=== PATIENT | female | born 1940 | race Caucasian/White ===

== ENCOUNTER → 2018-06-25 15:27 | Outpatient (CLI) | payer MEDICARE, SELFPAY ==
[2018-06-25 17:49] LABS: Erythrocyte Sedimentation Rate 15 mm/hr (0-30)
[2018-06-25 17:56] LABS: Absolute Lymphocyte Count 3.28 X10^3/ul (0.83-4.51); Absolute Neutrophil Count 7.4 X10^3/uL (2.0-7.7); Basophil# 0.04 X10^3/uL; Basophil% 0.3 % (0-1); Eosinophil# 0.18 X10^3/uL; Eosinophils% 1.5 % (0-5); Hematocrit 49.8 % (37-47); Hemoglobin 16.2 g/dl (12.0-15.0); Lymphocyte # 3.28 X10^3/ul (4.0); Lymphocyte % 27.6 % (19-41); Mean Corp Hgb Conc 32.5 g/gl (32-36); Mean Corpuscular Hgb 33.8 pg (27.0-32.0); Mean Corpuscular Volume 103.8 fL (81-99); Mean Platelet Vol. 11.2 fl (6.2-12.0); Monocyte# 1.01 X10^3/uL; Monocyte% 8.5 % (0-10); Neutrophil # 7.36 X10^3/uL (2.7-7.7); Neutrophil % 61.8 % (47-70); Platelet Count 253 K/mm3 (150-450); RBC Distribution Width CV 13.8 % (11.6-14.6); RBC Distribution Width SD 51.8 fl (35.1-43.9); White Blood Count 11.9 K/mm3 (4.4-11.0)
[2018-06-25 18:06] LABS: POSITIVE COUNT NO; POSITIVE DIFFERENTIAL NO; POSITIVE MORPHOLOGY NO
[2018-06-25 18:22] LABS: ALB/GLOB Ratio 0.9 RATIO (0.9-2.4); AST(SGOT) 14 U/L (15-37); Alanine Aminotransfer ALT/SGPT 19 U/L (13-56); Albumin, Serum 3.4 g/dL (3.2-5.0); Alkaline Phosphatase 95 U/L (45-117); Anion Gap 8 (5-15); BUN 17 mg/dL (7-18); BUN/Creat Ratio 24.3 RATIO (10-20); Calcium,Total 9.2 mg/dL (8.5-10.1); Chloride 98 mmol/L (98-107); EST Glomerular Filtration Rate 86 mL/min (>60); Est Glom Filt Rate - Afr Amer 104 mL/min (>60); Globulin 3.8 g/dL (2.2-4.2); Glucose 105 mg/dL (74-106); Potassium 3.4 mmol/L (3.5-5.1); Protein, Total 7.2 g/dL (6.4-8.2); Sodium Level 140 mmol/L (136-145)
[2018-06-28 12:14] LABS: ANTINUCLEAR ANTIBODIES DIRECT Negative (Negative)
== END ==
PROVIDERS: Family Provider Internal Medicine; PCP Internal Medicine; Referring Provider Internal Medicine Rheumatology; Visit Provider Internal Medicine Rheumatology
DX: L40.59 Other psoriatic arthropathy (principal); Z79.899 Other long term (current) drug therapy; L40.8 Other psoriasis; M47.897 Other spondylosis, lumbosacral region; K21.9 Gastro-esophageal reflux disease without esophagitis; J84.10 Pulmonary fibrosis, unspecified; I48.0 Paroxysmal atrial fibrillation; K44.9 Diaphragmatic hernia without obstruction or gangrene; I10 Essential (primary) hypertension; F32.89 Other specified depressive episodes; G47.33 Obstructive sleep apnea (adult) (pediatric)
CPT/HCPCS: 36415; 80053; 85025; 85652; 86038; 86140

== ENCOUNTER 2021-06-26 15:20 | Emergency (ER) | payer OTHER, MEDICARE, SELFPAY ==
[2021-06-26 15:22] VITALS: BP 165/100; PULSE 69; PULSE 72; RESP 17; RESP 18; TEMP 36.5; O2SAT 91; O2SAT 95; BMI 36.5
--- NOTE | 2021-06-26 15:37 | ED.VIS.FALL ---
HPI HPI - Fall History of Present Illness Chief Complaint: Fall Detail of Chief Complaint: Mechanical fall injuring right shoulder Informant: patient Occured/Mechanism Occurred: Hours Mechanism/Context: Yes same level fall, Yes trip and Yes other see narrative below Narrative: Patient states she was walking through the neighbors yards. She went through a pile of leaves. She tripped on something. She landed on her right shoulder. She complains of pain and inability to move the right shoulder. She has had no prior orthopedic injury to the right shoulder. She denies paresthesia, anesthesia or motor weakness. Pain/Injury Pain Location: upper extremity (Right shoulder) Quality of Pain: Dull and Aching Current Severity: Moderate Maximum Severity: Severe Worsened by: To move Relieved by: Nothing Associated Symptoms Associated Symptoms: Positive for Loss of function; Negative for Parasthesias, Weakness, Inability to ambulate, Loss of consciousness and Amnesia Narrative Narrative: Patient is an elderly woman with history of hypertension, connective tissue disorder, on anticoagulant who presents after mechanical fall. She denies head trauma. She denies headache. She denies nausea vomiting. She denies visual, ocular auditory symptoms. She denies jaw pain. She denies neck pain. She denies paresthesia, anesthesia medics present at time of the fall. There is no history of black or maroon-colored stool. Tetanus Immunization: >10 years Prior similar symptoms: No Recent Illness/Hospitalization: No PFSH PFSH Medical History A-fib COPD (chronic obstructive pulmonary disease) Psoriatic arthritis Home Medications atenolol 25 mg PO DAILY 06/26/21 [History Last Taken Unknown] carisoprodol [Soma] 350 mg PO QHS 06/26/21 [History Last Taken Unknown] famotidine 20 mg PO DAILY 06/26/21 [History Last Taken Unknown] folic acid 1 mg PO DAILY 06/26/21 [History Last Taken Unknown] hydrochlorothiazide 12.5 mg PO DAILY 06/26/21 [History Last Taken Unknown] ipratropium bromide 2 ml INHALATION DAILY 06/26/21 [History Last Taken Unknown] methotrexate sodium 06/26/21 [History Last Taken Unknown] oxycodone-acetaminophen 1 tab PO Q6H PRN PRN 5 Days #20 tablet 06/26/21 [Rx Last Taken Unknown] prednisone 20 mg PO DAILY 06/26/21 [History Last Taken Unknown] rivaroxaban [Xarelto] 20 mg PO DAILY 06/26/21 [History Last Taken Unknown] tramadol 50 mg PO TID PRN 06/26/21 [History Last Taken Unknown] Allergy/AdvReac Type Severity Reaction Status Date / Time No Known Allergies Allergy Verified 06/26/21 15:21 Surgical History H/O hernia repair History of appendectomy History of bladder suspension procedure History of cholecystectomy History of partial hysterectomy Social History (Updated 06/26/21 @ 15:[address] Elan Rubi MD) household members: none Smoking Status: Former smoker substance use type: does not use ROS ROS ED Constitutional Constitutional ED: Denies chills, fever(s), subjective, sweats or weight loss Eyes Eyes: Denies blurry vision, change in vision or diplopia ENT ENT ED: Reports other Details: There is no complaint of ringing or ears. There is no drainage from her ears. She denies epistaxis. ; Denies ear pain, rhinorrhea or sore throat Cardiovascular Cardiovascular: Denies chest pain or palpitations Respiratory/Chest Respiratory/Chest: Denies dyspnea or dyspnea on exertion Gastrointestinal Gastrointestinal: Denies abdominal pain, melena, nausea or vomiting Musculoskeletal Musculoskeletal: Reports other Details: Right shoulder pain ; Denies arthralgias, back pain, myalgias or neck pain Integumentary Denies Abrasions Neurologic Neurologic: Denies paresthesias or weakness Endocrine Endocrinology: Denies polydipsia, polyphagia or polyuria Hematologic/Lymphatic Hematologic/Lymphatic: Reports easy bruising EXAM Physical Exam Const Vital Signs: 06/26/21 15:22 06/26/21 16:04 Temperature 97.7 F L Temperature Source Oral Pulse Rate 69 Respiratory Rate 17 Blood Pressure 165/100 H Blood Pressure Mean 121 Pulse Ox 95 87 Oxygen Delivery Method Room Air Room Air Positive well nourished, well developed and obese General Appearance ED: well developed; Negative for NAD Nutritional Appearance: obese HEENT Reports normocephalic and TM's clear HEENT Narrative: There is no septal deviation hematoma. There is no TMJ tenderness. atraumatic Tympanic Membrane ED: Yes TM's clear Eyes PERRL and EOMs intact bilaterally Eyes Narrative: There is no subconjunctival hemorrhage noted. General Eye ED: Negative for pale conjunctiva or scleral icterus Neck full ROM, no lymphadenopathy and supple Neck Narrative: C-spine was cleared per Nexus criteria. Chest Wall inspection of chest normal and palpation of chest normal Resp normal respiratory effort and clear to auscultation bilaterally Cardio regular rate, regular rhythm, S1 normal heart sound, S2 normal heart sound and no murmurs Back/Spine no CVA tenderness Cervical Spine: Negative for cervical spine tenderness Thoracic Spine / Upper Back: Negative for thoracic spinal tenderness Extremity normal capillary refill and no clubbing, cyanosis or edema; Negative for normal to inspection, full ROM or no joint enlargement Extremity Narrative: There is swelling of the left shoulder compared to the right. There is pain to palpation of the proximal humerus. There is no pain the patient of the clavicle or AC joint. Axillary, median, radial and ulnar function intact. Radial pulses palpable. There is no pain the patient over the lateral medial epicondyle, olecranon process radial head. Is no pain the patient with distal radius or ulna. There is no pain the patient of the carpal bones, metacarpal bones or phalanges. Left Upper Extremity: shoulder joint; Negative for clavicle, bony scapula, elbow joint, lower arm, wrist or hand and digits Neuro oriented x3 and CN's II-XII intact bilaterally [place] Coma Scale: document GCS findings Spontaneous Obeys Commands Oriented 15 Sensorium / Orientation: alert Motor Exam: strength 5/5 throughout Psych mental status grossly normal and thought process normal Skin Lesions: no lesions Rashes: no rashes MDM MDM MDM Narrative Medical decision making narrative: Since patient received 30 mg of IV Toradol and is elderly with history of hypertension will obtain BMP to assess renal function. Patient was medicated with morphine in the emergency department. X-ray was obtained to determine extent of injury. Differential is contusion versus fracture versus fracture dislocation versus dislocation. Patient was treated with sling swath refer to orthopedics. Lab Data Attestation: I reviewed the patient's lab results. Lab results narrative: Renal function is normal. Labs: Laboratory Results - last 24 hr 06/26/21 15:34 Sodium 141 Potassium 3.3 L Chloride 105 Carbon Dioxide 32.0 Anion Gap 4 L BUN 29 H Creatinine 0.70 Estim Creat Clear Calc 35.49 Est GFR (MDRD) Af Amer 104 Est GFR (MDRD) Non-Af 86 BUN/Creatinine Ratio 41.6 H Glucose 103 Calcium 9.2 Radiography Diagnostic Testin view x-ray of the right shoulder was interpreted by me at 08/26/2000. Patient has a nondisplaced proximal right humerus fracture at the surgical neck. Discharge Plan Triage Chief Complaint: Fall ED Provider: Elan Rubi Dx/Rx/DC Orders Clinical Impression: Fracture of humerus, proximal, right, closed Instructions: ED Fracture, Shoulder Prescriptions: New oxycodone-acetaminophen [oxycodone-acetaminophen] 1 TABLET tablet 1 tab PO Q6H PRN PRN (Reason: pain) 5 Days Qty: 20 RF: 0 No Action carisoprodol [Soma] 350 mg tablet 350 mg PO QHS RF: 0 prednisone 20 mg tablet 20 mg PO DAILY RF: 0 atenolol 25 mg tablet 25 mg PO DAILY RF: 0 tramadol 50 mg tablet 50 mg PO TID PRN (Reason: Pain) RF: 0 famotidine 20 mg tablet 20 mg PO DAILY RF: 0 methotrexate sodium 2.5 mg tablet RF: 0 hydrochlorothiazide 12.5 mg capsule 12.5 mg PO DAILY RF: 0 folic acid 1 mg tablet 1 mg PO DAILY RF: 0 ipratropium bromide 0.02 % solution 2 ml inhalation DAILY RF: 0 Xarelto 20 mg tablet 20 mg PO DAILY RF: 0 Primary Care Provider: Weston Frias Referrals: Weston Frias MD [Primary Care Provider] - Patricio Mccauley MD [STAFF PHYSICIAN] - 5-7 Days Activity Restrictions/Additional Instructions: 1. Where sling and swath for immobilization and comfort 2. Starting tomorrow remove your arm from the sling and move it gently side to side 3. Apply ice 6-8 times a day 4. Take pain medicine prescribed. Hold tramadol while taking pain medicine you were prescribed for the shoulder fracture Disposition Disposition: Home, Self Care
--- NOTE | 2021-06-26 15:45 | RAD_ITS ---
STUDY: X-RAY - RIGHT SHOULDER REASON FOR EXAM: Female, 81 years old. Injury/Pain TECHNIQUE: 2 view(s) of the shoulder. COMPARISON: None. FINDINGS: Normal glenohumeral articulation. Normal acromioclavicular joint. Normal acromion. Acute impacted fracture of the humeral head. The soft tissue structures are unremarkable. Normal visualized pulmonary apex. RAD/Shoulder min 2 Views IMPRESSION: Acute impacted fracture of the humeral head. Electronically Signed: Dharmesh Martinez MD at 16:50 EDT Tel , Service support ,
[2021-06-26] MEDS: morphine 8 MG/ML Syringe 6 MG IV (15:46)
[2021-06-26 15:51] LABS: Anion Gap 4 (5-15); BUN 29 mg/dL (7-18); BUN/Creat Ratio 41.6 RATIO (10-20); Calcium,Total 9.2 mg/dL (8.5-10.1); Chloride 105 mmol/L (98-107); EST Glomerular Filtration Rate 86 mL/min (>60); Est Glom Filt Rate - Afr Amer 104 mL/min (>60); Estimated Creatinine Clearance 35.49 ml/min; Glucose 103 mg/dL (74-106); Potassium 3.3 mmol/L (3.5-5.1); Sodium Level 141 mmol/L (136-145)
[2021-06-26 16:04] VITALS: O2SAT 87
[2021-06-26 16:05] VITALS: O2SAT 96
[2021-06-26 16:26] VITALS: BP 165/82; PULSE 71; RESP 18; O2SAT 98
== END 2021-06-26 17:19 | disposition home or self-care (01) ==
LOC: ED 16:10
PROVIDERS: Emergency Provider Emergency Medicine; PCP Internal Medicine
DX: S42.214A Unspecified nondisplaced fracture of surgical neck of right humerus, initial encounter for closed fracture (principal); W01.0XXA Fall on same level from slipping, tripping and stumbling without subsequent striking against object, initial encounter; Y93.01 Activity, walking, marching and hiking; Y92.096 Garden or yard of other non-institutional residence as the place of occurrence of the external cause; E66.9 Obesity, unspecified; Z68.36 Body mass index [BMI] 36.0-36.9, adult; I10 Essential (primary) hypertension; I48.91 Unspecified atrial fibrillation; J44.9 Chronic obstructive pulmonary disease, unspecified; L40.50 Arthropathic psoriasis, unspecified; Z79.01 Long term (current) use of anticoagulants; Z79.899 Other long term (current) drug therapy; Z87.891 Personal history of nicotine dependence
CPT/HCPCS: 73030; 80048; 96374; 99285; A4216

== ENCOUNTER 2021-10-26 11:40 | Outpatient (CLI) | payer MEDICARE, SELFPAY ==
[2021-10-26 15:33] LABS: Absolute Lymphocyte Count 2.52 X10^3/uL (0.83-4.51); Absolute Neutrophil Count 6.7 X10^3/uL (2.0-7.7); Basophil# 0.06 X10^3/uL; Basophil% 0.6 % (0-1); Eosinophil# 0.19 X10^3/uL; Eosinophils% 1.9 % (0-5); Hematocrit 49.7 % (37-47); Hemoglobin 15.4 g/dL (12.0-15.0); Lymphocyte # 2.52 X10^3/ul (0.83-4.51); Lymphocyte % 25.1 % (19-41); Mean Corpuscular Volume 103.3 fL (81-99); Mean Platelet Vol. 10.8 fl (6.2-12.0); Monocyte# 0.53 X10^3/uL; Monocyte% 5.3 % (0-10); NRBC Flagged by Analyzer 0 % (0-5); Neutrophil % 66.8 % (47-70); Platelet Count 253 K/mm3 (150-450); RBC Distribution Width CV 14.5 % (11.6-14.6); RBC Distribution Width SD 55.3 fl (35.1-43.9); Red Blood Count 4.81 M/mm3 (4.2-5.4)
[2021-10-26 15:48] LABS: Albumin, Serum 3.4 g/dL (3.2-5.0); Anion Gap 4 (5-15); BUN 19 mg/dL (7-18); BUN/Creat Ratio 30.9 RATIO (10-20); Calcium,Total 9.5 mg/dL (8.5-10.1); Chloride 103 mmol/L (98-107); Creatinine, Serum 0.61 mg/dL (0.55-1.02); EST Glomerular Filtration Rate 99 mL/min (>60); Est Glom Filt Rate - Afr Amer 120 mL/min (>60); Glucose 97 mg/dL (74-106); Potassium 3.8 mmol/L (3.5-5.1); Sodium Level 141 mmol/L (136-145)
== END 2021-10-26 23:59 | disposition home or self-care (01) ==
LOC: MTLAB 11:40
PROVIDERS: PCP Internal Medicine; Referring Provider Physician Assistant Surgical; Visit Provider Physician Assistant Surgical
DX: Z01.818 Encounter for other preprocedural examination (principal)
CPT/HCPCS: 36415; 80048; 82040; 85025

== ENCOUNTER → 2021-12-23 | Outpatient (CLI) | payer MEDICARE, SELFPAY | END | disposition home or self-care (01) | LOC: LABSPEC 15:12 | PROVIDERS: PCP Internal Medicine; Visit Provider Otolaryngology Otolaryngology/Facial Plastic Surgery | DX: R09.81 Nasal congestion (principal) | CPT/HCPCS: 87070; 87186; 87205 ==

== ENCOUNTER → 2022-02-28 | Outpatient (CLI) | payer MEDICARE, SELFPAY ==
[2022-02-28 12:38] LABS: Erythrocyte Sedimentation Rate 21 mm/hr (0-30)
[2022-02-28 12:41] LABS: Absolute Neutrophil Count 7.2 X10^3/uL (2.0-7.7); Basophil# 0.07 X10^3/uL; Basophil% 0.7 % (0-1); Eosinophil# 0.14 X10^3/uL; Eosinophils% 1.4 % (0-5); Hematocrit 48.9 % (37-47); Hemoglobin 15.5 g/dL (12.0-15.0); Lymphocyte % 20.5 % (19-41); Mean Corp Hgb Conc 31.7 g/dL (32-36); Mean Corpuscular Hgb 32.7 pg (27.0-32.0); Mean Corpuscular Volume 103.2 fL (81-99); Mean Platelet Vol. 10.9 fl (6.2-12.0); Monocyte# 0.66 X10^3/uL; Monocyte% 6.4 % (0-10); NRBC Flagged by Analyzer 0 % (0-5); Neutrophil # 7.23 X10^3/uL (2.7-7.7); Neutrophil % 70.4 % (47-70); Platelet Count 268 K/mm3 (150-450); RBC Distribution Width CV 14.6 % (11.6-14.6); RBC Distribution Width SD 55.6 fl (35.1-43.9); Red Blood Count 4.74 M/mm3 (4.2-5.4); White Blood Count 10.3 K/mm3 (4.4-11.0)
== END | disposition home or self-care (01) ==
LOC: LAB 11:38
PROVIDERS: PCP Family Medicine; Visit Provider Specialist
DX: Z96.611 Presence of right artificial shoulder joint (principal)
CPT/HCPCS: 36415; 85025; 85652; 86140

== ENCOUNTER → 2022-03-07 | Outpatient (CLI) | payer MEDICARE, SELFPAY | END | disposition home or self-care (01) | LOC: LABSPEC 12:57 | PROVIDERS: PCP Family Medicine; Visit Provider Specialist | DX: Z96.611 Presence of right artificial shoulder joint (principal) | CPT/HCPCS: 87015; 87070; 87075; 87101; 87116; 87205; 87206 ==

== ENCOUNTER → 2022-04-12 | Outpatient (CLI) | payer MEDICARE, SELFPAY ==
--- NOTE | 2022-04-12 15:42 | RAD_ITS ---
HISTORY: NECK PAIN. TECHNIQUE: XR Spine Cervical 4 or 5 Views. COMPARISON: None. FINDINGS: VERTEBRAE: Generalized osteopenia. No acute fracture identified. ALIGNMENT: 2 mm anterolisthesis of C2-3 and 2 mm retrolisthesis of C4-5. INTERVERTEBRAL DISCS: Degenerative endplate changes with intervertebral disc space narrowing at multiple levels particularly C3-4 through C6-7. SOFT TISSUES: No prevertebral soft tissue thickening. RAD/Cerv Spine 2 or 3 Views IMPRESSION: No acute fracture or dislocation identified in the cervical spine. Minimal anterolisthesis of C2-3 and retrolisthesis of C4-5. Multilevel degenerative change. Electronically Signed: Heather Leiva MD at 16:38 EDT ,
== END | disposition home or self-care (01) ==
LOC: RAD 15:39
PROVIDERS: PCP Family Medicine; Referring Provider Anesthesiology Pain Medicine; Visit Provider Anesthesiology Pain Medicine
DX: M54.2 Cervicalgia (principal)
CPT/HCPCS: 72040

== ENCOUNTER → 2022-06-08 | Outpatient (CLI) | payer MEDICARE, SELFPAY ==
[2022-06-08 11:23] LABS: Amphetamine Urine VISTA NEGATIVE (<1000 ng/mL); Barbiturate Urine VISTA NEGATIVE (< 200 ng/mL); Benzodiazepine Urine VISTA NEGATIVE (< 200 ng/mL); Cocaine Urine VISTA NEGATIVE (< 300 ng/mL); Ecstacy Urine VISTA NEGATIVE (< 500 ng/mL); Methadone Urine VISTA NEGATIVE (< 300 ng/mL); PCP Urine VISTA NEGATIVE (< 25 ng/mL); THC Urine VISTA NEGATIVE (< 50 ng/mL); Vista UDS pH Range 5
== END | disposition home or self-care (01) ==
LOC: LABSPEC 10:40 → LAB 12:51
PROVIDERS: Referring Provider Anesthesiology Pain Medicine; Visit Provider Anesthesiology Pain Medicine
DX: F11.20 Opioid dependence, uncomplicated (principal)
CPT/HCPCS: 80307

== ENCOUNTER → 2022-11-21 | Outpatient (CLI) | payer MEDICARE, SELFPAY ==
[2022-11-21 12:41] LABS: Erythrocyte Sedimentation Rate 5 mm/hr (0-30)
[2022-11-21 12:42] LABS: Absolute Lymphocyte Count 2.24 X10^3/uL (0.83-4.51); Absolute Neutrophil Count 7.6 X10^3/uL (2.0-7.7); Basophil# 0.06 X10^3/uL; Basophil% 0.6 % (0-1); Eosinophils% 0.9 % (0-5); Hematocrit 52.2 % (37-47); Hemoglobin 16.4 g/dL (12.0-15.0); Lymphocyte # 2.24 X10^3/ul (0.83-4.51); Lymphocyte % 20.7 % (19-41); Mean Corp Hgb Conc 31.4 g/dL (32-36); Mean Corpuscular Hgb 31.2 pg (27.0-32.0); Mean Corpuscular Volume 99.4 fL (81-99); Mean Platelet Vol. 10.7 fl (6.2-12.0); Monocyte# 0.81 X10^3/uL; Monocyte% 7.5 % (0-10); NRBC Flagged by Analyzer 0 % (0-5); Neutrophil # 7.55 X10^3/uL (2.7-7.7); Neutrophil % 69.9 % (47-70); Platelet Count 256 K/mm3 (150-450); RBC Distribution Width CV 13.5 % (11.6-14.6); RBC Distribution Width SD 49.8 fl (35.1-43.9); Red Blood Count 5.25 M/mm3 (4.2-5.4); White Blood Count 10.8 K/mm3 (4.4-11.0)
== END | disposition home or self-care (01) ==
PROVIDERS: PCP Family Medicine; Referring Provider Specialist; Visit Provider Specialist
DX: Z96.611 Presence of right artificial shoulder joint (principal)
CPT/HCPCS: 36415; 85025; 85652; 86140

== ENCOUNTER → 2023-05-18 | Outpatient (CLI) | payer MEDICARE, SELFPAY ==
[2023-05-20 22:08] LABS: QNTFERON TB Mitogen Value > 10.00 IU/mL (.); QNTFERON TB Nil Value 0.11 IU/mL (.); QNTFERON TB1+ Ag Value 0.32 IU/mL (.); QNTFERON TB2+ Ag Value 0.38 IU/mL (.); QNTIFERON TB Positive Criteria Negative (Negative)
== END | disposition home or self-care (01) ==
PROVIDERS: PCP Family Medicine; Referring Provider Dermatology; Visit Provider Dermatology
DX: L40.0 Psoriasis vulgaris (principal); Z79.899 Other long term (current) drug therapy
CPT/HCPCS: 36415; 86480

== ENCOUNTER → 2023-08-28 | Outpatient (CLI) | payer MEDICARE, SELFPAY ==
--- NOTE | 2023-08-28 13:30 | RAD_ITS ---
INDICATION: RADICULOPATHY EXAMINATION/TECHNIQUE: X-RAY - XR Spine Thoracic 3 Views COMPARISON: No relevant prior comparison study available FINDINGS: VERTEBRAE: Preserved vertebral body height. No fracture. No spondylolisthesis. Preservation of the normal thoracic kyphosis. Dextroscoliosis. DISCS: Narrowing of mid thoracic disc spaces. Endplate spondylosis at multiple levels.. INCLUDED CHEST/ABDOMEN: Partially visualized density likely calcification lateral aspect of the right mid chest. RAD/Thoracic Spine 3 Views IMPRESSION: Degenerative changes of the thoracic spine as described above. Electronically Signed: Erasmo Thomas MD at 14:07 EST ,
--- OUTSIDE RECORDS SUMMARY | 2023-08-28 14:41 | XMS RPT_ITS | CCD ---
Author Name Unknown Address [address] [place] [address] Organization [facility] Care Team Providers Care Vessel Slag Worker Name Role Phone Nieves Oh Unavailable Unavailable Altagracia, Nieves Unavailable Unavailable Altagracia, Nieves Unavailable Unavailable TsivitseAnuj Unavailable Unavailable Altagracia, Nieves Unavailable Unavailable Altagrcaia, Nieves Unavailable Unavailable Helene, Sharif Unavailable Unavailable Altagracia, Nieves Unavailable Unavailable Altagracia, Nieves Unavailable Unavailable Nieves Vazquez Primary Care Provider [phone] Nieves Vazquez Primary Care Provider [phone] Nieves Vazquez MD Primary Care Provider Nieves Vazquez MD Primary Care Provider DR NIEVES VAZQUEZ MD Primary Care Physician Nieves Vazquez MD Primary Care Provider Nieves Vazquez Primary Care Provider Giselle Elizondo MD Primary Care Provider Giselle Elizondo MD Primary Care Provider Giselle Elizondo Primary Care Provider Giselle Elizondo Primary Care Provider GISELLE ELIZONDO Attending Unavailable GISELLE ELIZONDO Primary Care Unavailable GISELLE ELIZONDO Primary Care Unavailable RUBY PRATER Referring Unava ilable MARU CASTELLON Attending Unavailable GISELLE ELIZONDO Primary Care Unavailable RUBY PRATER Referring Unava ilable GISELLE ELIZONDO Primary Care Unavailable ACACIA JOSE, RUBY L Referring Unava ilable KONTAK, GISELLE R Primary Care Unavailable KALKA, FERNANDA Attending Unavailable KONTAK, GISELLE R Referring Unavailable KALKA, FERNANDA Referring Unavailable KONTAK, GISELLE R Primary Care Unavailable KONTAK, GISELLE R Referring Unavailable KONTAK, GISELLE R Primary Care Unavailable KONTAK, GISELLE R Referring Unavailable KONTAK, GISELLE R Primary Care Unavailable KONTAK, GISELLE R Primary Care Unavailable KONTAK, GISELLE R Referring Unavailable KONTAK, GISELLE R Primary Care Unavailable KALKA, FERNANDA Referring Unavailable KONTAK, GISELLE R Primary Care Unavailable KALKA, FERNANDA Referring Unavailable KONTAK, GISELLE R Primary Care Unavailable SHERITA PEREZ Attending Unavailable KALKA, FERNANDA Referring Unavailable GERSTENMAIER, JAY CERVANTES Referring Unavail able KONTAK, GISELLE Primary Care Unavailable GERSTENMAIERJAY Attending Unavail able KONTAK, GISELLE Primary Care Unavailable REJI MENDOSA Attending Unavailable KONTAK, GISELLE Primary Care Unavailable GERSTENMAIER, JAY CERVANTES Attending Unavail able GERSTENMAIER, JAY CERVANTES Referring Unavail able KONTAK, [facility] Primary Care Unavailable KAREN MENDOZA Attending Unavailable KATHIAKAREN Referring Unavailable KONTAK, GISELLE Primary Care Unavailable NO BLANCAS Attending Unavailable GERSTENMAIER, JAY CERVANTES Referring Unavail able KONTAK, GISELLE Primary Care Unavailable GERSTENMAIERJAY Attending Unavail able GERSTENMAIER, JAY CERVANTES Referring Unavail able KONTAK, [facility] Primary Care Unavailable Medications Current Medications Medication Drug Class(es) Dates Sig (Normalized) Sig (Original) acetaminophen 500 mg oral tablet (2 sources) Start: 11-06-2021 End: 11-20-2021 take 1 tablet by mouth once daily acetaminophen 500 mg oral tablet Dose : 500 mg = 1 tab(s), Oral, TID, PRN as needed for pain, not to exceed 3000 mg/day, # 100 tab(s), 0 Refill(s), 11/20/21 10:33:00 EDT, [facility], [facility], cm, 11/05/21 17:08:00 EDT, Height, kg, 11/05/21 17:08:00 EDT, Dosing Weight Start Date: 11/06/21 Stop Date: 11/20/21 Status: Ordered Completed/Discontinued Medications Medication Drug Class(es) Dates Sig (Normalized) Sig (Original) acetaminophen 325 mg / oxyCODONE hydrochloride 10 mg oral tablet (11 sources) Opioid Agonist Start: 08-16-2018 End: 07-05-2022 take 1 tablet by mouth every eight hours as needed oxyCODONE-acetamino phen (PERCOCET 10) 10-325 mg tablet Take 1 tablet by mouth three times daily as needed. 0 08/16/2018 07/05/2022 Discontinued Problems Active Problems Problem Classification Problem Date Documented Da te Episodic/Chronic Cardiac dysrhythmias (20 sources) Unspecified atrial fibrillation; Translations: [Chronic atrial fibrillation] Onset: 7 Chronic Chronic obstructive pulmonary disease and bronchiectasis (20 sources) Chronic obstructive lung disease; Translations: [Chronic obstructive pulmonary disease, unspecified] Onset: 8 08-24-2017 Chronic Conditions associated with dizziness or vertigo (1 source) Dizziness and giddiness; Translations: [Dizziness and giddiness] Episodic E Codes: Adverse effects of medical drugs (1 source) Local anesthetic drug adverse reaction; Translations: [Adverse effect of local anesthetics, initial encounter] Onset: 2 Episodic Esophageal disorders (2 sources) Gastro-esophageal reflux disease without esophagitis; Translations: [Gastro-esophageal reflux disease without esophagitis] Onset: 7 Chronic Essential hypertension (20 sources) Essential (primary) hypertension; Translations: [Essential hypertension] Onset: 7 Chronic Fluid and electrolyte disorders (2 sources) Hypokalemia; Translations: [Hypokalemia] Onset: 3 Episodic Fracture of upper limb (1 source) Closed fracture of shaft of humerus; Translations: [Unspecified fracture of shaft of humerus, unspecified arm, initial encounter for closed fracture] Onset: 2 Episodic Gastrointestinal hemorrhage (3 sources) Gastrointestinal hemorrhage; Translations: [Hemorrhage of anus and rectum] Onset: 3 05-22-2023 Episodic Joint disorders and dislocations; trauma-related (2 sources) Inferior dislocation of right humerus, subsequent encounter; Translations: [Inferior dislocation of right humerus, subsequent encounter] Onset: 3 Episodic Nausea and vomiting (2 sources) Nausea; Translations: [Nausea] Onset: 3 05-22-2023 Episodic Osteoarthritis (2 sources) Unspecified osteoarthritis, unspecified site; Translations: [Unspecified osteoarthritis, unspecified site] Onset: 7 Chronic Osteoporosis (1 source) Osteoporosis; Translations: [Age-related osteoporosis without current pathological fracture] Chronic Other aftercare (2 sources) Encounter for follow-up examination after completed treatment for conditions other than malignant neoplasm; Translations: [Encounter for follow-up examination after completed treatment for conditions other than malignant neoplasm] Onset: 3 Episodic Other connective tissue disease (1 source) Shoulder joint prosthesis present; Translations: [Presence of unspecified artificial shoulder joint] Onset: 2 Chronic Other connective tissue disease (1 source) History of right shoulder arthroplasty; Translations: [Presence of right artificial shoulder joint] Chronic Other connective tissue disease (2 sources) Presence of right artificial shoulder joint; Translations: [Presence of right artificial shoulder joint] Onset: 3 Chronic Other gastrointestinal disorders (3 sources) Dysphagia; Translations: [Dysphagia, unspecified] Episodic Other gastrointestinal disorders (2 sources) Chronic constipation; Translations: [Other constipation] 05-22-2023 Episodic Other gastrointestinal disorders (1 source) Abdominal distension, gaseous; Translations: [Abdominal distension (gaseous)] 05-22-2023 Episodic Other gastrointestinal disorders (1 source) Constipation; Translations: [Other constipation] 05-22-2023 Episodic Other gastrointestinal disorders (2 sources) Other constipation; Translations: [Chronic constipation] Onset: 3 Episodic Other gastrointestinal disorders (1 source) Abdominal distension (gaseous); Translations: [Abdominal distension (gaseous)] Onset: 3 Episodic Other gastrointestinal disorders (2 sources) Dysphagia, unspecified; Translations: [Dysphagia, unspecified] Onset: 3 Episodic Other inflammatory condition of skin (2 sources) Psoriasis, unspecified; Translations: [Psoriasis, unspecified] Onset: 7 Chronic Other inflammatory condition of skin (20 sources) Psoriatic arthritis; 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, unspecified] Onset: 7 06-01-2017 Chronic Other inflammatory condition of skin (20 sources) Psoriasis; Translations: [Psoriasis, unspecified] Onset: 2 Chronic Other injuries and conditions due to external causes (2 sources) Choking; Translations: [Unspecified foreign body in larynx causing other injury, sequela] Episodic Other lower respiratory disease (4 sources) Pulmonary fibrosis, unspecified; Translations: [Pulmonary fibrosis, unspecified] Onset: 7 Chronic Other lower respiratory disease (20 sources) Fibrosis of lung; Translations: [Pulmonary fibrosis, unspecified] Onset: 7 06-01-2017 Chronic Other lower respiratory disease (6 sources) Solitary pulmonary nodule; Translations: [Shortness of breath] Onset: 7 Episodic Other lower respiratory disease (2 sources) Lung mass; Translations: [Lung nodule] 06-28-2017 Episodic Other lower respiratory disease (19 sources) Nodule of lung; Translations: [Solitary pulmonary nodule] Onset: 7 06-28-2017 Episodic Other lower respiratory disease (8 sources) Restrictive lung disease; Translations: [Other disorders of lung] Onset: 3 06-16-2023 Episodic Other lower respiratory disease (8 sources) Multiple nodules of lung; Translations: [Other nonspecific abnormal finding of lung field] Onset: 3 06-16-2023 Episodic Other nutritional; endocrine; and metabolic disorders (1 source) Abnormal weight loss; Translations: [Abnormal weight loss] 05-22-2023 Episodic Other nutritional; endocrine; and metabolic disorders (1 source) Abnormal weight loss; Translations: [Abnormal weight loss] Onset: 3 Episodic Other upper respiratory disease (1 source) Bleeding from nose; Translations: [Epistaxis, recurrent] Episodic Other upper respiratory infections (1 source) Viral upper respiratory tract infection; Translations: [Acute upper respiratory infection, unspecified] Episodic Pancreatic disorders (not diabetes) (2 sources) Cyst of pancreas; Translations: [Cyst of pancreas] Onset: 3 07-20-2023 Episodic Residual codes; unclassified (19 sources) Obstructive sleep apnea syndrome; Translations: [Obstructive sleep apnea (adult) (pediatric)] Onset: 7 06-01-2017 Chronic Screening or history of mental health and substance abuse (3 sources) Personal history of nicotine dependence; Translations: [Ex-cigarette smoker] Onset: 7 06-16-2023 Episodic Spondylosis; intervertebral disc disorders; other back problems (20 sources) Cervical spondylosis; Translations: [Spondylosis without myelopathy or radiculopathy, cervical region] Onset: 2 Chronic Unclassified (6 sources) Abnormal findings on diagnostic imaging of other specified body structures; Translations: [Patient encounter status] Onset: 7 Episodic Unclassified (2 sources) Sleep apnea, unspecified; Translations: [Sleep apnea, unspecified] Onset: 7 Unclassified (1 source) Chronic atrial fibrillation, unspecified; Translations: [Chronic atrial fibrillation (HCC)] Onset: 2 Past or Other Problems Problem Classification Problem Date Documented Da te Episodic/Chronic Diabetes mellitus without complication (2 sources) Hyperglycemia; Translations: [Hyperglycemia, unspecified] Onset: 11-03-2022 Episodic Other injuries and conditions due to external causes (2 sources) Unspecified foreign body in larynx causing other injury, sequela; Translations: [Unspecified foreign body in larynx causing other injury, sequela] Onset: 11-16-2022 Episodic Spondylosis; intervertebral disc disorders; other back problems (20 sources) Chronic low back pain; Translations: [Chronic midline low back pain without sciatica] Onset: 07-05-2022 Episodic Results Test Name Value Interpretation Reference Range Facil ity Vital Signs Date Time Vital Sign Value Performing Clinician Angy grimaldo 06-16-2023 15:03-0400 Body weight 74.39 kg Maru Castellon MD Work Phone: [facility] 06-16-2023 15:03-0400 Diastolic blood pressure 82 mm[Hg] Maru Castellon MD Work Phone: [facility] 06-16-2023 15:03-0400 Heart rate 67 /min Maru Castellon MD Work Phone: [facility] 06-16-2023 15:03-0400 Respiratory rate 16 /min Maru Castellon MD Work Phone: [facility] 06-16-2023 15:03-0400 SaO2% (BldA) [Mass fraction] 92 % Maru Castellon MD Work Phone: [facility] 06-16-2023 15:03-0400 Systolic blood pressure 138 mm[Hg] Maru Castellon MD Work Phone: [facility] 06-16-2023 14:59-0400 Body height 154 cm Pulm Wstr Work Phone: [facility] 06-16-2023 14:59-0400 Body weight 74.48 kg Pulm Wstr Work Phone: [facility] 06-16-2023 14:59-0400 Heart rate 67 /min Pulm Wstr Work Phone: [facility] 06-16-2023 14:59-0400 Respiratory rate 16 /min Pulm Wstr Work Phone: [facility] 06-16-2023 14:59-0400 SaO2% (BldA) [Mass fraction] 92 % Pulm Wstr Work Phone: [facility] 05-22-2023 11:31-0400 Body height 154.9 cm Fernanda Kalka PA-C Work Phone: [facility] 05-22-2023 11:31-0400 Diastolic blood pressure 80 mm[Hg] Fernanda Kalka PA-C Work Phone: [facility] 05-22-2023 11:31-0400 Heart rate 70 /min Fernanda Kalka PA-C Work Phone: [facility] 05-22-2023 11:31-0400 Systolic blood pressure 132 mm[Hg] Fernanda Kalka PA-C Work Phone: [facility] 11-28-2022 10:50-0400 Body height 154.9 cm Giselle Elizondo MD Work Phone: [facility] 11-28-2022 10:50-0400 Body weight 80.29 kg Giselle Elizondo MD Work Phone: [facility] 11-28-2022 10:50-0400 Diastolic blood pressure 68 mm[Hg] Giselle Elizondo MD Work Phone: [facility] 11-28-2022 10:50-0400 Heart rate 68 /min Giselle Elizondo MD Work Phone: [facility] 11-28-2022 10:50-0400 SaO2% (BldA) [Mass fraction] 92 % Giselle Elizondo MD Work Phone: [facility] 11-28-2022 10:50-0400 Systolic blood pressure 129 mm[Hg] Giselle Elizondo MD Work Phone: [facility] 07-11-2022 15:33-0500 Body height 154.9 cm Allyson Maradiaga [employer]OX TE[employer]DER WORKER SPECIALIST Work Phone: [facility] 07-11-2022 15:33-0500 Body temperature 98.1 [degF] Allyson Maradiaga [employer] TE[employer]OLDER WORKER SPECIALIST Work Phone: [facility] 07-11-2022 15:33-0500 Body weight 83.01 kg Allyson Maradiaga [employer] TE[employer].OLDER WORKER SPECIALIST Work Phone: [facility] 07-11-2022 15:33-0500 Diastolic blood pressure 79 mm[Hg] Allyson Maradiaga [employer] TE[employer].OLDER WORKER SPECIALIST Work Phone: [facility] 07-11-2022 15:33-0500 Heart rate 66 /min Allyson Maradiaga [employer] TE[employer].OLDER WORKER SPECIALIST Work Phone: [facility] 07-11-2022 15:33-0500 Respiratory rate 16 /min Allyson Maradiaga [employer] TE[employer].OLDER WORKER SPECIALIST Work Phone: [facility] 07-11-2022 15:33-0500 SaO2% (BldA) [Mass fraction] 91 % Allyson Maradiaga [employer] TE[employer].OLDER WORKER SPECIALIST Work Phone: [facility] 07-11-2022 15:33-0500 Systolic blood pressure 155 mm[Hg] Allyson Maradiaga [employer]OX TE[employer].OLDER WORKER SPECIALIST Work Phone: [facility] 07-05-2022 10:00-0500 Body height 154.9 cm Giselle Elizondo MD Work Phone: [facility] 07-05-2022 10:00-0500 Body weight 83.46 kg Giselle Elizondo MD Work Phone: [facility] 07-05-2022 10:00-0500 Diastolic blood pressure 85 mm[Hg] Giselle Elizondo MD Work Phone: [facility] 07-05-2022 10:00-0500 Heart rate 61 /min Giselle Elizondo MD Work Phone: [facility] 07-05-2022 10:00-0500 Systolic blood pressure 126 mm[Hg] Giselle Elizondo MD Work Phone: [facility] 11-06-2021 08:38-0400 Heart rate 73 /min DR MALCOM HINTON MD [facility] 11-06-2021 08:32-0400 Body temperature 98.96 [degF] DR MALCOM HINTON MD [facility] 11-06-2021 08:32-0400 Diastolic blood pressure 62 mm[Hg] DR MALCOM HINTON MD [facility] 11-06-2021 08:32-0400 Heart rate 73 /min DR MALCOM HINTON MD [facility] 11-06-2021 08:32-0400 Systolic blood pressure 116 mm[Hg] DR MALCOM HINTON MD [facility] 11-06-2021 04:50-0400 Body temperature 97.52 [degF] DR MALCOM HINTON MD [facility] 11-06-2021 04:50-0400 Diastolic blood pressure 73 mm[Hg] DR MALCOM HINTON MD [facility] 11-06-2021 04:50-0400 Heart rate 68 /min DR MALCOM HINTON MD [facility] 11-06-2021 04:50-0400 Respiratory rate 20 /min DR MALCOM HINTON MD [facility] 11-06-2021 04:50-0400 Systolic blood pressure 10 mm[Hg] DR MALCOM HINTON MD [facility] 11-05-2021 23:30-0400 Body temperature 98.6 [degF] DR MALCOM HINTON MD [facility] 11-05-2021 23:30-0400 Diastolic blood pressure 52 mm[Hg] DR MALCOM HINTON MD [facility] 11-05-2021 23:30-0400 Heart rate 65 /min DR MALCOM HINTON MD [facility] 11-05-2021 23:30-0400 Respiratory rate 20 /min DR MALCOM HINTON MD [facility] 11-05-2021 23:30-0400 Systolic blood pressure 89 mm[Hg] DR MALCOM HINTON MD [facility] 11-05-2021 19:18-0400 Diastolic Blood Pressure NBP [address] MALCOM HINTON MD [facility] 11-05-2021 19:18-0400 Heart rate 73 /min DR MALCOM HINTON MD [facility] 11-05-2021 19:18-0400 Reason For Taking VItal Signs DR MALCOM HINTON MD [facility] 11-05-2021 19:18-0400 Respiratory rate 18 /min DR MALCOM HINTON MD [facility] 11-05-2021 19:18-0400 Systolic Blood Pressure NBP [address] MALCOM HINTON MD [facility] 11-05-2021 17:08-0400 Body height [address] MALCOM HINTON MD [facility] 11-05-2021 17:08-0400 Body weight 84.[address] MALCOM HINTON MD [facility] 11-05-2021 17:08-0400 Body weight 35.13 kg/m2 DR MALCOM HINTON MD [facility] 11-05-2021 16:54-0400 Body temperature 97.7 [degF] DR MALCOM HINTON MD [facility] 11-05-2021 16:54-0400 Diastolic Blood Pressure NBP [address] MALCOM HINTON MD [facility] 11-05-2021 16:54-0400 Heart rate 66 /min DR MALCOM HINTON MD [facility] 11-05-2021 16:54-0400 Reason For Taking VItal Signs DR MALCOM HINTON MD [facility] 11-05-2021 16:54-0400 Systolic Blood Pressure NBP [address] MALCOM HINTON MD [facility] 11-05-2021 16:00-0400 Body temperature 97.34 [degF] DR MALCOM HINTON MD [facility] 11-05-2021 16:00-0400 Diastolic Blood Pressure NBP [address] MALCOM HINTON MD [facility] 11-05-2021 16:00-0400 Systolic Blood Pressure NBP [address] MALCOM HINTON MD [facility] 11-05-2021 15:07-0400 Body temperature 96.98 [degF] DR MALCOM HINTON MD [facility] 11-05-2021 14:45-0400 Body temperature 97.7 [degF] DR MALCOM HINTON MD [facility] 11-05-2021 14:30-0400 Body temperature 97.7 [degF] DR MALCOM HINTON MD [facility] 11-05-2021 14:15-0400 Body temperature 97.7 [degF] DR MALCOM HINTON MD [facility] 11-05-2021 11:21-0400 Body height [address] MALCOM HINTON MD [facility] 11-05-2021 11:21-0400 Body weight 84.[address] MALCOM HINTON MD [facility] 11-03-2021 11:10-0400 Heart rate 76 /min [facility] [employer] WORKER SPECIALIST [facility] 11-03-2021 11:10-0400 Respiratory rate 16 /min [facility] [facility] [employer] 11-03-2021 09:15-0400 Body temperature 97.34 [degF] [facility] [employer] [facility] [facility] 11-03-2021 09:15-0400 Diastolic blood pressure 59 mm[Hg] [facility] [employer] WORKER SPECIALIST [facility] 11-03-2021 09:15-0400 Heart rate 73 /min [facility] [employer] WORKER SPECIALIST [facility] 11-03-2021 09:15-0400 Reason For Taking VItal Signs RUBY MARIE [employer] WORKER SPECIALIST [facility] 11-03-2021 09:15-0400 Respiratory rate 18 /min RUBY MARIE [employer] WORKER SPECIALIST [facility] 11-03-2021 09:15-0400 Systolic blood pressure 123 mm[Hg] RUBY MARIE [employer] WORKER SPECIALIST [facility] 11-03-2021 08:59-0400 Heart rate 76 /min RUBY [place] [employer] WORKER SPECIALIST [facility] 11-03-2021 08:59-0400 Respiratory rate 16 /min RUBY MARIE [employer] WORKER SPECIALIST [facility] 11-03-2021 08:58-0400 Heart rate 64 /min RUBY [place] [employer] WORKER SPECIALIST [facility] 11-03-2021 05:59-0400 Heart rate 74 /min RUBY [place] [employer] WORKER SPECIALIST [facility] 11-02-2021 22:51-0400 Body temperature 98.78 [degF] RUBY GARYFIELD [employer] WORKER SPECIALIST [facility] 11-02-2021 22:51-0400 Diastolic blood pressure 89 mm[Hg] RUBY CYNTHIA [employer] WORKER SPECIALIST [facility] 11-02-2021 22:51-0400 Heart rate 104 /min RUBY CYNTHIA [employer] WORKER SPECIALIST [facility] 11-02-2021 22:51-0400 Reason For Taking VItal Signs [facility] [employer] WORKER SPECIALIST [facility] 11-02-2021 22:51-0400 Systolic blood pressure 141 mm[Hg] RUBY CYNTHIA [employer] WORKER SPECIALIST [facility] 11-02-2021 18:34-0400 Heart rate 70 /min RUBY [place] [employer] WORKER SPECIALIST [facility] 11-02-2021 15:53-0400 Body temperature 97.88 [degF] RUBY CYNTHIA [employer] WORKER SPECIALIST [facility] 11-02-2021 15:53-0400 Diastolic blood pressure 76 mm[Hg] RUBY CYNTHIA [employer] WORKER SPECIALIST [facility] 11-02-2021 15:53-0400 Reason For Taking VItal Signs RUYB CYNTHIA [employer] WORKER SPECIALIST [facility] 11-02-2021 15:53-0400 Systolic blood pressure 128 mm[Hg] RUBY CYNTHIA [employer] WORKER SPECIALIST [facility] 11-02-2021 13:00-0400 Body weight 35.13 kg/m2 [facility] [employer] WORK[employer] SPECIAL[employer] [facility] 11-02-2021 10:52-0400 diastolic 87 mm[Hg] [facility] [employer] WORKER SPECIALIST [facility] 11-02-2021 10:52-0400 systolic 152 mm[Hg] [facility] [employer] 11-02-2021 10:24-0400 diastolic 87 mm[Hg] [facility] [employer] WORKER SPECIALIST [facility] 11-02-2021 10:24-0400 Heart rate 67 /min [facility] [employer] [facility] [facility] 11-02-2021 10:24-0400 systolic 154 mm[Hg] [facility] [employer] WORKER SPECIALIST [facility] 11-02-2021 10:11-0400 diastolic 90 mm[Hg] [facility] [employer] [facility] [facility] [facility] 11-02-2021 10:11-0400 Heart rate 74 /min [facility] [employer] WORK[employer] [facility] 11-02-2021 10:11-0400 systolic 159 mm[Hg] RUBY [facility] [employer] WORKER SPECIALIST [facility] 11-02-2021 09:31-0400 Body height 155 cm [facility] [employer] WORKER SPECIALIST [facility] 11-02-2021 09:31-0400 Body temperature 98.6 [degF] [facility] [employer] WORKER SPECIALIST [facility] 11-02-2021 09:31-0400 Body weight 84.4 kg [facility] [employer] WORK[employer] SPECIALIST [facility] 09-03-2021 11:22-0500 Body height [address] MALCOM HINTON MD [facility] 09-03-2021 11:22-0500 Body weight 84.[address] MALCOM HINTON MD [facility] 09-03-2021 11:22-0500 Body weight 36.05 kg/m2 DR MALCOM HINTON MD [facility] 09-03-2021 11:22-0500 diastolic 100 mm[Hg] DR MALCOM HINTON MD [facility] 09-03-2021 11:22-0500 Heart rate 63 /min DR MALCOM HINTON MD [facility] 09-03-2021 11:22-0500 Respiratory rate 20 /min DR MALCOM HINTON MD [facility] 09-03-2021 11:22-0500 systolic 172 mm[Hg] DR MALCOM HINTON MD [facility] 04-24-2020 14:27-0400 BMI (Body Mass Index) 37.11 kg/m2 [place], [place] 04-24-2020 14:27-0400 Body weight 86.18 kg [place], [place] 04-24-2020 14:27-0400 Height 152.4 cm [place] 04-24-2020 14:15-0400 Body Temperature 98.91 [degF] [place], [place] 04-24-2020 14:15-0400 BP Diastolic 87 mm[Hg] [place] 04-24-2020 14:15-0400 BP Systolic 147 mm[Hg] [place] 04-24-2020 14:15-0400 Pulse (Heart Rate) 63 /min [place], [place] 04-24-2020 14:15-0400 Pulse Oximetry 92 % [place], [place] 04-24-2020 14:15-0400 Respiratory Rate 16 /min [place], [place] Encounters Encounter Date Encounter Type Care Provider Facility Start: 08-11-2023 Refill Jay wise PA-C Work Phone: [facility] Procedures Date Procedure Procedure Detail Performing Clinician Start: 06-16-2023 Co diffusing capacity E shruthi Castellon MD Work Phone: Start: 11-21-2022 CBC + DIFF [facility] Provid er Start: 03-29-2023 Radiologic exam swal low function contrast study Karen Mendoza PA-C Work Phone: Start: 07-05-2022 H/O: artificial joint History of right shoulder replacement Giselle Elizondo MD Work Phone: Start: 02-09-2022 Ct head/brain w/o & w/contrast material Fazal High MD Work Phone: Start: 02-09-2022 Creatinine blood Darion High MD Work Phone: Start: 02-01-2022 Ct upper extremity w /o contrast material Malcom Hinton MD Work Phone: Start: 11-05-2021 Shoulder region structure (body structure) DR MALCOM HINTON MD Plan of Treatment Date Care Activity Detail Author Start: 05-30-2026 [facility] Start: 11-03-2025 DIABETES SCREEN DIABETES SCREEN [facility] Start: 11-03-2025 [facility] Start: 10-28-2025 DIABETES SCREEN DIABETES SCREEN [facility] Start: 03-21-2024 DIABETES SCREEN DIABETES SCREEN [facility] Start: 11-29-2023 SHINGRIX VACCINE (1 of 2) SHINGRIX V ACCINE (1 of 2) [facility] Immunizations Immunization Date Immunization Notes Care Provider [facility] 10-04-2022 COVID-19 booster vaccine, age 12+ yr, bivalent (MODERNA) Giselle Elizondo MD Work Phone: [facility] 06-04-2022 influenza (aIIV4) vaccine, age 65+ yr, quadrivalent, PF (FLUAD QUADRIVALENT) Giselle Elizondo MD Work Phone: [facility] 06-04-2022 influenza virus vaccine, unspecified formulation 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 2017 [place] [id number] 2017-Present [address] [place] [address] Medicaid [id number] 2017 Medicaid [id number] 2014 Medicare UHC MEDICARE UHC MEDICARE COMPLETE xxxxxxxxx 2014-Present xxxxxxxxx [id number] 2014 Medicare [id number] 1940 Unknown [id number] Private Health Insurance Social History Date Type Detail Facility Start: 09-11-2018 End: 10-14-2022 Tobacco smoking status NHIS Former smoker [place], [place] End: 05-29-1976 History of tobacco use Current smoker [place], [place] End: 05-29-1976 History of tobacco use [facility] Start: 09-11-2018 End: 10-27-2022 Cigarettes smoked current (pack per day) - Reported [facility] Work Phone: Start: 09-11-2018 End: 08-08-2023 Alcohol intake Current non-drinker of alcohol (finding) [facility]HA Start: 1940 Sex Assigned At Not on file [facility] Start: 09-11-2018 End: 10-14-2022 Tobacco use and exposure Never used [facility] Sex Assigned At [facility] Start: 04-29-2022 End: 05-09-2022 Exposure to SARS-CoV-2 (event) Unable to assess [facility] Start: 07-01-2022 End: 02-20-2023 Exposure to SARS-CoV-2 (event) Not sure [facility] Start: 10-27-2022 End: 05-22-2023 Tobacco use panel [facility] Work Phone: Adult Depression Screening Assessment 2 [facility] Work Phone: Start: 05-22-2023 End: 06-16-2023 Alcohol intake Ex-drinker (finding) [facility] Clinical Notes 11-02-2021 to 08-11-2023 Telephone Encounter - Gregory Christopher LPN - 08/11/2023 10:19 AM ESTTelephone Encounter - Gregory Christopher LPN - 08/11/2023 10:19 AM Allegra De La Vega RT(R) - 07/20/2023 11:15 AM EST Note Date & Type Note Facility 08-11-2023 Telephone encounter Note Last follow up: 05/17/2023 Next appointment: Visit date not found No Known Allergies Requested Prescriptions Pending Prescriptions Disp Refills Spiriva HandiHaler 18 MCG inhalation capsule [Pharmacy Med Name: SPIRIVA HANDIHALER 18 MCG CAP] 90 capsule 3 Sig: inhale THE CONTENTS OF ONE CAPSULE IN THE HANDIHALER every morning levalbuterol (Xopenex) 0.63 MG/3ML nebulizer solution 360 mL 5 Sig: Take 1 ampule by nebulization every 6 hours as needed for wheezing or shortness of breath. ipratropium (Atrovent) 0.02 % nebulizer solution 300 mL 11 Sig: Take 2.5 mL (0.5 mg) by nebulization every 6 hours as needed for wheezing or shortness of breath. budesonide-formoterol (Symbicort) 160-4.5 MCG/ACT inhaler 30.6 g 3 Sig: Inhale 2 puffs in the morning and 2 puffs in the evening. Rinse mouth with water after use to reduce aftertaste and incidence of candidiasis. Do not swallow.. [facility] 08-11-2023 Miscellaneous Notes Last follow up: 05/17/2023 Next appointment: Visit date not found No Known Allergies Requested Prescriptions Pending Prescriptions Disp Refills Spiriva HandiHaler 18 MCG inhalation capsule [Pharmacy Med Name: SPIRIVA HANDIHALER 18 MCG CAP] 90 capsule 3 Sig: inhale THE CONTENTS OF ONE CAPSULE IN THE HANDIHALER every morning levalbuterol (Xopenex) 0.63 MG/3ML nebulizer solution 360 mL 5 Sig: Take 1 ampule by nebulization every 6 hours as needed for wheezing or shortness of breath. ipratropium (Atrovent) 0.02 % nebulizer solution 300 mL 11 Sig: Take 2.5 mL (0.5 mg) by nebulization every 6 hours as needed for wheezing or shortness of breath. budesonide-formoterol (Symbicort) 160-4.5 MCG/ACT inhaler 30.6 g 3 Sig: Inhale 2 puffs in the morning and 2 puffs in the evening. Rinse mouth with water after use to reduce aftertaste and incidence of candidiasis. Do not swallow.. documented in this encounter [facility] 07-20-2023 Note HNO ID: [id number] Author: Allegra Bermudez RT(R) Service: ? Author Type: Technologist Type: Progress Notes Filed: 07/20/2023 12:02 PM Note Text: Radiology Service Progress Note DATE OF SERVICE: July 20, 2023 TIME: 11:35 AM PATIENT IDENTITY VERIFICATION COMPLETED USING TWO (2) STANDARD IDENTIFIERS: Name and Date of confirmed by patient verbally. FALL SCREENING: Has the patient had 2 falls in the last year or 1 fall with injury or currently using an Ambulatory Assistive Device (Walker, Cane, Wheelchair, Crutches, etc.)? No PATIENT GENDER DATA: Female. status: : No status: NO. PATIENT RELEVANT IMPLANT DATA REVIEWED: Yes ALLERGIES: Reviewed and unchanged CONTRAST ALLERGY: NO. EXAM: MRI - CONTRAST TYPE: GROUP II PERIPHERAL IV DATA: Ambulatory: A peripheral IV was started in the Right antecubital site with a Angio cath: 22 gauge. RADIOLOGY DEPARTMENT: MR; Exam(s) Completed: Body: Pancreas/Biliary SIGNATURE: Allegra Bermudez RDMS, ASHLEY Estevez (GIS Cloud) PATIENT NAME: Lesli Rosales DATE: July 20, 2023 TIME: 11:35 AM [facility] 07-20-2023 History of Present illness Narrative Radiology Service Progress Note DATE OF SERVICE: July 20, 2023 TIME: 11:35 AM PATIENT IDENTITY VERIFICATION COMPLETED USING TWO (2) STANDARD IDENTIFIERS: Name and Date of confirmed by patient verbally. FALL SCREENING: Has the patient had 2 falls in the last year or 1 fall with injury or currently using an Ambulatory Assistive Device (Walker, Cane, Wheelchair, Crutches, etc.)? No PATIENT GENDER DATA: Female. status: : No status: NO. PATIENT RELEVANT IMPLANT DATA REVIEWED: Yes ALLERGIES: Reviewed and unchanged CONTRAST ALLERGY: NO. EXAM: MRI - CONTRAST TYPE: GROUP II PERIPHERAL IV DATA: Ambulatory: A peripheral IV was started in the Right antecubital site with a Angio cath: 22 gauge. RADIOLOGY DEPARTMENT: MR; Exam(s) Completed: Body: Pancreas/Biliary SIGNATURE: Allegra Bermudez RDMS, ASHLEY Estevez ([employer] Cloud) PATIENT NAME: Lesli Rosales DATE: July 20, 2023 TIME: 11:35 AM documented in this encounter [facility] 07-19-2023 Note HNO ID: [id number] Author: Maru Castellon MD Service: ? Author Type: Physician Type: Progress Notes Filed: 07/19/2023 10:23 AM Note Text: Despite multiple requests from [facility], have not received pathology reports of lung biopsy from 2012 and 2016 nor PACS images of last chest CT from 2020. Did receive office notes (not helpful as these are available in Care Everywhere) but did receive latest PFT data (very small print difficult to read): FVC 1.30 L 58% FEV1 0.70 L45% FEV1/FVC 50% DLCO 6.38 28% [facility] 07-19-2023 History of Present illness Narrative Despite multiple requests from [facility], have not received pathology reports of lung biopsy from 2012 and 2016 nor PACS images of last chest CT from 2020. Did receive office notes (not helpful as these are available in Care Everywhere) but did receive latest PFT data (very small print difficult to read): FVC 1.30 L 58% FEV1 0.70 L45% FEV1/FVC 50% DLCO 6.38 28% documented in this encounter [facility] 07-07-2023 Miscellaneous Notes The following approved medication requests have been transmitted electronically. Requested Prescriptions Signed Prescriptions Disp Refills carisoprodol (SOMA) 350 mg tablet 30 tablet 0 Sig: Take 1 tablet by mouth at bedtime as needed for up to 30 days. Authorizing Provider: GISELLE ELIZONDO MD Pharmacy verified in [facility] Patient has been identified by name and date of : Yes Patient aware RX will be sent to pharmacy. No need to notify patient. Patient phones for refill(s): Requested Prescriptions Pending Prescriptions Disp Refills carisoprodol (SOMA) 350 mg tablet 30 tablet 0 Sig: Take 1 tablet by mouth at bedtime as needed for up to 30 days. Date of last office visit : 05/22/2023 Date of next office visit : Visit date not found Last 2 Encounter Wt Readings: Date: Wt: 06/16/2023 74.4 kg (164 lb) 06/16/2023 74.5 kg (164 lb 3.2 oz) Not applicable Please advise. Anju Redman LPN Lesli Rosales is calling Giselle Elizondo MD today to request a medication not on current med list Carisoprodol (SOMA) 350 mg tablet Please send to [facility] when provider agrees for this fill Patient has been identified by name and birthdate. Duration of symptoms: ongoing Person calling: self Call patient at: at home [phone] (home) [phone] (work) [phone] (cell) Was an appointment scheduled: No Closing statement: Results or non-symptom based questions: Thank you for calling [facility], your call will be returned within the next business day. Janneth Matute documented in this encounter [facility] 06-16-2023 Note HNO ID: [id number] Author: Maru Castellon MD Service: ? Author Type: Physician Type: Progress Notes Filed: 06/16/2023 4:51 PM Note Text: . Respiratory Falcon Note Patient name: Lelsi Rosales PCP: Giselle Elizondo MD Referring Physician: Ruby Mendez, MARJ Consultation requested by Ruby Mendez for an opinion regarding transfer of care. My final recommendations will be communicated back to the requesting physician by way of shared Medical record or letter to requesting physician via US mail. CC: Lung issues HPI: Lesli Rosales 83 year old obese female former 17 pack year, quitting 1975 with PMH significant for AF, COPD, HTN, psoriasis with arthritis (may be on Skyrizi), pulmonary nodules, previously following with [facility]. Patient decided to obtain her pulmonary care closer to home as lupe Weeks. She had her medical records released to my office but I have yet to receive. Reviewing her EMR states that she has pulmonary fibrosis although this is not mentioned on her chest imaging from 2020 and she has multiple pulmonary nodules that have present since 2011. Apparently she had a PET scan one-point with a CT-guided biopsy and was like a bronchoscopic biopsy in 2017. She has had serial CTs of her chest reports stating stability and partially calcified. She has been on supplemental oxygen for many years. She does not use it continuously, only as needed during the daytime but she does wear oxygen at night 2 L. She mainly has shortness of breath with activity, worsened by exposure to heat and humidity as well and has cold windy conditions. She can occasionally hear wheezing when sitting quietly. She denies any chronic cough or sputum production. She has never had pneumonia. 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 She claims to have had asbestos exposure due to pipes that were wrapped in asbestos. Her inhaled therapy consists of triple inhaler. She had Symbicort, Spiriva and Breztri all listed on her medication list. When speaking to the patient, she states she did not use the Symbicort because it required rinsing her mouth after usage. She has been using her Spiriva but she has been using her Breztri like a rescue inhaler. DME: [facility] [employer] 2 Liters DATA: PFT: Review pulmonary function test show mixed moderate restriction and obstruction. Diffusing capacity is normal when corrected for alveolar volume Imaging / Diagnostic Studies: Patient Name: LESLI ROSALES 05/17/[address] CHEST WITH CONTRAST: INDICATION: Follow-up pulmonary nodule. COMPARISON: None. CONTRAST: 75 cc of Isovue-370. The thyroid is normal in appearance. The thoracic soft tissues are grossly normal. There is no axillary lymphadenopathy. There is a partially calcified peripheral right middle lobe nodule as well as two adjacent smaller 3 mm noncalcified peripheral nodules. Likewise a 3 mm nodule seen within the periphery of the left lower lobe, stable The heart is normal in size without pericardial effusion or pericardial thickening. Coronary artery calcifications are present. There are no congestive changes in the pulmonary vasculature. Evaluation of the mediastinum demonstrates no mass nor adenopathy. The visualized portions of the liver, spleen, kidneys, and adrenals areunremarkable. IMPRESSION: Stable bilateral noncalcified pulmonary nodules. The larger partially calcified right sided pulmonary nodule is also stable. Coronary artery disease. Images not available for my review PAST MEDICAL HISTORY Diagnosis Date A-fib (HCC) Chronic obstructive pulmonary disease (COPD) (HCC) Hypertension Lung nodules Lung nodules Psoriasis Psoriatic arthritis (HCC) ALLERGIES No Known Allergies rivaroxaban (XARELTO) 20 mg tablet Take 1 tablet by mouth daily with dinner. atenolol (TENORMIN) 25 mg tablet Take 1 tablet by mouth once daily. famotidine (PEPCID) 20 mg tablet TAKE 1 TABLET BY MOUTH ONCE DAILY hydroCHLOROthiazide 12.5 mg capsule TAKE 1 CAPSULE BY MOUTH ONCE DAILY albuterol HFA (PROVENTIL HFA, VENTOLIN HFA) 90 mcg/actuation inhaler baclofen (LIORESAL) 5 mg tablet Take 5 mg by mouth twice daily. SPIRIVA WITH HANDIHALER 18 mcg inhalation capsule inhale THE CONTENTS OF ONE CAPSULE IN THE HANDIHALER every morning betamethasone valerate 0.1 % cream Apply to affected area once daily. Apply to arms traMADol (ULTRAM) 50 mg tablet Take 50 mg by mouth twice daily. budesonide-formoterol (SYMBICORT) 160-4.5 mcg/actuation inhaler Inhale 2 Puffs as instructed two times a day. Social History Tobacco Use Smoking status: Former Packs/day: 1.00 Years: 17.00 Additional pack years: 0.00 Total pack years: 17.00 Types: Cigarettes Quit date: 09/22/1975 Years since quittin.7 Smokeless tobacco: Never Vaping Use (more content not included)... [facility] 06-16-2023 Note HNO ID: [id number] Author: Emilie Hayes RPFT Service: ? Author Type: Respiratory Therapist Type: Progress Notes Filed: 06/16/2023 3:00 PM Note Text: PULM FUNCTION SMARTBLOCK: Provider: Ruby Prater APRN.OLDER WORKER SPECIALIST Assisting Tech: Emilie Hayes RPFT Spirometry: 1 DLCO: 1 [facility] 06-16-2023 History of Present illness Narrative Images from the original note were not included. . Respiratory Falcon Note Patient name: Lesli Rosales PCP: Giselle Elizondo MD Referring Physician: Ruby Mendez CNP Consultation requested by Ruby Mendez for an opinion regarding transfer of care. My final recommendations will be communicated back to the requesting physician by way of shared Medical record or letter to requesting physician via [place] mail. CC: Lung issues HPI: Lesli Rosales 83 year old obese female former 17 pack year, quitting 1975 with PMH significant for AF, COPD, HTN, psoriasis with arthritis (may be on Skyrizi), pulmonary nodules, previously following with [facility]. Patient decided to obtain her pulmonary care closer to home as lu[facility] Weeks. She had her medical records released to my office but I have yet to receive. Reviewing her EMR states that she has pulmonary fibrosis although this is not mentioned on her chest imaging from 2020 and she has multiple pulmonary nodules that have present since 2011. Apparently she had a PET scan one-point with a CT-guided biopsy and was like a bronchoscopic biopsy in 2016. She has had serial CTs of her chest reports stating stability and partially calcified. She has been on supplemental oxygen for many years. She does not use it continuously, only as needed during the daytime but she does wear oxygen at night 2 L. She mainly has shortness of breath with activity, worsened by exposure to heat and humidity as well and has cold windy conditions. She can occasionally hear wheezing when sitting quietly. She denies any chronic cough or sputum production. She has never had pneumonia. 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 She claims to have had asbestos exposure due to pipes that were wrapped in asbestos. Her inhaled therapy consists of triple inhaler. She had Symbicort, Spiriva and Breztri all listed on her medication list. When speaking to the patient, she states she did not use the Symbicort because it required rinsing her mouth after usage. She has been using her Spiriva but she has been using her Breztri like a rescue inhaler. DME: [facility] [employer] 2 Liters DATA: PFT: Review pulmonary function test show mixed moderate restriction and obstruction. Diffusing capacity is normal when corrected for alveolar volume Imaging / Diagnostic Studies: Patient Name: LESLI ROSALES 05/17/[address] CHEST WITH CONTRAST: INDICATION: Follow-up pulmonary nodule. COMPARISON: None. CONTRAST: 75 cc of Isovue-370. The thyroid is normal in appearance. The thoracic soft tissues are grossly normal. There is no axillary lymphadenopathy. There is a partially calcified peripheral right middle lobe nodule as well as two adjacent smaller 3 mm noncalcified peripheral nodules. Likewise a 3 mm nodule seen within the periphery of the left lower lobe, stable The heart is normal in size without pericardial effusion or pericardial thickening. Coronary artery calcifications are present. There are no congestive changes in the pulmonary vasculature. Evaluation of the mediastinum demonstrates no mass nor adenopathy. The visualized portions of the liver, spleen, kidneys, and adrenals areunremarkable. IMPRESSION: Stable bilateral noncalcified pulmonary nodules. The larger partially calcified right sided pulmonary nodule is also stable. Coronary artery disease. Images not available for my review PAST MEDICAL HISTORY Diagnosis Date A-fib (HCC) Chronic obstructive pulmonary disease (COPD) (HCC) Hypertension Lung nodules Lung nodules Psoriasis Psoriatic arthritis (HCC) ALLERGIES No Known Allergies rivaroxaban (XARELTO) 20 mg tablet Take 1 tablet by mouth daily with dinner. atenolol (TENORMIN) 25 mg tablet Take 1 tablet by mouth once daily. famotidine (PEPCID) 20 mg tablet TAKE 1 TABLET BY MOUTH ONCE DAILY hydroCHLOROthiazide 12.5 mg capsule TAKE 1 CAPSULE BY MOUTH ONCE DAILY albuterol HFA (PROVENTIL HFA, VENTOLIN HFA) 90 mcg/actuation inhaler baclofen (LIORESAL) 5 mg tablet Take 5 mg by mouth twice daily. SPIRIVA WITH HANDIHALER 18 mcg inhalation capsule inhale THE CONTENTS OF ONE CAPSULE IN THE HANDIHALER every morning betamethasone valerate 0.1 % cream Apply to affected area once daily. Apply to arms traMADol (ULTRAM) 50 mg tablet Take 50 mg by mouth twice daily. budesonide-formoterol (SYMBICORT) 160-4.5 mcg/actuation inhaler Inhale 2 Puffs as instructed two times a day. 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 20 lbs since first of the year but patient enrolled in weight loss program HEENT: Denies nasal congestion/sinus symptoms, allergy problems. EYES: No diplopia or blurry vision. CARDIOVASCULAR: No chest pain, palpitations, orthopnea, PND, edema. PULM: See HPI GI: No dysphagia/odynophagia, problematic reflux. Abdominal pain and constipation : Urinary incontinence NEURO: No balance problems, peripheral weakness/paresthesias or numbness of concern. MUSC-SKEL: Psoriatic arthritis PSY: No concerns regarding depression, anxiety INTEGUMENTARY: Psoriasis PHYSICAL EXAMINATION: BP 138/82 Pulse 67 Resp 16 Wt 164 lb (74.4kg) SpO2 92% General Appearance: Obese elderly female, NAD. Skin: Skin color, texture, turgor normal, no suspicious rashes or lesions. Head: Normocephalic, no masses, lesions, tenderness or abnormalities. Eyes: Sclera, conjunctiva normal. Oropharynx: No oral lesions or thrush. Neck: No JVD, no masses, no thyromegaly. Lungs: Not labored, normal to percussion, diffuse dry crackles, no wheezing Chest wall: Mild kyphosis. Heart: Regular rate and rhythm, soft systolic murmur. Extremities: No edema or clubbing. Musculoskeletal: No major joint deformities or synovitis. Neurologic: Alert and oriented, no focal findings. Lymph Nodes: No cervical lymphadenopathy and No supraclavicular lymphadenopathy. Assessment/Plan: 1. Moderate COPD -Reviewed inhaler usage. Explained that Breztri was not a rescue inhaler. She can either continue Symbicort with Spiriva or change to Breztri alone. She is opting for Symbicort with Spiriva. -Sent in a prescription for albuterol rescue inhaler -Request records from previous wedding makeup artist 2. Restrictive lung disease -Crackles on exam and mention of fibrosis but report of last chest CT does not mention reticulations or evidence of fibrosis -Request PACS images of last chest CT 2. Lung nodules -By report, lung nodules have been stable for more than 5 years which would suggest no need for further yearly surveillance -Requested images from [facility] 3. Former cigarette smoker -Former smoker with sequelae of COPD -Patient does not meet criteria for lung cancer screening based on her age and duration of smoking cessation Maru Castellon MD Respiratory [place] documented in this encounter [facility] 06-16-2023 History of Present illness Narrative PULM FUNCTION SMARTBLOCK: Provider: Ruby Prater APRN.OLDER WORKER SPECIALIST Assisting Tech: Emilie Hayes RPFT Spirometry: 1 DLCO: 1 documented in this encounter [facility] 06-16-2023 Miscellaneous Notes Called pt to discuss CT abd results. Informed mass noted in cecum is presumed fecal related. She is going to be starting Miralax today. Advised obtaining colonoscopy due to CT findings which she is agreeable to. Has pulmonary testing scheduled today. She will call GI office back once results are in. If stable from pulmonary standpoint would plan for procedure at [facility] [place]. Fernanda Horne PA-C documented in this encounter [facility] 06-14-2023 Note HNO ID: [id number] Author: Ashly Thomas Tech Service: Radiology Author Type: Technologist Type: Progress Notes Filed: 06/14/2023 11:17 AM Note Text: Radiology Service Progress Note DATE OF SERVICE: June 14, 2023 TIME: 11:16 AM PATIENT IDENTITY VERIFICATION COMPLETED USING TWO (2) STANDARD IDENTIFIERS: Name and Date of confirmed by patient verbally. FALL SCREENING: Has the patient had 2 falls in the last year or 1 fall with injury or currently using an Ambulatory Assistive Device (Walker, Cane, Wheelchair, Crutches, etc.)? No PATIENT GENDER DATA: Female. status: : No status: NO. PATIENT RELEVANT IMPLANT DATA REVIEWED: Not Applicable ALLERGIES: Reviewed and unchanged CONTRAST ALLERGY: NO. EXAM: CT -CONTRAST INDUCED NEPHROPATHY RISK FACTORS: Patient age > 60 years CREATININE: Creatinine Date Value Ref Range Status 05/30/2023 0.63 0.58 - 0.96 mg/dL Final 10/28/2022 0.63 0.58 - 0.96 mg/dL Final 03/21/2021 0.59 0.58 - 0.96 mg/dL Final Estimated Glomerular Filtration Rate Date Value Ref Range Status 05/30/2023 89 >=60 mL/min/1.73m? Final Comment: Estimated Glomerular Filtration Rate (eGFR) is calculated using the 2020 CKD-EPI creatinine equation. This equation utilizes serum creatinine, sex, and age as parameters. The creatinine assay has traceable calibration to isotope dilution-mass spectrometry. Refer to KDIGO guidelines for clinical interpretation. In patients with unstable renal function, e.g. those with acute kidney injury, the eGFR may not accurately reflect actual GFR. eGFR- Date Value Ref Range Status 03/21/2021 >60 Final P.O.C.T. RESULTS: POC done: Yes, See Lab Tab June 14, 2023 TREATMENT: N/A PERIPHERAL IV DATA: Ambulatory: A peripheral IV was started in the Right with a Angio cath: 22 gauge. RADIOLOGY DEPARTMENT: CT; Exam(s) Completed: Abdomen/Pelvis SIGNATURE: Faustina Fermin PATIENT NAME: Lesli Rosales DATE: June 14, 2023 TIME: 11:16 AM [facility] 06-14-2023 Note HNO ID: [id number] Author: Ashly Thomas Tech Service: Radiology Author Type: Technologist Type: Progress Notes Filed: 06/14/2023 11:28 AM Note Text: Radiology Service Progress Note DATE OF SERVICE: June 14, 2023 TIME: 11:27 AM PATIENT IDENTITY VERIFICATION COMPLETED USING TWO (2) STANDARD IDENTIFIERS: Name and Date of confirmed by patient verbally. FALL SCREENING: Has the patient had 2 falls in the last year or 1 fall with injury or currently using an Ambulatory Assistive Device (Walker, Cane, Wheelchair, Crutches, etc.)? No PATIENT GENDER DATA: Female. status: : No status: NO. PATIENT RELEVANT IMPLANT DATA REVIEWED: Yes ALLERGIES: Reviewed and unchanged CONTRAST ALLERGY: NO. EXAM: CT -CONTRAST INDUCED NEPHROPATHY RISK FACTORS: Patient age > 60 years CREATININE: Creatinine Date Value Ref Range Status 05/30/2023 0.63 0.58 - 0.96 mg/dL Final 10/28/2022 0.63 0.58 - 0.96 mg/dL Final 03/21/2021 0.59 0.58 - 0.96 mg/dL Final Estimated Glomerular Filtration Rate Date Value Ref Range Status 05/30/2023 89 >=60 mL/min/1.73m? Final Comment: Estimated Glomerular Filtration Rate (eGFR) is calculated using the 2020 CKD-EPI creatinine equation. This equation utilizes serum creatinine, sex, and age as parameters. The creatinine assay has traceable calibration to isotope dilution-mass spectrometry. Refer to KDIGO guidelines for clinical interpretation. In patients with unstable renal function, e.g. those with acute kidney injury, the eGFR may not accurately reflect actual GFR. eGFR- Date Value Ref Range Status 03/21/2021 >60 Final P.O.C.T. RESULTS: POC done: Yes, See Lab Tab June 14, 2023 TREATMENT: N/A PERIPHERAL IV DATA: Ambulatory: A peripheral IV was started in the Right with a Angio cath: 22 gauge. RADIOLOGY DEPARTMENT: CT; Exam(s) Completed: Abdomen/Pelvis SIGNATURE: Faustina Fermin PATIENT NAME: Lesli Rosales DATE: June 14, 2023 TIME: 11:27 AM [facility] 06-12-2023 Miscellaneous Notes Last appointment: 11/28/22 Next appointment: n/a Pharmacy verified in [facility]. Refill(s) requested: Requested Prescriptions Pending Prescriptions Disp Refills rivaroxaban (XARELTO) 20 mg tablet 90 tablet 3 Sig: Take 1 tablet by mouth daily with dinner. Order(s) pended. Please advise. Anat Hernandez Ma, CMA documented in this encounter [facility] 06-01-2023 Note HNO ID: [id number] Author: Maddie Costa Service: ? Author Type: ? Type: Progress Notes Filed: 06/01/2023 11:19 AM Note Text: Called pt and informed of lab results. Pt indicated understanding. [facility] 05-24-2023 Miscellaneous Notes Had a hard time scheduling the [place] appt. Called patient and gave her number to schedule Orders placed. Please assist in scheduling. Called pt and she stated [place] would be most convenient for her. Please assist pt with scheduling. Sorry that message was sent before I finished it. Dara Barnes, or [place] have providers that might be more convenient for her. Anat Roberts APRN.MARJ There are providers in [place] Patient stated she is looking for a new lung doctor. Wants to know if Dr. Rebollar can recommend someone closer for her. Said her last doctor was at [facility] and she doesn't want to have to drive all the way to [place] anymore. Please advise at [phone]. Or [phone]. documented in this encounter [facility] 05-22-2023 Note HNO ID: [id number] Author: Fernanda Horne PA-C Service: ? Author Type: Physician Geomorphology Teacher Type: Progress Notes Filed: 05/22/2023 12:29 PM Note Text: CHIEF COMPLAINT: Patient presents with: Abdominal cramping: Constipation lasts up to 4 days at a time. HPI: Lesli Rosales is a 83 year old female with PMHx positive for A. Fib, COPD, HTN who presents for Abdominal cramping (Constipation lasts up to 4 days at a time.). Surg hx positive for appendectomy, cholecystectomy, hysterectomy, rectocele repair (2009). Admits to increased abd cramping in the past 3 mos. Bms are every few days, constipated, BRBPR when wiping/straining. Will take Dulcolax/Ex-lax PRN 1x per week to have a BM. Abd pain will improve somewhat with BM. Associated sx of nausea w/o emesis, bloating. Cant remember when last colon was, reports hx of polyps. Has lost 11 lbs unintentionally since sx started. Has CT scheduled 05/25/2023. Unknown family hx, adopted Record Review: [facility] / Outside records reviewed. PAST MEDICAL HISTORY Diagnosis Date A-fib (HCC) Chronic obstructive pulmonary disease (COPD) (HCC) Hypertension Psoriasis PAST SURGICAL HISTORY Procedure Laterality Date APPENDECTOMY BACK SURGERY HX 1984 CHOLECYSTECTOMY HX COLONOSCOPY SCREENING EGD W/O BRSH SPEC VARICIES INJ REPAIR OF RECTOCELE REPAIR UMBILICAL HERNIA 2009 SHX TOTAL SHOULDER REVERSE Right SLING OPER STRES INCONTINENCE UMBILICAL HERNIA REPAIR 5 OR OLDER 1965 VAGINAL HYSTERECTOMY Allergies: ALLERGIES No Known Allergies Medications: atenolol (TENORMIN) 25 mg tablet Take 1 tablet by mouth once daily. carisoprodol (SOMA) 350 mg tablet Take 1 tablet by mouth at bedtime as needed for up to 30 days. famotidine (PEPCID) 20 mg tablet TAKE 1 TABLET BY MOUTH ONCE DAILY hydroCHLOROthiazide 12.5 mg capsule TAKE 1 CAPSULE BY MOUTH ONCE DAILY albuterol HFA (PROVENTIL HFA, VENTOLIN HFA) 90 mcg/actuation inhaler baclofen (LIORESAL) 5 mg tablet Take 5 mg by mouth twice daily. SYMBICORT 160-4.5 mcg/actuation inhaler SPIRIVA WITH HANDIHALER 18 mcg inhalation capsule inhale THE CONTENTS OF ONE CAPSULE IN THE HANDIHALER every morning fluticasone (FLONASE ALLERGY RELIEF) 50 mcg/actuation nasal spray Use 1 [place] in each nostril twice daily. betamethasone valerate 0.1 % cream Apply to affected area once daily. Apply to arms rivaroxaban (XARELTO) 20 mg tablet Take 1 tablet by mouth daily with dinner. traMADol (ULTRAM) 50 mg tablet Take 50 mg by mouth twice daily. ipratropium (ATROVENT) 0.02 % nebulizer solution levalbuterol (XOPENEX) 0.63 mg/3 mL nebulizer solution apremilast (OTEZLA STARTER) 10 mg (4)-20 mg (4)-30 mg(19) Take by mouth as directed. Take 10 mg by mouth in the morning on day 1, THEN 10 mg twice daily on Day 2, THEN 10 mg in the morning and 20 mg in the evening on Day 3, THEN 20 mg twice daily on Day 4, THEN 20 mg in the morning and 30 mg in the evening on Day 5, THEN 30 mg twice daily on Day 6 and thereafter History reviewed. No pertinent family history. Employer And Job Title: None on file Years Of Education Completed: Not specified Marital Status: Social History Tobacco Use Smoking status: Former Packs/day: 1.00 Years: 17.00 Additional pack years: 0.00 Total pack years: 17.00 Types: Cigarettes Quit date: 09/22/1975 Years since quittin.6 Smokeless tobacco: Never Vaping Use Vaping Use: Never used Substance Use Topics Alcohol use: Not Currently Drug use: Never Review of Systems: Review of Systems Constitutional: Positive for fatigue and unexpected weight change. HENT: Positive for hearing loss. Respiratory: Positive for shortness of breath and wheezing. Gastrointestinal: Positive for blood in stool. Change in bowel habits, Gas All other systems reviewed and are negative. Are you taking any blood thinners? Yes, [place] Physical Examination: BP 132/80 Pulse 70 Ht 154.9 cm (5' 1 ) BMI 33.44 kg/m? Physical Exam Constitutional: General: She is not in acute distress. Appearance: Normal appearance. She is normal weight. She is not ill-appearing, toxic-appearing or diaphoretic. HENT: Head: Normocephalic and atraumatic. Nose: Nose normal. Eyes: General: No scleral icterus. Right eye: No discharge. Left eye: No discharge. Extraocular Movements: Extraocular movements intact. Conjunctiva/sclera: Conjunctivae normal. Pupils: Pupils are equal, round, and reactive to light. Cardiovascular: Rate and Rhythm: Normal rate and regular rhythm. Pulses: Normal pulses. Heart sounds: Normal heart sounds. No murmur heard. No friction rub. No gallop. Pulmonary: Effort: No respiratory distress. Breath sounds: Normal breath sounds. No stridor. No wheezing, rhonchi or rales. Chest: Chest wall: No tenderness. Abdominal: General: Abdomen is flat. Bowel sounds are normal. There is distension. Palpations: Abdomen is soft. There is no mass. (more content not included)... [facility] 05-22-2023 Instructions Fernanda Horne PA-C - 05/22/2023 11:54 AM EDT - Drink around 64 oz water daily - Start Miralax daily to induce bowel movement Miralax generally will help produce bowel movement in 1-3 days Fill to top of white section in cap which is marked to indicate the correct dose (17 g) Stir and dissolve in any 8 ounces of non-carbonated beverage (cold, hot or room temperature) then drink If diarrhea occurs, reduce usage to every other day - Call me in 7 days of using Miralax if medication is not working well to regulate bowels documented in this encounter [facility] 05-22-2023 History of Present illness Narrative CHIEF COMPLAINT: Patient presents with: Abdominal cramping: Constipation lasts up to 4 days at a time. HPI: Lesli Rosales is a 83 year old female with PMHx positive for A. Fib, COPD, HTN who presents for Abdominal cramping (Constipation lasts up to 4 days at a time.). Surg hx positive for appendectomy, cholecystectomy, hysterectomy, rectocele repair (2009). Admits to increased abd cramping in the past 3 mos. Bms are every few days, constipated, BRBPR when wiping/straining. Will take Dulcolax/Ex-lax PRN 1x per week to have a BM. Abd pain will improve somewhat with BM. Associated sx of nausea w/o emesis, bloating. Cant remember when last colon was, reports hx of polyps. Has lost 11 lbs unintentionally since sx started. Has CT scheduled 05/25/2023. Unknown family hx, adopted Record Review: [facility] / Outside records reviewed. PAST MEDICAL HISTORY Diagnosis Date A-fib (HCC) Chronic obstructive pulmonary disease (COPD) (HCC) Hypertension Psoriasis PAST SURGICAL HISTORY Procedure Laterality Date APPENDECTOMY BACK SURGERY HX 1984 CHOLECYSTECTOMY HX COLONOSCOPY SCREENING EGD W/O BRSH SPEC VARICIES INJ REPAIR OF RECTOCELE REPAIR UMBILICAL HERNIA 2009 SHX TOTAL SHOULDER REVERSE Right SLING OPER STRES INCONTINENCE UMBILICAL HERNIA REPAIR 5 OR OLDER 1965 VAGINAL HYSTERECTOMY Allergies: ALLERGIES No Known Allergies Medications: atenolol (TENORMIN) 25 mg tablet Take 1 tablet by mouth once daily. carisoprodol (SOMA) 350 mg tablet Take 1 tablet by mouth at bedtime as needed for up to 30 days. famotidine (PEPCID) 20 mg tablet TAKE 1 TABLET BY MOUTH ONCE DAILY hydroCHLOROthiazide 12.5 mg capsule TAKE 1 CAPSULE BY MOUTH ONCE DAILY albuterol HFA (PROVENTIL HFA, VENTOLIN HFA) 90 mcg/actuation inhaler baclofen (LIORESAL) 5 mg tablet Take 5 mg by mouth twice daily. SYMBICORT 160-4.5 mcg/actuation inhaler SPIRIVA WITH HANDIHALER 18 mcg inhalation capsule inhale THE CONTENTS OF ONE CAPSULE IN THE HANDIHALER every morning fluticasone (FLONASE ALLERGY RELIEF) 50 mcg/actuation nasal spray Use 1 [place] in each nostril twice daily. betamethasone valerate 0.1 % cream Apply to affected area once daily. Apply to arms rivaroxaban (XARELTO) 20 mg tablet Take 1 tablet by mouth daily with dinner. traMADol (ULTRAM) 50 mg tablet Take 50 mg by mouth twice daily. ipratropium (ATROVENT) 0.02 % nebulizer solution levalbuterol (XOPENEX) 0.63 mg/3 mL nebulizer solution apremilast (OTEZLA STARTER) 10 mg (4)-20 mg (4)-30 mg(19) Take by mouth as directed. Take 10 mg by mouth in the morning on day 1, THEN 10 mg twice daily on Day 2, THEN 10 mg in the morning and 20 mg in the evening on Day 3, THEN 20 mg twice daily on Day 4, THEN 20 mg in the morning and 30 mg in the evening on Day 5, THEN 30 mg twice daily on Day 6 and thereafter History reviewed. No pertinent family history. Employer And Job Title: None on file Years Of Education Completed: Not specified Marital Status: Social History Tobacco Use Smoking status: Former Packs/day: 1.00 Years: 17.00 Additional pack years: 0.00 Total pack years: 17.00 Types: Cigarettes Quit date: 09/22/1975 Years since quittin.6 Smokeless tobacco: Never Vaping Use Vaping Use: Never used Substance Use Topics Alcohol use: Not Currently Drug use: Never Review of Systems: Review of Systems Constitutional: Positive for fatigue and unexpected weight change. HENT: Positive for hearing loss. Respiratory: Positive for shortness of breath and wheezing. Gastrointestinal: Positive for blood in stool. Change in bowel habits, Gas All other systems reviewed and are negative. Are you taking any blood thinners? Yes, Xarelto Physical Examination: BP 132/80 Pulse 70 Ht 154.9 cm (5' 1 ) BMI 33.44 kg/m Physical Exam Constitutional: General: She is not in acute distress. Appearance: Normal appearance. She is normal weight. She is not ill-appearing, toxic-appearing or diaphoretic. HENT: Head: Normocephalic and atraumatic. Nose: Nose normal. Eyes: General: No scleral icterus. Right eye: No discharge. Left eye: No discharge. Extraocular Movements: Extraocular movements intact. Conjunctiva/sclera: Conjunctivae normal. Pupils: Pupils are equal, round, and reactive to light. Cardiovascular: Rate and Rhythm: Normal rate and regular rhythm. Pulses: Normal pulses. Heart sounds: Normal heart sounds. No murmur heard. No friction rub. No gallop. Pulmonary: Effort: No respiratory distress. Breath sounds: Normal breath sounds. No stridor. No wheezing, rhonchi or rales. Chest: Chest wall: No tenderness. Abdominal: General: Abdomen is flat. Bowel sounds are normal. There is distension. Palpations: Abdomen is soft. There is no mass. Tenderness: There is abdominal tenderness (Moderate TTP generalized abd, worse in RLQ). There is no right CVA tenderness, left CVA tenderness, guarding or rebound. Hernia: A hernia (TTP periumbilical hernia) is present. Musculoskeletal: General: Normal range of motion. Cervical back: Normal range of motion and neck supple. Skin: General: Skin is warm and dry. Neurological: General: No focal deficit present. Mental Status: She is alert and oriented to person, place, and time. Psychiatric: Mood and Affect: Mood normal. Behavior: Behavior normal. Assessment/Plan (K62.5) BRBPR (bright red blood per rectum) (primary encounter diagnosis) (K59.09) Chronic constipation (R63.4) Abnormal weight loss (R14.0) Abdominal distension (gaseous) (K59.09) Other constipation (R11.0) Nausea 1. BRBPR (bright red blood per rectum) - CT ABD/PEL W IVCON; Future - iv contrast (will be provided with radiology test); CT ABD/PEL -Inject, intravenously, once for 1 dose.No IV access, insert saline lock prior to the beginning of sedation, infusion, injection of imaging exam. Discontinue saline lock post exam. If Pt. has a central line or IVAD, may access for administration according to line specific nursing protocol. Once exam is complete flush line and de-access according to line specific nursing protocol in the CT contrast administration guidelines link. Dispense: 1 Each; Refill: 0 - enteric contrast (will be provided with radiology test); For CT ABD/PEL W IVCON Routine order Administer, As Directed One Time Only, via Oral, Rectal, both Oral and Rectal, Enteric Tube, Stoma or Indwelling Catheter, Enteric Contrast as designated per enteric contrast guidelines Dispense: 1 Each; Refill: 0 - CREATININE BLD; Future - Reports labs with PCP 4 weeks ago w/ updated CBC, will try to obtain - Start Miralax full cap daily - Drink plenty of fluids - Obtain CT abd to r/o acute process due to moderate abd pain on exam today, r/o complicated hernia - Consider colonoscopy pending results, pt reports she would be agreeable to this if needed after CT findings 2. Chronic constipation - CT ABD/PEL W IVCON; Future - iv contrast (will be provided with radiology test); CT ABD/PEL -Inject, intravenously, once for 1 dose.No IV access, insert saline lock prior to the beginning of sedation, infusion, injection of imaging exam. Discontinue saline lock post exam. If Pt. has a central line or IVAD, may access for administration according to line specific nursing protocol. Once exam is complete flush line and de-access according to line specific nursing protocol in the CT contrast administration guidelines link. Dispense: 1 Each; Refill: 0 - enteric contrast (will be provided with radiology test); For CT ABD/PEL W IVCON Routine order Administer, As Directed One Time Only, via Oral, Rectal, both Oral and Rectal, Enteric Tube, Stoma or Indwelling Catheter, Enteric Contrast as designated per enteric contrast guidelines Dispense: 1 Each; Refill: 0 - CREATININE BLD; Future 3. Abnormal weight loss - CT ABD/PEL W IVCON; Future - iv contrast (will be provided with radiology test); CT ABD/PEL -Inject, intravenously, once for 1 dose.No IV access, insert saline lock prior to the beginning of sedation, infusion, injection of imaging exam. Discontinue saline lock post exam. If Pt. has a central line or IVAD, may access for administration according to line specific nursing protocol. Once exam is complete flush line and de-access according to line specific nursing protocol in the CT contrast administration guidelines link. Dispense: 1 Each; Refill: 0 - enteric contrast (will be provided with radiology test); For CT ABD/PEL W IVCON Routine order Administer, As Directed One Time Only, via Oral, Rectal, both Oral and Rectal, Enteric Tube, Stoma or Indwelling Catheter, Enteric Contrast as designated per enteric contrast guidelines Dispense: 1 Each; Refill: 0 - CREATININE BLD; Future Recommended to please call office/go to ER if fever, chills, chest pain, SOB, diarrhea, nausea, emesis, worsening abdominal pain, dehydration occurs I spent a total of 20 minutes on the date of the service which included preparing to see the patient, [id number] patient care, completing clinical documentation, obtaining and/or reviewing separately obtained history, performing a medically appropriate examination, counseling and educating the patient/family/caregiver, ordering medications, tests, or procedures, communicating with other HCPs (not separately reported), independently interpreting results (not separately reported), communicating results to the patient/family/caregiver, and care coordination (not separately reported). Fernanda Horne PA-C May 22, 2023 11:56 AM documented in this encounter [facility] 05-17-2023 History of Present illness Narrative Pulmonary Follow-up [address] [place] [id number] Visit type: Established patient Reason for Visit: No chief complaint on file. Patient was seen today via Telehealth by agreement and consent in light of the current COVID-19 pandemic. I used the following Telehealth technology: Audio capability only. Total length of call 15 minutes. The patient was offered and advised video for a more comprehensive evaluation, but the patient declined or was unable to use video. Patient location: Home. This patient encounter is appropriate and reasonable under the circumstances given the patient's particular presentation at this time. The patient has been advised of the potential risks and limitations of this mode of treatment (including but not limited to the absence of in-person examination) and has agreed to be treated in a remote fashion in spite of them. Any and all of the patient's/patient's family's questions on this issue have been answered and I have made no promises or guarantees to the patient. The patient has also been advised to contact this office for worsening conditions or problems, and seek emergency medical treatment and/or call 911 if the patient deems either necessary. The patient stated that they are currently in the [facility]. If the patient is a minor, permission has been obtained by the parent or guardian for the patient to receive medical care at this visit. History of Present Illness: LAWRENCE Rosales is a 83 y.o. female patient with significant PMH of pulm fibrosis, COPD, GERD, HTN, and afib being seen for follow-up. PMH of lung nodules since 2011 Hx asbestos exposure- on methotrexate for psoriatic arthritis (PET 11/15/12, biopsy 2012 and agian 06/28/17). Lung nodules remain stable for > than 5 years, she had repeat CT in April 2021, / ED visit for R flank pain and imaging suggesting increase in nodules. On repeat CT nodules appear unchanged from last year. She was last seen on 10/20/22 and was doing well. She is still c/o exertional dyspnea. Gets winded walking to her mailbox, especially if it is windy outside. She does have a pulse ox at home but does not use it. Remains on supplemental O2 at 2 L/min as needed throughout the day. She does cough intermittently, worse if she chokes with eating. She does occasionally expectorate large amount of clear sputum. Some difficulty expectorating sputum. She does wheeze intermittently when she get very winded. Report compliance with Symbicort and Spiriva. Uses her nebulizer once a day. Uses her Albuterol once a day as well. She now returns for interval follow-up. She feels that her breathing is getting slightly worse over the past 6 months. Feels she gets short of breath more easily then before. She gets winded walking to her mailbox or mowing the lawn. Remain on supplemental O2 at 2L/min, SpO2 has been 91% on room air. Denies coughing. States that dysphagia has improved, has not had trouble choking when eats. Denies wheezing. She has lost 20 lbs in the past year with dietary program. Compliant with Spiriva and Spiriva. Uses her Albuterol once a day. Uses her nebulizer every morning. Home medications: Symbicort, Spiriva, ipratropium nebs CT Lung Screening/CT Chest-- 05/17/21 stable lung nodules > 5 years Esophogram 10/14/22: Multiple spot radiographs of the esophagus were obtained using a double contrast technique with thick barium solution, effervescent granules as well as a 2 barium tablets. Sequential images were acquired over the region of interest with thin barium as well. There was approximately 3 minutes and 06 sec of fluoroscopy time. The esophagus is widely patent. There is free flow of contrast from the esophagus down to the stomach with coordinated motility. There are no strictures appreciated. There is no obvious mucosal irregularity. The barium tablet passed freely with 1-2 sips of liquid. An additional barium tablet was administered and swallowed without difficulty. Incidental calcification of the aortic arch is noted. Shoulder arthroplasty is also present. PFTs--2017 Impression moderately severe large airways obstruction with bronchodilator response. Reduced diffusion capacity consistent with COPD. Normal lung volumes Tobacco- cigarettes 17 pyh quit 1975 MMRC Dyspnea Scale: Grade Description of Breathlessness 0 I only get breathless with strenuous exercise. 1 I get short of breath when hurrying on level ground or walking up a slight hill. 2 On level ground, I walk slower than people of the same age because of breathlessness, or have to stop for breath when walking at my own pace. 3 I stop for breath after walking about 100 yards or after a few minutes on level ground. 4 I am too breathless to leave the house or I am breathless when dressing. Past Medical History: Past Medical History: Diagnosis Date Arthritis Atrial fibrillation (CMS/HCC) ([facility]) Chronic obstructive pulmonary disease ([facility]) 08/24/2017 GERD (gastroesophageal reflux disease) Hypertension Osteoarthritis Psoriasis Social History: Social History Socioeconomic History Marital status: Tobacco Use Smoking status: Former Packs/day: 1.00 Years: 17.00 Additional pack years: 0.00 Total pack years: 17.00 Types: Cigarettes Quit date: 05/29/1976 Years since quittin.9 Smokeless tobacco: Never Vaping Use Vaping Use: Never used Substance and Sexual Activity Alcohol use: No Drug use: No Family History: Family History Adopted: Yes Problem Relation Name Age of Onset Other (30213) Mother ROS: Review of Systems Constitutional: Negative for chills, fatigue and fever. HENT: Negative for trouble swallowing. Respiratory: Positive for cough and shortness of breath. Negative for chest tightness and wheezing. Cardiovascular: Negative for chest pain, palpitations and leg swelling. Gastrointestinal: Negative for diarrhea, nausea and vomiting. Psychiatric/Behavioral: Negative for sleep disturbance. All other systems reviewed and are negative. Medications: @MEDCMED@ Allergies: No Known Allergies Vital Signs: There were no vitals taken for this visit. Physical Exam: Physical Exam Pulmonary: Comments: No conversational dyspnea. No audible coughing or wheezing. Musculoskeletal: Right lower leg: No edema. Left lower leg: No edema. Neurological: Mental Status: She is alert and oriented to person, place, and time. Mental status is at baseline. Psychiatric: Mood and Affect: Mood normal. Speech: Speech normal. Behavior: Behavior normal. Thought Content: Thought content normal. Impression/Plan: Diagnosis Plan 1. Chronic obstructive pulmonary disease, unspecified COPD type ([facility]) Feels symptoms have been gradually progressing over the past several months, not in acute exacerbation. Repeat PFT's reviewed with the patient, obstruction increased, DLCO reduced from previous testing. - Continue Symbicort, Spiriva, Duonebs, Albuterol MDI PRN - Recheck CT chest wo IV contrast - Would benefit from referral to pulmonary rehab, but patient declines, states that she does not have time and cannot afford co pay. 2. Dysphagia, unspecified type Improved, Swallow study was normal. Evaluated by Dr. Blancas, was scheduled for EGD but this was cancelled. Will reach out to oDr. Blancas to see if he wants to schedule follow-up. 3. Lung nodule Stable >5 years, no further follow-up needed. 4. 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 Repeat imaging ordered at last visit due to progression of SOB, change in PFT's, but has not been done. Will order at this time. - CT chest wo IV contrast Diagnosis Plan 1. Chronic obstructive pulmonary disease, unspecified COPD type (HCC) Feels symptoms have been gradually progressing over the past several months. Repeat PFT's reviewed with the patient, obstruction increased, DLCO reduced from previous testing. - Continue Spiriva, Symbicort, Duonebs, Albuterol MDI - Trial of guaiFENesin (Mucinex) 600 MG 12 hr tablet 2. Dysphagia, unspecified type Swallow study was normal. Still c/o frequent choking with eating and drinking. Will refer to General surgery for evaluation, possible EGD. Ambulatory referral to General Surgery No follow-ups on file. On this date, 12/10/2020 I have spent 35 minutes reviewing previous notes, test results and face to face with the patient discussing the diagnosis and importance of compliance with the treatment plan as well as documenting on the day of the visit. documented in this encounter [facility] 03-24-2023 Miscellaneous Notes Patient picked up medication this morning. The following approved medication requests have been transmitted electronically. Requested Prescriptions Signed Prescriptions Disp Refills carisoprodol (SOMA) 350 mg tablet 30 tablet 0 Sig: Take 1 tablet by mouth at bedtime as needed for up to 30 days. Authorizing Provider: GISELLE ELIZONDO MD Pharmacy verified in Epic Patient has been identified by name and date of : Yes Patient aware RX will be sent to pharmacy. No need to notify patient. Patient phones for refill(s): Requested Prescriptions Pending Prescriptions Disp Refills carisoprodol (SOMA) 350 mg tablet 30 tablet 0 Sig: Take 1 tablet by mouth at bedtime as needed for up to 30 days. Date of last office visit : 11/28/2022 Date of next office visit : Visit date not found Last 2 Encounter Wt Readings: Date: Wt: 11/28/2022 80.3 kg (177 lb) 07/11/2022 83 kg (183 lb) Not applicable Please advise. Anju Redman LPN Lesli Rosales is calling Giselle Elizondo MD today requesting a refill on medication . carisoprodol (SOMA) 350 mg tablet Please send to [facility] documented in this encounter [facility] 02-14-2023 Miscellaneous Notes The following approved medication requests have been transmitted electronically. Requested Prescriptions Signed Prescriptions Disp Refills carisoprodol (SOMA) 350 mg tablet 30 tablet 0 Sig: Take 1 tablet by mouth at bedtime as needed for up to 30 days. Authorizing Provider: GISELLE ELIZONDO MD Patient calling for a refill for Carisoprodol 350 mg. Med not in current refill list. documented in this encounter [facility] 02-10-2023 Miscellaneous Notes The following approved medication requests have been transmitted electronically. Requested Prescriptions Signed Prescriptions Disp Refills famotidine (PEPCID) 20 mg tablet 100 tablet 2 Sig: TAKE 1 TABLET BY MOUTH ONCE DAILY Authorizing Provider: GISELLE ELIZONDO MD Pharmacy verified in Epic Patient has been identified by name and date of : Yes Patient aware RX will be sent to pharmacy. No need to notify patient. Pharmacy phones for refill(s): Requested Prescriptions Pending Prescriptions Disp Refills famotidine (PEPCID) 20 mg tablet [Pharmacy Med Name: Famotidine 20 MG Oral Tablet] 100 tablet 2 Sig: TAKE 1 TABLET BY MOUTH ONCE DAILY Date of last office visit : 11/28/2022 Date of next office visit : Visit date not found Last 2 Encounter Wt Readings: Date: Wt: 11/28/2022 80.3 kg (177 lb) 07/11/2022 83 kg (183 lb) Not applicable Please advise. Anuj Redman LPN documented in this encounter [facility] 01-05-2023 Note [facility] pre-registrati on was calling to see if patient is still supposed to have her procedure on 01/11. Patient had called them to pre-register and it doesn't look like it has been cancelled but patient said she received a call from the clinical staff that it was cancelled. I called the back line but they were out to lunch. Said to send a TE to Berenice. [facility] 01-05-2023 Telephone encounter Note Pt is canceled. Dr Blancas is out next week. I am waiting on new date/time until I find availability that works between Dr Blancas's surgery [facility] 01-05-2023 Miscellaneous Notes Pt is canceled. Dr Blancas is out next week. I am waiting on new date/time until I find availability that works between Dr Blancas's surgery [facility] pre-registration was calling to see if patient is still supposed to have her procedure on 01/11. Patient had called them to pre-register and it doesn't look like it has been cancelled but patient said she received a call from the clinical staff that it was cancelled. I called the back line but they were out to lunch. Said to send a TE to Berenice. documented in this encounter [facility] 01-05-2023 Telephone encounter Note [facility] pre-registration was calling to see if patient is still supposed to have her procedure on 01/11. Patient had called them to pre-register and it doesn't look like it has been cancelled but patient said she received a call from the clinical staff that it was cancelled. I called the back line but they were out to lunch. Said to send a TE to Berenice. [facility] 12-30-2022 Miscellaneous Notes Received 12/30/2022 from [facility]. Placed in provider's inbox for review. Route to [place] for scanning. documented in this encounter [facility] 12-28-2022 Miscellaneous Notes Pharmacy verified in [facility] Patient has been identified by name and date of : Yes Patient aware RX will be sent to pharmacy. No need to notify patient. Patient phones for refill(s): Requested Prescriptions Pending Prescriptions Disp Refills carisoprodol (SOMA) 350 mg tablet 30 tablet 0 Sig: Take 1 tablet by mouth at bedtime as needed for up to 30 days. Date of last office visit : 11/28/2022 Date of next office visit : Visit date not found Last 2 Encounter Wt Readings: Date: Wt: 11/28/2022 80.3 kg (177 lb) 07/11/2022 83 kg (183 lb) Not applicable Please advise. Anju Redman LPN Patient has been identified by name and date of : Yes Requested Prescriptions Pending Prescriptions Disp Refills carisoprodol (SOMA) 350 mg tablet 30 tablet 0 Sig: Take 1 tablet by mouth at bedtime as needed for up to 30 days. RX INSTRUCTIONS: Patient aware RX will be sent to pharmacy. No need to notify patient. Zina Huffman documented in this encounter [facility] 12-27-2022 Miscellaneous Notes Last appointment: 11-28-22 Next appointment: na Pharmacy verified in [facility]. Refill(s) requested: Requested Prescriptions Pending Prescriptions Disp Refills hydroCHLOROthiazide 12.5 mg capsule [Pharmacy Med Name: hydroCHLOROthiazide 12.5 MG Oral Capsule] 90 capsule 3 Sig: TAKE 1 CAPSULE BY MOUTH ONCE DAILY Order(s) pended. Please advise. Zulma Senior MA, GASTROINTESTINAL TECHNICIAN documented in this encounter [facility] 12-16-2022 Telephone encounter Note Pt scheduled 01/11/23 at 12:00, 11:00 arrival Pt aware she needs to speak to her ordering physician in regards to her blood thinner. [facility] 12-16-2022 Miscellaneous Notes Pt scheduled 01/11/23 at 12:00, 11:00 arrival Pt aware she needs to speak to her ordering physician in regards to her blood thinner. Spoke to patient. She was at [facility] and will call me back. documented in this encounter [facility] 12-15-2022 Telephone encounter Note Spoke to patient. She was at [facility] and will call me back. [facility] 11-28-2022 Note HNO ID: [id number] Author: Giselle Elizondo MD Service: ? Author Type: Physician Type: Progress Notes Filed: 11/28/2022 4:57 PM Note Text: CHIEF COMPLAINT Patient presents with: 6 Month Exam HISTORY OF PRESENT ILLNESS Lesli Rosales is a 82 year old female who presents here today for 6 month follow up. I last saw this patient on 07/05/2022. Right Shoulder Replacement She had a right shoulder replacement and the bone is eroding around it Her orthopedist is sending her [facility] to resolve the issue Ankle Edema Her socks leave a dent in the skin, no matter how tight they are She does not feel like she is retaining fluid and is on diuretic. She has had 23 lbs of intentional weight loss in the past two years Low potassium Potassium was low on recent labs Patient was provided a list of high potassium foods Back Pain Psoriatic arthritis. History of back fusion in 1984 with residual pain She tolerates the pain. Has baclofen for spasm. The is on Otezla Asthma/ COPD She follows up with pulmonology for asthma management She is compliant with her current asthma regimen Reports some wheezing today, she is on her inhalers. A fib She is on Xarelto . Stable , Health Maintenance Due for pneumonia immunization Due for tetanus immunization Labs reviewed. Past medical history, appointments, medications, allergies reviewed. REVIEW OF SYSTEMS Pertinent positives/ negatives: General: Feels well, no fever, no chills, +weight decreasing. HEENT: No sinus congestion, earache, sore throat. Cardiac: No chest pain, palpitations Resp: (+) Wheeze, No cough, shortness of breath GI: No reflux symptoms, food intolerance, bowel changes. : No urinary frequency, dysuria. MS: (+) Shoulder pain PAST MEDICAL HISTORY PAST MEDICAL HISTORY Diagnosis Date A-fib (HCC) Chronic obstructive pulmonary disease (COPD) (HCC) Hypertension Psoriasis PHYSICAL EXAMINATION BP 129/68 Pulse 68 Ht 154.9 cm (5' 1 ) Wt 80.3 kg (177 lb) SpO2 92% BMI 33.44 kg/m? General: Alert, well developed, well nourished, no distress, pleasant and cooperative. Heart: Regular rate and rhythm. Normal S1 and S2. No murmurs, rubs, or gallops. Lungs: (+) Wheezes, Clear to auscultation bilaterally. No respiratory distress. No rales or rhonchi. Extremities: Feet/ankles with faint trace edema, posterior tibial pulses full and symmetrical. Arthritic changes. Data Reviewed Component Latest Ref Rng AND Units 10/28/2022 11/03/2022 11/21/2022 WBC 4.0 - 11.0 K/uL 9.42 10.8 RBC 4.2 - 5.4 M/uL 5.08 5.25 HGB 12 - 16 g/dL 16.4 (A) HCT 33 - 42 % 52.2 (A) MCV 80 - 100 fL 100.0 99.4 MCH 27 - 34 pG 30.9 31.2 MCHC 32 - 36 % 30.9 31.4 (A) RDW 11.5 - 14.5 % 13.3 RDW-SD 49.8 Platelet 150 - 400 k/uL 256 MPV 7.3 - 11.1 % 10.6 10.7 Neut% 69.9 LYMPH % 20 - 30 % 20.7 [place]% 7.5 Eosin% 0.9 Baso% 0.6 Immature Gran % % 0.400 C REACTIVE PROTEIN, HIGH SENSITIVITY, CSF 10.90 SED RATE BY MODIFIED WESTEGREN MANUAL 5 Protein, Total 6.3 - 8.0 g/dL 6.7 Albumin 3.9 - 4.9 g/dL 3.6 (L) Calcium 8.5 - 10.2 mg/dL 9.3 Bilirubin, Total 0.2 - 1.3 mg/dL 0.6 Alkaline Phosphatase 34 - 123 U/L 91 AST 13 - 35 U/L 17 ALT 7 - 38 U/L 10 Glucose 74 - 99 mg/dL 132 (H) BUN 7 - 21 mg/dL 17 Creatinine 0.58 - 0.96 mg/dL 0.63 Sodium 136 - 144 mmol/L 141 Potassium 3.7 - 5.1 mmol/L 3.6 (L) Chloride 97 - 105 mmol/L 101 CO2 22 - 30 mmol/L 36 (H) Anion Gap 9 - 18 mmol/L 4 (L) eGFR >=60 mL/min/1.73mA? 89 Hemoglobin 11.5 - 15.5 g/dL 15.7 (H) Hematocrit 36.0 - 46.0 % 50.8 (H) RDW-CV 11.5 - 15.0 % 13.3 Platelet Count 150 - 400 k/uL 225 Cholesterol, Total <200 mg/dL 173 Triglyceride <150 mg/dL 113 HDL Cholesterol >39 mg/dL 55 Non HDL Cholesterol <130 mg/dL 118 Fasting Time hrs 12 VLDL Cholesterol <30 mg/dL 23 TC:HDL Ratio <5.10 3.15 LDL Cholesterol <100 mg/dL 95 LDL:HDL Ratio <2.54 1.73 Hemoglobin A1C 4.3 - 5.6 % 5.7 (H) Estimated Average Glucose mg/dL 117 TSH 0.270 - 4.200 mIU/L 1.210 CT SHOULDER WO IVCON RT 07/10/2021 Impression: Comminuted impacted fracture of the right humeral head and neck She shows me images from her ortho showing resorption Assessment/Plan (Z96.611) Status post shoulder replacement, right (primary encounter diagnosis) (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 Requested Prescriptions No prescriptions requested or ordered in this encounter RTO: 6 Months Scribe Attestation: By signing my name below, I, Chrissy Junior, attest that this documentation has been prepared under the direction and in the presence of Giselle Elizondo M.D. Electronically Signed: Carlos Burnham. November 28, 2022 11:03 AM Provider Attestation: I, Giselle Elizondo MD, per (more content not included)... [facility] 11-28-2022 History of Present illness Narrative CHIEF COMPLAINT Patient presents with: 6 Month Exam HISTORY OF PRESENT ILLNESS Lesli Rosales is a 82 year old female who presents here today for 6 month follow up. I last saw this patient on 07/05/2022. Right Shoulder Replacement She had a right shoulder replacement and the bone is eroding around it Her orthopedist is sending her [facility] to resolve the issue Ankle Edema Her socks leave a dent in the skin, no matter how tight they are She does not feel like she is retaining fluid and is on diuretic. She has had 23 lbs of intentional weight loss in the past two years Low potassium Potassium was low on recent labs Patient was provided a list of high potassium foods Back Pain Psoriatic arthritis. History of back fusion in 1984 with residual pain She tolerates the pain. Has baclofen for spasm. The is on Otezla Asthma/ COPD She follows up with pulmonology for asthma management She is compliant with her current asthma regimen Reports some wheezing today, she is on her inhalers. A fib She is on Xarelto . Stable , Health Maintenance Due for pneumonia immunization Due for tetanus immunization Labs reviewed. Past medical history, appointments, medications, allergies reviewed. REVIEW OF SYSTEMS Pertinent positives/ negatives: General: Feels well, no fever, no chills, +weight decreasing. HEENT: No sinus congestion, earache, sore throat. Cardiac: No chest pain, palpitations Resp: (+) Wheeze, No cough, shortness of breath GI: No reflux symptoms, food intolerance, bowel changes. : No urinary frequency, dysuria. MS: (+) Shoulder pain PAST MEDICAL HISTORY PAST MEDICAL HISTORY Diagnosis Date A-fib (HCC) Chronic obstructive pulmonary disease (COPD) (HCC) Hypertension Psoriasis PHYSICAL EXAMINATION BP 129/68 Pulse 68 Ht 154.9 cm (5' 1 ) Wt 80.3 kg (177 lb) SpO2 92% BMI 33.44 kg/m General: Alert, well developed, well nourished, no distress, pleasant and cooperative. Heart: Regular rate and rhythm. Normal S1 and S2. No murmurs, rubs, or gallops. Lungs: (+) Wheezes, Clear to auscultation bilaterally. No respiratory distress. No rales or rhonchi. Extremities: Feet/ankles with faint trace edema, posterior tibial pulses full and symmetrical. Arthritic changes. Data Reviewed Component Latest Ref Rng & Units 10/28/2022 11/03/2022 11/21/2022 WBC 4.0 - 11.0 K/uL 9.42 10.8 RBC 4.2 - 5.4 M/uL 5.08 5.25 HGB 12 - 16 g/dL 16.4 (A) HCT 33 - 42 % 52.2 (A) MCV 80 - 100 fL 100.0 99.4 MCH 27 - 34 pG 30.9 31.2 MCHC 32 - 36 % 30.9 31.4 (A) RDW 11.5 - 14.5 % 13.3 RDW-SD 49.8 Platelet 150 - 400 k/uL 256 MPV 7.3 - 11.1 % 10.6 10.7 Neut% 69.9 LYMPH % 20 - 30 % 20.7 [place]% 7.5 Eosin% 0.9 Baso% 0.6 Immature Gran % % 0.400 C REACTIVE PROTEIN, HIGH SENSITIVITY, CSF 10.90 SED RATE BY MODIFIED WESTEGREN MANUAL 5 Protein, Total 6.3 - 8.0 g/dL 6.7 Albumin 3.9 - 4.9 g/dL 3.6 (L) Calcium 8.5 - 10.2 mg/dL 9.3 Bilirubin, Total 0.2 - 1.3 mg/dL 0.6 Alkaline Phosphatase 34 - 123 U/L 91 AST 13 - 35 U/L 17 ALT 7 - 38 U/L 10 Glucose 74 - 99 mg/dL 132 (H) BUN 7 - 21 mg/dL 17 Creatinine 0.58 - 0.96 mg/dL 0.63 Sodium 136 - 144 mmol/L 141 Potassium 3.7 - 5.1 mmol/L 3.6 (L) Chloride 97 - 105 mmol/L 101 CO2 22 - 30 mmol/L 36 (H) Anion Gap 9 - 18 mmol/L 4 (L) eGFR >=60 mL/min/1.73m 89 Hemoglobin 11.5 - 15.5 g/dL 15.7 (H) Hematocrit 36.0 - 46.0 % 50.8 (H) RDW-CV 11.5 - 15.0 % 13.3 Platelet Count 150 - 400 k/uL 225 Cholesterol, Total <200 mg/dL 173 Triglyceride <150 mg/dL 113 HDL Cholesterol >39 mg/dL 55 Non HDL Cholesterol <130 mg/dL 118 Fasting Time hrs 12 VLDL Cholesterol <30 mg/dL 23 TC:HDL Ratio <5.10 3.15 LDL Cholesterol <100 mg/dL 95 LDL:HDL Ratio <2.54 1.73 Hemoglobin A1C 4.3 - 5.6 % 5.7 (H) Estimated Average Glucose mg/dL 117 TSH 0.270 - 4.200 mIU/L 1.210 CT SHOULDER WO IVCON RT 07/10/2021 Impression: Comminuted impacted fracture of the right humeral head and neck She shows me images from her ortho showing resorption Assessment/Plan (Z96.611) Status post shoulder replacement, right (primary encounter diagnosis) (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 Requested Prescriptions No prescriptions requested or ordered in this encounter RTO: 6 Months Scribe Attestation: By signing my name below, I, Chrissy Junior, attest that this documentation has been prepared under the direction and in the presence of Giselle Elizondo M.D. Electronically Signed: Carlos Burnham. November 28, 2022 11:03 AM Provider Attestation: IGiselle MD, personally performed the services described in this documentation. All medical record entries made by the scribe were at my direction and in my presence. I have reviewed the chart and discharge instructions (if applicable) and agree that the record reflects my personal performance and is accurate and complete. Electronically Signed: Giselle Elizondo MD November 28, 2022 4:21 PM documented in this encounter [facility] 11-22-2022 Miscellaneous Notes Patient verbalized understanding. Ms rosales The red blood count is a little high as before. Potassium mildly low, otherwise electrolytes/ kidney function OK . Hba1c is in non diabetes range. Lipid profile shows well controlled LDL bad cholesterol Increase on potassium rich foods. Giselle Elizondo MD documented in this encounter [facility] 11-16-2022 Note [employer] OLOGY MODIFIED BARIUM SWALLOW STUDY Patient Name: Lesli Rosales : 1940 Today's Date: 11/16/2022 Visit Info / [facility] General Information Radiologist: Radha Type of Study: Initial MBS Current Diet Solid Consistency: Regular Current Diet Liquid Consistency: Thin Patient complaints: coughing and globus sensation Referring Diagnosis: dysphagia Consistencies Administered: Reg solid, Dysphagia Pureed (Dysphagia I), Thin cup Procedure Method: Consecutive swallow, Cup, Spoon Patient Position: Lateral Patient Degrees: 90 Patient was referred for a to assess the efficiency of her swallow function, rule out aspiration and make recommendations regarding safe dietary consistencies, effective compensatory strategies, and safe eating environment. Past Medical History: Diagnosis Date Arthritis Atrial fibrillation (CMS/HCC) (HCC) Chronic obstructive pulmonary disease (HCC) 08/24/2017 GERD (gastroesophageal reflux disease) Hypertension Osteoarthritis Psoriasis Past Surgical History: Procedure Laterality Date ABDOMINAL SURGERY bladder bowel all dropped APPENDECTOMY BLADDER SUSPENSION BRONCHOSCOPY (HISTORICAL) 06/28/2017 Bronch ENB CHOLECYSTECTOMY COLONOSCOPY FINGER SURGERY HERNIA REPAIR 1959's umbilical SHOULDER SURGERY Right SPINE SURGERY 1984 TOTAL ABDOMINAL HYSTERECTOMY UPPER GASTROINTESTINAL ENDOSCOPY Subjective General Chart Reviewed: Yes Subjective Subjective: Pt stated she has been coughing with liquids and solids for a couple of years now. She notices that if she tips her head up while drinking coughing occurs more often. Pt with hx of hiatal hernia and had her esophagus stretched a long time ago. Pt has COPD. Behavior/Cognition Behavior/Cognition: Alert, Cooperative, Pleasant mood Assessment Oral Preparation / Oral Phase: Oral Phase: Pt with functional oral phase of the swallow. For all consistencies administered, pt with timely mastication, bolus formatio and AP transit. Limited amounts of oral residues after swallow. Pharyngeal Phase: Pharyngeal: Pt with functional pharyngeal phase of the swallow. For all trials, pt with adequate contact between base of tongue and pharyngeal wall. There is spillage to valleculae before initiation of the swallow. With drinks of thin liquids, pt does have flash penetration/coating of the back of the epiglottis, but liquids do not penetrate the vocal cords. Minimal residues noted in valleculae and piriforms after swallow. No vocal cord penetration or aspiration during evaluation. Cervical Esophageal Phase: Upper Esophageal Screen Esophageal Screen: WFL (The length of the esophagues is visualized with no stasis noted. Full clearance is achieved.) Impression Pt with functional oropharyngeal swallowing pattern. Recommend continuation of regular diet with thin liquids. No need for ongoing management with speech therapy. Thank you for this referral. Plan & Recommendations Recommendations/Treatment: Recommendations/Treat Requires AIRPORT REPRESENTATIVE Intervention: No D/C Recommendations: No follow up therapy recommended post discharge Solid consistency: Regular Liquid consistency: Thin Liquid administration via: Spoon, Cup Medication administration: Meds in puree Supervision: Independent Compensatory Swallowing Strategies : Small bites/sips,Swallow 2 times per bite/sip Education Given: diet recommendations, discussed menu selection options such as increasing moisture in foods. Education Response: Verbalizes understanding Prognosis: Prognosis Prognosis for safe diet advancement: excellent Barriers to reach goals: age, severity of dysphagia Individuals consulted Consulted and agree with results and recommendations: Patient The patient was educated regarding the general results and recommendations of this evaluation. Therapy Time AIRPORT REPRESENTATIVE Individual Minutes Time In: 1300 Time Out: 1325 Minutes: 25 DALILA Rascon [facility] 11-16-2022 Note Patients modified ba rium swallow is normal. If she'd like to proceed with further evaluation, she will need set up for EGD & manometry. Please let her know and schedule her if she'd like to proceed - she wanted to hold off. Will need f/u once these are completed as well, thanks [facility] 11-16-2022 Procedure note Images from the original note were not included. SPEECH LANGUAGE PATHOLOGY MODIFIED BARIUM SWALLOW STUDY Patient Name: Lesli Rosales : 1940 Today's Date: 11/16/2022 Visit Info / [facility] General Information Radiologist: Radha Type of Study: Initial MBS Current Diet Solid Consistency: Regular Current Diet Liquid Consistency: Thin Patient complaints: coughing and globus sensation Referring Diagnosis: dysphagia Consistencies Administered: Reg solid, Dysphagia Pureed (Dysphagia I), Thin cup Procedure Method: Consecutive swallow, Cup, Spoon Patient Position: Lateral Patient Degrees: 90 Patient was referred for a to assess the efficiency of her swallow function, rule out aspiration and make recommendations regarding safe dietary consistencies, effective compensatory strategies, and safe eating environment. Past Medical History: Diagnosis Date Arthritis Atrial fibrillation (CMS/HCC) (HCC) Chronic obstructive pulmonary disease (HCC) 08/24/2017 GERD (gastroesophageal reflux disease) Hypertension Osteoarthritis Psoriasis Past Surgical History: Procedure Laterality Date ABDOMINAL SURGERY bladder bowel all dropped APPENDECTOMY BLADDER SUSPENSION BRONCHOSCOPY (HISTORICAL) 06/28/2017 Bronch ENB CHOLECYSTECTOMY COLONOSCOPY FINGER SURGERY HERNIA REPAIR 1960's umbilical SHOULDER SURGERY Right SPINE SURGERY 1984 TOTAL ABDOMINAL HYSTERECTOMY UPPER GASTROINTESTINAL ENDOSCOPY Subjective General Chart Reviewed: Yes Subjective Subjective: Pt stated she has been coughing with liquids and solids for a couple of years now. She notices that if she tips her head up while drinking coughing occurs more often. Pt with hx of hiatal hernia and had her esophagus stretched a long time ago. Pt has COPD. Behavior/Cognition Behavior/Cognition: Alert, Cooperative, Pleasant mood Assessment Oral Preparation / Oral Phase: Oral Phase: Pt with functional oral phase of the swallow. For all consistencies administered, pt with timely mastication, bolus formatio and AP transit. Limited amounts of oral residues after swallow. Pharyngeal Phase: Pharyngeal: Pt with functional pharyngeal phase of the swallow. For all trials, pt with adequate contact between base of tongue and pharyngeal wall. There is spillage to valleculae before initiation of the swallow. With drinks of thin liquids, pt does have flash penetration/coating of the back of the epiglottis, but liquids do not penetrate the vocal cords. Minimal residues noted in valleculae and piriforms after swallow. No vocal cord penetration or aspiration during evaluation. Cervical Esophageal Phase: Upper Esophageal Screen Esophageal Screen: WFL (The length of the esophagues is visualized with no stasis noted. Full clearance is achieved.) Impression Pt with functional oropharyngeal swallowing pattern. Recommend continuation of regular diet with thin liquids. No need for ongoing management with speech therapy. Thank you for this referral. Plan & Recommendations Recommendations/Treatment: Recommendations/Treat Requires AIRPORT REPRESENTATIVE Intervention: No D/C Recommendations: No follow up therapy recommended post discharge Solid consistency: Regular Liquid consistency: Thin Liquid administration via: Spoon, Cup Medication administration: Meds in puree Supervision: Independent Compensatory Swallowing Strategies : Small bites/sips,Swallow 2 times per bite/sip Education Given: diet recommendations, discussed menu selection options such as increasing moisture in foods. Education Response: Verbalizes understanding Prognosis: Prognosis Prognosis for safe diet advancement: excellent Barriers to reach goals: age, severity of dysphagia Individuals consulted Consulted and agree with results and recommendations: Patient The patient was educated regarding the general results and recommendations of this evaluation. Therapy Time AIRPORT REPRESENTATIVE Individual Minutes Time In: 1300 Time Out: 1325 Minutes: 25 DALILA Rascon [facility] 11-16-2022 Procedure note Images from the original note were not included. SPEECH LANGUAGE PATHOLOGY MODIFIED BARIUM SWALLOW STUDY Patient Name: Lesli Rosales : 1940 Today's Date: 11/16/2022 Visit Info / [facility] General Information Radiologist: Radha Type of Study: Initial MBS Current Diet Solid Consistency: Regular Current Diet Liquid Consistency: Thin Patient complaints: coughing and globus sensation Referring Diagnosis: dysphagia Consistencies Administered: Reg solid, Dysphagia Pureed (Dysphagia I), Thin cup Procedure Method: Consecutive swallow, Cup, Spoon Patient Position: Lateral Patient Degrees: 90 Patient was referred for a to assess the efficiency of her swallow function, rule out aspiration and make recommendations regarding safe dietary consistencies, effective compensatory strategies, and safe eating environment. Past Medical History: Diagnosis Date Arthritis Atrial fibrillation (CMS/HCC) (HCC) Chronic obstructive pulmonary disease (HCC) 08/24/2017 GERD (gastroesophageal reflux disease) Hypertension Osteoarthritis Psoriasis Past Surgical History: Procedure Laterality Date ABDOMINAL SURGERY bladder bowel all dropped APPENDECTOMY BLADDER SUSPENSION BRONCHOSCOPY (HISTORICAL) 06/28/2017 Bronch ENB CHOLECYSTECTOMY COLONOSCOPY FINGER SURGERY HERNIA REPAIR 1959' umbilical SHOULDER SURGERY Right SPINE SURGERY 1985 TOTAL ABDOMINAL HYSTERECTOMY UPPER GASTROINTESTINAL ENDOSCOPY Subjective General Chart Reviewed: Yes Subjective Subjective: Pt stated she has been coughing with liquids and solids for a couple of years now. She notices that if she tips her head up while drinking coughing occurs more often. Pt with hx of hiatal hernia and had her esophagus stretched a long time ago. Pt has COPD. Behavior/Cognition Behavior/Cognition: Alert, Cooperative, Pleasant mood Assessment Oral Preparation / Oral Phase: Oral Phase: Pt with functional oral phase of the swallow. For all consistencies administered, pt with timely mastication, bolus formatio and AP transit. Limited amounts of oral residues after swallow. Pharyngeal Phase: Pharyngeal: Pt with functional pharyngeal phase of the swallow. For all trials, pt with adequate contact between base of tongue and pharyngeal wall. There is spillage to valleculae before initiation of the swallow. With drinks of thin liquids, pt does have flash penetration/coating of the back of the epiglottis, but liquids do not penetrate the vocal cords. Minimal residues noted in valleculae and piriforms after swallow. No vocal cord penetration or aspiration during evaluation. Cervical Esophageal Phase: Upper Esophageal Screen Esophageal Screen: WFL (The length of the esophagues is visualized with no stasis noted. Full clearance is achieved.) Impression Pt with functional oropharyngeal swallowing pattern. Recommend continuation of regular diet with thin liquids. No need for ongoing management with speech therapy. Thank you for this referral. Plan & Recommendations Recommendations/Treatment: Recommendations/Treat Requires AIRPORT REPRESENTATIVE Intervention: No D/C Recommendations: No follow up therapy recommended post discharge Solid consistency: Regular Liquid consistency: Thin Liquid administration via: Spoon, Cup Medication administration: Meds in puree Supervision: Independent Compensatory Swallowing Strategies : Small bites/sips,Swallow 2 times per bite/sip Education Given: diet recommendations, discussed menu selection options such as increasing moisture in foods. Education Response: Verbalizes understanding Prognosis: Prognosis Prognosis for safe diet advancement: excellent Barriers to reach goals: age, severity of dysphagia Individuals consulted Consulted and agree with results and recommendations: Patient The patient was educated regarding the general results and recommendations of this evaluation. Therapy Time AIRPORT REPRESENTATIVE Individual Minutes Time In: 1300 Time Out: 1325 Minutes: 25 DALILA Rascon documented in this encounter [facility] 11-08-2022 Miscellaneous Notes Patient verbalized understanding. Labs: Lipid: Triglycerides within optimal range. HDL good cholesterol is in acceptable range. This can be improved with exercise. Target for HDL cholesterol is >45 mg/dl. In low to moderate risk patients, LDL bad cholesterol target is less than 100. Excellent result. Hba1c is in near normal range. Giselle Elizondo MD documented in this encounter [facility] 11-02-2022 Miscellaneous Notes That's fine, she can have the A1C and lipid panel drawn at another time when fasting. Anat Roberts APRN.CNP Called lab. They are not able to add d/t sample only being stable 48 hours after draw. Called and informed pt of resulted labs. Pt indicated understanding and stated she did not know she was supposed to be fasting so she did not have the lipid panel drawn. Patient called to get lab results. Please call back at [phone]. Lab results Potassium a little low. Kidney function OK, liver enzymes OK Glucose over 125. CBC stable. Will check with lab to see if Hba1c can be added to rule out diabetes. Telephone on 11/01/22 HGB A1C Giselle Elizondo MD documented in this encounter [facility] 10-28-2022 Miscellaneous Notes 2nd attempted call. Patients voicemail has not been set up. Appt. Lab prior please The following approved medication requests have been transmitted electronically. Requested Prescriptions Signed Prescriptions Disp Refills carisoprodol (SOMA) 350 mg tablet 30 tablet 0 Sig: take 1 tablet by mouth twice a day if needed for up to 30 DAYS Authorizing Provider: GISELLE ELIZONDO MD Pharmacy verified in Epic Patient has been identified by name and date of : Yes Patient aware RX will be sent to pharmacy. No need to notify patient. Pharmacy phones for refill(s): Requested Prescriptions Pending Prescriptions Disp Refills carisoprodol (SOMA) 350 mg tablet [Pharmacy Med Name: CARISOPRODOL 350 MG TABLET] 30 tablet Sig: take 1 tablet by mouth twice a day if needed for up to 30 DAYS Date of last office visit : 07/05/2022 Date of next office visit : 11/28/2022 Last 2 Encounter Wt Readings: Date: Wt: 07/11/2022 83 kg (183 lb) 07/05/2022 83.5 kg (184 lb) Please advise. Kaitlyn Doe Ma documented in this encounter [facility] 10-27-2022 Miscellaneous Notes Voicemail not set up. No answer No recent labs, order place for complete metabolic and lipid Refill on 10/26/22 CBC COMP METABOLIC PANEL LIPID PANEL BASIC TSH BLD 1 fill only The following approved medication requests have been transmitted electronically. Requested Prescriptions Signed Prescriptions Disp Refills hydroCHLOROthiazide (HYDRODIURIL, ESIDRIX) 12.5 mg capsule 90 capsule 0 Sig: Take 1 capsule by mouth once daily. Authorizing Provider: GISELLE ELIZONDO MD Patient had medication filled in July by a previous provider. Patient taking the HCTZ 12.5 mg daily Patient is calling back, please call to discuss provider message , she will await your call at phone [phone] which is home phone or cell at [phone] No answer. Voice mail on both phones not set up yet. Please call patient to clarify if she's still taking this and what dose. It hasn't been prescribed since 2019. Anat Roberts APRN.OLDER WORKER SPECIALIST Refill request from [facility] for hydrochlorothiazide capsules. Request does not specify strength and pt has 2 different strengths of requested drug. Please advise. documented in this encounter [facility] 08-09-2022 Miscellaneous Notes Patient returned call and message was relayed. Patient understands and will await the provider's decision. Soma is considered high risk med, especially in older patients. Who are also on tramadol 1 fill ok. Will need to switch to a different medication after this fill The following approved medication requests have been transmitted electronically. Requested Prescriptions Signed Prescriptions Disp Refills carisoprodol (SOMA) 350 mg tablet 30 tablet 0 Sig: Take 1 tablet by mouth twice daily as needed for up to 30 days. Authorizing Provider: GISELLE ELIZONDO MD Patient has been identified by name and date of : Yes Requested Prescriptions Pending Prescriptions Disp Refills carisoprodol (SOMA) 350 mg tablet 5 Sig: Take 1 tablet by mouth twice daily as needed. RX INSTRUCTIONS: Patient aware RX will be sent to pharmacy. No need to notify patient. Zina Huffman documented in this encounter [facility] 07-12-2022 Miscellaneous Notes Birthday verified with patient over the phone. Aware of the below information with all questions answered. COVID-19/flu negative; recommended to self-isolate until the following criteria are met: If you are symptomatic, the CDC recommends that people refrain from work/school and isolate themselves until - At least 24 hours have passed since last fever without the use of fever-reducing medications Other symptoms have improved Please continue with supportive care (rest and hydration) and follow up with primary care for any persistent or worsening symptoms. Please wear a mask when out in public after symptoms have improved. documented in this encounter [facility] 07-11-2022 History of Present illness Narrative This note was created using [employer]. Subjective Lesli Rosales is a 82 year old female. HPI by patient: Lesli Rosales is a 82 year old presenting to the office with the complaint of viral symptoms. Started this morning with the headache. States I just need antibiotics to help with this - points to left maxillary area. History of COPD, is to wear oxygen but didn't bring with her today. Associated symptoms include facial pressure, runny nose, headache, shortness of breath, sneezing, body aches, and diarrhea- but states it's from her medication from dermatology. States not too much to cough. Denies fevers, chills, nausea, and vomiting. Vaccinated for influenza: yes. Covid Immunization Dates Overdue - COVID-19 VACCINE (5 - Booster for Moderna series) Overdue since 05/27/2022 04/01/2022 Imm Admin: COVID-19 original vaccine, full dose, monovalent (MODERNA) 08/05/2021 Imm Admin: COVID-19 original vaccine, full dose, monovalent (MODERNA) 12/10/2020 Imm Admin: COVID-19 original vaccine, full dose, monovalent (MODERNA) 11/12/2020 Imm Admin: COVID-19 original vaccine, full dose, monovalent (MODERNA) Personal history of Covid: none. Flu/RSV contacts: none. Strep contacts: none. Sick contacts: none. Covid + contacts: none. Travel in the last 14 days: none. Smoking history/second hand smoke: none. OTC not used. Has been on antibiotics for dental procedures in the last 90 days. ALLERGIES No Known Allergies No family history on file. Social History Tobacco Use Smoking status: Former Packs/day: 1.00 Years: 17.00 Pack years: 17 Types: Cigarettes Quit date: 09/22/1975 Years since quittin.8 Smokeless tobacco: Never Active Ambulatory Problems History of right shoulder replacement Date Noted: 07/05/2022 Cervical spondylosis Date Noted: 07/05/2022 Chronic obstructive pulmonary disease (HCC) Date Noted: 07/05/2022 Chronic atrial fibrillation ([facility]) Date Noted: 07/05/2022 Essential hypertension Date Noted: 07/05/2022 Psoriasis, unspecified Date Noted: 07/05/2022 Chronic midline low back pain without sciatica Date Noted: 07/05/2022 Psoriatic arthritis ([facility]) Date Noted: 07/05/2022 Resolved Ambulatory Problems No Resolved Ambulatory Problems Past Medical History: No date: A-fib ([facility]) No date: Chronic obstructive pulmonary disease (COPD) ([facility]) No date: Hypertension No date: Psoriasis Review of Systems Constitutional: Negative. HENT: Positive for sinus pressure and sinus pain. Eyes: Negative. Respiratory: Positive for cough and shortness of breath. Cardiovascular: Negative. Gastrointestinal: Negative. Endocrine: Negative. Genitourinary: Negative. Musculoskeletal: Negative. Skin: Negative. Neurological: Positive for headaches. Hematological: Negative. Objective BP 155/79 Pulse 66 Temp 36.7 C (98.1 F) Resp 16 Ht 154.9 cm (5' 1 ) Wt 83 kg (183 lb) SpO2 91% BMI 34.58 kg/m Physical Exam Vitals reviewed. Constitutional: General: She is not in acute distress. Appearance: She is not ill-appearing, toxic-appearing or diaphoretic. HENT: Head: Normocephalic and atraumatic. Right Ear: Tympanic membrane, ear canal and external ear normal. Left Ear: Tympanic membrane, ear canal and external ear normal. Nose: Rhinorrhea present. Right Sinus: No maxillary sinus tenderness or frontal sinus tenderness. Left Sinus: No maxillary sinus tenderness or frontal sinus tenderness. Mouth/Throat: Mouth: Mucous membranes are moist. Pharynx: Oropharynx is clear. No oropharyngeal exudate or posterior oropharyngeal erythema. Cardiovascular: Rate and Rhythm: Normal rate. Pulmonary: Effort: Pulmonary effort is normal. Breath sounds: Normal breath sounds. Lymphadenopathy: Head: Right side of head: No submandibular or tonsillar adenopathy. Left side of head: No submandibular or tonsillar adenopathy. Cervical: No cervical adenopathy. Psychiatric: Behavior: Behavior is cooperative. Assessment and Plan (J06.9) Viral URI with cough (primary encounter diagnosis) Plan: COVID WITH FLUA+B, ROUTINE, fluticasone (FLONASE ALLERGY RELIEF) 50 mcg/actuation nasal spray, dextromethorphan-guaiFENesin (MUCINEX DM) 30-600 mg per tablet Education on viral vs bacterial infections. Most viral infections will last 10 days, sometimes 14. It is possible to have back to back viral infections. An antibiotic will not treat a virus. -Covid/flu test for rule out, results in 48 hours, isolation in the interim. Will call with result. Should you be positive and want outpatient covid treatment you can contact your primary care provider. Symptomatic for less than 24 hours, recommending supportive care: Go home and put oxygen on. -Drink lots of fluids and get plenty of rest. -Vaporizers, cool mist humidifiers, warm showers, and warm fluids help open respiratory and sinus passages. Clean humidifiers daily. -OTC tylenol as directed on the bottle. -Saline nasal spray as needed. Flonase twice daily can help reduce inflammation through the sinus cavities. -OTC Mucinex DM or generic version for cough/congestion for those over the age of 12. -Cough/deep breathing education, promote clearing of the airways and good lung expansion. -Make follow up with primary care for monitoring and resolution in symptoms. -Signs that warrant an ER evaluation: Sudden change/worsening in condition, lethargy, signs of dehydration, fever greater than 102 F that is not responding to Tylenol or ibuprofen (Motrin, Advil), drooling, difficulty swallowing, difficulty breathing, shortness of breath, chest pain, evidence of airway compromise (tripod position, neck extension, retractions), seizures, changes in mental status, or other concerns. The patient will pursue further outpatient evaluation with the primary care physician or another Urgent Care/Express Care as outlined in the after visit summary. The patient is agreeable to this plan of care and follow-up instructions have been explained in detail. The patient has received these instructions in written format and have expressed an understanding of the after visit summary. Medical Decision Making: Level: 3 - Low I spent a total of 20 minutes on the date of the service which included preparing to see the patient, [id number] patient care, completing clinical documentation, obtaining and/or reviewing separately obtained history, performing a medically appropriate examination, counseling and educating the patient/family/caregiver, and ordering medications, tests, or procedures. This patient encounter involved the screening or treatment of novel coronavirus infection (COVID-19). documented in this encounter [facility] 07-11-2022 Instructions Allyson Maradiaga APRN.CNP - 07/11/2022 3:32 PM EST (J06.9) Viral URI with cough (primary encounter diagnosis) Plan: COVID WITH FLUA+B, ROUTINE, fluticasone (FLONASE ALLERGY RELIEF) 50 mcg/actuation nasal spray, dextromethorphan-guaiFENesin (MUCINEX DM) 30-600 mg per tablet Education on viral vs bacterial infections. Most viral infections will last 10 days, sometimes 14. It is possible to have back to back viral infections. An antibiotic will not treat a virus. -Covid/flu test for rule out, results in 48 hours, isolation in the interim. Will call with result. Should you be positive and want outpatient covid treatment you can contact your primary care provider. Symptomatic for less than 24 hours, recommending supportive care: Go home and put oxygen on. -Drink lots of fluids and get plenty of rest. -Vaporizers, cool mist humidifiers, warm showers, and warm fluids help open respiratory and sinus passages. Clean humidifiers daily. -OTC tylenol as directed on the bottle. -Saline nasal spray as needed. Flonase twice daily can help reduce inflammation through the sinus cavities. -OTC Mucinex DM or generic version for cough/congestion for those over the age of 12. -Cough/deep breathing education, promote clearing of the airways and good lung expansion. -Make follow up with primary care for monitoring and resolution in symptoms. -Signs that warrant an ER evaluation: Sudden change/worsening in condition, lethargy, signs of dehydration, fever greater than 102 F that is not responding to Tylenol or ibuprofen (Motrin, Advil), drooling, difficulty swallowing, difficulty breathing, shortness of breath, chest pain, evidence of airway compromise (tripod position, neck extension, retractions), seizures, changes in mental status, or other concerns. documented in this encounter [facility] 07-07-2022 Miscellaneous Notes Letter placed in outgoing mail. Letter printed. Please send. Giselle Elizondo MD Patient is agreeable with this weight. I generally advise to try to lose about 10-15% of current body weight which would put her goal at about 160 lb. Does that sound good to her? Will do a letter for her but don't want to over or undershoot her expectations too much . Giselle Elizondo MD Lesli is going to a facility called [facility] ([facility]). For the program she needs a letter from her PCP with a healthy weight goal. It should be on [facility] Letterhead with Dr. Elizondo's signature. The letter can be mailed to Lesli. documented in this encounter [facility] 07-05-2022 History of Present illness Narrative CHIEF COMPLAINT Patient presents with: Establish Care: physical HISTORY OF PRESENT ILLNESS Lesli Rosales is a 82 year old female who presents here today for a complete physical exam. The patient is here today to establish care. Patient reports feeling generally well today. Shoulder Pain Patient fell a year ago and says that she dislocated her arm from her shoulder. She had a shoulder replacement this year. She also notes having some low back pain. Patient is managed on [place]. She currently follows pain management and has been for 5 years. Afib Patient has been seeing a embossograph operator. adherent to current regimen without side effects from medication. No current symptoms. Patient notes that she feels that she is unable to breathe at times. 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 She is SOB on exertion. Health Maintenance Due for Pneumovax. Due for TDAP. Due for Shingrix series Due for Bone density screen Due for advance directive discussion. Due for depression screening. Due for COVID-19 booster Labs reviewed. Past, family and social history reviewed. PAST MEDICAL HISTORY PAST MEDICAL HISTORY Diagnosis Date A-fib (HCC) Chronic obstructive pulmonary disease (COPD) (HCC) Hypertension Psoriasis PAST SURGICAL HISTORY Procedure Laterality Date BACK SURGERY HX CHOLECYSTECTOMY HX ALLERGIES Patient has no known allergies. No family history on file. Social History Tobacco Use Smoking status: Former Types: Cigarettes Quit date: 09/22/1975 Years since quittin.8 Smokeless tobacco: Never REVIEW OF SYSTEMS General: Feels well, no weight changes, fever, chills. +obesity HEENT: No sinus congestion, earache, sore throat. Cardiac: No chest pain, palpitations Resp: No cough, wheeze, +shortness of breath GI: No food intolerance, bowel changes. +hiatal hernia +reflux : No urinary frequency, dysuria. MS: +back pain +shoulder pain PHYSICAL EXAMINATION BP 126/85 Pulse 61 Ht 154.9 cm (5' 1 ) Wt 83.5 kg (184 lb) BMI 34.77 kg/m General: Alert, well developed, well nourished, no distress, pleasant and cooperative. Obese. HEENT: No adenopathy or thyromegaly. Heart: Regular rate and rhythm. Normal S1 and S2. No murmurs, rubs, or gallops. Lungs: Clear to auscultation bilaterally. No respiratory distress. No wheezes, rales, or rhonchi. Abdomen: Soft, non-tender, no distention. Extremities: R shoulder very limited ROM. Active abduction only to about 30 degrees, passive abduction to just over 90 degrees. L shoulder ROM is good. Mild back pain on palpation. Feet/ankles without edema, posterior tibial pulses full and symmetrical. Assessment/Plan (I48.20) Chronic atrial fibrillation (HCC) (primary encounter diagnosis) Comment: well controlled Plan: continue on current regimen (J44.9) Chronic obstructive pulmonary disease, unspecified COPD type ([facility]) Comment: patient is often SOB Plan: continue on current regimen (I10) Essential hypertension Comment: BP well controlled in office Plan: continue on current regimen (M47.812) Cervical spondylosis Comment: patient has back pain Plan: continue to follow pain management (Z96.611) History of right shoulder replacement Comment: limited ROM Plan: continue to follow pain management (M54.50, G89.29) Chronic midline low back pain without sciatica Comment: in need of refill Plan: carisoprodol (SOMA) 350 mg tablet (L40.9) Psoriasis, unspecified (L40.50) Psoriatic arthritis ([facility]) Comment: well controlled Plan: continue on current regimen Requested Prescriptions Signed Prescriptions Disp Refills betamethasone valerate 0.1 % cream 45 g 3 Sig: Apply to affected area once daily. Apply to arms famotidine (PEPCID) 20 mg tablet 90 tablet 3 Sig: Take 1 tablet by mouth once daily. rivaroxaban (XARELTO) 20 mg tablet 90 tablet 3 Sig: Take 1 tablet by mouth daily with dinner. carisoprodol (SOMA) 350 mg tablet 30 tablet 0 Sig: Take 1 tablet by mouth at bedtime as needed for up to 30 days. RTO: 6 months Scribe Attestation: By signing my name below, I, Ileana Ivory, attest that this documentation has been prepared under the direction and in the presence of Harpreet Elizondo M.D. Electronically Signed: Carlos Gomes. July 05, 2022 8:08 AM Provider Attestation: I, Giselle Elizondo MD, personally performed the services described in this documentation. All medical record entries made by the scribe were at my direction and in my presence. I have reviewed the chart and discharge instructions (if applicable) and agree that the record reflects my personal performance and is accurate and complete. Electronically Signed: Giselle Elizondo MD July 05, 2022 1:56 PM documented in this encounter [facility] 05-12-2022 Miscellaneous Notes I am happy to see her, but I will not be filling any controlled substance medications for her during this appointment. She will need to see Dr. Elizondo for discussion about that medication. Anat Roberts APRN.MARJ Lesli is all scheduled now for next week with Anat. [place] Patient would like a written script to take to dentist stating this information. Patient requesting a refill on Soma. Patient informed that medication can not be filled until she is seen in the office. Patient agreeable to a sooner appt with MARJ Typically we advise holding Xarelto for 3 days. Giselle Elizondo MD Lesli Rosales is calling No Pcp; she is scheduled to establish care with Dr. Eilzondo but has never seen him; scheduled on 07/05/22. She stated her current doctor left, and the entire office is closed. She is having a dental procedure and needs to know how many days before she is having a tooth extraction should she stop the Xarelto medication? She is insisting this message is sent to Dr. Elizondo. Please call her. Patient has been identified by name and birthdate. Duration of symptoms: N/A Person calling: self Call patient at: at home [phone] (home) [phone] (cell) Was an appointment scheduled: No Closing statement: Results or non-symptom based questions: Thank you for calling [facility], your call will be returned within the next business day. Robyn Ortiz Pss documented in this encounter [facility] 11-06-2021 Hospital Discharge instructions Patient Education 11/06/2021 10:32:18 5 - [facility] Post-op Instruction 03/2017 56962) [facility] Post-operative Instructions PLEASE FOLLOW [facility] POST-OP INSTRUCTIONS GIVEN WATCH FOR SIGNS OF INFECTION: call the office ([phone]) if experencing any of the following: (Usually appears 36-48 hours after surgery) Increased temperature (101 degrees Fahrenheit or higher) Redness or swelling Increased uncontrolled pain Foul odor or drainage Calf discomfort Significant swelling Or if having any chest pain, shortness of breath, or difficulty breathing or swallowing call the office or go the nearest Emergency Room. If you have any questions, please call your doctor at the number listed on your follow up instructions. Form: [id number]) R: 12/25 Follow Up Care 11/02/2021 14:03:08 With:VIBHA RAMÍREZ PA-C, Orthopedic, Orthopedic, Orthopedic Address: [facility] [address] [place] [address] [phone] When:11/19/2021 10:45:00 Comments:This is your post-op appointment. With:[facility] Address: [address] [place] [phone] When:11/22/2021 10:30:00 Comments:This is your first physical therapy appointment. Follow-up as scheduled. [facility] 11-03-2021 Hospital Discharge instructions Patient Education 11/03/2021 11:06:38 Humerus Fracture Treated With Immobilization, Kvnj-xb-Nhls Humerus Fracture Treated With Immobilization The humerus is the large bone in the upper arm. A broken (fractured) humerus is often treated by wearing a cast, splint, or sling (immobilization). This holds the broken pieces in place so they can heal. What are the causes? This condition may be caused by: A fall. A hard, direct hit to the arm. A car accident. What increases the risk? You are more likely to develop this condition if: You are elderly. You have a disease that makes the bones thin and weak. What are the signs or symptoms? Pain. Swelling. Bruising. Not being able to move your arm normally. How is this treated? Treatment involves wearing a cast, splint, or sling until your arm heals enough for you to begin ohitd-hk-fvgldn exercises. You may also be prescribed pain medicine. Follow these instructions at home: If you have a cast: Do not stick anything inside the cast to scratch your skin. Check the skin around the cast every day. Tell your doctor if you have any concerns. You may put lotion on dry skin around the edges of the cast. Do not put lotion on the skin under the cast. Keep the cast clean and dry. If you have a splint or sling: Wear the splint or sling as told by your doctor. Remove it only as told by your doctor. Loosen the splint or sling if your fingers: ?Tingle. ?Become numb. ?Turn cold and blue. Keep the splint or sling clean and dry. Bathing Do not take baths, swim, or use a hot tub until your doctor says that you can. Ask your doctor if you may take showers. You may only be allowed to take sponge baths. If your cast, splint, or sling is not waterproof: ?Do not let it get wet. ?Cover it with a watertight covering when you take a bath or shower. If you have a sling, remove it for bathing only if your doctor says this is okay. Managing pain, stiffness, and swelling If told, put ice on the injured area. ?If you have a removable splint or sling, remove it as told by your doctor. ?Put ice in a plastic bag. ?Place a towel between your skin and the bag or between your cast and the bag. ?Leave the ice on for 20 minutes, 2 3 times a day. Move your fingers often. Raise (elevate) the injured area above the level of your heart while you are sitting or lying down. Driving Do not drive or use heavy machinery while taking prescription pain medicine. Do not drive while wearing a cast, splint, or sling on an arm that you use for driving. Activity Return to your normal activities as told by your doctor. Ask your doctor what activities are safe for you. Do not lift anything until your doctor says that it is safe. Do twjoz-qa-htbfxx exercises only as told by your doctor. General instructions Do not put pressure on any part of the cast or splint until it is fully hardened. This may take many hours. Do not use any products that contain nicotine or tobacco, such as cigarettes, e-cigarettes, and chewing tobacco. These can delay bone healing. If you need help quitting, ask your doctor. Take bcmt-vdj-gytqsvz and prescription medicines only as told by your doctor. Ask your doctor if the medicine you are taking can cause trouble pooping (constipation). You may need to take steps to prevent or treat trouble pooping: ?Drink enough fluid to keep your pee (urine) pale yellow. ?Take naoc-oex-mgfgypz or prescription medicines. ?Eat foods that are high in fiber. These include beans, whole grains, and fresh fruits and vegetables. ?Limit foods that are high in fat and sugar. These include fried or sweet foods. Keep all follow-up visits as told by your doctor. This is important. Contact a doctor if: You have any new pain, swelling, or bruising. Your pain, swelling, and bruising do not get better. Your cast, splint, or sling becomes loose or damaged. Get help right away if: Your skin or fingers on your injured arm turn blue or gloria. Your arm is cold or numb. You have very bad pain in your injured arm. Summary The humerus is the large bone in the upper arm. A broken humerus is often treated by wearing a cast, splint, or sling. Wear a splint or sling as told by your doctor. Remove it only as told by your doctor. Move your fingers often. This information is not intended to replace advice given to you by your health care provider. Make sure you discuss any questions you have with your health care provider. Document Released: 01/23/2009 Document Revised: 04/08/2019 Document Reviewed: 04/08/2019 [employer] Patient Education 2020 Do It In Person. Follow Up Care 09/28/2021 13:30:21 With:VIBHA RAMÍREZ PA-C, Orthopedic, Orthopedic, Orthopedic Address: [facility] [address] [place] [phone]- When:11/19/2021 10:45:00 Comments:This is your post-op appointment. Follow-up as scheduled. With:[facility] Address: [address] [place] [phone] When:11/22/2021 10:30:00 Comments:This is your first physical therapy appointment. Follow-up as scheduled. [facility] 1. Humerus fracture 2. Adverse effect of local anesthetic 3. COPD without exacerbation 4. Atrial fibrillation 5. HTN (hypertension) Patient presented here today for an elective repair of right humerus fracture however she had an adverse effect of the nerve block, resulting in shortness of breath and tachypnea. Patient was initially placed on a 10 L simple mask and has been weaned to 3 L nasal cannula at this time, O2 saturations are stable. She does have very mild expiratory wheeze, still having some shortness of breath but feels improved overall. I have ordered scheduled albuterol treatments, continue her home long-acting inhaler or the interchange for that. Wean O2 as able. Hopefully stable for discharge home tomorrow and then will return later in the week for surgical repair. History of atrial fibrillation, continue atenolol, Xarelto will continue to be on hold until after her surgery is completed. History of hypertension, typically on HCTZ at home, hold for now. Discussed with Dr. Steffen Joshi Orders: acetaminophen, Start: 11/02/21 12:45:00 EDT, Dose = 650 mg, = 2 tab(s), Oral, q4h, PRN, Pain, scale 1-3 acetaminophen, Start: 11/02/21 12:45:00 EDT, Dose = 650 mg, = 2 tab(s), Oral, q6h, PRN, Fever acetaminophen-hydrocodone, Start: 11/02/21 12:45:00 EDT, Dose = 1 tab(s), Tab, Oral, q4h, PRN, Pain, scale 4-10 albuterol, Start: 11/02/21 13:00:00 EDT, Dose = 2.5 mg, = 3 mL, Inhalation, QID atenolol, Start: 11/02/21 12:42:00 EDT, Dose = 25 mg, = 1 tab(s), Oral, Daily famotidine, Start: 11/02/21 12:42:00 EDT, Dose = 40 mg, = 2 tab(s), Oral, Daily melatonin, Start: 11/02/21 12:45:00 EDT, Dose = 3 mg, = 1 tab(s), Oral, qHS, PRN, Sleep ondansetron, Start: 11/02/21 12:45:00 EDT, Dose = 4 mg, = 2 mL, IV Push, q4h, PRN, Nausea/Vomiting polyethylene glycol 3350, Start: 11/02/21 12:45:00 EDT, Dose = 17 gram(s), = 15 mL, Oral, BID, PRN, Constipation Activity as tolerated Code Status Diet Order Intake and Output Future Appointments [facility] Evaluation + Plan note Future Appointments [facility] Evaluation note* Diagnosis Presence of right artificial shoulder joint Shoulder joint replacement by other means [facility]: [facility]* Diagnosis Dizziness and giddiness documented in this encounter [facility] Work Phone: Evaluation note* Diagnosis Chronic atrial fibrillation (HCC)- Primary Atrial fibrillation Chronic obstructive pulmonary disease, unspecified COPD type (HCC) Essential hypertension Unspecified essential hypertension Cervical spondylosis Cervical spondylosis without myelopathy History of right shoulder replacement Chronic midline low back pain without sciatica Psoriasis, unspecified Psoriatic arthritis (HCC) Psoriatic arthropathy [facility] Diagnosis Viral URI with cough- Primary Acute upper respiratory infections of unspecified site [facility] Diagnosis Chronic midline low back pain without sciatica- Primary [facility] Diagnosis Cervical spondylosis- Primary Cervical spondylosis without myelopathy Chronic atrial fibrillation (HCC) Atrial fibrillation Essential hypertension Unspecified essential hypertension Screening for lipid disorders documented in this encounter [facility] note* Diagnosis Chronic midline low back pain without sciatica documented in this encounter [facility] note* Diagnosis Hyperglycemia- Primary Other abnormal glucose documented in this encounter [facility] note* Diagnosis Dysphagia, unspecified type Choking, sequela documented in this encounter [facility] note* Diagnosis Status post shoulder replacement, right- Primary Osteoporosis of shoulder region Hypokalemia Hypopotassemia Essential hypertension Unspecified essential hypertension Chronic atrial fibrillation (HCC) Atrial fibrillation Chronic obstructive pulmonary disease, unspecified COPD type (HCC) Psoriatic arthritis (HCC) Psoriatic arthropathy documented in this encounter [facility] note* Diagnosis Essential hypertension Unspecified essential hypertension [facility] Diagnosis Chronic midline low back pain without sciatica [facility] Diagnosis Chronic midline low back pain without sciatica documented in this encounter [facility] note* Diagnosis Chronic obstructive pulmonary disease, unspecified COPD type (HCC)- Primary Dysphagia, unspecified type Lung nodule Other diseases of lung, not elsewhere classified Pulmonary fibrosis (HCC) Postinflammatory pulmonary fibrosis documented in this encounter [facility] note* Diagnosis BRBPR (bright red blood per rectum)- Primary Hemorrhage of rectum and anus Chronic constipation Unspecified constipation Abnormal weight loss Loss of weight Abdominal distension (gaseous) Flatulence, eructation, and gas pain Other constipation Nausea Nausea alone documented in this encounter [facility] note* Diagnosis Chronic obstructive pulmonary disease, unspecified COPD type (HCC)- Primary [facility]* Diagnosis Abnormal CT scan, colon- Primary Nonspecific (abnormal) findings on radiological and other examination of gastrointestinal tract Chronic constipation Unspecified constipation documented in this encounter [facility] note* Diagnosis Chronic obstructive pulmonary disease, unspecified COPD type (HCC) [facility] Diagnosis Chronic obstructive pulmonary disease, unspecified COPD type (HCC) [facility] Diagnosis Moderate COPD (chronic obstructive pulmonary disease) (HCC)- Primary Chronic airway obstruction, not elsewhere classified Restrictive lung disease Other diseases of lung, not elsewhere classified Lung nodules Other nonspecific abnormal finding of lung field Former cigarette smoker Personal history of tobacco use, presenting hazards to health [facility]* Diagnosis Chronic midline low back pain without sciatica documented in this encounter [facility] note* Diagnosis Pancreatic cyst Cyst and pseudocyst of pancreas [facility] Diagnosis Chronic obstructive pulmonary disease, unspecified COPD type (HCC) Pulmonary fibrosis (HCC) Postinflammatory pulmonary fibrosis Lung nodule Other diseases of lung, not elsewhere classified documented in this encounter [facility] course Narrative No data available for this section [facility] Hospital Discharge instructions No data available for this section [facility] Summary Purpose Family History No Family History Records FoundNo Family History Records FoundNo Family History Records FoundNo Family History Records FoundNo Family History Records FoundNo Family History Records FoundNo Family History Records FoundNo Family History Records Found Advance Directives No Advanced Directives Records FoundDocuments on File Type Date Recorded Patient [employer] Expl anation Advance Directives and Living Will Power of Harmonic Analyst Documents on File Type Date Recorded Patient [employer] Expl anation ACP-Advance Directive ACP-Power of Harmonic Analyst Documents on File Type Date Recorded Patient [employer] Expl anation ACP-Advance Directive ACP-Power of Harmonic Analyst Reason for Referral Status Reason Specialty Diagnoses / Procedures Referred By Contact Referred To Contact Open Specialty Services Required Otolaryngology Diagnoses Epistaxis, recurrent Shu, Luke Soliz MD [address] [place] [address] [facility] [address] [place] [address] Scheduling Instructions [facility] [address] [place], [place] [address] F: [phone] Specialty Diagnoses / Procedures Referred By Contac t Referred To Contact Radiology Diagnoses Pulmonary fibrosis (HCC) Procedures CT chest wo IV contrast Jay Rodas PA-C [address] [address] Referral ID Status Reason Start Date Expiration Date V isits Requested Visits Authorized [id number] Authorized 05/17/2023 11/13/2023 1 1 Specialty Diagnoses / Procedures Referred By Contac t Referred To Contact CT IMAGING Diagnoses BRBPR (bright red blood per rectum) Chronic constipation Abnormal weight loss Abdominal distension (gaseous) Other constipation Nausea Procedures CT ABD/PEL W IVCON CT ABD & PELVIS W/CONTRAST Fernanda Horne PA-C [address] [place] [address] [place] [id number] Referral ID Status Reason Start Date Expiration Date Visits Requested Visits Authorized [id number] Authorized Auto-Generat ed Referral 05/22/2023 06/20/2024 1 1 Specialty Diagnoses / Procedures Referred By Contac t Referred To Contact Pulmonary and Critical Care Medicine Diagnoses Chronic obstructive pulmonary disease, unspecified COPD type (HCC) Procedures CONSULT TO PULM/CRITICAL CARE OFFICE/OUTPATIENT [facility] 60-74 MINUTES Ruby Prater, AIR BOX TESTER.OLDER WORKER SPECIALIST [address] [place] [address] Referral ID Status Reason Start Date Expiration Date Visits Requested Visits Authorized [id number] Pending Review PCP Requested Referral 05/23/2023 05/22/2024 1 1 Discharge Instructions * Attachments The following attachments cannot be sent through Care Everywhere. * Nosebleeds (Nigerian) documented in this encounter Assessments Diagnosis Epistaxis, recurrent Additional Source Comments INFORMATION SOURCE (unrecogn ized section and content) DATE CREATED AUTHOR AUTHOR'S ORGANIZ ATION 07/11/2021 [facility] DATE CREATED AUTHOR AUTHOR'S ORGANIZ ATION 11/17/2021 [facility] DATE CREATED AUTHOR AUTHOR'S ORGANIZ ATION 04/30/2022 [facility] DATE CREATED AUTHOR AUTHOR'S ORGANIZ ATION 12/02/2022 [facility] DATE CREATED AUTHOR AUTHOR'S ORGANIZ ATION 08/05/2023 [facility] DATE CREATED AUTHOR AUTHOR'S ORGANIZ ATION 08/07/2023 [facility] DATE CREATED AUTHOR AUTHOR'S ORGANIZ ATION 08/12/[address] [facility] Reason for Visit (unrecogniz ed section and content) Reason Comments Patient Question Stop Xarelto for den joanie procedure Reason Comments Establish Care Physical needs soma and xeralto sent [facility] Reason Comments Letter Reason Comments Viral Syndrome Woke up with headach e, has facial pain and pressure Reason Comments Results Reason Onset Date Comments Refill Request 08/09/2022 Reason Onset Date Comments Refill Request 10/26/2022 Reason Comments Refill Request Reason Comments Results Labs Reason Comments Received Outside Medical Records [facility] Lab draw 11/21/2022 Reason Comments 6 Month Exam Reason Onset Date Comments Surgery Scheduling 12/13/2022 Reason Onset Date Comments Refill Request 12/28/2022 Reason Comments Received Outside Medical Records [facility] Electrodiagnostic testing 12/30/2022 Reason Onset Date Comments is her surgery cancelled for 01/11? 01/05/2023 Reason Onset Date Comments Refill Request 02/13/2023 Reason Comments Medication Request Reason Comments Shortness of Breath Pulmonary Fibrosis Reason Comments Abdominal cramping Constipation lasts u p to 4 days at a time. Reason Comments Provider recommendation Specialty Diagnoses / Procedures Referred By Contac t Referred To Contact Radiology Diagnoses Pulmonary fibrosis (HCC) Procedures CT chest wo IV contrast Jay Rodas PA-C [address] [address] Referral ID Status Reason Start Date Expiration Date V isits Requested Visits Authorized [id number] Authorized 05/17/2023 11/13/2023 1 1 Reason Onset Date Comments Refill Request 06/12/2023 Reason Comments Spirometry Specialty Diagnoses / Procedures Referred By Contac t Referred To [facility] Diagnoses Chronic obstructive pulmonary disease, unspecified COPD type (HCC) Procedures LUNG DIFFUSION CAPACITY (DLCO) DIFFUSING CAPACITY Maru Castellon MD [address] [place] [address] [facility] [address] [place] [address] Referral ID Status Reason Start Date Expiration Date V isits Requested Visits Authorized [id number] Closed Auto-Generate d Referral 06/01/2023 06/30/2024 1 1 Specialty Diagnoses / Procedures Referred By Contac t Referred To Contact [facility] Diagnoses Chronic obstructive pulmonary disease, unspecified COPD type (HCC) Procedures SPIROMETRY WITH DILATOR IF OBSTRUCTED BRNCDILAT RSPSE SPMTRY PRE&POST-BRNCDILAT Maru Pelletier MD [address] [place] [address] [address] [address] [place] [address] Referral ID Status Reason Start Date Expiration Date V isits Requested Visits Authorized [id number] Closed Auto-Generate d Referral 06/01/2023 06/30/2024 1 1 Reason Comments New Patient COPD Specialty Diagnoses / Procedures Referred By Contac t Referred To Contact Pulmonary and Critical Care Medicine Diagnoses Chronic obstructive pulmonary disease, unspecified COPD type (HCC) Procedures CONSULT TO PULM/CRITICAL CARE OFFICE/OUTPATIENT [facility] MDM 60-74 MINUTES Ruby Prater, AIR BOX TESTER.OLDER WORKER SPECIALIST [address] [place] [address] [address] [address] Referral ID Status Reason Start Date Expiration Date V isits Requested Visits Authorized [id number] Closed PCP Requested Referral 06/01/2023 08/20/2023 1 1 Reason Comments Received Outside Medical Records Specialty Diagnoses / Procedures Referred By Contac t Referred To Contact MR IMAGING Diagnoses Pancreatic cyst Procedures MRI PANC/IRVING WO/W IVCON MRI ABDOMEN W/O & W/CONTRAST MATERIAL Fernanda Horne PA-C [address] [place] [address] [place] [id number] Referral ID Status Reason Start Date Expiration Date V isits Requested Visits Authorized [id number] Closed Auto-Generate d Referral 06/18/2023 07/17/2024 1 1 Reason Comments Med Refill Care Teams (unrecognized sec tion and content) Vessel Slag Worker Relationship Specialty Start Date End Date Altagracia, Nieves Johnny, MD PCP - General 05/07/15 Vessel Slag Worker Relationship Specialty Start Date End Date Nieves Vazquez MD PCP - General 05/07/15 Vessel Slag Worker Relationship Specialty Start Date End Date Nieves Vazquez PCP - General Internal Medicine 07/26/16 Vessel Slag Worker Relationship Specialty Start Date End Date Giselle Elizondo MD [address] [place] [address] PCP - General Family Medicine 07/05/22 Vessel Slag Worker Relationship Specialty Start Date End Date Giselle Elizondo MD [address] [place] [address] PCP - General Family Medicine 07/05/22 Vessel Slag Worker Relationship Specialty Start Date End Date Giselle Elizondo MD [address] [place] [address] [place] [address] PCP - General Family Medicine 07/05/22 Vessel Slag Worker Relationship Specialty Start Date End Date Giselle Elizondo MD [address] [place] [address] PCP - General Family Medicine 07/05/22 Vessel Slag Worker Relationship Specialty Start Date End Date Giselle Elizondo MD [address] [facility] [place] [address] PCP - General Family Medicine 07/05/22 Vessel Slag Worker Relationship Specialty Start Date End Date Giselle Elizondo MD [address] [facility] [place] [address] PCP - General Family Medicine 07/05/22 Vessel Slag Worker Relationship Specialty Start Date End Date Giselle Elizondo MD [address] [address] PCP - General Family Medicine 07/05/22 Vessel Slag Worker Relationship Specialty Start Date End Date Giselle Elizondo [address] [place] [address] PCP - General Family Medicine 10/14/22 Vessel Slag Worker Relationship Specialty Start Date End Date Giselle Elizondo MD [address] [facility] [place] [address] PCP - General Family Medicine 07/05/22 Vessel Slag Worker Relationship Specialty Start Date End Date Giselle Elizondo [address] [place] [address] PCP - General Family Medicine 10/14/22 Vessel Slag Worker Relationship Specialty Start Date End Date Giselle Elizondo [address] [place] [address] PCP - General Family Medicine 10/14/22 Vessel Slag Worker Relationship Specialty Start Date End Date Giselle Elizondo MD [address] [facility] [place] [address] PCP - General Family Medicine 07/05/22 Vessel Slag Worker Relationship Specialty Start Date End Date Giselle Elizondo MD [address] [facility] [place] [address] PCP - General Family Medicine 07/05/22 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 Relationship Specialty Start Date End Date Giselle Elizondo [address] [place] [address] PCP - General Family Medicine 10/14/22 Vessel Slag Worker Relationship Specialty Start Date End Date Giselle Elizondo MD [address] [facility] [address] [place], [place] [address] PCP - General Family Medicine 07/05/22 Vessel Slag Worker Relationship Specialty Start Date End Date Giselle Elizondo [address] [place] [address] PCP - General Family Medicine 10/14/22 Vessel Slag Worker Relationship Specialty Start Date End Date Giselle Elizondo MD [address] [facility] [address] [place], [place] [address] PCP - General Family Medicine 07/05/22 Vessel Slag Worker Relationship Specialty Start Date End Date Giselle Elizondo MD [address] [facility] [place] [address] PCP - General Family Medicine 07/05/22 Vessel Slag Worker Relationship Specialty Start Date End Date Giselle Elizondo [address] [place] [address] PCP - General Family Medicine 10/14/22 Vessel Slag Worker Relationship Specialty Start Date End Date Giselle Elizondo MD [address] [facility] [address] [place], [place] [address] PCP - General Family Medicine 07/05/22 Vessel Slag Worker Relationship Specialty Start Date End Date Giselle Elizondo MD [address] [facility] [address] [place], [place] [address] PCP - General Family Medicine 07/05/22 Vessel Slag Worker Relationship Specialty Start Date End Date Giselle Elizondo MD [address] [facility] [address] [place], [place] [id number] PCP - General Family Medicine 07/05/22 Vessel Slag Worker Relationship Specialty Start Date End Date Giselle Elizondo MD [address] [facility] [address] [place], [place] [id number] PCP - General Family Medicine 07/05/22 Vessel Slag Worker Relationship Specialty Start Date End Date Giselle Elizondo MD [address] [facility] [place] [address] PCP - General Family Medicine 07/05/22 Vessel Slag Worker Relationship Specialty Start Date End Date Giselle Elizondo [address] [facility] [place] [address] PCP - General Family Medicine 10/14/22 Source Comments (unrecognize d section and content) In the event this informatio n is protected by the Federal Confidentiality of Alcohol and Drug Abuse Patient Records regulations: The Federal rules restrict any use of the information to criminally investigate or prosecute any alcohol or drug abuse patient.[facility] the event this information is protected by the Federal Confidentiality of Alcohol and Drug Abuse Patient Records regulations: The Federal rules restrict any use of the information to criminally investigate or prosecute any alcohol or drug abuse patient.[facility]ima[facility] the event this information is protected by the Federal Confidentiality of Alcohol and Drug Abuse Patient Records regulations: The Federal rules restrict any use of the information to criminally investigate or prosecute any alcohol or drug abuse patient.[facility]ima[facility] the event this information is protected by the Federal Confidentiality of Alcohol and Drug Abuse Patient Records regulations: The Federal rules restrict any use of the information to criminally investigate or prosecute any alcohol or drug abuse patient.[facility]ima[facility] the event this information is protected by the Federal Confidentiality of Alcohol and Drug Abuse Patient Records regulations: The Federal rules restrict any use of the information to criminally investigate or prosecute any alcohol or drug abuse patient.[facility]ima[facility] the event this information is protected by the Federal Confidentiality of Alcohol and Drug Abuse Patient Records regulations: The Federal rules restrict any use of the information to criminally investigate or prosecute any alcohol or drug abuse patient.[facility]ima[facility] the event this information is protected by the Federal Confidentiality of Alcohol and Drug Abuse Patient Records regulations: The Federal rules restrict any use of the information to criminally investigate or prosecute any alcohol or drug abuse patient.[facility]ima[facility] the event this information is protected by the Federal Confidentiality of Alcohol and Drug Abuse Patient Records regulations: The Federal rules restrict any use of the information to criminally investigate or prosecute any alcohol or drug abuse patient.[facility]ima[facility] the event this information is protected by the Federal Confidentiality of Alcohol and Drug Abuse Patient Records regulations: The Federal rules restrict any use of the information to criminally investigate or prosecute any alcohol or drug abuse patient.[facility]ima[facility] the event this information is protected by the Federal Confidentiality of Alcohol and Drug Abuse Patient Records regulations: The Federal rules restrict any use of the information to criminally investigate or prosecute any alcohol or drug abuse patient.[facility]ima[facility] the event this information is protected by the Federal Confidentiality of Alcohol and Drug Abuse Patient Records regulations: The Federal rules restrict any use of the information to criminally investigate or prosecute any alcohol or drug abuse patient.[facility]ima[facility] the event this information is protected by the Federal Confidentiality of Alcohol and Drug Abuse Patient Records regulations: The Federal rules restrict any use of the information to criminally investigate or prosecute any alcohol or drug abuse patient.[facility]ima[facility] the event this information is protected by the Federal Confidentiality of Alcohol and Drug Abuse Patient Records regulations: The Federal rules restrict any use of the information to criminally investigate or prosecute any alcohol or drug abuse patient.[facility]imaIn the event this information is protected by the Federal Confidentiality of Alcohol and Drug Abuse Patient Records regulations: The Federal rules restrict any use of the information to criminally investigate or prosecute any alcohol or drug abuse patient.[facility]ima[facility] the event this information is protected by the Federal Confidentiality of Alcohol and Drug Abuse Patient Records regulations: The Federal rules restrict any use of the information to criminally investigate or prosecute any alcohol or drug abuse patient.[facility]ima[facility] the event this information is protected by the Federal Confidentiality of Alcohol and Drug Abuse Patient Records regulations: The Federal rules restrict any use of the information to criminally investigate or prosecute any alcohol or drug abuse patient.[facility]imaIn the event this information is protected by the Federal Confidentiality of Alcohol and Drug Abuse Patient Records regulations: The Federal rules restrict any use of the information to criminally investigate or prosecute any alcohol or drug abuse patient.[facility]imaIn the event this information is protected by the Federal Confidentiality of Alcohol and Drug Abuse Patient Records regulations: The Federal rules restrict any use of the information to criminally investigate or prosecute any alcohol or drug abuse patient.[facility]imaIn the event this information is protected by the Federal Confidentiality of Alcohol and Drug Abuse Patient Records regulations: The Federal rules restrict any use of the information to criminally investigate or prosecute any alcohol or drug abuse patient.[facility]imaIn the event this information is protected by the Federal Confidentiality of Alcohol and Drug Abuse Patient Records regulations: The Federal rules restrict any use of the information to criminally investigate or prosecute any alcohol or drug abuse patient.[facility]imaIn the event this information is protected by the Federal Confidentiality of Alcohol and Drug Abuse Patient Records regulations: The Federal rules restrict any use of the information to criminally investigate or prosecute any alcohol or drug abuse patient.[facility]imaIn the event this information is protected by the Federal Confidentiality of Alcohol and Drug Abuse Patient Records regulations: The Federal rules restrict any use of the information to criminally investigate or prosecute any alcohol or drug abuse patient.[facility]imaIn the event this information is protected by the Federal Confidentiality of Alcohol and Drug Abuse Patient Records regulations: The Federal rules restrict any use of the information to criminally investigate or prosecute any alcohol or drug abuse patient.[facility]imaIn the event this information is protected by the Federal Confidentiality of Alcohol and Drug Abuse Patient Records regulations: The Federal rules restrict any use of the information to criminally investigate or prosecute any alcohol or drug abuse patient.[facility]imaIn the event this information is protected by the Federal Confidentiality of Alcohol and Drug Abuse Patient Records regulations: The Federal rules restrict any use of the information to criminally investigate or prosecute any alcohol or drug abuse patient.[facility]imaIn the event this information is protected by the Federal Confidentiality of Alcohol and Drug Abuse Patient Records regulations: The Federal rules restrict any use of the information to criminally investigate or prosecute any alcohol or drug abuse patient.[facility]imaIn the event this information is protected by the Federal Confidentiality of Alcohol and Drug Abuse Patient Records regulations: The Federal rules restrict any use of the information to criminally investigate or prosecute any alcohol or drug abuse patient.[facility]imaIn the event this information is protected by the Federal Confidentiality of Alcohol and Drug Abuse Patient Records regulations: The Federal rules restrict any use of the information to criminally investigate or prosecute any alcohol or drug abuse patient.[facility]imaIn the event this information is protected by the Federal Confidentiality of Alcohol and Drug Abuse Patient Records regulations: The Federal rules restrict any use of the information to criminally investigate or prosecute any alcohol or drug abuse patient.[facility] FOR RECORDS PERTAINING TO PATIENTS WHO ARE OR HAVE BEEN ENROLLED IN A CHEMICAL DEPENDENCY/SUBSTANCEABUSE PROGRAM, SOME INFORMATION MAY BE OMITTED. This clinical summary was aggregated from multiple sources. Caution should be exercised in using it in the provision of clinical care. This summary normalizes information from multiple sources, and as a consequence, information in this document may materially change the coding, format and clinical context of patient data. In addition, data may be omitted in some cases. CLINICAL DECISIONS SHOULD BE BASED ON THE PRIMARY CLINICAL RECORDS. [facility]. provides no warranty or guarantee of the accuracy or completeness of information in this document.
== END | disposition home or self-care (01) ==
PROVIDERS: PCP Family Medicine; Referring Provider Anesthesiology Pain Medicine; Visit Provider Anesthesiology Pain Medicine
DX: M54.14 Radiculopathy, thoracic region (principal)
CPT/HCPCS: 72072

== ENCOUNTER → 2024-02-12 | Outpatient (CLI) | payer MEDICARE, SELFPAY ==
--- NOTE | 2024-02-12 10:03 | CDU_ITS ---
Reason For Study: Subjective visual disturance Rt. Velocities/BP Lt. Velocities/BP Prox CCA 69.2/17.3 cm/sec. Prox CCA 63.1/13.3 cm/sec. Mid CCA 75.9/17.3 cm/sec. Mid CCA 64.8/13.3 cm/sec. Dist CCA 53.2/14.5 cm/sec. Dist CCA 63.1/12.5 cm/sec. Prox ICA 77.8/26.7 cm/sec. Prox ICA 44.3/15 cm/sec. Mid ICA 58.3/18.3 cm/sec. Mid ICA 73.2/20.6 cm/sec. Dist ICA 67.4/19.2 cm/sec. Dist ICA 54.2/14.9 cm/sec. Rt. ICA/CCA = 1.03. Lt. ICA/CCA = 1.13. Prox ECA 55.1/7.8 cm/sec. Prox ECA 48.6/8.8 cm/sec. Rt. Vert. 34.3/10.7 cm/sec. Lt. Vert. 31.5/9.5 cm/sec. Right Extracranial There is homogeneous, smooth atherosclerotic plaque noted in the right common carotid artery. There is heterogeneous, irregular atherosclerotic plaque noted in the right internal carotid artery. There is intimal thickening but no significant atherosclerotic plaque noted in the right external carotid artery. Antegrade flow is noted in the right vertebral artery. Left Extracranial There is intimal thickening but no significant atherosclerotic plaque noted in the left common carotid artery. There is heterogeneous, irregular atherosclerotic plaque noted in the left internal carotid artery. There is intimal thickening but no significant atherosclerotic plaque noted in the left external carotid artery. Antegrade flow is noted in the left vertebral artery. Procedure Carotid Duplex 21706. This is a Carotid Duplex examination using B-mode, color flow and specral Doppler. Exam performed in department. VL/Carotid Duplex Ultrasound Interpretation Summary Mild (<50%) stenosis right extracranial internal carotid. Mild (<50%) stenosis left extracranial internal carotid. Flow within the vertebral arteries is antegrade bilaterally. Ordering Physician: Helio Hendricks Referring Physician: Harpreet Encarnacion Performed By: Jeanie Zamarripa RVT
== END | disposition home or self-care (01) ==
LOC: CVS 10:01
PROVIDERS: PCP Family Medicine; Referring Provider Ophthalmology; Visit Provider Ophthalmology
DX: H53.10 Unspecified subjective visual disturbances (principal)
CPT/HCPCS: 93880

== ENCOUNTER → 2024-04-08 | Outpatient (CLI) | payer MEDICARE, SELFPAY ==
--- NOTE | 2024-04-08 11:29 | RAD_ITS ---
STUDY: X-RAY - UNILATERAL RIBS ( LEFT ) WITH CHEST REASON FOR EXAM: Female, 84 years old. PAIN TECHNIQUE - RIBS: 3 views of the left ribs. TECHNIQUE - CHEST: Single PA view of the chest. COMPARISON: Thoracic spine radiographs dated 08/28/2023 and right shoulder radiographs dated 06/26/2021. FINDINGS - RIBS: On the PA oblique view, there are suspected fractures of the anterior left fourth through sixth ribs. FINDINGS - CHEST: There is a right shoulder arthroplasty in place. There is a stable 1.3 cm calcified granuloma in the right midlung. The lungs are otherwise clear and expanded. Normal size heart. Normal mediastinum and jan. Normal visualized pulmonary arteries. There is mild atherosclerotic calcification of the aortic arch. Normal visualized thoracic spine. Normal visualized clavicles and shoulders. There is no demonstrated abnormality of the visualized soft tissue structures of the upper abdomen. RAD/Ribs Uni Min 3V w/PA Chest IMPRESSION: RIBS: Suspected fractures of the anterior left fourth through sixth ribs. CHEST: Stable 1.5 cm calcified granuloma in the right midlung. Right shoulder arthroplasty. Electronically Signed: Carlos Macias MD at 8:46 EDT ,
== END | disposition home or self-care (01) ==
LOC: RAD 11:28
PROVIDERS: PCP Family Medicine; Referring Provider Anesthesiology Pain Medicine; Visit Provider Anesthesiology Pain Medicine
DX: J98.4 Other disorders of lung (principal); Z96.611 Presence of right artificial shoulder joint
CPT/HCPCS: 71101

== ENCOUNTER 2024-05-20 16:39 | Emergency (ER) | payer MEDICARE, SELFPAY ==
[2024-05-20 16:39] VITALS: BP 149/112; PULSE 64; RESP 18; TEMP 36.9; O2SAT 93
== END 2024-05-20 20:01 | disposition left against medical advice (07) ==
LOC: ED 20:05
PROVIDERS: PCP Family Medicine
DX: M54.9 Dorsalgia, unspecified (principal)

== ENCOUNTER → 2024-08-29 | Outpatient (CLI) | payer MEDICARE, SELFPAY ==
[2024-08-31 22:06] LABS: QNTFERON TB Mitogen Value > 10.00 IU/mL (.); QNTFERON TB Nil Value 0.04 IU/mL (.); QNTFERON TB1+ Ag Value 0.05 IU/mL (.); QNTFERON TB2+ Ag Value 0.04 IU/mL (.); QNTIFERON TB Positive Criteria Negative (Negative)
== END | disposition home or self-care (01) ==
PROVIDERS: Referring Provider Dermatology; Visit Provider Dermatology
DX: L40.0 Psoriasis vulgaris (principal); Z79.899 Other long term (current) drug therapy
CPT/HCPCS: 36415; 86480

== ENCOUNTER 2024-11-17 12:41 | Inpatient (IN) | payer MEDICARE, SELFPAY ==
[2024-11-17] VITALS (25 sets, daily range): BP systolic 77–121; BP diastolic 38–96; PULSE 56–78; RESP 8–20; TEMP 36.2–37.4; O2SAT 79–98; BMI 28.1
--- NOTE | 2024-11-17 12:50 | EDS_ITS ---
HPI History of Present Illness Chief Complaint: Lower Extremity Injury [facility] Medical History (Updated 11/17/24 @ 18:37 by Mindy Tierney) Anxiety Depression Chronic pain GERD (gastroesophageal reflux disease) On home oxygen therapy Atrial fibrillation Congestive heart failure (CHF) Hypertension Shingles Psoriatic arthritis COPD (chronic obstructive pulmonary disease) A-fib Home Medications ?Medication ?Instructions ?Recorded ?Last Taken ?Type atenolol 25 mg tablet 25 mg PO DAILY 06/26/21 Unkn own History famotidine 20 mg tablet 20 mg PO DAILY 06/26/21 Unkn own History folic acid 1 mg tablet 1 mg PO DAILY 06/26/21 Unkno wn History ipratropium bromide 0.02 % 2 ml inhalation DAILY 06/26 Unknown History solution for inhalation rivaroxaban 20 mg tablet (Xarelto) 20 mg PO DAILY 02/08 Unknown History amitriptyline 25 mg tablet 25 mg PO QHS 11/17/24 Unkno wn History cholecalciferol (vitamin D3) 50 50 mcg PO DAILY Unknown History mcg (2,000 unit) capsule furosemide 20 mg tablet 20 mg PO DAILY 11/17/24 Unkn own History Allergy/AdvReac Type Severity Reaction Status Date / Time No Known Allergies Allergy Verified 11/17/24 12:43 Surgical History History of partial hysterectomy History of bladder suspension procedure History of appendectomy History of cholecystectomy H/O hernia repair Social History household members: none Smoking Status: Former smoker substance use type: does not use EXAM Physical Exam Const Vital Signs: 11/17/24 12:42 11/17/24 12:42 11/17/24 12:51 Temperature 98.3 F Temperature Source Oral Pulse Rate 76 66 Respiratory Rate 13 9 L Blood Pressure 88/62 L 83/61 L Blood Pressure Mean 70 68 Pulse Ox 83 79 94 Oxygen Delivery Method Room Air Nasal Cannula Nasal Cannula Oxygen Flow Rate (L/min) 2 4 11/17/24 14:29 11/17/24 15:00 11/17/24 15:06 Temperature 98.6 F Temperature Source Oral Pulse Rate 56 L 63 61 Respiratory Rate 8 L 17 16 Blood Pressure 77/42 L 86/60 L 86/60 L Blood Pressure Mean 53 68 68 Pulse Ox 95 97 Oxygen Delivery Method Nasal Cannula Oxygen Flow Rate (L/min) 2 3 11/17/24 15:17 11/17/24 15:43 11/17/24 15:57 Temperature Temperature Source Pulse Rate 59 L 78 63 Respiratory Rate 17 16 11 L Blood Pressure 86/60 L 93/38 L 109/58 L Blood Pressure Mean 68 56 75 Pulse Ox 95 93 95 Oxygen Delivery Method Nasal Cannula Nasal Cannula Oxygen Flow Rate (L/min) 3 2 3 11/17/24 16:36 11/17/24 16:38 Temperature 98.8 F 98.8 F Temperature Source Oral Pulse Rate 69 63 Respiratory Rate 17 10 L Blood Pressure 88/69 L 88/69 L Blood Pressure Mean 75 75 Pulse Ox 93 95 Oxygen Delivery Method Nasal Cannula Oxygen Flow Rate (L/min) MDM MDM MDM Narrative Medical decision making narrative: HISTORY OF PRESENT ILLNESS: Chief complaint: Right hip pain 84-year-old female presents with right hip pain. She notes to have difficulty ambulating and so she has not been eating and drinking well as result. She denies chest pain or shortness of breath. Denies abdominal pain. No severe ripping or tearing pain. No vomiting. No diarrhea. No recent cough. REVIEW OF SYSTEMS: Pertinent positives: right hip pain Pertinent negatives: Shortness of breath, chest pain, vomiting PHYSICAL EXAM: Nursing triage notes reviewed, Vital signs reviewed Constitutional: please see mdm HENT: MMM Eyes: Pupils equal round and reactive to light, Extraocular muscles intact Neck: No stridor, no JVD, full neck ROM Lungs: Clear to auscultation, No wheezing or rales. No increased work of breathing, no conversational dyspnea, no accessory muscle use, no nasal flaring. No respiratory distress noted Heart: Regular rate and rhythm, No murmurs, No rubs and No gallops, 2+ distal pulses (radial, femoral, posterior tibial) in all extremities Abdomen: Soft, there is no tenderness, rigidity, rebound or guarding, no obvious peritoneal signs, no palpable pulsatile abdominal masses, no auscultated abdominal bruit : No CVAT Extremities: No edema, TTP over right hip, limited range of motion secondary to pain, intact quadriceps tendon complex, right leg appears slightly longer than left although patient complains mostly of right hip pain. No obvious deformity noted. No bruising or signs of trauma noted. Neuro: No new focal neurological deficits, cranial nerves II through XII intact, 5/5 strength in all present extremities. Intact sensation to light touch in all present extremities, 2+ reflexes bilateral patella tendons. Back: No midline step-offs deformities to the lumbar spine. Skin: No rash or lesions noted, no sacral decubitus ulcers MEDICAL DECISION MAKING: Chief Complaint: please see HPI External records reviewed: Reviewed medications Factors affecting care: GERD, COPD (on 2 L as needed at home) Social determinants of health: Elderly History obtained from others: EMS Consults: Social work, internal medicine MDM Narrative: Patient was initially hypotensive, hypoxic with severe right hip pain. Exam within alert frail-appearing elderly female with severe right hip pain. Heart and lungs were clear abdomen was soft and nontender. She has symmetric pulses in all 4 extremities. She had sensation intact in all 4 extremities. No lateralizing neurologic deficits. I considered the following differential diagnosis: Dehydration, rhabdomyolysis, PE, ACS, arrhythmia, anemia, electrolyte disturbance, dehydration, CHF exacerbation IV O2 monitor placed. Patient was initially resuscitated 1 L normal saline I obtained a broad lab and imaging workup to further elucidate the etiology of the patient's complaints ALL IMAGES (IF OBTAINED) HAVE BEEN PERSONALLY REVIEWED AND INTERPRETED BY MYSELF. Chest x-ray was read reviewed person by myself showed evidence of multifocal pn eumonia. Radiology reviewed my interpretation. EKG with rate controlled A-fib at 64 bpm, normal axis, QTc 458, no ischemic changes noted Initial troponin grossly elevated consistent with myocardial ischemia. I suspect this is a type II demand ischemia given hypoxia, hypotension and NAT BNP elevated consistent with increase ventricular stretch. Physical exam without signs of volume overload. Lungs without evidence of pulmonary edema. BMP without significant [place] normalities, there is elevation anion gap as well as severe NAT (I considered obtaining advanced imaging of the chest including CTA given hypotension and hypoxia to rule out PE but given severe renal dysfunction and signs of pneumonia I thought the CT scan with contrast was not prudent at this time) Initial lactate elevated consistent with endorgan hypoperfusion LFTs are also elevated consistent with endorgan hypoperfusion Urinalysis shows no evidence of urinary inflammation suggestive of UTI During the patient's ED course she received a 30 cc/kg bolus however her blood pressure not respond appropriately. Concern for septic shock given elevated white blood cell count hypoxia and signs of pneumonia on initial chest x-ray. Given patient did not respond to initial IV fluid bolus patient was started on peripheral Levophed. Preparations were made for central line. Please see below procedure note. Procedure: Central line placement. Indication: Venous Access Consent: verbal. Risks of bleeding, infection, and pneumothorax were explained. A time out was completed. Maximal sterile barrier technique was used including cap, gown, sterile gloves, large sheet, hand washing and chlorhexidine prep. Anesthesia: The area anesthetized with 1% lidocaine. Procedure: The right internal jugular vein was punctured with a 19 gauge finder needle, then a wire introducer was placed, a 7 Welsh triple lumen catheter was placed using Seldinger technique. There were no complications. Blood return was low pressure and non-pulsatile dark blood. Line secured in place with suture, and a sterile bio-occlusive dressing was applied. Patient tolerated procedure well. The procedure was performed by Reza Pedraza DO The patient and/or family, caregivers express understanding. The patient and/or family, caregivers agrees with the plan. Shared decision making: I will have a discussion with the patient and or visitors regarding risk/benefits of further testing or admission. They will be made aware of of the risk/benefits inherent in this decision they will be given the opportunity to voice understanding. Total critical care time today provided was at least 60 minutes. This excludes separately billable procedures. Critical care time (if documented) is secondary to the patient having high probability of clinically significant/life threatening deterioration in the patient's condition which required my urgent intervention. Impression: 1. Septic shock 2. Community-acquired pneumonia 3. Acute kidney injury 4. Elevated troponin 5. Leukocytosis Dispo: Admit to ICU This note was generated with [employer] dictation software. It may contain incorrect words, spelling, and punctuation that were not noted in review of the chart prior to signing. Lab Data Labs: Laboratory Results - last 24 hr 11/17/24 11/17/24 11/17/24 12:45 13:37 15:15 WBC 21.2 H RBC 5.44 H Hgb 17.7 H Hct 56.6 H MCV 104.0 H MCH 32.5 H MCHC 31.3 L RDW Std Deviation 53.3 H RDW Coeff of Mildred 13.7 Plt Count 272 MPV 11.0 Immature Gran % (Auto) 0.700 Neut % (Auto) 85.3 H Lymph % (Auto) 6.2 L [place] % (Auto) 7.5 Eos % (Auto) 0.0 Baso % (Auto) 0.3 Absolute Neuts (auto) 18.1 H Absolute Lymphs (auto) 1.32 Nucleated RBC % 0 Diff Path Review May foll Sodium 142 Potassium 5.1 Chloride 102 Carbon Dioxide 21.9 Anion Gap 18 H BUN 45 H Creatinine 2.45 H Estim Creat Clear Calc 15.17 L Est GFR (MDRD) Non-Af 19 L BUN/Creatinine Ratio 18.2 Glucose 160 H Lactic Acid 4.1 H* Calcium 9.6 Total Bilirubin 1.19 AST 474 H ALT 435 H Alkaline Phosphatase 168 H Troponin T High Sens 482 H* Troponin T Hi Sens 2 Hr 441 H* [place] [address] H Total Protein 7.3 Albumin 3.7 Globulin 3.6 Albumin/Globulin Ratio 1.0 Urine Color Yellow Urine Clarity Sl. Cloudy Urine pH 6.0 Ur Specific Harvey 1.020 Urine Protein 30 H Urine Glucose (UA) Normal Urine Ketones 15 H Urine Occult Blood 10 H Urine Nitrite Negative Urine Bilirubin Negative Urine Urobilinogen 1 H Ur Leukocyte Esterase 25 H Urine RBC 0 SEEN Urine WBC 0-5 SEEN Ur Squamous Epith Cells 0-5 SEEN Urine Bacteria 0 SEEN Urine Mucus 0 SEEN Radiography Diagnostic Testing: Clinical Impression(s) from Imaging Studies Chest X-Ray 11/17/24 15:21 IMPRESSION: 1. Bilateral airspace opacities, compatible with pneumonitis/pneumonia. 2. Moderate cardiomegaly. 3. Slight increased size of a right midlung pulmonary nodule, previously characterized as a granuloma. Without access to patient chart, this diagnosis can not be confirmed. Correlation with patient's chart recommended and possible outpatient nonemergent CT chest could be obtained for further characterization if clinically indicated, not recently performed and/or inability to confirm benign pathology. Reading Location: [facility] Hip/Pelvis X-Ray 11/17/24 15:21 IMPRESSION: DEGENERATIVE OSTEOARTHROSIS. NO ACUTE FINDINGS. Reading Location: [facility] Discharge Plan Disposition Disposition: Acute Care Hospital [facility] Discharge Date/Time: 11/17/24 17:45
[2024-11-17] MEDS: 0.9% Normal Saline (500mL Bag) 500 ML 1000 ML IV (13:00)
--- NOTE | 2024-11-17 13:02 | EKG12_ITS ---
Test Reason : GENERAL Blood Pressure : */* mmHG Vent. Rate : 64 BPM Atrial Rate : * BPM P-R Int : * ms QRS Dur : 80 ms QT Int : 444 ms P-R-T Axes : * 38 -12 degrees QTcB Int : 458 ms Atrial fibrillation with a competing junctional pacemaker Abnormal ECG Confirmed by MARIBELL POLANCO, ENIO ([id number]), editorial assistant NABEEL GILLIS ([id number]) on 11/19/2024 8:27:37 AM Referred By: Confirmed By: ENIO REYNA MD
[2024-11-17] MEDS: Morphine 4 MG/ML Syringe IV (13:16)
[2024-11-17] MEDS: Ondansetron 4 MG/2 ML Vial IV (13:16)
[2024-11-17] MEDS: Ketorolac 15 MG/ML Vial IV (13:16)
[2024-11-17 13:17] LABS: Absolute Lymphocyte Count 1.32 X10^3/uL (0.83-4.51); Absolute Neutrophil Count 18.1 X10^3/uL (2.0-7.7); Basophil# 0.07 X10^3/uL; Basophil% 0.3 % (0-1); Hemoglobin 17.7 g/dL (12.0-15.0); Lymphocyte # 1.32 X10^3/ul (0.83-4.51); Lymphocyte % 6.2 % (19-41); Mean Corp Hgb Conc 31.3 g/dL (32-36); Mean Corpuscular Hgb 32.5 pg (27.0-32.0); Monocyte% 7.5 % (0-10); NRBC Flagged by Analyzer 0 % (0-5); Neutrophil # 18.09 X10^3/uL (2.7-7.7); Neutrophil % 85.3 % (47-70); POSITIVE DIFFERENTIAL YES; Platelet Count 272 K/mm3 (150-450); RBC Distribution Width CV 13.7 % (11.6-14.6); RBC Distribution Width SD 53.3 fl (35.1-43.9); Red Blood Count 5.44 M/mm3 (4.2-5.4); White Blood Count 21.2 K/mm3 (4.4-11.0)
[2024-11-17 13:18] LABS: Differential Indicated SCAN CRITERIA MET; Hematocrit 56.6 % (37-47)
[2024-11-17 13:34] LABS: AST(SGOT) 474 U/L (<=31); Alanine Aminotransfer ALT/SGPT 435 U/L (<=34); Albumin, Serum 3.7 g/dL (3.4-4.8); Alkaline Phosphatase 168 U/L (35-104); Anion Gap 18 (5-15); BUN 45 mg/dL (4-19); BUN/Creat Ratio 18.2 RATIO (10-20); Calcium,Total 9.6 mg/dL (7.6-11.0); Carbon Dioxide 21.9 mmol/L (21.0-32.0); Chloride 102 mmol/L (98-108); Creatinine, Serum 2.45 mg/dL (0.70-1.20); EST Glomerular Filtration Rate 19 (>60); Estimated Creatinine Clearance 15.17 ml/min (50-250); Globulin 3.6 g/dL (2.2-4.2); Glucose 160 mg/dL (70-99); Potassium 5.1 mmol/L (3.3-5.1); Protein, Total 7.3 g/dL (5.9-8.4); Sodium Level 142 mmol/L (133-145); Total Bilirubin 1.19 mg/dL (0.00-1.30)
--- NOTE | 2024-11-17 13:35 | CASEMGMT ---
Care Management Face to Face with patient for initial transition planning/care coordination assessment in the ED.? This manual writer introduced self and role at [facility]. Patient alert and oriented. Patient willing to participate in assessment and is able to answer all questions appropriately.? Care providers, pharmacy, and demographics verified. Admitting Diagnosis: Septic Shock, Pneumonia, NAT, elevated Troponin and Leukocytosis. Other diagnosis history: Including but may not be limited to: Shingles, Psoriatic Arthritis, COPD and A-fib. PCP: Dr. Nisa Michel Specialists: Pain Management: Dr. Hall Preferred Pharmacy: [facility] Insurance: [facility]; Medicare Dual Complete Prescription Benefit: Yes Living Will/HPOA: ?Yes; not on file, psychologist social requested copy. LNOK: Patient?s , and 2 sons, one of whom lives local and the other who resides in [place]. Living Arrangements: Patient lives in a double-wide mobile home with her . Patient stated there are 5 steps to get in/out of her home that are very difficult for patient to get up and down.? Patient did say that she has a handrail she can hold onto when going up/down the stairs. Transportation: Patient drives and stated if she?s not feeling well, her son provides transportation when needed. DME: Oxygen (patient unable to remember the name of the supplies; stated it?s [place]-based), 2L, PRN according to patient. Grab bar by shower, standard cane, standard walker, shower chair and RTS. HHC: Yes; patient stated she currently has through [facility], believes it to be PT. Patient stated Angela and Chen work with her and do ?stretches?. SNF/Rehab: Denied any previous SNF/Rehab. admissions. Community Resources: Denied Behavioral Health History: Depression. Patient reported she was on medication for depression at one time however stopped taking it because it caused headaches. Patient stated she would like to try a different kind. Patient goals: Patient wishes to discharge home when medically ready. Disposition Plan: Admission to acute; RN CM/SW to follow for discharge planning needs that may arise. It should be noted that patient has been providing care for her including helping patient manage/monitor blood sugar and insulin. Patient prepares meals for her and also helps with self-care/dressing. Patient stated at this time, she is not able to do that. Patient stated her son who lives locally is aware she is in the hospital and is able to help take care of her while she is here.? Patient likely to need help once she is discharged home. Dania Shields, DEVELOPMENT EDUCATOR, JOURNEYMAN [employer]TERN[employer]
[2024-11-17 13:37] LABS: Pro- Brain NATRIURETIC PEPTIDE 21948 pg/mL (<=1800); Troponin T High Sensitivity 482 ng/L (<=14)
[2024-11-17 13:41] LABS: Pathologist Review May foll
[2024-11-17 13:52] LABS: Bacteria 0 SEEN /hpf (None Seen); Mucous, Urine 0 SEEN /hpf (<or=2+); Red Blood Cells-Urine 0 SEEN /hpf (0-5)
[2024-11-17 13:53] LABS: Color, Urine Yellow (Yellow); Glucose, Dipstick Normal (Normal); Ketone-Dipstick 15 mg/dl (Negative); Leukocyte Esterase-Dipstick 25 /ul (Negative); Nitrite-Dipstick Negative (Negative); Occult Blood-Urine 10 /ul (Negative); Protein-Dipstick 30 mg/dl (Negative); Urine Bilirubin Dipstick Negative (Negative); Urine Clarity Sl. Cloudy (Clear); Urine Urobilinogen 1 mg/dl (Normal)
[2024-11-17] MEDS: Piperacil/Tazobactam 4.5 GM in 0.9% Normal Saline (100mL MB+) 100 ML IV (13:54)
[2024-11-17 14:00] LABS: Squamous Epithelial Cells - UA 0-5 SEEN /hpf (5-10); White Blood Cells 0-5 SEEN /hpf (0-5)
[2024-11-17] MEDS: Norepinephrine 8 MG in 0.9% Normal Saline (250mL Bag) 242 ML 9.4 MG CONT INF (14:29)
[2024-11-17] MEDS: Vancomycin HCl 1,750 MG in 0.9% Normal Saline (500mL Bag) 500 ML 250 MG IV (15:00)
[2024-11-17] MEDS: Lactated Ringers 1,000 ML 999 ML IV ×2 (15:06→16:00)
--- NOTE | 2024-11-17 15:21 | RAD_ITS ---
PROCEDURE: CHEST 1 VIEW (PORTABLE) 11/17/2024 REASON FOR EXAM: 84-year-old female, SEPSIS TECHNIQUE: Frontal view of the chest. COMPARISON: Chest radiograph 04/08/2024. FINDINGS: Hardware: Stable right reverse total shoulder arthroplasty. Interval placement of a partially visualized right IJ central venous catheter with tip terminating in the right atrium. Heart: Moderate cardiomegaly with pulmonary vascular congestion. Lungs: Increased size of a right mid lung zone pulmonary nodule measuring 1.5 cm, previously 1.3 cm. Diffuse bilateral airspace opacities. No pleural effusion or pneumothorax. Bones: Degenerative changes are identified within the thoracic spine. RAD/Chest 1 View (Portable) IMPRESSION: 1. Bilateral airspace opacities, compatible with pneumonitis/pneumonia. 2. Moderate cardiomegaly. 3. Slight increased size of a right midlung pulmonary nodule, previously charac terized as a granuloma. Without access to patient chart, this diagnosis can not be confirmed. Correlation with patient's chart r ecommended and possible outpatient nonemergent CT chest could be obtained for further characterization if clinically indicated, n ot recently performed and/or inability to confirm benign pathology. Reading Location: [id number]
--- NOTE | 2024-11-17 15:21 | RAD_ITS ---
PROCEDURE: HIP, UNI W/ PELVIS 2-3 VIEWS 11/17/2024 REASON FOR EXAM: 84-year-old female, HIP PAIN TECHNIQUE: Two views of the right hip with AP pelvis. COMPARISON: None. FINDINGS: Bones: Diffuse osseous demineralization. No acute fracture. No aggressive osseous lesions. Joints: Mild right and moderate left hip arthrosis. Moderate bilateral SI joint arthrosis. Soft tissues: Soft tissues are unremarkable. Other: Multiple surgical anchors along the lower abdomen, likely from prior hernia mesh repair. RAD/HIP, UNI W/ Pelvis 2-3 Views IMPRESSION: DEGENERATIVE OSTEOARTHROSIS. NO ACUTE FINDINGS. Reading Location: [id number]
[2024-11-17 16:13] LABS: Troponin T High Sens 2 HR 441 ng/L (<=14)
--- NOTE | 2024-11-17 16:40 | PCM.HP.STD ---
HPI - General General Date of Admission: 11/17/24 Date of Service: 11/17/24 Chief Complaint: Poor PO, nausea HPI Narrative LESLI ROSALES, is a an 84-year-old female with history of A-fib, psoriatic arthritis, COPD who presented [facility] ED 11/17/2024 with right hip pain with some difficulty ambulating with poor p.o. intake. In the ED patient initially with blood pressure of 88/62 and pulse ox 83 percent on room air. Patient's BMP shows elevated creatinine of 2.45, suspect NAT given previous creatinines were in the 0.7 range though it has been several years since there have been any available in our system. Patient also has elevated AST and ALT of 474 and 435 respectively. Patient has BNP of nearly 22,000 and a troponin of 482. White blood cell count of 21.2 with a hemoglobin documented at 17.7 and lactic acid of 4.1. Patient given IV fluids and broad-spectrum antibiotics for presumed sepsis and remained hypotensive so patient had right IJ placed and was started on norepinephrine. Broad cultures obtained. UA not consistent with UTI, chest x-ray did not demonstrate changes concerning for pneumonia however. Hospitalist contacted for admission for septic shock secondary to community-acquired pneumonia. Patient evaluated at bedside and reports that for the last couple of days she has felt poor in general and has not been eating or drinking, reports that today she became very nauseous and started having jerking movements and also had a lot of loose stool prompting her to come to the ED. When asking about her hip pain she reports that she helped get her up after he fell a couple months ago and hurt her back and hips, she went to the ED at that time at an outlying facility and was told she pulled her lower back muscles, since that time she has had low back pain and bilateral hip pain sometimes more on the right sometimes more on the left sometimes both and does not note that it is necessarily changed over the past couple days it is just also bothersome to her. Denies any fevers at home, said she does get short of breath but does not note necessarily any new episodes, does not note any significant coughing, no abdominal pain or changes in urination, does report large-volume loose stool earlier today which is abnormal for her, had not occurred prior. [facility] Medical History (Updated 11/17/24 @ 16:[address] Elsy Perdomo MD) A-fib COPD (chronic obstructive pulmonary disease) Psoriatic arthritis Shingles Home Medications ?Medication ?Instructions ?Recorded ?Last Taken ?Type atenolol 25 mg tablet 25 mg PO DAILY 06/26/21 Unknown History famotidine 20 mg tablet 20 mg PO DAILY 06/26/21 Unknown History folic acid 1 mg tablet 1 mg PO DAILY 06/26/21 Unknown History ipratropium bromide 0.02 % 2 ml inhalation DAILY 06/26/21 Unknown History solution for inhalation rivaroxaban 20 mg tablet (Xarelto) 20 mg PO DAILY 06/26/21 Unknown History amitriptyline 25 mg tablet 25 mg PO QHS 11/17/24 Unknown History cholecalciferol (vitamin D3) 50 50 mcg PO DAILY 11/17/24 Unknown History mcg (2,000 unit) capsule furosemide 20 mg tablet 20 mg PO DAILY 11/17/24 Unknown History Allergy/AdvReac Type Severity Reaction Status Date / Time No Known Allergies Allergy Verified 11/17/24 12:43 Surgical History H/O hernia repair History of appendectomy History of bladder suspension procedure History of cholecystectomy History of partial hysterectomy Social History household members: none Smoking Status: Former smoker substance use type: does not use ROS ROS Narrative General: Denies fever/chills HENT: Little bit of intermittent frontal headache, denies stuffy nose, denies sore throat EYES: Denies changes in vision Resp: Has some chronic shortness of breath, no specific cough Cardiac: Denies chest pain GI: Denies abdominal pain, had diarrhea today, additional endorses nausea earlier today, very poor p.o. intake for the past several days : Denies changes in urination Extremity: Denies swelling MSK: Feels little bit weak all over and has chronic hip pain Neuro: Denies any numbness/tingling Heme: Denies any bleeding or bruising Skin: Denies rashes Psychiatric: No complaints voiced Vital Signs Vital Signs Vital Signs: 11/17/24 12:42 11/17/24 12:42 11/17/24 12:51 Temperature 98.3 F Temperature Source Oral Pulse Rate 76 66 Respiratory Rate 13 9 L Blood Pressure 88/62 L 83/61 L Blood Pressure Mean 70 68 Pulse Ox 83 79 94 Oxygen Delivery Method Room Air Nasal Cannula Nasal Cannula Oxygen Flow Rate (L/min) 2 4 11/17/24 14:29 11/17/24 15:00 11/17/24 15:06 Temperature 98.6 F Temperature Source Oral Pulse Rate 56 L 63 61 Respiratory Rate 8 L 17 16 Blood Pressure 77/42 L 86/60 L 86/60 L Blood Pressure Mean 53 68 68 Pulse Ox 95 97 Oxygen Delivery Method Nasal Cannula Oxygen Flow Rate (L/min) 2 3 11/17/24 15:17 11/17/24 15:43 11/17/24 15:57 Temperature Temperature Source Pulse Rate 59 L 78 63 Respiratory Rate 17 16 11 L Blood Pressure 86/60 L 93/38 L 109/58 L Blood Pressure Mean 68 56 75 Pulse Ox 95 93 95 Oxygen Delivery Method Nasal Cannula Nasal Cannula Oxygen Flow Rate (L/min) 3 2 3 11/17/24 16:36 11/17/24 16:38 Temperature 98.8 F 98.8 F Temperature Source Oral Pulse Rate 69 63 Respiratory Rate 17 10 L Blood Pressure 88/69 L 88/69 L Blood Pressure Mean 75 75 Pulse Ox 93 95 Oxygen Delivery Method Nasal Cannula Oxygen Flow Rate (L/min) Weight Weight: 69.8 kg Body Mass Index (BMI) 30.0 Physical Exam Narrative General: Alert, oriented, no apparent distress HEENT: Atraumatic, normocephalic Eyes: Anicteric, normal conjunctiva, extraocular movements grossly intact Neck: Supple Respiratory: Coarse bilaterally, normal respiratory effort Cardiovascular: Regular rate and rhythm GI: Soft, has a little bit of tenderness in random spots on abdomen without necessarily being able to really create this or reproduce this, no rebound, guarding, rigidity Extremities: No edema Musculoskeletal: Moving all extremities Neuro: No overt focal neurological deficits Skin: No rashes appreciated Psych: Cooperative Results Lab / Micro Data 11/17/24 12:45 11/17/24 12:45 Labs: Laboratory Results - last 24 hr 11/17/24 12:45: WBC 21.2 H, RBC 5.44 H, Hgb 17.7 H, Hct 56.6 H, MCV 104.0 H, MCH 32.5 H, MCHC 31.3 L, RDW Std Deviation 53.3 H, RDW Coeff of Mildred 13.7, Plt Count 272, MPV 11.0, Immature Gran % (Auto) 0.700, Neut % (Auto) 85.3 H, Lymph % (Auto) 6.2 L, Gentry % (Auto) 7.5, Eos % (Auto) 0.0, Baso % (Auto) 0.3, Absolute Neuts (auto) 18.1 H, Absolute Lymphs (auto) 1.32, Nucleated RBC % 0, Diff Path Review December, Sodium 142, Potassium 5.1, Chloride 102, Carbon Dioxide 21.9, Anion Gap 18 H, BUN 45 H, Creatinine 2.45 H, Estim Creat Clear Calc 15.17 L, Est GFR (MDRD) Non-Af 19 L, BUN/Creatinine Ratio 18.2, Glucose 160 H, Lactic Acid 4.1 H*, Calcium 9.6, Total Bilirubin 1.19, AST 474 H, ALT 435 H, Alkaline Phosphatase 168 H, Troponin T High Sens 482 H*, [place] [address] H, Total Protein 7.3, Albumin 3.7, Globulin 3.6, Albumin/Globulin Ratio 1.0 11/17/24 13:37: Urine Color Yellow, Urine Clarity Sl. Cloudy, Urine pH 6.0, Ur Specific Bradley 1.020, Urine Protein 30 H, Urine Glucose (UA) Normal, Urine Ketones 15 H, Urine Occult Blood 10 H, Urine Nitrite Negative, Urine Bilirubin Negative, Urine Urobilinogen 1 H, Ur Leukocyte Esterase 25 H, Urine RBC 0 SEEN, Urine WBC 0-5 SEEN, Ur Squamous Epith Cells 0-5 SEEN, Urine Bacteria 0 SEEN, Urine Mucus 0 SEEN 11/17/24 15:15: Troponin T Hi Sens 2 Hr 441 H* Micro: Microbiology 11/17/24 13:20 Mucosa - Nose SARS-CoV-2, Influenza & RSV (PCR) - Final Imaging Radiology Impression Chest X-Ray 11/17/24 15:21 IMPRESSION: 1. Bilateral airspace opacities, compatible with pneumonitis/pneumonia. 2. Moderate cardiomegaly. 3. Slight increased size of a right midlung pulmonary nodule, previously characterized as a granuloma. Without access to patient chart, this diagnosis can not be confirmed. Correlation with patient's chart recommended and possible outpatient nonemergent CT chest could be obtained for further characterization if clinically indicated, not recently performed and/or inability to confirm benign pathology. Reading Location: [facility] Hip/Pelvis X-Ray 11/17/24 15:21 IMPRESSION: DEGENERATIVE OSTEOARTHROSIS. NO ACUTE FINDINGS. Reading Location: [facility] Assessment & Plan Assessment/Plan (1) Septic shock: PLAN: Plan # Septic shock suspect secondary to pneumonia -Patient hypotensive with blood pressure of 88/62 ultimately not responsive to IV fluids requiring pressor support -Additionally patient hypoxic at 83% on room air and has creatinine which is suspected to be elevated from baseline at 2.45 with previous values around 0.7 -White blood cell count noted to be 21.2 with a lactic acid of 14.1 -BNP nearly 22,000, troponin 482 and patient with elevated liver function tests as well, suspect this is secondary to her hypotension and hypoxia -Patient fluid resuscitated but requiring Levophed -Pancultures -UA not suggestive of UTI -Chest x-ray suggestive of pneumonia -DuoNebs and as needed albuterol -Sputum culture, COVID ordered, respiratory panel ordered -Urine antigens -Mucinex, I/S -Will also check stool studies given patient's nausea and diarrhea, denies any significant abdominal pain -Patient's imaging concerning for pneumonia but patient denies any significant changes in respiratory status or cough and given significance of patient's illness we will start broad-spectrum antibiotics and narrow as able as further results available and workup underway # Hypoxia with new O2 requirement suspect secondary to pneumonia -X-ray compatible with pneumonia -Management as above -Patient does not appear to be clinically overloaded even with elevated BNP patient denies any swelling or other concerns but does appear she is on home Lasix -Given her dry mucous membranes and significant volume depletion given very poor p.o. intake and suspected kidney failure will hold this for now but carefully monitor daily weights and I's and O's with low threshold to resume once patient stable -Continuing IV fluids however will run maintenance for 1 more liter, and this can be reevaluated if patient needs further fluids # Nausea and episode of diarrhea -Unclear if this is due to patient's dehydration and uremia or if there could be other etiology -Supportive care -IV fluids -Will check stool studies -Patient without impressive abdominal exam so this was not scanned, pending further workup and clinical course could consider scanning the abdomen however given lack of significant exam findings we will hold off acutely # Bilateral hip pain -Patient reports hip pain for months after trying to pick her up off the ground with help -Sometimes will have pain more on the right, sometimes more on the left and sometimes both sides, does not note anything specific necessarily occurred today or that this is changed over the past couple of days it is just an additional problem -Pain control as blood pressure allows -Hip/pelvis x-ray with degenerative osteoarthrosis -Given patient's report of also lower back pain and that this all occurred after trying to lift her up could consider further imaging with CT or MRI of lumbar spine and hips pending clinical progress, patient is stable could always consider this on an outpatient basis -PT/OT # Elevated troponin -Patient with elevated troponin of 482 and proBNP of nearly 22,000, suspect that this is part of the endorgan damage from her septic shock. -Treat underlying etiology -Repeat troponin did downtrend # Suspected NAT -Creatinine 2.45 with baseline seemingly around 0.7 -Suspect this is due to patient's septic shock/systemic illness -IV fluids, monitor I's and O's -Avoid nephrotoxic agents # Elevated liver function tests -Suspect shock liver given patient's hypotension and approximately -Fluid resuscitation -Will trend -Avoid hepatotoxic agents #Hx pafib -On xeralto and atenolol at home -Holding atenolol given hypotension #Hypertension -Holding home antihypertensives # Patient with history of psoriatic arthritis -On Skyrizi every 3 month self injection #GERD -Continue home famotidine #DVT ppx: Patient fully anticoagulated Elsy Perdomo MD Time spent in the patient's overall evaluation,decision-making process, review of diagnostic data, adjustment of management, discussion with other providers, nursing nursing and ancillary staff involved in patient's care documentation, 78 Minutes Charges/Coding Visit Charges Inpatient E&M: 19492 Init Hosp L3
[2024-11-17 17:12] LABS: Reflex Lactate? Y
--- NOTE | 2024-11-17 17:28 | ED.RN ---
patients son seth updated- Pt will be in ICU room 4. still on medication to help her blood pressure. no further questions. Seth states pts niece will be there soon to visit her.
[2024-11-17 17:42] LABS: Troponin T High Sens 4 HR 407 ng/L (<=14)
[2024-11-17] MEDS: 0.9% Normal Saline (1000mL) 1,000 ML 75 ML IV (18:09)
--- NOTE | 2024-11-17 18:13 | CASEMGMT ---
Social Work: rattan worker made phone contact with patient's son Seth who reported he's the son who lives in [place] and is 5 hours away. He stated he is aware his mother is in the hospital and is being admitted and stated his niece Anna will be coming to the hospital this evening and has taken tomorrow off of work to help care for patient's . He is not sure how much time she will be able to take off of work to help out. Seth stated he does not have an address or phone number for his brother Hardik. rattan worker to follow up with Anna. Dania Shields, OUTGOING INSPECTOR, FREEZER OPERATOR
[2024-11-17] MEDS: oxyCODONE 5 MG Tablet 2.5 MG PO (18:14)
--- NOTE | 2024-11-17 18:18 | PCM.RX.CS ---
Consult Antibiotic Management Pharmacy has been consulted to manage selected antibiotic: Vancomycin Type of Intervention Type of Consult: New start Suspected Infection Suspected Infection: Sepsis and Pneumonia Labs Labs: Sodium 142 mmol/L (133-145) 11/17/24 12:45 Potassium 5.1 mmol/L (3.3-5.1) 11/17/24 12:45 Chloride 102 mmol/L (98-108) 11/17/24 12:45 Carbon Dioxide 21.9 mmol/L (21.0-32.0) 11/17/24 12:45 Anion Gap 18 (5-15) H 11/17/24 12:45 BUN 45 mg/dL (4-19) H 11/17/24 12:45 Creatinine 2.45 mg/dL (0.70-1.20) H 11/17/24 12:45 Est GFR (MDRD) Non-Af 19 (>60) L 11/17/24 12:45 BUN/Creatinine Ratio 18.2 RATIO (10-20) 11/17/24 12:45 Glucose 160 mg/dL (70-99) H 11/17/24 12:45 Microbiology Microbiology: Microbiology 11/17/24 13:20 Mucosa - Nose SARS-CoV-2, Influenza & RSV (PCR) - Final Pharmacy Plan for Drug Dosing Pharmacy Plan for Drug Dosing: NEW START IV VANCOMYCIN Consulting Physician: Conor Indication: pneumonia/sepsis Goal Trough: 15-20 mg/dL SrCr: 2.45 mg/dL CrCl: 15.1 mL/min Comments: loading dose of 1750mg given in ER 11/17 @ 1500 Vancomycin Dose: Will not schedule dosing at this time as patient's CrCl is 15 mL/min. Will order a random level in 2 days and re-evaluate if scheduled dosing can be started. Pending Level: 11/19/24 @ 0600 - random Pharmacy Service will continue to monitor and adjust dosing as required.
--- NOTE | 2024-11-17 18:51 | CASEMGMT ---
Social Work: product development worker met with patient again to gain verbal consent to make phone contact with Anna which patient agreed to. Patient expressed a desire to ask Anna to be her POA. Unsuccessful phone contact with Anna . Director Product Safety left a message with her name and number and requested a return call. Dania Shields, GENERAL DUTY NURSE, SPANISH TRANSLATOR
[2024-11-17 18:58] LABS: Lactic Acid 2.3 mmol/L (0.0-2.0)
[2024-11-17] MEDS: Ipratropium/Albuterol Sulfate 3 ML AMPUL.NEB INHALATION (19:00)
--- NOTE | 2024-11-17 19:30 | CASEMGMT ---
Social Work: Patient's granddaughter(tray line worker previously told niece), Anna returned call to transition social worker. Anna stated she's been very concerned about patient and patient's for a while and stated her father (patient's son Hardik: [phone]) is not very helpful. Hardik is said to live just outside of [facility]. Anna stated patient's son Hardik has a history of theft and drug abuse and won't be a part of patient's treatment plan. Anna stated she is not sure Hardik if currently using drugs due to being on probation and having to submit to drug screens however stated everyone Hardik hangs around does drugs. Anna stated patient has been left to care for her with little to no help except for the support that she herself is able to provide. Anna stated patient's is very needy and dependant on patient and if patient makes him a hot meal, patient will be made to get up 5-6 times to get things for him and patient is just exhausted. Anna stated patient's has been abusing pain pills for over 50 years and takes all of patient's pain medication so patient doesn't get hardly any of her pain medications at all. Anna stated she did go over to the home of patient and left out enough pain pills for patient's that has been ordered and hid the rest. Anna stated both patient as well as patient's are in need of a Jail Facility placement and she doesn't know where to even begin. Patient's needs daily assistance with DM management in addition to his pain management issues. Anna stated patient's is able to ambulate to the bathroom for toileting however has a history of falls and also wouldn't be able to get out of his home by himself if needed. Anna stated she does not believe patient's is safe to be left home alone. Anna stated the paramedics were called as recent as two days ago due to patient's falling and patient not being able to get him up. Anna stated patient has helped up her from falls before and patient ended up injuring her back as a result. Since patient has been in the hospital, Anna stated she's been calling her grandpa every few hours to check on him to make sure he is doing ok and confirmed she is coming to the hospital this evening to check on patient and will go to patient's home afterwards to stay with patient's and make sure his blood sugar is ok. Anna stated she has a 9 year old daughter so she will have to travel back and forth and can do this for a week. Anna stated she normally visits patient and patient's every other week and takes patient out shopping and out to lunch. It appears as though patient and patient's may be in need of a SNF placement. Anna stated patient's will likely refuse to go because his pain medication will be monitored and he will likely go through withdraw. Anna also stated patient may not want to be from her . tray line worker will make a referral to Adult Protective Services to follow up. Dania Shields, MERCHANT POLICE, EDGER TECHNICIAN
[2024-11-17] MEDS: 0.9 % NaCl (Sterile) Posiflush 10 mL IV (20:03)
[2024-11-17] MEDS: Morphine 2 MG/ML Syringe IV (20:03)
--- NOTE | 2024-11-17 20:19 | CASEMGMT ---
Social Work: hide mill worker called Adult Protective Services and made a referral. Dania Shields, FULL TIME STAFF INTERPRETER, DAY LIGHT RELIEF OPERATOR
--- NOTE | 2024-11-17 20:40 | CT_ITS ---
PROCEDURE: CT CHEST, ABD, PELVIS WO CONT 11/17/2024 REASON FOR EXAM: SEPTIC SHOCK TECHNIQUE: Chest, abdomen and pelvis CT without intravenous contrast. Contiguous axial scans of 2.5 mm slice thicknesses. Sagittal and coronal reconstruction images were obtained. One or more dose reduction techniques were used (e.g., automated exposure control, adjustment of mA and/or kv according to patient size, use of iterative reconstruction technique). COMPARISON: Chest radiograph dated 11/17/2024. FINDINGS: CT CHEST: Lungs and Airways: The lungs are normally expanded and clear. Mild centrilobular emphysematous changes. Calcified granuloma in the anterior right upper lobe measuring 1.4 x 1.1 cm. Parenchymal scarring and/or hypoventilatory changes in the dependent lungs. Pleura: Small amount of pleural fluid layers dependently in the right goran thorax. Heart: [id number] cardiac enlargement Pericardium: No thickening. No pericardial effusion. Coronary arteries: Mild coronary artery calcifications. Thoracic Aorta: No thoracic aortic aneurysm or dissection. Pulmonary Vessels: No large central filling defects. Mediastinum: No mediastinal hilar or axillary lymphadenopathy. Thyroid:No nodules. Bones: A right total humeral arthroplasty. Multilevel spondylosis. Soft tissues: Unremarkable. CT ABDOMEN / PELVIS: Noncontrast technique limits evaluation of the abdominal and pelvic viscera. Liver: Unremarkable. Prominent common bile duct most likely compensatory due to cholecystectomy. Gallbladder: Surgically absent gallbladder. Spleen: Normal. Pancreas: Unremarkable. Adrenals: No masses or abnormal thickening. Kidneys: Unremarkable. Bladder: Balloon tip Coon catheter. Iatrogenic air. Reproductive Organs: Uterus surgically absent. Bowel: Unremarkable. Appendix: No signs of appendicitis. Lymph nodes: No suspicious adenopathy. Vasculature: Moderate to severe atherosclerotic calcific disease of the aortoiliac arteries. Peritoneum / Retroperitoneum: No free fluid. No masses. No free air. Anterior abdominal wall: Postoperative findings of the abdominopelvic wall anteriorly most likely from previous ventral hernia repair. Bones: Multilevel spondylosis and degenerative disc disease. Mild compression of the inferior endplates of L3 and L4. CT/CT Chest, Abd, Pelvis WO Cont IMPRESSION: 1. Right pleural effusion. 2. Right upper lobe calcified granuloma. 3. Mild centrilobular emphysematous changes. 4. Cardiac enlargement. 5. Chronic changes in the dependent lungs. 6. Total right humeral arthroplasty. 7. Status post cholecystectomy and hysterectomy.. 8. Balloon tip Coon catheter. 9. Atherosclerotic calcific disease of the aorta and iliac arteries. 10. Postoperative changes of the lower anterior abdominal wall. 11. Mild compression of the inferior endplates, L3 and L4 may be related to re mote trauma. Clinical correlation recommended. 12. Other nonacute findings detailed above. Reading Location: [facility]
--- NOTE | 2024-11-17 20:43 | ECHOCS_ITS ---
Reason For Study Reason For Study: Dyspnea/SOB Procedure This was a 2D Doppler, Color Flow transthoracic echocardiogram. Technically difficult study, patient scanned supine due to extreme pain when moving. Contrast injection was performed. Exam performed portable in ICU/CCU. Left Ventricle Normal LV size. The left ventricular ejection fraction is 60 %. No regional wall motion abnormalities noted. Right Ventricle Normal RV size. Normal systolic function. Atria The left atrium is severely enlarged. The right atrium is moderately enlarged. Mitral Valve Normal mitral valve. Tricuspid Valve Normal tricuspid valve. Mild (1+) tricuspid valve insufficiency. Pulmonary artery systolic pressure is 36 mmHg. Aortic Valve Trisinus/trileaflet aortic valve. Mild focal aortic valve calcification. Pulmonic Valve Normal pulmonic valve. Great Vessels Normal aortic root. The pulmonary artery is normal size. Inferior vena cava collapse with respiration. Pericardium/Pleural No pericardial effusion. Medication Diluted definity 1ml given slow IV push to enhance endocardial definition. MMode/2D Measurements & Calculations LVIDd: 4.0 cm IVSd: 1.1 cm LVOT diam: 1.9 cm LVIDs: 2.5 cm LVPWd: 0.90 cm RVDd: 4.3 cm FS: 38.2 % LVOT area: 2.8 cm2 Ao root diam: 3.0 cm LAV(MOD-bp): 110.3 ml LA A4 area: 31.4 cm2 LAV(MOD-bp) Indexed: 65.3 ml/m2 LAV(MOD-sp2): 98.5 ml LAV(MOD-sp4): 100.8 ml LA dimension(2D): 4.1 cm TAPSE: 1.4 cm RA A4 area: 24.6 cm2 Doppler Measurements & Calculations MV E max sreekanth: 108.5 cm/sec MV V2 max: 117.4 cm/sec Ao V2 max: 262.3 cm/sec MV max P.5 mmHg Ao max P.5 mmHg MV V2 mean: 65.3 cm/sec Ao V2 mean: 154.3 cm/sec MV mean P.1 mmHg Ao mean P.9 mmHg MV V2 VTI: 27.7 cm Ao V2 VTI: 43.4 cm MVA(VTI): 2.7 cm2 AV (velocity ratio): 0.60 SHIVAM(I,D): 1.7 cm2 SHIVAM(V,D): 1.5 cm2 LV V1 max: 137.7 cm/sec SV(LVOT): 73.4 ml PA V2 max: 120.2 cm/sec LV V1 max P.6 mmHg LV V1 mean P.1 mmHg LV V1 mean: 94.1 cm/sec LV V1 VTI: 25.9 cm TR max sreekanth: 284.4 cm/sec TR max P.4 mmHg ECHO/Echo Complete W/ Contrast Interpretation Summary The left ventricular ejection fraction is 60 %. Normal LV size. The left atrium is severely enlarged. The right atrium is moderately enlarged. Mild (1+) tricuspid valve insufficiency. Ordering Physician: Lorna Salvador Performed By: Edi David RCS
--- NOTE | 2024-11-17 20:44 | CON.PCM.CC_ITS ---
HPI Consult Data Date of Consult: 11/17/24 HPI Narrative HPI Narrative: 84y/o F w. Afib on eliquis, COPD on home O2 2L reports 2 months of pain in her back and hips after assisting her up after falling. She reports she has seen her PCP and pain doctor for this, XR done without significant pathology. She called ambulance today because pain had become severe over her whole body as well as weakness and fatigue and poor PO intake x2 days. She had 1 episode of diarrhea today after no BM for several days. SHe also noted feeling SOB. She denied any fever, chills, MCHUGH, sore throat, chest pain, cough, n/v or RYAN. In the ED she was noted to have hypotension hypoxia, leukocytosis. She was given sepsis bolus, broad spectrum abx and started on Levophed for refractory hypotension. On my eval she is on Levophed at 20mcg/min, 2 L NC. She received 4 mg of Morphine 30 min prior and reports pain has improved. [facility] Medical History (Updated 11/17/24 @ 18:37 by Mindy Tierney) Anxiety Depression Chronic pain GERD (gastroesophageal reflux disease) On home oxygen therapy Atrial fibrillation Congestive heart failure (CHF) Hypertension Shingles Psoriatic arthritis COPD (chronic obstructive pulmonary disease) A-fib Home Medications ?Medication ?Instructions ?Recorded ?Last Taken ?Type atenolol 25 mg tablet 25 mg PO DAILY 06/26/21 Unkn own History famotidine 20 mg tablet 20 mg PO DAILY 06/26/21 Unkn own History folic acid 1 mg tablet 1 mg PO DAILY 06/26/21 Unkno wn History ipratropium bromide 0.02 % 2 ml inhalation DAILY 06/26 Unknown History solution for inhalation rivaroxaban 20 mg tablet (Xarelto) 20 mg PO DAILY 02/08 Unknown History amitriptyline 25 mg tablet 25 mg PO QHS 11/17/24 Unkno wn History cholecalciferol (vitamin D3) 50 50 mcg PO DAILY Unknown History mcg (2,000 unit) capsule furosemide 20 mg tablet 20 mg PO DAILY 11/17/24 Unkn own History Allergy/AdvReac Type Severity Reaction Status Date / Time No Known Allergies Allergy Verified 11/17/24 12:43 Surgical History History of partial hysterectomy History of bladder suspension procedure History of appendectomy History of cholecystectomy H/O hernia repair Social History household members: none Smoking Status: Former smoker substance use type: does not use ROS ROS Narrative All systems reviewed and negative except per HPI Objective Data Objective Data Vital Signs: Vital Signs Last response 3 Temperature 37.2 C 11/17/24 20:00 Temperature Source Core 11/17/24 20:00 Pulse Rate 69 11/17/24 20:00 Respiratory Rate 14 11/17/24 20:00 Respiratory Effort Normal 11/17/24 18:00 Respiratory Depth Shallow 11/17/24 18:00 Respiratory Pattern Bradypnea 11/17/24 19:00 Blood Pressure 110/55 L 11/17/24 20:00 Blood Pressure Mean 73 11/17/24 20:00 Blood Pressure Source Monitor 11/17/24 20:00 Blood Pressure Position Supine 11/17/24 20:00 Blood Pressure Location Right Forearm 11/17/24 20:00 Pulse Ox 97 11/17/24 20:00 Oxygen Delivery Method Nasal Cannula 11/17/24 20:00 Oxygen Flow Rate (L/min) 2 11/17/24 20:00 I&O: I&O Last 24 Hours 3 11/16/24 11/17/24 11/17/24 23:59 11:59 23:59 Intake Total 3404.11 / 3404.11 Output Total Balance 3374.11 / 3374.11 I&O: Total Stay 3 11/17/24 12:41 thru 11/17/24 20:00 Intake Total 3404.11 Output Total 30 Balance 3374.11 Current Meds Ordered / Administered: Current meds ordered / Administered 3 Generic Name Dose Route Start Last Admin Trade Name Freq PRN Reason Stop Dose Admin Albuterol Sulfate 2.5 mg 11/17/24 17:50 Albuterol 2.5 Mg/3 Ml Vial.Neb. INHALATION Q2H PRN PRN SOB &/OR WHEEZING Albuterol/Ipratropium 3 ml 11/17/24 17:50 11/17/24 19:00 Ipratropium/Albuterol Sulfate 3 Ml Ampul.Neb INHALATION 3 ml Q6H.RT SUKHJINDER Administration Compound Med 3 click 11/17/24 22:00 Arthritis Pain Compound 60 Click Tube TOPICAL BID [facility] Protocol Famotidine 20 mg 11/18/24 10:00 Famotidine 20 Mg Tablet PO DAILY [facility] Guaifenesin 1,200 mg 11/17/24 22:00 Guaifenesin 1,200 Mg Tablet PO BID [facility] Norepinephrine Bitartrate 8 mg 250 mls @ 9.375 mls/hr 11/17/24 14:00 11/17/24 20:00 / Sodium Chloride CONT INF 20 mcg/min .[id number] SUKHJINDER 37.5 mls/hr Titration Protocol 5 MCG/MIN Sodium Chloride 1,000 mls @ 75 mls/hr 11/17/24 17:50 11/17/24 18:09 IV 11/18/24 07:09 75 mls/hr .[id number] SUKHJINDER Administration Piperacillin Sod/Tazobactam 50 mls @ 12.5 mls/hr 11/17/24 22:00 Sod 3.375 gm/ Sodium Chloride IV Q12 SUKHJINDER Vancomycin IV-PHARMACY TO DOSE 500 mls @ 250 mls/hr 11/17/24 17:50 1 each/ Sodium Chloride IV X1 PRN Rx to Dose Protocol Sodium Chloride 100 mls @ 15 mls/hr 11/17/24 17:58 IV .Q6H40M PRN Saline Flush Sodium Chloride 100 mls @ 15 mls/hr 11/17/24 17:58 IV .Q6H40M PRN Additional IVPB Infusion Vasopressin 20 units/ Sodium 25 mls @ 2.25 mls/hr 11/17/24 20:40 Chloride CONT INF .Q11H7M [facility] 0.03 UNITS/MIN Melatonin 3 mg 11/17/24 17:50 Melatonin 3 Mg Tablet PO QHS PRN PRN INSOMNIA Morphine Sulfate 2 mg 11/17/24 17:50 11/17/24 20:03 Morphine 2 Mg/Ml Syringe IV 2 mg Q3H PRN PRN Administration Pain Score 6-10 Ondansetron HCl 4 mg 11/17/24 17:50 Ondansetron 4 Mg/2 Ml Vial IV Q8H PRN PRN NAUSEA/VOMITING Oxycodone HCl 2.5 mg 11/17/24 17:50 11/17/24 18:14 Oxycodone 5 Mg Tablet PO 2.5 mg Q4H PRN PRN Administration Pain Score 4-10 Rivaroxaban 15 mg 11/18/24 17:00 Rivaroxaban 15 Mg Tablet PO DINNER [facility] Senna/Docusate Sodium 2 tablet 11/17/24 17:50 Senna/Docusate Sodium 1 Tablet PO BID PRN PRN Constipation Sodium Chloride 10 - 40 ml 11/17/24 17:58 11/17/24 20:03 0.9 % Nacl (Sterile) Posiflush 10 Ml IV 40 ml UD PRN Administration Port access or dressing change Sodium Chloride 10 - 40 ml 11/17/24 17:58 0.9% Saline Lock 10 Ml Syringe IV UD PRN Multilumen/White Flush Sodium Chloride 10 - 40 ml 11/17/24 17:58 0.9% Saline Lock 10 Ml Syringe IV UD PRN SALINE FLUSH Vancomycin Protocol 1 lab 11/19/24 05:00 Vancomycin Trough/Random Due [facility] 11/19/24 07:00 DAILY [facility] Physical Exam Narrative Gen: Alert and oriented, NAD ENT: MMM CV: S1S2 Irregular Pulm: Coarse BS bilaterally on 2 L NC Abd Soft/nt Extrem: No c/c/e Lab / Micro Data 11/17/24 12:45 11/17/24 12:45 Labs: Laboratory Results - last 24 hr 11/17/24 12:45: WBC 21.2 H, RBC 5.44 H, Hgb 17.7 H, Hct 56.6 H, MCV 104.0 H, MCH 32.5 H, MCHC 31.3 L, RDW Std Deviation 53.3 H, RDW Coeff of Mildred 13.7, Plt Count 272, MPV 11.0, Immature Gran % (Auto) 0.700, Neut % (Auto) 85.3 H, Lymph % (Auto) 6.2 L, [place] % (Auto) 7.5, Eos % (Auto) 0.0, Baso % (Auto) 0.3, Absolute Neuts (auto) 18.1 H, Absolute Lymphs (auto) 1.32, Nucleated RBC % 0, Diff Path Review December, Sodium 142, Potassium 5.1, Chloride 102, Carbon Dioxide 21.9, A nion Gap 18 H, BUN 45 H, Creatinine 2.45 H, Estim Creat Clear Calc 15.17 L, Est GFR (MDRD) Non-Af 19 L, BUN/Creatinine Ratio 18.2, Glucose 160 H, Lactic Acid 4.1 H*, Calcium 9.6, Total Bilirubin 1.19, AST 474 H, ALT 435 H, Alkaline Phosphatase 168 H, Troponin T High Sens 482 H*, [place] [address] H, Total Protein 7.3, Albumin 3.7, Globulin 3.6, Albumin/Globulin Ratio 1.0 11/17/24 13:37: Urine Color Yellow, Urine Clarity Sl. Cloudy, Urine pH 6.0, Ur Specific [place] 1.020, Urine Protein 30 H, Urine Glucose (UA) Normal, Urine Ketones 15 H, Urine Occult Blood 10 H, Urine Nitrite Negative, Urine Bilirubin Negative, Urine Urobilinogen 1 H, Ur Leukocyte Esterase 25 H, Urine RBC 0 SEEN, Urine WBC 0-5 SEEN, Ur Squamous Epith Cells 0-5 SEEN, Urine Bacteria 0 SEEN, Urine Mucus 0 SEEN 11/17/24 15:15: Troponin T Hi Sens 2 Hr 441 H* 11/17/24 17:05: Troponin T Hi Sens 4Hr 407 H* 11/17/24 18:00: Lactic Acid 2.3 H* Micro: Microbiology 11/17/24 18:30 Nasal Secretion MRSA (PCR) - Final 11/17/24 18:30 Urine Catheter - Coon Legionella Antigen - Final 11/17/24 18:30 Urine Catheter - Coon Streptococcus pneumoniae Antigen (M - Final 11/17/24 13:20 Mucosa - Nose SARS-CoV-2, Influenza & RSV (PCR) - Final Imaging Radiology Impression Chest X-Ray 11/17/24 15:21 IMPRESSION: 1. Bilateral airspace opacities, compatible with pneumonitis/pneumonia. 2. Moderate cardiomegaly. 3. Slight increased size of a right midlung pulmonary nodule, previously characterized as a granuloma. Without access to patient chart, this diagnosis can not be confirmed. Correlation with patient's chart recommended and possible outpatient nonemergent CT chest could be obtained for further characterization if clinically indicated, not recently performed and/or inability to confirm benign pathology. Reading Location: [facility] Hip/Pelvis X-Ray 11/17/24 15:21 IMPRESSION: DEGENERATIVE OSTEOARTHROSIS. NO ACUTE FINDINGS. Reading Location: [facility] Assessment and Plan . Assessment and plan: ASSESSMENT: #Septic shock #Pneumonia #Elevated LFTs #Bilateral hip/back pain #Elevated trop likely demand #Afib, rate controlled #H/O COPD on baseline oxygen PLAN: -S/P Sepsis bolus -Continue broad spectrum abx, add Doxy for atypical coverage -Levophed. Add Vasopressin to keep MAP >65 -Stress dose steroids -CT chest/abd/pelvis -Follow LFTs -Continue Xarelto -Supplemental O2 -Obtain echo PPX: Anticoagulated Critical Care Time: 60 min The entirety of this encounter was done via Telemedicine
[2024-11-17 21:08] LABS: Lactic Acid 4.1 mmol/L (0.0-2.0)
[2024-11-17] MEDS: guaiFENesin 1,200 MG Tablet 1200 MG PO (21:45)
[2024-11-17] MEDS: 0.9% Normal Saline (100mL Bag) 100 ML 15 ML IV (21:45)
[2024-11-17] MEDS: Doxycycline 100 MG in 0.9% Normal Saline (250mL Bag) 250 ML 250 MG IV (21:46)
[2024-11-17] MEDS: Arthritis Pain Compound 60 CLICK TUBE TOPICAL (21:46)
[2024-11-17 21:50] LABS: Absolute Lymphocyte Count 1.85 X10^3/uL (0.83-4.51); Absolute Neutrophil Count 18.8 X10^3/uL (2.0-7.7); Basophil# 0.05 X10^3/uL; Basophil% 0.2 % (0-1); Hematocrit 52.9 % (37-47); Hemoglobin 16.7 g/dL (12.0-15.0); Lymphocyte # 1.85 X10^3/ul (0.83-4.51); Mean Corp Hgb Conc 31.6 g/dL (32-36); Mean Corpuscular Hgb 32.6 pg (27.0-32.0); Mean Corpuscular Volume 103.3 fL (81-99); Mean Platelet Vol. 10.7 fl (6.2-12.0); Monocyte# 2.22 X10^3/uL; Monocyte% 9.6 % (0-10); NRBC Flagged by Analyzer 0 % (0-5); Neutrophil % 81.6 % (47-70); POSITIVE DIFFERENTIAL YES; Platelet Count 271 K/mm3 (150-450); RBC Distribution Width CV 13.5 % (11.6-14.6); RBC Distribution Width SD 52.3 fl (35.1-43.9); Red Blood Count 5.12 M/mm3 (4.2-5.4); White Blood Count 23.1 K/mm3 (4.4-11.0)
[2024-11-17] MEDS: Norepinephrine 8 MG in 0.9% Normal Saline (250mL Bag) 242 ML 37.5 MG CONT INF (21:50)
[2024-11-17 22:03] LABS: Differential Indicated SCAN CRITERIA MET
[2024-11-17 22:30] LABS: Differential Comment SCANNED; Pathologist Review May foll
[2024-11-17 22:42] LABS: Lipase 40 U/L (13-75); Magnesium 2.2 mg/dL (1.5-2.2); Phosphorus 7.5 mg/dL (2.7-4.5)
[2024-11-17 22:55] LABS: AST(SGOT) 294 U/L (<=31); Alanine Aminotransfer ALT/SGPT 360 U/L (<=34); Albumin, Serum 3.4 g/dL (3.4-4.8); Alkaline Phosphatase 143 U/L (35-104); Anion Gap 14 (5-15); BUN 50 mg/dL (4-19); BUN/Creat Ratio 22.7 RATIO (10-20); Calcium,Total 8.7 mg/dL (7.6-11.0); Carbon Dioxide 20.1 mmol/L (21.0-32.0); Chloride 106 mmol/L (98-108); Creatinine, Serum 2.22 mg/dL (0.70-1.20); EST Glomerular Filtration Rate 21 (>60); Globulin 3.2 g/dL (2.2-4.2); Glucose 150 mg/dL (70-99); Potassium 5.4 mmol/L (3.3-5.1); Protein, Total 6.6 g/dL (5.9-8.4); Sodium Level 140 mmol/L (133-145); Total Bilirubin 0.97 mg/dL (0.00-1.30)
[2024-11-17] MEDS: Piperacil/Tazobactam 3.375 GM in 0.9% Normal Saline (50mL MB+) 50 ML IV (23:02)
[2024-11-18] VITALS (75 sets, daily range): BP systolic 66–128; BP diastolic 41–112; PULSE 63–91; RESP 9–24; TEMP 36.8–37.7; O2SAT 90–99; BMI 30.9
[2024-11-18] MEDS: Hydrocortisone Sod Succinate 100 MG/2 ML Vial 50 MG IV ×5 (00:11→23:38)
[2024-11-18] MEDS: Sodium Polystyrene Sulfonate 15 GM/60 ML UDC 30 GM PO (00:13)
[2024-11-18] MEDS: Calcium Gluconate IV 1 GM in 0.9% Normal Saline (100mL Bag) 100 ML IV (00:13)
[2024-11-18] MEDS: Sodium Bicarbonate 8.4% 50 ML Syringe 50 MEQ IV (00:13)
[2024-11-18] MEDS: Ipratropium/Albuterol Sulfate 3 ML AMPUL.NEB INHALATION ×4 (01:00→19:41)
[2024-11-18 03:02] LABS: Absolute Lymphocyte Count 1.84 X10^3/uL (0.83-4.51); Absolute Neutrophil Count 19.4 X10^3/uL (2.0-7.7); Basophil# 0.06 X10^3/uL; Basophil% 0.3 % (0-1); Hemoglobin 16.5 g/dL (12.0-15.0); Lymphocyte # 1.84 X10^3/ul (0.83-4.51); Lymphocyte % 7.9 % (19-41); Mean Corp Hgb Conc 31.7 g/dL (32-36); Mean Corpuscular Hgb 32.3 pg (27.0-32.0); Mean Corpuscular Volume 101.8 fL (81-99); Mean Platelet Vol. 10.5 fl (6.2-12.0); Monocyte# 1.78 X10^3/uL; Monocyte% 7.7 % (0-10); NRBC Flagged by Analyzer 0 % (0-5); Neutrophil # 19.43 X10^3/uL (2.7-7.7); Neutrophil % 83.5 % (47-70); POSITIVE DIFFERENTIAL YES; Platelet Count 255 K/mm3 (150-450); RBC Distribution Width CV 13.5 % (11.6-14.6); RBC Distribution Width SD 51.6 fl (35.1-43.9); Red Blood Count 5.11 M/mm3 (4.2-5.4); White Blood Count 23.3 K/mm3 (4.4-11.0)
[2024-11-18 03:06] LABS: Differential Indicated SCAN CRITERIA MET
[2024-11-18 03:14] LABS: International Normalized Ratio 1.5; Prothrombin Time (Protime)PT. 18.8 SECONDS (11.7-14.9)
[2024-11-18 04:06] LABS: Differential Comment SCANNED; Pathologist Review May foll
[2024-11-18 04:13] LABS: ALB/GLOB Ratio 1.1 RATIO (0.9-2.4); AST(SGOT) 224 U/L (<=31); Alanine Aminotransfer ALT/SGPT 325 U/L (<=34); Albumin, Serum 3.4 g/dL (3.4-4.8); Alkaline Phosphatase 141 U/L (35-104); Anion Gap 14 (5-15); BUN 55 mg/dL (4-19); BUN/Creat Ratio 24.7 RATIO (10-20); Carbon Dioxide 20.1 mmol/L (21.0-32.0); Chloride 106 mmol/L (98-108); Creatinine, Serum 2.24 mg/dL (0.70-1.20); EST Glomerular Filtration Rate 21 (>60); Estimated Creatinine Clearance 16.06 ml/min (50-250); Globulin 3.2 g/dL (2.2-4.2); Glucose 140 mg/dL (70-99); Protein, Total 6.6 g/dL (5.9-8.4); Sodium Level 140 mmol/L (133-145); Thyroid Stim Hormone (TSH) 0.997 uIU/mL (0.300-4.200); Total Bilirubin 0.74 mg/dL (0.00-1.30)
[2024-11-18] MEDS: Norepinephrine 8 MG in 0.9% Normal Saline (250mL Bag) 242 ML 28.1 MG CONT INF (05:06)
--- NOTE | 2024-11-18 07:30 | PN.HOSP_ITS ---
Reason for Visit Reason for Visit: Diagnoses Sepsis, unspecified organism (11/17/24) Severe sepsis with septic shock (11/17/24) Subjective Subjective Patient is an 84-year-old lady who was admitted with progressive generalized weakness and low back pain imaging studies obtained on admission demonstrated bilateral airspace opacities compatible with pneumonitis/pneumonia. An assessment of septic shock secondary to pneumonia made admitted to the intensive care unit for further management Objective Data Objective Data Vital Signs: Vital Signs Temp Pulse Resp BP Pulse Ox O2 Del Method O2 Flow Rate 99.8 F H 87 14 113/60 95 Nasal Cannula 3 11/18/24 03:00 11/18/24 07:10 11/18/24 07:10 11/18/24 07:03 11/18/24 07:10 11/18/24 07:10 11/18/24 07:10 Oxygen Flow Rate (L/min) 3 Oxygen Delivery Method Nasal Cannula Weight: 71.7 kg Body Mass Index (BMI) 30.9 Intake & Output: Intake and Output for Last 24 Hours 11/16/24 11/17/24 11/18/24 23:59 23:59 23:59 Intake Total 3777.36 / 3814.86 661.05 / 661.05 Output Total 125 / 125 Balance 3747.36 / 3784.86 536.05 / 536.05 Lab / Micro Data 11/18/24 02:55 11/18/24 02:55 Labs: Laboratory Results - last 24 hr 11/17/24 12:45: WBC 21.2 H, RBC 5.44 H, Hgb 17.7 H, Hct 56.6 H, MCV 104.0 H, MCH 32.5 H, MCHC 31.3 L, RDW Std Deviation 53.3 H, RDW Coeff of Mildred 13.7, Plt Count 272, MPV 11.0, Immature Gran % (Auto) 0.700, Neut % (Auto) 85.3 H, Lymph % (Auto) 6.2 L, Cook % (Auto) 7.5, Eos % (Auto) 0.0, Baso % (Auto) 0.3, Absolute Neuts (auto) 18.1 H, Absolute Lymphs (auto) 1.32, Nucleated RBC % 0, Diff Path Review May foll, Sodium 142, Potassium 5.1, Chloride 102, Carbon Dioxide 21.9, A nion Gap 18 H, BUN 45 H, Creatinine 2.45 H, Estim Creat Clear Calc 15.17 L, Est GFR (MDRD) Non-Af 19 L, BUN/Creatinine Ratio 18.2, Glucose 160 H, Lactic Acid 4.1 H*, Calcium 9.6, Total Bilirubin 1.19, AST 474 H, ALT 435 H, Alkaline Phosphatase 168 H, Troponin T High Sens 482 H*, [place] [address] H, Total Protein 7.3, Albumin 3.7, Globulin 3.6, Albumin/Globulin Ratio 1.0 11/17/24 13:37: Urine Color Yellow, Urine Clarity Sl. Cloudy, Urine pH 6.0, Ur Specific [place] 1.020, Urine Protein 30 H, Urine Glucose (UA) Normal, Urine Ketones 15 H, Urine Occult Blood 10 H, Urine Nitrite Negative, Urine Bilirubin Negative, Urine Urobilinogen 1 H, Ur Leukocyte Esterase 25 H, Urine RBC 0 SEEN, Urine WBC 0-5 SEEN, Ur Squamous Epith Cells 0-5 SEEN, Urine Bacteria 0 SEEN, Urine Mucus 0 SEEN 11/17/24 15:15: Troponin T Hi Sens 2 Hr 441 H* 11/17/24 17:05: Troponin T Hi Sens 4Hr 407 H* 11/17/24 18:00: Lactic Acid 2.3 H* 11/17/24 21:40: WBC 23.1 H, RBC 5.12, Hgb 16.7 H, Hct 52.9 H, MCV 103.3 H, MCH 32.6 H, MCHC 31.6 L, RDW Std Deviation 52.3 H, RDW Coeff of Mildred 13.5, Plt Count 271, MPV 10.7, Immature Gran % (Auto) 0.600, Neut % (Auto) 81.6 H, Lymph % (Auto) 8.0 L, Cook % (Auto) 9.6, Eos % (Auto) 0.0, Baso % (Auto) 0.2, Absolute Neuts (auto) 18.8 H, Absolute Lymphs (auto) 1.85, Nucleated RBC % 0, Differential Comment SCANNED, Diff Path Review December, Sodium 140, Potassium 5.4 H, Chloride 106, Carbon Dioxide 20.1 L, Anion Gap 14, BUN 50 H, Creatinine 2.22 H, Estim Creat Clear Calc 16.20 L, Est GFR (MDRD) Non-Af 21 L, B UN/Creatinine Ratio 22.7 H, Glucose 150 H, Calcium 8.7, Phosphorus 7.5 H, Magnesium 2.2, Total Bilirubin 0.97, AST 294 H, ALT 360 H, Alkaline Phosphatase 143 H, Total Protein 6.6, Albumin 3.4, Globulin 3.2, Albumin/Globulin Ratio 1.0, Lipase 40 11/18/24 02:55: WBC 23.3 H, RBC 5.11, Hgb 16.5 H, Hct 52.0 H, MCV 101.8 H, MCH 32.3 H, MCHC 31.7 L, RDW Std Deviation 51.6 H, RDW Coeff of Mildred 13.5, Plt Count 255, MPV 10.5, Immature Gran % (Auto) 0.600, Neut % (Auto) 83.5 H, Lymph % (Auto) 7.9 L, Cook % (Auto) 7.7, Eos % (Auto) 0.0, Baso % (Auto) 0.3, Absolute Neuts (auto) 19.4 H, Absolute Lymphs (auto) 1.84, Nucleated RBC % 0, Differential Comment SCANNED, Diff Path Review December, PT 18.8 H, INR 1.5, Sodium 140, Potassium 5.0, Chloride 106, Carbon Dioxide 20.1 L, Anion Gap 14, B UN 55 H, Creatinine 2.24 H, Estim Creat Clear Calc 16.06 L, Est GFR (MDRD) Non- Af 21 L, BUN/Creatinine Ratio 24.7 H, Glucose 140 H, Calcium 9.0, Total Bilirubin 0.74, AST 224 H, ALT 325 H, Alkaline Phosphatase 141 H, Total Protein 6.6, Albumin 3.4, Globulin 3.2, Albumin/Globulin Ratio 1.1, TSH 0.997 Micro: Microbiology 11/17/24 18:55 Mucosa - Nasopharyngeal Respiratory Panel (PCR) - Final 11/17/24 18:30 Nasal Secretion MRSA (PCR) - Final 11/17/24 18:30 Urine Catheter - Coon Legionella Antigen - Final 11/17/24 18:30 Urine Catheter - Coon Streptococcus pneumoniae Antigen (M - Final 11/17/24 13:20 Mucosa - Nose SARS-CoV-2, Influenza & RSV (PCR) - Final Radiography Diagnostic Testing: Radiology Impression Chest X-Ray 11/17/24 15:21 IMPRESSION: 1. Bilateral airspace opacities, compatible with pneumonitis/pneumonia. 2. Moderate cardiomegaly. 3. Slight increased size of a right midlung pulmonary nodule, previously characterized as a granuloma. Without access to patient chart, this diagnosis can not be confirmed. Correlation with patient's chart recommended and possible outpatient nonemergent CT chest could be obtained for further characterization if clinically indicated, not recently performed and/or inability to confirm benign pathology. Reading Location: [facility] Hip/Pelvis X-Ray 11/17/24 15:21 IMPRESSION: DEGENERATIVE OSTEOARTHROSIS. NO ACUTE FINDINGS. Reading Location: [facility] Chest/Abdomen/Pelvis CT 11/17/24 20:40 IMPRESSION: 1. Right pleural effusion. 2. Right upper lobe calcified granuloma. 3. Mild centrilobular emphysematous changes. 4. Cardiac enlargement. 5. Chronic changes in the dependent lungs. 6. Total right humeral arthroplasty. 7. Status post cholecystectomy and hysterectomy.. 8. Balloon tip Coon catheter. 9. Atherosclerotic calcific disease of the aorta and iliac arteries. 10. Postoperative changes of the lower anterior abdominal wall. 11. Mild compression of the inferior endplates, L3 and L4 may be related to remote trauma. Clinical correlation recommended. 12. Other nonacute findings detailed above. [facility] Exam Narrative GENERAL: Patient appears ill looking HEENT: Atraumatic; normocephalic EYES; Anicteric, Normal Conjunctiva NECK; supple, normal thyroid, RESPIRATORY: Diminished to auscultation CARDIOVASCULAR: Regular S1 S2, GI: soft, normoactive bowel sounds, : No Renal angle tenderness; EXTREMITIES: No edema, no clubbing, MUSCULOSKELETAL: no muscle wasting NEURO: Awake; no lateralizing signs. SKIN: No Rash PSYCH; Flat affect Assessment & Plan Assessment/Plan (1) Septic shock: PLAN: Plan Patient is an 84-year-old lady who was admitted with progressive generalized weakness and low back pain imaging studies obtained on admission demonstrated bilateral airspace opacities compatible with pneumonitis/pneumonia. An assessment of septic shock secondary to pneumonia made admitted to the intensive care unit for further management . Septic shock ? Secondary to pneumonia Patient presented with progressive generalized weakness was found to be hypotensive with elevated WBC count and elevated lactic acid levels. Patient was admitted to the intensive care unit managed with IV fluid resuscitation, broad-spectrum antibiotic therapy after cultures have been sent patient placed on Levophed and still remains on Levophed as of the morning of 11/18/2024. Response to therapy being monitored with serial lactic acid levels 2. Abnormal urinalysis ? Patient did not have pyuria however had elevated leukocyte Estrace patient remains on broad-spectrum antibiotic therapy cultures pending 3. Acute hypoxia ? Secondary to pneumonia management as discussed above patient was also placed on supplemental oxygen titrated to keep saturation greater than 90 4. Low back pain ? Imaging studies obtained demonstrated Mild compression of the inferior endplates, L3 and L4 may be related to remote trauma. Patient being managed with pain meds as well as muscle relaxant 5. Elevated troponin secondary to demand ischemia from septic shock -Patient with elevated troponin of 482 and proBNP of nearly 22,000, suspect that this is part of the endorgan damage from her septic shock. Patient being managed with serial troponins ordered 2D echo for EF assessment 6. Acute kidney injury ? Suspected to be secondary to ATN from septic shock. Baseline creatinine 0.7 creatinine on admission 2.45. Patient being managed with IV fluid with monitoring monitoring of response to therapy with serial BMP 7. Acute transaminitis ? Secondary to shock liver. Repeated LFTs in a.m. for follow-up 8. Paroxysmal atrial fibrillation ? Rate controlled with atenolol which is currently being held given patient low blood pressure patient is also on systemic anticoagulation with rivaroxaban did continue 8. Essential hypertension ? Patient antihypertensives held given her presentation 9. Psoriatic arthritis -On Skyrizi every 3 month self injection 10. GERD -Continue home famotidine 11. DVT prophylaxis ? Already anticoagulated with rivaroxaban Time spent in the patient's overall evaluation,decision-making process, review of diagnostic data, adjustment of management, discussion with other providers, nursing nursing and ancillary staff involved in patient's care documentation, 55 minutes Charges/Coding Visit Charges Inpatient E&M: [id number] [facility] L3
--- NOTE | 2024-11-18 07:51 | PCM.PN.INT ---
Assessment & Plan Assessment/Plan (1) Shock: PLAN: Plan RECOMMENDATIONS: 1. Ongoing gentle IV fluid hydration, given n.p.o. status. 2. Speech therapy evaluation, prior to advancement of diet. 3. Discontinue IV morphine. 4. Continue to wean Levophed to maintain a mean arterial pressure at or above 65 mmHg. 5. Continue Xarelto per home regimen. 6. Awaiting results of echocardiogram. 7. Physical therapy to work with the patient. 8. Consider referral to apprentice painter neckties. IMPRESSIONS: 1. Undifferentiated shock While the patient initially was admitted to the hospital with septic shock presumed secondary to pneumonia, subsequent imaging of her chest failed to demonstrate any radiographic findings concerning for infection. While blood cultures are still pending, no other definitive source of infection has yet to be identified. Alternatively, given the patient's limited p.o. intake, it is certainly plausible that her presenting laboratory abnormalities and hypotension may be secondary to hypovolemia. An obstructive etiology, such as pulmonary embolism, seems highly unlikely, given that the patient is maintained on Xarelto as an outpatient. For now, we will plan to continue antimicrobials, pending culture results. Given negative MRSA screen, will discontinue vancomycin, however. In the interim, I would plan to continue supplemental IV fluid hydration, given n.p.o. status. Echocardiogram is currently pending to evaluate for underlying cardiac dysfunction. 2. Acute kidney injury Most likely prerenal in etiology. Continue gentle IV fluid hydration along with vasopressor support to maintain hemodynamic stability. Avoid nephrotoxic medications. Continue to monitor urine output. No current indication for renal replacement therapy. 3. Questionable history of COPD/chronic hypoxemic respiratory failure on 2 L/min/atrial fibrillation/low back pain Complicates care, management, recovery and prognosis. Continue supportive measures as noted above. Recommend avoiding large doses of IV morphine. If the patient passes her swallow evaluation, as needed oxycodone can be initiated. Continue systemic anticoagulation with Xarelto. Consider referral to apprentice painter neckties. TIME: 38 minutes of critical care time, independent of procedures, was spent addressing the patient's undifferentiated shock, acute kidney injury, low back pain, review of all data and collaboration with the care team. Subjective Subjective The patient was seen and examined at the bedside this morning. Events from the last 24 hours have been reviewed. The patient currently has a low-grade fever and remains hemodynamically stable on Levophed at 10 mcg/min. She is maintaining appropriate oxygen saturations on 3 L/min via nasal cannula. The patient does report ongoing low back pain, which she states has been present now for approximately 2 months after she injured herself while attempting to get her up off the floor. White blood cell count is elevated at 23,000. Creatinine is stable at 2.24. Objective Data Objective Data The patient's most recent lab work, culture data and imaging studies have all been personally reviewed. Respiratory viral panel was negative. Strep and urine Legionella antigens were negative. Blood cultures are currently pending. Vital Signs: Vital Signs Temp Pulse Resp BP Pulse Ox O2 Del Method O2 Flow Rate 99.8 F H 87 14 113/60 95 Nasal Cannula 3 11/18/24 03:00 11/18/24 07:10 11/18/24 07:10 11/18/24 07:03 11/18/24 07:10 11/18/24 07:10 11/18/24 07:10 Oxygen Flow Rate (L/min) 3 Oxygen Delivery Method Nasal Cannula Weight: 158 lb 1.143 oz Body Mass Index (BMI) 30.9 Intake & Output: Intake and Output for Last 24 Hours 11/16/24 11/17/24 11/18/24 23:59 23:59 23:59 Intake Total 3777.36 / 3814.86 661.05 / 661.05 Output Total 125 / 125 Balance 3747.36 / 3784.86 536.05 / 536.05 Lab / Micro Data Attestation: I reviewed the patient's lab results. 11/18/24 02:55 11/18/24 02:55 Labs: Laboratory Results - last 24 hr 11/17/24 12:45: WBC 21.2 H, RBC 5.44 H, Hgb 17.7 H, Hct 56.6 H, MCV 104.0 H, MCH 32.5 H, MCHC 31.3 L, RDW Std Deviation 53.3 H, RDW Coeff of Mildred 13.7, Plt Count 272, MPV 11.0, Immature Gran % (Auto) 0.700, Neut % (Auto) 85.3 H, Lymph % (Auto) 6.2 L, [place] % (Auto) 7.5, Eos % (Auto) 0.0, Baso % (Auto) 0.3, Absolute Neuts (auto) 18.1 H, Absolute Lymphs (auto) 1.32, Nucleated RBC % 0, Diff Path Review December, Sodium 142, Potassium 5.1, Chloride 102, Carbon Dioxide 21.9, Anion Gap 18 H, BUN 45 H, Creatinine 2.45 H, Estim Creat Clear Calc 15.17 L, Est GFR (MDRD) Non-Af 19 L, BUN/Creatinine Ratio 18.2, Glucose 160 H, Lactic Acid 4.1 H*, Calcium 9.6, Total Bilirubin 1.19, AST 474 H, ALT 435 H, Alkaline Phosphatase 168 H, Troponin T High Sens 482 H*, [place] [address] H, Total Protein 7.3, Albumin 3.7, Globulin 3.6, Albumin/Globulin Ratio 1.0 11/17/24 13:37: Urine Color Yellow, Urine Clarity Sl. Cloudy, Urine pH 6.0, Ur Specific [place] 1.020, Urine Protein 30 H, Urine Glucose (UA) Normal, Urine Ketones 15 H, Urine Occult Blood 10 H, Urine Nitrite Negative, Urine Bilirubin Negative, Urine Urobilinogen 1 H, Ur Leukocyte Esterase 25 H, Urine RBC 0 SEEN, Urine WBC 0-5 SEEN, Ur Squamous Epith Cells 0-5 SEEN, Urine Bacteria 0 SEEN, Urine Mucus 0 SEEN 11/17/24 15:15: Troponin T Hi Sens 2 Hr 441 H* 11/17/24 17:05: Troponin T Hi Sens 4Hr 407 H* 11/17/24 18:00: Lactic Acid 2.3 H* 11/17/24 21:40: WBC 23.1 H, RBC 5.12, Hgb 16.7 H, Hct 52.9 H, MCV 103.3 H, MCH 32.6 H, MCHC 31.6 L, RDW Std Deviation 52.3 H, RDW Coeff of Mildred 13.5, Plt Count 271, MPV 10.7, Immature Gran % (Auto) 0.600, Neut % (Auto) 81.6 H, Lymph % (Auto) 8.0 L, [place] % (Auto) 9.6, Eos % (Auto) 0.0, Baso % (Auto) 0.2, Absolute Neuts (auto) 18.8 H, Absolute Lymphs (auto) 1.85, Nucleated RBC % 0, Differential Comment SCANNED, Diff Path Review May foll, Sodium 140, Potassium 5.4 H, Chloride 106, Carbon Dioxide 20.1 L, Anion Gap 14, BUN 50 H, Creatinine 2.22 H, Estim Creat Clear Calc 16.20 L, Est GFR (MDRD) Non-Af 21 L, BUN/Creatinine Ratio 22.7 H, Glucose 150 H, Calcium 8.7, Phosphorus 7.5 H, Magnesium 2.2, Total Bilirubin 0.97, AST 294 H, ALT 360 H, Alkaline Phosphatase 143 H, Total Protein 6.6, Albumin 3.4, Globulin 3.2, Albumin/Globulin Ratio 1.0, Lipase 40 11/18/24 02:55: WBC 23.3 H, RBC 5.11, Hgb 16.5 H, Hct 52.0 H, MCV 101.8 H, MCH 32.3 H, MCHC 31.7 L, RDW Std Deviation 51.6 H, RDW Coeff of Mildred 13.5, Plt Count 255, MPV 10.5, Immature Gran % (Auto) 0.600, Neut % (Auto) 83.5 H, Lymph % (Auto) 7.9 L, [place] % (Auto) 7.7, Eos % (Auto) 0.0, Baso % (Auto) 0.3, Absolute Neuts (auto) 19.4 H, Absolute Lymphs (auto) 1.84, Nucleated RBC % 0, Differential Comment SCANNED, Diff Path Review May foll, PT 18.8 H, INR 1.5, Sodium 140, Potassium 5.0, Chloride 106, Carbon Dioxide 20.1 L, Anion Gap 14, BUN 55 H, Creatinine 2.24 H, Estim Creat Clear Calc 16.06 L, Est GFR (MDRD) Non-Af 21 L, BUN/Creatinine Ratio 24.7 H, Glucose 140 H, Calcium 9.0, Total Bilirubin 0.74, AST 224 H, ALT 325 H, Alkaline Phosphatase 141 H, Total Protein 6.6, Albumin 3.4, Globulin 3.2, Albumin/Globulin Ratio 1.1, TSH 0.997 Micro: Microbiology 11/17/24 18:55 Mucosa - Nasopharyngeal Respiratory Panel (PCR) - Final 11/17/24 18:30 Nasal Secretion MRSA (PCR) - Final 11/17/24 18:30 Urine Catheter - Coon Legionella Antigen - Final 11/17/24 18:30 Urine Catheter - Coon Streptococcus pneumoniae Antigen (M - Final 11/17/24 13:20 Mucosa - Nose SARS-CoV-2, Influenza & RSV (PCR) - Final Radiography Diagnostic Testing: Radiology Impression Chest X-Ray 11/17/24 15:21 IMPRESSION: 1. Bilateral airspace opacities, compatible with pneumonitis/pneumonia. 2. Moderate cardiomegaly. 3. Slight increased size of a right midlung pulmonary nodule, previously characterized as a granuloma. Without access to patient chart, this diagnosis can not be confirmed. Correlation with patient's chart recommended and possible outpatient nonemergent CT chest could be obtained for further characterization if clinically indicated, not recently performed and/or inability to confirm benign pathology. Reading Location: [facility] Hip/Pelvis X-Ray 11/17/24 15:21 IMPRESSION: DEGENERATIVE OSTEOARTHROSIS. NO ACUTE FINDINGS. Reading Location: [facility] Chest/Abdomen/Pelvis CT 11/17/24 20:40 IMPRESSION: 1. Right pleural effusion. 2. Right upper lobe calcified granuloma. 3. Mild centrilobular emphysematous changes. 4. Cardiac enlargement. 5. Chronic changes in the dependent lungs. 6. Total right humeral arthroplasty. 7. Status post cholecystectomy and hysterectomy.. 8. Balloon tip Coon catheter. 9. Atherosclerotic calcific disease of the aorta and iliac arteries. 10. Postoperative changes of the lower anterior abdominal wall. 11. Mild compression of the inferior endplates, L3 and L4 may be related to remote trauma. Clinical correlation recommended. 12. Other nonacute findings detailed above. [facility] Physical Exam Const alert and no apparent distress Constitutional Narrative: Somewhat somnolent, but arouses easily and answers questions. General Appearance: cooperative HEENT normocephalic and head/scalp atraumatic Eyes EOMs intact bilaterally, conjunctivae normal and no scleral icterus Neck supple General: trachea midline Chest inspection of chest normal Resp normal respiratory effort Auscultation: Negative for rales, rhonchi or wheezes Cardio regular rate and regular rhythm GI normal to inspection, nondistended, normoactive bowel sounds Extremity no clubbing, cyanosis or edema Skin no rashes or lesions noted Neuro CN's II-XII intact bilaterally and moves all extremities Psych Mood & Affect: flat affect Charges/Coding Procedures Hospitalists Procedures: 12416 Critical Care 1st Hr
[2024-11-18] MEDS: 0.9% Normal Saline (1000mL) 2,000 ML 100 ML IV ×2 (08:30→19:13)
[2024-11-18] MEDS: fentaNYL 100 MCG/2 ML Ampul 25 MCG IV (08:31)
[2024-11-18] MEDS: Arthritis Pain Compound 60 CLICK TUBE TOPICAL ×2 (08:51→21:20)
[2024-11-18] MEDS: Piperacil/Tazobactam 3.375 GM in 0.9% Normal Saline (50mL MB+) 50 ML IV ×2 (09:18→21:17)
[2024-11-18] MEDS: fentaNYL 25 MCG Patch TD (10:29)
[2024-11-18] MEDS: Lidocaine 5% Patch 2 PATCH TOPICAL (11:27)
[2024-11-18] MEDS: 0.9 % NaCl (Sterile) Posiflush 10 mL IV (11:33)
[2024-11-18] MEDS: Famotidine 20 MG Tablet PO (12:13)
[2024-11-18] MEDS: TITRATION PARAMETER CHANGE 1 EACH IV (12:57)
--- NOTE | 2024-11-18 13:14 | CASEMGMT ---
Social Work SW met w/pt and pt's granddaughter in the room in regard to discharge plan. Both in agreement for SNF placement. LUMA provided to pt and granddaughter two lists of SNF from [facility], both of facilities in network w/pt's insurance, with quality and resource use data--and one list for this area, the other for the [place] area as this is where Anna lives. Anna explains pt cares for her , he is now in the ED as she went over this morning and he was barely responsive. Anna states he cannot care for himself at home. As per Anna, both pt and her need SNF placement. She states pt needs placed short term but should be able to manage at home once moving better, her however needs fdc placement. LUMA gave Anna the SW in the ED's phone number to call, to check in w/her. LUMA explained we would need three choices on where to send referrals for pt(and ) and we can work to get them both into the same facility. LUMA explained we would need an accepting facility and then insurance authorization. Anna states understanding. Anna is to let SW know where she would like referrals sent. SW did let ED SW know that the granddaughter is here and plans to come back to the ED. Pt also wanted to complete POA paperwork. Pt put Anna as POA and son Seth as the alternate. It took pt some time to sign the document, as her hand dropped down multiple times while signing. Anna states that this is new. LUMA did notify the RN who reached out to the doctor regarding this. LUMA gave pt the original and a copy, and a copy of the POA for healthcare was put in the chart. Living Will deferred at this time due to pt having difficulty w/signing, and also she was uncertain about signing the LW provision in the POA document. SW remains available to assist w/placement, will continue to follow. PARAS Walters
[2024-11-18] MEDS: 0.9% Saline Lock 10 ML Syringe IV ×2 (14:06→18:10)
[2024-11-18] MEDS: Lactulose 20 GM/30 ML UDC PO ×2 (15:38→21:19)
[2024-11-18] MEDS: 0.9% Normal Saline (250mL Bag) 250 ML 999 ML IV (15:38)
[2024-11-18] MEDS: oxyCODONE 5 MG Tablet PO (15:45)
[2024-11-18] MEDS: Rivaroxaban 15 MG Tablet PO (15:47)
--- NOTE | 2024-11-18 15:48 | CHAPLAIN ---
Type of Pastoral Visit ___ Initial Visit ___ Follow-up Visit ___ On-call Visit ___ General Patient Visit ___ Spiritual Assessment ___ Family Conference ___ Bereavement ___ Rapid Response ___ Code Blue ___ Other (describe below) Pastoral Care Referral From ___ Patient ___ Family ___ Nurse ___ Physician ___ Quality Worker ___ Computer Specialist ___ Other (describe below) Sacrament/Intervention ___ Active listening ___ Anointing ___ Denominational ___ Bereavement ___ Communion ___ Cecily exploration ___ ___ Life review ___ Prayer ___ Reconciliation ___ Sacrament of Sick ___ Supportive presence ___ Wedding ___ Other (describe below) Pastoral Comments Attempted visit but patient was needing patient care and pain meds; promised pt that this textile machinery sales representative would try again tomorrow and would be saying a prayer for her; pt acknowledges
[2024-11-18] MEDS: Menthol/Lanolin/Calamine/Znox 113 GM Tube 1 APPLIC TOPICAL (21:19)
[2024-11-18] MEDS: Norepinephrine 8 MG in 0.9% Normal Saline (250mL Bag) 242 ML 9.4 MG CONT INF (21:22)
[2024-11-19] VITALS (23 sets, daily range): BP systolic 87–126; BP diastolic 43–99; PULSE 62–98; RESP 8–18; TEMP 36.2–36.9; O2SAT 94–99; BMI 31.1
[2024-11-19] MEDS: Ipratropium/Albuterol Sulfate 3 ML AMPUL.NEB INHALATION ×4 (00:32→19:35)
[2024-11-19] MEDS: 0.9% Normal Saline (1000mL) 2,000 ML 100 ML IV (04:21)
[2024-11-19 04:42] LABS: Absolute Lymphocyte Count 1.29 X10^3/uL (0.83-4.51); Absolute Neutrophil Count 11.6 X10^3/uL (2.0-7.7); Basophil# 0.02 X10^3/uL; Basophil% 0.1 % (0-1); Hematocrit 45.3 % (37-47); Hemoglobin 14.5 g/dL (12.0-15.0); Lymphocyte # 1.29 X10^3/ul (0.83-4.51); Lymphocyte % 8.9 % (19-41); Mean Corpuscular Hgb 32.7 pg (27.0-32.0); Mean Corpuscular Volume 102.3 fL (81-99); Mean Platelet Vol. 10.9 fl (6.2-12.0); Monocyte# 1.57 X10^3/uL; Monocyte% 10.8 % (0-10); NRBC Flagged by Analyzer 0 % (0-5); Neutrophil # 11.57 X10^3/uL (2.7-7.7); Neutrophil % 79.5 % (47-70); POSITIVE DIFFERENTIAL YES; Platelet Count 154 K/mm3 (150-450); RBC Distribution Width CV 13.9 % (11.6-14.6); RBC Distribution Width SD 52.5 fl (35.1-43.9); Red Blood Count 4.43 M/mm3 (4.2-5.4); White Blood Count 14.6 K/mm3 (4.4-11.0)
[2024-11-19 04:49] LABS: AST(SGOT) 86 U/L (<=31); Alanine Aminotransfer ALT/SGPT 212 U/L (<=34); Albumin, Serum 3.1 g/dL (3.4-4.8); Alkaline Phosphatase 107 U/L (35-104); Anion Gap 12 (5-15); BUN 69 mg/dL (4-19); BUN/Creat Ratio 28.3 RATIO (10-20); Bilirubin, Direct 0.38 mg/dL (0.00-0.30); Calcium,Total 8.5 mg/dL (7.6-11.0); Chloride 113 mmol/L (98-108); Creatinine, Serum 2.42 mg/dL (0.70-1.20); EST Glomerular Filtration Rate 19 (>60); Estimated Creatinine Clearance 15.57 ml/min (50-250); Globulin 2.5 g/dL (2.2-4.2); Glucose 105 mg/dL (70-99); Magnesium 2.2 mg/dL (1.5-2.2); Phosphorus 5.8 mg/dL (2.7-4.5); Potassium 4.1 mmol/L (3.3-5.1); Protein, Total 5.6 g/dL (5.9-8.4); Sodium Level 146 mmol/L (133-145); Total Bilirubin 0.65 mg/dL (0.00-1.30)
[2024-11-19 04:51] LABS: Differential Indicated SCAN CRITERIA MET
[2024-11-19] MEDS: Hydrocortisone Sod Succinate 100 MG/2 ML Vial 50 MG IV ×4 (05:11→22:54)
[2024-11-19] MEDS: Menthol/Lanolin/Calamine/Znox 113 GM Tube 1 APPLIC TOPICAL ×2 (05:11→22:53)
[2024-11-19 05:26] LABS: Differential Comment SCANNED
--- NOTE | 2024-11-19 07:17 | PN.HOSP_ITS ---
Reason for Visit Reason for Visit: Diagnoses Sepsis, unspecified organism (11/17/24) Shock, unspecified (11/17/24) Severe sepsis with septic shock (11/17/24) Subjective Subjective Patient seen much more awake and intact compared to previous day. Patient was found to have significant tremors the day prior ammonia levels obtained came back markedly elevated patient subsequently started on lactulose. Patient was also found to have decreased urinary output and had to be given fluid resuscitation. Patient has since been weaned off Levophed Objective Data Objective Data Vital Signs: Vital Signs Temp Pulse Resp BP Pulse Ox O2 Del Method O2 Flow Rate 97.5 F L 73 17 98/63 98 Nasal Cannula 3 11/19/24 06:08 11/19/24 07:00 11/19/24 07:00 11/19/24 07:00 11/19/24 07:00 11/19/24 07:00 11/19/24 07:00 Oxygen Flow Rate (L/min) 3 Oxygen Delivery Method Nasal Cannula Weight: 72.3 kg Body Mass Index (BMI) 31.1 Intake & Output: Intake and Output for Last 24 Hours 11/17/24 11/18/24 11/19/24 23:59 23:59 23:59 Intake Total 3777.36 / 3814.86 4168.08 / 4318.08 1585.54 / 1585.54 Output Total 305 / 455 150 / 150 Balance 3747.36 / 3784.86 3863.08 / 3863.08 1435.54 / 1435.54 Lab / Micro Data 11/19/24 04:18 11/19/24 04:18 Labs: Laboratory Results - last 24 hr 11/18/24 14:10: Ammonia 117.0 H 11/19/24 04:18: WBC 14.6 H, RBC 4.43, Hgb 14.5, Hct 45.3, MCV 102.3 H, MCH 32.7 H, MCHC 32.0, RDW Std Deviation 52.5 H, RDW Coeff of Mildred 13.9, Plt Count 154, MPV 10.9, Immature Gran % (Auto) 0.700, Neut % (Auto) 79.5 H, Lymph % (Auto) 8.9 L, [place] % (Auto) 10.8 H, Eos % (Auto) 0.0, Baso % (Auto) 0.1, Absolute Neuts (auto) 11.6 H, Absolute Lymphs (auto) 1.29, Nucleated RBC % 0, Differential Comment SCANNED, Diff Path Review December, Sodium 146 H, Potassium 4.1, C hloride 113 H, Carbon Dioxide 21.0, Anion Gap 12, BUN 69 H, Creatinine 2.42 H, E stim Creat Clear Calc 15.57 L, Est GFR (MDRD) Non-Af 19 L, BUN/Creatinine Ratio 28.3 H, Glucose 105 H, Calcium 8.5, Phosphorus 5.8 H, Magnesium 2.2, Total Bilirubin 0.65, Direct Bilirubin 0.38 H, AST 86 H, ALT 212 H, Alkaline Phosphatase 107 H, Total Protein 5.6 L, Albumin 3.1 L, Globulin 2.5 Micro: Microbiology 11/17/24 18:55 Mucosa - Nasopharyngeal Respiratory Panel (PCR) - Final 11/17/24 18:30 Nasal Secretion MRSA (PCR) - Final 11/17/24 18:30 Urine Catheter - Coon Legionella Antigen - Final 11/17/24 18:30 Urine Catheter - Coon Streptococcus pneumoniae Antigen (M - Final 11/17/24 13:20 Mucosa - Nose SARS-CoV-2, Influenza & RSV (PCR) - Final Radiography Diagnostic Testing: Radiology Impression Echocardiogram 11/17/24 20:43 Interpretation Summary The left ventricular ejection fraction is 60 %. Normal LV size. The left atrium is severely enlarged. The right atrium is moderately enlarged. Mild (1+) tricuspid valve insufficiency. Ordering Physician: Lorna Salvador Performed By: Edi David RCS Physical Exam Narrative GENERAL: Patient appears ill looking HEENT: Atraumatic; normocephalic EYES; Anicteric, Normal Conjunctiva NECK; supple, normal thyroid, RESPIRATORY: Diminished to auscultation CARDIOVASCULAR: Regular S1 S2, GI: soft, normoactive bowel sounds, : No Renal angle tenderness; EXTREMITIES: No edema, no clubbing, MUSCULOSKELETAL: no muscle wasting NEURO: Awake; no lateralizing signs. SKIN: No Rash PSYCH; Flat affect Assessment & Plan Assessment/Plan (1) Septic shock: PLAN: Plan Patient is an 84-year-old lady who was admitted with progressive generalized weakness and low back pain imaging studies obtained on admission demonstrated bilateral airspace opacities compatible with pneumonitis/pneumonia. An assessment of septic shock secondary to pneumonia made admitted to the intensive care unit for further management 1. Septic shock ? Secondary to pneumonia Patient presented with progressive generalized weakness was found to be hypotensive with elevated WBC count and elevated lactic acid levels. Patient was admitted to the intensive care unit managed with IV fluid resuscitation, broad-spectrum antibiotic therapy after cultures have been sent patient placed on Levophed and still remains on Levophed as of the morning of 11/18/2024. Response to therapy being monitored with serial lactic acid levels ?; patient was noted to have low urine output did receive fluid bolus 2. Abnormal urinalysis ? Patient did not have pyuria however had elevated leukocyte Estrace patient remains on broad-spectrum antibiotic therapy cultures pending 3. Acute hypoxia ? Secondary to pneumonia management as discussed above patient was also placed on supplemental oxygen titrated to keep saturation greater than 90 4. Acute metabolic encephalopathy ? Multifactorial including patient septic shock hypoxia in addition patient was found to have hyperammonemia. Given the setting of impaired liver function did order lactulose 5. Elevated troponin secondary to demand ischemia from septic shock -Patient with elevated troponin of 482 and proBNP of nearly 22,000, suspect that this is part of the endorgan damage from her septic shock. Patient being managed with serial troponins ordered 2D echo for EF assessment 6. Acute kidney injury ? Suspected to be secondary to ATN from septic shock. Baseline creatinine 0.7 creatinine on admission 2.45. Patient being managed with IV fluid with monitoring monitoring of response to therapy with serial BMP ?; given the persistent impaired kidney function consult was placed to pulmonary medicine 7. Acute transaminitis ? Secondary to shock liver. Repeated LFTs in a.m. for follow-up 8. Paroxysmal atrial fibrillation ? Rate controlled with atenolol which is currently being held given patient low blood pressure patient is also on systemic anticoagulation with rivaroxaban did continue 8. Essential hypertension ? Patient antihypertensives held given her presentation 9. Low back pain ? Imaging studies obtained demonstrated Mild compression of the inferior endplates, L3 and L4 may be related to remote trauma. Patient being managed with pain meds as well as muscle relaxant 10. Psoriatic arthritis -On Skyrizi every 3 month self injection 10. GERD -Continue home famotidine 11. DVT prophylaxis ? Already anticoagulated with rivaroxaban Time spent in the patient's overall evaluation,decision-making process, review of diagnostic data, adjustment of management, discussion with other providers, nursing nursing and ancillary staff involved in patient's care documentation, 50 minutes Charges/Coding Visit Charges Inpatient E&M: 04448 [facility] [[email or web address] Hosp L3
--- NOTE | 2024-11-19 07:40 | PN.CC_ITS ---
Assessment & Plan Assessment/Plan (1) Shock: PLAN: Plan RECOMMENDATIONS: 1. Dietary advancement per speech therapy. 2. Continue supplemental oxygen for baseline requirement. 3. Continue Xarelto per home regimen. 4. Physical therapy to work with the patient. 5. If cultures remain negative over the next 24 to 48 hours, will discontinue antibiotics. 6. Will begin to wean stress dose steroids beginning tomorrow, if the patient remains hemodynamically stable. IMPRESSIONS: 1. Undifferentiated shock While the patient initially was admitted to the hospital with septic shock presumed secondary to pneumonia, subsequent imaging of her chest failed to demonstrate any radiographic findings concerning for infection. While blood cultures are still pending, no other definitive source of infection has yet to be identified. Alternatively, given the patient's limited p.o. intake and hemoconcentrated labs, I suspect that the etiology for her shock is likely hypovolemic in nature. An obstructive etiology, such as pulmonary embolism, seems highly unlikely, given that the patient is maintained on Xarelto as an outpatient. Additionally, surface echocardiogram revealed intact systolic function. Given that cultures are still pending, we will plan to continue empiric antimicrobials. Nevertheless, if there are no positive cultures over the next 24 to 48 hours, I would plan to discontinue antibiotics. 2. Acute kidney injury Most likely prerenal in etiology. Continue gentle IV fluid hydration. Avoid nephrotoxic medications. Continue to monitor urine output. No current indication for renal replacement therapy. 3. Questionable history of COPD/chronic hypoxemic respiratory failure on 2 L/min/atrial fibrillation/low back pain Complicates care, management, recovery and prognosis. Continue supportive measures as noted above. This note was generated with [employer] dictation software. It may contain incorrect words, spelling, and punctuation that were not noted in checking the note before signing. Subjective Subjective The patient was seen and examined at the bedside this morning. Events from the last 24 hours have been reviewed. The patient is currently afebrile, hemodynamically stable and maintaining appropriate oxygen saturations on 3 L/min via nasal cannula. The patient was able to be weaned off of Levophed completely early this morning. She is currently documented to be overall net +9 L for the hospitalization. White blood cell count has improved to 14,000. Creatinine is relatively stable at 2.42. Objective Data Objective Data The patient's most recent lab work, culture data and imaging studies have all been personally reviewed. Respiratory viral panel was negative. Strep and urine Legionella antigens were negative. Blood cultures are currently pending. Vital Signs: Vital Signs Temp Pulse Resp BP Pulse Ox O2 Del Method O2 Flow Rate 97.5 F L 73 17 98/63 98 Nasal Cannula 3 11/19/24 06:08 11/19/24 07:00 11/19/24 07:00 11/19/24 07:00 11/19/24 07:00 11/19/24 07:00 11/19/24 07:00 Oxygen Flow Rate (L/min) 3 Oxygen Delivery Method Nasal Cannula Weight: 159 lb 6.307 oz Body Mass Index (BMI) 31.1 Intake & Output: Intake and Output for Last 24 Hours 11/17/24 11/18/24 11/19/24 23:59 23:59 23:59 Intake Total 3777.36 / 3814.86 4168.08 / 4318.08 1585.54 / 1585.54 Output Total 305 / 455 150 / 150 Balance 3747.36 / 3784.86 3863.08 / 3863.08 1435.54 / 1435.54 Lab / Micro Data Attestation: I reviewed the patient's lab results. 11/19/24 04:18 11/19/24 04:18 Labs: Laboratory Results - last 24 hr 11/18/24 14:10: Ammonia 117.0 H 11/19/24 04:18: WBC 14.6 H, RBC 4.43, Hgb 14.5, Hct 45.3, MCV 102.3 H, MCH 32.7 H, MCHC 32.0, RDW Std Deviation 52.5 H, RDW Coeff of Mildred 13.9, Plt Count 154, MPV 10.9, Immature Gran % (Auto) 0.700, Neut % (Auto) 79.5 H, Lymph % (Auto) 8.9 L, [place] % (Auto) 10.8 H, Eos % (Auto) 0.0, Baso % (Auto) 0.1, Absolute Neuts (auto) 11.6 H, Absolute Lymphs (auto) 1.29, Nucleated RBC % 0, Differential Comment SCANNED, Diff Path Review December, Sodium 146 H, Potassium 4.1, C hloride 113 H, Carbon Dioxide 21.0, Anion Gap 12, BUN 69 H, Creatinine 2.42 H, E stim Creat Clear Calc 15.57 L, Est GFR (MDRD) Non-Af 19 L, BUN/Creatinine Ratio 28.3 H, Glucose 105 H, Calcium 8.5, Phosphorus 5.8 H, Magnesium 2.2, Total Bilirubin 0.65, Direct Bilirubin 0.38 H, AST 86 H, ALT 212 H, Alkaline Phosphatase 107 H, Total Protein 5.6 L, Albumin 3.1 L, Globulin 2.5 Micro: Microbiology 11/17/24 18:55 Mucosa - Nasopharyngeal Respiratory Panel (PCR) - Final 11/17/24 18:30 Nasal Secretion MRSA (PCR) - Final 11/17/24 18:30 Urine Catheter - Coon Legionella Antigen - Final 11/17/24 18:30 Urine Catheter - Coon Streptococcus pneumoniae Antigen (M - Final 11/17/24 13:20 Mucosa - Nose SARS-CoV-2, Influenza & RSV (PCR) - Final Radiography Diagnostic Testing: Radiology Impression Echocardiogram 11/17/24 20:43 Interpretation Summary The left ventricular ejection fraction is 60 %. Normal LV size. The left atrium is severely enlarged. The right atrium is moderately enlarged. Mild (1+) tricuspid valve insufficiency. Ordering Physician: Lorna Salvador Performed By: Edi David RCS Physical Exam Const alert and no apparent distress General Appearance: cooperative HEENT normocephalic and head/scalp atraumatic Eyes EOMs intact bilaterally, conjunctivae normal and no scleral icterus Neck supple General: trachea midline Chest inspection of chest normal Resp normal respiratory effort Auscultation: Negative for rales, rhonchi or wheezes Cardio regular rate and regular rhythm GI normal to inspection, nondistended, normoactive bowel sounds Extremity no clubbing, cyanosis or edema Skin no rashes or lesions noted Neuro CN's II-XII intact bilaterally and moves all extremities Psych Mood & Affect: flat affect Charges/Coding Visit Charges Inpatient E&M: 02305 Subs Hosp L3
[2024-11-19] MEDS: Lidocaine 5% Patch 2 PATCH TOPICAL (09:21)
[2024-11-19] MEDS: Famotidine 20 MG Tablet PO (09:22)
[2024-11-19] MEDS: guaiFENesin 1,200 MG Tablet 1200 MG PO ×2 (09:22→22:54)
[2024-11-19] MEDS: Lactulose 20 GM/30 ML UDC PO ×2 (09:22→22:53)
[2024-11-19] MEDS: Arthritis Pain Compound 60 CLICK TUBE TOPICAL ×2 (09:22→22:53)
[2024-11-19] MEDS: Piperacil/Tazobactam 3.375 GM in 0.9% Normal Saline (50mL MB+) 50 ML IV ×2 (09:41→22:53)
[2024-11-19] MEDS: oxyCODONE 5 MG Tablet PO (11:12)
--- NOTE | 2024-11-19 11:26 | CASEMGMT ---
Social Work SW called pt's granddaughter Anna to coordinate usp choices. She would like referrals sent to [facility], [facility], [facility]. and [facility]. [facility]. These are not necessarily the order of preference as she still plans to go see the facilities. SW will make referrals when appropriate. We are also coordinating to try to get pt and to same facility. PARAS Walters
--- NOTE | 2024-11-19 12:15 | CHAPLAIN ---
Type of Pastoral Visit ___ Initial Visit _x__ Follow-up Visit ___ On-call Visit ___ General Patient Visit ___ Spiritual Assessment ___ Family Conference ___ Bereavement ___ Rapid Response ___ Code Blue ___ Other (describe below) Pastoral Care Referral From _x__ Patient ___ Family ___ Nurse ___ Physician ___ Semiconductor Development Technician ___ Staff Forester ___ Other (describe below) Sacrament/Intervention ___ Active listening ___ Anointing ___ Yazidism ___ Bereavement ___ Communion _x__ Cecily exploration ___ ___ Life review _x__ Prayer ___ Reconciliation ___ Sacrament of Sick _x__ Supportive presence ___ Wedding ___ Other (describe below) Pastoral Comments patient is awake but drowsy; pt immediately requests ice chips; pt says that she is tired and just wants ice chips and sleep; pt did then also ask for a prayer; pt stated her concern is that is also admitted to the hospital; pt indicated that she has a amish connection and would welcome this gun stock maker to call the dough molder to let him know of their admissions; pt is asked about her support and coping; this gun stock maker got more ice chips as permitted by the RN; this gun stock maker notified the amish as requested
[2024-11-19] MEDS: Rivaroxaban 15 MG Tablet PO (16:15)
[2024-11-19] MEDS: 0.9% Saline Lock 10 ML Syringe IV (17:36)
[2024-11-19] MEDS: 0.9 % NaCl (Sterile) Posiflush 10 mL IV (17:54)
--- NOTE | 2024-11-19 18:27 | PCM.CONS.R ---
Assessment & Plan Assessment/Plan (1) NAT (acute kidney injury): PLAN: Baseline creatinine was normal but that was about 2 years ago. Creatinine 2.4. Clinically she looks dry. No evidence of obstruction, Lalnos indwelling. IV fluids for today. Discussed with primary service. HPI Consult Data Date of Consult: 11/19/24 HPI Narrative Reason for Consultation: NAT HPI Narrative: LESLI ROSALES, is a 84 F who is admitted to ICU with shock. nephrology on consult in view of NAT. low dose pressors. Creatinine 2.4. Previous creatinine was normal but last set of labs were from couple of years ago. Currently has an indwelling Llanos catheter. Urine output is present. Unclear etiology of shock. Ammonia level was found to be significantly elevated. [facility] Medical History (Updated 11/19/24 @ 18:[address] Izabel Arias MD) Anxiety Depression Chronic pain GERD (gastroesophageal reflux disease) On home oxygen therapy Atrial fibrillation Congestive heart failure (CHF) Hypertension Shingles Psoriatic arthritis COPD (chronic obstructive pulmonary disease) A-fib Home Medications ?Medication ?Instructions ?Recorded ?Last Taken ?Type atenolol 25 mg tablet 25 mg PO DAILY 06/26/21 Unknown History famotidine 20 mg tablet 20 mg PO DAILY 06/26/21 Unknown History folic acid 1 mg tablet 1 mg PO DAILY supplement 06/26/21 Unknown History Held on 11/18/24. Instructions: Pt has been DC'd ipratropium bromide 0.02 % 2 ml inhalation DAILY 06/26/21 Unknown History solution for inhalation rivaroxaban 20 mg tablet (Xarelto) 20 mg PO DAILY 06/26/21 Unknown History amitriptyline 25 mg tablet 25 mg PO QHS 11/17/24 Unknown History cholecalciferol (vitamin D3) 50 50 mcg PO DAILY 11/17/24 Unknown History mcg (2,000 unit) capsule furosemide 20 mg tablet 20 mg PO DAILY 11/17/24 Unknown History albuterol sulfate 90 mcg/actuation 2 puff inhalation Q6H PRN PRN 11/18/24 Unknown History aerosol inhaler dyspnea oxycodone-acetaminophen 5 mg-325 1 tab PO TID PRN PRN pain 11/18/24 Unknown History mg tablet tiotropium bromide 18 mcg capsule 1 cap inhalation PRN shortness of 11/18/24 Unknown History with inhalation device (Spiriva breath with HandiHaler) Allergy/AdvReac Type Severity Reaction Status Date / Time No Known Allergies Allergy Verified 11/17/24 12:43 Surgical History History of partial hysterectomy History of bladder suspension procedure History of appendectomy History of cholecystectomy H/O hernia repair Social History household members: none Smoking Status: Former smoker substance use type: does not use ROS ROS Narrative negative except above Physical Exam Narrative sleepy no obvious distress no pallor no icterus no JVD s1s2 no murmurs lungs clear abdomen soft no organomegaly no edema no cyanosis llanos + Lab / Micro Data 11/19/24 04:18 11/19/24 04:18 Labs: Laboratory Results - last 24 hr 11/19/24 04:18: WBC 14.6 H, RBC 4.43, Hgb 14.5, Hct 45.3, MCV 102.3 H, MCH 32.7 H, MCHC 32.0, RDW Std Deviation 52.5 H, RDW Coeff of Mildred 13.9, Plt Count 154, MPV 10.9, Immature Gran % (Auto) 0.700, Neut % (Auto) 79.5 H, Lymph % (Auto) 8.9 L, [place] % (Auto) 10.8 H, Eos % (Auto) 0.0, Baso % (Auto) 0.1, Absolute Neuts (auto) 11.6 H, Absolute Lymphs (auto) 1.29, Nucleated RBC % 0, Differential Comment SCANNED, Diff Path Review December, Sodium 146 H, Potassium 4.1, Chloride 113 H, Carbon Dioxide 21.0, Anion Gap 12, BUN 69 H, Creatinine 2.42 H, Estim Creat Clear Calc 15.57 L, Est GFR (MDRD) Non-Af 19 L, BUN/Creatinine Ratio 28.3 H, Glucose 105 H, Calcium 8.5, Phosphorus 5.8 H, Magnesium 2.2, Total Bilirubin 0.65, Direct Bilirubin 0.38 H, AST 86 H, ALT 212 H, Alkaline Phosphatase 107 H, Total Protein 5.6 L, Albumin 3.1 L, Globulin 2.5 Micro: Microbiology 11/17/24 13:37 Blood Culture (Wb) - Anticubital Left Blood Culture - Preliminary No growth in 48 hours. 11/17/24 13:37 Blood Culture (Wb) - Anticubital Right Blood Culture - Preliminary No growth in 48 hours.
[2024-11-19] MEDS: 0.9% Normal Saline (100mL Bag) 100 ML 15 ML IV (22:52)
[2024-11-20] VITALS (9 sets, daily range): BP systolic 137–150; BP diastolic 81–95; PULSE 76–90; RESP 18–20; TEMP 36.6–36.8; O2SAT 94–97; BMI 31.2
[2024-11-20] MEDS: 0.9% Saline Lock 10 ML Syringe IV (05:02)
[2024-11-20] MEDS: Hydrocortisone Sod Succinate 100 MG/2 ML Vial 50 MG IV (05:02)
[2024-11-20] MEDS: Menthol/Lanolin/Calamine/Znox 113 GM Tube 1 APPLIC TOPICAL ×3 (05:02→21:13)
[2024-11-20] MEDS: oxyCODONE 5 MG Tablet PO (05:06)
[2024-11-20] MEDS: Ipratropium/Albuterol Sulfate 3 ML AMPUL.NEB INHALATION ×2 (06:46→12:06)
[2024-11-20 07:04] LABS: Absolute Lymphocyte Count 0.65 X10^3/uL (0.83-4.51); Absolute Neutrophil Count 10.6 X10^3/uL (2.0-7.7); Basophil# 0.01 X10^3/uL; Basophil% 0.1 % (0-1); Hematocrit 47.4 % (37-47); Lymphocyte # 0.65 X10^3/ul (0.83-4.51); Lymphocyte % 5.4 % (19-41); Mean Corp Hgb Conc 31.6 g/dL (32-36); Mean Corpuscular Hgb 32.3 pg (27.0-32.0); Mean Corpuscular Volume 101.9 fL (81-99); Mean Platelet Vol. 11.2 fl (6.2-12.0); Monocyte# 0.77 X10^3/uL; Monocyte% 6.4 % (0-10); NRBC Flagged by Analyzer 0 % (0-5); Neutrophil # 10.59 X10^3/uL (2.7-7.7); Neutrophil % 87.4 % (47-70); Platelet Count 153 K/mm3 (150-450); RBC Distribution Width SD 53.1 fl (35.1-43.9); Red Blood Count 4.65 M/mm3 (4.2-5.4); White Blood Count 12.1 K/mm3 (4.4-11.0)
[2024-11-20 07:28] LABS: AST(SGOT) 58 U/L (<=31); Alanine Aminotransfer ALT/SGPT 185 U/L (<=34); Albumin, Serum 3.3 g/dL (3.4-4.8); Alkaline Phosphatase 116 U/L (35-104); Anion Gap 12 (5-15); BUN 76 mg/dL (4-19); BUN/Creat Ratio 28.9 RATIO (10-20); Bilirubin, Direct 0.48 mg/dL (0.00-0.30); Calcium,Total 8.5 mg/dL (7.6-11.0); Carbon Dioxide 20.6 mmol/L (21.0-32.0); Chloride 112 mmol/L (98-108); Creatinine, Serum 2.62 mg/dL (0.70-1.20); EST Glomerular Filtration Rate 18 (>60); Estimated Creatinine Clearance 14.47 ml/min (50-250); Globulin 2.7 g/dL (2.2-4.2); Glucose 123 mg/dL (70-99); Potassium 3.8 mmol/L (3.3-5.1); Sodium Level 145 mmol/L (133-145); Total Bilirubin 0.86 mg/dL (0.00-1.30)
--- NOTE | 2024-11-20 08:41 | PCM.PN.HOSP ---
Reason for Visit Reason for Visit: Diagnoses Sepsis, unspecified organism (11/17/24) Acute kidney failure, unspecified (11/17/24) Shock, unspecified (11/17/24) Severe sepsis with septic shock (11/17/24) Subjective Subjective Patient was transferred from intensive care unit to the progressive care unit following stabilization of her medical condition. Patient creatinine however continues to worsen. Consult had been placed to nephrology the previous day noted recommendations reviewed. Patient seen still remains significantly weak and involuntary movement persist. Repeated ammonia level Objective Data Objective Data Vital Signs: Vital Signs Temp Pulse Resp BP Pulse Ox O2 Del Method O2 Flow Rate 98.3 F 77 18 138/90 H 94 Nasal Cannula 2 11/20/24 04:53 11/20/24 07:00 11/20/24 06:46 11/20/24 04:53 11/20/24 06:46 11/20/24 06:46 11/20/24 06:46 Oxygen Flow Rate (L/min) 2 Oxygen Delivery Method Nasal Cannula Weight: 72.6 kg Body Mass Index (BMI) 31.2 Intake & Output: Intake and Output for Last 24 Hours 11/18/24 11/19/24 11/20/24 23:59 23:59 23:59 Intake Total 4168.08 / 4318.08 2287.21 / 2487.21 546 / 546 Output Total 305 / 455 650 / 650 350 / 350 Balance 3863.08 / 3863.08 1637.21 / 1837.21 196 / 196 Lab / Micro Data 11/20/24 06:25 11/20/24 06:25 Labs: Laboratory Results - last 24 hr 11/20/24 06:25: WBC 12.1 H, RBC 4.65, Hgb 15.0, Hct 47.4 H, MCV 101.9 H, MCH 32.3 H, MCHC 31.6 L, RDW Std Deviation 53.1 H, RDW Coeff of Mildred 14.0, Plt Count 153, MPV 11.2, Immature Gran % (Auto) 0.700, Neut % (Auto) 87.4 H, Lymph % (Auto) 5.4 L, [place] % (Auto) 6.4, Eos % (Auto) 0.0, Baso % (Auto) 0.1, Absolute Neuts (auto) 10.6 H, Absolute Lymphs (auto) 0.65 L, Nucleated RBC % 0, Sodium 145, Potassium 3.8, Chloride 112 H, Carbon Dioxide 20.6 L, Anion Gap 12, BUN 76 H, Creatinine 2.62 H, Estim Creat Clear Calc 14.47 L, Est GFR (MDRD) Non-Af 18 L, BUN/Creatinine Ratio 28.9 H, Glucose 123 H, Calcium 8.5, Total Bilirubin 0.86, Direct Bilirubin 0.48 H, AST 58 H, ALT 185 H, Alkaline Phosphatase 116 H, Total Protein 6.0, Albumin 3.3 L, Globulin 2.7 Micro: Microbiology 11/17/24 13:37 Blood Culture (Wb) - Anticubital Left Blood Culture - Preliminary No growth in 48 hours. 11/17/24 13:37 Blood Culture (Wb) - Anticubital Right Blood Culture - Preliminary No growth in 48 hours. 11/17/24 18:55 Mucosa - Nasopharyngeal Respiratory Panel (PCR) - Final 11/17/24 18:30 Nasal Secretion MRSA (PCR) - Final 11/17/24 18:30 Urine Catheter - Coon Legionella Antigen - Final 11/17/24 18:30 Urine Catheter - Coon Streptococcus pneumoniae Antigen (M - Final 11/17/24 13:20 Mucosa - Nose SARS-CoV-2, Influenza & RSV (PCR) - Final Physical Exam Narrative GENERAL: Patient appears ill looking HEENT: Atraumatic; normocephalic EYES; Anicteric, Normal Conjunctiva NECK; supple, normal thyroid, RESPIRATORY: Diminished to auscultation CARDIOVASCULAR: Regular S1 S2, GI: soft, normoactive bowel sounds, : No Renal angle tenderness; EXTREMITIES: No edema, no clubbing, MUSCULOSKELETAL: no muscle wasting NEURO: Awake; no lateralizing signs. SKIN: No Rash PSYCH; Flat affect Assessment & Plan Assessment/Plan (1) Septic shock: PLAN: Plan Patient is an 84-year-old lady who was admitted with progressive generalized weakness and low back pain imaging studies obtained on admission demonstrated bilateral airspace opacities compatible with pneumonitis/pneumonia. An assessment of septic shock secondary to pneumonia made admitted to the intensive care unit for further management 1. Septic shock ? Secondary to pneumonia Patient presented with progressive generalized weakness was found to be hypotensive with elevated WBC count and elevated lactic acid levels. Patient was admitted to the intensive care unit managed with IV fluid resuscitation, broad-spectrum antibiotic therapy after cultures have been sent patient placed on Levophed and still remains on Levophed as of the morning of 11/18/2024. Response to therapy being monitored with serial lactic acid levels ?11/19/2024; patient was noted to have low urine output did receive fluid bolus ? 11/20/2024 2. Levophed was weaned off 2 days prior and subsequently transferred to the progressive care unit. Patient cultures so far negative to date 2. Abnormal urinalysis ? Patient did not have pyuria however had elevated leukocyte Estrace patient remains on broad-spectrum antibiotic therapy cultures pending 3. Acute hypoxia ? Secondary to pneumonia management as discussed above patient was also placed on supplemental oxygen titrated to keep saturation greater than 90 4. Acute metabolic encephalopathy ? Multifactorial including patient septic shock hypoxia in addition patient was found to have hyperammonemia. Given the setting of impaired liver function did order lactulose ? 11/20/2024 patient continues to experience involuntary movement repeated ammonia levels. 5. Elevated troponin secondary to demand ischemia from septic shock -Patient with elevated troponin of 482 and proBNP of nearly 22,000, suspect that this is part of the endorgan damage from her septic shock. Patient being managed with serial troponins ordered 2D echo for EF assessment ? 11/20/2024; 2D echo obtained on 11/17/2024 did show The left ventricular ejection fraction is 60 %. Normal LV size. The left atrium is severely enlarged. The right atrium is moderately enlarged. Mild (1+) tricuspid valve insufficiency. 6. Acute kidney injury ? Suspected to be secondary to ATN from septic shock. Baseline creatinine 0.7 creatinine on admission 2.45. Patient being managed with IV fluid with monitoring monitoring of response to therapy with serial BMP ; given the persistent impaired kidney function consult was placed to nephrology ?11/20/2024; patient kidney function continues to worsen nephrology on board 7. Acute transaminitis ? Secondary to shock liver. Repeated LFTs in a.m. for follow-up 8. Paroxysmal atrial fibrillation ? Rate controlled with atenolol which is currently being held given patient low blood pressure patient is also on systemic anticoagulation with rivaroxaban did continue 8. Essential hypertension ? Patient antihypertensives held given her presentation 9. Low back pain ? Imaging studies obtained demonstrated Mild compression of the inferior endplates, L3 and L4 may be related to remote trauma. Patient being managed with pain meds as well as muscle relaxant 10. Psoriatic arthritis -On Skyrizi every 3 month self injection 10. GERD -Continue home famotidine 11. DVT prophylaxis ? Already anticoagulated with rivaroxaban 12. Physical deconditioning ? Requested for PT OT eval and secondary social studies teacher to assist with discharge planning Time spent in the patient's overall evaluation,decision-making process, review of diagnostic data, adjustment of management, discussion with other providers, nursing nursing and ancillary staff involved in patient's care documentation, 50 minutes Charges/Coding Visit Charges Inpatient E&M: 26238 Subs Hosp L3
--- NOTE | 2024-11-20 09:02 | PCM.PN.INT ---
Assessment & Plan Assessment/Plan (1) Shock: PLAN: Plan RECOMMENDATIONS: 1. Continue supplemental oxygen for baseline requirement. 2. Continue Xarelto per home regimen. 3. Physical therapy to work with the patient. 4. Okay to discontinue antibiotics from my perspective. 5. Stress dose steroids have been decreased. Will plan to discontinue completely tomorrow, if the patient remains stable. IMPRESSIONS: 1. Undifferentiated shock While the patient initially was admitted to the hospital with septic shock presumed secondary to pneumonia, subsequent imaging of her chest failed to demonstrate any radiographic findings concerning for infection. Infectious workup from a culture perspective has been unrevealing to date. Therefore, I think it is far more likely that the patient's presenting symptoms and clinical presentation more likely the consequence of hypovolemic shock. An obstructive etiology, such as pulmonary embolism, seems highly unlikely, given that the patient is maintained on Xarelto as an outpatient. Additionally, surface echocardiogram revealed intact systolic function. Given negative culture data to date, I am okay with discontinuing antibiotics. The patient remains hemodynamically stable. Will plan to decrease stress dose steroids today, with tentative plans to discontinue completely tomorrow. 2. Acute kidney injury Most likely prerenal in etiology. Avoid nephrotoxic medications. Continue to monitor urine output. No current indication for renal replacement therapy. Nephrology is following to assist with medical management. 3. Questionable history of COPD/chronic hypoxemic respiratory failure on 2 L/min/atrial fibrillation/low back pain Complicates care, management, recovery and prognosis. Continue supportive measures as noted above. This note was generated with [employer] dictation software. It may contain incorrect words, spelling, and punctuation that were not noted in checking the note before signing. Subjective Subjective The patient was seen and examined at the bedside this morning. Events from the last 24 hours have been reviewed. The patient is currently afebrile, hemodynamically stable and maintaining appropriate oxygen saturations on 2 L/min via nasal cannula. The patient is documented to be overall net +9.4 L for the hospitalization. White blood cell count is down to 12,000. Objective Data Objective Data The patient's most recent lab work, culture data and imaging studies have all been personally reviewed. Respiratory viral panel was negative. Strep and urine Legionella antigens were negative. Blood cultures have not demonstrated any growth to date. Vital Signs: Vital Signs Temp Pulse Resp BP Pulse Ox O2 Del Method O2 Flow Rate 98.3 F 77 18 138/90 H 94 Nasal Cannula 2 11/20/24 04:53 11/20/24 07:00 11/20/24 06:46 11/20/24 04:53 11/20/24 06:46 11/20/24 08:40 11/20/24 08:40 Oxygen Flow Rate (L/min) 2 Oxygen Delivery Method Nasal Cannula Weight: 160 lb 0.889 oz Body Mass Index (BMI) 31.2 Intake & Output: Intake and Output for Last 24 Hours 11/18/24 11/19/24 11/20/24 23:59 23:59 23:59 Intake Total 4168.08 / 4318.08 2287.21 / 2487.21 546 / 546 Output Total 305 / 455 650 / 650 350 / 350 Balance 3863.08 / 3863.08 1637.21 / 1837.21 196 / 196 Lab / Micro Data Attestation: I reviewed the patient's lab results. 11/20/24 06:25 11/20/24 06:25 Labs: Laboratory Results - last 24 hr 11/20/24 06:25: WBC 12.1 H, RBC 4.65, Hgb 15.0, Hct 47.4 H, MCV 101.9 H, MCH 32.3 H, MCHC 31.6 L, RDW Std Deviation 53.1 H, RDW Coeff of Mildred 14.0, Plt Count 153, MPV 11.2, Immature Gran % (Auto) 0.700, Neut % (Auto) 87.4 H, Lymph % (Auto) 5.4 L, [place] % (Auto) 6.4, Eos % (Auto) 0.0, Baso % (Auto) 0.1, Absolute Neuts (auto) 10.6 H, Absolute Lymphs (auto) 0.65 L, Nucleated RBC % 0, Sodium 145, Potassium 3.8, Chloride 112 H, Carbon Dioxide 20.6 L, Anion Gap 12, BUN 76 H, Creatinine 2.62 H, Estim Creat Clear Calc 14.47 L, Est GFR (MDRD) Non-Af 18 L, BUN/Creatinine Ratio 28.9 H, Glucose 123 H, Calcium 8.5, Total Bilirubin 0.86, Direct Bilirubin 0.48 H, AST 58 H, ALT 185 H, Alkaline Phosphatase 116 H, Total Protein 6.0, Albumin 3.3 L, Globulin 2.7 Micro: Microbiology 11/17/24 13:37 Blood Culture (Wb) - Anticubital Left Blood Culture - Preliminary No growth in 48 hours. 11/17/24 13:37 Blood Culture (Wb) - Anticubital Right Blood Culture - Preliminary No growth in 48 hours. 11/17/24 18:55 Mucosa - Nasopharyngeal Respiratory Panel (PCR) - Final 11/17/24 18:30 Nasal Secretion MRSA (PCR) - Final 11/17/24 18:30 Urine Catheter - Coon Legionella Antigen - Final 11/17/24 18:30 Urine Catheter - Coon Streptococcus pneumoniae Antigen (M - Final 11/17/24 13:20 Mucosa - Nose SARS-CoV-2, Influenza & RSV (PCR) - Final Radiography Diagnostic Testing: Radiology Impression Echocardiogram 11/17/24 20:43 Interpretation Summary The left ventricular ejection fraction is 60 %. Normal LV size. The left atrium is severely enlarged. The right atrium is moderately enlarged. Mild (1+) tricuspid valve insufficiency. Ordering Physician: Lorna Salvador Performed By: Edi David RCS Physical Exam Const alert and no apparent distress General Appearance: cooperative HEENT normocephalic and head/scalp atraumatic Eyes EOMs intact bilaterally, conjunctivae normal and no scleral icterus Neck supple General: trachea midline and CVC in place Chest inspection of chest normal Resp normal respiratory effort Auscultation: Negative for rales, rhonchi or wheezes Cardio regular rate and regular rhythm GI normal to inspection, nondistended, normoactive bowel sounds Extremity no clubbing, cyanosis or edema Skin no rashes or lesions noted Neuro CN's II-XII intact bilaterally and moves all extremities Psych Mood & Affect: flat affect Charges/Coding Visit Charges Inpatient E&M: 74999 Subs Hosp L2
[2024-11-20] MEDS: Lactulose 20 GM/30 ML UDC PO ×2 (09:15→21:03)
[2024-11-20] MEDS: guaiFENesin 1,200 MG Tablet 1200 MG PO ×2 (09:15→21:03)
[2024-11-20] MEDS: Lidocaine 5% Patch 2 PATCH TOPICAL (09:16)
[2024-11-20] MEDS: Famotidine 20 MG Tablet PO (09:16)
[2024-11-20] MEDS: Piperacil/Tazobactam 3.375 GM in 0.9% Normal Saline (50mL MB+) 50 ML IV ×2 (09:17→21:03)
[2024-11-20] MEDS: Arthritis Pain Compound 60 CLICK TUBE TOPICAL ×2 (09:18→20:48)
--- NOTE | 2024-11-20 14:50 | PN.RENAL_ITS ---
Subjective Subjective Patient resting quietly. Alert and oriented. No overnight events. Granddaughter at bedside. Patient states she does not have an appetite. Objective Data Objective Data Vital Signs: Vital Signs Temp Pulse Resp BP Pulse Ox O2 Del Method O2 Flow Rate 98.0 F 88 18 150/81 H 96 Nasal Cannula 2 11/20/24 10:38 11/20/24 12:07 11/20/24 12:07 11/20/24 10:38 11/20/24 10:38 11/20/24 10:38 11/20/24 10:38 Oxygen Flow Rate (L/min) 2 Oxygen Delivery Method Nasal Cannula Weight: 72.6 kg Body Mass Index (BMI) 31.2 Intake & Output: Intake and Output for Last 24 Hours 11/18/24 11/19/24 11/20/24 23:59 23:59 23:59 Intake Total 4168.08 / 4318.08 2287.21 / 2487.21 1596 / 1596 Output Total 305 / 455 650 / 650 350 / 350 Balance 3863.08 / 3863.08 1637.21 / 1837.21 1246 / 1246 Lab / Micro Data 11/20/24 06:25 11/20/24 06:25 Labs: Laboratory Results - last 24 hr 11/20/24 06:25: WBC 12.1 H, RBC 4.65, Hgb 15.0, Hct 47.4 H, MCV 101.9 H, MCH 32.3 H, MCHC 31.6 L, RDW Std Deviation 53.1 H, RDW Coeff of Mildred 14.0, Plt Count 153, MPV 11.2, Immature Gran % (Auto) 0.700, Neut % (Auto) 87.4 H, Lymph % (Auto) 5.4 L, [place] % (Auto) 6.4, Eos % (Auto) 0.0, Baso % (Auto) 0.1, Absolute Neuts (auto) 10.6 H, Absolute Lymphs (auto) 0.65 L, Nucleated RBC % 0, Sodium 145, Potassium 3.8, Chloride 112 H, Carbon Dioxide 20.6 L, Anion Gap 12, BUN 76 H, Creatinine 2.62 H, Estim Creat Clear Calc 14.47 L, Est GFR (MDRD) Non-Af 18 L , BUN/Creatinine Ratio 28.9 H, Glucose 123 H, Calcium 8.5, Total Bilirubin 0.86, Direct Bilirubin 0.48 H, AST 58 H, ALT 185 H, Alkaline Phosphatase 116 H, Total Protein 6.0, Albumin 3.3 L, Globulin 2.7 Micro: Microbiology 11/17/24 13:37 Blood Culture (Wb) - Anticubital Left Blood Culture - Preliminary No growth in 48 hours. 11/17/24 13:37 Blood Culture (Wb) - Anticubital Right Blood Culture - Preliminary No growth in 48 hours. 11/17/24 18:55 Mucosa - Nasopharyngeal Respiratory Panel (PCR) - Final 11/17/24 18:30 Nasal Secretion MRSA (PCR) - Final 11/17/24 18:30 Urine Catheter - [place] Legionella Antigen - Final 11/17/24 18:30 Urine Catheter - [place] Streptococcus pneumoniae Antigen (M - Final 11/17/24 13:20 Mucosa - Nose SARS-CoV-2, Influenza & RSV (PCR) - Final Physical Exam Narrative sleepy but alert and oriented no obvious distress lungs clear abdomen soft, nontender no edema llanos + Assessment & Plan Assessment/Plan (1) NAT (acute kidney injury): PLAN: - NAT, baseline creatinine was normal in 2021, gap in labs until this hospitalization. NAT likely secondary to septic shock, pneumonia, hypotension. Creatinine 2.4 on admission--> SCr 2.2 11/18, today creatinine 2.6 mg/dL. 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 Potassium and bicarb acceptable. Patient does have urine output. No edema. Per patient appetite is poor, encouraged oral intake as best as she can. Labs ordered from morning. -Septic shock secondary to pneumonia. Patient had been on Levophed. Off Levophed. Blood pressures were marginally low but slowly improving. Not on any antihypertensives. On O2 2 L nasal cannula. Assessment and plan reviewed with Dr. Arias.
--- NOTE | 2024-11-20 15:50 | CASEMGMT ---
Addendum entered by Kristi Chatterjee 11/20/24 16:01: [facility] has accepted. Kristi Chatterjee DC Planning Asst. Original Note: Discharge Planning Referral sent to [facility]. Kristi Chatterjee DC Planning Asst.
--- NOTE | 2024-11-20 16:32 | CASEMGMT ---
Social Work Kaylee GE and Tiffanie GE met with pt and pt kenisha Castillo to discuss discharge plan. Anna states preferred provider for pt is [facility] which is near Anna's home. Pt is agreeable to this. DC surgical assistant notified and referral sent. [facility] is able to accept pt. Precert to be started when pt is closer to discharge. ANAY Reid
[2024-11-20] MEDS: Rivaroxaban 15 MG Tablet PO (17:01)
[2024-11-20] MEDS: 0.9 % NaCl (Sterile) Posiflush 10 mL IV (21:03)
--- NOTE | 2024-11-20 22:36 | PCM.HOSP.N ---
Hospitalist Note Coon with mildly blood tinged urine, not bright red blood, Hgb stable, continue to monitor.
[2024-11-21 03:00] VITALS: BP 109/55; PULSE 69; RESP 16; TEMP 36.2; O2SAT 97
[2024-11-21] MEDS: Menthol/Lanolin/Calamine/Znox 113 GM Tube 1 APPLIC TOPICAL ×3 (05:03→19:46)
[2024-11-21 05:26] VITALS: BMI 32.5
[2024-11-21 05:39] LABS: Absolute Lymphocyte Count 0.91 X10^3/uL (0.83-4.51); Absolute Neutrophil Count 10.1 X10^3/uL (2.0-7.7); Basophil# 0.02 X10^3/uL; Basophil% 0.2 % (0-1); Eosinophil# 0.01 X10^3/uL; Eosinophils% 0.1 % (0-5); Hematocrit 44.6 % (37-47); Hemoglobin 14.3 g/dL (12.0-15.0); Lymphocyte # 0.91 X10^3/ul (0.83-4.51); Lymphocyte % 7.2 % (19-41); Mean Corp Hgb Conc 32.1 g/dL (32-36); Mean Corpuscular Hgb 32.2 pg (27.0-32.0); Mean Corpuscular Volume 100.5 fL (81-99); Mean Platelet Vol. 11.1 fl (6.2-12.0); Monocyte% 11.9 % (0-10); NRBC Flagged by Analyzer 0 % (0-5); Neutrophil # 10.08 X10^3/uL (2.7-7.7); Neutrophil % 80.1 % (47-70); Platelet Count 136 K/mm3 (150-450); RBC Distribution Width SD 52.2 fl (35.1-43.9); Red Blood Count 4.44 M/mm3 (4.2-5.4); White Blood Count 12.6 K/mm3 (4.4-11.0)
[2024-11-21 06:05] LABS: AST(SGOT) 40 U/L (<=31); Alanine Aminotransfer ALT/SGPT 141 U/L (<=34); Albumin, Serum 2.9 g/dL (3.4-4.8); Alkaline Phosphatase 141 U/L (35-104); Anion Gap 11 (5-15); BUN 78 mg/dL (4-19); BUN/Creat Ratio 29.9 RATIO (10-20); Calcium,Total 8.5 mg/dL (7.6-11.0); Carbon Dioxide 22.2 mmol/L (21.0-32.0); Chloride 114 mmol/L (98-108); Creatinine, Serum 2.61 mg/dL (0.70-1.20); EST Glomerular Filtration Rate 18 (>60); Estimated Creatinine Clearance 14.82 ml/min (50-250); Globulin 2.5 g/dL (2.2-4.2); Glucose 87 mg/dL (70-99); Potassium 3.1 mmol/L (3.3-5.1); Protein, Total 5.4 g/dL (5.9-8.4); Sodium Level 148 mmol/L (133-145); Total Bilirubin 1.04 mg/dL (0.00-1.30)
[2024-11-21 07:50] VITALS: O2SAT 93
[2024-11-21 09:00] VITALS: BP 150/80; PULSE 86; RESP 16; RESP 17; TEMP 36.8; O2SAT 94
[2024-11-21] MEDS: Lidocaine 5% Patch 2 PATCH TOPICAL (09:04)
[2024-11-21] MEDS: Famotidine 20 MG Tablet PO (09:05)
[2024-11-21] MEDS: guaiFENesin 1,200 MG Tablet 1200 MG PO (09:05)
[2024-11-21] MEDS: Lactulose 20 GM/30 ML UDC PO (09:06)
[2024-11-21] MEDS: Arthritis Pain Compound 60 CLICK TUBE TOPICAL ×2 (09:06→19:49)
--- NOTE | 2024-11-21 09:40 | PN.CC_ITS ---
Assessment & Plan Assessment/Plan (1) Shock: PLAN: Plan RECOMMENDATIONS: 1. Continue supplemental oxygen for baseline requirement. 2. Continue Xarelto per home regimen. 3. Physical therapy to work with the patient. 4. Okay to discontinue antibiotics from my perspective. 5. Stress dose steroids will be discontinued today. 6. Recommend removal of central venous catheter. 7. Will sign off from a pulmonary/critical care perspective. Please call with any additional questions. IMPRESSIONS: 1. Undifferentiated shock While the patient initially was admitted to the hospital with septic shock presumed secondary to pneumonia, subsequent imaging of her chest failed to demonstrate any radiographic findings concerning for infection. Infectious workup from a culture perspective has been unrevealing to date. Therefore, I think it is far more likely that the patient's presenting symptoms and clinical presentation more likely the consequence of hypovolemic shock. An obstructive etiology, such as pulmonary embolism, seems highly unlikely, given that the patient is maintained on Xarelto as an outpatient. Additionally, surface echocardiogram revealed intact systolic function. Given negative culture data to date, I am okay with discontinuing antibiotics. Given the patient's hemodynamic stability, we will discontinue stress dose steroids today. 2. Acute kidney injury Most likely prerenal in etiology. Avoid nephrotoxic medications. Continue to monitor urine output. No current indication for renal replacement therapy. Nephrology is following to assist with medical management. 3. Questionable history of COPD/chronic hypoxemic respiratory failure on 2 L/min/atrial fibrillation/low back pain Complicates care, management, recovery and prognosis. Continue supportive measures as noted above. This note was generated with [employer] dictation software. It may contain incorrect words, spelling, and punctuation that were not noted in checking the note before signing. Subjective Subjective The patient was seen and examined at the bedside this morning. Events from the last 24 hours have been reviewed. The patient is currently afebrile, hemodynamically stable and maintaining appropriate oxygen saturations on 1 L/min via nasal cannula. The patient still has ongoing pain related complaints. White blood cell count was noted to be 12,000 this morning. Creatinine is stable at 2.6. Given the patient's hemodynamic stability, stress dose steroids were discontinued. Objective Data Objective Data The patient's most recent lab work, culture data and imaging studies have all been personally reviewed. Respiratory viral panel was negative. Strep and urine Legionella antigens were negative. Blood cultures have not demonstrated any growth to date. Vital Signs: Vital Signs Temp Pulse Resp BP Pulse Ox O2 Del Method O2 Flow Rate 98.2 F 86 17 150/80 H 94 Nasal Cannula 1 11/21/24 09:00 11/21/24 09:00 11/21/24 09:00 11/21/24 09:00 11/21/24 09:00 11/21/24 09:00 11/21/24 09:00 Oxygen Flow Rate (L/min) 1 Oxygen Delivery Method Nasal Cannula Weight: 166 lb 7.184 oz Body Mass Index (BMI) 32.5 Intake & Output: Intake and Output for Last 24 Hours 11/19/24 11/20/24 11/21/24 23:59 23:59 23:59 Intake Total 2287.21 / 2487.21 1596 / 1696 150 / 150 Output Total 650 / 650 350 / 850 675 / 675 Balance 1637.21 / 1837.21 1246 / 846 -525 / -525 Lab / Micro Data Attestation: I reviewed the patient's lab results. 11/21/24 04:42 11/21/24 04:42 Labs: Laboratory Results - last 24 hr 11/21/24 04:42: WBC 12.6 H, RBC 4.44, Hgb 14.3, Hct 44.6, MCV 100.5 H, MCH 32.2 H, MCHC 32.1, RDW Std Deviation 52.2 H, RDW Coeff of Mildred 14.0, Plt Count 136 L, MPV 11.1, Immature Gran % (Auto) 0.500, Neut % (Auto) 80.1 H, Lymph % (Auto) 7.2 L, [place] % (Auto) 11.9 H, Eos % (Auto) 0.1, Baso % (Auto) 0.2, Absolute Neuts (auto) 10.1 H, Absolute Lymphs (auto) 0.91, Nucleated RBC % 0, Sodium 148 H, P otassium 3.1 L, Chloride 114 H, Carbon Dioxide 22.2, Anion Gap 11, BUN 78 H, C reatinine 2.61 H, Estim Creat Clear Calc 14.82 L, Est GFR (MDRD) Non-Af 18 L, B UN/Creatinine Ratio 29.9 H, Glucose 87, Calcium 8.5, Total Bilirubin 1.04, D irect Bilirubin 0.60 H, AST 40 H, ALT 141 H, Alkaline Phosphatase 141 H, Total Protein 5.4 L, Albumin 2.9 L, Globulin 2.5 Micro: Microbiology 11/17/24 13:37 Blood Culture (Wb) - Anticubital Left Blood Culture - Preliminary No growth in 48 hours. 11/17/24 13:37 Blood Culture (Wb) - Anticubital Right Blood Culture - Preliminary No growth in 48 hours. 11/17/24 18:55 Mucosa - Nasopharyngeal Respiratory Panel (PCR) - Final 11/17/24 18:30 Nasal Secretion MRSA (PCR) - Final 11/17/24 18:30 Urine Catheter - Coon Legionella Antigen - Final 11/17/24 18:30 Urine Catheter - Coon Streptococcus pneumoniae Antigen (M - Final 11/17/24 13:20 Mucosa - Nose SARS-CoV-2, Influenza & RSV (PCR) - Final Radiography Diagnostic Testing: Radiology Impression Echocardiogram 11/17/24 20:43 Interpretation Summary The left ventricular ejection fraction is 60 %. Normal LV size. The left atrium is severely enlarged. The right atrium is moderately enlarged. Mild (1+) tricuspid valve insufficiency. Ordering Physician: Lorna Salvador Performed By: Edi David RCS Physical Exam Const alert and no apparent distress General Appearance: cooperative HEENT normocephalic and head/scalp atraumatic Eyes EOMs intact bilaterally, conjunctivae normal and no scleral icterus Neck supple General: trachea midline and CVC in place Chest inspection of chest normal Resp normal respiratory effort Auscultation: Negative for rales, rhonchi or wheezes Cardio regular rate and regular rhythm GI normal to inspection, nondistended, normoactive bowel sounds Extremity no clubbing, cyanosis or edema Skin no rashes or lesions noted Neuro CN's II-XII intact bilaterally and moves all extremities Psych Mood & Affect: flat affect Charges/Coding Visit Charges Inpatient E&M: 05400 Subs Hosp L2
--- NOTE | 2024-11-21 10:13 | PCM.PN.HOSP ---
Reason for Visit Reason for Visit: Diagnoses Sepsis, unspecified organism (11/17/24) Acute kidney failure, unspecified (11/17/24) Shock, unspecified (11/17/24) Severe sepsis with septic shock (11/17/24) Subjective Subjective Patient seen appears frail looking. No significant change in kidney function. Sodium levels trending up. Objective Data Objective Data Vital Signs: Vital Signs Temp Pulse Resp BP Pulse Ox O2 Del Method O2 Flow Rate 98.2 F 86 17 150/80 H 94 Nasal Cannula 1 11/21/24 09:00 11/21/24 09:00 11/21/24 09:00 11/21/24 09:00 11/21/24 09:00 11/21/24 09:00 11/21/24 09:00 Oxygen Flow Rate (L/min) 1 Oxygen Delivery Method Nasal Cannula Weight: 75.5 kg Body Mass Index (BMI) 32.5 Intake & Output: Intake and Output for Last 24 Hours 11/19/24 11/20/24 11/21/24 23:59 23:59 23:59 Intake Total 2287.21 / 2487.21 1596 / 1696 150 / 150 Output Total 650 / 650 350 / 850 675 / 675 Balance 1637.21 / 1837.21 1246 / 846 -525 / -525 Lab / Micro Data 11/21/24 04:42 11/21/24 04:42 Labs: Laboratory Results - last 24 hr 11/21/24 04:42: WBC 12.6 H, RBC 4.44, Hgb 14.3, Hct 44.6, MCV 100.5 H, MCH 32.2 H, MCHC 32.1, RDW Std Deviation 52.2 H, RDW Coeff of Mildred 14.0, Plt Count 136 L, MPV 11.1, Immature Gran % (Auto) 0.500, Neut % (Auto) 80.1 H, Lymph % (Auto) 7.2 L, [place] % (Auto) 11.9 H, Eos % (Auto) 0.1, Baso % (Auto) 0.2, Absolute Neuts (auto) 10.1 H, Absolute Lymphs (auto) 0.91, Nucleated RBC % 0, Sodium 148 H, Potassium 3.1 L, Chloride 114 H, Carbon Dioxide 22.2, Anion Gap 11, BUN 78 H, Creatinine 2.61 H, Estim Creat Clear Calc 14.82 L, Est GFR (MDRD) Non-Af 18 L, BUN/Creatinine Ratio 29.9 H, Glucose 87, Calcium 8.5, Total Bilirubin 1.04, Direct Bilirubin 0.60 H, AST 40 H, ALT 141 H, Alkaline Phosphatase 141 H, Total Protein 5.4 L, Albumin 2.9 L, Globulin 2.5 Micro: Microbiology 11/17/24 13:37 Blood Culture (Wb) - Anticubital Left Blood Culture - Preliminary No growth in 48 hours. 11/17/24 13:37 Blood Culture (Wb) - Anticubital Right Blood Culture - Preliminary No growth in 48 hours. 11/17/24 18:55 Mucosa - Nasopharyngeal Respiratory Panel (PCR) - Final 11/17/24 18:30 Nasal Secretion MRSA (PCR) - Final 11/17/24 18:30 Urine Catheter - Coon Legionella Antigen - Final 11/17/24 18:30 Urine Catheter - Co[place] Streptococcus pneumoniae Antigen (M - Final 11/17/24 13:20 Mucosa - Nose SARS-CoV-2, Influenza & RSV (PCR) - Final Physical Exam Narrative GENERAL: Patient appears ill looking HEENT: Atraumatic; normocephalic EYES; Anicteric, Normal Conjunctiva NECK; supple, normal thyroid, RESPIRATORY: Diminished to auscultation CARDIOVASCULAR: Regular S1 S2, GI: soft, normoactive bowel sounds, : No Renal angle tenderness; EXTREMITIES: No edema, no clubbing, MUSCULOSKELETAL: no muscle wasting NEURO: Awake; no lateralizing signs. SKIN: No Rash PSYCH; Flat affect Assessment & Plan Assessment/Plan (1) Septic shock: PLAN: Plan Patient is an 84-year-old lady who was admitted with progressive generalized weakness and low back pain imaging studies obtained on admission demonstrated bilateral airspace opacities compatible with pneumonitis/pneumonia. An assessment of septic shock secondary to pneumonia made admitted to the intensive care unit for further management 1. Septic shock ? Secondary to pneumonia Patient presented with progressive generalized weakness was found to be hypotensive with elevated WBC count and elevated lactic acid levels. Patient was admitted to the intensive care unit managed with IV fluid resuscitation, broad-spectrum antibiotic therapy after cultures have been sent patient placed on Levophed and still remains on Levophed as of the morning of 11/18/2024. Response to therapy being monitored with serial lactic acid levels ?11/19/2024; patient was noted to have low urine output did receive fluid bolus ? 11/20/2024 2. Levophed was weaned off 2 days prior and subsequently transferred to the progressive care unit. Patient cultures so far negative to date 2. Abnormal urinalysis ? Patient did not have pyuria however had elevated leukocyte Estrace patient remains on broad-spectrum antibiotic therapy cultures pending -Patient has a Coon catheter in place with some trace hematuria. Patient urine cultures apparently not sent on admission 3. Acute hypoxia ? Secondary to pneumonia management as discussed above patient was also placed on supplemental oxygen titrated to keep saturation greater than 90 4. Acute metabolic encephalopathy ? Multifactorial including patient septic shock hypoxia in addition patient was found to have hyperammonemia. Given the setting of impaired liver function did order lactulose ? 11/20/2024 patient continues to experience involuntary movement repeated ammonia levels. 5. Elevated troponin secondary to demand ischemia from septic shock -Patient with elevated troponin of 482 and proBNP of nearly 22,000, suspect that this is part of the endorgan damage from her septic shock. Patient being managed with serial troponins ordered 2D echo for EF assessment ? 11/20/2024; 2D echo obtained on 11/17/2024 did show The left ventricular ejection fraction is 60 %. Normal LV size. The left atrium is severely enlarged. The right atrium is moderately enlarged. Mild (1+) tricuspid valve insufficiency. 6. Acute kidney injury ? Suspected to be secondary to ATN from septic shock. Baseline creatinine 0.7 creatinine on admission 2.45. Patient being managed with IV fluid with monitoring monitoring of response to therapy with serial BMP ; given the persistent impaired kidney function consult was placed to nephrology ?11/20/2024; patient kidney function continues to worsen nephrology on board 7. Acute transaminitis ? Secondary to shock liver. Repeated LFTs in a.m. for follow-up 8. Paroxysmal atrial fibrillation ? Rate controlled with atenolol which is currently being held given patient low blood pressure patient is also on systemic anticoagulation with rivaroxaban did continue 8. Essential hypertension ? Patient antihypertensives held given her presentation 9. Low back pain ? Imaging studies obtained demonstrated Mild compression of the inferior endplates, L3 and L4 may be related to remote trauma. Patient being managed with pain meds as well as muscle relaxant 10. Psoriatic arthritis -On Skyrizi every 3 month self injection 10. GERD -Continue home famotidine 11. DVT prophylaxis ? Already anticoagulated with rivaroxaban 12. Physical deconditioning ? Requested for PT OT eval and social worker health services to assist with discharge planning ? 11/21/2024; patient agrees on being discharged to long-term facility 13. Hypernatremia ? Started patient on 0.45 saline with repeat labs ordered in a.m. Time spent in the patient's overall evaluation,decision-making process, review of diagnostic data, adjustment of management, discussion with other providers, nursing nursing and ancillary staff involved in patient's care documentation, 50 minutes Charges/Coding Visit Charges Inpatient E&M: 17198 [facility] Hosp L3
[2024-11-21] MEDS: Piperacil/Tazobactam 3.375 GM in 0.9% Normal Saline (50mL MB+) 50 ML IV ×2 (10:43→21:11)
--- NOTE | 2024-11-21 11:05 | PN.RENAL_ITS ---
Documented by User: MORALES Schaeffer 11/21/24 11:10 Subjective Subjective Sitting in chair. States still has no appetite but is drinking water. Objective Data Objective Data Vital Signs: Vital Signs Temp Pulse Resp BP Pulse Ox O2 Del Method O2 Flow Rate 98.2 F 86 17 150/80 H 94 Nasal Cannula 1 11/21/24 09:00 11/21/24 09:00 11/21/24 09:00 11/21/24 09:00 11/21/24 09:00 11/21/24 09:00 11/21/24 09:55 Oxygen Flow Rate (L/min) 1 Oxygen Delivery Method Nasal Cannula Weight: 75.5 kg Body Mass Index (BMI) 32.5 Intake & Output: Intake and Output for Last 24 Hours 11/19/24 11/20/24 11/21/24 23:59 23:59 23:59 Intake Total 2287.21 / 2487.21 1596 / 1696 150 / 150 Output Total 650 / 650 350 / 850 675 / 675 Balance 1637.21 / 1837.21 1246 / 846 -525 / -525 Lab / Micro Data 11/21/24 04:42 11/21/24 04:42 Labs: Laboratory Results - last 24 hr 11/21/24 04:42: WBC 12.6 H, RBC 4.44, Hgb 14.3, Hct 44.6, MCV 100.5 H, MCH 32.2 H, MCHC 32.1, RDW Std Deviation 52.2 H, RDW Coeff of Mildred 14.0, Plt Count 136 L, MPV 11.1, Immature Gran % (Auto) 0.500, Neut % (Auto) 80.1 H, Lymph % (Auto) 7.2 L, [place] % (Auto) 11.9 H, Eos % (Auto) 0.1, Baso % (Auto) 0.2, Absolute Neuts (auto) 10.1 H, Absolute Lymphs (auto) 0.91, Nucleated RBC % 0, Sodium 148 H, P otassium 3.1 L, Chloride 114 H, Carbon Dioxide 22.2, Anion Gap 11, BUN 78 H, C reatinine 2.61 H, Estim Creat Clear Calc 14.82 L, Est GFR (MDRD) Non-Af 18 L, B UN/Creatinine Ratio 29.9 H, Glucose 87, Calcium 8.5, Total Bilirubin 1.04, D irect Bilirubin 0.60 H, AST 40 H, ALT 141 H, Alkaline Phosphatase 141 H, Total Protein 5.4 L, Albumin 2.9 L, Globulin 2.5 Micro: Microbiology 11/17/24 13:37 Blood Culture (Wb) - Anticubital Left Blood Culture - Preliminary No growth in 48 hours. 11/17/24 13:37 Blood Culture (Wb) - Anticubital Right Blood Culture - Preliminary No growth in 48 hours. 11/17/24 18:55 Mucosa - Nasopharyngeal Respiratory Panel (PCR) - Final 11/17/24 18:30 Nasal Secretion MRSA (PCR) - Final 11/17/24 18:30 Urine Catheter - Llanos Legionella Antigen - Final 11/17/24 18:30 Urine Catheter - Llanos Streptococcus pneumoniae Antigen (M - Final 11/17/24 13:20 Mucosa - Nose SARS-CoV-2, Influenza & RSV (PCR) - Final Physical Exam Narrative alert and oriented, sitting in chair no obvious distress lungs clear anteriorly abdomen soft, nontender no edema llanos with pinkish tinged colored urine in bag Assessment & Plan Assessment/Plan (1) NAT (acute kidney injury): PLAN: - NAT, baseline creatinine was normal in 2021, gap in labs until this hospitalization. NAT likely secondary to septic shock, pneumonia, hypotension. Creatinine 2.4 on admission--> SCr 2.2 11/18, creatinine 2.6 mg/dL last 2 days. 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 Potassium low, receiving replacement and bicarb acceptable. Patient does have urine output and looks to be picking up. No edema. Per patient appetite is poor, encouraged oral intake as best as she can. Patient is being started on IV fluids this morning. Labs ordered from morning. -Septic shock secondary to pneumonia. Patient had been on Levophed. Off Levophed. Blood pressures were marginally low but slowly improving. Not on any antihypertensives. On O2 2 L nasal cannula. Assessment and plan reviewed with Dr. Arias. Documented by User: Dr. Izabel Arias MD 11/21/24 21:14 Objective Data Lab / Micro Data 11/21/24 04:42 11/21/24 04:42 Assessment & Plan Assessment/Plan (1) NAT (acute kidney injury): PLAN: - NAT, baseline creatinine was normal in 2021, gap in labs until this hospitalization. NAT likely secondary to septic shock, pneumonia, hypotension. Creatinine 2.4 on admission--> SCr 2.2 11/18, creatinine 2.6 mg/dL last 2 days. 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 Potassium low, receiving replacement and bicarb acceptable. Patient does have urine output and looks to be picking up. No edema. Per patient appetite is poor, encouraged oral intake as best as she can. Patient is being started on IV fluids this morning. Labs ordered from morning. -Septic shock secondary to pneumonia. Patient had been on Levophed. Off Levophed. Blood pressures were marginally low but slowly improving. Not on any antihypertensives. On O2 2 L nasal cannula. Assessment and plan reviewed with Dr. Arias. Addendum dw PHOTOGRAPHIC ENLARGER OPERATOR
--- NOTE | 2024-11-21 11:39 | CASEMGMT ---
Social Work Per physician, pt may be ready in the next few days. DC dental ceramist assistant updated and precert to be started for SNF placement. LUMA spoke with Abdias/AMAN Castillo who will be in shortly to visit. Anna requesting to speak with physician. Physician notified. ANAY Reid
--- NOTE | 2024-11-21 11:42 | CASEMGMT ---
Updates sent to [employer] with request for precert to be submitted. Kristi Chatterjee DC Planning Asst.
[2024-11-21] MEDS: Potassium Chloride Oral Soln 20 MEQ/15 ML UDC 40 MEQ PO (12:21)
[2024-11-21] MEDS: 0.45% Normal Saline 1,000 ML 125 ML IV ×2 (12:22→19:46)
[2024-11-21 15:00] VITALS: BP 126/60; PULSE 88; RESP 16; TEMP 36.7; O2SAT 94
[2024-11-21] MEDS: Rivaroxaban 15 MG Tablet PO (17:38)
[2024-11-21] MEDS: Ensure Plus High Protein 120 ML LIQUID PO (17:38)
[2024-11-21 21:00] VITALS: BP 162/82; PULSE 76; PULSE 97; RESP 16; TEMP 36.6; O2SAT 97
[2024-11-22 03:00] VITALS: BP 132/74; PULSE 84; RESP 18; TEMP 36.3; O2SAT 95
[2024-11-22] MEDS: 0.45% Normal Saline 1,000 ML 125 ML IV ×3 (04:11→20:17)
[2024-11-22] MEDS: Menthol/Lanolin/Calamine/Znox 113 GM Tube 1 APPLIC TOPICAL ×3 (04:11→21:44)
[2024-11-22 04:52] VITALS: BMI 32.5
[2024-11-22 05:58] LABS: Absolute Lymphocyte Count 0.82 X10^3/uL (0.83-4.51); Absolute Neutrophil Count 10.3 X10^3/uL (2.0-7.7); Basophil# 0.02 X10^3/uL; Basophil% 0.2 % (0-1); Eosinophil# 0.11 X10^3/uL; Eosinophils% 0.9 % (0-5); Hematocrit 44.9 % (37-47); Hemoglobin 14.4 g/dL (12.0-15.0); Lymphocyte # 0.82 X10^3/ul (0.83-4.51); Lymphocyte % 6.4 % (19-41); Mean Corp Hgb Conc 32.1 g/dL (32-36); Mean Corpuscular Hgb 32.6 pg (27.0-32.0); Mean Corpuscular Volume 101.6 fL (81-99); Mean Platelet Vol. 11.3 fl (6.2-12.0); Monocyte# 1.56 X10^3/uL; Monocyte% 12.1 % (0-10); NRBC Flagged by Analyzer 0 % (0-5); Neutrophil # 10.28 X10^3/uL (2.7-7.7); Neutrophil % 79.9 % (47-70); POSITIVE DIFFERENTIAL YES; Platelet Count 121 K/mm3 (150-450); RBC Distribution Width CV 13.5 % (11.6-14.6); RBC Distribution Width SD 51.5 fl (35.1-43.9); Red Blood Count 4.42 M/mm3 (4.2-5.4); White Blood Count 12.9 K/mm3 (4.4-11.0)
[2024-11-22 06:15] LABS: Differential Indicated SCAN CRITERIA MET
[2024-11-22 06:44] LABS: Magnesium 2.2 mg/dL (1.5-2.2); Phosphorus 3.4 mg/dL (2.7-4.5)
[2024-11-22 07:00] LABS: Anion Gap 11 (5-15); BUN 74 mg/dL (4-19); BUN/Creat Ratio 32.3 RATIO (10-20); Calcium,Total 8.2 mg/dL (7.6-11.0); Carbon Dioxide 20.8 mmol/L (21.0-32.0); Chloride 111 mmol/L (98-108); Creatinine, Serum 2.29 mg/dL (0.70-1.20); EST Glomerular Filtration Rate 21 (>60); Estimated Creatinine Clearance 16.91 ml/min (50-250); Glucose 82 mg/dL (70-99); Potassium 3.1 mmol/L (3.3-5.1); Sodium Level 142 mmol/L (133-145)
[2024-11-22 07:31] LABS: Platelet Estimate SLT DEC (ADEQ)
--- NOTE | 2024-11-22 08:52 | PCM.PN.REN ---
Subjective Subjective Resting in bed, no overnight events. States has been trying to eat and drink more. Objective Data Objective Data Vital Signs: Vital Signs Temp Pulse Resp BP Pulse Ox O2 Del Method O2 Flow Rate 97.3 F L 84 18 132/74 H 95 Nasal Cannula 2 11/22/24 03:00 11/22/24 03:00 11/22/24 03:00 11/22/24 03:00 11/22/24 03:00 11/22/24 03:00 11/22/24 03:00 Oxygen Flow Rate (L/min) 2 Oxygen Delivery Method Nasal Cannula Weight: 75.6 kg Body Mass Index (BMI) 32.5 Intake & Output: Intake and Output for Last 24 Hours 11/20/24 11/21/24 11/22/24 23:59 23:59 23:59 Intake Total 1596 / 1696 1125 / 1125 1125 / 1125 Output Total 350 / 850 975 / 975 150 / 150 Balance 1246 / 846 150 / 150 975 / 975 Lab / Micro Data 11/22/24 05:09 11/22/24 05:09 Labs: Laboratory Results - last 24 hr 11/19/24 04:18: Diff Path Review N/A 11/22/24 05:09: WBC 12.9 H, RBC 4.42, Hgb 14.4, Hct 44.9, MCV 101.6 H, MCH 32.6 H, MCHC 32.1, RDW Std Deviation 51.5 H, RDW Coeff of Mildred 13.5, Plt Count 121 L, MPV 11.3, Immature Gran % (Auto) 0.500, Neut % (Auto) 79.9 H, Lymph % (Auto) 6.4 L, Harris % (Auto) 12.1 H, Eos % (Auto) 0.9, Baso % (Auto) 0.2, Absolute Neuts (auto) 10.3 H, Absolute Lymphs (auto) 0.82 L, Nucleated RBC % 0, Platelet Estimate SLT DEC, Sodium 142, Potassium 3.1 L, Chloride 111 H, Carbon Dioxide 20.8 L, Anion Gap 11, BUN 74 H, Creatinine 2.29 H, Estim Creat Clear Calc 16.91 L, Est GFR (MDRD) Non-Af 21 L, BUN/Creatinine Ratio 32.3 H, Glucose 82, Calcium 8.2, Phosphorus 3.4, Magnesium 2.2 Micro: Microbiology 11/17/24 13:37 Blood Culture (Wb) - Anticubital Left Blood Culture - Preliminary No growth in 48 hours. 11/17/24 13:37 Blood Culture (Wb) - Anticubital Right Blood Culture - Preliminary No growth in 48 hours. 11/17/24 18:55 Mucosa - Nasopharyngeal Respiratory Panel (PCR) - Final 11/17/24 18:30 Nasal Secretion MRSA (PCR) - Final 11/17/24 18:30 Urine Catheter - Llanos Legionella Antigen - Final 11/17/24 18:30 Urine Catheter - Llanos Streptococcus pneumoniae Antigen (M - Final 11/17/24 13:20 Mucosa - Nose SARS-CoV-2, Influenza & RSV (PCR) - Final Physical Exam Narrative alert and oriented, sitting in chair no obvious distress lungs clear anteriorly abdomen soft, nontender no edema llanos Assessment & Plan Assessment/Plan (1) NAT (acute kidney injury): PLAN: - NAT, baseline creatinine was normal in 2021, gap in labs until this hospitalization. NAT likely secondary to septic shock, pneumonia, hypotension. Creatinine 2.4 on admission--> SCr 2.2 11/18, creatinine 2.6 mg/dL for a few days, today her creatinine is 2.29. Overall renal function is stable and has improved. Potassium low, receiving replacement again today and bicarb acceptable. Patient does have urine output and is picking up. No edema. Per patient appetite is poor, encouraged oral intake as best as she can, can continue with IV fluids. Labs ordered from morning. -Septic shock secondary to pneumonia. Patient had been on Levophed. Off Levophed. Blood pressures were marginally low but slowly improving. Not on any antihypertensives. On O2 2 L nasal cannula. Assessment and plan reviewed with Dr. Arias.
[2024-11-22 09:00] VITALS: BP 155/70; PULSE 78; RESP 17; TEMP 36.6; O2SAT 94
--- NOTE | 2024-11-22 09:00 | PCM.PN.HOSP ---
Reason for Visit Reason for Visit: Diagnoses Sepsis, unspecified organism (11/17/24) Acute kidney failure, unspecified (11/17/24) Shock, unspecified (11/17/24) Severe sepsis with septic shock (11/17/24) Subjective Subjective Patient seen much more energetic compared to previous day. Patient creatinine down to 2.9, potassium however is 3.1. Patient was on lactulose discontinued following improvement in her mentation and tremors Objective Data Objective Data Vital Signs: Vital Signs Temp Pulse Resp BP Pulse Ox O2 Del Method O2 Flow Rate 97.3 F L 84 18 132/74 H 95 Nasal Cannula 2 11/22/24 03:00 11/22/24 03:00 11/22/24 03:00 11/22/24 03:00 11/22/24 03:00 11/22/24 08:56 11/22/24 08:56 Oxygen Flow Rate (L/min) 2 Oxygen Delivery Method Nasal Cannula Weight: 75.6 kg Body Mass Index (BMI) 32.5 Intake & Output: Intake and Output for Last 24 Hours 11/20/24 11/21/24 11/22/24 23:59 23:59 23:59 Intake Total 1596 / 1696 1125 / 1125 1125 / 1125 Output Total 350 / 850 975 / 975 150 / 150 Balance 1246 / 846 150 / 150 975 / 975 Lab / Micro Data 11/22/24 05:09 11/22/24 05:09 Labs: Laboratory Results - last 24 hr 11/19/24 04:18: Diff Path Review N/A 11/22/24 05:09: WBC 12.9 H, RBC 4.42, Hgb 14.4, Hct 44.9, MCV 101.6 H, MCH 32.6 H, MCHC 32.1, RDW Std Deviation 51.5 H, RDW Coeff of Mildred 13.5, Plt Count 121 L, MPV 11.3, Immature Gran % (Auto) 0.500, Neut % (Auto) 79.9 H, Lymph % (Auto) 6.4 L, [place] % (Auto) 12.1 H, Eos % (Auto) 0.9, Baso % (Auto) 0.2, Absolute Neuts (auto) 10.3 H, Absolute Lymphs (auto) 0.82 L, Nucleated RBC % 0, Platelet Estimate SLT DEC, Sodium 142, Potassium 3.1 L, Chloride 111 H, Carbon Dioxide 20.8 L, Anion Gap 11, BUN 74 H, Creatinine 2.29 H, Estim Creat Clear Calc 16.91 L, Est GFR (MDRD) Non-Af 21 L, BUN/Creatinine Ratio 32.3 H, Glucose 82, Calcium 8.2, Phosphorus 3.4, Magnesium 2.2 Micro: Microbiology 11/17/24 13:37 Blood Culture (Wb) - Anticubital Left Blood Culture - Preliminary No growth in 48 hours. 11/17/24 13:37 Blood Culture (Wb) - Anticubital Right Blood Culture - Preliminary No growth in 48 hours. 11/17/24 18:55 Mucosa - Nasopharyngeal Respiratory Panel (PCR) - Final 11/17/24 18:30 Nasal Secretion MRSA (PCR) - Final 11/17/24 18:30 Urine Catheter - Coon Legionella Antigen - Final 11/17/24 18:30 Urine Catheter - Coon Streptococcus pneumoniae Antigen (M - Final 11/17/24 13:20 Mucosa - Nose SARS-CoV-2, Influenza & RSV (PCR) - Final Physical Exam Narrative GENERAL: Much more interactive HEENT: Atraumatic; normocephalic EYES; Anicteric, Normal Conjunctiva NECK; supple, normal thyroid, RESPIRATORY: Diminished to auscultation CARDIOVASCULAR: Regular S1 S2, GI: soft, normoactive bowel sounds, : No Renal angle tenderness; EXTREMITIES: No edema, no clubbing, MUSCULOSKELETAL: no muscle wasting NEURO: Awake; no lateralizing signs. SKIN: No Rash PSYCH; Flat affect Assessment & Plan Assessment/Plan (1) Septic shock: PLAN: Plan Patient is an 84-year-old lady who was admitted with progressive generalized weakness and low back pain imaging studies obtained on admission demonstrated bilateral airspace opacities compatible with pneumonitis/pneumonia. An assessment of septic shock secondary to pneumonia made admitted to the intensive care unit for further management 1. Septic shock ? Secondary to pneumonia Patient presented with progressive generalized weakness was found to be hypotensive with elevated WBC count and elevated lactic acid levels. Patient was admitted to the intensive care unit managed with IV fluid resuscitation, broad-spectrum antibiotic therapy after cultures have been sent patient placed on Levophed and still remains on Levophed as of the morning of 11/18/2024. Response to therapy being monitored with serial lactic acid levels ?11/19/2024; patient was noted to have low urine output did receive fluid bolus ? 11/20/2024 2. Levophed was weaned off 2 days prior and subsequently transferred to the progressive care unit. Patient cultures so far negative to date 2. Abnormal urinalysis ? Patient did not have pyuria however had elevated leukocyte Estrace patient remains on broad-spectrum antibiotic therapy cultures pending -Patient has a Coon catheter in place with some trace hematuria. Patient urine cultures apparently not sent on admission 3. Acute hypoxia ? Secondary to pneumonia management as discussed above patient was also placed on supplemental oxygen titrated to keep saturation greater than 90 4. Acute metabolic encephalopathy ? Multifactorial including patient septic shock hypoxia in addition patient was found to have hyperammonemia. Given the setting of impaired liver function did order lactulose ? 11/20/2024 patient continues to experience involuntary movement repeated ammonia levels. ? 11/22/2024; patient back to baseline lactulose discontinued 5. Elevated troponin secondary to demand ischemia from septic shock -Patient with elevated troponin of 482 and proBNP of nearly 22,000, suspect that this is part of the endorgan damage from her septic shock. Patient being managed with serial troponins ordered 2D echo for EF assessment ? 11/20/2024; 2D echo obtained on 11/17/2024 did show The left ventricular ejection fraction is 60 %. Normal LV size. The left atrium is severely enlarged. The right atrium is moderately enlarged. Mild (1+) tricuspid valve insufficiency. 6. Acute kidney injury ? Suspected to be secondary to ATN from septic shock. Baseline creatinine 0.7 creatinine on admission 2.45. Patient being managed with IV fluid with monitoring monitoring of response to therapy with serial BMP ; given the persistent impaired kidney function consult was placed to nephrology ?11/20/2024; patient kidney function continues to worsen nephrology on board 7. Acute transaminitis ? Secondary to shock liver. Repeated LFTs in a.m. for follow-up 8. Paroxysmal atrial fibrillation ? Rate controlled with atenolol which is currently being held given patient low blood pressure patient is also on systemic anticoagulation with rivaroxaban did continue 8. Essential hypertension ? Patient antihypertensives held given her presentation 9. Low back pain ? Imaging studies obtained demonstrated Mild compression of the inferior endplates, L3 and L4 may be related to remote trauma. Patient being managed with pain meds as well as muscle relaxant 10. Psoriatic arthritis -On Skyrizi every 3 month self injection 10. GERD -Continue home famotidine 11. DVT prophylaxis ? Already anticoagulated with rivaroxaban 12. Physical deconditioning ? Requested for PT OT eval and drug abuse social worker to assist with discharge planning ? 11/21/2024; patient agrees on being discharged to custodial facility 13. Hypernatremia ? Started patient on 0.45 saline with repeat labs ordered in a.m. ? 11/22/2024; sodium levels down to 142 14. Hypokalemia -Corrected per protocol Time spent in the patient's overall evaluation,decision-making process, review of diagnostic data, adjustment of management, discussion with other providers, nursing nursing and ancillary staff involved in patient's care documentation, 38 minutes Charges/Coding Visit Charges Inpatient E&M: 10789 Subs Hosp L2
[2024-11-22] MEDS: Ensure Plus High Protein 120 ML LIQUID PO ×4 (09:15→21:38)
[2024-11-22] MEDS: Potassium Chloride Oral Tablet 20 MEQ 40 MEQ PO (09:15)
[2024-11-22] MEDS: Arthritis Pain Compound 60 CLICK TUBE TOPICAL ×2 (09:16→21:50)
[2024-11-22] MEDS: Lidocaine 5% Patch 2 PATCH TOPICAL (09:17)
[2024-11-22] MEDS: Famotidine 20 MG Tablet PO (09:18)
[2024-11-22] MEDS: Piperacil/Tazobactam 3.375 GM in 0.9% Normal Saline (50mL MB+) 50 ML IV ×2 (09:18→21:55)
--- NOTE | 2024-11-22 09:57 | CASEMGMT ---
[facility] asked to call unit should auth be received after hours or over the weekend. Green sheet completed and given to LUMA. Kristi Chatterjee DC Planning Asst.
[2024-11-22 11:05] VITALS: O2SAT 95
--- NOTE | 2024-11-22 11:08 | CASEMGMT ---
Social Work PASRR completed in [facility] for admission to SNF when appropriate. ANAY Reid
[2024-11-22 14:39] VITALS: BP 134/66; PULSE 76; RESP 17; TEMP 36.7; O2SAT 94
[2024-11-22] MEDS: Rivaroxaban 15 MG Tablet PO (17:17)
[2024-11-22 21:40] VITALS: BP 157/81; PULSE 80; RESP 18; TEMP 37.1; O2SAT 96
[2024-11-22] MEDS: 0.9% Saline Lock 10 ML Syringe IV (22:02)
[2024-11-22] MEDS: NYSTATIN 500,000 UNIT/5 ML UDC 500000 UNIT PO (22:07)
[2024-11-22] MEDS: oxyCODONE 5 MG Tablet PO (22:09)
[2024-11-23] MEDS: 0.45% Normal Saline 1,000 ML 125 ML IV (04:04)
[2024-11-23 04:05] VITALS: BP 159/75; PULSE 68; RESP 16; TEMP 36.3; O2SAT 97
[2024-11-23 04:33] VITALS: BMI 33.0
[2024-11-23] MEDS: Menthol/Lanolin/Calamine/Znox 113 GM Tube 1 APPLIC TOPICAL ×3 (05:52→22:07)
[2024-11-23 07:15] LABS: Absolute Lymphocyte Count 0.89 X10^3/uL (0.83-4.51); Absolute Neutrophil Count 10.9 X10^3/uL (2.0-7.7); Anion Gap 10 (5-15); BUN 63 mg/dL (4-19); BUN/Creat Ratio 31.5 RATIO (10-20); Basophil# 0.02 X10^3/uL; Basophil% 0.1 % (0-1); Calcium,Total 8.2 mg/dL (7.6-11.0); Carbon Dioxide 21.9 mmol/L (21.0-32.0); Chloride 110 mmol/L (98-108); Creatinine, Serum 1.99 mg/dL (0.70-1.20); EST Glomerular Filtration Rate 24 (>60); Eosinophil# 0.29 X10^3/uL; Eosinophils% 2.1 % (0-5); Estimated Creatinine Clearance 19.62 ml/min (50-250); Glucose 89 mg/dL (70-99); Hematocrit 44.8 % (37-47); Hemoglobin 14.6 g/dL (12.0-15.0); Lymphocyte # 0.89 X10^3/ul (0.83-4.51); Lymphocyte % 6.5 % (19-41); Mean Corp Hgb Conc 32.6 g/dL (32-36); Mean Corpuscular Hgb 32.7 pg (27.0-32.0); Mean Corpuscular Volume 100.2 fL (81-99); Mean Platelet Vol. 11.5 fl (6.2-12.0); Monocyte# 1.51 X10^3/uL; NRBC Flagged by Analyzer 0 % (0-5); Neutrophil % 79.8 % (47-70); POSITIVE COUNT YES; POSITIVE DIFFERENTIAL YES; Platelet Count 114 K/mm3 (150-450); Potassium 3.1 mmol/L (3.3-5.1); RBC Distribution Width CV 13.5 % (11.6-14.6); RBC Distribution Width SD 49.8 fl (35.1-43.9); Red Blood Count 4.47 M/mm3 (4.2-5.4); Sodium Level 141 mmol/L (133-145); White Blood Count 13.7 K/mm3 (4.4-11.0)
[2024-11-23 07:26] VITALS: O2SAT 94
[2024-11-23 07:35] LABS: Differential Indicated SCAN CRITERIA MET
--- NOTE | 2024-11-23 07:48 | PCM.PN.HOSP ---
Reason for Visit Reason for Visit: Diagnoses Sepsis, unspecified organism (11/17/24) Acute kidney failure, unspecified (11/17/24) Shock, unspecified (11/17/24) Severe sepsis with septic shock (11/17/24) Subjective Subjective Patient seen did complain of oral pain physical exam did reveal presence of oral candidiasis patient started on nystatin swish and swallow. Objective Data Objective Data Vital Signs: Vital Signs Temp Pulse Resp BP Pulse Ox O2 Del Method O2 Flow Rate 97.3 F L 68 16 159/75 H 97 Nasal Cannula 2 11/23/24 04:05 11/23/24 04:05 11/23/24 04:05 11/23/24 04:05 11/23/24 04:05 11/23/24 04:11 11/23/24 04:05 Oxygen Flow Rate (L/min) 2 Oxygen Delivery Method Nasal Cannula Weight: 76.8 kg Body Mass Index (BMI) 33.0 Intake & Output: Intake and Output for Last 24 Hours 11/21/24 11/22/24 11/23/24 23:59 23:59 23:59 Intake Total 1125 / 1125 3895 / 3895 1262.92 / 1262.92 Output Total 975 / 975 151 / 151 450 / 450 Balance 150 / 150 3744 / 3744 812.92 / 812.92 Lab / Micro Data 11/23/24 04:45 11/23/24 04:45 Labs: Laboratory Results - last 24 hr 11/19/24 04:18: Diff Path Review N/A 11/23/24 04:45: WBC 13.7 H, RBC 4.47, Hgb 14.6, Hct 44.8, MCV 100.2 H, MCH 32.7 H, MCHC 32.6, RDW Std Deviation 49.8 H, RDW Coeff of Mildred 13.5, Plt Count 114 L, MPV 11.5, Immature Gran % (Auto) 0.500, Neut % (Auto) 79.8 H, Lymph % (Auto) 6.5 L, [place] % (Auto) 11.0 H, Eos % (Auto) 2.1, Baso % (Auto) 0.1, Absolute Neuts (auto) 10.9 H, Absolute Lymphs (auto) 0.89, Nucleated RBC % 0, Sodium 141, Potassium 3.1 L, Chloride 110 H, Carbon Dioxide 21.9, Anion Gap 10, BUN 63 H, Creatinine 1.99 H, Estim Creat Clear Calc 19.62 L, Est GFR (MDRD) Non-Af 24 L, BUN/Creatinine Ratio 31.5 H, Glucose 89, Calcium 8.2 Micro: Microbiology 11/17/24 13:37 Blood Culture (Wb) - Anticubital Left Blood Culture - Final No growth in 5 days. 11/17/24 13:37 Blood Culture (Wb) - Anticubital Right Blood Culture - Final No growth in 5 days. 11/17/24 18:55 Mucosa - Nasopharyngeal Respiratory Panel (PCR) - Final 11/17/24 18:30 Nasal Secretion MRSA (PCR) - Final 11/17/24 18:30 Urine Catheter - Coon Legionella Antigen - Final 11/17/24 18:30 Urine Catheter - Coon Streptococcus pneumoniae Antigen (M - Final 11/17/24 13:20 Mucosa - Nose SARS-CoV-2, Influenza & RSV (PCR) - Final Physical Exam Narrative GENERAL: Much more interactive HEENT: Atraumatic; normocephalic EYES; Anicteric, Normal Conjunctiva NECK; supple, normal thyroid, RESPIRATORY: Diminished to auscultation CARDIOVASCULAR: Regular S1 S2, GI: soft, normoactive bowel sounds, : No Renal angle tenderness; EXTREMITIES: No edema, no clubbing, MUSCULOSKELETAL: no muscle wasting NEURO: Awake; no lateralizing signs. SKIN: No Rash PSYCH; Flat affect Assessment & Plan Assessment/Plan (1) Septic shock: PLAN: Plan Patient is an 84-year-old lady who was admitted with progressive generalized weakness and low back pain imaging studies obtained on admission demonstrated bilateral airspace opacities compatible with pneumonitis/pneumonia. An assessment of septic shock secondary to pneumonia made admitted to the intensive care unit for further management 1. Septic shock ? Secondary to pneumonia Patient presented with progressive generalized weakness was found to be hypotensive with elevated WBC count and elevated lactic acid levels. Patient was admitted to the intensive care unit managed with IV fluid resuscitation, broad-spectrum antibiotic therapy after cultures have been sent patient placed on Levophed and still remains on Levophed as of the morning of 11/18/2024. Response to therapy being monitored with serial lactic acid levels ?11/19/2024; patient was noted to have low urine output did receive fluid bolus ? 11/20/2024 2. Levophed was weaned off 2 days prior and subsequently transferred to the progressive care unit. Patient cultures so far negative to date 2. Abnormal urinalysis ? Patient did not have pyuria however had elevated leukocyte Estrace patient remains on broad-spectrum antibiotic therapy cultures pending -Patient has a Coon catheter in place with some trace hematuria. Patient urine cultures apparently not sent on admission 3. Acute hypoxia ? Secondary to pneumonia management as discussed above patient was also placed on supplemental oxygen titrated to keep saturation greater than 90 4. Acute metabolic encephalopathy ? Multifactorial including patient septic shock hypoxia in addition patient was found to have hyperammonemia. Given the setting of impaired liver function did order lactulose ? 11/20/2024 patient continues to experience involuntary movement repeated ammonia levels. ? 11/22/2024; patient back to baseline lactulose discontinued 5. Elevated troponin secondary to demand ischemia from septic shock -Patient with elevated troponin of 482 and proBNP of nearly 22,000, suspect that this is part of the endorgan damage from her septic shock. Patient being managed with serial troponins ordered 2D echo for EF assessment ? 11/20/2024; 2D echo obtained on 11/17/2024 did show The left ventricular ejection fraction is 60 %. Normal LV size. The left atrium is severely enlarged. The right atrium is moderately enlarged. Mild (1+) tricuspid valve insufficiency. 6. Acute kidney injury ? Suspected to be secondary to ATN from septic shock. Baseline creatinine 0.7 creatinine on admission 2.45. Patient being managed with IV fluid with monitoring monitoring of response to therapy with serial BMP ; given the persistent impaired kidney function consult was placed to nephrology ?11/20/2024; patient kidney function continues to worsen nephrology on board 7. Acute transaminitis ? Secondary to shock liver. Repeated LFTs in a.m. for follow-up 8. Paroxysmal atrial fibrillation ? Rate controlled with atenolol which is currently being held given patient low blood pressure patient is also on systemic anticoagulation with rivaroxaban did continue 8. Essential hypertension ? Patient antihypertensives held given her presentation 9. Low back pain ? Imaging studies obtained demonstrated Mild compression of the inferior endplates, L3 and L4 may be related to remote trauma. Patient being managed with pain meds as well as muscle relaxant 10. Psoriatic arthritis -On Skyrizi every 3 month self injection 10. GERD -Continue home famotidine 11. DVT prophylaxis ? Already anticoagulated with rivaroxaban 12. Physical deconditioning ? Requested for PT OT eval and social and political studies professor to assist with discharge planning ? 11/21/2024; patient agrees on being discharged to group home facility 13. Hypernatremia ? Started patient on 0.45 saline with repeat labs ordered in a.m. ? 11/22/2024; sodium levels down to 142 14. Hypokalemia -Corrected per protocol 15. Oral candidiasis ? Patient started on nystatin swish and swallow Time spent in the patient's overall evaluation,decision-making process, review of diagnostic data, adjustment of management, discussion with other providers, nursing nursing and ancillary staff involved in patient's care documentation, 36 minutes Charges/Coding Visit Charges Inpatient E&M: 94206 Subs Hosp L2
[2024-11-23 09:00] VITALS: BP 163/96; PULSE 72; RESP 18; TEMP 36.8; O2SAT 95
[2024-11-23] MEDS: NYSTATIN 500,000 UNIT/5 ML UDC 500000 UNIT PO ×4 (09:27→22:09)
[2024-11-23] MEDS: Lidocaine 5% Patch 2 PATCH TOPICAL (09:29)
[2024-11-23] MEDS: Arthritis Pain Compound 60 CLICK TUBE TOPICAL ×2 (09:29→22:09)
[2024-11-23] MEDS: Ensure Plus High Protein 120 ML LIQUID PO (09:29)
[2024-11-23] MEDS: Famotidine 20 MG Tablet PO (09:29)
[2024-11-23] MEDS: Piperacil/Tazobactam 3.375 GM in 0.9% Normal Saline (50mL MB+) 50 ML IV ×2 (09:31→22:07)
[2024-11-23 12:20] LABS: Platelet Estimate SLT DEC (ADEQ)
--- NOTE | 2024-11-23 14:24 | PCM.PN.REN ---
Subjective Subjective no new events Objective Data Objective Data Vital Signs: Vital Signs Temp Pulse Resp BP Pulse Ox O2 Del Method O2 Flow Rate 98.2 F 72 18 163/96 H 95 Nasal Cannula 2 11/23/24 09:00 11/23/24 09:00 11/23/24 09:00 11/23/24 09:00 11/23/24 09:00 11/23/24 09:44 11/23/24 13:54 Oxygen Flow Rate (L/min) 2 Oxygen Delivery Method Nasal Cannula Weight: 76.8 kg Body Mass Index (BMI) 33.0 Intake & Output: Intake and Output for Last 24 Hours 11/21/24 11/22/24 11/23/24 23:59 23:59 23:59 Intake Total 1125 / 1125 3895 / 3895 2792.92 / 2792.92 Output Total 975 / 975 151 / 151 1050 / 1050 Balance 150 / 150 3744 / 3744 1742.92 / 1742.92 Lab / Micro Data 11/23/24 04:45 11/23/24 04:45 Labs: Laboratory Results - last 24 hr 11/23/24 04:45: WBC 13.7 H, RBC 4.47, Hgb 14.6, Hct 44.8, MCV 100.2 H, MCH 32.7 H, MCHC 32.6, RDW Std Deviation 49.8 H, RDW Coeff of Mildred 13.5, Plt Count 114 L, MPV 11.5, Immature Gran % (Auto) 0.500, Neut % (Auto) 79.8 H, Lymph % (Auto) 6.5 L, [place] % (Auto) 11.0 H, Eos % (Auto) 2.1, Baso % (Auto) 0.1, Absolute Neuts (auto) 10.9 H, Absolute Lymphs (auto) 0.89, Nucleated RBC % 0, Platelet Estimate SLT DEC, Sodium 141, Potassium 3.1 L, Chloride 110 H, Carbon Dioxide 21.9, Anion Gap 10, BUN 63 H, Creatinine 1.99 H, Estim Creat Clear Calc 19.62 L, Est GFR (MDRD) Non-Af 24 L, BUN/Creatinine Ratio 31.5 H, Glucose 89, Calcium 8.2 Micro: Microbiology 11/17/24 13:37 Blood Culture (Wb) - Anticubital Left Blood Culture - Final No growth in 5 days. 11/17/24 13:37 Blood Culture (Wb) - Anticubital Right Blood Culture - Final No growth in 5 days. 11/17/24 18:55 Mucosa - Nasopharyngeal Respiratory Panel (PCR) - Final 11/17/24 18:30 Nasal Secretion MRSA (PCR) - Final 11/17/24 18:30 Urine Catheter - Llanos Legionella Antigen - Final 11/17/24 18:30 Urine Catheter - L[place]os Streptococcus pneumoniae Antigen (M - Final 11/17/24 13:20 Mucosa - Nose SARS-CoV-2, Influenza & RSV (PCR) - Final Physical Exam Narrative alert and oriented, sitting in chair no obvious distress lungs clear anteriorly abdomen soft, nontender no edema llanos Assessment & Plan Assessment/Plan (1) NAT (acute kidney injury): PLAN: - NAT, baseline creatinine was normal in 2021, gap in labs until this hospitalization. NAT likely secondary to septic shock, pneumonia, hypotension. Creatinine 2.4 on admission--> SCr 2.2 11/18, creatinine 2.6 mg/dL for a few days, Cr better now
[2024-11-23 15:48] VITALS: BP 163/89; PULSE 98; RESP 20; TEMP 36.8; O2SAT 96
[2024-11-23] MEDS: Rivaroxaban 15 MG Tablet PO (16:55)
[2024-11-23] MEDS: Potassium Chloride Oral Tablet 20 MEQ 40 MEQ PO (16:55)
[2024-11-23 21:58] VITALS: BP 149/83; PULSE 92; RESP 16; TEMP 36.8; O2SAT 95
[2024-11-23] MEDS: oxyCODONE 5 MG Tablet PO (22:06)
[2024-11-23] MEDS: MELATONIN 3 MG TABLET PO (22:06)
[2024-11-23] MEDS: 0.9% Saline Lock 10 ML Syringe IV (22:07)
[2024-11-24 03:40] VITALS: BP 132/60; PULSE 82; RESP 16; TEMP 36.6; O2SAT 96
[2024-11-24 04:41] VITALS: BMI 33.0
[2024-11-24 05:08] LABS: NRBC Flagged by Analyzer 0 % (0-5)
[2024-11-24 05:13] LABS: Absolute Lymphocyte Count 0.96 X10^3/uL (0.83-4.51); Absolute Neutrophil Count 11.3 X10^3/uL (2.0-7.7); Basophil# 0.03 X10^3/uL; Basophil% 0.2 % (0-1); Eosinophil# 0.43 X10^3/uL; Hematocrit 41.9 % (37-47); Hemoglobin 13.8 g/dL (12.0-15.0); Lymphocyte # 0.96 X10^3/ul (0.83-4.51); Lymphocyte % 6.6 % (19-41); Mean Corp Hgb Conc 32.9 g/dL (32-36); Mean Corpuscular Hgb 32.9 pg (27.0-32.0); Mean Platelet Vol. 11.2 fl (6.2-12.0); Monocyte# 1.64 X10^3/uL; Monocyte% 11.3 % (0-10); Neutrophil # 11.32 X10^3/uL (2.7-7.7); Neutrophil % 78.3 % (47-70); POSITIVE DIFFERENTIAL YES; Platelet Count 104 K/mm3 (150-450); RBC Distribution Width CV 13.5 % (11.6-14.6); RBC Distribution Width SD 49.5 fl (35.1-43.9); Red Blood Count 4.19 M/mm3 (4.2-5.4); White Blood Count 14.5 K/mm3 (4.4-11.0)
[2024-11-24 05:16] LABS: Differential Indicated SCAN CRITERIA MET
[2024-11-24 05:56] LABS: Anisocytosis 1+; Crenated RBC RARE; Differential Comment SCANNED; Macrocytosis 1+; Ovalocyte 1+; Platelet Estimate SLT DEC (ADEQ)
[2024-11-24 05:57] LABS: Tear Drop Cell RARE
[2024-11-24 07:02] VITALS: O2SAT 95
[2024-11-24 07:19] LABS: Anion Gap 9 (5-15); BUN 53 mg/dL (4-19); BUN/Creat Ratio 28.1 RATIO (10-20); Calcium,Total 8.2 mg/dL (7.6-11.0); Carbon Dioxide 21.8 mmol/L (21.0-32.0); Chloride 112 mmol/L (98-108); Creatinine, Serum 1.89 mg/dL (0.70-1.20); EST Glomerular Filtration Rate 26 (>60); Estimated Creatinine Clearance 20.66 ml/min (50-250); Glucose 82 mg/dL (70-99); Potassium 3.6 mmol/L (3.3-5.1); Sodium Level 143 mmol/L (133-145)
--- NOTE | 2024-11-24 08:44 | PCM.TXEXTCAR ---
Diet Diet Order/Speech Therapy: 11/18/24 12:43 Diet: Regular - General Food consistency:: Soft & Bite Sized Liquid Consistency:: Regular/Thin Diet Comments: assist as needed, needs encouragement for po intake Routine Orders/Code Status Code Status: Full Code DC O2, CPAP, BIPAP needs Home O2 Discharge instructions: Yes Type of respiratory needs?: Oxygen (2) Oxygen frequency: Continuous Continuous oxygen liters per minute: 2 Problem/Diagnosis (1) NAT (acute kidney injury): Status: Acute Code(s): N17.9 - Acute kidney failure, unspecified Plan Patient is an 84-year-old lady who was admitted with progressive generalized weakness and low back pain imaging studies obtained on admission demonstrated bilateral airspace opacities compatible with pneumonitis/pneumonia. An assessment of septic shock secondary to pneumonia made admitted to the intensive care unit for further management 1. Septic shock ? Secondary to pneumonia Patient presented with progressive generalized weakness was found to be hypotensive with elevated WBC count and elevated lactic acid levels. Patient was admitted to the intensive care unit managed with IV fluid resuscitation, broad-spectrum antibiotic therapy after cultures have been sent patient placed on Levophed and still remains on Levophed as of the morning of 11/18/2024. Response to therapy being monitored with serial lactic acid levels ?11/19/2024; patient was noted to have low urine output did receive fluid bolus ? 11/20/2024 2. Levophed was weaned off 2 days prior and subsequently transferred to the progressive care unit. Patient cultures so far negative to date 2. Abnormal urinalysis ? Patient did not have pyuria however had elevated leukocyte Estrace patient remains on broad-spectrum antibiotic therapy cultures pending -Patient has a Coon catheter in place with some trace hematuria. Patient urine cultures apparently not sent on admission 3. Acute hypoxia ? Secondary to pneumonia management as discussed above patient was also placed on supplemental oxygen titrated to keep saturation greater than 90 4. Acute metabolic encephalopathy ? Multifactorial including patient septic shock hypoxia in addition patient was found to have hyperammonemia. Given the setting of impaired liver function did order lactulose ? 11/20/2024 patient continues to experience involuntary movement repeated ammonia levels. ? 11/22/2024; patient back to baseline lactulose discontinued 5. Elevated troponin secondary to demand ischemia from septic shock -Patient with elevated troponin of 482 and proBNP of nearly 22,000, suspect that this is part of the endorgan damage from her septic shock. Patient being managed with serial troponins ordered 2D echo for EF assessment ? 11/20/2024; 2D echo obtained on 11/17/2024 did show The left ventricular ejection fraction is 60 %. Normal LV size. The left atrium is severely enlarged. The right atrium is moderately enlarged. Mild (1+) tricuspid valve insufficiency. 6. Acute kidney injury ? Suspected to be secondary to ATN from septic shock. Baseline creatinine 0.7 creatinine on admission 2.45. Patient being managed with IV fluid with monitoring monitoring of response to therapy with serial BMP ; given the persistent impaired kidney function consult was placed to nephrology ?11/20/2024; patient kidney function continues to worsen nephrology on board 7. Acute transaminitis ? Secondary to shock liver. Repeated LFTs in a.m. for follow-up 8. Paroxysmal atrial fibrillation ? Rate controlled with atenolol which is currently being held given patient low blood pressure patient is also on systemic anticoagulation with rivaroxaban did continue 8. Essential hypertension ? Patient antihypertensives held given her presentation 9. Low back pain ? Imaging studies obtained demonstrated Mild compression of the inferior endplates, L3 and L4 may be related to remote trauma. Patient being managed with pain meds as well as muscle relaxant 10. Psoriatic arthritis -On Skyrizi every 3 month self injection 10. GERD -Continue home famotidine 11. DVT prophylaxis ? Already anticoagulated with rivaroxaban 12. Physical deconditioning ? Requested for PT OT eval and psychosocial rehabilitation counselor to assist with discharge planning ? 11/21/2024; patient agrees on being discharged to intermediate facility 13. Hypernatremia ? Started patient on 0.45 saline with repeat labs ordered in a.m. ? 11/22/2024; sodium levels down to 142 14. Hypokalemia -Corrected per protocol 15. Oral candidiasis ? Patient started on nystatin swish and swallow Time spent in the patient's overall evaluation,decision-making process, review of diagnostic data, adjustment of management, discussion with other providers, nursing nursing and ancillary staff involved in patient's care documentation, 36 minutes Allergies/Procedures Done in Hospital Allergies No Known Allergies Allergy (Verified 11/17/24 12:43) Type of Care/Length of Stay Estimated LOS: Convalescent Care Less Than 30 days Type of Care Needed: Skilled Rehab Potential: Good Prognosis: Good Additional Orders/Day of Discharge Day of Discharge: 11/24/24 Dietary and Speech Recommendations Dietitian Recommendations/Changes: Continue regular diet per [employer] consistency/texture recommendations. As PO intake improves, recommend regular, no added salt diet. Will order 120ml EPHP 4x daily with medpass, prefers strawberry. Will monitor weight trends. Discharge Plan Admission Admit Date/Time: 11/17/24 16:40 Attending Provider: Kevin Robles Primary Care Provider: SILVIA GUTHRIE Consulting Providers: Elsy Perdomo; Izabel Arias; Daniel Hall Discharge Orders/Prescriptions Prescriptions: New nystatin 100,000 unit/mL Suspension 500,000 unit PO 4X/DAY 10 Days Qty: 200 0RF acetaminophen 325 mg Tablet 650 mg PO Q6H PRN PRN (Reason: Pain 1-10 Or Fever >100.7) Qty: 0 0RF melatonin 3 mg Tablet 3 mg PO QHS PRN PRN (Reason: Insomnia) Qty: 0 0RF lidocaine 5 % Adhesive Patch,Medicated 2 patch topical DAILY Qty: 0 0RF Protocol: *Topical Application Instructions APPLICATION INSTRUCTIONS: Apply to back pain oxycodone 5 mg Tablet 5 mg PO Q6H PRN PRN (Reason: Pain Score 6-10) 3 Days Qty: 12 0RF guaifenesin [Mucus Relief ER] 1,200 mg Tablet Extended Release 12hr 1,200 mg PO BID Qty: 0 0RF Ensure Plus High Protein 0.08 gram-1.5 kcal/mL Liquid 120 ml PO 4X/DAY Qty: 0 0RF sennosides-docusate sodium [Stimulant Laxative Plus] 8.6-50 mg Tablet 2 tab PO BID PRN PRN (Reason: Constipation) Qty: 0 0RF Continued atenolol 25 mg tablet 25 mg PO DAILY famotidine 20 mg tablet 20 mg PO DAILY folic acid 1 mg tablet 1 mg PO DAILY ipratropium bromide 0.02 % solution 2 ml inhalation DAILY Patient Comments: take 2 & 1/2 milliliters BY NEBULIZER by mouth and INTO THE LUNGS... (REFER TO PRESCRIPTION NOTES). Xarelto 20 mg tablet 20 mg PO DAILY amitriptyline 25 mg tablet 25 mg PO QHS furosemide 20 mg tablet 20 mg PO DAILY cholecalciferol (vitamin D3) 50 mcg (2,000 unit) capsule 50 mcg PO DAILY albuterol sulfate 90 mcg/actuation HFA aerosol inhaler 2 puff inhalation Q6H PRN PRN (Reason: dyspnea) tiotropium bromide [Spiriva with HandiHaler] 18 mcg capsule, w/inhalation device 1 cap inhalation PRN (Reason: shortness of breath ) Discontinued oxycodone-acetaminophen 5-325 mg tablet 1 tab PO TID PRN PRN (Reason: pain) Referrals / Follow Up: SILVIA GUTHRIE [Other] SILVIA GUTHRIE [Other] Disposition Disposition (needs filled in before D/C Order can be placed): Intermediate Facility
--- NOTE | 2024-11-24 08:51 | PCM.DC.SUM ---
Providers Date of Admission: 11/17/24 Date of Discharge: 11/24/24 Primary Care Physician: SILVIA GUTHRIE Consultations 11/17/24 17:50 Consult: Curing Pickling Packer / Pulmonary Medicine Routine Consulting Provider: Intensivists/Pulmonary Med Reason for Consult: septic shock EMERGENT Consult: No Notified: No Date Notified: 11/17/24 Time Notified: 16:53 11/17/24 21:56 Consult: Curing Pickling Packer / Pulmonary Medicine Routine Consulting Provider: Intensivists/Pulmonary Med Reason for Consult: septic shock EMERGENT Consult: No MD Notified: Yes Date Notified: 11/17/24 Time Notified: 21:56 Method of Notification: Answering Service 11/18/24 09:04 Consult: Pain Management Routine Consulting Provider: Daniel Hall Reason for Consult: Bilateral hip pain EMERGENT Consult: No MD Notified: Yes Date Notified: 11/18/24 Time Notified: 09:04 Method of Notification: Verbal 11/19/24 07:17 Consult: Nephrology Routine Consulting Provider: Izabel Arias Reason for Consult: NAT EMERGENT Consult: No MD Notified: Yes Date Notified: 11/19/24 Time Notified: 07:18 Method of Notification: Answering Service Reason For Visit: SEPTIC SHOCK Diagnosis Discharge Diagnosis (1) NAT (acute kidney injury): Status: Acute Code(s): N17.9 - Acute kidney failure, unspecified Plan Patient is an 84-year-old lady who was admitted with progressive generalized weakness and low back pain imaging studies obtained on admission demonstrated bilateral airspace opacities compatible with pneumonitis/pneumonia. An assessment of septic shock secondary to pneumonia made admitted to the intensive care unit for further management 1. Septic shock ? Secondary to pneumonia Patient presented with progressive generalized weakness was found to be hypotensive with elevated WBC count and elevated lactic acid levels. Patient was admitted to the intensive care unit managed with IV fluid resuscitation, broad-spectrum antibiotic therapy after cultures have been sent patient placed on Levophed and still remains on Levophed as of the morning of 11/18/2024. Response to therapy being monitored with serial lactic acid levels ?11/19/2024; patient was noted to have low urine output did receive fluid bolus ? 11/20/2024 2. Levophed was weaned off 2 days prior and subsequently transferred to the progressive care unit. Patient cultures so far negative to date 2. Abnormal urinalysis ? Patient did not have pyuria however had elevated leukocyte Estrace patient remains on broad-spectrum antibiotic therapy cultures pending -Patient has a Coon catheter in place with some trace hematuria. Patient urine cultures apparently not sent on admission 3. Acute hypoxia ? Secondary to pneumonia management as discussed above patient was also placed on supplemental oxygen titrated to keep saturation greater than 90 4. Acute metabolic encephalopathy ? Multifactorial including patient septic shock hypoxia in addition patient was found to have hyperammonemia. Given the setting of impaired liver function did order lactulose ? 11/20/2024 patient continues to experience involuntary movement repeated ammonia levels. ? 11/22/2024; patient back to baseline lactulose discontinued 5. Elevated troponin secondary to demand ischemia from septic shock -Patient with elevated troponin of 482 and proBNP of nearly 22,000, suspect that this is part of the endorgan damage from her septic shock. Patient being managed with serial troponins ordered 2D echo for EF assessment ? 11/20/2024; 2D echo obtained on 11/17/2024 did show The left ventricular ejection fraction is 60 %. Normal LV size. The left atrium is severely enlarged. The right atrium is moderately enlarged. Mild (1+) tricuspid valve insufficiency. 6. Acute kidney injury ? Suspected to be secondary to ATN from septic shock. Baseline creatinine 0.7 creatinine on admission 2.45. Patient being managed with IV fluid with monitoring monitoring of response to therapy with serial BMP ; given the persistent impaired kidney function consult was placed to nephrology ?11/20/2024; patient kidney function continues to worsen nephrology on board 7. Acute transaminitis ? Secondary to shock liver. Repeated LFTs in a.m. for follow-up 8. Paroxysmal atrial fibrillation ? Rate controlled with atenolol which is currently being held given patient low blood pressure patient is also on systemic anticoagulation with rivaroxaban did continue 8. Essential hypertension ? Patient antihypertensives held given her presentation 9. Low back pain ? Imaging studies obtained demonstrated Mild compression of the inferior endplates, L3 and L4 may be related to remote trauma. Patient being managed with pain meds as well as muscle relaxant 10. Psoriatic arthritis -On Skyrizi every 3 month self injection 10. GERD -Continue home famotidine 11. DVT prophylaxis ? Already anticoagulated with rivaroxaban 12. Physical deconditioning ? Requested for PT OT eval and clinical social work aide to assist with discharge planning ? 11/21/2024; patient agrees on being discharged to shelter facility 13. Hypernatremia ? Started patient on 0.45 saline with repeat labs ordered in a.m. ? 11/22/2024; sodium levels down to 142 14. Hypokalemia -Corrected per protocol 15. Oral candidiasis ? Patient started on nystatin swish and swallow Time spent in the patient's overall evaluation,decision-making process, review of diagnostic data, adjustment of management, discussion with other providers, nursing nursing and ancillary staff involved in patient's care documentation, 36 minutes Medications at Discharge Home Medications atenolol 25 mg tablet 25 mg PO DAILY 06/26/21 famotidine 20 mg tablet 20 mg PO DAILY 06/26/21 folic acid 1 mg tablet 1 mg PO DAILY supplement 06/26/21 ipratropium bromide 0.02 % solution for inhalation 2 ml inhalation DAILY 06/26/21 rivaroxaban 20 mg tablet (Xarelto) 20 mg PO DAILY 06/26/21 amitriptyline 25 mg tablet 25 mg PO QHS 11/17/24 cholecalciferol (vitamin D3) 50 mcg (2,000 unit) capsule 50 mcg PO DAILY 11/17/24 furosemide 20 mg tablet 20 mg PO DAILY 11/17/24 albuterol sulfate 90 mcg/actuation aerosol inhaler 2 puff inhalation Q6H PRN PRN dyspnea 11/18/24 tiotropium bromide 18 mcg capsule with inhalation device (Spiriva with HandiHaler) 1 cap inhalation PRN shortness of breath 11/18/24 acetaminophen 325 mg tablet 650 mg (2 x 325 mg) PO Q6H PRN PRN Pain 1-10 Or Fever >100.7 #0 tabs 11/24/24 food supplemt, lactose-reduced 0.08 gram-1.5 kcal/mL oral liquid (Ensure Plus High Protein) 120 ml PO 4X/DAY #0 mL 11/24/24 guaifenesin 1,200 mg tablet, extended release 12 hr (Mucus Relief ER) 1,200 mg PO BID #0 tabs 11/24/24 lidocaine 5 % topical patch 2 patch topical DAILY #0 ea 11/24/24 melatonin 3 mg tablet 3 mg PO QHS PRN PRN Insomnia #0 tabs 11/24/24 nystatin 100,000 unit/mL oral suspension 500,000 unit (5 mL) PO 4X/DAY 10 days #200 mL 11/24/24 oxycodone 5 mg tablet 5 mg PO Q6H PRN PRN Pain Score 6-10 3 days #12 tabs 11/24/24 sennosides 8.6 mg-docusate sodium 50 mg tablet (Stimulant Laxative Plus) 2 tab PO BID PRN PRN Constipation #0 tabs 11/24/24 Physical Exam Narrative GENERAL: Much more interactive HEENT: Atraumatic; normocephalic EYES; Anicteric, Normal Conjunctiva NECK; supple, normal thyroid, RESPIRATORY: Diminished to auscultation CARDIOVASCULAR: Regular S1 S2, GI: soft, normoactive bowel sounds, : No Renal angle tenderness; EXTREMITIES: No edema, no clubbing, MUSCULOSKELETAL: no muscle wasting NEURO: Awake; no lateralizing signs. SKIN: No Rash PSYCH; Flat affect Weight / BMI Weight Weight: 76.8 kg Body Mass Index (BMI) 33.0 ABG / Lab / Microbiology Data 11/24/24 03:25 11/24/24 03:25 Laboratory: Laboratory Results - last 24 hr 11/23/24 04:45: Diff Path Review December, Platelet Estimate SLT 11/24/24 03:25: WBC Cancelled 11/24/24 03:25: WBC 14.5 H, Corrected WBC Cancelled, RBC Cancelled 11/24/24 03:25: RBC 4.19 L, Hgb Cancelled 11/24/24 03:25: Hgb 13.8, Hct Cancelled 11/24/24 03:25: Hct 41.9, MCV Cancelled 11/24/24 03:25: MCV 100.0 H, MCH Cancelled 11/24/24 03:25: MCH 32.9 H, MCHC Cancelled 11/24/24 03:25: MCHC 32.9, RDW Std Deviation Cancelled 11/24/24 03:25: RDW Std Deviation 49.5 H, RDW Coeff of Mildred Cancelled 11/24/24 03:25: RDW Coeff of Mildred 13.5, Plt Count Cancelled 11/24/24 03:25: Plt Count 104 L, MPV Cancelled 11/24/24 03:25: MPV 11.2, Immature Gran % (Auto) Cancelled 11/24/24 03:25: Immature Gran % (Auto) 0.600, Neut % (Auto) Cancelled 11/24/24 03:25: Neut % (Auto) 78.3 H, Lymph % (Auto) Cancelled 11/24/24 03:25: Lymph % (Auto) 6.6 L, [place] % (Auto) Cancelled 11/24/24 03:25: [place] % (Auto) 11.3 H, Eos % (Auto) Cancelled 11/24/24 03:25: Eos % (Auto) 3.0, Baso % (Auto) Cancelled 11/24/24 03:25: Baso % (Auto) 0.2, Absolute Neuts (auto) Cancelled 11/24/24 03:25: Absolute Neuts (auto) 11.3 H, Absolute Lymphs (auto) Cancelled 11/24/24 03:25: Absolute Lymphs (auto) 0.96, Total Counted Cancelled, Neutrophils % (Manual) Cancelled, Band Neutrophils % Cancelled, Lymphocytes % (Manual) Cancelled, Monocytes % (Manual) Cancelled, Eosinophils % (Manual) Cancelled, Basophils % (Manual) Cancelled, Metamyelocytes % Cancelled, Myelocytes % Cancelled, Promyelocytes % Cancelled, Blast Cells % Cancelled, Plasma Cell % (Manual) Cancelled, Other Cells % Cancelled, Nucleated RBC % Cancelled 11/24/24 03:25: Nucleated RBC % 0, Nucleated RBCs/100 WBC Cancelled, Differential Comment Cancelled 11/24/24 03:25: Differential Comment SCANNED, Diff Path Review Cancelled 11/24/24 03:25: Diff Path Review May foll, Hypersegmented Neuts Cancelled, Atypical Lymphocytes Cancelled, Reactive Lymphocytes Cancelled, Smudge Cells Cancelled, Toxic Granulation Cancelled, Toxic Vacuolation Cancelled, Dohle Bodies Cancelled, Lew Rods Cancelled, Platelet Estimate Cancelled 11/24/24 03:25: Platelet Estimate SLT DEC, Plt Morphology Comment Cancelled, RBC Morphology Cancelled 11/24/24 03:25: RBC Morphology Cancelled, Polychromasia Cancelled, Hypochromasia Cancelled, Basophilic Stippling Cancelled, Anisocytosis Cancelled 11/24/24 03:25: Anisocytosis 1+, Microcytosis Cancelled, Macrocytosis Cancelled 11/24/24 03:25: Macrocytosis 1+, Spherocytes Cancelled, Sickle Cells Cancelled, Target Cells Cancelled, Tear Drop Cells Cancelled 11/24/24 03:25: Tear Drop Cells RARE, Ovalocytes Cancelled 11/24/24 03:25: Ovalocytes 1+, Stomatocytes Cancelled, [place] Bodies Cancelled, [place] Cells Cancelled, Bite Cells Cancelled, Crenated Cell Cancelled 11/24/24 03:25: Crenated Cell RARE, Acanthocytes (Spur) Cancelled, Rouleaux Cancelled, Schistocytes Cancelled, Sodium 143, Potassium 3.6, Chloride 112 H, Carbon Dioxide 21.8, Anion Gap 9, BUN 53 H, Creatinine 1.89 H, Estim Creat Clear Calc 20.66 L, Est GFR (MDRD) Non-Af 26 L, BUN/Creatinine Ratio 28.1 H, Glucose 82, Calcium 8.2 Microbiology: Microbiology 11/17/24 13:37 Blood Culture (Wb) - Anticubital Left Blood Culture - Final No growth in 5 days. 11/17/24 13:37 Blood Culture (Wb) - Anticubital Right Blood Culture - Final No growth in 5 days. 11/17/24 18:55 Mucosa - Nasopharyngeal Respiratory Panel (PCR) - Final 11/17/24 18:30 Nasal Secretion MRSA (PCR) - Final 11/17/24 18:30 Urine Catheter - Coon Legionella Antigen - Final 11/17/24 18:30 Urine Catheter - Coon Streptococcus pneumoniae Antigen (M - Final 11/17/24 13:20 Mucosa - Nose SARS-CoV-2, Influenza & RSV (PCR) - Final D/C Instructions Discharge Diet: 8 Cup Fluid Restriction and 2000 mg Sodium Diet Discharge Activity: Return to Normal Activity Call your doctor if you observe: Fever of 101 or Higher, Shortness of breath, Fainting spells and Chest pain DC O2, CPAP, BIPAP Needs Home O2 Discharge instructions: Yes Type of respiratory needs?: Oxygen (2) Oxygen frequency: Continuous Continuous oxygen liters per minute: 2 DC home with Oxygen: Yes Home O2 MD Review: I have reviewed the oxygen testing, and the patient qualifies for home oxygen equipment and portability. The patient is mobile in the home and the community. Meaningful Use Info Meaningful Use Meaningful Use Diagnoses (Choose all that apply): None applicable Ischemic Stroke Statin Dosing Therapy Reference: STATIN DOSE THERAPY REFERENCE: * Patients > 75 years receive moderate or high dose statin therapy. * Patients 75 years or YOUNGER should receive HIGH intensity statin dose unless contraindicated. You will be required to document reason for non-treatment if statin daily dose does not meet guidelines. HIGH DOSE STATIN THERAPY DAILY Atorvastatin > than or = to 40 mg Rosuvastatin > than or = to 20 mg Amlodipine + Atorvastatin > than or = to 2.5/40 mg Ezetimibe + Simvastatin 10/80 mg Simvastatin 80mg Discharge Plan Admission Admit Date/Time: 11/17/24 16:40 Attending Provider: Kevin Robles Primary Care Provider: SILVIA GUTHRIE Consulting Providers: Elsy Perdomo; Izabel Arias; Daniel Hall Discharge Orders/Prescriptions Prescriptions: New nystatin 100,000 unit/mL Suspension 500,000 unit PO 4X/DAY 10 Days Qty: 200 0RF acetaminophen 325 mg Tablet 650 mg PO Q6H PRN PRN (Reason: Pain 1-10 Or Fever >100.7) Qty: 0 0RF melatonin 3 mg Tablet 3 mg PO QHS PRN PRN (Reason: Insomnia) Qty: 0 0RF lidocaine 5 % Adhesive Patch,Medicated 2 patch topical DAILY Qty: 0 0RF Protocol: *Topical Application Instructions APPLICATION INSTRUCTIONS: Apply to back pain oxycodone 5 mg Tablet 5 mg PO Q6H PRN PRN (Reason: Pain Score 6-10) 3 Days Qty: 12 0RF guaifenesin [Mucus Relief ER] 1,200 mg Tablet Extended Release 12hr 1,200 mg PO BID Qty: 0 0RF Ensure Plus High Protein 0.08 gram-1.5 kcal/mL Liquid 120 ml PO 4X/DAY Qty: 0 0RF sennosides-docusate sodium [Stimulant Laxative Plus] 8.6-50 mg Tablet 2 tab PO BID PRN PRN (Reason: Constipation) Qty: 0 0RF Continued atenolol 25 mg tablet 25 mg PO DAILY famotidine 20 mg tablet 20 mg PO DAILY folic acid 1 mg tablet 1 mg PO DAILY ipratropium bromide 0.02 % solution 2 ml inhalation DAILY Patient Comments: take 2 & 1/2 milliliters BY NEBULIZER by mouth and INTO THE LUNGS... (REFER TO PRESCRIPTION NOTES). Xarelto 20 mg tablet 20 mg PO DAILY amitriptyline 25 mg tablet 25 mg PO QHS furosemide 20 mg tablet 20 mg PO DAILY cholecalciferol (vitamin D3) 50 mcg (2,000 unit) capsule 50 mcg PO DAILY albuterol sulfate 90 mcg/actuation HFA aerosol inhaler 2 puff inhalation Q6H PRN PRN (Reason: dyspnea) tiotropium bromide [Spiriva with HandiHaler] 18 mcg capsule, w/inhalation device 1 cap inhalation PRN (Reason: shortness of breath ) Discontinued oxycodone-acetaminophen 5-325 mg tablet 1 tab PO TID PRN PRN (Reason: pain) Referrals / Follow Up: SILVIA GUTHRIE [Other] SILVIA GUTHRIE [Other] Disposition Disposition (needs filled in before D/C Order can be placed): [facility] Facility Charges/Coding Visit Charges Inpatient E&M: 19527 Disch Hosp >30min
[2024-11-24 09:12] VITALS: BP 148/66; PULSE 87; RESP 16; TEMP 36.8; O2SAT 97
[2024-11-24] MEDS: Lidocaine 5% Patch 2 PATCH TOPICAL (09:19)
[2024-11-24] MEDS: NYSTATIN 500,000 UNIT/5 ML UDC 500000 UNIT PO (09:19)
[2024-11-24] MEDS: Famotidine 20 MG Tablet PO (09:21)
[2024-11-24] MEDS: Piperacil/Tazobactam 3.375 GM in 0.9% Normal Saline (50mL MB+) 50 ML IV (09:21)
[2024-11-24] MEDS: Arthritis Pain Compound 60 CLICK TUBE TOPICAL (09:21)
[2024-11-24] MEDS: oxyCODONE 5 MG Tablet PO (10:57)
== END 2024-11-24 11:29 | disposition skilled nursing facility (03) | DRG 871 ==
LOC: ED 15:11 → ICU 17:03 → PCU 11-19 17:00
PROVIDERS: Internal Medicine; Admitting Provider Internal Medicine; Emergency Provider Emergency Medicine; Visit Provider Internal Medicine
DX: A41.9 Sepsis, unspecified organism (principal); G93.41 Metabolic encephalopathy; R65.21 Severe sepsis with septic shock; R57.1 Hypovolemic shock; E87.0 Hyperosmolality and hypernatremia; B37.0 Candidal stomatitis; J44.0 Chronic obstructive pulmonary disease with (acute) lower respiratory infection; I24.89 Other forms of acute ischemic heart disease; N17.9 Acute kidney failure, unspecified; I48.0 Paroxysmal atrial fibrillation; E86.9 Volume depletion, unspecified; I11.0 Hypertensive heart disease with heart failure; L40.50 Arthropathic psoriasis, unspecified; I50.9 Heart failure, unspecified; K21.9 Gastro-esophageal reflux disease without esophagitis; M54.50 Low back pain, unspecified; E87.6 Hypokalemia; I95.9 Hypotension, unspecified; M25.551 Pain in right hip; M25.552 Pain in left hip; R11.0 Nausea; R19.7 Diarrhea, unspecified; R25.1 Tremor, unspecified; Z90.710 Acquired absence of both cervix and uterus; Z87.891 Personal history of nicotine dependence; Z79.01 Long term (current) use of anticoagulants; R79.89 Other specified abnormal findings of blood chemistry; R09.02 Hypoxemia; Z90.49 Acquired absence of other specified parts of digestive tract; Z79.899 Other long term (current) drug therapy; Z99.81 Dependence on supplemental oxygen; R53.81 Other malaise; R82.90 Unspecified abnormal findings in urine
CPT/HCPCS: 36415; 71045; 71250; 73502; 74176; 80048; 80053; 80076; 81001; 82140; 83605; 83690; 83735; 83880; 84100; 84443; 84484; 85025; 85610; 87040; 87449; 87631; 87633; 87641; 92526; 92610; 93005; 93306; 94640; 94762; 97163; 97166; 97530; 97535; 97802; 97803; 99285; Q9957; A4216; C8929; J0612; J2405

== ENCOUNTER 2024-12-24 15:19 | Inpatient (IN) | payer MEDICARE, MEDICAID, SELFPAY ==
[2024-12-24] VITALS (52 sets, daily range): BP systolic 108–170; BP diastolic 63–147; PULSE 51–81; RESP 10–37; TEMP 36.6–37.2; O2SAT 83–100; BMI 27.8; BMI 26.9
--- NOTE | 2024-12-24 15:53 | CT_ITS ---
PROCEDURE: SPINE LUMBAR WITHOUT CONTRAST 12/24/2024 REASON FOR EXAM: BACK PAIN TECHNIQUE: Lumbar spine CT without contrast. Contiguous axial scans of 2.5 mm slice thicknesses. Sagittal and coronal reconstruction images were obtained. One or more dose reduction techniques were used (e.g., automated exposure control, adjustment of mA and/or kv according to patient size, use of iterative reconstruction technique). COMPARISON: None. RADIATION DOSE SUMMARY: DLP: 535.28 mGycm FINDINGS: Vertebra: Mild compression abnormality of the inferior endplate of L3. Compression fracture of the L2 vertebra involving the superior and inferior endplates. Loss of height in the range of 50%. Osteoporosis with areas of osteolysis throughout the lower thoracic and lumbar spine. Alignment: Very mild levocurvature. Grade 1-2 anterolisthesis of L5 on S1 by approximately 1.1 cm. Discs: Degenerative disc space narrowing at T11-T12 T12-L1 and L5-S1. Vacuum disc phenomena is seen at L4-L5.. Diffuse annular bulging at L3-L4 and L4-L5. Foramens: Unremarkable. Facets: Mild facet arthropathy at L5-S1. Sacroiliac Joints: Normal. Soft tissues: Vascular: Atherosclerotic calcific disease of the aortoiliac arteries.. Atherosclerotic calcific disease involving the splenic artery. Mild renovascular calcifications on the left. CT/Spine Lumbar without Contrast IMPRESSION: 1. Compression abnormalities of the L2 and L3 vertebral bodies may be acute. Marked osteoporosis is seen and there are suspected osteolytic areas throughout the lower thoracic and lumbar spine raisi ng concern for metastatic disease. Consider MRI for further evaluation. 2. Degenerative disc disease. 3. Diffuse annular bulging at L3-4 and L4-5. 4. Other nonacute findings detailed above. Reading Location: [facility]
--- NOTE | 2024-12-24 15:54 | EKG12_ITS ---
Test Reason : BACK PAIN Blood Pressure : */* mmHG Vent. Rate : 62 BPM Atrial Rate : * BPM P-R Int : * ms QRS Dur : 80 ms QT Int : 444 ms P-R-T Axes : * 47 -18 degrees QTcB Int : 450 ms Atrial fibrillation Nonspecific T wave abnormality Abnormal ECG Confirmed by Weston Sheth ([id number]), fan mail editor CHARLA GARIBAY ([id number]) on 12/27/2024 12:06:06 PM Referred By: CARLIN Confirmed By: Weston Sheth
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
[2024-12-24] MEDS: Morphine 4 MG/ML Syringe IV (16:11)
[2024-12-24] MEDS: Ondansetron 4 MG/2 ML Vial IV (16:11)
[2024-12-24] MEDS: 0.9% Normal Saline (1000mL) 1,000 ML 150 ML IV (16:14)
--- NOTE | 2024-12-24 16:25 | RAD_ITS ---
PROCEDURE: CHEST 1 VIEW (PORTABLE), 12/24/2024 REASON FOR EXAM: CORONARY ARTERY DISEASE TECHNIQUE: PA and lateral views of the chest were obtained. COMPARISON: 11/17/2024 FINDINGS: Heart: Similar cardiomegaly. Mediastinum: Similar contours including widening of the RIGHT paratracheal stripe. Trace visible atherosclerosis in the arch. Mild central vascular prominence. Lungs/pleura: No focal consolidation. No pleural effusion or visible pneumothorax. Redemonstrated granuloma on the RIGHT. Bones: Reverse geometry RIGHT shoulder arthroplasty. Demineralization. Degenerative changes of the AC joints. Demineralization. Lines and support devices: None. Other: None. RAD/Chest 1 View (Portable) IMPRESSION: 1. Cardiomegaly without overt pulmonary edema 2. Additional description as above. Reading Location: [id number]
[2024-12-24 16:35] LABS: Absolute Lymphocyte Count 2.43 X10^3/uL (0.83-4.51); Absolute Neutrophil Count 8.2 X10^3/uL (2.0-7.7); Basophil# 0.06 X10^3/uL; Basophil% 0.5 % (0-1); Eosinophil# 0.14 X10^3/uL; Eosinophils% 1.2 % (0-5); Hematocrit 43.2 % (37-47); Lymphocyte # 2.43 X10^3/ul (0.83-4.51); Lymphocyte % 20.6 % (19-41); Mean Corp Hgb Conc 32.4 g/dL (32-36); Mean Corpuscular Hgb 32.1 pg (27.0-32.0); Mean Corpuscular Volume 99.1 fL (81-99); Mean Platelet Vol. 10.4 fl (6.2-12.0); Monocyte% 7.6 % (0-10); NRBC Flagged by Analyzer 0 % (0-5); Neutrophil # 8.21 X10^3/uL (2.7-7.7); Neutrophil % 69.6 % (47-70); Platelet Count 212 K/mm3 (150-450); RBC Distribution Width CV 14.4 % (11.6-14.6); Red Blood Count 4.36 M/mm3 (4.2-5.4); White Blood Count 11.8 K/mm3 (4.4-11.0)
[2024-12-24 16:57] LABS: ALB/GLOB Ratio 1.1 RATIO (0.9-2.4); AST(SGOT) 32 U/L (<=31); Alanine Aminotransfer ALT/SGPT 20 U/L (<=34); Albumin, Serum 3.1 g/dL (3.4-4.8); Alkaline Phosphatase 157 U/L (35-104); Anion Gap 7 (5-15); BUN 23 mg/dL (4-19); BUN/Creat Ratio 35.9 RATIO (10-20); Calcium,Total 9.2 mg/dL (7.6-11.0); Carbon Dioxide 27.7 mmol/L (21.0-32.0); Chloride 106 mmol/L (98-108); Creatinine, Serum 0.65 mg/dL (0.70-1.20); EST Glomerular Filtration Rate 87 (>60); Globulin 2.9 g/dL (2.2-4.2); Glucose 106 mg/dL (70-99); Potassium 3.8 mmol/L (3.3-5.1); Protein, Total 5.9 g/dL (5.9-8.4); Sodium Level 141 mmol/L (133-145); Total Bilirubin 0.71 mg/dL (0.00-1.30)
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
--- NOTE | 2024-12-24 19:18 | PCM.HP.STD ---
[facility] - General General Date of Admission: 12/24/24 Date of Service: 12/24/24 Chief Complaint: Severe Back Pain. [facility] Narrative LESLI ROSALES, is a 84 F with a past medical history of essential hypertension; on a atenolol and furosemide, overweight; with a BMI of 27.8 this admission, paroxysmal atrial fibrillation; on rivaroxaban, chronic diastolic CHF; with preserved LVEF ~60% with normal LV size, LA severely enlarged RA moderately enlarged with mild 1+ tricuspid valve insufficiency (11/17/2024), history of tobacco abuse; with subsequent COPD on tiotropium bromide daily as needed and every 6 as needed albuterol, history of depression with anxiety; currently not on treatment, GERD; on famotidine, history of psoriatic arthritis; on risankizumab, history of shingles, history of proximal fracture of the Right humerus, OA; with chronic bilateral hip and back pain on lidocaine patch and as needed oxycodone 3 times daily with recent admission here from November 17, 2024 to November 24, 2024 for treatment of septic shock secondary to pneumonia complicated by acute hypoxia, acute metabolic encephalopathy and AE CHF with elevated NT pro-BNP II of ~22K and elevated troponin of 482 pg/mL attributed to acute cardiac strain from septic shock compounded by NAT and acute transaminitis due to shock liver resulting in severe physical deconditioning with patient discharged to alf facility in [place] for subacute rehabilitation who now re-presents to [facility] ER complaining of severe back pain. Ms. Rosales reports she has had chronic back pain for the past 5 months which was made worse after her had had fallen backward twice in August 2024 and she tried to help assist him in getting up with pain since that time. She then apparently drove herself to [facility] where she had a CT scan of the spine which showed no acute fractures at that time and she was placed on analgesics. Unfortunately, her symptoms have only worsened since that time with pain worse with movement, severe, sharp and radiating into both hips. According to the ER physician patient apparently discharged herself from her extended care facility on December 09, 2024 after her insurance stopped paying. She states her back pain is now so severe she is urinating and defecating into a towel because she is too sore to get up - so she finally decided to come in for further evaluation and treatment. In the ER she was noted to have a lumbar CT without contrast that revealed compression abnormalities of the L2 and L3 vertebral bodies which may be acute with marked osteoporosis and suspected osteolytic lesions throughout the lower thoracic and lumbar spine raising concern for metastatic disease with MRI recommended for further evaluation in addition to degenerative disc disease, diffuse annular bulging at L3-L4 and L4-L5 complicated by clinical evidence of Generalized Weakness with Ambulatory Dysfunction with Leukocytosis of 11.8K present on admission with UA positive for Acute Cystitis; with microscopic hematuria but otherwise unremarkable laboratory studies and vital signs. The ER physician spoke to the orthopedic-spine surgeon on-call who is agreeable to admission with MRI pending in the AM and no recommendation for IV dexamethasone or other acute treatment at this time. She was then admitted to the general medical floor for ongoing care for status is expected to extend beyond 2 midnights. [facility] Medical History Anxiety Depression Chronic pain GERD (gastroesophageal reflux disease) On home oxygen therapy Atrial fibrillation Congestive heart failure (CHF) Hypertension Shingles Psoriatic arthritis COPD (chronic obstructive pulmonary disease) A-fib Home Medications ?Medication ?Instructions ?Recorded ?Last Taken ?Type atenolol 25 mg tablet 25 mg PO DAILY 06/26/21 12/24/24 History famotidine 20 mg tablet 20 mg PO DAILY 06/26/21 12/24/24 History folic acid 1 mg tablet 1 mg PO DAILY supplement 06/26/21 12/24/24 History rivaroxaban 20 mg tablet (Xarelto) 20 mg PO DAILY 06/26/21 12/24/24 History cholecalciferol (vitamin D3) 50 50 mcg PO DAILY 11/17/24 12/24/24 History mcg (2,000 unit) capsule furosemide 20 mg tablet 20 mg PO DAILY 11/17/24 Unknown History albuterol sulfate 90 mcg/actuation 2 puff inhalation Q6H PRN dyspnea 11/18/24 Unknown History aerosol inhaler tiotropium bromide 18 mcg capsule 1 cap inhalation DAILY PRN 11/18/24 12/24/24 History with inhalation device (Spiriva shortness of breath with HandiHaler) lidocaine 5 % topical patch 2 patch topical DAILY #0 ea 11/24/24 Unknown Rx oxycodone-acetaminophen 5 mg-325 1 tab PO TID PRN pain 12/24/24 Unknown History mg tablet risankizumab-rzaa 150 mg/mL 150 mg subcut Q90D 12/24/24 12/18/24 History subcutaneous pen injector (Skyrizi) Allergy/AdvReac Type Severity Reaction Status Date / Time No Known Allergies Allergy Verified 12/24/24 15:23 Surgical History History of partial hysterectomy History of bladder suspension procedure History of appendectomy History of cholecystectomy H/O hernia repair Social History household members: none Smoking Status: Former smoker substance use type: does not use ROS ROS Narrative Review of Systems: Constitutional: Patient denies fever or chills. Eyes: Patient denies changes in vision or discharge from eyes. ENT: Patient denies runny nose, sore throat or ear pain. Resp: Patient denies shortness of breath or cough. CV: Patient denies chest pain, palpitations, heart racing or lower extremity edema. GI: Patient denies abdominal pain, nausea, vomiting, diarrhea or constipation. : Patient denies dysuria, hematuria or urinary frequency. MSK: Patient admits to severe low back pain made worse with movement that is sharp and radiates into her hips as per HPI. Skin: Patient denies rash, abscess, wounds or jaundice. Psych: Patient denies symptoms of uncontrolled depression or anxiety. Neuro: Patient admits to back pain with radiation into her hips that is left her unable to ambulate due to pain but she denies headache or other focal neurologic deficits. Allergy: Patient denies lip swelling, tongue swelling or urticaria. Hematology: Patient admits to easy bleeding and easy bruisability on rivaroxaban. Endocrinology: Patient denies polyuria, polydipsia, polyphagia or heat/cold intolerance. 14 point ROS otherwise negative save for positives noted above in HPI. Vital Signs Vital Signs Vital Signs: 12/24/24 15:20 12/24/24 16:41 12/24/24 16:41 Temperature 99 F Temperature Source Oral Pulse Rate 79 Respiratory Rate 13 Blood Pressure 134/83 H Blood Pressure Mean 100 Pulse Ox 93 83 96 Oxygen Delivery Method Room Air Room Air Nasal Cannula Oxygen Flow Rate (L/min) 2 12/24/24 18:00 12/24/24 19:00 Temperature 98.6 F Temperature Source Pulse Rate 57 L 57 L Respiratory Rate 12 12 Blood Pressure 148/78 H 148/78 H Blood Pressure Mean 101 101 Pulse Ox 98 98 Oxygen Delivery Method Oxygen Flow Rate (L/min) Weight Weight: 142 lb 6.698 oz Body Mass Index (BMI) 27.8 Physical Exam Const alert, oriented x3, no apparent distress and average body habitus Constitutional Narrative: Patient nontoxic in appearance. General Appearance: cooperative HEENT normocephalic, head/scalp atraumatic, hearing grossly normal bilaterally and moist oral mucous membranes Eyes PERRL, EOMs intact bilaterally and conjunctivae normal Neck no lymphadenopathy, supple and no JVD Resp normal respiratory effort, no retractions, no use of accessory muscles and clear to auscultation bilaterally Cardio regular rate and regular rhythm GI normal to inspection, nondistended, normoactive bowel sounds, soft to palpation, non-tender and non-distended Extremity normal to inspection, full ROM and no clubbing, cyanosis or edema Extremity Narrative: Patient able to move her lower extremities and flex and extend knees bilaterally with palpable pulses throughout no signs of neurovascular compromise. Skin Skin Narrative: Patient has evidence of rash, abscess, wounds or jaundice. Neuro oriented x3, CN's II-XII intact bilaterally, moves all extremities and no focal motor deficits Sensorium / Orientation: awake, alert, oriented to person, oriented to place and oriented to time Speech: speech normal Psych affect normal Results Medical Records Data Attestation: I reviewed the patient's medical records Lab / Micro Data Attestation: I reviewed the patient's lab results. Lab results narrative: RUN DATE: 12/25/24 [facility], DEPARTMENT OF LABORATORIES PAGE 1 RUN TIME: [address] , [place], [address] PATIENT: LESLI ROSALES LOC: MS3 U #: [id number] : 1940 AGE/SX: 84/F FACILITY: [facility] ROOM: [facility] RE12/24/[address]: Yandel Johnson STATUS:ADM IN ED: 1 DIS: ~ SPEC #: [id number] PAMELA: 12/24/24 STATUS: COMP REQ #: [id number] RECD: 12/24/24 [facility] DR: Dr. Oskar Camargo MD ENTERED: 12/24/[address] [facility] [address]: SILVIA GUTHRIE ~ COMMENTS: COLOR OF URINE MAY AFFECT DIPSTICK RESULTS. QUERIES: How was Urine Obtained? CLEAN CATCH Test Result Flag Reference Range COMPLETE UA COLOR Man[place]ula Yellow Urine Clarity Clear Clear GLUCOSE, UR Normal Normal mg/dl BILIRUBIN URINE 1 H Negative mg/dL COLOR OF URINE MAY AFFECT DIPSTICK RESULTS. KETONE UR 5 H Negative mg/dl SP.GR. DIPSTX 1.025 1.002-1.030 pH UR 5.0 5.0 - 8.0 PROT DIPSTX 30 H Negative mg/dl UROBILI 1 H Normal mg/dl NITRITE Negative Negative OCCULT BLOOD-UR 10 H Negative /ul LEUK ESTERASE 25 H Negative /ul WBC 5-10 SEEN 0-5 /hpf RBC 0-5 SEEN 0-5 /hpf EPI,SQUAMOUS 5-10 SEEN 5-10 /hpf BACTERIA 3+ None Seen /hpf MUCUS 0 SEEN <or=2+ /hpf CA OX CRYSTAL 2+ <or=2+ /hpf AMORPHOUS 3+ 12/24/24 16:20 12/24/24 16:20 Labs: Laboratory Results - last 24 hr 12/24/24 16:20: WBC 11.8 H, RBC 4.36, Hgb 14.0, Hct 43.2, MCV 99.1 H, MCH 32.1 H, MCHC 32.4, RDW Std Deviation 53.0 H, RDW Coeff of Mildred 14.4, Plt Count 212, MPV 10.4, Immature Gran % (Auto) 0.500, Neut % (Auto) 69.6, Lymph % (Auto) 20.6, [place] % (Auto) 7.6, Eos % (Auto) 1.2, Baso % (Auto) 0.5, Absolute Neuts (auto) 8.2 H, Absolute Lymphs (auto) 2.43, Nucleated RBC % 0, Sodium 141, Potassium 3.8, Chloride 106, Carbon Dioxide 27.7, Anion Gap 7, BUN 23 H, Creatinine 0.65 L, Estim Creat Clear Calc 44.70 L, Est GFR (MDRD) Non-Af 87, BUN/Creatinine Ratio 35.9 H, Glucose 106 H, Calcium 9.2, Total Bilirubin 0.71, AST 32, ALT 20, Alkaline Phosphatase 157 H, Total Protein 5.9, Albumin 3.1 L, Globulin 2.9, Albumin/Globulin Ratio 1.1 Imaging Radiology Impression Lumbar Spine CT 12/24/24 15:53 IMPRESSION: 1. Compression abnormalities of the L2 and L3 vertebral bodies may be acute. Marked osteoporosis is seen and there are suspected osteolytic areas throughout the lower thoracic and lumbar spine raising concern for metastatic disease. Consider MRI for further evaluation. 2. Degenerative disc disease. 3. Diffuse annular bulging at L3-4 and L4-5. 4. Other nonacute findings detailed above. Reading Location: [facility] Chest X-Ray 12/24/24 16:25 IMPRESSION: 1. Cardiomegaly without overt pulmonary edema 2. Additional description as above. Reading Location: [id number] Assessment & Plan Assessment/Plan (1) Acute cystitis with hematuria: (2) Leukocytosis: QUALIFIERS: Leukocytosis type: unspecified Qualified Code(s): D72.829 - Elevated white blood cell count, unspecified (3) Closed compression fracture of lumbosacral spine: QUALIFIERS: Encounter type: initial encounter Qualified Code(s): S32.000A - Wedge compression fracture of unspecified lumbar vertebra, initial encounter for closed fracture (4) Back pain: QUALIFIERS: Back pain laterality: bilateral Back pain location: low back pain Chronicity: acute Sciatica presence: unspecified whether sciatica present Qualified Code(s): M54.50 - Low back pain, unspecified (5) Inability to perform activities of daily living: (6) Unable to care for self: (7) Generalized weakness: (8) Ambulatory dysfunction: (9) Paroxysmal atrial fibrillation: (10) Chronic anticoagulation: (11) Overweight (BMI 25.0-29.9): PLAN: Plan 1. UA positive for Acute Cystitis; with microscopic hematuria with Leukocytosis of 11.8K present on admission - Admit to general medical floor. Start empiric IV ceftriaxone and await culture and sensitivity data. 2. Severe Back Pain with lumbar CT without contrast that revealed compression abnormalities of the L2 and L3 vertebral bodies which may be acute with marked osteoporosis and suspected osteolytic lesions throughout the lower thoracic and lumbar spine raising concern for metastatic disease with MRI recommended for further evaluation in addition to degenerative disc disease, diffuse annular bulging at L3-L4 and L4-L5 complicating #1 - Proceed with lumbar spine MRI in a.m. as recommended by radiologist and orthopedic-spine surgeon with the patient ordered alprazolam 1 mg to be given 1 hour prior to MRI due to claustrophobia. Give acetaminophen as needed for [id number] (level 1-5/10) pain or fever. Give morphine IV as needed for severe (level 6-10/10) pain. Finally, we will formally consult ortho-spine surgeon to see patient on rounds in a.m. for further recommendations without appreciated advance. 3. Patient Unable to Care for Self and Unable to perform ADLs with Generalized Weakness and Ambulatory Dysfunction due to #1 & #2 in the setting of previously known OA; with chronic bilateral hip and back pain on lidocaine patch and as needed oxycodone 3 times daily - PT/OT and Case Management consult and treat on rounds in a.m. will likely be permanent ECF placement given patient's severe degree of debility with help appreciated in advance. 4. Recent admission here from November 17, 2024 to November 24, 2024 for treatment of septic shock secondary to pneumonia complicated by acute hypoxia, acute metabolic encephalopathy and AE CHF with elevated NT pro-BNP II of ~22K and elevated troponin of 482 pg/mL attributed to acute cardiac strain from septic shock compounded by NAT and acute transaminitis due to shock liver resulting in severe physical deconditioning with patient discharged to alf facility in [place] for subacute rehabilitation compounding #1 - #3 - Noted. 5. Paroxysmal atrial fibrillation; on rivaroxaban adding to the medical complexity of #1 - #4 - Maintain current treatment with ortho-spine surgeon doubting metastatic lesions suspected on CT. 6. Overweight; with a BMI of 27.8 this admission adding to the burden of disease outlined from #1 - #5 - Weight loss will be recommended. Check TSH. 7. Essential hypertension; on a atenolol and furosemide - Resume current treatment plus give prn IV hydralazine prn for systolic blood pressure > 160 mmHg. 8. History of tobacco abuse; with subsequent COPD on tiotropium bromide daily as needed and every 6 as needed albuterol - Stable with no evidence of acute flare at this time. Continue present management. 9. History of depression with anxiety; currently not on treatment - Noted. 10. GERD; on famotidine - Maintain famotidine as previous. 11. History of psoriatic arthritis; on risankizumab - Stable. Restart risankizumab as outpatient. 12. History of shingles - Noted with no evidence of acute flare at this time. 13. History of proximal fracture of the Right humerus - Noted. 14. DVT prophylaxis - Patient already on rivaroxaban for #4 which will be continued. Total time: Approximately (but not less than) 75 minutes. Charges/Coding Visit Charges Inpatient E&M: 79282 Init Hosp L3
--- NOTE | 2024-12-24 20:03 | MRI_ITS ---
PROCEDURE: SPINE LUMBAR (ROUTINE), 12/25/2024 REASON FOR EXAM: SUSPECTED L2-L3 COMPRESSION FRACTURE ON CT. TECHNIQUE: Multisequence multiplanar MR of the lumbar spine was performed without IV contrast. COMPARISON: 12/24/2024 FINDINGS: For the purposes of this report, the last well-formed disc space will be assigned L5-S1. Redemonstrated acute L2 burst fracture with roughly 40% loss of central vertebral body height and mild retropulsion resulting in mild focal spinal canal stenosis. Associated fluid signal/edema within the vertebral body. There is diffuse loss of normal T1 signal throughout the L2 vertebral body, sparing the posterior elements. Suspect tiny ventral epidural hematomas up to 5 mm in thickness. Trace chronic appearing central L3 vertebral body height loss. Remaining vertebral body heights are preserved. Focal marrow edema along the superior L5 endplate anteriorly could reflect degenerative type marrow signal changes or perhaps an additional nondisplaced fracture. Heterogeneous background marrow signal with favored degenerative type marrow signal changes at multiple additional levels. Redemonstrated grade 1/2 likely degenerative anterolisthesis of approximately 9 mm at L5-S1. Trace likely degenerative retrolisthesis at T12-L1 and trace anterolisthesis at L4-L5 are also similar. Conus medullaris terminates normally at the L2 inferior endplate level. Unremarkable appearance of the cauda equina. L1-2: Mild focal spinal canal stenosis at L2 related to burst fracture as above. No significant foraminal stenosis.. L2-3: No significant spinal canal or foraminal stenosis.. L3-4: Mild diffuse disc bulging. No significant spinal canal stenosis. Mild bilateral foraminal stenosis. Mild facet arthropathy.. L4-5: Mild diffuse disc bulging. No significant focal spinal canal stenosis. Facet arthropathy. No significant foraminal stenosis.. L5-S1: Virtually complete loss of disc height with disc uncovering related to anterolisthesis as above. No significant spinal canal stenosis. Mild bilateral foraminal stenoses.. Facet arthropathy. Other: L5 laminectomy with operative changes in the posterior paraspinal soft tissues. Minimally enlarged LEFT para-aortic node, 11 mm short axis. MRI/Spine Lumbar (Routine) IMPRESSION: 1. Redemonstrated L2 burst fracture with mild retropulsion resulting in mild fo sandhya spinal canal stenosis. Tiny posterior epidural hematoma suspected. 2. Heterogeneous marrow signal with diffuse marrow replacement within the L2 ve rtebral body, perhaps slightly greater than would be expected to represent edema related to fracture. Although incompletely eval uated in the absence of IV contrast, this suggest possible pathologic fracture with underlying infiltrative process/lesion. Amador elate with medical history and recommend outpatient follow-up MRI lumbar spine with and without IV contrast for complete evaluation. Some delay to allow at least partial resolution of presumed posttraumatic edema would be helpful in this regard. Fe w other areas of marrow signal abnormality are identified, favored degenerative and/or related to nondisplaced fracture, most notably at the L5 superior endplate. 3. Minimally enlarged LEFT periaortic node, nonspecific and potentially reactiv e in the absence of known malignancy. Correlate with medical history and recommend attention on above follow-up. 4. Multilevel spondylosis without high-grade spinal canal or foraminal stenosis identified. 5. Additional description as above. Reading Location: [facility]
--- NOTE | 2024-12-24 20:30 | ED.RN ---
This RN spoke with Dr Aparicio for clarification as to if patient needs rectal tube placement, he was updated that patient had a soap suds edema with results of stool and air. Per Dr Aparicio patient does not require a rectal tube at this time.
--- NOTE | 2024-12-24 20:30 | CASEMGMT ---
Care Management Face to Face with patient for initial transition planning/care coordination assessment in the ED. This job specification writer introduced self and role at [facility]. Patient alert and oriented. Patient willing to participate in assessment and is able to answer all questions appropriately. Care providers, pharmacy, and demographics verified. Admitting Diagnosis: Closed compression fracture of lumbosacral spine, back pain Other diagnosis history: Shingles, Psoriatic Arthritis, COPD and A-fib, septic shock, pneumonia, NAT PCP: Nisa Michel Specialists: Dr. Hall (pain management) Preferred Pharmacy: [facility] Insurance: [facility]; Medicare Dual Complete Prescription Benefit: Yes Living Will/HPOA: made granddaughter Anna Richards HCPOA last admission; expressed maybe wanting to complete living will this admission. LNOK: Patient?s , Seth, and 2 sons ([facility]; Mando lives in [place]) Living Arrangements: Patient lives in a double-wide mobile home with her . Patient stated there are 5 steps to get in/out of her home that are very difficult for patient to get up and down. Patient did say that she has a handrail she can hold onto when going up/down the stairs. Transportation: Patient drives and stated if she?s not feeling well, her son Hardik provides transportation when needed. DME: Oxygen (patient unable to remember the name of the supplies; stated it?s [employer]-based), 2L, PRN according to patient. Grab bar by shower, standard cane, standard walker, shower chair, raised toilet seat, rollator. HHC: Yes; patient stated she currently has through [facility], believes it to be PT. Patient's reportedly has HHC 2x per week, but agency is unknown. SNF/Rehab: [facility] (November 2024) Community Resources: Denied Behavioral Health History: Depression. Per previous assessment, patient reported she was on medication for depression at one time however stopped taking it because it caused headaches. Patient stated she would like to try a different kind. Patient goals: Patient wishes to discharge home with HHC. Patient denies any further needs or concerns at this time. Disposition Plan: admission to acute; RN CM/SW to follow for discharge planning needs that may arise. Janny Lyles, ESTIMATOR PAP[employer]BOARD BOXES, [employer]
[2024-12-24 21:19] LABS: Magnesium 2.1 mg/dL (1.5-2.2)
[2024-12-24 21:52] LABS: Vitamin B12 695 pg/mL (180-914)
[2024-12-24] MEDS: 0.9% Normal Saline (1000mL) 1,000 ML 70 ML IV (22:10)
[2024-12-24] MEDS: 0.9% Saline Lock 10 ML Syringe IV (22:11)
[2024-12-24] MEDS: Nystatin Powder 15gm Bottle 1 APPLIC TOPICAL (22:11)
[2024-12-24] MEDS: Menthol/Lanolin/Calamine/Znox 113 GM Tube 1 APPLIC TOPICAL (22:11)
[2024-12-24 22:37] LABS: Mucous, Urine 0 SEEN /hpf (<or=2+)
[2024-12-24 22:44] LABS: Color, Urine Amber (Yellow); Glucose, Dipstick Normal (Normal); Ketone-Dipstick 5 mg/dl (Negative); Leukocyte Esterase-Dipstick 25 /ul (Negative); Nitrite-Dipstick Negative (Negative); Occult Blood-Urine 10 /ul (Negative); Protein-Dipstick 30 mg/dl (Negative); Specific Gravity, Urine 1.025 (1.002-1.030); Urine Clarity Clear (Clear); Urine Urobilinogen 1 mg/dl (Normal)
[2024-12-24 22:54] LABS: Urine Bilirubin Dipstick 1 mg/dL (Negative)
[2024-12-24 22:58] LABS: Bacteria 3+ /hpf (None Seen); Calcium Oxalate Crystals Ur 2+ /hpf (<or=2+); Red Blood Cells-Urine 0-5 SEEN /hpf (0-5); Squamous Epithelial Cells - UA 5-10 SEEN /hpf (5-10); White Blood Cells 5-10 SEEN /hpf (0-5)
[2024-12-24 22:59] LABS: Amorphous Sediment 3+
[2024-12-25] VITALS (11 sets, daily range): BP systolic 83–134; BP diastolic 51–77; PULSE 58–91; RESP 14–18; TEMP 36.6–36.8; O2SAT 87–100; BMI 26.9
[2024-12-25] MEDS: Ceftriaxone 1 GM/50 ML BAG IV ×2 (02:36→23:12)
[2024-12-25] MEDS: Morphine 2 MG/ML Syringe IV (02:40)
[2024-12-25 06:01] LABS: Absolute Lymphocyte Count 2.31 X10^3/uL (0.83-4.51); Basophil# 0.07 X10^3/uL; Basophil% 0.7 % (0-1); Eosinophil# 0.25 X10^3/uL; Eosinophils% 2.6 % (0-5); Hematocrit 38.2 % (37-47); Hemoglobin 12.4 g/dL (12.0-15.0); Lymphocyte # 2.31 X10^3/ul (0.83-4.51); Lymphocyte % 24.4 % (19-41); Mean Corp Hgb Conc 32.5 g/dL (32-36); Mean Corpuscular Hgb 32.5 pg (27.0-32.0); Mean Corpuscular Volume 100.3 fL (81-99); Mean Platelet Vol. 10.3 fl (6.2-12.0); Monocyte# 0.87 X10^3/uL; Monocyte% 9.2 % (0-10); NRBC Flagged by Analyzer 0 % (0-5); Neutrophil # 5.95 X10^3/uL (2.7-7.7); Neutrophil % 62.8 % (47-70); Platelet Count 175 K/mm3 (150-450); RBC Distribution Width CV 14.3 % (11.6-14.6); RBC Distribution Width SD 52.2 fl (35.1-43.9); Red Blood Count 3.81 M/mm3 (4.2-5.4); White Blood Count 9.5 K/mm3 (4.4-11.0)
[2024-12-25 06:28] LABS: ALB/GLOB Ratio 1.1 RATIO (0.9-2.4); AST(SGOT) 28 U/L (<=31); Alanine Aminotransfer ALT/SGPT 16 U/L (<=34); Albumin, Serum 2.6 g/dL (3.4-4.8); Alkaline Phosphatase 127 U/L (35-104); Anion Gap 5 (5-15); BUN 21 mg/dL (4-19); Calcium,Total 8.4 mg/dL (7.6-11.0); Carbon Dioxide 26.1 mmol/L (21.0-32.0); Chloride 109 mmol/L (98-108); EST Glomerular Filtration Rate 93 (>60); Estimated Creatinine Clearance 43.99 ml/min (50-250); Globulin 2.3 g/dL (2.2-4.2); Glucose 71 mg/dL (70-99); Phosphorus 3.2 mg/dL (2.7-4.5); Potassium 4.1 mmol/L (3.3-5.1); Protein, Total 4.9 g/dL (5.9-8.4); Sodium Level 141 mmol/L (133-145); Total Bilirubin 0.61 mg/dL (0.00-1.30)
--- NOTE | 2024-12-25 07:39 | PN.HOSP_ITS ---
Reason for Visit Reason for Visit: Intractable back pain Subjective Subjective Patient reports back pain centrally and that radiates down her left leg. She denies any significant tingling or numbness and denies any saddle anesthesia or issues with her bowel or bladder function. States that mobility is a big problem for her right now. Objective Data Objective Data Vital Signs: Vital Signs Temp Pulse Resp BP Pulse Ox O2 Del Method O2 Flow Rate 98 F 89 16 118/76 98 Nasal Cannula 2 12/25/24 02:11 12/25/24 02:11 12/25/24 02:11 12/25/24 02:11 12/25/24 02:11 12/25/24 02:11 12/25/24 02:11 Oxygen Flow Rate (L/min) 2 Oxygen Delivery Method Nasal Cannula Weight: 62.5 kg Body Mass Index (BMI) 26.9 Intake & Output: Intake and Output for Last 24 Hours 12/23/24 12/24/24 12/25/24 23:59 23:59 23:59 Intake Total 615 / 615 50 / 50 Output Total 100 / 100 Balance 615 / 615 -50 / -50 Lab / Micro Data 12/25/24 05:31 12/25/24 05:31 Labs: Laboratory Results - last 24 hr 12/24/24 16:20: WBC 11.8 H, RBC 4.36, Hgb 14.0, Hct 43.2, MCV 99.1 H, MCH 32.1 H , MCHC 32.4, RDW Std Deviation 53.0 H, RDW Coeff of Mildred 14.4, Plt Count 212, MPV 10.4, Immature Gran % (Auto) 0.500, Neut % (Auto) 69.6, Lymph % (Auto) 20.6, Ashe % (Auto) 7.6, Eos % (Auto) 1.2, Baso % (Auto) 0.5, Absolute Neuts (auto) 8.2 H, Absolute Lymphs (auto) 2.43, Nucleated RBC % 0, Sodium 141, Potassium 3.8, Chloride 106, Carbon Dioxide 27.7, Anion Gap 7, BUN 23 H, Creatinine 0.65 L , Estim Creat Clear Calc 44.70 L, Est GFR (MDRD) Non-Af 87, BUN/Creatinine Ratio 35.9 H, Glucose 106 H, Calcium 9.2, Magnesium 2.1, Total Bilirubin 0.71, AST 32, ALT 20, Alkaline Phosphatase 157 H, Total Protein 5.9, Albumin 3.1 L, Globulin 2.9, Albumin/Globulin Ratio 1.1, Vitamin B12 695, TSH 1.160 12/24/24 22:25: Urine Color Manjula, Urine Clarity Clear, Urine pH 5.0, Ur Specific Eden 1.025, Urine Protein 30 H, Urine Glucose (UA) Normal, Urine Ketones 5 H, Urine Occult Blood 10 H, Urine Nitrite Negative, Urine Bilirubin 1 H, Urine Urobilinogen 1 H, Ur Leukocyte Esterase 25 H, Urine RBC 0-5 SEEN, Urine WBC 5-10 SEEN, Ur Squamous Epith Cells 5-10 SEEN, Calcium Oxalate Crystal 2+, Amorphous Sediment 3+, Urine Bacteria 3+, Urine Mucus 0 SEEN 12/25/24 05:31: WBC 9.5, RBC 3.81 L, Hgb 12.4, Hct 38.2, MCV 100.3 H, MCH 32.5 H , MCHC 32.5, RDW Std Deviation 52.2 H, RDW Coeff of Mildred 14.3, Plt Count 175, MPV 10.3, Immature Gran % (Auto) 0.300, Neut % (Auto) 62.8, Lymph % (Auto) 24.4, Ashe % (Auto) 9.2, Eos % (Auto) 2.6, Baso % (Auto) 0.7, Absolute Neuts (auto) 6.0, Absolute Lymphs (auto) 2.31, Nucleated RBC % 0, Sodium 141, Potassium 4.1, Chloride 109 H, Carbon Dioxide 26.1, Anion Gap 5, BUN 21 H, Creatinine 0.50 L, E stim Creat Clear Calc 43.99 L, Est GFR (MDRD) Non-Af 93, BUN/Creatinine Ratio 41.0 H, Glucose 71, Calcium 8.4, Phosphorus 3.2, Total Bilirubin 0.61, AST 28, ALT 16, Alkaline Phosphatase 127 H, Total Protein 4.9 L, Albumin 2.6 L, Globulin 2.3, Albumin/Globulin Ratio 1.1 Radiography Diagnostic Testing: Radiology Impression Lumbar Spine CT 12/24/24 15:53 IMPRESSION: 1. Compression abnormalities of the L2 and L3 vertebral bodies may be acute. Marked osteoporosis is seen and there are suspected osteolytic areas throughout the lower thoracic and lumbar spine raising concern for metastatic disease. Consider MRI for further evaluation. 2. Degenerative disc disease. 3. Diffuse annular bulging at L3-4 and L4-5. 4. Other nonacute findings detailed above. Reading Location: [facility] Chest X-Ray 12/24/24 16:25 IMPRESSION: 1. Cardiomegaly without overt pulmonary edema 2. Additional description as above. Reading Location: [facility] Physical Exam Const alert, oriented x3, no apparent distress, average body habitus and well nourished Constitutional Narrative: Elderly, white female, lying in right side-lying, appears uncomfortable with movement but does not appear toxic currently in no distress HEENT head/scalp atraumatic and moist oral mucous membranes Head and Scalp: normocephalic Resp normal respiratory effort, no retractions, no use of accessory muscles and clear to auscultation bilaterally Auscultation: Negative for rales, rhonchi or wheezes Cardio regular rate, regular rhythm, S1 normal heart sound, S2 normal heart sound, no murmurs, no rub, no gallops and no clicks GI normal to inspection, nondistended, normoactive bowel sounds, soft to palpation and non-tender Extremity no clubbing, cyanosis or edema Extremity Narrative: Pedal pulses are 2+ Neuro Neuro Narrative: No focal deficits, patient with some difficulty moving due to pain, sensory appears to be intact at this time, significant difficulty with mobility Speech: speech normal Psych affect normal Psych Narrative: Eye contact is good and patient interacts appropriately Assessment & Plan Assessment/Plan (1) Intractable back pain: (2) Abnormal finding on urinalysis: (3) Compression fracture of L2: (4) Compression fracture of L3 vertebra: PLAN: Plan Intractable low back pain secondary to compression fracture at L2 and L3 due to osteoporosis - CT is suspicious for osteolytic lesions in the thoracic and lumbar spine - Interesting alk phos is not really that elevated which would be more consistent with metastatic disease - MRI was performed and shows burst fracture with mild retropulsion resulting in mild focal spinal canal stenosis with tiny posterior epidural hematoma suspected, heterogeneous marrow signal with diffuse marrow replacement in the L2 vertebral body, large left periaortic lymph node and multilevel spondylosis without high-grade spinal canal or foraminal stenosis - Patient on Xarelto chronically for A-fib will hold - Lidocaine patch - Scheduled Tylenol - Muscle relaxants as ordered as needed - As needed oral oxycodone - Morphine IV for breakthrough pain - Consult pain management - Check vitamin D level and start calcium supplementation - Will consult orthopedic surgery - PT/OT consultation but hold off until after evaluated by orthopedic surgery Abnormal UA - Urine culture was sent - Continue ceftriaxone - Await culture results Generalized weakness and debility secondary to the above - Will likely need placement at discharge -case finishing machine adjuster consulted PAF - Rivaroxaban on hold due to #1 - Continue home atenolol - Currently sinus rhythm GERD - Continue home famotidine Essential hypertension - Continue home Lasix - Continue atenolol - As needed hydralazine for systolic pressure greater than 160 - History of psoriatic arthritis - Restart biologic at discharge Depression - Patient is not on any medications - monitor clinically COPD - Continue home inhalers Tobacco abuse - Remote and patient has quit DVT prophylaxis - Home Xarelto on hold - Will add enoxaparin tomorrow CODE STATUS Reviewed with patient she would like to be full code Charges/Coding Visit Charges Inpatient E&M: 88075 Subs Hosp L2
[2024-12-25] MEDS: Folic Acid 1 MG Tablet PO ×2 (08:42→08:44)
[2024-12-25] MEDS: Lidocaine 5% Patch 2 PATCH TOPICAL (08:43)
[2024-12-25] MEDS: Menthol/Lanolin/Calamine/Znox 113 GM Tube 1 APPLIC TOPICAL ×2 (08:43→23:08)
[2024-12-25] MEDS: Nystatin Powder 15gm Bottle 1 APPLIC TOPICAL ×2 (08:44→23:08)
[2024-12-25] MEDS: Famotidine 20 MG Tablet PO (08:45)
[2024-12-25] MEDS: Atenolol 25 MG Tablet PO (08:45)
[2024-12-25] MEDS: Cholecalciferol (VIT D3) 25 MCG TABLET (1,000 UNITS) 50 MCG PO (08:46)
[2024-12-25 09:12] LABS: Vitamin D,25 Hydroxy 33.9 ng/mL (30-100)
[2024-12-25] MEDS: oxyCODONE 5 MG Tablet PO ×2 (11:04→23:13)
[2024-12-25] MEDS: tiZANidine HCl 2 MG Tablet PO (11:04)
[2024-12-25] MEDS: LORazepam 1 MG Tablet PO (11:05)
--- NOTE | 2024-12-25 11:20 | CASEMGMT ---
Addendum entered by Stephanie Reyes 12/26/24 11:38: Correction: Should have read post therapy evals not post surgery evals. Original Note: LISA BRANDON Readmission Note Previous Admission: 11/17/24-11/24/24 Diagnosis: septic shock DC Disposition: [facility] Current Admission: 12/24/24 Current Diagnosis: severe back pain radiating into hips with lumbar Pt admitted on index admission with septic shock and dc'd to [facility]. LISA BRANDON into pt room, pt lying in bed in no distress. Pt A&Ox3 at this time and answers questions appropriately. She states she dc'd from [facility] to go home on 12/13/24 as she did not want to stay and get my car and house taken away. She states she was to go home and follow up with her PCP so HHC could get started. She states her PCP appt was on Monday but she was in so much pain she couldn't go. She states she called her pain doctor and was prescribed more pain meds but despite taking them she couldn't make the appt. Her appt was then rescheduled to this coming . Pt states she has had these pain problems since August when she tried to lift her up but most recently the pain has been getting worse. Pt speaks of Antonella, who she thinks is a nurse but does not know what agency she works for, has seen her twice since being home. Pt states her is at home receiving HHC as well. Pt states she does not feel that she can return home in this condition. Pt states she would not want to go back to [facility], she would like to stay closer to home. Pt states she would like to go to [address] if needed. Therapy then came in the room to work with pt. Pt aware LISA BRANDON/LUMA will further discuss her dc plan post surgery evals and MRI. DC Plan: TBD pending therapy, MRI and course of hospitalization.
--- NOTE | 2024-12-25 11:58 | NURSING ---
pt to MRI w/ nurse SREEKANTH
--- NOTE | 2024-12-25 12:43 | NURSING ---
This RN took pt vital signs. This RN reported to lead RN Kirti that pt's bp was 83/60 and pt was desating on room air so this RN placed 2L NC.
[2024-12-25] MEDS: Calcium Carbonate 500 MG Tablet PO (12:45)
[2024-12-25] MEDS: Polyethylene Glycol 3350 17 GM PACKET PO (12:45)
[2024-12-25] MEDS: Acetaminophen 500 MG Tablet 1000 MG PO ×2 (12:46→23:09)
[2024-12-25] MEDS: 0.9% Saline Lock 10 ML Syringe IV (23:09)
[2024-12-26] VITALS (9 sets, daily range): BP systolic 118–153; BP diastolic 60–92; PULSE 56–80; RESP 16; TEMP 36.5–36.9; O2SAT 92–100; BMI 28.1
[2024-12-26] MEDS: tiZANidine HCl 2 MG Tablet PO ×2 (04:13→21:44)
[2024-12-26] MEDS: Acetaminophen 500 MG Tablet 1000 MG PO ×3 (05:56→21:36)
[2024-12-26 07:01] LABS: Hematocrit 36.3 % (37-47); Hemoglobin 11.8 g/dL (12.0-15.0); Mean Corp Hgb Conc 32.5 g/dL (32-36); Mean Corpuscular Hgb 32.8 pg (27.0-32.0); Mean Corpuscular Volume 100.8 fL (81-99); Mean Platelet Vol. 10.7 fl (6.2-12.0); Platelet Count 162 K/mm3 (150-450); RBC Distribution Width CV 14.2 % (11.6-14.6); RBC Distribution Width SD 52.7 fl (35.1-43.9); White Blood Count 8.2 K/mm3 (4.4-11.0)
[2024-12-26 07:40] LABS: Anion Gap 5 (5-15); BUN 23 mg/dL (4-19); BUN/Creat Ratio 51.7 RATIO (10-20); Calcium,Total 8.5 mg/dL (7.6-11.0); Carbon Dioxide 27.8 mmol/L (21.0-32.0); Chloride 109 mmol/L (98-108); Creatinine, Serum 0.44 mg/dL (0.70-1.20); EST Glomerular Filtration Rate 96 (>60); Estimated Creatinine Clearance 44.83 ml/min (50-250); Glucose 78 mg/dL (70-99); Potassium 3.7 mmol/L (3.3-5.1); Sodium Level 142 mmol/L (133-145)
[2024-12-26] MEDS: Nystatin Powder 15gm Bottle 1 APPLIC TOPICAL ×2 (10:09→21:36)
[2024-12-26] MEDS: Polyethylene Glycol 3350 17 GM PACKET PO (10:10)
[2024-12-26] MEDS: Lidocaine 5% Patch 2 PATCH TOPICAL (10:10)
[2024-12-26] MEDS: Menthol/Lanolin/Calamine/Znox 113 GM Tube 1 APPLIC TOPICAL ×2 (10:10→21:35)
[2024-12-26] MEDS: Calcium Carbonate 500 MG Tablet PO ×3 (10:12→16:27)
[2024-12-26] MEDS: Famotidine 20 MG Tablet PO (10:13)
[2024-12-26] MEDS: Atenolol 25 MG Tablet PO (10:13)
[2024-12-26] MEDS: Cholecalciferol (VIT D3) 25 MCG TABLET (1,000 UNITS) 50 MCG PO (10:13)
--- NOTE | 2024-12-26 10:23 | CASEMGMT ---
Discharge Planning A list of?SNF providers including quality and resource use data and consistent with the patient's preferred geographic region, medical needs, and insurance network was created in [employer] Guide.? This list was provided to the SW. Kristi Chatterjee Discharge Planning Asst.
--- NOTE | 2024-12-26 11:17 | CASEMGMT ---
Social Work SW met with pt to discuss home situation. Pt was at [facility] and was discharged home on 12/13 when she was cut by insurance. Pt's spouse was in the hospital and also discharged home on 12/13. Pt states her son Hardik was suppose to move in to help, but Hardik and pt's spouse got in a fight and Hardik left the house and has not been helping. Pt states they are not eating and she is urinating on towels in her bed as she cannot care for self and no one is present to assist them. SW spoke with pt regarding safety at home and need for termite exterminator placement for pt and her spouse. Pt is concerned with losing the house and car if they need to apply for Medicaid. SW attempted to speak with pt about home safety concerns and explain Medicaid. Pt is waiting for consulting physician and hopeful that her back can be fixed and she can walk and go home. However, if pt is unable to walk after she is seen by consulting physicians, she is agreeable to go to SNF. Pt acknowledges she cannot continue to live like she was. A list of SNF providers including quality and resource use data and consistent with the patient?s preferred geographic region, medical needs, and insurance network were provided from the [employer] Guide. Pt preferred provider is [facility]. LUMA will follow up for dc planning after pt is seen by consulting physicians. ANAY Reid
--- NOTE | 2024-12-26 11:51 | CM.ED ---
Social Work Danae from [facility] called SW today to get additional information from call on 12/24/2024. Danae stated since patient is still at the hospital and may be admitting to a SNF, that she would wait to open the case. If patient discharges home, Danae requested a call to open case. Acute floor SW notified of same. Priti Lou, SOIL TECHNOLOGIST, EDUCATION AND OUTREACH COORDINATOR
--- NOTE | 2024-12-26 12:03 | PN.HOSP_ITS ---
Reason for Visit Reason for Visit: Intractable back pain Subjective Subjective Patient states her pain is fairly well-controlled as long as she is in bed but if she tries to get up her pain significantly increases. Objective Data Objective Data Vital Signs: Vital Signs Temp Pulse Resp BP Pulse Ox O2 Del Method O2 Flow Rate 97.8 F 80 16 126/60 H 100 Nasal Cannula 2 12/26/24 09:59 12/26/24 09:59 12/26/24 10:03 12/26/24 09:59 12/26/24 09:59 12/26/24 10:03 12/26/24 10:03 Oxygen Flow Rate (L/min) 2 Oxygen Delivery Method Nasal Cannula Weight: 65 kg Body Mass Index (BMI) 28.1 Intake & Output: Intake and Output for Last 24 Hours 12/24/24 12/25/24 12/26/24 23:59 23:59 23:59 Intake Total 615 / 615 1300 / 1500 300 / 300 Output Total 100 / 100 Balance 615 / 615 1200 / 1400 300 / 300 Lab / Micro Data 12/26/24 05:49 12/26/24 05:49 Labs: Laboratory Results - last 24 hr 12/26/24 05:49: WBC 8.2, RBC 3.60 L, Hgb 11.8 L, Hct 36.3 L, MCV 100.8 H, MCH 32.8 H, MCHC 32.5, RDW Std Deviation 52.7 H, RDW Coeff of Mildred 14.2, Plt Count 162, MPV 10.7, Sodium 142, Potassium 3.7, Chloride 109 H, Carbon Dioxide 27.8, Anion Gap 5, BUN 23 H, Creatinine 0.44 L, Estim Creat Clear Calc 44.83 L, Est GFR (MDRD) Non-Af 96, BUN/Creatinine Ratio 51.7 H, Glucose 78, Calcium 8.5, Phosphorus 3.0 Micro: Microbiology 12/24/24 22:25 Urine, Clean Catch Urine Culture - Preliminary GNR lactose informatica mdm architect Gram negative estela Radiography Diagnostic Testing: Radiology Impression Lumbar Spine MRI 12/24/24 20:03 IMPRESSION: 1. Redemonstrated L2 burst fracture with mild retropulsion resulting in mild focal spinal canal stenosis. Tiny posterior epidural hematoma suspected. 2. Heterogeneous marrow signal with diffuse marrow replacement within the L2 vertebral body, perhaps slightly greater than would be expected to represent edema related to fracture. Although incompletely evaluated in the absence of IV contrast, this suggest possible pathologic fracture with underlying infiltrative process/lesion. Correlate with medical history and recommend outpatient follow-up MRI lumbar spine with and without IV contrast for complete evaluation. Some delay to allow at least partial resolution of presumed posttraumatic edema would be helpful in this regard. Few other areas of marrow signal abnormality are identified, favored degenerative and/or related to nondisplaced fracture, most notably at the L5 superior endplate. 3. Minimally enlarged LEFT periaortic node, nonspecific and potentially reactive in the absence of known malignancy. Correlate with medical history and recommend attention on above follow-up. 4. Multilevel spondylosis without high-grade spinal canal or foraminal stenosis identified. 5. Additional description as above. Reading Location: [facility] Physical Exam Const alert, oriented x3, no apparent distress, average body habitus and well nourished Constitutional Narrative: Elderly, white female, sitting up in bed eating breakfast slightly reclined, appears comfortable currently, nontoxic General Appearance: cooperative HEENT normocephalic, head/scalp atraumatic and moist oral mucous membranes Resp normal respiratory effort, no retractions, no use of accessory muscles and clear to auscultation bilaterally Auscultation: Negative for rales, rhonchi or wheezes Cardio regular rate, regular rhythm, S1 normal heart sound, S2 normal heart sound, no murmurs, no rub, no gallops and no clicks GI normal to inspection, nondistended, normoactive bowel sounds, soft to palpation and non-tender Extremity no clubbing, cyanosis or edema Extremity Narrative: Pedal pulses are 2+ Neuro oriented x3, moves all extremities and no focal motor deficits Neuro Narrative: Increased pain with movement which limits strength but no significant focal deficits noted Speech: speech normal Psych affect normal Psych Narrative: Eye contact is good and patient interacts appropriately Assessment & Plan Assessment/Plan (1) Intractable back pain: (2) Abnormal finding on urinalysis: (3) Compression fracture of L2: (4) Compression fracture of L3 vertebra: PLAN: Plan Intractable low back pain secondary to compression fracture at L2 and L3 due to osteoporosis - CT is suspicious for osteolytic lesions in the thoracic and lumbar spine - Interestingly alk phos is not really that elevated which would be more consistent with metastatic disease - MRI was performed and shows burst fracture with mild retropulsion resulting in mild focal spinal canal stenosis with tiny posterior epidural hematoma suspected, heterogeneous marrow signal with diffuse marrow replacement in the L2 vertebral body, large left periaortic lymph node and multilevel spondylosis without high-grade spinal canal or foraminal stenosis - Patient on Xarelto chronically for A-fib will hold in case procedures are required from orthopedic surgery and/or pain management - Continue lidocaine patch - Continue scheduled Tylenol - Continue muscle relaxants as ordered as needed - Continue as needed oral oxycodone - Continue morphine IV for breakthrough pain - Consult pain management is still pending - Continue calcium supplementation - Continue home vitamin D supplementation as level is greater than 30 - Orthopedic surgery consult is still pending - PT/OT consultation but hold off until after evaluated by orthopedic surgery UTI - Urine culture was sent for dysuria - Cultures showing 2 gram-negative rods - Possible Proteus for 1 next-sensitivities are still following so we will continue ceftriaxone for now - I do suspect any intervention will require eradication or at least 48 hours of treatment of her urine if orthopedic surgery or pain management would like to proceed with anything - Await culture results Generalized weakness and debility secondary to the above - Will likely need placement at discharge - director of casework services consulted PAF - Rivaroxaban on hold due to the above - Continue home atenolol - Currently sinus rhythm GERD - Continue home famotidine Essential hypertension - Continue home Lasix - Continue atenolol - As needed hydralazine for systolic pressure greater than 160 - History of psoriatic arthritis - Restart biologic at discharge Depression - Patient is not on any medications - monitor clinically COPD - Continue home inhalers Tobacco abuse - Remote and patient has quit DVT prophylaxis - Home Xarelto on hold - Start enoxaparin 40 daily CODE STATUS -Full code Charges/Coding Visit Charges Inpatient E&M: 58538 Subs Hosp L2
[2024-12-26] MEDS: oxyCODONE 5 MG Tablet PO (14:03)
--- NOTE | 2024-12-26 16:13 | CHAPLAIN ---
Type of Pastoral Visit _x__ Initial Visit ___ Follow-up Visit ___ On-call Visit ___ General Patient Visit ___ Spiritual Assessment ___ Family Conference ___ Bereavement ___ Rapid Response ___ Code Blue ___ Other (describe below) Pastoral Care Referral From _x__ Patient ___ Family ___ Nurse ___ Physician ___ Tavern Keeper ___ Filenet Admin ___ Other (describe below) Sacrament/Intervention _x__ Active listening ___ Anointing ___ Gnosticist ___ Bereavement ___ Communion ___ Cecily exploration ___ _x__ Life review _x__ Prayer ___ Reconciliation ___ Sacrament of Sick _x__ Supportive presence ___ Wedding ___ Other (describe below) Pastoral Comments patient is talkative and goes into details about her pain, weakness, support or lack thereof; pt uses some humor too; pt has a sikhism connection but has not been active lately due to health; pt welcomes time to talk with someone and for prayer support
--- NOTE | 2024-12-26 16:29 | CONS.ORTHO ---
HPI Consult Data Date of Consult: 12/26/24 HPI Narrative HPI Narrative: LESLI ROSALES, is a 84 F who presents with severe low back pain and admission for pain control. I was contacted by the ED on 12/24/2024 and the patient was admitted. Patient underwent MRI on 12/25/2024 and I was consulted after the MRI. I saw the patient today in 306. Patient is lying down in bed. She said that she was able to work with PT and sit up on a chair. She says that she has had severe worsening of low back pain since August when she tried to lift her . She was bedridden for a few weeks after that and then was brought to the hospital for sepsis about a month ago. This was then treated but then patient was not able to get back to mobility and continue to be bedridden. She was then brought to the hospital on 12/24/2024. Patient says that she has had severe low back pain and points towards the lower lumbar region. She denies any new trauma other than the popping sound that she heard when she tried to lift her in August. She has pain that goes down towards bilateral hips and into the thighs. She denies any weakness in the lower extremities. She denies any known previous cancers. She denies any recent fevers. [facility] Medical History Anxiety Depression Chronic pain GERD (gastroesophageal reflux disease) On home oxygen therapy Atrial fibrillation Congestive heart failure (CHF) Hypertension Shingles Psoriatic arthritis COPD (chronic obstructive pulmonary disease) A-fib Home Medications ?Medication ?Instructions ?Recorded ?Last Taken ?Type atenolol 25 mg tablet 25 mg PO DAILY 06/26/21 12/24/24 History famotidine 20 mg tablet 20 mg PO DAILY 06/26/21 12/24/24 History folic acid 1 mg tablet 1 mg PO DAILY supplement 06/26/21 12/24/24 History rivaroxaban 20 mg tablet (Xarelto) 20 mg PO DAILY 06/26/21 12/24/24 History cholecalciferol (vitamin D3) 50 50 mcg PO DAILY 11/17/24 12/24/24 History mcg (2,000 unit) capsule furosemide 20 mg tablet 20 mg PO DAILY 11/17/24 Unknown History albuterol sulfate 90 mcg/actuation 2 puff inhalation Q6H PRN dyspnea 11/18/24 Unknown History aerosol inhaler tiotropium bromide 18 mcg capsule 1 cap inhalation DAILY PRN 11/18/24 12/24/24 History with inhalation device (Spiriva shortness of breath with HandiHaler) lidocaine 5 % topical patch 2 patch topical DAILY #0 ea 11/24/24 Unknown Rx oxycodone-acetaminophen 5 mg-325 1 tab PO TID PRN pain 12/24/24 Unknown History mg tablet risankizumab-rzaa 150 mg/mL 150 mg subcut Q90D 12/24/24 12/18/24 History subcutaneous pen injector (Skyrizi) Allergy/AdvReac Type Severity Reaction Status Date / Time No Known Allergies Allergy Verified 12/24/24 15:23 Surgical History History of partial hysterectomy History of bladder suspension procedure History of appendectomy History of cholecystectomy H/O hernia repair Social History household members: none Smoking Status: Former smoker substance use type: does not use Vital Signs Vital Signs Vital Signs: 12/25/24 20:40 12/25/24 22:00 12/25/24 22:56 Temperature Temperature Source Pulse Rate 79 Pulse Strength Normal (2+) Respiratory Rate Respiratory Effort Respiratory Depth Respiratory Pattern Blood Pressure Blood Pressure Mean Blood Pressure Source Blood Pressure Position Blood Pressure Location Pulse Ox 98 Oxygen Delivery Method Nasal Cannula Oxygen Flow Rate (L/min) 2 12/25/24 23:07 12/25/24 23:21 12/26/24 04:09 Temperature 98.2 F 97.7 F L Temperature Source Oral Oral Pulse Rate 80 65 Pulse Strength Respiratory Rate 16 16 Respiratory Effort Normal Non-Labored Respiratory Depth Normal Respiratory Pattern Normal Blood Pressure 123/69 H 118/60 Blood Pressure Mean 87 79 Blood Pressure Source Monitor Monitor Blood Pressure Position Semi-Fowlers Left Lateral Blood Pressure Location Left Arm Right Arm Pulse Ox 98 99 Oxygen Delivery Method Nasal Cannula Nasal Cannula Nasal Cannula Oxygen Flow Rate (L/min) 2 2 2 12/26/24 05:30 12/26/24 06:54 12/26/24 09:59 Temperature 97.8 F Temperature Source Oral Pulse Rate 56 L 80 Pulse Strength Respiratory Rate 16 Respiratory Effort Respiratory Depth Respiratory Pattern Blood Pressure 126/60 H Blood Pressure Mean 82 Blood Pressure Source Monitor Blood Pressure Position Semi-Fowlers Blood Pressure Location Left Arm Pulse Ox 93 100 Oxygen Delivery Method Nasal Cannula Nasal Cannula Oxygen Flow Rate (L/min) 2 2 12/26/24 10:03 12/26/24 11:13 12/26/24 11:13 Temperature Temperature Source Pulse Rate Pulse Strength Respiratory Rate 16 Respiratory Effort Respiratory Depth Respiratory Pattern Blood Pressure Blood Pressure Mean Blood Pressure Source Blood Pressure Position Blood Pressure Location Pulse Ox 93 92 Oxygen Delivery Method Nasal Cannula Oxygen Flow Rate (L/min) 2 12/26/24 13:55 Temperature 97.9 F Temperature Source Oral Pulse Rate 75 Pulse Strength Respiratory Rate 16 Respiratory Effort Respiratory Depth Respiratory Pattern Blood Pressure 153/92 H Blood Pressure Mean 112 Blood Pressure Source Monitor Blood Pressure Position Semi-Fowlers Blood Pressure Location Left Arm Pulse Ox 94 Oxygen Delivery Method Room Air Oxygen Flow Rate (L/min) Weight Weight: 143 lb 4.807 oz Body Mass Index (BMI) 28.1 Physical Exam Narrative Examination of the back shows midline and paraspinal tenderness throughout the lumbar spine. Difficult to assess for spinous process tenderness. Patient's back is sweaty, but vitals show normal temperature. Neurologic bilateral lower extremity shows 5 x 5 power normal shows normal sensations in all dermatomes. Lab / Micro Data 12/26/24 05:49 12/26/24 05:49 Labs: Laboratory Results - last 24 hr 12/26/24 05:49: WBC 8.2, RBC 3.60 L, Hgb 11.8 L, Hct 36.3 L, MCV 100.8 H, MCH 32.8 H, MCHC 32.5, RDW Std Deviation 52.7 H, RDW Coeff of Mildred 14.2, Plt Count 162, MPV 10.7, Sodium 142, Potassium 3.7, Chloride 109 H, Carbon Dioxide 27.8, Anion Gap 5, BUN 23 H, Creatinine 0.44 L, Estim Creat Clear Calc 44.83 L, Est GFR (MDRD) Non-Af 96, BUN/Creatinine Ratio 51.7 H, Glucose 78, Calcium 8.5, Phosphorus 3.0 Micro: Microbiology 12/24/24 22:25 Urine, Clean Catch Urine Culture - Preliminary GNR lactose bpm solution architect Gram negative estela Assessment & Plan Assessment/Plan (1) Compression fracture of L3 vertebra: QUALIFIERS: Encounter type: sequela Qualified Code(s): S32.030S - Wedge compression fracture of third lumbar vertebra, sequela (2) Burst fracture of lumbar vertebra: QUALIFIERS: Encounter type: initial encounter Fracture type: closed Qualified Code(s): S32.001A - Stable burst fracture of unspecified lumbar vertebra, initial encounter for closed fracture (3) Osteopenia determined by x-ray: PLAN: Plan I reviewed CT of lumbar spine done on 12/24/2024, MRI done on on 12/25/2024, CT chest abdomen pelvis done on 11/17/2024. The CT from October did show an L3 compression fracture which is unchanged in the current CT suggesting that the L3 fracture is old. The L2 vertebra shows a burst fracture confirmed on MRI to be acute, as this was not present in October CT. There is significant intravertebral hematoma as well as a small epidural hematoma suggesting this is acute versus subacute. Kummel lesion cannot be ruled out due to the well-defined fluid signal within the vertebra, also considering that the trauma was in August. Infectious or neoplastic pathology can also not be ruled out as the MRI report seems inconclusive regarding this. CT chest abdomen pelvis from October did not report any obvious known tumors in those areas to be source of metastasis. I recommend obtaining upright x-rays either in sitting or standing position if patient is able to of the lumbar spine. I would recommend ruling out sepsis or other source of infection, as patient has had sweating although temperatures have been normal. It appears she has a current UTI. Would prefer ruling out and treating any infection prior to any spinal procedure. Patient would need to be off of any blood thinners prior to any cement augmentation procedure. I discussed treatment options for her. As neoplastic lesion cannot be completely ruled out, her options would be to do a delayed interval MRI versus a biopsy, and likely cement augmentation at the same setting. Explained to her that cement augmentation may not be completely risk-free for her. She has a burst fracture component with epidural hematoma, she has been on blood thinners, cement extravasation and epidural hematoma would be serious risks for this procedure. Patient says that she has been off of Xarelto since admission and I would confirm that prior to recommending kyphoplasty. Patient would also like to think over and talk to her family prior to consenting for kyphoplasty. Patient's infection or possible sepsis should be well-controlled prior to this procedure. I will review her upright x-rays once done and we discussed the possibility of kyphoplasty with her. All questions answered. Charges/Coding Visit Charges Inpatient E&M: 22449 Init Hosp L3
[2024-12-26] MEDS: Ceftriaxone 1 GM/50 ML BAG IV (21:35)
[2024-12-26] MEDS: Enoxaparin 40 MG/0.4 ML Syringe SC (21:35)
[2024-12-26] MEDS: MELATONIN 3 MG TABLET PO (21:44)
[2024-12-27] VITALS (7 sets, daily range): BP systolic 108–128; BP diastolic 61–74; PULSE 51–85; RESP 16; TEMP 36.4–37.3; O2SAT 94–100; BMI 28.2
[2024-12-27] MEDS: Acetaminophen 500 MG Tablet 1000 MG PO ×3 (06:37→22:35)
[2024-12-27] MEDS: tiZANidine HCl 2 MG Tablet PO ×2 (06:47→20:01)
[2024-12-27 07:06] LABS: Hematocrit 37.9 % (37-47); Hemoglobin 12.1 g/dL (12.0-15.0); Mean Corp Hgb Conc 31.9 g/dL (32-36); Mean Corpuscular Hgb 32.4 pg (27.0-32.0); Mean Corpuscular Volume 101.6 fL (81-99); Mean Platelet Vol. 10.4 fl (6.2-12.0); Platelet Count 152 K/mm3 (150-450); RBC Distribution Width CV 13.9 % (11.6-14.6); RBC Distribution Width SD 51.7 fl (35.1-43.9); Red Blood Count 3.73 M/mm3 (4.2-5.4); White Blood Count 7.9 K/mm3 (4.4-11.0)
[2024-12-27 07:38] LABS: Anion Gap 4 (5-15); BUN 22 mg/dL (4-19); BUN/Creat Ratio 57.5 RATIO (10-20); Calcium,Total 8.7 mg/dL (7.6-11.0); Carbon Dioxide 28.4 mmol/L (21.0-32.0); Chloride 109 mmol/L (98-108); Creatinine, Serum 0.39 mg/dL (0.70-1.20); EST Glomerular Filtration Rate 99 (>60); Glucose 73 mg/dL (70-99); Potassium 4.1 mmol/L (3.3-5.1); Sodium Level 142 mmol/L (133-145)
--- NOTE | 2024-12-27 07:43 | PN.HOSP_ITS ---
Reason for Visit Reason for Visit: Intractable back pain Subjective Subjective Patient states her pain is still problematic. States that they are talking about doing a kyphoplasty on Monday. Objective Data Objective Data Vital Signs: Vital Signs Temp Pulse Resp BP Pulse Ox O2 Del Method O2 Flow Rate 97.5 F L 55 L 16 126/69 H 100 Nasal Cannula 2 12/27/24 04:20 12/27/24 04:20 12/27/24 04:20 12/27/24 04:20 12/27/24 04:20 12/27/24 04:20 12/27/24 04:20 Oxygen Flow Rate (L/min) 2 Oxygen Delivery Method Nasal Cannula Weight: 65.2 kg Body Mass Index (BMI) 28.2 Intake & Output: Intake and Output for Last 24 Hours 12/25/24 12/26/24 12/27/24 23:59 23:59 23:59 Intake Total 1300 / 1500 350 / 500 300 / 300 Output Total 100 / 100 Balance 1200 / 1400 350 / 500 300 / 300 Lab / Micro Data 12/27/24 06:09 12/27/24 06:09 Labs: Laboratory Results - last 24 hr 12/25/24 05:31: Sodium 141, Potassium 4.1, Chloride 109 H, Carbon Dioxide 26.1, Anion Gap 5, BUN 21 H, Creatinine 0.50 L, Estim Creat Clear Calc 43.99 L, Est GFR (MDRD) Non-Af 93, BUN/Creatinine Ratio 41.0 H, Glucose 71, Calcium 8.4, Phosphorus 3.2, Total Bilirubin 0.61, AST 28, ALT 16, Alkaline Phosphatase 127 H , Total Protein 4.9 L, Albumin 2.6 L, Globulin 2.3, Albumin/Globulin Ratio 1.1 12/26/24 05:49: Sodium 142, Potassium 3.7, Chloride 109 H, Carbon Dioxide 27.8, Anion Gap 5, BUN 23 H, Creatinine 0.44 L, Estim Creat Clear Calc 44.83 L, Est GFR (MDRD) Non-Af 96, BUN/Creatinine Ratio 51.7 H, Glucose 78, Calcium 8.5, Phosphorus 3.0 12/27/24 06:09: WBC 7.9, RBC 3.73 L, Hgb 12.1, Hct 37.9, MCV 101.6 H, MCH 32.4 H , MCHC 31.9 L, RDW Std Deviation 51.7 H, RDW Coeff of Mildred 13.9, Plt Count 152, MPV 10.4, Sodium 142, Potassium 4.1, Chloride 109 H, Carbon Dioxide 28.4, Anion Gap 4 L, BUN 22 H, Creatinine 0.39 L, Estim Creat Clear Calc 44.90 L, Est GFR (MDRD) Non-Af 99, BUN/Creatinine Ratio 57.5 H, Glucose 73, Calcium 8.7 Micro: Microbiology 12/24/24 22:25 Urine, Clean Catch Urine Culture - Preliminary GNR lactose senior controller Gram negative estela Physical Exam Const alert, oriented x3, no apparent distress, average body habitus and well nourished Constitutional Narrative: Elderly, white female, sitting up in a chair at the bedside, appears comfortable, nontoxic General Appearance: cooperative HEENT normocephalic, head/scalp atraumatic and moist oral mucous membranes Resp normal respiratory effort, no retractions, no use of accessory muscles and clear to auscultation bilaterally Auscultation: Negative for rales, rhonchi or wheezes Cardio regular rate, regular rhythm, S1 normal heart sound, S2 normal heart sound, no murmurs, no rub, no gallops and no clicks GI normal to inspection, nondistended, normoactive bowel sounds, soft to palpation and non-tender Extremity no clubbing, cyanosis or edema Extremity Narrative: Pedal pulses are 2+ Neuro oriented x3, moves all extremities and no focal motor deficits Neuro Narrative: Increased pain with movement which limits strength but no significant focal deficits noted Speech: speech normal Psych affect normal Psych Narrative: Eye contact is good and patient interacts appropriately Assessment & Plan Assessment/Plan (1) Intractable back pain: (2) Abnormal finding on urinalysis: (3) Compression fracture of L2: (4) Compression fracture of L3 vertebra: QUALIFIERS: Encounter type: sequela Qualified Code(s): S32.030S - Wedge compression fracture of third lumbar vertebra, sequela PLAN: Plan Intractable low back pain secondary to compression fracture at L2 and L3 due to osteoporosis - CT is suspicious for osteolytic lesions in the thoracic and lumbar spine - Interestingly alk phos is not really that elevated which would be more consistent with metastatic disease - MRI was performed and shows burst fracture with mild retropulsion resulting in mild focal spinal canal stenosis with tiny posterior epidural hematoma suspected, heterogeneous marrow signal with diffuse marrow replacement in the L2 vertebral body, large left periaortic lymph node and multilevel spondylosis without high-grade spinal canal or foraminal stenosis - Patient on Xarelto chronically for A-fib will hold in case procedures are required from orthopedic surgery and/or pain management - Continue lidocaine patch - Continue scheduled Tylenol - Continue muscle relaxants as ordered as needed - Continue as needed oral oxycodone - Continue morphine IV for breakthrough pain - Consult pain management is still pending - Continue calcium supplementation - Continue home vitamin D supplementation as level is greater than 30 - Orthopedic surgery consult is still pending - PT/OT consultation but hold off until after evaluated by orthopedic surgery E. coli and Proteus UTI - Urine culture was sent for dysuria and low culture CFU's are low patient was symptomatic and potentially having procedure so we will complete a course for uncomplicated UTI -Continue ceftriaxone for total of 5 days IV with today being day 3 of 5 - I do suspect any intervention will require eradication or at least 48 hours of treatment of her urine if orthopedic surgery or pain management would like to proceed with anything - Await culture results Generalized weakness and debility secondary to the above - Will likely need placement at discharge -Case management is sending referral to the [facility] - caseworker consulted PAF - Rivaroxaban on hold due to the above - Continue home atenolol -Remains in sinus rhythm GERD - Continue home famotidine Essential hypertension - Continue home Lasix - Continue atenolol - As needed hydralazine for systolic pressure greater than 160 History of psoriatic arthritis - Restart biologic at discharge Depression - Patient is not on any medications - monitor clinically COPD - Continue home inhalers Tobacco abuse - Remote and patient has quit DVT prophylaxis - Home Xarelto on hold -Continue enoxaparin 40 daily CODE STATUS -Full code Charges/Coding Visit Charges Inpatient E&M: 85318 Subs Hosp L2
[2024-12-27] MEDS: Folic Acid 1 MG Tablet PO (08:24)
[2024-12-27] MEDS: Calcium Carbonate 500 MG Tablet PO ×3 (08:25→16:38)
[2024-12-27] MEDS: Lidocaine 5% Patch 2 PATCH TOPICAL (09:53)
[2024-12-27] MEDS: Nystatin Powder 15gm Bottle 1 APPLIC TOPICAL ×2 (09:53→20:02)
[2024-12-27] MEDS: Enoxaparin 40 MG/0.4 ML Syringe SC (09:53)
[2024-12-27] MEDS: Menthol/Lanolin/Calamine/Znox 113 GM Tube 1 APPLIC TOPICAL ×2 (09:54→20:02)
[2024-12-27] MEDS: Atenolol 25 MG Tablet PO (09:55)
[2024-12-27] MEDS: Famotidine 20 MG Tablet PO (09:55)
[2024-12-27] MEDS: Cholecalciferol (VIT D3) 25 MCG TABLET (1,000 UNITS) 50 MCG PO (09:55)
[2024-12-27] MEDS: Polyethylene Glycol 3350 17 GM PACKET PO (09:55)
--- NOTE | 2024-12-27 10:30 | RAD_ITS ---
EXAM: XR Lumbosacral Spine, 2 or 3 Views CLINICAL INDICATION: L2 BURST FX TECHNIQUE: Frontal and lateral views of the lumbar spine and sacrum. COMPARISON: No relevant prior studies available. FINDINGS: VERTEBRAE: Moderate compression deformity of L2 vertebral body. Grade 1 anterior spondylolisthesis of L5 on S1 by 1.4 cm. Degenerative facet arthropathy throughout the lumbar spine, most prominent in the lower lumbar spine. SACRUM/COCCYX: Unremarkable as visualized. No acute fracture. DISC SPACES: Degenerative disc disease throughout the lumbar spine. SOFT TISSUES: Unremarkable. VASCULATURE: Scattered calcified atherosclerotic disease of aorta. RAD/Lumbar Spine 2 or 3 Views IMPRESSION: 1. Moderate compression deformity of L2 vertebral body. 2. Grade 1 anterior spondylolisthesis of L5 on S1 by 1.4 cm. 3. Degenerative changes lumbar spine as described. [facility]
--- NOTE | 2024-12-27 11:03 | PCM.PN.ORT ---
Subjective Subjective LESLI ROSALES, is a pleasant 84 F admitted for pain control of severe low back pain. She is sitting in a recliner eating breakfast at today's visit. Pt has had severe worsening of low back pain since August when she tried to lift her . She was bedridden for a few weeks after that and then was brought to the hospital for sepsis about a month ago. This was then treated but then patient was not able to get back to mobility and continue to be bedridden. She was then brought to the hospital on 12/24/2024. Patient says that she has had severe low back pain that is better controlled since admission and radiates mainly down L leg, mild to R leg and towards bilateral hips and into the thighs. She denies any weakness in the lower extremities. She denies any known previous cancers. Currently being treated for UTI this admission. Objective Data Objective Data Vital Signs: Vital Signs Temp Pulse Resp BP Pulse Ox O2 Del Method O2 Flow Rate 98.4 F 85 16 108/74 100 Nasal Cannula 2 12/27/24 09:49 12/27/24 09:49 12/27/24 09:49 12/27/24 09:49 12/27/24 09:49 12/27/24 09:49 12/27/24 09:49 Oxygen Flow Rate (L/min) 2 Oxygen Delivery Method Nasal Cannula Weight: 143 lb 11.862 oz Body Mass Index (BMI) 28.2 Intake & Output: Intake and Output for Last 24 Hours 12/25/24 12/26/24 12/27/24 23:59 23:59 23:59 Intake Total 1300 / 1500 350 / 500 300 / 300 Output Total 100 / 100 Balance 1200 / 1400 350 / 500 300 / 300 Lab / Micro Data Attestation: I reviewed the patient's lab results. 12/27/24 06:09 12/27/24 06:09 Labs: Laboratory Results - last 24 hr 12/25/24 05:31: Sodium 141, Potassium 4.1, Chloride 109 H, Carbon Dioxide 26.1, Anion Gap 5, BUN 21 H, Creatinine 0.50 L, Estim Creat Clear Calc 43.99 L, Est GFR (MDRD) Non-Af 93, BUN/Creatinine Ratio 41.0 H, Glucose 71, Calcium 8.4, Phosphorus 3.2, Total Bilirubin 0.61, AST 28, ALT 16, Alkaline Phosphatase 127 H, Total Protein 4.9 L, Albumin 2.6 L, Globulin 2.3, Albumin/Globulin Ratio 1.1 12/26/24 05:49: Sodium 142, Potassium 3.7, Chloride 109 H, Carbon Dioxide 27.8, Anion Gap 5, BUN 23 H, Creatinine 0.44 L, Estim Creat Clear Calc 44.83 L, Est GFR (MDRD) Non-Af 96, BUN/Creatinine Ratio 51.7 H, Glucose 78, Calcium 8.5, Phosphorus 3.0 12/27/24 06:09: WBC 7.9, RBC 3.73 L, Hgb 12.1, Hct 37.9, MCV 101.6 H, MCH 32.4 H, MCHC 31.9 L, RDW Std Deviation 51.7 H, RDW Coeff of Mildred 13.9, Plt Count 152, MPV 10.4, Sodium 142, Potassium 4.1, Chloride 109 H, Carbon Dioxide 28.4, Anion Gap 4 L, BUN 22 H, Creatinine 0.39 L, Estim Creat Clear Calc 44.90 L, Est GFR (MDRD) Non-Af 99, BUN/Creatinine Ratio 57.5 H, Glucose 73, Calcium 8.7 Micro: Microbiology 12/24/24 22:25 Urine, Clean Catch Urine Culture - Final Escherichia coli Proteus mirabilis Radiography Diagnostic Testing: L/S spine CT from 12/24/2024: IMPRESSION: 1. Compression abnormalities of the L2 and L3 vertebral bodies may be acute. Marked osteoporosis is seen and there are suspected osteolytic areas throughout the lower thoracic and lumbar spine raising concern for metastatic disease. Consider MRI for further evaluation. 2. Degenerative disc disease. 3. Diffuse annular bulging at L3-4 and L4-5. 4. Other nonacute findings detailed above MRI L/S spine from 12/24/2024: IMPRESSION: 1. Redemonstrated L2 burst fracture with mild retropulsion resulting in mild focal spinal canal stenosis. Tiny posterior epidural hematoma suspected. 2. Heterogeneous marrow signal with diffuse marrow replacement within the L2 vertebral body, perhaps slightly greater than would be expected to represent edema related to fracture. Although incompletely evaluated in the absence of IV contrast, this suggest possible pathologic fracture with underlying infiltrative process/lesion. Correlate with medical history and recommend outpatient follow-up MRI lumbar spine with and without IV contrast for complete evaluation. Some delay to allow at least partial resolution of presumed posttraumatic edema would be helpful in this regard. Few other areas of marrow signal abnormality are identified, favored degenerative and/or related to nondisplaced fracture, most notably at the L5 superior endplate. 3. Minimally enlarged LEFT periaortic node, nonspecific and potentially reactive in the absence of known malignancy. Correlate with medical history and recommend attention on above follow-up. 4. Multilevel spondylosis without high-grade spinal canal or foraminal stenosis identified. 5. Additional description as above. Due for repeat xrays today Physical Exam Const alert, oriented x3, no apparent distress and well nourished General Appearance: cooperative HEENT normocephalic Resp normal respiratory effort and no use of accessory muscles Skin no rashes or lesions noted and no wounds Psych mental status grossly normal and affect normal Spine General: patient alert, patient oriented x3, moves all extremities and normal light touch, pain and propioception Cognition: normal cognition Speech: speech normal SPINE TESTING CERVICAL THORACIC LUMBAR Musculoskeletal Strength 0=absent - 5=normal Details: Skin is pink, warm, dry and intact. No ecchymosis or swelling noted. + pain with ROM and palpation of generalized mid to low lumbar region over vertebrae and bilat paraspinals with mild tightening noted. minimal sx aggravation with palpation of SI joints while seated. Lower ext sensation and strength is intact and equal bilaterally. Calves are soft, supple and nontender. Negative Homans Full range of distal joints with no symptom aggravation Distal motor or sensory intact with brisk cap refill at +2 seconds and palpable DP pulses at 2+ Assessment & Plan Assessment/Plan (1) Intractable back pain: (2) Compression fracture of L3 vertebra: QUALIFIERS: Encounter type: sequela Qualified Code(s): S32.030S - Wedge compression fracture of third lumbar vertebra, sequela (3) Burst fracture of lumbar vertebra: QUALIFIERS: Encounter type: subsequent encounter Fracture type: closed Fracture healing: with delayed healing Qualified Code(s): S32.001G - Stable burst fracture of unspecified lumbar vertebra, subsequent encounter for fracture with delayed healing (4) Osteopenia determined by x-ray: PLAN: Plan Continue with current pain control strategies Continue PT OT as ordered Social work working with SD planning per house medicine to local [facility], anticipate discharge 12/30/[address] Malagon who will follow up regarding today's lumbar film x-ray findings and will follow up regarding risk benefits of kyphoplasty and/or any other interventions. This document has been transcribed using [employer] dictation software. There may be incorrect words, spelling, and punctuation. Charges/Coding Visit Charges Inpatient E&M: 76938 Subs Hosp L3
--- NOTE | 2024-12-27 11:16 | CASEMGMT ---
Social Work- SW completed referral to [facility]. Discharge planning to be determined following procedure on Saturday 12/30. [facility] remains available to follow. ANAY Briceno
[2024-12-27 11:47] LABS: Bedside Glucose 134 mg/dL (74-106)
[2024-12-27] MEDS: oxyCODONE 5 MG Tablet PO (12:30)
--- NOTE | 2024-12-27 15:09 | CASEMGMT ---
Social Work Pt had informed SW that living will was on file at [facility]. SW called [facility] and they do not have a copy of document. Pt notified and elected to complete new living will. SW assisted with completion of documentation. Copy placed on pt chart and original given to pt. SW updated pt that [facility] has accepted pt. Pt to have procedure on Monday. Pt agreeable to SNF placement if she does not feel she is moving well enough to return home at time of discharge. SW to follow up after procedure on Monday. ANAY Reid
[2024-12-27] MEDS: MELATONIN 3 MG TABLET PO (22:35)
[2024-12-27] MEDS: Ceftriaxone 1 GM/50 ML BAG IV (22:35)
[2024-12-28] VITALS (8 sets, daily range): BP systolic 97–144; BP diastolic 49–68; PULSE 48–70; RESP 16–22; TEMP 36.6–37; O2SAT 93–99; BMI 28.3
[2024-12-28] MEDS: oxyCODONE 5 MG Tablet PO ×3 (01:17→20:42)
[2024-12-28] MEDS: Acetaminophen 500 MG Tablet 1000 MG PO ×3 (06:01→20:42)
[2024-12-28] MEDS: tiZANidine HCl 2 MG Tablet PO ×2 (06:04→20:41)
--- NOTE | 2024-12-28 08:16 | PN.HOSP_ITS ---
Reason for Visit Reason for Visit: Back pain-intractable Subjective Subjective Complaining of bilateral hip pain with pain that radiates down the legs. She states the left is worse than right and this is not new. Awaiting for her procedure on Monday. She is asking for stronger pain medicine however we have her on a pretty aggressive regimen there is nothing really to add. She is not painful while she is in bed only when she attempts to move. Objective Data Objective Data Vital Signs: Vital Signs Temp Pulse Resp BP Pulse Ox O2 Del Method O2 Flow Rate 98 F 65 16 144/65 H 96 Room Air 2 12/28/24 06:10 12/28/24 06:10 12/28/24 06:10 12/28/24 06:10 12/28/24 06:10 12/28/24 06:10 12/27/24 22:46 Oxygen Flow Rate (L/min) 2 Oxygen Delivery Method Room Air Weight: 65.5 kg Body Mass Index (BMI) 28.3 Intake & Output: Intake and Output for Last 24 Hours 12/26/24 12/27/24 12/28/24 23:59 23:59 23:59 Intake Total 350 / 500 350 / 550 350 / 350 Balance 350 / 500 350 / 550 350 / 350 Lab / Micro Data 12/27/24 06:09 12/27/24 06:09 Labs: Laboratory Results - last 24 hr 12/27/24 11:28: POC Glucose 134 H Micro: Microbiology 12/24/24 22:25 Urine, Clean Catch Urine Culture - Final Escherichia coli Proteus mirabilis Radiography Diagnostic Testing: Radiology Impression Lumbar Spine X-Ray 12/27/24 10:30 IMPRESSION: 1. Moderate compression deformity of L2 vertebral body. 2. Grade 1 anterior spondylolisthesis of L5 on S1 by 1.4 cm. 3. Degenerative changes lumbar spine as described. Reading Location: [facility] Physical Exam Const alert, oriented x3, no apparent distress, average body habitus and well nourished; Negative for healthy appearing Constitutional Narrative: Elderly, white female, lying in her right side in right side-lying, appears comfortable, nontoxic General Appearance: cooperative HEENT normocephalic and head/scalp atraumatic Extremity Extremity Narrative: Pedal pulses are 2+ Psych affect normal Psych Narrative: Eye contact is good and patient interacts appropriately Assessment & Plan Assessment/Plan (1) Intractable back pain: (2) Abnormal finding on urinalysis: (3) Compression fracture of L2: (4) Compression fracture of L3 vertebra: QUALIFIERS: Encounter type: sequela Qualified Code(s): S32.030S - Wedge compression fracture of third lumbar vertebra, sequela PLAN: Plan Intractable low back pain secondary to compression fracture at L2 and L3 due to osteoporosis - CT is suspicious for osteolytic lesions in the thoracic and lumbar spine - Interestingly alk phos is not really that elevated which would be more consistent with metastatic disease - MRI was performed and shows burst fracture with mild retropulsion resulting in mild focal spinal canal stenosis with tiny posterior epidural hematoma suspected, heterogeneous marrow signal with diffuse marrow replacement in the L2 vertebral body, large left periaortic lymph node and multilevel spondylosis without high-grade spinal canal or foraminal stenosis - Patient on Xarelto chronically for A-fib will hold in case procedures are required from orthopedic surgery and/or pain management - Continue lidocaine patch - Continue scheduled Tylenol - Continue muscle relaxants as ordered as needed - Continue as needed oral oxycodone - Continue morphine IV for breakthrough pain - Continue calcium supplementation - Continue home vitamin D supplementation as level is greater than 30 - Orthopedic surgery is planning for kyphoplasty on Monday - PT/OT consultation but hold off until after evaluated by orthopedic surgery E. coli and Proteus UTI - Urine culture was sent for dysuria and low culture CFU's are low patient was symptomatic and potentially having procedure so we will complete a course for uncomplicated UTI -Continue ceftriaxone for total of 5 days IV with today being day 4 of 5 - I do suspect any intervention will require eradication or at least 48 hours of treatment of her urine if orthopedic surgery or pain management would like to proceed with anything Generalized weakness and debility secondary to the above - Will likely need placement at discharge -Case management is sending referral to [facility]-->hopeful for [facility] on Monday> after procedure - machine 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 leader case 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 PAF - Rivaroxaban on hold due to the above - Continue home atenolol -Remains in sinus rhythm GERD - Continue home famotidine Essential hypertension - Continue home Lasix - Continue atenolol - As needed hydralazine for systolic pressure greater than 160 History of psoriatic arthritis - Restart biologic at discharge Depression - Patient is not on any medications - monitor clinically COPD - Continue home inhalers Tobacco abuse - Remote and patient has quit DVT prophylaxis - Home Xarelto on hold -Continue enoxaparin 40 daily CODE STATUS -Full code Charges/Coding Visit Charges Inpatient E&M: 34704 Subs Hosp L1
[2024-12-28] MEDS: Enoxaparin 40 MG/0.4 ML Syringe SC (10:19)
[2024-12-28] MEDS: Lidocaine 5% Patch 2 PATCH TOPICAL (10:19)
[2024-12-28] MEDS: Polyethylene Glycol 3350 17 GM PACKET PO (10:19)
[2024-12-28] MEDS: Folic Acid 1 MG Tablet PO (10:19)
[2024-12-28] MEDS: Menthol/Lanolin/Calamine/Znox 113 GM Tube 1 APPLIC TOPICAL ×2 (10:20→20:44)
[2024-12-28] MEDS: Famotidine 20 MG Tablet PO (10:20)
[2024-12-28] MEDS: Atenolol 25 MG Tablet PO (10:20)
[2024-12-28] MEDS: Calcium Carbonate 500 MG Tablet PO ×3 (10:20→16:59)
[2024-12-28] MEDS: Nystatin Powder 15gm Bottle 1 APPLIC TOPICAL ×2 (10:20→20:43)
[2024-12-28] MEDS: Cholecalciferol (VIT D3) 25 MCG TABLET (1,000 UNITS) 50 MCG PO (10:20)
[2024-12-28] MEDS: 0.9% Saline Lock 10 ML Syringe IV ×2 (12:06→20:41)
[2024-12-28] MEDS: Ondansetron 4 MG/2 ML Vial IV (12:06)
[2024-12-28 12:32] LABS: Bedside Glucose 116 mg/dL (74-106)
[2024-12-28] MEDS: Magnesium Hydroxide 30 ML UDC PO (13:49)
[2024-12-28] MEDS: MELATONIN 3 MG TABLET PO (20:41)
[2024-12-28] MEDS: Senna/Docusate Sodium 1 Tablet 2 TABLET PO (20:41)
[2024-12-28] MEDS: Ceftriaxone 1 GM/50 ML BAG IV (20:44)
[2024-12-29] VITALS (7 sets, daily range): BP systolic 94–119; BP diastolic 55–66; PULSE 56–63; RESP 16–20; TEMP 36.6–36.9; O2SAT 93–100; BMI 28.0
[2024-12-29] MEDS: 0.9% Saline Lock 10 ML Syringe IV (00:25)
[2024-12-29] MEDS: tiZANidine HCl 2 MG Tablet PO (05:20)
[2024-12-29] MEDS: Acetaminophen 500 MG Tablet 1000 MG PO ×3 (05:21→21:03)
[2024-12-29] MEDS: oxyCODONE 5 MG Tablet PO ×3 (05:21→16:48)
[2024-12-29 05:45] LABS: Hematocrit 38.1 % (37-47); Hemoglobin 12.2 g/dL (12.0-15.0); Mean Corpuscular Hgb 32.4 pg (27.0-32.0); Mean Corpuscular Volume 101.3 fL (81-99); Mean Platelet Vol. 10.5 fl (6.2-12.0); Platelet Count 141 K/mm3 (150-450); RBC Distribution Width CV 14.4 % (11.6-14.6); RBC Distribution Width SD 53.4 fl (35.1-43.9); Red Blood Count 3.76 M/mm3 (4.2-5.4); White Blood Count 7.2 K/mm3 (4.4-11.0)
[2024-12-29 06:09] LABS: Anion Gap 5 (5-15); BUN 15 mg/dL (4-19); BUN/Creat Ratio 42.2 RATIO (10-20); Carbon Dioxide 29.9 mmol/L (21.0-32.0); Chloride 106 mmol/L (98-108); Creatinine, Serum 0.37 mg/dL (0.70-1.20); EST Glomerular Filtration Rate 100 (>60); Glucose 76 mg/dL (70-99); Potassium 4.3 mmol/L (3.3-5.1); Sodium Level 141 mmol/L (133-145)
--- NOTE | 2024-12-29 07:25 | PCM.PN.HOSP ---
Reason for Visit Reason for Visit: Intractable back pain Subjective Subjective Patient states she is having ongoing constipation issues despite aggressive treatment. Is requesting a suppository and possibly an enema if no success with that. Has tried prune juice as well. States she was told that her kyphoplasty will be about 08/01/1930 tomorrow. Objective Data Objective Data Vital Signs: Vital Signs Temp Pulse Resp BP Pulse Ox O2 Del Method O2 Flow Rate 98.2 F 61 20 H 115/66 94 Nasal Cannula 2 12/29/24 05:17 12/29/24 05:17 12/29/24 05:17 12/29/24 05:17 12/29/24 05:17 12/29/24 05:24 12/29/24 05:24 Oxygen Flow Rate (L/min) 2 Oxygen Delivery Method Nasal Cannula Weight: 64.9 kg Body Mass Index (BMI) 28.0 Intake & Output: Intake and Output for Last 24 Hours 12/27/24 12/28/24 12/29/24 23:59 23:59 23:59 Intake Total 350 / 550 400 / 500 100 / 100 Balance 350 / 550 400 / 500 100 / 100 Lab / Micro Data 12/29/24 05:05 12/29/24 05:05 Labs: Laboratory Results - last 24 hr 12/28/24 12:13: POC Glucose 116 H 12/29/24 05:05: WBC 7.2, RBC 3.76 L, Hgb 12.2, Hct 38.1, MCV 101.3 H, MCH 32.4 H, MCHC 32.0, RDW Std Deviation 53.4 H, RDW Coeff of Mildred 14.4, Plt Count 141 L, MPV 10.5, Sodium 141, Potassium 4.3, Chloride 106, Carbon Dioxide 29.9, Anion Gap 5, BUN 15, Creatinine 0.37 L, Estim Creat Clear Calc 44.80 L, Est GFR (MDRD) Non-Af 100, BUN/Creatinine Ratio 42.2 H, Glucose 76, Calcium 9.0 Micro: Microbiology 12/24/24 22:25 Urine, Clean Catch Urine Culture - Final Escherichia coli Proteus mirabilis Physical Exam Const alert, oriented x3, no apparent distress, average body habitus and well nourished; Negative for healthy appearing Constitutional Narrative: Elderly, white female, lying in her right side in right side-lying, appears comfortable, nontoxic General Appearance: cooperative HEENT normocephalic, head/scalp atraumatic and moist oral mucous membranes Resp normal respiratory effort, no retractions, no use of accessory muscles and clear to auscultation bilaterally Auscultation: Negative for rales, rhonchi or wheezes Cardio regular rate, regular rhythm, S1 normal heart sound, S2 normal heart sound, no murmurs, no rub, no gallops and no clicks GI GI Narrative: Very mild distention, bowel sounds are normal, abdomen is soft, nontender Extremity no clubbing, cyanosis or edema Extremity Narrative: Pedal pulses are 2+ Neuro oriented x3, moves all extremities and no focal motor deficits Neuro Narrative: Increased pain with movement which limits strength but no significant focal deficits noted Speech: speech normal Psych affect normal Psych Narrative: Eye contact is good and patient interacts appropriately, laughing and joking today Assessment & Plan Assessment/Plan (1) Intractable back pain: (2) Abnormal finding on urinalysis: (3) Compression fracture of L2: (4) Compression fracture of L3 vertebra: QUALIFIERS: Encounter type: sequela Qualified Code(s): S32.030S - Wedge compression fracture of third lumbar vertebra, sequela PLAN: Plan Intractable low back pain secondary to compression fracture at L2 and L3 due to osteoporosis - CT is suspicious for osteolytic lesions in the thoracic and lumbar spine - Interestingly alk phos is not really that elevated which would be more consistent with metastatic disease - MRI was performed and shows burst fracture with mild retropulsion resulting in mild focal spinal canal stenosis with tiny posterior epidural hematoma suspected, heterogeneous marrow signal with diffuse marrow replacement in the L2 vertebral body, large left periaortic lymph node and multilevel spondylosis without high-grade spinal canal or foraminal stenosis - Continue to hold Xarelto has been off since she has been admitted - Continue lidocaine patch - Continue scheduled Tylenol - Continue muscle relaxants as ordered as needed - Continue as needed oral oxycodone - Continue morphine IV for breakthrough pain - Continue calcium supplementation - Continue home vitamin D supplementation as level is greater than 30 - Orthopedic surgery is planning for kyphoplasty on Monday - PT/OT consultation but hold off until after evaluated by orthopedic surgery Constipation - Continue current bowel regimen which is quite aggressive - Will give 1 suppository - If suppository does not work we will consider enema - Encouraged patient to drink prune juice E. coli and Proteus UTI - Urine culture was sent for dysuria and low culture CFU's are low patient was symptomatic and potentially having procedure so we will complete a course for uncomplicated UTI -Continue ceftriaxone for total of 5 days IV with today being day 5 of 5 -Stop antibiotics as she has received her last dose Generalized weakness and debility secondary to the above - Plan is for the [facility]--> anticipate Monday-- - nurse case management consulted PAF - Rivaroxaban on hold due to the above--restart once okay with> orthopedic surgery - Continue home atenolol - Remains in sinus rhythm GERD - Continue home famotidine Essential hypertension - Continue home Lasix - Continue atenolol - As needed hydralazine for systolic pressure greater than 160 History of psoriatic arthritis - Restart biologic at discharge Depression - Patient is not on any medications - monitor clinically COPD - Continue home inhalers Tobacco abuse - Remote and patient has quit DVT prophylaxis - Home Xarelto on hold - Continue enoxaparin 40 daily CODE STATUS -Full code Charges/Coding Visit Charges Inpatient E&M: 94110 Subs Hosp L2
[2024-12-29] MEDS: Calcium Carbonate 500 MG Tablet PO ×3 (08:53→16:39)
[2024-12-29] MEDS: Enoxaparin 40 MG/0.4 ML Syringe SC (08:53)
[2024-12-29] MEDS: Lidocaine 5% Patch 2 PATCH TOPICAL (08:53)
[2024-12-29] MEDS: Menthol/Lanolin/Calamine/Znox 113 GM Tube 1 APPLIC TOPICAL ×2 (08:54→21:04)
[2024-12-29] MEDS: Famotidine 20 MG Tablet PO (08:54)
[2024-12-29] MEDS: Folic Acid 1 MG Tablet PO (08:54)
[2024-12-29] MEDS: Atenolol 25 MG Tablet PO (08:54)
[2024-12-29] MEDS: Cholecalciferol (VIT D3) 25 MCG TABLET (1,000 UNITS) 50 MCG PO (08:54)
[2024-12-29] MEDS: Nystatin Powder 15gm Bottle 1 APPLIC TOPICAL ×2 (08:56→21:04)
[2024-12-29] MEDS: Bisacodyl 10 MG Suppository RC (09:26)
[2024-12-30] VITALS (13 sets, daily range): BP systolic 120–149; BP diastolic 64–88; PULSE 67–83; RESP 14–18; TEMP 36.4–37.4; O2SAT 87–100; BMI 27.9; BMI 27.8
[2024-12-30] MEDS: Atenolol 25 MG Tablet PO (08:32)
[2024-12-30] MEDS: Ondansetron 4 MG/2 ML Vial IV (09:47)
[2024-12-30] MEDS: 0.9% Saline Lock 10 ML Syringe IV ×2 (09:47→21:09)
[2024-12-30] MEDS: Lactated Ringers 1,000 ML 15 ML IV (11:59)
--- NOTE | 2024-12-30 12:05 | PN.ORTHO_ITS ---
Subjective Subjective Saw patient in preop. Continues to have low back pain and some radiation towards bilateral hips. No other changes. Objective Data Objective Data Vital Signs: Vital Signs Temp Pulse Resp BP Pulse Ox O2 Del Method O2 Flow Rate 98.8 F 67 16 134/64 H 98 Nasal Cannula 2 12/30/24 10:43 12/30/24 10:43 12/30/24 10:43 12/30/24 10:43 12/30/24 10:43 12/30/24 10:43 12/30/24 10:43 Oxygen Flow Rate (L/min) 2 Oxygen Delivery Method Nasal Cannula Weight: 141 lb 12.116 oz Body Mass Index (BMI) 27.8 Intake & Output: Intake and Output for Last 24 Hours 12/28/24 12/29/24 12/30/24 23:59 23:59 23:59 Intake Total 400 / 500 100 / 100 Balance 400 / 500 100 / 100 Lab / Micro Data 12/29/24 05:05 12/29/24 05:05 Micro: Microbiology 12/24/24 22:25 Urine, Clean Catch Urine Culture - Final Escherichia coli Proteus mirabilis Physical Exam Narrative Examination of the back shows midline and paraspinal tenderness throughout the lumbar spine. Difficult to assess for spinous process tenderness. Neurologic bilateral lower extremity shows 5 x 5 power normal shows normal sensations in all dermatomes. Assessment & Plan Assessment/Plan (1) Burst fracture of lumbar vertebra: QUALIFIERS: Encounter type: subsequent encounter Fracture type: c losed Fracture healing: with delayed healing Qualified Code(s): S32.001G - Stable burst fracture of unspecified lumbar vertebra, subsequent encounter for fracture with delayed healing (2) Compression fracture of L3 vertebra: QUALIFIERS: Encounter type: sequela Qualified Code(s): S32.030S - Wedge compression fracture of third lumbar vertebra, sequela (3) Osteopenia determined by x-ray: PLAN: Plan Again reviewed CT of lumbar spine done on 12/24/2024, MRI done on on 12/25/2024, CT chest abdomen pelvis done on 11/17/2024, upright x-ray from Monday. The CT from October did show an L3 compression fracture which is unchanged in the current CT suggesting that the L3 fracture is old. The L2 vertebra shows a burst fracture confirmed on MRI to be acute, as this was not present in October CT. There is significant intravertebral hematoma as well as a small epidural hematoma suggesting this is acute versus subacute. Kummel lesion cannot be ruled out due to the well-defined fluid signal within the vertebra, also considering that the trauma was in August. Infectious or neoplastic pathology can also not be ruled out as the MRI report seems inconclusive regarding this. CT chest abdomen pelvis from October did not report any obvious known tumors in those areas to be source of metastasis. Lumbar x-ray shows significant height loss at L2, but unchanged L3. Patient has had a UTI but has been treated with antibiotics for the last few days. Patient has been off of Xarelto. I discussed treatment options for her. As neoplastic lesion cannot be completely ruled out, her options would be to do a delayed interval MRI versus a biopsy, and likely cement augmentation at the same setting. Explained to her that cement augmentation may not be completely risk-free for her. She has a burst fracture component with epidural hematoma, she has been on blood thinners, cement extravasation and epidural hematoma would be serious risks for this procedure. Despite these additional risks, patient has been having difficulty with ambulation due to severe pain and would like to proceed with cement augmentation. All risk benefits and alternatives were discussed. L2 kyphoplasty will be the procedure. The risks include but are not limited to infection, bleeding, hematoma formation, nerve injury, cement extravasation, DVT, pulmonary embolism, epidural hematoma, persistent pain, persistent numbness and weakness, persistent difficulty with ambulation, pneumonia, atelectasis, cement embolism, hypotension, cardiopulmonary event. Patient understands and agrees to proceed with L2 kyphoplasty. Consent was signed. Charges/Coding Visit Charges Inpatient E&M: 24466 Subs Hosp L3
--- NOTE | 2024-12-30 12:20 | PCM.PRE.AN2 ---
ASA Classification* ASA Classification ASA Classification: 3 Assessment & Plan Anesthesia* Anesthesia Assessment Anesthesia Assessment: Discussed sedation and/or anesthesia options, risks, benefits, and alternatives with patient/parents/legal guardian/POA. Questions invited. The patient/parents/legal guardian/POA seems to understand and agrees to proceed with anesthesia plan. Reviewed the physical assessment, medical history, allergy history and patient home medications list prior to surgery/procedure/anesthetic and documented any changes. Performed airway and anesthesia risk assessments. Anesthesia Type Anesthesia Type: MAC History Source History Obtained from:: Patient and Chart Anesthesia Focused Assessment* Temperature: 98.8 F Pulse Rate: 67 Blood Pressure: 134/64 Respiratory Rate: 16 Pulse Ox: 98 Oxygen Delivery Method: Room Air Oxygen Flow Rate (L/min): 2 Airway Assessment Mouth opens: >3 cm Mallampati Score: III Teeth Condition: Intact Neck Range of motion (ROM): Limited ROM (Somewhat decreased extension) Comment: Short thyromental distance Focused Labs Anesthesia Preop lab: CBC WBC 7.2 K/mm3 (4.4-11.0) 12/29/24 05:05 12/29/24 RBC 3.76 M/mm3 (4.2-5.4) L 12/29/24 05:05 12/29/24 Hgb 12.2 g/dL (12.0-15.0) 12/29/24 05:05 12/29/24 Hct 38.1 % (37-47) 12/29/24 05:05 12/29/24 Plt Count 141 K/mm3 (150-450) L 12/29/24 05:05 12/29/24 CHEMISTRY Potassium 4.3 mmol/L (3.3-5.1) 12/29/24 05:05 12/29/24 Sodium 141 mmol/L (133-145) 12/29/24 05:05 12/29/24 Magnesium 2.1 mg/dL (1.5-2.2) 12/24/24 16:20 12/24/24 Phosphorus 3.0 mg/dL (2.7-4.5) 12/26/24 05:49 12/26/24 BUN 15 mg/dL (4-19) 12/29/24 05:05 12/29/24 Creatinine 0.37 mg/dL (0.70-1.20) L 12/29/24 05:05 12/29/24 Glucose 76 mg/dL (70-99) 12/29/24 05:05 12/29/24 POC Glucose 116 mg/dL (74-106) H 12/28/24 12:13 12/28/24 TSH 1.160 uIU/mL (0.300-4.200) 12/24/24 16:20 12/24/24 COAG PT 18.8 SECONDS (11.7-14.9) H 11/18/24 02:55 11/18/24 Pre-Assessment Diagnosis/Proposed Procedure Planned Operative Procedure(s): Kyphoplasty Anesthesia History 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 When Was Last Pacemaker Check QUESTION #4 FULL TEXT: You/Your Family Experience fever (hyperthermia) with Anesthesia Last Oral Intake Last Oral intake: Last Oral Intake NPO since 00:00 12/30/24 10:43 Meds taken in AM with sips of Yes 12/30/24 10:43 water? Meds patient instructed to atenolol 12/30/24 10:43 take am of surgery PONV PONV - vp software engineering: PONV - vp software engineering Female HX of Motion Sickness HX of N/V After Surgery Non-Smoker Duration of Surgery greater than 60 minutes Number of Risk Factors PONV Score Height & Weight Height & Weight: Anesthesia: Height & Weight Height 4 ft 11.84 in 12/30/24 10:43 Weight: 64.3 kg 12/30/24 10:43 Body Mass Index (BMI) 27.8 12/30/24 10:43 Respiratory Assessment Respiratory Assessment - vp software engineering: Respiratory Tract Infection Hx - vp software engineering Hx Respiratory Tract Infection Yes: pneumonia 12/29/24 19:49 Any additional information?: Yes Hx Respiratory Tract Infection: Yes (Pneumonia was back in August. She is now clear.) STOP Sleep Apnea STOP Sleep Apnea - vp software engineering: STOP Sleep Apnea - vp software engineering Hx Hypertension Yes 12/25/24 13:07 Hx Sleep Apnea No 12/24/24 21:20 CPAP BIPAP Do you snore loudly (louder No 12/24/24 21:20 than talking or can be heard Do you often feel tired/ No 12/24/24 21:20 fatigued/ sleepy during daytime? Has anyone observed you stop No 12/24/24 21:20 breathing during sleep? STOP Results Negative 12/24/24 21:20 QUESTION #5 FULL TEXT : Do you snore loudly (louder than talking or can be heard through closed doors)? 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 Specify any problems Hx of Preganancy in last 3 N/A 12/24/24 21:20 Months Nurse Filling Out Transfusion MMELUCH 12/24/24 21:20 & Questions: Date: 12/24/24 12/24/24 21:20 Time: 21:22 12/24/24 21:20 Patient unable to answer at this time (ie. confused, unrespo /Reproduction History /Reproductive History - vp software engineering: /Reproductive Hx- vp software engineering Hx Now No 12/29/24 19:49 Gestational Age (in weeks): EDC: Hx Hx Para Hx Section SAB No 12/29/24 19:49 Active Medications Active Medications: Current Medications Generic Name Dose Route Start Last Admin Trade Name Freq PRN Reason Stop Dose Admin Acetaminophen 1,000 mg 12/25/24 14:00 12/30/24 05:49 Acetaminophen 500 Mg Tablet PO Not Given Q8 SUKHJINDER Albuterol Sulfate 2.5 mg 12/24/24 21:14 Albuterol 2.5 Mg/3 Ml Vial.Neb. INHALATION Q4H PRN PRN dyspnea Atenolol 25 mg 12/25/24 10:00 12/30/24 08:32 Atenolol 25 Mg Tablet PO 25 mg DAILY SUKHJINDER Administration Protocol Calamine/Phenol 1 applic 12/24/24 22:00 12/29/24 21:04 Menthol/Lanolin/Calamine/Znox 113 Gm Tube TOPICAL 1 applic BID SUKHJINDER Administration Protocol Calcium Carbonate 500 mg 12/25/24 08:00 12/29/24 16:39 Calcium Carbonate 500 Mg Tablet PO 500 mg TIDCM SUKHJINDER Administration Cholecalciferol 50 mcg 12/25/24 10:00 12/29/24 08:54 Cholecalciferol (Vit D3) 25 Mcg Tablet (1,000 Units) PO 50 mcg DAILY SUKHJINDER Administration Enoxaparin Sodium 40 mg 12/26/24 20:00 12/29/24 08:53 Enoxaparin 40 Mg/0.4 Ml Syringe SC 40 mg DAILY SUKHJINDER Administration Famotidine 20 mg 12/25/24 10:00 12/29/24 08:54 Famotidine 20 Mg Tablet PO 20 mg DAILY SUKHJINDER Administration Folic Acid 1 mg 12/25/24 08:00 12/29/24 08:54 Folic Acid 1 Mg Tablet PO 1 mg BREAKFAST SUKHJINDER Administration Hydralazine HCl 5 mg 12/24/24 20:57 Hydralazine 20 Mg/Ml Vial IV Q8H PRN PRN SBP GREATER THAN 160 Protocol Sodium Chloride 250 mls @ 15 mls/hr 12/24/24 20:58 IV .[id number] PRN Saline Flush Lactated Ringer's 1,000 mls @ 15 mls/hr 12/30/24 12:00 12/30/24 11:59 IV 15 mls/hr .Q48H SUKHJINDER Administration Ipratropium [place] 0.5 mg 12/24/24 21:15 Ipratropium 0.5 Mg/2.5 Ml Solution INHALATION Q6H PRN PRN shortness of breath Lidocaine 2 patch 12/25/24 10:00 12/29/24 08:53 Lidocaine 5% Patch TOPICAL 2 patch DAILY [facility] Administration Protocol Magnesium Hydroxide 30 ml 12/24/24 20:57 12/28/24 13:49 Magnesium Hydroxide 30 Ml Udc PO 30 ml DAILY PRN PRN Administration Constipation Melatonin 3 mg 12/24/24 20:57 12/28/24 20:41 Melatonin 3 Mg Tablet PO 3 mg QHS PRN PRN Administration INSOMNIA Morphine Sulfate 2 mg 12/24/24 20:57 12/25/24 02:40 Morphine 2 Mg/Ml Syringe IV 2 mg Q4H PRN PRN Administration Pain Score 6-10 Nystatin 1 applic 12/24/24 22:00 12/29/24 21:04 Nystatin Powder 15gm Bottle TOPICAL 1 applic BID [facility] Administration Protocol Ondansetron HCl 4 mg 12/24/24 20:57 12/30/24 09:47 Ondansetron 4 Mg/2 Ml Vial IV 4 mg Q8H PRN PRN Administration NAUSEA/VOMITING Oxycodone HCl 5 mg 12/25/24 07:30 12/29/24 16:48 Oxycodone 5 Mg Tablet PO 5 mg Q4H PRN PRN Administration Pain Score 4-5 or Pre PT/OT Polyethylene Glycol 17 gm 12/25/24 10:00 12/29/24 10:27 Polyethylene Glycol 3350 17 Gm Packet PO Not Given DAILY SUKHJINDER Promethazine HCl 12.5 mg 12/24/24 20:57 Promethazine 25 Mg/Ml Syringe IM Q6H PRN PRN Breakthrough nausea/vomiting Rivaroxaban 20 mg 12/25/24 10:00 Rivaroxaban 20 Mg Tablet PO DAILY SUKHJINDER Senna/Docusate Sodium 2 tablet 12/25/24 07:32 12/28/24 20:41 Senna/Docusate Sodium 1 Tablet PO 2 tablet DAILY PRN PRN Administration CONSTIPATION Sodium Chloride 10 - 40 ml 12/24/24 20:58 12/30/24 09:47 0.9% Saline Lock 10 Ml Syringe IV 10 ml UD PRN Administration SALINE FLUSH Tizanidine HCl 2 mg 12/25/24 09:01 12/29/24 05:20 Tizanidine Hcl 2 Mg Tablet PO 2 mg Q8H PRN PRN Administration spasm PFSH Medical History Anxiety Depression Chronic pain GERD (gastroesophageal reflux disease) On home oxygen therapy Atrial fibrillation Congestive heart failure (CHF) Hypertension Shingles Psoriatic arthritis COPD (chronic obstructive pulmonary disease) A-fib Home Medications ?Medication ?Instructions ?Recorded ?Last Taken ?Type atenolol 25 mg tablet 25 mg PO DAILY Atrial fibrillation 06/26/21 12/30/24 History famotidine 20 mg tablet 20 mg PO DAILY 06/26/21 12/24/24 History folic acid 1 mg tablet 1 mg PO DAILY supplement 06/26/21 12/24/24 History rivaroxaban 20 mg tablet (Xarelto) 20 mg PO DAILY 06/26/21 12/24/24 History cholecalciferol (vitamin D3) 50 50 mcg PO DAILY 11/17/24 12/24/24 History mcg (2,000 unit) capsule furosemide 20 mg tablet 20 mg PO DAILY 11/17/24 Unknown History albuterol sulfate 90 mcg/actuation 2 puff inhalation Q6H PRN dyspnea 11/18/24 Unknown History aerosol inhaler tiotropium bromide 18 mcg capsule 1 cap inhalation DAILY PRN 11/18/24 12/24/24 History with inhalation device (Spiriva shortness of breath with HandiHaler) lidocaine 5 % topical patch 2 patch topical DAILY #0 ea 11/24/24 Unknown Rx oxycodone-acetaminophen 5 mg-325 1 tab PO TID PRN pain 12/24/24 Unknown History mg tablet risankizumab-rzaa 150 mg/mL 150 mg subcut Q90D 12/24/24 12/18/24 History subcutaneous pen injector (Skyrizi) Allergy/AdvReac Type Severity Reaction Status Date / Time No Known Allergies Allergy Verified 12/24/24 15:23 Surgical History History of partial hysterectomy History of bladder suspension procedure History of appendectomy History of cholecystectomy H/O hernia repair Social History household members: none Smoking Status: Former smoker substance use type: does not use Review of Systems (Anesthesia) ROS Narrative System reviewed and no additional complaints, except as documented.
--- NOTE | 2024-12-30 12:45 | BON_PTH ---
PATIENT: LESLI ROSALES LOC: [facility] U#:[id number] AGE/SX: 84/F ROOM: [place] RE12/24/[address]: Dr. Goldy Warren DO : 1940 BED: 1 DIS: 01/01/2025 SPEC #: [id number] RECD: 12/30/24 18:15 STATUS: EDUARDA REQ #: [id number] PAMELA: 12/30/24 12:[address]: Mike Malagon DEPT: SURGICAL PATHOLOGY RECD BY: Marlo Cadet ENTERED: 12/31/24 08:40 SP TYPE: Bone OTHR DR: MD Dr. Kevin Richardson DO Dr. Kathryn Lee, DO Dr. Mark Tereletsky, Tissues: A - Vertebra, NOS B - Vertebra, NOS Procedures: Decalcification bone/plaque Immunohistochemical Stains Surgery Specimen Level IV Comments: @ Ordering doctor for DEC edited from to @ by DANIELE at 12/31/24 0840 @ Ordering doctor for SUIV edited from to @ by DANIELE at 12/31/24 0840 @ Submitting doctor edited from to @ by DANIELE at 12/31/24 0840 HEADER OPERATION: L2 kyphoplasty with biopsy PRE-OP DIAGNOSIS: Burst fracture of lumbar vertebrae, compression fracture of L3 vertebrae, osteopenia determined by x-ray TISSUE SUBMITTED: A- L2 biopsy : left, B- L2 biopsy : right MICROSCOPIC DIAGNOSIS A. Bone, left L2 vertebra, biopsy: * Predominately non-viable bone and acellular fibrinous contents (See note) Note: The gage cytokeratin stain is negative B. Bone, right L2 vertebra, biopsy: * Areas of disrupted and thinned bone trabeculae with marrow fibrosis and hemosiderin laden macrophages suggestive of fracture (See note) Note: The gage cytokeratin stain is negative MICROSCOPIC DESCRIPTION Slides are reviewed. GROSS DESCRIPTION A. Received in formalin in a container labeled with the patient's name, date of , and L2 biopsy-left is a 0.9 cm in length by 0.2 cm in diameter friable core biopsy of erazo-brown bone. Submitted entirely in A1 following decalcification in Immunocal solution. B. Received in formalin in a container labeled with the patient's name, date of , and L2 biopsy-right is a 1.1 cm in length by 0.3 cm in diameter core biopsy of erazo and firm bone. Submitted entirely in B1 following decalcification in Immunocal solution. [facility] 12-31-2024 CPT:27999m5,97033x4,35252j6
[2024-12-30] MEDS: Ipratropium/Albuterol Sulfate 3 ML AMPUL.NEB INHALATION (13:00)
--- NOTE | 2024-12-30 13:12 | RAD_ITS ---
PROCEDURE: Kyphoplasty of the L2 vertebrae. REASON FOR EXAM: L2 KYPHOPLASTY TECHNIQUE: Intraoperative fluoroscopic services provided for kyphoplasty of the L2 vertebrae. 59.8 seconds of fluoroscopy. 18.97 mGy. COMPARISON: Prior study dated December 27, 2024. FINDINGS: Intraoperative imaging provided for kyphoplasty of the L2 vertebrae. RAD/Lumbar Spine 2 or 3 Views IMPRESSION: Intraoperative imaging provided for kyphoplasty of the L2 vertebrae. Reading Location: [facility]
[2024-12-30] MEDS: Cefazolin 2 GM in 0.9% Normal Saline (100mL Bag) 100 ML IV ×2 (13:20→21:07)
[2024-12-30] MEDS: Bupiv/Epi 0.25% 30 ML Vial (13:53)
[2024-12-30] MEDS: Lidocaine 1% (30 ml sdv) 30 ML Vial (13:53)
--- NOTE | 2024-12-30 14:10 | OP.PCM_ITS ---
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 Type of Anesthesia: General RN Documented Start/Stop Times: Operation Date: 12/30/24 12:45 Case Time Into Pre-Op 12/30/24 11:40 Anesthesia Start 12/30/24 13:07 Into Room 12/30/24 13:07 Procedure Start 12/30/24 13:35 Procedure End 12/30/24 14:03 Anesthesia End 12/30/24 14:07 Out of Room 12/30/24 14:07 Procedure Start Time: 13:35 Procedure Stop Time: 14:03 Select all DRAINS/GRAFTS/IMPLANTS that apply: Implanted device Implanted device details: Bone cement?kyphoplasty Estimated Blood Loss: 5 cc Specimen collected: Yes Description of specimen(s) removed: Multiple body biopsy through the right and left transpedicular approach Description of surgery: ATTENDING SURGEON: Mike Malagon MD YOKER MACHINE OPERATOR: none PREOPERATIVE DIAGNOSIS: L2 pathologic burst fracture POSTOPERATIVE DIAGNOSIS: Same PROCEDURE PERFORMED: L2 kyphoplasty CPT 91570 INDICATIONS FOR THE PROCEDURE: The patient is a 84-year-old lady, who presents with back pain and was found to have a pathological burst fracture at L2. Imaging showed L2 compression fracture with burst component with osteopenia. MRI could not identify any pathologic lesion. Patient does not have any known primary tumor. Possibility of intravertebral cleft was discussed. After failing conservative management, the patient requested cement augmentation with kyphoplasty. Risk benefits were discussed in detail. The risks include but are not limited to infection, bleeding, hematoma formation, nerve or spinal cord injury, DVT, pulmonary embolism, cement Moll[place], hypertension, cardiac arrest, persistent pain, need for further procedures, cement extravasation, future insufficiency fractures. After a discussion of the risks and benefits of the procedure, consent was signed for the procedure. DETAILS OF PROCEDURE: Patient was met in the preoperative holding area and the correct site was marked. The patient was brought back to the operative suite. Timeout was performed. Patient was carefully positioned flat Juve table with pillows. MAC anesthesia sedation was performed. Back was prepped and draped in usual fashion. Timeout was again performed. C-arm AP and lateral view was then taken. 2 C-arms were positioned in a way that L2 was centralized and superior endplate was parallel to the beams. Spinous process was centered between the pedicles. Point of entry was marked with skin marker. local anesthetic was injected subcutaneously. Small stab incision was placed to allow Jamshidi needle. The Jamshidi needle was then taken down up to the lateral edge of the pedicle seen on AP view and confirmed the lateral view. Ja mshidi needle was then malleted into the bone up to the medial wall of the pedicle seen on AP view and confirmed on lateral view to be inside the body. This was then advanced to the anterior third of the vertebral bodies. This was done on both sides. Stylette was removed. Core biopsy was performed. Drill was utilized up to balloon size. Balloon was inserted. The balloon was inflated with radiopaque dye and evaluated on AP lateral C-arm images. Once adequate expansion of the balloon was noticed, the balloons were emptied and removed. Cement was mixed. Once the cement consistency was putty like, this was slowly inserted into the vertebral body through both Jamshidi needles. AP lateral views were confirmed to make sure no cement extravasation occurs. Once adequate cement was placed, time was given to allow cement setting. Jamshidi needles were then removed. Steri-Strips were applied along with 4 x 4 and Tegaderm. AP lateral views showed good cement fill. Patient was then taken to PACU in stable condition and will be discharged from their home. I was present for the entire case. Surgical Findings: See operative note Complications Complications: No
--- NOTE | 2024-12-30 14:15 | PCM.POST.ANE ---
Anesthesia: Postop Eval I Current Vital Signs Temperature: 99.4 F Pulse Rate: 83 Blood Pressure: 130/72 Respiratory Rate: 16 Pulse Ox: 94 Oxygen Delivery Method: Room Air Assessment Airway patent: No Spontaneous unlabored respirations: No Mental status: Awake nausea: No Vomiting: No Anesthesia Complication: No Fluid Hydration Crystalloid volume administer (ml): 500 Total IV fluid infused: 500 Progress Note Anesthesia document: Postop Eval 1 completed: Yes
--- NOTE | 2024-12-30 17:15 | PCM.PROGNOTE ---
Subjective Subjective Patient was seen and examined today, she underwent an L2 kyphoplasty today. Objective Data Objective Data Vital Signs: Vital Signs Temp Pulse Resp BP Pulse Ox O2 Del Method O2 Flow Rate 97.8 F 70 18 149/75 H 97 Nasal Cannula 2 12/30/24 15:17 12/30/24 15:17 12/30/24 15:17 12/30/24 15:17 12/30/24 15:17 12/30/24 15:17 12/30/24 15:17 Oxygen Flow Rate (L/min) 2 Oxygen Delivery Method Nasal Cannula Weight: 64.3 kg Body Mass Index (BMI) 27.8 Intake & Output: Intake and Output for Last 24 Hours 12/28/24 12/29/24 12/30/24 23:59 23:59 23:59 Intake Total 400 / 500 100 / 100 110 / 110 Output Total 100 / 100 Balance 400 / 500 100 / 100 Lab / Micro Data 12/29/24 05:05 12/29/24 05:05 Micro: Microbiology 12/24/24 22:25 Urine, Clean Catch Urine Culture - Final Escherichia coli Proteus mirabilis Radiography Diagnostic Testing: Radiology Impression Lumbar Spine X-Ray 12/30/24 13:12 IMPRESSION: Intraoperative imaging provided for kyphoplasty of the L2 vertebrae. Reading Location: [facility] Physical Exam Const alert, oriented x3 and healthy appearing General Appearance: cooperative, well kempt and well developed Orientation / Consciousness: awake, oriented to person, oriented to place and oriented to time HEENT normocephalic, head/scalp atraumatic and moist oral mucous membranes Eyes PERRL, EOMs intact bilaterally and conjunctivae normal Neck supple, no JVD, thyroid normal and no carotid bruits General: trachea midline Resp normal respiratory effort, normal air movement and clear to auscultation bilaterally Auscultation: Negative for rales, rhonchi or wheezes Cardio regular rate, regular rhythm, S1 normal heart sound, S2 normal heart sound, no murmurs, no rub and no gallops GI normal to inspection, nondistended, normoactive bowel sounds, soft to palpation, non-tender and non-distended Extremity no clubbing, cyanosis or edema Skin no rashes or lesions noted General Skin Exam: no breakdown Neuro oriented x3, CN's II-XII intact bilaterally, no focal motor deficits and no sensory deficits noted Sensorium / Orientation: awake and alert Speech: speech normal Psych affect normal Assessment & Plan Assessment/Plan (1) Burst fracture of lumbar vertebra: QUALIFIERS: Encounter type: subsequent encounter Fracture type: closed Fracture healing: with delayed healing Qualified Code(s): S32.001G - Stable burst fracture of unspecified lumbar vertebra, subsequent encounter for fracture with delayed healing PLAN: Plan 1. L2 pathologic burst fracture-status post L2 kyphoplasty-patient will remain on pain medications for comfort, PT and OT will continue to see the patient #2 acute cystitis-patient has completed antibiotic treatment #3 paroxysmal O-cll-drourvo continues on atenolol, Xarelto was held due to patient's kyphoplasty #4 osteoporosis-patient continues on vitamin D and calcium supplements #5 acute debility secondary to burst fracture of L2-PT OT will continue to see the patient, she may need temporary placement in the intermediate facility for rehab services[facility] if she decides she needs further rehab services as an inpatient. Total clinical time spent by myself addressing patient's medical issues, reviewing all her data, and collaborating with patient's care team: 35 minutes Charges/Coding Visit Charges Inpatient E&M: 32330 Subs Hosp L2
[2024-12-30] MEDS: Calcium Carbonate 500 MG Tablet PO (17:17)
[2024-12-30] MEDS: Famotidine 20 MG Tablet PO (17:17)
[2024-12-30] MEDS: Acetaminophen 500 MG Tablet 1000 MG PO ×2 (17:18→21:09)
[2024-12-30] MEDS: Cholecalciferol (VIT D3) 25 MCG TABLET (1,000 UNITS) 50 MCG PO (17:19)
[2024-12-30] MEDS: Lidocaine 5% Patch 2 PATCH TOPICAL (17:21)
[2024-12-30] MEDS: Folic Acid 1 MG Tablet PO (17:21)
--- NOTE | 2024-12-30 18:16 | CASEMGMT ---
Social Work Received message from Angie at [facility], that patient's SAM does not cover snf or even patient's MCR copays. Patient is in her copay period for SNF benefit, which Angie reports is currently 209 dollars a day. Per Angie, family has not been willing to pursue [employer] [facility] Medicaid. Met with patient this afternoon, after kyphoplasty. Patient reports to be feeling better, but reports has has pain meds and is still numb. Educated patient to response from [facility], and patient's liability of 209 dollars a day. Mentioned the skilled nursing care Medicaid, and that it was the NFs understanding this was not something patient's family was willing to pursue. Discussed with patient, several times throughout conversation, that patient is in original benefit period, meaning patient is in copay days with responsibility of 209 a day, regardless of what SNF patient goes to. Educated that patient could apply for [employer] medicaid, though patient talked through her hopes of assets she wanted to leave to family. Patient reports the granddaughter has been encouraging patient to sell the home and car, so patient and patient's can move into [facility] care. Much supportive listening offered, validating wanting to leave gifts for family but also of the importance of using assets to care for self in the here and now. Patient voiced concern, as learned that patient's is in the ED seeking care after a fall at home. Patient spent much time talking about limitations in being able to care for her spouse, needing to focus on own self care, and boundary setting as able. Discussed with patient again options for going to a SNF, which patient was able to to repeat back, versus going home if feels better. Patient reports hope to go home but is worried about her care needs and demands he may impose. After discussion, agreed that social work would be back to speak with patient again after therapy on the 31 of December, to see how patient is doing and look at what recommendations are versus what patient is wiling to do. Plan: Possible SNF versus return home. SW actively following for discharge planning needs. -COURTNEY Chambers
--- NOTE | 2024-12-30 18:28 | POSTOPAN2_ITS ---
Anesthesia Postop Eval I Sum Postop Eval Completion status Anesthesia document: Postop Eval 1 completed: Yes Anesthesia Postop Eval I Summary Anesthesia Postop Eval I Summary: Anesthesia Postop Eval I: Assessment Summary Airway patent No 12/30/24 14:16 ACTIVITIES [email or web address].[email or web address] Spontaneous unlabored No 12/30/24 14:16 ACTIVITIES SPECIALIST.SOBR respirations Mental status Awake 12/30/24 14:16 ACTIVITIES SPECIALIST.SOBR nausea No 12/30/24 14:16 ACTIVITIES SPECIALIST.SOBR Vomiting No 12/30/24 14:16 ACTIVITIES SPECIALIST.SOBR Anesthesia Postop Eval I: Fluid Summary Crystalloid volume administer 500 12/30/24 14:16 ACTIVITIES SPECIALIST.SOBR (ml) Colloids volume administered ( ml) Blood Product volume administered (ml) Total IV fluid infused 500 12/30/24 14:16 ACTIVITIES SPECIALIST.SOBR Anesthesia Postop Eval I: Summary Notes Anesthesia Complication No 12/30/24 14:16 ACTIVITIES SPECIALIST.SOBR Anesthesia Complication Comment: Post-operative progress note Anesthesia: Postop Eval II Evaluation Mental status: Awake and Calm Pain Level: 2 nausea: No Vomiting: No Complications Anesthesia Complication: No
--- NOTE | 2024-12-30 18:28 | PCM.POSTANE2 ---
Anesthesia Postop Eval I Sum Postop Eval Completion status Anesthesia document: Postop Eval 1 completed: Yes Anesthesia Postop Eval I Summary Anesthesia Postop Eval I Summary: Anesthesia Postop Eval I: Assessment Summary Airway patent No 12/30/24 14:16 COLD [email or web address] Spontaneous unlabored No 12/30/24 14:16 COLD [email or web address] respirations Mental status Awake 12/30/24 14:16 COLD [email or web address] nausea No 12/30/24 14:16 COLD [email or web address].SOBR Vomiting No 12/30/24 14:16 COLD [email or web address].SOBR Anesthesia Postop Eval I: Fluid Summary Crystalloid volume administer 500 12/30/24 14:16 COLD [email or web address].SOBR (ml) Colloids volume administered ( ml) Blood Product volume administered (ml) Total IV fluid infused 500 12/30/24 14:16 COLD [email or web address].[email or web address] Anesthesia Postop Eval I: Summary Notes Anesthesia Complication No 12/30/24 14:16 COLD [email or web address].SOBR Anesthesia Complication Comment: Post-operative progress note Anesthesia: Postop Eval II Evaluation Mental status: Awake and Calm Pain Level: 2 nausea: No Vomiting: No Complications Anesthesia Complication: No
[2024-12-30] MEDS: Nystatin Powder 15gm Bottle 1 APPLIC TOPICAL (21:08)
[2024-12-30] MEDS: Menthol/Lanolin/Calamine/Znox 113 GM Tube 1 APPLIC TOPICAL (21:08)
[2024-12-30] MEDS: tiZANidine HCl 2 MG Tablet PO (21:12)
[2024-12-30] MEDS: MELATONIN 3 MG TABLET PO (21:12)
[2024-12-31 03:25] VITALS: BP 106/64; PULSE 63; RESP 16; TEMP 36.3; O2SAT 100
[2024-12-31] MEDS: Cefazolin 2 GM in 0.9% Normal Saline (100mL Bag) 100 ML IV (05:12)
[2024-12-31] MEDS: Acetaminophen 500 MG Tablet 1000 MG PO ×3 (05:21→22:09)
[2024-12-31 05:42] VITALS: BMI 27.8
[2024-12-31 06:35] VITALS: O2SAT 97
[2024-12-31 07:54] VITALS: BP 139/87; PULSE 67; RESP 16; TEMP 36.8; O2SAT 100
[2024-12-31] MEDS: Calcium Carbonate 500 MG Tablet PO ×3 (08:13→17:51)
[2024-12-31] MEDS: Menthol/Lanolin/Calamine/Znox 113 GM Tube 1 APPLIC TOPICAL ×2 (08:16→22:10)
[2024-12-31] MEDS: Folic Acid 1 MG Tablet PO (08:16)
[2024-12-31] MEDS: Enoxaparin 40 MG/0.4 ML Syringe SC (09:58)
[2024-12-31] MEDS: Nystatin Powder 15gm Bottle 1 APPLIC TOPICAL ×2 (09:59→22:09)
[2024-12-31] MEDS: Atenolol 25 MG Tablet PO (09:59)
[2024-12-31] MEDS: Lidocaine 5% Patch 2 PATCH TOPICAL (10:02)
[2024-12-31] MEDS: Famotidine 20 MG Tablet PO (10:03)
[2024-12-31] MEDS: Cholecalciferol (VIT D3) 25 MCG TABLET (1,000 UNITS) 50 MCG PO (10:03)
--- NOTE | 2024-12-31 13:02 | CASEMGMT ---
Discharge Planning A list of?HH providers including quality and resource use data and consistent with the patient's preferred geographic region, medical needs, and insurance network was created in [facility] Guide.? This list was provided to the RN ROMA. Kristi Chatterjee, Discharge Planning Asst.
--- NOTE | 2024-12-31 13:13 | CASEMGMT ---
Social Work- SW met with pt to discuss discharge planning. SW introduced self and role; pt agreeable to meeting. Pt feels that she is significantly improved and has already made arrangements for her son to pick her up tomorrow. Pt reports that she understands that her is in the hospital and has received several stories about why spouse is in hospital. Pt requests HHC so someone is checking on me and meals on wheels. SW provided information on meals on wheels and collaborated with RNCM on HHC. SW provided education that HHC will only be present for maybe twice per week for an hour; pt expresses understanding. SW remains available to follow. ANAY Briceno
--- NOTE | 2024-12-31 13:19 | PN.ORTHO_ITS ---
Subjective Subjective Postop day 1 L2 kyphoplasty. Patient is doing well postoperatively with her pain well-managed. Patient has been up and walking with therapy. Patient says she has not noticed a complete improvement in her pain since the kyphoplasty but denies any worsening symptoms. Seen with Dr. Malagon. Objective Data Objective Data Vital Signs: Vital Signs Temp Pulse Resp BP Pulse Ox O2 Del Method O2 Flow Rate 98.3 F 67 16 139/87 H 100 Nasal Cannula 2 12/31/24 07:54 12/31/24 07:54 12/31/24 07:54 12/31/24 07:54 12/31/24 07:54 12/31/24 07:54 12/31/24 07:54 Oxygen Flow Rate (L/min) 2 Oxygen Delivery Method Nasal Cannula Weight: 141 lb 8.588 oz Body Mass Index (BMI) 27.8 Intake & Output: Intake and Output for Last 24 Hours 12/29/24 12/30/24 12/31/24 23:59 23:59 23:59 Intake Total 100 / 100 220 / 420 460 / 460 Output Total 100 / 100 Balance 100 / 100 120 / 320 460 / 460 Lab / Micro Data 12/29/24 05:05 12/29/24 05:05 Micro: Microbiology 12/24/24 22:25 Urine, Clean Catch Urine Culture - Final Escherichia coli Proteus mirabilis Radiography Diagnostic Testing: Radiology Impression Lumbar Spine X-Ray 12/30/24 13:12 IMPRESSION: Intraoperative imaging provided for kyphoplasty of the L2 vertebrae. Reading Location: [facility] Physical Exam Narrative Neurological examination of the lower extremity shows 5X5 power. Normal sensation across all dermatomes. Physical examination of the back shows mild saturation of gauze bilaterally. Const alert, oriented x3 and no apparent distress Assessment & Plan Assessment/Plan (1) Status post kyphoplasty: PLAN: Plan Postop day 1 L2 kyphoplasty. Patient is doing well postoperatively. From an orthopedic standpoint the patient is ready for discharge. Reviewed and educated on the use of the incentive spirometer. She will follow-up in the clinic. Patient is in agreement.
--- NOTE | 2024-12-31 13:49 | CASEMGMT ---
Addendum entered by Stephanie Reyes 12/31/24 15:52: Received acceptance from [facility]. [facility] is agency of choice. Original Note: LISA BRANDON notified by SW that pt is requesting to go home with HHC. LISA BRANDON into pt room, pt sitting up in chair. Pt states she feels well enough to return home and safe. She states that she would be interested in HHC. Discussed SN, PT and OT at home, pt agreeable. Provided pt with a list of [facility] [employer] [facility] created by dc medication assistant. Pt chose 1. [facility]. [facility] 3. [facility]. Requested DC medication assistant to send referral at this time.
--- NOTE | 2024-12-31 13:58 | CASEMGMT ---
Discharge Planning Avenue notified that pt plans to return home. Kristi Chatterjee DC Planning Asst.
--- NOTE | 2024-12-31 14:08 | CASEMGMT ---
Addendum entered by Kristi Chatterjee 12/31/24 15:57: [facility] and [facility] accepted. [facility] declined. [facility] is [facility]. Kristi Chatterjee DC Planning Asst. Original Note: Discharge Planning HH referrals sent to [facility], [facility], and [facility]. Kristi Chatterjee DC Planning Asst.
[2024-12-31 14:47] VITALS: BP 115/69; PULSE 84; RESP 16; TEMP 37.2; O2SAT 93
--- NOTE | 2024-12-31 16:55 | PCM.PN.HOSP ---
Reason for Visit Reason for Visit: Diagnoses Elevated white blood cell count, unspecified (12/24/24) Overweight (12/24/24) Paroxysmal atrial fibrillation (12/24/24) Low back pain, unspecified (12/24/24) Dorsalgia, unspecified (12/24/24) Other specified disorders of bone density and structure, unspecified site (12/24/24) Acute cystitis with hematuria (12/24/24) Difficulty in walking, not elsewhere classified (12/24/24) Weakness (12/24/24) Unspecified abnormal findings in urine (12/24/24) Wedge compression fracture of unspecified lumbar vertebra, initial encounter for closed fracture (12/24/24) Stable burst fracture of unspecified lumbar vertebra, initial encounter for closed fracture (12/24/24) Stable burst fracture of unspecified lumbar vertebra, subsequent encounter for fracture with delayed healing (12/24/24) Wedge compression fracture of second lumbar vertebra, initial encounter for closed fracture (12/24/24) Wedge compression fracture of third lumbar vertebra, initial encounter for closed fracture (12/24/24) Wedge compression fracture of third lumbar vertebra, sequela (12/24/24) Other 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 Patient did fairly well with physical therapy today, I feel she needs to be reevaluated tomorrow again to confirm that she can go home. Objective Data Objective Data Vital Signs: Vital Signs Temp Pulse Resp BP Pulse Ox O2 Del Method O2 Flow Rate 99.0 F 84 16 115/69 93 Room Air 2 12/31/24 14:47 12/31/24 14:47 12/31/24 14:47 12/31/24 14:47 12/31/24 14:47 12/31/24 14:47 12/31/24 07:54 Oxygen Flow Rate (L/min) 2 Oxygen Delivery Method Room Air Weight: 64.2 kg Body Mass Index (BMI) 27.8 Intake & Output: Intake and Output for Last 24 Hours 12/29/24 12/30/24 12/31/24 23:59 23:59 23:59 Intake Total 100 / 100 220 / 420 460 / 460 Output Total 100 / 100 Balance 100 / 100 120 / 320 460 / 460 Lab / Micro Data 12/29/24 05:05 12/29/24 05:05 Micro: Microbiology 12/24/24 22:25 Urine, Clean Catch Urine Culture - Final Escherichia coli Proteus mirabilis Physical Exam Narrative alert, oriented x3 and healthy appearing General Appearance: cooperative, well kempt and well developed Orientation / Consciousness: awake, oriented to person, oriented to place and oriented to time HEENT normocephalic, head/scalp atraumatic and moist oral mucous membranes Eyes PERRL, EOMs intact bilaterally and conjunctivae normal Neck supple, no JVD, thyroid normal and no carotid bruits General: trachea midline Resp normal respiratory effort, normal air movement and clear to auscultation bilaterally Auscultation: Negative for rales, rhonchi or wheezes Cardio irregular rate, irregular rhythm, S1 normal heart sound, S2 normal heart sound, no murmurs, no rub and no gallops GI normal to inspection, nondistended, normoactive bowel sounds, soft to palpation, non-tender and non-distended Extremity no clubbing, cyanosis or edema Skin no rashes or lesions noted General Skin Exam: no breakdown Neuro oriented x3, CN's II-XII intact bilaterally, no focal motor deficits and no sensory deficits noted Sensorium / Orientation: awake and alert Speech: speech normal Psych affect normal Assessment & Plan Assessment/Plan (1) Burst fracture of lumbar vertebra: QUALIFIERS: Encounter type: subsequent encounter Fracture type: closed Fracture healing: with delayed healing Qualified Code(s): S32.001G - Stable burst fracture of unspecified lumbar vertebra, subsequent encounter for fracture with delayed healing PLAN: Plan 1. L2 pathologic burst fracture-status post L2 kyphoplasty-postop day 1-patient will remain on pain medications for comfort, PT and OT will continue to see the patient, she will be reevaluated tomorrow for possible discharge home versus admission to group home facility #2 acute cystitis-patient has completed antibiotic treatment #3 paroxysmal U-rng-hyonirp continues on atenolol, Xarelto was held due to patient's kyphoplasty, orthopedic surgery states that she can resume her Xarelto tomorrow #4 osteoporosis-patient continues on vitamin D and calcium supplements #5 acute debility secondary to burst fracture of L2-PT OT will continue to see the patient, she may need temporary placement in the group home facility for rehab services. [facility] the patient if she decides she needs further rehab services as an inpatient. She will be reevaluated tomorrow for possible discharge to their or to her home. Total clinical time spent by myself addressing patient's medical issues, reviewing all her data, and collaborating with patient's care team: 35 minutes Charges/Coding Visit Charges Inpatient E&M: 35441 Subs Hosp L2
[2024-12-31] MEDS: oxyCODONE 5 MG Tablet PO (17:56)
[2024-12-31 22:01] VITALS: BP 129/68; PULSE 73; RESP 16; TEMP 36.8; O2SAT 96
[2024-12-31] MEDS: MELATONIN 3 MG TABLET PO (22:09)
[2025-01-01 03:27] VITALS: BP 148/94; PULSE 69; RESP 16; TEMP 36.8; O2SAT 97
[2025-01-01 05:07] VITALS: BMI 27.8
[2025-01-01] MEDS: Acetaminophen 500 MG Tablet 1000 MG PO ×2 (06:13→13:21)
[2025-01-01 07:35] VITALS: O2SAT 98
[2025-01-01] MEDS: Calcium Carbonate 500 MG Tablet PO ×2 (08:51→11:06)
[2025-01-01] MEDS: Folic Acid 1 MG Tablet PO (08:51)
[2025-01-01] MEDS: Enoxaparin 40 MG/0.4 ML Syringe SC (08:53)
[2025-01-01] MEDS: Lidocaine 5% Patch 2 PATCH TOPICAL (08:53)
[2025-01-01] MEDS: Menthol/Lanolin/Calamine/Znox 113 GM Tube 1 APPLIC TOPICAL (08:53)
[2025-01-01] MEDS: Nystatin Powder 15gm Bottle 1 APPLIC TOPICAL (08:54)
[2025-01-01] MEDS: Famotidine 20 MG Tablet PO (08:54)
[2025-01-01] MEDS: Polyethylene Glycol 3350 17 GM PACKET PO (08:54)
[2025-01-01] MEDS: Cholecalciferol (VIT D3) 25 MCG TABLET (1,000 UNITS) 50 MCG PO (08:55)
[2025-01-01] MEDS: Atenolol 25 MG Tablet PO (08:55)
[2025-01-01 09:20] VITALS: PULSE 66
--- NOTE | 2025-01-01 09:43 | CASEMGMT ---
Addendum entered by Stephanie Reyes 01/01/25 11:20: Provided pt with a medic alert pamphlet and handout. Pt states she used to have one but it was too sensitive and the provider called every time she flung her arm up. Pt states she will review and set up on her own. Pt denies any further needs. Original Note: RN CM into pt room, pt sitting up in chair. Pt is aware that [facility] has accepted her. Pt is ready for dc and asks when she can go home. She is aware that the physician will be rounding soon. Pt denies any other needs.
[2025-01-01 10:00] VITALS: BP 140/86; PULSE 70; RESP 16; TEMP 36.7; O2SAT 96
--- NOTE | 2025-01-01 13:18 | DCINST_ITS ---
Discharge Instructions Diet Discharge Diet: No restrictions DC O2, CPAP, BIPAP needs Home O2 Discharge instructions: No Dressing / Incision Discharge Activity: - (Do not twist or bend, do not fiber picker any object heavier than a gallon of milk) Weight Bearing Status: Full weight bearing Follow Up Care Test Results: Test results from this visit will be discussed in further detail at your follow- up appointment, if applicable. Discharge Plan Admission Admit Date/Time: 12/24/24 19:55 Primary Reason for Your Visit: L2 burst fracture Attending Provider: Goldy Warren Primary Care Provider: SILVIA GUTHRIE Consulting Providers: Kevin Caballero; Daniel Hall; Mike Malagon; Sveta Macias Discharge Orders/Prescriptions Prescriptions: New lidocaine 5 % Adhesive Patch,Medicated 2 patch topical DAILY Qty: 60 0RF Protocol: *Topical Application Instructions APPLICATION INSTRUCTIONS: Apply to painful areas of low back. Rx Instructions: Apply to area of low back pain-change daily oxycodone 5 mg Tablet 5 mg PO Q6H PRN PRN (Reason: Pain Score 4-5 Or Pre Pt/Ot) 7 Days Qty: 35 0RF Rx Instructions: 1-2 every 6 hours as needed for pain Continued atenolol 25 mg tablet 25 mg PO DAILY famotidine 20 mg tablet 20 mg PO DAILY folic acid 1 mg tablet 1 mg PO DAILY Xarelto 20 mg tablet 20 mg PO DAILY cholecalciferol (vitamin D3) 50 mcg (2,000 unit) capsule 50 mcg PO DAILY albuterol sulfate 90 mcg/actuation HFA aerosol inhaler 2 puff inhalation Q6H PRN (Reason: dyspnea) tiotropium bromide [Spiriva with HandiHaler] 18 mcg capsule, w/inhalation device 1 cap inhalation DAILY PRN (Reason: shortness of breath ) Skyrizi 150 mg/mL pen injector 150 mg SUBCUT Q90D Patient Comments: [NO ORIGINAL SIG] Discontinued furosemide 20 mg tablet 20 mg PO DAILY Patient Comments: PT STATES SHE DOESNT TAKE ANYMORE. lidocaine 5 % Adhesive Patch,Medicated 2 patch topical DAILY Qty: 0 0RF Protocol: *Topical Application Instructions APPLICATION INSTRUCTIONS: Apply to back pain Patient Comments: PT CANT FIND, BUT SHOULD BE USING. oxycodone-acetaminophen 5-325 mg tablet 1 tab PO TID PRN (Reason: pain) Referrals / Follow Up: SILVIA GUTHRIE [Other] SILVIA GUTHRIE [Other] Mike Malagon MD [Med Staff - Active Staff] - See Referral Note (In 2 weeks, call for an appointment) Disposition Disposition (needs filled in before D/C Order can be placed): Home, Self Care
[2025-01-01 13:23] VITALS: BP 118/62; PULSE 75; RESP 18; TEMP 36.9; O2SAT 96
--- NOTE | 2025-01-01 13:26 | DS.PCM_ITS ---
Providers Date of Admission: 12/24/24 Date of Discharge: 01/01/25 Primary Care Physician: SILVIA MICHEL Consultations 12/25/24 07:33 Consult: Pain Management Routine Consulting Provider: Daniel Hall Reason for Consult: acute lumbar compression fractures EMERGENT Consult: No Notified: Yes Date Notified: 12/25/24 Time Notified: 08:08 Method of Notification: Answering Service 12/25/24 17:14 Consult: Orthopedics Routine Consulting Provider: Mike Malagon Reason for Consult: Abn MRI Lumbar spine EMERGENT Consult: No Notified: Yes Date Notified: 12/25/24 Time Notified: 17:19 Method of Notification: Text Reason For Visit: SEVERE BACK PAIN READIATING INTO HIPS W/LUMBAR Diagnosis Discharge Diagnosis (1) Burst fracture of lumbar vertebra: Status: Acute Code(s): S32.001A - Stable burst fracture of unspecified lumbar vertebra, initial encounter for closed fracture Qualifiers: Encounter type: subsequent encounter Fracture healing: with delayed healing Fracture type: closed Qualified Code(s): S32.001G - Stable burst fracture of unspecified lumbar vertebra, subsequent encounter for fracture with delayed healing Plan 1. L2 pathologic burst fracture-status post L2 kyphoplasty-postop day 1-patient will remain on pain medications for comfort, PT and OT will continue to see the patient, she will be reevaluated tomorrow for possible discharge home versus admission to halfway facility #2 acute cystitis-patient has completed antibiotic treatment #3 paroxysmal [id number]-bxyozzj continues on atenolol, Xarelto was held due to patient's kyphoplasty, orthopedic surgery states that she can resume her Xarelto tomorrow #4 osteoporosis-patient continues on vitamin D and calcium supplements #5 acute debility secondary to burst fracture of L2-PT OT will continue to see the patient, she may need temporary placement in the halfway facility for rehab services. [facility] if she decides she needs further rehab services as an inpatient. She will be reevaluated tomorrow for possible discharge to their or to her home. Total clinical time spent by myself addressing patient's medical issues, reviewing all her data, and collaborating with patient's care team: 35 minutes Medications at Discharge Home Medications atenolol 25 mg tablet 25 mg PO DAILY Atrial fibrillation 06/26/21 famotidine 20 mg tablet 20 mg PO DAILY 06/26/21 folic acid 1 mg tablet 1 mg PO DAILY supplement 06/26/21 rivaroxaban 20 mg tablet (Xarelto) 20 mg PO DAILY 06/26/21 cholecalciferol (vitamin D3) 50 mcg (2,000 unit) capsule 50 mcg PO DAILY 11/17/24 albuterol sulfate 90 mcg/actuation aerosol inhaler 2 puff inhalation Q6H PRN dyspnea 11/18/24 tiotropium bromide 18 mcg capsule with inhalation device (Spiriva with HandiHaler) 1 cap inhalation DAILY PRN shortness of breath 11/18/24 risankizumab-rzaa 150 mg/mL subcutaneous pen injector (Skyrizi) 150 mg subcut Q90D 12/24/24 lidocaine 5 % topical patch 2 patch topical DAILY #60 ea 01/01/25 oxycodone 5 mg tablet 5 mg PO Q6H PRN PRN Pain Score 4-5 Or Pre Pt/Ot 7 days #35 tabs 01/01/25 Hospital Course Operations - (L2 kyphoplasty) Procedures None Summary of Care Provided Minutes Spent on Discharge: 31 Hospital Course: This 84-year-old white female was seen in the emergency room at [facility] with complaints of severe lower back pain. Patient relayed the fact that she had helped her get up from a fall on the floor and had back pain ever since then-this was approximately 4 months ago. She was evaluated at [facility] at that time and had a CT performed which showed no evidence of fractures, patient was placed on analgesics but since then the back pain has gotten worse. Patient was admitted to the hospital a month ago with sepsis and then was transferred to halfway facility and was recently discharged there on 09 December, she has had increasing mobility problems since then. Workup in the emergency room included a CT of the lumbar spine which showed L2 and L3 compression fractures with may be acute. Orthopedic surgery was contacted and was admitted to [place] [address] and an MRI was performed on the lumbar spine which showed an L2 burst fracture with mild retropulsion resulting in mild focal spinal canal stenosis. There is also multilevel spondylosis without high-grade spinal cord or foraminal stenosis identified. Patient was given analgesics while hospitalized, she underwent a kyphoplasty of L2 and had good resolution of some of her pain. Patient was seen by PT and OT, patient wanted to be discharged home rather than go to a halfway facility. On 01/01/2025, patient was seen and examined: On examination she appeared in good health and spirits, she does not appear to be in any distress. Vital signs as documented. Skin warm and dry and without overt rashes. Neck without JVD, thyroid appears normal, trachea is midline, neck is supple. Lungs clear, normal air movement was noted. Heart exam notable for regular rhythm, normal sounds and absence of murmurs, rubs or gallops. Abdomen unremarkable and without evidence of organomegaly, masses, or abdominal aortic enlargement, bowel sounds are present in all 4 quadrants, no abdominal tenderness was noted. Extremities nonedematous, no cyanosis was noted, no clubbing was noted. Neuro: Cranial nerves II through XII are grossly intact, no focal motor deficits were noted, sensation to light touch and pinprick is intact, motor exam 5/5 throughout. Psych: Patient is alert and oriented x3, she does not appear anxious or depressed, she does not appear agitated. Patient was discharged home in stable condition on 01/01/2025 Weight / BMI Weight Weight: 64.3 kg Body Mass Index (BMI) 27.8 ABG / Lab / Microbiology Data 12/29/24 05:05 12/29/24 05:05 Microbiology: Microbiology 12/24/24 22:25 Urine, Clean Catch Urine Culture - Final Escherichia coli Proteus mirabilis D/C Instructions Discharge Diet: No restrictions Weight Bearing Status: Full weight bearing DC O2, CPAP, BIPAP Needs Home O2 Discharge instructions: No Meaningful Use Info Meaningful Use Meaningful Use Diagnoses (Choose all that apply): None applicable Ischemic Stroke Statin Dosing Therapy Reference: STATIN DOSE THERAPY REFERENCE: * Patients > 75 years receive moderate or high dose statin therapy. * Patients 75 years or YOUNGER should receive HIGH intensity statin dose unless contraindicated. You will be required to document reason for non-treatment if statin daily dose does not meet guidelines. HIGH DOSE STATIN THERAPY DAILY Atorvastatin > than or = to 40 mg Rosuvastatin > than or = to 20 mg Amlodipine + Atorvastatin > than or = to 2.5/40 mg Ezetimibe + Simvastatin 10/80 mg Simvastatin 80mg Discharge Plan Admission Admit Date/Time: 12/24/24 19:55 Primary Reason for Your Visit: L2 burst fracture Attending Provider: Goldy Warren Primary Care Provider: SILVIA MICHEL Consulting Providers: Kevin Caballero; Daniel Hall; Mike Malagon; Sveta Macias Discharge Orders/Prescriptions Prescriptions: New lidocaine 5 % Adhesive Patch,Medicated 2 patch topical DAILY Qty: 60 0RF Protocol: *Topical Application Instructions APPLICATION INSTRUCTIONS: Apply to painful areas of low back. Rx Instructions: Apply to area of low back pain-change daily oxycodone 5 mg Tablet 5 mg PO Q6H PRN PRN (Reason: Pain Score 4-5 Or Pre Pt/Ot) 7 Days Qty: 35 0RF Rx Instructions: 1-2 every 6 hours as needed for pain Continued atenolol 25 mg tablet 25 mg PO DAILY famotidine 20 mg tablet 20 mg PO DAILY folic acid 1 mg tablet 1 mg PO DAILY Xarelto 20 mg tablet 20 mg PO DAILY cholecalciferol (vitamin D3) 50 mcg (2,000 unit) capsule 50 mcg PO DAILY albuterol sulfate 90 mcg/actuation HFA aerosol inhaler 2 puff inhalation Q6H PRN (Reason: dyspnea) tiotropium bromide [Spiriva with HandiHaler] 18 mcg capsule, w/inhalation device 1 cap inhalation DAILY PRN (Reason: shortness of breath ) Skyrizi 150 mg/mL pen injector 150 mg SUBCUT Q90D Patient Comments: [NO ORIGINAL SIG] Discontinued furosemide 20 mg tablet 20 mg PO DAILY Patient Comments: PT STATES SHE DOESNT TAKE ANYMORE. lidocaine 5 % Adhesive Patch,Medicated 2 patch topical DAILY Qty: 0 0RF Protocol: *Topical Application Instructions APPLICATION INSTRUCTIONS: Apply to back pain Patient Comments: PT CANT FIND, BUT SHOULD BE USING. oxycodone-acetaminophen 5-325 mg tablet 1 tab PO TID PRN (Reason: pain) Referrals / Follow Up: Mike Malagon MD [Med Staff - Active Staff] - 01/14/25 10:30 am (In 2 weeks, call for an appointment) Yumiko Michel MD [Non-Staff] - Disposition Disposition (needs filled in before D/C Order can be placed): Home Health Service Charges/Coding Visit Charges Inpatient E&M: 70290 Disch Hosp >30min
--- NOTE | 2025-01-01 13:40 | NURSING ---
pt primary care is Yumiko Michel in [place]
--- NOTE | 2025-01-01 15:58 | CASEMGMT ---
Social Work SW placed call to [facility]PS and provided update on pt discharge home today and that pt's was admitted to the hospital and will be going to a SNF today. ANAY Reid
== END 2025-01-01 13:52 | disposition home health service (06) | DRG 478 ==
LOC: ED 19:41 → MS3 20:14
PROVIDERS: Internal Medicine; Orthopaedic Surgery Orthopaedic Surgery of the Spine; Admitting Provider Internal Medicine; Emergency Provider Emergency Medicine; Visit Provider Internal Medicine
PROC: 0QB03ZX Excision of Lumbar Vertebra, Percutaneous Approach, Diagnostic (ICD-10-PCS; principal; 2024-12-30 12:30)
DX: M80.08XA Age-related osteoporosis with current pathological fracture, vertebra(e), initial encounter for fracture (principal); I50.32 Chronic diastolic (congestive) heart failure; N39.0 Urinary tract infection, site not specified; B96.20 Unspecified Escherichia coli [E. coli] as the cause of diseases classified elsewhere; I11.0 Hypertensive heart disease with heart failure; J44.9 Chronic obstructive pulmonary disease, unspecified; L40.50 Arthropathic psoriasis, unspecified; F32.A Depression, unspecified; I48.0 Paroxysmal atrial fibrillation; K21.9 Gastro-esophageal reflux disease without esophagitis; M41.9 Scoliosis, unspecified; M48.061 Spinal stenosis, lumbar region without neurogenic claudication; R73.9 Hyperglycemia, unspecified; R53.1 Weakness; Z90.710 Acquired absence of both cervix and uterus; R26.89 Other abnormalities of gait and mobility; E66.3 Overweight; R53.81 Other malaise; Z68.27 Body mass index [BMI] 27.0-27.9, adult; Z87.891 Personal history of nicotine dependence; Z79.01 Long term (current) use of anticoagulants; Z79.891 Long term (current) use of opiate analgesic; B96.4 Proteus (mirabilis) (morganii) as the cause of diseases classified elsewhere; Z99.81 Dependence on supplemental oxygen; M85.88 Other specified disorders of bone density and structure, other site
CPT/HCPCS: 36415; 71045; 72100; 72131; 72148; 76000; 80048; 80053; 81001; 82306; 82607; 82746; 82962; 83735; 84100; 84443; 85025; 85027; 87077; 87086; 87088; 87186; 88305; 88311; 88342; 93005; 94668; 97116; 97162; 97166; 97530; 97535; 97802; 99285; C1713; A4216; J2405

== ENCOUNTER 2025-02-11 22:34 | Emergency (ER) | payer MEDICARE, MEDICAID, SELFPAY ==
--- NOTE | 2025-02-11 00:10 | RAD_ITS ---
PROCEDURE: LUMBAR SPINE 2 OR 3 VIEWS 02/12/2025 REASON FOR EXAM: INJURY/PAIN TECHNIQUE: LUMBAR SPINE 2 OR 3 VIEWS COMPARISON: 12/30/2024 FINDINGS: The bones are osteoporotic. The patient is status post vertebroplasty of L2. There is approximately 25% loss of height of the body of L2 and L3. There is severe narrowing of the intervertebral discs of T12-L1. Grade 1 spondylolisthesis of L5 over S1 is seen. There is severe narrowing of the corresponding intervertebral disc. Degenerative changes are seen involving the intervertebral facet joints. There is leftward scoliosis with its angle tip at the level of L2 estimated at 25???. The abdominal aorta is calcified. RAD/Lumbar Spine 2 or 3 Views IMPRESSION: Osteoporosis. Status post vertebroplasty of L2. Compression fracture of the body of L2-3, age unknown. MRI would be helpful fo r further evaluation. Grade 1 spondylolisthesis of L5 over S1 with severe narrowing of the correspond ing axial images. Reading Location: [facility]
[2025-02-11 22:36] VITALS: BP 148/93; PULSE 81; RESP 18; TEMP 36.9; O2SAT 93; BMI 27.1
--- NOTE | 2025-02-11 23:30 | ED.VIS.BACK ---
HPI History of Present Illness Chief Complaint: Back Informant: patient Onset/Context/Timing Onset: Days Context: Gradual Onset Timing: Continuous Quality: Aching Location: Lumbar, Buttock and Left Leg (Left hip) Current Severity: Severe Maximum Severity: Severe Worsened by: improves with Movement Relieved by: Nothing Associated Symptoms Associated Symptoms: Radiation to Left Leg (Occasionally radiates into her left hip) and Constipation; Negative for Numbness, Tingling, Radiation to Right Leg, Fever, Abdominal Pain, Dysuria, Urinary Retention, Urinary Incontinence or Fecal Incontinence Narrative Narrative: Patient presents with back pain that became worse today. Patient states it is gradually gotten worse. Patient has a history of chronic back pain and sees Dr. Hall for pain management. Patient states she had a recent kyphoplasty of a compression fracture in her lumbar spine. Patient states she followed up with her orthopedic surgeon who did x-rays which showed a compression fracture of the vertebrae below the level where she had her kyphoplasty. Patient states her pain radiates into her hips, worse on the left. Patient denies any bowel or bladder changes. Patient denies any saddle anesthesia. Patient states she is constipated due to the Percocet but denies any incontinence or paresthesias. [facility] Medical History Compression fracture of L3 vertebra Osteopenia determined by x-ray Burst fracture of lumbar vertebra Compression fracture of L2 Abnormal finding on urinalysis Intractable back pain Leukocytosis Acute cystitis with hematuria Overweight (BMI 25.0-29.9) Chronic anticoagulation Paroxysmal atrial fibrillation Ambulatory dysfunction Generalized weakness Unable to care for self Inability to perform activities of daily living Closed compression fracture of lumbosacral spine Back pain Anxiety Depression Chronic pain GERD (gastroesophageal reflux disease) On home oxygen therapy Atrial fibrillation Congestive heart failure (CHF) Hypertension Shingles Psoriatic arthritis COPD (chronic obstructive pulmonary disease) A-fib Home Medications ?Medication ?Instructions ?Recorded ?Last Taken ?Type atenolol 25 mg tablet 25 mg PO DAILY Atrial fibrillation 06/26/21 12/30/24 History famotidine 20 mg tablet 20 mg PO DAILY 06/26/21 12/24/24 History folic acid 1 mg tablet 1 mg PO DAILY supplement 06/26/21 12/24/24 History rivaroxaban 20 mg tablet (Xarelto) 20 mg PO DAILY 06/26/21 12/24/24 History cholecalciferol (vitamin D3) 50 50 mcg PO DAILY 11/17/24 12/24/24 History mcg (2,000 unit) capsule albuterol sulfate 90 mcg/actuation 2 puff inhalation Q6H PRN dyspnea 11/18/24 Unknown History aerosol inhaler tiotropium bromide 18 mcg capsule 1 cap inhalation DAILY PRN 11/18/24 12/24/24 History with inhalation device (Spiriva shortness of breath with HandiHaler) risankizumab-rzaa 150 mg/mL 150 mg subcut Q90D 12/24/24 12/18/24 History subcutaneous pen injector (Pemaizi) lidocaine 5 % topical patch 2 patch topical DAILY #60 ea 01/01/25 Unknown Rx oxycodone 5 mg tablet 5 mg PO Q6H PRN PRN Pain Score 4-5 01/01/25 Unknown Rx Or Pre Pt/Ot 7 days #35 tabs Allergy/AdvReac Type Severity Reaction Status Date / Time No Known Allergies Allergy Verified 02/11/25 22:41 Surgical History Status post kyphoplasty History of partial hysterectomy History of bladder suspension procedure History of appendectomy History of cholecystectomy H/O hernia repair Social History household members: none Smoking Status: Former smoker substance use type: does not use ROS ROS ED Constitutional Constitutional ED: Denies chills or fever(s) Eyes Eyes: Denies blurry vision or change in vision ENT ENT ED: Denies rhinorrhea or sore throat Cardiovascular Cardiovascular: Denies chest pain or palpitations Respiratory/Chest Respiratory/Chest: Denies cough or dyspnea Gastrointestinal Gastrointestinal: Denies nausea or vomiting Genitourinary Genitourinary ED: Denies dysuria or hematuria Musculoskeletal Musculoskeletal: Reports back pain and neck pain Integumentary Denies abscess or rash Neurologic Neurologic: Denies headache(s) or weakness Allergic/Immunologic Allergic/Immunologic ED: Denies mouth swelling or urticaria EXAM Physical Exam Const Vital Signs: 02/11/25 22:36 02/12/25 00:35 Temperature 98.4 F Temperature Source Oral Pulse Rate 81 83 Respiratory Rate 18 16 Blood Pressure 148/93 H 146/72 H Blood Pressure Mean 111 96 Pulse Ox 93 91 Positive well nourished and well developed General Appearance ED: well developed and NAD HEENT Reports moist mucous membranes Neck supple and no JVD Resp normal respiratory effort and clear to auscultation bilaterally Cardio regular rate and regular rhythm GI soft to palpation, non-tender and non-distended Back/Spine Lumbar Spine / Lower Back: ROM limited Extremity normal to inspection Neuro oriented x3 and no sensory deficits noted Sensorium / Orientation: alert Motor Exam: strength 5/5 throughout Psych mental status grossly normal MDM MDM MDM Narrative Medical decision making narrative: Differential diagnosis includes compression fracture, spondylolisthesis, muscle strain, and intractable back pain. X-rays of the lumbar spine will be obtained to assess for compression fracture and spondylolisthesis. History & Record Review Additional record(s) reviewed:: Prior outpatient record and Prior ED visit Radiography X-Ray: LS SPine, DJD, Spurring and Compression Diagnostic Testing: Clinical Impression(s) from Imaging Studies Lumbar Spine X-Ray 02/11/25 00:10 IMPRESSION: Osteoporosis. Status post vertebroplasty of L2. Compression fracture of the body of L2-3, age unknown. MRI would be helpful for further evaluation. Grade 1 spondylolisthesis of L5 over S1 with severe narrowing of the corresponding axial images. Reading Location: [place] [id number] X-rays of the lumbar spine were obtained. There are 2 views. On my independent interpretation, there are degenerative changes noted. There is a compression fracture of L3. There is a grade 1 spondylolisthesis of L5 on S1. These are unchanged compared to previous x-rays dated 01/14/2025. Radiologist also interpreted the x-rays and agrees. Treatment and Re-Evaluation Narrative: Patient was given an injection of morphine. Patient was able to ambulate after this. Patient was instructed to follow-up with her primary care physician in 3 to 5 days. Patient was also instructed to follow-up with her pain management physician. Patient was instructed to continue her Percocet as prescribed. Patient understood and was agreeable with the plan. All questions were answered. Discharge Plan Triage Chief Complaint: Back ED Provider: Lucas Wong Dx/Rx/DC Orders Clinical Impression: Acute exacerbation of chronic low back pain, Compression fracture of L3 vertebra Instructions: ED Back Pain (Acute or Chronic) Prescriptions: No Action atenolol 25 mg tablet 25 mg PO DAILY famotidine 20 mg tablet 20 mg PO DAILY folic acid 1 mg tablet 1 mg PO DAILY Xarelto 20 mg tablet 20 mg PO DAILY cholecalciferol (vitamin D3) 50 mcg (2,000 unit) capsule 50 mcg PO DAILY albuterol sulfate 90 mcg/actuation HFA aerosol inhaler 2 puff inhalation Q6H PRN (Reason: dyspnea) tiotropium bromide [Spiriva with HandiHaler] 18 mcg capsule, w/inhalation device 1 cap inhalation DAILY PRN (Reason: shortness of breath ) Skyrizi 150 mg/mL pen injector 150 mg SUBCUT Q90D Patient Comments: [NO ORIGINAL SIG] lidocaine 5 % Adhesive Patch,Medicated 2 patch topical DAILY Qty: 60 0RF Protocol: *Topical Application Instructions APPLICATION INSTRUCTIONS: Apply to painful areas of low back. Rx Instructions: Apply to area of low back pain-change daily oxycodone 5 mg Tablet 5 mg PO Q6H PRN PRN (Reason: Pain Score 4-5 Or Pre Pt/Ot) 7 Days Qty: 35 0RF Rx Instructions: 1-2 every 6 hours as needed for pain Primary Care Provider: Yumiko Michel Referrals: Daniel Hall MD [Med Staff - Active Staff] - 3-5 Days Yumiko Michel MD [Primary Care Provider] - 3-5 Days Print Language: Maori Disposition Disposition: Home, Self Care
--- OUTSIDE RECORDS SUMMARY | 2025-02-11 23:40 | XMS RPT_ITS | CCD ---
Author Organization [facility] Care Team Providers Care Ob Gyn Name Role Phone Nieves Oh Unavailable Unavailable Altagracia, Nieves Unavailable Unavailable Altagracia, Nieves Unavailable Unavailable Anuj Garcia Unavailable Unavailable Altagracia, Nieves Unavailable Unavailable Altagracia, Nieves Unavailable Unavailable Janice Narayan Unavailable Unavailable Altagracia, Nieves Unavailable Unavailable Altagracia, Nieves Unavailable Unavailable Nieves Frias Primary Care Provider Nieves Frias Primary Care Provider [phone] Nieves Frias MD Primary Care Provider Nieves Frias MD Primary Care Provider DR NIEVES FRIAS MD Primary Care Physician Nieves Frias MD Primary Care Provider Nieves Frias Primary Care Provider [phone] Giselle Elizondo MD Primary Care Provider Giselle Elizondo MD Primary Care Provider Giselle Elizondo Primary Care Provider Giselle Elizondo Primary Care Provider Giselle Elizondo MD Primary Care Provider Giselle Elizondo Primary Care Provider Lexi Merino MD Primary Care Provider Derrick MAINFRAME SYSTEMS ENGINEER.ACCOUNT MANAGER TRAINEE, Ana Unavailable GISELLE ELIZONDO Referring Unavailable GISELLE ELIZONDO Primary Care Unavailable KONTAK, GISELLE R Primary Care Unavailable KONTAK, GISELLE R Referring Unavailable CHONDANIA Yanely Attending Unavailable MARTY GUTHRIE Primary Care Unavailable KONTAK, GISELLE R Referring Unavailable KONTAK, GISELLE R Primary Care Unavailable KONTAK, GISELLE R Primary Care Unavailable KEELY GIVENS Referring Unavailable KONTAK, GISELLE R Primary Care Unavailable GUTHRIESILVIA MORENO Primary Care Provider Donald POLANCO, Dr. Ferro Attending Provider [phone] Donald POLANCO, Dr. Ferro Referring Provider [phone] Keila PAULSON, Dr. Cobb Emergency Provider Conor POLANCO, Dr. Chin Admit Provider Conor POLANCO, Dr. Chin Attending Provider Conor POLANCO, Dr. Chin Other Provider Travis POLANCO, Dr. Brown Attending Provider Unavaila ble Juana POLANCO, Dr. Paiz Other Provider Isabel POLANCO, Dr. Sanchez Other Provider Constance POLANCO, Dr. Thrasher Other Provider Natacha POLANCO, Dr. Regalado Other Provider Socrates POLANCO, Dr. Farrar Other Provider Dr. Gato Givens DO Other Provider Nandini POLANCO, Dr. Kevin Hernandez Other Provider Yariel POLANCO, Dr. Samaniego Other Provider [phone] Farideh POLANCO, Dr. Goodrich Other Provider Brandy POLANCO, Dr. Zarate Other Provider Angelina POLANCO, Dr. East Other Provider Dr. Clayton Baig MD Other Provider [phone] Harinder POLANCO, Dr. Lynn Other Provider Dr. Lorna Salvador MD Other Provider Janae POLANCO, Dr. aMria Other Provider Unavailabl serg Sadler MD, Dr. Sprague Other Provider Montana POLANCO, Dr. Branch Other Provider Ky POLANCO, Dr. Berry Other Provider Isabella POLANCO, Dr. Araya Other Provider Erika PAULSON, Dr. Garcia Other Provider Ashley POLANCO, Dr. Li Other Provider Diane POLANCO, Dr. Solis Other Provider Tony PAULSON, Dr. Davila Other Provider Donta POLANCO, Dr. Samson Other Provider Floyd POLANCO, Dr. Lee Other Provider Travis POLANCO, Dr. Brown Other Provider Unavailable Dr. Gato Givens DO Attending Provider Rayne POLANCO, Dr. Cardona Attending Provider Cleveland POLANCO, Marty Primary Care Provider Marty Guthrie MD Primary Care Provider Dr. Kevin Robles MD Referring Provider Unavaila karen Camargo MD, Oskar Emergency Provider [phone] Kevin Caballero DO Admit Provider Unavail able Dr. Kevin Caballero DO Attending Provider Unav ailable Goldy Warren Unavailable Marty Guthrie MD Unavailable SILVIA GUTHRIE Primary Care Provider Dr. Kevin Caballero DO Other Provider Unavail able Dr. Mike Malagon MD Other Provider Dr. Goldy Warren DO Attending Provider Dr. Sveta Macias DO Other Provider Dr. Sveta Macias DO Attending Provider Dr. Mike Malgaon MD Attending Provider Amairani Castorena Attending Provider Dr. Goldy Warren DO Other Provider Aleksandra Ortiz Attending Provider ANA MEZA Attending Unavailable KONTAK, GISELLE R Primary Care Unavailable KONTAK, GISELLE R Attending Unavailable KONTAK, GISELLE R Primary Care Unavailable KEELY GIVENS Attending Unavailable KONTAK, GISELLE R Primary Care Unavailable KONTAK, GISELLE R Attending Unavailable KONTAK, GISELLE R Primary Care Unavailable KEELY GIVENS Attending Unavailable KEELY GIVENS Referring Unavailable KONTAK, GISELLE R Primary Care Unavailable KEELY GIVENS Referring Unavailable KONTAK, GISELLE R Primary Care Unavailable ANA MEZA Referring Unavailable KONTAK, GISELLE R Primary Care Unavailable GUTHRIE, SILVIA Primary Care Provider Unavailabl serg GUTHRIE SILVIA Referring Provider Unavailable FELECIA MERCADO Attending Unavailable MARTY GUTHRIE Primary Care Unavailable KONTAK, GISELLE Primary Care Unavailable NIEVES BORJA Attending Unavailable Helio Hendricks Attending Unavailable Helio Hendricks Referring Unavailable Kontak, Harpreet Primary Care Unavailable Kontak, Harpreet Primary Care Unavailable Isabel Ayman Referring Unavailable Daniel Hall Attending Unavailable Elsy Perdomo Admitting Unavailable Elsy Perdomo Consulting Unavailable Kevin Robles Attending Unavailable SAMUELS, DIMITRY Primary Care Unavailable Juana, Jayaprakas Consulting Unavailable Isabel Ayman Consulting Unavailable Provider, Ed Physician Attending Unavailab cesar Kirantak, Harpreet Primary Care Unavailable Brendan Mclain Attending Unavailable SAMUELS, DIMITRY Referring Unavailable Aleksandra Dunlap Attending Unavailable SAMUELS, DIMITRY Primary Care Unavailable Kevin Caballero Admitting Unavailable Kevin Caballero Consulting Unavailable Amairani Choudhary Attending Unavailable SAMUELS, DIMITRY Primary Care Unavailable Daniel Hall Consulting Unavailable Mike Malagon Consulting Unavailable Sveta Macias Consulting Unavailable Sveta Macias Attending Unavailable Mike Malagon Attending Unavailable Goldy Warren Referring Unavailable Elsy Perdomo Admitting Unavailable Kevin Robles Attending Unavailable Price Nolasco Consulting Unavailable SAMUELS, DIMITRY Primary Care Unavailable Fabricio Manzano Consulting Unavailable Charan Crowell Consulting Unavailable Gato Givens Consulting Unavailable Kevin Delatorre Consulting Unavailable Aden Saldivar Consulting Unavailable Kp Gong Consulting Unavailable Tessa Nava Consulting UnavailCruzito Castillo Consulting Unavailable Clayton Baig Consulting Unavailable Shane Pizano Consulting Unavailable Lorna Salvador Consulting Unavailable Candace Cardoso Consulting Unavailable Darcie Sadler Consulting Unavailable Jose Carlos Boyle Consulting Unavailable Jamal Mcpherson Consulting Unavailable Marshal Mason Consulting Unavailable Jose James Consulting Unavailable Guillermo Ramirez Consulting Unavailable Irma Contreras Consulting Unavailable Giovanni Jimenez Consulting Unavailable Chapin Longo Consulting Unavailable Jesus Barrientos Consulting Unavailable Elsy Perdomo Consulting Unavailable Kevin Robles Consulting Unavailable Brendan Mclain Attending Unavailable Daniel Hall Consulting Unavailable Izabel Arias Consulting Unavailable Kevin Robles Referring Unavailable Gato Givens Attending Unavailable Goldy Warren Attending Unavailable Goldy Warren Consulting Unavailable lAeksandra Dunlap Attending Unavailable Kevin Caballero Consulting Unavailable Kevin Caballero Admitting Unavailable Goldy Warren Attending Unavailable DIMITRY SAMUELS Primary Care Unavailable Daniel Hall Consulting Unavailable Mike Malagon Consulting Unavailable Sveta Macias Consulting Unavailable Elsy Perdomo Attending Unavailable Kevin Caballero Attending Unavailable Reji Bennett Attending Unavailable DIMITRY SAMUELS [facility] Unavailable Reji Bennett Referring Unavailable Medications Current Medications Medication Drug Class(es) Dates Sig (Normalized) Sig (Original) acetaminophen 325 mg / HYDROcodone bitartrate 5 mg oral tablet (8 sources) Opioid Agonist Start: 09-03-2021 End: 01-23-2025 take 1 tablet by mouth every six hours as needed for pain acetaminophen-hyd rocodone 325 mg-5 mg oral tablet Dose = 1 tab(s), Oral, q6h, PRN for pain, tab(s), 0 Refill(s) Start Date: 09/03/21 Status: Ordered [id number] 200 actuat albuterol 0.09 mg/actuat metered dose inhaler (20 sources) beta2-Adrenergic Agonist Start: 11-18-2024 Albuterol Sulfate 90 mcg/actuation HFA aerosol inhaler Active 2 NMA INHALATION EVERY 6 HOURS as needed for dyspnea November 18, 2024 12:00am Start: 10-14-2022 albuterol 108 (90 Base) MCG/ACT inhaler 4 puff Start: 08-05-2022 albuterol 108 (90 Base) MCG/ACT inhaler Indications: Chronic obstructive pulmonary disease, unspecified COPD type (HCC) USE 2 INHALATIONS BY MOUTH 4 TIMES DAILY IF NEEDED 34 g 2 10/02/2023 Active Start: 08-05-2022 End: 10-02-2023 take 2 puff(s) by mouth four times daily albuterol 108 (90 Base) MCG/ACT inhaler Indications: Chronic obstructive pulmonary disease, unspecified COPD type (HCC) inhale 2 puffs by mouth and INTO THE LUNGS four times a day if needed 18 g 11 08/05/2022 10/02/2023 Discontinued Start: 09-03-2021 take 1 dose by inhal ation four times daily as needed albuterol 0.63 mg/3 mL (0.021%) inhalation solution Dose : 0.63 mg = 3 mL, Inhalation, QID, PRN Shortness of breath or wheezing, 0 Refill(s) Start Date: 09/03/21 Status: Ordered Start: 09-03-2021 take 1 dose by inhal ation four times daily as needed albuterol 0.63 mg/3 mL (0.021%) inhalation solution Dose : 0.63 mg = 3 mL, Inhalation, QID, PRN Wheezing, 0 Refill(s) Start Date: 09/03/21 Status: Ordered Start: 02-25-2020 albuterol (PRO VENTIL) (2.5 MG/3ML) 0.083% nebulizer solution Indications: Chronic obstructive pulmonary disease, unspecified COPD type (HCC) Take 3 mLs by nebulization every 4 hours as needed for Wheezing or Shortness of Breath 120 each 3 02/25/2020 Active Start: 06-07-2017 albuterol (PRO VENTIL) (2.5 MG/3ML) 0.083% nebulizer solution Take 3 mLs by nebulization every 4 hours as needed for Wheezing or Shortness of Breath 120 each 3 06/07/2017 Active atenolol 25 mg oral tablet (20 sources) beta-Adrenergic Ria Start: 06-26-2021 End: 10-25-2025 atenolol (Tenormin) 25 MG tablet 05/25/2022 Active take 1 tablet by mouth once mansoor y atenolol (TENORMIN) 50 mg tablet Take 50 mg by mouth once daily. 0 Active Comment on above: Take 50 mg by mouth once daily. Take 1 tablet by key th once daily. baclofen 5 mg oral tablet (20 sources) gamma-Aminobutyric Acid-ergic Agonist Start: 11-25-2022 take 1 tablet by mouth twice daily baclofen (LIORESAL) 5 mg tablet Take 5 mg by mouth twice daily. 11/25/2022 Active take 5 mg by mouth three times d aily baclofen (Lioresal) 10 MG tablet Take 5 mg by mouth 3 times daily. Active Comment on above: Take 5 mg by mouth t wice daily. betamethasone 1 mg/ml topical cream (20 sources) Corticosteroid Start: End: betamethasone valerate 0.1 % cream Apply to affected area once daily. Apply to arms 45 g 3 07/05/2022 Active Comment on above: APPLY TO SKIN NEE DED Apply to affected ar ea once daily. Apply to arms Breztri Aerosphere inhalation aerosol (1 source) Start: take 1 dose by mouth twice daily Breztri Aerosphere inhalation aerosol Dose = 2 puff(s), Inhalation, BID, rinse mouth and throat after use, # 5.9 gram(s), 0 Refill(s) Start Date: 09/03/21 Status: Ordered Budesonide / formoterol (20 sources) Corticosteroid, beta2-Adrenergic Agonist Start: take 2 puff(s) by inhalation twice daily budesonide-formotero l (SYMBICORT) 160-4.5 mcg/actuation inhaler Inhale 2 Puffs as instructed two times a day. 1 Each 04/29/2024 Active Start: 03-28-2024 End: 04-29-2024 take 2 puff(s) by inhalation twice daily budesonide-formoterol (SYMBICORT) 160-4.5 mcg/actuation inhaler Inhale 2 Puffs as instructed two times a day. 1 Each 03/28/2024 04/29/2024 Discontinued Start: 03-28-2024 take 2 puff(s) by in halation twice daily budesonide-formoterol (SYMBICORT) 160-4.5 mcg/actuation inhaler Inhale 2 Puffs as instructed two times a day. 1 Each 11 03/28/2024 Active Start: 06-16-2023 End: 03-27-2024 take 2 puff(s) by inhalation twice daily budesonide-formoterol (SYMBICORT) 160-4.5 mcg/actuation inhaler Inhale 2 Puffs as instructed two times a day. 1 Each 06/16/2023 03/27/2024 Discontinued Start: 06-16-2023 take 2 puff(s) by in halation twice daily budesonide-formoterol (SYMBICORT) 160-4.5 mcg/actuation inhaler Inhale 2 Puffs as instructed two times a day. 1 Each 06/16/2023 Active Start: 08-05-2022 End: 08-05-2023 take 2 puff(s) by inhalation in the morning budesonide-formoterol (Symbicort) 160-4.5 MCG/ACT inhaler Indications: Chronic obstructive pulmonary disease, unspecified COPD type (HCC) Inhale 2 puffs in the morning and 2 puffs in the evening. Rinse mouth with water after use to reduce aftertaste and incidence of candidiasis. Do not swallow.. 3 each 3 08/05/2022 Active Start: 08-05-2022 End: 06-16-2023 SYMBICORT 160-4.5 mcg/actuat ion inhaler take 2 puff(s) by in halation twice daily budesonide-formoterol (Symbicort) 80-4.5 MCG/ACT inhaler Inhale 2 puffs 2 times daily. Active Comment on above: Inhale 2 Puffs as in structed two times a day. cholecalciferol 0.05 mg oral capsule (10 sources) Vitamin D Start: 11-18-19 take 1 capsule by mouth once daily Cholecalciferol (Vitamin D3) 50 mcg (2,000 unit) capsule Active 50 ug PO DAILY November 17, 2024 12:00am Start: 11-06-2021 cholecalcifero l 25 mcg (1000 intl units) oral tablet Dose : 1,000 unit(s) = 1 tab(s), Oral, Daily, 0 Refill(s) Start Date: 11/06/21 Status: Ordered take 1 capsule by [facility] once daily cholecalciferol (Vitamin D-3) 50 MCG (1999) capsule Take 2,000 Units by mouth daily. Active citalopram 20 mg oral tablet (9 sources) Serotonin Reuptake Inhibitor Start: 05-02-2017 take 1 tablet by mouth once daily citalopram (CELEXA) 20 MG tablet Take 20 mg by mouth daily 0 05/02/2017 Active 12 hr dextromethorphan hydrobromide 30 mg / guaiFENesin 600 mg extended release oral tablet (2 sources) Uncompetitive H-xnxots-O-aspartat e Receptor Antagonist, Sigma-1 Agonist Start: 07-11-2022 End: 07-18-2022 take 1 tablet by mouth twice daily dextromethorphan-g uaiFENesin (MUCINEX DM) 30-600 mg per tablet Indications: Viral URI with cough Take 1 tablet by mouth twice daily for 7 days. 14 tablet 0 07/11/2022 07/18/2022 Active Comment on above: Take 1 tablet by key twice daily for 7 days. diazePAM 10 mg oral tablet (4 sources) Benzodiazepine Start: 07-10-2024 End: 08-09-2024 diazePAM (VALIUM) 10 mg tablet Indications: Pancreatic cyst Take one tablet one hour prior to MRI 1 tablet 07/10/2024 08/09/2024 Active empagliflozin 10 mg oral tablet (3 sources) Sodium-Glucose Cotransporter 2 Inhibitor take 10 mg by mouth once daily empagliflozin (Jardiance) 10 MG Take 10 mg by mouth daily. Active famotidine 20 mg oral tablet (20 sources) Histamine-2 Receptor Antagonist Start: 09-03-2021 famotidine 40 mg oral tablet Dose : 40 mg = 1 tab(s), Oral, Daily, 0 Refill(s) Start Date: 09/03/21 Status: Ordered Start: 05-02-2017 End: 06-18-2024 take 1 tablet by mouth in the morning famotidine (Pepcid) 20 MG tablet Take 20 mg by mouth in the morning. 05/02/2017 Active Comment on above: Take 20 mg by mouth once daily. Take 1 tablet by key th once daily. TAKE 1 TABLET BY KEY TH ONCE DAILY folic acid 1 mg oral tablet (20 sources) Start: 06-26-2021 take 1 tablet by mouth once daily Folic Acid 1 mg tablet Active 1 mg PO DAILY June 26, 2021 12:00am End: 07-05-2022 folic acid 800 mcg tablet Ta ke 400 mcg by mouth once daily. 0 07/05/2022 Discontinued take 800 mg by mouth once daily FOLIC ACID PO Take 800 mg by mouth daily 0 Active Comment on above: Take 400 mcg by mout h once daily. hydrOXYzine hydrochloride 25 mg oral tablet (20 sources) Antihistamine Start: 09-28-19 24 take 1 tablet by mouth every eight hours as needed hydrOXYzine HCl (ATARAX) 25 mg tablet Take 1 tablet by mouth three times a day as needed. 91 tablet 1 09/28/2023 Active Comment on above: Take 1 tablet by key th three times a day as needed. ipratropium bromide 0.2 mg/ml inhalation solution (20 sources) Anticholinergic Start: 08-05-20 ipratropium (Atrovent) 0.02 % nebulizer solution Indications: Chronic obstructive pulmonary disease, unspecified COPD type (HCC) Take 2.5 mL (0.5 mg) by nebulization every 6 hours as needed for wheezing or shortness of breath. 75 mL 11 08/05/2022 Active Start: 06-26-2021 End: 12-24-2024 take 1 mL by inhalation once daily Ipratropium [place] 0.02 % solution Discontinued 2 mL INHALATION DAILY June 26, 2021 12:00am December 24, 2024 6:29pm Start: 06-02-2021 ipratropium (A TROVENT) 0.02 % nebulizer solution Indications: Moderate COPD (chronic obstructive pulmonary disease) (HCC) Take 2.5 mLs by nebulization every 6 hours as needed for Wheezing 360 mL 3 06/02/2021 Active levalbuterol 0.21 mg/ml inhalation solution (20 sources) beta2-Adrenergic Agonist Start: 08-05-2022 End: 08-05-2023 levalbuterol (Xopenex) 0.63 MG/3ML nebulizer solution Indications: Chronic obstructive pulmonary disease, unspecified COPD type (HCC) Take 1 ampule by nebulization as needed for wheezing or shortness of breath. 72 mL 5 08/05/2022 Active levoFLOXacin 500 mg oral tablet (2 sources) Quinolone Antimicrobial Start: 09-12-2024 End: 09-19-2024 take 1 tablet by mouth once daily levoFLOXacin (LEVAQUIN) 500 mg tablet Take 1 tablet by mouth once daily for 7 days. 7 tablet 09/12/2024 09/19/2024 Active lidocaine 0.05 mg/mg medicated patch (20 sources) Antiarrhythmic, Amide Local Anesthetic Start: 11-24-2024 End: 01-01-2025 Lidocaine 5 % Adhesive Patch,Medicated Active 2 NMA TOPICAL DAILY 60 January 01, 2025 12:00am Apply to area of low back pain-change daily Please contact the information source for Protocol details. Start: 12-27-2023 lidocaine (LID ODERM) 5 % 12/27/2023 Active oxyCODONE hydrochloride 5 mg oral tablet (9 sources) Opioid Agonist Start: 01-01-2025 take 1 tablet by mouth every six hours as needed for pain Oxycodone 5 mg Tablet Active 5 mg PO EVERY 6 HOURS NEEDED as needed for Pain Score 4-5 Or Pre Pt/Ot 35 7 January 01, 2025 1-2 every 6 hours as needed for pain Start: 11-24-2024 End: 12-24-2024 take 1 tablet by mouth every six hours as needed for pain Oxycodone 5 mg Tablet Discontinued 5 mg PO EVERY 6 HOURS NEEDED as needed for Pain Score 6-10 12 3 November 24, 2024 December 24, 2024 6:33pm Start: 11-06-2021 End: 11-13-2021 take 1-2 tablets by mouth every four hours as needed for pain oxyCODONE 5 mg oral tablet ( IMMEDIATE release ) See Instructions, PRN as needed for pain, 1-2 tab(s) Oral q4h, # 60 tab(s), 0 Refill(s), 11/13/21 10:34:00 EDT, [facility]acy: [facility], Status post total shoulder arthroplasty, 155, cm, 11/05/21 17:08:00 EDT, Height, 84.4, kg, 11/05/21 17:08... Start Date: 11/06/21 Stop Date: 11/13/21 Status: Ordered Risankizumab-Rzaa (4 sources) Start: 12-24-2024 Risankizumab-R zaa (Skyrizi) 150 mg/mL pen injector Active 150 mg SC Q90D December 24, 2024 12:00am Risankizumab-rzaa (SKYRIZI SC) (3 sources) Risankizumab-rza a (SKYRIZI SC) Inject under the skin. Active risankizumab-rzaa (SKYRIZI) 150 mg/mL injection (20 sources) inject 150 mg by subcutaneous injection every three months risankizumab-rzaa (SKYRIZI) 150 mg/mL injection Inject 150 mg subcutaneously every 3 months. Active inject 150 mg by sub cutaneous injection every three months risankizumab-rzaa (SKYRIZI) 150 mg/mL injection Inject 150 mg subcutaneously every 3 months. 0 Active Comment on above: Inject 150 mg subcut aneously every 3 months. rivaroxaban 20 mg oral tablet (20 sources) Factor Xa Inhibitor Start: 1 End: 4 take 1 tablet by mouth once daily Rivaroxaban (Xarelto) 20 mg tablet Active 20 mg PO DAILY June 26, 2021 12:00am Start: 09-18-2018 End: 07-05-2022 take 1 tablet by mouth once daily XARELTO 15 mg tablet Take 15 mg by mouth once daily. 0 09/18/2018 07/05/2022 Discontinued (Other) Comment on above: Take 20 mg by mouth daily with dinner. Take 15 mg by mouth once daily. Take 1 tablet by key th daily with dinner. sennosides, [facility] (1 source) Start: 11-07-19 Senokot S Dose = 2 tab(s), Oral, BID, Take until first bowel movement, then as needed, 0 Refill(s) Start Date: 11/06/21 Status: Ordered tiotropium 0.018 mg inhalation powder (20 sources) Anticholinergic Start: 11-18-19 23 End: 05-08-20 24 take 1 capsule by inhalation once daily in the morning tiotropium (SPIRIVA WITH HANDIHALER) 18 mcg inhalation capsule inhale THE CONTENTS OF ONE CAPSULE IN THE HANDIHALER every morning 30 capsule 5 05/08/2024 Active Start: 08-05-2022 End: 08-05-2023 take 1 capsule by inhalation in the morning tiotropium (Spiriva) 18 MCG inhalation capsule Indications: Chronic obstructive pulmonary disease, unspecified COPD type (HCC) Place 1 capsule (18 mcg) into inhaler and inhale in the morning. 30 capsule 11 08/05/2022 Active Comment on above: inhale THE CONTENTS OF ONE CAPSULE IN THE HANDIHALER every morning Tiotropium [place] (Spiriva With Handihaler) 18 mcg capsule, w/inhalation device (5 sources) Start: take 1 capsule by inhalation once daily as needed Tiotropium [place] (Spiriva With Handihaler) 18 mcg capsule, w/inhalation device Active 1 NMA INHALATION DAILY as needed for shortness of breath November 18, 2024 12:00am Start: 11-18-2024 Tiotropium [place] m[place] (Spiriva With Handihaler) 18 mcg capsule, w/inhalation device Active 1 NMA INHALATION as needed for shortness of breath November 18, 2024 12:00am 30 actuat umeclidinium 0.0625 mg/actuat / vilanterol 0.025 mg/actuat dry powder inhaler (6 sources) Anticholinergic, beta2-Adrenergic Agonist Start: 02-25-2020 take 1 puff(s) by inhalation once daily umeclidinium-vilanterol (ANORO ELLIPTA) 62.5-25 MCG/INH AEPB inhaler Indications: Chronic obstructive pulmonary disease, unspecified COPD type (HCC) Inhale 1 puff into the lungs daily 1 each 02/25/2020 Active Start: 02-28-2018 take 1 puff(s) by inhalation once daily umeclidinium-vilanterol (ANORO ELLIPTA) 62.5-25 MCG/INH AEPB inhaler Indications: Chronic obstructive pulmonary disease, unspecified COPD type (HCC) Inhale 1 puff into the lungs daily 1 each 02/28/2018 Active Vitamin D3 (1 source) Start: 09-03-2021 Vitamin D3 Dos e : 1,000 unit(s) = 1 tab(s), Oral, Daily, 0 Refill(s) Start Date: 09/03/21 Status: Ordered Completed/Discontinued Medications Medication Drug Class(es) Dates Sig (Normalized) Sig (Original) acetaminophen 325 mg oral tablet (7 sources) Start: 11-24-2024 End: 12-24-2024 Acetaminophen 325 mg Tablet Discontinued 650 mg PO EVERY 6 HOURS NEEDED as needed for Pain 1-10 Or Fever >100.7 0 November 24, 2024 12:00am December 24, 2024 6:27pm Start: 11-06-2021 End: 11-20-2021 take 1 tablet by mouth once daily acetaminophen 500 mg oral tablet Dose : 500 mg = 1 tab(s), Oral, TID, PRN as needed for pain, not to exceed 3000 mg/day, # 100 tab(s), 0 Refill(s), 11/20/21 10:33:00 EDT, Pharmacy: [facility] [address], 155, cm, 11/05/21 17:08:00 EDT, Height, kg, 11/05/21 17:08:00 EDT, Dosing Weight Start Date: 11/06/21 Stop Date: 11/20/21 Status: Ordered Start: 11-03-2021 acetaminophen Dose : 650 mg = 2 tab(s), Oral, q4h, PRN Pain, scale 1-3, 0 Refill(s) Start Date: 11/03/21 Status: Ordered acetaminophen 325 mg / oxyCODONE hydrochloride 5 mg oral tablet (20 sources) Opioid Agonist Start: 12-24-2024 End: 01-01-2025 Oxycodone-Acetaminophen 5-32 5 mg tablet Discontinued 1 {tbl} PO THREE TIMES A DAY as needed for pain December 24, 2024 12:00am January 01, 2025 1:23pm Start: 11-18-2024 End: 11-24-2024 Oxycodone-Acetaminophen 5-32 5 mg tablet Discontinued 1 {tbl} PO 3 TIMES DAILY NEEDED as needed for pain November 18, 2024 12:00am November 24, 2024 8:45am Start: 06-05-2024 End: 06-12-2024 take 1 tablet by mouth every four hours as needed for pain oxyCODONE-acetaminophen (PERCOCET) 5-325 mg tablet Indications: Closed fracture of multiple ribs of left side with routine healing, subsequent encounter Take 1 tablet by mouth every 4 hours as needed for pain for up to 7 days. 28 tablet 06/05/2024 06/12/2024 Active Start: 06-26-2021 take 1 tablet by key th every six hours as needed Oxycodone-Acetaminophen Active 1 TABLET PO EVERY 6 HOURS NEEDED 07 01June 26, 2021 Start: 08-16-2018 End: 07-05-2022 take 1 tablet by mouth every eight hours as needed oxyCODONE-acetaminophen (PERCOCET 10) 10-325 mg tablet Take 1 tablet by mouth three times daily as needed. 0 08/16/2018 07/05/2022 Discontinued Start: 10-18-2016 End: 09-16-2023 Oxycodone-Acetaminophen 1 TA BLET tablet Discontinued 1 {tbl} PO EVERY 6 HOURS NEEDED as needed for pain 07 01June 26, 2021 September 16, 2023 12:30pm Comment on above: Take 1 tablet by key th three times daily as needed. amitriptyline hydrochloride 25 mg oral tablet (14 sources) Tricyclic Antidepressant Start: 08-26-19 End: 12-25-19 take 1 tablet by mouth at bedtime Amitriptyline 25 mg tablet Discontinued 25 mg PO AT BEDTIME November 17, 2024 12:00am December 24, 2024 6:27pm apremilast 30 mg oral tablet (20 sources) End: 01-24-20 apremilast (Otezla) 30 MG tablet Take by mouth. Do not crush, chew, or split tablets. 01/23/2025 Discontinued (Therapy completed) End: 05-22-2023 apremilast (OTEZLA STARTER) 10 mg (4)-20 mg [...] twice daily on Day 6 and thereafter 0 05/22/2023 Discontinued (Discontinued by Patient) apremilast (OTEZ LA STARTER) 10 mg (4)-20 mg (4)-30 mg(19) [...] twice daily on Day 6 and thereafter 0 Active Comment on above: Take by mouth as dir ected. Take 10 mg by mouth in the [...] twice daily on Day 6 and thereafter azithromycin 500 mg oral tablet (6 sources) Macrolide Antimicrobial Start: End: take 1 tablet by mouth once daily Azithromycin (Zithromax Tri-Amandeep) 500 mg tablet Discontinued 500 mg PO DAILY 3 3 September 16, 2023 1:00am September 18, 2023 1:00am September 19, 2023 1:05am 120 actuat budesonide 0.16 mg/actuat / formoterol fumarate 0.0048 mg/actuat / glycopyrrolate 0.009 mg/actuat metered dose inhaler (1 source) Corticosteroid, beta2-Adrenergic Agonist End: take 2 puff(s) by inhalation twice daily budesonide-glycopyr -formoterol (BREZTRI AEROSPHERE) 160-9-4.8 mcg/actuation HFA aerosol inhaler Inhale 2 Puffs as instructed two times a day. 0 06/16/2023 Discontinued (Discontinued by Patient) Comment on above: Inhale 2 Puffs as in structed two times a day. carisoprodol 350 mg oral tablet (20 sources) Muscle Relaxant Start: End: take 1 tablet by mouth once daily as needed carisoprodol (Soma) 350 MG tablet Take 350 mg by mouth Nightly as needed. 06/04/2024 01/23/2025 Discontinued (Therapy completed) Start: 06-04-2024 End: 07-04-2024 take 1 tablet by mouth every 30 days at bedtime as needed carisoprodol (SOMA) 350 mg tablet Indications: Chronic midline low back pain without sciatica Take 1 tablet by mouth at bedtime as needed for up to 30 days. 30 tablet 06/04/2024 07/04/2024 Active Start: 04-05-2024 End: 05-05-2024 take 1 tablet by mouth every 30 days at bedtime as needed carisoprodol (SOMA) 350 mg tablet Indications: Chronic midline low back pain without sciatica Take 1 tablet by mouth at bedtime as needed for up to 30 days. 30 tablet 04/05/2024 05/05/2024 Active Start: 11-08-2023 End: 12-08-2023 take 1 tablet by mouth every 30 days at bedtime as needed carisoprodol (SOMA) 350 mg tablet Indications: Chronic midline low back pain without sciatica Take 1 tablet by mouth at bedtime as needed for up to 30 days. 30 tablet 0 11/08/2023 12/08/2023 Active Start: 10-26-2022 End: 11-25-2022 take 1 tablet by mouth twice daily carisoprodol (SOMA) 350 mg tablet Indications: Chronic midline low back pain without sciatica take 1 tablet by mouth twice a day if needed for up to 30 DAYS 30 tablet 0 10/26/2022 11/25/2022 Active Start: 06-26-2021 End: 09-16-2023 take 1 tablet by mouth at bedtime Carisoprodol (Soma) 350 mg tablet Discontinued 350 mg PO AT BEDTIME June 26, 2021 12:00am September 16, 2023 12:30pm Start: 06-26-2021 End: 10-08-2023 take 1 tablet by mouth every 30 days at bedtime as needed carisoprodol (SOMA) 350 mg tablet Indications: Chronic midline low back pain without sciatica Take 1 tablet by mouth at bedtime as needed for up to 30 days. 30 tablet 0 09/08/2023 10/08/2023 Active Start: 08-17-2017 End: 09-08-2022 take 1 tablet by mouth twice daily as needed carisoprodol (SOMA) 350 mg tablet Indications: Chronic midline low back pain without sciatica Take 1 tablet by mouth twice daily as needed for up to 30 days. 30 tablet 0 08/09/2022 09/08/2022 Active Comment on above: Take 350 mg by mouth twice daily as needed. Take 1 tablet by key at bedtime as needed for up to 30 days. Take 1 tablet by key twice daily as needed for up to 30 days. take 1 tablet by key twice a day if needed for up to 30 DAYS cyclobenzaprine hydrochloride 10 mg oral tablet (2 sources) Muscle Relaxant Start: 06-07-20 End: 06-07-20 take 5 mg by mouth once 5 mg, Oral, Once, On Mon06/07/24 at 1840, For 1 dose diclofenac sodium 0.01 mg/mg topical gel (2 sources) Nonsteroidal Anti-inflammatory Drug Start: 06-12-20 End: 07-05-20 diclofenac sodium (VOLTAREN) 1 % topical gel APPLY TO SHOULDER EVERY 6 HOURS NEEDED 06/12/2018 07/05/2022 Discontinued Comment on above: APPLY TO SHOULDER EV BRYANT 6 HOURS NEEDED docusate sodium 50 mg / sennosides, alf 8.6 mg oral tablet (5 sources) Start: 11-25-19 End: 12-25-19 Sennosides-Docusate Sodium (Stimulant Laxative Plus) 8.6-50 mg Tablet Discontinued 2 {tbl} PO TWICE DAILY NEEDED as needed for Constipation 0 November 24, 2024 12:00am December 24, 2024 6:31pm enteric contrast (will be provided with radiology test) (2 sources) Start: 05-22-20 End: 05-23-20 enteric contrast (will be provided with radiology test) Indications: BRBPR (bright red blood per rectum) , Chronic constipation , Abnormal weight loss , Abdominal distension (gaseous) , Other constipation , Nausea For CT ABD/PEL W IVCON Routine order Administer, As Directed One Time Only, via Oral, Rectal, both Oral and Rectal, Enteric Tube, Stoma or Indwelling Catheter, Enteric Contrast as designated per enteric contrast guidelines 1 Each 0 05/22/2023 05/23/2023 Start: 05-22-2023 End: 05-23-2023 enteric contrast (will be pr ovided with radiology test) Indications: BRBPR (bright red blood per rectum) , Chronic constipation , Abnormal weight loss , Abdominal distension (gaseous) , Other constipation , Nausea For CT ABD/PEL W IVCON Routine order Administer, As Directed One Time Only, via Oral, Rectal, both Oral and Rectal, Enteric Tube, Stoma or Indwelling Catheter, Enteric Contrast as designated per enteric contrast guidelines 1 Each 0 05/22/2023 05/23/2023 Active Comment on above: For CT ABD/PEL W IVC ON Routine order Administer, As Directed One Time Only, via Oral, Rectal, both Oral and Rectal, Enteric Tube, Stoma or Indwelling Catheter, Enteric Contrast as designated per enteric contrast guidelines fluticasone propionate 0.05 mg/actuat metered dose nasal spray (20 sources) Corticosteroid Start: 2 End: 3 take 1 spray(s) nasal route twice daily fluticasone (FLONASE ALLERGY RELIEF) 50 mcg/actuation nasal spray Indications: Viral URI with cough Use 1 Almond in each nostril twice daily. 1 Each 0 07/11/2022 06/16/2023 Discontinued Comment on above: Use 1 Almond in each nostril twice daily. Food Supplemt, Lactose-Reduced (Ensure Plus High Protein) 0.08 gram-1.5 kcal/mL Liquid (5 sources) Start: 5 End: Food Supplemt, Lactose-Reduced (Ensure Plus High Protein) 0.08 gram-1.5 kcal/mL Liquid Discontinued 120 mL PO 4 TIMES DAILY 0 November 24, 2024 12:00am December 24, 2024 6:28pm Start: 11-24-2024 Food Supplemt, Lactose-Reduced (Ensure Plus High Protein) 0.08 gram-1.5 kcal/mL Liquid Active 120 mL PO 4 TIMES DAILY 0 November 24, 2024 12:00am furosemide 20 mg oral tablet (6 sources) Loop Diuretic Start: 11-17-2024 End: 01-01-2025 take 1 tablet by mouth once daily Furosemide 20 mg tablet Discontinued 20 mg PO DAILY November 17, 2024 12:00am January 01, 2025 1:22pm gabapentin 100 mg oral capsule (20 sources) Anti-epileptic Agent Start: 12-19-2023 End: 01-23-2025 gabapentin (Neurontin) 100 MG capsule Take 100 mg by mouth in the morning and 100 mg at noon and 100 mg in the evening. 12/19/2023 01/23/2025 Discontinued (Therapy completed) 12 hr guaiFENesin 1200 mg extended release oral tablet (18 sources) Start: 11-24-2024 End: 12-24-2024 take 1 tablet by mouth twice daily, then take 1 tablet by mouth every twelve hours Guaifenesin (Mucus Relief Er) 1,200 mg Tablet Extended Release 12hr Discontinued 1200 mg PO TWICE A DAY 0 November 24, 2024 12:00am December 24, 2024 6:29pm Start: 10-20-2022 End: 10-20-2023 take 2 tablets by mouth twice daily guaiFENesin (Mucinex) 600 MG 12 hr tablet Indications: Chronic obstructive pulmonary disease, unspecified COPD type (HCC) Take 2 tablets (1,200 mg) by mouth 2 times daily. Do not crush, chew, or split. 120 tablet 11 10/20/2022 10/20/2023 Active hydroCHLOROthiazide 12.5 mg oral capsule (20 sources) Thiazide Diuretic Start: 09-13-2018 End: 01-23-2025 hydroCHLOROthiazide (Microzide) 12.5 MG capsule 05/25/2022 01/23/2025 Discontinued (Therapy completed) Start: 05-02-2017 End: 10-26-2022 take 1 tablet by mouth once daily hydrochlorothiazide (HYDRODIURIL) 25 MG tablet Take 25 mg by mouth daily 0 05/02/2017 Active Comment on above: Take 25 mg by mouth once daily. Take 12.5 mg by mout h once daily. Take 1 capsule by mo ut once daily. TAKE 1 CAPSULE BY MO UTH ONCE DAILY ibuprofen 600 mg oral tablet (1 source) Nonsteroidal Anti-inflammatory Drug Start: 07-23-2018 take 1 tablet by mouth every eight hours as needed ibuprofen (MOTRIN) 600 mg tablet Take 600 mg by mouth three times daily as needed. 11 07/23/2018 Active Comment on above: Take 600 mg by mouth three times daily as needed. iopamidol (ISOVUE-370) 76 % injection 75 mL (2 sources) Start: 02-09-2022 End: 02-09-2022 iopamidol (ISOVUE-370) 76 % injection 75 mL Start: 05-17-2021 End: 05-17-2021 iopamidol (ISOVUE-370) 76 % injection 75 mL iv contrast (will be provide d with radiology test) (4 sources) Start: 07-10-2024 End: 07-10-2024 iv contrast (will be provide d with radiology test) Indications: Pancreatic cyst MRI PANC/IRVING Inject, intravenously, once for 1 dose. No IV access, insert saline lock prior to the beginning of sedation, infusion, injection of imaging exam. Discontinue saline lock post exam. If Pt. has a central line or IVAD, may access for administration according to line specific nursing protocol. Once exam is complete flush line and de-access according to line specific nursing protocol in the MR contrast administration guidelines link. 1 Each 07/10/2024 07/10/2024 Discontinued Start: 05-22-2023 End: 05-23-2023 iv contrast (will be provide d with radiology test) Indications: BRBPR (bright red blood per rectum) , Chronic constipation , Abnormal weight loss , Abdominal distension (gaseous) , Other constipation , Nausea CT ABD/PEL -Inject, intravenously, once for 1 [...] in the CT contrast administration guidelines link. 1 Each 0 05/22/2023 05/23/2023 Start: 05-22-2023 End: 05-23-2023 iv contrast (will be provide d with radiology test) Indications: BRBPR (bright red blood per rectum) , Chronic constipation , Abnormal weight loss , Abdominal distension (gaseous) , Other constipation , Nausea CT ABD/PEL -Inject, intravenously, once for 1 [...] in the CT contrast administration guidelines link. 1 Each 0 05/22/2023 05/23/2023 Active Comment on above: CT ABD/PEL -Inject, intravenously, once for 1 [...] in the CT contrast administration guidelines link. 1 ml ketorolac tromethamine 30 mg/ml cartridge (2 sources) Nonsteroidal Anti-inflammatory Drug, Cyclooxygenase Inhibitor Start: End: inject 30 mg by intramuscular injection once 30 mg, IntraMUSCular, Once, On Mon06/07/24 at 1840, For 1 dose melatonin 3 mg oral tablet (5 sources) Start: End: take 1 tablet by mouth at bedtime as needed Melatonin 3 mg Tablet Discontinued 3 mg PO AT BEDTIME NEEDED as needed for Insomnia November 24, 2024 12:00am December 24, 2024 6:30pm methotrexate 2.5 mg oral tablet (20 sources) Folate Analog Metabolic Inhibitor Start: End: Methotrexate Sodium 2.5 mg tablet Discontinued June 26, 2021 12:00am September 16, 2023 12:31pm Start: 05-02-2017 Methotrexate S odium Active June 26, 2021 12:00am End: 07-05-2022 take 4 tablets by mouth once methotrexate 2.5 mg table t Take 10 mg by mouth every Monday. 0 07/05/2022 Discontinued Comment on above: Take 10 mg by mouth every Monday. nystatin [id number] unt/ml oral suspension (5 sources) Polyene Antifungal Start: 5 End: 5 take [id number] [IU] by mouth four times daily Nystatin 100,000 unit/mL Suspension Discontinued [id number] U PO 4 TIMES DAILY 200 November 24, 2024 12:00am December 24, 2024 6:30pm predniSONE 20 mg oral tablet (20 sources) Start: 4 End: take 1 tablet by mouth twice daily Prednisone 20 mg tablet Discontinued 20 mg PO TWICE A DAY October 23, 2023 1:00am November 17, 2024 3:47pm Start: 09-16-2023 End: 09-21-2023 take 1 tablet by mouth once daily Prednisone 50 mg tablet Discontinued 50 mg PO DAILY 5 September 16, 2023 1:00am September 20, 2023 1:00am September 21, 2023 1:05am Start: 06-26-2021 End: 09-16-2023 take 1 tablet by mouth once daily Prednisone 20 mg tablet Discontinued 20 mg PO DAILY June 26, 2021 12:00am September 16, 2023 12:12pm traMADol hydrochloride 50 mg oral tablet (20 sources) Opioid Agonist Start: 06-26-2021 End: 09-16-2023 take 1 tablet by mouth three times daily as needed for pain Tramadol 50 mg tablet Discontinued 50 mg PO THREE TIMES A DAY as needed for Pain June 26, 2021 12:00am September 16, 2023 12:30pm Start: 08-09-2018 End: 06-05-2024 take 1 tablet by mouth twice daily traMADol (ULTRAM) 50 mg tablet Take 50 mg by mouth twice daily. 0 08/09/2018 06/05/2024 Discontinued Comment on above: Take 50 mg by mouth twice daily. valACYclovir 1000 mg oral tablet (6 sources) Herpesvirus Nucleoside Analog DNA Polymerase Inhibitor, Herpes Simplex Virus Nucleoside Analog DNA Polymerase Inhibitor, Herpes Zoster Virus Nucleoside Analog DNA Polymerase Inhibitor Start: 10-23-2023 End: 11-17-2024 Valacyclovir 1 gram tablet Discontinued 1000 mg PO THREE TIMES A DAY October 23, 2023 1:00am November 17, 2024 3:48pm Problems Active Problems Problem Classification Problem Date Documented Da te Episodic/Chronic Acute and unspecified renal failure (11 sources) Acute renal failure syndrome; Translations: [Acute kidney failure, unspecified] Onset: 5 11-19-2024 Episodic Cardiac dysrhythmias (20 sources) Unspecified atrial fibrillation; Translations: [Chronic atrial fibrillation] Onset: 7 Chronic Chronic obstructive pulmonary disease and bronchiectasis (20 sources) Chronic obstructive lung disease; Translations: [Chronic obstructive pulmonary disease, unspecified] Onset: 8 08-24-2017 Chronic Conditions associated with dizziness or vertigo (1 source) Dizziness and giddiness; Translations: [Dizziness and giddiness] Episodic Diseases of white blood cells (7 sources) Leukocytosis; Translations: [Elevated white blood cell count, unspecified] Onset: 5 12-25-2024 Chronic E Codes: Adverse effects of medical drugs (1 source) Local anesthetic drug adverse reaction; Translations: [Adverse effect of local anesthetics, initial encounter] Onset: 2 Episodic Esophageal disorders (2 sources) Gastro-esophageal reflux disease without esophagitis; Translations: [Gastro-esophageal reflux disease without esophagitis] Onset: 7 Chronic Essential hypertension (20 sources) Essential (primary) hypertension; Translations: [Essential hypertension] Onset: 7 Chronic Fracture of upper limb (12 sources) Closed fracture of shaft of humerus; Translations: [Unspecified fracture of shaft of humerus, unspecified arm, initial encounter for closed fracture] Onset: 2 Episodic Gastrointestinal hemorrhage (1 source) Gastrointestinal hemorrhage; Translations: [Hemorrhage of anus and rectum] 05-22-2023 Episodic Genitourinary symptoms and ill-defined conditions (7 sources) Abnormal urinalysis; Translations: [Unspecified abnormal findings in urine] Onset: 5 12-25-2024 Episodic Heart valve disorders (2 sources) Heart murmur; Translations: [Cardiac murmur, unspecified] 11-28-2024 Episodic Joint disorders and dislocations; trauma-related (2 sources) Inferior dislocation of right humerus, subsequent encounter; Translations: [Inferior dislocation of right humerus, subsequent encounter] Onset: 3 Episodic Malaise and fatigue (17 sources) Asthenia; Translations: [Weakness] Onset: 5 12-03-2024 Episodic Nausea and vomiting (1 source) Nausea; Translations: [Nausea] 05-22-2023 Episodic Osteoarthritis (2 sources) Unspecified osteoarthritis, unspecified site; Translations: [Unspecified osteoarthritis, unspecified site] Onset: 7 Chronic Osteoporosis (5 sources) Osteoporosis; Translations: [Age-related osteoporosis without current pathological fracture] Onset: 5 Chronic Other aftercare (2 sources) Encounter for follow-up examination after completed treatment for conditions other than malignant neoplasm; Translations: [Encounter for follow-up examination after completed treatment for conditions other than malignant neoplasm] Onset: 3 Episodic Other aftercare (1 source) Patient encounter status; Translations: [Other long-term (current) drug therapy] 01-02-2024 Episodic Other aftercare (8 sources) Long-term current use of anticoagulant; 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] 12-24-2024 Episodic Other aftercare (1 source) [facility] (current) use of anticoagulants; 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] Onset: 5 Episodic Other bone disease and musculoskeletal deformities (6 sources) Osteopenia; Translations: [Other specified disorders of bone density and structure, unspecified site] 12-26-2024 Episodic Other bone disease and musculoskeletal deformities (1 source) Other specified disorders of bone density and structure, unspecified site; Translations: [Other specified disorders of bone density and structure, unspecified site] Onset: 5 Episodic Other connective tissue disease (1 source) Shoulder joint prosthesis present; Translations: [Presence of unspecified artificial shoulder joint] Onset: 2 Chronic Other connective tissue disease (1 source) History of right shoulder arthroplasty; Translations: [Presence of right artificial shoulder joint] Chronic Other connective tissue disease (2 sources) Presence of right artificial shoulder joint; Translations: [Presence of right artificial shoulder joint] Onset: 3 Chronic Other connective tissue disease (1 source) Falls; Translations: [Repeated falls] 01-17-2024 Episodic Other fractures (2 sources) Closed fracture of multiple left ribs; Translations: [Multiple fractures of ribs, left side, sequela] 05-29-2024 Episodic Other fractures (1 source) Closed fracture of multiple ribs; Translations: [Multiple fractures of ribs, left side, subsequent encounter for fracture with routine healing] 06-05-2024 Episodic Other fractures (8 sources) Compression fracture of vertebral column; Translations: [Wedge compression fracture of unspecified lumbar vertebra, initial encounter for closed fracture] 12-24-2024 Episodic Other fractures (6 sources) Compression fracture of L2; Translations: [Wedge compression fracture of second lumbar vertebra, initial encounter for closed fracture] 12-25-2024 Episodic Other fractures (6 sources) Fracture of third lumbar vertebra; Translations: [Wedge compression fracture of third lumbar vertebra, initial encounter for closed fracture] 12-26-2024 Episodic Other fractures (6 sources) Burst fracture of lumbar vertebra; Translations: [Stable burst fracture of unspecified lumbar vertebra, initial encounter for closed fracture] 12-27-2024 Episodic Other fractures (1 source) Wedge compression fracture of unspecified lumbar vertebra, initial encounter for closed fracture; Translations: [Wedge compression fracture of unspecified lumbar vertebra, initial encounter for closed fracture] Onset: 5 Episodic Other fractures (1 source) Wedge compression fracture of second lumbar vertebra, initial encounter for closed fracture; Translations: [Wedge compression fracture of second lumbar vertebra, initial encounter for closed fracture] Onset: 5 Episodic Other fractures (1 source) Wedge compression fracture of third lumbar vertebra, initial encounter for closed fracture; Translations: [Wedge compression fracture of third lumbar vertebra, initial encounter for closed fracture] Onset: 5 Episodic Other fractures (1 source) Wedge compression fracture of third lumbar vertebra, sequela; Translations: [Wedge compression fracture of third lumbar vertebra, sequela] Onset: 5 Episodic Other fractures (1 source) Stable burst fracture of unspecified lumbar vertebra, initial encounter for closed fracture; Translations: [Stable burst fracture of unspecified lumbar vertebra, initial encounter for closed fracture] Onset: 5 Episodic Other fractures (1 source) Stable burst fracture of unspecified lumbar vertebra, subsequent encounter for fracture with delayed healing; Translations: [Stable burst fracture of unspecified lumbar vertebra, subsequent encounter for fracture with delayed healing] Onset: 5 Episodic Other gastrointestinal disorders (7 sources) Dysphagia; Translations: [Dysphagia, unspecified] Episodic Other gastrointestinal disorders (1 source) Abdominal distension, gaseous; Translations: [Abdominal distension (gaseous)] 05-22-2023 Episodic Other gastrointestinal disorders (1 source) Constipation; Translations: [Other constipation] 05-22-2023 Episodic Other inflammatory condition of skin (2 sources) Psoriasis, unspecified; Translations: [Psoriasis, unspecified] Onset: 7 Chronic Other inflammatory condition of skin (20 sources) Psoriatic arthritis; 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, unspecified] Onset: 7 06-01-2017 Chronic Other inflammatory condition of skin (20 sources) Psoriasis; Translations: [Psoriasis, unspecified] Onset: 2 Chronic Other inflammatory condition of skin (1 source) Arthropathic psoriasis, unspecified; 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, unspecified] Onset: 5 Chronic Other inflammatory condition of skin (1 source) Psoriasis vulgaris; Translations: [Psoriasis vulgaris] Onset: 5 Chronic Other inflammatory condition of skin (1 source) Itching ; Translations: [Pruritus, unspecified] 09-28-2023 Episodic Other injuries and conditions due to external causes (3 sources) Choking; Translations: [Unspecified foreign body in larynx causing other injury, sequela] Episodic Other lower respiratory disease (2 sources) Pulmonary fibrosis, unspecified; Translations: [Pulmonary fibrosis, unspecified] Onset: 7 Chronic Other lower respiratory disease (20 sources) Fibrosis of lung; Translations: [Pulmonary fibrosis, unspecified] Onset: 7 06-01-2017 Chronic Other lower respiratory disease (20 sources) Interstitial lung disease; Translations: [Interstitial pulmonary disease, unspecified] Onset: 4 12-28-2023 Chronic Other lower respiratory disease (2 sources) Lung mass; Translations: [Lung nodule] 06-28-2017 Episodic Other lower respiratory disease (1 source) H/O: respiratory disease; Translations: [Personal history of other diseases of the respiratory system] 12-28-2023 Episodic Other nervous system disorders (3 sources) Other chronic pain; Translations: [Chronic left-sided thoracic back pain] Onset: 4 Chronic Other nervous system disorders (8 sources) Walking disability; Translations: [Difficulty in walking, not elsewhere classified] 12-24-2024 Chronic Other nervous system disorders (1 source) Difficulty in walking, not elsewhere classified; Translations: [Difficulty in walking, not elsewhere classified] Onset: 5 Chronic Other nervous system disorders (1 source) Abnormal gait; Translations: [Unspecified abnormalities of gait and mobility] 01-17-2024 Episodic Other nutritional; endocrine; and metabolic disorders (20 sources) Obese class I; Translations: [Obesity, unspecified] Onset: 4 01-17-2024 Chronic Other nutritional; endocrine; and metabolic disorders (2 sources) Abnormal weight loss; Translations: [Abnormal weight loss] 05-22-2023 Episodic Other nutritional; endocrine; and metabolic disorders (8 sources) Body mass index 25-29 - overweight; Translations: [Overweight] 12-24-2024 Episodic Other nutritional; endocrine; and metabolic disorders (1 source) Overweight; Translations: [Overweight] Onset: Episodic Other skin disorders (1 source) Skin irritation ; Translations: [Other skin changes] 01-17-2024 Episodic Other upper respiratory disease (1 source) Bleeding from nose; Translations: [Epistaxis, recurrent] Episodic Other upper respiratory infections (2 sources) Viral upper respiratory tract infection; Translations: [Acute upper respiratory infection, unspecified] Episodic Pancreatic disorders (not diabetes) (3 sources) Cyst of pancreas; Translations: [Cyst of pancreas] 07-20-2023 Episodic Pathological fracture (4 sources) H/O: fragility fracture; Translations: [Personal history of (healed) other pathological fracture] Onset: 5 01-23-2025 Episodic Residual codes; unclassified (20 sources) Obstructive sleep apnea syndrome; Translations: [Obstructive sleep apnea (adult) (pediatric)] Onset: 7 06-01-2017 Chronic Residual codes; unclassified (2 sources) Menopause present; Translations: [Asymptomatic menopausal state] Onset: 5 09-17-2024 Episodic Residual codes; unclassified (8 sources) Activity of daily living (ADL) alteration; Translations: [Other specified health status] 12-24-2024 Episodic Residual codes; unclassified (8 sources) Unable to perform personal care activity; Translations: [Other specified health status] 12-24-2024 Episodic Residual codes; unclassified (6 sources) H/O Spinal surgery; Translations: [Other specified postprocedural states] 12-31-2024 Episodic Residual codes; unclassified (2 sources) Postmenopausal state; Translations: [Asymptomatic menopausal state] 01-23-2025 Episodic Residual codes; unclassified (4 sources) At risk of osteoporotic fracture; Translations: [Other specified personal risk factors, not elsewhere classified] 01-23-2025 Episodic Residual codes; unclassified (1 source) Asymptomatic menopausal state; Translations: [Asymptomatic menopausal state] Onset: Episodic Residual codes; unclassified (2 sources) Other specified postprocedural states; Translations: [Other specified postprocedural states] Onset: Episodic Residual codes; unclassified (1 source) Other specified health status; Translations: [Other specified health status] Onset: 5 Episodic Screening or history of mental health and substance abuse (6 sources) Personal history of nicotine dependence; Translations: [Ex-cigarette smoker] Onset: 7 06-16-2023 Episodic Septicemia (except in labor) (14 sources) Septic shock; Translations: [Sepsis, unspecified organism] Onset: 5 11-17-2024 Episodic Shock (12 sources) Shock; Translations: [Shock, unspecified] Onset: 5 11-18-2024 Episodic Spondylosis; intervertebral disc disorders; other back problems (20 sources) Cervical spondylosis; Translations: [Spondylosis without myelopathy or radiculopathy, cervical region] Onset: 2 Chronic Spondylosis; intervertebral disc disorders; other back problems (20 sources) Chronic low back pain; Translations: [Chronic midline low back pain without sciatica] Onset: 2 Episodic Sprains and strains (1 source) Strain of muscle, fascia and tendon of lower back, initial encounter; Translations: [Strain of lumbar paraspinous muscle, initial encounter] Onset: 5 Episodic Substance-related disorders (1 source) Opioid dependence, uncomplicated; Translations: [Opioid type dependence, unspecified ([facility])] Onset: 4 Chronic Unclassified (2 sources) Sleep apnea, unspecified; Translations: [Sleep apnea, unspecified] Onset: 7 Unclassified (3 sources) In 2 weeks, call for an appointment Unclassified (1 source) Low back pain, unspecified; Translations: [Low back pain, unspecified] Onset: 5 Urinary tract infections (7 sources) Acute cystitis; Translations: [Acute cystitis with hematuria] Onset: 5 12-25-2024 Episodic Viral infection (6 sources) Herpes zoster; Translations: [Zoster without complications] 10-23-2023 Episodic Past or Other Problems Problem Classification Problem Date Documented Da te Episodic/Chronic Abdominal pain (3 sources) Epigastric pain; Translations: [Epigastric pain] Onset: 07-11-2024 07-10-2024 Episodic Blindness and vision defects (1 source) Unspecified subjective visual disturbances; Translations: [Unspecified subjective visual disturbances] Onset: 02-21-2024 Episodic Diabetes mellitus without complication (3 sources) Hyperglycemia; Translations: [Hyperglycemia, unspecified] Onset: 11-06-2023 Episodic Fluid and electrolyte disorders (3 sources) Hypokalemia; Translations: [Hypokalemia] Onset: 01-19-2024 Episodic Other aftercare (1 source) Other long-term (current) drug therapy; Translations: [Medication management] Onset: 01-08-2024 Episodic Other fractures (1 source) Multiple fractures of ribs, left side, sequela; Translations: [Closed fracture of multiple ribs of left side, sequela] Onset: 05-29-2024 Episodic Other gastrointestinal disorders (20 sources) Chronic constipation; Translations: [Other constipation] Onset: 08-07-2023 05-22-2023 Episodic Other gastrointestinal disorders (1 source) Other constipation; Translations: [Chronic constipation] Onset: 08-07-2023 Episodic Other lower respiratory disease (20 sources) Idiopathic pulmonary fibrosis; Translations: [Idiopathic pulmonary fibrosis] Onset: 01-17-2024 Resolved: 09-12-2024 01-17-2024 Chronic Other lower respiratory disease (4 sources) Solitary pulmonary nodule; Translations: [Shortness of breath] Onset: 06-06-2017 Episodic Other lower respiratory disease (20 sources) Nodule of lung; Translations: [Solitary pulmonary nodule] Onset: 06-28-2017 06-28-2017 Episodic Other lower respiratory disease (20 sources) Restrictive lung disease; Translations: [Other disorders of lung] Onset: 06-16-2023 06-16-2023 Episodic Other lower respiratory disease (20 sources) Multiple nodules of lung; Translations: [Other nonspecific abnormal finding of lung field] Onset: 06-16-2023 06-16-2023 Episodic Other lower respiratory disease (5 sources) Other nonspecific abnormal finding of lung field; Translations: [Other nonspecific abnormal finding of lung field] Onset: 06-16-2023 01-30-2024 Episodic Other lower respiratory disease (1 source) Other disorders of lung; Translations: [Other disorders of lung] Onset: 04-27-2024 Episodic Residual codes; unclassified (20 sources) Mild memory disturbance ; Translations: [Other amnesia] Onset: 01-17-2024 01-17-2024 Episodic Unclassified (20 sources) Abnormal findings on diagnostic imaging of other specified body structures; Translations: [Patient encounter status] Onset: 06-28-2017 Episodic Results Test Name Value Interpretation Reference Range Facility ALBUMIN, RANDOM URINE W/CREA TININEon 02-10-2025 ALBUMIN, URINE 6.7 mg/dL Normal See Note: [facility] Comment on above: Result Comment: Refe rence Range: Reference Range Not established Performed By: #### 2 13, 1759, 927, 6517, 1005, 06140, 21306, 8525 #### [facility] [address], [address] [place] [address] Estimating Manager: Christiano Rapp MD ALBUMIN/CREATININE RATIO, RANDOM URINE 51 mg/g creat High <30 [facility] Comment on above: Result Comment: The ADA defines abnormalities in albumin excretion as follows: Albuminuria Category Result (mg/g creatinine) Normal to Mildly increased <30 Moderately increased 30-299 Severely increased > OR = 300 The ADA recommends that at least two of three specimens collected within a 3-6 month period be abnormal before considering a patient to be within a diagnostic category. Performed By: #### 2 13, 1759, 927, 6517, 1005, 81077, 90803, 8525 #### [facility] [place] [address] Estimating Manager: Christiano Rapp MD Creatinine (U) [Mass/Vol] 131 mg/dL Normal 20-275 [facility] Comment on above: Performed By: #### 2 13, 1759, 927, 6517, 1005, 13460, 33347, 8525 #### [facility] [address], [address] [place] [address] Estimating Manager: Christiano Rapp MD BASIC METABOLIC PANELon 01-20 Calcium [Mass/Vol] 9.4 mg/dL Normal 8.6-10.4 [facility] Comment on above: Performed By: #### 2 13, 1759, 927, 6517, 1005, 80340, 42077, 8525 #### [facility] [place] [address] Estimating Manager: Christiano Rapp MD Chloride [Moles/Vol] 106 mmol/L Normal 98-110 [facility] Comment on above: Performed By: #### 2 13, 1759, 927, 6517, 1005, 40506, 72297, 8525 #### [facility] [address], [address] [place] [address] Estimating Manager: Christiano Rapp MD CO2 [Moles/Vol] 28 mmol/L Normal 20-32 [facility] Comment on above: Performed By: #### 2 13, 175, 927, 6517, 1005, 77863, 21835, 8525 #### [facility] [place] [address] Estimating Manager: Christiano Rapp MD Creatinine [Mass/Vol] 0.42 mg/dL Low 0.60-0.[address] [facility] Comment on above: Performed By: #### 2 13, 175, 92, 6517, 1005, 80991, 52036, 8525 #### [facility] [place] [address] Estimating Manager: Christiano Rapp MD GFR/1.73 sq M.predicted among non-blacks MDRD (S/P/Bld) [Vol rate/Area] 97 mL/min/{1.73_m2} Normal > OR = 60 [facility] Comment on above: Performed By: #### 2 13, 175, 927, 6517, 1005, 82194, 68200, 8525 #### [facility] [place] [address] Estimating Manager: Christiano Rapp MD Glucose [Mass/Vol] 88 mg/dL Normal 65-99 [facility] Comment on above: Result Comment: Fasting reference interval Performed By: #### 2 13, 1759, 927, 6517, 1005, 06534, 15986, 8525 #### [facility] [place] [address] Estimating Manager: Christiano Rapp MD Potassium [Moles/Vol] 3.9 mmol/L Normal 3.5-5.[address] [facility] Comment on above: Performed By: #### 2 13, 1759, 927, 6517, 1005, 82528, 56034, 8525 #### [facility] [place] [address] Estimating Manager: Christiano Rapp MD Sodium [Moles/Vol] 141 mmol/L Normal 135-146 [facility] Comment on above: Performed By: #### 2 13, 1759, 927, 6517, 1005, 45787, 86113, 8525 #### [facility] [place] [address] Estimating Manager: Christiano Rapp MD Urea nitrogen [Mass/Vol] 15 mg/dL Normal 7-25 [facility] Comment on above: Performed By: #### 2 13, 1759, 927, 6517, 1005, 62781, 73626, 8525 #### [facility] [place] [address] Estimating Manager: Christiano Rapp MD Urea nitrogen/Creatinine [Mass ratio] 36 mg/mg High 6-22 [facility] Comment on above: Performed By: #### 2 13, 1759, 927, 6517, 1005, 87091, 59637, 8525 #### [facility] [place] [address] Estimating Manager: Christiano Rapp MD CBC (H/H, RBC, INDICES, WBC, PLT)on 02-10-2025 Erythrocyte distribution width (RBC) [Ratio] 12.7 % Normal 11.0-15.0 [facility] Comment on above: Performed By: #### 2 13, 1759, 927, 6517, 1005, 01054, 86258, 8525 #### [facility] [place] [address] Estimating Manager: Christiano Rapp MD Hematocrit (Bld) [Volume fraction] 47.9 % High 35.0-45.0 [facility] Comment on above: Performed By: #### 2 13, 1759, 927, 6517, 1005, 04637, 75970, 8525 #### [facility] [place] [address] Estimating Manager: Christiano Rapp MD Hemoglobin (Bld) [Mass/Vol] 15.5 g/dL Normal 11.7-15.5 [facility] Comment on above: Performed By: #### 2 13, 175, 92, 6517, 1005, 82811, 51044, 8525 #### [facility] of [address], [address] [place] [address] Estimating Manager: Christiano Rapp MD MCH (RBC) [Entitic mass] 33.7 pg High 27.0-33.0 [facility] Comment on above: Performed By: #### 2 13, 175, 927, 6517, 1005, 88070, 30711, 8525 #### [facility] [place] [address] Estimating Manager: Christiano Rapp MD MCHC (RBC) [Mass/Vol] 32.4 g/dL Normal 32.0-36.[address] [facility] Comment on above: Result Comment: For adults, a slight decrease in the calculated MCHC value (in the range of 30 to 32 g/dL) is most likely not clinically significant; however, it should be interpreted with caution in correlation with other red cell parameters and the patient's clinical condition. Performed By: #### 2 13, 175, 927, 6517, 1005, 91487, 60616, 8525 #### [facility] [address], [address] [place] [address] Estimating Manager: Christiano Rapp MD MCV (RBC) [Entitic vol] 104.1 fL High 80.0-100.0 [facility] Comment on above: Performed By: #### 2 13, 1759, 927, 6517, 1005, 65030, 41601, 8525 #### [facility] [address], [address] [place] [address] Estimating Manager: Christiano Rapp MD Platelet mean volume (Bld) [Entitic vol] 10.7 fL Normal 7.5-12.5 [facility] Comment on above: Performed By: #### 2 13, 1759, 927, 6517, 1005, 58288, 03977, 8525 #### [facility] [address], [address] [place] [address] Estimating Manager: Christiano Rapp MD Platelets (Bld) [#/Vol] 213 10*3/uL Normal 140-400 [facility] Comment on above: Performed By: #### 2 13, 1759, 927, 6517, 1005, 48808, 48684, 8525 #### [facility] [place] [address] Estimating Manager: Christiano Rapp MD RBC (Bld) [#/Vol] 4.60 10*6/uL Normal 3.80-5.10 [facility] Comment on above: Performed By: #### 2 13, 1759, 927, 6517, 1005, 35483, 92490, 8525 #### [facility] [place] [address] Estimating Manager: Christiano Rapp MD WBC (Bld) [#/Vol] 8.3 10*3/uL Normal 3.8-10.8 [facility] Comment on above: Performed By: #### 2 13, 1759, 927, 6517, 1005, 06544, 12879, 8525 #### [facility] [place] [address] Estimating Manager: Christiano Rapp MD IMMUNOFIXATION IGA,IGG,IGM Q T.IMMUNOFIXATION SERUM IMMUNOGLOBULINon 02-10-2025 FENG INTERPRETATION Normal [facility] Comment on above: Order Comment: 0; 0; 0; 0; 0; 0 FASTING:YES FASTING: YES Result Comment: IgG lambda monoclonal band present. A faint band in IgG Brady cannot be ruled out from the serum immunofixation electrophoresis pattern. Consider repeat of serum and/or urine immunofixation electrophoresis if clinically indicated. Performed By: #### 2 13, 1759, 927, 6517, 1005, 87133, 94847, 8525 #### [facility] [address], [address] [place] [address] Estimating Manager: Christiano Rapp MD Result Comment: A fa int band of Brady light chain cannot be ruled out. Consider repeat urine protein immunofixation electrophoresis in a 24-hour collection or repeat in 6-12 months if clinically indicated. A faint band of Lambda light chain cannot be ruled out. Consider repeat urine protein immunofixation electrophoresis in a 24-hour collection or repeat in 6-12 months if clinically indicated. IMMUNOGLOBULIN A 383 mg/dL High 70-320 [facility] Comment on above: Order Comment: 0; 0; 0; 0; 0; 0 FASTING:YES FASTING: YES Performed By: #### 2 13, 1759, 927, 6517, 1005, 79965, 73707, 8525 #### [facility] [place] [address] Estimating Manager: Christiano Rapp MD IMMUNOGLOBULIN G 1343 mg/dL Normal 600-1540 [facility] Comment on above: Order Comment: 0; 0; 0; 0; 0; 0 FASTING:YES FASTING: YES Performed By: #### 2 13, 1759, 927, 6517, 1005, 21729, 20068, 8525 #### [facility] [address], [address] [place] [address] Estimating Manager: Christiano Rapp MD IMMUNOGLOBULIN M 178 mg/dL Normal 50-300 [facility] Comment on above: Order Comment: 0; 0; 0; 0; 0; 0 FASTING:YES FASTING: YES Performed By: #### 2 13, 1759, 927, 6517, 1005, 76595, 82531, 8525 #### [facility] [address], [address] [place] [address] Estimating Manager: Christiano Rapp MD IMMUNOGLOBULINS A/E/G/M,SERU 02-10-2025 IMMUNOGLOBULIN A 386 mg/dL High 70-320 [facility] Comment on above: Order Comment: 0; 0; 0; 0; 0; 0 FASTING:YES FASTING: YES Performed By: #### 2 13, 1759, 927, 6517, 1005, 83638, 58685, 8525 #### [facility] [place] [address] Estimating Manager: Christiano Rapp MD IMMUNOGLOBULIN E 18 kU/L Normal [facility] Comment on above: Order Comment: 0; 0; 0; 0; 0; 0 FASTING:YES FASTING: YES Performed By: #### 2 13, 1759, 927, 6517, 1005, 37057, 52610, 8525 #### [facility] [place] [address] Estimating Manager: Christiano Rapp MD IMMUNOGLOBULIN G 1332 mg/dL Normal 600-1540 [facility] Comment on above: Order Comment: 0; 0; 0; 0; 0; 0 FASTING:YES FASTING: YES Performed By: #### 2 13, 1759, 927, 6517, 1005, 90946, 56863, 8525 #### [facility] [place] [address] Estimating Manager: Christiano Rapp MD IMMUNOGLOBULIN M 181 mg/dL Normal 50-300 [facility] Comment on above: Order Comment: 0; 0; 0; 0; 0; 0 FASTING:YES FASTING: YES Performed By: #### 2 13, 1759, 927, 6517, 1005, 03387, 81044, 8525 #### [facility] [place] [address] Estimating Manager: Christiano Rapp MD KAPPA/LAMBDA LIGHT CHAINS FR EE WITH RATIO, SERUMon 02-10-2025 KAPPA LIGHT CHAIN, FREE, SERUM 35.3 mg/L High 3.3-19.4 [facility] Comment on above: Performed By: #### 2 13, 1759, 927, 6517, 1005, 90798, 20823, 8525 #### [facility] [place] [address] Estimating Manager: Christiano Rapp MD KAPPA/LAMBDA LIGHT CHAINS FREE WITH RATIO, SERUM 1.10 Normal 0.26-1.65 [facility] Comment on above: Result Comment: Free kappa/lambda ratio in serum of normal individuals is 0.26-1.65. Excess production of free kappa or lambda chains can alter this ratio. Monoclonal free light chains are found in serum of patients with multiple myeloma, Waldenstrom's macroglobulinemia, mu-heavy chain disease, primary amyloidosis, light chain deposition disease, monoclonal gammopathy of undetermined significance, and lymphoproliferative disorders. Measurement of free light chain concentration in serum is useful for diagnosis, prognosis, monitoring disease activity and following response to therapy of these disorders. Performed By: #### 2 13, 1759, 927, 6517, 1005, 00600, 25524, 8525 #### [facility] [place] [address] Estimating Manager: Christiano Rapp MD LAMBDA LIGHT CHAIN, FREE, SERUM 32.2 mg/L High 5.7-26.3 [facility] Comment on above: Performed By: #### 2 13, 1759, 927, 6517, 1005, 05075, 78968, 8525 #### [facility] [place] [address] Estimating Manager: Christiano Rapp MD PROTEIN, TOTAL AND PROTEIN E LECTROPHORESIS, RANDOM URINEon 02-10-2025 ALBUMIN 44 % Normal [facility] Comment on above: Performed By: #### 2 13, 1759, 927, 6517, 1005, 71820, 80907, 8525 #### [facility] [place] [address] Estimating Manager: Christiano Rapp MD [id number] 5 % Normal [facility] Comment on above: Performed By: #### 2 13, 1759, 927, 6517, 1005, 17855, 65640, 8525 #### [facility] [place] [address] Estimating Manager: Christiano Rapp MD [id number] 14 % Normal [facility] Comment on above: Performed By: #### 2 13, 1759, 927, 6517, 1005, 26690, 41049, 8525 #### [facility] [address], [address] [place] [address] Estimating Manager: Christiano Rapp MD BETA GLOBULINS 15 % Normal [facility] Comment on above: Performed By: #### 2 13, 1759, 927, 6517, 1005, 31258, 20219, 8525 #### [facility] [address], [address] [place] [address] Estimating Manager: Christiano Rapp MD GAMMA GLOBULINS 22 % Normal [facility] Comment on above: Performed By: #### 2 13, 1759, 927, 6517, 1005, 20426, 16994, 8525 #### [facility] [address], [address] [place] [address] Estimating Manager: Christiano Rapp MD INTERPRETATION Normal [facility] Comment on above: Result Comment: Urin e protein electrophoresis reveals a faint band in the beta region that may indicate the presence of a monoclonal immunoglobulin. Suggest urine immunofixation electrophoresis if clinically indicated. Performed By: #### 2 13, 1759, 927, 6517, 1005, 35004, 67663, 8525 #### [facility] [address], [address] [place] [address] Estimating Manager: Christiano Rapp MD Protein (U) [Mass/Vol] 29 mg/dL High 5-24 [facility] Comment on above: Performed By: #### 2 13, 1759, 927, 6517, 1005, 01824, 47418, 8525 #### [facility] [place] [address] Estimating Manager: Christiano Rapp MD PROTEIN/CREATININE RATIO 221 mg/g creat High 24-184 [facility] Comment on above: Performed By: #### 2 13, 1759, 927, 6517, 1005, 10762, 58290, 8525 #### [facility] [address], [address] [place] [address] Estimating Manager: Christiano Rapp MD PROTEIN/CREATININE RATIO 0.221 mg/mg creat High 0.024-0.18 4 [facility] Comment on above: Performed By: #### 2 13, 1759, 927, 6517, 1005, 62346, 51022, 8525 #### [facility] [address], [address] [place] [address] Estimating Manager: Christiano Rapp MD TEST AUTHORIZATIONon 025 CLIENT CONTACT: GERRY MIN Normal [facility] Comment on above: Performed By: #### 2 13, 1759, 927, 6517, 1005, 70573, 28176, 8525 #### [facility] [address], [address] [place] [address] Estimating Manager: Christiano Rapp MD COMMENT Normal [facility] Comment on above: Result Comment: Plea se have the ordering physician or his or her authorized event marketing representative sign a copy of this report and promptly return it by faxing it to: [phone] or by returning the form to your optical goods worker. Performed By: #### 2 13, 1759, 927, 6517, 1005, 44489, 51877, 8525 #### [facility] [address], [address] [place] [address] Estimating Manager: Christiano Rapp MD REPORT ALWAYS MESSAGE SIGNATURE Normal [facility] Comment on above: Result Comment: The laboratory testing on this patient was verbally requested or confirmed by the ordering physician or his or her authorized event marketing representative after contact with an employee of [employer]. Federal regulations require that we maintain on file written authorization for all laboratory testing. Accordingly we are asking that the ordering physician or his or her authorized event marketing representative sign a copy of this report and promptly return it to the senior private client advisor. Signature: Performed By: #### 2 13, 1759, 927, 6517, 1005, 67376, 38834, 8525 #### [facility] [place] [address] Estimating Manager: Christiano Rapp MD TEST CODE: 927SB Normal [facility] Comment on above: Performed By: #### 2 13, 1759, 927, 6517, 1005, 69766, 11262, 8525 #### [facility] [address], [address] [place] [address] Estimating Manager: Christiano Rapp MD TEST NAME: VITAMIN B12 Normal [facility] Comment on above: Performed By: #### 2 13, 1759, 927, 6517, 1005, 54002, 95612, 8525 #### [facility] [address], [address] [place] [address] Estimating Manager: Christiano Rapp MD VITAMIN B12 02-10-2025 Cobalamin (Vitamin B12) [Mass/Vol] 502 pg/mL Normal 200-1100 [facility] Comment on above: Performed By: #### 2 13, 1759, 927, 6517, 1005, 37678, 59423, 8525 #### [facility] [place] [address] Estimating Manager: Christiano Rapp MD 01-31-2025 36 Name of caller: Shanna brewer ([facility]) Contact phone number: [phone] Relationship to Patient: layla Provider: Dr. Guthrie Practice: [facility] Chief Complaint/Reason for Call: Calling to advise after several attempts to contact Pt for OT appt this week. Kaye was unable to reach patient for visit. Please advise Best time of day caller can be reached: Any AM Patient advised that office/PCP has 24-48 business hours to return their call: N/A Normal [facility] 01-28-2025 36 ----- Message from LAVELLE Polo CNP sent at 01/28/2025 8:10 AM EDT ----- Please notify pt of the following; Serum protein electrophoresis needs further evaluation with PCP before we can consider moving forward with osteoporosis treatment as discussed. Have her let us know once she has followed up with her PCP for this. Labs are otherwise stable. Please fax results to her PCP especially concerning the serum protein electrophoresis, have PCP office send us further workup once completed. ----- Message ----- From: [employer] Automated UserAnastasiia Sent: 01/23/2025 7:22 PM EDT To: Felecia Mercado APRN - MARJ Normal [facility] 37on 01-23-2025 37 Call [phone] to schedule your bone density test Normal [facility] Office Visiton 01-23-2025 Follow-up visit [id number] Kelsey Rosales 1940 F Date Provider Department Center 01/23/2025 [id number] None Family History Adopted: Yes Problem Relation Age of Onset Chronic bronchitis Mother Emphysema Mother Family Status - Relation Status Age at Mother Level of Service:26006 MA OFFICE/OUTPATIENT NEW LOW MDM 30 MINUTES Reason for Visit and Comments: Osteoporosis [[id number]] Normal [facility] Progress Noteon 01-23-2025 Progress Note [facility] - [address] [facility] [facility], [place] [address] Dept: [phone] Dept Loc: [phone] Visit type: New patient Reason for Visit: Osteoporosis Assessment and Plan 1. Age-related osteoporosis without current pathological fracture - Comprehensive metabolic panel - Vitamin D Deficiency Screening (Vit D 25) - TSH - PTH, intact - Magnesium - Protein, Total and Protein Electrophoresis - Collagen Type I C-Telopeptide (CTx) - PROCOLLAGEN TYPE I INTACT N TERMINAL PROPEPTIDE - DEXA bone density axial skeleton 2. Postmenopausal - Comprehensive metabolic panel - Vitamin D Deficiency Screening (Vit D 25) - TSH - PTH, intact - Magnesium - Protein, Total and Protein Electrophoresis - Collagen Type I C-Telopeptide (CTx) - PROCOLLAGEN TYPE I INTACT N TERMINAL PROPEPTIDE - DEXA bone density axial skeleton 3. History of fragility fracture - Comprehensive metabolic panel - Vitamin D Deficiency Screening (Vit D 25) - TSH - PTH, intact - Magnesium - Protein, Total and Protein Electrophoresis - Collagen Type I C-Telopeptide (CTx) - PROCOLLAGEN TYPE I INTACT N TERMINAL PROPEPTIDE - DEXA bone density axial skeleton 4. Fracture Risk Assessment Score (FRAX) indicating greater than 20% risk for major osteoporosis-related fracture 5. Fracture Risk Assessment Score (FRAX) indicating greater than 3% risk for hip fracture FRAX: 10 year risk of major osteoporotic fracture 33% and of hip fracture 13%. Osteoporosis Treatment Recommendations: Bone anabolic therapy was discussed as a treatment option for osteoporosis. Pt is aware of the risks of this therapy including the rare risk of osteosarcoma. Benefits of this therapy were also discussed. Pt understands that this therapy is self administered via subcutaneous injection daily for 18-24 months followed by anti-resorptive therapy. Lifestyle modifications were discussed as part of treatment for low bone mineral density. I recommended optimizing calcium to 1200mg daily in divided doses, preferably through diet. I also recommended optimizing vitamin D supplementation, patient will be guided on dosage adjustment pending labs if needed. We discussed limiting alcohol, caffeine and pop. I recommended adding prunes into daily diet for bone health. Safe weight bearing exercise recommended for 30 minutes at least three times weekly. Fall prevention was discussed. Safe lifting was discussed with this patient. Patient understands to lift with legs. Pt should avoid activities that cause bending and twisting of the spine such as crunches due to increased risk of vertebral fractures. Physical therapy referral was offered to the patient. Patient understands that physical therapy can be beneficial for osteoporosis to help with posture, balance/fall prevention and strength. Pillo Method may also be used during therapy to help with muscle strengthening, posture and alignment. Pt declines at this time. Advised pt on the following: Adequate dietary calcium intake of 0514-0895 mg per day through diet and/or supplements. Vitamin D3 7234-1831 IU daily. Participate in weight bearing exercises. Optimize home environment to minimize falls. Ensure good vision through regular eye exams. Avoid tobacco use and excessive alcohol consumption. Avoid use of steroids unless clinically necessary. Options for medical therapy discussed. These include bisphosphonates (oral or IV), denusomab, romosozumab, and parathyroid hormone. Discussed pros and cons of each option. Discussed appropriate administration. Discussed possible side effects. Follow up in about 6 months (around 07/25/2025). Subjective The patient is referred for: Osteoporosis Referred by No ref. provider found The osteopenia/osteoporosis was first diagnosed on: 2019 Risk factors for osteoporosis in the patient are history of the following postmenopausal estrogen deficiency or dietary calcium and/or vitamin D deficiency, race. Fracture history: Rib fractures 05/2024 from turning over on cot Vertebral fracture, non-traumatic R shoulder fracture from fall age 80 Family history of OP: unknown Hip fracture in parent: unknown Rheumatoid arthritis: No Steroid use of at least 3 months: No Current smoking: No Alcohol use: No Secondary osteoporosis: No Menopause: unknown- partial hyst in her twenties HRT use: None DEXA imagin03/12/19 FINDINGS: Femoral neck Density: 0.511 g/cm2. T-score: -3.0 Z-score: -0.8 Total Hip Density: 0.653 g/cm2. T-score: -2.4 Z-score: -0.4 Comparison from prior examination: N/A Spine: L1-L4 Density 0.796 g/cm2. T-score: -2.3 Z-score: 0.3 Comparison from prior examination: N/A Labs: see below Current treatment: None Calcium supplementation: None Vit D supplementation: 2000iu daily Dairy intake: milk daily, chees (more content not included)... Normal [facility] Protein, totalon 01-23-2025 Interpretation and review of laboratory results Normal [facility] [place] Protein [Mass/Vol] 6.5 g/dL 6.4 - 8.3 g/dL [facility] Comment on above: Serum protein values are higher than plasma values. Samples from recumbent persons are lower by up to 0.5 g/dL as compared to ambulatory persons. After 60 years values are lower by up to 0.2 g/dL. [facility] SERUM ELECTROPHORESISon Albumin [Mass/Vol] 3.5 g/dL Normal 3.1-4.8 [facility] Comment on above: Order Comment: THIS IS A CARVE-OUT LAB: SPECIMEN MUST BE SENT TO [facility] FOR PROCESSING Performed By: #### L [id number] #### Estimating Manager: ANGELICA LUZ ([phone]) [facility] ([address] ALPHA 1 0.2 g/dL Normal 0.2-0.4 [facility] Comment on above: Order Comment: THIS IS A CARVE-OUT LAB: SPECIMEN MUST BE SENT TO [facility] FOR PROCESSING Performed By: #### L [id number] #### Estimating Manager: ANGELICA LUZ ([phone]) [facility]) [address] [place] [address] ALPHA 2 0.6 g/dL Normal 0.6-1.0 [facility] Comment on above: Order Comment: THIS IS A CARVE-OUT LAB: SPECIMEN MUST BE SENT TO [facility] FOR PROCESSING Performed By: #### L [id number] #### Estimating Manager: ANGELICA LUZ ([phone]) [facility]) [address] [place] [address] [place] BETA 1 0.4 g/dl Normal 0.3-0.6 [facility] Comment on above: Order Comment: THIS IS A CARVE-OUT LAB: SPECIMEN MUST BE SENT TO [facility] FOR PROCESSING Performed By: #### L [id number] #### Estimating Manager: ANGELICA LUZ ([phone]) [facility] ([facility]) [address] [place] [address] [place] BETA 2 0.4 g/dl Normal 0.3-0.5 [facility] Comment on above: Order Comment: THIS IS A CARVE-OUT LAB: SPECIMEN MUST BE SENT TO [facility] FOR PROCESSING Performed By: #### L [id number] #### Estimating Manager: ANGELICA LUZ ([phone]) [facility] ([facility]) [address] [place] [address] [place] GAMMA GLOBULIN 1.4 g/dL Normal 0.4-1.4 [facility] Comment on above: Order Comment: THIS IS A CARVE-OUT LAB: SPECIMEN MUST BE SENT TO [facility] FOR PROCESSING Performed By: #### L [id number] #### Estimating Manager: ANGELICA LUZ ([phone]) [facility]) [address] [place] [address] [place] PROTEIN FRACTION (INTERPRETATION) IN SER/PLAS BY ELECTROPHORESIS See Below Normal [facility] Comment on above: Order Comment: THIS IS A CARVE-OUT LAB: SPECIMEN MUST BE SENT TO [facility] FOR PROCESSING Result Comment: Dist inct band present in the gamma region. The band has a concentration of 0.40 g/dL. See FENG for additional information. Performed By: #### L [id number] #### Estimating Manager: ANGELICA LUZ ([phone]) [facility] ([facility]) [address] [place] [address] RELEASED BY Angelica Luz M.D. [facility] Comment on above: Order Comment: THIS IS A CARVE-OUT LAB: SPECIMEN MUST BE SENT TO [facility] FOR PROCESSING Result Comment: This is an appended report. These results have been appended to a previously preliminary verified report. Performed By: #### L [id number] #### Estimating Manager: ANGELICA LUZ ([phone]) [facility]) [address] [place] [address] REVIEWED BY Sukhi Bryant, Ph.D. [facility] Comment on above: Order Comment: THIS IS A CARVE-OUT LAB: SPECIMEN MUST BE SENT TO [facility] FOR PROCESSING Performed By: #### L [id number] #### Estimating Manager: ANGELICA LUZ ([phone]) [facility]) [address] [place] [address] TOTAL PROTEIN (SERUM PROTEIN ELECTROPHORESIS)on 01-23-2025 Protein [Mass/Vol] 6.5 g/dL Normal 6.4-8.3 [facility] Comment on above: Order Comment: THIS IS A CARVE-OUT LAB: SPECIMEN MUST BE SENT TO [facility] FOR PROCESSING Result Comment: Seru m protein values are higher than plasma values. Samples from recumbent persons are lower by up to 0.5 g/dL as compared to ambulatory persons. After 60 years values are lower by up to 0.2 g/dL. Performed By: #### L [id number] #### Estimating Manager: ANGELICA LUZ ([phone]) [facility] ([facility]) [address] [place] [address] Lumbar Spine 2 or 3 Viewson 01-14-2025 Lumbar Spine 2 or 3 Views Normal [facility] Orthopedic Visit Reporton Orthopedic Visit Report Normal [facility] CARDIO IQ(R) NT PROBNPon Natriuretic peptide B (Bld) [Mass/Vol] 2733 pg/mL High <450 [facility] Comment on above: Performed By: #### 2 13, 1759, 927, 6517, 1005, 41964, 90507, 8525 #### [facility] [place] [address] Estimating Manager: Christiano Rapp MD CBC (H/H, RBC, INDICES, WBC, PLT)on 01-13-2025 Erythrocyte distribution width (RBC) [Ratio] 13.9 % Normal 11.0-15.0 [facility] Comment on above: Performed By: #### 2 13, 1759, 927, 6517, 1005, 94268, 01211, 8525 #### [facility] [place] [address] Estimating Manager: Christiano Rapp MD Hematocrit (Bld) [Volume fraction] 41.0 % Normal 35.0-45.0 [facility] Comment on above: Performed By: #### 2 13, 1759, 927, 6517, 1005, 99377, 40421, 8525 #### [facility] [place] [address] Estimating Manager: Christiano Rapp MD Hemoglobin (Bld) [Mass/Vol] 13.4 g/dL Normal 11.7-15.5 [facility] Comment on above: Performed By: #### 2 13, 1759, 927, 6517, 1005, 51379, 40835, 8525 #### [facility] [place] [address] Estimating Manager: Christiano Rapp MD MCH (RBC) [Entitic mass] 33.4 pg High 27.0-33.0 [facility] Comment on above: Performed By: #### 2 13, 1759, 927, 6517, 1005, 91092, 15551, 8525 #### [facility] [place] [address] Estimating Manager: Christiano Rapp MD MCHC (RBC) [Mass/Vol] 32.7 g/dL Normal 32.0-36.[address] [facility] Comment on above: Result Comment: For adults, a slight decrease in the calculated MCHC value (in the range of 30 to 32 g/dL) is most likely not clinically significant; however, it should be interpreted with caution in correlation with other red cell parameters and the patient's clinical condition. Performed By: #### 2 13, 1759, 927, 6517, 1005, 86382, 70517, 8525 #### [facility] [place] [address] Estimating Manager: Christiano Rapp MD MCV (RBC) [Entitic vol] 102.2 fL High 80.0-100.0 [facility] Comment on above: Performed By: #### 2 13, 1759, 927, 6517, 1005, 94457, 22117, 8525 #### [facility] [place] [address] Estimating Manager: Christiano Rapp MD Platelet mean volume (Bld) [Entitic vol] 10.9 fL Normal 7.5-12.5 [facility] Comment on above: Performed By: #### 2 13, 1759, 927, 6517, 1005, 16712, 28812, 8525 #### [facility] [place] [address] Estimating Manager: Christiano Rapp MD Platelets (Bld) [#/Vol] 255 10*3/uL Normal 140-400 [facility] Comment on above: Performed By: #### 2 13, 1759, 927, 6517, 1005, 84607, 67470, 8525 #### [facility] [place] [address] Estimating Manager: Christiano Rapp MD RBC (Bld) [#/Vol] 4.01 10*6/uL Normal 3.80-5.10 [facility] Comment on above: Performed By: #### 2 13, 1759, 927, 6517, 1005, 46424, 79858, 8525 #### [facility] of [place] [address] [facility], [address] [place] [phone] Estimating Manager: Christiano Rapp MD WBC (Bld) [#/Vol] 8.1 10*3/uL Normal 3.8-10.8 [facility] Comment on above: Performed By: #### 2 13, 1759, 927, 6517, 1005, 98007, 40612, 8525 #### [facility] of [address], [address] [place] [phone] Estimating Manager: Christiano Rapp MD CBC W/Diff, Automatedon 12-20 PATH REV N/A [facility] Comment on above: Result Comment: AMENDED REPORT 01/13/256 PATH REV previously reported as: May foll Performed By: #### L 500.4050, L100.0100, L501.5200, L501.2450, L501.2300 ####[facility] [id number] [facility] [place], [address] PATH REV N/A Normal [facility] Comment on above: Result Comment: AMENDED REPORT 01/13/251533 PATH REV previously reported as: May foll Performed By: #### L 500.4050, L100.0100, L501.9520, L300.3900 ####[facility] [id number] [facility] [place], [address] COMPREHENSIVE METABOLIC PANE [facility] 01-13-2025 Albumin [Mass/Vol] 3.3 g/dL Low 3.6-5.1 [facility] Comment on above: Order Comment: 0; 0; 0; 0; 0; 0 FASTING:YES FASTING: YES Performed By: #### 2 13, 1759, 927, 6517, 1005, 33091, 08412, 8525 #### [facility] [place] [address] [address] Estimating Manager: Christiano Rapp MD Albumin/Globulin [Mass ratio] 1.2 {ratio} Normal 1.0-2.5 [facility] Comment on above: Order Comment: 0; 0; 0; 0; 0; 0 FASTING:YES FASTING: YES Performed By: #### 2 13, 1759, 927, 6517, 1005, 85090, 68518, 8525 #### [facility] [place] [address] Estimating Manager: Christiano Rapp MD ALP [Catalytic activity/Vol] 105 U/L Normal 37-153 [facility] Comment on above: Order Comment: 0; 0; 0; 0; 0; 0 FASTING:YES FASTING: YES Performed By: #### 2 13, 1759, 927, 6517, 1005, 22978, 30716, 8525 #### [facility] [place] [address] Estimating Manager: Christiano Rapp MD ALT [Catalytic activity/Vol] 9 U/L Normal 6-29 [facility] Comment on above: Order Comment: 0; 0; 0; 0; 0; 0 FASTING:YES FASTING: YES Performed By: #### 2 13, 1759, 927, 6517, 1005, 89024, 97966, 8525 #### [facility] [place] [address] Estimating Manager: Christiano Rapp MD AST [Catalytic activity/Vol] 18 U/L Normal 10-35 [facility] Comment on above: Order Comment: 0; 0; 0; 0; 0; 0 FASTING:YES FASTING: YES Performed By: #### 2 13, 1759, 927, 6517, 1005, 12956, 70926, 8525 #### [facility] [place] [address] Estimating Manager: Christiano Rapp MD Bilirubin [Mass/Vol] 0.8 mg/dL Normal 0.2-1.2 [facility] Comment on above: Order Comment: 0; 0; 0; 0; 0; 0 FASTING:YES FASTING: YES Performed By: #### 2 13, 1759, 927, 6517, 1005, 88348, 96577, 8525 #### [facility] [place] [address] Estimating Manager: Christiano Rapp MD Calcium [Mass/Vol] 9.1 mg/dL Normal 8.6-10.4 [facility] Comment on above: Order Comment: 0; 0; 0; 0; 0; 0 FASTING:YES FASTING: YES Performed By: #### 2 13, 1759, 927, 6517, 1005, 42942, 65297, 8525 #### [facility] [place] [address] Estimating Manager: Christiano Rapp MD Chloride [Moles/Vol] 103 mmol/L Normal 98-110 [email or web address] Comment on above: Order Comment: 0; 0; 0; 0; 0; 0 FASTING:YES FASTING: YES Performed By: #### 2 13, 1759, 927, 6517, 1005, 26788, 30916, 8525 #### [facility] [place] [address] Estimating Manager: Christiano Rapp MD CO2 [Moles/Vol] 32 mmol/L Normal 20-32 [facility] Comment on above: Order Comment: 0; 0; 0; 0; 0; 0 FASTING:YES FASTING: YES Performed By: #### 2 13, 1759, 927, 6517, 1005, 10277, 03536, 8525 #### [facility] [place] [address] Estimating Manager: Christiano Rapp MD Creatinine [Mass/Vol] 0.44 mg/dL Low 0.60-0.[address] [facility] Comment on above: Order Comment: 0; 0; 0; 0; 0; 0 FASTING:YES FASTING: YES Performed By: #### 2 13, 1759, 927, 6517, 1005, 23626, 23794, 8525 #### [facility] [address] [place] [address] Estimating Manager: Christiano Rapp MD GFR/1.73 sq M.predicted among non-blacks MDRD (S/P/Bld) [Vol rate/Area] 96 mL/min/{1.73_m2} Normal > OR = 60 [facility] Comment on above: Order Comment: 0; 0; 0; 0; 0; 0 FASTING:YES FASTING: YES Performed By: #### 2 13, 1759, 927, 6517, 1005, 95315, 25123, 8525 #### [facility] [address], [address] [place] [address] Estimating Manager: Christiano Rapp MD Globulin (S) [Mass/Vol] 2.7 g/dL Normal 1.9-3.7 [facility] Comment on above: Order Comment: 0; 0; 0; 0; 0; 0 FASTING:YES FASTING: YES Performed By: #### 2 13, 1759, 927, 6517, 1005, 40823, 17176, 8525 #### [facility] [address], [address] [place] [address] Estimating Manager: Christiano Rapp MD Glucose [Mass/Vol] 76 mg/dL Normal 65-99 [facility] Comment on above: Order Comment: 0; 0; 0; 0; 0; 0 FASTING:YES FASTING: YES Result Comment: Fasting reference interval Performed By: #### 2 13, 1759, 927, 6517, 1005, 67292, 73293, 8525 #### [facility] [address], [address] [place] [address] Estimating Manager: Christiano Rapp MD Potassium [Moles/Vol] 4.2 mmol/L Normal 3.5-5.3 [facility] Comment on above: Order Comment: 0; 0; 0; 0; 0; 0 FASTING:YES FASTING: YES Performed By: #### 2 13, 1759, 927, 6517, 1005, 38679, 62332, 8525 #### [facility] [address], [address] [place] [address] Estimating Manager: Christiano Rapp MD Protein [Mass/Vol] 6.0 g/dL Low 6.1-8.1 [facility] Comment on above: Order Comment: 0; 0; 0; 0; 0; 0 FASTING:YES FASTING: YES Performed By: #### 2 13, 1759, 927, 6517, 1005, 09691, 08443, 8525 #### [facility] [place] [address] Estimating Manager: Christiano Rapp MD Sodium [Moles/Vol] 141 mmol/L Normal 135-146 [facility] Comment on above: Order Comment: 0; 0; 0; 0; 0; 0 FASTING:YES FASTING: YES Performed By: #### 2 13, 1759, 927, 6517, 1005, 12455, 07907, 8525 #### [facility] [place] [address] Estimating Manager: Christiano Rapp MD Urea nitrogen [Mass/Vol] 17 mg/dL Normal 7-25 [facility] Comment on above: Order Comment: 0; 0; 0; 0; 0; 0 FASTING:YES FASTING: YES Performed By: #### 2 13, 1759, 927, 6517, 1005, 13063, 23958, 8525 #### [facility] [place] [address] Estimating Manager: Christiano Rapp MD Urea nitrogen/Creatinine [Mass ratio] 39 mg/mg High 6- [facility] Comment on above: Order Comment: 0; 0; 0; 0; 0; 0 FASTING:YES FASTING: YES Performed By: #### 2 13, 1759, 927, 6517, 1005, 98617, 26752, 8525 #### [facility] [place] [address] Estimating Manager: Christiano Rapp MD TEST AUTHORIZATIONon CLIENT CONTACT: RAUL MIN Normal [facility] Comment on above: Performed By: #### 2 13, 1759, 927, 6517, 1005, 89401, 79176, 8525 #### [facility] [address], [address] [place] [address] Estimating Manager: Christiano Rapp MD COMMENT Normal [facility] Comment on above: Result Comment: Plea se have the ordering physician or his or her authorized event marketing representative sign a copy of this report and promptly return it by faxing it to: [phone] or by returning the form to your optical goods worker. Performed By: #### 2 13, 1759, 927, 6517, 1005, 70545, 81378, 8525 #### [facility] [address], [address] [place] [address] Estimating Manager: Christiano Rapp MD REPORT ALWAYS MESSAGE SIGNATURE Normal [facility] Comment on above: Result Comment: The laboratory testing on this patient was verbally requested or confirmed by the ordering physician or his or her authorized event marketing representative after contact with an employee of [employer]. Federal regulations require that we maintain on file written authorization for all laboratory testing. Accordingly we are asking that the ordering physician or his or her authorized event marketing representative sign a copy of this report and promptly return it to the senior private client advisor. Signature: Performed By: #### 2 13, 1759, 927, 6517, 1005, 17399, 28049, 8525 #### [facility] [address], [address] [place] [address] Estimating Manager: Christiano Rapp MD TEST CODE: [id number] Normal [facility] Comment on above: Performed By: #### 2 13, 1759, 927, 6517, 1005, 14487, 06626, 8525 #### [facility] [address], [address] [place] [address] Estimating Manager: Christiano Rapp MD TEST NAME: VITAMIN B12/FOLATE, Normal [facility] Comment on above: Performed By: #### 2 13, 1759, 927, 6517, 1005, 75412, 09462, 8525 #### [facility] [address] [place] [address], [address] [place], [place] [id number] Estimating Manager: Christiano Rapp MD VITAMIN B12/FOLATE, SERUM [place]on 01-13-2025 Cobalamin (Vitamin B12) [Mass/Vol] 515 pg/mL Normal 200-1100 [facility] Comment on above: Performed By: #### 2 13, 1759, 927, 6517, 1005, 51361, 25309, 8525 #### [facility] [address] [place] [address], [address] [place] [address] Estimating Manager: Christiano Rapp MD Folate [Mass/Vol] 20.7 ng/mL Normal [facility] Comment on above: Result Comment: Refe rence Range Low: <3.4 Borderline: 3.4-5.4 Normal: >5.4 Performed By: #### 2 13, 1759, 927, 6517, 1005, 89909, 63070, 8525 #### [facility] [address], [address] [place], [place] [id number] Estimating Manager: Christiano Rapp MD CBC W/Diff, Automatedon 12-20 PATH REV Reviewed Normal [facility] Comment on above: Result Comment: SEE REPORT IN PATIENT'S EMR AMENDED REPORT 01/09/25 1025 PATH REV previously reported as: December Performed By: #### L 503.6005, L100.0100, L500.4050, L501.4021, L503.7505 ####[facility] [id number] [place], [address] Discharge Instructionon 12-19 Discharge Instruction Normal [facility] Tang 12-31-2024 PRITI Telephone (HCSIND) LESLI ROSALES ([id number]) 1940 F Date Time Provider Department 12/31/24 MARTY GUTHRIE During your visit today, we recorded the following information about you: Ashleybeth PATSY Coppola 12/31/2024 3:[address] Marty Guthrie's office to inquire if physician will follow/sign for [facility]. Spoke with Gerry who confirmed MD will follow for [facility] orders. Allergies As of Date: 12/31/2024 (No Known Allergies) Date Reviewed: 10/03/2024 Reviewed by: Juni Sauceda RN - Fully Assessed Reason for Visit: Home Care [4073] Cmt: MD to follow Prescriptions as of 12/31/2024 - amitriptyline (ELAVIL) 25 mg tablet 25 mg daily at bedtime. - hydroCHLOROthiazide 12.5 mg capsule TAKE 1 CAPSULE BY MOUTH ONCE DAILY - famotidine (PEPCID) 20 mg tablet TAKE 1 TABLET BY MOUTH ONCE DAILY - atenolol (TENORMIN) 25 mg tablet Take 1 tablet by mouth once daily. - rivaroxaban (XARELTO) 20 mg tablet Take 1 tablet by mouth daily with dinner. - tiotropium (SPIRIVA WITH HANDIHALER) 18 mcg inhalation capsule inhale THE CONTENTS OF ONE CAPSULE IN THE HANDIHALER every morning - budesonide-formoterol (SYMBICORT) 160-4.5 mcg/actuation inhaler Inhale 2 Puffs as instructed two times a day. - lidocaine (LIDODERM) 5 % - gabapentin (NEURONTIN) 100 mg capsule Take 100 mg by mouth three times a day. - hydrOXYzine HCl (ATARAX) 25 mg tablet Take 1 tablet by mouth three times a day as needed. - risankizumab-rzaa (SKYRIZI) 150 mg/mL injection Inject 150 mg subcutaneously every 3 months. - albuterol HFA (PROVENTIL HFA, VENTOLIN HFA) 90 mcg/actuation inhaler - baclofen (LIORESAL) 5 mg tablet Take 5 mg by mouth twice daily. - betamethasone valerate 0.1 % cream Apply to affected area once daily. 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] 07/05/2022 Cervical spondylosis [M47.812] 07/05/2022 Chronic obstructive pulmonary disease (HCC) [J4*07/05/2022 Chronic atrial fibrillation (HCC) [I48.20] 07/05/2022 HTN (hypertension), benign [I10] 07/05/2022 Psoriasis, unspecified [L40.9] 07/05/2022 Chronic midline low back pain without sciatica *07/05/2022 Psoriatic arthritis (HCC) [L40.50] 07/05/2022 Restrictive lung disease [J98.4] 06/16/2023 Lung nodules [R91.8] 06/16/2023 Preop examination [Z01.818] 08/07/2023 Paroxysmal atrial fibrillation (HCC) [I48.0] 08/07/[address] scan, colon [R93.3] 08/07/2023 Chronic constipation [K59.09] 08/07/2023 Interstitial pulmonary disease (HCC) [J84.9] 12/28/2023 Idiopathic pulmonary fibrosis (HCC) [J84.112] 01/17/2024 09/12/2024 Obesity, Class I, BMI 30-34.9 [E66.811] 01/17/2024 Mild memory disturbances not amounting to demen*01/17/2024 Weakness [R53.1] 12/03/2024 Encounter Status:Closed by ANA RUSH on 12/31/24 Normal [facility] Decalcification bone/plaqueo n 12-30-2024 Decalcification bone/plaque [facility] Comment on above: Performed By: #### P DEC ####[facility] [address] [place], [place], [id number] Lumbar Spine 2 or 3 Viewson 12-30-2024 Lumbar Spine 2 or 3 Views Normal [facility] MR/POSTOP.ANEon 12-30-2024 MR/POSTOP.ANE Normal [facility] MR/[id number] 12-30-2024 MR/POSTOPAN2 Normal [facility] Operative Reporton Operative Report Normal [facility] Anion gap in Serum or Plasma Ordered By: Sveta Macias on 12-29-2024 Anion gap [Moles/Vol] 5 mmol/L 5-15 [facility] BUN/creatinine ratioOrdered By: Sveta Macias on 12-29-2024 Urea nitrogen/Creatinine [Mass ratio] 42.2 mg/mg High 10- [facility] Basic Metabolic Profile (BMP )on 12-29-2024 BUN/CRE 42.2 RATIO High 10- [facility] Comment on above: Performed By: #### L 100.0500, L500.2500 ####[facility] [address] [place], [address] Calcium [Mass/Vol] 9.0 mg/dL Normal 7.6-11.0 [facility] Comment on above: Performed By: #### L 100.0500, L500.2500 ####[facility] [address] [place], [address] Chloride [Moles/Vol] 106 mmol/L Normal 98-108 [facility] Comment on above: Performed By: #### L 100.0500, L500.2500 ####[facility] [address] [place], [address] CO2 [Moles/Vol] 29.9 mmol/L Normal 21.0-32.0 [facility] Comment on above: Performed By: #### L 100.0500, L500.2500 ####[facility] [address] [place], [address] Creatinine [Mass/Vol] 0.37 mg/dL Low 0.70-1.20 [facility] Comment on above: Performed By: #### L 100.0500, L500.2500 ####[facility] [address] [place], [address] ECRCL 44.80 ml/min Low 50-250 [facility] Comment on above: Performed By: #### L 100.0500, L500.2500 ####[facility] [address] [place], [address] GAP 5 Normal 5-15 [facility] Comment on above: Performed By: #### L 100.0500, L500.2500 ####[facility] [address] [place], [address] GFR/1.73 sq M.predicted among non-blacks MDRD (S/P/Bld) [Vol rate/Area] 100 mL/min/{1.73_m2} Normal >60 [facility] Comment on above: Result Comment: mL/m in/1.73m2 CKD-EPI Creatinine Equation (2020) Performed By: #### L 100.0500, L500.2500 ####[facility] [address] [place], [address] Glucose [Mass/Vol] 76 mg/dL Normal 70-99 [facility] Comment on above: Performed By: #### L 100.0500, L500.2500 ####[facility] [address] [place], [address] Potassium [Moles/Vol] 4.3 mmol/L Normal 3.3-5.1 [facility] Comment on above: Performed By: #### L 100.0500, L500.2500 ####[facility] [address] [place], [address] Sodium [Moles/Vol] 141 mmol/L Normal 133-145 [facility] Comment on above: Performed By: #### L 100.0500, L500.2500 ####[facility] [address] [place], [address] Urea nitrogen [Mass/Vol] 15 mg/dL Normal 4-19 [facility] Comment on above: Performed By: #### L 100.0500, L500.2500 ####[facility] [address] [place], [address] CBC-Complete Blood Cnt No Di ffon 12-29-2024 Erythrocyte distribution width (RBC) [Ratio] 14.4 % Normal 11.6-14.6 [facility] Comment on above: Performed By: #### L 100.0500, L500.2500 ####[facility] [address] [place], [address] Hematocrit (Bld) [Volume fraction] 38.1 % Normal 37-47 [facility] Comment on above: Performed By: #### L 100.0500, L500.2500 ####[facility] [address] [place], [address] Hemoglobin (Bld) [Mass/Vol] 12.2 g/dL Normal 12.0-15.0 [facility] Comment on above: Performed By: #### L 100.0500, L500.2500 ####[facility] [address] [place], [address] MCH (RBC) [Entitic mass] 32.4 pg High 27.0-32.0 [facility] Comment on above: Performed By: #### L 100.0500, L500.2500 ####[facility] [address] [place], [address] MCHC (RBC) [Mass/Vol] 32.0 g/dL Normal 32-36 [facility] Comment on above: Performed By: #### L 100.0500, L500.2500 ####[facility] [address] [place], [address] MCV (RBC) [Entitic vol] 101.3 fL High 81-99 [facility] Comment on above: Performed By: #### L 100.0500, L500.2500 ####[facility] [address] [place], [address] Platelet mean volume (Bld) [Entitic vol] 10.5 fL Normal 6.2-12.0 [facility] Comment on above: Performed By: #### L 100.0500, L500.2500 ####[facility] [address] [place], [address] Platelets (Bld) [#/Vol] 141 10*3/uL Low 150-450 [facility] Comment on above: Performed By: #### L 100.0500, L500.2500 ####[facility] [address] [place], [address] RBC (Bld) [#/Vol] 3.76 10*6/uL Low 4.2-5.4 [facility] Comment on above: Performed By: #### L 100.0500, L500.2500 ####[facility] [address] [place], [address] RDW SD 53.4 fl High 35.1-43.9 [facility] Comment on above: Performed By: #### L 100.0500, L500.2500 ####[facility] [address] [place], [address] WBC (Bld) [#/Vol] 7.2 10*3/uL Normal 4.4-11.0 [facility] Comment on above: Performed By: #### L 100.0500, L500.2500 ####[facility] [address] [place], [address] Carbon dioxide, total [Moles /volume] in Central venous bloodOrdered By: Sveta Macias on 12-29-2024 CO2 [Moles/Vol] 29.9 mmol/L 21.0-32.0 [facility] Chloride assayOrdered By: Zena Macias on 12-29-2024 Chloride [Moles/Vol] 106 mmol/L 98-108 [facility] Erythrocyte distribution wid th ratioOrdered By: Sveta Macias on 12-29-2024 Erythrocyte distribution width (RBC) [Ratio] 14.4 % 11.6-14.6 [facility] Erythrocyte distribution wid th standard deviationOrdered By: Sveta Macias on 12-29-2024 Erythrocyte distribution width (RBC) [Ratio] 53.4 fl High 35.1-43.9 [facility] Glomerular filtration rate ( GFR) estimation/1.73 sq m using serum, plasma, or whole bOrdered By: Sveta Macias on 12-29-2024 GFR/1.73 sq M.predicted among non-blacks MDRD (S/P/Bld) [Vol rate/Area] 100 mL/min/{1.73_m2} >60 [facility] Comment on above: mL/min/1.73m2 CKD-EP I Creatinine Equation (2020) Hematocrit Auto (Bld) [Volum e fraction]Ordered By: Sveta Macias on 12-29-2024 Hematocrit (Bld) [Volume fraction] 38.1 % 37-47 [facility] Hemoglobin measurementOrdere d By: Sveta Macias on 12-29-2024 Hemoglobin (Bld) [Mass/Vol] 12.2 g/dL 12.0-15.0 [facility] MCV (mean corpuscular volume ) determinationOrdered By: Sveta Macias on 12-29-2024 MCV (RBC) [Entitic vol] 101.3 fL High 81-99 [facility] Mean corpuscular hemoglobin (MCH) determinationOrdered By: Sveta Macias on 12-29-2024 MCH (RBC) [Entitic mass] 32.4 pg High 27.0-32.0 [facility] Mean corpuscular hemoglobin concentration (MCHC) determinationOrdered By: Sveta Macias on 12-29-2024 MCHC (RBC) [Mass/Vol] 32.0 g/dL 32-36 [facility] Mean platelet volume determi nationOrdered By: Sveta Macias on 12-29-2024 Platelet mean volume (Bld) [Entitic vol] 10.5 fL 6.2-12.0 [facility] Platelet countOrdered By: Zena Macias on 12-29-2024 Platelets (Bld) [#/Vol] 141 10*3/uL Low 150-450 [facility] Potassium measurement (mass/ volume)Ordered By: Sveta Macias on 12-29-2024 Potassium (Unsp spec) [Mass/Vol] 4.3 mmol/L 3.3-5.1 [facility] RBC Auto (Bld) [#/Vol]Ordere d By: Sveta Macias on 12-29-2024 RBC (Bld) [#/Vol] 3.76 10*6/uL Low 4.2-5.4 [facility] Serum creatinine measurement (mass/volume)Ordered By: Sveta Macias on 12-29-2024 Creatinine [Mass/Vol] 0.37 mg/dL Low 0.70-1.20 [facility] Serum glucose measurement (m ass/volume)Ordered By: Sveta Macias on 12-29-2024 Glucose [Mass/Vol] 76 mg/dL 70-99 [facility] Serum or plasma calcium azael urement (mass/volume)Ordered By: Sveta Macias on 12-29-2024 Calcium [Mass/Vol] 9.0 mg/dL 7.6-11.0 [facility] Serum or plasma urea nitroge n measurement (mass/volume)Ordered By: Sveta Macias on 12-29-2024 Urea nitrogen [Mass/Vol] 15 mg/dL 4-19 [facility] Sodium levelOrdered By: aRkel Macias on 12-29-2024 Sodium [Moles/Vol] 141 mmol/L 133-145 [facility] White blood cell (WBC) count Ordered By: Sveta Macias on 12-29-2024 WBC (Bld) [#/Vol] 7.2 10*3/uL 4.4-11.0 [facility] Bedside Glucoseon 12-28-2024 FINGERSTICK GLU 116 mg/dL High 74-106 [facility] Comment on above: Result Comment: AJIT EDENT OF PATIENT CARE PER NURSING PROTOCOL Performed By: #### L 501.080 ####[facility] [address] [place], [address] [facility] deOrdered By: Sveta Macias on 12-28-2024 Glucose [Mass/Vol] 116 mg/dL High 74-106 [facility] Comment on above: MANAGEMENT OF PATIEN T CARE PER NURSING PROTOCOL Basic Metabolic Profile (BMP )on 12-27-2024 BUN/CRE 57.5 RATIO High 10-20 [facility] Comment on above: Performed By: #### L 100.0500, L500.2500 ####[facility] [address] [place], [address] Calcium [Mass/Vol] 8.7 mg/dL Normal 7.6-11.0 [facility] Comment on above: Performed By: #### L 100.0500, L500.2500 ####[facility] [address] [place], [address] Chloride [Moles/Vol] 109 mmol/L High 98-108 [facility] Comment on above: Performed By: #### L 100.0500, L500.2500 ####[facility] [address] [place], [address] CO2 [Moles/Vol] 28.4 mmol/L Normal 21.0-32.0 [facility] Comment on above: Performed By: #### L 100.0500, L500.2500 ####[facility] [address] [place], [address] Creatinine [Mass/Vol] 0.39 mg/dL Low 0.70-1.20 [facility] Comment on above: Performed By: #### L 100.0500, L500.2500 ####[facility] [address] [place], [address] ECRCL 44.90 ml/min Low 50-250 [facility] Comment on above: Performed By: #### L 100.0500, L500.2500 ####[facility] [address] [place], [address] GAP 4 Low 5-15 [facility] Comment on above: Performed By: #### L 100.0500, L500.2500 ####[facility] [address] [place], [address] GFR/1.73 sq M.predicted among non-blacks MDRD (S/P/Bld) [Vol rate/Area] 99 mL/min/{1.73_m2} Normal >60 [facility] Comment on above: Result Comment: mL/m in/1.73m2 CKD-EPI Creatinine Equation (2020) Performed By: #### L 100.0500, L500.2500 ####[facility] [address] [place], [address] Glucose [Mass/Vol] 73 mg/dL Normal 70-99 [facility] Comment on above: Performed By: #### L 100.0500, L500.2500 ####[facility] [address] [place], [address] Potassium [Moles/Vol] 4.1 mmol/L Normal 3.3-5.1 [facility] Comment on above: Performed By: #### L 100.0500, L500.2500 ####[facility] [address] [place], [address] Sodium [Moles/Vol] 142 mmol/L Normal 133-145 [facility] Comment on above: Performed By: #### L 100.0500, L500.2500 ####[facility] [address] [place], [address] Urea nitrogen [Mass/Vol] 22 mg/dL High 4-19 [facility] Comment on above: Performed By: #### L 100.0500, L500.2500 ####[facility] [address] [place], [address] Bedside Glucoseon 12-27-2024 FINGERSTICK GLU 134 mg/dL High 74-106 [facility] Comment on above: Result Comment: AJIT ARMENDARIZ OF PATIENT CARE PER NURSING PROTOCOL Performed By: #### L 501.080 ####[facility] [address] [place], [address] CBC-Complete Blood Cnt No Di ffon 12-27-2024 Erythrocyte distribution width (RBC) [Ratio] 13.9 % Normal 11.6-14.6 [facility] Comment on above: Performed By: #### L 100.0500, L500.2500 ####[facility] [address] [place], [address] Hematocrit (Bld) [Volume fraction] 37.9 % Normal 37-47 [facility] Comment on above: Performed By: #### L 100.0500, L500.2500 ####[facility] [address] [place], [address] Hemoglobin (Bld) [Mass/Vol] 12.1 g/dL Normal 12.0-15.0 [facility] Comment on above: Performed By: #### L 100.0500, L500.2500 ####[facility] [address] [place], [address] MCH (RBC) [Entitic mass] 32.4 pg High 27.0-32.0 [facility] Comment on above: Performed By: #### L 100.0500, L500.2500 ####[facility] [address] [place], [address] MCHC (RBC) [Mass/Vol] 31.9 g/dL Low 32-36 [facility] Comment on above: Performed By: #### L 100.0500, L500.2500 ####[facility] [address] [place], [address] MCV (RBC) [Entitic vol] 101.6 fL High 81-99 [facility] Comment on above: Performed By: #### L 100.0500, L500.2500 ####[facility] [address] [place], [address] Platelet mean volume (Bld) [Entitic vol] 10.4 fL Normal 6.2-12.0 [facility] Comment on above: Performed By: #### L 100.0500, L500.2500 ####[facility] [address] [place], [address] Platelets (Bld) [#/Vol] 152 10*3/uL Normal 150-450 [facility] Comment on above: Performed By: #### L 100.0500, L500.2500 ####[facility] [address] [place], [address] RBC (Bld) [#/Vol] 3.73 10*6/uL Low 4.2-5.4 [facility] Comment on above: Performed By: #### L 100.0500, L500.2500 ####[facility] [address] [place], [address] RDW SD 51.7 fl High 35.1-43.9 [facility] Comment on above: Performed By: #### L 100.0500, L500.2500 ####[facility] [address] [place], [address] WBC (Bld) [#/Vol] 7.9 10*3/uL Normal 4.4-11.0 [facility] Comment on above: Performed By: #### L 100.0500, L500.2500 ####[facility] [address] [place], [address] Electrocardiogram reportOrde red By: Nieves Sheth on 12-27-2024 EKG study [facility] [address] [place] [address] 12 Lead EKG 12/24/24 1619 MR#: [id number] Acct: [id number] Name: LESLI ROSALES Rep #:[id number] : 1940 84 From: Nieves carroll MD Attending Dr: Dr. Sveta Macias, DO Tana covarrubiasus: ADM IN Ordering Dr: Oskar Camargo MD Date: Location: [facility] Sex: F C Admitted: 12/24/24 Test Reason : BACK PAIN Blood Pressure : */* mmHG Vent. Rate : 62 BPM Atrial Rate : * BPM P-R Int : * ms QRS Dur : 80 ms QT Int : 444 ms P-R-T Axes : * 47 -18 degrees QTcB Int : 450 ms Atrial fibrillation Nonspecific T wave abnormality Abnormal ECG Confirmed by Nieves Sheth ([id number]), web editor CHARLA GARIBAY ([id number]) on 12/27/2024 12:06:06 PM Referred By: AR Confirmed By: Nieves Sheth 12/27/24 1206 Date _ Nieves Sheth MD CC: Dr. Oskar Camargo MD; Dr. Sveta Macias DO; SILVIA GUTHRIE ~ Signed [facility] Other Phone: Lumbar Spine 2 or 3 Viewson 12-27-2024 Lumbar Spine 2 or 3 Views Normal [facility] Urine Cultureon 12-27-2024 URC Normal [facility] Comment on above: Performed By: #### M 100.2200, L400.0001 ####[facility] [address] [place], [address] Basic Metabolic Profile (BMP )on 12-26-2024 BUN/CRE 51.7 RATIO High 10-20 [facility] Comment on above: Performed By: #### L 501.2300, L500.2500 ####[facility] [address] [place], [address] Calcium [Mass/Vol] 8.5 mg/dL Normal 7.6-11.0 [facility] Comment on above: Performed By: #### L 501.2300, L500.2500 ####[facility] [address] [place], [address] Chloride [Moles/Vol] 109 mmol/L High 98-108 [facility] Comment on above: Performed By: #### L 501.2300, L500.2500 ####[facility] [address] [place], [address] CO2 [Moles/Vol] 27.8 mmol/L Normal 21.0-32.0 [facility] Comment on above: Performed By: #### L 501.2300, L500.2500 ####[facility] [address] [place], [address] Creatinine [Mass/Vol] 0.44 mg/dL Low 0.70-1.20 [facility] Comment on above: Performed By: #### L 501.2300, L500.2500 ####[facility] [address] [place], [address] ECRCL 44.83 ml/min Low 50-250 [facility] Comment on above: Performed By: #### L 501.2300, L500.2500 ####[facility] [address] [place], [address] GAP 5 Normal 5-15 [facility] Comment on above: Performed By: #### L 501.2300, L500.2500 ####[facility] [address] [place], [address] GFR/1.73 sq M.predicted among non-blacks MDRD (S/P/Bld) [Vol rate/Area] 96 mL/min/{1.73_m2} Normal >60 [facility] Comment on above: Result Comment: mL/m in/1.73m2 CKD-EPI Creatinine Equation (2020) Performed By: #### L 501.2300, L500.2500 ####[facility] [address] [place], [address] Glucose [Mass/Vol] 78 mg/dL Normal 70-99 [facility] Comment on above: Performed By: #### L 501.2300, L500.2500 ####[facility] [address] [place], [address] Potassium [Moles/Vol] 3.7 mmol/L Normal 3.3-5.1 [facility] Comment on above: Performed By: #### L 501.2300, L500.2500 ####[facility] [address] [place], [address] Sodium [Moles/Vol] 142 mmol/L Normal 133-145 [facility] Comment on above: Performed By: #### L 501.2300, L500.2500 ####[facility] [address] [place], [address] Urea nitrogen [Mass/Vol] 23 mg/dL High 4-19 [facility] Comment on above: Performed By: #### L 501.2300, L500.2500 ####[facility] [address] [place], [address] CBC-Complete Blood Cnt No Di ffon 12-26-2024 Erythrocyte distribution width (RBC) [Ratio] 14.2 % Normal 11.6-14.6 [facility] Comment on above: Performed By: #### L 100.0500 ####[facility] [address] [place], [address] Hematocrit (Bld) [Volume fraction] 36.3 % Low 37-47 [facility] Comment on above: Performed By: #### L 100.0500 ####[facility] [address] [place], [address] Hemoglobin (Bld) [Mass/Vol] 11.8 g/dL Low 12.0-15.0 [facility] Comment on above: Performed By: #### L 100.0500 ####[facility] [address] [place], [address] MCH (RBC) [Entitic mass] 32.8 pg High 27.0-32.0 [facility] Comment on above: Performed By: #### L 100.0500 ####[facility] [address] [place], [address] MCHC (RBC) [Mass/Vol] 32.5 g/dL Normal 32-36 [facility] Comment on above: Performed By: #### L 100.0500 ####[facility] [address] [place], [address] MCV (RBC) [Entitic vol] 100.8 fL High 81-99 [facility] Comment on above: Performed By: #### L 100.0500 ####[facility] [address] [place], [address] Platelet mean volume (Bld) [Entitic vol] 10.7 fL Normal 6.2-12.0 [facility] Comment on above: Performed By: #### L 100.0500 ####[facility] [address] [place], [address] Platelets (Bld) [#/Vol] 162 10*3/uL Normal 150-450 [facility] Comment on above: Performed By: #### L 100.0500 ####[facility] [address] [place], [address] RBC (Bld) [#/Vol] 3.60 10*6/uL Low 4.2-5.4 [facility] Comment on above: Performed By: #### L 100.0500 ####[facility] [address] [place], [address] RDW SD 52.7 fl High 35.1-43.9 [facility] Comment on above: Performed By: #### L 100.0500 ####[facility] [address] [place], [address] WBC (Bld) [#/Vol] 8.2 10*3/uL Normal 4.4-11.0 [facility] Comment on above: Performed By: #### L 100.0500 ####[facility] [address] [place], [address] Consultation - Orthopedicson 12-26-2024 Consultation - Orthopedics Normal [facility] Phosphoruson 12-26-2024 Phosphate [Mass/Vol] 3.0 mg/dL Normal 2.7-4.5 [facility] Comment on above: Performed By: #### L 501.2300, L500.2500 ####[facility] [address] [place], [address] Absolute lymphocyte countOrd ered By: Kevin Naidu on 12-25-2024 Lymphocytes Auto (Unsp spec) [#/Vol] 2.31 10*3/uL 0.83-4.51 [facility] Absolute neutrophil countOrd ered By: Kevin Naidu on 12-25-2024 Neutrophils (Bld) [#/Vol] 6.0 10*3/uL 2.0-7.7 [facility] Automated lymphocyte count a s percentage of total leukocytesOrdered By: Kevin Naidu on 12-25-2024 Lymphocytes/100 WBC Auto (Unsp spec) 24.4 % 19-41 [facility] Basophil percentageOrdered B y: Kevin Naidu on 12-25-2024 Basophils/100 WBC (Bld) 0.7 % 0-1 [facility] Bilirubin, totalOrdered By: Kevin Naidu on 12-25-2024 Bilirubin [Mass/Vol] 0.61 mg/dL 0.00-1.30 [facility] CBC W/Diff, Automatedon Absolute Lymph 2.31 X10 3/uL Normal 0.83-4.51 [facility] Comment on above: Performed By: #### L 500.4050, L100.0100, L501.2300 ####[facility] [address] [place], [address] Absolute Neut 6.0 X10 3/uL Normal 2.0-7.7 [facility] Comment on above: Performed By: #### L 500.4050, L100.0100, L501.2300 ####[facility] [address] [place], [address] Basophils/100 WBC (Bld) 0.7 % Normal 0-1 [facility] Comment on above: Performed By: #### L 500.4050, L100.0100, L501.2300 ####[facility] [address] [place], [address] Eosinophils/100 WBC (Bld) 2.6 % Normal 0-5 [facility] Comment on above: Performed By: #### L 500.4050, L100.0100, L501.2300 ####[facility] [address] [place], [address] Erythrocyte distribution width (RBC) [Ratio] 14.3 % Normal 11.6-14.6 [facility] Comment on above: Performed By: #### L 500.4050, L100.0100, L501.2300 ####[facility] [address] [place], [address] Hematocrit (Bld) [Volume fraction] 38.2 % Normal 37-47 [facility] Comment on above: Performed By: #### L 500.4050, L100.0100, L501.2300 ####[facility] [address] [place], [address] Hemoglobin (Bld) [Mass/Vol] 12.4 g/dL Normal 12.0-15.0 [facility] Comment on above: Performed By: #### L 500.4050, L100.0100, L501.2300 ####[facility] [address] [place], [address] IG% 0.300 Normal 0.0-0.9 [facility] Comment on above: Result Comment: IG% - Immature Granulocytes (promyelocytes, myelocytes andmetamyelocytes) > 1% indicates that a LEFT SHIFT is Present. Performed By: #### L 500.4050, L100.0100, L501.2300 ####[facility] [address] [place], [address] Lymphocytes/100 WBC (Bld) 24.4 % Normal 19-41 [facility] Comment on above: Performed By: #### L 500.4050, L100.0100, L501.2300 ####[facility] [address] [place], [address] MCH (RBC) [Entitic mass] 32.5 pg High 27.0-32.0 [facility] Comment on above: Performed By: #### L 500.4050, L100.0100, L501.2300 ####[facility] [address] [place], [address] MCHC (RBC) [Mass/Vol] 32.5 g/dL Normal 32-36 [facility] Comment on above: Performed By: #### L 500.4050, L100.0100, L501.2300 ####[facility] [address] [place], [address] MCV (RBC) [Entitic vol] 100.3 fL High 81-99 [facility] Comment on above: Performed By: #### L 500.4050, L100.0100, L501.2300 ####[facility] [address] [place], [address] Monocytes/100 WBC (Bld) 9.2 % Normal 0-10 [facility] Comment on above: Performed By: #### L 500.4050, L100.0100, L501.2300 ####[facility] [address] [place], [address] Neutrophils/100 WBC (Bld) 62.8 % Normal 47-70 [facility] Comment on above: Performed By: #### L 500.4050, L100.0100, L501.2300 ####[facility] [address] [place], [address] Nucleated RBC (Bld) [#/Vol] 0 10*3/uL Normal 0-5 [facility] Comment on above: Performed By: #### L 500.4050, L100.0100, L501.2300 ####[facility] [address] [place], [address] Platelet mean volume (Bld) [Entitic vol] 10.3 fL Normal 6.2-12.0 [facility] Comment on above: Performed By: #### L 500.4050, L100.0100, L501.2300 ####[facility] [address] [place], [address] Platelets (Bld) [#/Vol] 175 10*3/uL Normal 150-450 [facility] Comment on above: Performed By: #### L 500.4050, L100.0100, L501.2300 ####[facility] [address] [place], [address] RBC (Bld) [#/Vol] 3.81 10*6/uL Low 4.2-5.4 [facility] Comment on above: Performed By: #### L 500.4050, L100.0100, L501.2300 ####[facility] [address] [place], [address] RDW SD 52.2 fl High 35.1-43.9 [facility] Comment on above: Performed By: #### L 500.4050, L100.0100, L501.2300 ####[facility] [address] [place], [address] WBC (Bld) [#/Vol] 9.5 10*3/uL Normal 4.4-11.0 [facility] Comment on above: Performed By: #### L 500.4050, L100.0100, L501.2300 ####[facility] [address] [place], [address] Comprehensive Metabolic Prof ilon 12-25-2024 Albumin [Mass/Vol] 2.6 g/dL Low 3.4-4.8 [facility] Comment on above: Result Comment: DUP ORDER. UA COMPLETE Performed By: #### L 500.4050, L100.0100, L501.2300 ####[facility] [address] [place], [address] Albumin/Globulin [Mass ratio] 1.1 {ratio} Normal 0.9-2.4 [facility] Comment on above: Result Comment: DUP ORDER. UA COMPLETE Performed By: #### L 500.4050, L100.0100, L501.2300 ####[facility] [address] [place], [address] ALK PHOS 127 U/L High 35-104 [facility] Comment on above: Result Comment: DUP ORDER. UA COMPLETE Performed By: #### L 500.4050, L100.0100, L501.2300 ####[facility] [address] [place], [address] ALT [Catalytic activity/Vol] 16 U/L Normal <=34 [facility] Comment on above: Result Comment: DUP ORDER. UA COMPLETE Performed By: #### L 500.4050, L100.0100, L501.2300 ####[facility] [address] [place], [address] AST [Catalytic activity/Vol] 28 U/L Normal <=31 [facility] Comment on above: Result Comment: DUP ORDER. UA COMPLETE Performed By: #### L 500.4050, L100.0100, L501.2300 ####[facility] [address] [place], [address] Bilirubin [Mass/Vol] 0.61 mg/dL Normal 0.00-1.30 [facility] Comment on above: Result Comment: DUP ORDER. UA COMPLETE Performed By: #### L 500.4050, L100.0100, L501.2300 ####[facility] [address] [place], [address] BUN/CRE 41.0 RATIO High 10-20 [facility] Comment on above: Result Comment: DUP ORDER. UA COMPLETE Performed By: #### L 500.4050, L100.0100, L501.2300 ####[facility] [address] [place], [address] Calcium [Mass/Vol] 8.4 mg/dL Normal 7.6-11.0 [facility] Comment on above: Result Comment: DUP ORDER. UA COMPLETE Performed By: #### L 500.4050, L100.0100, L501.2300 ####[facility] [address] [place], [address] Chloride [Moles/Vol] 109 mmol/L High 98-108 [facility] Comment on above: Result Comment: DUP ORDER. UA COMPLETE Performed By: #### L 500.4050, L100.0100, L501.2300 ####[facility] [address] [place], [address] CO2 [Moles/Vol] 26.1 mmol/L Normal 21.0-32.0 [facility] Comment on above: Result Comment: DUP ORDER. UA COMPLETE Performed By: #### L 500.4050, L100.0100, L501.2300 ####[facility] [address] [place], [address] Creatinine [Mass/Vol] 0.50 mg/dL Low 0.70-1.20 [facility] Comment on above: Result Comment: DUP ORDER. UA COMPLETE Performed By: #### L 500.4050, L100.0100, L501.2300 ####[facility] [address] [place], [address] ECRCL 43.99 ml/min Low 50-250 [facility] Comment on above: Result Comment: DUP ORDER. UA COMPLETE Performed By: #### L 500.4050, L100.0100, L501.2300 ####[facility] [address] [place], [address] GAP 5 Normal 5-15 [facility] Comment on above: Result Comment: DUP ORDER. UA COMPLETE Performed By: #### L 500.4050, L100.0100, L501.2300 ####[facility] [address] [place], [address] GFR/1.73 sq M.predicted among non-blacks MDRD (S/P/Bld) [Vol rate/Area] 93 mL/min/{1.73_m2} Normal >60 [facility] Comment on above: Result Comment: mL/m in/1.73m2 CKD-EPI Creatinine Equation (2020) Performed By: #### L 500.4050, L100.0100, L501.2300 ####[facility] [address] [place], [address] Globulin (S) [Mass/Vol] 2.3 g/dL Normal 2.2-4.2 [facility] Comment on above: Result Comment: DUP ORDER. UA COMPLETE Performed By: #### L 500.4050, L100.0100, L501.2300 ####[facility] [address] [place], [address] Glucose [Mass/Vol] 71 mg/dL Normal 70-99 [facility] Comment on above: Result Comment: DUP ORDER. UA COMPLETE Performed By: #### L 500.4050, L100.0100, L501.2300 ####[facility] [address] [place], [address] Potassium [Moles/Vol] 4.1 mmol/L Normal 3.3-5.1 [facility] Comment on above: Result Comment: DUP ORDER. UA COMPLETE Performed By: #### L 500.4050, L100.0100, L501.2300 ####[facility] [address] [place], [address] Sodium [Moles/Vol] 141 mmol/L Normal 133-145 [facility] Comment on above: Result Comment: DUP ORDER. UA COMPLETE Performed By: #### L 500.4050, L100.0100, L501.2300 ####[facility] [address] [place], [address] T PROT 4.9 g/dL Low 5.9-8.4 [facility] Comment on above: Result Comment: DUP ORDER. UA COMPLETE Performed By: #### L 500.4050, L100.0100, L501.2300 ####[facility] [address] [place], [address] Urea nitrogen [Mass/Vol] 21 mg/dL High 4-19 [facility] Comment on above: Result Comment: DUP ORDER. UA COMPLETE Performed By: #### L 500.4050, L100.0100, L501.2300 ####[facility] [address] [place], [address] Eosinophil percentageOrdered By: Kevin Naidu on 12-25-2024 Eosinophils/100 WBC (Bld) 2.6 % 0-5 [facility] Folate [Moles/volume] in Ser um or PlasmaOrdered By: Kevin Naidu on 12-25-2024 Folate [Moles/Vol] 16.70 ng/mL 4.60-34.80 [facility] Comment on above: Hemolysis, Results w ill be affected, Requires Recollection. Folates,Serum (Folic Acid)on 12-25-2024 FOLATES,SERUM 16.70 ng/mL Normal 4.60-34.80 [facility] Comment on above: Result Comment: Hemo lysis, Results will be affected, Requires Recollection. Performed By: #### L 501.5200, L501.9520, L506.0200 ####[facility] [address] [place], [place], [address] Immature granulocytes/100 WB C Auto (Bld)Ordered By: Kevin Naidu on 12-25-2024 Immature granulocytes/100 WBC (Bld) 0.300 % 0.0-0.9 [facility] Comment on above: IG% - Immature Granu locytes (promyelocytes, myelocytes and metamyelocytes) > 1% indicates that a LEFT SHIFT is Present. Laboratory - Chemistry and C hemistry - challengeOrdered By: Kevin Naidu on 12-25-2024 AST [Catalytic activity/Vol] 28 U/L <32 [facility] Magnetic resonance imaging r eportOrdered By: Goldy Estrella on 12-25-2024 Study report [facility] Services [address] [place], [place] [address] Spine Lumbar (Routine) MR#: [id number] Acct: [id number] Name: LESLI ROSALES Rep #: [id number] : 1940 F 84 From: Susan Estrella MD PCP: SILVIA GUTHRIE Status: ADM IN Study:Spine Lumbar (Routine) Date of Exam: 12/24/24 Exam# [id number] Ordering Dr: Kevin Mathur DO PROCEDURE: SPINE LUMBAR (ROUTINE), 12/25/2024 REASON FOR EXAM: SUSPECTED L2-L3 COMPRESSION FRACTURE ON CT. TECHNIQUE: Multisequence multiplanar MR of the lumbar spine was performed without IV contrast. COMPARISON: 12/24/2024 FINDINGS: For the purposes of this report, the last well-formed disc space will be assigned L5-S1. Redemonstrated acute L2 burst fracture with roughly 40% loss of central vertebral body height and mild retropulsion resulting in mild focal spinal canal stenosis. Associated fluid signal/edema within the vertebral body. There is diffuse loss of normal T1 signal throughout the L2 vertebral body, sparing the posterior elements. Suspect tiny ventral epidural hematomas up to 5 mm in thickness. Trace chronic appearing central L3 vertebral body height loss. Remaining vertebral body heights are preserved. Focal marrow edema along the superior L5 endplate anteriorly could reflect degenerative type marrow signal changes or perhaps an additional nondisplaced fracture. Heterogeneous background marrow signal with favored degenerative type marrow signal changes at multiple additional levels. Redemonstrated grade 1/2 likely degenerative anterolisthesis of approximately 9 mm at L5-S1. Trace likely degenerative retrolisthesis at T12-L1 and trace anterolisthesis at L4-L5 are also similar. Conus medullaris terminates normally at the L2 inferior endplate level. Unremarkable appearance of the cauda equina. L1-2: Mild focal spinal canal stenosis at L2 related to burst fracture as above. No significant foraminal stenosis.. L2-3: No significant spinal canal or foraminal stenosis.. L3-4: Mild diffuse disc bulging. No significant spinal canal stenosis. Mild bilateral foraminal stenosis. Mild facet arthropathy.. L4-5: Mild diffuse disc bulging. No significant focal spinal canal stenosis. Facet arthropathy. No significant foraminal stenosis.. L5-S1: Virtually complete loss of disc height with disc uncovering related to anterolisthesis as above. No significant spinal canal stenosis. Mild bilateral foraminal stenoses.. Facet arthropathy. Other: L5 laminectomy with operative changes in the posterior paraspinal soft tissues. Minimally enlarged LEFT para-aortic node, 11 mm short axis. MRI/Spine Lumbar (Routine) IMPRESSION: 1. Redemonstrated L2 burst fracture with mild retropulsion resulting in mild focal spinal canal stenosis. Tiny posterior epidural hematoma suspected. 2. Heterogeneous marrow signal with diffuse marrow replacement within the L2 vertebral body, perhaps slightly greater than would be expected to represent edema related to fracture. Although incompletely evaluated in the absence of IV contrast, this suggest possible pathologic fracture with underlying infiltrative process/lesion. Correlate with medical history and recommend outpatient follow-up MRI lumbar spine with and without IV contrast for complete evaluation. Some delay to allow at least partial resolution of presumed posttraumatic edema would be helpful in this regard. Fewother areas of marrow signal abnormality are identified, favored degenerative and/or related to nondisplaced fracture, most notably at the L5 superior endplate. 3. Minimally enlarged LEFT periaortic node, nonspecific and potentially reactivein the absence of known malignancy. Correlate with medical history and recommend attention on above follow-up. 4. Multilevel spondylosis without high-grade spinal canal or foraminal stenosis identified. 5. Additional description as above. Reading Location: [id number] CC: Dr. Kevin Caballero, DO; SILVIA GUTHRIE ~ [employer]: Signed [facility] Monocyte percentageOrdered B y: Kevin Naidu on 12-25-2024 Monocytes/100 WBC (Bld) 9.2 % 0-10 [facility] Neutrophil percentageOrdered By: Kevin Naidu on 12-25-2024 Neutrophils/100 WBC (Bld) 62.8 % 47-70 [facility] Nucleated red blood cell per centageOrdered By: Kevin Naidu on 12-25-2024 Nucleated RBC/100 WBC (Bld) [Ratio] 0 % 0-5 [facility] Phosphoruson 12-25-2024 Phosphate [Mass/Vol] 3.2 mg/dL Normal 2.7-4.5 [facility] Comment on above: Order Comment: DUP O RDER. UA COMPLETE Result Comment: DUP ORDER. UA COMPLETE Performed By: #### L 500.4050, L100.0100, L501.2300 ####[facility] [address] [place], [place], [id number] Serum globulin measurementOr dered By: Kevin Naidu on 12-25-2024 Globulin (S) [Mass/Vol] 2.3 g/dL 2.2-4.2 [facility] Serum or plasma alanine colbert otransferase (ALT) measurementOrdered By: Kevin Naidu on 12-25-2024 ALT [Catalytic activity/Vol] 16 U/L <35 [facility] Serum or plasma albumin azael urement (mass/volume)Ordered By: Kevin Naidu on 12-25-2024 Albumin [Mass/Vol] 2.6 g/dL Low 3.4-4.8 [facility] Serum or plasma albumin/glob ulin mass ratioOrdered By: Kevin Naidu on 12-25-2024 Albumin/Globulin [Mass ratio] 1.1 {ratio} 0.9-2.4 [facility] Serum or plasma alkaline selvin sphatase measurementOrdered By: Kevin Naidu on 12-25-2024 ALP [Catalytic activity/Vol] 127 U/L High 35-104 [facility] Total proteinOrdered By: Spenser Naidu on 12-25-2024 Protein [Mass/Vol] 4.9 g/dL Low 5.9-8.4 [facility] Vitamin D,25 Hydroxyon 12-25 Vitamin D 25-OH 33.9 ng/mL Normal 30-100 [facility] Comment on above: Result Comment: Estephania min D StatusDeficiency: <20 ng/mL (50nmol/L)Insufficiency: 20-30 ng/mL (50-75 nmol/L)Sufficiency: 30-100 ng/mL (75-250 nmol/L)Toxicity: >100 ng/mL (>250 nmol/L) Performed By: #### L 506.1001 ####[facility] [address] [place], [address] 12 Lead EKGon 12-24-2024 12 Lead EKG Normal [facility] Absolute neutrophil countOrd ered By: Oskar Camargo on 12-24-2024 Neutrophils (Bld) [#/Vol] 8.2 10*3/uL High 2.0-7.7 [facility] Amorphous sediment detection in urine sediment by light microscopyOrdered By: Oskar Camargo on 12-24-2024 Amorphous sediment LM Ql (Urine sed) 3+ [facility] Anion gap in Serum or Plasma Ordered By: Oskar Camargo on 12-24-2024 Anion gap [Moles/Vol] 7 mmol/L 5-15 [facility] BUN/creatinine ratioOrdered By: Oskar Camargo on 12-24-2024 Urea nitrogen/Creatinine [Mass ratio] 35.9 mg/mg High 10-20 [facility] Basophil percentageOrdered B y: Oskar Camargo on 12-24-2024 Basophils/100 WBC (Bld) 0.5 % 0-1 [facility] Bilirubin Test strip Ql (U)O rdered By: Oskar Camargo on 12-24-2024 Bilirubin Ql (U) 1 mg/dL High Negative [facility] Comment on above: COLOR OF URINE MAY A FFECT DIPSTICK RESULTS. Bilirubin, totalOrdered By: Oskar Camargo on 12-24-2024 Bilirubin [Mass/Vol] 0.71 mg/dL 0.00-1.30 [facility] CBC W/Diff, Automatedon Absolute Lymph 2.43 X10 3/uL Normal 0.83-4.51 [facility] Comment on above: Performed By: #### L 500.4050, L100.0100 ####[facility] [address] [place], [address] Absolute Neut 8.2 X10 3/uL High 2.0-7.7 [facility] Comment on above: Performed By: #### L 500.4050, L100.0100 ####[facility] [address] [place], [address] Basophils/100 WBC (Bld) 0.5 % Normal 0-1 [facility] Comment on above: Performed By: #### L 500.4050, L100.0100 ####[facility] [address] [place], [address] Eosinophils/100 WBC (Bld) 1.2 % Normal 0-5 [facility] Comment on above: Performed By: #### L 500.4050, L100.0100 ####[facility] [address] [place], [address] Erythrocyte distribution width (RBC) [Ratio] 14.4 % Normal 11.6-14.6 [facility] Comment on above: Performed By: #### L 500.4050, L100.0100 ####[facility] [address] [place], [address] Hematocrit (Bld) [Volume fraction] 43.2 % Normal 37-47 [facility] Comment on above: Performed By: #### L 500.4050, L100.0100 ####[facility] [address] [place], [address] Hemoglobin (Bld) [Mass/Vol] 14.0 g/dL Normal 12.0-15.0 [facility] Comment on above: Performed By: #### L 500.4050, L100.0100 ####[facility] [address] [place], [address] IG% 0.500 Normal 0.0-0.9 [facility] Comment on above: Result Comment: IG% - Immature Granulocytes (promyelocytes, myelocytes andmetamyelocytes) > 1% indicates that a LEFT SHIFT is Present. Performed By: #### L 500.4050, L100.0100 ####[facility] [address] [place], [address] Lymphocytes/100 WBC (Bld) 20.6 % Normal 19-41 [facility] Comment on above: Performed By: #### L 500.4050, L100.0100 ####[facility] [address] [place], [address] MCH (RBC) [Entitic mass] 32.1 pg High 27.0-32.0 [facility] Comment on above: Performed By: #### L 500.4050, L100.0100 ####[facility] [address] [place], [address] MCHC (RBC) [Mass/Vol] 32.4 g/dL Normal 32-36 [facility] Comment on above: Performed By: #### L 500.4050, L100.0100 ####[facility] [address] [place], [address] MCV (RBC) [Entitic vol] 99.1 fL High 81-99 [facility] Comment on above: Performed By: #### L 500.4050, L100.0100 ####[facility] [address] [place], [address] Monocytes/100 WBC (Bld) 7.6 % Normal 0-10 [facility] Comment on above: Performed By: #### L 500.4050, L100.0100 ####[facility] [address] [place], [address] Neutrophils/100 WBC (Bld) 69.6 % Normal 47-70 [facility] Comment on above: Performed By: #### L 500.4050, L100.0100 ####[facility] [address] [place], [address] Nucleated RBC (Bld) [#/Vol] 0 10*3/uL Normal 0-5 [facility] Comment on above: Performed By: #### L 500.4050, L100.0100 ####[facility] [address] [place], [address] Platelet mean volume (Bld) [Entitic vol] 10.4 fL Normal 6.2-12.0 [facility] Comment on above: Performed By: #### L 500.4050, L100.0100 ####[facility] [address] [place], [address] Platelets (Bld) [#/Vol] 212 10*3/uL Normal 150-450 [facility] Comment on above: Performed By: #### L 500.4050, L100.0100 ####[facility] [address] [place], [address] RBC (Bld) [#/Vol] 4.36 10*6/uL Normal 4.2-5.4 [facility] Comment on above: Performed By: #### L 500.4050, L100.0100 ####[facility] [address] [place], [address] RDW SD 53.0 fl High 35.1-43.9 [facility] Comment on above: Performed By: #### L 500.4050, L100.0100 ####[facility] [address] [place], [address] WBC (Bld) [#/Vol] 11.8 10*3/uL High 4.4-11.0 [facility] Comment on above: Performed By: #### L 500.4050, L100.0100 ####[facility] [address] [place], [address] Calcium oxalate crystals det ection in urine sediment by light microscopyOrdered By: Oskar Camargo on 12-24-2024 Calcium oxalate crystals LM Ql (Urine sed) 2+ /hpf [facility] Carbon dioxide, total [Moles /volume] in Central venous bloodOrdered By: Oskar Camargo on 12-24-2024 CO2 [Moles/Vol] 27.7 mmol/L 21.0-32.0 [facility] Chest 1 View (Portable)on Chest 1 View (Portable) Normal [facility] Chloride assayOrdered By: Bessie Camargo on 12-24-2024 Chloride [Moles/Vol] 106 mmol/L 98-108 [facility] Comprehensive Metabolic Prof ilon 12-24-2024 Albumin [Mass/Vol] 3.1 g/dL Low 3.4-4.8 [facility] Comment on above: Performed By: #### L 500.4050, L100.0100 ####[facility] [address] [place], [address] Albumin/Globulin [Mass ratio] 1.1 {ratio} Normal 0.9-2.4 [facility] Comment on above: Performed By: #### L 500.4050, L100.0100 ####[facility] [address] [place], [address] ALK PHOS 157 U/L High 35-104 [facility] Comment on above: Performed By: #### L 500.4050, L100.0100 ####[facility] [address] [place], [address] ALT [Catalytic activity/Vol] 20 U/L Normal <=34 [facility] Comment on above: Performed By: #### L 500.4050, L100.0100 ####[facility] [address] [place], [address] AST [Catalytic activity/Vol] 32 U/L Normal <=31 [facility] Comment on above: Performed By: #### L 500.4050, L100.0100 ####[facility] [address] [place], [address] Bilirubin [Mass/Vol] 0.71 mg/dL Normal 0.00-1.30 [facility] Comment on above: Performed By: #### L 500.4050, L100.0100 ####[facility] [address] [place], [address] BUN/CRE 35.9 RATIO High 10-20 [facility] Comment on above: Performed By: #### L 500.4050, L100.0100 ####[facility] [address] [place], [address] Calcium [Mass/Vol] 9.2 mg/dL Normal 7.6-11.0 [facility] Comment on above: Performed By: #### L 500.4050, L100.0100 ####[facility] [address] [place], [address] Chloride [Moles/Vol] 106 mmol/L Normal 98-108 [facility] Comment on above: Performed By: #### L 500.4050, L100.0100 ####[facility] [address] [place], [address] CO2 [Moles/Vol] 27.7 mmol/L Normal 21.0-32.0 [facility] Comment on above: Performed By: #### L 500.4050, L100.0100 ####[facility] [address] [place], [address] Creatinine [Mass/Vol] 0.65 mg/dL Low 0.70-1.20 [facility] Comment on above: Performed By: #### L 500.4050, L100.0100 ####[facility] [address] [place], [address] ECRCL 44.70 ml/min Low 50-250 [facility] Comment on above: Performed By: #### L 500.4050, L100.0100 ####[facility] [address] [place], [address] GAP 7 Normal 5-15 [facility] Comment on above: Performed By: #### L 500.4050, L100.0100 ####[facility] [address] [place], [address] GFR/1.73 sq M.predicted among non-blacks MDRD (S/P/Bld) [Vol rate/Area] 87 mL/min/{1.73_m2} Normal >60 [facility] Comment on above: Result Comment: mL/m in/1.73m2 CKD-EPI Creatinine Equation (2020) Performed By: #### L 500.4050, L100.0100 ####[facility] [address] [place], [address] Globulin (S) [Mass/Vol] 2.9 g/dL Normal 2.2-4.2 [facility] Comment on above: Performed By: #### L 500.4050, L100.0100 ####[facility] [address] [place], [address] Glucose [Mass/Vol] 106 mg/dL High 70-99 [facility] Comment on above: Performed By: #### L 500.4050, L100.0100 ####[facility] [address] [place], [address] Potassium [Moles/Vol] 3.8 mmol/L Normal 3.3-5.1 [facility] Comment on above: Performed By: #### L 500.4050, L100.0100 ####[facility] [address] [place], [address] Sodium [Moles/Vol] 141 mmol/L Normal 133-145 [facility] Comment on above: Performed By: #### L 500.4050, L100.0100 ####[facility] [address] [place], [address] T PROT 5.9 g/dL Normal 5.9-8.4 [facility] Comment on above: Performed By: #### L 500.4050, L100.0100 ####[facility] [address] [place], [address] Urea nitrogen [Mass/Vol] 23 mg/dL High 4-19 [facility] Comment on above: Performed By: #### L 500.4050, L100.0100 ####[facility] [address] [place], [address] Emergency Department Summary on 12-24-2024 Emergency Department Summary Normal [facility] Eosinophil percentageOrdered By: Oskar Camargo on 12-24-2024 Eosinophils/100 WBC (Bld) 1.2 % 0-5 [facility] Erythrocyte distribution wid th (RBC) [Ratio]Ordered By: Oskar Camargo on 12-24-2024 Erythrocyte distribution width (RBC) [Entitic vol] 53.0 fL High 35.1-43.9 [facility] Erythrocyte distribution wid th ratioOrdered By: Oskar Camargo on 12-24-2024 Erythrocyte distribution width (RBC) [Ratio] 14.4 % 11.6-14.6 [facility] Estimation of creatinine ema aranceOrdered By: Oskar Camargo on 12-24-2024 Estimated Creatinine Clearance Calc 44.70 ml/min Low 50-250 [facility] GFR/1.73 sq M.predicted lucinda g non-blacks MDRD (S/P/Bld) [Vol rate/Area]Ordered By: Oskar Camargo on 12-24-2024 Estimated GFR (MDRD) Non-Af Amer 87 >60 [facility] Comment on above: mL/min/1.73m2 CKD-EP I Creatinine Equation (2020) H AND P Exam - Hospitaliston 12-24-2024 H&P Exam - Hospitalist Normal [facility] Hematocrit Auto (Bld) [Volum e fraction]Ordered By: Oskar Camargo on 12-24-2024 Hematocrit (Bld) [Volume fraction] 43.2 % 37-47 [facility] Hemoglobin measurementOrdere d By: Oskar Camargo on 12-24-2024 Hemoglobin (Bld) [Mass/Vol] 14.0 g/dL 12.0-15.0 [facility] Immature granulocytes/100 WB C Auto (Bld)Ordered By: Oskar Camargo on 12-24-2024 Immature granulocytes/100 WBC (Bld) 0.500 % 0.0-0.9 [facility] Comment on above: IG% - Immature Granu locytes (promyelocytes, myelocytes and metamyelocytes) > 1% indicates that a LEFT SHIFT is Present. Ketones Test strip Ql (U)Ord ered By: Oskar Camargo on 12-24-2024 Ketones Ql (U) 5 mg/dl High Negative [facility] Laboratory - Chemistry and C hemistry - challengeOrdered By: Oskar Camargo on 12-24-2024 AST [Catalytic activity/Vol] 32 U/L <32 [facility] Lymphocytes Auto (Unsp spec) [#/Vol]Ordered By: Oskar Camargo on 12-24-2024 Lymphocytes (Bld) [#/Vol] 2.43 10*3/uL 0.83-4.51 [facility] Lymphocytes/100 WBC Auto (Un sp spec)Ordered By: Oskar Camargo on 12-24-2024 Lymphocytes/100 WBC (Bld) 20.6 % 19-41 [facility] MCV (mean corpuscular volume ) determinationOrdered By: Oskar Camargo on 12-24-2024 MCV (RBC) [Entitic vol] 99.1 fL High 81-99 [facility] Magnesiumon 12-24-2024 Magnesium [Mass/Vol] 2.1 mg/dL Normal 1.5-2.2 [facility] Comment on above: Performed By: #### L 501.5200, L501.9520, L506.0200 ####[facility] [address] [place], [address] Magnesium measurement (mass/ volume)Ordered By: Kevin Naidu on 12-24-2024 Magnesium (Unsp spec) [Mass/Vol] 2.1 mg/dL 1.5-2.2 [facility] Mean corpuscular hemoglobin (MCH) determinationOrdered By: Oskar Camargo on 12-24-2024 MCH (RBC) [Entitic mass] 32.1 pg High 27.0-32.0 [facility] Mean corpuscular hemoglobin concentration (MCHC) determinationOrdered By: Oskar Camargo on 12-24-2024 MCHC (RBC) [Mass/Vol] 32.4 g/dL 32-36 [facility] Mean platelet volume determi nationOrdered By: Oskar Camargo on 12-24-2024 Platelet mean volume (Bld) [Entitic vol] 10.4 fL 6.2-12.0 [facility] Microscopic analysis of urin e for red blood cells (RBC)Ordered By: Oskar Camargo on 12-24-2024 Microscopic analysis of urine for red blood cells (RBC) 0-5 SEEN /hpf 0-5 [facility] Monocyte percentageOrdered B y: Oskar Camargo on 12-24-2024 Monocytes/100 WBC (Bld) 7.6 % 0-10 [facility] Mucus LM Ql (Urine sed)Order ed By: Oskar Camargo on 12-24-2024 Mucus Ql (Urine sed) 0 SEEN /hpf [facility] Neutrophil percentageOrdered By: Oskar Camargo on 12-24-2024 Neutrophils/100 WBC (Bld) 69.6 % 47-70 [facility] Nitrite Test strip Ql (U)Ord ered By: Oskar Camargo on 12-24-2024 Nitrite Ql (U) Negative Negative [facility] Nucleated red blood cell per centageOrdered By: Oskar Camargo on 12-24-2024 Nucleated RBC/100 WBC (Bld) [Ratio] 0 % 0-5 [facility] Platelet countOrdered By: Bessie Camargo on 12-24-2024 Platelets (Bld) [#/Vol] 212 10*3/uL 150-450 [facility] Potassium (Unsp spec) [Mass/ Vol]Ordered By: Oskar Camargo on 12-24-2024 Potassium [Moles/Vol] 3.8 mmol/L 3.3-5.1 [facility] Protein Test strip Ql (U)Ord ered By: Oskar Camargo on 12-24-2024 Protein Ql (U) 30 mg/dl High Negative [facility] RBC Auto (Bld) [#/Vol]Ordere d By: Oskar Camargo on 12-24-2024 RBC (Bld) [#/Vol] 4.36 10*6/uL 4.2-5.4 [facility] Serum creatinine measurement (mass/volume)Ordered By: Oskar Camargo on 12-24-2024 Creatinine [Mass/Vol] 0.65 mg/dL Low 0.70-1.20 [facility] Serum globulin measurementOr dered By: Oskar Camargo on 12-24-2024 Globulin (S) [Mass/Vol] 2.9 g/dL 2.2-4.2 [facility] Serum glucose measurement (m ass/volume)Ordered By: Oskar Camargo on 12-24-2024 Glucose [Mass/Vol] 106 mg/dL High 70-99 [facility] Serum or plasma alanine colbert otransferase (ALT) measurementOrdered By: Oskar Camargo on 12-24-2024 ALT [Catalytic activity/Vol] 20 U/L <35 [facility] Serum or plasma albumin azael urement (mass/volume)Ordered By: Oskar Camargo on 12-24-2024 Albumin [Mass/Vol] 3.1 g/dL Low 3.4-4.8 [facility] Serum or plasma albumin/glob ulin mass ratioOrdered By: Oskar Camargo on 12-24-2024 Albumin/Globulin [Mass ratio] 1.1 {ratio} 0.9-2.4 [facility] Serum or plasma alkaline selvin sphatase measurementOrdered By: Oskar Camargo on 12-24-2024 ALP [Catalytic activity/Vol] 157 U/L High 35-104 [facility] Serum or plasma calcium azael urement (mass/volume)Ordered By: Oskar Camargo on 12-24-2024 Calcium [Mass/Vol] 9.2 mg/dL 7.6-11.0 [facility] Serum or plasma urea nitroge n measurement (mass/volume)Ordered By: Oskar Camargo on 12-24-2024 Urea nitrogen [Mass/Vol] 23 mg/dL High 4-19 [facility] Sodium levelOrdered By: Oskar Camargo on 12-24-2024 Sodium [Moles/Vol] 141 mmol/L 133-145 [facility] Spine Lumbar (Routine)on Spine Lumbar (Routine) Normal [facility] Spine Lumbar without Contras ton 12-24-2024 Spine Lumbar without Contrast Normal [facility] Squamous epithelial cells de tection in urine sediment by light microscopyOrdered By: Oskar Camargo on 12-24-2024 Epithelial cells.squamous LM Ql (Urine sed) 5-10 SEEN /hpf 5-10 [facility] TSH DL <= 0.005 mIU/L QnOrde red By: Kevin Naidu on 12-24-2024 TSH Qn 1.160 uIU/mL 0.300-4.20 0 [facility] Thyroid Stim Hormone (TSH)on 12-24-2024 TSH 1.160 uIU/mL Normal 0.300-4.20 0 [facility] Comment on above: Performed By: #### L 501.5200, L501.9520, L506.0200 ####[facility] [address] [place], [address] Total proteinOrdered By: Tri Camargo on 12-24-2024 Protein [Mass/Vol] 5.9 g/dL 5.9-8.4 [facility] Urinalysis, Completeon 12-24 AMORPHOUS 3+ Normal [facility] Comment on above: Order Comment: COLOR OF URINE MAY AFFECT DIPSTICK RESULTS.CLEAN CATCH Performed By: #### L 400.0001 ####[facility] [address] [place], [address] BACTERIA 3+ /hpf Normal None Seen [facility] Comment on above: Order Comment: COLOR OF URINE MAY AFFECT DIPSTICK RESULTS.CLEAN CATCH Performed By: #### L 400.0001 ####[facility] [address] [place], [address] CA OX CRYSTAL 2+ /hpf Normal [facility] Comment on above: Order Comment: COLOR OF URINE MAY AFFECT DIPSTICK RESULTS.CLEAN CATCH Performed By: #### L 400.0001 ####[facility] [address] [place], [address] EPI,SQUAMOUS 5-10 SEEN Normal 5-10 [facility] Comment on above: Order Comment: COLOR OF URINE MAY AFFECT DIPSTICK RESULTS.CLEAN CATCH Performed By: #### L 400.0001 ####[facility] [address] [place], [address] RBC 0-5 SEEN Normal 0-5 [facility] Comment on above: Order Comment: COLOR OF URINE MAY AFFECT DIPSTICK RESULTS.CLEAN CATCH Performed By: #### L 400.0001 ####[facility] [address] [place], [address] WBC 5-10 SEEN Normal 0-5 [facility] Comment on above: Order Comment: COLOR OF URINE MAY AFFECT DIPSTICK RESULTS.CLEAN CATCH Performed By: #### L 400.0001 ####[facility] [address] [place], [address] Mucus Ql (Urine sed) 0 SEEN Normal [facility] Comment on above: Order Comment: COLOR OF URINE MAY AFFECT DIPSTICK RESULTS.CLEAN CATCH Performed By: #### L 400.0001 ####[facility] [address] [place], [address] BACTERIA Normal None Seen [facility] Comment on above: Order Comment: CLEAN CATCH Result Comment: DUP ORDER UA COMPLETE Performed By: #### M 100.2200, L400.0001 ####[facility] [address] [place], [address] BILIRUBIN URINE Normal Negative [facility] Comment on above: Order Comment: CLEAN CATCH Result Comment: DUP ORDER UA COMPLETE Performed By: #### M 100.2200, L400.0001 ####[facility] [address] [place], [address] Clarity (U) Normal Clear [facility] Comment on above: Order Comment: CLEAN CATCH Result Comment: DUP ORDER UA COMPLETE Performed By: #### M 100.2200, L400.0001 ####[facility] [address] [place], [address] Color (U) Normal Yellow [facility] Comment on above: Order Comment: CLEAN CATCH Result Comment: DUP ORDER UA COMPLETE Performed By: #### M 100.2200, L400.0001 ####[facility] [address] [place], [address] EPI,SQUAMOUS Normal 5-10 [facility] Comment on above: Order Comment: CLEAN CATCH Result Comment: DUP ORDER UA COMPLETE Performed By: #### M 100.2200, L400.0001 ####[facility] [address] [place], [address] GLUCOSE, UR Normal Normal [facility] Comment on above: Order Comment: CLEAN CATCH Result Comment: DUP ORDER UA COMPLETE Performed By: #### M 100.2200, L400.0001 ####[facility] [address] [place], [address] KETONE UR Normal Negative [facility] Comment on above: Order Comment: CLEAN CATCH Result Comment: DUP ORDER UA COMPLETE Performed By: #### M 100.2200, L400.0001 ####[facility] [address] [place], [address] LEUK ESTERASE Normal Negative [facility] Comment on above: Order Comment: CLEAN CATCH Result Comment: DUP ORDER UA COMPLETE Performed By: #### M 100.2200, L400.0001 ####[facility] [address] [place], [address] Mucus Ql (Urine sed) Normal [facility] Comment on above: Order Comment: CLEAN CATCH Result Comment: DUP ORDER UA COMPLETE Performed By: #### M 100.2200, L400.0001 ####[facility] [address] [place], [address] Nitrite Ql (U) Normal Negative [facility] Comment on above: Order Comment: CLEAN CATCH Result Comment: DUP ORDER UA COMPLETE Performed By: #### M 100.2200, L400.0001 ####[facility] [address] [place], [address] OCCULT BLOOD-UR Normal Negative [facility] Comment on above: Order Comment: CLEAN CATCH Result Comment: DUP ORDER UA COMPLETE Performed By: #### M 100.2200, L400.0001 ####[facility] [address] [place], [address] pH UR Normal 5.0 - 8.0 [facility] Comment on above: Order Comment: CLEAN CATCH Result Comment: DUP ORDER UA COMPLETE Performed By: #### M 100.2200, L400.0001 ####[facility] [address] [place], [address] PROT DIPSTX Normal Negative [facility] Comment on above: Order Comment: CLEAN CATCH Result Comment: DUP ORDER UA COMPLETE Performed By: #### M 100.2200, L400.0001 ####[facility] [address] [place], [address] RBC Normal 0-5 [facility] Comment on above: Order Comment: CLEAN CATCH Result Comment: DUP ORDER UA COMPLETE Performed By: #### M 100.2200, L400.0001 ####[facility] [address] [place], [address] SP.GR. DIPSTX Normal 1.002-1.03 0 [facility] Comment on above: Order Comment: CLEAN CATCH Result Comment: DUP ORDER UA COMPLETE Performed By: #### M 100.2200, L400.0001 ####[facility] [address] [place], [address] UR Preservative Normal [facility] Comment on above: Order Comment: CLEAN CATCH Result Comment: DUP ORDER UA COMPLETE Performed By: #### M 100.2200, L400.0001 ####[facility] [address] [place], [address] UROBILI Normal Normal [facility] Comment on above: Order Comment: CLEAN CATCH Result Comment: DUP ORDER UA COMPLETE Performed By: #### M 100.2200, L400.0001 ####[facility] [address] [place], [address] WBC Normal 0-5 [facility] Comment on above: Order Comment: CLEAN CATCH Result Comment: DUP ORDER UA COMPLETE Performed By: #### M 100.2200, L400.0001 ####[facility] [address] [place], [address] Urine clarityOrdered By: Tri Camargo on 12-24-2024 Clarity (U) Clear Clear [facility] Urine color determinationOrd ered By: Oskar Camargo on 12-24-2024 Color (U) Manjula Yellow [facility] Urine cultureOrdered By: Spenser Naidu on 12-24-2024 Bacteria identified Cx Nom (U) Escherichia coli Abnormal [facility] Bacteria identified Cx Nom (U) Proteus mirabilis Abnormal [facility] Urine glucose detectionOrder ed By: Oskar Camargo on 12-24-2024 Glucose Ql (U) Normal mg/dl Normal [facility] Urine leukocyte esterase det ection by dipstickOrdered By: Oskar Camargo on 12-24-2024 Leukocyte esterase Test strip Ql (U) 25 /ul High Negative [facility] Urine pHOrdered By: Oskar dotson on 12-24-2024 pH (U) 5.0 [pH] 5.0 - 8.0 [facility] Urine sediment bacteria coun t by microscopy (number/high power field)Ordered By: Oskar Camargo on 12-24-2024 Bacteria LM.HPF (Urine sed) [#/Area] 3 /[HPF] None Seen [facility] Urine specific gravity measu rementOrdered By: Oskar Camargo on 12-24-2024 Specific gravity (U) [Rel density] 1.025 1.002-1.03 0 [facility] Urine urobilinogen measureme ntOrdered By: Oskar Camargo on 12-24-2024 Urobilinogen Ql (U) 1 mg/dl High Normal [facility] Vitamin B12on 12-24-2024 Cobalamin (Vitamin B12) [Mass/Vol] 695 pg/mL Normal 180-914 [facility] Comment on above: Performed By: #### L 503.0106 ####[facility] [address] [place], [address] Vitamin B12 ser/plasOrdered By: Kevin Naidu on 12-24-2024 Cobalamin (Vitamin B12) [Mass/Vol] 695 pg/mL 180-914 [facility] White blood cell (WBC) count Ordered By: Oskar Camargo on 12-24-2024 WBC (Bld) [#/Vol] 11.8 10*3/uL High 4.4-11.0 [facility] White blood cell countOrdere d By: Oskar Camargo on 12-24-2024 White blood cell count 5-10 SEEN /hpf 0-5 [facility] 36on 11-28-2024 36 We have been unable to reach your patient to schedule their testing. Test Name: echo 1st Attempt: 11/28 spoke with patient will call us to schedule Normal [facility] Absolute lymphocyte countOrd ered By: Kevin Robles on 11-24-2024 Lymphocytes Auto (Unsp spec) [#/Vol] 0.96 10*3/uL 0.83-4.51 [facility] Comment on above: Previous reported re sult: 1.87 X10^3/uLEdited by: COLETTE on 11/24/24:05 AMENDED REPORT 11/24/24514 Absolute Lymph previously reported as: 1.87 X10^3/uL Absolute neutrophil countOrd ered By: Kevin Robles on 11-24-2024 Neutrophils (Bld) [#/Vol] 11.3 10*3/uL High 2.0-7.7 [facility] Comment on above: Previous reported re sult: 7.5 X10^3/uLEdited by: COLETTE on 11/24/24:514 AMENDED REPORT 11/24/24514 Absolute Neut previously reported as: 7.5 X10^3/uL Anion gap in Serum or Plasma Ordered By: Kevin Robles on 11-24-2024 Anion gap [Moles/Vol] 9 mmol/L - [facility] Automated lymphocyte count a s percentage of total leukocytesOrdered By: Kevin Robles on 11-24-2024 Lymphocytes/100 WBC Auto (Unsp spec) 6.6 % Low 19-41 [facility] Comment on above: Previous reported re sult: 17.3 %Edited by: COLETTE on 11/24/24:05 AMENDED REPORT 11/24/24514 LY% previously reported as: 17.3 L % BUN/creatinine ratioOrdered By: Kevin Robles on 11-24-2024 Urea nitrogen/Creatinine [Mass ratio] 28.1 mg/mg High 10 [facility] Basic Metabolic Profile (BMP )on 11-24-2024 BUN/CRE 28.1 RATIO High 06-09 [facility] Comment on above: Performed By: #### L 100.0100, L500.2500 ####[facility] [address] [place], [address] Calcium [Mass/Vol] 8.2 mg/dL Normal 7.6-11.0 [facility] Comment on above: Performed By: #### L 100.0100, L500.2500 ####[facility] [address] [place], [address] Chloride [Moles/Vol] 112 mmol/L High 98-108 [facility] Comment on above: Performed By: #### L 100.0100, L500.2500 ####[facility] [address] [place], [address] CO2 [Moles/Vol] 21.8 mmol/L Normal 21.0-32.0 [facility] Comment on above: Performed By: #### L 100.0100, L500.2500 ####[facility] [address] [place], [address] Creatinine [Mass/Vol] 1.89 mg/dL High 0.70-1.20 [facility] Comment on above: Performed By: #### L 100.0100, L500.2500 ####[facility] [address] [place], [address] ECRCL 20.66 ml/min Low 50-250 [facility] Comment on above: Performed By: #### L 100.0100, L500.2500 ####[facility] [address] [place], [address] GAP 9 Normal 5-15 [facility] Comment on above: Performed By: #### L 100.0100, L500.2500 ####[facility] [address] [place], [address] GFR/1.73 sq M.predicted among non-blacks MDRD (S/P/Bld) [Vol rate/Area] 26 mL/min/{1.73_m2} Low >60 [facility] Comment on above: Result Comment: mL/m in/1.73m2 CKD-EPI Creatinine Equation (2020) Performed By: #### L 100.0100, L500.2500 ####[facility] [address] [place], [address] Glucose [Mass/Vol] 82 mg/dL Normal 70-99 [facility] Comment on above: Performed By: #### L 100.0100, L500.2500 ####[facility] [address] [place], [address] Potassium [Moles/Vol] 3.6 mmol/L Normal 3.3-5.1 [facility] Comment on above: Performed By: #### L 100.0100, L500.2500 ####[facility] [address] [place], [address] Sodium [Moles/Vol] 143 mmol/L Normal 133-145 [facility] Comment on above: Performed By: #### L 100.0100, L500.2500 ####[facility] [address] [place], [address] Urea nitrogen [Mass/Vol] 53 mg/dL High 4-19 [facility] Comment on above: Performed By: #### L 100.0100, L500.2500 ####[facility] [address] [place], [address] Basophil percentageOrdered B y: Kevin Robles on 11-24-2024 Basophils/100 WBC (Bld) 0.2 % 0-1 [facility] Comment on above: Previous reported re sult: 0.6 %Edited by: COLETTE on 11/24/24:0515 AMENDED REPORT 11/24/24 0515 BASO% previously reported as: 0.6 % Blood manual differential co mment interpretation (narrative result)Ordered By: Kevin Robles on 11-24-2024 Manual differential comment Adrián (Bld) [Interp] SCANNED [facility] Aneta cells LM Ql (Bld)Ordere d By: Kevin Robles on 11-24-2024 Crenated Cell RARE [facility] CBC W/Diff, Automatedon -0 6-2025 PATH REV N/A Normal [facility] Comment on above: Result Comment: AMENDED REPORT 11/24/244 PATH REV previously reported as: May foll Performed By: #### L 500.2500, L100.0100 ####[facility] [address] [place], [address] PATH REV N/A Normal [facility] Comment on above: Result Comment: AMENDED REPORT 11/24/241640 PATH REV previously reported as: May foll Performed By: #### L 100.0100 ####[facility] [address] [place], [address] Absolute Neut Normal 2.0-7.7 [facility] Comment on above: Result Comment: BARC ODE ERROR. REORDERED Performed By: #### L 100.0100, L500.2500 ####[facility] [address] [place], [address] HCT Normal 37-47 [facility] Comment on above: Result Comment: BARC ODE ERROR. REORDERED Performed By: #### L 100.0100, L500.2500 ####[facility] [address] [place], [address] HGB Normal 12.0-15.0 [facility] Comment on above: Result Comment: BARC ODE ERROR. REORDERED Performed By: #### L 100.0100, L500.2500 ####[facility] [address] [place], [address] MCH Normal 27.0-32.0 [facility] Comment on above: Result Comment: BARC ODE ERROR. REORDERED Performed By: #### L 100.0100, L500.2500 ####[facility] [address] [place], [address] MCHC Normal 32-36 [facility] Comment on above: Result Comment: BARC ODE ERROR. REORDERED Performed By: #### L 100.0100, L500.2500 ####[facility] [address] [place], [address] MCV Normal 81-99 [facility] Comment on above: Result Comment: BARC ODE ERROR. REORDERED Performed By: #### L 100.0100, L500.2500 ####[facility] [address] [place], [address] NEUT% Normal 47-70 [facility] Comment on above: Result Comment: BARC ODE ERROR. REORDERED Performed By: #### L 100.0100, L500.2500 ####[facility] [address] [place], [address] PLT Normal 150-450 [facility] Comment on above: Result Comment: BARC ODE ERROR. REORDERED Performed By: #### L 100.0100, L500.2500 ####[facility] [address] [place], [address] RBC Normal 4.2-5.4 [facility] Comment on above: Result Comment: BARC ODE ERROR. REORDERED Performed By: #### L 100.0100, L500.2500 ####[facility] [address] [place], [address] RDW CV Normal 11.6-14.6 [facility] Comment on above: Result Comment: BARC ODE ERROR. REORDERED Performed By: #### L 100.0100, L500.2500 ####[facility] [address] [place], [address] RDW SD Normal 35.1-43.9 [facility] Comment on above: Result Comment: BARC ODE ERROR. REORDERED Performed By: #### L 100.0100, L500.2500 ####[facility] [address] [place], [address] WBC Normal 4.4-11.0 [facility] Comment on above: Result Comment: KAREN FOSTER ERROR. REORDERED Performed By: #### L 100.0100, L500.2500 ####[facility] [address] [place], [address] Carbon dioxide, total [Moles /volume] in Central venous bloodOrdered By: Kevin Robles on 11-24-2024 CO2 [Moles/Vol] 21.8 mmol/L 21.0-32.0 [facility] Chloride assayOrdered By: Nemesio Robles on 11-24-2024 Chloride [Moles/Vol] 112 mmol/L High 98-108 [facility] Crenated erythrocyte detecti on by light microscopyOrdered By: Kevin Robles on 11-24-2024 Aneta cells LM Ql (Bld) [facility] Dacrocytes LM Ql (Bld)Ordere d By: Kevin Robles on 11-24-2024 Tear Drop Cells RARE [facility] Eosinophil percentageOrdered By: Kevin Robles on 11-24-2024 Eosinophils/100 WBC (Bld) 3.0 % 0-5 [facility] Comment on above: Previous reported re sult: 6.3 %Edited by: COLETTE on 11/24/24:514 AMENDED REPORT 11/24/24514 EO% previously reported as: 6.3 H % Erythrocyte distribution wid th (RBC) [Ratio]Ordered By: Kevin Robles on 11-24-2024 Erythrocyte distribution width (RBC) [Entitic vol] 49.5 fL High 35.1-43.9 [facility] Comment on above: Previous reported re sult: 42.0 flEdited by: COLETTE on 11/24/24:514 AMENDED REPORT 11/24/24514 RDW SD previously reported as: 42.0 fl Erythrocyte distribution wid th ratioOrdered By: Kevin Robles on 11-24-2024 Erythrocyte distribution width (RBC) [Ratio] 13.5 % 11.6-14.6 [facility] Comment on above: Previous reported re sult: 14.3 %Edited by: COLETTE on 11/24/24:15 AMENDED REPORT 11/24/2415 RDW CV previously reported as: 14.3 % Erythrocyte distribution wid th standard deviationOrdered By: Kevin Robles on 11-24-2024 Erythrocyte distribution width (RBC) [Ratio] 49.5 fl High 35.1-43.9 [facility] Comment on above: Previous reported re sult: 42.0 flEdited by: COLETTE on 11/24/24:0515 AMENDED REPORT 11/24/24514 RDW SD previously reported as: 42.0 fl Estimation of creatinine ema aranceOrdered By: Kevin Robles on 11-24-2024 Estimated Creatinine Clearance Calc 20.66 ml/min Low 50-250 [facility] GFR/1.73 sq M.predicted lucinda g non-blacks MDRD (S/P/Bld) [Vol rate/Area]Ordered By: Kevin Robles on 11-24-2024 Estimated GFR (MDRD) Non-Af Amer 26 Low >60 [facility] Comment on above: mL/min/1.73m2 CKD-EP I Creatinine Equation (2020) Glomerular filtration rate ( GFR) estimation/1.73 sq m using serum, plasma, or whole bOrdered By: Kevin Robles on 11-24-2024 GFR/1.73 sq M.predicted among non-blacks MDRD (S/P/Bld) [Vol rate/Area] 26 mL/min/{1.73_m2} Low >60 [facility] Comment on above: mL/min/1.73m2 CKD-EP I Creatinine Equation (2020) Hematocrit Auto (Bld) [Volum e fraction]Ordered By: Kevin Robles on 11-24-2024 Hematocrit (Bld) [Volume fraction] 41.9 % 37-47 [facility] Comment on above: Previous reported re sult: 33.6 %Edited by: COLETTE on 11/24/24:0515 AMENDED REPORT 11/24/24514 HCT previously reported as: 33.6 L % Hemoglobin measurementOrdere d By: Kevin Robles on 11-24-2024 Hemoglobin (Bld) [Mass/Vol] 13.8 g/dL 12.0-15.0 [facility] Comment on above: Previous reported re sult: 11.4 g/dLEdited by: COLETTE on 11/24/24:05 AMENDED REPORT 11/24/24514 HGB previously reported as: 11.4 L g/dL Immature granulocytes/100 WB C Auto (Bld)Ordered By: Kevin Robles on 11-24-2024 Immature granulocytes/100 WBC (Bld) 0.600 % 0.0-0.9 [facility] Comment on above: Previous reported re sult: 0.500 %Edited by: COLETTE on 11/24/24:0515 AMENDED REPORT 11/24/24514 IM GRAN % previously reported as: 0.500 % IG% - Immature Granulocytes (promyelocytes, myelocytes and metamyelocytes) > 1% indicates that a LEFT SHIFT is Present. Laboratory - Hematology and Cell countsOrdered By: Kevin Robles on 11-24-2024 Anisocytosis Ql (Bld) 1+ [facility] Lymphocytes Auto (Unsp spec) [#/Vol]Ordered By: Kevin Robles on 11-24-2024 Lymphocytes (Bld) [#/Vol] 0.96 10*3/uL 0.83-4.51 [facility] Comment on above: Previous reported re sult: 1.87 X10^3/uLEdited by: COLETTE on 11/24/24:0515 AMENDED REPORT 11/24/24514 Absolute Lymph previously reported as: 1.87 X10^3/uL Lymphocytes/100 WBC Auto (Un sp spec)Ordered By: Kevin Robles on 11-24-2024 Lymphocytes/100 WBC (Bld) 6.6 % Low 19-41 [facility] Comment on above: Previous reported re sult: 17.3 %Edited by: COLETTE on 11/24/24:0515 AMENDED REPORT 11/24/24514 LY% previously reported as: 17.3 L % MCV (mean corpuscular volume ) determinationOrdered By: Kevin Robles on 11-24-2024 MCV (RBC) [Entitic vol] 100.0 fL High 81-99 [facility] Comment on above: Previous reported re sult: 82.4 fLEdited by: COLETTE on 11/24/24:0515 AMENDED REPORT 11/24/24514 MCV previously reported as: 82.4 # fL Macrocytes Ql (Bld)Ordered B y: Kevin Robles on 11-24-2024 Macrocytosis 1+ [facility] Macrocytes detectionOrdered By: Kevin Robles on 11-24-2024 Macrocytes Ql (Bld) 1+ [facility] Manual differential comment Adrián (Bld) [Interp]Ordered By: Kevin Robles on 11-24-2024 Differential Comment SCANNED [facility] Mean corpuscular hemoglobin (MCH) determinationOrdered By: Kevin Robles on 11-24-2024 MCH (RBC) [Entitic mass] 32.9 pg High 27.0-32.0 [facility] Comment on above: Previous reported re sult: 27.9 pgEdited by: COLETTE on 11/24/24:0515 AMENDED REPORT 11/24/24514 MCH previously reported as: 27.9 pg Mean corpuscular hemoglobin concentration (MCHC) determinationOrdered By: Kevin Robles on 11-24-2024 MCHC (RBC) [Mass/Vol] 32.9 g/dL 32-36 [facility] Comment on above: Previous reported re sult: 33.9 g/dLEdited by: COLETTE on 11/24/24:0515 AMENDED REPORT 11/24/24514 MCHC previously reported as: 33.9 g/dL Mean platelet volume determi nationOrdered By: Kevin Robles on 11-24-2024 Platelet mean volume (Bld) [Entitic vol] 11.2 fL 6.2-12.0 [facility] Comment on above: Previous reported re sult: 10.3 flEdited by: COLETTE on 11/24/24:0515 AMENDED REPORT 11/24/24514 MPV previously reported as: 10.3 fl Monocyte percentageOrdered B y: Kevin Robles on 11-24-2024 Monocytes/100 WBC (Bld) 11.3 % High 0-10 [facility] Comment on above: Previous reported re sult: 6.1 %Edited by: COLETTE on 11/24/24:0515 AMENDED REPORT 11/24/24514 MONO% previously reported as: 6.1 % Neutrophil percentageOrdered By: Kevin Robles on 11-24-2024 Neutrophils/100 WBC (Bld) 78.3 % High 47-70 [facility] Comment on above: Previous reported re sult: 69.2 %Edited by: COLETTE on 11/24/24:0515 AMENDED REPORT 11/24/24514 NEUT% previously reported as: 69.2 % Nucleated red blood cell per centageOrdered By: Kevin Robles on 11-24-2024 Nucleated RBC/100 WBC (Bld) [Ratio] 0 % 0-5 [facility] Ovalocyte detectionOrdered B y: Kevin Robles on 11-24-2024 Ovalocytes LM Ql (Bld) 1+ [facility] Ovalocytes LM Ql (Bld)Ordere d By: Kevin Robles on 11-24-2024 Ovalocytes 1+ [facility] Pathologist review Adrián (Unsp spec) [Interp]Ordered By: Kevin Robles on 11-24-2024 Differential Pathologist's Review Majo jurado [facility] Differential Pathologist's Review N/A [facility] Comment on above: Previous reported re sult: Majo jurado Edited by: FARZAD on 11/24/24:1641 AMENDED REPORT 11/24/24 1641 PATH REV previously reported as: December rhiannon Platelet countOrdered By: Nemesio Robles on 11-24-2024 Platelets (Bld) [#/Vol] 104 10*3/uL Low 150-450 [facility] Comment on above: Previous reported re sult: 252 K/zn5Vdxeho by: COLETTE on 11/24/24:0515 AMENDED REPORT 11/24/24514 PLT previously reported as: 252 K/mm3 Platelet estimateOrdered By: Kevin Robles on 11-24-2024 Platelets LM Ql (Bld) SLT DEC ADEQ [facility] Platelets LM Ql (Bld)Ordered By: Kevin Robles on 11-24-2024 Platelet Estimate SLT DEC ADEQ [facility] Potassium (Unsp spec) [Mass/ Vol]Ordered By: Kevin Robles on 11-24-2024 Potassium [Moles/Vol] 3.6 mmol/L 3.3-5.1 [facility] Potassium measurement (mass/ volume)Ordered By: Kevin Robles on 11-24-2024 Potassium (Unsp spec) [Mass/Vol] 3.6 mmol/L 3.3-5.1 [facility] RBC Auto (Bld) [#/Vol]Ordere d By: Kevin Robles on 11-24-2024 RBC (Bld) [#/Vol] 4.19 10*6/uL Low 4.2-5.4 [facility] Comment on above: Previous reported re sult: 4.08 M/nw7Kayukj by: COLETTE on 11/24/24:0515 AMENDED REPORT 11/24/2415 RBC previously reported as: 4.08 L M/mm3 Review by pathologistOrdered By: Kevin Robles on 11-24-2024 Pathologist review Adrián (Unsp spec) [Interp] N/A [facility] Comment on above: Previous reported re sult: May rhiannon Edited by: FARZAD on 11/24/24:1641 AMENDED REPORT 11/24/24 1641 PATH REV previously reported as: Majo jurado Serum creatinine measurement (mass/volume)Ordered By: Kevin Robles on 11-24-2024 Creatinine [Mass/Vol] 1.89 mg/dL High 0.70-1.20 [facility] Serum glucose measurement (m ass/volume)Ordered By: Kevin Robles on 11-24-2024 Glucose [Mass/Vol] 82 mg/dL 70-99 [facility] Serum or plasma calcium azael urement (mass/volume)Ordered By: Kevin Robles on 11-24-2024 Calcium [Mass/Vol] 8.2 mg/dL 7.6-11.0 [facility] Serum or plasma urea nitroge n measurement (mass/volume)Ordered By: Kevin Robles on 11-24-2024 Urea nitrogen [Mass/Vol] 53 mg/dL High 4-19 [facility] Sodium levelOrdered By: Nii Robles on 11-24-2024 Sodium [Moles/Vol] 143 mmol/L 133-145 [facility] Teardrop cell detectionOrder ed By: Kevin Robles on 11-24-2024 Dacrocytes LM Ql (Bld) RARE [facility] White blood cell (WBC) count Ordered By: Kevin Robles on 11-24-2024 WBC (Bld) [#/Vol] 14.5 10*3/uL High 4.4-11.0 [facility] Comment on above: Previous reported re sult: 10.8 K/ez9Vmnhez by: COLETTE on 11/24/24:05 AMENDED REPORT 11/24/24513 WBC previously reported as: 10.8 K/mm3 Basic Metabolic Profile (BMP )on 11-23-2024 BUN/CRE 31.5 RATIO High 10-20 [facility] Comment on above: Performed By: #### L 500.2500, L100.0100 ####[facility] [address] [place], [address] Calcium [Mass/Vol] 8.2 mg/dL Normal 7.6-11.0 [facility] Comment on above: Performed By: #### L 500.2500, L100.0100 ####[facility] [address] [place], [address] Chloride [Moles/Vol] 110 mmol/L High 98-108 [facility] Comment on above: Performed By: #### L 500.2500, L100.0100 ####[facility] [address] [place], [address] CO2 [Moles/Vol] 21.9 mmol/L Normal 21.0-32.0 [facility] Comment on above: Performed By: #### L 500.2500, L100.0100 ####[facility] [address] [place], [address] Creatinine [Mass/Vol] 1.99 mg/dL High 0.70-1.20 [facility] Comment on above: Performed By: #### L 500.2500, L100.0100 ####[facility] [address] [place], [address] ECRCL 19.62 ml/min Low 50-250 [facility] Comment on above: Performed By: #### L 500.2500, L100.0100 ####[facility] [address] [place], [address] GAP 10 Normal 5-15 [facility] Comment on above: Performed By: #### L 500.2500, L100.0100 ####[facility] [address] [place], [address] GFR/1.73 sq M.predicted among non-blacks MDRD (S/P/Bld) [Vol rate/Area] 24 mL/min/{1.73_m2} Low >60 [facility] Comment on above: Result Comment: mL/m in/1.73m2 CKD-EPI Creatinine Equation (2020) Performed By: #### L 500.2500, L100.0100 ####[facility] [address] [place], [address] Glucose [Mass/Vol] 89 mg/dL Normal 70-99 [facility] Comment on above: Performed By: #### L 500.2500, L100.0100 ####[facility] [address] [place], [address] Potassium [Moles/Vol] 3.1 mmol/L Low 3.3-5.1 [facility] Comment on above: Performed By: #### L 500.2500, L100.0100 ####[facility] [address] [place], [address] Sodium [Moles/Vol] 141 mmol/L Normal 133-145 [facility] Comment on above: Performed By: #### L 500.2500, L100.0100 ####[facility] [address] [place], [address] Urea nitrogen [Mass/Vol] 63 mg/dL High 4-19 [facility] Comment on above: Performed By: #### L 500.2500, L100.0100 ####[facility] [address] [place], [address] Basic Metabolic Profile (BMP )on 11-22-2024 BUN/CRE 32.3 RATIO High 10-20 [facility] Comment on above: Performed By: #### L 100.0100, L500.2500, L501.2300, L501.5200 ####[facility] [address] [place], [address] Calcium [Mass/Vol] 8.2 mg/dL Normal 7.6-11.0 [facility] Comment on above: Performed By: #### L 100.0100, L500.2500, L501.2300, L501.5200 ####[facility] [address] [place], [address] Chloride [Moles/Vol] 111 mmol/L High 98-108 [facility] Comment on above: Performed By: #### L 100.0100, L500.2500, L501.2300, L501.5200 ####[facility] [address] [place], [address] CO2 [Moles/Vol] 20.8 mmol/L Low 21.0-32.0 [facility] Comment on above: Performed By: #### L 100.0100, L500.2500, L501.2300, L501.5200 ####[facility] [address] [place], [address] Creatinine [Mass/Vol] 2.29 mg/dL High 0.70-1.20 [facility] Comment on above: Performed By: #### L 100.0100, L500.2500, L501.2300, L501.5200 ####[facility] [address] [place], [address] ECRCL 16.91 ml/min Low 50-250 [facility] Comment on above: Performed By: #### L 100.0100, L500.2500, L501.2300, L501.5200 ####[facility] [address] [place], [address] GAP 11 Normal 5-15 [facility] Comment on above: Performed By: #### L 100.0100, L500.2500, L501.2300, L501.5200 ####[facility] [address] [place], [address] GFR/1.73 sq M.predicted among non-blacks MDRD (S/P/Bld) [Vol rate/Area] 21 mL/min/{1.73_m2} Low >60 [facility] Comment on above: Result Comment: mL/m in/1.73m2 CKD-EPI Creatinine Equation (2020) Performed By: #### L 100.0100, L500.2500, L501.2300, L501.5200 ####[facility] [address] [place], [address] Glucose [Mass/Vol] 82 mg/dL Normal 70-99 [facility] Comment on above: Performed By: #### L 100.0100, L500.2500, L501.2300, L501.5200 ####[facility] [address] [place], [address] Potassium [Moles/Vol] 3.1 mmol/L Low 3.3-5.1 [facility] Comment on above: Performed By: #### L 100.0100, L500.2500, L501.2300, L501.5200 ####[facility] [address] [place], [address] Sodium [Moles/Vol] 142 mmol/L Normal 133-145 [facility] Comment on above: Performed By: #### L 100.0100, L500.2500, L501.2300, L501.5200 ####[facility] [address] [place], [address] Urea nitrogen [Mass/Vol] 74 mg/dL High 4-19 [facility] Comment on above: Performed By: #### L 100.0100, L500.2500, L501.2300, L501.5200 ####[facility] [address] [place], [address] CBC W/Diff, Automatedon - PATH REV N/A Normal [facility] Comment on above: Result Comment: AMENDED REPORT 11/22/24 0819 PATH REV previously reported as: December Performed By: #### L 501.5200, L500.3400, L100.0100, L501.2300, L500.2500 ####[facility] [address] [place], [address] PLT EST SLT DEC Normal ADEQ [facility] Comment on above: Performed By: #### L 100.0100, L500.2500, L501.2300, L501.5200 ####[facility] [address] [place], [address] Culture, Blood (WB)on 2024 CUB [id number] LAC [id number] RA C Blood cultures x2, from two different sites No growth in 5 days. Normal [facility] Comment on above: Performed By: #### M 200.1000 ####[facility] [address] [place], [address] Magnesiumon 11-22-2024 Magnesium [Mass/Vol] 2.2 mg/dL Normal 1.5-2.2 [facility] Comment on above: Performed By: #### L 100.0100, L500.2500, L501.2300, L501.5200 ####[facility] [address] [place], [address] Magnesium (Unsp spec) [Mass/ Vol]Ordered By: Kevin Robles on 11-22-2024 Magnesium [Mass/Vol] 2.2 mg/dL 1.5-2.2 [facility] Magnesium measurement (mass/ volume)Ordered By: Kevin Robles on 11-22-2024 Magnesium (Unsp spec) [Mass/Vol] 2.2 mg/dL 1.5-2.2 [facility] Phosphoruson 11-22-2024 Phosphate [Mass/Vol] 3.4 mg/dL Normal 2.7-4.5 [facility] Comment on above: Performed By: #### L 100.0100, L500.2500, L501.2300, L501.5200 ####[facility] [address] [place], [address] Serum phosphorus measurement Ordered By: Kevin Robles on 11-22-2024 Phosphorus Level 3.4 mg/dL 2.7-4.5 [facility] Basic Metabolic Profile (BMP )on 11-21-2024 BUN/CRE 29.9 RATIO High 10-20 [facility] Comment on above: Performed By: #### L 500.3400, L100.0100, L500.2500 ####[facility] [address] [place], [address] Calcium [Mass/Vol] 8.5 mg/dL Normal 7.6-11.0 [facility] Comment on above: Performed By: #### L 500.3400, L100.0100, L500.2500 ####[facility] [address] [place], [address] Chloride [Moles/Vol] 114 mmol/L High 98-108 [facility] Comment on above: Performed By: #### L 500.3400, L100.0100, L500.2500 ####[facility] [address] [place], [address] CO2 [Moles/Vol] 22.2 mmol/L Normal 21.0-32.0 [facility] Comment on above: Performed By: #### L 500.3400, L100.0100, L500.2500 ####[facility] [address] [place], [address] Creatinine [Mass/Vol] 2.61 mg/dL High 0.70-1.20 [facility] Comment on above: Performed By: #### L 500.3400, L100.0100, L500.2500 ####[facility] [address] [place], [address] ECRCL 14.82 ml/min Low 50-250 [facility] Comment on above: Performed By: #### L 500.3400, L100.0100, L500.2500 ####[facility] [address] [place], [address] GAP 11 Normal 5-15 [facility] Comment on above: Performed By: #### L 500.3400, L100.0100, L500.2500 ####[facility] [address] [place], [address] GFR/1.73 sq M.predicted among non-blacks MDRD (S/P/Bld) [Vol rate/Area] 18 mL/min/{1.73_m2} Low >60 [facility] Comment on above: Result Comment: mL/m in/1.73m2 CKD-EPI Creatinine Equation (2020) Performed By: #### L 500.3400, L100.0100, L500.2500 ####[facility] [address] [place], [address] Glucose [Mass/Vol] 87 mg/dL Normal 70-99 [facility] Comment on above: Performed By: #### L 500.3400, L100.0100, L500.2500 ####[facility] [address] [place], [address] Potassium [Moles/Vol] 3.1 mmol/L Low 3.3-5.1 [facility] Comment on above: Performed By: #### L 500.3400, L100.0100, L500.2500 ####[facility] [address] [place], [address] Sodium [Moles/Vol] 148 mmol/L High 133-145 [facility] Comment on above: Performed By: #### L 500.3400, L100.0100, L500.2500 ####[facility] [address] [place], [address] Urea nitrogen [Mass/Vol] 78 mg/dL High 4-19 [facility] Comment on above: Performed By: #### L 500.3400, L100.0100, L500.2500 ####[facility] [address] [place], [address] Bilirubin directOrdered By: Kevin Robles on 11-21-2024 Bilirubin.direct [Mass/Vol] 0.60 mg/dL High 0.00-0.30 [facility] Bilirubin, totalOrdered By: Kevin Robles on 11-21-2024 Bilirubin [Mass/Vol] 1.04 mg/dL 0.00-1.30 [facility] CBC W/Diff, Automatedon 04-0 Absolute Lymph 0.91 X10 3/uL Normal 0.83-4.51 [facility] Comment on above: Performed By: #### L 500.3400, L100.0100, L500.2500 ####[facility] [address] [place], [address] Absolute Neut 10.1 X10 3/uL High 2.0-7.7 [facility] Comment on above: Performed By: #### L 500.3400, L100.0100, L500.2500 ####[facility] [address] [place], [address] Basophils/100 WBC (Bld) 0.2 % Normal 0-1 [facility] Comment on above: Performed By: #### L 500.3400, L100.0100, L500.2500 ####[facility] [address] [place], [address] Eosinophils/100 WBC (Bld) 0.1 % Normal 0-5 [facility] Comment on above: Performed By: #### L 500.3400, L100.0100, L500.2500 ####[facility] [address] [place], [address] Erythrocyte distribution width (RBC) [Ratio] 14.0 % Normal 11.6-14.6 [facility] Comment on above: Performed By: #### L 500.3400, L100.0100, L500.2500 ####[facility] [address] [place], [address] Hematocrit (Bld) [Volume fraction] 44.6 % Normal 37-47 [facility] Comment on above: Performed By: #### L 500.3400, L100.0100, L500.2500 ####[facility] [address] [place], [address] Hemoglobin (Bld) [Mass/Vol] 14.3 g/dL Normal 12.0-15.0 [facility] Comment on above: Performed By: #### L 500.3400, L100.0100, L500.2500 ####[facility] [address] [place], [address] IG% 0.500 Normal 0.0-0.9 [facility] Comment on above: Result Comment: IG% - Immature Granulocytes (promyelocytes, myelocytes andmetamyelocytes) > 1% indicates that a LEFT SHIFT is Present. Performed By: #### L 500.3400, L100.0100, L500.2500 ####[facility] [address] [place], [address] Lymphocytes/100 WBC (Bld) 7.2 % Low 19-41 [facility] Comment on above: Performed By: #### L 500.3400, L100.0100, L500.2500 ####[facility] [address] [place], [address] MCH (RBC) [Entitic mass] 32.2 pg High 27.0-32.0 [facility] Comment on above: Performed By: #### L 500.3400, L100.0100, L500.2500 ####[facility] [address] [place], [address] MCHC (RBC) [Mass/Vol] 32.1 g/dL Normal 32-36 [facility] Comment on above: Performed By: #### L 500.3400, L100.0100, L500.2500 ####[facility] [address] [place], [address] MCV (RBC) [Entitic vol] 100.5 fL High 81-99 [facility] Comment on above: Performed By: #### L 500.3400, L100.0100, L500.2500 ####[facility] [address] [place], [address] Monocytes/100 WBC (Bld) 11.9 % High 0-10 [facility] Comment on above: Performed By: #### L 500.3400, L100.0100, L500.2500 ####[facility] [address] [place], [address] Neutrophils/100 WBC (Bld) 80.1 % High 47-70 [facility] Comment on above: Performed By: #### L 500.3400, L100.0100, L500.2500 ####[facility] [address] [place], [address] Nucleated RBC (Bld) [#/Vol] 0 10*3/uL Normal 0-5 [facility] Comment on above: Performed By: #### L 500.3400, L100.0100, L500.2500 ####[facility] [address] [place], [address] Platelet mean volume (Bld) [Entitic vol] 11.1 fL Normal 6.2-12.0 [facility] Comment on above: Performed By: #### L 500.3400, L100.0100, L500.2500 ####[facility] [address] [place], [address] Platelets (Bld) [#/Vol] 136 10*3/uL Low 150-450 [facility] Comment on above: Performed By: #### L 500.3400, L100.0100, L500.2500 ####[facility] [address] [place], [address] RBC (Bld) [#/Vol] 4.44 10*6/uL Normal 4.2-5.4 [facility] Comment on above: Performed By: #### L 500.3400, L100.0100, L500.2500 ####[facility] [address] [place], [address] RDW SD 52.2 fl High 35.1-43.9 [facility] Comment on above: Performed By: #### L 500.3400, L100.0100, L500.2500 ####[facility] [address] [place], [address] WBC (Bld) [#/Vol] 12.6 10*3/uL High 4.4-11.0 [facility] Comment on above: Performed By: #### L 500.3400, L100.0100, L500.2500 ####[facility] [address] [place], [address] Laboratory - Chemistry and C hemistry - challengeOrdered By: Kevin Robles on 11-21-2024 AST [Catalytic activity/Vol] 40 U/L High <32 [facility] Liver Profileon 11-21-2024 Albumin [Mass/Vol] 2.9 g/dL Low 3.4-4.8 [facility] Comment on above: Performed By: #### L 500.3400, L100.0100, L500.2500 ####[facility] [address] [place], [address] ALK PHOS 141 U/L High 35-104 [facility] Comment on above: Performed By: #### L 500.3400, L100.0100, L500.2500 ####[facility] [address] [place], [address] ALT [Catalytic activity/Vol] 141 U/L High <=34 [facility] Comment on above: Performed By: #### L 500.3400, L100.0100, L500.2500 ####[facility] [address] [place], [address] AST [Catalytic activity/Vol] 40 U/L High <=31 [facility] Comment on above: Performed By: #### L 500.3400, L100.0100, L500.2500 ####[facility] [facility] [address] [place], [address] Bilirubin [Mass/Vol] 1.04 mg/dL Normal 0.00-1.30 [facility] Comment on above: Performed By: #### L 500.3400, L100.0100, L500.2500 ####[facility] [address] [place], [address] Bilirubin.direct [Mass/Vol] 0.60 mg/dL High 0.00-0.30 [facility] Comment on above: Performed By: #### L 500.3400, L100.0100, L500.2500 ####[facility] [address] [place], [address] Globulin (S) [Mass/Vol] 2.5 g/dL Normal 2.2-4.2 [facility] Comment on above: Performed By: #### L 500.3400, L100.0100, L500.2500 ####[facility] [address] [place], [address] T PROT 5.4 g/dL Low 5.9-8.4 [facility] Comment on above: Performed By: #### L 500.3400, L100.0100, L500.2500 ####[facility] [address] [place], [address] Serum globulin measurementOr dered By: Kevin Robles on 11-21-2024 Globulin (S) [Mass/Vol] 2.5 g/dL 2.2-4.2 [facility] Serum or plasma alanine colbert otransferase (ALT) measurementOrdered By: Kevin Robles on 11-21-2024 ALT [Catalytic activity/Vol] 141 U/L High <35 [facility] Serum or plasma albumin azael urement (mass/volume)Ordered By: Kevin Robles on 11-21-2024 Albumin [Mass/Vol] 2.9 g/dL Low 3.4-4.8 [facility] Serum or plasma alkaline selvin sphatase measurementOrdered By: Kevin Robles on 11-21-2024 ALP [Catalytic activity/Vol] 141 U/L High 35-104 [facility] Total proteinOrdered By: Spenser Robles on 11-21-2024 Protein [Mass/Vol] 5.4 g/dL Low 5.9-8.4 [facility] Basic Metabolic Profile (BMP )on 11-20-2024 BUN/CRE 28.9 RATIO High 10-20 [facility] Comment on above: Performed By: #### L 100.0100, L500.3400, L500.2500 ####[facility] [address] [place], [address] Calcium [Mass/Vol] 8.5 mg/dL Normal 7.6-11.0 [facility] Comment on above: Performed By: #### L 100.0100, L500.3400, L500.2500 ####[facility] [address] [place], [address] Chloride [Moles/Vol] 112 mmol/L High 98-108 [facility] Comment on above: Performed By: #### L 100.0100, L500.3400, L500.2500 ####[facility] [address] [place], [address] CO2 [Moles/Vol] 20.6 mmol/L Low 21.0-32.0 [facility] Comment on above: Performed By: #### L 100.0100, L500.3400, L500.2500 ####[facility] [address] [place], [address] Creatinine [Mass/Vol] 2.62 mg/dL High 0.70-1.20 [facility] Comment on above: Performed By: #### L 100.0100, L500.3400, L500.2500 ####[facility] [address] [place], [address] ECRCL 14.47 ml/min Low 50-250 [facility] Comment on above: Performed By: #### L 100.0100, L500.3400, L500.2500 ####[facility] [address] [place], [address] GAP 12 Normal 5-15 [facility] Comment on above: Performed By: #### L 100.0100, L500.3400, L500.2500 ####[facility] [address] [place], [address] GFR/1.73 sq M.predicted among non-blacks MDRD (S/P/Bld) [Vol rate/Area] 18 mL/min/{1.73_m2} Low >60 [facility] Comment on above: Result Comment: mL/m in/1.73m2 CKD-EPI Creatinine Equation (2020) Performed By: #### L 100.0100, L500.3400, L500.2500 ####[facility] [address] [place], [address] Glucose [Mass/Vol] 123 mg/dL High 70-99 [facility] Comment on above: Performed By: #### L 100.0100, L500.3400, L500.2500 ####[facility] [address] [place], [address] Potassium [Moles/Vol] 3.8 mmol/L Normal 3.3-5.1 [facility] Comment on above: Performed By: #### L 100.0100, L500.3400, L500.2500 ####[facility] [address] [place], [address] Sodium [Moles/Vol] 145 mmol/L Normal 133-145 [facility] Comment on above: Performed By: #### L 100.0100, L500.3400, L500.2500 ####[facility] [address] [place], [address] Urea nitrogen [Mass/Vol] 76 mg/dL High 4-19 [facility] Comment on above: Performed By: #### L 100.0100, L500.3400, L500.2500 ####[facility] [address] [place], [address] CBC W/Diff, Automatedon 04-0 Absolute Lymph 0.65 X10 3/uL Low 0.83-4.51 [facility] Comment on above: Performed By: #### L 100.0100, L500.3400, L500.2500 ####[facility] [address] [place], [address] Absolute Neut 10.6 X10 3/uL High 2.0-7.7 [facility] Comment on above: Performed By: #### L 100.0100, L500.3400, L500.2500 ####[facility] [address] [place], [address] Basophils/100 WBC (Bld) 0.1 % Normal 0-1 [facility] Comment on above: Performed By: #### L 100.0100, L500.3400, L500.2500 ####[facility] [address] [place], [address] Eosinophils/100 WBC (Bld) 0.0 % Normal 0-5 [facility] Comment on above: Performed By: #### L 100.0100, L500.3400, L500.2500 ####[facility] [address] [place], [address] Erythrocyte distribution width (RBC) [Ratio] 14.0 % Normal 11.6-14.6 [facility] Comment on above: Performed By: #### L 100.0100, L500.3400, L500.2500 ####[facility] [address] [place], [address] Hematocrit (Bld) [Volume fraction] 47.4 % High 37-47 [facility] Comment on above: Performed By: #### L 100.0100, L500.3400, L500.2500 ####[facility] [address] [place], [address] Hemoglobin (Bld) [Mass/Vol] 15.0 g/dL Normal 12.0-15.0 [facility] Comment on above: Performed By: #### L 100.0100, L500.3400, L500.2500 ####[facility] [address] [place], [address] IG% 0.700 Normal 0.0-0.9 [facility] Comment on above: Result Comment: IG% - Immature Granulocytes (promyelocytes, myelocytes andmetamyelocytes) > 1% indicates that a LEFT SHIFT is Present. Performed By: #### L 100.0100, L500.3400, L500.2500 ####[facility] [address] [place], [address] Lymphocytes/100 WBC (Bld) 5.4 % Low 19-41 [facility] Comment on above: Performed By: #### L 100.0100, L500.3400, L500.2500 ####[facility] [address] [place], [address] MCH (RBC) [Entitic mass] 32.3 pg High 27.0-32.0 [facility] Comment on above: Performed By: #### L 100.0100, L500.3400, L500.2500 ####[facility] [address] [place], [address] MCHC (RBC) [Mass/Vol] 31.6 g/dL Low 32-36 [facility] Comment on above: Performed By: #### L 100.0100, L500.3400, L500.2500 ####[facility] [address] [place], [address] MCV (RBC) [Entitic vol] 101.9 fL High 81-99 [facility] Comment on above: Performed By: #### L 100.0100, L500.3400, L500.2500 ####[facility] [address] [place], [address] Monocytes/100 WBC (Bld) 6.4 % Normal 0-10 [facility] Comment on above: Performed By: #### L 100.0100, L500.3400, L500.2500 ####[facility] [address] [place], [address] Neutrophils/100 WBC (Bld) 87.4 % High 47-70 [facility] Comment on above: Performed By: #### L 100.0100, L500.3400, L500.2500 ####[facility] [address] [place], [address] Nucleated RBC (Bld) [#/Vol] 0 10*3/uL Normal 0-5 [facility] Comment on above: Performed By: #### L 100.0100, L500.3400, L500.2500 ####[facility] [address] [place], [address] Platelet mean volume (Bld) [Entitic vol] 11.2 fL Normal 6.2-12.0 [facility] Comment on above: Performed By: #### L 100.0100, L500.3400, L500.2500 ####[facility] [address] [place], [address] Platelets (Bld) [#/Vol] 153 10*3/uL Normal 150-450 [facility] Comment on above: Performed By: #### L 100.0100, L500.3400, L500.2500 ####[facility] [address] [place], [address] RBC (Bld) [#/Vol] 4.65 10*6/uL Normal 4.2-5.4 [facility] Comment on above: Performed By: #### L 100.0100, L500.3400, L500.2500 ####[facility] [address] [place], [address] RDW SD 53.1 fl High 35.1-43.9 [facility] Comment on above: Performed By: #### L 100.0100, L500.3400, L500.2500 ####[facility] [address] [place], [address] WBC (Bld) [#/Vol] 12.1 10*3/uL High 4.4-11.0 [facility] Comment on above: Performed By: #### L 100.0100, L500.3400, L500.2500 ####[facility] [address] [place], [address] Liver Profileon 11-20-2024 Albumin [Mass/Vol] 3.3 g/dL Low 3.4-4.8 [facility] Comment on above: Performed By: #### L 100.0100, L500.3400, L500.2500 ####[facility] [address] [place], [address] ALK PHOS 116 U/L High 35-104 [facility] Comment on above: Performed By: #### L 100.0100, L500.3400, L500.2500 ####[facility] [address] [place], [address] ALT [Catalytic activity/Vol] 185 U/L High <=34 [facility] Comment on above: Performed By: #### L 100.0100, L500.3400, L500.2500 ####[facility] [address] [place], [address] AST [Catalytic activity/Vol] 58 U/L High <=31 [facility] Comment on above: Performed By: #### L 100.0100, L500.3400, L500.2500 ####[facility] [address] [place], [address] Bilirubin [Mass/Vol] 0.86 mg/dL Normal 0.00-1.30 [facility] Comment on above: Performed By: #### L 100.0100, L500.3400, L500.2500 ####[facility] [address] [place], [address] Bilirubin.direct [Mass/Vol] 0.48 mg/dL High 0.00-0.30 [facility] Comment on above: Performed By: #### L 100.0100, L500.3400, L500.2500 ####[facility] [address] [place], [address] Globulin (S) [Mass/Vol] 2.7 g/dL Normal 2.2-4.2 [facility] Comment on above: Performed By: #### L 100.0100, L500.3400, L500.2500 ####[facility] [address] [place], [address] T PROT 6.0 g/dL Normal 5.9-8.4 [facility] Comment on above: Performed By: #### L 100.0100, L500.3400, L500.2500 ####[facility] [address] [place], [address] Basic Metabolic Profile (BMP )on 11-19-2024 BUN/CRE 28.3 RATIO High 10-20 [facility] Comment on above: Performed By: #### L 501.5200, L500.3400, L100.0100, L501.2300, L500.2500 ####[facility] [address] [place], [address] Calcium [Mass/Vol] 8.5 mg/dL Normal 7.6-11.0 [facility] Comment on above: Performed By: #### L 501.5200, L500.3400, L100.0100, L501.2300, L500.2500 ####[facility] [address] [place], [address] Chloride [Moles/Vol] 113 mmol/L High 98-108 [facility] Comment on above: Performed By: #### L 501.5200, L500.3400, L100.0100, L501.2300, L500.2500 ####[facility] [address] [place], [address] CO2 [Moles/Vol] 21.0 mmol/L Normal 21.0-32.0 [facility] Comment on above: Performed By: #### L 501.5200, L500.3400, L100.0100, L501.2300, L500.2500 ####[facility] [address] [place], [address] Creatinine [Mass/Vol] 2.42 mg/dL High 0.70-1.20 [facility] Comment on above: Performed By: #### L 501.5200, L500.3400, L100.0100, L501.2300, L500.2500 ####[facility] [address] [place], [address] ECRCL 15.57 ml/min Low 50-250 [facility] Comment on above: Performed By: #### L 501.5200, L500.3400, L100.0100, L501.2300, L500.2500 ####[facility] [address] [place], [address] GAP 12 Normal 5-15 [facility] Comment on above: Performed By: #### L 501.5200, L500.3400, L100.0100, L501.2300, L500.2500 ####[facility] [address] [place], [address] GFR/1.73 sq M.predicted among non-blacks MDRD (S/P/Bld) [Vol rate/Area] 19 mL/min/{1.73_m2} Low >60 [facility] Comment on above: Result Comment: mL/m in/1.73m2 CKD-EPI Creatinine Equation (2020) Performed By: #### L 501.5200, L500.3400, L100.0100, L501.2300, L500.2500 ####[facility] [address] [place], [address] Glucose [Mass/Vol] 105 mg/dL High 70-99 [facility] Comment on above: Performed By: #### L 501.5200, L500.3400, L100.0100, L501.2300, L500.2500 ####[facility] [address] [place], [address] Potassium [Moles/Vol] 4.1 mmol/L Normal 3.3-5.1 [facility] Comment on above: Performed By: #### L 501.5200, L500.3400, L100.0100, L501.2300, L500.2500 ####[facility] [address] [place], [address] Sodium [Moles/Vol] 146 mmol/L High 133-145 [facility] Comment on above: Performed By: #### L 501.5200, L500.3400, L100.0100, L501.2300, L500.2500 ####[facility] [address] [place], [address] Urea nitrogen [Mass/Vol] 69 mg/dL High 4-19 [facility] Comment on above: Performed By: #### L 501.5200, L500.3400, L100.0100, L501.2300, L500.2500 ####[facility] [address] [place], [address] Consultation - Nephrologyon 11-19-2024 Consultation - Nephrology Normal [facility] Electrocardiogram reportOrde red By: Brendan Mclain on 11-19-2024 EKG study [facility] [address] [place] [address] 12 Lead EKG 11/17/24 1314 MR#: [id number] Acct: [id number] Name: LESLI ROSALES Rep #:[id number] : 1940 84 From: Brendan Mclain MD Attending Dr: Dr. Kevin Robles MD Status: ADM IN Ordering Dr: Reza Pedraza DO Date: 11/17/24 Location: ICU Sex: F C Admitted: 11/17/24 Test Reason : GENERAL Blood Pressure : */* mmHG Vent. Rate : 64 BPM Atrial Rate : * BPM P-R Int : * ms QRS Dur : 80 ms QT Int : 444 ms P-R-T Axes : * 38 -12 degrees QTcB Int : 458 ms Atrial fibrillation with a competing junctional pacemaker Abnormal ECG Confirmed by RAYNE POLANCO, BRENDAN ([id number]), web editor NABEEL GILLIS ([id number]) on 11/19/2024 8:27:37 AM Referred By: Confirmed By: BRENDAN MCLAIN MD 11/19/24826 Date _ Brendan Mclain MD CC: Dr. Kevin Robles MD; Dr. Reza Pedraza DO; SILVIA GUTHRIE ~ Signed [facility] Work Phone: Liver Profileon 11-19-2024 Albumin [Mass/Vol] 3.1 g/dL Low 3.4-4.8 [facility] Comment on above: Performed By: #### L 501.5200, L500.3400, L100.0100, L501.2300, L500.2500 ####[facility] [address] [place], [address] ALK PHOS 107 U/L High 35-104 [facility] Comment on above: Performed By: #### L 501.5200, L500.3400, L100.0100, L501.2300, L500.2500 ####[facility] [address] [place], [address] ALT [Catalytic activity/Vol] 212 U/L High <=34 [facility] Comment on above: Performed By: #### L 501.5200, L500.3400, L100.0100, L501.2300, L500.2500 ####[facility] [address] [place], [address] AST [Catalytic activity/Vol] 86 U/L High <=31 [facility] Comment on above: Performed By: #### L 501.5200, L500.3400, L100.0100, L501.2300, L500.2500 ####[facility] [address] [place], [address] Bilirubin [Mass/Vol] 0.65 mg/dL Normal 0.00-1.30 [facility] Comment on above: Performed By: #### L 501.5200, L500.3400, L100.0100, L501.2300, L500.2500 ####[facility] [address] [place], [address] Bilirubin.direct [Mass/Vol] 0.38 mg/dL High 0.00-0.30 [facility] Comment on above: Performed By: #### L 501.5200, L500.3400, L100.0100, L501.2300, L500.2500 ####[facility] [address] [place], [address] Globulin (S) [Mass/Vol] 2.5 g/dL Normal 2.2-4.2 [facility] Comment on above: Performed By: #### L 501.5200, L500.3400, L100.0100, L501.2300, L500.2500 ####[facility] [address] [place], [address] T PROT 5.6 g/dL Low 5.9-8.4 [facility] Comment on above: Performed By: #### L 501.5200, L500.3400, L100.0100, L501.2300, L500.2500 ####[facility] [address] [place], [address] Magnesiumon 11-19-2024 Magnesium [Mass/Vol] 2.2 mg/dL Normal 1.5-2.2 [facility] Comment on above: Performed By: #### L 501.5200, L500.3400, L100.0100, L501.2300, L500.2500 ####[facility] [address] [place], [address] Phosphoruson 11-19-2024 Phosphate [Mass/Vol] 5.8 mg/dL High 2.7-4.5 [facility] Comment on above: Performed By: #### L 501.5200, L500.3400, L100.0100, L501.2300, L500.2500 ####[facility] [address] [place], [address] Ammoniaon 11-18-2024 Ammonia (P) [Moles/Vol] 117.0 umol/L High 11-51 [facility] Comment on above: Performed By: #### L 503.5510 ####[facility] [address] [place], [address] Comprehensive Metabolic Prof ilon 11-18-2024 Albumin [Mass/Vol] 3.4 g/dL Normal 3.4-4.8 [facility] Comment on above: Performed By: #### L 500.4050, L100.0100, L501.9520, L300.3900 ####[facility] [address] [place], [address] Albumin/Globulin [Mass ratio] 1.1 {ratio} Normal 0.9-2.4 [facility] Comment on above: Performed By: #### L 500.4050, L100.0100, L501.9520, L300.3900 ####[facility] [address] [place], [address] ALK PHOS 141 U/L High 35-104 [facility] Comment on above: Performed By: #### L 500.4050, L100.0100, L501.9520, L300.3900 ####[facility] [address] [place], [address] ALT [Catalytic activity/Vol] 325 U/L High <=34 [facility] Comment on above: Performed By: #### L 500.4050, L100.0100, L501.9520, L300.3900 ####[facility] [address] [place], [address] AST [Catalytic activity/Vol] 224 U/L High <=31 [facility] Comment on above: Performed By: #### L 500.4050, L100.0100, L501.9520, L300.3900 ####[facility] [address] [place], [address] Bilirubin [Mass/Vol] 0.74 mg/dL Normal 0.00-1.30 [facility] Comment on above: Performed By: #### L 500.4050, L100.0100, L501.9520, L300.3900 ####[facility] [address] [place], [address] BUN/CRE 24.7 RATIO High 10-20 [facility] Comment on above: Performed By: #### L 500.4050, L100.0100, L501.9520, L300.3900 ####[facility] [address] [place], [address] Calcium [Mass/Vol] 9.0 mg/dL Normal 7.6-11.0 [facility] Comment on above: Performed By: #### L 500.4050, L100.0100, L501.9520, L300.3900 ####[facility] [address] [place], [address] Chloride [Moles/Vol] 106 mmol/L Normal 98-108 [facility] Comment on above: Performed By: #### L 500.4050, L100.0100, L501.9520, L300.3900 ####[facility] [address] [place], [address] CO2 [Moles/Vol] 20.1 mmol/L Low 21.0-32.0 [facility] Comment on above: Performed By: #### L 500.4050, L100.0100, L501.9520, L300.3900 ####[facility] [address] [place], [address] Creatinine [Mass/Vol] 2.24 mg/dL High 0.70-1.20 [facility] Comment on above: Performed By: #### L 500.4050, L100.0100, L501.9520, L300.3900 ####[facility] [address] [place], [address] ECRCL 16.06 ml/min Low 50-250 [facility] Comment on above: Performed By: #### L 500.4050, L100.0100, L501.9520, L300.3900 ####[facility] [address] [place], [address] GAP 14 Normal 5-15 [facility] Comment on above: Performed By: #### L 500.4050, L100.0100, L501.9520, L300.3900 ####[facility] [address] [place], [address] GFR/1.73 sq M.predicted among non-blacks MDRD (S/P/Bld) [Vol rate/Area] 21 mL/min/{1.73_m2} Low >60 [facility] Comment on above: Result Comment: mL/m in/1.73m2 CKD-EPI Creatinine Equation (2020) Performed By: #### L 500.4050, L100.0100, L501.9520, L300.3900 ####[facility] [address] [place], [address] Globulin (S) [Mass/Vol] 3.2 g/dL Normal 2.2-4.2 [facility] Comment on above: Performed By: #### L 500.4050, L100.0100, L501.9520, L300.3900 ####[facility] [address] [place], [address] Glucose [Mass/Vol] 140 mg/dL High 70-99 [facility] Comment on above: Performed By: #### L 500.4050, L100.0100, L501.9520, L300.3900 ####[facility] [address] [place], [address] Potassium [Moles/Vol] 5.0 mmol/L Normal 3.3-5.1 [facility] Comment on above: Performed By: #### L 500.4050, L100.0100, L501.9520, L300.3900 ####[facility] [address] [place], [address] Sodium [Moles/Vol] 140 mmol/L Normal 133-145 [facility] Comment on above: Performed By: #### L 500.4050, L100.0100, L501.9520, L300.3900 ####[facility] [address] [place], [address] T PROT 6.6 g/dL Normal 5.9-8.4 [facility] Comment on above: Performed By: #### L 500.4050, L100.0100, L501.9520, L300.3900 ####[facility] [address] [place], [address] Urea nitrogen [Mass/Vol] 55 mg/dL High 4-19 [facility] Comment on above: Performed By: #### L 500.4050, L100.0100, L501.9520, L300.3900 ####[facility] [address] [place], [address] Echocardiogram study reportO rdered By: Brendan Mclain on 11-18-2024 Study report [facility] [address] [place] [address] Echo Complete W/ Contrast 11/18/24 0904 MR#: [id number] Acct: [id number] Name: LESLI ROSALES Rep #:[id number] : 1940 84 From: Brendan Humphries Attending Dr: Dr. Kevin Robles MD Status: ADM IN Ordering Dr: Lorna Salvador MD Date: Location: ICU Sex: F C Admitted: 11/17/24 Reason For Study Reason For Study: Dyspnea/SOB Procedure This was a 2D Doppler, Color Flow transthoracic echocardiogram. Technically difficult study, patient scanned supine due to extreme pain when moving. Contrast injection was performed. Exam performed portable in ICU/CCU. Left Ventricle Normal LV size. The left ventricular ejection fraction is 60 %. No regional wallmotion abnormalities noted. Right Ventricle Normal RV size. Normal systolic function. Atria The left atrium is severely enlarged. The right atrium is moderately enlarged. Mitral Valve Normal mitral valve. Tricuspid Valve Normal tricuspid valve. Mild (1+) tricuspid valve insufficiency. Pulmonary artery systolic pressure is 36 mmHg. Aortic Valve Trisinus/trileaflet aortic valve. Mild focal aortic valve calcification. Pulmonic Valve Normal pulmonic valve. Great Vessels Normal aortic root. The pulmonary artery is normal size. Inferior vena cava collapse with respiration. Pericardium/Pleural No pericardial effusion. Medication Diluted definity 1ml given slow IV push to enhance endocardial definition. MMode/2D Measurements & Calculations LVIDd: 4.0 cm IVSd: 1.1 cm LVOT diam: 1.9 cm LVIDs: 2.5 cm LVPWd: 0.90 cm RVDd: 4.3 cm FS: 38.2 % LVOT area: 2.8 cm2 Ao root diam: 3.0 cm LAV(MOD-bp): 110.3 ml LA A4 area: 31.4 cm2 LAV(MOD-bp) Indexed: 65.3 ml/m2 LAV(MOD-sp2): 98.5 ml LAV(MOD-sp4): 100.8 ml LA dimension(2D): 4.1 cm TAPSE: 1.4 cm RA A4 area: 24.6 cm2 Doppler Measurements & Calculations MV E max sreekanth: 108.5 cm/sec MV V2 max: 117.4 cm/sec AoV2 max: 262.3 cm/sec MV max P.5 mmHg Aomax P.5 mmHg MV V2 mean: 65.3 cm/sec AoV2 mean: 154.3 cm/sec MV mean P.1 mmHg Aomean P.9 mmHg MV V2 VTI: 27.7 cm AoV2 VTI: 43.4 cm MVA(VTI): 2.7 cm2 AV(velocity ratio): 0.60 SHIVAM(I,D): 1.7 cm2 SHIVAM(V,D): 1.5 cm2 LV V1 max: 137.7 cm/sec SV(LVOT): 73.4 ml PAV2 max: 120.2 cm/sec LV V1 max P.6 mmHg LV V1 mean P.1 mmHg LV V1 mean: 94.1 cm/sec LV V1 VTI: 25.9 cm TR max sreekanth: 284.4 cm/sec TR max P.4 mmHg ECHO/Echo Complete W/ Contrast Interpretation Summary The left ventricular ejection fraction is 60 %. Normal LV size. The left atrium is severely enlarged. The right atrium is moderately enlarged. Mild (1+) tricuspid valve insufficiency. Ordering Physician: Lorna Salvador Performed By: Edi David RCS 11/18/24 1328 Date _ Brendan Mclain MD CC: Dr. Kevin Robles MD; Dr. Lorna Salvador MD; SILVIA GUTHRIE ~ Date Dictated: 11/18/24903 Date Transcribed: 11/18/24 1328 [employer] Professional: Signed [facility] Work Phone: International normalized rat io (INR) calculationOrdered By: Elsy Perdomo on 11-18-2024 INR Coag (Bld) [Relative time] 1.5 {INR} [facility] Prothrombin Time w/INRon INR Coag (PPP) [Relative time] 1.5 {INR} Normal [facility] Comment on above: Performed By: #### L 500.4050, L100.0100, L501.9520, L300.3900 ####[facility] [address] [place], [place], [id number] PT Coag (PPP) [Time] 18.8 s High 11.7-14.9 [facility] Comment on above: Performed By: #### L 500.4050, L100.0100, L501.9520, L300.3900 ####[facility] [address] [place], [place], [id number] Prothrombin timeOrdered By: Elsy Perdomo on 11-18-2024 PT Coag (PPP) [Time] 18.8 s High 11.7-14.9 [facility] Serum or plasma albumin/glob ulin mass ratioOrdered By: Elsy Perdomo on 11-18-2024 Albumin/Globulin [Mass ratio] 1.1 {ratio} 0.9-2.4 [facility] TSH DL <= 0.005 mIU/L QnOrde red By: Elsy Perdomo on 11-18-2024 Thyroid Stimulating Hormone (TSH) 0.997 uIU/mL 0.300-4.20 0 [facility] TSH Qn 0.997 uIU/mL 0.300-4.20 0 [facility] Thyroid Stim Hormone (TSH)on 11-18-2024 TSH 0.997 uIU/mL Normal 0.300-4.20 0 [facility] Comment on above: Performed By: #### L 500.4050, L100.0100, L501.9520, L300.3900 ####[facility] [address], [address] Venous blood ammonia measure mentOrdered By: Kevin Robles on 11-18-2024 Ammonia (P) [Moles/Vol] 117.0 umol/L High 11-51 [facility] 12 Lead EKGon 11-17-2024 12 Lead EKG Normal [facility] Absolute neutrophil countOrd ered By: Reza Pedraza on 11-17-2024 Neutrophils (Bld) [#/Vol] 18.1 10*3/uL High 2.0-7.7 [facility] Anion gap in Serum or Plasma Ordered By: Reza Pedraza on 11-17-2024 Anion gap [Moles/Vol] 18 mmol/L High 5-15 [facility] BUN/creatinine ratioOrdered By: Reza Pedraza on 11-17-2024 Urea nitrogen/Creatinine [Mass ratio] 18.2 mg/mg 10-20 [facility] Basophil percentageOrdered B y: Reza Pedraza on 11-17-2024 Basophils/100 WBC (Bld) 0.3 % 0-1 [facility] Bilirubin Test strip Ql (U)O rdered By: Reza Pedraza on 11-17-2024 Bilirubin Ql (U) Negative Negative [facility] Bilirubin, totalOrdered By: Reza Pedraza on 11-17-2024 Bilirubin [Mass/Vol] 1.19 mg/dL 0.00-1.30 [facility] Blood cultureOrdered By: Arnav Pedraza on 11-17-2024 Bacteria identified Cx Nom (Bld) No growth in [address] [facility] [address] Chest, Abd, Pelvis WO Con ton 11-17-2024 CT Chest, Abd, Pelvis WO Cont Normal [facility] Carbon dioxide, total [Moles /volume] in Central venous bloodOrdered By: Reza Pedraza on 11-17-2024 CO2 [Moles/Vol] 21.9 mmol/L 21.0-32.0 [facility] Chest 1 View (Portable)on Chest 1 View (Portable) Normal [facility] Chloride assayOrdered By: Angel Pedraza on 11-17-2024 Chloride [Moles/Vol] 102 mmol/L 98-108 [facility] Comprehensive Metabolic Prof ilon 11-17-2024 Albumin [Mass/Vol] 3.4 g/dL Normal 3.4-4.8 [facility] Comment on above: Performed By: #### L 500.4050, L100.0100, L501.5200, L501.2450, L501.2300 ####[facility] [address] [place], [address] Albumin/Globulin [Mass ratio] 1.0 {ratio} Normal 0.9-2.4 [facility] Comment on above: Performed By: #### L 500.4050, L100.0100, L501.5200, L501.2450, L501.2300 ####[facility] [address] [place], [address] ALK PHOS 143 U/L High 35-104 [facility] Comment on above: Performed By: #### L 500.4050, L100.0100, L501.5200, L501.2450, L501.2300 ####[facility] [address] [place], [address] ALT [Catalytic activity/Vol] 360 U/L High <=34 [facility] Comment on above: Performed By: #### L 500.4050, L100.0100, L501.5200, L501.2450, L501.2300 ####[facility] [address] [place], [address] AST [Catalytic activity/Vol] 294 U/L High <=31 [facility] Comment on above: Result Comment: Hemo lysis present, Results??could be affected.?? Performed By: #### L 500.4050, L100.0100, L501.5200, L501.2450, L501.2300 ####[facility] [address] [place], [address] Bilirubin [Mass/Vol] 0.97 mg/dL Normal 0.00-1.30 [facility] Comment on above: Performed By: #### L 500.4050, L100.0100, L501.5200, L501.2450, L501.2300 ####[facility] [address] [place], [address] BUN/CRE 22.7 RATIO High 10-20 [facility] Comment on above: Performed By: #### L 500.4050, L100.0100, L501.5200, L501.2450, L501.2300 ####[facility] [address] [place], [address] Calcium [Mass/Vol] 8.7 mg/dL Normal 7.6-11.0 [facility] Comment on above: Performed By: #### L 500.4050, L100.0100, L501.5200, L501.2450, L501.2300 ####[facility] [address] [place], [address] Chloride [Moles/Vol] 106 mmol/L Normal 98-108 [facility] Comment on above: Performed By: #### L 500.4050, L100.0100, L501.5200, L501.2450, L501.2300 ####[facility] [address] [place], [address] CO2 [Moles/Vol] 20.1 mmol/L Low 21.0-32.0 [facility] Comment on above: Performed By: #### L 500.4050, L100.0100, L501.5200, L501.2450, L501.2300 ####[facility] [address] [place], [address] Creatinine [Mass/Vol] 2.22 mg/dL High 0.70-1.20 [facility] Comment on above: Performed By: #### L 500.4050, L100.0100, L501.5200, L501.2450, L501.2300 ####[facility] [address] [place], [address] ECRCL 16.20 ml/min Low 50-250 [facility] Comment on above: Performed By: #### L 500.4050, L100.0100, L501.5200, L501.2450, L501.2300 ####[facility] [address] [place], [address] GAP 14 Normal 5-15 [facility] Comment on above: Performed By: #### L 500.4050, L100.0100, L501.5200, L501.2450, L501.2300 ####[facility] [address] [place], [address] GFR/1.73 sq M.predicted among non-blacks MDRD (S/P/Bld) [Vol rate/Area] 21 mL/min/{1.73_m2} Low >60 [facility] Comment on above: Result Comment: mL/m in/1.73m2 CKD-EPI Creatinine Equation (2020) Performed By: #### L 500.4050, L100.0100, L501.5200, L501.2450, L501.2300 ####[facility] [address] [place], [address] Globulin (S) [Mass/Vol] 3.2 g/dL Normal 2.2-4.2 [facility] Comment on above: Performed By: #### L 500.4050, L100.0100, L501.5200, L501.2450, L501.2300 ####[facility] [address] [place], [address] Glucose [Mass/Vol] 150 mg/dL High 70-99 [facility] Comment on above: Performed By: #### L 500.4050, L100.0100, L501.5200, L501.2450, L501.2300 ####[facility] [address] [place], [address] Potassium [Moles/Vol] 5.4 mmol/L High 3.3-5.1 [facility] Comment on above: Result Comment: Hemo lysis present, Results??could be affected.?? Performed By: #### L 500.4050, L100.0100, L501.5200, L501.2450, L501.2300 ####[facility] [address] [place], [address] Sodium [Moles/Vol] 140 mmol/L Normal 133-145 [facility] Comment on above: Performed By: #### L 500.4050, L100.0100, L501.5200, L501.2450, L501.2300 ####[facility] [address] [place], [address] T PROT 6.6 g/dL Normal 5.9-8.4 [facility] Comment on above: Performed By: #### L 500.4050, L100.0100, L501.5200, L501.2450, L501.2300 ####[facility] [address] [place], [address] Urea nitrogen [Mass/Vol] 50 mg/dL High 4-19 [facility] Comment on above: Performed By: #### L 500.4050, L100.0100, L501.5200, L501.2450, L501.2300 ####[facility] [address] [place], [address] Albumin [Mass/Vol] 3.7 g/dL Normal 3.4-4.8 [facility] Comment on above: Performed By: #### L 503.6005, L100.0100, L500.4050, L501.4021, L503.7505 ####[facility] [address] [place], [address] Albumin/Globulin [Mass ratio] 1.0 {ratio} Normal 0.9-2.4 [facility] Comment on above: Performed By: #### L 503.6005, L100.0100, L500.4050, L501.4021, L503.7505 ####[facility] [address] [place], [address] ALK PHOS 168 U/L High 35-104 [facility] Comment on above: Performed By: #### L 503.6005, L100.0100, L500.4050, L501.4021, L503.7505 ####[facility] [address] [place], [address] ALT [Catalytic activity/Vol] 435 U/L High <=34 [facility] Comment on above: Performed By: #### L 503.6005, L100.0100, L500.4050, L501.4021, L503.7505 ####[facility] [address] [place], [address] AST [Catalytic activity/Vol] 474 U/L High <=31 [facility] Comment on above: Performed By: #### L 503.6005, L100.0100, L500.4050, L501.4021, L503.7505 ####[facility] [address] [place], [address] Bilirubin [Mass/Vol] 1.19 mg/dL Normal 0.00-1.30 [facility] Comment on above: Performed By: #### L 503.6005, L100.0100, L500.4050, L501.4021, L503.7505 ####[facility] [address] [place], [address] BUN/CRE 18.2 RATIO Normal 10-20 [facility] Comment on above: Performed By: #### L 503.6005, L100.0100, L500.4050, L501.4021, L503.7505 ####[facility] [address] [place], [address] Calcium [Mass/Vol] 9.6 mg/dL Normal 7.6-11.0 [facility] Comment on above: Performed By: #### L 503.6005, L100.0100, L500.4050, L501.4021, L503.7505 ####[facility] [address] [place], [address] Chloride [Moles/Vol] 102 mmol/L Normal 98-108 [facility] Comment on above: Performed By: #### L 503.6005, L100.0100, L500.4050, L501.4021, L503.7505 ####[facility] [address] [place], [address] CO2 [Moles/Vol] 21.9 mmol/L Normal 21.0-32.0 [facility] Comment on above: Performed By: #### L 503.6005, L100.0100, L500.4050, L501.4021, L503.7505 ####[facility] [address] [place], [address] Creatinine [Mass/Vol] 2.45 mg/dL High 0.70-1.20 [facility] Comment on above: Performed By: #### L 503.6005, L100.0100, L500.4050, L501.4021, L503.7505 ####[facility] [address] [place], [address] ECRCL 15.17 ml/min Low 50-250 [facility] Comment on above: Performed By: #### L 503.6005, L100.0100, L500.4050, L501.4021, L503.7505 ####[facility] [address] [place], [address] GAP 18 High 5-15 [facility] Comment on above: Performed By: #### L 503.6005, L100.0100, L500.4050, L501.4021, L503.7505 ####[facility] [address] [place], [address] GFR/1.73 sq M.predicted among non-blacks MDRD (S/P/Bld) [Vol rate/Area] 19 mL/min/{1.73_m2} Low >60 [facility] Comment on above: Result Comment: mL/m in/1.73m2 CKD-EPI Creatinine Equation (2020) Performed By: #### L 503.6005, L100.0100, L500.4050, L501.4021, L503.7505 ####[facility] [address] [place], [address] Globulin (S) [Mass/Vol] 3.6 g/dL Normal 2.2-4.2 [facility] Comment on above: Performed By: #### L 503.6005, L100.0100, L500.4050, L501.4021, L503.7505 ####[facility] [address] [place], [address] Glucose [Mass/Vol] 160 mg/dL High 70-99 [facility] Comment on above: Performed By: #### L 503.6005, L100.0100, L500.4050, L501.4021, L503.7505 ####[facility] [address] [place], [address] Potassium [Moles/Vol] 5.1 mmol/L Normal 3.3-5.1 [facility] Comment on above: Performed By: #### L 503.6005, L100.0100, L500.4050, L501.4021, L503.7505 ####[facility] [address] [place], [address] Sodium [Moles/Vol] 142 mmol/L Normal 133-145 [facility] Comment on above: Performed By: #### L 503.6005, L100.0100, L500.4050, L501.4021, L503.7505 ####[facility] [address] [place], [address] T PROT 7.3 g/dL Normal 5.9-8.4 [facility] Comment on above: Performed By: #### L 503.6005, L100.0100, L500.4050, L501.4021, L503.7505 ####[facility] [address] [place], [address] Urea nitrogen [Mass/Vol] 45 mg/dL High 4-19 [facility] Comment on above: Performed By: #### L 503.6005, L100.0100, L500.4050, L501.4021, L503.7505 ####[facility] [address] [place], [address] Consultation - Intensiviston 11-17-2024 Consultation - Superintendent Power Normal [facility] Echo Complete W/ Contraston 11-17-2024 Echo Complete W/ Contrast Normal [facility] Emergency Department Summary on 11-17-2024 Emergency Department Summary Normal [facility] Eosinophil percentageOrdered By: Reza Pedraza on 11-17-2024 Eosinophils/100 WBC (Bld) 0.0 % 0-5 [facility] Epithelial cells.squamous LM Ql (Urine sed)Ordered By: Reza Pedraza on 11-17-2024 Epithelial cells.squamous LM.HPF (Urine sed) [#/Area] 0 /[HPF] 5-10 [facility] Erythrocyte distribution wid th ratioOrdered By: Reza Pedraza on 11-17-2024 Erythrocyte distribution width (RBC) [Ratio] 13.7 % 11.6-14.6 [facility] Erythrocyte distribution wid th standard deviationOrdered By: Reza Pedraza on 11-17-2024 Erythrocyte distribution width (RBC) [Entitic vol] 53.3 fL High 35.1-43.9 [facility] Estimation of creatinine ema aranceOrdered By: Reza Pedraza on 11-17-2024 Estimated Creatinine Clearance Calc 15.17 ml/min Low 50-250 [facility] GFR/1.73 sq M.predicted lucinda g non-blacks MDRD (S/P/Bld) [Vol rate/Area]Ordered By: Reza Pedraza on 11-17-2024 Estimated GFR (MDRD) Non-Af Amer 19 Low >60 [facility] Comment on above: mL/min/1.73m2 CKD-EP I Creatinine Equation (2020) Glucose Ql (U)Ordered By: jesi Pedraza on 11-17-2024 Urine Glucose (UA) Normal mg/dl Normal [facility] H AND P Exam - Hospitaliston 11-17-2024 H&P Exam - Hospitalist Normal [facility] HIP, UNI W/ Pelvis 2-3 Views on 11-17-2024 HIP, UNI W/ Pelvis 2-3 Views Normal [facility] Hematocrit Auto (Bld) [Volum e fraction]Ordered By: Reza Pedraza on 11-17-2024 Hematocrit (Bld) [Volume fraction] 56.6 % High 37-47 [facility] Hemoglobin measurementOrdere d By: Reza Pedraza on 11-17-2024 Hemoglobin (Bld) [Mass/Vol] 17.7 g/dL High 12.0-15.0 [facility] Immature granulocytes/100 WB C Auto (Bld)Ordered By: Reza Pedraza on 11-17-2024 Immature granulocytes/100 WBC (Bld) 0.700 % 0.0-0.9 [facility] Comment on above: IG% - Immature Granu locytes (promyelocytes, myelocytes and metamyelocytes) > 1% indicates that a LEFT SHIFT is Present. Influenza virus A and B and SARS-CoV-2 (COVID-19) and Respiratory syncytial virus RNAOrdered By: Reza Pedraza on 11-17-2024 SARS-CoV-2 (COVID-19) RNA MATY+probe Ql (Unsp spec) [facility] Ketones Test strip Ql (U)Ord ered By: Rezasalima Bonillas on 11-17-2024 Ketones Ql (U) 15 mg/dl High Negative [facility] L. pneumophila Ag Ql (U)Orde red By: Elsy Perdomo on 11-17-2024 Legionella Antigen [facility] L499.0042on 11-17-2024 Trop T High Sen 441 ng/L Invalid Interpretation Code <=14 [facility] Comment on above: Result Comment: Crit ical Result(s) Called to Donn GONZALEZ (ER): Roberto:??Results read back by same. Performed By: #### L 499.0042 ####[facility] [address] [facility] [place], [address] L499.0043on 11-17-2024 Trop T High Sen 407 ng/L Invalid Interpretation Code <=14 [facility] Comment on above: Result Comment: Crit ical Result(s) Called to Jasmin GONZALEZ (ER): Roberto:??Results read back by same. Performed By: #### L 499.0043 ####[facility] [address] [facility] [place], [address] L501.4021on 11-17-2024 Trop T High Sen 482 ng/L Invalid Interpretation Code <=14 [facility] Comment on above: Result Comment: Crit ical Result(s) Called Johnna GONZALEZ (ER): Roberto:??Results read back by same. Performed By: #### L 503.6005, L100.0100, L500.4050, L501.4021, L503.7505 ####[facility] [address] [place], [address] L503.7505on 11-17-2024 Natriuretic peptide B (Bld) [Mass/Vol] 27358 pg/mL High <=1800 [facility] Comment on above: Result Comment: Hear t Failure Unlikely: < 300 pg/mLHeart Failure Likely< 50 Years: > 450 pg/mL50-75 Years: > 900 pg/mL>75 Years: > 1800 pg/mL Performed By: #### L 503.6005, L100.0100, L500.4050, L501.4021, L503.7505 ####[facility] [address] [place], [place], [id number] Laboratory - Chemistry and C hemistry - challengeOrdered By: Reza Pedraza on 11-17-2024 AST [Catalytic activity/Vol] 474 U/L High <32 [facility] Natriuretic peptide B (Bld) [Mass/Vol] 16706 pg/mL High <1800 [facility] Comment on above: Heart Failure Unlike ly: < 300 pg/mLHeart Failure Likely< 50 Years: > 450 pg/mL50-75 Years: > 900 pg/mL>75 Years: > 1800 pg/mL Lactic Acidon 11-17-2024 Lactate [Moles/Vol] 4.1 mmol/L Invalid Interpretation Code 0.0-2.0 [facility] Comment on above: Order Comment: Y Result Comment: Crit ical Result(s) Called to Johnna GONZALEZ (ER): Roberto:??Results read back by same.Critical Result(s) Called at: by:??Results read back bysame.Critical Result(s) Called to Johnna GONZALEZ (ER): Roberto:??Results read back by same. AMENDED REPORT 11/17/242107 LACTIC ACID previously reported as: 4.1 *H mmol/LCritical Result(s) Called to Johnna GONZALEZ (ER): Roberto:??Results read back by same.Critical Result(s) Called at: by:??Results read back bysame. Performed By: #### L 503.6005, L100.0100, L500.4050, L501.4021, L503.7505 ####[facility] [address] [place], [address] Lactic acid measurementOrder ed By: Reza Pedraza on 11-17-2024 Lactate [Moles/Vol] 2.3 mmol/L Invalid Interpretation Code 0.0-2.0 [facility] Comment on above: Critical Result(s) C alled to Jonah GONZALEZ (ICU): by Skylar: Results read back by same. Result Comment: Crit ical Result(s) Called to Jonah GONZALEZ (ICU): bySkylar:??Results read back by same. Performed By: #### L 503.6007 ####[facility] [address] [place], [address] Lactate [Moles/Vol] 4.1 mmol/L High 0.0-2.0 [facility] Comment on above: Critical Result(s) C alled to Johnna GONZALEZ (ER): by Skylar: Results read back by same. Critical Result(s) Called at: by: Results read back by same.Previous reported result: 4.1 mmol/LEdited by: AUTOINS on 11/17/24:1344 AMENDED REPORT 11/17/24 1344 LACTIC ACID previously reported as: 4.1 *H mmol/L Critical Result(s) Called to Johnna GONZALEZ (ER): by Skylar: Results read back by same. Legionella Antigen Urineon 0 11-17-2024 LEGU Normal [facility] Comment on above: Performed By: #### M 100.638, M8200.1000, M300.4500, M300.4600 ####[facility] [address] [place], [address] Lipaseon 11-17-2024 Lipase [Catalytic activity/Vol] 40 U/L Normal 13-75 [facility] Comment on above: Result Comment: Phil gomez note:LIPASE revised reference range effective 22.New Lipase methodology. Expected to produce lower valuesthan the previous assay method.NEW Reference Range: 13 - 75 U/L Performed By: #### L 500.4050, L100.0100, L501.5200, L501.2450, L501.2300 ####[facility] [address] [facility] [place], [address] Lipase measurementOrdered By : Lorna Salvador on 11-17-2024 Lipase [Catalytic activity/Vol] 40 U/L 13-75 [facility] Comment on above: Please note:LIPASE r evised reference range effective 22. New Lipase methodology. Expected to produce lower values than the previous assay method. NEW Reference Range: 13 - 75 U/L Lymphocytes Auto (Unsp spec) [#/Vol]Ordered By: Reza Pedraza on 11-17-2024 Lymphocytes (Bld) [#/Vol] 1.32 10*3/uL 0.83-4.51 [facility] Lymphocytes/100 WBC Auto (Un sp spec)Ordered By: Reza Pedraza on 11-17-2024 Lymphocytes/100 WBC (Bld) 6.2 % Low 19-41 [facility] M100.678on 11-17-2024 M100.678 SARS-CoV-2 (COVID 19 ) Negative INFLUENZA A Negative INFLUENZA B Negative RSV PCR Negative Normal [facility] Comment on above: Performed By: #### M 100.678, L400.0001 ####[facility] [address] [facility]. [place], [place], [id number] M8200.1000on 11-17-2024 M8200.1000 Normal Reference Ran ge = Negative MRSA DNA Nose Ql MATY+probe GeneXpert Instrument, PCR method MRSA PCR MRSA NEGATIVE Normal [facility] Comment on above: Performed By: #### M 100.638, M8200.1000, M300.4500, M300.4600 ####[facility] [address] [facility]. [place], [place], [id number] MCV (mean corpuscular volume ) determinationOrdered By: Reza Pedraza on 11-17-2024 MCV (RBC) [Entitic vol] 104.0 fL High 81-99 [facility] MRSA DNA MATY+probe Ql (Nose) Ordered By: Elsy Perdomo on 11-17-2024 MRSA (PCR) [facility] Magnesiumon 11-17-2024 Magnesium [Mass/Vol] 2.2 mg/dL Normal 1.5-2.2 [facility] Comment on above: Performed By: #### L 500.4050, L100.0100, L501.5200, L501.2450, L501.2300 ####[facility] [address], [address] Mean corpuscular hemoglobin (MCH) determinationOrdered By: Reza Pedraza on 11-17-2024 MCH (RBC) [Entitic mass] 32.5 pg High 27.0-32.0 [facility] Mean corpuscular hemoglobin concentration (MCHC) determinationOrdered By: Reza Pedraza on 11-17-2024 MCHC (RBC) [Mass/Vol] 31.3 g/dL Low 32-36 [facility] Mean platelet volume determi nationOrdered By: Reza Pedraza on 11-17-2024 Platelet mean volume (Bld) [Entitic vol] 11.0 fL 6.2-12.0 [facility] Microscopic analysis of urin e for red blood cells (RBC)Ordered By: Reza Pedraza on 11-17-2024 Microscopic analysis of urine for red blood cells (RBC) 0 SEEN /hpf 0-5 [facility] Urine RBC 0 SEEN /hpf 0-5 [facility] Monocyte percentageOrdered B y: Reza Pedraza on 11-17-2024 Monocytes/100 WBC (Bld) 7.5 % 0-10 [facility] Mucus LM Ql (Urine sed)Order ed By: Reza Pedraza on 11-17-2024 Mucus Ql (Urine sed) 0 SEEN /hpf [facility] Nasal methicillin resistant Staphylococcus aureus (MRSA) DNA detection by PCROrdered By: Elsy Perdomo on 11-17-2024 MRSA DNA MATY+probe Ql (Nose) [facility] Neutrophil percentageOrdered By: Reza Pedraza on 11-17-2024 Neutrophils/100 WBC (Bld) 85.3 % High 47-70 [facility] Nitrite Test strip Ql (U)Ord ered By: Reza Pedraza on 11-17-2024 Nitrite Ql (U) Negative Negative [facility] No Panel InformationOrdered By: Reza Pedraza on 11-17-2024 Troponin T High Sensitivity 482 ng/L High <14 [facility] Comment on above: Critical Result(s) C bryanna Oropeza RN (ER): by Skylar: Results read back by same. Nucleated red blood cell per centageOrdered By: Reza Pedraza on 11-17-2024 Nucleated RBC/100 WBC (Bld) [Ratio] 0 % 0-5 [facility] Pathologist review Adrián (Unsp spec) [Interp]Ordered By: Reza Perdaza on 11-17-2024 Differential Pathologist's Review May foll [facility] Phosphoruson 11-17-2024 Phosphate [Mass/Vol] 7.5 mg/dL High 2.7-4.5 [facility] Comment on above: Performed By: #### L 500.4050, L100.0100, L501.5200, L501.2450, L501.2300 ####[facility] [address] [place], [place], [id number] Platelet countOrdered By: Angel Pedraza on 11-17-2024 Platelets (Bld) [#/Vol] 272 10*3/uL 150-450 [facility] Potassium (Unsp spec) [Mass/ Vol]Ordered By: Reza Pedraza on 11-17-2024 Potassium [Moles/Vol] 5.1 mmol/L 3.3-5.1 [facility] Protein Test strip Ql (U)Ord ered By: Reza Pedraza on 11-17-2024 Protein Ql (U) 30 mg/dl High Negative [facility] RBC Auto (Bld) [#/Vol]Ordere d By: Reza Pedraza on 11-17-2024 RBC (Bld) [#/Vol] 5.44 10*6/uL High 4.2-5.4 [facility] RESPIRATORY PANEL MOLECULARo n 11-17-2024 RP PANEL Normal [facility] Comment on above: Performed By: #### M 100.638, M8200.1000, M300.4500, M300.4600 ####[facility] [address] [place], [address] Respiratory pathogens DNA an d RNA panel MATY+probe (Resp)Ordered By: Elsy Perdomo on 11-17-2024 Respiratory Panel (PCR) [facility] Respiratory pathogens detect ion panel by molecular detection methodOrdered By: Elsy Perdomo on 11-17-2024 Respiratory pathogens DNA and RNA panel MATY+probe (Resp) [facility] Serum creatinine measurement (mass/volume)Ordered By: Reza Pedraza on 11-17-2024 Creatinine [Mass/Vol] 2.45 mg/dL High 0.70-1.20 [facility] Serum globulin measurementOr dered By: Reza Pedraza on 11-17-2024 Globulin (S) [Mass/Vol] 3.6 g/dL 2.2-4.2 [facility] Serum glucose measurement (m ass/volume)Ordered By: Reza Pedraza on 11-17-2024 Glucose [Mass/Vol] 160 mg/dL High 70-99 [facility] Serum or plasma alanine colbert otransferase (ALT) measurementOrdered By: Reza Pedraza on 11-17-2024 ALT [Catalytic activity/Vol] 435 U/L High <35 [facility] Serum or plasma albumin azael urement (mass/volume)Ordered By: Reza Pedraza on 11-17-2024 Albumin [Mass/Vol] 3.7 g/dL 3.4-4.8 [facility] Serum or plasma albumin/glob ulin mass ratioOrdered By: Reza Pedraza on 11-17-2024 Albumin/Globulin [Mass ratio] 1.0 {ratio} 0.9-2.4 [facility] Serum or plasma alkaline selvin sphatase measurementOrdered By: Reza Pedraza on 11-17-2024 ALP [Catalytic activity/Vol] 168 U/L High 35-104 [facility] Serum or plasma calcium azael urement (mass/volume)Ordered By: Reza Pedraza on 11-17-2024 Calcium [Mass/Vol] 9.6 mg/dL 7.6-11.0 [facility] Serum or plasma urea nitroge n measurement (mass/volume)Ordered By: Reza Pedraza on 11-17-2024 Urea nitrogen [Mass/Vol] 45 mg/dL High 4-19 [facility] Sodium levelOrdered By: Ortiz Pedraza on 11-17-2024 Sodium [Moles/Vol] 142 mmol/L 133-145 [facility] Squamous epithelial cells de tection in urine sediment by light microscopyOrdered By: Reza Pedraza on 11-17-2024 Epithelial cells.squamous LM Ql (Urine sed) 0-5 SEEN /hpf 5-10 [facility] Strep pneumoniae Antig(UR,CS F)on 11-17-2024 STPAG Normal [facility] Comment on above: Performed By: #### M 100.638, M8200.1000, M300.4500, M300.4600 ####[facility] [address] [place], [address] Streptococcus pneumoniae ant igen assayOrdered By: Elsy Perdomo on 11-17-2024 Streptococcus pneumoniae Antigen (M [facility] Total proteinOrdered By: Arnav Pedraza on 11-17-2024 Protein [Mass/Vol] 7.3 g/dL 5.9-8.4 [facility] Troponin T.cardiac High sens itivity method [Mass/Vol]Ordered By: Reza Pedraza on 11-17-2024 Troponin T High Sensitivity 4 Hour 407 ng/L High <14 [facility] Comment on above: Critical Result(s) C alled to Jasmin RN (ER): by Skylar: Results read back by louisa. Troponin T High Sensitivity 2 Hour 441 ng/L High <14 [facility] Comment on above: Critical Result(s) C alled to Donn GONZALEZ (ER): by Skylar: Results read back by louisa. Troponin T.cardiac [Mass/vol ume] in Serum or Plasma by High sensitivity methodOrdered By: Reza Pedraza on 11-17-2024 Troponin T.cardiac High sensitivity method [Mass/Vol] 407 ng/L High <14 [facility] Comment on above: Critical Result(s) C alled to Jasmin RN (ER): by Skylar: Results read back by same. Troponin T.cardiac High sensitivity method [Mass/Vol] 441 ng/L High <14 [facility] Comment on above: Critical Result(s) C alled to Donn GONZALEZ (ER): by Skylar: Results read back by same. Urinalysis, Completeon 11-17 EPI,SQUAMOUS 0-5 SEEN Normal 5-10 [facility] Comment on above: Order Comment: [id number] 0 LAC [id number] RACCLEAN CATCH Performed By: #### M 100.678, L400.0001 ####[facility] [address] [place], [address] WBC 0-5 SEEN Normal 0-5 [facility] Comment on above: Order Comment: [id number] 0 LAC [id number] RACCLEAN CATCH Performed By: #### M 100.678, L400.0001 ####[facility] [address] [place], [address] BACTERIA 0 SEEN Normal None Seen [facility] Comment on above: Order Comment: [id number] 0 LAC [id number] RACCLEAN CATCH Performed By: #### M 100.678, L400.0001 ####[facility] [address] [place], [address] Mucus Ql (Urine sed) 0 SEEN Normal [facility] Comment on above: Order Comment: [id number] 0 LAC [id number] RACCLEAN CATCH Performed By: #### M 100.678, L400.0001 ####[facility] [address] [place], [address] RBC 0 SEEN Normal 0-5 [facility] Comment on above: Order Comment: [id number] 0 LAC [id number] RACCLEAN CATCH Performed By: #### M 100.678, L400.0001 ####[facility] [address] [place], [address] Urine Legionella pneumophila antigen detectionOrdered By: Elsy Perdomo on 11-17-2024 L. pneumophila Ag Ql (U) [facility] Urine blood detectionOrdered By: Reza Pedraza on 11-17-2024 Urine Occult Blood 10 /ul High Negative [facility] Urine clarityOrdered By: Arnav Pedraza on 11-17-2024 Clarity (U) Sl. Cloudy Clear [facility] Urine color determinationOrd ered By: Reza Pedraza on 11-17-2024 Color (U) Yellow Yellow [facility] Urine glucose detectionOrder ed By: Reza Pedraza on 11-17-2024 Glucose Ql (U) Normal mg/dl Normal [facility] Urine leukocyte esterase det ection by dipstickOrdered By: Reza Pedraza on 11-17-2024 Leukocyte esterase Test strip Ql (U) 25 /ul High Negative [facility] Urine pHOrdered By: Reza miller on 11-17-2024 pH (U) 6.0 [pH] 5.0 - 8.0 [facility] Urine sediment bacteria coun t by microscopy (number/high power field)Ordered By: Reza Pedraza on 11-17-2024 Bacteria LM.HPF (Urine sed) [#/Area] 0 /[HPF] None Seen [facility] Urine specific gravity measu rementOrdered By: Reza Pedraza on 11-17-2024 Specific gravity (U) [Rel density] 1.020 1.002-1.03 0 [facility] Urine urobilinogen measureme ntOrdered By: Reza Pedraza on 11-17-2024 Urobilinogen Ql (U) 1 mg/dl High Normal [facility] Urobilinogen Ql (U)Ordered B y: Reza Pedraza on 11-17-2024 Urobilinogen (U) [Mass/Vol] 1 mg/dL High Normal [facility] White blood cell (WBC) count Ordered By: Reza Pedraza on 11-17-2024 WBC (Bld) [#/Vol] 21.2 10*3/uL High 4.4-11.0 [facility] White blood cell countOrdere d By: Reza Pedraza on 11-17-2024 Urine WBC 0-5 SEEN /hpf 0-5 [facility] White blood cell count 0-5 SEEN /hpf 0-5 [facility] ALLIED HEALTHon 10-03-2024 ALLIED HEALTH HNO ID: [id number] Author: JOMAR ARREDONDO CT Service: Radiology Author Type: Technologist Type: Allied Health Filed: 10/03/2024 18:24 Note Text: Radiology Service Progress Note PATIENT NAME: Lesli Rosales DATE OF SERVICE: October 03, 2024 TIME: 6:23 PM PATIENT IDENTITY VERIFICATION COMPLETED USING TWO (2) IDENTIFIERS: Name and Date of confirmed by patient verbally. FALL SCREENING: Has the patient had 2 falls in the last year or 1 fall with injury or currently using an Ambulatory Assistive Device (Walker, Cane, Wheelchair, Crutches, etc.)? No PATIENT GENDER DATA: Assigned female at . status: : No status: NO. PATIENT RELEVANT IMPLANT DATA REVIEWED: Not Applicable PATIENT PRESENTS WITH AN IMPLANTABLE OR ATTACHED JUNIOR COPYWRITER: No RADIOLOGY DEPARTMENT: CT; Exam(s) Completed: Spine and LSP PERIPHERAL IV DATA: Not applicable SIGNED BY: JACK Castro October 03, 2024 6:23 PM Normal [facility] CT LUMBAR SPINE WO IVCONon 0 10-03-2024 CT LUMBAR SPINE WO IVCON * * *Final Report* * * DATE OF EXAM: Oct 03 2024 6:23PM [facility] 0508 - CT LUMBAR SPINE WO IVCON / PROCEDURE REASON: Low back pain, trauma * * * * Physician Interpretation * * * * EXAMINATION: CT LUMBAR SPINE WO IVCON CLINICAL HISTORY: Low back pain, trauma TECHNIQUE: Spiral, high resolution axial unenhanced images were obtained from the thoracolumbar junction to the sacrum with sagittal and coronal planar reconstructions. MQ: [id number] CT Radiation dose: Integrated Dose-Length Product (DLP) for this visit = 870.54 mGy*cm. CT Dose Reduction Employed: Automated exposure control(AEC) and iterative recon COMPARISON: None. RESULT: Counting reference: Lumbosacral junction. For the purposes of this report, L4-5 is considered the level of the iliac crest and assume there are 5 lumbar-type vertebrae. Anatomic variant: None. Environmental Studies Department Chair (topogram) images: Alignment: There is 9 mm anterolisthesis L5-S1. There appear to be postsurgical changes at L5 laminectomy. Bone marrow /fracture: No evidence of a lytic or blastic process in the visualized spine. No evidence of acute or chronic fracture. Paraspinal soft tissues: The paraspinal soft tissues planes are maintained. Lower thoracic spine: The visualized lower thoracic bony canal and foramina are patent. L1-L2: Canal and foramina are patent. L2-L3: Canal and foramina are patent L3-L4: Canal and foramina are patent L4-L5: Prior posterior decompression/laminectomy. No obvious recurrent central canal stenosis within the constraints of the exam. No foraminal stenosis. L5-S1: Grade 2 anterolisthesis. Prior posterior decompression/laminectomy. No recurrent central canal stenosis. Mild bilateral foraminal stenosis. Sacrum and iliac wings: The visualized sacrum and iliac wings are within normal limits. IMPRESSION: 1. No acute osseous injury is seen. 2. Postsurgical changes as detailed above without evidence of recurrent central canal stenosis. Mild bilateral foraminal stenosis L5-S1. Further follow-up with MRI as clinical symptoms warrant. Anatomic Lumbar Variant: Head Tennis Professional: MALACHI Transcribe Date/Time: Oct 03 2024 8:49P Dictated by : VALENTINA STERN MD This examination was interpreted and the report reviewed and electronically signed by: VALENTINA STERN MD on Oct 03 2024 8:54PM EST [id number] Normal [facility] ED NOTEon 10-03-2024 ED NOTE HNO ID: [id number] Author: MICHELLE SEGURA RN Service: Emergency Medicine Author Type: Registered Nurse Type: ED Notes Filed: 10/03/2024 20:37 Note Text: Patient ambulating in room. Advised still waiting for CT result Normal [facility] ED NOTE HNO ID: [id number] Author: MICHELLE SEGURA RN Service: Emergency Medicine Author Type: Registered Nurse Type: ED Notes Filed: 10/03/2024 19:44 Note Text: Patient sitting up in wheelchair (patient preference), states pain is not too bad if I don't move. For documentation, asked patient for pain rating at rest, patient states 8/10. Teaching provided regarding pain scale, as not too bad is generally lower than 8. Patient states I guess it's a 5 then, but it's really bad if I move. Comfort measures offered. Patient waiting for CT results. Normal [facility] ED NOTE HNO ID: [id number] Author: JUNI SAUCEDA RN Service: Emergency Medicine Author Type: Registered Nurse Type: ED Notes Filed: 10/03/2024 18:41 Note Text: Pt denies any pain relief from meds, sts getting on and off CT table made pain worse. Normal [facility] ED NOTE HNO ID: [id number] Author: JUNI SAUCEDA RN Service: Emergency Medicine Author Type: Registered Nurse Type: ED Notes Filed: 10/03/2024 15:56 Note Text: Pt positioned for comfort and informed of wait due to ED being full. Normal [facility] ED PROV NOTEon 10-03-2024 ED PROV NOTE HNO ID: [id number] Author: DANIA GIVENS MD Service: Emergency Medicine Author Type: Physician Type: ED Provider Notes Filed: 10/03/2024 21:59 Note Text: ED Provider Note Patient Name: Lesli Rosales : 1940 SERVICE DATE: 10/03/24 History Patient presents with: Back Pain The patient is an 84-year-old female presents today with complaint of lower back pain. Patient states the pain started approximately 5 days ago. States her fell. She went to try to lift him up herself and felt a pull along her lower back. She states after that she has been having difficulty with laying down and sitting up. She also states it hurts to ambulate. She is currently under the care of pain management after having a compression fracture to her mid back. She has been taking this medication but states it is not helping. She also tried some ibuprofen without much improvement. She comes here for evaluation because she is concerned she has another compression fracture. She denies any bowel or bladder incontinence. Denies any saddle paresthesias or anesthesia. Denies any radicular pain. PAST MEDICAL HISTORY Diagnosis Date A-fib (HCC) Chronic obstructive pulmonary disease (COPD) (HCC) Hypertension Lung nodules Psoriasis Psoriatic arthritis (HCC) PAST SURGICAL HISTORY Procedure Laterality Date APPENDECTOMY BACK SURGERY HX 1985 CHOLECYSTECTOMY HX COLONOSCOPY SCREENING EGD W/O BRSH SPEC VARICIES INJ REPAIR OF RECTOCELE REPAIR UMBILICAL HERNIA 2010 SHX TOTAL SHOULDER REVERSE Right SLING OPER STRES INCONTINENCE UMBILICAL HERNIA REPAIR 5 OR OLDER 1966 VAGINAL HYSTERECTOMY FAMILY HISTORY Adopted: Yes Social History Tobacco Use Smoking status: Former Current packs/day: 0.00 Average packs/day: 1 pack/day for 17.0 years (17.0 ttl pk-yrs) Types: Cigarettes Start date: 09/22/1958 Quit date: 09/22/1975 Years since quittin.0 Smokeless tobacco: Never Vaping Use Vaping status: Never Used Substance and Sexual Activity Alcohol use: Not Currently Drug use: Never Sexual activity: Not on file ALLERGIES No Known Allergies Review of Systems Constitutional: Negative for activity change, appetite change, chills, fatigue and fever. HENT: Negative for congestion, ear pain, rhinorrhea and sore throat. Respiratory: Negative for cough and shortness of breath. Cardiovascular: Negative for chest pain and palpitations. Gastrointestinal: Negative for abdominal pain, diarrhea, nausea and vomiting. Genitourinary: Negative for dysuria, frequency and urgency. Musculoskeletal: Positive for back pain. Negative for arthralgias and myalgias. Skin: Negative for rash and wound. Neurological: Negative for dizziness and headaches. Psychiatric/Behavioral: Negative for self-injury and suicidal ideas. All other systems reviewed and are negative. Physical Exam Vitals [10/03/24 1448] BP Pulse Temp Temp src Resp SpO2 Weight Height 147/97 77 36.4 ?C (97.5 ?F) -- 20 (!) 93 % 68.5 kg (151 lb) -- Physical Exam Vitals and nursing note reviewed. Constitutional: General: She is not in acute distress. Appearance: She is well-developed. HENT: Head: Normocephalic and atraumatic. Nose: Nose normal. Mouth/Throat: Mouth: Mucous membranes are moist. Eyes: Pupils: Pupils are equal, round, and reactive to light. Cardiovascular: Rate and Rhythm: Normal rate and regular rhythm. Heart sounds: Normal heart sounds. No murmur heard. No friction rub. No gallop. Pulmonary: Effort: Pulmonary effort is normal. No respiratory distress. Breath sounds: Normal breath sounds. No stridor. No wheezing, rhonchi or rales. Abdominal: General: Bowel sounds are normal. There is no distension. Palpations: Abdomen is soft. Tenderness: There is no abdominal tenderness. Musculoskeletal: General: Normal range of motion. Cervical back: Normal range of motion and neck supple. Right lower leg: No edema. Left lower leg: No edema. Comments: Evaluation of the patient's back shows no tenderness palpation to the cervical spine. She has midthoracic tenderness palpation but states that this is her chronic pain from her compression fracture. She also has tenderness palpation along L4-S1 both midline as well as paraspinally. Skin: General: Skin is warm and dry. Neurological: General: No focal deficit present. Mental Status: She is alert and oriented to person, place, and time. GCS: GCS eye subscore is 4. GCS verbal subscore is 5. GCS motor subscore is 6. Sensory: Sensation is intact. Motor: Motor function is intact. Coordination: Coordination is intact. Gait: Gait is intact. Comments: 5 Out of 5 strength of bilateral lower extremities with both flexion extension at the knee as well as dorsiflexion and plantarflexion. She also has 5 of 5 strength with flexion and extension of the great toe bilaterally. Psychiatric: Mood and Affect: Mood normal. B (more content not included)... Normal [facility] CARDIO IQ(R) NT PROBNPon Natriuretic peptide B (Bld) [Mass/Vol] 1066 pg/mL High <450 [facility] Comment on above: Order Comment: 0 Performed By: #### 9 1739 #### [facility] [address] [place] [address], [address] [place] [address] Estimating Manager: Terry Beckwith 09-19-2024 MARJN Telephone (PATWS) LESLI ROSALES ([id number]) 1940 F Date Time Provider Department 09/19/24 REJI ALEXANDER During your visit today, we recorded the following information about you: Tracy Mota LPN 09/19/2024 8:[address] [facility] call on behave of Dr. Ariadne Guthrie. Dr. Guthrie is questioning why patient is not on a controller inhaler. Please call office back at [phone]. TracyPATSY Meek Kathleen, LPN 09/19/2024 9:38 AM Signed Spoke with Cesia at [facility]. Per our office records, patient was advised to continue Symbicort BID and Spiriva once per day. Will fax CT report and HANDP to Dr. Guthrie ([phone]) Akshat Bermudez LPN Allergies As of Date: 09/19/2024 (No Known Allergies) Date Reviewed: 09/12/2024 Reviewed by: Keely Givens MD - Fully Assessed Prescriptions as of 09/19/2024 - amitriptyline (ELAVIL) 25 mg tablet 25 mg daily at bedtime. - levoFLOXacin (LEVAQUIN) 500 mg tablet Take 1 tablet by mouth once daily for 7 days. - hydroCHLOROthiazide 12.5 mg capsule TAKE 1 CAPSULE BY MOUTH ONCE DAILY - famotidine (PEPCID) 20 mg tablet TAKE 1 TABLET BY MOUTH ONCE DAILY - atenolol (TENORMIN) 25 mg tablet Take 1 tablet by mouth once daily. - rivaroxaban (XARELTO) 20 mg tablet Take 1 tablet by mouth daily with dinner. - tiotropium (SPIRIVA WITH HANDIHALER) 18 mcg inhalation capsule inhale THE CONTENTS OF ONE CAPSULE IN THE HANDIHALER every morning - budesonide-formoterol (SYMBICORT) 160-4.5 mcg/actuation inhaler Inhale 2 Puffs as instructed two times a day. - lidocaine (LIDODERM) 5 % - gabapentin (NEURONTIN) 100 mg capsule Take 100 mg by mouth three times a day. - hydrOXYzine HCl (ATARAX) 25 mg tablet Take 1 tablet by mouth three times a day as needed. - risankizumab-rzaa (SKYRIZI) 150 mg/mL injection Inject 150 mg subcutaneously every 3 months. - albuterol HFA (PROVENTIL HFA, VENTOLIN HFA) 90 mcg/actuation inhaler - baclofen (LIORESAL) 5 mg tablet Take 5 mg by mouth twice daily. - betamethasone valerate 0.1 % cream Apply to affected area once daily. 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] 07/05/2022 Cervical spondylosis [M47.812] 07/05/2022 Chronic obstructive pulmonary disease (HCC) [J4*07/05/2022 Chronic atrial fibrillation (HCC) [I48.20] 07/05/2022 HTN (hypertension), benign [I10] 07/05/2022 Psoriasis, unspecified [L40.9] 07/05/2022 Chronic midline low back pain without sciatica *07/05/2022 Psoriatic arthritis (HCC) [L40.50] 07/05/2022 Restrictive lung disease [J98.4] 06/16/2023 Lung nodules [R91.8] 06/16/2023 Preop examination [Z01.818] 08/07/2023 Paroxysmal atrial fibrillation (HCC) [I48.0] 08/07/[address] scan, colon [R93.3] 08/07/2023 Chronic constipation [K59.09] 08/07/2023 Interstitial pulmonary disease (HCC) [J84.9] 12/28/2023 Idiopathic pulmonary fibrosis (HCC) [J84.112] 01/17/2024 09/12/2024 Obesity, Class I, BMI 30-34.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] 01/17/2024 Mild memory disturbances not amounting to demen*01/17/2024 Encounter Status:Closed by AKSHAT BERMUDEZ on 09/19/24 Normal [facility] CBC (H/H, RBC, INDICES, WBC, PLT)on 09-17-2024 Erythrocyte distribution width (RBC) [Ratio] 11.9 % Normal 11.0-15.0 [facility] Comment on above: Performed By: #### 2 13, 4730, 927, 3817, 1005, 84039, 13108, 8573 #### [facility] [address], [address] [place] [id number] Estimating Manager: Christiano Rapp MD Hematocrit (Bld) [Volume fraction] 48.1 % High 35.0-45.0 [facility] Comment on above: Performed By: #### 2 13, 1759, 927, 6517, 1005, 65746, 72600, 8525 #### [facility] [address], [address] [place] [address] Estimating Manager: Christiano Rapp MD Hemoglobin (Bld) [Mass/Vol] 15.9 g/dL High 11.7-15.5 [facility] Comment on above: Performed By: #### 2 13, 175, 927, 6517, 1005, 19750, 83122, 8525 #### [facility] [place] [address] Estimating Manager: Christiano Rapp MD MCH (RBC) [Entitic mass] 32.3 pg Normal 27.0-33.0 [facility] Comment on above: Performed By: #### 2 , 175, 927, 6517, 1005, 50275, 54397, 8525 #### [facility] [place] [address] Estimating Manager: Christiano Rapp MD MCHC (RBC) [Mass/Vol] 33.1 g/dL Normal 32.0-36.[address] [facility] Comment on above: Result Comment: For adults, a slight decrease in the calculated MCHC value (in the range of 30 to 32 g/dL) is most likely not clinically significant; however, it should be interpreted with caution in correlation with other red cell parameters and the patient's clinical condition. Performed By: #### 2 13, 1759, 927, 6517, 1005, 23337, 44639, 8525 #### [facility] [place] [address] Estimating Manager: Christiano Rapp MD MCV (RBC) [Entitic vol] 97.8 fL Normal 80.0-100.0 [facility] Comment on above: Performed By: #### 2 13, 1759, 927, 6517, 1005, 04237, 35076, 8525 #### [facility] [place] [address] Estimating Manager: Christiano Rapp MD Platelet mean volume (Bld) [Entitic vol] 11.4 fL Normal 7.5-12.5 [facility] Comment on above: Performed By: #### 2 13, 1759, 927, 6517, 1005, 22694, 02088, 8525 #### [facility] [place] [address] Estimating Manager: Christiano Rapp MD Platelets (Bld) [#/Vol] 181 10*3/uL Normal 140-400 [facility] Comment on above: Performed By: #### 2 13, 1759, 927, 6517, 1005, 98343, 42271, 8525 #### [facility] [place] [address] Estimating Manager: Christiano Rapp MD RBC (Bld) [#/Vol] 4.92 10*6/uL Normal 3.80-5.10 [facility] Comment on above: Performed By: #### 2 13, 1759, 927, 6517, 1005, 00516, 84762, 8525 #### [facility] [place] [address] Estimating Manager: Christiano Rapp MD WBC (Bld) [#/Vol] 7.7 10*3/uL Normal 3.8-10.8 [facility] Comment on above: Performed By: #### 2 13, 1759, 927, 6517, 1005, 48612, 24312, 8525 #### [facility] [place] [address] Estimating Manager: Christiano Rapp MD [facility]AB[facility] 09-17-2024 Albumin [Mass/Vol] 3.8 g/dL Normal 3.6-5.1 [facility] Comment on above: Performed By: #### 2 13, 1759, 927, 6517, 1005, 31810, 86202, 8525 #### [facility] [place] [address] Estimating Manager: Christiano Rapp MD Albumin/Globulin [Mass ratio] 1.5 {ratio} Normal 1.0-2.5 [facility] Comment on above: Performed By: #### 2 13, 1759, 927, 6517, 1005, 47406, 28094, 8525 #### [facility] [place] [address] Estimating Manager: Christiano Rapp MD ALP [Catalytic activity/Vol] 79 U/L Normal 37-153 [facility] Comment on above: Performed By: #### 2 13, 1759, 927, 6517, 1005, 10771, 00838, 8525 #### [facility] [place] [address] Estimating Manager: Christiano Rapp MD ALT [Catalytic activity/Vol] 14 U/L Normal 6-29 [facility] Comment on above: Performed By: #### 2 13, 1759, 927, 6517, 1005, 45328, 68678, 8525 #### [facility] [facility] [place] [address] Estimating Manager: Chritsiano Rapp MD AST [Catalytic activity/Vol] 18 U/L Normal 10-35 [facility] Comment on above: Performed By: #### 2 13, 1759, 927, 6517, 1005, 82568, 83094, 8525 #### [facility] [place] [address] Estimating Manager: Christiano Rapp MD Bilirubin [Mass/Vol] 1.1 mg/dL Normal 0.2-1.2 Ques t [facility] Comment on above: Performed By: #### 2 13, 1759, 927, 6517, 1005, 30657, 82285, 8525 #### [facility] [place] [address] Estimating Manager: Christiano Rapp MD Calcium [Mass/Vol] 9.4 mg/dL Normal 8.6-10.4 [facility] Comment on above: Performed By: #### 2 13, 1759, 927, 6517, 1005, 15763, 32857, 8525 #### [facility] of [address], [address] [place] [address] Estimating Manager: Christiano Rapp MD Chloride [Moles/Vol] 104 mmol/L Normal 98-110 [facility] t [facility] Comment on above: Performed By: #### 2 13, 1759, 927, 6517, 1005, 24127, 44919, 8525 #### [facility] [address], [address] [place] [address] Estimating Manager: Christiano Rapp MD CO2 [Moles/Vol] 30 mmol/L Normal 20-32 [facility] Comment on above: Performed By: #### 2 13, 175, 92, 6517, 1005, 94346, 70423, 8525 #### [facility] [address], [address] [place] [address] Estimating Manager: Christiano Rapp MD Creatinine [Mass/Vol] 0.47 mg/dL Low 0.60-0.[address] [facility] Comment on above: Performed By: #### 2 13, 1759, 927, 6517, 1005, 75398, 72848, 8525 #### [facility] [address], [address] [place] [address] Estimating Manager: Christiano Rapp MD GFR/1.73 sq M.predicted among non-blacks MDRD (S/P/Bld) [Vol rate/Area] 94 mL/min/{1.73_m2} Normal > OR = 60 [facility] Comment on above: Performed By: #### 2 13, 175, 927, 6517, 1005, 80115, 48774, 8525 #### [facility] [address], [address] [place] [address] Estimating Manager: Christiano Rapp MD Globulin (S) [Mass/Vol] 2.6 g/dL Normal 1.9-3.7 [facility] Comment on above: Performed By: #### 2 13, 1759, 927, 6517, 1005, 25088, 01646, 8525 #### [facility] [place] [address] Estimating Manager: Christiano Rapp MD Glucose [Mass/Vol] 84 mg/dL Normal 65-99 [facility] Comment on above: Result Comment: Fasting reference interval Performed By: #### 2 13, 1759, 927, 6517, 1005, 05235, 04911, 8525 #### [facility] [place] [address] Estimating Manager: Christiano Rapp MD Potassium [Moles/Vol] 3.7 mmol/L Normal 3.5-5.[address] [facility] [address] [facility] Comment on above: Performed By: #### 2 13, 1759, 927, 6517, 1005, 91946, 86376, 8525 #### [facility] [place] [address] Estimating Manager: Christiano Rapp MD Protein [Mass/Vol] 6.4 g/dL Normal 6.1-8.1 [facility] Comment on above: Performed By: #### 2 13, 1759, 927, 6517, 1005, 56059, 37468, 8525 #### [facility] [place] [address] Estimating Manager: Christiano Rapp MD Sodium [Moles/Vol] 145 mmol/L Normal 135-146 [facility] Comment on above: Performed By: #### 2 13, 1759, 927, 6517, 1005, 80405, 95694, 8525 #### [facility] [place] [address] Estimating Manager: Christiano Rapp MD Urea nitrogen [Mass/Vol] 18 mg/dL Normal 7-25 [facility] Comment on above: Performed By: #### 2 13, 1759, 927, 6517, 1005, 58682, 91655, 8525 #### [facility] [address], [address] [place] [address] Estimating Manager: Christiano Rapp MD Urea nitrogen/Creatinine [Mass ratio] 38 mg/mg High 6- [facility] Comment on above: Performed By: #### 2 13, 1759, 927, 6517, 1005, 16848, 94131, 8525 #### [facility] [address], [address] [place] [address] Estimating Manager: Christiano Rapp MD LIPID PANEL, [facility] [place] - Cholesterol [Mass/Vol] 152 mg/dL Normal <200 [facility] Comment on above: Order Comment: 0 0 Performed By: #### 1 0231, 899, 1759, 7600, 78813 #### [facility] [address], [address] [place] [address] Estimating Manager: Christiano Rapp MD Cholesterol in HDL [Mass/Vol] 56 mg/dL Normal > OR = 50 [facility] Comment on above: Order Comment: 0 0 Performed By: #### 1 0231, 899, 1759, 7600, 43741 #### [facility] [address], [address] [place] [address] Estimating Manager: Christiano Rapp MD Cholesterol in LDL [Mass/Vol] 79 mg/dL Normal [facility] Comment on above: Order Comment: 0 0 Result Comment: Refe rence range: <100 Desirable range <100 mg/dL for primary prevention; <70 mg/dL for patients with CHD or diabetic patients with > or = 2 CHD risk factors. LDL-C is now calculated using the Sharron calculation, which is a validated novel method providing better accuracy than the Friedewald equation in the estimation of LDL-C. Andrea SS et al. ROWDY. 2013;310(19): 7156-2195 (http://education.Fundraise.com.NeuroLogica/faq/YJR473) Performed By: #### 1 0231, 899, 1759, 7600, 02730 #### [facility] [address], [address] [place] [address] Estimating Manager: Christiano Rapp MD Cholesterol.total/Cho lesterol in HDL [Mass ratio] 2.7 {ratio} Normal <5.0 [facility] Comment on above: Order Comment: 0 0 Performed By: #### 1 0231, 899, 1759, 7600, 60933 #### [facility] [address], [address] [place] [address] Estimating Manager: Christiano Rapp MD NON HDL CHOLESTEROL 96 mg/dL (calc) Normal <130 [facility] Comment on above: Order Comment: 0 0 Result Comment: For patients with diabetes plus 1 major ASCVD risk factor, treating to a non-HDL-C goal of <100 mg/dL (LDL-C of <70 mg/dL) is considered a therapeutic option. Performed By: #### 1 0231, 899, 1759, 7600, 07164 #### [facility] [place] [address] Estimating Manager: Christiano Rapp MD Triglyceride [Mass/Vol] 83 mg/dL Normal <150 [facility] Comment on above: Order Comment: 0 0 Performed By: #### 1 0231, 899, 1759, 7600, 28583 #### [facility] [place] [address] Estimating Manager: Christiano Rapp MD TSHon 09-17-2024 TSH Qn 0.92 m[IU]/L Normal 0.40-4.50 [facility] Comment on above: Performed By: #### 2 13, 1759, 927, 6517, 1005, 01622, 31594, 8502 #### [facility] [place] [address] Estimating Manager: Christiano Rapp MD VITAMIN D,25-OH,TOTAL,IAon 0 09-17-2024 VITAMIN D,25-OH,TOTAL,IA 21 ng/mL Low 30-100 [facility] Comment on above: Result Comment: Estephania min D Status 25-OH Vitamin D: Deficiency: <20 ng/mL Insufficiency: 20 - 29 ng/mL Optimal: > or = 30 ng/mL For 25-OH Vitamin D testing on patients on D2-supplementation and patients for whom quantitation of D2 and D3 fractions is required, the QuestAssureD(TM) 25-OH VIT D, (D2,D3), LC/MS/MS is recommended: order code 12364 (patients >2yrs). See Note 1 Note 1 For additional information, please refer to http://education.Stroho/faq/LTH757 (This link is being provided for informational/ educational purposes only.) Performed By: #### 2 13, 1759, 927, 6517, 1005, 23672, 61568, 8520 #### [facility] [address], [address] [place] [id number] Estimating Manager: Christiano Rapp MD CNCOon 09-16-2024 CNCO Letter Text Normal [facility] CNOVon 09-12-2024 CNOV Office Visit (PULMWS ) CONNIELESLI ([id number]) 1940 F Date Time Provider Department 09/12/24 11:45 AM KEELY GIVENS PULMWS During your visit today, we recorded the following information about you: Pulse Respiration Blood pressure Weight 104/minute 18/minute 122/84 72.6 kg Keely Givens MD 09/12/2024 1:47 PM Signed . [facility] [place] Note Patient name: Lesli Rosales PCP: Giselle Elizondo MD CC: Follow-up chest CT HPI: Lesli Rosales 84 year old female former less than 48-loac-ibso smoker, quitting in 1975 with PMH significant for obesity, PAF, COPD, HTN, psoriatic arthritis, pulmonary nodules, chronic hypoxemic respiratory failure who was initially seen for possible pulmonary fibrosis. She was transferring her pulmonary care from the [facility]. I had no records, unable to obtain records after several attempts and patient is a very poor historian. Updated her chest CT which showed scattered calcified and non calcified pulmonary nodules, largest in her right upper lobe, minimal bronchiectasis, minimal reticulations, and adjacent ground glass infiltrate to the largest calcified nodule. Therapy for her COPD consists of Symbicort and Spiriva. She presents today to review her CT of the chest. Her chest CT shows improvement in the groundglass opacity adjacent to her right upper lobe calcified nodule, however, she has new nodular infiltrate in the lingula along with atelectasis and more prominent nodules in her left lower lobe. Official reading is pending. She states that she has been short of breath more in the morning and has been using her oxygen more regularly. She has had significant throat clearing and some hoarseness/decreased phonation. She has attributed this to postnasal drip. She has not been ill with any upper respiratory infection. She has had some chest congestion but is unable to expectorate any phlegm. No fevers or chills. No wheezing. DATA: Imaging / Diagnostic Studies: Chest CT 12/2023: Chest CT today: Chest CT reviewed with interpretation per HPI PAST MEDICAL HISTORY Diagnosis Date A-fib (HCC) Chronic obstructive pulmonary disease (COPD) (HCC) Hypertension Lung nodules Psoriasis Psoriatic arthritis (HCC) ALLERGIES No Known Allergies amitriptyline (ELAVIL) 25 mg tablet 25 mg daily at bedtime. hydroCHLOROthiazide 12.5 mg capsule TAKE 1 CAPSULE BY MOUTH ONCE DAILY famotidine (PEPCID) 20 mg tablet TAKE 1 TABLET BY MOUTH ONCE DAILY atenolol (TENORMIN) 25 mg tablet Take 1 tablet by mouth once daily. rivaroxaban (XARELTO) 20 mg tablet Take 1 tablet by mouth daily with dinner. tiotropium (SPIRIVA WITH HANDIHALER) 18 mcg inhalation capsule inhale THE CONTENTS OF ONE CAPSULE IN THE HANDIHALER every morning budesonide-formoterol (SYMBICORT) 160-4.5 mcg/actuation inhaler Inhale 2 Puffs as instructed two times a day. gabapentin (NEURONTIN) 100 mg capsule Take 100 mg by mouth three times a day. hydrOXYzine HCl (ATARAX) 25 mg tablet Take 1 tablet by mouth three times a day as needed. risankizumab-rzaa (SKYRIZI) 150 mg/mL injection Inject 150 mg subcutaneously every 3 months. levoFLOXacin (LEVAQUIN) 500 mg tablet Take 1 tablet by mouth once daily for 7 days. lidocaine (LIDODERM) 5 % albuterol HFA (PROVENTIL HFA, VENTOLIN HFA) 90 mcg/actuation inhaler baclofen (LIORESAL) 5 mg tablet Take 5 mg by mouth twice daily. betamethasone valerate 0.1 % cream Apply to affected area once daily. Apply to arms Social History Tobacco Use Smoking status: Former Current packs/day: 0.00 Average packs/day: 1 pack/day for 17.0 years (17.0 ttl pk-yrs) Types: Cigarettes Start date: 09/22/1958 Quit date: 09/22/1975 Years since quittin.0 Smokeless tobacco: Never Vaping Use Vaping status: Never Used Substance Use Topics Alcohol use: Not Currently Drug use: Never FAMILY HISTORY Adopted: Yes PMH, Social history, family history and surgical history reviewed and updated in EMR REVIEW OF SYSTEMS: CONSTITUTIONAL: No fevers, chills, nightsweats, unintended weight loss HEENT: Some nasal congestion/sinus symptoms CARDIOVASCULAR: No chest pain, palpitations, orthopnea. Mild edema PULM: See HPI GI: No dysphagia/odynophagia, problematic reflux NEURO: No new balance problems, peripheral weakness/paresthesias or numbness of concern. PHYSICAL EXAMINATION: BP 122/84 Pulse 104 Resp 18 Wt 160 lb (72.6kg) SpO2 91% General Appearance: Obese elderly female, NAD. Skin: Skin color, texture, turgor normal, no suspicious rashes or lesions. Head: Normocephalic, no masses, lesions, tenderness or abnormalities. Oropharynx: No oral lesions or thrush. Neck: No masses or adenopathy. Chest wall: Kyphosis Lungs: Not labored, normal to percussion, scattered crackles. Heart: Regular rate and rhythm, systolic murm (more content not included)... Normal [facility] CT CHEST WO IVCONon 09-12-19 CT CHEST WO IVCON * * *Final Report* * * DATE OF EXAM: Sep 12 2024 11:48AM [facility] 0541 - CT CHEST WO IVCON / PROCEDURE REASON: multiple diagnoses * * * * Physician Interpretation * * * * EXAMINATION: CHEST CT WITHOUT CONTRAST CLINICAL HISTORY: Lung nodules. Groundglass opacity Technique: Spiral CT acquisition of the chest from the thoracic inlet to the upper abdomen without contrast. MQ: [id number] CT Radiation dose: Integrated Dose-length product (DLP) for this visit = 363 mGy*cm CT Dose Reduction Employed: Automated exposure control(AEC) and iterative recon Comparison: 01/19/2024 RESULT: Limitations: None. Lines, tubes, and devices: None. Lung parenchyma and airways: Mild subpleural consolidation most compatible with scarring in the lingula series 7 image 98 and in the lateral left lower lobe image 141. Central airways appear patent with mild bronchiectasis present. Left upper lobe nodule is slightly smaller on the current examination measuring approximately 6 mm series 7 image 61. Left lower lobe 4 mm nodule is stable image 98. Calcified granuloma of the right middle lobe again seen image 99. Other small nodules for example right upper lobe measuring 3 mm image 87. Pleural space: No pleural effusion. No pleural thickening. Lower neck, lymph nodes, and mediastinum: Imaged thyroid gland appears unremarkable. No mediastinal or axillary lymphadenopathy is seen. Heart, pericardium, and thoracic vessels: Atherosclerotic calcifications of the thoracic aorta. Mild enlargement of cardiac chambers is seen. There are moderate coronary calcifications seen diffusely however exam is not optimized to evaluate the coronary vasculature. Ectasia of the ascending thoracic aorta which measures 4.2 cm series 5 image 84. Mild enlargement main pulmonary artery which measures 4 cm image 78. Bones and soft tissues: Severe degenerative changes of the spine with osteopenia. Upper abdomen: Adrenal glands appear unremarkable. Localizer images: No additional findings. IMPRESSION: Mild scarring in the lingula and left lower lobe. Mild bronchiectasis. Pulmonary nodules measuring up to 6 mm continued follow-up is recommended. Incidental Finding: Follow-up Acuity: Incidental Finding: Solid: 6-8 mm (solitary nodule) Routing Code: RI_1 Recommendation: CT Chest WO IVCON Time Frame: 6-12 months Comments: If stable on follow-up imaging, a repeat chest CT exam in 12 months (18-24 months from the initial exam) is recommended --END OF FINDING-- Head Tennis Professional: MALACHI Transcribe Date/Time: Sep 15 2024 7:49P Dictated by : CHESTER CALVERT MD This examination was interpreted and the report reviewed and electronically signed by: CHESTER CALVERT MD on Sep 15 2024 7:53PM EST [id number] ACTIONABLE Invalid Interpretation Code [facility] Quantiferon TB-Gold+on 08-31 QFT MITOGEN BISMARK > 10.00 Normal . [facility] Comment on above: Performed By: #### L 3400.8000 ####[facility] [address] [place], [place], [id number] QFT NIL VALUE 0.04 IU/mL Normal . [facility] Comment on above: Performed By: #### L 3400.8000 ####[facility] [address] [place], [place], [id number] QFT TB GOLD+ Comment Normal . [facility] Comment on above: Result Comment: Shayne tiFERON-TB Gold Plus is a qualitative indirect test forM tuberculosis infection (including disease) and isintended for use in conjunction with risk assessment,radiography, and other medical and diagnostic evaluations.The QuantiFERON-TB Gold Plus result is determined bysubtracting the Nil value from either TB antigen (Ag)value. The Mitogen tube serves as a control for the test. Performed By: #### L 3400.8000 ####[facility] [address] [place], [place], [id number] QFT TB POS CRIT Negative Normal Negative [facility] Comment on above: Result Comment: No r esponse to M tuberculosis antigens detected.Infection with M tuberculosis is unlikely, but high riskindividuals should be considered for additional testing(ATS/IDSA/CDC Clinical Practice Guidelines, 2017). Thereference range is an Antigen minus Nil result of <0.35IU/mL.The specimen received for QuantiFERON testing was incubatedby the ordering institution. Specific procedures outlinedin our Directory of Services and in the package insert forthe QuantiFERON Gold (In Tube) test must be followed toenable for proper stimulation of cells for the productionof interferon gamma. Chemiluminescence immunoassaymethodologyPerformed at: [facility] [facility] [id number] Director: Brady Posey PhD, Phone: [phone] Performed By: #### L 3400.8000 ####[facility] [address] [place], [address] QFT TB1+ AG BISMARK 0.05 IU/mL Normal . [facility] Comment on above: Performed By: #### L 3400.8000 ####[facility] [address] [place], [address] QFT TB2+ AG BISMARK 0.04 IU/mL Normal . [facility] Comment on above: Performed By: #### L 3400.8000 ####[facility] [address] [place], [address] M. tuberculosis tuberculin s eula IFN-g Ql (Bld)Ordered By: Reji Bennett on 08-29-2024 TB Test (QFT) Antigen 1 0.05 IU/mL . [facility] Quantiferon-TB Gold Plus maria isabel tOrdered By: Reji Bennett on 08-29-2024 TB Test (QFT) Comment . [facility] Comment on above: QuantiFERON-TB Gold Plus is a qualitative indirect test forM tuberculosis infection (including disease) and isintended for use in conjunction with risk assessment,radiography, and other medical and diagnostic evaluations.The QuantiFERON-TB Gold Plus result is determined bysubtracting the Nil value from either TB antigen (Ag)value. The Mitogen tube serves as a control for the test. TB Test (QFT) Antigen 2 0.04 IU/mL . [facility] TB Test (QFT) Mitogen > 10.00 IU/mL . [facility] TB Test (QFT) Nil 0.04 IU/mL . [facility] TB Test (QFT) Positive Criteria Negative Negative [facility] Comment on above: No response to M tub erculosis antigens detected.Infection with M tuberculosis is unlikely, but high riskindividuals should be considered for additional testing(ATS/IDSA/CDC Clinical Practice Guidelines, 2017). Thereference range is an Antigen minus Nil result of <0.35IU/mL.The specimen received for QuantiFERON testing was incubatedby the ordering institution. Specific procedures outlinedin our Directory of Services and in the package insert forthe QuantiFERON Gold (In Tube) test must be followed toenable for proper stimulation of cells for the productionof interferon gamma. Chemiluminescence immunoassaymethodologyPerformed at: [facility] [id number] Director: Brady Posey PhD, Phone: [phone] Tang 08-16-2024 PRITI Telephone (Hexago) LESLI ROSALES ([id number]) 1940 F Date Time Provider Department 08/16/24 GISELLE ELIZONDO During your visit today, we recorded the following information about you: Marjorie Redman LPN 08/16/2024 3:44 PM Signed Received 08/16/2024 from [facility]. Placed in provider's inbox for review. Route to [place] for faxing. Allergies As of Date: 08/16/2024 (No Known Allergies) Date Reviewed: 07/10/2024 Reviewed by: Marjorie Redman LPN - Fully Assessed Reason for Visit: Received Outside Medical Records [[id number]] Cmt: [facility] Orders for oxygen. 07/30/2024 Prescriptions as of 08/16/2024 - hydroCHLOROthiazide 12.5 mg capsule TAKE 1 CAPSULE BY MOUTH ONCE DAILY - famotidine (PEPCID) 20 mg tablet TAKE 1 TABLET BY MOUTH ONCE DAILY - atenolol (TENORMIN) 25 mg tablet Take 1 tablet by mouth once daily. - rivaroxaban (XARELTO) 20 mg tablet Take 1 tablet by mouth daily with dinner. - tiotropium (SPIRIVA WITH HANDIHALER) 18 mcg inhalation capsule inhale THE CONTENTS OF ONE CAPSULE IN THE HANDIHALER every morning - budesonide-formoterol (SYMBICORT) 160-4.5 mcg/actuation inhaler Inhale 2 Puffs as instructed two times a day. - lidocaine (LIDODERM) 5 % - gabapentin (NEURONTIN) 100 mg capsule Take 100 mg by mouth three times a day. - hydrOXYzine HCl (ATARAX) 25 mg tablet Take 1 tablet by mouth three times a day as needed. - risankizumab-rzaa (SKYRIZI) 150 mg/mL injection Inject 150 mg subcutaneously every 3 months. - albuterol HFA (PROVENTIL HFA, VENTOLIN HFA) 90 mcg/actuation inhaler - baclofen (LIORESAL) 5 mg tablet Take 5 mg by mouth twice daily. - betamethasone valerate 0.1 % cream Apply to affected area once daily. 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] 07/05/2022 Cervical spondylosis [M47.812] 07/05/2022 Chronic obstructive pulmonary disease (HCC) [J4*07/05/2022 Chronic atrial fibrillation (HCC) [I48.20] 07/05/2022 HTN (hypertension), benign [I10] 07/05/2022 Psoriasis, unspecified [L40.9] 07/05/2022 Chronic midline low back pain without sciatica *07/05/2022 Psoriatic arthritis (HCC) [L40.50] 07/05/2022 Restrictive lung disease [J98.4] 06/16/2023 Lung nodules [R91.8] 06/16/2023 Preop examination [Z01.818] 08/07/2023 Paroxysmal atrial fibrillation (HCC) [I48.0] 08/07/[address] scan, colon [R93.3] 08/07/2023 Chronic constipation [K59.09] 08/07/2023 Interstitial pulmonary disease (HCC) [J84.9] 12/28/2023 Idiopathic pulmonary fibrosis (HCC) [J84.112] 01/17/2024 Obesity, Class I, BMI 30-34.9 [E66.811] 01/17/2024 Mild memory disturbances not amounting to demen*01/17/2024 Encounter Status:Closed by MARJORIE REDMAN on 08/16/24 [facility] 07-31-2024 [facility] Telephone (JANICEWADELROY) LESLI ROSALES ([id number]) 1940 F Date Time Provider Department 07/31/24 GISELLE ELIZONDO LIBRA During your visit today, we recorded the following information about you: Dania Jones 07/31/2024 10:48 AM Signed concepcion [place] Caller Name: Giovanna Call Back Number [phone] Reason for Call: 5 year renewal on oxygen machine Additional Information: Faxed on 07-30-24. Checking on receipt of faxed oder. Marjorie Redman LPN 07/31/2024 11:23 AM Signed Orders from [facility] Received and placed in providers box Maddie Costa LPN 08/08/2024 6:02 PM Signed Fax sent Allergies As of Date: 07/31/2024 (No Known Allergies) Date Reviewed: 07/10/2024 Reviewed by: Marjorie Redman LPN - Fully Assessed Reason for Visit: Orders [681] Prescriptions as of 08/08/2024 - diazePAM (VALIUM) 10 mg tablet Take one tablet one hour prior to MRI - hydroCHLOROthiazide 12.5 mg capsule TAKE 1 CAPSULE BY MOUTH ONCE DAILY - famotidine (PEPCID) 20 mg tablet TAKE 1 TABLET BY MOUTH ONCE DAILY - atenolol (TENORMIN) 25 mg tablet Take 1 tablet by mouth once daily. - rivaroxaban (XARELTO) 20 mg tablet Take 1 tablet by mouth daily with dinner. - tiotropium (SPIRIVA WITH HANDIHALER) 18 mcg inhalation capsule inhale THE CONTENTS OF ONE CAPSULE IN THE HANDIHALER every morning - budesonide-formoterol (SYMBICORT) 160-4.5 mcg/actuation inhaler Inhale 2 Puffs as instructed two times a day. - lidocaine (LIDODERM) 5 % - gabapentin (NEURONTIN) 100 mg capsule Take 100 mg by mouth three times a day. - hydrOXYzine HCl (ATARAX) 25 mg tablet Take 1 tablet by mouth three times a day as needed. - risankizumab-rzaa (SKYRIZI) 150 mg/mL injection Inject 150 mg subcutaneously every 3 months. - albuterol HFA (PROVENTIL HFA, VENTOLIN HFA) 90 mcg/actuation inhaler - baclofen (LIORESAL) 5 mg tablet Take 5 mg by mouth twice daily. - betamethasone valerate 0.1 % cream Apply to affected area once daily. 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] 07/05/2022 Cervical spondylosis [M47.812] 07/05/2022 Chronic obstructive pulmonary disease (HCC) [J4*07/05/2022 Chronic atrial fibrillation (HCC) [I48.20] 07/05/2022 HTN (hypertension), benign [I10] 07/05/2022 Psoriasis, unspecified [L40.9] 07/05/2022 Chronic midline low back pain without sciatica *07/05/2022 Psoriatic arthritis (HCC) [L40.50] 07/05/2022 Restrictive lung disease [J98.4] 06/16/2023 Lung nodules [R91.8] 06/16/2023 Preop examination [Z01.818] 08/07/2023 Paroxysmal atrial fibrillation (HCC) [I48.0] 08/07/[address] scan, colon [R93.3] 08/07/2023 Chronic constipation [K59.09] 08/07/2023 Interstitial pulmonary disease (HCC) [J84.9] 12/28/2023 Idiopathic pulmonary fibrosis (HCC) [J84.112] 01/17/2024 Obesity, Class I, BMI 30-34.9 [E66.811] 01/17/2024 Mild memory disturbances not amounting to demen*01/17/2024 Encounter Status:Closed by MADDIE COSTA on 08/08/24 [facility] Tang 07-22-2024 PRITI Telephone (FPWADS) LESLI ROSALES ([id number]) 1940 F Date Time Provider Department 07/22/24 GISELLE ELIZONDO During your visit today, we recorded the following information about you: Aurea Loya 07/22/2024 10:22 AM Signed Lesli is calling Giselle Elizondo MD today with concern regarding Results and Patient Question she would like to ask a nurse. She is asking if the US showed anything on the Pancreas. Please call to review. Patient has been identified by name and birthdate. Duration of symptoms: N/A Person calling: self Call patient at: at home [phone] (home) [phone] (cell) Was an appointment scheduled: No Closing statement: Results or non-symptom based questions: Thank you for calling [facility], your call will be returned within the next business day. 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 Looks like our staff tried to call her and were unable. Please assist in scheduling the MRI if not already done so. Ana Meza APRN.Fernanda Silverman RN 07/22/2024 2:35 PM Signed Spoke to patient who is aware of results, MRI scheduled 07/26 Allergies As of Date: 07/22/2024 (No Known Allergies) Date Reviewed: 07/10/2024 Reviewed by: Marjorie Redman LPN - Fully Assessed Reason for Visit: Results [95] Patient Question [8727] Cmt: Results and her Pancreas Prescriptions as of 07/22/2024 - diazePAM (VALIUM) 10 mg tablet Take one tablet one hour prior to MRI - hydroCHLOROthiazide 12.5 mg capsule TAKE 1 CAPSULE BY MOUTH ONCE DAILY - famotidine (PEPCID) 20 mg tablet TAKE 1 TABLET BY MOUTH ONCE DAILY - atenolol (TENORMIN) 25 mg tablet Take 1 tablet by mouth once daily. - rivaroxaban (XARELTO) 20 mg tablet Take 1 tablet by mouth daily with dinner. - tiotropium (SPIRIVA WITH HANDIHALER) 18 mcg inhalation capsule inhale THE CONTENTS OF ONE CAPSULE IN THE HANDIHALER every morning - budesonide-formoterol (SYMBICORT) 160-4.5 mcg/actuation inhaler Inhale 2 Puffs as instructed two times a day. - lidocaine (LIDODERM) 5 % - gabapentin (NEURONTIN) 100 mg capsule Take 100 mg by mouth three times a day. - hydrOXYzine HCl (ATARAX) 25 mg tablet Take 1 tablet by mouth three times a day as needed. - risankizumab-rzaa (SKYRIZI) 150 mg/mL injection Inject 150 mg subcutaneously every 3 months. - albuterol HFA (PROVENTIL HFA, VENTOLIN HFA) 90 mcg/actuation inhaler - baclofen (LIORESAL) 5 mg tablet Take 5 mg by mouth twice daily. - betamethasone valerate 0.1 % cream Apply to affected area once daily. Apply to arms Problem List As Of Date 07/22/2024 Noted Resolved History of right shoulder replacement [Z96.611] 07/05/2022 Cervical spondylosis [M47.812] 07/05/2022 Chronic obstructive pulmonary disease (HCC) [J4*07/05/2022 Chronic atrial fibrillation (HCC) [I48.20] 07/05/2022 HTN (hypertension), benign [I10] 07/05/2022 Psoriasis, unspecified [L40.9] 07/05/2022 Chronic midline low back pain without sciatica *07/05/2022 Psoriatic arthritis (HCC) [L40.50] 07/05/2022 Restrictive lung disease [J98.4] 06/16/2023 Lung nodules [R91.8] 06/16/2023 Preop examination [Z01.818] 08/07/2023 Paroxysmal atrial fibrillation (HCC) [I48.0] 08/07/[address] scan, colon [R93.3] 08/07/2023 Chronic constipation [K59.09] 08/07/2023 Interstitial pulmonary disease (HCC) [J84.9] 12/28/2023 Idiopathic pulmonary fibrosis (HCC) [J84.112] 01/17/2024 Obesity, Class I, BMI 30-34.9 [E66.811] 01/17/2024 Mild memory disturbances not amounting to demen*01/17/2024 Encounter Status:Closed by FERNANDA COLEMAN on 07/22/24 Normal [facility] 36on 07-15-2024 36 Pt hasn't been seen in a year. Looks like she has been going to [facility]. Called Pt to confirm and she was unavailable. [facility] for call back. Normal [facility] No Panel Informationon 07-11 IMPRESSION: 1. Cystic lesion in the body of the pancreas similar to the prior MRI 2. No biliary dilatation Head Tennis Professional: MALACHI Transcribe Date/Time: Jul 11 2024 10:37A Dictated by : ZULMA TORRES MD This examination was interpreted and the report reviewed and electronically signed by: ZULMA TORRES MD on Jul 11 2024 10:40AM [facility] DIVISION OF RADIOLOGY Radiology Study observation (narrative) [facility] No Panel InformationOrdered By: [facility] Provider on 07-11-2024 [facility] US ABD RIGHT UPPER QUADRANTo n 07-11-2024 US ABD RIGHT UPPER QUADRANT * * *Final Report* * * DATE OF EXAM: Jul 11 2024 10:19AM [facility] 1032 - US ABD RIGHT UPPER QUADRANT / PROCEDURE REASON: Epigastric pain * * * * Physician Interpretation * * * * EXAMINATION: RIGHT UPPER QUADRANT AND SPLEEN ULTRASOUND CLINICAL HISTORY: Epigastric pain TECHNIQUE: Sonography of the right upper quadrant and spleen was performed. Images were obtained and stored in a permanent archive. MQ: URUQ_2 COMPARISON: MRI abdomen 07/20/2023 RESULT: Evaluation is limited by motion artifact and bowel gas. Pancreas: No duct dilatation. 7 mm cystic lesion in the pancreatic body similar to the prior MRI. Portions obscured: tail Liver: Echotexture: Normal, homogeneous. Echogenicity: Normal Surface contour: Smooth Lesions: None. Biliary: No intrahepatic biliary duct dilation. CBD: 0.6 cm at the hilum. Gallbladder: Prior cholecystectomy Right Kidney: No hydronephrosis. Ascites: None. Spleen: The craniocaudal length of the spleen is 10.6 cm, normal. There are no splenic lesions. Left kidney: No hydronephrosis. IMPRESSION: 1. Cystic lesion in the body of the pancreas similar to the prior MRI 2. No biliary dilatation Head Tennis Professional: MALACHI Transcribe Date/Time: Jul 11 2024 10:37A Dictated by : ZULMA TORRES MD This examination was interpreted and the report reviewed and electronically signed by: ZULMA TORRES MD on Jul 11 2024 10:40AM EST [id number] Normal [facility] ABD SPLEEN - NBon 024 * * *Final Report* * * DATE OF EXAM: Jul 11 2024 10:19AM [facility] 1232 - US ABD SPLEEN -NB / PROCEDURE REASON: Epigastric pain * * * * Physician Interpretation * * * * EXAMINATION: RIGHT UPPER QUADRANT AND SPLEEN ULTRASOUND CLINICAL HISTORY: Epigastric pain TECHNIQUE: Sonography of the right upper quadrant and spleen was performed. Images were obtained and stored in a permanent archive. MQ: URUQ_2 COMPARISON: MRI abdomen 07/20/2023 RESULT: Evaluation is limited by motion artifact and bowel gas. Pancreas: No duct dilatation. 7 mm cystic lesion in the pancreatic body similar to the prior MRI. Portions obscured: tail Liver: Echotexture: Normal, homogeneous. Echogenicity: Normal Surface contour: Smooth Lesions: None. Biliary: No intrahepatic biliary duct dilation. CBD: 0.6 cm at the hilum. Gallbladder: Prior cholecystectomy Right Kidney: No hydronephrosis. Ascites: None. Spleen: The craniocaudal length of the spleen is 10.6 cm, normal. There are no splenic lesions. Left kidney: No hydronephrosis. DIVISION OF RADIOLOGY Provider, [facility] - 07/11/2024 * * *Final Report* * * DATE OF EXAM: Jul 11 2024 10:19AM [facility] 1232 - US ABD SPLEEN -NB / PROCEDURE REASON: Epigastric pain * * * * Physician Interpretation * * * * EXAMINATION: RIGHT UPPER QUADRANT AND SPLEEN ULTRASOUND CLINICAL HISTORY: Epigastric pain TECHNIQUE: Sonography of the right upper quadrant and spleen was performed. Images were obtained and stored in a permanent archive. MQ: URUQ_2 COMPARISON: MRI abdomen 07/20/2023 RESULT: Evaluation is limited by motion artifact and bowel gas. Pancreas: No duct dilatation. 7 mm cystic lesion in the pancreatic body similar to the prior MRI. Portions obscured: tail Liver: Echotexture: Normal, homogeneous. Echogenicity: Normal Surface contour: Smooth Lesions: None. Biliary: No intrahepatic biliary duct dilation. CBD: 0.6 cm at the hilum. Gallbladder: Prior cholecystectomy Right Kidney: No hydronephrosis. Ascites: None. Spleen: The craniocaudal length of the spleen is 10.6 cm, normal. There are no splenic lesions. Left kidney: No hydronephrosis. IMPRESSION IMPRESSION: 1. Cystic lesion in the body of the pancreas similar to the prior MRI 2. No biliary dilatation Head Tennis Professional: MALACHI Transcribe Date/Time: Jul 11 2024 10:37A Dictated by : ZULMA TORRES MD This examination was interpreted and the report reviewed and electronically signed by: ZULMA TORRES MD on Jul 11 2024 10:40AM [facility] US ABD SPLEEN -NBon 07-11-20 US ABD SPLEEN -NB * * *Final Report* * * DATE OF EXAM: Jul 11 2024 10:19AM [facility] 1232 - US ABD SPLEEN -NB / PROCEDURE REASON: Epigastric pain * * * * Physician Interpretation * * * * EXAMINATION: RIGHT UPPER QUADRANT AND SPLEEN ULTRASOUND CLINICAL HISTORY: Epigastric pain TECHNIQUE: Sonography of the right upper quadrant and spleen was performed. Images were obtained and stored in a permanent archive. MQ: URUQ_2 COMPARISON: MRI abdomen 07/20/2023 RESULT: Evaluation is limited by motion artifact and bowel gas. Pancreas: No duct dilatation. 7 mm cystic lesion in the pancreatic body similar to the prior MRI. Portions obscured: tail Liver: Echotexture: Normal, homogeneous. Echogenicity: Normal Surface contour: Smooth Lesions: None. Biliary: No intrahepatic biliary duct dilation. CBD: 0.6 cm at the hilum. Gallbladder: Prior cholecystectomy Right Kidney: No hydronephrosis. Ascites: None. Spleen: The craniocaudal length of the spleen is 10.6 cm, normal. There are no splenic lesions. Left kidney: No hydronephrosis. IMPRESSION: 1. Cystic lesion in the body of the pancreas similar to the prior MRI 2. No biliary dilatation Head Tennis Professional: PSCHeather Transcribe Date/Time: Jul 11 2024 10:37A Dictated by : ZULMA TORRES MD This examination was interpreted and the report reviewed and electronically signed by: ZULMA TORRES MD on Jul 11 2024 10:40AM EST [id number] Normal [facility] US Abdomen RUQon 07-11-2024 * * *Final Report* * * DATE OF EXAM: Jul 11 2024 10:19AM [facility] 1032 - US ABD RIGHT UPPER QUADRANT / PROCEDURE REASON: Epigastric pain * * * * Physician Interpretation * * * * EXAMINATION: RIGHT UPPER QUADRANT AND SPLEEN ULTRASOUND CLINICAL HISTORY: Epigastric pain TECHNIQUE: Sonography of the right upper quadrant and spleen was performed. Images were obtained and stored in a permanent archive. MQ: URUQ_2 COMPARISON: MRI abdomen 07/20/2023 RESULT: Evaluation is limited by motion artifact and bowel gas. Pancreas: No duct dilatation. 7 mm cystic lesion in the pancreatic body similar to the prior MRI. Portions obscured: tail Liver: Echotexture: Normal, homogeneous. Echogenicity: Normal Surface contour: Smooth Lesions: None. Biliary: No intrahepatic biliary duct dilation. CBD: 0.6 cm at the hilum. Gallbladder: Prior cholecystectomy Right Kidney: No hydronephrosis. Ascites: None. Spleen: The craniocaudal length of the spleen is 10.6 cm, normal. There are no splenic lesions. Left kidney: No hydronephrosis. DIVISION OF RADIOLOGY Provider, [facility] - 07/11/2024 * * *Final Report* * * DATE OF EXAM: Jul 11 2024 10:19AM [facility] 1032 - US ABD RIGHT UPPER QUADRANT / PROCEDURE REASON: Epigastric pain * * * * Physician Interpretation * * * * EXAMINATION: RIGHT UPPER QUADRANT AND SPLEEN ULTRASOUND CLINICAL HISTORY: Epigastric pain TECHNIQUE: Sonography of the right upper quadrant and spleen was performed. Images were obtained and stored in a permanent archive. MQ: URUQ_2 COMPARISON: MRI abdomen 07/20/2023 RESULT: Evaluation is limited by motion artifact and bowel gas. Pancreas: No duct dilatation. 7 mm cystic lesion in the pancreatic body similar to the prior MRI. Portions obscured: tail Liver: Echotexture: Normal, homogeneous. Echogenicity: Normal Surface contour: Smooth Lesions: None. Biliary: No intrahepatic biliary duct dilation. CBD: 0.6 cm at the hilum. Gallbladder: Prior cholecystectomy Right Kidney: No hydronephrosis. Ascites: None. Spleen: The craniocaudal length of the spleen is 10.6 cm, normal. There are no splenic lesions. Left kidney: No hydronephrosis. IMPRESSION IMPRESSION: 1. Cystic lesion in the body of the pancreas similar to the prior MRI 2. No biliary dilatation Head Tennis Professional: MALACHI Transcribe Date/Time: Jul 11 2024 10:37A Dictated by : ZULMA TORRES MD This examination was interpreted and the report reviewed and electronically signed by: ZULMA TORRES MD on Jul 11 2024 10:40AM EST [facility] CNOVon 07-10-2024 CNOV Office Visit (FPWADS ) LESLI ROSALES ([id number]) 1940 F Date Time Provider Department 07/10/24 10:00 AM ANA MEZA LIBRA During your visit today, we recorded the following information about you: Pulse Blood pressure Weight Height 69/minute 145/88 73 kg 1.54 m Ana Meza APRN.ACCOUNT MANAGER TRAINEE 07/10/2024 11:43 AM Signed This note was created using Trekeariter. Subjective Leslirupert Rosales is a 84 year old female. Patient reports new onset epigastric pain starting about 3 weeks ago, radiates straight through to back. Only occurs with eating. Pain lasts for about a half hour. Takes famotidine every day for GERD, 20 mg in the morning. Pain does not come up into throat. History of hiatal hernia. Feels hard and swollen in epigastric area. Doesn't feel bloated. Does have excess flatulence but no burping. Reports that she has a thoracic fracture of T8. Managed by Dr. Giselle Jerez--orthopedist romulo. Had back brace fitted, but didn't wear it today. May have surgery on her spine. Discussed recommendation to repeat pancreatic MRI 1 year from previous study, due now. Patient also has chest CT scheduled in August for follow-up of lung nodules. Has chronic constipation, will go several days without a bowel movement, then takes something to go. Was previously advised by GI to take Miralax daily but she has not done so. The history is provided by the patient. Review of Systems Constitutional: Negative for fever. HENT: Negative for trouble swallowing. Respiratory: Negative for shortness of breath. Cardiovascular: Negative for chest pain. Gastrointestinal: Positive for abdominal pain, constipation (chronic) and nausea. Negative for diarrhea and vomiting. PAST MEDICAL HISTORY Diagnosis Date A-fib (HCC) Chronic obstructive pulmonary disease (COPD) (HCC) Hypertension Lung nodules Psoriasis Psoriatic arthritis (HCC) PAST SURGICAL HISTORY Procedure Laterality Date APPENDECTOMY BACK SURGERY HX 1985 CHOLECYSTECTOMY HX COLONOSCOPY SCREENING EGD W/O BRSH SPEC VARICIES INJ REPAIR OF RECTOCELE REPAIR UMBILICAL HERNIA 2009 SHX TOTAL SHOULDER REVERSE Right SLING OPER STRES INCONTINENCE UMBILICAL HERNIA REPAIR 5 OR OLDER 1965 VAGINAL HYSTERECTOMY ALLERGIES Patient has no known allergies. MEDICATIONS hydroCHLOROthiazide 12.5 mg capsule TAKE 1 CAPSULE BY MOUTH ONCE DAILY famotidine (PEPCID) 20 mg tablet TAKE 1 TABLET BY MOUTH ONCE DAILY atenolol (TENORMIN) 25 mg tablet Take 1 tablet by mouth once daily. rivaroxaban (XARELTO) 20 mg tablet Take 1 tablet by mouth daily with dinner. tiotropium (SPIRIVA WITH HANDIHALER) 18 mcg inhalation capsule inhale THE CONTENTS OF ONE CAPSULE IN THE HANDIHALER every morning budesonide-formoterol (SYMBICORT) 160-4.5 mcg/actuation inhaler Inhale 2 Puffs as instructed two times a day. lidocaine (LIDODERM) 5 % gabapentin (NEURONTIN) 100 mg capsule Take 100 mg by mouth three times a day. hydrOXYzine HCl (ATARAX) 25 mg tablet Take 1 tablet by mouth three times a day as needed. risankizumab-rzaa (SKYRIZI) 150 mg/mL injection Inject 150 mg subcutaneously every 3 months. albuterol HFA (PROVENTIL HFA, VENTOLIN HFA) 90 mcg/actuation inhaler baclofen (LIORESAL) 5 mg tablet Take 5 mg by mouth twice daily. betamethasone valerate 0.1 % cream Apply to affected area once daily. Apply to arms iv contrast (will be provided with radiology test) MRI PANC/IRVING Inject, intravenously, once for 1 dose. No IV access, insert saline lock prior to the beginning of sedation, infusion, injection of imaging exam. Discontinue saline lock post exam. If Pt. has a central line or IVAD, may access for administration according to line specific nursing protocol. Once exam is complete flush line and de-access according to line specific nursing protocol in the MR contrast administration guidelines link. FAMILY HISTORY Adopted: Yes Social History Tobacco Use Smoking status: Former Current packs/day: 0.00 Average packs/day: 1 pack/day for 17.0 years (17.0 ttl pk-yrs) Types: Cigarettes Start date: 09/22/1958 Quit date: 09/22/1975 Years since quittin.8 Smokeless tobacco: Never Vaping Use Vaping status: Never Used Substance Use Topics Alcohol use: Not Currently Drug use: Never Objective BP 145/88 Pulse 69 Ht 154 cm (5' 0.63) Wt 73 kg (160 lb 15 oz) BMI 30.78 kg/m? Physical Exam Vitals and nursing note reviewed. Constitutional: Appearance: She is well-developed. She is not ill-appearing. Cardiovascular: Rate and Rhythm: Normal rate and regular rhythm. Heart sounds: Normal heart sounds. Pulmonary: Effort: Pulmonary effort is normal. Breath sounds: Normal breath sounds. Abdominal: General: Bowel sounds are normal. Palpations: Abdomen is soft. Tenderness: There is abdominal tenderness in the epigastric area. Comments: Unable to li (more content not included)... Normal [facility] Tang 07-10-2024 MARJN Telephone (FPWADS) LESLI ROSALES ([id number]) 1940 F Date Time Provider Department 07/10/24 ANA MEZA During your visit today, we recorded the following information about you: Chloe Noriega 07/10/2024 4:11 PM Signed Lesli was referred for an MRI today, and initially this was ordered with sedation. After reviewing all location options that are able to provide sedation, Lesli requested to forgo the sedation and be prescribed valium to manage her symptoms related to the MRI for the procedure. Provider team, if agreeable, could a revised order for her MRI be placed that does not advise for sedation? If agreeable, she requested an RX for valium [facility] file in [place]. Please advise, Ana Walker APRN.MARJ 07/10/2024 4:41 PM Signed MRI re-ordered, medication sent Ana Meza APRN.Marjorie Manzano LPN 07/11/2024 10:09 AM Signed Voicemail not set up Ester Morse 07/11/2024 2:14 PM Signed MRI order switched to new order. Allergies As of Date: 07/10/2024 (No Known Allergies) Date Reviewed: 07/10/2024 Reviewed by: Marjorie Redman LPN - Fully Assessed Reason for Visit: Patient Question [1477] Primary Visit Diagnosis:Pancreatic cyst [K86.2] Order(s):MRI PANC/IRVING WO/W IVCON [[id number]] Order #: [id number] FUTURE MRI 3D POST PROCESSING [[id number]] Order #: [id number] FUTURE diazePAM (VALIUM) 10 mg tabletTake one tablet one hour prior to MRIDisp: 1 tabletRfl: 0 Prescriptions as of 07/11/2024 - diazePAM (VALIUM) 10 mg tablet Take one tablet one hour prior to MRI - hydroCHLOROthiazide 12.5 mg capsule TAKE 1 CAPSULE BY MOUTH ONCE DAILY - famotidine (PEPCID) 20 mg tablet TAKE 1 TABLET BY MOUTH ONCE DAILY - atenolol (TENORMIN) 25 mg tablet Take 1 tablet by mouth once daily. - rivaroxaban (XARELTO) 20 mg tablet Take 1 tablet by mouth daily with dinner. - tiotropium (SPIRIVA WITH HANDIHALER) 18 mcg inhalation capsule inhale THE CONTENTS OF ONE CAPSULE IN THE HANDIHALER every morning - budesonide-formoterol (SYMBICORT) 160-4.5 mcg/actuation inhaler Inhale 2 Puffs as instructed two times a day. - lidocaine (LIDODERM) 5 % - gabapentin (NEURONTIN) 100 mg capsule Take 100 mg by mouth three times a day. - hydrOXYzine HCl (ATARAX) 25 mg tablet Take 1 tablet by mouth three times a day as needed. - risankizumab-rzaa (SKYRIZI) 150 mg/mL injection Inject 150 mg subcutaneously every 3 months. - albuterol HFA (PROVENTIL HFA, VENTOLIN HFA) 90 mcg/actuation inhaler - baclofen (LIORESAL) 5 mg tablet Take 5 mg by mouth twice daily. - betamethasone valerate 0.1 % cream Apply to affected area once daily. Apply to arms Problem List As Of Date 07/10/2024 Noted Resolved History of right shoulder replacement [Z96.611] 07/05/2022 Cervical spondylosis [M47.812] 07/05/2022 Chronic obstructive pulmonary disease (HCC) [J4*07/05/2022 Chronic atrial fibrillation (HCC) [I48.20] 07/05/2022 HTN (hypertension), benign [I10] 07/05/2022 Psoriasis, unspecified [L40.9] 07/05/2022 Chronic midline low back pain without sciatica *07/05/2022 Psoriatic arthritis (HCC) [L40.50] 07/05/2022 Restrictive lung disease [J98.4] 06/16/2023 Lung nodules [R91.8] 06/16/2023 Preop examination [Z01.818] 08/07/2023 Paroxysmal atrial fibrillation (HCC) [I48.0] 08/07/[address] scan, colon [R93.3] 08/07/2023 Chronic constipation [K59.09] 08/07/2023 Interstitial pulmonary disease (HCC) [J84.9] 12/28/2023 Idiopathic pulmonary fibrosis (HCC) [J84.112] 01/17/2024 Obesity, Class I, BMI 30-34.9 [E66.811] 01/17/2024 Mild memory disturbances not amounting to demen*01/17/2024 Prescriptions ordered this encounter Disp Refills Start End DIAZEPAM 10 MG TABLET 1 ta* 0 07/10/2024 08/09/2024 Sig: Take one tablet one hour prior to MRI Medications Discontinued During This Encounter Prescriptions - iv contrast (will be provided with radiology test) (Discontinued) MRI PANC/IRVING Inject, intravenously, once for 1 dose. No IV access, insert saline lock prior to the beginning of sedation, infusion, injection of imaging exam. Discontinue saline lock post exam. If Pt. has a central line or IVAD, may access for administration according to line specific nursing protocol. Once exam is complete flush line and de-access according to line specific nursing protocol in the MR contrast administration guidelines link. Encounter Status:Closed by CHLOE NORIEGA on 07/10/24 Normal [facility] ED Nursing Noteon 06-07-2024 ED Nursing Note Patient left prior t o receiving discharge papers Cesia Sheth RN 06/07/242002 Normal [facility] ED Nursing Note Pt medicated per ord ers. Advised pt that she will be discharged after registration/med hold time. Pt trying to call a ride. Yamila Sanchez RN 06/07/24 1903 Normal [facility] ED Nursing Note Pt to ED5 via [facility] with report of chronic back pain. Pt states she has had back pain since March. She has seen PCP and also sees pain management. She is on multiple pain meds including Prescott and Soma as well as gabapentin. She last took Prescott at 1630 but states it did nothing. She is rating her pain 10/10. Pt able to move all extremities. She reports hx of sciatica and states this feels similar. Pain is around left flank to spine. It went down her left leg yesterday but not today. Pt is A&Ox3, respirations even and unlabored, skin warm and dry, no distress noted. Normal [facility] ED Provider Noteon ED Provider Note EMERGENCY DEPARTMENT ENCOUNTER Pt Name: Lesli Rosales Birthdate 1940 Date of evaluation: 06/07/2024 ED Provider: Nieves Borja MD CHIEF COMPLAINT Chief Complaint Patient presents with Back Pain HISTORY OF PRESENT ILLNESS (Location/Symptom, Timing/Onset, Context/Setting, Quality, Duration, Modifying Factors, Severity) Note limiting factors. I wore appropriate PPE for the entirety of this encounter. HPI Lesli Rosales is a 84 y.o. who presents to the emergency department with chief complaint of left-sided thoracic back pain and left-sided rib cage pain. This is acute on chronic pain been ongoing for few months since she had fractured ribs on the left side. She follows with pain management. She is on Prescott, Soma, gabapentin. She was previously on Toradol. She denies any injury or fall. She denies any fevers chills cough shortness of breath chest pain. She has had prior back surgeries denies hardware in the spine. Denies bowel or bladder incontinence retention saddle anesthesia. She had some low back pain as well as some sciatic type nerve pain rating down the back of the left leg yesterday but that is gone away. Denies any new numbness or weakness in the legs. No abdominal pain. She is on Xarelto. She has no known active cancer unintentional weight loss or significant nighttime pain. Nursing Notes were reviewed. Limitations to history: None Outside historians: None REVIEW OF SYSTEMS Review of Systems Constitutional: Negative for chills and fever. HENT: Negative for ear pain and sore throat. Eyes: Negative for pain and visual disturbance. Respiratory: Negative for cough and shortness of breath. Cardiovascular: Negative for chest pain and palpitations. Gastrointestinal: Negative for abdominal pain and vomiting. Genitourinary: Negative for dysuria and hematuria. Musculoskeletal: Positive for arthralgias, back pain and myalgias. Skin: Negative for color change and rash. Neurological: Negative for seizures and syncope. All other systems reviewed and are negative. Pertinent positives and negatives as per HPI. PAST MEDICAL HISTORY Past Medical History: Diagnosis Date Arthritis Atrial fibrillation (HCC) Chronic obstructive pulmonary disease (HCC) 08/24/2017 Chronic pain GERD (gastroesophageal reflux disease) Hypertension Osteoarthritis Pain management Psoriasis SURGICAL HISTORY Past Surgical History: Procedure Laterality Date ABDOMINAL SURGERY bladder bowel all dropped APPENDECTOMY BACK SURGERY BLADDER SUSPENSION BRONCHOSCOPY (HISTORICAL) 06/28/2017 Bronch ENB CHOLECYSTECTOMY COLONOSCOPY FINGER SURGERY HERNIA REPAIR 1959's umbilical SHOULDER SURGERY Right SPINE SURGERY 1985 TOTAL ABDOMINAL HYSTERECTOMY UPPER GASTROINTESTINAL ENDOSCOPY CURRENT MEDICATIONS Previous Medications ALBUTEROL 108 (90 BASE) MCG/ACT INHALER USE 2 INHALATIONS BY MOUTH 4 TIMES DAILY IF NEEDED APREMILAST (OTEZLA) 30 MG TABLET Take by mouth. Do not crush, chew, or split tablets. ATENOLOL (TENORMIN) 25 MG TABLET BUDESONIDE-FORMOTEROL (SYMBICORT) 160-4.5 MCG/ACT INHALER Inhale 2 puffs in the morning and 2 puffs in the evening. Rinse mouth with water after use to reduce aftertaste and incidence of candidiasis. Do not swallow.. BUDESONIDE-FORMOTEROL (SYMBICORT) 80-4.5 MCG/ACT INHALER Inhale 2 puffs 2 times daily. CARISOPRODOL (SOMA) 350 MG TABLET Take 350 mg by mouth Nightly as needed. FAMOTIDINE (PEPCID) 20 MG TABLET Take 20 mg by mouth in the morning. GABAPENTIN (NEURONTIN) 100 MG CAPSULE Take 100 mg by mouth in the morning and 100 mg at noon and 100 mg in the evening. HYDROCHLOROTHIAZIDE (MICROZIDE) 12.5 MG CAPSULE HYDROCODONE-ACETAMINOPHEN (NORCO) 5-325 MG TABLET every 6 hours. IPRATROPIUM (ATROVENT) 0.02 % NEBULIZER SOLUTION Take 2.5 mL (0.5 mg) by nebulization every 6 hours as needed for wheezing or shortness of breath. LEVALBUTEROL (XOPENEX) 0.63 MG/3ML NEBULIZER SOLUTION Take 1 ampule by nebulization as needed for wheezing or shortness of breath. TIOTROPIUM (SPIRIVA) [address] 1 capsule (18 mcg) into inhaler and inhale in the morning. ALLERGIES Patient has no known allergies. FAMILY HISTORY Family History Adopted: Yes Problem Relation Name Age of Onset Other (31634) Mother SOCIAL HISTORY Social History Socioeconomic History Marital status: Tobacco Use Smoking status: Former Current packs/day: 0.00 Average packs/day: 1 pack/day for 17.0 years (17.0 ttl pk-yrs) Types: Cigarettes Start date: 05/29/1959 Quit date: 05/29/1976 Years since quittin.0 Smokeless tobacco: Never Vaping Use Vaping status: Never Used Substance and Sexual Activity Alcohol use: No Drug use: No SCREENINGS PHYSICAL EXAM ED Triage Vitals [06/07/24 1820] Temp Heart Rate Resp BP 36.4 ?C (97.5 ?F) 83 18 (!) 150/88 SpO2 Temp Source Heart Rate Source Patient Position (more content not included)... Normal [facility] CNOVon 05-29-2024 CNOV Office Visit (FPWADS ) LESLI ROSALES ([id number]) 1940 F Date Time Provider Department 05/29/24 11:00 AM GISELLE ELIZONDO FPLIBRA During your visit today, we recorded the following information about you: Pulse Blood pressure Weight Height 62/minute 157/85 75 kg 1.54 m Giselle Elizondo MD 05/29/2024 2:06 PM Signed CHIEF COMPLAINT Patient presents with: rib pain HISTORY OF PRESENT ILLNESS Lesli Rosales is a 84 year old female who presents here today for rib pain. I last saw this patient on 01/17/2024. Rib Pain - In March she was seen by pain management, was told that she had to lay on her stomach for injection into her shoulder - While turning to lay on stomach, she felt a sharp pain in her chest/rib L side - States that she called the answering service a few days later because the pain persisted. Imaging orders were placed - Imaging showed rib fractures - Had a thoracic spine nerve block on 05/16 without benefit - Went to the ER on 05/20, left without being seen. - Continues to endorses persistent pain the lower ribs and left sided back pain - Has difficulty breathing and trying to get out of bed Health Maintenance Due for Influenza Vaccine (1) Due for Covid-19 Vaccine ( season) Due for Pneumococcal Vaccine: 65+ (1 of 2- PCV) Due for DTaP, Tdap, Td Vaccine (1- Tdap) Due for Shingrix Vaccine (1 of 2) Due for RSV Vaccine (1-1 dose 75+ series) Due for Advance Directive Discussion Labs reviewed. Past medical history, appointments, medications, allergies reviewed. REVIEW OF SYSTEMS General: Feels well, no weight changes, fevers or chills. HEENT: No sinus congestion, earache, sore throat. Cardiac: No chest pain, palpitations Resp: No cough, wheeze, shortness of breath GI: No reflux symptoms, food intolerance, bowel changes. : No urinary frequency, dysuria. MS: +Rib pain, lower left side +left sided thoracic back pain PAST MEDICAL HISTORY PAST MEDICAL HISTORY Diagnosis Date A-fib (HCC) Chronic obstructive pulmonary disease (COPD) (HCC) Hypertension Lung nodules Psoriasis Psoriatic arthritis (HCC) PHYSICAL EXAMINATION BP 157/85 Pulse 62 Ht 154 cm (5' 0.63) Wt 75 kg (165 lb 5.5 oz) SpO2 93% BMI 31.62 kg/m? General: Alert, well developed, well nourished, no distress, pleasant and cooperative. Obese. Heart: Regular rate and rhythm. Normal S1 and S2. No murmurs, rubs, or gallops. Lungs: Clear to auscultation bilaterally. No respiratory distress. No wheezes, rales, or rhonchi. Pain on palpation of lower ribs, L side, posterolateral aspect of lower thorax, she has some pain on aplpaiton of upper chest wall, not as sharp , no crepitance. No bruising or rash. Abdomen: Soft, non-tender, no distention. Extremities: Feet/ankles without edema, posterior tibial pulses full and symmetrical. 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 Normal mediastinum and jan. Normal visualized pulmonary arteries. There is mild atherosclerotic calcification of the aortic arch. Normal visualized thoracic spine. Normal visualized clavicles and shoulders. There is no demonstrated abnormality of the visualized soft tissue structures of the upper abdomen. Assessment/Plan (S22.42XS) Closed fracture of multiple ribs of left side, sequela (primary encounter diagnosis) (M54.6, G89.29) Chronic left-sided thoracic back pain Comment: couple months pain, worsening some time after presumed injury Given location of pain, concerns for compression fracture, will check xray to confirm. Will obtain repeat xray of ribs Plan: XR THORACIC GENERAL 3V AP/LAT/SWIMMERS, XR RIBS 2V AP/OBL LEFT Requested Prescriptions No prescriptions requested or ordered in this encounter RTO: pending results of repeat xray. She will be seeing pain mgt today Scribe Attestation: By signing my name below, I, Evan Wellington, attest that this documentation has been prepared under the direction and in the presence of Harpreet Elizondo M.D. Electronically Signed: Carlos Austin. May 29, 2024 10:55 AM Provider Attestation: I, Giselle Elizondo MD, personally performed the services described in this documentation. All medical record entries made by the scribe were at my direction and in my telephonic presence. I have reviewed the chart and discharge instructions (if applicable), and agree that the record reflects my personal performance and is accurate and complete. Electronically Signed: Giselle Elizondo MD May 29, 2024 1:57 (more content not included)... Normal [facility] XR RIBS 2V AP/OBL LTon 05-29 XR RIBS 2V AP/OBL LT * * *Final Report* * * DATE OF EXAM: May 29 2024 4:43PM LDX 5582 - XR RIBS 2V AP/OBL LT / PROCEDURE REASON: multiple diagnoses * * * * Physician Interpretation * * * * TECHNIQUE: XR RIBS 2V AP/OBL LT, 2 views EXAM DATE: 05/29/2024 4:43 PM CLINICAL HISTORY: 84 years Female with Closed fracture of multiple ribs of left side, chronic left-sided thoracic back pain. COMPARISON: CT chest 01/19/2024. RESULT: Diffuse osseous demineralization, limiting examination. Age indeterminant minimally displaced left fifth and sixth rib fractures. Diffuse bilateral interstitial prominence. Left basilar atelectasis. No pneumothorax. No other osseous abnormality noted. IMPRESSION: Age-indeterminate minimally displaced left fifth and sixth rib fractures. No pneumothorax. Diffuse bilateral interstitial prominence, possibly in part due to technique. Head Tennis Professional: MALACHI Transcribe Date/Time: Jun 03 2024 3:19P Dictated by : SVETA SOOD, DO This examination was interpreted and the report reviewed and electronically signed by: SVETA SOOD DO on Jun 03 2024 3:28PM EST [id number] [facility] XR THORACIC 3V AP/LAT/SWIMME RSon 05-29-2024 XR THORACIC 3V AP/LAT/SWIMMERS * * *Final Report* * * DATE OF EXAM: May 29 2024 4:43PM LDX [id number] - XR THORACIC 3V AP/LAT/SWIMMERS / PROCEDURE REASON: multiple diagnoses * * * * Physician Interpretation * * * * EXAMINATION: XR THORACIC 3V AP/LAT/SWIMMERS CLINICAL HISTORY: Back pain. TECHNIQUE: XR THORACIC 3V AP/LAT/SWIMMERS with 3 views on 3 images MQ: [id number] COMPARISON: CT chest 12/30/2023. RESULT: Post-op assessment: N/A Alignment: Unchanged dextroscoliosis. Vertebral bodies: Diffuse osseous demineralization limits examination. Normal in height. No definite vertebral fracture. Spine articulations: Multilevel degenerative changes with disc space narrowing and endplate osteophyte formation. Soft tissues/other: Redemonstrated calcified right pulmonary nodule. Partially imaged right shoulder arthroplasty. Calcified abdominal aortic atherosclerosis. See also dedicated report for concurrent left rib radiographs. IMPRESSION: No definite thoracic spine fracture. Head Tennis Professional: MALACHI Transcribe Date/Time: Jun 03 2024 3:29P Dictated by : SVETA SOOD DO This examination was interpreted and the report reviewed and electronically signed by: SVETA SOOD DO on Jun 03 2024 3:33PM EST [id number] [facility] ([id number]) 1940 F Date Time Provider Department 05/08/24 KONTAK, GISELLE R FAMPST During your visit today, we recorded the following information about you: Janneth Deras 05/08/2024 9:31 AM Signed Lesli is calling Giselle Elizondo MD today to advise per [facility] [place] the medication Tiotropium ( Spiriva with handihaler) 18 mcg inhalation capsule Will need a prior authorization Patient is noting she has only 5 capsules left Please advise when PA has been completed Patient has been identified by name and birthdate. Duration of symptoms: N/A Person calling: self Call patient at: cell phone please [phone] (cell) Was an appointment scheduled: No Closing statement: Prior Authorization Calls: Thank you for calling [facility], your call will be returned within the next 24 hours or next business day. Janneth CarrMaddie Silvestre LPN 05/08/2024 10:52 AM Signed PA submitted through [employer]ction [employer]. Response pending Maddie Costa LPN 05/08/2024 2:33 PM Signed Response via covermymeds: LESLI ROSALES ([place]: [id number]) [place] Rx #: [id number] Need Help? Call us at Outcome N/A today by [employer] 2017 [place] This medication or product is on your plan's list of covered drugs. Prior authorization is not required at this time. If your pharmacy has questions regarding the processing of your prescription, please have them call the [employer] pharmacy help desk at . Called pt insurance, confirmed medication does not need a PA. Medication just needs sent in to [facility] [place] as pt previous pharmacy closed. Called and notified pt. Medication just needs sent to updated pharmacy. Pended. Please advise. Maddie Costa LPN 05/08/2024 2:34 PM Signed Addended by: MADDIE COSTA on: 05/08/2024 02:34 PM Modules accepted: Orders Ana Mace APRN.ACCOUNT MANAGER TRAINEE 05/08/2024 2:50 PM Signed Addended by: ANA MACE on: 05/08/2024 02:50 PM Modules accepted: Orders Allergies As of Date: 05/08/2024 (No Known Allergies) Date Reviewed: 04/29/2024 Reviewed by: Keely Givens MD - Fully Assessed Reason for Visit: Insurance Authorization [[id number]] Order(s):tiotropium (SPIRIVA WITH HANDIHALER) 18 mcg inhalation capsuleinhale THE CONTENTS OF ONE CAPSULE IN THE HANDIHALER every morningDisp: 30 capsuleRfl: 5 Prescriptions as of 05/08/2024 - tiotropium (SPIRIVA WITH HANDIHALER) 18 mcg inhalation capsule inhale THE CONTENTS OF ONE CAPSULE IN THE HANDIHALER every morning - budesonide-formoterol (SYMBICORT) 160-4.5 mcg/actuation inhaler Inhale 2 Puffs as instructed two times a day. - lidocaine (LIDODERM) 5 % - gabapentin (NEURONTIN) 100 mg capsule Take 100 mg by mouth three times a day. - famotidine (PEPCID) 20 mg tablet TAKE 1 TABLET BY MOUTH ONCE DAILY - hydroCHLOROthiazide 12.5 mg capsule TAKE 1 CAPSULE BY MOUTH ONCE DAILY - hydrOXYzine HCl (ATARAX) 25 mg tablet Take 1 tablet by mouth three times a day as needed. - risankizumab-rzaa (SKYRIZI) 150 mg/mL injection Inject 150 mg subcutaneously every 3 months. - rivaroxaban (XARELTO) 20 mg tablet Take 1 tablet by mouth daily with dinner. - atenolol (TENORMIN) 25 mg tablet Take 1 tablet by mouth once daily. - albuterol HFA (PROVENTIL HFA, VENTOLIN HFA) 90 mcg/actuation inhaler - baclofen (LIORESAL) 5 mg tablet Take 5 mg by mouth twice daily. - betamethasone valerate 0.1 % cream Apply to affected area once daily. Apply to arms - traMADol (ULTRAM) 50 mg tablet Take 50 mg by mouth twice daily. Problem List As Of Date 05/08/2024 Noted Resolved History of right shoulder replacement [Z96.611] 07/05/2022 Cervical spondylosis [M47.812] 07/05/2022 Chronic obstructive pulmonary disease (HCC) [J4*07/05/2022 Chronic atrial fibrillation (HCC) [I48.20] 07/05/2022 HTN (hypertension), benign [I10] 07/05/2022 Psoriasis, unspecified [L40.9] 07/05/2022 Chronic midline low back pain without sciatica *07/05/2022 Psoriatic arthritis (HCC) [L40.50] 07/05/2022 Restrictive lung disease [J98.4] 06/16/2023 Lung nodules [R91.8] 06/16/2023 Preop examination [Z01.818] 08/07/2023 Paroxysmal atrial fibrillation (HCC) [I48.0] 08/07/[address] scan, colon [R93.3] 08/07/2023 Chronic constipation [K59.09] 08/07/2023 Interstitial pulmonary disease (HCC) [J84.9] 12/28/2023 Idiopathic pulmonary fibrosis (HCC) [J84.112] 01/17/2024 Obesity, Class I, BMI 30-34.9 [E66.9] 01/17/2024 Mild memory disturbances not amounting to demen*01/17/2024 Prescriptions ordered this encounter Disp Refills Start End TIOTROPIUM BROMIDE 18 MCG CAPSULE WI* 30 c* 5 05/08/2024 Sig: inhale THE CONTENTS OF ONE CAPSULE IN THE HANDIHALER every morning Medications Discontinued During This Encounter Prescriptions - tiotropium (SPIRIVA WITH HANDIHALER) 18 mcg inha (more content not included)... Normal [facility] CNOVon 04-29-2024 CNOV Office Visit (PULMWS ) LESLI ROSALES ([id number]) 1940 F Date Time Provider Department 04/29/24 11:00 AM KEELY GIVENS PULMWS During your visit today, we recorded the following information about you: Pulse Blood pressure Weight Height 57/minute 138/90 75.2 kg 1.54 m Keely Givens MD 04/29/2024 12:08 PM [facility] [place] Note Patient name: Lesli Rosales PCP: Giselle Elizondo MD Referring Physician: CC: Follow-up CT and COPD HPI: Lesli Rosales 84 year old female former 25-nuxf-ifky smoker quitting in 1975 with PMH significant for obesity, paroxysmal atrial fibrillation, COPD, HTN, psoriatic arthritis, pulmonary nodules, chronic hypoxemic respiratory failure who recently presented for evaluation of possible pulmonary fibrosis. Patient was transferring her care from [facility]. She is a very poor historian and I had no records available for review. For inhaled therapy, she was on Spiriva HandiHaler and Symbicort. Multiple requests from [facility] for imaging had been unsuccessful. She had a recent abdominal CT with review of lower lung cuts not confirming significant fibrotic lung disease. Pulmonary function test showed combined restriction and obstruction with normal diffusing capacity. I ordered an updated chest CT that showed scattered calcified pulmonary nodules and lower lobe mild bronchiectasis with some reticular markings, and a new area of groundglass infiltrate in right lung adjacent to her large calcified nodule requiring follow-up. She is scheduled for repeat CT in July. Pulmonary standpoint she states she has been doing fairly well. She has no significant change in her dyspnea on exertion, no cough or sputum production, no wheezing. No recent upper respiratory infection. She does have some right sided splinting due to pulled muscles on her right chest. DATA: Imaging / Diagnostic Studies: DATE OF EXAM: Jan 19 2024 10:56AM [facility] 0541 - CT CHEST WO IVCON / IMPRESSION: New area of groundglass adjacent to stable calcified pulmonary nodules in the right upper lobe, possibly infectious/inflammatory. Follow-up CT could be considered to assess for resolution. Additional stable calcified granulomas and noncalcified pulmonary nodules, as described. Bronchiectasis in the lower lobes with underlying subpleural reticular changes, likely sequela of underlying interstitial lung disease. I personally reviewed the images as well as with the patient which shows scattered calcified nodules largest in her right upper lobe, some minimal bronchiectasis increased reticulations. Groundglass opacity adjacent to the largest calcified nodule right upper lobe. PAST MEDICAL HISTORY No date: A-fib (HCC) No date: Chronic obstructive pulmonary disease (COPD) ([facility]) No date: Hypertension No date: Lung nodules No date: Psoriasis No date: Psoriatic arthritis (HCC) ALLERGIES No Known Allergies carisoprodol (SOMA) 350 mg tablet Take 1 tablet by mouth at bedtime as needed for up to 30 days. tiotropium (SPIRIVA WITH HANDIHALER) 18 mcg inhalation capsule inhale THE CONTENTS OF ONE CAPSULE IN THE HANDIHALER every morning lidocaine (LIDODERM) 5 % gabapentin (NEURONTIN) 100 mg capsule Take 100 mg by mouth three times a day. famotidine (PEPCID) 20 mg tablet TAKE 1 TABLET BY MOUTH ONCE DAILY hydrOXYzine HCl (ATARAX) 25 mg tablet Take 1 tablet by mouth three times a day as needed. risankizumab-rzaa (SKYRIZI) 150 mg/mL injection Inject 150 mg subcutaneously every 3 months. rivaroxaban (XARELTO) 20 mg tablet Take 1 tablet by mouth daily with dinner. atenolol (TENORMIN) 25 mg tablet Take 1 tablet by mouth once daily. albuterol HFA (PROVENTIL HFA, VENTOLIN HFA) 90 mcg/actuation inhaler baclofen (LIORESAL) 5 mg tablet Take 5 mg by mouth twice daily. traMADol (ULTRAM) 50 mg tablet Take 50 mg by mouth twice daily. budesonide-formoterol (SYMBICORT) 160-4.5 mcg/actuation inhaler Inhale 2 Puffs as instructed two times a day. hydroCHLOROthiazide 12.5 mg capsule TAKE 1 CAPSULE BY MOUTH ONCE DAILY betamethasone valerate 0.1 % cream Apply to affected area once daily. Apply to arms (Patient not taking: Reported on 01/17/2024) Social History Tobacco Use Smoking status: Former Current packs/day: 0.00 Average packs/day: 1 pack/day for 17.0 years (17.0 ttl pk-yrs) Types: Cigarettes Start date: 09/22/1958 Quit date: 09/22/1975 Years since quittin.6 Smokeless tobacco: Never Vaping Use Vaping status: Never Used Substance Use Topics Alcohol use: Not Currently Drug use: Never FAMILY HISTORY Adopted: Yes PMH, Social history, family history and surgical history reviewed and updated in EMR REVIEW OF SYSTEMS: CONSTITUTIONAL: No fevers, chills, nightsweats, unintended weight loss HEENT: Denies nasal congestion/sinus symptoms (more content not included)... Normal [facility] Tang 04-09-2024 CNPN Telephone ([facility]) LESLI ROSALES ([id number]) 1940 F Date Time Provider Department 04/09/24 GISELLE ELIZONDO LIBRA During your visit today, we recorded the following information about you: Maddie Costa LPN 04/09/2024 11:52 AM Signed Received rib xray from [facility]. Placed in provider's inbox for review. Route to MA scanning Allergies As of Date: 04/09/2024 (No Known Allergies) Date Reviewed: 01/17/2024 Reviewed by: Maddie Costa LPN - Fully Assessed Reason for Visit: Received Outside Medical Records [[id number]] Cmt: [facility] xray 04/08/24 Prescriptions as of 04/09/2024 - carisoprodol (SOMA) 350 mg tablet Take 1 tablet by mouth at bedtime as needed for up to 30 days. - budesonide-formoterol (SYMBICORT) 160-4.5 mcg/actuation inhaler Inhale 2 Puffs as instructed two times a day. - tiotropium (SPIRIVA WITH HANDIHALER) 18 mcg inhalation capsule inhale THE CONTENTS OF ONE CAPSULE IN THE HANDIHALER every morning - lidocaine (LIDODERM) 5 % - gabapentin (NEURONTIN) 100 mg capsule Take 100 mg by mouth three times a day. - famotidine (PEPCID) 20 mg tablet TAKE 1 TABLET BY MOUTH ONCE DAILY - hydroCHLOROthiazide 12.5 mg capsule TAKE 1 CAPSULE BY MOUTH ONCE DAILY - hydrOXYzine HCl (ATARAX) 25 mg tablet Take 1 tablet by mouth three times a day as needed. - risankizumab-rzaa (SKYRIZI) 150 mg/mL injection Inject 150 mg subcutaneously every 3 months. - rivaroxaban (XARELTO) 20 mg tablet Take 1 tablet by mouth daily with dinner. - atenolol (TENORMIN) 25 mg tablet Take 1 tablet by mouth once daily. - albuterol HFA (PROVENTIL HFA, VENTOLIN HFA) 90 mcg/actuation inhaler - baclofen (LIORESAL) 5 mg tablet Take 5 mg by mouth twice daily. - betamethasone valerate 0.1 % cream Apply to affected area once daily. Apply to arms - traMADol (ULTRAM) 50 mg tablet Take 50 mg by mouth twice daily. Problem List As Of Date 04/09/2024 Noted Resolved History of right shoulder replacement [Z96.611] 07/05/2022 Cervical spondylosis [M47.812] 07/05/2022 Chronic obstructive pulmonary disease (HCC) [J4*07/05/2022 Chronic atrial fibrillation (HCC) [I48.20] 07/05/2022 HTN (hypertension), benign [I10] 07/05/2022 Psoriasis, unspecified [L40.9] 07/05/2022 Chronic midline low back pain without sciatica *07/05/2022 Psoriatic arthritis (HCC) [L40.50] 07/05/2022 Restrictive lung disease [J98.4] 06/16/2023 Lung nodules [R91.8] 06/16/2023 Preop examination [Z01.818] 08/07/2023 Paroxysmal atrial fibrillation (HCC) [I48.0] 08/07/[address] scan, colon [R93.3] 08/07/2023 Chronic constipation [K59.09] 08/07/2023 Interstitial pulmonary disease (HCC) [J84.9] 12/28/2023 Idiopathic pulmonary fibrosis (HCC) [J84.112] 01/17/2024 Obesity, Class I, BMI 30-34.9 [E66.9] 01/17/2024 Mild memory disturbances not amounting to demen*01/17/2024 Encounter Status:Closed by MADDIE COSTA on 04/09/24 [facility]-08[facility]20[facility]s Uni [facility] (FPWADS) LESLI ROSALES ([id number]) 1940 F Date Time Provider Department 02/19/24 GISELLE ELIZONDO During your visit today, we recorded the following information about you: Maddie Costa LPN 02/19/2024 4:02 PM Signed Received visit summary from [facility]. Placed in provider's inbox for review. Route to MA scanning Allergies As of Date: 02/19/2024 (No Known Allergies) Date Reviewed: 01/17/2024 Reviewed by: Maddie Costa LPN - Fully Assessed Reason for Visit: Received Outside Medical Records [2411] Cmt: Martha 01/29/24 Prescriptions as of 02/19/2024 - lidocaine (LIDODERM) 5 % - gabapentin (NEURONTIN) 100 mg capsule Take 100 mg by mouth three times a day. - famotidine (PEPCID) 20 mg tablet TAKE 1 TABLET BY MOUTH ONCE DAILY - hydroCHLOROthiazide 12.5 mg capsule TAKE 1 CAPSULE BY MOUTH ONCE DAILY - hydrOXYzine HCl (ATARAX) 25 mg tablet Take 1 tablet by mouth three times a day as needed. - tiotropium (SPIRIVA WITH HANDIHALER) 18 mcg inhalation capsule inhale THE CONTENTS OF ONE CAPSULE IN THE HANDIHALER every morning - risankizumab-rzaa (SKYRIZI) 150 mg/mL injection Inject 150 mg subcutaneously every 3 months. - budesonide-formoterol (SYMBICORT) 160-4.5 mcg/actuation inhaler Inhale 2 Puffs as instructed two times a day. - rivaroxaban (XARELTO) 20 mg tablet Take 1 tablet by mouth daily with dinner. - atenolol (TENORMIN) 25 mg tablet Take 1 tablet by mouth once daily. - albuterol HFA (PROVENTIL HFA, VENTOLIN HFA) 90 mcg/actuation inhaler - baclofen (LIORESAL) 5 mg tablet Take 5 mg by mouth twice daily. - betamethasone valerate 0.1 % cream Apply to affected area once daily. Apply to arms - traMADol (ULTRAM) 50 mg tablet Take 50 mg by mouth twice daily. Problem List As Of Date 02/19/2024 Noted Resolved History of right shoulder replacement [Z96.611] 07/05/2022 Cervical spondylosis [M47.812] 07/05/2022 Chronic obstructive pulmonary disease (HCC) [J4*07/05/2022 Chronic atrial fibrillation (HCC) [I48.20] 07/05/2022 HTN (hypertension), benign [I10] 07/05/2022 Psoriasis, unspecified [L40.9] 07/05/2022 Chronic midline low back pain without sciatica *07/05/2022 Psoriatic arthritis (HCC) [L40.50] 07/05/2022 Restrictive lung disease [J98.4] 06/16/2023 Lung nodules [R91.8] 06/16/2023 Preop examination [Z01.818] 08/07/2023 Paroxysmal atrial fibrillation (HCC) [I48.0] 08/07/[address] scan, colon [R93.3] 08/07/2023 Chronic constipation [K59.09] 08/07/2023 Interstitial pulmonary disease (HCC) [J84.9] 12/28/2023 Idiopathic pulmonary fibrosis (HCC) [J84.112] 01/17/2024 Obesity, Class I, BMI 30-34.9 [E66.9] 01/17/2024 Mild memory disturbances not amounting to demen*01/17/2024 Encounter Status:[facility] by [facility]ADD[facility] (FPWADELROY) LESLI ROSALES ([id number]) 1940 F Date Time Provider Department 02/13/24 GISELLE ELIZONDO During your visit today, we recorded the following information about you: Maddie Costa LPN 02/13/2024 9:57 AM Signed Received carotid duplex us from [facility]. Placed in provider's inbox for review. Route to MA scanning Allergies As of Date: 02/13/2024 (No Known Allergies) Date Reviewed: 01/17/2024 Reviewed by: Maddie Costa LPN - Fully Assessed Reason for Visit: Received Outside Medical Records [3576] Cmt: Carotid US [facility] Prescriptions as of 02/13/2024 - lidocaine (LIDODERM) 5 % - gabapentin (NEURONTIN) 100 mg capsule Take 100 mg by mouth three times a day. - famotidine (PEPCID) 20 mg tablet TAKE 1 TABLET BY MOUTH ONCE DAILY - hydroCHLOROthiazide 12.5 mg capsule TAKE 1 CAPSULE BY MOUTH ONCE DAILY - hydrOXYzine HCl (ATARAX) 25 mg tablet Take 1 tablet by mouth three times a day as needed. - tiotropium (SPIRIVA WITH HANDIHALER) 18 mcg inhalation capsule inhale THE CONTENTS OF ONE CAPSULE IN THE HANDIHALER every morning - risankizumab-rzaa (SKYRIZI) 150 mg/mL injection Inject 150 mg subcutaneously every 3 months. - budesonide-formoterol (SYMBICORT) 160-4.5 mcg/actuation inhaler Inhale 2 Puffs as instructed two times a day. - rivaroxaban (XARELTO) 20 mg tablet Take 1 tablet by mouth daily with dinner. - atenolol (TENORMIN) 25 mg tablet Take 1 tablet by mouth once daily. - albuterol HFA (PROVENTIL HFA, VENTOLIN HFA) 90 mcg/actuation inhaler - baclofen (LIORESAL) 5 mg tablet Take 5 mg by mouth twice daily. - betamethasone valerate 0.1 % cream Apply to affected area once daily. Apply to arms - traMADol (ULTRAM) 50 mg tablet Take 50 mg by mouth twice daily. Problem List As Of Date 02/13/2024 Noted Resolved History of right shoulder replacement [Z96.611] 07/05/2022 Cervical spondylosis [M47.812] 07/05/2022 Chronic obstructive pulmonary disease (HCC) [J4*07/05/2022 Chronic atrial fibrillation (HCC) [I48.20] 07/05/2022 HTN (hypertension), benign [I10] 07/05/2022 Psoriasis, unspecified [L40.9] 07/05/2022 Chronic midline low back pain without sciatica *07/05/2022 Psoriatic arthritis (HCC) [L40.50] 07/05/2022 Restrictive lung disease [J98.4] 06/16/2023 Lung nodules [R91.8] 06/16/2023 Preop examination [Z01.818] 08/07/2023 Paroxysmal atrial fibrillation (HCC) [I48.0] 08/07/[address] scan, colon [R93.3] 08/07/2023 Chronic constipation [K59.09] 08/07/2023 Interstitial pulmonary disease (HCC) [J84.9] 12/28/2023 Idiopathic pulmonary fibrosis (HCC) [J84.112] 01/17/2024 Obesity, Class I, BMI 30-34.9 [E66.9] 01/17/2024 Mild memory disturbances not amounting to demen*01/17/2024 Encounter Status:Closed by MADDIE COSTA on 02/13/24 Normal [facility] Carotid Duplex Ultrasoundon 02-12-2024 Carotid Duplex Ultrasound Normal [facility] 01-30-2024 [facility] Telephone (PULMWS) LESLI ROSALES ([id number]) 1940 F Date Time Provider Department 01/30/24 KEELY GIVENS PULCELESTE During your visit today, we recorded the following information about you: Keely Givens MD 01/30/2024 4:20 PM Signed Spoke to Lesli regarding most recent chest CT. Minimal areas of subpleural reticulations in lower lobes. Three nodules, largest in RLL, calcified with new area of adjacent ground glass infiltrate, bronchiectasis and mild emphysema. She will need a follow-up CT. Allergies As of Date: 01/30/2024 (No Known Allergies) Date Reviewed: 01/17/2024 Reviewed by: Maddie Costa LPN - Fully Assessed Reason for Visit: Results [95] Cmt: Chest CT Primary Visit Diagnosis:Lung nodules [R91.8] Other Visit Diagnosis:Ground glass opacity present on imaging of lung [R91.8] Order(s):CT CHEST WO SRAVAN [[id number]] Order #: [id number] FUTURE Prescriptions as of 01/30/2024 - lidocaine (LIDODERM) 5 % - gabapentin (NEURONTIN) 100 mg capsule Take 100 mg by mouth three times a day. - famotidine (PEPCID) 20 mg tablet TAKE 1 TABLET BY MOUTH ONCE DAILY - hydroCHLOROthiazide 12.5 mg capsule TAKE 1 CAPSULE BY MOUTH ONCE DAILY - hydrOXYzine HCl (ATARAX) 25 mg tablet Take 1 tablet by mouth three times a day as needed. - tiotropium (SPIRIVA WITH HANDIHALER) 18 mcg inhalation capsule inhale THE CONTENTS OF ONE CAPSULE IN THE HANDIHALER every morning - risankizumab-rzaa (SKYRIZI) 150 mg/mL injection Inject 150 mg subcutaneously every 3 months. - budesonide-formoterol (SYMBICORT) 160-4.5 mcg/actuation inhaler Inhale 2 Puffs as instructed two times a day. - rivaroxaban (XARELTO) 20 mg tablet Take 1 tablet by mouth daily with dinner. - atenolol (TENORMIN) 25 mg tablet Take 1 tablet by mouth once daily. - albuterol HFA (PROVENTIL HFA, VENTOLIN HFA) 90 mcg/actuation inhaler - baclofen (LIORESAL) 5 mg tablet Take 5 mg by mouth twice daily. - betamethasone valerate 0.1 % cream Apply to affected area once daily. Apply to arms - traMADol (ULTRAM) 50 mg tablet Take 50 mg by mouth twice daily. 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.611] 07/05/2022 Cervical spondylosis [M47.812] 07/05/2022 Chronic obstructive pulmonary disease (HCC) [J4*07/05/2022 Chronic atrial fibrillation (HCC) [I48.20] 07/05/2022 HTN (hypertension), benign [I10] 07/05/2022 Psoriasis, unspecified [L40.9] 07/05/2022 Chronic midline low back pain without sciatica *07/05/2022 Psoriatic arthritis (HCC) [L40.50] 07/05/2022 Restrictive lung disease [J98.4] 06/16/2023 Lung nodules [R91.8] 06/16/2023 Preop examination [Z01.818] 08/07/2023 Paroxysmal atrial fibrillation (HCC) [I48.0] 08/07/[address] scan, colon [R93.3] 08/07/2023 Chronic constipation [K59.09] 08/07/2023 Interstitial pulmonary disease (HCC) [J84.9] 12/28/2023 Idiopathic pulmonary fibrosis (HCC) [J84.112] 01/17/2024 Obesity, Class I, BMI 30-34.9 [E66.9] 01/17/2024 Mild memory disturbances not amounting to demen*01/17/2024 Encounter Status:Closed by KEELY GIVENS [facility]30[facility] (PULYanelyWS) LESLI ROSALES ([id number]) 1940 F Date Time Provider Department 01/26/24 KEELY GIVENS PULCELESTE During your visit today, we recorded the following information about you: Keri Randolph, LISA 01/26/2024 2:52 PM Signed Patient calling in asking about the results from the Chest CT done on 01/19/24. LISA Olsen Danelle, LISA 01/26/2024 4:38 PM Signed Dania Kent PA-C [facility] Pulmonology Pool; Akshat Bermudez LPN13 minutes ago (4:18 PM) Please check on symptoms. Patient has groundglass area around nodule that was not on previous scan. Is she having increased cough, sputum production, fevers/chills? Keri Deleon RN 01/26/2024 4:38 PM Signed Called and spoke with the patient. Patient reports increased sob but denies any increased cough, sputum production, fevers/chills. LISA Olsen Linda, MA 01/31/2024 8:36 AM Signed Patient calling and asking if she can have a copy of her lung scan report? She would like it left at the front edger. She will be here today around 2:30? She would like a call when the report is ready for lemon picker. Akshat Bermudez LPN 01/31/2024 9:11 AM Signed Patient notified report is at 2nd floor PSS desk for lemon picker Akshat Bermudez LPN Allergies As of Date: 01/26/2024 (No Known Allergies) Date Reviewed: 01/17/2024 Reviewed by: Maddie Costa LPN - Fully Assessed Reason for Visit: Results [95] Prescriptions as of 01/31/2024 - lidocaine (LIDODERM) 5 % - gabapentin (NEURONTIN) 100 mg capsule Take 100 mg by mouth three times a day. - famotidine (PEPCID) 20 mg tablet TAKE 1 TABLET BY MOUTH ONCE DAILY - hydroCHLOROthiazide 12.5 mg capsule TAKE 1 CAPSULE BY MOUTH ONCE DAILY - hydrOXYzine HCl (ATARAX) 25 mg tablet Take 1 tablet by mouth three times a day as needed. - tiotropium (SPIRIVA WITH HANDIHALER) 18 mcg inhalation capsule inhale THE CONTENTS OF ONE CAPSULE IN THE HANDIHALER every morning - risankizumab-rzaa (SKYRIZI) 150 mg/mL injection Inject 150 mg subcutaneously every 3 months. - budesonide-formoterol (SYMBICORT) 160-4.5 mcg/actuation inhaler Inhale 2 Puffs as instructed two times a day. - rivaroxaban (XARELTO) 20 mg tablet Take 1 tablet by mouth daily with dinner. - atenolol (TENORMIN) 25 mg tablet Take 1 tablet by mouth once daily. - albuterol HFA (PROVENTIL HFA, VENTOLIN HFA) 90 mcg/actuation inhaler - baclofen (LIORESAL) 5 mg tablet Take 5 mg by mouth twice daily. - betamethasone valerate 0.1 % cream Apply to affected area once daily. Apply to arms - traMADol (ULTRAM) 50 mg tablet Take 50 mg by mouth twice daily. 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] 07/05/2022 Cervical spondylosis [M47.812] 07/05/2022 Chronic obstructive pulmonary disease (HCC) [J4*07/05/2022 Chronic atrial fibrillation (HCC) [I48.20] 07/05/2022 HTN (hypertension), benign [I10] 07/05/2022 Psoriasis, unspecified [L40.9] 07/05/2022 Chronic midline low back pain without sciatica *07/05/2022 Psoriatic arthritis (HCC) [L40.50] 07/05/2022 Restrictive lung disease [J98.4] 06/16/2023 Lung nodules [R91.8] 06/16/2023 Preop examination [Z01.818] 08/07/2023 Paroxysmal atrial fibrillation (HCC) [I48.0] 08/07/[address] scan, colon [R93.3] 08/07/2023 Chronic constipation [K59.09] 08/07/2023 Interstitial pulmonary disease (HCC) [J84.9] 12/28/2023 Idiopathic pulmonary fibrosis (HCC) [J84.112] 01/17/2024 Obesity, Class I, BMI 30-34.9 [E66.9] 01/17/2024 Mild memory disturbances not amounting to demen*01/17/2024 Encounter Status:Closed by AKSHAT BERMUDEZ on 01/31/24 Normal [facility] CT CHEST WO IVCONon 01-19-20 CT CHEST WO IVCON * * *Final Report* * * DATE OF EXAM: Jan 19 2024 10:56AM [facility] 0541 - CT CHEST WO IVCON / PROCEDURE REASON: * * * * Physician Interpretation * * * * EXAMINATION: CHEST CT WITHOUT CONTRAST CLINICAL HISTORY: Dyspnea. Shortness of breath. Technique: Spiral CT acquisition of the chest from the thoracic inlet to the upper abdomen without contrast. MQ: [id number] CT Radiation dose: Integrated Dose-length product (DLP) for this visit = 436.18 mGy*cm CT Dose Reduction Employed: Automated exposure control(AEC) and iterative recon Comparison: CT chest 05/17/2021. RESULT: Limitations: None. Lines, tubes, and devices: None. Lung parenchyma and airways: Dominant calcified nodule in the right upper lobe measures 1.4 cm and is unchanged from 05/17/2021. Additional smaller adjacent calcified nodules. New area of ill-defined groundglass adjacent to these nodules (3:111). Additional scattered calcified granulomas are unchanged. Additional bilateral pulmonary nodules are unchanged, for example: * 0.6 cm left upper lobe nodule (3:87) * 1.0 x 0.8 cm right lower lobe nodule (3:112) * 0.5 cm left lower lobe nodule (3:137) Mild centrilobular emphysema. Scarring in the lingula and bilateral lower lobes. Bronchiectasis predominantly in the lower lobes. Mild subpleural reticular changes predominantly in the lower lobes, likely related to underlying interstitial lung disease and unchanged. No honeycombing. Pleural space: No pleural effusion. No pleural thickening. Lower neck, lymph nodes, and mediastinum: The imaged thyroid gland is normal. No lymphadenopathy in the supraclavicular, axillary, mediastinal, or hilar regions. Heart, pericardium, and thoracic vessels: Ectatic ascending thoracic aorta measuring 4.0 cm. Atherosclerosis of the thoracic aorta. The main pulmonary artery measures 3.4 cm, previously 3.3 cm. Mild cardiomegaly with severe coronary artery calcifications. Bones and soft tissues: Degenerative changes. Osteopenia. Right shoulder arthroplasty. Multiple chronic right sided rib deformities. Upper abdomen: No abnormality in the imaged upper abdomen. Localizer images: No additional findings. IMPRESSION: New area of groundglass adjacent to stable calcified pulmonary nodules in the right upper lobe, possibly infectious/inflammatory. Follow-up CT could be considered to assess for resolution. Additional stable calcified granulomas and noncalcified pulmonary nodules, as described. Bronchiectasis in the lower lobes with underlying subpleural reticular changes, likely sequela of underlying interstitial lung disease. Head Tennis Professional: PSCB Transcribe Date/Time: Jan 24 2024 3:02P Dictated by : UMA HARDY MD This examination was interpreted and the report reviewed and electronically signed by: UMA HARDY MD on Jan 24 2024 3:19PM EST [id number] Normal [facility] Comprehensive metabolic 2000 panelon 01-19-2024 Albumin [Mass/Vol] 3.7 g/dL Low 3.9-4.9 [facility] Comment on above: Order Comment: Speci men Type: BLOOD SPECIMEN Ordering Facility: [facility] Address: [address] [place] [address] Performed By: #### 2 4323-8 #### [facility] CLIA [id number] [address] [place] [address] [place] [facility] ALP [Catalytic activity/Vol] 92 U/L Normal 34-123 [facility] Comment on above: Order Comment: Speci men Type: BLOOD SPECIMEN Ordering Facility: [facility] Address: [address] [place] [address] Performed By: #### 2 4323-8 #### [facility] CLIA [id number] [address] [place] [address] [place] ALT With P-5'-P [Catalytic activity/Vol] 12 U/L Normal 7-38 [facility] Comment on above: Order Comment: Speci men Type: BLOOD SPECIMEN Ordering Facility: [facility] Address: [address] [place] [address] Performed By: #### 2 4323-8 #### [facility] CLIA [id number] [address] [place] [address] [place] Anion gap [Moles/Vol] 7 mmol/L Low 9-18 [facility] Comment on above: Order Comment: Speci men Type: BLOOD SPECIMEN Ordering Facility: [facility] Address: [address] [place] [address] Performed By: #### 2 4323-8 #### [facility] CLIA [id number] [address] [place] [address] [place] AST With P-5'-P [Catalytic activity/Vol] 20 U/L Normal 13-35 [facility] Comment on above: Order Comment: Speci men Type: BLOOD SPECIMEN Ordering Facility: [facility] Address: [address] [place] [address] Performed By: #### 2 4323-8 #### [facility] CLIA [id number] [address] [place] [address] [place] Bilirubin [Mass/Vol] 1.0 mg/dL Normal 0.2-1.3 [facility] Comment on above: Order Comment: Speci men Type: BLOOD SPECIMEN Ordering Facility: [facility] Address: [address] [place] [address] Performed By: #### 2 4323-8 #### [facility] CLIA [id number] [address] [place] [address] [place] Calcium [Mass/Vol] 9.5 mg/dL Normal 8.5-10.2 [facility] Comment on above: Order Comment: Speci men Type: BLOOD SPECIMEN Ordering Facility: [facility] Address: [address] [place] [address] Performed By: #### 2 4323-8 #### [facility] CLIA [id number] [address] [place] [address] [place] Chloride [Moles/Vol] 100 mmol/L Normal 97-105 [facility] Comment on above: Order Comment: Speci men Type: BLOOD SPECIMEN Ordering Facility: [facility] Address: [address] [place] [address] Performed By: #### 2 4323-8 #### [facility] CLIA [id number] [address] [place] [address] [place] CO2 [Moles/Vol] 34 mmol/L High 22-30 [facility] Comment on above: Order Comment: Speci men Type: BLOOD SPECIMEN Ordering Facility: [facility] Address: [address] [place] [address] Performed By: #### 2 4323-8 #### [facility] CLIA [id number] [address] [place] [address] [place] Creatinine [Mass/Vol] 0.59 mg/dL Normal 0.58-0.96 [facility] Comment on above: Order Comment: Nafisa hutton Type: BLOOD SPECIMEN Ordering Facility: [facility] Address: [address] [place] [address] Performed By: #### 2 4323-8 #### [facility] CLIA [id number] [address] [place] [address] [facility] OF [place] Creatinine and Glomerular filtration rate.predicted panel (S/P/Bld) 90 mL/min/1.73m??? Normal >=60 [facility] Comment on above: Order Comment: Nafisa hutton Type: BLOOD SPECIMEN Ordering Facility: [facility] Address: [address] [place] [address] Result Comment: Sandra mated Glomerular Filtration Rate (eGFR) is calculated using the 2020 CKD-EPI creatinine equation. This equation utilizes serum creatinine, sex, and age as parameters. The creatinine assay has traceable calibration to isotope dilution-mass spectrometry. Refer to KDIGO guidelines for clinical interpretation. In patients with unstable renal function, e.g. those with acute kidney injury, the eGFR may not accurately reflect actual GFR. Performed By: #### 2 4323-8 #### [facility] CLIA [id number] [address] [place] [address] [place] Glucose [Mass/Vol] 81 mg/dL Normal 74-99 [facility] Comment on above: Order Comment: Nafisa hutton Type: BLOOD SPECIMEN Ordering Facility: [facility] Address: [address] [place] [address] Result Comment: The [place] [employer] (ADA) provides guidance for cutoff values for fasting glucose and random glucose. The ADA defines fasting as no caloric intake for at least 8 hours. Fasting plasma glucose results between 100 to 125 mg/dL indicate increased risk for diabetes (prediabetes). Fasting plasma glucose results greater than or equal to 126 mg/dL meet the criteria for diagnosis of diabetes. In the absence of unequivocal hyperglycemia, results should be confirmed by repeat testing. In a patient with classic symptoms of hyperglycemia or hyperglycemic crisis, random plasma glucose results greater than or equal to 200 mg/dL meet the criteria for diagnosis of diabetes. Reference: Standards of Medical Care in Diabetes 2016, [place] [employer]. Diabetes Care. 2016.39(Suppl 1). Performed By: #### 2 4323-8 #### [facility] CLIA [id number] [address] [place] [address] [place] Potassium [Moles/Vol] 3.9 mmol/L Normal 3.7-5.1 [facility] Comment on above: Order Comment: Speci men Type: BLOOD SPECIMEN Ordering Facility: [facility] Address: [address] [place] [address] Performed By: #### 2 4323-8 #### [facility] CLIA [id number] [address] [place] [address] [place] Protein [Mass/Vol] 7.2 g/dL Normal 6.3-8.0 [facility] Comment on above: Order Comment: Speci men Type: BLOOD SPECIMEN Ordering Facility: [facility] Address: [address] [place] [address] Performed By: #### 2 4323-8 #### [facility] CLIA [id number] [address] [place] [address] [place] Sodium [Moles/Vol] 141 mmol/L Normal 136-144 [facility] Comment on above: Order Comment: Leisai men Type: BLOOD SPECIMEN Ordering Facility: [facility] Address: [address] [place] [address] Performed By: #### 2 4323-8 #### [facility] CLIA [id number] [address] [place] [address] [place] Urea nitrogen [Mass/Vol] 17 mg/dL Normal 7-21 [facility] Comment on above: Order Comment: Speci men Type: BLOOD SPECIMEN Ordering Facility: [facility] Address: [address] [place] [address] Performed By: #### 2 4323-8 #### [facility] CLIA [id number] [address] [place] [address] [place] PAIN PANEL, UR QUANTon 01-18 2-Owxphvmhlw-5,5-Dime thyl-3,3-Diphenylpyrr olidine (EDDP) Confirm (U) [Mass/Vol] <6 Normal <6 [facility] Comment on above: Order Comment: Speci men Type: URINE SPECIMEN Ordering Facility: External Submitter Address: , , Result Comment: EDDP is a metabolite of methadone. Performed By: #### L [id number] #### [facility] [place] [id number] [address] [place] [address] [place] 6-Monoacetylmorphine (6-AZAR) (U) [Mass/Vol] <5 Normal <5 [facility] Comment on above: Order Comment: Speci men Type: URINE SPECIMEN Ordering Facility: External Submitter Address: , , Result Comment: 6-MA M (6-monoacetylmorphine, also known as 6-acetylmorphine) is a unique metabolite of heroin. Presence of 6-AZAR indicates use of heroin. 6-AZAR is further metabolized to morphine and absence of 6-AZAR does not rule out the use of heroin. Performed By: #### L [id number] #### [facility] [place] [id number] [address] [place] [address] [place] Amphetamine Confirm (U) [Mass/Vol] <5 Normal <5 [facility] Comment on above: Order Comment: Speci men Type: URINE SPECIMEN Ordering Facility: External Submitter Address: , , Performed By: #### L [id number] #### [facility] [place] [id number] [address] [place] [address] [place] Benzoylecgonine Confirm (U) [Mass/Vol] <24 Normal <24 [facility] Comment on above: Order Comment: Speci men Type: URINE SPECIMEN Ordering Facility: External Submitter Address: , , Result Comment: Daniel oylecgonine is a metabolite of cocaine. Performed By: #### L [id number] #### [facility] CLIA [id number] [address] [place] [address] [place] Buprenorphine (U) [Mass/Vol] <20 Normal <20 [facility] Comment on above: Order Comment: Speci men Type: URINE SPECIMEN Ordering Facility: External Submitter Address: , , Performed By: #### L [id number] #### [facility] [place] [id number] [address] [place] [address] [place] Cannabinoids Confirm (U) [Mass/Vol] <16 Normal <16 [facility] Comment on above: Order Comment: Speci men Type: URINE SPECIMEN Ordering Facility: External Submitter Address: , , Result Comment: Tetr ahydrocannabinol carboxylic acid (THCA) is a metabolite of xxjyh-1-hhmhdmbjojgmbxlbugxu which is the main active component of marijuana. Performed By: #### L [id number] #### [facility] [place] [id number] [address] [place] [address] [place] Codeine Confirm (U) [Mass/Vol] <11 Normal <11 [facility] Comment on above: Order Comment: Speci men Type: URINE SPECIMEN Ordering Facility: External Submitter Address: , , Performed By: #### L [id number] #### [facility] [place] [id number] [address] [place] [address] [place] Dihydrocodeine Confirm (U) [Mass/Vol] <5 Normal <5 [facility] Comment on above: Order Comment: Speci men Type: URINE SPECIMEN Ordering Facility: External Submitter Address: , , Performed By: #### L [id number] #### [facility] CLIA [id number] [address] [place] [address] [place] fentaNYL Confirm (U) [Mass/Vol] <6 Normal <6 [facility] Comment on above: Order Comment: Speci men Type: URINE SPECIMEN Ordering Facility: External Submitter Address: , , Performed By: #### L [id number] #### [facility] [place] [id number] [facility] [address] HYDROcodone Confirm (U) [Mass/Vol] <8 Normal <8 [facility] Comment on above: Order Comment: Speci men Type: URINE SPECIMEN Ordering Facility: External Submitter Address: , , Result Comment: Hydr ocodone is a metabolite of dihydrocodeine. Performed By: #### L [id number] #### [facility] [place] [id number] [address] [place] [address] HYDROmorphone Confirm (U) [Mass/Vol] <5 Normal <5 [facility] Comment on above: Order Comment: Speci men Type: URINE SPECIMEN Ordering Facility: External Submitter Address: , , Result Comment: Hydr omorphone is a metabolite of hydrocodone. Performed By: #### L [id number] #### [facility] [place] [id number] [address] [place] [address] Methadone Confirm (U) [Mass/Vol] <16 Normal <16 [facility] Comment on above: Order Comment: Speci men Type: URINE SPECIMEN Ordering Facility: External Submitter Address: , , Performed By: #### L [id number] #### [facility] [place] [id number] [address] [place] [address] [place] Methamphetamine Confirm (U) [Mass/Vol] <8 Normal <8 [facility] Comment on above: Order Comment: Speci men Type: URINE SPECIMEN Ordering Facility: External Submitter Address: , , Performed By: #### L [id number] #### [facility] [place] [id number] [address] [place] [address] Morphine Confirm (U) [Mass/Vol] <10 Normal <10 [facility] Comment on above: Order Comment: Speci men Type: URINE SPECIMEN Ordering Facility: External Submitter Address: , , Result Comment: Morp paris is a metabolite of codeine and heroin. Performed By: #### L [id number] #### [facility] CLIA [id number] [address] [place] Norbuprenorphine (U) [Mass/Vol] <20 Normal <20 [facility] Comment on above: Order Comment: Speci men Type: URINE SPECIMEN Ordering Facility: External Submitter Address: , , Result Comment: Norb uprenorphine is the primary active metabolite of buprenorphine. Performed By: #### L [id number] #### [facility] CLIA [id number] [address] OF [facility] Norfentanyl Confirm (U) [Mass/Vol] <6 Normal <6 [facility] Comment on above: Order Comment: Speci men Type: URINE SPECIMEN Ordering Facility: External Submitter Address: , , Result Comment: Norf entanyl is a metabolite of fentanyl. Performed By: #### L [id number] #### [facility] CLIA [id number] [address] [place] Nortramadol (U) [Mass/Vol] >5000 High <20 [facility] Comment on above: Order Comment: Speci men Type: URINE SPECIMEN Ordering Facility: External Submitter Address: , , Result Comment: O-De smethyltramadol is a metabolite of tramadol and its presence indicates use of a tramadol containing drug (Ultram). Performed By: #### L [id number] #### [facility] CLIA [id number] [address] [place] [address] [place] Performed By: #### L [id number] #### [facility] CLIA [id number] [address] [place] [address] [place] NOTE,UR PAIN BARRERA Normal [facility] Comment on above: Order Comment: Speci men Type: URINE SPECIMEN Ordering Facility: External Submitter Address: , , Result Comment: This test is for medical use only. This test was developed and its performance characteristics determined by [facility] [place] ([facility] It has not been cleared or approved by the FDA. [facility] is regulated under CLIA as qualified to perform high-complexity testing. This test is used for clinical purposes. It should not be regarded as investigational or for research. Performed By: #### L [id number] #### [facility] CLIA [id number] [address] oxyCODONE Confirm (U) [Mass/Vol] <10 Normal <10 [facility] Comment on above: Order Comment: Speci men Type: URINE SPECIMEN Ordering Facility: External Submitter Address: , , Performed By: #### L [id number] #### [facility] CLIA [id number] [address] OF [facility] oxyMORphone Confirm (U) [Mass/Vol] <5 Normal <5 [facility] Comment on above: Order Comment: Speci men Type: URINE SPECIMEN Ordering Facility: External Submitter Address: , , Result Comment: Oxym orphone is a metabolite of oxycodone. Performed By: #### L [id number] #### [facility] CLIA [id number] [address] traMADol Confirm (U) [Mass/Vol] >5208 High <25 [facility] Comment on above: Order Comment: Speci men Type: URINE SPECIMEN Ordering Facility: External Submitter Address: , , Result Comment: Pres ence of tramadol indicates use of a tramadol containing drug (Ultram). Tramadol is metabolized to O-Desmethyltramadol. Performed By: #### L [id number] #### [facility] CLIA [id number] [address] [place] Performed By: #### L [id number] #### [facility] CLIA [id number] [address] [place] [address] [place] SPECIMEN VALIDITY, URINEon 0 01-19-2024 CHROMATE,URINE <10 Normal <50 [facility] Comment on above: Order Comment: Speci men Type: URINE SPECIMEN Ordering Facility: External Submitter Address: , , Performed By: #### L [id number] #### [facility] CLIA [id number] [address] [place] [address] [place] CREATININE,URINE 49.5 mg/dL Normal 20.0-300.0 [facility] Comment on above: Order Comment: Speci men Type: URINE SPECIMEN Ordering Facility: External Submitter Address: , , Performed By: #### L [id number] #### [facility] CLIA [id number] [address] [place] CREATININE,URINE 49.8 mg/dL Normal 20.0-300.0 [facility] Comment on above: Order Comment: Speci men Type: URINE SPECIMEN Ordering Facility: External Submitter Address: , , Performed By: #### L [id number] #### [facility] CLIA [id number] [address] [place] [address] [place] NITRITES,URINE <50 Normal <500 [facility] Comment on above: Order Comment: Speci men Type: URINE SPECIMEN Ordering Facility: External Submitter Address: , , Performed By: #### L [id number] #### [facility] CLIA [id number] [address] [place] [address] [place] OXIDANTS,URINE <38 Normal <200 [facility] Comment on above: Order Comment: Speci men Type: URINE SPECIMEN Ordering Facility: External Submitter Address: , , Performed By: #### L [id number] #### [facility] CLIA [id number] [address] [place] [address] [place] pH (U) 7.2 [pH] Normal 4.5-8.0 [facility] Comment on above: Order Comment: Speci men Type: URINE SPECIMEN Ordering Facility: External Submitter Address: , , Performed By: #### L [id number] #### [facility] CLIA [id number] [address] [place] [address] [place] SPEC GRAVITY,UR 1.020 Normal 1.003-1.03 5 [facility] Comment on above: Order Comment: Speci men Type: URINE SPECIMEN Ordering Facility: External Submitter Address: , , Performed By: #### L [id number] #### [facility] CLIA [id number] [address] [place] [address] [place] SPEC GRAVITY,UR 1.021 Normal 1.003-1.03 5 [facility] Comment on above: Order Comment: Speci men Type: URINE SPECIMEN Ordering Facility: External Submitter Address: , , Performed By: #### L [id number] #### [facility] CLIA [id number] [address] [place] [address] [place] SPECIMEN VALIDITY QUALITY Specimen quality results within acceptable limits Normal [facility] Comment on above: Order Comment: Speci men Type: URINE SPECIMEN Ordering Facility: External Submitter Address: , , Performed By: #### L [id number] #### [facility] CLIA [id number] [address] [place] [address] [place] TOXICOLOGY SCREEN, ROUTINE U RINEon 01-19-2024 Amphetamines Confirm (U) [Mass/Vol] Negative Normal Negative [facility] Comment on above: Order Comment: Speci men Type: URINE SPECIMEN Ordering Facility: External Submitter Address: , , Result Comment: Cuto ff threshold at 1000 ng/mL. Performed By: #### U TOX2 #### [facility] CLIA [id number] [address] [place], [place] [id number] [place] [address] [place] BARBITURATES, URINE Negative Normal Negative [facility] Comment on above: Order Comment: Speci men Type: URINE SPECIMEN Ordering Facility: External Submitter Address: , , Result Comment: Cuto ff threshold at 200 ng/mL. Performed By: #### U TOX2 #### [facility] CLIA [id number] [address] [place] [address] [facility] OF [place]IM BENZODIAZEPINES, UR Negative Normal Negative [facility] Comment on above: Order Comment: Speci men Type: URINE SPECIMEN Ordering Facility: External Submitter Address: , , Result Comment: Cuto ff threshold at 200 ng/mL. Performed By: #### U TOX2 #### [facility] CLIA [id number] [address] [facility] [place] [address] [facility] OF [place] Cannabinoids Screen Ql (U) Negative Normal Negative [facility] Comment on above: Order Comment: Speci men Type: URINE SPECIMEN Ordering Facility: External Submitter Address: , , Result Comment: Cuto ff threshold at 50 ng/mL. Performed By: #### U TOX2 #### [facility] CLIA [id number] [address] [place] [address] [facility] OF ASIM Cocaine Ql (U) Negative Normal Negative [facility] Comment on above: Order Comment: Speci men Type: URINE SPECIMEN Ordering Facility: External Submitter Address: , , Result Comment: Cuto ff threshold at 300 ng/mL. Performed By: #### U TOX2 #### [facility] CLIA [id number] [address] [place] [address] [facility] OF [facility] Ethanol (U) [Mass/Vol] <11 Normal <11 [facility] Comment on above: Order Comment: Speci men Type: URINE SPECIMEN Ordering Facility: External Submitter Address: , , Performed By: #### U TOX2 #### [facility] CLIA [id number] [address] [place] [address] [facility] OF [place] Opiates Screen Ql (U) Negative Normal Negative [facility] Comment on above: Order Comment: Speci men Type: URINE SPECIMEN Ordering Facility: External Submitter Address: , , Result Comment: Cuto ff threshold at 300 ng/mL. Performed By: #### U TOX2 #### [facility] CLIA [id number] [address] [place] [address] [facility] OF [facility] oxyCODONE cutoff Screen (U) [Mass/Vol] Negative Normal Negative [facility] Comment on above: Order Comment: Speci men Type: URINE SPECIMEN Ordering Facility: External Submitter Address: , , Result Comment: Cuto ff threshold at 100 ng/mL. Performed By: #### U TOX2 #### [facility] CLIA [id number] [address] [place] [address] [facility] Phencyclidine Ql (U) Negative Normal Negative [facility] Comment on above: Order Comment: Speci men Type: URINE SPECIMEN Ordering Facility: External Submitter Address: , , Result Comment: Cuto ff threshold at 25 ng/mL. Performed By: #### U TOX2 #### [facility] CLIA [id number] [address] [place] [address] [facility] TRAMADOL + METABOLITE QUANT, URon 01-19-2024 NOTE (TRAQNT) Normal [facility] Comment on above: Order Comment: Speci men Type: URINE SPECIMEN Ordering Facility: External Submitter Address: , , Result Comment: This test is for medical use only. This test was developed and its performance characteristics determined by [facility] [place] ([facility]). It has not been cleared or approved by the FDA. -[facility] is regulated under CLIA as qualified to perform high-complexity testing. This test is used for clinical purposes. It should not be regarded as investigational or for research. Performed By: #### L [id number] #### [facility] CLIA [id number] [address] [place] [address] [place] CNOVon 01-17-2024 CNOV Office Visit (FPWADS ) LESLI ROSALES ([id number]) 1940 F Date Time Provider Department 01/17/24 1:40 PM GISELLE ELIZONDO During your visit today, we recorded the following information about you: Pulse Blood pressure Weight Height 60/minute 143/85 75 kg 1.54 m Giselle Elizondo MD 01/17/2024 5:24 PM Signed Lesli Rosales is a 83 year old female here for a Medicare wellness visit. Neuro - Admits to having troubles with her memories - Feels off balance, wobbly - Has not been to physical therapy - Has trouble stepping down/up curbs without holding onto something, can not walk a straight line - States Must be old age I guess Skin - Has a splotch on her back - Onset more than 2 months ago - Seen by flight service agent a few weeks ago - Was given topical ointment, has not beneficial - Spot is still there, states that it is itchy and become painful when standing for a long period of time Weight - Is trying to lose weight, weight tends to fluctuate but overall feels that she been successful - Last 3 Encounter Wt Readings: Date: Wt: 01/17/2024 75 kg (165 lb 5.5 oz) 12/28/2023 72.1 kg (159 lb) 11/26/2023 74.1 kg (163 lb 5.8 oz) Medicare Health Risk Assessment General Health Good Exercise: Minutes/Day Exercise: Days/Week Alcohol: Daily Use No Alcohol: Drinks/Day Alcohol: 6 or more drinks Feel off balance Yes Concerns: Teeth/Dentures No Concerns: Sexual function No Troubled by feelings No Frequency: Eating healthy diet Most days ADLs requiring help None Safety precautions in home/vehicle Yes Smoke, vape, chews tobacco Former smoker, quit in 1975 Difficulty hearing No Difficulty seeing No Current Providers Specialists: I have reviewed specialist-related care of the patient in the medical record. Medical/Family history review Reviewed and updated problem list, medical/surgical/family/soc ial history, medications, and allergies. Opioid use review Opioid Medications (last 90 days) 01/17/2024 Opioid Medications tramadol HCl 50 mg BID ORAL (50 mg tab) No sig Details Patient-reported medication Depression screening 01/17/24 - 07/05/2022 11/28/2022 11/28/2022 Depression Screening PHQ-2 Score 3 2 2 Depression screening tool completed and reviewed. Based on score and interview, patient is not at risk for depression. Screening tool discussed with patient, and I recommended no further intervention at this time. Cognitive screening Cognitive screening reviewed and Recommended referral for further evaluation (score 0-2). Functional Observation Was the patient's timed Up AND Go test unsteady or ? 12 seconds? Yes Advance Care Planning Patient did not wish or was not able to name a surrogate decision maker or provide an advance care plan Measurements BP 143/85 Pulse 60 Ht 154 cm (5' 0.63) Wt 75 kg (165 lb 5.5 oz) SpO2 100% BMI 31.62 kg/m? General: Alert, well developed, well nourished, no distress, pleasant and cooperative. Obese. HEENT: No adenopathy or thyromegaly Heart: Regular rate and rhythm. Normal S1 and S2. No murmurs, rubs, or gallops. Lungs: Clear to auscultation bilaterally. No respiratory distress. No wheezes, rales, or rhonchi. Abdomen: Soft, non-tender, no distention Extremities: Feet/ankles without edema, posterior tibial pulses full and symmetrical she has a mildly broad based gait Skin: sun damage, the R upper back medial to the scapula has excoriations (from her scratching her back for her) Musculoskeletal: artritis changes Assessment/Plan Medicare annual wellness visit, initial (Z.) - Fall avoidance information provided - Personalized prevention plan provided (Z.) Medicare annual wellness visit, subsequent (primary encounter diagnosis) Comment: Generally healthy adult female here for Medicare wellness visit Plan: As below (J84.112) Idiopathic pulmonary fibrosis (HCC) Comment: Follows with pulmonology Plan: Continue current treatment plan (L40.50) Psoriatic arthritis (HCC) Comment: Well managed with Skyrizi and gabapentin Plan: continue current treatment plan (E66.9) Obesity, Class I, BMI 30-34.9 Comment: pt is currently working on losing weight Plan: Encouraged healthy diet and regular exercise (R41.3) 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 . Recommended further evaluation, which she declines at this time Plan: Will continue to monitor (R26.9) Abnormality of gait (R29.6) Falling episodes Comment: Ongoing. Recommended further evaluation and/or physical therapy, which she declines at this time. Fall avoidance education provided today in office. Plan: FALLS RISK EDUCATION Will continue to monitor she is offered a physical therapy eval (more content not included)... Normal [facility] MARJNon 01-09-2024 PRITI Telephone (FPWADELROY) LESLI ROSALES ([id number]) 1940 F Date Time Provider Department 01/09/24 GISELLE ELIZONDO During your visit today, we recorded the following information about you: Giselle Elizondo MD 01/09/2024 3:43 PM Signed Blood count ok MD Юлия Rollins Lisa, LPN 01/09/2024 4:16 PM Signed Voicemail not activated. Maddie Costa LPN 01/10/2024 1:34 PM Signed Called and informed pt of results. Pt indicated understanding and also states her labs in october showed low potassium and elevated sodium. Informed pt that this additional lab work cannot be added on to previously drawn labs as it is not the correct tube type. Pt has appt 01/18 with PCP and asks if she should have CMP drawn prior to this appt so results can be discussed at that time. Please advise. Ana Mace APRN.MARJ 01/10/2024 1:47 PM Signed Lab ordered, nonfasting Ana Mace APRN.Marjorie Manzano LPN 01/10/2024 2:43 PM Signed Patient will have lab drawn the day of appointment. Allergies As of Date: 01/09/2024 (No Known Allergies) Date Reviewed: 12/28/2023 Reviewed by: Keely Givens MD - Fully Assessed Primary Visit Diagnosis:Hypokalemia [E87.6] Order(s):COMPREHENSIVE METABOLIC PANEL [SQCMP] Order #: [id number] FUTURE Prescriptions as of 01/10/2024 - lidocaine (LIDODERM) 5 % - gabapentin (NEURONTIN) 100 mg capsule Take 100 mg by mouth three times a day. - famotidine (PEPCID) 20 mg tablet TAKE 1 TABLET BY MOUTH ONCE DAILY - hydroCHLOROthiazide 12.5 mg capsule TAKE 1 CAPSULE BY MOUTH ONCE DAILY - hydrOXYzine HCl (ATARAX) 25 mg tablet Take 1 tablet by mouth three times a day as needed. - tiotropium (SPIRIVA WITH HANDIHALER) 18 mcg inhalation capsule inhale THE CONTENTS OF ONE CAPSULE IN THE HANDIHALER every morning - risankizumab-rzaa (SKYRIZI) 150 mg/mL injection Inject 150 mg subcutaneously every 3 months. - budesonide-formoterol (SYMBICORT) 160-4.5 mcg/actuation inhaler Inhale 2 Puffs as instructed two times a day. - rivaroxaban (XARELTO) 20 mg tablet Take 1 tablet by mouth daily with dinner. - atenolol (TENORMIN) 25 mg tablet Take 1 tablet by mouth once daily. - albuterol HFA (PROVENTIL HFA, VENTOLIN HFA) 90 mcg/actuation inhaler - baclofen (LIORESAL) 5 mg tablet Take 5 mg by mouth twice daily. - betamethasone valerate 0.1 % cream Apply to affected area once daily. Apply to arms - traMADol (ULTRAM) 50 mg tablet Take 50 mg by mouth twice daily. 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] 07/05/2022 Cervical spondylosis [M47.812] 07/05/2022 Chronic obstructive pulmonary disease (HCC) [J4*07/05/2022 Chronic atrial fibrillation (HCC) [I48.20] 07/05/2022 HTN (hypertension), benign [I10] 07/05/2022 Psoriasis, unspecified [L40.9] 07/05/2022 Chronic midline low back pain without sciatica *07/05/2022 Psoriatic arthritis (HCC) [L40.50] 07/05/2022 Restrictive lung disease [J98.4] 06/16/2023 Lung nodules [R91.8] 06/16/2023 Preop examination [Z01.818] 08/07/2023 Paroxysmal atrial fibrillation (HCC) [I48.0] 08/07/[address] scan, colon [R93.3] 08/07/2023 Chronic constipation [K59.09] 08/07/2023 Interstitial pulmonary disease (HCC) [J84.9] 12/28/2023 Encounter Status:Closed by MARJORIE REDMAN on 01/10/24 Normal [facility] CBC panel Auto (Bld)on 01-07 Erythrocyte distribution width (RBC) [Ratio] 13.5 % Normal 11.5-15.0 [facility] Comment on above: Order Comment: Speci men Type: URINE SPECIMEN Ordering Facility: External Submitter Address: , , Performed By: #### U TOX2 #### [facility] CLIA [id number] [address] [place] [address] OF [facility] Hematocrit (Bld) [Volume fraction] 47.9 % High 36.0-46.0 [facility] Comment on above: Order Comment: [facility] Type: URINE SPECIMEN Ordering Facility: External Submitter Address: , , Performed By: #### U TOX2 #### [facility] CLIA [id number] [address] [place] [id number] [place] [address] [place] Hemoglobin (Bld) [Mass/Vol] 15.1 g/dL Normal 11.5-15.5 [facility] Comment on above: Order Comment: Speci men Type: URINE SPECIMEN Ordering Facility: External Submitter Address: , , Performed By: #### U TOX2 #### [facility] CLIA [id number] [address] [place] [address] [place] MCH (RBC) [Entitic mass] 32.5 pg Normal 26.0-34.0 [facility] Comment on above: Order Comment: Speci men Type: URINE SPECIMEN Ordering Facility: External Submitter Address: , , Performed By: #### U TOX2 #### [facility] CLIA [id number] [address] [place] [address] [facility] OF [facility] MCHC (RBC) [Mass/Vol] 31.5 g/dL Normal 30.5-36.0 [facility] Comment on above: Order Comment: Speci men Type: URINE SPECIMEN Ordering Facility: External Submitter Address: , , Performed By: #### U TOX2 #### [facility] CLIA [id number] [address] [place] [address] [facility] MCV (RBC) [Entitic vol] 103.2 fL High 80.0-100.0 [facility] Comment on above: Order Comment: Speci men Type: URINE SPECIMEN Ordering Facility: External Submitter Address: , , Performed By: #### U TOX2 #### [facility] CLIA [id number] [address] [place], [place] [id number] [place] [address] Platelet mean volume (Bld) [Entitic vol] 11.0 fL Normal 9.0-12.7 [facility] Comment on above: Order Comment: Speci men Type: URINE SPECIMEN Ordering Facility: External Submitter Address: , , Performed By: #### U TOX2 #### [facility] CLIA [id number] [address] Platelets (Bld) [#/Vol] 190 10*3/uL Normal 150-400 [facility] Comment on above: Order Comment: Speci men Type: URINE SPECIMEN Ordering Facility: External Submitter Address: , , Performed By: #### U TOX2 #### [facility] CLIA [id number] [address] [place] [address] [facility] RBC (Bld) [#/Vol] 4.64 10*6/uL Normal 3.90-5.20 [facility] Comment on above: Order Comment: Speci men Type: URINE SPECIMEN Ordering Facility: External Submitter Address: , , Performed By: #### U TOX2 #### [facility] CLIA [id number] [address] [place] [address] [facility] WBC (Bld) [#/Vol] 9.25 10*3/uL Normal 3.70-11.00 [facility] Comment on above: Order Comment: Speci men Type: URINE SPECIMEN Ordering Facility: External Submitter Address: , , Performed By: #### U TOX2 #### [facility] CLIA [id number] [address] [place] [address] [facility] CNPNon 01-05-2024 CNPN Telephone (PULMWS) LESLI ROSALES ([id number]) 1940 F Date Time Provider Department 01/05/24 KEELY GIVENS During your visit today, we recorded the following information about you: Antonina Godinez 01/05/2024 9:52 AM Signed Patient called and is dropping off her Pulmonology report of her CT back in 2021 from [facility] in the next few weeks. Akshat Williamson LPN 01/05/2024 10:02 AM Signed Noted. Thank you! Allergies As of Date: 01/05/2024 (No Known Allergies) Date Reviewed: 12/28/2023 Reviewed by: Keely Givens MD - Fully Assessed Prescriptions as of 01/05/2024 - lidocaine (LIDODERM) 5 % - gabapentin (NEURONTIN) 100 mg capsule Take 100 mg by mouth three times a day. - famotidine (PEPCID) 20 mg tablet TAKE 1 TABLET BY MOUTH ONCE DAILY - hydroCHLOROthiazide 12.5 mg capsule TAKE 1 CAPSULE BY MOUTH ONCE DAILY - hydrOXYzine HCl (ATARAX) 25 mg tablet Take 1 tablet by mouth three times a day as needed. - tiotropium (SPIRIVA WITH HANDIHALER) 18 mcg inhalation capsule inhale THE CONTENTS OF ONE CAPSULE IN THE HANDIHALER every morning - risankizumab-rzaa (SKYRIZI) 150 mg/mL injection Inject 150 mg subcutaneously every 3 months. - budesonide-formoterol (SYMBICORT) 160-4.5 mcg/actuation inhaler Inhale 2 Puffs as instructed two times a day. - rivaroxaban (XARELTO) 20 mg tablet Take 1 tablet by mouth daily with dinner. - atenolol (TENORMIN) 25 mg tablet Take 1 tablet by mouth once daily. - albuterol HFA (PROVENTIL HFA, VENTOLIN HFA) 90 mcg/actuation inhaler - baclofen (LIORESAL) 5 mg tablet Take 5 mg by mouth twice daily. - betamethasone valerate 0.1 % cream Apply to affected area once daily. Apply to arms - traMADol (ULTRAM) 50 mg tablet Take 50 mg by mouth twice daily. 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] 07/05/2022 Cervical spondylosis [M47.812] 07/05/2022 Chronic obstructive pulmonary disease (HCC) [J4*07/05/2022 Chronic atrial fibrillation (HCC) [I48.20] 07/05/2022 HTN (hypertension), benign [I10] 07/05/2022 Psoriasis, unspecified [L40.9] 07/05/2022 Chronic midline low back pain without sciatica *07/05/2022 Psoriatic arthritis (HCC) [L40.50] 07/05/2022 Restrictive lung disease [J98.4] 06/16/2023 Lung nodules [R91.8] 06/16/2023 Preop examination [Z01.818] 08/07/2023 Paroxysmal atrial fibrillation (HCC) [I48.0] 08/07/[address] scan, colon [R93.3] 08/07/2023 Chronic constipation [K59.09] 08/07/2023 Interstitial pulmonary disease (HCC) [J84.9] 12/28/2023 Encounter Status:Closed by AKSHAT BERMUDEZ on 01/05/24 Normal [facility] CNCOon 01-04-2024 CNCO Letter Text Normal [facility] STREP A MOLECULAR (POC)on Procedural Control Valid [facility] Strep A (POCT) Negative Negative [facility] metabolic 2000 panelon 11-06-2023 Albumin [Mass/Vol] 3.7 g/dL Low 3.9-4.9 [facility] Comment on above: Order Comment: Speci men Type: BLOOD SPECIMEN Ordering Facility: [facility] Address: [address] [place] [address] Performed By: #### 2 4323-8, 3016-3 #### [facility] CLIA [id number] [address] [place] [address] [place] ALP [Catalytic activity/Vol] 86 U/L Normal 34-123 [facility] Comment on above: Order Comment: Speci men Type: BLOOD SPECIMEN Ordering Facility: [facility] Address: [address] [place] [address] Performed By: #### 2 4323-8, 3016-3 #### [facility] CLIA [id number] [address] [place] [address] [place] ALT With P-5'-P [Catalytic activity/Vol] 11 U/L Normal 7-38 [facility] Comment on above: Order Comment: Speci men Type: BLOOD SPECIMEN Ordering Facility: [facility] Address: [address] [place] [address] Performed By: #### 2 4323-8, 3016-3 #### [facility] CLIA [id number] [address] [place] [address] [place] Anion gap [Moles/Vol] 9 mmol/L Normal 9-18 [facility] Comment on above: Order Comment: Speci men Type: BLOOD SPECIMEN Ordering Facility: [facility] Address: [address] [place] [address] Performed By: #### 2 4323-8, 3016-3 #### [facility] CLIA [id number] [address] [place] [address] [place] AST With P-5'-P [Catalytic activity/Vol] 16 U/L Normal 13-35 [facility] Comment on above: Order Comment: Speci men Type: BLOOD SPECIMEN Ordering Facility: [facility] Address: [address] [id number] Performed By: #### 2 4323-8, 6-3 #### [facility] CLIA [id number] [address] [place] [address] [place] Bilirubin [Mass/Vol] 0.6 mg/dL Normal 0.2-1.3 [facility] Comment on above: Order Comment: Speci men Type: BLOOD SPECIMEN Ordering Facility: [facility] Address: [address] [place], [place] [address] Performed By: #### 2 4323-8, 3015-3 #### [facility] CLIA [id number] [address] [place] [address] [place] Calcium [Mass/Vol] 9.4 mg/dL Normal 8.5-10.2 [facility] Comment on above: Order Comment: Speci men Type: BLOOD SPECIMEN Ordering Facility: [facility] Address: [address] [place] [address] Performed By: #### 2 4323-8, 6-3 #### [facility] CLIA [id number] [address] [place] [address] [place] Chloride [Moles/Vol] 105 mmol/L Normal 97-105 [facility] Comment on above: Order Comment: Speci men Type: BLOOD SPECIMEN Ordering Facility: [facility] Address: [address] [place] [address] Performed By: #### 2 4323-8, 6-3 #### [facility] CLIA [id number] [address] [place] [address] [place] CO2 [Moles/Vol] 31 mmol/L High 22-30 [facility] Comment on above: Order Comment: Speci men Type: BLOOD SPECIMEN Ordering Facility: [facility] Address: [address] [place], [place] [address] Performed By: #### 2 4323-8, 6-3 #### [facility] CLIA [id number] [address] [place] [address] [place] Creatinine [Mass/Vol] 0.58 mg/dL Normal 0.58-0.96 [facility] Comment on above: Order Comment: Nafisa hutton Type: BLOOD SPECIMEN Ordering Facility: [facility] Address: [address] [place] [address] Performed By: #### 2 4323-8, 3016-3 #### [facility] CLIA [id number] [address] [place] [address] [facility] Creatinine and Glomerular filtration rate.predicted panel (S/P/Bld) 90 mL/min/1.73m??? Normal >=60 [facility] Comment on above: Order Comment: Nafisa hutton Type: BLOOD SPECIMEN Ordering Facility: [facility] Address: [address] [place] [address] Result Comment: Sandra mated Glomerular Filtration Rate (eGFR) is calculated using the 2020 CKD-EPI creatinine equation. This equation utilizes serum creatinine, sex, and age as parameters. The creatinine assay has traceable calibration to isotope dilution-mass spectrometry. Refer to KDIGO guidelines for clinical interpretation. In patients with unstable renal function, e.g. those with acute kidney injury, the eGFR may not accurately reflect actual GFR. Performed By: #### 2 4323-8, 6-3 #### [facility] CLIA [id number] [address] [place] [address] [place] [facility] Glucose [Mass/Vol] 87 mg/dL Normal 74-99 [facility] Comment on above: Order Comment: Nafisa hutton Type: BLOOD SPECIMEN Ordering Facility: [facility] Address: [address] [place] [address] Result Comment: The [place] Diabetes Association (ADA) provides guidance for cutoff values for fasting glucose and random glucose. The ADA defines fasting as no caloric intake for at least 8 hours. Fasting plasma glucose results between 100 to 125 mg/dL indicate increased risk for diabetes (prediabetes). Fasting plasma glucose results greater than or equal to 126 mg/dL meet the criteria for diagnosis of diabetes. In the absence of unequivocal hyperglycemia, results should be confirmed by repeat testing. In a patient with classic symptoms of hyperglycemia or hyperglycemic crisis, random plasma glucose results greater than or equal to 200 mg/dL meet the criteria for diagnosis of diabetes. Reference: Standards of Medical Care in Diabetes 2016, [place] Diabetes Association. Diabetes Care. 2016.39(Suppl 1). Performed By: #### 2 4323-8, 3016-3 #### [facility] CLIA [id number] [address] [place] [address] [place] Potassium [Moles/Vol] 3.2 mmol/L Low 3.7-5.1 [facility] Comment on above: Order Comment: Speci men Type: BLOOD SPECIMEN Ordering Facility: [facility] Address: [address] [place] [address] Performed By: #### 2 4323-8, 6-3 #### [facility] CLIA [id number] [address] [place] [address] [place] Protein [Mass/Vol] 6.7 g/dL Normal 6.3-8.0 [facility] Comment on above: Order Comment: Speci men Type: BLOOD SPECIMEN Ordering Facility: [facility] Address: [address] [place] [address] Performed By: #### 2 4323-8, 6-3 #### [facility] CLIA [id number] [address] [place] [address] [place] Sodium [Moles/Vol] 145 mmol/L High 136-144 [facility] Comment on above: Order Comment: Speci men Type: BLOOD SPECIMEN Ordering Facility: [facility] Address: [address] [place] [address] Performed By: #### 2 4323-8, 3016-3 #### [facility] CLIA [id number] [address] [place] [address] [place] Urea nitrogen [Mass/Vol] 20 mg/dL Normal 7-21 [facility] Comment on above: Order Comment: Speci men Type: BLOOD SPECIMEN Ordering Facility: [facility] Address: [address] [place] [address] Performed By: #### 2 4323-8, 3015-3 #### [facility] CLIA [id number] [address] [place] [address] [facility] HbA1c (Bld)on 11-06-2023 Average glucose Estimated from glycated hemoglobin (Bld) [Mass/Vol] 105 mg/dL Normal [facility] Comment on above: Order Comment: Speci men Type: URINE SPECIMEN Ordering Facility: External Submitter Address: , , Result Comment: eAG: (Estimated average glucose) is a calculated value from HgbA1c and is event marketing representative of the average blood glucose level in the last 2-3 month period. Performed By: #### U TOX2 #### [facility] CLIA [id number] [address] [id number] [facility] HbA1c (Bld) [Mass fraction] 5.3 % Normal 4.3-5.6 [facility] Comment on above: Order Comment: Speci men Type: URINE SPECIMEN Ordering Facility: External Submitter Address: , , Result Comment: [place] Diabetes Association guidelines indicate that patients with HgbA1c in the range 5.7-6.4% are at increased risk for development of diabetes, and intervention by lifestyle modification may be beneficial. HgbA1c greater or equal to 6.5% is considered diagnostic of diabetes. Performed By: #### U TOX2 #### [facility] CLIA [id number] [address] [place] [address] [facility] TSH SerPl-aCncon 11-06-2023 TSH Qn 1.820 m[IU]/L Normal 0.270-4.20 0 [facility] Comment on above: Order Comment: Speci men Type: BLOOD SPECIMEN Ordering Facility: [facility] Address: [address] [address] Performed By: #### 2 4323-8, 3 #### [facility] CLIA [id number] [address] [place] [address] [facility] LUNG DIFFUSION CAPACITY (EM O)on 06-16-2023 DLCO (ml/min/mmHg) 13.12 ml/min/mmHg [facility] DLCO/VA (ml/min/mmHg/L) 5.52 ml/min/mmHg/L [facility] HEX01-46% PRE (L/S) 0.66 L/S [facility] FEV1 PRE (L) 0.90 L [facility] FEV1/FVC PRE (%) 76 % [facility] FVC PRE (L) 1.19 L [facility] PEF PRE (L/S) 2.58 L/S [facility] VA (L) 2.40 L [facility] SPIROMETRY WITH DILATOR IF O BSTRUCTEDon 06-16-2023 [facility] Absolute lymphocyte countOrd ered By: Dr. Giron on 11-21-2022 Lymphocytes Auto (Unsp spec) [#/Vol] 2.24 10*3/uL 0.83-4.51 [facility] Automated blood hematocrit ( percentage)Ordered By: Dr. Giron on 11-21-2022 Hematocrit (Bld) [Volume fraction] 52.2 % 37-47 [facility] Basophil percentageOrdered B y: Dr. Giron on 11-21-2022 Basophils/100 WBC (Bld) 0.6 % 0-1 [facility] Eosinophils/100 WBC (Bld) 0.9 % 0-5 [facility] Neutrophils (Bld) [#/Vol] 7.6 10*3/uL 2.0-7.7 [facility] Neutrophils/100 WBC (Bld) 69.9 % 47-70 [facility] WBC (Bld) [#/Vol] 10.8 10*3/uL 4.4-11.0 [facility] Blood erythrocytes count (nu mber/volume)Ordered By: Dr. Giron on 11-21-2022 RBC (Bld) [#/Vol] 5.25 10*6/uL 4.2-5.4 [facility] Blood hemoglobin measurement (mass/volume)Ordered By: Dr. Giron on 11-21-2022 Hemoglobin (Bld) [Mass/Vol] 16.4 g/dL 12.0-15.0 [facility] Blood lymphocytes/100 leukoc ytesOrdered By: Dr. Giron on 11-21-2022 Lymphocytes/100 WBC (Bld) 20.7 % 19-41 [facility] Blood monocytes/100 leukocyt esOrdered By: Dr. Giron on 11-21-2022 Monocytes/100 WBC (Bld) 7.5 % 0-10 [facility] Blood platelet mean volumeOr dered By: Dr. Giron on 11-21-2022 Platelet mean volume (Bld) [Entitic vol] 10.7 fL 6.2-12.0 [facility] CBC W Auto Differential pane l (Bld)on 11-21-2022 C REACTIVE PROTEIN, HIGH SENSITIVITY, CSF 10.90 [facility] Erythrocyte distribution width (RBC) [Ratio] 13.3 % 11.5 - 14.5 % [facility] Immature Gran % 0.400 % [facility] MCH 31.2 pG 27 - 34 pG [facility] MCHC 31.4 % Abnormal 32 - 36 % [facility] MPV 10.7 % 7.3 - 11.1 % [facility] RDW-SD 49.8 [facility] SED RATE BY MODIFIED WESTEGREN MANUAL 5 [facility] Determination of erythrocyte mean corpuscular volume (MCV)Ordered By: Dr. Giron on 11-21-2022 MCV (RBC) [Entitic vol] 99.4 fL 81-99 [facility] Erythrocyte sedimentation ra teOrdered By: Dr. Giron on 11-21-2022 ESR (Bld) [Velocity] 5 mm/h 0-30 [facility] Laboratory - Hematology and Cell countsOrdered By: Dr. Giron on 11-21-2022 Erythrocyte distribution width (RBC) [Entitic vol] 49.8 fL 35.1-43.9 [facility] Erythrocyte distribution width (RBC) [Ratio] 13.5 % 11.6-14.6 [facility] Immature granulocytes/100 WBC (Bld) 0.400 % 0.0-0.9 [facility] Comment on above: IG% - Immature Granu locytes (promyelocytes, myelocytes and metamyelocytes) > 1% indicates that a LEFT SHIFT is Present. MCH (RBC) [Entitic mass] 31.2 pg 27.0-32.0 [facility] Nucleated RBC/100 WBC (Bld) [Ratio] 0 % 0-5 [facility] MCHC Auto (RBC) [Mass/Vol]Or dered By: Dr. Giron on 11-21-2022 MCHC (RBC) [Mass/Vol] 31.4 g/dL 32-36 [facility] Platelets bldOrdered By: Dr. Giron on 11-21-2022 Platelets (Bld) [#/Vol] 256 10*3/uL 150-450 [facility] Serum or plasma C reactive p rotein measurement (mass/volume)Ordered By: Dr. Giron on 11-21-2022 CRP [Mass/Vol] 10.90 mg/L 0.0-3.0 [facility] Comment on above: C-Reactive Protein ( CRP) provides useful information for thediagnosis, therapy and monitoring of inflammatory processesand associated diseases. For the evaluation of Relative Riskfor Cardiovascular Disease, a High Sensitivity CRP (HSCRP)should be ordered. RF videography Hypopharynx a nd Esophagus Views for swallowing function W speech and W barium contrast Sheri 11-16-2022 No vocal cord penetration or airway aspiration. Please refer to the speech pathologist's report for additional comments and recommendations. Report Dictated on Electronically Signed By: Wilder Cameron Electronically Signed Date/Time: 11/16/2022 4:12 PM EDT [facility] [email or web address] Patient Name: LESLI [facility]NDEZ MS [facility] 1940 [id number] Exam Date/Time: 11/16/2022 13:44 Procedure: FL MODIFIED BARIUM WITH VIDEO AND SPEECH Ordering Provider: BAE SAMANTHA Reason For Exam: choking, dysphagia MODIFIED BARIUM SWALLOW (COOKIE SWALLOW) CLINICAL INDICATION: Dysphagia. COMPARISON: None. FLUOROSCOPY DOSE: Ka,r= 1019.0 mGy TECHNIQUE: The procedure was performed in conjunction with speech therapy. Barium mixtures of various consistencies were given under fluoroscopy with the patient in the sitting lateral position. FINDINGS: Preparatory phase and oral phases are unremarkable. Pharyngeal phase demonstrates flash coating of the back of the epiglottis. There is no vocal cord penetration or airway aspiration. [facility] [email or web address] Wilder Cameron MD - 11/16/2022 Patient Name: LESLI ROSALES : 1940 Exam Date/Time: 11/16/2022 13:44 Procedure: FL MODIFIED BARIUM WITH VIDEO AND SPEECH Ordering Provider: BAE SAMANTHA Reason For Exam: choking, dysphagia MODIFIED BARIUM SWALLOW (COOKIE SWALLOW) CLINICAL INDICATION: Dysphagia. COMPARISON: None. FLUOROSCOPY DOSE: Ka,r= 1019.0 mGy TECHNIQUE: The procedure was performed in conjunction with speech therapy. Barium mixtures of various consistencies were given under fluoroscopy with the patient in the sitting lateral position. FINDINGS: Preparatory phase and oral phases are unremarkable. Pharyngeal phase demonstrates flash coating of the back of the epiglottis. There is no vocal cord penetration or airway aspiration. IMPRESSION: No vocal cord penetration or airway aspiration. Please refer to the speech pathologist's report for additional comments and recommendations. Report Dictated on Electronically Signed By: Wilder Cameron Electronically Signed Date/Time: 11/16/2022 4:12 PM EDT [facility] Study observation (narrative) [facility] RF videography Hypopharynx a nd Esophagus Views for swallowing function W speech and W barium contrast POOrdered By: Wilder Cameron on 11-16-2022 [facility] Work Phone: RF Esophagus Views W barium contrast Sheri 10-14-2022 Impression: Grossly unremarkable exam. Report Dictated on Electronically Signed By: Reina Mcdonald Electronically Signed Date/Time: 10/14/2022 10:44 AM [facility] Patient Name: LESLI HERNANDEZ MS : 1940 Exam Date/Time: 10/14/2022 09:45 Procedure: FL ESOPHAGUS BARIUM SWALLOW Ordering Provider: MADRIGAL ERICA Reason For Exam: DYSPHAGIA Examination: Esophagram (double contrast) Indication: Dysphagia, food getting stuck in upper esophagus Findings: Multiple spot radiographs of the esophagus were [...] is noted. Shoulder arthroplasty is also present. [facility] Reina Mcdonald MD - 10/14/2022 Patient Name: LESLI ROSALES : 1940 [id number] Exam Date/Time: 10/14/2022 09:45 Procedure: FL ESOPHAGUS BARIUM SWALLOW Ordering Provider: MADRIGAL ERICA Reason For Exam: DYSPHAGIA Examination: Esophagram (double contrast) Indication: Dysphagia, food getting stuck in upper esophagus Findings: Multiple spot radiographs of the esophagus were [...] is noted. Shoulder arthroplasty is also present. IMPRESSION: Impression: Grossly unremarkable exam. Report Dictated on Electronically Signed By: Reina Mcdonald Electronically Signed Date/Time: 10/14/2022 10:44 AM EST [facility] Study observation (narrative) [facility] RF Esophagus Views W barium contrast POOrdered By: Reina Mcdonald on 10-14-2022 [facility] Work Phone: Laboratory - Drug toxicology on 06-08-2022 Amphetamines Ql (U) Negative <1000 ng/mL [facility] Work Phone: Benzodiazepines Ql (U) Negative < 200 ng/mL [facility] Work Phone: Cannabinoids Screen Ql (U) Negative < 50 ng/mL [facility] Work Phone: [phone] Cocaine Ql (U) Negative < 300 ng/mL [facility] Work Phone: [phone] Opiates Ql (U) Positive < 300 ng/mL [facility] Work Phone: No Panel Informationon 06-08 MDMA (Ecstasy) Screen Negative < 500 ng/mL [facility] Work Phone: [phone] Urine Barbiturates Screen Negative < 200 ng/mL [facility] Work Phone: [phone] Urine Drug Screen Comment [facility] Work Phone: Comment on above: CONFIRMATORY TESTING FOR ALL POSITIVE URINE DRUG SCREENRESULTS WILL ONLY BE SENT OUT UPON PHYSICIAN ORDER. VISTA Urine Drug Screen methods provide only preliminaryanalytical test results. A more specific alternate chemicalmethod must be used in order to obtain a confirmedanalytical result. Gas chromatography/mass spectrometery(GC/MS) is the preferred confirmatory method. Clinicalconsideration and professional judgement should be appliedto any drug of abuse test result, particularly whenpreliminary positive results are used. URINE TCA TESTING MUST BE ORDERED SEPARATELY. USE TESTMNEMONIC: [facility] Urine Methadone Screen Negative < 300 ng/mL [facility] Work Phone: Urine phencyclidine (PCP) de tectionon 06-08-2022 Phencyclidine Ql (U) Negative < 25 ng/mL [facility] Work Phone: [phone] VL Venous Duplex US Lower Ex t Righton 04-26-2022 VL Venous Duplex US Lower Ext Right Patient Name: LESLI ROSALES Ultrasound ACCESSION EXAM DATE/TIME PROCEDURE ORDERING PROVIDER [id number] 04/26/2022 13:49 EDT VL Venous Duplex US MD WILBER, LEXI Lance Lower Ext Right CPT code 65934 Reason For Exam (VL Venous Duplex US Lower Ext Right) rt leg edema Report RIGHT LOWER EXTREMITY VENOUS DUPLEX ULTRASOUND CLINICAL HISTORY: rt leg edema Comparisons available: None FINDINGS: Grayscale and color Doppler sonographic images of the right lower extremity were obtained. There is no evidence of deep venous thrombus in the visualized portions of the right common femoral vein, superficial femoral vein, popliteal vein, or visualized veins of the upper calf. Respiratory variation and augmentation to calf pressure is noted. There is a complex fluid collection likely a Soliz's cyst posterior medial right leg measuring 5.7 x 2.1 x 1.1 cm. This exhibits some slight degree and septation. IMPRESSION: No evidence of deep venous thrombus in the evaluated veins of the right lower extremity from the inguinal ligaments to the upper calf. Small to moderate-sized complex Soliz's cyst. Report Dictated on Final Dictating Physician: MD HOLGUIN ANTHONY J Signed Date and Time: 04/26/2022 2:17 pm Signed by: MD HOLGUIN ANTHONY J Transcribed Date and Time: 04/26/2022 2:18 Cardiovascular ACCESSION EXAM DATE/TIME PROCEDURE [id number] 04/26/2022 13:49 EDT VL Venous Duplex US Lower Ext Right CPT code 81772 Reason For Exam (VL Venous Duplex US Lower Ext Right) rt leg edema Report RIGHT LOWER EXTREMITY VENOUS DUPLEX ULTRASOUND CLINICAL HISTORY: rt leg edema Comparisons available: None FINDINGS: Grayscale and color Doppler sonographic images of the right lower extremity were obtained. There is no evidence of deep venous thrombus in the visualized portions of the right common femoral vein, superficial femoral vein, popliteal vein, or visualized veins of the upper calf. Respiratory variation and augmentation to calf pressure is noted. There is a complex fluid collection likely a Soliz's cyst posterior medial right leg measuring 5.7 x 2.1 x 1.1 cm. This exhibits some slight degree and septation. IMPRESSION: No evidence of deep venous thrombus in the evaluated veins of the right lower extremity from the inguinal ligaments to the upper calf. Small to moderate-sized complex Soliz's cyst. Report Dictated on Final Dictating Physician: MD HOLGUIN ANTHONY J Signed Date and Time: 04/26/2022 2:17 pm Signed by: MD HOLGUIN ANTHONY J Transcribed Date and Time: 04/26/2022 2:18 Normal [facility] CR Knee Complete 4+ Views Roldan blanco 04-20-2022 CR Knee Complete 4+ Views Right Patient Name: LESLI ROSALES Diagnostic Radiology ACCESSION EXAM DATE/TIME PROCEDURE ORDERING PROVIDER [id number] 04/20/2022 12:36 EDT CR Knee Complete 4+ MD WILBER, LEXI H Views Right CPT code 78169 Reason For Exam (CR Knee Complete 4+ Views Right) m25.561 Report EXAMINATION: CR Knee Complete 4+ Views Right HISTORY: Right knee pain. m25.561. TECHNIQUE: CR Knee Complete 4+ Views Right COMPARISON: 09/23/2017 FINDINGS: Right knee, four views. No acute fracture or malalignment. No aggressive osseous lesion is identified. No significant erosive changes. Mild to moderate degenerative changes of the right knee are noted with tricompartmental marginal osteophyte formation and joint space narrowing involving patellofemoral compartment. Osteophytes are seen projecting from the tibial spine similar to the prior. Chondrocalcinosis is suggested involving the medial/lateral femorotibial joint spaces. A moderate-sized enthesophyte is noted along the quadriceps insertion on the superior patella. No sizable joint effusion. Prominent atherosclerotic vascular calcifications are noted. No radiopaque foreign body. IMPRESSION: Mild to moderate degenerative changes of the right knee. Report Dictated on Final Dictating Physician: MD AMBROSIO RYAN Signed Date and Time: 04/22/2022 1:03 pm Signed by: MD AMBROSIO RYAN Transcribed Date and Time: 04/22/2022 1:04 Normal [facility] Absolute lymphocyte counton 02-28-2022 Lymphocytes Auto (Unsp spec) [#/Vol] 2.10 10*3/uL 0.83-4.51 [facility] Work Phone: Basophil percentageon 2021 Basophils/100 WBC (Bld) 0.7 % 0-1 [facility] Work Phone: Eosinophils/100 WBC (Bld) 1.4 % 0-5 [facility] Work Phone: Neutrophils (Bld) [#/Vol] 7.2 10*3/uL 2.0-7.7 [facility] Work Phone: [phone] Neutrophils/100 WBC (Bld) 70.4 % 47-70 [facility] Work Phone: [phone] WBC (Bld) [#/Vol] 10.3 10*3/uL 4.4-11.0 [facility] Work Phone: Blood erythrocytes count (nu mber/volume)on 02-28-2022 RBC (Bld) [#/Vol] 4.74 10*6/uL 4.2-5.4 [facility] Work Phone: Blood hemoglobin measurement (mass/volume)on 02-28-2022 Hemoglobin (Bld) [Mass/Vol] 15.5 g/dL 12.0-15.0 [facility] Work Phone: [phone] Blood lymphocytes/100 leukoc yteson 02-28-2022 Lymphocytes/100 WBC (Bld) 20.5 % 19-41 [facility] Work Phone: [phone] Blood monocytes/100 leukocyt eson 02-28-2022 Monocytes/100 WBC (Bld) 6.4 % 0-10 [facility] Work Phone: [phone] Blood platelet mean volumeon 02-28-2022 Platelet mean volume (Bld) [Entitic vol] 10.9 fL 6.2-12.0 [facility] Work Phone: [phone] Determination of erythrocyte mean corpuscular volume (MCV)on 02-28-2022 MCV (RBC) [Entitic vol] 103.2 fL 81-99 [facility] Work Phone: Erythrocyte sedimentation ra finn 02-28-2022 ESR (Bld) [Velocity] 21 mm/h 0-30 [facility] Work Phone: Hematocrit Auto (Bld) [Volum e fraction]on 02-28-2022 Hematocrit (Bld) [Volume fraction] 48.9 % 37-47 [facility] Work Phone: Laboratory - Hematology and Cell countson 02-28-2022 Erythrocyte distribution width (RBC) [Entitic vol] 55.6 fL 35.1-43.9 [facility] Work Phone: [phone] Erythrocyte distribution width (RBC) [Ratio] 14.6 % 11.6-14.6 [facility] Work Phone: [phone] Immature granulocytes/100 WBC (Bld) 0.600 % 0.0-0.9 [facility] Work Phone: [phone] Comment on above: IG% - Immature Granu locytes (promyelocytes, myelocytes and metamyelocytes) > 1% indicates that a LEFT SHIFT is Present. MCH (RBC) [Entitic mass] 32.7 pg 27.0-32.0 [facility] Work Phone: Nucleated RBC/100 WBC (Bld) [Ratio] 0 % 0-5 [facility] Work Phone: [phone] MCHC Auto (RBC) [Mass/Vol]on 02-28-2022 MCHC (RBC) [Mass/Vol] 31.7 g/dL 32-36 [facility] Work Phone: [phone] Platelets bldon 02-28-2022 Platelets (Bld) [#/Vol] 268 10*3/uL 150-450 [facility] Work Phone: Serum or plasma C reactive p rotein measurement (mass/volume)on 02-28-2022 CRP [Mass/Vol] 12.60 mg/L 0.0-3.0 [facility] Work Phone: Comment on above: C-Reactive Protein ( CRP) provides useful information for thediagnosis, therapy and monitoring of inflammatory processesand associated diseases. For the evaluation of Relative Riskfor Cardiovascular Disease, a High Sensitivity CRP (HSCRP)should be ordered. CT HEAD W WO CONTRASTon 01-20 Patient Name: LESLI HERNANDEZ MS Computed Tomography ACCESSION EXAM DATE/TIME PROCEDURE ORDERING PROVIDER [id number] 02/09/2022 10:[address] Head or Brain w/ + w/ MD WILBER, LEXI Barnes CPT code 60991 Q9967 Reason For Exam (CT Head or Brain w/ + w/o Contrast) dizziness Report HEAD CT WITHOUT AND WITH IV CONTRAST History: Dizziness, fall injury, then is soft tissue COMPARISON: 09/23/2017 Technique: Multislice volume acquisition axial CT sections were obtained from the base to the vertex of the brain without and with IV injection of 75 mL of Isovue. Multiplanar sagittal and coronal reconstructed images also obtained. Findings: There is mild to moderate brain atrophy with prominent CSF space, most pronounced in the bilateral frontal region, not significantly changed from last exam. The ventricles are within normal limits in size for age. There are mild periventricular hypodensities suggesting chronic ischemic white matter changes. There is no intracranial hemorrhage, enhanced brain lesions, masses, or midline shift of the brain. There are carotid siphons calcifications. The paranasal sinuses are not completely included but the visualized portion and the bilateral mastoid air cells are clear. There is partial visualization of possibly impacted left upper molar tooth. IMPRESSION: Brain atrophy with chronic ischemic white matter changes. No acute intracranial process. Report Dictated on --- Final --- Dictating Physician: MD MARTIN AHMAD Signed Date and Time: 02/09/2022 11:02 am Signed by: MD MARTIN AHMAD Transcribed Date and Time: 02/09/2022 11:03 [facility] Stuart Martin MD - 02/09/2022 [id number] ACCESSION EXAM DATE/TIME PROCEDURE ORDERING PROVIDER [id number] 02/09/2022 10:[address] Head or Brain w/ + w/ MD MERINO RICHARD H o Contrast CPT code 92245 Q9967 Reason For Exam (CT Head or Brain w/ + w/o Contrast) dizziness Report HEAD CT WITHOUT AND WITH IV CONTRAST History: Dizziness, fall injury, then is soft tissue COMPARISON: 09/23/2017 Technique: Multislice volume acquisition axial CT sections were obtained from the base to the vertex of the brain without and with IV injection of 75 mL of Isovue. Multiplanar sagittal and coronal reconstructed images also obtained. Findings: There is mild to moderate brain atrophy with prominent CSF space, most pronounced in the bilateral frontal region, not significantly changed from last exam. The ventricles are within normal limits in size for age. There are mild periventricular hypodensities suggesting chronic ischemic white matter changes. There is no intracranial hemorrhage, enhanced brain lesions, masses, or midline shift of the brain. There are carotid siphons calcifications. The paranasal sinuses are not completely included but the visualized portion and the bilateral mastoid air cells are clear. There is partial visualization of possibly impacted left upper molar tooth. IMPRESSION: Brain atrophy with chronic ischemic white matter changes. No acute intracranial process. Report Dictated on --- Final --- Dictating Physician: MD MARTIN AHMAD Signed Date and Time: 02/09/2022 11:02 am Signed by: MD MARTIN AHMAD Transcribed Date and Time: 02/09/2022 11:03 [facility] Work Phone: Radiology Study observation (narrative) [facility] Work Phone: CT HEAD W WO CONTRASTOrdered By: Stuart Martin on 02-09-2022 [facility] Work Phone: CT Head or Brain w/ + w/o Co ntraston 02-09-2022 CT Head or Brain w/ + w/o Contrast [facility]: [id number] Comput[facility] Tomography ACCESSION EXAM DATE/TIME PROCEDURE ORDERING PROVIDER [id number] 02/09/2022 10:[address] Head or Brain w/ + w/ MD WILBER, LEXI Lance o Contrast CPT code 64091 Q9967 Reason For Exam (CT Head or Brain w/ + w/o Contrast) dizziness Report HEAD CT WITHOUT AND WITH IV CONTRAST History: Dizziness, fall injury, then is soft tissue COMPARISON: 09/23/2017 Technique: Multislice volume acquisition axial CT sections were obtained from the base to the vertex of the brain without and with IV injection of 75 mL of Isovue. Multiplanar sagittal and coronal reconstructed images also obtained. Findings: There is mild to moderate brain atrophy with prominent CSF space, most pronounced in the bilateral frontal region, not significantly changed from last exam. The ventricles are within normal limits in size for age. There are mild periventricular hypodensities suggesting chronic ischemic white matter changes. There is no intracranial hemorrhage, enhanced brain lesions, masses, or midline shift of the brain. There are carotid siphons calcifications. The paranasal sinuses are not completely included but the visualized portion and the bilateral mastoid air cells are clear. There is partial visualization of possibly impacted left upper molar tooth. IMPRESSION: Brain atrophy with chronic ischemic white matter changes. No acute intracranial process. Report Dictated on Final Dictating Physician: MD MARTIN AHMAD Signed Date and Time: 02/09/2022 11:02 am Signed by: MD MARTIN AHMAD Transcribed Date and Time: 02/09/2022 11:03 Normal [facility] Creatinineon 02-09-2022 Creatinine [Mass/Vol] 0.53 mg/dL Normal 0.52-1.25 [facility] Comment on above: Performed By: #### C RTN3 #### [facility] [address] [place] [address] GFR/1.73 sq M.predicted among blacks MDRD (S/P/Bld) [Vol rate/Area] mL/min/{1.73_m2} Normal >60 [facility] Comment on above: Performed By: #### C RTN3 #### [facility] [address] [place] [address] GFR/1.73 sq M.predicted among non-blacks MDRD (S/P/Bld) [Vol rate/Area] 89.1 mL/min/{1.73_m2} Normal >60 [facility] Comment on above: Result Comment: KDIG O guidelines provide the following GFR categories: Stage GFR(ml/min/1.73 m2) Terms G1 >=90 Normal or high G2 60-89 Mildly decreased* G3a 45-59 Mildly to moderately decreased G3b 30-44 Moderately to severely decreased G4 15-29 Severely decreased G5 <15 Kidney failure *Relative to young adult level. In the absence of evidence of kidney damage, neither GFR category G1 nor G2 fulfill the criteria for CKD. The CKD-EPI equation is validated in individuals 18 years of age and older. Currently the best equation for estimating glomerular filtration rate (GFR) from serum creatinine in children is the Bedside Ambrosio equation. It is less accurate in patients with extremes of muscle mass, restriction of dietary protein, ingestion of creatine, extra-renal metabolism of creatinine, or treatment with medications that affect renal tubular creatinine secretion. Performed By: #### C RTN3 #### [facility] [address] [place] [id number] Creatinine [Mass/Vol] 0.53 mg/dL 0.52 - 1.25 mg/dL [facility] EGFR IF NonAfrican Bhutanese 89.1 mL/min >60 [facility] Comment on above: KDIGO guidelines pro vide the following GFR categories: Stage GFR(ml/min/1.73 m2) Terms G1 >=90 Normal or high G2 60-89 Mildly decreased* G3a 45-59 Mildly to moderately decreased G3b 30-44 Moderately to severely decreased G4 15-29 Severely decreased G5 <15 Kidney failure *Relative to young adult level. In the absence of evidence of kidney damage, neither GFR category G1 nor G2 fulfill the criteria for CKD. The CKD-EPI equation is validated in individuals 18 years of age and older. Currently the best equation for estimating glomerular filtration rate (GFR) from serum creatinine in children is the Bedside Ambrosio equation. It is less accurate in patients with extremes of muscle mass, restriction of dietary protein, ingestion of creatine, extra-renal metabolism of creatinine, or treatment with medications that affect renal tubular creatinine secretion. GFR/1.73 sq M.predicted among blacks MDRD (S/P/Bld) [Vol rate/Area] mL/min/{1.73_m2} >60 mL/min [facility] Test Performed by [facility], [address] , [place], [place] [id number] [place] [address] LAB [facility] CT Up Ext w/o Contrast Right on 02-01-2022 CT Up Ext w/o Contrast Right Patient Name: LESLI ROSALES Computed Tomography ACCESSION EXAM DATE/TIME PROCEDURE ORDERING PROVIDER [id number] 02/01/2022 11:[address] Up Ext w/o Contrast MARY JANEMD LEON STEVEN ALAN Right CPT code 50476 Reason For Exam (CT Up Ext w/o Contrast Right) PAIN IN RIGHT SHOULDER Report Examination: CT right upper extremity without contrast Technique: 1 mm axial images were obtained through the right upper extremity without intravenous contrast. Sagittal and coronal reformatted images were reviewed. Clinical Indication: Pain Comparison: None Findings: Status post reverse shoulder arthroplasty. No evidence of periprosthetic lucency to suggest loosening. Possible healed fracture deformity of the proximal humerus. No acute periprosthetic fracture identified. The glenosphere is in satisfactory position relative to the humeral component on this exam. Within the limitations of CT, no evidence of a joint effusion. The acromioclavicular joint is intact. Right upper lobe pulmonary granuloma. Otherwise the visualized lung is clear. No visualized lymphadenopathy. Impression: Possible healed fracture deformity of the proximal humerus, however no immediate postoperative radiographs are available for comparison. Otherwise normal CT appearance of the reverse shoulder arthroplasty. Report Dictated on Final Dictating Physician: MD LITTLE JASON Signed Date and Time: 02/01/2022 12:58 pm Signed by: MD LITTLE JASON Transcribed Date and Time: 02/01/2022 12:59 Normal [facility] CT Upper Extremity Right WO Contraston 02-01-2022 Patient Name: LESLI HERNANDEZ MS Computed Tomography ACCESSION EXAM DATE/TIME PROCEDURE ORDERING PROVIDER [id number] 02/01/2022 11:[address] Up Ext w/o Contrast MD GIRON STEVEN ALAN Right CPT code 35546 Reason For Exam (CT Up Ext w/o Contrast Right) PAIN IN RIGHT SHOULDER Report Examination: CT right upper extremity without contrast Technique: 1 mm axial images were obtained through the right upper extremity without intravenous contrast. Sagittal and coronal reformatted images were reviewed. Clinical Indication: Pain Comparison: None Findings: Status post reverse shoulder arthroplasty. No evidence of periprosthetic lucency to suggest loosening. Possible healed fracture deformity of the proximal humerus. No acute periprosthetic fracture identified. The glenosphere is in satisfactory position relative to the humeral component on this exam. Within the limitations of CT, no evidence of a joint effusion. The acromioclavicular joint is intact. Right upper lobe pulmonary granuloma. Otherwise the visualized lung is clear. No visualized lymphadenopathy. Impression: Possible healed fracture deformity of the proximal humerus, however no immediate postoperative radiographs are available for comparison. Otherwise normal CT appearance of the reverse shoulder arthroplasty. Report Dictated on --- Final --- Dictating Physician: MD LITTLE JASON Signed Date and Time: 02/01/2022 12:58 pm Signed by: MD LITTLE JASON Transcribed Date and Time: 02/01/2022 12:59 [facility] Steffen Little MD - 02/01/2022 Patient Name: LESLI ROSALES Computed Tomography ACCESSION EXAM DATE/TIME PROCEDURE ORDERING PROVIDER [id number] 02/01/2022 11:[address] Up Ext w/o Contrast MD MARY JANE, MALCOM BARTLETT Right CPT code 88628 Reason For Exam (CT Up Ext w/o Contrast Right) PAIN IN RIGHT SHOULDER Report Examination: CT right upper extremity without contrast Technique: 1 mm axial images were obtained through the right upper extremity without intravenous contrast. Sagittal and coronal reformatted images were reviewed. Clinical Indication: Pain Comparison: None Findings: Status post reverse shoulder arthroplasty. No evidence of periprosthetic lucency to suggest loosening. Possible healed fracture deformity of the proximal humerus. No acute periprosthetic fracture identified. The glenosphere is in satisfactory position relative to the humeral component on this exam. Within the limitations of CT, no evidence of a joint effusion. The acromioclavicular joint is intact. Right upper lobe pulmonary granuloma. Otherwise the visualized lung is clear. No visualized lymphadenopathy. Impression: Possible healed fracture deformity of the proximal humerus, however no immediate postoperative radiographs are available for comparison. Otherwise normal CT appearance of the reverse shoulder arthroplasty. Report Dictated on --- Final --- Dictating Physician: MD LITTLE JASON Signed Date and Time: 02/01/2022 12:58 pm Signed by: MD LITTLE JASON Transcribed Date and Time: 02/01/2022 12:59 [facility] Work Phone: Radiology Study observation (narrative) [facility] Work Phone: CT Upper Extremity Right WO ContrastOrdered By: Steffen Little on 02-01-2022 [employer] Work Phone: Gram stain for investigation of transfusion reactionon 12-23-2021 Microscopic observation Gram stain Nom (Unsp spec) [facility] Work Phone: .Auto Diffon 11-06-2021 Basophil, Absolute 0.00 10 3/mcL Normal 0.00-0.19 [facility] ([place]) Comment on above: Performed By: #### C BC, ADIFF, ANEU, ANSG, ABOG, ALB #### [address] [address] Basophils/100 WBC (Bld) 0.1 % Normal 0.0-2.5 [facility] ([place]) Comment on above: Performed By: #### C BC, ADIFF, ANEU, ANSG, ABOG, ALB #### [address] [address] Eosinophil, Absolute 0.00 10 3/mcL Normal 0.00-0.40 A [facility] ([place]) Comment on above: Performed By: #### C BC, ADIFF, ANEU, ANSG, ABOG, ALB #### [address] [address] Eosinophils/100 WBC (Bld) 0.0 % Normal 0.0-7.0 [facility] ([place]) Comment on above: Performed By: #### C BC, ADIFF, ANEU, ANSG, ABOG, ALB #### [address] [address] Lymphocyte, Absolute 1.10 10 3/mcL Normal 0.77-3.85 A [facility] ([place]) Comment on above: Performed By: #### C BC, ADIFF, ANEU, ANSG, ABOG, ALB #### [address] [address] Lymphocytes/100 WBC (Bld) 7.0 % Low 10.0-50.0 [facility] ([place]) Comment on above: Performed By: #### C BC, ADIFF, ANEU, ANSG, ABOG, ALB #### [address] [address] Monocyte, Absolute 1.30 10 3/mcL High 0.15-1.00 [facility] ([place]) Comment on above: Performed By: #### C BC, ADIFF, ANEU, ANSG, ABOG, ALB #### [address] [address] Monocytes/100 WBC (Bld) 8.1 % Normal 1.7-13.0 [facility] ([place]) Comment on above: Performed By: #### C BC, ADIFF, ANEU, ANSG, ABOG, ALB #### [address] [address] Neutrophils/100 WBC (Bld) 84.8 % High 37.0-80.0 [facility] ([place]) Comment on above: Performed By: #### C BC, ADIFF, ANEU, ANSG, ABOG, ALB #### [address] [address] .GFRon 11-06-2021 GFR 76 ml/min/1.73sqm Normal [facility] ([place]) Comment on above: Result Comment: GFR Population mean for , Non- Americans Ages 20-29 = 116 mL/min/1.73 sq.m. Ages 30-39 = 107 mL/min/1.73 sq.m. Ages 40-49 = 99 mL/min/1.73 sq.m. Ages 50-59 = 93 mL/min/1.73 sq.m. Ages 60-69 = 85 mL/min/1.73 sq.m. Ages 70+ = 75 mL/min/1.73 sq.m. Chronic Kidney Disease: Less than 60 mL/min/1.73 square meters End Stage Renal Disease: Less than 15 mL/min/1.73 square meters Performed By: #### C BC, ADIFF, ANEU, ANSG, ABOG, ALB #### [address] [address] GFR Non- 63 ml/min/1.73sqm Normal [facility] ([place]) Comment on above: Result Comment: GFR Population mean for , Non- Americans Ages 20-29 = 116 mL/min/1.73 sq.m. Ages 30-39 = 107 mL/min/1.73 sq.m. Ages 40-49 = 99 mL/min/1.73 sq.m. Ages 50-59 = 93 mL/min/1.73 sq.m. Ages 60-69 = 85 mL/min/1.73 sq.m. Ages 70+ = 75 mL/min/1.73 sq.m. Chronic Kidney Disease: Less than 60 mL/min/1.73 square meters End Stage Renal Disease: Less than 15 mL/min/1.73 square meters Performed By: #### C BC, ADIFF, ANEU, ANSG, ABOG, ALB #### [address] [address] .NEUABSon 11-06-2021 Neutrophil, Absolute 13.50 10 3/mcL High 2.85-6.16 [facility] ([place]) Comment on above: Performed By: #### C BC, ADIFF, ANEU, ANSG, ABOG, ALB #### [address] [address] BMPon 11-06-2021 BUN/Creatinine Ratio 36 ratio High 7-27 [facility] ([place]) Comment on above: Performed By: #### C BC, ADIFF, ANEU, ANSG, ABOG, ALB #### [address] [address] Calcium [Mass/Vol] 8.4 mg/dL Normal 8.4-10.2 [facility] ([place]) Comment on above: Performed By: #### C BC, ADIFF, ANEU, ANSG, ABOG, ALB #### [address] [address] Chloride [Moles/Vol] 103 mmol/L Normal 98-107 [facility] ([place]) Comment on above: Performed By: #### C BC, ADIFF, ANEU, ANSG, ABOG, ALB #### [address] [address] CO2 [Moles/Vol] 32 mmol/L High 23-31 [facility] ([place]) Comment on above: Performed By: #### C BC, ADIFF, ANEU, ANSG, ABOG, ALB #### [address] [address] Creatinine [Mass/Vol] 0.87 mg/dL Normal 0.55-1.02 [facility] ([place]) Comment on above: Performed By: #### C BC, ADIFF, ANEU, ANSG, ABOG, ALB #### [address] [address] Electrolyte Balance 6.0 mEq/L Normal 4.0-15.0 [facility] ([place]) Comment on above: Performed By: #### C BC, ADIFF, ANEU, ANSG, ABOG, ALB #### [address] [address] Glucose [Mass/Vol] 144 mg/dL High 83-110 [facility] ([place]) Comment on above: Performed By: #### C BC, ADIFF, ANEU, ANSG, ABOG, ALB #### [address] [address] Potassium [Moles/Vol] 4.5 mmol/L Normal 3.5-5.1 [facility] ([place]) Comment on above: Performed By: #### C BC, ADIFF, ANEU, ANSG, ABOG, ALB #### [address] [address] Sodium [Moles/Vol] 141 mmol/L Normal 136-145 [facility] ([place]) Comment on above: Performed By: #### C BC, ADIFF, ANEU, ANSG, ABOG, ALB #### [address] [address] Urea nitrogen [Mass/Vol] 31 mg/dL High 7-18 [facility] ([place]) Comment on above: Performed By: #### C BC, ADIFF, ANEU, ANSG, ABOG, ALB #### [place] [id number] CBCon 11-06-2021 Erythrocyte distribution width (RBC) [Ratio] 15.6 % High 11.5-14.5 [facility] ([place]) Comment on above: Performed By: #### C BC, ADIFF, ANEU, ANSG, ABOG, ALB #### [place] [address] Hematocrit (Bld) [Volume fraction] 36.3 % Low 37.0-47.0 [facility] ([place]) Comment on above: Performed By: #### C BC, ADIFF, ANEU, ANSG, ABOG, ALB #### [place] [address] Hgb 11.9 G/dL Low 12.0-16.0 [facility] ([place]) Comment on above: Performed By: #### C BC, ADIFF, ANEU, ANSG, ABOG, ALB #### [place] [id number] MCH (RBC) [Entitic mass] 33.0 pg High 27.0-31.2 [facility] ([place]) Comment on above: Performed By: #### C BC, ADIFF, ANEU, ANSG, ABOG, ALB #### [place] [address] MCHC 32.8 G/dL Low 33.0-37.0 [facility] ([place]) Comment on above: Performed By: #### C BC, ADIFF, ANEU, ANSG, ABOG, ALB #### [place] [id number] MCV (RBC) [Entitic vol] 100.6 fL High 80.0-94.0 [facility] ([place]) Comment on above: Performed By: #### C BC, ADIFF, ANEU, ANSG, ABOG, ALB #### [place] [id number] Platelet 217 10 3/mcL Normal 130-400 [facility] ([place]) Comment on above: Performed By: #### C BC, ADIFF, ANEU, ANSG, ABOG, ALB #### [id number] [place], [place] [address] Platelet mean volume (Bld) [Entitic vol] 8.6 fL Normal 7.4-10.4 [facility] ([place]) Comment on above: Performed By: #### C BC, ADIFF, ANEU, ANSG, ABOG, ALB #### [id number] [place], [place] [address] RBC 3.61 10 6/mcL Low 4.20-5.40 [facility] ([place]) Comment on above: Performed By: #### C BC, ADIFF, ANEU, ANSG, ABOG, ALB #### [id number] [place], [place] [address] WBC 16.00 10 3/mcL High 4.60-10.80 [facility] ([place]) Comment on above: Performed By: #### C BC, ADIFF, ANEU, ANSG, ABOG, ALB #### [id number] [place], [place] [address] LABORATORYOrdered By: Angeline Garrison on 11-06-2021 Basophil, Absolute 0.00 103/mcL Invalid Interpretation Code 0.00 - 0.19 10^3/mcL AO Auto Heme SS Basophils/100 WBC (Bld) 0.1 % Invalid Interpretation Code 0.0 - 2.5 % AO Auto Heme SS Calcium [Mass/Vol] 8.4 mg/dL Invalid Interpretation Code 8.4 - 10.2 mg/dL AO ADM SS Chloride [Moles/Vol] 103 mmol/L Invalid Interpretation Code 98 - 107 mmol/L AO ADM SS CO2 [Moles/Vol] 32 mmol/L Invalid Interpretation Code 23 - 31 mmol/L AO ADM SS Creatinine [Mass/Vol] 0.87 mg/dL Invalid Interpretation Code 0.55 - 1.02 mg/dL AO ADM SS Electrolyte Balance 6.0 mEq/L Invalid Interpretation Code 4.0 - 15.0 mEq/L AO ADM SS Eosinophil, Absolute 0.00 103/mcL Invalid Interpretation Code 0.00 - 0.40 10^3/mcL AO Auto Heme SS Eosinophils/100 WBC (Bld) 0.0 % Invalid Interpretation Code 0.0 - 7.0 % AO Auto Heme SS Erythrocyte distribution width (RBC) [Ratio] 15.6 % Invalid Interpretation Code 11.5 - 14.5 % AO Auto Heme SS Glucose [Mass/Vol] 144 mg/dL Invalid Interpretation Code 83 - 110 mg/dL AO ADM SS Hematocrit (Bld) [Volume fraction] 36.3 % Invalid Interpretation Code 37.0 - 47.0 % AO Auto Heme SS Hemoglobin (Bld) [Mass/Vol] 11.9 G/dL Invalid Interpretation Code 12.0 - 16.0 G/dL AO Auto Heme SS Lymphocyte, Absolute 1.10 103/mcL Invalid Interpretation Code 0.77 - 3.85 10^3/mcL AO Auto Heme SS Lymphocytes/100 WBC (Bld) 7.0 % Invalid Interpretation Code 10.0 - 50.0 % AO Auto Heme SS MCH (RBC) [Entitic mass] 33.0 pg Invalid Interpretation Code 27.0 - 31.2 pg AO Auto Heme SS MCHC (RBC) [Mass/Vol] 32.8 G/dL Invalid Interpretation Code 33.0 - 37.0 G/dL AO Auto Heme SS MCV (RBC) [Entitic vol] 100.6 fL Invalid Interpretation Code 80.0 - 94.0 fL AO Auto Heme SS Monocyte, Absolute 1.30 103/mcL Invalid Interpretation Code 0.15 - 1.00 10^3/mcL AO Auto Heme SS Monocytes/100 WBC (Bld) 8.1 % Invalid Interpretation Code 1.7 - 13.0 % AO Auto Heme SS Neutrophil, Absolute 13.50 103/mcL Invalid Interpretation Code 2.85 - 6.16 10^3/mcL AO Auto Heme SS Neutrophils/100 WBC (Bld) 84.8 % Invalid Interpretation Code 37.0 - 80.0 % AO Auto Heme SS Platelet mean volume (Bld) [Entitic vol] 8.6 fL Invalid Interpretation Code 7.4 - 10.4 fL AO Auto Heme SS Platelets (Bld) [#/Vol] 217 103/mcL Invalid Interpretation Code 130 - 400 10^3/mcL AO Auto Heme SS Potassium [Moles/Vol] 4.5 mmol/L Invalid Interpretation Code 3.5 - 5.1 mmol/L AO ADM SS RBC (Bld) [#/Vol] 3.61 106/mcL Invalid Interpretation Code 4.20 - 5.40 10^6/mcL AO Auto Heme SS Sodium [Moles/Vol] 141 mmol/L Invalid Interpretation Code 136 - 145 mmol/L AO ADM SS Urea nitrogen [Mass/Vol] 31 mg/dL Invalid Interpretation Code 7 - 18 mg/dL AO ADM SS Urea nitrogen/Creatinine [Mass ratio] 36 ratio Invalid Interpretation Code 7 - 27 ratio AO ADM SS WBC (Bld) [#/Vol] 16.00 103/mcL Invalid Interpretation Code 4.60 - 10.80 10^3/mcL AO Auto Heme SS LABORATORYOrdered By: SYSTEM SYSTEM on 11-06-2021 GFR 76 ml/min/1.73sqm Invalid Interpretation Code AO Chemistry S GFR Non- 63 ml/min/1.73sqm Invalid Interpretation Code AO Chemistry S XR SHOULDER MINIMUM 2 VIEWS RIGHTon 11-05-2021 XR SHOULDER MINIMUM 2 VIEWS RIGHT ORIGINAL EXAMINATION: TWO XRAY VIEWS OF THE RIGHT SHOULDER 11/05/2021 3:21 pm COMPARISON: None. HISTORY: ORDERING SYSTEM PROVIDED HISTORY: Reason for Exam: Status Post Arthroplasty FINDINGS: Patient is status post reverse total shoulder arthroplasty. No visualized evidence of hardware complication. Soft tissue swelling is noted about the right shoulder, likely postoperative. No dislocation is evident. Osseous structures are diffusely decreased in mineralization. Mild to moderate acromioclavicular degenerative changes are seen. Normal coracoclavicular distance. Atelectatic changes are present of the right lung base. Diffuse interstitial prominence, nonspecific. IMPRESSION: 1. Reversed total shoulder arthroplasty changes without evidence of hardware complication. 2. Additional findings, as above. Interpreted by: Bob Verdin DO Preliminary Report By: Bob Verdin DO Electronically signed By Bob Verdin DO Dictated Date: 11/05/2021 3:26:58 PM Prelim Date: 11/05/2021 3:28:16 PM Sign Date: 11/05/2021 3:28:16 PM Ordering Provider: MALCOM Philip [facility] ([place]) Gel ABOon 11-02-2021 ABO/Rh Interp Positive Invalid Interpretation Code [facility] ([place]) Comment on above: Performed By: #### C BC, ADIFF, ANEU, ANSG, ABOG, ALB #### [address] [place], [place] [address] Gel ABSon 11-02-2021 Antibody Screen Gel Negative Normal [facility] ([place]) Comment on above: Performed By: #### A NSG, ABOG #### [address] [place], [place] [address] LABORATORYOrdered By: Onofre Guthrie on 11-02-2021 ABO/Rh Interp Positive Invalid Interpretation Code AO BB SS Antibody Screen Gel Negative ABSC (11/02/21 9:45 AM) Invalid Interpretation Code AO BB SS XR CHEST 1 VIEWon 11-02-2021 XR CHEST 1 VIEW ORIGINAL HISTORY: Short of breath COMPARISON: 03 September 2021 FINDINGS: There is a 15 mm nodule in the peripheral right lung. There is mild streaky airspace opacification in the lung bases and in the left apex. The pulmonary vasculature is unremarkable in appearance. IMPRESSION: Mild atelectasis and or consolidation, most prominently in the left apex. A right nodule is unchanged. Interpreted by: Franco Barros MD Preliminary Report By: Franco Barros MD Electronically signed By Franco Barros MD Dictated Date: 11/02/2021 1:38:13 PM Prelim Date: 11/02/2021 1:39:05 PM Sign Date: 11/02/2021 1:39:05 PM Ordering Provider: HOA KOHLI Normal [facility] ([place]) Absolute lymphocyte counton 10-26-2021 Lymphocytes Auto (Unsp spec) [#/Vol] 2.52 10*3/uL 0.83-4.51 [facility] Work Phone: Basophil percentageon 2021 Basophils/100 WBC (Bld) 0.6 % 0-1 [facility] Work Phone: Chloride [Moles/Vol] 103 mmol/L 98-107 [facility] Work Phone: Eosinophils/100 WBC (Bld) 1.9 % 0-5 [facility] Work Phone: Glucose [Mass/Vol] 97 mg/dL 74-106 [facility] Work Phone: Neutrophils (Bld) [#/Vol] 6.7 10*3/uL 2.0-7.7 [facility] Work Phone: Neutrophils/100 WBC (Bld) 66.8 % 47-70 [facility] Work Phone: Potassium [Moles/Vol] 3.8 mmol/L 3.5-5.1 [facility] Work Phone: Sodium [Moles/Vol] 141 mmol/L 136-[address] [facility] Work Phone: WBC (Bld) [#/Vol] 10.0 10*3/uL 4.4-11.0 [facility] Work Phone: Blood erythrocytes count (nu mber/volume)on 10-26-2021 RBC (Bld) [#/Vol] 4.81 10*6/uL 4.2-5.4 [facility] Work Phone: Blood hemoglobin measurement (mass/volume)on 10-26-2021 Hemoglobin (Bld) [Mass/Vol] 15.4 g/dL 12.0-15.0 [facility] Work Phone: Blood lymphocytes/100 leukoc yteson 10-26-2021 Lymphocytes/100 WBC (Bld) 25.1 % 19-41 [facility] Work Phone: Blood monocytes/100 leukocyt eson 10-26-2021 Monocytes/100 WBC (Bld) 5.3 % 0-10 [facility] Work Phone: Blood platelet mean volumeon 10-26-2021 Platelet mean volume (Bld) [Entitic vol] 10.8 fL 6.2-12.0 [facility] Work Phone: Determination of erythrocyte mean corpuscular volume (MCV)on 10-26-2021 MCV (RBC) [Entitic vol] 103.3 fL 81-99 [facility] Work Phone: Hematocrit Auto (Bld) [Volum e fraction]on 10-26-2021 Hematocrit (Bld) [Volume fraction] 49.7 % 37-47 [facility] Work Phone: [phone] Laboratory - Chemistry and C hemistry - challengeon 10-26-2021 CO2 [Moles/Vol] 34.0 mmol/L 21.0-32.0 [facility] Work Phone: [phone] Urea nitrogen/Creatinine [Mass ratio] 30.9 mg/mg 10-20 [facility] Work Phone: [phone] Laboratory - Hematology and Cell countson 10-26-2021 Erythrocyte distribution width (RBC) [Entitic vol] 55.3 fL 35.1-43.9 [facility] Work Phone: [phone] Erythrocyte distribution width (RBC) [Ratio] 14.5 % 11.6-14.6 [facility] Work Phone: [phone] Immature granulocytes/100 WBC (Bld) 0.300 % 0.0-0.9 [facility] Work Phone: [phone] Comment on above: IG% - Immature Granu locytes (promyelocytes, myelocytes and metamyelocytes) > 1% indicates that a LEFT SHIFT is Present. MCH (RBC) [Entitic mass] 32.0 pg 27.0-32.0 [facility] Work Phone: [phone] Nucleated RBC/100 WBC (Bld) [Ratio] 0 % 0-5 [facility] Work Phone: [phone] MCHC Auto (RBC) [Mass/Vol]on 10-26-2021 MCHC (RBC) [Mass/Vol] 31.0 g/dL 32-36 [facility] Work Phone: [phone] No Panel Informationon 10-26 Estimated GFR (MDRD) Amer 120 mL/min >60 [facility] Work Phone: [phone] Comment on above: GFR Calc Estimated GFR (MDRD) Non-Af Amer 99 mL/min >60 [facility] Work Phone: [phone] Comment on above: Non- GFR Calc Platelets bldon 10-26-2021 Platelets (Bld) [#/Vol] 253 10*3/uL 150-450 [facility] Work Phone: Serum or plasma albumin azael urement (mass/volume)on 10-26-2021 Albumin [Mass/Vol] 3.4 g/dL 3.2-5.0 [facility] Work Phone: Serum or plasma calcium azael urement (mass/volume)on 10-26-2021 Calcium [Mass/Vol] 9.5 mg/dL 8.5-10.1 [facility] Work Phone: Serum or plasma creatinine m easurement (mass/volume)on 10-26-2021 Creatinine [Mass/Vol] 0.61 mg/dL 0.55-1.02 [facility] Work Phone: Comment on above: The validity of the calculated GFR & GFRAA in patients over 70 years has not been determined. Clinical correlation is essential. Serum or plasma urea nitroge n measurement (mass/volume)on 10-26-2021 Urea nitrogen [Mass/Vol] 19 mg/dL 7-18 [facility] Work Phone: Thin prep Papanicolaou smear with manual screeningon 10-26-2021 Thin prep Papanicolaou smear with manual screening 4 5-15 [facility] Work Phone: .Auto Diffon 09-03-2021 Basophil, Absolute 0.10 10 3/mcL Normal 0.00-0.19 [facility] ([place]) Comment on above: Performed By: #### C BC, NATALIYAIFF, ANEU, ANSG, ABOG, ALB #### [address] [address] Basophils/100 WBC (Bld) 0.8 % Normal 0.0-2.5 [facility] ([place]) Comment on above: Performed By: #### C BC, ADIFF, ANEU, ANSG, ABOG, ALB #### [address] [address] Eosinophil, Absolute 0.20 10 3/mcL Normal 0.00-0.40 A [facility] ([place]) Comment on above: Performed By: #### C BC, ADIFF, ANEU, ANSG, ABOG, ALB #### [address] [address] Eosinophils/100 WBC (Bld) 2.3 % Normal 0.0-7.0 [facility] ([place]) Comment on above: Performed By: #### C BC, ADIFF, ANEU, ANSG, ABOG, ALB #### [address] [address] Lymphocyte, Absolute 1.90 10 3/mcL Normal 0.77-3.85 A [facility] ([place]) Comment on above: Performed By: #### C BC, ADIFF, ANEU, ANSG, ABOG, ALB #### [address] [address] Lymphocytes/100 WBC (Bld) 24.6 % Normal 10.0-50.0 [facility] ([place]) Comment on above: Performed By: #### C BC, ADIFF, ANEU, ANSG, ABOG, ALB #### [address] [address] Monocyte, Absolute 0.50 10 3/mcL Normal 0.15-1.00 [facility] ([place]) Comment on above: Performed By: #### C BC, ADIFF, ANEU, ANSG, ABOG, ALB #### [address] [address] Monocytes/100 WBC (Bld) 6.9 % Normal 1.7-13.0 [facility] ([place]) Comment on above: Performed By: #### C BC, ADIFF, ANEU, ANSG, ABOG, ALB #### [address] [address] Neutrophils/100 WBC (Bld) 65.4 % Normal 37.0-80.0 [facility] ([place]) Comment on above: Performed By: #### C BC, ADIFF, ANEU, ANSG, ABOG, ALB #### [address] [address] .GFRon 09-03-2021 GFR 147 ml/min/1.73sqm Normal [facility] ([place]) Comment on above: Result Comment: GFR Population mean for , Non- Americans Ages 20-29 = 116 mL/min/1.73 sq.m. Ages 30-39 = 107 mL/min/1.73 sq.m. Ages 40-49 = 99 mL/min/1.73 sq.m. Ages 50-59 = 93 mL/min/1.73 sq.m. Ages 60-69 = 85 mL/min/1.73 sq.m. Ages 70+ = 75 mL/min/1.73 sq.m. Chronic Kidney Disease: Less than 60 mL/min/1.73 square meters End Stage Renal Disease: Less than 15 mL/min/1.73 square meters Performed By: #### B MP, GFR #### [address] [address] GFR Non- 122 ml/min/1.73sqm Normal [facility] ([place]) Comment on above: Result Comment: GFR Population mean for , Non- Americans Ages 20-29 = 116 mL/min/1.73 sq.m. Ages 30-39 = 107 mL/min/1.73 sq.m. Ages 40-49 = 99 mL/min/1.73 sq.m. Ages 50-59 = 93 mL/min/1.73 sq.m. Ages 60-69 = 85 mL/min/1.73 sq.m. Ages 70+ = 75 mL/min/1.73 sq.m. Chronic Kidney Disease: Less than 60 mL/min/1.73 square meters End Stage Renal Disease: Less than 15 mL/min/1.73 square meters Performed By: #### B MP, GFR #### [address] [address] .NEUABSon 09-03-2021 Neutrophil, Absolute 5.00 10 3/mcL Normal 2.85-6.16 A [facility] ([place]) Comment on above: Performed By: #### C BC, ADIFF, ANEU, ANSG, ABOG, ALB #### [address] [address] ALBon 09-03-2021 Albumin Level 3.4 G/dL Normal 3.4-4.8 [facility] ([place]) Comment on above: Performed By: #### C BC, ADIFF, ANEU, ANSG, ABOG, ALB #### [address] [address] BMPon 09-03-2021 BUN/Creatinine Ratio 45 ratio High 7-27 [facility] ([place]) Comment on above: Performed By: #### B MP, GFR #### [address] [address] Calcium [Mass/Vol] 9.1 mg/dL Normal 8.4-10.2 [facility] ([place]) Comment on above: Performed By: #### B MP, GFR #### [address] [address] Chloride [Moles/Vol] 105 mmol/L Normal 98-107 [facility] ([place]) Comment on above: Performed By: #### B MP, GFR #### [address] [address] CO2 [Moles/Vol] 34 mmol/L High 23-31 [facility] ([place]) Comment on above: Performed By: #### B MP, GFR #### [address] [address] Creatinine [Mass/Vol] 0.49 mg/dL Low 0.55-1.02 [facility] ([place]) Comment on above: Performed By: #### B MP, GFR #### [address] [address] Electrolyte Balance 5.0 mEq/L Normal 4.0-15.0 [facility] ([place]) Comment on above: Performed By: #### B MP, GFR #### [address] [address] Glucose [Mass/Vol] 84 mg/dL Normal 83-110 [facility] ([place]) Comment on above: Performed By: #### B MP, GFR #### [address] [address] Potassium [Moles/Vol] 4.1 mmol/L Normal 3.5-5.1 [facility] ([place]) Comment on above: Performed By: #### B MP, GFR #### [address] [address] Sodium [Moles/Vol] 144 mmol/L Normal 136-145 [facility] ([place]) Comment on above: Performed By: #### B MP, GFR #### [address] [address] Urea nitrogen [Mass/Vol] 22 mg/dL High 7-18 [facility] ([place]) Comment on above: Performed By: #### B MP, GFR #### [address] [address] CBCon 09-03-2021 Erythrocyte distribution width (RBC) [Ratio] 14.4 % Normal 11.5-14.5 [facility] ([place]) Comment on above: Order Comment: Pre-A dmission Testing Performed By: #### C BC, ADIFF, ANEU, ANSG, ABOG, ALB #### [address] [address] Hematocrit (Bld) [Volume fraction] 46.8 % Normal 37.0-47.0 [facility] ([place]) Comment on above: Order Comment: Pre-A dmission Testing Performed By: #### C BC, ADIFF, ANEU, ANSG, ABOG, ALB #### [address] [address] Hgb 15.0 G/dL Normal 12.0-16.0 [facility] ([place]) Comment on above: Order Comment: Pre-A dmission Testing Performed By: #### C BC, ADIFF, ANEU, ANSG, ABOG, ALB #### [address] [address] MCH (RBC) [Entitic mass] 32.2 pg High 27.0-31.2 [facility] ([place]) Comment on above: Order Comment: Pre-A dmission Testing Performed By: #### C BC, ADIFF, ANEU, ANSG, ABOG, ALB #### [address] [address] MCHC 32.1 G/dL Low 33.0-37.0 [facility] ([place]) Comment on above: Order Comment: Pre-A dmission Testing Performed By: #### C BC, ADIFF, ANEU, ANSG, ABOG, ALB #### [address] [address] MCV (RBC) [Entitic vol] 100.5 fL High 80.0-94.0 [facility] ([place]) Comment on above: Order Comment: Pre-A dmission Testing Performed By: #### C BC, ADIFF, ANEU, ANSG, ABOG, ALB #### [address] [address] Platelet 248 10 3/mcL Normal 130-400 [facility] ([place]) Comment on above: Order Comment: Pre-A dmission Testing Performed By: #### C BC, ADIFF, ANEU, ANSG, ABOG, ALB #### [address] [address] Platelet mean volume (Bld) [Entitic vol] 8.8 fL Normal 7.4-10.4 [facility] ([place]) Comment on above: Order Comment: Pre-A dmission Testing Performed By: #### C BC, ADIFF, ANEU, ANSG, ABOG, ALB #### [address] [address] RBC 4.66 10 6/mcL Normal 4.20-5.40 [facility] ([place]) Comment on above: Order Comment: Pre-A dmission Testing Performed By: #### C BC, ADIFF, ANEU, ANSG, ABOG, ALB #### [address] [address] WBC 7.70 10 3/mcL Normal 4.60-10.80 [facility] ([place]) Comment on above: Order Comment: Pre-A dmission Testing Performed By: #### C BC, ADIFF, ANEU, ANSG, ABOG, ALB #### [address] [address] Gel ABOon 09-03-2021 ABO/Rh Interp Positive Invalid Interpretation Code [facility] ([place]) Comment on above: Performed By: #### C BC, ADIFF, ANEU, ANSG, ABOG, ALB #### [address] [place], [place] [address] Gel ABSon 09-03-2021 Antibody Screen Gel Negative Normal [facility] ([place]) Comment on above: Performed By: #### C BC, ADIFF, ANEU, ANSG, ABOG, ALB #### [address] [place], [place] [address] LABORATORYOrdered By: Dalia Natarajan on 09-03-2021 ABO/Rh Interp Positive Invalid Interpretation Code AO BB SS Antibody Screen Gel Negative ABSC (09/03/21 12:05 PM) Invalid Interpretation Code AO BB SS Basophil, Absolute 0.10 103/mcL Invalid Interpretation Code 0.00 - 0.19 10^3/mcL AO Auto Heme SS Basophils/100 WBC (Bld) 0.8 % Invalid Interpretation Code 0.0 - 2.5 % AO Auto Heme SS Eosinophil, Absolute 0.20 103/mcL Invalid Interpretation Code 0.00 - 0.40 10^3/mcL AO Auto Heme SS Eosinophils/100 WBC (Bld) 2.3 % Invalid Interpretation Code 0.0 - 7.0 % AO Auto Heme SS Erythrocyte distribution width (RBC) [Ratio] 14.4 % Invalid Interpretation Code 11.5 - 14.5 % AO Auto Heme SS Hematocrit (Bld) [Volume fraction] 46.8 % Invalid Interpretation Code 37.0 - 47.0 % AO Auto Heme SS Hemoglobin (Bld) [Mass/Vol] 15.0 G/dL Invalid Interpretation Code 12.0 - 16.0 G/dL AO Auto Heme SS Lymphocyte, Absolute 1.90 103/mcL Invalid Interpretation Code 0.77 - 3.85 10^3/mcL AO Auto Heme SS Lymphocytes/100 WBC (Bld) 24.6 % Invalid Interpretation Code 10.0 - 50.0 % AO Auto Heme SS MCH (RBC) [Entitic mass] 32.2 pg Invalid Interpretation Code 27.0 - 31.2 pg AO Auto Heme SS MCHC (RBC) [Mass/Vol] 32.1 G/dL Invalid Interpretation Code 33.0 - 37.0 G/dL AO Auto Heme SS MCV (RBC) [Entitic vol] 100.5 fL Invalid Interpretation Code 80.0 - 94.0 fL AO Auto Heme SS Monocyte, Absolute 0.50 103/mcL Invalid Interpretation Code 0.15 - 1.00 10^3/mcL AO Auto Heme SS Monocytes/100 WBC (Bld) 6.9 % Invalid Interpretation Code 1.7 - 13.0 % AO Auto Heme SS Neutrophil, Absolute 5.00 103/mcL Invalid Interpretation Code 2.85 - 6.16 10^3/mcL AO Auto Heme SS Neutrophils/100 WBC (Bld) 65.4 % Invalid Interpretation Code 37.0 - 80.0 % AO Auto Heme SS Platelet mean volume (Bld) [Entitic vol] 8.8 fL Invalid Interpretation Code 7.4 - 10.4 fL AO Auto Heme SS Platelets (Bld) [#/Vol] 248 103/mcL Invalid Interpretation Code 130 - 400 10^3/mcL AO Auto Heme SS RBC (Bld) [#/Vol] 4.66 106/mcL Invalid Interpretation Code 4.20 - 5.40 10^6/mcL AO Auto Heme SS WBC (Bld) [#/Vol] 7.70 103/mcL Invalid Interpretation Code 4.60 - 10.80 10^3/mcL AO Auto Heme SS LABORATORYOrdered By: Jannet Miller on 09-03-2021 Albumin BCP dye [Mass/Vol] 3.4 G/dL Invalid Interpretation Code 3.4 - 4.8 G/dL AO ADM SS LABORATORYOrdered By: Onofre Guthrie on 09-03-2021 Calcium [Mass/Vol] 9.1 mg/dL Invalid Interpretation Code 8.4 - 10.2 mg/dL AO ADM SS Chloride [Moles/Vol] 105 mmol/L Invalid Interpretation Code 98 - 107 mmol/L AO ADM SS CO2 [Moles/Vol] 34 mmol/L Invalid Interpretation Code 23 - 31 mmol/L AO ADM SS Creatinine [Mass/Vol] 0.49 mg/dL Invalid Interpretation Code 0.55 - 1.02 mg/dL AO ADM SS Electrolyte Balance 5.0 mEq/L Invalid Interpretation Code 4.0 - 15.0 mEq/L AO ADM SS Glucose [Mass/Vol] 84 mg/dL Invalid Interpretation Code 83 - 110 mg/dL AO ADM SS Potassium [Moles/Vol] 4.1 mmol/L Invalid Interpretation Code 3.5 - 5.1 mmol/L AO ADM SS Sodium [Moles/Vol] 144 mmol/L Invalid Interpretation Code 136 - 145 mmol/L AO ADM SS Urea nitrogen [Mass/Vol] 22 mg/dL Invalid Interpretation Code 7 - 18 mg/dL AO ADM SS Urea nitrogen/Creatinine [Mass ratio] 45 ratio Invalid Interpretation Code 7 - 27 ratio AO ADM SS LABORATORYOrdered By: SYSTEM SYSTEM on 09-03-2021 GFR 147 ml/min/1.73sqm Invalid Interpretation Code AO Chemistry S GFR Non- 122 ml/min/1.73sqm Invalid Interpretation Code AO Chemistry S XR CHEST 2 VIEWSon 2 XR CHEST 2 VIEWS ORIGINAL EXAMINATION: TWO XRAY VIEWS OF THE CHEST 09/03/2021 12:24 pm COMPARISON: None. HISTORY: ORDERING SYSTEM PROVIDED HISTORY: Reason for Exam: Pre-admission testing FINDINGS: The heart is normal in size and there is no vascular congestion present. A nodular density at the right mid lung is unchanged compared to esophagram January 23, 2017, most compatible with a calcified granuloma. There is no focal consolidation present and there is no pleural fluid seen. There are degenerative changes noted in the spine. IMPRESSION: No acute abnormality. Interpreted by: Nieves Uribe MD Preliminary Report By: Nieves Uribe MD Electronically signed By Nieves Uribe MD Dictated Date: 09/03/2021 12:51:08 PM Prelim Date: 09/03/2021 12:54:24 PM Sign Date: 09/03/2021 12:54:24 PM Ordering Provider: MALCOM GIRON [facility] ([place]) [facility] 07-10-2021 [facility] HNO ID: [id number] Author: Jeanie Mackey RDMS Service: Radiology Author Type: Physical Therapy Assistant Type: Allied Health Filed: 07/10/2021 5:42 PM Note Text: Radiology Service Progress Note PATIENT NAME: Lesli Rosales DATE OF SERVICE: July 10, 2021 TIME: 5:42 PM PATIENT IDENTITY VERIFICATION COMPLETED USING TWO (2) IDENTIFIERS: Name and Date of confirmed by patient verbally and Name and Date of confirmed by identification band. FALL SCREENING: Has the patient had 2 falls in the last year or 1 fall with injury or currently using an Ambulatory Assistive Device (Walker, Cane, Wheelchair, Crutches, etc.)? Emergency Room Patient: Screened in ED PATIENT GENDER DATA: Female. status: : No status: NO. PATIENT RELEVANT IMPLANT DATA REVIEWED: Not Applicable RADIOLOGY DEPARTMENT: Ultrasound PERIPHERAL IV DATA: Not applicable SIGNED BY: Jeanie Mackey RDMS July 10, 2021 5:42 PM [facility] CT SHOULDER WO IVCON RTon CT SHOULDER WO IVCON RT * * *Final Report* * * DATE OF EXAM: Jul 10 2021 5:04PM [id number] SHOULDER WO IVCON RT / PROCEDURE REASON: Abn xray, shoulder * * * * Physician Interpretation * * * * Indication: Right shoulder pain after fall Comparison: No prior study is available for comparison Spiral CT scan of the right shoulder was performed with 2 mm axial reconstructions. Sagittal and coronal reformatted images are provided. CT Radiation dose: Integrated Dose-length product (DLP) for this visit = 248 mGy*cm. CT Dose Reduction Employed: Automated exposure control (AEC) There is a comminuted impacted fracture of the right humeral head and neck. No dislocation. There is glenohumeral joint space widening due to the presence of a joint effusion. There is mild acromioclavicular degenerative disease. Impression: Comminuted impacted fracture of the right humeral head and neck [employer] Professional: MALACHI Transcribe Date/Time: Jul 10 2021 5:19P Dictated by : ZULMA TORRES MD This examination was interpreted and the report reviewed and electronically signed by: ZULMA TORRES MD on Jul 10 2021 5:24PM EST [id number] [facility] ED NOTEon 07-10-2021 ED NOTE HNO ID: [id number] Author: Viv Keith RN Service: Nursing Author Type: Registered Nurse Type: ED Notes Filed: 07/10/2021 6:30 PM Note Text: VSS. Copy of CT handed to patient. She is aware of discharge instructions, follow up care with ortho, medication to take at home for pain and when to seek medical attention. Her right arm was wrapped in justin wraps and placed back in her sling. She was pushed out to family's car in wheelchair. Thankful for care. [facility] ED NOTE HNO ID: [id number] Author: Viv Keith RN Service: Nursing Author Type: Registered Nurse Type: ED Notes Filed: 07/10/2021 5:08 PM Note Text: Ultrasound at bs. [facility] ED NOTE HNO ID: [id number] Author: Viv Keith RN Service: Nursing Author Type: Registered Nurse Type: ED Notes Filed: 07/10/2021 4:38 PM Note Text: Assisted patient to [facility] and back to bed safely. Voided. Awaiting imaging. [facility] ED NOTE HNO ID: [id number] Author: Viv Keith RN Service: Nursing Author Type: Registered Nurse Type: ED Notes Filed: 07/10/2021 2:56 PM Note Text: Right arm was splinted at [facility] yesterday. She has been in a sling x 2 weeks post fall. Patient is concerned for blood clot in the right arm bc of her bruising that is now going down her arm. +sensation in the right hand and fingers. [facility] ED NOTE HNO ID: [id number] Author: Allegra Mccray RN Service: ? Author Type: Registered Nurse Type: ED Notes Filed: 07/10/2021 12:23 PM Note Text: Pt presents with orders from her PCP for CT and ultrasound of right arm d/t increased bruising and edema s/p shoulder fracture. [facility] ED PROV NOTEon 07-10-2021 ED PROV NOTE HNO ID: [id number] Author: Tiago Gregorio PA-C Service: ? Author Type: Physician Jacquard Plate Maker Type: ED Provider Notes Filed: 07/10/2021 5:58 PM Note Text: ED Provider Note Patient Name: Lesli Rosales SERVICE DATE: 07/10/21 History Patient presents with: Edema: right arm 81-year-old female with a past medical history of COPD, hypertension, A. fib, on Xarelto, presents to the ED today for right arm swelling. Patient broke her right shoulder couple weeks ago and saw orthopedics who told her to come to the ED for right arm ultrasound to rule out a DVT as well as a CT scan of the shoulder. Patient said that she is taking her Xarelto as prescribed. She denies any chest pain or shortness of breath. Denies any fevers. Denies any pain out of portion. Denies any numbness in her hand. PAST MEDICAL HISTORY Diagnosis Date - A-fib (HCC) - Chronic obstructive pulmonary disease (COPD) (HCC) - Hypertension PAST SURGICAL HISTORY Procedure Laterality Date - BACK SURGERY HX - CHOLECYSTECTOMY HX No family history on file. Social History Tobacco Use - Smoking status: Former Smoker Types: Cigarettes Quit date: 09/22/1975 Years since quittin.8 - Smokeless tobacco: Never Used Substance and Sexual Activity - Alcohol use: Not on file - Drug use: Not on file - Sexual activity: Not on file ALLERGIES No Known Allergies Review of Systems Constitutional: Negative for chills and fever. HENT: Negative for drooling, ear discharge, hearing loss, mouth sores, postnasal drip, sneezing and voice change. Eyes: Negative for photophobia and visual disturbance. Respiratory: Negative for chest tightness, shortness of breath and wheezing. Cardiovascular: Negative for chest pain and palpitations. Gastrointestinal: Negative for abdominal distention, abdominal pain, anal bleeding, blood in stool, constipation, diarrhea, nausea, rectal pain and vomiting. Genitourinary: Negative for dysuria, flank pain, hematuria, pelvic pain, vaginal bleeding and vaginal discharge. Musculoskeletal: Positive for arthralgias and joint swelling. Negative for neck pain and neck stiffness. Skin: Positive for color change and wound. Neurological: Negative for dizziness, numbness and headaches. Psychiatric/Behavioral: Negative for agitation and confusion. The patient is not hyperactive. Physical Exam Vitals [07/10/21 1223] BP Pulse Temp Temp src Resp SpO2 Weight Height 133/96 71 36.8 ?C (98.2 ?F) Oral 20 95 % 85.3 kg (188 lb) -- Physical Exam Constitutional: Appearance: She is well-developed. HENT: Head: Normocephalic and atraumatic. Eyes: Conjunctiva/sclera: Conjunctivae normal. Cardiovascular: Rate and Rhythm: Normal rate and regular rhythm. Pulmonary: Effort: Pulmonary effort is normal. No respiratory distress. Breath sounds: Normal breath sounds. No wheezing. Abdominal: General: Bowel sounds are normal. Palpations: Abdomen is soft. Musculoskeletal: General: Swelling, tenderness and signs of injury present. Normal range of motion. Cervical back: Normal range of motion and neck supple. Comments: Right arm is swollen and tender to palpation over the right shoulder and right biceps with obvious bruising over the right arm and right forearm and right hand. Sensation is intact with both hands, radial and ulnar pulses intact bilaterally, cap refill less than 2 seconds. Limited range of motion of the right shoulder and right arm due to pain and known fracture. Skin: General: Skin is warm and dry. Neurological: Mental Status: She is alert and oriented to person, place, and time. Psychiatric: Behavior: Behavior normal. Diagnostic Testing ED Labs Ordered and Reviewed - No data to display US DVT UPPER RT Final Result IMPRESSION: Negative study for DVT in the right upper extremity. Negative study for superficial thrombophlebitis in the imaged segments of the right upper extremity. Head Tennis Professional: MALACHI Transcribe Date/Time: Jul 10 2021 5:49P Dictated by : ZULMA TORRES MD This examination was interpreted and the report reviewed and electronically signed by: ZULMA TORRES MD on Jul 10 2021 5:50PM EST CT SHOULDER WO IVCON RT Final Result Procedures ED Course / Clinical Impression Clinical Impressions as of 07/10/21 1758 Pain of right upper extremity Bruising see ortho Sling Home meds Return to ed if sx worsen MDM / Disposition / Plan The medical record is reviewed.Triage note is reviewed and incorporated.The nursing note is reviewed and consistent with patient's history and physical exam findings. The vital signs were reviewed and the vital signs are : BP 173/80 Pulse 66 Temp 36.8 ?C (98.2 ?F) (Oral) Resp 14 Wt 85.3 kg (188 lb) SpO2 95% BMI 34.39 kg/m? This is a 81 year old female who presents to the ED with a chief complaint of right arm pain/swelling whose symptoms are controlled in the ED with p (more content not included)... Normal [facility] US DVT UPPER RTon 07-10-2021 US DVT UPPER RT * * *Final Report* * * DATE OF EXAM: Jul 10 2021 5:39PM MARY BETH 1004 - US DVT UPPER RT / PROCEDURE REASON: Arm swelling or pain, DVT suspected * * * * Physician Interpretation * * * * EXAMINATION: RIGHT UPPER EXTREMITY DEEP VENOUS ULTRASOUND WITH DOPPLER IMAGING CLINICAL HISTORY: Right arm swelling TECHNIQUE: Grayscale with compression maneuvers where accessible, color and spectral Doppler of the right internal jugular, subclavian, and axillary veins was performed. Grayscale with compression maneuvers of the right brachial, basilic and cephalic veins was also performed. The contralateral internal jugular and distal subclavian veins were imaged for comparison. Images were obtained and stored in a permanent archive. MQ: [id number]_1 COMPARISON: None RESULT: RIGHT UPPER EXTREMITY DEEP VEINS Internal Jugular vein: Normal compression, normal spontaneous flow. Subclavian vein: Normal, spontaneous flow. Axillary vein: Normal compression, normal spontaneous flow. Brachial vein: Normal compression SUPERFICIAL VEINS Basilic vein: Normal compression. Cephalic vein: Normal compression. LEFT UPPER EXTREMITY (FOR COMPARISON) DEEP VEINS Internal Jugular and Distal Subclavian veins: Normal compression, normal spontaneous flow. IMPRESSION: Negative study for DVT in the right upper extremity. Negative study for superficial thrombophlebitis in the imaged segments of the right upper extremity. Head Tennis Professional: [facility] CENTERHeather Transcribe Date/Time: Jul 10 2021 5:49P Dictated by : ZULMA TORRES MD This examination was interpreted and the report reviewed and electronically signed by: ZULMA TORRES MD on Jul 10 2021 5:50PM EST [id number] [facility] CT Chest w/ Contraston 05-17 CT Chest w/ Contrast Patient Name: LESLI GUADALUPE AMS Computed Tomography ACCESSION EXAM DATE/TIME PROCEDURE ORDERING PROVIDER [id number] 05/17/2021 15:[address] Thorax w/ Contrast Marleni FRIAS MICHAEL CPT code 41653 Q9967 Reason For Exam (CT Thorax w/ Contrast) neoplasm of uncertain behavoir Report CT CHEST WITH CONTRAST: INDICATION: Follow-up pulmonary nodule. COMPARISON: None. CONTRAST: 75 cc of Isovue-370. CT scans of the chest were performed following intravenous contrast administration, with images from the thoracic inlet to the upper abdomen. The images are reviewed in the axial, sagittal and coronal planes. The thyroid is normal in appearance. The [...] of the liver, spleen, kidneys, and adrenals are unremarkable. IMPRESSION: Stable bilateral noncalcified pulmonary nodules. The larger partially calcified right sided pulmonary nodule is also stable. Coronary artery disease. Computed Tomography Report Report Dictated on Final Dictating Physician: DO PADGETT ALFRED Signed Date and Time: 05/18/2021 1:25 pm Signed by: DO PADGETT ALFRED Transcribed Date and Time: 05/18/2021 1:26 Normal [facility] MRI Upper Extremity Right WO JT WO ContrastOrdered By: Cedric Solomon on 04-02-2021 Patient [facility]Z 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 FINDINGS: LIGAMENTS: Normal ulnar and radial collateral ligaments, sagittal bands, and volar plates. Intact joint capsules. 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 Degenerative cystic changes within the carpal bones, including the capitate and triquetrum. No large joint effusions. No subluxation. No acute fracture or bone bruise. TENDONS: No flexor or extensor tendon tear. Mild ECU tenosynovitis. Normal tendon pulleys. MUSCLES: No muscle strains. SOFT TISSUES: No soft tissue edema. No fluid collection or soft tissue mass. IMPRESSION: 1. 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 2. Mild ECU tenosynovitis. Magnetic Resonance Imaging Report Report Dictated on --- Final --- Dictating Physician: MD NIÑO NEIL Signed Date and Time: 04/02/2021 4:02 pm Signed by: MD NIÑO NEIL Transcribed Date and Time: 04/02/2021 4:03 [facility] Work Phone: [facility] - 04/02/2021 4:03 PM EDT Patient Name: LESLI ROSALES Magnetic Resonance Imaging ACCESSION EXAM DATE/TIME PROCEDURE ORDERING PROVIDER [id number] 04/02/2021 13:50 EDT MRI Up Ext Non Joint w/o MD JEANMARIE, CEDRIC Cardenas Contrast Right CPT code 69050 Reason For Exam (MRI Up Ext Non Joint w/o Contrast Right) 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 FINDINGS: LIGAMENTS: Normal ulnar and radial collateral ligaments, sagittal bands, and volar plates. Intact joint capsules. 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 Degenerative cystic changes within the carpal bones, including the capitate and triquetrum. No large joint effusions. No subluxation. No acute fracture or bone bruise. TENDONS: No flexor or extensor tendon tear. Mild ECU tenosynovitis. Normal tendon pulleys. MUSCLES: No muscle strains. SOFT TISSUES: No soft tissue edema. No fluid collection or soft tissue mass. IMPRESSION: 1. 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 2. Mild ECU tenosynovitis. Magnetic Resonance Imaging Report Report Dictated on --- Final --- Dictating Physician: MD NIÑO NEIL Signed Date and Time: 04/02/2021 4:02 pm Signed by: MD NIÑO NEIL Transcribed Date and Time: 04/02/2021 4:03 [facility] Work Phone: [facility] Work Phone: ECHO Complete 2D W Doppler W ColorOrdered By: Nieves Frias on 02-11-2021 TRANSTHORACIC ECHOCARDIOGRAM PATIENT: Lesli Rosales STUDY DATE: 02/11/2021 : 1940 AGE: 80 HT/WT: 157.5 cm (62 85.7 kg in) (188.6 lb) GENDER: F BP: 140 / 74 LOCATION: [facility] PATIENT Outpatient [facility] STATUS: *ORDERING PHYSICIAN: * Altagracia, *FELLOW: * Martin Flores MD *READING PHYSICIAN: * Bob *BRICK PICKER: * Makenna Owens MD [facility] INDICATIONS: Aortic stenosis. CONCLUSIONS SUMMARY: 1. Left ventricle: Systolic function is normal by the biplane method of disks. The estimated ejection fraction is 68%. There are no regional wall motion abnormalities. Unable to assess LV diastolic function due to atrial fibrillation 2. Right ventricle: The cavity size is mildly dilated. Systolic function is normal. Right ventricular systolic pressure is mildly increased. 3. Left atrium: The atrium is severely dilated. 4. Aortic valve: Trileaflet; mildly calcified leaflets. There is mild stenosis. The peak systolic velocity is 2.3 m/sec. The mean systolic gradient is 11 mm Hg. The peak systolic gradient is 21 mm Hg. Dimensionless index: 0.54. The valve area by the velocity-time integral method is 1.7 cm^2. 5. Mitral valve: There is mild, 1+ regurgitation. The peak diastolic gradient is 6 mm Hg. STUDY DATA: Complete transthoracic echocardiogram. Procedure: Image quality was good. M-mode, complete 2D, complete spectral Doppler, and color flow Doppler images were acquired and archived for permanent storage and are available for subsequent review. Study status: Routine. Patient status: Outpatient. ECG RHYTHM: Atrial fibrillation FINDINGS LEFT VENTRICLE: The cavity size is normal. Wall thickness is mildly increased. There is mild concentric hypertrophy. Systolic function is normal by the biplane method of disks. The estimated ejection fraction is 68%. There are no regional wall motion abnormalities. Unable to assess LV diastolic function due to atrial fibrillation RIGHT VENTRICLE: The cavity size is mildly dilated. Systolic function is normal. Right ventricular systolic pressure is mildly increased. Estimated RVSP 36 mmHg. VENTRICULAR SEPTUM: There is no evidence of a ventricular septal defect. LEFT ATRIUM: The atrium is severely dilated. RIGHT ATRIUM: The atrium is severely dilated. ATRIAL SEPTUM: Color Doppler shows no shunt. MITRAL VALVE: Moderately calcified annulus. Mildly thickened leaflets. Doppler: There is mild, 1+ regurgitation. The peak diastolic gradient is 6 mm Hg. AORTIC VALVE: Trileaflet; mildly calcified leaflets. Doppler: There is mild stenosis. There is no regurgitation. Dimensionless index: 0.54. The valve area by the velocity-time integral method is 1.7 cm^2. The valve area index by the velocity-time integral method is 0.9 cm^2/m^2. The mean systolic gradient is 11 mm Hg. The peak systolic gradient is 21 mm Hg. The peak systolic velocity is 2.3 m/sec. TRICUSPID VALVE: Structurally normal valve. Doppler: There is trivial, less than 1+ regurgitation. PULMONIC VALVE: Structurally normal valve. Doppler: There is trivial, less than 1+ regurgitation. AORTA: The aorta is normal. PULMONARY ARTERY: Main pulmonary artery: Normal. PERICARDIUM: There is no pericardial effusion. SYSTEMIC VEINS: Inferior vena cava: The vessel is normal. The IVC collapses by greater than 50% with inspiration. Hepatic veins: The flow pattern shows systolic blunting. Measurements Value Reference Aortic root ID 2.4 cm <4.1 Aortic root ID, STJ, ED 2.4 cm 2.0 - 3.2 Aortic root ID/bsa, STJ, ED 1.2 cm/m^2 1.1 - 1.9 Value Reference Ascending aorta ID 3.4 cm 1.9 - 3.5 Ascending aorta ID/bsa, A-P 1.7 cm/m^2 1.0 - 2.2 Ascending aorta ID, A-P, S 3.4 cm Ascending aorta ID/bsa, A-P, S 1.7 cm/m^2 IVC Value Reference ID 1.6 cm Left ventricle Value Reference LV ID, ED 4.5 cm 3.8 - 5.2 LV ID, ES (more content not included)... [employer] Work Phone: [facility], [employer] Incoming Cardiology Results From [employer] - 02/11/2021 5:00 PM EDT TRANSTHORACIC ECHOCARDIOGRAM PATIENT: Lesli Rosales STUDY DATE: 02/11/2021 : 1940 AGE: 80 HT/WT: 157.5 cm (62 85.7 kg in) (188.6 lb) GENDER: F BP: 140 / 74 LOCATION: [facility] PATIENT [facility] STATUS: *ORDERING PHYSICIAN: * Altagracia, *FELLOW: * Martin Flores MD *READING PHYSICIAN: * Bob *BRICK PICKER: * Makenna Owens MD [facility] INDICATIONS: Aortic stenosis. CONCLUSIONS SUMMARY: 1. Left ventricle: Systolic function is normal by the biplane method of disks. The estimated ejection fraction is 68%. There are no regional wall motion abnormalities. Unable to assess LV diastolic function due to atrial fibrillation 2. Right ventricle: The cavity size is mildly dilated. Systolic function is normal. Right ventricular systolic pressure is mildly increased. 3. Left atrium: The atrium is severely dilated. 4. Aortic valve: Trileaflet; mildly calcified leaflets. There is mild stenosis. The peak systolic velocity is 2.3 m/sec. The mean systolic gradient is 11 mm Hg. The peak systolic gradient is 21 mm Hg. Dimensionless index: 0.54. The valve area by the velocity-time integral method is 1.7 cm^2. 5. Mitral valve: There is mild, 1+ regurgitation. The peak diastolic gradient is 6 mm Hg. STUDY DATA: Complete transthoracic echocardiogram. Procedure: Image quality was good. M-mode, complete 2D, complete spectral Doppler, and color flow Doppler images were acquired and archived for permanent storage and are available for subsequent review. Study status: Routine. Patient status: Outpatient. ECG RHYTHM: Atrial fibrillation FINDINGS LEFT VENTRICLE: The cavity size is normal. Wall thickness is mildly increased. There is mild concentric hypertrophy. Systolic function is normal by the biplane method of disks. The estimated ejection fraction is 68%. There are no regional wall motion abnormalities. Unable to assess LV diastolic function due to atrial fibrillation RIGHT VENTRICLE: The cavity size is mildly dilated. Systolic function is normal. Right ventricular systolic pressure is mildly increased. Estimated RVSP 36 mmHg. VENTRICULAR SEPTUM: There is no evidence of a ventricular septal defect. LEFT ATRIUM: The atrium is severely dilated. RIGHT ATRIUM: The atrium is severely dilated. ATRIAL SEPTUM: Color Doppler shows no shunt. MITRAL VALVE: Moderately calcified annulus. Mildly thickened leaflets. Doppler: There is mild, 1+ regurgitation. The peak diastolic gradient is 6 mm Hg. AORTIC VALVE: Trileaflet; mildly calcified leaflets. Doppler: There is mild stenosis. There is no regurgitation. Dimensionless index: 0.54. The valve area by the velocity-time integral method is 1.7 cm^2. The valve area index by the velocity-time integral method is 0.9 cm^2/m^2. The mean systolic gradient is 11 mm Hg. The peak systolic gradient is 21 mm Hg. The peak systolic velocity is 2.3 m/sec. TRICUSPID VALVE: Structurally normal valve. Doppler: There is trivial, less than 1+ regurgitation. PULMONIC VALVE: Structurally normal valve. Doppler: There is trivial, less than 1+ regurgitation. AORTA: The aorta is normal. PULMONARY ARTERY: Main pulmonary artery: Normal. PERICARDIUM: There is no pericardial effusion. SYSTEMIC VEINS: Inferior vena cava: The vessel is normal. The IVC collapses by greater than 50% with inspiration. Hepatic veins: The flow pattern shows systolic blunting. Measurements Value Reference Aortic root ID 2.4 cm <4.1 Aortic root ID, STJ, ED 2.4 cm 2.0 - 3.2 Aortic root ID/bsa, STJ, ED 1.2 cm/m^2 1.1 - 1.9 Value Reference Ascending aorta ID 3.4 cm 1.9 - 3.5 Ascending aorta ID/bsa, A-P 1.7 cm/m^2 1.0 - 2.2 Ascending aorta ID, A-P, S 3.4 cm Ascending aorta ID/bsa, A-P, S 1.7 cm/m^2 IVC Value Reference ID 1.6 cm Left ventricle Value Reference LV ID, ED 4.5 cm 3.8 - 5.2 LV ID, ES 2.9 cm 2.2 - 3.5 LV ID/bsa, ED 2.3 cm/m^2 2.3 - 3.1 LV ID/bsa, ES 1.5 cm/m^2 1.3 - 2.1 LV PW thickness, ED (H) 1.2 cm 0.6 - 0.9 LV PW/LV ID ratio, ED 0.26 LV wall mass (H) 216 g 66 - 150 LV wall mass/bsa (H) 110 g/m^2 44 - 88 Stroke volume/bsa, 1-p A2C 22.6 ml/m^2 LV end-diastolic volume, 1-p A4C 66 ml 48 - 140 LV end-systolic volume, 1-p A4C 20 ml 12 - 60 LV end-diastolic volume, 2-p 73 ml 46 - 106 (more content not included)... [employer] Phone: [facility] Work Phone: XR CHEST (2 VW)Ordered By: Yanely Frias on 12-11-2020 Patient Name: LESLI HERNANDEZ MS Diagnostic Radiology ACCESSION EXAM DATE/TIME PROCEDURE ORDERING PROVIDER [id number] 12/11/2020 11:26 EDT CR Chest PA & LAT Marleni FRIAS, NIEVES CPT code 11407 Reason For Exam (CR Chest PA & LAT) cough sob Report CHEST, PA & LATERAL: INDICATION: Cough, shortness of breath COMPARISON: 06/28/2017 PA and lateral views of the chest were obtained. The heart is normal in size. The mediastinal silhouette is normal. There is a stable 1.1 cm right midlung field peripheral pulmonary nodule. Chronic interstitial changes are present. There is no pleural thickening. Arthritic changes of the spine and shoulders are present. IMPRESSION: Chronic interstitial changes. Stable peripheral right-sided pulmonary nodule. Report Dictated on --- Final --- Dictating Physician: DO PADGETT ALFRED Signed Date and Time: 12/11/2020 6:37 pm Signed by: DO PADGETT ALFRED Transcribed Date and Time: 12/11/2020 6:38 [facility] Work Phone: [facility], [facility] Incoming [facility] - 12/11/2020 6:38 PM EDT Patient Name: LESLI ROSALES Diagnostic Radiology ACCESSION EXAM DATE/TIME PROCEDURE ORDERING PROVIDER [id number] 12/11/2020 11:26 EDT CR Chest PA & LAT Marleni FRIAS MICHAEL CPT code 98092 Reason For Exam (CR Chest PA & LAT) cough sob Report CHEST, PA & LATERAL: INDICATION: Cough, shortness of breath COMPARISON: 06/28/2017 PA and lateral views of the chest were obtained. The heart is normal in size. The mediastinal silhouette is normal. There is a stable 1.1 cm right midlung field peripheral pulmonary nodule. Chronic interstitial changes are present. There is no pleural thickening. Arthritic changes of the spine and shoulders are present. IMPRESSION: Chronic interstitial changes. Stable peripheral right-sided pulmonary nodule. Report Dictated on --- Final --- Dictating Physician: DO PADGETT ALFRED Signed Date and Time: 12/11/2020 6:37 pm Signed by: DO PADGETT ALFRED Transcribed Date and Time: 12/11/2020 6:38 [facility] Work Phone: Differential,Body Fluidson 1 08-29-2016 Other Cells 2 % Normal [facility] Comment on above: Order Comment: BAL R ULFluid Result Comment: Bloo dy specimen with rare alveolar macrophages, numerousreactive respiratory epithelial cells and acute inflammation.chemic mangler Performed By: #### E FILIPE HERNANDEZ ANA ####[address] [address] CR Chest 1 View Frontalon CR Chest 1 View Frontal Patient Name: LESLI ROSALES Diagnostic Radiology Exam Date/Time 06/28/2017 15:24:31 EST Exam CR Chest 1 View Frontal Ordering Physician JANICE NARAYAN Accession Number [id number] CPT4 Codes 86175 () Reason For Exam low oxygen saturationportable Report PORTABLE CHEST X-RAY CLINICAL INDICATION: Hypoxia A portable frontal view of the chest was obtained. COMPARISON: 06/28/2017 FINDINGS: The heart size is borderline enlarged, similar to the prior study. There is coarsening of the interstitial lung markings, which is felt to be at least partially chronic, however mild superimposed pulmonary vascular congestion is suspected, similar to the prior study. No focal consolidation is seen within the lungs. There is no large pleural effusion or pneumothorax. There are degenerative changes of the spine. IMPRESSION: No significant change when compared with the previous study. Report Dictated on Final Dictated: 06/28/2017 5:03 pm Dictating Physician: MAGGIE ANN Signed Date and Time: 06/28/2017 5:03 pm Signed by: MAGGIE ANN Transcribed Date and Time: 06/28/2017 5:03 [facility] CR Chest 1 View Frontal Patient Name: LESLI ROSALES Diagnostic Radiology Exam Date/Time 06/28/2017 10:06:29 EST Exam CR Chest 1 View Frontal Ordering Physician JANICE NARAYAN Accession Number [id number] CPT4 Codes 10530 () Reason For Exam POST ENB Report CHEST (Frontal View) History: Respiratory abnormality status post ENB Comparison: 10/18/2016 Findings: Frontal chest view shows pulmonary congestion with interstitial infiltrates/edema in both lungs representing change from the prior exam. There is limited visualization of previously described nodule in the lateral right midlung which could not be properly evaluated on this exam due to surrounding interstitial changes.. The heart is mildly enlarged. There is no mediastinal widening or pleural effusion. IMPRESSION: Cardiomegaly with CHF and mild pulmonary edema. Limited visualization of previously described nodule in the lateral right midlung which could be better evaluated by CT. Report Dictated on Final Dictated: 06/28/2017 10:17 am Dictating Physician: MD MARTIN AHMAD Signed Date and Time: 06/28/2017 10:24 am Signed by: MD MARTIN AHMAD Transcribed Date and Time: 06/28/2017 10:17 [facility] CULT./ST. RESPIRATORYon 11-0 CULT[facility]: LESLI ROSALES M.R.N.: [id number] : 1940 Age: 77 Sex: F Ord. Physician: JANICE NARAYAN Location: [address] Copy to: JANICE NARAYAN DISCHARGED: 06/28/17 Adm. Date: 06/28/17 MICROBIOLOGYORDER#: [id number] COLLECTED: 06/28/17 09:30SOURCE: Respiratory (BAL)RUL RECEIVED: 06/28/17 10:38STAIN GRAM FINAL 06/28/17 12:39108/28/16Few polymorphonuclear cells/lpf.No organisms seen.CULT./ST. RESPIRATORY FINAL 06/30/17 12:42108/30/16Few normal respiratory liseth. Normal [facility] Comment on above: Performed By: #### C S/RE ####[address] [place] [address] CULTURE ANAEROBEon 7 CULTURE ANAEROBE Test CULTURE ANAEROB E was cancelled, 06/28/17 10:41 inappropriate specimen. [facility] Patient name: LESLI ROSALES M.R.N.: [id number] : 1940 Age: 77 Sex: F Ord. Physician: JANICE NARAYAN Location: [id number] Copy to: JANICE NARAYAN Adm. Date: 06/28/17 MICROBIOLOGYORDER#: [id number] COLLECTED: 06/28/17 09:30SOURCE: Respiratory (BAL)RUL RECEIVED: 06/28/17 10:38 Normal [facility] Comment on above: Performed By: #### C S/RE ####[address] [address] CULTURE FUNGUSon 06-28-2017 CULTURE FUNGUS [facility] Patient name: LESLI ROSALES Jose Alberto M.R.N.: [id number] : 1940 Age: 77 Sex: F Ord. Physician: JANICE NARAYAN Location: [address] Copy to: JANICE NARAYAN DISCHARGED: 06/28/17 Adm. Date: 06/28/17 MICROBIOLOGYORDER#: [id number] COLLECTED: 06/28/17 09:30SOURCE: Respiratory (BAL) RUL RECEIVED: 06/28/17 10:39CULTURE FUNGUS FINAL 07/20/17 07:5307/20/17No fungus isolated after 21 days. Normal [facility] Comment on above: Performed By: #### E FILIPE HERNANDEZ ANA ####[address] [address] CULTURE MYCOBACTERIA Conc.on 06-28-2017 CULTURE MYCOBACTERIA Conc. [facility] Patient name: LESLI ROSALES Jose Alberto M.R.N.: [id number] : 1940 Age: 77 Sex: F Ord. Physician: JANICE NARAYAN Location: [address] Copy to: JANICE NARAYAN DISCHARGED: 06/28/17 Adm. Date: 06/28/17 MICROBIOLOGYORDER#: [id number] COLLECTED: 06/28/17 09:30SOURCE: Respiratory (BAL)RUL RECEIVED: 06/28/17 10:40CULTURE MYCOBACTERIA Conc. FINAL 08/12/17 17:19108/28/16Test performed at [facility] Microbiology Lab08/12/17No acid-fast bacilli isolated after 6 weeks incubation. Normal [facility] Comment on above: Performed By: #### E FILIPE HERNANDEZ, SHANDA ####[address] [address] [place] [address] Cell Count,Body Fluidon 11 [place] [address] {RBC}/uL Normal [facility] Comment on above: Order Comment: BAL R ULFluid Result Comment: JC ECTED RESULT...Previous above value was , verified on 06/28/17 at12:53 by SLSK . Performed By: #### F LDCC, DIFBF ####[address] [address] [place] [address] Nucleated Cells 411 {cells}/uL Normal [facility] Comment on above: Order Comment: BAL R ULFluid Performed By: #### F LDCC, DIFBF ####[address] [place] [address] Fluid Type BAL RUL Normal [facility] Comment on above: Order Comment: BAL R ULFluid Performed By: #### F LDCC, DIFBF ####[address] [place] [address] Differential,Body Fluidson 1 08-28-2016 Cells Counted for Diff 200 Normal [facility] Comment on above: Order Comment: BAL R ULFluid Result Comment: Inte rpret cell count/differential with caution; clumps ofcells observed. Performed By: #### E SR, ANCA, SHANDA ####[address] [place] [address] Eosinophils/100 leukocytes 6 % Normal [facility] Comment on above: Order Comment: BAL R ULFluid Performed By: #### E SR, ANCA, SHANDA ####[address] [place] [address] Lymphocytes/100 leukocytes 12 % Normal [facility] Comment on above: Order Comment: BAL R ULFluid Performed By: #### E SR, ANCA, SHANDA ####[address] [address] [place] [address] Macrophages 3 % Normal [facility] Comment on above: Order Comment: BAL R ULFluid Performed By: #### E SR, ANCA, SHANDA ####[address] [address] [place] [address] Monocytes/100 leukocytes 2 % Normal [facility] Comment on above: Order Comment: BAL R ULFluid Performed By: #### E SR, ANCA, SHANDA ####[address] [address] [place] [address] Neutrophils/100 leukocytes 75 % Normal [facility] Comment on above: Order Comment: BAL R ULFluid Performed By: #### E SR, ANCA, SHANDA ####[address] [address] [place] [address] Medical Cytology 7 Medical Cytology [facility] [id number] DEPARTMENT OF PATHOLOGY AND [facility] LABORATORY MEDICINE [address] [place] [address] FINAL MEDICAL CYTOLOGY REPORT NAM E: LESLI ROSALES .O.B.: 1940 77 Y F BILLING NO.: [id number]: PAC1O PACU OUTPT 1PAC PROCEDURE 06/28/2017 02 DATE:PHYSICIAN: JANICE NARAYAN M.D. RECEIVED DATE: 06/28/2017ATTENDING: JANICE NARAYAN M.D. REPORT DATE: 06/29/2017COPIES TO: CLINIC AL DATA: Lung noduleDIAGNOSISNO MALIGNANT CELLS IDENTIFIED.NO SIGNIFICANT MICROORGANISMS OR VIRAL CELLULAR CHANGES IDENTIFIED.Adequate specimen containing > 90% alveolar macrophages.Comment: ADDITIONAL CYTOLOGY CASES EXIST FOR THIS SAME DATE OFSERVICESPECIMEN: BRONCHOALVEOLAR LAVAGE, RIGHT , RULPROCEDURE(S): LAVAGEGROSS DESCRIPTION: 30 ml fluid, peach large material w/cytolyt. Materials Prepared Monolayers . . . . . . . . . . . . 1JP0 Screened by ANGELICA LUZ M.D.The following statement applies to all immunohistochemistry, in situhybridization, molecular studies, and immunofluorescence testing.The use of one or more reagents in the above tests is regulated as ananalyte specific reagent (ASR). These tests were developed and theirperformance characteristics determined by the clinical laboratories [facility]. They have not been cleared by the US Food and DrugAdministration (FDA). The FDA has determined that such clearance orapproval is not necessary.All the above immunostains were performed on paraffin embedded tissue.Appropriate positive and negative controls (where applicable) were runin parallel with the patient's specimen; these controls showed expectedstaining pattern, with acceptable intensity of staining.Immunohistochemica l assays have not been validated on decalcifiedtissues. Results should be interpreted with caution given the raisedpossibility of false negativity on decalcified specimens.Case reviewed at [facility] [address] [place], [place]. DEPARTMENT OF PATHOLOGY AND LABORATORY MEDICINE [place], [place] [address] Normal [facility] Comment on above: Performed By: #### E FILIPE HERNANDEZ ANA ####[address] [address] Medical Cytology [facility] [id number] DEPARTMENT OF PATHOLOGY AND [facility] LABORATORY MEDICINE [address] [place] [address] SUPPLEMENTAL MEDICAL CYTOLOGY REPORT NAM E: LESLI ROSALES .O.B.: 1940 77 Y F BILLING NO.: [id number]: PAC1O PACU OUTPT 1PAC PROCEDURE 06/28/2017 02 DATE:PHYSICIAN: JANICE NARAYAN M.D. RECEIVED DATE: 06/28/2017ATTENDING: JANICE NARAYAN M.D. REPORT DATE: 06/29/2017COPIES TO:CLINICAL DATA: RUL lung noduleDIAGNOSISRARE ATYPICAL EPITHELIAL CELLS PRESENT OF UNCERTAIN SIGNIFICANCE.Adequate cellular material including numerous well preservedrespiratory epithelial cells and macrophages.SUPPLEMENTAL REPORT: (07/06/17)Immunohistochemic al staining for p40 and TTF-1 was performed on thescant cellular cell block. The rare atypical cells present did stainpositively weak for TTF-1. The possibility of carcinoma cannot beentirely excluded. Please correlate with clinical and radiographicfindings. /kmsComment: ADDITIONAL CYTOLOGY CASES EXIST FOR THIS SAME DATE OFSERVICERapid Evaluation: Pass 1 - Blood. Pass 2 - Atypical cell clusters. Pass 3 - Blood. Pass4 - Rare atypical cells. Pass 5 - Bronchial cells, blood. Onsiteinterpretation by Dr. Ashton.SPECIMEN: FINE NEEDLE ASPIRATION-TRANSBRONCHIAL , RUL BrushPROCEDURE(S): TRANSBRONCHIAL NEEDLE ASPIRATIONGROSS DESCRIPTION: 15 ml, pink fluid, w/cytolyt. Materials Prepared Cell Blocks . . . . . . . . . . . . 1 Smear Slides . . . . . . . . . . . 7 Special Stains . . . . . . . . . . DQ , IP40, ITTF1,JP0 Screened by ANGELICA LUZ M.D.Printed July 06, 2017 at 3:25:31 PMDisclaimer The following statement applies to all immunohistochemistry,in situ hybridization, molecular studies, and immunofluorescencetesting.T he use of one or more reagents in the above tests is regulated as ananalyte specific reagent (ASR). These tests were developed and theirperformance characteristics determined by the clinical laboratories [facility]. They have not been cleared by the US Food and DrugAdministration (FDA). The FDA has determined that such clearance orapproval is not necessary.All the above immunostains were performed on paraffin embedded tissue.Appropriate positive and negative controls (where applicable) were runin parallel with the patient's specimen; these controls showed expectedstaining pattern, with acceptable intensity of staining.Immunohistochemica l assays have not been validated on decalcifiedtissues. Results should be interpreted with caution given the raisedpossibility of false negativity on decalcified specimens.Case reviewed at [address] [address] [place], [place]. DEPARTMENT OF PATHOLOGY AND LABORATORY MEDICINE [place], [place] [address] [facility] Comment on above: Performed By: #### FILIPE Ulrich SR, SHANDA ####[place] [address] STAIN ACID-FASTon 06-28-2017 STAIN ACID-FAST [facility] Patient name: CONNIE LESLI Abrams M.R.N.: [id number] : 1940 Age: 77 Sex: F Ord. Physician: JANICE NARAYAN Location: [address] Copy to: JANICE NARAYAN DISCHARGED: 06/28/17 Adm. Date: 06/28/17 MICROBIOLOGYORDER#: [id number] COLLECTED: 06/28/17 09:30SOURCE: Respiratory (BAL)RUL RECEIVED: 06/28/17 10:40STAIN ACID-FAST FINAL 06/28/17 18:4606/28/17No acid-fast bacilli seen in smear.-Method: Fluorescent Stain [facility] Comment on above: Performed By: #### FILIPE Ulrich SR, SHANDA ####[address] [id number] STAIN FUNGUSon 06-28-2017 STAIN FUNGUS [facility] Patient name: CONNIE LESLI Ny.R.N.: [id number] : 1940 Age: 77 Sex: F Ord. Physician: JANICE NARAYAN Location: [id number] Copy to: JANICE NARAYAN DISCHARGED: 06/28/17 Adm. Date: 06/28/17 MICROBIOLOGYORDER#: [id number] COLLECTED: 06/28/17 09:30SOURCE: Respiratory (BAL) RUL RECEIVED: 06/28/17 10:39STAIN FUNGUS FINAL 06/29/17 10:[address]/29/16No fungal elements seen.-Method: Direct Exam by Calcofluor Stain [facility] Comment on above: Performed By: #### E SR, ANCA, SHANDA ####[place] [address] Surgical Pathologyon 017 Surgical Pathology [id number] [facility] DEPARTMENT OF [facility] PATHOLOGY AND LABORATORY MEDICINE [address] [place] [address] SUPPLEMENTAL SURGICAL PATHOLOGY REPORT NAM E: LESLI ROSALES .O.B.: 1940 77 Y F BILLING NO.: [id number]: PAC1O 1PAC 02 PROCEDURE 06/28/2017 DATE:SURGEON: JANICE NARAYAN M.D. RECEIVED 06/28/2017 DATE:ATTENDING: JANICE NARAYAN M.D. REPORT DATE: 06/29/2017 COPIES TO: DIAGNO SIS:LUNG RIGHT UPPER LOBE, TRANSBRONCHIAL BIOPSY - NON DIAGNOSTIC LUNGTISSUE WITH NON-SPECIFIC INTERSTITIAL FIBROSIS.Comment: The rare atypical cells seen in touch preparation probablyrepresent reactive pneumocytes.SUPPLEMENTAL REPORT (07-04-17):AFB and GMS stains were performed at the request of Dr. Narayan. Thestains are negative for microorganisms.MA/MA MANUELA PRADO M.D. [facility] INFORMATION: Right upper lobe lung noduleSPECIMEN: TRANSBRONCHIAL BIOPSY INT RAOPERATIVE CONSULTATION/FROZEN SECTION DIAGNOSIS:TOUCH PREPARATION:TP 1 - Rare atypical cells. Alok Ashton M.D.GROSS DESCRIPTION:Right upper lobe transbronchial biopsyReceived in formalin are multiple reddish-erazo tissue fragmentsaggregating to 0.4 x 0.4 cm. The specimen is entirely submitted in asingle cassette. (bits ns, 1) JCK/[id number]: The following statement applies to allimmunohistochemistry, in situ hybridization, molecular studies, andimmunofluorescence testing.The use of one or more reagents in the above tests is regulated as ananalyte specific reagent (ASR). These tests were developed and theirperformance characteristics determined by the clinical laboratories [facility]. They have not been cleared by the US Food and DrugAdministration (FDA). The FDA has determined that such clearance orapproval is not necessary.All the above immunostains were performed on paraffin embedded tissue.Appropriate positive and negative controls (where applicable) were runin parallel with the patient's specimen; these controls showed expectedstaining pattern, with acceptable intensity of staining.Immunohistochemica l assays have not been validated on decalcifiedtissues. Results should be interpreted with caution given the raisedpossibility of false negativity on decalcified specimens.Professional Performing Location: [address] [place] [address]. DEPARTMENT OF PATHOLOGY AND LABORATORY MEDICINE [place], [place] [address] Normal [facility] Comment on above: Performed By: #### E FILIPE HERNANDEZ ANA ####[address] [place] [address] Hypersen Pneumon 06-07-2017 A pullulans None Detected Normal None Detected [facility] Comment on above: Result Comment: Test ing includes antibodies directed at Aureobasidium pullulans,Aspergillus fumigatus #1, Aspergillus fumigatus #6, Micropolysporafaeni and Thermoactinomyces vulgaris #1. Asp fumigatus 1 None Detected Normal None Detected [facility] Asp fumigatus 6 None Detected Normal None Detected [facility] M faeni None Detected Normal None Detected [facility] [place] Serum None Detected Normal None Detected [facility] T vulgaris None Detected Normal None Detected [facility] Comment on above: Result Comment: Perf ormed by [facility],[address] [place] [id number] zsu.Independent IP, Kar Torres MD - Lab. Director PF Pulmonary Function Teston 06-07-2017 PF Pulmonary Function Test Patient Name: LESLI ROSALES Pulmonary Function Exam Date/Time 06/06/2017 17:45:44 EDT Exam PF Pulmonary Function Test Ordering Physician SUSHMA VELA ELLEN E Accession Number [id number] Reason For Exam SHORTNESS OF BREATH Report Diffusion capacity is 54 percent predicted. Total lung capacity is 84 percent predicted, 3.7 L. Vital capacity is 57 percent predicted, 1.3 L. FEV1 is 0.9 L, 54 percent predicted. FEV1 FVC ratio 70 percent. There is bronchodilator response noted. Impression moderately severe large airways obstruction with bronchodilator response. Reduced diffusion capacity consistent with COPD. Normal lung volumes Report Dictated on Final Dictated: 06/07/2017 3:54 pm Dictating Physician: MD GARCIA PAUL Signed Date and Time: 06/07/2017 3:55 pm Signed by: MD GARCIA PAUL Transcribed Date and Time: 06/07/2017 3:54 Normal [facility] Anti-Nuclear Antibodyon 05-21 SHANDA Pattern See Below Normal [facility] Comment on above: Result Comment: An A nti-mitochondrial antibody is present at a titer of1:160. Performed By: #### E SR, ANCA, SHANDA ####[address] [address] SHANDA Titer See Below Abnormal <1:40 [facility] Comment on above: Performed By: #### E SR, ANCA, SHANDA ####[address] [id number] CCP Ab, IgGon 06-04-2017 CCP Ab, IgG 3 Units Normal 0-19 [facility] Comment on above: Result Comment: INTE RPRETIVE INFORMATION: Cyclic Citrullinated Peptide Antibody,IgG19 Units or less ................... Ciwzmsbp06-50 Units ........................ Weak Kavszqof39-17 Units ........................ Moderate Ftubtxib81 Units or greater ................ Strong PositiveAnti-cyclic citrullinated peptide (anti-CCP), IgG antibodies arepresent in about 69-83 percent of patients with rheumatoidarthritis (RA) and have specificities of 93-95 percent. Theseautoantibodies may be present in the preclinical phase of disease,are associated with future RA development, and may predictradiographic joint destruction. Patients with weak positiveresults should be monitored and testing repeated.Performed by [facility],[address] [place] [id number] dde.Independent IP, Kar Torres MD - Lab. Director ANCAsalima 06-02-2017 cANCA NOT DETECTED Normal Not-Detect [facility] Comment on above: Performed By: #### E SR, ANCA, SHANDA ####[address] [id number] pANCA NOT DETECTED Normal Not-Detect [facility] Comment on above: Performed By: #### E SR, ANCA, SHANDA ####[address] [place] [address] Sed Rateon 06-01-2017 Sed Rate 1 mm/h Normal 0-20 [facility] Comment on above: Performed By: #### FILIPE Ulrich SR, ANA ####[address] [place] [address] Gram stain for investigation of transfusion reaction Microscopic observation Gram stain Nom (Unsp spec) [facility] Work Phone: No Panel Information Nasopharyngeal Culture Staphylococcus aureus [facility] Work Phone: Vital Signs Date Time Vital Sign Value Performing Clinician Angy grimaldo 01-23-2025 09:13-0400 Body height 152.4 cm Felecia Mercado MAINFRAME SYSTEMS ENGINEER - ACCOUNT MANAGER TRAINEE Work Phone: [facility] 01-23-2025 09:13-0400 Body mass index (BMI) [Ratio] 27.34 kg/m2 Felecia Mercado MAINFRAME SYSTEMS ENGINEER - ACCOUNT MANAGER TRAINEE Work Phone: [facility] 01-23-2025 09:13-0400 Body weight 63.5 kg Felecia Mercado MAINFRAME SYSTEMS ENGINEER - ACCOUNT MANAGER TRAINEE Work Phone: [facility] 01-23-2025 09:13-0400 Diastolic blood pressure 89 mm[Hg] Felecia Mercado MAINFRAME SYSTEMS ENGINEER - ACCOUNT MANAGER TRAINEE Work Phone: [facility] 01-23-2025 09:13-0400 Heart rate 70 /min Felecia Mercado MAINFRAME SYSTEMS ENGINEER - ACCOUNT MANAGER TRAINEE Work Phone: [facility] 01-23-2025 09:13-0400 Systolic blood pressure 146 mm[Hg] Felecia Mercado MAINFRAME SYSTEMS ENGINEER - ACCOUNT MANAGER TRAINEE Work Phone: [facility] 01-14-2025 10:26-0400 Body height 149.86 cm SILVIA GUTHRIE Work Phone: [facility] 01-14-2025 10:26-0400 Body mass index (BMI) [Ratio] 28.3 kg/m2 SILVIA GUTHRIE Work Phone: [facility] 01-14-2025 10:26-0400 Body weight 63.5 kg SILVIA GUTHRIE Work Phone: [facility] 01-01-2025 13:23-0400 Body temperature 98.4 [degF] SILVAI GUTHRIE Work Phone: [facility] 01-01-2025 13:23-0400 Diastolic blood pressure 62 mm[Hg] SILVIA GUTHRIE Work Phone: [facility] 01-01-2025 13:23-0400 Heart rate 75 /min SILVIA GUTHRIE Work Phone: [facility] 01-01-2025 13:23-0400 Respiratory rate 18 /min SILVIA GUTHRIE Work Phone: [facility] 01-01-2025 13:23-0400 SaO2% (BldA) [Mass fraction] 96 % SILVIA GUTHRIE Work Phone: [facility] 01-01-2025 13:23-0400 Systolic blood pressure 118 mm[Hg] SILVIA GUTHRIE Work Phone: [facility] 01-01-2025 07:35-0400 Inhaled oxygen flow rate 2 L/min SILVIA GUTHRIE Work Phone: [facility] 01-01-2025 05:07-0400 Body mass index (BMI) [Ratio] 27.8 kg/m2 SILVIA GUTHRIE Work Phone: [facility] 01-01-2025 05:07-0400 Body weight 64.3 kg SILVIA GUTHRIE Work Phone: [facility] 12-30-2024 13:17-0400 Body height 151.99 cm SILVIA GUTHRIE Work Phone: [facility] 12-24-2024 20:00-0400 Diastolic blood pressure 100 mm[Hg] SILVIA GUTHRIE Work Phone: [facility] 12-24-2024 20:00-0400 Heart rate 57 /min SILVIA GUTHRIE Work Phone: [facility] 12-24-2024 20:00-0400 Respiratory rate 17 /min SILVIA GUTHRIE Work Phone: [facility] 12-24-2024 20:00-0400 SaO2% (BldA) [Mass fraction] 97 % SILVIA GUTHRIE Work Phone: [facility] 12-24-2024 20:00-0400 Systolic blood pressure 139 mm[Hg] SILVIA GUTHRIE Work Phone: [facility] 12-24-2024 19:00-0400 Body temperature 98.6 [degF] SILVIA GUTHRIE Work Phone: [facility] 12-24-2024 16:41-0400 Inhaled oxygen flow rate 2 L/min SILVIA GUTHRIE Work Phone: [facility] 12-24-2024 15:20-0400 Body height 152.4 cm SILVIA GUTHRIE Work Phone: [facility] 12-24-2024 15:20-0400 Body mass index (BMI) [Ratio] 27.8 kg/m2 SILVIA GUTHRIE Work Phone: [facility] 12-24-2024 15:20-0400 Body weight 64.6 kg SILVIA GUTHRIE Work Phone: [facility] 12-09-2024 20:13-0400 Body temperature 98.6 [degF] Hannah Luciano PA-C Work Phone: [facility] 12-09-2024 20:13-0400 Diastolic blood pressure 76 mm[Hg] Hannah Luciano PA-C Work Phone: [facility] 12-09-2024 20:13-0400 Heart rate 70 /min Hannah Luciano PA-C Work Phone: [facility] 12-09-2024 20:13-0400 Respiratory rate 17 /min Hannah Larestlastrid PA-C Work Phone: [facility] 12-09-2024 20:13-0400 SaO2% (BldA) [Mass fraction] 97 % Hannah Luciano PA-C Work Phone: [facility] 12-09-2024 20:13-0400 Systolic blood pressure 132 mm[Hg] Hannah Larestlastrid PA-C Work Phone: [facility] 12-03-2024 21:47-0400 Body temperature 97.59 [degF] Keerthi Bargmann MAINFRAME SYSTEMS ENGINEER.ACCOUNT MANAGER TRAINEE Work Phone: [facility] 12-03-2024 21:47-0400 Diastolic blood pressure 76 mm[Hg] Keerthi Bargmann MAINFRAME SYSTEMS ENGINEER.ACCOUNT MANAGER TRAINEE Work Phone: [facility] 12-03-2024 21:47-0400 Heart rate 70 /min Keerthi Bargmann MAINFRAME SYSTEMS ENGINEER.ACCOUNT MANAGER TRAINEE Work Phone: [facility] 12-03-2024 21:47-0400 Respiratory rate 18 /min Keerthi Bargmann MAINFRAME SYSTEMS ENGINEER.ACCOUNT MANAGER TRAINEE Work Phone: [facility] [facility] 12-[facility]-2024 21:47-0400 SaO2% (BldA) [Mass fraction] 97 % Keerthi Bargmann MAINFRAME SYSTEMS ENGINEER.ACCOUNT MANAGER TRAINEE Work Phone: [facility] 12-03-2024 21:47-0400 Systolic blood pressure 132 mm[Hg] Keerthi Bargmann MAINFRAME SYSTEMS ENGINEER.ACCOUNT MANAGER TRAINEE Work Phone: [facility] 11-29-2024 21:14-0400 Body temperature 97.59 [degF] Keerthi Bargmann MAINFRAME SYSTEMS ENGINEER.ACCOUNT MANAGER TRAINEE Work Phone: [facility] 11-29-2024 21:14-0400 Diastolic blood pressure 76 mm[Hg] Keerthi Bargmann MAINFRAME SYSTEMS ENGINEER.ACCOUNT MANAGER TRAINEE Work Phone: [facility] 11-29-2024 21:14-0400 Heart rate 70 /min Keerthi Bargmann MAINFRAME SYSTEMS ENGINEER.ACCOUNT MANAGER TRAINEE Work Phone: [facility] 11-29-2024 21:14-0400 Respiratory rate 18 /min Keerthi Cuba MAINFRAME SYSTEMS ENGINEER.ACCOUNT MANAGER TRAINEE Work Phone: [facility] 11-29-2024 21:14-0400 SaO2% (BldA) [Mass fraction] 98 % Keerthi Cuba MAINFRAME SYSTEMS ENGINEER.ACCOUNT MANAGER TRAINEE Work Phone: [facility] 11-29-2024 21:14-0400 Systolic blood pressure 132 mm[Hg] Keerthi Cuba MAINFRAME SYSTEMS ENGINEER.ACCOUNT MANAGER TRAINEE Work Phone: [facility] 11-26-2024 16:48-0400 Body temperature 97.59 [degF] Johnieer Sagar D O Work Phone: [facility] 11-26-2024 16:48-0400 Diastolic blood pressure 72 mm[Hg] Isaias Sagar DO Work Phone: [facility] 11-26-2024 16:48-0400 Heart rate 65 /min Isaias Sagar D O Work Phone: [facility] 11-26-2024 16:48-0400 Respiratory rate 22 /min Johnieer Sagar D O Work Phone: [facility] 11-26-2024 16:48-0400 SaO2% (BldA) [Mass fraction] 98 % Isaias Sagar DO Work Phone: [facility] 11-26-2024 16:48-0400 Systolic blood pressure 113 mm[Hg] Isaias Sagar DO Work Phone: [facility] 11-24-2024 09:12-0400 Body temperature 98.2 [degF] SILVIA GUTHRIE Work Phone: [facility] 11-24-2024 09:12-0400 Diastolic blood pressure 66 mm[Hg] SILVIA GUTHRIE Work Phone: [facility] 11-24-2024 09:12-0400 Heart rate 87 /min SILVIA GUTHRIE Work Phone: [facility] 11-24-2024 09:12-0400 Inhaled oxygen flow rate 2 L/min SILVIA GUTHRIE Work Phone: [facility] 11-24-2024 09:12-0400 Respiratory rate 16 /min SILVIA GUTHRIE Work Phone: [facility] 11-24-2024 09:12-0400 SaO2% (BldA) [Mass fraction] 97 % SILVIA GUTHRIE Work Phone: [facility] 11-24-2024 09:12-0400 Systolic blood pressure 148 mm[Hg] SILVIA GUTHRIE Work Phone: [facility] 11-24-2024 04:41-0400 Body mass index (BMI) [Ratio] 33 kg/m2 SILVIA GUTHRIE Work Phone: [facility] 11-24-2024 04:41-0400 Body weight 76.8 kg SILVIA GUTHRIE Work Phone: [facility] 11-21-2024 14:17-0400 Body height 152.4 cm SILVIA GUTHRIE Work Phone: [facility] 11-17-2024 16:59-0400 Body temperature 98.8 [degF] SILVIA GUTHRIE Work Phone: [facility] 11-17-2024 16:59-0400 Diastolic blood pressure 88 mm[Hg] SILVIA GUTHRIE Work Phone: [facility] 11-17-2024 16:59-0400 Heart rate 68 /min SILVIA GUTHRIE Work Phone: [facility] 11-17-2024 16:59-0400 Inhaled oxygen flow rate 3 L/min SILVIA GUTHRIE Work Phone: [facility] 11-17-2024 16:59-0400 Respiratory rate 11 /min SILVIA GUTHRIE Work Phone: [facility] 11-17-2024 16:59-0400 SaO2% (BldA) [Mass fraction] 95 % SILVIA GUTHRIE Work Phone: [facility] 11-17-2024 16:59-0400 Systolic blood pressure 104 mm[Hg] SILVIA GUTHRIE Work Phone: [facility] 11-17-2024 12:42-0400 Body height 152.4 cm SILVIA GUTHRIE Work Phone: [facility] 11-17-2024 12:42-0400 Body mass index (BMI) [Ratio] 30 kg/m2 SILVIA GUTHRIE Work Phone: [facility] 11-17-2024 12:42-0400 Body weight 69.8 kg SILVIA GUTHRIE Work Phone: [facility] 09-12-2024 11:12-0500 Body mass index (BMI) [Ratio] 30.6 kg/m2 Keely Givens MD Work Phone: [facility] 09-12-2024 11:12-0500 Body weight 72.58 kg Keely Givens MD Work Phone: [facility] 09-12-2024 11:12-0500 Diastolic blood pressure 84 mm[Hg] Keely Givens MD Work Phone: [facility] 09-12-2024 11:12-0500 Heart rate 104 /min Keely Givens MD Work Phone: [facility] 09-12-2024 11:12-0500 Respiratory rate 18 /min Keely Givens MD Work Phone: [facility] 09-12-2024 11:12-0500 SaO2% (BldA) [Mass fraction] 91 % Keely Givens MD Work Phone: [facility] 09-12-2024 11:12-0500 Systolic blood pressure 122 mm[Hg] Keely Givens MD Work Phone: [facility] 07-10-2024 10:00-0500 Body height 154 cm Ana Meza APRN.CN P Work Phone: [facility] 07-10-2024 10:00-0500 Body mass index (BMI) [Ratio] 30.78 kg/m2 Ana Derrick MAINFRAME SYSTEMS ENGINEER.ACCOUNT MANAGER TRAINEE Work Phone: [facility] 07-10-2024 10:00-0500 Body weight 73 kg Ana Sheltonmel MAINFRAME SYSTEMS ENGINEER.CN P Work Phone: [facility] 07-10-2024 10:00-0500 Diastolic blood pressure 88 mm[Hg] Ana Derrick MAINFRAME SYSTEMS ENGINEER.ACCOUNT MANAGER TRAINEE Work Phone: [facility] 07-10-2024 10:00-0500 Heart rate 69 /min Ana Sheltonmel MAINFRAME SYSTEMS ENGINEER.CN P Work Phone: [facility] 07-10-2024 10:00-0500 Systolic blood pressure 145 mm[Hg] Ana Sheltonmel MAINFRAME SYSTEMS ENGINEER.ACCOUNT MANAGER TRAINEE Work Phone: [facility] 06-07-2024 18:20-0400 Body height 152.4 cm Nieves Borja MD Work Phone: [facility] 06-07-2024 18:20-0400 Body mass index (BMI) [Ratio] 31.25 kg/m2 Nieves Borja MD Work Phone: [employer] [place] 06-07-2024 18:20-0400 Body temperature 97.5 [degF] Nieves Borja MD Work Phone: [facility] 06-07-2024 18:20-0400 Body weight 72.58 kg Nieves Borja MD Work Phone: [employer] [place] 06-07-2024 18:20-0400 Diastolic blood pressure 88 mm[Hg] Nieves Borja MD Work Phone: [employer] [place] 06-07-2024 18:20-0400 Heart rate 83 /min Nieves Borja MD Work Phone: [employer] [place] 06-07-2024 18:20-0400 Respiratory rate 18 /min Nieves Borja MD Work Phone: [facility] 06-07-2024 18:20-0400 SaO2% (BldA) [Mass fraction] 94 % Nieves Borja MD Work Phone: [facility] 06-07-2024 18:20-0400 Systolic blood pressure 150 mm[Hg] Nieves Borja MD Work Phone: [facility] 05-29-2024 10:55-0400 Body height 154 cm Giselle Elizondo MD Work Phone: [facility] 05-29-2024 10:55-0400 Body mass index (BMI) [Ratio] 31.62 kg/m2 Giselle Elizondo MD Work Phone: [facility] 05-29-2024 10:55-0400 Body weight 75 kg Giselle Elizondo MD Work Phone: [facility] 05-29-2024 10:55-0400 Diastolic blood pressure 85 mm[Hg] Giselle Elizondo MD Work Phone: [facility] 05-29-2024 10:55-0400 Heart rate 62 /min Giselle Elizondo MD Work Phone: [facility] 05-29-2024 10:55-0400 SaO2% (BldA) [Mass fraction] 93 % Giselle Elizondo MD Work Phone: [facility] 05-29-2024 10:55-0400 Systolic blood pressure 157 mm[Hg] Giselle Elizondo MD Work Phone: [facility] 04-29-2024 10:42-0400 Body height 154 cm Keely Givens MD Work Phone: [facility] 04-29-2024 10:42-0400 Body mass index (BMI) [Ratio] 31.71 kg/m2 Keely Givens MD Work Phone: [facility] 04-29-2024 10:42-0400 Body weight 75.21 kg Keely Givens MD Work Phone: [facility] 04-29-2024 10:42-0400 Diastolic blood pressure 90 mm[Hg] Keely Givens MD Work Phone: [facility] 04-29-2024 10:42-0400 Heart rate 57 /min Keely Givens MD Work Phone: [facility] 04-29-2024 10:42-0400 SaO2% (BldA) [Mass fraction] 92 % Keely Givens MD Work Phone: [facility] 04-29-2024 10:42-0400 Systolic blood pressure 138 mm[Hg] Keely Givens MD Work Phone: [facility] 01-17-2024 13:36-0400 Body height 154 cm Giselle Elizondo MD Work Phone: [facility] 01-17-2024 13:36-0400 Body mass index (BMI) [Ratio] 31.62 kg/m2 Giselle Elizondo MD Work Phone: [facility] 01-17-2024 13:36-0400 Body weight 75 kg Giselle Elizondo MD Work Phone: [facility] 01-17-2024 13:36-0400 Diastolic blood pressure 85 mm[Hg] Giselle Elizondo MD Work Phone: [facility] 01-17-2024 13:36-0400 Heart rate 60 /min Giselle Elizondo MD Work Phone: [facility] 01-17-2024 13:36-0400 SaO2% (BldA) [Mass fraction] 100 % Giselle Elizondo MD Work Phone: [facility] 01-17-2024 13:36-0400 Systolic blood pressure 143 mm[Hg] Giselle Elizondo MD Work Phone: [facility] 12-28-2023 10:31-0400 Body mass index (BMI) [Ratio] 30.41 kg/m2 Keely Givens MD Work Phone: [facility] 12-28-2023 10:31-0400 Body weight 72.12 kg Keely Givens MD Work Phone: [facility] 11-26-2023 14:50-0400 Body temperature 97.39 [degF] Eula Moomaw MAINFRAME SYSTEMS ENGINEER.ACCOUNT MANAGER TRAINEE Work Phone: [facility] 11-26-2023 14:50-0400 Body weight 74.1 kg Eula Moomaw MAINFRAME SYSTEMS ENGINEER.ACCOUNT MANAGER TRAINEE Work Phone: [facility] 11-26-2023 14:50-0400 Diastolic blood pressure 97 mm[Hg] Eula Moomaw MAINFRAME SYSTEMS ENGINEER.ACCOUNT MANAGER TRAINEE Work Phone: [facility] 11-26-2023 14:50-0400 Heart rate 86 /min Eula Moomaw MAINFRAME SYSTEMS ENGINEER.ACCOUNT MANAGER TRAINEE Work Phone: [facility] 11-26-2023 14:50-0400 SaO2% (BldA) [Mass fraction] 92 % Eula Moomaw MAINFRAME SYSTEMS ENGINEER.ACCOUNT MANAGER TRAINEE Work Phone: [facility] 11-26-2023 14:50-0400 Systolic blood pressure 141 mm[Hg] Eula Moomaw MAINFRAME SYSTEMS ENGINEER.ACCOUNT MANAGER TRAINEE Work Phone: [facility] 09-28-2023 13:03-0500 Body height 154 cm Giselle Elizondo MD Work Phone: [facility] 09-28-2023 13:03-0500 Body weight 74 kg Giselle Elizondo MD Work Phone: [facility] 09-28-2023 13:03-0500 Diastolic blood pressure 79 mm[Hg] Giselle Elizondo MD Work Phone: [facility] 09-28-2023 13:03-0500 Heart rate 65 /min Giselle Elizondo MD Work Phone: [facility] 09-28-2023 13:03-0500 SaO2% (BldA) [Mass fraction] 95 % Giselle Elizondo MD Work Phone: [facility] 09-28-2023 13:03-0500 Systolic blood pressure 136 mm[Hg] Giselle Elizondo MD Work Phone: [facility] 06-16-2023 15:03-0400 Body weight 74.39 kg Keely Givens MD Work Phone: [facility] 06-16-2023 15:03-0400 Diastolic blood pressure 82 mm[Hg] Keely Givens MD Work Phone: [facility] 06-16-2023 15:03-0400 Heart rate 67 /min Keely Givens MD Work Phone: [facility] 06-16-2023 15:03-0400 Respiratory rate 16 /min Keely Givens MD Work Phone: [facility] 06-16-2023 15:03-0400 SaO2% (BldA) [Mass fraction] 92 % Keely Givens MD Work Phone: [facility] 06-16-2023 15:03-0400 Systolic blood pressure 138 mm[Hg] Keely Givens MD Work Phone: [facility] 06-16-2023 14:59-0400 Body height 154 cm Pulm Wstr Work Phone: [facility] 06-16-2023 14:59-0400 Body weight 74.48 kg Pulm Wstr Work Phone: [facility] 06-16-2023 14:59-0400 Heart rate 67 /min Pulm Wstr Work Phone: [facility] 06-16-2023 14:59-0400 Respiratory rate 16 /min Pulm Wstr Work Phone: [facility] 06-16-2023 14:59-0400 SaO2% (BldA) [Mass fraction] 92 % Pulm Wstr Work Phone: [facility] 05-22-2023 11:31-0400 Body height 154.9 cm Fernanda Horne PA-C Work Phone: [facility] 05-22-2023 11:31-0400 Diastolic blood pressure 80 mm[Hg] Fernanda Kalka PA-C Work Phone: [facility] 05-22-2023 11:31-0400 Heart rate 70 /min Fernandavon Barrwoka PA-C Work Phone: [facility] 05-22-2023 11:31-0400 Systolic blood pressure 132 mm[Hg] Fernanda Horne PA-C Work Phone: [facility] 11-28-2022 10:50-0400 Body height 154.9 cm Giselle Elizondo MD Work Phone: [facility] 11-28-2022 10:50-0400 Body weight 80.29 kg Giselle Elizondo MD Work Phone: [facility] 11-28-2022 10:50-0400 Diastolic blood pressure 68 mm[Hg] Giselle Elizondo MD Work Phone: [facility] 11-28-2022 10:50-0400 Heart rate 68 /min Giselle Elizondo MD Work Phone: [facility] 11-28-2022 10:50-0400 SaO2% (BldA) [Mass fraction] 92 % Giselle Elizondo MD Work Phone: [facility] 11-28-2022 10:50-0400 Systolic blood pressure 129 mm[Hg] Giselle Elizondo MD Work Phone: [facility] 10-27-2022 15:47-0500 Body height 154.9 cm Miguel Ángel Rea MD Work Phone: [facility] 10-27-2022 15:47-0500 Body mass index (BMI) [Ratio] 34.01 kg/m2 Miguel Ángel Rea MD Work Phone: [facility] 10-27-2022 15:47-0500 Body temperature 97.11 [degF] Miguel Ángel Rea MD Work Phone: [employer] [place] 10-27-2022 15:47-0500 Body weight 81.65 kg Miguel Ángel Rea MD Work Phone: [facility] 10-27-2022 15:47-0500 Diastolic blood pressure 79 mm[Hg] Miguel Ángel Rea MD Work Phone: [facility] 10-27-2022 15:47-0500 Heart rate 68 /min Miguel Ángel Rea MD Work Phone: [facility] 10-27-2022 15:47-0500 Systolic blood pressure 132 mm[Hg] Miguel Ángel Rea MD Work Phone: [facility] 07-11-2022 15:33-0500 Body height 154.9 cm Allyson Maradiaga MAINFRAME SYSTEMS ENGINEER.ACCOUNT MANAGER TRAINEE Work Phone: [facility] 07-11-2022 15:33-0500 Body temperature 98.1 [degF] Allyson Maradiaga MAINFRAME SYSTEMS ENGINEER.ACCOUNT MANAGER TRAINEE Work Phone: [facility] 07-11-2022 15:33-0500 Body weight 83.01 kg Allyson Maradiaga MAINFRAME SYSTEMS ENGINEER.ACCOUNT MANAGER TRAINEE Work Phone: [facility] 07-11-2022 15:33-0500 Diastolic blood pressure 79 mm[Hg] Allyson Maradiaga MAINFRAME SYSTEMS ENGINEER.ACCOUNT MANAGER TRAINEE Work Phone: [facility] 07-11-2022 15:33-0500 Heart rate 66 /min Allyson Maradiaga MAINFRAME SYSTEMS ENGINEER.ACCOUNT MANAGER TRAINEE Work Phone: [facility] 07-11-2022 15:33-0500 Respiratory rate 16 /min Allyson Maradiaga MAINFRAME SYSTEMS ENGINEER.ACCOUNT MANAGER TRAINEE Work Phone: [facility] 07-11-2022 15:33-0500 SaO2% (BldA) [Mass fraction] 91 % Allyson Maradiaga MAINFRAME SYSTEMS ENGINEER.ACCOUNT MANAGER TRAINEE Work Phone: [facility] 07-11-2022 15:33-0500 Systolic blood pressure 155 mm[Hg] Allyson Maradiaga MAINFRAME SYSTEMS ENGINEER.ACCOUNT MANAGER TRAINEE Work Phone: [facility] 07-05-2022 10:00-0500 Body height 154.9 cm Giselle Elizondo MD Work Phone: [facility] 07-05-2022 10:00-0500 Body weight 83.46 kg Giselle Elizondo MD Work Phone: [facility] 07-05-2022 10:00-0500 Diastolic blood pressure 85 mm[Hg] Giselle Elizondo MD Work Phone: [facility] 07-05-2022 10:00-0500 Heart rate 61 /min Giselle Elizondo MD Work Phone: [facility] 07-05-2022 10:00-0500 Systolic blood pressure 126 mm[Hg] Giselle Elizondo MD Work Phone: [facility] 11-06-2021 08:38-0400 Heart rate 73 /min DR MALCOM GIRON MD [facility] 11-06-2021 08:32-0400 Body temperature 98.96 [degF] DR MALCOM GIRON MD [facility] 11-06-2021 08:32-0400 Diastolic blood pressure 62 mm[Hg] DR MALCOM GIRON MD [facility] 11-06-2021 08:32-0400 Heart rate 73 /min DR MALCOM GIRON MD [facility] 11-06-2021 08:32-0400 Systolic blood pressure 116 mm[Hg] DR MALCOM GIRON MD [facility] 11-06-2021 04:50-0400 Body temperature 97.52 [degF] DR MALCOM GIRON MD [facility] 11-06-2021 04:50-0400 Diastolic blood pressure 73 mm[Hg] DR MALCOM GIRON MD [facility] 11-06-2021 04:50-0400 Heart rate 68 /min DR MALCOM GIRON MD [facility] 11-06-2021 04:50-0400 Respiratory rate 20 /min DR MALCOM GIRON MD [facility] 11-06-2021 04:50-0400 Systolic blood pressure 10 mm[Hg] DR MALCOM GIRON MD [facility] 11-05-2021 23:30-0400 Body temperature 98.6 [degF] DR MALCOM GIRON MD [facility] 11-05-2021 23:30-0400 Diastolic blood pressure 52 mm[Hg] DR MALCOM GIRON MD [facility] 11-05-2021 23:30-0400 Heart rate 65 /min DR MALCOM GIRON MD [facility] 11-05-2021 23:30-0400 Respiratory rate 20 /min DR MACLOM GIRON MD [facility] 11-05-2021 23:30-0400 Systolic blood pressure 89 mm[Hg] DR MALCOM GIRON MD [facility] 11-05-2021 19:18-0400 Diastolic Blood Pressure NBP [address] MALCOM GIRON MD [facility] 11-05-2021 19:18-0400 Heart rate 73 /min DR MALCOM GIRON MD [facility] 11-05-2021 19:18-0400 Reason For Taking VItal Signs DR MALCOM GIRON MD [facility] 11-05-2021 19:18-0400 Respiratory rate 18 /min DR MALCOM GIRON MD [facility] 11-05-2021 19:18-0400 Systolic Blood Pressure NBP [address] MALCOM GIRON MD [facility] 11-05-2021 17:08-0400 Body height [address] MALCOM GIRON MD [facility] 11-05-2021 17:08-0400 Body weight 84.[address] MALCOM GIRON MD [facility] 11-05-2021 17:08-0400 Body weight 35.13 kg/m2 DR MALCOM GIRON MD [facility] 11-05-2021 16:54-0400 Body temperature 97.7 [degF] DR MALCOM GIRON MD [facility] 11-05-2021 16:54-0400 Diastolic Blood Pressure NBP [address] MALCOM GIRON MD [facility] 11-05-2021 16:54-0400 Heart rate 66 /min DR MALCOM GIRON MD [facility] 11-05-2021 16:54-0400 Reason For Taking VItal Signs DR MALCOM GIRON MD [facility] 11-05-2021 16:54-0400 Systolic Blood Pressure NBP [address] MALCOM GIRON MD [facility] 11-05-2021 16:00-0400 Body temperature 97.34 [degF] DR MALCOM GIRON MD [facility] 11-05-2021 16:00-0400 Diastolic Blood Pressure NBP [address] MALCOM GIRON MD [facility] 11-05-2021 16:00-0400 Systolic Blood Pressure NBP [address] MALCOM GIRON MD [facility] 11-05-2021 15:07-0400 Body temperature 96.98 [degF] DR MALCOM GIRON MD [facility] 11-05-2021 14:45-0400 Body temperature 97.7 [degF] DR MALCOM GIRON MD [facility] 11-05-2021 14:30-0400 Body temperature 97.7 [degF] DR MALCOM GIRON MD [facility] 11-05-2021 14:15-0400 Body temperature 97.7 [degF] DR MALCOM GIRON MD [facility] 11-05-2021 11:21-0400 Body height [address] MALCOM GIRON MD [facility] 11-05-2021 11:21-0400 Body weight 84.[address] MALCOM GIRON MD [facility] 11-03-2021 11:10-0400 Heart rate 76 /min [facility] MAINFRAME SYSTEMS ENGINEER-ACCOUNT MANAGER TRAINEE [facility] 11-03-2021 11:10-0400 Respiratory rate 16 /min [facility] MAINFRAME SYSTEMS ENGINEER-ACCOUNT MANAGER TRAINEE [facility] 11-03-2021 09:15-0400 Body temperature 97.34 [degF] [facility] MAINFRAME SYSTEMS ENGINEER-ACCOUNT MANAGER TRAINEE [facility] 11-03-2021 09:15-0400 Diastolic blood pressure 59 mm[Hg[facility] SYSTEMS ENGINE[facility]-ACCOUNT MANAGER TRAINEE [facility] 11-03-2021 09:15-0400 Heart rate 73 /min [facility] MAINFRAME SYSTEMS ENGINEER-ACCOUNT MANAGER TRAINEE [facility] 11-03-2021 09:15-0400 Reason For Taking VItal Signs [facility] SYSTEMS ENGINE[facility]-ACCOUNT MANAGER TRAINEE [facility] 11-03-2021 09:15-0400 Respiratory rate 18 /min [facility] MAINFRAME SYSTEMS ENGINEER-ACCOUNT MANAGER TRAINEE [facility] 11-03-2021 09:15-0400 Systolic blood pressure 123 mm[Hg] [facility] MAINFRAME SYSTEMS ENGINEER-ACCOUNT MANAGER TRAINEE [facility] 11-03-2021 08:59-0400 Heart rate 76 /min [facility] MAINFRAME SYSTEMS ENGINEER-ACCOUNT MANAGER TRAINEE [facility] 11-03-2021 08:59-0400 Respiratory rate 16 /min RUBY [place] MAINFRAME SYSTEMS ENGINEER-ACCOUNT MANAGER TRAINEE [facility] 11-03-2021 08:58-0400 Heart rate 64 /min RUBY [place] MAINFRAME SYSTEMS ENGINEER-ACCOUNT MANAGER TRAINEE [facility] 11-03-2021 05:59-0400 Heart rate 74 /min RUBY [place] MAINFRAME SYSTEMS ENGINEER-ACCOUNT MANAGER TRAINEE [facility] 11-02-2021 22:51-0400 Body temperature 98.78 [degF] [facility] MAINFRAME SYSTEMS ENGINEER-ACCOUNT MANAGER TRAINEE [facility] 11-02-2021 22:51-0400 Diastolic blood pressure 89 mm[Hg] [facility] MAINFRAME SYSTEMS ENGINEER-ACCOUNT MANAGER TRAINEE [facility] 11-02-2021 22:51-0400 Heart rate 104 /min RUBY [place] MAINFRAME SYSTEMS ENGINEER-ACCOUNT MANAGER TRAINEE [facility] 11-02-2021 22:51-0400 Reason For Taking VItal Signs RUBY [place] MAINFRAME SYSTEMS ENGINEER-ACCOUNT MANAGER TRAINEE [facility] 11-02-2021 22:51-0400 Systolic blood pressure 141 mm[Hg] [facility] MAINFRAME SYSTEMS ENGINEER-ACCOUNT MANAGER TRAINEE [facility] 11-02-2021 18:34-0400 Heart rate 70 /min RUBY [place] MAINFRAME SYSTEMS ENGINEER-ACCOUNT MANAGER TRAINEE [facility] 11-02-2021 15:53-0400 Body temperature 97.88 [degF] [facility] MAINFRAME SYSTEMS ENGINEER-ACCOUNT MANAGER TRAINEE [facility] 11-02-2021 15:53-0400 Diastolic blood pressure 76 mm[Hg] RUBY [place] MAINFRAME SYSTEMS ENGINEER-ACCOUNT MANAGER TRAINEE [facility] 11-02-2021 15:53-0400 Reason For Taking VItal Signs [facility] [place] MAINFRAME SYSTEMS ENGINEER-ACCOUNT MANAGER TRAINEE [facility] 11-02-2021 15:53-0400 Systolic blood pressure 128 mm[Hg] [facility] MAINFRAME SYSTEMS ENGINEER-ACCOUNT MANAGER TRAINEE [facility] 11-02-2021 13:00-0400 Body weight 35.13 kg/m[facility] MAIN[facility] SYSTEMS ENGINEER-ACCOUNT MANAGER TRAINEE [facility] 11-02-2021 10:52-0400 diastolic 87 mm[Hg] [facility] MAINFRAME SYSTEMS ENGINEER-ACCOUNT MANAGER TRAINEE [facility] 11-02-2021 10:52-0400 systolic 152 mm[Hg] [facility] MA[facility] SYSTEMS ENGINE[facility]-ACCOUNT MANAGER TRAINEE [facility] 11-02-2021 10:24-0400 diastolic 87 mm[Hg] [facility] MAINFRAME SYSTEMS ENGINEER-ACCOUNT MANAGER TRAINEE [facility] 11-02-2021 10:24-0400 Heart rate 67 /min [facility] MAINFRAME SYSTEMS ENGINEER-ACCOUNT MANAGER TRAINEE [facility] 11-02-2021 10:24-0400 systolic 154 mm[Hg] [facility] MAINFRAME SYSTEMS ENGINEER-ACCOUNT MANAGER TRAINEE [facility] 11-02-2021 10:11-0400 diastolic 90 mm[Hg] [facility] MAINFRAME SYSTEMS ENGINEER-ACCOUNT MANAGER TRAINEE [facility] 11-02-2021 10:11-0400 Heart rate 74 /min [facility] MAINFRAME SYSTEMS ENGINEER-ACCOUNT MANAGER TRAINEE [facility] 11-02-2021 10:11-0400 systolic 159 mm[Hg] [facility] MAINFRAME SYSTEMS ENGINEER-ACCOUNT MANAGER TRAINEE [facility] 11-02-2021 09:31-0400 Body height 155 cm [facility] MAINFRAME SYSTEMS ENGINEER-ACCOUNT MANAGER TRAINEE [facility] 11-02-2021 09:31-0400 Body temperature 98.6 [degF] [facility] MAINFRAME SYSTEMS ENGINEER-ACCOUNT MANAGER TRAINEE [facility] 11-02-2021 09:31-0400 Body weight 84.4 kg [facility] MAINFRAME SYSTEMS ENGINEER-ACCOUNT MANAGER TRAINEE [facility] 09-03-2021 11:22-0500 Body height [address] MALCOM GIRON MD [facility] 09-03-2021 11:22-0500 Body weight 84.[address] MALCOM GIRON MD [facility] 09-03-2021 11:22-0500 Body weight 36.05 kg/m2 DR MALCOM GIRON MD [facility] 09-03-2021 11:22-0500 diastolic 100 mm[Hg] DR MALCOM GIRON MD [facility] 09-03-2021 11:22-0500 Heart rate 63 /min DR MALCOM GIRON MD [facility] 09-03-2021 11:22-0500 Respiratory rate 20 /min DR MALCOM GIRON MD [facility] 09-03-2021 11:22-0500 systolic 172 mm[Hg] DR MALCOM GIRON MD [facility] 04-24-2020 14:27-0400 BMI (Body Mass Index) 37.11 kg/m2 [facility] [place] [place] 04-24-2020 14:27-0400 Body weight 86.18 kg [place] [employer] [place] , [place] 04-24-2020 14:27-0400 Height 152.4 cm [facility] [employer] [place] , [place] 04-24-2020 14:15-0400 Body Temperature 98.91 [degF] [place] [facility] 04-24-2020 14:15-0400 BP Diastolic 87 mm[Hg] [place] [employer] [place] , [place] 04-24-2020 14:15-0400 BP Systolic 147 mm[Hg] [place]- [place] , [place] 04-24-2020 14:15-0400 Pulse (Heart Rate) 63 /min [place], [place] 04-24-2020 14:15-0400 Pulse Oximetry 92 % [place] [address] , [place] 04-24-2020 14:15-0400 Respiratory Rate 16 /min [place] Encounters Encounter Date Encounter Type Care Provider Facility Start: 01-31-2025 End: 01-31-2025 Telephone encounter Marty Guthrie MD Work Phone: [facility] Clinical Communication Comment on above: Home Visit Start: 01-23-2025 End: 01-23-2025 Office outpatient new 30 minutes Felecia Mercado APRN - ACCOUNT MANAGER TRAINEE Work Phone: [facility] Comment on above: Age-related osteopor osis without current pathological fracture (Primary Dx); Postmenopausal; History of fragility fracture; Fracture Risk Assessment Score (FRAX) indicating greater than 20% risk for major osteoporosis-related fracture; Fracture Risk Assessment Score (FRAX) indicating greater than 3% risk for hip fracture Start: 01-23-2025 End: 01-23-2025 ambulatory FELECIA MERCADO [facility] Start: 01-14-2025 End: 01-14-[address] Brendan Mclain MD -[facility] Start: 01-14-2025 End: 01-14-2025 ambulatory ISLVIA CRUZEL Work Phone: [facility] Work Phone: Start: 01-01-2025 Non-patient / Non-visit [facility]. Hay[facility] Work Phone: Start: 12-31-2024 Non-patient / Non-visit Dr. Haylee Warren DO [facility] Work Phone: Start: 12-31-2024 End: 12-31-2024 Telephone encounter Marty Guthrie MD Work Phone: [facility] Comment on above: Home Care ( to lexi jackson) Start: 12-31-2024 [facility] Start: 12-30-2024 Non-patient / Non-visit Dr. Haylee Warren DO [facility] Work Phone: Start: 12-30-2024 [facility] Start: 12-29-2024 Non-patient / Non-visit [facility] Work Phone: Start: 12-28-2024 Non-patient / Non-visit [facility] Work Phone: Start: 12-27-2024 Non-patient / Non-visit Amair[facility] Start: 12-27-2024 Non-patient / Non-visit [facility] Work Phone: Start: 12-26-2024 Non-patient / Non-[facility] Start: 12-26-2024 Non-patient / Non-visit [facility] Work Phone: Start: 12-25-2024 Non-patient / Non-visit [facility] Work Phone: Start: 12-24-2024 ambulatory Kevin Morgan ty:[facility] Start: 12-24-2024 End: 01-01-2025 Evaluation and management of inpatient Dr. Kevin Caballero DO -Medical Surgical 3 Work Phone: Start: 12-09-2024 End: 12-11-2024 ambulatory Hannah Luciano PA-C Work Phone: [facility] Comment on above: Weakness (Primary Dx ); HTN (hypertension), benign; Chronic atrial fibrillation (HCC) Start: 12-03-2024 End: 12-03-2024 ambulatory Keerthi Valdiviacecil MAINFRAME SYSTEMS ENGINEER.ACCOUNT MANAGER TRAINEE Work Phone: [facility] Comment on above: Chronic atrial fibri llation (HCC) (Primary Dx); Chronic midline low back pain without sciatica; Mixed simple and mucopurulent chronic bronchitis (HCC); HTN (hypertension), benign; Weakness Start: 11-29-2024 End: 12-03-2024 ambulatory Keerthi Ang Bereket MAINFRAME SYSTEMS ENGINEER.ACCOUNT MANAGER TRAINEE Work Phone: [facility] Comment on above: Mixed simple and muc opurulent chronic bronchitis (HCC) (Primary Dx); Chronic atrial fibrillation (HCC); HTN (hypertension), benign; Chronic midline low back pain without sciatica Start: 11-28-2024 End: 11-28-2024 Telephone encounter Marty Guthrie MD Work Phone: [facility] Central Scheduling Comment on above: Other (Central sched uling ) Start: 11-26-2024 End: 12-04-2024 ambulatory Isaias Keith DO Work Phone: [facility] Comment on above: Chronic atrial fibri llation (HCC) (Primary Dx); HTN (hypertension), benign; Paroxysmal atrial fibrillation (HCC); Mixed simple and mucopurulent chronic bronchitis (HCC); Weakness Start: 11-24-2024 Non-patient / Non-visit Dr. Kevin tapia MD [facility] Work Phone: Start: 11-23-2024 Non-patient / Non-visit Dr. Kevin tapia MD [facility] Work Phone: Start: 11-22-2024 Non-patient / Non-visit Dr. Kevin tapia MD [facility] Work Phone: Start: 11-21-2024 Non-patient / Non-visit Dr. Kevin tapia MD [facility] Work Phone: Start: 11-20-2024 Non-patient / Non-visit Dr. Gato Barksdale own DO -[facility] Start: 11-19-2024 Non-patient / Non-visit Dr. Gato Barksdale own DO -[facility] Start: 11-18-2024 ambulatory Brendan Mclain Facility:[facility] Start: 11-18-2024 Non-patient / Non-visit Dr. Reinoso MD -[facility] Start: 11-18-2024 Non-patient / Non-visit Dr. Gato Barksdale own DO -[facility] Start: 11-17-2024 ambulatory Elsy Perdomo Facility:[facility] Start: 11-17-2024 End: 11-24-2024 Evaluation and management of inpatient Dr. Elsy Perdomo MD -Intensive Care Unit Work Phone: Start: 10-03-2024 End: 10-03-2024 Emergency department patient visit DANIA GIVENS Facility:[facility] Start: 09-19-2024 End: 09-19-2024 Telephone encounter Reji Alexander Work Phone: Pulmonary Medicine Start: 09-17-2024 End: 12-17-2024 Transcribe Orders Marty Guthrie MD Work Phone: [facility] Central Scheduling Comment on above: Asymptomatic menopau partha state (Primary Dx) Cardiac murmur, unsp ecified (Primary Dx) Start: 09-12-2024 End: 09-12-2024 Patient encounter procedure Keely Caty Brown MD Work Phone: Pulmonary Medicine Comment on above: Lung nodules (Primar y Dx); Moderate COPD (chronic obstructive pulmonary disease) (HCC); Former smoker Start: 09-12-2024 End: 09-12-2024 ambulatory KEELY GIVENS Facility:[facility] Start: 09-12-2024 End: 09-12-2024 Subsequent hospital visit by physician [facility] (I-Stat) Work Phone: [facility] Comment on above: Lung nodules [R91.8] Start: 08-29-2024 End: 08-29-[address] Reji Bennett MD -Laboratory, [place] Work Phone: Start: 08-29-2024 End: 08-29-2024 ambulatory Reji Bennett Facility[facility] Start: 08-16-2024 End: 08-16-2024 Telephone encounter Giselle Elizondo MD Work Phone: [facility] Comment on above: Received Outside [facility] Records ([facility] Orders for oxygen. 07/30/2024) Start: 07-31-2024 End: 08-08-2024 Telephone encounter Giselle Elizondo MD Work Phone: [facility] Comment on above: Orders Start: 07-22-2024 End: 07-22-2024 Telephone encounter Giselle Elizondo MD Work Phone: [facility] Comment on above: Results; Patient Cheo page (Results and her Pancreas) Start: 07-11-2024 End: 07-11-2024 ambulatory ANA MEZA Facility:[facility] Start: 07-11-2024 End: 07-11-2024 Subsequent hospital visit by physician [facility] Work Phone: Radiology Comment on above: Epigastric pain [R10 .13] Start: 07-10-2024 End: 07-10-2024 Telephone encounter Ana Meza APRN.ACCOUNT MANAGER TRAINEE Work Phone: [facility] Comment on above: Patient Question Start: 07-10-2024 End: 07-10-2024 ambulatory ANA MEZA Facility:[facility] Start: 07-10-2024 End: 07-10-2024 Office outpatient visit 25 minutes Ana Derrick MAINFRAME SYSTEMS ENGINEER.ACCOUNT MANAGER TRAINEE Work Phone: [facility] Comment on above: Epigastric pain (Batsheva keerthi Dx); Pancreatic cyst Start: 07-09-2024 End: 07-09-2024 ambulatory Giselle Elizondo MD Work Phone: [facility] Comment on above: Nurse Triage Call Start: 06-16-2024 End: 06-18-2024 Refill Ana Meza MAINFRAME SYSTEMS ENGINEER.ACCOUNT MANAGER TRAINEE Work Phone: [facility] Comment on above: Refill Request Start: 06-14-2024 End: 06-14-2024 Refill Giselle Elizondo MD Work Phone: [facility] Comment on above: Refill Request Start: 06-07-2024 End: 06-07-2024 Emergency department patient visit Nieves Borja MD Work Phone: [facility] Comment on above: Chronic left-sided t horacic back pain (Primary Dx) Start: 06-04-2024 End: 06-04-2024 Refill Giselle Elizondo MD Work Phone: [facility] Comment on above: Refill Request Start: 05-31-2024 End: 06-05-2024 ambulatory Giselle Elizondo MD Work Phone: [facility] Comment on above: Results (Pain from t he fall and asking for those results) Start: 05-29-2024 End: 05-29-2024 Subsequent hospital visit by physician [facility] Comment on above: Closed fracture of m ultiple ribs of left side, sequela [S22.42XS] Start: 05-29-2024 End: 05-29-2024 ambulatory GISELLE ELIZONDO Facility:[facility] Start: 05-29-2024 End: 05-29-2024 Office outpatient visit 25 minutes Giselle Elizondo MD Work Phone: [facility] Comment on above: Closed fracture of m ultiple ribs of left side, sequela (Primary Dx); Chronic left-sided thoracic back pain Start: 05-28-2024 End: 05-28-2024 ambulatory Giselle Elizondo MD Work Phone: [facility] Comment on above: chest injury Start: 05-20-2024 End: 05-20-2024 Emergency department patient visit Ed Physician Provider Facility:[facility] Start: 05-20-2024 End: 05-20-2024 Refill Giselle Elizondo MD Work Phone: [facility] Comment on above: Refill Request Start: 05-08-2024 End: 05-08-2024 Telephone encounter Giselle Elizondo MD Work Phone: [facility] Comment on above: Insurance Authorizat ion Start: 04-29-2024 End: 04-29-2024 ambulatory KEELY GIVENS Facility:[facility] Start: 04-29-2024 End: 04-29-2024 Patient encounter procedure Keely Givens MD Work Phone: Pulmonary Medicine Comment on above: Moderate COPD (chron ic obstructive pulmonary disease) (HCC) (Primary Dx); Ground glass opacity present on imaging of lung; Former smoker Start: 04-09-2024 End: 04-09-2024 Telephone encounter Giselle Elizondo MD Work Phone: [facility] Comment on above: Received Outside [facility] Records ([facility] xray 04/08/24) Start: 04-08-2024 End: 04-08-2024 ambulatory Harpreet Elizondo Facility:[facility] Start: 04-04-2024 Refill Giselle arredondo MD Work Phone: [facility] Comment on above: Refill Request Start: 03-27-2024 Refill Keely Givens MD Work Phone: Pulmonary Medicine Comment on above: Refill Request Start: 03-08-2024 Refill Ana Mace APRN.CNP Work Phone: [facility] Comment on above: Refill Request Start: 02-28-2024 Refill Ana Mace ANA Work Phone: [facility] Comment on above: Refill Request Start: 02-19-2024 Telephone encounter Giselle Elizondo MD Work Phone: [facility] Comment on above: Received Outside Med ical Records (Housecalls 01/29/24) Start: 02-13-2024 Telephone encounter Giselle Elizondo MD Work Phone: [facility] Comment on above: Received Outside Med ical Records ([facility]) Start: 02-12-2024 End: 02-12-2024 ambulatory [facility] Facility[facility] Start: 01-30-2024 Telephone encounter Keely Givens MD Work Phone: Pulmonary Medicine Comment on above: Results (Chest CT) Start: 01-26-2024 Telephone encounter Keely Givens MD Work Phone: Pulmonary Medicine Comment on above: Results Start: 01-19-2024 End: 01-19-2024 ambulatory GISELLE ELIZONDO Facility:[facility] Start: 01-19-2024 End: 01-19-2024 Subsequent hospital visit by physician [facility] Work Phone: [facility] Start: 01-17-2024 End: 01-17-2024 ambulatory GISELLE ELIZONDO Facility:[facility] Start: 01-17-2024 End: 01-17-2024 Patient encounter procedure Giselle Elizondo MD Work Phone: [facility] Comment on above: Medicare annual well ness visit, subsequent (Primary Dx); Idiopathic pulmonary fibrosis (HCC); Psoriatic arthritis (HCC); Obesity, Class I, BMI 30-34.9; 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; Abnormality of gait; Falling episodes; Skin irritation Start: 01-09-2024 Telephone encounter Giselle Elizondo MD Work Phone: [facility] Start: 01-08-2024 End: 01-08-2024 ambulatory GISELLE ELIZONDO Facility[facility] Start: 01-05-2024 Refill Ana Mace MAINFRAME SYSTEMS ENGINEER.ACCOUNT MANAGER TRAINEE Work Phone: [facility] Comment on above: Refill Request Start: 01-05-2024 Telephone encounter Keely Givens MD Work Phone: Pulmonary Medicine Start: 01-02-2024 ambulatory Giselle arredondo MD Work Phone: [facility] [place] Start: 12-28-2023 End: 12-28-2023 Patient encounter procedure Keely Givens MD Work Phone: Pulmonary Medicine Comment on above: Chronic obstructive pulmonary disease, unspecified COPD type (HCC) (Primary Dx); Restrictive lung disease; History of pulmonary fibrosis; Pulmonary nodules; Former cigarette smoker Start: 11-27-2023 Telephone encounter Yadira walton PA-C Work Phone: [facility] Comment on above: Results Start: 11-26-2023 End: 11-26-2023 Patient encounter procedure Eula Gabriel MAINFRAME SYSTEMS ENGINEER.ACCOUNT MANAGER TRAINEE Work Phone: [facility] Comment on above: URI, acute (Primary Dx) Start: 11-08-2023 Telephone encounter Giselle Elizondo MD Work Phone: [facility] Comment on above: Waiting on return ca ll and rx Start: 11-07-2023 ambulatory Giselle arredondo MD Work Phone: [facility] Start: 11-07-2023 E-mail encounter fro m caregiver Giselle Elizondo MD Work Phone: [facility] Start: 11-06-2023 End: 11-06-2023 ambulatory GISELLE ELIZONDO Facility:[facility] Start: 11-02-2023 ambulatory Danae Gerardo [facility] Comment on above: Population Health Na vigation Outreach ([employer] care gaps) Start: 10-05-2023 Refill Giselle arredondo MD Work Phone: [facility] Comment on above: Refill Request Start: 10-01-2023 Refill Loan Madrigal PA-C Work Phone: [facility] Comment on above: Chronic obstructive pulmonary disease, unspecified COPD type (HCC) Refill Request Start: 09-28-2023 End: 09-28-2023 Patient encounter procedure Giselle Elizondo MD Work Phone: [facility] Comment on above: Itching (Primary Dx) ; Upper back pain; Abnormal weight loss; HTN (hypertension), benign; Paroxysmal atrial fibrillation (HCC); Hyperglycemia; Chronic constipation Start: 09-19-2023 Refill Giselle arredondo MD Work Phone: [facility] Comment on above: Refill Request Start: 08-11-2023 Refill Loanabdon Dudleytl COLEMAN-C Work Phone: [facility] Comment on above: Chronic obstructive pulmonary disease, unspecified COPD type (HCC); Pulmonary fibrosis (HCC); Lung nodule Start: 08-07-2023 Preprocedural examin ation done Giselle Elizondo MD Work Phone: [facility] Work Phone: Start: 07-20-2023 End: 07-20-2023 Subsequent hospital visit by physician [facility] (1.5t) [facility] Comment on above: Pancreatic cyst [K86 .2] Start: 07-19-2023 ambulatory Keely Givens MD Work Phone: Pulmonary Medicine Comment on above: Received Outside Med ical Records Start: 07-07-2023 Telephone encounter Giselle Elizondo MD Work Phone: [facility] Comment on above: Medication Request Start: 06-16-2023 End: 06-16-2023 ambulatory Pulm Lab [facility] Work Phone: PULM [facility] Comment on above: Spirometry Start: 06-16-2023 End: 06-16-2023 Patient encounter procedure Pulm [facility] Work Phone: [facility] Comment on above: Moderate COPD (chron ic obstructive pulmonary disease) (HCC) (Primary Dx); Restrictive lung disease; Lung nodules; Former cigarette smoker Start: 06-16-2023 Telephone encounter Fernanda atkinson PA-C Work Phone: [facility] Comment on above: Results Start: 06-12-2023 Refill Giselle arredondo MD Work Phone: [facility] Comment on above: Refill Request Start: 05-25-2023 End: 05-25-2023 Subsequent hospital visit by physician Loan Madrigal PA-C Work Phone: [facility] CT Comment on above: No Show Start: 05-22-2023 Telephone encounter Giselle Elizondo MD Work Phone: [facility] Comment on above: Provider recommendat ion Start: 05-22-2023 End: 05-22-2023 Patient encounter procedure Fernanda Horne PA-C Work Phone: [facility] Comment on above: BRBPR (bright red bl ood per rectum) (Primary Dx); Chronic constipation; Abnormal weight loss; Abdominal distension (gaseous); Other constipation; Nausea Start: 05-17-2023 End: 05-17-2023 Online digital e/m svc est pt <7 d 11-20 minutes Loan Madrigal PA-C Work Phone: [facility] Comment on above: Chronic obstructive pulmonary disease, unspecified COPD type (HCC) (Primary Dx); Dysphagia, unspecified type; Lung nodule; Pulmonary fibrosis (HCC) Start: 03-22-2023 Telephone encounter Giselle Elizondo MD Work Phone: [facility] Comment on above: Medication Request Start: 02-20-2023 End: 02-20-2023 ambulatory Reji Bennett MD Work Phone: [facility] Comment on above: Arrived Start: 02-13-2023 Telephone encounter Giselle Elizondo MD Work Phone: [facility] Comment on above: Refill Request Start: 02-10-2023 Refill Giselle arredondo MD Work Phone: [facility] Comment on above: Refill Request Start: 01-05-2023 Telephone encounter Miguel Ángel berman MD Work Phone: [facility] Comment on above: is her surgery cance lled for 01/11? Start: 12-30-2022 Telephone encounter Giselle Elizondo MD Work Phone: [facility] Comment on above: Received Outside Med ical Records ([facility] Electrodiagnostic testing 12/30/2022) Start: 12-28-2022 Refill Giselle arredondo MD Work Phone: [facility] Comment on above: Refill Request Start: 12-27-2022 Admission to [facility] Karenshell Bae PA-C Work Phone: [facility] Start: 12-27-2022 ambulatory Karenshell Up on PA-C Work Phone: [facility] Start: 12-27-2022 Refill Giselle arredondo MD Work Phone: [facility] Comment on above: Refill Request Start: 12-13-2022 Telephone encounter Miguel Ángel berman MD Work Phone: [facility] Comment on above: Surgery Scheduling Start: 11-28-2022 End: 11-28-2022 Patient encounter procedure Giselle Elizondo MD Work Phone: [facility] Comment on above: Status post shoulder replacement, right (Primary Dx); Osteoporosis of shoulder region; Hypokalemia; Essential hypertension; Chronic atrial fibrillation (HCC); Chronic obstructive pulmonary disease, unspecified COPD type (HCC); Psoriatic arthritis (HCC) Start: 11-23-2022 ambulatory Facility:[facility] Start: 11-21-2022 Telephone encounter Giselle Elizondo MD Work Phone: [facility] Comment on above: Received Outside Med ical Records ([facility] draw 11/21/2022) Results Start: 11-21-2022 End: 11-21-2022 ambulatory [facility] Work Phone: Start: 11-21-2022 End: 11-21-2022 Patient encounter procedure [facility] Start: 11-16-2022 End: 11-16-2022 Subsequent hospital visit by physician Karen Bae PA-C Work Phone: [facility] Comment on above: Dysphagia, unspecifi ed type; Choking, sequela Start: 11-07-2022 Telephone encounter Giselle Elizondo MD Work Phone: [facility] Comment on above: Results Start: 11-01-2022 Telephone encounter Giselle Elizondo MD Work Phone: [facility] Comment on above: Results (Labs /) Start: 10-27-2022 End: 10-27-2022 Office outpatient new 45 minutes Miguel Ángel Rea MD Work Phone: [facility] Comment on above: Choking, sequela (Pr imary Dx); Dysphagia, unspecified type Start: 10-26-2022 Refill Giselle arredondo MD Work Phone: [facility] Comment on above: Refill Request Start: 10-26-2022 Refill Giselle arredondo MD Work Phone: [facility] Comment on above: Refill Request Start: 10-20-2022 End: 10-20-2022 Online digital e/m svc est pt <7 d 11-20 minutes Loan Madrigal PA-C Work Phone: [facility] Comment on above: Chronic obstructive pulmonary disease, unspecified COPD type (HCC) (Primary Dx); Dysphagia, unspecified type; Lung nodule; Pulmonary fibrosis (HCC) Start: 10-14-2022 End: 10-14-2022 Subsequent hospital visit by physician [facility] Pft Room 1 [facility] Pulm Function Test Comment on above: Chronic obstructive pulmonary disease, unspecified COPD type (HCC) Dysphagia, unspecifi ed type Start: 08-31-2022 Telephone encounter Anuj london MD Work Phone: [facility] Comment on above: Orders Orders (Testings to be completed) Start: 08-09-2022 Refill Giselle arredondo MD Work Phone: [facility] Comment on above: Refill Request Start: 07-12-2022 Telephone encounter Allyson Ashwini Brewer PRN.ACCOUNT MANAGER TRAINEE Work Phone: [facility] Comment on above: Results Start: 07-11-2022 End: 07-11-2022 Patient encounter procedure Allyson Vasquezye MAINFRAME SYSTEMS ENGINEER.ACCOUNT MANAGER TRAINEE Work Phone: [facility] Comment on above: Viral URI with cough (Primary Dx) Start: 07-05-2022 Telephone encounter Giselle Elizondo MD Work Phone: [facility] Comment on above: Letter Start: 07-05-2022 End: 07-05-2022 Patient encounter procedure Giselle Elizondo MD Work Phone: [facility] Comment on above: Chronic atrial fibri llation (HCC) (Primary Dx); Chronic obstructive pulmonary disease, unspecified COPD type (HCC); Essential hypertension; Cervical spondylosis; History of right shoulder replacement; Chronic midline low back pain without sciatica; Psoriasis, unspecified; Psoriatic arthritis (HCC) Start: 06-08-2022 End: 06-08-2022 ambulatory [facility] Work Phone: Start: 06-08-2022 End: 06-08-2022 Patient encounter procedure [facility] Start: 05-10-2022 Telephone encounter No Pcp [facility] Comment on above: Patient Question (St op Xarelto for dental procedure) Start: 04-20-2022 End: 04-20-2022 Subsequent hospital visit by physician Lexi [facility] Start: 04-12-2022 End: 04-12-2022 Patient encounter procedure [facility] Start: 03-07-2022 End: 03-07-2022 Patient encounter procedure [facility], Specimen Start: 02-28-2022 End: 02-28-2022 Patient encounter procedure [facility] Start: 02-09-2022 End: 02-09-2022 Subsequent hospital visit by physician Lexi Merino MD Work Phone: [facility] Comment on above: Dizziness and giddin ess Start: 02-01-2022 End: 02-01-2022 Subsequent hospital visit by physician Malcom Giron MD Work Phone: [facility] Comment on above: Presence of right ar tificial shoulder joint Start: 12-23-2021 End: 12-23-2021 Patient encounter [facility] Start: 11-05-2021 End: 11-06-[address] MALCOM GIRON MD [facility] Start: 11-02-2021 End: 11-03-2021 Observation RUBY MARIE MAINFRAME SYSTEMS ENGINEER-ACCOUNT MANAGER TRAINEE [facility] Start: 10-26-2021 End: 10-26-2021 Patient encounter procedure [facility], [place] Start: 09-03-2021 End: 09-03-[address] MALCOM GIRON MD [facility] Start: 05-17-2021 End: 05-17-2021 Subsequent hospital visit by physician Nieves Frias MD Work Phone: [facility] Comment on above: Arrived Start: 04-02-2021 End: 04-02-2021 Subsequent hospital visit by physician Cedric Solomon MD Work Phone: [facility] Comment on above: Arrived Start: 02-11-2021 End: 02-11-2021 Subsequent hospital visit by physician Nieves Frias MD Work Phone: [facility] Comment on above: Arrived Start: 12-11-2020 End: 12-11-2020 Subsequent hospital visit by physician Nieves Frias MD Work Phone: [facility] Start: 04-24-2020 End: 04-24-2020 Emergency department patient visit Luke Ireland Work Phone: [facility] Comment on above: Epistaxis, recurrent (Primary Dx) Start: 01-24-2020 End: 01-24-2020 Subsequent hospital visit by physician Nieves Frias Work Phone: [facility] Comment on above: Arrived Start: 06-28-2017 Ambulatory Janice Narayan [facility] Start: 06-06-2017 Ambulatory Nieves Oh [facility] Start: 06-01-2017 Ambulatory Anuj Mcdanielje[facility]hserg [facility] Procedures Date Procedure Procedure Detail Performing Clinician Start: 01-23-2025 Protein xcpt refractometry serum plasma/whl bld Felecia Mercado MAINFRAME SYSTEMS ENGINEER - ACCOUNT MANAGER TRAINEE Work Phone: Start: 12-30-2024 Fluoroscopic guidance R EBECCA GUTHRIE Work Phone: Start: 12-30-2024 X-ray of lumbar spin e, two or three views SILVIA GUTHRIE Work Phone: Start: 12-30-2024 Balloon kyphoplasty of fracture of spine SILVIA GUTHRIE Work Phone: Start: 12-29-2024 Estimated creatinine clearance SILVIA GUTHRIE Work Phone: Start: 12-27-2024 X-ray of lumbar spin e, two or three views SILVIA GUTHRIE Work Phone: Start: 12-26-2024 Serum inorganic phos phate measurement SILVIA GUTHRIE Work Phone: Start: 12-25-2024 Vitamin D, 25-hydrox y measurement SILVIA GUTHRIE Work Phone: Comment on above: Vitamin D StatusDefi ciency: <20 ng/mL (50nmol/L)Insufficiency: 20-30 ng/mL (50-75 nmol/L)Sufficiency: 30-100 ng/mL (75-250 nmol/L)Toxicity: >100 ng/mL (>250 nmol/L) Start: 12-24-2024 Urnls dip stick/tabl et reagent auto microscopy SILVIA GUTHRIE Work Phone: Start: 12-24-2024 MRI of lumbar spine MARYCARMEN ECCA GUTHRIE Work Phone: Start: 12-24-2024 Plain chest X-ray REBEC CA GUTHRIE Work Phone: Start: 12-24-2024 CT of lumbar spine HAL CCA GUTHRIE Work Phone: Start: 12-24-2024 Urine culture SILVIA P ATEL Work Phone: Start: 11-24-2024 Estimated creatinine clearance SILVIA GUTHRIE Work Phone: Start: 11-22-2024 Serum inorganic phos phate measurement SILVIA GUTHRIE Work Phone: Start: 11-17-2024 CT of chest, abdomen and pelvis without contrast SILVIA GUTHRIE Work Phone: Start: 11-17-2024 Plain chest X-ray REBEC CA GUTHRIE Work Phone: Start: 11-17-2024 Plain x-ray of pelvi s and lower extremity SILVIA GUTHRIE Work Phone: Start: 11-17-2024 Bacterial nucleic ac id assay SILVIA GUTHRIE Work Phone: Start: 11-17-2024 Blood culture SILVIA P ATEL Work Phone: Start: 11-17-2024 Legionella pneumophi la antigen assay SILVIA GUTHRIE Work Phone: Start: 11-17-2024 Nucleic acid assay HAL CCA GUTHRIE Work Phone: Start: 11-17-2024 SARS-CoV-2, Influenz a & RSV (PCR) SILVIA GUTHRIE Work Phone: Start: 11-17-2024 End: 11-17-2024 Streptococcus pneumoniae antigen assay SILVIA GUTHRIE Work Phone: Start: 11-17-2024 Urnls dip stick/tabl et reagent auto microscopy SILVIA GUTHRIE Work Phone: Start: 07-11-2024 Us abdominal real ti me w/image limited Ana Meza APRAlokACCOUNT MANAGER TRAINEE Work Phone: Start: 01-17-2024 Adult depression screening assessment Keely Givens MD Work Phone: Start: 11-26-2023 STREP A MOLECULAR (POC) [facility] Provider Start: 06-16-2023 Co diffusing capacity E shruthi Givens MD Work Phone: Start: 11-21-2022 CBC + DIFF [facility] Provid er Start: 11-16-2022 Radiologic exam swal low function contrast study Karen Bae PA-C Work Phone: Start: 10-14-2022 Brncdilat rspse spmt ry pre&post-brncdilat admn Loanabdon Madrigal PA-C Work Phone: Start: 10-14-2022 Radiologic exam esop hagus single contrast study Loan Adeline Madrigal PA-C Work Phone: Start: 07-05-2022 H/O: artificial joint History of right shoulder replacement Giselle Elizondo MD Work Phone: Start: 04-12-2022 X-ray of cervical spine Start: 02-09-2022 Ct head/brain w/o & w/contrast material Lexi Merino MD Work Phone: Start: 02-09-2022 Creatinine blood Darion chance Merino MD Work Phone: Start: 02-01-2022 Ct upper extremity w /o contrast material Malcom Giron MD Work Phone: Start: 12-23-2021 Investigation of transfusion reaction Start: 11-05-2021 Shoulder region stru cture (body structure) DR MALCOM GIRON MD Comment on above: RIGHT REVERSE TOTAL SHOULDER ARTHROLASTY Start: 04-02-2021 Mri upper extremity oth than jt w/o contr matrl Cedric Solomon MD Work Phone: Start: 02-11-2021 Echo tthrc r-t 2d w/wom-mode compl spec&colr d Nieves Frias MD Work Phone: Start: 12-11-2020 Radiologic exam ches t 2 views Nieves Frias MD Work Phone: Acid fast bacilli culture Appendectomy DR MALCOM Soliz MD Cholecystectomy DR MALCOM ALVARENGA MD Comment on above: x2 Cytopathology proced ure, preparation of smear, genital source Extraction of cataract DR ORTIZ POLANCO Comment on above: Right H/O: artificial joint Presence o f right artificial shoulder joint Malcom Giron MD Work Phone: Hysterectomy DR MALCOM Soliz MD Investigation of transfusion reaction Lumbar spinal fusion DR JOE GIRON MD Mycology culture Nasopharyngeal Culture Rectal prolapse (disorder) DR MALCOM GIRON MD Urinary bladder stru cture (body structure) DR MALCOM GIRON MD Plan of Treatment Date Care Activity Detail Author Start: 01-18-2027 Diabetes Screening Diabetes Screening [facility] Start: 11-05-2026 Diabetes Screening Diabetes Screening [facility] Start: 05-30-2026 Diabetes Screening Diabetes Screening [facility] Start: 01-23-2026 Creatinine measurement Creatinine Level [facility] Start: 01-23-2026 Potassium measurement Potassium Level [facility] Start: 11-03-2025 DIABETES SCREEN DIABETES SCREEN [facility] Start: 11-03-2025 Diabetes Screening Diabetes Screening [facility] Start: 10-28-2025 DIABETES SCREEN DIABETES SCREEN [facility] Start: 07-31-2025 End: 07-31-2025 Patient encounter procedure 07/31/2025 11:40 AM EST Office Visit [facility] Osteoporosis [facility] [address] [place] [address] Felecia Mercado, MAINFRAME SYSTEMS ENGINEER - ACCOUNT MANAGER TRAINEE [address] [facility] [address] [place] [address] [facility] Osteoporosis [facility] Start: 04-21-2025 Influenza vaccination Influenza Vaccine (Season Ended) [facility] Start: 01-23-2025 End: 07-23-2025 25-hydroxyvitamin D3 [Mass/volume] in Serum or Plasma Vitamin D Deficiency Screening (Vit D 25) Lab Routine Age-related osteoporosis without current pathological fracture Postmenopausal History of fragility fracture Expected: 01/23/2025 (Approximate), Expires: 07/23/2025 [facility] Comment on above: Expected: 01/23/2025 (Approximate), Expi res: 07/23/2025 Start: 01-23-2025 End: 07-23-2025 Collagen Type I C-Telopeptide (CTx) Collagen Type I C-Telopeptide (CTx) Lab Routine Age-related osteoporosis without current pathological fracture Postmenopausal History of fragility fracture Expected: 01/23/2025 (Approximate), Expires: 07/23/2025 [facility] Comment on above: Expected: 01/23/2025 (Approximate), Expi res: 07/23/2025 Start: 01-23-2025 End: 07-23-2025 Comprehensive metabolic 1998 panel - Serum or Plasma Comprehensive metabolic panel Lab Routine Age-related osteoporosis without current pathological fracture Postmenopausal History of fragility fracture Expected: 01/23/2025 (Approximate), Expires: 07/23/2025 [facility] Work Phone: Comment on above: Expected: 01/23/2025 (Approximate), Expi res: 07/23/2025 Start: 01-23-2025 End: 01-21-2026 DXA Skeletal system.axial Views for bone density DEXA bone density axial skeleton Imaging Routine Age-related osteoporosis without current pathological fracture Postmenopausal History of fragility fracture Expected: 01/23/2025, Expires: 01/21/2026 [employer] Comment on above: Expected: 01/23/2025, Expires: Start: 01-23-2025 End: 07-23-2025 Magnesium [Mass/volume] in Serum or Plasma Magnesium Lab Routine Age-related osteoporosis without current pathological fracture Postmenopausal History of fragility fracture Expected: 01/23/2025 (Approximate), Expires: 07/23/2025 [employer] Comment on above: Expected: 01/23/2025 (Approximate), Expi res: 07/23/2025 Start: 01-23-2025 End: 07-23-2025 Parathyrin.intact [Mass/volume] in Serum or Plasma PTH, intact Lab Routine Age-related osteoporosis without current pathological fracture Postmenopausal History of fragility fracture Expected: 01/23/2025 (Approximate), Expires: 07/23/2025 [employer] Comment on above: Expected: 01/23/2025 (Approximate), Expi res: 07/23/2025 Start: 01-23-2025 End: 01-21-2026 PROCOLLAGEN TYPE I INTACT N TERMINAL PROPEPTIDE PROCOLLAGEN TYPE I INTACT N TERMINAL PROPEPTIDE Lab Routine Age-related osteoporosis without current pathological fracture Postmenopausal History of fragility fracture Expected: 01/23/2025 (Approximate), Expires: 01/21/2026 [employer] [facility] Comment on above: Expected: 01/23/2025 (Approximate), Expi res: 01/21/2026 Start: 01-23-2025 End: 01-21-2026 Protein, Total and Protein Electrophoresis [facility] Comment on above: Expected: 01/23/2025 (Approximate), Expi res: 01/21/2026 Start: 01-23-2025 End: 07-23-2025 Thyrotropin [Units/volume] in Serum or Plasma TSH Lab Routine Age-related osteoporosis without current pathological fracture Postmenopausal History of fragility fracture Expected: 01/23/2025 (Approximate), Expires: 07/23/2025 [facility] Comment on above: Expected: 01/23/2025 (Approximate), Expi res: 07/23/2025 Start: 01-16-2025 Anxiety Screening Anxiety Screening [facility] Start: 01-16-2025 Depression Screening Depression Screening [facility] Start: 01-14-2025 X-ray of lumbar spine, two or three views Lumbar Spine 2 or 3 Views [facility] Start: 01-14-2025 XR Lumbar spine 2 or 3 Views [facility] Start: 01-01-2025 Patient discharge [facility] Start: 12-31-2024 Referral to service [facility] Start: 12-28-2024 Care planning and problem solving actions [facility] Start: 12-27-2024 Inhalation therapy procedure [facility] Start: 12-25-2024 [facility] Start: 12-25-2024 Consultation [facility] Start: 12-25-2024 Consultation for pain [facility] Start: 12-24-2024 Following clinical pathway protocol [facility] Start: 12-24-2024 Assessment of risk of venous thromboembolism [facility] Start: 12-24-2024 Incentive spirometry [facility] Start: 12-24-2024 Insertion of catheter into peripheral vein [facility] Start: 12-24-2024 Measuring intake and output [facility] Start: 12-24-2024 Oxygen therapy [facility] Start: 12-24-2024 Providing care according to standard [facility] Start: 12-24-2024 Provision of activity privileges [facility] Start: 12-24-2024 Referral to occupational therapist [facility] Start: 12-24-2024 Referral to service [facility] Start: 12-24-2024 Urinalysis complete panel - Urine [facility] Start: 12-24-2024 End: 12-24-2024 [facility] Start: 12-24-2024 MRI of lumbar spine Spine Lumbar (Routine) [facility] Start: 12-24-2024 Verification routine [facility] Start: 12-24-2024 Admission procedure [facility] Start: 12-24-2024 Hospital admission, emergency, from emergency room, medical nature [facility] Start: 12-24-2024 Thyroid stimulating hormone measurement [facility] Start: 12-24-2024 End: 12-25-2024 [facility] Start: 12-24-2024 Consultation [facility] Start: 12-24-2024 Patient referral to dietitian [facility] Start: 12-18-2024 End: 12-18-2024 Patient encounter procedure [facility] Comment on above: 3m f/up Start: 12-11-2024 End: 10-12-2025 CT Chest WO contrast CT CHEST [facility] Radiology Routine Lung nodules Expected: 12/11/2024, Expires: 10/12/2025 [facility] Work Phone: Comment on above: Expected: 12/11/2024, Expires: Start: 12-11-2024 End: 12-11-2024 Patient encounter procedure 12/11/2024 11:00 AM EDT Appointment Cat Scan [address] [place] [address] Lung nodules [R91.8] Cat Scan Comment on above: Lung nodules [R91.8] Start: 11-24-2024 Patient discharge [facility] Start: 11-21-2024 Removal of urinary catheter [facility] Start: 11-19-2024 Referral to director metabolism [facility] Start: 11-18-2024 Consultation for pain [facility] Start: 11-18-2024 Implementation of planned interventions [facility] Start: 11-18-2024 Notification of physician [facility] Start: 11-18-2024 Speech therapy assessment [facility] Start: 11-18-2024 Application of abdominal corset [facility] Start: 11-17-2024 Care of central venous catheter [facility] Start: 11-17-2024 Following clinical pathway protocol [facility] Start: 11-17-2024 Assessment of risk of venous thromboembolism [facility] Start: 11-17-2024 Catheterization of vein [facility] Start: 11-17-2024 Elevation of head of bed [facility] Start: 11-17-2024 Inhalation therapy procedure [facility] Start: 11-17-2024 Insertion of catheter into peripheral vein [facility] Start: 11-17-2024 Measuring intake and output [facility] Start: 11-17-2024 Notification of physician [facility] Start: 11-17-2024 Oxygen therapy [facility] Start: 11-17-2024 Patient education [facility] Start: 11-17-2024 Providing care according to standard [facility] Start: 11-17-2024 Referral to occupational therapist [facility] Start: 11-17-2024 Referral to service [facility] Start: 11-17-2024 Vital signs measurements [facility] Start: 11-17-2024 [facility] Start: 11-17-2024 Verification routine [facility] Start: 11-17-2024 Admission procedure [facility] Start: 11-17-2024 Hospital admission, emergency, from emergency room, medical nature [facility] Start: 11-17-2024 Bacteria identified in Blood by Culture Blood Culture [facility] Start: 11-17-2024 End: 11-17-2024 [facility] Start: 11-17-2024 Consultation [facility] Start: 11-17-2024 Consultation [facility] Start: 11-17-2024 Patient referral to dietitian [facility] Start: 11-17-2024 [facility] Start: 09-17-2024 End: 09-17-2025 DXA Skeletal system.axial Views for bone density DEXA bone density axial skeleton Imaging Routine Asymptomatic menopausal state Expected: 09/17/2024, Expires: 09/17/2025 [facility] Work Phone: Comment on above: Expected: 09/17/2024, Expires: Start: 09-17-2024 End: 09-17-2026 US Heart Transthoracic Transthoracic echocardiogram (TTE) complete with contrast, bubble, strain, and 3D PRN CV Echocardiography Routine Cardiac murmur, unspecified Expected: 09/17/2024 (Approximate), Expires: 09/17/2026 [facility] Work Phone: Comment on above: Expected: 09/17/2024 (Approximate), Expi res: 09/17/2026 Start: 09-12-2024 End: 09-12-2024 Patient encounter procedure Cat Scan Comment on above: Lung nodules [R91.8]; Ground glass opaci ty present on imaging of lung [R91.8] follow up from CT sc an Start: 08-21-2024 Advance Directive Discussion Advance Directive Discussion [facility] Start: 08-21-2024 Medicare Advantage Annual Wellness Visit Medicare Advantage Annual Wellness Visit [facility] Start: 08-05-2024 End: 08-05-2024 Patient encounter procedure 08/05/2024 11:00 AM EST Appointment Cat Scan [address] [place] [address] Lung nodules [R91.8]; Ground glass opacity present on imaging of lung [R91.8] Cat Scan Comment on above: Lung nodules [R91.8]; Ground glass opaci ty present on imaging of lung [R91.8] Start: 07-31-2024 End: 02-28-[address]25 CT Chest WO contrast CT CHEST WO IVCON Radiology Routine Lung nodules Ground glass opacity present on imaging of lung Expected: 07/31/2024, Expires: 02/28/2025 [facility] Work Phone: Comment on above: Expected: 07/31/2024, Expires: Start: 07-26-2024 End: 07-26-2024 Patient encounter procedure 07/26/2024 11:00 AM EST Appointment Radiology [address] [place] [address] Pancreatic cyst [K86.2] Radiology Comment on above: Pancreatic cyst [K86.2] Start: 07-11-2024 End: 07-11-2024 Patient encounter procedure 07/11/2024 10:00 AM EST Appointment Radiology [address] [place] [address] Epigastric pain [R10.13] Radiology Comment on above: Epigastric pain [R10.13] Start: 07-10-2024 End: 07-10-2024 Patient encounter procedure 07/10/2024 10:00 AM EST Office Visit Family Practice [address] [facility] [place] [address] Ana Meza, MAINFRAME SYSTEMS ENGINEER.[facility] [address] [facility] [address] [place] [address] pain in between breasts past few weeks [facility] Comment on above: pain in between breasts past few weeks Start: 05-29-2024 End: 05-29-2024 Patient encounter procedure 05/29/2024 11:00 AM EDT Office Visit [facility] [address] [place] [address] Giselle Elizondo MD [address] [facility] [place] [address] Rib pain - see triage [facility] Comment on above: Rib pain - see triage Start: 04-29-2024 End: 04-29-2024 Patient encounter procedure 04/29/2024 11:00 AM EDT Office Visit Pulmonary Medicine [address] [place] [address] Keely Givens MD [address] [place], [place] [id number] 4 MO OV [facility] Comment on above: 4 MO OV Start: 04-21-2024 COVID-19 Vaccine ( season) COVID-19 Vaccine ( season) [facility] Start: 04-21-2024 COVID-19 Vaccine ( season) COVID-19 Vaccine ( season) [facility] Start: 04-21-2024 Covid-19 Vaccine ( season) Covid-19 Vaccine ( season) [facility] Start: 04-21-2024 Covid-19 Vaccine ( season) Covid-19 Vaccine ( season) [facility] Start: 04-21-2024 Influenza vaccination Influenza Vaccine (#1) [facility] Start: 03-21-2024 DIABETES SCREEN DIABETES SCREEN [facility] Start: 01-19-2024 End: 01-19-2024 Patient encounter procedure 01/19/2024 11:00 AM EDT Appointment [facility] [address] [place] [phone] [facility] Comment on above: CT Start: 01-17-2024 End: 01-17-2024 Patient encounter procedure 01/17/2024 1:40 PM EDT Office Visit [address] [place] [id number] Giselle Elizondo MD [address] [place] [address] [place] [address] medicare wellness [facility] Comment on above: medicare wellness Start: 01-10-2024 End: 04-10-2024 Comprehensive metabolic 2000 panel - Serum or Plasma COMPREHENSIVE METABOLIC PANEL Lab Routine Hypokalemia Expected: 01/10/2024, Expires: 04/10/2024 [facility] Work Phone: Comment on above: Expected: 01/10/2024, Expires: 4 Start: 01-02-2024 End: 04-02-2024 CBC panel - Blood by Automated count COMPLETE BLOOD COUNT Lab Routine Medication management Expected: 01/02/2024, Expires: 04/02/2024 [facility] Work Phone: Comment on above: Expected: 01/02/2024, Expires: Start: 11-29-2023 SHINGRIX VACCINE (1 of 2) SHINGRIX VACCINE (1 of 2) [facility] Comment on above: Postponed from 1960 (Declined at t his time) Postponed from 03/31 (Declined at this time) Start: 11-29-2023 Urine microalbumin profile [facility] Comment on above: Postponed from 1960 (Declined at t his time) Start: 11-03-2023 End: 02-02-2024 Comprehensive metabolic 2000 panel - Serum or Plasma COMP METABOLIC PANEL Lab Routine HTN (hypertension), benign Hyperglycemia Expected: 11/03/2023, Expires: 02/02/2024 [facility] Work Phone: Comment on above: Expected: 11/03/2023, Expires: Start: 11-03-2023 End: 02-02-2024 Hemoglobin A1c in Blood HGB A1C Lab Routine Hyperglycemia Expected: 11/03/2023, Expires: 02/02/2024 [facility] Work Phone: Comment on above: Expected: 11/03/2023, Expires: Start: 11-03-2023 End: 02-02-2024 Thyrotropin [Units/volume] in Serum or Plasma TSH BLD Lab Routine Chronic constipation Expected: 11/03/2023, Expires: 02/02/2024 [facility] Work Phone: Comment on above: Expected: 11/03/2023, Expires: Start: 10-24-2023 Covid-19 Vaccine () Covid-19 Vaccine () [facility] Start: 08-21-2023 Advance Directive Discussion Advance Directive Discussion [facility] Start: 08-21-2023 Behavioral Health Screening Behavioral Health Screening [facility] Start: 08-21-2023 Depression Assessment Depression Assessment [facility] Start: 08-21-2023 Medicare Advantage Annual Wellness Visit Medicare Advantage Annual Wellness Visit [facility] Start: 06-08-2023 End: 06-08-2023 Patient encounter procedure 06/08/2023 1:40 PM EDT Office Visit [facility] [address] [place] [id number] Loan Madrigal PA-C [address] [place], [place] [phone] [facility] Start: 05-25-2023 Subsequent hospital visit by physician 05/25/2023 3:45 PM EDT Hospital Encounter [facility] [address] [place] [address] Loan Madrigal PA-C [address] [place], [place] [phone] [facility] Start: 05-22-2023 End: 07-22-2023 CREATININE BLD CREATININE BLD Lab Routine BRBPR (bright red blood per rectum) Chronic constipation Abnormal weight loss Abdominal distension (gaseous) Other constipation Nausea Expected: 05/22/2023, Expires: 07/22/2023 [facility] Work Phone: Comment on above: Expected: 05/22/2023, Expires: 3 Start: 05-17-2023 End: 05-17-2024 CT Chest WO contrast CT chest wo IV contrast Imaging Routine Pulmonary fibrosis (HCC) Expected: 05/17/2023, Expires: 05/17/2024 [facility] Work Phone: Comment on above: Expected: 05/17/2023, Expires: 4 Start: 04-21-2023 End: 06-21-2023 Basic metabolic 2000 panel - Serum or Plasma BASIC METABOLIC PNL Lab Routine Hypokalemia Expected: 04/21/2023, Expires: 06/21/2023 [facility] Work Phone: Comment on above: Expected: 04/21/2023, Expires: 3 Start: 04-21-2023 COVID-19 Vaccine ( season) COVID-19 Vaccine ( season) [facility] Start: 04-21-2023 Covid-19 Vaccine ( season) Covid-19 Vaccine ( - season) [facility] Start: 04-21-2023 Influenza vaccination [facility] Start: 02-01-2023 Covid-19 Vaccine (6 - Moderna series) Covid-19 Vaccine (6 - Moderna series) [facility] Start: 01-11-2023 End: 01-11-2023 Admission to same day surgery center 01/11/2023 Surgery Gastroenterology Miguel Ángel Rea MD [address] [place] [address] [place] [address] EGD WITH BIOPSY [82854 (CPT )] [facility] Comment on above: EGD WITH BIOPSY [14192 (CPT )] Start: 01-11-2023 End: 01-11-2023 Egd transoral biopsy single/multiple EGD WITH BIOPSY Dysphagia, unspecified 01/11/2023 12:15 PM EDT [facility] Start: 01-11-2023 End: 01-11-2023 Esophageal motility study w/interp&rpt ESOPHAGUS MOTILITY STUDY Dysphagia, unspecified 01/11/2023 12:15 PM EDT [facility] Start: 01-11-2023 Subsequent hospital visit by physician 01/11/2023 Hospital Encounter Gastroenterology Miguel Ángel Rea MD [address] [place], [place] [id number] [facility] [address] [facility] Start: 12-28-2022 End: 12-28-2022 Patient encounter procedure 12/28/2022 Appointment Radiology [facility] Start: 11-01-2022 End: 01-01-2023 Hemoglobin A1c in Blood HGB A1C Lab Routine Hyperglycemia Expected: 11/01/2022, Expires: 01/01/2023 [facility] Work Phone: Comment on above: Expected: 11/01/2022, Expires: Start: 10-27-2022 End: 10-27-2022 Patient encounter procedure 10/27/2022 Office Visit General Surgery Miguel Ángel Rea MD [address] [place] [address] [facility] Start: 10-26-2022 End: 12-26-2022 CBC panel - Blood by Automated count CBC Lab Routine Cervical spondylosis Chronic atrial fibrillation (HCC) Expected: 10/26/2022, Expires: 12/26/2022 [facility] Work Phone: Comment on above: Expected: 10/26/2022, Expires: 3 Start: 10-26-2022 End: 12-26-2022 Comprehensive metabolic 2000 panel - Serum or Plasma COMP METABOLIC PANEL Lab Routine Chronic atrial fibrillation (HCC) Expected: 10/26/2022, Expires: 12/26/2022 [facility] Work Phone: Comment on above: Expected: 10/26/2022, Expires: 3 Start: 10-26-2022 End: 12-26-2022 Lipid 1996 panel - Serum or Plasma LIPID PANEL BASIC Lab Routine Screening for lipid disorders Expected: 10/26/2022, Expires: 12/26/2022 [facility] Work Phone: Comment on above: Expected: 10/26/2022, Expires: 3 Start: 10-26-2022 End: 12-26-2022 Thyrotropin [Units/volume] in Serum or Plasma TSH BLD Lab Routine Chronic atrial fibrillation (HCC) Essential hypertension Expected: 10/26/2022, Expires: 12/26/2022 [facility] Work Phone: Comment on above: Expected: 10/26/2022, Expires: 3 Start: 10-20-2022 End: 10-21-2023 CT Chest WO contrast CT chest wo IV contrast Imaging Routine Lung nodule Pulmonary fibrosis (HCC) Expected: 10/20/2022, Expires: 10/21/2023 [facility] Work Phone: Comment on above: Expected: 10/20/2022, Expires: 4 Start: 10-14-2022 End: 10-14-2022 Patient encounter procedure [facility] X-ray Imaging Start: 09-20-2022 End: 09-20-2022 Telemedicine consultation with patient 09/20/2022 Telemedicine Pulmonology Loan Madrigal PA-C [address] [place] [id number] [facility] Start: 08-21-2022 ADVANCE DIRECTIVE DISCUSSION ADVANCE DIRECTIVE DISCUSSION [facility] Start: 08-21-2022 DEPRESSION ASSESSMENT DEPRESSION ASSESSMENT [facility] Start: 06-08-2022 Procedure [facility] Work Phone: Start: 05-27-2022 COVID-19 VACCINE (5 - Booster for Moderna series) COVID-19 VACCINE (5 - Booster for Moderna series) [facility] Start: 05-27-2022 COVID-19 Vaccine (5 - Moderna series) COVID-19 Vaccine (5 - Moderna series) [facility] Start: 04-26-2022 End: 04-26-2022 Patient encounter procedure 04/26/2022 Appointment Vascular Lab Lexi Merino MD [address] [place] [id number] [facility] Start: 04-21-2022 Influenza vaccination [facility] Start: 03-07-2022 [facility] Work Phone: Start: 12-23-2021 Nasopharyngeal Culture Nasopharyngeal Culture [facility] Work Phone: Start: 12-04-2021 COVID-19 Vaccine (4 - Booster for Moderna series) COVID-19 Vaccine (4 - Booster for Moderna series) [facility] Start: 08-21-2021 ADVANCE DIRECTIVE DISCUSSION ADVANCE DIRECTIVE DISCUSSION [facility] Start: 06-02-2021 End: 06-02-2021 Patient encounter procedure 06/02/2021 Office Visit Pulmonology Matheus Hoover, MAINFRAME SYSTEMS ENGINEER - ACCOUNT MANAGER TRAINEE [address] [address] [phone] [facility] Start: 04-21-2021 Influenza vaccination [facility] Work Phone: Start: 03-12-2021 Screening for osteoporosis Bone Density Scan [facility] Start: 12-10-2020 COVID-19 Vaccine (2 - Moderna 2-dose series) COVID-19 Vaccine (2 - Moderna 2-dose series) [facility] Work Phone: Start: 04-21-2020 Influenza vaccination [place], [place] Start: 02-11-2020 End: 02-11-[address] [facility] Start: 12-13-2019 Creatinine measurement Creatinine monitoring [facility], [place] Start: 12-13-2019 Potassium monitoring Potassium monitoring [place], [place] Start: 02-10-2019 Annual Wellness Visit (AWV) Annual Wellness Visit (AWV) [place], [place] Start: 2016 RSV Immunization for Adults (1 - 1-dose 75+ series) RSV Immunization for Adults (1 - 1-dose 75+ series) [facility] Start: 2016 RSV Vaccine (1 - 1-dose 75+ series) RSV Vaccine (1 - 1-dose 75+ series) [facility] Start: 2006 BONE DENSITY BONE DENSITY [facility] Start: 08-11-2006 Bone Density Screening Bone Density Screening [facility] Start: 2006 Pneumococcal 65+ years Vaccine (1 of 1 - PPSV23) Pneumococcal 65+ years Vaccine (1 of 1 - PPSV23) [place], [place] Start: 2006 PNEUMOCOCCAL: 65+ (1 - PCV) PNEUMOCOCCAL: 65+ (1 - PCV) [facility] Start: 2006 Screening for osteoporosis Bone Density Screening [facility] Start: 2001 RSV Immunization aged 60 or older (1 - 1-dose 60+ series) RSV Immunization aged 60 or older (1 - 1-dose 60+ series) [facility] Start: 2001 RSV Vaccine (1 - 1-dose 60+ series) RSV Vaccine (1 - 1-dose 60+ series) [facility] Start: 1991 Shingles Vaccine (1 of 2) Shingles Vaccine (1 of 2) [facility] Start: 1991 SHINGRIX VACCINE (1 of 2) SHINGRIX VACCINE (1 of 2) [facility] Start: 1991 Zoster Vaccines (1 of 2) Zoster Vaccines (1 of 2) [facility] Start: 1960 DTaP/Tdap/Td vaccine (1 - Tdap) DTaP/Tdap/Td vaccine (1 - Tdap) [facility] Start: 1960 DTaP/Tdap/Td Vaccines (1 - Tdap) DTaP/Tdap/Td Vaccines (1 - Tdap) [facility] Start: 1960 Pneumococcal Vaccine: 50+ (1 of 2 - PCV) Pneumococcal Vaccine: 50+ (1 of 2 - PCV) [facility] Start: 1960 Pneumococcal Vaccine: 50+ Years (1 of 2 - PCV) Pneumococcal Vaccine: 50+ Years (1 of 2 - PCV) [facility] Start: 1960 SHINGRIX VACCINE (1 of 2) SHINGRIX VACCINE (1 of 2) [facility] Start: 1960 Urine microalbumin profile [facility] Start: 1959 Diabetes mellitus screening Diabetes Screening [facility] Start: 1959 SPIROMETRY SPIROMETRY [facility] Start: 1957 COVID-19 Vaccine (1) COVID-19 Vaccine (1) [facility] Work Phone: Start: 1953 COVID-19 Vaccine (1) COVID-19 Vaccine (1) [facility] Work Phone: Start: 1953 Depression Monitoring Depression Monitoring [facility] Start: 1953 Depression Screen Depression Screen [facility] Start: 1953 Depression Screening Depression Screening [facility] Start: 1947 Pneumococcal 65+ years Vaccine (1 - PCV) Pneumococcal 65+ years Vaccine (1 - PCV) [facility] Start: 1947 Pneumococcal Vaccine: 65+ (1 - PCV) Pneumococcal Vaccine: 65+ (1 - PCV) [facility] Start: 1947 Pneumococcal Vaccine: 65+ (1 of 2 - PCV) Pneumococcal Vaccine: 65+ (1 of 2 - PCV) [facility] Start: 1947 Pneumococcal Vaccine: 65+ Years (1 - PCV) Pneumococcal Vaccine: 65+ Years (1 - PCV) [facility] Start: 1947 Pneumococcal Vaccine: 65+ Years (1 of 2 - PCV) Pneumococcal Vaccine: 65+ Years (1 of 2 - PCV) [facility] Start: 1947 PNEUMOCOCCAL: 65+ (1 - PCV) PNEUMOCOCCAL: 65+ (1 - PCV) [facility] Start: 1946 COVID-19 Vaccine (1) COVID-19 Vaccine (1) [facility] Start: 1941 COVID-19 VACCINE (#1) COVID-19 VACCINE (#1) [facility] Start: 1941 Annual Wellness Visit (AWV) Annual Wellness Visit (AWV) [facility] Start: 1941 Creatinine measurement Creatinine Level [facility] Start: 1941 Echocardiography Echocardiogram [facility] Start: 1941 Hepatitis B Vaccines (1 of 3 - 3-dose series) Hepatitis B Vaccines (1 of 3 - 3-dose series) [facility] Start: 1941 Lipid panel Lipid Panel [facility] Start: 1941 Medicare Advantage Annual Wellness Visit (AWV) Medicare Advantage Annual Wellness Visit (AWV) [facility] Start: 1941 Potassium measurement Potassium Level [facility] Start: 1941 Screening for osteoporosis Bone Density Scan [facility] Acid fast bacilli culture [facility] Work Phone: Anaerobic Culture Anaerobic Culture [facility] Work Phone: Bacteria identified in Unspecified specimen by Anaerobe culture [facility] Work Phone: Bacterial culture Body Fluid Culture [facility] Work Phone: Bilirubin measuremen t, urine [facility] Complete PFT study Complete PFT study PFT Routine Chronic obstructive pulmonary disease, unspecified COPD type (HCC) 10/14/2022 10:20 AM EST [facility] [employer] Work Phone: COVID & INFLUENZA A/ B & RSV NAAT, ROUTINE COVID & INFLUENZA A/B & RSV NAAT, ROUTINE Microbiology Routine URI, acute 11/26/2023 3:15 PM EDT [facility] Work Phone: End: 06-20-2024 Ct abdomen & pelvis w/contrast material CT ABD/PEL W IVCON Radiology Routine BRBPR (bright red blood per rectum) Chronic constipation Abnormal weight loss Abdominal distension (gaseous) Other constipation Nausea 1 Occurrences starting 05/22/2023 until 06/20/2024 [facility] Work Phone: Comment on above: 1 Occurrences starting 05/22/2023 until 06/20/2024 End: 05-17-2021 CT CHEST W CONTRAST CT CHEST W CONTRAST Imaging Routine Once for 1 Occurrences starting 05/17/2021 until 05/17/2021 [employer] Work Phone: Comment on above: Once for 1 Occurrences starting 05/17/20 21 until 05/17/2021 CT CHEST W CONTRAST CT CHEST W C ONTRAST Imaging Routine 05/17/2021 2:50 PM EDT [employer] Work Phone: End: 01-24-2020 CT CHEST WO CONTRAST CT CHEST WO CONTRAST Imaging Routine Once for 1 Occurrences starting 01/24/2020 until 01/24/2020 [employer] [place] Comment on above: Once for 1 Occurrences starting 01/24/20 20 until 01/24/2020 CT CHEST WO CONTRAST CT CHEST WO CONTRAST Imaging Routine 01/24/2020 11:18 AM EDT [employer] [place], [place] End: 01-26-2025 CT Chest WO contrast CT CHEST WO IVCON Radiology Routine 1 Occurrences starting 12/28/2023 until 01/26/2025 [facility] Work Phone: Comment on above: 1 Occurrences starting 12/28/2023 until 01/26/2025 CT Chest WO contrast CT CHEST WO IVCON Radiology Routine 01/19/2024 10:56 AM EDT [facility] Work Phone: CT Chest WO contrast CT CHEST WO IVCON Radiology Routine Lung nodules Ground glass opacity present on imaging of lung 09/12/2024 11:48 AM EST [facility] Work Phone: Folate [Moles/volume ] in Serum or Plasma [facility] Hemoglobin [Presence ] in Urine [facility] Influenza virus A an d B RNA and SARS-CoV-2 (COVID-19) N gene panel - Respiratory specimen by MATY with probe detection COVID WITH FLUA+B, ROUTINE Microbiology Routine Viral URI with cough Ordered: 07/11/2022 [facility] Work Phone: Comment on above: Ordered: 07/11/2022 Lactic acid measurement [facility] Magnesium measurement [facility] Measurement of keton es in urine using dipstick [facility] Microscopic urinalysis [facility] End: 08-09-2025 MR Biliary ducts and Pancreatic duct WO and W contrast IV MRI PANC/IRVING WO/W IVCON Radiology Routine Pancreatic cyst 1 Occurrences starting 07/10/2024 until 08/09/2025 [facility] Work Phone: Comment on above: 1 Occurrences starting 07/10/2024 until 08/09/2025 End: 08-09-2025 MR Unspecified body region 3D post processing MRI 3D POST PROCESSING Radiology Routine Pancreatic cyst 1 Occurrences starting 07/10/2024 until 08/09/2025 [facility] Comment on above: 1 Occurrences starting 07/10/2024 until 08/09/2025 MRI 3D POST PROCESSING MRI 3D PO ST PROCESSING Radiology Routine Pancreatic cyst 07/20/2023 12:16 PM EST [facility] Work Phone: Mri abdomen w/o & w/contrast material MRI PANC/IRVING WO/W IVCON Radiology Routine Pancreatic cyst 07/20/2023 12:16 PM EST [facility] Work Phone: Mycobacterium sp identified in Unspecified specimen by Organism specific culture [facility] Work Phone: OUTSIDE PROCEDURE SCAN OUTSIDE P ROCEDURE SCAN Procedures Ordered: 02/20/2023 [facility] Comment on above: Ordered: 02/20/2023 OUTSIDE PROCEDURE SCAN OUTSIDE P ROCEDURE SCAN Procedures Ordered: 05/24/2023 [facility] Comment on above: Ordered: 05/24/2023 Patient referral [facility] Work Phone: pH of Urine [facility] Procedure [facility] Work Phone: RAPID STREP TEST B/O RAPID STREP TEST B/O Lab Routine URI, acute Ordered: 11/26/2023 [facility] Work Phone: Comment on above: Ordered: 11/26/2023 Serum Electrophoresis Serum Elec trophoresis Lab Routine Age-related osteoporosis without current pathological fracture Postmenopausal History of fragility fracture 01/23/2025 10:14 AM EDT [facility] Specific gravity of Urine [facility] Urine blood test [facility] Urine dipstick for glucose [facility] Urine dipstick for leukocyte esterase [facility] Urine dipstick for nitrite [facility] Urine dipstick for protein [facility] Urine examination [facility] Urine microscopy: epithelial cells [facility] Urine Microscopy: wh ite cells [facility] Urobilinogen [Presen ce] in Urine [facility] End: 08-09-2025 US Abdomen RUQ US ABD RIGHT UPPER QUADRANT Radiology STAT Epigastric pain 1 Occurrences starting 07/10/2024 until 08/09/2025 [facility] Comment on above: 1 Occurrences starting 07/10/2024 until 08/09/2025 End: 04-20-2022 XR KNEE RIGHT (MIN 4 VIEWS) [facility] Work [facility]: Comment on above: Once for 1 Occurrences starting 04/20/20 22 until 04/20/2022 End: 06-28-2025 XR Ribs - left 2 Views XR RIBS 2V AP/OBL LEFT Radiology Routine Closed fracture of multiple ribs of left side, sequela Chronic left-sided thoracic back pain 1 Occurrences starting 05/29/2024 until 06/28/2025 [facility] Comment on above: 1 Occurrences starting 05/29/2024 until 06/28/2025 XR Ribs - left 2 Views XR RIBS 2 V AP/OBL LEFT Radiology Routine Closed fracture of multiple ribs of left side, sequela Chronic left-sided thoracic back pain 05/29/2024 4:43 PM EDT [facility] End: 06-28-2025 XR Thoracic spine AP and Lateral and Swimmers XR THORACIC GENERAL 3V AP/LAT/SWIMMERS Radiology Routine Closed fracture of multiple ribs of left side, sequela Chronic left-sided thoracic back pain 1 Occurrences starting 05/29/2024 until 06/28/2025 [facility] Work Phone: Comment on above: 1 Occurrences starting 05/29/2024 until 06/28/2025 XR Thoracic spine AP and Lateral and Swimmers XR THORACIC GENERAL 3V AP/LAT/SWIMMERS Radiology Routine Closed fracture of multiple ribs of left side, sequela Chronic left-sided thoracic back pain 05/29/2024 4:43 PM EDT [facility] Immunizations Immunization Date Immunization Notes Care Provider [facility] 09-16-2024 influenza, high dose seasonal, preservative-free SILVIA GUTHRIE Work Phone: [facility] 09-16-2024 Pneumococcal Vaccine PCV20 (Prevnar 20) SILVIA GUTHRIE Work Phone: [facility] 06-25-2023 Covid (Spikevax) SILVIA MORENO Work Phone: [facility] 06-25-2023 influenza (aIIV4) vaccine, age 65+ yr, quadrivalent, PF (FLUAD QUAD) Giselle Elizondo MD Work Phone: [facility] 06-25-2023 influenza virus vaccine, unspecified formulation Giselle Elizondo MD Work Phone: [facility] 10-04-2022 COVID-19 booster vaccine, age 12+ yr, bivalent (MODERNA) Giselle Elizondo MD Work Phone: [facility] 06-04-2022 influenza (aIIV4) vaccine, age 65+ yr, quadrivalent, PF (FLUAD QUADRIVALENT) Giselle Elizondo MD Work Phone: [facility] 06-04-2022 influenza virus vaccine, unspecified formulation [facility] 08-05-2021 SARS-CoV-2 (COVID-19 ) mRNA-1273 vaccine [facility] MAINFRAME SYSTEMS ENGINEER-ACCOUNT MANAGER TRAINEE [facility] 06-23-2021 influenza nasal, unspecified formulation Giselle Elizondo MD Work Phone: [facility] 06-23-2021 influenza virus vaccine, unspecified formulation [facility] MAINFRAME SYSTEMS ENGINEER-ACCOUNT MANAGER TRAINEE [facility] 06-23-2021 influenza, high-dose , quadrivalent vaccine (FLUZONE HIGH DOSE QUADRIVALENT) Giselle Elizondo MD Work Phone: [facility] 12-10-2020 SARS-CoV-2 (COVID-19 ) mRNA-1273 vaccine [facility] MAINFRAME SYSTEMS ENGINEER-ACCOUNT MANAGER TRAINEE [facility] Comment on above: Result Comment: 2021: [id number] 11-12-2020 SARS-CoV-2 (COVID-19 ) mRNA-1273 vaccine [facility] MAINFRAME SYSTEMS ENGINEER-ACCOUNT MANAGER TRAINEE [facility] Comment on above: Result Comment: 2021: [id number] 05-14-2020 unknown vaccine or immune globulin Giselle Elizondo MD Work Phone: [facility] 05-18-2019 influenza nasal, unspecified formulation Giselle Elizondo MD Work Phone: [facility] 05-18-2019 influenza virus vaccine, unspecified formulation RUBY MARIE MAINFRAME SYSTEMS ENGINEER-ACCOUNT MANAGER TRAINEE [facility] 05-18-2019 influenza, injectabl e, quadrivalent, preservative free Giselle Elizondo MD Work Phone: [facility] Payers Date Payer Category Payer Medicaid [id number] 2024 Medicare (Managed Care) 1.2. [id number] 2024 Medicare HMO UHC DUAL COMPLET E [id number] 2024 Unknown [id number] 2024 Self-pay [id number] 2020 Medicare [id number]. [id number] 2017 Medicaid [id number]. [id number] 2016 Private Health Insurance [id number] 2014 Medicare UHC MEDICARE UHC MEDICARE COMPLETE xxxxxxxxx 2014-Present xxxxxxxxx [id number] 2014 Medicare [id number]. [id number] 1941 Unknown [id number] 2.16.840.1.785289.3.579.2. 594 Medicare [id number] Private Health Insurance Unknown [id number] 2..840.1.422594.3.579.2. 462 Unknown [id number] 2.840.1.154182.3.579.2. 462 Unknown [id number] 2.840.1.176630.3.579.2. 462 Unknown [id number] 2.16840.1.983322.3.579.2. 462 Unknown [id number] 2.16840.1.360951.3.579.2. 462 Unknown [id number] 2.16840.1.289942.3.579.2. 462 Unknown [id number] 2.16.840.1.310109.3.579.2. 462 Unknown [id number] 2.16840.1.134993.3.579.2. 462 Unknown [id number] 2.16.840.1.876231.3.579.2. 462 Unknown [id number] 2.16.840.1.692456.3.579.2. 462 Unknown [id number] 2.16.840.1.567251.3.579.2. 462 Unknown [id number] 2.16.840.1.545357.3.579.2. 462 Unknown [id number] 2.16840.1.032406.3.579.2. 462 Unknown [id number] 2.16.840.1.509878.3.579.2. 462 Unknown [id number] 2.16.840.1.311893.3.579.2. 462 Unknown [id number] 2.16.840.1.565868.3.579.2. 462 Unknown [id number] 2.16.840.1.611325.3.579.2. 462 Unknown [id number] 2.16.840.1.469702.3.579.2. 462 Unknown [id number] 2.16840.1.454946.3.579.2. 462 Unknown [id number] 2.16840.1.742715.3.579.2. 462 Unknown [id number] 2.840.1.689293.3.579.2. 462 Unknown [id number] 2.840.1.462886.3.579.2. 462 Unknown [id number] 2.840.1.928063.3.579.2. 462 Unknown [id number] 2.840.1.456125.3.579.2. 462 Unknown [id number] 2.840.1.171095.3.579.2. 462 Unknown [id number] 2.840.1.366354.3.579.2. 462 Unknown [id number] 2.16840.1.494304.3.579.2. 462 Unknown [id number] 2.16840.1.060875.3.579.2. 462 Unknown [id number] 2.16840.1.710207.3.579.2. 462 Unknown [id number] 2.16840.1.953965.3.579.2. 462 Unknown [id number] 2.16.840.1.251313.3.579.2. 462 Unknown [id number] 2.16840.1.623113.3.579.2. 462 Unknown [id number] 2.16.840.1.321779.3.579.2. 462 Unknown [id number] 2.16.840.1.807540.3.579.2. 462 Social History Date Type Detail Facility Start: 09-11-2018 End: 06-07-2024 Tobacco [facility] status [facility] Start: [birth year]-[facility]1958 End: 05-29-1976 [facility]: [facility] End: 05-29-1976 History of tobacco use [facility] Start: 09-11-2018 End: 01-23-2025 Cigarettes smoked current (pack per day) - Reported [facility] Work Phone: Start: 09-11-2018 End: 01-23-2025 Alcohol intake Current non-drinker of alcohol (finding) [facility] Start: 1940 Sex Assigned At [facility] Start: 09-11-2018 End: 06-07-2024 Tobacco use and exposure Never used [facility] Sex Assigned At [facility] Start: 06-26-2021 Tobacco smoking stat [facility] Unknown if ever smoked [facility] Start: 1940 Sex Assigned At Female [facility] Start: 04-29-2022 End: 05-09-2022 Exposure to SARS-CoV-2 (event) Unable to assess [facility] Start: 07-01-2022 End: 02-20-2023 Exposure to SARS-CoV-2 (event) Not sure [facility] Start: 10-27-2022 End: 01-23-2025 Tobacco use panel [facility] Work Phone: Adult Depression Screening Assessment 2 [facility] Work Phone: Start: 05-22-2023 End: 10-03-2024 Alcohol intake Ex-drinker (finding) [facility] Start: 03-21-2022 End: 11-17-2024 Sex Female (finding) [facility] NEGATED: Highlighted row Not [facility] Medical Equipment Procedure Code Equipment Code Equipment Origin al Text Equipment Identifier Dates Kyphoplasty Orthopaedic ceme nt preparation/delivery kit [id number] FDA Start: 12-30-2024 Goals Date Patient Goal Desired Activity /State Functional Status Date Assessment Result Facility 01-01-2025 Functional status Patient Activity Chair [facility] Work Phone: 01-01-2025 Functional status Activity Abili ty Standby Assist [facility] Work Phone: 12-31-2024 Functional status [facility] Work Phone: 11-24-2024 Functional status Ambulates;Chair [facility] Work Phone: Mental Status Date Assessment Result Facility 01-01-2025 Cognitive function Voice/Name [facility] Work Phone: 11-23-2024 Cognitive function Voice/Name [facility] Work Phone: Clinical Notes 11-02-2021 to 01-31-2025 Telephone Encounter - Avis Anthony - 01/31/2025 5:31 PM EDTTelephone Encounter - Avis Anthony - 01/31/2025 5:31 PM Anabelle Mercado APRN - ACCOUNT MANAGER TRAINEE - 01/23/2025 9:00 AM EDTAttachments Note Date & Type Note Facility 01-31-2025 Telephone encounter Note Form atting of this note might be different from the original. Name of caller: Kaye ([facility]) Contact phone number: [phone] Relationship to Patient: na Provider: Dr. Guthrie Practice: [facility] Chief Complaint/Reason for Call: Calling to advise after several attempts to contact Pt for OT appt this week. Kaye was unable to reach patient for visit. Please advise Best time of day caller can be reached: Any AM Patient advised that office/PCP has 24-48 business hours to return their call: N/A [facility] 01-31-2025 Miscellaneous Notes Formattin g of this note might be different from the original. Name of caller: Kaye ([facility]) Contact phone number: [phone] Relationship to Patient: layla Provider: Dr. Guthrie Practice: [facility] Chief Complaint/Reason for Call: Calling to advise after several attempts to contact Pt for OT appt this week. Kaye was unable to reach patient for visit. Please advise Best time of day caller can be reached: Any AM Patient advised that office/PCP has 24-48 business hours to return their call: N/A documented in this encounter [facility] 01-23-2025 History of Presen t illness Narrative Images from the original note were not included. [facility] - [address] [facility] [place] [address] Dept: [phone] Dept Loc: [phone] Visit type: New patient Reason for Visit: Osteoporosis Assessment and Plan 1. Age-related osteoporosis without current pathological fracture - Comprehensive metabolic panel - Vitamin D Deficiency Screening (Vit D 25) - TSH - PTH, intact - Magnesium - Protein, Total and Protein Electrophoresis - Collagen Type I C-Telopeptide (CTx) - PROCOLLAGEN TYPE I INTACT N TERMINAL PROPEPTIDE - DEXA bone density axial skeleton 2. Postmenopausal - Comprehensive metabolic panel - Vitamin D Deficiency Screening (Vit D 25) - TSH - PTH, intact - Magnesium - Protein, Total and Protein Electrophoresis - Collagen Type I C-Telopeptide (CTx) - PROCOLLAGEN TYPE I INTACT N TERMINAL PROPEPTIDE - DEXA bone density axial skeleton 3. History of fragility fracture - Comprehensive metabolic panel - Vitamin D Deficiency Screening (Vit D 25) - TSH - PTH, intact - Magnesium - Protein, Total and Protein Electrophoresis - Collagen Type I C-Telopeptide (CTx) - PROCOLLAGEN TYPE I INTACT N TERMINAL PROPEPTIDE - DEXA bone density axial skeleton 4. Fracture Risk Assessment Score (FRAX) indicating greater than 20% risk for major osteoporosis-related fracture 5. Fracture Risk Assessment Score (FRAX) indicating greater than 3% risk for hip fracture FRAX: 10 year risk of major osteoporotic fracture 33% and of hip fracture 13%. Osteoporosis Treatment Recommendations: Bone anabolic therapy was discussed as a treatment option for osteoporosis. Pt is aware of the risks of this therapy including the rare risk of osteosarcoma. Benefits of this therapy were also discussed. Pt understands that this therapy is self administered via subcutaneous injection daily for 18-24 months followed by anti-resorptive therapy. Lifestyle modifications were discussed as part of treatment for low bone mineral density. I recommended optimizing calcium to 1200mg daily in divided doses, preferably through diet. I also recommended optimizing vitamin D supplementation, patient will be guided on dosage adjustment pending labs if needed. We discussed limiting alcohol, caffeine and pop. I recommended adding prunes into daily diet for bone health. Safe weight bearing exercise recommended for 30 minutes at least three times weekly. Fall prevention was discussed. Safe lifting was discussed with this patient. Patient understands to lift with legs. Pt should avoid activities that cause bending and twisting of the spine such as crunches due to increased risk of vertebral fractures. Physical therapy referral was offered to the patient. Patient understands that physical therapy can be beneficial for osteoporosis to help with posture, balance/fall prevention and strength. Pillo Method may also be used during therapy to help with muscle strengthening, posture and alignment. Pt declines at this time. Advised pt on the following: Adequate dietary calcium intake of 7341-6469 mg per day through diet and/or supplements. Vitamin D3 9380-6569 IU daily. Participate in weight bearing exercises. Optimize home environment to minimize falls. Ensure good vision through regular eye exams. Avoid tobacco use and excessive alcohol consumption. Avoid use of steroids unless clinically necessary. Options for medical therapy discussed. These include bisphosphonates (oral or IV), denusomab, romosozumab, and parathyroid hormone. Discussed pros and cons of each option. Discussed appropriate administration. Discussed possible side effects. Follow up in about 6 months (around 07/25/2025). Subjective The patient is referred for: Osteoporosis Referred by No ref. provider found The osteopenia/osteoporosis was first diagnosed on: 2019 Risk factors for osteoporosis in the patient are history of the following postmenopausal estrogen deficiency or dietary calcium and/or vitamin D deficiency, race. Fracture history: Rib fractures 05/2024 from turning over on cot Vertebral fracture, non-traumatic R shoulder fracture from fall age 80 Family history of OP: unknown Hip fracture in parent: unknown Rheumatoid arthritis: No Steroid use of at least 3 months: No Current smoking: No Alcohol use: No Secondary osteoporosis: No Menopause: unknown- partial hyst in her twenties HRT use: None DEXA imagin03/12/19 FINDINGS: Femoral neck Density: 0.511 g/cm2. T-score: -3.0 Z-score: -0.8 Total Hip Density: 0.653 g/cm2. T-score: -2.4 Z-score: -0.4 Comparison from prior examination: N/A Spine: L1-L4 Density 0.796 g/cm2. T-score: -2.3 Z-score: 0.3 Comparison from prior examination: N/A Labs: see below Current treatment: None Calcium supplementation: None Vit D supplementation: 2000iu daily Dairy intake: milk daily, cheese Medications that the patient has used: None Side effects of meds: NA Kidney disease:No Kidney stones:No Liver disease:No Gastrointestinal issues: hiatal hernia, GERD Gastric bypass:No Difficulty swallowing:Yes occasionally Dental issues:No sees dentist every 6mo History of radiation: No History of bone disease/HPT: No Dr. Mike Malagon did bone biopsy in 12/2024 [facility] in [place]. Staff is calling to get result. Review of Systems Constitutional: Positive for appetite change. Decreased appetite, is improving. HENT: Positive for trouble swallowing. Negative for dental problem. Gastrointestinal: Negative for constipation, diarrhea, nausea and vomiting. Occasional constipation from percocet Endocrine: Non DM Musculoskeletal: Positive for back pain. Negative for neck pain. Pt is in pain management. Neurological: No recent falls, uses walker and wheelchair. An entire ROS was performed at the time of this encounter. Unless noted above in the HPI, the ROS is negative. Allergies[1] Current Medications[2] Medical History[3] Social History Tobacco Use Smoking status: Former Current packs/day: 0.00 Average packs/day: 1 pack/day for 17.0 years (17.0 ttl pk-yrs) Types: Cigarettes Start date: 05/29/1959 Quit date: 05/29/1976 Years since quittin.6 Smokeless tobacco: Never Substance Use Topics Alcohol use: No Surgical History[4] Family History[5] Objective BP (!) 146/89 Pulse 70 Ht 5' (1.524 m) Wt 140 lb (63.5 kg) BMI 27.34 kg/m Physical Exam Vitals and nursing note reviewed. Constitutional: Appearance: Normal appearance. HENT: Head: Normocephalic and atraumatic. Mouth/Throat: Lips: Brillion. Mouth: Mucous membranes are moist. Dentition: Normal dentition. Neck: Thyroid: No thyroid mass or thyromegaly. Cardiovascular: Rate and Rhythm: Normal rate and regular rhythm. Heart sounds: Normal heart sounds. Pulmonary: Breath sounds: Normal breath sounds. Abdominal: Palpations: Abdomen is soft. Musculoskeletal: General: Deformity present. Cervical back: Neck supple. No bony tenderness. No spinous process tenderness. Thoracic back: No bony tenderness. Lumbar back: No bony tenderness. Right lower leg: No edema. Left lower leg: No edema. Comments: Kyphosis Skin: General: Skin is warm and dry. Neurological: Mental Status: She is alert and oriented to person, place, and time. Gait: Gait abnormal. Comments: Pt using walker Psychiatric: Mood and Affect: Mood normal. Behavior: Behavior normal. Data Reviewed and Summarized Labs: Lab Results Component Value Date CREATININE 0.53 02/09/2022 No results found for: ALKPHOS No results found for: TSH, Q3SRIKM, K4PDERN, THYROIDAB, T4FREE No results found for: PTH No components found for: [id number] Imaging/Testing: The combined time I spent reviewing previous notes/test results, evaluating the patient, providing counseling on disease process and treatment plan the day of the visit as well as documenting totaled 39 minutes. I have addressed the above chronic illnesses including management, progression, and benefits and side effects of treatment. I have reviewed prior records, interpreted test results and discussed management with the patient. Portions of the information within this encounter were entered using an electronic dictation system. Best attempts were made to edit/proofread the information prior to note completion. Despite the review of information, some errors may remain. If there are questions related to the information contained within the note please contact the signing physician directly. [1] No Known Allergies [2] Current Outpatient Medications: albuterol 108 (90 Base) MCG/ACT inhaler, USE 2 INHALATIONS BY MOUTH 4 TIMES DAILY IF NEEDED, Disp: 34 g, Rfl: 2 atenolol (Tenormin) 25 MG tablet, , Disp: , Rfl: baclofen (Lioresal) 10 MG tablet, Take 5 mg by mouth 3 times daily., Disp: , Rfl: budesonide-formoterol (Symbicort) 160-4.5 MCG/ACT inhaler, Inhale 2 puffs in the morning and 2 puffs in the evening. Rinse mouth with water after use to reduce aftertaste and incidence of candidiasis. Do not swallow.., Disp: 3 each, Rfl: 3 budesonide-formoterol (Symbicort) 80-4.5 MCG/ACT inhaler, Inhale 2 puffs 2 times daily., Disp: , Rfl: cholecalciferol (Vitamin D-3) 50 MCG (2000 UT) capsule, Take 2,000 Units by mouth daily., Disp: , Rfl: empagliflozin (Jardiance) 10 MG, Take 10 mg by mouth daily., Disp: , Rfl: famotidine (Pepcid) 20 MG tablet, Take 20 mg by mouth in the morning., Disp: , Rfl: ipratropium (Atrovent) 0.02 % nebulizer solution, Take 2.5 mL (0.5 mg) by nebulization every 6 hours as needed for wheezing or shortness of breath., Disp: 75 mL, Rfl: 11 levalbuterol (Xopenex) 0.63 MG/3ML nebulizer solution, Take 1 ampule by nebulization as needed for wheezing or shortness of breath., Disp: 72 mL, Rfl: 5 oxyCODONE-acetaminophen (Percocet) 5-325 MG tablet, Take 1 tablet by mouth every 6 hours as needed for severe pain (7-10)., Disp: , Rfl: Risankizumab-rzaa (SKYRIZI SC), Inject under the skin., Disp: , Rfl: rivaroxaban (Xarelto) 20 MG tablet, Take 20 mg by mouth with evening meal. Take with food., Disp: , Rfl: tiotropium (Spiriva) 18 MCG inhalation capsule, Place 1 capsule (18 mcg) into inhaler and inhale in the morning., Disp: 30 capsule, Rfl: 11 [3] Past Medical History: Diagnosis Date Arthritis Atrial fibrillation (HCC) Chronic obstructive pulmonary disease (HCC) 08/24/2017 Chronic pain Congestive heart failure (CHF) (HCC) GERD (gastroesophageal reflux disease) Hypertension Osteoarthritis Pain management Psoriasis [4] Past Surgical History: Procedure Laterality Date ABDOMINAL SURGERY bladder bowel all dropped APPENDECTOMY BACK SURGERY BLADDER SUSPENSION BRONCHOSCOPY (HISTORICAL) 06/28/2017 Bronch ENB CHOLECYSTECTOMY COLONOSCOPY FINGER SURGERY HERNIA REPAIR 1959' umbilical SHOULDER SURGERY Right SPINE SURGERY 1984 TOTAL ABDOMINAL HYSTERECTOMY UPPER GASTROINTESTINAL ENDOSCOPY [5] Family History Adopted: Yes Problem Relation Name Age of Onset Chronic bronchitis Mother Emphysema Mother documented in this encounter [facility] 01-23-2025 Instructions LAVELLE Andrews CNP - 01/23/2025 9:00 AM EDT Call [phone] to schedule your bone density test The following attachments cannot be sent through Care Everywhere.Abaloparatide, ADULT (Finnish)Teriparatide, ADULT (Finnish)Osteoporosis Discharge Instructions (Finnish)documented in this encounter [facility] 01-01-2025 Discharge summary [facility] 01-01-2025 Note [facility] 12-31-2024 Progress note Note Date/Time December 31, 2024 4:59pm [facility] Medical Records Department [address] [place] [address] Progress Note - Hospitalist 12/31/24 1655 MR#: [id number] Acct: [id number] Name: LESLI ROSALES Rep #:[id number] : 1940 84 From: Goldy Warren DO PCP: SILVIA GUTHRIE Status:ADM IN Location: [facility] RI542-2 Reason for Visit Reason for Visit: Diagnoses Elevated white blood cell count, unspecified (12/24/24) Overweight (12/24/24) Paroxysmal atrial fibrillation (12/24/24) Low back pain, unspecified (12/24/24) Dorsalgia, unspecified (12/24/24) Other specified disorders of bone density and structure, unspecified site (12/24/24) Acute cystitis with hematuria (12/24/24) Difficulty in walking, not elsewhere classified (12/24/24) Weakness (12/24/24) Unspecified abnormal findings in urine (12/24/24) Wedge compression fracture of unspecified lumbar vertebra, initial encounter forclosed fracture (12/24/24) Stable burst fracture of unspecified lumbar vertebra, initial encounter for closed fracture (12/24/24) Stable burst fracture of unspecified lumbar vertebra, subsequent encounter for fracture with delayed healing (12/24/24) Wedge compression fracture of second lumbar vertebra, initial encounter for closed fracture (12/24/24) Wedge compression fracture of third lumbar vertebra, initial encounter for closed fracture (12/24/24) Wedge compression fracture of third lumbar vertebra, sequela (12/24/24) Other specified health status (12/24/24) FDC (current) use of anticoagulants (12/24/24) Other specified postprocedural states (12/24/24) Subjective Subjective Patient was seen and examined today, she states she has less back pain today than yesterday. Patient did fairly well with physical therapy today, I feel sheneeds to be reevaluated tomorrow again to confirm that she can go home. Objective Data Objective Data Vital Signs: Vital Signs Temp Pulse Resp BP Pulse Ox O2 Del Method O2 Flow Rate 99.0 F 84 16 115/69 93 Room Air 2 12/31/24 14:47 12/31/24 14:47 12/31/24 14:47 12/31/24 14:47 12/31/24 14:47 12/31/24 14:47 12/31/24 07:54 Oxygen Flow Rate (L/min) 2 Oxygen Delivery Method Room Air Weight: 64.2 kg Body Mass Index (BMI) 27.8 Intake & Output: Intake and Output for Last 24 Hours 12/29/24 12/30/24 12/31/24 23:59 23:59 23:59 Intake Total 100 / 100 220 / 420 460 / 460 Output Total 100 / 100 Balance 100 / 100 120 / 320 460 / 460 Lab / Micro Data 12/29/24 05:05 12/29/24 05:05 Micro: Microbiology 12/24/24 22:25 Urine, Clean Catch Urine Culture - Final Escherichia coli Proteus mirabilis Physical Exam Narrative alert, oriented x3 and healthy appearing General Appearance: cooperative, well kempt and well developed Orientation / Consciousness: awake, oriented to person, oriented to place and oriented to time HEENT normocephalic, head/scalp atraumatic and moist oral mucous membranes Eyes PERRL, EOMs intact bilaterally and conjunctivae normal Neck supple, no JVD, thyroid normal and no carotid bruits General: trachea midline Resp normal respiratory effort, normal air movement and clear to auscultation bilaterally Auscultation: Negative for rales, rhonchi or wheezes Cardio irregular rate, irregular rhythm, S1 normal heart sound, S2 normal heart sound, no murmurs, no rub and no gallops GI normal to inspection, nondistended, normoactive bowel sounds, soft to palpation,non-tender and non-distended Extremity no clubbing, cyanosis or edema Skin no rashes or lesions noted General Skin Exam: no breakdown Neuro oriented x3, CN's II-XII intact bilaterally, no focal motor deficits and no sensory deficits noted Sensorium / Orientation: awake and alert Speech: speech normal Psych affect normal Assessment & Plan Assessment/Plan (1) Burst fracture of lumbar vertebra: QUALIFIERS: Encounter type: subsequent encounter Fracture type: closed Fracture healing: with delayed healing Qualified Code(s): S32.001G - Stable burst fracture of unspecified lumbar vertebra, subsequent encounter for fracture with delayed healing PLAN: Plan 1. L2 pathologic burst fracture-status post L2 kyphoplasty-postop day 1-patientwill remain on pain medications for comfort, PT and OT will continue to see the patient, she will be reevaluated tomorrow for possible discharge home versus admission to [facility] facility #2 acute cystitis-patient has completed antibiotic treatment #3 paroxysmal [id number] continues on atenolol, Xarelto was held due to patient's kyphoplasty, orthopedic surgery states that she can resume her Xareltotomorrow #4 osteoporosis-patient continues on vitamin D and calcium supplements #5 acute debility secondary to burst fracture of L2-PT OT will continue to see the patient, she may need temporary placement in the [facility] facility for rehab services. The [facility] has accepted the patient if she decides she needs further rehab services as an inpatient. She will be reevaluated tomorrow for possible discharge to their or to her home. Total clinical time spent by myself addressing patient's medical issues, reviewing all her data, and collaborating with patient's care team: 35 minutes Charges/Coding Visit Charges Inpatient E&M: 72504 Subs Hosp L2 12/31/24 1659 <Electronically signed by Goldy Warren DO> Cosigner Signature (if applicable): CC: ~ Signed [facility] Work Phone: 1(611) 520-826805-13-2025 Consult note Author Chris Baer [facility] Note Date/Time December 31, 2024 3:55p m [facility] Medical Records Department [address] [facility] [place] [address] Anesthesia Postop Eval I 12/30/24 1415 MR#: [id number] Acct: [id number] Name: LESLI ROSALES Rep #:[id number] : 1940 84 From: Chris ZUÑIGA PCP: SILVIA GUTHRIE Status:ADM IN Y Race: C Location: [place] [address] Anesthesia: Postop Eval I Current Vital Signs Temperature: 99.4 F Pulse Rate: 83 Blood Pressure: 130/72 Respiratory Rate: 16 Pulse Ox: 94 Oxygen Delivery Method: Room Air Assessment Airway patent: No Spontaneous unlabored respirations: No Mental status: Awake nausea: No Vomiting: No Anesthesia Complication: No Fluid Hydration Crystalloid volume administer (ml): 500 Total IV fluid infused: 500 Progress Note Anesthesia document: Postop Eval 1 completed: Yes 12/31/24 8685 <Electronically signed by Chris Baer [employer]ROLL CONSULTANT> Date _ Chris Baer CRNA 12/30/24 1846<Electronically signed by Donta Mcmillan MD> Cosigner Signature: Date Donta Mcmillan MD CC: ~ Signed [facility] Work Phone: 1(241) 242-873405-13-2025 Progress note [facility] Medical Records Department [address] [place] [address] Progress Note - Hospitalist 12/31/24 4399 MR#: [id number] Acct: [id number] Name: LESLI ROSALES Rep #:[id number] : 1940 84 From: Goldy Warren DO PCP: SILVIA GUTHRIE Status:ADM IN Location: MS3 [id number] Reason for Visit Reason for Visit: Diagnoses Elevated white blood cell count, unspecified (12/24/24) Overweight (12/24/24) Paroxysmal atrial fibrillation (12/24/24) Low back pain, unspecified (12/24/24) Dorsalgia, unspecified (12/24/24) Other specified disorders of bone density and structure, unspecified site (12/24/24) Acute cystitis with hematuria (12/24/24) Difficulty in walking, not elsewhere classified (12/24/24) Weakness (12/24/24) Unspecified abnormal findings in urine (12/24/24) Wedge compression fracture of unspecified lumbar vertebra, initial encounter forclosed fracture (12/24/24) Stable burst fracture of unspecified lumbar vertebra, initial encounter for closed fracture (12/24/24) Stable burst fracture of unspecified lumbar vertebra, subsequent encounter for fracture with delayed healing (12/24/24) Wedge compression fracture of second lumbar vertebra, initial encounter for closed fracture (12/24/24) Wedge compression fracture of third lumbar vertebra, initial encounter for closed fracture (12/24/24) Wedge compression fracture of third lumbar vertebra, sequela (12/24/24) Other specified health status (12/24/24) 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 Patient did fairly well with physical therapy today, I feel sheneeds to be reevaluated tomorrow again to confirm that she can go home. Objective Data Objective Data Vital Signs: Vital Signs Temp Pulse Resp BP Pulse Ox O2 Del Method O2 Flow Rate 99.0 F 84 16 115/69 93 Room Air 2 12/31/24 14:47 12/31/24 14:47 12/31/24 14:47 12/31/24 14:47 12/31/24 14:47 12/31/24 14:47 12/31/24 07:54 Oxygen Flow Rate (L/min) 2 Oxygen Delivery Method Room Air Weight: 64.2 kg Body Mass Index (BMI) 27.8 Intake & Output: Intake and Output for Last 24 Hours 12/29/24 12/30/24 12/31/24 23:59 23:59 23:59 Intake Total 100 / 100 220 / 420 460 / 460 Output Total 100 / 100 Balance 100 / 100 120 / 320 460 / 460 Lab / Micro Data 12/29/24 05:05 12/29/24 05:05 Micro: Microbiology 12/24/24 22:25 Urine, Clean Catch Urine Culture - Final Escherichia coli Proteus mirabilis Physical Exam Narrative alert, oriented x3 and healthy appearing General Appearance: cooperative, well kempt and well developed Orientation / Consciousness: awake, oriented to person, oriented to place and oriented to time HEENT normocephalic, head/scalp atraumatic and moist oral mucous membranes Eyes PERRL, EOMs intact bilaterally and conjunctivae normal Neck supple, no JVD, thyroid normal and no carotid bruits General: trachea midline Resp normal respiratory effort, normal air movement and clear to auscultation bilaterally Auscultation: Negative for rales, rhonchi or wheezes Cardio irregular rate, irregular rhythm, S1 normal heart sound, S2 normal heart sound, no murmurs, no rub and no gallops GI normal to inspection, nondistended, normoactive bowel sounds, soft to palpation,non-tender and non-distended Extremity no clubbing, cyanosis or edema Skin no rashes or lesions noted General Skin Exam: no breakdown Neuro oriented x3, CN's II-XII intact bilaterally, no focal motor deficits and no sensory deficits noted Sensorium / Orientation: awake and alert Speech: speech normal Psych affect normal Assessment & Plan Assessment/Plan (1) Burst fracture of lumbar vertebra: QUALIFIERS: Encounter type: subsequent encounter Fracture type: closed Fracture healing: with delayed healing Qualified Code(s): S32.001G - Stable burst fracture of unspecified lumbar vertebra, subsequent encounter for fracture with delayed healing PLAN: Plan 1. L2 pathologic burst fracture-status post L2 kyphoplasty-postop day 1- patientwill remain on pain medications for comfort, PT and OT will continue to see the patient, she will be reevaluated tomorrow for possible discharge home versus admission to [facility] facility #2 acute cystitis-patient has completed antibiotic treatment #3 paroxysmal O-[id number]-[id number] continues on atenolol, Xarelto was held due to patient's kyphoplasty, orthopedic surgery states that she can resume her Xareltotomorrow #4 osteoporosis-patient continues on vitamin D and calcium supplements #5 acute debility secondary to burst fracture of L2-PT OT will continue to see the patient, she mayneed temporary placement [facility] if she decides she needs further rehab services as an inpatient. She will be reevaluated tomorrow for possible discharge to their or to her home. Total clinical time spent by myself addressing patient's medical issues, reviewing all her data, and collaborating with patient's care team: 35 minutes Charges/Coding Visit Charges Inpatient E&M: 24887 Subs Hosp L2 12/31/24 7432 Cosigner Signature (if applicable): CC: ~ Signed [facility]05-13-2025 Consult note [facility] Medical Records Department [address] [place] [address] Anesthesia Postop Eval I 12/30/24 1415 MR#: [id number] Acct: [id number] Name: LESLI ROSALES Rep #:[id number] : 1940 84 From: Chris ZUÑIGA PCP: SILVIA GUTHRIE Status:ADM IN Y Race: C Location: MS3 [id number] -[id number] Anesthesia: Postop Eval I Current Vital Signs Temperature: 99.4 F Pulse Rate: 83 Blood Pressure: 130/72 Respiratory Rate: 16 Pulse Ox: 94 Oxygen Delivery Method: Room Air Assessment Airway patent: No Spontaneous unlabored respirations: No Mental status: Awake nausea: No Vomiting: No Anesthesia Complication: No Fluid Hydration Crystalloid volume administer (ml): 500 Total IV fluid infused: 500 Progress Note Anesthesia document: Postop Eval 1 completed: Yes 12/31/24 1555 [employer]YROLL CONSULTANT> Date _ Chris Mesa [employer] CONSULTANT 12/30/24 1846 Cosigner Signature: Date Donta Mcmillan MD CC: ~ [facility] Telephone encounter Note* Telephone Encounter - Ana Rush LPN - 12/31/2024 3:[address] Marty Guthrie's office to inquire if physician will follow/sign for HHC. Spoke with Gerry who confirmed MD will follow for HHC orders. [facility] Work Phone: [phone] Miscellaneous Notes* Telephone Encounter - Ana Rush LPN - 12/31/2024 3:[address] Marty Guthrie's office to inquire if physician will follow/sign for HHC. Spoke with Gerry who confirmed will follow for HHC orders. [facility] Progress note Author Aleksandra [facility] Note Date/Time December 31, 2024 1:22p [facility] Medical Records Department [address] [place] [address] Progress Note - Orthopedic 12/31/24 1319 MR#: [id number] Acct: [id number] Name: LESLI ROSALES Rep #:[id number] : 1940 84 From: Aleksandra COLEMAN PCP: SILVIA GUTHRIE Status:ADM IN Location: MS3 RI667-7 Subjective Subjective Postop day 1 L2 kyphoplasty. Patient is doing well postoperatively with her pain well-managed. Patient has been up and walking with therapy. Patient says she has not noticed a complete improvement in her pain since the kyphoplasty butdenies any worsening symptoms. Seen with Dr. Malagon. Objective Data Objective Data Vital Signs: Vital Signs Temp Pulse Resp BP Pulse Ox O2 Del Method O2 Flow Rate 98.3 F 67 16 139/87 H 100 Nasal Cannula 2 12/31/24 07:54 12/31/24 07:54 12/31/24 07:54 12/31/24 07:54 12/31/24 07:54 12/31/24 07:54 12/31/24 07:54 Oxygen Flow Rate (L/min) 2 Oxygen Delivery Method Nasal Cannula Weight: 141 lb 8.588 oz Body Mass Index (BMI) 27.8 Intake & Output: Intake and Output for Last 24 Hours 12/29/24 12/30/24 12/31/24 23:59 23:59 23:59 Intake Total 100 / 100 220 / 420 460 / 460 Output Total 100 / 100 Balance 100 / 100 120 / 320 460 / 460 Lab / Micro Data 12/29/24 05:05 12/29/24 05:05 Micro: Microbiology 12/24/24 22:25 Urine, Clean Catch Urine Culture - Final Escherichia coli Proteus mirabilis Radiography Diagnostic Testing: Radiology Impression Lumbar Spine X-Ray 12/30/24 13:12 IMPRESSION: Intraoperative imaging provided for kyphoplasty of the L2 vertebrae. Reading Location: [id number] Physical Exam Narrative Neurological examination of the lower extremity shows 5X5 power. Normal sensation across all dermatomes. Physical examination of the back shows mild saturation of gauze bilaterally. Const alert, oriented x3 and no apparent distress Assessment & Plan Assessment/Plan (1) Status post kyphoplasty: PLAN: Plan Postop day 1 L2 kyphoplasty. Patient is doing well postoperatively. From an orthopedic standpoint the patient is ready for discharge. Reviewed and educated on the use of the incentive spirometer. She will follow-up in the clinic. Patient is in agreement. 12/31/24 1322 <Electronically signed by Aleksandra COLEMAN> Cosigner Signature (if applicable): CC: ~ [facility]igned [facility] Work Phone: 1(260) 959-224605-13-2025 Progress note [facility] Medical Records Department [address] [place] [address] Progress Note - Orthopedic 12/31/24 1319 MR#: [id number] Acct: [id number] Name: LESLI ROSALES Rep #:[id number] : 1940 84 From: Aleksandra COLEMAN PCP: SILVIA GUTHRIE Status:ADM IN Location: MA3 [id number] Subjective Subjective Postop day 1 L2 kyphoplasty. Patient is doing well postoperatively with her pain well-managed. Patient has been up and walking with therapy. Patient says she has not noticed a complete improvement inher pain since the kyphoplasty butdenies any worsening symptoms. Seen with Dr. Malagon. Objective Data Objective Data Vital Signs: Vital Signs Temp Pulse Resp BP Pulse Ox O2 Del Method O2 Flow Rate 98.3 F 67 16 139/87 H 100 Nasal Cannula 2 12/31/24 07:54 12/31/24 07:54 12/31/24 07:54 12/31/24 07:54 12/31/24 07:54 12/31/24 07:54 12/31/24 07:54 Oxygen Flow Rate (L/min) 2 Oxygen Delivery Method Nasal Cannula Weight: 141 lb 8.588 oz Body Mass Index (BMI) 27.8 Intake & Output: Intake and Output for Last 24 Hours 12/29/24 12/30/24 12/31/24 23:59 23:59 23:59 Intake Total 100 / 100 220 / 420 460 / 460 Output Total 100 / 100 Balance 100 / 100 120 / 320 460 / 460 Lab / Micro Data 12/29/24 05:05 12/29/24 05:05 Micro: Microbiology 12/24/24 22:25 Urine, Clean Catch Urine Culture - Final Escherichia coli Proteus mirabilis Radiography Diagnostic Testing: Radiology Impression Lumbar Spine X-Ray 12/30/24 13:12 IMPRESSION: Intraoperative imaging provided for kyphoplasty of the L2 vertebrae. Reading Location: [facility] Physical Exam Narrative Neurological examination of the lower extremity shows 5X5 power. Normal sensation across all dermatomes. Physical examination of the back shows mild saturation of gauze bilaterally. Const alert, oriented x3 and no apparent distress Assessment & Plan Assessment/Plan (1) Status post kyphoplasty: PLAN: Plan Postop day 1 L2 kyphoplasty. Patient is doing well postoperatively. From an orthopedic standpoint the patient is ready for discharge. Reviewed and educated on the use of the incentive spirometer. She will follow-up in the clinic. Patient is in agreement. 12/31/24 1322 Cosigner Signature (if applicable): CC: ~ [facility] Consult note Author Donta Mcmillan [facility] Note Date/Time December 30, 2024 6:28p [facility] Medical Records Department [address] [place] [address] Anesthesia Postop Eval II 12/30/24 1828 MR#: [id number] Acct: [id number] Name: LESLI ROSALES Rep #:[id number] : 1940 84 From: Donta Mcmillan MD PCP: SILVIA GUTHRIE Status:ADM IN Y Race: C Location: [facility] Anesthesia Postop Eval I Sum Postop Eval Completion status Anesthesia document: Postop Eval 1 completed: Yes Anesthesia Postop Eval I Summary Anesthesia Postop Eval I Summary: Anesthesia Postop Eval I: Assessment Summary Airway patent No 12/30/24 14:16 PAYROLL CONSULTANT.SOBR Spontaneous unlabored No 12/30/24 14:16 PAYROLL CONSULTANT.SOBR respirations Mental status Awake 12/30/24 14:16 PAYROLL CONSULTANT.SOBR nausea No 12/30/24 14:16 PAYROLL CONSULTANT.SOBR Vomiting No 12/30/24 14:16 PAYROLL CONSULTANT.SOBR Anesthesia Postop Eval I: Fluid Summary Crystalloid volume administer 500 12/30/24 14:16 PAYROLL CONSULTANT.SOBR (ml) Colloids volume administered ( ml) Blood Product volume administered (ml) Total IV fluid infused 500 12/30/24 14:16 PAYROLL CONSULTANT.SOBR Anesthesia Postop Eval I: Summary Notes Anesthesia Complication No 12/30/24 14:16 PAYROLL CONSULTANT.SOBR Anesthesia Complication Comment: Post-operative progress note Anesthesia: Postop Eval II Evaluation Mental status: Awake and Calm Pain Level: 2 nausea: No Vomiting: No Complications Anesthesia Complication: No 12/30/241827 <Electronically signed by Donta sosa MD> Date _ Donta Mcmillan MD Cosigner Signature: Date CC: ~ [facility]igned [facility] Work Phone: 1(459) 488-764905-12-2025 Progress note Author [facility] Note Date/Time December 30, 2024 5:23p [facility] Medical Records Department [address] [place] [address] Progress Note 12/30/241714 MR#: [id number] Acct: [id number] Name: LESLI ROSALES Rep #:[id number] : 1940 84 From: Goldy Warren DO PCP: SILVIA GUTHRIE Status:ADM IN [facility] Subjective Subjective Patient was seen and examined today, she underwent an L2 kyphoplasty today. Objective Data Objective Data Vital Signs: Vital Signs Temp Pulse Resp BP Pulse Ox O2 Del Method O2 Flow Rate 97.8 F 70 18 149/75 H 97 Nasal Cannula 2 12/30/24 15:17 12/30/24 15:17 12/30/24 15:17 12/30/24 15:17 12/30/24 15:17 12/30/24 15:17 12/30/24 15:17 Oxygen Flow Rate (L/min) 2 Oxygen Delivery Method Nasal Cannula Weight: 64.3 kg Body Mass Index (BMI) 27.8 Intake & Output: Intake and Output for Last 24 Hours 12/28/24 12/29/24 12/30/24 23:59 23:59 23:59 Intake Total 400 / 500 100 / 100 110 / 110 Output Total 100 / 100 Balance 400 / 500 100 / 100 Lab / Micro Data 12/29/24 05:05 12/29/24 05:05 Micro: Microbiology 12/24/24 22:25 Urine, Clean Catch Urine Culture - Final Escherichia coli Proteus mirabilis Radiography Diagnostic Testing: Radiology Impression Lumbar Spine X-Ray 12/30/24 13:12 IMPRESSION: Intraoperative imaging provided for kyphoplasty of the L2 vertebrae. Reading Location: [facility] Physical Exam Const alert, oriented x3 and healthy appearing General Appearance: cooperative, well kempt and well developed Orientation / Consciousness: awake, oriented to person, oriented to place and oriented to time HEENT normocephalic, head/scalp atraumatic and moist oral mucous membranes Eyes PERRL, EOMs intact bilaterally and conjunctivae normal Neck supple, no JVD, thyroid normal and no carotid bruits General: trachea midline Resp normal respiratory effort, normal air movement and clear to auscultation bilaterally Auscultation: Negative for rales, rhonchi or wheezes Cardio regular rate, regular rhythm, S1 normal heart sound, S2 normal heart sound, no murmurs, no rub and no gallops GI normal to inspection, nondistended, normoactive bowel sounds, soft to palpation,non-tender and non-distended Extremity no clubbing, cyanosis or edema Skin no rashes or lesions noted General Skin Exam: no breakdown Neuro oriented x3, CN's II-XII intact bilaterally, no focal motor deficits and no sensory deficits noted Sensorium / Orientation: awake and alert Speech: speech normal Psych affect normal Assessment & Plan Assessment/Plan (1) Burst fracture of lumbar vertebra: QUALIFIERS: Encounter type: subsequent encounter Fracture type: closed Fracture healing: with delayed healing Qualified Code(s): S32.001G - Stable burst fracture of unspecified lumbar vertebra, subsequent encounter for fracture with delayed healing PLAN: Plan 1. L2 pathologic burst fracture-status post L2 kyphoplasty-patient will remain on pain medications for comfort, PT and OT will continue to see the patient #2 acute cystitis-patient has completed antibiotic treatment #3 paroxysmal A-kve-nujftvd continues on atenolol, Xarelto was held due to patient's kyphoplasty #4 osteoporosis-patient continues on vitamin D and calcium supplements #5 acute debility secondary to burst fracture of L2-PT OT will continue to see the patient, [facility] if she decides she needs further rehab services as an inpatient. Total clinical time spent by myself addressing patient's medical issues, reviewing all her data, and collaborating with patient's care team: 35 minutes Charges/Coding Visit Charges Inpatient E&M: 89504 Subs Hosp L2 12/30/24 1723 <Electronically signed by Goldy Warren DO> Goldy Warren DO Cosigner Signature (if applicable): CC: ~ [facility]igned [facility] Work Phone: 1(406) 273-542005-12-2025 Consult note [facility] Medical Records Department [address] [place] [address] Anesthesia Postop Eval II 12/30/24 1828 MR#: [id number] Acct: [id number] Name: CONNIELESLI J Rep #:[id number] : 1940 84 From: Donta Mcmillan MD PCP: SILVIA GUTHRIE Status:ADM IN Y Race: C Location: [facility]306 -1 Anesthesia Postop Eval I Sum Postop Eval Completion status Anesthesia document: Postop Eval 1 completed: Yes Anesthesia Postop Eval I Summary Anesthesia Postop Eval I Summary: Anesthesia Postop Eval I: Assessment Summary Airway patent No 12/30/24 14:16 PAYROLL CONSULTANT.SOBR Spontaneous unlabored No 12/30/24 14:16 PAYROLL CONSULTANT.SOBR respirations Mental status Awake 12/30/24 14:16 PAYROLL CONSULTANT.SOBR nausea No 12/30/24 14:16 PAYROLL CONSULTANT.SOBR Vomiting No 12/30/24 14:16 PAYROLL CONSULTANT.SOBR Anesthesia Postop Eval I: Fluid Summary Crystalloid volume administer 500 12/30/24 14:16 PAYROLL CONSULTANT.SOBR (ml) Colloids volume administered ( ml) Blood Product volume administered (ml) Total IV fluid infused 500 12/30/24 14:16 PAYROLL CONSULTANT.SOBR Anesthesia Postop Eval I: Summary Notes Anesthesia Complication No 12/30/24 14:16 PAYROLL CONSULTANT.SOBR Anesthesia Complication Comment: Post-operative progress note Anesthesia: Postop Eval II Evaluation Mental status: Awake and Calm Pain Level: 2 nausea: No Vomiting: No Complications Anesthesia Complication: No 12/30/24 1828 sheila POLANCO> Date _ Donta Mcmillan MD Cosigner Signature: Date CC: ~ [facility]igned [facility]05-12-2025 Progress note [facility] Medical Records Department [address] [place] [address] Progress Note 12/30/24 171 MR#: [id number] Acct: [id number] Name: LESLI ROSALES Rep #:[id number] : 1940 84 From: Golyd Warren DO PCP: SILVIA GUTHRIE Status:ADM IN Location: [facility] [id number] Subjective Subjective Patient was seen and examined today, she underwent an L2 kyphoplasty today. Objective Data Objective Data Vital Signs: Vital Signs Temp Pulse Resp BP Pulse Ox O2 Del Method O2 Flow Rate 97.8 F 70 18 149/75 H 97 Nasal Cannula 2 12/30/24 15:17 12/30/24 15:17 12/30/24 15:17 12/30/24 15:17 12/30/24 15:17 12/30/24 15:17 12/30/24 15:17 Oxygen Flow Rate (L/min) 2 Oxygen Delivery Method Nasal Cannula Weight: 64.3 kg Body Mass Index (BMI) 27.8 Intake & Output: Intake and Output for Last 24 Hours 12/28/24 12/29/24 12/30/24 23:59 23:59 23:59 Intake Total 400 / 500 100 / 100 110 / 110 Output Total 100 / 100 Balance 400 / 500 100 / 100 Lab / Micro Data 12/29/24 05:05 12/29/24 05:05 Micro: Microbiology 12/24/24 22:25 Urine, Clean Catch Urine Culture - Final Escherichia coli Proteus mirabilis Radiography Diagnostic Testing: Radiology Impression Lumbar Spine X-Ray 12/30/24 13:12 IMPRESSION: Intraoperative imaging provided for kyphoplasty of the L2 vertebrae. Reading Location: [facility] Physical Exam Const alert, oriented x3 and healthy appearing General Appearance: cooperative, well kempt and well developed Orientation / Consciousness: awake, oriented to person, oriented to place and oriented to time HEENT normocephalic, head/scalp atraumatic and moist oral mucous membranes Eyes PERRL, EOMs intact bilaterally and conjunctivae normal Neck supple, no JVD, thyroid normal and no carotid bruits General: trachea midline Resp normal respiratory effort, normal air movement and clear to auscultation bilaterally Auscultation: Negative for rales, rhonchi or wheezes Cardio regular rate, regular rhythm, S1 normal heart sound, S2 normal heart sound, no murmurs, no rub and no gallops GI normal to inspection, nondistended, normoactive bowel sounds, soft to palpation,non-tender and non-distended Extremity no clubbing, cyanosis or edema Skin no rashes or lesions noted General Skin Exam: no breakdown Neuro oriented x3, CN's II-XII intact bilaterally, no focal motor deficits and no sensory deficits noted Sensorium / Orientation: awake and alert Speech: speech normal Psych affect normal Assessment & Plan Assessment/Plan (1) Burst fracture of lumbar vertebra: QUALIFIERS: Encounter type: subsequent encounter Fracture type: closed Fracture healing: with delayed healing Qualified Code(s): S32.001G - Stable burst fracture of unspecified lumbar vertebra, subsequent encounter for fracture with delayed healing PLAN: Plan 1. L2 pathologic burst fracture-status post L2 kyphoplasty-patient will remain on pain medications for comfort, PT and OT will continue to see the patient #2 acute cystitis-patient has completed antibiotic treatment #3 paroxysmal L-xty-ghbzgij continues on atenolol, Xarelto was held due to patient's kyphoplasty #4 osteoporosis-patient continues on vitamin D and calcium supplements #5 acute debility secondary to burst fracture of L2-PT OT will continue to see the patient, [facility]. The [facility] has accepted the patient if she decides she needs further rehab services as an inpatient. Total clinical time spent by myself addressing patient's medical issues, reviewing all her data, and collaborating with patient's care team: 35 minutes Charges/Coding Visit Charges Inpatient E&M: 51359 Subs Hosp L2 12/30/24 1723 Goldy Warren DO Nohemyigndavid Signature (if applicable): CC: ~ [facility]igned [facility]05-12-2025 Radiology Diagnostic study note [facility] Imaging Services [address] [place] [address] Lumbar Spine 2 or 3 Views MR#: [id number] Acct: [id number] Name: LESLI ROSALES Rep #: [id number] : 1940 F 84 From: Kristian Solis MD PCP: SILVIA GUTHRIE Status: ADM IN Study:Lumbar Spine 2 or 3 Views Date of Exam: 12/30/24 Exam# [id number] Ordering Dr: Kelsey Malagon MD PROCEDURE: Kyphoplasty of the L2 vertebrae. REASON FOR EXAM: L2 KYPHOPLASTY TECHNIQUE: Intraoperative fluoroscopic services provided for kyphoplasty of the L2 vertebrae. 59.8 seconds of fluoroscopy. 18.97 mGy. COMPARISON: Prior study dated December 27, 2024. FINDINGS: Intraoperative imaging provided for kyphoplasty of the L2 vertebrae. RAD/Lumbar Spine 2 or 3 Views IMPRESSION: Intraoperative imaging provided for kyphoplasty of the L2 vertebrae. Reading Location: [id number] CC: Dr. Mike Malagon MD; SILVIA GUTHRIE ~ Head Tennis Professional: Signed [facility]05-12-2025 Consult note Author Donta Mcmillan [facility] Note Date/Time December 30, 2024 12:45 pm [facility] Medical Records Department [address] [place] [address] Pre-Anesthesia Evaluation 12/30/24 1220 MR#: [id number] Acct: [id number] Name: LESLI ROSALES Rep #:[id number] : 1940 84 From: Donta Mcmillan MD PCP: GUTHRIE,SILVIA Status:ADM IN Y Race: C Location: MS3 MS306 -1 ASA Classification* ASA Classification ASA Classification: 3 Assessment & Plan Anesthesia* Anesthesia Assessment Anesthesia Assessment: Discussed sedation and/or anesthesia options, risks, benefits, and alternatives with patient/parents/legal guardian/POA. Questions invited. The patient/parents/legal guardian/POA seems to understand and agrees to proceedwith anesthesia plan. Reviewed the physical assessment, medical history, allergy history and patient home medications list prior to surgery/procedure/anesthetic and documented any changes. Performed airway and anesthesia risk assessments. Anesthesia Type Anesthesia Type: MAC History Source History Obtained from:: Patient and Chart Anesthesia Focused Assessment* Temperature: 98.8 F Pulse Rate: 67 Blood Pressure: 134/64 Respiratory Rate: 16 Pulse Ox: 98 Oxygen Delivery Method: Room Air Oxygen Flow Rate (L/min): 2 Airway Assessment Mouth opens: >3 cm Mallampati Score: III Teeth Condition: Intact Neck Range of motion (ROM): Limited ROM (Somewhat decreased extension) Comment: Short thyromental distance Focused Labs Anesthesia Preop lab: CBC WBC 7.2 K/mm3 (4.4-11.0) 12/29/24 05:05 12/29/24 RBC 3.76 M/mm3 (4.2-5.4) L 12/29/24 05:05 12/29/24 Hgb 12.2 g/dL (12.0-15.0) 12/29/24 05:05 12/29/24 Hct 38.1 % (37-47) 12/29/24 05:05 12/29/24 Plt Count 141 K/mm3 (150-450) L 12/29/24 05:05 12/29/24 CHEMISTRY Potassium 4.3 mmol/L (3.3-5.1) 12/29/24 05:05 12/29/24 Sodium 141 mmol/L (133-145) 12/29/24 05:05 12/29/24 Magnesium 2.1 mg/dL (1.5-2.2) 12/24/24 16:20 12/24/24 Phosphorus 3.0 mg/dL (2.7-4.5) 12/26/24 05:49 12/26/24 BUN 15 mg/dL (4-19) 12/29/24 05:05 12/29/24 Creatinine 0.37 mg/dL (0.70-1.20) L 12/29/24 05:05 Glucose 76 mg/dL (70-99) 12/29/24 05:05 12/29/24 POC Glucose 116 mg/dL (74-106) H 12/28/24 12:13 12/28/24 TSH 1.160 uIU/mL (0.300-4.200) 12/24/24 16:20 05/02/12 COAG PT 18.8 SECONDS (11.7-14.9) H 11/18/24 02:55 10/21 09/14 Pre-Assessment Diagnosis/Proposed Procedure Planned Operative Procedure(s): Kyphoplasty Anesthesia History Anesthesia History - ethernet network architect: Anesthesia History - ethernet network architect Hx Hospitalization Any Problems With Anesthesia No 12/29/24 19:49 Cholinesterase deficiency No 12/29/24 19:49 You/Your Family Experience No 12/29/24 19:49 fever (hyperthermia) with Relationship Recent Exposure to Contagious No 12/29/24 19:49 Disease Does patient have nerve No 12/29/24 19:49 stimulator Patient instructed to have No 12/29/24 19:49 device shut off --Does patient have Pacemaker No 12/30/24 10:43 or ICD? When Was Last Pacemaker Check QUESTION #4 FULL TEXT: You/Your Family Experience fever (hyperthermia) with Anesthesia Last Oral Intake Last Oral intake: Last Oral Intake NPO since 00:00 12/30/24 10:43 Meds taken in AM with sips of Yes 12/30/24 10:43 water? Meds patient instructed to atenolol 12/30/24 10:43 take am of surgery PONV PONV - ethernet network architect: PONV - ethernet network architect Female HX of Motion Sickness HX of N/V After Surgery Non-Smoker Duration of Surgery greater than 60 minutes Number of Risk Factors PONV Score Height & Weight Height & Weight: Anesthesia: Height & Weight Height 4 ft 11.84 in 12/30/24 10:43 Weight: 64.3 kg 12/30/24 10:43 Body Mass Index (BMI) 27.8 12/30/24 10:43 Respiratory Assessment Respiratory Assessment - ethernet network architect: Respiratory Tract Infection Hx - ethernet network architect Hx Respiratory Tract Infection Yes: pneumonia 12/29/24 19:49 Any additional information?: Yes Hx Respiratory Tract Infection: Yes (Pneumonia was back in August. She is now clear.) STOP Sleep Apnea STOP Sleep Apnea - ethernet network architect: STOP Sleep Apnea - ethernet network architect Hx Hypertension Yes 12/25/24 13:07 Hx Sleep Apnea No 12/24/24 21:20 CPAP BIPAP Do you snore loudly (louder No 12/24/24 21:20 than talking or can be heard Do you often feel tired/ No 12/24/24 21:20 fatigued/ sleepy during daytime? Has anyone observed you stop No 12/24/24 21:20 breathing during sleep? STOP Results Negative 12/24/24 21:20 QUESTION #5 FULL TEXT : Do you snore loudly (louder than talking or can be heard through closed doors)? Tobacco Use History Tobacco Use History - ethernet network architect: Tobacco Use History - ethernet network architect Tobacco Use Smoking Status Former smoker 12/24/24 21:20 Hx Tobacco Use No 12/24/24 21:20 Years Smoking Packs Smoked per Day Smoking Cessation Date was No - quit smoking greater 12/24/24 21:20 within the last 15 years than 15 years ago Hx Smoking Cessation Date 08/21/75 12/24/24 21:20 Hx Smoking Cessation Counseling Hematologic Medial History Hematologic Hx - ethernet network architect: Hematologic Medical Hx - dental insurance coordinator Hx of Blood Transfusion No 12/24/24 21:20 Hx of Transfusion in last 3 No 12/24/24 21:20 Months Date of Last Transfusion (if within last 3 months) Ever experience any problems No 12/24/24 21:20 with transfusion(s)? Specify any problems Hx of Preganancy in last 3 N/A 12/24/24 21:20 Months Nurse Filling Out Transfusion MMELUCH 12/24/24 21:20 & Questions: Date: 12/24/24 12/24/24 21:20 Time: 21:22 12/24/24 21:20 Patient unable to answer at this time (ie. confused, unrespo /Reproduction History /Reproductive History - ethernet network architect: /Reproductive Hx- ethernet network architect Hx Now No 12/29/24 19:49 Gestational Age (in weeks): EDC: Hx Hx Para Hx Section SAB No 12/29/24 19:49 Active Medications Active Medications: Current Medications Generic Name Dose Route Start Last Admin Trade Name Freq PRN Reason Stop Dose Admin Acetaminophen 1,000 mg 12/25/24 14:00 12/30/24 05:49 Acetaminophen 500 Mg Tablet PO Not Given Q8 SUKHJINDER Albuterol Sulfate 2.5 mg 12/24/24 21:14 Albuterol 2.5 Mg/3 Ml Vial.Neb. INHALATION Q4H PRN PRN dyspnea Atenolol 25 mg 12/25/24 10:00 12/30/24 08:32 Atenolol 25 Mg Tablet PO 25 mg DAILY SUKHJINDER Administration Protocol Calamine/Phenol 1 applic 12/24/24 22:00 12/29/24 21:04 Menthol/Lanolin/Calamine/Znox 113 Gm Tube TOPICAL 1 applic BID SUKHJINDER Administration Protocol Calcium Carbonate 500 mg 12/25/24 08:00 12/29/24 16:39 Calcium Carbonate 500 Mg Tablet PO 500 mg TIDCM SUKHJINDER Administration Cholecalciferol 50 mcg 12/25/24 10:00 12/29/24 08:54 Cholecalciferol (Vit D3) 25 Mcg Tablet (1,000 Units) PO 50 mcg DAILY SUKHJINDER Administration Enoxaparin Sodium 40 mg 12/26/24 20:00 12/29/24 08:53 Enoxaparin 40 Mg/0.4 Ml Syringe SC 40 mg DAILY SUKHJINDER Administration Famotidine 20 mg 12/25/24 10:00 12/29/24 08:54 Famotidine 20 Mg Tablet PO 20 mg DAILY SUKHJINDER Administration Folic Acid 1 mg 12/25/24 08:00 12/29/24 08:54 Folic Acid 1 Mg Tablet PO 1 mg BREAKFAST SUKHJINDER Administration Hydralazine HCl 5 mg 12/24/24 20:57 Hydralazine 20 Mg/Ml Vial IV Q8H PRN PRN SBP GREATER THAN 160 Protocol Sodium Chloride 250 mls @ 15 mls/hr 12/24/24 20:58 IV .[id number] PRN Saline Flush Lactated Ringer's 1,000 mls @ 15 mls/hr 12/30/24 12:00 12/30/24 11:59 IV 15 mls/hr .Q48H SUKHJINDER Administration Ipratropium [place] 0.5 mg 12/24/24 21:15 Ipratropium 0.5 Mg/2.5 Ml Solution INHALATION Q6H PRN PRN shortness of breath Lidocaine 2 patch 12/25/24 10:00 12/29/24 08:53 Lidocaine 5% Patch TOPICAL 2 patch DAILY [facility] Administration Protocol Magnesium Hydroxide 30 ml 12/24/24 20:57 12/28/24 13:49 Magnesium Hydroxide 30 Ml Udc PO 30 ml DAILY PRN PRN Administration Constipation Melatonin 3 mg 12/24/24 20:57 12/28/24 20:41 Melatonin 3 Mg Tablet PO 3 mg QHS PRN PRN Administration INSOMNIA Morphine Sulfate 2 mg 12/24/24 20:57 12/25/24 02:40 Morphine 2 Mg/Ml Syringe IV 2 mg Q4H PRN PRN Administration Pain Score 6-10 Nystatin 1 applic 12/24/24 22:00 12/29/24 21:04 Nystatin Powder 15gm Bottle TOPICAL 1 applic BID [facility] Administration Protocol Ondansetron HCl 4 mg 12/24/24 20:57 12/30/24 09:47 Ondansetron 4 Mg/2 Ml Vial IV 4 mg Q8H PRN PRN Administration NAUSEA/VOMITING Oxycodone HCl 5 mg 12/25/24 07:30 12/29/24 16:48 Oxycodone 5 Mg Tablet PO 5 mg Q4H PRN PRN Administration Pain Score 4-5 or Pre PT/OT Polyethylene Glycol 17 gm 12/25/24 10:00 12/29/24 10:27 Polyethylene Glycol 3350 17 Gm Packet PO Not Given DAILY SUKHJINDER Promethazine HCl 12.5 mg 12/24/24 20:57 Promethazine 25 Mg/Ml Syringe IM Q6H PRN PRN Breakthrough nausea/vomiting Rivaroxaban 20 mg 12/25/24 10:00 Rivaroxaban 20 Mg Tablet PO DAILY SUKHJINDER Senna/Docusate Sodium 2 tablet 12/25/24 07:32 12/28/24 20:41 Senna/Docusate Sodium 1 Tablet PO 2 tablet DAILY PRN PRN Administration CONSTIPATION Sodium Chloride 10 - 40 ml 12/24/24 20:58 12/30/24 09:47 0.9% Saline Lock 10 Ml Syringe IV 10 ml UD PRN Administration SALINE FLUSH Tizanidine HCl 2 mg 12/25/24 09:01 12/29/24 05:20 Tizanidine Hcl 2 Mg Tablet PO 2 mg Q8H PRN PRN Administration spasm PFSH Medical History Anxiety Depression Chronic pain GERD (gastroesophageal reflux disease) On home oxygen therapy Atrial fibrillation Congestive heart failure (CHF) Hypertension Shingles Psoriatic arthritis COPD (chronic obstructive pulmonary disease) A-fib Home Medications ?Medication ?Instructions ?Recorded ?Last Taken ?Type atenolol 25 mg tablet 25 mg PO DAILY Atrial fibril lation 06/26/21 12/30/24 H istory famotidine 20 mg tablet 20 mg PO DAILY 06/26/2102/12 History folic acid 1 mg tablet 1 mg PO DAILY supplement 02/0812/24/24 History rivaroxaban 20 mg tablet (Xarelto) 20 mg PO DAILY 02/0812/24/24 History cholecalciferol (vitamin D3) 50 50 mcg PO DAILY 12/24/24 History mcg (2,000 unit) capsule furosemide 20 mg tablet 20 mg PO DAILY 11/17/24 Unkn own History albuterol sulfate 90 mcg/actuation 2 puff inhalation Q 6H PRN dyspnea 11/18/24 Unknown History aerosol inhaler tiotropium bromide 18 mcg capsule 1 cap inhalation RUTH LY PRN 11/18/24 12/24/24 History with inhalation device (Spiriva shortness of breath with HandiHaler) lidocaine 5 % topical patch 2 patch topical DAILY #0 e a 11/24/24 Unknown Rx oxycodone-acetaminophen 5 mg-325 1 tab PO TID PRN pain 12/24/24 Unknown History mg tablet risankizumab-rzaa 150 mg/mL 150 mg subcut Q90D 5 12/18/24 History subcutaneous pen injector (Skyrizi) Allergy/AdvReac Type Severity Reaction Status Date / Time No Known Allergies Allergy Verified 12/24/24 15:23 Surgical History History of partial hysterectomy History of bladder suspension procedure History of appendectomy History of cholecystectomy H/O hernia repair Social History household members: none Smoking Status: Former smoker substance use type: does not use Review of Systems (Anesthesia) ROS Narrative System reviewed and no additional complaints, except as documented. 12/30/24 1245 <Electronically signed by Donta sosa MD> Date _ Donta Mcmillan MD Cosigner Signature: Date CC: ~ Signed [facility] Work Phone: 1(954) 425-463305-12-2025 Procedure note [facility] Medical Records Department [address] [place] [address] Operative Report 12/30/24 1410 MR#: [id number] Acct: [id number] Name: LESLI ROSALES Rep #:[id number] : 1940 84 From: Mike Malagon MD PCP: SILVIA GUTHRIE Status:ADM IN Location: [facility] [id number] Procedures Musculoskeletal 20xxx-29xxx: Other Procedure See Report Operative Report (Standard) Operative Information Date of Procedure: 12/30/24 Pre-Operative Diagnosis: L2 pathologic burst fracture Post-Operative Diagnosis: Same Surgery/Procedure Performed: L2 kyphoplasty 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 forces 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: No Type of Anesthesia: General RN Documented Start/Stop Times: Operation Date: 12/30/24 12:45 Case Time Into Pre-Op 12/30/24 11:40 Anesthesia Start 12/30/24 13:07 Into Room 12/30/24 13:07 Procedure Start 12/30/24 13:35 Procedure End 12/30/24 14:03 Anesthesia End 12/30/24 14:07 Out of Room 12/30/24 14:07 Procedure Start Time: 13:35 Procedure Stop Time: 14:03 Select all DRAINS/GRAFTS/IMPLANTS that apply: Implanted device Implanted device details: Bone cement?kyphoplasty Estimated Blood Loss: 5 cc Specimen collected: Yes Description of specimen(s) removed: Multiple body biopsythrough the right and left transpedicular approach Description of surgery: ATTENDING SURGEON: Mike Malagon MD SYSTEMS SOFTWARE DEVELOPER: none PREOPERATIVE DIAGNOSIS: L2 pathologic burst fracture POSTOPERATIVE DIAGNOSIS: Same PROCEDURE PERFORMED: L2 kyphoplasty CPT 24661 INDICATIONS FOR THE PROCEDURE: The patient is a 84-year-old lady, who presents with back pain and was found to have a pathological burst fracture at L2. Imaging showed L2 compression fracture with burst component with osteopenia. MRI could not identify any pathologic lesion. Patient does not have any known primary tumor. Possibility of intravertebral cleft was discussed. After failing conservative management, the patient requested cement augmentation with kyphoplasty. Risk benefits were discussed in detail. The risks include but arenot limited to infection, bleeding, hematoma formation, nerveor spinal cord injury, DVT, pulmonary embolism, cement Mollison, hypertension, cardiac arrest, persistent pain, need for further procedures, cement extravasation, future insufficiency fractures. After a discussion of the risks and benefits of the procedure, consent was signed for the procedure. DETAILS OF PROCEDURE: Patient was met in the preoperative holding area and the correct site was marked. The patient was brought back to the operative suite. Timeout was performed. Patient was carefully positioned flat Juve table with pillows. MAC anesthesia sedation was performed. Back was prepped and draped in usual fashion. Timeout was again performed. C-arm AP and lateral view was then taken. 2 C-arms were positioned in a way that L2 was centralized and superior endplate was parallel to the beams. Spinous process was centered between the pedicles. Point of entry was marked with skin marker. local anesthetic was injected subcutaneously. Small stab incision was placed toallow Jamshidi needle. The Jamshidi needle was then taken down up to the lateral edge of the pedicle seen on AP view and confirmed the lateral view. Jamshidi needle was then malleted into the bone up to the medial wall of the pedicle seen on AP view and confirmed on lateral view to be inside the body. This was then advanced to the anterior third of the vertebral bodies. This was done on both sides. Stylette was removed. Core biopsy was performed. Drill was utilized up to balloon size. Balloon was inserted. The balloon was inflated with radiopaque dye and evaluated on AP lateral C-arm images. Once adequate expansion of the balloon was noticed, the balloons were emptied and removed. Cement was mixed. Once the cement consistency was puttylike, this was slowly inserted into the vertebral body through both Jamshidi needles. AP lateral views were confirmed to make sure no cement extravasation occurs. Once adequate cement was placed, time was given to allow cement setting. Jamshidi needles were then removed. Steri- Strips were applied along with 4 x 4 and Tegaderm. AP lateral views showed good cement fill. Patient was then taken to PACU in stable condition and will be discharged from their home. I was present for the entire case. Surgical Findings: See operative note Complications Complications: No 12/30/24 1414 Cosigner Signature (if applicable): CC: Dr. Daniel Hall MD; Dr. Mike Malagon MD; Dr. Kevin Caballero DO; Dr. Sveta Macias DO; SILVIA GUTHRIE~ Signed [facility]05-12-2025 Progress note Author [facility] Note Date/Time December 30, 2024 12:09 pm [facility] Medical Records Department [address] [place] [address] Progress Note - Orthopedic 12/30/24 1205 MR#: [id number] Acct: [id number] Name: LESLI ROSALES Rep #:[id number] : 1940 84 From: Mike Malagon MD PCP: SILVIA GUTHRIE Status:ADM IN Location: MS3 [id number] Subjective Subjective Saw patient in preop. Continues to have low back pain and some radiation towards bilateral hips. No other changes. Objective Data Objective Data Vital Signs: Vital Signs Temp Pulse Resp BP Pulse Ox O2 Del Method O2 Flow Rate 98.8 F 67 16 134/64 H 98 Nasal Cannula 2 12/30/24 10:43 12/30/24 10:43 12/30/24 10:43 12/30/24 10:43 12/30/24 10:43 12/30/24 10:43 12/30/24 10:43 Oxygen Flow Rate (L/min) 2 Oxygen Delivery Method Nasal Cannula Weight: 141 lb 12.116 oz Body Mass Index (BMI) 27.8 Intake & Output: Intake and Output for Last 24 Hours 12/28/24 12/29/24 12/30/24 23:59 23:59 23:59 Intake Total 400 / 500 100 / 100 Balance 400 / 500 100 / 100 Lab / Micro Data 12/29/24 05:05 12/29/24 05:05 Micro: Microbiology 12/24/24 22:25 Urine, Clean Catch Urine Culture - Final Escherichia coli Proteus mirabilis Physical Exam Narrative Examination of the back shows midline and paraspinal tenderness throughout the lumbar spine. Difficult to assess for spinous process tenderness. Neurologic bilateral lower extremity shows 5 x 5 power normal shows normal sensations in all dermatomes. Assessment & Plan Assessment/Plan (1) Burst fracture of lumbar vertebra: QUALIFIERS: Encounter type: subsequent encounter Fracture type: closed Fracture healing: with delayed healing Qualified Code(s): S32.001G - Stable burst fracture of unspecified lumbar vertebra, subsequent encounter for fracture with delayed healing (2) Compression fracture of L3 vertebra: QUALIFIERS: Encounter type: sequela Qualified Code(s): S32.030S -Wedge compression fracture of third lumbar vertebra, sequela (3) Osteopenia determined by x-ray: PLAN: Plan Again reviewed CT of lumbar spine done on 12/24/2024, MRI done on on 12/25/2024, CT chest abdomen pelvis done on 11/17/2024, upright x-ray from Monday. The CT from October did show an L3 compression fracture which is unchanged in the current CT suggesting that the L3 fracture is old. The L2 vertebra shows a burst fracture confirmed on MRI to be acute, as this was not present in October CT. There is significant intravertebral hematoma as well as a small epidural hematoma suggesting this is acute versus subacute. Kummel lesion cannot be ruledout due to the well-defined fluid signal within the vertebra, also considering that the trauma was in August. Infectious or neoplastic pathology can also notbe ruled out as the MRI report seems inconclusive regarding this. CT chest abdomen pelvis from October did not report any obvious known tumors in those areasto be source of metastasis. Lumbar x-ray shows significant height loss at L2, but unchanged L3. Patient has had a UTI but has been treated with antibiotics for the last few days. Patient has been off of Xarelto. I discussed treatment options for her. As neoplastic lesion cannot be completely ruled out, her options would be to do a delayed interval MRI versus abiopsy, and likely cement augmentation at the same setting. Explained to her that cement augmentation may not be completely risk-free for her. She has a burst fracture component with epidural hematoma, she has been on blood thinners,cement extravasation and epidural hematoma would be serious risks for this procedure. Despite these additional risks, patient has been having difficulty with ambulation due to severe pain and would like to proceed with cement augmentation. All risk benefits and alternatives were discussed. L2 kyphoplasty will be the procedure. The risks include but are not limited to infection, bleeding, hematoma formation, nerve injury, cement extravasation, DVT, pulmonary embolism, epidural hematoma, persistent pain, persistent numbnessand weakness, persistent difficulty with ambulation, pneumonia, atelectasis, cement embolism, hypotension, cardiopulmonary event. Patient understands and agrees to proceed with L2 kyphoplasty. Consent was signed. Charges/Coding Visit Charges Inpatient E&M: 03623 Subs Hosp L3 12/30/24 1209 <Electronically signed by Mike Malagon MD> Cosigner Signature (if applicable): CC: ~ Signed [facility] Work Phone: 1(133) 284-741305-12-2025 Consult note [facility] Medical Records Department [address] [place] [id number] Pre-Anesthesia Evaluation 12/30/24 1220 MR#: [id number] Acct: [id number] Name: LESLI ROSALES Rep #:[id number] : 1940 84 From: Donta Mcmillan MD PCP: SILVIA GUTHRIE Status:ADM IN Y Race: C Location: [facility] -1 ASA Classification* ASA Classification ASA Classification: 3 Assessment & Plan Anesthesia* Anesthesia Assessment Anesthesia Assessment: Discussed sedation and/or anesthesia options, risks, benefits, and alternatives with patient/parents/legal guardian/POA. Questions invited. The patient/parents/legal guardian/POA seems to understand and agrees to proceedwith anesthesia plan. Reviewed the physical assessment, medical history, allergy history and patient home medications list prior to surgery/procedure/anesthetic and documented any changes. Performed airway and anesthesia risk assessments. Anesthesia Type Anesthesia Type: MAC History Source History Obtained from:: Patient and Chart Anesthesia Focused Assessment* Temperature: 98.8 F Pulse Rate: 67 Blood Pressure: 134/64 Respiratory Rate: 16 Pulse Ox: 98 Oxygen Delivery Method: Room Air Oxygen Flow Rate (L/min): 2 Airway Assessment Mouth opens: >3 cm Mallampati Score: III Teeth Condition: Intact Neck Range of motion (ROM): Limited ROM (Somewhat decreased extension) Comment: Short thyromental distance Focused Labs Anesthesia Preop lab: CBC WBC 7.2 K/mm3 (4.4-11.0) 12/29/24 05:05 12/29/24 RBC 3.76 M/mm3 (4.2-5.4) L 12/29/24 05:05 12/29/24 Hgb 12.2 g/dL (12.0-15.0) 12/29/24 05:05 12/29/24 Hct 38.1 % (37-47) 12/29/24 05:05 12/29/24 Plt Count 141 K/mm3 (150-450) L 12/29/24 05:05 12/29/24 CHEMISTRY Potassium 4.3 mmol/L (3.3-5.1) 12/29/24 05:05 12/29/24 Sodium 141 mmol/L (133-145) 12/29/24 05:05 12/29/24 Magnesium 2.1 mg/dL (1.5-2.2) 12/24/24 16:20 12/24/24 Phosphorus 3.0 mg/dL (2.7-4.5) 12/26/24 05:49 12/26/24 BUN 15 mg/dL (4-19) 12/29/24 05:05 12/29/24 Creatinine 0.37 mg/dL (0.70-1.20) L 12/29/24 05:05 Glucose 76 mg/dL (70-99) 12/29/24 05:05 12/29/24 POC Glucose 116 mg/dL (74-106) H 12/28/24 12:13 12/28/24 TSH 1.160 uIU/mL (0.300-4.200) 12/24/24 16:20 05/0 02/12 COAG PT 18.8 SECONDS (11.7-14.9) H 11/18/24 02:55 10/21 09/14 Pre-Assessment Diagnosis/Proposed Procedure Planned Operative Procedure(s): Kyphoplasty Anesthesia History Anesthesia History - ethernet network architect: Anesthesia History - ethernet network architect Hx Hospitalization Any Problems With Anesthesia No 12/29/24 19:49 Cholinesterase deficiency No 12/29/24 19:49 You/Your Family Experience No 12/29/24 19:49 fever (hyperthermia) with Relationship Recent Exposure to Contagious No 12/29/24 19:49 Disease Does patient have nerve No 12/29/24 19:49 stimulator Patient instructed to have No 12/29/24 19:49 device shut off --Does patient have Pacemaker No 12/30/24 10:43 or ICD? When Was Last Pacemaker Check QUESTION #4 FULL TEXT: You/Your Family Experience fever (hyperthermia) with Anesthesia Last Oral Intake Last Oral intake: Last Oral Intake NPO since 00:00 12/30/24 10:43 Meds taken in AM with sips of Yes 12/30/24 10:43 water? Meds patient instructed to atenolol 12/30/24 10:43 take am of surgery PONV PONV - ethernet network architect: PONV - ethernet network architect Female HX of Motion Sickness HX of N/V After Surgery Non-Smoker Duration of Surgery greater than 60 minutes Number of Risk Factors PONV Score Height & Weight Height & Weight: Anesthesia: Height & Weight Height 4 ft 11.84 in 12/30/24 10:43 Weight: 64.3 kg 12/30/24 10:43 Body Mass Index (BMI) 27.8 12/30/24 10:43 Respiratory Assessment Respiratory Assessment - ethernet network architect: Respiratory Tract Infection Hx - ethernet network architect Hx Respiratory Tract Infection Yes: pneumonia 12/29/24 19:49 Any additional information?: Yes Hx Respiratory Tract Infection: Yes (Pneumonia was back in August. She is now clear.) STOP Sleep Apnea STOP Sleep Apnea - ethernet network architect: STOP Sleep Apnea - ethernet network architect Hx Hypertension Yes 12/25/24 13:07 Hx Sleep Apnea No 12/24/24 21:20 CPAP BIPAP Do you snore loudly (louder No 12/24/24 21:20 than talking or can be heard Do you often feel tired/ No 12/24/24 21:20 fatigued/ sleepy during daytime? Has anyone observed you stop No 12/24/24 21:20 breathing during sleep? STOP Results Negative 12/24/24 21:20 QUESTION #5 FULL TEXT : Do you snore loudly (louder than talking or can be heard through closeddoors)? Tobacco Use History Tobacco Use History - ethernet network architect: Tobacco Use History - ethernet network architect Tobacco Use Smoking Status Former smoker 12/24/24 21:20 Hx Tobacco Use No 12/24/24 21:20 Years Smoking Packs Smoked per Day Smoking Cessation Date was No - quit smoking greater 12/24/24 21:20 within the last 15 years than 15 years ago Hx Smoking Cessation Date 08/21/75 12/24/24 21:20 Hx Smoking Cessation Counseling Hematologic Medial History Hematologic Hx - ethernet network architect: Hematologic Medical Hx - dental insurance coordinator Hx of Blood Transfusion No 12/24/24 21:20 Hx of Transfusion in last 3 No 12/24/24 21:20 Months Date of Last Transfusion (if within last 3 months) Ever experience any problems No 12/24/24 21:20 with transfusion(s)? Specify any problems Hx of Preganancy in last 3 N/A 12/24/24 21:20 Months Nurse Filling Out Transfusion [id number] 12/24/24 21:20 & Questions: Date: 12/24/24 12/24/24 21:20 Time: 21:22 12/24/24 21:20 Patient unable to answer at this time (ie. confused, unrespo /Reproduction History /Reproductive History - ethernet network architect: /Reproductive Hx- ethernet network architect Hx Now No 12/29/24 19:49 Gestational Age (in weeks): EDC: Hx Hx Para Hx Section SAB No 12/29/24 19:49 Active Medications Active Medications: Current Medications Generic Name Dose Route Start Last Admin Trade Name Freq PRN Reason Stop Dose Admin Acetaminophen 1,000 mg 12/25/24 14:00 12/30/24 05:49 Acetaminophen 500 Mg Tablet PO Not Given Q8 SUKHJINDER Albuterol Sulfate 2.5 mg 12/24/24 21:14 Albuterol 2.5 Mg/3 Ml Vial.Neb. INHALATION Q4H PRN PRN dyspnea Atenolol 25 mg 12/25/24 10:00 12/30/24 08:32 Atenolol 25 Mg Tablet PO 25 mg DAILY SUKJHINDER Administration Protocol Calamine/Phenol 1 applic 12/24/24 22:00 12/29/24 21:04 Menthol/Lanolin/Calamine/Znox 113 Gm Tube TOPICAL 1 applic BID SUKHJINDER Administration Protocol Calcium Carbonate 500 mg 12/25/24 08:00 12/29/24 16:39 Calcium Carbonate 500 Mg Tablet PO 500 mg TIDCM SUKHJINDER Administration Cholecalciferol 50 mcg 12/25/24 10:00 12/29/24 08:54 Cholecalciferol (Vit D3) 25 Mcg Tablet (1,000 Units) PO 50 mcg DAILY SUKHJINDER Administration Enoxaparin Sodium 40 mg 12/26/24 20:00 12/29/24 08:53 Enoxaparin 40 Mg/0.4 Ml Syringe SC 40 mg DAILY SUKHJINDER Administration Famotidine 20 mg 12/25/24 10:00 12/29/24 08:54 Famotidine 20 Mg Tablet PO 20 mg DAILY SUKHJINDER Administration Folic Acid 1 mg 12/25/24 08:00 12/29/24 08:54 Folic Acid 1 Mg Tablet PO 1 mg BREAKFAST SUKHJINDER Administration Hydralazine HCl 5 mg 12/24/24 20:57 Hydralazine 20 Mg/Ml Vial IV Q8H PRN PRN SBP GREATER THAN 160 Protocol Sodium Chloride 250 mls @ 15 mls/hr 12/24/24 20:58 IV .[id number] PRN Saline Flush Lactated Ringer's 1,000 mls @ 15 mls/hr 12/30/24 12:00 12/30/24 11:59 IV 15 mls/hr .Q48H SUKHJINDER Administration Ipratropium [place] 0.5 mg 12/24/24 21:15 Ipratropium 0.5 Mg/2.5 Ml Solution INHALATION Q6H PRN PRN shortness of breath Lidocaine 2 patch 12/25/24 10:00 12/29/24 08:53 Lidocaine 5% Patch TOPICAL 2 patch DAILY SUKHJINDER Administration Protocol Magnesium Hydroxide 30 ml 12/24/24 20:57 12/28/24 13:49 Magnesium Hydroxide 30 Ml Udc PO 30 ml DAILY PRN PRN Administration Constipation Melatonin 3 mg 12/24/24 20:57 12/28/24 20:41 Melatonin 3 Mg Tablet PO 3 mg QHS PRN PRN Administration INSOMNIA Morphine Sulfate 2 mg 12/24/24 20:57 12/25/24 02:40 Morphine 2 Mg/Ml Syringe IV 2 mg Q4H PRN PRN Administration Pain Score 6-10 Nystatin 1 applic 12/24/24 22:00 12/29/24 21:04 Nystatin Powder 15gm Bottle TOPICAL 1 applic BID [facility] Administration Protocol Ondansetron HCl 4 mg 12/24/24 20:57 12/30/24 09:47 Ondansetron 4 Mg/2 Ml Vial IV 4 mg Q8H PRN PRN Administration NAUSEA/VOMITING Oxycodone HCl 5 mg 12/25/24 07:30 12/29/24 16:48 Oxycodone 5 Mg Tablet PO 5 mg Q4H PRN PRN Administration Pain Score 4-5 or Pre PT/OT Polyethylene Glycol 17 gm 12/25/24 10:00 12/29/24 10:27 Polyethylene Glycol 3350 17 Gm Packet PO Not Given DAILY SUKHJINDER Promethazine HCl 12.5 mg 12/24/24 20:57 Promethazine 25 Mg/Ml Syringe IM Q6H PRN PRN Breakthrough nausea/vomiting Rivaroxaban 20 mg 12/25/24 10:00 Rivaroxaban 20 Mg Tablet PO DAILY SUKHJINDER Senna/Docusate Sodium 2 tablet 12/25/24 07:32 12/28/24 20:41 Senna/Docusate Sodium 1 Tablet PO 2 tablet DAILY PRN PRN Administration CONSTIPATION Sodium Chloride 10 - 40 ml 12/24/24 20:58 12/30/24 09:47 0.9% Saline Lock 10 Ml Syringe IV 10 ml UD PRN Administration SALINE FLUSH Tizanidine HCl 2 mg 12/25/24 09:01 12/29/24 05:20 Tizanidine Hcl 2 Mg Tablet PO 2 mg Q8H PRN PRN Administration spasm PFSH Medical History Anxiety Depression Chronic pain GERD (gastroesophageal reflux disease) On home oxygen therapy Atrial fibrillation Congestive heart failure (CHF) Hypertension Shingles Psoriatic arthritis COPD (chronic obstructive pulmonary disease) A-fib Home Medications ?Medication ?Instructions ?Recorded ?Last Taken ?Type atenolol 25 mg tablet 25 mg PO DAILY Atrial fibril lation 06/26/21 12/30/24 H istory famotidine 20 mg tablet 20 mg PO DAILY 06/26/2102/12 History folic acid 1 mg tablet 1 mg PO DAILY supplement 02/0812/24/24 History rivaroxaban 20 mg tablet (Xarelto) 20 mg PO DAILY 02/0812/24/24 History cholecalciferol (vitamin D3) 50 50 mcg PO DAILY 12/24/24 History mcg (2,000 unit) capsule furosemide 20 mg tablet 20 mg PO DAILY 11/17/24 Unkn own History albuterol sulfate 90 mcg/actuation 2 puff inhalation Q 6H PRN dyspnea 11/18/24 Unknown History aerosol inhaler tiotropium bromide 18 mcg capsule 1 cap inhalation RUTH LY PRN 11/18/24 12/24/24 History with inhalation device (Spiriva shortness of breath with HandiHaler) lidocaine 5 % topical patch 2 patch topical DAILY #0 e a 11/24/24 Unknown Rx oxycodone-acetaminophen 5 mg-325 1 tab PO TID PRN pain 12/24/24 Unknown History mg tablet risankizumab-rzaa 150 mg/mL 150 mg subcut Q90D 5 12/18/24 History subcutaneous pen injector (Skyrizi) Allergy/AdvReac Type Severity Reaction Status Date / Time No Known Allergies Allergy Verified 12/24/24 15:23 Surgical History History of partial hysterectomy History of bladder suspension procedure History of appendectomy History of cholecystectomy H/O hernia repair Social History household members: none Smoking Status: Former smoker substance use type: does not use Review of Systems (Anesthesia) ROS Narrative System reviewed and no additional complaints, except as documented. 12/30/24 1245 sheila POLANCO> Date _ Donta Mcmillan MD Cosigner Signature: Date CC: ~ [facility]igned [facility]05[facility]2025 Progress note [facility] Medical Records Department [address] [place] [address] Progress Note - Orthopedic 12/30/24 1205 MR#: [id number] Acct: [id number] Name: LESLI ROSALES Rep #:[id number] : 1940 84 From: Mike Malagon MD PCP: SILVIA GUTHRIE Status:ADM IN Location: MS3 GC711-1 Subjective Subjective Saw patient in preop. Continues to have low back pain and some radiation towards bilateral hips. Noother changes. Objective Data Objective Data Vital Signs: Vital Signs Temp Pulse Resp BP Pulse Ox O2 Del Method O2 Flow Rate 98.8 F 67 16 134/64 H 98 Nasal Cannula 2 12/30/24 10:43 12/30/24 10:43 12/30/24 10:43 12/30/24 10:43 12/30/24 10:43 12/30/24 10:43 12/30/24 10:43 Oxygen Flow Rate (L/min) 2 Oxygen Delivery Method Nasal Cannula Weight: 141 lb 12.116 oz Body Mass Index (BMI) 27.8 Intake & Output: Intake and Output for Last 24 Hours 12/28/24 12/29/24 12/30/24 23:59 23:59 23:59 Intake Total 400 / 500 100 / 100 Balance 400 / 500 100 / 100 Lab / Micro Data 12/29/24 05:05 12/29/24 05:05 Micro: Microbiology 12/24/24 22:25 Urine, Clean Catch Urine Culture - Final Escherichia coli Proteus mirabilis Physical Exam Narrative Examination of the back shows midline and paraspinal tenderness throughout the lumbar spine. Difficult to assess for spinous process tenderness. Neurologic bilateral lower extremity shows 5 x 5 powernormal shows normal sensations in all dermatomes. Assessment & Plan Assessment/Plan (1) Burst fracture of lumbar vertebra: QUALIFIERS: Encounter type: subsequent encounter Fracture type: closed Fracture healing: with delayed healing Qualified Code(s): S32.001G - Stable burst fracture of unspecified lumbar vertebra, subsequent encounter for fracture with delayed healing (2) Compression fracture of L3 vertebra: QUALIFIERS: Encounter type: sequela Qualified Code(s): S32.030S -Wedge compression fracture of third lumbar vertebra, sequela (3) Osteopenia determined by x-ray: PLAN: Plan Again reviewed CT of lumbar spine done on 12/24/2024, MRI done on on 12/25/2024, CT chest abdomen pelvis done on 11/17/2024, upright x-ray from Monday. The CT from October did show an L3 compression fracture which is unchanged in the current CT suggesting that the L3 fracture is old. The L2 vertebra shows a burst fracture confirmed on MRI to be acute,as this was not present in October CT. There is significant intravertebral hematoma as well as a small epidural hematoma suggesting this is acute versus subacute. Kummel lesion cannot be ruledout due to the well-defined fluid signal within the vertebra, also considering that the trauma was in August. Infectious or neoplastic pathology can also notbe ruled out as the MRI report seems inconclusive regarding this. CT chest abdomen pelvis from October did not report any obvious known tumors in those areasto be source of metastasis. Lumbar x-ray shows significant height loss at L2, but unchanged L3. Patient has had a UTI but has been treated with antibiotics for the last few days. Patient has been off of Xarelto. I discussed treatment options for her. As neoplastic lesion cannot be completely ruled out, her options would be to do a delayed interval MRI versus abiopsy, and likely cement augmentation at the same setting. Explained to her that cement augmentation may not be completely risk-free for her. She has a burst fracture component with epidural hematoma, she has been on blood thinners,cement extravasation and epidural hematoma would be serious risks for this procedure. Despite these additional risks, patient has been having difficulty with ambulation due to severe pain and would like to proceed with cement augmentation. All risk benefits and alternatives were discussed. L2 kyphoplasty will be the procedure. The risks include but are not limited to infection, bleeding, hematoma formation, nerveinjury, cement extravasation, DVT, pulmonary embolism, epidural hematoma, persistent pain, persistent numbnessand weakness, persistent difficulty with ambulation, pneumonia, atelectasis, cement embolism, hypotension, cardiopulmonary event. Patient understands and agrees to proceed with L2 kyphoplasty. Consent was signed. Charges/Coding Visit Charges Inpatient E&M: 53300 Subs Hosp L3 12/30/24 1208 Cosigner Signature (if applicable): CC: ~ Signed [facility]05[facility]11[facility]2025 Progress note Author Sveta Macias [facility] Note Date/Time December 29, 2024 12:36 pm [facility] Medical Records Department [address] [place] [address] Progress Note - Hospitalist 12/29/24 0725 MR#: [id number] Acct: [id number] Name: LESLI ROSALES Rep #:[id number] : 1940 84 From: Sveta Macias DO PCP: SILVIA GUTHRIE Status:ADM IN Location: MS3 [id number] Reason for Visit Reason for Visit: Intractable back pain Subjective Subjective Patient states she is having ongoing constipation issues despite aggressive treatment. Is requesting a suppository and possibly an enema if no success withthat. Has tried prune juice as well. States she was told that her kyphoplasty will be about 08/01/1930 tomorrow. Objective Data Objective Data Vital Signs: Vital Signs Temp Pulse Resp BP Pulse Ox O2 Del Method O2 Flow Rate 98.2 F 61 20 H 115/66 94 Nasal Cannula 2 12/29/24 05:17 12/29/24 05:17 12/29/24 05:17 12/29/24 05:17 12/29/24 05:17 12/29/24 05:24 12/29/24 05:24 Oxygen Flow Rate (L/min) 2 Oxygen Delivery Method Nasal Cannula Weight: 64.9 kg Body Mass Index (BMI) 28.0 Intake & Output: Intake and Output for Last 24 Hours 12/27/24 12/28/24 12/29/24 23:59 23:59 23:59 Intake Total 350 / 550 400 / 500 100 / 100 Balance 350 / 550 400 / 500 100 / 100 Lab / Micro Data 12/29/24 05:05 12/29/24 05:05 Labs: Laboratory Results - last 24 hr 12/28/24 12:13: POC Glucose 116 H 12/29/24 05:05: WBC 7.2, RBC 3.76 L, Hgb 12.2, Hct 38.1, MCV 101.3 H, MCH 32.4 H, MCHC 32.0, RDW Std Deviation 53.4 H, RDW Coeff of Mildred 14.4, Plt Count 141 L, MPV 10.5, Sodium 141, Potassium 4.3, Chloride 106, Carbon Dioxide 29.9, Anion Gap 5, BUN 15, Creatinine 0.37 L, Estim Creat Clear Calc 44.80 L, Est GFR (MDRD)Non-Af 100, BUN/Creatinine Ratio 42.2 H, Glucose 76, Calcium 9.0 Micro: Microbiology 05/06/25 22:25 Urine, Clean Catch Urine Culture - Final Escherichia coli Proteus mirabilis Physical Exam Const alert, oriented x3, no apparent distress, average body habitus and well nourished; Negative for healthy appearing Constitutional Narrative: Elderly, white female, lying in her right side in right side-lying, appears comfortable, nontoxic General Appearance: cooperative HEENT normocephalic, head/scalp atraumatic and moist oral mucous membranes Resp normal respiratory effort, no retractions, no use of accessory muscles and clearto auscultation bilaterally Auscultation: Negative for rales, rhonchi or wheezes Cardio regular rate, regular rhythm, S1 normal heart sound, S2 normal heart sound, no murmurs, no rub, no gallops and no clicks GI GI Narrative: Very mild distention, bowel sounds are normal, abdomen is soft, nontender Extremity no clubbing, cyanosis or edema Extremity Narrative: Pedal pulses are 2+ Neuro oriented x3, moves all extremities and no focal motor deficits Neuro Narrative: Increased pain with movement which limits strength but no significant focal deficits noted Speech: speech normal Psych affect normal Psych Narrative: Eye contact is good and patient interacts appropriately, laughing and joking today Assessment & Plan Assessment/Plan (1) Intractable back pain: (2) Abnormal finding on urinalysis: (3) Compression fracture of L2: (4) Compression fracture of L3 vertebra: QUALIFIERS: Encounter type: sequela Qualified Code(s): S32.030S -Wedge compression fracture of third lumbar vertebra, sequela PLAN: Plan Intractable low back pain secondary to compression fracture at L2 and L3 due to osteoporosis - CT is suspicious for osteolytic lesions in the thoracic and lumbar spine - Interestingly alk phos is not really that elevated which would be more consistent with metastatic disease - MRI was performed and shows burst fracture with mild retropulsion resulting inmild focal spinal canal stenosis with tiny posterior epidural hematoma suspected, heterogeneous marrow signal with diffuse marrow replacement in the [id number] body, large left periaortic lymph node and multilevel spondylosis without high-grade spinal canal or foraminal stenosis - Continue to hold Xarelto has been off since she has been admitted - Continue lidocaine patch - Continue scheduled Tylenol - Continue muscle relaxants as ordered as needed - Continue as needed oral oxycodone - Continue morphine IV for breakthrough pain - Continue calcium supplementation - Continue home vitamin D supplementation as level is greater than 30 - Orthopedic surgery is planning for kyphoplasty on Monday - PT/OT consultation but hold off until after evaluated by orthopedic surgery Constipation - Continue current bowel regimen which is quite aggressive - Will give 1 suppository - If suppository does not work we will consider enema - Encouraged patient to drink prune juice E. coli and Proteus UTI - Urine culture was sent for dysuria and low culture CFU's are low patient was symptomatic and potentially having procedure so we will complete a course for uncomplicated UTI -Continue ceftriaxone for total of 5 days IV with today being day 5 of 5 -Stop antibiotics as she has received her last dose Generalized weakness and debility secondary to the above - Plan is for [facility]--> anticipate Monday-- - case management manager consulted PAF - Rivaroxaban on hold due to the above--restart once okay with> orthopedic surgery - Continue home atenolol - Remains in sinus rhythm GERD - Continue home famotidine Essential hypertension - Continue home Lasix - Continue atenolol - As needed hydralazine for systolic pressure greater than 160 History of psoriatic arthritis - Restart biologic at discharge Depression - Patient is not on any medications - monitor clinically COPD - Continue home inhalers Tobacco abuse - Remote and patient has quit DVT prophylaxis - Home Xarelto on hold - Continue enoxaparin 40 daily CODE STATUS -Full code Charges/Coding Visit Charges Inpatient E&M: 94041 Subs Hosp L2 12/29/24 1236 <Electronically signed by Sveta Macias DO> Cosigner Signature (if applicable): CC: ~ Signed [facility] Work Phone: 1(186) 866-719105-11-2025 Progress note [facility] Medical Records Department [address] [place] [address] Progress Note - Hospitalist 12/29/24 0725 MR#: [id number] Acct: [id number] Name: LESLI ROSALES Rep #:[id number] : 1940 84 From: Sveta Macias DO PCP: SILVIA GUTHRIE Status:ADM IN Location: MA3 BU054-1 Reason for Visit Reason for Visit: Intractable back pain Subjective Subjective Patient states she is having ongoing constipation issues despite aggressive treatment. Is requesting a suppository and possibly an enema if no success withthat. Has tried prune juice as well. States she was told that her kyphoplasty will be about 08/01/1930 tomorrow. Objective Data Objective Data Vital Signs: Vital Signs Temp Pulse Resp BP Pulse Ox O2 Del Method O2 Flow Rate 98.2 F 61 20 H 115/66 94 Nasal Cannula 2 12/29/24 05:17 12/29/24 05:17 12/29/24 05:17 12/29/24 05:17 12/29/24 05:17 12/29/24 05:24 12/29/24 05:24 Oxygen Flow Rate (L/min) 2 Oxygen Delivery Method Nasal Cannula Weight: 64.9 kg Body Mass Index (BMI) 28.0 Intake & Output: Intake and Output for Last 24 Hours 12/27/24 12/28/24 12/29/24 23:59 23:59 23:59 Intake Total 350 / 550 400 / 500 100 / 100 Balance 350 / 550 400 / 500 100 / 100 Lab / Micro Data 12/29/24 05:05 12/29/24 05:05 Labs: Laboratory Results - last 24 hr 12/28/24 12:13: POC Glucose 116 H 12/29/24 05:05: WBC 7.2, RBC 3.76 L, Hgb 12.2, Hct 38.1, MCV 101.3 H, MCH 32.4 H, MCHC 32.0, RDW Std Deviation 53.4 H, RDW Coeff of Mildred 14.4, Plt Count 141 L, MPV 10.5, Sodium 141, Potassium 4.3, Chloride 106, Carbon Dioxide 29.9, Anion Gap 5, BUN 15, Creatinine 0.37 L, Estim Creat Clear Calc 44.80L, Est GFR (MDRD)Non-Af 100, BUN/Creatinine Ratio 42.2 H, Glucose 76, Calcium 9.0 Micro: Microbiology 12/24/24 22:25 Urine, Clean Catch Urine Culture - Final Escherichia coli Proteus mirabilis Physical Exam Const alert, oriented x3, no apparent distress, average body habitus and well nourished; Negative for healthy appearing Constitutional Narrative: Elderly, white female, lying in her right side in right side-lying, appears comfortable, nontoxic General Appearance: cooperative HEENT normocephalic, head/scalp atraumatic and moist oral mucous membranes Resp normal respiratory effort, no retractions, no use of accessory muscles and clearto auscultation bilaterally Auscultation: Negative for rales, rhonchi or wheezes Cardio regular rate, regular rhythm, S1 normal heart sound, S2 normal heart sound, no murmurs, no rub, no gallops and no clicks GI GI Narrative: Very mild distention, bowel sounds are normal, abdomen is soft, nontender Extremity no clubbing, cyanosis or edema Extremity Narrative: Pedal pulses are 2+ Neuro oriented x3, moves all extremities and no focal motor deficits Neuro Narrative: Increased pain with movement which limits strength but no significant focal deficits noted Speech: speech normal Psych affect normal Psych Narrative: Eye contact is good and patient interacts appropriately, laughing and joking today Assessment & Plan Assessment/Plan (1) Intractable back pain: (2) Abnormal finding on urinalysis: (3) Compression fracture of L2: (4) Compression fracture of L3 vertebra: QUALIFIERS: Encounter type: sequela Qualified Code(s): S32.030S -Wedge compression fracture of third lumbar vertebra, sequela PLAN: Plan Intractable low back pain secondary to compression fracture at L2 and L3 due to osteoporosis - CT is suspicious for osteolytic lesions in the thoracic and lumbar spine - Interestingly alk phos is not really that elevated which would be more consistent with metastaticdisease - MRI was performed and shows burst fracture with mild retropulsion resulting inmild focal spinal canal stenosis with tiny posterior epidural hematoma suspected, heterogeneous marrow signal with diffuse marrow replacement in the I8nnjejhaul body, large left periaortic lymph node and multilevel spondylosis without high-grade spinal canal or foraminal stenosis - Continue to hold Xarelto has been off since she has been admitted - Continue lidocaine patch - Continue scheduled Tylenol - Continue muscle relaxants as ordered as needed - Continue as needed oral oxycodone - Continue morphine IV for breakthrough pain - Continue calcium supplementation - Continue home vitamin D supplementation as level is greater than 30 - Orthopedic surgery is planning for kyphoplasty on Monday - PT/OT consultation but hold off until after evaluated by orthopedic surgery Constipation - Continue current bowel regimen which is quite aggressive - Will give 1 suppository - If suppository does not work we will consider enema - Encouraged patient to drink prune juice E. coli and Proteus UTI - Urine culture was sent for dysuria and low culture CFU's are low patient was symptomatic and potentially having procedure so we will complete a course for uncomplicated UTI -Continue ceftriaxone for total of 5 days IV with today being day 5 of 5 -Stop antibiotics as she has received her last dose Generalized weakness and debility secondary to the above - Plan is for [facility]--> anticipate Monday-- - case management manager consulted PAF - Rivaroxaban on hold due to the above--restart once okay with> orthopedic surgery - Continue home atenolol - Remains in sinus rhythm GERD - Continue home famotidine Essential hypertension - Continue home Lasix - Continue atenolol - As needed hydralazine for systolic pressure greater than 160 History of psoriatic arthritis - Restart biologic at discharge Depression - Patient is not on any medications - monitor clinically COPD - Continue home inhalers Tobacco abuse - Remote and patient has quit DVT prophylaxis - Home Xarelto on hold - Continue enoxaparin 40 daily CODE STATUS -Full code Charges/Coding Visit Charges Inpatient E&M: 73320 Subs Hosp L2 12/29/24 1236 Cosigner Signature (if applicable): CC: ~ Signed [facility]05-10-2025 Progress note Author Sveta Macias [facility] Note Date/Time December 28, 2024 1:20p m [facility] Medical Records Department [address] [place] [address] Progress Note - Hospitalist 12/28/2416 MR#: [id number] Acct: [id number] Name: LESLI ROSALES Rep #:[id number] : 1940 84 From: Sveta Macias DO PCP: SILVIA GUTHRIE Status:ADM IN Location: MS3 JJ307-7 Reason for Visit Reason for Visit: Back pain-intractable Subjective Subjective Complaining of bilateral hip pain with pain that radiates down the legs. She states the left is worse than right and this is not new. Awaiting for her procedure on Monday. She is asking for stronger pain medicine however we have her on a pretty aggressive regimen there is nothing really to add. She is not painful while she is in bed only when she attempts to move. Objective Data Objective Data Vital Signs: Vital Signs Temp Pulse Resp BP Pulse Ox O2 Del Method O2 Flow Rate 98 F 65 16 144/65 H 96 Room Air 2 12/28/24 06:10 12/28/24 06:10 12/28/24 06:10 12/28/24 06:10 12/28/24 06:10 12/28/24 06:10 12/27/24 22:46 Oxygen Flow Rate (L/min) 2 Oxygen Delivery Method Room Air Weight: 65.5 kg Body Mass Index (BMI) 28.3 Intake & Output: Intake and Output for Last 24 Hours 12/26/24 12/27/24 12/28/24 23:59 23:59 23:59 Intake Total 350 / 500 350 / 550 350 / 350 Balance 350 / 500 350 / 550 350 / 350 Lab / Micro Data 12/27/24 06:09 12/27/24 06:09 Labs: Laboratory Results - last 24 hr 12/27/24 11:28: POC Glucose 134 H Micro: Microbiology 12/24/24 22:25 Urine, Clean Catch Urine Culture - Final Escherichia coli Proteus mirabilis Radiography Diagnostic Testing: Radiology Impression Lumbar Spine X-Ray 12/27/24 10:30 IMPRESSION: 1. Moderate compression deformity of L2 vertebral body. 2. Grade 1 anterior spondylolisthesis of L5 on S1 by 1.4 cm. 3. Degenerative changes lumbar spine as described. Reading Location: [facility] Physical Exam Const alert, oriented x3, no apparent distress, average body habitus and well nourished; Negative for healthy appearing Constitutional Narrative: Elderly, white female, lying in her right side in right side-lying, appears comfortable, nontoxic General Appearance: cooperative HEENT normocephalic and head/scalp atraumatic Extremity Extremity Narrative: Pedal pulses are 2+ Psych affect normal Psych Narrative: Eye contact is good and patient interacts appropriately Assessment & Plan Assessment/Plan (1) Intractable back pain: (2) Abnormal finding on urinalysis: (3) Compression fracture of L2: (4) Compression fracture of L3 vertebra: QUALIFIERS: Encounter type: sequela Qualified Code(s): S32.030S -Wedge compression fracture of third lumbar vertebra, sequela PLAN: Plan Intractable low back pain secondary to compression fracture at L2 and L3 due to osteoporosis - CT is suspicious for osteolytic lesions in the thoracic and lumbar spine - Interestingly alk phos is not really that elevated which would be more consistent with metastatic disease - MRI was performed and shows burst fracture with mild retropulsion resulting inmild focal spinal canal stenosis with tiny posterior epidural hematoma suspected, heterogeneous marrow signal with diffuse marrow replacement in the [id number] body, large left periaortic lymph node and multilevel spondylosis without high-grade spinal canal or foraminal stenosis - Patient on Xarelto chronically for A-fib will hold in case procedures are required from orthopedic surgery and/or pain management - Continue lidocaine patch - Continue scheduled Tylenol - Continue muscle relaxants as ordered as needed - Continue as needed oral oxycodone - Continue morphine IV for breakthrough pain - Continue calcium supplementation - Continue home vitamin D supplementation as level is greater than 30 - Orthopedic surgery is planning for kyphoplasty on Monday - PT/OT consultation but hold off until after evaluated by orthopedic surgery E. coli and Proteus UTI - Urine culture was sent for dysuria and low culture CFU's are low patient was symptomatic and potentially having procedure so we will complete a course for uncomplicated UTI -Continue ceftriaxone for total of 5 days IV with today being day 4 of 5 - I do suspect any intervention will require eradication or at least 48 hours oftreatment of her urine if orthopedic surgery or pain management would like to proceed with anything Generalized weakness and debility secondary to the above - Will likely need placement at discharge -Case management is sending referral to [facility]-->hopeful for [facility] Monday> after procedure - case management manager consulted PAF - Rivaroxaban on hold due to the above - Continue home atenolol -Remains in sinus rhythm GERD - Continue home famotidine Essential hypertension - Continue home Lasix - Continue atenolol - As needed hydralazine for systolic pressure greater than 160 History of psoriatic arthritis - Restart biologic at discharge Depression - Patient is not on any medications - monitor clinically COPD - Continue home inhalers Tobacco abuse - Remote and patient has quit DVT prophylaxis - Home Xarelto on hold -Continue enoxaparin 40 daily CODE STATUS -Full code Charges/Coding Visit Charges Inpatient E&M: 56696 Subs Hosp L1 12/28/24 1320 <Electronically signed by Sveta Macias DO> Cosigner Signature (if applicable): CC: ~ Signed [facility] Work Phone: 1(134) 881-181005-10-2025 Progress note [facility] Medical Records Department [address] [place] [address] Progress Note - Hospitalist 05/10/25 0816 MR#: [id number] Acct: [id number] Name: LESLI ROSALES Rep #:[id number] : 1940 84 From: Sveta Macias DO PCP: SILVIA GUTHRIE Status:ADM IN Location: MS3 XO296-5 Reason for Visit Reason for Visit: Back pain-intractable Subjective Subjective Complaining of bilateral hip pain with pain that radiates down the legs. She states the left is worse than right and this is not new. Awaiting for her procedure on Monday. She is asking for stronger pain medicine however we have her on a pretty aggressive regimen there is nothing really to add. Sheis not painful while she is in bed only when she attempts to move. Objective Data Objective Data Vital Signs: Vital Signs Temp Pulse Resp BP Pulse Ox O2 Del Method O2 Flow Rate 98 F 65 16 144/65 H 96 Room Air 2 12/28/24 06:10 12/28/24 06:10 12/28/24 06:10 12/28/24 06:10 12/28/24 06:10 12/28/24 06:10 12/27/24 22:46 Oxygen Flow Rate (L/min) 2 Oxygen Delivery Method Room Air Weight: 65.5 kg Body Mass Index (BMI) 28.3 Intake & Output: Intake and Output for Last 24 Hours 12/26/24 12/27/24 12/28/24 23:59 23:59 23:59 Intake Total 350 / 500 350 / 550 350 / 350 Balance 350 / 500 350 / 550 350 / 350 Lab / Micro Data 12/27/24 06:09 12/27/24 06:09 Labs: Laboratory Results - last 24 hr 12/27/24 11:28: POC Glucose 134 H Micro: Microbiology 12/24/24 22:25 Urine, Clean Catch Urine Culture - Final Escherichia coli Proteus mirabilis Radiography Diagnostic Testing: Radiology Impression Lumbar Spine X-Ray 12/27/24 10:30 IMPRESSION: 1. Moderate compression deformity of L2 vertebral body. 2. Grade 1 anterior spondylolisthesis of L5 on S1 by 1.4 cm. 3. Degenerative changes lumbar spine as described. Reading Location: [facility] Physical Exam Const alert, oriented x3, no apparent distress, average body habitus and well nourished; Negative for healthy appearing Constitutional Narrative: Elderly, white female, lying in her right side in right side-lying, appears comfortable, nontoxic General Appearance: cooperative HEENT normocephalic and head/scalp atraumatic Extremity Extremity Narrative: Pedal pulses are 2+ Psych affect normal Psych Narrative: Eye contact is good and patient interacts appropriately Assessment & Plan Assessment/Plan (1) Intractable back pain: (2) Abnormal finding on urinalysis: (3) Compression fracture of L2: (4) Compression fracture of L3 vertebra: QUALIFIERS: Encounter type: sequela Qualified Code(s): S32.030S -Wedge compression fracture of third lumbar vertebra, sequela PLAN: Plan Intractable low back pain secondary to compression fracture at L2 and L3 due to osteoporosis - CT is suspicious for osteolytic lesions in the thoracic and lumbar spine - Interestingly alk phos is not really that elevated which would be more consistent with metastaticdisease - MRI was performed and shows burst fracture with mild retropulsion resulting inmild focal spinal canal stenosis with tiny posterior epidural hematoma suspected, heterogeneous marrow signal with diffuse marrow replacement in the [id number] body, large left periaortic lymph node and multilevel spondylosis without high-grade spinal canal or foraminal stenosis - Patient on Xarelto chronically for A-fib will hold in case procedures are required from orthopedic surgery and/or pain management - Continue lidocaine patch - Continue scheduled Tylenol - Continue muscle relaxants as ordered as needed - Continue as needed oral oxycodone - Continue morphine IV for breakthrough pain - Continue calcium supplementation - Continue home vitamin D supplementation as level is greater than 30 - Orthopedic surgery is planning for kyphoplasty on Monday - PT/OT consultation but hold off until after evaluated by orthopedic surgery E. coli and Proteus UTI - Urine culture was sent for dysuria and low culture CFU's are low patient was symptomatic and potentially having procedure so we will complete a course for uncomplicated UTI -Continue ceftriaxone for total of 5 days IV with today being day 4 of 5 - I do suspect any intervention will require eradication or at least 48 hours oftreatment of her urine if orthopedic surgery or pain management would like to proceed with anything Generalized weakness and debility secondary to the above - Will likely need placement at discharge -Case management is sending referral to the [facility]-->hopeful for [facility] to [facility] Monday> after procedure - case management manager consulted PAF - Rivaroxaban on hold due to the above - Continue home atenolol -Remains in sinus rhythm GERD - Continue home famotidine Essential hypertension - Continue home Lasix - Continue atenolol - As needed hydralazine for systolic pressure greater than 160 History of psoriatic arthritis - Restart biologic at discharge Depression - Patient is not on any medications - monitor clinically COPD - Continue home inhalers Tobacco abuse - Remote and patient has quit DVT prophylaxis - Home Xarelto on hold -Continue enoxaparin 40 daily CODE STATUS -Full code Charges/Coding Visit Charges Inpatient E&M: 52150 Subs Hosp L1 12/28/24 1320 Cosigner Signature (if applicable): CC: ~ [facility]igned [facility]05[facility]25 Progress note Author [facility] Note Date/Time December 27, 2024 12:23p m [facility] Medical Records Department [address] [place] [address] Progress Note - Orthopedic 12/27/24 1103 MR#: [id number] Acct: [id number] Name: LESLI ROSALES Rep #:[id number] : 1940 84 From: Amairani Choudhary [employer] MECH[employer]IC[employer]C PCP: SILVIA GUTHRIE Status:ADM IN Location: MA3 EB597-1 Subjective Subjective LESLI ROSALES, is a pleasant 84 F admitted for pain control of severe low back pain. She is sitting in a recliner eating breakfast at today's visit. Pt has had severe worsening of low back pain since August when she tried to lift her . She was bedridden for a few weeks after that and then was brought to the hospital for sepsis about a month ago. This was then treated butthen patient was not able to get back to mobility and continue to be bedridden. She was then brought to the hospital on 12/24/2024. Patient says that she has hadsevere low back pain that is better controlled since admission and radiates mainly down L leg, mild to R leg and towards bilateral hips and into the thighs. She denies any weakness in the lower extremities. She denies any known previous cancers. Currently being treated for UTI this admission. Objective Data Objective Data Vital Signs: Vital Signs Temp Pulse Resp BP Pulse Ox O2 Del Method O2 Flow Rate 98.4 F 85 16 108/74 100 Nasal Cannula 2 12/27/24 09:49 12/27/24 09:49 12/27/24 09:49 12/27/24 09:49 12/27/24 09:49 12/27/24 09:49 12/27/24 09:49 Oxygen Flow Rate (L/min) 2 Oxygen Delivery Method Nasal Cannula Weight: 143 lb 11.862 oz Body Mass Index (BMI) 28.2 Intake & Output: Intake and Output for Last 24 Hours 12/25/24 12/26/24 12/27/24 23:59 23:59 23:59 Intake Total 1300 / 1500 350 / 500 300 / 300 Output Total 100 / 100 Balance 1200 / 1400 350 / 500 300 / 300 Lab / Micro Data Attestation: I reviewed the patient's lab results. 12/27/24 06:09 12/27/24 06:09 Labs: Laboratory Results - last 24 hr 12/25/24 05:31: Sodium 141, Potassium 4.1, Chloride 109 H, Carbon Dioxide 26.1, Anion Gap 5, BUN 21 H, Creatinine 0.50 L, Estim Creat Clear Calc 43.99 L, Est GFR (MDRD) Non-Af 93, BUN/Creatinine Ratio 41.0 H, Glucose 71, Calcium 8.4, Phosphorus 3.2, Total Bilirubin 0.61, AST 28, ALT 16, Alkaline Phosphatase 127 H, Total Protein 4.9 L, Albumin 2.6 L, Globulin 2.3, Albumin/Globulin Ratio 1.1 12/26/24 05:49: Sodium 142, Potassium 3.7, Chloride 109 H, Carbon Dioxide 27.8, Anion Gap 5, BUN 23 H, Creatinine 0.44 L, Estim Creat Clear Calc 44.83 L, Est GFR (MDRD) Non-Af 96, BUN/Creatinine Ratio 51.7 H, Glucose 78, Calcium 8.5, Phosphorus 3.0 12/27/24 06:09: WBC 7.9, RBC 3.73 L, Hgb 12.1, Hct 37.9, MCV 101.6 H, MCH 32.4 H, MCHC 31.9 L, RDW Std Deviation 51.7 H, RDW Coeff of Mildred 13.9, Plt Count 152, MPV 10.4, Sodium 142, Potassium 4.1, Chloride 109 H, Carbon Dioxide 28.4, Anion Gap 4 L, BUN 22 H, Creatinine 0.39 L, Estim Creat Clear Calc 44.90 L, Est GFR (MDRD) Non- Af 99, BUN/Creatinine Ratio 57.5 H, Glucose 73, Calcium 8.7 Micro: Microbiology 12/24/24 22:25 Urine, Clean Catch Urine Culture - Final Escherichia coli Proteus mirabilis Radiography Diagnostic Testing: L/S spine CT from 12/24/2024: IMPRESSION: 1. Compression abnormalities of the L2 and L3 vertebral bodies may be acute. Marked osteoporosis is seen and there are suspected osteolytic areas throughout the lower thoracic and lumbar spine raising concern for metastatic disease. Consider MRI for further evaluation. 2. Degenerative disc disease. 3. Diffuse annular bulging at L3-4 and L4-5. 4. Other nonacute findings detailed above MRI L/S spine from 12/24/2024: IMPRESSION: 1. Redemonstrated L2 burst fracture with mild retropulsion resulting in mild focal spinal canal stenosis. Tiny posterior epidural hematoma suspected. 2. Heterogeneous marrow signal with diffuse marrow replacement within the L2 vertebral body, perhaps slightly greater than would be expected to represent edema related to fracture. Although incompletely evaluated in the absence of IV contrast, this suggest possible pathologic fracture with underlying infiltrative process/lesion. Correlate with medical history and recommend outpatient follow-up MRI lumbar spine with and without IV contrast for complete evaluation. Some delay to allow at least partial resolution of presumed posttraumatic edema would be helpful in this regard. Fewother areas of marrow signal abnormality are identified, favored degenerative and/or related to nondisplaced fracture, most notably at the L5 superior endplate. 3. Minimally enlarged LEFT periaortic node, nonspecific and potentially reactivein the absence of known malignancy. Correlate with medical history and recommend attention on above follow-up. 4. Multilevel spondylosis without high-grade spinal canal or foraminal stenosis identified. 5. Additional description as above. Due for repeat xrays today Physical Exam Const alert, oriented x3, no apparent distress and well nourished General Appearance: cooperative HEENT normocephalic Resp normal respiratory effort and no use of accessory muscles Skin no rashes or lesions noted and no wounds Psych mental status grossly normal and affect normal Spine General: patient alert, patient oriented x3, moves all extremities and normal light touch, pain and propioception Cognition: normal cognition Speech: speech normal SPINE TESTING CERVICAL THORACIC LUMBAR Musculoskeletal Strength 0=absent - 5=normal Details: Skin is pink, warm, dry and intact. No ecchymosis or swelling noted. + pain with ROM and palpation of generalized mid to low lumbar region over vertebrae and bilat paraspinals with mild tightening noted. minimal sx aggravation with palpation of SI joints while seated. Lower ext sensation and strength is intact and equal bilaterally. Calves are soft, supple and nontender. Negative Homans Full range of distal joints with no symptom aggravation Distal motor or sensory intact with brisk cap refill at +2 seconds and palpable DP pulses at 2+ Assessment & Plan Assessment/Plan (1) Intractable back pain: (2) Compression fracture of L3 vertebra: QUALIFIERS: Encounter type: sequela Qualified Code(s): S32.030S -Wedge compression fracture of third lumbar vertebra, sequela (3) Burst fracture of lumbar vertebra: QUALIFIERS: Encounter type: subsequent encounter Fracture type: closed Fracture healing: with delayed healing Qualified Code(s): S32.001G - Stable burst fracture of unspecified lumbar vertebra, subsequent encounter for fracture with delayed healing (4) Osteopenia determined by x-ray: PLAN: Plan Continue with current pain control strategies Continue PT OT as ordered Social work working with [place] planning per [facility], anticipatedischarge 12/30/[address] Malagon who will follow up regarding today's lumbar film x-ray findings and will follow up regarding risk benefits of kyphoplasty and/or any other interventions. This document has been transcribed using uma information technology dictation software. There may beincorrect words, spelling, and punctuation. Charges/Coding Visit Charges Inpatient E&M: 20460 Subs Hosp L3 12/27/24 1223 <Electronically signed by Amairani NIELSEN> Cosigner Signature (if applicable): CC: ~ Signed [facility] Work Phone: [phone]) 833-249505-09-2025 Progress note Author Sveta [facility] Note Date/Time December 27, 2024 12:18p m [facility] Medical Records Department [address] [place] [address] Progress Note - Hospitalist 12/27/24 0743 MR#: [id number] Acct: [id number] Name: LESLI ROSALES Rep #:[id number] : 1940 84 From: Sveta Macias DO PCP: SILVIA GUTHRIE Status:ADM IN Location: MS3 [id number] Reason for Visit Reason for Visit: Intractable back pain Subjective Subjective Patient states her pain is still problematic. States that they are talking about doing a kyphoplasty on Monday. Objective Data Objective Data Vital Signs: Vital Signs Temp Pulse Resp BP Pulse Ox O2 Del Method O2 Flow Rate 97.5 F L 55 L 16 126/69 H 100 Nasal Cannula 2 12/27/24 04:20 12/27/24 04:20 12/27/24 04:20 12/27/24 04:20 12/27/24 04:20 12/27/24 04:20 12/27/24 04:20 Oxygen Flow Rate (L/min) 2 Oxygen Delivery Method Nasal Cannula Weight: 65.2 kg Body Mass Index (BMI) 28.2 Intake & Output: Intake and Output for Last 24 Hours 12/25/24 12/26/24 12/27/24 23:59 23:59 23:59 Intake Total 1300 / 1500 350 / 500 300 / 300 Output Total 100 / 100 Balance 1200 / 1400 350 / 500 300 / 300 Lab / Micro Data 12/27/24 06:09 12/27/24 06:09 Labs: Laboratory Results - last 24 hr 12/25/24 05:31: Sodium 141, Potassium 4.1, Chloride 109 H, Carbon Dioxide 26.1, Anion Gap 5, BUN 21 H, Creatinine 0.50 L, Estim Creat Clear Calc 43.99 L, Est GFR (MDRD) Non-Af 93, BUN/Creatinine Ratio 41.0 H, Glucose 71, Calcium 8.4, Phosphorus 3.2, Total Bilirubin 0.61, AST 28, ALT 16, Alkaline Phosphatase 127 H, Total Protein 4.9 L, Albumin 2.6 L, Globulin 2.3, Albumin/Globulin Ratio 1.1 12/26/24 05:49: Sodium 142, Potassium 3.7, Chloride 109 H, Carbon Dioxide 27.8, Anion Gap 5, BUN 23 H, Creatinine 0.44 L, Estim Creat Clear Calc 44.83 L, Est GFR (MDRD) Non-Af 96, BUN/Creatinine Ratio 51.7 H, Glucose 78, Calcium 8.5, Phosphorus 3.0 12/27/24 06:09: WBC 7.9, RBC 3.73 L, Hgb 12.1, Hct 37.9, MCV 101.6 H, MCH 32.4 H, MCHC 31.9 L, RDW Std Deviation 51.7 H, RDW Coeff of Mildred 13.9, Plt Count 152, MPV 10.4, Sodium 142, Potassium 4.1, Chloride 109 H, Carbon Dioxide 28.4, Anion Gap 4 L, BUN 22 H, Creatinine 0.39 L, Estim Creat Clear Calc 44.90 L, Est GFR (MDRD) Non- Af 99, BUN/Creatinine Ratio 57.5 H, Glucose 73, Calcium 8.7 Micro: Microbiology 12/24/24 22:25 Urine, Clean Catch Urine 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 Physical Exam Const alert, oriented x3, no apparent distress, average body habitus and well nourished Constitutional Narrative: Elderly, white female, sitting up in a chair at the bedside, appears comfortable, nontoxic General Appearance: cooperative HEENT normocephalic, head/scalp atraumatic and moist oral mucous membranes Resp normal respiratory effort, no retractions, no use of accessory muscles and clearto auscultation bilaterally Auscultation: Negative for rales, rhonchi or wheezes Cardio regular rate, regular rhythm, S1 normal heart sound, S2 normal heart sound, no murmurs, no rub, no gallops and no clicks GI normal to inspection, nondistended, normoactive bowel sounds, soft to palpation and non-tender Extremity no clubbing, cyanosis or edema Extremity Narrative: Pedal pulses are 2+ Neuro oriented x3, moves all extremities and no focal motor deficits Neuro Narrative: Increased pain with movement which limits strength but no significant focal deficits noted Speech: speech normal Psych affect normal Psych Narrative: Eye contact is good and patient interacts appropriately Assessment & Plan Assessment/Plan (1) Intractable back pain: (2) Abnormal finding on urinalysis: (3) Compression fracture of L2: (4) Compression fracture of L3 vertebra: QUALIFIERS: Encounter type: sequela Qualified Code(s): S32.030S -Wedge compression fracture of third lumbar vertebra, sequela PLAN: Plan Intractable low back pain secondary to compression fracture at L2 and L3 due to osteoporosis - CT is suspicious for osteolytic lesions in the thoracic and lumbar spine - Interestingly alk phos is not really that elevated which would be more consistent with metastatic disease - MRI was performed and shows burst fracture with mild retropulsion resulting inmild focal spinal canal stenosis with tiny posterior epidural hematoma suspected, heterogeneous marrow signal with diffuse marrow replacement in the [id number] body, large left periaortic lymph node and multilevel spondylosis without high-grade spinal canal or foraminal stenosis - Patient on Xarelto chronically for A-fib will hold in case procedures are required from orthopedic surgery and/or pain management - Continue lidocaine patch - Continue scheduled Tylenol - Continue muscle relaxants as ordered as needed - Continue as needed oral oxycodone - Continue morphine IV for breakthrough pain - Consult pain management is still pending - Continue calcium supplementation - Continue home vitamin D supplementation as level is greater than 30 - Orthopedic surgery consult is still pending - PT/OT consultation but hold off until after evaluated by orthopedic surgery E. coli and Proteus UTI - Urine culture was sent for dysuria and low culture CFU's are low patient was symptomatic and potentially having procedure so we will complete a course for uncomplicated UTI -Continue ceftriaxone for total of 5 days IV with today being day 3 of 5 - I do suspect any intervention will require eradication or at least 48 hours oftreatment of her urine if orthopedic surgery or pain management would like to proceed with anything - Await culture results Generalized weakness and debility secondary to the above - Will likely need placement at discharge -Case management is sending referral to the [facility] - case management manager consulted PAF - Rivaroxaban on hold due to the above - Continue home atenolol -Remains in sinus rhythm GERD - Continue home famotidine Essential hypertension - Continue home Lasix - Continue atenolol - As needed hydralazine for systolic pressure greater than 160 History of psoriatic arthritis - Restart biologic at discharge Depression - Patient is not on any medications - monitor clinically COPD - Continue home inhalers Tobacco abuse - Remote and patient has quit DVT prophylaxis - Home Xarelto on hold -Continue enoxaparin 40 daily CODE STATUS -Full code Charges/Coding Visit Charges Inpatient E&M: 82226 Subs Hosp L2 12/27/24 1212 <Electronically signed by Sveta Macias DO> Cosigner Signature (if applicable): CC: ~ [facility]igned [facility] Work Phone: [phone]) 211-466205-09-2025 Progress note [facility] Medical Records Department [address] [place] [address] Progress Note - Orthopedic 12/27/24 1103 MR#: [id number] Acct: [id number] Name: LESLI ROSALES Rep #:[id number] : 1940 84 From: Amairani Choudhary [employer]C PCP: SILVIA GUTHRIE Status:ADM IN Location: MS3 SL050-4 Subjective Subjective LESLI ROSALES, is a pleasant 84 F admitted for pain control of severe low back pain. She is sitting in a recliner eating breakfast at today's visit. Pt has had severe worsening of low back pain since August when she tried to lift her . She was bedridden for a few weeks after that and then was brought to the hospital for sepsis about a month ago. This was then treated butthen patient was not able to get back to mobility and continue to be bedridden. She was then brought to the hospital on 12/24/2024. Patient says that she has hadsevere low back pain that is better controlled since admission and radiates mainly down L leg, mild to R legand towards bilateral hips and into the thighs. She denies any weakness in the lower extremities. She denies any known previous cancers. Currently being treated for UTI this admission. Objective Data Objective Data Vital Signs: Vital Signs Temp Pulse Resp BP Pulse Ox O2 Del Method O2 Flow Rate 98.4 F 85 16 108/74 100 Nasal Cannula 2 12/27/24 09:49 12/27/24 09:49 12/27/24 09:49 12/27/24 09:49 12/27/24 09:49 12/27/24 09:49 12/27/24 09:49 Oxygen Flow Rate (L/min) 2 Oxygen Delivery Method Nasal Cannula Weight: 143 lb 11.862 oz Body Mass Index (BMI) 28.2 Intake & Output: Intake and Output for Last 24 Hours 12/25/24 12/26/24 12/27/24 23:59 23:59 23:59 Intake Total 1300 / 1500 350 / 500 300 / 300 Output Total 100 / 100 Balance 1200 / 1400 350 / 500 300 / 300 Lab / Micro Data Attestation: I reviewed the patient's lab results. 12/27/24 06:09 12/27/24 06:09 Labs: Laboratory Results - last 24 hr 12/25/24 05:31: Sodium 141, Potassium 4.1, Chloride 109 H, Carbon Dioxide 26.1, Anion Gap 5, BUN 21H, Creatinine 0.50 L, Estim Creat Clear Calc 43.99 L, Est GFR (MDRD) Non-Af 93, BUN/Creatinine Ratio 41.0 H, Glucose 71, Calcium 8.4, Phosphorus 3.2, Total Bilirubin 0.61, AST 28, ALT 16, Alkaline Phosphatase 127 H, Total Protein 4.9 L, Albumin 2.6 L, Globulin 2.3, Albumin/Globulin Ratio 1.1 12/26/24 05:49: Sodium 142, Potassium 3.7, Chloride 109 H, Carbon Dioxide 27.8, Anion Gap 5, BUN 23H, Creatinine 0.44 L, Estim Creat Clear Calc 44.83 L, Est GFR (MDRD) Non-Af 96, BUN/Creatinine Ratio 51.7 H, Glucose 78, Calcium 8.5, Phosphorus 3.0 12/27/24 06:09: WBC 7.9, RBC 3.73 L, Hgb 12.1, Hct 37.9, MCV 101.6 H, MCH 32.4 H, MCHC 31.9 L, RDW Std Deviation 51.7 H, RDW Coeff of Mildred 13.9, Plt Count 152, MPV 10.4, Sodium 142, Potassium 4.1, Chloride 109 H, Carbon Dioxide 28.4, Anion Gap 4 L, BUN 22 H, Creatinine 0.39 L, Estim Creat Clear Calc44.90 L, Est GFR (MDRD) Non-Af 99, BUN/Creatinine Ratio 57.5 H, Glucose 73, Calcium 8.7 Micro: Microbiology 12/24/24 22:25 Urine, Clean Catch Urine Culture - Final Escherichia coli Proteus mirabilis Radiography Diagnostic Testing: L/S spine CT from 12/24/2024: IMPRESSION: 1. Compression abnormalities of the L2 and L3 vertebral bodies may be acute. Marked osteoporosis isseen and there are suspected osteolytic areas throughout the lower thoracic and lumbar spine raising concern for metastatic disease. Consider MRI for further evaluation. 2. Degenerative disc disease. 3. Diffuse annular bulging at L3-4 and L4-5. 4. Other nonacute findings detailed above MRI L/S spine from 12/24/2024: IMPRESSION: 1. Redemonstrated L2 burst fracture with mild retropulsion resulting in mild focal spinal canal stenosis. Tiny posterior epidural hematoma suspected. 2. Heterogeneous marrow signal with diffuse marrow replacement within the L2 vertebral body, perhaps slightly greater than would be expected to represent edema related to fracture. Although incompletely evaluated in the absence of IV contrast, this suggest possible pathologic fracture with underlying infiltrative process/lesion. Correlate with medical history and recommend outpatient follow-up MRI lumbar spine with and without IV contrast for complete evaluation. Some delay to allow at least partial resolution of presumed posttraumatic edema would be helpful in this regard. Fewother areas of marrow signal abnormality are identified, favored degenerative and/or related to nondisplaced fracture, most notably at the L5 superior endplate. 3. Minimally enlarged LEFT periaortic node, nonspecific and potentially reactivein the absence of known malignancy. Correlate with medical history and recommend attention on above follow-up. 4. Multilevel spondylosis without high-grade spinal canal or foraminal stenosis identified. 5. Additional description as above. Due for repeat xrays today Physical Exam Const alert, oriented x3, no apparent distress and well nourished General Appearance: cooperative HEENT normocephalic Resp normal respiratory effort and no use of accessory muscles Skin no rashes or lesions noted and no wounds Psych mental status grossly normal and affect normal Spine General: patient alert, patient oriented x3, moves all extremities and normal light touch, pain andpropioception Cognition: normal cognition Speech: speech normal SPINE TESTING CERVICAL THORACIC LUMBAR Musculoskeletal Strength 0=absent - 5=normal Details: Skin is pink, warm, dry and intact. No ecchymosis or swelling noted. + pain with ROM and palpation of generalized mid to low lumbar region over vertebrae and bilat paraspinals with mild tightening noted. minimal sx aggravation with palpation of SI joints while seated. Lower ext sensation and strength is intact and equal bilaterally. Calves are soft, supple and nontender. Negative Homans Full range of distal joints with no symptom aggravation Distal motor or sensory intact with brisk cap refill at +2 seconds and palpable DP pulses at 2+ Assessment & Plan Assessment/Plan (1) Intractable back pain: (2) Compression fracture of L3 vertebra: QUALIFIERS: Encounter type: sequela Qualified Code(s): S32.030S -Wedge compression fracture of third lumbar vertebra, sequela (3) Burst fracture of lumbar vertebra: QUALIFIERS: Encounter type: subsequent encounter Fracture type: closed Fracture healing: with delayed healing Qualified Code(s): S32.001G - Stable burst fracture of unspecified lumbar vertebra, subsequent encounter for fracture with delayed healing (4) Osteopenia determined by x-ray: PLAN: Plan Continue with current pain control strategies Continue PT OT as ordered Social work working with [place] planning per [facility] local [facility], anticipatedischarge 12/30/[address] Malagon who will follow up regarding today's lumbar film x-ray findings and will follow up regarding risk benefits of kyphoplasty and/or any other interventions. This document has been transcribed using uma information technology dictation software. There may beincorrect words, spelling, and punctuation. Charges/Coding Visit Charges Inpatient E&M: 22033 Subs Hosp L3 12/27/24 1223 Cosigner Signature (if applicable): CC: ~ [facility]igned [facility]25 Progress note [facility] Medical Records Department [address] [place] [address] Progress Note - Hospitalist 12/27/24 0743 MR#: [id number] Acct: [id number] Name: LESLI ROSALES Jose Alberto Rep #:[id number] : 1940 84 From: Sveta Macias DO PCP: SILVIA GUTHRIE Status:[facility] Reason for Visit Reason for Visit: Intractable back pain Subjective Subjective Patient states her pain is still problematic. States that they are talking about doing a kyphoplasty on Monday. Objective Data Objective Data Vital Signs: Vital Signs Temp Pulse Resp BP Pulse Ox O2 Del Method O2 Flow Rate 97.5 F L 55 L 16 126/69 H 100 Nasal Cannula 2 12/27/24 04:20 12/27/24 04:20 12/27/24 04:20 12/27/24 04:20 12/27/24 04:20 12/27/24 04:20 12/27/24 04:20 Oxygen Flow Rate (L/min) 2 Oxygen Delivery Method Nasal Cannula Weight: 65.2 kg Body Mass Index (BMI) 28.2 Intake & Output: Intake and Output for Last 24 Hours 05/07/25 05/08/25 05/09/25 23:59 23:59 23:59 Intake Total 1300 / 1500 350 / 500 300 / 300 Output Total 100 / 100 Balance 1200 / 1400 350 / 500 300 / 300 Lab / Micro Data 12/27/24 06:09 12/27/24 06:09 Labs: Laboratory Results - last 24 hr 12/25/24 05:31: Sodium 141, Potassium 4.1, Chloride 109 H, Carbon Dioxide 26.1, Anion Gap 5, BUN 21H, Creatinine 0.50 L, Estim Creat Clear Calc 43.99 L, Est GFR (MDRD) Non-Af 93, BUN/Creatinine Ratio 41.0 H, Glucose 71, Calcium 8.4, Phosphorus 3.2, Total Bilirubin 0.61, AST 28, ALT 16, Alkaline Phosphatase 127 H, Total Protein 4.9 L, Albumin 2.6 L, Globulin 2.3, Albumin/Globulin Ratio 1.1 12/26/24 05:49: Sodium 142, Potassium 3.7, Chloride 109 H, Carbon Dioxide 27.8, Anion Gap 5, BUN 23H, Creatinine 0.44 L, Estim Creat Clear Calc 44.83 L, Est GFR (MDRD) Non-Af 96, BUN/Creatinine Ratio 51.7 H, Glucose 78, Calcium 8.5, Phosphorus 3.0 12/27/24 06:09: WBC 7.9, RBC 3.73 L, Hgb 12.1, Hct 37.9, MCV 101.6 H, MCH 32.4 H, MCHC 31.9 L, RDW Std Deviation 51.7 H, RDW Coeff of Mildred 13.9, Plt Count 152, MPV 10.4, Sodium 142, Potassium 4.1, Chloride 109 H, Carbon Dioxide 28.4, Anion Gap 4 L, BUN 22 H, Creatinine 0.39 L, Estim Creat Clear Calc44.90 L, Est GFR (MDRD) Non-Af 99, BUN/Creatinine Ratio 57.5 H, Glucose 73, Calcium 8.7 Micro: Microbiology 12/24/24 22:25 Urine, Clean Catch Urine 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 Physical Exam Const alert, oriented x3, no apparent distress, average body habitus and well nourished Constitutional Narrative: Elderly, white female, sitting up in a chair at the bedside, appears comfortable, nontoxic General Appearance: cooperative HEENT normocephalic, head/scalp atraumatic and moist oral mucous membranes Resp normal respiratory effort, no retractions, no use of accessory muscles and clearto auscultation bilaterally Auscultation: Negative for rales, rhonchi or wheezes Cardio regular rate, regular rhythm, S1 normal heart sound, S2 normal heart sound, no murmurs, no rub, no gallops and no clicks GI normal to inspection, nondistended, normoactive bowel sounds, soft to palpation and non-tender Extremity no clubbing, cyanosis or edema Extremity Narrative: Pedal pulses are 2+ Neuro oriented x3, moves all extremities and no focal motor deficits Neuro Narrative: Increased pain with movement which limits strength but no significant focal deficits noted Speech: speech normal Psych affect normal Psych Narrative: Eye contact is good and patient interacts appropriately Assessment & Plan Assessment/Plan (1) Intractable back pain: (2) Abnormal finding on urinalysis: (3) Compression fracture of L2: (4) Compression fracture of L3 vertebra: QUALIFIERS: Encounter type: sequela Qualified Code(s): S32.030S -Wedge compression fracture of third lumbar vertebra, sequela PLAN: Plan Intractable low back pain secondary to compression fracture at L2 and L3 due to osteoporosis - CT is suspicious for osteolytic lesions in the thoracic and lumbar spine - Interestingly alk phos is not really that elevated which would be more consistent with metastaticdisease - MRI was performed and shows burst fracture with mild retropulsion resulting inmild focal spinal canal stenosis with tiny posterior epidural hematoma suspected, heterogeneous marrow signal with diffuse marrow replacement in the [id number] body, large left periaortic lymph node and multilevel spondylosis without high-grade spinal canal or foraminal stenosis - Patient on Xarelto chronically for A-fib will hold in case procedures are required from orthopedic surgery and/or pain management - Continue lidocaine patch - Continue scheduled Tylenol - Continue muscle relaxants as ordered as needed - Continue as needed oral oxycodone - Continue morphine IV for breakthrough pain - Consult pain management is still pending - Continue calcium supplementation - Continue home vitamin D supplementation as level is greater than 30 - Orthopedic surgery consult is still pending - PT/OT consultation but hold off until after evaluated by orthopedic surgery E. coli and Proteus UTI - Urine culture was sent for dysuria and low culture CFU's are low patient was symptomatic and potentially having procedure so we will complete a course for uncomplicated UTI -Continue ceftriaxone for total of 5 days IV with today being day 3 of 5 - I do suspect any intervention will require eradication or at least 48 hours oftreatment of her urine if orthopedic surgery or pain management would like to proceed with anything - Await culture results Generalized weakness and debility secondary to the above - Will likely need placement at discharge -Case management is sending referral to the [facility] - case management manager consulted PAF - Rivaroxaban on hold due to the above - Continue home atenolol -Remains in sinus rhythm GERD - Continue home famotidine Essential hypertension - Continue home Lasix - Continue atenolol - As needed hydralazine for systolic pressure greater than 160 History of psoriatic arthritis - Restart biologic at discharge Depression - Patient is not on any medications - monitor clinically COPD - Continue home inhalers Tobacco abuse - Remote and patient has quit DVT prophylaxis - Home Xarelto on hold -Continue enoxaparin 40 daily CODE STATUS -Full code Charges/Coding Visit Charges Inpatient E&M: 25239 Subs Hosp L2 12/27/24 1218 Cosigner Signature (if applicable): CC: ~ Signed [facility]05[facility]25 Radiology Diagnostic study note [facility] Imaging Services [address] [place], [place] [id number] Lumbar Spine 2 or 3 Views MR#: [id number] Acct: [id number] Name: LESLI ROSALES Rep #: [id number] : 1940 F 84 From: Susan Whitney MD PCP: SILVIA GUTHRIE Status: ADM IN Study:Lumbar Spine 2 or 3 Views Date of Exam: 12/27/24 Exam# [id number] Ordering Dr: Kelsey Malagon MD EXAM: XR Lumbosacral Spine, 2 or 3 Views CLINICAL INDICATION: L2 BURST FX TECHNIQUE: Frontal and lateral views of the lumbar spine and sacrum. COMPARISON: No relevant prior studies available. FINDINGS: VERTEBRAE: Moderate compression deformity of L2 vertebral body. Grade 1 anterior spondylolisthesis of L5 on S1 by 1.4 cm. Degenerative facet arthropathy throughout the lumbar spine, most prominent in the lower lumbar spine. SACRUM/COCCYX: Unremarkable as visualized. No acute fracture. DISC SPACES: Degenerative disc disease throughout the lumbar spine. SOFT TISSUES: Unremarkable. VASCULATURE: Scattered calcified atherosclerotic disease of aorta. RAD/Lumbar Spine 2 or 3 Views IMPRESSION: 1. Moderate compression deformity of L2 vertebral body. 2. Grade 1 anterior spondylolisthesis of L5 on S1 by 1.4 cm. 3. Degenerative changes lumbar spine as described. Reading Location: [facility] CC: Dr. Mike Malagon MD; SILVIA GUTHRIE ~ Head Tennis Professional: Signed [facility]05-08-2025 Consult note Author Mike Malagon [facility] Note Date/Time December 26, 2024 4:45pm [facility] Medical Records Department [address] [place] [address] Consultation - Orthopedics 12/26/24 1629 MR#: [id number] Acct: [id number] Name: LESLI ROSALES Rep #:[id number] : 1940 84 From: Mike Malagon MD PCP: SILVIA GUTHRIE Status:ADM IN Location: [facility]3 [id number] HPI Consult Data Date of Consult: 12/26/24 HPI Narrative HPI Narrative: LESLI ROSALES, is a 84 F who presents with severe low back pain and admission for pain control. I was contacted by the ED on 12/24/2024 and the patient was admitted. Patient underwent MRI on 12/25/2024 and I was consulted after the MRI. I saw the patient today in 306. Patient is lying down in bed. She said that she was able to workwith PT and sit up on a chair. She says that she has had severe worsening of low back pain since August when she tried to lift her . She was bedridden for a few weeks after that and then was brought to the hospital for sepsis about a month ago. This was then treated but then patient was not able to get back to mobility and continue to be bedridden. She was then brought to the hospital on 12/24/2024. Patient says that she has had severe low back pain and points towards the lower lumbar region. She denies any new trauma other than the popping sound that she heard when she tried to lift her in August. She has pain that goes down towards bilateral hips and into the thighs. She denies any weakness in the lower extremities. She denies any knownprevious cancers. She denies any recent fevers. [facility] Medical History Anxiety Depression Chronic pain GERD (gastroesophageal reflux disease) On home oxygen therapy Atrial fibrillation Congestive heart failure (CHF) Hypertension Shingles Psoriatic arthritis COPD (chronic obstructive pulmonary disease) A-fib Home Medications ?Medication ?Instructions ?Recorded ?Last Taken ?Type atenolol 25 mg tablet 25 mg PO DAILY 06/26/2102/12 History famotidine 20 mg tablet 20 mg PO DAILY 06/26/2102/12 History folic acid 1 mg tablet 1 mg PO DAILY supplement 02/0812/24/24 History rivaroxaban 20 mg tablet (Xarelto) 20 mg PO DAILY 02/0812/24/24 History cholecalciferol (vitamin D3) 50 50 mcg PO DAILY 12/24/24 History mcg (2,000 unit) capsule furosemide 20 mg tablet 20 mg PO DAILY 11/17/24 Unkn own History albuterol sulfate 90 mcg/actuation 2 puff inhalation Q 6H PRN dyspnea 11/18/24 Unknown History aerosol inhaler tiotropium bromide 18 mcg capsule 1 cap inhalation RUTH LY PRN 11/18/24 12/24/24 History with inhalation device (Spiriva shortness of breath with HandiHaler) lidocaine 5 % topical patch 2 patch topical DAILY #0 e a 11/24/24 Unknown Rx oxycodone-acetaminophen 5 mg-325 1 tab PO TID PRN pain 12/24/24 Unknown History mg tablet risankizumab-rzaa 150 mg/mL 150 mg subcut Q90D 5 12/18/24 History subcutaneous pen injector (Skyrizi) Allergy/AdvReac Type Severity Reaction Status Date / Time No Known Allergies Allergy Verified 12/24/24 15:23 Surgical History History of partial hysterectomy History of bladder suspension procedure History of appendectomy History of cholecystectomy H/O hernia repair Social History household members: none Smoking Status: Former smoker substance use type: does not use Vital Signs Vital Signs Vital Signs: 12/25/24 20:40 12/25/24 22:00 12/25/24 22:56 Temperature Temperature Source Pulse Rate 79 Pulse Strength Normal (2+) Respiratory Rate Respiratory Effort Respiratory Depth Respiratory Pattern Blood Pressure Blood Pressure Mean Blood Pressure Source Blood Pressure Position Blood Pressure Location Pulse Ox 98 Oxygen Delivery Method Nasal Cannula Oxygen Flow Rate (L/min) 2 12/25/24 23:07 12/25/24 23:21 12/26/24 04:09 Temperature 98.2 F 97.7 F L Temperature Source Oral Oral Pulse Rate 80 65 Pulse Strength Respiratory Rate 16 16 Respiratory Effort Normal Non-Labored Respiratory Depth Normal Respiratory Pattern Normal Blood Pressure 123/69 H 118/60 Blood Pressure Mean 87 79 Blood Pressure Source Monitor Monitor Blood Pressure Position Semi-Fowlers Left Lateral Blood Pressure Location Left Arm Right Arm Pulse Ox 98 99 Oxygen Delivery Method Nasal Cannula Nasal Cannula Nasal Cannula Oxygen Flow Rate (L/min) 2 2 2 12/26/24 05:30 12/26/24 06:54 12/26/24 09:59 Temperature 97.8 F Temperature Source Oral Pulse Rate 56 L 80 Pulse Strength Respiratory Rate 16 Respiratory Effort Respiratory Depth Respiratory Pattern Blood Pressure 126/60 H Blood Pressure Mean 82 Blood Pressure Source Monitor Blood Pressure Position Semi-Fowlers Blood Pressure Location Left Arm Pulse Ox 93 100 Oxygen Delivery Method Nasal Cannula Nasal Cannula Oxygen Flow Rate (L/min) 2 2 12/26/24 10:03 12/26/24 11:13 12/26/24 11:13 Temperature Temperature Source Pulse Rate Pulse Strength Respiratory Rate 16 Respiratory Effort Respiratory Depth Respiratory Pattern Blood Pressure Blood Pressure Mean Blood Pressure Source Blood Pressure Position Blood Pressure Location Pulse Ox 93 92 Oxygen Delivery Method Nasal Cannula Oxygen Flow Rate (L/min) 2 12/26/24 13:55 Temperature 97.9 F Temperature Source Oral Pulse Rate 75 Pulse Strength Respiratory Rate 16 Respiratory Effort Respiratory Depth Respiratory Pattern Blood Pressure 153/92 H Blood Pressure Mean 112 Blood Pressure Source Monitor Blood Pressure Position Semi-Fowlers Blood Pressure Location Left Arm Pulse Ox 94 Oxygen Delivery Method Room Air Oxygen Flow Rate (L/min) Weight Weight: 143 lb 4.807 oz Body Mass Index (BMI) 28.1 Physical Exam Narrative Examination of the back shows midline and paraspinal tenderness throughout the lumbar spine. Difficult to assess for spinous process tenderness. Patient's back is sweaty, but vitals show normal temperature. Neurologic bilateral lower extremity shows 5 x 5 power normal shows normal sensations in all dermatomes. Lab / Micro Data 12/26/24 05:49 12/26/24 05:49 Labs: Laboratory Results - last 24 hr 12/26/24 05:49: WBC 8.2, RBC 3.60 L, Hgb 11.8 L, Hct 36.3 L, MCV 100.8 H, MCH 32.8 H, MCHC 32.5, RDW Std Deviation 52.7 H, RDW Coeff of Mildred 14.2, Plt Count 162, MPV 10.7, Sodium 142, Potassium 3.7, Chloride 109 H, Carbon Dioxide 27.8, Anion Gap 5, BUN 23 H, Creatinine 0.44 L, Estim Creat Clear Calc 44.83 L, Est GFR (MDRD) Non-Af 96, BUN/Creatinine Ratio 51.7 H, Glucose 78, Calcium 8.5, Phosphorus 3.0 Micro: Microbiology 12/24/24 22:25 Urine, Clean Catch Urine 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 Assessment & Plan Assessment/Plan (1) Compression fracture of L3 vertebra: QUALIFIERS: Encounter type: sequela Qualified Code(s): S32.030S -Wedge compression fracture of third lumbar vertebra, sequela (2) Burst fracture of lumbar vertebra: QUALIFIERS: Encounter type: initial encounter Fracture type: closed Qualified Code(s): S32.001A - Stable burst fracture of unspecified lumbarvertebra, initial encounter for closed fracture (3) Osteopenia determined by x-ray: PLAN: Plan I reviewed CT of lumbar spine done on 12/24/2024, MRI done on on 12/25/2024, CT chest abdomen pelvis done on 11/17/2024. The CT from October did show an L3 compression fracture which is unchanged in the current CT suggesting that the L3 fracture is old. The L2 vertebra shows a burst fracture confirmed on MRI to be acute, as this was not present in October CT. There is significant intravertebral hematoma as well as a small epidural hematoma suggesting this is acute versus subacute. Kummel lesion cannot be ruledout due to the well-defined fluid signal within the vertebra, also considering that the trauma was in August. Infectious or neoplastic pathology can also notbe ruled out as the MRI report seems inconclusive regarding this. CT chest abdomen pelvis from October did not report any obvious known tumors in those areasto be source of metastasis. I recommend obtaining upright x-rays either in sitting or standing position if patient is able to of the lumbar spine. I would recommend ruling out sepsis or other source of infection, as patient hashad sweating although temperatures have been normal. It appears she has a current UTI. Would prefer ruling out and treating any infection prior to any spinal procedure. Patient would need to be off of any blood thinners prior to any cement augmentation procedure. I discussed treatment options for her. As neoplastic lesion cannot be completely ruled out, her options would be to do a delayed interval MRI versus abiopsy, and likely cement augmentation at the same setting. Explained to her that cement augmentation may not be completely risk-free for her. She has a burst fracture component with epidural hematoma, she has been on blood thinners,cement extravasation and epidural hematoma would be serious risks for this procedure. Patient says that she has been off of Xarelto since admission and I would confirm that prior to recommending kyphoplasty. Patient would also like to think over and talk to her family prior to consenting for kyphoplasty. Patient's infection or possible sepsis should be well-controlled prior to this procedure. I will review her upright x- rays once done and we discussed the possibility of kyphoplasty with her. All questions answered. Charges/Coding Visit Charges Inpatient E&M: 55639 Init Hosp L3 12/26/24 1645 <Electronically signed by Mike Malagon MD> Cosigner Signature (if applicable): CC: Dr. Sveta Macias, DO; SILVIA GUTHRIE~ Signed [facility] Work Phone: [phone]) 672-318205-08-2025 Consult note [facility] Medical Records Department [address] [place] [address] Consultation - Orthopedics 12/26/24 1629 MR#: [id number] Acct: [id number] Name: LESLI ROSALES Rep #:[id number] : 1940 84 From: Mike Malagon MD PCP: SILVIA GUTHRIE Status:ADM IN Location: [facility] DA284-2 HPI Consult Data Date of Consult: 12/26/24 HPI Narrative HPI Narrative: LESLI ROSALES, is a 84 F who presents with severe low back pain and admission for pain control. I was contacted by the ED on 12/24/2024 and the patient was admitted. Patient underwent MRI on 12/25/2024 and I was consulted after the MRI. I saw the patient today in 306. Patient is lying down in bed. She said that she was able to workwith PT and sit up on a chair. She says that she has had severe worsening of low back pain since August when she tried to lift her . She was bedridden for a few weeks after that and then was brought to the hospital for sepsis about a month ago. This was thentreated but then patient was not able to get back to mobility and continue to be bedridden. She wasthen brought to the hospital on 12/24/2024. Patient says that she has had severe low back pain and poi nts towards the lower lumbar region. She denies any new trauma other than the popping sound that she heard when she tried to lift her in August. She has pain that goes down towards bilateralhips and into the thighs. She denies any weakness in the lower extremities. She denies any knownprevious cancers. She denies any recent fevers. [facility] Medical History Anxiety Depression Chronic pain GERD (gastroesophageal reflux disease) On home oxygen therapy Atrial fibrillation Congestive heart failure (CHF) Hypertension Shingles Psoriatic arthritis COPD (chronic obstructive pulmonary disease) A-fib Home Medications ?Medication ?Instructions ?Recorded ?Last Taken ?Type atenolol 25 mg tablet 25 mg PO DAILY 06/26/2102/12 History famotidine 20 mg tablet 20 mg PO DAILY 06/26/2102/12 History folic acid 1 mg tablet 1 mg PO DAILY supplement 02/0812/24/24 History rivaroxaban 20 mg tablet (Xarelto) 20 mg PO DAILY 02/0812/24/24 History cholecalciferol (vitamin D3) 50 50 mcg PO DAILY 12/24/24 History mcg (2,000 unit) capsule furosemide 20 mg tablet 20 mg PO DAILY 11/17/24 Unkn own History albuterol sulfate 90 mcg/actuation 2 puff inhalation Q 6H PRN dyspnea 11/18/24 Unknown History aerosol inhaler tiotropium bromide 18 mcg capsule 1 cap inhalation RUTH LY PRN 11/18/24 12/24/24 History with inhalation device (Spiriva shortness of breath with HandiHaler) lidocaine 5 % topical patch 2 patch topical DAILY #0 e a 11/24/24 Unknown Rx oxycodone-acetaminophen 5 mg-325 1 tab PO TID PRN pain 12/24/24 Unknown History mg tablet risankizumab-rzaa 150 mg/mL 150 mg subcut Q90D 5 12/18/24 History subcutaneous pen injector (Skyrizi) Allergy/AdvReac Type Severity Reaction Status Date / Time No Known Allergies Allergy Verified 12/24/24 15:23 Surgical History History of partial hysterectomy History of bladder suspension procedure History of appendectomy History of cholecystectomy H/O hernia repair Social History household members: none Smoking Status: Former smoker substance use type: does not use Vital Signs Vital Signs Vital Signs: 12/25/24 20:40 12/25/24 22:00 12/25/24 22:56 Temperature Temperature Source Pulse Rate 79 Pulse Strength Normal (2+) Respiratory Rate Respiratory Effort Respiratory Depth Respiratory Pattern Blood Pressure Blood Pressure Mean Blood Pressure Source Blood Pressure Position Blood Pressure Location Pulse Ox 98 Oxygen Delivery Method Nasal Cannula Oxygen Flow Rate (L/min) 2 12/25/24 23:07 12/25/24 23:21 12/26/24 04:09 Temperature 98.2 F 97.7 F L Temperature Source Oral Oral Pulse Rate 80 65 Pulse Strength Respiratory Rate 16 16 Respiratory Effort Normal Non-Labored Respiratory Depth Normal Respiratory Pattern Normal Blood Pressure 123/69 H 118/60 Blood Pressure Mean 87 79 Blood Pressure Source Monitor Monitor Blood Pressure Position Semi-Fowlers Left Lateral Blood Pressure Location Left Arm Right Arm Pulse Ox 98 99 Oxygen Delivery Method Nasal Cannula Nasal Cannula Nasal Cannula Oxygen Flow Rate (L/min) 2 2 2 12/26/24 05:30 12/26/24 06:54 12/26/24 09:59 Temperature 97.8 F Temperature Source Oral Pulse Rate 56 L 80 Pulse Strength Respiratory Rate 16 Respiratory Effort Respiratory Depth Respiratory Pattern Blood Pressure 126/60 H Blood Pressure Mean 82 Blood Pressure Source Monitor Blood Pressure Position Semi-Fowlers Blood Pressure Location Left Arm Pulse Ox 93 100 Oxygen Delivery Method Nasal Cannula Nasal Cannula Oxygen Flow Rate (L/min) 2 2 12/26/24 10:03 12/26/24 11:13 12/26/24 11:13 Temperature Temperature Source Pulse Rate Pulse Strength Respiratory Rate 16 Respiratory Effort Respiratory Depth Respiratory Pattern Blood Pressure Blood Pressure Mean Blood Pressure Source Blood Pressure Position Blood Pressure Location Pulse Ox 93 92 Oxygen Delivery Method Nasal Cannula Oxygen Flow Rate (L/min) 2 12/26/24 13:55 Temperature 97.9 F Temperature Source Oral Pulse Rate 75 Pulse Strength Respiratory Rate 16 Respiratory Effort Respiratory Depth Respiratory Pattern Blood Pressure 153/92 H Blood Pressure Mean 112 Blood Pressure Source Monitor Blood Pressure Position Semi-Fowlers Blood Pressure Location Left Arm Pulse Ox 94 Oxygen Delivery Method Room Air Oxygen Flow Rate (L/min) Weight Weight: 143 lb 4.807 oz Body Mass Index (BMI) 28.1 Physical Exam Narrative Examination of the back shows midline and paraspinal tenderness throughout the lumbar spine. Difficult to assess for spinous process tenderness. Patient's back is sweaty, but vitals show normal temperature. Neurologic bilateral lower extremity shows 5 x 5 power normal shows normal sensations in alldermatomes. Lab / Micro Data 12/26/24 05:49 12/26/24 05:49 Labs: Laboratory Results - last 24 hr 12/26/24 05:49: WBC 8.2, RBC 3.60 L, Hgb 11.8 L, Hct 36.3 L, MCV 100.8 H, MCH 32.8 H, MCHC 32.5, RDW Std Deviation 52.7 H, RDW Coeff of Mildred 14.2, Plt Count 162, MPV 10.7, Sodium 142, Potassium 3.7, Chloride 109 H, Carbon Dioxide 27.8, Anion Gap 5, BUN 23 H, Creatinine 0.44 L, Estim Creat Clear Calc44.83 L, Est GFR (MDRD) Non-Af 96, BUN/Creatinine Ratio 51.7 H, Glucose 78, Calcium 8.5, Phosphorus3.0 Micro: Microbiology 12/24/24 22:25 Urine, Clean Catch Urine 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 Assessment & Plan Assessment/Plan (1) Compression fracture of L3 vertebra: QUALIFIERS: Encounter type: sequela Qualified Code(s): S32.030S -Wedge compression fracture of third lumbar vertebra, sequela (2) Burst fracture of lumbar vertebra: QUALIFIERS: Encounter type: initial encounter Fracture type: closed Qualified Code(s): S32.001A - Stable burst fracture of unspecified lumbarvertebra, initial encounter for closed fracture (3) Osteopenia determined by x-ray: PLAN: Plan I reviewed CT of lumbar spine done on 12/24/2024, MRI done on on 12/25/2024, CT chest abdomen pelvis done on 11/17/2024. The CT from October did show an L3 compression fracture which is unchanged in the current CT suggesting that the L3 fracture is old. The L2 vertebra shows a burst fracture confirmed on MRI to be acute,as this was not present in October CT. There is significant intravertebral hematoma as well as a small epidural hematoma suggesting this is acute versus subacute. Kummel lesion cannot be ruledout due to the well-defined fluid signal within the vertebra, also considering that the trauma was in August. Infectious or neoplastic pathology can also notbe ruled out as the MRI report seems inconclusive regarding this. CT chest abdomen pelvis from October did not report any obvious known tumors in those areasto be source of metastasis. I recommend obtaining upright x-rays either in sitting or standing position if patient is able to of the lumbar spine. I would recommend ruling out sepsis or other source of infection, as patient hashad sweating although temperatures have been normal. It appears she has a current UTI. Would prefer ruling out and treating any infection prior to any spinal procedure. Patient would need to be off of any blood thinners prior to any cement augmentation procedure. I discussed treatment options for her. As neoplastic lesion cannot be completely ruled out, her options would be to do a delayed interval MRI versus abiopsy, and likely cement augmentation at the same setting. Explained to her that cement augmentation may not be completely risk-free for her. She has a burst fracture component with epidural hematoma, she has been on blood thinners,cement extravasation and epidural hematoma would be serious risks for this procedure. Patient says that she has beenoff of Xarelto since admission and I would confirm that prior to recommending kyphoplasty. Patient would also like to think over and talk to her family prior to consenting for kyphoplasty. Patient's infection or possible sepsis should be well-controlled prior to this procedure. I will review her upright x-rays once done and we discussed the possibility of kyphoplasty with her. All questions answered. Charges/Coding Visit Charges Inpatient E&M: 13610 Init Hosp L3 12/26/24 1645 Cosigner Signature (if applicable): CC: Dr. Sveta Macias DO; SILVIA GUTHRIE~ [facility]05[facility]25 Progress note Author Sveta Macias [facility] Note Date/Time December 26, 2024 12:09p [facility] Medical Records Department [address] [place] [address] Progress Note - Hospitalist 12/26/24 1203 MR#: [id number] Acct: [id number] Name: LESLI ROSALES Rep #:[id number] : 1940 84 From: Sveta Macias DO PCP: SILVIA GUTHRIE Status:ADM IN Location: MA3 AD240-4 Reason for Visit Reason for Visit: Intractable back pain Subjective Subjective Patient states her pain is fairly well-controlled as long as she is in bed but if she tries to get up her pain significantly increases. Objective Data Objective Data Vital Signs: Vital Signs Temp Pulse Resp BP Pulse Ox O2 Del Method O2 Flow Rate 97.8 F 80 16 126/60 H 100 Nasal Cannula 2 12/26/24 09:59 12/26/24 09:59 12/26/24 10:03 12/26/24 09:59 12/26/24 09:59 12/26/24 10:03 12/26/24 10:03 Oxygen Flow Rate (L/min) 2 Oxygen Delivery Method Nasal Cannula Weight: 65 kg Body Mass Index (BMI) 28.1 Intake & Output: Intake and Output for Last 24 Hours 12/24/24 12/25/24 12/26/24 23:59 23:59 23:59 Intake Total 615 / 615 1300 / 1500 300 / 300 Output Total 100 / 100 Balance 615 / 615 1200 / 1400 300 / 300 Lab / Micro Data 12/26/24 05:49 12/26/24 05:49 Labs: Laboratory Results - last 24 hr 12/26/24 05:49: WBC 8.2, RBC 3.60 L, Hgb 11.8 L, Hct 36.3 L, MCV 100.8 H, MCH 32.8 H, MCHC 32.5, RDW Std Deviation 52.7 H, RDW Coeff of Mildred 14.2, Plt Count 162, MPV 10.7, Sodium 142, Potassium 3.7, Chloride 109 H, Carbon Dioxide 27.8, Anion Gap 5, BUN 23 H, Creatinine 0.44 L, Estim Creat Clear Calc 44.83 L, Est GFR (MDRD) Non-Af 96, BUN/Creatinine Ratio 51.7 H, Glucose 78, Calcium 8.5, Phosphorus 3.0 Micro: Microbiology 12/24/24 22:25 Urine, Clean Catch 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 Redemonstrated L2 burst fracture with mild retropulsion resulting in mild focal spinal canal stenosis. Tiny posterior epidural hematoma suspected. 2. Heterogeneous marrow signal with diffuse marrow replacement within the L2 vertebral body, perhaps slightly greater than would be expected to represent edema related to fracture. Although incompletely evaluated in the absence of IV contrast, this suggest possible pathologic fracture with underlying infiltrative process/lesion. Correlate with medical history and recommend outpatient follow-up MRI lumbar spine with and without IV contrast for complete evaluation. Some delay to allow at least partial resolution of presumed posttraumatic edema would be helpful in this regard. Fewother areas of marrow signal abnormality are identified, favored degenerative and/or related to nondisplaced fracture, most notably at the L5 superior endplate. 3. Minimally enlarged LEFT periaortic node, nonspecific and potentially reactivein the absence of known malignancy. Correlate with medical history and recommend attention on above follow-up. 4. Multilevel spondylosis without high-grade spinal canal or foraminal stenosis identified. 5. Additional description as above. Reading Location: [facility] Physical Exam Const alert, oriented x3, no apparent distress, average body habitus and well nourished Constitutional Narrative: Elderly, white female, sitting up in bed eating breakfast slightly reclined, appears comfortable currently, nontoxic General Appearance: cooperative HEENT normocephalic, head/scalp atraumatic and moist oral mucous membranes Resp normal respiratory effort, no retractions, no use of accessory muscles and clearto auscultation bilaterally Auscultation: Negative for rales, rhonchi or wheezes Cardio regular rate, regular rhythm, S1 normal heart sound, S2 normal heart sound, no murmurs, no rub, no gallops and no clicks GI normal to inspection, nondistended, normoactive bowel sounds, soft to palpation and non-tender Extremity no clubbing, cyanosis or edema Extremity Narrative: Pedal pulses are 2+ Neuro oriented x3, moves all extremities and no focal motor deficits Neuro Narrative: Increased pain with movement which limits strength but no significant focal deficits noted Speech: speech normal Psych affect normal Psych Narrative: Eye contact is good and patient interacts appropriately Assessment & Plan Assessment/Plan (1) Intractable back pain: (2) Abnormal finding on urinalysis: (3) Compression fracture of L2: (4) Compression fracture of L3 vertebra: PLAN: Plan Intractable low back pain secondary to compression fracture at L2 and L3 due to osteoporosis - CT is suspicious for osteolytic lesions in the thoracic and lumbar spine - Interestingly alk phos is not really that elevated which would be more consistent with metastatic disease - MRI was performed and shows burst fracture with mild retropulsion resulting inmild focal spinal canal stenosis with tiny posterior epidural hematoma suspected, heterogeneous marrow signal with diffuse marrow replacement in the [id number] body, large left periaortic lymph node and multilevel spondylosis without high-grade spinal canal or foraminal stenosis - Patient on Xarelto chronically for A-fib will hold in case procedures are required from orthopedic surgery and/or pain management - Continue lidocaine patch - Continue scheduled Tylenol - Continue muscle relaxants as ordered as needed - Continue as needed oral oxycodone - Continue morphine IV for breakthrough pain - Consult pain management is still pending - Continue calcium supplementation - Continue home vitamin D supplementation as level is greater than 30 - Orthopedic surgery consult is still pending - PT/OT consultation but hold off until after evaluated by orthopedic surgery UTI - Urine culture was sent for dysuria - Cultures showing 2 gram-negative rods - Possible Proteus for 1 next-sensitivities are still following so we will continue ceftriaxone for now - I do suspect any intervention will require eradication or at least 48 hours oftreatment of her urine if orthopedic surgery or pain management would like to proceed with anything - Await culture results Generalized weakness and debility secondary to the above - Will likely need placement at discharge - case management manager consulted PAF - Rivaroxaban on hold due to the above - Continue home atenolol - Currently sinus rhythm GERD - Continue home famotidine Essential hypertension - Continue home Lasix - Continue atenolol - As needed hydralazine for systolic pressure greater than 160 - History of psoriatic arthritis - Restart biologic at discharge Depression - Patient is not on any medications - monitor clinically COPD - Continue home inhalers Tobacco abuse - Remote and patient has quit DVT prophylaxis - Home Xarelto on hold - Start enoxaparin 40 daily CODE STATUS -Full code Charges/Coding Visit Charges Inpatient E&M: 45998 Subs Hosp L2 12/26/24 1209 <Electronically signed by Sveta Macias DO> Cosigner Signature (if applicable): CC: ~ [facility]igned [facility] Work Phone: 1([phone]) 835-582705-08-2025 Progress note [facility] Medical Records Department [address] [place] [address] Progress Note - Hospitalist 12/26/24 1203 MR#: [id number] Acct: [id number] Name: LESLI ROSALES Rep #:[id number] : 1940 84 From: Sveta Macias DO PCP: SILVIA GUTHRIE Status:ADM IN Location: MS3 QZ737-3 Reason for Visit Reason for Visit: Intractable back pain Subjective Subjective Patient states her pain is fairly well-controlled as long as she is in bed but if she tries to get up her pain significantly increases. Objective Data Objective Data Vital Signs: Vital Signs Temp Pulse Resp BP Pulse Ox O2 Del Method O2 Flow Rate 97.8 F 80 16 126/60 H 100 Nasal Cannula 2 12/26/24 09:59 12/26/24 09:59 12/26/24 10:03 12/26/24 09:59 12/26/24 09:59 12/26/24 10:03 12/26/24 10:03 Oxygen Flow Rate (L/min) 2 Oxygen Delivery Method Nasal Cannula Weight: 65 kg Body Mass Index (BMI) 28.1 Intake & Output: Intake and Output for Last 24 Hours 12/24/24 12/25/24 12/26/24 23:59 23:59 23:59 Intake Total 615 / 615 1300 / 1500 300 / 300 Output Total 100 / 100 Balance 615 / 615 1200 / 1400 300 / 300 Lab / Micro Data 12/26/24 05:49 12/26/24 05:49 Labs: Laboratory Results - last 24 hr 12/26/24 05:49: WBC 8.2, RBC 3.60 L, Hgb 11.8 L, Hct 36.3 L, MCV 100.8 H, MCH 32.8 H, MCHC 32.5, RDW Std Deviation 52.7 H, RDW Coeff of Mildred 14.2, Plt Count 162, MPV 10.7, Sodium 142, Potassium 3.7, Chloride 109 H, Carbon Dioxide 27.8, Anion Gap 5, BUN 23 H, Creatinine 0.44 L, Estim Creat Clear Calc44.83 L, Est GFR (MDRD) Non-Af 96, BUN/Creatinine Ratio 51.7 H, Glucose 78, Calcium 8.5, Phosphorus3.0 Micro: Microbiology 12/24/24 22:25 Urine, Clean Catch 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 Redemonstrated L2 burst fracture with mild retropulsion resulting in mild focal spinal canal stenosis. Tiny posterior epidural hematoma suspected. 2. Heterogeneous marrow signal with diffuse marrow replacement within the L2 vertebral body, perhaps slightly greater than would be expected to represent edema related to fracture. Although incompletely evaluated in the absence of IV contrast, this suggest possible pathologic fracture with underlying infiltrative process/lesion. Correlate with medical history and recommend outpatient follow-up MRI lumbar spine with and without IV contrast for complete evaluation. Some delay to allow at least partial resolution of presumed posttraumatic edema would be helpful in this regard. Fewother areas of marrow signal abnormality are identified, favored degenerative and/or related to nondisplaced fracture, most notably at the L5 superior endplate. 3. Minimally enlarged LEFT periaortic node, nonspecific and potentially reactivein the absence of known malignancy. Correlate with medical history and recommend attention on above follow-up. 4. Multilevel spondylosis without high-grade spinal canal or foraminal stenosis identified. 5. Additional description as above. Reading Location: [id number] Physical Exam Const alert, oriented x3, no apparent distress, average body habitus and well nourished Constitutional Narrative: Elderly, white female, sitting up in bed eating breakfast slightly reclined, appears comfortable currently, nontoxic General Appearance: cooperative HEENT normocephalic, head/scalp atraumatic and moist oral mucous membranes Resp normal respiratory effort, no retractions, no use of accessory muscles and clearto auscultation bilaterally Auscultation: Negative for rales, rhonchi or wheezes Cardio regular rate, regular rhythm, S1 normal heart sound, S2 normal heart sound, no murmurs, no rub, no gallops and no clicks GI normal to inspection, nondistended, normoactive bowel sounds, soft to palpation and non-tender Extremity no clubbing, cyanosis or edema Extremity Narrative: Pedal pulses are 2+ Neuro oriented x3, moves all extremities and no focal motor deficits Neuro Narrative: Increased pain with movement which limits strength but no significant focal deficits noted Speech: speech normal Psych affect normal Psych Narrative: Eye contact is good and patient interacts appropriately Assessment & Plan Assessment/Plan (1) Intractable back pain: (2) Abnormal finding on urinalysis: (3) Compression fracture of L2: (4) Compression fracture of L3 vertebra: PLAN: Plan Intractable low back pain secondary to compression fracture at L2 and L3 due to osteoporosis - CT is suspicious for osteolytic lesions in the thoracic and lumbar spine - Interestingly alk phos is not really that elevated which would be more consistent with metastaticdisease - MRI was performed and shows burst fracture with mild retropulsion resulting inmild focal spinal canal stenosis with tiny posterior epidural hematoma suspected, heterogeneous marrow signal with diffuse marrow replacement in the [id number] body, large left periaortic lymph node and multilevel spondylosis without high-grade spinal canal or foraminal stenosis - Patient on Xarelto chronically for A-fib will hold in case procedures are required from orthopedic surgery and/or pain management - Continue lidocaine patch - Continue scheduled Tylenol - Continue muscle relaxants as ordered as needed - Continue as needed oral oxycodone - Continue morphine IV for breakthrough pain - Consult pain management is still pending - Continue calcium supplementation - Continue home vitamin D supplementation as level is greater than 30 - Orthopedic surgery consult is still pending - PT/OT consultation but hold off until after evaluated by orthopedic surgery UTI - Urine culture was sent for dysuria - Cultures showing 2 gram-negative rods - Possible Proteus for 1 next-sensitivities are still following so we will continue ceftriaxone fornow - I do suspect any intervention will require eradication or at least 48 hours oftreatment of her urine if orthopedic surgery or pain management would like to proceed with anything - Await culture results Generalized weakness and debility secondary to the above - Will likely need placement at discharge - case management manager consulted PAF - Rivaroxaban on hold due to the above - Continue home atenolol - Currently sinus rhythm GERD - Continue home famotidine Essential hypertension - Continue home Lasix - Continue atenolol - As needed hydralazine for systolic pressure greater than 160 - History of psoriatic arthritis - Restart biologic at discharge Depression - Patient is not on any medications - monitor clinically COPD - Continue home inhalers Tobacco abuse - Remote and patient has quit DVT prophylaxis - Home Xarelto on hold - Start enoxaparin 40 daily CODE STATUS -Full code Charges/Coding Visit Charges Inpatient E&M: 97504 Subs Hosp L2 12/26/24 1209 Cosigner Signature (if applicable): CC: ~ [facility]igned [facility]05-07-2025 Progress note Author Sveta Macias [facility] Note Date/Time December 25, 2024 9:13pm [facility] Medical Records Department [address] [place] [address] Progress Note - Hospitalist 12/25/24 0739 MR#: [id number] Acct: [id number] Name: LESLI ROSALES Rep #:[id number] : 1940 84 From: Sveta Macias DO PCP: SILVIA GUTHRIE Status:ADM IN Location: MS3 [id number] Reason for Visit Reason for Visit: Intractable back pain Subjective Subjective Patient reports back pain centrally and that radiates down her left leg. She denies any significant tingling or numbness and denies any saddle anesthesia or issues with her bowel or bladder function. States that mobility is a big problem for her right now. Objective Data Objective Data Vital Signs: Vital Signs Temp Pulse Resp BP Pulse Ox O2 Del Method O2 Flow Rate 98 F 89 16 118/76 98 Nasal Cannula 2 12/25/24 02:11 12/25/24 02:11 12/25/24 02:11 12/25/24 02:11 12/25/24 02:11 12/25/24 02:11 12/25/24 02:11 Oxygen Flow Rate (L/min) 2 Oxygen Delivery Method Nasal Cannula Weight: 62.5 kg Body Mass Index (BMI) 26.9 Intake & Output: Intake and Output for Last 24 Hours 12/23/24 12/24/24 12/25/24 23:59 23:59 23:59 Intake Total 615 / 615 50 / 50 Output Total 100 / 100 Balance 615 / 615 -50 / -50 Lab / Micro Data 12/25/24 05:31 12/25/24 05:31 Labs: Laboratory Results - last 24 hr 12/24/24 16:20: WBC 11.8 H, RBC 4.36, Hgb 14.0, Hct 43.2, MCV 99.1 H, MCH 32.1 H, MCHC 32.4, RDW Std Deviation 53.0 H, RDW Coeff of Mildred 14.4, Plt Count 212, MPV10.4, Immature Gran % (Auto) 0.500, Neut % (Auto) 69.6, Lymph % (Auto) 20.6, [place] % (Auto) 7.6, Eos % (Auto) 1.2, Baso % (Auto) 0.5, Absolute Neuts (auto) 8.2 H, Absolute Lymphs (auto) 2.43, Nucleated RBC % 0, Sodium 141, Potassium 3.8, Chloride 106, Carbon Dioxide 27.7, Anion Gap 7, BUN 23 H, Creatinine 0.65 L, Estim Creat Clear Calc 44.70 L, Est GFR (MDRD) Non-Af 87, BUN/Creatinine Ratio35.9 H, Glucose 106 H, Calcium 9.2, Magnesium 2.1, Total Bilirubin 0.71, AST 32,ALT 20, Alkaline Phosphatase 157 H, Total Protein 5.9, Albumin 3.1 L, Globulin 2.9, Albumin/Globulin Ratio 1.1, Vitamin B12 695, TSH 1.160 12/24/24 22:25: Urine Color Manjula, Urine Clarity Clear, Urine pH 5.0, Ur Specific Bim 1.025, Urine Protein 30 H, Urine Glucose (UA) Normal, Urine Ketones 5 H, Urine Occult Blood 10 H, Urine Nitrite Negative, Urine Bilirubin 1 H, Urine Urobilinogen 1 H, Ur Leukocyte Esterase 25 H, Urine RBC 0-5 SEEN, UrineWBC 5-10 SEEN, Ur Squamous Epith Cells 5-10 SEEN, Calcium Oxalate Crystal 2+, Amorphous Sediment 3+, Urine Bacteria 3+, Urine Mucus 0 SEEN 12/25/24 05:31: WBC 9.5, RBC 3.81 L, Hgb 12.4, Hct 38.2, MCV 100.3 H, MCH 32.5 H, MCHC 32.5, RDW Std Deviation 52.2 H, RDW Coeff of Mildred 14.3, Plt Count 175, MPV10.3, Immature Gran % (Auto) 0.300, Neut % (Auto) 62.8, Lymph % (Auto) 24.4, [place] % (Auto) 9.2, Eos % (Auto) 2.6, Baso % (Auto) 0.7, Absolute Neuts (auto) 6.0, Absolute Lymphs (auto) 2.31, Nucleated RBC % 0, Sodium 141, Potassium 4.1, Chloride 109 H, Carbon Dioxide 26.1, Anion Gap 5, BUN 21 H, Creatinine 0.50 L, Estim Creat Clear Calc 43.99 L, Est GFR (MDRD) Non-Af 93, BUN/Creatinine Ratio 41.0 H, Glucose 71, Calcium 8.4, Phosphorus 3.2, Total Bilirubin 0.61, AST 28, ALT 16, Alkaline Phosphatase 127 H, Total Protein 4.9 L, Albumin 2.6 L, Globulin2.3, Albumin/Globulin Ratio 1.1 Radiography Diagnostic Testing: Radiology Impression Lumbar Spine CT 12/24/24 15:53 IMPRESSION: 1. Compression abnormalities of the L2 and L3 vertebral bodies may be acute. Marked osteoporosis is seen and there are suspected osteolytic areas throughout the lower thoracic and lumbar spine raising concern for metastatic disease. Consider MRI for further evaluation. 2. Degenerative disc disease. 3. Diffuse annular bulging at L3-4 and L4-5. 4. Other nonacute findings detailed above. Reading Location: [facility] Chest X-Ray 12/24/24 16:25 IMPRESSION: 1. Cardiomegaly without overt pulmonary edema 2. Additional description as above. Reading Location: [facility] Physical Exam Const alert, oriented x3, no apparent distress, average body habitus and well nourished Constitutional Narrative: Elderly, white female, lying in right side-lying, appears uncomfortable with movement but does not appear toxic currently in no distress HEENT head/scalp atraumatic and moist oral mucous membranes Head and Scalp: normocephalic Resp normal respiratory effort, no retractions, no use of accessory muscles and clearto auscultation bilaterally Auscultation: Negative for rales, rhonchi or wheezes Cardio regular rate, regular rhythm, S1 normal heart sound, S2 normal heart sound, no murmurs, no rub, no gallops and no clicks GI normal to inspection, nondistended, normoactive bowel sounds, soft to palpation and non-tender Extremity no clubbing, cyanosis or edema Extremity Narrative: Pedal pulses are 2+ Neuro Neuro Narrative: No focal deficits, patient with some difficulty moving due to pain, sensory appears to be intact at this time, significant difficulty with mobility Speech: speech normal Psych affect normal Psych Narrative: Eye contact is good and patient interacts appropriately Assessment & Plan Assessment/Plan (1) Intractable back pain: (2) Abnormal finding on urinalysis: (3) Compression fracture of L2: (4) Compression fracture of L3 vertebra: PLAN: Plan Intractable low back pain secondary to compression fracture at L2 and L3 due to osteoporosis - CT is suspicious for osteolytic lesions in the thoracic and lumbar spine - Interesting alk phos is not really that elevated which would be more consistent with metastatic disease - MRI was performed and shows burst fracture with mild retropulsion resulting inmild focal spinal canal stenosis with tiny posterior epidural hematoma suspected, heterogeneous marrow signal with diffuse marrow replacement in the Y6bptxpdeal body, large left periaortic lymph node and multilevel spondylosis without high-grade spinal canal or foraminal stenosis - Patient on Xarelto chronically for A-fib will hold - Lidocaine patch - Scheduled Tylenol - Muscle relaxants as ordered as needed - As needed oral oxycodone - Morphine IV for breakthrough pain - Consult pain management - Check vitamin D level and start calcium supplementation - Will consult orthopedic surgery - PT/OT consultation but hold off until after evaluated by orthopedic surgery Abnormal UA - Urine culture was sent - Continue ceftriaxone - Await culture results Generalized weakness and debility secondary to the above - Will likely need placement at discharge -case management manager consulted PAF - Rivaroxaban on hold due to #1 - Continue home atenolol - Currently sinus rhythm GERD - Continue home famotidine Essential hypertension - Continue home Lasix - Continue atenolol - As needed hydralazine for systolic pressure greater than 160 - History of psoriatic arthritis - Restart biologic at discharge Depression - Patient is not on any medications - monitor clinically COPD - Continue home inhalers Tobacco abuse - Remote and patient has quit DVT prophylaxis - Home Xarelto on hold - Will add enoxaparin tomorrow CODE STATUS Reviewed with patient she would like to be full code Charges/Coding Visit Charges Inpatient E&M: 63570 Subs Hosp L2 12/25/242112 <Electronically signed by Sveta Macias DO> Cosigner Signature (if applicable): CC: ~ [facility]igned [facility] Work Phone: 1(910) 932-179805-07-2025 Progress note [facility] Medical Records Department [address] [place] [address] Progress Note - Hospitalist 12/25/24 0739 MR#: [id number] Acct: [id number] Name: LESLI ROSALES Rep #:[id number] : 1940 84 From: Sveta Macias DO PCP: SILVIA GUTHRIE Status:ADM IN Location: MS3 GB542-5 Reason for Visit Reason for Visit: Intractable back pain Subjective Subjective Patient reports back pain centrally and that radiates down her left leg. She denies any significanttingling or numbness and denies any saddle anesthesia or issues with her bowel or bladder function.States that mobility is a big problem for her right now. Objective Data Objective Data Vital Signs: Vital Signs Temp Pulse Resp BP Pulse Ox O2 Del Method O2 Flow Rate 98 F 89 16 118/76 98 Nasal Cannula 2 12/25/24 02:11 12/25/24 02:11 12/25/24 02:11 12/25/24 02:11 12/25/24 02:11 12/25/24 02:11 12/25/24 02:11 Oxygen Flow Rate (L/min) 2 Oxygen Delivery Method Nasal Cannula Weight: 62.5 kg Body Mass Index (BMI) 26.9 Intake & Output: Intake and Output for Last 24 Hours 12/23/24 12/24/24 12/25/24 23:59 23:59 23:59 Intake Total [facility] 50 / 50 Output Total 100 / 100 Balance [facility] -50 / -50 Lab / Micro Data 12/25/24 05:31 12/25/24 05:31 Labs: Laboratory Results - last 24 hr 12/24/24 16:20: WBC 11.8 H, RBC 4.36, Hgb 14.0, Hct 43.2, MCV 99.1 H, MCH 32.1 H, MCHC 32.4, RDW Std Deviation 53.0 H, RDW Coeff of Mildred 14.4, Plt Count 212, MPV10.4, Immature Gran % (Auto) 0.500, Neut % (Auto) 69.6, Lymph % (Auto) 20.6, [place] % (Auto) 7.6, Eos % (Auto) 1.2, Baso % (Auto) 0.5, Absolute Neuts (auto) 8.2 H, Absolute Lymphs (auto) 2.43, Nucleated RBC % 0, Sodium 141, Potassium 3.8, Chloride 106, Carbon Dioxide 27.7, Anion Gap 7, BUN 23 H, Creatinine 0.65 L, Estim Creat Clear Calc 44.70 L, Est GFR (MDRD) Non-Af 87, BUN/Creatinine Ratio35.9 H, Glucose 106 H, Calcium 9.2, Magnesium 2.1, Total Bilirubin 0.71, AST 32,ALT 20, Alkaline Phosphatase 157 H, Total Protein 5.9, Albumin 3.1 L, Globulin 2.9, Albumin/Globulin Ratio 1.1, Vitamin B12 695, TSH 1.160 12/24/24 22:25: Urine Color Manjula, Urine Clarity Clear, Urine pH 5.0, Ur Specific Bim 1.025, Urine Protein 30 H, Urine Glucose (UA) Normal, Urine Ketones 5 H, Urine Occult Blood 10 H, Urine Nitrite Negative, Urine Bilirubin 1 H, Urine Urobilinogen 1 H, Ur Leukocyte Esterase 25 H, Urine RBC 0-5 SEEN, UrineWBC 5-10 SEEN, Ur Squamous Epith Cells 5-10 SEEN, Calcium Oxalate Crystal 2+, Amorphous Sediment 3+, Urine Bacteria 3+, Urine Mucus 0 SEEN 12/25/24 05:31: WBC 9.5, RBC 3.81 L, Hgb 12.4, Hct 38.2, MCV 100.3 H, MCH 32.5 H, MCHC 32.5, RDW Std Deviation 52.2 H, RDW Coeff of Mildred 14.3, Plt Count 175, MPV10.3, Immature Gran % (Auto) 0.300, Neut % (Auto) 62.8, Lymph % (Auto) 24.4, [place] % (Auto) 9.2, Eos % (Auto) 2.6, Baso % (Auto) 0.7, Absolute Neuts (auto) 6.0, Absolute Lymphs (auto) 2.31, Nucleated RBC % 0, Sodium 141, Potassium 4.1, Chloride 109 H, Carbon Dioxide 26.1, Anion Gap 5, BUN 21 H, Creatinine 0.50 L, Estim Creat Clear Calc 43.99 L, Est GFR (MDRD) Non-Af 93, BUN/Creatinine Ratio 41.0 H, Glucose 71, Calcium 8.4, Phosphorus 3.2, Total Bilirubin 0.61, AST 28, ALT 16, Alkaline Phosphatase 127 H, Total Protein 4.9 L, Albumin 2.6 L, Globulin2.3, Albumin/Globulin Ratio 1.1 Radiography Diagnostic Testing: Radiology Impression Lumbar Spine CT 12/24/24 15:53 IMPRESSION: 1. Compression abnormalities of the L2 and L3 vertebral bodies may be acute. Marked osteoporosis isseen and there are suspected osteolytic areas throughout the lower thoracic and lumbar spine raising concern for metastatic disease. Consider MRI for further evaluation. 2. Degenerative disc disease. 3. Diffuse annular bulging at L3-4 and L4-5. 4. Other nonacute findings detailed above. Reading Location: [facility] Chest X-Ray 12/24/24 16:25 IMPRESSION: 1. Cardiomegaly without overt pulmonary edema 2. Additional description as above. Reading Location: [id number] Physical Exam Const alert, oriented x3, no apparent distress, average body habitus and well nourished Constitutional Narrative: Elderly, white female, lying in right side-lying, appears uncomfortable with movement but does not appear toxic currently in no distress HEENT head/scalp atraumatic and moist oral mucous membranes Head and Scalp: normocephalic Resp normal respiratory effort, no retractions, no use of accessory muscles and clearto auscultation bilaterally Auscultation: Negative for rales, rhonchi or wheezes Cardio regular rate, regular rhythm, S1 normal heart sound, S2 normal heart sound, no murmurs, no rub, no gallops and no clicks GI normal to inspection, nondistended, normoactive bowel sounds, soft to palpation and non-tender Extremity no clubbing, cyanosis or edema Extremity Narrative: Pedal pulses are 2+ Neuro Neuro Narrative: No focal deficits, patient with some difficulty moving due to pain, sensory appears to be intact atthis time, significant difficulty with mobility Speech: speech normal Psych affect normal Psych Narrative: Eye contact is good and patient interacts appropriately Assessment & Plan Assessment/Plan (1) Intractable back pain: (2) Abnormal finding on urinalysis: (3) Compression fracture of L2: (4) Compression fracture of L3 vertebra: PLAN: Plan Intractable low back pain secondary to compression fracture at L2 and L3 due to osteoporosis - CT is suspicious for osteolytic lesions in the thoracic and lumbar spine - Interesting alk phos is not really that elevated which would be more consistent with metastatic disease - MRI was performed and shows burst fracture with mild retropulsion resulting inmild focal spinal canal stenosis with tiny posterior epidural hematoma suspected, heterogeneous marrow signal with diffuse marrow replacement in the R0pxpiulkdp body, large left periaortic lymph node and multilevel spondylosis without high-grade spinal canal or foraminal stenosis - Patient on Xarelto chronically for A-fib will hold - Lidocaine patch - Scheduled Tylenol - Muscle relaxants as ordered as needed - As needed oral oxycodone - Morphine IV for breakthrough pain - Consult pain management - Check vitamin D level and start calcium supplementation - Will consult orthopedic surgery - PT/OT consultation but hold off until after evaluated by orthopedic surgery Abnormal UA - Urine culture was sent - Continue ceftriaxone - Await culture results Generalized weakness and debility secondary to the above - Will likely need placement at discharge -case management manager consulted PAF - Rivaroxaban on hold due to #1 - Continue home atenolol - Currently sinus rhythm GERD - Continue home famotidine Essential hypertension - Continue home Lasix - Continue atenolol - As needed hydralazine for systolic pressure greater than 160 - History of psoriatic arthritis - Restart biologic at discharge Depression - Patient is not on any medications - monitor clinically COPD - Continue home inhalers Tobacco abuse - Remote and patient has quit DVT prophylaxis - Home Xarelto on hold - Will add enoxaparin tomorrow CODE STATUS Reviewed with patient she would like to be full code Charges/Coding Visit Charges Inpatient E&M: 50902 Subs Hosp L2 12/25/242112 Cosigner Signature (if applicable): CC: ~ Signed [facility]05-07-[facility]25 History and physical note Author [facility] Note Date/Time December 25, 2024 6:54am [facility] Medical Records Department [address] [place] [address] H&P Exam - Hospitalist 12/24/241917 MR#: [id number] Acct: [id number] Name: LESLI ROSALES Rep #:[id number] : 1940 84 From: Kevin Benito DO PCP: SILVIA GUTHRIE Status:ADM IN Location: [facility] [id number] HPI - General General Date of Admission: 12/24/24 Date of Service: 12/24/24 Chief Complaint: Severe Back Pain. HPI Narrative LESLI ROSALES, is a 84 F with a past medical history of essential hypertension; on a atenolol and furosemide, overweight; with a BMI of 27.8 this admission, paroxysmal atrial fibrillation; on rivaroxaban, chronic diastolic CHF; with preserved LVEF ~60% with normal LV size, LA severely enlarged RA moderately enlarged with mild 1+ tricuspid valve insufficiency (11/17/2024), history of tobacco abuse; with subsequent COPD on tiotropium bromide daily as needed and every 6 as needed albuterol, history of depression with anxiety; currently not on treatment, GERD; on famotidine, history of psoriatic arthritis;on risankizumab, history of shingles, history of proximal fracture of the Right humerus, OA; with chronic bilateral hip and back pain on lidocaine patch and as needed oxycodone 3 times daily with [facility] secondary to pneumonia complicated by acute hypoxia, acute metabolic encephalopathy and AE CHF with elevated NT pro-BNP II of ~22K and elevated troponin of 482 pg/mL attributed to acute cardiac strain from septic shock compounded by NAT and acute transaminitis due to shock liver resulting in severe physical deconditioning with patient [facility] [place] [facility] who now re[facility] to [facility] ER complaining of severe back pain. Ms. Rosales reports she has had chronic back pain for the past 5 months which was made worse after her had had fallen backward twice in August 2024 and she tried to help assist him in getting up with pain since that time. She then apparently drove herself to [facility] where she had a CT scan of the spine which showed no acute fractures at that time and she was placed on analgesics. Unfortunately, her symptoms have only worsened since that time withpain worse with movement, severe, sharp and radiating into both hips. Accordingto the ER physician patient apparently [facility] after her insurance stopped paying. She states her back pain is now so severe she is urinating and defecating into a towel because she is too sore to get up - so she finally decided to come in for further evaluation and treatment. In the ER she was noted to have a lumbar CT without contrast that revealed compression abnormalities of the L2 and L3 vertebral bodies which may be acute with marked osteoporosis and suspected osteolytic lesions throughout the lower thoracic and lumbar spine raising concern for metastatic disease with MRI recommended for further evaluation in addition to degenerative disc disease, diffuse annular bulging at L3-L4 and L4-L5 complicated by clinical evidence of Generalized Weakness with Ambulatory Dysfunction with Leukocytosis of 11.8K present on admission with UA positive forAcute Cystitis; with microscopic hematuria but otherwise unremarkable laboratorystudies and vital signs. The ER physician spoke to the orthopedic-spine surgeonon-call who is agreeable to admission with MRI pending in the AM and no recommendation for IV dexamethasone or other acute treatment at this time. She was then admitted to the general medical floor for ongoing care for status is expected to extend beyond 2 midnights. [facility] Medical History Anxiety Depression Chronic pain GERD (gastroesophageal reflux disease) On home oxygen therapy Atrial fibrillation Congestive heart failure (CHF) Hypertension Shingles Psoriatic arthritis COPD (chronic obstructive pulmonary disease) A-fib Home Medications ?Medication ?Instructions ?Recorded ?Last Taken ?Type atenolol 25 mg tablet 25 mg PO DAILY 06/26/2102/12 History famotidine 20 mg tablet 20 mg PO DAILY 06/26/2102/12 History folic acid 1 mg tablet 1 mg PO DAILY supplement 02/0812/24/24 History rivaroxaban 20 mg tablet (Xarelto) 20 mg PO DAILY 02/0812/24/24 History cholecalciferol (vitamin D3) 50 50 mcg PO DAILY 12/24/24 History mcg (2,000 unit) capsule furosemide 20 mg tablet 20 mg PO DAILY 11/17/24 Unkn own History albuterol sulfate 90 mcg/actuation 2 puff inhalation Q 6H PRN dyspnea 11/18/24 Unknown History aerosol inhaler tiotropium bromide 18 mcg capsule 1 cap inhalation RUTH LY PRN 11/18/24 12/24/24 History with inhalation device (Spiriva shortness of breath with HandiHaler) lidocaine 5 % topical patch 2 patch topical DAILY #0 e a 11/24/24 Unknown Rx oxycodone-acetaminophen 5 mg-325 1 tab PO TID PRN pain 12/24/24 Unknown History mg tablet risankizumab-rzaa 150 mg/mL 150 mg subcut Q90D 5 12/18/24 History subcutaneous pen injector (Skyrizi) Allergy/AdvReac Type Severity Reaction Status Date / Time No Known Allergies Allergy Verified 12/24/24 15:23 Surgical History History of partial hysterectomy History of bladder suspension procedure History of appendectomy History of cholecystectomy H/O hernia repair Social History household members: none Smoking Status: Former smoker substance use type: does not use ROS ROS Narrative Review of Systems: Constitutional: Patient denies fever or chills. Eyes: Patient denies changes in vision or discharge from eyes. ENT: Patient denies runny nose, sore throat or ear pain. Resp: Patient denies shortness of breath or cough. CV: Patient denies chest pain, palpitations, heart racing or lower extremity edema. GI: Patient denies abdominal pain, nausea, vomiting, diarrhea or constipation. : Patient denies dysuria, hematuria or urinary frequency. MSK: Patient admits to severe low back pain made worse with movement that is sharp and radiates into her hips as per HPI. Skin: Patient denies rash, abscess, wounds or jaundice. Psych: Patient denies symptoms of uncontrolled depression or anxiety. Neuro: Patient admits to back pain with radiation into her hips that is left herunable to ambulate due to pain but she denies headache or other focal neurologicdeficits. Allergy: Patient denies lip swelling, tongue swelling or urticaria. Hematology: Patient admits to easy bleeding and easy bruisability on rivaroxaban. Endocrinology: Patient denies polyuria, polydipsia, polyphagia or heat/cold intolerance. 14 point ROS otherwise negative save for positives noted above in HPI. Vital Signs Vital Signs Vital Signs: 12/24/24 15:20 12/24/24 16:41 12/24/24 16:41 Temperature 99 F Temperature Source Oral Pulse Rate 79 Respiratory Rate 13 Blood Pressure 134/83 H Blood Pressure Mean 100 Pulse Ox 93 83 96 Oxygen Delivery Method Room Air Room Air Nasal Cannula Oxygen Flow Rate (L/min) 2 12/24/24 18:00 12/24/24 19:00 Temperature 98.6 F Temperature Source Pulse Rate 57 L 57 L Respiratory Rate 12 12 Blood Pressure 148/78 H 148/78 H Blood Pressure Mean 101 101 Pulse Ox 98 98 Oxygen Delivery Method Oxygen Flow Rate (L/min) Weight Weight: 142 lb 6.698 oz Body Mass Index (BMI) 27.8 Physical Exam Const alert, oriented x3, no apparent distress and average body habitus Constitutional Narrative: Patient nontoxic in appearance. General Appearance: cooperative HEENT normocephalic, head/scalp atraumatic, hearing grossly normal bilaterally and moist oral mucous membranes Eyes PERRL, EOMs intact bilaterally and conjunctivae normal Neck no lymphadenopathy, supple and no JVD Resp normal respiratory effort, no retractions, no use of accessory muscles and clearto auscultation bilaterally Cardio regular rate and regular rhythm GI normal to inspection, nondistended, normoactive bowel sounds, soft to palpation,non-tender and non-distended Extremity normal to inspection, full ROM and no clubbing, cyanosis or edema Extremity Narrative: Patient able to move her lower extremities and flex and extend knees bilaterallywith palpable pulses throughout no signs of neurovascular compromise. Skin Skin Narrative: Patient has evidence of rash, abscess, wounds or jaundice. Neuro oriented x3, CN's II-XII intact bilaterally, moves all extremities and no focal motor deficits Sensorium / Orientation: awake, alert, oriented to person, oriented to place andoriented to time Speech: speech normal Psych affect normal Results Medical Records Data Attestation: I reviewed the patient's medical records Lab / Micro Data Attestation: I reviewed the patient's lab results. Lab results narrative: RUN DATE: 12/25/24 [facility], DEPARTMENT OF LABORATORIES PAGE 1 RUN TIME: 215 Specimen Inquiry [address], [place], [place], [id number] PATIENT: LESLI ROSALES LOC: MS3 U #: [id number] : 1940 AGE/SX: 84/F FACILITY: [facility] [place] [place]: Chance Johnson STATUS:ADM IN ED: 1 DIS: ~ SPEC #: [id number] PAMELA: 12/24/24 STATUS: COMP REQ #: [id number] RECD: 12/24/[address]: Dr. Oskar Camargo MD ENTERED: 12/24/24-[address] [facility] [address]: SILVIA GUTHRIE ~ COMMENTS: COLOR OF URINE MAY AFFECT DIPSTICK RESULTS. QUERIES: How was Urine Obtained? CLEAN CATCH Test Result Flag Reference Range COMPLETE UA COLOR Manjula Yellow Urine Clarity Clear Clear GLUCOSE, UR Normal Normal mg/dl BILIRUBIN URINE 1 H Negative mg/dL COLOR OF URINE MAY AFFECT DIPSTICK RESULTS. KETONE UR 5 H Negative mg/dl SP.GR. DIPSTX 1.025 1.002-1.030 pH UR 5.0 5.0 - 8.0 PROT DIPSTX 30 H Negative mg/dl UROBILI 1 H Normal mg/dl NITRITE Negative Negative OCCULT BLOOD-UR 10 H Negative /ul LEUK ESTERASE 25 H Negative /ul WBC 5-10 SEEN 0-5 /hpf RBC 0-5 SEEN 0-5 /hpf EPI,SQUAMOUS 5-10 SEEN 5-10 /hpf BACTERIA 3+ None Seen /hpf MUCUS 0 SEEN <or=2+ /hpf CA OX CRYSTAL 2+ <or=2+ /hpf AMORPHOUS 3+ 12/24/24 16:20 12/24/24 16:20 Labs: Laboratory Results - last 24 hr 12/24/24 16:20: WBC 11.8 H, RBC 4.36, Hgb 14.0, Hct 43.2, MCV 99.1 H, MCH 32.1 H, MCHC 32.4, RDW Std Deviation 53.0 H, RDW Coeff of Mildred 14.4, Plt Count 212, MPV10.4, Immature Gran % (Auto) 0.500, Neut % (Auto) 69.6, Lymph % (Auto) 20.6, [place] % (Auto) 7.6, Eos % (Auto) 1.2, Baso % (Auto) 0.5, Absolute Neuts (auto) 8.2 H, Absolute Lymphs (auto) 2.43, Nucleated RBC % 0, Sodium 141, Potassium 3.8, Chloride 106, Carbon Dioxide 27.7, Anion Gap 7, BUN 23 H, Creatinine 0.65 L, Estim Creat Clear Calc 44.70 L, Est GFR (MDRD) Non-Af 87, BUN/Creatinine Ratio35.9 H, Glucose 106 H, Calcium 9.2, Total Bilirubin 0.71, AST 32, ALT 20, Alkaline Phosphatase 157 H, Total Protein 5.9, Albumin 3.1 L, Globulin 2.9, Albumin/Globulin Ratio 1.1 Imaging Radiology Impression Lumbar Spine CT 12/24/24 15:53 IMPRESSION: 1. Compression abnormalities of the L2 and L3 vertebral bodies may be acute. Marked osteoporosis is seen and there are suspected osteolytic areas throughout the lower thoracic and lumbar spine raising concern for metastatic disease. Consider MRI for further evaluation. 2. Degenerative disc disease. 3. Diffuse annular bulging at L3-4 and L4-5. 4. Other nonacute findings detailed above. Reading Location: [facility] Chest X-Ray 12/24/24 16:25 IMPRESSION: 1. Cardiomegaly without overt pulmonary edema 2. Additional description as above. Reading Location: [id number] Assessment & Plan Assessment/Plan (1) Acute cystitis with hematuria: (2) Leukocytosis: QUALIFIERS: Leukocytosis type: unspecified Qualified Code(s): D72.829 - Elevated white blood cell count, unspecified (3) Closed compression fracture of lumbosacral spine: QUALIFIERS: Encounter type: initial encounter Qualified Code(s): S32.000A - Wedge compression fracture of unspecified lumbar vertebra, initial encounter for closed fracture (4) Back pain: QUALIFIERS: Back pain laterality: bilateral Back pain location: low back pain Chronicity: acute Sciatica presence: unspecified whether sciaticapresent Qualified Code(s): M54.50 - Low back pain, unspecified (5) Inability to perform activities of daily living: (6) Unable to care for self: (7) Generalized weakness: (8) Ambulatory dysfunction: (9) Paroxysmal atrial fibrillation: (10) Chronic anticoagulation: (11) Overweight (BMI 25.0-29.9): PLAN: Plan 1. UA positive for Acute Cystitis; with microscopic hematuria with Leukocytosisof 11.8K present on admission - Admit to general medical floor. Start empiric IV ceftriaxone and await culture and sensitivity data. 2. Severe Back Pain with lumbar CT without contrast that revealed compression abnormalities of the L2 and L3 vertebral bodies which may be acute with marked osteoporosis and suspected osteolytic lesions throughout the lower thoracic and lumbar spine raising concern for metastatic disease with MRI recommended for further evaluation in addition to degenerative disc disease, diffuse annular bulging at L3-L4 and L4-L5 complicating #1 - Proceed with lumbar spine MRI in a.m. as recommended by radiologist and orthopedic-spine surgeon with the patientordered alprazolam 1 mg to be given 1 hour prior to MRI due to claustrophobia. Give acetaminophen as needed for [id number] (level 1-5/10) pain or fever. Give morphine IV as needed for severe (level 6-10/10) pain. Finally, we will formally consult ortho-spine surgeon to see patient on rounds in a.m. for further recommendations without appreciated advance. 3. Patient Unable to Care for Self and Unable to perform ADLs with Generalized Weakness and Ambulatory Dysfunction due to #1 & #2 in the setting of previously known OA; with chronic bilateral hip and back pain on lidocaine patch and as needed oxycodone 3 times daily - PT/OT and Case Management consult and treat on rounds in a.m. will likely be permanent ECF placement given patient's severe degree of debility with help appreciated in advance. 4. Recent admission here from November 17, 2024 to November 24, 2024 for treatment of septic shock secondary to pneumonia complicated by acute hypoxia, acute metabolic encephalopathy and AE CHF with elevated NT pro-BNP II of ~22K and elevated troponin of 482 pg/mL attributed to acute cardiac strain from septic shock compounded by NAT and acute transaminitis due to shock liver resulting in severe physical deconditioning with patient [facility] [place] for [facility] rehabilitation compounding #1 - #3 - Noted. 5. Paroxysmal atrial fibrillation; on rivaroxaban adding to the medical complexity of #1 - #4 - Maintain current treatment with ortho-spine surgeon doubting metastatic lesions suspected on CT. 6. Overweight; with a BMI of 27.8 this admission adding to the burden of disease outlined from #1 - #5 - Weight loss will be recommended. Check TSH. 7. Essential hypertension; on a atenolol and furosemide - Resume current treatment plus give prn IV hydralazine prn for systolic blood pressure > 160 mmHg. 8. History of tobacco abuse; with subsequent COPD on tiotropium bromide daily as needed and every 6 as needed albuterol - Stable with no evidence of acute flare at this time. Continue present management. 9. History of depression with anxiety; currently not on treatment - Noted. 10. GERD; on famotidine - Maintain famotidine as previous. 11. History of psoriatic arthritis; on risankizumab - Stable. Restart risankizumab as outpatient. 12. History of shingles - Noted with no evidence of acute flare at this time. 13. History of proximal fracture of the Right humerus - Noted. 14. DVT prophylaxis - Patient already on rivaroxaban for #4 which will be continued. Total time: Approximately (but not less than) 75 minutes. Charges/Coding Visit Charges Inpatient E&M: 01712 Init Hosp L3 12/25/24 0654 <Electronically signed by Kevin Caballero DO> Cosigner Signature (if applicable): CC: Dr. Kevin Caballero, ; SILVIA GUTHRIE~ Signed [facility] Work Phone: 1(274) 687-287805-07-2025 History and physical note [facility] Medical Records Department [address] [place] [id number] H&P Exam - Hospitalist 12/24/241917 MR#: [id number] Acct: [id number] Name: LESLI ROSALES Rep #:[id number] : 1940 84 From: Kevin Benito DO PCP: SILVIA GUTHRIE Status:ADM IN Location: [facility] [id number] [facility] - General General Date of Admission: 12/24/24 Date of Service: 12/24/24 Chief Complaint: Severe Back Pain. HPI Narrative LESLI ROSALES, is a 84 F with a past medical history of essential hypertension; on a atenolol and furosemide, overweight; with a BMI of 27.8 this admission, paroxysmal atrial fibrillation; on rivaroxaban, chronic diastolic CHF; with preserved LVEF ~60% with normal LV size, LA severely enlarged RA moderately enlarged with mild 1+ tricuspid valve insufficiency (11/17/2024), history of tobacco abuse; with subsequent COPD on tiotropium bromide daily as needed and every 6 as needed albuterol, history of depression with anxiety; currently not on treatment, GERD; on famotidine, history of psoriatic arthritis;on risankizumab, history of shingles, history of proximal fracture of the Right humerus, OA; with chronic bilateral hip and back pain on lidocaine patch and as needed oxycodone 3 times daily [facility] secondary to pneumonia complicated by acute hypoxia, acute metabolic encephalopathy and AE CHF with elevated NT pro-BNP II of ~22K and elevated troponin of 482 pg/mL attributed to acute cardiac strain from septic shock compounded by NAT and acute transaminitis due to shock liver resulting in severe physical deconditioning with patient [facility] [place] [facility] who now re-presents to [facility] ER complaining of severe backpain. Ms. Rosales reports she has had chronic back pain for the past 5 months which was made worse afterher had had fallen backward twice in August 2024 and she tried to help assist him in getting up with pain since that time. She then apparently drove herself to [facility] where she had a CT scan of the spine which showed no acute fractures at that time and she was placed on analgesics. Unfortunately, her symptoms have only worsened since that time withpain worse with movement, severe,sharp and radiating into both hips. Accordingto the ER physician patient apparently [facility] after her insurance stopped paying. She states her back pain is now so severe she is urinating and defecating into a towel because she is too sore to get up - so she finally decided to come in for further evaluation and treatment. In the ER she was noted to have a lumbar CT without contrast that revealed compression abnormalities of the L2 and L3 vertebral bodies which may be acute with marked osteoporosis and suspected osteolytic lesions throughout the lower thoracic and lumbar spine raising concern for metastatic disease with MRI recommended for further evaluation in addition to degenerative disc disease, diffuse annular bulging at L3-L4and L4-L5 complicated by clinical evidence of Generalized Weakness with Ambulatory Dysfunction withLeukocytosis of 11.8K present on admission with UA positive forAcute Cystitis; with microscopic hematuria but otherwise unremarkable laboratorystudies and vital signs. The ER physician spoke to the orthopedic- spine surgeonon-call who is agreeable to admission with MRI pending in the AM and no recommendation for IV dexamethasone or other acute treatment at this time. She was then admitted to the general medical floor for ongoing care for status is expected to extend beyond 2 midnights. [facility] Medical History Anxiety Depression Chronic pain GERD (gastroesophageal reflux disease) On home oxygen therapy Atrial fibrillation Congestive heart failure (CHF) Hypertension Shingles Psoriatic arthritis COPD (chronic obstructive pulmonary disease) A-fib Home Medications ?Medication ?Instructions ?Recorded ?Last Taken ?Type atenolol 25 mg tablet 25 mg PO DAILY 06/26/2102/12 History famotidine 20 mg tablet 20 mg PO DAILY 06/26/2102/12 History folic acid 1 mg tablet 1 mg PO DAILY supplement 02/0812/24/24 History rivaroxaban 20 mg tablet (Xarelto) 20 mg PO DAILY 02/0812/24/24 History cholecalciferol (vitamin D3) 50 50 mcg PO DAILY 12/24/24 History mcg (2,000 unit) capsule furosemide 20 mg tablet 20 mg PO DAILY 11/17/24 Unkn own History albuterol sulfate 90 mcg/actuation 2 puff inhalation Q 6H PRN dyspnea 11/18/24 Unknown History aerosol inhaler tiotropium bromide 18 mcg capsule 1 cap inhalation RUTH LY PRN 11/18/24 12/24/24 History with inhalation device (Spiriva shortness of breath with HandiHaler) lidocaine 5 % topical patch 2 patch topical DAILY #0 e a 11/24/24 Unknown Rx oxycodone-acetaminophen 5 mg-325 1 tab PO TID PRN pain 12/24/24 Unknown History mg tablet risankizumab-rzaa 150 mg/mL 150 mg subcut Q90D 5 12/18/24 History subcutaneous pen injector (Skyrizi) Allergy/AdvReac Type Severity Reaction Status Date / Time No Known Allergies Allergy Verified 12/24/24 15:23 Surgical History History of partial hysterectomy History of bladder suspension procedure History of appendectomy History of cholecystectomy H/O hernia repair Social History household members: none Smoking Status: Former smoker substance use type: does not use ROS ROS Narrative Review of Systems: Constitutional: Patient denies fever or chills. Eyes: Patient denies changes in vision or discharge from eyes. ENT: Patient denies runny nose, sore throat or ear pain. Resp: Patient denies shortness of breath or cough. CV: Patient denies chest pain, palpitations, heart racing or lower extremity edema. GI: Patient denies abdominal pain, nausea, vomiting, diarrhea or constipation. : Patient denies dysuria, hematuria or urinary frequency. MSK: Patient admits to severe low back pain made worse with movement that is sharp and radiates into her hips as per HPI. Skin: Patient denies rash, abscess, wounds or jaundice. Psych: Patient denies symptoms of uncontrolled depression or anxiety. Neuro: Patient admits to back pain with radiation into her hips that is left herunable to ambulate due to pain but she denies headache or other focal neurologicdeficits. Allergy: Patient denies lip swelling, tongue swelling or urticaria. Hematology: Patient admits to easy bleeding and easy bruisability on rivaroxaban. Endocrinology: Patient denies polyuria, polydipsia, polyphagia or heat/cold intolerance. 14 point ROS otherwise negative save for positives noted above in HPI. Vital Signs Vital Signs Vital Signs: 12/24/24 15:20 12/24/24 16:41 12/24/24 16:41 Temperature 99 F Temperature Source Oral Pulse Rate 79 Respiratory Rate 13 Blood Pressure 134/83 H Blood Pressure Mean 100 Pulse Ox 93 83 96 Oxygen Delivery Method Room Air Room Air Nasal Cannula Oxygen Flow Rate (L/min) 2 12/24/24 18:00 12/24/24 19:00 Temperature 98.6 F Temperature Source Pulse Rate 57 L 57 L Respiratory Rate 12 12 Blood Pressure 148/78 H 148/78 H Blood Pressure Mean 101 101 Pulse Ox 98 98 Oxygen Delivery Method Oxygen Flow Rate (L/min) Weight Weight: 142 lb 6.698 oz Body Mass Index (BMI) 27.8 Physical Exam Const alert, oriented x3, no apparent distress and average body habitus Constitutional Narrative: Patient nontoxic in appearance. General Appearance: cooperative HEENT normocephalic, head/scalp atraumatic, hearing grossly normal bilaterally and moist oral mucous membranes Eyes PERRL, EOMs intact bilaterally and conjunctivae normal Neck no lymphadenopathy, supple and no JVD Resp normal respiratory effort, no retractions, no use of accessory muscles and clearto auscultation bilaterally Cardio regular rate and regular rhythm GI normal to inspection, nondistended, normoactive bowel sounds, soft to palpation,non-tender and non-distended Extremity normal to inspection, full ROM and no clubbing, cyanosis or edema Extremity Narrative: Patient able to move her lower extremities and flex and extend knees bilaterallywith palpable pulses throughout no signs of neurovascular compromise. Skin Skin Narrative: Patient has evidence of rash, abscess, wounds or jaundice. Neuro oriented x3, CN's II-XII intact bilaterally, moves all extremities and no focal motor deficits Sensorium / Orientation: awake, alert, oriented to person, oriented to place andoriented to time Speech: speech normal Psych affect normal Results Medical Records Data Attestation: I reviewed the patient's medical records Lab / Micro Data Attestation: I reviewed the patient's lab results. Lab results narrative: RUN DATE: 12/25/24 [facility], DEPARTMENT OF LABORATORIES PAGE 1 RUN TIME: 215 [address], [place], [address] PATIENT: LESLI ROSALES LOC: MS3 U #: [id number] : 1940 AGE/SX: 84/F FACILITY: [facility] [place] [facility] [place]: Dr. Kevin Caballero, [place] STATUS:ADM IN ED: 1 DIS: ~ SPEC #: [id number] PAMELA: 12/24/24 STATUS: COMP REQ #: [id number] RECD: 12/24/[address]: Dr. Oskar Camargo MD ENTERED: 12/24/[address]: SILVIA GUTHRIE ~ COMMENTS: COLOR OF URINE MAY AFFECT DIPSTICK RESULTS. QUERIES: How was Urine Obtained? CLEAN CATCH Test Result Flag Reference Range COMPLETE UA COLOR Manjula Yellow Urine Clarity Clear Clear GLUCOSE, UR Normal Normal mg/dl BILIRUBIN URINE 1 H Negative mg/dL COLOR OF URINE MAY AFFECT DIPSTICK RESULTS. KETONE UR 5 H Negative mg/dl SP.GR. DIPSTX 1.025 1.002-1.030 pH UR 5.0 5.0 - 8.0 PROT DIPSTX 30 H Negative mg/dl UROBILI 1 H Normal mg/dl NITRITE Negative Negative OCCULT BLOOD-UR 10 H Negative /ul LEUK ESTERASE 25 H Negative /ul WBC 5-10 SEEN 0-5 /hpf RBC 0-5 SEEN 0-5 /hpf EPI,SQUAMOUS 5-10 SEEN 5-10 /hpf BACTERIA 3+ None Seen /hpf MUCUS 0 SEEN CA OX CRYSTAL 2+ AMORPHOUS 3+ 12/24/24 16:20 12/24/24 16:20 Labs: Laboratory Results - last 24 hr 12/24/24 16:20: WBC 11.8 H, RBC 4.36, Hgb 14.0, Hct 43.2, MCV 99.1 H, MCH 32.1 H, MCHC 32.4, RDW Std Deviation 53.0 H, RDW Coeff of Mildred 14.4, Plt Count 212, MPV10.4, Immature Gran % (Auto) 0.500, Neut % (Auto) 69.6, Lymph % (Auto) 20.6, [place] % (Auto) 7.6, Eos % (Auto) 1.2, Baso % (Auto) 0.5, Absolute Neuts (auto) 8.2 H, Absolute Lymphs (auto) 2.43, Nucleated RBC % 0, Sodium 141, Potassium 3.8, Chloride 106, Carbon Dioxide 27.7, Anion Gap 7, BUN 23 H, Creatinine 0.65 L, Estim Creat Clear Calc 44.70 L, Est GFR (MDRD) Non-Af 87, BUN/Creatinine Ratio35.9 H, Glucose 106 H, Calcium 9.2, Total Bilirubin 0.71, AST 32, ALT 20, Alkaline Phosphatase 157 H, Total Protein 5.9, Albumin 3.1 L, Globulin 2.9, Albumin/Globulin Ratio 1.1 Imaging Radiology Impression Lumbar Spine CT 12/24/24 15:53 IMPRESSION: 1. Compression abnormalities of the L2 and L3 vertebral bodies may be acute. Marked osteoporosis isseen and there are suspected osteolytic areas throughout the lower thoracic and lumbar spine raising concern for metastatic disease. Consider MRI for further evaluation. 2. Degenerative disc disease. 3. Diffuse annular bulging at L3-4 and L4-5. 4. Other nonacute findings detailed above. Reading Location: [facility] Chest X-Ray 12/24/24 16:25 IMPRESSION: 1. Cardiomegaly without overt pulmonary edema 2. Additional description as above. Reading Location: [id number] Assessment & Plan Assessment/Plan (1) Acute cystitis with hematuria: (2) Leukocytosis: QUALIFIERS: Leukocytosis type: unspecified Qualified Code(s): D72.829 - Elevated white blood cell count, unspecified (3) Closed compression fracture of lumbosacral spine: QUALIFIERS: Encounter type: initial encounter Qualified Code(s): S32.000A - Wedge compression fracture of unspecified lumbar vertebra, initial encounter for closed fracture (4) Back pain: QUALIFIERS: Back pain laterality: bilateral Back pain location: low back pain Chronicity: acute Sciatica presence: unspecified whether sciaticapresent Qualified Code(s): M54.50 - Low back pain, unspecified (5) Inability to perform activities of daily living: (6) Unable to care for self: (7) Generalized weakness: (8) Ambulatory dysfunction: (9) Paroxysmal atrial fibrillation: (10) Chronic anticoagulation: (11) Overweight (BMI 25.0-29.9): PLAN: Plan 1. UA positive for Acute Cystitis; with microscopic hematuria with Leukocytosisof 11.8K present on admission - Admit to general medical floor. Start empiric IV ceftriaxone and await culture and sensitivity data. 2. Severe Back Pain with lumbar CT without contrast that revealed compression abnormalities of the L2 and L3 vertebral bodies which may be acute with marked osteoporosis and suspected osteolytic lesions throughout the lower thoracic and lumbar spine raising concern for metastatic disease with MRI recommended for further evaluation in addition to degenerative disc disease, diffuse annular bulging at L3-L4 and L4-L5 complicating #1 - Proceed with lumbar spine MRI in a.m. as recommended by radiologist and orthopedic-spine surgeon with the patientordered alprazolam 1 mg to be given 1 hour prior to MRI due to claustrophobia. Give acetaminophen as needed for nuue-xt-eqenvozm (level 1-5/10) pain or fever. Give morphine IV as needed for severe (level 6-10/10) pain. Finally, we will formally consult ortho-spine surgeon to see patient on rounds in a.m. for further recommendations without appreciated advance. 3. Patient Unable to Care for Self and Unable to perform ADLs with Generalized Weakness and Ambulatory Dysfunction due to #1 & #2 in the setting of previously known OA; with chronic bilateral hipand back pain on lidocaine patch and as needed oxycodone 3 times daily - PT/OT and Case Management consult and treat on rounds in a.m. will likely be permanent ECF placement given patient's severe deg ree of debility with help appreciated in advance. 4. Recent admission here from November 17, 2024 to November 24, 2024 for treatment of septic shock secondary to pneumonia complicated by acute hypoxia, acute metabolic encephalopathy and AE CHF with elevated NT pro-BNP II of ~22K and elevated troponin of 482 pg/mL attributed to acute cardiac strain from septic shock compounded by NAT and acute transaminitis due to shock liver resulting in severe physical deconditioning with patient discharged to [facility] in [place] for subacute rehabilitation compounding #1 - #3 - Noted. 5. Paroxysmal atrial fibrillation; on rivaroxaban adding to the medical complexity of #1 - #4 - Maintain current treatment with ortho-spine surgeon doubting metastatic lesions suspected on CT. 6. Overweight; with a BMI of 27.8 this admission adding to the burden of disease outlined from #1 -#5 - Weight loss will be recommended. Check TSH. 7. Essential hypertension; on a atenolol and furosemide - Resume current treatment plus give prn IVhydralazine prn for systolic blood pressure > 160 mmHg. 8. History of tobacco abuse; with subsequent COPD on tiotropium bromide daily as needed and every 6as needed albuterol - Stable with no evidence of acute flare at this time. Continue present management. 9. History of depression with anxiety; currently not on treatment - Noted. 10. GERD; on famotidine - Maintain famotidine as previous. 11. History of psoriatic arthritis; on risankizumab - Stable. Restart risankizumab as outpatient. 12. History of shingles - Noted with no evidence of acute flare at this time. 13. History of proximal fracture of the Right humerus - Noted. 14. DVT prophylaxis - Patient already on rivaroxaban for #4 which will be continued. Total time: Approximately (but not less than) 75 minutes. Charges/Coding Visit Charges Inpatient E&M: 96399 Init Hosp L3 12/25/24 0654 Cosigner Signature (if applicable): CC: Dr. Kevin Caballero, DO; SILVIA GUTHRIE~ Signed [facility]05[facility]25 Discharge summary Author Oskar Camargo [facility] Note Date/Time December 24, 2024 8:08pm [facility] Medical Records Department [address] [place] [address] Emergency Department Summary 12/24/24 MR#: [id number] Acct: [id number] Name: LESLI ROSALES Rep #:[id number] : 1940 84 From: Oskar Camargo MD PCP: SILVIA GUTHRIE Status:REG ER Location: ED HPI History of Present Illness Chief Complaint: Back Narrative Narrative: 84-year-old female past medical history of COPD, states she has had back pain for the last 5 months. She relates history that her had fallen twice back in August, approximately 4 to 5 months ago. Initially, they called the squad to help him get up. He fell a second time so she had a neighbor help pickhim up. She had back pain since then. She states when she tried to lift him she felt pain through her hip. At that time, she had gone to [facility] and was able to drive herself, and she had a CT performed which showed that she had no fractures, and she was placed on analgesics. She send since then, its gottena lot worse. She relays history that its progressed to where whenever she movesshe gets sharp pain. She was admitted to the hospital a month ago with sepsis and spent time in the ICU then on the general medical floor. She was then transferred to a [facility] facility[facility]hab closer to her daughter in [facility]. She was recently discharged from there on the , approximately 2 weeks ago. She states she has been having problems with mobility since then. She is unable to get up and use even a bedside commode secondary to pain. [facility] Medical History Anxiety Depression Chronic pain GERD (gastroesophageal reflux disease) On home oxygen therapy Atrial fibrillation Congestive heart failure (CHF) Hypertension Shingles Psoriatic arthritis COPD (chronic obstructive pulmonary disease) A-fib Home Medications ?Medication ?Instructions ?Recorded ?Last Taken ?Type atenolol 25 mg tablet 25 mg PO DAILY 06/26/2102/12 History famotidine 20 mg tablet 20 mg PO DAILY 06/26/2102/12 History folic acid 1 mg tablet 1 mg PO DAILY supplement 02/0812/24/24 History rivaroxaban 20 mg tablet (Xarelto) 20 mg PO DAILY 02/0812/24/24 History cholecalciferol (vitamin D3) 50 50 mcg PO DAILY 12/24/24 History mcg (2,000 unit) capsule furosemide 20 mg tablet 20 mg PO DAILY 11/17/24 Unkn own History albuterol sulfate 90 mcg/actuation 2 puff inhalation Q 6H PRN dyspnea 11/18/24 Unknown History aerosol inhaler tiotropium bromide 18 mcg capsule 1 cap inhalation RUTH LY PRN 11/18/24 12/24/24 History with inhalation device (Spiriva shortness of breath with HandiHaler) lidocaine 5 % topical patch 2 patch topical DAILY #0 e a 11/24/24 Unknown Rx oxycodone-acetaminophen 5 mg-325 1 tab PO TID PRN pain 12/24/24 Unknown History mg tablet risankizumab-rzaa 150 mg/mL 150 mg subcut Q90D 5 12/18/24 History subcutaneous pen injector (Skyrizi) Allergy/AdvReac Type Severity Reaction Status Date / Time No Known Allergies Allergy Verified 12/24/24 15:23 Surgical History History of partial hysterectomy History of bladder suspension procedure History of appendectomy History of cholecystectomy H/O hernia repair Social History household members: none Smoking Status: Former smoker substance use type: does not use ROS ROS ED ROS Narrative Review of systems positive for low back pain radiating to hips. No fevers or chills. Inability to ambulate or transfer without sharp pain in her back. No other symptoms. EXAM Physical Exam Narrative Exam Narrative: Afebrile. Vital signs noted. Nontoxic-appearing. Cardiovascular examination reveals a regular rate and rhythm. Lungs clear to auscultation bilaterally. Abdomen soft and nontender with normoactive bowel sounds. Neuro vastly intact bilateral lower extremities. Able to flex and extend bilateral knees. Palpabledorsalis pedis pulses bilaterally. Const Vital Signs: 12/24/24 15:20 12/24/24 16:41 12/24/24 16:41 Temperature 99 F Temperature Source Oral Pulse Rate 79 Respiratory Rate 13 Blood Pressure 134/83 H Blood Pressure Mean 100 Pulse Ox 93 83 96 Oxygen Delivery Method Room Air Room Air Nasal Cannula Oxygen Flow Rate (L/min) 2 12/24/24 18:00 12/24/24 19:00 Temperature 98.6 F Temperature Source Pulse Rate 57 L 57 L Respiratory Rate 12 12 Blood Pressure 148/78 H 148/78 H Blood Pressure Mean 101 101 Pulse Ox 98 98 Oxygen Delivery Method Oxygen Flow Rate (L/min) MDM MDM MDM Narrative Medical decision making narrative: I reviewed the triage note. She has been defecating in a towel reportedly as well as urinating. Over the last few weeks, her back pain has progressed. She was administered morphine and ondansetron and CT of the lumbar spine obtained. I will obtain other laboratory work and urinalysis as well as I feel that as shehas been unable to transfer or ambulate even to the restroom at home that she will require placement in a [facility] facility. I reviewed the laboratory work and she has slight elevation of her white count of 11.8 which I think is nonspecific, hemoglobin normal at 14.0 with hematocrit 43.2, platelet count normal at 212. CMP shows glucose elevated at 106 with a normal anion gap of 7. BUN of 23 and creatinine low at 0.65. LFTs show an alk phos of 157 which I think is nonspecific. She was administered morphine for heranalgesia and feels mild improvement. She told the RN that oral pills do not work for her back pain. I reviewed the radiology report of the CT of the lumbarspine. There are L2 and L3 compression fractures which may be acute. There is also marked scoliosis and suspected osteolytic areas concerning for possible metastatic disease. Patient states that she saw pain management in the past, and higher up they may have seen fractures, but she states that her back pain is lower in nature. Given her inability to ambulate, and the fact that she was urinating and defecating in a towel for the last few days, social work was contacted and they recommend admission. I discussed the patient with the hospitalist, Dr. Younger. Given the findings of concern for metastatic lesions, he would like me to discuss the patient with orthopedic spine surgery, Dr. Malagon. I do not feel that this is a matter of her not being able to move her legs, it is a matter of pain control as she has not been getting out of bed for the last few days secondary to pain. After discussion with Dr. Rojas, he reviewed the CT of the lumbar spine, and states that she had a CT of the chest abdomen and pelvis approximately 1 month ago where there were no evidence of tumors. He states that the patient may be having lytic lesions from extreme osteoporosis as well, and that she can be admitted and he can be consulted and inpatient MRI performed. I rediscussed thepatient with Dr. Younger for admission. Patient is in stable condition. History & Record Review Discussion w/independent historian: Patient Lab Data Attestation: I reviewed the patient's lab results. Labs: Laboratory Results - last 24 hr 12/24/24 16:20 WBC 11.8 H RBC 4.36 Hgb 14.0 Hct 43.2 MCV 99.1 H MCH 32.1 H MCHC 32.4 RDW Std Deviation 53.0 H RDW Coeff of Mildred 14.4 Plt Count 212 MPV 10.4 Immature Gran % (Auto) 0.500 Neut % (Auto) 69.6 Lymph % (Auto) 20.6 [place] % (Auto) 7.6 Eos % (Auto) 1.2 Baso % (Auto) 0.5 Absolute Neuts (auto) 8.2 H Absolute Lymphs (auto) 2.43 Nucleated RBC % 0 Sodium 141 Potassium 3.8 Chloride 106 Carbon Dioxide 27.7 Anion Gap 7 BUN 23 H Creatinine 0.65 L Estim Creat Clear Calc 44.70 L Est GFR (MDRD) Non-Af 87 BUN/Creatinine Ratio 35.9 H Glucose 106 H Calcium 9.2 Total Bilirubin 0.71 AST 32 ALT 20 Alkaline Phosphatase 157 H Total Protein 5.9 Albumin 3.1 L Globulin 2.9 Albumin/Globulin Ratio 1.1 Radiography Diagnostic Testing: Clinical Impression(s) from Imaging Studies Lumbar Spine CT 12/24/24 15:53 IMPRESSION: 1. Compression abnormalities of the L2 and L3 vertebral bodies may be acute. Marked osteoporosis is seen and there are suspected osteolytic areas throughout the lower thoracic and lumbar spine raising concern for metastatic disease. Consider MRI for further evaluation. 2. Degenerative disc disease. 3. Diffuse annular bulging at L3-4 and L4-5. 4. Other nonacute findings detailed above. Reading Location: [facility] Chest X-Ray 12/24/24 16:25 IMPRESSION: 1. Cardiomegaly without overt pulmonary edema 2. Additional description as above. Reading Location: [id number] Discharge Plan Dx/Rx/DC Orders Clinical Impression: Back pain, Closed compression fracture of lumbosacral spine, Inability to perform activities of daily living, Unable to care for self Disposition Disposition: Acute Care [facility] What to do if you have Problems For any increased pain, shortness of breath, bleeding, nausea or vomiting, chestpain, or any unexpected problems, contact your Primary Care Provider. Call [facility] ([phone]) or report to the closest Emergency Room. Call 911 if necessary. 12/24/241935 <Electronically signed by Oskar Camargo MD> Cosigner Signature (if applicable): CC: SILVIA GUTHRIE ~ Signed ADDENDUM by Dr. Oskar Camargo MD on 12/24/24 at 1938 Additionally, EKG was obtained and interpreted by myself independently as atrialfibrillation is rate controlled at [address] changes. No STEMI. However, there is baseline artifact noted, but given her history, I do favor atrial fibrillation. 12/24/241937<Electronically signed by Oskar Camargo MD> Cosigner Signature (if applicable): cc: SILVIA GUTHRIE ~* Signed ADDENDUM by Dr. Oskar Camargo MD on 12/24/24 at 2007 Portion of the dictation that states marked scoliosis should actually read mild scoliosis/levo curvature. 12/24/242007<Electronically signed by Oskar Camargo MD> Cosigner Signature (if applicable): cc: SILVIA GUTHRIE ~* Signed [facility] Work Phone: [phone] 788-462305-06-2025 Discharge summary [facility] Medical Records Department [address] [place] [address] Emergency Department Summary 12/24/24 MR#: [id number] Acct: [id number] Name: LESLI ROSALES Rep #:[id number] : 1940 84 From: Oskar Camargo MD PCP: SILVIA GUTHRIE Status:REG ER Location: ED HPI History of Present Illness Chief Complaint: Back Narrative Narrative: 84-year-old female past medical history of COPD, states she has had back pain for the last 5 months. She relates history that her had fallen twice back in August, approximately 4 to 5 monthsago. Initially, they called the squad to help him get up. He fell a second time so she had a neighbor help pickhim up. She had back pain since then. She states when she tried to lift him she felt pain through her hip. At that time, she had gone to [facility] and was able to drive herself, and she had a CT performed which showed that she had no fractures, and she was placed on analgesics. She send since then, its gottena lot worse. She relays history that its progressed to where whenever she m henrik gets sharp pain. She was admitted to the hospital a month ago with sepsis and spent time inthe ICU then on the general medical floor. She was then transferred to a mcc facility/rehab closer to her daughter in [facility]. She was recently discharged from there on the , a pproximately 2 weeks ago. She states she has been having problems with mobility since then. She is unable to get up and use even a bedside commode secondary to pain. [facility] Medical History Anxiety Depression Chronic pain GERD (gastroesophageal reflux disease) On home oxygen therapy Atrial fibrillation Congestive heart failure (CHF) Hypertension Shingles Psoriatic arthritis COPD (chronic obstructive pulmonary disease) A-fib Home Medications ?Medication ?Instructions ?Recorded ?Last Taken ?Type atenolol 25 mg tablet 25 mg PO DAILY 06/26/2102/12 History famotidine 20 mg tablet 20 mg PO DAILY 06/26/2102/12 History folic acid 1 mg tablet 1 mg PO DAILY supplement 02/0812/24/24 History rivaroxaban 20 mg tablet (Xarelto) 20 mg PO DAILY 02/0812/24/24 History cholecalciferol (vitamin D3) 50 50 mcg PO DAILY 12/24/24 History mcg (2,000 unit) capsule furosemide 20 mg tablet 20 mg PO DAILY 11/17/24 Unkn own History albuterol sulfate 90 mcg/actuation 2 puff inhalation Q 6H PRN dyspnea 11/18/24 Unknown History aerosol inhaler tiotropium bromide 18 mcg capsule 1 cap inhalation RUTH LY PRN 11/18/24 12/24/24 History with inhalation device (Spiriva shortness of breath with HandiHaler) lidocaine 5 % topical patch 2 patch topical DAILY #0 e a 11/24/24 Unknown Rx oxycodone-acetaminophen 5 mg-325 1 tab PO TID PRN pain 12/24/24 Unknown History mg tablet risankizumab-rzaa 150 mg/mL 150 mg subcut Q90D 5 12/18/24 History subcutaneous pen injector (Skyrizi) Allergy/AdvReac Type Severity Reaction Status Date / Time No Known Allergies Allergy Verified 12/24/24 15:23 Surgical History History of partial hysterectomy History of bladder suspension procedure History of appendectomy History of cholecystectomy H/O hernia repair Social History household members: none Smoking Status: Former smoker substance use type: does not use ROS ROS ED ROS Narrative Review of systems positive for low back pain radiating to hips. No fevers or chills. Inability to ambulate or transfer without sharp pain in her back. No other symptoms. EXAM Physical Exam Narrative Exam Narrative: Afebrile. Vital signs noted. Nontoxic-appearing. Cardiovascular examination reveals a regular rate and rhythm. Lungs clear to auscultation bilaterally. Abdomen soft and nontender with normoactive bowel sounds. Neuro vastly intact bilateral lower extremities. Able to flex and extend bilateral knees. Palpabledorsalis pedis pulses bilaterally. Const Vital Signs: 12/24/24 15:20 12/24/24 16:41 12/24/24 16:41 Temperature 99 F Temperature Source Oral Pulse Rate 79 Respiratory Rate 13 Blood Pressure 134/83 H Blood Pressure Mean 100 Pulse Ox 93 83 96 Oxygen Delivery Method Room Air Room Air Nasal Cannula Oxygen Flow Rate (L/min) 2 12/24/24 18:00 12/24/24 19:00 Temperature 98.6 F Temperature Source Pulse Rate 57 L 57 L Respiratory Rate 12 12 Blood Pressure 148/78 H 148/78 H Blood Pressure Mean 101 101 Pulse Ox 98 98 Oxygen Delivery Method Oxygen Flow Rate (L/min) MDM MDM MDM Narrative Medical decision making narrative: I reviewed the triage note. She has been defecating in a towel reportedly as well as urinating. Over the last few weeks, her back pain has progressed. She was administered morphine and ondansetron and CT of the lumbar spine obtained. I will obtain other laboratory work and urinalysis as well as I feel that as shehas been unable to transfer or ambulate even to the restroom at home that she will require placement in a mcc facility. I reviewed the laboratory work and she has slight elevation of her white count of 11.8 which I think is nonspecific, hemoglobin normal at 14.0 with hematocrit 43.2, platelet count normal at 212. CMP shows glucose elevated at 106 with a normal anion gap of 7. BUN of 23 and creatinine low at 0.65. LFTs show an alk phos of 157 which I think is nonspecific. She was administered morphine for heranalgesia and feels mild improvement. She told the RN that oral pills do not work for her back pain. I reviewed the radiology report of the CT of the lumbarspine. There are L2 and L3 compression fractures which may be acute. There is also marked scoliosis and suspected osteolytic areas concerning for possible metastatic disease. Patient states that she saw pain management in the past, and higher up they may have seen fractures, but she states that her back pain is lower in nature. Given her inability to ambulate, and the fact that she was urinating and defecating in a towel for the last few days, social work was contacted and they recommend admission. I discussed the patient with the hospitalist, Dr. Younger. Given thefindings of concern for metastatic lesions, he would like me to discuss the patient with orthopedicspine surgery, Dr. Malagon. I do not feel that this is a matter of her not being able to move her legs, it is a matter of pain control as she has not been getting out of bed for the last few days secondary to pain. After discussion with Dr. Rojas, he reviewed the CT of the lumbar spine, and states that she had a CT of the chest abdomen and pelvis approximately 1 month ago where there were no evidence of tumors.He states that the patient may be having lytic lesions from extreme osteoporosis as well, and that she can be admitted and he can be consulted and inpatient MRI performed. I rediscussed thepatient with Dr. Younger for admission. Patient is in stable condition. History & Record Review Discussion w/independent historian: Patient Lab Data Attestation: I reviewed the patient's lab results. Labs: Laboratory Results - last 24 hr 12/24/24 16:20 WBC 11.8 H RBC 4.36 Hgb 14.0 Hct 43.2 MCV 99.1 H MCH 32.1 H MCHC 32.4 RDW Std Deviation 53.0 H RDW Coeff of Mildred 14.4 Plt Count 212 MPV 10.4 Immature Gran % (Auto) 0.500 Neut % (Auto) 69.6 Lymph % (Auto) 20.6 [place] % (Auto) 7.6 Eos % (Auto) 1.2 Baso % (Auto) 0.5 Absolute Neuts (auto) 8.2 H Absolute Lymphs (auto) 2.43 Nucleated RBC % 0 Sodium 141 Potassium 3.8 Chloride 106 Carbon Dioxide 27.7 Anion Gap 7 BUN 23 H Creatinine 0.65 L Estim Creat Clear Calc 44.70 L Est GFR (MDRD) Non-Af 87 BUN/Creatinine Ratio 35.9 H Glucose 106 H Calcium 9.2 Total Bilirubin 0.71 AST 32 ALT 20 Alkaline Phosphatase 157 H Total Protein 5.9 Albumin 3.1 L Globulin 2.9 Albumin/Globulin Ratio 1.1 Radiography Diagnostic Testing: Clinical Impression(s) from Imaging Studies Lumbar Spine CT 12/24/24 15:53 IMPRESSION: 1. Compression abnormalities of the L2 and L3 vertebral bodies may be acute. Marked osteoporosis isseen and there are suspected osteolytic areas throughout the lower thoracic and lumbar spine raising concern for metastatic disease. Consider MRI for further evaluation. 2. Degenerative disc disease. 3. Diffuse annular bulging at L3-4 and L4-5. 4. Other nonacute findings detailed above. Reading Location: [facility] Chest X-Ray 12/24/24 16:25 IMPRESSION: 1. Cardiomegaly without overt pulmonary edema 2. Additional description as above. Reading Location: [id number] Discharge Plan Dx/Rx/DC Orders Clinical Impression: Back pain, Closed compression fracture of lumbosacral spine, Inability to perform activities of daily living, Unable to care for self Disposition Disposition: Acute Care Hospital [facility] What to do if you have Problems For any increased pain, shortness of breath, bleeding, nausea or vomiting, chestpain, or any unexpected problems, contact your Primary Care Provider. Call [facility] ([phone]) or report tothe closest Emergency Room. Call 911 if necessary. 12/24/241935 Cosigner Signature (if applicable): CC: SILVIA GUTHRIE ~ Signed ADDENDUM by Dr. Oskar Camargo MD on 12/24/24 at 1938 Additionally, EKG was obtained and interpreted by myself independently as atrialfibrillation is rate controlled at [address] changes. No STEMI. However, there is baseline artifact noted, but given her history, I do favor atrial fibrillation. 12/24/241937 Cosigner Signature (if applicable): cc: SILVIA GUTHRIE ~* Signed ADDENDUM by Dr. Oskar Camargo MD on 12/24/24 at 2008 Portion of the dictation that states marked scoliosis should actually read mild scoliosis/levo curvature. 12/24/242007 Cosigner Signature (if applicable): cc: SILVIA GUTHRIE ~* Signed [facility]05-06[facility]2025 Radiology Diagnostic study note [facility] Imaging Services [address] [place], [place] [id number] Spine Lumbar without Contrast MR#: [id number] Acct: [id number] Name: LESLI ROSALES Rep #: [id number] : 1940 F 84 From: Bertha Balderas MD PCP: SILVIA GUTHRIE Status: REG ER Study:Spine Lumbar without Contrast Date of E xam: 12/24/24 Exam# [id number] Ordering Dr: Oskar Camargo MD PROCEDURE: SPINE LUMBAR WITHOUT CONTRAST 12/24/2024 REASON FOR EXAM: BACK PAIN TECHNIQUE: Lumbar spine CT without contrast. Contiguous axial scans of 2.5 mm slice thicknesses. Sagittal and coronal reconstruction images wereobtained. One or more dose reduction techniques were used (e.g., automated exposure control, adjustment of mAand/or kv according to patient size, use of iterative reconstruction technique). COMPARISON: None. RADIATION DOSE SUMMARY: DLP: 535.28 mGycm FINDINGS: Vertebra: Mild compression abnormality of the inferior endplate of L3. Compression fracture of the L2 vertebra involving the superior and inferior endplates. Loss of height in the range of 50%. Osteoporosis with areas of osteolysis throughout the lower thoracic and lumbar spine. Alignment: Very mild levocurvature. Grade 1-2 anterolisthesis of L5 on S1 by approximately 1.1 cm. Discs: Degenerative disc space narrowing at T11-T12 T12-L1 and L5-S1. Vacuum disc phenomena is seenat L4-L5.. Diffuse annular bulging at L3-L4 and L4-L5. Foramens: Unremarkable. Facets: Mild facet arthropathy at L5-S1. Sacroiliac Joints: Normal. Soft tissues: Vascular: Atherosclerotic calcific disease of the aortoiliac arteries.. Atherosclerotic calcific disease involving the splenic artery. Mild renovascular calcifications on the left. CT/Spine Lumbar without Contrast IMPRESSION: 1. Compression abnormalities of the L2 and L3 vertebral bodies may be acute. Marked osteoporosis isseen and there are suspected osteolytic areas throughout the lower thoracic and lumbar spine raising concern for metastatic disease. Consider MRI for further evaluation. 2. Degenerative disc disease. 3. Diffuse annular bulging at L3-4 and L4-5. 4. Other nonacute findings detailed above. Reading Location: [facility] CC: Dr. Oskar Camargo MD; SILVIA GUTHRIE ~ Head Tennis Professional: Signed [facility]05-06[facility]2025 Radiology Diagnostic study note [facility] Imaging Services [address] [place] [id number] Chest 1 View (Portable) MR#: [id number] Acct: [id number] Name: LESLI ROSALES Rep #: [id number] : 1940 F 84 From: Susan Estrella MD PCP: SILVIA GUTHRIE Status: [facility] ER Study:Chest 1 View (Portable) Date of Exam: 12/24/24 Exam# [id number] Ordering Dr: Oskar Camargo MD PROCEDURE: CHEST 1 VIEW (PORTABLE), 12/24/2024 REASON FOR EXAM: CORONARY ARTERY DISEASE TECHNIQUE: PA and lateral views of the chest were obtained. COMPARISON: 11/17/2024 FINDINGS: Heart: Similar cardiomegaly. Mediastinum: Similar contours including widening of the RIGHT paratracheal stripe. Trace visible atherosclerosis in the arch. Mild central vascular prominence. Lungs/pleura: No focal consolidation. No pleural effusion or visible pneumothorax. Redemonstrated granuloma on the RIGHT. Bones: Reverse geometry RIGHT shoulder arthroplasty. Demineralization. Degenerative changes of the AC joints. Demineralization. Lines and support devices: None. Other: None. RAD/Chest 1 View (Portable) IMPRESSION: 1. Cardiomegaly without overt pulmonary edema 2. Additional description as above. Reading Location: [id number] CC: Dr. Oskar Camargo MD; SILVIA GUTHRIE ~ Head Tennis Professional: Signed [facility]05-06[facility]2025 Discharge summary Author Oskar Camargo [facility] Note Date/Time December 24, 2024 8:08pm [facility] Medical Records Department [address] [place] [address] Emergency Department Summary 12/24/24 MR#: [id number] Acct: [id number] Name: LESLI ROSALES Rep #:[id number] : 1940 84 From: Oskar Camargo MD PCP: SILVIA GUTHRIE Status:REG ER Location: ED HPI History of Present Illness Chief Complaint: Back Narrative Narrative: 84-year-old female past medical history of COPD, states she has had back pain for the last 5 months. She relates history that her had fallen twice back in August, approximately 4 to 5 months ago. Initially, they called the squad to help him get up. He fell a second time so she had a neighbor help pickhim up. She had back pain since then. She states when she tried to lift him she felt pain through her hip. At that time, she had gone to [facility] and was able to drive herself, and she had a CT performed which showed that she had no fractures, and she was placed on analgesics. She send since then, its gottena lot worse. She relays history that its progressed to where whenever she movesshe gets sharp pain. She was admitted to the hospital a month ago with sepsis and spent time in the ICU then on the general medical floor. She was then transferred to a mcc facility/rehab closer to her daughter in [facility]. She was recently discharged from there on the , approximately 2 weeks ago. She states she has been having problems with mobility since then. She is unable to get up and use even a bedside commode secondary to pain. [facility] Medical History Anxiety Depression Chronic pain GERD (gastroesophageal reflux disease) On home oxygen therapy Atrial fibrillation Congestive heart failure (CHF) Hypertension Shingles Psoriatic arthritis COPD (chronic obstructive pulmonary disease) A-fib Home Medications ?Medication ?Instructions ?Recorded ?Last Taken ?Type atenolol 25 mg tablet 25 mg PO DAILY 06/26/2102/12 History famotidine 20 mg tablet 20 mg PO DAILY 06/26/2102/12 History folic acid 1 mg tablet 1 mg PO DAILY supplement 02/0812/24/24 History rivaroxaban 20 mg tablet (Xarelto) 20 mg PO DAILY 02/0812/24/24 History cholecalciferol (vitamin D3) 50 50 mcg PO DAILY 12/24/24 History mcg (2,000 unit) capsule furosemide 20 mg tablet 20 mg PO DAILY 11/17/24 Unkn own History albuterol sulfate 90 mcg/actuation 2 puff inhalation Q 6H PRN dyspnea 11/18/24 Unknown History aerosol inhaler tiotropium bromide 18 mcg capsule 1 cap inhalation RUTH LY PRN 11/18/24 12/24/24 History with inhalation device (Spiriva shortness of breath with HandiHaler) lidocaine 5 % topical patch 2 patch topical DAILY #0 e a 11/24/24 Unknown Rx oxycodone-acetaminophen 5 mg-325 1 tab PO TID PRN pain 12/24/24 Unknown History mg tablet risankizumab-rzaa 150 mg/mL 150 mg subcut Q90D 5 12/18/24 History subcutaneous pen injector (Skyrizi) Allergy/AdvReac Type Severity Reaction Status Date / Time No Known Allergies Allergy Verified 12/24/24 15:23 Surgical History History of partial hysterectomy History of bladder suspension procedure History of appendectomy History of cholecystectomy H/O hernia repair Social History household members: none Smoking Status: Former smoker substance use type: does not use ROS ROS ED ROS Narrative Review of systems positive for low back pain radiating to hips. No fevers or chills. Inability to ambulate or transfer without sharp pain in her back. No other symptoms. EXAM Physical Exam Narrative Exam Narrative: Afebrile. Vital signs noted. Nontoxic-appearing. Cardiovascular examination reveals a regular rate and rhythm. Lungs clear to auscultation bilaterally. Abdomen soft and nontender with normoactive bowel sounds. Neuro vastly intact bilateral lower extremities. Able to flex and extend bilateral knees. Palpabledorsalis pedis pulses bilaterally. Const Vital Signs: 12/24/24 15:20 12/24/24 16:41 12/24/24 16:41 Temperature 99 F Temperature Source Oral Pulse Rate 79 Respiratory Rate 13 Blood Pressure 134/83 H Blood Pressure Mean 100 Pulse Ox 93 83 96 Oxygen Delivery Method Room Air Room Air Nasal Cannula Oxygen Flow Rate (L/min) 2 12/24/24 18:00 12/24/24 19:00 Temperature 98.6 F Temperature Source Pulse Rate 57 L 57 L Respiratory Rate 12 12 Blood Pressure 148/78 H 148/78 H Blood Pressure Mean 101 101 Pulse Ox 98 98 Oxygen Delivery Method Oxygen Flow Rate (L/min) MDM MDM MDM Narrative Medical decision making narrative: I reviewed the triage note. She has been defecating in a towel reportedly as well as urinating. Over the last few weeks, her back pain has progressed. She was administered morphine and ondansetron and CT of the lumbar spine obtained. I will obtain other laboratory work and urinalysis as well as I feel that as shehas been unable to transfer or ambulate even to the restroom at home that she will require placement in a mcc facility. I reviewed the laboratory work and she has slight elevation of her white count of 11.8 which I think is nonspecific, hemoglobin normal at 14.0 with hematocrit 43.2, platelet count normal at 212. CMP shows glucose elevated at 106 with a normal anion gap of 7. BUN of 23 and creatinine low at 0.65. LFTs show an alk phos of 157 which I think is nonspecific. She was administered morphine for heranalgesia and feels mild improvement. She told the RN that oral pills do not work for her back pain. I reviewed the radiology report of the CT of the lumbarspine. There are L2 and L3 compression fractures which may be acute. There is also marked scoliosis and suspected osteolytic areas concerning for possible metastatic disease. Patient states that she saw pain management in the past, and higher up they may have seen fractures, but she states that her back pain is lower in nature. Given her inability to ambulate, and the fact that she was urinating and defecating in a towel for the last few days, social work was contacted and they recommend admission. I discussed the patient with the hospitalist, Dr. Younger. Given the findings of concern for metastatic lesions, he would like me to discuss the patient with orthopedic spine surgery, Dr. Malagon. I do not feel that this is a matter of her not being able to move her legs, it is a matter of pain control as she has not been getting out of bed for the last few days secondary to pain. After discussion with Dr. Rojas, he reviewed the CT of the lumbar spine, and states that she had a CT of the chest abdomen and pelvis approximately 1 month ago where there were no evidence of tumors. He states that the patient may be having lytic lesions from extreme osteoporosis as well, and that she can be admitted and he can be consulted and inpatient MRI performed. I rediscussed thepatient with Dr. Younger for admission. Patient is in stable condition. History & Record Review Discussion w/independent historian: Patient Lab Data Attestation: I reviewed the patient's lab results. Labs: Laboratory Results - last 24 hr 12/24/24 16:20 WBC 11.8 H RBC 4.36 Hgb 14.0 Hct 43.2 MCV 99.1 H MCH 32.1 H MCHC 32.4 RDW Std Deviation 53.0 H RDW Coeff of Mildred 14.4 Plt Count 212 MPV 10.4 Immature Gran % (Auto) 0.500 Neut % (Auto) 69.6 Lymph % (Auto) 20.6 [place] % (Auto) 7.6 Eos % (Auto) 1.2 Baso % (Auto) 0.5 Absolute Neuts (auto) 8.2 H Absolute Lymphs (auto) 2.43 Nucleated RBC % 0 Sodium 141 Potassium 3.8 Chloride 106 Carbon Dioxide 27.7 Anion Gap 7 BUN 23 H Creatinine 0.65 L Estim Creat Clear Calc 44.70 L Est GFR (MDRD) Non-Af 87 BUN/Creatinine Ratio 35.9 H Glucose 106 H Calcium 9.2 Total Bilirubin 0.71 AST 32 ALT 20 Alkaline Phosphatase 157 H Total Protein 5.9 Albumin 3.1 L Globulin 2.9 Albumin/Globulin Ratio 1.1 Radiography Diagnostic Testing: Clinical Impression(s) from Imaging Studies Lumbar Spine CT 12/24/24 15:53 IMPRESSION: 1. Compression abnormalities of the L2 and L3 vertebral bodies may be acute. Marked osteoporosis is seen and there are suspected osteolytic areas throughout the lower thoracic and lumbar spine raising concern for metastatic disease. Consider MRI for further evaluation. 2. Degenerative disc disease. 3. Diffuse annular bulging at L3-4 and L4-5. 4. Other nonacute findings detailed above. Reading Location: [facility] Chest X-Ray 12/24/24 16:25 IMPRESSION: 1. Cardiomegaly without overt pulmonary edema 2. Additional description as above. Reading Location: [id number] Discharge Plan Dx/Rx/DC Orders Clinical Impression: Back pain, Closed compression fracture of lumbosacral spine, Inability to perform activities of daily living, Unable to care for self Disposition Disposition: [facility] What to do if you have Problems For any increased pain, shortness of breath, bleeding, nausea or vomiting, chestpain, or any unexpected problems, contact your Primary Care Provider. Call [facility] ([phone]) or report to the closest Emergency Room. Call 911 if necessary. 12/24/241935 <Electronically signed by Oskar Camargo MD> Cosigner Signature (if applicable): CC: SILVIA GUTHRIE ~ Signed ADDENDUM by Dr. Oskar Camargo MD on 12/24/24 at 193 Additionally, EKG was obtained and interpreted by myself independently as atrialfibrillation is rate controlled at [address] changes. No STEMI. However, there is baseline artifact noted, but given her history, I do favor atrial fibrillation. 12/24/241937<Electronically signed by Oskar Camargo MD> Cosigner Signature (if applicable): cc: SILVIA GUTHRIE ~* Signed ADDENDUM by Dr. Oskar Camargo MD on 12/24/24 at 2007 Portion of the dictation that states marked scoliosis should actually read mild scoliosis/levo curvature. 12/24/242007<Electronically signed by Oskar Camargo MD> Cosigner Signature (if applicable): cc: SILVIA GUTHRIE ~* Signed [facility] Work Phone: 1(190) 103-849404-21-2025 History of Present illness Narrative* Hannah Luciano PA-C - 12/09/2024 8:13 PM EDT Progress Note Facility: [facility] Subjective Chief complaint: Lesli Rosales is a 84 year old female who is an acute skilled patient being seen and evaluated for weakness HPI: HPI Patient seen and examined this morning. Pt in NAD today. Patient has no acute complaints. Continuesworking in therapy. Denies constitutional symptoms. Objective BP 132/76 Pulse 70 Temp 37 C (98.6 F) Resp 17 SpO2 97% Physical Exam Constitutional: General: She is not in acute distress. Cardiovascular: Rate and Rhythm: Normal rate and regular rhythm. Pulmonary: Effort: Pulmonary effort is normal. Breath sounds: Normal breath sounds. Abdominal: General: Bowel sounds are normal. Palpations: Abdomen is soft. Musculoskeletal: Cervical back: Neck supple. Right lower leg: No edema. Left lower leg: No edema. Neurological: Mental Status: She is alert. Motor: Weakness present. Assessment & Plan Problem List Items Addressed This Visit Cardiovascular Chronic atrial fibrillation (HCC) Stable Rate controlled No sob, dizziness, palpitations Continue xarelto Monitor for bleeding/bruising HTN (hypertension), benign Stable Continue lasix, atenolol monitor Other Weakness - Primary PT OT Medication, treatments and labs reviewed Continue medications and treatments as listed in EMR Scribe Attestation IJuanpablo Scribe attest that this documentation has been prepared under the direction andin the presence of Hannah Luciano PA-C. Provider Attestation- Scribe documentation All medical record entries made by the Scribe were at my direction and personally dictated by me. Sadaf reviewed the chart and agree that the record accurately reflects my personal performance of the history, physical exam, discussion and plan. Hannah Luciano PA-C documented in this encounterProtest[facility] Hospital04-15-2025 History of Present illness Narrative* Keerthi Cuba - 12/03/2024 9:47 PM EDT Progress Note Facility: [facility] Subjective Chief complaint:Lesli Rosales is a 84 year old female who is an acute skilled patient being seen and evaluated for weakness HPI: 11/29/2024. Patient is a newer admission, admitted for therapy s/p IPA for PNA, UTI and sepsis. PMH includes HTN, A-fib, COPD, GERD, MARIO, MDD, CHF, compound spinal fracture. Continuous O2 maintained. Sats stable. Tolerating aerosol treatments well. Continues to work with therapy for gait training and bed mobility. Ambulated 10' with 2 WW and CGA. Requires verbal cues for safety and moderate assist with transfers. Nonproductive cough noted. No F/C/N/V/D, SOB. 12/03/24. Patient continues to work with therapy for gait and transfer training. Ambulated 25' with 2 WW. Patient performs well with STS and pivoting with moderate assist and verbal cues for safety. Complains of mid back pain. No radiation into the buttocks or legs. No numbness, tingling. Offers no complaints of F/C/N/V/D, SOB. Objective Vital Signs: BP 132/76 Pulse 70 Temp 36.4 C (97.6 F) Resp 18 SpO2 97% Physical Exam Constitutional: Appearance: Normal appearance. HENT: Head: Normocephalic. Nose: Nose normal. Mouth/Throat: Mouth: Mucous membranes are moist. Eyes: Extraocular Movements: Extraocular movements intact. Cardiovascular: Rate and Rhythm: Normal rate and regular rhythm. Pulses: Normal pulses. Heart sounds: Normal heart sounds. Pulmonary: Effort: Pulmonary effort is normal. Breath sounds: Normal breath sounds. No rhonchi. Abdominal: General: Bowel sounds are normal. Palpations: Abdomen is soft. Musculoskeletal: General: Normal range of motion. Cervical back: Normal range of motion and neck supple. Skin: General: Skin is warm and dry. Capillary Refill: Capillary refill takes 2 to 3 seconds. Neurological: Mental Status: She is alert and oriented to person, place, and time. Psychiatric: Mood and Affect: Mood normal. Behavior: Behavior normal. Assessment & Plan Problem List Items Addressed This Visit Cardiovascular Chronic atrial fibrillation (HCC) - Primary Stable Rate controlled No sob, dizziness, palpitations Continue xarelto Monitor for bleeding/bruising HTN (hypertension), benign Stable Continue lasix, atenolol monitor Pulmonary Chronic obstructive pulmonary disease (HCC) Stable No SOB, wheeze Nonproductive cough Continuous O2 Continue tiotropium, Ipratropium bromide, albuterol Monitor sats Musculoskeletal Chronic midline low back pain without sciatica Complains of severe mid back pain History of compound spinal fracture 2023 Tylenol lidocaine patch Tramadol Therapy Other Weakness Continue therapy Medication, treatments and labs reviewed Continue medications and treatments as listed in EMR Keerthi Cuba APRN.ACCOUNT MANAGER TRAINEE documented in this encounterProtestant Hospital04-11-2025 History of Present illness Narrative* Keerthi Cuba - 11/29/2024 9:13 PM EDT Progress Note Facility: [facility] Subjective Chief complaint:Lesli Rosales is a 84 year old female who is an acute skilled patient being seen and evaluated for weakness HPI: 11/29/2024. Patient is a newer admission, admitted for therapy s/p IPA for PNA, UTI and sepsis. PMH includes HTN, A-fib, COPD, GERD, MARIO, MDD, CHF, compound spinal fracture. Continuous O2 maintained. Sats stable. Tolerating aerosol treatments well. Continues to work with therapy for gait training and bed mobility. Ambulated 10' with 2 WW and CGA. Requires verbal cues for safety and moderate assist with transfers. Nonproductive cough noted. No F/C/N/V/D, SOB. Objective Vital Signs: BP 132/76 Pulse 70 Temp 36.4 C (97.6 F) Resp 18 SpO2 98% Physical Exam Constitutional: Appearance: Normal appearance. HENT: Head: Normocephalic. Nose: Nose normal. Mouth/Throat: Mouth: Mucous membranes are moist. Eyes: Extraocular Movements: Extraocular movements intact. Cardiovascular: Rate and Rhythm: Normal rate and regular rhythm. Pulses: Normal pulses. Heart sounds: Normal heart sounds. Pulmonary: Effort: Pulmonary effort is normal. Breath sounds: Rhonchi present. Abdominal: General: Bowel sounds are normal. Palpations: Abdomen is soft. Musculoskeletal: General: Normal range of motion. Cervical back: Normal range of motion and neck supple. Skin: General: Skin is warm and dry. Capillary Refill: Capillary refill takes 2 to 3 seconds. Neurological: Mental Status: She is alert and oriented to person, place, and time. Psychiatric: Mood and Affect: Mood normal. Behavior: Behavior normal. Assessment & Plan Problem List Items Addressed This Visit Cardiovascular Chronic atrial fibrillation (HCC) Stable Rate controlled No sob, dizziness, palpitations Continue xarelto Monitor for bleeding/bruising HTN (hypertension), benign Stable Continue lasix, atenolol monitor Pulmonary Chronic obstructive pulmonary disease (HCC) - Primary Stable No SOB, wheeze Nonproductive cough Continuous O2 Continue tiotropium, Ipratropium bromide, albuterol Monitor sats Musculoskeletal Chronic midline low back pain without sciatica States being told she has a compound spinal fracture 2023 Tylenol lidocaine patch Therapy Medication, treatments and labs reviewed Continue medications and treatments as listed in EMR Keerthi Cuba APRN.ACCOUNT MANAGER TRAINEE documented in this encounterProtestant Hospital04-10-2025 Telephone encounter Note * Telephone Encounter - Nichelle Powell - 11/28/2024 5:22 PM EDT We have been unable to reach your patient to schedule their testing. Test Name: echo 1st Attempt: 11/28 spoke with patient will call us to schedule [id number] Miscellaneous Notes* Telephone Encounter - Nichelle Powell - 11/28/2024 5:22 PM EDT We have been unable to reach your patient to schedule their testing. Test Name: echo 1st Attempt: 11/28 spoke with patient will call us to schedule documented in this encounterSKindred Hospital [id number] History of Present illness Narrative* Isaias Keith DO - 11/26/2024 4:47 PM EDT History and Physical Facility: [facility] Subjective Chief Complaint: Lesli Rosales is a 84 year oldfemale who is a acute skilled care patient being seen and evaluated for multiple problems. [facility]. HPI: Patient is an 84-year-old female with past medical history of atrial fibrillation, psoriatic arthritis, COPD who presented to the hospital with right hip pain and difficulty ambulating. On presentation, patient was hypotensive and found to have an NAT. She had elevated liver enzymes. BNP was 22,000with a troponin of 482. White blood cell count was 21 and lactic acid was 4.1. Patient was given IVfluids and broad-spectrum antibiotics. She was ultimately started on pressors. She is admitted for septic shock secondary to pneumonia. She improved and was weaned off pressors. Echocardiogram showedan EF of 60% with mild tricuspid valve insufficiency. Patient ultimately improved and was discharged to SNF. PAST MEDICAL HISTORY Diagnosis Date A-fib (HCC) Chronic obstructive pulmonary disease (COPD) (HCC) Hypertension Lung nodules Psoriasis Psoriatic arthritis (HCC) PAST SURGICAL HISTORY Procedure Laterality Date APPENDECTOMY BACK SURGERY HX 1985 CHOLECYSTECTOMY HX COLONOSCOPY SCREENING EGD W/O BRSH SPEC VARICIES INJ REPAIR OF RECTOCELE REPAIR UMBILICAL HERNIA 2009 SHX TOTAL SHOULDER REVERSE Right SLING OPER STRES INCONTINENCE UMBILICAL HERNIA REPAIR 5 OR OLDER 1965 VAGINAL HYSTERECTOMY FAMILY HISTORY Adopted: Yes Social History Tobacco Use Smoking status: Former Current packs/day: 0.00 Average packs/day: 1 pack/day for 17.0 years (17.0 ttl pk-yrs) Types: Cigarettes Start date: 09/22/1958 Quit date: 09/22/1975 Years since quittin.2 Smokeless tobacco: Never Vaping Use Vaping status: Never Used Substance Use Topics Alcohol use: Not Currently Drug use: Never BP 113/72 Pulse 65 Temp 36.4 C (97.6 F) Resp 22 SpO2 98% Objective Physical Exam Constitutional: General: She is not in acute distress. Cardiovascular: Rate and Rhythm: Normal rate and regular rhythm. Pulmonary: Effort: Pulmonary effort is normal. Breath sounds: Normal breath sounds. Abdominal: General: Bowel sounds are normal. Palpations: Abdomen is soft. Musculoskeletal: Cervical back: Neck supple. Right lower leg: No edema. Left lower leg: No edema. Neurological: Mental Status: She is alert. Motor: Weakness present. Assessment & Plan Problem List Items Addressed This Visit Cardiovascular Chronic atrial fibrillation (HCC) - Primary Continue current medications HTN (hypertension), benign Continue current medications Paroxysmal atrial fibrillation (HCC) Continue current medications Pulmonary Chronic obstructive pulmonary disease (HCC) Continue current medications Other Weakness PT OT Hospital records reviewed Medications, treatments, and labs reviewed Continue medications and treatments as listed in EMR Discussed with nursing and therapy Scribe Attestation IJuanpablo Scribe attest that this documentation has been prepared under the direction and in the presence of Isaias Keith DO. Provider Attestation- Scribe documentation All medical record entries made by the Scribe were at my direction and personally dictated by me. Ihave reviewed the chart and agree that the record accurately reflects my personal performance of the history, physical exam, discussion and plan. Isaias Keith DO documented in this encounterProtestant Hospital04-06-2025 Discharge summary Author [facility] Note Date/Time November 24, 2024 8:52 am [facility] Medical Records Department [address] [place] [address] Discharge Summary 11/24/24 0851 MR#: [id number] Acct: [id number] Name: LESLI ROSALES Jose Alberto Rep #:[id number] : 1940 84 From: Kevin Robles MD PCP: SILVIA GUTHRIE Status:ADM IN Location: [place] [id number] Providers Date of Admission: 11/17/24 Date of Discharge: 11/24/24 Primary Care Physician: SILVIA GUTHRIE Consultations 11/17/24 17:50 Consult: Superintendent Power / Pulmonary Medicine Routine Consulting Provider: Intensivists/Pulmonary Med Reason for Consult: septic shock EMERGENT Consult: No MD Notified: No Date Notified: 11/17/24 Time Notified: 16:53 11/17/24 21:56 Consult: Superintendent Power / Pulmonary Medicine Routine Consulting Provider: Intensivists/Pulmonary Med Reason for Consult: septic shock EMERGENT Consult: No MD Notified: Yes Date Notified: 11/17/24 Time Notified: 21:56 Method of Notification: Answering Service 11/18/24 09:04 Consult: Pain Management Routine Consulting Provider: Daniel Hall Reason for Consult: Bilateral hip pain EMERGENT Consult: No Notified: Yes Date Notified: 11/18/24 Time Notified: 09:04 Method of Notification: Verbal 11/19/24 07:17 Consult: Nephrology Routine Consulting Provider: Izabel Arias Reason for Consult: NAT EMERGENT Consult: No MD Notified: Yes Date Notified: 11/19/24 Time Notified: 07:18 Method of Notification: Answering Service Reason For Visit: SEPTIC SHOCK Diagnosis Discharge Diagnosis (1) NAT (acute kidney injury): Status: Acute Code(s): N17.9 - Acute kidney failure, unspecified Plan Patient is an 84-year-old lady who was admitted with progressive generalized weakness and low back pain imaging studies obtained on admission demonstrated bilateral airspace opacities compatible with pneumonitis/pneumonia. An assessment of septic shock secondary to pneumonia made admitted to the intensivecare unit for further management 1. Septic shock ? Secondary to pneumonia Patient presented with progressive generalized weakness was found to be hypotensive with elevated WBC count and elevated lactic acid levels. Patient was admitted to the intensive care unit managed with IV fluid resuscitation, broad-spectrum antibiotic therapy after cultures have been sent patient placed on Levophed and still remains on Levophed as of the morning of 11/18/2024. Response to therapy being monitored with serial lactic acid levels ?11/19/2024; patient was noted to have low urine output did receive fluid bolus ? 11/20/2024 2. Levophed was weaned off 2 days prior and subsequently transferredto the progressive care unit. Patient cultures so far negative to date 2. Abnormal urinalysis ? Patient did not have pyuria however had elevated leukocyte Estrace patient remains on broad-spectrum antibiotic therapy cultures pending -Patient has a Llanos catheter in place with some trace hematuria. Patient urinecultures apparently not sent on admission 3. Acute hypoxia ? Secondary to pneumonia management as discussed above patient was also placed on supplemental oxygen titrated to keep saturation greater than 90 4. Acute metabolic encephalopathy ? Multifactorial including patient septic shock hypoxia in addition patient was found to have hyperammonemia. Given the setting of impaired liver function did order lactulose ? 11/20/2024 patient continues to experience involuntary movement repeated ammonialevels. ? 11/22/2024; patient back to baseline lactulose discontinued 5. Elevated troponin secondary to demand ischemia from septic shock -Patient with elevated troponin of 482 and proBNP of nearly 22,000, suspect thatthis is part of the endorgan damage from her septic shock. Patient being managed with serial troponins ordered 2D echo for EF assessment ? 11/20/2024; 2D echo obtained on 11/17/2024 did show The left ventricular ejectionfraction is 60 %. Normal LV size. The left atrium is severely enlarged. The right atrium is moderately enlarged. Mild (1+) tricuspid valve insufficiency. 6. Acute kidney injury ? Suspected to be secondary to ATN from septic shock. Baseline creatinine 0.7 creatinine on admission 2.45. Patient being managed with IV fluid with monitoring monitoring of response to therapy with serial BMP ; given the persistent impaired kidney function consult was placed to nephrology ?11/20/2024; patient kidney function continues to worsen nephrology on board 7. Acute transaminitis ? Secondary to shock liver. Repeated LFTs in a.m. for follow-up 8. Paroxysmal atrial fibrillation ? Rate controlled with atenolol which is currently being held given patient low blood pressure patient is also on systemic anticoagulation with rivaroxaban did continue 8. Essential hypertension ? Patient antihypertensives held given her presentation 9. Low back pain ? Imaging studies obtained demonstrated Mild compression of the inferior endplates, L3 and L4 may be related to remote trauma. Patient being managed with pain meds as well as muscle relaxant 10. Psoriatic arthritis -On Skyrizi every 3 month self injection 10. GERD -Continue home famotidine 11. DVT prophylaxis ? Already anticoagulated with rivaroxaban 12. Physical deconditioning ? Requested for PT OT eval and social security benefits interviewer to assist with discharge planning ? 11/21/2024; patient agrees on being discharged to [facility] 13. Hypernatremia ? Started patient on 0.45 saline with repeat labs ordered in a.m. ? 11/22/2024; sodium levels down to 142 14. Hypokalemia -Corrected per protocol 15. Oral candidiasis ? Patient started on nystatin swish and swallow Time spent in the patient's overall evaluation,decision-making process, review of diagnostic data, adjustment of management, discussion with other providers, nursing nursing and ancillary staff involved in patient's care documentation, 36minutes Medications at Discharge Home Medications atenolol 25 mg tablet 25 mg PO DAILY 06/26/21 famotidine 20 mg tablet 20 mg PO DAILY 06/26/21 folic acid 1 mg tablet 1 mg PO DAILY supplement 06/26/21 ipratropium bromide 0.02 % solution for inhalation 2 ml inhalation DAILY 06/26/21 rivaroxaban 20 mg tablet (Xarelto) 20 mg PO DAILY 06/26/21 amitriptyline 25 mg tablet 25 mg PO QHS 11/17/24 cholecalciferol (vitamin D3) 50 mcg (2,000 unit) capsule 50 mcg PO DAILY 11/17/24 furosemide 20 mg tablet 20 mg PO DAILY 11/17/24 albuterol sulfate 90 mcg/actuation aerosol inhaler 2 puff inhalation Q6H PRN PRNdyspnea 11/18/24 tiotropium bromide 18 mcg capsule with inhalation device (Spiriva with HandiHaler) 1 cap inhalation PRN shortness of breath 11/18/24 acetaminophen 325 mg tablet 650 mg (2 x 325 mg) PO Q6H PRN PRN Pain 1-10 Or Fever >100.7 #0 tabs 11/24/24 food supplemt, lactose-reduced 0.08 gram-1.5 kcal/mL oral liquid (Ensure Plus High Protein) 120 ml PO 4X/DAY #0 mL 11/24/24 guaifenesin 1,200 mg tablet, extended release 12 hr (Mucus Relief ER) 1,200 mg PO BID #0 tabs 11/24/24 lidocaine 5 % topical patch 2 patch topical DAILY #0 ea 11/24/24 melatonin 3 mg tablet 3 mg PO QHS PRN PRN Insomnia #0 tabs 11/24/24 nystatin 100,000 unit/mL oral suspension 500,000 unit (5 mL) PO 4X/DAY 10 days #200 mL 11/24/24 oxycodone 5 mg tablet 5 mg PO Q6H PRN PRN Pain Score 6-10 3 days #12 tabs 11/24/24 sennosides 8.6 mg-docusate sodium 50 mg tablet (Stimulant Laxative Plus) 2 tab PO BID PRN PRN Constipation #0 tabs 11/24/24 Physical Exam Narrative GENERAL: Much more interactive HEENT: Atraumatic; normocephalic EYES; Anicteric, Normal Conjunctiva NECK; supple, normal thyroid, RESPIRATORY: Diminished to auscultation CARDIOVASCULAR: Regular S1 S2, GI: soft, normoactive bowel sounds, : No Renal angle tenderness; EXTREMITIES: No edema, no clubbing, MUSCULOSKELETAL: no muscle wasting NEURO: Awake; no lateralizing signs. SKIN: No Rash PSYCH; Flat affect Weight / BMI Weight Weight: 76.8 kg Body Mass Index (BMI) 33.0 ABG / Lab / Microbiology Data 11/24/24 03:25 11/24/24 03:25 Laboratory: Laboratory Results - last 24 hr 11/23/24 04:45: Diff Path Review December, Platelet Estimate SLT 11/24/24 03:25: WBC Cancelled 11/24/24 03:25: WBC 14.5 H, Corrected WBC Cancelled, RBC Cancelled 11/24/24 03:25: RBC 4.19 L, Hgb Cancelled 11/24/24 03:25: Hgb 13.8, Hct Cancelled 11/24/24 03:25: Hct 41.9, MCV Cancelled 11/24/24 03:25: MCV 100.0 H, MCH Cancelled 11/24/24 03:25: MCH 32.9 H, MCHC Cancelled 11/24/24 03:25: MCHC 32.9, RDW Std Deviation Cancelled 11/24/24 03:25: RDW Std Deviation 49.5 H, RDW Coeff of Mildred Cancelled 11/24/24 03:25: RDW Coeff of Mildred 13.5, Plt Count Cancelled 11/24/24 03:25: Plt Count 104 L, MPV Cancelled 11/24/24 03:25: MPV 11.2, Immature Gran % (Auto) Cancelled 11/24/24 03:25: Immature Gran % (Auto) 0.600, Neut % (Auto) Cancelled 11/24/24 03:25: Neut % (Auto) 78.3 H, Lymph % (Auto) Cancelled 11/24/24 03:25: Lymph % (Auto) 6.6 L, [place] % (Auto) Cancelled 11/24/24 03:25: [place] % (Auto) 11.3 H, Eos % (Auto) Cancelled 11/24/24 03:25: Eos % (Auto) 3.0, Baso % (Auto) Cancelled 11/24/24 03:25: Baso % (Auto) 0.2, Absolute Neuts (auto) Cancelled 11/24/24 03:25: Absolute Neuts (auto) 11.3 H, Absolute Lymphs (auto) Cancelled 11/24/24 03:25: Absolute Lymphs (auto) 0.96, Total Counted Cancelled, Neutrophils % (Manual) Cancelled, Band Neutrophils % Cancelled, Lymphocytes % (Manual) Cancelled, Monocytes % (Manual) Cancelled, Eosinophils % (Manual) Cancelled, Basophils % (Manual) Cancelled, Metamyelocytes % Cancelled, Myelocytes % Cancelled, Promyelocytes % Cancelled, Blast Cells % Cancelled, Plasma Cell % (Manual) Cancelled, Other Cells % Cancelled, Nucleated RBC % Cancelled 11/24/24 03:25: Nucleated RBC % 0, Nucleated RBCs/100 WBC Cancelled, Differential Comment Cancelled 11/24/24 03:25: Differential Comment SCANNED, Diff Path Review Cancelled 11/24/24 03:25: Diff Path Review May foll, Hypersegmented Neuts Cancelled, Atypical Lymphocytes Cancelled, Reactive Lymphocytes Cancelled, Smudge Cells Cancelled, Toxic Granulation Cancelled, Toxic Vacuolation Cancelled, Dohle Bodies Cancelled, Lew Rods Cancelled, Platelet Estimate Cancelled 11/24/24 03:25: Platelet Estimate SLT DEC, Plt Morphology Comment Cancelled, RBCMorphology Cancelled 11/24/24 03:25: RBC Morphology Cancelled, Polychromasia Cancelled, HypochromasiaCancelled, Basophilic Stippling Cancelled, Anisocytosis Cancelled 11/24/24 03:25: Anisocytosis 1+, Microcytosis Cancelled, Macrocytosis Cancelled 11/24/24 03:25: Macrocytosis 1+, Spherocytes Cancelled, Sickle Cells Cancelled, Target Cells Cancelled, Tear Drop Cells Cancelled 11/24/24 03:25: Tear Drop Cells RARE, Ovalocytes Cancelled 11/24/24 03:25: Ovalocytes 1+, Stomatocytes Cancelled, Gonzalez-[place] Bodies Cancelled, [place] Cells Cancelled, Bite Cells Cancelled, Crenated Cell Cancelled 11/24/24 03:25: Crenated Cell RARE, Acanthocytes (Spur) Cancelled, Rouleaux Cancelled, Schistocytes Cancelled, Sodium 143, Potassium 3.6, Chloride 112 H, Carbon Dioxide 21.8, Anion Gap 9, BUN 53 H, Creatinine 1.89 H, Estim Creat ClearCalc 20.66 L, Est GFR (MDRD) Non-Af 26 L, BUN/Creatinine Ratio 28.1 H, Glucose 82, Calcium 8.2 Microbiology: Microbiology 11/17/24 13:37 Blood Culture (Wb) - Anticubital Left Blood Culture - Final No growth in 5 days. 11/17/24 13:37 Blood Culture (Wb) - Anticubital Right Blood Culture - Final No growth in 5 days. 11/17/24 18:55 Mucosa - Nasopharyngeal Respiratory Panel (PCR) - Final 11/17/24 18:30 Nasal Secretion MRSA (PCR) - Final 11/17/24 18:30 Urine Catheter - Llanos Legionella Antigen - Final 11/17/24 18:30 Urine Catheter - Llanos Streptococcus pneumoniae Antigen (M - Final 11/17/24 13:20 Mucosa - Nose SARS-CoV-2, Influenza & RSV (PCR) - Final D/C Instructions Discharge Diet: 8 Cup Fluid Restriction and 2000 mg Sodium Diet Discharge Activity: Return to Normal Activity Call your doctor if you observe: Fever of 101 or Higher, Shortness of breath, Fainting spells and Chest pain DC O2, CPAP, BIPAP Needs Home O2 Discharge instructions: Yes Type of respiratory needs?: Oxygen (2) Oxygen frequency: Continuous Continuous oxygen liters per minute: 2 DC home with Oxygen: Yes Home O2 MD Review: I have reviewed the oxygen testing, and the patient qualifies for home oxygen equipment and portability. The patient is mobile in the home and the community. Meaningful Use Info Meaningful Use Meaningful Use Diagnoses (Choose all that apply): None applicable Ischemic Stroke Statin Dosing Therapy Reference: STATIN DOSE THERAPY REFERENCE: * Patients > 75 years receive moderate or high dose statin therapy. * Patients 75 years or YOUNGER should receive HIGH intensity statin dose unless contraindicated. You will be required to document reason for non-treatment if statin daily dose does not meet guidelines. HIGH DOSE STATIN THERAPY DAILY Atorvastatin > than or = to 40 mg Rosuvastatin > than or = to 20 mg Amlodipine + Atorvastatin > than or = to 2.5/40 mg Ezetimibe + Simvastatin 10/80 mg Simvastatin 80mg Discharge Plan Admission Admit Date/Time: 11/17/24 16:40 Attending Provider: Kevin Robles Primary Care Provider: SILVIA GUTHRIE Consulting Providers: Elsy Perdomo; Izabel Arias; Daniel Hall Discharge Orders/Prescriptions Prescriptions: New nystatin 100,000 unit/mL Suspension 500,000 unit PO 4X/DAY 10 Days Qty: 200 0RF acetaminophen 325 mg Tablet 650 mg PO Q6H PRN PRN (Reason: Pain 1-10 Or Fever >100.7) Qty: 0 0RF melatonin 3 mg Tablet 3 mg PO QHS PRN PRN (Reason: Insomnia) Qty: 0 0RF lidocaine 5 % Adhesive Patch,Medicated 2 patch topical DAILY Qty: 0 0RF Protocol: *Topical Application Instructions APPLICATION INSTRUCTIONS: Apply to back pain oxycodone 5 mg Tablet 5 mg PO Q6H PRN PRN (Reason: Pain Score 6-10) 3 Days Qty: 12 0RF guaifenesin [Mucus Relief ER] 1,200 mg Tablet Extended Release 12hr 1,200 mg PO BID Qty: 0 0RF Ensure Plus High Protein 0.08 gram-1.5 kcal/mL Liquid 120 ml PO 4X/DAY Qty: 0 0RF sennosides-docusate sodium [Stimulant Laxative Plus] 8.6-50 mg Tablet 2 tab PO BID PRN PRN (Reason: Constipation) Qty: 0 0RF Continued atenolol 25 mg tablet 25 mg PO DAILY famotidine 20 mg tablet 20 mg PO DAILY folic acid 1 mg tablet 1 mg PO DAILY ipratropium bromide 0.02 % solution 2 ml inhalation DAILY Patient Comments: take 2 & 1/2 milliliters BY NEBULIZER by mouth and INTO THE LUNGS... (REFER TO PRESCRIPTION NOTES). Xarelto 20 mg tablet 20 mg PO DAILY amitriptyline 25 mg tablet 25 mg PO QHS furosemide 20 mg tablet 20 mg PO DAILY cholecalciferol (vitamin D3) 50 mcg (2,000 unit) capsule 50 mcg PO DAILY albuterol sulfate 90 mcg/actuation HFA aerosol inhaler 2 puff inhalation Q6H PRN PRN (Reason: dyspnea) tiotropium bromide [Spiriva with HandiHaler] 18 mcg capsule, w/inhalation device 1 cap inhalation PRN (Reason: shortness of breath ) Discontinued oxycodone-acetaminophen 5-325 mg tablet 1 tab PO TID PRN PRN (Reason: pain) Referrals / Follow Up: SILVIA GUTHRIE [Other] SILVIA GUTHRIE [Other] Disposition Disposition (needs filled in before D/C Order can be placed): [facility]ust[facility]ial Facility Charges/Coding Visit Charges Inpatient E&M: 46680 Disch Hosp >30min 11/24/24 0852 <Electronically signed by Kevin Robles MD> Cosigner Signature (if applicable): CC: Dr. Kevin Robles MD; SILVIA GUTHRIE~ [facility]igned [facility] Work Phone: [phone]) 772-745704-06-2025 Discharge summary Author Kevin Robles [facility] Note Date/Time November 24, 2024 8:51 am [facility] Medical Records Department [address] [place] [address] Transfer to [facility] MR#: [id number] Acct: [id number] Name: LESLI ROSALES Rep #:[id number] : 1940 84 From: Kevin Robles MD PCP: SILVIA GUTHRIE Status:ADM IN Certification of patient admission REQUIRED AT TIME OF ADMISSION. I CERTIFY THAT POST-HOSPITAL ECF SERVICES ARE REQUIRED TO BE GIVEN ON AN IN-PATIENT BASIS BECAUSE OF THE ABOVE NAMED PATIENT'S NEED FOR GROUP HOME CARE ON A CONTINUING BASIS FOR THE CONDITION(S) FOR WHICH HE/SHE WAS RECEIVING IN-PATIENT HOSPITAL SERVICES PRIOR TO HIS/HER TRANSFER TO THE [facility]. 11/24/24 0851<Electronically signed by Kevin Robles MD> Diet Diet Order/Speech Therapy: 11/18/24 12:43 Diet: Regular - General Food consistency:: Soft & Bite Sized Liquid Consistency:: Regular/Thin Diet Comments: assist as needed, needs encouragement for po intake Routine Orders/Code Status Code Status: Full Code DC O2, CPAP, BIPAP needs Home O2 Discharge instructions: Yes Type of respiratory needs?: Oxygen (2) Oxygen frequency: Continuous Continuous oxygen liters per minute: 2 Problem/Diagnosis (1) NAT (acute kidney injury): Status: Acute Code(s): N17.9 - Acute kidney failure, unspecified Plan Patient is an 84-year-old lady who was admitted with progressive generalized weakness and low back pain imaging studies obtained on admission demonstrated bilateral airspace opacities compatible with pneumonitis/pneumonia. An assessment of septic shock secondary to pneumonia made admitted to the intensivecare unit for further management 1. Septic shock ? Secondary to pneumonia Patient presented with progressive generalized weakness was found to be hypotensive with elevated WBC count and elevated lactic acid levels. Patient was admitted to the intensive care unit managed with IV fluid resuscitation, broad-spectrum antibiotic therapy after cultures have been sent patient placed on Levophed and still remains on Levophed as of the morning of 11/18/2024. Response to therapy being monitored with serial lactic acid levels ?11/19/2024; patient was noted to have low urine output did receive fluid bolus ? 11/20/2024 2. Levophed was weaned off 2 days prior and subsequently transferredto the progressive care unit. Patient cultures so far negative to date 2. Abnormal urinalysis ? Patient did not have pyuria however had elevated leukocyte Estrace patient remains on broad-spectrum antibiotic therapy cultures pending -Patient has a Llanos catheter in place with some trace hematuria. Patient urinecultures apparently not sent on admission 3. Acute hypoxia ? Secondary to pneumonia management as discussed above patient was also placed on supplemental oxygen titrated to keep saturation greater than 90 4. Acute metabolic encephalopathy ? Multifactorial including patient septic shock hypoxia in addition patient was found to have hyperammonemia. Given the setting of impaired liver function did order lactulose ? 11/20/2024 patient continues to experience involuntary movement repeated ammonialevels. ? 11/22/2024; patient back to baseline lactulose discontinued 5. Elevated troponin secondary to demand ischemia from septic shock -Patient with elevated troponin of 482 and proBNP of nearly 22,000, suspect thatthis is part of the endorgan damage from her septic shock. Patient being managed with serial troponins ordered 2D echo for EF assessment ? 11/20/2024; 2D echo obtained on 11/17/2024 did show The left ventricular ejectionfraction is 60 %. Normal LV size. The left atrium is severely enlarged. The right atrium is moderately enlarged. Mild (1+) tricuspid valve insufficiency. 6. Acute kidney injury ? Suspected to be secondary to ATN from septic shock. Baseline creatinine 0.7 creatinine on admission 2.45. Patient being managed with IV fluid with monitoring monitoring of response to therapy with serial BMP ; given the persistent impaired kidney function consult was placed to nephrology ?11/20/2024; patient kidney function continues to worsen nephrology on board 7. Acute transaminitis ? Secondary to shock liver. Repeated LFTs in a.m. for follow-up 8. Paroxysmal atrial fibrillation ? Rate controlled with atenolol which is currently being held given patient low blood pressure patient is also on systemic anticoagulation with rivaroxaban did continue 8. Essential hypertension ? Patient antihypertensives held given her presentation 9. Low back pain ? Imaging studies obtained demonstrated Mild compression of the inferior endplates, L3 and L4 may be related to remote trauma. Patient being managed with pain meds as well as muscle relaxant 10. Psoriatic arthritis -On Skyrizi every 3 month self injection 10. GERD -Continue home famotidine 11. DVT prophylaxis ? Already anticoagulated with rivaroxaban 12. Physical deconditioning ? Requested for PT OT eval and social security benefits interviewer to assist with discharge planning ? 11/21/2024; patient agrees [facility] being [facility] 13. Hypernatremia ? Started patient on 0.45 saline with repeat labs ordered in a.m. ? 11/22/2024; sodium levels down to 142 14. Hypokalemia -Corrected per protocol 15. Oral candidiasis ? Patient started on nystatin swish and swallow Time spent in the patient's overall evaluation,decision-making process, review of diagnostic data, adjustment of management, discussion with other providers, nursing nursing and ancillary staff involved in patient's care documentation, 36minutes Allergies/Procedures Done in Hospital Allergies No Known Allergies Allergy (Verified 11/17/24 12:43) Type of Care/Length of Stay Estimated LOS: Convalescent Care Less Than 30 days Type of Care Needed: Skilled Rehab Potential: Good Prognosis: Good Additional Orders/Day of Discharge Day of Discharge: 11/24/24 Dietary and Speech Recommendations Dietitian Recommendations/Changes: Continue regular diet per RESPIRATORY THERAPY AIDE consistency/texture recommendations. As PO intake improves, recommend regular, no added salt diet. Will order 120ml EPHP 4x daily with medpass, prefers strawberry. Will monitor weight trends. Discharge Plan Admission Admit Date/Time: 11/17/24 16:40 Attending Provider: Kevin Robles Primary Care Provider: SILVIA GUTHRIE Consulting Providers: Elys Perdomo; Izabel Arias; Daniel Hall Discharge Orders/Prescriptions Prescriptions: New nystatin 100,000 unit/mL Suspension 500,000 unit PO 4X/DAY 10 Days Qty: 200 0RF acetaminophen 325 mg Tablet 650 mg PO Q6H PRN PRN (Reason: Pain 1-10 Or Fever >100.7) Qty: 0 0RF melatonin 3 mg Tablet 3 mg PO QHS PRN PRN (Reason: Insomnia) Qty: 0 0RF lidocaine 5 % Adhesive Patch,Medicated 2 patch topical DAILY Qty: 0 0RF Protocol: *Topical Application Instructions APPLICATION INSTRUCTIONS: Apply to back pain oxycodone 5 mg Tablet 5 mg PO Q6H PRN PRN (Reason: Pain Score 6-10) 3 Days Qty: 12 0RF guaifenesin [Mucus Relief ER] 1,200 mg Tablet Extended Release 12hr 1,200 mg PO BID Qty: 0 0RF Ensure Plus High Protein 0.08 gram-1.5 kcal/mL Liquid 120 ml PO 4X/DAY Qty: 0 0RF sennosides-docusate sodium [Stimulant Laxative Plus] 8.6-50 mg Tablet 2 tab PO BID PRN PRN (Reason: Constipation) Qty: 0 0RF Continued atenolol 25 mg tablet 25 mg PO DAILY famotidine 20 mg tablet 20 mg PO DAILY folic acid 1 mg tablet 1 mg PO DAILY ipratropium bromide 0.02 % solution 2 ml inhalation DAILY Patient Comments: take 2 & 1/2 milliliters BY NEBULIZER by mouth and INTO THE LUNGS... (REFER TO PRESCRIPTION NOTES). Xarelto 20 mg tablet 20 mg PO DAILY amitriptyline 25 mg tablet 25 mg PO QHS furosemide 20 mg tablet 20 mg PO DAILY cholecalciferol (vitamin D3) 50 mcg (2,000 unit) capsule 50 mcg PO DAILY albuterol sulfate 90 mcg/actuation HFA aerosol inhaler 2 puff inhalation Q6H PRN PRN (Reason: dyspnea) tiotropium bromide [Spiriva with HandiHaler] 18 mcg capsule, w/inhalation device 1 cap inhalation PRN (Reason: shortness of breath ) Discontinued oxycodone-acetaminophen 5-325 mg tablet 1 tab PO TID PRN PRN (Reason: pain) Referrals / Follow Up: SILVIA GUTHRIE [Other] SILVIA GUTHRIE [Other] Disposition Disposition (needs filled in before D/C Order can be placed): Custodial Facility 11/24/24 0851 <Electronically signed by Kevin Robles MD> Cosigner Signature (if applicable): CC: Dr. Daniel Hall MD; Dr. Izabel Arias MD; Dr. Elsy Perdomo MD; SILVIA GUTHRIE ~ [facility] Work Phone: [phone]) 334-721904-06-2025 Discharge summary [facility] Medical Records Department [address] [place] [address] Discharge Summary 11/24/24 0851 MR#: [id number] Acct: [id number] Name: LESLI ROSALES Rep #:[id number] : 1940 84 From: Kevin Roblse MD PCP: SILVIA GUTHRIE Status:ADM IN Location: [place] [address] Providers Date of Admission: 11/17/24 Date of Discharge: 11/24/24 Primary Care Physician: SILVIA GUTHRIE Consultations 11/17/24 17:50 Consult: Superintendent Power / Pulmonary Medicine Routine Consulting Provider: Intensivists/Pulmonary Med Reason for Consult: septic shock EMERGENT Consult: No MD Notified: No Date Notified: 11/17/24 Time Notified: 16:53 11/17/24 21:56 Consult: Superintendent Power / Pulmonary Medicine Routine Consulting Provider: Intensivists/Pulmonary Med Reason for Consult: septic shock EMERGENT Consult: No Notified: Yes Date Notified: 11/17/24 Time Notified: 21:56 Method of Notification: Answering Service 11/18/24 09:04 Consult: Pain Management Routine Consulting Provider: Daniel Hall Reason for Consult: Bilateral hip pain EMERGENT Consult: No Notified: Yes Date Notified: 11/18/24 Time Notified: 09:04 Method of Notification: Verbal 11/19/24 07:17 Consult: Nephrology Routine Consulting Provider: Izabel Arias Reason for Consult: NAT EMERGENT Consult: No Notified: Yes Date Notified: 11/19/24 Time Notified: 07:18 Method of Notification: Answering Service Reason For Visit: SEPTIC SHOCK Diagnosis Discharge Diagnosis (1) NAT (acute kidney injury): Status: Acute Code(s): N17.9 - Acute kidney failure, unspecified Plan Patient is an 84-year-old lady who was admitted with progressive generalized weakness and low back pain imaging studies obtained on admission demonstrated bilateral airspace opacities compatible withpneumonitis/pneumonia. An assessment of septic shock secondary to pneumonia made admitted to the intensivecare unit for further management 1. Septic shock ? Secondary to pneumonia Patient presented with progressive generalized weakness was found to be hypotensive with elevated WBC count and elevated lactic acid levels. Patient was admitted to the intensive care unit managed with IV fluid resuscitation, broad- spectrum antibiotic therapy after cultures have been sent patient placed on Levophed and still remains on Levophed as of the morning of 11/18/2024. Response to therapy being monitored with serial lactic acid levels ?11/19/2024; patient was noted to have low urine output did receive fluid bolus ? 11/20/2024 2. Levophed was weaned off 2 days prior and subsequently transferredto the progressive care unit. Patient cultures so far negative to date 2. Abnormal urinalysis ? Patient did not have pyuria however had elevated leukocyte Estrace patient remains on broad-spectrum antibiotic therapy cultures pending -Patient has a Llanos catheter in place with some trace hematuria. Patient urinecultures apparently not sent on admission 3. Acute hypoxia ? Secondary to pneumonia management as discussed above patient was also placed on supplemental oxygen titrated to keep saturation greater than 90 4. Acute metabolic encephalopathy ? Multifactorial including patient septic shock hypoxia in addition patient was found to have hyperammonemia. Given the setting of impaired liver function did order lactulose ? 11/20/2024 patient continues to experience involuntary movement repeated ammonialevels. ? 11/22/2024; patient back to baseline lactulose discontinued 5. Elevated troponin secondary to demand ischemia from septic shock -Patient with elevated troponin of 482 and proBNP of nearly 22,000, suspect thatthis is part of theendorgan damage from her septic shock. Patient being managed with serial troponins ordered 2D echo for EF assessment ? 11/20/2024; 2D echo obtained on 11/17/2024 did show The left ventricular ejectionfraction is 60 %. Normal LV size. The left atrium is severely enlarged. The right atrium is moderately enlarged. Mild (1+) tricuspid valve insufficiency. 6. Acute kidney injury ? Suspected to be secondary to ATN from septic shock. Baseline creatinine 0.7 creatinine on admission 2.45. Patient being managed with IV fluid with monitoring monitoring of response to therapy with serial BMP ; given the persistent impaired kidney function consult was placed to nephrology ?11/20/2024; patient kidney function continues to worsen nephrology on board 7. Acute transaminitis ? Secondary to shock liver. Repeated LFTs in a.m. for follow-up 8. Paroxysmal atrial fibrillation ? Rate controlled with atenolol which is currently being held given patient low blood pressure patient is also on systemic anticoagulation with rivaroxaban did continue 8. Essential hypertension ? Patient antihypertensives held given her presentation 9. Low back pain ? Imaging studies obtained demonstrated Mild compression of the inferior endplates, L3 and L4 may be related to remote trauma. Patient being managed with pain meds as well as muscle relaxant 10. Psoriatic arthritis -On Skyrizi every 3 month self injection 10. GERD -Continue home famotidine 11. DVT prophylaxis ? Already anticoagulated with rivaroxaban 12. Physical deconditioning ? Requested for PT OT eval and social security benefits interviewer to assist with discharge planning ? 11/21/2024; patient agrees [facility] being [facility] 13. Hypernatremia ? Started patient on 0.45 saline with repeat labs ordered in a.m. ? 11/22/2024; sodium levels down to 142 14. Hypokalemia -Corrected per protocol 15. Oral candidiasis ? Patient started on nystatin swish and swallow Time spent in the patient's overall evaluation,decision-making process, review of diagnostic data, adjustment of management, discussion with other providers, nursing nursing and ancillary staff involved in patient's care documentation, 36minutes Medications at Discharge Home Medications atenolol 25 mg tablet 25 mg PO DAILY 06/26/21 famotidine 20 mg tablet 20 mg PO DAILY 06/26/21 folic acid 1 mg tablet 1 mg PO DAILY supplement 06/26/21 ipratropium bromide 0.02 % solution for inhalation 2 ml inhalation DAILY 06/26/21 rivaroxaban 20 mg tablet (Xarelto) 20 mg PO DAILY 06/26/21 amitriptyline 25 mg tablet 25 mg PO QHS 11/17/24 cholecalciferol (vitamin D3) 50 mcg (2,000 unit) capsule 50 mcg PO DAILY 11/17/24 furosemide 20 mg tablet 20 mg PO DAILY 11/17/24 albuterol sulfate 90 mcg/actuation aerosol inhaler 2 puff inhalation Q6H PRN PRNdyspnea 11/18/24 tiotropium bromide 18 mcg capsule with inhalation device (Spiriva with HandiHaler) 1 cap inhalationPRN shortness of breath 11/18/24 acetaminophen 325 mg tablet 650 mg (2 x 325 mg) PO Q6H PRN PRN Pain 1-10 Or Fever >100.7 #0 tabs04/06/25 food supplemt, lactose-reduced 0.08 gram-1.5 kcal/mL oral liquid (Ensure Plus High Protein) 120 ml PO 4X/DAY #0 mL 11/24/24 guaifenesin 1,200 mg tablet, extended release 12 hr (Mucus Relief ER) 1,200 mg PO BID #0 tabs 11/24/24 lidocaine 5 % topical patch 2 patch topical DAILY #0 ea 11/24/24 melatonin 3 mg tablet 3 mg PO QHS PRN PRN Insomnia #0 tabs 11/24/24 nystatin 100,000 unit/mL oral suspension 500,000 unit (5 mL) PO 4X/DAY 10 days #200 mL 11/24/24 oxycodone 5 mg tablet 5 mg PO Q6H PRN PRN Pain Score 6-10 3 days #12 tabs 11/24/24 sennosides 8.6 mg-docusate sodium 50 mg tablet (Stimulant Laxative Plus) 2 tab PO BID PRN PRN Constipation #0 tabs 11/24/24 Physical Exam Narrative GENERAL: Much more interactive HEENT: Atraumatic; normocephalic EYES; Anicteric, Normal Conjunctiva NECK; supple, normal thyroid, RESPIRATORY: Diminished to auscultation CARDIOVASCULAR: Regular S1 S2, GI: soft, normoactive bowel sounds, : No Renal angle tenderness; EXTREMITIES: No edema, no clubbing, MUSCULOSKELETAL: no muscle wasting NEURO: Awake; no lateralizing signs. SKIN: No Rash PSYCH; Flat affect Weight / BMI Weight Weight: 76.8 kg Body Mass Index (BMI) 33.0 ABG / Lab / Microbiology Data 11/24/24 03:25 11/24/24 03:25 Laboratory: Laboratory Results - last 24 hr 11/23/24 04:45: Diff Path Review December rhiannon, Platelet Estimate SLT 11/24/24 03:25: WBC Cancelled 11/24/24 03:25: WBC 14.5 H, Corrected WBC Cancelled, RBC Cancelled 11/24/24 03:25: RBC 4.19 L, Hgb Cancelled 11/24/24 03:25: Hgb 13.8, Hct Cancelled 11/24/24 03:25: Hct 41.9, MCV Cancelled 11/24/24 03:25: MCV 100.0 H, MCH Cancelled 11/24/24 03:25: MCH 32.9 H, MCHC Cancelled 11/24/24 03:25: MCHC 32.9, RDW Std Deviation Cancelled 11/24/24 03:25: RDW Std Deviation 49.5 H, RDW Coeff of Mildred Cancelled 11/24/24 03:25: RDW Coeff of Mildred 13.5, Plt Count Cancelled 11/24/24 03:25: Plt Count 104 L, MPV Cancelled 11/24/24 03:25: MPV 11.2, Immature Gran % (Auto) Cancelled 11/24/24 03:25: Immature Gran % (Auto) 0.600, Neut % (Auto) Cancelled 11/24/24 03:25: Neut % (Auto) 78.3 H, Lymph % (Auto) Cancelled 11/24/24 03:25: Lymph % (Auto) 6.6 L, [place] % (Auto) Cancelled 11/24/24 03:25: [place] % (Auto) 11.3 H, Eos % (Auto) Cancelled 11/24/24 03:25: Eos % (Auto) 3.0, Baso % (Auto) Cancelled 11/24/24 03:25: Baso % (Auto) 0.2, Absolute Neuts (auto) Cancelled 11/24/24 03:25: Absolute Neuts (auto) 11.3 H, Absolute Lymphs (auto) Cancelled 11/24/24 03:25: Absolute Lymphs (auto) 0.96, Total Counted Cancelled, Neutrophils % (Manual) Cancelled, Band Neutrophils % Cancelled, Lymphocytes % (Manual) Cancelled, Monocytes % (Manual) Cancelled,Eosinophils % (Manual) Cancelled, Basophils % (Manual) Cancelled, Metamyelocytes % Cancelled, Myeloc ytes % Cancelled, Promyelocytes % Cancelled, Blast Cells % Cancelled, Plasma Cell % (Manual) Cancelled, Other Cells % Cancelled, Nucleated RBC % Cancelled 11/24/24 03:25: Nucleated RBC % 0, Nucleated RBCs/100 WBC Cancelled, Differential Comment Cancelled 11/24/24 03:25: Differential Comment SCANNED, Diff Path Review Cancelled 11/24/24 03:25: Diff Path Review May foll, Hypersegmented Neuts Cancelled, Atypical Lymphocytes Cancelled, Reactive Lymphocytes Cancelled, Smudge Cells Cancelled, Toxic Granulation Cancelled, Toxic Vacuolation Cancelled, Dohle Bodies Cancelled, Lew Rods Cancelled, Platelet Estimate Cancelled 11/24/24 03:25: Platelet Estimate SLT DEC, Plt Morphology Comment Cancelled, RBCMorphology Cancelled 11/24/24 03:25: RBC Morphology Cancelled, Polychromasia Cancelled, HypochromasiaCancelled, Basophilic Stippling Cancelled, Anisocytosis Cancelled 11/24/24 03:25: Anisocytosis 1+, Microcytosis Cancelled, Macrocytosis Cancelled 11/24/24 03:25: Macrocytosis 1+, Spherocytes Cancelled, Sickle Cells Cancelled, Target Cells Cancelled, Tear Drop Cells Cancelled 11/24/24 03:25: Tear Drop Cells RARE, Ovalocytes Cancelled 11/24/24 03:25: Ovalocytes 1+, Stomatocytes Cancelled, Gonzalez-[place] Bodies Cancelled, [place] Cells Cancelled, Bite Cells Cancelled, Crenated Cell Cancelled 11/24/24 03:25: Crenated Cell RARE, Acanthocytes (Spur) Cancelled, Rouleaux Cancelled, SchistocytesCancelled, Sodium 143, Potassium 3.6, Chloride 112 H, Carbon Dioxide 21.8, Anion Gap 9, BUN 53 H, Creatinine 1.89 H, Estim Creat ClearCalc 20.66 L, Est GFR (MDRD) Non-Af 26 L, BUN/Creatinine Ratio 28.1 H, Glucose 82, Calcium 8.2 Microbiology: Microbiology 11/17/24 13:37 Blood Culture (Wb) - Anticubital Left Blood Culture - Final No growth in 5 days. 11/17/24 13:37 Blood Culture (Wb) - Anticubital Right Blood Culture - Final No growth in 5 days. 11/17/24 18:55 Mucosa - Nasopharyngeal Respiratory Panel (PCR) - Final 11/17/24 18:30 Nasal Secretion MRSA (PCR) - Final 11/17/24 18:30 Urine Catheter - Llanos Legionella Antigen - Final 11/17/24 18:30 Urine Catheter - Llanos Streptococcus pneumoniae Antigen (M - Final 11/17/24 13:20 Mucosa - Nose SARS-CoV-2, Influenza & RSV (PCR) - Final D/C Instructions Discharge Diet: 8 Cup Fluid Restriction and 2000 mg Sodium Diet Discharge Activity: Return to Normal Activity Call your doctor if you observe: Fever of 101 or Higher, Shortness of breath, Fainting spells and Chest pain DC O2, CPAP, BIPAP Needs Home O2 Discharge instructions: Yes Type of respiratory needs?: Oxygen (2) Oxygen frequency: Continuous Continuous oxygen liters per minute: 2 DC home with Oxygen: Yes Home O2 MD Review: I have reviewed the oxygen testing, and the patient qualifies for home oxygen equipment and portability. The patient is mobile in the home and the community. Meaningful Use Info Meaningful Use Meaningful Use Diagnoses (Choose all that apply): None applicable Ischemic Stroke Statin Dosing Therapy Reference: STATIN DOSE THERAPY REFERENCE: * Patients > 75 years receive moderate or high dose statin therapy. * Patients 75 years or YOUNGER should receive HIGH intensity statin dose unless contraindicated. You will be required to document reason for non-treatment if statin daily dose does not meet guidelines. HIGH DOSE STATIN THERAPY DAILY Atorvastatin > than or = to 40 mg Rosuvastatin > than or = to 20 mg Amlodipine + Atorvastatin > than or = to 2.5/40 mg Ezetimibe + Simvastatin 10/80 mg Simvastatin 80mg Discharge Plan Admission Admit Date/Time: 11/17/24 16:40 Attending Provider: Kevin Robles Primary Care Provider: SILVIA GUTHRIE Consulting Providers: Elsy Perdomo; Izabel Arias; Daniel Hall Discharge Orders/Prescriptions Prescriptions: New nystatin 100,000 unit/mL Suspension 500,000 unit PO 4X/DAY 10 Days Qty: 200 0RF acetaminophen 325 mg Tablet 650 mg PO Q6H PRN PRN (Reason: Pain 1-10 Or Fever >100.7) Qty: 0 0RF melatonin 3 mg Tablet 3 mg PO QHS PRN PRN (Reason: Insomnia) Qty: 0 0RF lidocaine 5 % Adhesive Patch,Medicated 2 patch topical DAILY Qty: 0 0RF Protocol: *Topical Application Instructions APPLICATION INSTRUCTIONS: Apply to back pain oxycodone 5 mg Tablet 5 mg PO Q6H PRN PRN (Reason: Pain Score 6-10) 3 Days Qty: 12 0RF guaifenesin [Mucus Relief ER] 1,200 mg Tablet Extended Release 12hr 1,200 mg PO BID Qty: 0 0RF Ensure Plus High Protein 0.08 gram-1.5 kcal/mL Liquid 120 ml PO 4X/DAY Qty: 0 0RF sennosides-docusate sodium [Stimulant Laxative Plus] 8.6-50 mg Tablet 2 tab PO BID PRN PRN (Reason: Constipation) Qty: 0 0RF Continued atenolol 25 mg tablet 25 mg PO DAILY famotidine 20 mg tablet 20 mg PO DAILY folic acid 1 mg tablet 1 mg PO DAILY ipratropium bromide 0.02 % solution 2 ml inhalation DAILY Patient Comments: take 2 & 1/2 milliliters BY NEBULIZER by mouth and INTO THE LUNGS... (REFER TO PRESCRIPTION NOTES). Xarelto 20 mg tablet 20 mg PO DAILY amitriptyline 25 mg tablet 25 mg PO QHS furosemide 20 mg tablet 20 mg PO DAILY cholecalciferol (vitamin D3) 50 mcg (2,000 unit) capsule 50 mcg PO DAILY albuterol sulfate 90 mcg/actuation HFA aerosol inhaler 2 puff inhalation Q6H PRN PRN (Reason: dyspnea) tiotropium bromide [Spiriva with HandiHaler] 18 mcg capsule, w/inhalation device 1 cap inhalation PRN (Reason: shortness of breath ) Discontinued oxycodone-acetaminophen 5-325 mg tablet 1 tab PO TID PRN PRN (Reason: pain) Referrals / Follow Up: SILVIA GUTHRIE [Other] SILVIA GUTHRIE [Other] Disposition Disposition (needs filled in before D/C Order can be placed): [facility]ust[facility]ial Facility Charges/Coding Visit Charges Inpatient E&M: 25393 Disch Hosp >30min 11/24/24 0852 Cosigner Signature (if applicable): CC: Dr. Kevin Robles MD; SILVIA GUTHRIE~ [facility]igned [facility]04[facility]25 Discharge summary [facility] Medical Records Department [address] [place] [address] Transfer to Extended Care MR#: [id number] Acct: [id number] Name: LESLI ROSALES Rep #:[id number] : 1940 84 From: Kevin Robles MD PCP: SILVIA GUTHRIE Status:ADM IN Certification of patient admission REQUIRED AT TIME OF ADMISSION. I CERTIFY THAT POST-HOSPITAL ECF SERVICES ARE REQUIRED TO BE GIVEN ON AN IN-PATIENT BASIS BECAUSE OF THE ABOVE NAMED PATIENT'S NEED FOR GROUP HOME CARE ON A CONTINUING BASIS FOR THE CONDITION(S) FOR WHICH HE/SHE WAS RECEIVING IN-PATIENT HOSPITAL SERVICES PRIOR TO HIS/HER TRANSFER TO THE [facility]. 11/24/24 0851 Diet Diet Order/Speech Therapy: 11/18/24 12:43 Diet: Regular - General Food consistency:: Soft & Bite Sized Liquid Consistency:: Regular/Thin Diet Comments: assist as needed, needs encouragement for po intake Routine Orders/Code Status Code Status: Full Code DC O2, CPAP, BIPAP needs Home O2 Discharge instructions: Yes Type of respiratory needs?: Oxygen (2) Oxygen frequency: Continuous Continuous oxygen liters per minute: 2 Problem/Diagnosis (1) NAT (acute kidney injury): Status: Acute Code(s): N17.9 - Acute kidney failure, unspecified Plan Patient is an 84-year-old lady who was admitted with progressive generalized weakness and low back pain imaging studies obtained on admission demonstrated bilateral airspace opacities compatible withpneumonitis/pneumonia. An assessment of septic shock secondary to pneumonia made admitted to the intensivecare unit for further management 1. Septic shock ? Secondary to pneumonia Patient presented with progressive generalized weakness was found to be hypotensive with elevated WBC count and elevated lactic acid levels. Patient was admitted to the intensive care unit managed with IV fluid resuscitation, broad- spectrum antibiotic therapy after cultures have been sent patient placed on Levophed and still remains on Levophed as of the morning of 11/18/2024. Response to therapy being monitored with serial lactic acid levels ?11/19/2024; patient was noted to have low urine output did receive fluid bolus ? 11/20/2024 2. Levophed was weaned off 2 days prior and subsequently transferredto the progressive care unit. Patient cultures so far negative to date 2. Abnormal urinalysis ? Patient did not have pyuria however had elevated leukocyte Estrace patient remains on broad-spectrum antibiotic therapy cultures pending -Patient has a Llanos catheter in place with some trace hematuria. Patient urinecultures apparently not sent on admission 3. Acute hypoxia ? Secondary to pneumonia management as discussed above patient was also placed on supplemental oxygen titrated to keep saturation greater than 90 4. Acute metabolic encephalopathy ? Multifactorial including patient septic shock hypoxia in addition patient was found to have hyperammonemia. Given the setting of impaired liver function did order lactulose ? 11/20/2024 patient continues to experience involuntary movement repeated ammonialevels. ? 11/22/2024; patient back to baseline lactulose discontinued 5. Elevated troponin secondary to demand ischemia from septic shock -Patient with elevated troponin of 482 and proBNP of nearly 22,000, suspect thatthis is part of theendorgan damage from her septic shock. Patient being managed with serial troponins ordered 2D echo for EF assessment ? 11/20/2024; 2D echo obtained on 11/17/2024 did show The left ventricular ejectionfraction is 60 %. Normal LV size. The left atrium is severely enlarged. The right atrium is moderately enlarged. Mild (1+) tricuspid valve insufficiency. 6. Acute kidney injury ? Suspected to be secondary to ATN from septic shock. Baseline creatinine 0.7 creatinine on admission 2.45. Patient being managed with IV fluid with monitoring monitoring of response to therapy with serial BMP ; given the persistent impaired kidney function consult was placed to nephrology ?11/20/2024; patient kidney function continues to worsen nephrology on board 7. Acute transaminitis ? Secondary to shock liver. Repeated LFTs in a.m. for follow-up 8. Paroxysmal atrial fibrillation ? Rate controlled with atenolol which is currently being held given patient low blood pressure patient is also on systemic anticoagulation with rivaroxaban did continue 8. Essential hypertension ? Patient antihypertensives held given her presentation 9. Low back pain ? Imaging studies obtained demonstrated Mild compression of the inferior endplates, L3 and L4 may be related to remote trauma. Patient being managed with pain meds as well as muscle relaxant 10. Psoriatic arthritis -On Skyrizi every 3 month self injection 10. GERD -Continue home famotidine 11. DVT prophylaxis ? Already anticoagulated with rivaroxaban 12. Physical deconditioning ? Requested for PT OT eval and social security benefits interviewer to assist with discharge planning ? 11/21/2024; patient agrees on being discharged to [facility] 13. Hypernatremia ? Started patient on 0.45 saline with repeat labs ordered in a.m. ? 11/22/2024; sodium levels down to 142 14. Hypokalemia -Corrected per protocol 15. Oral candidiasis ? Patient started on nystatin swish and swallow Time spent in the patient's overall evaluation,decision-making process, review of diagnostic data, adjustment of management, discussion with other providers, nursing nursing and ancillary staff involved in patient's care documentation, 36minutes Allergies/Procedures Done in Hospital Allergies No Known Allergies Allergy (Verified 11/17/24 12:43) Type of Care/Length of Stay Estimated LOS: Convalescent Care Less Than 30 days Type of Care Needed: Skilled Rehab Potential: Good Prognosis: Good Additional Orders/Day of Discharge Day of Discharge: 11/24/24 Dietary and Speech Recommendations Dietitian Recommendations/Changes: Continue regular diet per RESPIRATORY THERAPY AIDE consistency/texture recommendations. As PO intake improves, recommend regular, no added salt diet. Will order 120ml EPHP 4x daily with medpass, prefers strawberry. Will monitor weight trends. Discharge Plan Admission Admit Date/Time: 11/17/24 16:40 Attending Provider: Kevin Robles Primary Care Provider: SILVIA GUTHRIE Consulting Providers: Elsy Perdomo; Izabel Arias; Daniel Hall Discharge Orders/Prescriptions Prescriptions: New nystatin 100,000 unit/mL Suspension 500,000 unit PO 4X/DAY 10 Days Qty: 200 0RF acetaminophen 325 mg Tablet 650 mg PO Q6H PRN PRN (Reason: Pain 1-10 Or Fever >100.7) Qty: 0 0RF melatonin 3 mg Tablet 3 mg PO QHS PRN PRN (Reason: Insomnia) Qty: 0 0RF lidocaine 5 % Adhesive Patch,Medicated 2 patch topical DAILY Qty: 0 0RF Protocol: *Topical Application Instructions APPLICATION INSTRUCTIONS: Apply to back pain oxycodone 5 mg Tablet 5 mg PO Q6H PRN PRN (Reason: Pain Score 6-10) 3 Days Qty: 12 0RF guaifenesin [Mucus Relief ER] 1,200 mg Tablet Extended Release 12hr 1,200 mg PO BID Qty: 0 0RF Ensure Plus High Protein 0.08 gram-1.5 kcal/mL Liquid 120 ml PO 4X/DAY Qty: 0 0RF sennosides-docusate sodium [Stimulant Laxative Plus] 8.6-50 mg Tablet 2 tab PO BID PRN PRN (Reason: Constipation) Qty: 0 0RF Continued atenolol 25 mg tablet 25 mg PO DAILY famotidine 20 mg tablet 20 mg PO DAILY folic acid 1 mg tablet 1 mg PO DAILY ipratropium bromide 0.02 % solution 2 ml inhalation DAILY Patient Comments: take 2 & 1/2 milliliters BY NEBULIZER by mouth and INTO THE LUNGS... (REFER TO PRESCRIPTION NOTES). Xarelto 20 mg tablet 20 mg PO DAILY amitriptyline 25 mg tablet 25 mg PO QHS furosemide 20 mg tablet 20 mg PO DAILY cholecalciferol (vitamin D3) 50 mcg (2,000 unit) capsule 50 mcg PO DAILY albuterol sulfate 90 mcg/actuation HFA aerosol inhaler 2 puff inhalation Q6H PRN PRN (Reason: dyspnea) tiotropium bromide [Spiriva with HandiHaler] 18 mcg capsule, w/inhalation device 1 cap inhalation PRN (Reason: shortness of breath ) Discontinued oxycodone-acetaminophen 5-325 mg tablet 1 tab PO TID PRN PRN (Reason: pain) Referrals / Follow Up: SILVIA GUTHRIE [Other] SILVIA GUTHRIE [Other] Disposition Disposition (needs filled in before D/C Order can be placed): Custodial Facility 11/24/24 0851 Cosigner Signature (if applicable): CC: Dr. Daniel Hall MD; Dr. Izabel Arias MD; Dr. Elsy Perdomo MD; SILVIA GUTHRIE ~ [facility]04[facility]25 [facility]04-05-2025 Progress note Author Ester Claros [facility] Note Date/Time November 23, 2024 2:25 pm [facility] Medical Records Department [address] [place] [address] Progress Note - Nephrology 11/20/24 1450 MR#: [id number] Acct: [id number] Name: LESLI ROSALES Rep #:[id number] : 1940 84 From: Ester blank [employer]IC-C PCP: SILVIA GUTHRIE Status:ADM IN Location: [place] [address] Subjective Subjective Patient resting quietly. Alert and oriented. No overnight events. Granddaughter at bedside. Patient states she does not have an appetite. Objective Data Objective Data Vital Signs: Vital Signs Temp Pulse Resp BP Pulse Ox O2 Del Method O2 Flow Rate 98.0 F 88 18 150/81 H 96 Nasal Cannula 2 11/20/24 10:38 11/20/24 12:07 11/20/24 12:07 11/20/24 10:38 11/20/24 10:38 11/20/24 10:38 11/20/24 10:38 Oxygen Flow Rate (L/min) 2 Oxygen Delivery Method Nasal Cannula Weight: 72.6 kg Body Mass Index (BMI) 31.2 Intake & Output: Intake and Output for Last 24 Hours 11/18/24 11/19/24 11/20/24 23:59 23:59 23:59 Intake Total 4168.08 / 4318.08 2287.21 / 2487.21 1596 / 1596 Output Total 305 / 455 650 / 650 350 / 350 Balance 3863.08 / 3863.08 1637.21 / 1837.21 1246 / 1246 Lab / Micro Data 11/20/24 06:25 11/20/24 06:25 Labs: Laboratory Results - last 24 hr 11/20/24 06:25: WBC 12.1 H, RBC 4.65, Hgb 15.0, Hct 47.4 H, MCV 101.9 H, MCH 32.3 H, MCHC 31.6 L, RDW Std Deviation 53.1 H, RDW Coeff of Mildred 14.0, Plt Count 153, MPV 11.2, Immature Gran % (Auto) 0.700, Neut % (Auto) 87.4 H, Lymph % (Auto) 5.4 L, [place] % (Auto) 6.4, Eos % (Auto) 0.0, Baso % (Auto) 0.1, Absolute Neuts (auto) 10.6 H, Absolute Lymphs (auto) 0.65 L, Nucleated RBC % 0, Sodium 145, Potassium 3.8, Chloride 112 H, Carbon Dioxide 20.6 L, Anion Gap 12, BUN 76 H, Creatinine 2.62 H, Estim Creat Clear Calc 14.47 L, Est GFR (MDRD) Non-Af 18 L, BUN/Creatinine Ratio 28.9 H, Glucose 123 H, Calcium 8.5, Total Bilirubin 0.86,Direct Bilirubin 0.48 H, AST 58 H, ALT 185 H, Alkaline Phosphatase 116 H, Total Protein 6.0, Albumin 3.3 L, Globulin 2.7 Micro: Microbiology 11/17/24 13:37 Blood Culture (Wb) - Anticubital Left Blood Culture - Preliminary No growth in 48 hours. 11/17/24 13:37 Blood Culture (Wb) - Anticubital Right Blood Culture - Preliminary No growth in 48 hours. 11/17/24 18:55 Mucosa - Nasopharyngeal Respiratory Panel (PCR) - Final 11/17/24 18:30 Nasal Secretion MRSA (PCR) - Final 11/17/24 18:30 Urine Catheter - Llanos Legionella Antigen - Final 11/17/24 18:30 Urine Catheter - Llanos Streptococcus pneumoniae Antigen (M - Final 11/17/24 13:20 Mucosa - Nose SARS-CoV-2, Influenza & RSV (PCR) - Final Physical Exam Narrative sleepy but alert and oriented no obvious distress lungs clear abdomen soft, nontender no edema llanos + Assessment & Plan Assessment/Plan (1) NAT (acute kidney injury): PLAN: - NAT, baseline creatinine was normal in 2021, gap in labs until this hospitalization. NAT likely secondary to septic shock, pneumonia, hypotension. Creatinine 2.4 on admission--> SCr 2.2 11/18, today creatinine 2.6 mg/dL. No acute indication for LINE PALLETIZER. Potassium and bicarb acceptable. Patient does have urine output. No edema. Per patient appetite is poor, encouraged oral intake as best as she can. Labs ordered from morning. -Septic shock secondary to pneumonia. Patient had been on Levophed. Off Levophed. Blood pressures were marginally low but slowly improving. Not on anyantihypertensives. On O2 2 L nasal cannula. Assessment and plan reviewed with Dr. Arias. 11/20/24 1456 <Electronically signed by Ester NIELSEN> Cosigner Signature (if applicable): 11/23/24 1425 <Electronically signed by Izabel Arias MD> CC: ~ Signed [facility] Work Phone: 1(217) 913-507004-05-2025 Progress note Author Ester Claros [facility] Note Date/Time November 23, 2024 2:25 pm [facility] Medical Records Department [address] [place] [address] Progress Note - Nephrology 11/22/24 0852 MR#: [id number] Acct: [id number] Name: LESLI ROSALES Rep #:[id number] : 1940 84 From: Ester blank [employer]IC-C PCP: SILVIA GUTHRIE Status:ADM IN [facility] Subjective Subjective Resting in bed, no overnight events. States has been trying to eat and drink more. Objective Data Objective Data Vital Signs: Vital Signs Temp Pulse Resp BP Pulse Ox O2 Del Method O2 Flow Rate 97.3 F L 84 18 132/74 H 95 Nasal Cannula 2 11/22/24 03:00 11/22/24 03:00 11/22/24 03:00 11/22/24 03:00 11/22/24 03:00 11/22/24 03:00 11/22/24 03:00 Oxygen Flow Rate (L/min) 2 Oxygen Delivery Method Nasal Cannula Weight: 75.6 kg Body Mass Index (BMI) 32.5 Intake & Output: Intake and Output for Last 24 Hours 11/20/24 11/21/24 11/22/24 23:59 23:59 23:59 Intake Total 1596 / 1696 1125 / 1125 1125 / 1125 Output Total 350 / 850 975 / 975 150 / 150 Balance 1246 / 846 150 / 150 975 / 975 Lab / Micro Data 11/22/24 05:09 11/22/24 05:09 Labs: Laboratory Results - last 24 hr 11/19/24 04:18: Diff Path Review N/A 11/22/24 05:09: WBC 12.9 H, RBC 4.42, Hgb 14.4, Hct 44.9, MCV 101.6 H, MCH 32.6 H, MCHC 32.1, RDW Std Deviation 51.5 H, RDW Coeff of Mildred 13.5, Plt Count 121 L, MPV 11.3, Immature Gran % (Auto) 0.500, Neut % (Auto) 79.9 H, Lymph % (Auto) 6.4L, [place] % (Auto) 12.1 H, Eos % (Auto) 0.9, Baso % (Auto) 0.2, Absolute Neuts (auto) 10.3 H, Absolute Lymphs (auto) 0.82 L, Nucleated RBC % 0, Platelet Estimate SLT DEC, Sodium 142, Potassium 3.1 L, Chloride 111 H, Carbon Dioxide 20.8 L, Anion Gap 11, BUN 74 H, Creatinine 2.29 H, Estim Creat Clear Calc 16.91 L, Est GFR (MDRD) Non-Af 21 L, BUN/Creatinine Ratio 32.3 H, Glucose 82, Calcium 8.2, Phosphorus 3.4, Magnesium 2.2 Micro: Microbiology 11/17/24 13:37 Blood Culture (Wb) - Anticubital Left Blood Culture - Preliminary No growth in 48 hours. 11/17/24 13:37 Blood Culture (Wb) - Anticubital Right Blood Culture - Preliminary No growth in 48 hours. 11/17/24 18:55 Mucosa - Nasopharyngeal Respiratory Panel (PCR) - Final 11/17/24 18:30 Nasal Secretion MRSA (PCR) - Final 11/17/24 18:30 Urine Catheter - Llanos Legionella Antigen - Final 11/17/24 18:30 Urine Catheter - Llanos Streptococcus pneumoniae Antigen (M - Final 11/17/24 13:20 Mucosa - Nose SARS-CoV-2, Influenza & RSV (PCR) - Final Physical Exam Narrative alert and oriented, sitting in chair no obvious distress lungs clear anteriorly abdomen soft, nontender no edema llanos Assessment & Plan Assessment/Plan (1) NAT (acute kidney injury): PLAN: - NAT, baseline creatinine was normal in 2021, gap in labs until this hospitalization. NAT likely secondary to septic shock, pneumonia, hypotension. Creatinine 2.4 on admission--> SCr 2.2 11/18, creatinine 2.6 mg/dL for a few days, today her creatinine is 2.29. Overall renal function is stable and has improved. Potassium low, receiving replacement again today and bicarb acceptable. Patient does have urine output and is picking up. No edema. Per patient appetite is poor, encouraged oral intake as best as she can, can continue with IV fluids. Labs ordered from morning. -Septic shock secondary to pneumonia. Patient had been on Levophed. Off Levophed. Blood pressures were marginally low but slowly improving. Not on anyantihypertensives. On O2 2 L nasal cannula. Assessment and plan reviewed with Dr. Arias. 11/22/24 4123 <Electronically signed by Ester NIELSEN> Cosigner Signature (if applicable): 11/23/24 9373 <Electronically signed by Izabel Arias MD> CC: ~ Signed [facility] Work Phone: 1(388) 513-104904-05-2025 Progress note Author Izabel Arias [facility] Note Date/Time November 23, 2024 2:25 pm [facility] Medical Records Department [address] [place] [address] Progress Note - Nephrology 11/23/24 1424 MR#: [id number] Acct: [id number] Name: LESLI ROSALES Rep #:[id number] : 1940 84 From: Izabel harvey MD PCP: SILVIA GUTHRIE Status:ADM IN Location: [place] [address] Subjective Subjective no new events Objective Data Objective Data Vital Signs: Vital Signs Temp Pulse Resp BP Pulse Ox O2 Del Method O2 Flow Rate 98.2 F 72 18 163/96 H 95 Nasal Cannula 2 11/23/24 09:00 11/23/24 09:00 11/23/24 09:00 11/23/24 09:00 11/23/24 09:00 11/23/24 09:44 11/23/24 13:54 Oxygen Flow Rate (L/min) 2 Oxygen Delivery Method Nasal Cannula Weight: 76.8 kg Body Mass Index (BMI) 33.0 Intake & Output: Intake and Output for Last 24 Hours 11/21/24 11/22/24 11/23/24 23:59 23:59 23:59 Intake Total 1125 / 1125 3895 / 3895 2792.92 / 2792.92 Output Total 975 / 975 151 / 151 1050 / 1050 Balance 150 / 150 3744 / 3744 1742.92 / 1742.92 Lab / Micro Data 11/23/24 04:45 11/23/24 04:45 Labs: Laboratory Results - last 24 hr 11/23/24 04:45: WBC 13.7 H, RBC 4.47, Hgb 14.6, Hct 44.8, MCV 100.2 H, MCH 32.7 H, MCHC 32.6, RDW Std Deviation 49.8 H, RDW Coeff of Mildred 13.5, Plt Count 114 L, MPV 11.5, Immature Gran % (Auto) 0.500, Neut % (Auto) 79.8 H, Lymph % (Auto) 6.5L, [place] % (Auto) 11.0 H, Eos % (Auto) 2.1, Baso % (Auto) 0.1, Absolute Neuts (auto) 10.9 H, Absolute Lymphs (auto) 0.89, Nucleated RBC % 0, Platelet EstimateSLT DEC, Sodium 141, Potassium 3.1 L, Chloride 110 H, Carbon Dioxide 21.9, AnionGap 10, BUN 63 H, Creatinine 1.99 H, Estim Creat Clear Calc 19.62 L, Est GFR (MDRD) Non-Af 24 L, BUN/Creatinine Ratio 31.5 H, Glucose 89, Calcium 8.2 Micro: Microbiology 11/17/24 13:37 Blood Culture (Wb) - Anticubital Left Blood Culture - Final No growth in 5 days. 11/17/24 13:37 Blood Culture (Wb) - Anticubital Right Blood Culture - Final No growth in 5 days. 11/17/24 18:55 Mucosa - Nasopharyngeal Respiratory Panel (PCR) - Final 11/17/24 18:30 Nasal Secretion MRSA (PCR) - Final 11/17/24 18:30 Urine Catheter - Llanos Legionella Antigen - Final 11/17/24 18:30 Urine Catheter - Llanos Streptococcus pneumoniae Antigen (M - Final 11/17/24 13:20 Mucosa - Nose SARS-CoV-2, Influenza & RSV (PCR) - Final Physical Exam Narrative alert and oriented, sitting in chair no obvious distress lungs clear anteriorly abdomen soft, nontender no edema llanos Assessment & Plan Assessment/Plan (1) NAT (acute kidney injury): PLAN: - NAT, baseline creatinine was normal in 2021, gap in labs until this hospitalization. NAT likely secondary to septic shock, pneumonia, hypotension. Creatinine 2.4 on admission--> SCr 2.2 11/18, creatinine 2.6 mg/dL for a few days, Cr better now 11/23/24 1425 <Electronically signed by Izabel Arias MD> Cosigner Signature (if applicable): CC: ~ Signed [facility] Work Phone: 1(114) 471-569104-05-2025 Progress note [facility] Medical Records Department [address] [place] [address] Progress Note - Nephrology 11/20/24 1453 MR#: [id number] Acct: [id number] Name: LESLI ROSALES Rep #:[id number] : 1940 84 From: Ester blank [employer]PA[employer] MECH[employer]IC-C PCP: SILVIA GUTHRIE Status:ADM IN Location: [place] [address]- 1 Subjective Subjective Patient resting quietly. Alert and oriented. No overnight events. Granddaughter at bedside. Patientstates she does not have an appetite. Objective Data Objective Data Vital Signs: Vital Signs Temp Pulse Resp BP Pulse Ox O2 Del Method O2 Flow Rate 98.0 F 88 18 150/81 H 96 Nasal Cannula 2 11/20/24 10:38 11/20/24 12:07 11/20/24 12:07 11/20/24 10:38 11/20/24 10:38 11/20/24 10:38 11/20/24 10:38 Oxygen Flow Rate (L/min) 2 Oxygen Delivery Method Nasal Cannula Weight: 72.6 kg Body Mass Index (BMI) 31.2 Intake & Output: Intake and Output for Last 24 Hours 11/18/24 11/19/24 11/20/24 23:59 23:59 23:59 Intake Total 4168.08 / 4318.08 2287.21 / 2487.21 1596 / 1596 Output Total 305 / 455 650 / 650 350 / 350 Balance 3863.08 / 3863.08 1637.21 / 1837.21 1246 / 1246 Lab / Micro Data 11/20/24 06:25 11/20/24 06:25 Labs: Laboratory Results - last 24 hr 11/20/24 06:25: WBC 12.1 H, RBC 4.65, Hgb 15.0, Hct 47.4 H, MCV 101.9 H, MCH 32.3 H, MCHC 31.6 L, RDW Std Deviation 53.1 H, RDW Coeff of Mildred 14.0, Plt Count 153, MPV 11.2, Immature Gran % (Auto) 0.700, Neut % (Auto) 87.4 H, Lymph % (Auto) 5.4 L, [place] % (Auto) 6.4, Eos % (Auto) 0.0, Baso % (Auto) 0.1, Absolute Neuts (auto) 10.6 H, Absolute Lymphs (auto) 0.65 L, Nucleated RBC % 0, Sodium 145, Potassium 3.8, Chloride 112 H, Carbon Dioxide 20.6 L, Anion Gap 12, BUN 76 H, Creatinine 2.62 H, Estim Creat Clear Calc 14.47 L, Est GFR (MDRD) Non-Af 18 L, BUN/Creatinine Ratio 28.9 H, Glucose 123 H, Calcium 8.5, Total Bilirubin 0.86,Direct Bilirubin 0.48 H, AST 58 H, ALT 185 H, Alkaline Phosphatase 116H, Total Protein 6.0, Albumin 3.3 L, Globulin 2.7 Micro: Microbiology 11/17/24 13:37 Blood Culture (Wb) - Anticubital Left Blood Culture - Preliminary No growth in 48 hours. 11/17/24 13:37 Blood Culture (Wb) - Anticubital Right Blood Culture - Preliminary No growth in 48 hours. 11/17/24 18:55 Mucosa - Nasopharyngeal Respiratory Panel (PCR) - Final 11/17/24 18:30 Nasal Secretion MRSA (PCR) - Final 11/17/24 18:30 Urine Catheter - Llanos Legionella Antigen - Final 11/17/24 18:30 Urine Catheter - Llanos Streptococcus pneumoniae Antigen (M - Final 11/17/24 13:20 Mucosa - Nose SARS-CoV-2, Influenza & RSV (PCR) - Final Physical Exam Narrative sleepy but alert and oriented no obvious distress lungs clear abdomen soft, nontender no edema llanos + Assessment & Plan Assessment/Plan (1) NAT (acute kidney injury): PLAN: - NAT, baseline creatinine was normal in 2021, gap in labs until this hospitalization. NAT likely secondary to septic shock, pneumonia, hypotension. Creatinine 2.4 on admission--> SCr 2.2 11/18, today creatinine 2.6 mg/dL. No acute indication for LINE PALLETIZER. Potassium and bicarb acceptable. Patient does have urine output. No edema. Per patient appetite is poor, encouraged oral intake as best as she can. Labs ordered from morning. -Septic shock secondary to pneumonia. Patient had been on Levophed. Off Levophed. Blood pressures were marginally low but slowly improving. Not on anyantihypertensives. On O2 2 L nasal cannula. Assessment and plan reviewed with Dr. Arias. 11/20/24 7404 Cosigner Signature (if applicable): 11/23/24 3574 CC: ~ Signed [facility]04-05-2025 Progress note [facility] Medical Records Department [address] [place] [address] Progress Note - Nephrology 11/22/24 0852 MR#: [id number] Acct: [id number] Name: LESLI ROSALES Rep #:[id number] : 1940 84 From: Ester PRESTONC PCP: SILVIA GUTHRIE Status:ADM IN Location: [place] [address] Subjective Subjective Resting in bed, no overnight events. States has been trying to eat and drink more. Objective Data Objective Data Vital Signs: Vital Signs Temp Pulse Resp BP Pulse Ox O2 Del Method O2 Flow Rate 97.3 F L 84 18 132/74 H 95 Nasal Cannula 2 11/22/24 03:00 11/22/24 03:00 11/22/24 03:00 11/22/24 03:00 11/22/24 03:00 11/22/24 03:00 11/22/24 03:00 Oxygen Flow Rate (L/min) 2 Oxygen Delivery Method Nasal Cannula Weight: 75.6 kg Body Mass Index (BMI) 32.5 Intake & Output: Intake and Output for Last 24 Hours 11/20/24 11/21/24 11/22/24 23:59 23:59 23:59 Intake Total 1596 / 1696 1125 / 1125 1125 / 1125 Output Total 350 / 850 975 / 975 150 / 150 Balance 1246 / 846 150 / 150 975 / 975 Lab / Micro Data 11/22/24 05:09 11/22/24 05:09 Labs: Laboratory Results - last 24 hr 11/19/24 04:18: Diff Path Review N/A 11/22/24 05:09: WBC 12.9 H, RBC 4.42, Hgb 14.4, Hct 44.9, MCV 101.6 H, MCH 32.6 H, MCHC 32.1, RDW Std Deviation 51.5 H, RDW Coeff of Mildred 13.5, Plt Count 121 L, MPV 11.3, Immature Gran % (Auto) 0.500,Neut % (Auto) 79.9 H, Lymph % (Auto) 6.4L, [place] % (Auto) 12.1 H, Eos % (Auto) 0.9, Baso % (Auto) 0.2, Absolute Neuts (auto) 10.3 H, Absolute Lymphs (auto) 0.82 L, Nucleated RBC % 0, Platelet EstimateSLT DEC, Sodium 142, Potassium 3.1 L, Chloride 111 H, Carbon Dioxide 20.8 L, Anion Gap 11, BUN 74 H, Creatinine 2.29 H, Estim Creat Clear Calc 16.91 L, Est GFR (MDRD) Non-Af 21 L, BUN/Creatinine Ratio 32.3 H, Glucose 82, Calcium 8.2, Phosphorus 3.4, Magnesium 2.2 Micro: Microbiology 11/17/24 13:37 Blood Culture (Wb) - Anticubital Left Blood Culture - Preliminary No growth in 48 hours. 11/17/24 13:37 Blood Culture (Wb) - Anticubital Right Blood Culture - Preliminary No growth in 48 hours. 11/17/24 18:55 Mucosa - Nasopharyngeal Respiratory Panel (PCR) - Final 11/17/24 18:30 Nasal Secretion MRSA (PCR) - Final 11/17/24 18:30 Urine Catheter - Llanos Legionella Antigen - Final 11/17/24 18:30 Urine Catheter - Llanos Streptococcus pneumoniae Antigen (M - Final 11/17/24 13:20 Mucosa - Nose SARS-CoV-2, Influenza & RSV (PCR) - Final Physical Exam Narrative alert and oriented, sitting in chair no obvious distress lungs clear anteriorly abdomen soft, nontender no edema llanos Assessment & Plan Assessment/Plan (1) NAT (acute kidney injury): PLAN: - NAT, baseline creatinine was normal in 2021, gap in labs until this hospitalization. NAT likely secondary to septic shock, pneumonia, hypotension. Creatinine 2.4 on admission--> SCr 2.2 11/18, creatinine 2.6 mg/dL for a few days, today her creatinine is 2.29. Overall renal function is stable and has improved. Potassium low, receiving replacement again today and bicarb acceptable. Patient does have urine output and is picking up. No edema. Per patient appetite is poor, encouraged oral intake as best as she can, can continue with IV fluids. Labs ordered from morning. -Septic shock secondary to pneumonia. Patient had been on Levophed. Off Levophed. Blood pressures were marginally low but slowly improving. Not on anyantihypertensives. On O2 2 L nasal cannula. Assessment and plan reviewed with Dr. Arias. 11/22/24 0858 Cosigner Signature (if applicable): 11/23/24 1425 CC: ~ Signed [facility]04-05-2025 Progress note [facility] Medical Records Department [address] [place] [address] Progress Note - Nephrology 11/23/24 1424 MR#: [id number] Acct: [id number] Name: LESLI ROSALES Rep #:[id number] : 1940 84 From: Izabel harvey MD PCP: SILVIA GUTHRIE Status:ADM IN Location: [place] [address] Subjective Subjective no new events Objective Data Objective Data Vital Signs: Vital Signs Temp Pulse Resp BP Pulse Ox O2 Del Method O2 Flow Rate 98.2 F 72 18 163/96 H 95 Nasal Cannula 2 11/23/24 09:00 11/23/24 09:00 11/23/24 09:00 11/23/24 09:00 11/23/24 09:00 11/23/24 09:44 11/23/24 13:54 Oxygen Flow Rate (L/min) 2 Oxygen Delivery Method Nasal Cannula Weight: 76.8 kg Body Mass Index (BMI) 33.0 Intake & Output: Intake and Output for Last 24 Hours 11/21/24 11/22/24 11/23/24 23:59 23:59 23:59 Intake Total 1125 / 1125 3895 / 3895 2792.92 / 2792.92 Output Total 975 / 975 151 / 151 1050 / 1050 Balance 150 / 150 3744 / 3744 1742.92 / 1742.92 Lab / Micro Data 11/23/24 04:45 11/23/24 04:45 Labs: Laboratory Results - last 24 hr 11/23/24 04:45: WBC 13.7 H, RBC 4.47, Hgb 14.6, Hct 44.8, MCV 100.2 H, MCH 32.7 H, MCHC 32.6, RDW Std Deviation 49.8 H, RDW Coeff of Mildred 13.5, Plt Count 114 L, MPV 11.5, Immature Gran % (Auto) 0.500,Neut % (Auto) 79.8 H, Lymph % (Auto) 6.5L, [place] % (Auto) 11.0 H, Eos % (Auto) 2.1, Baso % (Auto) 0.1, Absolute Neuts (auto) 10.9 H, Absolute Lymphs (auto) 0.89, Nucleated RBC % 0, Platelet EstimateSLT DEC, Sodium 141, Potassium 3.1 L, Chloride 110 H, Carbon Dioxide 21.9, AnionGap 10, BUN 63 H, Creatinine 1.99 H, Estim Creat Clear Calc 19.62 L, Est GFR (MDRD) Non-Af 24 L, BUN/Creatinine Ratio 31.5H, Glucose 89, Calcium 8.2 Micro: Microbiology 11/17/24 13:37 Blood Culture (Wb) - Anticubital Left Blood Culture - Final No growth in 5 days. 11/17/24 13:37 Blood Culture (Wb) - Anticubital Right Blood Culture - Final No growth in 5 days. 11/17/24 18:55 Mucosa - Nasopharyngeal Respiratory Panel (PCR) - Final 11/17/24 18:30 Nasal Secretion MRSA (PCR) - Final 11/17/24 18:30 Urine Catheter - Llanos Legionella Antigen - Final 11/17/24 18:30 Urine Catheter - Llanos Streptococcus pneumoniae Antigen (M - Final 11/17/24 13:20 Mucosa - Nose SARS-CoV-2, Influenza & RSV (PCR) - Final Physical Exam Narrative alert and oriented, sitting in chair no obvious distress lungs clear anteriorly abdomen soft, nontender no edema llanos Assessment & Plan Assessment/Plan (1) NAT (acute kidney injury): PLAN: - NAT, baseline creatinine was normal in 2021, gap in labs until this hospitalization. NAT likely secondary to septic shock, pneumonia, hypotension. Creatinine 2.4 on admission--> SCr 2.2 11/18, creatinine 2.6 mg/dL for a few days, Cr better now 11/23/24 1425 Cosigner Signature (if applicable): CC: ~ Signed [facility]04-05-2025 Progress note Author [facility] Note Date/Time November 23, 2024 11:1 0am [facility] Medical Records Department [address] [address] Progress Note - Hospitalist 11/23/24 0748 MR#: [id number] Acct: [id number] Name: LESLI ROSALES Rep #:[id number] : 1940 84 From: Kevin Robles MD PCP: SILVIA GUTHRIE Status:ADM IN Location: [place] [address]- 1 Reason for Visit Reason for Visit: Diagnoses Sepsis, unspecified organism (11/17/24) Acute kidney failure, unspecified (11/17/24) Shock, unspecified (11/17/24) Severe sepsis with septic shock (11/17/24) Subjective Subjective Patient seen did complain of oral pain physical exam did reveal presence of oralcandidiasis patient started on nystatin swish and swallow. Objective Data Objective Data Vital Signs: Vital Signs Temp Pulse Resp BP Pulse Ox O2 Del Method O2 Flow Rate 97.3 F L 68 16 159/75 H 97 Nasal Cannula 2 11/23/24 04:05 11/23/24 04:05 11/23/24 04:05 11/23/24 04:05 11/23/24 04:05 11/23/24 04:11 11/23/24 04:05 Oxygen Flow Rate (L/min) 2 Oxygen Delivery Method Nasal Cannula Weight: 76.8 kg Body Mass Index (BMI) 33.0 Intake & Output: Intake and Output for Last 24 Hours 11/21/24 11/22/24 11/23/24 23:59 23:59 23:59 Intake Total 1125 / 1125 3895 / 3895 1262.92 / 1262.92 Output Total 975 / 975 151 / 151 450 / 450 Balance 150 / 150 3744 / 3744 812.92 / 812.92 Lab / Micro Data 11/23/24 04:45 11/23/24 04:45 Labs: Laboratory Results - last 24 hr 11/19/24 04:18: Diff Path Review N/A 11/23/24 04:45: WBC 13.7 H, RBC 4.47, Hgb 14.6, Hct 44.8, MCV 100.2 H, MCH 32.7 H, MCHC 32.6, RDW Std Deviation 49.8 H, RDW Coeff of Mildred 13.5, Plt Count 114 L, MPV 11.5, Immature Gran % (Auto) 0.500, Neut % (Auto) 79.8 H, Lymph % (Auto) 6.5L, [place] % (Auto) 11.0 H, Eos % (Auto) 2.1, Baso % (Auto) 0.1, Absolute Neuts (auto) 10.9 H, Absolute Lymphs (auto) 0.89, Nucleated RBC % 0, Sodium 141, Potassium 3.1 L, Chloride 110 H, Carbon Dioxide 21.9, Anion Gap 10, BUN 63 H, Creatinine 1.99 H, Estim Creat Clear Calc 19.62 L, Est GFR (MDRD) Non-Af 24 L, BUN/Creatinine Ratio 31.5 H, Glucose 89, Calcium 8.2 Micro: Microbiology 11/17/24 13:37 Blood Culture (Wb) - Anticubital Left Blood Culture - Final No growth in 5 days. 11/17/24 13:37 Blood Culture (Wb) - Anticubital Right Blood Culture - Final No growth in 5 days. 11/17/24 18:55 Mucosa - Nasopharyngeal Respiratory Panel (PCR) - Final 11/17/24 18:30 Nasal Secretion MRSA (PCR) - Final 11/17/24 18:30 Urine Catheter - Llanos Legionella Antigen - Final 11/17/24 18:30 Urine Catheter - Llanos Streptococcus pneumoniae Antigen (M - Final 11/17/24 13:20 Mucosa - Nose SARS-CoV-2, Influenza & RSV (PCR) - Final Physical Exam Narrative GENERAL: Much more interactive HEENT: Atraumatic; normocephalic EYES; Anicteric, Normal Conjunctiva NECK; supple, normal thyroid, RESPIRATORY: Diminished to auscultation CARDIOVASCULAR: Regular S1 S2, GI: soft, normoactive bowel sounds, : No Renal angle tenderness; EXTREMITIES: No edema, no clubbing, MUSCULOSKELETAL: no muscle wasting NEURO: Awake; no lateralizing signs. SKIN: No Rash PSYCH; Flat affect Assessment & Plan Assessment/Plan (1) Septic shock: PLAN: Plan Patient is an 84-year-old lady who was admitted with progressive generalized weakness and low back pain imaging studies obtained on admission demonstrated bilateral airspace opacities compatible with pneumonitis/pneumonia. An assessment of septic shock secondary to pneumonia made admitted to the intensivecare unit for further management 1. Septic shock ? Secondary to pneumonia Patient presented with progressive generalized weakness was found to be hypotensive with elevated WBC count and elevated lactic acid levels. Patient was admitted to the intensive care unit managed with IV fluid resuscitation, broad-spectrum antibiotic therapy after cultures have been sent patient placed on Levophed and still remains on Levophed as of the morning of 11/18/2024. Response to therapy being monitored with serial lactic acid levels ?11/19/2024; patient was noted to have low urine output did receive fluid bolus ? 11/20/2024 2. Levophed was weaned off 2 days prior and subsequently transferredto the progressive care unit. Patient cultures so far negative to date 2. Abnormal urinalysis ? Patient did not have pyuria however had elevated leukocyte Estrace patient remains on broad-spectrum antibiotic therapy cultures pending -Patient has a Llanos catheter in place with some trace hematuria. Patient urinecultures apparently not sent on admission 3. Acute hypoxia ? Secondary to pneumonia management as discussed above patient was also placed on supplemental oxygen titrated to keep saturation greater than 90 4. Acute metabolic encephalopathy ? Multifactorial including patient septic shock hypoxia in addition patient was found to have hyperammonemia. Given the setting of impaired liver function did order lactulose ? 11/20/2024 patient continues to experience involuntary movement repeated ammonialevels. ? 11/22/2024; patient back to baseline lactulose discontinued 5. Elevated troponin secondary to demand ischemia from septic shock -Patient with elevated troponin of 482 and proBNP of nearly 22,000, suspect thatthis is part of the endorgan damage from her septic shock. Patient being managed with serial troponins ordered 2D echo for EF assessment ? 11/20/2024; 2D echo obtained on 11/17/2024 did show The left ventricular ejectionfraction is 60 %. Normal LV size. The left atrium is severely enlarged. The right atrium is moderately enlarged. Mild (1+) tricuspid valve insufficiency. 6. Acute kidney injury ? Suspected to be secondary to ATN from septic shock. Baseline creatinine 0.7 creatinine on admission 2.45. Patient being managed with IV fluid with monitoring monitoring of response to therapy with serial BMP ; given the persistent impaired kidney function consult was placed to nephrology ?11/20/2024; patient kidney function continues to worsen nephrology on board 7. Acute transaminitis ? Secondary to shock liver. Repeated LFTs in a.m. for follow-up 8. Paroxysmal atrial fibrillation ? Rate controlled with atenolol which is currently being held given patient low blood pressure patient is also on systemic anticoagulation with rivaroxaban did continue 8. Essential hypertension ? Patient antihypertensives held given her presentation 9. Low back pain ? Imaging studies obtained demonstrated Mild compression of the inferior endplates, L3 and L4 may be related to remote trauma. Patient being managed with pain meds as well as muscle relaxant 10. Psoriatic arthritis -On Skyrizi every 3 month self injection 10. GERD -Continue home famotidine 11. DVT prophylaxis ? Already anticoagulated with rivaroxaban 12. Physical deconditioning ? Requested for PT OT eval and social security benefits interviewer to assist with discharge planning ? 11/21/2024; patient agrees on being [facility] 13. Hypernatremia ? Started patient on 0.45 saline with repeat labs ordered in a.m. ? 11/22/2024; sodium levels down to 142 14. Hypokalemia -Corrected per protocol 15. Oral candidiasis ? Patient started on nystatin swish and swallow Time spent in the patient's overall evaluation,decision-making process, review of diagnostic data, adjustment of management, discussion with other providers, nursing nursing and ancillary staff involved in patient's care documentation, 36minutes Charges/Coding Visit Charges Inpatient E&M: 85500 Subs Hosp L2 11/23/24 1110 <Electronically signed by Kevin Robles MD> Cosigner Signature (if applicable): CC: ~ Signed [facility] Work Phone: 1(974) 212-586604-05-2025 Progress note [facility] Medical Records Department [address] [place] [address] Progress Note - Hospitalist 11/23/24 0748 MR#: [id number] Acct: [id number] Name: LESLI ROSALES Rep #:[id number] : 1940 84 From: Kevin Robles MD PCP: SILVIA GUTHRIE Status:ADM IN Location: [place] [address] Reason for Visit Reason for Visit: Diagnoses Sepsis, unspecified organism (11/17/24) Acute kidney failure, unspecified (11/17/24) Shock, unspecified (11/17/24) Severe sepsis with septic shock (11/17/24) Subjective Subjective Patient seen did complain of oral pain physical exam did reveal presence of oralcandidiasis patientstarted on nystatin swish and swallow. Objective Data Objective Data Vital Signs: Vital Signs Temp Pulse Resp BP Pulse Ox O2 Del Method O2 Flow Rate 97.3 F L 68 16 159/75 H 97 Nasal Cannula 2 11/23/24 04:05 11/23/24 04:05 11/23/24 04:05 11/23/24 04:05 11/23/24 04:05 11/23/24 04:11 11/23/24 04:05 Oxygen Flow Rate (L/min) 2 Oxygen Delivery Method Nasal Cannula Weight: 76.8 kg Body Mass Index (BMI) 33.0 Intake & Output: Intake and Output for Last 24 Hours 11/21/24 11/22/24 11/23/24 23:59 23:59 23:59 Intake Total 1125 / 1125 3895 / 3895 1262.92 / 1262.92 Output Total 975 / 975 151 / 151 450 / 450 Balance 150 / 150 3744 / 3744 812.92 / 812.92 Lab / Micro Data 11/23/24 04:45 11/23/24 04:45 Labs: Laboratory Results - last 24 hr 11/19/24 04:18: Diff Path Review N/A 11/23/24 04:45: WBC 13.7 H, RBC 4.47, Hgb 14.6, Hct 44.8, MCV 100.2 H, MCH 32.7 H, MCHC 32.6, RDW Std Deviation 49.8 H, RDW Coeff of Mildred 13.5, Plt Count 114 L, MPV 11.5, Immature Gran % (Auto) 0.500,Neut % (Auto) 79.8 H, Lymph % (Auto) 6.5L, [place] % (Auto) 11.0 H, Eos % (Auto) 2.1, Baso % (Auto) 0.1, Absolute Neuts (auto) 10.9 H, Absolute Lymphs (auto) 0.89, Nucleated RBC % 0, Sodium 141, Potassium 3.1 L, Chloride 110 H, Carbon Dioxide 21.9, Anion Gap 10, BUN 63 H, Creatinine 1.99 H, Estim Creat Clear Calc 19.62 L, Est GFR (MDRD) Non-Af 24 L, BUN/Creatinine Ratio 31.5 H, Glucose 89, Calcium 8.2 Micro: Microbiology 11/17/24 13:37 Blood Culture (Wb) - Anticubital Left Blood Culture - Final No growth in 5 days. 11/17/24 13:37 Blood Culture (Wb) - Anticubital Right Blood Culture - Final No growth in 5 days. 11/17/24 18:55 Mucosa - Nasopharyngeal Respiratory Panel (PCR) - Final 11/17/24 18:30 Nasal Secretion MRSA (PCR) - Final 11/17/24 18:30 Urine Catheter - Llanos Legionella Antigen - Final 11/17/24 18:30 Urine Catheter - Llanos Streptococcus pneumoniae Antigen (M - Final 11/17/24 13:20 Mucosa - Nose SARS-CoV-2, Influenza & RSV (PCR) - Final Physical Exam Narrative GENERAL: Much more interactive HEENT: Atraumatic; normocephalic EYES; Anicteric, Normal Conjunctiva NECK; supple, normal thyroid, RESPIRATORY: Diminished to auscultation CARDIOVASCULAR: Regular S1 S2, GI: soft, normoactive bowel sounds, : No Renal angle tenderness; EXTREMITIES: No edema, no clubbing, MUSCULOSKELETAL: no muscle wasting NEURO: Awake; no lateralizing signs. SKIN: No Rash PSYCH; Flat affect Assessment & Plan Assessment/Plan (1) Septic shock: PLAN: Plan Patient is an 84-year-old lady who was admitted with progressive generalized weakness and low back pain imaging studies obtained on admission demonstrated bilateral airspace opacities compatible withpneumonitis/pneumonia. An assessment of septic shock secondary to pneumonia made admitted to the intensivecare unit for further management 1. Septic shock ? Secondary to pneumonia Patient presented with progressive generalized weakness was found to be hypotensive with elevated WBC count and elevated lactic acid levels. Patient was admitted to the intensive care unit managed with IV fluid resuscitation, broad- spectrum antibiotic therapy after cultures have been sent patient placed on Levophed and still remains on Levophed as of the morning of 11/18/2024. Response to therapy being monitored with serial lactic acid levels ?11/19/2024; patient was noted to have low urine output did receive fluid bolus ? 11/20/2024 2. Levophed was weaned off 2 days prior and subsequently transferredto the progressive care unit. Patient cultures so far negative to date 2. Abnormal urinalysis ? Patient did not have pyuria however had elevated leukocyte Estrace patient remains on broad-spectrum antibiotic therapy cultures pending -Patient has a Llanos catheter in place with some trace hematuria. Patient urinecultures apparently not sent on admission 3. Acute hypoxia ? Secondary to pneumonia management as discussed above patient was also placed on supplemental oxygen titrated to keep saturation greater than 90 4. Acute metabolic encephalopathy ? Multifactorial including patient septic shock hypoxia in addition patient was found to have hyperammonemia. Given the setting of impaired liver function did order lactulose ? 11/20/2024 patient continues to experience involuntary movement repeated ammonialevels. ? 11/22/2024; patient back to baseline lactulose discontinued 5. Elevated troponin secondary to demand ischemia from septic shock -Patient with elevated troponin of 482 and proBNP of nearly 22,000, suspect thatthis is part of theendorgan damage from her septic shock. Patient being managed with serial troponins ordered 2D echo for EF assessment ? 11/20/2024; 2D echo obtained on 11/17/2024 did show The left ventricular ejectionfraction is 60 %. Normal LV size. The left atrium is severely enlarged. The right atrium is moderately enlarged. Mild (1+) tricuspid valve insufficiency. 6. Acute kidney injury ? Suspected to be secondary to ATN from septic shock. Baseline creatinine 0.7 creatinine on admission 2.45. Patient being managed with IV fluid with monitoring monitoring of response to therapy with serial BMP ; given the persistent impaired kidney function consult was placed to nephrology ?11/20/2024; patient kidney function continues to worsen nephrology on board 7. Acute transaminitis ? Secondary to shock liver. Repeated LFTs in a.m. for follow-up 8. Paroxysmal atrial fibrillation ? Rate controlled with atenolol which is currently being held given patient low blood pressure patient is also on systemic anticoagulation with rivaroxaban did continue 8. Essential hypertension ? Patient antihypertensives held given her presentation 9. Low back pain ? Imaging studies obtained demonstrated Mild compression of the inferior endplates, L3 and L4 may be related to remote trauma. Patient being managed with pain meds as well as muscle relaxant 10. Psoriatic arthritis -On Skyrizi every 3 month self injection 10. GERD -Continue home famotidine 11. DVT prophylaxis ? Already anticoagulated with rivaroxaban 12. Physical deconditioning ? Requested for PT OT eval and social security benefits interviewer to assist with discharge planning ? 11/21/2024; patient agrees [facility] being [facility] 13. Hypernatremia ? Started patient on 0.45 saline with repeat labs ordered in a.m. ? 11/22/2024; sodium levels down to 142 14. Hypokalemia -Corrected per protocol 15. Oral candidiasis ? Patient started on nystatin swish and swallow Time spent in the patient's overall evaluation,decision-making process, review of diagnostic data, adjustment of management, discussion with other providers, nursing nursing and ancillary staff involved in patient's care documentation, 36minutes Charges/Coding Visit Charges Inpatient E&M: 86983 Subs Hosp L2 11/23/24 1110 Cosigner Signature (if applicable): CC: ~ [facility]igned [facility]04[facility]25 Progress note Author [facility] Note Date/Time November 22, 2024 9:07 am [facility] Medical Records Department [address] [place] [address] Progress Note - Hospitalist 11/22/24 09 MR#: [id number] Acct: [id number] Name: LESLI ROSALES Rep #:[id number] : 1940 84 From: Kevin Robles MD PCP: SILVIA GUTHRIE Status:ADM IN Location: [place] [address] Reason for Visit Reason for Visit: Diagnoses Sepsis, unspecified organism (11/17/24) Acute kidney failure, unspecified (11/17/24) Shock, unspecified (11/17/24) Severe sepsis with septic shock (11/17/24) Subjective Subjective Patient seen much more energetic compared to previous day. Patient creatinine down to 2.9, potassium however is 3.1. Patient was on lactulose discontinued following improvement in her mentation and tremors Objective Data Objective Data Vital Signs: Vital Signs Temp Pulse Resp BP Pulse Ox O2 Del Method O2 Flow Rate 97.3 F L 84 18 132/74 H 95 Nasal Cannula 2 11/22/24 03:00 11/22/24 03:00 11/22/24 03:00 11/22/24 03:00 11/22/24 03:00 11/22/24 08:56 11/22/24 08:56 Oxygen Flow Rate (L/min) 2 Oxygen Delivery Method Nasal Cannula Weight: 75.6 kg Body Mass Index (BMI) 32.5 Intake & Output: Intake and Output for Last 24 Hours 11/20/24 11/21/24 11/22/24 23:59 23:59 23:59 Intake Total 1596 / 1696 1125 / 1125 1125 / 1125 Output Total 350 / 850 975 / 975 150 / 150 Balance 1246 / 846 150 / 150 975 / 975 Lab / Micro Data 11/22/24 05:09 11/22/24 05:09 Labs: Laboratory Results - last 24 hr 11/19/24 04:18: Diff Path Review N/A 11/22/24 05:09: WBC 12.9 H, RBC 4.42, Hgb 14.4, Hct 44.9, MCV 101.6 H, MCH 32.6 H, MCHC 32.1, RDW Std Deviation 51.5 H, RDW Coeff of Mildred 13.5, Plt Count 121 L, MPV 11.3, Immature Gran % (Auto) 0.500, Neut % (Auto) 79.9 H, Lymph % (Auto) 6.4L, [place] % (Auto) 12.1 H, Eos % (Auto) 0.9, Baso % (Auto) 0.2, Absolute Neuts (auto) 10.3 H, Absolute Lymphs (auto) 0.82 L, Nucleated RBC % 0, Platelet Estimate SLT DEC, Sodium 142, Potassium 3.1 L, Chloride 111 H, Carbon Dioxide 20.8 L, Anion Gap 11, BUN 74 H, Creatinine 2.29 H, Estim Creat Clear Calc 16.91 L, Est GFR (MDRD) Non-Af 21 L, BUN/Creatinine Ratio 32.3 H, Glucose 82, Calcium 8.2, Phosphorus 3.4, Magnesium 2.2 Micro: Microbiology 11/17/24 13:37 Blood Culture (Wb) - Anticubital Left Blood Culture - Preliminary No growth in 48 hours. 11/17/24 13:37 Blood Culture (Wb) - Anticubital Right Blood Culture - Preliminary No growth in 48 hours. 11/17/24 18:55 Mucosa - Nasopharyngeal Respiratory Panel (PCR) - Final 11/17/24 18:30 Nasal Secretion MRSA (PCR) - Final 11/17/24 18:30 Urine Catheter - Llanos Legionella Antigen - Final 11/17/24 18:30 Urine Catheter - Llanos Streptococcus pneumoniae Antigen (M - Final 11/17/24 13:20 Mucosa - Nose SARS-CoV-2, Influenza & RSV (PCR) - Final Physical Exam Narrative GENERAL: Much more interactive HEENT: Atraumatic; normocephalic EYES; Anicteric, Normal Conjunctiva NECK; supple, normal thyroid, RESPIRATORY: Diminished to auscultation CARDIOVASCULAR: Regular S1 S2, GI: soft, normoactive bowel sounds, : No Renal angle tenderness; EXTREMITIES: No edema, no clubbing, MUSCULOSKELETAL: no muscle wasting NEURO: Awake; no lateralizing signs. SKIN: No Rash PSYCH; Flat affect Assessment & Plan Assessment/Plan (1) Septic shock: PLAN: Plan Patient is an 84-year-old lady who was admitted with progressive generalized weakness and low back pain imaging studies obtained on admission demonstrated bilateral airspace opacities compatible with pneumonitis/pneumonia. An assessment of septic shock secondary to pneumonia made admitted to the intensivecare unit for further management 1. Septic shock ? Secondary to pneumonia Patient presented with progressive generalized weakness was found to be hypotensive with elevated WBC count and elevated lactic acid levels. Patient was admitted to the intensive care unit managed with IV fluid resuscitation, broad-spectrum antibiotic therapy after cultures have been sent patient placed on Levophed and still remains on Levophed as of the morning of 11/18/2024. Response to therapy being monitored with serial lactic acid levels ?11/19/2024; patient was noted to have low urine output did receive fluid bolus ? 11/20/2024 2. Levophed was weaned off 2 days prior and subsequently transferredto the progressive care unit. Patient cultures so far negative to date 2. Abnormal urinalysis ? Patient did not have pyuria however had elevated leukocyte Estrace patient remains on broad-spectrum antibiotic therapy cultures pending -Patient has a Llanos catheter in place with some trace hematuria. Patient urinecultures apparently not sent on admission 3. Acute hypoxia ? Secondary to pneumonia management as discussed above patient was also placed on supplemental oxygen titrated to keep saturation greater than 90 4. Acute metabolic encephalopathy ? Multifactorial including patient septic shock hypoxia in addition patient was found to have hyperammonemia. Given the setting of impaired liver function did order lactulose ? 11/20/2024 patient continues to experience involuntary movement repeated ammonialevels. ? 11/22/2024; patient back to baseline lactulose discontinued 5. Elevated troponin secondary to demand ischemia from septic shock -Patient with elevated troponin of 482 and proBNP of nearly 22,000, suspect thatthis is part of the endorgan damage from her septic shock. Patient being managed with serial troponins ordered 2D echo for EF assessment ? 11/20/2024; 2D echo obtained on 11/17/2024 did show The left ventricular ejectionfraction is 60 %. Normal LV size. The left atrium is severely enlarged. The right atrium is moderately enlarged. Mild (1+) tricuspid valve insufficiency. 6. Acute kidney injury ? Suspected to be secondary to ATN from septic shock. Baseline creatinine 0.7 creatinine on admission 2.45. Patient being managed with IV fluid with monitoring monitoring of response to therapy with serial BMP ; given the persistent impaired kidney function consult was placed to nephrology ?11/20/2024; patient kidney function continues to worsen nephrology on board 7. Acute transaminitis ? Secondary to shock liver. Repeated LFTs in a.m. for follow-up 8. Paroxysmal atrial fibrillation ? Rate controlled with atenolol which is currently being held given patient low blood pressure patient is also on systemic anticoagulation with rivaroxaban did continue 8. Essential hypertension ? Patient antihypertensives held given her presentation 9. Low back pain ? Imaging studies obtained demonstrated Mild compression of the inferior endplates, L3 and L4 may be related to remote trauma. Patient being managed with pain meds as well as muscle relaxant 10. Psoriatic arthritis -On Skyrizi every 3 month self injection 10. GERD -Continue home famotidine 11. DVT prophylaxis ? Already anticoagulated with rivaroxaban 12. Physical deconditioning ? Requested for PT OT eval and social security benefits interviewer to assist with discharge planning ? 11/21/2024; patient agrees [facility] being [facility] 13. Hypernatremia ? Started patient on 0.45 saline with repeat labs ordered in a.m. ? 11/22/2024; sodium levels down to 142 14. Hypokalemia -Corrected per protocol Time spent in the patient's overall evaluation,decision-making process, review of diagnostic data, adjustment of management, discussion with other providers, nursing nursing and ancillary staff involved in patient's care documentation, 38minutes Charges/Coding Visit Charges Inpatient E&M: 45530 Subs Hosp L2 11/22/24 0907 <Electronically signed by Kevin Robles MD> Cosigner Signature (if applicable): CC: ~ Signed [facility] Work Phone: 1(221) 555-392104-04-2025 [facility] [address] [place] [address] Progress Note - Hospitalist 11/22/24 0900 MR#: [id number] Acct: [id number] Name: LESLI ROSALES Rep #:[id number] : 1940 84 From: Kevin Robles MD PCP: SILVIA GUTHRIE Status:ADM IN Location: [place] [address] Reason for Visit Reason for Visit: Diagnoses Sepsis, unspecified organism (11/17/24) Acute kidney failure, unspecified (11/17/24) Shock, unspecified (11/17/24) Severe sepsis with septic shock (11/17/24) Subjective Subjective Patient seen much more energetic compared to previous day. Patient creatinine down to 2.9, potassium however is 3.1. Patient was on lactulose discontinued following improvement in her mentation and tremors Objective Data Objective Data Vital Signs: Vital Signs Temp Pulse Resp BP Pulse Ox O2 Del Method O2 Flow Rate 97.3 F L 84 18 132/74 H 95 Nasal Cannula 2 11/22/24 03:00 11/22/24 03:00 11/22/24 03:00 11/22/24 03:00 11/22/24 03:00 11/22/24 08:56 11/22/24 08:56 Oxygen Flow Rate (L/min) 2 Oxygen Delivery Method Nasal Cannula Weight: 75.6 kg Body Mass Index (BMI) 32.5 Intake & Output: Intake and Output for Last 24 Hours 11/20/24 11/21/24 11/22/24 23:59 23:59 23:59 Intake Total 1596 / 1696 1125 / 1125 1125 / 1125 Output Total 350 / 850 975 / 975 150 / 150 Balance 1246 / 846 150 / 150 975 / 975 Lab / Micro Data 11/22/24 05:09 11/22/24 05:09 Labs: Laboratory Results - last 24 hr 11/19/24 04:18: Diff Path Review N/A 11/22/24 05:09: WBC 12.9 H, RBC 4.42, Hgb 14.4, Hct 44.9, MCV 101.6 H, MCH 32.6 H, MCHC 32.1, RDW Std Deviation 51.5 H, RDW Coeff of Mildred 13.5, Plt Count 121 L, MPV 11.3, Immature Gran % (Auto) 0.500,Neut % (Auto) 79.9 H, Lymph % (Auto) 6.4L, [place] % (Auto) 12.1 H, Eos % (Auto) 0.9, Baso % (Auto) 0.2, Absolute Neuts (auto) 10.3 H, Absolute Lymphs (auto) 0.82 L, Nucleated RBC % 0, Platelet EstimateSLT DEC, Sodium 142, Potassium 3.1 L, Chloride 111 H, Carbon Dioxide 20.8 L, Anion Gap 11, BUN 74 H, Creatinine 2.29 H, Estim Creat Clear Calc 16.91 L, Est GFR (MDRD) Non-Af 21 L, BUN/Creatinine Ratio 32.3 H, Glucose 82, Calcium 8.2, Phosphorus 3.4, Magnesium 2.2 Micro: Microbiology 11/17/24 13:37 Blood Culture (Wb) - Anticubital Left Blood Culture - Preliminary No growth in 48 hours. 11/17/24 13:37 Blood Culture (Wb) - Anticubital Right Blood Culture - Preliminary No growth in 48 hours. 11/17/24 18:55 Mucosa - Nasopharyngeal Respiratory Panel (PCR) - Final 11/17/24 18:30 Nasal Secretion MRSA (PCR) - Final 11/17/24 18:30 Urine Catheter - Llanos Legionella Antigen - Final 11/17/24 18:30 Urine Catheter - Llanos Streptococcus pneumoniae Antigen (M - Final 11/17/24 13:20 Mucosa - Nose SARS-CoV-2, Influenza & RSV (PCR) - Final Physical Exam Narrative GENERAL: Much more interactive HEENT: Atraumatic; normocephalic EYES; Anicteric, Normal Conjunctiva NECK; supple, normal thyroid, RESPIRATORY: Diminished to auscultation CARDIOVASCULAR: Regular S1 S2, GI: soft, normoactive bowel sounds, : No Renal angle tenderness; EXTREMITIES: No edema, no clubbing, MUSCULOSKELETAL: no muscle wasting NEURO: Awake; no lateralizing signs. SKIN: No Rash PSYCH; Flat affect Assessment & Plan Assessment/Plan (1) Septic shock: PLAN: Plan Patient is an 84-year-old lady who was admitted with progressive generalized weakness and low back pain imaging studies obtained on admission demonstrated bilateral airspace opacities compatible withpneumonitis/pneumonia. An assessment of septic shock secondary to pneumonia made admitted to the intensivecare unit for further management 1. Septic shock ? Secondary to pneumonia Patient presented with progressive generalized weakness was found to be hypotensive with elevated WBC count and elevated lactic acid levels. Patient was admitted to the intensive care unit managed with IV fluid resuscitation, broad- spectrum antibiotic therapy after cultures have been sent patient placed on Levophed and still remains on Levophed as of the morning of 11/18/2024. Response to therapy being monitored with serial lactic acid levels ?11/19/2024; patient was noted to have low urine output did receive fluid bolus ? 11/20/2024 2. Levophed was weaned off 2 days prior and subsequently transferredto the progressive care unit. Patient cultures so far negative to date 2. Abnormal urinalysis ? Patient did not have pyuria however had elevated leukocyte Estrace patient remains on broad-spectrum antibiotic therapy cultures pending -Patient has a Llanos catheter in place with some trace hematuria. Patient urinecultures apparently not sent on admission 3. Acute hypoxia ? Secondary to pneumonia management as discussed above patient was also placed on supplemental oxygen titrated to keep saturation greater than 90 4. Acute metabolic encephalopathy ? Multifactorial including patient septic shock hypoxia in addition patient was found to have hyperammonemia. Given the setting of impaired liver function did order lactulose ? 11/20/2024 patient continues to experience involuntary movement repeated ammonialevels. ? 11/22/2024; patient back to baseline lactulose discontinued 5. Elevated troponin secondary to demand ischemia from septic shock -Patient with elevated troponin of 482 and proBNP of nearly 22,000, suspect thatthis is part of theendorgan damage from her septic shock. Patient being managed with serial troponins ordered 2D echo for EF assessment ? 11/20/2024; 2D echo obtained on 11/17/2024 did show The left ventricular ejectionfraction is 60 %. Normal LV size. The left atrium is severely enlarged. The right atrium is moderately enlarged. Mild (1+) tricuspid valve insufficiency. 6. Acute kidney injury ? Suspected to be secondary to ATN from septic shock. Baseline creatinine 0.7 creatinine on admission 2.45. Patient being managed with IV fluid with monitoring monitoring of response to therapy with serial BMP ; given the persistent impaired kidney function consult was placed to nephrology ?11/20/2024; patient kidney function continues to worsen nephrology on board 7. Acute transaminitis ? Secondary to shock liver. Repeated LFTs in a.m. for follow-up 8. Paroxysmal atrial fibrillation ? Rate controlled with atenolol which is currently being held given patient low blood pressure patient is also on systemic anticoagulation with rivaroxaban did continue 8. Essential hypertension ? Patient antihypertensives held given her presentation 9. Low back pain ? Imaging studies obtained demonstrated Mild compression of the inferior endplates, L3 and L4 may be related to remote trauma. Patient being managed with pain meds as well as muscle relaxant 10. Psoriatic arthritis -On Skyrizi every 3 month self injection 10. GERD -Continue home famotidine 11. DVT prophylaxis ? Already anticoagulated with rivaroxaban 12. Physical deconditioning ? Requested for PT OT eval and social security benefits interviewer to assist with discharge planning ? 11/21/2024; patient agrees [facility] being [facility] 13. Hypernatremia ? Started patient on 0.45 saline with repeat labs ordered in a.m. ? 11/22/2024; sodium levels down to 142 14. Hypokalemia -Corrected per protocol Time spent in the patient's overall evaluation,decision-making process, review of diagnostic data, adjustment of management, discussion with other providers, nursing nursing and ancillary staff involved in patient's care documentation, 38minutes Charges/Coding Visit Charges Inpatient E&M: 24401 Subs Hosp L2 11/22/24 0907 Cosigner Signature (if applicable): CC: ~ Signed [facility]04-03-2025 Progress note Author Ester [facility]os [facility] Note Date/Time November 21, 2024 9:14 pm [facility] Medical Records Department [address] [place] [address] Progress Note - Nephrology 11/21/24 1105 MR#: [id number] Acct: [id number] Name: LESLI ROSALES Rep #:[id number] : 1940 84 From: Ester NIELSEN PCP: SILVIA GUTHRIE Status:ADM IN Location: [place] [address] Documented by User: MORALES Schaeffer 11/21/24 11:10 Subjective Subjective Sitting in chair. States still has no appetite but is drinking water. Objective Data Objective Data Vital Signs: Vital Signs Temp Pulse Resp BP Pulse Ox O2 Del Method O2 Flow Rate 98.2 F 86 17 150/80 H 94 Nasal Cannula 1 11/21/24 09:00 11/21/24 09:00 11/21/24 09:00 11/21/24 09:00 11/21/24 09:00 11/21/24 09:00 11/21/24 09:55 Oxygen Flow Rate (L/min) 1 Oxygen Delivery Method Nasal Cannula Weight: 75.5 kg Body Mass Index (BMI) 32.5 Intake & Output: Intake and Output for Last 24 Hours 11/19/24 11/20/24 11/21/24 23:59 23:59 23:59 Intake Total 2287.21 / 2487.21 1596 / 1696 150 / 150 Output Total 650 / 650 350 / 850 675 / 675 Balance 1637.21 / 1837.21 1246 / 846 -525 / -525 Lab / Micro Data 11/21/24 04:42 11/21/24 04:42 Labs: Laboratory Results - last 24 hr 11/21/24 04:42: WBC 12.6 H, RBC 4.44, Hgb 14.3, Hct 44.6, MCV 100.5 H, MCH 32.2 H, MCHC 32.1, RDW Std Deviation 52.2 H, RDW Coeff of Mildred 14.0, Plt Count 136 L, MPV 11.1, Immature Gran % (Auto) 0.500, Neut % (Auto) 80.1 H, Lymph % (Auto) 7.2L, [place] % (Auto) 11.9 H, Eos % (Auto) 0.1, Baso % (Auto) 0.2, Absolute Neuts (auto) 10.1 H, Absolute Lymphs (auto) 0.91, Nucleated RBC % 0, Sodium 148 H, Potassium 3.1 L, Chloride 114 H, Carbon Dioxide 22.2, Anion Gap 11, BUN 78 H, Creatinine 2.61 H, Estim Creat Clear Calc 14.82 L, Est GFR (MDRD) Non-Af 18 L, BUN/Creatinine Ratio 29.9 H, Glucose 87, Calcium 8.5, Total Bilirubin 1.04, Direct Bilirubin 0.60 H, AST 40 H, ALT 141 H, Alkaline Phosphatase 141 H, Total Protein 5.4 L, Albumin 2.9 L, Globulin 2.5 Micro: Microbiology 11/17/24 13:37 Blood Culture (Wb) - Anticubital Left Blood Culture - Preliminary No growth in 48 hours. 11/17/24 13:37 Blood Culture (Wb) - Anticubital Right Blood Culture - Preliminary No growth in 48 hours. 11/17/24 18:55 Mucosa - Nasopharyngeal Respiratory Panel (PCR) - Final 11/17/24 18:30 Nasal Secretion MRSA (PCR) - Final 11/17/24 18:30 Urine Catheter - Llanos Legionella Antigen - Final 11/17/24 18:30 Urine Catheter - Llanos Streptococcus pneumoniae Antigen (M - Final 11/17/24 13:20 Mucosa - Nose SARS-CoV-2, Influenza & RSV (PCR) - Final Physical Exam Narrative alert and oriented, sitting in chair no obvious distress lungs clear anteriorly abdomen soft, nontender no edema llanos with pinkish tinged colored urine in bag Assessment & Plan Assessment/Plan (1) NAT (acute kidney injury): PLAN: - NAT, baseline creatinine was normal in 2021, gap in labs until this hospitalization. NAT likely secondary to septic shock, pneumonia, hypotension. Creatinine 2.4 on admission--> SCr 2.2 11/18, creatinine 2.6 mg/dL last 2 days. No acute indication for LINE PALLETIZER. Potassium low, receiving replacement and bicarb acceptable. Patient does have urine output and looks to be picking up. No edema. Per patient appetite is poor, encouraged oral intake as best as she can. Patient is being started on IV fluids this morning. Labs ordered from morning. -Septic shock secondary to pneumonia. Patient had been on Levophed. Off Levophed. Blood pressures were marginally low but slowly improving. Not on anyantihypertensives. On O2 2 L nasal cannula. Assessment and plan reviewed with Dr. Arias. Documented by User: Dr. Izabel Arias MD 11/21/24 21:14 Objective Data Lab / Micro Data 11/21/24 04:42 11/21/24 04:42 Assessment & Plan Assessment/Plan (1) NAT (acute kidney injury): PLAN: - NAT, baseline creatinine was normal in 2021, gap in labs until this hospitalization. NAT likely secondary to septic shock, pneumonia, hypotension. Creatinine 2.4 on admission--> SCr 2.2 11/18, creatinine 2.6 mg/dL last 2 days. No acute indication for LINE PALLETIZER. Potassium low, receiving replacement and bicarb acceptable. Patient does have urine output and looks to be picking up. No edema. Per patient appetite is poor, encouraged oral intake as best as she can. Patient is being started on IV fluids this morning. Labs ordered from morning. -Septic shock secondary to pneumonia. Patient had been on Levophed. Off Levophed. Blood pressures were marginally low but slowly improving. Not on anyantihypertensives. On O2 2 L nasal cannula. Assessment and plan reviewed with Dr. Arias. Addendum dw [facility] 11/21/24 1110 <Electronically signed by Ester NIELSEN> Cosigner Signature (if applicable): 11/21/245 <Electronically signed by Izabel Arias MD> CC: ~ Signed [facility] Work Phone: 1(222) 872-167904-03-2025 Progress note [facility] Medical Records Department [address] [place] [address] Progress Note - Nephrology 11/21/24 1105 MR#: [id number] Acct: [id number] Name: LESLI ROSALES Rep #:[id number] : 1940 84 From: Ester NIELSEN PCP: SILVIA GUTHRIE Status:ADM IN Location: [place] [address] Documented by User: MORALES Schaeffer 11/21/24 11:10 Subjective Subjective Sitting in chair. States still has no appetite but is drinking water. Objective Data Objective Data Vital Signs: Vital Signs Temp Pulse Resp BP Pulse Ox O2 Del Method O2 Flow Rate 98.2 F 86 17 150/80 H 94 Nasal Cannula 1 11/21/24 09:00 11/21/24 09:00 11/21/24 09:00 11/21/24 09:00 11/21/24 09:00 11/21/24 09:00 11/21/24 09:55 Oxygen Flow Rate (L/min) 1 Oxygen Delivery Method Nasal Cannula Weight: 75.5 kg Body Mass Index (BMI) 32.5 Intake & Output: Intake and Output for Last 24 Hours 11/19/24 11/20/24 11/21/24 23:59 23:59 23:59 Intake Total 2287.21 / 2487.21 1596 / 1696 150 / 150 Output Total 650 / 650 350 / 850 675 / 675 Balance 1637.21 / 1837.21 1246 / 846 -525 / -525 Lab / Micro Data 11/21/24 04:42 11/21/24 04:42 Labs: Laboratory Results - last 24 hr 11/21/24 04:42: WBC 12.6 H, RBC 4.44, Hgb 14.3, Hct 44.6, MCV 100.5 H, MCH 32.2 H, MCHC 32.1, RDW Std Deviation 52.2 H, RDW Coeff of Mildred 14.0, Plt Count 136 L, MPV 11.1, Immature Gran % (Auto) 0.500,Neut % (Auto) 80.1 H, Lymph % (Auto) 7.2L, [place] % (Auto) 11.9 H, Eos % (Auto) 0.1, Baso % (Auto) 0.2, Absolute Neuts (auto) 10.1 H, Absolute Lymphs (auto) 0.91, Nucleated RBC % 0, Sodium 148 H, Potassium 3.1 L, Chloride 114 H, Carbon Dioxide 22.2, Anion Gap 11, BUN 78 H, Creatinine 2.61 H, Estim Creat Clear Calc 14.82 L, Est GFR (MDRD) Non-Af 18 L, BUN/Creatinine Ratio 29.9 H, Glucose 87, Calcium8.5, Total Bilirubin 1.04, Direct Bilirubin 0.60 H, AST 40 H, ALT 141 H, Alkaline Phosphatase 141 H, Total Protein 5.4 L, Albumin 2.9 L, Globulin 2.5 Micro: Microbiology 11/17/24 13:37 Blood Culture (Wb) - Anticubital Left Blood Culture - Preliminary No growth in 48 hours. 11/17/24 13:37 Blood Culture (Wb) - Anticubital Right Blood Culture - Preliminary No growth in 48 hours. 11/17/24 18:55 Mucosa - Nasopharyngeal Respiratory Panel (PCR) - Final 11/17/24 18:30 Nasal Secretion MRSA (PCR) - Final 11/17/24 18:30 Urine Catheter - Llanos Legionella Antigen - Final 11/17/24 18:30 Urine Catheter - Llanos Streptococcus pneumoniae Antigen (M - Final 11/17/24 13:20 Mucosa - Nose SARS-CoV-2, Influenza & RSV (PCR) - Final Physical Exam Narrative alert and oriented, sitting in chair no obvious distress lungs clear anteriorly abdomen soft, nontender no edema llanos with pinkish tinged colored urine in bag Assessment & Plan Assessment/Plan (1) NAT (acute kidney injury): PLAN: - NAT, baseline creatinine was normal in 2021, gap in labs until this hospitalization. NAT likely secondary to septic shock, pneumonia, hypotension. Creatinine 2.4 on admission--> SCr 2.2 11/18, creatinine 2.6 mg/dL last 2 days. No acute indication for LINE PALLETIZER. Potassium low, receiving replacement and bicarb acceptable. Patient does have urine output and looks to be picking up. No edema. Per patient appetite is poor, encouraged oral intake as best as she can. Patient is being started on IV fluids this morning. Labs ordered from morning. -Septic shock secondary to pneumonia. Patient had been on Levophed. Off Levophed. Blood pressures were marginally low but slowly improving. Not on anyantihypertensives. On O2 2 L nasal cannula. Assessment and plan reviewed with Dr. Arias. Documented by User: Dr. Izabel Arias MD 11/21/24 21:14 Objective Data Lab / Micro Data 11/21/24 04:42 11/21/24 04:42 Assessment & Plan Assessment/Plan (1) NAT (acute kidney injury): PLAN: - NAT, baseline creatinine was normal in 2021, gap in labs until this hospitalization. NAT likely secondary to septic shock, pneumonia, hypotension. Creatinine 2.4 on admission--> SCr 2.2 11/18, creatinine 2.6 mg/dL last 2 days. No acute indication for LINE PALLETIZER. Potassium low, receiving replacement and bicarb acceptable. Patient does have urine output and looks to be picking up. No edema. Per patient appetite is poor, encouraged oral intake as best as she can. Patient is being started on IV fluids this morning. Labs ordered from morning. -Septic shock secondary to pneumonia. Patient had been on Levophed. Off Levophed. Blood pressures were marginally low but slowly improving. Not on anyantihypertensives. On O2 2 L nasal cannula. Assessment and plan reviewed with Dr. Arias. Addendum dw [employer] 11/21/24 1110 Cosigner Signature (if applicable): 11/21/244 CC: ~ Signed [facility]04-03-2025 Progress note Author Kevin Robles [facility] Note Date/Time November 21, 2024 10:1 6am [facility] Medical Records Department [address] [place] [address] Progress Note - Hospitalist 11/21/24 1013 MR#: [id number] Acct: [id number] Name: LESLI ROSALES Rep #:[id number] : 1940 84 From: Kevin Robles MD PCP: SILVIA GUTHRIE Status:ADM IN Location: [place] [address]- Reason for Visit Reason for Visit: Diagnoses Sepsis, unspecified organism (11/17/24) Acute kidney failure, unspecified (11/17/24) Shock, unspecified (11/17/24) Severe sepsis with septic shock (11/17/24) Subjective Subjective Patient seen appears frail looking. No significant change in kidney function. Sodium levels trending up. Objective Data Objective Data Vital Signs: Vital Signs Temp Pulse Resp BP Pulse Ox O2 Del Method O2 Flow Rate 98.2 F 86 17 150/80 H 94 Nasal Cannula 1 11/21/24 09:00 11/21/24 09:00 11/21/24 09:00 11/21/24 09:00 11/21/24 09:00 11/21/24 09:00 11/21/24 09:00 Oxygen Flow Rate (L/min) 1 Oxygen Delivery Method Nasal Cannula Weight: 75.5 kg Body Mass Index (BMI) 32.5 Intake & Output: Intake and Output for Last 24 Hours 11/19/24 11/20/24 11/21/24 23:59 23:59 23:59 Intake Total 2287.21 / 2487.21 1596 / 1696 150 / 150 Output Total 650 / 650 350 / 850 675 / 675 Balance 1637.21 / 1837.21 1246 / 846 -525 / -525 Lab / Micro Data 11/21/24 04:42 11/21/24 04:42 Labs: Laboratory Results - last 24 hr 11/21/24 04:42: WBC 12.6 H, RBC 4.44, Hgb 14.3, Hct 44.6, MCV 100.5 H, MCH 32.2 H, MCHC 32.1, RDW Std Deviation 52.2 H, RDW Coeff of Mildred 14.0, Plt Count 136 L, MPV 11.1, Immature Gran % (Auto) 0.500, Neut % (Auto) 80.1 H, Lymph % (Auto) 7.2L, [place] % (Auto) 11.9 H, Eos % (Auto) 0.1, Baso % (Auto) 0.2, Absolute Neuts (auto) 10.1 H, Absolute Lymphs (auto) 0.91, Nucleated RBC % 0, Sodium 148 H, Potassium 3.1 L, Chloride 114 H, Carbon Dioxide 22.2, Anion Gap 11, BUN 78 H, Creatinine 2.61 H, Estim Creat Clear Calc 14.82 L, Est GFR (MDRD) Non-Af 18 L, BUN/Creatinine Ratio 29.9 H, Glucose 87, Calcium 8.5, Total Bilirubin 1.04, Direct Bilirubin 0.60 H, AST 40 H, ALT 141 H, Alkaline Phosphatase 141 H, Total Protein 5.4 L, Albumin 2.9 L, Globulin 2.5 Micro: Microbiology 11/17/24 13:37 Blood Culture (Wb) - Anticubital Left Blood Culture - Preliminary No growth in 48 hours. 11/17/24 13:37 Blood Culture (Wb) - Anticubital Right Blood Culture - Preliminary No growth in 48 hours. 11/17/24 18:55 Mucosa - Nasopharyngeal Respiratory Panel (PCR) - Final 11/17/24 18:30 Nasal Secretion MRSA (PCR) - Final 11/17/24 18:30 Urine Catheter - Llanos Legionella Antigen - Final 11/17/24 18:30 Urine Catheter - Llanos Streptococcus pneumoniae Antigen (M - Final 11/17/24 13:20 Mucosa - Nose SARS-CoV-2, Influenza & RSV (PCR) - Final Physical Exam Narrative GENERAL: Patient appears ill looking HEENT: Atraumatic; normocephalic EYES; Anicteric, Normal Conjunctiva NECK; supple, normal thyroid, RESPIRATORY: Diminished to auscultation CARDIOVASCULAR: Regular S1 S2, GI: soft, normoactive bowel sounds, : No Renal angle tenderness; EXTREMITIES: No edema, no clubbing, MUSCULOSKELETAL: no muscle wasting NEURO: Awake; no lateralizing signs. SKIN: No Rash PSYCH; Flat affect Assessment & Plan Assessment/Plan (1) Septic shock: PLAN: Plan Patient is an 84-year-old lady who was admitted with progressive generalized weakness and low back pain imaging studies obtained on admission demonstrated bilateral airspace opacities compatible with pneumonitis/pneumonia. An assessment of septic shock secondary to pneumonia made admitted to the intensivecare unit for further management 1. Septic shock ? Secondary to pneumonia Patient presented with progressive generalized weakness was found to be hypotensive with elevated WBC count and elevated lactic acid levels. Patient was admitted to the intensive care unit managed with IV fluid resuscitation, broad-spectrum antibiotic therapy after cultures have been sent patient placed on Levophed and still remains on Levophed as of the morning of 11/18/2024. Response to therapy being monitored with serial lactic acid levels ?11/19/2024; patient was noted to have low urine output did receive fluid bolus ? 11/20/2024 2. Levophed was weaned off 2 days prior and subsequently transferredto the progressive care unit. Patient cultures so far negative to date 2. Abnormal urinalysis ? Patient did not have pyuria however had elevated leukocyte Estrace patient remains on broad-spectrum antibiotic therapy cultures pending -Patient has a Llanos catheter in place with some trace hematuria. Patient urinecultures apparently not sent on admission 3. Acute hypoxia ? Secondary to pneumonia management as discussed above patient was also placed on supplemental oxygen titrated to keep saturation greater than 90 4. Acute metabolic encephalopathy ? Multifactorial including patient septic shock hypoxia in addition patient was found to have hyperammonemia. Given the setting of impaired liver function did order lactulose ? 11/20/2024 patient continues to experience involuntary movement repeated ammonialevels. 5. Elevated troponin secondary to demand ischemia from septic shock -Patient with elevated troponin of 482 and proBNP of nearly 22,000, suspect thatthis is part of the endorgan damage from her septic shock. Patient being managed with serial troponins ordered 2D echo for EF assessment ? 11/20/2024; 2D echo obtained on 11/17/2024 did show The left ventricular ejectionfraction is 60 %. Normal LV size. The left atrium is severely enlarged. The right atrium is moderately enlarged. Mild (1+) tricuspid valve insufficiency. 6. Acute kidney injury ? Suspected to be secondary to ATN from septic shock. Baseline creatinine 0.7 creatinine on admission 2.45. Patient being managed with IV fluid with monitoring monitoring of response to therapy with serial BMP ; given the persistent impaired kidney function consult was placed to nephrology ?11/20/2024; patient kidney function continues to worsen nephrology on board 7. Acute transaminitis ? Secondary to shock liver. Repeated LFTs in a.m. for follow-up 8. Paroxysmal atrial fibrillation ? Rate controlled with atenolol which is currently being held given patient low blood pressure patient is also on systemic anticoagulation with rivaroxaban did continue 8. Essential hypertension ? Patient antihypertensives held given her presentation 9. Low back pain ? Imaging studies obtained demonstrated Mild compression of the inferior endplates, L3 and L4 may be related to remote trauma. Patient being managed with pain meds as well as muscle relaxant 10. Psoriatic arthritis -On Skyrizi every 3 month self injection 10. GERD -Continue home famotidine 11. DVT prophylaxis ? Already anticoagulated with rivaroxaban 12. Physical deconditioning ? Requested for PT OT eval and social security benefits interviewer to assist with discharge planning ? 11/21/2024; patient agrees [facility] being [facility] 13. Hypernatremia ? Started patient on 0.45 saline with repeat labs ordered in a.m. Time spent in the patient's overall evaluation,decision-making process, review of diagnostic data, adjustment of management, discussion with other providers, nursing nursing and ancillary staff involved in patient's care documentation, 50minutes Charges/Coding Visit Charges Inpatient E&M: 26993 Subs Hosp L3 11/21/24 1016 <Electronically signed by Kevin Robles MD> Cosigner Signature (if applicable): CC: ~ Signed [facility] Work Phone: [phone]) 238-343504-03-2025 Progress note Author [facility] Note Date/Time November 21, 2024 9:42 am [facility] Medical Records Department [address] [place] [address] Progress Note - Superintendent Power 11/21/24 0940 MR#: [id number] Acct: [id number] Name: LESLI ROSALES Rep #:[id number] : 1940 84 From: Gato Givens DO PCP: SILVIA GUTHRIE Status:ADM IN Location: [place] [address] Assessment & Plan Assessment/Plan (1) Shock: PLAN: Plan RECOMMENDATIONS: 1. Continue supplemental oxygen for baseline requirement. 2. Continue Xarelto per home regimen. 3. Physical therapy to work with the patient. 4. Okay to discontinue antibiotics from my perspective. 5. Stress dose steroids will be discontinued today. 6. Recommend removal of central venous catheter. 7. Will sign off from a pulmonary/critical care perspective. Please call with any additional questions. IMPRESSIONS: 1. Undifferentiated shock While the patient initially was admitted to the hospital with septic shock presumed secondary to pneumonia, subsequent imaging of her chest failed to demonstrate any radiographic findings concerning for infection. Infectious workup from a culture perspective has been unrevealing to date. Therefore, I think it is far more likely that the patient's presenting symptoms and clinical presentation more likely the consequence of hypovolemic shock. An obstructive etiology, such as pulmonary embolism, seems highly unlikely, given that the patient is maintained on Xarelto as an outpatient. Additionally, surface echocardiogram revealed intact systolic function. Given negative culture data to date, I am okay with discontinuing antibiotics. Given the patient's hemodynamic stability, we will discontinue stress dose steroids today. 2. Acute kidney injury Most likely prerenal in etiology. Avoid nephrotoxic medications. Continue to monitor urine output. No current indication for renal replacement therapy. Nephrology is following to assist with medical management. 3. Questionable history of COPD/chronic hypoxemic respiratory failure on 2 L/min/atrial fibrillation/low back pain Complicates care, management, recovery and prognosis. Continue supportive measures as noted above. This note was generated with TELOSation software. It may contain incorrectwords, spelling, and punctuation that were not noted in checking the note beforesigning. Subjective Subjective The patient was seen and examined at the bedside this morning. Events from the last 24 hours have been reviewed. The patient is currently afebrile, hemodynamically stable and maintaining appropriate oxygen saturations on 1 L/minvia nasal cannula. The patient still has ongoing pain related complaints. White blood cell count was noted to be 12,000 this morning. Creatinine is stable at 2.6. Given the patient's hemodynamic stability, stress dose steroids were discontinued. Objective Data Objective Data The patient's most recent lab work, culture data and imaging studies have all been personally reviewed. Respiratory viral panel was negative. Strep and urine Legionella antigens were negative. Blood cultures have not demonstrated any growth to date. Vital Signs: Vital Signs Temp Pulse Resp BP Pulse Ox O2 Del Method O2 Flow Rate 98.2 F 86 17 150/80 H 94 Nasal Cannula 1 11/21/24 09:00 11/21/24 09:00 11/21/24 09:00 11/21/24 09:00 11/21/24 09:00 11/21/24 09:00 11/21/24 09:00 Oxygen Flow Rate (L/min) 1 Oxygen Delivery Method Nasal Cannula Weight: 166 lb 7.184 oz Body Mass Index (BMI) 32.5 Intake & Output: Intake and Output for Last 24 Hours 11/19/24 11/20/24 11/21/24 23:59 23:59 23:59 Intake Total 2287.21 / 2487.21 1596 / 1696 150 / 150 Output Total 650 / 650 350 / 850 675 / 675 Balance 1637.21 / 1837.21 1246 / 846 -525 / -525 Lab / Micro Data Attestation: I reviewed the patient's lab results. 11/21/24 04:42 11/21/24 04:42 Labs: Laboratory Results - last 24 hr 11/21/24 04:42: WBC 12.6 H, RBC 4.44, Hgb 14.3, Hct 44.6, MCV 100.5 H, MCH 32.2 H, MCHC 32.1, RDW Std Deviation 52.2 H, RDW Coeff of Mildred 14.0, Plt Count 136 L, MPV 11.1, Immature Gran % (Auto) 0.500, Neut % (Auto) 80.1 H, Lymph % (Auto) 7.2L, [place] % (Auto) 11.9 H, Eos % (Auto) 0.1, Baso % (Auto) 0.2, Absolute Neuts (auto) 10.1 H, Absolute Lymphs (auto) 0.91, Nucleated RBC % 0, Sodium 148 H, Potassium 3.1 L, Chloride 114 H, Carbon Dioxide 22.2, Anion Gap 11, BUN 78 H, Creatinine 2.61 H, Estim Creat Clear Calc 14.82 L, Est GFR (MDRD) Non-Af 18 L, BUN/Creatinine Ratio 29.9 H, Glucose 87, Calcium 8.5, Total Bilirubin 1.04, Direct Bilirubin 0.60 H, AST 40 H, ALT 141 H, Alkaline Phosphatase 141 H, Total Protein 5.4 L, Albumin 2.9 L, Globulin 2.5 Micro: Microbiology 11/17/24 13:37 Blood Culture (Wb) - Anticubital Left Blood Culture - Preliminary No growth in 48 hours. 11/17/24 13:37 Blood Culture (Wb) - Anticubital Right Blood Culture - Preliminary No growth in 48 hours. 11/17/24 18:55 Mucosa - Nasopharyngeal Respiratory Panel (PCR) - Final 11/17/24 18:30 Nasal Secretion MRSA (PCR) - Final 11/17/24 18:30 Urine Catheter - Llanos Legionella Antigen - Final 11/17/24 18:30 Urine Catheter - Llanos Streptococcus pneumoniae Antigen (M - Final 11/17/24 13:20 Mucosa - Nose SARS-CoV-2, Influenza & RSV (PCR) - Final Radiography Diagnostic Testing: Radiology Impression Echocardiogram 11/17/24 20:43 Interpretation Summary The left ventricular ejection fraction is 60 %. Normal LV size. The left atrium is severely enlarged. The right atrium is moderately enlarged. Mild (1+) tricuspid valve insufficiency. Ordering Physician: Lorna Salvador Performed By: Edi David RCS Physical Exam Const alert and no apparent distress General Appearance: cooperative HEENT normocephalic and head/scalp atraumatic Eyes EOMs intact bilaterally, conjunctivae normal and no scleral icterus Neck supple General: trachea midline and CVC in place Chest inspection of chest normal Resp normal respiratory effort Auscultation: Negative for rales, rhonchi or wheezes Cardio regular rate and regular rhythm GI normal to inspection, nondistended, normoactive bowel sounds Extremity no clubbing, cyanosis or edema Skin no rashes or lesions noted Neuro CN's II-XII intact bilaterally and moves all extremities Psych Mood & Affect: flat affect Charges/Coding Visit Charges Inpatient E&M: 31408 Subs Hosp L2 11/21/24 0942 <Electronically signed by Gato Givens DO> Cosigner Signature (if applicable): CC: ~ Signed [facility] Work Phone: 1(857) 945-950304-03-2025 Progress note [facility] Medical Records Department [address] [place] [address] Progress Note - Hospitalist 11/21/24 1013 MR#: [id number] Acct: [id number] Name: LESLI ROSALES Rep #:[id number] : 1940 84 From: Kevin Robles MD PCP: SILVIA GUTHRIE Status:ADM IN Location: [place] [address] Reason for Visit Reason for Visit: Diagnoses Sepsis, unspecified organism (11/17/24) Acute kidney failure, unspecified (11/17/24) Shock, unspecified (11/17/24) Severe sepsis with septic shock (11/17/24) Subjective Subjective Patient seen appears frail looking. No significant change in kidney function. Sodium levels trending up. Objective Data Objective Data Vital Signs: Vital Signs Temp Pulse Resp BP Pulse Ox O2 Del Method O2 Flow Rate 98.2 F 86 17 150/80 H 94 Nasal Cannula 1 11/21/24 09:00 11/21/24 09:00 11/21/24 09:00 11/21/24 09:00 11/21/24 09:00 11/21/24 09:00 11/21/24 09:00 Oxygen Flow Rate (L/min) 1 Oxygen Delivery Method Nasal Cannula Weight: 75.5 kg Body Mass Index (BMI) 32.5 Intake & Output: Intake and Output for Last 24 Hours 11/19/24 11/20/24 11/21/24 23:59 23:59 23:59 Intake Total 2287.21 / 2487.21 1596 / 1696 150 / 150 Output Total 650 / 650 350 / 850 675 / 675 Balance 1637.21 / 1837.21 1246 / 846 -525 / -525 Lab / Micro Data 11/21/24 04:42 11/21/24 04:42 Labs: Laboratory Results - last 24 hr 11/21/24 04:42: WBC 12.6 H, RBC 4.44, Hgb 14.3, Hct 44.6, MCV 100.5 H, MCH 32.2 H, MCHC 32.1, RDW Std Deviation 52.2 H, RDW Coeff of Mildred 14.0, Plt Count 136 L, MPV 11.1, Immature Gran % (Auto) 0.500,Neut % (Auto) 80.1 H, Lymph % (Auto) 7.2L, [place] % (Auto) 11.9 H, Eos % (Auto) 0.1, Baso % (Auto) 0.2, Absolute Neuts (auto) 10.1 H, Absolute Lymphs (auto) 0.91, Nucleated RBC % 0, Sodium 148 H, Potassium 3.1 L, Chloride 114 H, Carbon Dioxide 22.2, Anion Gap 11, BUN 78 H, Creatinine 2.61 H, Estim Creat Clear Calc 14.82 L, Est GFR (MDRD) Non-Af 18 L, BUN/Creatinine Ratio 29.9 H, Glucose 87, Calcium8.5, Total Bilirubin 1.04, Direct Bilirubin 0.60 H, AST 40 H, ALT 141 H, Alkaline Phosphatase 141 H, Total Protein 5.4 L, Albumin 2.9 L, Globulin 2.5 Micro: Microbiology 11/17/24 13:37 Blood Culture (Wb) - Anticubital Left Blood Culture - Preliminary No growth in 48 hours. 11/17/24 13:37 Blood Culture (Wb) - Anticubital Right Blood Culture - Preliminary No growth in 48 hours. 11/17/24 18:55 Mucosa - Nasopharyngeal Respiratory Panel (PCR) - Final 11/17/24 18:30 Nasal Secretion MRSA (PCR) - Final 11/17/24 18:30 Urine Catheter - Llanos Legionella Antigen - Final 11/17/24 18:30 Urine Catheter - Llanos Streptococcus pneumoniae Antigen (M - Final 11/17/24 13:20 Mucosa - Nose SARS-CoV-2, Influenza & RSV (PCR) - Final Physical Exam Narrative GENERAL: Patient appears ill looking HEENT: Atraumatic; normocephalic EYES; Anicteric, Normal Conjunctiva NECK; supple, normal thyroid, RESPIRATORY: Diminished to auscultation CARDIOVASCULAR: Regular S1 S2, GI: soft, normoactive bowel sounds, : No Renal angle tenderness; EXTREMITIES: No edema, no clubbing, MUSCULOSKELETAL: no muscle wasting NEURO: Awake; no lateralizing signs. SKIN: No Rash PSYCH; Flat affect Assessment & Plan Assessment/Plan (1) Septic shock: PLAN: Plan Patient is an 84-year-old lady who was admitted with progressive generalized weakness and low back pain imaging studies obtained on admission demonstrated bilateral airspace opacities compatible withpneumonitis/pneumonia. An assessment of septic shock secondary to pneumonia made admitted to the intensivecare unit for further management 1. Septic shock ? Secondary to pneumonia Patient presented with progressive generalized weakness was found to be hypotensive with elevated WBC count and elevated lactic acid levels. Patient was admitted to the intensive care unit managed with IV fluid resuscitation, broad- spectrum antibiotic therapy after cultures have been sent patient placed on Levophed and still remains on Levophed as of the morning of 11/18/2024. Response to therapy being monitored with serial lactic acid levels ?11/19/2024; patient was noted to have low urine output did receive fluid bolus ? 11/20/2024 2. Levophed was weaned off 2 days prior and subsequently transferredto the progressive care unit. Patient cultures so far negative to date 2. Abnormal urinalysis ? Patient did not have pyuria however had elevated leukocyte Estrace patient remains on broad-spectrum antibiotic therapy cultures pending -Patient has a Llanos catheter in place with some trace hematuria. Patient urinecultures apparently not sent on admission 3. Acute hypoxia ? Secondary to pneumonia management as discussed above patient was also placed on supplemental oxygen titrated to keep saturation greater than 90 4. Acute metabolic encephalopathy ? Multifactorial including patient septic shock hypoxia in addition patient was found to have hyperammonemia. Given the setting of impaired liver function did order lactulose ? 11/20/2024 patient continues to experience involuntary movement repeated ammonialevels. 5. Elevated troponin secondary to demand ischemia from septic shock -Patient with elevated troponin of 482 and proBNP of nearly 22,000, suspect thatthis is part of theendorgan damage from her septic shock. Patient being managed with serial troponins ordered 2D echo for EF assessment ? 11/20/2024; 2D echo obtained on 11/17/2024 did show The left ventricular ejectionfraction is 60 %. Normal LV size. The left atrium is severely enlarged. The right atrium is moderately enlarged. Mild (1+) tricuspid valve insufficiency. 6. Acute kidney injury ? Suspected to be secondary to ATN from septic shock. Baseline creatinine 0.7 creatinine on admission 2.45. Patient being managed with IV fluid with monitoring monitoring of response to therapy with serial BMP ; given the persistent impaired kidney function consult was placed to nephrology ?11/20/2024; patient kidney function continues to worsen nephrology on board 7. Acute transaminitis ? Secondary to shock liver. Repeated LFTs in a.m. for follow-up 8. Paroxysmal atrial fibrillation ? Rate controlled with atenolol which is currently being held given patient low blood pressure patient is also on systemic anticoagulation with rivaroxaban did continue 8. Essential hypertension ? Patient antihypertensives held given her presentation 9. Low back pain ? Imaging studies obtained demonstrated Mild compression of the inferior endplates, L3 and L4 may be related to remote trauma. Patient being managed with pain meds as well as muscle relaxant 10. Psoriatic arthritis -On Skyrizi every 3 month self injection 10. GERD -Continue home famotidine 11. DVT prophylaxis ? Already anticoagulated with rivaroxaban 12. Physical deconditioning ? Requested for PT OT eval and social security benefits interviewer to assist with discharge planning ? 11/21/2024; patient agrees [facility] being [facility] 13. Hypernatremia ? Started patient on 0.45 saline with repeat labs ordered in a.m. Time spent in the patient's overall evaluation,decision-making process, review of diagnostic data, adjustment of management, discussion with other providers, nursing nursing and ancillary staff involved in patient's care documentation, 50minutes Charges/Coding Visit Charges Inpatient E&M: 46888 Subs Hosp L3 11/21/24 1016 Cosigner Signature (if applicable): CC: ~ Signed [facility] [id number] Progress note [facility] Medical Records Department [address] [place] [address] Progress Note - Superintendent Power 11/21/24 0940 MR#: [id number] Acct: [id number] Name: LESLI ROSALES Rep #:[id number] : 1940 84 From: Gato Givens DO PCP: SILVIA GUTHRIE Status:ADM IN Location: [place] [id number] Assessment & Plan Assessment/Plan (1) Shock: PLAN: Plan RECOMMENDATIONS: 1. Continue supplemental oxygen for baseline requirement. 2. Continue Xarelto per home regimen. 3. Physical therapy to work with the patient. 4. Okay to discontinue antibiotics from my perspective. 5. Stress dose steroids will be discontinued today. 6. Recommend removal of central venous catheter. 7. Will sign off from a pulmonary/critical care perspective. Please call with any additional questions. IMPRESSIONS: 1. Undifferentiated shock While the patient initially was admitted to the hospital with septic shock presumed secondary to pneumonia, subsequent imaging of her chest failed to demonstrate any radiographic findings concerning for infection. Infectious workup from a culture perspective has been unrevealing to date. Therefore, I think it is far more likely that the patient's presenting symptoms and clinical presentation more likely the consequence of hypovolemic shock. An obstructive etiology, such as pulmonary embolism,seems highly unlikely, given that the patient is maintained on Xarelto as an outpatient. Additionally, surface echocardiogram revealed intact systolic function. Given negative culture data to date, Juan Carlos okay with discontinuing antibiotics. Given the patient's hemodynamic stability, we will discontinue stress dose steroids today. 2. Acute kidney injury Most likely prerenal in etiology. Avoid nephrotoxic medications. Continue to monitor urine output. No current indication for renal replacement therapy. Nephrology is following to assist with medical management. 3. Questionable history of COPD/chronic hypoxemic respiratory failure on 2 L/min/atrial fibrillation/low back pain Complicates care, management, recovery and prognosis. Continue supportive measures as noted above. This note was generated with TELOSation software. It may contain incorrectwords, spelling, and punctuation that were not noted in checking the note beforesigning. Subjective Subjective The patient was seen and examined at the bedside this morning. Events from the last 24 hours have been reviewed. The patient is currently afebrile, hemodynamically stable and maintaining appropriate oxygen saturations on 1 L/minvia nasal cannula. The patient still has ongoing pain related complaints. White blood cell count was noted to be 12,000 this morning. Creatinine is stable at 2.6. Given the patient's hemodynamic stability, stress dose steroids were discontinued. Objective Data Objective Data The patient's most recent lab work, culture data and imaging studies have all been personally reviewed. Respiratory viral panel was negative. Strep and urine Legionella antigens were negative. Blood cultures have not demonstrated any growth to date. Vital Signs: Vital Signs Temp Pulse Resp BP Pulse Ox O2 Del Method O2 Flow Rate 98.2 F 86 17 150/80 H 94 Nasal Cannula 1 11/21/24 09:00 11/21/24 09:00 11/21/24 09:00 11/21/24 09:00 11/21/24 09:00 11/21/24 09:00 11/21/24 09:00 Oxygen Flow Rate (L/min) 1 Oxygen Delivery Method Nasal Cannula Weight: 166 lb 7.184 oz Body Mass Index (BMI) 32.5 Intake & Output: Intake and Output for Last 24 Hours 11/19/24 11/20/24 11/21/24 23:59 23:59 23:59 Intake Total 2287.21 / 2487.21 1596 / 1696 150 / 150 Output Total 650 / 650 350 / 850 675 / 675 Balance 1637.21 / 1837.21 1246 / 846 -525 / -525 Lab / Micro Data Attestation: I reviewed the patient's lab results. 11/21/24 04:42 11/21/24 04:42 Labs: Laboratory Results - last 24 hr 11/21/24 04:42: WBC 12.6 H, RBC 4.44, Hgb 14.3, Hct 44.6, MCV 100.5 H, MCH 32.2 H, MCHC 32.1, RDW Std Deviation 52.2 H, RDW Coeff of Mildred 14.0, Plt Count 136 L, MPV 11.1, Immature Gran % (Auto) 0.500,Neut % (Auto) 80.1 H, Lymph % (Auto) 7.2L, [place] % (Auto) 11.9 H, Eos % (Auto) 0.1, Baso % (Auto) 0.2, Absolute Neuts (auto) 10.1 H, Absolute Lymphs (auto) 0.91, Nucleated RBC % 0, Sodium 148 H, Potassium 3.1 L, Chloride 114 H, Carbon Dioxide 22.2, Anion Gap 11, BUN 78 H, Creatinine 2.61 H, Estim Creat Clear Calc 14.82 L, Est GFR (MDRD) Non-Af 18 L, BUN/Creatinine Ratio 29.9 H, Glucose 87, Calcium8.5, Total Bilirubin 1.04, Direct Bilirubin 0.60 H, AST 40 H, ALT 141 H, Alkaline Phosphatase 141 H, Total Protein 5.4 L, Albumin 2.9 L, Globulin 2.5 Micro: Microbiology 11/17/24 13:37 Blood Culture (Wb) - Anticubital Left Blood Culture - Preliminary No growth in 48 hours. 11/17/24 13:37 Blood Culture (Wb) - Anticubital Right Blood Culture - Preliminary No growth in 48 hours. 11/17/24 18:55 Mucosa - Nasopharyngeal Respiratory Panel (PCR) - Final 11/17/24 18:30 Nasal Secretion MRSA (PCR) - Final 11/17/24 18:30 Urine Catheter - Llanos Legionella Antigen - Final 11/17/24 18:30 Urine Catheter - Llanos Streptococcus pneumoniae Antigen (M - Final 11/17/24 13:20 Mucosa - Nose SARS-CoV-2, Influenza & RSV (PCR) - Final Radiography Diagnostic Testing: Radiology Impression Echocardiogram 11/17/24 20:43 Interpretation Summary The left ventricular ejection fraction is 60 %. Normal LV size. The left atrium is severely enlarged. The right atrium is moderately enlarged. Mild (1+) tricuspid valve insufficiency. Ordering Physician: Lorna Salvador Performed By: Edi David RCS Physical Exam Const alert and no apparent distress General Appearance: cooperative HEENT normocephalic and head/scalp atraumatic Eyes EOMs intact bilaterally, conjunctivae normal and no scleral icterus Neck supple General: trachea midline and CVC in place Chest inspection of chest normal Resp normal respiratory effort Auscultation: Negative for rales, rhonchi or wheezes Cardio regular rate and regular rhythm GI normal to inspection, nondistended, normoactive bowel sounds Extremity no clubbing, cyanosis or edema Skin no rashes or lesions noted Neuro CN's II-XII intact bilaterally and moves all extremities Psych Mood & Affect: flat affect Charges/Coding Visit Charges Inpatient E&M: 73249 Subs Hosp L2 11/21/24 0942 Cosigner Signature (if applicable): CC: ~ [facility]04[facility]25 Progress note Author [facility] Note Date/Time November 20, 2024 10:3 6pm [facility] Medical Records Department [address] [place] [address] Progress Note - Hospitalist 11/20/242235 MR#: [id number] Acct: [id number] Name: LESLI ROSALES Rep #:[id number] : 1940 84 From: Farida Welch MD PCP: SILVIA GUTHRIE Status:ADM IN Location: [place] [address] Hospitalist Note Llanos with mildly blood tinged urine, not bright red blood, Hgb stable, continueto monitor. 11/20/242235 <Electronically signed by Farida Welch MD> Cosigner Signature (if applicable): CC: ~ Signed [facility] Work Phone: 1(913) 811-675804-02-2025 Progress note [facility] Medical Records Department [address] [place] [address] Progress Note - Hospitalist 11/20/242235 MR#: [id number] Acct: [id number] Name: LESLI ROSALES Rep #:[id number] : 1940 84 From: Farida Welch MD PCP: SILVIA GUTHRIE Status:ADM IN Location: [place] [address] Hospitalist Note Llanos with mildly blood tinged urine, not bright red blood, Hgb stable, continueto monitor. 11/20/242235 Cosigner Signature (if applicable): CC: ~ Signed [facility]04-02-2025 Progress note Author [facility] Note Date/Time November 20, 2024 9:31 am [facility] Medical Records Department [address] [place] [address] Progress Note - Superintendent Power 11/20/24 0902 MR#: [id number] Acct: [id number] Name: LESLI ROSALES Rep #:[id number] : 1940 84 From: Gato Chon PAULSON PCP: SILVIA GUTHRIE Status:ADM IN Location: [place] [address]- 1 Assessment & Plan Assessment/Plan (1) Shock: PLAN: Plan RECOMMENDATIONS: 1. Continue supplemental oxygen for baseline requirement. 2. Continue Xarelto per home regimen. 3. Physical therapy to work with the patient. 4. Okay to discontinue antibiotics from my perspective. 5. Stress dose steroids have been decreased. Will plan to discontinue completely tomorrow, if the patient remains stable. IMPRESSIONS: 1. Undifferentiated shock While the patient initially was admitted to the hospital with septic shock presumed secondary to pneumonia, subsequent imaging of her chest failed to demonstrate any radiographic findings concerning for infection. Infectious workup from a culture perspective has been unrevealing to date. Therefore, I think it is far more likely that the patient's presenting symptoms and clinical presentation more likely the consequence of hypovolemic shock. An obstructive etiology, such as pulmonary embolism, seems highly unlikely, given that the patient is maintained on Xarelto as an outpatient. Additionally, surface echocardiogram revealed intact systolic function. Given negative culture data to date, I am okay with discontinuing antibiotics. The patient remains hemodynamically stable. Will plan to decrease stress dose steroids today, with tentative plans to discontinue completely tomorrow. 2. Acute kidney injury Most likely prerenal in etiology. Avoid nephrotoxic medications. Continue to monitor urine output. No current indication for renal replacement therapy. Nephrology is following to assist with medical management. 3. Questionable history of COPD/chronic hypoxemic respiratory failure on 2 L/min/atrial fibrillation/low back pain Complicates care, management, recovery and prognosis. Continue supportive measures as noted above. This note was generated with TELOSation software. It may contain incorrectwords, spelling, and punctuation that were not noted in checking the note beforesigning. Subjective Subjective The patient was seen and examined at the bedside this morning. Events from the last 24 hours have been reviewed. The patient is currently afebrile, hemodynamically stable and maintaining appropriate oxygen saturations on 2 L/minvia nasal cannula. The patient is documented to be overall net +9.4 L for the hospitalization. White blood cell count is down to 12,000. Objective Data Objective Data The patient's most recent lab work, culture data and imaging studies have all been personally reviewed. Respiratory viral panel was negative. Strep and urine Legionella antigens were negative. Blood cultures have not demonstrated any growth to date. Vital Signs: Vital Signs Temp Pulse Resp BP Pulse Ox O2 Del Method O2 Flow Rate 98.3 F 77 18 138/90 H 94 Nasal Cannula 2 11/20/24 04:53 11/20/24 07:00 11/20/24 06:46 11/20/24 04:53 11/20/24 06:46 11/20/24 08:40 11/20/24 08:40 Oxygen Flow Rate (L/min) 2 Oxygen Delivery Method Nasal Cannula Weight: 160 lb 0.889 oz Body Mass Index (BMI) 31.2 Intake & Output: Intake and Output for Last 24 Hours 11/18/24 11/19/24 11/20/24 23:59 23:59 23:59 Intake Total 4168.08 / 4318.08 2287.21 / 2487.21 546 / 546 Output Total 305 / 455 650 / 650 350 / 350 Balance 3863.08 / 3863.08 1637.21 / 1837.21 196 / 196 Lab / Micro Data Attestation: I reviewed the patient's lab results. 11/20/24 06:25 11/20/24 06:25 Labs: Laboratory Results - last 24 hr 11/20/24 06:25: WBC 12.1 H, RBC 4.65, Hgb 15.0, Hct 47.4 H, MCV 101.9 H, MCH 32.3 H, MCHC 31.6 L, RDW Std Deviation 53.1 H, RDW Coeff of Mildred 14.0, Plt Count 153, MPV 11.2, Immature Gran % (Auto) 0.700, Neut % (Auto) 87.4 H, Lymph % (Auto) 5.4 L, [place] % (Auto) 6.4, Eos % (Auto) 0.0, Baso % (Auto) 0.1, Absolute Neuts (auto) 10.6 H, Absolute Lymphs (auto) 0.65 L, Nucleated RBC % 0, Sodium 145, Potassium 3.8, Chloride 112 H, Carbon Dioxide 20.6 L, Anion Gap 12, BUN 76 H, Creatinine 2.62 H, Estim Creat Clear Calc 14.47 L, Est GFR (MDRD) Non-Af 18 L, BUN/Creatinine Ratio 28.9 H, Glucose 123 H, Calcium 8.5, Total Bilirubin 0.86,Direct Bilirubin 0.48 H, AST 58 H, ALT 185 H, Alkaline Phosphatase 116 H, Total Protein 6.0, Albumin 3.3 L, Globulin 2.7 Micro: Microbiology 11/17/24 13:37 Blood Culture (Wb) - Anticubital Left Blood Culture - Preliminary No growth in 48 hours. 11/17/24 13:37 Blood Culture (Wb) - Anticubital Right Blood Culture - Preliminary No growth in 48 hours. 11/17/24 18:55 Mucosa - Nasopharyngeal Respiratory Panel (PCR) - Final 11/17/24 18:30 Nasal Secretion MRSA (PCR) - Final 11/17/24 18:30 Urine Catheter - [place] Legionella Antigen - Final 11/17/24 18:30 Urine Catheter - [place] Streptococcus pneumoniae Antigen (M - Final 11/17/24 13:20 Mucosa - Nose SARS-CoV-2, Influenza & RSV (PCR) - Final Radiography Diagnostic Testing: Radiology Impression Echocardiogram 11/17/24 20:43 Interpretation Summary The left ventricular ejection fraction is 60 %. Normal LV size. The left atrium is severely enlarged. The right atrium is moderately enlarged. Mild (1+) tricuspid valve insufficiency. Ordering Physician: Lorna Salvador Performed By: Edi David RCS Physical Exam Const alert and no apparent distress General Appearance: cooperative HEENT normocephalic and head/scalp atraumatic Eyes EOMs intact bilaterally, conjunctivae normal and no scleral icterus Neck supple General: trachea midline and CVC in place Chest inspection of chest normal Resp normal respiratory effort Auscultation: Negative for rales, rhonchi or wheezes Cardio regular rate and regular rhythm GI normal to inspection, nondistended, normoactive bowel sounds Extremity no clubbing, cyanosis or edema Skin no rashes or lesions noted Neuro CN's II-XII intact bilaterally and moves all extremities Psych Mood & Affect: flat affect Charges/Coding Visit Charges Inpatient E&M: 51735 Subs Hosp L2 11/20/24 0931 <Electronically signed by Gato Givens DO> Cosigner Signature (if applicable): CC: ~ [facility]igned [facility] Work Phone: 1(178) 545-798504-02-2025 Progress note Author [facility] Note Date/Time November 20, 2024 8:48 am [facility] Medical Records Department [address] [place] [address] Progress Note - Hospitalist 11/20/24 0841 MR#: [id number] Acct: [id number] Name: LESLI ROSALES Rep #:[id number] : 1940 84 From: Kevin Robles MD PCP: SILVIA GUTHRIE Status:ADM IN Location: [place] [address] Reason for Visit Reason for Visit: Diagnoses Sepsis, unspecified organism (11/17/24) Acute kidney failure, unspecified (11/17/24) Shock, unspecified (11/17/24) Severe sepsis with septic shock (11/17/24) Subjective Subjective Patient was transferred from intensive care unit to the progressive care unit following stabilization of her medical condition. Patient creatinine however continues to worsen. Consult had been placed to nephrology the previous day noted recommendations reviewed. Patient seen still remains significantly weak and involuntary movement persist. Repeated ammonia level Objective Data Objective Data Vital Signs: Vital Signs Temp Pulse Resp BP Pulse Ox O2 Del Method O2 Flow Rate 98.3 F 77 18 138/90 H 94 Nasal Cannula 2 11/20/24 04:53 11/20/24 07:00 11/20/24 06:46 11/20/24 04:53 11/20/24 06:46 11/20/24 06:46 11/20/24 06:46 Oxygen Flow Rate (L/min) 2 Oxygen Delivery Method Nasal Cannula Weight: 72.6 kg Body Mass Index (BMI) 31.2 Intake & Output: Intake and Output for Last 24 Hours 11/18/24 11/19/24 11/20/24 23:59 23:59 23:59 Intake Total 4168.08 / 4318.08 2287.21 / 2487.21 546 / 546 Output Total 305 / 455 650 / 650 350 / 350 Balance 3863.08 / 3863.08 1637.21 / 1837.21 196 / 196 Lab / Micro Data 11/20/24 06:25 11/20/24 06:25 Labs: Laboratory Results - last 24 hr 11/20/24 06:25: WBC 12.1 H, RBC 4.65, Hgb 15.0, Hct 47.4 H, MCV 101.9 H, MCH 32.3 H, MCHC 31.6 L, RDW Std Deviation 53.1 H, RDW Coeff of Mildred 14.0, Plt Count 153, MPV 11.2, Immature Gran % (Auto) 0.700, Neut % (Auto) 87.4 H, Lymph % (Auto) 5.4 L, [place] % (Auto) 6.4, Eos % (Auto) 0.0, Baso % (Auto) 0.1, Absolute Neuts (auto) 10.6 H, Absolute Lymphs (auto) 0.65 L, Nucleated RBC % 0, Sodium 145, Potassium 3.8, Chloride 112 H, Carbon Dioxide 20.6 L, Anion Gap 12, BUN 76 H, Creatinine 2.62 H, Estim Creat Clear Calc 14.47 L, Est GFR (MDRD) Non-Af 18 L, BUN/Creatinine Ratio 28.9 H, Glucose 123 H, Calcium 8.5, Total Bilirubin 0.86,Direct Bilirubin 0.48 H, AST 58 H, ALT 185 H, Alkaline Phosphatase 116 H, Total Protein 6.0, Albumin 3.3 L, Globulin 2.7 Micro: Microbiology 11/17/24 13:37 Blood Culture (Wb) - Anticubital Left Blood Culture - Preliminary No growth in 48 hours. 11/17/24 13:37 Blood Culture (Wb) - Anticubital Right Blood Culture - Preliminary No growth in 48 hours. 11/17/24 18:55 Mucosa - Nasopharyngeal Respiratory Panel (PCR) - Final 11/17/24 18:30 Nasal Secretion MRSA (PCR) - Final 11/17/24 18:30 Urine Catheter - [place] Legionella Antigen - Final 11/17/24 18:30 Urine Catheter - [place] Streptococcus pneumoniae Antigen (M - Final 11/17/24 13:20 Mucosa - Nose SARS-CoV-2, Influenza & RSV (PCR) - Final Physical Exam Narrative GENERAL: Patient appears ill looking HEENT: Atraumatic; normocephalic EYES; Anicteric, Normal Conjunctiva NECK; supple, normal thyroid, RESPIRATORY: Diminished to auscultation CARDIOVASCULAR: Regular S1 S2, GI: soft, normoactive bowel sounds, : No Renal angle tenderness; EXTREMITIES: No edema, no clubbing, MUSCULOSKELETAL: no muscle wasting NEURO: Awake; no lateralizing signs. SKIN: No Rash PSYCH; Flat affect Assessment & Plan Assessment/Plan (1) Septic shock: PLAN: Plan Patient is an 84-year-old lady who was admitted with progressive generalized weakness and low back pain imaging studies obtained on admission demonstrated bilateral airspace opacities compatible with pneumonitis/pneumonia. An assessment of septic shock secondary to pneumonia made admitted to the intensivecare unit for further management 1. Septic shock ? Secondary to pneumonia Patient presented with progressive generalized weakness was found to be hypotensive with elevated WBC count and elevated lactic acid levels. Patient was admitted to the intensive care unit managed with IV fluid resuscitation, broad-spectrum antibiotic therapy after cultures have been sent patient placed on Levophed and still remains on Levophed as of the morning of 11/18/2024. Response to therapy being monitored with serial lactic acid levels ?11/19/2024; patient was noted to have low urine output did receive fluid bolus ? 11/20/2024 2. Levophed was weaned off 2 days prior and subsequently transferredto the progressive care unit. Patient cultures so far negative to date 2. Abnormal urinalysis ? Patient did not have pyuria however had elevated leukocyte Estrace patient remains on broad-spectrum antibiotic therapy cultures pending 3. Acute hypoxia ? Secondary to pneumonia management as discussed above patient was also placed on supplemental oxygen titrated to keep saturation greater than 90 4. Acute metabolic encephalopathy ? Multifactorial including patient septic shock hypoxia in addition patient was found to have hyperammonemia. Given the setting of impaired liver function did order lactulose ? 11/20/2024 patient continues to experience involuntary movement repeated ammonialevels. 5. Elevated troponin secondary to demand ischemia from septic shock -Patient with elevated troponin of 482 and proBNP of nearly 22,000, suspect thatthis is part of the endorgan damage from her septic shock. Patient being managed with serial troponins ordered 2D echo for EF assessment ? 11/20/2024; 2D echo obtained on 11/17/2024 did show The left ventricular ejectionfraction is 60 %. Normal LV size. The left atrium is severely enlarged. The right atrium is moderately enlarged. Mild (1+) tricuspid valve insufficiency. 6. Acute kidney injury ? Suspected to be secondary to ATN from septic shock. Baseline creatinine 0.7 creatinine on admission 2.45. Patient being managed with IV fluid with monitoring monitoring of response to therapy with serial BMP ; given the persistent impaired kidney function consult was placed to nephrology ?11/20/2024; patient kidney function continues to worsen nephrology on board 7. Acute transaminitis ? Secondary to shock liver. Repeated LFTs in a.m. for follow-up 8. Paroxysmal atrial fibrillation ? Rate controlled with atenolol which is currently being held given patient low blood pressure patient is also on systemic anticoagulation with rivaroxaban did continue 8. Essential hypertension ? Patient antihypertensives held given her presentation 9. Low back pain ? Imaging studies obtained demonstrated Mild compression of the inferior endplates, L3 and L4 may be related to remote trauma. Patient being managed with pain meds as well as muscle relaxant 10. Psoriatic arthritis -On Skyrizi every 3 month self injection 10. GERD -Continue home famotidine 11. DVT prophylaxis ? Already anticoagulated with rivaroxaban 12. Physical deconditioning ? Requested for PT OT eval and social security benefits interviewer to assist with discharge planning Time spent in the patient's overall evaluation,decision-making process, review of diagnostic data, adjustment of management, discussion with other providers, nursing nursing and ancillary staff involved in patient's care documentation, 50minutes Charges/Coding Visit Charges Inpatient E&M: 79885 Subs Hosp L3 11/20/24 0820 <Electronically signed by Kevin Robles MD> Cosigner Signature (if applicable): CC: ~ [facility]igned [facility] Work Phone: 1(248) 103-301804-02-2025 Progress note [facility] Medical Records Department [address] [place] [address] Progress Note - Superintendent Power 11/20/24901 MR#: [id number] Acct: [id number] Name: LESLI ROSALES Rep #:[id number] : 1940 84 From: Gato Givens DO PCP: SILVIA GUTHRIE Status:ADM IN Location: [place] [id number]- [id number] Assessment & Plan Assessment/Plan (1) Shock: PLAN: Plan RECOMMENDATIONS: 1. Continue supplemental oxygen for baseline requirement. 2. Continue Xarelto per home regimen. 3. Physical therapy to work with the patient. 4. Okay to discontinue antibiotics from my perspective. 5. Stress dose steroids have been decreased. Will plan to discontinue completely tomorrow, if the patient remains stable. IMPRESSIONS: 1. Undifferentiated shock While the patient initially was admitted to the hospital with septic shock presumed secondary to pneumonia, subsequent imaging of her chest failed to demonstrate any radiographic findings concerning for infection. Infectious workup from a culture perspective has been unrevealing to date. Therefore, I think it is far more likely that the patient's presenting symptoms and clinical presentation more likely the consequence of hypovolemic shock. An obstructive etiology, such as pulmonary embolism,seems highly unlikely, given that the patient is maintained on Xarelto as an outpatient. Additionally, surface echocardiogram revealed intact systolic function. Given negative culture data to date, Juan Carlos okay with discontinuing antibiotics. The patient remains hemodynamically stable. Will plan to decrease stress dose steroids today, with tentative plans to discontinue completely tomorrow. 2. Acute kidney injury Most likely prerenal in etiology. Avoid nephrotoxic medications. Continue to monitor urine output. No current indication for renal replacement therapy. Nephrology is following to assist with medical management. 3. Questionable history of COPD/chronic hypoxemic respiratory failure on 2 L/min/atrial fibrillation/low back pain Complicates care, management, recovery and prognosis. Continue supportive measures as noted above. This note was generated with TELOSation software. It may contain incorrectwords, spelling, and punctuation that were not noted in checking the note beforesigning. Subjective Subjective The patient was seen and examined at the bedside this morning. Events from the last 24 hours have been reviewed. The patient is currently afebrile, hemodynamically stable and maintaining appropriate oxygen saturations on 2 L/minvia nasal cannula. The patient is documented to be overall net +9.4 L for the hospitalization. White blood cell count is down to 12,000. Objective Data Objective Data The patient's most recent lab work, culture data and imaging studies have all been personally reviewed. Respiratory viral panel was negative. Strep and urine Legionella antigens were negative. Blood cultures have not demonstrated any growth to date. Vital Signs: Vital Signs Temp Pulse Resp BP Pulse Ox O2 Del Method O2 Flow Rate 98.3 F 77 18 138/90 H 94 Nasal Cannula 2 11/20/24 04:53 11/20/24 07:00 11/20/24 06:46 11/20/24 04:53 11/20/24 06:46 11/20/24 08:40 11/20/24 08:40 Oxygen Flow Rate (L/min) 2 Oxygen Delivery Method Nasal Cannula Weight: 160 lb 0.889 oz Body Mass Index (BMI) 31.2 Intake & Output: Intake and Output for Last 24 Hours 11/18/24 11/19/24 11/20/24 23:59 23:59 23:59 Intake Total 4168.08 / 4318.08 2287.21 / 2487.21 546 / 546 Output Total 305 / 455 650 / 650 350 / 350 Balance 3863.08 / 3863.08 1637.21 / 1837.21 196 / 196 Lab / Micro Data Attestation: I reviewed the patient's lab results. 11/20/24 06:25 11/20/24 06:25 Labs: Laboratory Results - last 24 hr 11/20/24 06:25: WBC 12.1 H, RBC 4.65, Hgb 15.0, Hct 47.4 H, MCV 101.9 H, MCH 32.3 H, MCHC 31.6 L, RDW Std Deviation 53.1 H, RDW Coeff of Mildred 14.0, Plt Count 153, MPV 11.2, Immature Gran % (Auto) 0.700, Neut % (Auto) 87.4 H, Lymph % (Auto) 5.4 L, [place] % (Auto) 6.4, Eos % (Auto) 0.0, Baso % (Auto) 0.1, Absolute Neuts (auto) 10.6 H, Absolute Lymphs (auto) 0.65 L, Nucleated RBC % 0, Sodium 145, Potassium 3.8, Chloride 112 H, Carbon Dioxide 20.6 L, Anion Gap 12, BUN 76 H, Creatinine 2.62 H, Estim Creat Clear Calc 14.47 L, Est GFR (MDRD) Non-Af 18 L, BUN/Creatinine Ratio 28.9 H, Glucose 123 H, Calcium 8.5, Total Bilirubin 0.86,Direct Bilirubin 0.48 H, AST 58 H, ALT 185 H, Alkaline Phosphatase 116H, Total Protein 6.0, Albumin 3.3 L, Globulin 2.7 Micro: Microbiology 11/17/24 13:37 Blood Culture (Wb) - Anticubital Left Blood Culture - Preliminary No growth in 48 hours. 11/17/24 13:37 Blood Culture (Wb) - Anticubital Right Blood Culture - Preliminary No growth in 48 hours. 11/17/24 18:55 Mucosa - Nasopharyngeal Respiratory Panel (PCR) - Final 11/17/24 18:30 Nasal Secretion MRSA (PCR) - Final 11/17/24 18:30 Urine Catheter - [place] Legionella Antigen - Final 11/17/24 18:30 Urine Catheter - [place] Streptococcus pneumoniae Antigen (M - Final 11/17/24 13:20 Mucosa - Nose SARS-CoV-2, Influenza & RSV (PCR) - Final Radiography Diagnostic Testing: Radiology Impression Echocardiogram 11/17/24 20:43 Interpretation Summary The left ventricular ejection fraction is 60 %. Normal LV size. The left atrium is severely enlarged. The right atrium is moderately enlarged. Mild (1+) tricuspid valve insufficiency. Ordering Physician: Lorna Salvador Performed By: Edi David RCS Physical Exam Const alert and no apparent distress General Appearance: cooperative HEENT normocephalic and head/scalp atraumatic Eyes EOMs intact bilaterally, conjunctivae normal and no scleral icterus Neck supple General: trachea midline and CVC in place Chest inspection of chest normal Resp normal respiratory effort Auscultation: Negative for rales, rhonchi or wheezes Cardio regular rate and regular rhythm GI normal to inspection, nondistended, normoactive bowel sounds Extremity no clubbing, cyanosis or edema Skin no rashes or lesions noted Neuro CN's II-XII intact bilaterally and moves all extremities Psych Mood & Affect: flat affect Charges/Coding Visit Charges Inpatient E&M: 13386 Subs Hosp L2 11/20/24 0931 Cosigner Signature (if applicable): CC: ~ [facility]igned [facility]04[facility]25 Progress note [facility] Medical Records Department [address] [place] [address] Progress Note - Hospitalist 11/20/24 0841 MR#: [id number] Acct: [id number] Name: LESLI ROSALES Rep #:[id number] : 1940 84 From: Kevin Robles MD PCP: SILVIA GUTHRIE Status:ADM IN Location: [address] 1 Reason for Visit Reason for Visit: Diagnoses Sepsis, unspecified organism (11/17/24) Acute kidney failure, unspecified (11/17/24) Shock, unspecified (11/17/24) Severe sepsis with septic shock (11/17/24) Subjective Subjective Patient was transferred from intensive care unit to the progressive care unit following stabilization of her medical condition. Patient creatinine however continues to worsen. Consult had been placedto nephrology the previous day noted recommendations reviewed. Patient seen still remains significantly weak and involuntary movement persist. Repeated ammonia level Objective Data Objective Data Vital Signs: Vital Signs Temp Pulse Resp BP Pulse Ox O2 Del Method O2 Flow Rate 98.3 F 77 18 138/90 H 94 Nasal Cannula 2 11/20/24 04:53 11/20/24 07:00 11/20/24 06:46 11/20/24 04:53 11/20/24 06:46 11/20/24 06:46 11/20/24 06:46 Oxygen Flow Rate (L/min) 2 Oxygen Delivery Method Nasal Cannula Weight: 72.6 kg Body Mass Index (BMI) 31.2 Intake & Output: Intake and Output for Last 24 Hours 11/18/24 11/19/24 11/20/24 23:59 23:59 23:59 Intake Total 4168.08 / 4318.08 2287.21 / 2487.21 546 / 546 Output Total 305 / 455 650 / 650 350 / 350 Balance 3863.08 / 3863.08 1637.21 / 1837.21 196 / 196 Lab / Micro Data 11/20/24 06:25 11/20/24 06:25 Labs: Laboratory Results - last 24 hr 11/20/24 06:25: WBC 12.1 H, RBC 4.65, Hgb 15.0, Hct 47.4 H, MCV 101.9 H, MCH 32.3 H, MCHC 31.6 L, RDW Std Deviation 53.1 H, RDW Coeff of Mildred 14.0, Plt Count 153, MPV 11.2, Immature Gran % (Auto) 0.700, Neut % (Auto) 87.4 H, Lymph % (Auto) 5.4 L, [place] % (Auto) 6.4, Eos % (Auto) 0.0, Baso % (Auto) 0.1, Absolute Neuts (auto) 10.6 H, Absolute Lymphs (auto) 0.65 L, Nucleated RBC % 0, Sodium 145, Potassium 3.8, Chloride 112 H, Carbon Dioxide 20.6 L, Anion Gap 12, BUN 76 H, Creatinine 2.62 H, Estim Creat Clear Calc 14.47 L, Est GFR (MDRD) Non-Af 18 L, BUN/Creatinine Ratio 28.9 H, Glucose 123 H, Calcium 8.5, Total Bilirubin 0.86,Direct Bilirubin 0.48 H, AST 58 H, ALT 185 H, Alkaline Phosphatase 116H, Total Protein 6.0, Albumin 3.3 L, Globulin 2.7 Micro: Microbiology 11/17/24 13:37 Blood Culture (Wb) - Anticubital Left Blood Culture - Preliminary No growth in 48 hours. 11/17/24 13:37 Blood Culture (Wb) - Anticubital Right Blood Culture - Preliminary No growth in 48 hours. 11/17/24 18:55 Mucosa - Nasopharyngeal Respiratory Panel (PCR) - Final 11/17/24 18:30 Nasal Secretion MRSA (PCR) - Final 11/17/24 18:30 Urine Catheter - Llanos Legionella Antigen - Final 11/17/24 18:30 Urine Catheter - Llanos Streptococcus pneumoniae Antigen (M - Final 11/17/24 13:20 Mucosa - Nose SARS-CoV-2, Influenza & RSV (PCR) - Final Physical Exam Narrative GENERAL: Patient appears ill looking HEENT: Atraumatic; normocephalic EYES; Anicteric, Normal Conjunctiva NECK; supple, normal thyroid, RESPIRATORY: Diminished to auscultation CARDIOVASCULAR: Regular S1 S2, GI: soft, normoactive bowel sounds, : No Renal angle tenderness; EXTREMITIES: No edema, no clubbing, MUSCULOSKELETAL: no muscle wasting NEURO: Awake; no lateralizing signs. SKIN: No Rash PSYCH; Flat affect Assessment & Plan Assessment/Plan (1) Septic shock: PLAN: Plan Patient is an 84-year-old lady who was admitted with progressive generalized weakness and low back pain imaging studies obtained on admission demonstrated bilateral airspace opacities compatible withpneumonitis/pneumonia. An assessment of septic shock secondary to pneumonia made admitted to the intensivecare unit for further management 1. Septic shock ? Secondary to pneumonia Patient presented with progressive generalized weakness was found to be hypotensive with elevated WBC count and elevated lactic acid levels. Patient was admitted to the intensive care unit managed with IV fluid resuscitation, broad- spectrum antibiotic therapy after cultures have been sent patient placed on Levophed and still remains on Levophed as of the morning of 11/18/2024. Response to therapy being monitored with serial lactic acid levels ?11/19/2024; patient was noted to have low urine output did receive fluid bolus ? 11/20/2024 2. Levophed was weaned off 2 days prior and subsequently transferredto the progressive care unit. Patient cultures so far negative to date 2. Abnormal urinalysis ? Patient did not have pyuria however had elevated leukocyte Estrace patient remains on broad-spectrum antibiotic therapy cultures pending 3. Acute hypoxia ? Secondary to pneumonia management as discussed above patient was also placed on supplemental oxygen titrated to keep saturation greater than 90 4. Acute metabolic encephalopathy ? Multifactorial including patient septic shock hypoxia in addition patient was found to have hyperammonemia. Given the setting of impaired liver function did order lactulose ? 11/20/2024 patient continues to experience involuntary movement repeated ammonialevels. 5. Elevated troponin secondary to demand ischemia from septic shock -Patient with elevated troponin of 482 and proBNP of nearly 22,000, suspect thatthis is part of theendorgan damage from her septic shock. Patient being managed with serial troponins ordered 2D echo for EF assessment ? 11/20/2024; 2D echo obtained on 11/17/2024 did show The left ventricular ejectionfraction is 60 %. Normal LV size. The left atrium is severely enlarged. The right atrium is moderately enlarged. Mild (1+) tricuspid valve insufficiency. 6. Acute kidney injury ? Suspected to be secondary to ATN from septic shock. Baseline creatinine 0.7 creatinine on admission 2.45. Patient being managed with IV fluid with monitoring monitoring of response to therapy with serial BMP ; given the persistent impaired kidney function consult was placed to nephrology ?11/20/2024; patient kidney function continues to worsen nephrology on board 7. Acute transaminitis ? Secondary to shock liver. Repeated LFTs in a.m. for follow-up 8. Paroxysmal atrial fibrillation ? Rate controlled with atenolol which is currently being held given patient low blood pressure patient is also on systemic anticoagulation with rivaroxaban did continue 8. Essential hypertension ? Patient antihypertensives held given her presentation 9. Low back pain ? Imaging studies obtained demonstrated Mild compression of the inferior endplates, L3 and L4 may be related to remote trauma. Patient being managed with pain meds as well as muscle relaxant 10. Psoriatic arthritis -On Skyrizi every 3 month self injection 10. GERD -Continue home famotidine 11. DVT prophylaxis ? Already anticoagulated with rivaroxaban 12. Physical deconditioning ? Requested for PT OT eval and social security benefits interviewer to assist with discharge planning Time spent in the patient's overall evaluation,decision-making process, review of diagnostic data, adjustment of management, discussion with other providers, nursing nursing and ancillary staff involved in patient's care documentation, 50minutes Charges/Coding Visit Charges Inpatient E&M: 09374 Subs Hosp L3 11/20/24 0848 Cosigner Signature (if applicable): CC: ~ [facility]igned [facility]04[facility]25 Consult note Author Izabel Arias [facility] Note Date/Time November 19, 2024 6:34 pm [facility] Medical Records Department [address] [place] [address] Consultation - Nephrology 11/19/24 5662 MR#: [id number] Acct: [id number] Name: LESLI ROSALES Rep #:[id number] : 1940 84 From: Izabel harvey MD PCP: SILVIA GUTHRIE Status:ADM IN Location: [place] [address] Assessment & Plan Assessment/Plan (1) NAT (acute kidney injury): PLAN: Baseline creatinine was normal but that was about 2 years ago. Creatinine2.4. Clinically she looks dry. No evidence of obstruction, Llanos indwelling. IV fluids for today. Discussed with primary service. HPI Consult Data Date of Consult: 11/19/24 HPI Narrative Reason for Consultation: NAT HPI Narrative: LESLI ROSALES, is a 84 F who is admitted to ICU with shock. nephrology on consult in view of NAT. low dose pressors. Creatinine 2.4. Previous creatinine was normal but last set of labs were from couple of years ago. Currently has anindwelling Llanos catheter. Urine output is present. Unclear etiology of shock. Ammonia level was found to be significantly elevated. [facility] Medical History (Updated 11/19/24 @ 18:[address] Izabel Arias MD) Anxiety Depression Chronic pain GERD (gastroesophageal reflux disease) On home oxygen therapy Atrial fibrillation Congestive heart failure (CHF) Hypertension Shingles Psoriatic arthritis COPD (chronic obstructive pulmonary disease) A-fib Home Medications ?Medication ?Instructions ?Recorded ?Last Taken ?Type atenolol 25 mg tablet 25 mg PO DAILY 06/26/21 Unkn own History famotidine 20 mg tablet 20 mg PO DAILY 06/26/21 Unkn own History folic acid 1 mg tablet 1 mg PO DAILY supplement 02/08 Unknown History Held on 11/18/24. Instructions: Pt has been DC'd ipratropium bromide 0.02 % 2 ml inhalation DAILY 06/26 Unknown History solution for inhalation rivaroxaban 20 mg tablet (Xarelto) 20 mg PO DAILY 02/08 Unknown History amitriptyline 25 mg tablet 25 mg PO QHS 11/17/24 Unkno wn History cholecalciferol (vitamin D3) 50 50 mcg PO DAILY Unknown History mcg (2,000 unit) capsule furosemide 20 mg tablet 20 mg PO DAILY 11/17/24 Unkn own History albuterol sulfate 90 mcg/actuation 2 puff inhalation Q 6H PRN PRN 11/18/24 Unknown History aerosol inhaler dyspnea oxycodone-acetaminophen 5 mg-325 1 tab PO TID PRN PRN pain 11/18/24 Unknown History mg tablet tiotropium bromide 18 mcg capsule 1 cap inhalation PRN shortness of 11/18/24 Unknown History with inhalation device (Spiriva breath with HandiHaler) Allergy/AdvReac Type Severity Reaction Status Date / Time No Known Allergies Allergy Verified 11/17/24 12:43 Surgical History History of partial hysterectomy History of bladder suspension procedure History of appendectomy History of cholecystectomy H/O hernia repair Social History household members: none Smoking Status: Former smoker substance use type: does not use ROS ROS Narrative negative except above Physical Exam Narrative sleepy no obvious distress no pallor no icterus no JVD s1s2 no murmurs lungs clear abdomen soft no organomegaly no edema no cyanosis llanos + Lab / Micro Data 11/19/24 04:18 11/19/24 04:18 Labs: Laboratory Results - last 24 hr 11/19/24 04:18: WBC 14.6 H, RBC 4.43, Hgb 14.5, Hct 45.3, MCV 102.3 H, MCH 32.7 H, MCHC 32.0, RDW Std Deviation 52.5 H, RDW Coeff of Mildred 13.9, Plt Count 154, MPV 10.9, Immature Gran % (Auto) 0.700, Neut % (Auto) 79.5 H, Lymph % (Auto) 8.9L, [place] % (Auto) 10.8 H, Eos % (Auto) 0.0, Baso % (Auto) 0.1, Absolute Neuts (auto) 11.6 H, Absolute Lymphs (auto) 1.29, Nucleated RBC % 0, Differential Comment SCANNED, Diff Path Review December, Sodium 146 H, Potassium 4.1, Chloride 113 H, Carbon Dioxide 21.0, Anion Gap 12, BUN 69 H, Creatinine 2.42 H, Estim Creat Clear Calc 15.57 L, Est GFR (MDRD) Non-Af 19 L, BUN/Creatinine Ratio 28.3 H, Glucose 105 H, Calcium 8.5, Phosphorus 5.8 H, Magnesium 2.2, Total Bilirubin 0.65, Direct Bilirubin 0.38 H, AST 86 H, ALT 212 H, Alkaline Phosphatase 107 H, Total Protein 5.6 L, Albumin 3.1 L, Globulin 2.5 Micro: Microbiology 11/17/24 13:37 Blood Culture (Wb) - Anticubital Left Blood Culture - Preliminary No growth in 48 hours. 11/17/24 13:37 Blood Culture (Wb) - Anticubital Right Blood Culture - Preliminary No growth in 48 hours. 11/19/24 1834 <Electronically signed by Izabel Arias MD> Cosigner Signature (if applicable): CC: SILVIA GUTHRIE~ [facility]igned [facility] Work Phone: 1(417) 443-542304-01-2025 Consult note [facility] Medical Records Department [address] [place] [address] Consultation - Nephrology 11/19/24 1827 MR#: [id number] Acct: [id number] Name: LESLI ROSALES Rep #:[id number] : 1940 84 From: Izabel harvey MD PCP: SILVIA GUTHRIE Status:AD[facility] Assessment & Plan Assessment/Plan (1) NAT (acute kidney injury): PLAN: Baseline creatinine was normal but that was about 2 years ago. Creatinine2.4. Clinically she looks dry. No evidence of obstruction, Llanos indwelling. IV fluids for today. Discussed with primaryservice. HPI Consult Data Date of Consult: 11/19/24 HPI Narrative Reason for Consultation: NAT HPI Narrative: LESLI ROSALES, is a 84 F who is admitted to ICU with shock. nephrology on consult in view of NAT. low dose pressors. Creatinine 2.4. Previous creatinine was normal but last set of labs were from couple of years ago. Currently has anindwelling Llanos catheter. Urine output is present. Unclear etiology of shock. Ammonia level was found to be significantly elevated. [facility] Medical History (Updated 11/19/24 @ 18:[address] Izabel Arias MD) Anxiety Depression Chronic pain GERD (gastroesophageal reflux disease) On home oxygen therapy Atrial fibrillation Congestive heart failure (CHF) Hypertension Shingles Psoriatic arthritis COPD (chronic obstructive pulmonary disease) A-fib Home Medications ?Medication ?Instructions ?Recorded ?Last Taken ?Type atenolol 25 mg tablet 25 mg PO DAILY 06/26/21 Unkn own History famotidine 20 mg tablet 20 mg PO DAILY 06/26/21 Unkn own History folic acid 1 mg tablet 1 mg PO DAILY supplement 02/08 Unknown History Held on 11/18/24. Instructions: Pt has been DC'd ipratropium bromide 0.02 % 2 ml inhalation DAILY 06/26 Unknown History solution for inhalation rivaroxaban 20 mg tablet (Xarelto) 20 mg PO DAILY 02/08 Unknown History amitriptyline 25 mg tablet 25 mg PO QHS 11/17/24 Unkno wn History cholecalciferol (vitamin D3) 50 50 mcg PO DAILY Unknown History mcg (2,000 unit) capsule furosemide 20 mg tablet 20 mg PO DAILY 11/17/24 Unkn own History albuterol sulfate 90 mcg/actuation 2 puff inhalation Q 6H PRN PRN 11/18/24 Unknown History aerosol inhaler dyspnea oxycodone-acetaminophen 5 mg-325 1 tab PO TID PRN PRN pain 11/18/24 Unknown History mg tablet tiotropium bromide 18 mcg capsule 1 cap inhalation PRN shortness of 11/18/24 Unknown History with inhalation device (Spiriva breath with HandiHaler) Allergy/AdvReac Type Severity Reaction Status Date / Time No Known Allergies Allergy Verified 11/17/24 12:43 Surgical History History of partial hysterectomy History of bladder suspension procedure History of appendectomy History of cholecystectomy H/O hernia repair Social History household members: none Smoking Status: Former smoker substance use type: does not use ROS ROS Narrative negative except above Physical Exam Narrative sleepy no obvious distress no pallor no icterus no JVD s1s2 no murmurs lungs clear abdomen soft no organomegaly no edema no cyanosis llanos + Lab / Micro Data 11/19/24 04:18 11/19/24 04:18 Labs: Laboratory Results - last 24 hr 11/19/24 04:18: WBC 14.6 H, RBC 4.43, Hgb 14.5, Hct 45.3, MCV 102.3 H, MCH 32.7 H, MCHC 32.0, RDW Std Deviation 52.5 H, RDW Coeff of Mildred 13.9, Plt Count 154, MPV 10.9, Immature Gran % (Auto) 0.700, Neut % (Auto) 79.5 H, Lymph % (Auto) 8.9L, [place] % (Auto) 10.8 H, Eos % (Auto) 0.0, Baso % (Auto) 0.1,Absolute Neuts (auto) 11.6 H, Absolute Lymphs (auto) 1.29, Nucleated RBC % 0, Differential Comment SCANNED, Diff Path Review December, Sodium 146 H, Potassium 4.1, Chloride 113 H, Carbon Dioxide 21.0, Anion Gap 12, BUN 69 H, Creatinine 2.42 H, Estim Creat Clear Calc 15.57 L, Est GFR (MDRD) Non-Af 19 L, BUN/Creatinine Ratio 28.3 H, Glucose 105 H, Calcium 8.5, Phosphorus 5.8 H, Magnesium 2.2, Total Bilirubin 0.65, Direct Bilirubin 0.38 H, AST 86 H, ALT 212 H, Alkaline Phosphatase 107 H, Total Protein 5.6 L, Albumin 3.1 L, Globulin 2.5 Micro: Microbiology 11/17/24 13:37 Blood Culture (Wb) - Anticubital Left Blood Culture - Preliminary No growth in 48 hours. 11/17/24 13:37 Blood Culture (Wb) - Anticubital Right Blood Culture - Preliminary No growth in 48 hours. 11/19/24 5514 Cosigner Signature (if applicable): CC: SILVIA GUTHRIE~ [facility]04-01-[facility]25 Progress note Author Gato Givens [facility] Note Date/Time November 19, 2024 9:56 am [facility] Medical Records Department [address] [place] [address] Progress Note - Superintendent Power 11/19/24 0740 MR#: [id number] Acct: [id number] Name: LESLI ROSALES Rep #:[id number] : 1940 84 From: Gato Givens DO PCP: GUTHRIE,SILVIA Status:ADM IN Location: ICU ICU04-1 Assessment & Plan Assessment/Plan (1) Shock: PLAN: Plan RECOMMENDATIONS: 1. Dietary advancement per speech therapy. 2. Continue supplemental oxygen for baseline requirement. 3. Continue Xarelto per home regimen. 4. Physical therapy to work with the patient. 5. If cultures remain negative over the next 24 to 48 hours, will discontinue antibiotics. 6. Will begin to wean stress dose steroids beginning tomorrow, if the patient remains hemodynamically stable. IMPRESSIONS: 1. Undifferentiated shock While the patient initially was admitted to the hospital with septic shock presumed secondary to pneumonia, subsequent imaging of her chest failed to demonstrate any radiographic findings concerning for infection. While blood cultures are still pending, no other definitive source of infection has yet to be identified. Alternatively, given the patient's limited p.o. intake and hemoconcentrated labs, I suspect that the etiology for her shock is likely hypovolemic in nature. An obstructive etiology, such as pulmonary embolism, seems highly unlikely, given that the patient is maintained on Xarelto as an outpatient. Additionally, surface echocardiogram revealed intact systolic function. Given that cultures are still pending, we will plan to continue empiric antimicrobials. Nevertheless, if there are no positive cultures over the next 24 to 48 hours, I would plan to discontinue antibiotics. 2. Acute kidney injury Most likely prerenal in etiology. Continue gentle IV fluid hydration. Avoid nephrotoxic medications. Continue to monitor urine output. No current indication for renal replacement therapy. 3. Questionable history of COPD/chronic hypoxemic respiratory failure on 2 L/min/atrial fibrillation/low back pain Complicates care, management, recovery and prognosis. Continue supportive measures as noted above. This note was generated with uma information technology dictation software. It may contain incorrectwords, spelling, and punctuation that were not noted in checking the note beforesigning. Subjective Subjective The patient was seen and examined at the bedside this morning. Events from the last 24 hours have been reviewed. The patient is currently afebrile, hemodynamically stable and maintaining appropriate oxygen saturations on 3 L/minvia nasal cannula. The patient was able to be weaned off of Levophed completelyearly this morning. She is currently documented to be overall net +9 L for the hospitalization. White blood cell count has improved to 14,000. Creatinine is relatively stable at 2.42. Objective Data Objective Data The patient's most recent lab work, culture data and imaging studies have all been personally reviewed. Respiratory viral panel was negative. Strep and urine Legionella antigens were negative. Blood cultures are currently pending. Vital Signs: Vital Signs Temp Pulse Resp BP Pulse Ox O2 Del Method O2 Flow Rate 97.5 F L 73 17 98/63 98 Nasal Cannula 3 11/19/24 06:08 11/19/24 07:00 11/19/24 07:00 11/19/24 07:00 11/19/24 07:00 11/19/24 07:00 11/19/24 07:00 Oxygen Flow Rate (L/min) 3 Oxygen Delivery Method Nasal Cannula Weight: 159 lb 6.307 oz Body Mass Index (BMI) 31.1 Intake & Output: Intake and Output for Last 24 Hours 11/17/24 11/18/24 11/19/24 23:59 23:59 23:59 Intake Total 3777.36 / 3814.86 4168.08 / 4318.08 1585.54 / 1585.54 Output Total 305 / 455 150 / 150 Balance 3747.36 / 3784.86 3863.08 / 3863.08 1435.54 / 1435.54 Lab / Micro Data Attestation: I reviewed the patient's lab results. 11/19/24 04:18 11/19/24 04:18 Labs: Laboratory Results - last 24 hr 11/18/24 14:10: Ammonia 117.0 H 11/19/24 04:18: WBC 14.6 H, RBC 4.43, Hgb 14.5, Hct 45.3, MCV 102.3 H, MCH 32.7 H, MCHC 32.0, RDW Std Deviation 52.5 H, RDW Coeff of Mildred 13.9, Plt Count 154, MPV 10.9, Immature Gran % (Auto) 0.700, Neut % (Auto) 79.5 H, Lymph % (Auto) 8.9L, [place] % (Auto) 10.8 H, Eos % (Auto) 0.0, Baso % (Auto) 0.1, Absolute Neuts (auto) 11.6 H, Absolute Lymphs (auto) 1.29, Nucleated RBC % 0, Differential Comment SCANNED, Diff Path Review December, Sodium 146 H, Potassium 4.1, Chloride 113 H, Carbon Dioxide 21.0, Anion Gap 12, BUN 69 H, Creatinine 2.42 H, Estim Creat Clear Calc 15.57 L, Est GFR (MDRD) Non-Af 19 L, BUN/Creatinine Ratio 28.3 H, Glucose 105 H, Calcium 8.5, Phosphorus 5.8 H, Magnesium 2.2, Total Bilirubin 0.65, Direct Bilirubin 0.38 H, AST 86 H, ALT 212 H, Alkaline Phosphatase 107 H, Total Protein 5.6 L, Albumin 3.1 L, Globulin 2.5 Micro: Microbiology 11/17/24 18:55 Mucosa - Nasopharyngeal Respiratory Panel (PCR) - Final 11/17/24 18:30 Nasal Secretion MRSA (PCR) - Final 11/17/24 18:30 Urine Catheter - Llanos Legionella Antigen - Final 11/17/24 18:30 Urine Catheter - Llanos Streptococcus pneumoniae Antigen (M - Final 11/17/24 13:20 Mucosa - Nose SARS-CoV-2, Influenza & RSV (PCR) - Final Radiography Diagnostic Testing: Radiology Impression Echocardiogram 11/17/24 20:43 Interpretation Summary The left ventricular ejection fraction is 60 %. Normal LV size. The left atrium is severely enlarged. The right atrium is moderately enlarged. Mild (1+) tricuspid valve insufficiency. Ordering Physician: Lorna Salvador Performed By: Edi David RCS Physical Exam Const alert and no apparent distress General Appearance: cooperative HEENT normocephalic and head/scalp atraumatic Eyes EOMs intact bilaterally, conjunctivae normal and no scleral icterus Neck supple General: trachea midline Chest inspection of chest normal Resp normal respiratory effort Auscultation: Negative for rales, rhonchi or wheezes Cardio regular rate and regular rhythm GI normal to inspection, nondistended, normoactive bowel sounds Extremity no clubbing, cyanosis or edema Skin no rashes or lesions noted Neuro CN's II-XII intact bilaterally and moves all extremities Psych Mood & Affect: flat affect Charges/Coding Visit Charges Inpatient E&M: 12178 Subs Hosp L3 11/19/24 0956 <Electronically signed by Gato Givens DO> Cosigner Signature (if applicable): CC: ~ [facility]igned [facility] Work Phone: 1(491) 799-871504-01-2025 Progress note Author [facility] Note Date/Time November 19, 2024 8:32 am [facility] Medical Records Department [address] [place] [address] Progress Note - Hospitalist 11/19/24 0717 MR#: [id number] Acct: [id number] Name: LESLI ROSALES Rep #:[id number] : 1940 84 From: Kevin Robles MD PCP: SILVIA GUTHRIE Status:ADM IN Location: ICU ICU-1 Reason for Visit Reason for Visit: Diagnoses Sepsis, unspecified organism (11/17/24) Shock, unspecified (11/17/24) Severe sepsis with septic shock (11/17/24) Subjective Subjective Patient seen much more awake and intact compared to previous day. Patient was found to have significant tremors the day prior ammonia levels obtained came back markedly elevated patient subsequently started on lactulose. Patient was also found to have decreased urinary output and had to be given fluid resuscitation. Patient has since been weaned off Levophed Objective Data Objective Data Vital Signs: Vital Signs Temp Pulse Resp BP Pulse Ox O2 Del Method O2 Flow Rate 97.5 F L 73 17 98/63 98 Nasal Cannula 3 11/19/24 06:08 11/19/24 07:00 11/19/24 07:00 11/19/24 07:00 11/19/24 07:00 11/19/24 07:00 11/19/24 07:00 Oxygen Flow Rate (L/min) 3 Oxygen Delivery Method Nasal Cannula Weight: 72.3 kg Body Mass Index (BMI) 31.1 Intake & Output: Intake and Output for Last 24 Hours 11/17/24 11/18/24 11/19/24 23:59 23:59 23:59 Intake Total 3777.36 / 3814.86 4168.08 / 4318.08 1585.54 / 1585.54 Output Total 305 / 455 150 / 150 Balance 3747.36 / 3784.86 3863.08 / 3863.08 1435.54 / 1435.54 Lab / Micro Data 11/19/24 04:18 11/19/24 04:18 Labs: Laboratory Results - last 24 hr 11/18/24 14:10: Ammonia 117.0 H 11/19/24 04:18: WBC 14.6 H, RBC 4.43, Hgb 14.5, Hct 45.3, MCV 102.3 H, MCH 32.7 H, MCHC 32.0, RDW Std Deviation 52.5 H, RDW Coeff of Mildred 13.9, Plt Count 154, MPV 10.9, Immature Gran % (Auto) 0.700, Neut % (Auto) 79.5 H, Lymph % (Auto) 8.9L, [place] % (Auto) 10.8 H, Eos % (Auto) 0.0, Baso % (Auto) 0.1, Absolute Neuts (auto) 11.6 H, Absolute Lymphs (auto) 1.29, Nucleated RBC % 0, Differential Comment SCANNED, Diff Path Review December, Sodium 146 H, Potassium 4.1, Chloride 113 H, Carbon Dioxide 21.0, Anion Gap 12, BUN 69 H, Creatinine 2.42 H, Estim Creat Clear Calc 15.57 L, Est GFR (MDRD) Non-Af 19 L, BUN/Creatinine Ratio 28.3 H, Glucose 105 H, Calcium 8.5, Phosphorus 5.8 H, Magnesium 2.2, Total Bilirubin 0.65, Direct Bilirubin 0.38 H, AST 86 H, ALT 212 H, Alkaline Phosphatase 107 H, Total Protein 5.6 L, Albumin 3.1 L, Globulin 2.5 Micro: Microbiology 11/17/24 18:55 Mucosa - Nasopharyngeal Respiratory Panel (PCR) - Final 11/17/24 18:30 Nasal Secretion MRSA (PCR) - Final 11/17/24 18:30 Urine Catheter - Llanos Legionella Antigen - Final 11/17/24 18:30 Urine Catheter - Llanos Streptococcus pneumoniae Antigen (M - Final 11/17/24 13:20 Mucosa - Nose SARS-CoV-2, Influenza & RSV (PCR) - Final Radiography Diagnostic Testing: Radiology Impression Echocardiogram 11/17/24 20:43 Interpretation Summary The left ventricular ejection fraction is 60 %. Normal LV size. The left atrium is severely enlarged. The right atrium is moderately enlarged. Mild (1+) tricuspid valve insufficiency. Ordering Physician: Lorna Salvador Performed By: Edi David RCS Physical Exam Narrative GENERAL: Patient appears ill looking HEENT: Atraumatic; normocephalic EYES; Anicteric, Normal Conjunctiva NECK; supple, normal thyroid, RESPIRATORY: Diminished to auscultation CARDIOVASCULAR: Regular S1 S2, GI: soft, normoactive bowel sounds, : No Renal angle tenderness; EXTREMITIES: No edema, no clubbing, MUSCULOSKELETAL: no muscle wasting NEURO: Awake; no lateralizing signs. SKIN: No Rash PSYCH; Flat affect Assessment & Plan Assessment/Plan (1) Septic shock: PLAN: Plan Patient is an 84-year-old lady who was admitted with progressive generalized weakness and low back pain imaging studies obtained on admission demonstrated bilateral airspace opacities compatible with pneumonitis/pneumonia. An assessment of septic shock secondary to pneumonia made admitted to the intensivecare unit for further management 1. Septic shock ? Secondary to pneumonia Patient presented with progressive generalized weakness was found to be hypotensive with elevated WBC count and elevated lactic acid levels. Patient was admitted to the intensive care unit managed with IV fluid resuscitation, broad-spectrum antibiotic therapy after cultures have been sent patient placed on Levophed and still remains on Levophed as of the morning of 11/18/2024. Response to therapy being monitored with serial lactic acid levels ?; patient was noted to have low urine output did receive fluid bolus 2. Abnormal urinalysis ? Patient did not have pyuria however had elevated leukocyte Estrace patient remains on broad-spectrum antibiotic therapy cultures pending 3. Acute hypoxia ? Secondary to pneumonia management as discussed above patient was also placed on supplemental oxygen titrated to keep saturation greater than 90 4. Acute metabolic encephalopathy ? Multifactorial including patient septic shock hypoxia in addition patient was found to have hyperammonemia. Given the setting of impaired liver function did order lactulose 5. Elevated troponin secondary to demand ischemia from septic shock -Patient with elevated troponin of 482 and proBNP of nearly 22,000, suspect thatthis is part of the endorgan damage from her septic shock. Patient being managed with serial troponins ordered 2D echo for EF assessment 6. Acute kidney injury ? Suspected to be secondary to ATN from septic shock. Baseline creatinine 0.7 creatinine on admission 2.45. Patient being managed with IV fluid with monitoring monitoring of response to therapy with serial BMP ?/08/2024; given the persistent impaired kidney function consult was placed to pulmonary medicine 7. Acute transaminitis ? Secondary to shock liver. Repeated LFTs in a.m. for follow-up 8. Paroxysmal atrial fibrillation ? Rate controlled with atenolol which is currently being held given patient low blood pressure patient is also on systemic anticoagulation with rivaroxaban did continue 8. Essential hypertension ? Patient antihypertensives held given her presentation 9. Low back pain ? Imaging studies obtained demonstrated Mild compression of the inferior endplates, L3 and L4 may be related to remote trauma. Patient being managed with pain meds as well as muscle relaxant 10. Psoriatic arthritis -On Skyrizi every 3 month self injection 10. GERD -Continue home famotidine 11. DVT prophylaxis ? Already anticoagulated with rivaroxaban Time spent in the patient's overall evaluation,decision-making process, review of diagnostic data, adjustment of management, discussion with other providers, nursing nursing and ancillary staff involved in patient's care documentation, 50minutes Charges/Coding Visit Charges Inpatient E&M: 85772 Subs Hosp L3 11/19/24 0832 <Electronically signed by Kevin Robles MD> Cosigner Signature (if applicable): CC: ~ Signed [facility] Work Phone: [phone]) 913-369704-01-2025 Progress note [facility] Medical Records Department [address] [place] [address] Progress Note - Superintendent Power 11/19/24 7440 MR#: [id number] Acct: [id number] Name: LESLI ROSALES Rep #:[id number] : 1940 84 From: Gato Givens DO PCP: SILVIA GUTHRIE Status:ADM IN Location: ICU ICU04-1 Assessment & Plan Assessment/Plan (1) Shock: PLAN: Plan RECOMMENDATIONS: 1. Dietary advancement per speech therapy. 2. Continue supplemental oxygen for baseline requirement. 3. Continue Xarelto per home regimen. 4. Physical therapy to work with the patient. 5. If cultures remain negative over the next 24 to 48 hours, will discontinue antibiotics. 6. Will begin to wean stress dose steroids beginning tomorrow, if the patient remains hemodynamically stable. IMPRESSIONS: 1. Undifferentiated shock While the patient initially was admitted to the hospital with septic shock presumed secondary to pneumonia, subsequent imaging of her chest failed to demonstrate any radiographic findings concerning for infection. While blood cultures are still pending, no other definitive source of infection hasyet to be identified. Alternatively, given the patient's limited p.o. intake and hemoconcentrated labs, I suspect that the etiology for her shock is likely hypovolemic in nature. An obstructive etiology, such as pulmonary embolism, seems highly unlikely, given that the patient is maintained on Xarelto as an outpatient. Additionally, surface echocardiogram revealed intact systolic function. Given that cultures are still pending, we will plan to continue empiric antimicrobials. Nevertheless, if there are no positive cultures over the next 24 to 48 hours, I would plan to discontinue antibiotics. 2. Acute kidney injury Most likely prerenal in etiology. Continue gentle IV fluid hydration. Avoid nephrotoxic medications. Continue to monitor urine output. No current indication for renal replacement therapy. 3. Questionable history of COPD/chronic hypoxemic respiratory failure on 2 L/min/atrial fibrillation/low back pain Complicates care, management, recovery and prognosis. Continue supportive measures as noted above. This note was generated with uma information technology dictation software. It may contain incorrectwords, spelling, and punctuation that were not noted in checking the note beforesigning. Subjective Subjective The patient was seen and examined at the bedside this morning. Events from the last 24 hours have been reviewed. The patient is currently afebrile, hemodynamically stable and maintaining appropriate oxygen saturations on 3 L/minvia nasal cannula. The patient was able to be weaned off of Levophed com pletelyearly this morning. She is currently documented to be overall net +9 L for the hospitalization. White blood cell count has improved to 14,000. Creatinine is relatively stable at 2.42. Objective Data Objective Data The patient's most recent lab work, culture data and imaging studies have all been personally reviewed. Respiratory viral panel was negative. Strep and urine Legionella antigens were negative. Blood cultures are currently pending. Vital Signs: Vital Signs Temp Pulse Resp BP Pulse Ox O2 Del Method O2 Flow Rate 97.5 F L 73 17 98/63 98 Nasal Cannula 3 11/19/24 06:08 11/19/24 07:00 11/19/24 07:00 11/19/24 07:00 11/19/24 07:00 11/19/24 07:00 11/19/24 07:00 Oxygen Flow Rate (L/min) 3 Oxygen Delivery Method Nasal Cannula Weight: 159 lb 6.307 oz Body Mass Index (BMI) 31.1 Intake & Output: Intake and Output for Last 24 Hours 11/17/24 11/18/24 11/19/24 23:59 23:59 23:59 Intake Total 3777.36 / 3814.86 4168.08 / 4318.08 1585.54 / 1585.54 Output Total 305 / 455 150 / 150 Balance 3747.36 / 3784.86 3863.08 / 3863.08 1435.54 / 1435.54 Lab / Micro Data Attestation: I reviewed the patient's lab results. 11/19/24 04:18 11/19/24 04:18 Labs: Laboratory Results - last 24 hr 11/18/24 14:10: Ammonia 117.0 H 11/19/24 04:18: WBC 14.6 H, RBC 4.43, Hgb 14.5, Hct 45.3, MCV 102.3 H, MCH 32.7 H, MCHC 32.0, RDW Std Deviation 52.5 H, RDW Coeff of Mildred 13.9, Plt Count 154, MPV 10.9, Immature Gran % (Auto) 0.700, Neut % (Auto) 79.5 H, Lymph % (Auto) 8.9L, [place] % (Auto) 10.8 H, Eos % (Auto) 0.0, Baso % (Auto) 0.1,Absolute Neuts (auto) 11.6 H, Absolute Lymphs (auto) 1.29, Nucleated RBC % 0, Differential Comment SCANNED, Diff Path Review May foll, Sodium 146 H, Potassium 4.1, Chloride 113 H, Carbon Dioxide 21.0, Anion Gap 12, BUN 69 H, Creatinine 2.42 H, Estim Creat Clear Calc 15.57 L, Est GFR (MDRD) Non-Af 19 L, BUN/Creatinine Ratio 28.3 H, Glucose 105 H, Calcium 8.5, Phosphorus 5.8 H, Magnesium 2.2, Total Bilirubin 0.65, Direct Bilirubin 0.38 H, AST 86 H, ALT 212 H, Alkaline Phosphatase 107 H, Total Protein 5.6 L, Albumin 3.1 L, Globulin 2.5 Micro: Microbiology 11/17/24 18:55 Mucosa - Nasopharyngeal Respiratory Panel (PCR) - Final 11/17/24 18:30 Nasal Secretion MRSA (PCR) - Final 11/17/24 18:30 Urine Catheter - Llanos Legionella Antigen - Final 11/17/24 18:30 Urine Catheter - Llanos Streptococcus pneumoniae Antigen (M - Final 11/17/24 13:20 Mucosa - Nose SARS-CoV-2, Influenza & RSV (PCR) - Final Radiography Diagnostic Testing: Radiology Impression Echocardiogram 11/17/24 20:43 Interpretation Summary The left ventricular ejection fraction is 60 %. Normal LV size. The left atrium is severely enlarged. The right atrium is moderately enlarged. Mild (1+) tricuspid valve insufficiency. Ordering Physician: Lorna Salvador Performed By: Edi David RCS Physical Exam Const alert and no apparent distress General Appearance: cooperative HEENT normocephalic and head/scalp atraumatic Eyes EOMs intact bilaterally, conjunctivae normal and no scleral icterus Neck supple General: trachea midline Chest inspection of chest normal Resp normal respiratory effort Auscultation: Negative for rales, rhonchi or wheezes Cardio regular rate and regular rhythm GI normal to inspection, nondistended, normoactive bowel sounds Extremity no clubbing, cyanosis or edema Skin no rashes or lesions noted Neuro CN's II-XII intact bilaterally and moves all extremities Psych Mood & Affect: flat affect Charges/Coding Visit Charges Inpatient E&M: 28263 Subs Hosp L3 11/19/24 0956 Cosigner Signature (if applicable): CC: ~ Signed [facility]04-01-2025 Progress note [facility] Medical Records Department [address] [place] [address] Progress Note - Hospitalist 11/19/24 0717 MR#: [id number] Acct: [id number] Name: LESLI ROSALES Rep #:[id number] : 1940 84 From: Kevin Robles MD PCP: SILVIA GUTHRIE Status:ADM IN Location: ICU ICU04-1 Reason for Visit Reason for Visit: Diagnoses Sepsis, unspecified organism (11/17/24) Shock, unspecified (11/17/24) Severe sepsis with septic shock (11/17/24) Subjective Subjective Patient seen much more awake and intact compared to previous day. Patient was found to have significant tremors the day prior ammonia levels obtained came back markedly elevated patient subsequently started on lactulose. Patient was also found to have decreased urinary output and had to be given fluid resuscitation. Patient has since been weaned off Levophed Objective Data Objective Data Vital Signs: Vital Signs Temp Pulse Resp BP Pulse Ox O2 Del Method O2 Flow Rate 97.5 F L 73 17 98/63 98 Nasal Cannula 3 11/19/24 06:08 11/19/24 07:00 11/19/24 07:00 11/19/24 07:00 11/19/24 07:00 11/19/24 07:00 11/19/24 07:00 Oxygen Flow Rate (L/min) 3 Oxygen Delivery Method Nasal Cannula Weight: 72.3 kg Body Mass Index (BMI) 31.1 Intake & Output: Intake and Output for Last 24 Hours 11/17/24 11/18/24 11/19/24 23:59 23:59 23:59 Intake Total 3777.36 / 3814.86 4168.08 / 4318.08 1585.54 / 1585.54 Output Total 305 / 455 150 / 150 Balance 3747.36 / 3784.86 3863.08 / 3863.08 1435.54 / 1435.54 Lab / Micro Data 11/19/24 04:18 11/19/24 04:18 Labs: Laboratory Results - last 24 hr 11/18/24 14:10: Ammonia 117.0 H 11/19/24 04:18: WBC 14.6 H, RBC 4.43, Hgb 14.5, Hct 45.3, MCV 102.3 H, MCH 32.7 H, MCHC 32.0, RDW Std Deviation 52.5 H, RDW Coeff of Mildred 13.9, Plt Count 154, MPV 10.9, Immature Gran % (Auto) 0.700, Neut % (Auto) 79.5 H, Lymph % (Auto) 8.9L, [place] % (Auto) 10.8 H, Eos % (Auto) 0.0, Baso % (Auto) 0.1,Absolute Neuts (auto) 11.6 H, Absolute Lymphs (auto) 1.29, Nucleated RBC % 0, Differential Comment SCANNED, Diff Path Review December, Sodium 146 H, Potassium 4.1, Chloride 113 H, Carbon Dioxide 21.0, Anion Gap 12, BUN 69 H, Creatinine 2.42 H, Estim Creat Clear Calc 15.57 L, Est GFR (MDRD) Non-Af 19 L, BUN/Creatinine Ratio 28.3 H, Glucose 105 H, Calcium 8.5, Phosphorus 5.8 H, Magnesium 2.2, Total Bilirubin 0.65, Direct Bilirubin 0.38 H, AST 86 H, ALT 212 H, Alkaline Phosphatase 107 H, Total Protein 5.6 L, Albumin 3.1 L, Globulin 2.5 Micro: Microbiology 11/17/24 18:55 Mucosa - Nasopharyngeal Respiratory Panel (PCR) - Final 11/17/24 18:30 Nasal Secretion MRSA (PCR) - Final 11/17/24 18:30 Urine Catheter - Llanos Legionella Antigen - Final 11/17/24 18:30 Urine Catheter - Llanos Streptococcus pneumoniae Antigen (M - Final 11/17/24 13:20 Mucosa - Nose SARS-CoV-2, Influenza & RSV (PCR) - Final Radiography Diagnostic Testing: Radiology Impression Echocardiogram 11/17/24 20:43 Interpretation Summary The left ventricular ejection fraction is 60 %. Normal LV size. The left atrium is severely enlarged. The right atrium is moderately enlarged. Mild (1+) tricuspid valve insufficiency. Ordering Physician: Lorna Salvador Performed By: Edi David RCS Physical Exam Narrative GENERAL: Patient appears ill looking HEENT: Atraumatic; normocephalic EYES; Anicteric, Normal Conjunctiva NECK; supple, normal thyroid, RESPIRATORY: Diminished to auscultation CARDIOVASCULAR: Regular S1 S2, GI: soft, normoactive bowel sounds, : No Renal angle tenderness; EXTREMITIES: No edema, no clubbing, MUSCULOSKELETAL: no muscle wasting NEURO: Awake; no lateralizing signs. SKIN: No Rash PSYCH; Flat affect Assessment & Plan Assessment/Plan (1) Septic shock: PLAN: Plan Patient is an 84-year-old lady who was admitted with progressive generalized weakness and low back pain imaging studies obtained on admission demonstrated bilateral airspace opacities compatible withpneumonitis/pneumonia. An assessment of septic shock secondary to pneumonia made admitted to the intensivecare unit for further management 1. Septic shock ? Secondary to pneumonia Patient presented with progressive generalized weakness was found to be hypotensive with elevated WBC count and elevated lactic acid levels. Patient was admitted to the intensive care unit managed with IV fluid resuscitation, broad- spectrum antibiotic therapy after cultures have been sent patient placed on Levophed and still remains on Levophed as of the morning of 11/18/2024. Response to therapy being monitored with serial lactic acid levels ?; patient was noted to have low urine output did receive fluid bolus 2. Abnormal urinalysis ? Patient did not have pyuria however had elevated leukocyte Estrace patient remains on broad-spectrum antibiotic therapy cultures pending 3. Acute hypoxia ? Secondary to pneumonia management as discussed above patient was also placed on supplemental oxygen titrated to keep saturation greater than 90 4. Acute metabolic encephalopathy ? Multifactorial including patient septic shock hypoxia in addition patient was found to have hyperammonemia. Given the setting of impaired liver function did order lactulose 5. Elevated troponin secondary to demand ischemia from septic shock -Patient with elevated troponin of 482 and proBNP of nearly 22,000, suspect thatthis is part of theendorgan damage from her septic shock. Patient being managed with serial troponins ordered 2D echo for EF assessment 6. Acute kidney injury ? Suspected to be secondary to ATN from septic shock. Baseline creatinine 0.7 creatinine on admission 2.45. Patient being managed with IV fluid with monitoring monitoring of response to therapy with serial BMP ; given the persistent impaired kidney function consult was placed to pulmonary medicine 7. Acute transaminitis ? Secondary to shock liver. Repeated LFTs in a.m. for follow-up 8. Paroxysmal atrial fibrillation ? Rate controlled with atenolol which is currently being held given patient low blood pressure patient is also on systemic anticoagulation with rivaroxaban did continue 8. Essential hypertension ? Patient antihypertensives held given her presentation 9. Low back pain ? Imaging studies obtained demonstrated Mild compression of the inferior endplates, L3 and L4 may be related to remote trauma. Patient being managed with pain meds as well as muscle relaxant 10. Psoriatic arthritis -On Skyrizi every 3 month self injection 10. GERD -Continue home famotidine 11. DVT prophylaxis ? Already anticoagulated with rivaroxaban Time spent in the patient's overall evaluation,decision-making process, review of diagnostic data, adjustment of management, discussion with other providers, nursing nursing and ancillary staff involved in patient's care documentation, 50minutes Charges/Coding Visit Charges Inpatient E&M: 04292 Subs Hosp L3 11/19/24 0832 Cosigner Signature (if applicable): CC: ~ Signed [facility]2025 Progress note Author Gato Givens [facility] Note Date/Time November 18, 2024 10: 15am [facility] Medical Records Department [address] [place] [address] Progress Note - Superintendent Power 11/18/24 0751 MR#: [id number] Acct: [id number] Name: LESLI ROSALES Jose Alberto Rep #:[id number] : 1940 84 From: Gato Givens DO PCP: SILVIA GUTHRIE Status:ADM IN Location: ICU ICU04-1 Assessment & Plan Assessment/Plan (1) Shock: PLAN: Plan RECOMMENDATIONS: 1. Ongoing gentle IV fluid hydration, given n.p.o. status. 2. Speech therapy evaluation, prior to advancement of diet. 3. Discontinue IV morphine. 4. Continue to wean Levophed to maintain a mean arterial pressure at or above 65 mmHg. 5. Continue Xarelto per home regimen. 6. Awaiting results of echocardiogram. 7. Physical therapy to work with the patient. 8. Consider referral to banner painter. IMPRESSIONS: 1. Undifferentiated shock While the patient initially was admitted to the hospital with septic shock presumed secondary to pneumonia, subsequent imaging of her chest failed to demonstrate any radiographic findings concerning for infection. While blood cultures are still pending, no other definitive source of infection has yet to be identified. Alternatively, given the patient's limited p.o. intake, it is certainly plausible that her presenting laboratory abnormalities and hypotensionmay be secondary to hypovolemia. An obstructive etiology, such as pulmonary embolism, seems highly unlikely, given that the patient is maintained on Xareltoas an outpatient. For now, we will plan to continue antimicrobials, pending culture results. Given negative MRSA screen, will discontinue vancomycin, however. In the interim, I would plan to continue supplemental IV fluid hydration, given n.p.o. status. Echocardiogram is currently pending to evaluatefor underlying cardiac dysfunction. 2. Acute kidney injury Most likely prerenal in etiology. Continue gentle IV fluid hydration along withvasopressor support to maintain hemodynamic stability. Avoid nephrotoxic medications. Continue to monitor urine output. No current indication for renalreplacement therapy. 3. Questionable history of COPD/chronic hypoxemic respiratory failure on 2 L/min/atrial fibrillation/low back pain Complicates care, management, recovery and prognosis. Continue supportive measures as noted above. Recommend avoiding large doses of IV morphine. If thepatient passes her swallow evaluation, as needed oxycodone can be initiated. Continue systemic anticoagulation with Xarelto. Consider referral to banner painter. TIME: 38 minutes of critical care time, independent of procedures, was spent addressing the patient's undifferentiated shock, acute kidney injury, low back pain, review of all data and collaboration with the care team. Subjective Subjective The patient was seen and examined at the bedside this morning. Events from the last 24 hours have been reviewed. The patient currently has a low-grade fever and remains hemodynamically stable on Levophed at 10 mcg/min. She is maintaining appropriate oxygen saturations on 3 L/min via nasal cannula. The patient does report ongoing low back pain, which she states has been present nowfor approximately 2 months after she injured herself while attempting to get herhusband up off the floor. White blood cell count is elevated at 23,000. Creatinine is stable at 2.24. Objective Data Objective Data The patient's most recent lab work, culture data and imaging studies have all been personally reviewed. Respiratory viral panel was negative. Strep and urine Legionella antigens were negative. Blood cultures are currently pending. Vital Signs: Vital Signs Temp Pulse Resp BP Pulse Ox O2 Del Method O2 Flow Rate 99.8 F H 87 14 113/60 95 Nasal Cannula 3 11/18/24 03:00 11/18/24 07:10 11/18/24 07:10 11/18/24 07:03 11/18/24 07:10 11/18/24 07:10 11/18/24 07:10 Oxygen Flow Rate (L/min) 3 Oxygen Delivery Method Nasal Cannula Weight: 158 lb 1.143 oz Body Mass Index (BMI) 30.9 Intake & Output: Intake and Output for Last 24 Hours 11/16/24 11/17/24 11/18/24 23:59 23:59 23:59 Intake Total 3777.36 / 3814.86 661.05 / 661.05 Output Total 125 / 125 Balance 3747.36 / 3784.86 536.05 / 536.05 Lab / Micro Data Attestation: I reviewed the patient's lab results. 11/18/24 02:55 11/18/24 02:55 Labs: Laboratory Results - last 24 hr 11/17/24 12:45: WBC 21.2 H, RBC 5.44 H, Hgb 17.7 H, Hct 56.6 H, MCV 104.0 H, MCH32.5 H, MCHC 31.3 L, RDW Std Deviation 53.3 H, RDW Coeff of Mildred 13.7, Plt Count 272, MPV 11.0, Immature Gran % (Auto) 0.700, Neut % (Auto) 85.3 H, Lymph % (Auto) 6.2 L, [place] % (Auto) 7.5, Eos % (Auto) 0.0, Baso % (Auto) 0.3, Absolute Neuts (auto) 18.1 H, Absolute Lymphs (auto) 1.32, Nucleated RBC % 0, Diff Path Review December, Sodium 142, Potassium 5.1, Chloride 102, Carbon Dioxide 21.9, Anion Gap 18 H, BUN 45 H, Creatinine 2.45 H, Estim Creat Clear Calc 15.17 L, Est GFR (MDRD) Non-Af 19 L, BUN/Creatinine Ratio 18.2, Glucose 160 H, Lactic Acid 4.1 H*, Calcium 9.6, Total Bilirubin 1.19, AST 474 H, ALT 435 H, Alkaline Phosphatase 168 H, Troponin T High Sens 482 H*, [place] [address] H, Total Protein 7.3, Albumin 3.7, Globulin 3.6, Albumin/Globulin Ratio 1.0 11/17/24 13:37: Urine Color Yellow, Urine Clarity Sl. Cloudy, Urine pH 6.0, Ur Specific Bim 1.020, Urine Protein 30 H, Urine Glucose (UA) Normal, Urine Ketones 15 H, Urine Occult Blood 10 H, Urine Nitrite Negative, Urine Bilirubin Negative, Urine Urobilinogen 1 H, Ur Leukocyte Esterase 25 H, Urine RBC 0 SEEN, Urine WBC 0-5 SEEN, Ur Squamous Epith Cells 0-5 SEEN, Urine Bacteria 0 SEEN, Urine Mucus 0 SEEN 11/17/24 15:15: Troponin T Hi Sens 2 Hr 441 H* 11/17/24 17:05: Troponin T Hi Sens 4Hr 407 H* 11/17/24 18:00: Lactic Acid 2.3 H* 11/17/24 21:40: WBC 23.1 H, RBC 5.12, Hgb 16.7 H, Hct 52.9 H, MCV 103.3 H, MCH 32.6 H, MCHC 31.6 L, RDW Std Deviation 52.3 H, RDW Coeff of Mildred 13.5, Plt Count 271, MPV 10.7, Immature Gran % (Auto) 0.600, Neut % (Auto) 81.6 H, Lymph % (Auto) 8.0 L, [place] % (Auto) 9.6, Eos % (Auto) 0.0, Baso % (Auto) 0.2, Absolute Neuts (auto) 18.8 H, Absolute Lymphs (auto) 1.85, Nucleated RBC % 0, Differential Comment SCANNED, Diff Path Review May foll, Sodium 140, Potassium 5.4 H, Chloride 106, Carbon Dioxide 20.1 L, Anion Gap 14, BUN 50 H, Creatinine 2.22 H, Estim Creat Clear Calc 16.20 L, Est GFR (MDRD) Non-Af 21 L, BUN/Creatinine Ratio 22.7 H, Glucose 150 H, Calcium 8.7, Phosphorus 7.5 H, Magnesium 2.2, Total Bilirubin 0.97, AST 294 H, ALT 360 H, Alkaline Phosphatase 143 H, Total Protein 6.6, Albumin 3.4, Globulin 3.2, Albumin/Globulin Ratio 1.0,Lipase 40 11/18/24 02:55: WBC 23.3 H, RBC 5.11, Hgb 16.5 H, Hct 52.0 H, MCV 101.8 H, MCH 32.3 H, MCHC 31.7 L, RDW Std Deviation 51.6 H, RDW Coeff of Mildred 13.5, Plt Count 255, MPV 10.5, Immature Gran % (Auto) 0.600, Neut % (Auto) 83.5 H, Lymph % (Auto) 7.9 L, [place] % (Auto) 7.7, Eos % (Auto) 0.0, Baso % (Auto) 0.3, Absolute Neuts (auto) 19.4 H, Absolute Lymphs (auto) 1.84, Nucleated RBC % 0, Differential Comment SCANNED, Diff Path Review December foll, PT 18.8 H, INR 1.5, Sodium 140, Potassium 5.0, Chloride 106, Carbon Dioxide 20.1 L, Anion Gap 14, BUN 55 H, Creatinine 2.24 H, Estim Creat Clear Calc 16.06 L, Est GFR (MDRD) Non-Af 21 L, BUN/Creatinine Ratio 24.7 H, Glucose 140 H, Calcium 9.0, Total Bilirubin 0.74, AST 224 H, ALT 325 H, Alkaline Phosphatase 141 H, Total Protein 6.6, Albumin 3.4, Globulin 3.2, Albumin/Globulin Ratio 1.1, TSH 0.997 Micro: Microbiology 11/17/24 18:55 Mucosa - Nasopharyngeal Respiratory Panel (PCR) - Final 11/17/24 18:30 Nasal Secretion MRSA (PCR) - Final 11/17/24 18:30 Urine Catheter - Llanos Legionella Antigen - Final 11/17/24 18:30 Urine Catheter - Llanos Streptococcus pneumoniae Antigen (M - Final 11/17/24 13:20 Mucosa - Nose SARS-CoV-2, Influenza & RSV (PCR) - Final Radiography Diagnostic Testing: Radiology Impression Chest X-Ray 11/17/24 15:21 IMPRESSION: 1. Bilateral airspace opacities, compatible with pneumonitis/pneumonia. 2. Moderate cardiomegaly. 3. Slight increased size of a right midlung pulmonary nodule, previously characterized as a granuloma. Without access to patient chart, this diagnosis can not be confirmed. Correlation with patient's chart recommended and possible outpatient nonemergent CT chest could be obtained for further characterization if clinically indicated, not recently performed and/or inability to confirm benign pathology. Reading Location: [facility] Hip/Pelvis X-Ray 11/17/24 15:21 IMPRESSION: DEGENERATIVE OSTEOARTHROSIS. NO ACUTE FINDINGS. Reading Location: [facility] Chest/Abdomen/Pelvis CT 11/17/24 20:40 IMPRESSION: 1. Right pleural effusion. 2. Right upper lobe calcified granuloma. 3. Mild centrilobular emphysematous changes. 4. Cardiac enlargement. 5. Chronic changes in the dependent lungs. 6. Total right humeral arthroplasty. 7. Status post cholecystectomy and hysterectomy.. 8. Balloon tip Llanos catheter. 9. Atherosclerotic calcific disease of the aorta and iliac arteries. 10. Postoperative changes of the lower anterior abdominal wall. 11. Mild compression of the inferior endplates, L3 and L4 may be related to remote trauma. Clinical correlation recommended. 12. Other nonacute findings detailed above. Reading Location: [facility] Physical Exam Const alert and no apparent distress Constitutional Narrative: Somewhat somnolent, but arouses easily and answers questions. General Appearance: cooperative HEENT normocephalic and head/scalp atraumatic Eyes EOMs intact bilaterally, conjunctivae normal and no scleral icterus Neck supple General: trachea midline Chest inspection of chest normal Resp normal respiratory effort Auscultation: Negative for rales, rhonchi or wheezes Cardio regular rate and regular rhythm GI normal to inspection, nondistended, normoactive bowel sounds Extremity no clubbing, cyanosis or edema Skin no rashes or lesions noted Neuro CN's II-XII intact bilaterally and moves all extremities Psych Mood & Affect: flat affect Charges/Coding Procedures Hospitalists Procedures: 19052 Critical Care 1st Hr 11/18/24 1015 <Electronically signed by Gato Givens DO> Cosigner Signature (if applicable): CC: ~ [facility]igned [facility] Work Phone: [phone] Progress note Author [facility] Note Date/Time November 18, 2024 8:3 6am [facility] Medical Records Department [address] [place] [address] Progress Note - Hospitalist 11/18/24729 MR#: [id number] Acct: [id number] Name: LESLI ROSALES Rep #:[id number] : 1940 84 From: Kevin Robles MD PCP: SILVIA GUTHRIE Status:ADM IN Location: ICU ICU-1 Reason for Visit Reason for Visit: Diagnoses Sepsis, unspecified organism (11/17/24) Severe sepsis with septic shock (11/17/24) Subjective Subjective Patient is an 84-year-old lady who was admitted with progressive generalized weakness and low back pain imaging studies obtained on admission demonstrated bilateral airspace opacities compatible with pneumonitis/pneumonia. An assessment of septic shock secondary to pneumonia made admitted to the intensivecare unit for further management Objective Data Objective Data Vital Signs: Vital Signs Temp Pulse Resp BP Pulse Ox O2 Del Method O2 Flow Rate 99.8 F H 87 14 113/60 95 Nasal Cannula 3 11/18/24 03:00 11/18/24 07:10 11/18/24 07:10 11/18/24 07:03 11/18/24 07:10 11/18/24 07:10 11/18/24 07:10 Oxygen Flow Rate (L/min) 3 Oxygen Delivery Method Nasal Cannula Weight: 71.7 kg Body Mass Index (BMI) 30.9 Intake & Output: Intake and Output for Last 24 Hours 11/16/24 11/17/24 11/18/24 23:59 23:59 23:59 Intake Total 3777.36 / 3814.86 661.05 / 661.05 Output Total 125 / 125 Balance 3747.36 / 3784.86 536.05 / 536.05 Lab / Micro Data 11/18/24 02:55 11/18/24 02:55 Labs: Laboratory Results - last 24 hr 11/17/24 12:45: WBC 21.2 H, RBC 5.44 H, Hgb 17.7 H, Hct 56.6 H, MCV 104.0 H, MCH32.5 H, MCHC 31.3 L, RDW Std Deviation 53.3 H, RDW Coeff of Mildred 13.7, Plt Count 272, MPV 11.0, Immature Gran % (Auto) 0.700, Neut % (Auto) 85.3 H, Lymph % (Auto) 6.2 L, [place] % (Auto) 7.5, Eos % (Auto) 0.0, Baso % (Auto) 0.3, Absolute Neuts (auto) 18.1 H, Absolute Lymphs (auto) 1.32, Nucleated RBC % 0, Diff Path Review December, Sodium 142, Potassium 5.1, Chloride 102, Carbon Dioxide 21.9, Anion Gap 18 H, BUN 45 H, Creatinine 2.45 H, Estim Creat Clear Calc 15.17 L, Est GFR (MDRD) Non-Af 19 L, BUN/Creatinine Ratio 18.2, Glucose 160 H, Lactic Acid 4.1 H*, Calcium 9.6, Total Bilirubin 1.19, AST 474 H, ALT 435 H, Alkaline Phosphatase 168 H, Troponin T High Sens 482 H*, [place] [address] H, Total Protein 7.3, Albumin 3.7, Globulin 3.6, Albumin/Globulin Ratio 1.0 11/17/24 13:37: Urine Color Yellow, Urine Clarity Sl. Cloudy, Urine pH 6.0, Ur Specific Bim 1.020, Urine Protein 30 H, Urine Glucose (UA) Normal, Urine Ketones 15 H, Urine Occult Blood 10 H, Urine Nitrite Negative, Urine Bilirubin Negative, Urine Urobilinogen 1 H, Ur Leukocyte Esterase 25 H, Urine RBC 0 SEEN, Urine WBC 0-5 SEEN, Ur Squamous Epith Cells 0-5 SEEN, Urine Bacteria 0 SEEN, Urine Mucus 0 SEEN 11/17/24 15:15: Troponin T Hi Sens 2 Hr 441 H* 11/17/24 17:05: Troponin T Hi Sens 4Hr 407 H* 11/17/24 18:00: Lactic Acid 2.3 H* 11/17/24 21:40: WBC 23.1 H, RBC 5.12, Hgb 16.7 H, Hct 52.9 H, MCV 103.3 H, MCH 32.6 H, MCHC 31.6 L, RDW Std Deviation 52.3 H, RDW Coeff of Mildred 13.5, Plt Count 271, MPV 10.7, Immature Gran % (Auto) 0.600, Neut % (Auto) 81.6 H, Lymph % (Auto) 8.0 L, [place] % (Auto) 9.6, Eos % (Auto) 0.0, Baso % (Auto) 0.2, Absolute Neuts (auto) 18.8 H, Absolute Lymphs (auto) 1.85, Nucleated RBC % 0, Differential Comment SCANNED, Diff Path Review December, Sodium 140, Potassium 5.4 H, Chloride 106, Carbon Dioxide 20.1 L, Anion Gap 14, BUN 50 H, Creatinine 2.22 H, Estim Creat Clear Calc 16.20 L, Est GFR (MDRD) Non-Af 21 L, BUN/Creatinine Ratio 22.7 H, Glucose 150 H, Calcium 8.7, Phosphorus 7.5 H, Magnesium 2.2, Total Bilirubin 0.97, AST 294 H, ALT 360 H, Alkaline Phosphatase 143 H, Total Protein 6.6, Albumin 3.4, Globulin 3.2, Albumin/Globulin Ratio 1.0,Lipase 40 11/18/24 02:55: WBC 23.3 H, RBC 5.11, Hgb 16.5 H, Hct 52.0 H, MCV 101.8 H, MCH 32.3 H, MCHC 31.7 L, RDW Std Deviation 51.6 H, RDW Coeff of Mildred 13.5, Plt Count 255, MPV 10.5, Immature Gran % (Auto) 0.600, Neut % (Auto) 83.5 H, Lymph % (Auto) 7.9 L, [place] % (Auto) 7.7, Eos % (Auto) 0.0, Baso % (Auto) 0.3, Absolute Neuts (auto) 19.4 H, Absolute Lymphs (auto) 1.84, Nucleated RBC % 0, Differential Comment SCANNED, Diff Path Review December foll, PT 18.8 H, INR 1.5, Sodium 140, Potassium 5.0, Chloride 106, Carbon Dioxide 20.1 L, Anion Gap 14, BUN 55 H, Creatinine 2.24 H, Estim Creat Clear Calc 16.06 L, Est GFR (MDRD) Non-Af 21 L, BUN/Creatinine Ratio 24.7 H, Glucose 140 H, Calcium 9.0, Total Bilirubin 0.74, AST 224 H, ALT 325 H, Alkaline Phosphatase 141 H, Total Protein 6.6, Albumin 3.4, Globulin 3.2, Albumin/Globulin Ratio 1.1, TSH 0.997 Micro: Microbiology 11/17/24 18:55 Mucosa - Nasopharyngeal Respiratory Panel (PCR) - Final 11/17/24 18:30 Nasal Secretion MRSA (PCR) - Final 11/17/24 18:30 Urine Catheter - Llanos Legionella Antigen - Final 11/17/24 18:30 Urine Catheter - Llanos Streptococcus pneumoniae Antigen (M - Final 11/17/24 13:20 Mucosa - Nose SARS-CoV-2, Influenza & RSV (PCR) - Final Radiography Diagnostic Testing: Radiology Impression Chest X-Ray 11/17/24 15:21 IMPRESSION: 1. Bilateral airspace opacities, compatible with pneumonitis/pneumonia. 2. Moderate cardiomegaly. 3. Slight increased size of a right midlung pulmonary nodule, previously characterized as a granuloma. Without access to patient chart, this diagnosis can not be confirmed. Correlation with patient's chart recommended and possible outpatient nonemergent CT chest could be obtained for further characterization if clinically indicated, not recently performed and/or inability to confirm benign pathology. Reading Location: [facility] Hip/Pelvis X-Ray 11/17/24 15:21 IMPRESSION: DEGENERATIVE OSTEOARTHROSIS. NO ACUTE FINDINGS. Reading Location: [facility] Chest/Abdomen/Pelvis CT 11/17/24 20:40 IMPRESSION: 1. Right pleural effusion. 2. Right upper lobe calcified granuloma. 3. Mild centrilobular emphysematous changes. 4. Cardiac enlargement. 5. Chronic changes in the dependent lungs. 6. Total right humeral arthroplasty. 7. Status post cholecystectomy and hysterectomy.. 8. Balloon tip Llanos catheter. 9. Atherosclerotic calcific disease of the aorta and iliac arteries. 10. Postoperative changes of the lower anterior abdominal wall. 11. Mild compression of the inferior endplates, L3 and L4 may be related to remote trauma. Clinical correlation recommended. 12. Other nonacute findings detailed above. Reading Location: [facility] Physical Exam Narrative GENERAL: Patient appears ill looking HEENT: Atraumatic; normocephalic EYES; Anicteric, Normal Conjunctiva NECK; supple, normal thyroid, RESPIRATORY: Diminished to auscultation CARDIOVASCULAR: Regular S1 S2, GI: soft, normoactive bowel sounds, : No Renal angle tenderness; EXTREMITIES: No edema, no clubbing, MUSCULOSKELETAL: no muscle wasting NEURO: Awake; no lateralizing signs. SKIN: No Rash PSYCH; Flat affect Assessment & Plan Assessment/Plan (1) Septic shock: PLAN: Plan Patient is an 84-year-old lady who was admitted with progressive generalized weakness and low back pain imaging studies obtained on admission demonstrated bilateral airspace opacities compatible with pneumonitis/pneumonia. An assessment of septic shock secondary to pneumonia made admitted to the intensivecare unit for further management . Septic shock ? Secondary to pneumonia Patient presented with progressive generalized weakness was found to be hypotensive with elevated WBC count and elevated lactic acid levels. Patient was admitted to the intensive care unit managed with IV fluid resuscitation, broad-spectrum antibiotic therapy after cultures have been sent patient placed on Levophed and still remains on Levophed as of the morning of 11/18/2024. Response to therapy being monitored with serial lactic acid levels 2. Abnormal urinalysis ? Patient did not have pyuria however had elevated leukocyte Estrace patient remains on broad-spectrum antibiotic therapy cultures pending 3. Acute hypoxia ? Secondary to pneumonia management as discussed above patient was also placed on supplemental oxygen titrated to keep saturation greater than 90 4. Low back pain ? Imaging studies obtained demonstrated Mild compression of the inferior endplates, L3 and L4 may be related to remote trauma. Patient being managed with pain meds as well as muscle relaxant 5. Elevated troponin secondary to demand ischemia from septic shock -Patient with elevated troponin of 482 and proBNP of nearly 22,000, suspect thatthis is part of the endorgan damage from her septic shock. Patient being managed with serial troponins ordered 2D echo for EF assessment 6. Acute kidney injury ? Suspected to be secondary to ATN from septic shock. Baseline creatinine 0.7 creatinine on admission 2.45. Patient being managed with IV fluid with monitoring monitoring of response to therapy with serial BMP 7. Acute transaminitis ? Secondary to shock liver. Repeated LFTs in a.m. for follow-up 8. Paroxysmal atrial fibrillation ? Rate controlled with atenolol which is currently being held given patient low blood pressure patient is also on systemic anticoagulation with rivaroxaban did continue 8. Essential hypertension ? Patient antihypertensives held given her presentation 9. Psoriatic arthritis -On Skyrizi every 3 month self injection 10. GERD -Continue home famotidine 11. DVT prophylaxis ? Already anticoagulated with rivaroxaban Time spent in the patient's overall evaluation,decision-making process, review of diagnostic data, adjustment of management, discussion with other providers, nursing nursing and ancillary staff involved in patient's care documentation, 55minutes Charges/Coding Visit Charges Inpatient E&M: 49746 Subs Hosp L3 11/18/24 0836 <Electronically signed by Kevin Robles MD> Cosigner Signature (if applicable): CC: ~ Signed [facility] Work Phone: [phone] Progress note [facility] Medical Records Department [address] [place] [address] Progress Note - Superintendent Power 11/18/24 0751 MR#: [id number] Acct: [id number] Name: LESLI ROSALES Rep #:[id number] : 1940 84 From: Gato Givens DO PCP: SILVIA GUTHRIE Status:ADM IN Location: ICU ICU04-1 Assessment & Plan Assessment/Plan (1) Shock: PLAN: Plan RECOMMENDATIONS: 1. Ongoing gentle IV fluid hydration, given n.p.o. status. 2. Speech therapy evaluation, prior to advancement of diet. 3. Discontinue IV morphine. 4. Continue to wean Levophed to maintain a mean arterial pressure at or above 65 mmHg. 5. Continue Xarelto per home regimen. 6. Awaiting results of echocardiogram. 7. Physical therapy to work with the patient. 8. Consider referral to banner painter. IMPRESSIONS: 1. Undifferentiated shock While the patient initially was admitted to the hospital with septic shock presumed secondary to pneumonia, subsequent imaging of her chest failed to demonstrate any radiographic findings concerning for infection. While blood cultures are still pending, no other definitive source of infection hasyet to be identified. Alternatively, given the patient's limited p.o. intake, it is certainly plausible that her presenting laboratory abnormalities and hypotensionmay be secondary to hypovolemia. Anobstructive etiology, such as pulmonary embolism, seems highly unlikely, given that the patient is maintained on Xareltoas an outpatient. For now, we will plan to continue antimicrobials, pending culture results. Given negative MRSA screen, will discontinue vancomycin, however. In the interim, I would plan to continue supplemental IV fluid hydration, given n.p.o. status. Echocardiogram is currently pending to evaluatefor underlying cardiac dysfunction. 2. Acute kidney injury Most likely prerenal in etiology. Continue gentle IV fluid hydration along withvasopressor support to maintain hemodynamic stability. Avoid nephrotoxic medications. Continue to monitor urine output. No current indication for renalreplacement therapy. 3. Questionable history of COPD/chronic hypoxemic respiratory failure on 2 L/min/atrial fibrillation/low back pain Complicates care, management, recovery and prognosis. Continue supportive measures as noted above. Recommend avoiding large doses of IV morphine. If thepatient passes her swallow evaluation, as needed oxycodone can be initiated. Continue systemic anticoagulation with Xarelto. Consider referral to banner painter. TIME: 38 minutes of critical care time, independent of procedures, was spent addressing the patient's undifferentiated shock, acute kidney injury, low back pain, review of all data and collaboration with the care team. Subjective Subjective The patient was seen and examined at the bedside this morning. Events from the last 24 hours have been reviewed. The patient currently has a low-grade fever and remains hemodynamically stable on Levophed at 10 mcg/min. She is maintaining appropriate oxygen saturations on 3 L/min via nasal cannula. The patient does report ongoing low back pain, which she states has been present nowfor approximately 2 months after she injured herself while attempting to get herhusband up off the floor. White blood cell count is elevated at 23,000. Creatinine is stable at 2.24. Objective Data Objective Data The patient's most recent lab work, culture data and imaging studies have all been personally reviewed. Respiratory viral panel was negative. Strep and urine Legionella antigens were negative. Blood cultures are currently pending. Vital Signs: Vital Signs Temp Pulse Resp BP Pulse Ox O2 Del Method O2 Flow Rate 99.8 F H 87 14 113/60 95 Nasal Cannula 3 11/18/24 03:00 11/18/24 07:10 11/18/24 07:10 11/18/24 07:03 11/18/24 07:10 11/18/24 07:10 11/18/24 07:10 Oxygen Flow Rate (L/min) 3 Oxygen Delivery Method Nasal Cannula Weight: 158 lb 1.143 oz Body Mass Index (BMI) 30.9 Intake & Output: Intake and Output for Last 24 Hours 11/16/24 11/17/24 11/18/24 23:59 23:59 23:59 Intake Total 3777.36 / 3814.86 661.05 / 661.05 Output Total 125 / 125 Balance 3747.36 / 3784.86 536.05 / 536.05 Lab / Micro Data Attestation: I reviewed the patient's lab results. 11/18/24 02:55 11/18/24 02:55 Labs: Laboratory Results - last 24 hr 11/17/24 12:45: WBC 21.2 H, RBC 5.44 H, Hgb 17.7 H, Hct 56.6 H, MCV 104.0 H, MCH32.5 H, MCHC 31.3 L, RDW Std Deviation 53.3 H, RDW Coeff of Mildred 13.7, Plt Count 272, MPV 11.0, Immature Gran % (Auto) 0.700, Neut % (Auto) 85.3 H, Lymph % (Auto) 6.2 L, [place] % (Auto) 7.5, Eos % (Auto) 0.0, Baso % (Auto)0.3, Absolute Neuts (auto) 18.1 H, Absolute Lymphs (auto) 1.32, Nucleated RBC % 0, Diff Path ReviewMay foll, Sodium 142, Potassium 5.1, Chloride 102, Carbon Dioxide 21.9, Anion Gap 18 H, BUN 45 H, Creatinine 2.45 H, Estim Creat Clear Calc 15.17 L, Est GFR (MDRD) Non-Af 19 L, BUN/Creatinine Ratio 18.2, Glucose 160 H, Lactic Acid 4.1 H*, Calcium 9.6, Total Bilirubin 1.19, AST 474 H, ALT 435 H, Alkaline Phosphatase 168 H, Troponin T High Sens 482 H*, [place] [address] H, Total Protein 7.3, Albumin 3.7, Globulin 3.6, Albumin/Globulin Ratio 1.0 11/17/24 13:37: Urine Color Yellow, Urine Clarity Sl. Cloudy, Urine pH 6.0, Ur Specific Bim 1.020, Urine Protein 30 H, Urine Glucose (UA) Normal, Urine Ketones 15 H, Urine Occult Blood 10 H, Urine Nitrite Negative, Urine Bilirubin Negative, Urine Urobilinogen 1 H, Ur Leukocyte Esterase 25 H, Urine RBC 0 SEEN, Urine WBC 0-5 SEEN, Ur Squamous Epith Cells 0-5 SEEN, Urine Bacteria 0 SEEN, Urine Mucus 0 SEEN 11/17/24 15:15: Troponin T Hi Sens 2 Hr 441 H* 11/17/24 17:05: Troponin T Hi Sens 4Hr 407 H* 11/17/24 18:00: Lactic Acid 2.3 H* 11/17/24 21:40: WBC 23.1 H, RBC 5.12, Hgb 16.7 H, Hct 52.9 H, MCV 103.3 H, MCH 32.6 H, MCHC 31.6 L,RDW Std Deviation 52.3 H, RDW Coeff of Mildred 13.5, Plt Count 271, MPV 10.7, Immature Gran % (Auto) 0.600, Neut % (Auto) 81.6 H, Lymph % (Auto) 8.0 L, [place] % (Auto) 9.6, Eos % (Auto) 0.0, Baso % (Auto) 0.2, Absolute Neuts (auto) 18.8 H, Absolute Lymphs (auto) 1.85, Nucleated RBC % 0, Differential Comment SCANNED, Diff Path Review December, Sodium 140, Potassium 5.4 H, Chloride 106, Carbon Dioxide 20.1 L, Anion Gap 14, BUN 50 H, Creatinine 2.22 H, Estim Creat Clear Calc 16.20 L, Est GFR (MDRD) Non-Af 21 L, BUN/Creatinine Ratio 22.7 H, Glucose 150 H, Calcium 8.7, Phosphorus 7.5 H, Magnesium 2.2, Total Bilirubin 0.97, AST 294 H, ALT 360 H, Alkaline Phosphatase 143 H, Total Protein 6.6, Albumin 3.4, Globulin 3.2, Albumin/Globulin Ratio 1.0,Lipase 40 11/18/24 02:55: WBC 23.3 H, RBC 5.11, Hgb 16.5 H, Hct 52.0 H, MCV 101.8 H, MCH 32.3 H, MCHC 31.7 L,RDW Std Deviation 51.6 H, RDW Coeff of Mildred 13.5, Plt Count 255, MPV 10.5, Immature Gran % (Auto) 0.600, Neut % (Auto) 83.5 H, Lymph % (Auto) 7.9 L, [place] % (Auto) 7.7, Eos % (Auto) 0.0, Baso % (Auto) 0.3, Absolute Neuts (auto) 19.4 H, Absolute Lymphs (auto) 1.84, Nucleated RBC % 0, Differential Comment SCANNED, Diff Path Review December, PT 18.8 H, INR 1.5, Sodium 140, Potassium 5.0, Chloride 106,Carbon Dioxide 20.1 L, Anion Gap 14, BUN 55 H, Creatinine 2.24 H, Estim Creat Clear Calc 16.06 L, Est GFR (MDRD) Non-Af 21 L, BUN/Creatinine Ratio 24.7 H, Glucose 140 H, Calcium 9.0, Total Bilirubin 0 .74, AST 224 H, ALT 325 H, Alkaline Phosphatase 141 H, Total Protein 6.6, Albumin 3.4, Globulin 3.2, Albumin/Globulin Ratio 1.1, TSH 0.997 Micro: Microbiology 11/17/24 18:55 Mucosa - Nasopharyngeal Respiratory Panel (PCR) - Final 11/17/24 18:30 Nasal Secretion MRSA (PCR) - Final 11/17/24 18:30 Urine Catheter - Llanos Legionella Antigen - Final 11/17/24 18:30 Urine Catheter - Llanos Streptococcus pneumoniae Antigen (M - Final 11/17/24 13:20 Mucosa - Nose SARS-CoV-2, Influenza & RSV (PCR) - Final Radiography Diagnostic Testing: Radiology Impression Chest X-Ray 11/17/24 15:21 IMPRESSION: 1. Bilateral airspace opacities, compatible with pneumonitis/pneumonia. 2. Moderate cardiomegaly. 3. Slight increased size of a right midlung pulmonary nodule, previously characterized as a granuloma. Without access to patient chart, this diagnosis can not be confirmed. Correlation with patient's chart recommended and possible outpatient nonemergent CT chest could be obtained for further characterization if clinically indicated, not recently performed and/or inability to confirm benign pathology. Reading Location: [facility] Hip/Pelvis X-Ray 11/17/24 15:21 IMPRESSION: DEGENERATIVE OSTEOARTHROSIS. NO ACUTE FINDINGS. Reading Location: [facility] Chest/Abdomen/Pelvis CT 11/17/24 20:40 IMPRESSION: 1. Right pleural effusion. 2. Right upper lobe calcified granuloma. 3. Mild centrilobular emphysematous changes. 4. Cardiac enlargement. 5. Chronic changes in the dependent lungs. 6. Total right humeral arthroplasty. 7. Status post cholecystectomy and hysterectomy.. 8. Balloon tip Llanos catheter. 9. Atherosclerotic calcific disease of the aorta and iliac arteries. 10. Postoperative changes of the lower anterior abdominal wall. 11. Mild compression of the inferior endplates, L3 and L4 may be related to remote trauma. Clinicalcorrelation recommended. 12. Other nonacute findings detailed above. Reading Location: [facility] Physical Exam Const alert and no apparent distress Constitutional Narrative: Somewhat somnolent, but arouses easily and answers questions. General Appearance: cooperative HEENT normocephalic and head/scalp atraumatic Eyes EOMs intact bilaterally, conjunctivae normal and no scleral icterus Neck supple General: trachea midline Chest inspection of chest normal Resp normal respiratory effort Auscultation: Negative for rales, rhonchi or wheezes Cardio regular rate and regular rhythm GI normal to inspection, nondistended, normoactive bowel sounds Extremity no clubbing, cyanosis or edema Skin no rashes or lesions noted Neuro CN's II-XII intact bilaterally and moves all extremities Psych Mood & Affect: flat affect Charges/Coding Procedures Hospitalists Procedures: 22791 Critical Care 1st Hr 11/18/24 1015 Cosigner Signature (if applicable): CC: ~ Signed [facility]2025 Progress note [facility] Medical Records Department [address] [place] [address] Progress Note - Hospitalist 11/18/2430 MR#: [id number] Acct: [id number] Name: LESLI ROSALES Rep #:[id number] : 1940 84 From: Kevin Robles MD PCP: SILVIA GUTHRIE Status:ADM IN Location: ICU ICU- Reason for Visit Reason for Visit: Diagnoses Sepsis, unspecified organism (11/17/24) Severe sepsis with septic shock (11/17/24) Subjective Subjective Patient is an 84-year-old lady who was admitted with progressive generalized weakness and low back pain imaging studies obtained on admission demonstrated bilateral airspace opacities compatible withpneumonitis/pneumonia. An assessment of septic shock secondary to pneumonia made admitted to the intensivecare unit for further management Objective Data Objective Data Vital Signs: Vital Signs Temp Pulse Resp BP Pulse Ox O2 Del Method O2 Flow Rate 99.8 F H 87 14 113/60 95 Nasal Cannula 3 11/18/24 03:00 11/18/24 07:10 11/18/24 07:10 11/18/24 07:03 11/18/24 07:10 11/18/24 07:10 11/18/24 07:10 Oxygen Flow Rate (L/min) 3 Oxygen Delivery Method Nasal Cannula Weight: 71.7 kg Body Mass Index (BMI) 30.9 Intake & Output: Intake and Output for Last 24 Hours 11/16/24 11/17/24 11/18/24 23:59 23:59 23:59 Intake Total 3777.36 / 3814.86 661.05 / 661.05 Output Total 125 / 125 Balance 3747.36 / 3784.86 536.05 / 536.05 Lab / Micro Data 11/18/24 02:55 11/18/24 02:55 Labs: Laboratory Results - last 24 hr 11/17/24 12:45: WBC 21.2 H, RBC 5.44 H, Hgb 17.7 H, Hct 56.6 H, MCV 104.0 H, MCH32.5 H, MCHC 31.3 L, RDW Std Deviation 53.3 H, RDW Coeff of Mildred 13.7, Plt Count 272, MPV 11.0, Immature Gran % (Auto) 0.700, Neut % (Auto) 85.3 H, Lymph % (Auto) 6.2 L, [place] % (Auto) 7.5, Eos % (Auto) 0.0, Baso % (Auto)0.3, Absolute Neuts (auto) 18.1 H, Absolute Lymphs (auto) 1.32, Nucleated RBC % 0, Diff Path ReviewMay foll, Sodium 142, Potassium 5.1, Chloride 102, Carbon Dioxide 21.9, Anion Gap 18 H, BUN 45 H, Creatinine 2.45 H, Estim Creat Clear Calc 15.17 L, Est GFR (MDRD) Non-Af 19 L, BUN/Creatinine Ratio 18.2, Glucose 160 H, Lactic Acid 4.1 H*, Calcium 9.6, Total Bilirubin 1.19, AST 474 H, ALT 435 H, Alkaline Phosphatase 168 H, Troponin T High Sens 482 H*, [place] [address] H, Total Protein 7.3, Albumin 3.7, Globulin 3.6, Albumin/Globulin Ratio 1.0 11/17/24 13:37: Urine Color Yellow, Urine Clarity Sl. Cloudy, Urine pH 6.0, Ur Specific Bim 1.020, Urine Protein 30 H, Urine Glucose (UA) Normal, Urine Ketones 15 H, Urine Occult Blood 10 H, Urine Nitrite Negative, Urine Bilirubin Negative, Urine Urobilinogen 1 H, Ur Leukocyte Esterase 25 H, Urine RBC 0 SEEN, Urine WBC 0-5 SEEN, Ur Squamous Epith Cells 0-5 SEEN, Urine Bacteria 0 SEEN, Urine Mucus 0 SEEN 11/17/24 15:15: Troponin T Hi Sens 2 Hr 441 H* 11/17/24 17:05: Troponin T Hi Sens 4Hr 407 H* 11/17/24 18:00: Lactic Acid 2.3 H* 11/17/24 21:40: WBC 23.1 H, RBC 5.12, Hgb 16.7 H, Hct 52.9 H, MCV 103.3 H, MCH 32.6 H, MCHC 31.6 L,RDW Std Deviation 52.3 H, RDW Coeff of Mildred 13.5, Plt Count 271, MPV 10.7, Immature Gran % (Auto) 0.600, Neut % (Auto) 81.6 H, Lymph % (Auto) 8.0 L, [place] % (Auto) 9.6, Eos % (Auto) 0.0, Baso % (Auto) 0.2, Absolute Neuts (auto) 18.8 H, Absolute Lymphs (auto) 1.85, Nucleated RBC % 0, Differential Comment SCANNED, Diff Path Review December foll, Sodium 140, Potassium 5.4 H, Chloride 106, Carbon Dioxide 20.1 L, Anion Gap 14, BUN 50 H, Creatinine 2.22 H, Estim Creat Clear Calc 16.20 L, Est GFR (MDRD) Non-Af 21 L, BUN/Creatinine Ratio 22.7 H, Glucose 150 H, Calcium 8.7, Phosphorus 7.5 H, Magnesium 2.2, Total Bilirubin 0.97, AST 294 H, ALT 360 H, Alkaline Phosphatase 143 H, Total Protein 6.6, Albumin 3.4, Globulin 3.2, Albumin/Globulin Ratio 1.0,Lipase 40 11/18/24 02:55: WBC 23.3 H, RBC 5.11, Hgb 16.5 H, Hct 52.0 H, MCV 101.8 H, MCH 32.3 H, MCHC 31.7 L,RDW Std Deviation 51.6 H, RDW Coeff of Mildred 13.5, Plt Count 255, MPV 10.5, Immature Gran % (Auto) 0.600, Neut % (Auto) 83.5 H, Lymph % (Auto) 7.9 L, [place] % (Auto) 7.7, Eos % (Auto) 0.0, Baso % (Auto) 0.3, Absolute Neuts (auto) 19.4 H, Absolute Lymphs (auto) 1.84, Nucleated RBC % 0, Differential Comment SCANNED, Diff Path Review May foll, PT 18.8 H, INR 1.5, Sodium 140, Potassium 5.0, Chloride 106,Carbon Dioxide 20.1 L, Anion Gap 14, BUN 55 H, Creatinine 2.24 H, Estim Creat Clear Calc 16.06 L, Est GFR (MDRD) Non-Af 21 L, BUN/Creatinine Ratio 24.7 H, Glucose 140 H, Calcium 9.0, Total Bilirubin 0 .74, AST 224 H, ALT 325 H, Alkaline Phosphatase 141 H, Total Protein 6.6, Albumin 3.4, Globulin 3.2, Albumin/Globulin Ratio 1.1, TSH 0.997 Micro: Microbiology 11/17/24 18:55 Mucosa - Nasopharyngeal Respiratory Panel (PCR) - Final 11/17/24 18:30 Nasal Secretion MRSA (PCR) - Final 11/17/24 18:30 Urine Catheter - Llanos Legionella Antigen - Final 11/17/24 18:30 Urine Catheter - Llanos Streptococcus pneumoniae Antigen (M - Final 11/17/24 13:20 Mucosa - Nose SARS-CoV-2, Influenza & RSV (PCR) - Final Radiography Diagnostic Testing: Radiology Impression Chest X-Ray 11/17/24 15:21 IMPRESSION: 1. Bilateral airspace opacities, compatible with pneumonitis/pneumonia. 2. Moderate cardiomegaly. 3. Slight increased size of a right midlung pulmonary nodule, previously characterized as a granuloma. Without access to patient chart, this diagnosis can not be confirmed. Correlation with patient's chart recommended and possible outpatient nonemergent CT chest could be obtained for further characterization if clinically indicated, not recently performed and/or inability to confirm benign pathology. Reading Location: [facility] Hip/Pelvis X-Ray 11/17/24 15:21 IMPRESSION: DEGENERATIVE OSTEOARTHROSIS. NO ACUTE FINDINGS. Reading Location: [facility] Chest/Abdomen/Pelvis CT 11/17/24 20:40 IMPRESSION: 1. Right pleural effusion. 2. Right upper lobe calcified granuloma. 3. Mild centrilobular emphysematous changes. 4. Cardiac enlargement. 5. Chronic changes in the dependent lungs. 6. Total right humeral arthroplasty. 7. Status post cholecystectomy and hysterectomy.. 8. Balloon tip Llanos catheter. 9. Atherosclerotic calcific disease of the aorta and iliac arteries. 10. Postoperative changes of the lower anterior abdominal wall. 11. Mild compression of the inferior endplates, L3 and L4 may be related to remote trauma. Clinicalcorrelation recommended. 12. Other nonacute findings detailed above. Reading Location: [facility] Physical Exam Narrative GENERAL: Patient appears ill looking HEENT: Atraumatic; normocephalic EYES; Anicteric, Normal Conjunctiva NECK; supple, normal thyroid, RESPIRATORY: Diminished to auscultation CARDIOVASCULAR: Regular S1 S2, GI: soft, normoactive bowel sounds, : No Renal angle tenderness; EXTREMITIES: No edema, no clubbing, MUSCULOSKELETAL: no muscle wasting NEURO: Awake; no lateralizing signs. SKIN: No Rash PSYCH; Flat affect Assessment & Plan Assessment/Plan (1) Septic shock: PLAN: Plan Patient is an 84-year-old lady who was admitted with progressive generalized weakness and low back pain imaging studies obtained on admission demonstrated bilateral airspace opacities compatible withpneumonitis/pneumonia. An assessment of septic shock secondary to pneumonia made admitted to the intensivecare unit for further management . Septic shock ? Secondary to pneumonia Patient presented with progressive generalized weakness was found to be hypotensive with elevated WBC count and elevated lactic acid levels. Patient was admitted to the intensive care unit managed with IV fluid resuscitation, broad- spectrum antibiotic therapy after cultures have been sent patient placed on Levophed and still remains on Levophed as of the morning of 11/18/2024. Response to therapy being monitored with serial lactic acid levels 2. Abnormal urinalysis ? Patient did not have pyuria however had elevated leukocyte Estrace patient remains on broad-spectrum antibiotic therapy cultures pending 3. Acute hypoxia ? Secondary to pneumonia management as discussed above patient was also placed on supplemental oxygen titrated to keep saturation greater than 90 4. Low back pain ? Imaging studies obtained demonstrated Mild compression of the inferior endplates, L3 and L4 may be related to remote trauma. Patient being managed with pain meds as well as muscle relaxant 5. Elevated troponin secondary to demand ischemia from septic shock -Patient with elevated troponin of 482 and proBNP of nearly 22,000, suspect thatthis is part of theendorgan damage from her septic shock. Patient being managed with serial troponins ordered 2D echo for EF assessment 6. Acute kidney injury ? Suspected to be secondary to ATN from septic shock. Baseline creatinine 0.7 creatinine on admission 2.45. Patient being managed with IV fluid with monitoring monitoring of response to therapy with serial BMP 7. Acute transaminitis ? Secondary to shock liver. Repeated LFTs in a.m. for follow-up 8. Paroxysmal atrial fibrillation ? Rate controlled with atenolol which is currently being held given patient low blood pressure patient is also on systemic anticoagulation with rivaroxaban did continue 8. Essential hypertension ? Patient antihypertensives held given her presentation 9. Psoriatic arthritis -On Skyrizi every 3 month self injection 10. GERD -Continue home famotidine 11. DVT prophylaxis ? Already anticoagulated with rivaroxaban Time spent in the patient's overall evaluation,decision-making process, review of diagnostic data, adjustment of management, discussion with other providers, nursing nursing and ancillary staff involved in patient's care documentation, 55minutes Charges/Coding Visit Charges Inpatient E&M: 92490 Subs Hosp L3 11/18/24 0836 Cosigner Signature (if applicable): CC: ~ Signed [facility]2025 Consult note Author Lorna [facility] Note Date/Time November 17, 2024 11: 40pm [facility] Medical Records Department [address] [place] [address] Consultation - Superintendent Power 11/17/242043 MR#: [id number] Acct: [id number] Name: LESLI ROSALES Jose Alberto Rep #:[id number] : 1940 84 From: Lorna Salvador MD PCP: SILVIA GUTHRIE Status:ADM IN Location: ICU ICU04-[address] Lorna Salvador MD on 11/17/24 at 2340 Addendum ADDENDUM Reviewed repeat labs and imaging. No e/o pneumonia on CT chest. Stop Doxy. K elevated Calcium, bicarb, kayexlate ordered Follow renal panel 11/17/24 2340<Electronically signed by Lorna Salvador MD> Cosigner Signature (if applicable): cc: SILVIA GUTHRIE ~* Signed HPI Consult Data Date of Consult: 11/17/24 HPI Narrative HPI Narrative: 84y/o F w. Afib on eliquis, COPD on home O2 2L reports 2 months of pain in her back and hips after assisting her up after falling. She reports she has seen her PCP and pain doctor for this, XR done without significant pathology. She called ambulance today because pain had become severe over her whole body aswell as weakness and fatigue and poor PO intake x2 days. She had 1 episode of diarrhea today after no BM for several days. SHe also noted feeling SOB. She denied any fever, chills, MCHUGH, sore throat, chest pain, cough, n/v or RYAN. In the ED she was noted to have hypotension hypoxia, leukocytosis. She was givensepsis bolus, broad spectrum abx and started on Levophed for refractory hypotension. On my eval she is on Levophed at 20mcg/min, 2 L NC. She received 4 mg of Morphine 30 min prior and reports pain has improved. [facility] Medical History (Updated 11/17/24 @ 18:37 by Mindy Tierney) Anxiety Depression Chronic pain GERD (gastroesophageal reflux disease) On home oxygen therapy Atrial fibrillation Congestive heart failure (CHF) Hypertension Shingles Psoriatic arthritis COPD (chronic obstructive pulmonary disease) A-fib Home Medications ?Medication ?Instructions ?Recorded ?Last Taken ?Type atenolol 25 mg tablet 25 mg PO DAILY 06/26/21 Unkn own History famotidine 20 mg tablet 20 mg PO DAILY 06/26/21 Unkn own History folic acid 1 mg tablet 1 mg PO DAILY 06/26/21 Unkno wn History ipratropium bromide 0.02 % 2 ml inhalation DAILY 06/26 Unknown History solution for inhalation rivaroxaban 20 mg tablet (Xarelto) 20 mg PO DAILY 02/08 Unknown History amitriptyline 25 mg tablet 25 mg PO QHS 11/17/24 Unkno wn History cholecalciferol (vitamin D3) 50 50 mcg PO DAILY Unknown History mcg (2,000 unit) capsule furosemide 20 mg tablet 20 mg PO DAILY 11/17/24 Unkn own History Allergy/AdvReac Type Severity Reaction Status Date / Time No Known Allergies Allergy Verified 11/17/24 12:43 Surgical History History of partial hysterectomy History of bladder suspension procedure History of appendectomy History of cholecystectomy H/O hernia repair Social History household members: none Smoking Status: Former smoker substance use type: does not use ROS ROS Narrative All systems reviewed and negative except per HPI Objective Data Objective Data Vital Signs: Vital Signs Last response 3 Temperature 37.2 C 11/17/24 20:00 Temperature Source Core 11/17/24 20:00 Pulse Rate 69 11/17/24 20:00 Respiratory Rate 14 11/17/24 20:00 Respiratory Effort Normal 11/17/24 18:00 Respiratory Depth Shallow 11/17/24 18:00 Respiratory Pattern Bradypnea 11/17/24 19:00 Blood Pressure 110/55 L 11/17/24 20:00 Blood Pressure Mean 73 11/17/24 20:00 Blood Pressure Source Monitor 11/17/24 20:00 Blood Pressure Position Supine 11/17/24 20:00 Blood Pressure Location Right Forearm 11/17/24 20:00 Pulse Ox 97 11/17/24 20:00 Oxygen Delivery Method Nasal Cannula 11/17/24 20:00 Oxygen Flow Rate (L/min) 2 11/17/24 20:00 I&O: I&O Last 24 Hours 3 11/16/24 11/17/24 11/17/24 23:59 11:59 23:59 Intake Total 3404.11 / 3404.11 Output Total Balance 3374.11 / 3374.11 I&O: Total Stay 3 11/17/24 12:41 thru 11/17/24 20:00 Intake Total 3404.11 Output Total 30 Balance 3374.11 Current Meds Ordered / Administered: Current meds ordered / Administered 3 Generic Name Dose Route Start Last Admin Trade Name Freq PRN Reason Stop Dose Admin Albuterol Sulfate 2.5 mg 11/17/24 17:50 Albuterol 2.5 Mg/3 Ml Vial.Neb. INHALATION Q2H PRN PRN SOB &/OR WHEEZING Albuterol/Ipratropium 3 ml 11/17/24 17:50 11/17/24 19:00 Ipratropium/Albuterol Sulfate 3 Ml Ampul.Neb INHALATION 3 ml Q6H.RT SUKHJINDER Administration Compound Med 3 click 11/17/24 22:00 Arthritis Pain Compound 60 Click Tube TOPICAL BID [facility] Protocol Famotidine 20 mg 11/18/24 10:00 Famotidine 20 Mg Tablet PO DAILY [facility] Guaifenesin 1,200 mg 11/17/24 22:00 Guaifenesin 1,200 Mg Tablet PO BID [facility] Norepinephrine Bitartrate 8 mg 250 mls @ 9.375 mls/hr 11/17/24 14:00 11/18/2519:00 / Sodium Chloride CONT INF 20 mcg/min .[id number] SUKHJINDER 37.5 mls/hr Titration Protocol 5 MCG/MIN Sodium Chloride 1,000 mls @ 75 mls/hr 11/17/24 17:50 11/17/24 18:09 IV 11/18/24 07:09 75 mls/hr .[id number] SUKHJINDER Administration Piperacillin Sod/Tazobactam 50 mls @ 12.5 mls/hr 11/17/24 22:00 Sod 3.375 gm/ Sodium Chloride IV Q12 SUKHJINDER Vancomycin IV-PHARMACY TO DOSE 500 mls @ 250 mls/hr 11/17/24 17:50 1 each/ Sodium Chloride IV X1 PRN Rx to Dose Protocol Sodium Chloride 100 mls @ 15 mls/hr 11/17/24 17:58 IV .Q6H40M PRN Saline Flush Sodium Chloride 100 mls @ 15 mls/hr 11/17/24 17:58 IV .Q6H40M PRN Additional IVPB Infusion Vasopressin 20 units/ Sodium 25 mls @ 2.25 mls/hr 11/17/24 20:40 Chloride CONT INF .Q11H7M [facility] 0.03 UNITS/MIN Melatonin 3 mg 11/17/24 17:50 Melatonin 3 Mg Tablet PO QHS PRN PRN INSOMNIA Morphine Sulfate 2 mg 11/17/24 17:50 11/17/24 20:03 Morphine 2 Mg/Ml Syringe IV 2 mg Q3H PRN PRN Administration Pain Score 6-10 Ondansetron HCl 4 mg 11/17/24 17:50 Ondansetron 4 Mg/2 Ml Vial IV Q8H PRN PRN NAUSEA/VOMITING Oxycodone HCl 2.5 mg 11/17/24 17:50 11/17/24 18:14 Oxycodone 5 Mg Tablet PO 2.5 mg Q4H PRN PRN Administration Pain Score 4-10 Rivaroxaban 15 mg 11/18/24 17:00 Rivaroxaban 15 Mg Tablet PO DINNER SUKHJINDER Senna/Docusate Sodium 2 tablet 11/17/24 17:50 Senna/Docusate Sodium 1 Tablet PO BID PRN PRN Constipation Sodium Chloride 10 - 40 ml 11/17/24 17:58 11/17/24 20:03 0.9 % Nacl (Sterile) Posiflush 10 Ml IV 40 ml UD PRN Administration Port access or dressing change Sodium Chloride 10 - 40 ml 11/17/24 17:58 0.9% Saline Lock 10 Ml Syringe IV UD PRN Multilumen/White Flush Sodium Chloride 10 - 40 ml 11/17/24 17:58 0.9% Saline Lock 10 Ml Syringe IV UD PRN SALINE FLUSH Vancomycin Protocol 1 lab 11/19/24 05:00 Vancomycin Trough/Random Due 11/19/24 07:00 DAILY SUKHJINDER Physical Exam Narrative Gen: Alert and oriented, NAD ENT: MMM CV: S1S2 Irregular Pulm: Coarse BS bilaterally on 2 L NC Abd Soft/nt Extrem: No c/c/e Lab / Micro Data 11/17/24 12:45 11/17/24 12:45 Labs: Laboratory Results - last 24 hr 11/17/24 12:45: WBC 21.2 H, RBC 5.44 H, Hgb 17.7 H, Hct 56.6 H, MCV 104.0 H, MCH32.5 H, MCHC 31.3 L, RDW Std Deviation 53.3 H, RDW Coeff of Mildred 13.7, Plt Count 272, MPV 11.0, Immature Gran % (Auto) 0.700, Neut % (Auto) 85.3 H, Lymph % (Auto) 6.2 L, [place] % (Auto) 7.5, Eos % (Auto) 0.0, Baso % (Auto) 0.3, Absolute Neuts (auto) 18.1 H, Absolute Lymphs (auto) 1.32, Nucleated RBC % 0, Diff Path Review December, Sodium 142, Potassium 5.1, Chloride 102, Carbon Dioxide 21.9, Anion Gap 18 H, BUN 45 H, Creatinine 2.45 H, Estim Creat Clear Calc 15.17 L, Est GFR (MDRD) Non-Af 19 L, BUN/Creatinine Ratio 18.2, Glucose 160 H, Lactic Acid 4.1 H*, Calcium 9.6, Total Bilirubin 1.19, AST 474 H, ALT 435 H, Alkaline Phosphatase 168 H, Troponin T High Sens 482 H*, [place] [address] H, Total Protein 7.3, Albumin 3.7, Globulin 3.6, Albumin/Globulin Ratio 1.0 11/17/24 13:37: Urine Color Yellow, Urine Clarity Sl. Cloudy, Urine pH 6.0, Ur Specific Bim 1.020, Urine Protein 30 H, Urine Glucose (UA) Normal, Urine Ketones 15 H, Urine Occult Blood 10 H, Urine Nitrite Negative, Urine Bilirubin Negative, Urine Urobilinogen 1 H, Ur Leukocyte Esterase 25 H, Urine RBC 0 SEEN, Urine WBC 0-5 SEEN, Ur Squamous Epith Cells 0-5 SEEN, Urine Bacteria 0 SEEN, Urine Mucus 0 SEEN 11/17/24 15:15: Troponin T Hi Sens 2 Hr 441 H* 11/17/24 17:05: Troponin T Hi Sens 4Hr 407 H* 11/17/24 18:00: Lactic Acid 2.3 H* Micro: Microbiology 11/17/24 18:30 Nasal Secretion MRSA (PCR) - Final 11/17/24 18:30 Urine Catheter - Llanos Legionella Antigen - Final 11/17/24 18:30 Urine Catheter - Llanos Streptococcus pneumoniae Antigen (M - Final 11/17/24 13:20 Mucosa - Nose SARS-CoV-2, Influenza & RSV (PCR) - Final Imaging Radiology Impression Chest X-Ray 11/17/24 15:21 IMPRESSION: 1. Bilateral airspace opacities, compatible with pneumonitis/pneumonia. 2. Moderate cardiomegaly. 3. Slight increased size of a right midlung pulmonary nodule, previously characterized as a granuloma. Without access to patient chart, this diagnosis can not be confirmed. Correlation with patient's chart recommended and possible outpatient nonemergent CT chest could be obtained for further characterization if clinically indicated, not recently performed and/or inability to confirm benign pathology. Reading Location: [facility] Hip/Pelvis X-Ray 11/17/24 15:21 IMPRESSION: DEGENERATIVE OSTEOARTHROSIS. NO ACUTE FINDINGS. Reading Location: [facility] Assessment and Plan . Assessment and plan: ASSESSMENT: #Septic shock #Pneumonia #Elevated LFTs #Bilateral hip/back pain #Elevated trop likely demand #Afib, rate controlled #H/O COPD on baseline oxygen PLAN: -S/P Sepsis bolus -Continue broad spectrum abx, add Doxy for atypical coverage -Levophed. Add Vasopressin to keep MAP >65 -Stress dose steroids -CT chest/abd/pelvis -Follow LFTs -Continue Xarelto -Supplemental O2 -Obtain echo PPX: Anticoagulated Critical Care Time: 60 min The entirety of this encounter was done via Telemedicine 11/17/242100 <Electronically signed by Lorna Salvador MD> Cosigner Signature (if applicable): CC: SILVIA GUTHRIE~ Signed [facility] Work Phone: [phone] Consult note [facility] Medical Records Department [address] [place] [address] Consultation - Superintendent Power 11/17/242043 MR#: [id number] Acct: [id number] Name: LESLI ROSALES Rep #:[id number] : 1940 84 From: Lorna Salvador MD PCP: SILVIA GUTHRIE Status:ADM IN Location: ICU ICU04-[address] Lorna Salvador MD on 11/17/24 at 2340 Addendum ADDENDUM Reviewed repeat labs and imaging. No e/o pneumonia on CT chest. Stop Doxy. K elevated Calcium, bicarb, kayexlate ordered Follow renal panel 11/17/242339 Cosigner Signature (if applicable): cc: SILVIA GUTHRIE ~* Signed HPI Consult Data Date of Consult: 11/17/24 HPI Narrative HPI Narrative: 84y/o F w. Afib on eliquis, COPD on home O2 2L reports 2 months of pain in her back and hips after assisting her up after falling. She reports she has seen her PCP and pain doctor for this, XR done without significant pathology. She called ambulance today because pain had become severe overher whole body aswell as weakness and fatigue and poor PO intake x2 days. She had 1 episode of diarrhea today after no BM for several days. SHe also noted feeling SOB. She denied any fever, chills, MCHUGH, sore throat, chest pain, cough, n/v or RYAN. In the ED she was noted to have hypotension hypoxia, leukocytosis. She was givensepsis bolus, broadspectrum abx and started on Levophed for refractory hypotension. On my eval she is on Levophed at 20mcg/min, 2 L NC. She received 4 mg of Morphine 30 min prior and reports pain has improved. [facility] Medical History (Updated 11/17/24 @ 18:37 by Mindy Tierney) Anxiety Depression Chronic pain GERD (gastroesophageal reflux disease) On home oxygen therapy Atrial fibrillation Congestive heart failure (CHF) Hypertension Shingles Psoriatic arthritis COPD (chronic obstructive pulmonary disease) A-fib Home Medications ?Medication ?Instructions ?Recorded ?Last Taken ?Type atenolol 25 mg tablet 25 mg PO DAILY 06/26/21 Unkn own History famotidine 20 mg tablet 20 mg PO DAILY 06/26/21 Unkn own History folic acid 1 mg tablet 1 mg PO DAILY 06/26/21 Unkno wn History ipratropium bromide 0.02 % 2 ml inhalation DAILY 06/26 Unknown History solution for inhalation rivaroxaban 20 mg tablet (Xarelto) 20 mg PO DAILY 02/08 Unknown History amitriptyline 25 mg tablet 25 mg PO QHS 11/17/24 Unkno wn History cholecalciferol (vitamin D3) 50 50 mcg PO DAILY Unknown History mcg (2,000 unit) capsule furosemide 20 mg tablet 20 mg PO DAILY 11/17/24 Unkn own History Allergy/AdvReac Type Severity Reaction Status Date / Time No Known Allergies Allergy Verified 11/17/24 12:43 Surgical History History of partial hysterectomy History of bladder suspension procedure History of appendectomy History of cholecystectomy H/O hernia repair Social History household members: none Smoking Status: Former smoker substance use type: does not use ROS ROS Narrative All systems reviewed and negative except per HPI Objective Data Objective Data Vital Signs: Vital Signs Last response 3 Temperature 37.2 C 11/17/24 20:00 Temperature Source Core 11/17/24 20:00 Pulse Rate 69 11/17/24 20:00 Respiratory Rate 14 11/17/24 20:00 Respiratory Effort Normal 11/17/24 18:00 Respiratory Depth Shallow 11/17/24 18:00 Respiratory Pattern Bradypnea 11/17/24 19:00 Blood Pressure 110/55 L 11/17/24 20:00 Blood Pressure Mean 73 11/17/24 20:00 Blood Pressure Source Monitor 11/17/24 20:00 Blood Pressure Position Supine 11/17/24 20:00 Blood Pressure Location Right Forearm 11/17/24 20:00 Pulse Ox 97 11/17/24 20:00 Oxygen Delivery Method Nasal Cannula 11/17/24 20:00 Oxygen Flow Rate (L/min) 2 11/17/24 20:00 I&O: I&O Last 24 Hours 3 11/16/24 11/17/24 11/17/24 23:59 11:59 23:59 Intake Total 3404.11 / 3404.11 Output Total Balance 3374.11 / 3374.11 I&O: Total Stay 3 11/17/24 12:41 thru 11/17/24 20:00 Intake Total 3404.11 Output Total 30 Balance 3374.11 Current Meds Ordered / Administered: Current meds ordered / Administered 3 Generic Name Dose Route Start Last Admin Trade Name Freq PRN Reason Stop Dose Admin Albuterol Sulfate 2.5 mg 11/17/24 17:50 Albuterol 2.5 Mg/3 Ml Vial.Neb. INHALATION Q2H PRN PRN SOB &/OR WHEEZING Albuterol/Ipratropium 3 ml 11/17/24 17:50 11/17/24 19:00 Ipratropium/Albuterol Sulfate 3 Ml Ampul.Neb INHALATION 3 ml Q6H.RT SUKHJINDER Administration Compound Med 3 click 11/17/24 22:00 Arthritis Pain Compound 60 Click Tube TOPICAL BID SUKHJINDER Protocol Famotidine 20 mg 11/18/24 10:00 Famotidine 20 Mg Tablet PO DAILY SUKHJINDER Guaifenesin 1,200 mg 11/17/24 22:00 Guaifenesin 1,200 Mg Tablet PO BID SUKHJINDER Norepinephrine Bitartrate 8 mg 250 mls @ 9.375 mls/hr 11/17/24 14:00 11/18/2519:00 / Sodium Chloride CONT INF 20 mcg/min .[id number] SUKHJINDER 37.5 mls/hr Titration Protocol 5 MCG/MIN Sodium Chloride 1,000 mls @ 75 mls/hr 11/17/24 17:50 11/17/24 18:09 IV 11/18/24 07:09 75 mls/hr .[id number] SUKHJINDER Administration Piperacillin Sod/Tazobactam 50 mls @ 12.5 mls/hr 11/17/24 22:00 Sod 3.375 gm/ Sodium Chloride IV Q12 SUKHJINDER Vancomycin IV-PHARMACY TO DOSE 500 mls @ 250 mls/hr 11/17/24 17:50 1 each/ Sodium Chloride IV X1 PRN Rx to Dose Protocol Sodium Chloride 100 mls @ 15 mls/hr 11/17/24 17:58 IV .Q6H40M PRN Saline Flush Sodium Chloride 100 mls @ 15 mls/hr 11/17/24 17:58 IV .Q6H40M PRN Additional IVPB Infusion Vasopressin 20 units/ Sodium 25 mls @ 2.25 mls/hr 11/17/24 20:40 Chloride CONT INF .Q11H7M SUKHJINDER 0.03 UNITS/MIN Melatonin 3 mg 11/17/24 17:50 Melatonin 3 Mg Tablet PO QHS PRN PRN INSOMNIA Morphine Sulfate 2 mg 11/17/24 17:50 11/17/24 20:03 Morphine 2 Mg/Ml Syringe IV 2 mg Q3H PRN PRN Administration Pain Score 6-10 Ondansetron HCl 4 mg 11/17/24 17:50 Ondansetron 4 Mg/2 Ml Vial IV Q8H PRN PRN NAUSEA/VOMITING Oxycodone HCl 2.5 mg 11/17/24 17:50 11/17/24 18:14 Oxycodone 5 Mg Tablet PO 2.5 mg Q4H PRN PRN Administration Pain Score 4-10 Rivaroxaban 15 mg 11/18/24 17:00 Rivaroxaban 15 Mg Tablet PO DINNER SUKHJINDER Senna/Docusate Sodium 2 tablet 11/17/24 17:50 Senna/Docusate Sodium 1 Tablet PO BID PRN PRN Constipation Sodium Chloride 10 - 40 ml 11/17/24 17:58 11/17/24 20:03 0.9 % Nacl (Sterile) Posiflush 10 Ml IV 40 ml UD PRN Administration Port access or dressing change Sodium Chloride 10 - 40 ml 11/17/24 17:58 0.9% Saline Lock 10 Ml Syringe IV UD PRN Multilumen/White Flush Sodium Chloride 10 - 40 ml 11/17/24 17:58 0.9% Saline Lock 10 Ml Syringe IV UD PRN SALINE FLUSH Vancomycin Protocol 1 lab 11/19/24 05:00 Vancomycin Trough/Random Due 11/19/24 07:00 DAILY SUKHJINDER Physical Exam Narrative Gen: Alert and oriented, NAD ENT: MMM CV: S1S2 Irregular Pulm: Coarse BS bilaterally on 2 L NC Abd Soft/nt Extrem: No c/c/e Lab / Micro Data 11/17/24 12:45 11/17/24 12:45 Labs: Laboratory Results - last 24 hr 11/17/24 12:45: WBC 21.2 H, RBC 5.44 H, Hgb 17.7 H, Hct 56.6 H, MCV 104.0 H, MCH32.5 H, MCHC 31.3 L, RDW Std Deviation 53.3 H, RDW Coeff of Mildred 13.7, Plt Count 272, MPV 11.0, Immature Gran % (Auto) 0.700, Neut % (Auto) 85.3 H, Lymph % (Auto) 6.2 L, [place] % (Auto) 7.5, Eos % (Auto) 0.0, Baso % (Auto)0.3, Absolute Neuts (auto) 18.1 H, Absolute Lymphs (auto) 1.32, Nucleated RBC % 0, Diff Path ReviewMay foll, Sodium 142, Potassium 5.1, Chloride 102, Carbon Dioxide 21.9, Anion Gap 18 H, BUN 45 H, Creatinine 2.45 H, Estim Creat Clear Calc 15.17 L, Est GFR (MDRD) Non-Af 19 L, BUN/Creatinine Ratio 18.2, Glucose 160 H, Lactic Acid 4.1 H*, Calcium 9.6, Total Bilirubin 1.19, AST 474 H, ALT 435 H, Alkaline Phosphatase 168 H, Troponin T High Sens 482 H*, [place] [address] H, Total Protein 7.3, Albumin 3.7, Globulin 3.6, Albumin/Globulin Ratio 1.0 11/17/24 13:37: Urine Color Yellow, Urine Clarity Sl. Cloudy, Urine pH 6.0, Ur Specific Bim 1.020, Urine Protein 30 H, Urine Glucose (UA) Normal, Urine Ketones 15 H, Urine Occult Blood 10 H, Urine Nitrite Negative, Urine Bilirubin Negative, Urine Urobilinogen 1 H, Ur Leukocyte Esterase 25 H, Urine RBC 0 SEEN, Urine WBC 0-5 SEEN, Ur Squamous Epith Cells 0-5 SEEN, Urine Bacteria 0 SEEN, Urine Mucus 0 SEEN 11/17/24 15:15: Troponin T Hi Sens 2 Hr 441 H* 11/17/24 17:05: Troponin T Hi Sens 4Hr 407 H* 11/17/24 18:00: Lactic Acid 2.3 H* Micro: Microbiology 11/17/24 18:30 Nasal Secretion MRSA (PCR) - Final 11/17/24 18:30 Urine Catheter - Llanos Legionella Antigen - Final 11/17/24 18:30 Urine Catheter - Llanos Streptococcus pneumoniae Antigen (M - Final 11/17/24 13:20 Mucosa - Nose SARS-CoV-2, Influenza & RSV (PCR) - Final Imaging Radiology Impression Chest X-Ray 11/17/24 15:21 IMPRESSION: 1. Bilateral airspace opacities, compatible with pneumonitis/pneumonia. 2. Moderate cardiomegaly. 3. Slight increased size of a right midlung pulmonary nodule, previously characterized as a granuloma. Without access to patient chart, this diagnosis can not be confirmed. Correlation with patient's chart recommended and possible outpatient nonemergent CT chest could be obtained for further characterization if clinically indicated, not recently performed and/or inability to confirm benign pathology. Reading Location: [facility] Hip/Pelvis X-Ray 11/17/24 15:21 IMPRESSION: DEGENERATIVE OSTEOARTHROSIS. NO ACUTE FINDINGS. Reading Location: [facility] Assessment and Plan . Assessment and plan: ASSESSMENT: #Septic shock #Pneumonia #Elevated LFTs #Bilateral hip/back pain #Elevated trop likely demand #Afib, rate controlled #H/O COPD on baseline oxygen PLAN: -S/P Sepsis bolus -Continue broad spectrum abx, add Doxy for atypical coverage -Levophed. Add Vasopressin to keep MAP >65 -Stress dose steroids -CT chest/abd/pelvis -Follow LFTs -Continue Xarelto -Supplemental O2 -Obtain echo PPX: Anticoagulated Critical Care Time: 60 min The entirety of this encounter was done via Telemedicine 11/17/24 2101 Cosigner Signature (if applicable): CC: SILVIA GUTHRIE~ Signed [facility]03-30[facility]2025 Radiology Diagnostic study note [facility] Imaging Services [address] [place] [address] CT Chest, Abd, Pelvis [facility] MR#: [id number] Acct: [id number] Name: LESLI ROSALES Rep #: [id number] : 1940 F 84 From: Bertha Balderas MD PCP: SIVLIA GUTHRIE Status: ADM IN Study:CT Chest, Abd, Pelvis WO Cont Date of E seble: 11/17/24 Exam# [id number] Ordering Dr: Gerardo Salvador MD PROCEDURE: CT CHEST, ABD, PELVIS WO CONT 11/17/2024 REASON FOR EXAM: SEPTIC SHOCK TECHNIQUE: Chest, abdomen and pelvis CT without intravenous contrast. Contiguous axial scans of 2.5 mm slice thicknesses. Sagittal and coronal reconstruction images wereobtained. One or more dose reduction techniques were used (e.g., automated exposure control, adjustment of mAand/or kv according to patient size, use of iterative reconstruction technique). COMPARISON: Chest radiograph dated 11/17/2024. FINDINGS: CT CHEST: Lungs and Airways: The lungs are normally expanded and clear. Mild centrilobular emphysematous changes. Calcified granuloma in the anterior right upper lobe measuring 1.4 x 1.1 cm. Parenchymal scarring and/or hypoventilatory changes in the dependent lungs. Pleura: Small amount of pleural fluid layers dependently in the right goran thorax. Heart: [id number] cardiac enlargement Pericardium: No thickening. No pericardial effusion. Coronary arteries: Mild coronary artery calcifications. Thoracic Aorta: No thoracic aortic aneurysm or dissection. Pulmonary Vessels: No large central filling defects. Mediastinum: No mediastinal hilar or axillary lymphadenopathy. Thyroid:No nodules. Bones: A right total humeral arthroplasty. Multilevel spondylosis. Soft tissues: Unremarkable. CT ABDOMEN / PELVIS: Noncontrast technique limits evaluation of the abdominal and pelvic viscera. Liver: Unremarkable. Prominent common bile duct most likely compensatory due tocholecystectomy. Gallbladder: Surgically absent gallbladder. Spleen: Normal. Pancreas: Unremarkable. Adrenals: No masses or abnormal thickening. Kidneys: Unremarkable. Bladder: Balloon tip Llanos catheter. Iatrogenic air. Reproductive Organs: Uterus surgically absent. Bowel: Unremarkable. Appendix: No signs of appendicitis. Lymph nodes: No suspicious adenopathy. Vasculature: Moderate to severe atherosclerotic calcific disease of the aortoiliac arteries. Peritoneum / Retroperitoneum: No free fluid. No masses. No free air. Anterior abdominal wall: Postoperative findings of the abdominopelvic wall anteriorly most likely from previous ventral hernia repair. Bones: Multilevel spondylosis and degenerative disc disease. Mild compression of the inferior endplates of L3 and L4. CT/CT Chest, Abd, Pelvis [facility] IMPRESSION: 1. Right pleural effusion. 2. Right upper lobe calcified granuloma. 3. Mild centrilobular emphysematous changes. 4. Cardiac enlargement. 5. Chronic changes in the dependent lungs. 6. Total right humeral arthroplasty. 7. Status post cholecystectomy and hysterectomy.. 8. Balloon tip Llanos catheter. 9. Atherosclerotic calcific disease of the aorta and iliac arteries. 10. Postoperative changes of the lower anterior abdominal wall. 11. Mild compression of the inferior endplates, L3 and L4 may be related to remote trauma. Clinicalcorrelation recommended. 12. Other nonacute findings detailed above. Reading Location: [facility] CC: Dr. Lorna Salvador MD; SILVIA GUTHRIE ~ [employer]: Signed [facility]03-30-2025 Discharge summary Author Reza Pedraza [facility] Note Date/Time November 17, 2024 6:4 9pm [facility] Medical Records Department [address] [place] [address] Emergency Department Summary 11/17/24 MR#: [id number] Acct: [id number] Name: LESLI ROSALES Rep #:[id number] : 1940 84 From: Reza Ballard PCP: SILVIA GUTHRIE Status:ADM IN Location: ICU ICU-1 HPI History of Present Illness Chief Complaint: Lower Extremity Injury [facility] Medical History (Updated 11/17/24 @ 18:37 by Mindy Tierney) Anxiety Depression Chronic pain GERD (gastroesophageal reflux disease) On home oxygen therapy Atrial fibrillation Congestive heart failure (CHF) Hypertension Shingles Psoriatic arthritis COPD (chronic obstructive pulmonary disease) A-fib Home Medications ?Medication ?Instructions ?Recorded ?Last Taken ?Type atenolol 25 mg tablet 25 mg PO DAILY 06/26/21 Unkn own History famotidine 20 mg tablet 20 mg PO DAILY 06/26/21 Unkn own History folic acid 1 mg tablet 1 mg PO DAILY 06/26/21 Unkno wn History ipratropium bromide 0.02 % 2 ml inhalation DAILY 06/26 Unknown History solution for inhalation rivaroxaban 20 mg tablet (Xarelto) 20 mg PO DAILY 02/08 Unknown History amitriptyline 25 mg tablet 25 mg PO QHS 11/17/24 Unkno wn History cholecalciferol (vitamin D3) 50 50 mcg PO DAILY Unknown History mcg (2,000 unit) capsule furosemide 20 mg tablet 20 mg PO DAILY 11/17/24 Unkn own History Allergy/AdvReac Type Severity Reaction Status Date / Time No Known Allergies Allergy Verified 11/17/24 12:43 Surgical History History of partial hysterectomy History of bladder suspension procedure History of appendectomy History of cholecystectomy H/O hernia repair Social History household members: none Smoking Status: Former smoker substance use type: does not use EXAM Physical Exam Const Vital Signs: 11/17/24 12:42 11/17/24 12:42 11/17/24 12:51 Temperature 98.3 F Temperature Source Oral Pulse Rate 76 66 Respiratory Rate 13 9 L Blood Pressure 88/62 L 83/61 L Blood Pressure Mean 70 68 Pulse Ox 83 79 94 Oxygen Delivery Method Room Air Nasal Cannula Nasal Cannula Oxygen Flow Rate (L/min) 2 4 11/17/24 14:29 11/17/24 15:00 11/17/24 15:06 Temperature 98.6 F Temperature Source Oral Pulse Rate 56 L 63 61 Respiratory Rate 8 L 17 16 Blood Pressure 77/42 L 86/60 L 86/60 L Blood Pressure Mean 53 68 68 Pulse Ox 95 97 Oxygen Delivery Method Nasal Cannula Oxygen Flow Rate (L/min) 2 3 11/17/24 15:17 11/17/24 15:43 11/17/24 15:57 Temperature Temperature Source Pulse Rate 59 L 78 63 Respiratory Rate 17 16 11 L Blood Pressure 86/60 L 93/38 L 109/58 L Blood Pressure Mean 68 56 75 Pulse Ox 95 93 95 Oxygen Delivery Method Nasal Cannula Nasal Cannula Oxygen Flow Rate (L/min) 3 2 3 11/17/24 16:36 11/17/24 16:38 Temperature 98.8 F 98.8 F Temperature Source Oral Pulse Rate 69 63 Respiratory Rate 17 10 L Blood Pressure 88/69 L 88/69 L Blood Pressure Mean 75 75 Pulse Ox 93 95 Oxygen Delivery Method Nasal Cannula Oxygen Flow Rate (L/min) [facility] MDM MDM Narrative Medical decision making narrative: HISTORY OF PRESENT ILLNESS: Chief complaint: Right hip pain 84-year-old female presents with right hip pain. She notes to have difficulty ambulating and so she has not been eating and drinking well as result. She denies chest pain or shortness of breath. Denies abdominal pain. No severe ripping or tearing pain. No vomiting. No diarrhea. No recent cough. REVIEW OF SYSTEMS: Pertinent positives: right hip pain Pertinent negatives: Shortness of breath, chest pain, vomiting PHYSICAL EXAM: Nursing triage notes reviewed, Vital signs reviewed Constitutional: please see mdm HENT: MMM Eyes: Pupils equal round and reactive to light, Extraocular muscles intact Neck: No stridor, no JVD, full neck ROM Lungs: Clear to auscultation, No wheezing or rales. No increased work of breathing, no conversational dyspnea, no accessory muscle use, no nasal flaring. No respiratory distress noted Heart: Regular rate and rhythm, No murmurs, No rubs and No gallops, 2+ distal pulses (radial, femoral, posterior tibial) in all extremities Abdomen: Soft, there is no tenderness, rigidity, rebound or guarding, no obviousperitoneal signs, no palpable pulsatile abdominal masses, no auscultated abdominal bruit : No CVAT Extremities: No edema, TTP over right hip, limited range of motion secondary to pain, intact quadriceps tendon complex, right leg appears slightly longer than left although patient complains mostly of right hip pain. No obvious deformity noted. No bruising or signs of trauma noted. Neuro: No new focal neurological deficits, cranial nerves II through XII intact,5/5 strength in all present extremities. Intact sensation to light touch in all present extremities, 2+ reflexes bilateral patella tendons. Back: No midline step-offs deformities to the lumbar spine. Skin: No rash or lesions noted, no sacral decubitus ulcers MEDICAL DECISION MAKING: Chief Complaint: please see HPI External records reviewed: Reviewed medications Factors affecting care: GERD, COPD (on 2 L as needed at home) Social determinants of health: Elderly History obtained from others: EMS Consults: Social work, internal medicine MDM Narrative: Patient was initially hypotensive, hypoxic with severe right hip pain. Exam within alert frail-appearing elderly female with severe right hip pain. Heart and lungs were clear abdomen was soft and nontender. She has symmetric pulses in all 4 extremities. She had sensation intact in all 4 extremities. No lateralizing neurologic deficits. I considered the following differential diagnosis: Dehydration, rhabdomyolysis, PE, ACS, arrhythmia, anemia, electrolyte disturbance, dehydration, CHF exacerbation IV O2 monitor placed. Patient was initially resuscitated 1 L normal saline I obtained a broad lab and imaging workup to further elucidate the etiology of the patient's complaints ALL IMAGES (IF OBTAINED) HAVE BEEN PERSONALLY REVIEWED AND INTERPRETED BY MYSELF. Chest x-ray was read reviewed person by myself showed evidence of multifocal pneumonia. Radiology reviewed my interpretation. EKG with rate controlled A-fib at 64 bpm, normal axis, QTc 458, no ischemic changes noted Initial troponin grossly elevated consistent with myocardial ischemia. I suspect this is a type II demand ischemia given hypoxia, hypotension and NAT BNP elevated consistent with increase ventricular stretch. Physical exam without signs of volume overload. Lungs without evidence of pulmonary edema. BMP without significant Risco normalities, there is elevation anion gap as well as severe NAT (I considered obtaining advanced imaging of the chest including CTA given hypotension and hypoxia to rule out PE but given severe renal dysfunction and signs of pneumonia I thought the CT scan with contrast wasnot prudent at this time) Initial lactate elevated consistent with endorgan hypoperfusion LFTs are also elevated consistent with endorgan hypoperfusion Urinalysis shows no evidence of urinary inflammation suggestive of UTI During the patient's ED course she received a 30 cc/kg bolus however her blood pressure not respond appropriately. Concern for septic shock given elevated white blood cell count hypoxia and signs of pneumonia on initial chest x-ray. Given patient did not respond to initial IV fluid bolus patient was started on peripheral Levophed. Preparations were made for central line. Please see belowprocedure note. Procedure: Central line placement. Indication: Venous Access Consent: verbal. Risks of bleeding, infection, and pneumothorax were explained. A time out was completed. Maximal sterile barrier technique was used including cap, gown, sterile gloves, large sheet, hand washing and chlorhexidine prep. Anesthesia: The area anesthetized with 1% lidocaine. Procedure: The right internal jugular vein was punctured with a 19 gauge finder needle, then a wire introducer was placed, a 7 [place] triple lumen catheter was placed using Seldinger technique. There were no complications. Blood return waslow pressure and non-pulsatile dark blood. Line secured in place with suture, and a sterile bio-occlusive dressing was applied. Patient tolerated procedure well. The procedure was performed by Reza Pedraza DO The patient and/or family, caregivers express understanding. The patient and/orfamily, caregivers agrees with the plan. Shared decision making: I will have a discussion with the patient and or visitors regarding risk/benefits of further testing or admission. They will be made aware of of the risk/benefits inherent in this decision they will be given the opportunity to voice understanding. Total critical care time today provided was at least 60 minutes. This excludes separately billable procedures. Critical care time (if documented) is secondary to the patient having high probability of clinically significant/life threatening deterioration in the patient's condition which required my urgent intervention. Impression: 1. Septic shock 2. Community-acquired pneumonia 3. Acute kidney injury 4. Elevated troponin 5. Leukocytosis Dispo: Admit to ICU This note was generated with uma information technology dictation software. It may contain incorrectwords, spelling, and punctuation that were not noted in review of the chart prior to signing. Lab Data Labs: Laboratory Results - last 24 hr 11/17/24 11/17/24 11/17/24 12:45 13:37 15:15 WBC 21.2 H RBC 5.44 H Hgb 17.7 H Hct 56.6 H MCV 104.0 H MCH 32.5 H MCHC 31.3 L RDW Std Deviation 53.3 H RDW Coeff of Mildred 13.7 Plt Count 272 MPV 11.0 Immature Gran % (Auto) 0.700 Neut % (Auto) 85.3 H Lymph % (Auto) 6.2 L [place] % (Auto) 7.5 Eos % (Auto) 0.0 Baso % (Auto) 0.3 Absolute Neuts (auto) 18.1 H Absolute Lymphs (auto) 1.32 Nucleated RBC % 0 Diff Path Review May foll Sodium 142 Potassium 5.1 Chloride 102 Carbon Dioxide 21.9 Anion Gap 18 H BUN 45 H Creatinine 2.45 H Estim Creat Clear Calc 15.17 L Est GFR (MDRD) Non-Af 19 L BUN/Creatinine Ratio 18.2 Glucose 160 H Lactic Acid 4.1 H* Calcium 9.6 Total Bilirubin 1.19 AST 474 H ALT 435 H Alkaline Phosphatase 168 H Troponin T High Sens 482 H* Troponin T Hi Sens 2 Hr 441 H* [place] [address] H Total Protein 7.3 Albumin 3.7 Globulin 3.6 Albumin/Globulin Ratio 1.0 Urine Color Yellow Urine Clarity Sl. Cloudy Urine pH 6.0 Ur Specific Bim 1.020 Urine Protein 30 H Urine Glucose (UA) Normal Urine Ketones 15 H Urine Occult Blood 10 H Urine Nitrite Negative Urine Bilirubin Negative Urine Urobilinogen 1 H Ur Leukocyte Esterase 25 H Urine RBC 0 SEEN Urine WBC 0-5 SEEN Ur Squamous Epith Cells 0-5 SEEN Urine Bacteria 0 SEEN Urine Mucus 0 SEEN Radiography Diagnostic Testing: Clinical Impression(s) from Imaging Studies Chest X-Ray 11/17/24 15:21 IMPRESSION: 1. Bilateral airspace opacities, compatible with pneumonitis/pneumonia. 2. Moderate cardiomegaly. 3. Slight increased size of a right midlung pulmonary nodule, previously characterized as a granuloma. Without access to patient chart, this diagnosis can not be confirmed. Correlation with patient's chart recommended and possible outpatient nonemergent CT chest could be obtained for further characterization if clinically indicated, not recently performed and/or inability to confirm benign pathology. Reading Location: [facility] Hip/Pelvis X-Ray 11/17/24 15:21 IMPRESSION: DEGENERATIVE OSTEOARTHROSIS. NO ACUTE FINDINGS. Reading Location: [facility] Discharge Plan Disposition Disposition: Acute Care Hospital [facility] Discharge Date/Time: 11/17/24 17:45 What to do if you have Problems For any increased pain, shortness of breath, bleeding, nausea or vomiting, chestpain, or any unexpected problems, contact your Primary Care Provider. Call [facility] ([phone]) or report to the closest Emergency Room. Call 911 if necessary. 11/17/241848 <Electronically signed by Reza Pedraza DO> Cosigner Signature (if applicable): CC: SILVIA GUTHRIE ~ Signed [facility] Work Phone: [phone]) 179-692003-30-2025 Consult note Author Maki Sher [facility] Note Date/Time November 17, 2024 6:3 3pm [facility] Medical Records Department [address] [place] [address] Pharmacokinetic/Renal -Consult 11/17/24 1818 MR#: [id number] Acct: [id number] Name: LESLI ROSALES Rep #:[id number] : 1940 84 From: Maki Sher PCP: SILVIA GUTHRIE Status:ADM IN Y Location: ICU ICU04-1 Consult Antibiotic Management Pharmacy has been consulted to manage selected antibiotic: Vancomycin Type of Intervention Type of Consult: New start Suspected Infection Suspected Infection: Sepsis and Pneumonia Labs Labs: Sodium 142 mmol/L (133-145) 11/17/24 12:45 Potassium 5.1 mmol/L (3.3-5.1) 11/17/24 12:45 Chloride 102 mmol/L (98-108) 11/17/24 12:45 Carbon Dioxide 21.9 mmol/L (21.0-32.0) 11/17/24 12:45 Anion Gap 18 (5-15) H 11/17/24 12:45 BUN 45 mg/dL (4-19) H 11/17/24 12:45 Creatinine 2.45 mg/dL (0.70-1.20) H 11/17/24 12:45 Est GFR (MDRD) Non-Af 19 (>60) L 11/17/24 12:45 BUN/Creatinine Ratio 18.2 RATIO (10-20) 11/17/24 12:45 Glucose 160 mg/dL (70-99) H 11/17/24 12:45 Microbiology Microbiology: Microbiology 11/17/24 13:20 Mucosa - Nose SARS-CoV-2, Influenza & RSV (PCR) - Final Pharmacy Plan for Drug Dosing Pharmacy Plan for Drug Dosing: NEW START IV VANCOMYCIN Consulting Physician: Conor Indication: pneumonia/sepsis Goal Trough: 15-20 mg/dL SrCr: 2.45 mg/dL CrCl: 15.1 mL/min Comments: loading dose of 1750mg given in ER 11/17 @ 1500 Vancomycin Dose: Will not schedule dosing at this time as patient's CrCl is 15 mL/min. Will order a random level in 2 days and re-evaluate if scheduled dosing can be started. Pending Level: 11/19/24 @ 0600 - random Pharmacy Service will continue to monitor and adjust dosing as required. 11/17/24 1820 <Electronically signed by Maki Sher> Date _ Maki Sher 11/17/24 1833 <Electronically signed by Elsy Perdomo MD> Cosigner Signature (if applicable): Date Elsy Perdomo MD CC: ~ Signed [facility] Work Phone: [phone]) 607-734603-30-2025 History and physical note Author Elsy Perdomo [facility] Note Date/Time November 17, 2024 5:0 4pm [facility] Medical Records Department [address] [place] [address] H&P Exam - Hospitalist 11/17/24 1640 MR#: [id number] Acct: [id number] Name: LESLI ROSALES Rep #:[id number] : 1940 84 From: Elsy Perdomo MD PCP: SILVIA GUTHRIE Status:ADM IN Location: ICU ICU04-1 HPI - General General Date of Admission: 11/17/24 Date of Service: 11/17/24 Chief Complaint: Poor PO, nausea HPI Narrative LESLI ROSALES, is a an 84-year-old female with history of A-fib, psoriatic arthritis, COPD who presented [facility] ED 11/17/2024 with righthip pain with some difficulty ambulating with poor p.o. intake. In the ED patient initially with blood pressure of 88/62 and pulse ox 83 percent on room air. Patient's BMP shows elevated creatinine of 2.45, suspect NAT given previous creatinines were in the 0.7 range though it has been several years since there have been any available in our system. Patient also has elevated AST and ALT of 474 and 435 respectively. Patient has BNP of nearly 22,000 and atroponin of 482. White blood cell count of 21.2 with a hemoglobin documented at17.7 and lactic acid of 4.1. Patient given IV fluids and broad-spectrum antibiotics for presumed sepsis and remained hypotensive so patient had right IJplaced and was started on norepinephrine. Broad cultures obtained. UA not consistent with UTI, chest x-ray did not demonstrate changes concerning for pneumonia however. Hospitalist contacted for admission for septic shock secondary to community-acquired pneumonia. Patient evaluated at bedside and reports that for the last couple of days she has felt poor in general and has not been eating or drinking, reports that today she became very nauseous and started having jerking movements and also had a lot of loose stool prompting herto come to the ED. When asking about her hip pain she reports that she helped get her up after he fell a couple months ago and hurt her back and hips,she went to the ED at that time at an outlying facility and was told she pulled her lower back muscles, since that time she has had low back pain and bilateral hip pain sometimes more on the right sometimes more on the left sometimes both and does not note that it is necessarily changed over the past couple days it isjust also bothersome to her. Denies any fevers at home, said she does get shortof breath but does not note necessarily any new episodes, does not note any significant coughing, no abdominal pain or changes in urination, does report large-volume loose stool earlier today which is abnormal for her, had not occurred prior. [facility] Medical History (Updated 11/17/24 @ 16:[address] Elsy Perdomo MD) A-fib COPD (chronic obstructive pulmonary disease) Psoriatic arthritis Shingles Home Medications ?Medication ?Instructions ?Recorded ?Last Taken ?Type atenolol 25 mg tablet 25 mg PO DAILY 06/26/21 Unkn own History famotidine 20 mg tablet 20 mg PO DAILY 06/26/21 Unkn own History folic acid 1 mg tablet 1 mg PO DAILY 06/26/21 Unkno wn History ipratropium bromide 0.02 % 2 ml inhalation DAILY 06/26 Unknown History solution for inhalation rivaroxaban 20 mg tablet (Xarelto) 20 mg PO DAILY 02/08 Unknown History amitriptyline 25 mg tablet 25 mg PO QHS 11/17/24 Unkno wn History cholecalciferol (vitamin D3) 50 50 mcg PO DAILY Unknown History mcg (2,000 unit) capsule furosemide 20 mg tablet 20 mg PO DAILY 11/17/24 Unkn own History Allergy/AdvReac Type Severity Reaction Status Date / Time No Known Allergies Allergy Verified 11/17/24 12:43 Surgical History H/O hernia repair History of appendectomy History of bladder suspension procedure History of cholecystectomy History of partial hysterectomy Social History household members: none Smoking Status: Former smoker substance use type: does not use ROS ROS Narrative General: Denies fever/chills HENT: Little bit of intermittent frontal headache, denies stuffy nose, denies sore throat EYES: Denies changes in vision Resp: Has some chronic shortness of breath, no specific cough Cardiac: Denies chest pain GI: Denies abdominal pain, had diarrhea today, additional endorses nausea earlier today, very poor p.o. intake for the past several days : Denies changes in urination Extremity: Denies swelling MSK: Feels little bit weak all over and has chronic hip pain Neuro: Denies any numbness/tingling Heme: Denies any bleeding or bruising Skin: Denies rashes Psychiatric: No complaints voiced Vital Signs Vital Signs Vital Signs: 11/17/24 12:42 11/17/24 12:42 11/17/24 12:51 Temperature 98.3 F Temperature Source Oral Pulse Rate 76 66 Respiratory Rate 13 9 L Blood Pressure 88/62 L 83/61 L Blood Pressure Mean 70 68 Pulse Ox 83 79 94 Oxygen Delivery Method Room Air Nasal Cannula Nasal Cannula Oxygen Flow Rate (L/min) 2 4 11/17/24 14:29 11/17/24 15:00 11/17/24 15:06 Temperature 98.6 F Temperature Source Oral Pulse Rate 56 L 63 61 Respiratory Rate 8 L 17 16 Blood Pressure 77/42 L 86/60 L 86/60 L Blood Pressure Mean 53 68 68 Pulse Ox 95 97 Oxygen Delivery Method Nasal Cannula Oxygen Flow Rate (L/min) 2 3 11/17/24 15:17 11/17/24 15:43 11/17/24 15:57 Temperature Temperature Source Pulse Rate 59 L 78 63 Respiratory Rate 17 16 11 L Blood Pressure 86/60 L 93/38 L 109/58 L Blood Pressure Mean 68 56 75 Pulse Ox 95 93 95 Oxygen Delivery Method Nasal Cannula Nasal Cannula Oxygen Flow Rate (L/min) 3 2 3 11/17/24 16:36 11/17/24 16:38 Temperature 98.8 F 98.8 F Temperature Source Oral Pulse Rate 69 63 Respiratory Rate 17 10 L Blood Pressure 88/69 L 88/69 L Blood Pressure Mean 75 75 Pulse Ox 93 95 Oxygen Delivery Method Nasal Cannula Oxygen Flow Rate (L/min) Weight Weight: 69.8 kg Body Mass Index (BMI) 30.0 Physical Exam Narrative General: Alert, oriented, no apparent distress HEENT: Atraumatic, normocephalic Eyes: Anicteric, normal conjunctiva, extraocular movements grossly intact Neck: Supple Respiratory: Coarse bilaterally, normal respiratory effort Cardiovascular: Regular rate and rhythm GI: Soft, has a little bit of tenderness in random spots on abdomen without necessarily being able to really create this or reproduce this, no rebound, guarding, rigidity Extremities: No edema Musculoskeletal: Moving all extremities Neuro: No overt focal neurological deficits Skin: No rashes appreciated Psych: Cooperative Results Lab / Micro Data 11/17/24 12:45 11/17/24 12:45 Labs: Laboratory Results - last 24 hr 11/17/24 12:45: WBC 21.2 H, RBC 5.44 H, Hgb 17.7 H, Hct 56.6 H, MCV 104.0 H, MCH32.5 H, MCHC 31.3 L, RDW Std Deviation 53.3 H, RDW Coeff of Mildred 13.7, Plt Count 272, MPV 11.0, Immature Gran % (Auto) 0.700, Neut % (Auto) 85.3 H, Lymph % (Auto) 6.2 L, [place] % (Auto) 7.5, Eos % (Auto) 0.0, Baso % (Auto) 0.3, Absolute Neuts (auto) 18.1 H, Absolute Lymphs (auto) 1.32, Nucleated RBC % 0, Diff Path Review December, Sodium 142, Potassium 5.1, Chloride 102, Carbon Dioxide 21.9, Anion Gap 18 H, BUN 45 H, Creatinine 2.45 H, Estim Creat Clear Calc 15.17 L, Est GFR (MDRD) Non-Af 19 L, BUN/Creatinine Ratio 18.2, Glucose 160 H, Lactic Acid 4.1 H*, Calcium 9.6, Total Bilirubin 1.19, AST 474 H, ALT 435 H, Alkaline Phosphatase 168 H, Troponin T High Sens 482 H*, [place] [address] H, Total Protein 7.3, Albumin 3.7, Globulin 3.6, Albumin/Globulin Ratio 1.0 11/17/24 13:37: Urine Color Yellow, Urine Clarity Sl. Cloudy, Urine pH 6.0, Ur Specific Bim 1.020, Urine Protein 30 H, Urine Glucose (UA) Normal, Urine Ketones 15 H, Urine Occult Blood 10 H, Urine Nitrite Negative, Urine Bilirubin Negative, Urine Urobilinogen 1 H, Ur Leukocyte Esterase 25 H, Urine RBC 0 SEEN, Urine WBC 0-5 SEEN, Ur Squamous Epith Cells 0-5 SEEN, Urine Bacteria 0 SEEN, Urine Mucus 0 SEEN 11/17/24 15:15: Troponin T Hi Sens 2 Hr 441 H* Micro: Microbiology 11/17/24 13:20 Mucosa - Nose SARS-CoV-2, Influenza & RSV (PCR) - Final Imaging Radiology Impression Chest X-Ray 11/17/24 15:21 IMPRESSION: 1. Bilateral airspace opacities, compatible with pneumonitis/pneumonia. 2. Moderate cardiomegaly. 3. Slight increased size of a right midlung pulmonary nodule, previously characterized as a granuloma. Without access to patient chart, this diagnosis can not be confirmed. Correlation with patient's chart recommended and possible outpatient nonemergent CT chest could be obtained for further characterization if clinically indicated, not recently performed and/or inability to confirm benign pathology. Reading Location: [facility] Hip/Pelvis X-Ray 11/17/24 15:21 IMPRESSION: DEGENERATIVE OSTEOARTHROSIS. NO ACUTE FINDINGS. Reading Location: [facility] Assessment & Plan Assessment/Plan (1) Septic shock: PLAN: Plan # Septic shock suspect secondary to pneumonia -Patient hypotensive with blood pressure of 88/62 ultimately not responsive to IV fluids requiring pressor support -Additionally patient hypoxic at 83% on room air and has creatinine which is suspected to be elevated from baseline at 2.45 with previous values around 0.7 -White blood cell count noted to be 21.2 with a lactic acid of 14.1 -BNP nearly 22,000, troponin 482 and patient with elevated liver function tests as well, suspect this is secondary to her hypotension and hypoxia -Patient fluid resuscitated but requiring Levophed -Pancultures -UA not suggestive of UTI -Chest x-ray suggestive of pneumonia -DuoNebs and as needed albuterol -Sputum culture, COVID ordered, respiratory panel ordered -Urine antigens -Mucinex, I/S -Will also check stool studies given patient's nausea and diarrhea, denies any significant abdominal pain -Patient's imaging concerning for pneumonia but patient denies any significant changes in respiratory status or cough and given significance of patient's illness we will start broad-spectrum antibiotics and narrow as able as further results available and workup underway # Hypoxia with new O2 requirement suspect secondary to pneumonia -X-ray compatible with pneumonia -Management as above -Patient does not appear to be clinically overloaded even with elevated BNP patient denies any swelling or other concerns but does appear she is on home Lasix -Given her dry mucous membranes and significant volume depletion given very poorp.o. intake and suspected kidney failure will hold this for now but carefully monitor daily weights and I's and O's with low threshold to resume once patient stable -Continuing IV fluids however will run maintenance for 1 more liter, and this can be reevaluated if patient needs further fluids # Nausea and episode of diarrhea -Unclear if this is due to patient's dehydration and uremia or if there could beother etiology -Supportive care -IV fluids -Will check stool studies -Patient without impressive abdominal exam so this was not scanned, pending further workup and clinical course could consider scanning the abdomen however given lack of significant exam findings we will hold off acutely # Bilateral hip pain -Patient reports hip pain for months after trying to pick her up off theground with help -Sometimes will have pain more on the right, sometimes more on the left and sometimes both sides, does not note anything specific necessarily occurred todayor that this is changed over the past couple of days it is just an additional problem -Pain control as blood pressure allows -Hip/pelvis x-ray with degenerative osteoarthrosis -Given patient's report of also lower back pain and that this all occurred aftertrying to lift her up could consider further imaging with CT or MRI of lumbar spine and hips pending clinical progress, patient is stable could always consider this on an outpatient basis -PT/OT # Elevated troponin -Patient with elevated troponin of 482 and proBNP of nearly 22,000, suspect thatthis is part of the endorgan damage from her septic shock. -Treat underlying etiology -Repeat troponin did downtrend # Suspected NAT -Creatinine 2.45 with baseline seemingly around 0.7 -Suspect this is due to patient's septic shock/systemic illness -IV fluids, monitor I's and O's -Avoid nephrotoxic agents # Elevated liver function tests -Suspect shock liver given patient's hypotension and approximately -Fluid resuscitation -Will trend -Avoid hepatotoxic agents #Hx pafib -On xeralto and atenolol at home -Holding atenolol given hypotension #Hypertension -Holding home antihypertensives # Patient with history of psoriatic arthritis -On Skyrizi every 3 month self injection #GERD -Continue home famotidine #DVT ppx: Patient fully anticoagulated Elsy Perdomo MD Time spent in the patient's overall evaluation,decision-making process, review of diagnostic data, adjustment of management, discussion with other providers, nursing nursing and ancillary staff involved in patient's care documentation, 78Minutes Charges/Coding Visit Charges Inpatient E&M: 52593 Init Hosp L3 11/17/24 1704 <Electronically signed by Elsy Perdomo MD> Cosigner Signature (if applicable): CC: Dr. Elsy Perdomo MD; SILVIA GUTHRIE~ Signed [facility] Work Phone: 1(650) 428-587403-30-2025 Discharge summary [facility] Medical Records Department [address] [place] [id number] Emergency Department Summary 11/17/24 MR#: [id number] Acct: [id number] Name: LESLI ROSALES Rep #:[id number] : 1940 84 From: Reza Ballard PCP: SILVIA GUTHRIE Status:ADM IN Location: ICU ICU04-1 HPI History of Present Illness Chief Complaint: Lower Extremity Injury [facility] Medical History (Updated 11/17/24 @ 18:37 by Mindy Tierney) Anxiety Depression Chronic pain GERD (gastroesophageal reflux disease) On home oxygen therapy Atrial fibrillation Congestive heart failure (CHF) Hypertension Shingles Psoriatic arthritis COPD (chronic obstructive pulmonary disease) A-fib Home Medications ?Medication ?Instructions ?Recorded ?Last Taken ?Type atenolol 25 mg tablet 25 mg PO DAILY 06/26/21 Unkn own History famotidine 20 mg tablet 20 mg PO DAILY 06/26/21 Unkn own History folic acid 1 mg tablet 1 mg PO DAILY 06/26/21 Unkno wn History ipratropium bromide 0.02 % 2 ml inhalation DAILY 06/26 Unknown History solution for inhalation rivaroxaban 20 mg tablet (Xarelto) 20 mg PO DAILY 02/08 Unknown History amitriptyline 25 mg tablet 25 mg PO QHS 11/17/24 Unkno wn History cholecalciferol (vitamin D3) 50 50 mcg PO DAILY Unknown History mcg (2,000 unit) capsule furosemide 20 mg tablet 20 mg PO DAILY 11/17/24 Unkn own History Allergy/AdvReac Type Severity Reaction Status Date / Time No Known Allergies Allergy Verified 11/17/24 12:43 Surgical History History of partial hysterectomy History of bladder suspension procedure History of appendectomy History of cholecystectomy H/O hernia repair Social History household members: none Smoking Status: Former smoker substance use type: does not use EXAM Physical Exam Const Vital Signs: 11/17/24 12:42 11/17/24 12:42 11/17/24 12:51 Temperature 98.3 F Temperature Source Oral Pulse Rate 76 66 Respiratory Rate 13 9 L Blood Pressure 88/62 L 83/61 L Blood Pressure Mean 70 68 Pulse Ox 83 79 94 Oxygen Delivery Method Room Air Nasal Cannula Nasal Cannula Oxygen Flow Rate (L/min) 2 4 11/17/24 14:29 11/17/24 15:00 11/17/24 15:06 Temperature 98.6 F Temperature Source Oral Pulse Rate 56 L 63 61 Respiratory Rate 8 L 17 16 Blood Pressure 77/42 L 86/60 L 86/60 L Blood Pressure Mean 53 68 68 Pulse Ox 95 97 Oxygen Delivery Method Nasal Cannula Oxygen Flow Rate (L/min) 2 3 11/17/24 15:17 11/17/24 15:43 11/17/24 15:57 Temperature Temperature Source Pulse Rate 59 L 78 63 Respiratory Rate 17 16 11 L Blood Pressure 86/60 L 93/38 L 109/58 L Blood Pressure Mean 68 56 75 Pulse Ox 95 93 95 Oxygen Delivery Method Nasal Cannula Nasal Cannula Oxygen Flow Rate (L/min) 3 2 3 11/17/24 16:36 11/17/24 16:38 Temperature 98.8 F 98.8 F Temperature Source Oral Pulse Rate 69 63 Respiratory Rate 17 10 L Blood Pressure 88/69 L 88/69 L Blood Pressure Mean 75 75 Pulse Ox 93 95 Oxygen Delivery Method Nasal Cannula Oxygen Flow Rate (L/min) [facility] Narrative Medical decision making narrative: HISTORY OF PRESENT ILLNESS: Chief complaint: Right hip pain 84-year-old female presents with right hip pain. She notes to have difficulty ambulating and so shehas not been eating and drinking well as result. She denies chest pain or shortness of breath. Denies abdominal pain. No severe ripping or tearing pain. No vomiting. No diarrhea. No recent cough. REVIEW OF SYSTEMS: Pertinent positives: right hip pain Pertinent negatives: Shortness of breath, chest pain, vomiting PHYSICAL EXAM: Nursing triage notes reviewed, Vital signs reviewed Constitutional: please see [facility] HENT: MMM Eyes: Pupils equal round and reactive to light, Extraocular muscles intact Neck: No stridor, no JVD, full neck ROM Lungs: Clear to auscultation, No wheezing or rales. No increased work of breathing, no conversational dyspnea, no accessory muscle use, no nasal flaring. No respiratory distress noted Heart: Regular rate and rhythm, No murmurs, No rubs and No gallops, 2+ distal pulses (radial, femoral, posterior tibial) in all extremities Abdomen: Soft, there is no tenderness, rigidity, rebound or guarding, no obviousperitoneal signs, no palpable pulsatile abdominal masses, no auscultated abdominal bruit : No CVAT Extremities: No edema, TTP over right hip, limited range of motion secondary to pain, intact quadriceps tendon complex, right leg appears slightly longer than left although patient complains mostly of right hip pain. No obvious deformity noted. No bruising or signs of trauma noted. Neuro: No new focal neurological deficits, cranial nerves II through XII intact,5/5 strength in allpresent extremities. Intact sensation to light touch in all present extremities, 2+ reflexes bilateral patella tendons. Back: No midline step-offs deformities to the lumbar spine. Skin: No rash or lesions noted, no sacral decubitus ulcers MEDICAL DECISION MAKING: Chief Complaint: please see HPI External records reviewed: Reviewed medications Factors affecting care: GERD, COPD (on 2 L as needed at home) Social determinants of health: Elderly History obtained from others: EMS Consults: Social work, internal medicine MDM Narrative: Patient was initially hypotensive, hypoxic with severe right hip pain. Exam within alert frail-appearing elderly female with severe right hip pain. Heart and lungs were clear abdomen was soft and nontender. She has symmetric pulses in all 4 extremities. She had sensation intact in all 4 extremities. No lateralizing neurologic deficits. I considered the following differential diagnosis: Dehydration, rhabdomyolysis, PE, ACS, arrhythmia, anemia, electrolyte disturbance, dehydration, CHF exacerbation IV O2 monitor placed. Patient was initially resuscitated 1 L normal saline I obtained a broad lab and imaging workup to further elucidate the etiology of the patient's complaints ALL IMAGES (IF OBTAINED) HAVE BEEN PERSONALLY REVIEWED AND INTERPRETED BY MYSELF. Chest x-ray was read reviewed person by myself showed evidence of multifocal pneumonia. Radiology reviewed my interpretation. EKG with rate controlled A-fib at 64 bpm, normal axis, QTc 458, no ischemic changes noted Initial troponin grossly elevated consistent with myocardial ischemia. I suspect this is a type II demand ischemia given hypoxia, hypotension and NAT BNP elevated consistent with increase ventricular stretch. Physical exam without signs of volume overload. Lungs without evidence of pulmonary edema. BMP without significant Karina normalities, there is elevation anion gap as well as severe NAT (I considered obtaining advanced imaging of the chest including CTA given hypotension and hypoxia to rule out PE but given severe renal dysfunction and signs of pneumonia I thought the CT scan with contrast wasnot prudent at this time) Initial lactate elevated consistent with endorgan hypoperfusion LFTs are also elevated consistent with endorgan hypoperfusion Urinalysis shows no evidence of urinary inflammation suggestive of UTI During the patient's ED course she received a 30 cc/kg bolus however her blood pressure not respondappropriately. Concern for septic shock given elevated white blood cell count hypoxia and signs of pneumonia on initial chest x-ray. Given patient did not respond to initial IV fluid bolus patient was started on peripheral Levophed. Preparations were made for central line. Please see belowprocedurenote. Procedure: Central line placement. Indication: Venous Access Consent: verbal. Risks of bleeding, infection, and pneumothorax were explained. A time out was completed. Maximal sterile barrier technique was used including cap, gown, sterile gloves, large sheet, hand washing and chlorhexidine prep. Anesthesia: The area anesthetized with 1% lidocaine. Procedure: The right internal jugular vein was punctured with a 19 gauge finder needle, then a wireintroducer was placed, a 7 [place] triple lumen catheter was placed using Seldinger technique. Therewere no complications. Blood return waslow pressure and non-pulsatile dark blood. Line secured in place with suture, and a sterile bio-occlusive dressing was applied. Patient tolerated procedure well. The procedure was performed by Reza Pedraza DO The patient and/or family, caregivers express understanding. The patient and/orfamily, caregivers agrees with the plan. Shared decision making: I will have a discussion with the patient and or visitors regarding risk/benefits of further testing or admission. They will be made aware of of the risk/benefits inherent in this decision they will be given the opportunity to voice understanding. Total critical care time today provided was at least 60 minutes. This excludes separately billable procedures. Critical care time (if documented) is secondary to the patient having high probability of clinically significant/life threatening deterioration in the patient's condition which required myurgent intervention. Impression: 1. Septic shock 2. Community-acquired pneumonia 3. Acute kidney injury 4. Elevated troponin 5. Leukocytosis Dispo: Admit to ICU This note was generated with uma information technology dictation software. It may contain incorrectwords, spelling, and punctuation that were not noted in review of the chart prior to signing. Lab Data Labs: Laboratory Results - last 24 hr 11/17/24 11/17/24 11/17/24 12:45 13:37 15:15 WBC 21.2 H RBC 5.44 H Hgb 17.7 H Hct 56.6 H MCV 104.0 H MCH 32.5 H MCHC 31.3 L RDW Std Deviation 53.3 H RDW Coeff of Mildred 13.7 Plt Count 272 MPV 11.0 Immature Gran % (Auto) 0.700 Neut % (Auto) 85.3 H Lymph % (Auto) 6.2 L [place] % (Auto) 7.5 Eos % (Auto) 0.0 Baso % (Auto) 0.3 Absolute Neuts (auto) 18.1 H Absolute Lymphs (auto) 1.32 Nucleated RBC % 0 Diff Path Review May foll Sodium 142 Potassium 5.1 Chloride 102 Carbon Dioxide 21.9 Anion Gap 18 H BUN 45 H Creatinine 2.45 H Estim Creat Clear Calc 15.17 L Est GFR (MDRD) Non-Af 19 L BUN/Creatinine Ratio 18.2 Glucose 160 H Lactic Acid 4.1 H* Calcium 9.6 Total Bilirubin 1.19 AST 474 H ALT 435 H Alkaline Phosphatase 168 H Troponin T High Sens 482 H* Troponin T Hi Sens 2 Hr 441 H* [place] [address] H Total Protein 7.3 Albumin 3.7 Globulin 3.6 Albumin/Globulin Ratio 1.0 Urine Color Yellow Urine Clarity Sl. Cloudy Urine pH 6.0 Ur Specific Bim 1.020 Urine Protein 30 H Urine Glucose (UA) Normal Urine Ketones 15 H Urine Occult Blood 10 H Urine Nitrite Negative Urine Bilirubin Negative Urine Urobilinogen 1 H Ur Leukocyte Esterase 25 H Urine RBC 0 SEEN Urine WBC 0-5 SEEN Ur Squamous Epith Cells 0-5 SEEN Urine Bacteria 0 SEEN Urine Mucus 0 SEEN Radiography Diagnostic Testing: Clinical Impression(s) from Imaging Studies Chest X-Ray 11/17/24 15:21 IMPRESSION: 1. Bilateral airspace opacities, compatible with pneumonitis/pneumonia. 2. Moderate cardiomegaly. 3. Slight increased size of a right midlung pulmonary nodule, previously characterized as a granuloma. Without access to patient chart, this diagnosis can not be confirmed. Correlation with patient's chart recommended and possible outpatient nonemergent CT chest could be obtained for further characterization if clinically indicated, not recently performed and/or inability to confirm benign pathology. Reading Location: [facility] Hip/Pelvis X-Ray 11/17/24 15:21 IMPRESSION: DEGENERATIVE OSTEOARTHROSIS. NO ACUTE FINDINGS. Reading Location: [facility] Discharge Plan Disposition Disposition: Acute Care Hospital [facility] Discharge Date/Time: 11/17/24 17:45 What to do if you have Problems For any increased pain, shortness of breath, bleeding, nausea or vomiting, chestpain, or any unexpected problems, contact your Primary Care Provider. Call [facility] ([phone]) or report tothe closest Emergency Room. Call 911 if necessary. 11/17/24 184 Cosigner Signature (if applicable): CC: SILVIA GUTHRIE ~ Signed [facility]03-30-2025 Evaluation note* Diagnosis Onset Date Resolution Status Admit Date NAT (acute kidney injury) acute November 17, 2024 4:40pm Septic shock acute November 17, 2024 4:40pm Shock acute November 17 4:40pm [facility] Work Phone: 1(352) 670-424303-30-2025 Evaluation note* Diagnosis Onset Date Resolution Status Admit Date NAT (acute kidney injury) resolved November 17, 2024 4:40pm Septic shock resolved November 17, 2024 4:40pm Shock resolved November 17 4:40pm Ambulatory dysfunction acute Ma y 2024 7:55pm Back pain acute December 24, 2024 7:55pm Chronic anticoagulation acute M ay 2024 7:55pm Closed compression fracture of lumbosacral spine acute December 24, 2024 7:55pm Generalized weakness acute December 24, 2024 7:55pm Inability to perform activit ies of daily living acute December 24, 2024 7: 55pm Overweight (BMI 25.0-29.9) acute December 24, 2024 7:55pm Paroxysmal atrial fibrillation acute December 24, 2024 7:55pm Unable to care for self acute [facility] 2024 7:55pm [facility] Work Phone: 1(106) 349-898803-30-2025 Evaluation note* Diagnosis Onset Date Resolution Status Admit Date NAT (acute kidney injury) resolved November 17, 2024 4:40pm Septic shock resolved November 17, 2024 4:40pm Shock resolved November 17 4:40pm Abnormal finding on urinalysis acute December 24, 2024 7:55pm Acute cystitis with hematuria acute December 24, 2024 7:55pm Ambulatory dysfunction acute Ma y 2024 7:55pm Back pain acute December 24, 2024 7:55pm Burst fracture of lumbar vertebra acute December 24, 2024 7: 55pm Chronic anticoagulation acute M ay 2024 7:55pm Closed compression fracture of lumbosacral spine acute December 24, 2024 7:55pm Compression fracture of L2 acute December 24, 2024 7:55pm Compression fracture of L3 vertebra acute December 24, 2024 7: 55pm Generalized weakness acute December 24, 2024 7:55pm Inability to perform activit ies of daily living acute December 24, 2024 7: 55pm Intractable back pain acute December 24, 2024 7:55pm Leukocytosis acute December 24 7:55pm Osteopenia determined by x-ray acute December 24, 2024 7:55pm Overweight (BMI 25.0-29.9) acute December 24, 2024 7:55pm Paroxysmal atrial fibrillation acute December 24, 2024 7:55pm Status post kyphoplasty acute M 2024 7:55pm Unable to care for self acute M 2024 7:55pm [facility] Work Phone: 1(921) 264-876003-30-2025 Evaluation note* Diagnosis Onset Date Resolution Status Admit Date NAT (acute kidney injury) resolved November 17, 2024 4:40pm Septic shock resolved November 17, 2024 4:40pm Shock resolved November 17 4:40pm Status post kyphoplasty acute M 2024 7:55pm Abnormal finding on urinalysis inact petr December 24, 2024 7:55pm Acute cystitis with hematuria inacti ve December 24, 2024 7:55pm Ambulatory dysfunction inactive Ma y 2024 7:55pm Back pain inactive December 24, 2024 7:55pm Burst fracture of lumbar vertebra inactive December 24, 2024 7: 55pm Chronic anticoagulation inactive [facility] 2024 7:55pm Closed compression fracture of lumbosacral spine inactive December 24, 2024 7:55pm Compression fracture of L2 inactive December 24, 2024 7:55pm Compression fracture of L3 vertebra inactive December 24, 2024 7: 55pm Generalized weakness inactive December 24, 2024 7:55pm Inability to perform activit ies of daily living inactive December 24, 2024 7: 55pm Intractable back pain inactive December 24, 2024 7:55pm Leukocytosis inactive December 24 7:55pm Osteopenia determined by x-ray inact petr December 24, 2024 7:55pm Overweight (BMI 25.0-29.9) inactive December 24, 2024 7:55pm Paroxysmal atrial fibrillation inact petr December 24, 2024 7:55pm Unable to care for self inactive M 2024 7:55pm [facility] Work Phone: 1(311) 493-909503-30-2025 Consult note [facility] Medical Records Department [address] [place] [address] Pharmacokinetic/Renal -Consult 11/17/241817 MR#: [id number] Acct: [id number] Name: LESLI ROSALES Rep #:[id number] : 1940 84 From: Maki Sher PCP: SILVIA GUTHRIE Status:ADM IN Y Location: ICU ICU-1 Consult Antibiotic Management Pharmacy has been consulted to manage selected antibiotic: Vancomycin Type of Intervention Type of Consult: New start Suspected Infection Suspected Infection: Sepsis and Pneumonia Labs Labs: Sodium 142 mmol/L (133-145) 11/17/24 12:45 Potassium 5.1 mmol/L (3.3-5.1) 11/17/24 12:45 Chloride 102 mmol/L (98-108) 11/17/24 12:45 Carbon Dioxide 21.9 mmol/L (21.0-32.0) 11/17/24 12:45 Anion Gap 18 (5-15) H 11/17/24 12:45 BUN 45 mg/dL (4-19) H 11/17/24 12:45 Creatinine 2.45 mg/dL (0.70-1.20) H 11/17/24 12:45 Est GFR (MDRD) Non-Af 19 (>60) L 11/17/24 12:45 BUN/Creatinine Ratio 18.2 RATIO (10-20) 11/17/24 12:45 Glucose 160 mg/dL (70-99) H 11/17/24 12:45 Microbiology Microbiology: Microbiology 11/17/24 13:20 Mucosa - Nose SARS-CoV-2, Influenza & RSV (PCR) - Final Pharmacy Plan for Drug Dosing Pharmacy Plan for Drug Dosing: NEW START IV VANCOMYCIN Consulting Physician: Conor Indication: pneumonia/sepsis Goal Trough: 15-20 mg/dL SrCr: 2.45 mg/dL CrCl: 15.1 mL/min Comments: loading dose of 1750mg given in ER 11/17 @ 1500 Vancomycin Dose: Will not schedule dosing at this time as patient's CrCl is 15 mL/min. Will order arandom level in 2 days and re-evaluate if scheduled dosing can be started. Pending Level: 11/19/24 @ 0600 - random Pharmacy Service will continue to monitor and adjust dosing as required. 11/17/24 1820 Date _ Maki Sher 11/17/24 1833 MD> Cosigner Signature (if applicable): Date Elsy Perdomo MD CC: ~ Signed [facility]03-30-2025 History and physical note [facility] Medical Records Department [address] [place] [address] H&P Exam - Hospitalist 11/17/24 1640 MR#: [id number] Acct: [id number] Name: LESLI ROSALES Rep #:[id number] : 1940 84 From: Elsy Perdomo MD PCP: SILVIA GUTHRIE Status:ADM IN Location: ICU ICU04-1 HPI - General General Date of Admission: 11/17/24 Date of Service: 11/17/24 Chief Complaint: Poor PO, nausea HPI Narrative LESLI ROSALES, is a an 84-year-old female with history of A-fib, psoriatic arthritis, COPD who presented [facility] ED 11/17/2024 with righthip pain with some difficulty ambulatingwith poor p.o. intake. In the ED patient initially with blood pressure of 88/62 and pulse ox 83 percent on room air. Patient's BMP shows elevated creatinine of 2.45, suspect NAT given previous creatinines were in the 0.7 range though it has been several years since there have been any available in our system. Patient also has elevated AST and ALT of 474 and 435 respectively. Patient has BNP of nearly 22,000 and atroponin of 482. White blood cell count of 21.2 with a hemoglobin documented at17.7and lactic acid of 4.1. Patient given IV fluids and broad-spectrum antibiotics for presumed sepsis and remained hypotensive so patient had right IJplaced and was started on norepinephrine. Broad cultures obtained. UA not consistent with UTI, chest x- ray did not demonstrate changes concerning for pneumonia however. Hospitalist contacted for admission for septic shock secondary to community-acquired pneumonia. Patient evaluated at bedside and reports that for the last couple of days she has felt poor in general and has not been eating or drinking, reports that today she became very nauseous andstarted having jerking movements and also had a lot of loose stool prompting herto come to the ED. When asking about her hip pain she reports that she helped get her up after he fell a couple months ago and hurt her back and hips,she went to the ED at that time at an outlying facility and was told she pulled her lower back muscles, since that time she has had low back pain and bilateral hip pain sometimes more on the right sometimes more on the left sometimes both and does not note thatit is necessarily changed over the past couple days it isjust also bothersome to her. Denies any fevers at home, said she does get shortof breath but does not note necessarily any new episodes, does not note any significant coughing, no abdominal pain or changes in urination, does report large-volume loose stool earlier today which is abnormal for her, had not occurred prior. [facility] Medical History (Updated 11/17/24 @ 16:[address] Elsy Perdomo MD) A-fib COPD (chronic obstructive pulmonary disease) Psoriatic arthritis Shingles Home Medications ?Medication ?Instructions ?Recorded ?Last Taken ?Type atenolol 25 mg tablet 25 mg PO DAILY 06/26/21 Unkn own History famotidine 20 mg tablet 20 mg PO DAILY 06/26/21 Unkn own History folic acid 1 mg tablet 1 mg PO DAILY 06/26/21 Unkno wn History ipratropium bromide 0.02 % 2 ml inhalation DAILY 06/26 Unknown History solution for inhalation rivaroxaban 20 mg tablet (Xarelto) 20 mg PO DAILY 02/08 Unknown History amitriptyline 25 mg tablet 25 mg PO QHS 11/17/24 Unkno wn History cholecalciferol (vitamin D3) 50 50 mcg PO DAILY Unknown History mcg (2,000 unit) capsule furosemide 20 mg tablet 20 mg PO DAILY 11/17/24 Unkn own History Allergy/AdvReac Type Severity Reaction Status Date / Time No Known Allergies Allergy Verified 11/17/24 12:43 Surgical History H/O hernia repair History of appendectomy History of bladder suspension procedure History of cholecystectomy History of partial hysterectomy Social History household members: none Smoking Status: Former smoker substance use type: does not use ROS ROS Narrative General: Denies fever/chills HENT: Little bit of intermittent frontal headache, denies stuffy nose, denies sore throat EYES: Denies changes in vision Resp: Has some chronic shortness of breath, no specific cough Cardiac: Denies chest pain GI: Denies abdominal pain, had diarrhea today, additional endorses nausea earlier today, very poor p.o. intake for the past several days : Denies changes in urination Extremity: Denies swelling MSK: Feels little bit weak all over and has chronic hip pain Neuro: Denies any numbness/tingling Heme: Denies any bleeding or bruising Skin: Denies rashes Psychiatric: No complaints voiced Vital Signs Vital Signs Vital Signs: 11/17/24 12:42 11/17/24 12:42 11/17/24 12:51 Temperature 98.3 F Temperature Source Oral Pulse Rate 76 66 Respiratory Rate 13 9 L Blood Pressure 88/62 L 83/61 L Blood Pressure Mean 70 68 Pulse Ox 83 79 94 Oxygen Delivery Method Room Air Nasal Cannula Nasal Cannula Oxygen Flow Rate (L/min) 2 4 11/17/24 14:29 11/17/24 15:00 11/17/24 15:06 Temperature 98.6 F Temperature Source Oral Pulse Rate 56 L 63 61 Respiratory Rate 8 L 17 16 Blood Pressure 77/42 L 86/60 L 86/60 L Blood Pressure Mean 53 68 68 Pulse Ox 95 97 Oxygen Delivery Method Nasal Cannula Oxygen Flow Rate (L/min) 2 3 11/17/24 15:17 11/17/24 15:43 11/17/24 15:57 Temperature Temperature Source Pulse Rate 59 L 78 63 Respiratory Rate 17 16 11 L Blood Pressure 86/60 L 93/38 L 109/58 L Blood Pressure Mean 68 56 75 Pulse Ox 95 93 95 Oxygen Delivery Method Nasal Cannula Nasal Cannula Oxygen Flow Rate (L/min) 3 2 3 11/17/24 16:36 11/17/24 16:38 Temperature 98.8 F 98.8 F Temperature Source Oral Pulse Rate 69 63 Respiratory Rate 17 10 L Blood Pressure 88/69 L 88/69 L Blood Pressure Mean 75 75 Pulse Ox 93 95 Oxygen Delivery Method Nasal Cannula Oxygen Flow Rate (L/min) Weight Weight: 69.8 kg Body Mass Index (BMI) 30.0 Physical Exam Narrative General: Alert, oriented, no apparent distress HEENT: Atraumatic, normocephalic Eyes: Anicteric, normal conjunctiva, extraocular movements grossly intact Neck: Supple Respiratory: Coarse bilaterally, normal respiratory effort Cardiovascular: Regular rate and rhythm GI: Soft, has a little bit of tenderness in random spots on abdomen without necessarily being able to really create this or reproduce this, no rebound, guarding, rigidity Extremities: No edema Musculoskeletal: Moving all extremities Neuro: No overt focal neurological deficits Skin: No rashes appreciated Psych: Cooperative Results Lab / Micro Data 11/17/24 12:45 11/17/24 12:45 Labs: Laboratory Results - last 24 hr 11/17/24 12:45: WBC 21.2 H, RBC 5.44 H, Hgb 17.7 H, Hct 56.6 H, MCV 104.0 H, MCH32.5 H, MCHC 31.3 L, RDW Std Deviation 53.3 H, RDW Coeff of Mildred 13.7, Plt Count 272, MPV 11.0, Immature Gran % (Auto) 0.700, Neut % (Auto) 85.3 H, Lymph % (Auto) 6.2 L, [place] % (Auto) 7.5, Eos % (Auto) 0.0, Baso % (Auto)0.3, Absolute Neuts (auto) 18.1 H, Absolute Lymphs (auto) 1.32, Nucleated RBC % 0, Diff Path ReviewMay foll, Sodium 142, Potassium 5.1, Chloride 102, Carbon Dioxide 21.9, Anion Gap 18 H, BUN 45 H, Creatinine 2.45 H, Estim Creat Clear Calc 15.17 L, Est GFR (MDRD) Non-Af 19 L, BUN/Creatinine Ratio 18.2, Glucose 160 H, Lactic Acid 4.1 H*, Calcium 9.6, Total Bilirubin 1.19, AST 474 H, ALT 435 H, Alkaline Phosphatase 168 H, Troponin T High Sens 482 H*, [place] [address] H, Total Protein 7.3, Albumin 3.7, Globulin 3.6, Albumin/Globulin Ratio 1.0 11/17/24 13:37: Urine Color Yellow, Urine Clarity Sl. Cloudy, Urine pH 6.0, Ur Specific Bim 1.020, Urine Protein 30 H, Urine Glucose (UA) Normal, Urine Ketones 15 H, Urine Occult Blood 10 H, Urine Nitrite Negative, Urine Bilirubin Negative, Urine Urobilinogen 1 H, Ur Leukocyte Esterase 25 H, Urine RBC 0 SEEN, Urine WBC 0-5 SEEN, Ur Squamous Epith Cells 0-5 SEEN, Urine Bacteria 0 SEEN, Urine Mucus 0 SEEN 11/17/24 15:15: Troponin T Hi Sens 2 Hr 441 H* Micro: Microbiology 11/17/24 13:20 Mucosa - Nose SARS-CoV-2, Influenza & RSV (PCR) - Final Imaging Radiology Impression Chest X-Ray 11/17/24 15:21 IMPRESSION: 1. Bilateral airspace opacities, compatible with pneumonitis/pneumonia. 2. Moderate cardiomegaly. 3. Slight increased size of a right midlung pulmonary nodule, previously characterized as a granuloma. Without access to patient chart, this diagnosis can not be confirmed. Correlation with patient's chart recommended and possible outpatient nonemergent CT chest could be obtained for further characterization if clinically indicated, not recently performed and/or inability to confirm benign pathology. Reading Location: [facility] Hip/Pelvis X-Ray 11/17/24 15:21 IMPRESSION: DEGENERATIVE OSTEOARTHROSIS. NO ACUTE FINDINGS. Reading Location: [facility] Assessment & Plan Assessment/Plan (1) Septic shock: PLAN: Plan # Septic shock suspect secondary to pneumonia -Patient hypotensive with blood pressure of 88/62 ultimately not responsive to IV fluids requiring pressor support -Additionally patient hypoxic at 83% on room air and has creatinine which is suspected to be elevated from baseline at 2.45 with previous values around 0.7 -White blood cell count noted to be 21.2 with a lactic acid of 14.1 -BNP nearly 22,000, troponin 482 and patient with elevated liver function tests as well, suspect this is secondary to her hypotension and hypoxia -Patient fluid resuscitated but requiring Levophed -Pancultures -UA not suggestive of UTI -Chest x-ray suggestive of pneumonia -DuoNebs and as needed albuterol -Sputum culture, COVID ordered, respiratory panel ordered -Urine antigens -Mucinex, I/S -Will also check stool studies given patient's nausea and diarrhea, denies any significant abdominal pain -Patient's imaging concerning for pneumonia but patient denies any significant changes in respiratory status or cough and given significance of patient's illness we will start broad-spectrum antibiotics and narrow as able as further results available and workup underway # Hypoxia with new O2 requirement suspect secondary to pneumonia -X-ray compatible with pneumonia -Management as above -Patient does not appear to be clinically overloaded even with elevated BNP patient denies any swelling or other concerns but does appear she is on home Lasix -Given her dry mucous membranes and significant volume depletion given very poorp.o. intake and suspected kidney failure will hold this for now but carefully monitor daily weights and I's and O's with low threshold to resume once patient stable -Continuing IV fluids however will run maintenance for 1 more liter, and this can be reevaluated ifpatient needs further fluids # Nausea and episode of diarrhea -Unclear if this is due to patient's dehydration and uremia or if there could beother etiology -Supportive care -IV fluids -Will check stool studies -Patient without impressive abdominal exam so this was not scanned, pending further workup and clinical course could consider scanning the abdomen however given lack of significant exam findings we will hold off acutely # Bilateral hip pain -Patient reports hip pain for months after trying to pick her up off theground with help -Sometimes will have pain more on the right, sometimes more on the left and sometimes both sides, does not note anything specific necessarily occurred todayor that this is changed over the past couple of days it is just an additional problem -Pain control as blood pressure allows -Hip/pelvis x-ray with degenerative osteoarthrosis -Given patient's report of also lower back pain and that this all occurred aftertrying to lift her up could consider further imaging with CT or MRI of lumbar spine and hips pending clinical progress, patient is stable could always consider this on an outpatient basis -PT/OT # Elevated troponin -Patient with elevated troponin of 482 and proBNP of nearly 22,000, suspect thatthis is part of theendorgan damage from her septic shock. -Treat underlying etiology -Repeat troponin did downtrend # Suspected NAT -Creatinine 2.45 with baseline seemingly around 0.7 -Suspect this is due to patient's septic shock/systemic illness -IV fluids, monitor I's and O's -Avoid nephrotoxic agents # Elevated liver function tests -Suspect shock liver given patient's hypotension and approximately -Fluid resuscitation -Will trend -Avoid hepatotoxic agents #Hx pafib -On xeralto and atenolol at home -Holding atenolol given hypotension #Hypertension -Holding home antihypertensives # Patient with history of psoriatic arthritis -On Skyrizi every 3 month self injection #GERD -Continue home famotidine #DVT ppx: Patient fully anticoagulated Elsy Perdomo MD Time spent in the patient's overall evaluation,decision-making process, review of diagnostic data, adjustment of management, discussion with other providers, nursing nursing and ancillary staff involved in patient's care documentation, 78Minutes Charges/Coding Visit Charges Inpatient E&M: 11419 Init Hosp L3 11/17/24 1704 Cosigner Signature (if applicable): CC: Dr. Elsy Perdomo MD; SILVIA GUTHRIE~ Signed [facility]03-30-2025 Radiology Diagnostic study note [facility] Imaging Services [address] [place], [place] [address] HIP, UNI W/ Pelvis 2-3 Views MR#: [id number] Acct: [id number] Name: LESLI ROSALES Rep #: [id number] : 1940 F 84 From: Nancy Nation MD PCP: SILVIA GUTHRIE Status: REG ER Study:HIP, UNI W/ Pelvis 2-3 Views Date of Ex am: 11/17/24 Exam# [id number] Ordering Dr: Yinka Pedraza DO PROCEDURE: HIP, UNI W/ PELVIS 2-3 VIEWS 11/17/2024 REASON FOR EXAM: 84-year-old female, HIP PAIN TECHNIQUE: Two views of the right hip with AP pelvis. COMPARISON: None. FINDINGS: Bones: Diffuse osseous demineralization. No acute fracture. No aggressive osseous lesions. Joints: Mild right and moderate left hip arthrosis. Moderate bilateral SI jointarthrosis. Soft tissues: Soft tissues are unremarkable. Other: Multiple surgical anchors along the lower abdomen, likely from prior hernia mesh repair. RAD/HIP, UNI W/ Pelvis 2-3 Views IMPRESSION: DEGENERATIVE OSTEOARTHROSIS. NO ACUTE FINDINGS. Reading Location: [facility] CC: Dr. Reza Pedraza DO; SILVIA GUTHRIE ~ Head Tennis Professional: Signed [facility]03-30-2025 Radiology Diagnostic study note [facility] Imaging Services [address] [place], [place] [address] Chest 1 View (Portable) MR#: [id number] Acct: [id number] Name: LESLI ROSALES Rep #: [id number] : 1940 F 84 From: Nancy Nation MD PCP: SILVIA GUTHRIE Status: REG ER Study:Chest 1 View (Portable) Date of Exam: 11/17/24 Exam# [id number] Ordering Dr: Yinka Pedraza DO PROCEDURE: CHEST 1 VIEW (PORTABLE) 11/17/2024 REASON FOR EXAM: 84-year-old female, SEPSIS TECHNIQUE: Frontal view of the chest. COMPARISON: Chest radiograph 04/08/2024. FINDINGS: Hardware: Stable right reverse total shoulder arthroplasty. Interval placement of a partially visualized right IJ central venous catheter with tip terminating in the right atrium. Heart: Moderate cardiomegaly with pulmonary vascular congestion. Lungs: Increased size of a right mid lung zone pulmonary nodule measuring 1.5 cm, previously 1.3 cm. Diffuse bilateral airspace opacities. No pleural effusion or pneumothorax. Bones: Degenerative changes are identified within the thoracic spine. RAD/Chest 1 View (Portable) IMPRESSION: 1. Bilateral airspace opacities, compatible with pneumonitis/pneumonia. 2. Moderate cardiomegaly. 3. Slight increased size of a right midlung pulmonary nodule, previously characterized as a granuloma. Without access to patient chart, this diagnosis can not be confirmed. Correlation with patient's chart recommended and possible outpatient nonemergent CT chest could be obtained for further characterization if clinically indicated, not recently performed and/or inability to confirm benign pathology. Reading Location: [facility] CC: Dr. Reza Pedraza, DO; SILVIA GUTHRIE ~ Head Tennis Professional: Signed [facility]01-30-2025 Telephone encounter Note* Telephone Encounter - Akshat Bermudez LPN - 09/19/2024 9:35 AM EST Spoke with Cesia at [facility]. Per our office records, patient was advised to continue Symbicort BID and Spiriva once per day. Will fax CT report and H&P to Dr. Guthrie ([phone]) Akshat Bermudez LPN [facility]01-30-2025 Miscellaneous Notes* Telephone Encounter - Akshat Bermudez LPN - 09/19/2024 9:35 AM EST Spoke with eCsia at [facility]. Per our office records, patient was advised to continue Symbicort BID and Spiriva once per day. Will fax CT report and H&P to Dr. Guthrie ([phone]) Akshat Bermudez LPN * Telephone Encounter - Tracy Mota LPN - 09/19/2024 8:[address] [facility] call on behave of Dr. Ariadne Guthrie. Dr. Guthrie is questioning why patient is not on a controller inhaler. Please call office back at [phone]. Tracy Mota LPN [facility] Telephone encounter Note * Telephone Encounter - Tracy Mota LPN - 09/19/2024 8:[address] [facility] call on behave of Dr. Ariadne Guthrie. Dr. Guthrie is questioning why patient is not on a controller inhaler. Please call office back at [phone]. Tracy Mota LPN [facility] Work Phone: 1(861) 335-717901-23-2025 History of Present illness Narrative* Keely Givens MD - 09/12/2024 11:45 AM EST Images from the original note were not included. . Respiratory [place] Note Patient name: Lesli Rosales PCP: Giselle Elizondo MD CC: Follow-up chest CT HPI: Lesli Rosales 84 year old female former less than 37-cxye-qccg smoker, quitting in 1975 with PMH significant for obesity, PAF, COPD, HTN, psoriatic arthritis, pulmonary nodules, chronic hypoxemic respiratory failure who was initially seen for possible pulmonary fibrosis. She was transferring her pulmonary care from the [facility]. I had no records, unable to obtain records after several attempts and patient is a very poor historian. Updated her chest CT which showed scattered calcified and non calcified pulmonary nodules, largest in her right upper lobe, minimal bronchiectasis, minimal reticulations, and adjacent ground glass infiltrate to the largest calcified nodule. Therapy for her COPD consists of Symbicort and Spiriva. She presents today to review her CT of the chest. Her chest CT shows improvement in the groundglass opacity adjacent to her right upper lobe calcified nodule, however, she has new nodular infiltrate in the lingula along with atelectasis and more prominent nodules in her left lower lobe. Official reading is pending. She states that she has beenshort of breath more in the morning and has been using her oxygen more regularly. She has had significant throat clearing and some hoarseness/decreased phonation. She has attributed this to postnasaldrip. She has not been ill with any upper respiratory infection. She has had some chest congestion but is unable to expectorate any phlegm. No fevers or chills. No wheezing. DATA: Imaging / Diagnostic Studies: Chest CT 12/2023: Chest CT today: Chest CT reviewed with interpretation per HPI PAST MEDICAL HISTORY Diagnosis Date A-fib (HCC) Chronic obstructive pulmonary disease (COPD) (HCC) Hypertension Lung nodules Psoriasis Psoriatic arthritis (HCC) ALLERGIES No Known Allergies amitriptyline (ELAVIL) 25 mg tablet 25 mg daily at bedtime. hydroCHLOROthiazide 12.5 mg capsule TAKE 1 CAPSULE BY MOUTH ONCE DAILY famotidine (PEPCID) 20 mg tablet TAKE 1 TABLET BY MOUTH ONCE DAILY atenolol (TENORMIN) 25 mg tablet Take 1 tablet by mouth once daily. rivaroxaban (XARELTO) 20 mg tablet Take 1 tablet by mouth daily with dinner. tiotropium (SPIRIVA WITH HANDIHALER) 18 mcg inhalation capsule inhale THE CONTENTS OF ONE CAPSULE IN THE HANDIHALER every morning budesonide-formoterol (SYMBICORT) 160-4.5 mcg/actuation inhaler Inhale 2 Puffs as instructed two times a day. gabapentin (NEURONTIN) 100 mg capsule Take 100 mg by mouth three times a day. hydrOXYzine HCl (ATARAX) 25 mg tablet Take 1 tablet by mouth three times a day as needed. risankizumab-rzaa (SKYRIZI) 150 mg/mL injection Inject 150 mg subcutaneously every 3 months. levoFLOXacin (LEVAQUIN) 500 mg tablet Take 1 tablet by mouth once daily for 7 days. lidocaine (LIDODERM) 5 % albuterol HFA (PROVENTIL HFA, VENTOLIN HFA) 90 mcg/actuation inhaler baclofen (LIORESAL) 5 mg tablet Take 5 mg by mouth twice daily. betamethasone valerate 0.1 % cream Apply to affected area once daily. Apply to arms Social History Tobacco Use Smoking status: Former Current packs/day: 0.00 Average packs/day: 1 pack/day for 17.0 years (17.0 ttl pk-yrs) Types: Cigarettes Start date: 09/22/1958 Quit date: 09/22/1975 Years since quittin.0 Smokeless tobacco: Never Vaping Use Vaping status: Never Used Substance Use Topics Alcohol use: Not Currently Drug use: Never FAMILY HISTORY Adopted: Yes PMH, Social history, family history and surgical history reviewed and updated in EMR REVIEW OF SYSTEMS: CONSTITUTIONAL: No fevers, chills, nightsweats, unintended weight loss HEENT: Some nasal congestion/sinus symptoms CARDIOVASCULAR: No chest pain, palpitations, orthopnea. Mild edema PULM: See HPI GI: No dysphagia/odynophagia, problematic reflux NEURO: No new balance problems, peripheral weakness/paresthesias or numbness of concern. PHYSICAL EXAMINATION: BP 122/84 Pulse 104 Resp 18 Wt 160 lb (72.6kg) SpO2 91% General Appearance: Obese elderly female, NAD. Skin: Skin color, texture, turgor normal, no suspicious rashes or lesions. Head: Normocephalic, no masses, lesions, tenderness or abnormalities. Oropharynx: No oral lesions or thrush. Neck: No masses or adenopathy. Chest wall: Kyphosis Lungs: Not labored, normal to percussion, scattered crackles. Heart: Regular rate and rhythm, systolic murmur. Extremities: Mild pitting edema, no clubbing. Assessment/Plan: 1. Lung nodules -New nodularity noted on CT. Official interpretation pending. Appears inflammatory -Course of Levaquin follow-up CT. May need PET scan plus or minus bronchoscopy 2. Moderate COPD -She will continue on triple inhaler therapy -Continue abstinence from tobacco 3. Former cigarette smoker -Former smoker with sequelae of COPD -Does not qualify for lung cancer screening based on smoking history less than 20 pack years and duration of smoking cessation Keely Givens MD [facility] [place] [facility]25 NoteHNO ID: [id number] Author: KEELY GIVENS MD Service: ? Author Type: Physician Type: Progress Notes Filed: 09/12/2024 13:47 Note Text: . [facility] [place] Note Patient name: Lesli Rosales PCP: Giselle Elizondo MD CC: Follow-up chest CT HPI: Lesli Rosales 84 year old female former less than 81-ddmg-emps smoker, quitting in 1975 with PMH significant for obesity, PAF, COPD, HTN, psoriatic arthritis, pulmonary nodules, chronic hypoxemic respiratory failure who was initially seen for possible pulmonary fibrosis. She was transferring her pulmonary care from the [facility]. I had no records, unable to obtain records after several attempts and patient is a very poor historian. Updated her chest CT which showed scattered calcified and non calcified pulmonary nodules, largest in her right upper lobe, minimal bronchiectasis, minimal reticulations, and adjacent ground glass infiltrate to the largest calcified nodule. Therapy for her COPD consists of Symbicort and Spiriva. She presents today to review her CT of the chest. Her chest CT shows improvement in the groundglass opacity adjacent to her right upper lobe calcified nodule, however, she has new nodular infiltrate in the lingula along with atelectasis and more prominent nodules in her left lower lobe. Official reading is pending.She states that she has been short of breath more in the morning and hasbeen using her oxygen more regularly. She has had significant throat clearing and some hoarseness/decreased phonation. She has attributed this to postnasal drip. She has not been ill with any upper respiratory infection. She has had some chest congestion but is unable to expectorate any phlegm. No fevers or chills. No wheezing. DATA: Imaging / Diagnostic Studies: Chest CT 12/2023: Chest CT today: Chest CT reviewed with interpretation per HPI PAST MEDICAL HISTORY Diagnosis Date A-fib (HCC) Chronic obstructive pulmonary disease (COPD) (HCC) Hypertension Lung nodules Psoriasis Psoriatic arthritis (HCC) ALLERGIES No Known Allergies amitriptyline (ELAVIL) 25 mg tablet 25 mg daily at bedtime. hydroCHLOROthiazide 12.5 mg capsule TAKE 1 CAPSULE BY MOUTH ONCE DAILY famotidine (PEPCID) 20 mg tablet TAKE 1 TABLET BY MOUTH ONCE DAILY atenolol (TENORMIN) 25 mg tablet Take 1 tablet by mouth once daily. rivaroxaban (XARELTO) 20 mg tablet Take 1 tablet by mouth daily with dinner. tiotropium (SPIRIVA WITH HANDIHALER) 18 mcg inhalation capsule inhale THE CONTENTS OF ONE CAPSULE IN THE HANDIHALER every morning budesonide-formoterol (SYMBICORT) 160-4.5 mcg/actuation inhaler Inhale 2 Puffs as instructed two times a day. gabapentin (NEURONTIN) 100 mg capsule Take 100 mg by mouth three times a day. hydrOXYzine HCl (ATARAX) 25 mg tablet Take 1 tablet by mouth three times a day as needed. risankizumab-rzaa (SKYRIZI) 150 mg/mL injection Inject 150 mg subcutaneously every 3 months. levoFLOXacin (LEVAQUIN) 500 mg tablet Take 1 tablet by mouth once daily for 7 days. lidocaine (LIDODERM) 5 % albuterol HFA (PROVENTIL HFA, VENTOLIN HFA) 90 mcg/actuation inhaler baclofen (LIORESAL) 5 mg tablet Take 5 mg by mouth twice daily. betamethasone valerate 0.1 % cream Apply to affected area once daily. Apply to arms Social History Tobacco Use Smoking status: Former Current packs/day: 0.00 Average packs/day: 1 pack/day for 17.0 years (17.0 ttl pk-yrs) Types: Cigarettes Start date: 09/22/1958 Quit date: 09/22/1975 Years since quittin.0 Smokeless tobacco: Never Vaping Use Vaping status: Never Used Substance Use Topics Alcohol use: Not Currently Drug use: Never FAMILY HISTORY Adopted: Yes PMH, Social history, family history and surgical history reviewed and updated in EMR REVIEW OF SYSTEMS: CONSTITUTIONAL: No fevers, chills, nightsweats, unintended weight loss HEENT: Some nasal congestion/sinus symptoms CARDIOVASCULAR: No chest pain, palpitations, orthopnea. Mild edema PULM: See HPI GI: No dysphagia/odynophagia, problematic reflux NEURO: No new balance problems, peripheral weakness/paresthesias or numbness of concern. PHYSICAL EXAMINATION: BP 122/84 Pulse 104 Resp 18 Wt 160 lb (72.6kg) SpO2 91% General Appearance: Obese elderly female, NAD. Skin: Skin color, texture, turgor normal, no suspicious rashes or lesions. Head: Normocephalic, no masses, lesions, tenderness or abnormalities. Oropharynx: No oral lesions or thrush. Neck: No masses or adenopathy. Chest wall: Kyphosis Lungs: Not labored, normal to percussion, scattered crackles. Heart: Regular rate and rhythm, systolic murmur. Extremities: Mild pitting edema, no clubbing. Assessment/Plan: 1. Lung nodules -New nodularity noted on CT. Official interpretation pending. Appears inflammatory -Course of Levaquin follow-up CT. May need PET scan plus or minus bronchoscopy 2. Moderate COPD -She will c (more content not included)...[facility]01-23-2025 History of Present illness Narrative* Horacio Hudson, RT(R) - 09/12/2024 11:00 AM EST Radiology Service Progress Note PATIENT NAME: Lesli Rosales DATE OF SERVICE: September 12, 2024 TIME: 2:34 PM PATIENT IDENTITY VERIFICATION COMPLETED USING TWO (2) IDENTIFIERS: Name and Date of confirmedby patient verbally. FALL SCREENING: Has the patient had 2 falls in the last year or 1 fall with injury or currently using an Ambulatory Assistive Device (Walker, Cane, Wheelchair, Crutches, etc.)? No PATIENT GENDER DATA: Assigned female at . status: : No status:NO. PATIENT RELEVANT IMPLANT DATA REVIEWED: Yes PATIENT PRESENTS WITH AN IMPLANTABLE OR ATTACHED JUNIOR COPYWRITER: No RADIOLOGY DEPARTMENT: CT; Exam(s) Completed: Chest PERIPHERAL IV DATA: Not applicable SIGNED BY: RT Radha(Martínez) September 12, 2024 2:34 PM documented in this encounterProtest[facility]01-23-2025 NoteHNO ID: [id number] Author: HORACIO HUDSON RT(Martínez) Service: ? Author Type: Interceptor Operator Type: Progress Notes Filed: 09/12/2024 14:35 Note Text: Radiology Service Progress Note PATIENT NAME: Lesli Rosales DATE OF SERVICE: September 12, 2024 TIME: 2:34 PM PATIENT IDENTITY VERIFICATION COMPLETED USING TWO (2) IDENTIFIERS: Name and Date of confirmed by patient verbally. FALL SCREENING: Has the patient had 2 falls in the last year or 1 fall with injury or currently using an Ambulatory Assistive Device (Walker, Cane, Wheelchair, Crutches, etc.)? No PATIENT GENDER DATA: Assigned female at . status: : No status: NO. PATIENT RELEVANT IMPLANT DATA REVIEWED: Yes PATIENT PRESENTS WITH AN IMPLANTABLE OR ATTACHED JUNIOR COPYWRITER: No RADIOLOGY DEPARTMENT: CT; Exam(s) Completed: Chest PERIPHERAL IV DATA: Not applicable SIGNED BY: RT Radha(Martínez) September 12, 2024 2:34 [facility]12-27-2024 Telephone encounter Note* Telephone Encounter - Marjorie Redman LPN - 08/16/2024 3:42 PM EST Received 08/16/2024 from [facility]. Placed in provider's inbox for review. Route to [place] for faxing. [facility]12-27-2024 Miscellaneous Notes* Telephone Encounter - Marjorie Redman LPN - 08/16/2024 3:42 PM EST Received 08/16/2024 from [facility]. Placed in provider's inbox for review. Route [place] for faxing. documented in this encounterProtest[facility] Hospital12-19-2024 Telephone encounter Note * Telephone Encounter - Maddie Costa LPN - 08/08/2024 6:02 PM EST Fax sent [facility]12-19-2024 Miscellaneous Notes* Telephone Encounter - Maddie Costa LPN - 08/08/2024 6:02 PM EST Fax sent * Telephone Encounter - Marjorie Redman LPN - 07/31/2024 11:20 AM EST Orders from [facility] Received and placed in providers box * Telephone Encounter - Dania Jones - 07/31/2024 10:46 AM EST [employer] Caller Name: Giovanna Call Back Number [phone] Reason for Call: 5 year renewal on oxygen machine Additional Information: Faxed on 07-30-24. Checking on receipt of faxed oder. [place] encounterC[place] [id number] Telephone encounter Note * Telephone Encounter - Marjorie Redman LPN - 07/31/2024 11:20 AM EST Orders from [facility] Received and placed in providers box [facility]12-11-2024 Telephone encounter Note* Telephone Encounter - Dania Jones - 07/31/2024 10:46 AM EST [employer] Caller Name: Giovanna Call Back Number [phone] Reason for Call: 5 year renewal on oxygen machine Additional Information: Faxed on 07-30-24. Checking on receipt of faxed oder. 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 Looks like our staff tried to call her and were unable. Please assist in scheduling the MRI if not already done so. Ana Meza APRN.MARJ * Telephone Encounter - Aurea Loya - 07/22/2024 10:19 AM EST Lesli is calling Giselle Elizondo MD today with concern regarding Results and Patient Question she would like to ask a nurse. She is asking if the US showed anything on the Pancreas. Please call toreview. Patient has been identified by name and birthdate. Duration of symptoms: N/A Person calling: self Call patient at: at home [phone] (home) [phone] (cell) Was an appointment scheduled: No Closing statement: Results or non-symptom based questions: Thank you for calling [facility], your call will be returned within the next business day. Aurea Loya documented in this encounterProtest[facility] Hospital12-02-2024 Telephone encounter Note * Telephone Encounter - Ana Meza APRN.CNP - 07/22/2024 2:04 PM EST No new concerns on the US, showing the pancreatic cyst as before, due for MRI for surveillance of this lesion, which was discussed at the time of the visit and previously ordered. Looks like our staff tried to call her and were unable. Please assist in scheduling the MRI if not already done so. Ana Meza APRN.MARJ [facility]12-02-2024 Telephone encounter Note* Telephone Encounter - Aurea Loya - 07/22/2024 10:19 AM EST Lesli is calling Giselle Elizondo MD today with concern regarding Results and Patient Question she would like to ask a nurse. She is asking if the US showed anything on the Pancreas. Please call torstaciw. Patient has been identified by name and birthdate. Duration of symptoms: N/A Person calling: self Call patient at: at home [phone] (home) [phone] (cell) Was an appointment scheduled: No Closing statement: Results or non-symptom based questions: Thank you for calling [facility], your call will be returned within the next business day. Aurea Loya [facility]11-21-2024 History of Present illness Narrative* Valerie Gutierrez RDMS - 07/11/2024 10:00 AM EST Radiology Service Progress Note PATIENT NAME: Lesli Rosales DATE OF SERVICE: July 11, 2024 TIME: 10:07 AM PATIENT IDENTITY VERIFICATION COMPLETED USING TWO (2) IDENTIFIERS: Name and Date of confirmedby patient verbally. FALL SCREENING: Has the patient had 2 falls in the last year or 1 fall with injury or currently using an Ambulatory Assistive Device (Walker, Cane, Wheelchair, Crutches, etc.)? Yes, Patient High Riskfor Falls What interventions were put in place to prevent falls during this visit? Offered Assistance with Transfers/Clothing and Increased Observations by Caregivers PATIENT GENDER DATA: Female. status: : No status: NO. PATIENT RELEVANT IMPLANT DATA REVIEWED: Not Applicable PATIENT PRESENTS WITH AN IMPLANTABLE OR ATTACHED JUNIOR COPYWRITER: No RADIOLOGY DEPARTMENT: Ultrasound PERIPHERAL IV DATA: Not applicable SIGNED BY: Valerie Gutierrez RDMS July 11, 2024 10:07 AM documented in this encounterProtestant Hospital11-21-2024 NoteHNO ID: [id number] Author: VALERIE GUTIERREZ RDMS Service: ? Author Type: Interceptor Operator Type: Progress Notes Filed: 07/11/2024 10:08 Note Text: Radiology Service Progress Note PATIENT NAME: Lesli Rosales DATE OF SERVICE: July 11, 2024 TIME: 10:07 AM PATIENT IDENTITY VERIFICATION COMPLETED USING TWO (2) IDENTIFIERS: Name and Date of confirmed by patient verbally. FALL SCREENING: Has the patient had 2 falls in the last year or 1 fall with injury or currently using an Ambulatory Assistive Device (Walker, Cane, Wheelchair, Crutches, etc.)? Yes, Patient High Risk for Falls What interventions were put in place to prevent falls during this visit? Offered Assistance with Transfers/Clothing and Increased Observations by Caregivers PATIENT GENDER DATA: Female. status: : No status: NO. PATIENT RELEVANT IMPLANT DATA REVIEWED: Not Applicable PATIENT PRESENTS WITH AN IMPLANTABLE OR ATTACHED JUNIOR COPYWRITER: No RADIOLOGY DEPARTMENT: Ultrasound PERIPHERAL IV DATA: Not applicable SIGNED BY: Valerie Gutierrez RDMS July 11, 2024 10:[address] [facility]11-20-2024 Telephone encounter Note* Telephone Encounter - Ana Meza APRN.CNP - 07/10/2024 4:41 PM EST MRI re-ordered, medication sent Ana Meza APRN.CNP [facility]11-20-2024 Miscellaneous Notes* Telephone Encounter - Ana Meza APRN.CNP - 07/10/2024 4:41 PM EST MRI re-ordered, medication sent Ana Meza APRN.CNP * Telephone Encounter - Chloe Noriega - 07/10/2024 3:48 PM EST Lesli was referred for an MRI today, and initially this was ordered with sedation. After reviewing all location options that are able to provide sedation, Lesli requested to forgothe sedation and be prescribed valium to manage her symptoms related to the MRI for the procedure. Provider team, if agreeable, could a revised order for her MRI be placed that does not advise for sedation? If agreeable, she requested an RX [facility] in [place]. Please adviseChloe documented in this encounterProtestant Hospital11-20-2024 Telephone encounter Note * Telephone Encounter - Chloe Noriega - 07/10/2024 3:48 PM EST Lesli was referred for an MRI today, and initially this was ordered with sedation. After reviewing all location options that are able to provide sedation, Lesli requested to forgothe sedation and be prescribed valium to manage her symptoms related to the MRI for the procedure. Provider team, if agreeable, could a revised order for her MRI be placed that does not advise for sedation? If agreeable, she requested an RX for valium [facility] in [place]. Please adviseChloe [facility]11-20-2024 NoteHNO ID: [id number] Author: ANA MEZA APRN.ACCOUNT MANAGER TRAINEE Service: ? Author Type: Nurse Practitioner Type: Progress Notes Filed: 07/10/2024 11:43 Note Text: This note was created using [employer]agara. Subjective Lesli Rosales is a 84 year old female. Patient reports new onset epigastric pain starting about 3 weeks ago, radiates straight through to back. Only occurs with eating. Pain lasts for about a half hour. Takes famotidine every day for GERD, 20 mg in the morning. Pain does not come up into throat. History of hiatal hernia. Feels hard and swollen in epigastric area. Doesn't feel bloated. Does have excess flatulence but no burping. Reports that she has a thoracic fracture of T8. Managed by Dr. Giselle Jerez--orthopedist [place]. Had back brace fitted, but didn't wear it today. May have surgery on her spine. Discussed recommendation to repeat pancreatic MRI 1 year from previous study, due now. Patient also has chest CT scheduled in August for follow-up of lung nodules. Has chronic constipation, will go several days without a bowel movement, then takes something to go. Was previously advised by GI to take Miralax daily but she has not done so. The history is provided by the patient. Review of Systems Constitutional: Negative for fever. HENT: Negative for trouble swallowing. Respiratory: Negative for shortness of breath. Cardiovascular: Negative for chest pain. Gastrointestinal: Positive for abdominal pain, constipation (chronic) and nausea. Negative for diarrhea and vomiting. PAST MEDICAL HISTORY Diagnosis Date A-fib (HCC) Chronic obstructive pulmonary disease (COPD) (HCC) Hypertension Lung nodules Psoriasis Psoriatic arthritis (HCC) PAST SURGICAL HISTORY Procedure Laterality Date APPENDECTOMY BACK SURGERY HX 1985 CHOLECYSTECTOMY HX COLONOSCOPY SCREENING EGD W/O BRSH SPEC VARICIES INJ REPAIR OF RECTOCELE REPAIR UMBILICAL HERNIA 2009 SHX TOTAL SHOULDER REVERSE Right SLING OPER STRES INCONTINENCE UMBILICAL HERNIA REPAIR 5 OR OLDER 1965 VAGINAL HYSTERECTOMY ALLERGIES Patient has no known allergies. MEDICATIONS hydroCHLOROthiazide 12.5 mg capsule TAKE 1 CAPSULE BY MOUTH ONCE DAILY famotidine (PEPCID) 20 mg tablet TAKE 1 TABLET BY MOUTH ONCE DAILY atenolol (TENORMIN) 25 mg tablet Take 1 tablet by mouth once daily. rivaroxaban (XARELTO) 20 mg tablet Take 1 tablet by mouth daily with dinner. tiotropium (SPIRIVA WITH HANDIHALER) 18 mcg inhalation capsule inhale THE CONTENTS OF ONE CAPSULE IN THE HANDIHALER every morning budesonide-formoterol (SYMBICORT) 160-4.5 mcg/actuation inhaler Inhale 2 Puffs as instructed two times a day. lidocaine (LIDODERM) 5 % gabapentin (NEURONTIN) 100 mg capsule Take 100 mg by mouth three times a day. hydrOXYzine HCl (ATARAX) 25 mg tablet Take 1 tablet by mouth three times a day as needed. risankizumab-rzaa (SKYRIZI) 150 mg/mL injection Inject 150 mg subcutaneously every 3 months. albuterol HFA (PROVENTIL HFA, VENTOLIN HFA) 90 mcg/actuation inhaler baclofen (LIORESAL) 5 mg tablet Take 5 mg by mouth twice daily. betamethasone valerate 0.1 % cream Apply to affected area once daily. Apply to arms iv contrast (will be provided with radiology test) MRI PANC/IRVING Inject, intravenously, once for 1 dose. No IV access, insert saline lock prior to the beginning of sedation, infusion, injection of imaging exam. Discontinue saline lock post exam. If Pt. has a central line or IVAD, may access for administration according to line specific nursing protocol. Once exam is complete flush line and de-access according to line specific nursing protocol in the MR contrast administration guidelines link. FAMILY HISTORY Adopted: Yes Social History Tobacco Use Smoking status: Former Current packs/day: 0.00 Average packs/day: 1 pack/day for 17.0 years (17.0 ttl pk-yrs) Types: Cigarettes Start date: 09/22/1958 Quit date: 09/22/1975 Years since quittin.8 Smokeless tobacco: Never Vaping Use Vaping status: Never Used Substance Use Topics Alcohol use: Not Currently Drug use: Never Objective BP 145/88 Pulse 69 Ht 154 cm (5' 0.63) Wt 73 kg (160 lb 15 oz) BMI 30.78 kg/m? Physical Exam Vitals and nursing note reviewed. Constitutional: Appearance: She is well-developed. She is not ill-appearing. Cardiovascular: Rate and Rhythm: Normal rate and regular rhythm. Heart sounds: Normal heart sounds. Pulmonary: Effort: Pulmonary effort is normal. Breath sounds: Normal breath sounds. Abdominal: General: Bowel sounds are normal. Palpations: Abdomen is soft. Tenderness: There is abdominal tenderness in the epigastric area. Comments: Unable to lie flat on back for exam Skin: General: Skin is warm and dry. Neurological: Mental Status: She is alert and oriented to person, place, and time. Assessment and Plan 1. Epigastric pain Likely related to GERD and hiatal hernia. Recommend stat US, i (more content not included)...[facility]11-20-2024 History of Present illness Narrative* Ana Meza, LAVELLE.ACCOUNT MANAGER TRAINEE - 07/10/2024 10:05 AM EST This note was created using Treke[employer]. Subjective Lesli Rosales is a 84 year old female. Patient reports new onset epigastric pain starting about 3 weeks ago, radiates straight through to back. Only occurs with eating. Pain lasts for about a half hour. Takes famotidine every day for GERD, 20 mg in the morning. Pain does not come up into throat. History of hiatal hernia. Feels hard and swollen in epigastric area. Doesn't feel bloated. Does have excess flatulence but no burping. Reports that she has a thoracic fracture of T8. Managed by Dr. Giselle Jerez--orthopedist [place]. Had back brace fitted, but didn't wear it today. May have surgery on her spine. Discussed recommendation to repeat pancreatic MRI 1 year from previous study, due now. Patient alsohas chest CT scheduled in August for follow-up of lung nodules. Has chronic constipation, will go several days without a bowel movement, then takes something to go. Was previously advised by GI to take Miralax daily but she has not done so. The history is provided by the patient. Review of Systems Constitutional: Negative for fever. HENT: Negative for trouble swallowing. Respiratory: Negative for shortness of breath. Cardiovascular: Negative for chest pain. Gastrointestinal: Positive for abdominal pain, constipation (chronic) and nausea. Negative for diarrhea and vomiting. PAST MEDICAL HISTORY Diagnosis Date A-fib (HCC) Chronic obstructive pulmonary disease (COPD) (HCC) Hypertension Lung nodules Psoriasis Psoriatic arthritis (HCC) PAST SURGICAL HISTORY Procedure Laterality Date APPENDECTOMY BACK SURGERY HX 1984 CHOLECYSTECTOMY HX COLONOSCOPY SCREENING EGD W/O BRSH SPEC VARICIES INJ REPAIR OF RECTOCELE REPAIR UMBILICAL HERNIA 2009 SHX TOTAL SHOULDER REVERSE Right SLING OPER STRES INCONTINENCE UMBILICAL HERNIA REPAIR 5 OR OLDER 1965 VAGINAL HYSTERECTOMY ALLERGIES Patient has no known allergies. MEDICATIONS hydroCHLOROthiazide 12.5 mg capsule TAKE 1 CAPSULE BY MOUTH ONCE DAILY famotidine (PEPCID) 20 mg tablet TAKE 1 TABLET BY MOUTH ONCE DAILY atenolol (TENORMIN) 25 mg tablet Take 1 tablet by mouth once daily. rivaroxaban (XARELTO) 20 mg tablet Take 1 tablet by mouth daily with dinner. tiotropium (SPIRIVA WITH HANDIHALER) 18 mcg inhalation capsule inhale THE CONTENTS OF ONE CAPSULE IN THE HANDIHALER every morning budesonide-formoterol (SYMBICORT) 160-4.5 mcg/actuation inhaler Inhale 2 Puffs as instructed two times a day. lidocaine (LIDODERM) 5 % gabapentin (NEURONTIN) 100 mg capsule Take 100 mg by mouth three times a day. hydrOXYzine HCl (ATARAX) 25 mg tablet Take 1 tablet by mouth three times a day as needed. risankizumab-rzaa (SKYRIZI) 150 mg/mL injection Inject 150 mg subcutaneously every 3 months. albuterol HFA (PROVENTIL HFA, VENTOLIN HFA) 90 mcg/actuation inhaler baclofen (LIORESAL) 5 mg tablet Take 5 mg by mouth twice daily. betamethasone valerate 0.1 % cream Apply to affected area once daily. Apply to arms iv contrast (will be provided with radiology test) MRI PANC/IRVING Inject, intravenously, once for 1 dose. No IV access, insert saline lock prior to the beginning of sedation, infusion, injection of imaging exam. Discontinue saline lock post exam. If Pt. has a central line or IVAD, may access for administration according to line specific nursing protocol. Once exam is complete flush line and de-access according to line specific nursing protocol in the MR contrast administration guidelines link. FAMILY HISTORY Adopted: Yes Social History Tobacco Use Smoking status: Former Current packs/day: 0.00 Average packs/day: 1 pack/day for 17.0 years (17.0 ttl pk-yrs) Types: Cigarettes Start date: 09/22/1958 Quit date: 09/22/1975 Years since quittin.8 Smokeless tobacco: Never Vaping Use Vaping status: Never Used Substance Use Topics Alcohol use: Not Currently Drug use: Never Objective BP 145/88 Pulse 69 Ht 154 cm (5' 0.63) Wt 73 kg (160 lb 15 oz) BMI 30.78 kg/m Physical Exam Vitals and nursing note reviewed. Constitutional: Appearance: She is well-developed. She is not ill-appearing. Cardiovascular: Rate and Rhythm: Normal rate and regular rhythm. Heart sounds: Normal heart sounds. Pulmonary: Effort: Pulmonary effort is normal. Breath sounds: Normal breath sounds. Abdominal: General: Bowel sounds are normal. Palpations: Abdomen is soft. Tenderness: There is abdominal tenderness in the epigastric area. Comments: Unable to lie flat on back for exam Skin: General: Skin is warm and dry. Neurological: Mental Status: She is alert and oriented to person, place, and time. Assessment and Plan 1. Epigastric pain Likely related to GERD and hiatal hernia. Recommend stat US, increase famotidine to 40mg and take at bedtime on empty stomach. Avoid food triggers, sit upright several hours after eating. F/u with GIif persistent pain. ER for red flag symptoms. - US ABD RIGHT UPPER QUADRANT; Future 2. Pancreatic cyst Due for repeat MRI for surveillance. - MRI PANC/IRVING WO/W IVCON; Future - MRI 3D POST PROCESSING; Future - iv contrast (will be provided with radiology test); MRI PANC/IRVING Inject, intravenously, once for 1 dose. No IV access, insert saline lock prior to the beginning of sedation, infusion, injection of imaging exam. Discontinue saline lock post exam. If Pt. has a central line or IVAD, may access for administration according to line specific nursing protocol. Once exam is complete flush line and de-access according to line specific nursing protocol in the MR contrast administration guidelines link.Dispense: 1 Each; Refill: 0 Ana Meza APRN.MARJ [facility] Telephone encounter Note * Telephone Encounter - Keerthi Hanson RN - 07/09/2024 12:39 PM EST Triaged patient. Past few weeks c/o pain in between breast bone that radiates to back. Whenever she eats or takes medicine it makes yesenia pain worse. Food does not feel like it is going down right-denies choking. Aches constantly. Hx hiatal hernia. When she saw Pain management she turned on stomach and cracked 3 ribs and a compound fracture in spine. Has not seen a doctor for this pain, Pain meds do not help this pain. Scheduled OV for 07/10 for eval. Keerthi Hanson RN [facility]11-19-2024 Miscellaneous Notes* Telephone Encounter - Keerthi Hanson RN - 07/09/2024 12:39 PM EST Triaged patient. Past few weeks c/o pain in between breast bone that radiates to back. Whenever she eats or takes medicine it makes yesenia pain worse. Food does not feel like it is going down right-denies choking. Aches constantly. Hx hiatal hernia. When she saw Pain management she turned on stomach and cracked 3 ribs and a compound fracture in spine. Has not seen a doctor for this pain, Pain meds do not help this pain. Scheduled OV for 07/10 for evbessie. Keerthi Hanson RN * Telephone Encounter - Aurea Loya - 07/09/2024 12:28 PM EST Lesli is calling Giselle Elizondo MD today with concern regarding Symptoms of agonizing pain thatruns from the front between her breast bone to her back. Stated she recently twisted to get on the table at a provider's office and cracked her ribs and is wondering if she did something to her stomach or her hiatal hernia. Patient has been identified by name and birthdate. Duration of symptoms: N/A Person calling: self Call patient at: at home [phone] (home) Was an appointment scheduled: No Closing statement: Symptom Call: Thank you for calling [facility], your call is very important. A nurse will call in approximately 2-4 hours during business hours. If this is an emergency, please contact 911. Aurea Loya documented [facility]11-[facility]24 Telephone encounter Note * Telephone Encounter - Aurea Loya - 07/09/2024 12:28 PM EST Lesli is calling Giselle Elizondo MD today with concern regarding Symptoms of agonizing pain thatruns from the front between her breast bone to her back. Stated she recently twisted to get on the table at a provider's office and cracked her ribs and is wondering if she did something to her stomach or her hiatal hernia. Patient has been identified by name and birthdate. Duration of symptoms: N/A Person calling: self Call patient at: at home [phone] (home) Was an appointment scheduled: No Closing statement: Symptom Call: Thank you for calling [facility], your call is very important. A nurse will call in approximately 2-4 hours during business hours. If this is an emergency, please contact 911. Aurea Loya [facility]10-29-2024 Telephone encounter Note* Telephone Encounter - Marjorie Redman LPN - 06/18/2024 10:46 AM EDT Prescription Refill Information The patient has been identified by name and date of : Yes Caregiver verified no other encounters exist for this prescription request: Yes Caregiver confirmed with patient/requestor that no other refills are due, in the near future, with this provider at this time: Yes The last office visit in the department: 05/29/2024 Does the patient have a future office visit with this provider/department: No Requested Prescriptions Pending Prescriptions Disp Refills hydroCHLOROthiazide 12.5 mg capsule [Pharmacy Med Name: hydroCHLOROthiazide 12.5 MG Oral Capsule] 100 capsule 2 Sig: TAKE 1 CAPSULE BY MOUTH ONCE DAILY famotidine (PEPCID) 20 mg tablet [Pharmacy Med Name: Famotidine 20 MG Oral Tablet] 100 tablet 2 Sig: TAKE 1 TABLET BY MOUTH ONCE DAILY Marjorie Redman LPN June 18, 2024 10:46 AM [facility]10-29-2024 Miscellaneous Notes* Telephone Encounter - Marjorie Redman LPN - 06/18/2024 10:46 AM EDT Prescription Refill Information The patient has been identified by name and date of : Yes Caregiver verified no other encounters exist for this prescription request: Yes Caregiver confirmed with patient/requestor that no other refills are due, in the near future, with this provider at this time: Yes The last office visit in the department: 05/29/2024 Does the patient have a future office visit with this provider/department: No Requested Prescriptions Pending Prescriptions Disp Refills hydroCHLOROthiazide 12.5 mg capsule [Pharmacy Med Name: hydroCHLOROthiazide 12.5 MG Oral Capsule] 100 capsule 2 Sig: TAKE 1 CAPSULE BY MOUTH ONCE DAILY famotidine (PEPCID) 20 mg tablet [Pharmacy Med Name: Famotidine 20 MG Oral Tablet] 100 tablet 2 Sig: TAKE 1 TABLET BY MOUTH ONCE DAILY Marjorie Redman LPN June 18, 2024 10:46 AM documented in this [facility]Pro[facility]10-25-[facility]24 Telephone encounter Note * Telephone Encounter - Giselle Elizondo MD - 06/14/2024 5:09 PM EDT The following approved medication requests have been transmitted electronically. Requested Prescriptions Signed Prescriptions Disp Refills atenolol (TENORMIN) 25 mg tablet 90 tablet 3 Sig: Take 1 tablet by mouth once daily. Authorizing Provider: GISELLE ELIZONDO MD [facility]10-25-2024 Miscellaneous Notes* Telephone Encounter - Giselle Elizondo MD - 06/14/2024 5:09 PM EDT The following approved medication requests have been transmitted electronically. Requested Prescriptions Signed Prescriptions Disp Refills atenolol (TENORMIN) 25 mg tablet 90 tablet 3 Sig: Take 1 tablet by mouth once daily. Authorizing Provider: GISELLE ELIZONDO MD * Telephone Encounter - Dania Jones - 06/14/2024 10:08 AM EDT Prescription Refill Information The patient has been identified by name and date of : Yes Caregiver verified no other encounters exist for this prescription request: Yes Caregiver confirmed with patient/requestor that no other refills are due, in the near future, with this provider at this time: Yes The last office visit in the department: 05-29-24 Does the patient have a future office visit with this provider/department: No Requested Prescriptions Pending Prescriptions Disp Refills atenolol (TENORMIN) 25 mg tablet 90 tablet 3 Sig: Take 1 tablet by mouth once daily. Dania Michele June 14, 2024 10:09 AM documented in [facility] encounterPro[facility]10-25-2024 Telephone encounter Note * Telephone Encounter - Dania Jones - 06/14/2024 10:08 AM EDT Prescription Refill Information The patient has been identified by name and date of : Yes Caregiver verified no other encounters exist for this prescription request: Yes Caregiver confirmed with patient/requestor that no other refills are due, in the near future, with this provider at this time: Yes The last office visit in the department: 05-29-24 Does the patient have a future office visit with this provider/department: No Requested Prescriptions Pending Prescriptions Disp Refills atenolol (TENORMIN) 25 mg tablet 90 tablet 3 Sig: Take 1 tablet by mouth once daily. Dania Michele June 14, 2024 10:09 AM [facility] Work Phone: [phone] Emergency department Note* Cesia Sheth RN - 06/07/2024 8:02 PM EDT Patient left prior to receiving discharge papers Cesia Sheth RN 06/07/242002 [id number]* Cesia Sheth RN - 06/07/2024 8:02 PM EDT Patient left prior to receiving discharge papers Cesia Sheth RN 06/07/242002 * Yamila Sanchez RN - 06/07/2024 6:53 PM EDT Pt medicated per orders. Advised pt that she will be discharged after registration/med hold time. Pt trying to call a ride. Yamila Sanchez RN 06/07/241902 * Yamila Sanchez RN - 06/07/2024 6:23 PM EDT Pt to ED5 via [facility] with report of chronic back pain. Pt states she has had back pain since March. She has seen PCP and also sees pain management. She is on multiple pain meds including Prescott and Soma as well as gabapentin. She last took Prescott at 1630 but states it did nothing. She is rating her pain 10/10. Pt able to move all extremities. She reports hx of sciatica and states this feels similar. Pain is around left flank to spine. It went down her left leg yesterday but not today. Pt is A&Ox3, respirations even and unlabored, skin warm and dry, no distress noted. * Nieves Borja MD - 06/07/2024 6:16 PM EDT Images from the original note were not included. EMERGENCY DEPARTMENT ENCOUNTER Pt Name: Lesli Rosales Birthdate 1940 Date of evaluation: 06/07/2024 ED Provider: Nieves Borja MD CHIEF COMPLAINT Chief Complaint Patient presents with Back Pain HISTORY OF PRESENT ILLNESS (Location/Symptom, Timing/Onset, Context/Setting, Quality, Duration, Modifying Factors, Severity) Note limiting factors. I wore appropriate PPE for the entirety of this encounter. HPI Lesli Rosales is a 84 y.o. who presents to the emergency department with chief complaint of left-sided thoracic back pain and left-sided rib cage pain. This is acute on chronic pain been ongoing for few months since she had fractured ribs on the left side. She follows with pain management. She is on Prescott, Soma, gabapentin. She was previously on Toradol. She denies any injury or fall. She denies any fevers chills cough shortness of breath chest pain. She has had prior back surgeries denies hardware in the spine. Denies bowel or bladder incontinence retention saddle anesthesia. She had some low back pain as well as some sciatic type nerve pain rating down the back of the left leg yesterday but that is gone away. Denies any new numbness or weakness in the legs. No abdominal pain. She is on Xarelto. She has no known active cancer unintentional weight loss or significant nighttime pain. Nursing Notes were reviewed. Limitations to history: None Outside historians: None REVIEW OF SYSTEMS Review of Systems Constitutional: Negative for chills and fever. HENT: Negative for ear pain and sore throat. Eyes: Negative for pain and visual disturbance. Respiratory: Negative for cough and shortness of breath. Cardiovascular: Negative for chest pain and palpitations. Gastrointestinal: Negative for abdominal pain and vomiting. Genitourinary: Negative for dysuria and hematuria. Musculoskeletal: Positive for arthralgias, back pain and myalgias. Skin: Negative for color change and rash. Neurological: Negative for seizures and syncope. All other systems reviewed and are negative. Pertinent positives and negatives as per HPI. PAST MEDICAL HISTORY Past Medical History: Diagnosis Date Arthritis Atrial fibrillation (HCC) Chronic obstructive pulmonary disease (HCC) 08/24/2017 Chronic pain GERD (gastroesophageal reflux disease) Hypertension Osteoarthritis Pain management Psoriasis SURGICAL HISTORY Past Surgical History: Procedure Laterality Date ABDOMINAL SURGERY bladder bowel all dropped APPENDECTOMY BACK SURGERY BLADDER SUSPENSION BRONCHOSCOPY (HISTORICAL) 06/28/2017 Bronch ENB CHOLECYSTECTOMY COLONOSCOPY FINGER SURGERY HERNIA REPAIR 1959's umbilical SHOULDER SURGERY Right SPINE SURGERY 1985 TOTAL ABDOMINAL HYSTERECTOMY UPPER GASTROINTESTINAL ENDOSCOPY CURRENT MEDICATIONS Previous Medications ALBUTEROL 108 (90 BASE) MCG/ACT INHALER USE 2 INHALATIONS BY MOUTH 4 TIMES DAILY IF NEEDED APREMILAST (OTEZLA) 30 MG TABLET Take by mouth. Do not crush, chew, or split tablets. ATENOLOL (TENORMIN) 25 MG TABLET BUDESONIDE-FORMOTEROL (SYMBICORT) 160-4.5 MCG/ACT INHALER Inhale 2 puffs in the morning and 2 puffsin the evening. Rinse mouth with water after use to reduce aftertaste and incidence of candidiasis.Do not swallow.. BUDESONIDE-FORMOTEROL (SYMBICORT) 80-4.5 MCG/ACT INHALER Inhale 2 puffs 2 times daily. CARISOPRODOL (SOMA) 350 MG TABLET Take 350 mg by mouth Nightly as needed. FAMOTIDINE (PEPCID) 20 MG TABLET Take 20 mg by mouth in the morning. GABAPENTIN (NEURONTIN) 100 MG CAPSULE Take 100 mg by mouth in the morning and 100 mg at noon and 100 mg in the evening. HYDROCHLOROTHIAZIDE (MICROZIDE) 12.5 MG CAPSULE HYDROCODONE-ACETAMINOPHEN (NORCO) 5-325 MG TABLET every 6 hours. IPRATROPIUM (ATROVENT) 0.02 % NEBULIZER SOLUTION Take 2.5 mL (0.5 mg) by nebulization every 6 hoursas needed for wheezing or shortness of breath. LEVALBUTEROL (XOPENEX) 0.63 MG/3ML NEBULIZER SOLUTION Take 1 ampule by nebulization as needed for wheezing or shortness of breath. TIOTROPIUM (SPIRIVA) [address] 1 capsule (18 mcg) into inhaler and inhale in the morning. ALLERGIES Patient has no known allergies. FAMILY HISTORY Family History Adopted: Yes Problem Relation Name Age of Onset Other (12494) Mother SOCIAL HISTORY Social History Socioeconomic History Marital status: Tobacco Use Smoking status: Former Current packs/day: 0.00 Average packs/day: 1 pack/day for 17.0 years (17.0 ttl pk-yrs) Types: Cigarettes Start date: 05/29/1959 Quit date: 05/29/1976 Years since quittin.0 Smokeless tobacco: Never Vaping Use Vaping status: Never Used Substance and Sexual Activity Alcohol use: No Drug use: No SCREENINGS PHYSICAL EXAM ED Triage Vitals [06/07/24 1820] Temp Heart Rate Resp BP 36.4 C (97.5 F) 83 18 (!) 150/88 SpO2 Temp Source Heart Rate Source Patient Position 94 % Temporal -- -- BP Location FiO2 (%) -- -- Physical Exam Vitals and nursing note reviewed. Constitutional: General: She is not in acute distress. Appearance: She is well-developed. She is not ill-appearing or diaphoretic. HENT: Head: Normocephalic and atraumatic. Mouth/Throat: Mouth: Mucous membranes are moist. Pharynx: Oropharynx is clear. Eyes: Conjunctiva/sclera: Conjunctivae normal. Cardiovascular: Rate and Rhythm: Normal rate and regular rhythm. Pulses: Radial pulses are 2+ on the right side and 2+ on the left side. Dorsalis pedis pulses are 2+ on the right side and 2+ on the left side. Heart sounds: No murmur heard. Pulmonary: Effort: Pulmonary effort is normal. No respiratory distress. Breath sounds: Normal breath sounds. Abdominal: Palpations: Abdomen is soft. Tenderness: There is no abdominal tenderness. Musculoskeletal: General: No swelling. Cervical back: Normal range of motion and neck supple. No rigidity. Comments: Reproducible tenderness to the left rib cage no overlying skin changes or crepitus or swelling and tenderness continues along the left thoracic back and left paraspinal lumbar back musculature there is no midline bony thoracic lumbar tenderness Skin: General: Skin is warm and dry. Capillary Refill: Capillary refill takes less than 2 seconds. Neurological: Mental Status: She is alert. GCS: GCS eye subscore is 4. GCS verbal subscore is 5. GCS motor subscore is 6. Gait: Gait is intact. Comments: L1-L2 Inner thigh sensation intact L2 Adduct Thigh (cross legs) 5/5 L3 Extend Knee 5/5 bilaterally L4 Dorsiflex Ankle (Up) 5/5 bilaterally L5 Point Great Toe Up 5/5 bilaterally L2 L3-L4 Knee Reflex intaxt S1 Flex Knee 5/5 bilaterally S2 Plantarflex Toes 5/5 bilaterally S3, 4, 5 Groin, Perianal Sensation intact Psychiatric: Mood and Affect: Mood normal. DIAGNOSTIC RESULTS Procedures/EKG: EKG was reviewed by myself. [facility] RAD[facility]OLOGY (Per Emergency Physician): Interpretation per the Radiologist below, if available at the time of this note: No orders to display ED BEDSIDE ULTRASOUND: Performed by ED Physician - none LABS: Labs Reviewed - No data to display All other labs were within normal range or not returned as of this dictation. EMERGENCY DEPARTMENT COURSE and DIFFERENTIAL DIAGNOSIS/MDM: Vitals: Vitals: 06/07/24 1820 BP: (!) 150/88 Pulse: 83 Resp: 18 Temp: 36.4 C (97.5 F) TempSrc: Temporal SpO2: 94% Weight: 72.6 kg (160 lb) Height: 1.524 m (5') 84-year-old female here with left thoracic back pain and rib cage pain. She had rib fractures in March and has been dealing with this since then and has chronic back issues. Differential musculoskeletal spasm, strain, low suspicion for cauda equina epidural abscess or hematoma no fever although she is on Xarelto her CMT score is 1 due to that otherwise neuro intact no IV drug use not immunocompromised no recent spinal fracture procedure or ending indwelling catheters or known alcohol abuse or diabetes. Low suspicion for ruptured AAA there is no abdominal pain or pulsatile mass. No urinary symptoms to suggest obstructing ureteral stone. No cough fever or shortness of breath to suggest pneumonia. Her pain is very reproducible and seems musculoskeletal in nature. Considered an MRI of the thoracic lumbar spine however do not believe it is indicated. Will give her a dose of Toradol here and muscle relaxant. MEDICAL DECISION MAKING: I considered, but did not perform, additional testing such MRI Spine or Brain, as well as admissionor transfer to a higher level of care. I utilized an evidence-based risk rating tool (CMT) along with my training and experience to weigh the risk of discharge against the risks of further testing, imaging, or hospitalization. At this time, I estimate the risks of additional testing, imaging, or hospitalization (in the case of discharge) to be equal to or greater than the risk of discharge. Given the symptoms and findings present at this time, the chance of SEA or SCC is so remote that additional testing or imaging is more likely toharm the patient than diagnose SEA. [id number] SHARED DECISION MAKING: I discussed my risk assessment with the patient. The patient understands and consents to the risk of disposition/plan, as well as the risk of uncertainty in estimating outcomes. [id number] Diagnoses as of 06/07/241852 Chronic left-sided thoracic back pain Medications ketorolac (Toradol) injection 30 mg (30 mg IntraMUSCular Given 06/07/241848) cyclobenzaprine (Flexeril) tablet 5 mg (5 mg Oral Given 06/07/241848) REVAL: Patient with slight improvement of her pain. She is able to ambulate. Her vitals are stable. Recommend close follow-up outpatient. Return precautions provided. CRITICAL CARE TIME None CONSULTS: None PROCEDURES: Unless otherwise noted below, none Procedures Patients symptoms are consistent with sepsis, severe sepsis, or septic shock (If yes use .sepsiscoremeasure): no FINAL IMPRESSION 1. Chronic left-sided thoracic back pain DISPOSITION Discharge 06/07/2024 06:35:36 PM PATIENT REFERRED TO: Giselle Elizondo [address] [place] [address] [address] [place] [phone] Schedule an appointment as soon as possible for a visit As needed DISCHARGE MEDICATIONS: New Prescriptions No medications on file (Comment: Please note this report has been produced using speech recognition software and may contain errors related to that system including errors in grammar, punctuation, and spelling, as well as words and phrases that may be inappropriate. If there are any questions or concerns please feel freeto contact the dictating provider for clarification.) Nieves Borja MD (electronically signed) Emergency Medicine Provider Nieves Broja MD 06/07/241853 documented in this [place] [id number] Emergency department Note* Yamila Sanchez RN - 06/07/2024 6:53 PM EDT Pt medicated per orders. Advised pt that she will be discharged after registration/med hold time. Pt trying to call a ride. Yamila Sanchez RN 06/07/241902 [id number] Discharge [facility]* Discharge Instructions* Nieves Borja MD - 06/07/2024 6:47 PM EDT Please follow up with your pain management doctor or PCP for further evaluation. * Attachments The following attachments cannot be sent through Care Everywhere. * Upper Back Pain Discharge Instructions (Finnish) documented in this [facility]10-18-2024 Emergency department Triage note* Yamila Sanchez RN - 06/07/2024 6:23 PM EDT [facility] with report of chronic back pain. Pt states she has had back pain since March. She has seen PCP and also sees pain management. She is on multiple pain meds including Prescott and Soma as well as gabapentin. She last took Prescott at 1630 but states it did nothing. She is rating her pain 10/10. Pt able to move all extremities. She reports hx of sciatica and states this feels similar. Pain is around left flank to spine. It went down her left leg yesterday but not today. Pt is A&Ox3, respirations even and unlabored, skin warm and dry, no distress noted. [place] [id number] Physician Emergency department Note* Nieves Borja MD - 06/07/2024 6:16 PM EDT Images from the original note were not included. EMERGENCY DEPARTMENT ENCOUNTER Pt Name: Lesli Rosales Birthdate 1940 Date of evaluation: 06/07/2024 ED Provider: Nieves Borja MD CHIEF COMPLAINT Chief Complaint Patient presents with Back Pain HISTORY OF PRESENT ILLNESS (Location/Symptom, Timing/Onset, Context/Setting, Quality, Duration, Modifying Factors, Severity) Note limiting factors. I wore appropriate PPE for the entirety of this encounter. HPI Lesli Rosales is a 84 y.o. who presents to the emergency department with chief complaint of left-sided thoracic back pain and left-sided rib cage pain. This is acute on chronic pain been ongoing for few months since she had fractured ribs on the left side. She follows with pain management. She is on Prescott, Soma, gabapentin. She was previously on Toradol. She denies any injury or fall. She denies any fevers chills cough shortness of breath chest pain. She has had prior back surgeries denies hardware in the spine. Denies bowel or bladder incontinence retention saddle anesthesia. She had some low back pain as well as some sciatic type nerve pain rating down the back of the left leg yesterday but that is gone away. Denies any new numbness or weakness in the legs. No abdominal pain. She is on Xarelto. She has no known active cancer unintentional weight loss or significant nighttime pain. Nursing Notes were reviewed. Limitations to history: None Outside historians: None REVIEW OF SYSTEMS Review of Systems Constitutional: Negative for chills and fever. HENT: Negative for ear pain and sore throat. Eyes: Negative for pain and visual disturbance. Respiratory: Negative for cough and shortness of breath. Cardiovascular: Negative for chest pain and palpitations. Gastrointestinal: Negative for abdominal pain and vomiting. Genitourinary: Negative for dysuria and hematuria. Musculoskeletal: Positive for arthralgias, back pain and myalgias. Skin: Negative for color change and rash. Neurological: Negative for seizures and syncope. All other systems reviewed and are negative. Pertinent positives and negatives as per HPI. PAST MEDICAL HISTORY Past Medical History: Diagnosis Date Arthritis Atrial fibrillation (HCC) Chronic obstructive pulmonary disease (HCC) 08/24/2017 Chronic pain GERD (gastroesophageal reflux disease) Hypertension Osteoarthritis Pain management Psoriasis SURGICAL HISTORY Past Surgical History: Procedure Laterality Date ABDOMINAL SURGERY bladder bowel all dropped APPENDECTOMY BACK SURGERY BLADDER SUSPENSION BRONCHOSCOPY (HISTORICAL) 06/28/2017 Bronch ENB CHOLECYSTECTOMY COLONOSCOPY FINGER SURGERY HERNIA REPAIR 1959's umbilical SHOULDER SURGERY Right SPINE SURGERY 1985 TOTAL ABDOMINAL HYSTERECTOMY UPPER GASTROINTESTINAL ENDOSCOPY CURRENT MEDICATIONS Previous Medications ALBUTEROL 108 (90 BASE) MCG/ACT INHALER USE 2 INHALATIONS BY MOUTH 4 TIMES DAILY IF NEEDED APREMILAST (OTEZLA) 30 MG TABLET Take by mouth. Do not crush, chew, or split tablets. ATENOLOL (TENORMIN) 25 MG TABLET BUDESONIDE-FORMOTEROL (SYMBICORT) 160-4.5 MCG/ACT INHALER Inhale 2 puffs in the morning and 2 puffsin the evening. Rinse mouth with water after use to reduce aftertaste and incidence of candidiasis.Do not swallow.. BUDESONIDE-FORMOTEROL (SYMBICORT) 80-4.5 MCG/ACT INHALER Inhale 2 puffs 2 times daily. CARISOPRODOL (SOMA) 350 MG TABLET Take 350 mg by mouth Nightly as needed. FAMOTIDINE (PEPCID) 20 MG TABLET Take 20 mg by mouth in the morning. GABAPENTIN (NEURONTIN) 100 MG CAPSULE Take 100 mg by mouth in the morning and 100 mg at noon and 100 mg in the evening. HYDROCHLOROTHIAZIDE (MICROZIDE) 12.5 MG CAPSULE HYDROCODONE-ACETAMINOPHEN (NORCO) 5-325 MG TABLET every 6 hours. IPRATROPIUM (ATROVENT) 0.02 % NEBULIZER SOLUTION Take 2.5 mL (0.5 mg) by nebulization every 6 hoursas needed for wheezing or shortness of breath. LEVALBUTEROL (XOPENEX) 0.63 MG/3ML NEBULIZER SOLUTION Take 1 ampule by nebulization as needed for wheezing or shortness of breath. TIOTROPIUM (SPIRIVA) [address] 1 capsule (18 mcg) into inhaler and inhale in the morning. ALLERGIES Patient has no known allergies. FAMILY HISTORY Family History Adopted: Yes Problem Relation Name Age of Onset Other (22749) Mother SOCIAL HISTORY Social History Socioeconomic History Marital status: Tobacco Use Smoking status: Former Current packs/day: 0.00 Average packs/day: 1 pack/day for 17.0 years (17.0 ttl pk-yrs) Types: Cigarettes Start date: 05/29/1959 Quit date: 05/29/1976 Years since quittin.0 Smokeless tobacco: Never Vaping Use Vaping status: Never Used Substance and Sexual Activity Alcohol use: No Drug use: No SCREENINGS PHYSICAL EXAM ED Triage Vitals [06/07/24 1820] Temp Heart Rate Resp BP 36.4 C (97.5 F) 83 18 (!) 150/88 SpO2 Temp Source Heart Rate Source Patient Position 94 % Temporal -- -- BP Location FiO2 (%) -- -- Physical Exam Vitals and nursing note reviewed. Constitutional: General: She is not in acute distress. Appearance: She is well-developed. She is not ill-appearing or diaphoretic. HENT: Head: Normocephalic and atraumatic. Mouth/Throat: Mouth: Mucous membranes are moist. Pharynx: Oropharynx is clear. Eyes: Conjunctiva/sclera: Conjunctivae normal. Cardiovascular: Rate and Rhythm: Normal rate and regular rhythm. Pulses: Radial pulses are 2+ on the right side and 2+ on the left side. Dorsalis pedis pulses are 2+ on the right side and 2+ on the left side. Heart sounds: No murmur heard. Pulmonary: Effort: Pulmonary effort is normal. No respiratory distress. Breath sounds: Normal breath sounds. Abdominal: Palpations: Abdomen is soft. Tenderness: There is no abdominal tenderness. Musculoskeletal: General: No swelling. Cervical back: Normal range of motion and neck supple. No rigidity. Comments: Reproducible tenderness to the left rib cage no overlying skin changes or crepitus or swelling and tenderness continues along the left thoracic back and left paraspinal lumbar back musculature there is no midline bony thoracic lumbar tenderness Skin: General: Skin is warm and dry. Capillary Refill: Capillary refill takes less than 2 seconds. Neurological: Mental Status: She is alert. GCS: GCS eye subscore is 4. GCS verbal subscore is 5. GCS motor subscore is 6. Gait: Gait is intact. Comments: L1-L2 Inner thigh sensation intact L2 Adduct Thigh (cross legs) 5/5 L3 Extend Knee 5/5 bilaterally L4 Dorsiflex Ankle (Up) 5/5 bilaterally L5 Point Great Toe Up 5/5 bilaterally L2 L3-L4 Knee Reflex intaxt S1 Flex Knee 5/5 bilaterally S2 Plantarflex Toes 5/5 bilaterally S3, 4, 5 Groin, Perianal Sensation intact Psychiatric: Mood and Affect: Mood normal. DIAGNOSTIC RESULTS Procedures/EKG: EKG was reviewed by myself. Physician EKG interpretation can be found in [facility] RADIOLOGY (Per Emergency Physician): Interpretation per the Radiologist below, if available at the time of this note: No orders to display ED BEDSIDE ULTRASOUND: Performed by ED Physician - none LABS: Labs Reviewed - No data to display All other labs were within normal range or not returned as of this dictation. EMERGENCY DEPARTMENT COURSE and DIFFERENTIAL DIAGNOSIS/MDM: Vitals: Vitals: 06/07/24 1820 BP: (!) 150/88 Pulse: 83 Resp: 18 Temp: 36.4 C (97.5 F) TempSrc: Temporal SpO2: 94% Weight: 72.6 kg (160 lb) Height: 1.524 m (5') 84-year-old female here with left thoracic back pain and rib cage pain. She had rib fractures in March and has been dealing with this since then and has chronic back issues. Differential musculoskeletal spasm, strain, low suspicion for cauda equina epidural abscess or hematoma no fever although she is on Xarelto her CMT score is 1 due to that otherwise neuro intact no IV drug use not immunocompromised no recent spinal fracture procedure or ending indwelling catheters or known alcohol abuse or diabetes. Low suspicion for ruptured AAA there is no abdominal pain or pulsatile mass. No urinary symptoms to suggest obstructing ureteral stone. No cough fever or shortness of breath to suggest pneumonia. Her pain is very reproducible and seems musculoskeletal in nature. Considered an MRI of the thoracic lumbar spine however do not believe it is indicated. Will give her a dose of Toradol here and muscle relaxant. MEDICAL DECISION MAKING: I considered, but did not perform, additional testing such MRI Spine or Brain, as well as admissionor transfer to a higher level of care. I utilized an evidence-based risk rating tool (CMT) along with my training and experience to weigh the risk of discharge against the risks of further testing, imaging, or hospitalization. At this time, I estimate the risks of additional testing, imaging, or hospitalization (in the case of discharge) to be equal to or greater than the risk of discharge. Given the symptoms and findings present at this time, the chance of SEA or SCC is so remote that additional testing or imaging is more likely toharm the patient than diagnose SEA. [id number] SHARED DECISION MAKING: I discussed my risk assessment with the patient. The patient understands and consents to the risk of disposition/plan, as well as the risk of uncertainty in estimating outcomes. [id number] Diagnoses as of 06/07/241852 Chronic left-sided thoracic back pain Medications ketorolac (Toradol) injection 30 mg (30 mg IntraMUSCular Given 06/07/241848) cyclobenzaprine (Flexeril) tablet 5 mg (5 mg Oral Given 06/07/241848) REVAL: Patient with slight improvement of her pain. She is able to ambulate. Her vitals are stable. Recommend close follow-up outpatient. Return precautions provided. CRITICAL CARE TIME None CONSULTS: None PROCEDURES: Unless otherwise noted below, none Procedures Patients symptoms are consistent with sepsis, severe sepsis, or septic shock (If yes use .sepsiscoremeasure): no FINAL IMPRESSION 1. Chronic left-sided thoracic back pain DISPOSITION Discharge 06/07/2024 06:35:36 PM PATIENT REFERRED TO: Giselle Elizondo [address] [place] [address] [address] [place] [id number] Schedule an appointment as soon as possible for a visit As needed DISCHARGE MEDICATIONS: New Prescriptions No medications on file (Comment: Please note this report has been produced using speech recognition software and may contain errors related to that system including errors in grammar, punctuation, and spelling, as well as words and phrases that may be inappropriate. If there are any questions or concerns please feel freeto contact the dictating provider for clarification.) Nieves Borja MD (electronically signed) Emergency Medicine Provider Nieves Borja MD 06/07/241853 [id number] encounter Note* Telephone Encounter - Terrie Hernandez RN - 06/05/2024 3:51 PM EDT Called patient to notify Rx was sent and provider's message about minimizing use. Patient voiced understanding. [facility]10-16-2024 Miscellaneous Notes* Telephone Encounter - Terrie Hernandez RN - 06/05/2024 3:51 PM EDT Called patient to notify Rx was sent and provider's message about minimizing use. Patient voiced understanding. * Telephone Encounter - Giselle Elizondo MD - 06/05/2024 10:34 AM EDT The following approved medication requests have been transmitted electronically. Requested Prescriptions Signed Prescriptions Disp Refills oxyCODONE-acetaminophen (PERCOCET) 5-325 mg tablet 28 tablet 0 Sig: Take 1 tablet by mouth every 4 hours as needed for pain for up to 7 days. Minimize use of this. Try to make it last until she follows up with pain mgt. Giselle Elizondo MD * Telephone Encounter - Keerthi Hanson RN - 06/04/2024 2:25 PM EDT Discussed message with patient. States pain doc just wants to do injections. States she can't stand the pain anymore. Offered to make OV with PCP-she says she was just in here to see him. States PCP will just tell her to see Pain- but she says Pain will not help. She is upset, frustrated. She says her f/u with Pain is in 3 weeks. Asking for help in time being. Keerthi Hanson RN * Telephone Encounter - Giselle Elizondo MD - 06/04/2024 1:23 PM EDT Rib x ray shows fractures as before, described as age indeterminate. No sign of a thoracic compression fracture . No new insight on source of pain from these images. Follow up with pain mgt, return to office if no relief in a week. Giselle Elizondo MD * Telephone Encounter - Keerthi Hanson RN - 06/04/2024 1:06 PM EDT PCP: please review results of 05/29 xray and advise. Keerthi Hanson RN * Telephone Encounter - Aurea Loya - 06/04/2024 12:52 PM EDT Patient is calling stating she is still in a lot of pain and that she did not receive a call back from Dr. Elizondo about her xrays last week. She is asking for a call back today as she stated she can hardly stand the pain. * Telephone Encounter - Terrie Hernandez RN - 05/31/2024 1:35 PM EDT Called patient. She said Dr. Hall put her on Percocet, she has lidocaine patches, and is taking gabapentin. She said she is not taking the tramadol anymore, because of her severe pain that was replaced with Prescott,then with Percocet. Minimal relief with icing. She said her pain has been 10/10 since March, in the L ribs wrapping around to her back. Same location, same intensity as at office visit, without known new cause or injury. Patient states she does not want any new orders, just anxious to hear about the results from her x-ray. Advised patient they may not be available until Monday, but will let PCP know that she called. Reason for Disposition Nursing judgment or information in reference Protocols used: No Guideline [id number] * Telephone Encounter - Janneth Deras - 05/31/2024 12:04 PM EDT Lesli is calling Giselle Elizondo MD today to request a call to advise the results of x-rays doneon 05/29/2024 Advised patient these are still in process and provider will call with recommendations when resultsare in Patient is stating she is in a lot of pain 05/30 and may need something to help with pain when those results are in please Patient has been identified by name and birthdate. Duration of symptoms: since March Person calling: self Call patient at: at home [phone] (home) [phone] (cell)- patient , prefers home phone Was an appointment scheduled: Ladan Matute [facility] Telephone encounter Note * Telephone Encounter - Giselle Elizondo MD - 06/05/2024 10:34 AM EDT The following approved medication requests have been transmitted electronically. Requested Prescriptions Signed Prescriptions Disp Refills oxyCODONE-acetaminophen (PERCOCET) 5-325 mg tablet 28 tablet 0 Sig: Take 1 tablet by mouth every 4 hours as needed for pain for up to 7 days. Minimize use of this. Try to make it last until she follows up with pain mgt. Giselle Elizondo MD [facility]10-15-2024 Telephone encounter Note* Telephone Encounter - Giselle Elizondo MD - 06/04/2024 3:21 PM EDT The following approved medication requests have been transmitted electronically. Requested Prescriptions Signed Prescriptions Disp Refills carisoprodol (SOMA) 350 mg tablet 30 tablet 0 Sig: Take 1 tablet by mouth at bedtime as needed for up to 30 days. Authorizing Provider: GISELLE ELIZONDO MD [facility]10-15-2024 Miscellaneous Notes* Telephone Encounter - Giselle Elizondo MD - 06/04/2024 3:21 PM EDT The following approved medication requests have been transmitted electronically. Requested Prescriptions Signed Prescriptions Disp Refills carisoprodol (SOMA) 350 mg tablet 30 tablet 0 Sig: Take 1 tablet by mouth at bedtime as needed for up to 30 days. Authorizing Provider: GISELLE ELIZONDO MD * Telephone Encounter - Maddie Costa LPN - 06/04/2024 1:50 PM EDT Pended, please advise. * Telephone Encounter - Aurea Loya - 06/04/2024 12:46 PM EDT Patient calling for a refill of : carisoprodol (SOMA) 350 mg tablet (not in current refill list) Please send refill to her [facility] documented [facility]Pro[facility]10-[facility] Telephone encounter Note * Telephone Encounter - Keerthi Hanson RN - 06/04/2024 2:25 PM EDT Discussed message with patient. States pain doc just wants to do injections. States she can't stand the pain anymore. Offered to make OV with PCP-she says she was just in here to see him. States PCP will just tell her to see Pain- but she says Pain will not help. She is upset, frustrated. She says her f/u with Pain is in 3 weeks. Asking for help in time being. Keerthi Hanson RN [facility]10-15-2024 Telephone encounter Note* Telephone Encounter - Maddie Costa LPN - 06/04/2024 1:50 PM EDT Pended, please advise. [facility]10-15-2024 Telephone encounter Note* Telephone Encounter - Giselle Elizondo MD - 06/04/2024 1:23 PM EDT Rib x ray shows fractures as before, described as age indeterminate. No sign of a thoracic compression fracture . No new insight on source of pain from these images. Follow up with pain mgt, return to office if no relief in a week. Giselle Elizondo MD [facility]10-15-2024 Telephone encounter Note* Telephone Encounter - Keerthi Hanson RN - 06/04/2024 1:06 PM EDT PCP: please review results of 05/29 xray and advise. Keerthi Hanson RN [facility]10-15-2024 Telephone encounter Note* Telephone Encounter - Aurea Loya - 06/04/2024 12:52 PM EDT Patient is calling stating she is still in a lot of pain and that she did not receive a call back from Dr. Elizondo about her xrays last week. She is asking for a call back today as she stated she can hardly stand the pain. [facility]10-15-2024 Telephone encounter Note* Telephone Encounter - Aurea Loya - 06/04/2024 12:46 PM EDT Patient calling for a refill of : carisoprodol (SOMA) 350 mg tablet (not in current refill list) Please send refill to her [facility]10-11-2024 Telephone encounter Note* Telephone Encounter - Terrie Hernandez RN - 05/31/2024 1:35 PM EDT Called patient. She said Dr. Hall put her on Percocet, she has lidocaine patches, and is taking gabapentin. She said she is not taking the tramadol anymore, because of her severe pain that was replaced with Prescott,then with Percocet. Minimal relief with icing. She said her pain has been 10/10 since March, in the L ribs wrapping around to her back. Same location, same intensity as at office visit, without known new cause or injury. Patient states she does not want any new orders, just anxious to hear about the results from her x-ray. Advised patient they may not be available until Monday, but will let PCP know that she called. Reason for Disposition Nursing judgment or information in reference Protocols used: No Guideline [id number] [facility]10-11-2024 Telephone encounter Note* Telephone Encounter - Janneth Deras - 05/31/2024 12:04 PM EDT Lesli is calling Giselle Elizondo MD today to request a call to advise the results of x-rays doneon 05/29/2024 Advised patient these are still in process and provider will call with recommendations when resultsare in Patient is stating she is in a lot of pain 10/10 and may need something to help with pain when those results are in please Patient has been identified by name and birthdate. Duration of symptoms: since March Person calling: self Call patient at: at home [phone] (home) [phone] (cell)- patient , prefers home phone Was an appointment scheduled: No Janneth Matute [facility]10-09-2024 History of Present illness Narrative* Lorena Tucker RT(R) - 05/29/2024 4:00 PM EDT Radiology Service Progress Note PATIENT NAME: Lesli Rosales DATE OF SERVICE: May 29, 2024 TIME: 4:31 PM PATIENT IDENTITY VERIFICATION COMPLETED USING TWO (2) IDENTIFIERS: Name and Date of confirmedby patient verbally. FALL SCREENING: Has the patient had 2 falls in the last year or 1 fall with injury or currently using an Ambulatory Assistive Device (Walker, Cane, Wheelchair, Crutches, etc.)? No PATIENT GENDER DATA: Female. status: : No status: NO. PATIENT RELEVANT IMPLANT DATA REVIEWED: Not Applicable PATIENT PRESENTS WITH AN IMPLANTABLE OR ATTACHED JUNIOR COPYWRITER: No RADIOLOGY DEPARTMENT: General X-ray: Exam(s) Completed: Rib X-Ray: Left Spine X-Ray(s): Thoracic PERIPHERAL IV DATA: Not applicable SIGNED BY: RT Isadora(Martínez) May 29, 2024 4:31 PM documented in this encounterPro[facility]10-09-2024 NoteHNO ID: [id number] Author: LORENA TUCKER RT(R) Service: ? Author Type: Technologist Type: Progress Notes Filed: 05/29/2024 16:32 Note Text: Radiology Service Progress Note PATIENT NAME: Lesli Rosales DATE OF SERVICE: May 29, 2024 TIME: 4:31 PM PATIENT IDENTITY VERIFICATION COMPLETED USING TWO (2) IDENTIFIERS: Name and Date of confirmed by patient verbally. FALL SCREENING: Has the patient had 2 falls in the last year or 1 fall with injury or currently using an Ambulatory Assistive Device (Walker, Cane, Wheelchair, Crutches, etc.)? No PATIENT GENDER DATA: Female. status: : No status: NO. PATIENT RELEVANT IMPLANT DATA REVIEWED: Not Applicable PATIENT PRESENTS WITH AN IMPLANTABLE OR ATTACHED JUNIOR COPYWRITER: No RADIOLOGY DEPARTMENT: General X-ray: Exam(s) Completed: Rib X-Ray: Left Spine X-Ray(s): Thoracic PERIPHERAL IV DATA: Not applicable SIGNED BY: RT Isadora(Martínez) May 29, 2024 4:31 [facility]10-09-2024 NoteHNO ID: [id number] Author: GISELLE ELIZONDO MD Service: ? Author Type: Physician Type: Progress Notes Filed: 05/29/2024 14:06 Note Text: CHIEF COMPLAINT Patient presents with: rib pain HISTORY OF PRESENT ILLNESS Lesli Rosales is a 84 year old female who presents here today for rib pain. I last saw this patient on 01/17/2024. Rib Pain - In March she was seen by pain management, was told that she had to lay on her stomach for injection into her shoulder - While turning to lay on stomach, she felt a sharp pain in her chest/rib L side - States that she called the answering service a few days later because the pain persisted. Imaging orders were placed - Imaging showed rib fractures - Had a thoracic spine nerve block on 05/16 without benefit - Went to the ER on 05/20, left without being seen. - Continues to endorses persistent pain the lower ribs and left sided back pain - Has difficulty breathing and trying to get out of bed Health Maintenance Due for Influenza Vaccine (1) Due for Covid-19 Vaccine ( season) Due for Pneumococcal Vaccine: 65+ (1 of 2- PCV) Due for DTaP, Tdap, Td Vaccine (1- Tdap) Due for Shingrix Vaccine (1 of 2) Due for RSV Vaccine (1-1 dose 75+ series) Due for Advance Directive Discussion Labs reviewed. Past medical history, appointments, medications, allergies reviewed. REVIEW OF SYSTEMS General: Feels well, no weight changes, fevers or chills. HEENT: No sinus congestion, earache, sore throat. Cardiac: No chest pain, palpitations Resp: No cough, wheeze, shortness of breath GI: No reflux symptoms, food intolerance, bowel changes. : No urinary frequency, dysuria. MS: +Rib pain, lower left side +left sided thoracic back pain PAST MEDICAL HISTORY PAST MEDICAL HISTORY Diagnosis Date A-fib (HCC) Chronic obstructive pulmonary disease (COPD) ([facility]) Hypertension Lung nodules Psoriasis Psoriatic arthritis ([facility]) PHYSICAL EXAMINATION BP 157/85 Pulse 62 Ht 154 cm (5' 0.63) Wt 75 kg (165 lb 5.5 oz) SpO2 93% BMI 31.62 kg/m? General: Alert, well developed, well nourished, no distress, pleasant and cooperative. Obese. Heart: Regular rate and rhythm. Normal S1 and S2. No murmurs, rubs, or gallops. Lungs: Clear to auscultation bilaterally. No respiratory distress. No wheezes, rales, or rhonchi. Pain on palpation of lower ribs, L side, posterolateral aspect of lower thorax, she has some pain on aplpaiton of upper chest wall, not as sharp , no crepitance. No bruising or rash. Abdomen: Soft, non-tender, no distention. Extremities: Feet/ankles without edema, posterior tibial pulses full and symmetrical. 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 Normal mediastinum and jan. Normal visualized pulmonary arteries. There is mild atherosclerotic calcification of the aortic arch. Normal visualized thoracic spine. Normal visualized clavicles and shoulders. There is no demonstrated abnormality of the visualized soft tissue structures of the upper abdomen. Assessment/Plan (S22.42XS) Closed fracture of multiple ribs of left side, sequela (primary encounter diagnosis) (M54.6, G89.29) Chronic left-sided thoracic back pain Comment: couple months pain, worsening some time after presumed injury Given location of pain, concerns for compression fracture, will check xray to confirm. Will obtain repeat xray of ribs Plan: XR THORACIC GENERAL 3V AP/LAT/SWIMMERS, XR RIBS 2V AP/OBL LEFT Requested Prescriptions No prescriptions requested or ordered in this encounter RTO: pending results of repeat xray. She will be seeing pain mgt today Scribe Attestation: By signing my name below, Evan Jeter, attest that this documentation has been prepared under the direction and in the presence of Harpreet Elizondo M.D. Electronically Signed: Carlos Austin. May 29, 2024 10:55 AM Provider Attestation: Giselle Jeter MD, personally performed the services described in this documentation. All medical record entries made by the scribe were at my direction and in my telephonic presence. I have reviewed the chart and discharge instructions (if applicable), and agree that the record reflects my personal performance and is accurate and complete. Electronically Signed: Giselle Elizondo MD May 29, 2024 1:57 [facility]10-09-2024 History of Present illness Narrative* Giselle Elizondo MD - 05/29/2024 10:55 AM EDT CHIEF COMPLAINT Patient presents with: rib pain HISTORY OF PRESENT ILLNESS Lesli Rosales is a 84 year old female who presents here today for rib pain. I last saw this patient on 01/17/2024. Rib Pain - In March she was seen by pain management, was told that she had to lay on her stomach for injection into her shoulder - While turning to lay on stomach, she felt a sharp pain in her chest/rib L side - States that she called the answering service a few days later because the pain persisted. Imagingorders were placed - Imaging showed rib fractures - Had a thoracic spine nerve block on 05/16 without benefit - Went to the ER on 05/20, left without being seen. - Continues to endorses persistent pain the lower ribs and left sided back pain - Has difficulty breathing and trying to get out of bed Health Maintenance Due for Influenza Vaccine (1) Due for Covid-19 Vaccine ( season) Due for Pneumococcal Vaccine: 65+ (1 of 2- PCV) Due for DTaP, Tdap, Td Vaccine (1- Tdap) Due for Shingrix Vaccine (1 of 2) Due for RSV Vaccine (1-1 dose 75+ series) Due for Advance Directive Discussion Labs reviewed. Past medical history, appointments, medications, allergies reviewed. REVIEW OF SYSTEMS General: Feels well, no weight changes, fevers or chills. HEENT: No sinus congestion, earache, sore throat. Cardiac: No chest pain, palpitations Resp: No cough, wheeze, shortness of breath GI: No reflux symptoms, food intolerance, bowel changes. : No urinary frequency, dysuria. MS: +Rib pain, lower left side +left sided thoracic back pain PAST MEDICAL HISTORY PAST MEDICAL HISTORY Diagnosis Date A-fib (HCC) Chronic obstructive pulmonary disease (COPD) (HCC) Hypertension Lung nodules Psoriasis Psoriatic arthritis (HCC) PHYSICAL EXAMINATION BP 157/85 Pulse 62 Ht 154 cm (5' 0.63) Wt 75 kg (165 lb 5.5 oz) SpO2 93% BMI 31.62 kg/m General: Alert, well developed, well nourished, no distress, pleasant and cooperative. Obese. Heart: Regular rate and rhythm. Normal S1 and S2. No murmurs, rubs, or gallops. Lungs: Clear to auscultation bilaterally. No respiratory distress. No wheezes, rales, or rhonchi. Pain on palpation of lower ribs, L side, posterolateral aspect of lower thorax, she has some pain on aplpaiton of upper chest wall, not as sharp , no crepitance. No bruising or rash. Abdomen: Soft, non-tender, no distention. Extremities: Feet/ankles without edema, posterior tibial pulses full and symmetrical. 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 Normal mediastinum and jan. Normal visualized pulmonary arteries. There is mildatherosclerotic calcification of the aortic arch. Normal visualized thoracic spine. Normal visualized clavicles and shoulders. There is no demonstrated abnormality of the visualized soft tissue structures of the upper abdomen. Assessment/Plan (S22.42XS) Closed fracture of multiple ribs of left side, sequela (primary encounter diagnosis) (M54.6, G89.29) Chronic left-sided thoracic back pain Comment: couple months pain, worsening some time after presumed injury Given location of pain, concerns for compression fracture, will check xray to confirm. Will obtain repeat xray of ribs Plan: XR THORACIC GENERAL 3V AP/LAT/SWIMMERS, XR RIBS 2V AP/OBL LEFT Requested Prescriptions No prescriptions requested or ordered in this encounter RTO: pending results of repeat xray. She will be seeing pain mgt today Scribe Attestation: By signing my name below, Evan Jeter, attest that this documentation has been prepared under the direction and in the presence of Harpreet Elizondo M.D. Electronically Signed: Carlos Austin. May 29, 2024 10:55 AM Provider Attestation: I, Giselle Elizondo MD, personally performed the services described in this documentation. All medical record entries made by the scribe were at my direction and in my telephonic presence. I have reviewed the chart and discharge instructions (if applicable), and agree that the record reflects my personal performance and is accurate and complete. Electronically Signed: Giselle Elizondo MD May 1:57 PM [facility]24 Telephone encounter Note * Telephone Encounter - Fernanda Coleman RN - 05/28/2024 1:47 PM EDT Pt left VM on RN line stating she had a previous chest injury that is not improving. Pt had pain injections in March and while moving onto the exam table/flipping over, injured her chest At that time pt had xrays completed and 3 suspected rib fracture Nerve block completed at that time but did not help Pain with movement When going to lay flat - stabbing/gripping pain Not worse but not better Denies SOB at rest, difficulty catching breath with movement Takes 3 norco daily - not helping OV scheduled tomorrow Reason for Disposition [1] MODERATE pain (e.g., interferes with normal activities) AND [2] high-risk adult (e.g., age >60 years, osteoporosis, chronic steroid use) Protocols used: Chest [id number] [facility]10-08-2024 Miscellaneous Notes* Telephone Encounter - Fernanda Coleman RN - 05/28/2024 1:47 PM EDT Pt left VM on RN line stating she had a previous chest injury that is not improving. Pt had pain injections in March and while moving onto the exam table/flipping over, injured her chest At that time pt had xrays completed and 3 suspected rib fracture Nerve block completed at that time but did not help Pain with movement When going to lay flat - stabbing/gripping pain Not worse but not better Denies SOB at rest, difficulty catching breath with movement Takes 3 norco daily - not helping OV scheduled tomorrow Reason for Disposition [1] MODERATE pain (e.g., interferes with normal activities) AND [2] high-risk adult (e.g., age >60 years, osteoporosis, chronic steroid use) Protocols used: Chest [id number] documented in this encounterProtest[facility] Hospital09-30-2024 Telephone encounter Note * Telephone Encounter - Susie Cordon - 05/20/2024 10:59 AM EDT Prescription Refill Information The patient has been identified by name and date of : Yes Caregiver verified no other encounters exist for this prescription request: Yes Caregiver confirmed with patient/requestor that no other refills are due, in the near future, with this provider at this time: Yes The last office visit in the department: 01-17-24 Does the patient have a future office visit with this provider/department: No Requested Prescriptions Pending Prescriptions Disp Refills rivaroxaban (XARELTO) 20 mg tablet 90 tablet 3 Sig: Take 1 tablet by mouth daily with dinner. Susie Michele May 20, 2024 11:00 AM [facility]09-30-2024 Miscellaneous Notes* Telephone Encounter - Susie Cordon - 05/20/2024 10:59 AM EDT Prescription Refill Information The patient has been identified by name and date of : Yes Caregiver verified no other encounters exist for this prescription request: Yes Caregiver confirmed with patient/requestor that no other refills are due, in the near future, with this provider at this time: Yes The last office visit in the department: 01-17-24 Does the patient have a future office visit with this provider/department: No Requested Prescriptions Pending Prescriptions Disp Refills rivaroxaban (XARELTO) 20 mg tablet 90 tablet 3 Sig: Take 1 tablet by mouth daily with dinner. Susie Michele May 20, 2024 11:00 AM documented in this encounterProtestant Hospital09-18-2024 Note* Addendum Note - Ana Mace APRN.CNP - 05/08/2024 2:50 PM EDTAddended by: ANA MACE on: 05/08/2024 02:50 PM Modules accepted: Orders [facility]09-18-2024 Miscellaneous Notes* Addendum Note - Ana Mace APRN.CNP - 05/08/2024 2:50 PM EDTAddended by: ANA MACE on: 05/08/2024 02:50 PM Modules accepted: Orders * Addendum Note - Maddie Costa LPN - 05/08/2024 2:34 PM EDTAddended by: MADDIE COSTA on: 05/08/2024 02:34 PM Modules accepted: Orders * Telephone Encounter - Maddie Costa LPN - 05/08/2024 2:01 PM EDT Response via covermymeds: LESLI ROSALES ([place]: [id number]) [place] Rx #: [id number] Need Help? Call us at Outcome N/A today by [employer] 2017 NCPDP This medication or product is on your plan's list of covered drugs. Prior authorization is not required at this time. If your pharmacy has questions regarding the processing of your prescription, please have them call the [employer] pharmacy help desk at . Called pt insurance, confirmed medication does not need a PA. [facility] [place] [facility] pt previous pharmacy closed. Called and notified pt. Medication just needs sent to updated pharmacy. Pended. Please advise. * Telephone Encounter - Maddie Costa LPN - 05/08/2024 10:51 AM EDT PA submitted through covermymeds. Response pending * Telephone Encounter - Janneth Deras - 05/08/2024 9:25 AM EDT Lesli is calling Giselle Elizondo MD today to advise per [facility] [place] [facility] the medication Tiotropium ( Spiriva with handihaler) 18 mcg inhalation capsule Will need a prior authorization Patient is noting she has only 5 capsules left Please advise when PA has been completed Patient has been identified by name and birthdate. Duration of symptoms: N/A Person calling: self Call patient at: cell phone please [phone] (cell) Was an appointment scheduled: No Closing statement: Prior Authorization Calls: Thank you for calling [facility], your call will be returned within the next 24 hours or next business day. Janneth Matute documented in this encounterProtestant Hospital09-18-2024 Note* Addendum Note - Maddie Costa LPN - 05/08/2024 2:34 PM EDTAddended by: MADDIE COSTA on: 05/08/2024 02:34 PM Modules accepted: Orders [facility]09-18-2024 Telephone encounter Note* Telephone Encounter - Maddie Costa LPN - 05/08/2024 2:01 PM EDT Response via covermymeds: LESLI ROSALES ([place]: [id number]) [place] Rx #: [id number] Need Help? Call us at Outcome N/A today by [employer] 2017 NCPDP This medication or product is on your plan's list of covered drugs. Prior authorization is not required at this time. If your pharmacy has questions regarding the processing of your prescription, please have them call the [employer] pharmacy help desk at . Called pt insurance, confirmed medication does not need a PA. [facility] [place] [facility] pharmacy [facility]. Called and notified pt. Medication just needs sent to updated pharmacy. Pended. Please advise. [facility]09-18-2024 Telephone encounter Note* Telephone Encounter - Maddie Costa LPN - 05/08/2024 10:51 AM EDT PA submitted through covermymeds. Response pending [facility]09-18-2024 Telephone encounter Note* Telephone Encounter - Janneth Deras - 05/08/2024 9:25 AM EDT Lesli is calling Giselle Elizondo MD today to advise per [facility] the medication Tiotropium ( Spiriva with handihaler) 18 mcg inhalation capsule Will need a prior authorization Patient is noting she has only 5 capsules left Please advise when PA has been completed Patient has been identified by name and birthdate. Duration of symptoms: N/A Person calling: self Call patient at: cell phone please [phone] (cell) Was an appointment scheduled: No Closing statement: Prior Authorization Calls: Thank you for calling [facility], your call will be returned within the next 24 hours or next business day. Janneth Matute [facility]09-09-2024 History of Present illness Narrative* Keely Givens MD - 04/29/2024 11:00 AM EDT Images from the original note were not included. . [facility] [place] Note Patient name: Lesli Rosales PCP: Giselle Elizondo MD Referring Physician: CC: Follow-up CT and COPD HPI: Lesli Rosales 84 year old female former [id number] smoker quitting in 1975 with PMH significant for obesity, paroxysmal atrial fibrillation, COPD, HTN, psoriatic arthritis, pulmonary nodules, chronic hypoxemic respiratory failure who recently presented for evaluation of possible pulmonary fibrosis. Patient was transferring her care from [facility]. She is a very poor historian and I had no records available for review. For inhaled therapy, she was on Spiriva HandiHaler and Symbicort. Multiple requests from [facility] for imaging had been unsuccessful. She had a recent abdominal CT with review of lower lung cuts not confirming significant fibrotic lung disease. Pulmonary function test showed combined restriction and obstruction with normal diffusing capacity. I ordered an updated chest CT that showed scattered calcified pulmonary nodules and lower lobe mild bronchiectasis with some reticular markings, and a new area of groundglass infiltrate in right lung adjacent to her large calcified nodule requiring follow-up. She is scheduled for repeat CT in July. Pulmonary standpoint she states she has been doing fairly well. She has no significant change in her dyspnea on exertion, no cough or sputum production, no wheezing. No recent upper respiratory infection. She does have someright sided splinting due to pulled muscles on her right chest. DATA: Imaging / Diagnostic Studies: DATE OF EXAM: Jan 19 2024 10:56AM [facility] 0541 - CT CHEST WO IVCON / IMPRESSION: New area of groundglass adjacent to stable calcified pulmonary nodules in the right upper lobe, possibly infectious/inflammatory. Follow-up CT could be considered to assess for resolution. Additional stable calcified granulomas and noncalcified pulmonary nodules, as described. Bronchiectasis in the lower lobes with underlying subpleural reticular changes, likely sequela of underlying interstitial lung disease. I personally reviewed the images as well as with the patient which shows scattered calcified nodules largest in her right upper lobe, some minimal bronchiectasis increased reticulations. Groundglass opacity adjacent to the largest calcified nodule right upper lobe. PAST MEDICAL HISTORY No date: A-fib (HCC) No date: Chronic obstructive pulmonary disease (COPD) (HCC) No date: Hypertension No date: Lung nodules No date: Psoriasis No date: Psoriatic arthritis (HCC) ALLERGIES No Known Allergies carisoprodol (SOMA) 350 mg tablet Take 1 tablet by mouth at bedtime as needed for up to 30 days. tiotropium (SPIRIVA WITH HANDIHALER) 18 mcg inhalation capsule inhale THE CONTENTS OF ONE CAPSULE IN THE HANDIHALER every morning lidocaine (LIDODERM) 5 % gabapentin (NEURONTIN) 100 mg capsule Take 100 mg by mouth three times a day. famotidine (PEPCID) 20 mg tablet TAKE 1 TABLET BY MOUTH ONCE DAILY hydrOXYzine HCl (ATARAX) 25 mg tablet Take 1 tablet by mouth three times a day as needed. risankizumab-rzaa (SKYRIZI) 150 mg/mL injection Inject 150 mg subcutaneously every 3 months. rivaroxaban (XARELTO) 20 mg tablet Take 1 tablet by mouth daily with dinner. atenolol (TENORMIN) 25 mg tablet Take 1 tablet by mouth once daily. albuterol HFA (PROVENTIL HFA, VENTOLIN HFA) 90 mcg/actuation inhaler baclofen (LIORESAL) 5 mg tablet Take 5 mg by mouth twice daily. traMADol (ULTRAM) 50 mg tablet Take 50 mg by mouth twice daily. budesonide-formoterol (SYMBICORT) 160-4.5 mcg/actuation inhaler Inhale 2 Puffs as instructed two times a day. hydroCHLOROthiazide 12.5 mg capsule TAKE 1 CAPSULE BY MOUTH ONCE DAILY betamethasone valerate 0.1 % cream Apply to affected area once daily. Apply to arms (Patient not taking: Reported on 01/17/2024) Social History Tobacco Use Smoking status: Former Current packs/day: 0.00 Average packs/day: 1 pack/day for 17.0 years (17.0 ttl pk-yrs) Types: Cigarettes Start date: 09/22/1958 Quit date: 09/22/1975 Years since quittin.6 Smokeless tobacco: Never Vaping Use Vaping status: Never Used Substance Use Topics Alcohol use: Not Currently Drug use: Never FAMILY HISTORY Adopted: Yes PMH, Social history, family history and surgical history reviewed and updated in EMR REVIEW OF SYSTEMS: CONSTITUTIONAL: No fevers, chills, nightsweats, unintended weight loss HEENT: Denies nasal congestion/sinus symptoms CARDIOVASCULAR: No palpitations, edema. None anginal chest pain. GOODWIN PULM: See HPI NEURO: No new balance problems, peripheral weakness/paresthesias or numbness of concern. MUSC-SKEL: Chronic cervical radiculopathy PHYSICAL EXAMINATION: BP 138/90 Pulse 57 Ht 5' .63 (1.54m) Wt 165 lb 12.8 oz (75.2kg) SpO2 92% BMI 31.71 kg/(m^2). General Appearance: Obese female, NAD Skin: Ecchymoses Head: Normocephalic, no masses, lesions, tenderness or abnormalities. Oropharynx: No oral lesions or thrush. Neck: No JVD, no adenopathy. Lungs: Not labored, no wheezes or crackles. Heart: Regular rate and rhythm, systolic murmur. Extremities: No edema or clubbing. Assessment/Plan: 1. Moderate COPD -Symptoms controlled with current inhaled therapy -She will continue on Spiriva and Symbicort with as needed albuterol. Refilled her symptoms prescription 2. Former cigarette smoker -Former smoker with sequelae of COPD -Continue abstinence -Cancer screening based on duration of her smoking cessation and her age 3. Groundglass opacity on chest imaging -For follow-up CT of the chest Keely Givens MD [facility] [place] documented in this encounterProtestant Hospital09-09-2024 NoteHNO ID: [id number] Author: KEELY GIVENS MD Service: ? Author Type: Physician Type: Progress Notes Filed: 04/29/2024 12:08 Note Text: . [facility] [place] Note Patient name: Lesli Rosales PCP: Giselle Elizondo MD Referring Physician: CC: Follow-up CT and COPD HPI: Lesli Rosales 84 year old female former [id number] smoker quitting in 1975 with PMH significant for obesity, paroxysmal atrial fibrillation, COPD, HTN, psoriatic arthritis, pulmonary nodules, chronic hypoxemic respiratory failure who recently presented for evaluation of possible pulmonary fibrosis. Patient was transferring her care from [facility]. She is a very poor historian and I had no records available for review. For inhaled therapy, she was on Spiriva HandiHaler and Symbicort. Multiple requests from [facility] for imaging had been unsuccessful. She had a recent abdominal CT with review of lower lung cuts not confirming significant fibrotic lung disease. Pulmonary function test showed combined restriction and obstruction with normal diffusing capacity. I ordered an updated chest CT that showed scattered calcified pulmonary nodules and lower lobe mild bronchiectasis with some reticular markings, and a new area of groundglass infiltrate in right lung adjacent to her large calcified nodule requiring follow-up. She is scheduled for repeat CT in July. Pulmonary standpoint she states she has been doing fairly well. She has no significant change in her dyspnea on exertion, no cough or sputum production, no wheezing. No recent upper respiratory infection. She does have some right sided splinting due to pulled muscles on her right chest. DATA: Imaging / Diagnostic Studies: DATE OF EXAM: Jan 19 2024 10:56AM [facility] [place] 0541 - CT CHEST WO IVCON / IMPRESSION: New area of groundglass adjacent to stable calcified pulmonary nodules in the right upper lobe, possibly infectious/inflammatory. Follow-up CT could be considered to assess for resolution. Additional stable calcified granulomas and noncalcified pulmonary nodules, as described. Bronchiectasis in the lower lobes with underlying subpleural reticular changes, likely sequela of underlying interstitial lung disease. I personally reviewed the images as well as with the patient which shows scattered calcified nodules largest in her right upper lobe, some minimal bronchiectasis increased reticulations. Groundglass opacity adjacent to the largest calcified nodule right upper lobe. PAST MEDICAL HISTORY No date: A-fib ([facility]) No date: Chronic obstructive pulmonary disease (COPD) ([facility]) No date: Hypertension No date: Lung nodules No date: Psoriasis No date: Psoriatic arthritis ([facility]) ALLERGIES No Known Allergies carisoprodol (SOMA) 350 mg tablet Take 1 tablet by mouth at bedtime as needed for up to 30 days. tiotropium (SPIRIVA WITH HANDIHALER) 18 mcg inhalation capsule inhale THE CONTENTS OF ONE CAPSULE IN THE HANDIHALER every morning lidocaine (LIDODERM) 5 % gabapentin (NEURONTIN) 100 mg capsule Take 100 mg by mouth three times a day. famotidine (PEPCID) 20 mg tablet TAKE 1 TABLET BY MOUTH ONCE DAILY hydrOXYzine HCl (ATARAX) 25 mg tablet Take 1 tablet by mouth three times a day as needed. risankizumab-rzaa (SKYRIZI) 150 mg/mL injection Inject 150 mg subcutaneously every 3 months. rivaroxaban (XARELTO) 20 mg tablet Take 1 tablet by mouth daily with dinner. atenolol (TENORMIN) 25 mg tablet Take 1 tablet by mouth once daily. albuterol HFA (PROVENTIL HFA, VENTOLIN HFA) 90 mcg/actuation inhaler baclofen (LIORESAL) 5 mg tablet Take 5 mg by mouth twice daily. traMADol (ULTRAM) 50 mg tablet Take 50 mg by mouth twice daily. budesonide-formoterol (SYMBICORT) 160-4.5 mcg/actuation inhaler Inhale 2 Puffs as instructed two times a day. hydroCHLOROthiazide 12.5 mg capsule TAKE 1 CAPSULE BY MOUTH ONCE DAILY betamethasone valerate 0.1 % cream Apply to affected area once daily. Apply to arms (Patient not taking: Reported on 01/17/2024) Social History Tobacco Use Smoking status: Former Current packs/day: 0.00 Average packs/day: 1 pack/day for 17.0 years (17.0 ttl pk-yrs) Types: Cigarettes Start date: 09/22/1958 Quit date: 09/22/1975 Years since quittin.6 Smokeless tobacco: Never Vaping Use Vaping status: Never Used Substance Use Topics Alcohol use: Not Currently Drug use: Never FAMILY HISTORY Adopted: Yes PMH, Social history, family history and surgical history reviewed and updated in EMR REVIEW OF SYSTEMS: CONSTITUTIONAL: No fevers, chills, nightsweats, unintended weight loss HEENT: Denies nasal congestion/sinus symptoms CARDIOVASCULAR: No palpitations, edema. None anginal chest pain. GOODWIN PULM: See HPI NEURO: No new balance problems, peripheral weakness/paresthesias or numbness of concern. MUSC-SKEL: Chronic cervical radiculopathy PHYSICAL EXAMINATION: BP 138/90 Pulse 57 Ht 5' (more content not included)...[facility]08-20-2024 Telephone encounter Note* Telephone Encounter - Maddie Costa LPN - 04/09/2024 11:51 AM EDT Received rib xray from [facility]. Placed in provider's inbox for review. Route to [place] scanning [facility]08-20-2024 Miscellaneous Notes* Telephone Encounter - Maddie Costa LPN - 04/09/2024 11:51 AM EDT Received rib xray from [facility]. Placed in provider's inbox for review. Route to [place] scanning documented in this encounterProtestant Hospital08-16-2024 Telephone encounter Note * Telephone Encounter - Giselle Elizondo MD - 04/05/2024 4:11 PM EDT The following approved medication requests have been transmitted electronically. Requested Prescriptions Signed Prescriptions Disp Refills carisoprodol (SOMA) 350 mg tablet 30 tablet 0 Sig: Take 1 tablet by mouth at bedtime as needed for up to 30 days. Authorizing Provider: GISELLE ELIZONDO MD [facility]08-16-2024 Miscellaneous Notes* Telephone Encounter - Giselle Elizondo MD - 04/05/2024 4:11 PM EDT The following approved medication requests have been transmitted electronically. Requested Prescriptions Signed Prescriptions Disp Refills carisoprodol (SOMA) 350 mg tablet 30 tablet 0 Sig: Take 1 tablet by mouth at bedtime as needed for up to 30 days. Authorizing Provider: GISELLE ELIZONDO MD * Telephone Encounter - Ana Hernandez MA - 04/05/2024 11:57 AM EDT Routed to provider yesterday. Please allow 24-48 hours for a response. Patient notified. * Telephone Encounter - Dania Jones - 04/05/2024 10:57 AM EDT Patient is checking on the status of her refill request * Telephone Encounter - Dania Jones - 04/04/2024 9:56 AM EDT Prescription Refill Information The patient has been identified by name and date of : Yes Caregiver verified no other encounters exist for this prescription request: Yes Caregiver confirmed with patient/requestor that no other refills are due, in the near future, with this provider at this time: Yes The last office visit in the department: 01-17-24 Does the patient have a future office visit with this provider/department: No Requested prescriptions arisoprodol (SOMA) 350 mg tablet 30 tablet 0 11/08/2023 12/08/2023 Sig: Take 1 tablet by mouth at bedtime as needed for up to 30 days. Sent to pharmacy as: carisoprodol (SOMA) 350 mg tablet Class: Normal Route: ORAL Dania Michele April 04, 2024 9:57 AM [facility] Telephone encounter Note * Telephone Encounter - Ana Hernandez MA - 04/05/2024 11:57 AM EDT Routed to provider yesterday. Please allow 24-48 hours for a response. Patient notified. [facility]08-16-2024 Telephone encounter Note* Telephone Encounter - Dania Jones - 04/05/2024 10:57 AM EDT Patient is checking on the status of her refill request [facility] Work Phone: [phone]) 970-114808-15-2024 Telephone encounter Note* Telephone Encounter - Dania Jones - 04/04/2024 9:56 AM EDT Prescription Refill Information The patient has been identified by name and date of : Yes Caregiver verified no other encounters exist for this prescription request: Yes Caregiver confirmed with patient/requestor that no other refills are due, in the near future, with this provider at this time: Yes The last office visit in the department: 01-17-24 Does the patient have a future office visit with this provider/department: No Requested prescriptions arisoprodol (SOMA) 350 mg tablet 30 tablet 0 11/08/2023 12/08/2023 Sig: Take 1 tablet by mouth at bedtime as needed for up to 30 days. Sent to pharmacy as: carisoprodol (SOMA) 350 mg tablet Class: Normal Route: ORAL Dania Michele April 04, 2024 9:57 AM [facility]08-07-2024 Telephone encounter Note* Telephone Encounter - Keri Randolph RN - 03/27/2024 10:26 AM EDT Patient phones requesting refills as follows: Requested Prescriptions Pending Prescriptions Disp Refills budesonide-formoterol (SYMBICORT) 160-4.5 mcg/actuation inhaler 1 Each 11 Sig: Inhale 2 Puffs as instructed two times a day. Please review and advise. Keri Randolph RN [facility]08-07-2024 Miscellaneous Notes* Telephone Encounter - Keri Randolph RN - 03/27/2024 10:26 AM EDT Patient phones requesting refills as follows: Requested Prescriptions Pending Prescriptions Disp Refills budesonide-formoterol (SYMBICORT) 160-4.5 mcg/actuation inhaler 1 Each 11 Sig: Inhale 2 Puffs as instructed two times a day. Please review and advise. Keri Randolph RN documented in [facility] encounterProtest[facility]07-19-[facility]24 Telephone encounter Note * Telephone Encounter - Giselle Elizondo MD - 03/08/2024 10:09 AM EDT The following approved medication requests have been transmitted electronically. Requested Prescriptions Signed Prescriptions Disp Refills tiotropium (SPIRIVA WITH HANDIHALER) 18 mcg inhalation capsule 30 capsule 5 Sig: inhale THE CONTENTS OF ONE CAPSULE IN THE HANDIHALER every morning Authorizing Provider: GISELLE ELIZONDO MD [facility]07-19-2024 Miscellaneous Notes* Telephone Encounter - Giselle Elizondo MD - 03/08/2024 10:09 AM EDT The following approved medication requests have been transmitted electronically. Requested Prescriptions Signed Prescriptions Disp Refills tiotropium (SPIRIVA WITH HANDIHALER) 18 mcg inhalation capsule 30 capsule 5 Sig: inhale THE CONTENTS OF ONE CAPSULE IN THE HANDIHALER every morning Authorizing Provider: GISELLE ELIZONDO MD * Telephone Encounter - Nadia Jesus MA - 03/08/2024 10:02 AM EDT Pharmacy verified in Epic Patient has been identified by name and date of : Yes Patient aware RX will be sent to pharmacy. No need to notify patient. Pharmacy phones for refill(s): Requested Prescriptions Pending Prescriptions Disp Refills tiotropium (SPIRIVA WITH HANDIHALER) 18 mcg inhalation capsule [Pharmacy Med Name: SPIRIVA HANDIHALER 18 MCG CAP] 30 capsule 5 Sig: inhale THE CONTENTS OF ONE CAPSULE IN THE HANDIHALER every morning Date of last office visit : Visit date not found Date of next office visit : Visit date not found Last 2 Encounter Wt Readings: Date: Wt: 01/17/2024 75 kg (165 lb 5.5 oz) 12/28/2023 72.1 kg (159 lb) Not applicable Please advise. Nadia Jesus MA documented in this encounterProtest[facility] Hospital07-19-2024 Telephone encounter Note * Telephone Encounter - Nadia Jesus MA - 03/08/2024 10:02 AM EDT Pharmacy verified in Epic Patient has been identified by name and date of : Yes Patient aware RX will be sent to pharmacy. No need to notify patient. Pharmacy phones for refill(s): Requested Prescriptions Pending Prescriptions Disp Refills tiotropium (SPIRIVA WITH HANDIHALER) 18 mcg inhalation capsule [Pharmacy Med Name: SPIRIVA HANDIHALER 18 MCG CAP] 30 capsule 5 Sig: inhale THE CONTENTS OF ONE CAPSULE IN THE HANDIHALER every morning Date of last office visit : Visit date not found Date of next office visit : Visit date not found Last 2 Encounter Wt Readings: Date: Wt: 01/17/2024 75 kg (165 lb 5.5 oz) 12/28/2023 72.1 kg (159 lb) Not applicable Please advise. Nadia Jesus MA [facility]07-01-2024 Telephone encounter Note* Telephone Encounter - Maddie Costa LPN - 02/19/2024 4:00 PM EDT Received visit summary from [facility]. Placed in provider's inbox for review. Route to MA scanning [facility]07-01-2024 Miscellaneous Notes* Telephone Encounter - Maddie Costa LPN - 02/19/2024 4:00 PM EDT Received visit summary from [facility]. Placed in provider's inbox for review. Route to MA scanning documented in this encounterProtestant Hospital06-25-2024 Telephone encounter Note * Telephone Encounter - Maddie Costa LPN - 02/13/2024 9:56 AM EDT Received carotid duplex us from [facility]. Placed in provider's inbox for review. Route to MA scanning [facility]06-25-2024 Miscellaneous Notes* Telephone Encounter - Maddie Costa LPN - 02/13/2024 9:56 AM EDT Received carotid duplex us from [facility]. Placed in provider's inbox for review. Route to MA scanning documented in this encounterProtestant Hospital06-12-2024 Telephone encounter Note * Telephone Encounter - Akshat Bermudez LPN - 01/31/2024 9:10 AM EDT Patient notified report is at 2nd floor PSS desk for lemon picker Akshat Bermudez LPN [facility]06-12-2024 Miscellaneous Notes* Telephone Encounter - Akshat Bermudez LPN - 01/31/2024 9:10 AM EDT Patient notified report is at 2nd floor PSS desk for lemon picker Akshat Bermudez LPN * Telephone Encounter - Lorena Gustafson MA - 01/31/2024 8:34 AM EDT Patient calling and asking if she can have a copy of her lung scan report? She would like it left at the front edger. She will be here today around 2:30? She would like a call when the report is readyfor lemon picker. * Telephone Encounter - Keri Randolph RN - 01/26/2024 4:36 PM EDT Called and spoke with the patient. Patient reports increased sob but denies any increased cough, sputum production, fevers/chills. Keri Randolph RN * Telephone Encounter - Keri Randolph RN - 01/26/2024 4:35 PM EDT Images from the original note were not included. Dania Kent PA-C [facility] Pulmonology Pool; Akshat Bermudez LPN13 minutes ago (4:18 PM) Please check on symptoms. Patient has groundglass area around nodule that was not on previous scan.Is she having increased cough, sputum production, fevers/chills? Massiel * Telephone Encounter - Keri Randolph RN - 01/26/2024 2:51 PM EDT Patient calling in asking about the results from the Chest CT done on 01/19/24. Keri Randolph RN documented in this encounterProtestant Hospital06-12-2024 Telephone encounter Note * Telephone Encounter - Lorena Gustafson MA - 01/31/2024 8:34 AM EDT Patient calling and asking if she can have a copy of her lung scan report? She would like it left at the front edger. She will be here today around 2:30? She would like a call when the report is readyfor lemon picker. [facility]06-11-2024 Telephone encounter Note* Telephone Encounter - Keely Givens MD - 01/30/2024 4:17 PM EDT Spoke to Lesli regarding most recent chest CT. Minimal areas of subpleural reticulations in lower lobes. Three nodules, largest in RLL, calcified with new area of adjacent ground glass infiltrate,bronchiectasis and mild emphysema. She will need a follow-up CT. [facility]06-11-2024 Miscellaneous Notes* Telephone Encounter - Keely Givens MD - 01/30/2024 4:17 PM EDT Spoke to Lesli regarding most recent chest CT. Minimal areas of subpleural reticulations in lower lobes. Three nodules, largest in RLL, calcified with new area of adjacent ground glass infiltrate,bronchiectasis and mild emphysema. She will need a follow-up CT. documented in this encounterProtestant Hospital06-07-2024 Telephone encounter Note * Telephone Encounter - Keri Randolph RN - 01/26/2024 4:36 PM EDT Called and spoke with the patient. Patient reports increased sob but denies any increased cough, sputum production, fevers/chills. Keri Randolph RN [facility]06-07-2024 Telephone encounter Note* Telephone Encounter - Keri Randolph RN - 01/26/2024 4:35 PM EDT Images from the original note were not included. Dania Kent PA-C [facility] Pulmonology Pool; Akshat Bermudez LPN13 minutes ago (4:18 PM) Please check on symptoms. Patient has groundglass area around nodule that was not on previous scan.Is she having increased cough, sputum production, fevers/chills? Massiel [facility]06-07-2024 Telephone encounter Note* Telephone Encounter - Keri Randolph RN - 01/26/2024 2:51 PM EDT Patient calling in asking about the results from the Chest CT done on 01/19/24. Keri Randolph, RN [facility]06-06-2024 NoteHNO ID: [id number] Author: MADDIE COSTA LPN Service: ? Author Type: LICENSED NURSE Type: Progress Notes Filed: 01/25/2024 11:51 Note Text: Called pt and informed of lab result. Pt indicated [facility]05-31-2024 History of Present illness Narrative* Jomar Arredondo CT - 01/19/2024 11:00 AM EDT Radiology Service Progress Note PATIENT NAME: Lesli Rosales DATE OF SERVICE: January 19, 2024 TIME: 10:57 AM PATIENT IDENTITY VERIFICATION COMPLETED USING TWO (2) IDENTIFIERS: Name and Date of confirmedby patient verbally. FALL SCREENING: Has the patient had 2 falls in the last year or 1 fall with injury or currently using an Ambulatory Assistive Device (Walker, Cane, Wheelchair, Crutches, etc.)? No PATIENT GENDER DATA: Female. status: : No status: NO. PATIENT RELEVANT IMPLANT DATA REVIEWED: Not Applicable PATIENT PRESENTS WITH AN IMPLANTABLE OR ATTACHED JUNIOR COPYWRITER: No RADIOLOGY DEPARTMENT: CT; Exam(s) Completed: Chest PERIPHERAL IV DATA: Not applicable SIGNED BY: JACK Castro January 19, 2024 10:57 AM documented in this encounterProtestant Hospital05-31-2024 NoteHNO ID: [id number] Author: JOMAR ARREDONDO CT Service: Radiology Author Type: Technologist Type: Progress Notes Filed: 01/19/2024 10:57 Note Text: Radiology Service Progress Note PATIENT NAME: Lesli Rosales DATE OF SERVICE: January 19, 2024 TIME: 10:57 AM PATIENT IDENTITY VERIFICATION COMPLETED USING TWO (2) IDENTIFIERS: Name and Date of confirmed by patient verbally. FALL SCREENING: Has the patient had 2 falls in the last year or 1 fall with injury or currently using an Ambulatory Assistive Device (Walker, Cane, Wheelchair, Crutches, etc.)? No PATIENT GENDER DATA: Female. status: : No status: NO. PATIENT RELEVANT IMPLANT DATA REVIEWED: Not Applicable PATIENT PRESENTS WITH AN IMPLANTABLE OR ATTACHED JUNIOR COPYWRITER: No RADIOLOGY DEPARTMENT: CT; Exam(s) Completed: Chest PERIPHERAL IV DATA: Not applicable SIGNED BY: JACK Castro January 19, 2024 10:57 [facility]05-29-2024 Instructions* Patient Instructions* Giselle Elizondo MD - 01/17/2024 1:57 PM EDT Screening schedule The following prevention plan is recommended: Pneumococcal Vaccine: 65+(1 of 2 - PCV) Never done DTaP,Tdap,Td Vaccine(1 - Tdap) Never done Shingrix Vaccine(1 of 2) Never done RSV Vaccine(1 - 1-dose 60+ series) Never done Advance Directive Discussion Never done Behavioral Health Screening Never done Covid-19 Vaccine( season) due on 10/24/2023 WHAT YOU CAN DO TO PREVENT FALLS Many falls can be prevented. By making some changes, you can lower your chances of falling. Four things YOU can do to prevent falls for you* and your caregiver 1. Begin a regular exercise program Exercise is one of the most important ways to lower your chances of falling. It makes you stronger and helps you feel better. Exercises that improve balance and coordination (like Jared Chi) are the most helpful. Lack of exercise leads to weakness and increases your chances of falling. Ask your doctor or health care provider about the best type of exercise program for you. 2. Have your health care provider review your medicines Have your doctor or pharmacist review all the medicines you take, even [id number] medicines. As you get older, the way medicines work in your body can change. Some medicines, or combinations of medicines, can make you sleepy or dizzy andcan cause you to fall. 3. Have your vision checked Have your eyes checked by an eye doctor at least once a year. You may be wearing the wrong glasses or have a condition like glaucoma or cataracts that limits your vision. Poor vision can increase your chances of falling. 4. Make your home safer About half of all falls happen at home. To make your home safer: Remove things you can trip over (like papers, books, clothes, and shoes) from stairs and places where you walk. Remove small throw rugs or use double-sided tape to keep the rugs from slipping. Keep items you use often in cabinets you can reach easily without using a step stool. Have grab bars put in next to your toilet and in the tub or shower. Use non-slip mats in the bathtub and on shower floors. Improve the lighting in your home. As you get older, you need brighter lights to see well. Hang light-weight curtains or shades to reduce glare. Have handrails and lights put in on all staircases. Wear shoes both inside and outside the house. Avoid going barefoot or wearing slippers. For more information, contact: Centers for Disease Control and Prevention www.cdc.gov/injury * This information may not apply if you have certain medical conditions. WHAT YOU CAN DO TO PREVENT FALLS Many falls can be prevented. By making some changes, you can lower your chances of falling. Four things YOU can do to prevent falls for you* and your caregiver 1. Begin a regular exercise program Exercise is one of the most important ways to lower your chances of falling. It makes you stronger and helps you feel better. Exercises that improve balance and coordination (like Jared Chi) are the most helpful. Lack of exercise leads to weakness and increases your chances of falling. Ask your doctor or health care provider about the best type of exercise program for you. 2. Have your health care provider review your medicines Have your doctor or pharmacist review all the medicines you take, even [id number] medicines. As you get older, the way medicines work in your body can change. Some medicines, or combinations of medicines, can make you sleepy or dizzy andcan cause you to fall. 3. Have your vision checked Have your eyes checked by an eye doctor at least once a year. You may be wearing the wrong glasses or have a condition like glaucoma or cataracts that limits your vision. Poor vision can increase your chances of falling. 4. Make your home safer About half of all falls happen at home. To make your home safer: Remove things you can trip over (like papers, books, clothes, and shoes) from stairs and places where you walk. Remove small throw rugs or use double-sided tape to keep the rugs from slipping. Keep items you use often in cabinets you can reach easily without using a step stool. Have grab bars put in next to your toilet and in the tub or shower. Use non-slip mats in the bathtub and on shower floors. Improve the lighting in your home. As you get older, you need brighter lights to see well. Hang light-weight curtains or shades to reduce glare. Have handrails and lights put in on all staircases. Wear shoes both inside and outside the house. Avoid going barefoot or wearing slippers. For more information, contact: Centers for Disease Control and Prevention www.cdc.gov/injury * This information may not apply if you have certain medical conditions. documented in this encounterProtestant Hospital05-29-2024 NoteHNO ID: [id number] Author: GISELLE ELIZONDO MD Service: ? Author Type: Physician Type: Progress Notes Filed: 01/17/2024 17:24 Note Text: Lesli Rosales is a 83 year old female here for a Medicare wellness visit. Neuro - Admits to having troubles with her memories - Feels off balance, wobbly - Has not been to physical therapy - Has trouble stepping down/up curbs without holding onto something, can not walk a straight line - States Must be old age I guess Skin - Has a splotch on her back - Onset more than 2 months ago - Seen by flight service agent a few weeks ago - Was given topical ointment, has not beneficial - Spot is still there, states that it is itchy and become painful when standing for a long period of time Weight - Is trying to lose weight, weight tends to fluctuate but overall feels that she been successful - Last 3 Encounter Wt Readings: Date: Wt: 01/17/2024 75 kg (165 lb 5.5 oz) 12/28/2023 72.1 kg (159 lb) 11/26/2023 74.1 kg (163 lb 5.8 oz) Medicare Health Risk Assessment General Health Good Exercise: Minutes/Day Exercise: Days/Week Alcohol: Daily Use No Alcohol: Drinks/Day Alcohol: 6 or more drinks Feel off balance Yes Concerns: Teeth/Dentures No Concerns: Sexual function No Troubled by feelings No Frequency: Eating healthy diet Most days ADLs requiring help None Safety precautions in home/vehicle Yes Smoke, vape, chews tobacco Former smoker, quit in 1975 Difficulty hearing No Difficulty seeing No Current Providers Specialists: I have reviewed specialist-related care of the patient in the medical record. Medical/Family history review Reviewed and updated problem list, medical/surgical/family/social history, medications, and allergies. Opioid use review Opioid Medications (last 90 days) 01/17/2024 Opioid Medications tramadol HCl 50 mg BID ORAL (50 mg tab) No sig Details Patient-reported medication Depression screening 01/17/24 - 07/05/2022 11/28/2022 11/28/2022 Depression Screening PHQ-2 Score 3 2 2 Depression screening tool completed and reviewed. Based on score and interview, patient is not at risk for depression. Screening tool discussed with patient, and I recommended no further intervention at this time. Cognitive screening Cognitive screening reviewed and Recommended referral for further evaluation (score 0-2). Functional Observation Was the patient's timed Up AND Go test unsteady or ? 12 seconds? Yes Advance Care Planning Patient did not wish or was not able to name a surrogate decision maker or provide an advance care plan Measurements BP 143/85 Pulse 60 Ht 154 cm (5' 0.63) Wt 75 kg (165 lb 5.5 oz) SpO2 100% BMI 31.62 kg/m? General: Alert, well developed, well nourished, no distress, pleasant and cooperative. Obese. HEENT: No adenopathy or thyromegaly Heart: Regular rate and rhythm. Normal S1 and S2. No murmurs, rubs, or gallops. Lungs: Clear to auscultation bilaterally. No respiratory distress. No wheezes, rales, or rhonchi. Abdomen: Soft, non-tender, no distention Extremities: Feet/ankles without edema, posterior tibial pulses full and symmetrical she has a mildly broad based gait Skin: sun damage, the R upper back medial to the scapula has excoriations (from her scratching her back for her) Musculoskeletal: artritis changes Assessment/Plan Medicare annual wellness visit, initial () - Fall avoidance information provided - Personalized prevention plan provided () Medicare annual wellness visit, subsequent (primary encounter diagnosis) Comment: Generally healthy adult female here for Medicare wellness visit Plan: As below (J84.112) Idiopathic pulmonary fibrosis (HCC) Comment: Follows with pulmonology Plan: Continue current treatment plan (L40.50) Psoriatic arthritis (HCC) Comment: Well managed with Skyrizi and gabapentin Plan: continue current treatment plan (E66.9) Obesity, Class I, BMI 30-34.9 Comment: pt is currently working on losing weight Plan: Encouraged healthy diet and regular exercise (R41.3) 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 . Recommended further evaluation, which she declines at this time Plan: Will continue to monitor (R26.9) Abnormality of gait (R29.6) Falling episodes Comment: Ongoing. Recommended further evaluation and/or physical therapy, which she declines at this time. Fall avoidance education provided today in office. Plan: FALLS RISK EDUCATION Will continue to monitor she is offered a physical therapy eval and she does not want to go. (R23.8) Skin irritation Comment: post herpetic neuralgia a possibility, Plan: don't want to add more Requested Prescriptions No prescriptions requested or ordered in this encounter Scribe Attestation: By signing my name adi (more content not included)...[facility] 01-17-2024 History of Present illness Narrative* Giselle Elizondo MD - 01/17/2024 1:43 PM EDT Images from the original note were not included. Lesli Rosales is a 83 year old female here for a Medicare wellness visit. Neuro - Admits to having troubles with her memories - Feels off balance, wobbly - Has not been to physical therapy - Has trouble stepping down/up curbs without holding onto something, can not walk a straight line - States Must be old age I guess Skin - Has a splotch on her back - Onset more than 2 months ago - Seen by flight service agent a few weeks ago - Was given topical ointment, has not beneficial - Spot is still there, states that it is itchy and become painful when standing for a long period of time Weight - Is trying to lose weight, weight tends to fluctuate but overall feels that she been successful - Last 3 Encounter Wt Readings: Date: Wt: 01/17/2024 75 kg (165 lb 5.5 oz) 12/28/2023 72.1 kg (159 lb) 11/26/2023 74.1 kg (163 lb 5.8 oz) Medicare Health Risk Assessment General Health Good Exercise: Minutes/Day Exercise: Days/Week Alcohol: Daily Use No Alcohol: Drinks/Day Alcohol: 6 or more drinks Feel off balance Yes Concerns: Teeth/Dentures No Concerns: Sexual function No Troubled by feelings No Frequency: Eating healthy diet Most days ADLs requiring help None Safety precautions in home/vehicle Yes Smoke, vape, chews tobacco Former smoker, quit in 1975 Difficulty hearing No Difficulty seeing No Current Providers Specialists: I have reviewed specialist-related care of the patient in the medical record. Medical/Family history review Reviewed and updated problem list, medical/surgical/family/social history, medications, and allergies. Opioid use review Opioid Medications (last 90 days) 01/17/2024 Opioid Medications tramadol HCl 50 mg BID ORAL (50 mg tab) No sig Details Patient-reported medication Depression screening 01/17/24 - 07/05/2022 11/28/2022 11/28/2022 Depression Screening PHQ-2 Score 3 2 2 Depression screening tool completed and reviewed. Based on score and interview, patient is not at risk for depression. Screening tool discussed with patient, and I recommended no further interventionat this time. Cognitive screening Cognitive screening reviewed and Recommended referral for further evaluation (score 0-2). Functional Observation Was the patient's timed Up & Go test unsteady or ? 12 seconds? Yes Advance Care Planning Patient did not wish or was not able to name a surrogate decision maker or provide an advance care plan Measurements BP 143/85 Pulse 60 Ht 154 cm (5' 0.63) Wt 75 kg (165 lb 5.5 oz) SpO2 100% BMI 31.62 kg/m General: Alert, well developed, well nourished, no distress, pleasant and cooperative. Obese. HEENT: No adenopathy or thyromegaly Heart: Regular rate and rhythm. Normal S1 and S2. No murmurs, rubs, or gallops. Lungs: Clear to auscultation bilaterally. No respiratory distress. No wheezes, rales, or rhonchi. Abdomen: Soft, non-tender, no distention Extremities: Feet/ankles without edema, posterior tibial pulses full and symmetrical she has a mildly broad based gait Skin: sun damage, the R upper back medial to the scapula has excoriations (from her scratching her back for her) Musculoskeletal: artritis changes Assessment/Plan Medicare annual wellness visit, initial (Z00.) - Fall avoidance information provided - Personalized prevention plan provided (Z.) Medicare annual wellness visit, subsequent (primary encounter diagnosis) Comment: Generally healthy adult female here for Medicare wellness visit Plan: As below (J84.112) Idiopathic pulmonary fibrosis (HCC) Comment: Follows with pulmonology Plan: Continue current treatment plan (L40.50) Psoriatic arthritis (HCC) Comment: Well managed with Skyrizi and gabapentin Plan: continue current treatment plan (E66.9) Obesity, Class I, BMI 30-34.9 Comment: pt is currently working on losing weight Plan: Encouraged healthy diet and regular exercise (R41.3) 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 . Recommended further evaluation, which she declines at this time Plan: Will continue to monitor (R26.9) Abnormality of gait (R29.6) Falling episodes Comment: Ongoing. Recommended further evaluation and/or physical therapy, which she declines at this time. Fall avoidance education provided today in office. Plan: FALLS RISK EDUCATION Will continue to monitor she is offered a physical therapy eval and she does not want to go. (R23.8) Skin irritation Comment: post herpetic neuralgia a possibility, Plan: don't want to add more Requested Prescriptions No prescriptions requested or ordered in this encounter Scribe Attestation: By signing my name below, Evan Jeter, attest that this documentation has been prepared under the direction and in the presence of Harpreet Elizondo M.D. Electronically Signed: Carlos Austin. January 17, 2024 1:43 PM Provider Attestation: Giselle Jeter MD, personally performed the services described in this documentation. All medical record entries made by the scribe were at my direction and in my telephonic presence. I have reviewed the chart and discharge instructions (if applicable), and agree that the record reflects my personal performance and is accurate and complete. Electronically Signed: Giselle Elizondo MD January 17, 2024 5:21 PM documented in this encounterProtest[facility]05-22-2024 Telephone encounter Note * Telephone Encounter - Marjorie Redman LPN - 01/10/2024 2:42 PM EDT Patient will have lab drawn the day of appointment. [facility]05-22-2024 Miscellaneous Notes* Telephone Encounter - Marjorie Redman LPN - 01/10/2024 2:42 PM EDT Patient will have lab drawn the day of appointment. * Telephone Encounter - Ana Mace APRN.CNP - 01/10/2024 1:47 PM EDT Lab ordered, nonfasting Ana Mace APRN.CNP * Telephone Encounter - Maddie Costa LPN - 01/10/2024 1:31 PM EDT Called and informed pt of results. Pt indicated understanding and also states her labs in october showed low potassium and elevated sodium. Informed pt that this additional lab work cannot be added on to previously drawn labs as it is not the correct tube type. Pt has appt 01/18 with PCP and asks if she should have CMP drawn prior to this appt so results can be discussed at that time. Please advise. * Telephone Encounter - Marjorie Redman LPN - 01/09/2024 4:16 PM EDT Voicemail not activated. * Telephone Encounter - Giselle Elizondo MD - 01/09/2024 3:39 PM EDT Blood count ok Giselle Elizondo MD documented in this encounterProtest[facility] Hospital05-22-2024 Telephone encounter Note * Telephone Encounter - Ana Mace APRN.CNP - 01/10/2024 1:47 PM EDT Lab ordered, nonfasting Ana Mace APRN.ACCOUNT MANAGER TRAINEE [facility]05-22-2024 Telephone encounter Note* Telephone Encounter - Maddie Costa LPN - 01/10/2024 1:31 PM EDT Called and informed pt of results. Pt indicated understanding and also states her labs in october showed low potassium and elevated sodium. Informed pt that this additional lab work cannot be added on to previously drawn labs as it is not the correct tube type. Pt has appt 01/18 with PCP and asks if she should have CMP drawn prior to this appt so results can be discussed at that time. Please advise. [facility]05-21-2024 Telephone encounter Note* Telephone Encounter - Marjorie Redman LPN - 01/09/2024 4:16 PM EDT Voicemail not activated. [facility]05-21-[facility]24 Telephone encounter Note* Telephone Encounter - Giselle Elizondo MD - 01/09/2024 3:39 PM EDT Blood count ok Giselle Elizondo MD [facility]05-17-2024 Telephone encounter Note* Telephone Encounter - Akshat Bermudez LPN - 01/05/2024 10:02 AM EDT Noted. Thank you! [facility]05-17-2024 Miscellaneous Notes* Telephone Encounter - Akshat Bermudez LPN - 01/05/2024 10:02 AM EDT Noted. Thank you! * Telephone Encounter - Antonina Godinez - 01/05/2024 9:48 AM EDT Patient called and is dropping off her Pulmonology report of her CT back in 2021 from [facility] in the next few weeks. Antonina Godinez documented in this encounterProtestant Hospital05-17-2024 Telephone encounter Note * Telephone Encounter - Antonina Godinez - 01/05/2024 9:48 AM EDT Patient called and is dropping off her Pulmonology report of her CT back in 2021 from [facility] in the next few weeks. Antonina Godinez [facility] Work Phone: [phone] History of Present illness Narrative* Keely Givens MD - 12/28/2023 10:30 AM EDT Images from the original note were not included. . [facility] [place] Note Patient name: Lesli Rosales PCP: Giselle Elizondo MD Referring Physician: HPI: Lesli Rosales 83 year old female former [id number] smoker, quitting in 1975 with PMH significant for obesity, PAF, COPD, HTN, psoriatic arthritis, pulmonary nodules, possible pulmonary fibrosis, oxygen need. At initial visit, patient was transferring care from [facility]. She is hector poor historian and no records available for review. She was not using her inhaler therapy corre ctly, using Breztri like a rescue inhaler. Current inhaled therapy consists of Spiriva handihaler and Symbicort. 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 Numerous requests from [facility] for records specifically imaging imaging (especially in light of IPF) have been unsuccessful. Recent abdominal CT with lower lung cuts images donot confirm fibrotic lung disease. She states she has been more short of breath with less activity,feeling fatigued. She has been using her oxygen more often. No specific cough, sputum production, wheezing or chest pain. He does have back pain related to postherpetic neuralgia. DME: [employer] 2 L DATA: Labs: Component Ref Range & Units 4 wk ago SARS-CoV-2 (Agent of COVID-19) See comment Not detected Influenza A PCR Not Detected Not detected Influenza B PCR Not Detected Not detected RSV PCR Not Detected Not detected Imaging / Diagnostic Studies: DATE OF EXAM: Jun 14 2023 11:18AM [facility]DC 0530 - CT ABD/PEL W IVCON / PROCEDURE REASON: multiple diagnoses I personally reviewed and analyzed the lung windows which shows some linear atelectasis but no findings to suggest IPF PAST MEDICAL HISTORY Diagnosis Date A-fib (HCC) Chronic obstructive pulmonary disease (COPD) (HCC) Hypertension Lung nodules Psoriasis Psoriatic arthritis (HCC) ALLERGIES No Known Allergies lidocaine (LIDODERM) 5 % gabapentin (NEURONTIN) 100 mg capsule Take 100 mg by mouth three times a day. famotidine (PEPCID) 20 mg tablet TAKE 1 TABLET BY MOUTH ONCE DAILY hydroCHLOROthiazide 12.5 mg capsule TAKE 1 CAPSULE BY MOUTH ONCE DAILY tiotropium (SPIRIVA WITH HANDIHALER) 18 mcg inhalation capsule inhale THE CONTENTS OF ONE CAPSULE IN THE HANDIHALER every morning risankizumab-rzaa (SKYRIZI) 150 mg/mL injection Inject 150 mg subcutaneously every 3 months. budesonide-formoterol (SYMBICORT) 160-4.5 mcg/actuation inhaler Inhale 2 Puffs as instructed two times a day. rivaroxaban (XARELTO) 20 mg tablet Take 1 tablet by mouth daily with dinner. atenolol (TENORMIN) 25 mg tablet Take 1 tablet by mouth once daily. albuterol HFA (PROVENTIL HFA, VENTOLIN HFA) 90 mcg/actuation inhaler baclofen (LIORESAL) 5 mg tablet Take 5 mg by mouth twice daily. traMADol (ULTRAM) 50 mg tablet Take 50 mg by mouth twice daily. hydrOXYzine HCl (ATARAX) 25 mg tablet Take 1 tablet by mouth three times a day as needed. betamethasone valerate 0.1 % cream Apply to affected area once daily. Apply to arms Social History Tobacco Use Smoking status: Former Packs/day: 1.00 Years: 17.00 Additional pack years: 0.00 Total pack years: 17.00 Types: Cigarettes Quit date: 09/22/1975 Years since quittin.2 Smokeless tobacco: Never Vaping Use Vaping Use: Never used Substance Use Topics Alcohol use: Not Currently Drug use: Never FAMILY HISTORY Adopted: Yes PAST SURGICAL HISTORY Procedure Laterality Date APPENDECTOMY BACK SURGERY HX 1985 CHOLECYSTECTOMY HX COLONOSCOPY SCREENING EGD W/O BRSH SPEC VARICIES INJ REPAIR OF RECTOCELE REPAIR UMBILICAL HERNIA 2010 SHX TOTAL SHOULDER REVERSE Right SLING OPER STRES INCONTINENCE UMBILICAL HERNIA REPAIR 5 OR OLDER 1966 VAGINAL HYSTERECTOMY PMH, Social history, family history and surgical history reviewed and updated in EMR REVIEW OF SYSTEMS: CONSTITUTIONAL: No fevers, chills, nightsweats, unintended weight loss. Some fatigue CARDIOVASCULAR: No chest pain, palpitations, edema. PULM: See HPI NEURO: Postherpetic neuralgia. MUSC-SKEL: Polyarticular joint pain INTEGUMENTARY: Skin lesion controlled with Skyrizi PHYSICAL EXAMINATION: Wt 159 lb (72.1kg) BP 124/72, pulse 58, RR 16, SpO2 97% on room air General Appearance: Obese female, NAD. Skin: Skin color, texture, turgor normal, no suspicious rashes or lesions. Oropharynx: No oral lesions or thrush. Neck: No masses or adenopathy Chest wall: Kyphosis Lungs: Not labored, normal to percussion, faint crackles. Heart: Regular rate and rhythm, systolic murmur left upper sternal border. Extremities: No edema. Musculoskeletal: No synovitis. Assessment/Plan: COPD, unspecified -COPD controlled with current inhaled therapy. Reviewed proper use of her Spiriva and Symbicort. Nochange in therapy at this time H/o ILD -Carries history of IPF but this is not confirmed. She does have restrictive lung disease and crackles on exam -Chest CT Restrictive lung disease -See #2 -Could be related to her kyphosis Pulmonary nodules -History of pulmonary nodules reportedly stable since 2011 but did not have imaging to confirm Former cigarette smoker -Former remote [id number] smoker -Patient does not qualify for lung cancer screening based on the duration of her smoking cessation and her age Keely Givens MD [facility] [place] documented in this encounterProtestant Hospital04-08-2024 Miscellaneous Notes* Telephone Encounter - Yadira Fernández PA-C - 11/27/2023 10:33 AM EDT Spoke to patient. Informed her that testing was negative for COVID-19, influenza, and RSV. documented in this encounterProtestant Hospital04-07-2024 History of Present illness Narrative* Eula Gabriel APRN.ACCOUNT MANAGER TRAINEE - 11/26/2023 2:59 PM EDT This note was created using Trekeariter. Subjective Lesli Rosales is a 83 year old female. HPI Sore throat, headache, cough and weakness that started yesterday. No known sick contacts. She states that the headache this morning that has since resolved . Review of Systems Constitutional: Positive for chills. Negative for fatigue. HENT: Positive for sore throat. Respiratory: Positive for cough. Neurological: Positive for headaches. Objective BP 141/97 Pulse 86 Temp 36.3 C (97.4 F) Wt 74.1 kg (163 lb 5.8 oz) SpO2 92% BMI 31.24 kg/m Physical Exam Vitals and nursing note reviewed. Constitutional: General: She is not in acute distress. Appearance: Normal appearance. She is not ill-appearing. HENT: Head: Normocephalic. Mouth/Throat: Mouth: Mucous membranes are moist. Pharynx: No oropharyngeal exudate or posterior oropharyngeal erythema. Eyes: Conjunctiva/sclera: Conjunctivae normal. Cardiovascular: Rate and Rhythm: Normal rate and regular rhythm. Pulmonary: Effort: Pulmonary effort is normal. Breath sounds: Normal breath sounds. Musculoskeletal: General: Normal range of motion. Cervical back: Normal range of motion. Skin: General: Skin is warm and dry. Neurological: General: No focal deficit present. Mental Status: She is alert. Psychiatric: Mood and Affect: Mood normal. Behavior: Behavior normal. Assessment and Plan ASSESSMENT/PLAN: 1. URI, acute - ICD9: 465.9, ICD10: J06.9 - Discussed viral etiology and rationale for treatment. - Rapid strep negative in office today - Symptomatic treatment with prn analgesia - Supportive care with fluids and rest - The patient may also use OTC decongestants prn, OTC cough and cold meds as needed, and warm salt water gargles, throat lozenges and/or OTC throat spray as needed. - Follow up in one week if symptoms persist or sooner if worsening of symptoms -As patient has multiple chronic medical conditions she was swabbed for influenza and COVID. Patient will be notified of results and at that point discussion can be had whether antiviral's would be appropriate. -Patient was afebrile here with clear lung sounds and I did not feel that a chest x-ray was necessary at this time. -Discussed with patient that if she was having headache that was out of proportion to her normal headaches I would recommend evaluation at the emergency department. She notes that her headache has resolved since this morning. - COVID & INFLUENZA A/B & RSV NAAT, ROUTINE - RAPID STREP TEST B/O Eula Gabriel APRN.MARJ documented in this encounterProtestant Hospital03-21-2024 Miscellaneous Notes* Telephone Encounter - Maddie Costa LPN - 11/09/2023 1:24 PM EDT Informed pt. Pt indicated understanding. * Telephone Encounter - Giselle Elizondo MD - 11/09/2023 1:04 PM EDT Bananas will help the potassium, so yes, have a couple a week. Giselle Elizondo MD * Telephone Encounter - Maddie Costa LPN - 11/09/2023 9:18 AM EDT Called and informed pt of lab results, pt states she is feeling well. Asks if she should eat an extra banana or two during the week and watch her salt intake please advise. * Telephone Encounter - Maddie Costa LPN - 11/07/2023 5:16 PM EDT Called pt. VM not set up. Please re attempt. * Telephone Encounter - Giselle Elizondo MD - 11/07/2023 4:59 PM EDT Sodium little high and potassium a little low. Not sure why this would be . How are you feeling. Hba1c in normal range Thyroid in normal range. Giselle Elizondo MD documented in this encounterProtestant Hospital03-20-2024 Miscellaneous Notes* Telephone Encounter - Giselle Elizondo MD - 11/08/2023 5:07 PM EDT The following approved medication requests have been transmitted electronically. Requested Prescriptions Signed Prescriptions Disp Refills carisoprodol (SOMA) 350 mg tablet 30 tablet 0 Sig: Take 1 tablet by mouth at bedtime as needed for up to 30 days. Authorizing Provider: GISELLE ELIZONDO MD * Telephone Encounter - Dilma Gonsalez - 11/08/2023 2:58 PM EDT Patient called back again wanting to Dr. Elizondo to review her results and get a refill of Soma. I advised her I sent this message earlier but the clinical staff has been in with patients and theywill call her back as soon as they are available. Please call her at [phone]. * Telephone Encounter - Dilma Gonsalez - 11/08/2023 12:54 PM EDT Patient said she spoke to a nurse last night and asked for Dr. Elizondo to review her labs. Said she also asked for a refill of Soma. She is upset that no one has called her back. In the [employer] message from yesterday, it is noted someone tried to call the patient at 5:17 pm; noanswer and vm not set up. Patient said that no one ever called her. There was nothing noted about her requesting a refill of Soma. It is not on her current med list. Please review. She uses [facility] in [place]. She wants a call back at [phone]. documented in this encounterProtestant Hospital03-14-2024 History of Present illness Narrative* Danae Gerardo MA - 11/02/2023 2:34 PM EDT POPULATION HEALTH NAVIGATION OUTREACH Action/FYI spoke to pt and scheduled wellness Reason for Outreach Care Gap/HCC or Scheduling Wellness Visits Care Gaps due: Medicare Annual Wellness Visit Patient Contacted: Spoke to patient/parent/or legal guardian Patient identified by name and : Yes Care Gap/HCC/Scheduling Wellness actions taken: Patient scheduled/pended labs: Medicare Annual Wellness Visit 12/25/2023 in [facility] with KEELY GIVENS - 6 MTH F/U COPD 01/17/[address] [facility] with GISELLE ELIZONDO R - medicare wellness Navigation Signature: Danae Gerardo MA November 02, 2023 2:35 PM documented in this encounterProtestant Hospital02-15-2024 Miscellaneous Notes* Telephone Encounter - Marjorie Redman LPN - 10/05/2023 8:23 AM EST Pharmacy verified in [facility] Patient has been identified by name and [...] DAILY Date of last office visit : 09/28/2023 Date of next office visit : Visit date not found Last 2 Encounter Wt Readings: Date: Wt: 09/28/2023 74 kg (163 lb 2.3 oz) 08/07/2023 74.4 kg (164 lb) Not applicable Please advise. Marjorie Redman LPN documented in this encounterProtestant Hospital02-12-2024 Miscellaneous Notes* Telephone Encounter - Marjorie Redman LPN - 10/02/2023 10:43 AM EST Pharmacy verified in [facility] Patient has been identified by name and date of : Yes Patient aware RX will be sent to pharmacy. No need to notify patient. Pharmacy phones for refill(s): Requested Prescriptions Pending Prescriptions Disp Refills hydroCHLOROthiazide 12.5 mg capsule [Pharmacy Med Name: hydroCHLOROthiazide 12.5 MG Oral Capsule] 100 capsule 2 Sig: TAKE 1 CAPSULE BY MOUTH ONCE DAILY Date of last office visit : 09/28/2023 Date of next office visit : Visit date not found Last 2 Encounter Wt Readings: Date: Wt: 09/28/2023 74 kg (163 lb 2.3 oz) 08/07/2023 74.4 kg (164 lb) Blood Pressure: BUN (mg/dL) Date Value 05/30/2023 16 Creatinine (mg/dL) Date Value 05/30/2023 0.63 Sodium (mmol/L) Date Value 05/30/2023 141 Potassium (mmol/L) Date Value 05/30/2023 3.8 Last 1 Encounter BP Readings: Date: BP: 09/28/2023 136/79 Please advise. Marjorie Redman LPN documented in this encounterProtestant Hospital02-08-2024 History of Present illness Narrative* Giselle Elizondo MD - 09/28/2023 1:02 PM EST CHIEF COMPLAINT Patient presents with: Derm Problem HISTORY OF PRESENT ILLNESS Lesli Rosales is a 83 year old female who presents here today for derm problem. I last saw this patient on 11/28/2022. - Endorses itching and pain involving her r upper back back, just inferior to the shoulder blade - Onset 3-4 months ago - recalls having a rash and pain in the same area a few years ago Health Maintenance Due for Pneumococcal Vaccine: 65+ (1 of 2- PCV) Due for RSV Vaccine (1 - 1 dose 60+ series) Due for Bone Density Screening Due for Advanced Directive Discussion Due for Depression Assessment Labs reviewed. Past medical history, appointments, medications, allergies reviewed. REVIEW OF SYSTEMS General: Feels well, no weight changes, fevers or chills. HEENT: No sinus congestion, earache, sore throat. Cardiac: No chest pain, palpitations Resp: No cough, wheeze, shortness of breath GI: No reflux symptoms, food intolerance, bowel changes. : No urinary frequency, dysuria. MS: No pain or joint complaints. Skin: +itchiness of the back, under the scapula PAST MEDICAL HISTORY PAST MEDICAL HISTORY Diagnosis Date A-fib (HCC) Chronic obstructive pulmonary disease (COPD) (HCC) Hypertension Lung nodules Lung nodules Psoriasis Psoriatic arthritis (HCC) PHYSICAL EXAMINATION BP 136/79 Pulse 65 Ht 154 cm (5' 0.63) Wt 74 kg (163 lb 2.3 oz) SpO2 95% BMI 31.20 kg/m General: Alert, well developed, well nourished, no distress, pleasant and cooperative. Obese. Heart: Regular rate and rhythm. Normal S1 and S2. No murmurs, rubs, or gallops. Lungs: Clear to auscultation bilaterally. No respiratory distress. No wheezes, rales, or rhonchi. Abdomen: Soft, non-tender, no distention. Extremities: Feet/ankles without edema, posterior tibial pulses full and symmetrical. Skin: excoriations inferior to the R scapula. No evident blisters or other rash. Data Reviewed Assessment/Plan (L29.9) Itching (primary encounter diagnosis) (M54.9) Upper back pain Comment: Consider post herpetic neuralgia from a rather remote episode of shingles she believes wasin the same spot. . No rash present on exam Plan: Start hydrOXYzine HCl (ATARAX) 25 mg tablet (R63.4) Abnormal weight loss Comment: Will checks labs as ordered below Plan: as below (I10) HTN (hypertension), benign Comment: Adequately controlled. Due for routine lab in October Plan: COMP METABOLIC PANEL (I48.0) Paroxysmal atrial fibrillation (HCC) Comment: Stable Plan: Continue current regimen (R73.9) Hyperglycemia Comment: Due for routine lab in October Plan: COMP METABOLIC PANEL, HGB A1C (K59.09) Chronic constipation Comment: Due for routine lab in October Plan: TSH BLD Requested Prescriptions Signed Prescriptions Disp Refills hydrOXYzine HCl (ATARAX) 25 mg tablet 91 tablet 1 Sig: Take 1 tablet by mouth three times a day as needed. RTO: as needed Scribe Attestation: By signing my name below, IEvan, attest that this documentation has been prepared under the direction and in the presence of Harpreet Elizondo M.D. Electronically Signed: Carlos Austin. September 28, 2023 1:02 PM Provider Attestation: Giselle Jeter MD, personally performed the services described in this documentation. All medical record entries made by the scribe were at my direction and in my presence. I have reviewed the chart and discharge instructions (if applicable), and agree that the record reflects my personal performance and is accurate and complete. Electronically Signed: Giselle Elizondo MD September 28, 2023 2:53PM documented in this encounterProtestant Hospital01-30-2024 Miscellaneous Notes* Telephone Encounter - Anthony MicheleDania Yanely - 09/19/2023 10:10 AM EST Patient is out of medication. * Telephone Encounter - Anthony Michele Dania M - 09/19/2023 10:09 AM EST Pharmacy verified in Epic Patient has been identified by name and date of : Yes Patient aware RX will be sent to pharmacy. No need to notify patient. Patient phones for refill(s): Requested Prescriptions Pending Prescriptions Disp Refills SPIRIVA WITH HANDIHALER 18 mcg inhalation capsule Date of last office visit : 11/28/2022 Date of next office visit : Visit date not found Last 2 Encounter Wt Readings: Date: Wt: 08/07/2023 74.4 kg (164 lb) 06/16/2023 74.4 kg (164 lb) Not applicable Please advise. Daniadrew Cruz [facility] documented in this encounterProtestant Hospital12-22-2023 Telephone encounter Note * Telephone Encounter - Gregory Christopher LPN - 08/11/2023 10:19 AM EST Last follow up: 05/17/2023 Next appointment: Visit [...] and incidence of candidiasis. Do not swallow.. [facility] [id number] Miscellaneous Notes* Telephone Encounter - Gregory Christopher LPN - 08/11/2023 10:19 AM EST Last follow up: 05/17/2023 Next appointment: Visit [...] candidiasis. Do not swallow.. documented [facility] this [facility]11-30-2023 History of Present illness Narrative* Allegra Bermudez, RT(R) - 07/20/2023 11:15 AM EST Radiology Service Progress Note DATE OF SERVICE: [...] Completed: Body: Pancreas/Biliary SIGNATURE: Allegra Bermudez RDMS, SUKI- Zenaida ([facility]) PATIENT NAME: Lesli Rosales DATE: July 20, 2023 TIME: 11:35 AM documented in this encounterProtestant Hospital11-29-2023 History of Present illness Narrative* Keely Givens MD - 07/19/2023 10:15 AM EST Despite multiple requests from [facility], have not received pathology reports of lung biopsy from 2012 and 2016 nor PACS images of last chest CT from 2020. Did receive office notes (not helpful as these are available in Care Everywhere) but did receive latest PFT data (very small print difficult to read): FVC 1.30 L 58% FEV1 0.70 L45% FEV1/FVC 50% DLCO 6.38 28% documented in this encounterProtestant Hospital11-17-2023 Miscellaneous Notes* Telephone Encounter - Giselle Elizondo MD - 07/07/2023 5:10 PM EST The following approved medication requests have been transmitted electronically. Requested Prescriptions Signed Prescriptions Disp Refills carisoprodol (SOMA) 350 mg tablet 30 tablet 0 Sig: Take 1 tablet by mouth at bedtime as needed for up to 30 days. Authorizing Provider: GISELLE ELIZONDO MD * Telephone Encounter - Marjorie Redman LPN - 07/07/2023 3:40 PM EST Pharmacy verified in [facility] Patient has been identified by name and [...] lb 3.2 oz) Not applicable Please advise. Marjorie Redman LPN * Telephone Encounter - Janneth Deras - 07/07/2023 2:23 PM EST Lesli Rosales is calling Giselle Elizondo MD today to request a medication not on current med list Carisoprodol (SOMA) 350 mg tablet Please send to [facility] [place] when provider agrees for this fill Patient has been identified by name and birthdate. Duration of symptoms: ongoing Person calling: self Call patient at: at home [phone] (home) [phone] (work) [phone] (cell) Was an appointment scheduled: No Closing statement: Results or non-symptom based questions: Thank you for calling [facility], your call will be returned within the next business day. Janneth Matute documented in this encounterProtestant Hospital10-27-2023 History of Present illness Narrative* Keely Givens MD - 06/16/2023 3:15 PM EDT Images from the original note were not included. . [facility] [place] Note Patient name: Lesli Rosales PCP: Giselle [...] but I have yet to receive. Reviewing h er EMR states that she has pulmonary fibrosis [...] or sputum production. 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 Coronary arterycalcifications are present. 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 Restrictive lung disease -Crackles on exam and mention of fibrosis but report of last chest CT does not mention reticulations or evidence of fibrosis -Request PACS images of last chest CT 2. Lung nodules -By report, lung nodules have been stable for more than 5 years which would suggest no need for further yearly surveillance -Requested images from [facility] 3. Former cigarette smoker -Former smoker with sequelae of COPD -Patient does not meet criteria for lung cancer screening based on her age and duration of smoking cessation Keely Givens MD [facility] [place] documented in this encounterProtestant Hospital10-27-2023 History of Present illness Narrative* Emilie Hayes RPFT - 06/16/2023 2:59 PM EDT PULM FUNCTION SMARTBLOCK: Provider: Ruby Prater APRN.ACCOUNT MANAGER TRAINEE Assisting Tech: Emilie Hayes RPFT Spirometry: 1 DLCO: 1 documented in this encounterProtestant Hospital10-27-2023 Miscellaneous Notes* Telephone Encounter - Fernanda Horne PA-C - 06/16/2023 1:55 PM EDT Called pt to discuss CT abd results. Informed mass noted in cecum is presumed fecal related. She isgoing to be starting Miralax today. Advised obtaining colonoscopy due to CT findings which she is agreeable to. Has pulmonary testing scheduled today. She will call GI office back once results are in. If stable from pulmonary standpoint would plan for procedure at [facility] [place]. Fernanda Horne PA-C documented in this encounterProtestant Hospital10-23-2023 Miscellaneous Notes* Telephone Encounter - Ana Hernandez Ma - 06/12/2023 6:59 PM EDT Last appointment: 11/28/22 Next appointment: n/a Pharmacy verified in Epic. Refill(s) requested: Requested Prescriptions Pending Prescriptions Disp Refills rivaroxaban (XARELTO) 20 mg tablet 90 tablet 3 Sig: Take 1 tablet by mouth daily with dinner. Order(s) pended. Please advise. Ana Hernandez Ma, CMA documented in this encounterProtestant Hospital10-04-2023 Miscellaneous Notes* Telephone Encounter - Danae Garcia - 05/24/2023 2:34 PM EDT Had a hard time scheduling the [place] appt. Called patient and gave her number to schedule * Telephone Encounter - Ruby Prater APRN.CNP - 05/23/2023 4:35 PM EDT Orders placed. Please assist in scheduling. * Telephone Encounter - Maddie Costa - 05/23/2023 1:56 PM EDT Called pt and she stated [facility] would be most convenient for her. Please assist pt with scheduling. * Telephone Encounter - Ana Mace APRN.CNP - 05/22/2023 5:13 PM EDT Sorry that message was sent before I finished it. Molly, Dara, or Kingsley have providers thatmight be more convenient for her. Ana Mace APRN.CNP * Telephone Encounter - Ana Mace APRN.CNP - 05/22/2023 5:13 PM EDT There are providers in [place] * Telephone Encounter - Dilma Gonsalez - 05/22/2023 4:21 PM EDT Patient stated she is looking for a new lung doctor. Wants to know if Dr. Rebollar can recommend someone closer for her. Said her last doctor was at [facility] and she doesn't want to have to drive all the way to [place] anymore. Please advise at [phone]. Or [phone]. documented in this encounterProtestant Hospital10-02-2023 Instructions* Patient Instructions* Fernanda Horne PA-C - 05/22/2023 11:54 AM [...] well to regulate bowels documented in this encounterProtestant Hospital10-02-2023 History of Present illness Narrative* Fernanda Horne PA-C - 05/22/2023 11:27 AM EDT CHIEF COMPLAINT: Patient presents with: Abdominal cramping: [...] somewhat with BM. Associated sx of nausea w/oemesis, bloating. Cant remember when last colon was, [...] RELIEF) 50 mcg/actuation nasal spray Use 1 Almond in each nostril twicedaily. betamethasone valerate 0.1 % cream Apply to [...] in the morning and 30 mg in theevening on Day 5, THEN 30 mg twice [...] 132/80 Pulse 70 Ht 154.9 cm (5' 1) BMI 33.44 kg/m Physical Exam Constitutional: General: [...] generalized abd, worse in RLQ). There is noright CVA tenderness, left CVA tenderness, guarding or [...] test); CT ABD/PEL -Inject, intravenously, once for 1dose.No IV access, insert saline lock prior to [...] designated per enteric contrast guidelines Dispense: 1 Each;Refill: 0 - CREATININE BLD; Future - Reports [...] test); CT ABD/PEL -Inject, intravenously, once for 1dose.No IV access, insert saline lock prior to [...] designated per enteric contrast guidelines Dispense: 1 Each;Refill: 0 - CREATININE BLD; Future 3. Abnormal weight loss - CT ABD/PEL W IVCON; Future - iv contrast (will be provided with radiology test); CT ABD/PEL -Inject, intravenously, once for 1dose.No IV access, insert saline lock prior to [...] designated per enteric contrast guidelines Dispense: 1 Each;Refill: 0 - CREATININE BLD; Future Recommended to please call office/go to ER if fever, chills, chest pain, SOB, diarrhea, nausea, emesis, worsening abdominal pain, dehydration occurs I spent a total of 20 minutes on the date of the service which included preparing to see the patient, [id number] patient care, completing clinical documentation, obtaining and/or reviewing separately obtained history, performing a medically appropriate examination, counseling and educating the pat ient/family/caregiver, ordering medications, tests, or procedures, communicating with other HCPs (not separately reported), independently interpreting results (not separately reported), communicatingresults to the patient/family/caregiver, and care coordination (not separately reported). Fernanda Horne PA-C May 22, 2023 11:56 AM documented in this encounterProtestant Hospital09-27-2023 History of Present illness Narrative* Loan Madrigal PA-C - 05/17/2023 10:10 AM EDT Pulmonary Follow-up [address] [place] [id number] Visit type: Established patient Reason for Visit: [...] Patient location: Home. This patient encounter is appropriateand reasonable under the circumstances given the patient's [...] conditions or problems, and seek emergency medical constantine atment and/or call 911 if the patient deems either necessary. The patient stated that they are currently in the [facility]. If the patient is a minor, permission has been obtained by the parent orguardian for the patient to receive medical care [...] she had repeat CT in April 2021, 09/22 ED visit for R flank pain and imaging suggesting increase in nodules.On repeat CT nodules appear unchanged from last [...] that her breathing is getting slightly worse overthe past 6 months. Feels she gets short [...] Diagnosis Date Arthritis Atrial fibrillation (CMS/HCC) ([facility]) Chronic obstructive pulmonary disease ([facility]) 08/24/2017 GERD (gastroesophageal reflux disease) Hypertension Osteoarthritis [...] Problem Relation Name Age of Onset Other (99000) Mother ROS: Review of Systems Constitutional: Negative [...] Swallow study was normal. Evaluated by Dr. Rea, was scheduled for EGD but this was cancelled. Will reach out to oDr. Rea to see if he wants to schedule [...] normal. Still c/o frequent choking with eating anddrinking. Will refer to General surgery for evaluation, possible EGD. Ambulatory referral to General Surgery No follow-ups on file. On this date, 12/10/2020 I have spent 35 minutes reviewing previous notes, test results and face to face with the patient discussing the diagnosis and importance of compliance with the treatment plan as well as documenting on the day of the visit. documented in this [facility]08-04-2023 Miscellaneous Notes* Telephone Encounter - Marjorie Redman LPN - 03/24/2023 3:12 PM EDT Patient picked up medication this morning. * Telephone Encounter - Giselle Elizondo MD - 03/23/2023 11:55 AM EDT The following approved medication requests have been transmitted electronically. Requested Prescriptions Signed Prescriptions Disp Refills carisoprodol (SOMA) 350 mg tablet 30 tablet 0 Sig: Take 1 tablet by mouth at bedtime as needed for up to 30 days. Authorizing Provider: GISELLE ELIZONDO MD * Telephone Encounter - Marjorie Redman LPN - 03/22/2023 1:47 PM EDT Pharmacy verified in [facility] Patient has been identified by name and [...] kg (183 lb) Not applicable Please advise. Marjorie Redman LPN * Telephone Encounter - Irina Pop - 03/22/2023 12:32 PM EDT Lesli Rosales is calling Giselle Elizondo MD today requesting a refill on medication . carisoprodol (SOMA) 350 mg tablet Please send to [facility] [place] documented in this encounterProtestant Hospital06-27-2023 Miscellaneous Notes* Telephone Encounter - Giselle Elizondo MD - 02/14/2023 1:16 PM EDT The following approved medication requests have been transmitted electronically. Requested Prescriptions Signed Prescriptions Disp Refills carisoprodol (SOMA) 350 mg tablet 30 tablet 0 Sig: Take 1 tablet by mouth at bedtime as needed for up to 30 days. Authorizing Provider: GISELLE ELIZONDO MD * Telephone Encounter - Aurea Loya - 02/13/2023 4:47 PM EDT Patient calling for a refill for Carisoprodol 350 mg. Med not in current refill list. documented in this encounterProtestant Hospital06-23-2023 Miscellaneous Notes* Telephone Encounter - Giselle Elizondo MD - 02/10/2023 11:50 AM EDT The following approved medication requests have been transmitted electronically. Requested Prescriptions Signed Prescriptions Disp Refills famotidine (PEPCID) 20 mg tablet 100 tablet 2 Sig: TAKE 1 TABLET BY MOUTH ONCE DAILY Authorizing Provider: GISELLE ELIZONDO MD * Telephone Encounter - Marjorie Redman LPN - 02/10/2023 8:54 AM EDT Pharmacy verified in Epic Patient has been [...] kg (183 lb) Not applicable Please advise. Marjorie Redman LPN documented in this encounterProtestant Hospital05-18-2023 Telephone encounter Note * Telephone Encounter - Berenice Slaughter - 01/05/2023 1:17 PM EDT Pt is canceled. Dr Rea is out next week. I am waiting on new date/time until I find availability that works between Dr Rea's surgery [facility] [id number] Miscellaneous Notes* Telephone Encounter - Berenice Slaughter - 01/05/2023 1:17 PM EDT Pt is canceled. Dr Rea is out next week. I am waiting on new date/time until I find availability that works between Dr Rea's surgery * Telephone Encounter - Pascale Gage - 01/05/2023 12:47 PM EDT [facility] pre-registration was calling to see if [...] a TE to Berenice. documented in this encounterSKindred Hospital [id number] Telephone encounter Note* Telephone Encounter - Pascale Gage - 01/05/2023 12:47 PM EDT [facility] pre-registration was calling to see if patient [...] Said to send a TE to Berenice. [facility] [id number] Miscellaneous Notes* Telephone Encounter - Marjorie Redman LPN - 12/30/2022 2:17 PM EDT Received 12/30/2022 from [facility]. Placed in provider's inbox for review. Route to [place] for scanning. documented in this encounterProtestant Hospital05-10-2023 Miscellaneous Notes* Telephone Encounter - Marjorie Redman LPN - 12/28/2022 10:23 AM EDT Pharmacy verified in [facility] Patient has been identified by name and [...] kg (183 lb) Not applicable Please advise. Marjorie Redman LPN * Telephone Encounter - Zina Huffman - 12/28/2022 10:08 AM EDT Patient has been identified by name and date of : Yes Requested Prescriptions Pending Prescriptions Disp Refills carisoprodol (SOMA) 350 mg tablet 30 tablet 0 Sig: Take 1 tablet by mouth at bedtime as needed for up to 30 days. RX INSTRUCTIONS: Patient aware RX will be sent to pharmacy. No need to notify patient. Zina Huffman documented in this encounterProtestant Hospital05-09-2023 Miscellaneous Notes* Telephone Encounter - Zulma Senior MA - 12/27/2022 10:27 AM EDT Last appointment: 11-28-22 Next appointment: na Pharmacy verified in Epic. Refill(s) requested: Requested Prescriptions Pending Prescriptions Disp Refills hydroCHLOROthiazide 12.5 mg capsule [Pharmacy Med Name: hydroCHLOROthiazide 12.5 MG Oral Capsule] 90 capsule 3 Sig: TAKE 1 CAPSULE BY MOUTH ONCE DAILY Order(s) pended. Please advise. Zulma Senior MA, [facility] documented in this encounterProtestant Hospital04-28-2023 Telephone encounter Note * Telephone Encounter - Berenice Slaughter - 12/16/2022 11:37 AM EDT Pt scheduled 01/11/23 at 12:00, 11:00 arrival Pt aware she needs to speak to her ordering physician in regards to her blood thinner. [facility] [id number] Miscellaneous Notes* Telephone Encounter - Berenice Slaughter - 12/16/2022 11:37 AM EDT Pt scheduled 01/11/23 at 12:00, 11:00 arrival Pt aware she needs to speak to her ordering physician in regards to her blood thinner. * Telephone Encounter - Berenice Slaughter - 12/15/2022 2:05 PM EDT Spoke to patient. She was at [facility] and will call me back. documented in this encounterSKindred Hospital [id number] Telephone encounter Note* Telephone Encounter - Berenice Kelby Slaughter - 12/15/2022 2:05 PM EDT Spoke to patient. She was at [facility] and will call me back. [facility] [id number] History of Present illness Narrative* Giselle Elizondo MD - 11/28/2022 11:02 AM EDT CHIEF COMPLAINT Patient presents with: 6 Month [...] 129/68 Pulse 68 Ht 154.9 cm (5' 1) Wt 80.3 kg (177 lb) SpO2 92% [...] LYMPH % 20 - 30 % 20.7 [place]% 7.5 [place]% 0.9 Baso% 0.6 Immature Gran [...] that this documentation has been prepared under thedirection and in the presence of Giselle Elizondo M.D. Electronically Signed: Carlos Burnham. November 28, 2022 11:03 AM Provider Attestation: Giselle Jeter MD, personally performed the services described in this documentation. All medical record entries made by the scribe were at my direction and in my presence. I have reviewed the chart and discharge instructions (if applicable) and agree that the record reflects my personal performance and is accurate and complete. Electronically Signed: Giselle Elizondo MD November 28, 2022 4:21 PM documented in this encounterProtestant Hospital04-04-2023 Miscellaneous Notes* Telephone Encounter - Marjorie Redman LPN - 11/22/2022 9:06 AM EDT Patient verbalized understanding. * Telephone Encounter - Giselle Elizondo MD - 11/21/2022 4:44 PM EDT Ms rosales The red blood count is a little high as before. Potassium mildly low, otherwise electrolytes/ kidney function OK . Hba1c is in non diabetes range. Lipid profile shows well controlled LDL bad cholesterol Increase on potassium rich foods. Giselle Elizondo MD documented in this encounterProtestant Hospital03-29-2023 Procedure note* DALILA Rascon - 11/16/2022 1:00 PM EDT Images from the original note were not included. SPEECH LANGUAGE PATHOLOGY MODIFIED BARIUM SWALLOW STUDY Patient Name: Lesli Rosales : 1940 Today's Date: 11/16/2022 Visit Info / [facility] General Information Radiologist: Radha Type of Study: [...] ENB CHOLECYSTECTOMY COLONOSCOPY FINGER SURGERY HERNIA REPAIR 1960' umbilical SHOULDER SURGERY Right SPINE SURGERY 1985 TOTAL ABDOMINAL HYSTERECTOMY UPPER GASTROINTESTINAL ENDOSCOPY Subjective General Chart Reviewed: Yes Subjective Subjective: Pt stated she has been coughing with liquids and solids for a couple of years now. She notices that if she tips her head up while drinking coughing occurs more often. Pt with hx of hiatalhernia and had her esophagus stretched a long [...] referral. Plan & Recommendations Recommendations/Treatment: Recommendations/Treat Requires RESPIRATORY THERAPY AIDE Intervention: No D/C Recommendations: No follow up therapy recommended post discharge Solid consistency: Regular Liquid consistency: Thin Liquid administration via: Spoon, Cup Medication administration: Meds in puree Supervision: Independent Compensatory Swallowing Strategies : Small bites/sips,Swallow 2 times per bite/sip Education Given: diet recommendations, discussed menu selection options such as increasing moisturein foods. Education Response: Verbalizes understanding Prognosis: Prognosis Prognosis for safe diet advancement: excellent Barriers to reach goals: age, severity of dysphagia Individuals consulted Consulted and agree with results and recommendations: Patient The patient was educated regarding the general results and recommendations of this evaluation. Therapy Time RESPIRATORY THERAPY AIDE Individual Minutes Time In: 1300 Time Out: 1325 Minutes: 25 DALILA Rascon [facility]igh [id number] Procedure note* DALILA Rascon - 11/16/2022 1:00 PM EDT Images from the original note were not included. SPEECH LANGUAGE PATHOLOGY MODIFIED BARIUM SWALLOW STUDY Patient Name: Lesli Rosales : 1940 Today's Date: 11/16/2022 Visit Info / [facility] General Information Radiologist: Radha Type of Study: [...] 1959' umbilical SHOULDER SURGERY Right SPINE SURGERY 1984 TOTAL ABDOMINAL HYSTERECTOMY UPPER GASTROINTESTINAL ENDOSCOPY Subjective General Chart Reviewed: Yes Subjective Subjective: Pt stated she has been coughing with liquids and solids for a couple of years now. She notices that if she tips her head up while drinking coughing occurs more often. Pt with hx of hiatalhernia and had her esophagus stretched a long [...] referral. Plan & Recommendations Recommendations/Treatment: Recommendations/Treat Requires RESPIRATORY THERAPY AIDE Intervention: No D/C Recommendations: No follow up therapy recommended post discharge Solid consistency: Regular Liquid consistency: Thin Liquid administration via: Spoon, Cup Medication administration: Meds in puree Supervision: Independent Compensatory Swallowing Strategies : Small bites/sips,Swallow 2 times per bite/sip Education Given: diet recommendations, discussed menu selection options such as increasing moisturein foods. Education Response: Verbalizes understanding Prognosis: Prognosis Prognosis for safe diet advancement: excellent Barriers to reach goals: age, severity of dysphagia Individuals consulted Consulted and agree with results and recommendations: Patient The patient was educated regarding the general results and recommendations of this evaluation. Therapy Time RESPIRATORY THERAPY AIDE Individual Minutes Time In: 1300 Time Out: 1325 Minutes: 25 DALILA Rascon documented [facility] this [facility]03-21-2023 Miscellaneous Notes* Telephone Encounter - Marjorie Redman LPN - 11/08/2022 9:36 AM EDT Patient verbalized understanding. * Telephone Encounter - Giselle Elizondo MD - 11/07/2022 1:57 PM EDT Labs: Lipid: Triglycerides within optimal range. HDL good cholesterol is in acceptable range. This can be improved with exercise. Target for HDL cholesterol is >45 mg/dl. In low to moderate risk patients, LDL bad cholesterol target is less than 100. Excellent result. Hba1c is in near normal range. Giselle Elizondo MD documented in this encounterProtestant Hospital03-15-2023 Miscellaneous Notes* Telephone Encounter - Ana Mace APRN.CNP - 11/02/2022 4:12 PM EDT That's fine, she can have the A1C and lipid panel drawn at another time when fasting. Ana Mace APRN.MARJ * Telephone Encounter - Maddie Costa - 11/02/2022 4:05 PM EDT Called lab. They are not able to add d/t sample only being stable 48 hours after draw. Called and informed pt of resulted labs. Pt indicated understanding and stated she did not know she was supposedto be fasting so she did not have the lipid panel drawn. * Telephone Encounter - Dilma Monroe Pss - 11/01/2022 3:35 PM EDT Patient called to get lab results. Please call back at [phone]. * Telephone Encounter - Giselle Elizondo MD - 11/01/2022 9:55 AM EDT Lab results Potassium a little low. Kidney function OK, liver enzymes OK Glucose over 125. CBC stable. Will check with lab to see if Hba1c can be added to rule out diabetes. Telephone on 11/01/22 HGB A1C Giselle Elizondo MD documented in this encounterProtestant Hospital03-10-2023 Miscellaneous Notes* Telephone Encounter - Christine Lua - 10/28/2022 12:17 PM EST 2nd attempted call. * Telephone Encounter - Marjorie Redman LPN - 10/26/2022 3:26 PM EST Patients voicemail has not been set up. * Telephone Encounter - Giselle Elizondo MD - 10/26/2022 3:22 PM EST Appt. Lab prior please The following approved medication requests have been transmitted electronically. Requested Prescriptions Signed Prescriptions Disp Refills carisoprodol (SOMA) 350 mg tablet 30 tablet 0 Sig: take 1 tablet by mouth twice a day if needed for up to 30 DAYS Authorizing Provider: GISELLE ELIZONDO MD * Telephone Encounter - Kaitlyn Doe Ma - 10/26/2022 2:47 PM EST Pharmacy verified in Epic Patient has been [...] advise. Kaitlyn Doe Ma documented in this encounterProtestant Hospital03-09-2023 History of Present illness Narrative* Miguel Ángel Rea MD - 10/27/2022 3:30 PM EST Images from the original note were not included. [facility] Advanced Laparoscopic Surgery Patient Name: Lesli Rosales Date: 10/28/22 Referring Physician: Loan Madrigal* HPI: Lesli Rosales is a 82 y.o. female who presents with long history of persistent choking on liquids and foods as well as dysphagia with liquids and foods. She states that her symptoms have been ongoing for several years, however recently followed up with her tar roofer who recommended further evaluation of her symptoms. She states that primarily when she drinks from a [place], the liquid seems to go down the wrong tube and causes a choking and coughing response. She states that this to occurs with solid food intake as well. Additionally, she describes dysphagia in her lower chest with most p.o. intake including solids and liquids. Denies regurgitation, heartburn, reflux-has been takingdaily Pepcid for several years which controls any heartburn. She also describes episodes of gas bloat which she attributes to a hiatal hernia, discomfort that is relieved with belching. Otherwise denies chest/abdominal pain and changes with her bowel movements. Underwent esophagram which was overall unremarkable. Reports a history of EGD with empiric dilation for the symptoms in the past, howeverdoes not remember when her last EGD was. PMH otherwise significant for pulmonary fibrosis, psoriatic arthritis-on MTX, CONCEPCION, A-fib-on Xarelto. PSH significant for appendectomy, cholecystectomy, 2 umbilical hernia repairs with mesh, pelvic floor repair x2. Former smoker. Notes reviewed: -Otoniel Madrigal MAINFRAME SYSTEMS ENGINEER, 10/20/2022 Data reviewed: -Esophagram, 10/14/2022, personally interpreted, grossly unremarkable I personally reviewed the patient intake form with the patient. The ROS is negative except for whatis listed in HPI. PMHx: Past Medical History: Diagnosis Date Arthritis Atrial fibrillation (CMS/HCC) (HCC) Chronic obstructive pulmonary disease (HCC) 08/24/2017 GERD (gastroesophageal reflux disease) Hypertension Osteoarthritis Psoriasis PSHx: Past Surgical History: Procedure Laterality Date ABDOMINAL SURGERY bladder bowel all dropped APPENDECTOMY BLADDER SUSPENSION BRONCHOSCOPY (HISTORICAL) 06/28/2017 Bronch ENB CHOLECYSTECTOMY COLONOSCOPY FINGER SURGERY HERNIA REPAIR 1959' umbilical SHOULDER SURGERY Right SPINE SURGERY 1984 TOTAL ABDOMINAL HYSTERECTOMY UPPER GASTROINTESTINAL ENDOSCOPY PFMHx: Family History Adopted: Yes Problem Relation Name Age of Onset Other (74862) Mother ALL: No Known Allergies MEDS: Current Outpatient Medications Medication Sig Dispense Refill albuterol 108 (90 Base) MCG/ACT inhaler inhale 2 puffs by mouth and INTO THE LUNGS four times a dayif needed 18 g 11 apremilast (Otezla) 30 MG tablet Take by mouth. Do not crush, chew, or split tablets. atenolol (Tenormin) 25 MG tablet budesonide-formoterol (Symbicort) 160-4.5 MCG/ACT inhaler Inhale 2 puffs in the morning and 2 puffsin the evening. Rinse mouth with water after use to reduce aftertaste and incidence of candidiasis.Do not swallow.. 3 each 3 budesonide-formoterol (Symbicort) 80-4.5 MCG/ACT inhaler Inhale 2 puffs 2 times daily. famotidine (Pepcid) 20 MG tablet Take 20 mg by mouth in the morning. guaiFENesin (Mucinex) 600 MG 12 hr tablet Take 2 tablets (1,200 mg) by mouth 2 times daily. Do not crush, chew, or split. 120 tablet 11 hydroCHLOROthiazide (Microzide) 12.5 MG capsule ipratropium (Atrovent) 0.02 % nebulizer solution Take 2.5 mL (0.5 mg) by nebulization every 6 hoursas needed for wheezing or shortness of breath. 75 mL 11 levalbuterol (Xopenex) 0.63 MG/3ML nebulizer solution Take 1 ampule by nebulization as needed for wheezing or shortness of breath. 72 mL 5 tiotropium (Spiriva) [address] 1 capsule (18 mcg) into inhaler and inhale in the morning. 30 capsule 11 No current facility-administered medications for this visit. SOCIAL Hx: Social History Socioeconomic History Marital status: Spouse name: Not on file Number of children: Not on file Years of education: Not on file Highest education level: Not on file Occupational History Not on file Tobacco Use Smoking status: Former Packs/day: 1.00 Years: 17.00 Pack years: 17.00 Types: Cigarettes Quit date: 05/29/1976 Years since quittin.4 Smokeless tobacco: Never Vaping Use Vaping Use: Never used Substance and Sexual Activity Alcohol use: No Drug use: No Sexual activity: Not on file Other Topics Concern Not on file Social History Narrative Not on file Social Determinants of Health Financial Resource Strain: Not on file Food Insecurity: Not on file Transportation Needs: Not on file Physical Activity: Not on file Stress: Not on file Social Connections: Not on file Intimate Partner Violence: Not on file Housing Stability: Not on file ROS: General: negative for - chills, fatigue, fever or malaise Gastrointestinal: Positive for dysphagia; negative for - change in bowel habits, hemoptysis, hematemesis, hematochezia, nausea, vomiting, diarrhea, constipation, weight loss DIAGNOSTIC EVALUATION: as described above Physical Examination: BP 132/79 (BP Location: Left arm, Patient Position: Sitting, BP Cuff Size: Adult) Pulse 68 Temp 36.2 C (97.1 F) (Temporal) Ht 5' 1 (1.549 m) Wt 180 lb (81.6 kg) BMI 34.01 kg/m She stands Height: 5' 1 (154.9 cm) tall with a weight of Weight: 180 lb (81.6 kg) , resulting in aBMI of Body mass index is 34.01 kg/m .. General: The patient is awake, alert, and oriented, and is in no apparent distress; normal affect Respiratory: Normal effort, no gross abnormal breath sounds Abdomen: Appropriate girth, non-distended, soft, no masses or hepatosplenomegaly Hernia: No obvious hernias found on exam Extremities: Ambulatory without assistance, no obvious deformities Skin: Warm, dry, intact; no obvious lesions or discoloration Assessment/Plan Lesli was seen today for new patient. Diagnoses and all orders for this visit: Choking, sequela (Primary) - FL modified barium with video and speech; Future Dysphagia, unspecified type - FL modified barium with video and speech; Future Lesli Rosales is a 82 y.o. female who presents with episodes of choking and dysphagia. We will proceed with the following diagnostic evaluation: HEATHER. Discussed the possibility of proceeding with an EGD and also manometry, however she wishes to put this off for now. We will call with final results and options for further evaluation. The patient is aware of the risks and benefits of EGD with biopsy including, but not limited to, missed lesions, the possibility of benign or malignant findings, perforation of the esophagus/stomach/duodenum or surrounding structures, bleeding, pain, as well as anesthetic complications related to the conscious sedation provided by the department of anesthesia. If the patient is undergoing Harrington study, stop all PPIs 7 days prior to Harrington study. Stop all H2 blockers 2 days prior to Harrington study. Antacids such as Gaviscon, Maalox, Lakeisha-Goshen, Mylanta, or Tums can be taken up until midnight the day before Harrington study. If the patient is undergoing manometry they must refrain from opioids for 48 hours prior to procedure. The above tests have been described and explained to the patient and the patient is in agreement toundergo the above testing. All questions were addressed with the patient to the patients satisfaction. I personally performed the evaluation and management of Lesli Rosales in the development of atreatment plan for this patient. I personally interviewed the patient and performed an individual physical examination. In addition, I discussed the patient's condition and treatment options with them. I have also reviewed and agree with the past medical, family and social history unless otherwise noted. All of the patient's questions were answered. Patient Care Team: Giselle Elizondo as PCP - General (Family Medicine) se documented in this [facility]03-09-2023 Miscellaneous Notes* Telephone Encounter - Marjorie Redman LPN - 10/27/2022 2:39 PM EST Voicemail not set up. No answer * Telephone Encounter - Giselle Elizondo MD - 10/26/2022 3:18 PM EST No recent labs, order place for complete metabolic and lipid Refill on 10/26/22 CBC COMP METABOLIC PANEL LIPID PANEL BASIC TSH BLD 1 fill only The following approved medication requests have been transmitted electronically. Requested Prescriptions Signed Prescriptions Disp Refills hydroCHLOROthiazide (HYDRODIURIL, ESIDRIX) 12.5 mg capsule 90 capsule 0 Sig: Take 1 capsule by mouth once daily. Authorizing Provider: GISELLE ELIZONDO MD * Telephone Encounter - Marjorie Redman LPN - 10/26/2022 12:40 PM EST Patient had medication filled in July by a previous provider. Patient taking the HCTZ 12.5 mg daily * Telephone Encounter - Janneth [facility] - 10/26/2022 12:13 PM EST Patient is calling back, please call to discuss provider message , she will await your call at phone [phone] which is home phone or cell at [phone] Electronically signed by Janneth [facility] [place] at 10/26/2022 12:15 PM EST * Telephone Encounter - Marjorie Redman LPN - 10/26/2022 11:56 AM EST No answer. Voice mail on both phones not set up yet. * Telephone Encounter - Ana Mace APRN.CNP - 10/26/2022 9:30 AM EST Please call patient to clarify if she's still taking this and what dose. It hasn't been prescribed since 2019. Ana Mace APRN.CNP * Telephone Encounter - Maddie Costa - 10/26/2022 8:33 AM EST Refill request from [facility] for hydrochlorothiazide capsules. Request does not specify strength andpt has 2 different strengths of requested drug. Please advise. documented in this encounterPro[facility]03-[facility]23 History of Present illness Narrative* Loan Madrigal PA-C - 10/20/2022 2:10 PM EST Pulmonary Follow-up [address] [place] [id number] Visit type: Established patient Reason for Visit: Follow-up (COPD, dyspnea) Patient was seen today via Telehealth by agreement and consent in light of the current COVID-19 pandemic. I used the following Telehealth technology: Audio capability only. Total length of call 15 minutes. The patient was offered and advised video for a more comprehensive evaluation, but the patient declined or was unable to use video. Patient location: Home. This patient encounter is appropriateand reasonable under the circumstances given the patient's [...] conditions or problems, and seek emergency medical constantine atment and/or call 911 if the patient deems either necessary. The patient stated that they are currently in the [facility]. If the patient is a minor, permission has been obtained by the parent orguardian for the patient to receive medical care at this visit. History of Present Illness: LAWRENCE Rosales is a 82 y.o. female patient with significant PMH of pulm fibrosis, COPD, GERD, HTN, and afib being seen for follow-up. PMH of lung nodules since 2011 Hx asbestos exposure- on methotrexate for psoriatic arthritis (PET 11/15/12, biopsy 2012 and agian 06/28/17). Lung nodules remain stable for > than 5 years, she had repeat CT in April 2021, 2/2 ED visit for R flank pain and imaging suggesting increase in nodules.On repeat CT nodules appear unchanged from last year. She is on supplemental O2 at 2 L/min as needed throughout the day. She was last seen on 06/02/2021 by Matheus Hoover CNP and was doing well at that time. She was last seen on 08/05/2022 and was feeling worse, c/o more shortness of breath over the past 2-3 months. Gets winded walking down her driveway, walking room to room in her house. She is coughingmore than normal for the past few months. Also c/o difficulty swallowing x several years. States that she sometimes chokes when she drinks carbonated beverages, or when she eats. She feels the same today. She is still c/o exertional dyspnea. Gets winded walking to her mailbox, especially if it is windy outside. She does have a pulse ox at home but does not use it. Remains on supplemental O2 at 2 L/gokul needed throughout the day. She does well when she is resting, or walking at a normal pace. She does cough intermittently, worse if she chokes with eating. She does occasionally expectorate large amount of clear sputum. Some difficulty expectorating sputum. She does wheeze intermittently when she get very winded. Report compliance with Symbicort and Spiriva. Uses her nebulizer once a day. Uses her Albuterol once a day as well. CT Lung Screening/CT Chest-- 05/17/21 stable lung [...] capacity consistent with COPD. Normal lung volumes Home medications: Symbicort, Spiriva, ipratropium nebs Tobacco- cigarettes 17 pyh quit 1975 [facility] [...] Former Packs/day: 1.00 Years: 17.00 Pack years: 17.00 Types: Cigarettes Quit date: 05/29/1976 Years since quittin.4 Smokeless tobacco: Never Vaping Use Vaping Use: Never used Substance and Sexual Activity Alcohol use: No Drug use: No Family History: Family History Adopted: Yes Problem Relation Name Age of Onset Other (67547) Mother ROS: Review of Systems Constitutional: Negative for chills, fatigue and fever. Respiratory: Positive for cough and shortness of breath. Negative for chest tightness and wheezing. Cardiovascular: Negative for chest pain, palpitations and leg swelling. Gastrointestinal: Negative for diarrhea, nausea and vomiting. Psychiatric/Behavioral: Negative for sleep disturbance. All other systems reviewed and are negative. Medications: @MEDCMED@ Allergies: No Known Allergies Vital Signs: There were no vitals taken for this visit. Physical Exam: Physical Exam Constitutional: Appearance: Normal appearance. HENT: Head: Normocephalic and atraumatic. Eyes: Extraocular Movements: Extraocular movements intact. Pupils: Pupils are equal, round, and reactive to light. Cardiovascular: Rate and Rhythm: Normal rate and regular rhythm. Heart sounds: Normal heart sounds. Pulmonary: Effort: Pulmonary effort is normal. Breath sounds: Normal breath sounds. Musculoskeletal: Right lower leg: No edema. Left lower leg: No edema. Neurological: Mental Status: She is alert and oriented to person, place, and time. Mental status is at baseline. Psychiatric: Mood and Affect: Mood normal. Speech: Speech normal. Behavior: Behavior normal. Impression/Plan Diagnosis Plan 1. Chronic obstructive pulmonary disease, [...] normal. Still c/o frequent choking with eating anddrinking. Will refer to General surgery for evaluation, possible EGD. Ambulatory referral to General Surgery 3. Lung nodule Stable for >[address] chest wo IV contrast 4. 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 Will recheck imaging due to progression of SOB, change in PFT's. - CT chest wo IV contrast Follow up in about 6 weeks (around 12/01/2022) for COPD f/u, with CT chest. On this date, 12/10/2020 I have spent 35 minutes reviewing previous notes, test results and face to face with the patient discussing the diagnosis and importance of compliance with the treatment plan as well as documenting on the day of the visit. documented in this encounterSKindred Hospital [id number] Telephone encounter Note* Telephone Encounter - Trudy Marie MA - 09/16/2022 11:34 AM EST Called mobile #, Unable to leave msg for pt. V/m box hasn't been set up yet. Called home #, pt notified. [facility] [id number] Miscellaneous Notes* Telephone Encounter - Trudy Marie MA - 09/16/2022 11:34 AM EST Called mobile #, Unable to leave msg for pt. V/m box hasn't been set up yet. Called home #, pt notified. * Telephone Encounter - Sonya Hitchcock MA - 08/31/2022 2:50 PM EST Unable to left vm. Pt can call central scheduling to schedule FL esophagus barium swallow and complete PFT study at [phone]. * Telephone Encounter - Claudette Espitia - 08/31/2022 2:22 PM EST Name of caller: Lesli Contact phone number: [phone] Relationship to Patient: patient Provider: Dr. Garcia Practice: [facility] [place] Chief Complaint/Reason for Call: Pt states that she was suppose to have some tests scheduled by theoffice months ago and never heard anything back. Pt states that she would like to receive a cb to discuss what she needs to do and schedule for the tests. Please advise. Best time of day caller can be reached: Any Patient advised that office/PCP has 24-48 business hours to return their call: No documented in this [facility]01-11-2023 Telephone encounter Note* Telephone Encounter - Sonya Hitchcock MA - 08/31/2022 2:50 PM EST Unable to left vm. Pt can call central scheduling to schedule FL esophagus barium swallow and complete PFT study at [phone]. [facility] [id number] Miscellaneous Notes* Telephone Encounter - Sonya Hitchcock MA - 08/31/2022 2:50 PM EST Unable to left vm. Pt can call central scheduling to schedule FL esophagus barium swallow and complete PFT study at [phone]. * Telephone Encounter - Claudette Espitia - 08/31/2022 2:22 PM EST Name of caller: Lesli Contact phone number: [phone] Relationship to Patient: patient Provider: Dr. Garcia Practice: [facility] [place] Pulmonary Chief Complaint/Reason for Call: Pt states that she was suppose to have some tests scheduled by theoffice months ago and never heard anything back. Pt states that she would like to receive a cb to discuss what she needs to do and schedule for the tests. Please advise. Best time of day caller can be reached: Any Patient advised that office/PCP has 24-48 business hours to return their call: No documented in this encounterSKindred Hospital [id number] Telephone encounter Note* Telephone Encounter - Claudette Espitia - 08/31/2022 2:22 PM EST Name of caller: Lesli Contact phone number: [phone] Relationship to Patient: patient Provider: Dr. Garcia Practice: [facility] [place] Pulmonary Chief Complaint/Reason for Call: Pt states that she was suppose to have some tests scheduled by theoffice months ago and never heard anything back. Pt states that she would like to receive a cb to discuss what she needs to do and schedule for the tests. Please advise. Best time of day caller can be reached: Any Patient advised that office/PCP has 24-48 business hours to return their call: No [facility] [id number] Miscellaneous Notes* Telephone Encounter - Marty Mcdonald Pss - 08/09/2022 4:26 PM EST Patient returned call and message was relayed. Patient understands and will await the provider's decision. * Telephone Encounter - Giselle Elizondo MD - 08/09/2022 2:23 PM EST Soma is considered high risk med, especially [...] 30 days. Authorizing Provider: GISELLE ELIZONDO MD * Telephone Encounter - Zina Armida - 08/09/2022 12:06 PM EST Patient has been identified by name and date of : Yes Requested Prescriptions Pending Prescriptions Disp Refills carisoprodol (SOMA) 350 mg tablet 5 Sig: Take 1 tablet by mouth twice daily as needed. RX INSTRUCTIONS: Patient aware RX will be sent to pharmacy. No need to notify patient. Zina Huffman documented in this encounterProtestant Hospital11-22-2022 Miscellaneous Notes* Telephone Encounter - Allyson Maradiaga APRN.CNP - 07/12/2022 10:25 AM EST Birthday verified with patient over the phone. [...] after symptoms have improved. documented in this encounterProtestant Hospital11-21-2022 History of Present illness Narrative* Allyson Maradiaga APRN.CNP - 07/11/2022 3:32 PM EST This note was created using NoteWriter. Subjective Lesli Rosales is a 82 year old female. HPI by patient: Lesli Rosales is a 82 year old presenting to the office with the complaint of viral symptoms. Started this morning with the headache. States I just need antibiotics to help with this- points to left maxillary area. History of [...] (HCC) Date Noted: 07/05/2022 Chronic atrial fibrillation (HCC) Date Noted: 07/05/2022 Essential hypertension Date Noted: 07/05/2022 Psoriasis, unspecified Date Noted: 07/05/2022 Chronic midline low back pain without sciatica Date Noted: 07/05/2022 Psoriatic arthritis (HCC) Date Noted: 07/05/2022 Resolved Ambulatory Problems No Resolved Ambulatory Problems Past Medical History: No date: A-fib (HCC) No date: Chronic obstructive pulmonary disease (COPD) (HCC) No date: Hypertension No date: Psoriasis Review of Systems Constitutional: Negative. HENT: Positive for sinus pressure and sinus pain. Eyes: Negative. Respiratory: Positive for cough and shortness of breath. Cardiovascular: Negative. Gastrointestinal: Negative. Endocrine: Negative. Genitourinary: Negative. Musculoskeletal: Negative. Skin: Negative. Neurological: Positive for headaches. Hematological: Negative. Objective BP 155/79 Pulse 66 Temp 36.7 C (98.1 F) Resp 16 Ht 154.9 cm (5' 1) Wt 83 kg (183 lb) SpO2 91% [...] isolation in the interim. Will call with result.Should you be positive and want outpatient covid [...] of dehydration, fever greater than 102 F thatis not responding to Tylenol or ibuprofen (Motrin, [...] summary. The patient is agreeable to this planof care and follow-up instructions have been explained in detail. The patient has received these instructions in written format and have expressed an understanding of the after visit summary. Medical Decision Making: Level: 3 - Low I spent a total of 20 minutes on the date of the service which included preparing to see the patient, [id number] patient care, completing clinical documentation, obtaining and/or reviewing separately obtained history, performing a medically appropriate examination, counseling and educating the pat ient/family/caregiver, and ordering medications, tests, or procedures. This patient encounter involved the screening or treatment of novel coronavirus infection (COVID-19). documented in this encounterProtestant Hospital11-21-2022 Instructions* Patient Instructions* Allyson Maradiaga APRN.CNP - 07/11/2022 3:32 PM [...] isolation in the interim. Will call with result.Should you be positive and want outpatient covid [...] of dehydration, fever greater than 102 F thatis not responding to Tylenol or ibuprofen (Motrin, Advil), drooling, difficulty swallowing, difficulty breathing, shortness of breath, chest pain, evidence of airway compromise (tripod position, neck extension, retractions), seizures, changes in mental status, or other concerns. documented in this encounterProtestant Hospital11-17-2022 Miscellaneous Notes* Telephone Encounter - Maddie Costa - 07/07/2022 4:08 PM EST Letter placed in outgoing mail. * Telephone Encounter - Giselle Elizondo MD - 07/07/2022 1:23 PM EST Letter printed. Please send. Giselle Elizondo MD * Telephone Encounter - Marjorie Redman LPN - 07/06/2022 10:55 AM EST Patient is agreeable with this weight. * Telephone Encounter - Giselle Elizondo MD - 07/06/2022 10:08 AM EST I generally advise to try to lose about 10-15% of current body weight which would put her goal at about 160 lb. Does that sound good to her? Will do a letter for her but don't want to over or undershoot her expectations too much . Giselle Elizondo MD * Telephone Encounter - Dania Cruz Pss - 07/05/2022 2:40 PM EST Lesli is going to a facility called [facility] For the program she needsa letter from her PCP with a healthy weight goal. It should be on [employer] Letterhead with Dr. Elizondo's signature. The letter can be mailed to Lesli. documented in this encounterProtestant Hospital11-15-2022 History of Present illness Narrative* Giselle Elizondo MD - 07/05/2022 10:00 AM EST CHIEF COMPLAINT Patient presents with: Establish Care: [...] low back pain. Patient is managed on [place]. She currently follows pain management and has been for 5 years. Afib Patient has been seeing a builder beam. adherent to current regimen without side effects from medication. No current symptoms. Patient notes that she feels that she is unable to breathe at times. 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 She is SOB on exertion. Health Maintenance [...] 126/85 Pulse 61 Ht 154.9 cm (5' 1) Wt 83.5 kg (184 lb) BMI 34.77 [...] obstructive pulmonary disease, unspecified COPD type (HCC) Comment: patient is often SOB Plan: continue [...] tablet (L40.9) Psoriasis, unspecified (L40.50) Psoriatic arthritis (HCC) Comment: well controlled Plan: continue on current [...] Signed: Giselle Elizondo MD July 05, 2022 1:56PM documented in this encounterProtestant Hospital09-22-2022 Miscellaneous Notes* Telephone Encounter - Ana Mace APRN.ACCOUNT MANAGER TRAINEE - 05/12/2022 11:59 AM EDT I am happy to see her, but I will not be filling any controlled substance medications for her during this appointment. She will need to see Dr. Elizondo for discussion about that medication. Ana Mace APRN.MARJ * Telephone Encounter - Chloe Noriega - 05/12/2022 11:29 AM EDT Lesli is all scheduled now for next week with Ana. Chloe Noriega * Telephone Encounter - Marjorie Redman LPN - 05/12/2022 11:07 AM EDT Patient would like a written script to take to dentist stating this information. Patient requesting a refill on Soma. Patient informed that medication can not be filled until she is seen in the office. Patient agreeable to a sooner appt with MARJ * Telephone Encounter - Giselle Elizondo MD - 05/11/2022 5:30 PM EDT Typically we advise holding Xarelto for 3 days. Giselle Elizondo MD * Telephone Encounter - Robyn Ortiz [facility] - 05/10/2022 4:04 PM EDT Lesli Rosales is calling No Pcp; she is scheduled to establish care with Dr. Elizondo but has never seen him; scheduled on 07/05/22. She stated her current doctor left, and the entire office is closed. She is having a dental procedure and needs to know how many days before she is having a toothextraction should she stop the Xarelto medication? She is insisting this message is sent to Dr. Elizondo. Please call her. Patient has been identified by name and birthdate. Duration of symptoms: N/A Person calling: self Call patient at: at home [phone] (home) [phone] (cell) Was an appointment scheduled: No Closing statement: Results or non-symptom based questions: Thank you for calling [facility], your call will be returned within the next business day. Robyn Ortiz [facility] Dis[facility] Patient Education 11/06/2021 10:32:18 5 - [facility] Post-op Instruction 03/2017 (75442) [facility] Post-operative Instructions PLEASE FOLLOW [facility] POST-OP INSTRUCTIONS GIVEN WATCH FOR SIGNS OF INFECTION: call the office ([phone]) if experencing any of the following: (Usually [...] on your follow up instructions. Form: 338A ([id number]) R: 12/25 Follow Up Care 11/02/2021 14:03:08 With:VIBHA RAMÍREZ PA-C, Orthopedic, Orthopedic, Orthopedic Address: [facility] [address] [place] [id number]- When:11/19/2021 10:45:00 Comments:This is your post-op appointment. With:[facility] Address: [address] [place] [phone] When:11/22/2021 10:30:00 Comments:This is your first physical therapy appointment. Follow-up as scheduled. [facility] 03-16-2022 Hospital Discharge instructions Patient Education 11/03/2021 11:06:38 Humerus Fracture Treated With Immobilization, Dzth-fz-Xdwg Humerus Fracture Treated With Immobilization The humerus [...] arm heals enough for you to begin cabgk-pp-fnvlib exercises. You may also be prescribed pain [...] doctor says that it is safe. Do vkyth-bl-jsanco exercises only as told by your doctor. General instructions Do not put pressure on any part of the cast or splint until it is fully hardened. This may take many hours. Do not use any products that contain nicotine or tobacco, such as cigarettes, e- cigarettes, and chewing tobacco. These can delay bone healing. If you need help quitting, ask your doctor. Take hywy-bwx-wxjjtcl and prescription medicines only as told by your doctor. Ask your doctor if the medicine you are taking can cause trouble pooping (constipation). You may need to take steps to prevent or treat trouble pooping: ?Drink enough fluid to keep your pee (urine) pale yellow. ?Take xfoz-fia-rzoiidu or prescription medicines. ?Eat foods that are [...] 01/23/2009 Document Revised: 04/08/2019 Document Reviewed: 04/08/2019 [employer] Patient Education 2020 [employer] Follow Up Care 09/28/2021 13:30:21 With:VIBHA RAMÍREZ PA-C, Orthopedic, Orthopedic, Orthopedic Address: [facility] [address] [place] [address] [place] [id number]- When:11/19/2021 10:45:00 Comments:This is your post-op appointment. [facility] as scheduled. [facility] Address: [address] [place] [phone] When:11/22/2021 10:30:00 Comments:This is your first physical therapy appointment. Follow-up as scheduled. [facility] 03-15-2022 Evaluation + Plan noteExtracted from: Title:History and Physical Author:RUBY MARIE APRN-ACCOUNT MANAGER TRAINEE Date:11/02/21 1. Humerus fracture 2. Adverse effect of [...] Diet Order Intake and Output Future Appointments [facility] Discharge summary Author [facility] Note Date/Time January 01, 2025 1:26p [facility] Medical Records Department [address] [place] [id number] Instructions for Home/Discharge Instructions 01/01/25 1318 MR#: [id number] Acct: [id number] Name: LESLI ROSALES Rep #:[id number] : [id number] 84 From: Goldy Warren DO PCP: SILVIA GUTHRIE Status:ADM IN Discharge Instructions Diet Discharge Diet: No restrictions DC O2, CPAP, BIPAP needs Home O2 Discharge instructions: No Dressing / Incision Discharge Activity: - (Do not twist or bend, do not lemon picker any object heavier than a gallon of milk) Weight Bearing Status: Full weight bearing Follow Up Care Test Results: Test results from this visit will be discussed in further detail at your follow- up appointment, if applicable. Discharge Plan Admission Admit Date/Time: 12/24/24 19:55 Primary Reason for Your Visit: L2 burst fracture Attending Provider: Goldy Warren Primary Care Provider: SILVIA GUTHRIE Consulting Providers: Kevin Caballero; Daniel Hall; Mike Malagon; Sveta Macias Discharge Orders/Prescriptions Prescriptions: New lidocaine 5 % Adhesive Patch,Medicated 2 patch topical DAILY Qty: 60 0RF Protocol: *Topical Application Instructions APPLICATION INSTRUCTIONS: Apply to painful areasof low back. Rx Instructions: Apply to area of low back pain-change daily oxycodone 5 mg Tablet 5 mg PO Q6H PRN PRN (Reason: Pain Score 4-5 Or Pre Pt/Ot) 7 Days Qty: 35 0RF Rx Instructions: 1-2 every 6 hours as needed for pain Continued atenolol 25 mg tablet 25 mg PO DAILY famotidine 20 mg tablet 20 mg PO DAILY folic acid 1 mg tablet 1 mg PO DAILY Xarelto 20 mg tablet 20 mg PO DAILY cholecalciferol (vitamin D3) 50 mcg (2,000 unit) capsule 50 mcg PO DAILY albuterol sulfate 90 mcg/actuation HFA aerosol inhaler 2 puff inhalation Q6H PRN (Reason: dyspnea) tiotropium bromide [Spiriva with HandiHaler] 18 mcg capsule, w/inhalation device 1 cap inhalation DAILY PRN (Reason: shortness of breath ) Skyrizi 150 mg/mL pen injector 150 mg SUBCUT Q90D Patient Comments: [NO ORIGINAL SIG] Discontinued furosemide 20 mg tablet 20 mg PO DAILY Patient Comments: PT STATES SHE DOESNT TAKE ANYMORE. lidocaine 5 % Adhesive Patch,Medicated 2 patch topical DAILY Qty: 0 0RF Protocol: *Topical Application Instructions APPLICATION INSTRUCTIONS: Apply to back pain Patient Comments: PT CANT FIND, BUT SHOULD BE USING. oxycodone-acetaminophen 5-325 mg tablet 1 tab PO TID PRN (Reason: pain) Referrals / Follow Up: SILVIA GUTHRIE [Other] SILVIA GUTHRIE [Other] Mike Malagon MD [Med Staff - Active Staff] - See Referral Note (In 2 weeks, call for an appointment) Disposition Disposition (needs filled in before D/C Order can be placed): Home, Self Care 01/01/25 1326<Electronically signed by Goldy Warren DO>Goldy Warren DO CC: Dr. Daniel Hall MD; Dr. Mike Malagon MD; Dr. Kevin Caballero DO; Dr. Sveta Macias DO; SILVIA GUTHRIE ~ Signed [facility] Work Phone: Evaluation + Plan note Future Appointments [facility] Evaluation noteNo assessment information available [facility] Work Phone: Evaluation note* Diagnosis Presence of right artificial shoulder joint Shoulder joint replacement by other means documented in this encounter [facility] Work Phone: Evaluation note* Diagnosis Dizziness and giddiness documented in this encounter [facility] Work Phone: Evaluation note* Diagnosis Chronic atrial fibrillation (HCC)- Primary Atrial fibrillation Chronic obstructive pulmonary disease, unspecified COPD type (HCC) Essential hypertension Unspecified essential hypertension Cervical spondylosis Cervical spondylosis without myelopathy History of right shoulder replacement Chronic midline low back pain without sciatica Psoriasis, unspecified Psoriatic arthritis (HCC) Psoriatic arthropathy [facility] Diagnosis Viral URI with cough- Primary Acute upper respiratory infections of unspecified site [facility]* Diagnosis Chronic midline low back pain without sciatica- Primary [facility]* Diagnosis Cervical spondylosis- Primary Cervical spondylosis without myelopathy Chronic atrial fibrillation (HCC) Atrial fibrillation Essential hypertension Unspecified essential hypertension Screening for lipid disorders [facility]* Diagnosis Chronic midline low back pain without sciatica [facility]* Diagnosis Hyperglycemia- Primary Other abnormal glucose [facility]* Diagnosis Dysphagia, unspecified type Choking, sequela [facility]* Diagnosis Status post shoulder replacement, right- Primary Osteoporosis of shoulder region Hypokalemia Hypopotassemia Essential hypertension Unspecified essential hypertension Chronic atrial fibrillation (HCC) Atrial fibrillation Chronic obstructive pulmonary disease, unspecified COPD type (HCC) Psoriatic arthritis (HCC) Psoriatic arthropathy documented in this encounter [facility] note* Diagnosis Essential hypertension Unspecified essential hypertension documented in this encounter [facility] note* Diagnosis Chronic midline low back pain without sciatica documented in this encounter [facility] note* Diagnosis Chronic midline low back pain without sciatica documented in this encounter [facility] note* Diagnosis Chronic obstructive pulmonary disease, unspecified COPD type (HCC)- Primary Dysphagia, unspecified type Lung nodule Other diseases of lung, not elsewhere classified Pulmonary fibrosis (HCC) Postinflammatory pulmonary fibrosis documented in this encounter [facility] note* Diagnosis BRBPR (bright red blood per rectum)- Primary Hemorrhage of rectum and anus Chronic constipation Unspecified constipation Abnormal weight loss Loss of weight Abdominal distension (gaseous) Flatulence, eructation, and gas pain Other constipation Nausea Nausea alone documented in this encounter [facility] note* Diagnosis Chronic obstructive pulmonary disease, unspecified COPD type (HCC)- Primary documented in this encounter [facility] note* Diagnosis Abnormal CT scan, colon- Primary Nonspecific (abnormal) findings on radiological and other examination of gastrointestinal tract Chronic constipation Unspecified constipation documented in this encounter [facility] note* Diagnosis Chronic obstructive pulmonary disease, unspecified COPD type (HCC) documented in this encounter [facility] note* Diagnosis Chronic obstructive pulmonary disease, unspecified COPD type (HCC) documented in this encounter [facility] note* Diagnosis Moderate COPD (chronic obstructive pulmonary disease) (HCC)- Primary Chronic airway obstruction, not elsewhere classified Restrictive lung disease Other diseases of lung, not elsewhere classified Lung nodules Other nonspecific abnormal finding of lung field Former cigarette smoker Personal history of tobacco use, presenting hazards to health documented in this encounter [facility] note* Diagnosis Chronic midline low back pain without sciatica documented in this encounter [facility] note* Diagnosis Pancreatic cyst Cyst and pseudocyst of pancreas documented in this encounter [facility] note* Diagnosis Chronic obstructive pulmonary disease, unspecified COPD type (HCC) Pulmonary fibrosis (HCC) Postinflammatory pulmonary fibrosis Lung nodule Other diseases of lung, not elsewhere classified documented in this encounter [facility] note* Diagnosis Itching- Primary Unspecified pruritic disorder Upper back pain Abnormal weight loss Loss of weight HTN (hypertension), benign Essential hypertension, benign Paroxysmal atrial fibrillation (HCC) Atrial fibrillation Hyperglycemia Other abnormal glucose Chronic constipation Unspecified constipation documented in this encounter [facility] note* Diagnosis Chronic obstructive pulmonary disease, unspecified COPD type (HCC) documented in this encounter [facility] note* Diagnosis Essential hypertension Unspecified essential hypertension documented in this encounter [facility] note* Diagnosis Chronic midline low back pain without sciatica documented in this encounter [facility] note* Diagnosis URI, acute- Primary Acute upper respiratory infections of unspecified site documented in this encounter [facility] note* Diagnosis Chronic obstructive pulmonary disease, unspecified COPD type (HCC)- Primary Restrictive lung disease Other diseases of lung, not elsewhere classified History of pulmonary fibrosis Personal history of other diseases of respiratory system Pulmonary nodules Other nonspecific abnormal finding of lung field Former cigarette smoker Personal history of tobacco use, presenting hazards to health documented in this encounter [facility] note* Diagnosis Medication management Encounter for long-term (current) use of other medications documented in this encounter [facility] note* Diagnosis Hypokalemia- Primary Hypopotassemia documented in this encounter [facility] note* Diagnosis Medicare annual wellness visit, subsequent- Primary Routine general medical examination at a [facility] care facility Idiopathic pulmonary fibrosis (HCC) Idiopathic pulmonary fibrosis Psoriatic arthritis (HCC) Psoriatic arthropathy Obesity, Class I, BMI 30-34.9 Obesity, unspecified 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 Abnormality of gait Falling episodes Lack of coordination Skin irritation Unspecified disorder of skin and subcutaneous tissue documented in this encounter [facility] note* Diagnosis Lung nodules- Primary Other nonspecific abnormal finding of lung field Ground glass opacity present on imaging of lung documented in this encounter [facility] note* Diagnosis Chronic midline low back pain without sciatica documented in this encounter [facility] note* Diagnosis Moderate COPD (chronic obstructive pulmonary disease) (HCC)- Primary Chronic airway obstruction, not elsewhere classified Ground glass opacity present on imaging of lung Former smoker Personal history of tobacco use, presenting hazards to health documented in this encounter [facility] note* Diagnosis Closed fracture of multiple ribs of left side, sequela- Primary Chronic left-sided thoracic back pain documented in this encounter [facility] note* Diagnosis Closed fracture of multiple ribs of left side, sequela Chronic left-sided thoracic back pain documented in this encounter [facility] note* Diagnosis Chronic midline low back pain without sciatica documented in this encounter [facility] note* Diagnosis Closed fracture of multiple ribs of left side with routine healing, subsequent encounter- Primary documented in this encounter [facility] note* Diagnosis Chronic left-sided thoracic back pain- Primary documented in this encounter [facility] note* Diagnosis Essential hypertension Unspecified essential hypertension documented in this encounter [facility] note* Diagnosis Epigastric pain- Primary Abdominal pain, epigastric Pancreatic cyst Cyst and pseudocyst of pancreas documented in this encounter [facility] note* Diagnosis Pancreatic cyst- Primary Cyst and pseudocyst of pancreas documented in this encounter [facility] note* Diagnosis Epigastric pain Abdominal pain, epigastric documented in this encounter [facility] note* Diagnosis Chronic obstructive pulmonary disease, unspecified COPD type (HCC) documented in this encounter [facility] note* Diagnosis Dysphagia, unspecified type documented in this encounter [facility] note* Diagnosis Choking, sequela- Primary Dysphagia, unspecified type Dysphagia, unspecified type Choking, sequela documented in this encounter [facility] note* Diagnosis Chronic obstructive pulmonary disease, unspecified COPD type (HCC)- Primary Dysphagia, unspecified type Lung nodule Other diseases of lung, not elsewhere classified Pulmonary fibrosis (HCC) Postinflammatory pulmonary fibrosis documented in this encounter [facility] note* Diagnosis Lung nodules- Primary Other nonspecific abnormal finding of lung field Moderate COPD (chronic obstructive pulmonary disease) (HCC) Chronic airway obstruction, not elsewhere classified Former smoker Personal history of tobacco use, presenting hazards to health documented in this encounter [facility] note* Diagnosis Lung nodules Other nonspecific abnormal finding of lung field Ground glass opacity present on imaging of lung documented in this encounter [facility] note* Diagnosis Onset Date Resolution Status Admit Date Septic shock acute November 17, 2024 4:40pm [facility] Work Phone: Evaluation note* Diagnosis 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 Other chronic bronchitis Chronic atrial fibrillation (HCC) Atrial fibrillation HTN (hypertension), benign Essential hypertension, benign Chronic midline low back pain without sciatica Chronic atrial fibrillation (HCC)- Primary Atrial fibrillation Chronic midline low back pain without sciatica Mixed simple and mucopurulent chronic bronchitis (HCC) Other chronic bronchitis HTN (hypertension), benign Essential hypertension, benign Weakness Other malaise and fatigue * Assessment & Plan Note - Keerthi Cuba - 12/03/2024 9:46 PM EDTAssociated Problem(s): Chronic midline low back pain without sciatica States being told she has a compound spinal fracture 2023 Tylenol lidocaine patch Therapy * Assessment & Plan Note - Keerthi Cuba - 12/03/2024 9:29 PM EDTAssociated Problem(s): HTN (hypertension), benign Stable Continue lasix, atenolol monitor * Assessment & Plan Note - Keerthi Cuba - 12/03/2024 9:28 PM EDTAssociated Problem(s): Chronic atrial fibrillation (HCC) Stable Rate controlled No sob, dizziness, palpitations Continue xarelto Monitor for bleeding/bruising * Assessment & Plan Note - Keerthi Cuba - 12/03/2024 9:26 PM EDTAssociated Problem(s): Chronic obstructive pulmonary disease (HCC) Stable No SOB, wheeze Nonproductive cough Continuous O2 Continue tiotropium, Ipratropium bromide, albuterol Monitor sats [facility] 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 Other chronic bronchitis Chronic atrial fibrillation (HCC) Atrial fibrillation HTN (hypertension), benign Essential hypertension, benign Chronic midline low back pain without sciatica Chronic atrial fibrillation (HCC)- Primary Atrial fibrillation Chronic midline low back pain without sciatica Mixed simple and mucopurulent chronic bronchitis (HCC) Other chronic bronchitis HTN (hypertension), benign Essential hypertension, benign Weakness Other malaise and fatigue * Assessment & Plan Note - Keerthi Cuba - 12/03/2024 9:51 PM EDTAssociated Problem(s): Chronic atrial fibrillation (HCC) Stable Rate controlled No sob, dizziness, palpitations Continue xarelto Monitor for bleeding/bruising * Assessment & Plan Note - Keerthi Cuba - 12/03/2024 9:51 PM EDTAssociated Problem(s): Chronic midline low back pain without sciatica Complains of severe mid back pain History of compound spinal fracture 2023 Tylenol lidocaine patch Tramadol Therapy * Assessment & Plan Note - Keerthi Cuba - 12/03/2024 9:51 PM EDTAssociated Problem(s): Chronic obstructive pulmonary disease (HCC) Stable No SOB, wheeze Nonproductive cough Continuous O2 Continue tiotropium, Ipratropium bromide, albuterol Monitor sats * Assessment & Plan Note - Keerthi Cuba - 12/03/2024 9:51 PM EDTAssociated Problem(s): HTN (hypertension), benign Stable Continue lasix, atenolol monitor * Assessment & Plan Note - Keerthi Cuba - 12/03/2024 9:51 PM EDTAssociated Problem(s): Weakness Continue therapy [facility] Diagnosis Chronic atrial fibrillation (HCC)- Primary Atrial fibrillation HTN (hypertension), benign Essential hypertension, benign Paroxysmal atrial fibrillation (HCC) Atrial fibrillation Mixed simple and mucopurulent chronic bronchitis (HCC) Other chronic bronchitis Weakness Other malaise and fatigue 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 Other chronic bronchitis Chronic atrial fibrillation (HCC) Atrial fibrillation HTN (hypertension), benign Essential hypertension, benign Chronic midline low back pain without sciatica Chronic atrial fibrillation (HCC)- Primary Atrial fibrillation Chronic midline low back pain without sciatica Mixed simple and mucopurulent chronic bronchitis (HCC) Other chronic bronchitis HTN (hypertension), benign Essential hypertension, benign Weakness Other malaise and fatigue * Assessment & Plan Note - Isaias Keith DO - 12/04/2024 10:32 PM EDT Associated Problem(s): Weakness PT OT * Assessment & Plan Note - Isaias Keith DO - 12/04/2024 10:31 PM EDT Associated Problem(s): Chronic obstructive pulmonary disease (HCC) Continue current medications * Assessment & Plan Note - Isaias Keith DO - 12/04/2024 10:31 PM EDT Associated Problem(s): Paroxysmal atrial fibrillation (HCC) Continue current medications * Assessment & Plan Note - Isaias Keith DO - 12/04/2024 10:31 PM EDT Associated Problem(s): HTN (hypertension), benign Continue current medications * Assessment & Plan Note - Isaias Keith DO - 12/04/2024 10:31 PM EDT Associated Problem(s): Chronic atrial fibrillation (HCC) Continue current medications [facility] Chronic atrial fibrillation (HCC)- Primary Atrial fibrillation HTN (hypertension), benign Essential hypertension, benign Paroxysmal atrial fibrillation (HCC) Atrial fibrillation Mixed simple and mucopurulent chronic bronchitis (HCC) Other chronic bronchitis Weakness Other malaise and fatigue 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 Other chronic bronchitis Chronic atrial fibrillation (HCC) Atrial fibrillation HTN (hypertension), benign Essential hypertension, benign Chronic midline low back pain without sciatica Chronic atrial fibrillation (HCC)- Primary Atrial fibrillation Chronic midline low back pain without sciatica Mixed simple and mucopurulent chronic bronchitis (HCC) Other chronic bronchitis HTN (hypertension), benign Essential hypertension, benign Weakness Other malaise and fatigue Weakness- Primary Other malaise and fatigue HTN (hypertension), benign Essential hypertension, benign Chronic atrial fibrillation (HCC) Atrial fibrillation Weakness- Primary Other malaise and fatigue HTN (hypertension), benign Essential hypertension, benign Mixed simple and mucopurulent chronic bronchitis (HCC) Other chronic bronchitis * Assessment & Plan Note - Juanpablo Presley - 12/09/2024 8:14 PM EDTAssociated Problem(s): Chronic atrial fibrillation (HCC) Stable Rate controlled No sob, dizziness, palpitations Continue xarelto Monitor for bleeding/bruising * Assessment & Plan Note - Juanpablo Presley - 12/09/2024 8:14 PM EDTAssociated Problem(s): HTN (hypertension), benign Stable Continue lasix, atenolol monitor * Assessment & Plan Note - Juanpablo Presley - 12/09/2024 8:14 PM EDTAssociated Problem(s): Weakness PT OT [facility] Diagnosis Asymptomatic menopausal state- [facility] Diagnosis Cardiac murmur, unspecified- Primary [facility]* Diagnosis Age-related osteoporosis without current pathological fracture- Primary Postmenopausal Asymptomatic postmenopausal status (age-related) (natural) History of fragility fracture Fracture Risk Assessment Score (FRAX) indicating greater than 20% risk for major osteoporosis-related fracture Fracture Risk Assessment Score (FRAX) indicating greater than 3% risk for hip fracture [facility] Diagnosis Age-related osteoporosis without current pathological fracture- Primary Postmenopausal Asymptomatic postmenopausal status (age-related) (natural) History of fragility fracture Fracture Risk Assessment Score (FRAX) indicating greater than 20% risk for major osteoporosis-related fracture Fracture Risk Assessment Score (FRAX) indicating greater than 3% risk for hip fracture [facility] Author [facility] Note Date/Time November 17, 2024 5:0 4pm [facility] Medical Records Department [address] [place] [address] H&P Exam - Hospitalist 11/17/24 1640 MR#: [id number] Acct: [id number] Name: LESLI ROSALES Rep #:[id number] : 1940 84 From: Elsy Perdomo MD PCP: SILVIA GUTHRIE Status:ADM IN Location: ICU ICU04-1 HPI - General General Date of Admission: 11/17/24 Date of Service: 11/17/24 Chief Complaint: Poor PO, nausea HPI Narrative LESLI ROSALES, is a an 84-year-old female with history of A-fib, psoriatic arthritis, COPD who [facility] ED 11/17/2024 with righthip pain with some difficulty ambulating with poor p.o. intake. In the ED patient initially with blood pressure of 88/62 and pulse ox 83 percent on room air. Patient's BMP shows elevated creatinine of 2.45, suspect NAT given previous creatinines were in the 0.7 range though it has been several years since there have been any available in our system. Patient also has elevated AST and ALT of 474 and 435 respectively. Patient has BNP of nearly 22,000 and atroponin of 482. White blood cell count of 21.2 with a hemoglobin documented at17.7 and lactic acid of 4.1. Patient given IV fluids and broad-spectrum antibiotics for presumed sepsis and remained hypotensive so patient had right IJplaced and was started on norepinephrine. Broad cultures obtained. UA not consistent with UTI, chest x-ray did not demonstrate changes concerning for pneumonia however. Hospitalist contacted for admission for septic shock secondary to community-acquired pneumonia. Patient evaluated at bedside and reports that for the last couple of days she has felt poor in general and has not been eating or drinking, reports that today she became very nauseous and started having jerking movements and also had a lot of loose stool prompting herto come to the ED. When asking about her hip pain she reports that she helped get her up after he fell a couple months ago and hurt her back and hips,she went to the ED at that time at an outlying facility and was told she pulled her lower back muscles, since that time she has had low back pain and bilateral hip pain sometimes more on the right sometimes more on the left sometimes both and does not note that it is necessarily changed over the past couple days it isjust also bothersome to her. Denies any fevers at home, said she does get shortof breath but does not note necessarily any new episodes, does not note any significant coughing, no abdominal pain or changes in urination, does report large-volume loose stool earlier today which is abnormal for her, had not occurred prior. [facility] Medical History (Updated 11/17/24 @ 16:[address] Elsy Perdomo MD) A-fib COPD (chronic obstructive pulmonary disease) Psoriatic arthritis Shingles Home Medications ?Medication ?Instructions ?Recorded ?Last Taken ?Type atenolol 25 mg tablet 25 mg PO DAILY 06/26/21 Unkn own History famotidine 20 mg tablet 20 mg PO DAILY 06/26/21 Unkn own History folic acid 1 mg tablet 1 mg PO DAILY 06/26/21 Unkno wn History ipratropium bromide 0.02 % 2 ml inhalation DAILY 06/26 Unknown History solution for inhalation rivaroxaban 20 mg tablet (Xarelto) 20 mg PO DAILY 02/08 Unknown History amitriptyline 25 mg tablet 25 mg PO QHS 11/17/24 Unkno wn History cholecalciferol (vitamin D3) 50 50 mcg PO DAILY Unknown History mcg (2,000 unit) capsule furosemide 20 mg tablet 20 mg PO DAILY 11/17/24 Unkn own History Allergy/AdvReac Type Severity Reaction Status Date / Time No Known Allergies Allergy Verified 11/17/24 12:43 Surgical History H/O hernia repair History of appendectomy History of bladder suspension procedure History of cholecystectomy History of partial hysterectomy Social History household members: none Smoking Status: Former smoker substance use type: does not use ROS ROS Narrative General: Denies fever/chills HENT: Little bit of intermittent frontal headache, denies stuffy nose, denies sore throat EYES: Denies changes in vision Resp: Has some chronic shortness of breath, no specific cough Cardiac: Denies chest pain GI: Denies abdominal pain, had diarrhea today, additional endorses nausea earlier today, very poor p.o. intake for the past several days : Denies changes in urination Extremity: Denies swelling MSK: Feels little bit weak all over and has chronic hip pain Neuro: Denies any numbness/tingling Heme: Denies any bleeding or bruising Skin: Denies rashes Psychiatric: No complaints voiced Vital Signs Vital Signs Vital Signs: 11/17/24 12:42 11/17/24 12:42 11/17/24 12:51 Temperature 98.3 F Temperature Source Oral Pulse Rate 76 66 Respiratory Rate 13 9 L Blood Pressure 88/62 L 83/61 L Blood Pressure Mean 70 68 Pulse Ox 83 79 94 Oxygen Delivery Method Room Air Nasal Cannula Nasal Cannula Oxygen Flow Rate (L/min) 2 4 11/17/24 14:29 11/17/24 15:00 11/17/24 15:06 Temperature 98.6 F Temperature Source Oral Pulse Rate 56 L 63 61 Respiratory Rate 8 L 17 16 Blood Pressure 77/42 L 86/60 L 86/60 L Blood Pressure Mean 53 68 68 Pulse Ox 95 97 Oxygen Delivery Method Nasal Cannula Oxygen Flow Rate (L/min) 2 3 11/17/24 15:17 11/17/24 15:43 11/17/24 15:57 Temperature Temperature Source Pulse Rate 59 L 78 63 Respiratory Rate 17 16 11 L Blood Pressure 86/60 L 93/38 L 109/58 L Blood Pressure Mean 68 56 75 Pulse Ox 95 93 95 Oxygen Delivery Method Nasal Cannula Nasal Cannula Oxygen Flow Rate (L/min) 3 2 3 11/17/24 16:36 11/17/24 16:38 Temperature 98.8 F 98.8 F Temperature Source Oral Pulse Rate 69 63 Respiratory Rate 17 10 L Blood Pressure 88/69 L 88/69 L Blood Pressure Mean 75 75 Pulse Ox 93 95 Oxygen Delivery Method Nasal Cannula Oxygen Flow Rate (L/min) Weight Weight: 69.8 kg Body Mass Index (BMI) 30.0 Physical Exam Narrative General: Alert, oriented, no apparent distress HEENT: Atraumatic, normocephalic Eyes: Anicteric, normal conjunctiva, extraocular movements grossly intact Neck: Supple Respiratory: Coarse bilaterally, normal respiratory effort Cardiovascular: Regular rate and rhythm GI: Soft, has a little bit of tenderness in random spots on abdomen without necessarily being able to really create this or reproduce this, no rebound, guarding, rigidity Extremities: No edema Musculoskeletal: Moving all extremities Neuro: No overt focal neurological deficits Skin: No rashes appreciated Psych: Cooperative Results Lab / Micro Data 11/17/24 12:45 11/17/24 12:45 Labs: Laboratory Results - last 24 hr 11/17/24 12:45: WBC 21.2 H, RBC 5.44 H, Hgb 17.7 H, Hct 56.6 H, MCV 104.0 H, MCH32.5 H, MCHC 31.3 L, RDW Std Deviation 53.3 H, RDW Coeff of Mildred 13.7, Plt Count 272, MPV 11.0, Immature Gran % (Auto) 0.700, Neut % (Auto) 85.3 H, Lymph % (Auto) 6.2 L, [place] % (Auto) 7.5, Eos % (Auto) 0.0, Baso % (Auto) 0.3, Absolute Neuts (auto) 18.1 H, Absolute Lymphs (auto) 1.32, Nucleated RBC % 0, Diff Path Review December, Sodium 142, Potassium 5.1, Chloride 102, Carbon Dioxide 21.9, Anion Gap 18 H, BUN 45 H, Creatinine 2.45 H, Estim Creat Clear Calc 15.17 L, Est GFR (MDRD) Non-Af 19 L, BUN/Creatinine Ratio 18.2, Glucose 160 H, Lactic Acid 4.1 H*, Calcium 9.6, Total Bilirubin 1.19, AST 474 H, ALT 435 H, Alkaline Phosphatase 168 H, Troponin T High Sens 482 H*, [place] [address] H, Total Protein 7.3, Albumin 3.7, Globulin 3.6, Albumin/Globulin Ratio 1.0 11/17/24 13:37: Urine Color Yellow, Urine Clarity Sl. Cloudy, Urine pH 6.0, Ur Specific Bim 1.020, Urine Protein 30 H, Urine Glucose (UA) Normal, Urine Ketones 15 H, Urine Occult Blood 10 H, Urine Nitrite Negative, Urine Bilirubin Negative, Urine Urobilinogen 1 H, Ur Leukocyte Esterase 25 H, Urine RBC 0 SEEN, Urine WBC 0-5 SEEN, Ur Squamous Epith Cells 0-5 SEEN, Urine Bacteria 0 SEEN, Urine Mucus 0 SEEN 11/17/24 15:15: Troponin T Hi Sens 2 Hr 441 H* Micro: Microbiology 11/17/24 13:20 Mucosa - Nose SARS-CoV-2, Influenza & RSV (PCR) - Final Imaging Radiology Impression Chest X-Ray 11/17/24 15:21 IMPRESSION: 1. Bilateral airspace opacities, compatible with pneumonitis/pneumonia. 2. Moderate cardiomegaly. 3. Slight increased size of a right midlung pulmonary nodule, previously characterized as a granuloma. Without access to patient chart, this diagnosis can not be confirmed. Correlation with patient's chart recommended and possible outpatient nonemergent CT chest could be obtained for further characterization if clinically indicated, not recently performed and/or inability to confirm benign pathology. Reading Location: [facility] Hip/Pelvis X-Ray 11/17/24 15:21 IMPRESSION: DEGENERATIVE OSTEOARTHROSIS. NO ACUTE FINDINGS. Reading Location: [facility] Assessment & Plan Assessment/Plan (1) Septic shock: PLAN: Plan # Septic shock suspect secondary to pneumonia -Patient hypotensive with blood pressure of 88/62 ultimately not responsive to IV fluids requiring pressor support -Additionally patient hypoxic at 83% on room air and has creatinine which is suspected to be elevated from baseline at 2.45 with previous values around 0.7 -White blood cell count noted to be 21.2 with a lactic acid of 14.1 -BNP nearly 22,000, troponin 482 and patient with elevated liver function tests as well, suspect this is secondary to her hypotension and hypoxia -Patient fluid resuscitated but requiring Levophed -Pancultures -UA not suggestive of UTI -Chest x-ray suggestive of pneumonia -DuoNebs and as needed albuterol -Sputum culture, COVID ordered, respiratory panel ordered -Urine antigens -Mucinex, I/S -Will also check stool studies given patient's nausea and diarrhea, denies any significant abdominal pain -Patient's imaging concerning for pneumonia but patient denies any significant changes in respiratory status or cough and given significance of patient's illness we will start broad-spectrum antibiotics and narrow as able as further results available and workup underway # Hypoxia with new O2 requirement suspect secondary to pneumonia -X-ray compatible with pneumonia -Management as above -Patient does not appear to be clinically overloaded even with elevated BNP patient denies any swelling or other concerns but does appear she is on home Lasix -Given her dry mucous membranes and significant volume depletion given very poorp.o. intake and suspected kidney failure will hold this for now but carefully monitor daily weights and I's and O's with low threshold to resume once patient stable -Continuing IV fluids however will run maintenance for 1 more liter, and this can be reevaluated if patient needs further fluids # Nausea and episode of diarrhea -Unclear if this is due to patient's dehydration and uremia or if there could beother etiology -Supportive care -IV fluids -Will check stool studies -Patient without impressive abdominal exam so this was not scanned, pending further workup and clinical course could consider scanning the abdomen however given lack of significant exam findings we will hold off acutely # Bilateral hip pain -Patient reports hip pain for months after trying to pick her up off theground with help -Sometimes will have pain more on the right, sometimes more on the left and sometimes both sides, does not note anything specific necessarily occurred todayor that this is changed over the past couple of days it is just an additional problem -Pain control as blood pressure allows -Hip/pelvis x-ray with degenerative osteoarthrosis -Given patient's report of also lower back pain and that this all occurred aftertrying to lift her up could consider further imaging with CT or MRI of lumbar spine and hips pending clinical progress, patient is stable could always consider this on an outpatient basis -PT/OT # Elevated troponin -Patient with elevated troponin of 482 and proBNP of nearly 22,000, suspect thatthis is part of the endorgan damage from her septic shock. -Treat underlying etiology -Repeat troponin did downtrend # Suspected NAT -Creatinine 2.45 with baseline seemingly around 0.7 -Suspect this is due to patient's septic shock/systemic illness -IV fluids, monitor I's and O's -Avoid nephrotoxic agents # Elevated liver function tests -Suspect shock liver given patient's hypotension and approximately -Fluid resuscitation -Will trend -Avoid hepatotoxic agents #Hx pafib -On xeralto and atenolol at home -Holding atenolol given hypotension #Hypertension -Holding home antihypertensives # Patient with history of psoriatic arthritis -On Skyrizi every 3 month self injection #GERD -Continue home famotidine #DVT ppx: Patient fully anticoagulated Elsy Perdomo MD Time spent in the patient's overall evaluation,decision-making process, review of diagnostic data, adjustment of management, discussion with other providers, nursing nursing and ancillary staff involved in patient's care documentation, 78Minutes Charges/Coding Visit Charges Inpatient E&M: 82360 Init Hosp L3 11/17/24 1704 <Electronically signed by Elsy Perdomo MD> Cosigner Signature (if applicable): CC: Dr. Elsy Perdomo MD; SILVIA GUTHRIE~ Signed [facility] Work Phone: Hospital course Narrative No data available for this section [facility] Hospital Discharge instructions No data available for this section [facility] Reason for referral (narrative)* Diagnostic Procedure Only (Routine) - Closed Specialty Diagnoses / Procedures Referred By Contac t Referred To Contact XR IMAGING Diagnoses Closed fracture of multiple ribs of left side, sequela Chronic left-sided thoracic back pain Procedures XR RIBS 2V AP/OBL LEFT RADEX RIBS UNILATERAL 2 VIEWS Giselle Elizondo MD [address] [facility] [place] [address] [place] [address] Referral ID Status Reason Start Date Expiration Date V isits Requested Visits Authorized [id number] Closed Auto-Generate d Referral 05/29/2024 06/28/2025 1 1 * Diagnostic Procedure Only (Routine) - Closed Specialty Diagnoses / Procedures Referred By Contac t Referred To Contact XR IMAGING Diagnoses Closed fracture of multiple ribs of left side, sequela Chronic left-sided thoracic back pain Procedures XR THORACIC GENERAL 3V AP/LAT/SWIMMERS RADEX SPINE THORACIC 3 VIEWS Giselle Elizondo MD [address] [facility] [place] [address] [place] [address] Referral ID Status Reason Start Date Expiration Date V isits Requested Visits Authorized [id number] Closed Auto-Generate d Referral 05/29/2024 06/28/2025 1 1 [facility] for referral (narrative)* Diagnostic Procedure Only (Urgent) - Authorized Specialty Diagnoses / Procedures Referred By Contac t Referred To Contact US IMAGING Diagnoses Epigastric pain Procedures US ABD RIGHT UPPER QUADRANT US ABDOMINAL REAL TIME W/IMAGE LIMITED Ana Meza APRN.ACCOUNT MANAGER TRAINEE [address] [facility] [place] [address] [place] [address] Referral ID Status Reason Start Date Expiration Date Visits Requested Visits Authorized [id number] Authorized Auto-Generat ed Referral 4 08/09/2025 1 1 * MRI/CT (Routine) - Authorized Specialty Diagnoses / Procedures Referred By Contac t Referred To Contact MR IMAGING Diagnoses Pancreatic cyst Procedures MRI 3D POST PROCESSING 3D RENDERING W/INTERP&POSTPROC DIFF WORK STATION Ana Meza APRN.ACCOUNT MANAGER TRAINEE [address] [facility] [place] [address] [place] [address] Referral ID Status Reason Start Date Expiration Date Visits Requested Visits Authorized [id number] Authorized Auto-Generat ed Referral 4 08/20/2024 1 1 * MRI/CT (Routine) - Authorized Specialty Diagnoses / Procedures Referred By Contac t Referred To Contact MR IMAGING Diagnoses Pancreatic cyst Procedures MRI PANC/IRVING WO/W IVCON MRI ABDOMEN W/O & W/CONTRAST MATERIAL Ana Meza APRN.ACCOUNT MANAGER TRAINEE [address] [facility] [place] [address] [place] [address] Referral ID Status Reason Start Date Expiration Date Visits Requested Visits Authorized [id number] Authorized Auto-Generat ed Referral 08/09/2025 [address] [facility] for referral (narrative)* Diagnostic Procedure Only (Urgent) - Closed Specialty Diagnoses / Procedures Referred By Contac t Referred To Contact US IMAGING Diagnoses Epigastric pain Procedures US ABD RIGHT UPPER QUADRANT US ABDOMINAL REAL TIME W/IMAGE LIMITED Ana Meza APRN.ACCOUNT MANAGER TRAINEE [address] [facility] [place] [address] [place] [address] Referral ID Status Reason Start Date Expiration Date V isits Requested Visits Authorized [id number] Closed Auto-Generate d Referral 07/10/2024 08/09/2025 [address] [facility] for referral (narrative)No reason for referral information [facility] Work Phone: [facility] for visit Narrative* Diagnostic Procedure Only (Routine) - Closed Specialty Diagnoses / Procedures Referred By Contac t Referred To Contact XR IMAGING Diagnoses Closed fracture of multiple ribs of left side, sequela Chronic left-sided thoracic back pain Procedures XR RIBS 2V AP/OBL LEFT RADEX RIBS UNILATERAL 2 VIEWS Giselle Elizondo MD [address] [facility] [place] [address] [place] [address] Referral ID Status Reason Start Date Expiration Date V isits Requested Visits Authorized [id number] Closed Auto-Generate d Referral 05/29/2024 06/28/2025 1 1 [facility] Summary Purpose Family History No Family History Records FoundNo Family History Records FoundNo Family History Records FoundNo Family History Records FoundNo Family History Records FoundNo Family History Records FoundNo Family History Records FoundNo Family History Records FoundNo Family History Records FoundNo Family History Records Found Advance Directives No Advanced Directives Records FoundDocuments on File Type Date Recorded 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 Advance Directives and Living Will Power of Geographic Information Systems Analyst Documents on File Type Date 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 Yes November 17, 2024 12:52pm Name of Medical Power of Geographic Information Systems Analyst ? November 17, 2024 12:52pm Advance Directive Response Recorded Date/ Time Living Will Yes November 17, 2024 5:40pm Do you have a Healthcare Power of Geographic Information Systems Analyst? Yes November 17, 2024 5:40pm Name of Medical Power of Geographic Information Systems Analyst ? November 17, 2024 5:40pm Advance Directive Response Recorded Date/ Time Living Will Yes November 17, 2024 5:40pm Do you have a Healthcare Power of Geographic Information Systems Analyst? Yes November 17, 2024 5:40pm Name of Medical Power of Geographic Information Systems Analyst ? November 17, 2024 5:40pm Do you have a Healthcare Power of Geographic Information Systems Analyst? Yes December 24, 2024 3:29pm Advance Directive Response Recorded Date/ Time Living Will Yes November 17, 2024 5:40pm Do you have a Healthcare Power of Geographic Information Systems Analyst? Yes November 17, 2024 5:40pm Name of Medical Power of Geographic Information Systems Analyst ? November 17, 2024 5:40pm Do you have a Healthcare Power of Geographic Information Systems Analyst? Yes December 24, 2024 9:20pm Name of Medical Power of Geographic Information Systems Analyst franco hernandez ms December 24, 2024 9:20pm Reason for Referral Status Reason Specialty Diagnoses / Procedures Referred By Contact Referred To Contact Open Specialty Services Required Otolaryngology Diagnoses Epistaxis, recurrent Luke Ireland MD [address] [facility] [place] [address] [facility] [address] [place] [address] Scheduling Instructions [facility] [address] [place], [place] [address] F: [phone] Specialty Diagnoses / Procedures Referred By Contac t Referred To Contact Radiology Diagnoses Pulmonary fibrosis (HCC) Procedures CT chest wo IV contrast Loan Madrigal PA-C [address] [place] [address] Referral ID Status Reason Start Date Expiration Date V isits Requested Visits Authorized [id number] Authorized 05/17/2023 11/13/2023 1 1 Specialty Diagnoses / Procedures Referred By Contac t Referred To Contact CT IMAGING Diagnoses BRBPR (bright red blood per rectum) Chronic constipation Abnormal weight loss Abdominal distension (gaseous) Other constipation Nausea Procedures CT ABD/PEL W IVCON CT ABD & PELVIS W/CONTRAST Fernanda Horne PA-C [address] [facility] [address] [place] [address] Ct [facility] [place] [address] Referral ID Status Reason Start Date Expiration Date Visits Requested Visits Authorized [id number] Authorized Auto-Generat ed Referral 05/22/2023 06/20/2024 1 1 Specialty Diagnoses / Procedures Referred By Contac t Referred To Contact Pulmonary and Critical Care Medicine Diagnoses Chronic obstructive pulmonary disease, unspecified COPD type (HCC) Procedures CONSULT TO PULM/CRITICAL CARE OFFICE/OUTPATIENT [facility] 60-74 MINUTES Ruby Prater, MAINFRAME SYSTEMS ENGINEER.ACCOUNT MANAGER TRAINEE [address] [place] [id number] Referral ID Status Reason Start Date Expiration Date Visits Requested Visits Authorized [id number] Pending Review PCP Requested Referral 05/23/2023 05/22/2024 1 1 Specialty Diagnoses / Procedures Referred By Contac t Referred To Contact CT IMAGING Diagnoses Interstitial pulmonary disease (HCC) Procedures CT CHEST WO IVCON DIAGNOSTIC COMPUTED TOMOGRAPHY THORAX W/O Keely Amador MD [address] [place] [address] Ct [facility] [place] [address] Referral ID Status Reason Start Date Expiration Date Visits Requested Visits Authorized [id number] Authorized Auto-Generat ed Referral 12/28/2023 01/26/2025 1 1 Specialty Diagnoses / Procedures Referred By Contac t Referred To Contact CT IMAGING Diagnoses Lung nodules Ground glass opacity present on imaging of lung Procedures CT CHEST WO IVCON DIAGNOSTIC COMPUTED TOMOGRAPHY THORAX W/O CNTRST Keely Givens MD [address] [place] [address] Ct [facility] [place] [address] Referral ID Status Reason Start Date Expiration Date Visits Requested Visits Authorized [id number] Pending Review Auto-Generat ed Referral 4 02/28/2025 1 1 Specialty Diagnoses / Procedures Referred By Contac t Referred To Contact MR IMAGING Diagnoses Pancreatic cyst Procedures MRI 3D POST PROCESSING 3D RENDERING W/INTERP&POSTPROC DIFF WORK STATION Ana Meza, LAVELLE.ACCOUNT MANAGER TRAINEE 1 [facility] [place] [address] Mr Imaging [id number] Referral ID Status Reason Start Date Expiration Date Visits Requested Visits Authorized [id number] New Request Auto-Generat ed Referral 4 08/09/2025 1 1 Specialty Diagnoses / Procedures Referred By Contac t Referred To Contact MR IMAGING Diagnoses Pancreatic cyst Procedures MRI PANC/IRVING WO/W IVCON MRI ABDOMEN W/O & W/CONTRAST MATERIAL Ana Meza, MAINFRAME SYSTEMS ENGINEER.ACCOUNT MANAGER TRAINEE [address] [facility] [place] [address] Mr Imaging [id number] Referral ID Status Reason Start Date Expiration Date Visits Requested Visits Authorized [id number] New Request Auto-Generat ed Referral 4 08/09/2025 1 1 Specialty Diagnoses / Procedures Referred By Contac t Referred To Contact Pulmonology Diagnoses Chronic obstructive pulmonary disease, unspecified COPD type (HCC) Procedures Complete PFT study Loan Madrigal PA-C [address] [place] [address] Ach [address] [place] [address] Referral ID Status Reason Start Date Expiration Date Visits Re quested Visits Authorized [id number] Closed 08/05/2022 02/01/2023 1 1 Specialty Diagnoses / Procedures Referred By Contac t Referred To Contact Radiology Diagnoses Lung nodule Pulmonary fibrosis (HCC) Procedures CT chest wo IV contrast Loan Madrigal PA-C [address] [place] [address] [place] [id number] Referral ID Status Reason Start Date Expiration Date V isits Requested Visits Authorized [id number] Pending Review 10/20/2022 04/18/2023 1 1 Specialty Diagnoses / Procedures Referred By Contac t Referred To Contact General Surgery Diagnoses Dysphagia, unspecified type Procedures MA OFFICE/OUTPATIENT NEW HIGH MDM 60-74 MINUTES Loan Madrigal PA-C [address] [place] [address] [facility] [address] [place] [address] Referral ID Status Reason Start Date Expiration Date Visits Requested Visits Authorized [id number] Authorized Specialty Services Required 10/20/2022 10/20/2023 1 1 Specialty Diagnoses / Procedures Referred By Contac t Referred To Contact CT IMAGING Diagnoses Lung nodules Procedures CT CHEST WO IVCON DIAGNOSTIC COMPUTED TOMOGRAPHY THORAX W/O Keely Amador MD [address] [place] [address] [place] [id number] Referral ID Status Reason Start Date Expiration Date Visits Requested Visits Authorized [id number] Authorized Auto-Generat ed Referral 12/11/2024 10/12/2025 1 1 Discharge Instructions * Attachments The following attachments cannot be sent through Care Everywhere. * Nosebleeds (Finnish) documented in this encounter Assessments Diagnosis Epistaxis, recurrent Chief Complaint and Reason for Visit Chief Complaint NECK PAIN Chief Complaint Admit Date SEPTIC SHOCK November 17, 2024 4:4 0pm Reason for Visit Admit Date Septic shock November 17, 2024 4:4 0pm Chief Complaint Admit Date SEPTIC SHOCK November 17, 2024 4:4 0pm SEPTIC SHOCK November 18, 2024 7:3 0am SEPTIC SHOCK November 18, 2024 7:5 1am SEPTIC SHOCK November 19, 2024 7:17 am SEPTIC SHOCK November 19, 2024 7:40 am SEPTIC SHOCK November 20, 2024 8:41 am SEPTIC SHOCK November 20, 2024 9:02 am SEPTIC SHOCK November 21, 2024 9:40 am SEPTIC SHOCK November 21, 2024 10:1 3am SEPTIC SHOCK November 22, 2024 9:00 am SEPTIC SHOCK November 23, 2024 7:48 am SEPTIC SHOCK November 24, 2024 8:44 am Reason for Visit Admit Date NAT (acute kidney injury) November 17 4:40pm Septic shock November 17, 2024 4:4 0pm Shock November 17, 2024 4:4 0pm Chief Complaint Admit Date SEPTIC SHOCK November 17, 2024 4:4 0pm SEPTIC SHOCK November 18, 2024 7:3 0am SEPTIC SHOCK November 18, 2024 7:5 1am SEPTIC SHOCK November 19, 2024 7:17 am SEPTIC SHOCK November 19, 2024 7:40 am SEPTIC SHOCK November 20, 2024 8:41 am SEPTIC SHOCK November 20, 2024 9:02 am SEPTIC SHOCK November 21, 2024 9:40 am SEPTIC SHOCK November 21, 2024 10:1 3am SEPTIC SHOCK November 22, 2024 9:00 am SEPTIC SHOCK November 23, 2024 7:48 am SEPTIC SHOCK November 24, 2024 8:44 am SEVERE BACK PAIN READIATING INTO HIPS W/ LUMBAR December 24, 2024 7:55pm Reason for Visit Admit Date NAT (acute kidney injury) November 17 4:40pm Septic shock November 17, 2024 4:4 0pm Shock November 17, 2024 4:4 0pm Ambulatory dysfunction December 24, 2024 7:5 5pm Back pain December 24, 2024 7:55pm Chronic anticoagulation December 24, 2024 7: 55pm Closed compression fracture of lumbosacr al spine December 24, 2024 7:55pm Generalized weakness December 24, 2024 7:55p m Inability to perform activities of daily living December 24, 2024 7:55pm Overweight (BMI 25.0-29.9) December 24, 2024 7:55pm Paroxysmal atrial fibrillation December 24, 2024 7:55pm Unable to care for self December 24, 2024 7: 55pm Chief Complaint Admit Date SEPTIC SHOCK November 17, 2024 4:4 0pm SEPTIC SHOCK November 18, 2024 7:3 0am SEPTIC SHOCK November 18, 2024 7:5 1am SEPTIC SHOCK November 19, 2024 7:17 am SEPTIC SHOCK November 19, 2024 7:40 am SEPTIC SHOCK November 20, 2024 8:41 am SEPTIC SHOCK November 20, 2024 9:02 am SEPTIC SHOCK November 21, 2024 9:40 am SEPTIC SHOCK November 21, 2024 10:1 3am SEPTIC SHOCK November 22, 2024 9:00 am SEPTIC SHOCK November 23, 2024 7:48 am SEPTIC SHOCK November 24, 2024 8:44 am SEVERE BACK PAIN READIATING INTO HIPS W/ LUMBAR December 24, 2024 7:55pm SEVERE BACK PAIN READIATING INTO HIPS W/ LUMBAR December 25, 2024 7:39am SEVERE BACK PAIN READIATING INTO HIPS W/ LUMBAR December 26, 2024 12:03pm SEVERE BACK PAIN READIATING INTO HIPS W/ LUMBAR December 26, 2024 4:29pm SEVERE BACK PAIN READIATING INTO HIPS W/ LUMBAR December 27, 2024 7:43am SEVERE BACK PAIN READIATING INTO HIPS W/ LUMBAR December 27, 2024 11:03am SEVERE BACK PAIN READIATING INTO HIPS W/ LUMBAR December 28, 2024 8:16am SEVERE BACK PAIN READIATING INTO HIPS W/ LUMBAR December 29, 2024 7:25am SEVERE BACK PAIN READIATING INTO HIPS W/ LUMBAR December 30, 2024 12:05pm SEVERE BACK PAIN READIATING INTO HIPS W/ LUMBAR December 30, 2024 5:15pm SEVERE BACK PAIN READIATING INTO HIPS W/ LUMBAR December 31, 2024 1:19pm SEVERE BACK PAIN READIATING INTO HIPS W/ LUMBAR December 31, 2024 4:55pm Reason for Visit Admit Date NAT (acute kidney injury) November 17 4:40pm Septic shock November 17, 2024 4:4 0pm Shock November 17, 2024 4:4 0pm Abnormal finding on urinalysis December 24, 2024 7:55pm Acute cystitis with hematuria December 24, 2 025 7:55pm Ambulatory dysfunction December 24, 2024 7:5 5pm Back pain December 24, 2024 7:55pm Burst fracture of lumbar vertebra December 7:55pm Chronic anticoagulation December 24, 2024 7: 55pm Closed compression fracture of lumbosacr al spine December 24, 2024 7:55pm Compression fracture of L2 December 24, 2024 7:55pm Compression fracture of L3 vertebra December 24, 2024 7:55pm Generalized weakness December 24, 2024 7:55p m Inability to perform activities of daily living December 24, 2024 7:55pm Intractable back pain December 24, 2024 7:55 pm Leukocytosis December 24, 2024 7:55pm Osteopenia determined by x-ray December 24, 2024 7:55pm Overweight (BMI 25.0-29.9) December 24, 2024 7:55pm Paroxysmal atrial fibrillation December 24, 2024 7:55pm Status post kyphoplasty December 24, 2024 7: 55pm Unable to care for self December 24, 2024 7: 55pm Chief Complaint Admit Date SEPTIC SHOCK November 17, 2024 4:4 0pm SEPTIC SHOCK November 18, 2024 7:3 0am SEPTIC SHOCK November 18, 2024 7:5 1am SEPTIC SHOCK November 19, 2024 7:17 am SEPTIC SHOCK November 19, 2024 7:40 am SEPTIC SHOCK November 20, 2024 8:41 am SEPTIC SHOCK November 20, 2024 9:02 am SEPTIC SHOCK November 21, 2024 9:40 am SEPTIC SHOCK November 21, 2024 10:1 3am SEPTIC SHOCK November 22, 2024 9:00 am SEPTIC SHOCK November 23, 2024 7:48 am SEPTIC SHOCK November 24, 2024 8:44 am SEVERE BACK PAIN READIATING INTO HIPS W/ LUMBAR December 24, 2024 7:55pm SEVERE BACK PAIN READIATING INTO HIPS W/ LUMBAR December 25, 2024 7:39am SEVERE BACK PAIN READIATING INTO HIPS W/ LUMBAR December 26, 2024 12:03pm SEVERE BACK PAIN READIATING INTO HIPS W/ LUMBAR December 26, 2024 4:29pm SEVERE BACK PAIN READIATING INTO HIPS W/ LUMBAR December 27, 2024 7:43am SEVERE BACK PAIN READIATING INTO HIPS W/ LUMBAR December 27, 2024 11:03am SEVERE BACK PAIN READIATING INTO HIPS W/ LUMBAR December 28, 2024 8:16am SEVERE BACK PAIN READIATING INTO HIPS W/ LUMBAR December 29, 2024 7:25am SEVERE BACK PAIN READIATING INTO HIPS W/ LUMBAR December 30, 2024 12:05pm SEVERE BACK PAIN READIATING INTO HIPS W/ LUMBAR December 30, 2024 5:15pm SEVERE BACK PAIN READIATING INTO HIPS W/ LUMBAR December 31, 2024 1:19pm SEVERE BACK PAIN READIATING INTO HIPS W/ LUMBAR December 31, 2024 4:55pm SEVERE BACK PAIN READIATING INTO HIPS W/ LUMBAR January 01, 2025 1:26pm LUMBAR SPINE January 14, 2025 10:23 am Room 4 January 14, 2025 10:33 am Reason for Visit Admit Date NAT (acute kidney injury) November 17 4:40pm Septic shock November 17, 2024 4:4 0pm Shock November 17, 2024 4:4 0pm Status post kyphoplasty December 24, 2024 7: 55pm Abnormal finding on urinalysis December 24, 2024 7:55pm Acute cystitis with hematuria December 24 7:55pm Ambulatory dysfunction December 24, 2024 7:5 5pm Back pain December 24, 2024 7:55pm Burst fracture of lumbar vertebra December 7:55pm Chronic anticoagulation December 24, 2024 7: 55pm Closed compression fracture of lumbosacr al spine December 24, 2024 7:55pm Compression fracture of L2 December 24, 2024 7:55pm Compression fracture of L3 vertebra December 24, 2024 7:55pm Generalized weakness December 24, 2024 7:55p m Inability to perform activities of daily living December 24, 2024 7:55pm Intractable back pain December 24, 2024 7:55 pm Leukocytosis December 24, 2024 7:55pm Osteopenia determined by x-ray December 24, 2024 7:55pm Overweight (BMI 25.0-29.9) December 24, 2024 7:55pm Paroxysmal atrial fibrillation December 24, 2024 7:55pm Unable to care for self December 24, 2024 7: 55pm Additional Source Comments INFORMATION SOURCE (unrecogn ized section and content) DATE CREATED AUTHOR 02/13/2018 [facility] DATE CREATED AUTHOR AUTHOR'S ORGANIZ ATION 07/11/2021 [facility] DATE CREATED AUTHOR AUTHOR'S ORGANIZ ATION 11/17/2021 [facility] ([place]) DATE CREATED AUTHOR AUTHOR'S ORGANIZ ATION 04/30/2022 [facility] DATE CREATED AUTHOR AUTHOR'S ORGANIZ ATION 12/02/2022 [facility] DATE CREATED AUTHOR AUTHOR'S ORGANIZ ATION 10/05/2024 [facility] DATE CREATED AUTHOR AUTHOR'S ORGANIZ ATION 01/01/2025 [facility] DATE CREATED AUTHOR AUTHOR'S ORGANIZ ATION 02/03/2025 [facility] DATE CREATED AUTHOR AUTHOR'S ORGANIZ ATION 02/04/2025 [facility] DATE CREATED AUTHOR AUTHOR'S ORGANIZ ATION 02/11/2025 [facility] Reason for Visit (unrecogniz ed section and content) Reason Comments Epistaxis Reason Comments Patient Question Stop Xarelto for [...] Labs Reason Comments Received Outside Medical Records [facility] Lab draw 11/21/2022 Reason Comments 6 Month Exam Reason Onset Date Comments Surgery Scheduling 12/13/2022 Reason Onset Date Comments Refill Request 12/28/2022 Reason Comments Received Outside Medical Records [facility] Electrodiagnostic testing 12/30/2022 Reason Onset Date Comments is her surgery cancelled for 01/11? 01/05/2023 Reason Onset Date Comments Refill Request 02/13/2023 Reason Comments Medication Request Reason Comments Shortness of Breath Pulmonary Fibrosis Reason Comments Abdominal cramping Constipation lasts u p to 4 days at a time. Reason Comments Provider recommendation Specialty Diagnoses / Procedures Referred By Raudel t Referred To Contact Radiology Diagnoses Pulmonary fibrosis (HCC) Procedures CT chest wo IV contrast Loan Madrigal PA-C [address] [address] Referral ID Status Reason Start Date Expiration Date V isits Requested Visits Authorized [id number] Authorized 05/17/2023 11/13/2023 1 1 Reason Onset Date Comments Refill Request 06/12/2023 Reason Comments Spirometry Specialty Diagnoses / Procedures Referred By Contac t Referred To Contact [facility] Diagnoses Chronic obstructive pulmonary disease, unspecified COPD type (HCC) Procedures LUNG DIFFUSION CAPACITY (DLCO) DIFFUSING CAPACITY Keely Givens MD [address] [place] [address] Respiratory [place] [phone] Referral ID Status Reason Start Date Expiration Date V isits Requested Visits Authorized [id number] Closed Auto-Generate d Referral 06/01/2023 06/30/2024 1 1 Specialty Diagnoses / Procedures Referred By Contac t Referred To Contact [facility] Diagnoses Chronic obstructive pulmonary disease, unspecified COPD type (HCC) Procedures SPIROMETRY WITH DILATOR IF OBSTRUCTED BRNCDILAT RSPSE SPMTRY PRE&POST-BRNCDILAT ADMN Keely Givens MD [address] [facility] [place] [address] [place] [phone] Referral ID Status Reason Start Date Expiration Date V isits Requested Visits Authorized [id number] Closed Auto-Generate d Referral 06/01/2023 06/30/2024 1 1 Reason Comments New Patient COPD Specialty Diagnoses / Procedures Referred By Contac t Referred To Contact Pulmonary and Critical Care Medicine Diagnoses Chronic obstructive pulmonary disease, unspecified COPD type (HCC) Procedures CONSULT TO PULM/CRITICAL CARE OFFICE/OUTPATIENT NEW HIGH MDM 60-74 MINUTES Ruby Prater, MAINFRAME SYSTEMS ENGINEER.ACCOUNT MANAGER TRAINEE [address] [place] [address] [address] [address] Referral ID Status Reason Start Date Expiration Date V isits Requested Visits Authorized [id number] Closed PCP Requested Referral 06/01/2023 08/20/2023 1 1 Reason Comments Received Outside Medical Records Specialty Diagnoses / Procedures Referred By Contac t Referred To Contact MR IMAGING Diagnoses Pancreatic cyst Procedures MRI PANC/IRVING WO/W IVCON MRI ABDOMEN W/O & W/CONTRAST MATERIAL Fernanda Horne PA-C [address] [place] [address] [place] [address] Referral ID Status Reason Start Date Expiration Date V isits Requested Visits Authorized [id number] Closed Auto-Generate d Referral 06/18/2023 07/17/2024 1 1 Reason Comments Med Refill Reason Onset Date Comments Refill Request 09/19/2023 Reason Comments Derm Problem Reason Onset Date Comments Population Health Navigation Outreach 11/02/2023 [employer] care gaps Reason Comments Waiting on return call and rx Reason Comments Viral Syndrome Sore throat cough he adache and week. Over the counter ASA, Reason Comments Established Patient COPD Reason Comments Medicare Wellness Exam Specialty Diagnoses / Procedures Referred By Raudel ang Referred To Contact CT IMAGING Diagnoses Interstitial pulmonary disease (HCC) Procedures CT CHEST WO IVC DIAGNOSTIC COMPUTED TOMOGRAPHY THORAX W/O Keely Amador MD [address] [place] [address] [place] [address] Referral ID Status Reason Start Date Expiration Date V isits Requested Visits Authorized [id number] Closed Auto-Generate d Referral 12/28/2023 01/26/2025 1 1 Reason Comments Results Chest CT Reason Comments Received Outside Medical Records [facility] Reason Comments Received Outside Medical Records [facility] 01/29/24 Reason Onset Date Comments Refill Request 03/27/2024 Reason Onset Date Comments Refill Request 04/04/2024 Reason Comments Received Outside Medical Records [facility] xra y 04/08/24 Reason Comments COPD Reason Comments Insurance Authorization Reason Comments chest injury Reason Comments rib pain Reason Onset Date Comments Refill Request 06/04/2024 Reason Comments Results Pain from the fall a nd asking for those results Reason Comments Back Pain Reason Onset Date Comments Refill Request 06/14/2024 Reason Comments Nurse Triage Call Reason Comments Abdominal Pain Goes through her olive k after she eats. Reason Comments Patient Question Reason Comments Radiology US Specialty Diagnoses / Procedures Referred By Raudel ang Referred To Contact US IMAGING Diagnoses Epigastric pain Procedures US ABD RIGHT UPPER QUADRANT US ABDOMINAL REAL TIME W/IMAGE LIMITED Ana Meza, MAINFRAME SYSTEMS ENGINEER.ACCOUNT MANAGER TRAINEE [address] [facility] [place] [address] [place] [address] Referral ID Status Reason Start Date Expiration Date V isits Requested Visits Authorized [id number] Closed Auto-Generate d Referral 07/10/2024 08/09/2025 1 1 Reason Comments Results Patient Question Results and her Panc reas Specialty Diagnoses / Procedures Referred By Raudel t Referred To Contact Pulmonology Diagnoses Chronic obstructive pulmonary disease, unspecified COPD type (HCC) Procedures Complete PFT study Loan Madrigal PA-C 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 [address] [facility] [address] [place] [address] Referral ID Status Reason Start Date Expiration Date V isits Requested Visits Authorized [id number] Closed Specialty Services Required 10/20/2022 10/20/2023 1 1 Reason Comments Follow-up COPD, dyspnea Reason Comments Orders Reason Comments Received Outside Medical Records [facility] Orders for oxygen. 07/30/2024 Reason Comments Established Patient CT results Abnormal Chest X-ray Reason Comments Radiology CT Specialty Diagnoses / Procedures Referred By Raudel t Referred To Contact CT IMAGING Diagnoses Lung nodules Ground glass opacity present on imaging of lung Procedures CT CHEST WO IVCON DIAGNOSTIC COMPUTED TOMOGRAPHY THORAX W/O Keely Amador MD [address] [place] [address] [place] [address] Referral ID Status Reason Start Date Expiration Date V isits Requested Visits Authorized [id number] Closed Auto-Generate d Referral 07/31/2024 02/28/2025 1 1 Reason Onset Date Comments Other 11/28/2024 Central scheduli ng Reason Comments Home Care MD to follow Reason Comments Osteoporosis Reason Onset Date Comments Home Visit 01/31/2025 Goals (unrecognized section and content) Goals may be documented in a n alternate section Care Teams (unrecognized sec tion and content) Ob Gyn Relationship Specialty Start Date End Date Nieves Frias MD PCP - General 05/07/15 Ob Gyn Relationship Specialty Start Date End Date Nieves Frias MD PCP - General 05/07/15 Ob Gyn Relationship Specialty Start Date End Date Nieves Frias MD PCP - General 05/07/15 Ob Gyn Relationship Specialty Start Date End Date Nieves Frias PCP - General Internal Medicine 07/26/16 Ob Gyn Relationship Specialty Start Date End Date Giselle Elizondo MD [address] [place] [address] [place] [address] PCP - General Family Medicine 07/05/22 Ob Gyn Relationship Specialty Start Date End Date Giselle Elizondo MD [address] [place] [address] [place] [address] PCP - General Family Medicine 07/05/22 Ob Gyn Relationship Specialty Start Date End Date Giselle Elizondo MD [address] [place] [address] [place] [address] PCP - General Family Medicine 07/05/22 Ob Gyn Relationship Specialty Start Date End Date Giselle Elizondo MD [address] [place] [address] [place], [place] [id number] PCP - General Family Medicine 07/05/22 Ob Gyn Relationship Specialty Start Date End Date Giselle Elizondo MD [address] [place] [address] [address] [place], [place] [phone] PCP - General Family Medicine 07/05/22 Ob Gyn Relationship Specialty Start Date End Date Giselle Elizondo MD [address] [place] [address] [place] [address] PCP - General Family Medicine 07/05/22 Ob Gyn Relationship Specialty Start Date End Date Giselle Elizondo MD [address] [place] [address] [place] [address] PCP - General Family Medicine 07/05/22 Ob Gyn Relationship Specialty Start Date End Date Giselle Elizondo [address] [place] [address] PCP - General Family Medicine 10/14/22 Ob Gyn Relationship Specialty Start Date End Date Giselle Elizondo MD [address] [place] [address] [place], [place] [id number] PCP - General Family Medicine 07/05/22 Team Status: Active Member Role Status Dates Dr. Nieves Frias MD Family Provider Active Dr. Harpreet Elizondo MD Primary Care Provider Active Team Status: Inactive Member Role Status Dates Dr. Harpreet Elizondo MD Primary Care Provider Active Dr. Malcom Giron MD Attending Provider, Lori stephen Active Ob Gyn Relationship Specialty Start Date End Date Giselle Elizondo [address] [place] [id number] PCP - General Family Medicine 10/14/22 Ob Gyn Relationship Specialty Start Date End Date Giselle Elizondo [address] [place] [id number] PCP - General Family Medicine 10/14/22 Ob Gyn Relationship Specialty Start Date End Date Giselle Elizondo MD [address] [facility] [address] [place], [place] [address] PCP - General Family Medicine 07/05/22 Ob Gyn Relationship Specialty Start Date End Date Giselle Elizondo MD [address] [facility] [address] [place], [place] 887561 PCP - General Family Medicine 07/05/22 Ob Gyn Relationship Specialty Start Date End Date Giselle Elizondo [address] [place], [place] 7369[address] PCP - General Family Medicine 10/14/22 Ob Gyn Relationship Specialty Start Date End Date Giselle lEizondo MD [address] [facility] [address] [place], [place] [address] PCP - General Family Medicine 07/05/22 Ob Gyn Relationship Specialty Start Date End Date Giselle Elizondo [address] [place], [place] [phone] PCP - General Family Medicine 10/14/22 Ob Gyn Relationship Specialty Start Date End Date Giselle Elizondo MD [address] [facility] [address] [place], [place] [address] PCP - General Family Medicine 07/05/22 Ob Gyn Relationship Specialty Start Date End Date Giselle Elizondo MD [address] [facility] [address] [place], [place] [phone] PCP - General Family Medicine 07/05/22 Ob Gyn Relationship Specialty Start Date End Date Giselle Elizondo [address] [place], [place] [address]206[address] PCP - General Family Medicine 10/14/22 Ob Gyn Relationship Specialty Start Date End Date Giselle Elizondo MD [address] [facility] [address] [place], [place] 742[address] PCP - General Family Medicine 07/05/22 Ob Gyn Relationship Specialty Start Date End Date Giselle Elizondo MD [address] [facility] [place] [address] PCP - General Family Medicine 07/05/22 Ob Gyn Relationship Specialty Start Date End Date Giselle Elizondo MD [address] [facility] [address] [place], [place] [address] PCP - General Family Medicine 07/05/22 Ob Gyn Relationship Specialty Start Date End Date Giselle Elizondo MD [address] [facility] [place] [address] PCP - General Family Medicine 07/05/22 Ob Gyn Relationship Specialty Start Date End Date Giselle Elizondo MD [address] [facility] [address] [place], [place] [address]31 PCP - General Family Medicine 07/05/22 Ob Gyn Relationship Specialty Start Date End Date Giselle Elizondo 1 [facility] [place] [address] PCP - General Family Medicine 10/14/22 Ob Gyn Relationship Specialty Start Date End Date Giselle Elizondo MD [address] [facility] [address] [place], [place] [phone] PCP - General Family Medicine 07/05/22 Ob Gyn Relationship Specialty Start Date End Date Giselle Elizondo MD [address] [facility] [address] [place], [place] [phone] PCP - General Family Medicine 07/05/22 Ob Gyn Relationship Specialty Start Date End Date Giselle Elizondo 1 [facility] [place] [address] PCP - General Family Medicine 10/14/22 Ob Gyn Relationship Specialty Start Date End Date Giselle Elizondo MD [address] [facility] [place] [address] PCP - General Family Medicine 07/05/22 Ob Gyn Relationship Specialty Start Date End Date Giselle Elizondo MD [address] [facility] [place] [place] [address] PCP - General Family Medicine 07/05/22 Ob Gyn Relationship Specialty Start Date End Date Giselle Elizondo MD [address] [facility] [place] [address] PCP - General Family Medicine 07/05/22 Ob Gyn Relationship Specialty Start Date End Date Giselle Elizondo MD [address] [facility] [place] [address] PCP - General Family Medicine 07/05/22 Ob Gyn Relationship Specialty Start Date End Date Giselle Elizondo MD [address] [facility] [place] [address] PCP - General Family Medicine 07/05/22 Ob Gyn Relationship Specialty Start Date End Date Giselle Elizondo MD [address] [facility] [place] [address] PCP - General Family Medicine 07/05/22 Ob Gyn Relationship Specialty Start Date End Date Giselle Elizondo MD [address] [facility] [place] [address] PCP - General Family Medicine 07/05/22 Ob Gyn Relationship Specialty Start Date End Date Giselle Elizondo MD [address] [facility] [place] [address] PCP - General Family Medicine 07/05/22 Ob Gyn Relationship Specialty Start Date End Date Giselle Elizondo MD [address] [facility] [place] [address] PCP - General Family Medicine 07/05/22 Ob Gyn Relationship Specialty Start Date End Date Giselle Elizondo MD [address] [facility] [place] [address] PCP - General Family Medicine 07/05/22 Ob Gyn Relationship Specialty Start Date End Date Giselle Elizondo MD [address] [facility] [place] [address] PCP - General Family Medicine 07/05/22 Ob Gyn Relationship Specialty Start Date End Date Giselle Elizondo MD [address] [facility] [place] [address] PCP - General Family Medicine 07/05/22 Ob Gyn Relationship Specialty Start Date End Date Giselle Elizondo MD [address] [facility] [place] [address] PCP - General Family Medicine 07/05/22 Ob Gyn Relationship Specialty Start Date End Date Giselle Elizondo MD [address] [facility] [place] [address] PCP - General Family Medicine 07/05/22 Ob Gyn Relationship Specialty Start Date End Date Giselle Elizondo MD [address] [facility] [address] [place], [place] [address] PCP - General Family Medicine 07/05/22 Ob Gyn Relationship Specialty Start Date End Date Giselle Elizondo MD [address] [facility] [address] [place], [place] [address] PCP - General Family Medicine 07/05/22 Ob Gyn Relationship Specialty Start Date End Date Giselle Elizondo [address] [facility] [place] [address] PCP - General Family Medicine 10/14/22 Ob Gyn Relationship Specialty Start Date End Date Giselle Elizondo MD [address] [facility] [place] [address] PCP - General Family Medicine 07/05/22 Ob Gyn Relationship Specialty Start Date End Date Giselle Elizondo MD [address] [facility] [place] [address] PCP - General Family Medicine 07/05/22 Ob Gyn Relationship Specialty Start Date End Date Giselle Elizondo MD [address] [facility] [place] [address] PCP - General Family Medicine 07/05/22 Ob Gyn Relationship Specialty Start Date End Date Giselle Elizondo [address] [place] [address] PCP - General Family Medicine 10/14/22 Ob Gyn Relationship Specialty Start Date End Date Giselle Elizondo [address] [place] [address] PCP - General Family Medicine 10/14/22 Ob Gyn Relationship Specialty Start Date End Date Lexi Merino MD [address] [place] [address] PCP - General 01/31/22 Ob Gyn Relationship Specialty Start Date End Date Lexi Merino MD [address] [place] [id number] PCP - General 01/31/22 Ob Gyn Relationship Specialty Start Date End Date Giselle Elizondo [address] [place] [address] PCP - General Family Medicine 10/14/22 Ob Gyn Relationship Specialty Start Date End Date Giselle Elizondo MD [address] [facility] [place] [address] PCP - General Family Medicine 07/05/22 Ana Meza APRN.ACCOUNT MANAGER TRAINEE [address] [facility] [place] [address] [employer] [facility] 07/28/24 Ob Gyn Relationship Specialty Start Date End Date Giselle Elizondo MD [address] [place] [address] [place] [address] PCP - General Family Medicine 07/05/22 Ana Meza, MAINFRAME SYSTEMS ENGINEER.ACCOUNT MANAGER TRAINEE [address] [facility] [place] [address] [employer] Internal Medicine 07/28/24 Ob Gyn Relationship Specialty Start Date End Date Giselle Elizondo MD [address] [facility] [place] [address] PCP - General Family Medicine 07/05/22 Ana Meza APRN.ACCOUNT MANAGER TRAINEE [address] [facility] [place] [address] [employer] Internal Medicine 07/28/24 Ob Gyn Relationship Specialty Start Date End Date Giselle Elizondo MD [address] [facility] [address] [place], [place] [address] PCP - General Family Medicine 07/05/22 Ana Meza APRN.ACCOUNT MANAGER TRAINEE [address] [facility] [address] [place], [place] [address] [facility] Internal Medicine 07/28/24 Ob Gyn Relationship Specialty Start Date End Date Giselle Elizondo MD [address] [facility] [address] [place], [place] [id number] PCP - General Family Medicine 07/05/22 Ana Meza, LAVELLE.ACCOUNT MANAGER TRAINEE [address] [facility] [address] [place], [place] [address] [employer] Internal Medicine 07/28/24 Team Status: Active Member Role Status Dates SILVIA GUTHRIE Primary Care Provider Active Team Status: Inactive Member Role Status Dates [place] Primary Care Provider Active Star t: August 29, 2024 End: August 29, 2024 Dr. Reji Bennett MD Attending Provider Active Start: August 29, 2024 End: August 29, 2024 Dr. Reji Bennett MD Referring Provider Active Start: August 29, 2024 End: August 29, 2024 Team Status: Active Member Role Status Dates [place] Primary Care Provider Active Star t: November 17, 2024 Dr. Reza Pedraza DO Emergency Provider Active Start: November 17, 2024 Dr. Elsy Perdomo MD Admit Provider Active Star t: November 17, 2024 Dr. Elsy Perdomo MD Attending Provider Active Start: November 17, 2024 Dr. Elsy Perdomo MD Other Provider Active Star t: November 17, 2024 Team Status: Inactive Member Role Status Dates [place] Primary Care Provider Active Star t: November 17, 2024 End: November 24, 2024 Dr. Reza Pedraza DO Emergency Provider Active Start: November 17, 2024 End: November 24, 2024 Dr. Elsy Perdomo MD Admit Provider Active Star t: November 17, 2024 End: November 24, 2024 Dr. Elsy Perdomo MD Other Provider Active Star t: November 17, 2024 End: November 24, 2024 Dr. Kevin Robles MD Attending Provider Active Start: November 17, 2024 End: November 24, 2024 Dr. Izabel Arias MD Other Provider Active Start: November 17, 2024 End: November 24, 2024 Dr. Daniel Hall MD Other Provider Active Star t: November 17, 2024 End: November 24, 2024 Team Status: Active Member Role Status Dates SILVIA GUTHRIE Primary Care Provider Active Star t: November 18, 2024 Dr. Reza Pedraza DO Emergency Provider Active Start: November 18, 2024 Dr. Elsy Perdomo MD Admit Provider Active Star t: November 18, 2024 Dr. Elsy Perdomo MD Other Provider Active Star t: November 18, 2024 Dr. Price Nolasco MD Other Provider Active Start: November 18, 2024 Dr. Fabricio Manzano MD Other Provider Active Start: November 18, 2024 Dr. Charan Crowell MD Other Provider Active Star t: November 18, 2024 Dr. Gato Givens DO Other Provider Active Start : November 18, 2024 Dr. Kevin Delatorre MD Other Provider Active Sta rt: November 18, 2024 Dr. Aden Saldivar MD Other Provider Active St art: November 18, 2024 Dr. Kp Gong MD Other Provider Active S tart: November 18, 2024 Dr. Tessa Nava MD Other Provider Active Start: November 18, 2024 Dr. Cruzito Alfaro MD Other Provider Active Start : November 18, 2024 Dr. Clayton Baig MD Other Provider Active Start: November 18, 2024 Dr. Shane Pizano MD Other Provider Active Start : November 18, 2024 Dr. Lorna Salvador MD Other Provider Active Star t: November 18, 2024 Dr. Candace Cardoso MD Other Provider Active Sta rt: November 18, 2024 Dr. Darcie Sadler MD Other Provider Active Sta rt: November 18, 2024 Dr. Jose Carlos Boyle MD Other Provider Active Star t: November 18, 2024 Dr. Jamal Mcpherson MD Other Provider Active St art: November 18, 2024 Dr. Marshal Mason MD Other Provider Active Star t: November 18, 2024 Dr. Jose James DO Other Provider Active St art: November 18, 2024 Dr. Guillermo Ramirez MD Other Provider Active Start: November 18, 2024 Dr. Irma Contreras MD Other Provider Active St art: November 18, 2024 Dr. Giovanni Jimenez DO Other Provider Active Start: November 18, 2024 Dr. Chapin Longo MD Other Provider Active Star t: November 18, 2024 Dr. Jesus Barrientos MD Other Provider Active Sta rt: November 18, 2024 Dr. Kevin Robles MD Attending Provider Active Start: November 18, 2024 Dr. Kevin Robles MD Other Provider Active Star t: November 18, 2024 Team Status: Active Member Role Status Dates [place] Primary Care Provider Active Star t: November 18, 2024 Dr. Reza Pedraza DO Emergency Provider Active Start: November 18, 2024 Dr. Elsy Perdomo MD Admit Provider Active Star t: November 18, 2024 Dr. Elsy Perdomo MD Other Provider Active Star t: November 18, 2024 Dr. Price Nolasco MD Other Provider Active Start: November 18, 2024 Dr. Fabricio Manzano MD Other Provider Active Start: November 18, 2024 Dr. Charan Crowell MD Other Provider Active Star t: November 18, 2024 Dr. Gato Givens DO Attending Provider Active S tart: November 18, 2024 Dr. Gato Givens DO Other Provider Active Start : November 18, 2024 Dr. Kevin Delatorre MD Other Provider Active Sta rt: November 18, 2024 Dr. Aden Saldivar MD Other Provider Active St art: November 18, 2024 Dr. Kp Gong MD Other Provider Active S tart: November 18, 2024 Dr. Tessa Nava MD Other Provider Active Start: November 18, 2024 Dr. Cruzito Alfaro MD Other Provider Active Start : November 18, 2024 Dr. Clayton Baig MD Other Provider Active Start: November 18, 2024 Dr. Shane Pizano MD Other Provider Active Start : November 18, 2024 Dr. Lorna Salvador MD Other Provider Active Star t: November 18, 2024 Dr. Candace Cardoso MD Other Provider Active Sta rt: November 18, 2024 Dr. Darcie Sadler MD Other Provider Active Sta rt: November 18, 2024 Dr. Jose Carlos Boyle MD Other Provider Active Star t: November 18, 2024 Dr. Jamal Mcpherson MD Other Provider Active St art: November 18, 2024 Dr. Marshal Mason MD Other Provider Active Star t: November 18, 2024 Dr. Jose James DO Other Provider Active St art: November 18, 2024 Dr. Guillermo Ramirez MD Other Provider Active Start: November 18, 2024 Dr. Irma Contreras MD Other Provider Active St art: November 18, 2024 Dr. Giovanni Jimenez DO Other Provider Active Start: November 18, 2024 Dr. Chapin Longo MD Other Provider Active Star t: November 18, 2024 Dr. Jesus Barrientos MD Other Provider Active Sta rt: November 18, 2024 Dr. Kevin Robles MD Other Provider Active Star t: November 18, 2024 Dr. Daniel Hall MD Other Provider Active Star t: November 18, 2024 Team Status: Active Member Role Status Dates Dr. Brendan Mclain MD Attending Provider Active S tart: November 18, 2024 Team Status: Active Member Role Status Dates [place] Primary Care Provider Active Star t: November 19, 2024 Dr. Reza Pedraza DO Emergency Provider Active Start: November 19, 2024 Dr. Elsy Perdomo MD Admit Provider Active Star t: November 19, 2024 Dr. Elsy Perdomo MD Other Provider Active Star t: November 19, 2024 Dr. Price Nolasco MD Other Provider Active Start: November 19, 2024 Dr. Fabricio Manzano MD Other Provider Active Start: November 19, 2024 Dr. Charan Crowell MD Other Provider Active Star t: November 19, 2024 Dr. Gato Givens , Other Provider Active Start : November 19, 2024 Dr. Kevin Delatorre MD Other Provider Active Sta rt: November 19, 2024 Dr. Aden Saldivar MD Other Provider Active St art: November 19, 2024 Dr. Kp Gong MD Other Provider Active S tart: November 19, 2024 Dr. Tessa Nava MD Other Provider Active Start: November 19, 2024 Dr. Cruzito Alfaro MD Other Provider Active Start : November 19, 2024 Dr. Clayton Baig MD Other Provider Active Start: November 19, 2024 Dr. Shane Pizano MD Other Provider Active Start : November 19, 2024 Dr. Lorna Salvador MD Other Provider Active Star t: November 19, 2024 Dr. Candace Cardoso MD Other Provider Active Sta rt: November 19, 2024 Dr. Darcie Sadler MD Other Provider Active Sta rt: November 19, 2024 Dr. Jose Carlos Boyle MD Other Provider Active Star t: November 19, 2024 Dr. Jamal Mcpherson MD Other Provider Active St art: November 19, 2024 Dr. Marshal Mason MD Other Provider Active Star t: November 19, 2024 Dr. Jose James DO Other Provider Active St art: November 19, 2024 Dr. Guillermo Ramirez MD Other Provider Active Start: November 19, 2024 Dr. Irma Contreras MD Other Provider Active St art: November 19, 2024 Dr. Giovanni Jimenez DO Other Provider Active Start: November 19, 2024 Dr. Chapin Longo MD Other Provider Active Star t: November 19, 2024 Dr. Jesus Barrientos MD Other Provider Active Sta rt: November 19, 2024 Dr. Kevin Robles MD Attending Provider Active Start: November 19, 2024 Dr. Kevin Robles MD Other Provider Active Star t: November 19, 2024 Dr. Daniel Hall MD Other Provider Active Star t: November 19, 2024 Dr. Izabel Arias MD Other Provider Active Start: November 19, 2024 Team Status: Active Member Role Status Dates [place] Primary Care Provider Active Star t: November 19, 2024 Dr. Reza Pedraza DO Emergency Provider Active Start: November 19, 2024 Dr. Elsy Perdomo MD Admit Provider Active Star t: November 19, 2024 Dr. Elsy Perdomo MD Other Provider Active Star t: November 19, 2024 Dr. Price Nolasco MD Other Provider Active Start: November 19, 2024 Dr. Fabricio Manzano MD Other Provider Active Start: November 19, 2024 Dr. Charan Crowell MD Other Provider Active Star t: November 19, 2024 Dr. Gato Givens DO Attending Provider Active S tart: November 19, 2024 Dr. Gato Givens DO Other Provider Active Start : November 19, 2024 Dr. Kevin Delatorre MD Other Provider Active Sta rt: November 19, 2024 Dr. Aden Saldivar MD Other Provider Active St art: November 19, 2024 Dr. Kp Gong MD Other Provider Active S tart: November 19, 2024 Dr. Tessa Nava MD Other Provider Active Start: November 19, 2024 Dr. Cruzito Alfaro MD Other Provider Active Start : November 19, 2024 Dr. Clayton Baig MD Other Provider Active Start: November 19, 2024 Dr. Shane Pizano MD Other Provider Active Start : November 19, 2024 Dr. Lorna Salvador MD Other Provider Active Star t: November 19, 2024 Dr. Candace Cardoso MD Other Provider Active Sta rt: November 19, 2024 Dr. Darcie Sadler MD Other Provider Active Sta rt: November 19, 2024 Dr. Jose Carlos Boyle MD Other Provider Active Star t: November 19, 2024 Dr. Jamal Mcpherson MD Other Provider Active St art: November 19, 2024 Dr. Marshal Mason MD Other Provider Active Star t: November 19, 2024 Dr. Jose James DO Other Provider Active St art: November 19, 2024 Dr. Guillermo Ramirez MD Other Provider Active Start: November 19, 2024 Dr. Irma Contreras MD Other Provider Active St art: November 19, 2024 Dr. Giovanni Jimenez DO Other Provider Active Start: November 19, 2024 Dr. Chapin Longo MD Other Provider Active Star t: November 19, 2024 Dr. Jesus Barrientos MD Other Provider Active Sta rt: November 19, 2024 Dr. Kevin Robles MD Other Provider Active Star t: November 19, 2024 Dr. Daniel [place] MD Other Provider Active Star t: November 19, 2024 Dr. Izabel Arias MD Other Provider Active Start: November 19, 2024 Team Status: Active Member Role Status Dates [place] Primary Care Provider Active Star t: November 20, 2024 Dr. Reza Pedraza DO Emergency Provider Active Start: November 20, 2024 Dr. Elsy Perdomo MD Admit Provider Active Star t: November 20, 2024 Dr. Elsy Perdomo MD Other Provider Active Star t: November 20, 2024 Dr. Kevin Robles MD Attending Provider Active Start: November 20, 2024 Dr. Kevin Robles MD Other Provider Active Star t: November 20, 2024 Dr. Price Nolasco MD Other Provider Active Start: November 20, 2024 Dr. Fabricio Manzano MD Other Provider Active Start: November 20, 2024 Dr. Charan Crowell MD Other Provider Active Star t: November 20, 2024 Dr. Gato Givens DO Other Provider Active Start : November 20, 2024 Dr. Kevin Delatorre MD Other Provider Active Sta rt: November 20, 2024 Dr. Aden Saldivar MD Other Provider Active St art: November 20, 2024 Dr. Kp Gong MD Other Provider Active S tart: November 20, 2024 Dr. Tessa Nava MD Other Provider Active Start: November 20, 2024 Dr. Cruzito Alfaro MD Other Provider Active Start : November 20, 2024 Dr. Clayton Baig MD Other Provider Active Start: November 20, 2024 Dr. Shane Pizano MD Other Provider Active Start : November 20, 2024 Dr. Lorna Salvador MD Other Provider Active Star t: November 20, 2024 Dr. Candace Cardoso MD Other Provider Active Sta rt: November 20, 2024 Dr. Darcie Sadler MD Other Provider Active Sta rt: November 20, 2024 Dr. Jose Carlos Boyle MD Other Provider Active Star t: November 20, 2024 Dr. Jamal Mcpherson MD Other Provider Active St art: November 20, 2024 Dr. Marshal Mason MD Other Provider Active Star t: November 20, 2024 Dr. Jose James , Other Provider Active St art: November 20, 2024 Dr. Guillermo Ramirez MD Other Provider Active Start: November 20, 2024 Dr. Irma Contreras MD Other Provider Active St art: November 20, 2024 Dr. Giovanni Jimenez DO Other Provider Active Start: November 20, 2024 Dr. Chapin Longo MD Other Provider Active Star t: November 20, 2024 Dr. Jesus Barrientos MD Other Provider Active Sta rt: November 20, 2024 Dr. Izabel Arias MD Other Provider Active Start: November 20, 2024 Dr. Daniel Hall MD Other Provider Active Star t: November 20, 2024 Team Status: Active Member Role Status Dates [place] Primary Care Provider Active Star t: November 20, 2024 Dr. Reza Pedraza DO Emergency Provider Active Start: November 20, 2024 Dr. Elsy Perdomo MD Admit Provider Active Star t: November 20, 2024 Dr. Elsy Perdomo MD Other Provider Active Star t: November 20, 2024 Dr. Kevin Robles MD Other Provider Active Star t: November 20, 2024 Dr. Price Nolasco MD Other Provider Active Start: November 20, 2024 Dr. Fabricio Manzano MD Other Provider Active Start: November 20, 2024 Dr. Charan Crowell MD Other Provider Active Star t: November 20, 2024 Dr. Gato Givens DO Attending Provider Active S tart: November 20, 2024 Dr. Gato Givens DO Other Provider Active Start : November 20, 2024 Dr. Kevin Delatorre MD Other Provider Active Sta rt: November 20, 2024 Dr. Aden Saldivar MD Other Provider Active St art: November 20, 2024 Dr. Kp Gong MD Other Provider Active S tart: November 20, 2024 Dr. Tessa Nava MD Other Provider Active Start: November 20, 2024 Dr. Cruzito Alfaro MD Other Provider Active Start : November 20, 2024 Dr. Clayton Baig MD Other Provider Active Start: November 20, 2024 Dr. Shane Pizano MD Other Provider Active Start : November 20, 2024 Dr. Lorna Salvador MD Other Provider Active Star t: November 20, 2024 Dr. Candaec Cardoso MD Other Provider Active Sta rt: November 20, 2024 Dr. Darcie Sadler MD Other Provider Active Sta rt: November 20, 2024 Dr. Jose Carlos Boyle MD Other Provider Active Star t: November 20, 2024 Dr. Jamal Mcpherson MD Other Provider Active St art: November 20, 2024 Dr. Marshal Mason MD Other Provider Active Star t: November 20, 2024 Dr. Jose James DO Other Provider Active St art: November 20, 2024 Dr. Guillermo Ramirez MD Other Provider Active Start: November 20, 2024 Dr. Irma Contreras MD Other Provider Active St art: November 20, 2024 Dr. Giovanni Jimenez DO Other Provider Active Start: November 20, 2024 Dr. Chapin Longo MD Other Provider Active Star t: November 20, 2024 Dr. Jesus Barrientos MD Other Provider Active Sta rt: November 20, 2024 Dr. Izabel Arias MD Other Provider Active Start: November 20, 2024 Dr. Daniel [place] MD Other Provider Active Star t: November 20, 2024 Team Status: Active Member Role Status Dates [place] Primary Care Provider Active Star t: November 21, 2024 Dr. Reza Pedraza DO Emergency Provider Active Start: November 21, 2024 Dr. Elsy Perdomo MD Admit Provider Active Star t: November 21, 2024 Dr. Elsy Perdomo MD Other Provider Active Star t: November 21, 2024 Dr. Kevin Robles MD Other Provider Active Star t: November 21, 2024 Dr. Izabel Arias MD Other Provider Active Start: November 21, 2024 Dr. Daniel [place] MD Other Provider Active Star t: November 21, 2024 Dr. Gato Givens DO Attending Provider Active S tart: November 21, 2024 Team Status: Active Member Role Status Dates SILVIA, GUTHRIE Primary Care Provider Active Star t: November 21, 2024 Dr. Reza Pedraza DO Emergency Provider Active Start: November 21, 2024 Dr. Elsy Perdomo MD Admit Provider Active Star t: November 21, 2024 Dr. Elsy Perdomo MD Other Provider Active Star t: November 21, 2024 Dr. Kevin Robles MD Attending Provider Active Start: November 21, 2024 Dr. Kevin Robles MD Other Provider Active Star t: November 21, 2024 Dr. Izabel Arias MD Other Provider Active Start: November 21, 2024 Dr. Daniel [place] MD Other Provider Active Star t: November 21, 2024 Team Status: Active Member Role Status Dates SILVIA, GUTHRIE Primary Care Provider Active Star t: November 22, 2024 Dr. Reza Pedraza DO Emergency Provider Active Start: November 22, 2024 Dr. Elsy Perdomo MD Admit Provider Active Star t: November 22, 2024 Dr. Elsy Perdomo MD Other Provider Active Star t: November 22, 2024 Dr. Kevin Robles MD Attending Provider Active Start: November 22, 2024 Dr. Kevin Robles MD Other Provider Active Star t: November 22, 2024 Dr. Izabel Arias MD Other Provider Active Start: November 22, 2024 Dr. Daniel Hall MD Other Provider Active Star t: November 22, 2024 Team Status: Active Member Role Status Dates SILVIA, GUTHRIE Primary Care Provider Active Star t: November 23, 2024 Dr. Reza Pedraza DO Emergency Provider Active Start: November 23, 2024 Dr. Elsy Perdomo MD Admit Provider Active Star t: November 23, 2024 Dr. Elsy Perdomo MD Other Provider Active Star t: November 23, 2024 Dr. Kevin Robles MD Attending Provider Active Start: November 23, 2024 Dr. Kevin Robles MD Other Provider Active Star t: November 23, 2024 Dr. Izabel Arias MD Other Provider Active Start: November 23, 2024 Dr. Daniel Hall MD Other Provider Active Star t: November 23, 2024 Team Status: Active Member Role Status Dates SILVIA, GUTHRIE Primary Care Provider Active Star t: November 24, 2024 Dr. Reza Pedraza DO Emergency Provider Active Start: November 24, 2024 Dr. Elsy Perdomo MD Admit Provider Active Star t: November 24, 2024 Dr. Elsy Perdomo MD Other Provider Active Star t: November 24, 2024 Dr. Kevin Robles MD Attending Provider Active Start: November 24, 2024 Dr. Kevin Robles MD Other Provider Active Star t: November 24, 2024 Dr. Izabel Arias MD Other Provider Active Start: November 24, 2024 Dr. Daniel [place] MD Other Provider Active Star t: November 24, 2024 Ob Gyn Relationship Specialty Start Date End Date Marty Guthrie MD [address] [place] [address] PCP - General Family Medicine 09/16/24 Ob Gyn Relationship Specialty Start Date End Date Marty Guthrie MD [address] [place] [address] PCP - General Family Medicine 10/03/24 Ob Gyn Relationship Specialty Start Date End Date Marty Guthrie MD [address] [place] [address] PCP - General Family Medicine 10/03/24 Ob Gyn Relationship Specialty Start Date End Date Marty Guthrie MD [address] [place] [address] PCP - General Family Medicine 10/03/24 Ob Gyn Relationship Specialty Start Date End Date Marty Guthrie MD [facility] [place] [place] [address] PCP - General Family Medicine 09/16/24 Ob Gyn Relationship Specialty Start Date End Date Marty Guthrie MD [address] [place] [address] PCP - General Family Medicine 1/27/25 Team Status: Active Member Role Status Dates SILVIA, GUTHRIE Primary Care Provider Active Star t: November 18, 2024 Dr. Reza Pedraza DO Emergency Provider Active Start: November 18, 2024 Dr. Elsy Perdomo MD Admit Provider Active Star t: November 18, 2024 Dr. Elsy Perdomo MD Other Provider Active Star t: November 18, 2024 Dr. Price Nolasco MD Other Provider Active Start: November 18, 2024 Dr. Fabricio Manzano MD Other Provider Active Start: November 18, 2024 Dr. Charan Crowell MD Other Provider Active Star t: November 18, 2024 Dr. Gato Givens DO Attending Provider Active S tart: November 18, 2024 Dr. Gato Givens DO Other Provider Active Start : November 18, 2024 Dr. Kevin Delatorre MD Other Provider Active Sta rt: November 18, 2024 Dr. Aden Saldivar MD Other Provider Active St art: November 18, 2024 Dr. Kp Gong MD Other Provider Active S tart: November 18, 2024 Dr. Tessa Nava MD Other Provider Active Start: November 18, 2024 Dr. Cruzito Alfaro MD Other Provider Active Start : November 18, 2024 Dr. Clayton Baig MD Other Provider Active Start: November 18, 2024 Dr. Shane Pizano MD Other Provider Active Start : November 18, 2024 Dr. Lorna Salvador MD Other Provider Active Star t: November 18, 2024 Dr. Candace Cardoso MD Other Provider Active Sta rt: November 18, 2024 Dr. Darcie Sadler MD Other Provider Active Sta rt: November 18, 2024 Dr. Jose Carlos Boyle MD Other Provider Active Star t: November 18, 2024 Dr. Jamal Mcpherson MD Other Provider Active St art: November 18, 2024 Dr. Marshal Mason MD Other Provider Active Star t: November 18, 2024 Dr. Jose James DO Other Provider Active St art: November 18, 2024 Dr. Guillermo Ramirez MD Other Provider Active Start: November 18, 2024 Dr. Irma Contreras MD Other Provider Active St art: November 18, 2024 Dr. Giovanni Jimenez DO Other Provider Active Start: November 18, 2024 Dr. Chapin Longo MD Other Provider Active Star t: November 18, 2024 Dr. Jesus Barrientos MD Other Provider Active Sta rt: November 18, 2024 Dr. Kevin Robles MD Referring Provider Active Start: November 18, 2024 Dr. Kevin Robles MD Other Provider Active Star t: November 18, 2024 Dr. Daniel Hall MD Other Provider Active Star t: November 18, 2024 Team Status: Active Member Role Status Dates [place] Primary Care Provider Active Star t: November 19, 2024 Dr. Reza Pedraza DO Emergency Provider Active Start: November 19, 2024 Dr. Elsy Perdomo MD Admit Provider Active Star t: November 19, 2024 Dr. Elsy Perdomo MD Other Provider Active Star t: November 19, 2024 Dr. Price Nolasco MD Other Provider Active Start: November 19, 2024 Dr. Fabricio Manzano MD Other Provider Active Start: November 19, 2024 Dr. Charan Crowell MD Other Provider Active Star t: November 19, 2024 Dr. Gato Givens DO Attending Provider Active S tart: November 19, 2024 Dr. Gato Givens DO Other Provider Active Start : November 19, 2024 Dr. Kevin Delatorre MD Other Provider Active Sta rt: November 19, 2024 Dr. Aden Saldivar MD Other Provider Active St art: November 19, 2024 Dr. Kp Gong MD Other Provider Active S tart: November 19, 2024 Dr. Tessa Nava MD Other Provider Active Start: November 19, 2024 Dr. Cruzito Alfaro MD Other Provider Active Start : November 19, 2024 Dr. Clayton Baig MD Other Provider Active Start: November 19, 2024 Dr. Shane Pizano MD Other Provider Active Start : November 19, 2024 Dr. Lorna Salvador MD Other Provider Active Star t: November 19, 2024 Dr. Candace Cardoso MD Other Provider Active Sta rt: November 19, 2024 Dr. Darcie Sadler MD Other Provider Active Sta rt: November 19, 2024 Dr. Jose Carlos Boyle MD Other Provider Active Star t: November 19, 2024 Dr. Jamal Mcpherson MD Other Provider Active St art: November 19, 2024 Dr. Marshal Mason MD Other Provider Active Star t: November 19, 2024 Dr. Jose James DO Other Provider Active St art: November 19, 2024 Dr. Guillermo Ramirez MD Other Provider Active Start: November 19, 2024 Dr. Irma Contreras MD Other Provider Active St art: November 19, 2024 Dr. Giovanni Jimenez DO Other Provider Active Start: November 19, 2024 Dr. Chapin Longo MD Other Provider Active Star t: November 19, 2024 Dr. Jesus Barrientos MD Other Provider Active Sta rt: November 19, 2024 Dr. Kevin Robles MD Referring Provider Active Start: November 19, 2024 Dr. Kevin Robles MD Other Provider Active Star t: November 19, 2024 Dr. Daniel Hall MD Other Provider Active Star t: November 19, 2024 Dr. Izabel Arias MD Other Provider Active Start: November 19, 2024 Team Status: Active Member Role Status Dates [place] Primary Care Provider Active Star t: November 20, 2024 Dr. Reza Pedraza DO Emergency Provider Active Start: November 20, 2024 Dr. Elsy Perdomo MD Admit Provider Active Star t: November 20, 2024 Dr. Elsy Perdomo MD Other Provider Active Star t: November 20, 2024 Dr. Kevin Robles MD Referring Provider Active Start: November 20, 2024 Dr. Kevin Robles MD Other Provider Active Star t: November 20, 2024 Dr. Price Nolasco MD Other Provider Active Start: November 20, 2024 Dr. Fabricio Manzano MD Other Provider Active Start: November 20, 2024 Dr. Charan Crowell MD Other Provider Active Star t: November 20, 2024 Dr. Gato Givens DO Attending Provider Active S tart: November 20, 2024 Dr. Gato Givens DO Other Provider Active Start : November 20, 2024 Dr. Kevin Delatorre MD Other Provider Active Sta rt: November 20, 2024 Dr. Aden Saldivar MD Other Provider Active St art: November 20, 2024 Dr. Kp Gong MD Other Provider Active S tart: November 20, 2024 Dr. Tessa Nava MD Other Provider Active Start: November 20, 2024 Dr. Cruzito Alfaro MD Other Provider Active Start : November 20, 2024 Dr. Clayton Baig MD Other Provider Active Start: November 20, 2024 Dr. Shane Pizano MD Other Provider Active Start : November 20, 2024 Dr. Lorna Salvador MD Other Provider Active Star t: November 20, 2024 Dr. Candace Cardoso MD Other Provider Active Sta rt: November 20, 2024 Dr. Darcie Sadler MD Other Provider Active Sta rt: November 20, 2024 Dr. Jose Carlos Boyle MD Other Provider Active Star t: November 20, 2024 Dr. Jamal Mcpherson MD Other Provider Active St art: November 20, 2024 Dr. Marshal Mason MD Other Provider Active Star t: November 20, 2024 Dr. Jose James DO Other Provider Active St art: November 20, 2024 Dr. Guillermo Ramirez MD Other Provider Active Start: November 20, 2024 Dr. Irma Contreras MD Other Provider Active St art: November 20, 2024 Dr. Giovanni Jimenez DO Other Provider Active Start: November 20, 2024 Dr. Chapin Longo MD Other Provider Active Star t: November 20, 2024 Dr. Jesus Barrientos MD Other Provider Active Sta rt: November 20, 2024 Dr. Izabel Arias MD Other Provider Active Start: November 20, 2024 Dr. Daniel Hall MD Other Provider Active Star t: November 20, 2024 Team Status: Active Member Role Status Dates [place] Primary Care Provider Active Star t: November 21, 2024 Dr. Reza Pedraza DO Emergency Provider Active Start: November 21, 2024 Dr. Elsy Perdomo MD Admit Provider Active Star t: November 21, 2024 Dr. Elsy Perdomo MD Other Provider Active Star t: November 21, 2024 Dr. Kevin Robles MD Referring Provider Active Start: November 21, 2024 Dr. Kevin Robles MD Other Provider Active Star t: November 21, 2024 Dr. Izabel Arias MD Other Provider Active Start: November 21, 2024 Dr. Daniel Hall MD Other Provider Active Star t: November 21, 2024 Dr. Gato Givens , DO Attending Provider Active S tart: November 21, 2024 Team Status: Active Member Role Status Dates [place] Primary Care Provider Active Star t: December 24, 2024 Oskar Camargo MD Emergency Provider Active Star t: December 24, 2024 Dr. Kevin Caballero , Admit Provider Active Start: December 24, 2024 Dr. Kevin Caballero DO Attending Provider Active Start: December 24, 2024 Ob Gyn Relationship Specialty Start Date End Date Marty Guthrie MD [address] [place], [place] [id number] PCP - General Family Medicine 10/03/24 Goldy Warren [address] [place] [id number] Referring Internal Medicine 12/31/24 Marty Guthrie MD [address] [place], [place] [id number] Home Care Provider Family Medicine 12/31/24 Team Status: Inactive Member Role Status Dates S[place] Primary Care Provider Active Star t: December 24, 2024 End: January 01, 2025 Oskar Camargo MD Emergency Provider Active Star t: December 24, 2024 End: January 01, 2025 Dr. Kevin Caballero , Admit Provider Active Start: December 24, 2024 End: January 01, 2025 Dr. Kevin Caballero DO Other Provider Active Start: December 24, 2024 End: January 01, 2025 Dr. Daniel Hall MD Other Provider Active Star t: December 24, 2024 End: January 01, 2025 Dr. Mike Malagon MD Other Provider Active Star t: December 24, 2024 End: January 01, 2025 Dr. Goldy Warren , Attending Provider Active Start: December 24, 2024 End: January 01, 2025 Dr. Sveta Macias , DO Other Provider Active Start : December 24, 2024 End: January 01, 2025 Team Status: Active Member Role Status Dates [place] Primary Care Provider Active Star t: December 25, 2024 Oskar Camargo MD Emergency Provider Active Star t: December 25, 2024 Dr. Kevin Caballero , DO Admit Provider Active Start: December 25, 2024 Dr. Kevin Caballero , DO Other Provider Active Start: December 25, 2024 Dr. Sveta Macias , DO Attending Provider Active S tart: December 25, 2024 Dr. Sveta Macias , DO Other Provider Active Start : December 25, 2024 Dr. Daniel Hall MD Other Provider Active Star t: December 25, 2024 Dr. Mike Malagon MD Other Provider Active Star t: December 25, 2024 Team Status: Active Member Role Status Dates [place] Primary Care Provider Active Star t: December 26, 2024 Oskar Camargo MD Emergency Provider Active Star t: December 26, 2024 Dr. Kevin Caballero , DO Admit Provider Active Start: December 26, 2024 Dr. Kevin Caballero , DO Other Provider Active Start: December 26, 2024 Dr. Sveta Macias , DO Attending Provider Active S tart: December 26, 2024 Dr. Sveta Macias , DO Other Provider Active Start : December 26, 2024 Dr. Daniel Hall MD Other Provider Active Star t: December 26, 2024 Dr. Mike Malagon MD Other Provider Active Star t: December 26, 2024 Team Status: Active Member Role Status Dates [place] Primary Care Provider Active Star t: December 26, 2024 Oskar Camargo MD Emergency Provider Active Star t: December 26, 2024 Dr. Kevin Caballero , DO Admit Provider Active Start: December 26, 2024 Dr. Kevin Caballero , DO Other Provider Active Start: December 26, 2024 Dr. Sveta Macias , DO Other Provider Active Start : December 26, 2024 Dr. Daniel Hall MD Other Provider Active Star t: December 26, 2024 Dr. Mike Malagon MD Attending Provider Active Start: December 26, 2024 Dr. Mike Malagon MD Other Provider Active Star t: December 26, 2024 Team Status: Active Member Role Status Dates [place] Primary Care Provider Active Star t: December 27, 2024 Oskar Camargo MD Emergency Provider Active Star t: December 27, 2024 Dr. Kevin Caballero , DO Admit Provider Active Start: December 27, 2024 Dr. Kevin Caballero , DO Other Provider Active Start: December 27, 2024 Dr. Sveta Macias , DO Attending Provider Active S tart: December 27, 2024 Dr. Sveta Macias , DO Other Provider Active Start : December 27, 2024 Dr. Daniel Hall MD Other Provider Active Star t: December 27, 2024 Dr. Mike Malagon MD Other Provider Active Star t: December 27, 2024 Team Status: Active Member Role Status Dates [place] Primary Care Provider Active Star t: December 27, 2024 Oskar Camargo MD Emergency Provider Active Star t: December 27, 2024 Dr. Kevin Caballero , DO Admit Provider Active Start: December 27, 2024 Dr. Kevin Caballero , DO Other Provider Active Start: December 27, 2024 Dr. Sveta Macias , DO Other Provider Active Start : December 27, 2024 Dr. Daniel Hall MD Other Provider Active Star t: December 27, 2024 Dr. Mike Malagon MD Other Provider Active Star t: December 27, 2024 Amairani Choudhary NP-C Attending Provider Active Start: December 27, 2024 Team Status: Active Member Role Status Dates [place] Primary Care Provider Active Star t: December 28, 2024 Oskar Camargo MD Emergency Provider Active Star t: December 28, 2024 Dr. Kevin Caballero , DO Admit Provider Active Start: December 28, 2024 Dr. Kevin Caballero , DO Other Provider Active Start: December 28, 2024 Dr. Sveta Macias , DO Attending Provider Active S tart: December 28, 2024 Dr. Sveta Macias , DO Other Provider Active Start : December 28, 2024 Dr. Daniel Hall MD Other Provider Active Star t: December 28, 2024 Dr. Mike Malagon MD Other Provider Active Star t: December 28, 2024 Team Status: Active Member Role Status Dates [place] Primary Care Provider Active Star t: December 29, 2024 Oskar Camargo MD Emergency Provider Active Star t: December 29, 2024 Dr. Kevin Caballero , DO Admit Provider Active Start: December 29, 2024 Dr. Kevin Caballero , DO Other Provider Active Start: December 29, 2024 Dr. Sveta Macias , DO Attending Provider Active S tart: December 29, 2024 Dr. Sveta Macias , DO Other Provider Active Start : December 29, 2024 Dr. Daniel Hall MD Other Provider Active Star t: December 29, 2024 Dr. Mike Malagon MD Other Provider Active Star t: December 29, 2024 Team Status: Active Member Role Status Dates [place] Primary Care Provider Active Star t: December 30, 2024 Oskar Camargo MD Emergency Provider Active Star t: December 30, 2024 Dr. Kevin Caballero , Admit Provider Active Start: December 30, 2024 Dr. Kevin Caballero , DO Other Provider Active Start: December 30, 2024 Dr. Daniel Hall MD Other Provider Active Star t: December 30, 2024 Dr. Mike Malagon MD Attending Provider Active Start: December 30, 2024 Dr. Mike Malagon MD Other Provider Active Star t: December 30, 2024 Dr. Goldy Warren , DO Other Provider Active S tart: December 30, 2024 Dr. Sveta Macias , DO Other Provider Active Start : December 30, 2024 Team Status: Active Member Role Status Dates [place] Primary Care Provider Active Star t: December 30, 2024 Oskar Camargo MD Emergency Provider Active Star t: December 30, 2024 Dr. Kevin Caballero , DO Admit Provider Active Start: December 30, 2024 Dr. Kevin Caballero , DO Other Provider Active Start: December 30, 2024 Dr. Daniel Hall MD Other Provider Active Star t: December 30, 2024 Dr. Mike Malagon MD Other Provider Active Star t: December 30, 2024 Dr. Goldy Warren , DO Attending Provider Active Start: December 30, 2024 Dr. Goldy Warren , DO Other Provider Active S tart: December 30, 2024 Dr. Sveta Macias , DO Other Provider Active Start : December 30, 2024 Team Status: Active Member Role Status Dates S[place]IA, [place] Primary Care Provider Active Star t: December 31, 2024 Oskar Camargo MD Emergency Provider Active Star t: December 31, 2024 Dr. Kevin Caballero , DO Admit Provider Active Start: December 31, 2024 Dr. Kevin Caballero , DO Other Provider Active Start: December 31, 2024 Dr. Daniel Hall MD Other Provider Active Star t: December 31, 2024 Dr. Mike Malagon MD Other Provider Active Star t: December 31, 2024 Dr. Goldy Warren , DO Other Provider Active S tart: December 31, 2024 Dr. Sveta Macias , DO Other Provider Active Start : December 31, 2024 [place] Younger Attending Provider Active Star t: December 31, 2024 Team Status: Active Member Role Status Dates [place] Primary Care Provider Active Star t: December 31, 2024 Oskar Camargo MD Emergency Provider Active Star t: December 31, 2024 Dr. Kevin Caballero , DO Admit Provider Active Start: December 31, 2024 Dr. Kevin Caballero , DO Other Provider Active Start: December 31, 2024 Dr. Daniel Hall MD Other Provider Active Star t: December 31, 2024 Dr. Mike Malagon MD Other Provider Active Star t: December 31, 2024 Dr. Goldy Warren , DO Attending Provider Active Start: December 31, 2024 Dr. Goldy Warren , DO Other Provider Active S tart: December 31, 2024 Dr. Sveta Macias , DO Other Provider Active Start : December 31, 2024 Team Status: Active Member Role Status Dates [place] Primary Care Provider Active Star t: January 01, 2025 Oskar Camargo MD Emergency Provider Active Star t: January 01, 2025 Dr. Kevin Caballero , DO Admit Provider Active Start: January 01, 2025 Dr. Kevin Caballero , DO Other Provider Active Start: January 01, 2025 Dr. Daniel Hall MD Other Provider Active Star t: January 01, 2025 Dr. Mike Malagon MD Other Provider Active Star t: January 01, 2025 Dr. Goldy Warren , DO Attending Provider Active Start: January 01, 2025 Dr. Goldy Warren , DO Other Provider Active S tart: January 01, 2025 Dr. Sveta Macias , DO Other Provider Active Start : January 01, 2025 Team Status: Active Member Role Status Dates [place] Attending Provider Active Star t: January 14, 2025 [place] Primary Care Provider Active Star t: January 14, 2025 SILVIA [place] Referring Provider Active Start: January 14, 2025 Team Status: Inactive Member Role Status Dates Dr. Brendan Mclain MD Attending Provider Active S tart: January 14, 2025 End: January 14, 2025 Team Status: Inactive Member Role Status Dates [place] Attending Provider Active Star t: January 14, 2025 End: January 14, 2025 [place] Primary Care Provider Active Star t: January 14, 2025 End: January 14, 2025 [place] Referring Provider Active Start: January 14, 2025 End: January 14, 2025 Ob Gyn Relationship Specialty Start Date End Date Marty Guthrie MD [address] [place] [address] PCP - General Family Medicine 09/16/24 Ob Gyn Relationship Specialty Start Date End Date Marty Guthrie MD [address] [place] [address] PCP - General Family Medicine 09/16/24 Ob Gyn Relationship Specialty Start Date End Date Marty Guthrie MD [address] [place] [address] PCP - General Family Medicine 09/16/24 Source Comments (unrecognize d section and content) In the event this informatio n is protected by the Federal Confidentiality of Alcohol and Drug Abuse Patient Records regulations: The Federal rules restrict any use of the information to criminally investigate or prosecute any alcohol or drug abuse patient.[facility] the event this information is protected by the Federal Confidentiality of Alcohol and Drug Abuse Patient Records regulations: The Federal rules restrict any use of the information to criminally investigate or prosecute any alcohol or drug abuse patient.[facility] HospitalIn the event this information is protected by the Federal Confidentiality of Alcohol and Drug Abuse Patient Records regulations: The Federal rules restrict any use of the information to criminally investigate or prosecute any alcohol or drug abuse patient.[facility] HospitalIn the event this information is protected by the Federal Confidentiality of Alcohol and Drug Abuse Patient Records regulations: The Federal rules restrict any use of the information to criminally investigate or prosecute any alcohol or drug abuse patient.[facility] HospitalIn the event this information is protected by the Federal Confidentiality of Alcohol and Drug Abuse Patient Records regulations: The Federal rules restrict any use of the information to criminally investigate or prosecute any alcohol or drug abuse patient.[facility] HospitalIn the event this information is protected by the Federal Confidentiality of Alcohol and Drug Abuse Patient Records regulations: The Federal rules restrict any use of the information to criminally investigate or prosecute any alcohol or drug abuse patient.[facility] HospitalIn the event this information is protected by the Federal Confidentiality of Alcohol and Drug Abuse Patient Records regulations: The Federal rules restrict any use of the information to criminally investigate or prosecute any alcohol or drug abuse patient.[facility] HospitalIn the event this information is protected by the Federal Confidentiality of Alcohol and Drug Abuse Patient Records regulations: The Federal rules restrict any use of the information to criminally investigate or prosecute any alcohol or drug abuse patient.[facility] HospitalIn the event this information is protected by the Federal Confidentiality of Alcohol and Drug Abuse Patient Records regulations: The Federal rules restrict any use of the information to criminally investigate or prosecute any alcohol or drug abuse patient.[facility] HospitalIn the event this information is protected by the Federal Confidentiality of Alcohol and Drug Abuse Patient Records regulations: The Federal rules restrict any use of the information to criminally investigate or prosecute any alcohol or drug abuse patient.[facility] HospitalIn the event this information is protected by the Federal Confidentiality of Alcohol and Drug Abuse Patient Records regulations: The Federal rules restrict any use of the information to criminally investigate or prosecute any alcohol or drug abuse patient.[facility] HospitalIn the event this information is protected by the Federal Confidentiality of Alcohol and Drug Abuse Patient Records regulations: The Federal rules restrict any use of the information to criminally investigate or prosecute any alcohol or drug abuse patient.[facility] HospitalIn the event this information is protected by the Federal Confidentiality of Alcohol and Drug Abuse Patient Records regulations: The Federal rules restrict any use of the information to criminally investigate or prosecute any alcohol or drug abuse patient.[facility] HospitalIn the event this information is protected by the Federal Confidentiality of Alcohol and Drug Abuse Patient Records regulations: The Federal rules restrict any use of the information to criminally investigate or prosecute any alcohol or drug abuse patient.[facility] HospitalIn the event this information is protected by the Federal Confidentiality of Alcohol and Drug Abuse Patient Records regulations: The Federal rules restrict any use of the information to criminally investigate or prosecute any alcohol or drug abuse patient.[facility] HospitalIn the event this information is protected by the Federal Confidentiality of Alcohol and Drug Abuse Patient Records regulations: The Federal rules restrict any use of the information to criminally investigate or prosecute any alcohol or drug abuse patient.[facility] HospitalIn the event this information is protected by the Federal Confidentiality of Alcohol and Drug Abuse Patient Records regulations: The Federal rules restrict any use of the information to criminally investigate or prosecute any alcohol or drug abuse patient.[facility] HospitalIn the event this information is protected by the Federal Confidentiality of Alcohol and Drug Abuse Patient Records regulations: The Federal rules restrict any use of the information to criminally investigate or prosecute any alcohol or drug abuse patient.[facility] HospitalIn the event this information is protected by the Federal Confidentiality of Alcohol and Drug Abuse Patient Records regulations: The Federal rules restrict any use of the information to criminally investigate or prosecute any alcohol or drug abuse patient.[facility] HospitalIn the event this information is protected by the Federal Confidentiality of Alcohol and Drug Abuse Patient Records regulations: The Federal rules restrict any use of the information to criminally investigate or prosecute any alcohol or drug abuse patient.[facility] HospitalIn the event this information is protected by the Federal Confidentiality of Alcohol and Drug Abuse Patient Records regulations: The Federal rules restrict any use of the information to criminally investigate or prosecute any alcohol or drug abuse patient.[facility] HospitalIn the event this information is protected by the Federal Confidentiality of Alcohol and Drug Abuse Patient Records regulations: The Federal rules restrict any use of the information to criminally investigate or prosecute any alcohol or drug abuse patient.[facility] HospitalIn the event this information is protected by the Federal Confidentiality of Alcohol and Drug Abuse Patient Records regulations: The Federal rules restrict any use of the information to criminally investigate or prosecute any alcohol or drug abuse patient.[facility] HospitalIn the event this information is protected by the Federal Confidentiality of Alcohol and Drug Abuse Patient Records regulations: The Federal rules restrict any use of the information to criminally investigate or prosecute any alcohol or drug abuse patient.[facility] HospitalIn the event this information is protected by the Federal Confidentiality of Alcohol and Drug Abuse Patient Records regulations: The Federal rules restrict any use of the information to criminally investigate or prosecute any alcohol or drug abuse patient.[facility] HospitalIn the event this information is protected by the Federal Confidentiality of Alcohol and Drug Abuse Patient Records regulations: The Federal rules restrict any use of the information to criminally investigate or prosecute any alcohol or drug abuse patient.[facility] HospitalIn the event this information is protected by the Federal Confidentiality of Alcohol and Drug Abuse Patient Records regulations: The Federal rules restrict any use of the information to criminally investigate or prosecute any alcohol or drug abuse patient.[facility] HospitalIn the event this information is protected by the Federal Confidentiality of Alcohol and Drug Abuse Patient Records regulations: The Federal rules restrict any use of the information to criminally investigate or prosecute any alcohol or drug abuse patient.[facility] HospitalIn the event this information is protected by the Federal Confidentiality of Alcohol and Drug Abuse Patient Records regulations: The Federal rules restrict any use of the information to criminally investigate or prosecute any alcohol or drug abuse patient.[facility] HospitalIn the event this information is protected by the Federal Confidentiality of Alcohol and Drug Abuse Patient Records regulations: The Federal rules restrict any use of the information to criminally investigate or prosecute any alcohol or drug abuse patient.[facility] HospitalIn the event this information is protected by the Federal Confidentiality of Alcohol and Drug Abuse Patient Records regulations: The Federal rules restrict any use of the information to criminally investigate or prosecute any alcohol or drug abuse patient.[facility] HospitalIn the event this information is protected by the Federal Confidentiality of Alcohol and Drug Abuse Patient Records regulations: The Federal rules restrict any use of the information to criminally investigate or prosecute any alcohol or drug abuse patient.[facility] HospitalIn the event this information is protected by the Federal Confidentiality of Alcohol and Drug Abuse Patient Records regulations: The Federal rules restrict any use of the information to criminally investigate or prosecute any alcohol or drug abuse patient.[facility] HospitalIn the event this information is protected by the Federal Confidentiality of Alcohol and Drug Abuse Patient Records regulations: The Federal rules restrict any use of the information to criminally investigate or prosecute any alcohol or drug abuse patient.[facility] HospitalIn the event this information is protected by the Federal Confidentiality of Alcohol and Drug Abuse Patient Records regulations: The Federal rules restrict any use of the information to criminally investigate or prosecute any alcohol or drug abuse patient.[facility] HospitalIn the event this information is protected by the Federal Confidentiality of Alcohol and Drug Abuse Patient Records regulations: The Federal rules restrict any use of the information to criminally investigate or prosecute any alcohol or drug abuse patient.[facility] HospitalIn the event this information is protected by the Federal Confidentiality of Alcohol and Drug Abuse Patient Records regulations: The Federal rules restrict any use of the information to criminally investigate or prosecute any alcohol or drug abuse patient.[facility] HospitalIn the event this information is protected by the Federal Confidentiality of Alcohol and Drug Abuse Patient Records regulations: The Federal rules restrict any use of the information to criminally investigate or prosecute any alcohol or drug abuse patient.[facility] HospitalIn the event this information is protected by the Federal Confidentiality of Alcohol and Drug Abuse Patient Records regulations: The Federal rules restrict any use of the information to criminally investigate or prosecute any alcohol or drug abuse patient.[facility] HospitalIn the event this information is protected by the Federal Confidentiality of Alcohol and Drug Abuse Patient Records regulations: The Federal rules restrict any use of the information to criminally investigate or prosecute any alcohol or drug abuse patient.[facility] HospitalIn the event this information is protected by the Federal Confidentiality of Alcohol and Drug Abuse Patient Records regulations: The Federal rules restrict any use of the information to criminally investigate or prosecute any alcohol or drug abuse patient.[facility] HospitalIn the event this information is protected by the Federal Confidentiality of Alcohol and Drug Abuse Patient Records regulations: The Federal rules restrict any use of the information to criminally investigate or prosecute any alcohol or drug abuse patient.[facility] HospitalIn the event this information is protected by the Federal Confidentiality of Alcohol and Drug Abuse Patient Records regulations: The Federal rules restrict any use of the information to criminally investigate or prosecute any alcohol or drug abuse patient.[facility] HospitalIn the event this information is protected by the Federal Confidentiality of Alcohol and Drug Abuse Patient Records regulations: The Federal rules restrict any use of the information to criminally investigate or prosecute any alcohol or drug abuse patient.[facility] HospitalIn the event this information is protected by the Federal Confidentiality of Alcohol and Drug Abuse Patient Records regulations: The Federal rules restrict any use of the information to criminally investigate or prosecute any alcohol or drug abuse patient.[facility] HospitalIn the event this information is protected by the Federal Confidentiality of Alcohol and Drug Abuse Patient Records regulations: The Federal rules restrict any use of the information to criminally investigate or prosecute any alcohol or drug abuse patient.[facility] HospitalIn the event this information is protected by the Federal Confidentiality of Alcohol and Drug Abuse Patient Records regulations: The Federal rules restrict any use of the information to criminally investigate or prosecute any alcohol or drug abuse patient.[facility] HospitalIn the event this information is protected by the Federal Confidentiality of Alcohol and Drug Abuse Patient Records regulations: The Federal rules restrict any use of the information to criminally investigate or prosecute any alcohol or drug abuse patient.[facility] HospitalIn the event this information is protected by the Federal Confidentiality of Alcohol and Drug Abuse Patient Records regulations: The Federal rules restrict any use of the information to criminally investigate or prosecute any alcohol or drug abuse patient.[facility] HospitalIn the event this information is protected by the Federal Confidentiality of Alcohol and Drug Abuse Patient Records regulations: The Federal rules restrict any use of the information to criminally investigate or prosecute any alcohol or drug abuse patient.[facility] HospitalIn the event this information is protected by the Federal Confidentiality of Alcohol and Drug Abuse Patient Records regulations: The Federal rules restrict any use of the information to criminally investigate or prosecute any alcohol or drug abuse patient.[facility] HospitalIn the event this information is protected by the Federal Confidentiality of Alcohol and Drug Abuse Patient Records regulations: The Federal rules restrict any use of the information to criminally investigate or prosecute any alcohol or drug abuse patient.[facility] HospitalIn the event this information is protected by the Federal Confidentiality of Alcohol and Drug Abuse Patient Records regulations: The Federal rules restrict any use of the information to criminally investigate or prosecute any alcohol or drug abuse patient.[facility] HospitalIn the event this information is protected by the Federal Confidentiality of Alcohol and Drug Abuse Patient Records regulations: The Federal rules restrict any use of the information to criminally investigate or prosecute any alcohol or drug abuse patient.[facility] HospitalIn the event this information is protected by the Federal Confidentiality of Alcohol and Drug Abuse Patient Records regulations: The Federal rules restrict any use of the information to criminally investigate or prosecute any alcohol or drug abuse patient.[facility] HospitalIn the event this information is protected by the Federal Confidentiality of Alcohol and Drug Abuse Patient Records regulations: The Federal rules restrict any use of the information to criminally investigate or prosecute any alcohol or drug abuse patient.[facility] HospitalIn the event this information is protected by the Federal Confidentiality of Alcohol and Drug Abuse Patient Records regulations: The Federal rules restrict any use of the information to criminally investigate or prosecute any alcohol or drug abuse patient.[facility] HospitalIn the event this information is protected by the Federal Confidentiality of Alcohol and Drug Abuse Patient Records regulations: The Federal rules restrict any use of the information to criminally investigate or prosecute any alcohol or drug abuse patient.[facility] HospitalIn the event this information is protected by the Federal Confidentiality of Alcohol and Drug Abuse Patient Records regulations: The Federal rules restrict any use of the information to criminally investigate or prosecute any alcohol or drug abuse patient.[facility] HospitalIn the event this information is protected by the Federal Confidentiality of Alcohol and Drug Abuse Patient Records regulations: The Federal rules restrict any use of the information to criminally investigate or prosecute any alcohol or drug abuse patient.[facility] HospitalIn the event this information is protected by the Federal Confidentiality of Alcohol and Drug Abuse Patient Records regulations: The Federal rules restrict any use of the information to criminally investigate or prosecute any alcohol or drug abuse patient.[facility] HospitalIn the event this information is protected by the Federal Confidentiality of Alcohol and Drug Abuse Patient Records regulations: The Federal rules restrict any use of the information to criminally investigate or prosecute any alcohol or drug abuse patient.[facility] HospitalIn the event this information is protected by the Federal Confidentiality of Alcohol and Drug Abuse Patient Records regulations: The Federal rules restrict any use of the information to criminally investigate or prosecute any alcohol or drug abuse patient.[facility] HospitalIn the event this information is protected by the Federal Confidentiality of Alcohol and Drug Abuse Patient Records regulations: The Federal rules restrict any use of the information to criminally investigate or prosecute any alcohol or drug abuse patient.[facility] HospitalIn the event this information is protected by the Federal Confidentiality of Alcohol and Drug Abuse Patient Records regulations: The Federal rules restrict any use of the information to criminally investigate or prosecute any alcohol or drug abuse patient.[facility] HospitalIn the event this information is protected by the Federal Confidentiality of Alcohol and Drug Abuse Patient Records regulations: The Federal rules restrict any use of the information to criminally investigate or prosecute any alcohol or drug abuse patient.[facility] HospitalIn the event this information is protected by the Federal Confidentiality of Alcohol and Drug Abuse Patient Records regulations: The Federal rules restrict any use of the information to criminally investigate or prosecute any alcohol or drug abuse patient.[facility] HospitalIn the event this information is protected by the Federal Confidentiality of Alcohol and Drug Abuse Patient Records regulations: The Federal rules restrict any use of the information to criminally investigate or prosecute any alcohol or drug abuse patient.[facility] HospitalIn the event this information is protected by the Federal Confidentiality of Alcohol and Drug Abuse Patient Records regulations: The Federal rules restrict any use of the information to criminally investigate or prosecute any alcohol or drug abuse patient.[facility] HospitalIn the event this information is protected by the Federal Confidentiality of Alcohol and Drug Abuse Patient Records regulations: The Federal rules restrict any use of the information to criminally investigate or prosecute any alcohol or drug abuse patient.[facility] HospitalIn the event this information is protected by the Federal Confidentiality of Alcohol and Drug Abuse Patient Records regulations: The Federal rules restrict any use of the information to criminally investigate or prosecute any alcohol or drug abuse patient.[facility] HospitalIn the event this information is protected by the Federal Confidentiality of Alcohol and Drug Abuse Patient Records regulations: The Federal rules restrict any use of the information to criminally investigate or prosecute any alcohol or drug abuse patient.[facility] HospitalIn the event this information is protected by the Federal Confidentiality of Alcohol and Drug Abuse Patient Records regulations: The Federal rules restrict any use of the information to criminally investigate or prosecute any alcohol or drug abuse patient.[facility] HospitalIn the event this information is protected by the Federal Confidentiality of Alcohol and Drug Abuse Patient Records regulations: The Federal rules restrict any use of the information to criminally investigate or prosecute any alcohol or drug abuse patient.[facility] HospitalIn the event this information is protected by the Federal Confidentiality of Alcohol and Drug Abuse Patient Records regulations: The Federal rules restrict any use of the information to criminally investigate or prosecute any alcohol or drug abuse patient.[facility] HospitalIn the event this information is protected by the Federal Confidentiality of Alcohol and Drug Abuse Patient Records regulations: The Federal rules restrict any use of the information to criminally investigate or prosecute any alcohol or drug abuse patient.[facility] HospitalIn the event this information is protected by the Federal Confidentiality of Alcohol and Drug Abuse Patient Records regulations: The Federal rules restrict any use of the information to criminally investigate or prosecute any alcohol or drug abuse patient.[facility] HospitalIn the event this information is protected by the Federal Confidentiality of Alcohol and Drug Abuse Patient Records regulations: The Federal rules restrict any use of the information to criminally investigate or prosecute any alcohol or drug abuse patient.[facility] HospitalIn the event this information is protected by the Federal Confidentiality of Alcohol and Drug Abuse Patient Records regulations: The Federal rules restrict any use of the information to criminally investigate or prosecute any alcohol or drug abuse patient.[facility] Scheduled Active and Recently Administ ered Medications (unrecognized section and content) Medication Order 06/05/2024 06/06/2024 06/07/2024 cyclobenzaprine (Flexeril) tablet 5 mg (COMPLETED) 5 mg, Oral, Once, On Mon06/07/24 at 1840, For 1 dose 1849 (Given - Provid er: Yamila Sanchez RN) ketorolac (Toradol) injection 30 mg (COMPLETED) 30 mg, IntraMUSCular, Once, On Mon06/07/24 at 1840, For 1 dose 1849 (Given - Provid er: Yamila Sanchez RN) FOR RECORDS PERTAINING TO PATIENTS WHO ARE [...] BE BASED ON THE PRIMARY CLINICAL RECORDS. [facility]. provides no warranty or guarantee of the accuracy or completeness of information in this document.
[2025-02-12] MEDS: Morphine 4 MG/ML Syringe IM (00:01)
[2025-02-12 00:35] VITALS: BP 146/72; PULSE 83; RESP 16; O2SAT 91
[2025-02-12 02:00] VITALS: BP 155/85; PULSE 81; RESP 16; O2SAT 91
[2025-02-12 02:12] VITALS: BP 158/89; PULSE 77; RESP 16; TEMP 36.7; O2SAT 94
== END 2025-02-12 03:32 | disposition home or self-care (01) ==
PROVIDERS: Emergency Provider Emergency Medicine; PCP Family Medicine; Visit Provider Emergency Medicine
DX: M54.50 Low back pain, unspecified (principal); M48.56XA Collapsed vertebra, not elsewhere classified, lumbar region, initial encounter for fracture; I11.0 Hypertensive heart disease with heart failure; I50.9 Heart failure, unspecified; J44.9 Chronic obstructive pulmonary disease, unspecified; I48.0 Paroxysmal atrial fibrillation; Z87.891 Personal history of nicotine dependence; Z90.710 Acquired absence of both cervix and uterus; Z90.49 Acquired absence of other specified parts of digestive tract; Z99.81 Dependence on supplemental oxygen; K21.9 Gastro-esophageal reflux disease without esophagitis; Z79.899 Other long term (current) drug therapy; Z79.01 Long term (current) use of anticoagulants; G89.29 Other chronic pain
CPT/HCPCS: 72100; 96372; 99284; A4216

== ENCOUNTER → 2025-03-08 | Outpatient (CLI) | payer MEDICARE, MEDICAID, SELFPAY ==
[2025-03-10 07:33] LABS: Mucous, Urine 0 SEEN /hpf (<or=2+)
[2025-03-10 10:27] LABS: Color, Urine Yellow (Yellow); Glucose, Dipstick 250 mg/dl (Normal); Ketone-Dipstick 5 mg/dl (Negative); Leukocyte Esterase-Dipstick 500 /ul (Negative); Nitrite-Dipstick Negative (Negative); Occult Blood-Urine 25 /ul (Negative); Protein-Dipstick 30 mg/dl (Negative); Specific Gravity, Urine 1.025 (1.002-1.030)
[2025-03-10 10:29] LABS: Urine Bilirubin Dipstick 1 mg/dL (Negative)
[2025-03-10 10:40] LABS: Calcium Oxalate Crystals Ur 2+ /hpf (<or=2+); Red Blood Cells-Urine 0-5 SEEN /hpf (0-5); Squamous Epithelial Cells - UA 0-5 SEEN /hpf (5-10)
== END | disposition home or self-care (01) ==
LOC: LABSPEC 03-10 07:32
PROVIDERS: PCP Family Medicine; Visit Provider Nurse Practitioner Family
DX: R82.90 Unspecified abnormal findings in urine (principal)
CPT/HCPCS: 81001

== ENCOUNTER 2025-04-22 18:39 | Emergency (ER) | payer MEDICARE, MEDICAID, SELFPAY ==
[2025-04-22] VITALS (7 sets, daily range): BP systolic 137–152; BP diastolic 74–91; PULSE 67–81; RESP 14–20; TEMP 36.1–37; O2SAT 94–98; BMI 28.0
--- NOTE | 2025-04-22 18:50 | RAD_ITS ---
PROCEDURE: SHOULDER MIN 2 VIEWS 04/22/2025 REASON FOR EXAM: FALL TECHNIQUE: Procedure Code: RADSH Modality: DX Procedure: SHOULDER MIN 2 VIEWS Laterality: COMPARISON: none RAD/Shoulder min 2 Views IMPRESSION: No acute fracture or dislocations. 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 No acute soft tissue abnormalities. No radiographic foreign body. Reading Location: [facility]
--- NOTE | 2025-04-22 20:02 | EKG12_ITS ---
Test Reason : DYSRHYTHMIA Blood Pressure : */* mmHG Vent. Rate : 73 BPM Atrial Rate : * BPM P-R Int : * ms QRS Dur : 74 ms QT Int : 366 ms P-R-T Axes : * 43 -9 degrees QTcB Int : 403 ms Atrial fibrillation Septal infarct , age undetermined Abnormal ECG Confirmed by Weston Sheth ([id number]), newspaper editor NABEEL GILLIS ([id number]) on 04/23/2025 10:31:19 AM Referred By: Confirmed By: Weston Sheth
--- NOTE | 2025-04-22 20:02 | RAD_ITS ---
PROCEDURE: RIGHT KNEE 4 OR MORE VIEWS 04/22/2025 REASON FOR EXAM: PAINB, TRUAMA TECHNIQUE: Procedure Code: RADKN Modality: DX Procedure: KNEE 4 OR MORE VIEWS Laterality: Right COMPARISON: None. FINDINGS: No acute fracture or dislocation. Alignment is anatomic. Relatively well preserved joint spaces. No joint effusion. Qualitative osteopenia. Mild enthesopathic spurring of the superior patellar pole. Prominent prepatellar soft tissue swelling/contusion. Atherosclerotic vascular calcifications. RAD/Knee 4 or More Views IMPRESSION: No acute fracture or dislocation. Prominent prepatellar soft tissue swelling. Reading Location: [id number]
[2025-04-22] MEDS: 0.9% Normal Saline (1000mL) 1,000 ML 100 ML IV (20:25)
--- NOTE | 2025-04-22 20:40 | CT_ITS ---
PROCEDURE: CT CHEST WITHOUT CONTRAST 04/22/2025 REASON FOR EXAM: TRAUMA, LEFT RIB PAIN TECHNIQUE: Chest CT without contrast. Coronal and Sagittal reconstruction series were provided. One or more dose reduction techniques were used (e.g., Automated exposure control, adjustment of the mA and/or kV according to patient size, use of iterative reconstruction technique RADIATION DOSE SUMMARY: DLP: 1666.87 mGycm COMPARISON: Body CT 11/17/2024. FINDINGS: LUNGS/PLEURA: No focal airspace consolidation or pulmonary contusion. Mild bibasilar dependent atelectasis. No pneumothorax. Trace bibasilar pleural effusions. Interstitial pulmonary edema. Calcified granulomas in the right lung, the largest along the right minor fissure measuring 15 mm. MEDIASTINUM: Unremarkable. No hematoma or significant lymphadenopathy. HEART and VASCULATURE: Four-chamber cardiomegaly. No pericardial effusion. Mild-moderate coronary artery calcifications. Prominent ectatic caliber of the central pulmonary arteries. Normal course and caliber of the thoracic aorta, with moderate atherosclerotic disease. UPPER ABDOMEN: No significant abnormality. BONES: Multiple bilateral nondisplaced cortical buckle fracture deformities, some of which may be acute. Chronic appearing compression fracture deformities involving T8 superior endplate, and the visualized L1 and L2 vertebrae, with kyphoplasty bone cement at L2. Associated mild exaggerated thoracic kyphosis. Mild multilevel degenerative changes of the spine elsewhere. Qualitative osteopenia. Partially imaged right shoulder arthroplasty metallic hardware. CT/Chest without Contrast IMPRESSION: 1. Multiple bilateral nondisplaced cortical buckle fracture deformities, some o f which may be acute. Correlate with point area tenderness. 2. Chronic appearing compression fractures of T8, L1 and L2, with kyphoplasty b one cement at L2, and no significant retropulsion. 3. No pneumothorax. Cardiomegaly with interstitial edema and trace basilar pleu ral effusions. Reading Location: [id number]
--- NOTE | 2025-04-22 20:40 | CT_ITS ---
PROCEDURE: BRAIN/HEAD WITHOUT CONTRAST 04/22/2025 REASON FOR EXAM: FALL TECHNIQUE: Procedure Code: CTBR Modality: CT Procedure: BRAIN/HEAD WITHOUT CONTRAST Coronal and Sagittal reconstruction series were provided. One or more dose reduction techniques were used (e.g., Automated exposure control, adjustment of the mA and/or kV according to patient size, use of iterative reconstruction technique. RADIATION DOSE SUMMARY: CTDlvol: 44 mGy DLP: 796 mGycm FINDINGS: Normal brainstem. Normal cerebellum. No hydrocephalus. There is subdural blood along the interhemispheric fissure and there is a small amount of subdural blood along the right frontal convexity without mass effect. That measures 6 mm. The bony calvarium appears intact. CT/Brain/Head without Contrast IMPRESSION: There is subdural blood along the interhemispheric fissure and there is a small amount of subdural blood along the right frontal convexity without mass effect. That measures 6 mm. Reading Location: [id number]
--- NOTE | 2025-04-22 20:40 | CT_ITS ---
PROCEDURE: SPINE CERVICAL WITHOUT CONTRAS 04/22/2025 REASON FOR EXAM: FALL TECHNIQUE: Procedure Code: CTSPC Modality: CT Procedure: SPINE CERVICAL WITHOUT CONTRAS Coronal and Sagittal reconstruction series were provided. One or more dose reduction techniques were used (e.g., Automated exposure control, adjustment of the mA and/or kV according to patient size, use of iterative reconstruction technique. RADIATION DOSE SUMMARY: CTDlvol: 45 mGy DLP: 1666 mGycm FINDINGS: Normal cervical alignment. Diffuse disc space narrowing. No compression deformity. Facet arthrosis is present without facet fracture. Degenerative changes are present at C1-C2. Normal odontoid process. No destructive osseous changes. Normal appearance of the pedicles and lamina. No visible soft tissue masses. CT/Spine Cervical without Contras IMPRESSION: Negative for cervical spine fracture Reading Location: [place] [id number]
--- NOTE | 2025-04-22 20:45 | RAD_ITS ---
PROCEDURE: LEFT HAND MIN 3 VIEWS 04/22/2025 REASON FOR EXAM: TRAUMA, PAIN TECHNIQUE: Procedure Code: BETTINA Modality: DX Procedure: HAND MIN 3 VIEWS Laterality: Left COMPARISON: None. FINDINGS: There appears to be a subtle nondisplaced fracture of the scaphoid waist. No additional acute fracture or dislocation is seen. Carpal alignment appears maintained. Diffuse qualitative osteopenia. No marked soft tissue swelling or radiopaque foreign body appreciated. RAD/Hand Min 3 Views IMPRESSION: Probable nondisplaced fracture of the left scaphoid waist. No dislocation. Reading Location: [id number]
[2025-04-22 20:56] LABS: Hematocrit 46.9 % (37-47); Hemoglobin 15.1 g/dL (12.0-15.0); Immature Granulocytes Count 0.080 X10^3/uL (0.0-0.0); Mean Corp Hgb Conc 32.2 g/dL (32-36); Mean Corpuscular Volume 102.6 fL (81-99); Mean Platelet Vol. 10.4 fl (6.2-12.0); NRBC Flagged by Analyzer 0 % (0-5); Platelet Count 187 K/mm3 (150-450); RBC Distribution Width CV 13.9 % (11.6-14.6); RBC Distribution Width SD 53.5 fl (35.1-43.9); Red Blood Count 4.57 M/mm3 (4.2-5.4); White Blood Count 10.3 K/mm3 (4.4-11.0)
--- NOTE | 2025-04-22 20:58 | EDS_ITS ---
HPI History of Present Illness Chief Complaint: Fall Informant: patient Narrative Narrative: Patient is an 85-year-old female with history of COPD, psoriatic arthritis, atrial fibrillation (on Xarelto), hypertension and CHF as well as chronic pain and compression fractures presenting for evaluation after fall. Patient states she has been feeling dizzy all day long. She tried it more as spinning sensation. Was going out of her bedroom to the living room when she fell. She is not exactly sure why she fell or how she fell. She does not think she lost consciousness but she is not entirely clear on this. She states she think she landed on her left side mostly on her left shoulder. She is complaining of significant left shoulder pain. Her son helped her up and she thinks that he might have broken a rib when he was helping her out that she heard a crack on her left side. She also has injuries to her right knee and her left thumb. She did sustain a skin tear as well to her right hand. She is having significant pain at this time. She notes that she does follow with Dr. Hall for pain management and takes oxycodone as well as buprenorphine patches. She does clean her back pain but states it feels like her regular chronic back pain [facility] Medical History Low bone density Arthritis of left hip Compression fracture of L3 vertebra Osteopenia determined by x-ray Burst fracture of lumbar vertebra Compression fracture of L2 Abnormal finding on urinalysis Intractable back pain Leukocytosis Acute cystitis with hematuria Overweight (BMI 25.0-29.9) Chronic anticoagulation Paroxysmal atrial fibrillation Ambulatory dysfunction Generalized weakness Unable to care for self Inability to perform activities of daily living Closed compression fracture of lumbosacral spine Back pain Anxiety Depression Chronic pain GERD (gastroesophageal reflux disease) On home oxygen therapy Atrial fibrillation Congestive heart failure (CHF) Hypertension Shingles Psoriatic arthritis COPD (chronic obstructive pulmonary disease) A-fib Home Medications ?Medication ?Instructions ?Recorded ?Last Taken ?Type atenolol 25 mg tablet 25 mg PO DAILY Atrial fibril lation 06/26/21 12/30/24 History famotidine 20 mg tablet 20 mg PO DAILY 06/26/2102/12 History folic acid 1 mg tablet 1 mg PO DAILY supplement 02/0812/24/24 History rivaroxaban 20 mg tablet (Xarelto) 20 mg PO DAILY 02/0812/24/24 History cholecalciferol (vitamin D3) 50 50 mcg PO DAILY 12/24/24 History mcg (2,000 unit) capsule albuterol sulfate 90 mcg/actuation 2 puff inhalation Q 6H PRN dyspnea 11/18/24 Unknown History aerosol inhaler tiotropium bromide 18 mcg capsule 1 cap inhalation RUTH LY PRN 11/18/24 12/24/24 History with inhalation device (Spiriva shortness of breath with HandiHaler) risankizumab-rzaa 150 mg/mL 150 mg subcut Q90D 5 12/18/24 History subcutaneous pen injector (Skyrizi) lidocaine 5 % topical patch 2 patch topical DAILY #60 ea 01/01/25 Unknown Rx oxycodone 5 mg tablet 5 mg PO Q6H PRN PRN Pain Sco re 4-5 01/01/25 Unknown Rx Or Pre Pt/Ot 7 days #35 tabs baclofen 10 mg tablet 5 mg PO BID 04/22/25 Unknown History baclofen 5 mg tablet 5 mg PO DAILY 04/22/25 Unkno wn History oxycodone-acetaminophen 5 mg-325 1 tab PO TID 04/22/25 Unknown History mg tablet Allergy/AdvReac Type Severity Reaction Status Date / Time No Known Allergies Allergy Verified 04/22/25 18:40 Family History no significant family his Surgical History Status post kyphoplasty History of partial hysterectomy History of bladder suspension procedure History of appendectomy History of cholecystectomy H/O hernia repair Social History household members: none Smoking Status: Former smoker substance use type: does not use ROS ROS ED Constitutional Constitutional ED: Denies chills or fever(s) Eyes Eyes: Denies change in vision Cardiovascular Cardiovascular: Denies chest pain Respiratory/Chest Respiratory/Chest: Denies cough or dyspnea Gastrointestinal Gastrointestinal: Denies abdominal pain, nausea or vomiting Musculoskeletal Musculoskeletal: Reports arthralgias, back pain and neck pain Integumentary Reports Abrasions; Denies rash Neurologic Neurologic: Reports headache(s); Denies paresthesias or weakness Hematologic/Lymphatic Hematologic/Lymphatic: Reports easy bleeding, easy bruising and other Details: On Xarelto EXAM Physical Exam Const Vital Signs: 04/22/25 18:40 04/22/25 19:18 04/22/25 19:40 Temperature 96.9 F L Temperature Source Temporal Pulse Rate 79 71 Respiratory Rate 14 17 Respiratory Effort Short of Breath Respiratory Depth Normal Respiratory Pattern Normal Blood Pressure 152/77 H 140/91 H Blood Pressure Mean 102 107 Pulse Ox 98 97 Oxygen Delivery Method Room Air Nasal Cannula Nasal Cannula Oxygen Flow Rate (L/min) 2 2 04/22/25 20:00 04/22/25 21:00 04/22/25 22:00 Temperature Temperature Source Pulse Rate 67 75 73 Respiratory Rate 19 H 18 18 Respiratory Effort Respiratory Depth Respiratory Pattern Blood Pressure 151/78 H 137/74 H 146/88 H Blood Pressure Mean 102 95 107 Pulse Ox 94 95 96 Oxygen Delivery Method Nasal Cannula Nasal Cannula Nasal Cannula Oxygen Flow Rate (L/min) 2 2 2 Positive well nourished and well developed Constitutional Narrative: Patient is uncomfortable appearing General Appearance ED: well developed HEENT Reports TM's clear and moist mucous membranes HEENT Narrative: No signs of basilar skull fracture. Hematoma to the right cheek/lateral periorbital area. trauma Tympanic Membrane ED: Yes TM's clear Eyes PERRL and EOMs intact bilaterally Eyes Narrative: Subtle subconjunctival hemorrhage present on the right eye at approximately the 6 o'clock position near the edge of the iris Neck supple Neck Narrative: Diffuse tenderness but no pinpoint bony tenderness. No step-off sign present. General: tenderness Chest Wall inspection of chest normal Chest Narrative: No chest wall crepitus. Tense palpation of the left lower ribs Resp normal respiratory effort and clear to auscultation bilaterally Cardio regular rhythm Rhythm: abnormal rhythm irregularly irregular GI normal to inspection, nondistended, normoactive bowel sounds Back/Spine Back/Spine Narrative: Mild to palpation of the lumbar spine however patient states this is her chronic pain and none of that is new. No thoracic tenderness to palpation of the spinous process. Thoracic Spine / Upper Back: Negative for thoracic spinal tenderness Extremity Extremity Narrative: No obvious deformity of the extremities. Pain with palpation and general range of motion of the left shoulder. No tenderness across the clavicle on the left. No bony deformity or tenderness of the bilateral elbows or hands. There is ecchymosis of the left thumb with tenderness over the proximal phalanx. No deformity present. Normal range of motion. Normal flexion extension. Pelvis is stable. There is bruising with overlying skin tear and associated edema to the right knee. Range of motion is preserved. Diffuse tenderness present. Neuro oriented x3, CN's II-XII intact bilaterally and no sensory deficits noted Sensorium / Orientation: alert Motor Exam: strength 5/5 throughout and general weakness Psych mental status grossly normal Skin Skin Narrative: Small skin tear to the right hand as well as the right anterior knee. Scattered ecchymosis from her recent fall present. MDM MDM MDM Narrative Medical decision making narrative: Patient evaluated for injuries after fall. It is not clear if is mechanical fall or syncopal related. Patient does not recall. She is obvious signs of trauma on physical exam including bruising around her face, pain and bruising to her left wrist, bruising pain and swelling to her right knee and significant pain to her left ribs and also left shoulder pain. Differential includes arrhythmia, symptomatic anemia, mechanical fall, intracranial hemorrhage, skull fracture, cervical spine fracture, rib fracture, pulmonary contusion, pneumothorax, infection, wrist fracture, phalanx fracture, shoulder fracture, dislocation, tibial plateau fracture and patellar fracture as well as knee contusion. Patient is given Dilaudid for pain control emergency room especially as she is on chronic pain medication. CBC and BMP largely normal. Urinalysis normal not consistent with infection. EKG shows atrial fibrillation which is chronic for the patient. CT of the brain shows a subdural hemorrhage 6 mm in thickness with no mass effect. CT of the neck does not show any acute traumatic injury. CT of the chest shows multiple bilateral rib nondisplaced cortical buckle fractures some which may be acute. There are 2 need to characterize per my discussion with radiology to individually thing the ribs. There are chronic appearing compression fractures of T8, L1 and L2 with kyphoplasty at L2 and no significant retropulsion. No other acute process. Left hand x-ray shows probable nondisplaced fracture of the left scaphoid waist. No dislocation. Patient placed in a thumb spica splint for this. She does have corresponding tenderness and bruising. Knee x-ray reviewed by myself as well as radiology does not show any acute fracture or dislocation does show soft tissue swelling. Patient given Kcentra for reversal given life-threatening hemorrhage of the brain on Xarelto. Spoke with transfer center at [facility] (patient's hospital request) and with Dr. Motta. She accepts the patient to the trauma service. Will be a direct admit. Transportation pending. I did notify the patient's gra nddaughter, Anna as well as her son Julio Cesar. His phone number is updated [phone]. At this time patient is GCS of 15, is protecting her airway and remains hemodynamically stable. Will continue to monitor closely Lab Data Attestation: I reviewed the patient's lab results. Labs: Laboratory Results - last 24 hr 04/22/25 04/22/25 20:25 21:43 WBC 10.3 RBC 4.57 Hgb 15.1 H Hct 46.9 MCV 102.6 H MCH 33.0 H MCHC 32.2 RDW Std Deviation 53.5 H RDW Coeff of Mildred 13.9 Plt Count 187 MPV 10.4 Immature Gran % (Auto) 0.800 Neut % (Auto) 77.3 H Lymph % (Auto) 13.5 L [place] % (Auto) 7.5 Eos % (Auto) 0.4 Baso % (Auto) 0.5 Absolute Neuts (auto) 8.0 H Absolute Lymphs (auto) 1.39 Nucleated RBC % 0 Sodium 141 Potassium 3.8 Chloride 105 Carbon Dioxide 27.3 Anion Gap 9 BUN 19 Creatinine 0.50 L Estim Creat Clear Calc 44.08 L Est GFR (MDRD) Non-Af 93 BUN/Creatinine Ratio 37.1 H Glucose 101 H Calcium 9.3 Urine Color Yellow Urine Clarity Clear Urine pH 5.0 Ur Specific [place] 1.025 Urine Protein 15 H Urine Glucose (UA) 1000 H Urine Ketones 5 H Urine Occult Blood 10 H Urine Nitrite Negative Urine Bilirubin Negative Urine Urobilinogen Normal Ur Leukocyte Esterase Negative Urine RBC 0-5 SEEN Urine WBC 0-5 SEEN Ur Squamous Epith Cells 0-5 SEEN Urine Bacteria 0 SEEN Urine Mucus RARE Radiography Diagnostic Testing: Clinical Impression(s) from Imaging Studies Shoulder X-Ray 04/22/25 18:50 IMPRESSION: No acute fracture or dislocations. Mild to moderate degenerative changes of the left shoulder. No acute soft tissue abnormalities. No radiographic foreign body. Reading Location: [facility] Knee X-Ray 04/22/25 20:02 IMPRESSION: No acute fracture or dislocation. Prominent prepatellar soft tissue swelling. Reading Location: [facility] Brain CT 04/22/25 20:40 IMPRESSION: There is subdural blood along the interhemispheric fissure and there is a small amount of subdural blood along the right frontal convexity without mass effect. That measures 6 mm. Reading Location: [id number] Cervical Spine CT 04/22/25 20:40 IMPRESSION: Negative for cervical spine fracture Reading Location: [id number] Chest CT 04/22/25 20:40 IMPRESSION: 1. Multiple bilateral nondisplaced cortical buckle fracture deformities, some of which may be acute. Correlate with point area tenderness. 2. Chronic appearing compression fractures of T8, L1 and L2, with kyphoplasty bone cement at L2, and no significant retropulsion. 3. No pneumothorax. Cardiomegaly with interstitial edema and trace basilar pleural effusions. Reading Location: [facility] Hand X-Ray 04/22/25 20:45 IMPRESSION: Probable nondisplaced fracture of the left scaphoid waist. No dislocation. Reading Location: [facility] Rhythm Strip Rhythm Strip: A-fib Rate: 73 Ectopy: None EKG Initial EKG: Attestation: I personally reviewed and interpreted this EKG as follows: Interpretation: Atrial Fibrillation Comments: Atrial fibrillation at a rate of 73 bpm Normal axis Normal QRS Normal QTc Normal ST segment Prior EKG tracings: available for review Prior: Unchanged Management Discussion w/another healthcare provider: Furniture Decals Inspector and Radiologist Critical Care Time Critical Care Time: Yes Critical care time (excluding procedures): 30-74 minutes (45), Discussing w/Patient &/or Family/Material Cutter, Discussing w/Consultants and Arranging Admission or Transfer Discharge Plan Triage Chief Complaint: Fall ED Provider: Brisa Simms Dx/Rx/DC Orders Clinical Impression: Subdural hemorrhage, 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) use of anticoagulants, Fracture of scaphoid bone of left wrist, Rib pain on left side, Fall, Contusion of knee, right Prescriptions: No Action atenolol 25 mg tablet 25 mg PO DAILY famotidine 20 mg tablet 20 mg PO DAILY folic acid 1 mg tablet 1 mg PO DAILY Xarelto 20 mg tablet 20 mg PO DAILY cholecalciferol (vitamin D3) 50 mcg (2,000 unit) capsule 50 mcg PO DAILY albuterol sulfate 90 mcg/actuation HFA aerosol inhaler 2 puff inhalation Q6H PRN (Reason: dyspnea) tiotropium bromide [Spiriva with HandiHaler] 18 mcg capsule, w/inhalation device 1 cap inhalation DAILY PRN (Reason: shortness of breath ) oxycodone-acetaminophen 5-325 mg tablet 1 tab PO TID baclofen 10 mg tablet 5 mg PO BID baclofen 5 mg tablet 5 mg PO DAILY Skyrizi 150 mg/mL pen injector 150 mg SUBCUT Q90D Patient Comments: [NO ORIGINAL SIG] lidocaine 5 % Adhesive Patch,Medicated 2 patch topical DAILY Qty: 60 0RF Protocol: *Topical Application Instructions APPLICATION INSTRUCTIONS: Apply to painful areas of low back. Rx Instructions: Apply to area of low back pain-change daily oxycodone 5 mg Tablet 5 mg PO Q6H PRN PRN (Reason: Pain Score 4-5 Or Pre Pt/Ot) 7 Days Qty: 35 0RF Rx Instructions: 1-2 every 6 hours as needed for pain Primary Care Provider: Yumiko Michel Referrals: Yumiko Michel MD [Primary Care Provider] - Print Language: Italian Disposition Disposition: Acute Care Hospital [facility]
[2025-04-22 21:36] LABS: Anion Gap 9 (5-15); BUN 19 mg/dL (4-19); BUN/Creat Ratio 37.1 RATIO (10-20); Calcium,Total 9.3 mg/dL (7.6-11.0); Carbon Dioxide 27.3 mmol/L (21.0-32.0); Chloride 105 mmol/L (98-108); Estimated Creatinine Clearance 44.08 ml/min (50-250); Glucose 101 mg/dL (70-99); Potassium 3.8 mmol/L (3.3-5.1)
[2025-04-22 22:06] LABS: Color, Urine Yellow (Yellow); Glucose, Dipstick 1000 mg/dl (Normal); Ketone-Dipstick 5 mg/dl (Negative); Leukocyte Esterase-Dipstick Negative /ul (Negative); Nitrite-Dipstick Negative (Negative); Occult Blood-Urine 10 /ul (Negative); Protein-Dipstick 15 mg/dl (Negative); Specific Gravity, Urine 1.025 (1.002-1.030); Urine Bilirubin Dipstick Negative (Negative)
[2025-04-22] MEDS: fentaNYL 100 MCG/2 ML Ampul 50 MCG IV (22:16)
[2025-04-22] MEDS: HUM PROTHROMBIN CPLX(PCC)-LANS 3,120 UNIT in Viaflex Bag 1 BAG 469 UNIT IV (22:19)
[2025-04-22 22:21] LABS: Mucous, Urine RARE /hpf (<or=2+); Red Blood Cells-Urine 0-5 SEEN /hpf (0-5); Squamous Epithelial Cells - UA 0-5 SEEN /hpf (5-10)
[2025-04-22 23:18] LABS: Anion Gap 8 (5-15); BUN 18 mg/dL (4-19); BUN/Creat Ratio 37.5 RATIO (10-20); Calcium,Total 9.1 mg/dL (7.6-11.0); Carbon Dioxide 26.0 mmol/L (21.0-32.0); Chloride 107 mmol/L (98-108); Estimated Creatinine Clearance 44.08 ml/min (50-250); Glucose 97 mg/dL (70-99); Potassium 3.8 mmol/L (3.3-5.1)
== END 2025-04-22 22:50 | disposition short-term general hospital (02) ==
PROVIDERS: Emergency Provider Emergency Medicine; PCP Family Medicine; Visit Provider Emergency Medicine
DX: S06.5X0A Traumatic subdural hemorrhage without loss of consciousness, initial encounter (principal); I11.0 Hypertensive heart disease with heart failure; I50.9 Heart failure, unspecified; J44.9 Chronic obstructive pulmonary disease, unspecified; I48.0 Paroxysmal atrial fibrillation; S62.002A Unspecified fracture of navicular [scaphoid] bone of left wrist, initial encounter for closed fracture; G89.29 Other chronic pain; Z79.01 Long term (current) use of anticoagulants; S80.01XA Contusion of right knee, initial encounter; Z87.891 Personal history of nicotine dependence; Z90.710 Acquired absence of both cervix and uterus; S22.43XA Multiple fractures of ribs, bilateral, initial encounter for closed fracture; W18.30XA Fall on same level, unspecified, initial encounter; K21.9 Gastro-esophageal reflux disease without esophagitis; Z79.899 Other long term (current) drug therapy; Z90.49 Acquired absence of other specified parts of digestive tract
CPT/HCPCS: 70450; 71250; 72125; 73030; 73130; 73564; 80048; 81001; 85025; 93005; 96361; 96365; 96375; 99285; A4216; J7165

== ENCOUNTER 2025-04-29 18:05 | Inpatient (IN) | payer MEDICARE, MEDICAID, SELFPAY ==
[2025-04-29 18:40] VITALS: BP 141/88; PULSE 82; RESP 18; TEMP 36.9; O2SAT 95; BMI 26.5
[2025-04-29 19:05] VITALS: O2SAT 95
[2025-04-29] MEDS: Fluticasone/Salmeterol 232-14 Inhaler 1 PUFF INHALATION (21:58)
[2025-04-29 22:00] VITALS: BP 136/77; PULSE 71; RESP 16; TEMP 37.2; O2SAT 95
[2025-04-29] MEDS: Senna/Docusate Sodium 1 Tablet 2 TABLET PO (22:03)
[2025-04-29] MEDS: MELATONIN 3 MG TABLET PO (22:03)
[2025-04-30 06:00] VITALS: BP 142/86; PULSE 76; RESP 16; TEMP 37.1; O2SAT 92
[2025-04-30] MEDS: Umeclidinium Bromide Inhaler 1 PUFF INHALATION (06:07)
[2025-04-30] MEDS: Lidocaine 5% Patch 2 PATCH TOPICAL (06:07)
[2025-04-30] MEDS: Fluticasone/Salmeterol 232-14 Inhaler 1 PUFF INHALATION ×2 (08:00→21:00)
[2025-04-30] MEDS: Senna/Docusate Sodium 1 Tablet 2 TABLET PO ×2 (08:00→21:03)
[2025-04-30] MEDS: Cholecalciferol (VIT D3) 25 MCG TABLET (1,000 UNITS) 50 MCG PO (08:00)
[2025-04-30 08:12] LABS: Hematocrit 44.9 % (37-47); Hemoglobin 13.9 g/dL (12.0-15.0); Immature Granulocytes Count 0.060 X10^3/uL (0.0-0.0); Mean Corp Hgb Conc 31.0 g/dL (32-36); Mean Corpuscular Volume 104.9 fL (81-99); Mean Platelet Vol. 10.5 fl (6.2-12.0); NRBC Flagged by Analyzer 0 % (0-5); Platelet Count 215 K/mm3 (150-450); RBC Distribution Width CV 14.3 % (11.6-14.6); RBC Distribution Width SD 55.5 fl (35.1-43.9); Red Blood Count 4.28 M/mm3 (4.2-5.4); White Blood Count 8.1 K/mm3 (4.4-11.0)
[2025-04-30 08:52] LABS: Anion Gap 8 (5-15); BUN 20 mg/dL (4-19); BUN/Creat Ratio 51.2 RATIO (10-20); Calcium,Total 9.6 mg/dL (7.6-11.0); Carbon Dioxide 31.1 mmol/L (21.0-32.0); Chloride 103 mmol/L (98-108); Estimated Creatinine Clearance 42.95 ml/min (50-250); Glucose 119 mg/dL (70-99); Magnesium 2.1 mg/dL (1.5-2.2); Potassium 3.8 mmol/L (3.3-5.1)
--- NOTE | 2025-04-30 09:59 | HP.PCM_ITS ---
HPI - General General Date of Admission: 04/29/25 Date of Service: 04/30/25 Chief Complaint: SDH HPI Narrative VERONICA ROSALES, is a 85 YO F with a PMH of hypertension, PAF, chronic anticoagulation with Xarelto, chronic diastolic congestive heart failure with preserved ejection fraction of 60%, biatrial enlargement (left greater than right), tricuspid regurgitation, history of tobacco dependence, COPD, anxiety/depression, GERD, psoriatic arthritis (on Skyrizi every 3 months), history of shingles, history of a proximal right humeral fracture, osteoporosis (on Forteo), chronic pain syndrome (follows with Dr. Hall for pain management), CONCEPCION and thoracic/lumbar compression fractures (+ hx of kyphoplasty of L2) who presented to the emergency department at [facility] on 04/22/2025 complaining of feeling dizzy all day long. The dizziness led to a fall and she was complaining of left shoulder pain. CT scan of the brain showed a subdural hemorrhage which was 6 mm in thickness with no mass effect. CT of the chest showed multiple bilateral nondisplaced rib fractures. There were multiple vertebral compression fractures including T8, L1 and L2. Left hand x- ray showed a probable nondisplaced fracture of the left scaphoid but, when seen by ortho at previous hospital they did not feel there was a fx present. XRAYS of the right knee showed no fracture or dislocation. There was prepatellar swelling due to a superficial hematoma. She was given K Centra and transferred to [facility] to the trauma service. Consult was obtained with neurosurgery. A repeat CT head showed improvement in the right frontal subdural hematoma and there was also interhemispheric subdural hematoma noted. No surgical intervention was indicated. Neurosurgery recommended holding Xarelto but, they were okay with Lovenox 30 mg SQ every 12 hours. No significant complications while at the previous hospital. She was transferred to the acute inpt rehab unit at [facility] on 04/29/25 for 3 hours of therapy daily to restore function/independence at or near her level prior to the fall. Veronica was transferred to the acute inpt rehab unit at [facility] on 04/29/25 for 3 hours of therapy daily to restore function/independence at or near her level prior to the recent fall. All lab from this morning was personally reviewed. White blood cell count is normal at 8.1 with an unremarkable differential. Hemoglobin is 13.9 which is down from 15.1 on 04/22/25. MCV is elevated at 104.9. Platelets are within normal limits. Sodium is 08/24/2019 with a creatinine of 0.38 and a BUN/creatinine ratio of 51.2. FBS is elevated at 119. Calcium, phosphorus and magnesium are all within normal limits. B12 and folate in December 2024 were normal. TSH was 1.16 in December. Vitamin D level was normal in December 2024. Veronica slept well last night. She is having a lot of pain. Taking Oxycodone 5 mg every 4-5 hours. She is also on Butrans, scheduled Tylenol, Baclofen at and Gabapentin. She tells me that she saw a doctor to be treated for osteoporosis and she was prescribed Forteo........insurance denied and so she has not received any tx for osteoporosis. [facility] Medical History (Updated 05/01/25 @ 15:[address] Kaylee Son, ) Chronic anticoagulation Paroxysmal atrial fibrillation Vitamin D deficiency Fracture of humerus, proximal, right, closed COPD exacerbation Acute cystitis without hematuria Osteoporosis Arthritis of left hip Compression fracture of L3 vertebra Osteopenia determined by x-ray Burst fracture of lumbar vertebra Compression fracture of L2 Abnormal finding on urinalysis Intractable back pain Leukocytosis Acute cystitis with hematuria Overweight (BMI 25.0-29.9) Ambulatory dysfunction Generalized weakness Unable to care for self Inability to perform activities of daily living Closed compression fracture of lumbosacral spine Back pain Anxiety Depression Chronic pain GERD (gastroesophageal reflux disease) On home oxygen therapy Atrial fibrillation Congestive heart failure (CHF) Hypertension Psoriatic arthritis COPD (chronic obstructive pulmonary disease) A-fib Home Medications ?Medication ?Instructions ?Recorded ?Last Taken ?Type atenolol 25 mg tablet 25 mg PO DAILY Atrial fibril lation 06/26/21 12/30/24 History famotidine 20 mg tablet 20 mg PO DAILY reflux 04/29/25 History folic acid 1 mg tablet 1 mg PO DAILY supplement 02/0812/24/24 History rivaroxaban 20 mg tablet (Xarelto) 20 mg PO DAILY AFIB 06/26/21 12/24/24 History Held on 04/29/25. Instructions: Ordered cholecalciferol (vitamin D3) 50 50 mcg PO DAILY supple ment 11/17/24 12/24/24 History mcg (2,000 unit) capsule albuterol sulfate 90 mcg/actuation 2 puff inhalation Q 6H PRN dyspnea 11/18/24 Unknown History aerosol inhaler tiotropium bromide 18 mcg capsule 1 cap inhalation RUTH LY PRN 11/18/24 12/24/24 History with inhalation device (Spiriva shortness of breath with HandiHaler) risankizumab-rzaa 150 mg/mL 150 mg subcut Q90D . 12/2412/18/24 History subcutaneous pen injector (Skyrizi) Held on 04/29/25. Instructions: pt family to bring lidocaine 5 % topical patch 2 patch topical DAILY pain #60 ea 01/01/25 Unknown Rx baclofen 5 mg tablet 5 mg PO QHS pain 04/22/25 History oxycodone-acetaminophen 5 mg-325 1 tab PO TID pain 10/15 Unknown History mg tablet Held on 04/29/25. Instructions: MD Ordered acetaminophen 500 mg tablet 1,000 mg PO Q8 pain 04/29/25 History empagliflozin 10 mg tablet 10 mg PO DAILY glucose 05/15 Unknown History (Jardiance) enoxaparin 30 mg/0.3 mL 30 mg subcut Q12H dvt 04/29/25 History subcutaneous syringe (Lovenox) furosemide 20 mg tablet (Lasix) 20 mg PO DAILY PRN ruthie ght gain 04/29/25 Unknown History gabapentin 100 mg capsule 100 mg PO Q12H nerve pain 04/29/25 History ipratropium 0.5 mg-albuterol 3 mg 3 ml inhalation Q2H PRN shortness 04/29/25 Unknown History (2.5 mg base)/3 mL nebulization of breath or wheezing soln ipratropium bromide 0.02 % 1.25 ml inhalation Q6H PRN wheezing 04/29/25 Unknown History solution for inhalation melatonin 3 mg capsule 3 mg PO QHS sleep 04/29/25 U nknown History mometasone-formoterol HFA 100 2 inh inhalation BID sob 04/29/25 Unknown History mcg-5 mcg/actuation aerosol inhaler (Dulera) ondansetron 4 mg disintegrating 8 mg PO Q8H PRN nausea and vomiting 04/29/25 Unknown History tablet oxycodone 5 mg tablet 5 mg PO Q4H PRN Pain Score1- 10 04/29/25 04/29/25 History buprenorphine 5 mcg/hour weekly 1 patch transdermal Q7 D blood 04/30/25 04/24/25 History transdermal patch (Butrans) pressure OXYGEN - Supplemental ([facility] 05/01/25 Unknown History INFORMATIONAL USE ONLY) Allergy/AdvReac Type Severity Reaction Status Date / Time No Known Allergies Allergy Verified 04/22/25 18:40 Family History unable to obtain Surgical History (Updated 05/01/25 @ 15:[address] Kaylee Son, DO) Status post kyphoplasty History of partial hysterectomy History of bladder suspension procedure History of appendectomy History of cholecystectomy H/O hernia repair Social History household members: children and none housing: house Smoking Status: Former smoker substance use type: does not use Vital Signs Vital Signs Vital Signs: 04/29/25 18:40 04/29/25 19:05 04/29/25 22:00 Temperature 98.5 F Temperature Source Temporal Pulse Rate 82 Pulse Strength Normal (2+) Respiratory Rate 18 Respiratory Effort Normal Non-Labored Respiratory Depth Normal Blood Pressure 141/88 H Blood Pressure Mean 105 Blood Pressure Source Monitor Blood Pressure Position Semi-Fowlers Blood Pressure Location Right Arm Pulse Ox 95 95 Oxygen Delivery Method Nasal Cannula Nasal Cannula Oxygen Flow Rate (L/min) 1 04/29/25 22:00 04/29/25 22:00 04/30/25 06:00 Temperature 98.9 F 98.7 F Temperature Source Temporal Temporal Pulse Rate 71 76 Pulse Strength Respiratory Rate 16 16 Respiratory Effort Normal Non-Labored Respiratory Depth Normal Blood Pressure 136/77 H 142/86 H Blood Pressure Mean 96 104 Blood Pressure Source Monitor Monitor Blood Pressure Position Semi-Fowlers Sitting Blood Pressure Location Right Arm Left Arm Pulse Ox 95 95 92 Oxygen Delivery Method Nasal Cannula Nasal Cannula Nasal Cannula Oxygen Flow Rate (L/min) 1 1 04/30/25 08:08 04/30/25 08:16 Temperature Temperature Source Pulse Rate Pulse Strength Normal (2+) Respiratory Rate Respiratory Effort Respiratory Depth Blood Pressure Blood Pressure Mean Blood Pressure Source Blood Pressure Position Blood Pressure Location Pulse Ox Oxygen Delivery Method Nasal Cannula Oxygen Flow Rate (L/min) 1 Weight Weight: 136 lb Body Mass Index (BMI) 26.5 Physical Exam Const alert and oriented x3 Constitutional Narrative: appears to be in pain with any movement Multiple areas of ecchymosis on the face/extremities/torso. General Appearance: cooperative and well kempt HEENT HEENT Narrative: She has periorbital bruising of the R periorbital area/face/forehead MM are dry. No evidence of thrush No lacerations of the scalp Eyes PERRL, EOMs intact bilaterally, conjunctivae normal and no scleral icterus Eyes Narrative: No visual field cuts no discharge from the eyes and no mattering of the eyelashes. Periorbital ecchymosis on the right and some mild swelling. Neck supple and No nodes General: trachea midline Chest Chest Narrative: Splinting the left side of the chest due to pain with inspiration. Resp normal respiratory effort and clear to auscultation bilaterally Resp Narrative: No tachypneic. Desaturated on RA to 86% with ambulation. Wears O2 PRN at home.....when she is SOB Effort and Inspection: able to speak in complete sentences Cardio no gallops and no JVD Cardio Narrative: Irregular irregular rhythm with controlled ventricular response. No murmur appreciated. GI GI Narrative: Decreased bowel sounds. No guarding with palpation. Soft, mildly tympanic. No bowel movement since admission. Back/Spine Back/Spine Narrative: tender any where I touch her on the back. Extremity Extremity Narrative: There is a hematoma over the R knee with an eschar present in the center. there is a lot of bruising that extends down to the foot. There is erythema around the hematoma and there is increased warmth to touch. There is no DC from the eschar. She has pain with even light touch. Has pain with weight bearing. Skin General Skin Exam: ecchymosis Rashes: no rashes Neuro oriented x3 and CN's II-XII intact bilaterally Neuro Narrative: Can move all extremities but very painful. No visual field cuts. Tongue protrudes on the midline. No facial asymmetry. Grossly normal mentation. Not somnolent. Psych mental status grossly normal, cooperative and affect normal Psych Narrative: Scored 40 out of a possible 50 on the BCAT. This is consistent with mild cognitive impairment. Results Lab / Micro Data 04/30/25 07:35 04/30/25 07:35 Labs: Laboratory Results - last 24 hr 04/30/25 07:35: WBC 8.1, RBC 4.28, Hgb 13.9, Hct 44.9, MCV 104.9 H, MCH 32.5 H, MCHC 31.0 L, RDW Std Deviation 55.5 H, RDW Coeff of Mildred 14.3, Plt Count 215, MPV 10.5, Immature Gran % (Auto) 0.700, Neut % (Auto) 64.6, Lymph % (Auto) 23.4, [place] % (Auto) 7.5, Eos % (Auto) 3.1, Baso % (Auto) 0.7, Absolute Neuts (auto) 5.2, Absolute Lymphs (auto) 1.90, Nucleated RBC % 0, Sodium 142, Potassium 3.8, Chloride 103, Carbon Dioxide 31.1, Anion Gap 8, BUN 20 H, Creatinine 0.38 L, E stim Creat Clear Calc 42.95 L, Est GFR (MDRD) Non-Af 99, BUN/Creatinine Ratio 51.2 H, Glucose 119 H, Calcium 9.6, Phosphorus 3.5, Magnesium 2.1 Assessment & Plan Assessment/Plan (1) Physical debility: (2) Fall: QUALIFIERS: Encounter type: subsequent encounter Qualified Code(s): W19.XXXD - Unspecified fall, subsequent encounter (3) Subdural hematoma: (4) Multiple rib fractures: QUALIFIERS: Encounter type: subsequent encounter Fracture type: c losed Laterality: bilateral (5) Traumatic hematoma of right knee: (6) Cellulitis: QUALIFIERS: Site of cellulitis: extremity Site of cellulitis of extremity: lower extremity Laterality: right Qualified Code(s): L03.115 - Cellulitis of right lower limb (7) Vertebral compression fracture: QUALIFIERS: Encounter type: subsequent encounter Fracture of vertebra location: lumbar Lumbar vertebra fracture level: L1 PLAN: T8 and L1 are new. Has had a kyphoplasty of L2 in the past and fractured L3 early in 2024. (8) Osteoporosis: QUALIFIERS: Osteoporosis type: age-related Presence of current pathological fracture: with current pathological fracture Encounter type: s ubsequent encounter Fracture healing: with delayed healing Qualified Code(s): M80.00XG - Age-related osteoporosis with current pathological fracture, unspecified site, subsequent encounter for fracture with delayed healing PLAN: Severe. Not currently on tx. Vitamin D level is low but, pt tells me that she is taking 50 mcg of Vitamin D daily. (9) Exercise hypoxemia: (10) Compression fracture of L3 vertebra: QUALIFIERS: Encounter type: sequela Qualified Code(s): S32.030S - Wedge compression fracture of third lumbar vertebra, sequela PLAN: Old. Seeing Dr. Malagon for this. (11) Chronic pain: QUALIFIERS: Chronic pain type: chronic pain syndrome Qualified Code(s): G89.4 - Chronic pain syndrome PLAN: She has chronic pain syndrome which is managed by Dr. Hall from pain management. She now has acute exacerbation secondary to a fall with multiple rib fractures and a subdural hematoma. (12) Chronic anticoagulation: PLAN: On hold for SDH. (13) Paroxysmal atrial fibrillation: (14) Dehydration: (15) Psoriatic arthritis: (16) Vitamin D deficiency: (17) Mild cognitive impairment of uncertain or unknown etiology: PLAN: Scored 40 out of a possible 50 on the BCAT. PLAN: Plan PLAN PT for gait stability OT for ADL's ST for evaluation Analgesics as needed Bowel protocol Fall precautions Assess for Anxiety/Depression GI prophylaxis -famotidine. Increased from 20 mg once daily to 20 mg twice daily because we are starting Fosamax for treatment of severe osteoporosis. Will have her follow-up with Dr. Kendell Liang postdischarge to manage osteoporosis. DVT prophylaxis with Lovenox 30 mg every 12 hours. Continue to hold Xarelto due to subdural hematoma. Follow up with neurosurgery, PCP, Dr. Kendell Liang for osteoporosis, cardiology and pain management following DC from [facility] Rehab AM lab including CMP, CBC, Mag and Phos-all personally reviewed Consult Dr. Plasencia for suspected infected hematoma involving the right knee Consult Dr. Hall for assistance with pain management Start Fosamax 10 mg p.o. every morning and if she tolerates this with no exacerbation of GERD will transition to 70 mg once a week Recommend follow-up with Dr. Kendell Liang postdischarge for treatment of severe osteoporosis Continue vitamin D supplement and check a vitamin D level today. Start Keflex 500 mg p.o. 3 times daily 90 Minutes spent reviewing past diagnostic tests, lab results, vital sign trends, medical history, medications, all additional paperwork sent by the previous hospital, and ordering medications, examining the the patient and completing documentation. Charges/Coding Visit Charges Inpatient E&M: 39863 Init Hosp L3
[2025-04-30 10:27] VITALS: BP 102/74; BP 106/76; BP 108/80; PULSE 72; PULSE 74
[2025-04-30 11:18] LABS: AST(SGOT) 32 U/L (<=31); Alanine Aminotransfer ALT/SGPT 14 U/L (<=34); Albumin, Serum 3.2 g/dL (3.4-4.8); Alkaline Phosphatase 118 U/L (35-104); Bilirubin, Direct 0.43 mg/dL (0.00-0.30); Globulin 3.1 g/dL (2.2-4.2)
[2025-04-30 13:22] LABS: Vitamin D,25 Hydroxy 27.6 ng/mL (30-100)
--- NOTE | 2025-04-30 15:01 | WOUNDNOTE ---
In to see patient with Dr Plasencia and [place] Todd. patient had fallen at home. Pt states she hit her head right knee. left shoulder sore and patient states she has some broken ribs. x-ray of knee showed some soft tissue swelling. pt was on Xarelto for a-fib. this was stopped d/t brain bleed. pt is now on Lovenox per Dr Son. Dr Plasencia was asked to see patient for a hematoma to the right knee. there is a large amount of ecchymosis noted and some mild redness. the knee is quite tender to touch with some fluctuance noted. patient has an area of eschar that measures approx 1.5cm x 3cm. After getting signed consent and time out being performed, Dr Plasencia numbed the knee with lidocaine and unroofed the eschar. there was a moderate amount of clotted blood noted. no purulence or odor noted. plan is for NS wet to dry dressings BID to assist in removing the remaining hematoma. covered with dry dressings and wrapped with kerlix. applied MORALES wrap. pt tolerated well.
--- NOTE | 2025-04-30 15:04 | EX.PCM.CON.S ---
Assessment & Plan Assessment/Plan (1) Traumatic hematoma of right knee: PLAN: Bedside right knee hematoma I&D was performed by Dr. Plasencia today. Right knee cellulitis and septic joint is also in the differential however less likely given her exam. - Twice daily wet to dry dressing - Recommend 7 day course of oral Keflex - Continue to monitor for sign of knee infection. - Plastics will follow. HPI Consult Data Date of Consult: 04/30/25 HPI Narrative HPI Narrative: LESLI ROSALES, is a 85 F with PMH significant for osteoporosis, atrial fibrillation on Xarelto, CHF, COPD, chronic pain syndrome who had a dizzy episode at home and fell forward with outstretched hand and hit the side of her head on the coffee table on 04/22/25. Work up demonstrated 6mm SDH, she was reversed with Kcentra and Xarelto held. She was also noted to have multiple rib fractures, new vs chronic spine fractures. She was also noted to have right knee swelling, bruising and eschar. She complains mostly of left shoulder pain which was negative for acute bony injuries. Right knee xray was negative for bony injuries as well. Left hand xray showed possible nondisplaced fracture however orthopedics at the outside facility assessed and did not think she had one plus she does not endorse any left hand/wrist pain. Since her arrival to our rehab facility she has been ambulating with walker without major significant pain with walking on it. She denies fever, chills, drainage, numbness, tingling. She does not have history or right knee surgeries. [facility] Medical History Low bone density Arthritis of left hip Compression fracture of L3 vertebra Osteopenia determined by x-ray Burst fracture of lumbar vertebra Compression fracture of L2 Abnormal finding on urinalysis Intractable back pain Leukocytosis Acute cystitis with hematuria Overweight (BMI 25.0-29.9) Chronic anticoagulation Paroxysmal atrial fibrillation Ambulatory dysfunction Generalized weakness Unable to care for self Inability to perform activities of daily living Closed compression fracture of lumbosacral spine Back pain Anxiety Depression Chronic pain GERD (gastroesophageal reflux disease) On home oxygen therapy Atrial fibrillation Congestive heart failure (CHF) Hypertension Shingles Psoriatic arthritis COPD (chronic obstructive pulmonary disease) A-fib Home Medications ?Medication ?Instructions ?Recorded ?Last Taken ?Type atenolol 25 mg tablet 25 mg PO DAILY Atrial fibrillation 06/26/21 12/30/24 History famotidine 20 mg tablet 20 mg PO DAILY reflux 06/26/21 04/29/25 History folic acid 1 mg tablet 1 mg PO DAILY supplement 06/26/21 12/24/24 History rivaroxaban 20 mg tablet (Xarelto) 20 mg PO DAILY AFIB 06/26/21 12/24/24 History Held on 04/29/25. Instructions: MD Ordered cholecalciferol (vitamin D3) 50 50 mcg PO DAILY supplement 11/17/24 12/24/24 History mcg (2,000 unit) capsule albuterol sulfate 90 mcg/actuation 2 puff inhalation Q6H PRN dyspnea 11/18/24 Unknown History aerosol inhaler tiotropium bromide 18 mcg capsule 1 cap inhalation DAILY PRN 11/18/24 12/24/24 History with inhalation device (Spiriva shortness of breath with HandiHaler) risankizumab-rzaa 150 mg/mL 150 mg subcut Q90D . 12/24/24 12/18/24 History subcutaneous pen injector (Skyrizi) Held on 04/29/25. Instructions: pt family to bring lidocaine 5 % topical patch 2 patch topical DAILY pain #60 ea 01/01/25 Unknown Rx baclofen 5 mg tablet 5 mg PO QHS pain 04/22/25 04/28/25 History oxycodone-acetaminophen 5 mg-325 1 tab PO TID pain 04/22/25 Unknown History mg tablet Held on 04/29/25. Instructions: Ordered acetaminophen 500 mg tablet 1,000 mg PO Q8 pain 04/29/25 04/29/25 History empagliflozin 10 mg tablet 10 mg PO DAILY glucose 04/29/25 Unknown History (Jardiance) enoxaparin 30 mg/0.3 mL 30 mg subcut Q12H dvt 04/29/25 04/29/25 History subcutaneous syringe (Lovenox) furosemide 20 mg tablet (Lasix) 20 mg PO DAILY PRN weight gain 04/29/25 Unknown History gabapentin 100 mg capsule 100 mg PO Q12H nerve pain 04/29/25 04/29/25 History ipratropium 0.5 mg-albuterol 3 mg 3 ml inhalation Q2H PRN shortness 04/29/25 Unknown History (2.5 mg base)/3 mL nebulization of breath or wheezing soln ipratropium bromide 0.02 % 1.25 ml inhalation Q6H PRN wheezing 04/29/25 Unknown History solution for inhalation melatonin 3 mg capsule 3 mg PO QHS sleep 04/29/25 Unknown History mometasone-formoterol HFA 100 2 inh inhalation BID sob 04/29/25 Unknown History mcg-5 mcg/actuation aerosol inhaler (Dulera) ondansetron 4 mg disintegrating 8 mg PO Q8H PRN nausea and vomiting 04/29/25 Unknown History tablet oxycodone 5 mg tablet 5 mg PO Q4H PRN Pain Score1-10 04/29/25 04/29/25 History buprenorphine 5 mcg/hour weekly 1 patch transdermal Q7D blood 04/30/25 04/24/25 History transdermal patch (Butrans) pressure Allergy/AdvReac Type Severity Reaction Status Date / Time No Known Allergies Allergy Verified 04/22/25 18:40 Family History unable to obtain Surgical History Status post kyphoplasty History of partial hysterectomy History of bladder suspension procedure History of appendectomy History of cholecystectomy H/O hernia repair Social History household members: children and none housing: house Smoking Status: Former smoker substance use type: does not use ROS ROS Narrative General: Denies fever, chills HEENT: Denies headaches, vision changes, sore throat Cardio: Denies chest pain, leg edema Pulmonary: Denies shortness of pain, cough, wheezing GI: Denies nausea, vomiting, diarrhea Physical Exam Narrative Afebrile/VSS. Sitting in chair with left shoulder sling, Nasal cannula on. In no acute distress Ecchymosis noted on right side of her face, bilateral arms and hands Right lower extremity: Inspection: Ecchymosis and edema with 4cm by 2.5cm patellar eschar. No drainage, induration or ascending redness noted. Palpation: No increased warmth, tender to touch over the hematoma and surrounding eschar. No significant pain with passive or active knee range of motion. No lateral or posterior knee tenderness to palpation. Motor: Flexes and extends leg easily Sensation: Sensation intact to light touch Vascular: Leg is warm, dry, well perfused. After risks, benefits were discussed informed consent was obtained for incision and drainage or right knee hematoma. Dr. Plasencia administed 20cc of local anesthesia surrounding the eschar and using sterile forceps and scissors he removed the eschar. 50cc of clotted red serosanguimeous hematoma was evacuated and irritated throughouly with sterile saline solution and packed with sterile gauze and dressing. Lab / Micro Data 04/30/25 07:35 04/30/25 07:35 Labs: Laboratory Results - last 24 hr 04/30/25 07:35: WBC 8.1, RBC 4.28, Hgb 13.9, Hct 44.9, MCV 104.9 H, MCH 32.5 H, MCHC 31.0 L, RDW Std Deviation 55.5 H, RDW Coeff of Mildred 14.3, Plt Count 215, MPV 10.5, Immature Gran % (Auto) 0.700, Neut % (Auto) 64.6, Lymph % (Auto) 23.4, [place] % (Auto) 7.5, Eos % (Auto) 3.1, Baso % (Auto) 0.7, Absolute Neuts (auto) 5.2, Absolute Lymphs (auto) 1.90, Nucleated RBC % 0, Sodium 142, Potassium 3.8, Chloride 103, Carbon Dioxide 31.1, Anion Gap 8, BUN 20 H, Creatinine 0.38 L, Estim Creat Clear Calc 42.95 L, Est GFR (MDRD) Non-Af 99, BUN/Creatinine Ratio 51.2 H, Glucose 119 H, Hemoglobin A1c 5.1, Calcium 9.6, Phosphorus 3.5, Magnesium 2.1, Total Bilirubin 1.09, Direct Bilirubin 0.43 H, AST 32, ALT 14, Alkaline Phosphatase 118 H, Total Protein 6.3, Albumin 3.2 L, Globulin 3.1, Vitamin D 25-Hydroxy 27.6 L Imaging PROCEDURE: RIGHT KNEE 4 OR MORE VIEWS 04/22/2025 REASON FOR EXAM: PRACHI HAYES TECHNIQUE: Procedure Code: RADKN Modality: DX Procedure: KNEE 4 OR MORE VIEWS Laterality: Right COMPARISON: None. FINDINGS: No acute fracture or dislocation. Alignment is anatomic. Relatively well preserved joint spaces. No joint effusion. Qualitative osteopenia. Mild enthesopathic spurring of the superior patellar pole. Prominent prepatellar soft tissue swelling/contusion. Atherosclerotic vascular calcifications. RAD/Knee 4 or More Views IMPRESSION: No acute fracture or dislocation. Prominent prepatellar soft tissue swelling. Reading Location: [id number] Charges/Coding Visit Charges Office Visits / Consults: 23481 OV L2 New 15min
--- NOTE | 2025-04-30 15:07 | PCM.RU.PYE ---
Admission Information Primary Diagnosis:: Debility due to trauma from a fall with multiple fractures. Status Changes from Prescreening?: No changes Identified Actual Problem List:: Infection, Falls, Skin Intergrity, Pain, ALteration in Cmfrt, Alteration in Sleep, Mobility Impaired, Self Care Deficit, Fluid Change-Dehydration and Alteration-Leisure Activ. Potential Problem List:: DVT, Bleeding, Infection, UTI, Aspiration, Falls, Skin Integrity and Depression Risk of Complications DVT: LMWH (Lovenox 30 mg SQ every 12 hours), TYLER Hose and - (Continue to hold Xarelto because of subdural hematoma. ) Bleeding: Monitor Lab Values, Nursing to Teach Precautions for anti-coagulation therapy., Wound, if applicable, to be assessed every shift. and Stroke patients assessed for lethargy or change in status. Infection: Clinical Staff to Monitor for S/S of infection: and S/S of infection include fever, redness, warmth, etc. Urinary Tract Infection: Monitor for frequency, burning, discomfort, or incontinence. and Nursing will obtain urine sample for urinalysis and C&S when ordered. Aspiration: Clinical staff will monitor for coughing, drooling, congestion., Speech will evaluate swallowing and dsyphasia. and Nursing will monitor patient swallowing during meals. Falls: Patient will be evaluated for Fall Precautions and Patient will be placed on Fall Precautions as indicated per protocol. Skin Breakdown: Nursing will assess skin daily using assessment tool. and Nursing will place on Skin Breakdown Precautions as indicated. Pain: Clinical staff will assess patient's pain level per protocol., Medications will be given, if needed, and the pain level reassessed. and Other methods: Massage, distraction, decrease stimulus, etc. used PRN. Plan of Care Patient requires physician specializing in physical medicine and rehab oversight to provide close medical supervision of rehab issues including: Pain Management, Sleep Problems, Bowel and Bladder, Medical and co-morbidity Management, DVT prophylaxis, Rehabilitation Leadership and Coordination of treatment team Patient needs Physical Therapy: For a minimum of 1 hour and At least 5 out of 7 days Patient needs Physical Therapy to improve:: Mobility, Strengthening, Transfers, Stretching, ROM, Endurance, Stairs, Gait and Balance Patient needs Occupational Therapy: For a minimum of 1 hour and At least 5 out of 7 days Patient needs Occupational Therapy to improve ADL's incl.: Eating, Grooming, Bathing, Dressing, Toileting, Toilet transfers, Community Reintegration, Higher functioning activities, Household tasks, Adaptive Equipment, Splinting and Other activities as determined Patient requires speech therapy: For a minimum of 1 hour, At least 5 out of 7 days and - (reported trouble swallowing........ST ordered......I do not know if they will need to pick her up for therapy.) Patient requires speech therapy for: Swallowing, Cognition, Language Skills and Compensatory Strategies Patient requires 24/ Rehabilitation Nursing for: Pain Issues, Identifying and preventing risk factors, Monitoring and reporting current medical conditions, Assisting with ambulation, transfer, and all ADL's, Teaching patients about disease process and medications, Family teaching, Providing safe environment, Bowel and Bladder Issues, Skin integrity and Medication Management Patient needs Regional Retail Sales Manager/ Case Management for: Discharge Planning, Arranging Home Equipment or Services and Family Interventions Patient needs Dietary and Nutrition Services for: Adequate Nutrition, Nutritional Supplements and Nutritional Education Goals Goals Patient will remain: free from falls Patient will perform eating at: MOD I level of assist. Patient will perform bed mobility at: MOD I level of assist. Patient will complete transfers from bed to chair at: Standby Assist. Patient will ambulate: - (150 feet with a wheeled walker at standby assist on various surfaces) Patient will complete upper body dressing at: - (Set up) Patient will complete lower body dressing at: - (Supervision with adaptive equipment as needed.) Patient will complete toilet transfer at: - (Supervision) Patient will complete toileting at: - (Supervision) Patient will perform bathing at: - (Upper body bathing at supervision and lower body bathing is supervision with adaptive equipment as needed) Patient will perform Tub/Shower transfer at: - (Supervision with DME as needed) Patient will complete grooming at: - (Supervision while standing at the sink) Patient will achieve: - (1 curb step with a wheeled walker at contact-guard assist and 4 standard steps with 2 handrails at contact-guard assist to allow access to her home entrance.) Patient will have pain level of: of 3 or less Patient's skin will: remain intact Patient will receive: adequate nutrition. Discharge Planning Pt Prognosis for Sig. Practical Improv. w/in Reasonable Time: Good Estimated Length of stay (days): 21 Anticipated D/C Destination: TBD Was Preadmission Assessment Accurate?: Yes
[2025-04-30] MEDS: Lidocaine 1% /Epi 1:100 (20ml) 20 ML Vial 15 ML INFILT (16:28)
[2025-04-30 17:25] VITALS: BP 106/79; PULSE 79; RESP 16; TEMP 36.8; O2SAT 94
[2025-04-30] MEDS: Lidocaine 5% Patch 1 PATCH TOPICAL (21:02)
[2025-04-30] MEDS: MELATONIN 3 MG TABLET PO (21:03)
[2025-04-30 21:29] VITALS: PULSE 79; O2SAT 94
[2025-05-01] VITALS (9 sets, daily range): BP systolic 103–131; BP diastolic 58–78; PULSE 65–80; RESP 15–17; TEMP 36.4–37; O2SAT 87–98
[2025-05-01] MEDS: Buprenorphine 10 MCG PATCH.TDWK 1 PATCH TD (05:17)
[2025-05-01] MEDS: Umeclidinium Bromide Inhaler 1 PUFF INHALATION (05:17)
[2025-05-01] MEDS: Lidocaine 5% Patch 2 PATCH TOPICAL (05:18)
--- NOTE | 2025-05-01 08:16 | CPS ---
Pt was working with therapy at this time. Sat was 87% on RA. Placed on 2L NC at this time
--- NOTE | 2025-05-01 08:32 | PN_ITS ---
Subjective Subjective Day #2 Keflex for superficial cellulitis of the right knee. Status post incision and drainage by Dr. Plasencia on 04/30/2025. Afebrile VSS -blood pressure over the past 24 hours has ranged from 106/79 to 142/86. The last 3 blood pressures have been at goal. Maintaining appropriate oxygen saturation on RA Oral intake - FOOD good FLUIDS good She has had 2 postvoid residuals and they are both 0. Discussed with nursing - no problems that need addressed Reviewed the THERAPY notes Medication list reviewed. She had 3 doses of oxycodone 5 mg yesterday. Gram stain and culture of the wound drainage is pending. Vitamin D level yesterday was low at 27.6 despite the fact that she is supposed to be taking 50 mcg of cholecalciferol daily. Dr. Hall increased the Butrans patch to 10 mcg today and pt tells me the pain is better controlled today than yesterday. Denies lightheadedness. She is constipated and has not had a BM in a few days. Denies cough and denies SOB at rest currently. She became SOB early this morning and night nurses applied oxygen. Pulse ox with ambulation today decreased to 86% on room air. Denies dysuria. No hemoptysis. Denies chest pain/heartburn/nausea. She has a small area on the R low back that is itchy and she is worried about shingles. She tells me that she slept well last night. Echocardiogram at [facility] in October 2024 showed an ejection fraction of 60% with a normal left ventricular size. There was biatrial enlargement and mild TR. Has had CHF in the past.......possibly due to AF/RVR? Objective Data Objective Data Vital Signs: Vital Signs Temp Pulse Resp BP Pulse Ox O2 Del Method O2 Flow Rate 97.6 F L 65 15 125/70 H 87 Room Air 1 05/01/25 05:18 05/01/25 05:18 05/01/25 05:18 05/01/25 05:18 05/01/25 07:00 05/01/25 07:00 05/01/25 05:18 Oxygen Flow Rate (L/min) 1 Oxygen Delivery Method Room Air Weight: 136 lb 0.015 oz Body Mass Index (BMI) 26.5 Intake & Output: Intake and Output for Last 24 Hours 04/29/25 04/30/25 05/01/25 23:59 23:59 23:59 Intake Total 1540 / 1690 820 / 820 Output Total 375 / 375 1350 / 1350 200 / 200 Balance -375 / -375 190 / 340 620 / 620 Lab / Micro Data 04/30/25 07:35 04/30/25 07:35 Labs: Laboratory Results - last 24 hr 04/30/25 07:35: Sodium 142, Potassium 3.8, Chloride 103, Carbon Dioxide 31.1, Anion Gap 8, BUN 20 H, Creatinine 0.38 L, Estim Creat Clear Calc 42.95 L, Est GFR (MDRD) Non-Af 99, BUN/Creatinine Ratio 51.2 H, Glucose 119 H, Hemoglobin A1c 5.1, Calcium 9.6, Phosphorus 3.5, Magnesium 2.1, Total Bilirubin 1.09, Direct Bilirubin 0.43 H, AST 32, ALT 14, Alkaline Phosphatase 118 H, Total Protein 6.3, Albumin 3.2 L, Globulin 3.1, Vitamin D 25-Hydroxy 27.6 L Physical Exam Const alert Constitutional Narrative: appears tired after having 3 hours of therapy today. She awakens easily and is appropriate. Having pain and moaning with any movement but, tells me that it is better than yesterday. General Appearance: cooperative Eyes Eyes Narrative: No discharge from the eyes and no conjunctival hemorrhage or injection of the conjunctiva. Neck supple Resp normal respiratory effort Resp Narrative: Not tachypneic, not coughing. She was able to take some deep breaths without moaning in pain. The lungs anterior and lateral are clear to auscultation with no crackles or wheezes. She has no conversational dyspnea and she is not tachypneic. Cardio no murmurs and no gallops Cardio Narrative: She is in atrial fibrillation with a controlled ventricular response. GI GI Narrative: The abdomen is soft and mildly distended. There are decreased bowel sounds present. No pain with palpation of the abdomen. slightly tympanic. No BM for a few days. Extremity Extremity Narrative: Please see plastic surgery note for description of the R knee today. Skin Wound Narrative: She has a very small skin tear over the low back on the R. There is no rash and she does not have shingles. The area is not painful to touch. Assessment & Plan Assessment/Plan (1) Physical debility: (2) Fall: QUALIFIERS: Encounter type: subsequent encounter Qualified Code(s): W19.XXXD - Unspecified fall, subsequent encounter (3) Subdural hematoma: (4) Multiple rib fractures: QUALIFIERS: Encounter type: subsequent encounter Fracture type: c losed Laterality: bilateral (5) Traumatic hematoma of right knee: (6) Cellulitis: QUALIFIERS: Site of cellulitis: extremity Site of cellulitis of extremity: lower extremity Laterality: right Qualified Code(s): L03.115 - Cellulitis of right lower limb (7) Vertebral compression fracture: QUALIFIERS: Encounter type: subsequent encounter Fracture of vertebra location: lumbar Lumbar vertebra fracture level: L1 PLAN: T8 and L1 are new. Has had a kyphoplasty of L2 in the past and fractured L3 early in 2024. (8) Osteoporosis: QUALIFIERS: Osteoporosis type: age-related Presence of current pathological fracture: with current pathological fracture Encounter type: s ubsequent encounter Fracture healing: with delayed healing Qualified Code(s): M80.00XG - Age-related osteoporosis with current pathological fracture, unspecified site, subsequent encounter for fracture with delayed healing PLAN: Severe. Not currently on tx. Vitamin D level is low but, pt tells me that she is taking 50 mcg of Vitamin D daily. (9) Exercise hypoxemia: (10) Compression fracture of L3 vertebra: QUALIFIERS: Encounter type: sequela Qualified Code(s): S32.030S - Wedge compression fracture of third lumbar vertebra, sequela PLAN: Old. Seeing Dr. Malagon for this. (11) Chronic pain: QUALIFIERS: Chronic pain type: chronic pain syndrome Qualified Code(s): G89.4 - Chronic pain syndrome PLAN: She has chronic pain syndrome which is managed by Dr. Hall from pain management. She now has acute exacerbation secondary to a fall with multiple rib fractures and a subdural hematoma. (12) Chronic anticoagulation: PLAN: On hold for SDH. (13) Paroxysmal atrial fibrillation: (14) Dehydration: (15) Psoriatic arthritis: (16) Vitamin D deficiency: (17) Mild cognitive impairment of uncertain or unknown etiology: PLAN: Scored 40 out of a possible 50 on the BCAT. (18) Pulmonary nodule 1 cm or greater in diameter: PLAN: Plan 1. Continue therapy 2. She tolerated Fosamax this morning with no complaint of heartburn/chest pain. Will continue Fosamax and the increased dose of famotidine to twice daily. If she tolerates Fosamax daily for a few days we will transition to 70 mg once weekly. She will follow-up with Dr. Kendell Liang postdischarge to arrange for Prolia or Reclast. 3. I reviewed the CT scan of the chest done on 04/22. The pleural effusions mentioned in the radiology dictation are tiny.......she reportedly has pulmonary fibrosis and the increased interstitial markings would be due to chronic disease and not CHF. She can lie flat in bed with no SOB. Will get her records from Dr. Michel and see if she has any PFT's or pulmonary consults. She also has a pulmonary nodule in the R lung. Will continue to hold Lasix 4. Overnight trending pulse ox tonight 5. Laxative today and if no bowel movement will obtain a KUB in the a.m. and also a PA and lateral chest x-ray to evaluate for effusion/CHF. 6. Continue to hold Xarelto. Will continue Lovenox 30 mg SQ every 12 hours. Charges/Coding Visit Charges Inpatient E&M: 53926 Subs Hosp L1
[2025-05-01] MEDS: Fluticasone/Salmeterol 232-14 Inhaler 1 PUFF INHALATION ×2 (09:41→21:16)
[2025-05-01] MEDS: Senna/Docusate Sodium 1 Tablet 2 TABLET PO ×2 (09:42→21:20)
[2025-05-01] MEDS: Cholecalciferol (VIT D3) 25 MCG TABLET (1,000 UNITS) 50 MCG PO (09:43)
--- NOTE | 2025-05-01 12:26 | NURSING ---
pt is 95% on RA when resting and drops to 86% on RA with exertion.
--- NOTE | 2025-05-01 13:02 | PCM.PN.SRG ---
Subjective Subjective Patient seen this morning with Dr. Plasencia at TCU bedside. She was sitting up in her chair in no acute distress. She notes no increase in pain at rest or with ambulation. Denies fever, chills, numbness, tingling, new pain. Objective Data Objective Data Vital Signs: Vital Signs Temp Pulse Resp BP Pulse Ox O2 Del Method O2 Flow Rate 97.6 F L 65 15 125/70 H 95 Nasal Cannula 1 05/01/25 05:18 05/01/25 05:18 05/01/25 05:18 05/01/25 05:18 05/01/25 11:10 05/01/25 11:10 05/01/25 11:10 Oxygen Flow Rate (L/min) 1 Oxygen Delivery Method Nasal Cannula Weight: 136 lb 0.015 oz Body Mass Index (BMI) 26.5 Intake & Output: Intake and Output for Last 24 Hours 04/29/25 04/30/25 05/01/25 23:59 23:59 23:59 Intake Total 1540 / 1690 1057 / 1057 Output Total 375 / 375 1350 / 1350 200 / 200 Balance -375 / -375 190 / 340 857 / 857 Lab / Micro Data Attestation: I reviewed the patient's lab results. 04/30/25 07:35 04/30/25 07:35 Labs: Laboratory Results - last 24 hr 04/30/25 07:35: Vitamin D 25-Hydroxy 27.6 L Micro: Microbiology 04/30/25 14:00 Wound Drainage - Aerobic & Anaerobic Swabs Gram Stain - Final Physical Exam Narrative Today 05/01 Afebrile. VSS. In no acute distress Right lower extremity: Inspection: Ecchymosis and edema improved. Packing mostly dry. After packing removal there's no drainage, induration or ascending redness noted. Palpation: No increased warmth. No pain with passive or active knee range of motion. No lateral or posterior knee tenderness to palpation. Motor: Flexes and extends leg easily Sensation: Sensation intact to light touch Vascular: Leg is warm, dry, well perfused. . Prior to I&D Charges/Coding Visit Charges Office Visits / Consults: [id number] OV L2 New 15min
[2025-05-01] MEDS: Lidocaine 5% Patch 1 PATCH TOPICAL (21:17)
[2025-05-01] MEDS: MELATONIN 3 MG TABLET PO (21:20)
--- NOTE | 2025-05-01 23:53 | NURSING ---
Pt. repositioned and pt stated that pain medication was working.
[2025-05-02] MEDS: Umeclidinium Bromide Inhaler 1 PUFF INHALATION (04:51)
[2025-05-02] MEDS: Lidocaine 5% Patch 2 PATCH TOPICAL (05:07)
[2025-05-02 06:00] VITALS: BP 133/76; PULSE 77; RESP 16; TEMP 36.8; O2SAT 88; BMI 28.0
[2025-05-02] MEDS: Senna/Docusate Sodium 1 Tablet 2 TABLET PO ×2 (08:49→21:57)
[2025-05-02] MEDS: Cholecalciferol (VIT D3) 25 MCG TABLET (1,000 UNITS) 50 MCG PO (08:49)
[2025-05-02] MEDS: Fluticasone/Salmeterol 232-14 Inhaler 1 PUFF INHALATION ×2 (08:49→21:58)
--- NOTE | 2025-05-02 09:45 | PN_ITS ---
Subjective Subjective Afebrile VSS - Maintaining appropriate oxygen saturation on RA Oral intake - FOOD mostly good FLUIDS fair Weight today is unreliable. She did not gain 7 pounds in the past 2 days. It was a bed weight. Discussed with nursing - no problems that need addressed Reviewed the THERAPY notes Medication list reviewed. She had 3 doses of as needed oxycodone for breakthrough pain yesterday. I reviewed the overnight trending pulse ox. Pulse ox on room air was 90 or greater only 37.89% of the time she was monitored. 62.08% of the time the pulse ox ranged from 80-89. There were multiple desaturation events lasting greater than 60 seconds. Veronica tells me that she is doing better today. She slept well last night. She denies heartburn/nausea/epigastric pain. She had a large BM this morning and denies feeling constipated. She has been doing the IS.....10 breaths an hour while awake. Denies CP, orthopnea. She does admit to SOB with exertion. The wound GM stain had no WBC's and no organisms. Final wound culture is still pending. The wound was examined by Plastics today and reportedly is looking much better. I looked at the picture taken yesterday and there is much less swelling and less erythema. No odor to the DC. Still with some clotted blood. Please see the plastics note for Objective Data Objective Data Vital Signs: Vital Signs Temp Pulse Resp BP Pulse Ox O2 Del Method O2 Flow Rate 98.3 F 77 16 133/76 H 88 Room Air 1 05/02/25 06:00 05/02/25 06:00 05/02/25 06:00 05/02/25 06:00 05/02/25 06:00 05/02/25 09:00 05/01/25 17:59 FiO2 21 05/01/25 21:55 Oxygen Flow Rate (L/min) 1 Oxygen Delivery Method Room Air Weight: 143 lb 4.807 oz Body Mass Index (BMI) 28.0 Intake & Output: Intake and Output for Last 24 Hours 04/30/25 05/01/25 05/02/25 23:59 23:59 23:59 Intake Total 1540 / 1690 1297 / 1397 440 / 440 Output Total 1350 / 1350 1350 / 1350 Balance 190 / 340 -53 / 47 440 / 440 Lab / Micro Data 04/30/25 07:35 04/30/25 07:35 Micro: Microbiology 04/30/25 14:00 Wound Drainage - Aerobic & Anaerobic Swabs Gram Stain - Final Physical Exam Const Constitutional Narrative: She does not appear as painful today. She is not restless. She is very alert and appropriate. She states she feels better today than yesterday. General Appearance: cooperative Eyes Eyes Narrative: No discharge from the eyes and no conjunctival hemorrhage or injection of the conjunctiva. Resp Resp Narrative: Not tachypneic, not coughing. She was able to take some deep breaths without moaning in pain. The lungs are clear to auscultation today. She has been using the I-S consistently. She has no conversational dyspnea and she is not tachypneic. Cardio no murmurs and no gallops Cardio Narrative: She is in atrial fibrillation with a controlled ventricular response. GI normal to inspection, nondistended, normoactive bowel sounds and soft to palpation GI Narrative: She had a large bowel movement this morning and denies feeling constipated any longer. She denies any crampy abdominal pain. Extremity Extremity Narrative: Please see plastic surgery note for description of the R knee today. Assessment & Plan Assessment/Plan (1) Physical debility: (2) Fall: QUALIFIERS: Encounter type: subsequent encounter Qualified Code(s): W19.XXXD - Unspecified fall, subsequent encounter (3) Subdural hematoma: (4) Multiple rib fractures: QUALIFIERS: Encounter type: subsequent encounter Fracture type: c losed Laterality: bilateral (5) Traumatic hematoma of right knee: (6) Cellulitis: QUALIFIERS: Site of cellulitis: extremity Site of cellulitis of extremity: lower extremity Laterality: right Qualified Code(s): L03.115 - Cellulitis of right lower limb (7) Vertebral compression fracture: QUALIFIERS: Encounter type: subsequent encounter Fracture of vertebra location: lumbar Lumbar vertebra fracture level: L1 PLAN: T8 and L1 are new. Has had a kyphoplasty of L2 in the past and fractured L3 early in 2024. (8) Osteoporosis: QUALIFIERS: Osteoporosis type: age-related Presence of current pathological fracture: with current pathological fracture Encounter type: s ubsequent encounter Fracture healing: with delayed healing Qualified Code(s): M80.00XG - Age-related osteoporosis with current pathological fracture, unspecified site, subsequent encounter for fracture with delayed healing PLAN: Severe. Not currently on tx. Vitamin D level is low but, pt tells me that she is taking 50 mcg of Vitamin D daily. (9) Exercise hypoxemia: (10) Compression fracture of L3 vertebra: QUALIFIERS: Encounter type: sequela Qualified Code(s): S32.030S - Wedge compression fracture of third lumbar vertebra, sequela PLAN: Old. Seeing Dr. Malagon for this. (11) Chronic pain: QUALIFIERS: Chronic pain type: chronic pain syndrome Qualified Code(s): G89.4 - Chronic pain syndrome PLAN: She has chronic pain syndrome which is managed by Dr. Hall from pain management. She now has acute exacerbation secondary to a fall with multiple rib fractures and a subdural hematoma. (12) Chronic anticoagulation: PLAN: On hold for SDH. (13) Paroxysmal atrial fibrillation: (14) Dehydration: (15) Psoriatic arthritis: (16) Vitamin D deficiency: (17) Mild cognitive impairment of uncertain or unknown etiology: PLAN: Scored 40 out of a possible 50 on the BCAT. (18) Pulmonary nodule 1 cm or greater in diameter: PLAN: Plan 1. Continue therapy 2. No changes to the drug regimen today 3. Continue wet-to-dry dressing twice daily 4. She is tolerating Fosamax with no exacerbation of GERD/heartburn. Will transition to 70 mg of Fosamax once a week on Monday. Charges/Coding Visit Charges Inpatient E&M: 12870 Subs Hosp L1
--- NOTE | 2025-05-02 12:46 | PCM.PN.SRG ---
Subjective Subjective Patient seen this morning with Dr. Plasencia and wound RN at TCU bedside. She was sitting up in her chair in no acute distress. She notes no increase in pain at rest or with ambulation. Denies fever, chills, numbness, tingling, new pain. Objective Data Objective Data Vital Signs: Vital Signs Temp Pulse Resp BP Pulse Ox O2 Del Method O2 Flow Rate 98.3 F 77 16 133/76 H 88 Room Air 2 05/02/25 06:00 05/02/25 06:00 05/02/25 06:00 05/02/25 06:00 05/02/25 06:00 05/02/25 09:00 05/02/25 12:04 FiO2 21 05/01/25 21:55 Oxygen Flow Rate (L/min) 2 Oxygen Delivery Method Room Air Weight: 143 lb 4.807 oz Body Mass Index (BMI) 28.0 Intake & Output: Intake and Output for Last 24 Hours 04/30/25 05/01/25 05/02/25 23:59 23:59 23:59 Intake Total 1540 / 1690 1297 / 1397 440 / 440 Output Total 1350 / 1350 1350 / 1350 250 / 250 Balance 190 / 340 -53 / 47 190 / 190 Lab / Micro Data Attestation: I reviewed the patient's lab results. 04/30/25 07:35 04/30/25 07:35 Labs: Laboratory Results - last 24 hr 04/30/25 07:35: Vitamin D 25-Hydroxy 27.6 L Micro: Microbiology 04/30/25 14:00 Wound Drainage - Aerobic & Anaerobic Swabs Gram Stain - Final 04/30/25 14:00 Wound Drainage - Aerobic & Anaerobic Swabs Wound Culture - Preliminary Staphylococcus species Staphylococcus species#2 Physical Exam Narrative Today 05/02 Yesterday 05/01 Afebrile. VSS. In no acute distress Right lower extremity: Inspection: Ecchymosis and edema improved. After packing removal there's no drainage, induration or ascending redness noted. Clott noted in opening. Doesnt' tolerate removal thus left in place. Palpation: No increased warmth. No pain with passive or active knee range of motion. No lateral or posterior knee tenderness to palpation. Motor: Flexes and extends leg easily Sensation: Sensation intact to light touch Vascular: Leg is warm, dry, well perfused. . Charges/Coding Visit Charges Office Visits / Consults: 93192 OV L2 New 15min
[2025-05-02 17:47] VITALS: BP 137/59; PULSE 68; RESP 16; TEMP 36.9; O2SAT 94
[2025-05-02] MEDS: MELATONIN 3 MG TABLET PO (21:57)
[2025-05-02] MEDS: Lidocaine 5% Patch 1 PATCH TOPICAL (22:05)
[2025-05-02 22:30] VITALS: O2SAT 98
[2025-05-03] VITALS: PULSE 69; RESP 17; O2SAT 98
[2025-05-03 06:00] VITALS: BP 133/72; PULSE 67; RESP 18; TEMP 36.7; O2SAT 96
[2025-05-03] MEDS: Umeclidinium Bromide Inhaler 1 PUFF INHALATION (06:03)
[2025-05-03] MEDS: Fluticasone/Salmeterol 232-14 Inhaler 1 PUFF INHALATION ×2 (07:48→21:59)
[2025-05-03] MEDS: Senna/Docusate Sodium 1 Tablet 2 TABLET PO ×2 (07:52→22:01)
[2025-05-03] MEDS: Cholecalciferol (VIT D3) 25 MCG TABLET (1,000 UNITS) 50 MCG PO (07:52)
[2025-05-03 10:00] VITALS: O2SAT 96
[2025-05-03 13:00] VITALS: O2SAT 98
[2025-05-03 18:00] VITALS: BP 105/53; PULSE 58; RESP 16; TEMP 36.8; O2SAT 96
[2025-05-03] MEDS: Miconazole-7 Nitrate Cream 1 APPLIC VAGINAL (21:58)
[2025-05-03] MEDS: Lidocaine 5% Patch 2 PATCH TOPICAL (22:00)
[2025-05-03] MEDS: Lidocaine 5% Patch 1 PATCH TOPICAL (22:00)
[2025-05-03] MEDS: MELATONIN 3 MG TABLET PO (22:01)
[2025-05-04] VITALS: PULSE 76; RESP 16; O2SAT 97
--- NOTE | 2025-05-04 01:25 | NURSING ---
05-03; late entry. pt c/o of vaginal itching and burning. call to dr. londono. order for monistat received. pt had first dose 05-03 hs. 7 day regime.
[2025-05-04 05:51] VITALS: BP 127/73; PULSE 74; RESP 18; TEMP 37.1; O2SAT 97
[2025-05-04] MEDS: Umeclidinium Bromide Inhaler 1 PUFF INHALATION (05:54)
[2025-05-04] MEDS: Fluticasone/Salmeterol 232-14 Inhaler 1 PUFF INHALATION ×2 (07:56→22:28)
[2025-05-04 08:02] VITALS: BP 104/62; PULSE 70
[2025-05-04] MEDS: Cholecalciferol (VIT D3) 25 MCG TABLET (1,000 UNITS) 50 MCG PO (08:07)
[2025-05-04 17:48] VITALS: BP 112/50; PULSE 60; RESP 16; TEMP 36.7; O2SAT 100
[2025-05-04 22:15] VITALS: BP 116/64; PULSE 65; RESP 16; TEMP 37.1; O2SAT 95
[2025-05-04] MEDS: Miconazole-7 Nitrate Cream 1 APPLIC VAGINAL (22:25)
[2025-05-04] MEDS: Lidocaine 5% Patch 1 PATCH TOPICAL (22:29)
[2025-05-04] MEDS: Lidocaine 5% Patch 2 PATCH TOPICAL (22:30)
[2025-05-04] MEDS: Senna/Docusate Sodium 1 Tablet 2 TABLET PO (22:35)
[2025-05-04] MEDS: MELATONIN 3 MG TABLET PO (22:35)
[2025-05-05] VITALS: PULSE 68; O2SAT 97
[2025-05-05] MEDS: Umeclidinium Bromide Inhaler 1 PUFF INHALATION (05:48)
[2025-05-05 06:00] VITALS: BP 128/72; PULSE 69; RESP 16; TEMP 36.9; O2SAT 98
--- NOTE | 2025-05-05 08:41 | PN_ITS ---
Subjective Subjective Veronica was seen on TEAM rounds today. Her son Nathaniel was present in the room. All questions were answered to their satisfaction. Doxycycline Afebrile VSS - Maintaining appropriate oxygen saturation on RA Oral intake - FOOD good FLUIDS fair weight today is up. Discussed with nursing - no problems that need addressed Reviewed the THERAPY notes Medication list reviewed. she took 5 doses of PRN Oxycodone yesterday. She took 3 doses on Monday. Started on Monistat vaginal cream for itching/DC......likely related to the antibiotics for cellulitis. Has not requested a Duoneb since admission to rehab. I reviewed the results of the microbiology. She grew a Staph hominis and staph Caprae. The Staph hominis is oxacillin resistant and is also resistant to clindamycin, Rithron myosin, tetracycline. It is sensitive to doxycycline. Very rare growth of both and there were no WBC's in the GM stain. Objective Data Objective Data Vital Signs: Vital Signs Temp Pulse Resp BP Pulse Ox O2 Del Method O2 Flow Rate 98.4 F 69 16 128/72 H 98 Nasal Cannula 2 05/05/25 06:00 05/05/25 06:00 05/05/25 06:00 05/05/25 06:00 05/05/25 06:00 05/05/25 06:00 05/05/25 06:00 FiO2 21 05/01/25 21:55 Oxygen Flow Rate (L/min) 2 Oxygen Delivery Method Nasal Cannula Weight: 143 lb 4.807 oz Body Mass Index (BMI) 28.0 Intake & Output: Intake and Output for Last 24 Hours 05/03/25 05/04/25 05/05/25 23:59 23:59 23:59 Intake Total 820 / 1070 1910 / 1910 840 / 840 Output Total 1000 / 1200 875 / 1025 375 / 375 Balance -180 / -130 1035 / 885 465 / 465 Lab / Micro Data 04/30/25 07:35 04/30/25 07:35 Micro: Microbiology 04/30/25 14:00 Wound Drainage - Aerobic & Anaerobic Swabs Gram Stain - Final 04/30/25 14:00 Wound Drainage - Aerobic & Anaerobic Swabs Wound Culture - Final Staphylococcus hominis hominis Staphylococcus caprae 04/30/25 14:00 Wound Drainage - Aerobic & Anaerobic Swabs Anaerobic Culture - Preliminary No growth in 48 hours. Physical Exam Const alert Constitutional Narrative: Does not appear to as painful today. Moving a little better. Resp Resp Narrative: Not tachypneic, not coughing. She was able to take some deep breaths without moaning in pain. some coarse crackles in the Left base today. No wheezing. She has been using the I-S consistently. She has no conversational dyspnea and she is not tachypneic. She denies SOB at rest. Cardio no murmurs and no gallops Cardio Narrative: She is in atrial fibrillation with a controlled ventricular response. GI normal to inspection, nondistended, normoactive bowel sounds and soft to palpation Extremity Extremity Narrative: Edema is worse in the right leg but, she has edema of the feet BL and the ankles. she sits with her legs dependent.......even when she thinks she is elevating her legs they are only about 6 off the ground. General Extremity: edema Assessment & Plan Assessment/Plan (1) Physical debility: (2) Fall: QUALIFIERS: Encounter type: subsequent encounter Qualified Code(s): W19.XXXD - Unspecified fall, subsequent encounter (3) Subdural hematoma: (4) Multiple rib fractures: QUALIFIERS: Encounter type: subsequent encounter Fracture type: c losed Laterality: bilateral (5) Traumatic hematoma of right knee: (6) Cellulitis: QUALIFIERS: Site of cellulitis: extremity Site of cellulitis of extremity: lower extremity Laterality: right Qualified Code(s): L03.115 - Cellulitis of right lower limb (7) Vertebral compression fracture: QUALIFIERS: Encounter type: subsequent encounter Fracture of vertebra location: lumbar Lumbar vertebra fracture level: L1 (8) Osteoporosis: QUALIFIERS: Osteoporosis type: age-related Presence of current pathological fracture: with current pathological fracture Encounter type: s ubsequent encounter Fracture healing: with delayed healing Qualified Code(s): M80.00XG - Age-related osteoporosis with current pathological fracture, unspecified site, subsequent encounter for fracture with delayed healing (9) Exercise hypoxemia: (10) Compression fracture of L3 vertebra: QUALIFIERS: Encounter type: sequela Qualified Code(s): S32.030S - Wedge compression fracture of third lumbar vertebra, sequela (11) Chronic pain: QUALIFIERS: Chronic pain type: chronic pain syndrome Qualified Code(s): G89.4 - Chronic pain syndrome (12) Chronic anticoagulation: (13) Paroxysmal atrial fibrillation: (14) Dehydration: (15) Psoriatic arthritis: (16) Vitamin D deficiency: (17) Mild cognitive impairment of uncertain or unknown etiology: (18) Pulmonary nodule 1 cm or greater in diameter: PLAN: Plan 1. Continue therapy 2. Finish 5 days of Doxycycline. 3. Continue the current pain regimen. 4. Recheck lab on Monday 5. Lasix 40 mg PO today. Reweigh in the AM. Order Lasix 20 mg daily until she is back to baseline weight. 6. told she needed to elevate the legs the whole way up in the recliner to help control the edema. Charges/Coding Visit Charges Inpatient E&M: 68197 Subs Hosp L2
[2025-05-05] MEDS: Cholecalciferol (VIT D3) 25 MCG TABLET (1,000 UNITS) 50 MCG PO (09:05)
[2025-05-05] MEDS: Fluticasone/Salmeterol 232-14 Inhaler 1 PUFF INHALATION ×2 (09:05→21:10)
--- NOTE | 2025-05-05 12:56 | CASEMGMT ---
Social Work IDT met with patient and son for Team meeting. Discussed patient's progress in PT/OT/ST/SN/MD. Educated to [facility] with NRD 05/05 and continued stay is not guaranteed with each review. Pt is making progress, though pain is limiting for some ADLs as well. Pt is modA for UE and LE dressing and recommending AE. Son lives with pt and reported to being able to assist pt at home. Pt still unable to recall [facility] agency, but agreed to have at home. SW to provide a list of options at DC. Son will need to be taught on dressing changes which are currently twice a day. Son agreed. Pt has no DME needs currently. Will ReTeam weekly. SW will continue to follow for DC planning. Sarah Childs MSW [employer]
[2025-05-05 18:00] VITALS: BP 102/52; PULSE 61; RESP 17; TEMP 37; O2SAT 97
[2025-05-05] MEDS: Lidocaine 5% Patch 2 PATCH TOPICAL (21:09)
[2025-05-05] MEDS: Lidocaine 5% Patch 1 PATCH TOPICAL (21:09)
[2025-05-05] MEDS: Senna/Docusate Sodium 1 Tablet 2 TABLET PO (21:10)
[2025-05-05] MEDS: MELATONIN 3 MG TABLET PO (21:10)
[2025-05-05] MEDS: Miconazole-7 Nitrate Cream 1 APPLIC VAGINAL (21:11)
[2025-05-05 21:40] VITALS: PULSE 61
--- NOTE | 2025-05-05 22:04 | NURSING ---
KNEE DRESSING CHANGED WITH MODERATE SANGUENEOUS DRAINAGE. PT TOLERATED WELL.
[2025-05-06] VITALS (7 sets, daily range): BP systolic 109–130; BP diastolic 62–69; PULSE 53–60; RESP 15–16; TEMP 37.1–37.2; O2SAT 94–98; BMI 28.4
[2025-05-06] MEDS: Umeclidinium Bromide Inhaler 1 PUFF INHALATION (05:44)
[2025-05-06] MEDS: Senna/Docusate Sodium 1 Tablet 2 TABLET PO ×2 (07:39→21:24)
[2025-05-06] MEDS: Fluticasone/Salmeterol 232-14 Inhaler 1 PUFF INHALATION ×2 (07:39→21:22)
[2025-05-06] MEDS: Cholecalciferol (VIT D3) 25 MCG TABLET (1,000 UNITS) 50 MCG PO (07:40)
--- NOTE | 2025-05-06 09:20 | PCM.PROGNOTE ---
Subjective Subjective Day #4 doxycycline....prior to that had 3 days of Keflex. Afebrile Vital signs stable Good appetite, sleeping well at night Maintaining an oxygen saturation of 94 to 95% while sleeping at night on 2 L of nasal O2. Fluid balance yesterday was -555. Had 4 doses of oxycodone 5 mg yesterday. He is also on a Butrans patch, 10 mcg. Having regular BM's Denies cough, lightheadedness, cough, nausea/vomiting/abdominal pain and calf tenderness. She complains of pain in the left shoulder.....exacerbated by movement.......trying not to move the shoulder. Has been faithfully doing IS. No night sweats, chills or fevers. Still c/o vaginal itching. Monistat vaginal cream was added to the drug regimen over the weekend. Objective Data Objective Data Vital Signs: Vital Signs Temp Pulse Resp BP Pulse Ox O2 Del Method O2 Flow Rate 98.8 F 60 15 109/64 95 Nasal Cannula 2 05/06/25 06:00 05/06/25 07:47 05/06/25 06:00 05/06/25 07:47 05/06/25 08:01 05/06/25 08:01 05/06/25 08:01 FiO2 21 05/01/25 21:55 Oxygen Flow Rate (L/min) 2 Oxygen Delivery Method Nasal Cannula Weight: 143 lb 4.807 oz Body Mass Index (BMI) 28.0 Intake & Output: Intake and Output for Last 24 Hours 05/04/25 05/05/25 05/06/25 23:59 23:59 23:59 Intake Total 1910 / 1910 1320 / 1320 540 / 540 Output Total 875 / 1025 1875 / 1875 300 / 300 Balance 1035 / 885 -555 / -555 240 / 240 Lab / Micro Data 04/30/25 07:35 04/30/25 07:35 Micro: Microbiology 04/30/25 14:00 Wound Drainage - Aerobic & Anaerobic Swabs Gram Stain - Final 04/30/25 14:00 Wound Drainage - Aerobic & Anaerobic Swabs Wound Culture - Final Staphylococcus hominis hominis Staphylococcus caprae 04/30/25 14:00 Wound Drainage - Aerobic & Anaerobic Swabs Anaerobic Culture - Final No growth in 5 days. Physical Exam Const alert Constitutional Narrative: does not appear to be in any distress until We examine the L shoulder and then complains with any movement or light touch.......but, she was able to make mccray and eggs this AM without any complaints. when she is distracted she tolerates touch much better. Resp Resp Narrative: Coarse crackles in both bases that do not resolve after few deep breaths. No wheezing. Fair air exchange. No cough with taking deep breaths. No orthopnea. Effort and Inspection: Negative for tachypneic Cardio no gallops Cardio Narrative: Irregularly irregular with controlled ventricular response GI normal to inspection, nondistended, normoactive bowel sounds, soft to palpation and non-tender Extremity no calf tenderness Extremity Narrative: She has edema of the dorsum of the feet and the ankles.......better with the compressions wraps. Has a lot of varicosities of the LE's. bruising is slowly resolving. The left shoulder is not swollen and there is no bruising and no erythema. No significant increase in warmth to touch. No openings in the skin. When I had her flex her biceps she had pain over the biceps tendon where it attaches at the shoulder. She also has some pain with palpation of the posterior shoulder joint. She is holding the shoulder anteriorly. Will not let move fully examine the shoulder.......she guards with any attemtpt to move the joint. Skin Skin Narrative: I examined the wound with the wound care team. The swelling continues to improve. There is some some old clot in the base of the wound. No purulent DC. No erythema around the wound. No odor. Surgery removed some more clot from the base with a swab and forceps. The wound was repacked and dressed. She tolerated the procedure well..... much better than last week. Assessment & Plan Assessment/Plan (1) Physical debility: (2) Fall: QUALIFIERS: Encounter type: subsequent encounter Qualified Code(s): W19.XXXD - Unspecified fall, subsequent encounter (3) Subdural hematoma: (4) Multiple rib fractures: QUALIFIERS: Encounter type: subsequent encounter Fracture type: closed Laterality: bilateral (5) Traumatic hematoma of right knee: (6) Cellulitis: QUALIFIERS: Site of cellulitis: extremity Site of cellulitis of extremity: lower extremity Laterality: right Qualified Code(s): L03.115 - Cellulitis of right lower limb (7) Vertebral compression fracture: QUALIFIERS: Encounter type: subsequent encounter Fracture of vertebra location: lumbar Lumbar vertebra fracture level: L1 (8) Osteoporosis: QUALIFIERS: Osteoporosis type: age-related Presence of current pathological fracture: with current pathological fracture Encounter type: subsequent encounter Fracture healing: with delayed healing Qualified Code(s): M80.00XG - Age-related osteoporosis with current pathological fracture, unspecified site, subsequent encounter for fracture with delayed healing (9) Exercise hypoxemia: (10) Chronic anticoagulation: (11) Paroxysmal atrial fibrillation: (12) Psoriatic arthritis: (13) Vitamin D deficiency: (14) Mild cognitive impairment of uncertain or unknown etiology: (15) Pulmonary nodule 1 cm or greater in diameter: (16) Left shoulder pain: QUALIFIERS: Chronicity: acute Qualified Code(s): M25.512 - Pain in left shoulder PLAN: Plan 1. Continue therapy 2. Recheck lab in the a.m. 3. Continue incentive spirometer for 10 breaths every hour while awake 4. Continue Jasbir wraps to the bilateral lower extremities and elevation of the legs. 5. Check orthostatics in the a.m. 6. Try arthritis compounded cream to the left shoulder and if this is not effective consider a steroid injection into the left shoulder joint. Charges/Coding Visit Charges Inpatient E&M: 90728 Subs Hosp L1
--- NOTE | 2025-05-06 13:08 | RAD_ITS ---
PROCEDURE: CHEST PA AND LATERAL 05/06/2025 REASON FOR EXAM: RALES TECHNIQUE: Procedure Code: RADCXR Modality: DX Procedure: CHEST PA AND LATERAL COMPARISON: December 24, 2024 FINDINGS: There is cardiomegaly with mild central vascular congestion. There is consolidation in the right mid and lower lung, new compared to the prior. There is a moderate right and small left pleural effusion. A dominant right pulmonary nodule in the mid lung measuring proximally 1.2 cm is similar to the prior. Hardware is partly visible in the right shoulder. Vertebroplasty changes partly visible in the lumbar region. RAD/Chest PA and Lateral IMPRESSION: There is cardiomegaly with mild central vascular congestion. There is consolidation in the right mid and lower lung, new compared to the sean or. There is a moderate right and small left pleural effusion. A dominant right pulmonary nodule in the mid lung measuring proximally 1.2 cm i s similar to the prior. Reading Location: [facility]
--- NOTE | 2025-05-06 13:11 | PCM.PN.SRG ---
Subjective Subjective Patient seen this morning with Dr. Son and Dilma, wound RN at TCU bedside. She was sitting up in her chair in no acute distress. She notes improved pain with walking. Denies worsening pain with Objective Data Objective Data Vital Signs: Vital Signs Temp Pulse Resp BP Pulse Ox O2 Del Method O2 Flow Rate 98.8 F 60 15 109/64 95 Nasal Cannula 2 05/06/25 06:00 05/06/25 07:47 05/06/25 06:00 05/06/25 07:47 05/06/25 08:01 05/06/25 10:00 05/06/25 12:27 FiO2 21 05/01/25 21:55 Oxygen Flow Rate (L/min) 2 Oxygen Delivery Method Nasal Cannula Weight: 145 lb 8.081 oz Body Mass Index (BMI) 28.4 Intake & Output: Intake and Output for Last 24 Hours 05/04/25 05/05/25 05/06/25 23:59 23:59 23:59 Intake Total 1910 / 1910 1320 / 1320 780 / 780 Output Total 875 / 1025 1875 / 1875 950 / 950 Balance 1035 / 885 -555 / -555 -170 / -170 Lab / Micro Data Attestation: I reviewed the patient's lab results. 04/30/25 07:35 04/30/25 07:35 Micro: Microbiology 04/30/25 14:00 Wound Drainage - Aerobic & Anaerobic Swabs Gram Stain - Final 04/30/25 14:00 Wound Drainage - Aerobic & Anaerobic Swabs Wound Culture - Final Staphylococcus hominis hominis- very rare growth- likely skin contamination Staphylococcus caprae- very rare growth- likely skin contamination 04/30/25 14:00 Wound Drainage - Aerobic & Anaerobic Swabs Anaerobic Culture - Final No growth in 5 days. Physical Exam Narrative Today 05/06 From 05/02 Afebrile. VSS. In no acute distress Right lower extremity: Inspection: Ecchymosis and edema improved. After packing removal there's no drainage, induration or ascending redness noted. Clott noted, using sterile technique some were removed with sterile cotton probe and areas that were adherent to the wound bed were excised with sterile scissors. Palpation: Diffuse patellar tenderness. No increased warmth. No pain with passive or active knee range of motion. Motor: Flexes and extends leg easily Sensation: Sensation intact to light touch Vascular: Leg is warm, dry, well perfused. Charges/Coding Visit Charges Inpatient E&M: 26531 Subs Hosp L2
[2025-05-06] MEDS: Arthritis Pain Compound 60 CLICK TUBE TOPICAL ×2 (13:37→21:20)
[2025-05-06] MEDS: Lidocaine 5% Patch 2 PATCH TOPICAL (21:22)
[2025-05-06] MEDS: Lidocaine 5% Patch 1 PATCH TOPICAL (21:22)
[2025-05-06] MEDS: MELATONIN 3 MG TABLET PO (21:23)
[2025-05-06] MEDS: Miconazole-7 Nitrate Cream 1 APPLIC VAGINAL (21:24)
[2025-05-07 00:45] VITALS: RESP 16; O2SAT 95
[2025-05-07 01:50] VITALS: RESP 15; O2SAT 94
[2025-05-07 06:00] VITALS: BP 126/66; PULSE 59; RESP 15; TEMP 37.1; O2SAT 100; BMI 28.5
[2025-05-07] MEDS: Arthritis Pain Compound 60 CLICK TUBE TOPICAL ×3 (06:08→21:28)
[2025-05-07] MEDS: Umeclidinium Bromide Inhaler 1 PUFF INHALATION (06:11)
[2025-05-07 07:33] LABS: Hematocrit 40.5 % (37-47); Hemoglobin 12.7 g/dL (12.0-15.0); Immature Granulocytes Count 0.040 X10^3/uL (0.0-0.0); Mean Corp Hgb Conc 31.4 g/dL (32-36); Mean Corpuscular Volume 106.6 fL (81-99); Mean Platelet Vol. 10.3 fl (6.2-12.0); NRBC Flagged by Analyzer 0 % (0-5); Platelet Count 309 K/mm3 (150-450); RBC Distribution Width CV 14.7 % (11.6-14.6); RBC Distribution Width SD 57.8 fl (35.1-43.9); Red Blood Count 3.80 M/mm3 (4.2-5.4); White Blood Count 8.5 K/mm3 (4.4-11.0)
[2025-05-07] MEDS: Fluticasone/Salmeterol 232-14 Inhaler 1 PUFF INHALATION ×2 (07:43→21:06)
[2025-05-07] MEDS: Senna/Docusate Sodium 1 Tablet 2 TABLET PO ×2 (07:45→21:03)
[2025-05-07] MEDS: Cholecalciferol (VIT D3) 25 MCG TABLET (1,000 UNITS) 50 MCG PO (07:45)
[2025-05-07 07:49] VITALS: BP 117/67; BP 118/64; BP 125/59; PULSE 59; PULSE 61
[2025-05-07 07:51] LABS: Pro- Brain NATRIURETIC PEPTIDE 1637 pg/mL (<=1800)
[2025-05-07 08:02] LABS: Anion Gap 8 (5-15); Calcium,Total 8.8 mg/dL (7.6-11.0); Carbon Dioxide 26.7 mmol/L (21.0-32.0); Chloride 105 mmol/L (98-108); Estimated Creatinine Clearance 44.48 ml/min (50-250); Glucose 87 mg/dL (70-99); Potassium 3.7 mmol/L (3.3-5.1)
[2025-05-07 08:04] LABS: BUN 23 mg/dL (4-19); BUN/Creat Ratio 58.0 RATIO (10-20)
--- NOTE | 2025-05-07 14:51 | WOUNDNOTE ---
wound photo: right knee
[2025-05-07 17:25] VITALS: BP 108/65; PULSE 61; RESP 17; TEMP 37; O2SAT 98
[2025-05-07] MEDS: MELATONIN 3 MG TABLET PO (21:04)
[2025-05-07] MEDS: Miconazole-7 Nitrate Cream 1 APPLIC VAGINAL (21:04)
[2025-05-07] MEDS: Lidocaine 5% Patch 1 PATCH TOPICAL (21:06)
[2025-05-07] MEDS: Lidocaine 5% Patch 2 PATCH TOPICAL (21:06)
[2025-05-07 21:30] VITALS: PULSE 61; RESP 16; O2SAT 98
[2025-05-08] VITALS (8 sets, daily range): BP systolic 114–130; BP diastolic 56–70; PULSE 60–75; RESP 16–18; TEMP 36.2–37.2; O2SAT 96–98; BMI 28.8
[2025-05-08] MEDS: Arthritis Pain Compound 60 CLICK TUBE TOPICAL ×3 (06:35→21:48)
[2025-05-08] MEDS: Buprenorphine 10 MCG PATCH.TDWK 1 PATCH TD (06:35)
[2025-05-08] MEDS: Umeclidinium Bromide Inhaler 1 PUFF INHALATION (06:36)
[2025-05-08] MEDS: Fluticasone/Salmeterol 232-14 Inhaler 1 PUFF INHALATION ×2 (08:06→21:48)
[2025-05-08] MEDS: Senna/Docusate Sodium 1 Tablet 2 TABLET PO (08:07)
[2025-05-08] MEDS: Cholecalciferol (VIT D3) 25 MCG TABLET (1,000 UNITS) 50 MCG PO (08:08)
--- NOTE | 2025-05-08 08:58 | PN_ITS ---
Subjective Subjective Afebrile VSS - Maintaining appropriate oxygen saturation on RA Oral intake - FOOD good FLUIDS usually good Discussed with nursing - no problems that need addressed Reviewed the THERAPY notes Medication list reviewed. She had 3 doses of as needed oxycodone 5 mg yesterday. She has had 1 so far today. All recent lab was personally reviewed. White blood cell count is normal at 8.5. Differential is unremarkable. Hemoglobin is within normal limits at 12.7. Platelets are normal. Sodium is normal at 140 and the potassium is stable at 3.7. The BUN is 23 with a stable creatinine of 0.39. BNP is 1637 which is unremarkable in this patient. I reviewed the PA and lateral chest x-ray. There is consolidation in the right mid and lower lung and moderate right and small left pleural effusions. The right pulmonary nodule measures 1.2 cm which is similar to prior. Veronica denies chest pain, palpitations, shortness of breath at rest, dysuria, nausea/vomiting/abdominal pain, lightheadedness. Today she is complaining of some pain in her left foot. Has not complained of left shoulder pain today. The arthritis compounded cream seems to be helping. Objective Data Objective Data Vital Signs: Vital Signs Temp Pulse Resp BP Pulse Ox O2 Del Method O2 Flow Rate 98.4 F 60 17 118/56 L 98 Nasal Cannula 2 05/08/25 06:00 05/08/25 08:38 05/08/25 08:38 05/08/25 06:00 05/08/25 08:38 05/08/25 08:38 05/08/25 08:38 FiO2 21 05/01/25 21:55 Oxygen Flow Rate (L/min) 2 Oxygen Delivery Method Nasal Cannula Weight: 146 lb 2.664 oz Body Mass Index (BMI) 28.5 Intake & Output: Intake and Output for Last 24 Hours 05/06/25 05/07/25 05/08/25 23:59 23:59 23:59 Intake Total 2019 860 / 860 460 / 460 Output Total 1949 / 1950 400 / 400 350 / 350 Balance 70 / 70 460 / 460 110 / 110 Lab / Micro Data 05/07/25 07:17 05/07/25 07:17 Micro: Microbiology 04/30/25 14:00 Wound Drainage - Aerobic & Anaerobic Swabs Gram Stain - Final 04/30/25 14:00 Wound Drainage - Aerobic & Anaerobic Swabs Wound Culture - Final Staphylococcus hominis hominis Staphylococcus caprae 04/30/25 14:00 Wound Drainage - Aerobic & Anaerobic Swabs Anaerobic Culture - Final No growth in 5 days. Physical Exam Const alert Resp Resp Narrative: Coarse crackles in both bases that do not resolve after few deep breaths. No wheezing. Fair air exchange. No cough with taking deep breaths. No orthopnea. Effort and Inspection: Negative for tachypneic Cardio no gallops Cardio Narrative: Irregularly irregular with controlled ventricular response GI normal to inspection, nondistended, normoactive bowel sounds, soft to palpation and non-tender Extremity no calf tenderness General Extremity: edema Assessment & Plan Assessment/Plan (1) Physical debility: (2) Fall: QUALIFIERS: Encounter type: subsequent encounter Qualified Code(s): W19.XXXD - Unspecified fall, subsequent encounter (3) Subdural hematoma: (4) Multiple rib fractures: QUALIFIERS: Encounter type: subsequent encounter Fracture type: c losed Laterality: bilateral (5) Traumatic hematoma of right knee: (6) Cellulitis: QUALIFIERS: Site of cellulitis: extremity Site of cellulitis of extremity: lower extremity Laterality: right Qualified Code(s): L03.115 - Cellulitis of right lower limb (7) Vertebral compression fracture: QUALIFIERS: Encounter type: subsequent encounter Fracture of vertebra location: lumbar Lumbar vertebra fracture level: L1 (8) Osteoporosis: QUALIFIERS: Osteoporosis type: age-related Presence of current pathological fracture: with current pathological fracture Encounter type: s ubsequent encounter Fracture healing: with delayed healing Qualified Code(s): M80.00XG - Age-related osteoporosis with current pathological fracture, unspecified site, subsequent encounter for fracture with delayed healing (9) Exercise hypoxemia: (10) Chronic anticoagulation: (11) Paroxysmal atrial fibrillation: (12) Psoriatic arthritis: (13) Vitamin D deficiency: (14) Mild cognitive impairment of uncertain or unknown etiology: (15) Pulmonary nodule 1 cm or greater in diameter: (16) Left shoulder pain: QUALIFIERS: Chronicity: acute Qualified Code(s): M25.512 - Pain in left shoulder PLAN: Plan 1. Continue therapy 2. Increase Lasix to 40 mg daily x 2 days and then resume 20 mg daily. 3. Potassium chloride 20 mill equivalents today and 20 mEq tomorrow then discontinue. 4. Recheck a BMP on Monday. 5. No changes to the current drug regimen. 6. Start Mucinex 1200 mg twice daily 7. Albuterol aerosols every 4 hours while awake for a few days to see if we can improve aeration to the R mid and lower lung mccarty. Likely would not tolerate percussion. 8. Add a fluid restriction of 1300 cc daily. Charges/Coding Visit Charges Inpatient E&M: 50797 Subs Hosp L1
--- NOTE | 2025-05-08 09:19 | NURSING ---
MD changed order of furosemide 20mg today to 40mg for today and tomorrow. Patient already given 20mg this AM. Per MD give another 20mg tablet today to account for the 40 mg.
[2025-05-08] MEDS: Potassium Chloride Oral Tablet 20 MEQ PO (10:21)
[2025-05-08] MEDS: Albuterol 2.5 MG/3 ML VIAL.NEB. INHALATION ×2 (13:50→19:00)
[2025-05-08] MEDS: Miconazole-7 Nitrate Cream 1 APPLIC VAGINAL (21:48)
[2025-05-08] MEDS: Lidocaine 5% Patch 2 PATCH TOPICAL (21:49)
[2025-05-08] MEDS: Lidocaine 5% Patch 1 PATCH TOPICAL (21:49)
[2025-05-08] MEDS: MELATONIN 3 MG TABLET PO (21:51)
[2025-05-09] VITALS (7 sets, daily range): BP systolic 119–127; BP diastolic 54–71; PULSE 55–75; RESP 16–17; TEMP 36.7–36.9; O2SAT 95–99; BMI 28.6
[2025-05-09] MEDS: Arthritis Pain Compound 60 CLICK TUBE TOPICAL ×3 (05:51→22:39)
[2025-05-09] MEDS: Umeclidinium Bromide Inhaler 1 PUFF INHALATION (05:51)
[2025-05-09] MEDS: Albuterol 2.5 MG/3 ML VIAL.NEB. INHALATION ×3 (06:51→18:29)
[2025-05-09] MEDS: Fluticasone/Salmeterol 232-14 Inhaler 1 PUFF INHALATION ×2 (08:10→22:39)
[2025-05-09] MEDS: Potassium Chloride Oral Tablet 20 MEQ PO (08:11)
[2025-05-09] MEDS: Cholecalciferol (VIT D3) 25 MCG TABLET (1,000 UNITS) 50 MCG PO (08:11)
--- NOTE | 2025-05-09 09:38 | PN_ITS ---
Subjective Subjective Afebrile VSS - Maintaining appropriate oxygen saturation on RA Oral intake - FOOD good FLUIDS - fluid balance negative yesterday. Weight is down approximately 1 lb since yesterday. Discussed with nursing - no problems that need addressed Reviewed the THERAPY notes Medication list reviewed. Consistently taking 3 doses of oxycodone daily for breakthrough pain. Denies SOB, lightheadedness, palpitations, N/V/abd pain and dysuria. Continues to complain of L shoulder pain. Fluid balance was mildly negative yesterday after increasing the lasix to 40 mg. Objective Data Objective Data Vital Signs: Vital Signs Temp Pulse Resp BP Pulse Ox O2 Del Method O2 Flow Rate 98.5 F 75 16 119/57 L 95 Nasal Cannula 2 05/09/25 06:00 05/09/25 08:22 05/09/25 06:51 05/09/25 08:22 05/09/25 06:51 05/09/25 06:51 05/09/25 06:51 FiO2 21 05/01/25 21:55 Oxygen Flow Rate (L/min) 2 Oxygen Delivery Method Nasal Cannula Weight: 146 lb 13.246 oz Body Mass Index (BMI) 28.6 Intake & Output: Intake and Output for Last 24 Hours 05/07/25 05/08/25 05/09/25 23:59 23:59 23:59 Intake Total 860 / 860 820 / 820 120 / 120 Output Total 400 / 400 2250 / 2450 400 / 400 Balance 460 / 460 -1430 / -1630 -280 / -280 Lab / Micro Data 05/07/25 07:17 05/07/25 07:17 Micro: Microbiology 04/30/25 14:00 Wound Drainage - Aerobic & Anaerobic Swabs Gram Stain - Final 04/30/25 14:00 Wound Drainage - Aerobic & Anaerobic Swabs Wound Culture - Final Staphylococcus hominis hominis Staphylococcus caprae 04/30/25 14:00 Wound Drainage - Aerobic & Anaerobic Swabs Anaerobic Culture - Final No growth in 5 days. Physical Exam Const alert, oriented x3 and no apparent distress Resp normal respiratory effort Resp Narrative: No cough, not tachypneic, no conversational dyspnea. Denies orthopnea. Lungs are diminished in the bases, R>L and there are crackles in the bases........ no wheezing. Cardio no gallops Cardio Narrative: Irregular irregular rhythm with controlled ventricular response. On atenolol. GI normal to inspection, nondistended, normoactive bowel sounds, soft to palpation and non-tender Extremity Extremity Narrative: Still with pitting edema of the LE's........extending into the posterior thighs. No edema in the flanks. MORALES wraps are in place. Skin Rashes: no rashes Assessment & Plan Assessment/Plan (1) Physical debility: (2) Fall: QUALIFIERS: Encounter type: subsequent encounter Qualified Code(s): W19.XXXD - Unspecified fall, subsequent encounter (3) Subdural hematoma: (4) Multiple rib fractures: QUALIFIERS: Encounter type: subsequent encounter Fracture type: c losed Laterality: bilateral (5) Traumatic hematoma of right knee: (6) Cellulitis: QUALIFIERS: Site of cellulitis: extremity Site of cellulitis of extremity: lower extremity Laterality: right Qualified Code(s): L03.115 - Cellulitis of right lower limb (7) Vertebral compression fracture: QUALIFIERS: Encounter type: subsequent encounter Fracture of vertebra location: lumbar Lumbar vertebra fracture level: L1 (8) Osteoporosis: QUALIFIERS: Osteoporosis type: age-related Presence of current pathological fracture: with current pathological fracture Encounter type: s ubsequent encounter Fracture healing: with delayed healing Qualified Code(s): M80.00XG - Age-related osteoporosis with current pathological fracture, unspecified site, subsequent encounter for fracture with delayed healing (9) Exercise hypoxemia: (10) Chronic anticoagulation: (11) Paroxysmal atrial fibrillation: (12) Psoriatic arthritis: (13) Vitamin D deficiency: (14) Mild cognitive impairment of uncertain or unknown etiology: (15) Pulmonary nodule 1 cm or greater in diameter: (16) Left shoulder pain: QUALIFIERS: Chronicity: acute Qualified Code(s): M25.512 - Pain in left shoulder PLAN: Plain x-ray with no fracture or dislocation. Possible rotator cuff tendinopathy. Has seen Dr. Giron in the past for a right shoulder replacement. Recommended she follow-up with Dr. Giron postdischarge from rehab. (17) Pulmonary hypertension: PLAN: Mild. RV systolic pressure estimated at 36 in October of 2024. Underestimated? (18) Venous insufficiency: PLAN: Plan 1. Continue therapy 2. Increase Lasix to 40 mg twice daily. Continue to monitor daily weights and accurate intake and output. Continue fluid restriction to 1300 cc daily. 3. BMP ordered for the a.m. 4. No changes to the pain regimen. Pain is adequately controlled. 5. Recheck a Vitamin D level in the AM. Level was low on 04/30/2025 despite taking 50 mcg of cholecalciferol daily. she maintains that she never misses taking this medication at home. If the level is still low will need to increase the dose to 75 mcg daily Charges/Coding Visit Charges Inpatient E&M: 75914 Subs Hosp L1
[2025-05-09] MEDS: Lidocaine 5% Patch 1 PATCH TOPICAL (22:39)
[2025-05-09] MEDS: MELATONIN 3 MG TABLET PO (22:39)
[2025-05-09] MEDS: Lidocaine 5% Patch 2 PATCH TOPICAL (22:40)
[2025-05-09] MEDS: Senna/Docusate Sodium 1 Tablet 2 TABLET PO (22:46)
[2025-05-09] MEDS: Miconazole-7 Nitrate Cream 1 APPLIC VAGINAL (22:47)
[2025-05-10] VITALS (7 sets, daily range): BP systolic 106–141; BP diastolic 60–73; PULSE 63–77; RESP 16–18; TEMP 36.5–36.7; O2SAT 95–98; BMI 28.5
[2025-05-10] MEDS: Arthritis Pain Compound 60 CLICK TUBE TOPICAL ×3 (06:53→20:21)
[2025-05-10 07:38] LABS: Anion Gap 8 (5-15); BUN 20 mg/dL (4-19); BUN/Creat Ratio 50.6 RATIO (10-20); Calcium,Total 8.7 mg/dL (7.6-11.0); Carbon Dioxide 30.2 mmol/L (21.0-32.0); Chloride 103 mmol/L (98-108); Estimated Creatinine Clearance 44.50 ml/min (50-250); Glucose 72 mg/dL (70-99); Potassium 3.9 mmol/L (3.3-5.1); Vitamin D,25 Hydroxy 25.6 ng/mL (30-100)
[2025-05-10] MEDS: Albuterol 2.5 MG/3 ML VIAL.NEB. INHALATION ×3 (07:45→19:29)
[2025-05-10] MEDS: Umeclidinium Bromide Inhaler 1 PUFF INHALATION (08:43)
[2025-05-10] MEDS: Cholecalciferol (VIT D3) 25 MCG TABLET (1,000 UNITS) 50 MCG PO (08:45)
[2025-05-10] MEDS: Senna/Docusate Sodium 1 Tablet 2 TABLET PO ×2 (08:45→20:32)
[2025-05-10] MEDS: Potassium Chloride Oral Tablet 20 MEQ PO ×2 (08:48→18:03)
[2025-05-10] MEDS: Fluticasone/Salmeterol 232-14 Inhaler 1 PUFF INHALATION ×2 (08:54→20:20)
[2025-05-10] MEDS: Lidocaine 5% Patch 1 PATCH TOPICAL (20:20)
[2025-05-10] MEDS: Lidocaine 5% Patch 2 PATCH TOPICAL (20:21)
[2025-05-10] MEDS: MELATONIN 3 MG TABLET PO (20:32)
[2025-05-10] MEDS: 0.9% Saline Lock 10 ML Syringe IV (21:39)
[2025-05-11 06:00] VITALS: BP 124/67; PULSE 66; RESP 17; TEMP 36.7; O2SAT 99; BMI 28.5
[2025-05-11] MEDS: 0.9% Saline Lock 10 ML Syringe IV ×3 (06:29→21:39)
[2025-05-11] MEDS: Umeclidinium Bromide Inhaler 1 PUFF INHALATION (06:29)
[2025-05-11] MEDS: Arthritis Pain Compound 60 CLICK TUBE TOPICAL ×3 (06:30→21:34)
[2025-05-11 07:05] VITALS: PULSE 68; RESP 17; O2SAT 98
[2025-05-11] MEDS: Albuterol 2.5 MG/3 ML VIAL.NEB. INHALATION ×3 (07:05→15:20)
[2025-05-11] MEDS: Potassium Chloride Oral Tablet 20 MEQ PO (08:18)
[2025-05-11] MEDS: Fluticasone/Salmeterol 232-14 Inhaler 1 PUFF INHALATION ×2 (08:19→21:35)
[2025-05-11] MEDS: Senna/Docusate Sodium 1 Tablet 2 TABLET PO ×2 (08:20→21:37)
[2025-05-11] MEDS: Cholecalciferol (VIT D3) 25 MCG TABLET (1,000 UNITS) 50 MCG PO (08:21)
[2025-05-11 11:20] VITALS: PULSE 60; RESP 16
[2025-05-11 15:20] VITALS: PULSE 70; RESP 16
[2025-05-11 18:09] VITALS: BP 105/54; PULSE 74; RESP 18; TEMP 37.1; O2SAT 95
[2025-05-11 21:20] VITALS: BP 116/61; PULSE 66; RESP 16; TEMP 37.3; O2SAT 96
[2025-05-11] MEDS: Lidocaine 5% Patch 2 PATCH TOPICAL (21:35)
[2025-05-11] MEDS: Lidocaine 5% Patch 1 PATCH TOPICAL (21:35)
[2025-05-11] MEDS: MELATONIN 3 MG TABLET PO (21:37)
[2025-05-12] VITALS (8 sets, daily range): BP systolic 100–120; BP diastolic 50–63; PULSE 60–72; RESP 16; TEMP 37–37.2; O2SAT 95–100; BMI 28.0
[2025-05-12 06:09] LABS: Anion Gap 7 (5-15); BUN 21 mg/dL (4-19); BUN/Creat Ratio 54.1 RATIO (10-20); Calcium,Total 8.8 mg/dL (7.6-11.0); Carbon Dioxide 31.8 mmol/L (21.0-32.0); Chloride 104 mmol/L (98-108); Estimated Creatinine Clearance 44.48 ml/min (50-250); Glucose 78 mg/dL (70-99); Potassium 3.5 mmol/L (3.3-5.1)
[2025-05-12] MEDS: Arthritis Pain Compound 60 CLICK TUBE TOPICAL ×3 (06:10→21:38)
[2025-05-12] MEDS: Umeclidinium Bromide Inhaler 1 PUFF INHALATION (06:11)
[2025-05-12] MEDS: 0.9% Saline Lock 10 ML Syringe IV ×2 (07:11→21:37)
[2025-05-12] MEDS: Albuterol 2.5 MG/3 ML VIAL.NEB. INHALATION ×4 (07:22→19:33)
[2025-05-12] MEDS: Fluticasone/Salmeterol 232-14 Inhaler 1 PUFF INHALATION ×2 (07:44→21:38)
[2025-05-12] MEDS: Cholecalciferol (VIT D3) 25 MCG TABLET (1,000 UNITS) 50 MCG PO ×2 (07:45→21:40)
[2025-05-12] MEDS: Senna/Docusate Sodium 1 Tablet 2 TABLET PO (07:46)
[2025-05-12] MEDS: Potassium Chloride Oral Tablet 20 MEQ PO (07:54)
--- NOTE | 2025-05-12 09:18 | PN_ITS ---
Subjective Subjective Seen on TEAM rounds today. Son Nathaniel was only available for a short time to participate by phone. Afebrile VSS - Maintaining appropriate oxygen saturation on RA Oral intake - FOOD good FLUIDS poor yesterday. Only took 765 p.o. when she had 2700 pounds of 1925. Has been in negative fluid balance for the past 4 days. She was started on IV Lasix 40 mg twice daily on Monday due to poor response to p.o. Lasix. Her weight today is 143 pounds and 15 ounces which is down from 147 pounds and 11 ounces on 05/08/2025. Weight in December 2024 was 141 pounds to 144 pounds. Discussed with nursing - no problems that need addressed Reviewed the THERAPY notes Medication list reviewed. Still requiring as needed oxycodone 3-4 times daily for breakthrough pain. Generally takes 4 on Monday.......may be related to the fact that she has no therapy on Monday and she is not moving around. Lab from this morning was personally reviewed. Odium is normal at 143 and the potassium is low normal at 3.5. BUN is stable at 21 and the creatinine is stable at 0.38. Vitamin D level is still low at 25.6 despite receiving 50 mcg of cholecalciferol. Denies lightheadedness and SOB. Not coughing. Denies orthopnea. Making good progress with therapy. Continues to c/o multiple somatic complaints........pain in the feet yet ambulated 120' today with a FWW. C/O shoulder pain.......I have recommended she follow up with Dr. Giron post [place] for possible rotator cuff tendinopathy. she is not restless or fidgety and she is not grimacing. Has been on narcotics for chronic pain for many years. Able to take a deep breath now with no grimacing or splinting of her respiration on the left. Did not c/o pain when I placed my stethoscope on the Left posterior chest when I was listening to BS's. Started c/o severe pain in the feet before I even touched her legs/feet and withdrew with even very light touch. Objective Data Objective Data Vital Signs: Vital Signs Temp Pulse Resp BP Pulse Ox O2 Del Method O2 Flow Rate 99.0 F 60 16 120/63 100 Nasal Cannula 2 05/12/25 06:00 05/12/25 07:22 05/12/25 07:22 05/12/25 06:00 05/12/25 07:22 05/12/25 07:22 05/12/25 09:02 FiO2 21 05/01/25 21:55 Oxygen Flow Rate (L/min) 2 Oxygen Delivery Method Nasal Cannula Weight: 143 lb 15.39 oz Body Mass Index (BMI) 28.0 Intake & Output: Intake and Output for Last 24 Hours 05/10/25 05/11/25 05/12/25 23:59 23:59 23:59 Intake Total 1260 / 1260 765 / 765 40 / 40 Output Total 1700 / 1700 2700 / 2700 200 / 200 Balance -440 / -440 -1935 / -1935 -160 / -160 Lab / Micro Data 05/07/25 07:17 05/12/25 05:38 Labs: Laboratory Results - last 24 hr 05/12/25 05:38: Sodium 143, Potassium 3.5, Chloride 104, Carbon Dioxide 31.8, Anion Gap 7, BUN 21 H, Creatinine 0.38 L, Estim Creat Clear Calc 44.48 L, Est GFR (MDRD) Non-Af 99, BUN/Creatinine Ratio 54.1 H, Glucose 78, Calcium 8.8 Micro: Microbiology 04/30/25 14:00 Wound Drainage - Aerobic & Anaerobic Swabs Gram Stain - Final 04/30/25 14:00 Wound Drainage - Aerobic & Anaerobic Swabs Wound Culture - Final Staphylococcus hominis hominis Staphylococcus caprae 04/30/25 14:00 Wound Drainage - Aerobic & Anaerobic Swabs Anaerobic Culture - Final No growth in 5 days. Physical Exam Const alert and no apparent distress Constitutional Narrative: Talking a lot and interacting with staff. General Appearance: cooperative Resp Resp Narrative: coarse crackles in both bases and still with diminished BS's in R base araceli. Denies orthopnea. Cardio regular rate, regular rhythm and no gallops Extremity Extremity Narrative: Less edema today but, still with pitting edema distal to the knee.....no posterior thigh edema today. General Extremity: edema Assessment & Plan Assessment/Plan (1) Physical debility: (2) Fall: QUALIFIERS: Encounter type: subsequent encounter Qualified Code(s): W19.XXXD - Unspecified fall, subsequent encounter (3) Subdural hematoma: (4) Multiple rib fractures: QUALIFIERS: Encounter type: subsequent encounter Fracture type: c losed Laterality: bilateral (5) Traumatic hematoma of right knee: (6) Cellulitis: QUALIFIERS: Site of cellulitis: extremity Site of cellulitis of extremity: lower extremity Laterality: right Qualified Code(s): L03.115 - Cellulitis of right lower limb (7) Vertebral compression fracture: QUALIFIERS: Encounter type: subsequent encounter Fracture of vertebra location: lumbar Lumbar vertebra fracture level: L1 (8) Osteoporosis: QUALIFIERS: Osteoporosis type: age-related Presence of current pathological fracture: with current pathological fracture Encounter type: s ubsequent encounter Fracture healing: with delayed healing Qualified Code(s): M80.00XG - Age-related osteoporosis with current pathological fracture, unspecified site, subsequent encounter for fracture with delayed healing (9) Exercise hypoxemia: (10) Chronic anticoagulation: (11) Paroxysmal atrial fibrillation: (12) Psoriatic arthritis: (13) Vitamin D deficiency: (14) Mild cognitive impairment of uncertain or unknown etiology: (15) Pulmonary nodule 1 cm or greater in diameter: (16) Left shoulder pain: QUALIFIERS: Chronicity: acute Qualified Code(s): M25.512 - Pain in left shoulder (17) Pulmonary hypertension: (18) Venous insufficiency: PLAN: Plan 1. Continue therapy 2. Increase vitamin D to 50 mcg twice daily. 3. CBC, BMP and magnesium on Monday 4. Continue Lasix 40 mg IV twice daily 5. 40 mill equivalents of potassium chloride p.o. today in addition to the 20 mEq already scheduled daily. 6. Orthostatics today. 7. Hold Atenolol if the systolic is less than 100 or the HR is less than 60 Charges/Coding Visit Charges Inpatient E&M: 28924 Subs Hosp L2
[2025-05-12] MEDS: Potassium Chloride Oral Tablet 20 MEQ 40 MEQ PO (09:48)
--- NOTE | 2025-05-12 13:28 | CASEMGMT ---
Social Work IDT met with patient at bedside and son participated via phone, for Team meeting. Discussed patient's progress in PT/OT/ST/SN/MD. Educated to [facility] insurance with NRD 05/12 and continued stay is not guaranteed with each review. nursing to schedule with son wound teaching. Pt will also follow up at the wound center. Pt agreed to DC 05/16. Pt has progressed well and IDT offered to set DC date. Pt agreed. Set DC for 05/16. Pt will need chronic O2 at DC. SW confirmed pt uses [facility] for PRN use. SW to contact company with new order and testing. Pt denied additional DME needs. Son can assist with med management. Son can transport at DC. SW to coordinate skilled HHC. SW provided list of skilled HHC agencies within geographical area, INN with insurance, that include quality and resource data via [employer] guide. Pt to review choices and notify this worker of choices. SW will continue to follow. Plan: DC home with son 05/16, HHC PT/OT/SN, O2 Sarah Childs MSW [employer]
[2025-05-12] MEDS: Lidocaine 5% Patch 1 PATCH TOPICAL (21:38)
[2025-05-12] MEDS: Lidocaine 5% Patch 2 PATCH TOPICAL (21:39)
[2025-05-12] MEDS: MELATONIN 3 MG TABLET PO (21:43)
[2025-05-13] VITALS (9 sets, daily range): BP systolic 107–128; BP diastolic 53–69; PULSE 61–70; RESP 15–18; TEMP 36.7–37; O2SAT 94–98; BMI 27.6
[2025-05-13] MEDS: Umeclidinium Bromide Inhaler 1 PUFF INHALATION (05:13)
[2025-05-13] MEDS: Arthritis Pain Compound 60 CLICK TUBE TOPICAL ×3 (05:14→21:33)
[2025-05-13] MEDS: 0.9% Saline Lock 10 ML Syringe IV (05:16)
[2025-05-13] MEDS: Fluticasone/Salmeterol 232-14 Inhaler 1 PUFF INHALATION ×2 (07:51→21:34)
[2025-05-13] MEDS: Cholecalciferol (VIT D3) 25 MCG TABLET (1,000 UNITS) 50 MCG PO ×2 (07:52→21:36)
[2025-05-13] MEDS: Potassium Chloride Oral Tablet 20 MEQ PO (08:02)
[2025-05-13] MEDS: FLU VACCINE 2025-26(6MOS UP) 45 MCG/0.5 ML SYRINGE IM (08:03)
--- NOTE | 2025-05-13 10:13 | PN_ITS ---
Subjective Subjective Afebrile VSS - Maintaining appropriate oxygen saturation on RA Oral intake - FOOD good FLUIDS poor......does not come even close to the fluid restriction.....yesterday she had only 570 recorded in. Fluid balance yesterday was -1555. The weight today is 141 pounds and 8.6 ounces. Discussed with nursing - no problems that need addressed Reviewed the THERAPY notes Medication list reviewed. Continues to c/o pain in her feet and left shoulder. Denies lightheadedness and orthopnea and CP and SOB at rest. Objective Data Objective Data Vital Signs: Vital Signs Temp Pulse Resp BP Pulse Ox O2 Del Method O2 Flow Rate 98.1 F 64 16 122/69 H 96 Nasal Cannula 2 05/13/25 05:10 05/13/25 05:10 05/13/25 05:10 05/13/25 05:10 05/13/25 08:00 05/13/25 07:14 05/13/25 08:00 FiO2 21 05/01/25 21:55 Oxygen Flow Rate (L/min) 2 Oxygen Delivery Method Nasal Cannula Weight: 141 lb 8.588 oz Body Mass Index (BMI) 27.6 Intake & Output: Intake and Output for Last 24 Hours 05/11/25 05/12/25 05/13/25 23:59 23:59 23:59 Intake Total 765 / 765 570 / 570 150 / 150 Output Total 2700 / 2700 2125 / 2325 425 / 425 Balance -1935 / -1935 -1555 / -1755 -275 / -275 Lab / Micro Data 05/14/25 05:40 05/14/25 05:40 Micro: Microbiology 04/30/25 14:00 Wound Drainage - Aerobic & Anaerobic Swabs Gram Stain - Final 04/30/25 14:00 Wound Drainage - Aerobic & Anaerobic Swabs Wound Culture - Final Staphylococcus hominis hominis Staphylococcus caprae 04/30/25 14:00 Wound Drainage - Aerobic & Anaerobic Swabs Anaerobic Culture - Final No growth in 5 days. Physical Exam Const alert and no apparent distress General Appearance: cooperative Resp normal respiratory effort Resp Narrative: No conversational dyspnea. Coarse crackles in both bases with diminished breath sounds in the right base versus left base but air exchange in the R base is improving with diuresis. No wheezing. Effort and Inspection: Negative for tachypneic Cardio no gallops Cardio Narrative: Irregular irregular with controlled ventricular response. GI normal to inspection, nondistended, normoactive bowel sounds and soft to palpation Extremity Extremity Narrative: The edema in the LE's is slowly improving with diuresis. General Extremity: edema Assessment & Plan Assessment/Plan (1) Physical debility: (2) Fall: QUALIFIERS: Encounter type: subsequent encounter Qualified Code(s): W19.XXXD - Unspecified fall, subsequent encounter (3) Subdural hematoma: (4) Multiple rib fractures: QUALIFIERS: Encounter type: subsequent encounter Fracture type: c losed Laterality: bilateral (5) Traumatic hematoma of right knee: QUALIFIERS: Encounter type: subsequent encounter Qualified Code(s): S80.01XD - Contusion of right knee, subsequent encounter (6) Cellulitis: QUALIFIERS: Site of cellulitis: extremity Site of cellulitis of extremity: lower extremity Laterality: right Qualified Code(s): L03.115 - Cellulitis of right lower limb (7) Vertebral compression fracture: QUALIFIERS: Encounter type: subsequent encounter Fracture of vertebra location: lumbar Lumbar vertebra fracture level: L1 (8) Osteoporosis: QUALIFIERS: Osteoporosis type: age-related Presence of current pathological fracture: with current pathological fracture Encounter type: s ubsequent encounter Fracture healing: with delayed healing Qualified Code(s): M80.00XG - Age-related osteoporosis with current pathological fracture, unspecified site, subsequent encounter for fracture with delayed healing (9) Exercise hypoxemia: (10) Chronic anticoagulation: (11) Paroxysmal atrial fibrillation: (12) Psoriatic arthritis: (13) Vitamin D deficiency: (14) Mild cognitive impairment of uncertain or unknown etiology: (15) Pulmonary nodule 1 cm or greater in diameter: (16) Left shoulder pain: QUALIFIERS: Chronicity: acute Qualified Code(s): M25.512 - Pain in left shoulder (17) Pulmonary hypertension: (18) Venous insufficiency: (19) Hypoxemia associated with sleep: PLAN: Plan 1. Continue therapy 2. Plan discharge for this Monday to home with home health care. 3. Jasmeet Armstrong will come in this week to learn how to change the dressings to the right knee. She will follow-up with Dr. Plasencia in the wound care center postdischarge 4. Add spironolactone 12.5 mg daily to the current drug regimen and start this today. 5. CBC, BMP and magnesium ordered for the a.m. I have reviewed the oxygen testing, and this patient qualifies for the home equipment and portability. The patient is mobile in the home and the community. she has desaturation with exertion and also with sleep. Charges/Coding Visit Charges Inpatient E&M: 32286 Subs Hosp L2
[2025-05-13] MEDS: Albuterol 2.5 MG/3 ML VIAL.NEB. INHALATION (11:30)
--- NOTE | 2025-05-13 11:48 | PCM.PN.SRG ---
Subjective Subjective Patient seen this morning with Dr. Plasencia, Dr. Son and Dilma, wound RN at bedside. She was sitting up in her chair in no acute distress. Denies worsening pain, numbness, tingling, weakness. Objective Data Objective Data Vital Signs: Vital Signs Temp Pulse Resp BP Pulse Ox O2 Del Method O2 Flow Rate 98.1 F 70 18 122/69 H 98 Nasal Cannula 2 05/13/25 05:10 05/13/25 11:28 05/13/25 11:28 05/13/25 05:10 05/13/25 11:28 05/13/25 11:28 05/13/25 11:28 FiO2 21 05/01/25 21:55 Oxygen Flow Rate (L/min) 2 Oxygen Delivery Method Nasal Cannula Weight: 141 lb 8.588 oz Body Mass Index (BMI) 27.6 Intake & Output: Intake and Output for Last 24 Hours 05/11/25 05/12/25 05/13/25 23:59 23:59 23:59 Intake Total 765 / 765 570 / 570 150 / 150 Output Total 2700 / 2700 2125 / 2325 425 / 425 Balance -1935 / -1935 -1555 / -1755 -275 / -275 Lab / Micro Data Attestation: I reviewed the patient's lab results. 05/07/25 07:17 05/12/25 05:38 Micro: Microbiology 04/30/25 14:00 Wound Drainage - Aerobic & Anaerobic Swabs Gram Stain - Final 04/30/25 14:00 Wound Drainage - Aerobic & Anaerobic Swabs Wound Culture - Final Staphylococcus hominis hominis Staphylococcus caprae 04/30/25 14:00 Wound Drainage - Aerobic & Anaerobic Swabs Anaerobic Culture - Final No growth in 5 days. Physical Exam Narrative Afebrile. VSS. In no acute distress Right lower extremity: Inspection: Ecchymosis and edema resolved. After packing removal there's no drainage, induration or ascending redness noted. Palpation: Diffuse patellar tenderness. No increased warmth. No pain with passive or active knee range of motion. Motor: Flexes and extends leg easily Sensation: Sensation intact to light touch Vascular: Leg is warm, dry, well perfused. Assessment & Plan Assessment/Plan (1) Traumatic hematoma of right knee: QUALIFIERS: Encounter type: subsequent encounter Qualified Code(s): S80.01XD - Contusion of right knee, subsequent encounter PLAN: Plan Continues to do well. No infection. Continue twice daily Dakin wet to dry dressing changes. Patient is pending discharge this Monday. She is scheduled to see Dr. Plasencia in wound clinic on 05/19. Will follow while she is still here. Charges/Coding Visit Charges Inpatient E&M: 21027 Subs Hosp L2
--- NOTE | 2025-05-13 11:48 | WOUNDNOTE ---
wound photo: right knee
[2025-05-13] MEDS: Lidocaine 5% Patch 2 PATCH TOPICAL (21:34)
[2025-05-13] MEDS: MELATONIN 3 MG TABLET PO (21:34)
[2025-05-13] MEDS: Lidocaine 5% Patch 1 PATCH TOPICAL (21:35)
[2025-05-14] VITALS (10 sets, daily range): BP systolic 101–129; BP diastolic 56–75; PULSE 60–80; RESP 15–16; TEMP 36.9–37.6; O2SAT 85–96; BMI 28.0
[2025-05-14] MEDS: Umeclidinium Bromide Inhaler 1 PUFF INHALATION (06:15)
[2025-05-14] MEDS: Arthritis Pain Compound 60 CLICK TUBE TOPICAL ×3 (06:15→21:30)
[2025-05-14] MEDS: 0.9% Saline Lock 10 ML Syringe IV ×3 (06:26→21:55)
[2025-05-14 06:32] LABS: Hematocrit 37.7 % (37-47); Hemoglobin 11.9 g/dL (12.0-15.0); Mean Corp Hgb Conc 31.6 g/dL (32-36); Mean Corpuscular Volume 106.5 fL (81-99); Mean Platelet Vol. 10.4 fl (6.2-12.0); Platelet Count 216 K/mm3 (150-450); RBC Distribution Width CV 15.3 % (11.6-14.6); RBC Distribution Width SD 60.6 fl (35.1-43.9); Red Blood Count 3.54 M/mm3 (4.2-5.4); White Blood Count 5.9 K/mm3 (4.4-11.0)
[2025-05-14 06:53] LABS: Anion Gap 6 (5-15); BUN 29 mg/dL (4-19); BUN/Creat Ratio 61.9 RATIO (10-20); Calcium,Total 9.0 mg/dL (7.6-11.0); Carbon Dioxide 33.4 mmol/L (21.0-32.0); Chloride 103 mmol/L (98-108); Estimated Creatinine Clearance 44.08 ml/min (50-250); Glucose 76 mg/dL (70-99); Magnesium 2.3 mg/dL (1.5-2.2); Potassium 3.9 mmol/L (3.3-5.1)
[2025-05-14] MEDS: Albuterol 2.5 MG/3 ML VIAL.NEB. INHALATION ×4 (07:32→22:00)
[2025-05-14 08:17] LABS: Pro- Brain NATRIURETIC PEPTIDE 1718 pg/mL (<=1800)
[2025-05-14] MEDS: Cholecalciferol (VIT D3) 25 MCG TABLET (1,000 UNITS) 50 MCG PO ×2 (08:23→21:32)
[2025-05-14] MEDS: Fluticasone/Salmeterol 232-14 Inhaler 1 PUFF INHALATION ×2 (08:25→21:30)
[2025-05-14] MEDS: Potassium Chloride Oral Tablet 20 MEQ PO ×2 (08:25→14:07)
--- NOTE | 2025-05-14 13:03 | PN_ITS ---
Subjective Subjective Afebrile Vital signs stable Fluid balance yesterday was -975 and she was -410 mL overnight but, weight increased 2 pounds? All lab drawn this morning was personally reviewed. Hemoglobin is 11.9, down from 12.7 on 05/07/2025. White blood cell count is normal. Platelets are normal. Sodium is stable at 142 and the potassium is 3.9. Serum bicarb is increased at 33.4........contraction alkalosis? or due to CO2 retention....suspect contraction alkalosis. The BUN is 29 which is up from 20 on 05/10/2025. Creatinine is up to 0.47 from 0.38 on 05/12/2025. Magnesium is good at 2.3. BNP is 1,718 which is good for her. When I entered her room she once again had the feet elevated only 6 off the floor. She denies lightheadedness, shortness of breath, orthopnea, chest pain, palpitations, dysuria. Continues to complain of left shoulder pain and pain in her feet which is chronic. She does not look to be in any discomfort. She is alert. No apparent distress. Appears comfortable. Lungs-coarse crackles in both bases with much better air exchange in the right base today. No wheezing, no tachypnea and no conversational dyspnea. Heart-irregular irregular with controlled ventricular response. more edema in the legs today than yesterday......non-compliant with elevation despite multiple directions that her legs are to be elevated to the full extent while she is in the recliner. MORALES wraps are in place. Objective Data Objective Data Vital Signs: Vital Signs Temp Pulse Resp BP Pulse Ox O2 Del Method O2 Flow Rate 98.4 F 80 16 129/75 H 92 Nasal Cannula 1 05/14/25 06:00 05/14/25 11:45 05/14/25 11:45 05/14/25 06:00 05/14/25 11:45 05/14/25 11:45 05/14/25 11:45 FiO2 21 05/01/25 21:55 Oxygen Flow Rate (L/min) 1 Oxygen Delivery Method Nasal Cannula Weight: 143 lb 8.335 oz Body Mass Index (BMI) 28.0 Intake & Output: Intake and Output for Last 24 Hours 05/12/25 05/13/25 05/14/25 23:59 23:59 23:59 Intake Total 570 / 570 1450 / 1450 240 / 240 Output Total 2125 / 2325 2425 / 2425 650 / 650 Balance -1555 / -1755 -975 / -975 -410 / -410 Lab / Micro Data 05/14/25 05:40 05/14/25 05:40 Labs: Laboratory Results - last 24 hr 05/14/25 05:40: WBC 5.9, RBC 3.54 L, Hgb 11.9 L, Hct 37.7, MCV 106.5 H, MCH 33.6 H, MCHC 31.6 L, RDW Std Deviation 60.6 H, RDW Coeff of Mildred 15.3 H, Plt Count 216, MPV 10.4, Sodium 142, Potassium 3.9, Chloride 103, Carbon Dioxide 33.4 H, Anion Gap 6, BUN 29 H, Creatinine 0.47 L, Estim Creat Clear Calc 44.08 L, Est GFR (MDRD) Non-Af 94, BUN/Creatinine Ratio 61.9 H, Glucose 76, Calcium 9.0, M agnesium 2.3 H, NT pro BNP II 1718 Micro: Microbiology 04/30/25 14:00 Wound Drainage - Aerobic & Anaerobic Swabs Gram Stain - Final 04/30/25 14:00 Wound Drainage - Aerobic & Anaerobic Swabs Wound Culture - Final Staphylococcus hominis hominis Staphylococcus caprae 04/30/25 14:00 Wound Drainage - Aerobic & Anaerobic Swabs Anaerobic Culture - Final No growth in 5 days. Assessment & Plan Assessment/Plan (1) Physical debility: (2) Fall: QUALIFIERS: Encounter type: subsequent encounter Qualified Code(s): W19.XXXD - Unspecified fall, subsequent encounter (3) Subdural hematoma: (4) Multiple rib fractures: QUALIFIERS: Encounter type: subsequent encounter Fracture type: c losed Laterality: bilateral (5) Traumatic hematoma of right knee: QUALIFIERS: Encounter type: subsequent encounter Qualified Code(s): S80.01XD - Contusion of right knee, subsequent encounter (6) Cellulitis: QUALIFIERS: Site of cellulitis: extremity Site of cellulitis of extremity: lower extremity Laterality: right Qualified Code(s): L03.115 - Cellulitis of right lower limb (7) Vertebral compression fracture: QUALIFIERS: Encounter type: subsequent encounter Fracture of vertebra location: lumbar Lumbar vertebra fracture level: L1 (8) Osteoporosis: QUALIFIERS: Osteoporosis type: age-related Presence of current pathological fracture: with current pathological fracture Encounter type: s ubsequent encounter Fracture healing: with delayed healing Qualified Code(s): M80.00XG - Age-related osteoporosis with current pathological fracture, unspecified site, subsequent encounter for fracture with delayed healing (9) Exercise hypoxemia: (10) Chronic anticoagulation: (11) Paroxysmal atrial fibrillation: (12) Psoriatic arthritis: (13) Vitamin D deficiency: (14) Mild cognitive impairment of uncertain or unknown etiology: (15) Pulmonary nodule 1 cm or greater in diameter: (16) Left shoulder pain: QUALIFIERS: Chronicity: acute Qualified Code(s): M25.512 - Pain in left shoulder (17) Pulmonary hypertension: (18) Venous insufficiency: (19) Hypoxemia associated with sleep: PLAN: Plan 1. Continue therapy. 2. BL venous US's to r/o VTE as etiology of swelling and pain in the legs. Has not been on DVT prophylaxis secondary to intracerebral bleeding. 3. PA and lateral CXR today to follow up on the effusions 4. ABG today....suspect she has contraction alkalosis. 5. Continue spironolactone. K is only 3.9 today so we will give a extra dose of potassium 20 mEq to get it above 4. Magnesium is good. 6. Pt is to be in bed anytime she is not with therapy orn using the RR. 7. Recheck a BMP in the AM. 8. Diamox 250 mg IV x 1 today. Charges/Coding Visit Charges Inpatient E&M: 07322 Subs Hosp L1
--- NOTE | 2025-05-14 13:10 | VDLE_ITS ---
Reason For Study Reason For Study: Bilateral leg swelling RIGHT LEFT GSV is normal. GSV is normal. CFV is compressible, spontaneous, phasic, competent CFV is compressible, spontaneous, phasic, competent, and demonstrates normal augmentation. and demonstrates normal augmentation. FV is compressible, spontaneous, phasic, competent FV is compressible, spontaneous, phasic, competent and demonstrates normal augmentation. and demonstrates normal augmentation. PopV not visualized due to bandage. POP V is compressible, spontaneous, phasic, competent T/P Trunk is compressible. Normal venous flow noted and demonstrates normal augmentation. with augmentation. T/P Trunk is compressible. PTV is compressible. PTV is compressible. RT PerV is compressible. LT PerV is compressible. Procedure This is a venous duplex using B-mode, color flow and spectral Doppler. Exam performed portable in patient room. A preliminary report was called and/or faxed to Dr. Son. VL/Venous Duplex US - Marck Extrem Interpretation Summary Deep veins of the lower extremities are bilaterally patent and compressible seg mentally. There is no evidence of deep vein thrombosis on either side. Valvular competence appears intact within the p roximal deep venous systems bilaterally. The great saphenous veins appear bilaterally patent and compressible segmentall y. The right popliteal vein was not visualized due to the presence of a bandage. Ordering Physician: Kaylee Son Referring Physician: Yumiko Michel Performed By: Jeanie Zamarripa RVT
--- NOTE | 2025-05-14 13:10 | RAD_ITS ---
PROCEDURE: CHEST PA AND LATERAL 05/14/2025 REASON FOR EXAM: RALES TECHNIQUE: Procedure Code: RADCXR Modality: DX Procedure: CHEST PA AND LATERAL COMPARISON: Portable chest, 05/06/2025. FINDINGS: There has been interval improvement in the pleural effusions right remaining [id number]-left. There is bibasilar atelectasis or scarring. There is again noted a 13 mm in diameter nodule in the midlung zone on the right. There is cardiomegaly. There is calcific vascular disease of the thoracic aorta. There is a right shoulder arthroplasty. There has been an upper lumbar vertebroplasty. The visualized abdominal bowel gas pattern is unremarkable. RAD/Chest PA and Lateral IMPRESSION: Improving pleural effusions. Other findings as noted. Reading Location: [id number]
[2025-05-14] MEDS: AcetaZOLAMIDE 500 MG/10 ML Vial 250 MG IV (14:07)
--- NOTE | 2025-05-14 19:51 | NURSING ---
Wet to dry dressing changed, per order, to rt knee. minimal sanguineous drainage present with no odor. Son present for dressing change education. Questions answered. Son states he feels comfortable with changing procedure and has some wound care experience. Pt repositioned for comfort and denies needs.
[2025-05-14] MEDS: Lidocaine 5% Patch 2 PATCH TOPICAL (21:30)
[2025-05-14] MEDS: Lidocaine 5% Patch 1 PATCH TOPICAL (21:30)
[2025-05-14] MEDS: MELATONIN 3 MG TABLET PO (21:31)
[2025-05-14] MEDS: Senna/Docusate Sodium 1 Tablet 2 TABLET PO (21:32)
[2025-05-14 22:15] LABS: Allen Test Positive; Base Excess 13 mmol/L (-2 to +2); FI02 1.0; PO2 83 mmHG (75-100); SITE R Radial; SO2 96 % (95-99)
[2025-05-15] MEDS: Umeclidinium Bromide Inhaler 1 PUFF INHALATION (05:33)
[2025-05-15] MEDS: Arthritis Pain Compound 60 CLICK TUBE TOPICAL ×3 (05:33→20:16)
[2025-05-15] MEDS: 0.9% Saline Lock 10 ML Syringe IV (05:42)
[2025-05-15] MEDS: Buprenorphine 10 MCG PATCH.TDWK 1 PATCH TD (05:42)
[2025-05-15 05:43] VITALS: BP 115/66; PULSE 62; RESP 16; TEMP 36.5; O2SAT 97; BMI 27.3
[2025-05-15 07:13] VITALS: PULSE 75; RESP 16; O2SAT 94
[2025-05-15] MEDS: Albuterol 2.5 MG/3 ML VIAL.NEB. INHALATION (07:13)
[2025-05-15 08:06] LABS: Anion Gap 17 (5-15); BUN 19 mg/dL (4-19); BUN/Creat Ratio 34.1 RATIO (10-20); Calcium,Total 8.8 mg/dL (7.6-11.0); Carbon Dioxide 22.0 mmol/L (21.0-32.0); Chloride 104 mmol/L (98-108); Estimated Creatinine Clearance 43.55 ml/min (50-250); Glucose 104 mg/dL (70-99); Potassium 3.6 mmol/L (3.3-5.1)
[2025-05-15] MEDS: Potassium Chloride Oral Tablet 20 MEQ PO (09:08)
[2025-05-15] MEDS: Cholecalciferol (VIT D3) 25 MCG TABLET (1,000 UNITS) 50 MCG PO ×2 (09:08→20:15)
[2025-05-15] MEDS: Fluticasone/Salmeterol 232-14 Inhaler 1 PUFF INHALATION ×2 (09:09→20:17)
[2025-05-15] MEDS: Senna/Docusate Sodium 1 Tablet 2 TABLET PO ×2 (09:09→20:16)
[2025-05-15] MEDS: Potassium Chloride Oral Tablet 20 MEQ 40 MEQ PO (09:21)
--- NOTE | 2025-05-15 10:28 | CASEMGMT ---
Addendum entered by Sarah Childs 05/15/25 12:54: [facility] can accept. SW confirmed with [facility] that they will deliver portable tank to the pt's room prior to DC. SW confirmed with pt that son complete wound teaching. Original Note: Social Work SW spoke with pt to follow up on HHC preference. Pt chose [facility], whom she used prior. SW notified DC planning lead to place referral Sarah Childs [employer] SUPERINTENDENT
--- NOTE | 2025-05-15 10:47 | CASEMGMT ---
Discharge Planning HH referral sent to [facility]. Kristi Chatterjee DC Planning Asst.
--- NOTE | 2025-05-15 11:25 | PCM.DC.SUM ---
Providers Date of Admission: 04/29/25 Date of Discharge: 05/16/25 Primary Care Physician: Dr. Yumiko Michel MD Consultations 04/30/25 11:19 Consult: Plastic Surgery Routine Consulting Provider: Jack Plasencia Reason for Consult: Hematoma/infected right knee EMERGENT Consult: No Notified: Yes Date Notified: 04/30/25 Time Notified: 11:19 Method of Notification: Text 04/30/25 12:03 Consult: Pain Management Routine Consulting Provider: Daniel Hall Reason for Consult: pain management EMERGENT Consult: No Notified: Yes Date Notified: 04/30/25 Time Notified: 12:03 Method of Notification: Answering Service Reason For Visit: MULTIPLE TRAUMAS Diagnosis Discharge Diagnosis (1) Physical debility: Status: Acute Code(s): R53.81 - Other malaise (2) Fall: Status: Acute Code(s): W19.XXXA - Unspecified fall, initial encounter Qualifiers: Encounter type: subsequent encounter Qualified Code(s): W19.XXXD - Unspecified fall, subsequent encounter Plan: Ground level fall due to dizziness. (3) Subdural hematoma: Status: Acute Code(s): S06.5XAA - Traumatic subdural hemorrhage with loss of consciousness status unknown, initial encounter Plan: No intervention required. (4) Multiple rib fractures: Status: Acute Code(s): S22.49XA - Multiple fractures of ribs, unspecified side, initial encounter for closed fracture Qualifiers: Encounter type: subsequent encounter Fracture type: closed Laterality: bilateral Plan: Multiple BL non-displaced rib fractures. (5) Traumatic hematoma of right knee: Status: Resolved Code(s): S80.01XA - Contusion of right knee, initial encounter Qualifiers: Encounter type: subsequent encounter Qualified Code(s): S80.01XD - Contusion of right knee, subsequent encounter Plan: Hematoma with abrasion over the R knee. Abrasion was a black eschar at the time she arrived on rehab. The eschar was removed by Dr. Plasencia at the bedside and hematoma was manually evacuated. Wet to dry dressings were initiated. (6) Cellulitis: Status: Resolved Code(s): L03.90 - Cellulitis, unspecified Qualifiers: Laterality: right Site of cellulitis: extremity Site of cellulitis of extremity: lower extremity Qualified Code(s): L03.115 - Cellulitis of right lower limb Plan: Fluid from the right knee hematoma grew Staphylococcus hominis hominis and Staphylococcus Caprae. The Staphylococcus hominis hominis was resistant to clindamycin, oxacillin and tetracycline. There was positive inducible clindamycin resistance. She was initially placed on Keflex and when the culture was resulted she was transition to doxycycline. (7) Vertebral compression fracture: Status: Acute Code(s): M48.50XA - Collapsed vertebra, not elsewhere classified, site unspecified, initial encounter for fracture Qualifiers: Encounter type: subsequent encounter Fracture of vertebra location: lumbar Lumbar vertebra fracture level: L1 Plan: She had a vertebroplasty of L2 in the past done by Dr. Malagon. She was also known to have a 25% loss of height of the body of L3. On a CT scan of the chest done on 04/22/2025 there were compression fractures of T8 and L1 which were new. (8) Osteoporosis: Status: Chronic Code(s): M81.0 - Age-related osteoporosis without current pathological fracture Qualifiers: Encounter type: subsequent encounter Fracture healing: with delayed healing Osteoporosis type: age-related Presence of current pathological fracture: with current pathological fracture Qualified Code(s): M80.00XG - Age-related osteoporosis with current pathological fracture, unspecified site, subsequent encounter for fracture with delayed healing Plan: Was on no treatment other than vitamin D supplementation when she arrived on rehab. She had a DEXA scan and February 2025 that showed a T-score of -2.6 at L1, L3-L4. Femoral neck T-score was -3.9 and the total hip T-score was -4.1 and this is consistent with severe osteoporosis. There had been a 32.1% decrease in bone mineral density since the prior examination. She was seen by a doctor who treats osteoporosis and she was given a RX for Forteo. Her insurance denied payment and so she was never started on treatment. I recommended she follow up with Dr. Kendell Liang post DC from rehab and she was agreeable. A referral was sent to Dr. Liang and her office will be calling the patient to set up an appt following DC from rehab. (9) Exercise hypoxemia: Status: Chronic Code(s): R09.02 - Hypoxemia Plan: Oxygen saturation on a 2 L/min nasal cannula is appropriate when exercising. (10) Chronic anticoagulation: Status: Inactive Code(s): Z79.01 - FCI (current) use of anticoagulants Plan: She was on Xarelto at the time of her fall but due to the subdural hematoma Xarelto was discontinued. She has had some falls over the past couple years. Question whether the risk outweighs the benefit at this drug at this point. Will defer that decision to neurosurgery/neurology. (11) Paroxysmal atrial fibrillation: Status: Chronic Code(s): I48.0 - Paroxysmal atrial fibrillation (12) Psoriatic arthritis: Status: Chronic Code(s): L40.50 - Arthropathic psoriasis, unspecified (13) Vitamin D deficiency: Status: Chronic Code(s): E55.9 - Vitamin D deficiency, unspecified Plan: Veronica was taking 50 mcg of cholecalciferol daily at home and states that she is very compliant. The vitamin D level was checked on 04/30/2025 and was low at 27.6. She was on cholecalciferol 50 mcg since arrival on rehab.......it was rechecked on 05/10/2025 and was still low at 25.6. Vitamin D was increased to 50 mcg BID. She will need a follow up Vitamin D level checked in 4 weeks. (14) Mild cognitive impairment of uncertain or unknown etiology: Status: Chronic Code(s): G31.84 - Mild cognitive impairment of uncertain or unknown etiology (15) Pulmonary nodule 1 cm or greater in diameter: Status: Chronic Code(s): R91.1 - Solitary pulmonary nodule Plan: the nodule is not solitary. There are calcified granulomas in the R lung. The largest is along the R minor fissure and on the recent CT chest on 04/22/25 it measured 15 mm. The measurement in October of 2024 was 1.4 cm X 1.1 cm. she will continue to follow with pulmonary. (16) Left shoulder pain: Status: Acute Code(s): M25.512 - Pain in left shoulder Qualifiers: Chronicity: acute Qualified Code(s): M25.512 - Pain in left shoulder Plan: No fracture or dislocation of the L shoulder on plain XRAY. She has seen Dr. Giron in the past for a R shoulder replacement and she will follow up with Dr. Giron as needed. (17) Pulmonary hypertension: Status: Chronic Code(s): I27.20 - Pulmonary hypertension, unspecified Plan: The right ventricular systolic pressure in October 2024 on a transthoracic echocardiogram was estimated at 36. (18) Venous insufficiency: Status: Chronic Code(s): I87.2 - Venous insufficiency (chronic) (peripheral) (19) Hypoxemia associated with sleep: Status: Chronic Code(s): G47.36 - Sleep related hypoventilation in conditions classified elsewhere Plan: Abnormal overnight trending pulse ox. 62% of the time that she was monitored the pulse ox ranged from 80 to 89%. We have been applying O2 at 2 LPM anytime she has been sleeping and the pulse ox on oxygen has been consistently > 90. Plan 1. OR home 2. [facility] at OR 3. Son, Nathaniel, will change the dressings on the R knee. He came in for education with nursing prior to OR. 4. She will follow up with Dr. Michel for primary care. She will follow up with Dr. Hall for pain management. She has a appt with neurology scheduled for 05/21......will defer restarting AC to neurology. She will follow up with Dr. Giron PRN for left shoulder pain. 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 She has an appt with Dr. Plasencia for Monday [facility]. She will follow up with Dr. Kendell Liang for management of osteoporosis........will continue the Fosamax at OR and Calcium/Vitamin D. I think she would benefit from Prolia or Reclast. Insurance did not approve Forteo. Dr. Liang's office will call her to schedule an appt after she has been discharged from rehab. 5. She will need a Vitamin D level done in another month to makes sure the Vitamin D level is WNL after increasing the Cholecalciferol to 50 mcg BID. 6. Continue Lasix and Aldactone at OR. BMP in 1 week. Medications at Discharge Home Medications atenolol 25 mg tablet 25 mg PO DAILY Atrial fibrillation 06/26/21 folic acid 1 mg tablet 1 mg PO DAILY supplement 06/26/21 albuterol sulfate 90 mcg/actuation aerosol inhaler 2 puff inhalation Q6H PRN dyspnea 11/18/24 tiotropium bromide 18 mcg capsule with inhalation device (Spiriva with HandiHaler) 1 cap inhalation DAILY PRN shortness of breath 11/18/24 risankizumab-rzaa 150 mg/mL subcutaneous pen injector (Skyrizi) 150 mg subcut Q90D . 12/24/24 baclofen 5 mg tablet 5 mg PO QHS pain 04/22/25 empagliflozin 10 mg tablet (Jardiance) 10 mg PO DAILY glucose 04/29/25 gabapentin 100 mg capsule 100 mg PO Q12H nerve pain 04/29/25 melatonin 3 mg capsule 3 mg PO QHS sleep 04/29/25 mometasone-formoterol HFA 100 mcg-5 mcg/actuation aerosol inhaler (Dulera) 2 inh inhalation BID sob 04/29/25 OXYGEN - Supplemental ([facility] INFORMATIONAL USE ONLY) 05/01/25 alendronate 70 mg tablet 70 mg PO Q7D@0700 #4 tabs 05/15/25 buprenorphine 10 mcg/hour weekly transdermal patch 1 patch transdermal Q7D 1 month #4 ea 05/15/25 furosemide 40 mg tablet (Lasix) 40 mg PO DAILY #30 tabs 05/15/25 oxycodone-acetaminophen 5 mg-325 mg tablet 1 tab PO TID PRN pain 4-10 1 week #21 tabs 05/15/25 pantoprazole 20 mg tablet,delayed release 20 mg PO BID #60 tabs 05/15/25 spironolactone 25 mg tablet 12.5 mg (1/2 x 25 mg) PO DAILY #30 tabs 05/15/25 cholecalciferol (vitamin D3) 50 mcg (2,000 unit) capsule 50 mcg PO BID #60 caps 05/16/25 potassium chloride 10 mEq capsule,extended release 10 meq PO DAILY #30 caps 05/16/25 Hospital Course Operations None Procedures None Summary of Care Provided Minutes Spent on Discharge: 55 Hospital Course: VERONICA ROSALES, is a 85 YO F with a PMH of hypertension, PAF, chronic anticoagulation with Xarelto, chronic diastolic congestive heart failure with preserved ejection fraction of 60%, biatrial enlargement (left greater than right), tricuspid regurgitation, history of tobacco dependence, COPD, anxiety/depression, GERD, psoriatic arthritis (on Skyrizi every 3 months), history of shingles, history of a proximal right humeral fracture, osteoporosis (on no medication at admission to rehab except Vitamin D), chronic pain syndrome (follows with Dr. Hall for pain management), CONCEPCION and thoracic/lumbar compression fractures (+ hx of kyphoplasty of L2) who presented to the emergency department at [facility] on 04/22/2025 complaining of feeling dizzy all day long. The dizziness led to a fall and she was complaining of left shoulder pain. CT scan of the brain showed a subdural hemorrhage which was 6 mm in thickness with no mass effect. CT of the chest showed multiple bilateral nondisplaced rib fractures. There was cardiomegaly present and small bilateral pleural effusions with increased interstitial changes especially in the bases of the lungs. There were multiple vertebral compression fractures including T8, L1 and L2 and L3. T8 and L1 are acute and L2 and L3 are old. Left hand x-ray showed a probable nondisplaced fracture of the left scaphoid but, when seen by ortho at previous hospital they did not feel there was a fx present. XRAYS of the right knee showed no fracture or dislocation. There was prepatellar swelling due to a superficial hematoma. She was given K Centra and transferred to [facility] to the trauma service. Consult was obtained with neurosurgery. A repeat CT head showed improvement in the right frontal subdural hematoma and there was also interhemispheric subdural hematoma noted. No surgical intervention was indicated. Neurosurgery recommended holding Xarelto but, they were okay with Lovenox 30 mg SQ every 12 hours. No significant complications while at the previous hospital. She was transferred to the acute inpt rehab unit at [facility] on 04/29/25 for 3 hours of therapy daily to restore function/independence at or near her level prior to the fall. At presentation to rehab the R knee was noted to have a large prepatellar hematoma with a black eschar in the center. the knee was red and warm to the touch. Dr. Luis Angel cordova plastic surgery was consulted and he made an incision over the knee at the bedside to drain the hematoma. The eschar was excised. Culture of the fluid was sent and grew Staphylococcus hominis hominis and Staphylococcus Caprae. She was started on Keflex. BID wet - dry dressings were ordered. The Staphylococcus hominis hominis was oxacillin resistant and had inducible clindamycin resistance. Keflex was discontinued and doxycycline 100 mg twice daily was ordered for [address] Plasencia continued to follow her while she was a pt on rehab. At OR the wound is much improved. Ecchymosis and edema had resolved and there was no discharge from the wound. There was no increased warmth to touch around the wound. She had no pain with passive or active range of motion of the knee. She is going to follow up with Dr. Plasencia in the [facility] post OR from rehab. Veronica's son Nathaniel came in for training prior to her DC to learn how to dress the wound. BID wet to dry dressing were continued at OR. The vitamin D level was checked at admission and it was low at 27.6 despite taking 50 mcg of Cholecalciferol daily. She stated she had been compliant with this medication. We elected to leave her on 50 mcg daily and we rechecked a vitamin D level in 10 days and it was still low at 25.6. The vitamin D was increased to 50 mcg of Cholecalciferol twice daily. She was started on Fosamax 10 mg daily and had no complaint of increased heartburn. Because she has a history of GERD we wanted to increase the famotidine but her creatinine clearance is decreased and increasing the Famotidine was not an option. She was transitioned to Protonix 20 mg BID after talking with the pharmacist. She had no adverse side effects with Fosamax and after a week she was transitioned to Fosamax 70 mg once a week. Calcium was normal and she was not started on a calcium supplement. She had been prescribed Forteo in the past because she has severe osteoporosis with pathologic fractures of her vertebrae but, insurance denied and nothing else was ever started. I think she would benefit from an immunologic and I recommended she follow-up with Dr. Kendell Liang from endocrinology to manage the osteoporosis. She continues to complain of severe pain and consult was obtained with Dr. Hall from pain management. The Butrans patch was increased from 5 mcg to 10 mcg weekly. She was also prescribed oxycodone 5 mg every 4 hours as needed for breakthrough pain. Gabapentin 100 mg twice daily and baclofen 5 mg at bedtime were continued. She was also placed on 1 g of Tylenol every 8 hours. Pain is better than at admission and she has been taking Oxycodone 5 mg 3-4 times a day. She has multiple complaints of pain but, she has been able to do her therapy for 3 hours a day and she is sleeping well at night. She and I agreed that her pain is adequately controlled and that she will continue to follow up with Dr. Hall as an OP. She was given a RX for #4 Butrans 10 mcg patches at OR. She was also given a prescription for Percocet 5/325 mg, #21, and will use this for breakthrough pain every 4-[address] Hall's office was notified that I gave Veronica a RX for Butrans. She has persistent complaint of left shoulder pain. X-ray at admission showed no fracture or dislocation. It is possible that due to the fall she has a rotator cuff tendinopathy/tear. She has seen Dr. Chente Giron in the past for a right shoulder replacement and she will follow-up with him as needed for persistent left shoulder pain. Veronica had an exacerbation of chronic diastolic congestive heart failure while on rehab. Oral Lasix dosing was increased but this failed to resolve the problem. She was transition to IV Lasix 40 mg twice daily and had a better diuresis but developed a contraction alkalosis. She continued to have pitting edema both lower extremities and was noncompliant with elevation. Spironolactone 12.5 mg daily was added to the drug regimen. Potassiums have been low with the Lasix and in addition to the spironolactone she did receive supplemental potassium. Prior to discharge she had 2 days of bed rest with her legs elevated anytime she was not doing therapy or using the restroom. The edema of the lower extremity significantly improved with elevation. She was transition to oral Lasix 40 mg once a day and Spironolactone was continued. She was given a RX for calf compression wraps and told that she can get these at [facility] in [place]. We talked about the importance of Leg elevation multiple times during her time on rehab. Veronica has oxygen as an OP which she uses PRN. The pulse ox on RA with exertion was in the 80's and we ordered oxygen supplementation at 1-2 LPM any time she was exerting herself. Pulse ox on RA at rest while awake was 90% or greater. An overnight trending pulse ox was done and was very abnormal with the pulse ox 89% or less over 60% of the time. Veronica has never complained of shortness of breath while on rehab. She has not had a cough. She had better exercise performance when wearing the oxygen. She has been sleeping well and awakens feeling rested in the AM. She is very alert during the days. Because of the lower extremity swelling and the hypoxemia we elected to do venous ultrasounds of her lower extremities and these were negative for DVT. Veronica did well with therapy and she was able to be discharged home on 05/16/25. She will have home health care at OR. Her son Nathaniel was taught how to do the dressing changes. Natahniel lives with Veronica and he is able to assist her. At the time of discharge she is able to do 6 sit to stand using her right upper extremity to rise at standby assist. He is able to ascend to curb steps using a front wheeled walker at contact-guard assist and she can descend with minimal assistance needed. She has ambulated up to 200 feet with a front wheel walker on various surfaces. Veronica is supervision/set up for eating and grooming. She requires minimal assistance with bathing and upper body dressing. She is supervision/set up for lower body dressing and toileting. She is standby assist for toilet transfer. She is contact-guard assist for tub/shower transfer. [facility] home health care was arranged by the social work faculty member prior to discharge. Home O2 was also arranged and she was instructed to wear her O2 anytime she is exerting herself and anytime she is napping or sleeping. She will follow-up with her pulmonary physician as previously scheduled postdischarge. She will need a BMP in 1 week and a vitamin D level in 1 month. She has an appointment to follow-up with neurology on 05/21/2025 and the decision to restart Xarelto will be made by neurology and/or cardiology. With hx of falls the risk of AC may outweigh the benefit. She may be a candidate for a Watchman procedure. Physical Exam Const alert, oriented x3 and no apparent distress Constitutional Narrative: Talking a lot and interacting with staff. General Appearance: cooperative and well kempt HEENT HEENT Narrative: FAcial bruising has resolved. Eyes PERRL, EOMs intact bilaterally, conjunctivae normal and no scleral icterus Eyes Narrative: No discharge from the eyes and no conjunctival hemorrhage or injection of the conjunctiva. Neck supple and No nodes General: trachea midline Resp normal respiratory effort Resp Narrative: good air exchange in the bases today. Has persistent coarse crackles in both bases.....I suspect this is due to scarring/fibrosis. NO wheezing. Not tachypneic and no conversational dyspnea. Denies orthopnea. . Effort and Inspection: able to speak in complete sentences and symmetric chest movement; Negative for tachypneic Cardio no gallops and no JVD Cardio Narrative: Irregular irregular with controlled ventricular response. GI normal to inspection, nondistended, normoactive bowel sounds, soft to palpation and non-tender no CVA tenderness Back/Spine Back/Spine Narrative: No c/o back pain today. Extremity no calf tenderness Extremity Narrative: The edema in the LE's is limited to the ankles and dorsum of the foot........The L ankle and foot have minimal edema.........it is worse in the R foot and ankle......more likely than not related to the hematoma and wound on the R knee. Skin Skin Narrative: The swelling and erythema of the right knee has resolved. There is no eschar present. There is still an opening in the skin but the base of the wound is pink and granulating. There is no purulent discharge. There is no odor. There is no increased warmth to touch. Rashes: no rashes Neuro oriented x3 and CN's II-XII intact bilaterally Neuro Narrative: Can move all extremities. No visual field cuts. Tongue protrudes on the midline. No facial asymmetry. Grossly normal mentation. Not somnolent. Not complaining of cephalgia. Psych mental status grossly normal, cooperative and affect normal Psych Narrative: Scored 40 out of a possible 50 on the BCAT. This is consistent with mild cognitive impairment. Weight / BMI Weight Weight: 141 lb 6 oz Body Mass Index (BMI) 27.6 ABG / Lab / Microbiology Data 05/14/25 05:40 05/15/25 07:10 Laboratory: Laboratory Results - last 24 hr 05/15/25 07:10: Sodium 143, Potassium 3.6, Chloride 104, Carbon Dioxide 22.0, Anion Gap 17 H, BUN 19, Creatinine 0.56 L, Estim Creat Clear Calc 43.55 L, Est GFR (MDRD) Non-Af 90, BUN/Creatinine Ratio 34.1 H, Glucose 104 H, Calcium 8.8 Microbiology: Microbiology 04/30/25 14:00 Wound Drainage - Aerobic & Anaerobic Swabs Gram Stain - Final 04/30/25 14:00 Wound Drainage - Aerobic & Anaerobic Swabs Wound Culture - Final Staphylococcus hominis hominis Staphylococcus caprae 04/30/25 14:00 Wound Drainage - Aerobic & Anaerobic Swabs Anaerobic Culture - Final No growth in 5 days. ABG: ABG 05/14/25 22:12 Specimen Type ART Sample Site R Radial pH 7.45 Bicarbonate Actual 37.2 H Total CO2 39 Base Excess 13 H O2 Saturation 96 O2 % 1.0 ABG pCO2 54.0 H ABG pO2 83 Juice Test Positive O2 Delivery Device Cannula Vent Mode Not entered Radiography Diagnostic Testing: Radiology Impression Chest X-Ray 05/14/25 13:10 IMPRESSION: Improving pleural effusions. Other findings as noted. Reading Location: [id number] Venous Doppler Study 05/14/25 13:10 Interpretation Summary Deep veins of the lower extremities are bilaterally patent and compressible segmentally. There is no evidence of deep vein thrombosis on either side. Valvular competence appears intact within the proximal deep venous systems bilaterally. The great saphenous veins appear bilaterally patent and compressible segmentally. The right popliteal vein was not visualized due to the presence of a bandage. Ordering Physician: Kaylee Son Referring Physician: Yumiko Michel Performed By: Jeanie Zamarripa RVT D/C Instructions DC O2, CPAP, BIPAP Needs Home O2 Discharge instructions: Yes Type of respiratory needs?: Oxygen Oxygen frequency: With Ambulation Oxygen liters per minute during Ambulation: 1-2 and With Sleeping Oxygen liters per minute when sleepin L DC home with Oxygen: Yes Home O2 MD Review: I have reviewed the oxygen testing, and the patient qualifies for home oxygen equipment and portability. The patient is mobile in the home and the community. Meaningful Use Info Meaningful Use Meaningful Use Diagnoses (Choose all that apply): None applicable (SDH due to a fall. ) and CHF (Acute on chronic diastolic congestive heart failure.) CHF MORALES/ARB ordered at discharge?: No Reason MORALES/ARB not ordered?: Normal EF Documented LVEF (%): 60 Discharge Plan Admission Admit Date/Time: 04/29/25 18:05 Primary Reason for Your Visit: Debility due to fall/SDH/multiple fractures Attending Provider: Kaylee Son Primary Care Provider: Yumiko Michel Consulting Providers: Jack Plasencia; Daniel Hall Instructions Patient Instructions: CVI Additional Instructions / Restrictions: 1. You will need to follow up with Dr. Hall next week for prescriptions for pain medication. 2. You are going to follow up in the wound care center with Dr. Plasencia for the wound on the R knee 3. I recommend that you follow up with Dr. Kendell Liang, welding machine operator electroslag, for treatment of your severe osteoporosis. Even on Vitamin D 50 mcg daily your Vitamin D level was low. We have increased the vitamin D to twice a day. Vitamin D is necessary to be able to absorb calcium from the gastrointestinal tract. Vitamin D comes from the sun........which we don't see for a good portion of the year in [place]. 4. You have chronic lung disease. Your oxygen drops with exertion and also when sleeping. You should be wearing oxygen anytime you are exerting yourself (like with walking) and anytime you are napping/sleeping. You do not have to wear the oxygen if you are just sitting in a chair. 5. You have a history of congestive heart failure. You also have varicose veins in your legs and this causes a condition called chronic venous insufficiency. Both congestive heart failure and venous insufficiency caused swelling in your legs. The things that you can do to help decrease the swelling in your legs are consumed a low salt diet and elevate your legs when you are seated in a chair. Sitting with your legs down increases the swelling in your legs. You can also wear compression stockings and these should be applied the first thing in the morning when you get out of bed and not removed until you get into bed at night. You will also be taking a water pill to help get rid of excess fluid. I have given you some literature to read about how to treat venous insufficiency. Eating too much slat makes your body retain fluid. We did ultra sounds of the veins in the legs to make sure you do not have blood clots contributing to the swelling and there are no blood clots in your legs. You have not been on Xarelto while on rehab because you had bleeding in your head from the fall. You should not restart this medication until the neurosurgeon tells you that it is OK........they will likely want to do a repeat CT scan of the head/brain before restarting anticoagulation. Sometimes when a patient falls regularly and they have had bleeding in the brain/head the anticoagulation does not get restarted because the risk for bleeding is too great. 6. You have some mild chronic kidney disease. Because of this we discontinued Famotidine because it can build up in people with kidney disease. We have substituted a drug called Protonix (also called pantoprazole) to treat your heartburn/reflux. We are giving you this medication twice a day and since we increased it to twice a day you are no longer having heartburn or nausea. 7. I am giving you a prescription for #1 Butrans patch and #21 Percocet. This will get you through next week so you can follow up with Dr. Hall the next week........you are going to be busy with other appts next week. 8. If you have any questions after you leave rehab or you are out of a medication I did not give you a prescription for please do not hesitate to call me. OFFICE: [phone] CELL: [phone] NURSES STATION ON REHAB: [phone] Discharge Orders/Prescriptions Prescriptions: New alendronate 70 mg Tablet 70 mg PO Q7D@0700 Qty: 4 0RF pantoprazole 20 mg Tablet,Delayed Release (Dr/Ec) 20 mg PO BID Qty: 60 0RF spironolactone 25 mg Tablet 12.5 mg PO DAILY Qty: 30 0RF furosemide [Lasix] 40 mg tablet 40 mg PO DAILY Qty: 30 0RF buprenorphine 10 mcg/hour patch weekly 1 patch transdermal Q7D 30 Days Qty: 4 0RF potassium chloride 10 mEq capsule, extended release 10 meq PO DAILY Qty: 30 0RF cholecalciferol (vitamin D3) 50 mcg (2,000 unit) capsule 50 mcg PO BID Qty: 60 0RF Continued atenolol 25 mg tablet 25 mg PO DAILY folic acid 1 mg tablet 1 mg PO DAILY albuterol sulfate 90 mcg/actuation HFA aerosol inhaler 2 puff inhalation Q6H PRN (Reason: dyspnea) tiotropium bromide [Spiriva with HandiHaler] 18 mcg capsule, w/inhalation device 1 cap inhalation DAILY PRN (Reason: shortness of breath ) baclofen 5 mg tablet 5 mg PO QHS gabapentin 100 mg capsule 100 mg PO Q12H Jardiance 10 mg tablet 10 mg PO DAILY melatonin 3 mg capsule 3 mg PO QHS Dulera 100-5 mcg/actuation HFA aerosol inhaler 2 inh inhalation BID (DME) OXYGEN - Supplemental ([facility] INFORMATIONAL USE ONLY) Gas See Rx Instructions .ROUTE Patient Comments: 2L HS Rx Instructions: As directed Skyrizi 150 mg/mL pen injector 150 mg SUBCUT Q90D Patient Comments: [NO ORIGINAL SIG] Changed oxycodone-acetaminophen 5-325 mg tablet 1 tab PO TID PRN (Reason: pain 4-10) 7 Days Qty: 21 0RF Discontinued famotidine 20 mg tablet 20 mg PO DAILY Xarelto 20 mg tablet 20 mg PO DAILY cholecalciferol (vitamin D3) 50 mcg (2,000 unit) capsule 50 mcg PO DAILY acetaminophen 500 mg tablet 1,000 mg PO Q8 enoxaparin [Lovenox] 30 mg/0.3 mL syringe 30 mg subcut Q12H furosemide [Lasix] 20 mg tablet 20 mg PO DAILY PRN (Reason: weight gain) ipratropium bromide 0.02 % solution 1.25 ml inhalation Q6H PRN (Reason: wheezing) ipratropium-albuterol 0.5 mg-3 mg(2.5 mg base)/3 mL solution for nebulization 3 ml inhalation Q2H PRN (Reason: shortness of breath or wheezing) Rx Instructions: until breathing returns to target peak flow/parameters ondansetron 4 mg tablet,disintegrating 8 mg PO Q8H PRN (Reason: nausea and vomiting) Rx Instructions: 1st dose 1-2 hr before radiation oxycodone 5 mg Tablet 5 mg PO Q4H PRN (Reason: Pain Score1-10) buprenorphine [Butrans] 5 mcg/hour patch weekly 1 patch transdermal Q7D lidocaine 5 % Adhesive Patch,Medicated 2 patch topical DAILY Qty: 60 0RF Protocol: *Topical Application Instructions APPLICATION INSTRUCTIONS: Apply to painful areas of low back. Rx Instructions: Apply to area of low back pain-change daily Other Ambulatory Orders: Basic Metabolic Profile (BMP) (Routine) Timeframe: 1 Week Facility: [facility] - Location: Laboratory Ordered By: Dr. Kaylee Son Referrals / Follow Up: Anuj Ramos [Other, Neurology] - 05/21/25 3:15 pm Referral Note: Daniel Hall MD [Med Staff - Active Staff, Pain Management] - 05/22/25 2:30 pm Yumiko Michel MD [Primary Care Provider, Medical] - 05/20/25 2:00 pm Kendell Liang MD [Med Staff - Courtesy Staff, Endocrinology] Referral Note: referral sent office will call to make appointment [facility]Non-Staff, [facility] Care] - 05/19/25 2:00 pm Referral Note: Dr Plasencia Disposition Disposition (needs filled in before D/C Order can be placed): Home Health Service Charges/Coding Visit Charges Inpatient E&M: 42438 Disch Hosp >30min
[2025-05-15 18:00] VITALS: BP 122/68; PULSE 72; RESP 17; TEMP 37.1; O2SAT 96
[2025-05-15 20:15] VITALS: BP 125/70
[2025-05-15] MEDS: MELATONIN 3 MG TABLET PO (20:15)
[2025-05-16 06:05] VITALS: BP 135/79; PULSE 68; RESP 16; TEMP 36.3; O2SAT 96
[2025-05-16] MEDS: Arthritis Pain Compound 60 CLICK TUBE TOPICAL ×2 (06:13→13:05)
[2025-05-16] MEDS: Umeclidinium Bromide Inhaler 1 PUFF INHALATION (06:13)
[2025-05-16 06:52] VITALS: PULSE 78; RESP 16; O2SAT 99
[2025-05-16] MEDS: Albuterol 2.5 MG/3 ML VIAL.NEB. INHALATION ×2 (06:52→12:55)
[2025-05-16] MEDS: Fluticasone/Salmeterol 232-14 Inhaler 1 PUFF INHALATION (08:29)
[2025-05-16] MEDS: Senna/Docusate Sodium 1 Tablet 2 TABLET PO (08:30)
[2025-05-16] MEDS: Cholecalciferol (VIT D3) 25 MCG TABLET (1,000 UNITS) 50 MCG PO (08:30)
[2025-05-16] MEDS: Potassium Chloride Oral Tablet 20 MEQ PO (08:35)
[2025-05-16 09:00] VITALS: PULSE 67; RESP 18; O2SAT 96
[2025-05-16 09:13] VITALS: BMI 27.6
[2025-05-16 12:55] VITALS: PULSE 90; RESP 14
[2025-05-16 13:30] VITALS: BP 114/50; PULSE 76; RESP 17; TEMP 36.9; O2SAT 93
== END 2025-05-16 13:10 | disposition home health service (06) | DRG 488 ==
PROVIDERS: Admitting Provider Internal Medicine; PCP Family Medicine; Visit Provider Internal Medicine
DX: M80.0AXD Age-related osteoporosis with current pathological fracture, other site, subsequent encounter for fracture with routine healing (principal); L03.115 Cellulitis of right lower limb; I50.32 Chronic diastolic (congestive) heart failure; Z16.29 Resistance to other single specified antibiotic; Z16.24 Resistance to multiple antibiotics; I27.20 Pulmonary hypertension, unspecified; I11.0 Hypertensive heart disease with heart failure; J44.9 Chronic obstructive pulmonary disease, unspecified; L40.50 Arthropathic psoriasis, unspecified; I48.0 Paroxysmal atrial fibrillation; I87.2 Venous insufficiency (chronic) (peripheral); G47.33 Obstructive sleep apnea (adult) (pediatric); K21.9 Gastro-esophageal reflux disease without esophagitis; W19.XXXD Unspecified fall, subsequent encounter; B95.7 Other staphylococcus as the cause of diseases classified elsewhere; S06.5XAD Traumatic subdural hemorrhage with loss of consciousness status unknown, subsequent encounter; S80.01XD Contusion of right knee, subsequent encounter; M80.08XG Age-related osteoporosis with current pathological fracture, vertebra(e), subsequent encounter for fracture with delayed healing; R91.1 Solitary pulmonary nodule; Z79.01 Long term (current) use of anticoagulants; G89.4 Chronic pain syndrome; Z87.891 Personal history of nicotine dependence; Z23 Encounter for immunization; Z79.891 Long term (current) use of opiate analgesic; Z79.899 Other long term (current) drug therapy; S00.83XD Contusion of other part of head, subsequent encounter
CPT/HCPCS: 36415; 36600; 71046; 80048; 80076; 82306; 82803; 83036; 83735; 83880; 84100; 85025; 85027; 87070; 87075; 87077; 87186; 87205; 92507; 92523; 93970; 94640; 94668; 94762; 97110; 97116; 97129; 97130; 97162; 97167; 97530; 97535; 97802; 97803; A4216; J1938

== ENCOUNTER 2025-05-19 14:02 | Outpatient (RCR) | payer MEDICARE, SELFPAY ==
[2025-05-19 14:19] VITALS: BP 149/93; PULSE 89; RESP 16; TEMP 36.7
--- NOTE | 2025-05-21 07:53 | PCM.WC.PN ---
History of Present Illness Date of Service: 05/19/25 Chief Complaint: HPI Narrative: LESLI ROSALES, is a 85 F with PMH significant for osteoporosis, atrial fibrillation on Xarelto, CHF, COPD, chronic pain syndrome who had a dizzy episode at home and fell forward with outstretched hand and hit the side of her head on the coffee table on 04/22/25. Work up demonstrated 6mm SDH, she was reversed with Kcentra and Xarelto held. She was also noted to have multiple rib fractures, new vs chronic spine fractures. She was also noted to have right knee swelling, bruising and eschar. She complains mostly of left shoulder pain which was negative for acute bony injuries. Right knee xray was negative for bony injuries as well. Left hand xray showed possible nondisplaced fracture however orthopedics at the outside facility assessed and did not think she had one plus she does not endorse any left hand/wrist pain. Since her arrival to our rehab facility she has been ambulating with walker without major significant pain with walking on it. She denies fever, chills, drainage, numbness, tingling. She does not have history or right knee surgeries. Subjective Subjective Current encounter, 21 May 2025: Patient underwent I&D in the rehab facility and subsequent wound care. Presents today for follow-up of the right knee hematoma I&D. She has been doing well with no fevers chills or drainage and endorses good dressing changes Objective Data Objective Data Vital Signs: Vital Signs Temp Pulse Resp BP 98.0 F 89 16 149/93 H 05/19/25 14:19 05/19/25 14:19 05/19/25 14:19 05/19/25 14:19 Charges/Coding Procedures Integumentary [id number]: [id number] Velma subq tissue 20 sq cm/< Physical Exam Narrative Right knee examined No surrounding induration or fluid collections Hematoma has been evacuated with dressing changes There is beefy red granulation tissue at the base and the wound measures 2 x 1 cm and is 0.2 cm deep Motor: She is able to walk bend and extend her knee without any issues Debridement Note Debridement Note Wound debrided: Right anterior knee wound Laterality: Right Wound Grade/Stage: Stage III, superficial just through the skin Type of Debridement: Excisional debridement Anesthesia Used: 4% Lidocaine Solution Depth: Down to and including healthy tissue Percentage of wound debrided: 100 Instrument Used: 5mm curette Tissue Removed: Fibrinous exudate and necrotic biofilm Severity: Fat Layer Exposed Amount of bleeding with debridement: Mild Bleeding Controlled with: Pressure Patient tolerated procedure: Patient tolerated procedure well Assessment/Plan Assessment/Plan (1) Ulcer of right leg: CODE(S): L97.919 - Non-pressure chronic ulcer of unspecified part of right lower leg with unspecified severity PLAN: Continue twice daily dressing changes with wet-to-dry dressings Should heal in well over the next couple weeks Follow-up with me next month
--- NOTE | 2025-05-21 14:42 | WC ---
PHOTO-RIGHT KNEE 05/19/25
== END 2025-05-20 23:59 | disposition home or self-care (01) ==
LOC: WC 14:02
PROVIDERS: PCP Family Medicine; Referring Provider Internal Medicine; Visit Provider Surgery Plastic and Reconstructive Surgery
DX: L97.812 Non-pressure chronic ulcer of other part of right lower leg with fat layer exposed (principal)
CPT/HCPCS: 11042; 99213; G0463

== ENCOUNTER 2025-06-16 14:00 | Outpatient (RCR) | payer MEDICARE, SELFPAY ==
[2025-05-26 14:24] VITALS: BP 148/89; PULSE 66; RESP 16; TEMP 36.6
--- NOTE | 2025-05-26 15:03 | PCM.WC.PN ---
History of Present Illness Date of Service: 05/26/25 Chief Complaint: HPI Narrative: LESLI ROSALES, is a 85 F with PMH significant for osteoporosis, atrial fibrillation on Xarelto, CHF, COPD, chronic pain syndrome who had a dizzy episode at home and fell forward with outstretched hand and hit the side of her head on the coffee table on 04/22/25. Work up demonstrated 6mm SDH, she was reversed with Kcentra and Xarelto held. She was also noted to have multiple rib fractures, new vs chronic spine fractures. She was also noted to have right knee swelling, bruising and eschar. She complains mostly of left shoulder pain which was negative for acute bony injuries. Right knee xray was negative for bony injuries as well. Left hand xray showed possible nondisplaced fracture however orthopedics at the outside facility assessed and did not think she had one plus she does not endorse any left hand/wrist pain. Since her arrival to our rehab facility she has been ambulating with walker without major significant pain with walking on it. She denies fever, chills, drainage, numbness, tingling. She does not have history or right knee surgeries. Subjective Subjective 20 May 2025: Patient underwent I&D in the rehab facility and subsequent wound care. Presents today for follow-up of the right knee hematoma I&D. She has been doing well with no fevers chills or drainage and endorses good dressing changes Current encounter, 26 May 2025: Doing well overall. Healing well with dressing changes, no fevers, chills or drainage. Objective Data Objective Data Vital Signs: Vital Signs Temp Pulse Resp BP O2 Del Method 97.9 F 66 16 148/89 H Room Air 05/26/25 14:24 05/26/25 14:24 05/26/25 14:24 05/26/25 14:24 05/26/25 14:24 Oxygen Delivery Method Room Air Charges/Coding Visit Charges Office Visits / Consults: [id number] OV L2 Est 10min Physical Exam Narrative Right knee examined No surrounding induration or fluid collections Hematoma has been evacuated with dressing changes There is beefy red granulation tissue at the base and the wound measures 1 x 0.3 cm and is 0.2 cm deep Motor: She is able to walk bend and extend her knee without any issues Debridement Note Debridement Note No debridement was completed: No debridement was completed today Post-Debridement Measurements and Additional Note: Post-Debridement Measurements/Treatment AJIT - Nurse 1 - General Ulcer Assessment Start: 05/26/25 14:24 Freq: Status: Active Protocol: ZHENG Activity Type Activity Date Activity User E-sign Co-sign Detail Recorded Client Recorded Date Recorded By Document 05/26/25 14:24 [id number] 05/26/25 14:31 05/26/25 14:24 - Today's Visit Information Type of service 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 Any new allergies or adverse reactions No Had a fall/change in ADL's that may No increase risk of falls Signs or symptoms of abuse and/or No neglect since last visit Have you been in the hospital since your No last visit? Has dressing in place as prescribed Yes Has compression in place as prescribed Yes Has offloadiing in place as prescribed N/A Experienced any changes in pain level or No management Left Footwear Regular Shoe Right Footwear Regular Shoe Pain Scale: 0-10 Numeric Is Patient Pain Free? Yes Page Nurse 1 - General Ulcer Measurement Start: 05/26/25 14:24 Freq: Status: Active Protocol: Activity Type Activity Date Activity User E-sign Co-sign Detail Recorded Client Recorded Date Recorded By Document 05/26/25 14:24 [id number] 05/26/25 14:31 05/26/25 14:24 Wound Center Nurse 1 #1 RIGHT KNEE -Current Size (cm) - Length 0.3 -Current Size (cm) - Width 1.2 -Current Size (cm) - Depth 0.2 -Total Square Cm 0.36 -Date of Last Picture (Recall this 05/26/25 field) -Photo Taken Yes -Epithelialization Small 1-33% -Tunneling No -Undermining/Tunneling No -Circular Undermining No -Exudate Amt Small -Exudate Type Yellow/Green -Wound Margin Distinct, Outline Attached -Granulation Amt Medium (34-66%) -Granulation Quality Red -Slough/Fibrin Yes -Necrosis Amt Small (1-33%) -Necrotic Tissue Type Adherent Slough -Texture (Safia-wound Skin Appearance) Assessed -Moisture (Safia-wound Skin Appearance) Assessed -Color (Safia-wound Skin Appearance) Assessed -Temperature (Safia-wound Skin No Abnormality Appearance) (Pt Warm) -Tenderness on Palpation (Safia-wound No Skin Appearance) -Ulcer Cleansing Rinsed/ Irrigated with Saline -Foul Odor after Cleansing No -Anesthetic Used 5% Lidocaine Gel WC - Nurse 2 - General Ulcer CM Notes Start: 05/26/25 14:24 Freq: Status: Active Protocol: Activity Type Activity Date Activity User E-sign Co-sign Detail Recorded Client Recorded Date Recorded By Document 05/26/25 14:52 [id number] 05/26/25 14:53 DS 05/26/25 14:52 Wound Center Nurse 2 -Time 14:52 -Correct Patient Yes -Correct Side, Site, Position Yes -Procedure Performed No -Post Debridement (cm) - Length 1.0 -Post Debridement (cm) - Width 0.3 -Post Debridement (cm) - Depth 0.1 -Total Square (Post) (cm) 0.30 -Area of Debridement (cm) - Length 1.0 -Area of Debridement (cm) - Width 0.3 -Total Square (Area) (cm) 0.30 -Tunneling No -Undermining/Tunneling No -Circular Undermining No -Wound/Ulcer Outcome Not Healed Pain Scale: 0-10 Numeric Is Patient Pain Free? Yes Assessment/Plan Assessment/Plan (1) Ulcer of right leg: CODE(S): L97.919 - Non-pressure chronic ulcer of unspecified part of right lower leg with unspecified severity PLAN: Hydrogel daily dressings to the right knee Patient happy with the plan F/u in 3 weeks
--- NOTE | 2025-05-27 11:19 | WC ---
PHOTO-RIGHT KNEE 05/26/25
[2025-06-16 14:26] VITALS: BP 151/89; PULSE 73; RESP 18; TEMP 36.8
--- NOTE | 2025-06-16 16:24 | PCM.WC.PN ---
History of Present Illness Date of Service: 06/16/25 Chief Complaint: HPI Narrative: LESLI ROSALES, is a 85 F with PMH significant for osteoporosis, atrial fibrillation on Xarelto, CHF, COPD, chronic pain syndrome who had a dizzy episode at home and fell forward with outstretched hand and hit the side of her head on the coffee table on 04/22/25. Work up demonstrated 6mm SDH, she was reversed with Kcentra and Xarelto held. She was also noted to have multiple rib fractures, new vs chronic spine fractures. She was also noted to have right knee swelling, bruising and eschar. She complains mostly of left shoulder pain which was negative for acute bony injuries. Right knee xray was negative for bony injuries as well. Left hand xray showed possible nondisplaced fracture however orthopedics at the outside facility assessed and did not think she had one plus she does not endorse any left hand/wrist pain. Since her arrival to our rehab facility she has been ambulating with walker without major significant pain with walking on it. She denies fever, chills, drainage, numbness, tingling. She does not have history or right knee surgeries. Subjective Subjective 20 May 2025: Patient underwent I&D in the rehab facility and subsequent wound care. Presents today for follow-up of the right knee hematoma I&D. She has been doing well with no fevers chills or drainage and endorses good dressing changes 26 May 2025: Doing well overall. Healing well with dressing changes, no fevers, chills or drainage. Current encounter, 16 Jun 2025: Doing well overall and is now healed Objective Data Objective Data Vital Signs: Vital Signs Temp Pulse Resp BP O2 Del Method 98.3 F 73 18 151/89 H Room Air 06/16/25 14:26 06/16/25 14:26 06/16/25 14:26 06/16/25 14:26 05/26/25 14:24 Oxygen Delivery Method Room Air Charges/Coding Visit Charges Office Visits / Consults: [id number] OV L2 Est 10min Physical Exam Narrative Right knee is healed Assessment/Plan Assessment/Plan (1) Ulcer of right leg: CODE(S): L97.919 - Non-pressure chronic ulcer of unspecified part of right lower leg with unspecified severity PLAN: Healed Follow-up as needed
--- NOTE | 2025-06-17 10:35 | WC ---
PHOTO-RIGHT KNEE 06/16/25
== END 2025-06-16 15:51 | disposition home or self-care (01) ==
LOC: WC 14:00
PROVIDERS: PCP Family Medicine; Referring Provider Internal Medicine; Visit Provider Surgery Plastic and Reconstructive Surgery
DX: L97.919 Non-pressure chronic ulcer of unspecified part of right lower leg with unspecified severity (principal)
CPT/HCPCS: 99212; 99213; G0463

== ENCOUNTER → 2025-06-29 | Outpatient (CLI) | payer MEDICARE, SELFPAY | END | disposition home or self-care (01) | LOC: LABSPEC 06-30 08:01 | PROVIDERS: PCP Family Medicine; Visit Provider Nurse Practitioner Family | DX: R35.0 Frequency of micturition (principal) | CPT/HCPCS: 87077; 87086; 87088; 87186 ==

== ENCOUNTER 2025-07-02 15:27 | Emergency (ER) | payer MEDICARE, MEDICAID, SELFPAY ==
[2025-07-02 15:28] VITALS: BP 130/75; PULSE 80; RESP 14; TEMP 36.6; O2SAT 90
--- NOTE | 2025-07-02 18:00 | RAD_ITS ---
PROCEDURE: LEFT HIP, UNI W/ PELVIS 2-3 VIEWS 07/02/2025 REASON FOR EXAM: PAIN TECHNIQUE: Procedure Code: RAD Modality: DX Procedure: HIP, UNI W/ PELVIS 2-3 VIEWS Laterality: Left COMPARISON: None. FINDINGS: No evidence of acute fracture or dislocation. Alignment is anatomic. Bilateral hip joints are intact with mild degenerative arthrosis. Degenerative changes of the lower lumbosacral spine. Qualitative osteopenia. RAD/HIP, UNI W/ Pelvis 2-3 Views IMPRESSION: No evidence of acute fracture or dislocation. Reading Location: [id number]
--- NOTE | 2025-07-02 21:46 | CT_ITS ---
PROCEDURE: CT EXTREMITY LOWER WITHOUT CONTRAST 07/02/2025 REASON FOR EXAM: PAIN TECHNIQUE: Procedure Code: CTELWO Modality: CT Procedure: EXTREMITY LOWER WITHOUT CONTRA CT left hip without contrast. Coronal and Sagittal reconstructions were provided. One or more dose reduction techniques were used (e.g., Automated exposure control, adjustment of the mA and/or kV according to patient size, use of iterative reconstruction technique). RADIATION DOSE SUMMARY: CTDlvol: 18.29 mGy DLP: 763.01 mGycm COMPARISON: Radiographs earlier same day. FINDINGS: No acute fracture or dislocation. Left hip joint is intact with mild-moderate degenerative arthrosis characterized by joint space narrowing, subchondral sclerosis and small cyst formations, and marginal osteophytosis. No aggressive osseous lytic or blastic lesion. Degenerative changes of the lower lumbosacral spine, with chronic degenerative grade 2 anterolisthesis of L5 on S1 by approximately 9 mm, resulting in mild-moderate bilateral neural foraminal narrowing at L5-S1. CT/Extremity Lower without Contra IMPRESSION: No acute fracture or dislocation. Mild-moderate left hip arthrosis. Reading Location: [id number]
--- NOTE | 2025-07-02 21:47 | ED.VIS.LOWEX ---
HPI History of Present Illness Chief Complaint: Lower Extremity Injury Narrative Narrative: 85-year-old female past medical history of brittle bone disease/osteopenia, previous subdural hematoma, rib fractures, and chronic back pain presents with 3 days of left hip pain. She relates history that back in April she had a fall, and had an intracranial hemorrhage/subdural hematoma. She was sent to an outside facility, then returned to the [facility], where she spent 3 to 4 weeks. She states that cleared. She denies any recent trauma to her left hip but over the last 3 days has had increasing pain. Pain is worse with movement. She was having difficulty ambulating. She also had pain with weightbearing. She does see Dr. Hall for chronic pain management. She states she takes 3 Percocets a day. [facility] Medical History Hypoxemia associated with sleep Pulmonary nodule 1 cm or greater in diameter Fall Exercise hypoxemia Vertebral compression fracture Mild cognitive impairment of uncertain or unknown etiology Venous insufficiency Pulmonary hypertension Chronic anticoagulation Paroxysmal atrial fibrillation Vitamin D deficiency Fracture of humerus, proximal, right, closed COPD exacerbation Acute cystitis without hematuria Osteoporosis Arthritis of left hip Compression fracture of L3 vertebra Osteopenia determined by x-ray Burst fracture of lumbar vertebra Compression fracture of L2 Abnormal finding on urinalysis Intractable back pain Leukocytosis Acute cystitis with hematuria Overweight (BMI 25.0-29.9) Ambulatory dysfunction Generalized weakness Unable to care for self Inability to perform activities of daily living Closed compression fracture of lumbosacral spine Back pain Anxiety Depression Chronic pain GERD (gastroesophageal reflux disease) On home oxygen therapy Atrial fibrillation Congestive heart failure (CHF) Hypertension Psoriatic arthritis COPD (chronic obstructive pulmonary disease) A-fib Home Medications Medication Instructions Recorded Last Taken Type atenolol 25 mg tablet 25 mg PO DAILY Atrial fibrillation 06/26/21 12/30/24 History folic acid 1 mg tablet 1 mg PO DAILY supplement 06/26/21 12/24/24 History albuterol sulfate 90 mcg/actuation 2 puff inhalation Q6H PRN dyspnea 11/18/24 Unknown History aerosol inhaler tiotropium bromide 18 mcg capsule 1 cap inhalation DAILY PRN 11/18/24 12/24/24 History with inhalation device (Spiriva shortness of breath with HandiHaler) risankizumab-rzaa 150 mg/mL 150 mg subcut Q90D . 12/24/24 12/18/24 History subcutaneous pen injector (Skyrcecilyi) baclofen 5 mg tablet 5 mg PO QHS pain 04/22/25 04/28/25 History empagliflozin 10 mg tablet 10 mg PO DAILY glucose 04/29/25 Unknown History (Jardiance) gabapentin 100 mg capsule 100 mg PO Q12H nerve pain 04/29/25 04/29/25 History melatonin 3 mg capsule 3 mg PO QHS sleep 04/29/25 Unknown History mometasone-formoterol HFA 100 2 inh inhalation BID sob 04/29/25 Unknown History mcg-5 mcg/actuation aerosol inhaler (Dulera) OXYGEN - Supplemental ([facility] 05/01/25 Unknown History INFORMATIONAL USE ONLY) alendronate 70 mg tablet 70 mg PO Q7D@0700 #4 tabs 05/15/25 Unknown Rx buprenorphine 10 mcg/hour weekly 1 patch transdermal Q7D 1 month #4 05/15/25 Unknown Rx transdermal patch ea furosemide 40 mg tablet (Lasix) 40 mg PO DAILY #30 tabs 05/15/25 Unknown Rx oxycodone-acetaminophen 5 mg-325 1 tab PO TID PRN pain 4-10 1 week 05/15/25 Unknown Rx mg tablet #21 tabs pantoprazole 20 mg tablet,delayed 20 mg PO BID #60 tabs 05/15/25 Unknown Rx release spironolactone 25 mg tablet 12.5 mg (1/2 x 25 mg) PO DAILY #30 05/15/25 Unknown Rx tabs cholecalciferol (vitamin D3) 50 50 mcg PO BID #60 caps 05/16/25 Unknown Rx mcg (2,000 unit) capsule potassium chloride 10 mEq 10 meq PO DAILY #30 caps 05/16/25 Unknown Rx capsule,extended release nitrofurantoin 100 mg PO Q12H 7 days #14 caps 06/29/25 Unknown Rx monohydrate/macrocrystals 100 mg capsule (Macrobid) Allergy/AdvReac Type Severity Reaction Status Date / Time No Known Allergies Allergy Verified 07/02/25 15:28 Surgical History Status post kyphoplasty History of partial hysterectomy History of bladder suspension procedure History of appendectomy History of cholecystectomy H/O hernia repair Social History household members: children and none housing: house Smoking Status: Former smoker substance use type: does not use ROS ROS ED ROS Narrative Review of systems positive for left posterior hip pain. No recent falls. No fevers or chills. Pain worse with walking and weightbearing, relieved by nothing. EXAM Physical Exam Narrative Exam Narrative: GCS 15. ABCs are intact. Cardiovascular semination regular rate and rhythm. Lungs clear to auscultation bilaterally. Abdomen is soft and nontender without guarding or rebound. Positive bowel sounds. Mild tenderness to palpation in the left hip and sacroiliac area. No crepitance. Neurovascularly intact distally with palpable dorsalis pedis pulse. Flexion and extension left hip intact. Const Vital Signs: 07/02/25 15:28 07/02/25 21:56 07/02/25 21:59 Temperature 98 F Temperature Source Oral Pulse Rate 80 74 Respiratory Rate 14 18 Blood Pressure 130/75 H 153/93 H Blood Pressure Mean 93 113 Pulse Ox 90 91 Oxygen Delivery Method Room Air MDM MDM MDM Narrative Medical decision making narrative: Differential diagnosis includes but not limited to degenerative joint disease/osteoarthritis of left hip versus fracture. X-rays were obtained per protocol and interpreted by myself independently as no evidence of acute fracture or dislocation. I reviewed the radiology report which confirms my independent interpretation. Patient was given 5 mg of oxycodone here. I had lengthy discussion with the patient. She is still having continued pain over the last 3 days. In order to rule out occult fracture, CT of the left hip will be obtained. I reviewed the radiology report of the CT of the left hip, and there is no evidence of an acute fracture or dislocation. She does have mild to moderate left hip arthrosis. At this point in time, I had a discussion with the patient regarding admission/observation for PT/OT eval and possible rehabilitation/[facility] facility placement. She declines and prefers to go home. She will continue her Percocet that she takes for her chronic pain and follow-up with pain management. Additionally she states that she has a walker at home that she has been using. She would like discharge. Return instructions to the emergency department were reviewed. Disposition is discharged home in stable condition. History & Record Review Discussion w/independent historian: Patient Radiography Diagnostic Testing: Clinical Impression(s) from Imaging Studies Hip/Pelvis X-Ray 07/02/25 18:00 IMPRESSION: No evidence of acute fracture or dislocation. Reading Location: [facility] Lower Extremity CT 07/02/25 21:46 IMPRESSION: No acute fracture or dislocation. Mild-moderate left hip arthrosis. Reading Location: [facility] Discharge Plan Triage Chief Complaint: Lower Extremity Injury ED Provider: Oskar Camargo Dx/Rx/DC Orders Clinical Impression: Arthritis of left hip, Hip pain, left Instructions: ED Arthralgia, ED Osteoarthritis Prescriptions: No Action nitrofurantoin monohyd/m-cryst [Macrobid] 100 mg capsule 100 mg PO Q12H 7 Days Qty: 14 0RF Rx Instructions: must administer with a meal/food atenolol 25 mg tablet 25 mg PO DAILY folic acid 1 mg tablet 1 mg PO DAILY albuterol sulfate 90 mcg/actuation HFA aerosol inhaler 2 puff inhalation Q6H PRN (Reason: dyspnea) tiotropium bromide [Spiriva with HandiHaler] 18 mcg capsule, w/inhalation device 1 cap inhalation DAILY PRN (Reason: shortness of breath ) baclofen 5 mg tablet 5 mg PO QHS gabapentin 100 mg capsule 100 mg PO Q12H Jardiance 10 mg tablet 10 mg PO DAILY melatonin 3 mg capsule 3 mg PO QHS Dulera 100-5 mcg/actuation HFA aerosol inhaler 2 inh inhalation BID (DME) OXYGEN - Supplemental ([facility] INFORMATIONAL USE ONLY) Gas See Rx Instructions .Route Patient Comments: 2L HS Rx Instructions: As directed alendronate 70 mg Tablet 70 mg PO Q7D@0700 Qty: 4 0RF pantoprazole 20 mg Tablet,Delayed Release (Dr/Ec) 20 mg PO BID Qty: 60 0RF spironolactone 25 mg Tablet 12.5 mg PO DAILY Qty: 30 0RF furosemide [Lasix] 40 mg tablet 40 mg PO DAILY Qty: 30 0RF oxycodone-acetaminophen 5-325 mg tablet 1 tab PO TID PRN (Reason: pain 4-10) 7 Days Qty: 21 0RF buprenorphine 10 mcg/hour patch weekly 1 patch transdermal Q7D 30 Days Qty: 4 0RF potassium chloride 10 mEq capsule, extended release 10 meq PO DAILY Qty: 30 0RF cholecalciferol (vitamin D3) 50 mcg (2,000 unit) capsule 50 mcg PO BID Qty: 60 0RF Skyrizi 150 mg/mL pen injector 150 mg SUBCUT Q90D Patient Comments: [NO ORIGINAL SIG] Primary Care Provider: Yumiko Michel Referrals: Yumiko Michel MD [Primary Care Provider, Medical] Activity Restrictions/Additional Instructions: Continue your Percocet 3 times a day as directed by pain management. Follow-up with pain management and/or your primary care provider. Use your walker to help ambulate. Print Language: Slovak Disposition Disposition: Home, Self Care
[2025-07-02 21:56] VITALS: PULSE 74; RESP 18; O2SAT 91
[2025-07-02 21:59] VITALS: BP 153/93
--- OUTSIDE RECORDS SUMMARY | 2025-07-02 22:12 | XMS RPT_ITS | CCD ---
Author Organization [facility] Care Team Providers Care Insights Strategist Name Role Phone Nieves Oh Unavailable Unavailable Altagracia, Nieves Unavailable Unavailable Altagracia, Nieves Unavailable Unavailable Anuj Garcia Unavailable Unavailable Altagracia, Nieves Unavailable Unavailable Altagracia, Nieves Unavailable Unavailable Janice Narayan Unavailable Unavailable Altagracia, Nieves Unavailable Unavailable Altagracia, Nieves Unavailable Unavailable Nieves Frias Primary Care Provider Nieves Frias Primary Care Provider Nieves Frias MD Primary Care Provider Nieves Frias MD Primary Care Provider DR NIEVES FRIAS MD Primary Care Physician Nieves Frias MD Primary Care Provider Nieves Frias Primary Care Provider Giselle Elizondo MD Primary Care Provider Giselle Elizondo MD Primary Care Provider Giselle Elizondo Primary Care Provider Giselle Elizondo Primary Care Provider Giselle Elizondo MD Primary Care Provider Giselle Elizondo Primary Care Provider Lexi Merino MD Primary Care Provider Derrick SHUTTLE DRIVER.RN HEMODIALYSIS, Ana Unavailable GISELLE ELIZONDO Referring Unavailable GISELLE ELIZONDO Primary Care Unavailable KONTAK, GISELLE R Primary Care Unavailable KONTAK, GISELLE R Referring Unavailable CHONDANIA Yanely Attending Unavailable MARTY GUTHRIE Primary Care Unavailable KONTAK, GISELLE R Referring Unavailable KONTAK, GISELLE R Primary Care Unavailable KONTAK, GISELLE R Primary Care Unavailable KEELY GIVENS Referring Unavailable KONTAK, GISELLE R Primary Care Unavailable GUTHRIENISA MORENO Primary Care Provider Donald POLANCO, Dr. Ferro Attending Provider [phone] Donald POLANCO, Dr. Ferro Referring Provider [phone] Keila PAULSON, Dr. Cobb Emergency Provider Conor [...] Provider Yariel POLANCO, Dr. Samaniego Other Provider Farideh POLANCO, Dr. Goodrich Other Provider Brandy POLANCO, Dr. Zarate Other Provider [phone] Angelina POLANCO, Dr. East Other Provider Dr. Clayton Baig MD Other Provider [phone] Harinder POLANCO, Dr. Lynn Other Provider [phone] Lorna Salvador MD Other Provider Janae POLANCO, Dr. Maria Other Provider Unavailabl serg Sadler MD, Dr. Sprague Other Provider [phone] [place] POLANCO, Dr. Branch Other Provider Ky POLANCO, Dr. Berry Other Provider Isabella POLANCO, Dr. Araya Other Provider Erika PAULSON, Dr. Garcia Other Provider Ashley POLANCO, Dr. Li Other Provider [phone] Diane POLANCO, Dr. Solis Other Provider [phone] Tony PAULSON, Dr. Davila Other Provider Donta POLANCO, Dr. Samson Other Provider [phone] Floyd POLANCO, Dr. Lee Other Provider Travis POLANCO, Dr. Brown Other Provider Unavailable Dr. Gato Givens DO Attending Provider Rayne POLANCO, Dr. Cardona Attending Provider [place] POLANCO, Marty Primary Care Provider Marty Guthrie MD Primary Care Provider Dr. Kevin Robles MD Referring Provider Unavaila karen Camargo MD, Oskar Emergency Provider [phone] Kevin Caballero DO Admit Provider Unavail able Dr. Kevin Caballero DO Attending Provider Unav ailable Goldy Warren Unavailable Marty Guthrie MD Unavailable NISA GUTHRIE Primary Care Provider Dr. Kevin Caballero DO Other Provider Unavail able Dr. Mike Malagon MD Other Provider Dr. Goldy Warren DO Attending Provider Dr. Sveta Macias DO Other Provider Dr. Sveta Macias DO Attending Provider Dr. Mike Malagon MD Attending Provider Kenrick LITHOGRAPHING MACHINE OPERATOR-CAmairani Attending Provider Briana PAULSON, Dr. Winslow Other Provider Aleksandra Ortiz Attending Provider NISA GUTHRIE Primary Care Provider Unavailabl e NISA GUTHRIE Referring Provider Unavailable Briana PAULSON, Dr. Winslow Referring Provider [place] POLANCO, Dr. Calderon Primary Care Provider Dr. Lucas Wong DO Emergency Provider Marvin PAULSON, Dr. Zavala Attending Provider [place] POLANCO, Dr. Calderon Referring Provider Lux LITHOGRAPHING MACHINE OPERATOR-C, María Attending Provider Lux LITHOGRAPHING MACHINE OPERATOR-C, María Attending Provider NISA GUTHRIE Primary Care Provider Dr. Reza Pedraza DO Emergency Provider Conor POLANCO, Dr. Chin Admit Provider Conor POLANCO, Dr. Chin Other Provider Travis POLANCO, Dr. Brown Attending Provider Unavaila karen Arias MD, Dr. Paiz Other Provider Isabel POLANCO, Dr. Sanchez Other Provider Constance POLANCO, Dr. Thrasher Other Provider Natacha POLANCO, Dr. Regalado Other Provider Socrates POLANCO, Dr. Farrar Other Provider Dr. Gato Givens DO Other Provider Nandini POLANCO, Dr. Kevin Hernandez Other Provider [phone] Yariel POLANCO, Dr. Samaniego Other Provider Farideh POLANCO, Dr. Goodrich Other Provider Brandy POLANCO, Dr. Zarate Other Provider Angelina POLANCO, Dr. East Other Provider Jovanni POLANCO, Dr. Arnold Other Provider Harinder POLANCO, Dr. Lynn Other Provider Madeleine POLANCO, Dr. Rothman Other Provider Janae POLANCO, Dr. Maria Other Provider Unavailabl serg Sadler MD, Dr. Sprague Other Provider [place] POLANCO, Dr. Branch Other Provider Ky POLANCO, Dr. Berry Other Provider Isabella POLANCO, Dr. Araya Other Provider Erika PAULSON, Dr. Garcia Other Provider Ashley POLANCO, Dr. Li Other Provider [phone] Diane POLANCO, Dr. Solis Other Provider [phone] Tony PAULSON, Dr. Davila Other Provider Donta POLANCO, Dr. Samson Other Provider Floyd POLANCO, Dr. Lee Other Provider Dr. Kevin Robles MD Other Provider Unavailable Dr. Gato Givens DO Attending Provider Dr. Kevin Robles MD Referring Provider Unavaila karen Mclain MD, Dr. Cardona Attending Provider Oskar Camargo MD Emergency Provider Dr. Kevin Caballero DO Admit Provider Unavail able Dr. Kevin Caballero DO Other Provider Unavail able Dr. Mike Malagon MD Other Provider Dr. Goldy Warren DO Attending Provider Dr. Sveta Macias DO Other Provider Dr. Sveta Macias DO Attending Provider Dr. Mike Malagon MD Attending Provider Dr. Goldy Warren DO Referring Provider [phone] Kenrick ROLLINS-C, Amairani Attending Provider Dr. Goldy Warren DO Other Provider Aleksandra Ortiz Attending Provider GUTHRIE, NISA Primary Care Provider Unavailabl e GUTHRIE, NISA Referring Provider Unavailable [place] POLANCO, Dr. Calderon Primary Care Provider Dr. Lucas Wong DO Attending Provider Dr. Lucas Wong DO Emergency Provider Lux ROLLINS-CMaría Attending Provider [place] POLANCO, Dr. Calderon Referring Provider CLEVELAND, NISA Primary Care Provider Isabel POLANCO, Dr. Sanchez Other Provider Rayne POLANCO, Dr. Cardona Attending Provider Mendez PAULSON, Dr. Ledezma Emergency Provider GAGAN VIVAR Attending Unavailable GUTHRIE, MARTY N Referring Unavailable GUTHRIE, MARTY N Primary Care Unavailable KONTAK, GISELLE R Primary Care Unavailable KEELY GIVENS Referring Unavailable KEELY GIVENS Attending Unavailable KONTAK, GISELLE R Primary Care Unavailable KEELY GIVENS Referring Unavailable KONTAK, GISELLE R Primary Care Unavailable ANA MEZA Referring Unavailable KONTAK, GISELLE R Primary Care Unavailable ANA MEZA Attending Unavailable KONTAK, GISELLE R Attending Unavailable KONTAK, GISELLE R Primary Care Unavailable [place] POLANCO, Dr. Calderon Primary Care Physician Dr. Lucas Wong DO Attending Physician Dr. Lucas Wong DO Emergency Department Physi narendra Lux PRESTONCMaría Attending Physician Dr. Mike Malagon MD Attending Physician Dr. Brendan Mclain MD Attending Physician Dr. Brisa Gamble DO Attending Physician Dr. Brisa Gamble DO Emergency Department Physi narendra Sementi DO, Dr. Keerthi Romero Admitting Physici an Sementi DO, Dr. Keerthi Romero Attending Physici an Luis Angel POLANCO, Dr. Santiago Nurse Practitioner Isabel POLANCO, Dr. Sanchez Nurse Practitioner Sementi DO, Dr. Keerthi Romero Nurse Practitione r Perez Yadav Attending Physician Luis Angel POLANCO, Dr. Santiago Attending Physician Sementi DO, Dr. Keerthi Romero Referring Provide r DOMONIQUE GONZALEZ Admitting Unavailable DOMONIQUE GONZALEZ Attending Unavailable BRISA GAMBLE Referring Unavailable GUTHRIE, MARTY Primary Care Unavailable LUCAS MCCAULEY Consulting Unavailable TOPHER CAICEDO Consulting Unavailable GISELLE ELIZONDO Primary Care Unavailable NIEVES BORJA Attending Unavailable FELECIA MERCADO Attending Unavailable GUTHRIE, MARTY Primary Care Unavailable GUTHRIE, MARTY Attending Unavailable GUTHRIE, MARTY Referring Unavailable GUTHRIE, MARTY Primary Care Unavailable Jack Plasencia Attending Unavailable Guthrie, Marty Primary Care Unavailable SementiKeerthi Referring Unavaila ble SANTA, DIANA Primary Care Unavailable Kevin Caballero Consulting Unavailable Kevin Caballero Admitting Unavailable Goldy Warren Attending Unavailable Isabel, Ayman Consulting Unavailable Ainsley Malagonag Consulting Unavailable Sveta Macias Consulting Unavailable BARK, DIANA Primary Care Unavailable Elsy Perdomo Admitting Unavailable Elsy Perdomo Consulting Unavailable Kevin Robles Attending Unavailable Juana, Carlosyaprazenas Consulting Unavailable Isabel, Ayman Consulting Unavailable Jack Plasencia Consulting Unavailable Guthrie, Marty Primary Care Unavailable SemenKeerthi hope Admitting Unavaila ble Semenherminia, Keerthi Romero Attending Unavaila ble Basalthu, Daniel Consulting Unavailable SANTA, DIANA Primary Care Unavailable Kevin Caballero Consulting Unavailable Kevin Caballero Admitting Unavailable Sveta Macias Attending Unavailable Basali, Ayman Consulting Unavailable Manas Mike Consulting Unavailable Sveta Macias Consulting Unavailable Mike Malagon Attending Unavailable Goldy Warren Referring Unavailable Tereletsky, Goldy Consulting Unavailable Goldy Warren Attending Unavailable Aleksandra Dunlap Attending Unavailable Jack Plasencia Consulting Unavailable [facility] Primary Care Unavailable Sementi, Carmel Admitting Unavaila ble Sementi, Carmel Attending Unavaila ble Basali, Ayman Consulting Unavailable Semenherminia, Carmel Consulting Unavaila ble Amairani Choudhary Attending Unavailable Perez Agosto Attending Unavailable Sementi, Carmel Referring Unavaila ble Guthrie, [place] Primary Care Unavailable Mike Malagon Attending Unavailable Guthrie, Marty Referring Unavailable RayneBrendan Attending Unavailable [facility] Primary Care Unavailable Rayne, [place] Attending Unavailable BARK, DIANA Primary Care Unavailable Elsy Perdomo Admitting Unavailable Elsy Perdomo Consulting Unavailable Kevin Robles Attending Unavailable Price Nolasco Consulting Unavailable Fabricio Manzano Consulting Unavailable Charan Crowell Consulting Unavailable Gato Givens Consulting Unavailable Kevin Delatorre Consulting Unavailable Aden Saldivar Consulting Unavailable Kp Gong Consulting Unavailable Tesas Nava Consulting Unavailab Cruzito Guillen Consulting Unavailable BaigClayton byrd Consulting Unavailable Shane Pizano Consulting Unavailable Lorna Salvador Consulting Unavailable Aljunclif, Premia Consulting Unavailable Sadler, Darcie Consulting Unavailable [place], Jose Carlos Consulting Unavailable Jamal Mcpherson Consulting Unavailable Isabella, Marshal Consulting Unavailable Dhealejandro, Jose Consulting Unavailable Guillermo Ramirez Consulting Unavailable Irma Contreras Consulting Unavailable Giovanni Jimenez Consulting Unavailable Chapin Longo Consulting Unavailable Jesus Barrientos Consulting Unavailable Juana, Jayaprazenas Consulting Unavailable Isabel, Ayman Consulting Unavailable Kevin Robles Consulting Unavailable Gato Givens Attending Unavailable Kevin Robles Referring Unavailable Kevin Caballero Attending Unavailable Elsy Perdomo Attending Unavailable Wilder Gabriel NP Attending Unavailable [facility] Primary Care Unavailable [facility], Marty Referring Unavailable BARK, DIANA Referring Unavailable BARK, DIANA Primary Care Unavailable Aleksandra Dunlap Attending Unavailable RayneBrendan kulkarni Attending Unavailable SisJack mclain Attending Unavailable Siszena Jack Consulting Unavailable [facility], [place] Primary Care Unavailable Sementi, Keerthi Romero Referring Unavaila ble Siszena, Jack Attending Unavailable Siska, Jack Consulting Unavailable Guthrie, [place] Primary Care Unavailable SemenherminiaKeerthiCarmel Referring Unavaila ble SisJack mclain Consulting Unavailable Luis Angel, Jack Attending Unavailable SemenKeerthi hopeCarmel Referring Unavaila ble Guthrie, [place] Primary Care Unavailable Guthrie, [place] Primary Care Unavailable Lucas Wong Attending Unavailable Guthrie, [place] Primary Care Unavailable Brisa Gamble Attending Unavailable Guthrie, [place] Primary Care Unavailable María Wasserman Attending Unavailable [facility], DIANA Primary Care Unavailable Reji Bennett Attending Unavailable Reji Bennett Referring Unavailable María Wasserman Attending Unavailable Guthrie, [place] Primary Care Unavailable Guthrie, Marty Referring Unavailable Jack Plasencia Attending Unavailable Guthrie, [place] Primary Care Unavailable SementiKeerthiCarmel Referring Unavaila ble Guthrie, [place] Primary Care Unavailable Roof LITHOGRAPHING MACHINE OPERATOR, Wilder Lance Attending Unavailable Medications Current Medications Medication Drug Class(es) [...] 0 Refill(s) Start Date: 09/03/21 Status: Ordered [id number] 200 actuat albuterol 0.09 mg/actuat metered dose inhaler (20 sources) beta2-Adrenergic Agonist Start: 11-18-2024 Start: 11-18-2024 Start: 10-14-2022 albuterol 108 (90 Base) MCG/ACT [...] of Breath 120 each 3 06/07/2017 Active albuterol 0.833 mg/ml / ipratropium bromide 0.167 mg/ml inhalation solution (15 sources) Anticholinergic, beta2-Adrenergic Agonist Start: 04-29-2025 End: 05-15-2025 take 1 mL by inhalation every two hours as needed for wheezing Ipratropium-Albuterol 0.5 mg-3 mg(2.5 mg base)/3 mL solution for nebulization Discontinued 3 mL INHALATION Q2H as needed for shortness of breath or wheezing April 29, 2025 12:00am May 15, 2025 10:49am until breathing returns to target peak flow/parameters Start: 04-25-2025 End: 04-29-2025 3 mL, Nebulization, Every 12 hours scheduled (2 times per day), First dose (after last modification) on 04/26/25 at 2100 Start: 04-23-2025 End: 04-24-2025 3 mL, Nebulization, 4 times daily, First dose (after last modification) on Mon04/23/25 at 0800 Start: 04-23-2025 End: 05-14-2025 ipratropium-albuterol (Duo-N eb) 0.5-2.5 mg/3 mL nebulizer solution Indications: Closed fracture of multiple ribs of left side with routine healing Take 3 mL by nebulization every 2 hours as needed for wheezing for up to 15 days. 04/29/2025 Active alendronic acid 70 mg oral tablet (2 sources) Bisphosphonate Start: 05-15-2025 take 1 tablet by mouth every week betamethasone 1 mg/ml topical cream (20 sources) Corticosteroid Start: 07-16-2018 End: 07-05-2022 betamethasone valerate 0.1 % cream Apply to affected area once daily. Apply to arms 45 g 3 07/05/2022 Active Comment on above: APPLY TO SKIN NEE DED Apply to affected ar ea once daily. Apply to arms Breztri Aerosphere inhalation aerosol (1 source) Start: 09-03-2021 take 1 dose by mouth twice daily Breztri Aerosphere inhalation aerosol Dose = 2 puff(s), Inhalation, BID, rinse mouth and throat after use, # 5.9 gram(s), 0 Refill(s) Start Date: 09/03/21 Status: Ordered Budesonide / formoterol (20 sources) Corticosteroid, beta2-Adrenergic Agonist Start: 04-29-2024 take 2 puff(s) by inhalation twice daily budesonide-formote rol (SYMBICORT) 160-4.5 mcg/actuation inhaler Inhale 2 Puffs [...] 1 Each 06/16/2023 Active Start: 08-05-2022 End: 04-29-2025 take 2 puff(s) by inhalation in the morning budesonide-formoterol (Symbicort) 160-4.5 MCG/ACT inhaler Indications: Chronic obstructive pulmonary disease, unspecified COPD type (HCC) Inhale 2 puffs in the morning and 2 puffs in the evening. Rinse mouth with water after use to reduce aftertaste and incidence of candidiasis. Do not swallow.. 3 each 3 08/05/2022 04/29/2025 Discontinued (Stop taking at discharge) Start: 08-05-2022 End: 06-16-2023 SYMBICORT 160-4.5 mcg/actuat ion inhaler End: 04-29-2025 take 2 puff(s) by inhalation twice daily budesonide-formoterol (Symbicort) 80-4.5 MCG/ACT inhaler Inhale 2 puffs 2 times daily. 04/29/2025 Discontinued (Stop taking at discharge) Comment on above: Inhale 2 Puffs as in structed two times a day. 168 hr buprenorphine 0.01 mg/hr transdermal system (14 sources) Partial Opioid Agonist Start: 05-15-2025 apply 10 ug transdermal route every week Start: 04-24-2025 End: 05-15-2025 apply 5 ug transdermal route every week Buprenorphine (Butrans) 5 mcg/hour patch weekly Discontinued 1 NMA TD Q7D April 30, 2025 12:00am May 15, 2025 10:41am blood pressure cholecalciferol 0.05 mg oral capsule (20 sources) Vitamin D Start: 05-16-2025 take 1 capsule by [facility] twice daily Start: 04-23-2025 End: 04-29-2025 take 2000 [IU] by mouth once daily 2,000 Units, Oral, Daily, First dose on Mon04/23/25 at 0900 Start: 11-17-2024 End: 05-15-2025 take 1 capsule by mouth once daily Cholecalciferol (Vitamin D3) 50 mcg (2,000 unit) capsule Discontinued 50 ug PO DAILY November 17, 2024 12:00am May 15, 2025 10:46am supplement Start: 09-18-2024 Cholecalcifero l, Vitamin D3, 50 mcg (2,000 unit) cap Take 2,000 Units by mouth. 09/18/2024 Active Start: 11-06-2021 cholecalcifero l 25 mcg (1000 intl units) oral tablet Dose : 1,000 unit(s) = 1 tab(s), Oral, Daily, 0 Refill(s) Start Date: 11/06/21 Status: Ordered take 1 capsule by [facility] once daily cholecalciferol (Vitamin D-3) 50 MCG (2000 UT) capsule Take 2,000 Units by mouth daily. Active citalopram 20 mg oral tablet (9 sources) Serotonin Reuptake Inhibitor Start: 05-02-2017 take 1 tablet by mouth once daily citalopram (CELEXA) 20 MG tablet Take 20 mg by mouth daily 0 05/02/2017 Active 12 hr dextromethorphan hydrobromide 30 mg / guaiFENesin 600 mg extended release oral tablet (2 sources) Uncompetitive W-pftigx-S-asparta te Receptor Antagonist, Sigma-1 Agonist Start: 07-11-2022 End: 07-18-2022 take 1 tablet by mouth twice daily dextromethorphan-g uaiFENesin (MUCINEX DM) 30-600 mg per tablet Indications: Viral URI with cough Take 1 tablet by mouth twice daily for 7 days. 14 tablet 0 07/11/2022 07/18/2022 Active Comment on above: Take 1 tablet by [facility] twice daily for 7 days. diazePAM 10 mg oral tablet (4 sources) Benzodiazepine Start: 07-10-2024 End: 08-09-2024 diazePAM (VALIUM) 10 mg tablet Indications: Pancreatic cyst Take one tablet one hour prior to MRI 1 tablet 07/10/2024 08/09/2024 Active docusate sodium 100 mg oral capsule (4 sources) Start: 04-26-2025 End: 05-09-2025 take 1 capsule by mouth twice daily docusate sodium 100 MG capsule Take 1 capsule (100 mg) by mouth 2 times daily for 10 days. 04/29/2025 05/09/2025 Active empagliflozin 10 mg oral tablet (20 sources) Sodium-Glucose Cotransporter 2 Inhibitor Start: 04-29-2025 take 1 tablet by mouth once daily 0.3 ml enoxaparin sodium 100 mg/ml prefilled syringe (7 sources) Low Molecular Weight Heparin Start: 04-29-2025 End: 05-13-2025 inject 0.3 mL by subcutaneous injection every twelve hours enoxaparin (Lovenox) 30 MG/0.3ML solution prefilled syringe Indications: Prophylaxis of Venous Thromboembolism Inject 0.3 mL (30 mg) under the skin every 12 hours for 14 days. 04/29/2025 05/13/2025 Active Start: 04-25-2025 End: 05-15-2025 Enoxaparin (Lovenox) 30 mg/0 .3 mL syringe Discontinued 30 mg SC Q12H April 29, 2025 12:00am May 15, 2025 10:47am dvt folic acid 1 mg oral tablet (20 sources) Start: 06-26-2021 take 1 tablet by mouth once da terell End: 07-05-2022 folic acid 800 mcg tablet Ta ke 400 mcg by mouth once daily. 0 07/05/2022 Discontinued take 800 mg by mouth once daily FOLIC ACID PO Take 800 mg by mouth daily 0 Active Comment on above: Take 400 mcg by mout h once daily. 60 actuat formoterol fumarat e 0.005 mg/actuat / mometasone furoate 0.1 mg/actuat metered dose inhaler (9 sources) Corticosteroid, beta2-Adrenergic Agonist Start: 04-29-2025 Start: 04-23-2025 End: 05-29-2025 take 2 puff(s) by mouth twice daily mometasone-formoterol (Dulera 100) 100-5 MCG/ACT inhaler Inhale 2 puffs 2 times daily. Rinse mouth with water after use to reduce aftertaste and incidence of candidiasis. Do not swallow. 04/29/2025 Active furosemide 40 mg oral tablet (20 sources) Loop Diuretic Start: 05-15-2025 take 1 tablet by key th once daily Start: 04-27-2025 End: 04-27-2025 20 mg, IntraVENous, Once, On Mon04/27/25 at 1200, For 1 dose Start: 11-17-2024 End: 05-15-2025 take 1 tablet by mouth every twenty-four hours as needed furosemide (Lasix) 20 MG tablet Take 20 mg by mouth Daily as needed. 11/25/2024 Active gabapentin 100 mg oral capsule (20 sources) Anti-epileptic Agent Start: 04-23-2025 End: 05-29-2025 take 1 capsule by mouth every twelve hours gabapentin (Neurontin) 100 MG capsule Take 1 capsule (100 mg) by mouth every 12 hours. 04/29/2025 Active Start: 04-23-2025 End: 04-23-2025 take 100 mg by mouth three times daily 100 mg, Oral, 3 times daily, First dose on Mon04/23/25 at 0900 Start: 12-19-2023 End: 01-23-2025 take 1 capsule by mouth three times daily gabapentin (NEURONTIN) 100 mg capsule Take 100 mg by mouth three times a day. 12/19/2023 Active hydrOXYzine hydrochloride 25 mg oral tablet (20 sources) Antihistamine Start: 09-28-2023 take 1 tablet by mouth every eight hours as needed hydrOXYzine HCl (ATARAX) 25 mg tablet Take 1 tablet by mouth three times a day as needed. 91 tablet 1 09/28/2023 Active Comment on above: Take 1 tablet by key th three times a day as needed. levalbuterol 0.21 mg/ml inhalation solution (20 sources) [...] 7 days. 7 tablet 09/12/2024 09/19/2024 Active melatonin 3 mg oral capsule (20 sources) Start: 04-29-2025 take 1 capsule by mouth at bedtime Start: 04-23-2025 End: 05-14-2025 take 1 tablet by mouth once daily as needed for sleep melatonin 3 MG tablet Take 1 tablet (3 mg) by mouth Nightly as needed for sleep for up to 15 days. 04/29/2025 05/14/2025 Active Start: 11-24-2024 End: 12-24-2024 take 1 tablet by mouth at bedtime as needed Melatonin 3 mg Tablet Discontinued 3 mg PO AT BEDTIME NEEDED as needed for Insomnia 0 0 November 24, 2024 12:00am December 24, 2024 6:30pm Oxygen - Supplemental ([facility] Informational Use Only) gas (2 sources) Start: 05-01-2025 Oxygen - Supplemental ([facility] Informational Use Only) gas Active 0 .ROUTE May 01, 2025 12:00am Hypoxemia As directed pantoprazole 20 mg delayed release oral tablet (2 sources) Proton Pump Inhibitor Start: 05-15-2025 take 1 tablet by mouth twice daily polyethylene glycol 3350 39731 mg powder for oral solution (6 sources) Osmotic Laxative Start: 04-29-2025 End: 05-02-2025 take 17 g by mouth twice daily polyethylene glycol, PEG, 3350 (Miralax) 17 g packet Take 17 g by mouth 2 times daily for 3 days. 04/29/2025 05/02/2025 Active Start: 04-23-2025 End: 04-29-2025 take 1 dose by mouth every twenty-four hours for constipation 17 g, Oral, 2 times daily, First dose (after last modification) on 04/26/25 at 2100, 1st line for treatment of constipation - give scheduled if no bowel movement in past 24 hours. potassium chloride 10 meq extended release oral capsule (2 sources) Start: 05-16-2025 take 1 capsule by mo uth once daily Risankizumab-Rzaa (12 sources) Start: 12-24-2024 Start: 12-24-2024 Start: 12-24-2024 Risankizumab-R zaa (Skyrizi) 150 mg/mL pen injector Active 150 mg SC Q90D December 24, 2024 12:00am Risankizumab-rzaa (SKYRIZI S C) (18 sources) Risankizumab-rza a (SKYRIZI SC) Inject under the skin. Suspended Risankizumab-rza a (SKYRIZI SC) Inject under the [...] 150 mg subcut aneously every 3 months. sennosides, residential 8.6 mg oral tablet (8 sources) Start: End: take 2 tablets by mouth twice daily sennosides (Senokot) 8.6 MG tablet Take 2 tablets (17.2 mg) by mouth 2 times daily. 04/29/2025 04/29/2026 Active Start: 04-23-2025 End: 04-29-2025 take 1 tablet by mouth twice daily 17.2 mg (2 tablet), Oral, 2 times daily, First dose on Mon04/23/25 at 0900 Start: 11-06-2021 Senokot S Dose = 2 tab(s), Oral, BID, Take until first bowel movement, then as needed, 0 Refill(s) Start Date: 11/06/21 Status: Ordered spironolactone 25 mg oral tablet (2 sources) Aldosterone Antagonist Start: 05-15-2025 28 actuat teriparatide 0.02 mg/actuat pen injector (10 sources) Parathyroid Hormone Analog Start: 04-03-2025 inject 0.08 mL by subcutaneous injection once daily teriparatide (Forteo) injection Indications: Age-related osteoporosis without current pathological fracture , History of fragility fracture , Fracture Risk Assessment Score (FRAX) indicating greater than 20% risk for major osteoporosis-rela berta fracture , Fracture Risk Assessment Score (FRAX) indicating greater than 3% risk for hip fracture Inject 0.08 mL (20 mcg) under the skin daily. 1 each 04/03/2025 Active Tiotropium Steens (Spiriva With Handihaler) 18 mcg capsule, w/inhalation device (9 sources) Start: 11-18-2024 take 1 capsule by inhalation once daily as needed Tiotropium Steens (Spiriva With Handihaler) 18 mcg capsule, w/inhalation [...] Sig (Original) acetaminophen 500 mg oral tablet (20 sources) Start: 04-29-2025 End: 05-15-2025 take 2 tablets by mouth every eight hours Acetaminophen 500 mg tablet Discontinued 1000 mg PO EVERY 8 HOURS April 29, 2025 12:00am May 15, 2025 10:52am pain Start: 04-23-2025 End: 04-29-2025 take 1 tablet by mouth every eight hours 1,000 mg, Oral, Every 8 hours, First dose on Mon04/23/25 at 0215, Maximum dose of acetaminophen is 4000 mg from all sources in 24 hours. Start: 11-24-2024 End: 12-24-2024 Acetaminophen 325 mg Tablet Discontinued 650 mg PO EVERY 6 HOURS NEEDED as needed for Pain 1-10 Or Fever >100.7 0 0 November 24, 2024 12:00am December 24, 2024 6:27pm Start: 11-06-2021 End: 11-20-2021 take 1 tablet by mouth once daily acetaminophen 500 mg oral tablet Dose : 500 mg = 1 tab(s), Oral, TID, PRN as needed for pain, not to exceed 3000 mg/day, # 100 tab(s), 0 Refill(s), 11/20/21 10:33:00 EDT, Pharmacy: [address], 155, cm, 11/05/21 17:08:00 EDT, Height, kg, 11/05/21 17:08:00 EDT, Dosing Weight Start Date: 11/06/21 Stop Date: 11/20/21 Status: Ordered Start: 11-03-2021 acetaminophen Dose : 650 mg = 2 tab(s), Oral, q4h, PRN Pain, scale 1-3, 0 Refill(s) Start Date: 11/03/21 Status: Ordered acetaminophen 325 mg / oxyCODONE hydrochloride 5 mg oral tablet (20 sources) Opioid Agonist Start: 04-22-2025 End: 05-15-2025 Oxycodone-Acetaminophen 5-32 5 mg tablet Discontinued 1 {tbl} PO THREE TIMES A DAY as needed for pain 4-10 21 7 0 May 15, 2025 10:57am May 15, 2025 11:01am Start: 12-24-2024 End: 01-01-2025 Oxycodone-Acetaminophen 5-32 5 mg tablet Discontinued 1 {tbl} PO THREE TIMES A DAY as needed for pain December 24, 2024 12:00am January 01, 2025 1:23pm Start: 12-24-2024 End: 01-01-2025 Start: 11-18-2024 End: 11-24-2024 Oxycodone-Acetaminophen 5-32 5 mg tablet Discontinued 1 {tbl} PO 3 TIMES DAILY NEEDED as needed for pain November 18, 2024 12:00am November 24, 2024 8:45am Start: 11-18-2024 End: 11-24-2024 Start: 06-05-2024 End: 06-12-2024 take 1 tablet by mouth every four hours as needed for pain oxyCODONE-acetaminophen (PERCOCET) 5-325 mg tablet Indications: Closed fracture of multiple ribs of left side with routine healing, subsequent encounter Take 1 tablet by mouth every 4 hours as needed for pain for up to 7 days. 28 tablet 06/05/2024 06/12/2024 Active Start: 06-26-2021 End: 09-16-2023 Start: 06-26-2021 take 1 tablet by key th every six hours as needed Oxycodone-Acetaminophen Active 1 TABLET PO EVERY 6 HOURS NEEDED 20 5 June 26, 2021 Start: 08-16-2018 End: 07-05-2022 take 1 tablet by mouth every eight hours as needed oxyCODONE-acetaminophen (PERCOCET 10) 10-325 mg tablet Take 1 tablet by mouth three times daily as needed. 0 08/16/2018 07/05/2022 Discontinued Start: 10-18-2016 End: 04-25-2025 Oxycodone-Acetaminophen 1 TA BLET tablet Discontinued 1 {tbl} PO EVERY 6 HOURS NEEDED as needed for pain 20 5 0 June 26, 2021 September 16, 2023 12:30pm Fracture of humerus, proximal, right, closed Comment on above: Take 1 tablet by key th three times daily as needed. amitriptyline hydrochloride 25 mg oral tablet (20 sources) Tricyclic Antidepressant Start: 08-26-19 End: 12-25-19 [...] twice daily on Day 6 and thereafter atenolol 50 mg oral tablet (20 sources) beta-Adrenergic Ria Start: 04-23-2025 End: 04-29-2025 take 25 mg by mouth once daily 25 mg, Oral, Daily, First dose on Mon04/23/25 at 0900, HOLD for SBP Start: 06-26-2021 End: 06-14-2025 atenolol (Tenormin) 25 MG ta blet 05/25/2022 Active take 1 tablet by key once daily atenolol (TENORMIN) 50 mg tablet Take 50 mg by mouth once daily. 0 Active Comment on above: Take 50 mg by mouth once daily. Take 1 tablet by key th once daily. azithromycin 500 mg oral tablet (14 sources) Macrolide Antimicrobial Start: 09-16-19 End: 09-19-19 take 1 tablet by mouth once daily Azithromycin (Zithromax Tri-Amandeep) 500 mg tablet Discontinued 500 mg PO DAILY 3 3 0 September 16, 2023 1:00am September 18, 2023 1:00am September 19, 2023 1:05am Acute exacerbation of chronic obstructive pulmonary disease Chronic obstructive pulmonary disease with (acute) exacerbation baclofen 10 mg oral tablet (20 sources) gamma-Aminobutyric Acid-ergic Agonist Start: 04-23-20 End: 04-29-20 take 5 mg by mouth once daily 5 mg, Oral, Nightly, First dose (after last modification) on Mon04/23/25 at 2100 Start: 04-23-2025 End: 04-23-2025 take 5 mg by mouth three times daily 5 mg, Oral, 3 times daily, First dose on Mon04/23/25 at 0900 Start: 04-22-2025 take 1 tablet by key th at bedtime Start: 04-22-2025 End: 04-29-2025 take 5 mg by mouth at bedtime Baclofen 10 mg tablet Di scontinued 5 mg PO AT BEDTIME April 22, 2025 12:00am April 29, 2025 6:27pm pain Start: 11-25-2022 take 1 tablet by key th twice daily baclofen (LIORESAL) 5 mg tablet Take 5 mg by mouth twice daily. 11/25/2022 Active take 5 mg by mouth t hree times daily baclofen (Lioresal) 10 MG tablet Take 5 mg by mouth 3 times daily. Active Comment on above: Take 5 mg by mouth t wice daily. 120 actuat budesonide 0.16 mg/actuat / formoterol fumarate 0.0048 mg/actuat / glycopyrrolate 0.009 mg/actuat metered dose inhaler (1 source) Corticosteroid, beta2-Adrenergic Agonist End: 06-16-20 take 2 puff(s) by inhalation twice daily budesonide-glycopyr -formoterol (BREZTRI AEROSPHERE) 160-9-4.8 mcg/actuation HFA aerosol inhaler Inhale 2 Puffs as instructed two times a day. 0 06/16/2023 Discontinued (Discontinued by Patient) Comment on above: Inhale 2 Puffs as in structed two times a day. carisoprodol 350 mg oral tablet (20 sources) Muscle Relaxant Start: 06-04-20 End: 01-24-20 take 1 tablet by mouth once daily [...] as needed. Take 1 tablet by key th at bedtime as needed for up to 30 days. Take 1 tablet by key th twice daily as needed for up to 30 days. take 1 tablet by key th twice a day if needed for up to 30 DAYS ceFAZolin (Ancef) 1,000 mg in sodium chloride 0.9 % 50 mL IVPB (2 sources) Start: 2024 End: 2024 take 1000 mg intravenously every eight hours 1,000 mg, IntraVENous, at 100 mL/hr, Administer over 30 Minutes, Every 8 hours, First dose on Kayleigh 04/24/25 at 1800, Mini-Bag Plus bag, Suspected Indication (Select all that apply): Urinary Tract Infection ciprofloxacin 500 mg oral tablet (7 sources) Quinolone Antimicrobial Start: 2024 End: 2024 take 1 tablet by mouth twice daily Ciprofloxacin Hcl (Cipro) 500 mg tablet Discontinued 500 mg PO TWICE A DAY 10 5 0 March 08, 2025 12:00am March 12, 2025 12:00am March 13, 2025 12:09am cyclobenzaprine hydrochloride 10 mg oral tablet (2 sources) Muscle Relaxant Start: 2023 End: 2023 take 5 mg by mouth once 5 mg, Oral, Once, On Mon06/07/24 at 1840, For 1 dose diclofenac sodium 0.01 mg/mg topical gel (2 sources) Nonsteroidal Anti-inflammatory Drug Start: 2017 End: 2021 diclofenac sodium (VOLTAREN) 1 % topical gel APPLY TO SHOULDER EVERY 6 HOURS NEEDED 06/12/2018 07/05/2022 Discontinued Comment on above: APPLY TO SHOULDER EV BRYANT 6 HOURS NEEDED docusate sodium 50 mg / sennosides, residential 8.6 mg oral tablet (13 sources) Start: 2024 End: 2024 Sennosides-Docusate Sodium (Stimulant Laxative Plus) 8.6-50 mg Tablet Discontinued 2 {tbl} PO TWICE DAILY NEEDED as needed for Constipation 0 0 November 24, 2024 12:00am December 24, 2024 6:31pm Start: 11-24-2024 End: 12-24-2024 enteric contrast (will be provided with radiology test) (2 sources) Start: 05-22-2023 End: 05-23-2023 enteric contrast (will be provided with radiology [...] Contrast as designated per enteric contrast guidelines famotidine 20 mg oral tablet (20 sources) Histamine-2 Receptor Antagonist Start: 09-03-2021 famotidine 40 mg oral tablet Dose : 40 mg = 1 tab(s), Oral, Daily, 0 Refill(s) Start Date: 09/03/21 Status: Ordered Start: 05-02-2017 End: 05-15-2025 take 1 tablet by mouth in the morning famotidine (Pepcid) 20 MG tablet Take 20 mg by mouth in the morning. 05/02/2017 Active Comment on above: Take 20 mg by mouth once daily. Take 1 tablet by key th once daily. TAKE 1 TABLET BY KEY TH ONCE DAILY fluticasone propionate 0.05 mg/actuat metered dose nasal spray (20 sources) Corticosteroid Start: 2 End: 3 take 1 spray(s) nasal route twice daily fluticasone (FLONASE ALLERGY RELIEF) 50 mcg/actuation nasal spray Indications: Viral URI with cough Use 1 [place] in each nostril twice daily. 1 Each 0 07/11/2022 06/16/2023 Discontinued Comment on above: Use 1 [place] in each nostril twice daily. Food Supplemt, Lactose-Reduced (Ensure Plus High Protein) 0.08 gram-1.5 kcal/mL Liquid (11 sources) Start: End: Food Supplemt, Lactose-Reduced (Ensure Plus High Protein) 0.08 gram-1.5 kcal/mL Liquid Discontinued 120 mL PO 4 TIMES DAILY 0 0 November 24, 2024 12:00am December 24, 2024 6:28pm Start: 11-24-2024 End: 12-24-2024 Food Supplemt, Lactose-Reduc ed (Ensure Plus High Protein) 0.08 gram-1.5 kcal/mL Liquid Discontinued 120 mL PO 4 TIMES DAILY November 24, 2024 12:00am December 24, 2024 6:28pm Start: 11-24-2024 Food Supplemt, Lactose-Reduced (Ensure Plus High Protein) 0.08 gram-1.5 kcal/mL Liquid Active 120 mL PO 4 TIMES DAILY November 24, 2024 12:00am glucagon (rdna) 1 mg injecti on (2 sources) Antihypoglycemic Agent Start: 04-23-2025 End: 04-29-2025 50 ml glucose 50 mg/ml injec tion (4 sources) Start: 04-23-2025 End: 04-29-2025 Start: 04-23-2025 End: 04-29-2025 12 hr guaiFENesin 1200 mg extended release oral tablet (20 sources) Start: 11-24-2024 End: 12-24-2024 take 1 [...] sources) Thiazide Diuretic Start: 09-13-2018 End: 01-23-2025 take 1 capsule by mouth once daily Hydrochlorothiazide 12.5 mg capsule Discontinued 12.5 mg PO DAILY June 26, 2021 12:00am November 17, 2024 3:47pm Start: 05-02-2017 End: 10-26-2022 take 1 tablet by mouth once daily hydrochlorothiazide (HYDRODIURIL) 25 MG tablet Take 25 mg by mouth daily 0 05/02/2017 Active Comment on above: Take 25 mg by mouth once daily. Take 12.5 mg by [facility] once daily. Take 1 capsule by mo [facility] once daily. TAKE 1 CAPSULE BY [facility] ONCE DAILY 1 ml HYDROmorphone hydrochloride 1 mg/ml cartridge (4 sources) Opioid Agonist Start: 04-24-20 End: 04-26-20 take 0.5 mg intravenously every four hours as needed for pain 0.5 mg, IntraVENous, Every 4 hours PRN, severe pain (7-10), Starting on Kayleigh 04/24/25 at 0545, If oral and injectable narcotics ordered, use oral first and only use injectable if oral is ineffective or cannot take oral. Do Not give oral and injectable within 1 hour of each other unless specifically ordered. Second line for break through severe pain Start: 04-24-2025 End: 04-24-2025 take 1 dose by mouth every hour 1 mg, IntraVENous, Once, On Kayleigh 04/24/25 at 0545, For 1 dose, If oral and injectable narcotics ordered, use oral first and only use injectable if oral is ineffective or cannot take oral. Do Not give oral and injectable within 1 hour of each other unless specifically ordered. ibuprofen 600 mg oral tablet (1 source) Nonsteroidal Anti-inflammatory Drug Start: 07-23-2018 take 1 tablet by mouth every eight hours as needed ibuprofen (MOTRIN) 600 mg tablet Take 600 mg by mouth three times daily as needed. 11 07/23/2018 Active Comment on above: Take 600 mg by mouth three times daily a s needed. iopamidol (ISOVUE-370) 76 % injection 75 mL (2 sources) Start: 02-09-2022 End: 02-09-2022 iopamidol (ISOVUE-370) 76 % injection 75 mL Start: 05-17-2021 End: 05-17-2021 iopamidol (ISOVUE-370) 76 % injection 75 mL iopamidol (Isovue-370) 76 % injection 75 mL (2 sources) Start: 04-25-2025 End: 04-25-2025 take 75 mL intravenously once as needed 75 mL, IntraVENous, IMG once PRN, contrast, Starting on Mon04/25/25 at 1031, For 1 dose ipratropium bromide 0.2 mg/ml inhalation solution (20 sources) Anticholinergic Start: 04-29-2025 End: 05-15-2025 take 1 mL by inhalation every six hours as needed for wheezing Ipratropium Steens 0.02 % solution Discontinued 1.25 mL INHALATION EVERY 6 HOURS as needed for wheezing April 29, 2025 12:00am May 15, 2025 10:49am Start: 08-05-2022 ipratropium (A trovent) 0.02 % nebulizer solution Indications: Chronic obstructive pulmonary disease, unspecified COPD type (HCC) Take 2.5 mL (0.5 mg) by nebulization every 6 hours as needed for wheezing or shortness of breath. 75 mL 11 08/05/2022 Active Start: 06-26-2021 End: 12-24-2024 take 1 mL by inhalation once daily Ipratropium Steens 0.02 % solution Discontinued 2 mL INHALATION DAILY June 26, 2021 12:00am December 24, 2024 6:29pm Start: 06-26-2021 End: 12-24-2024 Start: 06-02-2021 ipratropium (A TROVENT) 0.02 % nebulizer solution Indications: Moderate COPD (chronic obstructive pulmonary disease) (HCC) Take 2.5 mLs by nebulization every 6 hours as needed for Wheezing 360 mL 3 06/02/2021 Active iv contrast (will be provide d with radiology test) (4 sources) Start: 07-10-2024 End: 07-10-2024 iv contrast (will be provide d with radiology test) Indications: Pancreatic cyst MRI PANC/MARCK Inject, intravenously, once for 1 dose. No [...] On Mon06/07/24 at 1840, For 1 dose lidocaine 0.05 mg/mg medicated patch (20 sources) Antiarrhythmic, Amide Local Anesthetic Start: 025 End: Lidocaine 5 % Adhesive Patch,Medicated Discontinued 2 NMA TOPICAL DAILY 60 0 January 01, 2025 12:00am May 15, 2025 10:50am pain Apply to area of low back pain-change daily Please contact the information source for Protocol details. Start: 12-27-2023 lidocaine (LID ODERM) 5 % 12/27/2023 Active methotrexate 2.5 mg oral tablet (20 sources) Folate Analog Metabolic Inhibitor Start: 06-26-2021 End: 09-16-2023 Methotrexate Sodium 2.5 mg tablet Discontinued June 26, 2021 12:00am September 16, 2023 12:31pm Start: 05-02-2017 End: 09-16-2023 End: 07-05-2022 take 4 tablets by mouth once methotrexate 2.5 mg table t Take 10 mg by mouth every Monday. 0 07/05/2022 Discontinued Comment on above: Take 10 mg by mouth every Monday. mupirocin 0.02 mg/mg topical ointment (2 sources) RNA Synthetase Inhibitor Antibacterial Start: End: 1 Application, Nasal, 2 times daily, First dose on Mon04/23/25 at 0215, For 5 days, Indications: MRSA Nasal Decolonization 1 ml naloxone hydrochloride 0.4 mg/ml injection (2 sources) Opioid Antagonist Start: End: nystatin 751702 unt/ml oral suspension (13 sources) Polyene Antifungal Start: End: take 144700 [IU] by mouth four times daily Nystatin 100,000 unit/mL Suspension Discontinued 235281 U PO 4 TIMES DAILY 200 10 0 November 24, 2024 12:00am December 24, 2024 6:30pm ondansetron 4 mg disintegrating oral tablet (4 sources) Serotonin-3 Receptor Antagonist Start: End: take 1 tablet by mouth every eight hours as needed for nausea and vomiting Ondansetron 4 mg tablet,disintegrating Discontinued 8 mg PO Q8H as needed for nausea and vomiting April 29, 2025 12:00am May 15, 2025 10:51am 1st dose 1-2 hr before radiation ondansetron ODT (Zofran-ODT) disintegrating tablet 4 mg (2 sources) Start: End: take 1 tablet by mouth every eight hours as needed for nausea and vomiting ondansetron ODT (Zofran-ODT) disintegrating tablet 4 mg oxyCODONE hydrochloride 5 mg oral tablet (20 sources) Opioid Agonist Start: End: take 1 tablet by mouth every four hours as needed for pain Oxycodone 5 mg Tablet Discontinued 5 mg PO Q4H as needed for Pain Score1-10 April 29, 2025 12:00am May 15, 2025 10:52am Start: 04-25-2025 End: 04-29-2025 take 1 tablet by mouth every four hours as needed for pain oxyCODONE (Roxicodone) immediate release tablet 2.5 mg Start: 04-24-2025 End: 04-25-2025 take 1 tablet by mouth every four hours as needed for pain 10 mg, Oral, Every 4 hours PRN, severe pain (7-10), Starting on Kayleigh 04/24/25 at 0545 Start: 01-01-2025 End: 04-29-2025 take 1 tablet by mouth every six hours as needed for pain Oxycodone 5 mg Tablet Discontinued 5 mg PO EVERY 6 HOURS NEEDED as needed for Pain Score 4-5 Or Pre Pt/Ot 35 7 0 January 01, 2024April 29, 2025 6:44pm Burst fracture of lumbar vertebra 1-2 every 6 hours as needed for pain Start: 11-24-2024 End: 12-24-2024 take 1 tablet by mouth every six hours as needed for pain Oxycodone 5 mg Tablet Discontinued 5 mg PO EVERY 6 HOURS NEEDED as needed for Pain Score 6-10 12 3 0 November 24, 2024 December 24, 2024 6:33pm Psoriatic arthritis Arthropathic psoriasis, unspecified Start: 11-06-2021 End: 11-13-2021 take 1-2 tablets by mouth every four hours as needed for pain oxyCODONE 5 mg oral tablet ( IMMEDIATE release ) See Instructions, PRN as needed for pain, 1-2 tab(s) Oral q4h, # 60 tab(s), 0 Refill(s), 11/13/21 10:34:00 EDT, Pharmacy: [id number] [place] [address], Status post total shoulder arthroplasty, 155, cm, 11/05/21 17:08:00 EDT, Height, 84.4, kg, 11/05/21 17:08... Start Date: 11/06/21 Stop Date: 11/13/21 Status: Ordered perflutren protein A microsphere (Optison) 3 mL in sodium chloride (PF) 0.9 % 10 mL IV (2 sources) Start: 04-23-2025 End: 04-23-2025 0-10 mL, IntraVENous, IMG once PRN, other, Suboptimal echo image, Starting on 04/23/25 at 1440, For 1 dose, CV Procedural Medications, Administer via slow IVP for suboptimal echocardiogram enhancement. May administer as divided doses to reach optimal image enhancement predniSONE 20 mg oral tablet (20 sources) Start: 10-23-2023 End: 03-30-2025 take 1 tablet by mouth twice daily Prednisone 20 mg tablet Discontinued 20 mg PO TWICE A DAY 10 0 October 23, 2023 1:00am November 17, 2024 3:47pm Start: 09-16-2023 End: 09-21-2023 take 1 tablet by mouth once daily Prednisone 50 mg tablet Discontinued 50 mg PO DAILY 5 5 0 September 16, 2023 1:00am September 20, 2023 1:00am September 21, 2023 1:05am Acute exacerbation of chronic obstructive pulmonary disease Chronic obstructive pulmonary disease with (acute) exacerbation Start: 06-26-2021 End: 09-16-2023 take 1 tablet by mouth once daily Prednisone 20 mg tablet Discontinued 20 mg PO DAILY June 26, 2021 12:00am September 16, 2023 12:12pm Start: 06-26-2021 End: 09-16-2023 rivaroxaban 20 mg oral tablet (20 sources) Factor Xa Inhibitor Start: 06-26-2021 End: 05-15-2025 take 1 tablet by mouth once daily Rivaroxaban (Xarelto) 20 mg tablet Discontinued 20 mg PO DAILY June 26, 2021 12:00am May 15, 2025 10:56am AFIB On Hold: MD Valle Start: 09-18-2018 End: 07-05-2022 take 1 tablet by mouth once daily XARELTO 15 mg tablet Take 15 mg by mouth once daily. 0 09/18/2018 07/05/2022 Discontinued (Other) Comment on above: Take 20 mg by mouth daily with dinner. Take 15 mg by mouth once daily. Take 1 tablet by key th daily with dinner. 50 ml sodium chloride 9 mg/ml injection (12 sources) Start: 04-23-2025 End: 04-29-2025 4 mL, Nebulization, Every 12 hours, First dose on Mon04/23/25 at 0900 Start: 04-23-2025 End: 04-23-2025 250 mL, IntraVENous, at 250 mL/hr, Administer over 1 Hours, Once, On Mon04/23/25 at 1445, For 1 dose Start: 04-23-2025 End: 04-29-2025 take 30 mL intravenously every six hours 30 mL, IntraVENous, Every 6 hours, First dose on Mon04/23/25 at 0215 Start: 04-23-2025 End: 04-29-2025 10 actuat tiotropium 0.0025 mg/actuat inhalation spray (20 sources) Anticholinergic Start: 04-23-2025 End: 04-29-2025 2 puff, Inhalation, Daily, First dose on Mon04/23/25 at 0900, Instruct to hold breath for 10 seconds after each inhalation. Before first use, prime inhaler by actuating until aerosal cloud is seen, then actuating 3 more times. Administer using an inhaler spacer. Start: 11-18-2024 take 1 capsule by in halation once daily as needed Start: 11-17-2022 End: 05-08-2024 take 1 capsule by inhalation once daily in the morning tiotropium (SPIRIVA WITH HANDIHALER) 18 mcg inhalation capsule inhale THE CONTENTS OF ONE CAPSULE IN THE HANDIHALER every morning 30 capsule 5 05/08/2024 Active Start: 08-05-2022 take 1 capsule by in halation in the morning tiotropium (Spiriva) 18 MCG inhalation capsule Indications: Chronic obstructive pulmonary disease, unspecified COPD type (HCC) Place 1 capsule (18 mcg) into inhaler and inhale in the morning. 30 capsule 11 08/05/2022 Active Start: 08-05-2022 End: 08-05-2023 take 1 capsule by inhalation in the morning tiotropium (Spiriva) 18 MCG inhalation capsule Indications: Chronic obstructive pulmonary disease, unspecified COPD type (HCC) Place 1 capsule (18 mcg) into inhaler and inhale in the morning. 30 capsule 11 08/05/2022 Active Comment on above: inhale THE CONTENTS OF ONE CAPSULE IN THE HANDIHALER every morning traMADol hydrochloride 50 mg oral tablet (20 sources) Opioid Agonist Start: End: take 1 tablet by mouth three times [...] twice daily. valACYclovir 1000 mg oral tablet (14 sources) Herpesvirus Nucleoside Analog DNA Polymerase Inhibitor, Herpes Simplex Virus Nucleoside Analog DNA Polymerase Inhibitor, Herpes Zoster Virus Nucleoside Analog DNA Polymerase Inhibitor Start: 10-23-2023 End: 11-17-2024 Valacyclovir 1 gram tablet Discontinued 1000 mg PO THREE TIMES A DAY 21 0 October 23, 2023 1:00am November 17, 2024 3:48pm (6 sources) Start: 11-24-2024 End: 12-24-2024 Start: 11-24-2024 End: 12-24-2024 Start: 11-18-2024 Problems Active Problems Problem Classification Problem Date Documented Da te Episodic/Chronic Acute cerebrovascular disease (20 sources) Hemorrhage into subdural space of neuraxis; Translations: [Nontraumatic subdural hemorrhage, unspecified] Onset: 5 04-22-2025 Chronic Cardiac dysrhythmias (20 sources) Unspecified atrial fibrillation; Translations: [Chronic atrial fibrillation] Onset: 7 Chronic Chronic obstructive pulmonary disease and bronchiectasis (20 sources) Chronic obstructive lung disease; Translations: [Chronic obstructive pulmonary disease, unspecified] Onset: 8 08-24-2017 Chronic Chronic ulcer of skin (4 sources) Ulcer of lower extremity; Translations: [Non-pressure chronic ulcer of unspecified part of right lower leg with unspecified severity] Onset: 5 05-21-2025 Chronic Conditions associated with dizziness or vertigo (1 source) Dizziness and giddiness; Translations: [Dizziness and giddiness] Episodic Congestive heart failure; nonhypertensive (17 sources) Chronic systolic heart failure; Translations: [Chronic systolic (congestive) heart failure] Onset: 5 04-29-2025 Chronic Diseases of white blood cells (20 sources) Leukocytosis; Translations: [Elevated white blood cell count, unspecified] Onset: 5 12-25-2024 Chronic E Codes: Adverse effects of medical drugs (1 source) Local anesthetic drug adverse reaction; Translations: [Adverse effect of local anesthetics, initial encounter] Onset: 2 Episodic E Codes: Fall (20 sources) Fall; Translations: [Unspecified fall, initial encounter] Onset: 5 04-22-2025 Episodic Esophageal disorders (2 sources) Gastro-esophageal reflux disease without esophagitis; Translations: [Gastro-esophageal reflux disease without esophagitis] Onset: 7 Chronic Essential hypertension (20 sources) Essential (primary) hypertension; Translations: [Essential hypertension] Onset: 7 Chronic Fluid and electrolyte disorders (8 sources) Hypokalemia; Translations: [Hypokalemia] Onset: 4 Episodic Fracture of upper limb (20 sources) Closed fracture of shaft of humerus; Translations: [Unspecified fracture of shaft of humerus, unspecified arm, initial encounter for closed fracture] Onset: 2 Episodic Gastrointestinal hemorrhage (1 source) Gastrointestinal hemorrhage; Translations: [Hemorrhage of anus and rectum] 05-22-2023 Episodic Genitourinary symptoms and ill-defined conditions (20 sources) Abnormal urinalysis; Translations: [Unspecified abnormal findings in urine] Onset: 5 12-25-2024 Episodic Heart valve disorders (2 sources) Heart murmur; Translations: [Cardiac murmur, unspecified] 11-28-2024 Episodic Intracranial injury (1 source) Traumatic subdural hemorrhage without loss of consciousness, initial encounter; Translations: [Traumatic subdural hemorrhage without loss of consciousness, initial encounter] Onset: 5 Episodic Joint disorders and dislocations; trauma-related (2 sources) Inferior dislocation of right humerus, subsequent encounter; Translations: [Inferior dislocation of right humerus, subsequent encounter] Onset: 3 Episodic Malaise and fatigue (20 sources) Asthenia; Translations: [Weakness] Onset: 5 12-03-2024 Episodic Nausea and vomiting (1 source) Nausea; Translations: [Nausea] 05-22-2023 Episodic Neoplasms of unspecified nature or uncertain behavior (2 sources) Monoclonal gammopathy (clinical); Translations: [Monoclonal gammopathy] Onset: 5 2025 Chronic Nutritional deficiencies (5 sources) Vitamin D deficiency; Translations: [Vitamin D deficiency, unspecified] Onset: 5 05-15-2025 Chronic Osteoarthritis (10 sources) Unspecified osteoarthritis, unspecified site; Translations: [Arthritis of hip] Onset: 7 03-13-2025 Chronic Osteoporosis (11 sources) Osteoporosis; Translations: [Age-related osteoporosis without current pathological fracture] Onset: 5 Chronic Other aftercare (2 sources) Encounter for follow-up examination after completed treatment for conditions other than malignant neoplasm; Translations: [Encounter for follow-up examination after completed treatment for conditions other than malignant neoplasm] Onset: 3 Episodic Other aftercare (1 source) Patient encounter status; Translations: [Other shelter (current) drug therapy] 01-02-2024 Episodic Other aftercare (20 sources) Long-term current use of anticoagulant; Translations: [FCI (current) use of anticoagulants] 12-24-2024 Episodic Other aftercare (1 source) 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; Translations: [FCI (current) use of anticoagulants] Onset: 5 Episodic Other bone disease and musculoskeletal deformities (20 sources) Osteopenia; Translations: [Other specified disorders of bone density and structure, unspecified site] 12-26-2024 Episodic Other bone disease and musculoskeletal deformities (6 sources) Bone density below reference range; Translations: [Disorder of bone density and structure, unspecified] 03-13-2025 Episodic Other connective tissue disease (1 source) [...] Falls; Translations: [Repeated falls] 01-17-2024 Episodic Other diseases of veins and lymphatics (4 sources) Vascular insufficiency; Translations: [Venous insufficiency (chronic) (peripheral)] 05-15-2025 Episodic Other diseases of veins and lymphatics (1 source) Venous insufficiency (chronic) (peripheral); Translations: [Venous insufficiency (chronic) (peripheral)] Onset: 5 Episodic Other fractures (2 sources) Closed fracture of multiple left ribs; Translations: [Multiple fractures of ribs, left side, sequela] 05-29-2024 Episodic Other fractures (14 sources) Closed fracture of multiple ribs; Translations: [Multiple fractures of ribs, left side, subsequent encounter for fracture with routine healing] Onset: 5 06-05-2024 Episodic Other fractures (20 sources) Compression fracture of vertebral column; Translations: [Wedge compression fracture of unspecified lumbar vertebra, initial encounter for closed fracture] 12-24-2024 Episodic Comment on above: T8, L1, are new and fx of L3 is old and she has had a kyphoplasty of L2 in the past. Other fractures (20 sources) Compression fracture of L2; Translations: [Wedge compression fracture of second lumbar vertebra, initial encounter for closed fracture] 12-25-2024 Episodic Other fractures (20 sources) Fracture of third lumbar vertebra; Translations: [Wedge compression fracture of third lumbar vertebra, initial encounter for closed fracture] 12-26-2024 Episodic Other fractures (20 sources) Burst fracture of lumbar vertebra; Translations: [Stable burst fracture of unspecified lumbar vertebra, initial encounter for closed fracture] 12-27-2024 Episodic Other fractures (4 sources) Fracture of multiple ribs ; Translations: [Multiple fractures of ribs, unspecified side, initial encounter for closed fracture] 05-01-2025 Episodic Other fractures (2 sources) Multiple fractures of ribs, left side, subsequent encounter for fracture with routine healing; Translations: [Multiple fractures of ribs, left side, subsequent encounter for fracture with routine healing] Onset: 5 Episodic Other fractures (1 source) Wedge compression fracture of third lumbar vertebra, sequela; Translations: [Wedge compression fracture of third lumbar vertebra, sequela] Onset: 5 Episodic Other fractures (1 source) Multiple fractures of ribs, unspecified side, initial encounter for closed fracture; Translations: [Multiple fractures of ribs, unspecified side, initial encounter for closed fracture] Onset: 5 Episodic Other fractures (1 source) Collapsed vertebra, not elsewhere classified, site unspecified, initial encounter for fracture; Translations: [Collapsed vertebra, not elsewhere classified, site unspecified, initial encounter for fracture] Onset: 5 Episodic Other gastrointestinal disorders (7 sources) Dysphagia; Translations: [Dysphagia, unspecified] Episodic Other gastrointestinal disorders (1 source) Abdominal distension, gaseous; Translations: [Abdominal distension (gaseous)] 05-22-2023 Episodic Other gastrointestinal disorders (1 source) Constipation; Translations: [Other constipation] 05-22-2023 Episodic Other hereditary and degenerative nervous system conditions (4 sources) Impaired cognition; Translations: [Mild cognitive impairment, so stated] 05-15-2025 Chronic Other hereditary and degenerative nervous system conditions (1 source) Mild cognitive impairment, so stated; Translations: [Mild cognitive impairment of uncertain or unknown etiology] Onset: 5 Chronic Other inflammatory condition of skin (2 sources) [...] larynx causing other injury, sequela] Episodic Other injuries and conditions due to external causes (13 sources) Hematoma; Translations: [Other injury of unspecified body region, initial encounter] Onset: 5 04-23-2025 Episodic Other injuries and conditions due to external causes (2 sources) Other injury of unspecified body region, initial encounter; Translations: [Other injury of unspecified body region, initial encounter] Onset: 5 Episodic Other lower respiratory disease (2 sources) Pulmonary fibrosis, unspecified; Translations: [Pulmonary fibrosis, unspecified] Onset: 7 Chronic Other lower respiratory disease (20 sources) Fibrosis of lung; Translations: [Pulmonary fibrosis, unspecified] Onset: 7 06-01-2017 Chronic Other lower respiratory disease (20 sources) Interstitial lung disease; Translations: [Interstitial pulmonary disease, unspecified] Onset: 4 12-28-2023 Chronic Other lower respiratory disease (5 sources) Solitary pulmonary nodule; Translations: [Shortness of breath] Onset: 7 Episodic Other lower respiratory disease (2 sources) Lung mass; Translations: [Lung nodule] 06-28-2017 Episodic Other lower respiratory disease (1 source) H/O: respiratory disease; Translations: [Personal history of other diseases of the respiratory system] 12-28-2023 Episodic Other lower respiratory disease (3 sources) Rib pain; Translations: [Pleurodynia] 04-22-2025 Episodic Other lower respiratory disease (4 sources) Hypoxemia; Translations: [Hypoxemia] 05-15-2025 Episodic Other lower respiratory disease (1 source) Hypoxemia; Translations: [Hypoxemia] Onset: 5 Episodic Other nervous system disorders (3 sources) Other chronic pain; Translations: [Chronic left-sided thoracic back pain] Onset: 4 Chronic Other nervous system disorders (20 sources) Walking disability; Translations: [Difficulty in walking, not elsewhere classified] 12-24-2024 Chronic Other nervous system disorders (4 sources) Chronic pain; Translations: [Other chronic pain] 05-01-2025 Chronic Other nervous system disorders (1 source) Chronic pain syndrome; Translations: [Chronic pain syndrome] Onset: 5 Chronic Other nervous system disorders (1 source) Difficulty in walking, not elsewhere classified; Translations: [Difficulty in walking, not elsewhere classified] Onset: 5 Chronic Other nervous system disorders (1 source) Abnormal gait; Translations: [Unspecified abnormalities of gait and mobility] 01-17-2024 Episodic Other non-traumatic joint disorders (5 sources) Pain in left shoulder; Translations: [Left shoulder pain] Onset: 5 05-06-2025 Episodic Other nutritional; endocrine; and metabolic disorders (20 sources) Obese class I; Translations: [Obesity, unspecified] Onset: 4 01-17-2024 Chronic Other nutritional; endocrine; and metabolic disorders (2 sources) Abnormal weight loss; Translations: [Abnormal weight loss] 05-22-2023 Episodic Other nutritional; endocrine; and metabolic disorders (20 sources) Body mass index 25-29 - overweight; Translations: [Overweight] 12-24-2024 Episodic Other skin disorders (1 source) Skin irritation ; Translations: [Other skin changes] 01-17-2024 Episodic Other upper respiratory disease (1 source) Bleeding from nose; Translations: [Epistaxis, recurrent] Episodic Other upper respiratory infections (2 sources) Viral upper respiratory tract infection; Translations: [Acute upper respiratory infection, unspecified] Episodic Pancreatic disorders (not diabetes) (3 sources) Cyst of pancreas; Translations: [Cyst of pancreas] 07-20-2023 Episodic Pathological fracture (7 sources) H/O: fragility fracture; Translations: [Personal history of (healed) other pathological fracture] Onset: 5 01-23-2025 Episodic Pulmonary heart disease (5 sources) Pulmonary hypertension; Translations: [Pulmonary hypertension, unspecified] Onset: 5 05-15-2025 Chronic Residual codes; unclassified (20 sources) Obstructive sleep apnea syndrome; Translations: [Obstructive sleep apnea (adult) (pediatric)] Onset: 7 06-01-2017 Chronic Residual codes; unclassified (4 sources) Sleep related hypoxemia; Translations: [Sleep related hypoventilation in conditions classified elsewhere] 05-15-2025 Chronic Residual codes; unclassified (1 source) Sleep related hypoventilation in conditions classified elsewhere; Translations: [Sleep related hypoventilation in conditions classified elsewhere] Onset: Chronic Residual codes; unclassified (20 sources) Activity of daily living (ADL) alteration; Translations: [Other specified health status] 12-24-2024 Episodic Residual codes; unclassified (20 sources) Unable to perform personal care activity; Translations: [Other specified health status] 12-24-2024 Episodic Residual codes; unclassified (20 sources) H/O Spinal surgery; Translations: [Other specified postprocedural states] 12-31-2024 Episodic Comment on above: L2 Residual codes; unclassified (3 sources) Postmenopausal state; Translations: [Asymptomatic menopausal state] 01-23-2025 Episodic Residual codes; unclassified (8 sources) At risk of osteoporotic fracture; Translations: [Other specified personal risk factors, not elsewhere classified] 01-23-2025 Episodic Screening or history of mental health and substance abuse (6 sources) Personal history of nicotine dependence; Translations: [Ex-cigarette smoker] Onset: 7 06-16-2023 Episodic Skin and subcutaneous tissue infections (5 sources) Cellulitis; Translations: [Cellulitis, unspecified] Onset: 5 05-15-2025 Episodic Spondylosis; intervertebral disc disorders; other back problems (20 sources) Cervical spondylosis; Translations: [Spondylosis without myelopathy or radiculopathy, cervical region] Onset: 2 Chronic Sprains and strains (1 source) Strain of muscle, fascia and tendon of lower back, initial encounter; Translations: [Strain of lumbar paraspinous muscle, initial encounter] Onset: 5 Episodic Substance-related disorders (1 source) Opioid dependence, uncomplicated; Translations: [Opioid type dependence, unspecified ([facility])] Onset: 4 Chronic Superficial injury; contusion (9 sources) Contusion of right knee; Translations: [Contusion of right knee, initial encounter] Onset: 5 04-22-2025 Episodic Unclassified (2 sources) Sleep apnea, unspecified; Translations: [Sleep apnea, unspecified] Onset: 7 Unclassified (7 sources) In 2 weeks, call for an appointment Unclassified (2 sources) referral sent office will call to make appointment Unclassified (2 sources) Dr Plasencia Unclassified (1 source) Traumatic subdural hemorrhage with loss of consciousness status unknown, initial encounter ([facility]); Translations: [Traumatic subdural hemorrhage with loss of consciousness status unknown, initial encounter ([facility])] Onset: 5 Unclassified (1 source) Age-related osteoporosis with current pathological fracture, other site, subsequent encounter for fracture with routine healing; Translations: [Age-related osteoporosis with current pathological fracture, other site, subsequent encounter for fracture with routine healing] Onset: 5 Unclassified (1 source) Traumatic subdural hemorrhage with loss of consciousness status unknown, initial encounter; Translations: [Traumatic subdural hemorrhage with loss of consciousness status unknown, initial encounter] Onset: 5 Unclassified (2 sources) Low back pain, unspecified; Translations: [Low back pain, unspecified] Onset: 5 Viral infection (12 sources) Herpes zoster; Translations: [Zoster without complications] 10-23-2023 Episodic Past or Other Problems Problem Classification Problem Date Documented Da te Episodic/Chronic Abdominal pain (3 sources) Epigastric pain; Translations: [Epigastric pain] Onset: 07-11-2024 07-10-2024 Episodic Acute and unspecified renal failure (20 sources) Acute renal failure syndrome; Translations: [Acute kidney failure, unspecified] Onset: 11-25-2024 11-19-2024 Episodic Diabetes mellitus without complication (3 sources) Hyperglycemia; Translations: [Hyperglycemia, unspecified] Onset: 11-06-2023 Episodic Other aftercare (1 source) Other shelter (current) drug therapy; Translations: [Medication management] Onset: 01-08-2024 Episodic Other bone disease and musculoskeletal deformities (1 source) Other specified disorders of bone density and structure, unspecified site; Translations: [Other specified disorders of bone density and structure, unspecified site] Onset: 02-03-2025 Episodic Other fractures (1 source) Multiple fractures of ribs, left side, sequela; Translations: [Closed fracture of multiple ribs of left side, sequela] Onset: 05-29-2024 Episodic Other fractures (1 source) Wedge compression fracture of unspecified lumbar vertebra, initial encounter for closed fracture; Translations: [Wedge compression fracture of unspecified lumbar vertebra, initial encounter for closed fracture] Onset: 02-03-2025 Episodic Other fractures (1 source) Wedge compression fracture of second lumbar vertebra, initial encounter for closed fracture; Translations: [Wedge compression fracture of second lumbar vertebra, initial encounter for closed fracture] Onset: 02-03-2025 Episodic Other fractures (1 source) Wedge compression fracture of third lumbar vertebra, initial encounter for closed fracture; Translations: [Wedge compression fracture of third lumbar vertebra, initial encounter for closed fracture] Onset: 02-03-2025 Episodic Other fractures (1 source) Stable burst fracture of unspecified lumbar vertebra, initial encounter for closed fracture; Translations: [Stable burst fracture of unspecified lumbar vertebra, initial encounter for closed fracture] Onset: 02-03-2025 Episodic Other fractures (1 source) Stable burst fracture of unspecified lumbar vertebra, subsequent encounter for fracture with delayed healing; Translations: [Stable burst fracture of unspecified lumbar vertebra, subsequent encounter for fracture with delayed healing] Onset: 02-03-2025 Episodic Other gastrointestinal disorders (20 sources) Chronic constipation; Translations: [Other constipation] Onset: 08-07-2023 05-22-2023 Episodic Other gastrointestinal disorders (1 source) Other constipation; Translations: [Chronic constipation] Onset: 08-07-2023 Episodic Other lower respiratory disease (20 sources) Idiopathic pulmonary fibrosis; Translations: [Idiopathic pulmonary fibrosis] Onset: 01-17-2024 Resolved: 09-12-2024 01-17-2024 Chronic Other lower respiratory disease (20 sources) Nodule of lung; Translations: [Solitary pulmonary nodule] Onset: 06-28-2017 06-28-2017 Episodic Comment on above: Right lung Other lower respiratory disease (20 sources) Restrictive [...] lung field] Onset: 06-16-2023 01-30-2024 Episodic Other nutritional; endocrine; and metabolic disorders (1 source) Overweight; Translations: [Overweight] Onset: 02-03-2025 Episodic Residual codes; unclassified (20 sources) Mild memory disturbance ; Translations: [Other amnesia] Onset: 01-17-2024 01-17-2024 Episodic Residual codes; unclassified (4 sources) Menopause present; Translations: [Asymptomatic menopausal state] Onset: 01-23-2025 09-17-2024 Episodic Residual codes; unclassified (1 source) Asymptomatic menopausal state; Translations: [Asymptomatic menopausal state] Onset: 01-23-2025 Episodic Residual codes; unclassified (2 sources) Other specified postprocedural states; Translations: [Other specified postprocedural states] Onset: 01-06-2025 Episodic Residual codes; unclassified (1 source) Other specified health status; Translations: [Other specified health status] Onset: 02-03-2025 Episodic Septicemia (except in labor) (20 sources) Septic shock; Translations: [Sepsis, unspecified organism] Onset: 11-25-2024 11-17-2024 Episodic Shock (20 sources) Shock; Translations: [Shock, unspecified] Onset: 11-25-2024 11-18-2024 Episodic Spondylosis; intervertebral disc disorders; other back problems (20 sources) Chronic low back pain; Translations: [Chronic midline low back pain without sciatica] Onset: 07-05-2022 Episodic Unclassified (20 sources) Abnormal findings on diagnostic imaging of other specified body structures; Translations: [Patient encounter status] Onset: 06-28-2017 Episodic Unclassified (1 source) Traumatic subdural hemorrhage with loss of consciousness status unknown, initial encounter ([facility]); Translations: [Traumatic subdural hemorrhage with loss of consciousness status unknown, initial encounter ([facility])] Onset: 04-22-2025 Urinary tract infections (20 sources) Acute cystitis; Translations: [Acute cystitis with hematuria] Onset: 02-03-2025 12-25-2024 Episodic Results Test Name Value Interpretation Reference Range Facility Office Visit Reporton 2024 Office Visit Report [facility] 36on 05-19-2025 36 Lesli called in t reva. Upon attempting to schedule delivery of Forteo, Lesli says she refuses daily injections and she was not willing to discuss with me further. Please advise on how you would like to proceed, thank you! Normal [facility] 36on 05-16-2025 36 [facility] has been unable to reach Lesli after 4 attempts. If you are able to reach her, please have her call us at [phone]. If we have not heard from her by 05/23, we will put her on hold in our system. Normal [facility] 36 Attempted to call virginia tilley to remind her of her appointment and ask about images. No one answered the phone and no option to leave a message. Normal [facility] Anion gap in Serum or Plasma Ordered By: Keerthi Son on 05-15-2025 Anion gap [Moles/Vol] 17 mmol/L High 01-02 [facility] BUN/creatinine ratioOrdered By: Keerthi Son on 05-15-2025 Urea nitrogen/Creatinine [Mass ratio] 34.1 mg/mg High 06-09 [facility] Basic Metabolic Profile (BMP )on 05-15-2025 BUN/CRE 34.1 RATIO High 06-09 [facility] Comment on above: Performed By: #### L [id number] ####[facility] [address] [place], [address] Calcium [Mass/Vol] 8.8 mg/dL Normal 7.6-11.0 [facility] Comment on above: Performed By: #### L [id number] ####[facility] [address] [place], [address] Chloride [Moles/Vol] 104 mmol/L Normal 98-108 [facility] Comment on above: Performed By: #### L [id number] ####[facility] [address] [place], [address] CO2 [Moles/Vol] 22.0 mmol/L Normal 21.0-32.0 [facility] Comment on above: Performed By: #### L [id number] ####[facility] [address] [place], [address] Creatinine [Mass/Vol] 0.56 mg/dL Low 0.70-1.20 [facility] Comment on above: Performed By: #### L [id number] ####[facility] [address] [place], [address] ECRCL 43.55 ml/min Low 50-250 [facility] Comment on above: Performed By: #### L [id number] ####[facility] [address] [place], [address] GAP 17 High 5-15 [facility] Comment on above: Performed By: #### L [id number] ####[facility] [address] [place], [address] GFR/1.73 sq M.predicted among non-blacks MDRD (S/P/Bld) [Vol rate/Area] 90 mL/min/{1.73_m2} Normal >60 [facility] Comment on above: Result Comment: mL/m in/1.73m2 CKD-EPI Creatinine Equation (2020) Performed By: #### L [id number] ####[facility] [address] [place], [address] Glucose [Mass/Vol] 104 mg/dL High 70-99 [facility] Comment on above: Performed By: #### L [id number] ####[facility] [address] [place], [address] Potassium [Moles/Vol] 3.6 mmol/L Normal 3.3-5.1 [facility] Comment on above: Performed By: #### L [id number] ####[facility] [address] [place], [address] Sodium [Moles/Vol] 143 mmol/L Normal 133-145 [facility] Comment on above: Performed By: #### L [id number] ####[facility] [address] [place], [address] Urea nitrogen [Mass/Vol] 19 mg/dL Normal 4-19 [facility] Comment on above: Performed By: #### L [id number] ####[facility] [address] [place], [address] Carbon dioxide, total [Moles /volume] in Central venous bloodOrdered By: Keerthi Son on 05-15-2025 CO2 [Moles/Vol] 22.0 mmol/L 21.0-32.0 [facility] Chloride assayOrdered By: Haylee Son on 05-15-2025 Chloride [Moles/Vol] 104 mmol/L 98-108 [facility] Glomerular filtration rate ( GFR) estimation/1.73 sq m using serum, plasma, or whole bOrdered By: Keerthi Son on 05-15-2025 GFR/1.73 sq M.predicted among non-blacks MDRD (S/P/Bld) [Vol rate/Area] 90 mL/min/{1.73_m2} >60 [facility] Comment on above: mL/min/1.73m2 CKD-EP I Creatinine Equation (2020) Potassium measurement (mass/ volume)Ordered By: Keerthi Cagleherminia on 05-15-2025 Potassium (Unsp spec) [Mass/Vol] 3.6 mmol/L 3.3-5.1 [facility] Serum creatinine measurement (mass/volume)Ordered By: Keerthi Adelaida on 05-15-2025 Creatinine [Mass/Vol] 0.56 mg/dL Low 0.70-1.20 [facility] Serum glucose measurement (m ass/volume)Ordered By: Keerthi Son on 05-15-2025 Glucose [Mass/Vol] 104 mg/dL High 70-99 [facility] Serum or plasma calcium azael urement (mass/volume)Ordered By: Keerthi Son on 05-15-2025 Calcium [Mass/Vol] 8.8 mg/dL 7.6-11.0 [facility] Serum or plasma urea nitroge n measurement (mass/volume)Ordered By: Keerthi Son on 05-15-2025 Urea nitrogen [Mass/Vol] 19 mg/dL 4-19 [facility] Sodium levelOrdered By: Keerthi Son on 05-15-2025 Sodium [Moles/Vol] 143 mmol/L 133-145 [facility] 36on 05-14-2025 36 Name of Caller: Tommy brewer ([facility]) Contact Reason for Appointment: Zayra called in requesting to schedule patient a hospital follow up as patient will be discharged on 05/16/25. Please be advised Office Name: [facility] Neuroscience Normal [facility] Assessment of wrist artery p atency prior to arterial punctureOrdered By: Keerthi Son on 05-14-2025 Arterial patency Wrist artery --pre arterial puncture Positive [facility] Basic Metabolic Profile (BMP )on 05-14-2025 BUN/CRE 61.9 RATIO High 10-20 [facility] Comment on above: Performed By: #### L 500.2500, L100.0500, L501.5200 ####[facility] [address] [place], [address] Calcium [Mass/Vol] 9.0 mg/dL Normal 7.6-11.0 [facility] Comment on above: Performed By: #### L 500.2500, L100.0500, L501.5200 ####[facility] [address] [place], [address] Chloride [Moles/Vol] 103 mmol/L Normal 98-108 [facility] Comment on above: Performed By: #### L 500.2500, L100.0500, L501.5200 ####[facility] [address] [place], [address] CO2 [Moles/Vol] 33.4 mmol/L High 21.0-32.0 [facility] Comment on above: Performed By: #### L 500.2500, L100.0500, L501.5200 ####[facility] [address] [place], [address] Creatinine [Mass/Vol] 0.47 mg/dL Low 0.70-1.20 [facility] Comment on above: Performed By: #### L 500.2500, L100.0500, L501.5200 ####[facility] [address] [place], [address] ECRCL 44.08 ml/min Low 50-250 [facility] Comment on above: Performed By: #### L 500.2500, L100.0500, L501.5200 ####[facility] [address] [place], [address] GAP 6 Normal 5-15 [facility] Comment on above: Performed By: #### L 500.2500, L100.0500, L501.5200 ####[facility] [address] [place], [address] GFR/1.73 sq M.predicted among non-blacks MDRD (S/P/Bld) [Vol rate/Area] 94 mL/min/{1.73_m2} Normal >60 [facility] Comment on above: Result Comment: mL/m in/1.73m2 CKD-EPI Creatinine Equation (2020) Performed By: #### L 500.2500, L100.0500, L501.5200 ####[facility] [address] [place], [address] Glucose [Mass/Vol] 76 mg/dL Normal 70-99 [facility] Comment on above: Performed By: #### L 500.2500, L100.0500, L501.5200 ####[facility] [address] [place], [address] Potassium [Moles/Vol] 3.9 mmol/L Normal 3.3-5.1 [facility] Comment on above: Performed By: #### L 500.2500, L100.0500, L501.5200 ####[facility] [address] [place], [address] Sodium [Moles/Vol] 142 mmol/L Normal 133-145 [facility] Comment on above: Performed By: #### L 500.2500, L100.0500, L501.5200 ####[facility] [address] [place], [address] Urea nitrogen [Mass/Vol] 29 mg/dL High 4-19 [facility] Comment on above: Performed By: #### L 500.2500, L100.0500, L501.5200 ####[facility] [address] [place], [address] Blood Gases by [facility] 025 CASSANDRA TEST Positive Normal [facility] Comment on above: Performed By: #### L 9000.0800 ####[facility] [address] [place], [address] Base excess Calc (Bld) [Moles/Vol] 13 mmol/L High -2 to +2 [facility] Comment on above: Performed By: #### L 9000.0800 ####[facility] [address] [place], [address] Blood Gas Type ART Normal [facility] Comment on above: Performed By: #### L 8999.0800 ####[facility] [address] [place], [address] CO2 [Moles/Vol] 39 mmol/L Normal [facility] Comment on above: Performed By: #### L 8999.0800 ####[facility] [address] [place], [address] FI02 1.0 Normal [facility] Comment on above: Performed By: #### L 8999.0800 ####[facility] [address] [place], [address] HCO3 (Bld) [Moles/Vol] 37.2 mmol/L High 22-26 [facility] Comment on above: Performed By: #### L 8999.0800 ####[facility] [address] [place], [address] Mode Not entered Normal [facility] Comment on above: Performed By: #### L 8999.08 ####[facility] [address] [place], [address] O2 Delivery Dev Cannula Normal [facility] Comment on above: Performed By: #### L 8999.0800 ####[facility] [address] [place], [address] pCO2 54.0 mmHg High 35-45 [facility] Comment on above: Performed By: #### L 8999.0800 ####[facility] [address] [place], [address] pH (Bld) 7.45 [pH] Normal 7.35-7.45 [facility] Comment on above: Performed By: #### L 8999.0800 ####[facility] [address] [place], [address] PO2 83 mmHG Normal 75-100 [facility] Comment on above: Performed By: #### L 9000.0800 ####[facility] [address] [place], [address] SITE R Radial Normal [facility] Comment on above: Performed By: #### L 9000.0800 ####[facility] [address] [place], [address] SO2 96 Normal 95-99 [facility] Comment on above: Performed By: #### L 9000.0800 ####[facility] [address] [place], [address] Blood base excess determinat ionOrdered By: Keerthi Son on 05-14-2025 Base excess Calc (BldV) [Moles/Vol] 13 mmol/L High -2-2 [facility] Blood bicarbonate measuremen tOrdered By: Keerthi Son on 05-14-2025 HCO3 (Bld) [Moles/Vol] 37.2 mmol/L High 22-26 [facility] CBC-Complete Blood Cnt No Di ffon 05-14-2025 Erythrocyte distribution width (RBC) [Ratio] 15.3 % High 11.6-14.6 [facility] Comment on above: Performed By: #### L 500.2500, L100.0500, L501.5200 ####[facility] [address] [place], [address] Hematocrit (Bld) [Volume fraction] 37.7 % Normal 37-47 [facility] Comment on above: Performed By: #### L 500.2500, L100.0500, L501.5200 ####[facility] [address] [place], [address] Hemoglobin (Bld) [Mass/Vol] 11.9 g/dL Low 12.0-15.0 [facility] Comment on above: Performed By: #### L 500.2500, L100.0500, L501.5200 ####[facility] [address] [place], [address] MCH (RBC) [Entitic mass] 33.6 pg High 27.0-32.0 [facility] Comment on above: Performed By: #### L 500.2500, L100.0500, L501.5200 ####[facility] [address] [place], [address] MCHC (RBC) [Mass/Vol] 31.6 g/dL Low 32-36 [facility] Comment on above: Performed By: #### L 500.2500, L100.0500, L501.5200 ####[facility] [address] [place], [address] MCV (RBC) [Entitic vol] 106.5 fL High 81-99 [facility] Comment on above: Performed By: #### L 500.2500, L100.0500, L501.5200 ####[facility] [address] [place], [address] Platelet mean volume (Bld) [Entitic vol] 10.4 fL Normal 6.2-12.0 [facility] Comment on above: Performed By: #### L 500.2500, L100.0500, L501.5200 ####[facility] [address] [place], [address] Platelets (Bld) [#/Vol] 216 10*3/uL Normal 150-450 [facility] Comment on above: Performed By: #### L 500.2500, L100.0500, L501.5200 ####[facility] [address] [place], [address] RBC (Bld) [#/Vol] 3.54 10*6/uL Low 4.2-5.4 [facility] Comment on above: Performed By: #### L 500.2500, L100.0500, L501.5200 ####[facility] [address] [place], [address] RDW SD 60.6 fl High 35.1-43.9 [facility] Comment on above: Performed By: #### L 500.2500, L100.0500, L501.5200 ####[facility] [address] [place], [address] WBC (Bld) [#/Vol] 5.9 10*3/uL Normal 4.4-11.0 [facility] Comment on above: Performed By: #### L 500.2500, L100.0500, L501.5200 ####[facility] [address] [place], [address] Chest PA and Lateralon 05-14 Chest PA and Lateral Normal [facility] Erythrocyte distribution wid th ratioOrdered By: Keerthi Cagleherminia on 05-14-2025 Erythrocyte distribution width (RBC) [Ratio] 15.3 % High 11.6-14.6 [facility] Erythrocyte distribution wid th standard deviationOrdered By: Keerthi Adelaida on 05-14-2025 Erythrocyte distribution width (RBC) [Ratio] 60.6 fl High 35.1-43.9 [facility] Hematocrit Auto (Bld) [Volum e fraction]Ordered By: Keerthi Son on 05-14-2025 Hematocrit (Bld) [Volume fraction] 37.7 % 37-47 [facility] Hemoglobin measurementOrdere d By: Keerthi Adelaida on 05-14-2025 Hemoglobin (Bld) [Mass/Vol] 11.9 g/dL Low 12.0-15.0 [facility] MCV (mean corpuscular volume ) determinationOrdered By: Keerthi Son on 05-14-2025 MCV (RBC) [Entitic vol] 106.5 fL High 81-99 [facility] Magnesiumon 05-14-2025 Magnesium [Mass/Vol] 2.3 mg/dL High 1.5-2.2 [facility] Comment on above: Performed By: #### L 500.2500, L100.0500, L501.5200 ####[facility] [address] [place], [address] Magnesium measurement (mass/ volume)Ordered By: Keerthi Son on 05-14-2025 Magnesium (Unsp spec) [Mass/Vol] 2.3 mg/dL High 1.5-2.2 [facility] Mean corpuscular hemoglobin (MCH) determinationOrdered By: Keerthi Son on 05-14-2025 MCH (RBC) [Entitic mass] 33.6 pg High 27.0-32.0 [facility] Mean corpuscular hemoglobin concentration (MCHC) determinationOrdered By: Keerthi Son on 05-14-2025 MCHC (RBC) [Mass/Vol] 31.6 g/dL Low 32-36 [facility] Mean platelet volume determi nationOrdered By: Keerthi Son on 05-14-2025 Platelet mean volume (Bld) [Entitic vol] 10.4 fL 6.2-12.0 [facility] Measurement, pHOrdered By: Yanely Son on 05-14-2025 pH (Unsp spec) 7.45 [pH] 7.35-7.45 [facility] Natriuretic peptide.B prohor sanaz N-Terminal [Mass/volume] in Serum or PlasmaOrdered By: Keerthi Son on 05-14-2025 Natriuretic peptide.B prohormone N-Terminal [Mass/Vol] 1718 pg/mL <1800 [facility] Comment on above: Heart Failure Unlike ly: < 300 pg/mLHeart Failure Likely< 50 Years: > 450 pg/mL50-75 Years: > 900 pg/mL>75 Years: > 1800 pg/mL No Panel InformationOrdered By: Keerthi Son on 05-14-2025 Blood Gas Sample Site R Radial [facility] Blood Gas Specimen Type ART [facility] Blood Gas Vent Mode Not entered [facility] Oxygen Delivery Device Cannula [facility] Platelet countOrdered By: Haylee Son on 05-14-2025 Platelets (Bld) [#/Vol] 216 10*3/uL 150-450 [facility] Pro- Brain NATRIURETIC PEPTI Wendy 05-14-2025 Natriuretic peptide B (Bld) [Mass/Vol] 1718 pg/mL Normal <=1800 [facility] Comment on above: Result Comment: Hear t Failure Unlikely: < 300 pg/mLHeart Failure Likely< 50 Years: > 450 pg/mL50-75 Years: > 900 pg/mL>75 Years: > 1800 pg/mL Performed By: #### L 503.7505 ####[facility] [address] [place], [address] RBC Auto (Bld) [#/Vol]Ordere d By: Keerthi Adelaida on 05-14-2025 RBC (Bld) [#/Vol] 3.54 10*6/uL Low 4.2-5.4 [facility] Total carbon dioxide measure mentOrdered By: Keerthi Son on 05-14-2025 CO2 [Moles/Vol] 39 mmol/L [facility] Venous Duplex US - Marck Extre mon 05-14-2025 Venous Duplex US - Marck Extrem Normal [facility] Venous duplex ultrasound rep ortOrdered By: Justin Coelho on 05-14-2025 US Vein [facility] [address] [place] [address] Venous Duplex US - Marck Extrem 05/14/25 1512 MR#: [id number] Acct: [id number] Name: LESLI ROSALES Rep #:[id number] : 1940 85 From: Justin Coelho MD Attending Dr: Dr. Keerthi Son DO Status: ADM IN Ordering Dr: Keerthi Son DO Date: 05/14/25 Location: Sex: F C Admitted: 04/29/25 Reason For Study Reason For Study: Bilateral leg swelling RIGHT LEFT GSV is normal. GSV is normal. CFV is compressible, spontaneous, phasic, competent CFV is compressible, spontaneous, phasic, competent, and demonstrates normal augmentation. and demonstrates normal augmentation. FV is compressible, spontaneous, phasic, competent FV is compressible, spontaneous, phasic, competent and demonstrates normal augmentation. and demonstrates normal augmentation. PopV not visualized due to bandage. POP V is compressible, spontaneous, phasic, competent T/P Trunk is compressible. Normal venous flow noted and demonstrates normal augmentation. with augmentation. T/P Trunk is compressible. PTV is compressible. PTV is compressible. RT PerV is compressible. LT PerV is compressible. Procedure This is a venous duplex using B-mode, color flow and spectral Doppler. Exam performed portable in patient room. A preliminary report was called and/or faxed to Dr. Son. VL/Venous Duplex US - Marck Extrem Interpretation Summary Deep veins of the lower extremities are bilaterally patent and compressible segmentally. There is no evidence of deep vein thrombosis on either side. Valvular competence appears intact within the proximal deep venous systems bilaterally. The great saphenous veins appear bilaterally patent and compressible segmentally. The right popliteal vein was not visualized due to the presence of a bandage. Ordering Physician: Keerthi Son Referring Physician: Marty Guthrie Performed By: Jeanie Zamarripa RVT 05/14/251802 Date _ Justin Coelho MD CC: Dr. Keerthi Son, DO; Dr. Marty Guthrie MD ~ Date Dictated: 05/14/25 1512 Date Transcribed: 05/14/251802 Coat Baster: Signed [facility] Other Phone: White blood cell (WBC) count Ordered By: Keerthi Son on 05-14-2025 WBC (Bld) [#/Vol] 5.9 10*3/uL 4.4-11.0 [facility] Basic Metabolic Profile (BMP )on 05-12-2025 BUN/CRE 54.1 RATIO High 10-20 [facility] Comment on above: Performed By: #### L 500.2500 ####[facility] [address] [place], [address] Calcium [Mass/Vol] 8.8 mg/dL Normal 7.6-11.0 [facility] Comment on above: Performed By: #### L 500.2500 ####[facility] [address] [place], [address] Chloride [Moles/Vol] 104 mmol/L Normal 98-108 [facility] Comment on above: Performed By: #### L 500.2500 ####[facility] [address] [place], [address] CO2 [Moles/Vol] 31.8 mmol/L Normal 21.0-32.0 [facility] Comment on above: Performed By: #### L 500.2500 ####[facility] [address] [place], [address] Creatinine [Mass/Vol] 0.38 mg/dL Low 0.70-1.20 [facility] Comment on above: Performed By: #### L 500.2500 ####[facility] [address] [place], [address] ECRCL 44.48 ml/min Low 50-250 [facility] Comment on above: Performed By: #### L 500.2500 ####[facility] [address] [place], [address] GAP 7 Normal 5-15 [facility] Comment on above: Performed By: #### L 500.2500 ####[facility] [address] [place], [address] GFR/1.73 sq M.predicted among non-blacks MDRD (S/P/Bld) [Vol rate/Area] 99 mL/min/{1.73_m2} Normal >60 [facility] Comment on above: Result Comment: mL/m in/1.73m2 CKD-EPI Creatinine Equation (2020) Performed By: #### L 500.2500 ####[facility] [address] [place], [address] Glucose [Mass/Vol] 78 mg/dL Normal 70-99 [facility] Comment on above: Performed By: #### L 500.2500 ####[facility] [address] [place], [address] Potassium [Moles/Vol] 3.5 mmol/L Normal 3.3-5.1 [facility] Comment on above: Performed By: #### L 500.2500 ####[facility] [address] [place], [address] Sodium [Moles/Vol] 143 mmol/L Normal 133-145 [facility] Comment on above: Performed By: #### L 500.2500 ####[facility] [address] [place], [address] Urea nitrogen [Mass/Vol] 21 mg/dL High - [facility] Comment on above: Performed By: #### L 500.2500 ####[facility] [address] [place], [address] Basic Metabolic Profile (BMP )on 05-10-2025 BUN/CRE 50.6 RATIO High - [facility] Comment on above: Performed By: #### L 506.1001, L500.2500 ####[facility] [address] [place], [address] Calcium [Mass/Vol] 8.7 mg/dL Normal 7.6-11.0 [facility] Comment on above: Performed By: #### L 506.1001, L500.2500 ####[facility] [address] [place], [address] Chloride [Moles/Vol] 103 mmol/L Normal 98-108 [facility] Comment on above: Performed By: #### L 506.1001, L500.2500 ####[facility] [address] [place], [address] CO2 [Moles/Vol] 30.2 mmol/L Normal 21.0-32.0 [facility] Comment on above: Performed By: #### L 506.1001, L500.2500 ####[facility] [address] [place], [address] Creatinine [Mass/Vol] 0.39 mg/dL Low 0.70-1.20 [facility] Comment on above: Performed By: #### L 506.1001, L500.2500 ####[facility] [address] [place], [address] ECRCL 44.50 ml/min Low 50-250 [facility] Comment on above: Performed By: #### L 506.1001, L500.2500 ####[facility] [address] [place], [address] GAP 8 Normal 5-15 [facility] Comment on above: Performed By: #### L 506.1001, L500.2500 ####[facility] [address] [place], [address] GFR/1.73 sq M.predicted among non-blacks MDRD (S/P/Bld) [Vol rate/Area] 98 mL/min/{1.73_m2} Normal >60 [facility] Comment on above: Result Comment: mL/m in/1.73m2 CKD-EPI Creatinine Equation (2020) Performed By: #### L 506.1001, L500.2500 ####[facility] [address] [place], [address] Glucose [Mass/Vol] 72 mg/dL Normal 70-99 [facility] Comment on above: Performed By: #### L 506.1001, L500.2500 ####[facility] [address] [place], [address] Potassium [Moles/Vol] 3.9 mmol/L Normal 3.3-5.1 [facility] Comment on above: Performed By: #### L 506.1001, L500.2500 ####[facility] [address] [place], [address] Sodium [Moles/Vol] 141 mmol/L Normal 133-145 [facility] Comment on above: Performed By: #### L 506.1001, L500.2500 ####[facility] [address] [place], [address] Urea nitrogen [Mass/Vol] 20 mg/dL High - [facility] Comment on above: Performed By: #### L 506.1001, L500.2500 ####[facility] [address] [place], [address] Vitamin D,25 Hydroxyon 05-10 Vitamin D 25-OH 25.6 ng/mL Low 30-100 [facility] Comment on above: Result Comment: Estephania min D StatusDeficiency: <20 ng/mL (50nmol/L)Insufficiency: 20-30 ng/mL (50-75 nmol/L)Sufficiency: 30-100 ng/mL (75-250 nmol/L)Toxicity: >100 ng/mL (>250 nmol/L) Performed By: #### L 506.1001, L500.2500 ####[facility] [address] [place], [address] Basic Metabolic Profile (BMP )on 05-08-2025 BUN Normal - [facility] Comment on above: Result Comment: Deepa casey via OM: Ordered Performed By: #### L 500.2500, L100.0500 ####[facility] [address] [place], [address] BUN/CRE Normal 10-20 [facility] Comment on above: Result Comment: Canc elled via OM: MD Ordered Performed By: #### L 500.2500, L100.0500 ####[facility] [address] [place], [address] Calcium Normal 7.6-11.0 [facility] Comment on above: Result Comment: Canc elled via OM: MD Ordered Performed By: #### L 500.2500, L100.0500 ####[facility] [address] [place], [address] CL Normal 98-108 [facility] Comment on above: Result Comment: Canc elled via OM: MD Ordered Performed By: #### L 500.2500, L100.0500 ####[facility] [address] [place], [address] CO2 Normal 21.0-32.0 [facility] Comment on above: Result Comment: Canc elled via OM: MD Ordered Performed By: #### L 500.2500, L100.0500 ####[facility] [address] [place], [address] CREAT,SERUM Normal 0.70-1.20 [facility] Comment on above: Result Comment: Canc elled via OM: MD Ordered Performed By: #### L 500.2500, L100.0500 ####[facility] [address] [place], [address] eGFR Normal >60 [facility] Comment on above: Result Comment: Canc elled via OM: MD Ordered Performed By: #### L 500.2500, L100.0500 ####[facility] [address] [place], [address] GAP Normal 5-15 [facility] Comment on above: Result Comment: Canc elled via OM: MD Ordered Performed By: #### L 500.2500, L100.0500 ####[facility] [address] [place], [address] GLU Normal 70-99 [facility] Comment on above: Result Comment: Canc elled via OM: MD Ordered Performed By: #### L 500.2500, L100.0500 ####[facility] [address] [place], [address] Potassium Normal 3.3-5.1 [facility] Comment on above: Result Comment: Canc elled via OM: MD Ordered Performed By: #### L 500.2500, L100.0500 ####[facility] [address] [place], [address] Basic Metabolic Profile (BMP) Normal 133-145 [facility] Comment on above: Result Comment: Canc elled via OM: MD Ordered Performed By: #### L 500.2500, L100.0500 ####[facility] [address] [place], [address] CBC-Complete Blood Cnt No Di ffon 05-08-2025 HCT Normal 37-47 [facility] Comment on above: Result Comment: Canc elled via OM: MD Ordered Performed By: #### L 500.2500, L100.0500 ####[facility] [address] [place], [address] HGB Normal 12.0-15.0 [facility] Comment on above: Result Comment: Canc elled via OM: MD Ordered Performed By: #### L 500.2500, L100.0500 ####[facility] [address] [place], [address] MCH Normal 27.0-32.0 [facility] Comment on above: Result Comment: Canc elled via OM: MD Ordered Performed By: #### L 500.2500, L100.0500 ####[facility] [address] [place], [address] MCHC Normal 32-36 [facility] Comment on above: Result Comment: Canc elled via OM: MD Ordered Performed By: #### L 500.2500, L100.0500 ####[facility] [address] [place], [address] MCV Normal 81-99 [facility] Comment on above: Result Comment: Canc elled via OM: MD Ordered Performed By: #### L 500.2500, L100.0500 ####[facility] [address] [place], [address] PLT Normal 150-450 [facility] Comment on above: Result Comment: Canc elled via OM: MD Ordered Performed By: #### L 500.2500, L100.0500 ####[facility] [address] [place], [address] RBC Normal 4.2-5.4 [facility] Comment on above: Result Comment: Canc elled via OM: MD Ordered Performed By: #### L 500.2500, L100.0500 ####[facility] [address] [place], [address] RDW CV Normal 11.6-14.6 [facility] Comment on above: Result Comment: Canc elled via OM: MD Ordered Performed By: #### L 500.2500, L100.0500 ####[facility] [address] [place], [address] RDW SD Normal 35.1-43.9 [facility] Comment on above: Result Comment: Canc elled via OM: MD Ordered Performed By: #### L 500.2500, L100.0500 ####[facility] [address] [place], [address] WBC Normal 4.4-11.0 [facility] Comment on above: Result Comment: Canc elled via OM: MD Ordered Performed By: #### L 500.2500, L100.0500 ####[facility] [address] [place], [address] Absolute lymphocyte countOrd ered By: Keerthi Son on 05-07-2025 Lymphocytes Auto (Unsp spec) [#/Vol] 2.69 10*3/uL 0.83-4.51 [facility] Absolute neutrophil countOrd ered By: Keerthi Son on 05-07-2025 Neutrophils (Bld) [#/Vol] 4.8 10*3/uL 2.0-7.7 [facility] Automated lymphocyte count a s percentage of total leukocytesOrdered By: Keerthi Son on 05-07-2025 Lymphocytes/100 WBC Auto (Unsp spec) 31.6 % 19-41 [facility] Basic Metabolic Profile (BMP )on 05-07-2025 BUN/CRE 58.0 RATIO High 10- [facility] Comment on above: Result Comment: AMENDED REPORT 05/07/25803 BUN/CRE previously reported as: 57.7 H RATIO Performed By: #### L 500.2500, L100.0100, L503.7505 ####[facility] [address] [place], [address] Urea nitrogen [Mass/Vol] 23 mg/dL High 4- [facility] Comment on above: Result Comment: AMENDED REPORT 05/07/25803 BUN previously reported as: 22 H mg/dL Performed By: #### L 500.2500, L100.0100, L503.7505 ####[facility] [address] [place], [address] Basophil percentageOrdered B y: Keerthi Son on 05-07-2025 Basophils/100 WBC (Bld) 0.8 % 0-1 [facility] CBC W/Diff, Automatedon 04-21 Absolute Lymph 2.69 X10 3/uL Normal 0.83-4.51 [facility] Comment on above: Performed By: #### L 500.2500, L100.0100, L503.7505 ####[facility] [address] [place], [address] Absolute Neut 4.8 X10 3/uL Normal 2.0-7.7 [facility] Comment on above: Performed By: #### L 500.2500, L100.0100, L503.7505 ####[facility] [address] [place], [address] Basophils/100 WBC (Bld) 0.8 % Normal 0-1 [facility] Comment on above: Performed By: #### L 500.2500, L100.0100, L503.7505 ####[facility] [address] [place], [address] Eosinophils/100 WBC (Bld) 1.9 % Normal 0-5 [facility] Comment on above: Performed By: #### L 500.2500, L100.0100, L503.7505 ####[facility] [address] [place], [address] Erythrocyte distribution width (RBC) [Ratio] 14.7 % High 11.6-14.6 [facility] Comment on above: Performed By: #### L 500.2500, L100.0100, L503.7505 ####[facility] [address] [place], [address] Hematocrit (Bld) [Volume fraction] 40.5 % Normal 37-47 [facility] Comment on above: Performed By: #### L 500.2500, L100.0100, L503.7505 ####[facility] [address] [place], [address] Hemoglobin (Bld) [Mass/Vol] 12.7 g/dL Normal 12.0-15.0 [facility] Comment on above: Performed By: #### L 500.2500, L100.0100, L503.7505 ####[facility] [address] [place], [address] IG% 0.500 Normal 0.0-0.9 [facility] Comment on above: Result Comment: IG% - Immature Granulocytes (promyelocytes, myelocytes andmetamyelocytes) > 1% indicates that a LEFT SHIFT is Present. Performed By: #### L 500.2500, L100.0100, L503.7505 ####[facility] [address] [place], [address] Lymphocytes/100 WBC (Bld) 31.6 % Normal 19-41 [facility] Comment on above: Performed By: #### L 500.2500, L100.0100, L503.7505 ####[facility] [address] [place], [address] MCH (RBC) [Entitic mass] 33.4 pg High 27.0-32.0 [facility] Comment on above: Performed By: #### L 500.2500, L100.0100, L503.7505 ####[facility] [address] [place], [address] MCHC (RBC) [Mass/Vol] 31.4 g/dL Low 32-36 [facility] Comment on above: Performed By: #### L 500.2500, L100.0100, L503.7505 ####[facility] [address] [place], [address] MCV (RBC) [Entitic vol] 106.6 fL High 81-99 [facility] Comment on above: Performed By: #### L 500.2500, L100.0100, L503.7505 ####[facility] [address] [place], [address] Monocytes/100 WBC (Bld) 8.7 % Normal 0-10 [facility] Comment on above: Performed By: #### L 500.2500, L100.0100, L503.7505 ####[facility] [address] [place], [address] Neutrophils/100 WBC (Bld) 56.5 % Normal 47-70 [facility] Comment on above: Performed By: #### L 500.2500, L100.0100, L503.7505 ####[facility] [address] [place], [address] Nucleated RBC (Bld) [#/Vol] 0 10*3/uL Normal 0-5 [facility] Comment on above: Performed By: #### L 500.2500, L100.0100, L503.7505 ####[facility] [address] [place], [address] Platelet mean volume (Bld) [Entitic vol] 10.3 fL Normal 6.2-12.0 [facility] Comment on above: Performed By: #### L 500.2500, L100.0100, L503.7505 ####[facility] [address] [place], [address] Platelets (Bld) [#/Vol] 309 10*3/uL Normal 150-450 [facility] Comment on above: Performed By: #### L 500.2500, L100.0100, L503.7505 ####[facility] [address] [place], [address] RBC (Bld) [#/Vol] 3.80 10*6/uL Low 4.2-5.4 [facility] Comment on above: Performed By: #### L 500.2500, L100.0100, L503.7505 ####[facility] [address] [place], [address] RDW SD 57.8 fl High 35.1-43.9 [facility] Comment on above: Performed By: #### L 500.2500, L100.0100, L503.7505 ####[facility] [address] [place], [address] WBC (Bld) [#/Vol] 8.5 10*3/uL Normal 4.4-11.0 [facility] Comment on above: Performed By: #### L 500.2500, L100.0100, L503.7505 ####[facility] [address] [place], [address] Eosinophil percentageOrdered By: Keerthi Son on 05-07-2025 Eosinophils/100 WBC (Bld) 1.9 % 0-5 [facility] Immature granulocytes/100 WB C Auto (Bld)Ordered By: Keerthi Son on 05-07-2025 Immature granulocytes/100 WBC (Bld) 0.500 % 0.0-0.9 [facility] Comment on above: IG% - Immature Granu locytes (promyelocytes, myelocytes and metamyelocytes) > 1% indicates that a LEFT SHIFT is Present. Monocyte percentageOrdered B y: Keerthi Son on 05-07-2025 Monocytes/100 WBC (Bld) 8.7 % 0-10 [facility] Neutrophil percentageOrdered By: [facility] on 05-07-2025 Neutrophils/100 WBC (Bld) 56.5 % 47-70 [facility] Nucleated red blood cell per centageOrdered By: Keerthi Son on 05-07-2025 Nucleated RBC/100 WBC (Bld) [Ratio] 0 % 0-5 [facility] Pro- Brain NATRIURETIC PEPTI Wendy 05-07-2025 Natriuretic peptide B (Bld) [Mass/Vol] 1637 pg/mL Normal <=1800 [facility] Comment on above: Result Comment: Hear t Failure Unlikely: < 300 pg/mLHeart Failure Likely< 50 Years: > 450 pg/mL50-75 Years: > 900 pg/mL>75 Years: > 1800 pg/mL Performed By: #### L 500.2500, L100.0100, L503.7505 ####[facility] [address] [place], [address] [id number] 05-06-2025 [id number] Patient Choice Patient Name: LESLI ROSALES Date of : 1940 [facility] 36on 05-06-2025 36 FYI after some back and forth with insurance, [place] has finally been approved. Rx is already on file. [facility] will reach out shortly to schedule delivery for patient. Thanks! Normal [facility] Chest PA and Lateralon 05-06 Chest PA and Lateral Normal [facility] Culture, Anaerobic Any Sourc nory 05-05-2025 CUAN right knee No growth in 5 days. [facility] Comment on above: Performed By: #### M 100.2000, M100.3000, M100.4001 ####[facility] [address] [place], [address] Wound Cultureon 05-03-2025 [facility] Comment on above: Performed By: #### M 100.1999, M100.3000, M100.4001 ####[facility] [address] [place], [address] 36on 05-01-2025 36 Reached out to pt, n o answer. VM not set up, cannot LMTCO [facility] Gram Stainon 05-01-2025 GS right knee Gram Stain 4+ Red Blood Cells No White Blood Cells No Epithelial cells No organisms seen [facility] Comment on above: Performed By: #### M 100.2000, M100.3000, M100.4001 ####[facility] [address] [place], [address] Anaerobic cultureOrdered By: Keerthi Son on 04-30-2025 Bacteria identified Anaer cx Nom (Unsp spec) No growth in 5 days. [facility] Basic Metabolic Profile (BMP )on 04-30-2025 BUN/CRE 51.2 RATIO High 10-20 [facility] Comment on above: Performed By: #### L 501.2300, L501.5200, L100.0100, L500.2500 ####[facility] [address] [place], [address] Calcium [Mass/Vol] 9.6 mg/dL Normal 7.6-11.0 [facility] Comment on above: Performed By: #### L 501.2300, L501.5200, L100.0100, L500.2500 ####[facility] [address] [place], [address] Chloride [Moles/Vol] 103 mmol/L Normal 98-108 [facility] Comment on above: Performed By: #### L 501.2300, L501.5200, L100.0100, L500.2500 ####[facility] [address] [place], [address] CO2 [Moles/Vol] 31.1 mmol/L Normal 21.0-32.0 [facility] Comment on above: Performed By: #### L 501.2300, L501.5200, L100.0100, L500.2500 ####[facility] [address] [place], [address] Creatinine [Mass/Vol] 0.38 mg/dL Low 0.70-1.20 [facility] Comment on above: Performed By: #### L 501.2300, L501.5200, L100.0100, L500.2500 ####[facility] [address] [place], [address] ECRCL 42.95 ml/min Low 50-250 [facility] Comment on above: Performed By: #### L 501.2300, L501.5200, L100.0100, L500.2500 ####[facility] [address] [place], [address] GAP 8 Normal 5-15 [facility] Comment on above: Performed By: #### L 501.2300, L501.5200, L100.0100, L500.2500 ####[facility] [address] [place], [address] GFR/1.73 sq M.predicted among non-blacks MDRD (S/P/Bld) [Vol rate/Area] 99 mL/min/{1.73_m2} Normal >60 [facility] Comment on above: Result Comment: mL/m in/1.73m2 CKD-EPI Creatinine Equation (2020) Performed By: #### L 501.2300, L501.5200, L100.0100, L500.2500 ####[facility] [address] [place], [address] Glucose [Mass/Vol] 119 mg/dL High 70-99 [facility] Comment on above: Performed By: #### L 501.2300, L501.5200, L100.0100, L500.2500 ####[facility] [address] [place], [address] Potassium [Moles/Vol] 3.8 mmol/L Normal 3.3-5.1 [facility] Comment on above: Performed By: #### L 501.2300, L501.5200, L100.0100, L500.2500 ####[facility] [address] [place], [address] Sodium [Moles/Vol] 142 mmol/L Normal 133-145 [facility] Comment on above: Performed By: #### L 501.2300, L501.5200, L100.0100, L500.2500 ####[facility] [address] [place], [address] Urea nitrogen [Mass/Vol] 20 mg/dL High 4-19 [facility] Comment on above: Performed By: #### L 501.2300, L501.5200, L100.0100, L500.2500 ####[facility] [address] [place], [address] Bilirubin directOrdered By: Keerthi Son on 04-30-2025 Bilirubin.direct [Mass/Vol] 0.43 mg/dL High 0.00-0.30 [facility] Bilirubin, totalOrdered By: Keerthi Son on 04-30-2025 Bilirubin [Mass/Vol] 1.09 mg/dL 0.00-1.30 [facility] CBC W/Diff, Automatedon 04-21 Absolute Lymph 1.90 X10 3/uL Normal 0.83-4.51 [facility] Comment on above: Performed By: #### L 501.2300, L501.5200, L100.0100, L500.2500 ####[facility] [address] [place], [address] Absolute Neut 5.2 X10 3/uL Normal 2.0-7.7 [facility] Comment on above: Performed By: #### L 501.2300, L501.5200, L100.0100, L500.2500 ####[facility] [address] [place], [address] Basophils/100 WBC (Bld) 0.7 % Normal 0-1 [facility] Comment on above: Performed By: #### L 501.2300, L501.5200, L100.0100, L500.2500 ####[facility] [address] [place], [address] Eosinophils/100 WBC (Bld) 3.1 % Normal 0-5 [facility] Comment on above: Performed By: #### L 501.2300, L501.5200, L100.0100, L500.2500 ####[facility] [address] [place], [address] Erythrocyte distribution width (RBC) [Ratio] 14.3 % Normal 11.6-14.6 [facility] Comment on above: Performed By: #### L 501.2300, L501.5200, L100.0100, L500.2500 ####[facility] [address] [place], [address] Hematocrit (Bld) [Volume fraction] 44.9 % Normal 37-47 [facility] Comment on above: Performed By: #### L 501.2300, L501.5200, L100.0100, L500.2500 ####[facility] [address] [place], [address] Hemoglobin (Bld) [Mass/Vol] 13.9 g/dL Normal 12.0-15.0 [facility] Comment on above: Performed By: #### L 501.2300, L501.5200, L100.0100, L500.2500 ####[facility] [address] [place], [address] IG% 0.700 Normal 0.0-0.9 [facility] Comment on above: Result Comment: IG% - Immature Granulocytes (promyelocytes, myelocytes andmetamyelocytes) > 1% indicates that a LEFT SHIFT is Present. Performed By: #### L 501.2300, L501.5200, L100.0100, L500.2500 ####[facility] [address] [place], [address] Lymphocytes/100 WBC (Bld) 23.4 % Normal 19-41 [facility] Comment on above: Performed By: #### L 501.2300, L501.5200, L100.0100, L500.2500 ####[facility] [address] [place], [address] MCH (RBC) [Entitic mass] 32.5 pg High 27.0-32.0 [facility] Comment on above: Performed By: #### L 501.2300, L501.5200, L100.0100, L500.2500 ####[facility] [address] [place], [address] MCHC (RBC) [Mass/Vol] 31.0 g/dL Low 32-36 [facility] Comment on above: Performed By: #### L 501.2300, L501.5200, L100.0100, L500.2500 ####[facility] [address] [place], [address] MCV (RBC) [Entitic vol] 104.9 fL High 81-99 [facility] Comment on above: Performed By: #### L 501.2300, L501.5200, L100.0100, L500.2500 ####[facility] [address] [place], [address] Monocytes/100 WBC (Bld) 7.5 % Normal 0-10 [facility] Comment on above: Performed By: #### L 501.2300, L501.5200, L100.0100, L500.2500 ####[facility] [address] [place], [address] Neutrophils/100 WBC (Bld) 64.6 % Normal 47-70 [facility] Comment on above: Performed By: #### L 501.2300, L501.5200, L100.0100, L500.2500 ####[facility] [address] [place], [address] Nucleated RBC (Bld) [#/Vol] 0 10*3/uL Normal 0-5 [facility] Comment on above: Performed By: #### L 501.2300, L501.5200, L100.0100, L500.2500 ####[facility] [address] [place], [address] Platelet mean volume (Bld) [Entitic vol] 10.5 fL Normal 6.2-12.0 [facility] Comment on above: Performed By: #### L 501.2300, L501.5200, L100.0100, L500.2500 ####[facility] [address] [place], [address] Platelets (Bld) [#/Vol] 215 10*3/uL Normal 150-450 [facility] Comment on above: Performed By: #### L 501.2300, L501.5200, L100.0100, L500.2500 ####[facility] [address] [place], [address] RBC (Bld) [#/Vol] 4.28 10*6/uL Normal 4.2-5.4 [facility] Comment on above: Performed By: #### L 501.2300, L501.5200, L100.0100, L500.2500 ####[facility] [address] [place], [address] RDW SD 55.5 fl High 35.1-43.9 [facility] Comment on above: Performed By: #### L 501.2300, L501.5200, L100.0100, L500.2500 ####[facility] [address] [place], [address] WBC (Bld) [#/Vol] 8.1 10*3/uL Normal 4.4-11.0 [facility] Comment on above: Performed By: #### L 501.2300, L501.5200, L100.0100, L500.2500 ####[facility] [address] [place], [address] Consultation - Surgicalon Consultation - Surgical Normal [facility] Gram stainOrdered By: Keerthi enciso on 04-30-2025 Microscopic observation Gram stain Nom (Unsp spec) [facility] Hemoglobin A1con 04-30-2025 HbA1c (Bld) [Mass fraction] 5.1 % Normal <=5.6 [facility] Comment on above: Order Comment: H65 Result Comment: Norm al < 5.7 % Prediabetic 5.7 - 6.4 % Diabetic >or= 6.5 % Please note range changes. Performed By: #### L 501.9985 ####[facility] [address] [place], [address] Hemoglobin A1c percentageOrd ered By: Keerthi Son on 04-30-2025 HbA1c (Bld) [Mass fraction] 5.1 % <5.7 [facility] Comment on above: Normal < 5.7 % Predi abetic 5.7 - 6.4 % Diabetic >or= 6.5 % Please note range changes. Laboratory - Chemistry and C hemistry - challengeOrdered By: Keerthi Son on 04-30-2025 AST [Catalytic activity/Vol] 32 U/L <32 [facility] Liver Profileon 04-30-2025 Albumin [Mass/Vol] 3.2 g/dL Low 3.4-4.8 [facility] Comment on above: Order Comment: WG2 2 K Performed By: #### L 500.3400 ####[facility] [address] [place], [address] ALK PHOS 118 U/L High 35-104 [facility] Comment on above: Order Comment: WG2 2 K Performed By: #### L 500.3400 ####[facility] [address] [place], [address] ALT [Catalytic activity/Vol] 14 U/L Normal <=34 [facility] Comment on above: Order Comment: WG2 2 K Performed By: #### L 500.3400 ####[facility] [address] [place], [address] AST [Catalytic activity/Vol] 32 U/L Normal <=31 [facility] Comment on above: Order Comment: WG2 2 K Performed By: #### L 500.3400 ####[facility] [address] [place], [address] Bilirubin [Mass/Vol] 1.09 mg/dL Normal 0.00-1.30 [facility] Comment on above: Order Comment: WG2 2 K Performed By: #### L 500.3400 ####[facility] [address] [place], [address] Bilirubin.direct [Mass/Vol] 0.43 mg/dL High 0.00-0.30 [facility] Comment on above: Order Comment: WG2 2 K Performed By: #### L 500.3400 ####[facility] [address] [place], [address] Globulin (S) [Mass/Vol] 3.1 g/dL Normal 2.2-4.2 [facility] Comment on above: Order Comment: WG2 2 K Performed By: #### L 500.3400 ####[facility] [address] [place], [address] T PROT 6.3 g/dL Normal 5.9-8.4 [facility] Comment on above: Order Comment: WG2 2 K Performed By: #### L 500.3400 ####[facility] [address] [place], [address] Magnesiumon 04-30-2025 Magnesium [Mass/Vol] 2.1 mg/dL Normal 1.5-2.2 [facility] Comment on above: Performed By: #### L 501.2300, L501.5200, L100.0100, L500.2500 ####[facility] [address] [place], [address] Phosphoruson 04-30-2025 Phosphate [Mass/Vol] 3.5 mg/dL Normal 2.7-4.5 [facility] Comment on above: Performed By: #### L 501.2300, L501.5200, L100.0100, L500.2500 ####[facility] [address] [place], [address] Routine wound cultureOrdered By: Keerthi Son on 04-30-2025 Microbial culture, routine Staphylococcus hominis hominis Abnormal [facility] Serum globulin measurementOr dered By: Keerthi Cagleherminia on 04-30-2025 Globulin (S) [Mass/Vol] 3.1 g/dL 2.2-4.2 [facility] Serum or plasma alanine colbert otransferase (ALT) measurementOrdered By: Keerthi Cagleherminia on 04-30-2025 ALT [Catalytic activity/Vol] 14 U/L <35 [facility] Serum or plasma albumin azael urement (mass/volume)Ordered By: Keerthi Cagleherminia on 04-30-2025 Albumin [Mass/Vol] 3.2 g/dL Low 3.4-4.8 [facility] Serum or plasma alkaline selvin sphatase measurementOrdered By: Keerthi Cagleherminia on 04-30-2025 ALP [Catalytic activity/Vol] 118 U/L High 35-104 [facility] Total proteinOrdered By: Susan boothe Adelaida on 04-30-2025 Protein [Mass/Vol] 6.3 g/dL 5.9-8.4 [facility] Vitamin D,25 Hydroxyon 04-30 Vitamin D 25-OH 27.6 ng/mL Low 30-100 [facility] Comment on above: Result Comment: Estephania min D StatusDeficiency: <20 ng/mL (50nmol/L)Insufficiency: 20-30 ng/mL (50-75 nmol/L)Sufficiency: 30-100 ng/mL (75-250 nmol/L)Toxicity: >100 ng/mL (>250 nmol/L) Performed By: #### L 506.1001 ####[facility] [address] [place], [place], [address] 36on 04-29-2025 36 Pt will be new to [facility] office. Normal [facility] 36 Patient currently admitted. Normal [facility] Laboratory - Chemistry and C hemistry - challengeon 04-29-2025 Glucose [Mass/Vol] 107 mg/dL High 70 - 100 mg/dL [facility] Glucose [Mass/Vol] 82 mg/dL 70 - 100 mg/dL [facility] No Panel Informationon 04-29 Interpretation and review of laboratory results Abnormal [facility] Performed by: [facility], [address] [place] [address] CLIA ID: [id number] [facility] Interpretation and review of laboratory results [facility] Performed by: [facility], [address] [facility], [facility] [address] CLIA ID: [id number] [facility] Nursing Noteon 04-29-2025 Nursing Note Report called to [facility]. No further questions. Patient transport set up for 1530. Normal [facility] Nursing Note Wound Care consulted for Pressure Injury Prevention. Pt's Hema score= 16 on 04/29 Pt's pressure points assessed. Pt turned with max assist of 1 (this RN) for posterior assessment. Pt's Heels, Buttocks/coccyx, Back, Elbows, Occiput and ears all intact. Bruising and swelling noted to right knee. [place] and blanchable tissues noted to bilateral heels. Blanchable erythema noted to coccyx. Skin tear noted to right lower back, pt states this area is from scratching. Female external catheter in place. Skin intact to medial thighs and labia. Pt incontinent of large amount of urine. Pads changed, incontinence care provided, sacral foam applied. Pt pulled up in bed using glide sheet and repositioned onto right side using pillows at end of visit with assist from this RN and professional nursing assistant. Instructed pt on pressure injury prevention and importance of turning/postioning every 2hrs while in bed and every 15 min while sitting in chair. Instructed on use and care of waffle chair cushion. Verbalized understanding. Prevention Measures in place, including: Valentines sheet with pillows/wedges, Foam heel protectors (obtained and applied), Heels elevated off bed on pillows, Sacral foam (obtained and applied), Zinc/Moisture Barrier ointment (obtained), Waffle chair cushion (obtained for pt). Skin Care precaution order set in place. Dietitian civil drafting technician involved. PT/OT consult in place. D/W nursing staff. Will continue to follow pt. Please Vocera for any questions or concerns. Lavern Steele RN [facility] Progress Noteon 04-29-2025 Progress Note Nutrition update completed. Chart reviewed. Patient to be monitored and followed by the diet civil drafting technician. ARVIND Owen [facility] Progress Note ------ -- Attestation signed by Ronald Caldwell MD at 05/20/2025 11:10 AM ~~~~~~~~~~~~~~~~~~~~~~~~~~ ~~~~~~~~~~~~~~~~~~~~~~~~~~ ~~~~~~ Attending physician addendum: I independently saw and evaluated the patient. I personally obtained the romero and critical portion of the history and physical exam. I reviewed and agree with the documentation below. I personally reviewed patient's labs and imaging studies. My findings agree with the below note except for any details corrected. I have examined the patient at the date below. I have personally performed a face to face diagnostic evaluation on this patient. I have reviewed and agree with the care plan as documented above by my SHUTTLE DRIVER/KILEY. I personally discussed the review of systems and interviewed the patient along with performing a physical examination. In addition, I discussed the patient's condition and treatment options with him/her when possible. All of the patient's questions were answered and family updated when appropriate and possible. I I performed a physical exam and ROS on the same date of service as above. My findings agree with the above note except for any details corrected below. A complete review of systems was obtained and is negative except as stated in HPI. I have evaluated the patient on 04/29/25 Patient's pain well controlled. Skin necrosis overlying Right knee hematoma - currently no evidence of cellulitis. Cont topical Bacitracin BID. Stop Ancef for UTI - completed 5 days. Discharge to rehabilitation plans Chief complain: Left chest pain Problem list: Acute traumatic left frontal and anterior hemispheric subdural hematoma 6mm, no mass effect Acute traumatic left 3 through 7 rib fractures Left shoulder osteoarthritis Right knee hematoma Acute traumatic pain Possible Pre-syncopal fall Constipation Chronic compression fractures of T8, L1 and L2 Atrial fibrillation GERD CHF Pulmonary hypertension Psoriasis UTI Procedures: 04/25 - ES block Management / Plan : Neuro/Spine: -Neurosurgery consulted, recommend the following: Repeat CT head showed improvement in right frontal SDH. Interhemispheric SDH noted on first CT. CT as above No neurosurgical intervention indicated Continue to hold OAC (Xarelto) until OP follow up May start DVT ppx in 48 hrs No need for AED CT head in 1-2 weeks OP - Pain control: Tylenol 1gm q8hrs, Gabapentin 100mg q12hrs, Oxy 5/10mg prn - Hold home Percocet (Tylenol and Oxy) - Home Baclofen -changed to HS - Home Buprenorphine patch weekly - Palliative consult - Geriatrics consult -Medications with associated fall risk include: Atenolol - monitor for bradycardia/hypotension Balcofen - takes at HS only, recommend decreasing to HS only here Furosemide - monitor for orthostasis/dehydration Percocet - long-standing med, dose likely reasonable No longer taking gabapentin, amitriptyline at home - Cont Melatonin 3mg HS - APS consult-->rib block complete HEENT: - no concerns Cardiovascular: - Hypotension resolved: SBP 94-141 - Home Atenolol 25mg daily- hold for HR <60 or SBP <100 - BP Goal <160 SBP - Telemetry - Orthostatic BPs negative on 04/23 - 04/23- EKG- A-fib, Qtc 467 ms - Repeat Echo 04/23- LVEF 60% mild, aortic valve stenosis, Left atrium severely dilated -last 02/11/21 echo EF 68% - HOLD Xarelto-->until OP follow up with NSGY - Resume home lasix Pulmonary: Hx COPD, CHF -# Acute left 3rd through 7th rib fractures - Multimodal pain control as above - APS rib block completed 04/25 - Daily chest x-rays CXR - Pulmonary congestion, small right pleural effusion-daily chest xrays - 04/27 CXR demonstrated congestion-20 mg Lasix IV x 1 ordered-follow up chest xray a.m. similar - resume Lasix 20mg daily - Aggressive pulm toilet with incentive spirometry- pulling 250-500ml on IS -Cont AccuPAP - Home Symbicort-->substitute Dulera - Home Spiriva - 3% nebs Q12 - Duonebs QID and prn #COPD - standard O2 protocol; patient on as needed oxygen at home, O2 goal SpO2 greater than 88% - wears home oxygen at 2L NC intermittently FEN/GI: - Diet: Carb control - Zofran PRN - bowel regimen- miralax daily and senna BID - Home Vit D - Home Pepcid - Daily BMP : - Estimated Creatinine Clearance: 83.3 mL/min (A) (by C-G formula based on SCr of 0.42 mg/dL (L)). 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 Normal [facility] XR CHEST 1 VIEWon 04-29-2025 XR CHEST 1 VIEW Patient Name: LESLI HERNANDEZ MS : 1940 Exam Date/Time: 04/29/2025 06:42 Procedure: XR CHEST 1 VIEW Ordering Provider: GARSIA LESLEY Reason For Exam: left rib fx EXAM: XR Chest, 1 View CLINICAL INDICATION: left rib fx TECHNIQUE: Frontal view of the chest. COMPARISON: Chest radiograph from 04/28/2025 FINDINGS: LUNGS AND PLEURAL SPACES: Calcified granuloma in the right mid lung. Apparent small right pleural effusion. Central pulmonary vascular congestion. Linear atelectasis or scarring in the right midlung. No pneumothorax. No new confluent consolidation. Mild emphysematous changes. HEART: Stable marked prominence of the cardiac silhouette. MEDIASTINUM: Unremarkable. Normal mediastinal contour. BONES/JOINTS: Reverse right TSA. Degenerative change of the spine. Left fifth lateral rib fracture, favored to be chronic in nature. VASCULATURE: Calcification of the thoracic aorta. IMPRESSION: Prominence of the cardiac silhouette, central pulmonary vascular congestion, and small right pleural effusion. Report Dictated on Electronically Signed By: Janny Duarte MD Electronically Signed Date/Time: 04/29/2025 11:20 AM EDT [facility] XR Chest Single viewon 04-29 Prominence of the ca rdiac silhouette, central pulmonary vascular congestion, and small right pleural effusion. Report Dictated on Electronically Signed By: Janny Duarte MD Electronically Signed Date/Time: 04/29/2025 11:20 AM EDT [facility] Patient Name: LESLI HERNANDEZ MS : 1940 Exam Date/Time: 04/29/2025 06:42 Procedure: XR CHEST 1 VIEW Ordering Provider: GARSIA LESLEY Reason For Exam: left rib fx EXAM: XR Chest, 1 View CLINICAL INDICATION: left rib fx TECHNIQUE: Frontal view of the chest. COMPARISON: Chest radiograph from 04/28/2025 FINDINGS: LUNGS AND PLEURAL SPACES: Calcified granuloma in the right mid lung. Apparent small right pleural effusion. Central pulmonary vascular congestion. Linear atelectasis or scarring in the right midlung. No pneumothorax. No new confluent consolidation. Mild emphysematous changes. HEART: Stable marked prominence of the cardiac silhouette. MEDIASTINUM: Unremarkable. Normal mediastinal contour. BONES/JOINTS: Reverse right TSA. Degenerative change of the spine. Left fifth lateral rib fracture, favored to be chronic in nature. VASCULATURE: Calcification of the thoracic aorta. [facility] Janny Duarte M D - 04/29/2025 Patient Name: LESLI ROSALES : 1940 Exam Date/Time: 04/29/2025 06:42 Procedure: XR CHEST 1 VIEW Ordering Provider: GARSIA LESLEY Reason For Exam: left rib fx EXAM: XR Chest, 1 View CLINICAL INDICATION: left rib fx TECHNIQUE: Frontal view of the chest. COMPARISON: Chest radiograph from 04/28/2025 FINDINGS: LUNGS AND PLEURAL SPACES: Calcified granuloma in the right mid lung. Apparent small right pleural effusion. Central pulmonary vascular congestion. Linear atelectasis or scarring in the right midlung. No pneumothorax. No new confluent consolidation. Mild emphysematous changes. HEART: Stable marked prominence of the cardiac silhouette. MEDIASTINUM: Unremarkable. Normal mediastinal contour. BONES/JOINTS: Reverse right TSA. Degenerative change of the spine. Left fifth lateral rib fracture, favored to be chronic in nature. VASCULATURE: Calcification of the thoracic aorta. IMPRESSION: Prominence of the cardiac silhouette, central pulmonary vascular congestion, and small right pleural effusion. Report Dictated on Electronically Signed By: Janny Duarte MD Electronically Signed Date/Time: 04/29/2025 11:20 AM EDT [facility] Radiology Study observation (narrative) [facility] 36on 04-28-2025 36 Currently admitted Normal [facility] BASIC METABOLIC PANELon Anion gap [Moles/Vol] 5 mmol/L Normal 3-13 [facility] Comment on above: Performed By: #### L [id number] #### [facility]: ANGELICA LUZ ([phone]) [facility]) [address] [place] [address] Calcium [Mass/Vol] 8.7 mg/dL Low 8.8-10.0 [facility] Comment on above: Performed By: #### L [id number] #### [facility]: ANGELICA LUZ ([id number]) [facility] ([facility]) [address] [place] [address] Chloride [Moles/Vol] 103 mmol/L Normal 98-107 [facility] Comment on above: Performed By: #### L [id number] #### [facility]: ANGELICA LUZ ([id number]) [facility] ([facility]) [address] [place] [address] [place] CO2 [Moles/Vol] 32 mmol/L High 23-31 [facility] Comment on above: Performed By: #### L [id number] #### [facility]: ANGELICA LUZ ([id number]) [facility] ([facility]) [address] [place] [address] Creatinine [Mass/Vol] 0.42 mg/dL Low 0.57-1.11 [facility] Comment on above: Performed By: #### L [id number] #### [facility]: ANGELICA LUZ ([id number]) [facility]) [address] [place] [address] GLOMERULAR FILTRATION RATE ML/MIN/1.73 SQ M.PREDICTED >90.0 Normal >60.0 [facility] Comment on above: Result Comment: Calc ulation based on the Chronic Kidney Disease Epidemiology Collaboration (CKD-EPI) equation refit without adjustment for race Performed By: #### L [id number] #### [facility]: ANGELICA LUZ ([id number]) [facility]) [address] [place] [address] Glucose [Mass/Vol] 76 mg/dL Low 82-115 [facility] Comment on above: Performed By: #### L [id number] #### [facility]: ANGELICA LUZ ([id number]) [facility]) [address] [place] [address] Potassium [Moles/Vol] 3.9 mmol/L Normal 3.5-5.1 [facility] Comment on above: Result Comment: [facility] potassium values may be up to 0.5 mmol/L lower than serum values. Performed By: #### L [id number] #### [facility]: ANGELICA LUZ ([id number]) [facility] ([facility]) [address] [place] [address] Sodium [Moles/Vol] 140 mmol/L Normal 136-145 [facility] Comment on above: Performed By: #### L [id number] #### [facility]: ANGELICA LUZ ([id number]) [facility]) [address] [place] [address] Urea nitrogen [Mass/Vol] 16 mg/dL Normal 9-23 [facility] Comment on above: Performed By: #### L [id number] #### [facility]: ANGELICA LUZ ([id number]) [facility]) [address] [place] [address] Basic metabolic 1998 panelon 04-28-2025 Anion gap [Moles/Vol] 5 mmol/L 3 - 13 mmol/L [facility] Calcium [Mass/Vol] 8.7 mg/dL Low 8.8 - 10. 0 mg/dL [facility] Chloride [Moles/Vol] 103 mmol/L 98 - 10 7 mmol/L [facility] CO2 [Moles/Vol] 32 mmol/L High 23 - 31 mmol/L [facility] Creatinine [Mass/Vol] 0.42 mg/dL Low 0.57 - 1.11 mg/dL [facility] GFR/1.73 sq M.predicted (S/P/Bld) [Vol rate/Area] - PINF [facility] Comment on above: Calculation based on the Chronic Kidney Disease Epidemiology Collaboration (CKD-EPI) equation refit without adjustment for race Glucose [Mass/Vol] 76 mg/dL Low 82 - 115 mg/dL [facility] Interpretation and review of laboratory results Abnormal [facility] Potassium [Moles/Vol] 3.9 mmol/L 3.5 - 5.1 mmol/L [facility] Comment on above: Plasma potassium jose ues may be up to 0.5 mmol/L lower than serum values. Sodium [Moles/Vol] 140 mmol/L 136 - 145 mmol/L [facility] Urea nitrogen [Mass/Vol] 16 mg/dL 9 - 23 mg/dL [facility] CBC W Auto Differential pane l (Bld)on 04-28-2025 Basophils (Bld) [#/Vol] 0.1 10*3/uL 0.0 - 0.2 10*3/uL [facility] Basophils/100 WBC (Bld) 0.7 % 0.0 - 2.0 % [facility] Eosinophils (Bld) [#/Vol] 0.3 10*3/uL 0.0 - 0.5 10*3/uL [facility] Eosinophils/100 WBC (Bld) 3.9 % 0.0 - 6.0 % [facility] Erythrocyte distribution width (RBC) [Ratio] 13.9 % 11.5 - 15.0 % [facility] Hematocrit (Bld) [Volume fraction] 40.7 % 35.0 - 47.0 % [facility] Hemoglobin (Bld) [Mass/Vol] 13 g/dL 11.7 - 16.0 g/dL [facility] Immature granulocytes (Bld) [#/Vol] 0 10*3/uL NINF - 0.1 10*3/uL [facility] Immature granulocytes/100 WBC (Bld) 0.6 % 0.0 - 2.0 % [facility] Interpretation and review of laboratory results Abnormal [facility] Lymphocytes (Bld) [#/Vol] 1.7 10*3/uL 1.0 - 4.3 10*3/uL [facility] Lymphocytes/100 WBC (Bld) 25.3 % 15.0 - 45.0 % [facility] MCH (RBC) [Entitic mass] 33 pg 26.0 - 34.0 pg [facility] MCHC (RBC) [Mass/Vol] 31.9 % 30.5 - 36.0 % [facility] MCV (RBC) [Entitic vol] 103.3 fL High 77.0 - 99.0 fL [facility] Monocytes (Bld) [#/Vol] 0.8 10*3/uL 0.0 - 0.9 10*3/uL [facility] Monocytes/100 WBC (Bld) 11.6 % 5.0 - 13.0 % [facility] Neutrophils (Bld) [#/Vol] 4 10*3/uL 1.8 - 7.5 10*3/uL [facility] Neutrophils/100 WBC (Bld) 57.9 % 38.0 - 82.0 % [facility] Nucleated RBC/100 WBC (Bld) [Ratio] 0 % [facility] Platelet mean volume (Bld) [Entitic vol] 11.1 fL 9.0 - 12.7 fL [facility] Platelets (Bld) [#/Vol] 180 10*3/uL 140 - 440 10*3/uL [facility] RBC (Bld) [#/Vol] 3.94 10*6/uL 3.80 - 5.20 10*6/uL [facility] WBC (Bld) [#/Vol] 6.9 10*3/uL 3.6 - 10.7 10*3/uL [facility] CBC WITH AUTO DIFFERENTIALon 04-28-2025 Basophils (Bld) [#/Vol] 0.1 10*3/uL Normal 0.0-0.2 [facility] Comment on above: Performed By: #### L [id number] ####[facility]: ANGELICA LUZ ([id number])[facility])[address] [place] [address] Basophils/100 WBC (Bld) 0.7 % Normal 0.0-2.0 [facility] Comment on above: Performed By: #### L [id number] ####[facility]: ANGELICA LUZ ([id number])[facility])[address] [place] [address] Eosinophils (Bld) [#/Vol] 0.3 10*3/uL Normal 0.0-0.5 [facility] Comment on above: Performed By: #### L [id number] ####[facility]: ANGELICA LUZ ([id number])[address] Eosinophils/100 WBC (Bld) 3.9 % Normal 0.0-6.0 [facility] Comment on above: Performed By: #### L [id number] ####[facility]: ANGELICA LUZ ([id number])[facility])[address] [place] [address] Erythrocyte distribution width (RBC) [Ratio] 13.9 % Normal 11.5-15.0 [facility] Comment on above: Performed By: #### L [id number] ####[facility]: ANGELICA LUZ ([id number])[address] Hematocrit (Bld) [Volume fraction] 40.7 % Normal 35.0-47.0 [facility] Comment on above: Performed By: #### L [id number] ####[facility]: ANGELICA LUZ ([id number])[facility])[address] [place] [address] Hemoglobin (Bld) [Mass/Vol] 13.0 g/dL Normal 11.7-16.0 [facility] Comment on above: Performed By: #### L [id number] ####[facility]: ANGELICA LUZ ([id number])[facility] [address] IMMATURE GRANS % 0.6 % Normal 0.0-2.0 [facility] Comment on above: Performed By: #### L [id number] ####[facility]: ANGELICA LUZ ([id number])[facility])[address] [place] [address] IMMATURE GRANS ABSOLUTE 0.0 10*3/uL Normal <0.1 [facility] Comment on above: Performed By: #### L [id number] ####[facility]: ANGELICA LUZ ([id number])[facility])[address] [place] [address] Lymphocytes (Bld) [#/Vol] 1.7 10*3/uL Normal 1.0-4.3 [facility] Comment on above: Performed By: #### L [id number] ####[facility]: ANGELICA LUZ ([id number])[facility])[address] [place] [address] Lymphocytes/100 WBC (Bld) 25.3 % Normal 15.0-45.0 [facility] Comment on above: Performed By: #### L [id number] ####[facility]: ANGELICA LUZ ([id number])[facility])[address] [place] [address] MCH (RBC) [Entitic mass] 33.0 pg Normal 26.0-34.0 [facility] Comment on above: Performed By: #### L [id number] ####[facility]: ANGELICA LUZ ([id number])[facility])[address] [place] [address] MCHC 31.9 % Normal 30.5-36.0 [facility] Comment on above: Performed By: #### L [id number] ####[facility]: ANGELICA LUZ ([id number])[facility])[address] [place] [address] MCV (RBC) [Entitic vol] 103.3 fL High 77.0-99.0 [facility] Comment on above: Performed By: #### L [id number] ####[facility]: ANGELICA LUZ ([id number])[facility] ([facility])[address] [place] [address] Monocytes (Bld) [#/Vol] 0.8 10*3/uL Normal 0.0-0.9 [facility] Comment on above: Performed By: #### L [id number] ####[facility]: ANGELICA LUZ ([id number])[facility] ([facility])[address] [place] [address] Monocytes/100 WBC (Bld) 11.6 % Normal 5.0-13.0 [facility] Comment on above: Performed By: #### L [id number] ####[facility]: ANGELICA LUZ ([id number])[facility] ([facility])[address] [place] [address] NEUTROPHILS ABSOLUTE 4.0 10*3/uL Normal 1.8-7.5 [facility] Comment on above: Performed By: #### L [id number] ####[facility]: ANGELICA LUZ ([id number])[facility] ([facility])[address] [place] [address] Neutrophils/100 WBC (Bld) 57.9 % Normal 38.0-82.0 [facility] Comment on above: Performed By: #### L [id number] ####[facility]: ANGELICA LUZ ([id number])[facility] ([facility])[address] [place] [address] NRBC 0.0 /100 WBCs Normal 0.0-2.0 [facility] Comment on above: Performed By: #### L [id number] ####[facility]: ANGELICA LUZ ([id number])[facility])[address] [place] [address] Platelet mean volume (Bld) [Entitic vol] 11.1 fL Normal 9.0-12.7 [facility] Comment on above: Performed By: #### L [id number] ####[facility]: ANGELICA LUZ ([id number])[facility] [place] [address] Platelets (Bld) [#/Vol] 180 10*3/uL Normal 140-440 [facility] Comment on above: Performed By: #### L [id number] ####[facility]: ANGELICA LUZ ([id number])[facility] ([facility])[address] [place] [address] RBC (Bld) [#/Vol] 3.94 10*6/uL Normal 3.80-5.20 [facility] Comment on above: Performed By: #### L [id number] ####[facility]: ANGELICA LUZ ([id number])[facility] ([facility])[address] [place] [address] WBC (Bld) [#/Vol] 6.9 10*3/uL Normal 3.6-10.7 [facility] Comment on above: Performed By: #### L [id number] ####[facility]: ANGELICA LUZ ([id number])[facility] ([facility])[address] [place] [address] Laboratory - Chemistry and C hemistry - challengeon 04-28-2025 Glucose [Mass/Vol] 116 mg/dL High 70 - 100 mg/dL [facility] Glucose [Mass/Vol] 86 mg/dL 70 - 100 mg/dL [facility] Glucose [Mass/Vol] 114 mg/dL High 70 - 100 mg/dL [facility] Glucose [Mass/Vol] 105 mg/dL High 70 - 100 mg/dL [facility] No Panel Informationon 04-28 Interpretation and review of laboratory results Abnormal [facility] Performed by: [place] [address] CLIA ID: [id number] [facility] Interpretation and review of laboratory results Normal [facility] Performed by: [address] [address] CLIA ID: [id number] [facility] Interpretation and review of laboratory results Abnormal [facility] Performed by: [place] [address] CLIA ID: [id number] [facility] Interpretation and review of laboratory results Abnormal [facility] Performed by: [facility], [address] [place] [address], [facility] [address] CLIA ID: [id number] [facility] Progress Noteon 04-28-2025 Progress Note OCCUPATIONAL THERAPY [facility] Treatment Note Name/MRN: Lesli Rosales ([id number]) Date of : 1940 Age: 85 y.o. Room/Bed: W3-325/W3-325 A Discharge Recommendation: IP Rehab Assessment Pt was alert and oriented x3. Pt sat EOB and completed oral hygiene and brushed hair. Pt is limited by decreased activity tolerance, gen weakness, NWB LUE. Pt would benefit from continued OT services to increase ind c/ ADLs, fxl mobility and transfers. Recommending Rehab upon discharge. Subjective Pt was agreeable to tx, sat EOB and completed oral care. Pain: Pizano-Soliz Pain Ratin = Hurts little more Pain Location: LUE, back Medical Precautions: No active isolations Proper PPE donned/doffed in accordance with facility standards. Fall Risk: Curry Fall Risk Score: 85 (Low Risk) Curry Fall Risk Score: 85 (High Risk) Precautions/Restrictions: Lines/Drains/Airways: O2, external catheter, SPO2 Family/Caregiver Present: none Objective ADLs Grooming: Supervision EOB, pt completed oral care and brushed hair. SANDERS completed item retrieval. Bed Mobility Supine to sit: Min Assist Sit to supine: Min Assist Scooting: Mod Assist HOB Elevated Use of bed rail(s) Plan Continue acute OT per plan of care. Safety/Education Safety Safety Devices in place: All fall risk precautions in place, call light within reach, left in bed, bed alarm in place, patient at risk for falls, and nurse notified Restraints: No Education Education Given To: patient Education Provided: OT Role, Plan of Care, Energy Conservation, Discharge Recommendations, and Benefits of Increasing Activity Education Method: Verbal Barriers to Learning: Cognition Education Outcome: Verbalized Understanding AM-PAC AM-PAC Inpatient Daily Activity Raw Score: 13 ADL Inpatient CMS G-Code Modifier: CL Goals Patient Stated Goal: rehab Encounter Problems Encounter Problems (Active) Balance Patient will maintain static standing balance for 3 minutes with CGA in order to demonstrate decreased risk of falling. (Not Addressed) Start: 04/24/25 Expected End: 05/22/25 Dressing Upper Extremities Patient will complete upper body dressing with min assist (Not Addressed) Start: 04/24/25 Expected End: 05/22/25 Dressings Lower Extremities Patient will dress lower body with min assist (Not Addressed) Start: 04/24/25 Expected End: 05/22/25 Grooming Patient will complete daily grooming tasks with set up (Initiated) Start: 04/24/25 Expected End: 05/22/25 Mobility Patient will demonstrate functional ambulation with CGA and LRD (Not Addressed) Start: 04/24/25 Expected End: 05/22/25 Toileting Patient will complete toileting tasks at standard toilet with min assist. (Not Addressed) Start: 04/24/25 Expected End: 05/22/25 Transfers Patient will complete functional transfer with least restrictive device with CGA in order to prepare for ambulation. (Not Addressed) Start: 04/24/25 Expected End: 05/22/25 Patient will perform bed mobility with CGA in order to improve independence and prepare for out of bed mobility. (Not Addressed) Start: 04/24/25 Expected End: 05/22/25 Therapy Time Individual Co-treatment Time In 1206 Time Out 1220 Minutes 14 Timed Code Treatment Minutes: 14 Minutes 1 Self MARILYN Maharaj [facility] Progress Note PHYSICAL THERAPY [facility] Treatment Note Name/MRN: Lesli Rosales ([id number]) Date of : 1940 Age: 85 y.o. Room/Bed: 3[facility] A Discharge Recommendation: IP Rehab Equipment Needed: (tbd) Assessment Instability with all activity. Encouraged I.S. use, OOB, increased activity. SpO2 88-92% Rec rehab Subjective Right sidelye. Agree to PT Pain: left shoulder, right knee Medical Precautions: No active isolations Proper PPE donned/doffed in accordance with facility standards. Fall Risk: Curry Fall Risk Score: 85 (Low Risk) Curry Fall Risk Score: 85 (High Risk) Precautions/Restrictions: Lines/Drains/Airways: O2, external catheter, oxygen. NWB LUE; sling for comfort, assist to reposition/don sling. Overall Cognitive Status: WFL Overall Orientation Status: Oriented x4 Family/Caregiver Present: none Objective Bed Mobility Supine to sit: Min Assist Rolling to right: Min Assist Scooting: Min Assist HOB Elevated Use of bed rail(s) Coin RUE assist rail and trunk elevation Exit right, increased effort/time Transfers/Mobility Sit to stand: Min Assist Stand to sit: Min Assist Educated technique,anterior shift Difficulty low surface Ambulation Ambulation 1 Assistive device(s) used: None Assist level: Min Assist, Hand Held Assist Distance (ft): ~12'x2 Quality of gait: B foot clearance, uneven step length, narrow GALLO, slow carla, reaches for objects to stabilize, RUE reliance for support Balance: seated dynamic supervision. Stance unilat UE support min assist,instability all directions Exercises LUE distal AROM encouraged I.S. 500ml; poor ability, cause patient to gag, dry heave Plan Continue acute PT per plan of care. Safety/Education Safety Safety Devices in place: call light within reach, left in chair, chair alarm in place, gait belt, and nurse notified Restraints: No Education I.S., therex, transfers Outcome Measures AM-PAC AM-PAC Inpatient Mobility Raw Score (No Stairs) : 15 JH-HLM -HLM Score: Walked 10 steps or more (i.e. walked to restroom) Goals Patient Stated Goal: rehab Encounter Problems Encounter Problems (Active) Balance Patient will maintain dynamic standing balance for 3 minutes with CGA in order to demonstrate decreased risk of falling. (Progressing) Start: 04/23/25 Expected End: 05/14/25 Mobility Patient will ambulate 30 feet with CGA and rolling walker in order to improve safety and independence with mobility. (Progressing) Start: 04/23/25 Expected End: 05/14/25 Transfers Patient will perform bed mobility with CGA in order to improve independence and prepare for out of bed mobility. (Progressing) Start: 04/23/25 Expected End: 05/14/25 Patient will complete sit to stand transfer with CGA to wheeled walker in order to improve safety and prepare for out of bed mobility. (Progressing) Start: 04/23/25 Expected End: 05/14/25 Therapy Time Individual Co-treatment Time In 30 Time Out 0955 Minutes 25 Timed Code Treatment Minutes: (fax2) Philomena Preciado PTA [facility] Progress Note Physician Response Please review the following and provide your response below. Please clarify which of the following accurately describes the patient's condition: SDH/R knee hematoma worsened by Xarelto This documentation will become part of the patient's medical record. Normal [facility] Progress Note OCCUPATIONAL THERAPY [facility] Name/MRN: Lesli Rosales ([id number]) Date: 04/28/2025 Attempted to see pt this morning for OT, nursing and doctors at bedside. Will continue to follow. MARILYN Maharaj Normal [facility] Progress Note [facility] Geriatric Medicine Inpatient Consult Service Admission Date: 04/22/2025 Assessment Principal Problem: Acute subdural hematoma (HCC) Active Problems: Fall Closed fracture of multiple ribs of left side with routine healing Closed fracture of left wrist Hematoma Plan Fall with SDH, rib fractures -Multiple risk factors including chronic pain, COPD, deconditioning, decreased hearing -Continue PT/OT as able while inpatient -Vitamin D previously WNL (January 2025) -Check orthostatic vital signs as able -> negative -Medications with associated fall risk include: Atenolol - monitor for bradycardia/hypotension - rare low HR Balcofen - continue only at HS Furosemide - monitor for orthostasis/dehydration Percocet - long-standing med, dose likely reasonable No longer taking gabapentin, amitriptyline at home Acute pain due to trauma Chronic back pain --Recommend scheduled acetaminophen 1g TID with PRN oxycodone (5-10mg, not opioid naive) PRN for breakthrough Lab Results Component Value Date ALT 9 01/23/2025 AST 19 01/23/2025 ALKPHOS 107 01/23/2025 BILITOT 1.2 01/23/2025 -Optimize nonpharmacologic pain treatment modalities. -continue scheduled bowel regimen while on narcotics - recommend continuing on discharge -As above, baclofen only at HS at home, continue HS only here. -Butrans 5mcg at baseline, OK to continue here. -Was no longer taking gabapentin at home, now on 100mg BID, appears to be tolerating oK At risk for delirium --No evidence of at present. --Risk factors: head trauma/head bleed, pain, advanced age, possible medication effect --Encourage PO intake, time up in chair, family visits, supervised ambulation, and sleep hygiene --If agitated, assess for and consider treating for pain --QTc= 467 --No antipsychotic unless patient is danger to self/others/treatment --Continue PRN melatonin at HS --Monitor for constipation/urinary retention - last BM 04/27 --Possible medication contributions: narcotics Declining functional status --Related to acute injuries, chronic pain --Continue PT/OT as able while inpatient --Anticipate d/c to inpatient rehab closer to home, patient agreeable. OK to discharge to inpatient rehab from geriatric perspective Follow-up: 1-2 days Subjective Chief Complaint: fall Geriatrics consulted for Trauma due to fall HPI- The patient is known to me. 85 y.o. year-old female admitted to acute care from home for fall ("and I got woozy and I don't know what happened", only fall in the past 3.5 years). Diagnosed with multiple rib fractures, small subdural hematoma (stable to improved on repeat testing), L wrist fracture, R knee hematoma. Per initial geriatrics consult, lives at home with son. Mild baselien difficulty with short-term memory but not limiting function. Mostly independent at home. Wears O2 PRN. Interval History: Transferred to telemetry. Cooperative with medications. Used PRN oxycodone x 3 yesterday, none overnight. Na 140 this AM, CBC unremarkable. BM 04/27. Working towards inpatient rehab closer to home. Per RN, appears more comfortable since rib block last Monday. Pt reports doing OK. Onoging pain in L shoulder and L ribs, somewhat better after rib block, oxycodone helps. Able to get comfortable and sleep. Appetite is variable. Seen by PT. Mod assist. Ambulated - none. Recommending inpatient rehab. Review of Systems Respiratory: Positive for shortness of breath. Musculoskeletal: Positive for arthralgias and myalgias. Psychiatric/Behavioral: Negative for confusion and sleep disturbance. Objective BP 145/87 (BP Location: Right arm, Patient Position: Lying) Pulse 86 Temp 36.7 ?C (98 ?F) (Temporal) Resp 20 Ht 5' (1.524 m) Wt 136 lb 11 oz (62 kg) SpO2 94% BMI 26.69 kg/m? Intake/Output Summary (Last 24 hours) at 04/28/2025 0846 Last data filed at 04/27/2025 1749 Gross per 24 hour Intake -- Output 1400 ml Net -1400 ml Wt Readings from Last 3 Encounters: 04/28/25 136 lb 11 oz (62 kg) 01/23/25 140 lb (63.5 kg) 06/07/24 160 lb (72.6 kg) Current Medications[1] Physical Exam Constitutional: No acute distress, well-nourished, well kempt Psych: Mood and affect Appropriate. Good eye contact. Cardiovascular: Regular rate and rhythm, no murmur, no BLE edema Pulmonary/Chest: Diminished to auscultation bilaterally, normal respiratory effort, no coughing noted Abdominal: Soft, not distended, no tenderness to palpation, BS present, Neurological: alert, attentive, speech is clear and appropriate , follows commands, no tremor Labs and Imaging: Recent Results (from the past 24 hours) POCT glucose meter Collection Time: 04/27/25 11:57 AM Result Value Ref Range Glucose 99 70 - 100 mg/dL POCT glucose meter Collection Time: 04/27/25 5:41 PM Result Value Ref Range Glucose 138 (H) 70 - 100 mg/dL POCT glucose meter Collection Time: 04/27/25 7:53 PM Result Jose (more content not included)... Normal [facility] Progress Note ------ -- Attestation signed by Ronald Caldwell MD at 05/20/2025 11:05 AM ~~~~~~~~~~~~~~~~~~~~~~~~~~ ~~~~~~~~~~~~~~~~~~~~~~~~~~ ~~~~~~ Attending physician addendum: I independently saw and evaluated the patient. I personally obtained the romero and critical portion of the history and physical exam. I reviewed and agree with the documentation below. I personally reviewed patient's labs and imaging studies. My findings agree with the below note except for any details corrected. I have examined the patient at the date below. I have personally performed a face to face diagnostic evaluation on this patient. I have reviewed and agree with the care plan as documented above by my SHUTTLE DRIVER/KILEY. I personally discussed the review of systems and interviewed the patient along with performing a physical examination. In addition, I discussed the patient's condition and treatment options with him/her when possible. All of the patient's questions were answered and family updated when appropriate and possible. I I performed a physical exam and ROS on the same date of service as above. My findings agree with the above note except for any details corrected below. A complete review of systems was obtained and is negative except as stated in HPI. I have evaluated the patient on 04/28/25 Patient's pain well controlled. Skin necrosis overlying Right knee hematoma - currently no evidence of cellulitis. Apply Bacitracin BID, restart home Lasix for pulmonary hypertension. PT - rehabilitation Chief complain: Left chest pain Problem list: Acute traumatic left frontal and anterior hemispheric subdural hematoma 6mm, no mass effect Acute traumatic left 3 through 7 rib fractures Left shoulder osteoarthritis Right knee hematoma Acute traumatic pain Possible Pre-syncopal fall Constipation Chronic compression fractures of T8, L1 and L2 Atrial fibrillation GERD CHF Pulmonary hypertension Psoriasis Procedures: 04/25 - ES block Management / Plan : Neuro/Spine: -Neurosurgery consulted, recommend the following: Repeat CT head showed improvement in right frontal SDH. Interhemispheric SDH noted on first CT. CT as above No neurosurgical intervention indicated Continue to hold OAC (Xarelto) until OP follow up May start DVT ppx in 48 hrs No need for AED CT head in 1-2 weeks OP - Pain control: Tylenol 1gm q8hrs, Gabapentin 100mg q12hrs, Oxy 5/10mg prn, Dilaudid for breakthrough - Hold home Percocet (Tylenol and Oxy) - Home Baclofen -changed to HS - Home Buprenorphine patch weekly - Palliative consult - Geriatrics consult -Medications with associated fall risk include: Atenolol - monitor for bradycardia/hypotension Balcofen - takes at HS only, recommend decreasing to HS only here Furosemide - monitor for orthostasis/dehydration Percocet - long-standing med, dose likely reasonable No longer taking gabapentin, amitriptyline at home - Cont Melatonin 3mg HS - APS consult-->rib block complete HEENT: - no concerns Cardiovascular: - Hypotension resolved: SBP 94-141 - Home Atenolol 25mg daily- hold for HR <60 or SBP <100 - BP Goal <160 SBP - Telemetry - Orthostatic BPs negative on 04/23 - 04/23- EKG- A-fib, Qtc 467 ms - Repeat Echo 04/23- LVEF 60% mild, aortic valve stenosis, Left atrium severely dilated -last 02/11/21 echo EF 68% - HOLD Xarelto-->until OP follow up with NSGY - Resume home lasix Pulmonary: Hx COPD, CHF -# Acute left 3rd through 7th rib fractures - Multimodal pain control as above - APS rib block completed 04/25 - Daily chest x-rays CXR - Pulmonary congestion, small right pleural effusion-daily chest xrays - 04/27 CXR demonstrated congestion-20 mg Lasix IV x 1 ordered-follow up chest xray a.m. similar - resume Lasix 20mg daily - Aggressive pulm toilet with incentive spirometry- pulling 250-500ml on IS -Cont AccuPAP - Home Symbicort-->substitute Dulera - Home Spiriva - 3% nebs Q12 - Duonebs QID and prn #COPD - standard O2 protocol; patient on as needed oxygen at home, O2 goal SpO2 greater than 88% - wears home oxygen at 2L NC intermittently FEN/GI: - Diet: Carb control - Zofran PRN - bowel regimen- miralax daily and senna BID - Home Vit D - Home Pepcid - Daily BMP : - Estimated Creatinine Clearance: 82 mL/min (A) (by C-G formula based on SCr of 0.42 mg/dL (L)). 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 Normal [facility] XR CHEST 1 VIEWon 04-28-2025 XR CHEST 1 VIEW Patient Name: LESLI HERNANDEZ MS : 1940 Exam Date/Time: 04/28/2025 06:31 Procedure: XR CHEST 1 VIEW Ordering Provider: GARSIA LESLEY Reason For Exam: left rib fx Examination: Portable chest Indication: left rib fx Comparison: Previous day Findings: No significant interval change. Moderate to severe interstitial and alveolar opacities of the lungs, without obvious pneumothorax. Cardiomegaly noted. Reverse right-sided shoulder arthroplasty. Follow-up recommended. IMPRESSION: Impression: As above. Report Dictated on Electronically Signed By: Reina Mcdonald MD Electronically Signed Date/Time: 04/28/2025 8:05 AM EDT Normal [facility] XR Chest Single viewon 04-28 Impression: As above. Report Dictated on Electronically Signed By: Reina Mcdonald MD Electronically Signed Date/Time: 04/28/2025 8:05 AM EDT [facility] Patient Name: LESLI HERNANDEZ MS : 1940 Exam Date/Time: 04/28/2025 06:31 Procedure: XR CHEST 1 VIEW Ordering Provider: GARSIA LESLEY Reason For Exam: left rib fx Examination: Portable chest Indication: left rib fx Comparison: Previous day Findings: No significant interval change. Moderate to severe interstitial and alveolar opacities of the lungs, without obvious pneumothorax. Cardiomegaly noted. Reverse right-sided shoulder arthroplasty. Follow-up recommended. [facility] Reina Mcdonald MD - 04/28/2025 Patient Name: LESLI ROSALES : 1940 Exam Date/Time: 04/28/2025 06:31 Procedure: XR CHEST 1 VIEW Ordering Provider: GARSIA LESLEY Reason For Exam: left rib fx Examination: Portable chest Indication: left rib fx Comparison: Previous day Findings: No significant interval change. Moderate to severe interstitial and alveolar opacities of the lungs, without obvious pneumothorax. Cardiomegaly noted. Reverse right-sided shoulder arthroplasty. Follow-up recommended. IMPRESSION: Impression: As above. Report Dictated on Electronically Signed By: Reina Mcdonald MD Electronically Signed Date/Time: 04/28/2025 8:05 AM EDT [facility] Radiology Study observation (narrative) [facility] XR Chest Single viewOrdered By: Reina Mcdonald on 04-28-2025 [facility] [employer] Work Phone: ANTI-XA LEVEL, LMWHon 2024 ANTI-XA TREATMENT INDICATION Prophylactic Normal [facility] Comment on above: Performed By: #### L [id number] ####[facility] Work[facility] Hospital: ANGELICA LUZ ([phone])[facility])[address] [place] [address] ANTI-XA, LMWH/UFH 0.4 IU/mL Normal 0.2-0.5 [Prophylac tic] [facility] Comment on above: Performed By: #### L [id number] ####[facility] Work[facility]: ANGELICA LUZ ([phone])[facility])[address] [place] [address] BASIC METABOLIC PANELon 09-0 Anion gap [Moles/Vol] 5 mmol/L Normal 3-13 [facility] Comment on above: Performed By: #### L AB15 ####[facility] Worker Hospital: ANGELICA LUZ ([phone])[facility])[address] [place] [address] Calcium [Mass/Vol] 8.7 mg/dL Low 8.8-10.0 [facility] Comment on above: Performed By: #### L AB15 ####[facility] Service Worker Hospital: ANGELICA [id number])[facility])[address] [place] [address] Chloride [Moles/Vol] 106 mmol/L Normal 98-107 [facility] Comment on above: Performed By: #### L AB15 ####[facility] Worker [facility]: ANGELICA LUZ ([id number])[facility])[address] [place] [address] CO2 [Moles/Vol] 30 mmol/L Normal 23-31 [facility] Comment on above: Performed By: #### L AB15 ####[facility] Worker [facility]: ANGELICA LUZ ([phone])[facility])[address] [place] [address] Creatinine [Mass/Vol] 0.47 mg/dL Low 0.57-1.11 [facility] Comment on above: Performed By: #### L AB15 ####[facility] Worker [facility]: ANGELICA LUZ ([id number])[facility] ([facility])[address] [place] [address] GLOMERULAR FILTRATION RATE ML/MIN/1.73 SQ M.PREDICTED >90.0 Normal >60.0 [facility] Comment on above: Result Comment: Calc ulation based on the Chronic Kidney Disease Epidemiology Collaboration (CKD-EPI) equation refit without adjustment for race Performed By: #### L AB15 ####[facility] Service Worker [facility]: ANGELICA LUZ ([id number])[facility] ([facility])[address] [place] [address] Glucose [Mass/Vol] 95 mg/dL Normal 82-115 [facility] Comment on above: Performed By: #### L AB15 ####[facility] Service Worker Hospital: ANGELICA LUZ ([id number])[facility])[address] [place] [address] [place] Potassium [Moles/Vol] 3.9 mmol/L Normal 3.5-5.1 [facility] Comment on above: Result Comment: [facility] potassium values may be up to 0.5 mmol/L lower than serum values. Performed By: #### L AB15 ####[facility] Service Worker Hospital: ANGELICA LUZ ([id number])[facility] ([facility])[address] [place] [address] Sodium [Moles/Vol] 141 mmol/L Normal 136-145 [facility] Comment on above: Performed By: #### L AB15 ####[facility] Service Worker Hospital: ANGELICA LUZ ([id number])[facility])[address] [place] [address] Urea nitrogen [Mass/Vol] 25 mg/dL High 9-23 [facility] Comment on above: Performed By: #### L AB15 ####[facility] Service Worker Hospital: ANGELICA LUZ ([id number])[facility])[address] [place] [address] Bacteria identified Cx Nom ( U)Ordered By: Darlin Aguiar on 04-27-2025 Interpretation and review of laboratory results Abnormal [facility] Basic metabolic 1998 panelon 04-27-2025 Anion gap [Moles/Vol] 5 mmol/L 3 - 13 mmol/L [facility] Calcium [Mass/Vol] 8.7 mg/dL Low 8.8 - 10. 0 mg/dL [facility] Chloride [Moles/Vol] 106 mmol/L 98 - 10 7 mmol/L [facility] CO2 [Moles/Vol] 30 mmol/L 23 - 31 mmol/L [facility] Creatinine [Mass/Vol] 0.47 mg/dL Low 0.57 - 1.11 mg/dL [facility] GFR/1.73 sq M.predicted (S/P/Bld) [Vol rate/Area] - PINF [facility] Comment on above: Calculation based on the Chronic Kidney Disease Epidemiology Collaboration (CKD-EPI) equation refit without adjustment for race Glucose [Mass/Vol] 95 mg/dL 82 - 115 mg/dL [facility] Interpretation and review of laboratory results Abnormal [facility] Potassium [Moles/Vol] 3.9 mmol/L 3.5 - 5.1 mmol/L [facility] Comment on above: Plasma potassium jose ues may be up to 0.5 mmol/L lower than serum values. Sodium [Moles/Vol] 141 mmol/L 136 - 145 mmol/L [facility] Urea nitrogen [Mass/Vol] 25 mg/dL High 9 - 23 mg/dL [facility] CBC W Auto Differential pane l (Bld)on 04-27-2025 Basophils (Bld) [#/Vol] 0 10*3/uL 0.0 - 0.2 10*3/uL [facility] Basophils/100 WBC (Bld) 0.4 % 0.0 - 2.0 % [facility] Eosinophils (Bld) [#/Vol] 0.2 10*3/uL 0.0 - 0.5 10*3/uL [facility] Eosinophils/100 WBC (Bld) 1.5 % 0.0 - 6.0 % [facility] Erythrocyte distribution width (RBC) [Ratio] 13.8 % 11.5 - 15.0 % [facility] Hematocrit (Bld) [Volume fraction] 41 % 35.0 - 47.0 % [facility] Hemoglobin (Bld) [Mass/Vol] 13 g/dL 11.7 - 16.0 g/dL [facility] Immature granulocytes (Bld) [#/Vol] 0.1 10*3/uL High NINF - 0.1 10*3/uL [facility] Immature granulocytes/100 WBC (Bld) 0.5 % 0.0 - 2.0 % [facility] Interpretation and review of laboratory results Abnormal [facility] Lymphocytes (Bld) [#/Vol] 1.8 10*3/uL 1.0 - 4.3 10*3/uL [facility] Lymphocytes/100 WBC (Bld) 18 % 15.0 - 45.0 % [facility] MCH (RBC) [Entitic mass] 33.2 pg 26.0 - 34.0 pg [facility] MCHC (RBC) [Mass/Vol] 31.7 % 30.5 - 36.0 % [facility] MCV (RBC) [Entitic vol] 104.6 fL High 77.0 - 99.0 fL [facility] Monocytes (Bld) [#/Vol] 1.1 10*3/uL High 0.0 - 0.9 10*3/uL [facility] Monocytes/100 WBC (Bld) 11.4 % 5.0 - 13.0 % [facility] Neutrophils (Bld) [#/Vol] 6.8 10*3/uL 1.8 - 7.5 10*3/uL [facility] Neutrophils/100 WBC (Bld) 68.2 % 38.0 - 82.0 % [facility] Nucleated RBC/100 WBC (Bld) [Ratio] 0 % [facility] Platelet mean volume (Bld) [Entitic vol] 11 fL 9.0 - 12.7 fL [facility] Platelets (Bld) [#/Vol] 170 10*3/uL 140 - 440 10*3/uL [facility] RBC (Bld) [#/Vol] 3.92 10*6/uL 3.80 - 5.20 10*6/uL [facility] WBC (Bld) [#/Vol] 10 10*3/uL 3.6 - 10.7 10*3/uL [facility] CBC WITH AUTO DIFFERENTIALon 04-27-2025 Basophils (Bld) [#/Vol] 0.0 10*3/uL Normal 0.0-0.2 [facility] Comment on above: Performed By: #### L [id number] ####[facility] Service Worker Hospital: ANGELICA LUZ ([id number])[facility])[address] [place] [address] Basophils/100 WBC (Bld) 0.4 % Normal 0.0-2.0 [facility] Comment on above: Performed By: #### L [id number] ####[facility] Service Worker Hospital: ANGELICA LUZ ([id number])[facility])[address] [place] [address] Eosinophils (Bld) [#/Vol] 0.2 10*3/uL Normal 0.0-0.5 [facility] Comment on above: Performed By: #### L [id number] ####[facility] Worker [facility]: ANGELICA LUZ ([id number])[facility])[address] [place] [address] Eosinophils/100 WBC (Bld) 1.5 % Normal 0.0-6.0 [facility] Comment on above: Performed By: #### L [id number] ####[facility]: ANGELICA LUZ ([id number])[facility])[address] [place] [address] Erythrocyte distribution width (RBC) [Ratio] 13.8 % Normal 11.5-15.0 [facility] Comment on above: Performed By: #### L [id number] ####[facility]: ANGELICA LUZ ([id number])[facility])[address] [place] [address] Hematocrit (Bld) [Volume fraction] 41.0 % Normal 35.0-47.0 [facility] Comment on above: Performed By: #### L [id number] ####[facility]: ANGELICA LUZ ([id number])[facility])[address] [place] [address] Hemoglobin (Bld) [Mass/Vol] 13.0 g/dL Normal 11.7-16.0 [facility] Comment on above: Performed By: #### L [id number] ####[facility]: ANGELICA LUZ ([id number])[facility])[address] [place] [address] IMMATURE GRANS % 0.5 % Normal 0.0-2.0 [facility] Comment on above: Performed By: #### L [id number] ####[facility]: ANGELICA LUZ ([id number])[facility])[address] [place] [address] IMMATURE GRANS ABSOLUTE 0.1 10*3/uL High <0.1 [facility] Comment on above: Performed By: #### L [id number] ####[facility]: ANGELICA LUZ ([id number])[facility])[address] [place] [address] Lymphocytes (Bld) [#/Vol] 1.8 10*3/uL Normal 1.0-4.3 [facility] Comment on above: Performed By: #### L [id number] ####[facility]: ANGELICA LUZ ([id number])[facility])[address] [place] [address] Lymphocytes/100 WBC (Bld) 18.0 % Normal 15.0-45.0 [facility] Comment on above: Performed By: #### L [id number] ####[facility]: ANGELICA [id number])[facility] ([facility])[address] [place] [address] MCH (RBC) [Entitic mass] 33.2 pg Normal 26.0-34.0 [facility] Comment on above: Performed By: #### L [id number] ####[facility]: ANGELICA LUZ ([id number])[facility])[address] [place] [address] MCHC 31.7 % Normal 30.5-36.0 [facility] Comment on above: Performed By: #### L [id number] ####[facility]: ANGELICA LUZ ([id number])[facility])[address] [place] [address] MCV (RBC) [Entitic vol] 104.6 fL High 77.0-99.0 [facility] Comment on above: Performed By: #### L [id number] ####[facility]: ANGELICA LUZ ([id number])[facility])[address] [place] [address] Monocytes (Bld) [#/Vol] 1.1 10*3/uL High 0.0-0.9 [facility] Comment on above: Performed By: #### L [id number] ####[facility]: ANGELICA LUZ ([id number])[facility])[address] [place] [address] Monocytes/100 WBC (Bld) 11.4 % Normal 5.0-13.0 [facility] Comment on above: Performed By: #### L [id number] ####[facility]: ANGELICA LUZ ([id number])[facility])[address] [place] [address] NEUTROPHILS ABSOLUTE 6.8 10*3/uL Normal 1.8-7.5 [facility] Comment on above: Performed By: #### L [id number] ####[facility]: ANGELICA LUZ ([id number])[facility])[address] [place] [address] Neutrophils/100 WBC (Bld) 68.2 % Normal 38.0-82.0 [facility] Comment on above: Performed By: #### L [id number] ####[facility]: ANGELICA LUZ ([id number])[facility])[address] [place] [address] NRBC 0.0 /100 WBCs Normal 0.0-2.0 [facility] Comment on above: Performed By: #### L [id number] ####[facility]: ANGELICA LUZ ([id number])[facility] ([facility])[address] [place] [address] Platelet mean volume (Bld) [Entitic vol] 11.0 fL Normal 9.0-12.7 [facility] Comment on above: Performed By: #### L [id number] ####[facility]: ANGELICA LUZ ([id number])[facility])[address] [place] [address] Platelets (Bld) [#/Vol] 170 10*3/uL Normal 140-440 [facility] Comment on above: Performed By: #### L [id number] ####[facility]: ANGELICA LUZ ([id number])[facility])[address] [place] [address] RBC (Bld) [#/Vol] 3.92 10*6/uL Normal 3.80-5.20 [facility] Comment on above: Performed By: #### L [id number] ####[facility]: ANGELICA LUZ ([id number])[facility] ([facility])[address] [place] [address] WBC (Bld) [#/Vol] 10.0 10*3/uL Normal 3.6-10.7 [facility] Comment on above: Performed By: #### L [id number] ####[facility]: ANGELICA LUZ ([id number])[facility])[address] [place] [address] Laboratory - Chemistry and C hemistry - challengeon 04-27-2025 Glucose [Mass/Vol] 131 mg/dL High 70 - 100 mg/dL [facility] Glucose [Mass/Vol] 138 mg/dL High 70 - 100 mg/dL [facility] Glucose [Mass/Vol] 99 mg/dL 70 - 100 mg/dL [facility] Glucose [Mass/Vol] 121 mg/dL High 70 - 100 mg/dL [facility] Glucose [Mass/Vol] 67 mg/dL Low 70 - 100 mg/dL [facility] Laboratory - Microbiology an d Antimicrobial susceptibilityOrdered By: Darlin Aguiar on 04-27-2025 Bacteria identified Cx Nom (U) Normal urogenital liseth present [facility] Bacteria identified Cx Nom (U) >100,000 CFU/mL Proteus mirabilis Abnormal [facility] Bacteria identified Cx Nom (U) 50,000-90,000 CFU/mL Enterococcus faecalis Abnormal [facility] Comment on above: Susceptibility testi ng performed only upon request for cultures with multiple types of microorganisms below 100,000 CFU/ml. No Panel Informationon 04-27 Interpretation and review of laboratory results Abnormal [facility] Performed by: [address] [address] CLIA ID: [id number] [facility] Interpretation and review of laboratory results Abnormal [facility] Performed by: [address] [address] CLIA ID: [id number] [facility] Interpretation and review of laboratory results Normal [facility] Performed by: [address] [address] CLIA ID: [id number] [facility] Interpretation and review of laboratory results Abnormal [facility] Performed by: [address] [address] CLIA ID: [id number] [facility] Interpretation and review of laboratory results Abnormal [facility] Performed by: [address] [address] CLIA ID: [id number] [facility] Anti[facility]Xa, [facility] 0.4 [facility] Indication Prophylactic [facility] Progress Noteon 04-27-2025 Progress Note ------ -- Attestation signed by Domonique Gonzalez MD at 04/27/2025 2:38 PM ~~~~~~~~~~~~~~~~~~~~~~~~~~ ~~~~~~~~~~~~~~~~~~~~~~~~~~ ~~~~~~~~~ ATTENDING ADDENDUM Problem List[1] I have personally performed a face to face diagnostic evaluation on this patient. I have reviewed and agree with the care plan as documented above by my SHUTTLE DRIVER/KILEY. I personally discussed the review of systems and interviewed the patient along with performing a physical examination. In addition, I discussed the patient's condition and treatment options with him/her when possible. All of the patient's questions were answered and family updated when appropriate and possible. I I performed a physical exam and ROS on the same date of service as above. My findings agree with the above note except for any details corrected below. A complete review of systems was obtained and is negative except as stated in HPI. HPI: 85 y.o. female status post fall from standing height the incident happened around afternoon on 04/22. The patient was walking through her living room after folding some laundry and fell to the ground striking her right knee and left chest. She is unable to identify the cause of her fall however she does report that she was feeling somewhat dizzy and had a headache throughout the day preceding the fall. She denies any loss of consciousness. Her pain is currently 8/10. She is on Xarelto for A-fib. Patient initially presented to [facility] and was found to have a subdural hematoma 6 mm. She was given PCC prior to transfer for direct admission to T2 ICU. Imaging reviewed and independently interpreted: CT chest reviewed -multiple acute/chronic rib fractures --> suspect acute 3 through 7 rib fractures anterior on the L CTH - left frontal and interhemispheric subdural hematoma measuring 6 mm without mass effect CT urogram - Mildly enlarged, calcified left iliac nodes, nonspecific but may be due to prior granulomatous disease. - Moderate stool throughout the colon. Consider constipation. Problem list: Acute, acute on chronic, unstable or uncontrolled chronic problems/diagnoses: Acute traumatic left frontal and anterior hemispheric subdural hematoma 6mm, no mass effect Acute traumatic left 3 through 7 rib fractures Left shoulder osteoarthritis and a right knee hematoma Acute traumatic pain ?Pre-syncopal fall Constipation Incidental - Chronic compression fractures of T8, L1 and L2 Stable chronic problems, affecting patient care: Past Medical History Diagnosis Date Arthritis Atrial fibrillation (HCC) Chronic obstructive pulmonary disease (HCC) 08/24/2017 Chronic pain Congestive heart failure (CHF) ([facility]) GERD (gastroesophageal reflux disease) Hypertension Osteoarthritis Pain management Psoriasis 24h: Complains of L rib pain - Rib pain stable Complains of L shoulder pain - unchanged - Patient is not maximizing oral pain regimen -I explained to the patient that she needs to ask for the oral pain meds and that she can get them every 4 hours - discussed with Ortho - Patient was previously seen by the orthopedic team on 04/23/2025 and found to have left shoulder osteoarthritis right knee hematoma. Patient was updated on her diagnoses and plan of care which for now will be pain control per primary team and outpatient patient follow-up as needed if she continues to have shoulder pain following hospital discharge. No acute operative intervention is indicated. --> plan for follow up outpatient Patient complains of Morales wrap on her right knee being too tight - This was loosened - Continue Morales to right knee DC L arm splint -this was placed for comfort, patient denies pain in wrist Orthostatics neg Hgb stable at 13.7 DC labs Urology started ancef --> change to rocephin - urine culture --> proteus Mirabilis and Enterococcus faecalis Chest x-ray consistent with hypervolemia -20 cc of Lasix today IV -repeat CXR tomorrow -May require multiple rounds of diuresis Plan: Neurological system #Acute traumatic left frontal and anterior hemispheric subdural hematoma 6mm, no mass effect - Patient received PCC at the OSH for Xarelto - No seizure prophylaxis at this time - Repeat CT in the morning - Elevate head of bed 30 degrees -No neurosurgical intervention indicated -Continue to hold OAC until OP follow up -May start DVT ppx in 48 hrs -No need for AED -CT head in 1-2 weeks OP # Chronic pain - Home amitriptyline --> no longer taking - Home baclofen nightly - home butrans #Acute pain - Multimodal pain control # At risk for delirium/acute encephalopathy - Delirium precautions: increase activity, limit nighttime disturbances, and avoid anticholinergic meds, benzos, etc Circulatory system # Atrial fibrillation, hypertension, HFpEF - 02/11/21 echo EF 68% - Hold Xarelto - atenolol 25 mg - Home Jardian (more content not included)... Normal [facility] XR CHEST 1 VIEWon 04-27-2025 XR CHEST 1 VIEW Patient Name[facility]Z [facility] 1940 [id number] Exam Date/Time: 04/27/2025 07:08 Procedure: XR CHEST 1 VIEW Ordering Provider: GARSIA LESLEY Reason For Exam: left rib fx EXAM TYPE: RADIOLOGIC EXAMINATION, CHEST, SINGLE VIEW FRONTAL (CXR SINGLE VIEW) EXAM DATE AND TIME: 04/27/2025 7:08 AM EDT INDICATION: Rib fracture COMPARISON: 04/26/2025 TECHNIQUE: A single portable frontal view of the thorax was obtained and reviewed. Special views: None. IMPRESSION: 1. Lines/Tubes/Devices/Hardwa re: Again seen is right shoulder arthroplasty, vertebral cement. Please confirm position and function of any catheters or attempted catheters clinically. 2. Lungs: Stable appearance of coarse interstitial prominence. No interval major volume loss.. Consider follow-up with PA and lateral chest for persistent symptoms. 3. Pleura: Small effusions. No significant pneumothorax. 4. Heart and mediastinum: Prominent cardiac silhouette. 5. Upper abdomen: No acute process seen. 6. Thorax:No acute bony process Report Dictated on Electronically Signed By: Wilder Cameron MD Electronically Signed Date/Time: 04/27/2025 8:19 AM EDT Normal [facility] XR Chest Single viewon 04-27 1. Lines/Tubes/Devices/Hardwa re: Again seen is right shoulder arthroplasty, vertebral cement. Please confirm position and function of any catheters or attempted catheters clinically. 2. Lungs: Stable appearance of coarse interstitial prominence. No interval major volume loss.. Consider follow-up with PA and lateral chest for persistent symptoms. 3. Pleura: Small effusions. No significant pneumothorax. 4. Heart and mediastinum: Prominent cardiac silhouette. 5. Upper abdomen: No acute process seen. 6. Thorax:No acute bony process Report Dictated on Electronically Signed By: Wilder Cameron MD Electronically Signed Date/Time: 04/27/2025 8:19 AM EDT [facility] RADIOLOGY SYSTEM Patient Name: LESLI HERNANDEZ MS : 1940 Exam Date/Time: 04/27/2025 07:08 Procedure: XR CHEST 1 VIEW Ordering Provider: GARSIA LESLEY Reason For Exam: left rib fx EXAM TYPE: RADIOLOGIC EXAMINATION, CHEST, SINGLE VIEW FRONTAL (CXR SINGLE VIEW) EXAM DATE AND TIME: 04/27/2025 7:08 AM EDT INDICATION: Rib fracture COMPARISON: 04/26/2025 TECHNIQUE: A single portable frontal view of the thorax was obtained and reviewed. Special views: None. [facility] Wilder Cameron MD - 04/27/2025 Patient Name: LESLI ROSALES : 1940 Exam Date/Time: 04/27/2025 07:08 Procedure: XR CHEST 1 VIEW Ordering Provider: GARSIA LESLEY Reason For Exam: left rib fx EXAM TYPE: RADIOLOGIC EXAMINATION, CHEST, SINGLE VIEW FRONTAL (CXR SINGLE VIEW) EXAM DATE AND TIME: 04/27/2025 7:08 AM EDT INDICATION: Rib fracture COMPARISON: 04/26/2025 TECHNIQUE: A single portable frontal view of the thorax was obtained and reviewed. Special views: None. IMPRESSION: 1. Lines/Tubes/Devices/Hardwa re: Again seen is right shoulder arthroplasty, vertebral cement. Please confirm position and function of any catheters or attempted catheters clinically. 2. Lungs: Stable appearance of coarse interstitial prominence. No interval major volume loss.. Consider follow-up with PA and lateral chest for persistent symptoms. 3. Pleura: Small effusions. No significant pneumothorax. 4. Heart and mediastinum: Prominent cardiac silhouette. 5. Upper abdomen: No acute process seen. 6. Thorax:No acute bony process Report Dictated on Electronically Signed By: Wilder Cameron MD Electronically Signed Date/Time: 04/27/2025 8:19 AM EDT [facility] Radiology Study observation (narrative) [facility] BASIC METABOLIC PANELon 09-0 Anion gap [Moles/Vol] 6 mmol/L Normal 3-13 [facility] Comment on above: Performed By: #### L [id number] ####[facility]: ANGELICA LUZ ([id number])[facility])[address] [place] [address] Calcium [Mass/Vol] 9.2 mg/dL Normal 8.8-10.0 [facility] Comment on above: Performed By: #### L [id number] ####[facility]: ANGELICA LUZ ([id number])[facility] ([facility])[address] [place] [address] Chloride [Moles/Vol] 107 mmol/L Normal 98-107 [facility] Comment on above: Performed By: #### L [id number] ####[facility]: ANGELICA LUZ ([id number])[facility] ([facility])[address] [place] [address] CO2 [Moles/Vol] 29 mmol/L Normal 23-31 [facility] Comment on above: Performed By: #### L [id number] ####[facility]: ANGELICA LUZ ([id number])[facility])[address] [place] [address] Creatinine [Mass/Vol] 0.46 mg/dL Low 0.57-1.11 [facility] Comment on above: Performed By: #### L [id number] ####[facility]: ANGELICA LUZ ([id number])[facility])[address] [place] [address] GLOMERULAR FILTRATION RATE ML/MIN/1.73 SQ M.PREDICTED >90.0 Normal >60.0 [facility] Comment on above: Result Comment: Calc ulation based on the Chronic Kidney Disease Epidemiology Collaboration (CKD-EPI) equation refit without adjustment for race Performed By: #### L [id number] ####[facility]: ANGELICA LUZ ([id number])[facility])[address] [place] [address] Glucose [Mass/Vol] 83 mg/dL Normal 82-115 [facility] Comment on above: Performed By: #### L [id number] ####[facility]: ANGELICA LUZ ([id number])[facility])[address] [place] [address] Potassium [Moles/Vol] 4.3 mmol/L Normal 3.5-5.1 [facility] Comment on above: Result Comment: [facility] potassium values may be up to 0.5 mmol/L lower than serum values. Performed By: #### L [id number] ####[facility]: ANGELICA LUZ ([phone])[facility])[address] [place] [address] Sodium [Moles/Vol] 142 mmol/L Normal 136-145 [facility] Comment on above: Performed By: #### L [id number] ####[facility]: ANGELICA LUZ ([id number])[address] Urea nitrogen [Mass/Vol] 25 mg/dL High 9-23 [facility] Comment on above: Performed By: #### L [id number] ####[facility]: ANGELICA LUZ ([id number])[address] Basic metabolic 1998 panelon 04-26-2025 Anion gap [Moles/Vol] 6 mmol/L 3 - 13 mmol/L [facility] Calcium [Mass/Vol] 9.2 mg/dL 8.8 - 10. 0 mg/dL [facility] Chloride [Moles/Vol] 107 mmol/L 98 - 10 7 mmol/L [facility] CO2 [Moles/Vol] 29 mmol/L 23 - 31 mmol/L [facility] Creatinine [Mass/Vol] 0.46 mg/dL Low 0.57 - 1.11 mg/dL [facility] GFR/1.73 sq M.predicted (S/P/Bld) [Vol rate/Area] - PINF [facility] Comment on above: Calculation based on the Chronic Kidney Disease Epidemiology Collaboration (CKD-EPI) equation refit without adjustment for race Glucose [Mass/Vol] 83 mg/dL 82 - 115 mg/dL [facility] Interpretation and review of laboratory results Abnormal [facility] Potassium [Moles/Vol] 4.3 mmol/L 3.5 - 5.1 mmol/L [facility] Comment on above: Plasma potassium jose ues may be up to 0.5 mmol/L lower than serum values. Sodium [Moles/Vol] 142 mmol/L 136 - 145 mmol/L [facility] Urea nitrogen [Mass/Vol] 25 mg/dL High 9 - 23 mg/dL [facility] CBC W Auto Differential pane l (Bld)Ordered By: Sabina Ray on 04-26-2025 Basophils (Bld) [#/Vol] 0 10*3/uL 0.0 - 0.2 10*3/uL [facility] Basophils/100 WBC (Bld) 0.2 % 0.0 - 2.0 % [facility] Eosinophils (Bld) [#/Vol] 0 10*3/uL 0.0 - 0.5 10*3/uL [facility] Eosinophils/100 WBC (Bld) 0.2 % 0.0 - 6.0 % [facility] Erythrocyte distribution width (RBC) [Ratio] 13.7 % 11.5 - 15.0 % [facility] Hematocrit (Bld) [Volume fraction] 44.3 % 35.0 - 47.0 % [facility] Hemoglobin (Bld) [Mass/Vol] 13.7 g/dL 11.7 - 16.0 g/dL [facility] Immature granulocytes (Bld) [#/Vol] 0.1 10*3/uL High NINF - 0.1 10*3/uL [facility] Immature granulocytes/100 WBC (Bld) 0.6 % 0.0 - 2.0 % [facility] Interpretation and review of laboratory results Abnormal [facility] Lymphocytes (Bld) [#/Vol] 1.2 10*3/uL 1.0 - 4.3 10*3/uL [facility] Lymphocytes/100 WBC (Bld) 12.6 % Low 15.0 - 45.0 % [facility] MCH (RBC) [Entitic mass] 32.6 pg 26.0 - 34.0 pg [facility] MCHC (RBC) [Mass/Vol] 30.9 % 30.5 - 36.0 % [facility] MCV (RBC) [Entitic vol] 105.5 fL High 77.0 - 99.0 fL [facility] Monocytes (Bld) [#/Vol] 0.7 10*3/uL 0.0 - 0.9 10*3/uL [facility] Monocytes/100 WBC (Bld) 7.5 % 5.0 - 13.0 % [facility] Neutrophils (Bld) [#/Vol] 7.6 10*3/uL High 1.8 - 7.5 10*3/uL [facility] Neutrophils/100 WBC (Bld) 78.9 % 38.0 - 82.0 % [facility] Nucleated RBC/100 WBC (Bld) [Ratio] 0 % [facility] Platelet mean volume (Bld) [Entitic vol] 10.9 fL 9.0 - 12.7 fL [facility] Platelets (Bld) [#/Vol] 154 10*3/uL 140 - 440 10*3/uL [facility] RBC (Bld) [#/Vol] 4.2 10*6/uL 3.80 - 5.20 10*6/uL [facility] WBC (Bld) [#/Vol] 9.6 10*3/uL 3.6 - 10.7 10*3/uL [facility] CBC WITH AUTO DIFFERENTIALon 04-26-2025 Basophils (Bld) [#/Vol] 0.0 10*3/uL Normal 0.0-0.2 [facility] Comment on above: Performed By: #### L [id number] #### [facility]: ANGELICA LUZ ([id number]) [facility] ([facility]) [address] [place] [address] Basophils/100 WBC (Bld) 0.2 % Normal 0.0-2.0 [facility] Comment on above: Performed By: #### L [id number] #### [facility]: ANGELICA LUZ ([id number]) [facility] ([facility]) [address] [place] [address] Eosinophils (Bld) [#/Vol] 0.0 10*3/uL Normal 0.0-0.5 [facility] Comment on above: Performed By: #### L [id number] #### [facility]: ANGELICA LUZ ([id number]) [facility]) [address] [place] [address] Eosinophils/100 WBC (Bld) 0.2 % Normal 0.0-6.0 [facility] Comment on above: Performed By: #### L [id number] #### [facility]: ANGELICA LUZ ([id number]) [facility]) [address] [place] [address] Erythrocyte distribution width (RBC) [Ratio] 13.7 % Normal 11.5-15.0 [facility] Comment on above: Performed By: #### L [id number] #### [facility]: ANGELICA LUZ ([id number]) [facility]) [address] [place] [address] Hematocrit (Bld) [Volume fraction] 44.3 % Normal 35.0-47.0 [facility] Comment on above: Performed By: #### L [id number] #### [facility]: ANGELICA LUZ ([id number]) [facility]) [address] [place] [address] Hemoglobin (Bld) [Mass/Vol] 13.7 g/dL Normal 11.7-16.0 [facility] Comment on above: Performed By: #### L [id number] #### [facility]: ANGELICA LUZ ([id number]) [facility]) [address] [place] [address] IMMATURE GRANS % 0.6 % Normal 0.0-2.0 [facility] Comment on above: Performed By: #### L [id number] #### [facility]: ANGELICA LUZ ([id number]) [facility]) [address] [place] [address] IMMATURE GRANS ABSOLUTE 0.1 10*3/uL High <0.1 [facility] Comment on above: Performed By: #### L [id number] #### [facility]: ANGELICA LUZ ([id number]) [facility]) [address] [place] [address] Lymphocytes (Bld) [#/Vol] 1.2 10*3/uL Normal 1.0-4.3 [facility] Comment on above: Performed By: #### L [id number] #### [facility]: ANGELICA LUZ ([id number]) [facility]) [address] [place] [address] Lymphocytes/100 WBC (Bld) 12.6 % Low 15.0-45.0 [facility] Comment on above: Performed By: #### L [id number] #### [facility]: ANGELICA LUZ ([id number]) [facility]) [address] [place] [address] MCH (RBC) [Entitic mass] 32.6 pg Normal 26.0-34.0 [facility] Comment on above: Performed By: #### L [id number] #### [facility]: ANGELICA LUZ ([id number]) [facility]) [address] [place] [address] MCHC 30.9 % Normal 30.5-36.0 [facility] Comment on above: Performed By: #### L [id number] #### [facility]: ANGELICA LUZ ([id number]) [facility]) [address] [place] [address] MCV (RBC) [Entitic vol] 105.5 fL High 77.0-99.0 [facility] Comment on above: Performed By: #### L [id number] #### [facility]: ANGELICA LUZ ([id number]) [facility]) [address] [place] [address] Monocytes (Bld) [#/Vol] 0.7 10*3/uL Normal 0.0-0.9 [facility] Comment on above: Performed By: #### L [id number] #### [facility]: ANGELICA LUZ ([id number]) [facility] [address] [place] [address] Monocytes/100 WBC (Bld) 7.5 % Normal 5.0-13.0 [facility] Comment on above: Performed By: #### L [id number] #### [facility]: ANGELICA LUZ ([id number]) [facility] [address] [place] [address] NEUTROPHILS ABSOLUTE 7.6 10*3/uL High 1.8-7.5 [facility] Comment on above: Performed By: #### L [id number] #### [facility]: ANGELICA LUZ ([id number]) [facility] ([facility]) [address] [place] [address] Neutrophils/100 WBC (Bld) 78.9 % Normal 38.0-82.0 [facility] Comment on above: Performed By: #### L [id number] #### [facility]: ANGELICA LUZ ([id number]) [facility] ([facility]) [address] [place] [address] NRBC 0.0 /100 WBCs Normal 0.0-2.0 [facility] Comment on above: Performed By: #### L [id number] #### [facility]: ANGELICA LUZ ([id number]) [facility] ([facility]) [address] [place] [address] Platelet mean volume (Bld) [Entitic vol] 10.9 fL Normal 9.0-12.7 [facility] Comment on above: Performed By: #### L [id number] #### [facility]: ANGELICA LUZ ([id number]) [facility] ([facility]) [address] [place] [address] [place] Platelets (Bld) [#/Vol] 154 10*3/uL Normal 140-440 [facility] Comment on above: Performed By: #### L [id number] #### [facility]: ANGELICA LUZ ([id number]) [facility] ([facility]) [address] [place] [address] [place] RBC (Bld) [#/Vol] 4.20 10*6/uL Normal 3.80-5.20 [facility] Comment on above: Performed By: #### L [id number] #### [facility]: ANGELICA LUZ ([id number]) [facility] [address] [place] [address] WBC (Bld) [#/Vol] 9.6 10*3/uL Normal 3.6-10.7 [facility] Comment on above: Performed By: #### L [id number] #### [facility]: ANGELICA LUZ ([id number]) [facility] ([facility]) [address] [place] [address] Laboratory - Chemistry and C hemistry - challengeon 04-26-2025 Glucose [Mass/Vol] 80 mg/dL 70 - 100 mg/dL [facility] Glucose [Mass/Vol] 95 mg/dL 70 - 100 mg/dL [facility] Glucose [Mass/Vol] 88 mg/dL 70 - 100 mg/dL [facility] Glucose [Mass/Vol] 82 mg/dL 70 - 100 mg/dL [facility] No Panel Informationon 04-26 Interpretation and review of laboratory results Normal [facility] Performed by: [place] [address] CLIA ID: [id number] [facility] Interpretation and review of laboratory results Normal [facility] Performed by: [place] [address] CLIA ID: [id number] [facility] Interpretation and review of laboratory results Normal [facility] Performed by: [place] [address] CLIA ID: [id number] [facility] Interpretation and review of laboratory results Normal [facility] Performed by: [place] [address] CLIA ID: [id number] [facility] Nursing Noteon 04-26-2025 Nursing Note Bed bath performed b y Alyssa PCT, linens changed, lotion applied to patient's skin after. Patient very happy. Call light within reach. Normal [facility] Progress Noteon 04-26-2025 Progress Note ------ -- Attestation signed by Domonique Gonzalez MD at 04/27/2025 8:01 AM ~~~~~~~~~~~~~~~~~~~~~~~~~~ ~~~~~~~~~~~~~~~~~~~~~~~~~~ ~~~~~~~~~ ATTENDING ADDENDUM Problem List[1] I have personally performed a face to face diagnostic evaluation on this patient. I have reviewed and agree with the care plan as documented above by my SHUTTLE DRIVER/KILEY. I personally discussed the review of systems and interviewed the patient along with performing a physical examination. In addition, I discussed the patient's condition and treatment options with him/her when possible. All of the patient's questions were answered and family updated when appropriate and possible. I I performed a physical exam and ROS on the same date of service as above. My findings agree with the above note except for any details corrected below. A complete review of systems was obtained and is negative except as stated in HPI. HPI: 85 y.o. female status post fall from standing height the incident happened around afternoon on 04/22. The patient was walking through her living room after folding some laundry and fell to the ground striking her right knee and left chest. She is unable to identify the cause of her fall however she does report that she was feeling somewhat dizzy and had a headache throughout the day preceding the fall. She denies any loss of consciousness. Her pain is currently 8/10. She is on Xarelto for A-fib. Patient initially presented to [facility] and was found to have a subdural hematoma 6 mm. She was given PCC prior to transfer for direct admission to T2 ICU. Imaging reviewed and independently interpreted: CT chest reviewed -multiple acute/chronic rib fractures --> suspect acute 3 through 7 rib fractures anterior on the L CTH - left frontal and interhemispheric subdural hematoma measuring 6 mm without mass effect CT urogram - Mildly enlarged, calcified left iliac nodes, nonspecific but may be due to prior granulomatous disease. - Moderate stool throughout the colon. Consider constipation. Problem list: Acute, acute on chronic, unstable or uncontrolled chronic problems/diagnoses: Acute traumatic left frontal and anterior hemispheric subdural hematoma 6mm, no mass effect Acute traumatic left 3 through 7 rib fractures Left shoulder osteoarthritis and a right knee hematoma Acute traumatic pain ?Pre-syncopal fall Constipation Incidental - Chronic compression fractures of T8, L1 and L2 Stable chronic problems, affecting patient care: Past Medical History Diagnosis Date Arthritis Atrial fibrillation (HCC) Chronic obstructive pulmonary disease (HCC) 08/24/2017 Chronic pain Congestive heart failure (CHF) ([facility]) GERD (gastroesophageal reflux disease) Hypertension Osteoarthritis Pain management Psoriasis 24h: Complains of L rib pain - APS consult for rib block - gabapentin for pain control 100 mg BID - complains of L chest pain 2/2 rib fractures - improved pain in Ribs - wean O2 as able Complains of L shoulder pain - discuss with Ortho SBP 113-157 Factor Xa 0.4 ppx Orthostatics neg Hgb stable at 13.7 DC labs Urology started ancef --> change to rocephin Plan: Neurological system #Acute traumatic left frontal and anterior hemispheric subdural hematoma 6mm, no mass effect - Patient received PCC at the OSH for Xarelto - No seizure prophylaxis at this time - Repeat CT in the morning - Elevate head of bed 30 degrees -No neurosurgical intervention indicated -Continue to hold OAC until OP follow up -May start DVT ppx in 48 hrs -No need for AED -CT head in 1-2 weeks OP # Chronic pain - Home amitriptyline --> no longer taking - Home baclofen nightly - home butrans #Acute pain - Multimodal pain control # At risk for delirium/acute encephalopathy - Delirium precautions: increase activity, limit nighttime disturbances, and avoid anticholinergic meds, benzos, etc Circulatory system # Atrial fibrillation, hypertension, HFpEF - 02/11/21 echo EF 68% - Hold Xarelto - atenolol 25 mg - Home Jardiance 10 mg - Echo EF 60% - SBP 110-160 - PRN anti-htn med - HOLD home Lasix 20 mg as needed edema Respiratory system # COPD # Acute traumatic left 3 through 7 rib fractures - Home Symbicort -> substitute Dulera - O2 protocol - Aggressive pulmonary hygiene Gastrointestinal system # GERD -Home Pepcid #Constipation - Bowel regimen Renal function - Strict I/Os #Gross hematuria - Labs and imaging reviewed - trend daily labs - Cr @baseline - UA +for infxn - check urine culture (p) - No acute urologic surgical intervention at this time - IV Abx - start ancef - adjust per culture results - obtain PVR - Optimize pain/nausea control - Monitor fevers/hypotension Immunologic system [x] Mupirocin for empiric MRSA decolonization x5 days - Monitor for fevers Hematologic system (more content not included)... Normal [facility] XR CHEST 1 VIEWon 04-26-2025 XR CHEST 1 VIEW Patient Name: LESLI HERNANDEZ MS : 1940 Exam Date/Time: 04/26/2025 07:18 Procedure: XR CHEST 1 VIEW Ordering Provider: GARSIA LESLEY Reason For Exam: left rib fx EXAM TYPE: RADIOLOGIC EXAMINATION, CHEST, SINGLE VIEW FRONTAL (CXR SINGLE VIEW) EXAM DATE AND TIME: 04/26/2025 7:18 AM EDT INDICATION: Rib fracture COMPARISON: 04/25/2025 TECHNIQUE: A single portable frontal view of the thorax was obtained and reviewed. Special views: None. IMPRESSION: 1. Lines/Tubes/Devices/Hardwa re: Right shoulder arthroplasty, vertebral cement, support tubes. Please confirm position and function of any catheters or attempted catheters clinically. 2. Lungs: Persistent infiltrates, slightly worsened. No convincing interval major volume loss. CHF versus pneumonia. Limited due to rotation, lordotic positioning . .. Consider follow-up with PA and lateral chest for persistent symptoms. 3. Pleura: Small effusions. No significant pneumothorax. 4. Heart and mediastinum: No acute process. 5. Upper abdomen: No acute process seen. 6. Thorax:No acute bony process Report Dictated on Electronically Signed By: Wilder Cameron MD Electronically Signed Date/Time: 04/26/2025 10:58 AM EDT Normal [facility] XR Chest Single viewon 04-26 1. Lines/Tubes/Devices/Hardwa re: Right shoulder arthroplasty, vertebral cement, support tubes. Please confirm position and function of any catheters or attempted catheters clinically. 2. Lungs: Persistent infiltrates, slightly worsened. No convincing interval major volume loss. CHF versus pneumonia. Limited due to rotation, lordotic positioning . .. Consider follow-up with PA and lateral chest for persistent symptoms. 3. Pleura: Small effusions. No significant pneumothorax. 4. Heart and mediastinum: No acute process. 5. Upper abdomen: No acute process seen. 6. Thorax:No acute bony process Report Dictated on Electronically Signed By: Wilder Cameron MD Electronically Signed Date/Time: 04/26/2025 10:58 AM EDT [facility] Patient Name: LESLI HERNANDEZ MS : 1940 Exam Date/Time: 04/26/2025 07:18 Procedure: XR CHEST 1 VIEW Ordering Provider: GARSIA LESLEY Reason For Exam: left rib fx EXAM TYPE: RADIOLOGIC EXAMINATION, CHEST, SINGLE VIEW FRONTAL (CXR SINGLE VIEW) EXAM DATE AND TIME: 04/26/2025 7:18 AM EDT INDICATION: Rib fracture COMPARISON: 04/25/2025 TECHNIQUE: A single portable frontal view of the thorax was obtained and reviewed. Special views: None. [facility] Wilder Camerno MD - 04/26/2025 Patient Name: LESLI ROSALES : 1940 Exam Date/Time: 04/26/2025 07:18 Procedure: XR CHEST 1 VIEW Ordering Provider: GARSIA LESLEY Reason For Exam: left rib fx EXAM TYPE: RADIOLOGIC EXAMINATION, CHEST, SINGLE VIEW FRONTAL (CXR SINGLE VIEW) EXAM DATE AND TIME: 04/26/2025 7:18 AM EDT INDICATION: Rib fracture COMPARISON: 04/25/2025 TECHNIQUE: A single portable frontal view of the thorax was obtained and reviewed. Special views: None. IMPRESSION: 1. Lines/Tubes/Devices/Hardwa re: Right shoulder arthroplasty, vertebral cement, support tubes. Please confirm position and function of any catheters or attempted catheters clinically. 2. Lungs: Persistent infiltrates, slightly worsened. No convincing interval major volume loss. CHF versus pneumonia. Limited due to rotation, lordotic positioning . .. Consider follow-up with PA and lateral chest for persistent symptoms. 3. Pleura: Small effusions. No significant pneumothorax. 4. Heart and mediastinum: No acute process. 5. Upper abdomen: No acute process seen. 6. Thorax:No acute bony process Report Dictated on Electronically Signed By: Wilder Cameron MD Electronically Signed Date/Time: 04/26/2025 10:58 AM EDT [facility] Radiology Study observation (narrative) [facility] XR Chest Single viewOrdered By: Wilder Cameron on 04-26-2025 [facility] [employer] Work Phone: XR SHOULDER 1 VIEW LEFTon XR SHOULDER 1 VIEW LEFT Patient Name: LESLI ROSALES : 1940 Exam Date/Time: 04/26/2025 15:03 Procedure: XR SHOULDER 1 VIEW LEFT Ordering Provider: GONZALEZ KATIE Reason For Exam: confirm shoudler is reduced LEFT SHOULDER SINGLE VIEW CLINICAL INDICATION: confirm shoulder is reduced TECHNIQUE: Single, axillary view of the left shoulder. COMPARISON: Earlier on same date at 1213 hours. FINDINGS: No apparent fracture or dislocation. Soft tissues grossly unremarkable. IMPRESSION: 1. Single view left shoulder grossly unremarkable. Report Dictated on Electronically Signed By: Mahad Newman MD Electronically Signed Date/Time: 04/26/2025 5:49 PM EDT Normal [facility] XR SHOULDER 2+ VIEWS LEFTon 04-26-2025 XR SHOULDER 2+ VIEWS LEFT Patient Name: LESLI ROSALES : 1940 Exam Date/Time: 04/26/2025 12:13 Procedure: XR SHOULDER 2+ VIEWS LEFT Ordering Provider: TUTTLE LISA Reason For Exam: Left shoulder pain s/p fall EXAMINATION: XR SHOULDER 2+ VIEWS LEFT CLINICAL HISTORY: Left shoulder pain s/p fall COMPARISON: June 12, 2018 TECHNIQUE: AP and transscapular Y FINDINGS: There is no acute fracture or dislocation. No osseous lesions are seen. The glenohumeral and acromioclavicular joints are intact. The regional soft tissue structures are unremarkable. IMPRESSION: 1. No acute osseous findings in the left shoulder. Report Dictated on Electronically Signed By: Nieves Rojas MD Electronically Signed Date/Time: 04/26/2025 2:38 PM EDT [facility] XR Shoulder - left 2 Viewson 04-26-2025 1. No acute osseous findings in the left shoulder. Report Dictated on Electronically Signed By: Nieves Rojas MD Electronically Signed Date/Time: 04/26/2025 2:38 PM EDT [facility] Patient Name: LESLI HERNANDEZ MS : 1940 Exam Date/Time: 04/26/2025 12:13 Procedure: XR SHOULDER 2+ VIEWS LEFT Ordering Provider: TUTTLE LISA Reason For Exam: Left shoulder pain s/p fall EXAMINATION: XR SHOULDER 2+ VIEWS LEFT CLINICAL HISTORY: Left shoulder pain s/p fall COMPARISON: June 12, 2018 TECHNIQUE: AP and transscapular Y FINDINGS: There is no acute fracture or dislocation. No osseous lesions are seen. The glenohumeral and acromioclavicular joints are intact. The regional soft tissue structures are unremarkable. [facility] Nieves Rojas MD - 04/26/2025 Patient Name: LESLI ROSALES : 1940 Exam Date/Time: 04/26/2025 12:13 Procedure: XR SHOULDER 2+ VIEWS LEFT Ordering Provider: TUTTLE LISA Reason For Exam: Left shoulder pain s/p fall EXAMINATION: XR SHOULDER 2+ VIEWS LEFT CLINICAL HISTORY: Left shoulder pain s/p fall COMPARISON: June 12, 2018 TECHNIQUE: AP and transscapular Y FINDINGS: There is no acute fracture or dislocation. No osseous lesions are seen. The glenohumeral and acromioclavicular joints are intact. The regional soft tissue structures are unremarkable. IMPRESSION: 1. No acute osseous findings in the left shoulder. Report Dictated on Electronically Signed By: Nieves Rojas MD Electronically Signed Date/Time: 04/26/2025 2:38 PM EDT [facility] Radiology Study observation (narrative) [facility] - left 2 ViewsOr dered By: Nieves Rojas on 04-26-2025 [employer] Work Phone: XR Shoulder - left Single vi ewon 04-26-2025 1. Single view left shoulder grossly unremarkable. Report Dictated on Electronically Signed By: Mahad Newman MD Electronically Signed Date/Time: 04/26/2025 5:49 PM EDT [facility] Patient Name: LESLI HERNANDEZ MS : 1940 Exam Date/Time: 04/26/2025 15:03 Procedure: XR SHOULDER 1 VIEW LEFT Ordering Provider: GONZALEZ KATIE Reason For Exam: confirm shoudler is reduced LEFT SHOULDER SINGLE VIEW CLINICAL INDICATION: confirm shoulder is reduced TECHNIQUE: Single, axillary view of the left shoulder. COMPARISON: Earlier on same date at 1213 hours. FINDINGS: No apparent fracture or dislocation. Soft tissues grossly unremarkable. [facility] Mahad Newman MD - 04/26/2025 Patient Name: LESLI ROSALES : 1940 Exam Date/Time: 04/26/2025 15:03 Procedure: XR SHOULDER 1 VIEW LEFT Ordering Provider: GONZALEZ KATIE Reason For Exam: confirm shoudler is reduced LEFT SHOULDER SINGLE VIEW CLINICAL INDICATION: confirm shoulder is reduced TECHNIQUE: Single, axillary view of the left shoulder. COMPARISON: Earlier on same date at 1213 hours. FINDINGS: No apparent fracture or dislocation. Soft tissues grossly unremarkable. IMPRESSION: 1. Single view left shoulder grossly unremarkable. Report Dictated on Electronically Signed By: Mahad Newman MD Electronically Signed Date/Time: 04/26/2025 5:49 PM EDT [facility] Radiology Study observation (narrative) [employer] XR Shoulder - left Single vi ewOrdered By: Mahad Newman on 04-26-2025 [facility] [employer] Work Phone: 36on 04-25-2025 36 Seen inpatient for hematuria. Had CTU. Needs outpatient cysto. Thanks! Normal [facility] CBC W Auto Differential pane l (Bld)Ordered By: Kiara Smalls on 04-25-2025 Basophils (Bld) [#/Vol] 0 10*3/uL 0.0 - 0.2 10*3/uL [facility] [employer] Basophils/100 WBC (Bld) 0.4 % 0.0 - 2.0 % [facility] [employer] Eosinophils (Bld) [#/Vol] 0.2 10*3/uL 0.0 - 0.5 10*3/uL [facility] [employer] Eosinophils/100 WBC (Bld) 1.6 % 0.0 - 6.0 % [facility] [employer] Erythrocyte distribution width (RBC) [Ratio] 14.4 % 11.5 - 15.0 % [employer] [facility] Hematocrit (Bld) [Volume fraction] 44.3 % 35.0 - 47.0 % [facility] [employer] Hemoglobin (Bld) [Mass/Vol] 13.7 g/dL 11.7 - 16.0 g/dL [facility] [employer] Immature granulocytes (Bld) [#/Vol] 0.1 10*3/uL High NINF - 0.1 10*3/uL [facility] [employer] Immature granulocytes/100 WBC (Bld) 0.6 % 0.0 - 2.0 % [facility] [employer] Interpretation and review of laboratory results Abnormal [facility] [employer] Lymphocytes (Bld) [#/Vol] 2.2 10*3/uL 1.0 - 4.3 10*3/uL [facility] [employer] Lymphocytes/100 WBC (Bld) 19.7 % 15.0 - 45.0 % [facility] [employer] MCH (RBC) [Entitic mass] 33.2 pg 26.0 - 34.0 pg [facility] [employer] MCHC (RBC) [Mass/Vol] 30.9 % 30.5 - 36.0 % [facility] [employer] MCV (RBC) [Entitic vol] 107.3 fL High 77.0 - 99.0 fL [facility] Monocytes (Bld) [#/Vol] 1.2 10*3/uL High 0.0 - 0.9 10*3/uL [facility] Monocytes/100 WBC (Bld) 11 % 5.0 - 13.0 % [facility] Neutrophils (Bld) [#/Vol] 7.6 10*3/uL High 1.8 - 7.5 10*3/uL [facility] Neutrophils/100 WBC (Bld) 66.7 % 38.0 - 82.0 % [facility] Nucleated RBC/100 WBC (Bld) [Ratio] 0 % [facility] Platelet mean volume (Bld) [Entitic vol] 11.5 fL 9.0 - 12.7 fL [facility] Platelets (Bld) [#/Vol] 173 10*3/uL 140 - 440 10*3/uL [facility] RBC (Bld) [#/Vol] 4.13 10*6/uL 3.80 - 5.20 10*6/uL [facility] WBC (Bld) [#/Vol] 11.3 10*3/uL High 3.6 - 10.7 10*3/uL [facility] CBC WITH AUTO DIFFERENTIALon 04-25-2025 Basophils (Bld) [#/Vol] 0.0 10*3/uL Normal 0.0-0.2 [facility] Comment on above: Performed By: #### L [id number] ####[facility] Hospital: ANGELICA [id number])[address] Basophils/100 WBC (Bld) 0.4 % Normal 0.0-2.0 [facility] Comment on above: Performed By: #### L [id number] ####[facility]: ANGELICA [id number])[address] Eosinophils (Bld) [#/Vol] 0.2 10*3/uL Normal 0.0-0.5 [facility] Comment on above: Performed By: #### L [id number] ####[facility]: ANGELICA [id number])[facility] [place] [address] Eosinophils/100 WBC (Bld) 1.6 % Normal 0.0-6.0 [facility] Comment on above: Performed By: #### L [id number] ####[facility]: ANGELICA LUZ ([id number])[facility])[address] [place] [address] Erythrocyte distribution width (RBC) [Ratio] 14.4 % Normal 11.5-15.0 [facility] Comment on above: Performed By: #### L [id number] ####[facility]: ANGELICA LUZ ([id number])[facility])[address] [place] [address] Hematocrit (Bld) [Volume fraction] 44.3 % Normal 35.0-47.0 [facility] Comment on above: Performed By: #### L [id number] ####[facility]: ANGELICA LUZ ([id number])[facility])[address] [place] [address] Hemoglobin (Bld) [Mass/Vol] 13.7 g/dL Normal 11.7-16.0 [facility] Comment on above: Performed By: #### L [id number] ####[facility]: ANGELICA LUZ ([id number])[facility])[address] [place] [address] IMMATURE GRANS % 0.6 % Normal 0.0-2.0 [facility] Comment on above: Performed By: #### L [id number] ####[facility]: ANGELICA LUZ ([id number])[facility] CAMPUS)[address] [place] [address] IMMATURE GRANS ABSOLUTE 0.1 10*3/uL High <0.1 [facility] Comment on above: Performed By: #### L [id number] ####[facility]: ANGELICA LUZ ([phone])[facility])[address] [place] [address] Lymphocytes (Bld) [#/Vol] 2.2 10*3/uL Normal 1.0-4.3 [facility] Comment on above: Performed By: #### L [id number] ####[facility]: ANGELICA LUZ ([id number])[facility])[address] [place] [address] Lymphocytes/100 WBC (Bld) 19.7 % Normal 15.0-45.0 [facility] Comment on above: Performed By: #### L [id number] ####[facility]: ANGELICA LUZ ([id number])[facility])[address] [place] [address] MCH (RBC) [Entitic mass] 33.2 pg Normal 26.0-34.0 [facility] Comment on above: Performed By: #### L [id number] ####[facility]: ANGELICA LUZ ([id number])[facility])[address] [place] [address] MCHC 30.9 % Normal 30.5-36.0 [facility] Comment on above: Performed By: #### L [id number] ####[facility]: ANGELICA LUZ ([id number])[facility])[address] [place] [address] MCV (RBC) [Entitic vol] 107.3 fL High 77.0-99.0 [facility] Comment on above: Performed By: #### L [id number] ####[facility]: ANGELICA LUZ ([id number])[facility])[address] [place] [address] Monocytes (Bld) [#/Vol] 1.2 10*3/uL High 0.0-0.9 [facility] Comment on above: Performed By: #### L [id number] ####[facility]: ANGELICA LUZ ([id number])[facility])[address] [place] [address] Monocytes/100 WBC (Bld) 11.0 % Normal 5.0-13.0 [facility] Comment on above: Performed By: #### L [id number] ####[facility]: ANGELICA LUZ ([id number])[facility] ([facility])[address] [place] [address] NEUTROPHILS ABSOLUTE 7.6 10*3/uL High 1.8-7.5 [facility] Comment on above: Performed By: #### L [id number] ####[facility]: ANGELICA LUZ ([id number])[facility] ([facility])[address] [place] [address] Neutrophils/100 WBC (Bld) 66.7 % Normal 38.0-82.0 [facility] Comment on above: Performed By: #### L [id number] ####[facility]: ANGELICA LUZ ([id number])[facility])[address] [place] [address] NRBC 0.0 /100 WBCs Normal 0.0-2.0 [facility] Comment on above: Performed By: #### L [id number] ####[facility]: ANGELICA LUZ ([id number])[facility] ([facility])[address] [place] [address] Platelet mean volume (Bld) [Entitic vol] 11.5 fL Normal 9.0-12.7 [facility] Comment on above: Performed By: #### L [id number] ####[facility]: ANGELICA LUZ ([id number])[facility] ([facility])[address] [place] [address] Platelets (Bld) [#/Vol] 173 10*3/uL Normal 140-440 [facility] Comment on above: Performed By: #### L [id number] ####[facility]: ANGELICA LUZ ([id number])[facility] ([facility])[address] [place] [address] RBC (Bld) [#/Vol] 4.13 10*6/uL Normal 3.80-5.20 [facility] Comment on above: Performed By: #### L [id number] ####[facility]: ANGELICA LUZ ([id number])[facility] ([facility])[address] [place] [address] WBC (Bld) [#/Vol] 11.3 10*3/uL High 3.6-10.7 [facility] Comment on above: Performed By: #### L [id number] ####[facility]: ANGELICA LUZ ([id number])[facility] [place] [address] CT Kidney and Ureter and Uri nary bladder WO and W contrast Elliott 04-25-2025 1. No radiopaque uri nary calculi, hydroureteronephrosis or renal or bladder mass. 2. Moderate stool throughout the colon. Consider constipation. 3. Mildly enlarged, calcified left iliac nodes, nonspecific but may be due to prior granulomatous disease. 4. Multiple abnormalities in the spine including age-indeterminate compression deformities of L1-L3. Vertebroplasty changes in L2. Correlate with patient history and point tenderness. 5. Limited study as above. Report Dictated on Electronically Signed By: Juanpablo Duarte MD Electronically Signed Date/Time: 04/25/2025 11:58 AM [facility] Patient Name: LESLI HERNANDEZ MS : 1940 [facility]#: [id number] Exam Date/Time: 04/25/2025 10:20 Procedure: CT UROGRAM W WO IV CONTRAST Ordering Provider: GONZALEZ KATIE Reason For Exam: gross hematuria EXAM: CT Abdomen and Pelvis Without and With Intravenous Contrast CLINICAL INDICATION: gross hematuria TECHNIQUE: Axial computed tomography images of the abdomen and pelvis without and with intravenous contrast. This CT exam was performed using one or more of the following dose reduction techniques: automated exposure control, adjustment of the mA and/or kV according to patient size, and/or use of iterative reconstruction technique. COMPARISON: No relevant prior studies available. FINDINGS: LIMITATIONS: Limited due to artifact from the patient's arms which are in the [id number]. LUNG BASES: See below. PLEURAL SPACE: Moderate bilateral pleural effusions and bibasilar atelectasis. HEART: Coronary artery calcifications are present. ABDOMEN: LIVER: Unremarkable. No mass. GALLBLADDER AND BILE DUCTS: Mild extrahepatic biliary dilation due to prior cholecystectomy. PANCREAS: Unremarkable. No mass. No ductal dilation. SPLEEN: Unremarkable. No splenomegaly. ADRENALS: Unremarkable. No mass. KIDNEYS AND URETERS: No radiopaque urinary calculi. No hydroureteronephrosis. The opacified portions of both ureters are unremarkable. Limited evaluation of the distal ureters due to lack of opacification, which may be due to peristalsis.. The kidneys are symmetric in size with symmetric enhancement. No enhancing renal mass. STOMACH AND BOWEL: Moderate stool throughout the colon. No obstruction. No mucosal thickening. PELVIS: APPENDIX: No findings to suggest acute appendicitis. BLADDER: Unremarkable. No stones. No filling defect is seen in the urinary bladder. No bladder wall thickening. REPRODUCTIVE: Status post hysterectomy. ABDOMEN and PELVIS: INTRAPERITONEAL SPACE: Unremarkable. No free air. No significant fluid collection. BONES/JOINTS: Degenerative changes in the spine. There is 17 mm of anterolisthesis at L5-S1. There are age indeterminate compression deformities of L1-L3 but with vertebroplasty changes noted in the L2 compression fracture. SOFT TISSUES: Postsurgical changes in the anterior abdominal wall. VASCULATURE: Atherosclerotic disease. LYMPH NODES: Calcified left iliac chain nodes measuring up to 12 mm. [facility] Juanpablo Duarte MD - 04/25/2025 [facility] 1940 [id number] Exam Date/Time: 04/25/2025 10:20 Procedure: CT UROGRAM W WO IV CONTRAST Ordering Provider: GONZALEZ KATIE Reason For Exam: gross hematuria EXAM: CT Abdomen and Pelvis Without and With Intravenous Contrast CLINICAL INDICATION: gross hematuria TECHNIQUE: Axial computed tomography images of the abdomen and pelvis without and with intravenous contrast. This CT exam was performed using one or more of the following dose reduction techniques: automated exposure control, adjustment of the mA and/or kV according to patient size, and/or use of iterative reconstruction technique. COMPARISON: No relevant prior studies available. FINDINGS: LIMITATIONS: Limited due to artifact from the patient's arms which are in the [id number]. LUNG BASES: See below. PLEURAL SPACE: Moderate bilateral pleural effusions and bibasilar atelectasis. HEART: Coronary artery calcifications are present. ABDOMEN: LIVER: Unremarkable. No mass. GALLBLADDER AND BILE DUCTS: Mild extrahepatic biliary dilation due to prior cholecystectomy. PANCREAS: Unremarkable. No mass. No ductal dilation. SPLEEN: Unremarkable. No splenomegaly. ADRENALS: Unremarkable. No mass. KIDNEYS AND URETERS: No radiopaque urinary calculi. No hydroureteronephrosis. The opacified portions of both ureters are unremarkable. Limited evaluation of the distal ureters due to lack of opacification, which may be due to peristalsis.. The kidneys are symmetric in size with symmetric enhancement. No enhancing renal mass. STOMACH AND BOWEL: Moderate stool throughout the colon. No obstruction. No mucosal thickening. PELVIS: APPENDIX: No findings to suggest acute appendicitis. BLADDER: Unremarkable. No stones. No filling defect is seen in the urinary bladder. No bladder wall thickening. REPRODUCTIVE: Status post hysterectomy. ABDOMEN and PELVIS: INTRAPERITONEAL SPACE: Unremarkable. No free air. No significant fluid collection. BONES/JOINTS: Degenerative changes in the spine. There is 17 mm of anterolisthesis at L5-S1. There are age indeterminate compression deformities of L1-L3 but with vertebroplasty changes noted in the L2 compression fracture. SOFT TISSUES: Postsurgical changes in the anterior abdominal wall. VASCULATURE: Atherosclerotic disease. LYMPH NODES: Calcified left iliac chain nodes measuring up to 12 mm. IMPRESSION: 1. No radiopaque urinary calculi, hydroureteronephrosis or renal or bladder mass. 2. Moderate stool throughout the colon. Consider constipation. 3. Mildly enlarged, calcified left iliac nodes, nonspecific but may be due to prior granulomatous disease. 4. Multiple abnormalities in the spine including age-indeterminate compression deformities of L1-L3. Vertebroplasty changes in L2. Correlate with patient history and point tenderness. 5. Limited study as above. Report Dictated on Electronically Signed By: Juanpablo Duarte MD Electronically Signed Date/Time: 04/25/2025 11:58 AM EDT Dsg.nr Radiology Study observation (narrative) [employer] CT UROGRAM W WO IV CONTRASTo n 04-25-2025 CT UROGRAM W WO IV CONTRAST Patient Name: LESLI ROSALES : 1940 Exam Date/Time: 04/25/2025 10:20 Procedure: CT UROGRAM W WO IV CONTRAST Ordering Provider: GONZALEZ KATIE Reason For Exam: gross hematuria EXAM: CT Abdomen and Pelvis Without and With Intravenous Contrast CLINICAL INDICATION: gross hematuria TECHNIQUE: Axial computed tomography images of the abdomen and pelvis without and with intravenous contrast. This CT exam was performed using one or more of the following dose reduction techniques: automated exposure control, adjustment of the mA and/or kV according to patient size, and/or use of iterative reconstruction technique. COMPARISON: No relevant prior studies available. FINDINGS: LIMITATIONS: Limited due to artifact from the patient's arms which are in the [id number]. LUNG BASES: See below. PLEURAL SPACE: Moderate bilateral pleural effusions and bibasilar atelectasis. HEART: Coronary artery calcifications are present. ABDOMEN: LIVER: Unremarkable. No mass. GALLBLADDER AND BILE DUCTS: Mild extrahepatic biliary dilation due to prior cholecystectomy. PANCREAS: Unremarkable. No mass. No ductal dilation. SPLEEN: Unremarkable. No splenomegaly. ADRENALS: Unremarkable. No mass. KIDNEYS AND URETERS: No radiopaque urinary calculi. No hydroureteronephrosis. The opacified portions of both ureters are unremarkable. Limited evaluation of the distal ureters due to lack of opacification, which may be due to peristalsis.. The kidneys are symmetric in size with symmetric enhancement. No enhancing renal mass. STOMACH AND BOWEL: Moderate stool throughout the colon. No obstruction. No mucosal thickening. PELVIS: APPENDIX: No findings to suggest acute appendicitis. BLADDER: Unremarkable. No stones. No filling defect is seen in the urinary bladder. No bladder wall thickening. REPRODUCTIVE: Status post hysterectomy. ABDOMEN and PELVIS: INTRAPERITONEAL SPACE: Unremarkable. No free air. No significant fluid collection. BONES/JOINTS: Degenerative changes in the spine. There is 17 mm of anterolisthesis at L5-S1. There are age indeterminate compression deformities of L1-L3 but with vertebroplasty changes noted in the L2 compression fracture. SOFT TISSUES: Postsurgical changes in the anterior abdominal wall. VASCULATURE: Atherosclerotic disease. LYMPH NODES: Calcified left iliac chain nodes measuring up to 12 mm. IMPRESSION: 1. No radiopaque urinary calculi, hydroureteronephrosis or renal or bladder mass. 2. Moderate stool throughout the colon. Consider constipation. 3. Mildly enlarged, calcified left iliac nodes, nonspecific but may be due to prior granulomatous disease. 4. Multiple abnormalities in the spine including age-indeterminate compression deformities of L1-L3. Vertebroplasty changes in L2. Correlate with patient history and point tenderness. 5. Limited study as above. Report Dictated on Electronically Signed By: Juanpablo Duarte MD Electronically Signed Date/Time: 04/25/2025 11:58 AM EDT Normal [facility] Consulton 04-25-2025 Consult PAGING: The Acute Pa in Service providers are available exclusively via [employer]. APS does not utilize pagers. 04/25/2025 BLOCK COMMUNICATION NOTE Patient/MRN Lesli Rosales [id number] Room 325A Block requested Rib Block: Acute Traumatic Left 3 thru 7 Rib Fractures Platelets Lab Results Component Value Date PLT 157 04/24/2025 PLT 166 04/23/2025 Anticoagulants? Inpatient: none: Last dose: na Outpatient: Xarelto: Last dose: 04/22 @ 0800 Pt agreeable to block today Pt will be formally assessed by block team and decision to perform block per IDENTIFICATION CLERK/block team No lidocaine patches x 96h from [employer] administration Appointment time: 0900 Transport scheduled # Block team aware (Minerva Monroy Nash) Yinka Queen CLIENT SERVICES ACCOUNT MANAGER aware A Wayne RN aware of pending procedure, blank consent form on chart NG: The Acute Pain Service providers are available exclusively via [employer]. APS does not utilize pagers. Normal [facility] Laboratory - Chemistry and C hemistry - challengeon 04-25-2025 Glucose [Mass/Vol] 171 mg/dL High 70 - 100 mg/dL [facility] Glucose [Mass/Vol] 127 mg/dL High 70 - 100 mg/dL [facility] Glucose [Mass/Vol] 86 mg/dL 70 - 100 mg/dL [facility] Glucose [Mass/Vol] 92 mg/dL 70 - 100 mg/dL [facility] No Panel Informationon 04-25 Interpretation and review of laboratory results Abnormal [facility] Performed by: [place] [id number] CLIA ID: [id number] [facility] Interpretation and review of laboratory results Abnormal [facility] Performed by: [address] [address] CLIA ID: [id number] [facility] Interpretation and review of laboratory results Normal [facility] Performed by: [facility], [address] [place] [address], [facility] [address] CLIA ID: [id number] [facility] Interpretation and review of laboratory results Normal [facility] Performed by: [facility], [address] [place] [address], [facility] [address] CLIA ID: [id number] [facility] Progress Noteon 04-25-2025 Progress Note PHYSICAL THERAPY [facility] Treatment Note Name/MRN: Lesli Rosales ([id number]) Date of : 1940 Age: 85 y.o. Room/Bed: W3-325/W3-325 A Discharge Recommendation: IP Rehab Equipment Needed: No Assessment Pt tolerated treatment session fair. Pt limited by rib and L shoulder pain on this date. Pt performed bed mobility with Mod assist. Pt declined out of bed mobility on this date but was agreeable to sitting EOB and BLE exercises. Pt with high PLOF. Recommend discharge to IP Rehab to improve strength, balance, activity tolerance, and mobility prior to return home. Subjective Pt supine in bed upon arrival and is agreeable to PT treatment session with education and encouragement. RN administered pain medication prior to mobility. RN okayed session. Pain: 0-10 pain scale: 8/10 Location: L shoulder/ribs Medical Precautions: No active isolations Proper PPE donned/doffed in accordance with facility standards. Fall Risk: Curry Fall Risk Score: 85 (Low Risk) Curry Fall Risk Score: 85 (High Risk) Precautions/Restrictions: Lines/Drains/Airways: O2, external catheter, SPO2 Per order in EMR, pt is NWB LUE. Sling donned on LUE upon arrival and remained donned during session. L wrist brace donned as well. WBAT RLE per note. Overall Cognitive Status: Exceptions - Following commands: follows one step commands consistently - Initiation: requires cues for some - Sequencing: requires cues for some Overall Orientation Status: Oriented x4 Family/Caregiver Present: none Objective Bed Mobility Supine to sit: Mod Assist Sit to supine: Mod Assist Max assist for supine scooting towards HOB. Cues for sequencing when performing supine to sit. Pt sat EOB for ~2 minutes. Pt requesting to return to supine due to increased pain with mobility. Pt declined trial of transfers on this date. Balance During Session: Posture: fair Sitting - Static: Contact Guard Sitting - Dynamic: Contact Guard Mild GOODWIN noted with mobility. SPO2 84-96% during session. Cues for pursed lip breathing. Exercises Pt performed AAROM/AROM BLE exercises in supine to increase strength and activity tolerance needed to improve performance with all mobility. Verbal and tactile cues for proper form. Quad sets: 1x15 reps Ankle pumps: 1x15 reps SAQs: 1x15 reps Hip abduction/adduction: 1x15 reps Heel slides: 1x15 reps SLRs LLE: 1x10 reps Plan Continue acute PT per plan of care. Safety/Education Safety Safety Devices in place: call light within reach, left in bed, and no alarms engaged upon entry Educated pt on use of call light and to have staff assistance for mobility. Pt verbalized understanding. Restraints: No Education Education Given To: patient Education Provided: PT Role, Precautions, Benefits of Increasing Activity, and Breathing Techniques, bed mobility Education Method: Verbal Barriers to Learning: None Education Outcome: Verbalized Understanding and Continued Education Needed Outcome Measures AM-PAC AM-PAC Inpatient Mobility Raw Score (No Stairs) : 10 JH-HLM JH-HLM Score: Sat at edge of bed Goals Patient Stated Goal: to decrease pain Encounter Problems Encounter Problems (Active) Balance Patient will maintain dynamic standing balance for 3 minutes with CGA in order to demonstrate decreased risk of falling. (Not Addressed) Start: 04/23/25 Expected End: 05/14/25 Mobility Patient will ambulate 30 feet with CGA and rolling walker in order to improve safety and independence with mobility. (Not Addressed) Start: 04/23/25 Expected End: 05/14/25 Transfers Patient will perform bed mobility with CGA in order to improve independence and prepare for out of bed mobility. (Progressing) Start: 04/23/25 Expected End: 05/14/25 Patient will complete sit to stand transfer with CGA to wheeled walker in order to improve safety and prepare for out of bed mobility. (Not Addressed) Start: 04/23/25 Expected End: 05/14/25 Therapy Time Individual Co-treatment Time In 1134 Time Out 1201 Minutes 27 Timed Code Treatment Minutes: 27 Minutes (1 unit TP, 1 unit TA) Marlo Palmer, PT [facility] Progress Note ------ -- Attestation signed by Domonique Gonzalez MD at 04/25/2025 2:10 PM ~~~~~~~~~~~~~~~~~~~~~~~~~~ ~~~~~~~~~~~~~~~~~~~~~~~~~~ ~~~~~~~~~ ATTENDING ADDENDUM Problem List[1] I have personally performed a face to face diagnostic evaluation on this patient. I have reviewed and agree with the care plan as documented above by my SHUTTLE DRIVER/KILEY. I personally discussed the review of systems and interviewed the patient along with performing a physical examination. In addition, I discussed the patient's condition and treatment options with him/her when possible. All of the patient's questions were answered and family updated when appropriate and possible. I I performed a physical exam and ROS on the same date of service as above. My findings agree with the above note except for any details corrected below. A complete review of systems was obtained and is negative except as stated in HPI. HPI: 85 y.o. female status post fall from standing height the incident happened around afternoon on 04/22. The patient was walking through her living room after folding some laundry and fell to the ground striking her right knee and left chest. She is unable to identify the cause of her fall however she does report that she was feeling somewhat dizzy and had a headache throughout the day preceding the fall. She denies any loss of consciousness. Her pain is currently 8/10. She is on Xarelto for A-fib. Patient initially presented to [facility] and was found to have a subdural hematoma 6 mm. She was given PCC prior to transfer for direct admission to ICU. Imaging reviewed and independently interpreted: CT chest reviewed -multiple acute/chronic rib fractures --> suspect acute 3 through 7 rib fractures anterior on the L CTH - left frontal and interhemispheric subdural hematoma measuring 6 mm without mass effect CT urogram - Mildly enlarged, calcified left iliac nodes, nonspecific but may be due to prior granulomatous disease. - Moderate stool throughout the colon. Consider constipation. Problem list: Acute, acute on chronic, unstable or uncontrolled chronic problems/diagnoses: Acute traumatic left frontal and anterior hemispheric subdural hematoma 6mm, no mass effect Acute traumatic left 3 through 7 rib fractures Left shoulder osteoarthritis and a right knee hematoma Acute traumatic pain ?Pre-syncopal fall Constipation Incidental - Chronic compression fractures of T8, L1 and L2 Stable chronic problems, affecting patient care: Past Medical History Diagnosis Date Arthritis Atrial fibrillation (HCC) Chronic obstructive pulmonary disease (HCC) 08/24/2017 Chronic pain Congestive heart failure (CHF) (HCC) GERD (gastroesophageal reflux disease) Hypertension Osteoarthritis Pain management Psoriasis 24h: Complains of L rib pain - APS consult for rib block - gabapentin for pain control 100 mg BID - complains of L chest pain 2/2 rib fractures SBP 100-141 Start lovenox 30 BID - check factor Xa after 3rd dose Echo - EF 60% Check orthostatics Afebrile Hgb 13.7 from 13.8 Urology started ancef --> change to rocephin Plan: Neurological system #Acute traumatic left frontal and anterior hemispheric subdural hematoma 6mm, no mass effect - Patient received PCC at the OSH for Xarelto - No seizure prophylaxis at this time - Repeat CT in the morning - Elevate head of bed 30 degrees -No neurosurgical intervention indicated -Continue to hold OAC until OP follow up -May start DVT ppx in 48 hrs -No need for AED -CT head in 1-2 weeks OP # Chronic pain - Home amitriptyline --> no longer taking - Home baclofen nightly - home butrans #Acute pain - Multimodal pain control # At risk for delirium/acute encephalopathy - Delirium precautions: increase activity, limit nighttime disturbances, and avoid anticholinergic meds, benzos, etc Circulatory system # Atrial fibrillation, hypertension, HFpEF - 02/11/21 echo EF 68% - Hold Xarelto - atenolol 25 mg - Home Jardiance 10 mg - Repeat echo - SBP 110-160 - PRN anti-htn med - HOLD home Lasix 20 mg as needed edema Respiratory system # COPD # Acute traumatic left 3 through 7 rib fractures - Home Symbicort -> substitute Dulera - O2 protocol - Aggressive pulmonary hygiene Gastrointestinal system # GERD -Home Pepcid #Constipation - Bowel regimen Renal function - Strict I/Os #Gross hematuria - Labs and imaging reviewed - trend daily labs - Cr @baseline - UA +for infxn - check urine culture (p) - No acute urologic surgical intervention at this time - IV Abx - start ancef - adjust per culture results - obtain PVR - Optimize pain/nausea control - Monitor fevers/hypotension Immunologic system [x] Mupirocin for empiric MRSA decolonization x5 days - Monitor for fevers Hematologic system - Monitor hemoglobin Endocrine system (more content not included)... Normal [facility] XR CHEST 1 VIEWon 04-25-2025 XR CHEST 1 VIEW Patient Name: LESLI HERNANDEZ MS : 1940 Exam Date/Time: 04/25/2025 08:15 Procedure: XR CHEST 1 VIEW Ordering Provider: GARSIA LESLEY Reason For Exam: left rib fx CHEST CLINICAL INDICATION: Left rib fracture TECHNIQUE: AP portable chest COMPARISON: Radiograph from yesterday IMPRESSION: FINDINGS AND IMPRESSION: SUPPORT DEVICES: EKG leads OSSEOUS STRUCTURES: Postsurgical changes in the right shoulder. HEART AND MEDIASTINUM: The cardiomediastinal silhouette appears unchanged from the prior exam. LUNGS AND PLEURA: Pulmonary venous congestion with interstitial edema. Unchanged right basilar opacity and small right pleural effusion. Report Dictated on Electronically Signed By: Juanpablo Duarte MD Electronically Signed Date/Time: 04/25/2025 9:58 AM EDT Normal [facility] XR Chest Single viewon 04-25 FINDINGS AND IMPRESS ION: SUPPORT DEVICES: EKG leads OSSEOUS STRUCTURES: Postsurgical changes in the right shoulder. HEART AND MEDIASTINUM: The cardiomediastinal silhouette appears unchanged from the prior exam. LUNGS AND PLEURA: Pulmonary venous congestion with interstitial edema. Unchanged right basilar opacity and small right pleural effusion. Report Dictated on Electronically Signed By: Juanpablo Duarte MD Electronically Signed Date/Time: 04/25/2025 9:58 AM EDT [facility] Patient Name: LESLI HERNANDEZ MS : 1940 Exam Date/Time: 04/25/2025 08:15 Procedure: XR CHEST 1 VIEW Ordering Provider: GARSIA LESLEY Reason For Exam: left rib fx CHEST CLINICAL INDICATION: Left rib fracture TECHNIQUE: AP portable chest COMPARISON: Radiograph from [facility] Juanpablo Duarte MD - 04/25/2025 [facility] 1940 [id number] Exam Date/Time: 04/25/2025 08:15 Procedure: XR CHEST 1 VIEW Ordering Provider: GARSIA LESLEY Reason For Exam: left rib fx CHEST CLINICAL INDICATION: Left rib fracture TECHNIQUE: AP portable chest COMPARISON: Radiograph from yesterday IMPRESSION: FINDINGS AND IMPRESSION: SUPPORT DEVICES: EKG leads OSSEOUS STRUCTURES: Postsurgical changes in the right shoulder. HEART AND MEDIASTINUM: The cardiomediastinal silhouette appears unchanged from the prior exam. LUNGS AND PLEURA: Pulmonary venous congestion with interstitial edema. Unchanged right basilar opacity and small right pleural effusion. Report Dictated on Electronically Signed By: Juanpablo Duarte MD Electronically Signed Date/Time: 04/25/2025 9:58 AM EDT [facility] Radiology Study observation (narrative) [facility] XR Chest Single viewOrdered By: Juanpablo Duarte on 04-25-2025 [facility] Work Phone: BASIC METABOLIC PANELon 09-0 Anion gap [Moles/Vol] 5 mmol/L Normal 3-13 [facility] Comment on above: Performed By: #### L [id number] #### [facility]: ANGELICA LUZ ([id number]) [facility] [address] [place] [address] Calcium [Mass/Vol] 8.7 mg/dL Low 8.8-10.0 [facility] Comment on above: Performed By: #### L [id number] #### [facility]: ANGELICA LUZ ([phone]) [facility] ([employer]) [address] [place] [address] Chloride [Moles/Vol] 108 mmol/L High 98-107 [facility] Comment on above: Performed By: #### L [id number] #### [facility]: ANGELICA LUZ ([phone]) [facility]) [address] [place] [address] CO2 [Moles/Vol] 28 mmol/L Normal 23-31 [facility] Comment on above: Performed By: #### L [id number] #### [facility]: ANGELICA LUZ ([phone]) [facility] ([facility]) [address] [place] [address] Creatinine [Mass/Vol] 0.51 mg/dL Low 0.57-1.11 [facility] Comment on above: Performed By: #### L [id number] #### [facility]: ANGELICA LUZ ([phone]) [facility]) [address] [place] [address] GLOMERULAR FILTRATION RATE ML/MIN/1.73 SQ M.PREDICTED >90.0 Normal >60.0 [facility] Comment on above: Result Comment: Calc ulation based on the Chronic Kidney Disease Epidemiology Collaboration (CKD-EPI) equation refit without adjustment for race Performed By: #### L [id number] #### [facility]: ANGELICA LUZ ([id number]) [facility] ([facility]) [address] [place] [address] Glucose [Mass/Vol] 91 mg/dL Normal 82-115 [facility] Comment on above: Performed By: #### L [id number] #### [facility]: ANGELICA LUZ ([id number]) [facility]) [address] [place] [address] [place] Potassium [Moles/Vol] 4.2 mmol/L Normal 3.5-5.1 [facility] Comment on above: Result Comment: [facility] potassium values may be up to 0.5 mmol/L lower than serum values. Performed By: #### L [id number] #### [facility]: ANGELICA LUZ ([id number]) [facility]) [address] [place] [address] Sodium [Moles/Vol] 141 mmol/L Normal 136-145 [facility] Comment on above: Performed By: #### L [id number] #### [facility]: AGNELICA LUZ ([id number]) [facility] ([facility]) [address] [place] [address] Urea nitrogen [Mass/Vol] 19 mg/dL Normal 9-23 [facility] Comment on above: Performed By: #### L [id number] #### [facility]: ANGELICA LUZ ([id number]) [facility] ([facility]) [address] [place] [address] Basic metabolic 1998 panelon 04-24-2025 Anion gap [Moles/Vol] 5 mmol/L 3 - 13 mmol/L [facility] Calcium [Mass/Vol] 8.7 mg/dL Low 8.8 - 10. 0 mg/dL [facility] Chloride [Moles/Vol] 108 mmol/L High 98 - 10 7 mmol/L [facility] CO2 [Moles/Vol] 28 mmol/L 23 - 31 mmol/L [facility] Creatinine [Mass/Vol] 0.51 mg/dL Low 0.57 - 1.11 mg/dL [facility] GFR/1.73 sq M.predicted (S/P/Bld) [Vol rate/Area] - PINF [facility] Comment on above: Calculation based on the Chronic Kidney Disease Epidemiology Collaboration (CKD-EPI) equation refit without adjustment for race Glucose [Mass/Vol] 91 mg/dL 82 - 115 mg/dL [facility] Interpretation and review of laboratory results Abnormal [facility] Potassium [Moles/Vol] 4.2 mmol/L 3.5 - 5.1 mmol/L [facility] Comment on above: Plasma potassium jose ues may be up to 0.5 mmol/L lower than serum values. Sodium [Moles/Vol] 141 mmol/L 136 - 145 mmol/L [facility] Urea nitrogen [Mass/Vol] 19 mg/dL 9 - 23 mg/dL [facility] CBC W Auto Differential pane l (Bld)Ordered By: Ortiz Donovan on 04-24-2025 Basophils (Bld) [#/Vol] 0.1 10*3/uL 0.0 - 0.2 10*3/uL [facility] Basophils/100 WBC (Bld) 0.4 % 0.0 - 2.0 % [facility] Eosinophils (Bld) [#/Vol] 0.1 10*3/uL 0.0 - 0.5 10*3/uL [facility] Eosinophils/100 WBC (Bld) 1.1 % 0.0 - 6.0 % [facility] Erythrocyte distribution width (RBC) [Ratio] 14.2 % 11.5 - 15.0 % [facility] Hematocrit (Bld) [Volume fraction] 44.6 % 35.0 - 47.0 % [facility] Hemoglobin (Bld) [Mass/Vol] 13.8 g/dL 11.7 - 16.0 g/dL [facility] Immature granulocytes (Bld) [#/Vol] 0 10*3/uL NINF - 0.1 10*3/uL [facility] Immature granulocytes/100 WBC (Bld) 0.4 % 0.0 - 2.0 % [facility] Interpretation and review of laboratory results Abnormal [facility] Lymphocytes (Bld) [#/Vol] 1.4 10*3/uL 1.0 - 4.3 10*3/uL [facility] Lymphocytes/100 WBC (Bld) 12.4 % Low 15.0 - 45.0 % [facility] MCH (RBC) [Entitic mass] 32.9 pg 26.0 - 34.0 pg [facility] MCHC (RBC) [Mass/Vol] 30.9 % 30.5 - 36.0 % [facility] MCV (RBC) [Entitic vol] 106.2 fL High 77.0 - 99.0 fL [facility] Monocytes (Bld) [#/Vol] 1.1 10*3/uL High 0.0 - 0.9 10*3/uL [facility] Monocytes/100 WBC (Bld) 9.6 % 5.0 - 13.0 % [facility] Neutrophils (Bld) [#/Vol] 8.6 10*3/uL High 1.8 - 7.5 10*3/uL [facility] Neutrophils/100 WBC (Bld) 76.1 % 38.0 - 82.0 % [facility] Nucleated RBC/100 WBC (Bld) [Ratio] 0 % [facility] Platelet mean volume (Bld) [Entitic vol] 10.3 fL 9.0 - 12.7 fL [facility] Platelets (Bld) [#/Vol] 157 10*3/uL 140 - 440 10*3/uL [facility] RBC (Bld) [#/Vol] 4.2 10*6/uL 3.80 - 5.20 10*6/uL [facility] WBC (Bld) [#/Vol] 11.3 10*3/uL High 3.6 - 10.7 10*3/uL [facility] CBC WITH AUTO DIFFERENTIALon 04-24-2025 Basophils (Bld) [#/Vol] 0.1 10*3/uL Normal 0.0-0.2 [facility] Comment on above: Performed By: #### L [id number] ####[facility]: ANGELICA LUZ ([phone])[facility])[address] [place] [address] Basophils/100 WBC (Bld) 0.4 % Normal 0.0-2.0 [facility] Comment on above: Performed By: #### L [id number] ####[facility]: ANGELICA LUZ ([id number])[address] Eosinophils (Bld) [#/Vol] 0.1 10*3/uL Normal 0.0-0.5 [facility] Comment on above: Performed By: #### L [id number] ####[facility]: ANGELICA LUZ ([id number])[facility])[address] [place] [address] Eosinophils/100 WBC (Bld) 1.1 % Normal 0.0-6.0 [facility] Comment on above: Performed By: #### L [id number] ####[facility]: ANGELICA LUZ ([id number])[address] Erythrocyte distribution width (RBC) [Ratio] 14.2 % Normal 11.5-15.0 [facility] Comment on above: Performed By: #### L [id number] ####[facility]: ANGELICA LUZ ([id number])[facility])[address] [place] [address] Hematocrit (Bld) [Volume fraction] 44.6 % Normal 35.0-47.0 [facility] Comment on above: Performed By: #### L [id number] ####[facility]: ANGELICA LUZ ([id number])[facility])[address] [place] [address] Hemoglobin (Bld) [Mass/Vol] 13.8 g/dL Normal 11.7-16.0 [facility] Comment on above: Performed By: #### L [id number] ####[facility]: ANGELICA LUZ ([id number])[facility])[address] [place] [address] IMMATURE GRANS % 0.4 % Normal 0.0-2.0 [facility] Comment on above: Performed By: #### L [id number] ####[facility]: ANGELICA LUZ ([id number])[facility])[address] [place] [address] IMMATURE GRANS ABSOLUTE 0.0 10*3/uL Normal <0.1 [facility] Comment on above: Performed By: #### L [id number] ####[facility]: ANGELICA LUZ ([id number])[facility])[address] [place] [address] Lymphocytes (Bld) [#/Vol] 1.4 10*3/uL Normal 1.0-4.3 [facility] Comment on above: Performed By: #### L [id number] ####[facility]: ANGELICA LUZ ([id number])[facility])[address] [place] [address] Lymphocytes/100 WBC (Bld) 12.4 % Low 15.0-45.0 [facility] Comment on above: Performed By: #### L [id number] ####[facility]: ANGELICA LUZ ([id number])[facility] ([facility])[address] [place] [address] MCH (RBC) [Entitic mass] 32.9 pg Normal 26.0-34.0 [facility] Comment on above: Performed By: #### L [id number] ####[facility]: ANGELICA LUZ ([phone])[facility])[address] [place] [address] MCHC 30.9 % Normal 30.5-36.0 [facility] Comment on above: Performed By: #### L [id number] ####[facility]: ANGELICA LUZ ([id number])[facility])[address] [place] [address] MCV (RBC) [Entitic vol] 106.2 fL High 77.0-99.0 [facility] Comment on above: Performed By: #### L [id number] ####[facility]: ANGELICA LUZ ([id number])[facility])[address] [place] [address] Monocytes (Bld) [#/Vol] 1.1 10*3/uL High 0.0-0.9 [facility] Comment on above: Performed By: #### L [id number] ####[facility]: ANGELICA LUZ ([id number])[facility])[address] [place] [address] Monocytes/100 WBC (Bld) 9.6 % Normal 5.0-13.0 [facility] Comment on above: Performed By: #### L [id number] ####[facility]: AGNELICA LUZ ([id number])[facility])[address] [place] [address] NEUTROPHILS ABSOLUTE 8.6 10*3/uL High 1.8-7.5 [facility] Comment on above: Performed By: #### L [id number] ####[facility]: ANGELICA LUZ ([id number])[facility])[address] [place] [address] Neutrophils/100 WBC (Bld) 76.1 % Normal 38.0-82.0 [facility] Comment on above: Performed By: #### L [id number] ####[facility]: ANGELICA LUZ ([id number])[facility] ([facility])[address] [place] [address] NRBC 0.0 /100 WBCs Normal 0.0-2.0 [facility] Comment on above: Performed By: #### L [id number] ####[facility]: ANGELICA LUZ ([id number])[facility] ([facility])[address] [place] [address] Platelet mean volume (Bld) [Entitic vol] 10.3 fL Normal 9.0-12.7 [facility] Comment on above: Performed By: #### L [id number] ####[facility]: ANGELICA LUZ ([id number])[facility] ([facility])[address] [place] [address] Platelets (Bld) [#/Vol] 157 10*3/uL Normal 140-440 [facility] Comment on above: Performed By: #### L [id number] ####[facility]: ANGELICA LUZ ([id number])[facility] ([facility])[address] [place] [address] RBC (Bld) [#/Vol] 4.20 10*6/uL Normal 3.80-5.20 [facility] Comment on above: Performed By: #### L [id number] ####[facility]: ANGELICA LUZ ([id number])[facility] ([facility])[address] [place] [address] WBC (Bld) [#/Vol] 11.3 10*3/uL High 3.6-10.7 [facility] Comment on above: Performed By: #### L [id number] ####[facility]: ANGELICA LUZ ([id number])[facility])[address] [place] [address] COMPLETE URINALYSIS WITH REF JOSEPH TO CULTUREon 04-24-2025 BACTERIA (#/HPF) IN URINE Moderate Abnormal Negative [facility] Comment on above: Performed By: #### L [id number], [id number] ####[facility]: ANGELICA LUZ ([id number])[facility] ([facility])[address] [place] [address] BILIRUBIN, TOTAL PRESENCE IN URINE Negative Normal Negative [facility] Comment on above: Performed By: #### L [id number], [id number] ####[facility]: ANGELICA LUZ ([id number])[facility] ([facility])[address] [place] [address] Clarity (U) Turbid Abnormal Clear [facility] Comment on above: Performed By: #### L [id number], [id number] ####[facility]: ANGELICA LUZ ([id number])[facility] ([facility])[address] [place] [address] Color (U) Light [place] Abnormal Lt. Yellow [facility] Comment on above: Performed By: #### L [id number], [id number] ####[facility]: ANGELICA LUZ ([id number])[facility] ([facility])[address] [place] [address] GLUCOSE (MG/DL) IN URINE >1,000 Abnormal Normal (<70) [facility] Comment on above: Performed By: #### L [id number], [id number] ####[facility]: ANGELICA LUZ ([id number])[facility] ([facility])[address] [place] [address] HEMOGLOBIN PRESENCE IN URINE >1.0 Abnormal Negative [facility] Comment on above: Performed By: #### L [id number], [id number] ####[facility]: ANGELICA LUZ ([id number])[facility] ([facility])[address] [place] [address] Ketones Ql (U) Negative Normal Negative [facility] Comment on above: Performed By: #### L [id number], [id number] ####[facility]: ANGELICA LUZ ([id number])[facility] ([facility])[address] [place] [address] LEUKOCYTE ESTERASE PRESENCE IN URINE BY TEST STRIP 500 Dawit/uL Abnormal Negative [facility] Comment on above: Performed By: #### L [id number], [id number] ####[facility]: ANGELICA LUZ ([id number])[facility])[address] [place] [address] [place] MUCUS (#/LPF) IN URINE SEDIMENT Few Normal Negative [facility] Comment on above: Performed By: #### L [id number], [id number] ####[facility]: ANGELICA LUZ ([id number])[facility])[address] [place] [address] NITRITE PRESENCE IN URINE Negative Normal Negative [facility] Comment on above: Performed By: #### L [id number], [id number] ####[facility]: ANGELICA LUZ ([id number])[facility])[address] [place] [address] pH (U) 7.0 [pH] Normal 5.0-8.0 [facility] Comment on above: Performed By: #### L [id number], [id number] ####[facility]: ANGELICA LUZ ([id number])[facility])[address] [place] [address] Protein (U) [Mass/Vol] 100 mg/dL Abnormal Negative [facility] Comment on above: Performed By: #### L [id number], [id number] ####[facility]: ANGELICA LUZ ([id number])[facility])[address] [place] [address] [place] RBC (#/HPF) IN URINE SEDIMENT 51-100 Abnormal 0-2 [facility] Comment on above: Performed By: #### L [id number], [id number] ####[facility]: ANGELICA LUZ ([id number])[facility])[address] [place] [address] Specific gravity (U) [Rel density] 1.032 High 1.005-1.03 0 [facility] Comment on above: Result Comment: MENDOZA Soliz COMMENTS: This specimen has been reflexed to urine culture. Performed By: #### L [id number], [id number] ####[facility]: ANGELICA LUZ ([id number])[facility] ([facility])[address] [place] [address] SQUAMOUS EPITHELIAL CELLS (#/HPF) IN URINE SEDIMENT 3-5 Normal 3-5 [facility] Comment on above: Performed By: #### L [id number], [id number] ####[facility]: ANGELICA LUZ ([id number])[facility] ([facility])[address] [place] [address] UROBILINOGEN (MG/DL) IN URINE Normal Normal Normal (0-1) [facility] Comment on above: Performed By: #### L [id number], [id number] ####[facility]: ANGELICA LUZ ([id number])[facility] ([facility])[address] [place] [address] WBC (LEUKOCYTE) (#/HPF) IN URINE SEDIMENT >100 Abnormal 0-5 [facility] Comment on above: Performed By: #### L [id number], [id number] ####[facility]: ANGELICA LUZ ([id number])[facility])[address] [place] [address] WBC (LEUKOCYTE) CLUMPS (#/HPF) IN URINE SEDIMENT Few Abnormal Negative [facility] Comment on above: Performed By: #### L [id number], [id number] ####[facility]: ANGELICA LUZ ([id number])[facility] ([facility])[address] [place] [address] Consulton 04-24-2025 Consult ------ -- Attestation signed by Hi Bear MD at 04/25/2025 3:16 PM I saw and evaluated the patient, participating in the romero portions of the service. I reviewed the resident?s note. I agree with the resident?s findings and plan. Hi Bear MD -- Urology Inpatient Consultation 04/24/2025 HISTORY OF PRESENT ILLNESS: The patient is a 85 y.o.female who is admitted for fall. Past medical history as listed below. Patient is unknown to our service. Urology is consulted this admission for hematuria, post tauma day 2 . Today, patient reports voiding well. Has external catheter. Noticed hematuria one time prior after a fall. Improved on its own after ~1mo. No other urinary complaints at this time. Feels as though she empties well. Has not noticed any clots. Urologic history: No prior PAST MEDICAL HISTORY: Medical History[1] PAST SURGICAL HISTORY: Surgical History[2] ALLERGIES: Allergies[3] CURRENT MEDICATIONS: Current Medications[4] FAMILY HISTORY: Family History[5] Social History: Social History Socioeconomic History Marital status: Spouse name: Not on file Number of children: Not on file Years of education: Not on file Highest education level: Not on file Occupational History Not on file Tobacco Use Smoking status: Former Current packs/day: 0.00 Average packs/day: 1 pack/day for 17.0 years (17.0 ttl pk-yrs) Types: Cigarettes Start date: 05/29/1959 Quit date: 05/29/1976 Years since quittin.9 Smokeless tobacco: Never Vaping Use Vaping status: Never Used Substance and Sexual Activity Alcohol use: No Drug use: No Sexual activity: Not on file Other Topics Concern Not on file Social History Narrative Not on file Social Drivers of Health Financial Resource Strain: Not on file Food Insecurity: Not on file Transportation Needs: No Transportation Needs (04/23/2025) PRAPARE - Transportation Lack of Transportation (Medical): No Lack of Transportation (Non-Medical): No Physical Activity: Not on file Stress: Not on file Social Connections: Not on file Intimate Partner Violence: Not At Risk (04/23/2025) Humiliation, Afraid, Rape, and Kick questionnaire Fear of Current or Ex-Partner: No Emotionally Abused: No Physically Abused: No Sexually Abused: No Housing Stability: Low Risk (04/23/2025) Housing Stability Vital Sign Unable to Pay for Housing in the Last Year: No Number of Times Moved in the Last Year: 1 Homeless in the Last Year: No ROS: See HPI PHYSICAL EXAM: VITALS: BP 112/59 (BP Location: Right arm, Patient Position: Sitting) Pulse 75 Temp 36.7 ?C (98.1 ?F) (Temporal) Resp 19 Ht 5' (1.524 m) Wt 143 lb 1.3 oz (64.9 kg) SpO2 95% BMI 27.94 kg/m? General: Alert, in no acute distress Respiratory: no respiratory distress, normal effort Abdomen: soft, non distended, non tender : no suprapubic tenderness. Ext cath in place draining turbid red-orange urine DATA: LABS: BMP: Lab Results Component Value Date GLUCOSE 91 04/24/2025 CALCIUM 8.7 (L) 04/24/2025 NA 141 04/24/2025 K 4.2 04/24/2025 CO2 28 04/24/2025 CL 108 (H) 04/24/2025 BUN 19 04/24/2025 CREATININE 0.51 (L) 04/24/2025 CBC: Lab Results Component Value Date WBC 11.3 (H) 04/24/2025 HGB 13.8 04/24/2025 HCT 44.6 04/24/2025 MCV 106.2 (H) 04/24/2025 PLT 157 04/24/2025 Urinalysis: No results found for: "UA" Urine Culture: No components found for: UCX RADIOLOGY: Reviewed. IMPRESSION & PLAN: 85 y.o. female with gross hematuria - Labs and imaging reviewed - trend daily labs - Cr @baseline - UA +for infxn - check urine culture (p) - No acute urologic surgical intervention at this time - IV Abx - start ancef - adjust per culture results - obtain PVR - Optimize pain/nausea control - Monitor fevers/hypotension - Remainder of care per primary team - Urology will sign off at this time - follow up outpatient prn - Please re-engage with any questions or concerns Alicia Arredondo DO Urology PGY-2 04/24/2025 5:05 PM Please page Senior Drafter Urology Resident with questions [1] Past Medical History: Diagnosis Date Arthritis Atrial fibrillation (HCC) Chronic obstructive pulmonary disease (HCC) 08/24/2017 Chronic pain Congestive heart failure (CHF) (HCC) GERD (gastroesophageal reflux disease) Hypertension Osteoarthritis Pain management Psoriasis [2] Past Surgical History: Procedure Laterality Date ABDOMINAL SURGERY bladder bowel all dropped APPENDECTOMY BACK SURGERY BLADDER SUSPENSION BRONCHOSCOPY (HISTORICAL) 06/28/2017 Bronch ENB CHOLECYSTECTOMY COLONOSCOPY FINGER SURGERY HERNIA REPAIR 1959' umbilical SHOULDER SURGERY Right SPINE SURGERY 1984 TOTAL ABDOMINAL HYSTERECTOMY UPPER GASTROINTESTINAL ENDO (more content not included)... Normal [facility] Laboratory - Chemistry and C hemistry - challengeon 04-24-2025 Glucose [Mass/Vol] 119 mg/dL High 70 - 100 mg/dL [facility] Glucose [Mass/Vol] 123 mg/dL High 70 - 100 mg/dL [facility] Glucose [Mass/Vol] 123 mg/dL High 70 - 100 mg/dL [facility] Glucose [Mass/Vol] 93 mg/dL 70 - 100 mg/dL [facility] No Panel Informationon 04-24 Interpretation and review of laboratory results Abnormal [facility] Performed by: [place] [address] CLIA ID: [id number] [facility] Interpretation and review of laboratory results Abnormal [facility] Performed by: [address] [address] CLIA ID: [id number] [facility] Interpretation and review of laboratory results Abnormal [facility] Performed by: [address] [address] CLIA ID: [id number] [facility] Interpretation and review of laboratory results Normal [facility] Performed by: [address] [address] CLIA ID: [id number] [facility] Progress Noteon 04-24-2025 Progress Note PHYSICAL THERAPY [facility] Treatment Note Name/MRN: Lesli Rosales ([id number]) Date of : 1940 Age: 85 y.o. Room/Bed: W3-325/W3-325 A Discharge Recommendation: IP Rehab Equipment Needed: No Assessment Pt is primarily limited by rib and L shoulder pain during therapy this date. Irritable, but agreeable to work with PT. Mod A for bed mobility and mod A with retro balance noted for transfer tasks with PT used for support. Pt had sling on at PT arrival and maintained throughout session. Rec IP rehab upon discharge to continue to address deficits post acute care. Subjective Pt reclined in bed and agreeable to therapy. States she is hurting today in her L shoulder and ribs and it gets worse when she moves. RN cleared pt for PT. Pain: 0-10 pain scale: 8/10 Location: L shoulder/ribs Medical Precautions: No active isolations Proper PPE donned/doffed in accordance with facility standards. Fall Risk: Curry Fall Risk Score: 85 (Low Risk) Curry Fall Risk Score: 85 (High Risk) NWB L UE noted in order set, ortho note states WBAT. Pt in sling at PT arrival and significantly limited by L shoulder and rib pain with any functional mobility tasks. NWB L UE maintained throughout session. Precautions/Restrictions: Lines/Drains/Airways: purewick, SPO2, tele, NC Overall Cognitive Status: Exceptions - Arousal/alertness: drowsy during there ex but improved with sitting EOB - Safety judgement: decreased awareness of need for safety - Problem solving: assistance required to generate solutions, assistance required to identify errors made, and decreased awareness of errors - Insights: decreased awareness of deficits Overall Orientation Status: Oriented x4 Family/Caregiver Present: none Objective Bed Mobility Supine to sit: Mod Assist Sit to supine: Mod Assist Use of bed features and VC Transfers/Mobility Sit to stand: Mod Assist, retro initially but improved with static stand Sitting balance: Modified Independent, Supervision Standing balance: Contact Guard, Min Assist Narrow GALLO Device(s) used: Used therapist for support Ambulation Ambulation 1 Assistive device(s) used: Used therapist for support Assist level: Min Assist Distance (ft): 1 step toward HOB laterally Quality of gait: slow carla, instability through all phases Exercises Exercises Quad Sets: x10 BLE Heelslides: AAROM R LE, AROM L LE x10 each Gluteal Sets: x10 Hip Abduction: supine x 10 BLE AROM Hip Adduction: supine x10 BLE AROM Knee Long Arc Quad: 2x5 BLE Ankle Pumps: x10 BLE Plan Continue acute PT per plan of care. Safety/Education Safety Safety Devices in place: call light within reach, left in bed, gait belt, patient at risk for falls, and no alarms engaged upon entry Restraints: N/A Education Education Given To: patient Education Provided: PT Role, Plan of Care, Transfer Training, Discharge Recommendations, and Benefits of Increasing Activity Education Method: Verbal and Demonstration Barriers to Learning: Agitation, Cognition Education Outcome: Continued Education Needed Outcome Measures AM-PAC AM-PAC Inpatient Mobility Raw Score (No Stairs) : 10 JH-HLM JH-HLM Score: Sat at edge of bed Goals Patient Stated Goal: Encounter Problems Encounter Problems (Active) Balance Patient will maintain dynamic standing balance for 3 minutes with CGA in order to demonstrate decreased risk of falling. Start: 04/23/25 Expected End: 05/14/25 Mobility Patient will ambulate 30 feet with CGA and rolling walker in order to improve safety and independence with mobility. Start: 04/23/25 Expected End: 05/14/25 Transfers Patient will perform bed mobility with CGA in order to improve independence and prepare for out of bed mobility. Start: 04/23/25 Expected End: 05/14/25 Patient will complete sit to stand transfer with CGA to wheeled walker in order to improve safety and prepare for out of bed mobility. Start: 04/23/25 Expected End: 05/14/25 Therapy Time Individual Co-treatment Time In 1211 Time Out 1239 Minutes 28 Timed Code Treatment Minutes: 28 Minutes (FA, TP) Jenelle Richards, PT [facility] Progress Note Nutrition rescreen completed. Chart reviewed. Patient to be monitored and followed by the diet civil drafting technician. ARVIND Owen [facility] Progress Note ------ -- Attestation signed by Domonique Gonzalez MD at 04/24/2025 12:31 PM ~~~~~~~~~~~~~~~~~~~~~~~~~~ ~~~~~~~~~~~~~~~~~~~~~~~~~~ ~~~~~~~~~ ATTENDING ADDENDUM Problem List[1] I have personally performed a face to face diagnostic evaluation on this patient. I have reviewed and agree with the care plan as documented above by my SHUTTLE DRIVER/KILEY. I personally discussed the review of systems and interviewed the patient along with performing a physical examination. In addition, I discussed the patient's condition and treatment options with him/her when possible. All of the patient's questions were answered and family updated when appropriate and possible. I I performed a physical exam and ROS on the same date of service as above. My findings agree with the above note except for any details corrected below. A complete review of systems was obtained and is negative except as stated in HPI. HPI: 85 y.o. female status post fall from standing height the incident happened around afternoon on 04/22. The patient was walking through her living room after folding some laundry and fell to the ground striking her right knee and left chest. She is unable to identify the cause of her fall however she does report that she was feeling somewhat dizzy and had a headache throughout the day preceding the fall. She denies any loss of consciousness. Her pain is currently 8/10. She is on Xarelto for A-fib. Patient initially presented to [facility] and was found to have a subdural hematoma 6 mm. She was given PCC prior to transfer for direct admission to T2 ICU. Imaging reviewed and independently interpreted: CT chest reviewed -multiple acute/chronic rib fractures --> suspect acute 3 through 7 rib fractures anterior on the L CTH - left frontal and interhemispheric subdural hematoma measuring 6 mm without mass effect Problem list: Acute, acute on chronic, unstable or uncontrolled chronic problems/diagnoses: Acute traumatic left frontal and anterior hemispheric subdural hematoma 6mm, no mass effect Acute traumatic left 3 through 7 rib fractures Left shoulder osteoarthritis and a right knee hematoma Acute traumatic pain ?Pre-syncopal fall Incidental - Chronic compression fractures of T8, L1 and L2 Stable chronic problems, affecting patient care: [Medical History] [Medical History] Past Medical History Diagnosis Date Arthritis Atrial fibrillation (HCC) Chronic obstructive pulmonary disease (HCC) 08/24/2017 Chronic pain Congestive heart failure (CHF) (HCC) GERD (gastroesophageal reflux disease) Hypertension Osteoarthritis Pain management Psoriasis 24h: Geriatric and palliative consultation - Appreciate recommendations Restart gabapentin for pain control 100 mg BID - complains of L chest pain 2/2 rib fractures Patient will need medication reconciliation -Patient no longer taking gabapentin and amitriptyline at home -Takes baclofen nightly Low SBP yesterday - improved today 100s - cont home Start DVT ppx tomorrow PTOT rehab Echo - EF 60% Check orthostatics Plan: Neurological system #Acute traumatic left frontal and anterior hemispheric subdural hematoma 6mm, no mass effect - Patient received PCC at the OSH for Xarelto - No seizure prophylaxis at this time - Repeat CT in the morning - Elevate head of bed 30 degrees -No neurosurgical intervention indicated -Continue to hold OAC until OP follow up -May start DVT ppx in 48 hrs -No need for AED -CT head in 1-2 weeks OP # Chronic pain - Home amitriptyline --> no longer taking - Home baclofen nightly - home butrans #Acute pain - Multimodal pain control # At risk for delirium/acute encephalopathy - Delirium precautions: increase activity, limit nighttime disturbances, and avoid anticholinergic meds, benzos, etc Circulatory system # Atrial fibrillation, hypertension, HFpEF - 02/11/21 echo EF 68% - Hold Xarelto - atenolol 25 mg - Home Jardiance 10 mg - Repeat echo - SBP 110-160 - PRN anti-htn med - HOLD home Lasix 20 mg as needed edema Respiratory system # COPD # Acute traumatic left 3 through 7 rib fractures - Home Symbicort -> substitute Dulera - O2 protocol - Aggressive pulmonary hygiene Gastrointestinal system # GERD -Home Pepcid - Bowel regimen Renal function - Strict I/Os Immunologic system [x] Mupirocin for empiric MRSA decolonization x5 days - Monitor for fevers Hematologic system - Monitor hemoglobin Endocrine system - Monitor glucose Integumentary system (GI and cutaneous) - Skin checks # Right knee hematoma - CTM Musculoskeletal system - PTOT #left shoulder osteoarthritis and a right knee hematoma - Orthopedic consultation - Nonweightbearing left upper extremity -Patient is nontender in the left anatomic snuffbox and there is no evidence of acute fracture of the left scaphoid on scaphoi (more content not included)... Normal [facility] URINE CULTUREon 04-24-2025 Bacteria identified Cx Nom (U) URINE CULTURE Reference Normal urogenital liseth present PROTEUS MIRABILIS >100,000 CFU/mL Proteus mirabilis (A) ENTEROCOCCUS FAECALIS 50,000-90,000 CFU/mL Enterococcus faecalis (A) Susceptibility testing performed only upon request for cultures with multiple types of microorganisms below 100,000 CFU/ml. Organism: PROTEUS MIRABILIS Antibiotic [place] Interpretation Status Amoxicillin / Clavulanate <=2 ug/ml S F Ampicillin <=2 ug/ml S F Ampicillin / Sulbactam <=2 ug/ml S F Aztreonam <=1 ug/ml S F Cefazolin 2 ug/ml S F Cefepime <=0.12 ug/ml S F Ceftriaxone <=0.25 ug/ml S F Cefuroxime axetil <=1 ug/ml S F Ciprofloxacin <=0.06 ug/ml S F Ertapenem <=0.12 ug/ml S F Gentamicin <=1 ug/ml S F Levofloxacin <=0.12 ug/ml S F Meropenem <=0.25 ug/ml S F Nitrofurantoin 128 ug/ml R F Piperacillin / Tazobactam <=4 ug/ml S F Trimethoprim / Sulfamethoxazole <=20 ug/ml S F [ S = SUSCEPTIBLE R = RESISTANT I = INTERMEDIATE S-DD = Susceptible-dose dependent NS = Non-susceptible NO = No Interpretation ] Normal [facility] Comment on above: Performed By: #### L [id number] ####Food Service Worker Hospital: ANGELICA LUZ ([id number])[address] Urinalysis complete panel (U )Ordered By: Melissa Rosales on 04-24-2025 Bacteria LM.HPF (Urine sed) [#/Area] Moderate Abnormal Negative /HPF [facility] Bilirubin Ql (U) Negative Negative mg/dL [facility] Clarity (U) Turbid Abnormal Clear [facility] Color (U) Light [place] Abnormal Lt. Yellow [facility] Epithelial cells.squamous LM.HPF (Urine sed) [#/Area] 3-[facility] Glucose Ql (U) >1,000 Abnormal Normal (<70) mg/dL [facility] Hemoglobin Ql (U) >1.0 Abnormal Negative mg/dL [facility] Interpretation and review of laboratory results Abnormal [facility] Ketones (U) [Mass/Vol] Negative Negat petr mg/dL [facility] Leukocyte clumps LM.HPF (Urine sed) [#/Area] Few Abnormal Negative /HPF [facility] Leukocyte esterase Test strip Ql (U) 500 Abnormal Negative [place]/uL [facility] Mucus LM.HPF (Urine sed) [#/Area] Few Negative /LPF [facility] Nitrite Ql (U) Negative Negative [facility] th pH (U) 7.0 [pH] 5.0 - 8.0 pH [facility] Protein (U) [Mass/Vol] 100 mg/dL Abnormal Negative [facility] RBC LM.HPF (Urine sed) [#/Area] 51-100 Abnormal [facility] Specific gravity (U) [Rel density] 1.032 High 1.005 - 1.030 [facility] Urobilinogen (U) [Mass/Vol] Normal Normal (0-1) mg/dL [facility] WBC LM.HPF (Urine sed) [#/Area] /[HPF] Abnormal [facility] This specimen has be en reflexed to urine culture. [facility] XR CHEST 1 VIEWon 04-24-2025 XR CHEST 1 VIEW Patient Name: LESLI HERNANDEZ MS : 1940 Exam Date/Time: 04/24/2025 06:44 Procedure: XR CHEST 1 VIEW Ordering Provider: GARSIA LESLEY Reason For Exam: left rib fx CHEST - PORTABLE: CLINICAL INDICATION: left rib fx. Chest pain. TECHNIQUE: Portable AP COMPARISON: One day ago. IMPRESSION: FINDINGS/IMPRESSION: Limitations: Patient positioning/severe rotation. Lines, tubes, and devices: None. Cardiomediastinal silhouette: Not well evaluated but likely unchanged. Lungs/Pleura: Relatively small layering pleural effusions left side greater than right with bibasilar airspace disease, new or progressed. Pulmonary vascular congestion/interstitial edema overall fairly similar. No pneumothorax. Osseous structures: Unchanged in appearance including minimally displaced lateral right second rib fracture. Soft tissues: No soft tissue abnormality is detected. Report Dictated on Electronically Signed By: Rod Dash MD Electronically Signed Date/Time: 04/24/2025 7:08 AM EDT [facility] XR Chest Single viewon 04-24 FINDINGS/IMPRESSION: Limitations: Patient positioning/severe rotation. Lines, tubes, and devices: None. Cardiomediastinal silhouette: Not well evaluated but likely unchanged. Lungs/Pleura: Relatively small layering pleural effusions left side greater than right with bibasilar airspace disease, new or progressed. Pulmonary vascular congestion/interstitial edema overall fairly similar. No pneumothorax. Osseous structures: Unchanged in appearance including minimally displaced lateral right second rib fracture. Soft tissues: No soft tissue abnormality is detected. Report Dictated on Electronically Signed By: Rod Dash MD Electronically Signed Date/Time: 04/24/2025 7:08 AM EDT [facility] Patient Name: LESLI HERNANDEZ MS : 1940 Exam Date/Time: 04/24/2025 06:44 Procedure: XR CHEST 1 VIEW Ordering Provider: GARSIA LESLEY Reason For Exam: left rib fx CHEST - PORTABLE: CLINICAL INDICATION: left rib fx. Chest pain. TECHNIQUE: Portable AP COMPARISON: One day ago. [facility] Sylvester Dash MD - 04/24/2025 Patient Name: LESLI ROSALES : 1940 Exam Date/Time: 04/24/2025 06:44 Procedure: XR CHEST 1 VIEW Ordering Provider: GARSIA LESLEY Reason For Exam: left rib fx CHEST - PORTABLE: CLINICAL INDICATION: left rib fx. Chest pain. TECHNIQUE: Portable AP COMPARISON: One day ago. IMPRESSION: FINDINGS/IMPRESSION: Limitations: Patient positioning/severe rotation. Lines, tubes, and devices: None. Cardiomediastinal silhouette: Not well evaluated but likely unchanged. Lungs/Pleura: Relatively small layering pleural effusions left side greater than right with bibasilar airspace disease, new or progressed. Pulmonary vascular congestion/interstitial edema overall fairly similar. No pneumothorax. Osseous structures: Unchanged in appearance including minimally displaced lateral right second rib fracture. Soft tissues: No soft tissue abnormality is detected. Report Dictated on Electronically Signed By: Rod Dash MD Electronically Signed Date/Time: 04/24/2025 7:08 AM EDT [employer] [facility] Study observation (narrative) [employer] XR Chest Single viewOrdered By: Sylvester Dash on 04-24-2025 [employer] Work Phone: [phone] 04-23-2025 [id number] Patient is currently active with [employer] [facility]. The patients current certification period will on 05/02/25. The patient is currently receiving SN/PT/OT/GEAR REPAIR SUPERVISOR services through the agency. Cut Out Stitcher to continue to follow. Normal [employer] [facility] [id number] 04-23-2025 [id number] Care Managment Initi al Assessment Date: 04/23/2025 Patient Name: Lesli Rosales : 1940 Patient Information Source of Information: Patient Cognition/Language: WFL - Within Functional Limits Permission given to speak with patient payable representative/caregiver as indicated: Yes Confirmation of Payer with patient/family: Yes Payer Name: [facility] medicare [place]: No Confirmation of Primary Care Physician: Confirmed PCP Name: Marty Guthrie MD Seen in last 2 years?: Yes Primary Caregiver: Self If assistance needed, confirmed caregiver ready, willing and able to care for patient at discharge: Yes Confirmed with: Lesli Living Arrangements Current Residence: Private Residence Number of Floors 1 Number of Entry Steps: 4 Bed/Bath Levels: Both first floor Facility: Facility Name: Plan to Return: Lives with: Children Support Systems: Children, Family members Activities of Daily Living Ambulation: Assistance (walker) Bathing/Dressing: Independent Elimination/Continence/Constantino leting: Independent Feeding: Independent Who Assists with Activities of Daily Living: Lesli Instrumental Activities of Daily Living Prescription Coverage: Yes Pharmacy Used: [facility] Medication Management: Independent Transportation/Shopping: Independent Transportation Mode: Car (pt doesn't drive) Needs Assistance with Transportation at Discharge: No Meal Preparation: Independent Laundry/Cleaning: Independent Finances/Bill Paying: Independent Communication: Independent Types of Care Services/Equipment Utilized Care Services: Dialysis Type: Durable Medical Equipment: Walker, Oxygen (Continuous or prn) Oxygen Flow Rate: 2L DME Provider: pt unsure Patient's Goal/Discharge Plan Patient expects to be discharged to: home Discharge Planning Actions: Continue to follow Patient's Choice Rights and [employer] and Collaborative Relationships Disclosed as Indicated for Post-Acute Care: Interdisciplinary Team Engagement: PT/OT, Palliative Care, Geriatric Assessment Social Work Referral for: Additional Information: Pt admitted s/p fall SDH L 3-7 rib fxs. L wrist fx, R knee hta. Introduced myself and role. Pt lives with son and has a good support system. PT/OT is pending. Plan for rib block today. Normal [facility] BASIC METABOLIC PANELon 09-0 Anion gap [Moles/Vol] 5 mmol/L Normal 3-13 [facility] Comment on above: Performed By: #### L AB15 ####Food Service Worker Hospital: [facility] ([id number])[facility])[address] [place] [address] Calcium [Mass/Vol] 8.5 mg/dL Low 8.8-10.0 [facility] Comment on above: Performed By: #### L AB15 ####Food Service Worker Hospital: ANGELICA LUZ ([id number])[facility] ([facility])[address] [place] [address] [place] Chloride [Moles/Vol] 107 mmol/L Normal 98-107 [facility] Comment on above: Performed By: #### L AB15 ####Food Service Worker Hospital: [facility] ([id number])[facility])[address] [place] [address] [place] CO2 [Moles/Vol] 25 mmol/L Normal 23-31 [facility] Comment on above: Performed By: #### L AB15 ####Food Service Worker Hospital: ANGELICA [id number])[facility] ([facility] Creatinine [Mass/Vol] 0.44 mg/dL Low 0.57-1.11 [facility] Comment on above: Performed By: #### L AB15 ####Food Service Worker Hospital: [facility]ELICA LUZ ([id number])[facility])[address] [place] [address] GLOMERULAR FILTRATION RATE ML/MIN/1.73 SQ M.PREDICTED >90.0 Normal >60.0 [facility] Comment on above: Result Comment: Calc ulation based on the Chronic Kidney Disease Epidemiology Collaboration (CKD-EPI) equation refit without adjustment for race Performed By: #### L AB15 ####Food Service Worker Hospital: [facility] ([id number])[address] Glucose [Mass/Vol] 101 mg/dL Normal 82-115 [facility] Comment on above: Performed By: #### L AB15 ####Food Service Worker Hospital: [facility]Z ([id number])[address] Potassium [Moles/Vol] 3.9 mmol/L Normal 3.5-5.1 [facility] Comment on above: Result Comment: [facility] potassium values may be up to 0.5 mmol/L lower than serum values. Performed By: #### L AB15 ####Food Service Worker Hospital: ANGELICA LUZ ([phone])[facility])[address] [place] [address] Sodium [Moles/Vol] 137 mmol/L Normal 136-145 [facility] Comment on above: Performed By: #### L AB15 ####Food Service Worker Hospital: [facility]GELICA LUZ ([id number])[address] Urea nitrogen [Mass/Vol] 16 mg/dL Normal 9-23 [facility] Comment on above: Performed By: #### L AB15 ####Food Service Worker Hospital: ANGELICA [id number])[place] [address] [facility] Basic metabolic 1998 panelon 04-23-2025 Anion gap [Moles/Vol] 5 mmol/L 3 - 13 mmol/L [facility] Calcium [Mass/Vol] 8.5 mg/dL Low 8.8 - 10. 0 mg/dL [facility] Chloride [Moles/Vol] 107 mmol/L 98 - 10 7 mmol/L [facility] CO2 [Moles/Vol] 25 mmol/L 23 - 31 mmol/L [facility] Creatinine [Mass/Vol] 0.44 mg/dL Low 0.57 - 1.11 mg/dL [facility] GFR/1.73 sq M.predicted (S/P/Bld) [Vol rate/Area] - PINF [facility] Comment on above: Calculation based on the Chronic Kidney Disease Epidemiology Collaboration (CKD-EPI) equation refit without adjustment for race Glucose [Mass/Vol] 101 mg/dL 82 - 115 mg/dL [facility] Interpretation and review of laboratory results Abnormal [facility] Potassium [Moles/Vol] 3.9 mmol/L 3.5 - 5.1 mmol/L [facility] Comment on above: Plasma potassium jose ues may be up to 0.5 mmol/L lower than serum values. Sodium [Moles/Vol] 137 mmol/L 136 - 145 mmol/L [facility] Urea nitrogen [Mass/Vol] 16 mg/dL 9 - 23 mg/dL [facility] CBC W Auto Differential pane l (Bld)Ordered By: Johnny Marshall on 04-23-2025 Basophils (Bld) [#/Vol] 0.1 10*3/uL 0.0 - 0.2 10*3/uL [facility] Basophils/100 WBC (Bld) 0.5 % 0.0 - 2.0 % [facility] Eosinophils (Bld) [#/Vol] 0 10*3/uL 0.0 - 0.5 10*3/uL [facility] Eosinophils/100 WBC (Bld) 0.1 % 0.0 - 6.0 % [facility] Erythrocyte distribution width (RBC) [Ratio] 13.9 % 11.5 - 15.0 % [facility] Hematocrit (Bld) [Volume fraction] 42.4 % 35.0 - 47.0 % [facility] Hemoglobin (Bld) [Mass/Vol] 13.6 g/dL 11.7 - 16.0 g/dL [facility] Immature granulocytes (Bld) [#/Vol] 0.1 10*3/uL High NINF - 0.1 10*3/uL [facility] Immature granulocytes/100 WBC (Bld) 0.6 % 0.0 - 2.0 % [facility] Interpretation and review of laboratory results Abnormal [facility] Lymphocytes (Bld) [#/Vol] 1 10*3/uL 1.0 - 4.3 10*3/uL [facility] Lymphocytes/100 WBC (Bld) 9.6 % Low 15.0 - 45.0 % [facility] MCH (RBC) [Entitic mass] 33.2 pg 26.0 - 34.0 pg [facility] MCHC (RBC) [Mass/Vol] 32.1 % 30.5 - 36.0 % [facility] MCV (RBC) [Entitic vol] 103.4 fL High 77.0 - 99.0 fL [facility] Monocytes (Bld) [#/Vol] 0.6 10*3/uL 0.0 - 0.9 10*3/uL [facility] Monocytes/100 WBC (Bld) 6.3 % 5.0 - 13.0 % [facility] Neutrophils (Bld) [#/Vol] 8.3 10*3/uL High 1.8 - 7.5 10*3/uL [facility] Neutrophils/100 WBC (Bld) 82.9 % High 38.0 - 82.0 % [facility] Nucleated RBC/100 WBC (Bld) [Ratio] 0 % [facility] Platelet mean volume (Bld) [Entitic vol] 10.2 fL 9.0 - 12.7 fL [facility] Platelets (Bld) [#/Vol] 166 10*3/uL 140 - 440 10*3/uL [facility] RBC (Bld) [#/Vol] 4.1 10*6/uL 3.80 - 5.20 10*6/uL [facility] WBC (Bld) [#/Vol] 10.1 10*3/uL 3.6 - 10.7 10*3/uL [facility] CBC WITH AUTO DIFFERENTIALon 04-23-2025 Basophils (Bld) [#/Vol] 0.1 10*3/uL Normal 0.0-0.2 [facility] Comment on above: Performed By: #### L [id number] ####[facility]: ANGELICA LUZ ([id number])[facility])[address] [place] [address] Basophils/100 WBC (Bld) 0.5 % Normal 0.0-2.0 [facility] Comment on above: Performed By: #### L [id number] ####[facility]: ANGELICA LUZ ([id number])[facility])[address] [place] [address] Eosinophils (Bld) [#/Vol] 0.0 10*3/uL Normal 0.0-0.5 [facility] Comment on above: Performed By: #### L [id number] ####[facility]: ANGELICA LUZ ([id number])[address] Eosinophils/100 WBC (Bld) 0.1 % Normal 0.0-6.0 [facility] Comment on above: Performed By: #### L [id number] ####[facility]: ANGELICA LUZ ([id number])[address] Erythrocyte distribution width (RBC) [Ratio] 13.9 % Normal 11.5-15.0 [facility] Comment on above: Performed By: #### L [id number] ####[facility]: ANGELICA LUZ ([id number])[facility])[address] [place] [address] Hematocrit (Bld) [Volume fraction] 42.4 % Normal 35.0-47.0 [facility] Comment on above: Performed By: #### L [id number] ####[facility]: ANGELICA LUZ ([id number])[address] Hemoglobin (Bld) [Mass/Vol] 13.6 g/dL Normal 11.7-16.0 [facility] Comment on above: Performed By: #### L [id number] ####[facility]: ANGELICA LUZ ([id number])[facility])[address] [place] [address] IMMATURE GRANS % 0.6 % Normal 0.0-2.0 [facility] Comment on above: Performed By: #### L [id number] ####[facility]: ANGELICA LUZ ([id number])[facility])[address] [place] [address] IMMATURE GRANS ABSOLUTE 0.1 10*3/uL High <0.1 [facility] Comment on above: Performed By: #### L [id number] ####[facility]: ANGELICA LUZ ([id number])[facility])[address] [place] [address] Lymphocytes (Bld) [#/Vol] 1.0 10*3/uL Normal 1.0-4.3 [facility] Comment on above: Performed By: #### L [id number] ####[facility]: ANGELICA LUZ ([id number])[facility])[address] [place] [address] Lymphocytes/100 WBC (Bld) 9.6 % Low 15.0-45.0 [facility] Comment on above: Performed By: #### L [id number] ####[facility]: ANGELICA LUZ ([id number])[facility])[address] [place] [address] MCH (RBC) [Entitic mass] 33.2 pg Normal 26.0-34.0 [facility] Comment on above: Performed By: #### L [id number] ####[facility]: ANGELICA LUZ ([id number])[facility])[address] [place] [address] MCHC 32.1 % Normal 30.5-36.0 [facility] Comment on above: Performed By: #### L [id number] ####[facility]: ANGELICA LUZ ([id number])[facility])[address] [place] [address] MCV (RBC) [Entitic vol] 103.4 fL High 77.0-99.0 [facility] Comment on above: Performed By: #### L [id number] ####[facility]: ANGELICA LUZ ([id number])[facility])[address] [place] [address] Monocytes (Bld) [#/Vol] 0.6 10*3/uL Normal 0.0-0.9 [facility] Comment on above: Performed By: #### L [id number] ####[facility]: ANGELICA LUZ ([id number])[facility])[address] [place] [address] Monocytes/100 WBC (Bld) 6.3 % Normal 5.0-13.0 [facility] Comment on above: Performed By: #### L [id number] ####[facility]: ANGELICA LUZ ([id number])[facility] ([facility])[address] [place] [address] NEUTROPHILS ABSOLUTE 8.3 10*3/uL High 1.8-7.5 [facility] Comment on above: Performed By: #### L [id number] ####[facility]: ANGELICA LUZ ([id number])[facility] ([facility])[address] [place] [address] Neutrophils/100 WBC (Bld) 82.9 % High 38.0-82.0 [facility] Comment on above: Performed By: #### L [id number] ####[facility]: ANGELICA LUZ ([id number])[facility] ([facility])[address] [place] [address] NRBC 0.0 /100 WBCs Normal 0.0-2.0 [facility] Comment on above: Performed By: #### L [id number] ####[facility]: ANGELICA LUZ ([id number])[facility] ([facility])[address] [place] [address] Platelet mean volume (Bld) [Entitic vol] 10.2 fL Normal 9.0-12.7 [facility] Comment on above: Performed By: #### L [id number] ####[facility]: ANGELICA LUZ ([id number])[facility])[address] [place] [address] Platelets (Bld) [#/Vol] 166 10*3/uL Normal 140-440 [facility] Comment on above: Performed By: #### L [id number] ####[facility]: ANGELICA LUZ ([id number])[facility] ([facility])[address] [place] [address] RBC (Bld) [#/Vol] 4.10 10*6/uL Normal 3.80-5.20 [facility] Comment on above: Performed By: #### L [id number] ####[facility]: ANGELICA LUZ ([id number])[facility])[address] [place] [address] WBC (Bld) [#/Vol] 10.1 10*3/uL Normal 3.6-10.7 [facility] Comment on above: Performed By: #### L [id number] ####[facility]: ANGELICA LUZ ([id number])[facility])[address] [place] [address] CT HEAD WO IV CONTRASTon CT HEAD WO IV CONTRAST Patient Name: LESLI STEINBERG : 1940 Exam Date/Time: 04/23/2025 05:40 Procedure: CT HEAD WO IV CONTRAST Ordering Provider: GONZALEZ KATIE Reason For Exam: Follow up intracranial hematoma EXAM: CT Head Without Intravenous Contrast CLINICAL INDICATION: Follow up intracranial hematoma. Fall. Subdural hematoma on outside CT. TECHNIQUE: Axial computed tomography images of the head/brain without intravenous contrast. This CT exam was performed using one or more of the following dose reduction techniques: automated exposure control, adjustment of the mA and/or kV according to patient size, and/or use of iterative reconstruction technique. COMPARISON: Head CT from 02/09/2022 FINDINGS: BRAIN AND EXTRA-AXIAL SPACES: Hyperdense subdural hemorrhage along the midline falx, measuring up to 5 mm in thickness. Chronic small vessel ischemic changes in the bilateral periventricular white matter. Mild diffuse cortical volume loss. Small remote lacunar infarcts in the bilateral basal ganglia. No acute intraparenchymal hemorrhage. No midline shift. BONES/JOINTS: Degenerative remodeling of the temporomandibular joints. No acute fracture. SOFT TISSUES: Right frontal scalp hematoma. SINUSES: Opacified posterior right ethmoid air cell. MASTOID AIR CELLS: Unremarkable as visualized. No mastoid effusion. IMPRESSION: 1. Acute mild subdural hemorrhage along the midline falx. 2. Diffuse cortical volume loss and chronic small vessel ischemic changes. Report Dictated on Electronically Signed By: Janny Duarte MD Electronically Signed Date/Time: 04/23/2025 8:06 AM EDT [facility] CT Head WO contraston 2024 1. Acute mild subdur al hemorrhage along the midline falx. 2. Diffuse cortical volume loss and chronic small vessel ischemic changes. Report Dictated on Electronically Signed By: Janny Duarte MD Electronically Signed Date/Time: 04/23/2025 8:06 AM EDT [facility] Patient Name[facility]DEZ [facility] 1940 [id number] Exam Date/Time: 04/23/2025 05:40 Procedure: CT HEAD WO IV CONTRAST Ordering Provider: GONZALEZ KATIE Reason For Exam: Follow up intracranial hematoma EXAM: CT Head Without Intravenous Contrast CLINICAL INDICATION: Follow up intracranial hematoma. Fall. Subdural hematoma on outside CT. TECHNIQUE: Axial computed tomography images of the head/brain without intravenous contrast. This CT exam was performed using one or more of the following dose reduction techniques: automated exposure control, adjustment of the mA and/or kV according to patient size, and/or use of iterative reconstruction technique. COMPARISON: Head CT from 02/09/2022 FINDINGS: BRAIN AND EXTRA-AXIAL SPACES: Hyperdense subdural hemorrhage along the midline falx, measuring up to 5 mm in thickness. Chronic small vessel ischemic changes in the bilateral periventricular white matter. Mild diffuse cortical volume loss. Small remote lacunar infarcts in the bilateral basal ganglia. No acute intraparenchymal hemorrhage. No midline shift. BONES/JOINTS: Degenerative remodeling of the temporomandibular joints. No acute fracture. SOFT TISSUES: Right frontal scalp hematoma. SINUSES: Opacified posterior right ethmoid air cell. MASTOID AIR CELLS: Unremarkable as visualized. No mastoid effusion. [facility] Janny Duarte M D - 04/23/2025 Patient Name: LESLI ROSALES : 1940 Exam Date/Time: 04/23/2025 05:40 Procedure: CT HEAD WO IV CONTRAST Ordering Provider: GONZALEZ KATIE Reason For Exam: Follow up intracranial hematoma EXAM: CT Head Without Intravenous Contrast CLINICAL INDICATION: Follow up intracranial hematoma. Fall. Subdural hematoma on outside CT. TECHNIQUE: Axial computed tomography images of the head/brain without intravenous contrast. This CT exam was performed using one or more of the following dose reduction techniques: automated exposure control, adjustment of the mA and/or kV according to patient size, and/or use of iterative reconstruction technique. COMPARISON: Head CT from 02/09/2022 FINDINGS: BRAIN AND EXTRA-AXIAL SPACES: Hyperdense subdural hemorrhage along the midline falx, measuring up to 5 mm in thickness. Chronic small vessel ischemic changes in the bilateral periventricular white matter. Mild diffuse cortical volume loss. Small remote lacunar infarcts in the bilateral basal ganglia. No acute intraparenchymal hemorrhage. No midline shift. BONES/JOINTS: Degenerative remodeling of the temporomandibular joints. No acute fracture. SOFT TISSUES: Right frontal scalp hematoma. SINUSES: Opacified posterior right ethmoid air cell. MASTOID AIR CELLS: Unremarkable as visualized. No mastoid effusion. IMPRESSION: 1. Acute mild subdural hemorrhage along the midline falx. 2. Diffuse cortical volume loss and chronic small vessel ischemic changes. Report Dictated on Electronically Signed By: Janny Duarte MD Electronically Signed Date/Time: 04/23/2025 8:06 AM EDT [facility] Radiology Study observation (narrative) [facility] CT Head WO contrastOrdered B y: Janny Duarte on 04-23-2025 [facility] Work Phone: Consulton 04-23-2025 Consult [facility] Geriatric Medicine Inpatient Consult Service Admission Date: 04/22/2025 Admission Status: INPATIENT Chief Complaint: fall Reason for Appointment Geriatrics consulted for Trauma due to fall Assessment & Plan Principal Problem: Acute subdural hematoma (HCC) Active Problems: Fall Closed fracture of multiple ribs of left side with routine healing Closed fracture of left wrist Hematoma Fall with SDH, rib fractures -Multiple risk factors including chronic pain, COPD, deconditioning, decreased hearing -Continue PT/OT as able while inpatient -Vitamin D previously WNL (January 2025) -Check orthostatic vital signs as able -Medications with associated fall risk include: Atenolol - monitor for bradycardia/hypotension Balcofen - takes at HS only, recommend decreasing to HS only here Furosemide - monitor for orthostasis/dehydration Percocet - long-standing med, dose likely reasonable No longer taking gabapentin, amitriptyline at home Acute pain due to trauma Chronic back pain --Recommend scheduled acetaminophen 1g TID with PRN oxycodone (5-10mg, not opioid naive) PRN for breakthrough Lab Results Component Value Date ALT 9 01/23/2025 AST 19 01/23/2025 ALKPHOS 107 01/23/2025 BILITOT 1.2 01/23/2025 -Optimize nonpharmacologic pain treatment modalities. -continue scheduled bowel regimen while on narcotics - recommend continuing on discharge -As above, baclofen only at HS at home, decreased to HS only here. -Butrans 5mcg at baseline, no longer has patch on. Will reorder. -Was no longer taking gabapentin at home, restarted here at 100mg TID, monitor tolerance and consider decreasing if ongoing complaints of dizziness. At risk for delirium --Risk factors: head trauma/head bleed, pain, advanced age, possible medication effect --Encourage PO intake, time up in chair, family visits, supervised ambulation, and sleep hygiene --If agitated, assess for and consider treating for pain --QTc= 467 --No antipsychotic unless patient is danger to self/others/treatment --Start PRN melatonin at HS --Monitor for constipation/urinary retention - last BM 04/21 --Possible medication contributions: narcotics Declining functional status --Related to acute injuries, chronic pain --Continue PT/OT as able while inpatient --Anticipate d/c to TBD - at risk for needing daily therapies at discharge. Subjective: HPI 85 y.o. year-old female presented from home for fall. Dx'd with multiple rib fractures, small subdural hematoma (stable to improved on repeat testing), L wrist fracture, R knee hematoma. Conversation with patient: # of falls in the past 3 months: 1 # of falls in the past year: 1 total History of falls: this is her only fall in the recent past. Had a fall 3.5 years ago where she broke her R arm. Got up to go from one bedroom to another bedroom to get some clothes "and I got woozy and I don't know what happened". Living situation: lives at home with son Assistive device: uses a walker, BSC due to urinary urgency Dizziness: long-standing, gets lightheaded when she stands up, has to sit on the edge of the bed awhile before she starts moving. Pain: acute pain in L wrist and ribs. Chronic back in back and hips Incontinence/urgency (bowel, bladder, nocturia): +urinary urgency at home. Chronic constipation Sleep (including use of medications/OTC for sleep): generally sleeps well Alcohol/drugs: denies any significant issues Mood: reports long-standing issues with depression Memory: reports mild difficulty with short-term memory Numbness: denies any significant issues Vision: sees well, glasses for close up Hearing: admits hearing has been getting worse DM: n/a Exercise/therapy: was active with home PT prior to fall/admission Weight/appetite: denies any significant issues Meds: takes directly from the bottles. Admits that she can't remember at times if she's already taken her medications or not so she'll skip them. Conversation with caregiver: granddaughter, Anna, at bedside. Corroborates patient's history. Advance Care Planning Healthcare Power of Carpet Or Rug Layer Helper: Yes, son Hardik and granddaughter Anna. Financial Power of Carpet Or Rug Layer Helper: No Living Will:No Code Status: Full Code Allergies[1] Current Medications[2] Medical History[3] Surgical History[4] Social History Tobacco Use Smoking status: Former Current packs/day: 0.00 Average packs/day: 1 pack/day for 17.0 years (17.0 ttl pk-yrs) Types: Cigarettes Start date: 05/29/1959 Quit date: 05/29/1976 Years since quittin.9 Smokeless tobacco: Never Substance Use Topics Alcohol use: No Social History Social History Narrative Not on file Family History Family History[5] Family Status Relation Name Status Mother No partnership data on file Parents are as above Review of Systems Constitutional: Negative for appetite change. HENT: Positive (more content not included)... Normal [facility] Consult Palliative Care Init ial Consult Chief Complaint: Lesli Rosales is a 85 y.o. female with chief complaint of fall. Palliative Care is signing off, please re-consult if needed. (add SIGNOFFTRANSITION dotphrase below) Assessment/Plan Goals of care Lesli Rosales retains capacity for medical decision-making -legal surrogate decision maker is son, Hardik Rosales ( ) -see subjective for details of conversation -goals of care include: 1) get better and go home, 2) continue current medical management Acute Traumatic Left Frontal and Anterior Hemispheric Subdural Hematoma Acute Traumatic Left 3 thru 7 Rib Fractures Non-displaced Fracture of the Left Scaphoid Wrist Right Knee Hematoma - patient fell the afternoon of 04/22 striking her right knee and left chest, no loss of consciousness. - CT head 04/23 reveals an acute mild subdural hemorrhage along the midline falx - Repeat CT pending - XR Hand reveals - Orthopedics consulted; no surgical intervention. Patient provided a sling and a brace for her LUE. - mgmt per primary Acute Pain - 2/2 above - Patient denies pain this morning. Rates as a 0/10 while at rest but notes pain with activity that is controlled with current medications. - Agree with scheduled acetaminophen 1000 mg PO q8h - Agree with Oxycodone 5 mg PO q4h PRN - Agree with hydromorphoe 0.25 mg q4h PRN Chronic Pain - Patient follows with Pain Management in [place]; patient is attempting to reschedule her next appointment with them that was originally planned for tomorrow. - Patient reports no longer taking home amitriptyline - Uses home buprenorphine patch 5 mcg/hr weekly - Uses home baclofen 10 mg PO TID, - Uses home oxycodone-acetaminophen 5-325 mg 1 tablet PO q6h PRN Palliative Care Encounter -Code Status: Full Code - Palliative Care to sign off. Please re-consult with any acute Palliative Care needs. Discharge planning: Not ready for discharge due to ongoing medical work-up/critical illness Patient meets criteria for general inpatient hospice care: No Palliative Care IDT members involved: None Discussed the plan of care with the other interdisciplinary team (IDT) members of the Palliative Care and Hospice teams and Patient and Primary Attending. Subjective: Subjective/Events Lesli Rosales is a 85 y.o. female with past medical history of arthritis, atrial fibrillation, COPD, chronic pain, CHF, GERD, HTN, osteoarthritis, and psoriasis who presented to [facility] on 04/23/25 as a direct admit from [place] [facility]. Patient was folding laundry during the afternoon of 04/22 when she fell striking her right knee and left chest, prompting her admission to [place]. Patient is unsure of what caused her fall but does note being dizzy and having a headache throughout the day preceding her fall. Patient denies loss of consciousness. Patient is on Xarelto for her atrial fibrillation. Imaging at [place] reveals a 6mm subdural hematoma. Patient was given PCC prior to being transferred to [facility] S[facility]. Neurosurgery has been consulted; no surgical indication. Palliative Care has been consulted for goals of care. Upon assessment today, patient is resting comfortably in her hospital bed eating her breakfast. Patient is alert and oriented x 3. Patient's lung sounds are clear and even on 2 L nasal cannula. Patient is not in acute distress. Patient denies pain. Denies chest pain, lightheadedness, and/or dizziness. Patient endorses a good appetite. Denies nausea, vomiting, diarrhea, and/or constipation. Goals of Care: Introduced self and role of Palliative Care. Provided medical updates and answered all questions. Patient has clearly established goals. She is OK with CPR and/or mechanical ventilation in the event of a medical emergency such as cardiopulmonary arrest. Patient to remain a full code. Patient has HCPOA established, naming her son Hardik as her primary healthcare agent and her granddaughter Anna as her secondary agent. I requested a copy of this document. Patient's goal is to get better and return to home; patient lives with her son Hardik. Patient follows with Pain Management in [place]. Palliative Care will sign off. Pain Assessment No pain - patient rates current pain as a 0/10 at rest. Chronic and acute pain increases with activity but is well controlled with her current medications. Palliative Care Assessments: Goals of care: Continue Current Management, Cure, utilize all available medical therapies necessary, Live Longer, extend life as much as possible, and Improve or Maintain Function/Quality of Life Advanced Directives: Health Care Power of Carpet Or Rug Layer Helper - copy requested Functional Assessment: PPS 60% amb reduced; can't do normal housework/sig disease; occ assistance; normal or reduced intake; full LOC or confusion Prognosis: uncertain at this time Spiritual Assessment: No spiritual distress identified Be (more content not included)... Normal [facility] Consult NEUROSURGERY and [facility] NE CONSULT NOTE Patient Name: Lesli Rosales Patient : 1940 PCP: Marty Guthrie MD Chief Complaint: fall on OAC History of Present Illness: 85 y.o. female with a PMHX as listed below arrives from OSH with SDH s/p fall on Xeralto . She remembers folding laundry in her living room then falling from standing height. CT head showed a right frontal SDH. She is neurologically intact. Complains of shoulder pain. Xeralto reversed with PCC. Past Medical History: Medical History[1] Past Surgical History: Surgical History[2] Home Medications: Prior to Admission medications Medication Sig Start Date End Date Taking? Authorizing Provider albuterol 108 (90 Base) MCG/ACT inhaler USE 2 INHALATIONS BY MOUTH 4 TIMES DAILY IF NEEDED 10/02/23 Yes Loan Madrigal PA-C atenolol (Tenormin) 25 MG tablet 05/25/22 Yes Historical Provider, baclofen (Lioresal) 10 MG tablet Take 5 mg by mouth 3 times daily. Yes Historical Provider, buprenorphine (Butrans) 5 MCG/HR Place 1 patch on the skin 1 (one) time per week. Yes Historical Provider, empagliflozin (Jardiance) 10 MG Take 10 mg by mouth daily. Yes Historical Provider, famotidine (Pepcid) 20 MG tablet Take 20 mg by mouth in the morning. 05/02/17 Yes Historical Provider, ipratropium (Atrovent) 0.02 % nebulizer solution Take 2.5 mL (0.5 mg) by nebulization every 6 hours as needed for wheezing or shortness of breath. 08/05/22 Yes Loan Madrigal PA-C oxyCODONE-acetaminophen (Percocet) 5-325 MG tablet Take 1 tablet by mouth every 6 hours as needed for severe pain (7-10). Yes Historical Provider, rivaroxaban (Xarelto) 20 MG tablet Take 20 mg by mouth with evening meal. Take with food. Yes Historical Provider, budesonide-formoterol (Symbicort) 160-4.5 MCG/ACT inhaler Inhale 2 puffs in the morning and 2 puffs in the evening. Rinse mouth with water after use to reduce aftertaste and incidence of candidiasis. Do not swallow.. 08/05/22 01/23/25 Loan Madrigal PA-C budesonide-formoterol (Symbicort) 80-4.5 MCG/ACT inhaler Inhale 2 puffs 2 times daily. Patient not taking: Reported on 04/23/2025 Historical Provider, cholecalciferol (Vitamin D-3) 50 MCG (2000 UT) capsule Take 2,000 Units by mouth daily. Patient not taking: Reported on 04/23/2025 Historical Provider, insulin pen needle (Embrace Pen [place]) 31G X 8 MM misc Use as instructed Patient not taking: Reported on 04/23/2025 04/03/25 LAVELLE Andrews CNP levalbuterol (Xopenex) 0.63 MG/3ML nebulizer solution Take 1 ampule by nebulization as needed for wheezing or shortness of breath. 08/05/22 01/23/25 Loan Madrigal PA-C Risankizumab-rzaa (SKYRIZI SC) Inject under the skin. Historical Provider, teriparatide (Forteo) injection Inject 0.08 mL (20 mcg) under the skin daily. Patient not taking: Reported on 04/23/2025 04/03/25 LAVELLE Andrews CNP tiotropium (Spiriva) [address] 1 capsule (18 mcg) into inhaler and inhale in the morning. 08/05/22 01/23/25 Loan Madrigal PA-C Allergies: Patient has no known allergies. Social History: TOBACCO: reports that she quit smoking about 48 years ago. Her smoking use included cigarettes. She started smoking about 65 years ago. She has a 17 pack-year smoking history. She has never used smokeless tobacco. ETOH: reports no history of alcohol use. RECREATIONAL DRUG USE: Social History Substance and Sexual Activity Drug Use No Family History: Family History[3] ROS: Shoulder pain Denies MCHUGH Physical Examination: Vitals: 04/23/25 0700 BP: 108/58 Pulse: 80 Resp: 17 Temp: SpO2: 99% Physical Exam Facial bruising NEURO: A&O x3 IGNACIO Left arm in brace No focal deficits noted Results Labs: Last 24hrs Recent Results (from the past 24 hours) Hemoglobin A1c Collection Time: 04/23/25 3:45 AM Result Value Ref Range HEMOGLOBIN A1C 5.2 <5.7 %HbA1C ESTIMATED AVERAGE GLUCOSE 103 mg/dL CBC auto differential Collection Time: 04/23/25 3:45 AM Result Value Ref Range Auto WBC 10.1 3.6 - 10.7 10*3/uL RBC 4.10 3.80 - 5.20 10*6/uL Hemoglobin 13.6 11.7 - 16.0 g/dL Hematocrit 42.4 35.0 - 47.0 % MCV 103.4 (H) 77.0 - 99.0 fL MCH 33.2 26.0 - 34.0 pg MCHC 32.1 30.5 - 36.0 % RDW 13.9 11.5 - 15.0 % Platelets 166 140 - 440 10*3/uL MPV 10.2 9.0 - 12.7 fL nRBC 0.0 0.0 - 2.0 /100 WBCs Neutrophils Relative 82.9 (H) 38.0 - 82.0 % Lymphocytes Relative 9.6 (L) 15.0 - 45.0 % Monocytes Relative 6.3 5.0 - 13.0 % Eosinophils Relative 0.1 0.0 - 6.0 % Basophils Relative 0.5 0.0 - 2.0 % Immature Grans % 0.6 0.0 - 2.0 % Neutrophils Absolute 8.3 (H) 1.8 - 7.5 10*3/uL Lymphocytes Absolute 1.0 1.0 - 4.3 10*3/uL Monocytes Absolute 0.6 0.0 - 0.9 10*3/uL Eosinophils Absolute 0.0 0.0 - 0.5 10*3/uL Basophils Absolute 0.1 0.0 - 0.2 10*3/uL Immature Grans Absolute 0.1 (H) <0.1 10*3 (more content not included)... Normal [facility] Consult Ortho Consult Patient: Lesli Rosales Date of : 1940 Acct: [id number] PCP: Marty Guthrie MD Date of Admission: 04/22/2025 Date of Service: Pt seen/examined on 04/24/2025 Chief Complaint: Left shoulder pain, mechanical fall History Of Present Illness: This is a 85 y.o. female presenting with left shoulder pain after a fall from standing earlier today. She is unsure of the mechanism for the fall but believes it was likely mechanical. She initially presented to the [facility] where initial workup was significant for a subdural hematoma, a left scaphoid fracture, and left 3rd-7th rib fractures. She was placed into a left removable thumb spica brace and was transferred to [facility] for further management. Of note, she does take Xarelto and states her right knee developed significant swelling following the fall but is not painful. On evaluation, she is endorsing left shoulder pain that she only experiences when she moves the left upper extremity. She denies pain at rest. She denies pain in the left hand. She denies numbness/tingling in the extremities. Prior remote orthopaedic surgery history of back surgery, a right proximal humerus ORIF, and a right thumb surgery done at an outside hospital. She denies tobacco, alcohol, or illicit drug use. Household ambulator at baseline. Patient ambulation status: walker at home, wheelchair for further distances Antiplatelets/Anticoagulat ion includes: Xarelto Hx from chart and/or Pt. Past Medical History: Medical History[1] Past Surgical History: Surgical History[2] Home Medications: Prior to Admission medications Medication Sig Start Date End Date Taking? Authorizing Provider albuterol 108 (90 Base) MCG/ACT inhaler USE 2 INHALATIONS BY MOUTH 4 TIMES DAILY IF NEEDED 10/02/23 Yes Loan Madrigal PA-C atenolol (Tenormin) 25 MG tablet 05/25/22 Yes Historical Provider, baclofen (Lioresal) 10 MG tablet Take 5 mg by mouth 3 times daily. Yes Historical Provider, buprenorphine (Butrans) 5 MCG/HR Place 1 patch on the skin 1 (one) time per week. Yes Historical Provider, empagliflozin (Jardiance) 10 MG Take 10 mg by mouth daily. Yes Historical Provider, famotidine (Pepcid) 20 MG tablet Take 20 mg by mouth in the morning. 05/02/17 Yes Historical Provider, ipratropium (Atrovent) 0.02 % nebulizer solution Take 2.5 mL (0.5 mg) by nebulization every 6 hours as needed for wheezing or shortness of breath. 08/05/22 Yes Loan Madrigal PA-C oxyCODONE-acetaminophen (Percocet) 5-325 MG tablet Take 1 tablet by mouth every 6 hours as needed for severe pain (7-10). Yes Historical Provider, rivaroxaban (Xarelto) 20 MG tablet Take 20 mg by mouth with evening meal. Take with food. Yes Historical Provider, budesonide-formoterol (Symbicort) 160-4.5 MCG/ACT inhaler Inhale 2 puffs in the morning and 2 puffs in the evening. Rinse mouth with water after use to reduce aftertaste and incidence of candidiasis. Do not swallow.. 08/05/22 01/23/25 Loan Madrigal PA-C budesonide-formoterol (Symbicort) 80-4.5 MCG/ACT inhaler Inhale 2 puffs 2 times daily. Patient not taking: Reported on 04/23/2025 Historical Provider, cholecalciferol (Vitamin D-3) 50 MCG (1999 UT) capsule Take 2,000 Units by mouth daily. Patient not taking: Reported on 04/23/2025 Historical ProviderMD insulin pen needle (Embrace Pen [place]) 31G X 8 MM misc Use as instructed Patient not taking: Reported on 04/23/2025 04/03/25 Felecia Mercado, SHUTTLE DRIVER - RN HEMODIALYSIS levalbuterol (Xopenex) 0.63 MG/3ML nebulizer solution Take 1 ampule by nebulization as needed for wheezing or shortness of breath. 08/05/22 01/23/25 Loan Madrigal PA-C Risankizumab-rzaa (SKYRIZI SC) Inject under the skin. Historical Provider, teriparatide (Forteo) injection Inject 0.08 mL (20 mcg) under the skin daily. Patient not taking: Reported on 04/23/2025 04/03/25 Felecia Mercado APRN - MARJ tiotropium (Spiriva) [address] 1 capsule (18 mcg) into inhaler and inhale in the morning. 08/05/22 01/23/25 Loan Madrigal PA-C Current Hospital Medications: Current Medications[3] Allergies: Patient has no known allergies. Social History: Social History Socioeconomic History Marital status: Spouse name: Not on file Number of children: Not on file Years of education: Not on file Highest education level: Not on file Occupational History Not on file Tobacco Use Smoking status: Former Current packs/day: 0.00 Average packs/day: 1 pack/day for 17.0 years (17.0 ttl pk-yrs) Types: Cigarettes Start date: 05/29/1959 Quit date: 05/29/1976 Years since quittin.9 Smokeless tobacco: Never Vaping Use Vaping status: Never Used Substance and Sexual Activity Alcohol use: No Drug use: No Sexual activity: Not on file Other Topics Concern Not on file Social History Narrative Not on file Social Dri (more content not included)... Normal [facility] ECG 12-LEADon 04-23-2025 ECG 12-LEAD IMPRESSION: Atrial fibrillation Borderline T abnormalities, diffuse leads Electronically Signed On 04-23-2025 22:16:34 EDT by Chloe Barrios Normal [facility] HEMOGLOBIN A1Con 04-23-2025 Glucose [Mass/Vol] 103 mg/dL Normal [facility] Comment on above: Result Comment: MENDOZA Soliz COMMENTS: If not done within the last 3 mos HbA1c values of 5.7-6.4 percent indicate an increased risk for developing diabetes mellitus. HbA1c values greater than or equal to 6.5 percent are diagnostic of diabetes mellitus. For diagnosis of diabetes in individuals without unequivocal hyperglycemia, results should be confirmed by repeat testing. Performed By: #### L AB90 ####Food Service Worker Hospital: ANGELICA LUZ ([id number])[facility])[address] [place] [address] HEMOGLOBIN A1C 5.2 %HbA1C Normal <5.7 [facility] [employer] [facility] Comment on above: Result Comment: Norm al less than 5.7% Prediabetes 5.7% to 6.4% Diabetes 6.5% or higher --HgbA1C levels may not be accurate in patients who have renal disease, received recent blood transfusions, are anemic, or who have dyshemoglobinemia. Performed By: #### L AB90 ####Food Service Worker Hospital: ANGELICA LUZ ([id number])[facility] ([facility])[address] [place] [address] Laboratory - Chemistry and C hemistry - challengeon 04-23-2025 Glucose [Mass/Vol] 141 mg/dL High 70 - 100 mg/dL [facility] [employer] Glucose [Mass/Vol] 72 mg/dL 70 - 100 mg/dL [facility] [employer] Glucose [Mass/Vol] 91 mg/dL 70 - 100 mg/dL [facility] [employer] Average glucose Estimated from glycated hemoglobin (Bld) [Mass/Vol] 103 mg/dL [facility] [employer] Laboratory - Hematology and Cell countson 04-23-2025 HbA1c (Bld) [Mass fraction] 5.2 % [facility] [employer] Comment on above: Normal less than 5.7 % Prediabetes 5.7% to 6.4% Diabetes 6.5% or higher --HgbA1C levels may not be accurate in patients who have renal disease, received recent blood transfusions, are anemic, or who have dyshemoglobinemia. No Panel InformationOrdered By: Chloe Barrios on 04-23-2025 P Strang 0 degrees [employer] Work Phone: IA Interval 0 ms [employer] Work Phone: [phone] QRS Strang 48 degrees [employer] Work Phone: [phone] QRSD Interval 71 ms [employer] Work Phone: [phone] QT Interval 439 ms [employer] [facility] Work Phone: QTC Interval 467 ms [facility] Work Phone: T Wave Strang -60 degrees [employer] Work Phone: [facility] Work Phone: No Panel Informationon 04-23 Atrial fibrillation Borderline T abnormalities, diffuse leads Electronically Signed On 04-23-2025 22:16:34 EDT by Chloe Barrios Chloe Wood MD - 04/23/2025 IMPRESSION: Atrial fibrillation Borderline T abnormalities, diffuse leads Electronically Signed On 04-23-2025 22:16:34 EDT by Chloe Barrios [facility] Interpretation and review of laboratory results Abnormal [facility] Performed by: [place] [id number] CLIA ID: [id number] [facility] Interpretation and review of laboratory results Normal [facility] Performed by: [place] [address] CLIA ID: [id number] [facility] HbA1c values of 5.7- 6.4 percent indicate an increased risk for developing diabetes mellitus. HbA1c values greater than or equal to 6.5 percent are diagnostic of diabetes mellitus. For diagnosis of diabetes in individuals without unequivocal hyperglycemia, results should be confirmed by repeat testing. [facility] Progress Noteon 04-23-2025 Progress Note I was notified by [facility] resident that the patient had arrived on T2 as a Direct Admit. I immediately came to T2 ICU to evaluate patient. I was at the bedside within 15 minutes of patient arrival. Please see H&P for further details. Normal [facility] US Heart TransthoracicOrdere d By: Damien Julio on 04-23-2025 Ao Root Index 1.75 cm/m2 [facility] Work Phone: Aortic Arch 2.7 cm [facility] [employer] Work Phone: Aortic Root 2.8 cm [facility] [employer] Work Phone: Aortic valve Mean systole pressure gradient by US.doppler derived full Bernoulli 13 mmHg [facility] Work Phone: Aortic valve Orifice area by US 2 cm2 [facility] Work Phone: [phone] Aortic valve Peak systolic flow by US.doppler 1.7 m/s [facility] Work Phone: Ascending Aorta 2.4 cm [facility] Work Phone: Ascending Aorta Index 1.5 cm/m2 [facility] Work Phone: [phone] AV Area by Peak Velocity 0.9 cm2 [facility] Work Phone: [phone] AV Area by VTI 0.9 cm2 [facility] Work Phone: [phone] AV Peak Gradient 24 mmHg [facility] Work Phone: [phone] AV Peak Velocity 2.5 m/s [facility] Work Phone: [phone] AV Velocity Ratio 0.44 [facility] Work Phone: [phone] AV VTI 53.9 cm [facility] Work Phone: [phone] SHIVAM/BSA Peak Velocity 0.6 cm2/m2 [facility] Work Phone: [phone] SHIVAM/BSA VTI 0.6 cm2/m2 [facility] Work Phone: [phone] Est. RA Pressure 8 mmHg [facility] alth Work Phone: [phone] Interpretation and review of laboratory results Abnormal [facility] Work Phone: [phone] IVC Diameter 2.4 cm [facility] Work Phone: [phone] LA Volume 2C 75 mL Abnormal 22 - 52 mL [facility] Work Phone: [phone] LA Volume 4C 96 mL Abnormal 22 - 52 mL [facility] Work Phone: [phone] LA Volume A/L 92 mL [facility] Work Phone: [phone] LA Volume BP 88 mL Abnormal 22 - 52 mL [facility] Work Phone: [phone] LA Volume Index 2C 47 mL/m2 Abnormal 16 - 34 mL/m2 [facility] Work Phone: [phone] LA Volume Index 4C 60 mL/m2 Abnormal 16 - 34 mL/m2 [facility] Work Phone: [phone] LA Volume Index A/L 58 mL/m2 16 - 34 mL/m2 [facility] Work Phone: LA Volume Index BP 55 ml/m2 Abnormal 16 - 34 ml/m2 [facility] Work Phone: LVOT Cardiac Output 3.8 liter/mi nu te [facility] Work Phone: LVOT Diameter 1.6 cm [facility] Work Phone: LVOT Mean Gradient 3 mmHg [facility] Work Phone: LVOT Peak Gradient 5 mmHg [facility] Work Phone: LVOT Peak Velocity 1.1 m/s [facility] Work Phone: [phone] LVOT Stroke Volume Index 30.6 mL/m2 [facility] Work Phone: [phone] LVOT SV 49 ml [facility] Work Phone: [phone] LVOT VTI 24.4 cm [facility] Work Phone: [phone] LVOT:AV VTI Index 0.45 [facility] Work Phone: [phone] RA Area 4C 46.9 mL [facility] Work Phone: [phone] RA Area 4C 45.3 mL [facility] Work Phone: RV Basal Dimension 3.9 cm [facility] Work Phone: [phone] RV Longitudinal Dimension 6.2 cm [facility] Work Phone: [phone] RV Mid Dimension 2.7 cm [facility] al[facility] Work Phone: RVSP 55 mmHg [facility] Work Phone: TAPSE 2 cm 1.7 cm [facility] Work Phone: TR Max Velocity 3.41 m/s [facility] Work Phone: TR Peak Gradient 47 mmHg [facility] al[facility] Work Phone: [phone] [facility] Work Phone: [phone] US Heart Transthoracicon Technically difficul t study. Left Ventricle: Left ventricle size is normal. Normal wall thickness. Normal left ventricular systolic function. The EF by visual approximation is 60%. Normal wall motion. Right Ventricle: Right ventricle size is normal. Normal systolic function. Aortic Valve: Mild stenosis of the aortic valve. AV mean gradient is 13 mmHg. AV area by continuity VTI is 0.9 cm2. Tricuspid Valve: RVSP is 55 mmHg. Left Atrium: Left atrium is severely dilated. Left Ventricle Left ventricle size is normal. Normal wall thickness. Normal left ventricular systolic function. The EF by visual approximation is 60%. Normal wall motion. Right Ventricle Right ventricle size is normal. Normal systolic function. Left Atrium Left atrium is severely dilated. Right Atrium Right atrium size is normal. IVC/SVC IVC diameter is normal and decreases less than 50% during inspiration; therefore the estimated right atrial pressure is intermediate (~8 mmHg). Mitral Valve Valve structure is normal. Annular calcification. Mild (1+) regurgitation. No stenosis noted. Tricuspid Valve Valve structure is normal. Mild (1+) regurgitation. RVSP is 55 mmHg. Aortic Valve Trileaflet. No cusp thickening. Mildly calcified cusps. No regurgitation. Mild stenosis of the aortic valve. AV mean gradient is 13 mmHg. AV area by continuity VTI is 0.9 cm2. Pulmonic Valve Valve structure is normal. Trace regurgitation. Ascending Aorta Normal sized sinuses of Valsalva and ascending aorta. Pericardium No pericardial effusion. Septum No interatrial shunt visualized on color Doppler. Study Details Image quality: technically difficult. Heart rate: 54 bpm. Blood pressure: 130/80 mmHg. Technical qualifiers: Technically difficult study with poor endocardial visualization, limited study due to patient's ability to tolerate test and procedure performed with the patient in a supine position. Ultrasound enhancement agent was given to enhance imaging. Echo Additional Conclusions Technically difficult study. Wall Scoring Baseline Score Index: 1.00 The left ventricular wall motion is normal. CV CPACS Vital signsOrdered By: Janice Barrios on 04-23-2025 Heart rate 68 /min bpm [employer] Work Phone: XR CHEST 1 VIEWon 04-23-2025 XR CHEST 1 VIEW Patient Name: LESLI HERNANDEZ MS : 1940 Exam Date/Time: 04/23/2025 07:39 Procedure: XR CHEST 1 VIEW Ordering Provider: GONZALEZ KATIE Reason For Exam: left rib fx EXAM: XR Chest, 1 View CLINICAL INDICATION: left rib fx TECHNIQUE: Frontal view of the chest. COMPARISON: Chest radiograph from 12/11/2020 FINDINGS: LUNGS AND PLEURAL SPACES: Calcified granuloma in the right mid lung. Extensive bilateral reticular pulmonary opacities. Right apical pleural thickening. No pneumothorax. HEART: Prominence of the cardiac silhouette, increased since prior. MEDIASTINUM: Unremarkable. Normal mediastinal contour. BONES/JOINTS: There appears to be an acute right second lateral rib fracture. Degenerative change of the spine. Reverse right shoulder arthroplasty. VASCULATURE: Mild calcification of the thoracic aorta. IMPRESSION: 1. Bilateral reticular pulmonary opacities, which may be due to interstitial edema, interstitial scarring, or atypical infection. 2. Acute appearing right second rib fracture. Right apical pleural thickening. 3. Prominence of the cardiac silhouette. Report Dictated on Electronically Signed By: Janny Duarte MD Electronically Signed Date/Time: 04/23/2025 11:22 AM EDT [facility] XR Chest Single viewon 04-23 1. Bilateral reticul ar pulmonary opacities, which may be due to interstitial edema, interstitial scarring, or atypical infection. 2. Acute appearing right second rib fracture. Right apical pleural thickening. 3. Prominence of the cardiac silhouette. Report Dictated on Electronically Signed By: Janny Duarte MD Electronically Signed Date/Time: 04/23/2025 11:22 AM T [facility] 1940 [id number] Exam Date/Time: 04/23/2025 07:39 Procedure: XR CHEST 1 VIEW Ordering Provider: GONZALEZ KATIE Reason For Exam: left rib fx EXAM: XR Chest, 1 View CLINICAL INDICATION: left rib fx TECHNIQUE: Frontal view of the chest. COMPARISON: Chest radiograph from 12/11/2020 FINDINGS: LUNGS AND PLEURAL SPACES: Calcified granuloma in the right mid lung. Extensive bilateral reticular pulmonary opacities. Right apical pleural thickening. No pneumothorax. HEART: Prominence of the cardiac silhouette, increased since prior. MEDIASTINUM: Unremarkable. Normal mediastinal contour. BONES/JOINTS: There appears to be an acute right second lateral rib fracture. Degenerative change of the spine. Reverse right shoulder arthroplasty. VASCULATURE: Mild calcification of the thoracic aorta. [facility] Janny Duarte M D - 04/23/2025 Patient Name: LESLI ROSALES : 1940 Exam Date/Time: 04/23/2025 07:39 Procedure: XR CHEST 1 VIEW Ordering Provider: GONZALEZ KATIE Reason For Exam: left rib fx EXAM: XR Chest, 1 View CLINICAL INDICATION: left rib fx TECHNIQUE: Frontal view of the chest. COMPARISON: Chest radiograph from 12/11/2020 FINDINGS: LUNGS AND PLEURAL SPACES: Calcified granuloma in the right mid lung. Extensive bilateral reticular pulmonary opacities. Right apical pleural thickening. No pneumothorax. HEART: Prominence of the cardiac silhouette, increased since prior. MEDIASTINUM: Unremarkable. Normal mediastinal contour. BONES/JOINTS: There appears to be an acute right second lateral rib fracture. Degenerative change of the spine. Reverse right shoulder arthroplasty. VASCULATURE: Mild calcification of the thoracic aorta. IMPRESSION: 1. Bilateral reticular pulmonary opacities, which may be due to interstitial edema, interstitial scarring, or atypical infection. 2. Acute appearing right second rib fracture. Right apical pleural thickening. 3. Prominence of the cardiac silhouette. Report Dictated on Electronically Signed By: Janny Duarte MD Electronically Signed Date/Time: 04/23/2025 11:22 AM EDT [facility] Radiology Study observation (narrative) [facility] XR HAND 1-2 VIEWS LEFTon XR HAND 1-2 VIEWS LEFT Patient Name: LESLI STEINBERG : 1940 Exam Date/Time: 04/23/2025 02:22 Procedure: XR HAND 1-2 VIEWS LEFT Ordering Provider: GONZALEZ KATIE Reason For Exam: trauma LEFT HAND: CLINICAL INDICATION: trauma. Injury with pain TECHNIQUE: PA, Lat COMPARISON: None. FINDINGS: Artifacts overlie the hand and wrist. There is no fracture or dislocation. Minimal spurring and narrowing is noted about the DIP and PIP joints along with the first carpometacarpal joint. No bone lesion is identified. There is no other soft tissue abnormality. IMPRESSION: No acute abnormality. Minimal degree of osteoarthritis. Report Dictated on Electronically Signed By: Harpreet Hood MD Electronically Signed Date/Time: 04/23/2025 3:16 AM EDT [facility] XR Hand - left 2 Viewson No acute abnormality . Minimal degree of osteoarthritis. Report Dictated on Electronically Signed By: Harpreet Hood MD Electronically Signed Date/Time: 04/23/2025 3:16 AM EDT [facility] Patient Name: LESLI HERNANDEZ MS : 1940 Exam Date/Time: 04/23/2025 02:22 Procedure: XR HAND 1-2 VIEWS LEFT Ordering Provider: GONZALEZ KATIE Reason For Exam: trauma LEFT HAND: CLINICAL INDICATION: trauma. Injury with pain TECHNIQUE: PA, Lat COMPARISON: None. FINDINGS: Artifacts overlie the hand and wrist. There is no fracture or dislocation. Minimal spurring and narrowing is noted about the DIP and PIP joints along with the first carpometacarpal joint. No bone lesion is identified. There is no other soft tissue abnormality. [facility] Harpreet Hood MD - 04/23/2025 Patient Name: LESLI ROSALES : 1940 Exam Date/Time: 04/23/2025 02:22 Procedure: XR HAND 1-2 VIEWS LEFT Ordering Provider: GONZALEZ KATIE Reason For Exam: trauma LEFT HAND: CLINICAL INDICATION: trauma. Injury with pain TECHNIQUE: PA, Lat COMPARISON: None. FINDINGS: Artifacts overlie the hand and wrist. There is no fracture or dislocation. Minimal spurring and narrowing is noted about the DIP and PIP joints along with the first carpometacarpal joint. No bone lesion is identified. There is no other soft tissue abnormality. IMPRESSION: No acute abnormality. Minimal degree of osteoarthritis. Report Dictated on Electronically Signed By: Harpreet Hood MD Electronically Signed Date/Time: 04/23/2025 3:16 AM EDT [employer] [facility] Radiology Study observation (narrative) [employer] XR Hand - left 2 ViewsOrdere d By: Harpreet Hood on 04-23-2025 [employer] Work Phone: 12 Lead EKGon 04-22-2025 12 Lead EKG Normal [facility] Absolute lymphocyte countOrd ered By: Brisa Gamble on 04-22-2025 Lymphocytes Auto (Unsp spec) [#/Vol] 1.39 10*3/uL 0.83-4.51 [facility] Absolute neutrophil countOrd ered By: Brisa Gamble on 04-22-2025 Neutrophils (Bld) [#/Vol] 8.0 10*3/uL High 2.0-7.7 [facility] Anion gap in Serum or Plasma Ordered By: Brisa Gamble on 04-22-2025 Anion gap [Moles/Vol] 8 mmol/L 5- [facility] Anion gap [Moles/Vol] 9 mmol/L 5- [facility] Automated lymphocyte count a s percentage of total leukocytesOrdered By: Brisa Gamble on 04-22-2025 Lymphocytes/100 WBC Auto (Unsp spec) 13.5 % Low 19-41 [facility] BUN/creatinine ratioOrdered By: Brisa Gamble on 04-22-2025 Urea nitrogen/Creatinine [Mass ratio] 37.5 mg/mg High 10-20 [facility] Urea nitrogen/Creatinine [Mass ratio] 37.1 mg/mg High 10-20 [facility] Basic Metabolic Profile (BMP )on 04-22-2025 BUN/CRE 37.5 RATIO High 06-09 [facility] Comment on above: Performed By: #### L 500.2500 ####[facility] [address] [place], [address] Calcium [Mass/Vol] 9.1 mg/dL Normal 7.6-11.0 [facility] Comment on above: Performed By: #### L 500.2500 ####[facility] [address] [place], [address] Chloride [Moles/Vol] 107 mmol/L Normal 98-108 [facility] Comment on above: Performed By: #### L 500.2500 ####[facility] [address] [place], [address] CO2 [Moles/Vol] 26.0 mmol/L Normal 21.0-32.0 [facility] Comment on above: Performed By: #### L 500.2500 ####[facility] [address] [place], [address] Creatinine [Mass/Vol] 0.48 mg/dL Low 0.70-1.20 [facility] Comment on above: Performed By: #### L 500.2500 ####[facility] [address] [place], [address] ECRCL 44.08 ml/min Low 50-250 [facility] Comment on above: Performed By: #### L 500.2500 ####[facility] [address] [place], [address] GAP 8 Normal 5-15 [facility] Comment on above: Performed By: #### L 500.2500 ####[facility] [address] [place], [address] GFR/1.73 sq M.predicted among non-blacks MDRD (S/P/Bld) [Vol rate/Area] 93 mL/min/{1.73_m2} Normal >60 [facility] Comment on above: Result Comment: mL/m in/1.73m2 CKD-EPI Creatinine Equation (2020) Performed By: #### L 500.2500 ####[facility] [address] [place], [address] Glucose [Mass/Vol] 97 mg/dL Normal 70-99 [facility] Comment on above: Performed By: #### L 500.2500 ####[facility] [address] [place], [address] Potassium [Moles/Vol] 3.8 mmol/L Normal 3.3-5.1 [facility] Comment on above: Result Comment: Hemo lysis present, Results??could be affected.?? Performed By: #### L 500.2500 ####[facility] [address] [place], [address] Sodium [Moles/Vol] 141 mmol/L Normal 133-145 [facility] Comment on above: Performed By: #### L 500.2500 ####[facility] [address] [place], [address] Urea nitrogen [Mass/Vol] 18 mg/dL Normal 4-19 [facility] Comment on above: Performed By: #### L 500.2500 ####[facility] [address] [place], [address] BUN/CRE 37.1 RATIO High 10-20 [facility] Comment on above: Performed By: #### L 500.2500, L100.0100 ####[facility] [address] [place], [address] Calcium [Mass/Vol] 9.3 mg/dL Normal 7.6-11.0 [facility] Comment on above: Performed By: #### L 500.2500, L100.0100 ####[facility] [address] [place], [address] Chloride [Moles/Vol] 105 mmol/L Normal 98-108 [facility] Comment on above: Performed By: #### L 500.2500, L100.0100 ####[facility] [address] [place], [address] CO2 [Moles/Vol] 27.3 mmol/L Normal 21.0-32.0 [facility] Comment on above: Performed By: #### L 500.2500, L100.0100 ####[facility] [address] [place], [address] Creatinine [Mass/Vol] 0.50 mg/dL Low 0.70-1.20 [facility] Comment on above: Performed By: #### L 500.2500, L100.0100 ####[facility] [address] [place], [address] ECRCL 44.08 ml/min Low 50-250 [facility] Comment on above: Performed By: #### L 500.2500, L100.0100 ####[facility] [address] [place], [address] GAP 9 Normal 5-15 [facility] Comment on above: Performed By: #### L 500.2500, L100.0100 ####[facility] [address] [place], [address] GFR/1.73 sq M.predicted among non-blacks MDRD (S/P/Bld) [Vol rate/Area] 93 mL/min/{1.73_m2} Normal >60 [facility] Comment on above: Result Comment: mL/m in/1.73m2 CKD-EPI Creatinine Equation (2020) Performed By: #### L 500.2500, L100.0100 ####[facility] [address] [place], [address] Glucose [Mass/Vol] 101 mg/dL High 70-99 [facility] Comment on above: Performed By: #### L 500.2500, L100.0100 ####[facility] [address] [place], [address] Potassium [Moles/Vol] 3.8 mmol/L Normal 3.3-5.1 [facility] Comment on above: Performed By: #### L 500.2500, L100.0100 ####[facility] [address] [place], [address] Sodium [Moles/Vol] 141 mmol/L Normal 133-145 [facility] Comment on above: Performed By: #### L 500.2500, L100.0100 ####[facility] [address] [place], [address] Urea nitrogen [Mass/Vol] 19 mg/dL Normal 4-19 [facility] Comment on above: Performed By: #### L 500.2500, L100.0100 ####[facility] [address] [place], [address] Basophil percentageOrdered B y: Brisa Gamble on 04-22-2025 Basophils/100 WBC (Bld) 0.5 % 0-1 [facility] Bilirubin Test strip Ql (U)O rdered By: Brisa Gamble on 04-22-2025 Bilirubin Ql (U) Negative Negative [facility] Brain/Head without Contrasto n 04-22-2025 Brain/Head without Contrast Normal [facility] CBC W/Diff, Automatedon Absolute Lymph 1.39 X10 3/uL Normal 0.83-4.51 [facility] Comment on above: Performed By: #### L 500.2500, L100.0100 ####[facility] [address] [place], [address] Absolute Neut 8.0 X10 3/uL High 2.0-7.7 [facility] Comment on above: Performed By: #### L 500.2500, L100.0100 ####[facility] [address] [place], [address] Basophils/100 WBC (Bld) 0.5 % Normal 0-1 [facility] Comment on above: Performed By: #### L 500.2500, L100.0100 ####[facility] [address] [place], [address] Eosinophils/100 WBC (Bld) 0.4 % Normal 0-5 [facility] Comment on above: Performed By: #### L 500.2500, L100.0100 ####[facility] [address] [place], [address] Erythrocyte distribution width (RBC) [Ratio] 13.9 % Normal 11.6-14.6 [facility] Comment on above: Performed By: #### L 500.2500, L100.0100 ####[facility] [address] [place], [address] Hematocrit (Bld) [Volume fraction] 46.9 % Normal 37-47 [facility] Comment on above: Performed By: #### L 500.2500, L100.0100 ####[facility] [address] [place], [address] Hemoglobin (Bld) [Mass/Vol] 15.1 g/dL High 12.0-15.0 [facility] Comment on above: Performed By: #### L 500.2500, L100.0100 ####[facility] [address] [place], [address] IG% 0.800 Normal 0.0-0.9 [facility] Comment on above: Result Comment: IG% - Immature Granulocytes (promyelocytes, myelocytes andmetamyelocytes) > 1% indicates that a LEFT SHIFT is Present. Performed By: #### L 500.2500, L100.0100 ####[facility] [address] [place], [address] Lymphocytes/100 WBC (Bld) 13.5 % Low 19-41 [facility] Comment on above: Performed By: #### L 500.2500, L100.0100 ####[facility] [address] [place], [address] MCH (RBC) [Entitic mass] 33.0 pg High 27.0-32.0 [facility] Comment on above: Performed By: #### L 500.2500, L100.0100 ####[facility] [address] [place], [address] MCHC (RBC) [Mass/Vol] 32.2 g/dL Normal 32-36 [facility] Comment on above: Performed By: #### L 500.2500, L100.0100 ####[facility] [address] [place], [address] MCV (RBC) [Entitic vol] 102.6 fL High 81-99 [facility] Comment on above: Performed By: #### L 500.2500, L100.0100 ####[facility] [address] [place], [address] Monocytes/100 WBC (Bld) 7.5 % Normal 0-10 [facility] Comment on above: Performed By: #### L 500.2500, L100.0100 ####[facility] [address] [place], [address] Neutrophils/100 WBC (Bld) 77.3 % High 47-70 [facility] Comment on above: Performed By: #### L 500.2500, L100.0100 ####[facility] [address] [place], [address] Nucleated RBC (Bld) [#/Vol] 0 10*3/uL Normal 0-5 [facility] Comment on above: Performed By: #### L 500.2500, L100.0100 ####[facility] [address] [place], [address] Platelet mean volume (Bld) [Entitic vol] 10.4 fL Normal 6.2-12.0 [facility] Comment on above: Performed By: #### L 500.2500, L100.0100 ####[facility] [address] [place], [address] Platelets (Bld) [#/Vol] 187 10*3/uL Normal 150-450 [facility] Comment on above: Performed By: #### L 500.2500, L100.0100 ####[facility] [address] [place], [address] RBC (Bld) [#/Vol] 4.57 10*6/uL Normal 4.2-5.4 [facility] Comment on above: Performed By: #### L 500.2500, L100.0100 ####[facility] [address] [place], [address] RDW SD 53.5 fl High 35.1-43.9 [facility] Comment on above: Performed By: #### L 500.2500, L100.0100 ####[facility] [address] [place], [address] WBC (Bld) [#/Vol] 10.3 10*3/uL Normal 4.4-11.0 [facility] Comment on above: Performed By: #### L 500.2500, L100.0100 ####[facility] [address] [place], [address] Carbon dioxide, total [Moles /volume] in Central venous bloodOrdered By: Brisa Gamble on 04-22-2025 CO2 [Moles/Vol] 26.0 mmol/L 21.0-32.0 [facility] CO2 [Moles/Vol] 27.3 mmol/L 21.0-32.0 [facility] Chest without Contraston Chest without Contrast Normal [facility] Chloride assayOrdered By: Deny Gamble on 04-22-2025 Chloride [Moles/Vol] 107 mmol/L 98-108 [facility] Chloride [Moles/Vol] 105 mmol/L 98-108 [facility] Emergency Department Summary on 04-22-2025 Emergency Department Summary Normal [facility] Eosinophil percentageOrdered By: Brisa Gamble on 04-22-2025 Eosinophils/100 WBC (Bld) 0.4 % 0-5 [facility] Erythrocyte distribution wid th ratioOrdered By: Brisa Gamble on 04-22-2025 Erythrocyte distribution width (RBC) [Ratio] 13.9 % 11.6-14.6 [facility] Erythrocyte distribution wid th standard deviationOrdered By: Brisa Gamble on 04-22-2025 Erythrocyte distribution width (RBC) [Ratio] 53.5 fl High 35.1-43.9 [facility] Glomerular filtration rate ( GFR) estimation/1.73 sq m using serum, plasma, or whole bOrdered By: Brisa Gamble on 04-22-2025 GFR/1.73 sq M.predicted among non-blacks MDRD (S/P/Bld) [Vol rate/Area] 93 mL/min/{1.73_m2} >60 [facility] Comment on above: mL/min/1.73m2 CKD-EP I Creatinine Equation (2020) GFR/1.73 sq M.predicted among non-blacks MDRD (S/P/Bld) [Vol rate/Area] 93 mL/min/{1.73_m2} >60 [facility] Comment on above: mL/min/1.73m2 CKD-EP I Creatinine Equation (2020) Hand Min 3 Viewson 5 Hand Min 3 Views Normal [facility] Hematocrit Auto (Bld) [Volum e fraction]Ordered By: Brisa Gamble on 04-22-2025 Hematocrit (Bld) [Volume fraction] 46.9 % 37-47 [facility] Hemoglobin measurementOrdere d By: Brisa Gamble on 04-22-2025 Hemoglobin (Bld) [Mass/Vol] 15.1 g/dL High 12.0-15.0 [facility] Immature granulocytes/100 WB C Auto (Bld)Ordered By: Brisa Gamble on 04-22-2025 Immature granulocytes/100 WBC (Bld) 0.800 % 0.0-0.9 [facility] Comment on above: IG% - Immature Granu locytes (promyelocytes, myelocytes and metamyelocytes) > 1% indicates that a LEFT SHIFT is Present. Ketones Test strip Ql (U)Ord ered By: Brisa Gamble on 04-22-2025 Ketones Ql (U) 5 mg/dl High Negative [facility] Knee 4 or More Viewson 04-22 Knee 4 or More Views Normal [facility] MCV (mean corpuscular volume ) determinationOrdered By: Brisa Gamble on 04-22-2025 MCV (RBC) [Entitic vol] 102.6 fL High 81-99 [facility] Mean corpuscular hemoglobin (MCH) determinationOrdered By: Brisa Gamble on 04-22-2025 MCH (RBC) [Entitic mass] 33.0 pg High 27.0-32.0 [facility] Mean corpuscular hemoglobin concentration (MCHC) determinationOrdered By: Brisa Gamble on 04-22-2025 MCHC (RBC) [Mass/Vol] 32.2 g/dL 32-36 [facility] Mean platelet volume determi nationOrdered By: Brisa Gamble on 04-22-2025 Platelet mean volume (Bld) [Entitic vol] 10.4 fL 6.2-12.0 [facility] Microscopic analysis of urin e for red blood cells (RBC)Ordered By: Brisa Gamble on 04-22-2025 Microscopic analysis of urine for red blood cells (RBC) 0-5 SEEN /hpf 0-5 [facility] Monocyte percentageOrdered B y: Brisa Gamble on 04-22-2025 Monocytes/100 WBC (Bld) 7.5 % 0-10 [facility] Mucus LM Ql (Urine sed)Order ed By: Brisa Gamble on 04-22-2025 Mucus Ql (Urine sed) RARE /hpf [facility] Neutrophil percentageOrdered By: Brisa Gamble on 04-22-2025 Neutrophils/100 WBC (Bld) 77.3 % High 47-70 [facility] Nitrite Test strip Ql (U)Ord ered By: Brisa Gamble on 04-22-2025 Nitrite Ql (U) Negative Negative [facility] Nucleated red blood cell per centageOrdered By: Brisa Gamble on 04-22-2025 Nucleated RBC/100 WBC (Bld) [Ratio] 0 % 0-5 [facility] Platelet countOrdered By: Deny Gamble on 04-22-2025 Platelets (Bld) [#/Vol] 187 10*3/uL 150-450 [facility] Potassium measurement (mass/ volume)Ordered By: Brisa Gamble on 04-22-2025 Potassium (Unsp spec) [Mass/Vol] 3.8 mmol/L 3.3-5.1 [facility] Comment on above: Hemolysis present, R esults could be affected. Potassium (Unsp spec) [Mass/Vol] 3.8 mmol/L 3.3-5.1 [facility] Protein Test strip Ql (U)Ord ered By: Brisa Gamble on 04-22-2025 Protein Ql (U) 15 mg/dl High Negative [facility] RBC Auto (Bld) [#/Vol]Ordere d By: Brisa Gamble on 04-22-2025 RBC (Bld) [#/Vol] 4.57 10*6/uL 4.2-5.4 [facility] Serum creatinine measurement (mass/volume)Ordered By: Brisa Gamble on 04-22-2025 Creatinine [Mass/Vol] 0.48 mg/dL Low 0.70-1.20 [facility] Creatinine [Mass/Vol] 0.50 mg/dL Low 0.70-1.20 [facility] Serum glucose measurement (m ass/volume)Ordered By: Brisa Gamble on 04-22-2025 Glucose [Mass/Vol] 97 mg/dL 70-99 [facility] Glucose [Mass/Vol] 101 mg/dL High 70-99 [facility] Serum or plasma calcium azael urement (mass/volume)Ordered By: Brisa Gamble on 04-22-2025 Calcium [Mass/Vol] 9.1 mg/dL 7.6-11.0 [facility] Calcium [Mass/Vol] 9.3 mg/dL 7.6-11.0 [facility] Serum or plasma urea nitroge n measurement (mass/volume)Ordered By: Brisa Gabmle on 04-22-2025 Urea nitrogen [Mass/Vol] 18 mg/dL 4-19 [facility] Urea nitrogen [Mass/Vol] 19 mg/dL 4- [facility] Shoulder min 2 Viewson 04-22 Shoulder min 2 Views Normal [facility] Sodium levelOrdered By: Andrew Gamble on 04-22-2025 Sodium [Moles/Vol] 141 mmol/L 133-145 [facility] Sodium [Moles/Vol] 141 mmol/L 133-145 [facility] Spine Cervical without Contr ason 04-22-2025 Spine Cervical without Contras Normal [facility] Squamous epithelial cells de tection in urine sediment by light microscopyOrdered By: Brisa Gamble on 04-22-2025 Epithelial cells.squamous LM Ql (Urine sed) 0-5 SEEN /hpf -10 [facility] Urinalysis, Completeon 04-22 EPI,SQUAMOUS 0-5 SEEN Normal -10 [facility] Comment on above: Order Comment: BERYL CTOR TO SPECIFY Performed By: #### L 400.0001 ####[facility] [address] [facility] [address] Mucus Ql (Urine sed) RARE Normal [facility] Comment on above: Order Comment: BERYL CTOR TO SPECIFY Performed By: #### L 400.0001 ####[facility] [address] [place], [address] RBC 0-5 SEEN Normal 0-5 [facility] Comment on above: Order Comment: BERYL CTOR TO SPECIFY Performed By: #### L 400.0001 ####[facility] [address] [place], [address] WBC 0-5 SEEN Normal 0-5 [facility] Comment on above: Order Comment: BERYL CTOR TO SPECIFY Performed By: #### L 400.0001 ####[facility] [address] [place], [address] BACTERIA 0 SEEN Normal None Seen [facility] Comment on above: Order Comment: BERYL CTOR TO SPECIFY Performed By: #### L 400.0001 ####[facility] [address] [place], [address] Urine clarityOrdered By: Vee Gamble on 04-22-2025 Clarity (U) Clear Clear [facility] Urine color determinationOrd ered By: Brisa Gamble on 04-22-2025 Color (U) Yellow Yellow [facility] Urine glucose detectionOrder ed By: Brisa Gamble on 04-22-2025 Glucose Ql (U) 1000 mg/dl High Normal [facility] Urine leukocyte esterase det ection by dipstickOrdered By: Brisa Gamble on 04-22-2025 Leukocyte esterase Test strip Ql (U) Negative Negative [facility] Urine pHOrdered By: Brisa cotton on 04-22-2025 pH (U) 5.0 [pH] 5.0 - 8.0 [facility] Urine sediment bacteria coun t by microscopy (number/high power field)Ordered By: Brisa Gamble on 04-22-2025 Bacteria LM.HPF (Urine sed) [#/Area] 0 /[HPF] None Seen [facility] Urine specific gravity measu rementOrdered By: Brisa Gamble on 04-22-2025 Specific gravity (U) [Rel density] 1.025 1.002-1.03 0 [facility] Urine urobilinogen measureme ntOrdered By: Brisa Gamble on 04-22-2025 Urobilinogen Ql (U) Normal mg/dl Normal [facility] White blood cell (WBC) count Ordered By: Brisa Gamble on 04-22-2025 WBC (Bld) [#/Vol] 10.3 10*3/uL 4.4-11.0 [facility] White blood cell countOrdere d By: Brisa Gamble on 04-22-2025 White blood cell count 0-5 SEEN /hpf 0-5 [facility] 36on 04-03-2025 36 Name of caller: Jessica mills Contact phone number: [phone] Relationship to Patient: PCP Provider: Kraig [facility]: [facility] Chief Complaint/Reason for Call: Annelise calling in to let Felecia know pt is cleared by PCP to have any medications. Best time of day caller can be reached: Any Patient advised that office/PCP has 24-48 business hours to return their call: [facility] CNOVSPon 2025 CNOVSP Visit (SP) Office (H EMAWS) -- LESLI ROSALES ([id number]) 1940 F Date Time Provider Department 03/31/25 1:00 PM GAGAN VIVAR During your visit today, we recorded the following information about you: Temperature Pulse Blood pressure Weight 98.8 degrees 61/minute 146/83 58.7 kg Height 1.524 m Gagan Vivar MD 2025 2:13 PM Signed HISTORY OF PRESENT ILLNESS: Lesliserg Rosales is a 85 year old female with severe osteoporosis, saw [facility], they noted monoclonal protein in blood and urine prior to initiating bone anabolic therapy. Here for evaluation. Labs reviewed low level M spike kappa chains in urine. Labs otherwise not suggestive of myeloma. CLINICAL IMPRESSION: Low level monoclonal gammopathy, other labs indicate MGUS RECOMMENDATION/PLAN: 1. See no reason she cannot have bone modifiers on basis of these labs Written and verbal health teaching given to patient, patient verbalizes understanding and agrees with treatment plan. PAST MEDICAL HISTORY[1] PAST SURGICAL HISTORY Procedure Laterality Date APPENDECTOMY BACK SURGERY HX 1985 CHOLECYSTECTOMY HX COLONOSCOPY SCREENING EGD W/O [facility] SPEC VARICIES INJ REPAIR OF RECTOCELE REPAIR UMBILICAL HERNIA 2009 SHX TOTAL SHOULDER REVERSE Right SLING OPER STRES INCONTINENCE UMBILICAL HERNIA REPAIR 5 OR OLDER 1965 VAGINAL HYSTERECTOMY FAMILY HISTORY[2] SOCIAL HISTORY[3] ALLERGIES: ALLERGIES[4] CURRENT OUTPATIENT MEDICATIONS: buprenorphine (BUTRANS) 5 mcg/hour transdermal patch Apply 1 patch as directed one time a week. furosemide (LASIX) 20 mg tablet TAKE 1 TABLET BY MOUTH EVERY DAY NEEDED SWELLING (Patient taking differently: Take 20 mg by mouth once daily as needed.) Cholecalciferol, Vitamin D3, 50 mcg (2,000 unit) cap Take 2,000 Units by mouth. (Patient taking differently: Take 2,000 Units by mouth once daily.) atenolol (TENORMIN) 25 mg tablet TAKE 1 TABLET BY MOUTH ONCE DAILY famotidine (PEPCID) 20 mg tablet TAKE 1 TABLET BY MOUTH ONCE DAILY rivaroxaban (XARELTO) 20 mg tablet Take 1 tablet by mouth daily with dinner. budesonide-formoterol (SYMBICORT) 160-4.5 mcg/actuation inhaler Inhale 2 Puffs as instructed two times a day. risankizumab-rzaa (SKYRIZI) 150 mg/mL injection Inject 150 mg subcutaneously every 3 months. albuterol HFA (PROVENTIL HFA, VENTOLIN HFA) 90 mcg/actuation inhaler (Patient taking differently: Inhale 1 puff as instructed every 4 hours as needed.) baclofen (LIORESAL) 5 mg tablet Take 5 mg by mouth twice daily. (Patient taking differently: Take 5 mg by mouth daily at bedtime.) betamethasone valerate 0.1 % cream Apply to affected area once daily. Apply to arms (Patient taking differently: Apply 1 application to affected area once daily as needed. Apply to arms) amitriptyline (ELAVIL) 25 mg tablet 25 mg daily at bedtime. (Patient not taking: Reported on 2025) hydroCHLOROthiazide 12.5 mg capsule TAKE 1 CAPSULE BY MOUTH ONCE DAILY (Patient not taking: Reported on 2025) tiotropium (SPIRIVA WITH HANDIHALER) 18 mcg inhalation capsule inhale THE CONTENTS OF ONE CAPSULE IN THE HANDIHALER every morning (Patient not taking: Reported on 2025) lidocaine (LIDODERM) 5 % (Patient not taking: Reported on 2025) gabapentin (NEURONTIN) 100 mg capsule Take 100 mg by mouth three times a day. (Patient not taking: Reported on 2025) hydrOXYzine HCl (ATARAX) 25 mg tablet Take 1 tablet by mouth three times a day as needed. (Patient not taking: Reported on 2025) REVIEW OF SYSTEMS: GENERAL: No fever, night sweats, weight loss or malaise. All other reviewed and negative other than HPI. PHYSICAL EXAMINATION: VITAL SIGNS: BP 146/83 Pulse 61 Temp (Src) 98.8 (Temporal) Ht 5' 0" (1.52m) Wt 129 lb 8 oz (58.7kg) SpO2 93% BMI 25.29 kg/(m2). GENERAL APPEARANCE: Well appearing, in no acute distress, alert and oriented x3, well-hydrated, well nourished. I spent a total of 45 minutes on the date of the service which included preparing to see the patient, [id number] patient care, completing clinical documentation, obtaining and/or reviewing separately obtained history, counseling and educating the patient/family/caregiver, communicating with other HCPs (not separately reported), independently interpreting results (not separately reported), and communicating results to the patient/family/caregiver. Electronically Signed: Gagan Vivar MD 2025 1:14 PM [1] Past Medical History: No date: A-fib ([facility]) No date: Chronic obstructive pulmonary disease (COPD) ([facility]) No date: Hypertension No date: Lung nodules No date: Psoriasis No date: Psoriatic arthritis ([facility]) [2] Review of patient's family history indicates: Adopted: Yes [3] Social History Tobacco Use Smoking status: Former Current packs/day: 0.00 Average packs/day: (more content not included)... Normal [facility] -- LESLI ROSALES ([id number]) 1940 F Date Time Provider Department 03/31/25 GAGAN VIVAR During your visit today, we recorded the following information about you: Claudette Guzmán 2025 3:19 PM Signed Patient checked out without AVS Please advise Miranda Mcdowell, RN 2025 3:49 PM Signed No follow up per Dr. Cb Walsh, RN Allergies As of Date: 2025 (No Known Allergies) Date Reviewed: 2025 Reviewed by: Kristi Lopez Ma, MA - Fully Assessed Reason for Visit: avs 03/31 [Other] Prescriptions as of 05/13/2025 - buprenorphine (BUTRANS) 5 mcg/hour transdermal patch Apply 1 patch as directed one time a week. - furosemide (LASIX) 20 mg tablet TAKE 1 TABLET BY MOUTH EVERY DAY NEEDED SWELLING - Cholecalciferol, Vitamin D3, 50 mcg (2,000 unit) cap Take 2,000 Units by mouth. - atenolol (TENORMIN) 25 mg tablet TAKE 1 TABLET BY MOUTH ONCE DAILY - famotidine (PEPCID) 20 mg tablet TAKE 1 TABLET BY MOUTH ONCE DAILY - amitriptyline (ELAVIL) 25 mg tablet 25 mg daily at bedtime. - hydroCHLOROthiazide 12.5 mg capsule TAKE 1 CAPSULE BY MOUTH ONCE DAILY - rivaroxaban (XARELTO) 20 mg tablet Take [...] to arms Problem List As Of Date 2025 Noted Resolved History of right shoulder replacement [...] demen*01/17/2024 Weakness [R53.1] 12/03/2024 Encounter Status:Closed by CLAUDETTE GUZMÁN on 05/13/[address] [facility] 36on 03-28-2025 36 Name of caller: Jessica mills Contact phone number: [phone] Relationship to Patient: Dr. Guthrie's office Provider: REESE Flowers Practice: [facility] Chief Complaint/Reason for Call: Annelise from Dr. Guthrie's office stated that the patient had a DEXA bone density test don on 03/20/2025 and would like to verify that the office received those results. Annelise stated that the patient's osteo is worsening and the patient has an appointment scheduled with Hematology Oncology in regards to abnormal blood work. Annelise stated that they requested to wait until after the appointment with hematology oncology before specialty medications are prescribed for the patient. Please advise. Best time of day caller can be reached: Any Patient advised that office/PCP has 24-48 business hours to return their call: Yes Normal [facility] DEXA BONE DENSITY AXIAL SKEL ETONotl 03-20-2025 DEXA BONE DENSITY AXIAL SKELETON Patient Name: LESLI ROSALES : 1940 [facility]#: [id number] Exam Date/Time: 03/20/2025 13:20 Procedure: DEXA BONE DENSITY AXIAL SKELETON Ordering Provider: GUTHRIE RACHEL Reason For Exam: z78.0 menopause DXA BONE DENSITOMETRY: CLINICAL INDICATION: Asymptomatic post-menopausal status, screening for osteoporosis COMPARISON: 03/12/2019 TECHNIQUE: Quantitative bone mineral densitometry of the hip and lumbar spine was performed with a dual energy x-ray observed absorptiometry device - HoloAcunote W. Regions of interest were obtained through the left proximal femur and compared to the normal value of the young adult. Regions of interest were also obtained through the lumbar vertebrae with an average value determined and compared with the young adult. The measured bone density minus the bone density of the young normal reference divided by the reference standard deviation is expressed as the T score. Using the same formula adjusting the reference density and standard deviation for age and race determines the Z score. According to World Health Organization criteria: T-score of -1.0 or higher is normal. T-score between -1.0 and -2.5 is low bone density or "osteopenia." T-score of -2.5 or lower is abnormally low, compatible with osteoporosis. T-score of -2.5 or less plus fragility fracture indicates "severe osteoporosis." FINDINGS: Spine: L1, L3-L4 Density 0.76 g/cm2. T-score: -2.6 Z-score: 0.2 Comparison from prior examination:6.8% decrease in bone mineral density Hip: Femoral neck Density: 0.42 g/cm2. T-score: -3.9 Z-score: -1.4 Hip: Total hip Density: 0.44 g/cm2. T-score: -4.1 Z-score: -1.8 Comparison from prior examination:32.1% decrease in bone mineral density IMPRESSION: Osteoporosis FRACTURE RISK: The estimated 10 year risk for a major osteoporosis-related fracture is 42 % and risk for hip fracture is 20 % (FRAX web version 3.08). The current National Osteoporosis Foundation recommends pharmacologic treatment for patients with FRAX 10-year risk scores of > 20% for major osteoporotic fracture or > 3% for hip fracture, to reduce their fracture risk. FOLLOW-UP RECOMMENDATIONS: Patients with osteoporosis or or at high risk for fracture should have follow-up bone density tests. For Medicare patients, routine testing is allowed every 2 years. Patients who have low bone mass (T score -2.0 to -2.49), who are currently on treatment for low bone mass, or having risk factors for accelerated bone loss (glucocorticoids, aromatase inhibitors, etc.), consider repeat DXA in 1-2 years. Patients with osteopenia and no risk factors may consider follow-up every 3-5 years. Report Dictated on Electronically Signed By: Franco Collins DR Electronically Signed Date/Time: 03/20/2025 4:40 PM EDT [facility] DXA Skeletal system.axial Vi ews for bone densityon 03-20-2025 Osteoporosis FRACTURE RISK: The estimated 10 year risk for a major osteoporosis-related fracture is 42 % and risk for hip fracture is 20 % (FRAX web version 3.08). The current National Osteoporosis Foundation recommends pharmacologic treatment for patients with FRAX 10-year risk scores of > 20% for major osteoporotic fracture or > 3% for hip fracture, to reduce their fracture risk. FOLLOW-UP RECOMMENDATIONS: Patients with osteoporosis or or at high risk for fracture should have follow-up bone density tests. For Medicare patients, routine testing is allowed every 2 years. Patients who have low bone mass (T score -2.0 to -2.49), who are currently on treatment for low bone mass, or having risk factors for accelerated bone loss (glucocorticoids, aromatase inhibitors, etc.), consider repeat DXA in 1-2 years. Patients with osteopenia and no risk factors may consider follow-up every 3-5 years. Report Dictated on Electronically Signed By: Franco Collins DR Electronically Signed Date/Time: 03/20/2025 4:40 PM T [facility] RADIOLOGY SYSTEM Patient Name: LESLI HERNANDEZ MS : 1940 Exam Date/Time: 03/20/2025 13:20 Procedure: DEXA BONE DENSITY AXIAL SKELETON Ordering Provider: GUTHRIE RACHEL Reason For Exam: z78.0 menopause DXA BONE DENSITOMETRY: CLINICAL INDICATION: Asymptomatic post-menopausal status, screening for osteoporosis COMPARISON: 03/12/2019 TECHNIQUE: Quantitative bone mineral densitometry of the hip and lumbar spine was performed with a dual energy x-ray observed absorptiometry device - Hologic Horizon W. Regions of interest were obtained through the left proximal femur and compared to the normal value of the young adult. Regions of interest were also obtained through the lumbar vertebrae with an average value determined and compared with the young adult. The measured bone density minus the bone density of the young normal reference divided by the reference standard deviation is expressed as the T score. Using the same formula adjusting the reference density and standard deviation for age and race determines the Z score. According to World Health Organization criteria: T-score of -1.0 or higher is normal. T-score between -1.0 and -2.5 is low bone density or "osteopenia." T-score of -2.5 or lower is abnormally low, compatible with osteoporosis. T-score of -2.5 or less plus fragility fracture indicates "severe osteoporosis." FINDINGS: Spine: L1, L3-L4 Density 0.76 g/cm2. T-score: -2.6 Z-score: 0.2 Comparison from prior examination:6.8% decrease in bone mineral density Hip: Femoral neck Density: 0.42 g/cm2. T-score: -3.9 Z-score: -1.4 Hip: Total hip Density: 0.44 g/cm2. T-score: -4.1 Z-score: -1.8 Comparison from prior examination:32.1% decrease in bone mineral density [facility] RADIOLOGY [facility] Franco Collins MD - 03/20/2025 Patient Name: LESLI ROSALES : 1940 [facility]#: [id number] Exam Date/Time: 03/20/2025 13:20 Procedure: DEXA BONE DENSITY AXIAL SKELETON Ordering Provider: GUTHRIE RACHEL Reason For Exam: z78.0 menopause DXA BONE DENSITOMETRY: CLINICAL INDICATION: Asymptomatic post-menopausal status, screening for osteoporosis COMPARISON: 03/12/2019 TECHNIQUE: Quantitative bone mineral densitometry of the hip and lumbar spine was performed with a dual energy x-ray observed absorptiometry device - Hologic Horizon W. Regions of interest were obtained through the left proximal femur and compared to the normal value of the young adult. Regions of interest were also obtained through the lumbar vertebrae with an average value determined and compared with the young adult. The measured bone density minus the bone density of the young normal reference divided by the reference standard deviation is expressed as the T score. Using the same formula adjusting the reference density and standard deviation for age and race determines the Z score. According to World Health Organization criteria: T-score of -1.0 or higher is normal. T-score between -1.0 and -2.5 is low bone density or "osteopenia." T-score of -2.5 or lower is abnormally low, compatible with osteoporosis. T-score of -2.5 or less plus fragility fracture indicates "severe osteoporosis." FINDINGS: Spine: L1, L3-L4 Density 0.76 g/cm2. T-score: -2.6 Z-score: 0.2 Comparison from prior examination:6.8% decrease in bone mineral density Hip: Femoral neck Density: 0.42 g/cm2. T-score: -3.9 Z-score: -1.4 Hip: Total hip Density: 0.44 g/cm2. T-score: -4.1 Z-score: -1.8 Comparison from prior examination:32.1% decrease in bone mineral density IMPRESSION: Osteoporosis FRACTURE RISK: The estimated 10 year risk for a major osteoporosis-related fracture is 42 % and risk for hip fracture is 20 % (FRAX web version 3.08). The current National Osteoporosis Foundation recommends pharmacologic treatment for patients with FRAX 10-year risk scores of > 20% for major osteoporotic fracture or > 3% for hip fracture, to reduce their fracture risk. FOLLOW-UP RECOMMENDATIONS: Patients with osteoporosis or or at high risk for fracture should have follow-up bone density tests. For Medicare patients, routine testing is allowed every 2 years. Patients who have low bone mass (T score -2.0 to -2.49), who are currently on treatment for low bone mass, or having risk factors for accelerated bone loss (glucocorticoids, aromatase inhibitors, etc.), consider repeat DXA in 1-2 years. Patients with osteopenia and no risk factors may consider follow-up every 3-5 years. Report Dictated on Electronically Signed By: Franco Collins DR Electronically Signed Date/Time: 03/20/2025 4:40 PM EDT [facility] Radiology Study observation (narrative) [facility] DXA Skeletal system.axial Vi ews for bone densityOrdered By: Franco Collins on 03-20-2025 [facility] Work Phone: Lumbar Spine 2 or 3 Viewson 03-13-2025 Lumbar Spine 2 or 3 Views Normal [facility] Orthopedic Visit Reporton Orthopedic Visit Report Normal [facility] Amorphous sediment detection in urine sediment by light microscopyOrdered By: María Wasserman on 03-10-2025 Amorphous sediment LM Ql (Urine sed) 3+ [facility] Bilirubin Test strip Ql (U)O rdered By: María Wasserman on 03-10-2025 Bilirubin Ql (U) 1 mg/dL High Negative [facility] Comment on above: COLOR OF URINE MAY A FFECT DIPSTICK RESULTS. Calcium oxalate crystals det ection in urine sediment by light microscopyOrdered By: María Wasserman on 03-10-2025 Calcium oxalate crystals LM Ql (Urine sed) 2+ /hpf [facility] Ketones Test strip Ql (U)Ord ered By: María Wasserman on 03-10-2025 Ketones Ql (U) 5 mg/dl High Negative [facility] Microscopic analysis of urin e for red blood cells (RBC)Ordered By: María Wasserman on 03-10-2025 Microscopic analysis of urine for red blood cells (RBC) 0-5 SEEN /hpf 0-5 [facility] Mucus LM Ql (Urine sed)Order ed By: María Wasserman on 03-10-2025 Mucus Ql (Urine sed) 0 SEEN /hpf [facility] Nitrite Test strip Ql (U)Ord ered By: María Wasserman on 03-10-2025 Nitrite Ql (U) Negative Negative [facility] Protein Test strip Ql (U)Ord ered By: María Wasserman on 03-10-2025 Protein Ql (U) 30 mg/dl High Negative [facility] Squamous epithelial cells de tection in urine sediment by light microscopyOrdered By: María Wasserman on 03-10-2025 Epithelial cells.squamous LM Ql (Urine sed) 0-5 SEEN /hpf 5-10 [facility] Urinalysis, Completeon 03-10 AMORPHOUS 3+ Normal [facility] Comment on above: Order Comment: BERYL CTOR TO SPECIFY Performed By: #### L [id number] ####[facility] [address] [place], [address] BACTERIA 3+ /hpf Normal None Seen [facility] Comment on above: Order Comment: BERYL CTOR TO SPECIFY Performed By: #### L [id number] ####[facility] [address] [place], [address] CA OX CRYSTAL 2+ /hpf Normal [facility] Comment on above: Order Comment: BERYL CTOR TO SPECIFY Performed By: #### L [id number] ####[facility] [address] [place], [address] EPI,SQUAMOUS 0-5 SEEN Normal 5-10 [facility] Comment on above: Order Comment: BERYL CTOR TO SPECIFY Performed By: #### [id number] ####[facility] [address] [place], [address] RBC 0-5 SEEN Normal 0-5 [facility] Comment on above: Order Comment: BERYL CTOR TO SPECIFY Performed By: #### L [id number] ####[facility] [address] [place], [address] WBC 5-10 SEEN Normal 0-5 [facility] Comment on above: Order Comment: BERYL CTOR TO SPECIFY Performed By: #### [id number] ####[facility] [address] [place], [address] Mucus Ql (Urine sed) 0 SEEN Normal [facility] Comment on above: Order Comment: BERYL CTOR TO SPECIFY Performed By: #### [id number] ####[facility] [address] [place], [address] Urine clarityOrdered By: Chito Wasserman on 03-10-2025 Clarity (U) Cloudy Clear [facility] Urine color determinationOrd ered By: María Wasserman on 03-10-2025 Color (U) Yellow Yellow [facility] Urine glucose detectionOrder ed By: Maraí Wasserman on 03-10-2025 Glucose Ql (U) 250 mg/dl High Normal [facility] Urine leukocyte esterase det ection by dipstickOrdered By: María Wasserman on 03-10-2025 Leukocyte esterase Test strip Ql (U) 500 /ul High Negative [facility] Urine pHOrdered By: Chrissy Wasserman on 03-10-2025 pH (U) 5.0 [pH] 5.0 - 8.0 [facility] Urine sediment bacteria coun t by microscopy (number/high power field)Ordered By: María Wasserman on 03-10-2025 Bacteria LM.HPF (Urine sed) [#/Area] 3 /[HPF] None Seen [facility] Urine specific gravity measu rementOrdered By: María Wasserman on 03-10-2025 Specific gravity (U) [Rel density] 1.025 1.002-1.03 0 [facility] Urine urobilinogen measureme ntOrdered By: María Wasserman on 03-10-2025 Urobilinogen Ql (U) 1 mg/dl High Normal [facility] White blood cell countOrdere d By: María Wasserman on 03-10-2025 White blood cell count 5-10 SEEN /hpf 0-5 [facility] Laboratory - Chemistry and C hemistry - challengeOrdered By: María Wasserman on 03-08-2025 Bilirubin Ql (U) Negative [facility] Glucose [Mass/Vol] 100 mg/dL 70-110 [facility] Glucose Ql (U) 500 g/dL [facility] Ketones Ql (U) Negative [facility] pH (U) 6.5 [pH] [facility] Specific gravity (U) [Rel density] 1.015 [facility] - Hematology and Cell countsOrdered By: María Wasserman on 03-08-2025 Hemoglobin Ql (U) Hemolyzed [facility] - Specimen inform ationOrdered By: María Wasserman on 03-08-2025 Clarity (U) Clear [facility] Color (U) DARK YELLOW [facility] Laboratory - UrinalysisOrder ed By: María Wasserman on 03-08-2025 Nitrite Ql (U) Negative [facility] Protein Ql (U) 1+ [facility] No Panel InformationOrdered By: María Wasserman on 03-08-2025 Urine Leukocytes Positive [facility] Urine Non-Hemolyzed Blood Trace [facility] DARK YELLOW [facility] 100 mg/dL 70-110 [facility] Clear [facility] 500 g/dL [facility] Negative [facility] 1.015 [facility] 6.5 [facility] Hemolyzed [facility] Trace [facility] 1+ [facility] Positive [facility] Urgent Care Visit Reporton 0 03-08-2025 Urgent Care Visit Report Normal [facility] 36on 03-07-2025 36 Name of caller: Jessica lina Contact phone number: [facility] [place] Provider: [place] Practice: [facility] [place] Chief Complaint/Reason for Call: calling to report that patient had a high blood pressure reading of 172/98 pulse 72 today , however was having pain at 10 on pain scale at the time Best time of day caller can be reached: anytime Patient advised that office/PCP has 24-48 business hours to return their call: N/A Normal [facility] PROTEIN, TOTAL AND PROTEIN E LECTROPHORESIS, RANDOM URINEon 03-05-2025 ALBUMIN 32 % Normal [facility] Comment on above: Order Comment: 0; 0; 0; 0; 0; 0 FASTING:YES FASTING: YES Performed By: #### 8 525, 213, 1759, 927, 6517, 1005, 10143, 91009 #### [facility] [address], [address] [place], [place] [id number] [facility] aRpp MD [id number] 9 % Normal [facility] Comment on above: Order Comment: 0; 0; 0; 0; 0; 0 FASTING:YES FASTING: YES Performed By: #### 8 525, 213, 1759, 927, 6517, 1005, 29879, 41946 #### [facility] [address], [address] [place] [address] [facility] Rapp MD [id number] 18 % Normal [facility] Comment on above: Order Comment: 0; 0; 0; 0; 0; 0 FASTING:YES FASTING: YES Performed By: #### 8 525, 213, 1759, 927, 6517, 1005, 36290, 63899 #### [facility] [address], [address] [place] [address] [facility] Rapp MD BETA GLOBULINS 21 % Normal [facility] Comment on above: Order Comment: 0; 0; 0; 0; 0; 0 FASTING:YES FASTING: YES Performed By: #### 8 525, 213, 1759, 927, 6517, 1005, 36225, 41821 #### [facility] [place] [address] [facility] Rapp MD Creatinine (U) [Mass/Vol] 68 mg/dL Normal 20-275 [facility] Comment on above: Order Comment: 0; 0; 0; 0; 0; 0 FASTING:YES FASTING: YES Performed By: #### 8 525, 213, 1759, 927, 6517, 1005, 23846, 08872 #### [facility] [place] [address] [facility] Rapp MD GAMMA GLOBULINS 20 % Normal [facility] Comment on above: Order Comment: 0; 0; 0; 0; 0; 0 FASTING:YES FASTING: YES Performed By: #### 8 525, 213, 1759, 927, 6517, 1005, 76654, 13630 #### [facility] [address], [address] [place] [address] [facility] Rapp MD INTERPRETATION Normal [facility] Comment on above: Order Comment: 0; 0; 0; 0; 0; 0 FASTING:YES FASTING: YES Result Comment: Urin e protein electrophoresis reveals a faint band in the beta region that may indicate the presence of a monoclonal immunoglobulin. Suggest urine immunofixation electrophoresis if clinically indicated. Performed By: #### 8 525, 213, 1759, 927, 6517, 1005, 33331, 55680 #### [facility] [address], [address] [place] [address] [facility] Christiano Rapp MD Protein (U) [Mass/Vol] 29 mg/dL High 5-24 [facility] Comment on above: Order Comment: 0; 0; 0; 0; 0; 0 FASTING:YES FASTING: YES Performed By: #### 8 525, 213, 1759, 927, 6517, 1005, 19126, 50259 #### [facility] [address], [address] [place] [address] [facility] Christiano Rapp MD PROTEIN/CREATININE RATIO 426 mg/g creat High 24-184 [facility] Comment on above: Order Comment: 0; 0; 0; 0; 0; 0 FASTING:YES FASTING: YES Performed By: #### 8 525, 213, 1759, 927, 6517, 1005, 82177, 25201 #### [facility] [address], [address] [place] [address] [facility] Christiano Rapp MD PROTEIN/CREATININE RATIO 0.426 mg/mg creat High 0.024-0.18 4 [facility] Comment on above: Order Comment: 0; 0; 0; 0; 0; 0 FASTING:YES FASTING: YES Performed By: #### 8 525, 213, 1759, 927, 6517, 1005, 68067, 65915 #### [facility] [place] [address] [facility] Christiano Rapp MD PROTEIN, TOTAL AND PROTEIN E LECTROPHORESIS, URINEon 03-05-2025 ALBUMIN Normal [facility] Comment on above: Order Comment: URINE VOLUME: 1800/24 Result Comment: TEST NOT PERFORMED No specimen received. Performed By: #### 8 525, 213, 1759, 927, 6517, 1005, 43536, 27542 #### [facility] [address], [address] [place] [address] [facility] Christiano Rapp MD CREATININE, 24 HOUR URINE Normal [facility] Comment on above: Order Comment: URINE VOLUME: 1800/24 Result Comment: TEST NOT PERFORMED No specimen received. Performed By: #### 8 525, 213, 1759, 927, 6517, 1005, 74534, 53861 #### [facility] [address], [address] [place] [address] [facility] Christiano Rapp MD CARDIO IQ(R) NT PROBNPon Natriuretic peptide B (Bld) [Mass/Vol] 1769 pg/mL High <450 [facility] Comment on above: Order Comment: 0FAST ING:YESFASTING: YES Performed By: #### 8 525, 213, 1759, 927, 6517, 1005, 73760, 92041 #### [facility] [address], [address] [place] [address] [facility]o Rapp MD Emergency Department Summary on 02-11-2025 Emergency Department Summary Normal [facility] Lumbar Spine 2 or 3 Viewson 02-11-2025 Lumbar Spine 2 or 3 Views Normal [facility] ALBUMIN, RANDOM URINE W/CREA TININEon 02-10-2025 ALBUMIN, URINE 6.7 mg/dL Normal See Note: [facility] Comment on above: Result Comment: Refe rence Range: Reference Range Not established Performed By: #### 8 525, 213, 1759, 927, 6517, 1005, 58518, 29491 #### [facility] [address], [address] [place] [address] [facility] Christiano Rapp MD ALBUMIN/CREATININE RATIO, RANDOM URINE [...] within a diagnostic category. Performed By: #### 8 525, 213, 1759, 927, 6517, 1005, 63420, 61049 #### [facility] [address], [address] [place] [address] [facility] Christiano Rapp MD Creatinine (U) [Mass/Vol] 131 mg/dL Normal 20-275 [facility] Comment on above: Performed By: #### 8 525, 213, 1759, 927, 6517, 1005, 70168, 01617 #### [facility] [address], [address] [place] [address] [facility] Christiano Rapp MD BASIC METABOLIC PANELon 06-2 -2024 Calcium [Mass/Vol] 9.4 mg/dL Normal 8.6-10.4 [facility] Comment on above: Performed By: #### 8 525, 213, 1759, 927, 6517, 1005, 28544, 38021 #### [facility] [address], [address] [place] [address] [facility] Christiano Rapp MD Chloride [Moles/Vol] 106 mmol/L Normal 98-110 [facility] Comment on above: Performed By: #### 8 525, 213, 1759, 927, 6517, 1005, 40747, 22450 #### [facility] [address], [address] [place] [address] [facility] Christiano Rapp MD CO2 [Moles/Vol] 28 mmol/L Normal 20-32 [facility] Comment on above: Performed By: #### 8 525, 213, 1759, 927, 6517, 1005, 73477, 89290 #### [facility] [place] [address] [facility] Christiano Rapp MD Creatinine [Mass/Vol] 0.42 mg/dL Low 0.60-0.[address] [facility] Comment on above: Performed By: #### 8 525, 213, 1759, 927, 6517, 1005, 34466, 37893 #### [facility] [address], [address] [place] [address] [facility] Christiano Rapp MD GFR/1.73 sq M.predicted among non-blacks MDRD (S/P/Bld) [Vol rate/Area] 97 mL/min/{1.73_m2} Normal > OR = 60 [facility] Comment on above: Performed By: #### 8 525, 213, 1759, 927, 6517, 1005, 21521, 54465 #### [facility] [address], [address] [place] [address] [facility] Christiano Rapp MD Glucose [Mass/Vol] 88 mg/dL Normal 65-99 [facility] Comment on above: Result Comment: Fasting reference interval Performed By: #### 8 525, 213, 1759, 927, 6517, 1005, 45302, 48185 #### [facility] [place] [address] [facility] Christiano Rapp MD Potassium [Moles/Vol] 3.9 mmol/L Normal 3.5-5.[address] [facility] Comment on above: Performed By: #### 8 525, 213, 1759, 927, 6517, 1005, 39231, 13839 #### [facility] [place] [address] [facility] Christiano Rapp MD Sodium [Moles/Vol] 141 mmol/L Normal 135-146 [facility] Comment on above: Performed By: #### 8 525, 213, 1759, 927, 6517, 1005, 19954, 69672 #### [facility] [place] [address] [facility] Christiano Rapp MD Urea nitrogen [Mass/Vol] 15 mg/dL Normal 7-25 [facility] Comment on above: Performed By: #### 8 525, 213, 1759, 927, 6517, 1005, 44394, 98020 #### [facility] [place] [address] [facility] Christiano Rapp MD Urea nitrogen/Creatinine [Mass ratio] 36 mg/mg High 6-22 [facility] Comment on above: Performed By: #### 8 525, 213, 1759, 927, 6517, 1005, 61651, 65031 #### [facility] [place] [address] [facility] Christiano Rapp MD CBC (H/H, RBC, INDICES, WBC, PLT)on 02-10-2025 Erythrocyte distribution width (RBC) [Ratio] 12.7 % Normal 11.0-15.0 [facility] Comment on above: Performed By: #### 8 525, 213, 1759, 927, 6517, 1005, 07494, 70946 #### [facility] [place] [address] [facility] Christiano Rapp MD Hematocrit (Bld) [Volume fraction] 47.9 % High 35.0-45.0 [facility] Comment on above: Performed By: #### 8 525, 213, 1759, 927, 6517, 1005, 41112, 73860 #### [facility] [address], [address] [place] [address] [facility] Christiano Rapp MD Hemoglobin (Bld) [Mass/Vol] 15.5 g/dL Normal 11.7-15.5 [facility] Comment on above: Performed By: #### 8 525, 213, 1759, 927, 6517, 1005, 53396, 48082 #### [facility] [place] [address] [facility] Christiano Rapp MD MCH (RBC) [Entitic mass] 33.7 pg High 27.0-33.0 [facility] Comment on above: Performed By: #### 8 525, 213, 1759, 927, 6517, 1005, 15144, 14316 #### [facility] [place] [address] [facility] Christiano Rapp MD MCHC (RBC) [Mass/Vol] 32.4 g/dL Normal 32.0-36.[address] [facility] Comment on above: Result Comment: For adults, a slight decrease in the calculated MCHC value (in the range of 30 to 32 g/dL) is most likely not clinically significant; however, it should be interpreted with caution in correlation with other red cell parameters and the patient's clinical condition. Performed By: #### 8 525, 213, 1759, 927, 6517, 1005, 70263, 58830 #### [facility] [place] [address] [facility] Christiano Rapp MD MCV (RBC) [Entitic vol] 104.1 fL High 80.0-100.0 [facility] Comment on above: Performed By: #### 8 525, 213, 1759, 927, 6517, 1005, 41075, 66179 #### [facility] [place] [address] [facility] Christiano Rapp MD Platelet mean volume (Bld) [Entitic vol] 10.7 fL Normal 7.5-12.5 [facility] Comment on above: Performed By: #### 8 525, 213, 1759, 927, 6517, 1005, 46067, 59848 #### [facility] [place] [address] [facility] Christiano Rapp MD Platelets (Bld) [#/Vol] 213 10*3/uL Normal 140-400 [facility] Comment on above: Performed By: #### 8 525, 213, 1759, 927, 6517, 1005, 38071, 69711 #### [facility] of [address], [address] [place] [address] [facility] Christiano Rapp MD RBC (Bld) [#/Vol] 4.60 10*6/uL Normal 3.80-5.10 [facility] Comment on above: Performed By: #### 8 525, 213, 1759, 927, 6517, 1005, 59478, 60347 #### [facility] [place] [address] [facility] Christiano Rapp MD WBC (Bld) [#/Vol] 8.3 10*3/uL Normal 3.8-10.8 [facility] Comment on above: Performed By: #### 8 525, 213, 1759, 927, 6517, 1005, 41097, 94388 #### [facility] [address], [address] [place] [address] [facility] Christiano Rapp MD IMMUNOFIXATION IGA,IGG,IGM Q T.IMMUNOFIXATION SERUM IMMUNOGLOBULINon 02-10-2025 FENG INTERPRETATION Normal [facility] Comment on above: Order Comment: 0; 0; 0; 0; 0; 0 FASTING:YES FASTING: YES Result Comment: IgG lambda monoclonal band present. A faint band in IgG [place] cannot be ruled out from the serum immunofixation electrophoresis pattern. Consider repeat of serum and/or urine immunofixation electrophoresis if clinically indicated. Performed By: #### 8 525, 213, 1759, 927, 6517, 1005, 02488, 51784 #### [facility] [address], [address] [place] [address] [facility] Christiano Rapp MD Result Comment: A fa int band of Sandwich light chain cannot be ruled out. Consider [...] 0 FASTING:YES FASTING: YES Performed By: #### 8 525, 213, 1759, 927, 6517, 1005, 87934, 51442 #### [facility] [address], [address] [place] [address] [facility] Christiano Rapp MD IMMUNOGLOBULIN G 1343 mg/dL Normal 600-1540 [facility] Comment on above: Order Comment: 0; 0; 0; 0; 0; 0 FASTING:YES FASTING: YES Performed By: #### 8 525, 213, 1759, 927, 6517, 1005, 01575, 43492 #### [facility] [place] [address] [facility] Christiano Rapp MD IMMUNOGLOBULIN M 178 mg/dL Normal 50-300 [facility] Comment on above: Order Comment: 0; 0; 0; 0; 0; 0 FASTING:YES FASTING: YES Performed By: #### 8 525, 213, 1759, 927, 6517, 1005, 80459, 30160 #### [facility] [place] [address] [facility] Christiano Rapp MD IMMUNOGLOBULINS A/E/G/M,SERU 02-10-2025 IMMUNOGLOBULIN A 386 mg/dL High 70-320 [facility] Comment on above: Order Comment: 0; 0F ASTING:YESFASTING: YES Performed By: #### 8 525, 213, 1759, 927, 6517, 1005, 79053, 95357 #### [facility] [place] [address] [facility] Christiano Rapp MD IMMUNOGLOBULIN E 18 kU/L Normal [facility] Comment on above: Order Comment: 0; 0F ASTING:YESFASTING: YES Performed By: #### 8 525, 213, 1759, 927, 6517, 1005, 16786, 70515 #### [facility] [place] [address] [facility] Christiano Rapp MD IMMUNOGLOBULIN G 1332 mg/dL Normal 600-1540 [facility] Comment on above: Order Comment: 0; 0F ASTING:YESFASTING: YES Performed By: #### 8 525, 213, 1759, 927, 6517, 1005, 49720, 65812 #### [facility] [place] [address] [facility] Christiano Rapp MD IMMUNOGLOBULIN M 181 mg/dL Normal 50-300 [facility] Comment on above: Order Comment: 0; 0F ASTING:YESFASTING: YES Performed By: #### 8 525, 213, 1759, 927, 6517, 1005, 92097, 41334 #### [facility] [place] [address] [facility] Christiano Rapp MD KAPPA/LAMBDA LIGHT CHAINS FR EE WITH RATIO, SERUMon 02-10-2025 KAPPA LIGHT CHAIN, FREE, SERUM 35.3 mg/L High 3.3-19.4 [facility] Comment on above: Performed By: #### 8 525, 213, 1759, 927, 6517, 1005, 48198, 15314 #### [facility] [place] [address] [facility] Christiano Rapp MD KAPPA/LAMBDA LIGHT CHAINS FREE [...] therapy of these disorders. Performed By: #### 8 525, 213, 1759, 927, 6517, 1005, 66139, 61183 #### [facility] [place] [address] [facility] Christiano Rapp MD LAMBDA LIGHT CHAIN, FREE, SERUM 32.2 mg/L High 5.7-26.3 [facility] Comment on above: Performed By: #### 8 525, 213, 1759, 927, 6517, 1005, 10592, 31160 #### [facility] [address], [address] [place] [address] [facility] Christiano Rapp MD PROTEIN, TOTAL AND PROTEIN E LECTROPHORESIS, RANDOM URINEon 02-10-2025 ALBUMIN 44 % Normal [facility] Comment on above: Performed By: #### 8 525, 213, 1759, 927, 6517, 1005, 39855, 28409 #### [facility] [address], [address] [place] [address] [facility] Christiano Rapp MD [id number] 5 % Normal [facility] Comment on above: Performed By: #### 8 525, 213, 1759, 927, 6517, 1005, 50071, 68713 #### [facility] [address], [address] [place] [address] [facility] Christiano Rapp MD [id number] 14 % Normal [facility] Comment on above: Performed By: #### 8 525, 213, 1759, 927, 6517, 1005, 04666, 47734 #### [facility] [address], [address] [place] [address] [facility] Christiano Rapp MD BETA GLOBULINS 15 % Normal [facility] Comment on above: Performed By: #### 8 525, 213, 1759, 927, 6517, 1005, 53265, 51372 #### [facility] [address], [address] [place] [address] [facility] Christiano aRpp MD GAMMA GLOBULINS 22 % Normal [facility] Comment on above: Performed By: #### 8 525, 213, 1759, 927, 6517, 1005, 66648, 04184 #### [facility] [address], [address] [place] [address] [facility] Christiano Rapp MD INTERPRETATION Normal [facility] Comment on above: Result Comment: Urin e protein electrophoresis reveals a faint band in the beta region that may indicate the presence of a monoclonal immunoglobulin. Suggest urine immunofixation electrophoresis if clinically indicated. Performed By: #### 8 525, 213, 1759, 927, 6517, 1005, 64789, 16081 #### [facility] [address], [address] [place] [address] [facility] Christiano Rapp MD Protein (U) [Mass/Vol] 29 mg/dL High 5-24 [facility] Comment on above: Performed By: #### 8 525, 213, 1759, 927, 6517, 1005, 65533, 32975 #### [facility] [address], [address] [place] [address] [facility] Christiano Rapp MD PROTEIN/CREATININE RATIO 221 mg/g creat High 24-184 [facility] Comment on above: Performed By: #### 8 525, 213, 1759, 927, 6517, 1005, 81995, 00335 #### [facility] [address], [address] [place] [address] [facility] Christiano Rapp MD PROTEIN/CREATININE RATIO 0.221 mg/mg creat High 0.024-0.18 4 [facility] Comment on above: Performed By: #### 8 525, 213, 1759, 927, 6517, 1005, 70200, 36445 #### [facility] [address], [address] [place] [address] [facility] Christiano Rapp MD TEST AUTHORIZATIONon 025 CLIENT CONTACT: GERRY MIN Normal [facility] Comment on above: Performed By: #### 8 525, 213, 1759, 927, 6517, 1005, 99111, 68327 #### [facility] [address], [address] [place] [address] [facility] Christiano Rapp MD COMMENT Normal [facility] Comment on above: Result Comment: Plea se have the ordering physician or his or her authorized payable representative sign a copy of this report and promptly return it by faxing it to: [phone] or by returning the form to your blow torch operator. Performed By: #### 8 525, 213, 1759, 927, 6517, 1005, 91361, 61695 #### [facility] [address], [address] [place] [address] [facility] Christiano Rapp MD REPORT ALWAYS MESSAGE SIGNATURE Normal [facility] Comment on above: Result Comment: The laboratory testing on this patient was verbally requested or confirmed by the ordering physician or his or her authorized payable representative after contact with an employee of [employer]. Federal regulations require that we maintain on file written authorization for all laboratory testing. Accordingly we are asking that the ordering physician or his or her authorized payable representative sign a copy of this report and promptly return it to the private client advisor. Signature: Performed By: #### 8 525, 213, 1759, 927, 6517, 1005, 40141, 03152 #### [facility] [address], [address] [place] [address] [facility] Christiano Rapp MD TEST CODE: 927SB Normal [facility] Comment on above: Performed By: #### 8 525, 213, 1759, 927, 6517, 1005, 11695, 51558 #### [facility] [address], [address] [place] [address] [facility] Christiano Rapp MD TEST NAME: VITAMIN B12 Normal [facility] Comment on above: Performed By: #### 8 525, 213, 1759, 927, 6517, 1005, 10442, 14583 #### [facility] [address], [address] [place] [address] [facility] Christiano Rapp MD VITAMIN B12on 02-10-2025 Cobalamin (Vitamin B12) [Mass/Vol] 502 pg/mL Normal 200-1100 [facility] Comment on above: Performed By: #### 8 525, 213, 1759, 927, 6517, 1005, 50320, 61138 #### [facility] [address], [address] [place] [address] [facility] Christiano Rapp MD 36on 01-31-2025 36 Name of caller: Shanna brewer ([facility]) Contact phone number: [phone] Relationship to Patient: na Provider: Dr. Guthrie Practice: [facility] Chief Complaint/Reason for Call: Calling to advise after several attempts to contact Pt for OT appt this week. Kaye was unable to reach patient for visit. Please advise Best time of day caller can be reached: Any AM Patient advised that office/PCP has 24-48 business hours to return their call: N/A [facility] 36on 01-28-2025 36 ----- Message from LAVELLE Polo [...] workup once completed. ----- Message ----- From: zhiwo Felicita UserAnastasiia Sent: 01/23/2025 7:22 PM EDT To: LAVELLE Andrews CNP [facility] 37on 01-23-2025 37 Call [phone] to schedule your bone density test [facility] Office Visiton 01-23-2025 Follow-up visit [id number] Kelsey Rosales 1940 F Date Provider Department Center 01/23/2025 [id number] [facility] None Family History Adopted: Yes Problem Relation Age of Onset Chronic bronchitis Mother Emphysema Mother Family Status - Relation Status Age at Mother Level of Service:[id number] [place] OFFICE/OUTPATIENT NEW LOW MDM 30 MINUTES Reason for Visit and Comments: Osteoporosis [2023033123] Normal [facility] Progress Noteon 01-23-2025 Progress Note [facility] - [address] [facility] [address] Dept: [phone] Dept Loc: [phone] Visit type: New patient Reason for Visit: [...] the following: Adequate dietary calcium intake of 3633-9194 mg per day through diet and/or supplements. Vitamin D3 7864-2273 IU daily. Participate in weight bearing exercises. [...] daily, chees (more content not included)... Normal [facility] [facility] Protein, totalon 01-23-2025 Interpretation and review of laboratory results Normal [employer] Protein [Mass/Vol] 6.5 g/dL 6.4 - 8.3 g/dL [employer] Comment on above: Serum protein values are higher than plasma values. Samples from recumbent persons are lower by up to 0.5 g/dL as compared to ambulatory persons. After 60 years values are lower by up to 0.2 g/dL. [facility] SERUM ELECTROPHORESISon Albumin [Mass/Vol] 3.5 g/dL Normal 3.1-4.8 [facility] Comment on above: Order Comment: This order contains result documents that were not sent. The result might be incomplete.THIS IS A CARVE-OUT LAB: SPECIMEN MUST BE SENT TO [facility] FOR PROCESSING Performed By: #### L [id number] ####[facility] ANGELICA LUZ ([id number])[facility])[address] [place] [address] ALPHA 1 0.2 g/dL Normal 0.2-0.4 [facility] Comment on above: Order Comment: This order contains result documents that were not sent. The result might be incomplete.THIS IS A CARVE-OUT LAB: SPECIMEN MUST BE SENT TO [facility] FOR PROCESSING Performed By: #### L [id number] ####[facility] ANGELICA LUZ ([id number])[address] ALPHA 2 0.6 g/dL Normal 0.6-1.0 [facility] Comment on above: Order Comment: This order contains result documents that were not sent. The result might be incomplete.THIS IS A CARVE-OUT LAB: SPECIMEN MUST BE SENT TO [facility] FOR PROCESSING Performed By: #### L [id number] ####[facility] ANGELICA LUZ ([id number])[facility])[address] [place] [address] [place] BETA 1 0.4 g/dl Normal 0.3-0.6 [facility] Comment on above: Order Comment: This order contains result documents that were not sent. The result might be incomplete.THIS IS A CARVE-OUT LAB: SPECIMEN MUST BE SENT TO [facility] FOR PROCESSING Performed By: #### L [id number] ####[facility]: ANGELICA [id number])[facility])[address] [place] [address] [place] BETA 2 0.4 g/dl Normal 0.3-0.5 [facility] Comment on above: Order Comment: This order contains result documents that were not sent. The result might be incomplete.THIS IS A CARVE-OUT LAB: SPECIMEN MUST BE SENT TO [facility] FOR PROCESSING Performed By: #### L [id number] ####[facility] ANGELICA LUZ ([id number])[facility])[address] [place] [address] GAMMA GLOBULIN 1.4 g/dL Normal 0.4-1.4 [facility] Comment on above: Order Comment: This order contains result documents that were not sent. The result might be incomplete.THIS IS A CARVE-OUT LAB: SPECIMEN MUST BE SENT TO [facility] FOR PROCESSING Performed By: #### L [id number] ####[facility] ANGELICA LUZ ([id number])[address] PROTEIN FRACTION (INTERPRETATION) IN SER/PLAS BY ELECTROPHORESIS See Below Normal [facility] Comment on above: Order Comment: This order contains result documents that were not sent. The result might be incomplete.THIS IS A CARVE-OUT LAB: SPECIMEN MUST BE SENT TO [facility] FOR PROCESSING Result Comment: Dist inct band present in the gamma region. The band has a concentration of 0.40 g/dL. See FENG for additional information. Performed By: #### L [id number] ####[facility] ANGELICA LUZ ([id number])[address] RELEASED BY Angelica Luz M.D. Normal [facility] Comment on above: Order Comment: This order contains result documents that were not sent. The result might be incomplete.THIS IS A CARVE-OUT LAB: SPECIMEN MUST BE SENT TO [facility] FOR PROCESSING Result Comment: This is an appended report. These results have been appended to a previously preliminary verified report. Performed By: #### L [id number] ####[facility] ANGELICA LUZ ([id number])[address] REVIEWED BY Steven BryantB.S., Ph.D. Normal [facility] Comment on above: Order Comment: This order contains result documents that were not sent. The result might be incomplete.THIS IS A CARVE-OUT LAB: SPECIMEN MUST BE SENT TO [facility] FOR PROCESSING Performed By: #### L [id number] ####[facility]: ANGELICA LUZ ([id number])[facility] ([facility])[address] [place] [address] TOTAL PROTEIN (SERUM PROTEIN ELECTROPHORESIS)on 01-23-2025 Protein [Mass/Vol] 6.5 g/dL Normal 6.4-8.3 [facility] Comment on above: Order Comment: THIS IS A CARVE-OUT LAB: SPECIMEN MUST BE SENT TO [facility] FOR PROCESSING Result Comment: Seru m protein values are higher than plasma values. Samples from recumbent persons are lower by up to 0.5 g/dL as compared to ambulatory persons. After 60 years values are lower by up to 0.2 g/dL. Performed By: #### L [id number] ####[facility]: ANGELICA LUZ ([id number])[facility] ([facility])[address] [place] [address] Lumbar Spine 2 or 3 Viewson 01-14-2025 Lumbar Spine 2 or 3 Views Normal [facility] Orthopedic Visit Reporton Orthopedic Visit Report Normal [facility] CARDIO IQ(R) NT PROBNPon Natriuretic peptide B (Bld) [Mass/Vol] 2733 pg/mL High <450 [facility] Comment on above: Performed By: #### 8 525, 213, 1759, 927, 6517, 1005, 33627, 45166 #### [facility] [address], [address] [place] [id number] [facility] Christiano Rapp MD CBC (H/H, RBC, INDICES, WBC, PLT)on 01-13-2025 Erythrocyte distribution width (RBC) [Ratio] 13.9 % Normal 11.0-15.0 [facility] Comment on above: Performed By: #### 8 525, 213, 1759, 927, 6517, 1005, 15985, 21847 #### [facility] [place] [address] [facility] Christiano Rapp MD Hematocrit (Bld) [Volume fraction] 41.0 % Normal 35.0-45.0 [facility] Comment on above: Performed By: #### 8 525, 213, 1759, 927, 6517, 1005, 20073, 09231 #### [facility] [place] [address] [facility] Christiano Rapp MD Hemoglobin (Bld) [Mass/Vol] 13.4 g/dL Normal 11.7-15.5 [facility] Comment on above: Performed By: #### 8 525, 213, 1759, 927, 6517, 1005, 86808, 78354 #### [facility] [place] [address] [facility] Christiano Rapp MD MCH (RBC) [Entitic mass] 33.4 pg High 27.0-33.0 [facility] Comment on above: Performed By: #### 8 525, 213, 1759, 927, 6517, 1005, 93693, 97293 #### [facility] [place] [address] [facility] Christiano Rapp MD MCHC (RBC) [Mass/Vol] 32.7 g/dL Normal 32.0-36.[address] [facility] Comment on above: Result Comment: For adults, a slight decrease in the calculated MCHC value (in the range of 30 to 32 g/dL) is most likely not clinically significant; however, it should be interpreted with caution in correlation with other red cell parameters and the patient's clinical condition. Performed By: #### 8 525, 213, 1759, 927, 6517, 1005, 10937, 52289 #### [facility] [place] [address] [facility] Christiano Rapp MD MCV (RBC) [Entitic vol] 102.2 fL High 80.0-100.0 [facility] Comment on above: Performed By: #### 8 525, 213, 1759, 927, 6517, 1005, 39936, 31645 #### [facility] of [address], [address] [place] [address] [facility] Christiano Rapp MD Platelet mean volume (Bld) [Entitic vol] 10.9 fL Normal 7.5-12.5 [facility] Comment on above: Performed By: #### 8 525, 213, 1759, 927, 6517, 1005, 69124, 56352 #### [facility] of [address], [address] [place] [address] [facility] Christiano Rapp MD Platelets (Bld) [#/Vol] 255 10*3/uL Normal 140-400 [facility] Comment on above: Performed By: #### 8 525, 213, 1759, 927, 6517, 1005, 47370, 09772 #### [facility] of [address], [address] [place] [address] [facility] Christiano Rapp MD RBC (Bld) [#/Vol] 4.01 10*6/uL Normal 3.80-5.10 [facility] Comment on above: Performed By: #### 8 525, 213, 1759, 927, 6517, 1005, 54754, 16552 #### [facility] of [address], [address] [place] [address] [facility] Christiano Rapp MD WBC (Bld) [#/Vol] 8.1 10*3/uL Normal 3.8-10.8 [facility] Comment on above: Performed By: #### 8 525, 213, 1759, 927, 6517, 1005, 50038, 84058 #### [facility] of [place] [address] [facility] Christiano Rapp MD CBC W/Diff, Automatedon 05- PATH REV N/A Normal [facility] Comment on above: Result Comment: AMENDED REPORT 01/13/25 1536 PATH REV previously reported as: May foll Performed By: #### L 100.0100, L501.2450, L500.4050, L501.2300, L501.5200 ####[facility] [address] [place], [address] PATH REV N/A Normal [facility] Comment on above: Result Comment: AMENDED REPORT 01/13/25 1534 PATH REV previously reported as: December foll Performed By: #### L 100.0100, L501.9520, L500.4050, L300.3900 ####[facility] [address] [place], [address] COMPREHENSIVE METABOLIC PANE [facility] 01-13-2025 Albumin [Mass/Vol] 3.3 g/dL Low 3.6-5.1 [facility] Comment on above: Order Comment: 0; 0; 0; 0; 0; 0 FASTING:YES FASTING: YES Performed By: #### 8 525, 213, 1759, 927, 6517, 1005, 74585, 35946 #### [facility] [address] [facility] Christiano Rapp MD Albumin/Globulin [Mass ratio] 1.2 {ratio} Normal 1.0-2.5 [facility] Comment on above: Order Comment: 0; 0; 0; 0; 0; 0 FASTING:YES FASTING: YES Performed By: #### 8 525, 213, 1759, 927, 6517, 1005, 57326, 19343 #### [facility] [address], [address] [place], [place] [address] [facility] Christiano Rapp MD ALP [Catalytic activity/Vol] 105 U/L Normal 37-153 [facility] Comment on above: Order Comment: 0; 0; 0; 0; 0; 0 FASTING:YES FASTING: YES Performed By: #### 8 525, 213, 1759, 927, 6517, 1005, 18485, 67829 #### [facility] of [place] [address] [address] [facility] Christiano Rapp MD ALT [Catalytic activity/Vol] 9 U/L Normal 6-29 [facility] Comment on above: Order Comment: 0; 0; 0; 0; 0; 0 FASTING:YES FASTING: YES Performed By: #### 8 525, 213, 1759, 927, 6517, 1005, 89919, 39702 #### [facility] [place] [address] [facility] Christiano Rapp MD AST [Catalytic activity/Vol] 18 U/L Normal 10-35 [facility] Comment on above: Order Comment: 0; 0; 0; 0; 0; 0 FASTING:YES FASTING: YES Performed By: #### 8 525, 213, 1759, 927, 6517, 1005, 72455, 25111 #### [facility] [place] [address] [facility] Christiano Rapp MD Bilirubin [Mass/Vol] 0.8 mg/dL Normal 0.2-1.2 [facility] Comment on above: Order Comment: 0; 0; 0; 0; 0; 0 FASTING:YES FASTING: YES Performed By: #### 8 525, 213, 1759, 927, 6517, 1005, 55951, 87650 #### [facility] [place] [address] [facility] Christiano Rapp MD Calcium [Mass/Vol] 9.1 mg/dL Normal 8.6-10.4 [facility] Comment on above: Order Comment: 0; 0; 0; 0; 0; 0 FASTING:YES FASTING: YES Performed By: #### 8 525, 213, 1759, 927, 6517, 1005, 42308, 48375 #### [facility] [place] [address] [facility] Christiano Rapp MD Chloride [Moles/Vol] 103 mmol/L Normal 98-110 [facility] Comment on above: Order Comment: 0; 0; 0; 0; 0; 0 FASTING:YES FASTING: YES Performed By: #### 8 525, 213, 1759, 927, 6517, 1005, 76635, 76987 #### [facility] [address], [address] [place] [address] [facility] Christiano Rapp MD CO2 [Moles/Vol] 32 mmol/L Normal 20-32 [facility] Comment on above: Order Comment: 0; 0; 0; 0; 0; 0 FASTING:YES FASTING: YES Performed By: #### 8 525, 213, 1759, 927, 6517, 1005, 39738, 70382 #### [facility] [address], [address] [place] [address] [facility] Christiano Rapp MD Creatinine [Mass/Vol] 0.44 mg/dL Low 0.60-0.[address] [facility] Comment on above: Order Comment: 0; 0; 0; 0; 0; 0 FASTING:YES FASTING: YES Performed By: #### 8 525, 213, 1759, 927, 6517, 1005, 34436, 47901 #### [facility] [address], [address] [place] [address] [facility] Christiano Rapp MD GFR/1.73 sq M.predicted among non-blacks MDRD (S/P/Bld) [Vol rate/Area] 96 mL/min/{1.73_m2} Normal > OR = 60 [facility] Comment on above: Order Comment: 0; 0; 0; 0; 0; 0 FASTING:YES FASTING: YES Performed By: #### 8 525, 213, 1759, 927, 6517, 1005, 57292, 38792 #### [facility] [address], [address] [place] [address] [facility] Christiano Rapp MD Globulin (S) [Mass/Vol] 2.7 g/dL Normal 1.9-3.7 [facility] Comment on above: Order Comment: 0; 0; 0; 0; 0; 0 FASTING:YES FASTING: YES Performed By: #### 8 525, 213, 1759, 927, 6517, 1005, 68794, 97069 #### [facility] [place] [address] [facility] Christiano Rapp MD Glucose [Mass/Vol] 76 mg/dL Normal 65-99 [facility] Comment on above: Order Comment: 0; 0; 0; 0; 0; 0 FASTING:YES FASTING: YES Result Comment: Fasting reference interval Performed By: #### 8 525, 213, 1759, 927, 6517, 1005, 24505, 34164 #### [facility] [address], [address] [place] [address] [facility] Christiano Rapp MD Potassium [Moles/Vol] 4.2 mmol/L Normal 3.5-5.3 [facility] Comment on above: Order Comment: 0; 0; 0; 0; 0; 0 FASTING:YES FASTING: YES Performed By: #### 8 525, 213, 1759, 927, 6517, 1005, 81298, 63312 #### [facility] [place] [address] [facility] Christiano Rapp MD Protein [Mass/Vol] 6.0 g/dL Low 6.1-8.1 [facility] Comment on above: Order Comment: 0; 0; 0; 0; 0; 0 FASTING:YES FASTING: YES Performed By: #### 8 525, 213, 1759, 927, 6517, 1005, 22430, 56386 #### [facility] [place] [address] [facility] Christiano Rapp MD Sodium [Moles/Vol] 141 mmol/L Normal 135-146 [facility] Comment on above: Order Comment: 0; 0; 0; 0; 0; 0 FASTING:YES FASTING: YES Performed By: #### 8 525, 213, 1759, 927, 6517, 1005, 82891, 87670 #### [facility] [address], [address] [place] [address] [facility] Christiano Rapp MD Urea nitrogen [Mass/Vol] 17 mg/dL Normal 7- [facility] Comment on above: Order Comment: 0; 0; 0; 0; 0; 0 FASTING:YES FASTING: YES Performed By: #### 8 525, 213, 1759, 927, 6517, 1005, 57278, 42062 #### [facility] [address], [address] [place] [address] [facility] Christiano Rapp MD Urea nitrogen/Creatinine [Mass ratio] 39 mg/mg High 6- [facility] Comment on above: Order Comment: 0; 0; 0; 0; 0; 0 FASTING:YES FASTING: YES Performed By: #### 8 525, 213, 1759, 927, 6517, 1005, 60825, 85079 #### [facility] [address], [address] [place] [address] [facility] Christiano Rapp MD TEST AUTHORIZATIONon 025 CLIENT CONTACT: RAUL MIN Normal [facility] Comment on above: Performed By: #### 8 525, 213, 1759, 927, 6517, 1005, 31692, 03031 #### [facility] [address], [address] [place] [address] [facility]o Rapp MD COMMENT Normal [facility] Comment on above: Result Comment: Plea se have the ordering physician or his or her authorized payable representative sign a copy of this report and promptly return it by faxing it to: [phone] or by returning the form to your blow torch operator. Performed By: #### 8 525, 213, 1759, 927, 6517, 1005, 20932, 45395 #### [facility] [address], [address] [place] [address] [facility] Christiano Rapp MD REPORT ALWAYS MESSAGE SIGNATURE Normal [facility] Comment on above: Result Comment: The laboratory testing on this patient was verbally requested or confirmed by the ordering physician or his or her authorized payable representative after contact with an employee of [employer]. Federal regulations require that we maintain on file written authorization for all laboratory testing. Accordingly we are asking that the ordering physician or his or her authorized payable representative sign a copy of this report and promptly return it to the private client advisor. Signature: Performed By: #### 8 525, 213, 1759, 927, 6517, 1005, 73111, 72726 #### [facility] [address], [address] [place] [address] [facility] Christiano Rapp MD TEST CODE: [id number] Normal [facility] Comment on above: Performed By: #### 8 525, 213, 1759, 927, 6517, 1005, 54244, 84295 #### [facility] [address], [address] [place] [address] [facility] Christiano Rapp MD TEST NAME: VITAMIN B12/FOLATE, Normal [facility] Comment on above: Performed By: #### 8 525, 213, 1759, 927, 6517, 1005, 27196, 33637 #### [facility] [place] [address] [facility] Christiano Rapp MD VITAMIN B12/FOLATE, SERUM [facility] 01-13-2025 Cobalamin (Vitamin B12) [Mass/Vol] 515 pg/mL Normal 200-1100 [facility] Comment on above: Performed By: #### 8 525, 213, 1759, 927, 6517, 1005, 56786, 64471 #### [facility] [address], [address] [place] [address] [facility] Christiano Rapp MD Folate [Mass/Vol] 20.7 ng/mL Normal [facility] Comment on above: Result Comment: Refe rence Range Low: <3.4 Borderline: 3.4-5.4 Normal: >5.4 Performed By: #### 8 525, 213, 1759, 927, 6517, 1005, 59408, 28504 #### [facility] [address], [address] [place] [address] [facility] Christiano Rapp MD CBC W/Diff, Automatedon - PATH REV Reviewed Normal [facility] Comment on above: Result Comment: SEE REPORT IN PATIENT'S EMR AMENDED REPORT 01/09/25 1025 PATH REV previously reported as: December Performed By: #### L 503.6005, L100.0100, L500.4050, L501.4021, L503.7505 ####[facility] [address] [place], [address] Discharge Instructionon 12-19 Discharge Instruction Normal [facility] CNPNon 12-31-2024 CNPN Telephone (HCSIND) -- LESLI ROSALES ([id number]) 1940 F Date Time Provider Department 12/31/24 MARTY GUTHRIE HCSIND During your visit today, we recorded the following information about you: Ana Rush LPN 12/31/2024 3:[address] Marty Guthrie's office to inquire if physician will follow/sign for [facility]. Spoke with Gerry who confirmed MD will follow for [facility] orders. Allergies As of Date: 12/31/2024 (No Known Allergies) Date Reviewed: 10/03/2024 Reviewed by: Juni Sauceda RN - Fully Assessed Reason for Visit: Home Care [2553] Cmt: to follow Prescriptions as of 12/31/2024 - [...] Status:Closed by ANA RUSH on 12/31/[address] [facility] Decalcification bone/plaqueo n 12-30-2024 Decalcification bone/plaque Normal [facility] Comment on above: Performed By: #### P DEC ####[facility] [address] [place], [address] Lumbar Spine 2 or 3 Viewson 12-30-2024 Lumbar Spine 2 or 3 Views Normal [facility] MR/POSTOP.ANEon 12-30-2024 MR/POSTOP.ANE Normal [facility] MR/[id number] 12-30-2024 MR/POSTOPAN2 Normal [facility] Operative Reporton Operative Report Normal [facility] Anion gap in Serum or Plasma Ordered By: Sveta Macias on 12-29-2024 Anion gap [Moles/Vol] 5 mmol/L 01-02 [facility] BUN/creatinine ratioOrdered By: Sveta Macias on 12-29-2024 Urea nitrogen/Creatinine [Mass ratio] 42.2 mg/mg High 06-09 [facility] Basic Metabolic Profile (BMP )on 12-29-2024 BUN/CRE 42.2 RATIO High [facility] Comment on above: Performed By: #### L 500.2500, L100.0500 ####[facility] [address] [place], [address] Calcium [Mass/Vol] 9.0 mg/dL Normal 7.6-11.0 [facility] Comment on above: Performed By: #### L 500.2500, L100.0500 ####[facility] [address] [place], [address] Chloride [Moles/Vol] 106 mmol/L Normal 98-108 [facility] Comment on above: Performed By: #### L 500.2500, L100.0500 ####[facility] [address] [place], [address] CO2 [Moles/Vol] 29.9 mmol/L Normal 21.0-32.0 [facility] Comment on above: Performed By: #### L 500.2500, L100.0500 ####[facility] [address] [place], [address] Creatinine [Mass/Vol] 0.37 mg/dL Low 0.70-1.20 [facility] Comment on above: Performed By: #### L 500.2500, L100.0500 ####[facility] [address] [place], [address] ECRCL 44.80 ml/min Low 50-250 [facility] Comment on above: Performed By: #### L 500.2500, L100.0500 ####[facility] [address] [place], [address] GAP 5 Normal 5-15 [facility] Comment on above: Performed By: #### L 500.2500, L100.0500 ####[facility] [address] [place], [address] GFR/1.73 sq M.predicted among non-blacks MDRD (S/P/Bld) [Vol rate/Area] 100 mL/min/{1.73_m2} Normal >60 [facility] Comment on above: Result Comment: mL/m in/1.73m2 CKD-EPI Creatinine Equation (2020) Performed By: #### L 500.2500, L100.0500 ####[facility] [address] [place], [address] Glucose [Mass/Vol] 76 mg/dL Normal 70-99 [facility] Comment on above: Performed By: #### L 500.2500, L100.0500 ####[facility] [address] [place], [address] Potassium [Moles/Vol] 4.3 mmol/L Normal 3.3-5.1 [facility] Comment on above: Performed By: #### L 500.2500, L100.0500 ####[facility] [address] [place], [address] Sodium [Moles/Vol] 141 mmol/L Normal 133-145 [facility] Comment on above: Performed By: #### L 500.2500, L100.0500 ####[facility] [address] [place], [address] Urea nitrogen [Mass/Vol] 15 mg/dL Normal 4-19 [facility] Comment on above: Performed By: #### L 500.2500, L100.0500 ####[facility] [address] [place], [address] CBC-Complete Blood Cnt No Di ffon 12-29-2024 Erythrocyte distribution width (RBC) [Ratio] 14.4 % Normal 11.6-14.6 [facility] Comment on above: Performed By: #### L 500.2500, L100.0500 ####[facility] [address] [place], [address] Hematocrit (Bld) [Volume fraction] 38.1 % Normal 37-47 [facility] Comment on above: Performed By: #### L 500.2500, L100.0500 ####[facility] [address] [place], [address] Hemoglobin (Bld) [Mass/Vol] 12.2 g/dL Normal 12.0-15.0 [facility] Comment on above: Performed By: #### L 500.2500, L100.0500 ####[facility] [address] [place], [address] MCH (RBC) [Entitic mass] 32.4 pg High 27.0-32.0 [facility] Comment on above: Performed By: #### L 500.2500, L100.0500 ####[facility] [address] [place], [address] MCHC (RBC) [Mass/Vol] 32.0 g/dL Normal 32-36 [facility] Comment on above: Performed By: #### L 500.2500, L100.0500 ####[facility] [address] [place], [address] MCV (RBC) [Entitic vol] 101.3 fL High 81-99 [facility] Comment on above: Performed By: #### L 500.2500, L100.0500 ####[facility] [address] [place], [address] Platelet mean volume (Bld) [Entitic vol] 10.5 fL Normal 6.2-12.0 [facility] Comment on above: Performed By: #### L 500.2500, L100.0500 ####[facility] [address] [place], [address] Platelets (Bld) [#/Vol] 141 10*3/uL Low 150-450 [facility] Comment on above: Performed By: #### L 500.2500, L100.0500 ####[facility] [address] [place], [address] RBC (Bld) [#/Vol] 3.76 10*6/uL Low 4.2-5.4 [facility] Comment on above: Performed By: #### L 500.2500, L100.0500 ####[facility] [address] [place], [address] RDW SD 53.4 fl High 35.1-43.9 [facility] Comment on above: Performed By: #### L 500.2500, L100.0500 ####[facility] [address] [place], [address] WBC (Bld) [#/Vol] 7.2 10*3/uL Normal 4.4-11.0 [facility] Comment on above: Performed By: #### L 500.2500, L100.0500 ####[facility] [address] [place], [address] Carbon dioxide, total [Moles /volume] in Central venous bloodOrdered By: Sveta Macias on 12-29-2024 CO2 [Moles/Vol] 29.9 mmol/L 21.0-32.0 [facility] Chloride assayOrdered By: Zena Macias on 12-29-2024 Chloride [Moles/Vol] 106 mmol/L 98-108 [facility] Erythrocyte distribution wid th ratioOrdered By: Sveta Macias on 12-29-2024 Erythrocyte distribution width (RBC) [Ratio] 14.4 % 11.6-14.6 [facility] Erythrocyte distribution wid th standard deviationOrdered By: Sveta Macias on 12-29-2024 Erythrocyte distribution width (RBC) [Ratio] 53.4 fl High 35.1-43.9 [facility] Glomerular filtration rate ( GFR) estimation/1.73 sq m using serum, plasma, or whole bOrdered By: Sveta Macias on 12-29-2024 GFR/1.73 sq M.predicted among non-blacks MDRD (S/P/Bld) [Vol rate/Area] 100 mL/min/{1.73_m2} >60 [facility] Comment on above: mL/min/1.73m2 CKD-EP I Creatinine Equation (2020) Hematocrit Auto (Bld) [Volum e fraction]Ordered By: Sveta Macias on 12-29-2024 Hematocrit (Bld) [Volume fraction] 38.1 % 37-47 [facility] Hemoglobin measurementOrdere d By: Sveta Macias on 12-29-2024 Hemoglobin (Bld) [Mass/Vol] 12.2 g/dL 12.0-15.0 [facility] MCV (mean corpuscular volume ) determinationOrdered By: Sveta Macias on 12-29-2024 MCV (RBC) [Entitic vol] 101.3 fL High 81-99 [facility] Mean corpuscular hemoglobin (MCH) determinationOrdered By: Sveta Macias on 12-29-2024 MCH (RBC) [Entitic mass] 32.4 pg High 27.0-32.0 [facility] Mean corpuscular hemoglobin concentration (MCHC) determinationOrdered By: Sveta Macias on 12-29-2024 MCHC (RBC) [Mass/Vol] 32.0 g/dL 32-36 [facility] Mean platelet volume determi nationOrdered By: Sveta Macias on 12-29-2024 Platelet mean volume (Bld) [Entitic vol] 10.5 fL 6.2-12.0 [facility] Platelet countOrdered By: Zena Macias on 12-29-2024 Platelets (Bld) [#/Vol] 141 10*3/uL Low 150-450 [facility] Potassium measurement (mass/ volume)Ordered By: Sveta Macias on 12-29-2024 Potassium (Unsp spec) [Mass/Vol] 4.3 mmol/L 3.3-5.1 [facility] RBC Auto (Bld) [#/Vol]Ordere d By: Sveta Macias on 12-29-2024 RBC (Bld) [#/Vol] 3.76 10*6/uL Low 4.2-5.4 [facility] Serum creatinine measurement (mass/volume)Ordered By: Sveta Macias on 12-29-2024 Creatinine [Mass/Vol] 0.37 mg/dL Low 0.70-1.20 [facility] Serum glucose measurement (m ass/volume)Ordered By: Sveta Macias on 12-29-2024 Glucose [Mass/Vol] 76 mg/dL 70-99 [facility] Serum or plasma calcium azael urement (mass/volume)Ordered By: Sveta Macias on 12-29-2024 Calcium [Mass/Vol] 9.0 mg/dL 7.6-11.0 [facility] Serum or plasma urea nitroge n measurement (mass/volume)Ordered By: Sveta Macias on 12-29-2024 Urea nitrogen [Mass/Vol] 15 mg/dL 4-19 [facility] Sodium levelOrdered By: Rakel Macias on 12-29-2024 Sodium [Moles/Vol] 141 mmol/L 133-145 [facility] White blood cell (WBC) count Ordered By: Sveta Macias on 12-29-2024 WBC (Bld) [#/Vol] 7.2 10*3/uL 4.4-11.0 [facility] Bedside Glucoseon 12-28-2024 FINGERSTICK GLU 116 mg/dL High 74-106 [facility] Comment on above: Result Comment: AJIT WARDENT OF PATIENT CARE PER NURSING PROTOCOL Performed By: #### L 501.080 ####[facility] [address] [place], [address] Glucose measurement at bedsi deOrdered By: Sveta Macias on 12-28-2024 Glucose [Mass/Vol] 116 mg/dL High 74-106 [facility] Comment on above: MANAGEMENT OF PATIEN T CARE PER NURSING PROTOCOL Basic Metabolic Profile (BMP )on 12-27-2024 BUN/CRE 57.5 RATIO High 10-20 [facility] Comment on above: Performed By: #### L 100.0500, L500.2500 ####[facility] [address] [place], [address] Calcium [Mass/Vol] 8.7 mg/dL Normal 7.6-11.0 [facility] Comment on above: Performed By: #### L 100.0500, L500.2500 ####[facility] [address] [place], [address] Chloride [Moles/Vol] 109 mmol/L High 98-108 [facility] Comment on above: Performed By: #### L 100.0500, L500.2500 ####[facility] [address] [place], [address] CO2 [Moles/Vol] 28.4 mmol/L Normal 21.0-32.0 [facility] Comment on above: Performed By: #### L 100.0500, L500.2500 ####[facility] [address] [place], [address] Creatinine [Mass/Vol] 0.39 mg/dL Low 0.70-1.20 [facility] Comment on above: Performed By: #### L 100.0500, L500.2500 ####[facility] [address] [place], [address] ECRCL 44.90 ml/min Low 50-250 [facility] Comment on above: Performed By: #### L 100.0500, L500.2500 ####[facility] [address] [place], [address] GAP 4 Low 5-15 [facility] Comment on above: Performed By: #### L 100.0500, L500.2500 ####[facility] [address] [place], [address] GFR/1.73 sq M.predicted among non-blacks MDRD (S/P/Bld) [Vol rate/Area] 99 mL/min/{1.73_m2} Normal >60 [facility] Comment on above: Result Comment: mL/m in/1.73m2 CKD-EPI Creatinine Equation (2020) Performed By: #### L 100.0500, L500.2500 ####[facility] [address] [place], [address] Glucose [Mass/Vol] 73 mg/dL Normal 70-99 [facility] Comment on above: Performed By: #### L 100.0500, L500.2500 ####[facility] [address] [place], [address] Potassium [Moles/Vol] 4.1 mmol/L Normal 3.3-5.1 [facility] Comment on above: Performed By: #### L 100.0500, L500.2500 ####[facility] [address] [place], [address] Sodium [Moles/Vol] 142 mmol/L Normal 133-145 [facility] Comment on above: Performed By: #### L 100.0500, L500.2500 ####[facility] [address] [place], [address] Urea nitrogen [Mass/Vol] 22 mg/dL High 4-19 [facility] Comment on above: Performed By: #### L 100.0500, L500.2500 ####[facility] [address] [place], [address] Bedside Glucoseon 12-27-2024 FINGERSTICK GLU 134 mg/dL High 74-106 [facility] Comment on above: Result Comment: AJIT ARMENDARIZ OF PATIENT CARE PER NURSING PROTOCOL Performed By: #### L 501.080 ####[facility] [address] [place], [address] CBC-Complete Blood Cnt No Di ffon 12-27-2024 Erythrocyte distribution width (RBC) [Ratio] 13.9 % Normal 11.6-14.6 [facility] Comment on above: Performed By: #### L 100.0500, L500.2500 ####[facility] [address] [place], [address] Hematocrit (Bld) [Volume fraction] 37.9 % Normal 37-47 [facility] Comment on above: Performed By: #### L 100.0500, L500.2500 ####[facility] [address] [place], [address] Hemoglobin (Bld) [Mass/Vol] 12.1 g/dL Normal 12.0-15.0 [facility] Comment on above: Performed By: #### L 100.0500, L500.2500 ####[facility] [address] [place], [address] MCH (RBC) [Entitic mass] 32.4 pg High 27.0-32.0 [facility] Comment on above: Performed By: #### L 100.0500, L500.2500 ####[facility] [address] [place], [address] MCHC (RBC) [Mass/Vol] 31.9 g/dL Low 32-36 [facility] Comment on above: Performed By: #### L 100.0500, L500.2500 ####[facility] [address] [place], [address] MCV (RBC) [Entitic vol] 101.6 fL High 81-99 [facility] Comment on above: Performed By: #### L 100.0500, L500.2500 ####[facility] [address] [place], [address] Platelet mean volume (Bld) [Entitic vol] 10.4 fL Normal 6.2-12.0 [facility] Comment on above: Performed By: #### L 100.0500, L500.2500 ####[facility] [address] [place], [address] Platelets (Bld) [#/Vol] 152 10*3/uL Normal 150-450 [facility] Comment on above: Performed By: #### L 100.0500, L500.2500 ####[facility] [address] [place], [address] RBC (Bld) [#/Vol] 3.73 10*6/uL Low 4.2-5.4 [facility] Comment on above: Performed By: #### L 100.0500, L500.2500 ####[facility] [address] [place], [address] RDW SD 51.7 fl High 35.1-43.9 [facility] Comment on above: Performed By: #### L 100.0500, L500.2500 ####[facility] [address] [place], [address] WBC (Bld) [#/Vol] 7.9 10*3/uL Normal 4.4-11.0 [facility] Comment on above: Performed By: #### L 100.0500, L500.2500 ####[facility] [address] [place], [address] Electrocardiogram reportOrde red By: Nieves Sheth on 12-27-2024 EKG study [facility] Cardiovascular Services [address] [place] [address] 12 Lead EKG 12/24/24 1619 MR#: [id number] Acct: [id number] Name: LESLI ROSALES Rep #:[id number] : 1940 84 From: Nieves carroll MD Attending Dr: Dr. Sveta Macias DO S tatus: ADM IN Ordering Dr: Oskar Camargo MD [...] abnormality Abnormal ECG Confirmed by Nieves Sheth ([id number]), purchase request editor CHARLA AGRIBAY ([id number]) on 12/27/2024 12:06:06 PM Referred By: AR Confirmed By: Nieves Sheth 12/27/24 1206 Date _ Nieves Sheth MD CC: Dr. Oskar Camargo MD; Dr. Sveta Macias DO; NISA GUTHRIE ~ Signed [facility] Other Phone: Lumbar Spine 2 or 3 Viewson 12-27-2024 Lumbar Spine 2 or 3 Views Normal [facility] Urine Cultureon 12-27-2024 URC Normal [facility] Comment on above: Performed By: #### M 100.2200, L400.0001 ####[facility] [address] [place], [address] Basic Metabolic Profile (BMP )on 12-26-2024 BUN/CRE 51.7 RATIO High 10-20 [facility] Comment on above: Performed By: #### L 501.2300, L500.2500 ####[facility] [address] [place], [address] Calcium [Mass/Vol] 8.5 mg/dL Normal 7.6-11.0 [facility] Comment on above: Performed By: #### L 501.2300, L500.2500 ####[facility] [address] [place], [address] Chloride [Moles/Vol] 109 mmol/L High 98-108 [facility] Comment on above: Performed By: #### L 501.2300, L500.2500 ####[facility] [address] [place], [address] CO2 [Moles/Vol] 27.8 mmol/L Normal 21.0-32.0 [facility] Comment on above: Performed By: #### L 501.2300, L500.2500 ####[facility] [address] [place], [address] Creatinine [Mass/Vol] 0.44 mg/dL Low 0.70-1.20 [facility] Comment on above: Performed By: #### L 501.2300, L500.2500 ####[facility] [address] [place], [address] ECRCL 44.83 ml/min Low 50-250 [facility] Comment on above: Performed By: #### L 501.2300, L500.2500 ####[facility] [address] [place], [address] GAP 5 Normal 5-15 [facility] Comment on above: Performed By: #### L 501.2300, L500.2500 ####[facility] [address] [place], [address] GFR/1.73 sq M.predicted among non-blacks MDRD (S/P/Bld) [Vol rate/Area] 96 mL/min/{1.73_m2} Normal >60 [facility] Comment on above: Result Comment: mL/m in/1.73m2 CKD-EPI Creatinine Equation (2020) Performed By: #### L 501.2300, L500.2500 ####[facility] [address] [place], [address] Glucose [Mass/Vol] 78 mg/dL Normal 70-99 [facility] Comment on above: Performed By: #### L 501.2300, L500.2500 ####[facility] [address] [place], [address] Potassium [Moles/Vol] 3.7 mmol/L Normal 3.3-5.1 [facility] Comment on above: Performed By: #### L 501.2300, L500.2500 ####[facility] [address] [place], [address] Sodium [Moles/Vol] 142 mmol/L Normal 133-145 [facility] Comment on above: Performed By: #### L 501.2300, L500.2500 ####[facility] [address] [place], [address] Urea nitrogen [Mass/Vol] 23 mg/dL High 4-19 [facility] Comment on above: Performed By: #### L 501.2300, L500.2500 ####[facility] [address] [place], [address] CBC-Complete Blood Cnt No Clif anne 12-26-2024 Erythrocyte distribution width (RBC) [Ratio] 14.2 % Normal 11.6-14.6 [facility] Comment on above: Performed By: #### L 100.0500 ####[facility] [address] [place], [address] Hematocrit (Bld) [Volume fraction] 36.3 % Low 37-47 [facility] Comment on above: Performed By: #### L 100.0500 ####[facility] [address] [place], [address] Hemoglobin (Bld) [Mass/Vol] 11.8 g/dL Low 12.0-15.0 [facility] Comment on above: Performed By: #### L 100.0500 ####[facility] [address] [place], [address] MCH (RBC) [Entitic mass] 32.8 pg High 27.0-32.0 [facility] Comment on above: Performed By: #### L 100.0500 ####[facility] [address] [place], [address] MCHC (RBC) [Mass/Vol] 32.5 g/dL Normal 32-36 [facility] Comment on above: Performed By: #### L 100.0500 ####[facility] [address] [place], [address] MCV (RBC) [Entitic vol] 100.8 fL High 81-99 [facility] Comment on above: Performed By: #### L 100.0500 ####[facility] [address] [place], [address] Platelet mean volume (Bld) [Entitic vol] 10.7 fL Normal 6.2-12.0 [facility] Comment on above: Performed By: #### L 100.0500 ####[facility] [address] [place], [address] Platelets (Bld) [#/Vol] 162 10*3/uL Normal 150-450 [facility] Comment on above: Performed By: #### L 100.0500 ####[facility] [address] [place], [address] RBC (Bld) [#/Vol] 3.60 10*6/uL Low 4.2-5.4 [facility] Comment on above: Performed By: #### L 100.0500 ####[facility] [address] [place], [address] RDW SD 52.7 fl High 35.1-43.9 [facility] Comment on above: Performed By: #### L 100.0500 ####[facility] [address] [place], [address] WBC (Bld) [#/Vol] 8.2 10*3/uL Normal 4.4-11.0 [facility] Comment on above: Performed By: #### L 100.0500 ####[facility] [address] [place], [address] Consultation - Orthopedicson 12-26-2024 Consultation - Orthopedics Normal [facility] Phosphoruson 12-26-2024 Phosphate [Mass/Vol] 3.0 mg/dL Normal 2.7-4.5 [facility] Comment on above: Performed By: #### L 501.2300, L500.2500 ####[facility] [address] [place], [address] Absolute lymphocyte countOrd ered By: Kevin Naidu on 12-25-2024 Lymphocytes Auto (Unsp spec) [#/Vol] 2.31 10*3/uL 0.83-4.51 [facility] Absolute neutrophil countOrd ered By: Kevin Naidu on 12-25-2024 Neutrophils (Bld) [#/Vol] 6.0 10*3/uL 2.0-7.7 [facility] Automated lymphocyte count a s percentage of total leukocytesOrdered By: Kevin Naidu on 12-25-2024 Lymphocytes/100 WBC Auto (Unsp spec) 24.4 % 19-41 [facility] Basophil percentageOrdered B y: Kevin Naidu on 12-25-2024 Basophils/100 WBC (Bld) 0.7 % 0-1 [facility] Bilirubin, totalOrdered By: Kevin Naidu on 12-25-2024 Bilirubin [Mass/Vol] 0.61 mg/dL 0.00-1.30 [facility] CBC W/Diff, Automatedon Absolute Lymph 2.31 X10 3/uL Normal 0.83-4.51 [facility] Comment on above: Performed By: #### L 501.2300, L500.4050, L100.0100 ####[facility] [address] [place], [address] Absolute Neut 6.0 X10 3/uL Normal 2.0-7.7 [facility] Comment on above: Performed By: #### L 501.2300, L500.4050, L100.0100 ####[facility] [address] [place], [address] Basophils/100 WBC (Bld) 0.7 % Normal 0-1 [facility] Comment on above: Performed By: #### L 501.2300, L500.4050, L100.0100 ####[facility] [address] [place], [address] Eosinophils/100 WBC (Bld) 2.6 % Normal 0-5 [facility] Comment on above: Performed By: #### L 501.2300, L500.4050, L100.0100 ####[facility] [address] [place], [address] Erythrocyte distribution width (RBC) [Ratio] 14.3 % Normal 11.6-14.6 [facility] Comment on above: Performed By: #### L 501.2300, L500.4050, L100.0100 ####[facility] [address] [place], [address] Hematocrit (Bld) [Volume fraction] 38.2 % Normal 37-47 [facility] Comment on above: Performed By: #### L 501.2300, L500.4050, L100.0100 ####[facility] [address] [place], [address] Hemoglobin (Bld) [Mass/Vol] 12.4 g/dL Normal 12.0-15.0 [facility] Comment on above: Performed By: #### L 501.2300, L500.4050, L100.0100 ####[facility] [address] [place], [address] IG% 0.300 Normal 0.0-0.9 [facility] Comment on above: Result Comment: IG% - Immature Granulocytes (promyelocytes, myelocytes andmetamyelocytes) > 1% indicates that a LEFT SHIFT is Present. Performed By: #### L 501.2300, L500.4050, L100.0100 ####[facility] [address] [place], [address] Lymphocytes/100 WBC (Bld) 24.4 % Normal 19-41 [facility] Comment on above: Performed By: #### L 501.2300, L500.4050, L100.0100 ####[facility] [address] [place], [address] MCH (RBC) [Entitic mass] 32.5 pg High 27.0-32.0 [facility] Comment on above: Performed By: #### L 501.2300, L500.4050, L100.0100 ####[facility] [address] [place], [address] MCHC (RBC) [Mass/Vol] 32.5 g/dL Normal 32-36 [facility] Comment on above: Performed By: #### L 501.2300, L500.4050, L100.0100 ####[facility] [address] [place], [address] MCV (RBC) [Entitic vol] 100.3 fL High 81-99 [facility] Comment on above: Performed By: #### L 501.2300, L500.4050, L100.0100 ####[facility] [address] [place], [address] Monocytes/100 WBC (Bld) 9.2 % Normal 0-10 [facility] Comment on above: Performed By: #### L 501.2300, L500.4050, L100.0100 ####[facility] [address] [place], [address] Neutrophils/100 WBC (Bld) 62.8 % Normal 47-70 [facility] Comment on above: Performed By: #### L 501.2300, L500.4050, L100.0100 ####[facility] [address] [place], [address] Nucleated RBC (Bld) [#/Vol] 0 10*3/uL Normal 0-5 [facility] Comment on above: Performed By: #### L 501.2300, L500.4050, L100.0100 ####[facility] [address] [place], [address] Platelet mean volume (Bld) [Entitic vol] 10.3 fL Normal 6.2-12.0 [facility] Comment on above: Performed By: #### L 501.2300, L500.4050, L100.0100 ####[facility] [address] [place], [address] Platelets (Bld) [#/Vol] 175 10*3/uL Normal 150-450 [facility] Comment on above: Performed By: #### L 501.2300, L500.4050, L100.0100 ####[facility] [address] [place], [address] RBC (Bld) [#/Vol] 3.81 10*6/uL Low 4.2-5.4 [facility] Comment on above: Performed By: #### L 501.2300, L500.4050, L100.0100 ####[facility] [address] [place], [address] RDW SD 52.2 fl High 35.1-43.9 [facility] Comment on above: Performed By: #### L 501.2300, L500.4050, L100.0100 ####[facility] [address] [place], [address] WBC (Bld) [#/Vol] 9.5 10*3/uL Normal 4.4-11.0 [facility] Comment on above: Performed By: #### L 501.2300, L500.4050, L100.0100 ####[facility] [address] [place], [address] Comprehensive Metabolic Prof ilon 12-25-2024 Albumin [Mass/Vol] 2.6 g/dL Low 3.4-4.8 [facility] Comment on above: Result Comment: DUP ORDER. UA COMPLETE Performed By: #### L 501.2300, L500.4050, L100.0100 ####[facility] [address] [place], [address] Albumin/Globulin [Mass ratio] 1.1 {ratio} Normal 0.9-2.4 [facility] Comment on above: Result Comment: DUP ORDER. UA COMPLETE Performed By: #### L 501.2300, L500.4050, L100.0100 ####[facility] [address] [place], [address] ALK PHOS 127 U/L High 35-104 [facility] Comment on above: Result Comment: DUP ORDER. UA COMPLETE Performed By: #### L 501.2300, L500.4050, L100.0100 ####[facility] [address] [place], [address] ALT [Catalytic activity/Vol] 16 U/L Normal <=34 [facility] Comment on above: Result Comment: DUP ORDER. UA COMPLETE Performed By: #### L 501.2300, L500.4050, L100.0100 ####[facility] [address] [place], [address] AST [Catalytic activity/Vol] 28 U/L Normal <=31 [facility] Comment on above: Result Comment: DUP ORDER. UA COMPLETE Performed By: #### L 501.2300, L500.4050, L100.0100 ####[facility] [address] [place], [address] Bilirubin [Mass/Vol] 0.61 mg/dL Normal 0.00-1.30 [facility] Comment on above: Result Comment: DUP ORDER. UA COMPLETE Performed By: #### L 501.2300, L500.4050, L100.0100 ####[facility] [address] [place], [address] BUN/CRE 41.0 RATIO High 10-20 [facility] Comment on above: Result Comment: DUP ORDER. UA COMPLETE Performed By: #### L 501.2300, L500.4050, L100.0100 ####[facility] [address] [place], [address] Calcium [Mass/Vol] 8.4 mg/dL Normal 7.6-11.0 [facility] Comment on above: Result Comment: DUP ORDER. UA COMPLETE Performed By: #### L 501.2300, L500.4050, L100.0100 ####[facility] [address] [place], [address] Chloride [Moles/Vol] 109 mmol/L High 98-108 [facility] Comment on above: Result Comment: DUP ORDER. UA COMPLETE Performed By: #### L 501.2300, L500.4050, L100.0100 ####[facility] [address] [place], [address] CO2 [Moles/Vol] 26.1 mmol/L Normal 21.0-32.0 [facility] Comment on above: Result Comment: DUP ORDER. UA COMPLETE Performed By: #### L 501.2300, L500.4050, L100.0100 ####[facility] [address] [place], [address] Creatinine [Mass/Vol] 0.50 mg/dL Low 0.70-1.20 [facility] Comment on above: Result Comment: DUP ORDER. UA COMPLETE Performed By: #### L 501.2300, L500.4050, L100.0100 ####[facility] [address] [place], [address] ECRCL 43.99 ml/min Low 50-250 [facility] Comment on above: Result Comment: DUP ORDER. UA COMPLETE Performed By: #### L 501.2300, L500.4050, L100.0100 ####[facility] [address] [place], [address] GAP 5 Normal 5-15 [facility] Comment on above: Result Comment: DUP ORDER. UA COMPLETE Performed By: #### L 501.2300, L500.4050, L100.0100 ####[facility] [address] [place], [address] GFR/1.73 sq M.predicted among non-blacks MDRD (S/P/Bld) [Vol rate/Area] 93 mL/min/{1.73_m2} Normal >60 [facility] Comment on above: Result Comment: mL/m in/1.73m2 CKD-EPI Creatinine Equation (2020) Performed By: #### L 501.2300, L500.4050, L100.0100 ####[facility] [address] [place], [address] Globulin (S) [Mass/Vol] 2.3 g/dL Normal 2.2-4.2 [facility] Comment on above: Result Comment: DUP ORDER. UA COMPLETE Performed By: #### L 501.2300, L500.4050, L100.0100 ####[facility] [address] [place], [address] Glucose [Mass/Vol] 71 mg/dL Normal 70-99 [facility] Comment on above: Result Comment: DUP ORDER. UA COMPLETE Performed By: #### L 501.2300, L500.4050, L100.0100 ####[facility] [address] [place], [address] Potassium [Moles/Vol] 4.1 mmol/L Normal 3.3-5.1 [facility] Comment on above: Result Comment: DUP ORDER. UA COMPLETE Performed By: #### L 501.2300, L500.4050, L100.0100 ####[facility] [address] [place], [address] Sodium [Moles/Vol] 141 mmol/L Normal 133-145 [facility] Comment on above: Result Comment: DUP ORDER. UA COMPLETE Performed By: #### L 501.2300, L500.4050, L100.0100 ####[facility] [address] [place], [address] T PROT 4.9 g/dL Low 5.9-8.4 [facility] Comment on above: Result Comment: DUP ORDER. UA COMPLETE Performed By: #### L 501.2300, L500.4050, L100.0100 ####[facility] [address] [place], [address] Urea nitrogen [Mass/Vol] 21 mg/dL High 4-19 [facility] Comment on above: Result Comment: DUP ORDER. UA COMPLETE Performed By: #### L 501.2300, L500.4050, L100.0100 ####[facility] [address] [place], [address] Eosinophil percentageOrdered By: Kevin Naidu on 12-25-2024 Eosinophils/100 WBC (Bld) 2.6 % 0-5 [facility] Folate [Moles/volume] in Ser um or PlasmaOrdered By: Kevin Naidu on 12-25-2024 Folate [Moles/Vol] 16.70 ng/mL 4.60-34.80 [facility] Comment on above: Hemolysis, Results w ill be affected, Requires Recollection. Folates,Serum (Folic Acid)on 12-25-2024 FOLATES,SERUM 16.70 ng/mL Normal 4.60-34.80 [facility] Comment on above: Result Comment: Hemo lysis, Results will be affected, Requires Recollection. Performed By: #### L 501.9520, L506.0200, L501.5200 ####[facility] [address] [place], [address] Immature granulocytes/100 WB C Auto (Bld)Ordered By: Kevin Naidu on 12-25-2024 Immature granulocytes/100 WBC (Bld) 0.300 % 0.0-0.9 [facility] Comment on above: IG% - Immature Granu locytes (promyelocytes, myelocytes and metamyelocytes) > 1% indicates that a LEFT SHIFT is Present. Laboratory - Chemistry and C hemistry - challengeOrdered By: Kevin Naidu on 12-25-2024 AST [Catalytic activity/Vol] 28 U/L <32 [facility] Magnetic resonance imaging r eportOrdered By: Goldy Estrella on 12-25-2024 Study report [facility] Imaging Services [address] [place] [address] Spine Lumbar (Routine) MR#: [id number] Acct: [id number] Name: LESLI ROSALES Rep #: [id number] : 1940 F 84 From: Susan Estrella MD PCP: NISA GUTHRIE Status: ADM IN Study:Spine Lumbar (Routine) Date of Exam: 12/24/24 Exam# [id number] Ordering Dr: Kevin Mathur DO PROCEDURE: SPINE [...] 5. Additional description as above. Reading Location: [facility] CC: Dr. Kevin Caballero, DO; NISA GUTHRIE ~ Coat Baster: Signed [facility] Monocyte percentageOrdered B y: Kevin Naidu on 12-25-2024 Monocytes/100 WBC (Bld) 9.2 % 0-10 [facility] Neutrophil percentageOrdered By: Kevin Naidu on 12-25-2024 Neutrophils/100 WBC (Bld) 62.8 % 47-70 [facility] No Panel InformationOrdered By: Keivn Naidu on 12-25-2024 28 U/L <32 [facility] Nucleated red blood cell per centageOrdered By: Kevin Naidu on 12-25-2024 Nucleated RBC/100 WBC (Bld) [Ratio] 0 % 0-5 [facility] Phosphoruson 12-25-2024 Phosphate [Mass/Vol] 3.2 mg/dL Normal 2.7-4.5 [facility] Comment on above: Order Comment: DUP O RDER. UA COMPLETE Result Comment: DUP ORDER. UA COMPLETE Performed By: #### L 501.2300, L500.4050, L100.0100 ####[facility] [address] [place], [address] Serum globulin measurementOr dered By: Kevin Naidu on 12-25-2024 Globulin (S) [Mass/Vol] 2.3 g/dL 2.2-4.2 [facility] Serum or plasma alanine colbert otransferase (ALT) measurementOrdered By: Kevin Naidu on 12-25-2024 ALT [Catalytic activity/Vol] 16 U/L <35 [facility] Serum or plasma albumin azael urement (mass/volume)Ordered By: Kevin Naidu on 12-25-2024 Albumin [Mass/Vol] 2.6 g/dL Low 3.4-4.8 [facility] Serum or plasma albumin/glob ulin mass ratioOrdered By: Kevin Naidu on 12-25-2024 Albumin/Globulin [Mass ratio] 1.1 {ratio} 0.9-2.4 [facility] Serum or plasma alkaline selvin sphatase measurementOrdered By: Kevin Naidu on 12-25-2024 ALP [Catalytic activity/Vol] 127 U/L High 35-104 [facility] Total proteinOrdered By: Spenser Naidu on 12-25-2024 Protein [Mass/Vol] 4.9 g/dL Low 5.9-8.4 [facility] Vitamin D,25 Hydroxyon 12-25 Vitamin D 25-OH 33.9 ng/mL Normal 30-100 [facility] Comment on above: Result Comment: Estephania min D StatusDeficiency: <20 ng/mL (50nmol/L)Insufficiency: 20-30 ng/mL (50-75 nmol/L)Sufficiency: 30-100 ng/mL (75-250 nmol/L)Toxicity: >100 ng/mL (>250 nmol/L) Performed By: #### L 506.1001 ####[facility] [address] [place], [place], [id number] 12 Lead EKGon 12-24-2024 12 Lead EKG Normal [facility] Absolute neutrophil countOrd ered By: Oskar Camargo on 12-24-2024 Neutrophils (Bld) [#/Vol] 8.2 10*3/uL High 2.0-7.7 [facility] Amorphous sediment detection in urine sediment by light microscopyOrdered By: Oskar Camargo on 12-24-2024 Amorphous sediment LM Ql (Urine sed) 3+ [facility] Anion gap in Serum or Plasma Ordered By: Oskar Camargo on 12-24-2024 Anion gap [Moles/Vol] 7 mmol/L 5-15 [facility] BUN/creatinine ratioOrdered By: Oskar Camargo on 12-24-2024 Urea nitrogen/Creatinine [Mass ratio] 35.9 mg/mg High 10-20 [facility] Basophil percentageOrdered B y: Oskar Camargo on 12-24-2024 Basophils/100 WBC (Bld) 0.5 % 0-1 [facility] Bilirubin Test strip Ql (U)O rdered By: Oskar Camargo on 12-24-2024 Bilirubin Ql (U) 1 mg/dL High Negative [facility] Comment on above: COLOR OF URINE MAY A FFECT DIPSTICK RESULTS. Bilirubin, totalOrdered By: Oskar Camargo on 12-24-2024 Bilirubin [Mass/Vol] 0.71 mg/dL 0.00-1.30 [facility] CBC W/Diff, Automatedon Absolute Lymph 2.43 X10 3/uL Normal 0.83-4.51 [facility] Comment on above: Performed By: #### L 100.0100, L500.4050 ####[facility] [address] [place], [place], [id number] Absolute Neut 8.2 X10 3/uL High 2.0-7.7 [facility] Comment on above: Performed By: #### L 100.0100, L500.4050 ####[facility] [address] [place], [address] Basophils/100 WBC (Bld) 0.5 % Normal 0-1 [facility] Comment on above: Performed By: #### L 100.0100, L500.4050 ####[facility] [address] [place], [address] Eosinophils/100 WBC (Bld) 1.2 % Normal 0-5 [facility] Comment on above: Performed By: #### L 100.0100, L500.4050 ####[facility] [address] [place], [address] Erythrocyte distribution width (RBC) [Ratio] 14.4 % Normal 11.6-14.6 [facility] Comment on above: Performed By: #### L 100.0100, L500.4050 ####[facility] [address] [place], [address] Hematocrit (Bld) [Volume fraction] 43.2 % Normal 37-47 [facility] Comment on above: Performed By: #### L 100.0100, L500.4050 ####[facility] [address] [place], [address] Hemoglobin (Bld) [Mass/Vol] 14.0 g/dL Normal 12.0-15.0 [facility] Comment on above: Performed By: #### L 100.0100, L500.4050 ####[facility] [address] [place], [address] IG% 0.500 Normal 0.0-0.9 [facility] Comment on above: Result Comment: IG% - Immature Granulocytes (promyelocytes, myelocytes andmetamyelocytes) > 1% indicates that a LEFT SHIFT is Present. Performed By: #### L 100.0100, L500.4050 ####[facility] [address] [place], [address] Lymphocytes/100 WBC (Bld) 20.6 % Normal 19-41 [facility] Comment on above: Performed By: #### L 100.0100, L500.4050 ####[facility] [address] [place], [address] MCH (RBC) [Entitic mass] 32.1 pg High 27.0-32.0 [facility] Comment on above: Performed By: #### L 100.0100, L500.4050 ####[facility] [address] [place], [address] MCHC (RBC) [Mass/Vol] 32.4 g/dL Normal 32-36 [facility] Comment on above: Performed By: #### L 100.0100, L500.4050 ####[facility] [address] [place], [address] MCV (RBC) [Entitic vol] 99.1 fL High 81-99 [facility] Comment on above: Performed By: #### L 100.0100, L500.4050 ####[facility] [address] [place], [address] Monocytes/100 WBC (Bld) 7.6 % Normal 0-10 [facility] Comment on above: Performed By: #### L 100.0100, L500.4050 ####[facility] [address] [place], [address] Neutrophils/100 WBC (Bld) 69.6 % Normal 47-70 [facility] Comment on above: Performed By: #### L 100.0100, L500.4050 ####[facility] [address] [place], [address] Nucleated RBC (Bld) [#/Vol] 0 10*3/uL Normal 0-5 [facility] Comment on above: Performed By: #### L 100.0100, L500.4050 ####[facility] [address] [place], [address] Platelet mean volume (Bld) [Entitic vol] 10.4 fL Normal 6.2-12.0 [facility] Comment on above: Performed By: #### L 100.0100, L500.4050 ####[facility] [address] [place], [address] Platelets (Bld) [#/Vol] 212 10*3/uL Normal 150-450 [facility] Comment on above: Performed By: #### L 100.0100, L500.4050 ####[facility] [address] [place], [address] RBC (Bld) [#/Vol] 4.36 10*6/uL Normal 4.2-5.4 [facility] Comment on above: Performed By: #### L 100.0100, L500.4050 ####[facility] [address] [place], [address] RDW SD 53.0 fl High 35.1-43.9 [facility] Comment on above: Performed By: #### L 100.0100, L500.4050 ####[facility] [address] [place], [address] WBC (Bld) [#/Vol] 11.8 10*3/uL High 4.4-11.0 [facility] Comment on above: Performed By: #### L 100.0100, L500.4050 ####[facility] [address] [place], [address] Calcium oxalate crystals det ection in urine sediment by light microscopyOrdered By: Oskar Camargo on 12-24-2024 Calcium oxalate crystals LM Ql (Urine sed) 2+ /hpf [facility] Carbon dioxide, total [Moles /volume] in Central venous bloodOrdered By: Oskar Camargo on 12-24-2024 CO2 [Moles/Vol] 27.7 mmol/L 21.0-32.0 [facility] Chest 1 View (Portable)on Chest 1 View (Portable) Normal [facility] Chloride assayOrdered By: Philip Camargo on 12-24-2024 Chloride [Moles/Vol] 106 mmol/L 98-108 [facility] Comprehensive Metabolic Prof ilon 12-24-2024 Albumin [Mass/Vol] 3.1 g/dL Low 3.4-4.8 [facility] Comment on above: Performed By: #### L 100.0100, L500.4050 ####[facility] [address] [place], [address] Albumin/Globulin [Mass ratio] 1.1 {ratio} Normal 0.9-2.4 [facility] Comment on above: Performed By: #### L 100.0100, L500.4050 ####[facility] [address] [place], [address] ALK PHOS 157 U/L High 35-104 [facility] Comment on above: Performed By: #### L 100.0100, L500.4050 ####[facility] [address] [place], [address] ALT [Catalytic activity/Vol] 20 U/L Normal <=34 [facility] Comment on above: Performed By: #### L 100.0100, L500.4050 ####[facility] [address] [place], [address] AST [Catalytic activity/Vol] 32 U/L Normal <=31 [facility] Comment on above: Performed By: #### L 100.0100, L500.4050 ####[facility] [address] [place], [address] Bilirubin [Mass/Vol] 0.71 mg/dL Normal 0.00-1.30 [facility] Comment on above: Performed By: #### L 100.0100, L500.4050 ####[facility] [address] [place], [address] BUN/CRE 35.9 RATIO High 10-20 [facility] Comment on above: Performed By: #### L 100.0100, L500.4050 ####[facility] [address] [place], [address] Calcium [Mass/Vol] 9.2 mg/dL Normal 7.6-11.0 [facility] Comment on above: Performed By: #### L 100.0100, L500.4050 ####[facility] [address] [place], [address] Chloride [Moles/Vol] 106 mmol/L Normal 98-108 [facility] Comment on above: Performed By: #### L 100.0100, L500.4050 ####[facility] [address] [place], [address] CO2 [Moles/Vol] 27.7 mmol/L Normal 21.0-32.0 [facility] Comment on above: Performed By: #### L 100.0100, L500.4050 ####[facility] [address] [place], [address] Creatinine [Mass/Vol] 0.65 mg/dL Low 0.70-1.20 [facility] Comment on above: Performed By: #### L 100.0100, L500.4050 ####[facility] [address] [place], [address] ECRCL 44.70 ml/min Low 50-250 [facility] Comment on above: Performed By: #### L 100.0100, L500.4050 ####[facility] [address] [place], [address] GAP 7 Normal 5-15 [facility] Comment on above: Performed By: #### L 100.0100, L500.4050 ####[facility] [address] [place], [address] GFR/1.73 sq M.predicted among non-blacks MDRD (S/P/Bld) [Vol rate/Area] 87 mL/min/{1.73_m2} Normal >60 [facility] Comment on above: Result Comment: mL/m in/1.73m2 CKD-EPI Creatinine Equation (2020) Performed By: #### L 100.0100, L500.4050 ####[facility] [address] [place], [address] Globulin (S) [Mass/Vol] 2.9 g/dL Normal 2.2-4.2 [facility] Comment on above: Performed By: #### L 100.0100, L500.4050 ####[facility] [address] [place], [address] Glucose [Mass/Vol] 106 mg/dL High 70-99 [facility] Comment on above: Performed By: #### L 100.0100, L500.4050 ####[facility] [address] [place], [address] Potassium [Moles/Vol] 3.8 mmol/L Normal 3.3-5.1 [facility] Comment on above: Performed By: #### L 100.0100, L500.4050 ####[facility] [address] [place], [address] Sodium [Moles/Vol] 141 mmol/L Normal 133-145 [facility] Comment on above: Performed By: #### L 100.0100, L500.4050 ####[facility] [address] [place], [address] T PROT 5.9 g/dL Normal 5.9-8.4 [facility] Comment on above: Performed By: #### L 100.0100, L500.4050 ####[facility] [address] [place], [place], [id number] Urea nitrogen [Mass/Vol] 23 mg/dL High 4-19 [facility] Comment on above: Performed By: #### L 100.0100, L500.4050 ####[facility] [address] [place], [place], [id number] Emergency Department Summary on 12-24-2024 Emergency Department Summary Normal [facility] Eosinophil percentageOrdered By: Oskar Camargo on 12-24-2024 Eosinophils/100 WBC (Bld) 1.2 % 0-5 [facility] Erythrocyte distribution wid th (RBC) [Ratio]Ordered By: Oskar Camargo on 12-24-2024 Erythrocyte distribution width (RBC) [Entitic vol] 53.0 fL High 35.1-43.9 [facility] Erythrocyte distribution wid th ratioOrdered By: Oskar Camargo on 12-24-2024 Erythrocyte distribution width (RBC) [Ratio] 14.4 % 11.6-14.6 [facility] Estimation of creatinine ema aranceOrdered By: Oskar Camargo on 12-24-2024 Estimated Creatinine Clearance Calc 44.70 ml/min Low 50-250 [facility] GFR/1.73 sq M.predicted lucinda g non-blacks MDRD (S/P/Bld) [Vol rate/Area]Ordered By: Oskar Camargo on 12-24-2024 Estimated GFR (MDRD) Non-Af Amer 87 >60 [facility] Comment on above: mL/min/1.73m2 CKD-EP I Creatinine Equation (2020) H AND P Exam - Hospitaliston 12-24-2024 H&P Exam - Hospitalist Normal [facility] Hematocrit Auto (Bld) [Volum e fraction]Ordered By: Oskar Camargo on 12-24-2024 Hematocrit (Bld) [Volume fraction] 43.2 % 37-47 [facility] Hemoglobin measurementOrdere d By: Oskar Camargo on 12-24-2024 Hemoglobin (Bld) [Mass/Vol] 14.0 g/dL 12.0-15.0 [facility] Immature granulocytes/100 WB C Auto (Bld)Ordered By: Oskar Camargo on 12-24-2024 Immature granulocytes/100 WBC (Bld) 0.500 % 0.0-0.9 [facility] Comment on above: IG% - Immature Granu locytes (promyelocytes, myelocytes and metamyelocytes) > 1% indicates that a LEFT SHIFT is Present. Ketones Test strip Ql (U)Ord ered By: Oskar Camargo on 12-24-2024 Ketones Ql (U) 5 mg/dl High Negative [facility] Laboratory - Chemistry and C hemistry - challengeOrdered By: Oskar Camargo on 12-24-2024 AST [Catalytic activity/Vol] 32 U/L <32 [facility] Lymphocytes Auto (Unsp spec) [#/Vol]Ordered By: Oskar Camargo on 12-24-2024 Lymphocytes (Bld) [#/Vol] 2.43 10*3/uL 0.83-4.51 [facility] Lymphocytes/100 WBC Auto (Un sp spec)Ordered By: Oskar Camargo on 12-24-2024 Lymphocytes/100 WBC (Bld) 20.6 % 19-41 [facility] MCV (mean corpuscular volume ) determinationOrdered By: Oskar Camargo on 12-24-2024 MCV (RBC) [Entitic vol] 99.1 fL High 81-99 [facility] Magnesiumon 12-24-2024 Magnesium [Mass/Vol] 2.1 mg/dL Normal 1.5-2.2 [facility] Comment on above: Performed By: #### L 501.9520, L506.0200, L501.5200 ####[facility] [address] [place], [place], [id number] Magnesium measurement (mass/ volume)Ordered By: Kevin Naidu on 12-24-2024 Magnesium (Unsp spec) [Mass/Vol] 2.1 mg/dL 1.5-2.2 [facility] Mean corpuscular hemoglobin (MCH) determinationOrdered By: Oskar Camargo on 12-24-2024 MCH (RBC) [Entitic mass] 32.1 pg High 27.0-32.0 [facility] Mean corpuscular hemoglobin concentration (MCHC) determinationOrdered By: Oskar Camargo on 12-24-2024 MCHC (RBC) [Mass/Vol] 32.4 g/dL 32-36 [facility] Mean platelet volume determi nationOrdered By: Oskar Camargo on 12-24-2024 Platelet mean volume (Bld) [Entitic vol] 10.4 fL 6.2-12.0 [facility] Microscopic analysis of urin e for red blood cells (RBC)Ordered By: Oskar Camargo on 12-24-2024 Microscopic analysis of urine for red blood cells (RBC) 0-5 SEEN /hpf 0-5 [facility] Monocyte percentageOrdered B y: Oskar Camargo on 12-24-2024 Monocytes/100 WBC (Bld) 7.6 % 0-10 [facility] Mucus LM Ql (Urine sed)Order ed By: Oskar Camargo on 12-24-2024 Mucus Ql (Urine sed) 0 SEEN /hpf [facility] Neutrophil percentageOrdered By: Oskar Camargo on 12-24-2024 Neutrophils/100 WBC (Bld) 69.6 % 47-70 [facility] Nitrite Test strip Ql (U)Ord ered By: Oskar Camargo on 12-24-2024 Nitrite Ql (U) Negative Negative [facility] Nucleated red blood cell per centageOrdered By: Oskar Camargo on 12-24-2024 Nucleated RBC/100 WBC (Bld) [Ratio] 0 % 0-5 [facility] Platelet countOrdered By: Philip Camargo on 12-24-2024 Platelets (Bld) [#/Vol] 212 10*3/uL 150-450 [facility] Potassium (Unsp spec) [Mass/ Vol]Ordered By: Oskar Camargo on 12-24-2024 Potassium [Moles/Vol] 3.8 mmol/L 3.3-5.1 [facility] Protein Test strip Ql (U)Ord ered By: Oskar Camargo on 12-24-2024 Protein Ql (U) 30 mg/dl High Negative [facility] RBC Auto (Bld) [#/Vol]Ordere d By: Oskar Camargo on 12-24-2024 RBC (Bld) [#/Vol] 4.36 10*6/uL 4.2-5.4 [facility] Serum creatinine measurement (mass/volume)Ordered By: Oskar Camargo on 12-24-2024 Creatinine [Mass/Vol] 0.65 mg/dL Low 0.70-1.20 [facility] Serum globulin measurementOr dered By: Oskar Camargo on 12-24-2024 Globulin (S) [Mass/Vol] 2.9 g/dL 2.2-4.2 [facility] Serum glucose measurement (m ass/volume)Ordered By: Oskar Camargo on 12-24-2024 Glucose [Mass/Vol] 106 mg/dL High 70-99 [facility] Serum or plasma alanine colbert otransferase (ALT) measurementOrdered By: Oskar Camargo on 12-24-2024 ALT [Catalytic activity/Vol] 20 U/L <35 [facility] Serum or plasma albumin azael urement (mass/volume)Ordered By: Oskar Camargo on 12-24-2024 Albumin [Mass/Vol] 3.1 g/dL Low 3.4-4.8 [facility] Serum or plasma albumin/glob ulin mass ratioOrdered By: Oskar Camargo on 12-24-2024 Albumin/Globulin [Mass ratio] 1.1 {ratio} 0.9-2.4 [facility] Serum or plasma alkaline selvin sphatase measurementOrdered By: Oskar Camargo on 12-24-2024 ALP [Catalytic activity/Vol] 157 U/L High 35-104 [facility] Serum or plasma calcium azael urement (mass/volume)Ordered By: Oskar Camargo on 12-24-2024 Calcium [Mass/Vol] 9.2 mg/dL 7.6-11.0 [facility] Serum or plasma urea nitroge n measurement (mass/volume)Ordered By: Oskar Camargo on 12-24-2024 Urea nitrogen [Mass/Vol] 23 mg/dL High 4-19 [facility] Sodium levelOrdered By: Oskar Camargo on 12-24-2024 Sodium [Moles/Vol] 141 mmol/L 133-145 [facility] Spine Lumbar (Routine)on Spine Lumbar (Routine) Normal [facility] Spine Lumbar without Contras ton 12-24-2024 Spine Lumbar without Contrast Normal [facility] Squamous epithelial cells de tection in urine sediment by light microscopyOrdered By: Oskar Camargo on 12-24-2024 Epithelial cells.squamous LM Ql (Urine sed) 5-10 SEEN /hpf 5-10 [facility] TSH DL <= 0.005 mIU/L QnOrde red By: Kevin Naidu on 12-24-2024 TSH Qn 1.160 uIU/mL 0.300-4.20 0 [facility] Thyroid Stim Hormone (TSH)on 12-24-2024 TSH 1.160 uIU/mL Normal 0.300-4.20 0 [facility] Comment on above: Performed By: #### L 501.9520, L506.0200, L501.5200 ####[facility] [address] [place] [id number] Total proteinOrdered By: Tri Camargo on 12-24-2024 Protein [Mass/Vol] 5.9 g/dL 5.9-8.4 [facility] Urinalysis, Completeon 12-24 AMORPHOUS 3+ Normal [facility] Comment on above: Order Comment: COLOR OF URINE MAY AFFECT DIPSTICK RESULTS.CLEAN CATCH Performed By: #### L 400.0001 ####[facility] [address] [place] [id number] BACTERIA 3+ /hpf Normal None Seen [facility] Comment on above: Order Comment: COLOR OF URINE MAY AFFECT DIPSTICK RESULTS.CLEAN CATCH Performed By: #### L 400.0001 ####[facility] [address] [facility] [address] CA OX CRYSTAL 2+ /hpf Normal [facility] Comment on above: Order Comment: COLOR OF URINE MAY AFFECT DIPSTICK RESULTS.CLEAN CATCH Performed By: #### L 400.0001 ####[facility] [address] [place], [address] EPI,SQUAMOUS 5-10 SEEN Normal 5-10 [facility] Comment on above: Order Comment: COLOR OF URINE MAY AFFECT DIPSTICK RESULTS.CLEAN CATCH Performed By: #### L 400.0001 ####[facility] [address] [place], [address] RBC 0-5 SEEN Normal 0-5 [facility] Comment on above: Order Comment: COLOR OF URINE MAY AFFECT DIPSTICK RESULTS.CLEAN CATCH Performed By: #### L 400.0001 ####[facility] [address] [place], [address] WBC 5-10 SEEN Normal 0-5 [facility] Comment on above: Order Comment: COLOR OF URINE MAY AFFECT DIPSTICK RESULTS.CLEAN CATCH Performed By: #### L 400.0001 ####[facility] [address] [place], [address] Mucus Ql (Urine sed) 0 SEEN Normal [facility] Comment on above: Order Comment: COLOR OF URINE MAY AFFECT DIPSTICK RESULTS.CLEAN CATCH Performed By: #### L 400.0001 ####[facility] [address] [place], [address] BACTERIA Normal None Seen [facility] Comment on above: Order Comment: CLEAN CATCH Result Comment: DUP ORDER UA COMPLETE Performed By: #### M 100.2200, L400.0001 ####[facility] [address] [place], [address] BILIRUBIN URINE Normal Negative [facility] Comment on above: Order Comment: CLEAN CATCH Result Comment: DUP ORDER UA COMPLETE Performed By: #### M 100.2200, L400.0001 ####[facility] [address] [place], [address] Clarity (U) Normal Clear [facility] Comment on above: Order Comment: CLEAN CATCH Result Comment: DUP ORDER UA COMPLETE Performed By: #### M 100.2200, L400.0001 ####[facility] [address] [place], [address] Color (U) Normal Yellow [facility] Comment on above: Order Comment: CLEAN CATCH Result Comment: DUP ORDER UA COMPLETE Performed By: #### M 100.2200, L400.0001 ####[facility] [address] [place], [address] EPI,SQUAMOUS Normal 5-10 [facility] Comment on above: Order Comment: CLEAN CATCH Result Comment: DUP ORDER UA COMPLETE Performed By: #### M 100.2200, L400.0001 ####[facility] [address] [place], [address] GLUCOSE, UR Normal Normal [facility] Comment on above: Order Comment: CLEAN CATCH Result Comment: DUP ORDER UA COMPLETE Performed By: #### M 100.2200, L400.0001 ####[facility] [address] [place], [address] KETONE UR Normal Negative [facility] Comment on above: Order Comment: CLEAN CATCH Result Comment: DUP ORDER UA COMPLETE Performed By: #### M 100.2200, L400.0001 ####[facility] [address] [place], [address] LEUK ESTERASE Normal Negative [facility] Comment on above: Order Comment: CLEAN CATCH Result Comment: DUP ORDER UA COMPLETE Performed By: #### M 100.2200, L400.0001 ####[facility] [address] [place], [address] Mucus Ql (Urine sed) Normal [facility] Comment on above: Order Comment: CLEAN CATCH Result Comment: DUP ORDER UA COMPLETE Performed By: #### M 100.2200, L400.0001 ####[facility] [address] [place], [address] Nitrite Ql (U) Normal Negative [facility] Comment on above: Order Comment: CLEAN CATCH Result Comment: DUP ORDER UA COMPLETE Performed By: #### M 100.2200, L400.0001 ####[facility] [address] [place], [address] OCCULT BLOOD-UR Normal Negative [facility] Comment on above: Order Comment: CLEAN CATCH Result Comment: DUP ORDER UA COMPLETE Performed By: #### M 100.2200, L400.0001 ####[facility] [address] [place], [address] pH UR Normal 5.0 - 8.0 [facility] Comment on above: Order Comment: CLEAN CATCH Result Comment: DUP ORDER UA COMPLETE Performed By: #### M 100.2200, L400.0001 ####[facility] [address] [place], [address] PROT DIPSTX Normal Negative [facility] Comment on above: Order Comment: CLEAN CATCH Result Comment: DUP ORDER UA COMPLETE Performed By: #### M 100.2200, L400.0001 ####[facility] [address] [place], [address] RBC Normal 0-5 [facility] Comment on above: Order Comment: CLEAN CATCH Result Comment: DUP ORDER UA COMPLETE Performed By: #### M 100.2200, L400.0001 ####[facility] [address] [place], [address] SP.GR. DIPSTX Normal 1.002-1.03 0 [facility] Comment on above: Order Comment: CLEAN CATCH Result Comment: DUP ORDER UA COMPLETE Performed By: #### M 100.2200, L400.0001 ####[facility] [address] [place], [address] UR Preservative Normal [facility] Comment on above: Order Comment: CLEAN CATCH Result Comment: DUP ORDER UA COMPLETE Performed By: #### M 100.2200, L400.0001 ####[facility] [address] [place], [address] UROBILI Normal Normal [facility] Comment on above: Order Comment: CLEAN CATCH Result Comment: DUP ORDER UA COMPLETE Performed By: #### M 100.2200, L400.0001 ####[facility] [address] [place], [address] WBC Normal 0-5 [facility] Comment on above: Order Comment: CLEAN CATCH Result Comment: DUP ORDER UA COMPLETE Performed By: #### M 100.2200, L400.0001 ####[facility] [address] [place], [address] Urine clarityOrdered By: Tri Camargo on 12-24-2024 Clarity (U) Clear Clear [facility] Urine color determinationOrd ered By: Oskar Camargo on 12-24-2024 Color (U) Manjula Yellow [facility] Urine cultureOrdered By: Spenser Naidu on 12-24-2024 Bacteria identified Cx Nom (U) Escherichia coli Abnormal [facility] Bacteria identified Cx Nom (U) Proteus mirabilis Abnormal [facility] Urine glucose detectionOrder ed By: Oskar Camargo on 12-24-2024 Glucose Ql (U) Normal mg/dl Normal [facility] Urine leukocyte esterase det ection by dipstickOrdered By: Oskar Camargo on 12-24-2024 Leukocyte esterase Test strip Ql (U) 25 /ul High Negative [facility] Urine pHOrdered By: Oskar dotson on 12-24-2024 pH (U) 5.0 [pH] 5.0 - 8.0 [facility] Urine sediment bacteria coun t by microscopy (number/high power field)Ordered By: Oskar Camargo on 12-24-2024 Bacteria LM.HPF (Urine sed) [#/Area] 3 /[HPF] None Seen [facility] Urine specific gravity measu rementOrdered By: Oskar Camargo on 12-24-2024 Specific gravity (U) [Rel density] 1.025 1.002-1.03 0 [facility] Urine urobilinogen measureme ntOrdered By: Oskar Camargo on 12-24-2024 Urobilinogen Ql (U) 1 mg/dl High Normal [facility] Vitamin B12on 12-24-2024 Cobalamin (Vitamin B12) [Mass/Vol] 695 pg/mL Normal 180-914 [facility] Comment on above: Performed By: #### L 503.0106 ####[facility] [address] [place], [address] Vitamin B12 ser/plasOrdered By: Kevin Naidu on 12-24-2024 Cobalamin (Vitamin B12) [Mass/Vol] 695 pg/mL 180-914 [facility] White blood cell (WBC) count Ordered By: Oskar Camargo on 12-24-2024 WBC (Bld) [#/Vol] 11.8 10*3/uL High 4.4-11.0 [facility] White blood cell countOrdere d By: Oskar Camargo on 12-24-2024 White blood cell count 5-10 SEEN /hpf 0-5 [facility] 36on 11-28-2024 36 We have been unable to reach your patient to schedule their testing. Test Name: echo 1st Attempt: 11/28 spoke with patient will call us to schedule Normal [facility] Absolute lymphocyte countOrd ered By: Kevin Robles on 11-24-2024 Lymphocytes Auto (Unsp spec) [#/Vol] 0.96 10*3/uL 0.83-4.51 [facility] Comment on above: Previous reported re sult: 1.87 X10^3/uLEdited by: COLETTE on 11/24/24:0515 AMENDED REPORT 11/24/24514 Absolute Lymph previously reported as: 1.87 X10^3/uL Absolute neutrophil countOrd ered By: Kevin Robles on 11-24-2024 Neutrophils (Bld) [#/Vol] 11.3 10*3/uL High 2.0-7.7 [facility] Comment on above: Previous reported re sult: 7.5 X10^3/uLEdited by: COLETTE on 11/24/24:0515 AMENDED REPORT 11/24/2415 Absolute Neut previously reported as: 7.5 X10^3/uL Anion gap in Serum or Plasma Ordered By: Kevin Robles on 11-24-2024 Anion gap [Moles/Vol] 9 mmol/L 5-15 [facility] Automated lymphocyte count a s percentage of total leukocytesOrdered By: Kevin Robles on 11-24-2024 Lymphocytes/100 WBC Auto (Unsp spec) 6.6 % Low 19-41 [facility] Comment on above: Previous reported re sult: 17.3 %Edited by: COLETTE on 11/24/24:05 AMENDED REPORT 11/24/24514 LY% previously reported as: 17.3 L % BUN/creatinine ratioOrdered By: Kevin Robles on 11-24-2024 Urea nitrogen/Creatinine [Mass ratio] 28.1 mg/mg High 10-20 [facility] Basic Metabolic Profile (BMP )on 11-24-2024 BUN/CRE 28.1 RATIO High 10-20 [facility] Comment on above: Performed By: #### L 500.2500, L100.0100 ####[facility] [address] [place], [address] Calcium [Mass/Vol] 8.2 mg/dL Normal 7.6-11.0 [facility] Comment on above: Performed By: #### L 500.2500, L100.0100 ####[facility] [address] [place], [address] Chloride [Moles/Vol] 112 mmol/L High 98-108 [facility] Comment on above: Performed By: #### L 500.2500, L100.0100 ####[facility] [address] [place], [address] CO2 [Moles/Vol] 21.8 mmol/L Normal 21.0-32.0 [facility] Comment on above: Performed By: #### L 500.2500, L100.0100 ####[facility] [address] [place], [address] Creatinine [Mass/Vol] 1.89 mg/dL High 0.70-1.20 [facility] Comment on above: Performed By: #### L 500.2500, L100.0100 ####[facility] [address] [place], [address] ECRCL 20.66 ml/min Low 50-250 [facility] Comment on above: Performed By: #### L 500.2500, L100.0100 ####[facility] [address] [place], [address] GAP 9 Normal 5-15 [facility] Comment on above: Performed By: #### L 500.2500, L100.0100 ####[facility] [address] [place], [address] GFR/1.73 sq M.predicted among non-blacks MDRD (S/P/Bld) [Vol rate/Area] 26 mL/min/{1.73_m2} Low >60 [facility] Comment on above: Result Comment: mL/m in/1.73m2 CKD-EPI Creatinine Equation (2020) Performed By: #### L 500.2500, L100.0100 ####[facility] [address] [place], [address] Glucose [Mass/Vol] 82 mg/dL Normal 70-99 [facility] Comment on above: Performed By: #### L 500.2500, L100.0100 ####[facility] [address] [place], [address] Potassium [Moles/Vol] 3.6 mmol/L Normal 3.3-5.1 [facility] Comment on above: Performed By: #### L 500.2500, L100.0100 ####[facility] [address] [place], [address] Sodium [Moles/Vol] 143 mmol/L Normal 133-145 [facility] Comment on above: Performed By: #### L 500.2500, L100.0100 ####[facility] [address] [place], [address] Urea nitrogen [Mass/Vol] 53 mg/dL High 4-19 [facility] Comment on above: Performed By: #### L 500.2500, L100.0100 ####[facility] [address] [place], [address] Basophil percentageOrdered B y: Kevin Robles on 11-24-2024 Basophils/100 WBC (Bld) 0.2 % 0-1 [facility] Comment on above: Previous reported re sult: 0.6 %Edited by: COLETTE on 11/24/24:05 AMENDED REPORT 11/24/24514 BASO% previously reported as: 0.6 % Blood manual differential co mment interpretation (narrative result)Ordered By: Kevin Robles on 11-24-2024 Manual differential comment Adrián (Bld) [Interp] SCANNED [facility] Aneta cells LM Ql (Bld)Ordere d By: Kevin Robles on 11-24-2024 Crenated Cell RARE [facility] CBC W/Diff, Automatedon 04-0 PATH REV N/A Normal [facility] Comment on above: Result Comment: AMENDED REPORT 11/24/241643 PATH REV previously reported as: May foll Performed By: #### L 500.2500, L100.0100 ####[facility] [address] [place], [address] PATH REV N/A Normal [facility] Comment on above: Result Comment: AMENDED REPORT 11/24/241640 PATH REV previously reported as: May foll Performed By: #### L 100.0100 ####[facility] [address] [place], [address] Absolute Neut Normal 2.0-7.7 [facility] Comment on above: Result Comment: BARC ODE ERROR. REORDERED Performed By: #### L 500.2500, L100.0100 ####[facility] [address] [place], [address] HCT Normal 37-47 [facility] Comment on above: Result Comment: BARC ODE ERROR. REORDERED Performed By: #### L 500.2500, L100.0100 ####[facility] [address] [place], [address] HGB Normal 12.0-15.0 [facility] Comment on above: Result Comment: BARC ODE ERROR. REORDERED Performed By: #### L 500.2500, L100.0100 ####[facility] [address] [place], [address] MCH Normal 27.0-32.0 [facility] Comment on above: Result Comment: BARC ODE ERROR. REORDERED Performed By: #### L 500.2500, L100.0100 ####[facility] [address] [place], [address] MCHC Normal 32-36 [facility] Comment on above: Result Comment: BARC ODE ERROR. REORDERED Performed By: #### L 500.2500, L100.0100 ####[facility] [address] [place], [address] MCV Normal 81-99 [facility] Comment on above: Result Comment: BARC ODE ERROR. REORDERED Performed By: #### L 500.2500, L100.0100 ####[facility] [address] [place], [address] NEUT% Normal 47-70 [facility] Comment on above: Result Comment: BARC ODE ERROR. REORDERED Performed By: #### L 500.2500, L100.0100 ####[facility] [address] [place], [address] PLT Normal 150-450 [facility] Comment on above: Result Comment: BARC ODE ERROR. REORDERED Performed By: #### L 500.2500, L100.0100 ####[facility] [address] [place], [address] RBC Normal 4.2-5.4 [facility] Comment on above: Result Comment: BARC ODE ERROR. REORDERED Performed By: #### L 500.2500, L100.0100 ####[facility] [address] [place], [address] RDW CV Normal 11.6-14.6 [facility] Comment on above: Result Comment: BARC ODE ERROR. REORDERED Performed By: #### L 500.2500, L100.0100 ####[facility] [address] [place], [address] RDW SD Normal 35.1-43.9 [facility] Comment on above: Result Comment: BARC ODE ERROR. REORDERED Performed By: #### L 500.2500, L100.0100 ####[facility] [address] [place], [address] WBC Normal 4.4-11.0 [facility] Comment on above: Result Comment: BARC ODE ERROR. REORDERED Performed By: #### L 500.2500, L100.0100 ####[facility] [address] [place], [address] Carbon dioxide, total [Moles /volume] in Central venous bloodOrdered By: Kevin Robles on 11-24-2024 CO2 [Moles/Vol] 21.8 mmol/L 21.0-32.0 [facility] Chloride assayOrdered By: Nemesio Robles on 11-24-2024 Chloride [Moles/Vol] 112 mmol/L High 98-108 [facility] Crenated erythrocyte detecti on by light microscopyOrdered By: Kevin Robles on 11-24-2024 Aneta cells LM Ql (Bld) RARE [facility] Dacrocytes LM Ql (Bld)Ordere d By: Kevin Robles on 11-24-2024 Tear Drop Cells RARE [facility] Eosinophil percentageOrdered By: Kevin Robles on 11-24-2024 Eosinophils/100 WBC (Bld) 3.0 % 0-5 [facility] Comment on above: Previous reported re sult: 6.3 %Edited by: COLETTE on 11/24/24:0515 AMENDED REPORT 11/24/24514 EO% previously reported as: 6.3 H % Erythrocyte distribution wid th (RBC) [Ratio]Ordered By: Kevin Robles on 11-24-2024 Erythrocyte distribution width (RBC) [Entitic vol] 49.5 fL High 35.1-43.9 [facility] Comment on above: Previous reported re sult: 42.0 flEdited by: COLETTE on 11/24/24:0515 AMENDED REPORT 11/24/24514 RDW SD previously reported as: 42.0 fl Erythrocyte distribution wid th ratioOrdered By: Kevin Robles on 11-24-2024 Erythrocyte distribution width (RBC) [Ratio] 13.5 % 11.6-14.6 [facility] Comment on above: Previous reported re sult: 14.3 %Edited by: COLETTE on 11/24/24:0515 AMENDED REPORT 11/24/24514 RDW CV previously reported as: 14.3 % Erythrocyte distribution wid th standard deviationOrdered By: Kevin Robles on 11-24-2024 Erythrocyte distribution width (RBC) [Ratio] 49.5 fl High 35.1-43.9 [facility] Comment on above: Previous reported re sult: 42.0 flEdited by: COLETTE on 11/24/24:0515 AMENDED REPORT 11/24/24514 RDW SD previously reported as: 42.0 fl Estimation of creatinine ema aranceOrdered By: Kevin Robles on 11-24-2024 Estimated Creatinine Clearance Calc 20.66 ml/min Low 50-250 [facility] GFR/1.73 sq M.predicted lucinda g non-blacks MDRD (S/P/Bld) [Vol rate/Area]Ordered By: Kevin Robles on 11-24-2024 Estimated GFR (MDRD) Non-Af Amer 26 Low >60 [facility] Comment on above: mL/min/1.73m2 CKD-EP I Creatinine Equation (2020) Glomerular filtration rate ( GFR) estimation/1.73 sq m using serum, plasma, or whole bOrdered By: Kevin Robles on 11-24-2024 GFR/1.73 sq M.predicted among non-blacks MDRD (S/P/Bld) [Vol rate/Area] 26 mL/min/{1.73_m2} Low >60 [facility] Comment on above: mL/min/1.73m2 CKD-EP I Creatinine Equation (2020) Hematocrit Auto (Bld) [Volum e fraction]Ordered By: Kevin Robles on 11-24-2024 Hematocrit (Bld) [Volume fraction] 41.9 % 37-47 [facility] Comment on above: Previous reported re sult: 33.6 %Edited by: COLETTE on 11/24/24:0515 AMENDED REPORT 11/24/24514 HCT previously reported as: 33.6 L % Hemoglobin measurementOrdere d By: Kevin Robles on 11-24-2024 Hemoglobin (Bld) [Mass/Vol] 13.8 g/dL 12.0-15.0 [facility] Comment on above: Previous reported re sult: 11.4 g/dLEdited by: COLETTE on 11/24/24:0515 AMENDED REPORT 11/24/24514 HGB previously reported as: 11.4 L g/dL Immature granulocytes/100 WB C Auto (Bld)Ordered By: Keivn Robles on 11-24-2024 Immature granulocytes/100 WBC (Bld) 0.600 % 0.0-0.9 [facility] Comment on above: Previous reported re sult: 0.500 %Edited by: COLETTE on 11/24/24:0515 AMENDED REPORT 11/24/24514 IM GRAN % previously reported as: 0.500 % IG% - Immature Granulocytes (promyelocytes, myelocytes and metamyelocytes) > 1% indicates that a LEFT SHIFT is Present. Laboratory - Hematology and Cell countsOrdered By: Kevin Robles on 04-06-2025 Anisocytosis Ql (Bld) 1+ [facility] Lymphocytes Auto (Unsp spec) [#/Vol]Ordered By: Kevin Robles on 11-24-2024 Lymphocytes (Bld) [#/Vol] 0.96 10*3/uL 0.83-4.51 [facility] Comment on above: Previous reported re sult: 1.87 X10^3/uLEdited by: COLETTE on 11/24/24:0515 AMENDED REPORT 11/24/24514 Absolute Lymph previously reported as: 1.87 X10^3/uL Lymphocytes/100 WBC Auto (Un sp spec)Ordered By: Kevin Robles on 11-24-2024 Lymphocytes/100 WBC (Bld) 6.6 % Low 19-41 [facility] Comment on above: Previous reported re sult: 17.3 %Edited by: COLETTE on 11/24/24:0515 AMENDED REPORT 11/24/24514 LY% previously reported as: 17.3 L % MCV (mean corpuscular volume ) determinationOrdered By: Kevin Robles on 11-24-2024 MCV (RBC) [Entitic vol] 100.0 fL High 81-99 [facility] Comment on above: Previous reported re sult: 82.4 fLEdited by: COLETTE on 11/24/24:0515 AMENDED REPORT 11/24/24514 MCV previously reported as: 82.4 # fL Macrocytes Ql (Bld)Ordered B y: Kevin Robles on 11-24-2024 Macrocytosis 1+ [facility] Macrocytes detectionOrdered By: Kevin Robles on 11-24-2024 Macrocytes Ql (Bld) 1+ [facility] Manual differential comment Adrián (Bld) [Interp]Ordered By: Kevin Robles on 11-24-2024 Differential Comment SCANNED [facility] Mean corpuscular hemoglobin (MCH) determinationOrdered By: Kevin Robles on 11-24-2024 MCH (RBC) [Entitic mass] 32.9 pg High 27.0-32.0 [facility] Comment on above: Previous reported re sult: 27.9 pgEdited by: COLETTE on 11/24/24:05 AMENDED REPORT 11/24/24514 MCH previously reported as: 27.9 pg Mean corpuscular hemoglobin concentration (MCHC) determinationOrdered By: Kevin Robles on 11-24-2024 MCHC (RBC) [Mass/Vol] 32.9 g/dL 32-36 [facility] Comment on above: Previous reported re sult: 33.9 g/dLEdited by: COLETTE on 11/24/24:0515 AMENDED REPORT 11/24/24514 MCHC previously reported as: 33.9 g/dL Mean platelet volume determi nationOrdered By: Kevin Robles on 11-24-2024 Platelet mean volume (Bld) [Entitic vol] 11.2 fL 6.2-12.0 [facility] Comment on above: Previous reported re sult: 10.3 flEdited by: COLETTE on 11/24/24:05 AMENDED REPORT 11/24/24514 MPV previously reported as: 10.3 fl Monocyte percentageOrdered B y: Kevin Robles on 11-24-2024 Monocytes/100 WBC (Bld) 11.3 % High 0-10 [facility] Comment on above: Previous reported re sult: 6.1 %Edited by: COLETTE on 11/24/24:05 AMENDED REPORT 11/24/24514 MONO% previously reported as: 6.1 % Neutrophil percentageOrdered By: Kevin Robles on 11-24-2024 Neutrophils/100 WBC (Bld) 78.3 % High 47-70 [facility] Comment on above: Previous reported re sult: 69.2 %Edited by: COLETTE on 11/24/24:0515 AMENDED REPORT 11/24/24514 NEUT% previously reported as: 69.2 % No Panel InformationOrdered By: Kevin Robles on 11-24-2024 1+ [facility] Nucleated red blood cell per centageOrdered By: Kevin Robles on 11-24-2024 Nucleated RBC/100 WBC (Bld) [Ratio] 0 % 0-5 [facility] Ovalocyte detectionOrdered B y: Kevin Robles on 11-24-2024 Ovalocytes LM Ql (Bld) 1+ [facility] Ovalocytes LM Ql (Bld)Ordere d By: Kevin Robles on 11-24-2024 Ovalocytes 1+ [facility] Pathologist review Adrián (Unsp spec) [Interp]Ordered By: Kevin Robles on 11-24-2024 Differential Pathologist's Review Majo jurado [facility] Differential Pathologist's Review N/A [facility] Comment on above: Previous reported re sult: December Edited by: FARZAD on 11/24/24:1641 AMENDED REPORT 11/24/241640 PATH REV previously reported as: December Platelet countOrdered By: Nemesio Robles on 11-24-2024 Platelets (Bld) [#/Vol] 104 10*3/uL Low 150-450 [facility] Comment on above: Previous reported re sult: 252 K/ma3Feztve by: COLETTE on 11/24/24:0515 AMENDED REPORT 11/24/24514 PLT previously reported as: 252 K/mm3 Platelet estimateOrdered By: Kevin Robles on 11-24-2024 Platelets LM Ql (Bld) SLT DEC ADEQ [facility] Platelets LM Ql (Bld)Ordered By: Kevin Robles on 11-24-2024 Platelet Estimate SLT DEC [facility] Potassium (Unsp spec) [Mass/ Vol]Ordered By: Kevin Robles on 11-24-2024 Potassium [Moles/Vol] 3.6 mmol/L 3.3-5.1 [facility] Potassium measurement (mass/ volume)Ordered By: Kevin Robles on 11-24-2024 Potassium (Unsp spec) [Mass/Vol] 3.6 mmol/L 3.3-5.1 [facility] RBC Auto (Bld) [#/Vol]Ordere d By: Kevin Robles on 11-24-2024 RBC (Bld) [#/Vol] 4.19 10*6/uL Low 4.2-5.4 [facility] Comment on above: Previous reported re sult: 4.08 M/xl7Uqlosj by: COLETTE on 11/24/24:0515 AMENDED REPORT 11/24/24 0515 RBC previously reported as: 4.08 L M/mm3 Review by pathologistOrdered By: Kevin Robles on 11-24-2024 Pathologist review Adrián (Unsp spec) [Interp] N/A [facility] Comment on above: Previous reported re sult: Majo jurado Edited by: FARZAD on 11/24/24:1641 AMENDED REPORT 11/24/241640 PATH REV previously reported as: December Serum creatinine measurement (mass/volume)Ordered By: Kevin Robles on 11-24-2024 Creatinine [Mass/Vol] 1.89 mg/dL High 0.70-1.20 [facility] Serum glucose measurement (m ass/volume)Ordered By: Kevin Robles on 11-24-2024 Glucose [Mass/Vol] 82 mg/dL 70-99 [facility] Serum or plasma calcium azael urement (mass/volume)Ordered By: Kevin Robles on 11-24-2024 Calcium [Mass/Vol] 8.2 mg/dL 7.6-11.0 [facility] Serum or plasma urea nitroge n measurement (mass/volume)Ordered By: Kevin Robles on 11-24-2024 Urea nitrogen [Mass/Vol] 53 mg/dL High 4-19 [facility] Sodium levelOrdered By: Nii Robles on 11-24-2024 Sodium [Moles/Vol] 143 mmol/L 133-145 [facility] Teardrop cell detectionOrder ed By: Kevin Robles on 11-24-2024 Dacrocytes LM Ql (Bld) RARE [facility] White blood cell (WBC) count Ordered By: Kevin Robles on 11-24-2024 WBC (Bld) [#/Vol] 14.5 10*3/uL High 4.4-11.0 [facility] Comment on above: Previous reported re sult: 10.8 K/jr1Dcxoxt by: COLETTE on 11/24/24:0514 AMENDED REPORT 11/24/24 0514 WBC previously reported as: 10.8 K/mm3 Basic Metabolic Profile (BMP )on 11-23-2024 BUN/CRE 31.5 RATIO High 10-20 [facility] Comment on above: Performed By: #### L 500.2500, L100.0100 ####[facility] [address] [place], [address] Calcium [Mass/Vol] 8.2 mg/dL Normal 7.6-11.0 [facility] Comment on above: Performed By: #### L 500.2500, L100.0100 ####[facility] [address] [place], [address] Chloride [Moles/Vol] 110 mmol/L High 98-108 [facility] Comment on above: Performed By: #### L 500.2500, L100.0100 ####[facility] [address] [place], [address] CO2 [Moles/Vol] 21.9 mmol/L Normal 21.0-32.0 [facility] Comment on above: Performed By: #### L 500.2500, L100.0100 ####[facility] [address] [place], [address] Creatinine [Mass/Vol] 1.99 mg/dL High 0.70-1.20 [facility] Comment on above: Performed By: #### L 500.2500, L100.0100 ####[facility] [address] [place], [address] ECRCL 19.62 ml/min Low 50-250 [facility] Comment on above: Performed By: #### L 500.2500, L100.0100 ####[facility] [address] [place], [address] GAP 10 Normal 5-15 [facility] Comment on above: Performed By: #### L 500.2500, L100.0100 ####[facility] [address] [place], [address] GFR/1.73 sq M.predicted among non-blacks MDRD (S/P/Bld) [Vol rate/Area] 24 mL/min/{1.73_m2} Low >60 [facility] Comment on above: Result Comment: mL/m in/1.73m2 CKD-EPI Creatinine Equation (2020) Performed By: #### L 500.2500, L100.0100 ####[facility] [address] [place], [address] Glucose [Mass/Vol] 89 mg/dL Normal 70-99 [facility] Comment on above: Performed By: #### L 500.2500, L100.0100 ####[facility] [address] [place], [address] Potassium [Moles/Vol] 3.1 mmol/L Low 3.3-5.1 [facility] Comment on above: Performed By: #### L 500.2500, L100.0100 ####[facility] [address] [place], [address] Sodium [Moles/Vol] 141 mmol/L Normal 133-145 [facility] Comment on above: Performed By: #### L 500.2500, L100.0100 ####[facility] [address] [place], [address] Urea nitrogen [Mass/Vol] 63 mg/dL High 4-19 [facility] Comment on above: Performed By: #### L 500.2500, L100.0100 ####[facility] [address] [place], [address] Basic Metabolic Profile (BMP )on 11-22-2024 BUN/CRE 32.3 RATIO High 10-20 [facility] Comment on above: Performed By: #### L 500.2500, L501.2300, L100.0100, L501.5200 ####[facility] [address] [place], [address] Calcium [Mass/Vol] 8.2 mg/dL Normal 7.6-11.0 [facility] Comment on above: Performed By: #### L 500.2500, L501.2300, L100.0100, L501.5200 ####[facility] [address] [place], [address] Chloride [Moles/Vol] 111 mmol/L High 98-108 [facility] Comment on above: Performed By: #### L 500.2500, L501.2300, L100.0100, L501.5200 ####[facility] [address] [place], [address] CO2 [Moles/Vol] 20.8 mmol/L Low 21.0-32.0 [facility] Comment on above: Performed By: #### L 500.2500, L501.2300, L100.0100, L501.5200 ####[facility] [address] [place], [address] Creatinine [Mass/Vol] 2.29 mg/dL High 0.70-1.20 [facility] Comment on above: Performed By: #### L 500.2500, L501.2300, L100.0100, L501.5200 ####[facility] [address] [place], [address] ECRCL 16.91 ml/min Low 50-250 [facility] Comment on above: Performed By: #### L 500.2500, L501.2300, L100.0100, L501.5200 ####[facility] [address] [place], [address] GAP 11 Normal 5-15 [facility] Comment on above: Performed By: #### L 500.2500, L501.2300, L100.0100, L501.5200 ####[facility] [address] [place], [address] GFR/1.73 sq M.predicted among non-blacks MDRD (S/P/Bld) [Vol rate/Area] 21 mL/min/{1.73_m2} Low >60 [facility] Comment on above: Result Comment: mL/m in/1.73m2 CKD-EPI Creatinine Equation (2020) Performed By: #### L 500.2500, L501.2300, L100.0100, L501.5200 ####[facility] [address] [place], [address] Glucose [Mass/Vol] 82 mg/dL Normal 70-99 [facility] Comment on above: Performed By: #### L 500.2500, L501.2300, L100.0100, L501.5200 ####[facility] [address] [place], [address] Potassium [Moles/Vol] 3.1 mmol/L Low 3.3-5.1 [facility] Comment on above: Performed By: #### L 500.2500, L501.2300, L100.0100, L501.5200 ####[facility] [address] [place], [address] Sodium [Moles/Vol] 142 mmol/L Normal 133-145 [facility] Comment on above: Performed By: #### L 500.2500, L501.2300, L100.0100, L501.5200 ####[facility] [address] [place], [address] Urea nitrogen [Mass/Vol] 74 mg/dL High 4-19 [facility] Comment on above: Performed By: #### L 500.2500, L501.2300, L100.0100, L501.5200 ####[facility] [address] [place], [address] CBC W/Diff, Automatedon 04-0 PATH REV N/A Normal [facility] Comment on above: Result Comment: AMENDED REPORT 11/22/24 0819 PATH REV previously reported as: December Performed By: #### L 501.2300, L501.5200, L500.3400, L500.2500, L100.0100 ####[facility] [address] [place], [address] PLT EST SLT DEC Normal ADEQ [facility] Comment on above: Performed By: #### L 500.2500, L501.2300, L100.0100, L501.5200 ####[facility] [address] [place], [address] Culture, Blood (WB)on 2024 CUB [id number] LAC [id number] RA C Blood cultures x2, from two different sites No growth in 5 days. Normal [facility] Comment on above: Performed By: #### M 200.1000 ####[facility] [address] [place], [address] Magnesiumon 11-22-2024 Magnesium [Mass/Vol] 2.2 mg/dL Normal 1.5-2.2 [facility] Comment on above: Performed By: #### L 500.2500, L501.2300, L100.0100, L501.5200 ####[facility] [address] [place], [address] Magnesium (Unsp spec) [Mass/ Vol]Ordered By: Kevin Robles on 11-22-2024 Magnesium [Mass/Vol] 2.2 mg/dL 1.5-2.2 [facility] Magnesium measurement (mass/ volume)Ordered By: Kevin Robles on 11-22-2024 Magnesium (Unsp spec) [Mass/Vol] 2.2 mg/dL 1.5-2.2 [facility] Phosphoruson 11-22-2024 Phosphate [Mass/Vol] 3.4 mg/dL Normal 2.7-4.5 [facility] Comment on above: Performed By: #### L 500.2500, L501.2300, L100.0100, L501.5200 ####[facility] [address] [place], [address] Serum phosphorus measurement Ordered By: Kevin Robles on 11-22-2024 Phosphorus Level 3.4 mg/dL 2.7-4.5 [facility] Basic Metabolic Profile (BMP )on 11-21-2024 BUN/CRE 29.9 RATIO High 10-20 [facility] Comment on above: Performed By: #### L 500.3400, L100.0100, L500.2500 ####[facility] [address] [place], [address] Calcium [Mass/Vol] 8.5 mg/dL Normal 7.6-11.0 [facility] Comment on above: Performed By: #### L 500.3400, L100.0100, L500.2500 ####[facility] [address] [place], [address] Chloride [Moles/Vol] 114 mmol/L High 98-108 [facility] Comment on above: Performed By: #### L 500.3400, L100.0100, L500.2500 ####[facility] [address] [place], [address] CO2 [Moles/Vol] 22.2 mmol/L Normal 21.0-32.0 [facility] Comment on above: Performed By: #### L 500.3400, L100.0100, L500.2500 ####[facility] [address] [place], [address] Creatinine [Mass/Vol] 2.61 mg/dL High 0.70-1.20 [facility] Comment on above: Performed By: #### L 500.3400, L100.0100, L500.2500 ####[facility] [address] [place], [address] ECRCL 14.82 ml/min Low 50-250 [facility] Comment on above: Performed By: #### L 500.3400, L100.0100, L500.2500 ####[facility] [address] [place], [address] GAP 11 Normal 5-15 [facility] Comment on above: Performed By: #### L 500.3400, L100.0100, L500.2500 ####[facility] [address] [place], [address] GFR/1.73 sq M.predicted among non-blacks MDRD (S/P/Bld) [Vol rate/Area] 18 mL/min/{1.73_m2} Low >60 [facility] Comment on above: Result Comment: mL/m in/1.73m2 CKD-EPI Creatinine Equation (2020) Performed By: #### L 500.3400, L100.0100, L500.2500 ####[facility] [address] [place], [address] Glucose [Mass/Vol] 87 mg/dL Normal 70-99 [facility] Comment on above: Performed By: #### L 500.3400, L100.0100, L500.2500 ####[facility] [address] [place], [address] Potassium [Moles/Vol] 3.1 mmol/L Low 3.3-5.1 [facility] Comment on above: Performed By: #### L 500.3400, L100.0100, L500.2500 ####[facility] [address] [place], [address] Sodium [Moles/Vol] 148 mmol/L High 133-145 [facility] Comment on above: Performed By: #### L 500.3400, L100.0100, L500.2500 ####[facility] [address] [place], [address] Urea nitrogen [Mass/Vol] 78 mg/dL High 4-19 [facility] Comment on above: Performed By: #### L 500.3400, L100.0100, L500.2500 ####[facility] [address] [place], [address] Bilirubin directOrdered By: Kevin Robles on 11-21-2024 Bilirubin.direct [Mass/Vol] 0.60 mg/dL High 0.00-0.30 [facility] Bilirubin, totalOrdered By: Kevin Robles on 11-21-2024 Bilirubin [Mass/Vol] 1.04 mg/dL 0.00-1.30 [facility] CBC W/Diff, Automatedon Absolute Lymph 0.91 X10 3/uL Normal 0.83-4.51 [facility] Comment on above: Performed By: #### L 500.3400, L100.0100, L500.2500 ####[facility] [address] [place], [address] Absolute Neut 10.1 X10 3/uL High 2.0-7.7 [facility] Comment on above: Performed By: #### L 500.3400, L100.0100, L500.2500 ####[facility] [address] [place], [address] Basophils/100 WBC (Bld) 0.2 % Normal 0-1 [facility] Comment on above: Performed By: #### L 500.3400, L100.0100, L500.2500 ####[facility] [address] [place], [address] Eosinophils/100 WBC (Bld) 0.1 % Normal 0-5 [facility] Comment on above: Performed By: #### L 500.3400, L100.0100, L500.2500 ####[facility] [address] [place], [address] Erythrocyte distribution width (RBC) [Ratio] 14.0 % Normal 11.6-14.6 [facility] Comment on above: Performed By: #### L 500.3400, L100.0100, L500.2500 ####[facility] [address] [place], [address] Hematocrit (Bld) [Volume fraction] 44.6 % Normal 37-47 [facility] Comment on above: Performed By: #### L 500.3400, L100.0100, L500.2500 ####[facility] [address] [place], [address] Hemoglobin (Bld) [Mass/Vol] 14.3 g/dL Normal 12.0-15.0 [facility] Comment on above: Performed By: #### L 500.3400, L100.0100, L500.2500 ####[facility] [address] [place], [address] IG% 0.500 Normal 0.0-0.9 [facility] Comment on above: Result Comment: IG% - Immature Granulocytes (promyelocytes, myelocytes andmetamyelocytes) > 1% indicates that a LEFT SHIFT is Present. Performed By: #### L 500.3400, L100.0100, L500.2500 ####[facility] [address] [place], [address] Lymphocytes/100 WBC (Bld) 7.2 % Low 19-41 [facility] Comment on above: Performed By: #### L 500.3400, L100.0100, L500.2500 ####[facility] [address] [place], [address] MCH (RBC) [Entitic mass] 32.2 pg High 27.0-32.0 [facility] Comment on above: Performed By: #### L 500.3400, L100.0100, L500.2500 ####[facility] [address] [place], [address] MCHC (RBC) [Mass/Vol] 32.1 g/dL Normal 32-36 [facility] Comment on above: Performed By: #### L 500.3400, L100.0100, L500.2500 ####[facility] [address] [place], [address] MCV (RBC) [Entitic vol] 100.5 fL High 81-99 [facility] Comment on above: Performed By: #### L 500.3400, L100.0100, L500.2500 ####[facility] [address] [place], [address] Monocytes/100 WBC (Bld) 11.9 % High 0-10 [facility] Comment on above: Performed By: #### L 500.3400, L100.0100, L500.2500 ####[facility] [address] [place], [address] Neutrophils/100 WBC (Bld) 80.1 % High 47-70 [facility] Comment on above: Performed By: #### L 500.3400, L100.0100, L500.2500 ####[facility] [address] [place], [address] Nucleated RBC (Bld) [#/Vol] 0 10*3/uL Normal 0-5 [facility] Comment on above: Performed By: #### L 500.3400, L100.0100, L500.2500 ####[facility] [address] [place], [address] Platelet mean volume (Bld) [Entitic vol] 11.1 fL Normal 6.2-12.0 [facility] Comment on above: Performed By: #### L 500.3400, L100.0100, L500.2500 ####[facility] [address] [place], [address] Platelets (Bld) [#/Vol] 136 10*3/uL Low 150-450 [facility] Comment on above: Performed By: #### L 500.3400, L100.0100, L500.2500 ####[facility] [address] [place], [address] RBC (Bld) [#/Vol] 4.44 10*6/uL Normal 4.2-5.4 [facility] Comment on above: Performed By: #### L 500.3400, L100.0100, L500.2500 ####[facility] [address] [place], [address] RDW SD 52.2 fl High 35.1-43.9 [facility] Comment on above: Performed By: #### L 500.3400, L100.0100, L500.2500 ####[facility] [address] [place], [address] WBC (Bld) [#/Vol] 12.6 10*3/uL High 4.4-11.0 [facility] Comment on above: Performed By: #### L 500.3400, L100.0100, L500.2500 ####[facility] [address] [place], [address] Laboratory - Chemistry and C hemistry - challengeOrdered By: Kevin Robles on 11-21-2024 AST [Catalytic activity/Vol] 40 U/L High <32 [facility] Liver Profileon 11-21-2024 Albumin [Mass/Vol] 2.9 g/dL Low 3.4-4.8 [facility] Comment on above: Performed By: #### L 500.3400, L100.0100, L500.2500 ####[facility] [address] [place], [address] ALK PHOS 141 U/L High 35-104 [facility] Comment on above: Performed By: #### L 500.3400, L100.0100, L500.2500 ####[facility] [address] [place], [address] ALT [Catalytic activity/Vol] 141 U/L High <=34 [facility] Comment on above: Performed By: #### L 500.3400, L100.0100, L500.2500 ####[facility] [address] [place], [address] AST [Catalytic activity/Vol] 40 U/L High <=31 [facility] Comment on above: Performed By: #### L 500.3400, L100.0100, L500.2500 ####[facility] [address] [place], [address] Bilirubin [Mass/Vol] 1.04 mg/dL Normal 0.00-1.30 [facility] Comment on above: Performed By: #### L 500.3400, L100.0100, L500.2500 ####[facility] [address] [place], [address] Bilirubin.direct [Mass/Vol] 0.60 mg/dL High 0.00-0.30 [facility] Comment on above: Performed By: #### L 500.3400, L100.0100, L500.2500 ####[facility] [address] [place], [address] Globulin (S) [Mass/Vol] 2.5 g/dL Normal 2.2-4.2 [facility] Comment on above: Performed By: #### L 500.3400, L100.0100, L500.2500 ####[facility] [address] [place], [address] T PROT 5.4 g/dL Low 5.9-8.4 [facility] Comment on above: Performed By: #### L 500.3400, L100.0100, L500.2500 ####[facility] [address] [place], [address] No Panel InformationOrdered By: Kevin Robles on 11-21-2024 40 U/L High <32 [facility] Serum globulin measurementOr dered By: Kevin Robles on 11-21-2024 Globulin (S) [Mass/Vol] 2.5 g/dL 2.2-4.2 [facility] Serum or plasma alanine colbert otransferase (ALT) measurementOrdered By: Kevin Robles on 11-21-2024 ALT [Catalytic activity/Vol] 141 U/L High <35 [facility] Serum or plasma albumin azael urement (mass/volume)Ordered By: Kevin Robles on 11-21-2024 Albumin [Mass/Vol] 2.9 g/dL Low 3.4-4.8 [facility] Serum or plasma alkaline selvin sphatase measurementOrdered By: Kevin Robles on 11-21-2024 ALP [Catalytic activity/Vol] 141 U/L High 35-104 [facility] Total proteinOrdered By: Spenser Robles on 11-21-2024 Protein [Mass/Vol] 5.4 g/dL Low 5.9-8.4 [facility] Basic Metabolic Profile (BMP )on 11-20-2024 BUN/CRE 28.9 RATIO High 10-20 [facility] Comment on above: Performed By: #### L 100.0100, L500.3400, L500.2500 ####[facility] [address] [place], [address] Calcium [Mass/Vol] 8.5 mg/dL Normal 7.6-11.0 [facility] Comment on above: Performed By: #### L 100.0100, L500.3400, L500.2500 ####[facility] [address] [place], [address] Chloride [Moles/Vol] 112 mmol/L High 98-108 [facility] Comment on above: Performed By: #### L 100.0100, L500.3400, L500.2500 ####[facility] [address] [place], [address] CO2 [Moles/Vol] 20.6 mmol/L Low 21.0-32.0 [facility] Comment on above: Performed By: #### L 100.0100, L500.3400, L500.2500 ####[facility] [address] [place], [address] Creatinine [Mass/Vol] 2.62 mg/dL High 0.70-1.20 [facility] Comment on above: Performed By: #### L 100.0100, L500.3400, L500.2500 ####[facility] [address] [place], [address] ECRCL 14.47 ml/min Low 50-250 [facility] Comment on above: Performed By: #### L 100.0100, L500.3400, L500.2500 ####[facility] [address] [place], [address] GAP 12 Normal 5-15 [facility] Comment on above: Performed By: #### L 100.0100, L500.3400, L500.2500 ####[facility] [address] [place], [address] GFR/1.73 sq M.predicted among non-blacks MDRD (S/P/Bld) [Vol rate/Area] 18 mL/min/{1.73_m2} Low >60 [facility] Comment on above: Result Comment: mL/m in/1.73m2 CKD-EPI Creatinine Equation (2020) Performed By: #### L 100.0100, L500.3400, L500.2500 ####[facility] [address] [place], [address] Glucose [Mass/Vol] 123 mg/dL High 70-99 [facility] Comment on above: Performed By: #### L 100.0100, L500.3400, L500.2500 ####[facility] [address] [place], [address] Potassium [Moles/Vol] 3.8 mmol/L Normal 3.3-5.1 [facility] Comment on above: Performed By: #### L 100.0100, L500.3400, L500.2500 ####[facility] [address] [place], [address] Sodium [Moles/Vol] 145 mmol/L Normal 133-145 [facility] Comment on above: Performed By: #### L 100.0100, L500.3400, L500.2500 ####[facility] [address] [place], [address] Urea nitrogen [Mass/Vol] 76 mg/dL High 4-19 [facility] Comment on above: Performed By: #### L 100.0100, L500.3400, L500.2500 ####[facility] [address] [place], [address] CBC W/Diff, Automatedon 04-0 2-2024 Absolute Lymph 0.65 X10 3/uL Low 0.83-4.51 [facility] Comment on above: Performed By: #### L 100.0100, L500.3400, L500.2500 ####[facility] [address] [place], [address] Absolute Neut 10.6 X10 3/uL High 2.0-7.7 [facility] Comment on above: Performed By: #### L 100.0100, L500.3400, L500.2500 ####[facility] [address] [place], [address] Basophils/100 WBC (Bld) 0.1 % Normal 0-1 [facility] Comment on above: Performed By: #### L 100.0100, L500.3400, L500.2500 ####[facility] [address] [place], [address] Eosinophils/100 WBC (Bld) 0.0 % Normal 0-5 [facility] Comment on above: Performed By: #### L 100.0100, L500.3400, L500.2500 ####[facility] [address] [place], [address] Erythrocyte distribution width (RBC) [Ratio] 14.0 % Normal 11.6-14.6 [facility] Comment on above: Performed By: #### L 100.0100, L500.3400, L500.2500 ####[facility] [address] [place], [address] Hematocrit (Bld) [Volume fraction] 47.4 % High 37-47 [facility] Comment on above: Performed By: #### L 100.0100, L500.3400, L500.2500 ####[facility] [address] [place], [address] Hemoglobin (Bld) [Mass/Vol] 15.0 g/dL Normal 12.0-15.0 [facility] Comment on above: Performed By: #### L 100.0100, L500.3400, L500.2500 ####[facility] [address] [place], [address] IG% 0.700 Normal 0.0-0.9 [facility] Comment on above: Result Comment: IG% - Immature Granulocytes (promyelocytes, myelocytes andmetamyelocytes) > 1% indicates that a LEFT SHIFT is Present. Performed By: #### L 100.0100, L500.3400, L500.2500 ####[facility] [address] [place], [address] Lymphocytes/100 WBC (Bld) 5.4 % Low 19-41 [facility] Comment on above: Performed By: #### L 100.0100, L500.3400, L500.2500 ####[facility] [address] [place], [address] MCH (RBC) [Entitic mass] 32.3 pg High 27.0-32.0 [facility] Comment on above: Performed By: #### L 100.0100, L500.3400, L500.2500 ####[facility] [address] [place], [address] MCHC (RBC) [Mass/Vol] 31.6 g/dL Low 32-36 [facility] Comment on above: Performed By: #### L 100.0100, L500.3400, L500.2500 ####[facility] [address] [place], [address] MCV (RBC) [Entitic vol] 101.9 fL High 81-99 [facility] Comment on above: Performed By: #### L 100.0100, L500.3400, L500.2500 ####[facility] [address] [place], [address] Monocytes/100 WBC (Bld) 6.4 % Normal 0-10 [facility] Comment on above: Performed By: #### L 100.0100, L500.3400, L500.2500 ####[facility] [address] [place], [address] Neutrophils/100 WBC (Bld) 87.4 % High 47-70 [facility] Comment on above: Performed By: #### L 100.0100, L500.3400, L500.2500 ####[facility] [address] [place], [address] Nucleated RBC (Bld) [#/Vol] 0 10*3/uL Normal 0-5 [facility] Comment on above: Performed By: #### L 100.0100, L500.3400, L500.2500 ####[facility] [address] [place], [address] Platelet mean volume (Bld) [Entitic vol] 11.2 fL Normal 6.2-12.0 [facility] Comment on above: Performed By: #### L 100.0100, L500.3400, L500.2500 ####[facility] [address] [place], [address] Platelets (Bld) [#/Vol] 153 10*3/uL Normal 150-450 [facility] Comment on above: Performed By: #### L 100.0100, L500.3400, L500.2500 ####[facility] [address] [place], [address] RBC (Bld) [#/Vol] 4.65 10*6/uL Normal 4.2-5.4 [facility] Comment on above: Performed By: #### L 100.0100, L500.3400, L500.2500 ####[facility] [address] [place], [address] RDW SD 53.1 fl High 35.1-43.9 [facility] Comment on above: Performed By: #### L 100.0100, L500.3400, L500.2500 ####[facility] [address] [place], [address] WBC (Bld) [#/Vol] 12.1 10*3/uL High 4.4-11.0 [facility] Comment on above: Performed By: #### L 100.0100, L500.3400, L500.2500 ####[facility] [address] [place], [address] Liver Profileon 11-20-2024 Albumin [Mass/Vol] 3.3 g/dL Low 3.4-4.8 [facility] Comment on above: Performed By: #### L 100.0100, L500.3400, L500.2500 ####[facility] [address] [place], [address] ALK PHOS 116 U/L High 35-104 [facility] Comment on above: Performed By: #### L 100.0100, L500.3400, L500.2500 ####[facility] [address] [place], [address] ALT [Catalytic activity/Vol] 185 U/L High <=34 [facility] Comment on above: Performed By: #### L 100.0100, L500.3400, L500.2500 ####[facility] [address] [place], [address] AST [Catalytic activity/Vol] 58 U/L High <=31 [facility] Comment on above: Performed By: #### L 100.0100, L500.3400, L500.2500 ####[facility] [address] [place], [address] Bilirubin [Mass/Vol] 0.86 mg/dL Normal 0.00-1.30 [facility] Comment on above: Performed By: #### L 100.0100, L500.3400, L500.2500 ####[facility] [address] [place], [address] Bilirubin.direct [Mass/Vol] 0.48 mg/dL High 0.00-0.30 [facility] Comment on above: Performed By: #### L 100.0100, L500.3400, L500.2500 ####[facility] [address] [place], [address] Globulin (S) [Mass/Vol] 2.7 g/dL Normal 2.2-4.2 [facility] Comment on above: Performed By: #### L 100.0100, L500.3400, L500.2500 ####[facility] [address] [place], [address] T PROT 6.0 g/dL Normal 5.9-8.4 [facility] Comment on above: Performed By: #### L 100.0100, L500.3400, L500.2500 ####[facility] [address] [place], [address] Basic Metabolic Profile (BMP )on 11-19-2024 BUN/CRE 28.3 RATIO High 10-20 [facility] Comment on above: Performed By: #### L 501.2300, L501.5200, L500.3400, L500.2500, L100.0100 ####[facility] [address] [place], [address] Calcium [Mass/Vol] 8.5 mg/dL Normal 7.6-11.0 [facility] Comment on above: Performed By: #### L 501.2300, L501.5200, L500.3400, L500.2500, L100.0100 ####[facility] [address] [place], [address] Chloride [Moles/Vol] 113 mmol/L High 98-108 [facility] Comment on above: Performed By: #### L 501.2300, L501.5200, L500.3400, L500.2500, L100.0100 ####[facility] [address] [place], [address] CO2 [Moles/Vol] 21.0 mmol/L Normal 21.0-32.0 [facility] Comment on above: Performed By: #### L 501.2300, L501.5200, L500.3400, L500.2500, L100.0100 ####[facility] [address] [place], [address] Creatinine [Mass/Vol] 2.42 mg/dL High 0.70-1.20 [facility] Comment on above: Performed By: #### L 501.2300, L501.5200, L500.3400, L500.2500, L100.0100 ####[facility] [address] [place], [address] ECRCL 15.57 ml/min Low 50-250 [facility] Comment on above: Performed By: #### L 501.2300, L501.5200, L500.3400, L500.2500, L100.0100 ####[facility] [address] [place], [address] GAP 12 Normal 5-15 [facility] Comment on above: Performed By: #### L 501.2300, L501.5200, L500.3400, L500.2500, L100.0100 ####[facility] [address] [place], [address] GFR/1.73 sq M.predicted among non-blacks MDRD (S/P/Bld) [Vol rate/Area] 19 mL/min/{1.73_m2} Low >60 [facility] Comment on above: Result Comment: mL/m in/1.73m2 CKD-EPI Creatinine Equation (2020) Performed By: #### L 501.2300, L501.5200, L500.3400, L500.2500, L100.0100 ####[facility] [address] [place], [address] Glucose [Mass/Vol] 105 mg/dL High 70-99 [facility] Comment on above: Performed By: #### L 501.2300, L501.5200, L500.3400, L500.2500, L100.0100 ####[facility] [address] [place], [address] Potassium [Moles/Vol] 4.1 mmol/L Normal 3.3-5.1 [facility] Comment on above: Performed By: #### L 501.2300, L501.5200, L500.3400, L500.2500, L100.0100 ####[facility] [address] [place], [address] Sodium [Moles/Vol] 146 mmol/L High 133-145 [facility] Comment on above: Performed By: #### L 501.2300, L501.5200, L500.3400, L500.2500, L100.0100 ####[facility] [address] [place], [address] Urea nitrogen [Mass/Vol] 69 mg/dL High 4-19 [facility] Comment on above: Performed By: #### L 501.2300, L501.5200, L500.3400, L500.2500, L100.0100 ####[facility] [address] [place], [address] Consultation - Nephrologyon 11-19-2024 Consultation - Nephrology Normal [facility] Electrocardiogram reportOrde red By: Brendan Mclain on 11-19-2024 EKG study [facility] Cardiovascular Services [address] [facility] [place] [address] 12 Lead EKG 11/17/24 1314 MR#: [id number] Acct: [id number] Name: LESLI ROSALES Rep #:[id number] : [...] Abnormal ECG Confirmed by RAYNE POLANCO, BRENDAN ([id number]), purchase request editor NABEEL GILLIS ([id number]) on 11/19/2024 8:27:37 AM Referred By: Confirmed By: BRENDAN MCLAIN MD 11/19/24826 Date _ Brendan Mclain MD CC: Dr. Kevin Robles MD; Dr. Reza Pedraza DO; NISA GUTHRIE ~ Signed [facility] Work Phone: Liver Profileon 11-19-2024 Albumin [Mass/Vol] 3.1 g/dL Low 3.4-4.8 [facility] Comment on above: Performed By: #### L 501.2300, L501.5200, L500.3400, L500.2500, L100.0100 ####[facility] [address] [place], [address] ALK PHOS 107 U/L High 35-104 [facility] Comment on above: Performed By: #### L 501.2300, L501.5200, L500.3400, L500.2500, L100.0100 ####[facility] [address] [place], [address] ALT [Catalytic activity/Vol] 212 U/L High <=34 [facility] Comment on above: Performed By: #### L 501.2300, L501.5200, L500.3400, L500.2500, L100.0100 ####[facility] [address] [place], [address] AST [Catalytic activity/Vol] 86 U/L High <=31 [facility] Comment on above: Performed By: #### L 501.2300, L501.5200, L500.3400, L500.2500, L100.0100 ####[facility] [address] [place], [address] Bilirubin [Mass/Vol] 0.65 mg/dL Normal 0.00-1.30 [facility] Comment on above: Performed By: #### L 501.2300, L501.5200, L500.3400, L500.2500, L100.0100 ####[facility] [address] [place], [address] Bilirubin.direct [Mass/Vol] 0.38 mg/dL High 0.00-0.30 [facility] Comment on above: Performed By: #### L 501.2300, L501.5200, L500.3400, L500.2500, L100.0100 ####[facility] [address] [place], [address] Globulin (S) [Mass/Vol] 2.5 g/dL Normal 2.2-4.2 [facility] Comment on above: Performed By: #### L 501.2300, L501.5200, L500.3400, L500.2500, L100.0100 ####[facility] [address] [place], [address] T PROT 5.6 g/dL Low 5.9-8.4 [facility] Comment on above: Performed By: #### L 501.2300, L501.5200, L500.3400, L500.2500, L100.0100 ####[facility] [address] [place], [address] Magnesiumon 11-19-2024 Magnesium [Mass/Vol] 2.2 mg/dL Normal 1.5-2.2 [facility] Comment on above: Performed By: #### L 501.2300, L501.5200, L500.3400, L500.2500, L100.0100 ####[facility] [address] [place], [address] Phosphoruson 11-19-2024 Phosphate [Mass/Vol] 5.8 mg/dL High 2.7-4.5 [facility] Comment on above: Performed By: #### L 501.2300, L501.5200, L500.3400, L500.2500, L100.0100 ####[facility] [address] [place], [address] Ammoniaon 11-18-2024 Ammonia (P) [Moles/Vol] 117.0 umol/L High 11-51 [facility] Comment on above: Performed By: #### L 503.5510 ####[facility] [address] [place], [address] Comprehensive Metabolic Prof ilon 11-18-2024 Albumin [Mass/Vol] 3.4 g/dL Normal 3.4-4.8 [facility] Comment on above: Performed By: #### L 100.0100, L501.9520, L500.4050, L300.3900 ####[facility] [address] [place], [address] Albumin/Globulin [Mass ratio] 1.1 {ratio} Normal 0.9-2.4 [facility] Comment on above: Performed By: #### L 100.0100, L501.9520, L500.4050, L300.3900 ####[facility] [address] [place], [address] ALK PHOS 141 U/L High 35-104 [facility] Comment on above: Performed By: #### L 100.0100, L501.9520, L500.4050, L300.3900 ####[facility] [address] [place], [address] ALT [Catalytic activity/Vol] 325 U/L High <=34 [facility] Comment on above: Performed By: #### L 100.0100, L501.9520, L500.4050, L300.3900 ####[facility] [address] [place], [address] AST [Catalytic activity/Vol] 224 U/L High <=31 [facility] Comment on above: Performed By: #### L 100.0100, L501.9520, L500.4050, L300.3900 ####[facility] [address] [place], [address] Bilirubin [Mass/Vol] 0.74 mg/dL Normal 0.00-1.30 [facility] Comment on above: Performed By: #### L 100.0100, L501.9520, L500.4050, L300.3900 ####[facility] [address] [place], [address] BUN/CRE 24.7 RATIO High 10-20 [facility] Comment on above: Performed By: #### L 100.0100, L501.9520, L500.4050, L300.3900 ####[facility] [address] [place], [address] Calcium [Mass/Vol] 9.0 mg/dL Normal 7.6-11.0 [facility] Comment on above: Performed By: #### L 100.0100, L501.9520, L500.4050, L300.3900 ####[facility] [address] [place], [address] Chloride [Moles/Vol] 106 mmol/L Normal 98-108 [facility] Comment on above: Performed By: #### L 100.0100, L501.9520, L500.4050, L300.3900 ####[facility] [address] [place], [address] CO2 [Moles/Vol] 20.1 mmol/L Low 21.0-32.0 [facility] Comment on above: Performed By: #### L 100.0100, L501.9520, L500.4050, L300.3900 ####[facility] [address] [place], [address] Creatinine [Mass/Vol] 2.24 mg/dL High 0.70-1.20 [facility] Comment on above: Performed By: #### L 100.0100, L501.9520, L500.4050, L300.3900 ####[facility] [address] [place], [address] ECRCL 16.06 ml/min Low 50-250 [facility] Comment on above: Performed By: #### L 100.0100, L501.9520, L500.4050, L300.3900 ####[facility] [address] [place], [address] GAP 14 Normal 5-15 [facility] Comment on above: Performed By: #### L 100.0100, L501.9520, L500.4050, L300.3900 ####[facility] [address] [place], [address] GFR/1.73 sq M.predicted among non-blacks MDRD (S/P/Bld) [Vol rate/Area] 21 mL/min/{1.73_m2} Low >60 [facility] Comment on above: Result Comment: mL/m in/1.73m2 CKD-EPI Creatinine Equation (2020) Performed By: #### L 100.0100, L501.9520, L500.4050, L300.3900 ####[facility] [address] [place], [address] Globulin (S) [Mass/Vol] 3.2 g/dL Normal 2.2-4.2 [facility] Comment on above: Performed By: #### L 100.0100, L501.9520, L500.4050, L300.3900 ####[facility] [address] [place], [address] Glucose [Mass/Vol] 140 mg/dL High 70-99 [facility] Comment on above: Performed By: #### L 100.0100, L501.9520, L500.4050, L300.3900 ####[facility] [address] [place], [address] Potassium [Moles/Vol] 5.0 mmol/L Normal 3.3-5.1 [facility] Comment on above: Performed By: #### L 100.0100, L501.9520, L500.4050, L300.3900 ####[facility] [address] [place], [address] Sodium [Moles/Vol] 140 mmol/L Normal 133-145 [facility] Comment on above: Performed By: #### L 100.0100, L501.9520, L500.4050, L300.3900 ####[facility] [address] [place], [address] T PROT 6.6 g/dL Normal 5.9-8.4 [facility] Comment on above: Performed By: #### L 100.0100, L501.9520, L500.4050, L300.3900 ####[facility] [address] [place], [address] Urea nitrogen [Mass/Vol] 55 mg/dL High 4-19 [facility] Comment on above: Performed By: #### L 100.0100, L501.9520, L500.4050, L300.3900 ####[facility] [address] [place], [address] Echocardiogram study reportO rdered By: Brendan Mclain on 11-18-2024 Study report [facility] Cardiovascular Services [address] [place] [address] Echo Complete W/ Contrast 11/18/24 0904 MR#: [id number] Acct: [id number] Name: LESLI ROSALES Rep #:[id number] : [...] 0.60 SHIVAM(I,D): 1.7 cm2 SHIVAM(V,D): 1.5 cm2 __ LV V1 max: 137.7 cm/sec SV(LVOT): 73.4 [...] Kevin Robles MD; Dr. Lorna Salvador MD; NISA GUTHRIE ~ Date Dictated: 11/18/24 0904 Date Transcribed: 11/18/24 132 Coat Baster: Signed [facility] Work Phone: International normalized rat io (INR) calculationOrdered By: Elsy Perdomo on 11-18-2024 INR Coag (Bld) [Relative time] 1.5 {INR} [facility] Prothrombin Time w/INRon INR Coag (PPP) [Relative time] 1.5 {INR} Normal [facility] Comment on above: Performed By: #### L 100.0100, L501.9531, L500.6640, L300.3907 ####[facility] [address] [place], [address] PT Coag (PPP) [Time] 18.8 s High 11.7-14.9 [facility] Comment on above: Performed By: #### L 100.0100, L501.9520, L500.4050, L300.3900 ####[facility] [address] [place], [address] Prothrombin timeOrdered By: Elsy Perdomo on 11-18-2024 PT Coag (PPP) [Time] 18.8 s High 11.7-14.9 [facility] Serum or plasma albumin/glob ulin mass ratioOrdered By: Elsy Perdomo on 11-18-2024 Albumin/Globulin [Mass ratio] 1.1 {ratio} 0.9-2.4 [facility] TSH DL <= 0.005 mIU/L QnOrde red By: Elsy Perdomo on 11-18-2024 Thyroid Stimulating Hormone (TSH) 0.997 uIU/mL 0.300-4.20 0 [facility] TSH Qn 0.997 uIU/mL 0.300-4.20 0 [facility] Thyroid Stim Hormone (TSH)on 11-18-2024 TSH 0.997 uIU/mL Normal 0.300-4.20 0 [facility] Comment on above: Performed By: #### L 100.0100, L501.9520, L500.4050, L300.3900 ####[facility] [address] [place], [address] Venous blood ammonia measure mentOrdered By: Kevin Robles on 11-18-2024 Ammonia (P) [Moles/Vol] 117.0 umol/L High 11-51 [facility] 12 Lead EKGon 11-17-2024 12 Lead EKG Normal [facility] Absolute neutrophil countOrd ered By: Reza Pedraza on 11-17-2024 Neutrophils (Bld) [#/Vol] 18.1 10*3/uL High 2.0-7.7 [facility] Anion gap in Serum or Plasma Ordered By: Reza Pedraza on 11-17-2024 Anion gap [Moles/Vol] 18 mmol/L High 5-15 [facility] BUN/creatinine ratioOrdered By: Reza Pedraza on 11-17-2024 Urea nitrogen/Creatinine [Mass ratio] 18.2 mg/mg 10-20 [facility] Basophil percentageOrdered B y: Reza Pedraza on 11-17-2024 Basophils/100 WBC (Bld) 0.3 % 0-1 [facility] Bilirubin Test strip Ql (U)O rdered By: Reza Pedraza on 11-17-2024 Bilirubin Ql (U) Negative Negative [facility] Bilirubin, totalOrdered By: Reza Pedraza on 11-17-2024 Bilirubin [Mass/Vol] 1.19 mg/dL 0.00-1.30 [facility] Blood cultureOrdered By: Arnav Pedraza on 11-17-2024 Bacteria identified Cx Nom (Bld) No growth in [address] [facility] [address] Chest, Abd, Pelvis WO Con ton 11-17-2024 CT Chest, Abd, Pelvis WO Cont Normal [facility] Carbon dioxide, total [Moles /volume] in Central venous bloodOrdered By: Reza Pedraza on 11-17-2024 CO2 [Moles/Vol] 21.9 mmol/L 21.0-32.0 [facility] Chest 1 View (Portable)on Chest 1 View (Portable) Normal [facility] Chloride assayOrdered By: Angel Pedraza on 11-17-2024 Chloride [Moles/Vol] 102 mmol/L 98-108 [facility] Comprehensive Metabolic Prof ilon 11-17-2024 Albumin [Mass/Vol] 3.4 g/dL Normal 3.4-4.8 [facility] Comment on above: Performed By: #### L 100.0100, L501.2450, L500.4050, L501.2300, L501.5200 ####[facility] [address] [place], [place], [id number] Albumin/Globulin [Mass ratio] 1.0 {ratio} Normal 0.9-2.4 [facility] Comment on above: Performed By: #### L 100.0100, L501.2450, L500.4050, L501.2300, L501.5200 ####[facility] [address] [place], [address] ALK PHOS 143 U/L High 35-104 [facility] Comment on above: Performed By: #### L 100.0100, L501.2450, L500.4050, L501.2300, L501.5200 ####[facility] [address] [place], [address] ALT [Catalytic activity/Vol] 360 U/L High <=34 [facility] Comment on above: Performed By: #### L 100.0100, L501.2450, L500.4050, L501.2300, L501.5200 ####[facility] [address] [place], [address] AST [Catalytic activity/Vol] 294 U/L High <=31 [facility] Comment on above: Result Comment: Hemo lysis present, Results??could be affected.?? Performed By: #### L 100.0100, L501.2450, L500.4050, L501.2300, L501.5200 ####[facility] [address] [place], [address] Bilirubin [Mass/Vol] 0.97 mg/dL Normal 0.00-1.30 [facility] Comment on above: Performed By: #### L 100.0100, L501.2450, L500.4050, L501.2300, L501.5200 ####[facility] [address] [place], [address] BUN/CRE 22.7 RATIO High 10-20 [facility] Comment on above: Performed By: #### L 100.0100, L501.2450, L500.4050, L501.2300, L501.5200 ####[facility] [address] [place], [address] Calcium [Mass/Vol] 8.7 mg/dL Normal 7.6-11.0 [facility] Comment on above: Performed By: #### L 100.0100, L501.2450, L500.4050, L501.2300, L501.5200 ####[facility] [address] [place], [address] Chloride [Moles/Vol] 106 mmol/L Normal 98-108 [facility] Comment on above: Performed By: #### L 100.0100, L501.2450, L500.4050, L501.2300, L501.5200 ####[facility] [address] [place], [address] CO2 [Moles/Vol] 20.1 mmol/L Low 21.0-32.0 [facility] Comment on above: Performed By: #### L 100.0100, L501.2450, L500.4050, L501.2300, L501.5200 ####[facility] [address] [place], [address] Creatinine [Mass/Vol] 2.22 mg/dL High 0.70-1.20 [facility] Comment on above: Performed By: #### L 100.0100, L501.2450, L500.4050, L501.2300, L501.5200 ####[facility] [address] [place], [address] ECRCL 16.20 ml/min Low 50-250 [facility] Comment on above: Performed By: #### L 100.0100, L501.2450, L500.4050, L501.2300, L501.5200 ####[facility] [address] [place], [address] GAP 14 Normal 5-15 [facility] Comment on above: Performed By: #### L 100.0100, L501.2450, L500.4050, L501.2300, L501.5200 ####[facility] [address] [place], [address] GFR/1.73 sq M.predicted among non-blacks MDRD (S/P/Bld) [Vol rate/Area] 21 mL/min/{1.73_m2} Low >60 [facility] Comment on above: Result Comment: mL/m in/1.73m2 CKD-EPI Creatinine Equation (2020) Performed By: #### L 100.0100, L501.2450, L500.4050, L501.2300, L501.5200 ####[facility] [address] [place], [address] Globulin (S) [Mass/Vol] 3.2 g/dL Normal 2.2-4.2 [facility] Comment on above: Performed By: #### L 100.0100, L501.2450, L500.4050, L501.2300, L501.5200 ####[facility] [address] [place], [address] Glucose [Mass/Vol] 150 mg/dL High 70-99 [facility] Comment on above: Performed By: #### L 100.0100, L501.2450, L500.4050, L501.2300, L501.5200 ####[facility] [address] [place], [address] Potassium [Moles/Vol] 5.4 mmol/L High 3.3-5.1 [facility] Comment on above: Result Comment: Hemo lysis present, Results??could be affected.?? Performed By: #### L 100.0100, L501.2450, L500.4050, L501.2300, L501.5200 ####[facility] [address] [place], [address] Sodium [Moles/Vol] 140 mmol/L Normal 133-145 [facility] Comment on above: Performed By: #### L 100.0100, L501.2450, L500.4050, L501.2300, L501.5200 ####[facility] [address] [place], [address] T PROT 6.6 g/dL Normal 5.9-8.4 [facility] Comment on above: Performed By: #### L 100.0100, L501.2450, L500.4050, L501.2300, L501.5200 ####[facility] [address] [place], [address] Urea nitrogen [Mass/Vol] 50 mg/dL High 4-19 [facility] Comment on above: Performed By: #### L 100.0100, L501.2450, L500.4050, L501.2300, L501.5200 ####[facility] [address] [place], [address] Albumin [Mass/Vol] 3.7 g/dL Normal 3.4-4.8 [facility] Comment on above: Performed By: #### L 503.6005, L100.0100, L500.4050, L501.4021, L503.7505 ####[facility] [address] [place], [address] Albumin/Globulin [Mass ratio] 1.0 {ratio} Normal 0.9-2.4 [facility] Comment on above: Performed By: #### L 503.6005, L100.0100, L500.4050, L501.4021, L503.7505 ####[facility] [address] [place], [address] ALK PHOS 168 U/L High 35-104 [facility] Comment on above: Performed By: #### L 503.6005, L100.0100, L500.4050, L501.4021, L503.7505 ####[facility] [address] [place], [address] ALT [Catalytic activity/Vol] 435 U/L High <=34 [facility] Comment on above: Performed By: #### L 503.6005, L100.0100, L500.4050, L501.4021, L503.7505 ####[facility] [address] [place], [address] AST [Catalytic activity/Vol] 474 U/L High <=31 [facility] Comment on above: Performed By: #### L 503.6005, L100.0100, L500.4050, L501.4021, L503.7505 ####[facility] [address] [place], [address] Bilirubin [Mass/Vol] 1.19 mg/dL Normal 0.00-1.30 [facility] Comment on above: Performed By: #### L 503.6005, L100.0100, L500.4050, L501.4021, L503.7505 ####[facility] [address] [place], [address] BUN/CRE 18.2 RATIO Normal 10-20 [facility] Comment on above: Performed By: #### L 503.6005, L100.0100, L500.4050, L501.4021, L503.7505 ####[facility] [address] [place], [address] Calcium [Mass/Vol] 9.6 mg/dL Normal 7.6-11.0 [facility] Comment on above: Performed By: #### L 503.6005, L100.0100, L500.4050, L501.4021, L503.7505 ####[facility] [address] [place], [address] Chloride [Moles/Vol] 102 mmol/L Normal 98-108 [facility] Comment on above: Performed By: #### L 503.6005, L100.0100, L500.4050, L501.4021, L503.7505 ####[facility] [address] [place], [address] CO2 [Moles/Vol] 21.9 mmol/L Normal 21.0-32.0 [facility] Comment on above: Performed By: #### L 503.6005, L100.0100, L500.4050, L501.4021, L503.7505 ####[facility] [address] [place], [address] Creatinine [Mass/Vol] 2.45 mg/dL High 0.70-1.20 [facility] Comment on above: Performed By: #### L 503.6005, L100.0100, L500.4050, L501.4021, L503.7505 ####[facility] [address] [place], [address] ECRCL 15.17 ml/min Low 50-250 [facility] Comment on above: Performed By: #### L 503.6005, L100.0100, L500.4050, L501.4021, L503.7505 ####[facility] [address] [place], [address] GAP 18 High 5-15 [facility] Comment on above: Performed By: #### L 503.6005, L100.0100, L500.4050, L501.4021, L503.7505 ####[facility] [address] [place], [address] GFR/1.73 sq M.predicted among non-blacks MDRD (S/P/Bld) [Vol rate/Area] 19 mL/min/{1.73_m2} Low >60 [facility] Comment on above: Result Comment: mL/m in/1.73m2 CKD-EPI Creatinine Equation (2020) Performed By: #### L 503.6005, L100.0100, L500.4050, L501.4021, L503.7505 ####[facility] [address] [place], [address] Globulin (S) [Mass/Vol] 3.6 g/dL Normal 2.2-4.2 [facility] Comment on above: Performed By: #### L 503.6005, L100.0100, L500.4050, L501.4021, L503.7505 ####[facility] [address] [place], [address] Glucose [Mass/Vol] 160 mg/dL High 70-99 [facility] Comment on above: Performed By: #### L 503.6005, L100.0100, L500.4050, L501.4021, L503.7505 ####[facility] [address] [place], [address] Potassium [Moles/Vol] 5.1 mmol/L Normal 3.3-5.1 [facility] Comment on above: Performed By: #### L 503.6005, L100.0100, L500.4050, L501.4021, L503.7505 ####[facility] [address] [place], [address] Sodium [Moles/Vol] 142 mmol/L Normal 133-145 [facility] Comment on above: Performed By: #### L 503.6005, L100.0100, L500.4050, L501.4021, [id number] ####[facility] [address] [place], [address] T PROT 7.3 g/dL Normal 5.9-8.4 [facility] Comment on above: Performed By: #### L 503.6005, L100.0100, L500.4050, L501.4021, [id number] ####[facility] [address] [place], [address] Urea nitrogen [Mass/Vol] 45 mg/dL High 4-19 [facility] Comment on above: Performed By: #### L 503.6005, L100.0100, L500.4050, L501.4021, L503.7505 ####[facility] [address] [place], [place], [id number] Consultation - [place] 11-17-2024 Consultation - Caustic Room Attendant Normal [facility] Echo Complete W/ Contraston 11-17-2024 Echo Complete W/ Contrast Normal [facility] Emergency Department Summary on 11-17-2024 Emergency Department Summary Normal [facility] Eosinophil percentageOrdered By: Reza Pedraza on 11-17-2024 Eosinophils/100 WBC (Bld) 0.0 % 0-5 [facility] Epithelial cells.squamous LM Ql (Urine sed)Ordered By: Reza Pedraza on 11-17-2024 Epithelial cells.squamous LM.HPF (Urine sed) [#/Area] 0 /[HPF] 5-10 [facility] Erythrocyte distribution wid th ratioOrdered By: Reza Pedraza on 11-17-2024 Erythrocyte distribution width (RBC) [Ratio] 13.7 % 11.6-14.6 [facility] Erythrocyte distribution wid th standard deviationOrdered By: Reza Pedraza on 11-17-2024 Erythrocyte distribution width (RBC) [Entitic vol] 53.3 fL High 35.1-43.9 [facility] Estimation of creatinine eam aranceOrdered By: Reza Pedraza on 11-17-2024 Estimated Creatinine Clearance Calc 15.17 ml/min Low 50-250 [facility] GFR/1.73 sq M.predicted lucinda g non-blacks MDRD (S/P/Bld) [Vol rate/Area]Ordered By: Reza Pedraza on 11-17-2024 Estimated GFR (MDRD) Non-Af Amer 19 Low >60 [facility] Comment on above: mL/min/1.73m2 CKD-EP I Creatinine Equation (2020) Glucose Ql (U)Ordered By: Angel Pedraza on 11-17-2024 Urine Glucose (UA) Normal mg/dl Normal [facility] H AND P Exam - Hospitaliston 11-17-2024 H&P Exam - Hospitalist Normal [facility] HIP, UNI W/ Pelvis 2-3 Views on 11-17-2024 HIP, UNI W/ Pelvis 2-3 Views Normal [facility] Hematocrit Auto (Bld) [Volum e fraction]Ordered By: Reza Pedraza on 11-17-2024 Hematocrit (Bld) [Volume fraction] 56.6 % High 37-47 [facility] Hemoglobin measurementOrdere d By: Reza Pedraza on 11-17-2024 Hemoglobin (Bld) [Mass/Vol] 17.7 g/dL High 12.0-15.0 [facility] Immature granulocytes/100 WB C Auto (Bld)Ordered By: Reza Pedraza on 11-17-2024 Immature granulocytes/100 WBC (Bld) 0.700 % 0.0-0.9 [facility] Comment on above: IG% - Immature Granu locytes (promyelocytes, myelocytes and metamyelocytes) > 1% indicates that a LEFT SHIFT is Present. Influenza virus A and B and SARS-CoV-2 (COVID-19) and Respiratory syncytial virus RNAOrdered By: Reza Pedraza on 11-17-2024 SARS-CoV-2 (COVID-19) RNA MATY+probe Ql (Unsp spec) [facility] Ketones Test strip Ql (U)Ord ered By: Reza Pedraza on 11-17-2024 Ketones Ql (U) 15 mg/dl High Negative [facility] L. pneumophila Ag Ql (U)Orde red By: Elsy Perdomo on 11-17-2024 Legionella Antigen [facility] L499.0042on 11-17-2024 Trop T High Sen 441 ng/L Invalid Interpretation Code <=14 [facility] Comment on above: Result Comment: Crit ical Result(s) Called to Donn GONZALEZ (ER): Roberto:??Results read back by same. Performed By: #### L 499.0042 ####[facility] [address] [place], [address] L499.0043on 11-17-2024 Trop T High Sen 407 ng/L Invalid Interpretation Code <=14 [facility] Comment on above: Result Comment: Crit ical Result(s) Called to Jasmin GONZALEZ (ER): Roberto:??Results read back by same. Performed By: #### L 499.0043 ####[facility] [address] [place], [place], [address] L501.4021on 11-17-2024 Trop T High Sen 482 ng/L Invalid Interpretation Code <=14 [facility] Comment on above: Result Comment: Crit ical Result(s) Called Johnna GONZALEZ (ER): Roberto:??Results read back by same. Performed By: #### L 503.6005, L100.0100, L500.4050, L501.4021, L503.7505 ####[facility] [address] [place], [address] L503.7505on 11-17-2024 Natriuretic peptide B (Bld) [Mass/Vol] 93744 pg/mL High <=1800 [facility] Comment on above: Result Comment: Hear t Failure Unlikely: < 300 pg/mLHeart Failure Likely< 50 Years: > 450 pg/mL50-75 Years: > 900 pg/mL>75 Years: > 1800 pg/mL Performed By: #### L 503.6005, L100.0100, L500.4050, L501.4021, L503.7505 ####[facility] [address] [place], [address] Laboratory - Chemistry and C hemistry - challengeOrdered By: Reza Pedraza on 11-17-2024 AST [Catalytic activity/Vol] 474 U/L High <32 [facility] Natriuretic peptide B (Bld) [Mass/Vol] 17727 pg/mL High <1800 [facility] Comment on above: Heart Failure Unlike ly: < 300 pg/mLHeart Failure Likely< 50 Years: > 450 pg/mL50-75 Years: > 900 pg/mL>75 Years: > 1800 pg/mL Lactic Acidon 11-17-2024 Lactate [Moles/Vol] 4.1 mmol/L Invalid Interpretation Code 0.0-2.0 [facility] Comment on above: Order Comment: Y [...] #### L 503.6005, L100.0100, L500.4050, L501.4021, L503.7505 ####[facility] [address] [facility] [place], [place], [id number] Lactic acid measurementOrder ed By: Reza Pedraza on 11-17-2024 Lactate [Moles/Vol] 2.3 mmol/L Invalid Interpretation Code 0.0-2.0 [facility] Comment on above: Critical Result(s) C alled to Jnoah GONZALEZ (ICU): by Skylar: Results read back by same. Result Comment: Crit ical Result(s) Called to Jonah GONZALEZ (ICU): Roberto:??Results read back by same. Performed By: #### L 503.6001 ####[facility] [address] [place], [place], [id number] Lactate [Moles/Vol] 4.1 mmol/L High 0.0-2.0 [facility] Comment on above: Critical Result(s) C alled to Johnna GONZALEZ (ER): by Skylar: Results read back by same. Critical Result(s) Called at: by: Results read back by same.Previous reported result: 4.1 mmol/LEdited by: AUTOINTana on 11/17/24:1344 AMENDED REPORT 11/17/24 1344 LACTIC ACID previously reported as: 4.1 *H mmol/L Critical Result(s) Called to Johnna GONZALEZ (ER): by Skylar: Results read back by same. Legionella Antigen Urineon 0 11-17-2024 LEGU Normal [facility] Comment on above: Performed By: #### M 8200.1000, M300.4500, M100.638, M300.4600 ####[facility] [address] [place], [address] Lipaseon 11-17-2024 Lipase [Catalytic activity/Vol] 40 U/L Normal [facility] Comment on above: Result Comment: Phil gomez note:LIPASE revised reference range effective 22.New Lipase methodology. Expected to produce lower valuesthan the previous assay method.NEW Reference Range: 13 - 75 U/L Performed By: #### L 100.0100, L501.2450, L500.4050, L501.2300, L501.5200 ####[facility] [address] [place], [place], [phone] Lipase measurementOrdered By : Lorna Salvador on 11-17-2024 Lipase [Catalytic activity/Vol] 40 U/L -[address] [place] [address] Comment on above: Please note:LIPASE r evised reference range effective 22. New Lipase methodology. Expected to produce lower values than the previous assay method. NEW Reference Range: 13 - 75 U/L Lymphocytes Auto (Unsp spec) [#/Vol]Ordered By: Reza Pedraza on 11-17-2024 Lymphocytes (Bld) [#/Vol] 1.32 10*3/uL 0.83-4.51 [facility] Lymphocytes/100 WBC Auto (Un sp spec)Ordered By: Reza Pedraza on 11-17-2024 Lymphocytes/100 WBC (Bld) 6.2 % Low 19-41 [facility] M100.678on 11-17-2024 M100.678 SARS-CoV-2 (COVID 19 ) Negative INFLUENZA A Negative INFLUENZA B Negative RSV PCR Negative Normal [facility] Comment on above: Performed By: #### M 100.678, L400.0001 ####[facility] [address] [place], [address] M8200.1000on 11-17-2024 M8200.1000 Normal Reference Ran ge = Negative MRSA DNA Nose Ql MATY+probe GeneXpert Instrument, PCR method MRSA PCR MRSA NEGATIVE Normal [facility] Comment on above: Performed By: #### M 8200.1000, M300.4500, M100.638, M300.4600 ####[facility] [address] [place], [address] MCV (mean corpuscular volume ) determinationOrdered By: Reza Pedraza on 11-17-2024 MCV (RBC) [Entitic vol] 104.0 fL High 81-99 [facility] MRSA DNA MATY+probe Ql (Nose) Ordered By: Elsy Perdomo on 11-17-2024 MRSA (PCR) [facility] Magnesiumon 11-17-2024 Magnesium [Mass/Vol] 2.2 mg/dL Normal 1.5-2.2 [facility] Comment on above: Performed By: #### L 100.0100, L501.2450, L500.4050, L501.2300, L501.5200 ####[facility] [address] [place], [address] Mean corpuscular hemoglobin (MCH) determinationOrdered By: Reza Pedraza on 11-17-2024 MCH (RBC) [Entitic mass] 32.5 pg High 27.0-32.0 [facility] Mean corpuscular hemoglobin concentration (MCHC) determinationOrdered By: Reza Pedraza on 11-17-2024 MCHC (RBC) [Mass/Vol] 31.3 g/dL Low 32-36 [facility] Mean platelet volume determi nationOrdered By: Reza Pedraza on 11-17-2024 Platelet mean volume (Bld) [Entitic vol] 11.0 fL 6.2-12.0 [facility] Microscopic analysis of urin e for red blood cells (RBC)Ordered By: Reza Pedraza on 11-17-2024 Microscopic analysis of urine for red blood cells (RBC) 0 SEEN /hpf 0-5 [facility] Urine RBC 0 SEEN /hpf 0-5 [facility] Monocyte percentageOrdered B y: Reza Pedraza on 11-17-2024 Monocytes/100 WBC (Bld) 7.5 % 0-10 [facility] Mucus LM Ql (Urine sed)Order ed By: Reza Pedraza on 11-17-2024 Mucus Ql (Urine sed) 0 SEEN /hpf [facility] Nasal methicillin resistant Staphylococcus aureus (MRSA) DNA detection by PCROrdered By: Elsy Perdomo on 11-17-2024 MRSA DNA MATY+probe Ql (Nose) [facility] Neutrophil percentageOrdered By: Reza Pedraza on 11-17-2024 Neutrophils/100 WBC (Bld) 85.3 % High 47-70 [facility] Nitrite Test strip Ql (U)Ord ered By: Reza Pedraza on 11-17-2024 Nitrite Ql (U) Negative Negative [facility] No Panel InformationOrdered By: Reza Pedraza on 11-17-2024 Troponin T High Sensitivity 482 ng/L High <14 [facility] Comment on above: Critical Result(s) C bryanna Oropeza RN (ER): by Skylar: Results read back by same. 482 ng/L High <14 [facility] 48710 pg/mL High <1800 [facility] Nucleated red blood cell per centageOrdered By: Reza Pedraza on 11-17-2024 Nucleated RBC/100 WBC (Bld) [Ratio] 0 % 0-5 [facility] Pathologist review Adrián (Unsp spec) [Interp]Ordered By: Reza Pedraza on 11-17-2024 Differential Pathologist's Review May rhiannon [facility] Phosphoruson 11-17-2024 Phosphate [Mass/Vol] 7.5 mg/dL High 2.7-4.5 [facility] Comment on above: Performed By: #### L 100.0100, L501.2450, L500.4050, L501.2300, L501.5200 ####[facility] [address] [place], [address] Platelet countOrdered By: Angel Pedraza on 11-17-2024 Platelets (Bld) [#/Vol] 272 10*3/uL 150-450 [facility] Potassium (Unsp spec) [Mass/ Vol]Ordered By: Reza Pedraza on 11-17-2024 Potassium [Moles/Vol] 5.1 mmol/L 3.3-5.1 [facility] Protein Test strip Ql (U)Ord ered By: Reza Pedraza on 11-17-2024 Protein Ql (U) 30 mg/dl High Negative [facility] RBC Auto (Bld) [#/Vol]Ordere d By: Reza Pedraza on 11-17-2024 RBC (Bld) [#/Vol] 5.44 10*6/uL High 4.2-5.4 [facility] RESPIRATORY PANEL MOLECULARo n 11-17-2024 RP PANEL Normal [facility] Comment on above: Performed By: #### M 8200.1000, M300.4500, M100.638, M300.4600 ####[facility] [address] [place], [place], [id number] Respiratory pathogens DNA an d RNA panel MATY+probe (Resp)Ordered By: Elsy Perdomo on 11-17-2024 Respiratory Panel (PCR) [facility] Respiratory pathogens detect ion panel by molecular detection methodOrdered By: Elsy Perdomo on 11-17-2024 Respiratory pathogens DNA and RNA panel MATY+probe (Resp) [facility] Serum creatinine measurement (mass/volume)Ordered By: Reza Pedraza on 11-17-2024 Creatinine [Mass/Vol] 2.45 mg/dL High 0.70-1.20 [facility] Serum globulin measurementOr dered By: Reza Pedraza on 11-17-2024 Globulin (S) [Mass/Vol] 3.6 g/dL 2.2-4.2 [facility] Serum glucose measurement (m ass/volume)Ordered By: Reza Pedraza on 11-17-2024 Glucose [Mass/Vol] 160 mg/dL High 70-99 [facility] Serum or plasma alanine colbert otransferase (ALT) measurementOrdered By: Reza Pedraza on 11-17-2024 ALT [Catalytic activity/Vol] 435 U/L High <35 [facility] Serum or plasma albumin azael urement (mass/volume)Ordered By: Reza Pedraza on 11-17-2024 Albumin [Mass/Vol] 3.7 g/dL 3.4-4.8 [facility] Serum or plasma albumin/glob ulin mass ratioOrdered By: Reza Pedraza on 11-17-2024 Albumin/Globulin [Mass ratio] 1.0 {ratio} 0.9-2.4 [facility] Serum or plasma alkaline selvin sphatase measurementOrdered By: Reza Pedraza on 11-17-2024 ALP [Catalytic activity/Vol] 168 U/L High 35-104 [facility] Serum or plasma calcium azael urement (mass/volume)Ordered By: Reza Pedraza on 11-17-2024 Calcium [Mass/Vol] 9.6 mg/dL 7.6-11.0 [facility] Serum or plasma urea nitroge n measurement (mass/volume)Ordered By: Reza Pedraza on 11-17-2024 Urea nitrogen [Mass/Vol] 45 mg/dL High 4-19 [facility] Sodium levelOrdered By: Ortiz Pedraza on 11-17-2024 Sodium [Moles/Vol] 142 mmol/L 133-145 [facility] Squamous epithelial cells de tection in urine sediment by light microscopyOrdered By: Reza Pedraza on 11-17-2024 Epithelial cells.squamous LM Ql (Urine sed) 0-5 SEEN /hpf 5-10 [facility] Strep pneumoniae Antig(UR,CS F)on 11-17-2024 STPAG Normal [facility] Comment on above: Performed By: #### M 8200.1000, M300.4500, M100.638, M300.4600 ####[facility] [address] [place], [address] Streptococcus pneumoniae ant igen assayOrdered By: Elsy Perdomo on 11-17-2024 Streptococcus pneumoniae Antigen (M [facility] Total proteinOrdered By: Arnav Pedraza on 11-17-2024 Protein [Mass/Vol] 7.3 g/dL 5.9-8.4 [facility] Troponin T.cardiac High sens itivity method [Mass/Vol]Ordered By: Reza Pedraza on 11-17-2024 Troponin T High Sensitivity 4 Hour 407 ng/L High <14 [facility] Comment on above: Critical Result(s) C alled to Jasmin RN (ER): by Skylar: Results read back by same. Troponin T High Sensitivity 2 Hour 441 ng/L High <14 [facility] Comment on above: Critical Result(s) C alled to Donn RN (ER): by Skylar: Results read back by same. Troponin T.cardiac [Mass/vol ume] in Serum or Plasma by High sensitivity methodOrdered By: Reza Pedraza on 11-17-2024 Troponin T.cardiac High sensitivity method [Mass/Vol] 407 ng/L High <14 [facility] Comment on above: Critical Result(s) C alled to Jasmin RN (ER): by Skylar: Results read back by same. Troponin T.cardiac High sensitivity method [Mass/Vol] 441 ng/L High <14 [facility] Comment on above: Critical Result(s) C alled to Donn GONZALEZ (ER): by Skylar: Results read back by same. Urinalysis, Completeon 11-17 EPI,SQUAMOUS 0-5 SEEN Normal 5-10 [facility] Comment on above: Order Comment: [id number] 0 LAC [id number] RACCLEAN CATCH Performed By: #### M 100.678, L400.0001 ####[facility] [address] [place], [address] WBC 0-5 SEEN Normal 0-5 [facility] Comment on above: Order Comment: [id number] 0 LAC [id number] RACCLEAN CATCH Performed By: #### M 100.678, L400.0001 ####[facility] [address] [place], [address] BACTERIA 0 SEEN Normal None Seen [facility] Comment on above: Order Comment: [id number] 0 LAC [id number] RACCLEAN CATCH Performed By: #### M 100.678, L400.0001 ####[facility] [address] [place], [address] Mucus Ql (Urine sed) 0 SEEN Normal [facility] Comment on above: Order Comment: [id number] 0 LAC [id number] RACCLEAN CATCH Performed By: #### M 100.678, L400.0001 ####[facility] [address] [place], [address] RBC 0 SEEN Normal 0-5 [facility] Comment on above: Order Comment: BC118 0 LAC [id number] RACCLEAN CATCH Performed By: #### M 100.678, L400.0001 ####[facility] [address] [place], [address] Urine Legionella pneumophila antigen detectionOrdered By: Elsy Perdomo on 11-17-2024 L. pneumophila Ag Ql (U) [facility] Urine blood detectionOrdered By: Reza Pedraza on 11-17-2024 Urine Occult Blood 10 /ul High Negative [facility] Urine clarityOrdered By: Arnav Pedraza on 11-17-2024 Clarity (U) Sl. Cloudy Clear [facility] Urine color determinationOrd ered By: Reza Pedraza on 11-17-2024 Color (U) Yellow Yellow [facility] Urine glucose detectionOrder ed By: Reza Pedraza on 11-17-2024 Glucose Ql (U) Normal mg/dl Normal [facility] Urine leukocyte esterase det ection by dipstickOrdered By: Reza Pedraza on 11-17-2024 Leukocyte esterase Test strip Ql (U) 25 /ul High Negative [facility] Urine pHOrdered By: Reza miller on 11-17-2024 pH (U) 6.0 [pH] 5.0 - 8.0 [facility] Urine sediment bacteria coun t by microscopy (number/high power field)Ordered By: Reza Pedraza on 11-17-2024 Bacteria LM.HPF (Urine sed) [#/Area] 0 /[HPF] None Seen [facility] Urine specific gravity measu rementOrdered By: Reza Pedraza on 11-17-2024 Specific gravity (U) [Rel density] 1.020 1.002-1.03 0 [facility] Urine urobilinogen measureme ntOrdered By: Reza Pedraza on 11-17-2024 Urobilinogen Ql (U) 1 mg/dl High Normal [facility] Urobilinogen Ql (U)Ordered B y: Reza Pedraza on 11-17-2024 Urobilinogen (U) [Mass/Vol] 1 mg/dL High Normal [facility] White blood cell (WBC) count Ordered By: Reza Pedraza on 11-17-2024 WBC (Bld) [#/Vol] 21.2 10*3/uL High 4.4-11.0 [facility] White blood cell countOrdere d By: Reza Pedraza on 11-17-2024 Urine WBC 0-5 SEEN /hpf 0-5 [facility] White blood cell count 0-5 SEEN /hpf 0-5 [facility] ALLIED HEALTHon 10-03-2024 ALLIED HEALTH HNO ID: [id number] Author: JOMAR ARREDONDO CT Service: Radiology Author [...] PATIENT PRESENTS WITH AN IMPLANTABLE OR ATTACHED [facility]: No RADIOLOGY DEPARTMENT: CT; Exam(s) Completed: Spine and LSP PERIPHERAL IV DATA: Not applicable SIGNED BY: Jomar Arredondo, CT October 03, 2024 6:23 PM Normal [facility] CT LUMBAR SPINE WO IVCONon 0 10-03-2024 CT LUMBAR SPINE WO IVCON * * *Final Report* * * DATE OF EXAM: Oct 03 2024 6:23PM [facility] 0508 - CT LUMBAR SPINE WO IVCON [...] are 5 lumbar-type vertebrae. Anatomic variant: None. Assistant Sales Center Manager (topogram) images: Alignment: There is 9 mm [...] as clinical symptoms warrant. Anatomic Lumbar Variant: Coat Baster: PSCB Transcribe Date/Time: Oct 03 2024 8:49P Dictated by : VALENTINA STERN MD This examination was interpreted and the report reviewed and electronically signed by: VALENTINA STERN MD on Oct 03 2024 8:54PM EST [id number] Normal [facility] ED NOTEon 10-03-2024 ED NOTE HNO ID: [id number] Author: MICHELLE SEGURA RN Service: Emergency Medicine Author Type: Registered Nurse Type: ED Notes Filed: 10/03/2024 20:37 Note Text: Patient ambulating in room. Advised still waiting for CT result Normal [facility] ED NOTE HNO ID: [id number] Author: MICHELLE SEGURA RN Service: Emergency Medicine Author Type: Registered Nurse Type: ED Notes Filed: 10/03/2024 19:44 Note Text: Patient sitting up in wheelchair (patient preference), states pain is "not too bad if I don't move." For documentation, asked patient for pain rating at rest, patient states 8/10. Teaching provided regarding pain scale, as "not too bad" is generally lower than 8. Patient states "I guess it's a 5 then, but it's really bad if I move." Comfort measures offered. Patient waiting for CT results. Normal [facility] ED NOTE HNO ID: [id number] Author: JUNI SAUCEDA RN Service: Emergency Medicine Author Type: Registered Nurse Type: ED Notes Filed: 10/03/2024 18:41 Note Text: Pt denies any pain relief from meds, sts getting on and off CT table made pain worse. Normal [facility] ED NOTE HNO ID: [id number] Author: JUNI SAUCEDA, LISA Service: Emergency Medicine Author Type: Registered Nurse Type: ED Notes Filed: 10/03/2024 15:56 Note Text: Pt positioned for comfort and informed of wait due to ED being full. Normal [facility] ED PROV NOTEon 10-03-2024 ED PROV NOTE HNO ID: [id number] Author: DANIA GIVENS MD Service: Emergency Medicine [...] normal. B (more content not included)... Normal [facility] CARDIO IQ(R) NT PROBNPon Natriuretic peptide B (Bld) [Mass/Vol] 1066 pg/mL High <450 [facility] Comment on above: Order Comment: 0 Performed By: #### 9 1739 #### [facility], [address] [place] [address] [facility]: Terry Beckwith 09-19-[address] [facility] Telephone (ALISON) -- LESLI ROSALES ([id number]) 1940 F Date Time Provider Department 09/19/24 REJI ALEXANDER During your visit today, we recorded the following information about you: Tracy Mota LPN 09/19/2024 8:52 AM Signed [facility] call on behave of Dr. Ariadne Guthrie. Dr. Guthrie is questioning why patient is not on a controller inhaler. Please call office back at [phone]. PATSY Mullen Kathleen, LPN 09/19/2024 9:38 AM Signed Spoke with Cesia at [facility]. Per our office records, patient was advised to continue Symbicort BID and Spiriva once per day. Will fax CT report and HANDP to Dr. Guthrie ([phone]) Akshat Bermudez LPN Allergies As of Date: [...] Status:Closed by AKSHAT BERMUDEZ on 09/19/[address] [facility] CBC (H/H, RBC, INDICES, WBC, PLT)on 09-17-2024 Erythrocyte distribution width (RBC) [Ratio] 11.9 % Normal 11.0-15.0 [facility] Comment on above: Performed By: #### 8 525, 213, 1759, 927, 6517, 1005, 18782, [address] #### [facility] [address], [address] [place] [address] [facility]: Christiano Rapp MD Hematocrit (Bld) [Volume fraction] 48.1 % High 35.0-45.0 [facility] Comment on above: Performed By: #### 8 525, 213, 1759, 927, 6517, 1005, 81547, 362[address] #### [facility] [address], [address] [place] [address] [facility]: Christiano Rapp MD Hemoglobin (Bld) [Mass/Vol] 15.9 g/dL High 11.7-15.5 [facility] Comment on above: Performed By: #### 8 525, 213, 1759, 927, 6517, 1005, 79065, 444[address] #### [facility] [place] [address] [facility]: Christiano Rapp MD MCH (RBC) [Entitic mass] 32.3 pg Normal 27.0-33.0 [facility] Comment on above: Performed By: #### 8 525, 213, 1759, 927, 6517, 1005, 97317, [address] #### [facility] [place] [address] [facility]: Christiano Rapp MD MCHC (RBC) [Mass/Vol] 33.1 g/dL Normal 32.0-36.[address] [facility] Comment on above: Result Comment: For adults, a slight decrease in the calculated MCHC value (in the range of 30 to 32 g/dL) is most likely not clinically significant; however, it should be interpreted with caution in correlation with other red cell parameters and the patient's clinical condition. Performed By: #### 8 525, 213, 1759, 927, 6517, 1005, 18809, 72937 #### [facility] [place] [address] [facility]: Christiano Rapp MD MCV (RBC) [Entitic vol] 97.8 fL Normal 80.0-100.0 [facility] Comment on above: Performed By: #### 8 525, 213, 1759, 927, 6517, 1005, 72683, 02306 #### [facility] [place] [address] [facility]: Christiano Rapp MD Platelet mean volume (Bld) [Entitic vol] 11.4 fL Normal 7.5-12.5 [facility] Comment on above: Performed By: #### 8 525, 213, 1759, 927, 6517, 1005, 11030, 48532 #### [facility] [place] [address] [facility]: Christiano Rapp MD Platelets (Bld) [#/Vol] 181 10*3/uL Normal 140-400 [facility] Comment on above: Performed By: #### 8 525, 213, 1759, 927, 6517, 1005, 53145, 65[address] #### [facility] of [address], [address] [place] [address] [facility]: Christiano Rapp MD RBC (Bld) [#/Vol] 4.92 10*6/uL Normal 3.80-5.10 [facility] Comment on above: Performed By: #### 8 525, 213, 1759, 927, 6517, 1005, 47034, 80743 #### [facility] of [address], [address] [place] [address] [facility]: Christiano Rapp MD WBC (Bld) [#/Vol] 7.7 10*3/uL Normal 3.8-10.8 [facility] Comment on above: Performed By: #### 8 525, 213, 1759, 927, 6517, 1005, 04382, 76732 #### [facility] Diagnostics of [address], [address] [place] [address] [facility] Christiano Rapp MD [facility] METABOLIC PANE [facility] 09-17-2024 Albumin [Mass/Vol] 3.8 g/dL Normal 3.6-5.1 [facility] Comment on above: Performed By: #### 8 525, 213, 1759, 927, 6517, 1005, 62703, 17797 #### [facility] of [address], [address] [place] [address] [facility] Christiano Rapp MD Albumin/Globulin [Mass ratio] 1.5 {ratio} Normal 1.0-2.5 [facility] Comment on above: Performed By: #### 8 525, 213, 1759, 927, 6517, 1005, 94125, 08590 #### [facility] of [address], [address] [place] [address] [facility] Christiano Rapp MD ALP [Catalytic activity/Vol] 79 U/L Normal 37-153 [facility] Comment on above: Performed By: #### 8 525, 213, 1759, 927, 6517, 1005, 83679, 68626 #### [facility] [place] [address] [facility] Christiano Rapp MD ALT [Catalytic activity/Vol] 14 U/L Normal 6-29 [facility] Comment on above: Performed By: #### 8 525, 213, 1759, 927, 6517, 1005, 66645, 75049 #### [facility] of [place] [address] [facility] Christiano Rapp MD AST [Catalytic activity/Vol] 18 U/L Normal 10-35 [facility] Comment on above: Performed By: #### 8 525, 213, 1759, 927, 6517, 1005, 05467, 35445 #### [facility] of [place] [address] [facility] Christiano Rapp MD Bilirubin [Mass/Vol] 1.1 mg/dL Normal 0.2-1.2 Ques t [facility] Comment on above: Performed By: #### 8 525, 213, 1759, 927, 6517, 1005, 31604, 22373 #### [facility] [place] [address] [facility] Christiano Rapp MD Calcium [Mass/Vol] 9.4 mg/dL Normal 8.6-10.4 [facility] Comment on above: Performed By: #### 8 525, 213, 1759, 927, 6517, 1005, 73130, 80501 #### [facility] of [place] [address] [facility] Christiano Rapp MD Chloride [Moles/Vol] 104 mmol/L Normal 98-110 [facility] Comment on above: Performed By: #### 8 525, 213, 1759, 927, 6517, 1005, 56172, 20361 #### [facility] of [facility] [address], [address] [place] [address] [facility] Christiano Rapp MD CO2 [Moles/Vol] 30 mmol/L Normal 20-32 [facility] Comment on above: Performed By: #### 8 525, 213, 1759, 927, 6517, 1005, 79111, 87705 #### [facility] [place] [address] [facility] Christiano Rapp MD Creatinine [Mass/Vol] 0.47 mg/dL Low 0.60-0.[address] [facility] Comment on above: Performed By: #### 8 525, 213, 1759, 927, 6517, 1005, 97105, 43764 #### [facility] [place] [address] [facility] Christiano Rapp MD GFR/1.73 sq M.predicted among non-blacks MDRD (S/P/Bld) [Vol rate/Area] 94 mL/min/{1.73_m2} Normal > OR = 60 [facility] Comment on above: Performed By: #### 8 525, 213, 1759, 927, 6517, 1005, 82811, 61748 #### [facility] [place] [address] [facility] Christiano Rapp MD Globulin (S) [Mass/Vol] 2.6 g/dL Normal 1.9-3.7 [facility] Comment on above: Performed By: #### 8 525, 213, 1759, 927, 6517, 1005, 83867, 77681 #### [facility] [place] [address] [facility] Christiano Rapp MD Glucose [Mass/Vol] 84 mg/dL Normal 65-99 [facility] Comment on above: Result Comment: Fasting reference interval Performed By: #### 8 525, 213, 1759, 927, 6517, 1005, 25702, 77576 #### [facility] [address] [place] [address] [facility] Christiano Rapp MD Potassium [Moles/Vol] 3.7 mmol/L Normal 3.5-5.[address] [facility] Comment on above: Performed By: #### 8 525, 213, 1759, 927, 6517, 1005, 68627, 51803 #### [facility] [address], [address] [place] [address] [facility] Christiano Rapp MD Protein [Mass/Vol] 6.4 g/dL Normal 6.1-8.1 [facility] Comment on above: Performed By: #### 8 525, 213, 1759, 927, 6517, 1005, 31429, 09039 #### [facility] [address], [address] [place] [address] [facility] Christiano Rapp MD Sodium [Moles/Vol] 145 mmol/L Normal 135-146 [facility] Comment on above: Performed By: #### 8 525, 213, 1759, 927, 6517, 1005, 23163, 57280 #### [facility] [address], [address] [place] [address] [facility] Christiano Rapp MD Urea nitrogen [Mass/Vol] 18 mg/dL Normal 7-25 [facility] Comment on above: Performed By: #### 8 525, 213, 1759, 927, 6517, 1005, 80676, 57040 #### [facility] [address], [address] [place] [address] [facility] Christiano Rapp MD Urea nitrogen/Creatinine [Mass ratio] 38 mg/mg High 6-22 [facility] Comment on above: Performed By: #### 8 525, 213, 1759, 927, 6517, 1005, 88773, 35190 #### [facility] of [address], [address] [place] [address] [facility] Christiano Rapp MD LIPID PANEL, [facility] 08-22 Cholesterol [Mass/Vol] 152 mg/dL Normal <200 Qu est Diagnostics Comment on above: Order Comment: 0 0 Performed By: #### 1 0231, 899, 1759, 7600, 97906 #### [facility] [place] [address] [facility] Christiano Rapp MD Cholesterol in HDL [Mass/Vol] 56 mg/dL Normal > OR = 50 [facility] Comment on above: Order Comment: 0 0 Performed By: #### 1 0231, 899, 1759, 7600, 74322 #### [facility] [address], [address] [place] [address] [facility] Christiano Rapp MD Cholesterol in LDL [Mass/Vol] 79 mg/dL Normal [facility] Comment on above: Order Comment: 0 0 Result Comment: Refe rence range: <100 Desirable range <100 mg/dL for primary prevention; <70 mg/dL for patients with CHD or diabetic patients with > or = 2 CHD risk factors. LDL-C is now calculated using the Andrea-Rosie calculation, which is a validated novel method providing better accuracy than the Friedewald equation in the estimation of LDL-C. Andrea HARDWICK et al. ROWDY. 2013;310(19): 6829-0569 (http://education.[employer]OopsLab/faq/JUE064) Performed By: #### 1 0231, 899, 1759, 7600, 65082 #### [facility] [address], [address] [place] [address] [facility] Christiano Rapp MD Cholesterol.total/Chol esterol in HDL [Mass ratio] 2.7 {ratio} Normal <5.0 [facility] Comment on above: Order Comment: 0 0 Performed By: #### 1 0231, 899, 1759, 7600, 17555 #### [facility] [place] [address] [facility] Christiano Rapp MD NON HDL CHOLESTEROL 96 mg/dL (calc) Normal <130 [facility] Comment on above: Order Comment: 0 0 Result Comment: For patients with diabetes plus 1 major ASCVD risk factor, treating to a non-HDL-C goal of <100 mg/dL (LDL-C of <70 mg/dL) is considered a therapeutic option. Performed By: #### 1 0231, 899, 1759, 7600, 48756 #### [facility] [address], [address] [place] [address] [facility] Christiano Rapp MD Triglyceride [Mass/Vol] 83 mg/dL Normal <150 [facility] Comment on above: Order Comment: 0 0 Performed By: #### 1 0231, 899, 1759, 7600, 48759 #### [facility] [address], [address] [place] [address] [facility] Christiano Rapp MD TSHon 09-17-2024 TSH Qn 0.92 m[IU]/L Normal 0.40-4.50 [facility] Comment on above: Performed By: #### 8 525, 213, 1759, 927, 6517, 1005, 87732, 36281 #### [facility] [address], [address] [place] [address] [facility] Christiano Rapp MD VITAMIN D,25-OH,TOTAL,IAon 0 09-17-2024 [...] D, (D2,D3), LC/MS/MS is recommended: order code 69020 (patients >2yrs). See Note 1 Note 1 For additional information, please refer to http://education.[employer]faq/YQI182 (This link is being provided for informational/ educational purposes only.) Performed By: #### 8 525, 213, 1759, 927, 6517, 1005, 69095, 82905 #### [facility] [address], [address] [place] [address] [facility] Christiano Rapp MD CNCOon 09-16-2024 [address]CO [address] Normal [facility] CNOVon 09-12-2024 CNOV Office Visit (PULMWS ) -- LESLI ROSALES ([id number]) 1940 F Date Time Provider Department 09/12/24 11:45 AM KEELY GIVENS PULMFLACO During your visit today, we recorded the following information about you: Pulse Respiration Blood pressure Weight 104/minute 18/minute 122/84 72.6 kg Keely Givens MD 09/12/2024 1:47 PM Signed . [facility] Note Patient name: Lesli Rosales PCP: Giselle Elizondo MD CC: Follow-up chest CT HPI: Lesli Rosales 84 year old female former less than 30-fewe-dkwk smoker, quitting in 1975 with PMH significant for obesity, PAF, COPD, HTN, psoriatic arthritis, pulmonary nodules, chronic hypoxemic respiratory failure who was initially seen for possible pulmonary fibrosis. She was transferring her pulmonary care from the [facility]. I had no records, unable to [...] systolic murm (more content not included)... Normal [facility] CT CHEST WO IVCONon 09-12-19 CT CHEST WO IVCON * * *Final Report* * * DATE OF EXAM: Sep 12 2024 11:48AM [facility] 0541 - CT CHEST WO IVCON [...] Routing Code: RI_1 Recommendation: CT Chest WO [facility] Time Frame: 6-12 months Comments: If stable on follow-up imaging, a repeat chest CT exam in 12 months (18-24 months from the initial exam) is recommended --END OF FINDING-- Coat Baster: MALACHI Transcribe Date/Time: Sep 15 2024 7:49P Dictated by : CHESTER CALVERT MD This examination was interpreted and the report reviewed and electronically signed by: CHESTER CALVERT MD on Sep 15 2024 7:53PM EST [id number] ACTIONABLE Invalid Interpretation Code [facility] Quantiferon TB-Gold+on 08-31 QFT MITOGEN JOSE > 10.00 Normal . [facility] Comment on above: Performed By: #### L 3400.8000 ####[facility] [address] [place], [place], [id number] QFT NIL VALUE 0.04 IU/mL Normal . [facility] Comment on above: Performed By: #### L 3400.8000 ####[facility] [address] [place], [address] QFT TB GOLD+ Comment Normal . [facility] Comment on above: Result Comment: Shayne [...] the test. Performed By: #### L 3400.8000 ####[facility] [address] [place], [address] QFT TB POS CRIT Negative Normal Negative [facility] Comment on above: Result Comment: No [...] the productionof interferon gamma. Chemiluminescence immunoassaymethodologyPerformed at: [facility] [id number] Director: Brady Posey PhD, Phone: [phone] Performed By: #### L 3400.8000 ####[facility] [address] [place], [address] QFT TB1+ AG JOSE 0.05 IU/mL Normal . [facility] Comment on above: Performed By: #### L 3400.8000 ####[facility] [address] [place], [address] QFT TB2+ AG JOSE 0.04 IU/mL Normal . [facility] Comment on above: Performed By: #### L 3400.8000 ####[facility] [address] [place], [address] M. tuberculosis tuberculin s eula IFN-g Ql (Bld)Ordered By: Reji Bnenett on 08-29-2024 TB Test (QFT) Antigen 1 0.05 IU/mL . [facility] Quantiferon-TB Gold Plus maria isabel tOrdered By: Reji Bennett on 08-29-2024 TB Test (QFT) Comment . [facility] Comment on above: QuantiFERON-TB Gold Plus [...] Test (QFT) Antigen 2 0.04 IU/mL . [facility] TB Test (QFT) Mitogen > 10.00 IU/mL . [facility] TB Test (QFT) Nil 0.04 IU/mL . [facility] TB Test (QFT) Positive Criteria Negative Negative [facility] Comment on above: No response to [...] the productionof interferon gamma. Chemiluminescence immunoassaymethodologyPerformed at: [facility] [id number] Director: Brady Posey PhD, Phone: [phone] Tang 08-16-[address] [facility] Telephone (FPWADS) -- LESLI ROSALES ([id number]) 1940 F Date Time Provider Department 08/16/24 GISELLE ELIZONDO During your visit today, we recorded the following information about you: Marjorie Redman LPN 08/16/2024 3:44 PM Signed Received 08/16/2024 from [facility]3. Placed in provider's inbox for review. Route to ID for faxing. Allergies As of Date: 08/16/2024 (No Known Allergies) Date Reviewed: 07/10/2024 Reviewed by: Marjorie Redman LPN - Fully Assessed Reason for Visit: Received Outside Medical Records [3571] Cmt: [facility] Orders for oxygen. 07/30/2024 Prescriptions as [...] Encounter Status:Closed by MARJORIE REDMAN on 08/16/24 [facility] Tang 07-31-2024 CNPN Telephone (PETER) -- LESLI ROSALES ([id number]) 1940 F Date Time Provider Department 07/31/24 GISELLE ELIZONDO During your visit today, we recorded the following information about you: Dania Jones 07/31/2024 10:48 AM Signed curr [employer] Caller Name: Giovanna Call Back Number [phone] Reason for Call: 5 year renewal on oxygen machine Additional Information: Faxed on 07-30-24. Checking on receipt of faxed oder. Marjorie Redman LPN 07/31/2024 11:23 AM Signed Orders from [facility] Received and placed in providers [...] Encounter Status:Closed by MADDIE COSTA on 08/08/24 [facility] Tang 07-22-2024 CNPN Telephone (FPWADS) -- LESLI ROSALES ([id number]) 1940 F Date Time Provider Department 07/22/24 GISELLE ELIZONDO During your visit today, we recorded the following information about you: Aurea Loya 07/22/2024 10:22 AM Shannen Martin is calling Giselle Elizondo MD today with concern regarding Results and Patient Question she would like to ask a nurse. She is asking if the US showed anything on the Pancreas. Please call to review. Patient has been identified by name and birthdate. Duration of symptoms: N/A Person calling: self Call patient at: at home [phone] (home) [phone] (cell) Was an appointment scheduled: No Closing statement: Results or non-symptom based questions: Thank you for calling [facility], your call will be returned within the next business day. Ana Chacon APRN.MARJ 07/22/2024 2:05 PM Signed No new concerns [...] Reason for Visit: Results [95] Patient Question [5997] Cmt: Results and her Pancreas Prescriptions as [...] Status:Closed by FERNANDA COLEMAN on 07/22/[address] [facility] 36on 07-15-2024 36 Pt hasn't been seen in a year. Looks like she has been going to [facility] Pulmonary. Called Pt to confirm and she was unavailable. [facility] for call back. Normal [facility] No Panel Informationon 07-11 IMPRESSION: 1. Cystic lesion in the body of the pancreas similar to the prior MRI 2. No biliary dilatation Coat Baster: MALACHI Transcribe Date/Time: Jul 11 2024 10:37A Dictated by : ZULMA TORRES MD This examination was interpreted and the report reviewed and electronically signed by: ZULMA TORRES MD on Jul 11 2024 10:40AM EST DIVISION OF RADIOLOGY Radiology Study observation (narrative) [facility] No Panel InformationOrdered By: Ccf Provider on 07-11-2024 [facility] US ABD RIGHT UPPER QUADRANTo n 07-11-2024 [...] the prior MRI 2. No biliary dilatation Coat Baster: PSCB Transcribe Date/Time: Jul 11 2024 10:37A Dictated by : ZULMA TORRES MD This examination was interpreted and the report reviewed and electronically signed by: ZULMA TORRES MD on Jul 11 2024 10:40AM EST [id number] Normal [facility] ABD SPLEEN - NBon 024 * * *Final Report* * * DATE OF EXAM: Jul 11 2024 10:19AM [facility] 1232 - US [facility] SPLEEN -NB / PROCEDURE REASON: Epigastric pain [...] kidney: No hydronephrosis. DIVISION OF RADIOLOGY Provider, [facility] - 07/11/2024 * * *Final Report* * * DATE OF EXAM: Jul 11 2024 10:19AM [place] [id number] - [facility] SPLEEN -NB / PROCEDURE REASON: Epigastric pain [...] the prior MRI 2. No biliary dilatation Coat Baster: [facility] Transcribe Date/Time: Jul 11 2024 10:37A Dictated by : ZULMA TORRES MD This examination was interpreted and the report reviewed and electronically signed by: ZULMA TORRES MD on Jul 11 2024 10:40AM EST [facility] US ABD SPLEEN -NBon 07-11-20 24 US ABD SPLEEN -NB * * *Final [...] the prior MRI 2. No biliary dilatation Coat Baster: [facility] Transcribe Date/Time: Jul 11 2024 10:37A Dictated by : ZULMA TORRES MD This examination was interpreted and the report reviewed and electronically signed by: ZULMA TORRES MD on Jul 11 2024 10:40AM EST [id number] Normal [facility] US Abdomen RUQon 07-11-2024 * * [...] kidney: No hydronephrosis. DIVISION OF RADIOLOGY Provider, [facility] - 07/11/2024 * * *Final Report* * [...] the prior MRI 2. No biliary dilatation [facility] Transcribe Date/Time: Jul 11 2024 10:37A Dictated by : ZULMA TORRES MD This examination was interpreted and the report reviewed and electronically signed by: ZULMA TORRES MD on Jul 11 2024 10:40AM EST [facility] CNOVon 07-10-2024 CNOV Office Visit (FPWADS ) -- LESLI ROSALES ([id number]) 1940 F Date Time Provider Department 07/10/24 10:00 AM ANA MEZA LIBRA During your visit today, we recorded the following information about you: Pulse Blood pressure Weight Height 69/minute 145/88 73 kg 1.54 m Ana Meza APRN.RN HEMODIALYSIS 07/10/2024 11:43 AM Signed This note was created using [employer]. Subjective Lesli Rosales is a 84 year old female. Patient reports new onset epigastric pain starting about 3 weeks ago, radiates straight through to back. Only occurs with eating. Pain lasts for about a half hour. Takes famotidine every day for GERD, 20 mg in the morning. Pain does not come up into throat. History of hiatal hernia. Feels "hard" and swollen in epigastric area. Doesn't feel [...] 1985 CHOLECYSTECTOMY HX COLONOSCOPY SCREENING EGD W/O [facility] SPEC VARICIES INJ REPAIR OF RECTOCELE REPAIR [...] (will be provided with radiology test) MRI PANC/MARCK Inject, intravenously, once for 1 dose. No [...] 145/88 Pulse 69 Ht 154 cm (5' 0.63") Wt 73 kg (160 lb 15 oz) [...] to li (more content not included)... [facility] -- LESLI ROSALES ([id number]) 1940 F Date Time Provider Department 07/10/24 ANA MEZA During your visit today, we recorded the following information about you: Chloe Hills 07/10/2024 4:11 PM Signed Lesli was referred [...] [facility] [place]. Please advisChloe ulrich Megan, APRN.MARJ 07/10/2024 4:41 PM Signed MRI re-ordered, medication sent Ana Meza APRN.Marjorie Manzano LPN 07/11/2024 10:09 AM Signed Voicemail not set up Ester Morse 07/11/2024 2:14 PM Signed MRI order switched to new order. Allergies As of Date: 07/10/2024 (No Known Allergies) Date Reviewed: 07/10/2024 Reviewed by: Marjorie Redman LPN - Fully Assessed Reason for Visit: Patient Question [3637] Primary Visit Diagnosis:Pancreatic cyst [K86.2] Order(s):MRI PANC/MARCK WO/W IVCON [[id number]] Order #: [id number] FUTURE MRI 3D POST PROCESSING [[id number]] Order #: [id number] FUTURE diazePAM (VALIUM) 10 mg tabletTake one [...] be provided with radiology test) (Discontinued) MRI PANC/MARCK Inject, intravenously, once for 1 dose. No [...] contrast administration guidelines link. Encounter Status:Closed by HARICHLOE HALEY on 07/10/[address] [facility] ED Nursing Noteon 06-07-2024 ED Nursing Note Patient left prior t o receiving discharge papers Cesia Sheth RN 06/07/242002 Normal [facility] ED Nursing Note Pt medicated per ord ers. Advised pt that she will be discharged after registration/med hold time. Pt trying to call a ride. Yamila Sanchez RN 06/07/24 190 Normal [facility] ED Nursing Note Pt to ED5 via [facility] with report of chronic back pain. Pt states she has had back pain since March. She has seen PCP and also sees pain management. She is on multiple pain meds including [place] and Soma as well as gabapentin. She last took [place] at 1630 but states it did nothing. She is rating her pain 10/10. Pt able to move all extremities. She reports hx of sciatica and states this feels similar. Pain is around left flank to spine. It went down her left leg yesterday but not today. Pt is A&Ox3, respirations even and unlabored, skin warm and dry, no distress noted. Normal [facility] ED Provider Noteon ED Provider Note EMERGENCY [...] follows with pain management. She is on [place], Soma, gabapentin. She was previously on Toradol. [...] Problem Relation Name Age of Onset Other (23829) Mother SOCIAL HISTORY Social History Socioeconomic History [...] Patient Position (more content not included)... Normal [facility] CNOVon 05-29-2024 CNOV Office Visit (FPWADS ) -- LESLI ROSALES ([id number]) 1940 F Date Time Provider Department 05/29/24 11:00 AM GISELLE ELIZONDO During your visit today, we [...] 157/85 Pulse 62 Ht 154 cm (5' 0.63") Wt 75 kg (165 lb 5.5 oz) [...] Attestation: By signing my name below, Evan Jeetr, attest that this documentation has been prepared [...] 2024 1:57 (more content not included)... Normal [facility] XR RIBS 2V AP/OBL LTon 05-29 [...] prominence, possibly in part due to technique. Coat Baster: MALACHI Transcribe Date/Time: Jun 03 2024 3:19P Dictated by : SVETA SOOD DO This examination was interpreted and the report reviewed and electronically signed by: SVETA SOOD DO on Jun 03 2024 3:28PM EST [id number] Normal [facility] XR THORACIC 3V AP/LAT/SWIMME RSon 05-29-2024 XR [...] radiographs. IMPRESSION: No definite thoracic spine fracture. Coat Baster: [employer] Transcribe Date/Time: Jun 03 2024 3:29P Dictated by : SVETA SOOD DO This examination was interpreted and the report reviewed and electronically signed by: SVETA SOOD DO on Jun 03 2024 3:33PM EST [id number] Normal [facility] CT CHEST WO IVCONon 01-19-20 CT CHEST WO IVCON * * *Final Report* * * DATE OF EXAM: Jan 19 2024 10:56AM [facility] 0541 - CT CHEST WO IVCON / [...] likely sequela of underlying interstitial lung disease. Coat Baster: PSCB Transcribe Date/Time: Jan 24 2024 3:02P Dictated by : UMA HARDY MD This examination was interpreted and the report reviewed and electronically signed by: UMA HARDY MD on Jan 24 2024 3:19PM EST [id number] Normal [facility] Comprehensive metabolic 2000 panelon 01-19-2024 Albumin [Mass/Vol] 3.7 g/dL Low 3.9-4.9 [facility] Comment on above: Order Comment: Nafisa hutton Type: BLOOD SPECIMEN Ordering Facility: [facility] Address: [address] [place] [address] Performed By: #### 2 4323-8 #### [facility] CLIA [id number] [address] [place] [id number] [place] ALP [Catalytic activity/Vol] 92 U/L Normal 34-123 [facility] Comment on above: Order Comment: Speci men Type: BLOOD SPECIMEN Ordering Facility: [facility] Address: [address] [place] [address] Performed By: #### 2 4323-8 #### [facility] CLIA [id number] [address] [place] [address] [place] ALT With P-5'-P [Catalytic activity/Vol] 12 U/L Normal 7-38 [facility] Comment on above: Order Comment: Speci men Type: BLOOD SPECIMEN Ordering Facility: [facility] Address: [address] [place] [address] Performed By: #### 2 4323-8 #### [facility] CLIA [id number] [address] [place] [address] [place] Anion gap [Moles/Vol] 7 mmol/L Low 9-18 [facility] Comment on above: Order Comment: Speci men Type: BLOOD SPECIMEN Ordering Facility: [facility] Address: [address] [place] [address] Performed By: #### 2 4323-8 #### [facility] CLIA [id number] [address] [place] [address] [place] AST With P-5'-P [Catalytic activity/Vol] 20 U/L Normal 13-35 [facility] Comment on above: Order Comment: Speci men Type: BLOOD SPECIMEN Ordering Facility: [facility] Address: [address] [place] [address] Performed By: #### 2 4323-8 #### [facility] CLIA [id number] [address] [place] [address] [place] Bilirubin [Mass/Vol] 1.0 mg/dL Normal 0.2-1.3 [facility] Comment on above: Order Comment: Speci men Type: BLOOD SPECIMEN Ordering Facility: [facility] Address: [address] [place] [address] Performed By: #### 2 4323-8 #### [facility] CLIA [id number] [address] [place] [address] [place] Calcium [Mass/Vol] 9.5 mg/dL Normal 8.5-10.2 [facility] Comment on above: Order Comment: Speci men Type: BLOOD SPECIMEN Ordering Facility: [facility] Address: [facility] [place] [address] Performed By: #### 2 4323-8 #### [facility] CLIA [id number] [address] [place] [address] [place] Chloride [Moles/Vol] 100 mmol/L Normal 97-105 [facility] Comment on above: Order Comment: Speci men Type: BLOOD SPECIMEN Ordering Facility: [facility] Address: [address] [place] [address] Performed By: #### 2 4323-8 #### [facility] CLIA [id number] [address] [place] [address] [place] CO2 [Moles/Vol] 34 mmol/L High 22-30 [facility] Comment on above: Order Comment: Speci men Type: BLOOD SPECIMEN Ordering Facility: [facility] Address: [address] [place] [address] Performed By: #### 2 4323-8 #### [facility] CLIA [id number] [address] [place] [address] [place] Creatinine [Mass/Vol] 0.59 mg/dL Normal 0.58-0.96 [facility] Comment on above: Order Comment: Speci men Type: BLOOD SPECIMEN Ordering Facility: [facility] Address: [address] [place] [address] Performed By: #### 2 4323-8 #### [facility] CLIA [id number] [address] [place] [address] [place] Creatinine and Glomerular filtration rate.predicted panel (S/P/Bld) 90 mL/min/1.73m??? Normal >=60 [facility] Comment on above: Order Comment: Speci men Type: BLOOD SPECIMEN Ordering Facility: [facility] Address: [address] [place] [address] Result Comment: Sandra mated Glomerular Filtration Rate [...] GFR. Performed By: #### 2 4323-8 #### [facility] CLIA [id number] [address] [place] [address] [place] Glucose [Mass/Vol] 81 mg/dL Normal 74-99 [facility] Comment on above: Order Comment: Nafisa hutton Type: BLOOD SPECIMEN Ordering Facility: [facility] Address: [address] [place] [address] Result Comment: The [place] Diabetes Association (ADA) provides guidance for cutoff [...] Standards of Medical Care in Diabetes 2016, [place] [employer] Association. Diabetes Care. 2016.39(Suppl 1). Performed By: #### 2 4323-8 #### [facility] CLIA [id number] [address] [place] [address] [place] Potassium [Moles/Vol] 3.9 mmol/L Normal 3.7-5.1 [facility] Comment on above: Order Comment: Nafisa hutton Type: BLOOD SPECIMEN Ordering Facility: [facility] Address: [address] [id number] Performed By: #### 2 4323-8 #### [facility] CLIA [id number] [address] [place] [address] [place] Protein [Mass/Vol] 7.2 g/dL Normal 6.3-8.0 [facility] Comment on above: Order Comment: Speci men Type: BLOOD SPECIMEN Ordering Facility: [facility] Address: [address] [place] [address] Performed By: #### 2 4323-8 #### [facility] CLIA [id number] [address] [place] [address] [place] Sodium [Moles/Vol] 141 mmol/L Normal 136-144 [facility] Comment on above: Order Comment: Speci men Type: BLOOD SPECIMEN Ordering Facility: [facility] Address: [address] [place] [address] Performed By: #### 2 4323-8 #### [facility] CLIA [id number] [address] [place] [address] [place] Urea nitrogen [Mass/Vol] 17 mg/dL Normal 7-21 [facility] Comment on above: Order Comment: Speci men Type: BLOOD SPECIMEN Ordering Facility: [facility] Address: [address] [place] [address] Performed By: #### 2 4323-8 #### [facility] CLIA [id number] [address] [place], [place] [address] [place] PAIN PANEL, UR QUANTon 01-18 4-Cavcnmtirz-0,5-Dimet hyl-3,3-Diphenylpyrrol idine (EDDP) Confirm (U) [Mass/Vol] <6 Normal <6 [facility] Comment on above: Order Comment: Speci men Type: URINE SPECIMEN Ordering Facility: External Submitter Address: , , Result Comment: EDDP is a metabolite of methadone. Performed By: #### L [id number] #### [facility] CLIA [id number] [address] [place] [address] [place] 6-Monoacetylmorphine (6-AZAR) (U) [Mass/Vol] <5 Normal <5 [facility] Comment on above: Order Comment: Speci men Type: URINE SPECIMEN Ordering Facility: External Submitter Address: , , Result Comment: 6-MA M (6-monoacetylmorphine, also known as 6-acetylmorphine) is a unique metabolite of heroin. Presence of 6-AZAR indicates use of heroin. 6-AZAR is further metabolized to morphine and absence of 6-AZAR does not rule out the use of heroin. Performed By: #### L [id number] #### [facility] [place] [id number] [address] [place] [address] [place] Amphetamine Confirm (U) [Mass/Vol] <5 Normal <5 [facility] Comment on above: Order Comment: Speci men Type: URINE SPECIMEN Ordering Facility: External Submitter Address: , , Performed By: #### L [id number] #### [facility] [place] [id number] [address] [place] [address] [place] Benzoylecgonine Confirm (U) [Mass/Vol] <24 Normal <24 [facility] Comment on above: Order Comment: Speci men Type: URINE SPECIMEN Ordering Facility: External Submitter Address: , , Result Comment: Daniel oylecgonine is a metabolite of cocaine. Performed By: #### L [id number] #### [facility] [place] [id number] [address] [place] [address] [place] Buprenorphine (U) [Mass/Vol] <20 Normal <20 [facility] Comment on above: Order Comment: Speci men Type: URINE SPECIMEN Ordering Facility: External Submitter Address: , , Performed By: #### L [id number] #### [facility] [place] [id number] [address] [place] [address] [place] Cannabinoids Confirm (U) [Mass/Vol] <16 Normal <16 [facility] Comment on above: Order Comment: Speci men Type: URINE SPECIMEN Ordering Facility: External Submitter Address: , , Result Comment: Tetr ahydrocannabinol carboxylic acid (THCA) is a metabolite of irpta-3-cvoimneulobprbpuzkrt which is the main active component of marijuana. Performed By: #### L [id number] #### [facility] CLIA [id number] [address] [place] Codeine Confirm (U) [Mass/Vol] <11 Normal <11 [facility] Comment on above: Order Comment: Speci men Type: URINE SPECIMEN Ordering Facility: External Submitter Address: , , Performed By: #### L [id number] #### [facility] CLIA [id number] [address] [place] [address] [place] Dihydrocodeine Confirm (U) [Mass/Vol] <5 Normal <5 [facility] Comment on above: Order Comment: Speci men Type: URINE SPECIMEN Ordering Facility: External Submitter Address: , , Performed By: #### L [id number] #### [facility] CLIA [id number] [address] [place] [address] [place] fentaNYL Confirm (U) [Mass/Vol] <6 Normal <6 [facility] Comment on above: Order Comment: Speci men Type: URINE SPECIMEN Ordering Facility: External Submitter Address: , , Performed By: #### L [id number] #### [facility] CLIA [id number] [address] [place] [address] [place] HYDROcodone Confirm (U) [Mass/Vol] <8 Normal <8 [facility] Comment on above: Order Comment: Speci men Type: URINE SPECIMEN Ordering Facility: External Submitter Address: , , Result Comment: Hydr ocodone is a metabolite of dihydrocodeine. Performed By: #### L [id number] #### [facility] CLIA [id number] [address] [place] HYDROmorphone Confirm (U) [Mass/Vol] <5 Normal <5 [facility] Comment on above: Order Comment: Speci men Type: URINE SPECIMEN Ordering Facility: External Submitter Address: , , Result Comment: Hydr omorphone is a metabolite of hydrocodone. Performed By: #### L [id number] #### [facility] CLIA [id number] [address] Methadone Confirm (U) [Mass/Vol] <16 Normal <16 [facility] Comment on above: Order Comment: Speci men Type: URINE SPECIMEN Ordering Facility: External Submitter Address: , , Performed By: #### L [id number] #### [facility] CLIA [id number] [address] Methamphetamine Confirm (U) [Mass/Vol] <8 Normal <8 [facility] Comment on above: Order Comment: Speci men Type: URINE SPECIMEN Ordering Facility: External Submitter Address: , , Performed By: #### L [id number] #### [facility] CLIA [id number] [address] [place] [address] Morphine Confirm (U) [Mass/Vol] <10 Normal <10 [facility] Comment on above: Order Comment: Speci men Type: URINE SPECIMEN Ordering Facility: External Submitter Address: , , Result Comment: Morp paris is a metabolite of codeine and heroin. Performed By: #### L [id number] #### [facility] CLIA [id number] [facility] [address] Norbuprenorphine (U) [Mass/Vol] <20 Normal <20 [facility] Comment on above: Order Comment: Speci men Type: URINE SPECIMEN Ordering Facility: External Submitter Address: , , Result Comment: Norb uprenorphine is the primary active metabolite of buprenorphine. Performed By: #### L [id number] #### [facility] CLIA [id number] [address] [place] [address] Norfentanyl Confirm (U) [Mass/Vol] <6 Normal <6 [facility] Comment on above: Order Comment: Speci men Type: URINE SPECIMEN Ordering Facility: External Submitter Address: , , Result Comment: Norf entanyl is a metabolite of fentanyl. Performed By: #### L [id number] #### [facility] CLIA [id number] [address] STATES OF [facility] Nortramadol (U) [Mass/Vol] >5000 High <20 [facility] Comment on above: Order Comment: Speci men Type: URINE SPECIMEN Ordering Facility: External Submitter Address: , , Result Comment: O-De smethyltramadol is a metabolite of tramadol and its presence indicates use of a tramadol containing drug (Ultram). Performed By: #### L [id number] #### [facility] [place] [id number] [address] [place] [address] Performed By: #### L [id number] #### [facility] [place] [id number] [address] [place] [address] [place] [facility] NOTE,UR PAIN BARRERA Normal [facility] Comment on above: Order Comment: Speci men Type: URINE SPECIMEN Ordering Facility: External Submitter Address: , , Result Comment: This test is for medical use only. This test was developed and its performance characteristics determined by [facility]'s [facility] [place] (-[facility]). It has not been cleared or approved by the FDA. [facility] is regulated under CLIA as qualified to perform high-complexity testing. This test is used for clinical purposes. It should not be regarded as investigational or for research. Performed By: #### L [id number] #### [facility] CLIA [id number] [facility] [address] [place] oxyCODONE Confirm (U) [Mass/Vol] <10 Normal <10 [facility] Comment on above: Order Comment: Speci men Type: URINE SPECIMEN Ordering Facility: External Submitter Address: , , Performed By: #### L [id number] #### [facility] CLIA [id number] [facility] [address] [place] oxyMORphone Confirm (U) [Mass/Vol] <5 Normal <5 [facility] Comment on above: Order Comment: Speci men Type: URINE SPECIMEN Ordering Facility: External Submitter Address: , , Result Comment: Oxym orphone is a metabolite of oxycodone. Performed By: #### L [id number] #### [facility] CLIA [id number] [address] [place] [address] traMADol Confirm (U) [Mass/Vol] >5208 High <25 [facility] Comment on above: Order Comment: Speci men Type: URINE SPECIMEN Ordering Facility: External Submitter Address: , , Result Comment: Pres ence of tramadol indicates use of a tramadol containing drug (Ultram). Tramadol is metabolized to O-Desmethyltramadol. Performed By: #### L [id number] #### [facility] CLIA [id number] [address] [place] [address] Performed By: #### L [id number] #### [facility] CLIA [id number] [address] [place] [address] [place] SPECIMEN VALIDITY, URINEon 0 - CHROMATE,URINE <10 Normal <50 [facility] Comment on above: Order Comment: Speci men Type: URINE SPECIMEN Ordering Facility: External Submitter Address: , , Performed By: #### L [id number] #### [facility] CLIA [id number] [address] [place] [address] [place] CREATININE,URINE 49.5 mg/dL Normal 20.0-300.0 [facility] Comment on above: Order Comment: Speci men Type: URINE SPECIMEN Ordering Facility: External Submitter Address: , , Performed By: #### L [id number] #### [facility] CLIA [id number] [address] [id number] [address] [place] CREATININE,URINE 49.8 mg/dL Normal 20.0-300.0 [facility] Comment on above: Order Comment: Speci men Type: URINE SPECIMEN Ordering Facility: External Submitter Address: , , Performed By: #### L [id number] #### [facility] CLIA [id number] [address] [place] [address] [place] NITRITES,URINE <50 Normal <500 [facility] Comment on above: Order Comment: Speci men Type: URINE SPECIMEN Ordering Facility: External Submitter Address: , , Performed By: #### L [id number] #### [facility] CLIA [id number] [address] [place] [address] [place] OXIDANTS,URINE <38 Normal <200 [facility] Comment on above: Order Comment: Speci men Type: URINE SPECIMEN Ordering Facility: External Submitter Address: , , Performed By: #### L [id number] #### [facility] CLIA [id number] [address] [place] [address] [place] pH (U) 7.2 [pH] Normal 4.5-8.0 [facility] Comment on above: Order Comment: Speci men Type: URINE SPECIMEN Ordering Facility: External Submitter Address: , , Performed By: #### L [id number] #### [facility] CLIA [id number] [address] [place] [address] [place] SPEC GRAVITY,UR 1.020 Normal 1.003-1.03 5 [facility] Comment on above: Order Comment: Speci men Type: URINE SPECIMEN Ordering Facility: External Submitter Address: , , Performed By: #### L [id number] #### [facility] CLIA [id number] [address] [place] [address] [place] SPEC GRAVITY,UR 1.021 Normal 1.003-1.03 5 [facility] Comment on above: Order Comment: Speci men Type: URINE SPECIMEN Ordering Facility: External Submitter Address: , , Performed By: #### L [id number] #### [facility] CLIA [id number] [address] [place] SPECIMEN VALIDITY QUALITY Specimen quality results within acceptable limits Normal [facility] Comment on above: Order Comment: Speci men Type: URINE SPECIMEN Ordering Facility: External Submitter Address: , , Performed By: #### L [id number] #### [facility] CLIA [id number] [address] OF [place] TOXICOLOGY SCREEN, ROUTINE U RINEon 01-19-2024 Amphetamines Confirm (U) [Mass/Vol] Negative Normal Negative [facility] Comment on above: Order Comment: Speci men Type: URINE SPECIMEN Ordering Facility: External Submitter Address: , , Result Comment: Cuto ff threshold at 1000 ng/mL. Performed By: #### U TOX2 #### [facility] CLIA [id number] [address] [place] [id number] [place] [address] [place] BARBITURATES, URINE Negative Normal Negative [facility] Comment on above: Order Comment: Speci men Type: URINE SPECIMEN Ordering Facility: External Submitter Address: , , Result Comment: Cuto ff threshold at 200 ng/mL. Performed By: #### U TOX2 #### [facility] CLIA [id number] [address] [place] [address] [facility] OF [place] BENZODIAZEPINES, UR Negative Normal Negative [facility] Comment on above: Order Comment: Speci men Type: URINE SPECIMEN Ordering Facility: External Submitter Address: , , Result Comment: Cuto ff threshold at 200 ng/mL. Performed By: #### U TOX2 #### [facility] CLIA [id number] [address] [id number] [facility] OF [place] Cannabinoids Screen Ql (U) Negative Normal Negative [facility] Comment on above: Order Comment: Speci men Type: URINE SPECIMEN Ordering Facility: External Submitter Address: , , Result Comment: Cuto ff threshold at 50 ng/mL. Performed By: #### U TOX2 #### [facility] CLIA [id number] [address] [place] [address] [facility] Cocaine Ql (U) Negative Normal Negative [facility] Comment on above: Order Comment: Speci men Type: URINE SPECIMEN Ordering Facility: External Submitter Address: , , Result Comment: Cuto ff threshold at 300 ng/mL. Performed By: #### U TOX2 #### [facility] CLIA [id number] [address] [place] [address] [place] Ethanol (U) [Mass/Vol] <11 Normal <11 [facility] Comment on above: Order Comment: Speci men Type: URINE SPECIMEN Ordering Facility: External Submitter Address: , , Performed By: #### U TOX2 #### [facility] CLIA [id number] [address] [place] [address] [facility] Opiates Screen Ql (U) Negative Normal Negative [facility] Comment on above: Order Comment: Speci men Type: URINE SPECIMEN Ordering Facility: External Submitter Address: , , Result Comment: Cuto ff threshold at 300 ng/mL. Performed By: #### U TOX2 #### [facility] CLIA [id number] [address] [place] [address] [facility] oxyCODONE cutoff Screen (U) [Mass/Vol] Negative Normal Negative [facility] Comment on above: Order Comment: Speci men Type: URINE SPECIMEN Ordering Facility: External Submitter Address: , , Result Comment: Cuto ff threshold at 100 ng/mL. Performed By: #### U TOX2 #### [facility] CLIA [id number] [address] [place] [address] [facility] Phencyclidine Ql (U) Negative Normal Negative [facility] Comment on above: Order Comment: Speci men Type: URINE SPECIMEN Ordering Facility: External Submitter Address: , , Result Comment: Cuto ff threshold at 25 ng/mL. Performed By: #### U TOX2 #### [facility] CLIA [id number] [address] [place] [address] [facility] TRAMADOL + METABOLITE QUANT, URon 01-19-2024 NOTE (TRAQNT) Normal [facility] Comment on above: Order Comment: Speci men Type: URINE SPECIMEN Ordering Facility: External Submitter Address: , , Result Comment: This test is for medical use only. This test was developed and its performance characteristics determined by [facility] [place] [facility] It has not been cleared or approved by the FDA. [facility] is regulated under CLIA as qualified to perform high-complexity testing. This test is used for clinical purposes. It should not be regarded as investigational or for research. Performed By: #### L [id number] #### [facility] CLIA [id number] [address] [place] [address] [place] CBC panel Auto (Bld)on 01-07 Erythrocyte distribution width (RBC) [Ratio] 13.5 % Normal 11.5-15.0 [facility] Comment on above: Order Comment: Speci men Type: URINE SPECIMEN Ordering Facility: External Submitter Address: , , Performed By: #### U TOX2 #### [facility] CLIA [id number] [address] [place] [address] Hematocrit (Bld) [Volume fraction] 47.9 % High 36.0-46.0 [facility] Comment on above: Order Comment: Speci men Type: URINE SPECIMEN Ordering Facility: External Submitter Address: , , Performed By: #### U TOX2 #### [facility] CLIA [id number] [address] [place] [address] [facility] Hemoglobin (Bld) [Mass/Vol] 15.1 g/dL Normal 11.5-15.5 [facility] Comment on above: Order Comment: Speci men Type: URINE SPECIMEN Ordering Facility: External Submitter Address: , , Performed By: #### U TOX2 #### [facility] CLIA [id number] [address] [place] [address] [facility] MCH (RBC) [Entitic mass] 32.5 pg Normal 26.0-34.0 [facility] Comment on above: Order Comment: Speci men Type: URINE SPECIMEN Ordering Facility: External Submitter Address: , , Performed By: #### U TOX2 #### [facility] CLIA [id number] [address] [place] [address] [facility] MCHC (RBC) [Mass/Vol] 31.5 g/dL Normal 30.5-36.0 [facility] Comment on above: Order Comment: Speci men Type: URINE SPECIMEN Ordering Facility: External Submitter Address: , , Performed By: #### U TOX2 #### [facility] CLIA [id number] [address] [place] [address] [facility] MCV (RBC) [Entitic vol] 103.2 fL High 80.0-100.0 [facility] Comment on above: Order Comment: Speci men Type: URINE SPECIMEN Ordering Facility: External Submitter Address: , , Performed By: #### U TOX2 #### [facility] CLIA [id number] [address] [place] [address] [place] Platelet mean volume (Bld) [Entitic vol] 11.0 fL Normal 9.0-12.7 [facility] Comment on above: Order Comment: Speci men Type: URINE SPECIMEN Ordering Facility: External Submitter Address: , , Performed By: #### U TOX2 #### [facility] CLIA [id number] [address] [place] [address] [facility] OF [place] Platelets (Bld) [#/Vol] 190 10*3/uL Normal 150-400 [facility] Comment on above: Order Comment: Speci men Type: URINE SPECIMEN Ordering Facility: External Submitter Address: , , Performed By: #### U TOX2 #### [facility] CLIA [id number] [address] [place] [address] [facility] OF [place] RBC (Bld) [#/Vol] 4.64 10*6/uL Normal 3.90-5.20 [facility] Comment on above: Order Comment: Speci men Type: URINE SPECIMEN Ordering Facility: External Submitter Address: , , Performed By: #### U TOX2 #### [facility] CLIA [id number] [address] [place] [address] [facility] WBC (Bld) [#/Vol] 9.25 10*3/uL Normal 3.70-11.00 [facility] Comment on above: Order Comment: Speci men Type: URINE SPECIMEN Ordering Facility: External Submitter Address: , , Performed By: #### U TOX2 #### [facility] CLIA [id number] [address] [place] [address] [facility] STREP A MOLECULAR (POC)on Procedural Control Valid [facility] Strep A (POCT) Negative Negative [facility] Comprehensive metabolic 2000 panelon 11-06-2023 Albumin [Mass/Vol] 3.7 g/dL Low 3.9-4.9 [facility] Comment on above: Order Comment: Speci men Type: BLOOD SPECIMEN Ordering Facility: [facility] Address: [address] [place] [address] Performed By: #### 2 4323-8, 3016-3 #### [facility] CLIA [id number] [address] ALP [Catalytic activity/Vol] 86 U/L Normal 34-123 [facility] Comment on above: Order Comment: Speci men Type: BLOOD SPECIMEN Ordering Facility: [facility] Address: [address] [place] [address] Performed By: #### 2 4323-8, 3016-3 #### [facility] CLIA [id number] [address] [place] [address] [facility] ALT With P-5'-P [Catalytic activity/Vol] 11 U/L Normal 7-38 [facility] Comment on above: Order Comment: Speci men Type: BLOOD SPECIMEN Ordering Facility: [facility] Address: [address] [place] [address] Performed By: #### 2 4323-8, 3016-3 #### [facility] CLIA [id number] [address] [place] [address] [place] Anion gap [Moles/Vol] 9 mmol/L Normal 9-18 [facility] Comment on above: Order Comment: Speci men Type: BLOOD SPECIMEN Ordering Facility: [facility] Address: [address] [place] [address] Performed By: #### 2 4323-8, 3016-3 #### [facility] CLIA [id number] [address] [place] [address] [place] AST With P-5'-P [Catalytic activity/Vol] 16 U/L Normal 13-35 [facility] Comment on above: Order Comment: Speci men Type: BLOOD SPECIMEN Ordering Facility: [facility] Address: [address] [place] [address] Performed By: #### 2 4323-8, 3016-3 #### [facility] CLIA [id number] [address] [place] [address] [place] Bilirubin [Mass/Vol] 0.6 mg/dL Normal 0.2-1.3 [facility] Comment on above: Order Comment: Speci men Type: BLOOD SPECIMEN Ordering Facility: [facility] Address: [address] [place] [address] Performed By: #### 2 4323-8, 3016-3 #### [facility] CLIA [id number] [address] [place] [address] [place] Calcium [Mass/Vol] 9.4 mg/dL Normal 8.5-10.2 [facility] Comment on above: Order Comment: Speci men Type: BLOOD SPECIMEN Ordering Facility: [facility] Address: [address] [place] [address] Performed By: #### 2 4323-8, 3016-3 #### [facility] CLIA [id number] [address] [place] [address] [place] Chloride [Moles/Vol] 105 mmol/L Normal 97-105 [facility] Comment on above: Order Comment: Speci men Type: BLOOD SPECIMEN Ordering Facility: [facility] Address: [address] [place] [address] Performed By: #### 2 4323-8, 3015-3 #### [facility] CLIA [id number] [address] [place] [address] [facility] CO2 [Moles/Vol] 31 mmol/L High 22-30 [facility] Comment on above: Order Comment: Speci men Type: BLOOD SPECIMEN Ordering Facility: [facility] Address: [address] [place] [address] Performed By: #### 2 4323-8, 3 #### [facility] CLIA [id number] [address] Creatinine [Mass/Vol] 0.58 mg/dL Normal 0.58-0.96 [facility] Comment on above: Order Comment: Speci men Type: BLOOD SPECIMEN Ordering Facility: [facility] Address: [address] [place] [address] Performed By: #### 2 4323-8, 3 #### [facility] CLIA [id number] [address] Creatinine and Glomerular filtration rate.predicted panel (S/P/Bld) 90 mL/min/1.73m??? Normal >=60 [facility] Comment on above: Order Comment: Speci men Type: BLOOD SPECIMEN Ordering Facility: [facility] Address: [address] [place] [address] Result Comment: Sandra mated Glomerular Filtration Rate [...] actual GFR. Performed By: #### 2 4323-8, 3015-3 #### [facility] CLIA [id number] [address] [place] [address] [place] Glucose [Mass/Vol] 87 mg/dL Normal 74-99 [facility] Comment on above: Order Comment: Nafisa hutton Type: BLOOD SPECIMEN Ordering Facility: [facility] Address: [address] [place], [place] [address] Result Comment: The [place] Diabetes Association (ADA) provides guidance for cutoff [...] Standards of Medical Care in Diabetes 2016, [place] Diabetes Association. Diabetes Care. 2016.39(Suppl 1). Performed By: #### 2 4323-8, 3016-3 #### [facility] CLIA [id number] [address] [place] [address] [place] Potassium [Moles/Vol] 3.2 mmol/L Low 3.7-5.1 [facility] Comment on above: Order Comment: Nafisa hutton Type: BLOOD SPECIMEN Ordering Facility: [facility] Address: [address] [place] [address] Performed By: #### 2 4323-8, 6-3 #### [facility] CLIA [id number] [address] [place] [address] [place] Protein [Mass/Vol] 6.7 g/dL Normal 6.3-8.0 [facility] Comment on above: Order Comment: Nafisa hutton Type: BLOOD SPECIMEN Ordering Facility: [facility] Address: [address] [place], [place] [address] Performed By: #### 2 4323-8, 3016-3 #### [facility] CLIA [id number] [address] [place] [address] [place] Sodium [Moles/Vol] 145 mmol/L High 136-144 [facility] Comment on above: Order Comment: Nafisa hutton Type: BLOOD SPECIMEN Ordering Facility: [facility] Address: [address] [place], [place] [address] Performed By: #### 2 4323-8, 3016-3 #### [facility] CLIA [id number] [address] [place] [address] [place] Urea nitrogen [Mass/Vol] 20 mg/dL Normal 7-21 [facility] Comment on above: Order Comment: Nafisa hutton Type: BLOOD SPECIMEN Ordering Facility: [facility] Address: [address] [place] [address] Performed By: #### 2 4323-8, 3015-3 #### [facility] CLIA [id number] [address] [place] [address] [facility] HbA1c (Bld)on 11-06-2023 Average glucose Estimated from glycated hemoglobin (Bld) [Mass/Vol] 105 mg/dL Normal [facility] Comment on above: Order Comment: Nafisa hutton Type: URINE SPECIMEN Ordering Facility: External Submitter Address: , , Result Comment: eAG: (Estimated average glucose) is a calculated value from HgbA1c and is payable representative of the average blood glucose level in the last 2-3 month period. Performed By: #### U TOX2 #### [facility] CLIA [id number] [address] [place] [address] [place] HbA1c (Bld) [Mass fraction] 5.3 % Normal 4.3-5.6 [facility] Comment on above: Order Comment: Nafisa hutton Type: URINE SPECIMEN Ordering Facility: External Submitter Address: , , Result Comment: [place] Diabetes Association guidelines indicate that patients with HgbA1c in the range 5.7-6.4% are at increased risk for development of diabetes, and intervention by lifestyle modification may be beneficial. HgbA1c greater or equal to 6.5% is considered diagnostic of diabetes. Performed By: #### U TOX2 #### [facility] CLIA [id number] [address] [place] [address] [place] TSH SerPl-aCncon 11-06-2023 TSH Qn 1.820 m[IU]/L Normal 0.270-4.20 0 [facility] Comment on above: Order Comment: Speci men Type: BLOOD SPECIMEN Ordering Facility: [facility] Address: [address] [place] [address] Performed By: #### 2 4323-8, 3016-3 #### [facility] CLIA [id number] [address] [place] [address] [place] LUNG DIFFUSION CAPACITY (EM O)on 06-16-2023 DLCO (ml/min/mmHg) 13.12 ml/min/mmHg [facility] DLCO/VA (ml/min/mmHg/L) 5.52 ml/min/mmHg/L [facility] MAN18-74% PRE (L/S) 0.66 L/S [facility] FEV1 PRE (L) 0.90 L [facility] FEV1/FVC PRE (%) 76 % [facility] FVC PRE (L) 1.19 L [facility] PEF PRE (L/S) 2.58 L/S [facility] VA (L) 2.40 L [facility] SPIROMETRY WITH DILATOR IF O BSTRUCTEDon 06-16-2023 [facility] Absolute lymphocyte countOrd ered By: Dr. Giron on 11-21-2022 Lymphocytes Auto (Unsp spec) [#/Vol] 2.24 10*3/uL 0.83-4.51 [facility] Automated blood hematocrit ( percentage)Ordered By: Dr. Giron on 11-21-2022 Hematocrit (Bld) [Volume fraction] 52.2 % 37-47 [facility] Basophil percentageOrdered B y: Dr. Giron on 11-21-2022 Basophils/100 WBC (Bld) 0.6 % 0-1 [facility] Eosinophils/100 WBC (Bld) 0.9 % 0-5 [facility] Neutrophils (Bld) [#/Vol] 7.6 10*3/uL 2.0-7.7 [facility] Neutrophils/100 WBC (Bld) 69.9 % 47-70 [facility] WBC (Bld) [#/Vol] 10.8 10*3/uL 4.4-11.0 [facility] Blood erythrocytes count (nu mber/volume)Ordered By: Dr. Giron on 11-21-2022 RBC (Bld) [#/Vol] 5.25 10*6/uL 4.2-5.4 [facility] Blood hemoglobin measurement (mass/volume)Ordered By: Dr. Giron on 11-21-2022 Hemoglobin (Bld) [Mass/Vol] 16.4 g/dL 12.0-15.0 [facility] Blood lymphocytes/100 leukoc ytesOrdered By: Dr. Giron on 11-21-2022 Lymphocytes/100 WBC (Bld) 20.7 % 19-41 [facility] Blood monocytes/100 leukocyt esOrdered By: Dr. Grion on 11-21-2022 Monocytes/100 WBC (Bld) 7.5 % 0-10 [facility] Blood platelet mean volumeOr dered By: Dr. Giron on 11-21-2022 Platelet mean volume (Bld) [Entitic vol] 10.7 fL 6.2-12.0 [facility] CBC W Auto Differential pane l (Bld)on 11-21-2022 C REACTIVE PROTEIN, HIGH SENSITIVITY, CSF 10.90 [facility] Erythrocyte distribution width (RBC) [Ratio] 13.3 % 11.5 - 14.5 % [facility] Immature Gran % 0.400 % [facility] MCH 31.2 pG 27 - 34 pG [facility] MCHC 31.4 % Abnormal 32 - 36 % [facility] MPV 10.7 % 7.3 - 11.1 % [facility] RDW-SD 49.8 [facility] SED RATE BY MODIFIED WESTEGREN MANUAL 5 [facility] Determination of erythrocyte mean corpuscular volume (MCV)Ordered By: Dr. Giron on 11-21-2022 MCV (RBC) [Entitic vol] 99.4 fL 81-99 [facility] Erythrocyte sedimentation ra teOrdered By: Dr. Giron on 11-21-2022 ESR (Bld) [Velocity] 5 mm/h 0-30 [facility] Laboratory - Hematology and Cell countsOrdered By: Dr. Giron on 11-21-2022 Erythrocyte distribution width (RBC) [Entitic vol] 49.8 fL 35.1-43.9 [facility] Erythrocyte distribution width (RBC) [Ratio] 13.5 % 11.6-14.6 [facility] Immature granulocytes/100 WBC (Bld) 0.400 % 0.0-0.9 [facility] Comment on above: IG% - Immature Granu locytes (promyelocytes, myelocytes and metamyelocytes) > 1% indicates that a LEFT SHIFT is Present. MCH (RBC) [Entitic mass] 31.2 pg 27.0-32.0 [facility] Nucleated RBC/100 WBC (Bld) [Ratio] 0 % 0-5 [facility] MCHC Auto (RBC) [Mass/Vol]Or dered By: Dr. Giron on 11-21-2022 MCHC (RBC) [Mass/Vol] 31.4 g/dL 32-36 [facility] Platelets bldOrdered By: Dr. Giron on 11-21-2022 Platelets (Bld) [#/Vol] 256 10*3/uL 150-450 [facility] Serum or plasma C reactive p rotein measurement (mass/volume)Ordered By: Dr. Giron on 11-21-2022 CRP [Mass/Vol] 10.90 mg/L 0.0-3.0 [facility] Comment on above: C-Reactive Protein ( [...] Electronically Signed Date/Time: 11/16/2022 4:12 PM EDT [employer] [place] [facility] Patient Name: LESLI HERNANDEZ MS : 1940 Exam Date/Time: 11/16/2022 13:44 Procedure: [...] no vocal cord penetration or airway aspiration. [facility] Wilder Cameron MD - 11/16/2022 [facility] Name: [facility] 1940 [id number] Exam Date/Time: 11/16/2022 13:44 Procedure: FL MODIFIED [...] Electronically Signed Date/Time: 11/16/2022 4:12 PM EDT [employer] [facility] Study observation (narrative) [employer] RF videography Hypopharynx a nd Esophagus Views for swallowing function W speech and W barium contrast POOrdered By: Wilder Cameron on 11-16-2022 [employer] Work Phone: RF Esophagus Views W barium contrast Sheri 10-14-2022 Impression: Grossly unremarkable exam. Report Dictated on Electronically Signed By: Reina Mcdonald Electronically Signed Date/Time: 10/14/2022 10:44 AM EST [facility] Patient Name: LESLI HERNANDEZ MS : [...] is noted. Shoulder arthroplasty is also present. [facility] Reina Mcdonald MD - 10/14/2022 Patient Name: LESLI ROSALES : 1940 Exam Date/Time: 10/14/2022 09:45 Procedure: [...] Electronically Signed Date/Time: 10/14/2022 10:44 AM EST [facility] [employer] [facility] Study observation (narrative) [facility] [employer] RF Esophagus Views W barium contrast POOrdered By: Reina Mcdonald on 10-14-2022 [facility] [employer] Work Phone: Laboratory - Drug toxicology on 06-08-2022 Amphetamines Ql (U) Negative <1000 ng/mL [facility] Work Phone: Benzodiazepines Ql (U) Negative < 200 ng/mL [facility] Work Phone: Cannabinoids Screen Ql (U) Negative < 50 ng/mL [facility] Work Phone: Cocaine Ql (U) Negative < 300 ng/mL [facility] Work Phone: Opiates Ql (U) Positive < 300 ng/mL [facility] Work Phone: No Panel Informationon 06-08 MDMA (Ecstasy) Screen Negative < 500 ng/mL [facility] Work Phone: Urine Barbiturates Screen Negative < 200 ng/mL [facility] Work Phone: Urine Drug Screen Comment [facility] Work Phone: Comment on above: CONFIRMATORY [...] Urine Methadone Screen Negative < 300 ng/mL [facility] Work Phone: Urine phencyclidine (PCP) de tectionon 06-08-2022 Phencyclidine Ql (U) Negative < 25 ng/mL [facility] Work Phone: VL Venous Duplex US Lower Ex t Righton 04-26-2022 VL Venous Duplex US Lower Ext Right Patient [facility]: [id number] Ultrasound ACCESSION EXAM DATE/TIME PROCEDURE ORDERING PROVIDER [id number] 04/26/2022 13:49 EDT VL Venous Duplex US MD MERINO RICHARD H Lower Ext Right CPT code 19657 Reason For Exam (VL Venous Duplex US [...] 04/26/2022 2:18 Cardiovascular ACCESSION EXAM DATE/TIME PROCEDURE [id number] 04/26/2022 13:49 EDT VL Venous Duplex US Lower Ext Right CPT code 88373 Reason For Exam (VL Venous Duplex US [...] Transcribed Date and Time: 04/26/2022 2:18 Normal [facility] CR Knee Complete 4+ Views Roldan blanco 04-20-2022 CR Knee Complete 4+ Views Right Patient Name: LESLI ROSALES Diagnostic Radiology ACCESSION EXAM DATE/TIME PROCEDURE ORDERING PROVIDER [id number] 04/20/2022 12:36 EDT CR Knee Complete 4+ MD WILBER, LEXI H Views Right CPT code 98145 Reason For Exam (CR Knee Complete 4+ [...] Transcribed Date and Time: 04/22/2022 1:04 Normal [facility] Absolute lymphocyte counton 02-28-2022 Lymphocytes Auto (Unsp spec) [#/Vol] 2.10 10*3/uL 0.83-4.51 [facility] Work Phone: Basophil percentageon 2021 Basophils/100 WBC (Bld) 0.7 % 0-1 [facility] Work Phone: Eosinophils/100 WBC (Bld) 1.4 % 0-5 [facility] Work Phone: Neutrophils (Bld) [#/Vol] 7.2 10*3/uL 2.0-7.7 [facility] Work Phone: Neutrophils/100 WBC (Bld) 70.4 % 47-70 [facility] Work Phone: WBC (Bld) [#/Vol] 10.3 10*3/uL 4.4-11.0 [facility] Work Phone: Blood erythrocytes count (nu mber/volume)on 02-28-2022 RBC (Bld) [#/Vol] 4.74 10*6/uL 4.2-5.4 [facility] Work Phone: Blood hemoglobin measurement (mass/volume)on 02-28-2022 Hemoglobin (Bld) [Mass/Vol] 15.5 g/dL 12.0-15.0 [facility] Work Phone: Blood lymphocytes/100 leukoc yteson 02-28-2022 Lymphocytes/100 WBC (Bld) 20.5 % 19-41 [facility] Work Phone: Blood monocytes/100 leukocyt eson 02-28-2022 Monocytes/100 WBC (Bld) 6.4 % 0-10 [facility] Work Phone: Blood platelet mean volumeon 02-28-2022 Platelet mean volume (Bld) [Entitic vol] 10.9 fL 6.2-12.0 [facility] Work Phone: [phone] Determination of erythrocyte mean corpuscular volume (MCV)on 02-28-2022 MCV (RBC) [Entitic vol] 103.2 fL 81-99 [facility] Work Phone: [phone] Erythrocyte sedimentation ra finn 02-28-2022 ESR (Bld) [Velocity] 21 mm/h 0-30 [facility] Work Phone: [phone] Hematocrit Auto (Bld) [Volum e fraction]on 02-28-2022 Hematocrit (Bld) [Volume fraction] 48.9 % 37-47 [facility] Work Phone: [phone] Laboratory - Hematology and Cell countson 02-28-2022 Erythrocyte distribution width (RBC) [Entitic vol] 55.6 fL 35.1-43.9 [facility] Work Phone: [phone] Erythrocyte distribution width (RBC) [Ratio] 14.6 % 11.6-14.6 [facility] Work Phone: [phone] Immature granulocytes/100 WBC (Bld) 0.600 % 0.0-0.9 [facility] Work Phone: [phone] Comment on above: IG% - Immature Granu locytes (promyelocytes, myelocytes and metamyelocytes) > 1% indicates that a LEFT SHIFT is Present. MCH (RBC) [Entitic mass] 32.7 pg 27.0-32.0 [facility] Work Phone: [phone] Nucleated RBC/100 WBC (Bld) [Ratio] 0 % 0-5 [facility] Work Phone: [phone] MCHC Auto (RBC) [Mass/Vol]on 02-28-2022 MCHC (RBC) [Mass/Vol] 31.7 g/dL 32-36 [facility] Work Phone: Platelets bldon 02-28-2022 Platelets (Bld) [#/Vol] 268 10*3/uL 150-450 [facility] Work Phone: Serum or plasma C reactive p rotein measurement (mass/volume)on 02-28-2022 CRP [Mass/Vol] 12.60 mg/L 0.0-3.0 [facility] Work Phone: Comment on above: C-Reactive Protein ( CRP) provides useful information for thediagnosis, therapy and monitoring of inflammatory processesand associated diseases. For the evaluation of Relative Riskfor Cardiovascular Disease, a High Sensitivity CRP (HSCRP)should be ordered. CT HEAD W WO CONTRASTon 01-20 Patient Name: [facility]ESLI [facility]DEZ [id number] Computed Tomography ACCESSION EXAM DATE/TIME PROCEDURE ORDERING PROVIDER [id number] 02/09/2022 10:[address] Head or Brain w/ + w/ MD WILBER, LEXI ballard Contrast CPT code 04801 Q9967 Reason For Exam (CT Head or [...] AHMAD Transcribed Date and Time: 02/09/2022 11:03 [facility] Stuart Martin MD - 02/09/2022 Patient [id number] Computed Tomography ACCESSION EXAM DATE/TIME PROCEDURE ORDERING PROVIDER [id number] 02/09/2022 10:[address] Head or Brain w/ + w/ MD WILBER, LEXI H o Contrast CPT code 65853 Q9967 Reason For Exam (CT Head or [...] + w/o Contrast Patient [facility]: [id number] Computed Tomography ACCESSION EXAM DATE/TIME PROCEDURE ORDERING PROVIDER [id number] 02/09/2022 10:[address] Head or Brain w/ + w/ MD WILBER, LEXI Lance o Contrast CPT code 45485 Q9967 Reason For Exam (CT Head or [...] Transcribed Date and Time: 02/09/2022 11:03 Normal [facility] Creatinineon 02-09-2022 Creatinine [Mass/Vol] 0.53 mg/dL Normal 0.52-1.25 [facility] Comment on above: Performed By: #### C RTN3 #### [facility] [address] [place] [address] GFR/1.73 sq M.predicted among blacks MDRD (S/P/Bld) [Vol rate/Area] mL/min/{1.73_m2} Normal >60 [facility] Comment on above: Performed By: #### C RTN3 #### [facility] [address] [facility] [place] [address] GFR/1.73 sq M.predicted among non-blacks MDRD (S/P/Bld) [Vol rate/Area] 89.1 mL/min/{1.73_m2} Normal >60 [facility] Comment on above: Result Comment: KDIG O [...] secretion. Performed By: #### C RTN3 #### [facility] [address] [facility] [place] [address] Creatinine [Mass/Vol] 0.53 mg/dL 0.52 - 1.25 mg/dL [facility] EGFR IF NonAfrican [place] 89.1 mL/min >60 [facility] Comment on above: KDIGO guidelines [...] MDRD (S/P/Bld) [Vol rate/Area] mL/min/{1.73_m2} >60 mL/min [facility] Test Performed by [facility], [address] , [place], [place] [address] [place] [address] LAB [facility] CT Up Ext w/o Contrast Right on 02-01-2022 CT Up Ext w/o Contrast Right Patient Name: LESLI ROSALES Computed Tomography ACCESSION EXAM DATE/TIME PROCEDURE ORDERING PROVIDER [id number] 02/01/2022 11:[address] Up Ext w/o Contrast MD MARY JANE, MALCOM GORDONN Right CPT code 71172 Reason For Exam (CT Up Ext w/o [...] Transcribed Date and Time: 02/01/2022 12:59 Normal [facility] CT Upper Extremity Right WO Contraston 02-01-2022 Patient Name: LESLI HERNANDEZ MS Computed Tomography ACCESSION EXAM DATE/TIME PROCEDURE ORDERING PROVIDER [id number] 02/01/2022 11:[address] Up Ext w/o Contrast MD MARY JANE, MALCOM BARTLETT Right CPT code 50555 Reason For Exam (CT Up Ext w/o [...] JASON Transcribed Date and Time: 02/01/2022 12:59 [facility] Steffen Little MD - 02/01/2022 [id number] Computed Tomography ACCESSION EXAM DATE/TIME PROCEDURE ORDERING PROVIDER [id number] 02/01/2022 11:[address] Up Ext w/o Contrast MD GIRON STEVEN ALAN Right CPT code 21516 Reason For Exam (CT Up Ext w/o [...] JASON Transcribed Date and Time: 02/01/2022 12:59 [facility] Work Phone: Radiology Study observation (narrative) [facility] Work Phone: CT Upper Extremity Right WO ContrastOrdered By: Steffen Little on 02-01-2022 [facility] Work Phone: Gram stain for investigation of transfusion reactionon 12-23-2021 Microscopic observation Gram stain Nom (Unsp spec) [facility] Work Phone: .Auto Diffon 11-06-2021 Basophil, Absolute 0.00 10 3/mcL Normal 0.00-0.19 [facility] Comment on above: Performed By: #### C BC, ADIFF, ANEU, ANSG, ABOG, ALB #### [address] [address] Basophils/100 WBC (Bld) 0.1 % Normal 0.0-2.5 [facility] ([place]) Comment on above: Performed By: #### C BC, ADIFF, ANEU, ANSG, ABOG, ALB #### [address] [address] Eosinophil, Absolute 0.00 10 3/mcL Normal 0.00-0.40 [facility] ([place]) Comment on above: Performed By: #### C BC, ADIFF, ANEU, ANSG, ABOG, ALB #### [address] [address] Eosinophils/100 WBC (Bld) 0.0 % Normal 0.0-7.0 [facility] ([place]) Comment on above: Performed By: #### C BC, ADIFF, ANEU, ANSG, ABOG, ALB #### [address] [address] Lymphocyte, Absolute 1.10 10 3/mcL Normal 0.77-3.85 [facility] ([place]) Comment on above: Performed By: #### C BC, ADIFF, ANEU, ANSG, ABOG, ALB #### [address] [address] Lymphocytes/100 WBC (Bld) 7.0 % Low 10.0-50.0 [facility] [facility] ([place]) Comment on above: Performed By: #### C BC, ADIFF, ANEU, ANSG, ABOG, ALB #### [address] [address] Monocyte, Absolute 1.30 10 3/mcL High 0.15-1.00 [facility] ([place]) Comment on above: Performed By: #### C BC, ADIFF, ANEU, ANSG, ABOG, ALB #### [address] [address] Monocytes/100 WBC (Bld) 8.1 % Normal 1.7-13.0 [facility] ([place]) Comment on above: Performed By: #### C BC, ADIFF, ANEU, ANSG, ABOG, ALB #### [address] [address] Neutrophils/100 WBC (Bld) 84.8 % High 37.0-80.0 [facility] ([place]) Comment on above: Performed By: #### C BC, ADIFF, ANEU, ANSG, ABOG, ALB #### [address] [address] .GFRon 11-06-2021 GFR 76 ml/min/1.73sqm Normal [facility] ([place]) Comment on above: Result Comment: GFR [...] BC, ADIFF, ANEU, ANSG, ABOG, ALB #### [address] [address] GFR Non- 63 ml/min/1.73sqm Normal [facility] ([place]) Comment on above: Result Comment: GFR Population [...] BC, ADIFF, ANEU, ANSG, ABOG, ALB #### [address] [address] .NEUABSon 11-06-2021 Neutrophil, Absolute 13.50 10 3/mcL High 2.85-6.16 [facility] ([place] Comment on above: Performed By: #### C BC, ADIFF, ANEU, ANSG, ABOG, ALB #### [address] [address] BMPon 03-19-2022 BUN/Creatinine Ratio 36 ratio High 7-27 [facility] [place] Comment on above: Performed By: #### C BC, ADIFF, ANEU, ANSG, ABOG, ALB #### [address] [address] Calcium [Mass/Vol] 8.4 mg/dL Normal 8.4-10.2 [facility] ([place] Comment on above: Performed By: #### C BC, ADIFF, ANEU, ANSG, ABOG, ALB #### [address] [address] Chloride [Moles/Vol] 103 mmol/L Normal 98-107 [facility] [place] Comment [place] above: Performed By: #### C BC, ADIFF, ANEU, ANSG, ABOG, ALB #### [address] [address] CO2 [Moles/Vol] 32 mmol/L High 23-31 [facility] ([place] Comment on above: Performed By: #### C BC, ADIFF, ANEU, ANSG, ABOG, ALB #### [address] [address] Creatinine [Mass/Vol] 0.87 mg/dL Normal 0.55-1.02 [facility] [place] Comment [place] above: Performed By: #### C BC, ADIFF, ANEU, ANSG, ABOG, ALB #### [address] [address] Electrolyte Balance 6.0 mEq/L Normal 4.0-15.0 [facility] ([place]) Comment on above: Performed By: #### C BC, ADIFF, ANEU, ANSG, ABOG, ALB #### [address] [address] Glucose [Mass/Vol] 144 mg/dL High 83-110 [facility] [place] Comment on above: Performed By: #### C BC, ADIFF, ANEU, ANSG, ABOG, ALB #### [address] [address] Potassium [Moles/Vol] 4.5 mmol/L Normal 3.5-5.1 [facility] [place] Comment [place] above: Performed By: #### C BC, ADIFF, ANEU, ANSG, ABOG, ALB #### [address] [address] Sodium [Moles/Vol] 141 mmol/L Normal 136-145 [facility] ([place] Comment on above: Performed By: #### C BC, ADIFF, ANEU, ANSG, ABOG, ALB #### [place] [address] Urea nitrogen [Mass/Vol] 31 mg/dL High 7-18 [facility] ([place] Comment on above: Performed By: #### C BC, ADIFF, ANEU, ANSG, ABOG, ALB #### [address] [address] CBCon 11-06-2021 Erythrocyte distribution width (RBC) [Ratio] 15.6 % High 11.5-14.5 [facility] ([place] Comment on above: Performed By: #### C BC, ADIFF, ANEU, ANSG, ABOG, ALB #### [place] [address] Hematocrit (Bld) [Volume fraction] 36.3 % Low 37.0-47.0 [facility] [place] Comment on above: Performed By: #### C BC, ADIFF, ANEU, ANSG, ABOG, ALB #### [place] [address] Hgb 11.9 G/dL Low 12.0-16.0 [facility] ([place] Comment on above: Performed By: #### C BC, ADIFF, ANEU, ANSG, ABOG, ALB #### [place] [id number] MCH (RBC) [Entitic mass] 33.0 pg High 27.0-31.2 [facility] [place] Comment on above: Performed By: #### C BC, ADIFF, ANEU, ANSG, ABOG, ALB #### [place] [address] MCHC 32.8 G/dL Low 33.0-37.0 [facility] ([place] Comment on above: Performed By: #### C BC, ADIFF, ANEU, ANSG, ABOG, ALB #### [place] [address] MCV (RBC) [Entitic vol] 100.6 fL High 80.0-94.0 [facility] ([place] Comment on above: Performed By: #### C BC, ADIFF, ANEU, ANSG, ABOG, ALB #### [place] [address] Platelet 217 10 3/mcL Normal 130-400 [facility] ([place] Comment on above: Performed By: #### C BC, ADIFF, ANEU, ANSG, ABOG, ALB #### [place] [address] Platelet mean volume (Bld) [Entitic vol] 8.6 fL Normal 7.4-10.4 [facility] ([place] Comment on above: Performed By: #### C BC, ADIFF, ANEU, ANSG, ABOG, ALB #### [place] [address] RBC 3.61 10 6/mcL Low 4.20-5.40 [facility] ([place] Comment on above: Performed By: #### C BC, ADIFF, ANEU, ANSG, ABOG, ALB #### [place] [address] WBC 16.00 10 3/mcL High 4.60-10.80 [facility] ([place] Comment on above: Performed By: #### C BC, ADIFF, ANEU, ANSG, ABOG, ALB #### [place] [address] LABORATORYOrdered By: Angeline Garrison on 11-06-2021 Basophil, [...] Date: 11/05/2021 3:28:16 PM Ordering Provider: MALCOM GIRON Normal [facility] ([place] Gel ABOon 11-02-2021 ABO/Rh Interp Positive Invalid Interpretation Code [facility] ([place] Comment on above: Performed By: #### C BC, ADIFF, ANEU, ANSG, ABOG, ALB #### [place] [address] [place], [place] [address] Gel ABSon 11-02-2021 Antibody Screen Gel Negative Normal [facility] ([place]) Comment on above: Performed By: #### A NSG, ABOG #### [address] [address] LABORATORYOrdered By: Onofre Guthrie on 11-02-2021 ABO/Rh [...] 1:39:05 PM Ordering Provider: HOA KOHLI Normal [facility] ([place]) Absolute lymphocyte counton 10-26-2021 Lymphocytes Auto (Unsp spec) [#/Vol] 2.52 10*3/uL 0.83-4.51 [facility] Work Phone: Basophil percentageon 2021 Basophils/100 WBC (Bld) 0.6 % 0-1 [facility] Work Phone: Chloride [Moles/Vol] 103 mmol/L 98-107 [facility] Work Phone: Eosinophils/100 WBC (Bld) 1.9 % 0-5 [facility] Work Phone: Glucose [Mass/Vol] 97 mg/dL 74-106 [facility] Work Phone: Neutrophils (Bld) [#/Vol] 6.7 10*3/uL 2.0-7.7 [facility] Work Phone: Neutrophils/100 WBC (Bld) 66.8 % 47-70 [facility] Work Phone: Potassium [Moles/Vol] 3.8 mmol/L 3.5-5.1 [facility] Work Phone: Sodium [Moles/Vol] 141 mmol/L 136-145 [facility] Work Phone: WBC (Bld) [#/Vol] 10.0 10*3/uL 4.4-11.0 [facility] Work Phone: Blood erythrocytes count (nu mber/volume)on 10-26-2021 RBC (Bld) [#/Vol] 4.81 10*6/uL 4.2-5.4 [facility] Work Phone: Blood hemoglobin measurement (mass/volume)on 10-26-2021 Hemoglobin (Bld) [Mass/Vol] 15.4 g/dL 12.0-15.0 [facility] Work Phone: Blood lymphocytes/100 leukoc yteson 10-26-2021 Lymphocytes/100 WBC (Bld) 25.1 % 19-41 [facility] Work Phone: Blood monocytes/100 leukocyt eson 10-26-2021 Monocytes/100 WBC (Bld) 5.3 % 0-10 [facility] Work Phone: [phone] Blood platelet mean volumeon 10-26-2021 Platelet mean volume (Bld) [Entitic vol] 10.8 fL 6.2-12.0 [facility] Work Phone: [phone] Determination of erythrocyte mean corpuscular volume (MCV)on 10-26-2021 MCV (RBC) [Entitic vol] 103.3 fL 81-99 [facility] Work Phone: [phone] Hematocrit Auto (Bld) [Volum e fraction]on 10-26-2021 Hematocrit (Bld) [Volume fraction] 49.7 % 37-47 [facility] Work Phone: [phone] Laboratory - Chemistry and C hemistry - challengeon 10-26-2021 CO2 [Moles/Vol] 34.0 mmol/L 21.0-32.0 [facility] Work Phone: [phone] Urea nitrogen/Creatinine [Mass ratio] 30.9 mg/mg 10-20 [facility] Work Phone: [phone] Laboratory - Hematology and Cell countson 10-26-2021 Erythrocyte distribution width (RBC) [Entitic vol] 55.3 fL 35.1-43.9 [facility] Work Phone: [phone] Erythrocyte distribution width (RBC) [Ratio] 14.5 % 11.6-14.6 [facility] Work Phone: [phone] Immature granulocytes/100 WBC (Bld) 0.300 % 0.0-0.9 [facility] Work Phone: [phone] Comment on above: IG% - Immature Granu locytes (promyelocytes, myelocytes and metamyelocytes) > 1% indicates that a LEFT SHIFT is Present. MCH (RBC) [Entitic mass] 32.0 pg 27.0-32.0 [facility] Work Phone: [phone] Nucleated RBC/100 WBC (Bld) [Ratio] 0 % 0-5 [facility] Work Phone: [phone] MCHC Auto (RBC) [Mass/Vol]on 10-26-2021 MCHC (RBC) [Mass/Vol] 31.0 g/dL 32-36 [facility] Work Phone: No Panel Informationon 10-26 Estimated GFR (MDRD) Amer 120 mL/min >60 [facility] Work Phone: Comment on above: GFR Calc Estimated GFR (MDRD) Non-Af Amer 99 mL/min >60 [facility] Work Phone: Comment on above: Non- GFR Calc Platelets bldon 10-26-2021 Platelets (Bld) [#/Vol] 253 10*3/uL 150-450 [facility] Work Phone: Serum or plasma albumin azael urement (mass/volume)on 10-26-2021 Albumin [Mass/Vol] 3.4 g/dL 3.2-5.0 [facility] Work Phone: Serum or plasma calcium azael urement (mass/volume)on 10-26-2021 Calcium [Mass/Vol] 9.5 mg/dL 8.5-10.1 [facility] Work Phone: Serum or plasma creatinine m easurement (mass/volume)on 10-26-2021 Creatinine [Mass/Vol] 0.61 mg/dL 0.55-1.02 [facility] Work Phone: Comment on above: The validity of the calculated GFR & GFRAA in patients over 70 years has not been determined. Clinical correlation is essential. Serum or plasma urea nitroge n measurement (mass/volume)on 10-26-2021 Urea nitrogen [Mass/Vol] 19 mg/dL 7-18 [facility] Work Phone: Thin prep Papanicolaou smear with manual screeningon 10-26-2021 Thin prep Papanicolaou smear with manual screening 4 5-15 [facility] Work Phone: .Auto Diffon 09-03-2021 Basophil, Absolute 0.10 10 3/mcL Normal 0.00-0.19 [facility] Comment on above: Performed By: #### C BC, ADIFF, ANEU, ANSG, ABOG, ALB #### [address] [address] Basophils/100 WBC (Bld) 0.8 % Normal 0.0-2.5 [facility] ([place]) Comment on above: Performed By: #### C BC, ADIFF, ANEU, ANSG, ABOG, ALB #### [address] [address] Eosinophil, Absolute 0.20 10 3/mcL Normal 0.00-0.40 [facility] ([place]) Comment on above: Performed By: #### C BC, ADIFF, ANEU, ANSG, ABOG, ALB #### [address] [address] Eosinophils/100 WBC (Bld) 2.3 % Normal 0.0-7.0 [facility] [place] Comment on above: Performed By: #### C BC, ADIFF, ANEU, ANSG, ABOG, ALB #### [address] [address] Lymphocyte, Absolute 1.90 10 3/mcL Normal 0.77-3.85 [facility] [place] Comment on above: Performed By: #### C BC, ADIFF, ANEU, ANSG, ABOG, ALB #### [address] [address] Lymphocytes/100 WBC (Bld) 24.6 % Normal 10.0-50.0 [facility] [place] Comment on above: Performed By: #### C BC, ADIFF, ANEU, ANSG, ABOG, ALB #### [address] [address] Monocyte, Absolute 0.50 10 3/mcL Normal 0.15-1.00 [facility] [place] Comment on above: Performed By: #### C BC, ADIFF, ANEU, ANSG, ABOG, ALB #### [address] [address] Monocytes/100 WBC (Bld) 6.9 % Normal 1.7-13.0 [facility] ([place] Comment on above: Performed By: #### C BC, ADIFF, ANEU, ANSG, ABOG, ALB #### [address] [address] Neutrophils/100 WBC (Bld) 65.4 % Normal 37.0-80.0 [facility] ([place] Comment on above: Performed By: #### C BC, ADIFF, ANEU, ANSG, ABOG, ALB #### [address] [address] .GFRon 09-03-2021 GFR 147 ml/min/1.73sqm Normal [facility] ([place] Comment on above: Result Comment: GFR Population [...] Performed By: #### B MP, GFR #### [address] [address] GFR Non- 122 ml/min/1.73sqm Normal [facility] ([place] Comment on above: Result Comment: GFR Population [...] Performed By: #### B MP, GFR #### [address] [address] .NEUABSon 09-03-2021 Neutrophil, Absolute 5.00 10 3/mcL Normal 2.85-6.16 [facility] ([place] Comment on above: Performed By: #### C BC, ADIFF, ANEU, ANSG, ABOG, ALB #### [address] [address] ALBon 09-03-2021 Albumin Level 3.4 G/dL Normal 3.4-4.8 [facility] ([place] Comment on above: Performed By: #### C BC, ADIFF, ANEU, ANSG, ABOG, ALB #### [address] [address] BMPon 09-03-2021 BUN/Creatinine Ratio 45 ratio High 7-27 [facility] [place] Comment [place] above: Performed By: #### B MP, GFR #### [address] [address] Calcium [Mass/Vol] 9.1 mg/dL Normal 8.4-10.2 [facility] [place] Comment on above: Performed By: #### B MP, GFR #### [address] [address] Chloride [Moles/Vol] 105 mmol/L Normal 98-107 [facility] [place] Comment [place] above: Performed By: #### B MP, GFR #### [address] [address] CO2 [Moles/Vol] 34 mmol/L High 23-31 [facility] ([place] Comment on above: Performed By: #### B MP, GFR #### [address] [address] Creatinine [Mass/Vol] 0.49 mg/dL Low 0.55-1.02 [facility] [place] Comment [place] above: Performed By: #### B MP, GFR #### [address] [address] Electrolyte Balance 5.0 mEq/L Normal 4.0-15.0 [facility] [place] Comment on above: Performed By: #### B MP, GFR #### [address] [address] Glucose [Mass/Vol] 84 mg/dL Normal 83-110 [facility] [place] Comment on above: Performed By: #### B MP, GFR #### [address] [address] Potassium [Moles/Vol] 4.1 mmol/L Normal 3.5-5.1 [facility] [place] Comment [place] above: Performed By: #### B MP, GFR #### [address] [address] Sodium [Moles/Vol] 144 mmol/L Normal 136-145 [facility] [place] Comment on above: Performed By: #### B MP, GFR #### [address] [address] Urea nitrogen [Mass/Vol] 22 mg/dL High 7-18 [facility] ([place] Comment on above: Performed By: #### B MP, GFR #### [address] [address] CBCon 09-03-2021 Erythrocyte distribution width (RBC) [Ratio] 14.4 % Normal 11.5-14.5 [facility]) Comment on above: Order Comment: Pre-A dmission Testing Performed By: #### C BC, ADIFF, ANEU, ANSG, ABOG, ALB #### [address] [address] Hematocrit (Bld) [Volume fraction] 46.8 % Normal 37.0-47.0 [facility] ([place] Comment on above: Order Comment: Pre-A dmission Testing Performed By: #### C BC, ADIFF, ANEU, ANSG, ABOG, ALB #### [address] [address] Hgb 15.0 G/dL Normal 12.0-16.0 [facility] ([place] Comment on above: Order Comment: Pre-A dmission Testing Performed By: #### C BC, ADIFF, ANEU, ANSG, ABOG, ALB #### [address] [address] MCH (RBC) [Entitic mass] 32.2 pg High 27.0-31.2 [facility] [place] Comment on above: Order Comment: Pre-A dmission Testing Performed By: #### C BC, ADIFF, ANEU, ANSG, ABOG, ALB #### [address] [address] MCHC 32.1 G/dL Low 33.0-37.0 [facility] [place] Comment on above: Order Comment: Pre-A dmission Testing Performed By: #### C BC, ADIFF, ANEU, ANSG, ABOG, ALB #### [address] [address] MCV (RBC) [Entitic vol] 100.5 fL High 80.0-94.0 [facility] ([place] Comment on above: Order Comment: Pre-A dmission Testing Performed By: #### C BC, ADIFF, ANEU, ANSG, ABOG, ALB #### [address] [address] Platelet 248 10 3/mcL Normal 130-400 [facility] ([place] Comment on above: Order Comment: Pre-A dmission Testing Performed By: #### C BC, ADIFF, ANEU, ANSG, ABOG, ALB #### [address] [address] Platelet mean volume (Bld) [Entitic vol] 8.8 fL Normal 7.4-10.4 [facility] ([place] Comment on above: Order Comment: Pre-A dmission Testing Performed By: #### C BC, ADIFF, ANEU, ANSG, ABOG, ALB #### [address] [address] RBC 4.66 10 6/mcL Normal 4.20-5.40 [facility] ([place] Comment on above: Order Comment: Pre-A dmission Testing Performed By: #### C BC, ADIFF, ANEU, ANSG, ABOG, ALB #### [address] [address] WBC 7.70 10 3/mcL Normal 4.60-10.80 [facility] ([place] Comment on above: Order Comment: Pre-A dmission Testing Performed By: #### C BC, ADIFF, ANEU, ANSG, ABOG, ALB #### [address] [address] Gel ABOon 09-03-2021 ABO/Rh Interp Positive Invalid Interpretation Code [facility] ([place] Comment on above: Performed By: #### C BC, ADIFF, ANEU, ANSG, ABOG, ALB #### [address] [address] Gel ABSon 09-03-2021 Antibody Screen Gel Negative Normal [facility] [place] Comment on above: Performed By: #### C BC, ADIFF, ANEU, ANSG, ABOG, ALB #### [address] [address] LABORATORYOrdered By: Dalia Natarajan on 09-03-2021 ABO/Rh [...] Date: 09/03/2021 12:54:24 PM Ordering Provider: MALCOM Philip [facility] ([place] ALLIED HEALTHon 07-10-2021 ALLIED HEALTH HNO ID: [id number] Author: Jeanie Mackey RDMS Service: Radiology Author Type: Private Wealth Advisor Type: Allied Health Filed: 07/10/2021 5:42 PM [...] Mackey RDMS July 10, 2021 5:[address] [facility] CT SHOULDER WO IVCON RTon CT SHOULDER WO IVCON RT * * *Final Report* * * DATE OF EXAM: Jul 10 2021 5:04PM [facility] [place]OULD[place] WO IVCON RT [...] of the right humeral head and neck Coat Baster: MALACHI Transcribe Date/Time: Jul 10 2021 5:19P Dictated by : ZULMA TORRES MD This examination was interpreted and the report reviewed and electronically signed by: ZULMA TORRES MD on Jul 10 2021 5:24PM EST [id number] [facility] ED NOTEon 07-10-2021 ED NOTE HNO ID: [id number] Author: Viv Keith RN Service: Nursing Author Type: Registered Nurse Type: ED Notes Filed: 07/10/2021 6:30 PM Note Text: VSS. Copy of CT handed to patient. She is aware of discharge instructions, follow up care with ortho, medication to take at home for pain and when to seek medical attention. Her right arm was wrapped in morales wraps and placed back in her sling. She was pushed out to family's car in wheelchair. Thankful for care. [facility] ED NOTE HNO ID: [id number] Author: Viv Keith RN Service: Nursing Author Type: Registered Nurse Type: ED Notes Filed: 07/10/2021 5:08 PM Note Text: Ultrasound at . [facility] ED NOTE HNO ID: [id number] Author: Viv Keith RN Service: Nursing Author Type: Registered Nurse Type: ED Notes Filed: 07/10/2021 4:38 PM Note Text: Assisted patient to BS and back to bed safely. Voided. Awaiting imaging. [facility] ED NOTE HNO ID: [id number] Author: Viv Keith RN Service: Nursing Author Type: Registered Nurse Type: ED Notes Filed: 07/10/2021 2:56 PM Note Text: Right arm was splinted at [facility] yesterday. She has been in a sling x 2 weeks post fall. Patient is concerned for blood clot in the right arm bc of her bruising that is now going down her arm. +sensation in the right hand and fingers. [facility] ED NOTE HNO ID: [id number] Author: Allegra Mccray RN Service: ? Author Type: Registered Nurse Type: ED Notes Filed: 07/10/2021 12:23 PM Note Text: Pt presents with orders from her PCP for CT and ultrasound of right arm d/t increased bruising and edema s/p shoulder fracture. [facility] ED PROV NOTEon 07-10-2021 ED PROV NOTE HNO ID: [id number] Author: Tiago Gregorio PA-C Service: ? Author Type: Physician Pellet Post Inspector Type: ED Provider Notes Filed: 07/10/2021 5:58 [...] imaged segments of the right upper extremity. Coat Baster: PSCB Transcribe Date/Time: Jul 10 2021 5:49P Dictated [...] ED with p (more content not included)... [facility] US DVT UPPER RTon 07-10-2021 US DVT [...] imaged segments of the right upper extremity. Coat Baster: PSCB Transcribe Date/Time: Jul 10 2021 5:49P Dictated by : ZULMA TORRES MD This examination was interpreted and the report reviewed and electronically signed by: ZULMA TORRES MD on Jul 10 2021 5:50PM EST [id number] [facility] CT Chest w/ Contraston 05-17 CT Chest w/ Contrast Patient Name: LESLI GUADALUPE AMS Computed Tomography ACCESSION EXAM DATE/TIME PROCEDURE ORDERING PROVIDER [id number] 05/17/2021 15:[address] Thorax w/ Contrast Marleni FRIAS MICHAEL CPT code 92989 Q9967 Reason For Exam (CT Thorax w/ [...] Transcribed Date and Time: 05/18/2021 1:26 Normal [facility] MRI Upper Extremity Right WO JT WO ContrastOrdered By: Cedric Solomon on 04-02-2021 [id number] ACCESSION EXAM DATE/TIME PROCEDURE ORDERING PROVIDER [id number] 04/02/2021 13:50 EDT MRI Up Ext Non Joint w/o MD JEANMARIE, CEDRIC Barnes Right CPT code 19556 Reason For Exam (MRI Up Ext Non [...] Time: 04/02/2021 4:03 [facility] Work Phone: [facility] From [facility] - 04/02/2021 4:03 PM EDT [facility]: [id number] Resonance Imaging ACCESSION EXAM DATE/TIME PROCEDURE ORDERING PROVIDER [id number] 04/02/2021 13:50 EDT MRI Up Ext Non Joint w/o MD JEANMARIE, CEDRIC Barnes Right CPT code 01935 Reason For Exam (MRI Up Ext Non [...] NEIL Transcribed Date and Time: 04/02/2021 4:03 [facility] Work [facility]: ECHO Complete 2D W Doppler W ColorOrdered By: Nieves Frias on 02-11-2021 TRANSTHORACIC ECHOCARDIOGRAM PATIENT: Lesli Rosales STUDY DATE: 02/11/2021 : 1940 AGE: 80 HT/WT: 157.5 cm (62 85.7 kg in) (188.6 lb) GENDER: F BP: 140 / 74 LOCATION: [facility] PATIENT Outpatient [facility] STATUS: *ORDERING PHYSICIAN: * Altagracia, *FELLOW: * Martin Flores MD *READING PHYSICIAN: * Bob *SKIRT PANEL ASSEMBLER: * Makenna Owens MD [facility] INDICATIONS: Aortic stenosis. CONCLUSIONS SUMMARY: 1. Left [...] LV ID, ES (more content not included)... [employer] Work Phone: Sky, [facility] Incoming Cardiology Results From [employer] - 02/11/2021 5:00 PM EDT TRANSTHORACIC ECHOCARDIOGRAM PATIENT: Lesli Rosales STUDY DATE: 02/11/2021 : 1940 AGE: 80 HT/WT: 157.5 cm (62 85.7 kg in) (188.6 lb) GENDER: F BP: 140 / 74 LOCATION: [facility] PATIENT Outpatient [facility] STATUS: *ORDERING PHYSICIAN: * Altagracia, *FELLOW: * Martin Flores MD *READING PHYSICIAN: * Bob *SKIRT PANEL ASSEMBLER: * MD PONCE Tate INDICATIONS: Aortic stenosis. CONCLUSIONS SUMMARY: 1. Left [...] 46 - 106 (more content not included)... [facility] Work Phone: [facility] Work Phone: XR CHEST (2 VW)Ordered By: Yanely Frias on 12-11-2020 Patient Name: LESLI HERNANDEZ MS Diagnostic Radiology ACCESSION EXAM DATE/TIME PROCEDURE ORDERING PROVIDER [id number] 12/11/2020 11:26 EDT CR Chest PA & LAT Marleni FRIAS MICHAEL CPT code 80885 Reason For Exam (CR Chest PA & [...] and Time: 12/11/2020 6:38 [facility] Work Phone: [facility], [facility] Incoming Radiology Results From [facility] - 12/11/2020 6:38 PM EDT [facility]: [id number] Radiology ACCESSION EXAM DATE/TIME PROCEDURE ORDERING PROVIDER [id number] 12/11/2020 11:26 EDT CR Chest PA & LAT Marleni FRIAS MICHAEL CPT code 13810 Reason For Exam (CR Chest PA & [...] ALFRED Transcribed Date and Time: 12/11/2020 6:38 [facility] Work Phone: Differential,Body Fluidson 1 08-29-2016 Other Cells 2 % Normal [facility] Comment on above: Order Comment: BAL R ULFluid Result Comment: Bloo dy specimen with rare alveolar macrophages, numerousreactive respiratory epithelial cells and acute inflammation.honey producer Performed By: #### E SR, ANCA, ARIANE ####[place] [address] CR Chest 1 View Frontalon CR Chest 1 View Frontal Patient Name: LESLI ROSALES Diagnostic Radiology Exam Date/Time 06/28/2017 15:24:31 EST Exam CR Chest 1 View Frontal Ordering Physician JANICE NARAYAN Accession Number [id number] CPT4 Codes 57129 () Reason For Exam low oxygen saturationportable [...] ANN Transcribed Date and Time: 06/28/2017 5:03 [facility] CR Chest 1 View Frontal Patient Name: LESLI ROSALES Diagnostic Radiology Exam Date/Time 06/28/2017 10:06:29 EST Exam CR Chest 1 View Frontal Ordering Physician JANICE NARAYAN Accession Number [id number] CPT4 Codes 49662 () Reason For Exam POST ENB Report [...] AHMAD Transcribed Date and Time: 06/28/2017 10:17 Normal [facility] CULT./ST. RESPIRATORYon 11-0 CULT./ST. [facility] Patient name: LESLI ROSALES Jose Alberto MMorrisR.N.: [id number] : 1940 Age: 77 Sex: F Ord. Physician: JANICE NARAYAN Location: [id number] Copy to: JANICE NARAYAN DISCHARGED: 06/28/17 Adm. Date: 06/28/17 MICROBIOLOGYORDER#: [id number] COLLECTED: 06/28/17 09:30SOURCE: Respiratory (BAL)RUL RECEIVED: 06/28/17 10:38STAIN GRAM FINAL 06/28/17 12:39108/28/16Few polymorphonuclear cells/lpf.No organisms seen.CULT./ST. RESPIRATORY FINAL 06/30/17 12:42108/30/16Few normal respiratory liseth. Normal [facility] Comment on above: Performed By: #### C S/RE ####[address] [place] [address] CULTURE ANAEROBEon 7 CULTURE ANAEROBE Test CULTURE ANAEROB E was cancelled, 06/28/17 10:41 inappropriate specimen. [facility] Patient name: LESLI ROSALES Jose Alberto IsbellR.N.: [id number] : 1940 Age: 77 Sex: F Ord. Physician: JANICE NARAYAN Location: BuildDirect Copy to: JANICE NARAYAN Adm. Date: 06/28/17 MICROBIOLOGYORDER#: [id number] COLLECTED: 06/28/17 09:30SOURCE: Respiratory (BAL)RUL RECEIVED: 06/28/17 10:38 Normal [facility] Comment on above: Performed By: #### C S/RE ####[address] [place] [address] CULTURE FUNGUSon 06-28-2017 CULTURE FUNGUS [facility] Patient name: LESLI ROSALES Jose Alberto IsbellR.N.: [id number] : 1940 Age: 77 Sex: F Ord. Physician: JANICE NARAYAN Location: [id number] Copy to: JANICE NARAYAN DISCHARGED: 06/28/17 Adm. Date: 06/28/17 MICROBIOLOGYORDER#: [id number] COLLECTED: 06/28/17 09:30SOURCE: Respiratory (BAL) RUL RECEIVED: 06/28/17 10:39CULTURE FUNGUS FINAL 07/20/17 07:5311No fungus isolated after 21 days. Normal [facility] Comment on above: Performed By: #### E FILIPE HERNANDEZ, ARIANE ####[place] [id number] CULTURE MYCOBACTERIA Conc.on 06-28-2017 CULTURE MYCOBACTERIA Conc. [facility] Patient name: LESLI ROSALES M.R.N.: [id number] : 1940 Age: 77 Sex: F Ord. Physician: JANICE NARAYAN Location: [address] Copy to: JANICE NARAYAN DISCHARGED: 06/28/17 Adm. Date: 06/28/17 MICROBIOLOGYORDER#: [id number] COLLECTED: 06/28/17 09:30SOURCE: Respiratory (BAL)RUL RECEIVED: 06/28/17 10:40CULTURE MYCOBACTERIA Conc. FINAL 08/12/17 17:19108/28/16Test performed at [facility] Microbiology Lab08/12/17No acid-fast bacilli isolated after 6 weeks incubation. Normal [facility] Comment on above: Performed By: #### E FILIPE HERNANDEZ, ARIANE ####[place] [address] Cell Count,Body Fluidon 11-0 [place] [address] {RBC}/uL Normal [facility] Comment on above: Order Comment: BAL R ULFluid Result Comment: JC ECTED RESULT...Previous above value was , verified on 06/28/17 at12:53 by SLSK . Performed By: #### F LARISSA ALANIS ####[place] [id number] Nucleated Cells 411 {cells}/uL Normal [facility] Comment on above: Order Comment: BAL R ULFluid Performed By: #### F ZEKE, LARISSA ####[address] [place] [address] Fluid Type BAL RUL Normal [facility] Comment on above: Order Comment: BAL R ULFluid Performed By: #### F LDCC, DIFBF ####[place] [address] [place] [address] Differential,Body Fluidson 1 08-28-2016 Cells Counted for Diff 200 Normal [facility] Comment on above: Order Comment: BAL R ULFluid Result Comment: Inte rpret cell count/differential with caution; clumps ofcells observed. Performed By: #### Serg HERNANDEZ ANCA, ARIANE ####[place] [address] [place] [address] Eosinophils/100 leukocytes 6 % Normal [facility] Comment on above: Order Comment: BAL R ULFluid Performed By: #### Serg HERNANDEZ ANCA, ARIANE ####[address] [address] Lymphocytes/100 leukocytes 12 % Normal [facility] Comment on above: Order Comment: BAL R ULFluid Performed By: #### Serg HERNANDEZ ANCA, ARIANE ####[place] [address] [place] [address] Macrophages 3 % Normal [facility] Comment on above: Order Comment: BAL R ULFluid Performed By: #### Serg HERNANDEZ, ANCA, ARIANE ####[address] [place] [address] Monocytes/100 leukocytes 2 % Normal [facility] Comment on above: Order Comment: BAL R ULFluid Performed By: #### Serg HERNANDEZ ANCA, ARIANE ####[place] [address] [place] [address] Neutrophils/100 leukocytes 75 % Normal [facility] Comment on above: Order Comment: BAL R ULFluid Performed By: #### E , ANCA, ARIANE ####[address] [place] [address] Medical Cytologyon 7 Medical Cytology [facility] [id number] DEPARTMENT OF PATHOLOGY AND [facility] LABORATORY MEDICINE [address] [place] [address] FINAL MEDICAL CYTOLOGY REPORT NAME: LESLI ROSALES .O.B.: 1940 77 Y F BILLING NO.: [id number]: PAC1O PACU OUTPT 1PAC PROCEDURE 06/28/2017 02 DATE:PHYSICIAN: JANICE NARAYAN M.D. RECEIVED DATE: 06/28/2017ATTENDING: JANICE NARAYAN M.D. REPORT DATE: 06/29/2017COPIES TO: CLI NICAL DATA: Lung noduleDIAGNOSISNO MALIGNANT CELLS IDENTIFIED.NO SIGNIFICANT MICROORGANISMS OR VIRAL CELLULAR CHANGES IDENTIFIED.Adequate specimen containing > 90% alveolar macrophages.Comment: ADDITIONAL CYTOLOGY CASES EXIST FOR THIS SAME DATE OFSPECIMEN: BRONCHOALVEOLAR LAVAGE, RIGHT , RULPROCEDURE(S): LAVAGEGROSS DESCRIPTION: [...] theirperformance characteristics determined by the [facility]. They have not been cleared by the US Food and DrugAdministration (FDA). The FDA has determined that such clearance orapproval is not necessary.All the above immunostains were performed on paraffin embedded tissue.Appropriate positive and negative controls (where applicable) were runin parallel with the patient's specimen; these controls showed expectedstaining pattern, with acceptable intensity of staining.Immunohistochemic al assays have not been validated on decalcifiedtissues. Results should be interpreted with caution given the raisedpossibility of false negativity on decalcified specimens.Case reviewed at [facility] [address] [facility] [id number]. DEPARTMENT OF PATHOLOGY AND LABORATORY MEDICINE [place], [place] [address] Normal [facility] Comment on above: Performed By: #### E , ARIANE DENT ####[place] [address] [place] [address] Medical Cytology [facility] [id number] DEPARTMENT OF PATHOLOGY AND [facility] LABORATORY MEDICINE [address] [place] [address] SUPPLEMENTAL MEDICAL CYTOLOGY REPORT NAME: LESLI ROSALES .O.B.: 1940 77 Y F BILLING NO.: [id number]: PAC1O PACU OUTPT 1PAC PROCEDURE 06/28/2017 02 DATE:PHYSICIAN: JANICE NARAYAN M.D. RECEIVED DATE: 06/28/2017ATTENDING: JANICE NARAYAN M.D. REPORT DATE: 06/29/2017COPIES TO:CLINICAL DATA: RUL lung noduleDIAGNOSISRARE ATYPICAL EPITHELIAL CELLS PRESENT OF UNCERTAIN SIGNIFICANCE.Adequate cellular material including numerous well preservedrespiratory epithelial cells and macrophages.SUPPLEMENTAL REPORT: (07/06/17)Immunohistochemi sandhya staining for p40 and TTF-1 was performed [...] all immunohistochemistry,in situ hybridization, molecular studies, and immunofluorescencetesting. The use of one or more reagents in the above tests is regulated as ananalyte specific reagent (ASR). These tests were developed and theirperformance characteristics determined by the clinical laboratories [facility]. They have not been cleared by the US Food and DrugAdministration (FDA). The FDA has determined that such clearance orapproval is not necessary.All the above immunostains were performed on paraffin embedded tissue.Appropriate positive and negative controls (where applicable) were runin parallel with the patient's specimen; these controls showed expectedstaining pattern, with acceptable intensity of staining.Immunohistochemic al assays have not been validated on decalcifiedtissues. Results should be interpreted with caution given the raisedpossibility of false negativity on decalcified specimens.Case reviewed at [facility] [address] [place] [place], [place]. DEPARTMENT OF PATHOLOGY AND LABORATORY MEDICINE [place], [place] [address] Normal [facility] Comment on above: Performed By: #### E SR, ANCA, ARIANE ####[address] [address] STAIN ACID-FASTon 06-28-2017 STAIN ACID-FAST [facility] Patient name: CONNIELESLIN.: [id number] : 1940 Age: 77 Sex: F Ord. Physician: JANICE NARAYAN Location: [address] Copy to: JANICE NARAYAN DISCHARGED: 06/28/17 Adm. Date: 06/28/17 MICROBIOLOGYORDER#: [id number] COLLECTED: 06/28/17 09:30SOURCE: Respiratory (BAL)RUL RECEIVED: 06/28/17 10:40STAIN ACID-FAST FINAL 06/28/17 18:4611/04/06No acid-fast bacilli seen in smear.-Method: Fluorescent Stain Normal [facility] Comment on above: Performed By: #### FILIPE Ulrich SR, ARIANE ####[place] [address] STAIN FUNGUSon 06-28-2017 STAIN FUNGUS [facility] Patient name: LESLI ROSALES Jose Alberto M.R.N.: [id number] : 1940 Age: 77 Sex: F Ord. Physician: JANICE NARAYAN Location: [address] Copy to: JANICE NARAYAN DISCHARGED: 06/28/17 Adm. Date: 06/28/17 MICROBIOLOGYORDER#: [id number] COLLECTED: 06/28/17 09:30SOURCE: Respiratory (BAL) RUL RECEIVED: 06/28/17 10:39STAIN FUNGUS FINAL 06/29/17 10:5011/05/07No fungal elements seen.-Method: Direct Exam by Calcofluor Stain [facility] Comment on above: Performed By: #### FILIPE Ulrich SR, ARIANE ####[place] [id number] Surgical Pathologyon [facility] [id number] [facility] PATH[facility] AND LABORATORY MEDICINE [address] [place], [place] [id number] SUPPLEMENTAL SURGICAL PATHOLOGY REPORT NAME: LESLI ROSALES .O.B.: 1940 77 Y F BILLING NO.: [id number]: [address] 02 PROCEDURE 06/28/2017 DATE:SURGEON: JANICE NARAYAN M.D. RECEIVED 06/28/2017 DATE:ATTENDING: JANICE NARAYAN M.D. REPORT DATE: 06/29/2017 COPIES TO: DIA GNOSIS:LUNG RIGHT UPPER LOBE, TRANSBRONCHIAL BIOPSY - NON DIAGNOSTIC LUNGTISSUE WITH NON-SPECIFIC INTERSTITIAL FIBROSIS.Comment: The rare atypical cells seen in touch preparation probablyrepresent reactive pneumocytes.SUPPLEMENTAL REPORT (07-04-17):AFB and GMS stains were performed at the request of Dr. Narayan. Thestains are negative for microorganisms.IA/IA MANUELA PRADO M.D. CL INICAL INFORMATION: Right upper lobe lung noduleSPECIMEN: TRANSBRONCHIAL BIOPSY INTRAOPERATIVE CONSULTATION/FROZEN SECTION DIAGNOSIS:TOUCH PREPARATION:TP 1 - Rare atypical cells. Alok Ashton M.D.GROSS DESCRIPTION:"Right upper lobe transbronchial biopsy"Received in formalin are multiple reddish-erazo tissue fragmentsaggregating to 0.4 x 0.4 cm. The specimen is entirely submitted in asingle cassette. (bits ns, 1) JCK/WSO3Icehxbkvex: The following statement applies to allimmunohistochemistry, in situ hybridization, molecular studies, andimmunofluorescence testing.The use of one or more reagents in the above tests is regulated as ananalyte specific reagent (ASR). These tests were developed and theirperformance characteristics determined by the clinical laboratories [facility]. They have not been cleared by the US Food and DrugAdministration (FDA). The FDA has determined that such clearance orapproval is not necessary.All the above immunostains were performed on paraffin embedded tissue.Appropriate positive and negative controls (where applicable) were runin parallel with the patient's specimen; these controls showed expectedstaining pattern, with acceptable intensity of staining.Immunohistochemic al assays have not been validated on decalcifiedtissues. Results should be interpreted with caution given the raisedpossibility of false negativity on decalcified specimens.Professional Performing Location: [address] [address]. DEPARTMENT OF PATHOLOGY AND LABORATORY MEDICINE [place], [place] [address] Normal [facility] Comment on above: Performed By: #### E SR, ANCA, ARIANE ####[place] [address] Hypersen Pneumon 06-07-2017 A pullulans None Detected Normal None Detected [facility] Comment on above: Result Comment: Test ing includes antibodies directed at Aureobasidium pullulans,Aspergillus fumigatus #1, Aspergillus fumigatus #6, Micropolysporafaeni and Thermoactinomyces vulgaris #1. Asp fumigatus 1 None Detected Normal None Detected [facility] Asp fumigatus 6 None Detected Normal None Detected [facility] M faeni None Detected Normal None Detected [facility] [place] Serum None Detected Normal None Detected [facility] T vulgaris None Detected Normal None Detected [facility] Comment on above: Result Comment: Perf ormed by [facility],[address] [place] [id number] [employer], Kar Torres MD - Lab. Director PF Pulmonary Function Teston 06-07-2017 PF Pulmonary Function Test Patient Name: LESLI ROSALES Pulmonary Function Exam Date/Time 06/06/2017 17:45:44 EDT Exam PF Pulmonary Function Test Ordering Physician SUSHMA VELA ELLEN E Accession Number [id number] Reason For Exam SHORTNESS OF BREATH Report [...] Transcribed Date and Time: 06/07/2017 3:54 Normal [facility] Anti-Nuclear Antibodyon 05-21 ARIANE Pattern See Below Normal [facility] Comment on above: Result Comment: An A nti-mitochondrial antibody is present at a titer of1:160. Performed By: #### E SR, ANCA, ARIANE ####[place] [address] ARIANE Titer See Below Abnormal <1:40 [facility] Comment on above: Performed By: #### E SR, ANCA, ARIANE ####[place] [address] CCP Ab, IgGon 06-04-2017 CCP Ab, IgG 3 Units Normal 0-19 [facility] Comment on above: Result Comment: INTE RPRETIVE INFORMATION: Cyclic Citrullinated Peptide Antibody,IgG19 Units or less ................... Gsolrvxq45-23 Units ........................ Weak Kaqvlquf74-88 Units ........................ Moderate Keleprdq16 Units or greater ................ Strong PositiveAnti-cyclic citrullinated peptide (anti-CCP), IgG antibodies arepresent in about 69-83 percent of patients with rheumatoidarthritis (RA) and have specificities of 93-95 percent. Theseautoantibodies may be present in the preclinical phase of disease,are associated with future RA development, and may predictradiographic joint destruction. Patients with weak positiveresults should be monitored and testing repeated.Performed by [facility],[address] [place] [id number] [employer], Kar Torres MD - Lab. Director ANCAon 06-02-2017 cANCA NOT DETECTED Normal Not-Detect ed [facility] Comment on above: Performed By: #### E SR, ANCA, ARIANE ####[place] [address] [place] [address] pANCA NOT DETECTED Normal Not-Detect ed [facility] Comment on above: Performed By: #### E SR, ANCA, ARIANE ####[address] [place] [address] Sed Rateon 06-01-2017 Sed Rate 1 mm/h Normal 0-20 [facility] Comment on above: Performed By: #### E SR, ANCA, ARIANE ####[place] [address] [place] [address] Gram stain for investigation of transfusion reaction Microscopic observation Gram stain Nom (Unsp spec) [facility] Work Phone: No Panel Information Nasopharyngeal Culture Staphylococcus aureus [facility] Work Phone: Vital Signs Date Time Vital Sign Value Performing Clinician Faci lity 05-19-2025 14:19-0400 Body temperature 98 [degF] Dr. Marty Guthrie MD Work Phone: [facility] 05-19-2025 14:19-0400 Diastolic blood pressure 93 mm[Hg] Dr. Marty Guthrie MD Work Phone: [facility] 05-19-2025 14:19-0400 Heart rate 89 /min Dr. Marty Guthrie MD Work Phone: [facility] 05-19-2025 14:19-0400 Respiratory rate 16 /min Dr. Marty Guthrie MD Work Phone: [facility] 05-19-2025 14:19-0400 Systolic blood pressure 149 mm[Hg] Dr. Marty Guthrie MD Work Phone: [facility] 05-16-2025 13:30-0400 Body temperature 98.5 [degF] Dr. Marty Guthrie MD Work Phone: [facility] 05-16-2025 13:30-0400 Diastolic blood pressure 50 mm[Hg] Dr. Marty Guthrie MD Work Phone: [facility] 05-16-2025 13:30-0400 Heart rate 76 /min Dr. Marty Guthrie MD Work Phone: [facility] 05-16-2025 13:30-0400 Respiratory rate 17 /min Dr. Marty Guthrie MD Work Phone: [facility] 05-16-2025 13:30-0400 SaO2% (BldA) [Mass fraction] 93 % Dr. Marty Guthrie MD Work Phone: [facility] 05-16-2025 13:30-0400 Systolic blood pressure 114 mm[Hg] Dr. Marty Guthrie MD Work Phone: [phone] [place] [address] 05-16-2025 09:13-0400 Body mass index (BMI) [Ratio] 27.6 kg/m2 Dr. Marty Guthrie MD Work Phone: [facility] 05-16-2025 09:13-0400 Body weight 64.[address] Marty Guthrie MD Work Phone: [facility] 05-16-2025 09:00-0400 Inhaled oxygen flow rate 1 L/min Dr. Marty Guthrie MD Work Phone: [facility] 05-06-2025 14:12-0400 Body height 152.[address] Marty Guthrie MD Work Phone: [facility] 05-01-2025 21:55-0400 Inhaled oxygen concentration 21 % Dr. Marty Guthrie MD Work Phone: [facility] 04-29-2025 14:27-0400 Body temperature 97.81 [degF] Domonique Gonzalez MD Work Phone: [facility] 04-29-2025 14:27-0400 Diastolic blood pressure 67 mm[Hg] Domonique Gonzalez MD Work Phone: [facility] 04-29-2025 14:27-0400 Heart rate 72 /min Domonique Gonzalez MD Work Phone: [facility] 04-29-2025 14:27-0400 Respiratory rate 18 /min Domonique Gonzalez MD Work Phone: [facility] 04-29-2025 14:27-0400 SaO2% (BldA) [Mass fraction] 94 % Domonique Gonzalez MD Work Phone: [facility] 04-29-2025 14:27-0400 Systolic blood pressure 100 mm[Hg] Domonique Gonzalez MD Work Phone: [facility] 04-29-2025 06:00-0400 Body mass index (BMI) [Ratio] 27.56 kg/m2 Domonique Gonzalez MD Work Phone: [facility] 04-29-2025 06:00-0400 Body weight 64 kg Domonique Gonzalez MD Work Phone: [facility] 04-23-2025 14:59-0400 Body height 152.4 cm Domonique Gonzalez MD Work Phone: [facility] 04-22-2025 22:47-0400 Body temperature 98.6 [degF] NISA GUTHRIE Work Phone: [facility] 04-22-2025 22:47-0400 Diastolic blood pressure 90 mm[Hg] NISA GUTHRIE Work Phone: [facility] 04-22-2025 22:47-0400 Heart rate 81 /min NISA GUTHRIE Work Phone: [facility] 04-22-2025 22:47-0400 Respiratory rate 17 /min NISA GUTHRIE Work Phone: [facility] 04-22-2025 22:47-0400 SaO2% (BldA) [Mass fraction] 95 % NISA GUTHRIE Work Phone: [facility] 04-22-2025 22:47-0400 Systolic blood pressure 143 mm[Hg] NISA GUTHRIE Work Phone: [facility] 04-22-2025 22:27-0400 Inhaled oxygen flow rate 3 L/min NISA GUTHRIE Work Phone: [facility] 04-22-2025 19:18-0400 Body mass index (BMI) [Ratio] 28 kg/m2 NISA GUTHRIE Work Phone: [facility] 04-22-2025 19:18-0400 Body weight 65.1 kg NISA GUTHRIE Work Phone: [facility] 04-22-2025 18:40-0400 Body height 152.4 cm NISA GUTHRIE Work Phone: [facility] 2025 13:02-0400 Body height 152.4 cm Gagan Vivar MD Work Phone: [facility] 2025 13:02-0400 Body mass index (BMI) [Ratio] 25.29 kg/m2 Gagan Vivar MD Work Phone: [facility] 2025 13:02-0400 Body temperature 98.8 [degF] Gagan Vivar MD Work Phone: [facility] 2025 13:02-0400 Body weight 58.74 kg Gagan Vivar MD Work Phone: [facility] 2025 13:02-0400 Diastolic blood pressure 83 mm[Hg] Gagan Vivar MD Work Phone: [facility] 2025 13:02-0400 Heart rate 61 /min Gagan Vivar MD Work Phone: [facility] 2025 13:02-0400 SaO2% (BldA) [Mass fraction] 93 % Gagan Vivar MD Work Phone: [facility] 2025 13:02-0400 Systolic blood pressure 146 mm[Hg] Gagan Vivar MD Work Phone: [facility] 03-08-2025 11:28-0400 Body temperature 99 [degF] NISA GUTHRIE Work Phone: [facility] 03-08-2025 11:28-0400 Heart rate 65 /min NISA GUTHRIE Work Phone: [facility] 03-08-2025 11:28-0400 Respiratory rate 16 /min NISA GUTHRIE Work Phone: [facility] 03-08-2025 11:28-0400 SaO2% (BldA) [Mass fraction] 95 % NISA GUTHRIE Work Phone: [facility] 02-12-2025 02:12-0400 Body temperature 98.1 [degF] NISA GUTHRIE Work Phone: [facility] 02-12-2025 02:12-0400 Diastolic blood pressure 89 mm[Hg] NISA GUTHRIE Work Phone: [facility] 02-12-2025 02:12-0400 Heart rate 77 /min NISA GUTHRIE Work Phone: [facility] 02-12-2025 02:12-0400 Respiratory rate 16 /min NISA GUTHRIE Work Phone: [facility] 02-12-2025 02:12-0400 SaO2% (BldA) [Mass fraction] 94 % NISA GUTHRIE Work Phone: [facility] 02-12-2025 02:12-0400 Systolic blood pressure 158 mm[Hg] NISA GUTHRIE Work Phone: [facility] 02-11-2025 22:36-0400 Body height 149.86 cm NISA GUTHRIE Work Phone: [facility] 02-11-2025 22:36-0400 Body mass index (BMI) [Ratio] 27.1 kg/m2 NISA GUTHRIE Work Phone: [facility] 02-11-2025 22:36-0400 Body weight 61.1 kg NISA GUTHRIE Work Phone: [facility] 01-23-2025 09:13-0400 Body height 152.4 cm Felecia Mercado SHUTTLE DRIVER - RN HEMODIALYSIS Work Phone: [facility] 01-23-2025 09:13-0400 Body mass index (BMI) [Ratio] 27.34 kg/m2 Felecia Mercado SHUTTLE DRIVER - RN HEMODIALYSIS Work Phone: [facility] 01-23-2025 09:13-0400 Body weight 63.5 kg Felecia Mercado SHUTTLE DRIVER - RN HEMODIALYSIS Work Phone: [facility] 01-23-2025 09:13-0400 Diastolic blood pressure 89 mm[Hg] Felecia Mercado SHUTTLE DRIVER - RN HEMODIALYSIS Work Phone: [facility] 01-23-2025 09:13-0400 Heart rate 70 /min Felecia Mercado SHUTTLE DRIVER - RN HEMODIALYSIS Work Phone: [facility] 01-23-2025 09:13-0400 Systolic blood pressure 146 mm[Hg] Felecia Mercado SHUTTLE DRIVER - RN HEMODIALYSIS Work Phone: [facility] 01-14-2025 10:26-0400 Body height 149.86 cm NISA GUTHRIE Work Phone: [facility] 01-14-2025 10:26-0400 Body mass index (BMI) [Ratio] 28.3 kg/m2 NISA GUTHRIE Work Phone: [facility] 01-14-2025 10:26-0400 Body weight 63.5 kg NISA GUTHRIE Work Phone: [facility] 01-01-2025 13:23-0400 Body temperature 98.4 [degF] NISA GUTHRIE Work Phone: [facility] 01-01-2025 13:23-0400 Diastolic blood pressure 62 mm[Hg] NISA GUTHRIE Work Phone: [facility] 01-01-2025 13:23-0400 Heart rate 75 /min NISA GUTHRIE Work Phone: [facility] 01-01-2025 13:23-0400 Respiratory rate 18 /min NISA GUTHRIE Work Phone: [facility] 01-01-2025 13:23-0400 SaO2% (BldA) [Mass fraction] 96 % NISA GUTHRIE Work Phone: [facility] 01-01-2025 13:23-0400 Systolic blood pressure 118 mm[Hg] NISA GUTHRIE Work Phone: [facility] 01-01-2025 07:35-0400 Inhaled oxygen flow rate 2 L/min NISA GUTHRIE Work Phone: [facility] 01-01-2025 05:07-0400 Body mass index (BMI) [Ratio] 27.8 kg/m2 NISA GUTHRIE Work Phone: [facility] 01-01-2025 05:07-0400 Body weight 64.3 kg NISA GUTHRIE Work Phone: [facility] 12-30-2024 13:17-0400 Body height 151.99 cm NISA GUTHRIE Work Phone: [facility] 12-24-2024 20:00-0400 Diastolic blood pressure 100 mm[Hg] NISA GUTHRIE Work Phone: [facility] 12-24-2024 20:00-0400 Heart rate 57 /min NISA GUTHRIE Work Phone: [facility] 12-24-2024 20:00-0400 Respiratory rate 17 /min NISA GUTHRIE Work Phone: [facility] 12-24-2024 20:00-0400 SaO2% (BldA) [Mass fraction] 97 % NISA GUTHRIE Work Phone: [facility] 12-24-2024 20:00-0400 Systolic blood pressure 139 mm[Hg] NISA GUTHRIE Work Phone: [facility] 12-24-2024 19:00-0400 Body temperature 98.6 [degF] NISA GUTHRIE Work Phone: [facility] 12-24-2024 16:41-0400 Inhaled oxygen flow rate 2 L/min NISA GUTHRIE Work Phone: [facility] 12-24-2024 15:20-0400 Body height 152.4 cm NISA GUTHRIE Work Phone: [facility] 12-24-2024 15:20-0400 Body mass index (BMI) [Ratio] 27.8 kg/m2 NISA GUTHRIE Work Phone: [facility] 12-24-2024 15:20-0400 Body weight 64.6 kg NISA GUTHRIE Work Phone: [facility] 12-09-2024 20:13-0400 Body temperature 98.6 [degF] Hannah Luciano PA-C Work Phone: [facility] 12-09-2024 20:13-0400 Diastolic blood pressure 76 mm[Hg] Hannah Rosszo PA-C Work Phone: [facility] 12-09-2024 20:13-0400 Heart rate 70 /min Hannah Rosszo PA-C Work Phone: [facility] 12-09-2024 20:13-0400 Respiratory rate 17 /min Hannah Rosszo PA-C Work Phone: [facility] 12-09-2024 20:13-0400 SaO2% (BldA) [Mass fraction] 97 % Hannah Luciano PA-C Work Phone: [facility] 12-09-2024 20:13-0400 Systolic blood pressure 132 mm[Hg] Hannah Luciano PA-C Work Phone: [facility] 12-03-2024 21:47-0400 Body temperature 97.59 [degF] Keerthi Bargmann SHUTTLE DRIVER.RN HEMODIALYSIS Work Phone: [facility] 12-03-2024 21:47-0400 Diastolic blood pressure 76 mm[Hg] Keerthi Bargmann SHUTTLE DRIVER.RN HEMODIALYSIS Work Phone: [facility] 12-03-2024 21:47-0400 Heart rate 70 /min Keerthi Bargmann SHUTTLE DRIVER.RN HEMODIALYSIS Work Phone: [facility] 12-03-2024 21:47-0400 Respiratory rate 18 /min Keerthi Bargmann SHUTTLE DRIVER.RN HEMODIALYSIS Work Phone: [facility] 12-03-2024 21:47-0400 SaO2% (BldA) [Mass fraction] 97 % Keerthi Bargmann SHUTTLE DRIVER.RN HEMODIALYSIS Work Phone: [facility] 12-03-2024 21:47-0400 Systolic blood pressure 132 mm[Hg] Keerthi Bargmann SHUTTLE DRIVER.RN HEMODIALYSIS Work Phone: [facility] 11-29-2024 21:14-0400 Body temperature 97.59 [degF] Keerthi Bargmann SHUTTLE DRIVER.RN HEMODIALYSIS Work Phone: [facility] 11-29-2024 21:14-0400 Diastolic blood pressure 76 mm[Hg] Keerthi Bargmann SHUTTLE DRIVER.RN HEMODIALYSIS Work Phone: [facility] 11-29-2024 21:14-0400 Heart rate 70 /min Keerthi Bargmann SHUTTLE DRIVER.RN HEMODIALYSIS Work Phone: [facility] 11-29-2024 21:14-0400 Respiratory rate 18 /min Keerthi Bargmann SHUTTLE DRIVER.RN HEMODIALYSIS Work Phone: [facility] 11-29-2024 21:14-0400 SaO2% (BldA) [Mass fraction] 98 % Keerthi Bargmann SHUTTLE DRIVER.RN HEMODIALYSIS Work Phone: [facility] 11-29-2024 21:14-0400 Systolic blood pressure 132 mm[Hg] Keerthi Cuba APRN.RN HEMODIALYSIS Work Phone: [facility] 11-26-2024 16:48-0400 Body temperature 97.59 [degF] Isaias Keith DO Work Phone: [facility] 11-26-2024 16:48-0400 Diastolic blood pressure 72 mm[Hg] Jean Carlosblaine Keith DO Work Phone: [facility] 11-26-2024 16:48-0400 Heart rate 65 /min Jean Carlosblaine Keith DO Work Phone: [facility] 11-26-2024 16:48-0400 Respiratory rate 22 /min Jean Carlosblaine Keith DO Work Phone: [facility] 11-26-2024 16:48-0400 SaO2% (BldA) [Mass fraction] 98 % Jean Carloswilliamdavid Sagar DO Work Phone: [facility] 11-26-2024 16:48-0400 Systolic blood pressure 113 mm[Hg] Jean Carloswilliamer Sagar DO Work Phone: [facility] 11-24-2024 09:12-0400 Body temperature 98.2 [degF] NISA GUTHRIE Work Phone: [facility] 11-24-2024 09:12-0400 Diastolic blood pressure 66 mm[Hg] NISA GUTHRIE Work Phone: [facility] 11-24-2024 09:12-0400 Heart rate 87 /min NISA GUTHRIE Work Phone: [facility] 11-24-2024 09:12-0400 Inhaled oxygen flow rate 2 L/min NISA GUTHRIE Work Phone: [facility] 11-24-2024 09:12-0400 Respiratory rate 16 /min NISA GUTHRIE Work Phone: [facility] 11-24-2024 09:12-0400 SaO2% (BldA) [Mass fraction] 97 % NISA GUTHRIE Work Phone: [facility] 11-24-2024 09:12-0400 Systolic blood pressure 148 mm[Hg] NISA GUTHRIE Work Phone: [facility] 11-24-2024 04:41-0400 Body mass index (BMI) [Ratio] 33 kg/m2 NISA GUTHRIE Work Phone: [facility] 11-24-2024 04:41-0400 Body weight 76.8 kg NISA GUTHRIE Work Phone: [facility] 11-21-2024 14:17-0400 Body height 152.4 cm NISA GUTHRIE Work Phone: [facility] 11-17-2024 16:59-0400 Body temperature 98.8 [degF] NISA GUTHRIE Work Phone: [facility] 11-17-2024 16:59-0400 Diastolic blood pressure 88 mm[Hg] NISA GUTHRIE Work Phone: [facility] 11-17-2024 16:59-0400 Heart rate 68 /min NISA GUTHRIE Work Phone: [facility] 11-17-2024 16:59-0400 Inhaled oxygen flow rate 3 L/min NISA GUTHRIE Work Phone: [facility] 11-17-2024 16:59-0400 Respiratory rate 11 /min INSA GUTHRIE Work Phone: [facility] 11-17-2024 16:59-0400 SaO2% (BldA) [Mass fraction] 95 % NISA GUTHRIE Work Phone: [facility] 11-17-2024 16:59-0400 Systolic blood pressure 104 mm[Hg] NISA GUTHRIE Work Phone: [facility] 11-17-2024 12:42-0400 Body height 152.4 cm NISA GUTHRIE Work Phone: [facility] 11-17-2024 12:42-0400 Body mass index (BMI) [Ratio] 30 kg/m2 NISA GUTHRIE Work Phone: [facility] 11-17-2024 12:42-0400 Body weight 69.8 kg NISA GUTHRIE Work Phone: [facility] 09-12-2024 11:12-0500 Body mass index (BMI) [Ratio] 30.6 kg/m2 Keely Givens MD Work Phone: [facility] 09-12-2024 11:12-0500 Body weight 72.58 kg Keely Givens MD Work Phone: [facility] 09-12-2024 11:12-0500 Diastolic blood pressure 84 mm[Hg] Keely Givens MD Work Phone: [facility] 09-12-2024 11:12-0500 Heart rate 104 /min Keely Givens MD Work Phone: [facility] 09-12-2024 11:12-0500 Respiratory rate 18 /min Keely Givens MD Work Phone: [facility] 09-12-2024 11:12-0500 SaO2% (BldA) [Mass fraction] 91 % Keely Givens MD Work Phone: [facility] 09-12-2024 11:12-0500 Systolic blood pressure 122 mm[Hg] Keely Givens MD Work Phone: [facility] 07-10-2024 10:00-0500 Body height 154 cm Ana Meza APRN.RN HEMODIALYSIS Work Phone: [facility] 07-10-2024 10:00-0500 Body mass index (BMI) [Ratio] 30.78 kg/m2 Ana Meza APRN.RN HEMODIALYSIS Work Phone: [facility] 07-10-2024 10:00-0500 Body weight 73 kg Ana Meza SHUTTLE DRIVER.RN HEMODIALYSIS Work Phone: [facility] 07-10-2024 10:00-0500 Diastolic blood pressure 88 mm[Hg] Ana Meza SHUTTLE DRIVER.RN HEMODIALYSIS Work Phone: [facility] 07-10-2024 10:00-0500 Heart rate 69 /min Ana Meza SHUTTLE DRIVER.RN HEMODIALYSIS Work Phone: [facility] 07-10-2024 10:00-0500 Systolic blood pressure 145 mm[Hg] Ana Meza SHUTTLE DRIVER.RN HEMODIALYSIS Work Phone: [facility] 06-07-2024 18:20-0400 Body height 152.4 cm Nieves Borja MD Work Phone: [employer] 06-07-2024 18:20-0400 Body mass index (BMI) [Ratio] 31.25 kg/m2 Nieves Borja MD Work Phone: [employer] 06-07-2024 18:20-0400 Body temperature 97.5 [degF] Nieves Borja MD Work Phone: [employer] 06-07-2024 18:20-0400 Body weight 72.58 kg Nieves Borja MD Work Phone: [employer] 06-07-2024 18:20-0400 Diastolic blood pressure 88 mm[Hg] Nieves Borja MD Work Phone: [employer] 06-07-2024 18:20-0400 Heart rate 83 /min Nieves Borja MD Work Phone: [employer] 06-07-2024 18:20-0400 Respiratory rate 18 /min Nieves Borja MD Work Phone: [employer] 06-07-2024 18:20-0400 SaO2% (BldA) [Mass fraction] 94 % Nieves Borja MD Work Phone: [employer] 06-07-2024 18:20-0400 Systolic blood pressure 150 mm[Hg] Nieves Borja MD Work Phone: [facility] 05-29-2024 10:55-0400 Body height 154 cm Giselle Elizondo MD Work Phone: [facility] 05-29-2024 10:55-0400 Body mass index (BMI) [Ratio] 31.62 kg/m2 Giselle Elizondo MD Work Phone: [facility] 05-29-2024 10:55-0400 Body weight 75 kg Giselle Elizondo MD Work Phone: [facility] 05-29-2024 10:55-0400 Diastolic blood pressure 85 mm[Hg] Giselle Elizondo MD Work Phone: [facility] 05-29-2024 10:55-0400 Heart rate 62 /min Giselle Elizondo MD Work Phone: [facility] 05-29-2024 10:55-0400 SaO2% (BldA) [Mass fraction] 93 % Giselle Elizondo MD Work Phone: [facility] 05-29-2024 10:55-0400 Systolic blood pressure 157 mm[Hg] Giselle Elizondo MD Work Phone: [facility] 04-29-2024 10:42-0400 Body height 154 cm Keely Givens MD Work Phone: [facility] 04-29-2024 10:42-0400 Body mass index (BMI) [Ratio] 31.71 kg/m2 Keely Givens MD Work Phone: [facility] 04-29-2024 10:42-0400 Body weight 75.21 kg Keely Givens MD Work Phone: [facility] 04-29-2024 10:42-0400 Diastolic blood pressure 90 mm[Hg] Keely Givens MD Work Phone: [facility] 04-29-2024 10:42-0400 Heart rate 57 /min Keely Givens MD Work Phone: [facility] 04-29-2024 10:42-0400 SaO2% (BldA) [Mass fraction] 92 % Keely Givens MD Work Phone: [facility] 04-29-2024 10:42-0400 Systolic blood pressure 138 mm[Hg] Keely Givens MD Work Phone: [facility] 01-17-2024 13:36-0400 Body height 154 cm Giselle Elizondo MD Work Phone: [facility] 01-17-2024 13:36-0400 Body mass index (BMI) [Ratio] 31.62 kg/m2 Giselle Elizondo MD Work Phone: [facility] 01-17-2024 13:36-0400 Body weight 75 kg Giselle Elizondo MD Work Phone: [facility] 01-17-2024 13:36-0400 Diastolic blood pressure 85 mm[Hg] Giselle Elizondo MD Work Phone: [facility] 01-17-2024 13:36-0400 Heart rate 60 /min Giselle Elizondo MD Work Phone: [facility] 01-17-2024 13:36-0400 SaO2% (BldA) [Mass fraction] 100 % Giselle Elizondo MD Work Phone: [facility] 01-17-2024 13:36-0400 Systolic blood pressure 143 mm[Hg] Giselle Elizondo MD Work Phone: [facility] 12-28-2023 10:31-0400 Body mass index (BMI) [Ratio] 30.41 kg/m2 Keely Givens MD Work Phone: [facility] 12-28-2023 10:31-0400 Body weight 72.12 kg Keely Givens MD Work Phone: [facility] 11-26-2023 14:50-0400 Body temperature 97.39 [degF] Eula Moomaw SHUTTLE DRIVER.RN HEMODIALYSIS Work Phone: [facility] 11-26-2023 14:50-0400 Body weight 74.1 kg Eula Moomaw SHUTTLE DRIVER.RN HEMODIALYSIS Work Phone: [facility] 11-26-2023 14:50-0400 Diastolic blood pressure 97 mm[Hg] Eula Moomaw SHUTTLE DRIVER.RN HEMODIALYSIS Work Phone: [facility] 11-26-2023 14:50-0400 Heart rate 86 /min Eula Moomaw SHUTTLE DRIVER.RN HEMODIALYSIS Work Phone: [facility] 11-26-2023 14:50-0400 SaO2% (BldA) [Mass fraction] 92 % Eula Moomaw SHUTTLE DRIVER.RN HEMODIALYSIS Work Phone: [facility] 11-26-2023 14:50-0400 Systolic blood pressure 141 mm[Hg] Eula Moomaw SHUTTLE DRIVER.RN HEMODIALYSIS Work Phone: [facility] 09-28-2023 13:03-0500 Body height 154 cm Giselle Elizondo MD Work Phone: [facility] 09-28-2023 13:03-0500 Body weight 74 kg Giselle Elizondo MD Work Phone: [facility] 09-28-2023 13:03-0500 Diastolic blood pressure 79 mm[Hg] Giselle Elizondo MD Work Phone: [facility] 09-28-2023 13:03-0500 Heart rate 65 /min Giselle Elizondo MD Work Phone: [facility] 09-28-2023 13:03-0500 SaO2% (BldA) [Mass fraction] 95 % Giselle Elizondo MD Work Phone: [facility] 09-28-2023 13:03-0500 Systolic blood pressure 136 mm[Hg] Giselle Elizondo MD Work Phone: [facility] 06-16-2023 15:03-0400 Body weight 74.39 kg Keely Givens MD Work Phone: [facility] 06-16-2023 15:03-0400 Diastolic blood pressure 82 mm[Hg] Keely Givens MD Work Phone: [facility] 06-16-2023 15:03-0400 Heart rate 67 /min Keely Givens MD Work Phone: [facility] 06-16-2023 15:03-0400 Respiratory rate 16 /min Keely Givens MD Work Phone: [facility] 06-16-2023 15:03-0400 SaO2% (BldA) [Mass fraction] 92 % Keely Givens MD Work Phone: [facility] 06-16-2023 15:03-0400 Systolic blood pressure 138 mm[Hg] Keely Givens MD Work Phone: [facility] 06-16-2023 14:59-0400 Body height 154 cm Pulm Wstr Work Phone: [facility] 06-16-2023 14:59-0400 Body weight 74.48 kg Pulm Wstr Work Phone: [facility] 06-16-2023 14:59-0400 Heart rate 67 /min Pulm Wstr Work Phone: [facility] 06-16-2023 14:59-0400 Respiratory rate 16 /min Pulm Wstr Work Phone: [facility] 06-16-2023 14:59-0400 SaO2% (BldA) [Mass fraction] 92 % Pulm Wstr Work Phone: [facility] 05-22-2023 11:31-0400 Body height 154.9 cm Fernanda Kalka PA-C Work Phone: [facility] 05-22-2023 11:31-0400 Diastolic blood pressure 80 mm[Hg] Fernanda Kalka PA-C Work Phone: [facility] 05-22-2023 11:31-0400 Heart rate 70 /min Fernanda Kalka PA-C Work Phone: [facility] 05-22-2023 11:31-0400 Systolic blood pressure 132 mm[Hg] Fernanda Kalka PA-C Work Phone: [facility] 11-28-2022 10:50-0400 Body height 154.9 cm Giselle Elizondo MD Work Phone: [facility] 11-28-2022 10:50-0400 Body weight 80.29 kg Giselle Elizondo MD Work Phone: [facility] 11-28-2022 10:50-0400 Diastolic blood pressure 68 mm[Hg] Giselle Elizondo MD Work Phone: [facility] 11-28-2022 10:50-0400 Heart rate 68 /min Giselle Elizondo MD Work Phone: [facility] 11-28-2022 10:50-0400 SaO2% (BldA) [Mass fraction] 92 % Giselle Elizondo MD Work Phone: [facility] 11-28-2022 10:50-0400 Systolic blood pressure 129 mm[Hg] Giselle Elizondo MD Work Phone: [facility] 10-27-2022 15:47-0500 Body height 154.9 cm Miguel Ángel Rea MD Work Phone: [facility] [employer] 10-27-2022 15:47-0500 Body mass index (BMI) [Ratio] 34.01 kg/m2 Miguel Ángel Rea MD Work Phone: [facility] [employer] 10-27-2022 15:47-0500 Body temperature 97.11 [degF] Miguel Ángel Rea MD Work Phone: [employer] [facility] 10-27-2022 15:47-0500 Body weight 81.65 kg Miguel Ángel Rea MD Work Phone: [employer] [facility] 10-27-2022 15:47-0500 Diastolic blood pressure 79 mm[Hg] Miguel Ángel Rea MD Work Phone: [employer] [facility] 10-27-2022 15:47-0500 Heart rate 68 /min Miguel Ángel Rea MD Work Phone: [employer] [facility] 10-27-2022 15:47-0500 Systolic blood pressure 132 mm[Hg] Miguel Ángel Rea MD Work Phone: [facility] 07-11-2022 15:33-0500 Body height 154.9 cm Allyson Maradiaga SHUTTLE DRIVER.RN HEMODIALYSIS Work Phone: [facility] 07-11-2022 15:33-0500 Body temperature 98.1 [degF] Allyson Maradiaga SHUTTLE DRIVER.RN HEMODIALYSIS Work Phone: [facility] 07-11-2022 15:33-0500 Body weight 83.01 kg Allyson Maradiaga SHUTTLE DRIVER.RN HEMODIALYSIS Work Phone: [facility] 07-11-2022 15:33-0500 Diastolic blood pressure 79 mm[Hg] Allyson Maradiaga SHUTTLE DRIVER.RN HEMODIALYSIS Work Phone: [facility] 07-11-2022 15:33-0500 Heart rate 66 /min Allyson Maradiaga SHUTTLE DRIVER.RN HEMODIALYSIS Work Phone: [facility] 07-11-2022 15:33-0500 Respiratory rate 16 /min Allyson Maradiaga SHUTTLE DRIVER.RN HEMODIALYSIS Work Phone: [facility] 07-11-2022 15:33-0500 SaO2% (BldA) [Mass fraction] 91 % Allyson Maradiaga SHUTTLE DRIVER.RN HEMODIALYSIS Work Phone: [facility] 07-11-2022 15:33-0500 Systolic blood pressure 155 mm[Hg] Allyson Maradiaga SHUTTLE DRIVER.RN HEMODIALYSIS Work Phone: [facility] 07-05-2022 10:00-0500 Body height 154.9 cm Giselle Elizondo MD Work Phone: [facility] 07-05-2022 10:00-0500 Body weight 83.46 kg Giselle Elizondo MD Work Phone: [facility] 07-05-2022 10:00-0500 Diastolic blood pressure 85 mm[Hg] Giselle Elizondo MD Work Phone: [facility] 07-05-2022 10:00-0500 Heart rate 61 /min Giselle Elizondo MD Work Phone: [facility] 07-05-2022 10:00-0500 Systolic blood pressure 126 mm[Hg] Giselle Elizondo MD Work Phone: [facility] 11-06-2021 08:38-0400 Heart rate 73 /min DR MALCOM GIRON MD [facility] 11-06-2021 08:32-0400 Body temperature 98.96 [degF] DR MALCOM GIRON MD [facility] 11-06-2021 08:32-0400 Diastolic blood pressure 62 mm[Hg] DR MALCOM GIRON MD [facility] 11-06-2021 08:32-0400 Heart rate 73 /min DR MALCOM GIRON MD [facility] 11-06-2021 08:32-0400 Systolic blood pressure 116 mm[Hg] DR MALCOM GIRON MD [facility] 11-06-2021 04:50-0400 Body temperature 97.52 [degF] DR MALCOM GIRON MD [facility] 11-06-2021 04:50-0400 Diastolic blood pressure 73 mm[Hg] DR MALCOM GIRON MD [facility] 11-06-2021 04:50-0400 Heart rate 68 /min DR MALCOM GIRON MD [facility] 11-06-2021 04:50-0400 Respiratory rate 20 /min DR MALCOM GIRON MD [facility] 11-06-2021 04:50-0400 Systolic blood pressure 10 mm[Hg] DR MALCOM GIRON MD [facility] 11-05-2021 23:30-0400 Body temperature 98.6 [degF] DR MALCOM GIRON MD [facility] 11-05-2021 23:30-0400 Diastolic blood pressure 52 mm[Hg] DR MALCOM GIRON MD [facility] 11-05-2021 23:30-0400 Heart rate 65 /min DR MALCOM GIRON MD [facility] 11-05-2021 23:30-0400 Respiratory rate 20 /min DR MALCOM GIRON MD [facility] 11-05-2021 23:30-0400 Systolic blood pressure 89 mm[Hg] DR MALCOM GIRON MD [facility] 11-05-2021 19:18-0400 Diastolic Blood Pressure NBP [address] MALCOM GIRON MD [facility] 11-05-2021 19:18-0400 Heart rate 73 /min DR MALCOM GIRON MD [facility] 11-05-2021 19:18-0400 Reason For Taking VItal Signs DR MALCOM GIRON MD [facility] 11-05-2021 19:18-0400 Respiratory rate 18 /min DR MALCOM GIRON MD [facility] 11-05-2021 19:18-0400 Systolic Blood Pressure NBP [address] MALCOM GIRON MD [facility] 11-05-2021 17:08-0400 Body height [address] MALCOM GIRON MD [facility] 11-05-2021 17:08-0400 Body weight 84.[address] MALCOM GIRON MD [facility] 11-05-2021 17:08-0400 Body weight 35.13 kg/m2 DR MALCOM GIRON MD [facility] 11-05-2021 16:54-0400 Body temperature 97.7 [degF] DR MALCOM GIRON MD [facility] 11-05-2021 16:54-0400 Diastolic Blood Pressure NBP [address] MALCOM GIRON MD [facility] 11-05-2021 16:54-0400 Heart rate 66 /min DR MALCOM GIRON MD [facility] 11-05-2021 16:54-0400 Reason For Taking VItal Signs DR MALCOM GIRON MD [facility] 11-05-2021 16:54-0400 Systolic Blood Pressure NBP [address] MALCOM GIRON MD [facility] 11-05-2021 16:00-0400 Body temperature 97.34 [degF] DR MALCOM GIRON MD [facility] 11-05-2021 16:00-0400 Diastolic Blood Pressure NBP [address] MALCOM GIRON MD [facility] 11-05-2021 16:00-0400 Systolic Blood Pressure NBP [address] MALCOM GIRON MD [facility] 11-05-2021 15:07-0400 Body temperature 96.98 [degF] DR MALCOM GIRON MD [facility] 11-05-2021 14:45-0400 Body temperature 97.7 [degF] DR MALCOM GIRON MD [facility] 11-05-2021 14:30-0400 Body temperature 97.7 [degF] DR MALCOM GIRON MD [facility] 11-05-2021 14:15-0400 Body temperature 97.7 [degF] DR MALCOM GIRON MD [facility] 11-05-2021 11:21-0400 Body height [address] MALCOM GIRON MD [facility] 11-05-2021 11:21-0400 Body weight 84.[address] MALCOM GIRON MD [facility] 11-03-2021 11:10-0400 Heart rate 76 /min RUBY BAPTISTEUBBLEFIELD SHUTTLE DRIVER-RN HEMODIALYSIS [facility] 11-03-2021 11:10-0400 Respiratory rate 16 /min RUBY BAPTISTEUBBLEFIELD SHUTTLE DRIVER-RN HEMODIALYSIS [facility] 11-03-2021 09:15-0400 Body temperature 97.34 [degF] RUBY BAPTISTEUBBLEFIELD SHUTTLE DRIVER-RN HEMODIALYSIS [facility] 11-03-2021 09:15-0400 Diastolic blood pressure 59 mm[Hg] RUBY HENRYBLEFIELD SHUTTLE DRIVER-RN HEMODIALYSIS [facility] 11-03-2021 09:15-0400 Heart rate 73 /min [facility] SHUTTLE DRIVER-RN HEMODIALYSIS [facility] 11-03-2021 09:15-0400 Reason For Taking VItal Signs [facility] [place] SHUTTLE DRIVER-RN HEMODIALYSIS [facility] 11-03-2021 09:15-0400 Respiratory rate 18 /min [facility]BY [facility] SHUTTLE DRIVER-RN HEMODIALYSIS [facility] 11-03-2021 09:15-0400 Systolic blood pressure 123 mm[Hg] [facility]BY [place] SHUTTLE DRIVER-RN HEMODIALYSIS [facility] 11-03-2021 08:59-0400 Heart rate 76 /min [facility] [place] SHUTTLE DRIVER-RN HEMODIALYSIS [facility] 11-03-2021 08:59-0400 Respiratory rate 16 /min [facility] [place] SHUTTLE DRIVER-RN HEMODIALYSIS [facility] 11-03-2021 08:58-0400 Heart rate 64 /min [facility] [place] SHUTTLE DRIVER-RN HEMODIALYSIS [facility] 11-03-2021 05:59-0400 Heart rate 74 /min [facility] [place] SHUTTLE DRIVER-RN HEMODIALYSIS [facility] 11-02-2021 22:51-0400 Body temperature 98.78 [degF] [facility] [place] SHUTTLE DRIVER-RN HEMODIALYSIS [facility] 11-02-2021 22:51-0400 Diastolic blood pressure 89 mm[Hg] [facility] [place] SHUTTLE DRIVER-RN HEMODIALYSIS [facility] 11-02-2021 22:51-0400 Heart rate 104 /min [facility] [place] SHUTTLE DRIVER-RN HEMODIALYSIS [facility] 11-02-2021 22:51-0400 Reason For Taking VItal Signs [facility] [place] SHUTTLE DRIVER-RN HEMODIALYSIS [facility] 11-02-2021 22:51-0400 Systolic blood pressure 141 mm[Hg] [facility] [place] SHUTTLE DRIVER-RN HEMODIALYSIS [facility] 11-02-2021 18:34-0400 Heart rate 70 /min [facility] [place] SHUTTLE DRIVER-RN HEMODIALYSIS [facility] 11-02-2021 15:53-0400 Body temperature 97.88 [degF] [facility] [place] SHUTTLE DRIVER-RN HEMODIALYSIS [facility] 11-02-2021 15:53-0400 Diastolic blood pressure 76 mm[Hg] [facility] [place] SHUTTLE DRIVER-RN HEMODIALYSIS [facility] 11-02-2021 15:53-0400 Reason For Taking VItal Signs [facility] [place] SHUTTLE DRIVER-RN HEMODIALYSIS [facility] 11-02-2021 15:53-0400 Systolic blood pressure 128 mm[Hg] RUBY [facility] SHUTTLE DRIVER-RN HEMODIALYSIS [facility] 11-02-2021 13:00-0400 Body weight 35.13 kg/m2 [facility]BYRAVIN[facility]A [facility] SHUTTLE DRIVER-RN HEMODIALYSIS [facility] 11-02-2021 10:52-0400 diastolic 87 mm[Hg] RUBY CYNTHIA SHUTTLE DRIVER-RN HEMODIALYSIS [facility] 11-02-2021 10:52-0400 systolic 152 mm[Hg] [facility]EMODIALYSIS [facility] 11-02-2021 10:24-0400 diastolic 87 mm[Hg] [facility] SHUT[facility]-RN HEMODIALYSIS [facility] 11-02-2021 10:24-0400 Heart rate 67 /min [facility] SHUTTLE DRIVER-RN HEMODIALYSIS [facility] 11-02-2021 10:24-0400 systolic 154 mm[Hg] [facility] SHUT[facility]-RN HEMODIALYSIS [facility] 11-02-2021 10:11-0400 diastolic 90 mm[Hg] [facility] SHUTTLE DRIVER-RN HEMODIALYSIS [facility] 11-02-2021 10:11-0400 Heart rate 74 /min [facility] SHUTTLE [facility]-RN HEMODIALYSIS [facility] 11-02-2021 10:11-0400 systolic 159 mm[Hg] [facility] SHUTTLE DRIVER-RN HEMODIALYSIS [facility] 11-02-2021 09:31-0400 Body height 155 cm [facility] SHUTTLE DRIVER-RN HEMODIALYSIS [facility] 11-02-2021 09:31-0400 Body temperature 98.6 [degF] [facility] [place] SHUTTLE DRIVER-RN HEMODIALYSIS [facility] 11-02-2021 09:31-0400 Body weight 84.4 kg RUBY [facility] SHUTTLE DRIVER-RN HEMODIALYSIS [facility] 09-03-2021 11:22-0500 Body height [address] MALCOM GIRON MD [facility] 09-03-2021 11:22-0500 Body weight 84.[address] MALCOM GIRON MD [facility] 09-03-2021 11:22-0500 Body weight 36.05 kg/m2 DR MALCOM GIRON MD [facility] 09-03-2021 11:22-0500 diastolic 100 mm[Hg] DR MALCOM GIRON MD [facility] 09-03-2021 11:22-0500 Heart rate 63 /min DR MALCOM GIRON MD [facility] 09-03-2021 11:22-0500 Respiratory rate 20 /min DR MALCOM GIRON MD [facility] 09-03-2021 11:22-0500 systolic 172 mm[Hg] DR MALCOM GIRON MD [facility] 04-24-2020 14:27-0400 BMI (Body Mass Index) 37.11 kg/m2 Luke Williamson [facility] [place] [place] 04-24-2020 14:27-0400 Body weight 86.18 kg Luke Ireland [facility] , [place] 04-24-2020 14:27-0400 Height [facility].4 cm [facility] [place] 04-24-2020 14:15-0400 Body Temperature 98.91 [degF] [facility] [place] 04-24-2020 14:15-0400 BP Diastolic 87 mm[Hg] [facility] , [place] 04-24-2020 14:15-0400 BP Systolic 147 mm[Hg] [facility] , [place] 04-24-2020 14:15-0400 Pulse (Heart Rate) 63 /min [facility], [place] 04-24-2020 14:15-0400 Pulse Oximetry 92 % [facility] , [place] 04-24-2020 14:15-0400 Respiratory Rate 16 /min [facility], [place] Encounters Encounter Date Encounter Type Care Provider Facility Start: 06-29-2025 End: 06-29-2025 ambulatory Wilder Gabriel NP Facility[facility] Start: 06-16-2025 End: 06-16-2025 ambulatory Jack Plasencia Facility:[facility] Start: 05-26-2025 ambulatory [facility] Start: 05-21-2025 ambulatory [facility] Start: 05-21-2025 Non-patient / Non-visit Dr. Jack walsh MD -[facility] Start: 05-19-2025 End: 05-20-[address] Jack Plasencia MD -Wound Healing [facility] Work Phone: Start: 05-19-2025 End: 05-20-[address] Marty Guthrie MD Work Phone: [facility] Start: 05-16-2025 End: 05-22-2025 Telephone encounter Wili Molina [facility] Start: 05-15-2025 Non-patient / Non-visit Dr. Haylee Son [facility] Work Phone: Start: 05-14-2025 End: 06-18-2025 Telephone encounter Anuj Ramos MD Work Phone: [facility] Clinical Communication Comment on above: Appointment Request (Hospital f/u) Start: 05-14-2025 Non-patient / Non-visit Dr. Haylee Son [facility] Work Phone: Start: 05-13-2025 Non-patient / Non-visit Triny Brewer -[facility] Start: 05-13-2025 Non-patient / Non-visit Dr. Haylee Son [facility] Work Phone: Start: 05-12-2025 Non-patient / Non-visit Dr. Haylee Son [facility] Work Phone: Start: 05-09-2025 Non-patient / Non-visit Dr. Haylee Son [facility] Work Phone: Start: 05-08-2025 Non-patient / Non-visit Dr. Haylee Son [facility] Work Phone: Start: 05-06-2025 End: 05-13-2025 Telephone encounter Amanda Lugo PharmD [facility] Osteoporosis [facility] Comment on above: Med Management Start: 05-06-2025 Non-patient / Non-visit Triny Hernandez A -[facility] Start: 05-06-2025 Non-patient / Non-visit Dr. Haylee Son [facility] Work Phone: Start: 05-05-2025 Non-patient / Non-visit Dr. Haylee Son DO [facility] Inpatient Rehab Work Phone: Start: 05-02-2025 Non-patient / Non-visit Triny Hernandez A -[facility] Start: 05-02-2025 Non-patient / Non-visit Dr. Haylee Son DO [facility] Inpatient Rehab Work Phone: Start: 05-01-2025 Non-patient / Non-visit Triny Brewer -[facility] Start: 05-01-2025 Non-patient / Non-visit Dr. Haylee Son DO [facility] Inpatient Rehab Work Phone: Start: 04-30-2025 Non-patient / Non-visit Dr. Haylee Son DO [facility] Inpatient [facility] Work Phone: Start: 04-29-2025 ambulatory Jack Luis Angel [facility] [place] Start: 04-29-2025 End: 05-16-2025 Evaluation and management of inpatient Dr. Keerthi Son DO -Rehab Unit Work Phone: Start: 04-25-2025 End: 04-28-2025 Telephone encounter Alicia Arredondo DO Work Phone: [facility] Urology - [place] Start: 04-22-2025 End: 04-29-2025 Evaluation and management of inpatient Domonique Gonzalez MD Work Phone: [facility] Trauma Neuro Progressive Care Unit PCU 3W Comment on above: Acute subdural hemat coco (HCC) (Primary Dx); Fall, initial encounter; Closed fracture of multiple ribs of left side with routine healing; Hematoma; Chronic systolic (congestive) heart failure (HCC); Paroxysmal atrial fibrillation (HCC) Start: 04-22-2025 End: 04-22-2025 Emergency department patient visit NISA GUTHRIE Work Phone: -Emergency Department Work Phone: Start: 04-03-2025 End: 04-03-2025 Orders Only Felecia Mercado APRN - RN HEMODIALYSIS Work Phone: [facility] Osteoporosis [facility] Comment on above: Age-related osteopor osis without current pathological fracture (Primary Dx); History of fragility fracture; Fracture Risk Assessment Score (FRAX) indicating greater than 20% risk for major osteoporosis-related fracture; Fracture Risk Assessment Score (FRAX) indicating greater than 3% risk for hip fracture; Postmenopausal Start: 2025 End: 2025 Patient encounter procedure Gagan Vivar MD Work Phone: Hematology/Oncology Start: 2025 End: 2025 ambulatory Gagan Vivar MD Work Phone: Hematology/Oncology Comment on above: Monoclonal gammopath y (Primary Dx) Start: 03-28-2025 End: 04-02-2025 Telephone encounter Felecia SolizMorris Mercado SHUTTLE DRIVER - RN HEMODIALYSIS Work Phone: [facility] Clinical Communication Comment on above: Other (DEXA bone den sity results) Start: 03-25-2025 End: 03-25-2025 Refill Giselle Elizondo MD Work Phone: [facility] Comment on above: Refill Request Start: 03-20-2025 End: 03-20-2025 Subsequent hospital visit by physician Marty Guthrie MD Work Phone: [facility] Comment on above: Asymptomatic menopau partha state Start: 03-20-2025 End: 03-20-2025 ambulatory MARTY GUTHRIE [facility] Start: 03-13-2025 End: 03-13-[address] Mike Malagon MD -[facility] Work Phone: Start: 03-13-2025 End: 03-13-2025 Dr. Brendan Mclain MD -[facility] Start: 03-13-2025 End: 03-13-2025 ambulatory NISA GUTHRIE Work Phone: -[facility] Start: 03-08-2025 End: 03-08-2025 Patient encounter procedure María Wasserman NP-C [facility] Work Phone: Start: 03-08-2025 End: 03-08-2025 María Wasserman LITHOGRAPHING MACHINE OPERATOR-C -[facility] Work Phone: Start: 03-08-2025 End: 03-08-2025 ambulatory NISA GUTHRIE Work Phone: [facility] Start: 03-08-2025 End: 03-08-2025 ambulatory NISA GUTHRIE Work Phone: -Laboratory Specimen Start: 03-08-2025 End: 03-08-2025 Patient encounter procedure María Wasserman LITHOGRAPHING MACHINE OPERATOR-C -[facility] Specimen Work Phone: Start: 03-08-2025 End: 03-08-2025 María Wasserman LITHOGRAPHING MACHINE OPERATOR-C -Laboratory Specimen Work Phone: Start: 03-08-2025 End: 03-08-2025 ambulatory Marty [place] Facility:[facility] Start: 03-07-2025 End: 03-07-2025 Telephone encounter Marty Guthrie MD Work Phone: [facility] Clinical Communication Comment on above: Other (/); Blood Pre ssure Check Start: 02-21-2025 End: 02-24-2025 Refill Ana Meza APRN.RN HEMODIALYSIS Work Phone: [facility] Comment on above: Refill Request Start: 02-14-2025 End: 02-17-2025 Refill Ana Meza SHUTTLE DRIVER.RN HEMODIALYSIS Work Phone: [facility] Comment on above: Refill Request Start: 02-11-2025 End: 02-12-2025 Dr. Lucas Wong DO -Emergency Departia nt Work Phone: Start: 02-11-2025 End: 02-12-2025 Emergency department patient visit NISA GUTHRIE Work Phone: -Emergency Department Work Phone: Start: 01-31-2025 End: 01-31-2025 Telephone encounter Marty Guthrie MD Work Phone: [facility] Clinical Communication Comment on above: Home Visit Start: 01-23-2025 End: 01-23-2025 Office outpatient new 30 minutes Felecia Mercado SHUTTLE DRIVER - RN HEMODIALYSIS Work Phone: [facility] Osteoporosis Clinic [facility] Comment on above: Age-related osteopor osis without current pathological fracture (Primary Dx); Postmenopausal; History of fragility fracture; Fracture Risk Assessment Score (FRAX) indicating greater than 20% risk for major osteoporosis-related fracture; Fracture Risk Assessment Score (FRAX) indicating greater than 3% risk for hip fracture Start: 01-23-2025 End: 01-23-2025 ambulatory FELECIA MERCADO [facility] Start: 01-14-2025 End: 01-14-[address] Brendan Mclain MD -[facility] Start: 01-14-2025 End: 01-14-2025 Aleksandra COLEMAN [facility] Work Phone: Start: 01-14-2025 End: 01-14-2025 ambulatory NISA GUTHRIE Work Phone: [facility] Work Phone: Start: 01-01-2025 Non-patient / Non-visit Dr. Haylee Vega [facility] Work Phone: Start: 01-01-2025 Dr. Goldy [facility] Work Phone: Start: 12-31-2024 Non-patient / Non-visit Dr. Haylee Vega [facility] Work Phone: Start: 12-31-2024 Dr. Goldy eVga [facility] Work Phone: Start: 12-31-2024 End: 12-31-2024 Telephone encounter Marty Guthrie MD Work Phone: [facility] Comment on above: Home Care ( to lexi jackson) Start: 12-31-2024 Non-patient / Non-visit Aleksandra DON Start: 12-31-2024 Aleksandra Fajardo Start: 12-30-2024 Non-patient / Non-visit Dr. Haylee [facility] Work Phone: Start: 12-30-2024 Dr. Goldy [facility] Work Phone: Start: 12-30-2024 Non-patient / [facility] Start: 12-30-2024 Dr. Mike Malagon MD [facility] Start: 12-29-2024 Non-patient / Non-visit Dr. Sveta Macias [facility] Inpatient Physicians Work Phone: Start: 12-29-2024 Dr. Sveta Macias [facility] Inpatient Physicians Work Phone: Start: 12-28-2024 Non-patient / Non-visit Dr. Sveta Macias [facility] Inpatient Physicians Work Phone: Start: 12-28-2024 Dr. Sveta Macias [facility] Inpatient Physicians Work Phone: Start: 12-27-2024 Non-patient / Non-visit [facility] Start: 12-27-2024 Amairani Choudhary [facility] Start: 12-27-2024 Non-patient / Non-visit Dr. Sveta Macias [facility] Inpatient Physicians Work Phone: Start: 12-27-2024 Dr. Sveta Macias [facility] Inpatient Physicians Work Phone: Start: 12-26-2024 Non-patient / Non-[facility] Start: 12-26-2024 Dr. Mike Malagon MD [facility] Start: 12-26-2024 Non-patient / Non-visit Dr. Sveta Macias [facility] Inpatient Physicians Work Phone: Start: 12-26-2024 Dr. Sveta Macias [facility] Inpatient Physicians Work Phone: Start: 12-25-2024 Non-patient / Non-visit Dr. Sveta Macias [facility] Inpatient Physicians Work Phone: Start: 12-25-2024 Dr. Sveta Macias DO [facility] Inpatient Physicians Work Phone: Start: 12-24-2024 ambulatory DIANA PRATT Facility: [facility] Start: 12-24-2024 End: 01-01-2025 Evaluation and management of inpatient Dr. Kevin Caballero DO -Medical Surgical 3 Work Phone: Start: 12-24-2024 End: 01-01-2025 Dr. Goldy Warren DO -Medical Surgical 3 Work Phone: Start: 12-09-2024 End: 12-11-2024 ambulatory Hannah Luciano PA-C Work Phone: [employer] [facility] [employer] Comment on above: Weakness (Primary Dx ); HTN (hypertension), benign; Chronic atrial fibrillation (HCC) Start: 12-03-2024 End: 12-03-2024 ambulatory Keerthi Cuba SHUTTLE DRIVER.RN HEMODIALYSIS Work Phone: [employer] Comment on above: Chronic atrial fibri llation (HCC) (Primary Dx); Chronic midline low back pain without sciatica; Mixed simple and mucopurulent chronic bronchitis (HCC); HTN (hypertension), benign; Weakness Start: 11-29-2024 End: 12-03-2024 ambulatory Keerthi Yinka [employer] SHUTTLE DRIVER.RN HEMODIALYSIS Work Phone: [facility] Comment on above: Mixed simple and muc opurulent chronic bronchitis (HCC) (Primary Dx); Chronic atrial fibrillation (HCC); HTN (hypertension), benign; Chronic midline low back pain without sciatica Start: 11-28-2024 End: 11-28-2024 Telephone encounter Marty Guthrie MD Work Phone: [facility] Central Scheduling Comment on above: Other (Central sched uling ) Start: 11-26-2024 End: 12-04-2024 ambulatory Isaias Keith DO Work Phone: [employer] Comment on above: Chronic atrial fibri llation (HCC) (Primary Dx); HTN (hypertension), benign; Paroxysmal atrial fibrillation (HCC); Mixed simple and mucopurulent chronic bronchitis (HCC); Weakness Start: 11-24-2024 Non-patient / Non-visit Dr. Kevin tapia MD [facility] Work Phone: Start: 11-24-2024 Dr. Kevin Robles MD [facility] Inpatient Physicians Work Phone: Start: 11-23-2024 Non-patient / Non-visit Dr. Kevin tapia MD [facility] Inpatient Physicians Work Phone: Start: 11-23-2024 Dr. Kevin Robles MD [facility] Inpatient Physicians Work Phone: Start: 11-22-2024 Non-patient / Non-visit Dr. Kevin tapia [facility] Inpatient Physicians Work Phone: Start: 11-22-2024 Dr. Kevin Robles MD [facility] Inpatient Physicians Work Phone: Start: 11-21-2024 Non-patient / Non-visit Dr. Kevin tapia [facility] Inpatient Physicians Work Phone: Start: 11-21-2024 Dr. Kevin Robles MD [facility] Inpatient Physicians Work Phone: Start: 11-20-2024 Non-patient / Non-visit Dr. Gato Barksdale own DO -[facility] Start: 11-20-2024 Dr. Gato Givens DO -[facility] Start: 11-19-2024 Non-patient / Non-visit Dr. Gato Barksdale own DO -[facility] Start: 11-19-2024 Dr. Gato Givens DO -[facility] Start: 11-18-2024 ambulatory Brendan Mclain [facility] Start: 11-18-2024 Non-patient / Non-visit Dr. Kemar POLANCO [facility] Start: 11-18-2024 Dr. Brendan Mclain MD [facility] Start: 11-18-2024 Non-patient / Non-visit Dr. Gato Barksdale own DO -[facility] Start: 11-18-2024 Dr. Gato Givens DO -[facility] Start: 11-17-2024 ambulatory [facility]: [facility] Start: 11-17-2024 End: 11-24-2024 Evaluation and management of inpatient Dr. Elsy Perdomo MD -Intensive Care Unit Work Phone: Start: 11-17-2024 End: 11-24-2024 Dr. Kevin Robles MD -Progressive Care Un it Work Phone: Start: 10-03-2024 End: 10-03-2024 Emergency department patient visit DANIA M CHON Facility:[facility] Start: 09-19-2024 End: 09-19-2024 Telephone encounter Reji Alexander Work Phone: Pulmonary Medicine Start: 09-17-2024 End: 12-17-2024 Transcribe Orders Marty Guthrie MD Work Phone: [facility] Central Scheduling Comment on above: Asymptomatic menopau partha state (Primary Dx) Cardiac murmur, unsp ecified (Primary Dx) Start: 09-12-2024 End: 09-12-2024 Patient encounter procedure Keely Givens MD Work Phone: Pulmonary Medicine Comment on above: Lung nodules (Primar y Dx); Moderate COPD (chronic obstructive pulmonary disease) (HCC); Former smoker Start: 09-12-2024 End: 09-12-2024 ambulatory GISELLE ELIZONDO Facility:[facility] Start: 09-12-2024 End: 09-12-2024 Subsequent hospital visit by physician [facility] (I-Stat) Work Phone: Cat Scan Comment on above: Lung nodules [R91.8] Start: 08-29-2024 End: 08-29-[address] Reji Bennett MD -Laboratory, [place] Work Phone: Start: 08-29-2024 End: 08-29-2024 ambulatory [facility] Facility:[facility] Start: 08-16-2024 End: 08-16-2024 Telephone encounter Giselle Elizondo MD Work Phone: [facility] Comment on above: Received Outside Med [employer] Records ([facility] Orders for oxygen. 07/30/2024) Start: 07-31-2024 End: 08-08-2024 Telephone encounter Giselle Elizondo MD Work Phone: [facility] Comment on above: Orders Start: 07-22-2024 End: 07-22-2024 Telephone encounter Giselle Elizondo MD Work Phone: [facility] Comment on above: Results; Patient Cheo page (Results and her Pancreas) Start: 07-11-2024 End: 07-11-2024 ambulatory GISELLE ELIZONDO Facility:[facility] Start: 07-11-2024 End: 07-11-2024 Subsequent hospital visit by physician [facility] 1 Work Phone: Radiology Comment on above: Epigastric pain [R10 .13] Start: 07-10-2024 End: 07-10-2024 Telephone encounter Ana Meza APRN.RN HEMODIALYSIS Work Phone: [facility] Comment on above: Patient Question Start: 07-10-2024 End: 07-10-2024 ambulatory GISELLE ELIZONDO Facility:[facility] Start: 07-10-2024 End: 07-10-2024 Office outpatient visit 25 minutes Ana Meza APRN.RN HEMODIALYSIS Work Phone: [facility] Comment on above: Epigastric pain (Batsheva keerthi Dx); Pancreatic cyst Start: 07-09-2024 End: 07-09-2024 ambulatory Giselle Elizondo MD Work Phone: [facility] Comment on above: Nurse Triage Call Start: 06-16-2024 End: 06-18-2024 Refill Ana Meza APRN.RN HEMODIALYSIS Work Phone: [facility] Comment on above: Refill Request Start: 06-14-2024 End: 06-14-2024 Refill Giselle Elizondo MD Work Phone: [facility] Comment on above: Refill Request Start: 06-07-2024 End: 06-07-2024 Emergency department patient visit Nieves Borja MD Work Phone: [facility] Comment on above: Chronic left-sided t horacic back pain (Primary Dx) Start: 06-04-2024 End: 06-04-2024 Refill Giselle Elizondo MD Work Phone: [facility] Comment on above: Refill Request Start: 05-31-2024 End: 06-05-2024 ambulatory Giselle Elizondo MD Work Phone: [facility] Comment on above: Results (Pain from t he fall and asking for those results) Start: 05-29-2024 End: 05-29-2024 Subsequent hospital visit by physician [facility] Comment on above: Closed fracture of m ultiple ribs of left side, sequela [S22.42XS] Start: 05-29-2024 End: 05-29-2024 ambulatory GISELLE ELIZONDO [facility] Start: 05-29-2024 End: 05-29-2024 Office outpatient visit 25 minutes Giselle Elizondo MD Work Phone: [facility] Comment on above: Closed fracture of m ultiple ribs of left side, sequela (Primary Dx); Chronic left-sided thoracic back pain Start: 05-28-2024 End: 05-28-2024 ambulatory Giselle Elizondo MD Work Phone: [facility] Comment on above: chest injury Start: 05-20-2024 End: 05-20-2024 Refill Giselle Elizondo MD Work Phone: [facility] Comment on above: Refill Request Start: 05-08-2024 End: 05-08-2024 Telephone encounter Giselle Elizondo MD Work Phone: [facility] Comment on above: Insurance Authorizat ion Start: 04-29-2024 End: 04-29-2024 Patient encounter procedure Keely Givens MD Work Phone: Pulmonary Medicine Comment on above: Moderate COPD (chron ic obstructive pulmonary disease) (HCC) (Primary Dx); Ground glass opacity present on imaging of lung; Former smoker Start: 04-09-2024 End: 04-09-2024 Telephone encounter Giselle Elizondo MD Work Phone: [facility] Comment on above: Received Outside [facility] Records ([facility] xray 04/08/24) Start: 04-04-2024 Refill Giselle arredondo MD Work Phone: [facility] Comment on above: Refill Request Start: 03-27-2024 Refill Keely Givens MD Work Phone: Pulmonary Medicine Comment on above: Refill Request Start: 03-08-2024 Refill Ana Armando SHUTTLE DRIVER.RN HEMODIALYSIS Work Phone: [facility] Comment on above: Refill Request Start: 02-28-2024 Refill Ana Armando SHUTTLE DRIVER.RN HEMODIALYSIS Work Phone: [facility] Comment on above: Refill Request Start: 02-19-2024 Telephone encounter Giselle Elizondo MD Work Phone: [facility] Comment on above: Received Outside Med ical Records ([facility] 01/29/24) Start: 02-13-2024 Telephone encounter Giselle Elizondo MD Work Phone: [facility] Comment on above: Received Outside Med ical Records ([facility]) Start: 01-30-2024 Telephone encounter Keely Givens MD Work Phone: Pulmonary Medicine Comment on above: Results (Chest CT) Start: 01-26-2024 Telephone encounter Keely Givens MD Work Phone: Pulmonary Medicine Comment on above: Results Start: 01-19-2024 End: 01-19-2024 ambulatory GISELLE ELIZONDO Facility:[facility] Start: 01-19-2024 End: 01-19-2024 Subsequent hospital visit by physician [facility] Work Phone: [facility] Start: 01-17-2024 End: 01-17-2024 Patient encounter procedure Giselle Elizondo MD Work Phone: [facility] Comment on above: Medicare annual well ness visit, subsequent (Primary Dx); Idiopathic pulmonary fibrosis (HCC); Psoriatic arthritis (HCC); Obesity, Class I, BMI 30-34.9; 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; Abnormality of gait; Falling episodes; Skin irritation Start: 01-09-2024 Telephone encounter Giselle Elizondo MD Work Phone: [facility] Start: 01-08-2024 End: 01-08-2024 ambulatory GISELLE ELIZONDO Facility:[facility] Start: 01-05-2024 Refill Ana Mace SHUTTLE DRIVER.RN HEMODIALYSIS Work Phone: [facility] Comment on above: Refill Request Start: 01-05-2024 Telephone encounter Keely Givens MD Work Phone: Pulmonary Medicine Start: 01-02-2024 ambulatory Giselle arredondo MD Work Phone: Internal Medicine [facility] Start: 12-28-2023 End: 12-28-2023 Patient encounter procedure Keely Givens MD Work Phone: Pulmonary Medicine Comment on above: Chronic obstructive pulmonary disease, unspecified COPD type (HCC) (Primary Dx); Restrictive lung disease; History of pulmonary fibrosis; Pulmonary nodules; Former cigarette smoker Start: 11-27-2023 Telephone encounter Yadira walton PA-C Work Phone: [facility] Comment on above: Results Start: 11-26-2023 End: 11-26-2023 Patient encounter procedure Eula Gabriel SHUTTLE DRIVER.RN HEMODIALYSIS Work Phone: [facility] Comment on above: URI, acute (Primary Dx) Start: 11-08-2023 Telephone encounter Giselle Elizondo MD Work Phone: [facility] Comment on above: Waiting on return ca ll and rx Start: 11-07-2023 ambulatory Giselle arredondo MD Work Phone: [facility] Start: 11-07-2023 E-mail encounter kd m caregiver Giselle Elizondo MD Work Phone: [facility] Start: 11-06-2023 End: 11-06-2023 ambulatory GISELLE ELIZONDO Facility:[facility] Start: 11-02-2023 ambulatory Danae Gerardo [facility] Comment on above: Population Health Na vigation Outreach ([employer] care gaps) Start: 10-05-2023 Refill Giselle arredondo MD Work Phone: [facility] Comment on above: Refill Request Start: 10-01-2023 Refill Loan Adeline Madrigal PA-C Work Phone: [facility] Medicine Comment on above: Chronic obstructive pulmonary disease, unspecified COPD type (HCC) Refill Request Start: 09-28-2023 End: 09-28-2023 Patient encounter procedure Giselle Elizondo MD Work Phone: [facility] Comment on above: Itching (Primary Dx) ; Upper back pain; Abnormal weight loss; HTN (hypertension), benign; Paroxysmal atrial fibrillation (HCC); Hyperglycemia; Chronic constipation Start: 09-19-2023 Refill Giselle arredondo MD Work Phone: [facility] Comment on above: Refill Request Start: 08-11-2023 Refill Loanabdon Dudleytl Madrigal PA-C Work Phone: [facility] Pulmonary [facility] Medicine Comment on above: Chronic obstructive pulmonary disease, unspecified COPD type (HCC); Pulmonary fibrosis (HCC); Lung nodule Start: 08-07-2023 Preprocedural examin ation done Giselle Elizondo MD Work Phone: [facility] Work Phone: Start: 07-20-2023 End: 07-20-2023 Subsequent hospital visit by physician [facility] (1.5t) [facility] Comment on above: Pancreatic cyst [K86 .2] Start: 07-19-2023 ambulatory Keely Givens MD Work Phone: Pulmonary Medicine Comment on above: Received Outside Med ical Records Start: 07-07-2023 Telephone encounter Giselle Elizondo MD Work Phone: [facility] Comment on above: Medication Request Start: 06-16-2023 End: 06-16-2023 ambulatory [facility] Work Phone: [facility] Comment on above: Spirometry Start: 06-16-2023 End: 06-16-2023 Patient encounter procedure [facility] Work Phone: [facility] Comment on above: Moderate COPD (chron ic obstructive pulmonary disease) (HCC) (Primary Dx); Restrictive lung disease; Lung nodules; Former cigarette smoker Start: 06-16-2023 Telephone encounter Fernanda atkinson PA-C [facility] Comment on above: Results Start: 06-12-2023 Refill Giselle arredondo MD Work Phone: [facility] Comment on above: Refill Request Start: 05-25-2023 End: 05-25-2023 Subsequent hospital visit by physician Loan Madrigal PA-C Work Phone: [facility] Comment on above: No Show Start: 05-22-2023 Telephone encounter Giselle Elizondo MD Work Phone: [facility] Comment on above: Provider recommendat ion Start: 05-22-2023 End: 05-22-2023 Patient encounter procedure Fernanda Horne PA-C Work Phone: [facility] Comment on above: BRBPR (bright red bl ood per rectum) (Primary Dx); Chronic constipation; Abnormal weight loss; Abdominal distension (gaseous); Other constipation; Nausea Start: 05-17-2023 End: 05-17-2023 Online digital e/m svc est pt <7 d 11-20 minutes Loan Madrigal PA-C Work Phone: [facility] Pulmonary [facility] Comment on above: Chronic obstructive pulmonary disease, unspecified COPD type (HCC) (Primary Dx); Dysphagia, unspecified type; Lung nodule; Pulmonary fibrosis (HCC) Start: 03-22-2023 Telephone encounter Giselle Elizondo MD Work Phone: [facility] Comment on above: Medication Request Start: 02-20-2023 End: 02-20-2023 ambulatory Reji Bennett MD Work Phone: [facility] Comment on above: Arrived Start: 02-13-2023 Telephone encounter Giselle Elizondo MD Work Phone: [facility] Comment on above: Refill Request Start: 02-10-2023 Refill Giselle arredondo MD Work Phone: [facility] Comment on above: Refill Request Start: 01-05-2023 Telephone encounter Miguel Ángel berman MD Work Phone: [facility] Comment on above: is her surgery cance lled for 01/11? Start: 12-30-2022 Telephone encounter Giselle Elizondo MD Work Phone: [facility] Comment on above: [facility] Electrodiagnostic testing 12/30/2022) Start: 12-28-2022 Refill Giselle arredondo MD Work Phone: [facility] Comment on above: Refill Request Start: 12-27-2022 Admission to [facility] Diana Bae PA-C Work Phone: [facility] Start: 12-27-2022 ambulatory Diana Up on PA-C Work Phone: [facility] Start: 12-27-2022 Refill Giselle arredondo MD Work Phone: [facility] Comment on above: Refill Request Start: 12-13-2022 Telephone encounter Miguel Ángel berman MD Work Phone: [facility] Comment on above: Surgery Scheduling Start: 11-28-2022 End: 11-28-2022 Patient encounter procedure Giselle Elizondo MD Work Phone: [facility] Comment on above: Status post shoulder replacement, right (Primary Dx); Osteoporosis of shoulder region; Hypokalemia; Essential hypertension; Chronic atrial fibrillation (HCC); Chronic obstructive pulmonary disease, unspecified COPD type (HCC); Psoriatic arthritis (HCC) Start: 11-23-2022 ambulatory Facility:[facility] Start: 11-21-2022 Telephone encounter Giselle Elizondo MD Work Phone: [facility] Comment on above: Received Outside Med ical Records ([facility] Lab draw 11/21/2022) Results Start: 11-21-2022 End: 11-21-2022 ambulatory [facility] Work Phone: Start: 11-21-2022 End: 11-21-2022 Patient encounter procedure [facility] Start: 11-16-2022 End: 11-16-2022 Subsequent hospital visit by physician Diana Bae PA-C Work Phone: [facility] Comment on above: Dysphagia, unspecifi ed type; Choking, sequela Start: 11-07-2022 Telephone encounter Giselle Elizondo MD Work Phone: [facility] Comment on above: Results Start: 11-01-2022 Telephone encounter Giselle Elizondo MD Work Phone: [facility] Comment on above: Results (Labs /) Start: 10-27-2022 End: 10-27-2022 Office outpatient new 45 minutes Miguel Ángel Rea MD Work Phone: [facility] Comment on above: Choking, sequela (Pr imary Dx); Dysphagia, unspecified type Start: 10-26-2022 Refill Giselle arredondo MD Work Phone: [facility] Comment on above: Refill Request Start: 10-26-2022 Refill Giselle arredondo MD Work Phone: [facility] Comment on above: Refill Request Start: 10-20-2022 End: 10-20-2022 Online digital e/m svc est pt <7 d 11-20 minutes Loan Madrigal PA-C Work Phone: [facility] Pulmonary [facility] Sleep Medicine Comment on above: Chronic obstructive pulmonary disease, unspecified COPD type (HCC) (Primary Dx); Dysphagia, unspecified type; Lung nodule; Pulmonary fibrosis (HCC) Start: 10-14-2022 End: 10-14-2022 Subsequent hospital visit by physician Sienna Pft Room [address] [facility] Pul Function Test Comment on above: Chronic obstructive pulmonary disease, unspecified COPD type (HCC) Dysphagia, unspecifi ed type Start: 08-31-2022 Telephone encounter Anuj london MD Work Phone: [facility] Comment on above: Orders Orders (Testings to be completed) Start: 08-09-2022 Refill Giselle arredondo MD Work Phone: [facility] Comment on above: Refill Request Start: 07-12-2022 Telephone encounter Allyson Brewer PRN.RN HEMODIALYSIS Work Phone: [facility] Comment on above: Results Start: 07-11-2022 End: 07-11-2022 Patient encounter procedure Allyson Maradiaga SHUTTLE DRIVER.RN HEMODIALYSIS Work Phone: [facility] Comment on above: Viral URI with cough (Primary Dx) Start: 07-05-2022 Telephone encounter Giselle Elizondo MD Work Phone: [facility] Comment on above: Letter Start: 07-05-2022 End: 07-05-2022 Patient encounter procedure Giselle Elizondo MD Work Phone: [facility] Comment on above: Chronic atrial fibri llation (HCC) (Primary Dx); Chronic obstructive pulmonary disease, unspecified COPD type (HCC); Essential hypertension; Cervical spondylosis; History of right shoulder replacement; Chronic midline low back pain without sciatica; Psoriasis, unspecified; Psoriatic arthritis (HCC) Start: 06-08-2022 End: 06-08-2022 ambulatory [facility] Work Phone: Start: 06-08-2022 End: 06-08-2022 Patient encounter procedure [facility] Start: 05-10-2022 Telephone encounter No Pcp [facility] Comment on above: Patient Question (St op Xarelto for dental procedure) Start: 04-20-2022 End: 04-20-2022 Subsequent hospital visit by physician Lexi Merino MD Work Phone: [facility] Start: 04-12-2022 End: 04-12-2022 Patient encounter procedure [facility], WC Start: 03-07-2022 End: 03-07-2022 Patient encounter procedure [facility], Specimen Start: 02-28-2022 End: 02-28-2022 Patient encounter procedure [facility] Start: 02-09-2022 End: 02-09-2022 Subsequent hospital visit by physician Lexi Merino MD Work Phone: [facility] Comment on above: Dizziness and giddin ess Start: 02-01-2022 End: 02-01-2022 Subsequent hospital visit by physician Malcom Giron MD Work Phone: [facility] Comment on above: Presence of right ar tificial shoulder joint Start: 12-23-2021 End: 12-23-2021 Patient encounter procedure [facility], Specimen Start: 11-05-2021 End: 11-06-[address] MALCOM GIRON MD [facility] Start: 11-02-2021 End: 11-03-2021 Observation RUBY MARIE APRN-RN HEMODIALYSIS [facility] Start: 10-26-2021 End: 10-26-2021 Patient encounter procedure [facility], Mamou Start: 09-03-2021 End: 09-03-[address] MALCOM GIRON MD [facility] Start: 05-17-2021 End: 05-17-2021 Subsequent hospital visit by physician Nieves Frias MD Work Phone: [facility] Comment on above: Arrived Start: 04-02-2021 End: 04-02-2021 Subsequent hospital visit by physician Cedric Solomon MD Work Phone: [facility] Comment on above: Arrived Start: 02-11-2021 End: 02-11-2021 Subsequent hospital visit by physician Nieves Frias MD Work Phone: [facility] Comment on above: Arrived Start: [...] on above: Arrived Start: 06-28-2017 Ambulatory Janice Adamuman [facility] Start: 06-06-2017 [facility] Start: 06-01-2017 Ambulatory Anuj [facility]og[facility]ianaperlita [facility] Procedures Date Procedure Procedure Detail Performing Clinician Start: 05-15-[address] Marty Guthrie MD Work Phone: Start: 05-14-2025 Carbon dioxide measurement, partial pressure Dr. Marty Guthrie MD Work Phone: Start: 05-14-2025 Gases blood o2 satur ation only direct azael Dr. Marty Guthrie MD Work Phone: Start: 05-14-2025 Measurement of parti al pressure of oxygen in blood Dr. Marty Guthrie MD Work Phone: Start: 05-14-[address] Marty Guthrie MD Work Phone: Start: 05-14-[address] Marty Guthrie MD Work Phone: Start: 05-14-2025 Radiologic exam ches t [address] Marty Guthrie MD Work Phone: Start: 05-10-2025 Vitamin D, 25-hydrox y measurement Dr. Marty Guthrie MD Work Phone: Comment on above: Vitamin D StatusDefi ciency: <20 ng/mL (50nmol/L)Insufficiency: 20-30 ng/mL (50-75 nmol/L)Sufficiency: 30-100 ng/mL (75-250 nmol/L)Toxicity: >100 ng/mL (>250 nmol/L) Start: 05-06-2025 Radiologic exam ches t [address] Marty Guthrie MD Work Phone: Start: 04-30-[address] Marty Guthrie MD Work Phone: Start: 04-30-2025 Gram stain microscopy D melvi Guthrie MD Work Phone: Start: 04-30-2025 Microbial culture, routine Dr. Marty Guthrie MD Work Phone: Start: 04-30-2025 Serum inorganic phos phate measurement Dr. Marty Guthrie MD Work Phone: Start: 04-29-2025 Glucose quantitative blood xcpt reagent strip Domonique Gonzalez MD Work Phone: Start: 04-29-2025 Glucose quantitative blood xcpt reagent strip Domonique Gonzalez MD Work Phone: Start: 04-29-2025 Radiologic exam ches t single view Victorina Stoverahon SHUTTLE DRIVER - RN HEMODIALYSIS Work Phone: Start: 04-28-2025 Glucose quantitative blood xcpt reagent strip Domonique Gonzalez MD Work Phone: Start: 04-28-2025 Glucose quantitative blood xcpt reagent strip Domonique Gonzalez MD Work Phone: Start: 04-28-2025 Glucose quantitative blood xcpt reagent strip Domonique Gonzalez MD Work Phone: Start: 04-28-2025 Glucose quantitative blood xcpt reagent strip Domonique Gonzalez MD Work Phone: Start: 04-28-2025 Radiologic exam ches t single view Victorina Garsia SHUTTLE DRIVER - RN HEMODIALYSIS Work Phone: Start: 04-28-2025 Basic metabolic pane l calcium total Victorina Garsia SHUTTLE DRIVER - RN HEMODIALYSIS Work Phone: Start: 04-27-2025 Glucose quantitative blood xcpt reagent strip Domonique Gonzalez MD Work Phone: Start: 04-27-2025 Glucose quantitative blood xcpt reagent strip Domonique Gonzalez MD Work Phone: Start: 04-27-2025 Glucose quantitative blood xcpt reagent strip Domonique Gonzalez MD Work Phone: Start: 04-27-2025 Radiologic exam ches t single view Victorina Garsia SHUTTLE DRIVER - RN HEMODIALYSIS Work Phone: Start: 04-27-2025 End: 04-27-2025 Glucose quantitative blood xcpt reagent strip Domonique Gonzalez MD Work Phone: Start: 04-27-2025 ANTI-XA LEVEL, LMWH Dolores Tuttle SHUTTLE DRIVER - RN HEMODIALYSIS Work Phone: Start: 04-27-2025 Basic metabolic pane l calcium total Victorina Garsia SHUTTLE DRIVER - RN HEMODIALYSIS Work Phone: Start: 04-26-2025 Glucose quantitative blood xcpt reagent strip Domonique Gonzalez MD Work Phone: Start: 04-26-2025 Glucose quantitative blood xcpt reagent strip Domonique Gonzalez MD Work Phone: Start: 04-26-2025 Radex shoulder 1 view A cynthia Tran MD Work Phone: Start: 04-26-2025 Radex shoulder compl ete minimum 2 views Marjorie Yanely Tuttle SHUTTLE DRIVER - RN HEMODIALYSIS Work Phone: Start: 04-26-2025 Glucose quantitative blood xcpt reagent strip Domonique Gonzalez MD Work Phone: Start: 04-26-2025 Radiologic exam ches t single view Victorina Garsia SHUTTLE DRIVER - RN HEMODIALYSIS Work Phone: Start: 04-26-2025 End: 04-26-2025 Basic metabolic panel calcium total Victorina Garsia SHUTTLE DRIVER - RN HEMODIALYSIS Work Phone: Start: 04-25-2025 Glucose quantitative blood xcpt reagent strip Domonique Gonzalez MD Work Phone: Start: 04-25-2025 Glucose quantitative blood xcpt reagent strip Domonique Gonzalez MD Work Phone: Start: 04-25-2025 Glucose quantitative blood xcpt reagent strip Domonique Gonzalez MD Work Phone: Start: 04-25-2025 Ct abdomen & pelvis w/o contrst 1/> body re Alicia Arredondo DO Work Phone: Start: 04-25-2025 Radiologic exam ches t single view Victorina Garsia SHUTTLE DRIVER - RN HEMODIALYSIS Work Phone: Start: 04-25-2025 Glucose quantitative blood xcpt reagent strip Domonique Gonzalez MD Work Phone: Start: 04-25-2025 Blood count complete auto&auto difrntl wbc Victorina Garsia SHUTTLE DRIVER - RN HEMODIALYSIS Work Phone: Start: 04-24-2025 Glucose quantitative blood xcpt reagent strip Domonique Gonzalez MD Work Phone: Start: 04-24-2025 Culture bacterial quanttative colony count urine Alicia Arredondo DO Work Phone: Start: 04-24-2025 Glucose quantitative blood xcpt reagent strip Domonique Gonzalez MD Work Phone: Start: 04-24-2025 Glucose quantitative blood xcpt reagent strip Domonique Gonzalez MD Work Phone: Start: 04-24-2025 Radiologic exam ches t single view Victorina Garsia SHUTTLE DRIVER - RN HEMODIALYSIS Work Phone: Start: 04-24-2025 End: 04-24-2025 Basic metabolic panel calcium total Victorina Garsia SHUTTLE DRIVER - RN HEMODIALYSIS Work Phone: Start: 04-23-2025 Glucose quantitative blood xcpt reagent strip Domonique Gonzalez MD Work Phone: Start: 04-23-2025 TTE w or wo fol wcon,Doppler Victorina Garsia SHUTTLE DRIVER - RN HEMODIALYSIS Work Phone: Start: 04-23-2025 Glucose quantitative blood xcpt reagent strip Domonique Gonzalez MD Work Phone: Start: 04-23-2025 Glucose quantitative blood xcpt reagent strip Domonique Gonzalez MD Work Phone: Start: 04-23-2025 Radiologic exam ches t single view Victorina Garsia SHUTTLE DRIVER - RN HEMODIALYSIS Work Phone: Start: 04-23-2025 Ecg routine ecg w/le ast 12 lds trcg only w/o i&r Victorina Garsia SHUTTLE DRIVER - RN HEMODIALYSIS Work Phone: Start: 04-23-2025 Ct head/brain w/o contrast material Marsha Skinner MD Work Phone: Start: 04-23-2025 Basic metabolic pane l calcium total Marsha Skinner MD Work Phone: Start: 04-23-2025 Radex hand 2 views Zakiya Dent MD Work Phone: Start: 04-22-[address] Marty Guthrie MD Work Phone: Start: 04-22-2025 Urnls dip stick/tabl et reagent auto microscopy NISA GUTHRIE Work Phone: Start: 04-22-2025 Plain x-ray of hand MARYCARMEN ECCA GUTHRIE Work Phone: Start: 04-22-2025 CT cervical spine wi thout contrast NISA GUTHRIE Work Phone: Start: 04-22-2025 CT of chest without contrast NISA GUTHRIE Work Phone: Start: 04-22-2025 CT of head without contrast NISA GUTHRIE Work Phone: Start: 04-22-2025 Estimated creatinine clearance NISA GUTHRIE Work Phone: Start: 04-22-2025 X-ray of knee, four or more views NISA GUTHRIE Work Phone: Start: 04-22-2025 Plain X-ray of shoulder NISA GUTHRIE Work Phone: Start: 03-20-2025 Dxa bone density juan dy 1/> sites axial skel Marty Guthrie MD Work Phone: Start: 03-13-2025 X-ray of lumbar spin e, two or three views NISA GUTHRIE Work Phone: Start: 03-10-2025 Urine microscopy: re d cells NISA GUTHRIE Work Phone: Start: 03-10-2025 Urnls dip stick/tabl et reagent auto microscopy NISA GUTHRIE Work Phone: Start: 02-11-2025 X-ray of lumbar spin e, two or three views NISA GUTHRIE Work Phone: Start: 01-23-2025 Protein xcpt refractometry serum plasma/whl bld Felecia Mercado SHUTTLE DRIVER - RN HEMODIALYSIS Work Phone: Start: 01-14-2025 X-ray of lumbar spin e, two or three views NISA GUTHRIE Work Phone: Start: 12-30-2024 Fluoroscopic guidance R EBECCA GUTHRIE Work Phone: Start: 12-30-2024 X-ray of lumbar spin e, two or three views NISA GUTHRIE Work Phone: Start: 12-30-2024 Balloon kyphoplasty of fracture of spine NISA GUTHRIE Work Phone: Start: 12-29-2024 Estimated creatinine clearance NISA GUTHRIE Work Phone: Start: 12-29-2024 Mean corpuscular hemoglobin concentration determination NISA GUTHRIE Work Phone: Start: 12-29-2024 Platelet mean volume determination NISA GUTHRIE Work Phone: Start: 12-27-2024 X-ray of lumbar spin e, two or three views NISA GUTHRIE Work Phone: Start: 12-26-2024 Serum inorganic phos phate measurement NISA GUTHRIE Work Phone: Start: 12-25-2024 Blood count smear mc rscp w/mnl difrntl wbc count NISA GUTHRIE Work Phone: Start: 12-25-2024 Nucleated red blood cell count procedure NISA GUTHRIE Work Phone: Start: 12-25-2024 Vitamin D, 25-hydrox y measurement NISA GUTHRIE Work Phone: Comment on above: Vitamin D StatusDefi ciency: <20 ng/mL (50nmol/L)Insufficiency: 20-30 ng/mL (50-75 nmol/L)Sufficiency: 30-100 ng/mL (75-250 nmol/L)Toxicity: >100 ng/mL (>250 nmol/L) Start: 12-24-2024 Urine microscopy: re d cells NISA GUTHRIE Work Phone: Start: 12-24-2024 Urnls dip stick/tabl et reagent auto microscopy NISA GUTHRIE Work Phone: Start: 12-24-2024 MRI of lumbar spine MARYCARMEN [place]CCA [place] Work Phone: Start: 12-24-2024 Plain chest X-ray REBADA CA [place] Work Phone: Start: 12-24-2024 CT of lumbar spine HAL CCA GUTHRI[facility] Work Phone: Start: 12-24-2024 Urine culture NISA P ATEL Work Phone: Start: 11-24-2024 Blood count smear mc rscp w/mnl difrntl wbc count NISASTEVEN GUTHRIE Work Phone: Start: 11-24-2024 Estimated creatinine clearance NISA GUTHRIE Work Phone: Start: 11-24-2024 Mean corpuscular hemoglobin concentration determination NISA GUTHRIE Work Phone: Start: 11-24-2024 Nucleated red blood cell count procedure NISA GUTHRIE Work Phone: Start: 11-24-2024 Platelet mean volume determination NISA GUTHRIE Work Phone: Start: 11-22-2024 Serum inorganic phos phate measurement NISA GUTHRIE Work Phone: Start: 11-18-2024 Calculation of international normalized ratio NISA GUTHRIE Work Phone: Start: 11-17-2024 Triacylglycerol lipa se measurement NISA GUTHRIE Work Phone: Start: 11-17-2024 CT of chest, abdomen and pelvis without contrast NISA GUTHRIE Work Phone: Start: 11-17-2024 Assay of lactate REBECC A GUTHRIE Work Phone: Start: 11-17-2024 Plain chest X-ray REBEC CA GUTHRIE Work Phone: Start: 11-17-2024 Plain x-ray of pelvi s and lower extremity NISA GUTHRIE Work Phone: Start: 11-17-2024 Bacterial nucleic ac id assay NISA GUTHRIE Work Phone: Start: 11-17-2024 Blood culture NISA P ATEL Work Phone: Start: 11-17-2024 Legionella pneumophi la antigen assay NISA GUTHRIE Work Phone: Start: 11-17-2024 Nucleic acid assay HAL CCA GUTHRIE Work Phone: Start: 11-17-2024 SARS-CoV-2, Influenz a & RSV (PCR) NISA GUTHRIE Work Phone: Start: 11-17-2024 End: 11-17-2024 Streptococcus pneumoniae antigen assay NISA GUTHRIE Work Phone: Start: 11-17-2024 NISA PA TEL Work Phone: Start: 11-17-2024 Urine microscopy: re d cells NISA GUTHRIE Work Phone: Start: 11-17-2024 Urnls dip stick/tabl et reagent auto microscopy NISA GUTHRIE Work Phone: Start: 07-11-2024 Us abdominal real ti me w/image limited Ana Meza SHUTTLE DRIVER.RN HEMODIALYSIS Work Phone: Start: 01-17-2024 Adult depression screening assessment Keely Givens MD Work Phone: Start: 11-26-2023 STREP A MOLECULAR (POC) [facility] Start: 06-16-2023 Co diffusing capacity E shruthiangel Givens MD Work Phone: Start: 11-21-2022 CBC + DIFF [facility] Provid er Start: 11-16-2022 Radiologic exam swal low function contrast study Diana Bae PA-C Work Phone: Start: 10-14-2022 Brncdilat rspse spmt ry pre&post-brncdilat admn Loan Adeline Madrigal PA-C Work Phone: Start: 10-14-2022 Radiologic exam esop hagus single contrast study Loan Adeline Madrigal PA-C Work Phone: Start: 07-05-2022 H/O: artificial joint History of right shoulder replacement Giselle Elizondo MD Work Phone: Start: 04-12-2022 X-ray of cervical spine Start: 02-09-2022 Ct head/brain w/o & w/contrast material Lexi Mreino MD Work Phone: Start: 02-09-2022 Creatinine blood [...] Appendectomy DR MALCOM Soliz MD Cholecystectomy DR MALCMO ALVARENGA MD Comment on above: x2 Cytopathology [...] Treatment Date Care Activity Detail Author Start: 01-24-2028 Diabetes Screening Diabetes Screening [facility] Start: 03-20-2027 Screening for osteoporosis Bone Density Scan [facility] Start: 01-18-2027 Diabetes Screening Diabetes Screening [facility] Start: 11-05-2026 Diabetes Screening Diabetes Screening [facility] Start: 05-30-2026 Diabetes Screening Diabetes Screening [facility] Start: 05-22-2026 Creatinine measurement Creatinine Level [facility] Start: 05-22-2026 Potassium measurement Potassium Level [facility] Start: 04-28-2026 Creatinine measurement Creatinine Level [facility] Start: 04-28-2026 Potassium measurement Potassium Level [facility] Start: 04-23-2026 Echocardiography Echocardiogram [facility] Start: 01-23-2026 Creatinine measurement Creatinine Level [facility] Start: 01-23-2026 Potassium measurement Potassium Level [facility] Start: 11-03-2025 DIABETES SCREEN DIABETES SCREEN [facility] Start: 11-03-2025 Diabetes Screening Diabetes Screening [facility] Start: 10-28-2025 DIABETES SCREEN DIABETES SCREEN [facility] Start: 07-31-2025 End: 07-31-2025 Patient encounter procedure [facility] [place] Start: 05-19-2025 End: 05-20-2025 Discharged Recurring Discharged Recurring -Wound Healing [facility] Work Phone: Start: 05-16-2025 Patient discharge [facility] Start: 05-15-2025 [facility] Start: 05-12-2025 Referral to service [facility] Start: 05-12-2025 Following clinical pathway protocol [facility] Start: 05-10-2025 Following clinical pathway protocol [facility] Start: 05-08-2025 [facility] Start: 05-07-2025 End: 05-07-2025 Patient encounter procedure 05/07/2025 1:15 PM EDT Office Visit [facility] [address] [phone] Anuj Ramos MD [address] [place] [phone] [facility] [place] Start: 05-07-2025 Inhalation therapy procedure [facility] Start: 05-05-2025 Subsequent hospital visit by physician 05/05/2025 1:15 PM EDT [facility] [address] [place] [address] Start: 05-02-2025 End: 05-02-2025 [facility] Start: 04-30-2025 Wound care [facility] Start: 04-30-2025 End: 04-23-2026 CT Head WO contrast CT head wo IV contrast Imaging Routine Acute subdural hematoma (HCC) Expected: 04/30/2025, Expires: 04/23/2026 [facility] Work Phone: Comment on above: Expected: 04/30/2025, Expires: Start: 04-30-2025 Consultation for pain [facility] Start: 04-30-2025 Consultation [facility] Start: 04-29-2025 Recommendation to continue with treatment [facility] Start: 04-29-2025 Referral for physical therapy [facility] Start: 04-29-2025 Admission procedure [facility] Start: 04-29-2025 Measuring intake and output [facility] Start: 04-29-2025 End: 04-30-2025 Patient referral to dietitian [facility] Start: 04-29-2025 Referral to occupational therapist [facility] Start: 04-29-2025 Vital signs measurements [facility] Start: 04-29-2025 End: 04-29-2025 [facility] Start: 04-29-2025 Incentive spirometry [facility] Start: 04-29-2025 Oxygen therapy [facility] Start: 04-29-2025 Speech therapy assessment [facility] Start: 04-22-2025 [facility] Start: 04-22-2025 [facility] Start: 04-21-2025 COVID-19 Vaccine ( season) COVID-19 Vaccine ( season) [facility] Start: 04-21-2025 Influenza vaccination [facility] Start: 2025 End: 2025 ambulatory 2025 1:00 PM EDT Visit (SP) Office Hematology/Oncology [address] [place] [address] Gagan Vivar MD [address] [place], [place] [phone] 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/REF BY MARTY GUTHRIE* NEXT AVAILABLE Hematology/Oncology Comment on above: 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/REF BY MARTY STONE* NEXT AVAILABLE Start: 03-13-2025 X-ray of lumbar spine, two or three views [facility] Start: 03-13-2025 XR Lumbar spine 2 or 3 Views [facility] Start: 02-12-2025 [facility] Start: 01-23-2025 End: 07-23-2025 25-hydroxyvitamin D3 [Mass/volume] in Serum or Plasma Vitamin D Deficiency Screening (Vit D 25) Lab Routine Age-related osteoporosis without current pathological fracture Postmenopausal History of fragility fracture Expected: 01/23/2025 (Approximate), Expires: 07/23/2025 [employer] Comment on above: Expected: 01/23/2025 (Approximate), Expi res: 07/23/2025 Start: 01-23-2025 End: 07-23-2025 Collagen Type I C-Telopeptide (CTx) Collagen Type I C-Telopeptide (CTx) Lab Routine Age-related osteoporosis without current pathological fracture Postmenopausal History of fragility fracture Expected: 01/23/2025 (Approximate), Expires: 07/23/2025 [employer] Comment on above: Expected: 01/23/2025 (Approximate), Expi res: 07/23/2025 Start: 01-23-2025 End: 07-23-2025 Comprehensive metabolic 1998 panel - Serum or Plasma Comprehensive metabolic panel Lab Routine Age-related osteoporosis without current pathological fracture Postmenopausal History of fragility fracture Expected: 01/23/2025 (Approximate), Expires: 07/23/2025 [employer] [facility] Work Phone: Comment on above: Expected: 01/23/2025 (Approximate), Expi res: 07/23/2025 Start: 01-23-2025 End: 01-21-2026 DXA Skeletal system.axial Views for bone density DEXA bone density axial skeleton Imaging Routine Age-related osteoporosis without current pathological fracture Postmenopausal History of fragility fracture Expected: 01/23/2025, Expires: 01/21/2026 [employer] Comment on above: Expected: 01/23/2025, Expires: Start: 01-23-2025 End: 07-23-2025 Magnesium [Mass/volume] in Serum or Plasma Magnesium Lab Routine Age-related osteoporosis without current pathological fracture Postmenopausal History of fragility fracture Expected: 01/23/2025 (Approximate), Expires: 07/23/2025 [employer] Comment on above: Expected: 01/23/2025 (Approximate), Expi res: 07/23/2025 Start: 01-23-2025 End: 07-23-2025 Parathyrin.intact [Mass/volume] in Serum or Plasma PTH, intact Lab Routine Age-related osteoporosis without current pathological fracture Postmenopausal History of fragility fracture Expected: 01/23/2025 (Approximate), Expires: 07/23/2025 [facility] [employer] Comment on above: Expected: 01/23/2025 (Approximate), Expi res: 07/23/2025 Start: 01-23-2025 End: 01-21-2026 PROCOLLAGEN TYPE I INTACT N TERMINAL PROPEPTIDE PROCOLLAGEN TYPE I INTACT N TERMINAL PROPEPTIDE Lab Routine Age-related osteoporosis without current pathological fracture Postmenopausal History of fragility fracture Expected: 01/23/2025 (Approximate), Expires: 01/21/2026 [facility] Comment on above: Expected: 01/23/2025 (Approximate), Expi res: 01/21/2026 Start: 01-23-2025 End: 01-21-2026 Protein, Total and Protein Electrophoresis [facility] [employer] Comment on above: Expected: 01/23/2025 (Approximate), Expi res: 01/21/2026 Start: 01-23-2025 End: 07-23-2025 Thyrotropin [Units/volume] in Serum or Plasma TSH Lab Routine Age-related osteoporosis without current pathological fracture Postmenopausal History of fragility fracture Expected: 01/23/2025 (Approximate), Expires: 07/23/2025 [facility] Comment on above: Expected: 01/23/2025 (Approximate), Expi res: 07/23/2025 Start: 01-16-2025 Anxiety Screening Anxiety Screening [facility] Start: 01-16-2025 Depression Screening Depression Screening [facility] Start: 01-14-2025 X-ray of lumbar spine, two or three views Lumbar Spine 2 or 3 Views [facility] Start: 01-14-2025 XR Lumbar spine 2 or 3 Views [facility] Start: 01-01-2025 Patient discharge [facility] Start: 12-31-2024 Referral to service [facility] Start: 12-28-2024 Care planning and problem solving actions [facility] Start: 12-27-2024 Inhalation therapy procedure [facility] Start: 12-25-2024 [facility] Start: 12-25-2024 Consultation [facility] Start: 12-25-2024 Consultation for pain [facility] Start: 12-24-2024 Following clinical pathway protocol [facility] Start: 12-24-2024 Assessment of risk of venous thromboembolism [facility] Start: 12-24-2024 Incentive spirometry [facility] Start: 12-24-2024 Insertion of catheter into peripheral vein [facility] Start: 12-24-2024 Measuring intake and output [facility] Start: 12-24-2024 Oxygen therapy [facility] Start: 12-24-2024 Providing care according to standard [facility] Start: 12-24-2024 Provision of activity privileges [facility] Start: 12-24-2024 Referral to occupational therapist [facility] Start: 12-24-2024 Referral to service [facility] Start: 12-24-2024 Urinalysis complete panel - Urine [facility] Start: 12-24-2024 End: 12-24-2024 [facility] Start: 12-24-2024 MRI of lumbar spine Spine Lumbar (Routine) [facility] Start: 12-24-2024 Verification routine [facility] Start: 12-24-2024 Admission procedure [facility] Start: 12-24-2024 Hospital admission, emergency, from emergency room, medical nature [facility] Start: 12-24-2024 Thyroid stimulating hormone measurement [facility] Start: 12-24-2024 End: 12-25-2024 [facility] Start: 12-24-2024 Consultation [facility] Start: 12-24-2024 Patient referral to dietitian [facility] Start: 12-18-2024 End: 12-18-2024 Patient encounter procedure Pulmonary Medicine Comment on above: 3m f/up Start: 12-11-2024 End: 10-12-2025 CT Chest WO contrast CT CHEST [facility] Radiology Routine Lung nodules Expected: 12/11/2024, Expires: 10/12/2025 [facility] Work Phone: Comment on above: Expected: 12/11/2024, Expires: Start: 12-11-2024 End: 12-11-2024 Patient encounter procedure 12/11/2024 11:00 AM EDT Appointment Cat Scan [address] [place] [address] Lung nodules [R91.8] Cat Scan Comment on above: Lung nodules [R91.8] Start: 11-24-2024 Patient discharge [facility] Start: 11-21-2024 Removal of urinary catheter [facility] Start: 11-19-2024 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 [facility] Start: 11-18-2024 Consultation for pain [facility] Start: 11-18-2024 Implementation of planned interventions [facility] Start: 11-18-2024 Notification of physician [facility] Start: 11-18-2024 Speech therapy assessment [facility] Start: 11-18-2024 Application of abdominal corset [facility] Start: 11-17-2024 Care of central venous catheter [facility] Start: 11-17-2024 Following clinical pathway protocol [facility] Start: 11-17-2024 Assessment of risk of venous thromboembolism [facility] Start: 11-17-2024 Catheterization of vein [facility] Start: 11-17-2024 Elevation of head of bed [facility] Start: 11-17-2024 Inhalation therapy procedure [facility] Start: 11-17-2024 Insertion of catheter into peripheral vein [facility] Start: 11-17-2024 Measuring intake and output [facility] Start: 11-17-2024 Notification of physician [facility] Start: 11-17-2024 Oxygen therapy [facility] Start: 11-17-2024 Patient education [facility] Start: 11-17-2024 Providing care according to standard [facility] Start: 11-17-2024 Referral to occupational therapist [facility] Start: 11-17-2024 Referral to service [facility] Start: 11-17-2024 Vital signs measurements [facility] Start: 11-17-2024 [facility] Start: 11-17-2024 Verification routine [facility] Start: 11-17-2024 Admission procedure [facility] Start: 11-17-2024 Hospital admission, emergency, from emergency room, medical nature [facility] Start: 11-17-2024 Bacteria identified in Blood by Culture Blood Culture [facility] Start: 11-17-2024 End: 11-17-2024 [facility] Start: 11-17-2024 Consultation [facility] Start: 11-17-2024 Consultation [facility] Start: 11-17-2024 Patient referral to dietitian [facility] Start: 11-17-2024 [facility] Start: 09-17-2024 End: 09-17-2025 DXA Skeletal system.axial Views for bone density DEXA bone density axial skeleton Imaging Routine Asymptomatic menopausal state Expected: 09/17/2024, Expires: 09/17/2025 [employer] Work Phone: Comment on above: Expected: 09/17/2024, Expires: Start: 09-17-2024 End: 09-17-2026 US Heart Transthoracic Transthoracic echocardiogram (TTE) complete with contrast, bubble, strain, and 3D PRN CV Echocardiography Routine Cardiac murmur, unspecified Expected: 09/17/2024 (Approximate), Expires: 09/17/2026 [employer] Work Phone: Comment on above: Expected: 09/17/2024 (Approximate), Expi res: 09/17/2026 Start: 09-12-2024 End: 09-12-2024 Patient encounter procedure Cat Scan Comment on above: Lung nodules [R91.8]; Ground glass opaci ty present on imaging of lung [R91.8] follow up from CT sc an Start: 08-21-2024 Advance Directive Discussion Advance Directive Discussion [facility] Start: 08-21-2024 Medicare Advantage Annual Wellness Visit Medicare Advantage Annual Wellness Visit [facility] Start: 08-05-2024 End: 08-05-2024 Patient encounter procedure 08/05/2024 11:00 AM EST Appointment Cat Scan [address] [place] [address] Lung nodules [R91.8]; Ground glass opacity present on imaging of lung [R91.8] Cat Scan Comment on above: Lung nodules [R91.8]; Ground glass opaci ty present on imaging of lung [R91.8] Start: 07-31-2024 End: 02-28-2025 CT Chest WO contrast CT CHEST WO IVCON Radiology Routine Lung nodules Ground glass opacity present on imaging of lung Expected: 07/31/2024, Expires: 02/28/2025 [facility] Work Phone: Comment on above: Expected: 07/31/2024, Expires: Start: 07-26-2024 End: 07-26-2024 Patient encounter procedure 07/26/2024 11:00 AM EST Appointment Radiology [address] [place] [address] Pancreatic cyst [K86.2] Radiology Comment on above: Pancreatic cyst [K86.2] Start: 07-11-2024 End: 07-11-2024 Patient encounter procedure 07/11/2024 10:00 AM EST Appointment Radiology [address] [place], [place] [id number] Epigastric pain [R10.13] Radiology Comment on above: Epigastric pain [R10.13] Start: 07-10-2024 End: 07-10-2024 Patient encounter procedure 07/10/2024 10:00 AM EST Office Visit Family Practice [address] [place], [place] [address] Ana Meza APRN.RN HEMODIALYSIS [address] [place] [address] pain in between breasts past few weeks [facility] Comment on above: pain in between breasts past few weeks Start: 05-29-2024 End: 05-29-2024 Patient encounter procedure 05/29/2024 11:00 AM EDT Office Visit Family Practice [address] [place] [address] Giselle Elizondo MD [address] [place], [place] [id number] Rib pain - see triage [facility] Comment on above: Rib pain - see triage Start: 04-29-2024 End: 04-29-2024 Patient encounter procedure 04/29/2024 11:00 AM EDT Office Visit Pulmonary Medicine [address] [place] [address] Keely Givens MD [address] [place] [address] 4 MO OV Pulmonary Medicine Comment on above: 4 MO OV Start: 04-21-2024 COVID-19 Vaccine () COVID-19 Vaccine () [facility] Start: 04-21-2024 COVID-19 Vaccine () COVID-19 Vaccine () [facility] Start: 04-21-2024 Covid-19 Vaccine () Covid-19 Vaccine () [facility] Start: 04-21-2024 Covid-19 Vaccine () Covid-19 Vaccine () [facility] Start: 04-21-2024 Influenza [facility] Start: 03-21-2024 DIABETES SCREEN DIABETES SCREEN [facility] Start: 01-19-2024 End: 01-19-2024 Patient encounter procedure 01/19/2024 11:00 AM EDT Appointment [facility]IO [facility] [address] [facility] Comment on above: CT Start: 01-17-2024 End: 01-17-2024 Patient encounter procedure 01/17/2024 1:40 PM EDT Office Visit Family Practice [address] [place] [address] [address] [place], [place] [id number] Giselle Elizondo MD [address] [place] [address] [place] [address] medicare wellness [facility] Comment on above: medicare wellness Start: 01-10-2024 End: 04-10-2024 Comprehensive metabolic 2000 panel - Serum or Plasma COMPREHENSIVE METABOLIC PANEL Lab Routine Hypokalemia Expected: 01/10/2024, Expires: 04/10/2024 [facility] Work Phone: Comment on above: Expected: 01/10/2024, Expires: Start: 01-02-2024 End: 04-02-2024 CBC panel - Blood by Automated count COMPLETE BLOOD COUNT Lab Routine Medication management Expected: 01/02/2024, Expires: 04/02/2024 [facility] Work Phone: Comment on above: Expected: 01/02/2024, Expires: Start: 11-29-2023 SHINGRIX VACCINE (1 of 2) SHINGRIX VACCINE (1 of 2) [facility] Comment on above: Postponed from 1960 (Declined at t his time) Postponed from 03/31 (Declined at this time) Start: 11-29-2023 Urine microalbumin profile [facility] Comment on above: Postponed from 1960 (Declined at t his time) Start: 11-03-2023 End: 02-02-2024 Comprehensive metabolic 2000 panel - Serum or Plasma COMP METABOLIC PANEL Lab Routine HTN (hypertension), benign Hyperglycemia Expected: 11/03/2023, Expires: 02/02/2024 [facility] Work Phone: Comment on above: Expected: 11/03/2023, Expires: Start: 11-03-2023 End: 02-02-2024 Hemoglobin A1c in Blood HGB A1C Lab Routine Hyperglycemia Expected: 11/03/2023, Expires: 02/02/2024 [facility] Work Phone: Comment on above: Expected: 11/03/2023, Expires: 4 Start: 11-03-2023 End: 02-02-2024 Thyrotropin [Units/volume] in Serum or Plasma TSH BLD Lab Routine Chronic constipation Expected: 11/03/2023, Expires: 02/02/2024 [facility] Work Phone: Comment on above: Expected: 11/03/2023, Expires: 4 Start: 10-24-2023 Covid-19 Vaccine () Covid-19 Vaccine () [facility] Start: 08-21-2023 Advance Directive Discussion Advance Directive Discussion [facility] Start: 08-21-2023 Behavioral Health Screening Behavioral Health Screening [facility] Start: 08-21-2023 Depression Assessment Depression Assessment [facility] Start: 08-21-2023 Medicare Advantage Annual Wellness Visit Medicare Advantage Annual Wellness Visit [facility] Start: 06-08-2023 End: 06-08-2023 Patient encounter procedure 06/08/2023 1:40 PM EDT Office Visit [facility] Pulmonary and Sleep Medicine [address] [place] [phone] Loan Madrigal PA-C [address] [place], [place] [id number] [facility]monary [facility] Start: 05-25-2023 Subsequent hospital visit by physician 05/25/2023 3:45 PM EDT Hospital Encounter [facility] [address] [place] [address] Loan Madrigal PA-C [address] [place] [address] Start: 05-22-2023 End: 07-22-2023 CREATININE BLD CREATININE BLD Lab Routine BRBPR (bright red blood per rectum) Chronic constipation Abnormal weight loss Abdominal distension (gaseous) Other constipation Nausea Expected: 05/22/2023, Expires: 07/22/2023 [facility] Work Phone: Comment on above: Expected: 05/22/2023, Expires: 3 Start: 05-17-2023 End: 05-17-2024 CT Chest WO contrast CT chest wo IV contrast Imaging Routine Pulmonary fibrosis (HCC) Expected: 05/17/2023, Expires: 05/17/2024 [facility] Work Phone: Comment on above: Expected: 05/17/2023, Expires: 4 Start: 04-21-2023 End: 06-21-2023 Basic metabolic 2000 panel - Serum or Plasma BASIC METABOLIC PNL Lab Routine Hypokalemia Expected: 04/21/2023, Expires: 06/21/2023 [facility] Work Phone: Comment on above: Expected: 04/21/2023, Expires: Start: 04-21-2023 COVID-19 Vaccine () COVID-19 Vaccine () [facility] Start: 04-21-2023 Covid-19 Vaccine () Covid-19 Vaccine () [facility] Start: 04-21-2023 Influenza vaccination [facility] Start: 02-01-2023 Covid-19 Vaccine (6 - Moderna series) Covid-19 Vaccine (6 - Moderna series) [facility] Start: 01-11-2023 End: 01-11-2023 Admission to same day surgery center 01/11/2023 Surgery Gastroenterology Miguel Ángel Rea MD [address] [place], [place] [id number] EGD WITH BIOPSY [81390 (CPT )] [facility] Comment on above: EGD WITH BIOPSY [23689 (CPT )] Start: 01-11-2023 End: 01-11-2023 Egd transoral biopsy single/multiple EGD WITH BIOPSY Dysphagia, unspecified 01/11/2023 12:15 PM EDT [facility] Start: 01-11-2023 End: 01-11-2023 Esophageal motility study w/interp&rpt ESOPHAGUS MOTILITY STUDY Dysphagia, unspecified 01/11/2023 12:15 PM EDT [facility] Start: 01-11-2023 Subsequent hospital visit by physician 01/11/2023 Hospital Encounter Gastroenterology Miguel Ángel Rea MD [address] [place], [place] [id number] [facility] [address] [facility] Start: 12-28-2022 End: 12-28-2022 Patient encounter procedure 12/28/2022 Appointment [facility] Start: 11-01-2022 End: 01-01-2023 Hemoglobin A1c in Blood HGB A1C Lab Routine Hyperglycemia Expected: 11/01/2022, Expires: 01/01/2023 [facility] Work Phone: Comment on above: Expected: 11/01/2022, Expires: 3 Start: 10-27-2022 End: 10-27-2022 Patient encounter procedure 10/27/2022 Office Visit General Surgery Miguel Ángel Rea MD [address] [place] [address] [facility] Laproscopic Surgery Start: 10-26-2022 End: 12-26-2022 CBC panel - Blood by Automated count CBC Lab Routine Cervical spondylosis Chronic atrial fibrillation (HCC) Expected: 10/26/2022, Expires: 12/26/2022 [facility] Work Phone: Comment on above: Expected: 10/26/2022, Expires: 3 Start: 10-26-2022 End: 12-26-2022 Comprehensive metabolic 2000 panel - Serum or Plasma COMP METABOLIC PANEL Lab Routine Chronic atrial fibrillation (HCC) Expected: 10/26/2022, Expires: 12/26/2022 [facility] Work Phone: Comment on above: Expected: 10/26/2022, Expires: 3 Start: 10-26-2022 End: 12-26-2022 Lipid 1996 panel - Serum or Plasma LIPID PANEL BASIC Lab Routine Screening for lipid disorders Expected: 10/26/2022, Expires: 12/26/2022 [facility] Work Phone: Comment on above: Expected: 10/26/2022, Expires: 3 Start: 10-26-2022 End: 12-26-2022 Thyrotropin [Units/volume] in Serum or Plasma TSH BLD Lab Routine Chronic atrial fibrillation (HCC) Essential hypertension Expected: 10/26/2022, Expires: 12/26/2022 [facility] Work Phone: Comment on above: Expected: 10/26/2022, Expires: 3 Start: 10-20-2022 End: 10-21-2023 CT Chest WO contrast CT chest wo IV contrast Imaging Routine Lung nodule Pulmonary fibrosis (HCC) Expected: 10/20/2022, Expires: 10/21/2023 [facility] Work Phone: Comment on above: Expected: 10/20/2022, Expires: 4 Start: 10-14-2022 End: 10-14-2022 Patient encounter procedure [facility] X-ray Imaging Start: 09-20-2022 End: 09-20-2022 Telemedicine consultation with patient 09/20/2022 Telemedicine Pulmonology Loan Madrigal PA-C [address] [place] [id number] [facility] Start: 08-21-2022 ADVANCE DIRECTIVE DISCUSSION ADVANCE DIRECTIVE DISCUSSION [facility] Start: 08-21-2022 DEPRESSION ASSESSMENT DEPRESSION ASSESSMENT [facility] Start: 06-08-2022 Procedure [facility] Work Phone: Start: 05-27-2022 COVID-19 VACCINE (5 - Booster for Moderna series) COVID-19 VACCINE (5 - Booster for Moderna series) [facility] Start: 05-27-2022 COVID-19 Vaccine (5 - Moderna series) COVID-19 Vaccine (5 - Moderna series) [facility] Start: 04-26-2022 End: 04-26-2022 Patient encounter procedure 04/26/2022 Appointment Vascular Lab Lexi Merino MD [address] [place] [id number] [facility] Start: 04-21-2022 Influenza vaccination [facility] Start: 03-07-2022 [facility] Work Phone: Start: 12-23-2021 Nasopharyngeal Culture Nasopharyngeal Culture [facility] Work Phone: Start: 12-04-2021 COVID-19 Vaccine (4 - Booster for Moderna series) COVID-19 Vaccine (4 - Booster for Moderna series) [facility] Start: 08-21-2021 ADVANCE DIRECTIVE DISCUSSION ADVANCE DIRECTIVE DISCUSSION [facility] Start: 06-02-2021 End: 06-02-2021 Patient encounter procedure 06/02/2021 Office Visit Pulmonology Matheus Hoover, SHUTTLE DRIVER - RN HEMODIALYSIS [address] [address] [phone] [facility] Start: 04-21-2021 Influenza vaccination [facility] Work Phone: Start: 03-12-2021 Screening for osteoporosis Bone Density Scan [facility] Start: 12-10-2020 COVID-19 Vaccine (2 - Moderna 2-dose series) COVID-19 Vaccine (2 - Moderna 2-dose series) [facility] Work Phone: Start: 04-21-2020 Influenza vaccination [facility] [place] [place] Start: 02-11-2020 End: 02-11-2020 [facility] Start: 12-13-2019 Creatinine measurement Creatinine [facility] [place] [place] Start: 12-13-2019 Potassium monitoring Potassium monitoring [place], [place] Start: 02-10-2019 Annual Wellness Visit (AWV) Annual Wellness Visit (AWV) [place], [place] Start: 2016 RSV Immunization for Adults (1 - 1-dose 75+ series) RSV Immunization for Adults (1 - 1-dose 75+ series) [facility] Start: 2016 RSV Vaccine (1 - 1-dose 75+ series) RSV Vaccine (1 - 1-dose 75+ series) [facility] Start: 2006 BONE DENSITY BONE DENSITY [facility] Start: 2006 Bone Density Screening Bone Density Screening [facility] Start: 2006 Pneumococcal 65+ years Vaccine (1 of 1 - PPSV23) Pneumococcal 65+ years Vaccine (1 of 1 - PPSV23) [place] Start: 2006 PNEUMOCOCCAL: 65+ (1 - PCV) PNEUMOCOCCAL: 65+ (1 - PCV) [facility] Start: 2006 Screening for osteoporosis Bone Density Screening [facility] Start: 2001 RSV Immunization aged 60 or older (1 - 1-dose 60+ series) RSV Immunization aged 60 or older (1 - 1-dose 60+ series) [facility] Start: 2001 RSV Vaccine (1 - 1-dose 60+ series) RSV Vaccine (1 - 1-dose 60+ series) [facility] Start: 1991 Shingles Vaccine (1 of 2) Shingles Vaccine (1 of 2) [facility] Start: 1991 SHINGRIX VACCINE (1 of 2) SHINGRIX VACCINE (1 of 2) [facility] Start: 1991 Zoster Vaccines (1 of 2) Zoster Vaccines (1 of 2) [facility] Start: 1960 DTaP/Tdap/Td vaccine (1 - Tdap) DTaP/Tdap/Td vaccine (1 - Tdap) [facility] Start: 1960 DTaP/Tdap/Td Vaccines (1 - Tdap) DTaP/Tdap/Td Vaccines (1 - Tdap) [facility] Start: 1960 Pneumococcal Vaccine: 50+ (1 of 2 - PCV) Pneumococcal Vaccine: 50+ (1 of 2 - PCV) [facility] Start: 1960 Pneumococcal Vaccine: 50+ Years (1 of 2 - PCV) Pneumococcal Vaccine: 50+ Years (1 of 2 - PCV) [facility] Start: 1960 SHINGRIX VACCINE (1 of 2) SHINGRIX VACCINE (1 of 2) [facility] Start: 1960 Urine microalbumin profile [facility] Start: 1959 Diabetes mellitus screening Diabetes Screening [facility] Start: 1959 SPIROMETRY SPIROMETRY [facility] Start: 1957 COVID-19 Vaccine (1) COVID-19 Vaccine (1) [facility] Work Phone: Start: 1953 COVID-19 Vaccine (1) COVID-19 Vaccine (1) [facility] Work Phone: Start: 1953 Depression Monitoring Depression Monitoring [facility] Start: 1953 Depression Screen Depression Screen [facility] Start: 1953 Depression Screening Depression Screening [facility] Start: 1947 Pneumococcal 65+ years Vaccine (1 - PCV) Pneumococcal 65+ years Vaccine (1 - PCV) [facility] Start: 1947 Pneumococcal Vaccine: 65+ (1 - PCV) Pneumococcal Vaccine: 65+ (1 - PCV) [facility] Start: 1947 Pneumococcal Vaccine: 65+ (1 of 2 - PCV) Pneumococcal Vaccine: 65+ (1 of 2 - PCV) [facility] Start: 1947 Pneumococcal Vaccine: 65+ Years (1 - PCV) Pneumococcal Vaccine: 65+ Years (1 - PCV) [facility] Start: 1947 Pneumococcal Vaccine: 65+ Years (1 of 2 - PCV) Pneumococcal Vaccine: 65+ Years (1 of 2 - PCV) [facility] Start: 1947 PNEUMOCOCCAL: 65+ (1 - PCV) PNEUMOCOCCAL: 65+ (1 - PCV) [facility] Start: 1946 COVID-19 Vaccine (1) COVID-19 Vaccine (1) [facility] Start: 1941 COVID-19 VACCINE (#1) COVID-19 VACCINE (#1) [facility] Start: 1941 Annual Wellness Visit (AWV) Annual Wellness Visit (AWV) [facility] Start: 1941 Creatinine measurement Creatinine Level [facility] Start: 1941 Echocardiography Echocardiogram [facility] Start: 1941 Hepatitis B Vaccines (1 of 3 - 3-dose series) Hepatitis B Vaccines (1 of 3 - 3-dose series) [facility] Start: 1941 Lipid panel Lipid Panel [facility] Start: 1941 Medicare Advantage Annual Wellness Visit (AWV) Medicare Advantage Annual Wellness Visit (AWV) [facility] Start: 1941 Potassium measurement Potassium Level [facility] Start: 1941 Screening for osteoporosis Bone Density Scan [facility] Acid fast bacilli culture [facility] Work Phone: Anaerobic Culture Anaerobic Culture [facility] Work Phone: Anion gap in Serum o r Plasma [facility] Bacteria identified in Unspecified specimen by Anaerobe culture [facility] Work Phone: Bacterial culture Body Fluid Culture [facility] Work Phone: Basic metabolic 2008 panel with ionized calcium - Serum or Plasma [facility] Bilirubin measuremen t, urine [facility] BUN/Creatinine ratio [facility] Calcium [Mass/volume ] in Serum or Plasma [facility] Carbon dioxide, tota l [Moles/volume] in Central venous blood [facility] Complete PFT study Complete PFT study PFT Routine Chronic obstructive pulmonary disease, unspecified COPD type (HCC) 10/14/2022 10:20 AM EST [facility] Work Phone: COVID & INFLUENZA A/ B & RSV NAAT, ROUTINE COVID & INFLUENZA A/B & RSV NAAT, ROUTINE Microbiology Routine URI, acute 11/26/2023 3:15 PM EDT [facility] Work Phone: Creatinine [Mass/vol ume] in Serum or Plasma [facility] End: 06-20-2024 Ct abdomen & pelvis w/contrast material CT ABD/PEL W IVCON Radiology Routine BRBPR (bright red blood per rectum) Chronic constipation Abnormal weight loss Abdominal distension (gaseous) Other constipation Nausea 1 Occurrences starting 05/22/2023 until 06/20/2024 [facility] Work Phone: Comment on above: 1 Occurrences starting 05/22/2023 until 06/20/2024 End: 05-17-2021 CT CHEST W CONTRAST CT CHEST W CONTRAST Imaging Routine Once for 1 Occurrences starting 05/17/2021 until 05/17/2021 [facility] Work [facility]: Comment on above: Once for 1 Occurrences starting 05/17/20 21 until 05/17/2021 CT CHEST W CONTRAST CT CHEST W C ONTRAST Imaging Routine 05/17/2021 2:50 PM EDT [facility] Work Phone: End: 01-24-2020 CT CHEST WO CONTRAST CT CHEST WO CONTRAST Imaging Routine Once for 1 Occurrences starting 01/24/2020 until 01/24/2020 [facility]: Once for 1 Occurrences starting 01/24/20 20 until 01/24/2020 CT CHEST WO CONTRAST CT CHEST WO CONTRAST Imaging Routine 01/24/2020 11:18 AM EDT [facility] End: 01-[facility]-2025 CT Chest WO contrast CT CHEST WO IVCON Radiology Routine 1 Occurrences starting 12/28/2023 until 01/26/2025 [facility] Work Phone: Comment on above: 1 Occurrences starting 12/28/2023 until 01/26/2025 CT Chest WO contrast CT CHEST WO IVCON Radiology Routine 01/19/2024 10:56 AM EDT [facility] Work Phone: CT Chest WO contrast CT CHEST WO IVCON Radiology Routine Lung nodules Ground glass opacity present on imaging of lung 09/12/2024 11:48 AM EST [facility] Work Phone: Folate [Moles/volume ] in Serum or Plasma [facility] Glucose [Mass/volume ] in Serum or Plasma [facility] Hemoglobin [Presence ] in Urine [facility] Influenza virus A an d B RNA and SARS-CoV-2 (COVID-19) N gene panel - Respiratory specimen by MATY with probe detection COVID WITH FLUA+B, ROUTINE Microbiology Routine Viral URI with cough Ordered: 07/11/2022 [facility] Work Phone: Comment on above: Ordered: 07/11/2022 Lactic acid measurement [facility] Magnesium measurement [facility] Measurement of keton es in urine using dipstick [facility] Measurement of renal function [facility] Microscopic urinalysis [facility] End: 08-09-2025 MR Biliary ducts and Pancreatic duct WO and W contrast IV MRI PANC/MARCK WO/W IVCON Radiology Routine Pancreatic cyst 1 Occurrences starting 07/10/2024 until 08/09/2025 [facility] Work Phone: Comment on above: 1 Occurrences starting 07/10/2024 until 08/09/2025 End: 08-09-2025 MR Unspecified body region 3D post processing MRI 3D POST PROCESSING Radiology Routine Pancreatic cyst 1 Occurrences starting 07/10/2024 until 08/09/2025 [facility] Comment on above: 1 Occurrences starting 07/10/2024 until 08/09/2025 MRI 3D POST PROCESSING MRI 3D PO ST PROCESSING Radiology Routine Pancreatic cyst 07/20/2023 12:16 PM EST [facility] Work Phone: Mri abdomen w/o & w/contrast material MRI PANC/MARCK WO/W IVCON Radiology Routine Pancreatic cyst 07/20/2023 12:16 PM EST [facility] Work Phone: Mycobacterium sp identified in Unspecified specimen by Organism specific culture [facility] Work Phone: OUTSIDE PROCEDURE SCAN OUTSIDE P ROCEDURE SCAN Procedures Ordered: 02/20/2023 [facility] Comment on above: Ordered: 02/20/2023 OUTSIDE PROCEDURE SCAN OUTSIDE P ROCEDURE SCAN Procedures Ordered: 05/24/2023 [facility] Comment on above: Ordered: 05/24/2023 Patient Education [facility] Work Phone: Patient referral [facility] Work Phone: pH of Urine [facility] Potassium measurement [facility] Procedure [facility] Work Phone: RAPID STREP TEST B/O RAPID STREP TEST B/O Lab Routine URI, acute Ordered: 11/26/2023 [facility] Work Phone: Comment on above: Ordered: 11/26/2023 Serum chloride measurement [facility] Serum Electrophoresis Serum Elec trophoresis Lab Routine Age-related osteoporosis without current pathological fracture Postmenopausal History of fragility fracture 01/23/2025 10:14 AM EDT [facility] Sodium measurement [facility] Specific gravity of Urine [facility] Urea nitrogen [Mass/volume] in Serum or Plasma [facility] Urine blood test [facility] Urine dipstick for glucose [facility] Urine dipstick for leukocyte esterase [facility] Urine dipstick for nitrite [facility] Urine dipstick for protein [facility] Urine examination [facility] Urine microscopy: epithelial cells [facility] Urine Microscopy: wh ite cells [facility] Urobilinogen [Presen ce] in Urine [facility] End: 08-09-2025 US Abdomen RUQ US ABD RIGHT UPPER QUADRANT Radiology STAT Epigastric pain 1 Occurrences starting 07/10/2024 until 08/09/2025 [facility] Comment on above: 1 Occurrences starting 07/10/2024 until 08/09/2025 End: 04-20-2022 XR KNEE RIGHT (MIN 4 VIEWS) [employer] Work Phone: Comment on above: Once for 1 Occurrences starting 04/20/20 22 until 04/20/2022 End: 06-28-2025 XR Ribs - left 2 Views XR RIBS 2V AP/OBL LEFT Radiology Routine Closed fracture of multiple ribs of left side, sequela Chronic left-sided thoracic back pain 1 Occurrences starting 05/29/2024 until 06/28/2025 [facility] Comment on above: 1 Occurrences starting 05/29/2024 until 06/28/2025 XR Ribs - left 2 Views XR RIBS 2 V AP/OBL LEFT Radiology Routine Closed fracture of multiple ribs of left side, sequela Chronic left-sided thoracic back pain 05/29/2024 4:43 PM EDT [facility] End: 06-28-2025 XR Thoracic spine AP and Lateral and Swimmers XR THORACIC GENERAL 3V AP/LAT/SWIMMERS Radiology Routine Closed fracture of multiple ribs of left side, sequela Chronic left-sided thoracic back pain 1 Occurrences starting 05/29/2024 until 06/28/2025 [facility] Work Phone: Comment on above: 1 Occurrences starting 05/29/2024 until 06/28/2025 XR Thoracic spine AP and Lateral and Swimmers XR THORACIC GENERAL 3V AP/LAT/SWIMMERS Radiology Routine Closed fracture of multiple ribs of left side, sequela Chronic left-sided thoracic back pain 05/29/2024 4:43 PM EDT [facility] Immunizations Immunization Date Immunization Notes Care Provider [facility] 05-13-2025 influenza, seasonal, injectable, preservative free Dr. Marty Guthrie MD Work Phone: [facility] 09-16-2024 influenza, high dose seasonal, preservative-free NISA GUTHRIE Work Phone: [facility] 09-16-2024 Pneumococcal Vaccine PCV20 (Prevnar 20) NISA GUTHRIE Work Phone: [facility] 09-16-2024 influenza virus vaccine, unspecified formulation Ana Meza SHUTTLE DRIVER.RN HEMODIALYSIS Work Phone: [facility] 06-25-2023 Covid (Spikevax) NISA CRUZ JOSH Work Phone: [facility] 06-25-2023 influenza (aIIV4) vaccine, age 65+ yr, quadrivalent, PF (FLUAD QUAD) Giselle Elizondo MD Work Phone: [facility] 06-25-2023 influenza virus vaccine, unspecified formulation Giselle Elizondo MD Work Phone: [facility] 10-04-2022 COVID-19 booster vaccine, age 12+ yr, bivalent (MODERNA) Giselle Elizondo MD Work Phone: [facility] 06-04-2022 influenza (aIIV4) vaccine, age 65+ yr, quadrivalent, PF (FLUAD QUADRIVALENT) Giselle Elizondo MD Work Phone: [facility] 06-04-2022 influenza virus vaccine, unspecified formulation [facility] 08-05-2021 SARS-CoV-2 (COVID-19 ) mRNA-1273 vaccine RUBY MARIE SHUTTLE DRIVER-RN HEMODIALYSIS [facility] 06-23-2021 influenza nasal, unspecified formulation Giselle Elizondo MD Work Phone: [facility] 06-23-2021 influenza virus vaccine, unspecified formulation RUBY MARIE SHUTTLE DRIVER-RN HEMODIALYSIS [facility] 06-23-2021 influenza, high-dose , quadrivalent vaccine (FLUZONE HIGH DOSE QUADRIVALENT) Giselle Elizondo MD Work Phone: [facility] 12-10-2020 SARS-CoV-2 (COVID-19 ) mRNA-1273 vaccine RUBY MARIE SHUTTLE DRIVER-RN HEMODIALYSIS [facility] Comment on above: Result Comment: 2021: [id number] 11-12-2020 SARS-CoV-2 (COVID-19 ) mRNA-1273 vaccine RUBY GARYFIELD SHUTTLE DRIVER-RN HEMODIALYSIS [facility] Comment on above: Result Comment: 2021: [id number] 05-14-2020 unknown vaccine or immune globulin Giselle Elizondo MD Work Phone: [facility] 05-18-2019 influenza nasal, unspecified formulation Giselle Elizondo MD Work Phone: [facility] 05-18-2019 influenza virus vaccine, unspecified formulation RUBY MARIE SHUTTLE DRIVER-RN HEMODIALYSIS [facility] 05-18-2019 influenza, injectabl e, quadrivalent, preservative free Giselle Elizondo MD Work Phone: [facility] Payers Date Payer Category Payer Unknown [id number] 2024 Medicaid [id number] 2024 Self-pay [id number] 2024 Medicare (Managed Care) 1.2. [id number] 2024 Medicare HMO [id number] [id number]. [id number] 2024 Unknown [id number] 2020 Medicare [id number]. 1.13.159.2. [id number] 2017 Medicaid [id number]. 1.13.680.2. [id number] 2016 Private Health Insurance [id number] 2014 Medicare UHC MEDICARE UHC MEDICARE COMPLETE xxxxxxxxx 2014-Present xxxxxxxxx [id number] 2014 Medicare [id number]. [id number] 1941 Unknown [id number] 2.16.840.1.378576.3.579.2. 594 Medicare [id number] Private Health Insurance Unknown [id number] 2.16.840.1.925442.3.579.2. 462 Unknown [id number] 2.16.840.1.497644.3.579.2. 462 Unknown [id number] 2.16.840.1.397880.3.579.2. 462 Unknown [id number] 2.16.840.1.481643.3.579.2. 462 Unknown [id number] 2.16.840.1.345337.3.579.2. 462 Unknown [id number] 2.16.840.1.380488.3.579.2. 462 Unknown [id number] 2.16.840.1.084961.3.579.2. 462 Unknown [id number] 2.16.840.1.152002.3.579.2. 462 Unknown [id number] 2.16.840.1.477672.3.579.2. 462 Unknown [id number] 2.16.840.1.322512.3.579.2. 462 Unknown [id number] 2.16.840.1.132227.3.579.2. 462 Unknown [id number] 2.16.840.1.995426.3.579.2. 462 Unknown [id number] 2.16.840.1.809127.3.579.2. 462 Unknown [id number] 2.16.840.1.252450.3.579.2. 462 Unknown [id number] 2.16.840.1.592253.3.579.2. 462 Unknown [id number] 2.16.840.1.767084.3.579.2. 462 Unknown [id number] 2.16.840.1.998449.3.579.2. 462 Unknown [id number] 2.840.1.931382.3.579.2. 462 Unknown [id number] 2.16.840.1.247446.3.579.2. 462 Unknown [id number] 2.840.1.456886.3.579.2. 462 Unknown [id number] 2.840.1.850981.3.579.2. 462 Unknown [id number] 2.840.1.579681.3.579.2. 462 Unknown [id number] 2.840.1.896940.3.579.2. 462 Unknown [id number] 2.840.1.606708.3.579.2. 462 Unknown [id number] 2.840.1.393768.3.579.2. 462 Unknown [id number] 2.16840.1.012069.3.579.2. 462 Unknown [id number] 2.16840.1.497497.3.579.2. 462 Unknown [id number] 2.16840.1.829635.3.579.2. 462 Unknown [id number] 2.16.840.1.112649.3.579.2. 462 Unknown [id number] 2.16.840.1.462664.3.579.2. 462 Unknown [id number] 2.16.840.1.177978.3.579.2. 462 Unknown [id number] 2.16.840.1.688442.3.579.2. 462 Unknown [id number] 2.16.840.1.898659.3.579.2. 462 Unknown [id number] 2.16.840.1.099326.3.579.2. 462 Unknown [id number] 2.16.840.1.148459.3.579.2. 462 Unknown [id number] 2.16.840.1.583246.3.579.2. 462 Unknown [id number] 2.16.840.1.506005.3.579.2. 462 Unknown [id number] 2.16.840.1.189596.3.579.2. 462 Unknown [id number] 2.16.840.1.729959.3.579.2. 462 Unknown [id number] 2.16840.1.529121.3.579.2. 462 Unknown [id number] 2.16840.1.691383.3.579.2. 462 Unknown [id number] 2.16.840.1.183858.3.579.2. 462 Unknown [id number] 2.16.840.1.645939.3.579.2. 462 Unknown [id number] 2.16840.1.780048.3.579.2. 462 Unknown [id number] 2.16.840.1.937030.3.579.2. 462 Unknown [id number] 2.16.840.1.659660.3.579.2. 462 Unknown [id number] 2.16.840.1.949050.3.579.2. 462 Unknown [id number] 2.16.840.1.254124.3.579.2. 462 Unknown [id number] 2.16.840.1.262781.3.579.2. 462 Unknown [id number] 2.16.840.1.303255.3.579.2. 462 Unknown [id number] 2.16.840.1.593049.3.579.2. 462 Unknown [id number] 2.16.840.1.825752.3.579.2. 462 Unknown [id number] 2.16.840.1.453929.3.579.2. 462 Unknown [id number] 2.16.840.1.137124.3.579.2. 462 Unknown [id number] Unknown [id number] 462 Unknown [id number] 462 Unknown [id number] 462 Unknown [id number] 462 Unknown [id number] 462 Unknown [id number] 462 Social History Date Type Detail Facility Start: 09-11-2018 End: 06-07-2024 Tobacco smoking status NHIS Former smoker [place] Start: 09-22-1958 End: 05-29-1976 History of tobacco use Current smoker [place] Start: 09-22-1958 End: 05-29-1976 History of tobacco use Cigarette Smoker [place] Start: 09-11-2018 End: 04-23-2025 Cigarettes smoked current (pack per day) - Reported [facility] Work Phone: Start: 09-11-2018 End: 01-23-2025 Alcohol intake Current non-drinker of alcohol (finding) [place] Start: 1940 Sex Assigned At Not on file M [facility] [employer] Start: 09-11-2018 End: 06-07-2024 Tobacco use and exposure [facility] Start: 06-26-2021 Tobacco smoking stat us NHIS Unknown if ever smoked [facility] Start: 1940 Sex Assigned At Female W [facility] Start: 04-29-2022 End: 05-09-2022 Exposure to SARS-CoV-2 (event) Unable to assess [facility] Start: 07-01-2022 End: 02-20-2023 Exposure to SARS-CoV-2 (event) Not sure [facility] Start: 10-27-2022 End: 04-23-2025 Tobacco use panel [facility] Work Phone: Start: 07-22-2012 Adult Depression Screening Assessment 2 [facility] Work Phone: Start: 05-22-2023 End: 2025 Alcohol intake Ex-drinker (finding) [facility] Start: 03-21-2022 End: 11-17-2024 Sex Female (finding) [facility] Within the last year , have you been afraid of your partner or ex-partner? No [facility] How often to you hav e a drink containing alcohol? Never [facility] NEGATED: Highlighted row Not [facility] Medical Equipment Procedure Code Equipment Code Equipment Origin al Text Equipment Identifier Dates Kyphoplasty [id number] FDA Start: 12-30-2024 Use as instructed [id number] Start: 04-03-2025 Goals Date Patient Goal Desired Activity /State Functional Status Date Assessment Result Facility 05-16-2025 Functional status Activity Abili ty With Assist of 1 [facility] Work Phone: 05-13-2025 Functional status Ambulates [facility] Work Phone: 01-01-2025 Functional status Chair [facility] Work Phone: 01-01-2025 Functional status Standby Assist [facility] Work Phone: 12-31-2024 Functional status Rolling Walker [facility] Work Phone: 11-24-2024 Functional status Ambulates;Chair [facility] Work Phone: [facility] Mental Status Date Assessment Result Facility 05-16-2025 Cognitive function Voice/Name [facility] Work Phone: 01-01-2025 Cognitive function Voice/Name [facility] Work Phone: 11-23-2024 Cognitive function Voice/Name [facility] Work Phone: Clinical Notes 11-02-2021 to 05-19-2025 Telephone Encounter - [facility] - 05/19/2025 9:50 AM EDTTelephone Encounter - [facility] - 05/19/2025 9:50 AM EDTTelephone Encounter - Wili [facility] - 05/16/2025 1:57 PM EDT Note Date & Type Note Facility 05-19-2025 Telephone encounter Note Form atting of this note might be different from the original. Lesli called in today. Upon attempting to schedule delivery of Forteo, Lesli says she refuses daily injections and she was not willing to discuss with me further. Please advise on how you would like to proceed, thank you! [facility] 05-19-2025 Miscellaneous Notes Formattin g of this note might be different from the original. Lesli called in today. Upon attempting to schedule delivery of Forteo, Lesli says she refuses daily injections and she was not willing to discuss with me further. Please advise on how you would like to proceed, thank you! [facility] has been unable to reach Lesli after 4 attempts. If you are able to reach her, please have her call us at [phone]. If we have not heard from her by 05/23, we will put her on hold in our system. documented in this encounter [facility] 05-16-2025 Telephone encounter Note Form atting of this note might be different from the original. [facility] has been unable to reach Lesli after 4 attempts. If you are able to reach her, please have her call us at [phone]. If we have not heard from her by 05/23, we will put her on hold in our system. [facility] 05-16-2025 Discharge summary Note Date/Time May 16, 2025 11:47am [facility] Medical Records Department [address] [place] [id number] Discharge Summary 05/15/25 1125 MR#: [id number] Acct: [id number] Name: LESLI ROSALES Rep #:[id number] : 1940 85 From: Keerthi Son DO PCP: Dr. Marty Guthrie MD Status:ADM I N Location: [place] [address] Providers Date of Admission: 04/29/25 Date of Discharge: 05/16/25 Primary Care Physician: Dr. Marty Guthrie MD Consultations 04/30/25 11:19 Consult: Plastic Surgery Routine Consulting Provider: Jack Plasencia Reason for Consult: Hematoma/infected right knee EMERGENT Consult: No Notified: Yes Date Notified: 04/30/25 Time Notified: 11:19 Method of Notification: Text 04/30/25 12:03 Consult: Pain Management Routine Consulting Provider: Daniel Hall Reason for Consult: pain management EMERGENT Consult: No Notified: Yes Date Notified: 04/30/25 Time Notified: 12:03 Method of Notification: Answering Service Reason For Visit: MULTIPLE TRAUMAS Diagnosis Discharge Diagnosis (1) Physical debility: Status: Acute Code(s): R53.81 - Other malaise (2) Fall: Status: Acute Code(s): W19.XXXA - Unspecified fall, initial encounter Qualifiers: Encounter type: subsequent encounter Qualified Code(s): W19.XXXD - Unspecified fall, subsequent encounter Plan: Ground level fall due to "dizziness". (3) Subdural hematoma: Status: Acute Code(s): S06.5XAA - Traumatic subdural hemorrhage with loss of consciousness status unknown, initial encounter Plan: No intervention required. (4) Multiple rib fractures: Status: Acute Code(s): S22.49XA - Multiple fractures of ribs, unspecified side, initial encounter for closed fracture Qualifiers: Encounter type: subsequent encounter Fracture type: closed Laterality:bilateral Plan: Multiple BL non-displaced rib fractures. (5) Traumatic hematoma of right knee: Status: Resolved Code(s): S80.01XA - Contusion of right knee, initial encounter Qualifiers: Encounter type: subsequent encounter Qualified Code(s): S80.01XD - Contusion of right knee, subsequent encounter Plan: Hematoma with abrasion over the R knee. Abrasion was a black eschar at the timeshe arrived on rehab. The eschar was removed by Dr. Plasencia at the bedside and hematoma was manually evacuated. Wet to dry dressings were initiated. (6) Cellulitis: Status: Resolved Code(s): L03.90 - Cellulitis, unspecified Qualifiers: Laterality: right Site of cellulitis: extremity Site of cellulitis of extremity: lower extremity Qualified Code(s): L03.115 - Cellulitis of right lower limb Plan: Fluid from the right knee hematoma grew Staphylococcus hominis hominis and Staphylococcus Caprae. The Staphylococcus hominis hominis was resistant to clindamycin, oxacillin and tetracycline. There was positive inducible clindamycin resistance. She was initially placed on Keflex and when the culturewas resulted she was transition to doxycycline. (7) Vertebral compression fracture: Status: Acute Code(s): M48.50XA - Collapsed vertebra, not elsewhere classified, site unspecified, initial encounter for fracture Qualifiers: Encounter type: subsequent encounter Fracture of vertebra location: lumbar Lumbar vertebra fracture level: L1 Plan: She had a vertebroplasty of L2 in the past done by Dr. Malagon. She was also known to have a 25% loss of height of the body of L3. On a CT scan of the chestdone on 04/22/2025 there were compression fractures of T8 and L1 which were new. (8) Osteoporosis: Status: Chronic Code(s): M81.0 - Age-related osteoporosis without current pathological fracture Qualifiers: Encounter type: subsequent encounter Fracture healing: with delayed healing Osteoporosis type: age-related Presence of current pathological fracture: with current pathological fracture Qualified Code(s): M80.00XG - Age-related osteoporosis with current pathological fracture, unspecified site, subsequent encounter for fracture with delayed healing Plan: Was on no treatment other than vitamin D supplementation when she arrived on rehab. She had a DEXA scan and February 2025 that showed a T-score of -2.6 at L1, L3-L4. Femoral neck T-score was -3.9 and the total hip T-score was -4.1 and this is consistent with severe osteoporosis. There had been a 32.1% decrease inbone mineral density since the prior examination. She was seen by a doctor who treats osteoporosis and she was given a RX for Forteo. Her insurance denied payment and so she was never started on treatment. I recommended she follow up with Dr. Kendell Liang post DC from rehab and she was agreeable. A referral was sent to Dr. Liang and her office will be calling the patient to set up an appt following DC from rehab. (9) Exercise hypoxemia: Status: Chronic Code(s): R09.02 - Hypoxemia Plan: Oxygen saturation on a 2 L/min nasal cannula is appropriate when exercising. (10) Chronic anticoagulation: Status: Inactive Code(s): Z79.01 - 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 Plan: She was on Xarelto at the time of her fall but due to the subdural hematoma Xarelto was discontinued. She has had some falls over the past couple years. Question whether the risk outweighs the benefit at this drug at this point. Will defer that decision to neurosurgery/neurology. (11) Paroxysmal atrial fibrillation: Status: Chronic Code(s): I48.0 - Paroxysmal atrial fibrillation (12) Psoriatic arthritis: Status: Chronic Code(s): L40.50 - Arthropathic psoriasis, unspecified (13) Vitamin D deficiency: Status: Chronic Code(s): E55.9 - Vitamin D deficiency, unspecified Plan: Lesli was taking 50 mcg of cholecalciferol daily at home and states that she is very compliant. The vitamin D level was checked on 04/30/2025 and was low at 27.6. She was on cholecalciferol 50 mcg since arrival on rehab.......it was rechecked on 05/10/2025 and was still low at 25.6. Vitamin D was increased to 50mcg BID. She will need a follow up Vitamin D level checked in 4 weeks. (14) Mild cognitive impairment of uncertain or unknown etiology: Status: Chronic Code(s): G31.84 - Mild cognitive impairment of uncertain or unknown etiology (15) Pulmonary nodule 1 cm or greater in diameter: Status: Chronic Code(s): R91.1 - Solitary pulmonary nodule Plan: the nodule is not solitary. There are calcified granulomas in the R lung. The largest is along the R minor fissure and on the recent CT chest on 04/22/25 it measured 15 mm. The measurement in October of 2024 was 1.4 cm X 1.1 cm. she willcontinue to follow with pulmonary. (16) Left shoulder pain: Status: Acute Code(s): M25.512 - Pain in left shoulder Qualifiers: Chronicity: acute Qualified Code(s): M25.512 - Pain in left shoulder Plan: No fracture or dislocation of the L shoulder on plain XRAY. She has seen Dr. Giron in the past for a R shoulder replacement and she will follow up with Dr. Giron as needed. (17) Pulmonary hypertension: Status: Chronic Code(s): I27.20 - Pulmonary hypertension, unspecified Plan: The right ventricular systolic pressure in October 2024 on a transthoracic echocardiogram was estimated at 36. (18) Venous insufficiency: Status: Chronic Code(s): I87.2 - Venous insufficiency (chronic) (peripheral) (19) Hypoxemia associated with sleep: Status: Chronic Code(s): G47.36 - Sleep related hypoventilation in conditions classified elsewhere Plan: Abnormal overnight trending pulse ox. 62% of the time that she was monitored the pulse ox ranged from 80 to 89%. We have been applying O2 at 2 LPM anytime she has been sleeping and the pulse ox on oxygen has been consistently > 90. Plan 1. DC home 2. [facility] [place] 3. Son, Nathaniel, will change the dressings on the R knee. He came in for education with nursing prior to DC. 4. She will follow up with Dr. Guthrie for primary care. She will follow up withDr. Hall for pain management. She has a appt with neurology scheduled for 05/21......will defer restarting AC to neurology. She will follow up with Dr. Giron PRTl for left shoulder pain. She will continue to follow up with the casting cleaner she has been seeing. She has an appt with Dr. Plasencia for Monday [facility]. She will follow up with Dr. Kendell Liang for management of osteoporosis........will continue the Fosamax at [place] and Calcium/Vitamin D. I think she would benefit from Prolia or Reclast. Insurance did not approve Forteo. Dr. Liang's office will call her to schedule an appt after she has been discharged from rehab. 5. She will need a Vitamin D level done in another month to makes sure the Vitamin D level is WNL after increasing the Cholecalciferol to 50 mcg BID. 6. Continue Lasix and Aldactone at [place]. BMP in 1 week. Medications at Discharge Home Medications atenolol 25 mg tablet 25 mg PO DAILY Atrial fibrillation 06/26/21 folic acid 1 mg tablet 1 mg PO DAILY supplement 06/26/21 albuterol sulfate 90 mcg/actuation aerosol inhaler 2 puff inhalation Q6H PRN dyspnea 11/18/24 tiotropium bromide 18 mcg capsule with inhalation device (Spiriva with HandiHaler) 1 cap inhalation DAILY PRN shortness of breath 11/18/24 risankizumab-rzaa 150 mg/mL subcutaneous pen injector (Skyrizi) 150 mg subcut Q90D . 12/24/24 baclofen 5 mg tablet 5 mg PO QHS pain 04/22/25 empagliflozin 10 mg tablet (Jardiance) 10 mg PO DAILY glucose 04/29/25 gabapentin 100 mg capsule 100 mg PO Q12H nerve pain 04/29/25 melatonin 3 mg capsule 3 mg PO QHS sleep 04/29/25 mometasone-formoterol HFA 100 mcg-5 mcg/actuation aerosol inhaler (Dulera) 2 inhinhalation BID sob 04/29/25 OXYGEN - Supplemental ([facility] INFORMATIONAL USE ONLY) 09/11/25 alendronate 70 mg tablet 70 mg PO Q7D@0700 #4 tabs 05/15/25 buprenorphine 10 mcg/hour weekly transdermal patch 1 patch transdermal Q7D 1 month #4 ea 05/15/25 furosemide 40 mg tablet (Lasix) 40 mg PO DAILY #30 tabs 05/15/25 oxycodone-acetaminophen 5 mg-325 mg tablet 1 tab PO TID PRN pain 4-10 1 week #21tabs 05/15/25 pantoprazole 20 mg tablet,delayed release 20 mg PO BID #60 tabs 05/15/25 spironolactone 25 mg tablet 12.5 mg (1/2 x 25 mg) PO DAILY #30 tabs 05/15/25 cholecalciferol (vitamin D3) 50 mcg (2,000 unit) capsule 50 mcg PO BID #60 caps 05/16/25 potassium chloride 10 mEq capsule,extended release 10 meq PO DAILY #30 caps 05/16/25 Hospital Course Operations None Procedures None Summary of Care Provided Minutes Spent on Discharge: 55 Hospital Course: LESLI ROSALES, is a 85 YO F with a PMH of hypertension, PAF, chronic anticoagulation with Xarelto, chronic diastolic congestive heart failure with preserved ejection fraction of 60%, biatrial enlargement (left greater than right), tricuspid regurgitation, history of tobacco dependence, COPD, anxiety/depression, GERD, psoriatic arthritis (on Skyrizi every 3 months), history of shingles, history of a proximal right humeral fracture, osteoporosis (on no medication at admission to rehab except Vitamin D), chronic pain syndrome(follows with Dr. Hall for pain management), CONCEPCION and thoracic/lumbar compression fractures (+ hx of kyphoplasty of L2) who presented to the emergencydepartment at [facility] on 04/22/2025 complaining of feeling dizzy "all day long". The dizziness led to a fall and she was complaining of left shoulder pain. CT scan of the brain showed a subdural hemorrhage which was6 mm in thickness with no mass effect. CT of the chest showed multiple bilateral nondisplaced rib fractures. There was cardiomegaly present and small bilateral pleural effusions with increased interstitial changes especially in the bases of the lungs. There were multiple vertebral compression fractures including T8, L1 and L2 and L3. T8 and L1 are acute and L2 and L3 are old. Left hand x-ray showed a probable nondisplaced fracture of the left scaphoid but, when seen by ortho at previous hospital they did not feel there was a fx present. XRAYS of the right knee showed no fracture or dislocation. There was prepatellar swelling due to a superficial hematoma. She was given K Centra and transferred to [facility] to the trauma service. Consult was obtained with neurosurgery. A repeat CT head showed improvement in the right frontal subduralhematoma and there was also interhemispheric subdural hematoma noted. No surgical intervention was indicated. Neurosurgery recommended holding Xarelto but, they were okay with Lovenox 30 mg SQ every 12 hours. No significant complications while at the previous hospital. She was transferred to the acute inpt rehab unit at [facility] on 04/29/25 for 3 hours of therapy daily to restore function/independence at or near her level prior to the fall. At presentation to rehab the R knee was noted to have a large prepatellar hematoma with a black eschar in the center. the knee was red and warm to the touch. Dr. Plasencia form plastic surgery was consulted and he made an incision overthe knee at the bedside to drain the hematoma. The eschar was excised. Cultureof the fluid was sent and grew Staphylococcus hominis hominis and StaphylococcusCaprae. She was started on Keflex. BID wet - dry dressings were ordered. The Staphylococcus hominis hominis was oxacillin resistant and had inducible clindamycin resistance. Keflex was discontinued and doxycycline 100 mg twice daily was ordered for [address] Plasencia continued to follow her while she was apt on rehab. At [place] the wound is much improved. Ecchymosis and edema had resolved and there was no discharge from the wound. There was no increased warmth to touch around the wound. She had no pain with passive or active range of motion of the knee. She is going to follow up with Dr. Plasencia [facility] post DC from rehab. Lesli's son Nathaniel came in for training priorto her DC to learn how to dress the wound. BID wet to dry dressing were continued at [facility]. The vitamin D level was checked at admission and it was low at 27.6 despitetaking 50 mcg of Cholecalciferol daily. She stated she had been compliant with this medication. We elected to leave her on 50 mcg daily and we rechecked a vitamin D level in 10 days and it was still low at 25.6. The vitamin D was increased to 50 mcg of Cholecalciferol twice daily. She was started on Fosamax 10 mg daily and had no complaint of increased heartburn. Because she has a history of GERD we wanted to increase the famotidine but her creatinine clearance is decreased and increasing the Famotidine was not an option. She wastransitioned to Protonix 20 mg BID after talking with the pharmacist. She had no adverse side effects with Fosamax and after a week she was transitioned to Fosamax 70 mg once a week. Calcium was normal and she was not started on a calcium supplement. She had been prescribed Forteo in the past because she has severe osteoporosis with pathologic fractures of her vertebrae but, insurance denied and nothing else was ever started. I think she would benefit from an immunologic and I recommended she follow-up with Dr. Kendell Liang from endocrinology to manage the osteoporosis. She continues to complain of severe pain and consult was obtained with from pain management. The Butrans patch was increased from 5 mcg to 10 mcg weekly. She was also prescribed oxycodone 5 mg every 4 hours as needed for breakthrough pain. Gabapentin 100 mg twice daily and baclofen 5 mg at bedtime were continued. She was also placed on 1 g of Tylenol every 8 hours. Pain is better than at admission and she has been taking Oxycodone 5 mg 3-4 times a day. She has multiple complaints of pain but, she has been able to do her therapy for 3 hours a day and she is sleeping well at night. She and I agreed that her pain is adequately controlled and that she will continue to follow up with Dr. Hall as an OP. She was given a RX for #4 Butrans 10 mcg patches at [place]. She was also given a prescription for Percocet 5/325 mg, #21, and will use this for breakthrough pain every 4-[address] Hall's office was notified that I gave Lesli a RX for Butrans. She has persistent complaint of left shoulder pain. X-ray at admission showed no fracture or dislocation. It is possible that due to the fall she has a rotator cuff tendinopathy/tear. She hasseen Dr. Malcom Giron in the past for a right shoulder replacement and she willfollow-up with him as needed for persistent left shoulder pain. Lesli had an exacerbation of chronic diastolic congestive heart failure while on rehab. Oral Lasix dosing was increased but this failed to resolve the problem. She was transition to IV Lasix 40 mg twice daily and had a better diuresis but developed a contraction alkalosis. She continued to have pitting edema both lower extremities and was noncompliant with elevation. Spironolactone 12.5 mg daily was added to the drug regimen. Potassiums have been low with the Lasix and in addition to the spironolactone she did receive supplemental potassium. Prior to discharge she had 2 days of bed rest with her legs elevated anytime she was not doing therapy or using the restroom. The edema of the lower extremity significantly improved with elevation. She was transition to oral Lasix 40 mg once a day and Spironolactone was continued. Shewas given a RX for calf compression wraps and told that she can get these at [facility] in [place]. We talked about the importance of Leg elevationmultiple times during her time on rehab. Lesli has oxygen as an OP which she uses PRN. The pulse ox on RA with exertion was in the 80's and we ordered oxygen supplementation at 1-2 LPM any time she was exerting herself. Pulse ox on RA at rest while awake was 90% or greater. An overnight trending pulse ox was done and was very abnormal with thepulse ox 89% or less over 60% of the time. Lesli has never complained of shortness of breath while on rehab. She has not had a cough. She had better exercise performance when wearing the oxygen. She has been sleeping well and awakens feeling rested in the AM. She is very alert during the days. Because of the lower extremity swelling and the hypoxemia we elected to do venous ultrasounds of her lower extremities and these were negative for DVT. Lesli did well with therapy and she was able to be discharged home on 05/16/25. She will have home health care at [place]. Her son Nathaniel was taught how todo the dressing changes. Nathaniel lives with Lesli and he is able to assist her. At the time of discharge she is able to do 6 sit to stand using her right upper extremity to rise at standby assist. He is able to ascend to curb steps using a front wheeled walker at contact-guard assist and she can descend with minimal assistance needed. She has ambulated up to 200 feet with a front wheel walker on various surfaces. Lesli is supervision/set up for eating and grooming. She requires minimal assistance with bathing and upper body dressing. She is supervision/set up for lower body dressing and toileting. She is standby assist for toilet transfer. She is contact-guard assist for tub/shower transfer. [facility] home health care was arranged by the social services designee prior to discharge. Home O2 was also arranged and she was instructed to wear her O2 anytime she is exerting herself and anytime she is napping or sleeping. She will follow-up with her pulmonary physician as previously scheduled postdischarge. She will need a BMP in 1 week and a vitamin D level in 1 month. She has an appointment to follow-up with neurology on 05/21/2025 and the decision to restartXarelto will be made by neurology and/or cardiology. With hx of falls the risk of AC may outweigh the benefit. She may be a candidate for a Watchman procedure. Physical Exam Const alert, oriented x3 and no apparent distress Constitutional Narrative: Talking a lot and interacting with staff. General Appearance: cooperative and well kempt HEENT HEENT Narrative: FAcial bruising has resolved. Eyes PERRL, EOMs intact bilaterally, conjunctivae normal and no scleral icterus Eyes Narrative: No discharge from the eyes and no conjunctival hemorrhage or injection of the conjunctiva. Neck supple and No nodes General: trachea midline Resp normal respiratory effort Resp Narrative: good air exchange in the bases today. Has persistent coarse crackles in both bases.....I suspect this is due to scarring/fibrosis. NO wheezing. Not tachypneic and no conversational dyspnea. Denies orthopnea. . Effort and Inspection: able to speak in complete sentences and symmetric chest movement; Negative for tachypneic Cardio no gallops and no JVD Cardio Narrative: Irregular irregular with controlled ventricular response. GI normal to inspection, nondistended, normoactive bowel sounds, soft to palpation and non-tender no CVA tenderness Back/Spine Back/Spine Narrative: No c/o back pain today. Extremity no calf tenderness Extremity Narrative: The edema in the LE's is limited to the ankles and dorsum of the foot........TheL ankle and foot have minimal edema.........it is worse in the R foot and ankle......more likely than not related to the hematoma and wound on the R knee. Skin Skin Narrative: The swelling and erythema of the right knee has resolved. There is no eschar present. There is still an opening in the skin but the base of the wound is pink and granulating. There is no purulent discharge. There is no odor. Thereis no increased warmth to touch. Rashes: no rashes Neuro oriented x3 and CN's II-XII intact bilaterally Neuro Narrative: Can move all extremities. No visual field cuts. Tongue protrudes on the midline. No facial asymmetry. Grossly normal mentation. Not somnolent. Not complaining of cephalgia. Psych mental status grossly normal, cooperative and affect normal Psych Narrative: Scored 40 out of a possible 50 on the BCAT. This is consistent with mild cognitive impairment. Weight / BMI Weight Weight: 141 lb 6 oz Body Mass Index (BMI) 27.6 ABG / Lab / Microbiology Data 05/14/25 05:40 05/15/25 07:10 Laboratory: Laboratory Results - last 24 hr 05/15/25 07:10: Sodium 143, Potassium 3.6, Chloride 104, Carbon Dioxide 22.0, Anion Gap 17 H, BUN 19, Creatinine 0.56 L, Estim Creat Clear Calc 43.55 L, Est GFR (MDRD) Non-Af 90, BUN/Creatinine Ratio 34.1 H, Glucose 104 H, Calcium 8.8 Microbiology: Microbiology 04/30/25 14:00 Wound Drainage - Aerobic & Anaerobic Swabs Gram Stain - Final 04/30/25 14:00 Wound Drainage - Aerobic & Anaerobic Swabs Wound Culture - Final Staphylococcus hominis hominis Staphylococcus caprae 04/30/25 14:00 Wound Drainage - Aerobic & Anaerobic Swabs Anaerobic Culture - Final No growth in 5 days. ABG: ABG 05/14/25 22:12 Specimen Type ART Sample Site R Radial pH 7.45 Bicarbonate Actual 37.2 H Total CO2 39 Base Excess 13 H O2 Saturation 96 O2 % 1.0 ABG pCO2 54.0 H ABG pO2 83 Cassandra Test Positive O2 Delivery Device Cannula Vent Mode Not entered Radiography Diagnostic Testing: Radiology Impression Chest X-Ray 05/14/25 13:10 IMPRESSION: Improving pleural effusions. Other findings as noted. Reading Location: [id number] Venous Doppler Study 05/14/25 13:10 Interpretation Summary Deep veins of the lower extremities are bilaterally patent and compressible segmentally. There is no evidence of deep vein thrombosis on either side. Valvular competence appears intact within the proximal deep venous systems bilaterally. The great saphenous veins appear bilaterally patent and compressible segmentally. The right popliteal vein was not visualized due to the presence of a bandage. Ordering Physician: Keerthi Son Referring Physician: Marty Guthrie Performed By: Jeanie Zamarripa RVT D/C Instructions DC O2, CPAP, BIPAP Needs Home O2 Discharge instructions: Yes Type of respiratory needs?: Oxygen Oxygen frequency: With Ambulation Oxygen liters per minute during Ambulation: 1-2 and With Sleeping Oxygen liters per minute when sleepin L DC home with Oxygen: Yes Home O2 MD Review: I have reviewed the oxygen testing, and the patient qualifies for home oxygen equipment and portability. The patient is mobile in the home and the community. Meaningful Use Info Meaningful Use Meaningful Use Diagnoses (Choose all that apply): None applicable (SDH due to a fall. ) and CHF (Acute on chronic diastolic congestive heart failure.) CHF MORALES/ARB ordered at discharge?: No Reason MORALES/ARB not ordered?: Normal EF Documented LVEF (%): 60 Discharge Plan Admission Admit Date/Time: 04/29/25 18:05 Primary Reason for Your Visit: Debility due to fall/SDH/multiple fractures Attending Provider: Keerthi Son Primary Care Provider: Marty Guthrie Consulting Providers: Jack Plasencia; Daniel Hall Instructions Patient Instructions: CVI Additional Instructions / Restrictions: 1. You will need to follow up with Dr. Hall next week for prescriptions for pain medication. 2. You are going to follow up in the wound care center with Dr. Plasencia for the wound on the R knee 3. I recommend that you follow up with Dr. Kendell Liang, semiautomatic stitcher operator, for treatment of your severe osteoporosis. Even on Vitamin D 50 mcg daily your Vitamin D level was low. We have increased the vitamin D to twice a day. Vitamin D is necessary to be able to absorb calcium from the gastrointestinal tract. Vitamin D comes from the sun........which we don't see for a good portion of the year in [place]. 4. You have chronic lung disease. Your oxygen drops with exertion and also when sleeping. You should be wearing oxygen anytime you are exerting yourself (like with walking) and anytime you are napping/sleeping. You do not have to wear the oxygen if you are just sitting in a chair. 5. You have a history of congestive heart failure. You also have varicose veins in your legs and this causes a condition called chronic venous insufficiency. Both congestive heart failure and venous insufficiency caused swelling in your legs. The things that you can do to help decrease the swellingin your legs are consumed a low salt diet and elevate your legs when you are seated in a chair. Sitting with your legs down increases the swelling in your legs. You can also wear compression stockings and these should be applied the first thing in the morning when you get out of bed and not removed until you getinto bed at night. You will also be taking a water pill to help get rid of excess fluid. I have given you some literature to read about how to treat venous insufficiency. Eating too much slat makes your body retain fluid. We did ultra sounds of the veins in the legs to make sure you do not have blood clots contributing to the swelling and there are no blood clots in your legs. You have not been on Xarelto while on rehab because you had bleeding in your head from the fall. You should not restart this medication until the neurosurgeon tells you that it is OK........they will likely want to do a repeatCT scan of the head/brain before restarting anticoagulation. Sometimes when a patient falls regularly and they have had bleeding in the brain/head the anticoagulation does not get restarted because the risk for bleeding is too great. 6. You have some mild chronic kidney disease. Because of this we discontinued Famotidine because it can build up in people with kidney disease. We have substituted a drug called Protonix (also called pantoprazole) to treat your heartburn/reflux. We are giving you this medication twice a day and since we increased it to twice a day you are no longer having heartburn or nausea. 7. I am giving you a prescription for #1 Butrans patch and #21 Percocet. This will get you through next week so you can follow up with Dr. Hall the next week........you are going to be busy with other appts next week. 8. If you have any questions after you leave rehab or you are out of a medication I did not give you a prescription for please do not hesitate to call me. OFFICE: [phone] CELL: [phone] NURSES STATION ON REHAB: [phone] Discharge Orders/Prescriptions Prescriptions: New alendronate 70 mg Tablet 70 mg PO Q7D@0700 Qty: 4 0RF pantoprazole 20 mg Tablet,Delayed Release (Dr/Ec) 20 mg PO BID Qty: 60 0RF spironolactone 25 mg Tablet 12.5 mg PO DAILY Qty: 30 0RF furosemide [Lasix] 40 mg tablet 40 mg PO DAILY Qty: 30 0RF buprenorphine 10 mcg/hour patch weekly 1 patch transdermal Q7D 30 Days Qty: 4 0RF potassium chloride 10 mEq capsule, extended release 10 meq PO DAILY Qty: 30 0RF cholecalciferol (vitamin D3) 50 mcg (2,000 unit) capsule 50 mcg PO BID Qty: 60 0RF Continued atenolol 25 mg tablet 25 mg PO DAILY folic acid 1 mg tablet 1 mg PO DAILY albuterol sulfate 90 mcg/actuation HFA aerosol inhaler 2 puff inhalation Q6H PRN (Reason: dyspnea) tiotropium bromide [Spiriva with HandiHaler] 18 mcg capsule, w/inhalation device 1 cap inhalation DAILY PRN (Reason: shortness of breath ) baclofen 5 mg tablet 5 mg PO QHS gabapentin 100 mg capsule 100 mg PO Q12H Jardiance 10 mg tablet 10 mg PO DAILY melatonin 3 mg capsule 3 mg PO QHS Dulera 100-5 mcg/actuation HFA aerosol inhaler 2 inh inhalation BID (DME) OXYGEN - Supplemental ([facility] INFORMATIONAL USE ONLY) Gas See Rx Instructions .ROUTE Patient Comments: 2L HS Rx Instructions: As directed Skyrizi 150 mg/mL pen injector 150 mg SUBCUT Q90D Patient Comments: [NO ORIGINAL SIG] Changed oxycodone-acetaminophen 5-325 mg tablet 1 tab PO TID PRN (Reason: pain 4-10) 7 Days Qty: 21 0RF Discontinued famotidine 20 mg tablet 20 mg PO DAILY Xarelto 20 mg tablet 20 mg PO DAILY cholecalciferol (vitamin D3) 50 mcg (2,000 unit) capsule 50 mcg PO DAILY acetaminophen 500 mg tablet 1,000 mg PO Q8 enoxaparin [Lovenox] 30 mg/0.3 mL syringe 30 mg subcut Q12H furosemide [Lasix] 20 mg tablet 20 mg PO DAILY PRN (Reason: weight gain) ipratropium bromide 0.02 % solution 1.25 ml inhalation Q6H PRN (Reason: wheezing) ipratropium-albuterol 0.5 mg-3 mg(2.5 mg base)/3 mL solution for nebulization 3 ml inhalation Q2H PRN (Reason: shortness of breath or wheezing) Rx Instructions: until breathing returns to target peak flow/parameters ondansetron 4 mg tablet,disintegrating 8 mg PO Q8H PRN (Reason: nausea and vomiting) Rx Instructions: 1st dose 1-2 hr before radiation oxycodone 5 mg Tablet 5 mg PO Q4H PRN (Reason: Pain Score1-10) buprenorphine [Butrans] 5 mcg/hour patch weekly 1 patch transdermal Q7D lidocaine 5 % Adhesive Patch,Medicated 2 patch topical DAILY Qty: 60 0RF Protocol: *Topical Application Instructions APPLICATION INSTRUCTIONS: Apply to painful areas of low back. Rx Instructions: Apply to area of low back pain-change daily Other Ambulatory Orders: Basic Metabolic Profile (BMP) (Routine) Timeframe: 1 Week Facility: [facility] - Location: Laboratory Ordered By: Dr. Keerthi Son Referrals / Follow Up: Anuj Ramos [Other, Neurology] - 05/21/25 3:15 pm Referral Note: Daniel Hall MD [Med Staff - Active Staff, Pain Management] - 05/22/25 2:30 pm Marty Guthrie MD [Primary Care Provider, Medical] - 05/20/25 2:00 pm Kendell Liang MD [Med Staff - Courtesy Staff, Endocrinology] Referral Note: referral sent office will call to make appointment [facility] [Non-Staff, Wound Care] - 05/19/25 2:00 pm Referral Note: Dr Plasencia Disposition Disposition (needs filled in before D/C Order can be placed): Home Health Service Charges/Coding Visit Charges Inpatient E&M: 10246 Disch Hosp >30min 05/16/25 1147 <Electronically signed by Keerthi Son DO> Cosigner Signature (if applicable): CC: Dr. Daniel Hall MD; Dr. Mike Malagon MD; Dr. Keerthi Son DO;Dr. Marty Guthrie MD; Dr. Kendell Liang MD~ Signed [facility] Work Phone: [phone] Discharge summary [facility] Medical Records Department [address] [place] [id number] Discharge Summary 05/15/25 1125 MR#: [id number] Acct: [id number] Name: LESLI ROSALES Rep #:[id number] : 1940 85 From: Keerthi Son DO PCP: Dr. Marty Guthrie MD Status:ADM I N Location: [place] [address] Providers Date of Admission: 04/29/25 Date of Discharge: 05/16/25 Primary Care Physician: Dr. Marty Guthrie MD Consultations 04/30/25 11:19 Consult: Plastic Surgery Routine Consulting Provider: Jack Plasencia Reason for Consult: Hematoma/infected right knee EMERGENT Consult: No Notified: Yes Date Notified: 04/30/25 Time Notified: 11:19 Method of Notification: Text 04/30/25 12:03 Consult: Pain Management Routine Consulting Provider: Daniel Hall Reason for Consult: pain management EMERGENT Consult: No Notified: Yes Date Notified: 04/30/25 Time Notified: 12:03 Method of Notification: Answering Service Reason For Visit: MULTIPLE TRAUMAS Diagnosis Discharge Diagnosis (1) Physical debility: Status: Acute Code(s): R53.81 - Other malaise (2) Fall: Status: Acute Code(s): W19.XXXA - Unspecified fall, initial encounter Qualifiers: Encounter type: subsequent encounter Qualified Code(s): W19.XXXD - Unspecified fall, subsequent encounter Plan: Ground level fall due to "dizziness". (3) Subdural hematoma: Status: Acute Code(s): S06.5XAA - Traumatic subdural hemorrhage with loss of consciousness status unknown, initial encounter Plan: No intervention required. (4) Multiple rib fractures: Status: Acute Code(s): S22.49XA - Multiple fractures of ribs, unspecified side, initial encounter for closed fracture Qualifiers: Encounter type: subsequent encounter Fracture type: closed Laterality:bilateral Plan: Multiple BL non-displaced rib fractures. (5) Traumatic hematoma of right knee: Status: Resolved Code(s): S80.01XA - Contusion of right knee, initial encounter Qualifiers: Encounter type: subsequent encounter Qualified Code(s): S80.01XD - Contusion of right knee, subsequent encounter Plan: Hematoma with abrasion over the R knee. Abrasion was a black eschar at the timeshe arrived on rehab. The eschar was removed by Dr. Plasencia at the bedside and hematoma was manually evacuated. Wet to drydressings were initiated. (6) Cellulitis: Status: Resolved Code(s): L03.90 - Cellulitis, unspecified Qualifiers: Laterality: right Site of cellulitis: extremity Site of cellulitis of extremity: lower extremity Qualified Code(s): L03.115 - Cellulitis of right lower limb Plan: Fluid from the right knee hematoma grew Staphylococcus hominis hominis and Staphylococcus Caprae. The Staphylococcus hominis hominis was resistant to clindamycin, oxacillin and tetracycline. There was positive inducible clindamycin resistance. She was initially placed on Keflex and when the culturew as resulted she was transition to doxycycline. (7) Vertebral compression fracture: Status: Acute Code(s): M48.50XA - Collapsed vertebra, not elsewhere classified, site unspecified, initial encounter for fracture Qualifiers: Encounter type: subsequent encounter Fracture of vertebra location: lumbar Lumbar vertebra fracturelevel: L1 Plan: She had a vertebroplasty of L2 in the past done by Dr. Malagon. She was also known to have a 25% lossof height of the body of L3. On a CT scan of the chestdone on 04/22/2025 there were compression fractures of T8 and L1 which were new. (8) Osteoporosis: Status: Chronic Code(s): M81.0 - Age-related osteoporosis without current pathological fracture Qualifiers: Encounter type: subsequent encounter Fracture healing: with delayed healing Osteoporosis type: age-related Presence of current pathological fracture: with current pathological fracture Qualified Code(s): M80.00XG - Age-related osteoporosis with current pathological fracture, unspecified site, subsequent encounter for fracture with delayed healing Plan: Was on no treatment other than vitamin D supplementation when she arrived on rehab. She had a DEXA scan and February 2025 that showed a T-score of -2.6 at L1, L3-L4. Femoral neck T-score was -3.9 and thetotal hip T-score was -4.1 and this is consistent with severe osteoporosis. There had been a 32.1% decrease inbone mineral density since the prior examination. She was seen by a doctor who treats osteoporosis and she was given a RX for Forteo. Her insurance denied payment and so she was never started on treatment. I recommended she follow up with Dr. Kendell Liang post DC from rehab and she was agreeable. A referral was sent to Dr. Liang and her office will be calling the patient to set up an appt following DC from rehab. (9) Exercise hypoxemia: Status: Chronic Code(s): R09.02 - Hypoxemia Plan: Oxygen saturation on a 2 L/min nasal cannula is appropriate when exercising. (10) Chronic anticoagulation: Status: Inactive Code(s): Z79.01 - FCI (current) use of anticoagulants Plan: She was on Xarelto at the time of her fall but due to the subdural hematoma Xarelto was discontinued. She has had some falls over the past couple years. Question whether the risk outweighs the benefit at this drug at this point. Will defer that decision to neurosurgery/neurology. (11) Paroxysmal atrial fibrillation: Status: Chronic Code(s): I48.0 - Paroxysmal atrial fibrillation (12) Psoriatic arthritis: Status: Chronic Code(s): L40.50 - Arthropathic psoriasis, unspecified (13) Vitamin D deficiency: Status: Chronic Code(s): E55.9 - Vitamin D deficiency, unspecified Plan: Lesli was taking 50 mcg of cholecalciferol daily at home and states that she is very compliant. The vitamin D level was checked on 04/30/2025 and was low at 27.6. She was on cholecalciferol 50 mcg since arrival on rehab.......it was rechecked on 05/10/2025 and was still low at 25.6. Vitamin D was increased to 50mcg BID. She will need a follow up Vitamin D level checked in 4 weeks. (14) Mild cognitive impairment of uncertain or unknown etiology: Status: Chronic Code(s): G31.84 - Mild cognitive impairment of uncertain or unknown etiology (15) Pulmonary nodule 1 cm or greater in diameter: Status: Chronic Code(s): R91.1 - Solitary pulmonary nodule Plan: the nodule is not solitary. There are calcified granulomas in the R lung. The largest is along the R minor fissure and on the recent CT chest on 04/22/25 it measured 15 mm. The measurement in October of 2024 was 1.4 cm X 1.1 cm. she willcontinue to follow with pulmonary. (16) Left shoulder pain: Status: Acute Code(s): M25.512 - Pain in left shoulder Qualifiers: Chronicity: acute Qualified Code(s): M25.512 - Pain in left shoulder Plan: No fracture or dislocation of the L shoulder on plain XRAY. She has seen Dr. Giron in the past fora R shoulder replacement and she will follow up with Dr. Giron as needed. (17) Pulmonary hypertension: Status: Chronic Code(s): I27.20 - Pulmonary hypertension, unspecified Plan: The right ventricular systolic pressure in October 2024 on a transthoracic echocardiogram was estimated at 36. (18) Venous insufficiency: Status: Chronic Code(s): I87.2 - Venous insufficiency (chronic) (peripheral) (19) Hypoxemia associated with sleep: Status: Chronic Code(s): G47.36 - Sleep related hypoventilation in conditions classified elsewhere Plan: Abnormal overnight trending pulse ox. 62% of the time that she was monitored the pulse ox ranged from 80 to 89%. We have been applying O2 at 2 LPM anytime she has been sleeping and the pulse ox on oxygen has been consistently > 90. Plan 1. DC home 2. [facility] [place] 3. Son, Nathaniel, will change the dressings on the R knee. He came in for education with nursing priorto [place]. 4. She will follow up with Dr. Guthrie for primary care. She will follow up withDr. Hall for pain management. She has a appt with neurology scheduled for 05/21......will defer restarting AC to neurology. She will follow up with Dr. Giron PRTl for left shoulder pain. She will continue to follow up with the casting cleaner she has been seeing. She has an [facility] She will follow up with Dr. Kendell Liang for management of osteoporosis........will continue the Fosamax at [place] and Calcium/Vitamin D. I think she would benefit from Prolia or Reclast. Insurance did not approve Forteo. Dr. Liang's office will call her to schedule an appt after she has been discharged from rehab. 5. She will need a Vitamin D level done in another month to makes sure the Vitamin D level is WNL after increasing the Cholecalciferol to 50 mcg BID. 6. Continue Lasix and Aldactone at [place]. BMP in 1 week. Medications at Discharge Home Medications atenolol 25 mg tablet 25 mg PO DAILY Atrial fibrillation 06/26/21 folic acid 1 mg tablet 1 mg PO DAILY supplement 06/26/21 albuterol sulfate 90 mcg/actuation aerosol inhaler 2 puff inhalation Q6H PRN dyspnea 11/18/24 tiotropium bromide 18 mcg capsule with inhalation device (Spiriva with HandiHaler) 1 cap inhalationDAILY PRN shortness of breath 11/18/24 risankizumab-rzaa 150 mg/mL subcutaneous pen injector (Skyrizi) 150 mg subcut Q90D . 12/24/24 baclofen 5 mg tablet 5 mg PO QHS pain 04/22/25 empagliflozin 10 mg tablet (Jardiance) 10 mg PO DAILY glucose 04/29/25 gabapentin 100 mg capsule 100 mg PO Q12H nerve pain 04/29/25 melatonin 3 mg capsule 3 mg PO QHS sleep 04/29/25 mometasone-formoterol HFA 100 mcg-5 mcg/actuation aerosol inhaler (Dulera) 2 inhinhalation BID sob 04/29/25 OXYGEN - Supplemental ([facility] INFORMATIONAL USE ONLY) 05/01/25 alendronate 70 mg tablet 70 mg PO Q7D@0700 #4 tabs 05/15/25 buprenorphine 10 mcg/hour weekly transdermal patch 1 patch transdermal Q7D 1 month #4 ea 05/15/25 furosemide 40 mg tablet (Lasix) 40 mg PO DAILY #30 tabs 05/15/25 oxycodone-acetaminophen 5 mg-325 mg tablet 1 tab PO TID PRN pain 4-10 1 week #21tabs 05/15/25 pantoprazole 20 mg tablet,delayed release 20 mg PO BID #60 tabs 05/15/25 spironolactone 25 mg tablet 12.5 mg (1/2 x 25 mg) PO DAILY #30 tabs 05/15/25 cholecalciferol (vitamin D3) 50 mcg (2,000 unit) capsule 50 mcg PO BID #60 caps 05/16/25 potassium chloride 10 mEq capsule,extended release 10 meq PO DAILY #30 caps 05/16/25 Hospital Course Operations None Procedures None Summary of Care Provided Minutes Spent on Discharge: 55 Hospital Course: LESLI ROSALES, is a 85 YO F with a PMH of hypertension, PAF, chronic anticoagulation with Xarelto, chronic diastolic congestive heart failure with preserved ejection fraction of 60%, biatrial enlargement (left greater than right), tricuspid regurgitation, history of tobacco dependence, COPD, anx iety/depression, GERD, psoriatic arthritis (on Skyrizi every 3 months), history of shingles, history of a proximal right humeral fracture, osteoporosis (on no medication at admission to rehab except Vitamin D), chronic pain syndrome(follows with Dr. Hall for pain management), CONCEPCION and thoracic/lumbar compression fractures (+ hx of kyphoplasty of L2) who presented to [facility] at [facility] on 04/22/2025 complaining of feeling dizzy "all day long". The dizziness led to a fall and she was complaining of left shoulder pain. CT scan of the brain showed a subdural hemor rhage which was6 mm in thickness with no mass effect. CT of the chest showed multiple bilateral nondisplaced rib fractures. There was cardiomegaly present and small bilateral pleural effusions with increased interstitial changes especially in the bases of the lungs. There were multiple vertebral compression fractures including T8, L1 and L2 and L3. T8 and L1 are acute and L2 and L3 are old. Left hand x-ray showed a probable nondisplaced fracture of the left scaphoid but, when seen by ortho at previous hospital they did not feel there was a fx present. XRAYS of the right knee showed no fracture or dislocation. There was prepatellar swelling due to a superficial hematoma. She was given K Centra and transferred to [facility] to the trauma service. Consult was obtained with neurosurgery. A repeat CT head showed improvement in the right frontal subduralhematoma and there was also interhemisphericsubdural hematoma noted. No surgical intervention was indicated. Neurosurgery recommended holding Xarelto but, they were okay with Lovenox 30 mg SQ every 12 hours. No significant complications while at the previous hospital. She was transferred to the acute inpt rehab unit at [facility] on 04/29/25 for 3 hours of therapy daily to restore function/independence at or near her level prior to the fall. At presentation to rehab the R knee was noted to have a large prepatellar hematoma with a black eschar in the center. the knee was red and warm to the touch. Dr. Plasencia form plastic surgery was consulted and he made an incision overthe knee at the bedside to drain the hematoma. The eschar was excised. Cultureof the fluid was sent and grew Staphylococcus hominis hominis and StaphylococcusCaprae. She was started on Keflex. BID wet - dry dressings were ordered. The Staphylococcus hominis hominis was oxacillin resistant and had inducible clindamycin resistance. Keflex was discontinued and doxycycline 100 mg twice daily was ordered for [address] Plasencia continued to follow her while she was apt on rehab. At DC the wound is much improved. Ecchymosis and edema had resolved and there was no discharge from the wound. There was no increased warmth to touch around the wound. She had no pain with passive or active range of motion of the knee. She is going to follow up with Dr. Plasencia in [facility] post DC from rehab. Lesli's son Nathaniel came in for training priorto her DC to learn howto dress the wound. BID wet to dry dressing were continued at [facility]. The vitamin D level was checked at admission and it was low at 27.6 despitetaking 50 mcg of Cholecalciferol daily. She stated she had been compliant with this medication. We elected to leave her on 50 mcg daily and we rechecked a vitamin D level in 10 days and it was still low at 25.6. The vitamin D was increased to 50 mcg of Cholecalciferol twice daily. She was started on Fosamax 10 mg daily andhad no complaint of increased heartburn. Because she has a history of GERD we wanted to increase the famotidine but her creatinine clearance is decreased and increasing the Famotidine was not an option. She wastransitioned to Protonix 20 mg BID after talking with the pharmacist. She had no adverse side effects with Fosamax and after a week she was transitioned to Fosamax 70 mg once a week. Calcium was normal and she was not started on a calcium supplement. She had been prescribed Forteo in the past because she has severe osteoporosis with pathologic fractures of her vertebrae but, insurance de nied and nothing else was ever started. I think she would benefit from an immunologic and I recommended she follow-up with Dr. Kendell Liang from endocrinology to manage the osteoporosis. She continues to complain of severe pain and consult was obtained with from pain management. The Butrans patch was increased from 5 mcg to 10 mcg weekly. She was also prescribed oxycodone 5mg every 4 hours as needed for breakthrough pain. Gabapentin 100 mg twice daily and baclofen 5 mg at bedtime were continued. She was also placed on 1 g of Tylenol every 8 hours. Pain is better than at admission and she has been taking Oxycodone 5 mg 3-4 times a day. She has multiple complaints of pain but, she has been able to do her therapy for 3 hours a day and she is sleeping well at night. She and I agreed that her pain is adequately controlled and that she will continue to follow up with Dr. Hall as an OP. She was given a RX for #4 Butrans 10 mcg patches at [facility]. She was also given a prescription for Percocet 5/325 mg, #21, and will use this for breakthrough pain every 4-[address] Hall's office was notified that I gave Lesli a RX for Butrans. She has persistent complaint of left shoulder pain. X-ray at admission showed no fracture or dislocation. It is possible that due to the fall she has a rotator cuff tendinopathy/tear. She hasseen Dr. Malcom Giron in the past for a right shoulder replacement and she willfollow-up with him as needed for persistent left shoulder pain. Lesli had an exacerbation of chronic diastolic congestive heart failure while on rehab. Oral Lasix dosing was increased but this failed to resolve the problem. She was transition to IV Lasix 40 mgtwice daily and had a better diuresis but developed a contraction alkalosis. She continued to have pitting edema both lower extremities and was noncompliant with elevation. Spironolactone 12.5 mg daily was added to the drug regimen. Potassiums have been low with the Lasix and in addition to the spironolactone she did receive supplemental potassium. Prior to discharge she had 2 days of bed rest with her legs elevated anytime she was not doing therapy or using the restroom. The edema of the lower extremity significantly improved with elevation. She was transition to oral Lasix 40 mg once a day and Spironolactone was continued. Shewas given a RX for calf compression wraps and told [facility] [place]. We talked about the importance of Leg elevationmultiple times during her time on rehab. Lesli has oxygen as an OP which she uses PRN. The pulse ox on RA with exertion was in the 80's and we ordered oxygen supplementation at 1-2 LPM any time she was exerting herself. Pulse ox on RA atrest while awake was 90% or greater. An overnight trending pulse ox was done and was very abnormal with thepulse ox 89% or less over 60% of the time. Lesli has never complained of shortness of breath while on rehab. She has not had a cough. She had better exercise performance when wearing the oxygen. She has been sleeping well and awakens feeling rested in the AM. She is very alert during the days. Because of the lower extremity swelling and the hypoxemia we elected to do venous ultrasounds of her lower extremities and these were negative for DVT. Lesli did well with therapy and she was able to be discharged home on 05/16/25. She will have home health care at [place]. Her son Nathaniel was taught how todo the dressing changes. Nathaniel lives with Lesli and he is able to assist her. At the time of discharge she is able to do 6 sit to stand using herright upper extremity to rise at standby assist. He is able to ascend to curb steps using a front wheeled walker at contact-guard assist and she can descend with minimal assistance needed. She has ambulated up to 200 feet with a front wheel walker on various surfaces. Lesli is supervision/set upfor eating and grooming. She requires minimal assistance with bathing and upper body dressing. She is supervision/set up for lower body dressing and toileting. She is standby assist for toilet transfer. She is contact-guard assist for tub/shower transfer. [facility] home health care was arranged by the social services designee prior to discharge. Home O2 was also arranged and she was instructed to wear her O2 anytime she is exerting herself and anytime she is napping or sleeping. She will follow-up with her pul monary physician as previously scheduled postdischarge. She will need a BMP in 1 week and a vitamin D level in 1 month. She has an appointment to follow-upwith neurology on 05/21/2025 and the decision to restartXarelto will be made by neurology and/or cardiology. With hx of falls the risk of AC may outweigh the benefit. She may be a candidate for a Watchman procedure. Physical Exam Const alert, oriented x3 and no apparent distress Constitutional Narrative: Talking a lot and interacting with staff. General Appearance: cooperative and well kempt HEENT HEENT Narrative: FAcial bruising has resolved. Eyes PERRL, EOMs intact bilaterally, conjunctivae normal and no scleral icterus Eyes Narrative: No discharge from the eyes and no conjunctival hemorrhage or injection of the conjunctiva. Neck supple and No nodes General: trachea midline Resp normal respiratory effort Resp Narrative: good air exchange in the bases today. Has persistent coarse crackles in both bases.....I suspect this is due to scarring/fibrosis. NO wheezing. Not tachypneic and no conversational dyspnea. Denies orthopnea. . Effort and Inspection: able to speak in complete sentences and symmetric chest movement; Negative for tachypneic Cardio no gallops and no JVD Cardio Narrative: Irregular irregular with controlled ventricular response. GI normal to inspection, nondistended, normoactive bowel sounds, soft to palpation and non-tender no CVA tenderness Back/Spine Back/Spine Narrative: No c/o back pain today. Extremity no calf tenderness Extremity Narrative: The edema in the LE's is limited to the ankles and dorsum of the foot........TheL ankle and foot have minimal edema.........it is worse in the R foot and ankle......more likely than not related to the hematoma and wound on the R knee. Skin Skin Narrative: The swelling and erythema of the right knee has resolved. There is no eschar present. There is still an opening in the skin but the base of the wound is pink and granulating. There is no purulent discharge. There is no odor. Thereis no increased warmth to touch. Rashes: no rashes Neuro oriented x3 and CN's II-XII intact bilaterally Neuro Narrative: Can move all extremities. No visual field cuts. Tongue protrudes on the midline. No facial asymmetry. Grossly normal mentation. Not somnolent. Not complaining of cephalgia. Psych mental status grossly normal, cooperative and affect normal Psych Narrative: Scored 40 out of a possible 50 on the BCAT. This is consistent with mild cognitive impairment. Weight / BMI Weight Weight: 141 lb 6 oz Body Mass Index (BMI) 27.6 ABG / Lab / Microbiology Data 05/14/25 05:40 05/15/25 07:10 Laboratory: Laboratory Results - last 24 hr 05/15/25 07:10: Sodium 143, Potassium 3.6, Chloride 104, Carbon Dioxide 22.0, Anion Gap 17 H, BUN 19, Creatinine 0.56 L, Estim Creat Clear Calc 43.55 L, Est GFR (MDRD) Non-Af 90, BUN/Creatinine Ratio34.1 H, Glucose 104 H, Calcium 8.8 Microbiology: Microbiology 04/30/25 14:00 Wound Drainage - Aerobic & Anaerobic Swabs Gram Stain - Final 04/30/25 14:00 Wound Drainage - Aerobic & Anaerobic Swabs Wound Culture - Final Staphylococcus hominis hominis Staphylococcus caprae 04/30/25 14:00 Wound Drainage - Aerobic & Anaerobic Swabs Anaerobic Culture - Final No growth in 5 days. ABG: ABG 05/14/25 22:12 Specimen Type ART Sample Site R Radial pH 7.45 Bicarbonate Actual 37.2 H Total CO2 39 Base Excess 13 H O2 Saturation 96 O2 % 1.0 ABG pCO2 54.0 H ABG pO2 83 Cassandra Test Positive O2 Delivery Device Cannula Vent Mode Not entered Radiography Diagnostic Testing: Radiology Impression Chest X-Ray 05/14/25 13:10 IMPRESSION: Improving pleural effusions. Other findings as noted. Reading Location: [id number] Venous Doppler Study 05/14/25 13:10 Interpretation Summary Deep veins of the lower extremities are bilaterally patent and compressible segmentally. There is no evidence of deep vein thrombosis on either side. Valvular competence appears intact within the proximal deep venous systems bilaterally. The great saphenous veins appear bilaterally patent and compressible segmentally. The right popliteal vein was not visualized due to the presence of a bandage. Ordering Physician: Keerthi Son Referring Physician: Marty Guthrie Performed By: Jeanie Zamarripa RVT D/C Instructions DC O2, CPAP, BIPAP Needs Home O2 Discharge instructions: Yes Type of respiratory needs?: Oxygen Oxygen frequency: With Ambulation Oxygen liters per minute during Ambulation: 1-2 and With Sleeping Oxygen liters per minute when sleepin L DC home with Oxygen: Yes Home O2 Review: I have reviewed the oxygen testing, and the patient qualifies for home oxygen equipment and portability. The patient is mobile in the home and the community. Meaningful Use Info Meaningful Use Meaningful Use Diagnoses (Choose all that apply): None applicable (SDH due to a fall. ) and CHF (Acute on chronic diastolic congestive heart failure.) CHF MORALES/ARB ordered at discharge?: No Reason MORALES/ARB not ordered?: Normal EF Documented LVEF (%): 60 Discharge Plan Admission Admit Date/Time: 04/29/25 18:05 Primary Reason for Your Visit: Debility due to fall/SDH/multiple fractures Attending Provider: Keerthi Son Primary Care Provider: Marty Guthrie Consulting Providers: Jack Plasencia; Daniel Hall Instructions Patient Instructions: CVI Additional Instructions / Restrictions: 1. You will need to follow up with Dr. Hall next week for prescriptions for pain medication. 2. You are going to follow up in the wound care center with Dr. Plasencia for the wound on the R knee 3. I recommend that you follow up with Dr. Kendell Liang, semiautomatic stitcher operator, for treatment of your severeosteoporosis. Even on Vitamin D 50 mcg daily your Vitamin D level was low. We have increased the vitamin D to twice a day. Vitamin D is necessary to be able to absorb calcium from the gastrointestinal tract. Vitamin D comes from the sun........which we don't see for a good portion of the year in [place]. 4. You have chronic lung disease. Your oxygen drops with exertion and also when sleeping. You should be wearing oxygen anytime you are exerting yourself (like with walking) and anytime you are napping/sleeping. You do not have to wear the oxygen if you are just sitting in a chair. 5. You have a history of congestive heart failure. You also have varicose veins in your legs and this causes a condition called chronic venous insufficiency. Both congestive heart failure and venous insufficiency caused swelling in your legs. The things that you can do to help decrease the swellingin your legs are consumed a low salt diet and elevate your legs when you are seated in a chair. Sitting with your legs down increases the swelling in your legs. You can also wear compression stockingsand these should be applied the first thing in the morning when you get out of bed and not removed until you getinto bed at night. You will also be taking a water pill to help get rid of excess fluid. I have given you some literature to read about how to treat venous insufficiency. Eating too much slat makes your body retain fluid. We did ultra sounds of the veins in the legs to make sure you do not have blood clots contributing to the swelling and there are no blood clots in your legs. You have not been on Xarelto while on rehab because you had bleeding in your head from the fall. You should not restart this medication until the neurosurgeon tells you that it is OK........they willlikely want to do a repeatCT scan of the head/brain before restarting anticoagulation. Sometimes whe n a patient falls regularly and they have had bleeding in the brain/head the anticoagulation does not get restarted because the risk for bleeding is too great. 6. You have some mild chronic kidney disease. Because of this we discontinued Famotidine because itcan build up in people with kidney disease. We have substituted a drug called Protonix (also calledpantoprazole) to treat your heartburn/reflux. We are giving you this medication twice a day and since we increased it to twice a day you are no longer having heartburn or nausea. 7. I am giving you a prescription for #1 Butrans patch and #21 Percocet. This will get you through next week so you can follow up with Dr. Hall the next week........you are going to be busy with other appts next week. 8. If you have any questions after you leave rehab or you are out of a medication I did not give you a prescription for please do not hesitate to call me. OFFICE: [phone] CELL: [phone] NURSES STATION ON REHAB: [phone] Discharge Orders/Prescriptions Prescriptions: New alendronate 70 mg Tablet 70 mg PO Q7D@0700 Qty: 4 0RF pantoprazole 20 mg Tablet,Delayed Release (Dr/Ec) 20 mg PO BID Qty: 60 0RF spironolactone 25 mg Tablet 12.5 mg PO DAILY Qty: 30 0RF furosemide [Lasix] 40 mg tablet 40 mg PO DAILY Qty: 30 0RF buprenorphine 10 mcg/hour patch weekly 1 patch transdermal Q7D 30 Days Qty: 4 0RF potassium chloride 10 mEq capsule, extended release 10 meq PO DAILY Qty: 30 0RF cholecalciferol (vitamin D3) 50 mcg (2,000 unit) capsule 50 mcg PO BID Qty: 60 0RF Continued atenolol 25 mg tablet 25 mg PO DAILY folic acid 1 mg tablet 1 mg PO DAILY albuterol sulfate 90 mcg/actuation HFA aerosol inhaler 2 puff inhalation Q6H PRN (Reason: dyspnea) tiotropium bromide [Spiriva with HandiHaler] 18 mcg capsule, w/inhalation device 1 cap inhalation DAILY PRN (Reason: shortness of breath ) baclofen 5 mg tablet 5 mg PO QHS gabapentin 100 mg capsule 100 mg PO Q12H Jardiance 10 mg tablet 10 mg PO DAILY melatonin 3 mg capsule 3 mg PO QHS Dulera 100-5 mcg/actuation HFA aerosol inhaler 2 inh inhalation BID (DME) OXYGEN - Supplemental ([facility] INFORMATIONAL USE ONLY) Gas See Rx Instructions .ROUTE Patient Comments: 2L HS Rx Instructions: As directed Skyrizi 150 mg/mL pen injector 150 mg SUBCUT Q90D Patient Comments: [NO ORIGINAL SIG] Changed oxycodone-acetaminophen 5-325 mg tablet 1 tab PO TID PRN (Reason: pain 4-10) 7 Days Qty: 21 0RF Discontinued famotidine 20 mg tablet 20 mg PO DAILY Xarelto 20 mg tablet 20 mg PO DAILY cholecalciferol (vitamin D3) 50 mcg (2,000 unit) capsule 50 mcg PO DAILY acetaminophen 500 mg tablet 1,000 mg PO Q8 enoxaparin [Lovenox] 30 mg/0.3 mL syringe 30 mg subcut Q12H furosemide [Lasix] 20 mg tablet 20 mg PO DAILY PRN (Reason: weight gain) ipratropium bromide 0.02 % solution 1.25 ml inhalation Q6H PRN (Reason: wheezing) ipratropium-albuterol 0.5 mg-3 mg(2.5 mg base)/3 mL solution for nebulization 3 ml inhalation Q2H PRN (Reason: shortness of breath or wheezing) Rx Instructions: until breathing returns to target peak flow/parameters ondansetron 4 mg tablet,disintegrating 8 mg PO Q8H PRN (Reason: nausea and vomiting) Rx Instructions: 1st dose 1-2 hr before radiation oxycodone 5 mg Tablet 5 mg PO Q4H PRN (Reason: Pain Score1-10) buprenorphine [Butrans] 5 mcg/hour patch weekly 1 patch transdermal Q7D lidocaine 5 % Adhesive Patch,Medicated 2 patch topical DAILY Qty: 60 0RF Protocol: *Topical Application Instructions APPLICATION INSTRUCTIONS: Apply to painful areas of low back. Rx Instructions: Apply to area of low back pain-change daily Other Ambulatory Orders: Basic Metabolic Profile (BMP) (Routine) Timeframe: 1 Week Facility: [facility] - Location: Laboratory Ordered By: Dr. Keerthi Son Referrals / Follow Up: nAuj Ramos [Other, Neurology] - 05/21/25 3:15 pm Referral Note: Daniel Hall MD [Med Staff - Active Staff, Pain Management] - 05/22/25 2:30 pm Marty Guthrie MD [Primary Care Provider, Medical] - 05/20/25 2:00 pm Kendell Liang MD [Med Staff - Courtesy Staff, Endocrinology] Referral Note: referral sent office will call to make appointment Hyperbaric Medicine,[place] [facility] and [Non-Staff, Wound Care] - 05/19/25 2:00 pm Referral Note: Dr Plasencia Disposition Disposition (needs filled in before D/C Order can be placed): Home Health Service Charges/Coding Visit Charges Inpatient E&M: 69526 Disch Hosp >30min 05/16/25 1147 Cosigner Signature (if applicable): CC: Dr. Daniel Hall MD; Dr. Mike Malagon MD; Dr. Keerthi Son DO;Dr. Marty Guthrie MD; Dr. Kendell Liang MD~ Signed [facility]09-25-2025 [facility] Radiology Diagnostic study note [facility] Imaging Services [address] [place] [address] [id number] Chest PA and Lateral MR#: [id number] Acct: [id number] Name: LESLI ROSALES Rep #: [id number] : 1940 F 85 From: Eula Aceves MD PCP: Dr. Marty Guthrie MD Status: ADM I N Study:Chest PA and Lateral Date of Exam: 05/14/25 Exam# [id number] Ordering Dr: Keerthi Son DO PROCEDURE: CHEST PA AND LATERAL 05/14/2025 REASON FOR EXAM: RALES TECHNIQUE: Procedure Code: RADCXR Modality: DX Procedure: CHEST PA AND LATERAL COMPARISON: Portable chest, 05/06/2025. FINDINGS: There has been interval improvement in the pleural effusions right remaining hrimf-jrryizp-utfa-left. There is bibasilar atelectasis or scarring. There is again noted a 13 mm in diameter nodule in themidlung zone on the right. There is cardiomegaly. There is calcific vascular disease of the thoracic aorta. There is a right shoulder arthroplasty. There has been an upper lumbar vertebroplasty. The visualized abdominal bowel gas pattern is unremarkable. RAD/Chest PA and Lateral IMPRESSION: Improving pleural effusions. Other findings as noted. Reading Location: [id number] CC: Dr. Keerthi Son DO; Dr. Marty Guthrie MD ~ Coat Baster: Signed [facility] Work Phone: [phone] 803-300509-24-2025 Progress note Author Keerthi Son [facility] Note Date/Time May 14, 2025 1:19pm [facility] Medical Records Department [address] [place] [address] Progress Note 05/14/25 1303 MR#: [id number] Acct: [id number] Name: LESLI ROSALES Jose Alberto Rep #:[id number] : 1940 85 From: Keerthi Son DO PCP: Dr. Marty Guthrie MD Status:ADM I N Location: [place] [address] Subjective Subjective Afebrile Vital signs stable Fluid balance yesterday was -975 and she was -410 mL overnight but, weight increased 2 pounds? All lab drawn this morning was personally reviewed. Hemoglobin is 11.9, down from 12.7 on 05/07/2025. White blood cell count is normal. Platelets are normal. Sodium is stable at 142 and the potassium is 3.9. Serum bicarb is increased at 33.4........contraction alkalosis? or due to CO2 retention....suspect contraction alkalosis. The BUN is 29 which is up from 20 on 05/10/2025. Creatinine is up to 0.47 from 0.38 on 05/12/2025. Magnesium is good at 2.3. BNP is 1,718 which is good for her. When I entered her room she once again had the feet elevated only 6" off the floor. She denies lightheadedness, shortness of breath, orthopnea, chest pain, palpitations, dysuria. Continues to complain of left shoulder pain and pain in her feet which is chronic. She does not look to be in any discomfort. She is alert. No apparent distress. Appears comfortable. Lungs-coarse crackles in both bases with much better air exchange in the right base today. No wheezing, no tachypnea and no conversational dyspnea. Heart-irregular irregular with controlled ventricular response. more edema in the legs today than yesterday......non-compliant with elevation despite multiple directions that her legs are to be elevated to the full extent while she is in the recliner. MORALES wraps are in place. Objective Data Objective Data Vital Signs: Vital Signs Temp Pulse Resp BP Pulse Ox O2 Del Method O2 Flow Rate 98.4 F 80 16 129/75 H 92 Nasal Cannula 1 05/14/25 06:00 05/14/25 11:45 05/14/25 11:45 05/14/25 06:00 05/14/25 11:45 05/14/25 11:45 05/14/25 11:45 FiO2 21 05/01/25 21:55 Oxygen Flow Rate (L/min) 1 Oxygen Delivery Method Nasal Cannula Weight: 143 lb 8.335 oz Body Mass Index (BMI) 28.0 Intake & Output: Intake and Output for Last 24 Hours 05/12/25 05/13/25 05/14/25 23:59 23:59 23:59 Intake Total 570 / 570 1450 / 1450 240 / 240 Output Total 2125 / 2325 2425 / 2425 650 / 650 Balance -1555 / -1755 -975 / -975 -410 / -410 Lab / Micro Data 05/14/25 05:40 05/14/25 05:40 Labs: Laboratory Results - last 24 hr 05/14/25 05:40: WBC 5.9, RBC 3.54 L, Hgb 11.9 L, Hct 37.7, MCV 106.5 H, MCH 33.6H, MCHC 31.6 L, RDW Std Deviation 60.6 H, RDW Coeff of Mildred 15.3 H, Plt Count 216, MPV 10.4, Sodium 142, Potassium 3.9, Chloride 103, Carbon Dioxide 33.4 H, Anion Gap 6, BUN 29 H, Creatinine 0.47 L, Estim Creat Clear Calc 44.08 L, Est GFR (MDRD) Non- Af 94, BUN/Creatinine Ratio 61.9 H, Glucose 76, Calcium 9.0, Magnesium 2.3 H, NT pro BNP II 1718 Micro: Microbiology 04/30/25 14:00 Wound Drainage - Aerobic & Anaerobic Swabs Gram Stain - Final 04/30/25 14:00 Wound Drainage - Aerobic & Anaerobic Swabs Wound Culture - Final Staphylococcus hominis hominis Staphylococcus caprae 04/30/25 14:00 Wound Drainage - Aerobic & Anaerobic Swabs Anaerobic Culture - Final No growth in 5 days. Assessment & Plan Assessment/Plan (1) Physical debility: (2) Fall: QUALIFIERS: Encounter type: subsequent encounter Qualified Code(s): W19.XXXD - Unspecified fall, subsequent encounter (3) Subdural hematoma: (4) Multiple rib fractures: QUALIFIERS: Encounter type: subsequent encounter Fracture type: closed Laterality: bilateral (5) Traumatic hematoma of right knee: QUALIFIERS: Encounter type: subsequent encounter Qualified Code(s): S80.01XD - Contusion of right knee, subsequent encounter (6) Cellulitis: QUALIFIERS: Site of cellulitis: extremity Site of cellulitis of extremity: lower extremity Laterality: right Qualified Code(s): L03.115 - Cellulitis of right lower limb (7) Vertebral compression fracture: QUALIFIERS: Encounter type: subsequent encounter Fracture of vertebra location: lumbar Lumbar vertebra fracture level: L1 (8) Osteoporosis: QUALIFIERS: Osteoporosis type: age-related Presence of current pathological fracture: with current pathological fracture Encounter type: subsequent encounter Fracture healing: with delayed healing Qualified Code(s): M80.00XG - Age-related osteoporosis with current pathological fracture, unspecified site, subsequent encounter for fracture with delayed healing (9) Exercise hypoxemia: (10) Chronic anticoagulation: (11) Paroxysmal atrial fibrillation: (12) Psoriatic arthritis: (13) Vitamin D deficiency: (14) Mild cognitive impairment of uncertain or unknown etiology: (15) Pulmonary nodule 1 cm or greater in diameter: (16) Left shoulder pain: QUALIFIERS: Chronicity: acute Qualified Code(s): M25.512 - Pain in left shoulder (17) Pulmonary hypertension: (18) Venous insufficiency: (19) Hypoxemia associated with sleep: PLAN: Plan 1. Continue therapy. 2. BL venous US's to r/o VTE as etiology of swelling and pain in the legs. Hasnot been on DVT prophylaxis secondary to intracerebral bleeding. 3. PA and lateral CXR today to follow up on the effusions 4. ABG today....suspect she has contraction alkalosis. 5. Continue spironolactone. K is only 3.9 today so we will give a extra dose of potassium 20 mEq to get it above 4. Magnesium is good. 6. Pt is to be in bed anytime she is not with therapy orn using the RR. 7. Recheck a BMP in the AM. 8. Diamox 250 mg IV x 1 today. Charges/Coding Visit Charges Inpatient E&M: 51854 Subs Hosp L1 05/14/25 1314 <Electronically signed by Keerthi Son DO> Keerthi Son DO Cosigner Signature (if applicable): CC: ~ Signed [facility] Work Phone: [phone]) 614-227509-24-2025 Progress note Author Keerthi Son [facility] Note Date/Time May 14, 2025 12:56pm [facility] Medical Records Department [address] [place] [id number] Progress Note 05/13/25 1013 MR#: [id number] Acct: [id number] Name: LESLI ROSALES Rep #:[id number] : 1940 85 From: Keerthi Son DO PCP: Dr. Marty Guthrie MD Status:ADM I N Location: [place] [address] Subjective Subjective Afebrile VSS - Maintaining appropriate oxygen saturation on RA Oral intake - FOOD good FLUIDS poor......does not come even close to the fluid restriction.....yesterday she had only 570 recorded in. Fluid balance yesterday was -1555. The weight today is 141 pounds and 8.6 ounces. Discussed with nursing - no problems that need addressed Reviewed the THERAPY notes Medication list reviewed. Continues to c/o pain in her feet and left shoulder. Denies lightheadedness andorthopnea and CP and SOB at rest. Objective Data Objective Data Vital Signs: Vital Signs Temp Pulse Resp BP Pulse Ox O2 Del Method O2 Flow Rate 98.1 F 64 16 122/69 H 96 Nasal Cannula 2 05/13/25 05:10 05/13/25 05:10 05/13/25 05:10 05/13/25 05:10 05/13/25 08:00 05/13/25 07:14 05/13/25 08:00 FiO2 21 05/01/25 21:55 Oxygen Flow Rate (L/min) 2 Oxygen Delivery Method Nasal Cannula Weight: 141 lb 8.588 oz Body Mass Index (BMI) 27.6 Intake & Output: Intake and Output for Last 24 Hours 05/11/25 05/12/25 05/13/25 23:59 23:59 23:59 Intake Total 765 / 765 570 / 570 150 / 150 Output Total 2700 / 2700 2125 / 2325 425 / 425 Balance -1935 / -1935 -1555 / -1755 -275 / -275 Lab / Micro Data 05/14/25 05:40 05/14/25 05:40 Micro: Microbiology 04/30/25 14:00 Wound Drainage - Aerobic & Anaerobic Swabs Gram Stain - Final 04/30/25 14:00 Wound Drainage - Aerobic & Anaerobic Swabs Wound Culture - Final Staphylococcus hominis hominis Staphylococcus caprae 04/30/25 14:00 Wound Drainage - Aerobic & Anaerobic Swabs Anaerobic Culture - Final No growth in 5 days. Physical Exam Const alert and no apparent distress General Appearance: cooperative Resp normal respiratory effort Resp Narrative: No conversational dyspnea. Coarse crackles in both bases with diminished breathsounds in the right base versus left base but air exchange in the R base is improving with diuresis. No wheezing. Effort and Inspection: Negative for tachypneic Cardio no gallops Cardio Narrative: Irregular irregular with controlled ventricular response. GI normal to inspection, nondistended, normoactive bowel sounds and soft to palpation Extremity Extremity Narrative: The edema in the LE's is slowly improving with diuresis. General Extremity: edema Assessment & Plan Assessment/Plan (1) Physical debility: (2) Fall: QUALIFIERS: Encounter type: subsequent encounter Qualified Code(s): W19.XXXD - Unspecified fall, subsequent encounter (3) Subdural hematoma: (4) Multiple rib fractures: QUALIFIERS: Encounter type: subsequent encounter Fracture type: closed Laterality: bilateral (5) Traumatic hematoma of right knee: QUALIFIERS: Encounter type: subsequent encounter Qualified Code(s): S80.01XD - Contusion of right knee, subsequent encounter (6) Cellulitis: QUALIFIERS: Site of cellulitis: extremity Site of cellulitis of extremity: lower extremity Laterality: right Qualified Code(s): L03.115 - Cellulitis of right lower limb (7) Vertebral compression fracture: QUALIFIERS: Encounter type: subsequent encounter Fracture of vertebra location: lumbar Lumbar vertebra fracture level: L1 (8) Osteoporosis: QUALIFIERS: Osteoporosis type: age-related Presence of current pathological fracture: with current pathological fracture Encounter type: subsequent encounter Fracture healing: with delayed healing Qualified Code(s): M80.00XG - Age-related osteoporosis with current pathological fracture, unspecified site, subsequent encounter for fracture with delayed healing (9) Exercise hypoxemia: (10) Chronic anticoagulation: (11) Paroxysmal atrial fibrillation: (12) Psoriatic arthritis: (13) Vitamin D deficiency: (14) Mild cognitive impairment of uncertain or unknown etiology: (15) Pulmonary nodule 1 cm or greater in diameter: (16) Left shoulder pain: QUALIFIERS: Chronicity: acute Qualified Code(s): M25.512 - Pain in left shoulder (17) Pulmonary hypertension: (18) Venous insufficiency: (19) Hypoxemia associated with sleep: PLAN: Plan 1. Continue therapy 2. Plan discharge for this Monday to home with home health care. 3. Son Nathaniel will come in this week to learn how to change the dressings to theright knee. She will follow-up with Dr. Plasencia in the wound care center postdischarge 4. Add spironolactone 12.5 mg daily to the current drug regimen and start this today. 5. CBC, BMP and magnesium ordered for the a.m. I have reviewed the oxygen testing, and this patient qualifies for the home equipment and portability. The patient is mobile in the home and the community. she has desaturation with exertion and also with sleep. Charges/Coding Visit Charges Inpatient E&M: 24330 Subs Hosp L2 05/14/25 1256 <Electronically signed by Keerthi Son DO> Keerthi Mccarty Signature (if applicable): CC: ~ Signed [facility] Work Phone: 1(126) 585-993409-24-2025 Progress note [facility] Medical Records Department [address] [place] [address] Progress Note 05/14/25 1303 MR#: [id number] Acct: [id number] Name: LESLI ROSALES Rep #:[id number] : 1940 85 From: Keerthi Tameka Son DO PCP: Dr. Marty Guthrie MD Status:ADM I N Location: [place] [address] Subjective Subjective Afebrile Vital signs stable Fluid balance yesterday was -975 and she was -410 mL overnight but, weight increased 2 pounds? All lab drawn this morning was personally reviewed. Hemoglobin is 11.9, down from 12.7 on 05/07/2025. White blood cell count is normal. Platelets are normal. Sodium is stable at 142 and the potassium is 3.9. Serum bicarb is increased at 33.4........contraction alkalosis? or due to CO2 retention....suspect contraction alkalosis. The BUN is 29 which is up from 20 on 05/10/2025. Creatinine is up to 0.47 from 0.38 on 05/12/2025. Magnesium is good at 2.3. BNP is 1,718 which is good for her. When I entered her room she once again had the feet elevated only 6" off the floor. She denies lightheadedness, shortness of breath, orthopnea, chest pain, palpitations, dysuria. Continues to complain of left shoulder pain and pain in her feet which is chronic. She does not look to be in any discomfort. She is alert. No apparent distress. Appears comfortable. Lungs-coarse crackles in both bases with much better air exchange in the right base today. No wheezing, no tachypnea and no conversational dyspnea. Heart-irregular irregular with controlled ventricular response. more edema in the legs today than yesterday......non-compliant with elevation despite multiple directions that her legs are to be elevated to the full extent while she is in the recliner. MORALES wraps are in place. Objective Data Objective Data Vital Signs: Vital Signs Temp Pulse Resp BP Pulse Ox O2 Del Method O2 Flow Rate 98.4 F 80 16 129/75 H 92 Nasal Cannula 1 05/14/25 06:00 05/14/25 11:45 05/14/25 11:45 05/14/25 06:00 05/14/25 11:45 05/14/25 11:45 05/14/25 11:45 FiO2 21 05/01/25 21:55 Oxygen Flow Rate (L/min) 1 Oxygen Delivery Method Nasal Cannula Weight: 143 lb 8.335 oz Body Mass Index (BMI) 28.0 Intake & Output: Intake and Output for Last 24 Hours 05/12/25 05/13/25 05/14/25 23:59 23:59 23:59 Intake Total 570 / 570 1450 / 1450 240 / 240 Output Total 2125 / 2325 2425 / 2425 650 / 650 Balance -1555 / -1755 -975 / -975 -410 / -410 Lab / Micro Data 05/14/25 05:40 05/14/25 05:40 Labs: Laboratory Results - last 24 hr 05/14/25 05:40: WBC 5.9, RBC 3.54 L, Hgb 11.9 L, Hct 37.7, MCV 106.5 H, MCH 33.6H, MCHC 31.6 L, RDWStd Deviation 60.6 H, RDW Coeff of Mildred 15.3 H, Plt Count 216, MPV 10.4, Sodium 142, Potassium 3.9, Chloride 103, Carbon Dioxide 33.4 H, Anion Gap 6, BUN 29 H, Creatinine 0.47 L, Estim Creat Clear Calc 44.08 L, Est GFR (MDRD) Non-Af 94, BUN/Creatinine Ratio 61.9 H, Glucose 76, Calcium 9.0, Magnesium2.3 H, NT pro BNP II 1718 Micro: Microbiology 04/30/25 14:00 Wound Drainage - Aerobic & Anaerobic Swabs Gram Stain - Final 04/30/25 14:00 Wound Drainage - Aerobic & Anaerobic Swabs Wound Culture - Final Staphylococcus hominis hominis Staphylococcus caprae 04/30/25 14:00 Wound Drainage - Aerobic & Anaerobic Swabs Anaerobic Culture - Final No growth in 5 days. Assessment & Plan Assessment/Plan (1) Physical debility: (2) Fall: QUALIFIERS: Encounter type: subsequent encounter Qualified Code(s): W19.XXXD - Unspecified fall, subsequent encounter (3) Subdural hematoma: (4) Multiple rib fractures: QUALIFIERS: Encounter type: subsequent encounter Fracture type: closed Laterality: bilateral (5) Traumatic hematoma of right knee: QUALIFIERS: Encounter type: subsequent encounter Qualified Code(s): S80.01XD - Contusion of right knee, subsequent encounter (6) Cellulitis: QUALIFIERS: Site of cellulitis: extremity Site of cellulitis of extremity: lower extremity Laterality: right Qualified Code(s): L03.115 - Cellulitis of right lower limb (7) Vertebral compression fracture: QUALIFIERS: Encounter type: subsequent encounter Fracture of vertebra location: lumbar Lumbar vertebra fracture level: L1 (8) Osteoporosis: QUALIFIERS: Osteoporosis type: age-related Presence of current pathological fracture: with current pathological fracture Encounter type: subsequent encounter Fracture healing: with delayed healing Qualified Code(s): M80.00XG - Age-related osteoporosis with current pathological fracture, unspecifiedsite, subsequent encounter for fracture with delayed healing (9) Exercise hypoxemia: (10) Chronic anticoagulation: (11) Paroxysmal atrial fibrillation: (12) Psoriatic arthritis: (13) Vitamin D deficiency: (14) Mild cognitive impairment of uncertain or unknown etiology: (15) Pulmonary nodule 1 cm or greater in diameter: (16) Left shoulder pain: QUALIFIERS: Chronicity: acute Qualified Code(s): M25.512 - Pain in left shoulder (17) Pulmonary hypertension: (18) Venous insufficiency: (19) Hypoxemia associated with sleep: PLAN: Plan 1. Continue therapy. 2. BL venous US's to r/o VTE as etiology of swelling and pain in the legs. Hasnot been on DVT prophylaxis secondary to intracerebral bleeding. 3. PA and lateral CXR today to follow up on the effusions 4. ABG today....suspect she has contraction alkalosis. 5. Continue spironolactone. K is only 3.9 today so we will give a extra dose of potassium 20 mEq toget it above 4. Magnesium is good. 6. Pt is to be in bed anytime she is not with therapy orn using the RR. 7. Recheck a BMP in the AM. 8. Diamox 250 mg IV x 1 today. Charges/Coding Visit Charges Inpatient E&M: 79718 Subs Hosp L1 05/14/25 1319 Keerthi Velasquezigndavid Signature (if applicable): CC: ~ Signed [facility]09-24-2025 Progress note [facility] Medical Records Department [address] [place] [address] Progress Note 05/13/25 1013 MR#: [id number] Acct: [id number] Name: LESLI ROSALES Rep #:[id number] : 1940 85 From: Keerthi PerryMorris Son DO PCP: Dr. Marty Guthrie MD Status:ADM I N Location: [place] [address] Subjective Subjective Afebrile VSS - Maintaining appropriate oxygen saturation on RA Oral intake - FOOD good FLUIDS poor......does not come even close to the fluid restriction.....yesterday she had only 570 recorded in. Fluid balance yesterday was -1555. The weight today is 141 pounds and 8.6 ounces. Discussed with nursing - no problems that need addressed Reviewed the THERAPY notes Medication list reviewed. Continues to c/o pain in her feet and left shoulder. Denies lightheadedness andorthopnea and CP andSOB at rest. Objective Data Objective Data Vital Signs: Vital Signs Temp Pulse Resp BP Pulse Ox O2 Del Method O2 Flow Rate 98.1 F 64 16 122/69 H 96 Nasal Cannula 2 05/13/25 05:10 05/13/25 05:10 05/13/25 05:10 05/13/25 05:10 05/13/25 08:00 05/13/25 07:14 05/13/25 08:00 FiO2 21 05/01/25 21:55 Oxygen Flow Rate (L/min) 2 Oxygen Delivery Method Nasal Cannula Weight: 141 lb 8.588 oz Body Mass Index (BMI) 27.6 Intake & Output: Intake and Output for Last 24 Hours 05/11/25 05/12/25 05/13/25 23:59 23:59 23:59 Intake Total 765 / 765 570 / 570 150 / 150 Output Total 2700 / 2700 2125 / 2325 425 / 425 Balance -1935 / -1935 -1555 / -1755 -275 / -275 Lab / Micro Data 05/14/25 05:40 05/14/25 05:40 Micro: Microbiology 04/30/25 14:00 Wound Drainage - Aerobic & Anaerobic Swabs Gram Stain - Final 04/30/25 14:00 Wound Drainage - Aerobic & Anaerobic Swabs Wound Culture - Final Staphylococcus hominis hominis Staphylococcus caprae 04/30/25 14:00 Wound Drainage - Aerobic & Anaerobic Swabs Anaerobic Culture - Final No growth in 5 days. Physical Exam Const alert and no apparent distress General Appearance: cooperative Resp normal respiratory effort Resp Narrative: No conversational dyspnea. Coarse crackles in both bases with diminished breathsounds in the right base versus left base but air exchange in the R base is improving with diuresis. No wheezing. Effort and Inspection: Negative for tachypneic Cardio no gallops Cardio Narrative: Irregular irregular with controlled ventricular response. GI normal to inspection, nondistended, normoactive bowel sounds and soft to palpation Extremity Extremity Narrative: The edema in the LE's is slowly improving with diuresis. General Extremity: edema Assessment & Plan Assessment/Plan (1) Physical debility: (2) Fall: QUALIFIERS: Encounter type: subsequent encounter Qualified Code(s): W19.XXXD - Unspecified fall, subsequent encounter (3) Subdural hematoma: (4) Multiple rib fractures: QUALIFIERS: Encounter type: subsequent encounter Fracture type: closed Laterality: bilateral (5) Traumatic hematoma of right knee: QUALIFIERS: Encounter type: subsequent encounter Qualified Code(s): S80.01XD - Contusion of right knee, subsequent encounter (6) Cellulitis: QUALIFIERS: Site of cellulitis: extremity Site of cellulitis of extremity: lower extremity Laterality: right Qualified Code(s): L03.115 - Cellulitis of right lower limb (7) Vertebral compression fracture: QUALIFIERS: Encounter type: subsequent encounter Fracture of vertebra location: lumbar Lumbar vertebra fracture level: L1 (8) Osteoporosis: QUALIFIERS: Osteoporosis type: age-related Presence of current pathological fracture: with current pathological fracture Encounter type: subsequent encounter Fracture healing: with delayed healing Qualified Code(s): M80.00XG - Age-related osteoporosis with current pathological fracture, unspecifiedsite, subsequent encounter for fracture with delayed healing (9) Exercise hypoxemia: (10) Chronic anticoagulation: (11) Paroxysmal atrial fibrillation: (12) Psoriatic arthritis: (13) Vitamin D deficiency: (14) Mild cognitive impairment of uncertain or unknown etiology: (15) Pulmonary nodule 1 cm or greater in diameter: (16) Left shoulder pain: QUALIFIERS: Chronicity: acute Qualified Code(s): M25.512 - Pain in left shoulder (17) Pulmonary hypertension: (18) Venous insufficiency: (19) Hypoxemia associated with sleep: PLAN: Plan 1. Continue therapy 2. Plan discharge for this Monday to home with home health care. 3. Son Nathaniel will come in this week to learn how to change the dressings to theright knee. She willfollow-up with Dr. Plasencia in the wound care center postdischarge 4. Add spironolactone 12.5 mg daily to the current drug regimen and start this today. 5. CBC, BMP and magnesium ordered for the a.m. I have reviewed the oxygen testing, and this patient qualifies for the home equipment and portability. The patient is mobile in the home and the community. she has desaturation with exertion and alsowith sleep. Charges/Coding Visit Charges Inpatient E&M: 95903 Subs Hosp L2 05/14/25 1256 Keerthi Son DO [facility] Signature (if applicable): CC: ~ Signed [facility]09-24-2025 Telephone encounter Note* Telephone Encounter - Claudette Mullen - 05/14/2025 11:05 AM EDT Name of Caller: Zayra ([facility]) Contact Reason for Appointment: Zayra called in requesting to schedule patient a hospital follow up as patient will be discharged on 05/16/25. Please be advised [id number] Miscellaneous Notes* Telephone Encounter - Claudette Mullen - 05/14/2025 11:05 AM EDT Name of Caller: Zayra ([facility]) Contact Reason for Appointment: Zayra called in requesting to schedule patient a hospital follow up as patient will be discharged on 05/16/25. Please be advised Office Name: MiName documented in this [facility]09-23-2025 Progress note Author Triny Todd [facility] Note Date/Time May 13, 2025 11:52am [facility] Medical Records Department [address] [place] [address] [place] [address] Progress Note - Surgery 05/13/25 1148 MR#: [id number] Acct: [id number] Name: LESLI ROSALES Rep #:[id number] : 1940 85 From: Perez COLEMAN PCP: Dr. Marty Guthrie MD Status:ADM I N Location: [place] [address]1 Subjective Subjective Patient seen this morning with Dr. Plasencia, Dr. Son and Dilma wound RN at bedside. She was sitting up in her chair in no acute distress. Denies worsening pain, numbness, tingling, weakness. Objective Data Objective Data Vital Signs: Vital Signs Temp Pulse Resp BP Pulse Ox O2 Del Method O2 Flow Rate 98.1 F 70 18 122/69 H 98 Nasal Cannula 2 05/13/25 05:10 05/13/25 11:28 05/13/25 11:28 05/13/25 05:10 05/13/25 11:28 05/13/25 11:28 05/13/25 11:28 FiO2 21 05/01/25 21:55 Oxygen Flow Rate (L/min) 2 Oxygen Delivery Method Nasal Cannula Weight: 141 lb 8.588 oz Body Mass Index (BMI) 27.6 Intake & Output: Intake and Output for Last 24 Hours 05/11/25 05/12/25 05/13/25 23:59 23:59 23:59 Intake Total 765 / 765 570 / 570 150 / 150 Output Total 2700 / 2700 2125 / 2325 425 / 425 Balance -1935 / -1935 -1555 / -1755 -275 / -275 Lab / Micro Data Attestation: I reviewed the patient's lab results. 05/07/25 07:17 05/12/25 05:38 Micro: Microbiology 04/30/25 14:00 Wound Drainage - Aerobic & Anaerobic Swabs Gram Stain - Final 04/30/25 14:00 Wound Drainage - Aerobic & Anaerobic Swabs Wound Culture - Final Staphylococcus hominis hominis Staphylococcus caprae 04/30/25 14:00 Wound Drainage - Aerobic & Anaerobic Swabs Anaerobic Culture - Final No growth in 5 days. Physical Exam Narrative Afebrile. VSS. In no acute distress Right lower extremity: Inspection: Ecchymosis and edema resolved. After packing removal there's no drainage, induration or ascending redness noted. Palpation: Diffuse patellar tenderness. No increased warmth. No pain with passive or active knee range of motion. Motor: Flexes and extends leg easily Sensation: Sensation intact to light touch Vascular: Leg is warm, dry, well perfused. Assessment & Plan Assessment/Plan (1) Traumatic hematoma of right knee: QUALIFIERS: Encounter type: subsequent encounter Qualified Code(s): S80.01XD - Contusion of right knee, subsequent encounter PLAN: Plan Continues to do well. No infection. Continue twice daily Dakin wet to dry dressing changes. Patient is pending discharge this Monday. She is scheduled to see Dr. Plasencia in wound clinic on 05/19. Will follow while she is still here. Charges/Coding Visit Charges Inpatient E&M: 11173 Subs Hosp L2 05/13/25 1152 <Electronically signed by Perez COLEMAN> Cosigner Signature (if applicable): CC: ~ Signed [facility] Work Phone: 1(981) 886-974909-23-2025 Progress note [facility] Medical Records Department [address] [place] [address] Progress Note - Surgery 05/13/25 1148 MR#: [id number] Acct: [id number] Name: LESLI ROSALES Rep #:[id number] : 1940 85 From: Perez COLEMAN PCP: Dr. Marty Guthrie MD Status:ADM I N Location: [place] [address] Subjective Subjective Patient seen this morning with Dr. Plasnecia, Dr. Son and Dilma wound RN at bedside. She was sitting up in her chair in no acute distress. Denies worsening pain, numbness, tingling, weakness. Objective Data Objective Data Vital Signs: Vital Signs Temp Pulse Resp BP Pulse Ox O2 Del Method O2 Flow Rate 98.1 F 70 18 122/69 H 98 Nasal Cannula 2 05/13/25 05:10 05/13/25 11:28 05/13/25 11:28 05/13/25 05:10 05/13/25 11:28 05/13/25 11:28 05/13/25 11:28 FiO2 21 05/01/25 21:55 Oxygen Flow Rate (L/min) 2 Oxygen Delivery Method Nasal Cannula Weight: 141 lb 8.588 oz Body Mass Index (BMI) 27.6 Intake & Output: Intake and Output for Last 24 Hours 05/11/25 05/12/25 05/13/25 23:59 23:59 23:59 Intake Total 765 / 765 570 / 570 150 / 150 Output Total 2700 / 2700 2125 / 2325 425 / 425 Balance -1935 / -1935 -1555 / -1755 -275 / -275 Lab / Micro Data Attestation: I reviewed the patient's lab results. 05/07/25 07:17 05/12/25 05:38 Micro: Microbiology 04/30/25 14:00 Wound Drainage - Aerobic & Anaerobic Swabs Gram Stain - Final 04/30/25 14:00 Wound Drainage - Aerobic & Anaerobic Swabs Wound Culture - Final Staphylococcus hominis hominis Staphylococcus caprae 04/30/25 14:00 Wound Drainage - Aerobic & Anaerobic Swabs Anaerobic Culture - Final No growth in 5 days. Physical Exam Narrative Afebrile. VSS. In no acute distress Right lower extremity: Inspection: Ecchymosis and edema resolved. After packing removal there's no drainage, induration orascending redness noted. Palpation: Diffuse patellar tenderness. No increased warmth. No pain with passive or active knee range of motion. Motor: Flexes and extends leg easily Sensation: Sensation intact to light touch Vascular: Leg is warm, dry, well perfused. Assessment & Plan Assessment/Plan (1) Traumatic hematoma of right knee: QUALIFIERS: Encounter type: subsequent encounter Qualified Code(s): S80.01XD - Contusion of right knee, subsequent encounter PLAN: Plan Continues to do well. No infection. Continue twice daily Dakin wet to dry dressing changes. Patient is pending discharge this Monday. She is scheduled to see Dr. Plasencia in wound clinic on 05/19. Will follow while she is still here. Charges/Coding Visit Charges Inpatient E&M: 07223 Subs Hosp L2 05/13/25 1152 Cosigner Signature (if applicable): CC: ~ Signed [facility]09-22-2025 Progress note Author Keerthi Son [facility] Note Date/Time May 12, 2025 3:05pm [facility] Medical Records Department [address] [place] [address] Progress Note 05/12/25917 MR#: [id number] Acct: [id number] Name: LESLI ROSALES Rep #:[id number] : 1940 85 From: Keerthi Son PCP: Dr. Marty Guthrie MD Status:ADM I N Location: [place] [address] Subjective Subjective Seen on TEAM rounds today. Son Nathaniel was only available for a short time to participate by phone. Afebrile VSS - Maintaining appropriate oxygen saturation on RA Oral intake - FOOD good FLUIDS poor yesterday. Only took 765 p.o. when she had 2700 pounds of 1925. Has been in negative fluid balance for the past 4 days. She was started on IV Lasix 40 mg twice daily on Monday due to poor response to p.o. Lasix. Her weight today is 143 pounds and 15 ounces which is down from 147 pounds and 11 ounces on 05/08/2025. Weight in December 2024 was 141 pounds to 144 pounds. Discussed with nursing - no problems that need addressed Reviewed the THERAPY notes Medication list reviewed. Still requiring as needed oxycodone 3-4 times daily for breakthrough pain. Generally takes 4 on Monday.......may be related to the fact that she has no therapy on Monday and she is not moving around. Lab from this morning was personally reviewed. Odium is normal at 143 and the potassium is low normal at 3.5. BUN is stable at 21 and the creatinine is stable at 0.38. Vitamin D level is still low at 25.6 despite receiving 50 mcg of cholecalciferol. Denies lightheadedness and SOB. Not coughing. Denies orthopnea. Making good progress with therapy. Continues to c/o multiple somatic complaints........painin the feet yet ambulated 120' today with a FWW. C/O shoulder pain.......I haverecommended she follow up with Dr. Giron post PA for possible rotator cuff tendinopathy. she is not restless or fidgety and she is not grimacing. Has been on narcotics for chronic pain for many years. Able to take a deep breath now with no grimacing or splinting of her respiration on the left. Did not c/o pain when I placed my stethoscope on the Left posterior chest when I was listening to BS's. Started c/o severe pain in the feet before I even touched her legs/feet and withdrew with even very light touch. Objective Data Objective Data Vital Signs: Vital Signs Temp Pulse Resp BP Pulse Ox O2 Del Method O2 Flow Rate 99.0 F 60 16 120/63 100 Nasal Cannula 2 05/12/25 06:00 05/12/25 07:22 05/12/25 07:22 05/12/25 06:00 05/12/25 07:22 05/12/25 07:22 05/12/25 09:02 FiO2 21 05/01/25 21:55 Oxygen Flow Rate (L/min) 2 Oxygen Delivery Method Nasal Cannula Weight: 143 lb 15.39 oz Body Mass Index (BMI) 28.0 Intake & Output: Intake and Output for Last 24 Hours 05/10/25 05/11/25 05/12/25 23:59 23:59 23:59 Intake Total 1260 / 1260 765 / 765 40 / 40 Output Total 1700 / 1700 2700 / 2700 200 / 200 Balance -440 / -440 -1935 / -1935 -160 / -160 Lab / Micro Data 05/07/25 07:17 05/12/25 05:38 Labs: Laboratory Results - last 24 hr 05/12/25 05:38: Sodium 143, Potassium 3.5, Chloride 104, Carbon Dioxide 31.8, Anion Gap 7, BUN 21 H, Creatinine 0.38 L, Estim Creat Clear Calc 44.48 L, Est GFR (MDRD) Non-Af 99, BUN/Creatinine Ratio 54.1 H, Glucose 78, Calcium 8.8 Micro: Microbiology 04/30/25 14:00 Wound Drainage - Aerobic & Anaerobic Swabs Gram Stain - Final 04/30/25 14:00 Wound Drainage - Aerobic & Anaerobic Swabs Wound Culture - Final Staphylococcus hominis hominis Staphylococcus caprae 04/30/25 14:00 Wound Drainage - Aerobic & Anaerobic Swabs Anaerobic Culture - Final No growth in 5 days. Physical Exam Const alert and no apparent distress Constitutional Narrative: Talking a lot and interacting with staff. General Appearance: cooperative Resp Resp Narrative: coarse crackles in both bases and still with diminished BS's in R base araceli. Denies orthopnea. Cardio regular rate, regular rhythm and no gallops Extremity Extremity Narrative: Less edema today but, still with pitting edema distal to the knee.....no posterior thigh edema today. General Extremity: edema Assessment & Plan Assessment/Plan (1) Physical debility: (2) Fall: QUALIFIERS: Encounter type: subsequent encounter Qualified Code(s): W19.XXXD - Unspecified fall, subsequent encounter (3) Subdural hematoma: (4) Multiple rib fractures: QUALIFIERS: Encounter type: subsequent encounter Fracture type: closed Laterality: bilateral (5) Traumatic hematoma of right knee: (6) Cellulitis: QUALIFIERS: Site of cellulitis: extremity Site of cellulitis of extremity: lower extremity Laterality: right Qualified Code(s): L03.115 - Cellulitis of right lower limb (7) Vertebral compression fracture: QUALIFIERS: Encounter type: subsequent encounter Fracture of vertebra location: lumbar Lumbar vertebra fracture level: L1 (8) Osteoporosis: QUALIFIERS: Osteoporosis type: age-related Presence of current pathological fracture: with current pathological fracture Encounter type: subsequent encounter Fracture healing: with delayed healing Qualified Code(s): M80.00XG - Age-related osteoporosis with current pathological fracture, unspecified site, subsequent encounter for fracture with delayed healing (9) Exercise hypoxemia: (10) Chronic anticoagulation: (11) Paroxysmal atrial fibrillation: (12) Psoriatic arthritis: (13) Vitamin D deficiency: (14) Mild cognitive impairment of uncertain or unknown etiology: (15) Pulmonary nodule 1 cm or greater in diameter: (16) Left shoulder pain: QUALIFIERS: Chronicity: acute Qualified Code(s): M25.512 - Pain in left shoulder (17) Pulmonary hypertension: (18) Venous insufficiency: PLAN: Plan 1. Continue therapy 2. Increase vitamin D to 50 mcg twice daily. 3. CBC, BMP and magnesium on Monday 4. Continue Lasix 40 mg IV twice daily 5. 40 mill equivalents of potassium chloride p.o. today in addition to the 20 mEq already scheduled daily. 6. Orthostatics today. 7. Hold Atenolol if the systolic is less than 100 or the HR is less than 60 Charges/Coding Visit Charges Inpatient E&M: 13296 Subs Hosp L2 05/12/25 3582 <Electronically signed by Keerthi Son DO> Keerthi Son DO Cosigner Signature (if applicable): CC: ~ Signed [facility] Work Phone: 1([phone]) 112-141909-22-2025 Progress note [facility] Medical Records Department [address] [place] [address] Progress Note 05/12/25 0918 MR#: [id number] Acct: [id number] Name: LESLI ROSALES Rep #:[id number] : 1940 85 From: Keerthi Son DO PCP: Dr. Marty Guthrie MD Status:ADM I N Location: [place] [address] Subjective Subjective Seen on TEAM rounds today. Son Nathaniel was only available for a short time to participate by phone. Afebrile VSS - Maintaining appropriate oxygen saturation on RA Oral intake - FOOD good FLUIDS poor yesterday. Only took 765 p.o. when she had 2700 pounds of 1924.Has been in negative fluid balance for the past 4 days. She was started on IV Lasix 40 mg twice daily on Monday due to poor response to p.o. Lasix. Her weight today is 143 pounds and 15 ounces which is down from 147 pounds and 11 ounces on 05/08/2025. Weight in December 2024 was 141 pounds to 144 pounds. Discussed with nursing - no problems that need addressed Reviewed the THERAPY notes Medication list reviewed. Still requiring as needed oxycodone 3-4 times daily for breakthrough pain. Generally takes 4 on Monday.......may be related to the fact that she has no therapy on Monday andshe is not moving around. Lab from this morning was personally reviewed. Odium is normal at 143 and the potassium is low normal at 3.5. BUN is stable at 21 and the creatinine is stable at 0.38. Vitamin D level is still low at25.6 despite receiving 50 mcg of cholecalciferol. Denies lightheadedness and SOB. Not coughing. Denies orthopnea. Making good progress with therapy. Continues to c/o multiple somatic complaints........painin the feet yet ambulated 120' today with a FWW. C/O shoulder pain.......I haverecommended she follow up with Dr. Giron post PA for possible rotator cuff tendinopathy. she is not restless or fidgety and she is not grimacing. Has been on narcotics for chronic pain for many years. Able to take a deep breath now with no grimacing or splinting of her respiration on the left. Did not c/o pain when I placed my stethoscope on the Left posterior chest when I was listening to BS's. Started c/o severe pain in the feet before I even touched her legs/feet and withdrew with even very light touch. Objective Data Objective Data Vital Signs: Vital Signs Temp Pulse Resp BP Pulse Ox O2 Del Method O2 Flow Rate 99.0 F 60 16 120/63 100 Nasal Cannula 2 05/12/25 06:00 05/12/25 07:22 05/12/25 07:22 05/12/25 06:00 05/12/25 07:22 05/12/25 07:22 05/12/25 09:02 FiO2 21 05/01/25 21:55 Oxygen Flow Rate (L/min) 2 Oxygen Delivery Method Nasal Cannula Weight: 143 lb 15.39 oz Body Mass Index (BMI) 28.0 Intake & Output: Intake and Output for Last 24 Hours 05/10/25 05/11/25 05/12/25 23:59 23:59 23:59 Intake Total 1260 / 1260 765 / 765 40 / 40 Output Total 1700 / 1700 2700 / 2700 200 / 200 Balance -440 / -440 -1935 / -1935 -160 / -160 Lab / Micro Data 05/07/25 07:17 05/12/25 05:38 Labs: Laboratory Results - last 24 hr 05/12/25 05:38: Sodium 143, Potassium 3.5, Chloride 104, Carbon Dioxide 31.8, Anion Gap 7, BUN 21 H, Creatinine 0.38 L, Estim Creat Clear Calc 44.48 L, Est GFR (MDRD) Non-Af 99, BUN/Creatinine Ratio 54.1 H, Glucose 78, Calcium 8.8 Micro: Microbiology 04/30/25 14:00 Wound Drainage - Aerobic & Anaerobic Swabs Gram Stain - Final 04/30/25 14:00 Wound Drainage - Aerobic & Anaerobic Swabs Wound Culture - Final Staphylococcus hominis hominis Staphylococcus caprae 04/30/25 14:00 Wound Drainage - Aerobic & Anaerobic Swabs Anaerobic Culture - Final No growth in 5 days. Physical Exam Const alert and no apparent distress Constitutional Narrative: Talking a lot and interacting with staff. General Appearance: cooperative Resp Resp Narrative: coarse crackles in both bases and still with diminished BS's in R base araceli. Denies orthopnea. Cardio regular rate, regular rhythm and no gallops Extremity Extremity Narrative: Less edema today but, still with pitting edema distal to the knee.....no posterior thigh edema today. General Extremity: edema Assessment & Plan Assessment/Plan (1) Physical debility: (2) Fall: QUALIFIERS: Encounter type: subsequent encounter Qualified Code(s): W19.XXXD - Unspecified fall, subsequent encounter (3) Subdural hematoma: (4) Multiple rib fractures: QUALIFIERS: Encounter type: subsequent encounter Fracture type: closed Laterality: bilateral (5) Traumatic hematoma of right knee: (6) Cellulitis: QUALIFIERS: Site of cellulitis: extremity Site of cellulitis of extremity: lower extremity Laterality: right Qualified Code(s): L03.115 - Cellulitis of right lower limb (7) Vertebral compression fracture: QUALIFIERS: Encounter type: subsequent encounter Fracture of vertebra location: lumbar Lumbar vertebra fracture level: L1 (8) Osteoporosis: QUALIFIERS: Osteoporosis type: age-related Presence of current pathological fracture: with current pathological fracture Encounter type: subsequent encounter Fracture healing: with delayed healing Qualified Code(s): M80.00XG - Age-related osteoporosis with current pathological fracture, unspecifiedsite, subsequent encounter for fracture with delayed healing (9) Exercise hypoxemia: (10) Chronic anticoagulation: (11) Paroxysmal atrial fibrillation: (12) Psoriatic arthritis: (13) Vitamin D deficiency: (14) Mild cognitive impairment of uncertain or unknown etiology: (15) Pulmonary nodule 1 cm or greater in diameter: (16) Left shoulder pain: QUALIFIERS: Chronicity: acute Qualified Code(s): M25.512 - Pain in left shoulder (17) Pulmonary hypertension: (18) Venous insufficiency: PLAN: Plan 1. Continue therapy 2. Increase vitamin D to 50 mcg twice daily. 3. CBC, BMP and magnesium on Monday 4. Continue Lasix 40 mg IV twice daily 5. 40 mill equivalents of potassium chloride p.o. today in addition to the 20 mEq already scheduleddaily. 6. Orthostatics today. 7. Hold Atenolol if the systolic is less than 100 or the HR is less than 60 Charges/Coding Visit Charges Inpatient E&M: 82626 Subs Hosp L2 05/12/25 1505 Keerthi AmadorMorris Adelaida PAULSON Cosigner Signature (if applicable): CC: ~ Signed [facility]09-19-2025 Progress note Author Keerthi Son [facility] Note Date/Time May 09, 2025 10:23am [facility] Medical Records Department [address] [place] [address] Progress Note 05/09/25 0938 MR#: [id number] Acct: [id number] Name: LESLI ROSALES Rep #:[id number] : 1940 85 From: Keerthi Son DO PCP: Dr. Marty Guthrie MD Status:ADM I N Location: [place] [address] Subjective Subjective Afebrile VSS - Maintaining appropriate oxygen saturation on RA Oral intake - FOOD good FLUIDS - fluid balance negative yesterday. Weight is down approximately 1 lb since yesterday. Discussed with nursing - no problems that need addressed Reviewed the THERAPY notes Medication list reviewed. Consistently taking 3 doses of oxycodone daily for breakthrough pain. Denies SOB, lightheadedness, palpitations, N/V/abd pain and dysuria. Continues to complain of L shoulder pain. Fluid balance was mildly negative yesterday after increasing the lasix to 40 mg. Objective Data Objective Data Vital Signs: Vital Signs Temp Pulse Resp BP Pulse Ox O2 Del Method O2 Flow Rate 98.5 F 75 16 119/57 L 95 Nasal Cannula 2 05/09/25 06:00 05/09/25 08:22 05/09/25 06:51 05/09/25 08:22 05/09/25 06:51 05/09/25 06:51 05/09/25 06:51 FiO2 21 05/01/25 21:55 Oxygen Flow Rate (L/min) 2 Oxygen Delivery Method Nasal Cannula Weight: 146 lb 13.246 oz Body Mass Index (BMI) 28.6 Intake & Output: Intake and Output for Last 24 Hours 05/07/25 05/08/25 05/09/25 23:59 23:59 23:59 Intake Total 860 / 860 820 / 820 120 / 120 Output Total 400 / 400 2250 / 2450 400 / 400 Balance 460 / 460 -1430 / -1630 -280 / -280 Lab / Micro Data 05/07/25 07:17 05/07/25 07:17 Micro: Microbiology 04/30/25 14:00 Wound Drainage - Aerobic & Anaerobic Swabs Gram Stain - Final 04/30/25 14:00 Wound Drainage - Aerobic & Anaerobic Swabs Wound Culture - Final Staphylococcus hominis hominis Staphylococcus caprae 04/30/25 14:00 Wound Drainage - Aerobic & Anaerobic Swabs Anaerobic Culture - Final No growth in 5 days. Physical Exam Const alert, oriented x3 and no apparent distress Resp normal respiratory effort Resp Narrative: No cough, not tachypneic, no conversational dyspnea. Denies orthopnea. Lungs are diminished in the bases, R>L and there are crackles in the bases........ no wheezing. Cardio no gallops Cardio Narrative: Irregular irregular rhythm with controlled ventricular response. On atenolol. GI normal to inspection, nondistended, normoactive bowel sounds, soft to palpation and non-tender Extremity Extremity Narrative: Still with pitting edema of the LE's........extending into the posterior thighs.No edema in the flanks. MORALES wraps are in place. Skin Rashes: no rashes Assessment & Plan Assessment/Plan (1) Physical debility: (2) Fall: QUALIFIERS: Encounter type: subsequent encounter Qualified Code(s): W19.XXXD - Unspecified fall, subsequent encounter (3) Subdural hematoma: (4) Multiple rib fractures: QUALIFIERS: Encounter type: subsequent encounter Fracture type: closed Laterality: bilateral (5) Traumatic hematoma of right knee: (6) Cellulitis: QUALIFIERS: Site of cellulitis: extremity Site of cellulitis of extremity: lower extremity Laterality: right Qualified Code(s): L03.115 - Cellulitis of right lower limb (7) Vertebral compression fracture: QUALIFIERS: Encounter type: subsequent encounter Fracture of vertebra location: lumbar Lumbar vertebra fracture level: L1 (8) Osteoporosis: QUALIFIERS: Osteoporosis type: age-related Presence of current pathological fracture: with current pathological fracture Encounter type: subsequent encounter Fracture healing: with delayed healing Qualified Code(s): M80.00XG - Age-related osteoporosis with current pathological fracture, unspecified site, subsequent encounter for fracture with delayed healing (9) Exercise hypoxemia: (10) Chronic anticoagulation: (11) Paroxysmal atrial fibrillation: (12) Psoriatic arthritis: (13) Vitamin D deficiency: (14) Mild cognitive impairment of uncertain or unknown etiology: (15) Pulmonary nodule 1 cm or greater in diameter: (16) Left shoulder pain: QUALIFIERS: Chronicity: acute Qualified Code(s): M25.512 - Pain in left shoulder PLAN: Plain x-ray with no fracture or dislocation. Possible rotator cuff tendinopathy. Has seen Dr. Giron in the past for a right shoulder replacement. Recommended she follow-up with Dr. Giron postdischarge from rehab. (17) Pulmonary hypertension: PLAN: Mild. RV systolic pressure estimated at 36 in October of 2024. Underestimated? (18) Venous insufficiency: PLAN: Plan 1. Continue therapy 2. Increase Lasix to 40 mg twice daily. Continue to monitor daily weights and accurate intake and output. Continue fluid restriction to 1300 cc daily. 3. BMP ordered for the a.m. 4. No changes to the pain regimen. Pain is adequately controlled. 5. Recheck a Vitamin D level in the AM. Level was low on 04/30/2025 despite taking 50 mcg of cholecalciferol daily. she maintains that she never misses taking this medication at home. If the level is still low will need to increasethe dose to 75 mcg daily Charges/Coding Visit Charges Inpatient E&M: 77852 Subs Hosp L1 05/09/25 1023 <Electronically signed by Keerthi Son DO> Keerthi Son DO Cosigner Signature (if applicable): CC: ~ Signed [facility] Work Phone: 1(490) 504-372309-19-2025 Progress note [facility] Medical Records Department [address] [place] [address] Progress Note 05/09/25 0938 MR#: [id number] Acct: [id number] Name: LESLI ROSALES Rep #:[id number] : 1940 85 From: Keerthi Son DO PCP: Dr. Marty Guthrie MD Status:ADM I N Location: [place] [address] Subjective Subjective Afebrile VSS - Maintaining appropriate oxygen saturation on RA Oral intake - FOOD good FLUIDS - fluid balance negative yesterday. Weight is down approximately 1 lb since yesterday. Discussed with nursing - no problems that need addressed Reviewed the THERAPY notes Medication list reviewed. Consistently taking 3 doses of oxycodone daily for breakthrough pain. Denies SOB, lightheadedness, palpitations, N/V/abd pain and dysuria. Continues to complain of L shoulder pain. Fluid balance was mildly negative yesterday after increasing the lasix to 40 mg. Objective Data Objective Data Vital Signs: Vital Signs Temp Pulse Resp BP Pulse Ox O2 Del Method O2 Flow Rate 98.5 F 75 16 119/57 L 95 Nasal Cannula 2 05/09/25 06:00 05/09/25 08:22 05/09/25 06:51 05/09/25 08:22 05/09/25 06:51 05/09/25 06:51 05/09/25 06:51 FiO2 21 05/01/25 21:55 Oxygen Flow Rate (L/min) 2 Oxygen Delivery Method Nasal Cannula Weight: 146 lb 13.246 oz Body Mass Index (BMI) 28.6 Intake & Output: Intake and Output for Last 24 Hours 05/07/25 05/08/25 05/09/25 23:59 23:59 23:59 Intake Total 860 / 860 820 / 820 120 / 120 Output Total 400 / 400 2250 / 2450 400 / 400 Balance 460 / 460 -1430 / -1630 -280 / -280 Lab / Micro Data 05/07/25 07:17 05/07/25 07:17 Micro: Microbiology 04/30/25 14:00 Wound Drainage - Aerobic & Anaerobic Swabs Gram Stain - Final 04/30/25 14:00 Wound Drainage - Aerobic & Anaerobic Swabs Wound Culture - Final Staphylococcus hominis hominis Staphylococcus caprae 04/30/25 14:00 Wound Drainage - Aerobic & Anaerobic Swabs Anaerobic Culture - Final No growth in 5 days. Physical Exam Const alert, oriented x3 and no apparent distress Resp normal respiratory effort Resp Narrative: No cough, not tachypneic, no conversational dyspnea. Denies orthopnea. Lungs are diminished in the bases, R>L and there are crackles in the bases........ no wheezing. Cardio no gallops Cardio Narrative: Irregular irregular rhythm with controlled ventricular response. On atenolol. GI normal to inspection, nondistended, normoactive bowel sounds, soft to palpation and non-tender Extremity Extremity Narrative: Still with pitting edema of the LE's........extending into the posterior thighs.No edema in the flanks. MORALES wraps are in place. Skin Rashes: no rashes Assessment & Plan Assessment/Plan (1) Physical debility: (2) Fall: QUALIFIERS: Encounter type: subsequent encounter Qualified Code(s): W19.XXXD - Unspecified fall, subsequent encounter (3) Subdural hematoma: (4) Multiple rib fractures: QUALIFIERS: Encounter type: subsequent encounter Fracture type: closed Laterality: bilateral (5) Traumatic hematoma of right knee: (6) Cellulitis: QUALIFIERS: Site of cellulitis: extremity Site of cellulitis of extremity: lower extremity Laterality: right Qualified Code(s): L03.115 - Cellulitis of right lower limb (7) Vertebral compression fracture: QUALIFIERS: Encounter type: subsequent encounter Fracture of vertebra location: lumbar Lumbar vertebra fracture level: L1 (8) Osteoporosis: QUALIFIERS: Osteoporosis type: age-related Presence of current pathological fracture: with current pathological fracture Encounter type: subsequent encounter Fracture healing: with delayed healing Qualified Code(s): M80.00XG - Age-related osteoporosis with current pathological fracture, unspecifiedsite, subsequent encounter for fracture with delayed healing (9) Exercise hypoxemia: (10) Chronic anticoagulation: (11) Paroxysmal atrial fibrillation: (12) Psoriatic arthritis: (13) Vitamin D deficiency: (14) Mild cognitive impairment of uncertain or unknown etiology: (15) Pulmonary nodule 1 cm or greater in diameter: (16) Left shoulder pain: QUALIFIERS: Chronicity: acute Qualified Code(s): M25.512 - Pain in left shoulder PLAN: Plain x-ray with no fracture or dislocation. Possible rotator cuff tendinopathy. Has seen in the past for a right shoulder replacement. Recommended she follow-up with Dr. Giron postdischarge from rehab. (17) Pulmonary hypertension: PLAN: Mild. RV systolic pressure estimated at 36 in October of 2024. Underestimated? (18) Venous insufficiency: PLAN: Plan 1. Continue therapy 2. Increase Lasix to 40 mg twice daily. Continue to monitor daily weights and accurate intake and output. Continue fluid restriction to 1300 cc daily. 3. BMP ordered for the a.m. 4. No changes to the pain regimen. Pain is adequately controlled. 5. Recheck a Vitamin D level in the AM. Level was low on 04/30/2025 despite taking 50 mcg of cholecalciferol daily. she maintains that she never misses taking this medication at home. If the level is still low will need to increasethe dose to 75 mcg daily Charges/Coding Visit Charges Inpatient E&M: 30022 Subs Hosp L1 05/09/25 1023 Keerthi Son Cosigner Signature (if applicable): CC: ~ Signed [facility]09-18-2025 Progress note Author Keerthi Son [facility] Note Date/Time May 08, 2025 3:11pm [facility] Medical Records Department [address] [place] [address] Progress Note 05/08/25 0858 MR#: [id number] Acct: [id number] Name: LESLI ROSALES Rep #:[id number] : 1940 85 From: Keerthi Son DO PCP: Dr. Marty Guthrie MD Status:ADM I N Location: [place] [address] Subjective Subjective Afebrile VSS - Maintaining appropriate oxygen saturation on RA Oral intake - FOOD good FLUIDS usually good Discussed with nursing - no problems that need addressed Reviewed the THERAPY notes Medication list reviewed. She had 3 doses of as needed oxycodone 5 mg yesterday. She has had 1 so far today. All recent lab was personally reviewed. White blood cell count is normal at 8.5. Differential is unremarkable. Hemoglobin is within normal limits at 12.7. Platelets are normal. Sodium is normal at 140 and the potassium is stable at 3.7. The BUN is 23 with a stable creatinine of 0.39. BNP is 1637 which is unremarkable in this patient. I reviewed the PA and lateral chest x-ray. There is consolidation in the right mid and lower lung and moderate right and small left pleural effusions. The right pulmonary nodule measures 1.2 cm which is similar to prior. Lesli denies chest pain, palpitations, shortness of breath at rest, dysuria, nausea/vomiting/abdominal pain, lightheadedness. Today she is complaining of some pain in her left foot. Has not complained of left shoulder pain today. The arthritis compounded cream seems to be helping. Objective Data Objective Data Vital Signs: Vital Signs Temp Pulse Resp BP Pulse Ox O2 Del Method O2 Flow Rate 98.4 F 60 17 118/56 L 98 Nasal Cannula 2 05/08/25 06:00 05/08/25 08:38 05/08/25 08:38 05/08/25 06:00 05/08/25 08:38 05/08/25 08:38 05/08/25 08:38 FiO2 21 05/01/25 21:55 Oxygen Flow Rate (L/min) 2 Oxygen Delivery Method Nasal Cannula Weight: 146 lb 2.664 oz Body Mass Index (BMI) 28.5 Intake & Output: Intake and Output for Last 24 Hours 05/06/25 05/07/25 05/08/25 23:59 23:59 23:59 Intake Total 2019 860 / 860 460 / 460 Output Total 1949 / 1949 400 / 400 350 / 350 Balance 70 / 70 460 / 460 110 / 110 Lab / Micro Data 05/07/25 07:17 05/07/25 07:17 Micro: Microbiology 04/30/25 14:00 Wound Drainage - Aerobic & Anaerobic Swabs Gram Stain - Final 04/30/25 14:00 Wound Drainage - Aerobic & Anaerobic Swabs Wound Culture - Final Staphylococcus hominis hominis Staphylococcus caprae 04/30/25 14:00 Wound Drainage - Aerobic & Anaerobic Swabs Anaerobic Culture - Final No growth in 5 days. Physical Exam Const alert Resp Resp Narrative: Coarse crackles in both bases that do not resolve after few deep breaths. No wheezing. Fair air exchange. No cough with taking deep breaths. No orthopnea. Effort and Inspection: Negative for tachypneic Cardio no gallops Cardio Narrative: Irregularly irregular with controlled ventricular response GI normal to inspection, nondistended, normoactive bowel sounds, soft to palpation and non-tender Extremity no calf tenderness General Extremity: edema Assessment & Plan Assessment/Plan (1) Physical debility: (2) Fall: QUALIFIERS: Encounter type: subsequent encounter Qualified Code(s): W19.XXXD - Unspecified fall, subsequent encounter (3) Subdural hematoma: (4) Multiple rib fractures: QUALIFIERS: Encounter type: subsequent encounter Fracture type: closed Laterality: bilateral (5) Traumatic hematoma of right knee: (6) Cellulitis: QUALIFIERS: Site of cellulitis: extremity Site of cellulitis of extremity: lower extremity Laterality: right Qualified Code(s): L03.115 - Cellulitis of right lower limb (7) Vertebral compression fracture: QUALIFIERS: Encounter type: subsequent encounter Fracture of vertebra location: lumbar Lumbar vertebra fracture level: L1 (8) Osteoporosis: QUALIFIERS: Osteoporosis type: age-related Presence of current pathological fracture: with current pathological fracture Encounter type: subsequent encounter Fracture healing: with delayed healing Qualified Code(s): M80.00XG - Age-related osteoporosis with current pathological fracture, unspecified site, subsequent encounter for fracture with delayed healing (9) Exercise hypoxemia: (10) Chronic anticoagulation: (11) Paroxysmal atrial fibrillation: (12) Psoriatic arthritis: (13) Vitamin D deficiency: (14) Mild cognitive impairment of uncertain or unknown etiology: (15) Pulmonary nodule 1 cm or greater in diameter: (16) Left shoulder pain: QUALIFIERS: Chronicity: acute Qualified Code(s): M25.512 - Pain in left shoulder PLAN: Plan 1. Continue therapy 2. Increase Lasix to 40 mg daily x 2 days and then resume 20 mg daily. 3. Potassium chloride 20 mill equivalents today and 20 mEq tomorrow then discontinue. 4. Recheck a BMP on Monday. 5. No changes to the current drug regimen. 6. Start Mucinex 1200 mg twice daily 7. Albuterol aerosols every 4 hours while awake for a few days to see if we canimprove aeration to the R mid and lower lung mccarty. Likely would not tolerate percussion. 8. Add a fluid restriction of 1300 cc daily. Charges/Coding Visit Charges Inpatient E&M: 69331 Subs Hosp L1 05/08/25 1511 <Electronically signed by Keerthi Son DO> Keerthi Son DO Cosigner Signature (if applicable): CC: ~ Signed [facility] Work Phone: 1(337) 975-151709-18-2025 Progress note Author Triny Todd [facility] Note Date/Time May 08, 2025 1:59pm [facility] Medical Records Department [address] [place] [address] Progress Note - Surgery 05/01/25 1302 MR#: [id number] Acct: [id number] Name: LESLI ROSALES Rep #:[id number] : 1940 85 From: Perez COLEMAN PCP: Dr. Marty Guthrie MD Status:ADM I N Location: [place] EF564-7 Subjective Subjective Patient seen this morning with Dr. Plasencia at TCU bedside. She was sitting up in her chair in no acute distress. She notes no increase in pain at rest or with ambulation. Denies fever, chills, numbness, tingling, new pain. Objective Data Objective Data Vital Signs: Vital Signs Temp Pulse Resp BP Pulse Ox O2 Del Method O2 Flow Rate 97.6 F L 65 15 125/70 H 95 Nasal Cannula 1 05/01/25 05:18 05/01/25 05:18 05/01/25 05:18 05/01/25 05:18 05/01/25 11:10 05/01/25 11:10 05/01/25 11:10 Oxygen Flow Rate (L/min) 1 Oxygen Delivery Method Nasal Cannula Weight: 136 lb 0.015 oz Body Mass Index (BMI) 26.5 Intake & Output: Intake and Output for Last 24 Hours 04/29/25 04/30/25 05/01/25 23:59 23:59 23:59 Intake Total 1540 / 1690 1057 / 1057 Output Total 375 / 375 1350 / 1350 200 / 200 Balance -375 / -375 190 / 340 857 / 857 Lab / Micro Data Attestation: I reviewed the patient's lab results. 04/30/25 07:35 04/30/25 07:35 Labs: Laboratory Results - last 24 hr 04/30/25 07:35: Vitamin D 25-Hydroxy 27.6 L Micro: Microbiology 04/30/25 14:00 Wound Drainage - Aerobic & Anaerobic Swabs Gram Stain - Final Physical Exam Narrative Today 05/01 Afebrile. VSS. In no acute distress Right lower extremity: Inspection: Ecchymosis and edema improved. Packing mostly dry. After packing removal there's no drainage, induration or ascending redness noted. Palpation: No increased warmth. No pain with passive or active knee range of motion. No lateral or posterior knee tenderness to palpation. Motor: Flexes and extends leg easily Sensation: Sensation intact to light touch Vascular: Leg is warm, dry, well perfused. . Prior to I&D Charges/Coding Visit Charges Office Visits / Consults: 47872 OV L2 New 15min 05/01/25 1308 <Electronically signed by Perez COLEMAN> Cosigner Signature (if applicable): CC: ~ Signed ADDENDUM by VIRGINIA Khan on 05/01/25 at 1310 Addendum Assessment and Plan: Continue total 7 day course of Keflex Continue dry packing dressing twice daily. Monitor for ascending infection, concerns for septic arthritis. We will continue to follow 05/01/25 1310<Electronically signed by Perez COLEMAN> Cosigner Signature (if applicable): cc: ~* Signed ADDENDUM by VIRGINIA Khan on 05/08/25 at 1359 Addendum Correction: Patient was seen in rehab. 05/08/25 135<Electronically signed by Perez COLEMAN> Cosigner Signature (if applicable): cc: ~* Signed [facility] Work Phone: 1(455) 554-658109-18-2025 Progress note Author Triny robby [facility] Note Date/Time May 08, 2025 1:59pm [facility] Medical Records Department [address] [place] [address] Progress Note - Surgery 05/02/25 1246 MR#: [id number] Acct: [id number] Name: LESLI ROSALES Rep #:[id number] : 1940 85 From: Perez COLEMAN PCP: Dr. Mraty Guthrie MD Status:ADM I N Location: [place] [address] Subjective Subjective Patient seen this morning with Dr. Plasencia and wound RN at TCU bedside. She was sitting up in her chair in no acute distress. She notes no increase in pain at rest or with ambulation. Denies fever, chills, numbness, tingling, new pain. Objective Data Objective Data Vital Signs: Vital Signs Temp Pulse Resp BP Pulse Ox O2 Del Method O2 Flow Rate 98.3 F 77 16 133/76 H 88 Room Air 2 05/02/25 06:00 05/02/25 06:00 05/02/25 06:00 05/02/25 06:00 05/02/25 06:00 05/02/25 09:00 05/02/25 12:04 FiO2 21 05/01/25 21:55 Oxygen Flow Rate (L/min) 2 Oxygen Delivery Method Room Air Weight: 143 lb 4.807 oz Body Mass Index (BMI) 28.0 Intake & Output: Intake and Output for Last 24 Hours 04/30/25 05/01/25 05/02/25 23:59 23:59 23:59 Intake Total 1540 / 1690 1297 / 1397 440 / 440 Output Total 1350 / 1350 1350 / 1350 250 / 250 Balance 190 / 340 -53 / 47 190 / 190 Lab / Micro Data Attestation: I reviewed the patient's lab results. 04/30/25 07:35 04/30/25 07:35 Labs: Laboratory Results - last 24 hr 04/30/25 07:35: Vitamin D 25-Hydroxy 27.6 L Micro: Microbiology 04/30/25 14:00 Wound Drainage - Aerobic & Anaerobic Swabs Gram Stain - Final 04/30/25 14:00 Wound Drainage - Aerobic & Anaerobic Swabs Wound Culture - Preliminary Staphylococcus species Staphylococcus species#2 Physical Exam Narrative Today 05/02 Yesterday 05/01 Afebrile. VSS. In no acute distress Right lower extremity: Inspection: Ecchymosis and edema improved. After packing removal there's no drainage, induration or ascending redness noted. Clott noted in opening. Doesnt'tolerate removal thus left in place. Palpation: No increased warmth. No pain with passive or active knee range of motion. No lateral or posterior knee tenderness to palpation. Motor: Flexes and extends leg easily Sensation: Sensation intact to light touch Vascular: Leg is warm, dry, well perfused. . Charges/Coding Visit Charges Office Visits / Consults: 12106 OV L2 New 15min 05/02/25 1250 <Electronically signed by Perez COLEMAN> Cosigner Signature (if applicable): CC: ~ Signed ADDENDUM by VIRGINIA Khan on 05/08/25 at 1359 Addendum Correction: Patient was seen in rehab. 05/08/25 1359<Electronically signed by Perez COLEMAN> Cosigner Signature (if applicable): cc: ~* Signed [facility] Work Phone: 1(945) 624-779209-18-2025 Progress note Author Triny Todd [facility] Note Date/Time May 08, 2025 1:58pm [facility] Medical Records Department [address] [address] Progress Note - Surgery 05/06/25 1311 MR#: [id number] Acct: [id number] Name: LESLI ROSALES Rep #:[id number] : 1940 85 From: Perez COLEMAN PCP: Dr. Marty Guthrie MD Status:ADM I N Location: [place] [address]-1 Subjective Subjective Patient seen this morning with Dr. Son and Dilma, wound RN at TCU bedside. She was sitting up in her chair in no acute distress. She notes improved pain with walking. Denies worsening pain with Objective Data Objective Data Vital Signs: Vital Signs Temp Pulse Resp BP Pulse Ox O2 Del Method O2 Flow Rate 98.8 F 60 15 109/64 95 Nasal Cannula 2 05/06/25 06:00 05/06/25 07:47 05/06/25 06:00 05/06/25 07:47 05/06/25 08:01 05/06/25 10:00 05/06/25 12:27 FiO2 21 05/01/25 21:55 Oxygen Flow Rate (L/min) 2 Oxygen Delivery Method Nasal Cannula Weight: 145 lb 8.081 oz Body Mass Index (BMI) 28.4 Intake & Output: Intake and Output for Last 24 Hours 05/04/25 05/05/25 05/06/25 23:59 23:59 23:59 Intake Total 1910 / 1910 1320 / 1320 780 / 780 Output Total 875 / 1025 1875 / 1875 950 / 950 Balance 1035 / 885 -555 / -555 -170 / -170 Lab / Micro Data Attestation: I reviewed the patient's lab results. 04/30/25 07:35 04/30/25 07:35 Micro: Microbiology 04/30/25 14:00 Wound Drainage - Aerobic & Anaerobic Swabs Gram Stain - Final 04/30/25 14:00 Wound Drainage - Aerobic & Anaerobic Swabs Wound Culture - Final Staphylococcus hominis hominis- very rare growth- likely skin contamination Staphylococcus caprae- very rare growth- likely skincontamination 04/30/25 14:00 Wound Drainage - Aerobic & Anaerobic Swabs Anaerobic Culture - Final No growth in 5 days. Physical Exam Narrative Today 05/06 From 05/02 Afebrile. VSS. In no acute distress Right lower extremity: Inspection: Ecchymosis and edema improved. After packing removal there's no drainage, induration or ascending redness noted. Clott noted, using sterile technique some were removed with sterile cotton probe and areas that were adherent to the wound bed were excised with sterile scissors. Palpation: Diffuse patellar tenderness. No increased warmth. No pain with passive or active knee range of motion. Motor: Flexes and extends leg easily Sensation: Sensation intact to light touch Vascular: Leg is warm, dry, well perfused. Charges/Coding Visit Charges Inpatient E&M: 44892 Subs Hosp L2 05/06/25 1638 <Electronically signed by Perez COLEMAN> Cosigner Signature (if applicable): CC: ~ Signed ADDENDUM by VIRGINIA Khan on 05/08/25 at 1358 Addendum Correction: Patient was seen on rehab. 05/08/25 1358<Electronically signed by Perez COLEMAN> Cosigner Signature (if applicable): cc: ~* Signed [facility] Work Phone: 1(537) 863-563809-18-2025 Progress note [facility] Medical Records Department [address] [place] [address] Progress Note 05/08/25 0858 MR#: [id number] Acct: [id number] Name: LESLI ORSALES Rep #:[id number] : 1940 85 From: Keerthi Son DO PCP: Dr. Marty Guthrie MD Status:ADM I N Location: [place] [address] Subjective Subjective Afebrile VSS - Maintaining appropriate oxygen saturation on RA Oral intake - FOOD good FLUIDS usually good Discussed with nursing - no problems that need addressed Reviewed the THERAPY notes Medication list reviewed. She had 3 doses of as needed oxycodone 5 mg yesterday. She has had 1 so far today. All recent lab was personally reviewed. White blood cell count is normal at 8.5. Differential is unremarkable. Hemoglobin is within normal limits at 12.7. Platelets are normal. Sodium is normal at 140 and the potassium is stable at 3.7. The BUN is 23 with a stable creatinine of 0.39. BNP is 1637 which is unremarkable in this patient. I reviewed the PA and lateral chest x-ray. There is consolidation in the right mid and lower lung and moderate right and small left pleural effusions. The right pulmonary nodule measures 1.2 cm whichis similar to prior. Lesli denies chest pain, palpitations, shortness of breath at rest, dysuria, nausea/vomiting/abdominal pain, lightheadedness. Today she is complaining of some pain in her left foot. Has not complained of left shoulder pain today. The arthritis compounded cream seems to be helping. Objective Data Objective Data Vital Signs: Vital Signs Temp Pulse Resp BP Pulse Ox O2 Del Method O2 Flow Rate 98.4 F 60 17 118/56 L 98 Nasal Cannula 2 05/08/25 06:00 05/08/25 08:38 05/08/25 08:38 05/08/25 06:00 05/08/25 08:38 05/08/25 08:38 05/08/25 08:38 FiO2 21 05/01/25 21:55 Oxygen Flow Rate (L/min) 2 Oxygen Delivery Method Nasal Cannula Weight: 146 lb 2.664 oz Body Mass Index (BMI) 28.5 Intake & Output: Intake and Output for Last 24 Hours 05/06/25 05/07/25 05/08/25 23:59 23:59 23:59 Intake Total 2019 860 / 860 460 / 460 Output Total 1949 / 1949 400 / 400 350 / 350 Balance 70 / 70 460 / 460 110 / 110 Lab / Micro Data 05/07/25 07:17 05/07/25 07:17 Micro: Microbiology 04/30/25 14:00 Wound Drainage - Aerobic & Anaerobic Swabs Gram Stain - Final 04/30/25 14:00 Wound Drainage - Aerobic & Anaerobic Swabs Wound Culture - Final Staphylococcus hominis hominis Staphylococcus caprae 04/30/25 14:00 Wound Drainage - Aerobic & Anaerobic Swabs Anaerobic Culture - Final No growth in 5 days. Physical Exam Const alert Resp Resp Narrative: Coarse crackles in both bases that do not resolve after few deep breaths. No wheezing. Fair air exchange. No cough with taking deep breaths. No orthopnea. Effort and Inspection: Negative for tachypneic Cardio no gallops Cardio Narrative: Irregularly irregular with controlled ventricular response GI normal to inspection, nondistended, normoactive bowel sounds, soft to palpation and non-tender Extremity no calf tenderness General Extremity: edema Assessment & Plan Assessment/Plan (1) Physical debility: (2) Fall: QUALIFIERS: Encounter type: subsequent encounter Qualified Code(s): W19.XXXD - Unspecified fall, subsequent encounter (3) Subdural hematoma: (4) Multiple rib fractures: QUALIFIERS: Encounter type: subsequent encounter Fracture type: closed Laterality: bilateral (5) Traumatic hematoma of right knee: (6) Cellulitis: QUALIFIERS: Site of cellulitis: extremity Site of cellulitis of extremity: lower extremity Laterality: right Qualified Code(s): L03.115 - Cellulitis of right lower limb (7) Vertebral compression fracture: QUALIFIERS: Encounter type: subsequent encounter Fracture of vertebra location: lumbar Lumbar vertebra fracture level: L1 (8) Osteoporosis: QUALIFIERS: Osteoporosis type: age-related Presence of current pathological fracture: with current pathological fracture Encounter type: subsequent encounter Fracture healing: with delayed healing Qualified Code(s): M80.00XG - Age-related osteoporosis with current pathological fracture, unspecifiedsite, subsequent encounter for fracture with delayed healing (9) Exercise hypoxemia: (10) Chronic anticoagulation: (11) Paroxysmal atrial fibrillation: (12) Psoriatic arthritis: (13) Vitamin D deficiency: (14) Mild cognitive impairment of uncertain or unknown etiology: (15) Pulmonary nodule 1 cm or greater in diameter: (16) Left shoulder pain: QUALIFIERS: Chronicity: acute Qualified Code(s): M25.512 - Pain in left shoulder PLAN: Plan 1. Continue therapy 2. Increase Lasix to 40 mg daily x 2 days and then resume 20 mg daily. 3. Potassium chloride 20 mill equivalents today and 20 mEq tomorrow then discontinue. 4. Recheck a BMP on Monday. 5. No changes to the current drug regimen. 6. Start Mucinex 1200 mg twice daily 7. Albuterol aerosols every 4 hours while awake for a few days to see if we canimprove aeration to the R mid and lower lung mccarty. Likely would not tolerate percussion. 8. Add a fluid restriction of 1300 cc daily. Charges/Coding Visit Charges Inpatient E&M: 52660 Subs Hosp L1 05/08/25 1511 Keerthi Hernández Signature (if applicable): CC: ~ Signed [facility]09-18-2025 Progress note [facility] Medical Records Department [address] [place] [address] Progress Note - Surgery 05/01/25 1302 MR#: [id number] Acct: [id number] Name: LESLI ROSALES Rep #:[id number] : 1940 85 From: Perez COLEMAN PCP: Dr. Marty Guthrie MD Status:ADM I N Location: [place] [address] Subjective Subjective Patient seen this morning with Dr. Plasencia at TCU bedside. She was sitting up in her chair in no acute distress. She notes no increase in pain at rest or with ambulation. Denies fever, chills, numbness, tingling, new pain. Objective Data Objective Data Vital Signs: Vital Signs Temp Pulse Resp BP Pulse Ox O2 Del Method O2 Flow Rate 97.6 F L 65 15 125/70 H 95 Nasal Cannula 1 05/01/25 05:18 05/01/25 05:18 05/01/25 05:18 05/01/25 05:18 05/01/25 11:10 05/01/25 11:10 05/01/25 11:10 Oxygen Flow Rate (L/min) 1 Oxygen Delivery Method Nasal Cannula Weight: 136 lb 0.015 oz Body Mass Index (BMI) 26.5 Intake & Output: Intake and Output for Last 24 Hours 04/29/25 04/30/25 05/01/25 23:59 23:59 23:59 Intake Total 1540 / 1690 1057 / 1057 Output Total 375 / 375 1350 / 1350 200 / 200 Balance -375 / -375 190 / 340 857 / 857 Lab / Micro Data Attestation: I reviewed the patient's lab results. 04/30/25 07:35 04/30/25 07:35 Labs: Laboratory Results - last 24 hr 04/30/25 07:35: Vitamin D 25-Hydroxy 27.6 L Micro: Microbiology 04/30/25 14:00 Wound Drainage - Aerobic & Anaerobic Swabs Gram Stain - Final Physical Exam Narrative Today 05/01 Afebrile. VSS. In no acute distress Right lower extremity: Inspection: Ecchymosis and edema improved. Packing mostly dry. After packing removal there's no drainage, induration or ascending redness noted. Palpation: No increased warmth. No pain with passive or active knee range of motion. No lateral or posterior knee tenderness to palpation. Motor: Flexes and extends leg easily Sensation: Sensation intact to light touch Vascular: Leg is warm, dry, well perfused. . Prior to I&D Charges/Coding Visit Charges Office Visits / Consults: 87838 OV L2 New 15min 05/01/25 1308 Cosigner Signature (if applicable): CC: ~ Signed ADDENDUM by VIRGINIA Khan on 05/01/25 at 1310 Addendum Assessment and Plan: Continue total 7 day course of Keflex Continue dry packing dressing twice daily. Monitor for ascending infection, concerns for septic arthritis. We will continue to follow 05/01/25 1310 Cosigner Signature (if applicable): cc: ~* Signed ADDENDUM by VIRGINIA Khan on 05/08/25 at 1359 Addendum Correction: Patient was seen in rehab. 05/08/25 1359 Cosigner Signature (if applicable): cc: ~* Signed [facility]09-18-2025 Progress note [facility] Medical Records Department [address] [place] [address] Progress Note - Surgery 05/02/25 1246 MR#: [id number] Acct: [id number] Name: CONNIELESLI Jose Alberto Rep #:[id number] : 1940 85 From: Perez COLEMAN PCP: Dr. Marty Guthrie MD Status:ADM I N Location: [place] [address] Subjective Subjective Patient seen this morning with Dr. Plasencia and wound RN at TCU bedside. She was sitting up in her chair in no acute distress. She notes no increase in pain at rest or with ambulation. Denies fever, chills, numbness, tingling, new pain. Objective Data Objective Data Vital Signs: Vital Signs Temp Pulse Resp BP Pulse Ox O2 Del Method O2 Flow Rate 98.3 F 77 16 133/76 H 88 Room Air 2 05/02/25 06:00 05/02/25 06:00 05/02/25 06:00 05/02/25 06:00 05/02/25 06:00 05/02/25 09:00 05/02/25 12:04 FiO2 21 05/01/25 21:55 Oxygen Flow Rate (L/min) 2 Oxygen Delivery Method Room Air Weight: 143 lb 4.807 oz Body Mass Index (BMI) 28.0 Intake & Output: Intake and Output for Last 24 Hours 04/30/25 05/01/25 05/02/25 23:59 23:59 23:59 Intake Total 1540 / 1690 1297 / 1397 440 / 440 Output Total 1350 / 1350 1350 / 1350 250 / 250 Balance 190 / 340 -53 / 47 190 / 190 Lab / Micro Data Attestation: I reviewed the patient's lab results. 04/30/25 07:35 04/30/25 07:35 Labs: Laboratory Results - last 24 hr 04/30/25 07:35: Vitamin D 25-Hydroxy 27.6 L Micro: Microbiology 04/30/25 14:00 Wound Drainage - Aerobic & Anaerobic Swabs Gram Stain - Final 04/30/25 14:00 Wound Drainage - Aerobic & Anaerobic Swabs Wound Culture - Preliminary Staphylococcus species Staphylococcus species#2 Physical Exam Narrative Today 05/02 Yesterday 05/01 Afebrile. VSS. In no acute distress Right lower extremity: Inspection: Ecchymosis and edema improved. After packing removal there's no drainage, induration orascending redness noted. Clott noted in opening. Doesnt'tolerate removal thus left in place. Palpation: No increased warmth. No pain with passive or active knee range of motion. No lateral or posterior knee tenderness to palpation. Motor: Flexes and extends leg easily Sensation: Sensation intact to light touch Vascular: Leg is warm, dry, well perfused. . Charges/Coding Visit Charges Office Visits / Consults: 98088 OV L2 New 15min 05/02/25 1250 Cosigner Signature (if applicable): CC: ~ Signed ADDENDUM by VIRGINIA Khan on 05/08/25 at 1359 Addendum Correction: Patient was seen in rehab. 05/08/25 1359 Cosigner Signature (if applicable): cc: ~* Signed [facility]09-18-2025 Progress note [facility] Medical Records Department [address] [place] [address] Progress Note - Surgery 05/06/25 1311 MR#: [id number] Acct: [id number] Name: LESLI ROSALES Rep #:[id number] : 1940 85 From: Perez COLEMAN PCP: Dr. Marty Guthrie MD Status:ADM I N Location: [place] [address] Subjective Subjective Patient seen this morning with Dr. Son and Dilma, wound RN at TCU bedside. She was sitting up in her chair in no acute distress. She notes improved pain with walking. Denies worsening pain with Objective Data Objective Data Vital Signs: Vital Signs Temp Pulse Resp BP Pulse Ox O2 Del Method O2 Flow Rate 98.8 F 60 15 109/64 95 Nasal Cannula 2 05/06/25 06:00 05/06/25 07:47 05/06/25 06:00 05/06/25 07:47 05/06/25 08:01 05/06/25 10:00 05/06/25 12:27 FiO2 21 05/01/25 21:55 Oxygen Flow Rate (L/min) 2 Oxygen Delivery Method Nasal Cannula Weight: 145 lb 8.081 oz Body Mass Index (BMI) 28.4 Intake & Output: Intake and Output for Last 24 Hours 05/04/25 05/05/25 05/06/25 23:59 23:59 23:59 Intake Total 1910 / 1910 1320 / 1320 780 / 780 Output Total 875 / 1025 1875 / 1875 950 / 950 Balance 1035 / 885 -555 / -555 -170 / -170 Lab / Micro Data Attestation: I reviewed the patient's lab results. 04/30/25 07:35 04/30/25 07:35 Micro: Microbiology 04/30/25 14:00 Wound Drainage - Aerobic & Anaerobic Swabs Gram Stain - Final 04/30/25 14:00 Wound Drainage - Aerobic & Anaerobic Swabs Wound Culture - Final Staphylococcus hominis hominis- very rare growth- likely skin contamination Staphylococcus caprae- very rare growth- likely skincontamination 04/30/25 14:00 Wound Drainage - Aerobic & Anaerobic Swabs Anaerobic Culture - Final No growth in 5 days. Physical Exam Narrative Today 05/06 From 05/02 Afebrile. VSS. In no acute distress Right lower extremity: Inspection: Ecchymosis and edema improved. After packing removal there's no drainage, induration orascending redness noted. Clott noted, using sterile technique some were removed with sterile cottonprobe and areas that were adherent to the wound bed were excised with sterile scissors. Palpation: Diffuse patellar tenderness. No increased warmth. No pain with passive or active knee range of motion. Motor: Flexes and extends leg easily Sensation: Sensation intact to light touch Vascular: Leg is warm, dry, well perfused. Charges/Coding Visit Charges Inpatient E&M: 44192 Subs Hosp L2 05/06/25 1638 Cosigner Signature (if applicable): CC: ~ Signed ADDENDUM by VIGRINIA Khan on 05/08/25 at 1358 Addendum Correction: Patient was seen on rehab. 05/08/25 1358 Cosigner Signature (if applicable): cc: ~* Signed [facility]09-16-2025 Telephone encounter Note* Telephone Encounter - Amanda Lugo PharmD - 05/06/2025 2:36 PM EDT FYI after some back and forth with insurance, PA for [employer] has finally been approved. Rx is already on file. [facility] will reach out shortly to schedule delivery for patient. [facility]! [phone] Miscellaneous Notes* Telephone Encounter - Amanda Lugo PharmD - 05/06/2025 2:36 PM EDT FYI after some back and forth with insurance, PA for [employer]ayn[employer] has finally been approved. Rx is already on file. [facility] will reach out shortly to schedule delivery for patient. Thanks! documented in this [facility]09-16-2025 Progress note Author Keerthi Son [facility] Note Date/Time May 06, 2025 12:09pm [facility] Medical Records Department [address] [place] [address] Progress Note 05/06/25919 MR#: [id number] Acct: [id number] Name: LESLI ROSALES Rep #:[id number] : 1940 85 From: Keerthi Son DO PCP: Dr. Marty Guthrie MD Status:ADM I N Location: [place] [address] Subjective Subjective Day #4 doxycycline....prior to that had 3 days of Keflex. Afebrile Vital signs stable Good appetite, sleeping well at night Maintaining an oxygen saturation of 94 to 95% while sleeping at night on 2 L of nasal O2. Fluid balance yesterday was -555. Had 4 doses of oxycodone 5 mg yesterday. He is also on a Butrans patch, 10 mcg. Having regular BM's Denies cough, lightheadedness, cough, nausea/vomiting/abdominal pain and calf tenderness. She complains of pain in the left shoulder.....exacerbated by movement.......trying not to move the shoulder. Has been faithfully doing IS. No night sweats, chills or fevers. Still c/o vaginal itching. Monistat vaginalcream was added to the drug regimen over the weekend. Objective Data Objective Data Vital Signs: Vital Signs Temp Pulse Resp BP Pulse Ox O2 Del Method O2 Flow Rate 98.8 F 60 15 109/64 95 Nasal Cannula 2 05/06/25 06:00 05/06/25 07:47 05/06/25 06:00 05/06/25 07:47 05/06/25 08:01 05/06/25 08:01 05/06/25 08:01 FiO2 21 05/01/25 21:55 Oxygen Flow Rate (L/min) 2 Oxygen Delivery Method Nasal Cannula Weight: 143 lb 4.807 oz Body Mass Index (BMI) 28.0 Intake & Output: Intake and Output for Last 24 Hours 05/04/25 05/05/25 05/06/25 23:59 23:59 23:59 Intake Total 1910 / 1910 1320 / 1320 540 / 540 Output Total 875 / 1025 1875 / 1875 300 / 300 Balance 1035 / 885 -555 / -555 240 / 240 Lab / Micro Data 04/30/25 07:35 04/30/25 07:35 Micro: Microbiology 04/30/25 14:00 Wound Drainage - Aerobic & Anaerobic Swabs Gram Stain - Final 04/30/25 14:00 Wound Drainage - Aerobic & Anaerobic Swabs Wound Culture - Final Staphylococcus hominis hominis Staphylococcus caprae 04/30/25 14:00 Wound Drainage - Aerobic & Anaerobic Swabs Anaerobic Culture - Final No growth in 5 days. Physical Exam Const alert Constitutional Narrative: does not appear to be in any distress until We examine the L shoulder and then complains with any movement or light touch.......but, she was able to make baconand eggs this AM without any complaints. when she is distracted she tolerates touch much better. Resp Resp Narrative: Coarse crackles in both bases that do not resolve after few deep breaths. No wheezing. Fair air exchange. No cough with taking deep breaths. No orthopnea. Effort and Inspection: Negative for tachypneic Cardio no gallops Cardio Narrative: Irregularly irregular with controlled ventricular response GI normal to inspection, nondistended, normoactive bowel sounds, soft to palpation and non-tender Extremity no calf tenderness Extremity Narrative: She has edema of the dorsum of the feet and the ankles.......better with the compressions wraps. Has a lot of varicosities of the LE's. bruising is slowly resolving. The left shoulder is not swollen and there is no bruising and no erythema. No significant increase in warmth to touch. No openings in the skin. When I had her flex her biceps she had pain over the biceps tendon where it attaches at the shoulder. She also has some pain with palpation of the posterior shoulder joint. She is holding the shoulder anteriorly. Will not letmove fully examine the shoulder.......she guards with any attemtpt to move the joint. Skin Skin Narrative: I examined the wound with the wound care team. The swelling continues to improve. There is some some old clot in the base of the wound. No purulent DC. No erythema around the wound. No odor. Surgery removed some more clot from the base with a swab and forceps. The wound was repacked and dressed. She tolerated the procedure well..... much better than last week. Assessment & Plan Assessment/Plan (1) Physical debility: (2) Fall: QUALIFIERS: Encounter type: subsequent encounter Qualified Code(s): W19.XXXD - Unspecified fall, subsequent encounter (3) Subdural hematoma: (4) Multiple rib fractures: QUALIFIERS: Encounter type: subsequent encounter Fracture type: closed Laterality: bilateral (5) Traumatic hematoma of right knee: (6) Cellulitis: QUALIFIERS: Site of cellulitis: extremity Site of cellulitis of extremity: lower extremity Laterality: right Qualified Code(s): L03.115 - Cellulitis of right lower limb (7) Vertebral compression fracture: QUALIFIERS: Encounter type: subsequent encounter Fracture of vertebra location: lumbar Lumbar vertebra fracture level: L1 (8) Osteoporosis: QUALIFIERS: Osteoporosis type: age-related Presence of current pathological fracture: with current pathological fracture Encounter type: subsequent encounter Fracture healing: with delayed healing Qualified Code(s): M80.00XG - Age-related osteoporosis with current pathological fracture, unspecified site, subsequent encounter for fracture with delayed healing (9) Exercise hypoxemia: (10) Chronic anticoagulation: (11) Paroxysmal atrial fibrillation: (12) Psoriatic arthritis: (13) Vitamin D deficiency: (14) Mild cognitive impairment of uncertain or unknown etiology: (15) Pulmonary nodule 1 cm or greater in diameter: (16) Left shoulder pain: QUALIFIERS: Chronicity: acute Qualified Code(s): M25.512 - Pain in left shoulder PLAN: Plan 1. Continue therapy 2. Recheck lab in the a.m. 3. Continue incentive spirometer for 10 breaths every hour while awake 4. Continue Morales wraps to the bilateral lower extremities and elevation of the legs. 5. Check orthostatics in the a.m. 6. Try arthritis compounded cream to the left shoulder and if this is not effective consider a steroid injection into the left shoulder joint. Charges/Coding Visit Charges Inpatient E&M: 77870 Subs Hosp L1 05/06/25 1209 <Electronically signed by Keerthi Son DO> Keerthi Son DO Cosigner Signature (if applicable): CC: ~ Signed [facility] Work Phone: [phone] Radiology Diagnostic study note [facility] Imaging Services [address] [place] [address] [id number] Chest PA and Lateral MR#: [id number] Acct: [id number] Name: LESLI ROSALES Rep #: [id number] : 1940 F 85 From: Luis Reyes MD PCP: Dr. Marty Guthrie MD Status: ADM I N Study:Chest PA and Lateral Date of Exam: 05/06/25 Exam# [id number] Ordering Dr: Keerthi Son DO PROCEDURE: CHEST PA AND LATERAL 05/06/2025 REASON FOR EXAM: RALES TECHNIQUE: Procedure Code: RADCXR Modality: DX Procedure: CHEST PA AND LATERAL COMPARISON: December 24, 2024 FINDINGS: There is cardiomegaly with mild central vascular congestion. There is consolidation in the right mid and lower lung, new compared to the prior. There is a moderate right and small left pleural effusion. A dominant right pulmonary nodule in the mid lung measuring proximally 1.2 cm is similar to the prior. Hardware is partly visible in the right shoulder. Vertebroplasty changes partly visible in the lumbar region. RAD/Chest PA and Lateral IMPRESSION: There is cardiomegaly with mild central vascular congestion. There is consolidation in the right mid and lower lung, new compared to the prior. There is a moderate right and small left pleural effusion. A dominant right pulmonary nodule in the mid lung measuring proximally 1.2 cm issimilar to the prior. Reading Location: [facility] CC: Dr. Keerthi Son DO; Dr. Marty Guthrie MD ~ Coat Baster: Signed [facility]09-16-2025 Progress note [facility] Medical Records Department [address] [place] [address] Progress Note 05/06/25 0920 MR#: [id number] Acct: [id number] Name: LESLI ROSALES Rep #:[id number] : 1940 85 From: Keerthi Son DO PCP: Dr. Marty Guthrie MD Status:ADM I N Location: [place] [address] Subjective Subjective Day #4 doxycycline....prior to that had 3 days of Keflex. Afebrile Vital signs stable Good appetite, sleeping well at night Maintaining an oxygen saturation of 94 to 95% while sleeping at night on 2 L of nasal O2. Fluid balance yesterday was -555. Had 4 doses of oxycodone 5 mg yesterday. He is also on a Butrans patch, 10 mcg. Having regular BM's Denies cough, lightheadedness, cough, nausea/vomiting/abdominal pain and calf tenderness. She complains of pain in the left shoulder.....exacerbated by movement.......trying not to move the shoulder.Has been faithfully doing IS. No night sweats, chills or fevers. Still c/o vaginal itching. Monistat vaginalcream was added to the drug regimen over the weekend. Objective Data Objective Data Vital Signs: Vital Signs Temp Pulse Resp BP Pulse Ox O2 Del Method O2 Flow Rate 98.8 F 60 15 109/64 95 Nasal Cannula 2 05/06/25 06:00 05/06/25 07:47 05/06/25 06:00 05/06/25 07:47 05/06/25 08:01 05/06/25 08:01 05/06/25 08:01 FiO2 21 05/01/25 21:55 Oxygen Flow Rate (L/min) 2 Oxygen Delivery Method Nasal Cannula Weight: 143 lb 4.807 oz Body Mass Index (BMI) 28.0 Intake & Output: Intake and Output for Last 24 Hours 05/04/25 05/05/25 05/06/25 23:59 23:59 23:59 Intake Total 1910 / 1910 1320 / 1320 540 / 540 Output Total 875 / 1025 1875 / 1875 300 / 300 Balance 1035 / 885 -555 / -555 240 / 240 Lab / Micro Data 04/30/25 07:35 04/30/25 07:35 Micro: Microbiology 04/30/25 14:00 Wound Drainage - Aerobic & Anaerobic Swabs Gram Stain - Final 04/30/25 14:00 Wound Drainage - Aerobic & Anaerobic Swabs Wound Culture - Final Staphylococcus hominis hominis Staphylococcus caprae 04/30/25 14:00 Wound Drainage - Aerobic & Anaerobic Swabs Anaerobic Culture - Final No growth in 5 days. Physical Exam Const alert Constitutional Narrative: does not appear to be in any distress until We examine the L shoulder and then complains with any movement or light touch.......but, she was able to make baconand eggs this AM without any complaints.when she is distracted she tolerates touch much better. Resp Resp Narrative: Coarse crackles in both bases that do not resolve after few deep breaths. No wheezing. Fair air exchange. No cough with taking deep breaths. No orthopnea. Effort and Inspection: Negative for tachypneic Cardio no gallops Cardio Narrative: Irregularly irregular with controlled ventricular response GI normal to inspection, nondistended, normoactive bowel sounds, soft to palpation and non-tender Extremity no calf tenderness Extremity Narrative: She has edema of the dorsum of the feet and the ankles.......better with the compressions wraps. Has a lot of varicosities of the LE's. bruising is slowly resolving. The left shoulder is not swollen and there is no bruising and no erythema. No significant increase in warmth to touch. No openings inthe skin. When I had her flex her biceps she had pain over the biceps tendon where it attaches at the shoulder. She also has some pain with palpation of the posterior shoulder joint. She is holding the shoulder anteriorly. Will not letmove fully examine the shoulder.......she guards with any attemtpt to move the joint. Skin Skin Narrative: I examined the wound with the wound care team. The swelling continues to improve. There is some some old clot in the base of the wound. No purulent DC. No erythema around the wound. No odor. Surgery removed some more clot from the base with a swab and forceps. The wound was repacked and dressed. She tolerated the procedure well..... much better than last week. Assessment & Plan Assessment/Plan (1) Physical debility: (2) Fall: QUALIFIERS: Encounter type: subsequent encounter Qualified Code(s): W19.XXXD - Unspecified fall, subsequent encounter (3) Subdural hematoma: (4) Multiple rib fractures: QUALIFIERS: Encounter type: subsequent encounter Fracture type: closed Laterality: bilateral (5) Traumatic hematoma of right knee: (6) Cellulitis: QUALIFIERS: Site of cellulitis: extremity Site of cellulitis of extremity: lower extremity Laterality: right Qualified Code(s): L03.115 - Cellulitis of right lower limb (7) Vertebral compression fracture: QUALIFIERS: Encounter type: subsequent encounter Fracture of vertebra location: lumbar Lumbar vertebra fracture level: L1 (8) Osteoporosis: QUALIFIERS: Osteoporosis type: age-related Presence of current pathological fracture: with current pathological fracture Encounter type: subsequent encounter Fracture healing: with delayed healing Qualified Code(s): M80.00XG - Age-related osteoporosis with current pathological fracture, unspecifiedsite, subsequent encounter for fracture with delayed healing (9) Exercise hypoxemia: (10) Chronic anticoagulation: (11) Paroxysmal atrial fibrillation: (12) Psoriatic arthritis: (13) Vitamin D deficiency: (14) Mild cognitive impairment of uncertain or unknown etiology: (15) Pulmonary nodule 1 cm or greater in diameter: (16) Left shoulder pain: QUALIFIERS: Chronicity: acute Qualified Code(s): M25.512 - Pain in left shoulder PLAN: Plan 1. Continue therapy 2. Recheck lab in the a.m. 3. Continue incentive spirometer for 10 breaths every hour while awake 4. Continue Morales wraps to the bilateral lower extremities and elevation of the legs. 5. Check orthostatics in the a.m. 6. Try arthritis compounded cream to the left shoulder and if this is not effective consider a steroid injection into the left shoulder joint. Charges/Coding Visit Charges Inpatient E&M: 75791 Subs Hosp L1 05/06/25 1209 Keerthi Son DO Cosigner Signature (if applicable): CC: ~ Signed [facility]09-15-2025 Progress note Author Keerthi Cagleherminia [facility] Note Date/Time May 05, 2025 2:18pm [facility] Medical Records Department [address] [place] [address] Progress Note 05/05/25 0841 MR#: [id number] Acct: [id number] Name: LESLI ROSALES Rep #:[id number] : 1940 85 From: Keerthi Son DO PCP: Dr. Marty Guthrie MD Status:ADM I N Location: [place] [address] Subjective Subjective Lesli was seen on TEAM rounds today. Her son Nathaniel was present in the room. All questions were answered to their satisfaction. Doxycycline Afebrile VSS - Maintaining appropriate oxygen saturation on RA Oral intake - FOOD good FLUIDS fair weight today is up. Discussed with nursing - no problems that need addressed Reviewed the THERAPY notes Medication list reviewed. she took 5 doses of PRN Oxycodone yesterday. She took 3 doses on Monday. Started on Monistat vaginal cream for itching/DC......likely related to the antibiotics for cellulitis. Has not requested a Duoneb since admission to rehab. I reviewed the results of the microbiology. She grew a Staph hominis and staph Caprae. The Staph hominis is oxacillin resistant and is also resistant to clindamycin, Rithron myosin, tetracycline. It is sensitive to doxycycline. Very rare growth of both and there were no WBC's in the GM stain. Objective Data Objective Data Vital Signs: Vital Signs Temp Pulse Resp BP Pulse Ox O2 Del Method O2 Flow Rate 98.4 F 69 16 128/72 H 98 Nasal Cannula 2 05/05/25 06:00 05/05/25 06:00 05/05/25 06:00 05/05/25 06:00 05/05/25 06:00 05/05/25 06:00 05/05/25 06:00 FiO2 21 05/01/25 21:55 Oxygen Flow Rate (L/min) 2 Oxygen Delivery Method Nasal Cannula Weight: 143 lb 4.807 oz Body Mass Index (BMI) 28.0 Intake & Output: Intake and Output for Last 24 Hours 05/03/25 05/04/25 05/05/25 23:59 23:59 23:59 Intake Total 820 / 1070 1910 / 1910 840 / 840 Output Total 1000 / 1200 875 / 1025 375 / 375 Balance -180 / -130 1035 / 885 465 / 465 Lab / Micro Data 04/30/25 07:35 04/30/25 07:35 Micro: Microbiology 04/30/25 14:00 Wound Drainage - Aerobic & Anaerobic Swabs Gram Stain - Final 04/30/25 14:00 Wound Drainage - Aerobic & Anaerobic Swabs Wound Culture - Final Staphylococcus hominis hominis Staphylococcus caprae 04/30/25 14:00 Wound Drainage - Aerobic & Anaerobic Swabs Anaerobic Culture - Preliminary No growth in 48 hours. Physical Exam Const alert Constitutional Narrative: Does not appear to as painful today. Moving a little better. Resp Resp Narrative: Not tachypneic, not coughing. She was able to take some deep breaths without moaning in pain. some coarse crackles in the Left base today. No wheezing. She has been using the I-S consistently. She has no conversational dyspnea and she is not tachypneic. She denies SOB at rest. Cardio no murmurs and no gallops Cardio Narrative: She is in atrial fibrillation with a controlled ventricular response. GI normal to inspection, nondistended, normoactive bowel sounds and soft to palpation Extremity Extremity Narrative: Edema is worse in the right leg but, she has edema of the feet BL and the ankles. she sits with her legs dependent.......even when she thinks she is elevating her legs they are only about 6 " off the ground. General Extremity: edema Assessment & Plan Assessment/Plan (1) Physical debility: (2) Fall: QUALIFIERS: Encounter type: subsequent encounter Qualified Code(s): W19.XXXD - Unspecified fall, subsequent encounter (3) Subdural hematoma: (4) Multiple rib fractures: QUALIFIERS: Encounter type: subsequent encounter Fracture type: closed Laterality: bilateral (5) Traumatic hematoma of right knee: (6) Cellulitis: QUALIFIERS: Site of cellulitis: extremity Site of cellulitis of extremity: lower extremity Laterality: right Qualified Code(s): L03.115 - Cellulitis of right lower limb (7) Vertebral compression fracture: QUALIFIERS: Encounter type: subsequent encounter Fracture of vertebra location: lumbar Lumbar vertebra fracture level: L1 (8) Osteoporosis: QUALIFIERS: Osteoporosis type: age-related Presence of current pathological fracture: with current pathological fracture Encounter type: subsequent encounter Fracture healing: with delayed healing Qualified Code(s): M80.00XG - Age-related osteoporosis with current pathological fracture, unspecified site, subsequent encounter for fracture with delayed healing (9) Exercise hypoxemia: (10) Compression fracture of L3 vertebra: QUALIFIERS: Encounter type: sequela Qualified Code(s): S32.030S -Wedge compression fracture of third lumbar vertebra, sequela (11) Chronic pain: QUALIFIERS: Chronic pain type: chronic pain syndrome Qualified Code(s): G89.4 - Chronic pain syndrome (12) Chronic anticoagulation: (13) Paroxysmal atrial fibrillation: (14) Dehydration: (15) Psoriatic arthritis: (16) Vitamin D deficiency: (17) Mild cognitive impairment of uncertain or unknown etiology: (18) Pulmonary nodule 1 cm or greater in diameter: PLAN: Plan 1. Continue therapy 2. Finish 5 days of Doxycycline. 3. Continue the current pain regimen. 4. Recheck lab on Monday 5. Lasix 40 mg PO today. Reweigh in the AM. Order Lasix 20 mg daily until sheis back to baseline weight. 6. told she needed to elevate the legs the whole way up in the recliner to helpcontrol the edema. Charges/Coding Visit Charges Inpatient E&M: 78390 Subs Hosp L2 05/05/25 0077 <Electronically signed by Keerthi Son DO> Keerthi C. Sementi DO Cosigner Signature (if applicable): CC: ~ Signed [facility] Work Phone: [phone] Progress note [facility] Medical Records Department [address] [place] [address] Progress Note 05/05/25 08 MR#: [id number] Acct: [id number] Name: LESLI ROSALES Rep #:[id number] : 1940 85 From: Keerthi Son DO PCP: Dr. Marty Guthrie MD Status:ADM I N Location: [place] [address] Subjective Subjective Lesli was seen on TEAM rounds today. Her son Nathaniel was present in the room. All questions were answered to their satisfaction. Doxycycline Afebrile VSS - Maintaining appropriate oxygen saturation on RA Oral intake - FOOD good FLUIDS fair weight today is up. Discussed with nursing - no problems that need addressed Reviewed the THERAPY notes Medication list reviewed. she took 5 doses of PRN Oxycodone yesterday. She took 3 doses on Monday. Started on Monistat vaginal cream for itching/DC......likely related to the antibiotics for cellulitis. Has not requested a Duoneb since admission to rehab. I reviewed the results of the microbiology. She grew a Staph hominis and staph Caprae. The Staph hominis is oxacillin resistant and is also resistant to clindamycin, Rithron myosin, tetracycline. It is sensitive to doxycycline. Very rare growth of both and there were no WBC's in the GM stain. Objective Data Objective Data Vital Signs: Vital Signs Temp Pulse Resp BP Pulse Ox O2 Del Method O2 Flow Rate 98.4 F 69 16 128/72 H 98 Nasal Cannula 2 05/05/25 06:00 05/05/25 06:00 05/05/25 06:00 05/05/25 06:00 05/05/25 06:00 05/05/25 06:00 05/05/25 06:00 FiO2 21 05/01/25 21:55 Oxygen Flow Rate (L/min) 2 Oxygen Delivery Method Nasal Cannula Weight: 143 lb 4.807 oz Body Mass Index (BMI) 28.0 Intake & Output: Intake and Output for Last 24 Hours 0905/04/25 05/05/25 23:59 23:59 23:59 Intake Total 820 / 1070 1910 / 1910 840 / 840 Output Total 1000 / 1200 875 / 1025 375 / 375 Balance -180 / -130 1035 / 885 465 / 465 Lab / Micro Data 04/30/25 07:35 04/30/25 07:35 Micro: Microbiology 04/30/25 14:00 Wound Drainage - Aerobic & Anaerobic Swabs Gram Stain - Final 04/30/25 14:00 Wound Drainage - Aerobic & Anaerobic Swabs Wound Culture - Final Staphylococcus hominis hominis Staphylococcus caprae 04/30/25 14:00 Wound Drainage - Aerobic & Anaerobic Swabs Anaerobic Culture - Preliminary No growth in 48 hours. Physical Exam Const alert Constitutional Narrative: Does not appear to as painful today. Moving a little better. Resp Resp Narrative: Not tachypneic, not coughing. She was able to take some deep breaths without moaning in pain. some coarse crackles in the Left base today. No wheezing. She has been using the I-S consistently. She has no conversational dyspnea and she is not tachypneic. She denies SOB at rest. Cardio no murmurs and no gallops Cardio Narrative: She is in atrial fibrillation with a controlled ventricular response. GI normal to inspection, nondistended, normoactive bowel sounds and soft to palpation Extremity Extremity Narrative: Edema is worse in the right leg but, she has edema of the feet BL and the ankles. she sits with herlegs dependent.......even when she thinks she is elevating her legs they are only about 6 " off theground. General Extremity: edema Assessment & Plan Assessment/Plan (1) Physical debility: (2) Fall: QUALIFIERS: Encounter type: subsequent encounter Qualified Code(s): W19.XXXD - Unspecified fall, subsequent encounter (3) Subdural hematoma: (4) Multiple rib fractures: QUALIFIERS: Encounter type: subsequent encounter Fracture type: closed Laterality: bilateral (5) Traumatic hematoma of right knee: (6) Cellulitis: QUALIFIERS: Site of cellulitis: extremity Site of cellulitis of extremity: lower extremity Laterality: right Qualified Code(s): L03.115 - Cellulitis of right lower limb (7) Vertebral compression fracture: QUALIFIERS: Encounter type: subsequent encounter Fracture of vertebra location: lumbar Lumbar vertebra fracture level: L1 (8) Osteoporosis: QUALIFIERS: Osteoporosis type: age-related Presence of current pathological fracture: with current pathological fracture Encounter type: subsequent encounter Fracture healing: with delayed healing Qualified Code(s): M80.00XG - Age-related osteoporosis with current pathological fracture, unspecifiedsite, subsequent encounter for fracture with delayed healing (9) Exercise hypoxemia: (10) Compression fracture of L3 vertebra: QUALIFIERS: Encounter type: sequela Qualified Code(s): S32.030S -Wedge compression fracture of third lumbar vertebra, sequela (11) Chronic pain: QUALIFIERS: Chronic pain type: chronic pain syndrome Qualified Code(s): G89.4 - Chronic pain syndrome (12) Chronic anticoagulation: (13) Paroxysmal atrial fibrillation: (14) Dehydration: (15) Psoriatic arthritis: (16) Vitamin D deficiency: (17) Mild cognitive impairment of uncertain or unknown etiology: (18) Pulmonary nodule 1 cm or greater in diameter: PLAN: Plan 1. Continue therapy 2. Finish 5 days of Doxycycline. 3. Continue the current pain regimen. 4. Recheck lab on Monday 5. Lasix 40 mg PO today. Reweigh in the AM. Order Lasix 20 mg daily until sheis back to baseline weight. 6. told she needed to elevate the legs the whole way up in the recliner to helpcontrol the edema. Charges/Coding Visit Charges Inpatient E&M: 42517 Subs Hosp L2 05/05/25 1418 Keerthi Son DO Cosigner Signature (if applicable): CC: ~ Signed [facility]09-12-2025 Progress note Author Keerthi Son [facility] Note Date/Time May 02, 2025 6:04pm [facility] Medical Records Department [address] [place] [address] Progress Note 05/02/25 0945 MR#: [id number] Acct: [id number] Name: CONNIELESLI J Rep #:[id number] : 1940 85 From: Keerthi Son DO PCP: Dr. Marty Guthrie MD Status:ADM I N Location: [place] [address] Subjective Subjective Afebrile VSS - Maintaining appropriate oxygen saturation on RA Oral intake - FOOD mostly good FLUIDS fair Weight today is unreliable. She did not gain 7 pounds in the past 2 days. It was a bed weight. Discussed with nursing - no problems that need addressed Reviewed the THERAPY notes Medication list reviewed. She had 3 doses of as needed oxycodone for breakthrough pain yesterday. I reviewed the overnight trending pulse ox. Pulse ox on room air was 90 or greater only 37.89% of the time she was monitored. 62.08% of the time the pulseox ranged from 80-89. There were multiple desaturation events lasting greater than 60 seconds. Lesli tells me that she is doing better today. She slept well last night. She denies heartburn/nausea/epigastric pain. She had a large BM this morning and denies feeling constipated. She has been doing the IS.....10 breaths an hour while awake. Denies CP, orthopnea. She does admit to SOB with exertion. The wound GM stain had no WBC's and no organisms. Final wound culture is still pending. The wound was examined by Plastics today and reportedly is looking much better. I looked at the picture taken yesterday and there is much less swelling and less erythema. No odor to the DC. Still with some clotted blood. Please see the plastics note for Objective Data Objective Data Vital Signs: Vital Signs Temp Pulse Resp BP Pulse Ox O2 Del Method O2 Flow Rate 98.3 F 77 16 133/76 H 88 Room Air 1 05/02/25 06:00 05/02/25 06:00 05/02/25 06:00 05/02/25 06:00 05/02/25 06:00 05/02/25 09:00 05/01/25 17:59 FiO2 21 05/01/25 21:55 Oxygen Flow Rate (L/min) 1 Oxygen Delivery Method Room Air Weight: 143 lb 4.807 oz Body Mass Index (BMI) 28.0 Intake & Output: Intake and Output for Last 24 Hours 04/30/25 05/01/25 05/02/25 23:59 23:59 23:59 Intake Total 1540 / 1690 1297 / 1397 440 / 440 Output Total 1350 / 1350 1350 / 1350 Balance 190 / 340 -53 / 47 440 / 440 Lab / Micro Data 04/30/25 07:35 04/30/25 07:35 Micro: Microbiology 04/30/25 14:00 Wound Drainage - Aerobic & Anaerobic Swabs Gram Stain - Final Physical Exam Const Constitutional Narrative: She does not appear as painful today. She is not restless. She is very alert and appropriate. She states she feels better today than yesterday. General Appearance: cooperative Eyes Eyes Narrative: No discharge from the eyes and no conjunctival hemorrhage or injection of the conjunctiva. Resp Resp Narrative: Not tachypneic, not coughing. She was able to take some deep breaths without moaning in pain. The lungs are clear to auscultation today. She has been usingthe I-S consistently. She has no conversational dyspnea and she is not tachypneic. Cardio no murmurs and no gallops Cardio Narrative: She is in atrial fibrillation with a controlled ventricular response. GI normal to inspection, nondistended, normoactive bowel sounds and soft to palpation GI Narrative: She had a large bowel movement this morning and denies feeling constipated any longer. She denies any crampy abdominal pain. Extremity Extremity Narrative: Please see plastic surgery note for description of the R knee today. Assessment & Plan Assessment/Plan (1) Physical debility: (2) Fall: QUALIFIERS: Encounter type: subsequent encounter Qualified Code(s): W19.XXXD - Unspecified fall, subsequent encounter (3) Subdural hematoma: (4) Multiple rib fractures: QUALIFIERS: Encounter type: subsequent encounter Fracture type: closed Laterality: bilateral (5) Traumatic hematoma of right knee: (6) Cellulitis: QUALIFIERS: Site of cellulitis: extremity Site of cellulitis of extremity: lower extremity Laterality: right Qualified Code(s): L03.115 - Cellulitis of right lower limb (7) Vertebral compression fracture: QUALIFIERS: Encounter type: subsequent encounter Fracture of vertebra location: lumbar Lumbar vertebra fracture level: L1 PLAN: T8 and L1 are new. Has had a kyphoplasty of L2 in the past and fractured L3 early in 2024. (8) Osteoporosis: QUALIFIERS: Osteoporosis type: age-related Presence of current pathological fracture: with current pathological fracture Encounter type: subsequent encounter Fracture healing: with delayed healing Qualified Code(s): M80.00XG - Age-related osteoporosis with current pathological fracture, unspecified site, subsequent encounter for fracture with delayed healing PLAN: Severe. Not currently on tx. Vitamin D level is low but, pt tells me that she is taking 50 mcg of Vitamin D daily. (9) Exercise hypoxemia: (10) Compression fracture of L3 vertebra: QUALIFIERS: Encounter type: sequela Qualified Code(s): S32.030S -Wedge compression fracture of third lumbar vertebra, sequela PLAN: Old. Seeing Dr. Malagon for this. (11) Chronic pain: QUALIFIERS: Chronic pain type: chronic pain syndrome Qualified Code(s): G89.4 - Chronic pain syndrome PLAN: She has chronic pain syndrome which is managed by Dr. Hall from pain management. She now has acute exacerbation secondary to a fall with multiple rib fractures and a subdural hematoma. (12) Chronic anticoagulation: PLAN: On hold for SDH. (13) Paroxysmal atrial fibrillation: (14) Dehydration: (15) Psoriatic arthritis: (16) Vitamin D deficiency: (17) Mild cognitive impairment of uncertain or unknown etiology: PLAN: Scored 40 out of a possible 50 on the BCAT. (18) Pulmonary nodule 1 cm or greater in diameter: PLAN: Plan 1. Continue therapy 2. No changes to the drug regimen today 3. Continue wet-to-dry dressing twice daily 4. She is tolerating Fosamax with no exacerbation of GERD/heartburn. Will transition to 70 mg of Fosamax once a week on Monday. Charges/Coding Visit Charges Inpatient E&M: 82874 Subs Hosp L1 05/02/25 180 <Electronically signed by Keerthi Son DO> Keerthi Son DO Cosigner Signature (if applicable): CC: ~ Signed [facility] Work Phone: 1(431) 803-549409-12-2025 Progress note [facility] Medical Records Department [address] [place] [address] Progress Note 05/02/25 0945 MR#: [id number] Acct: [id number] Name: LESLI ROSALES Rep #:[id number] : 1940 85 From: Keerthi Son DO PCP: Dr. Marty Guthrie MD Status:ADM I N Location: [place] [address] Subjective Subjective Afebrile VSS - Maintaining appropriate oxygen saturation on RA Oral intake - FOOD mostly good FLUIDS fair Weight today is unreliable. She did not gain 7 pounds in the past 2 days. It was a bed weight. Discussed with nursing - no problems that need addressed Reviewed the THERAPY notes Medication list reviewed. She had 3 doses of as needed oxycodone for breakthrough pain yesterday. I reviewed the overnight trending pulse ox. Pulse ox on room air was 90 or greater only 37.89% of the time she was monitored. 62.08% of the time the pulseox ranged from 80-89. There were multiple desaturation events lasting greater than 60 seconds. Lesli tells me that she is doing better today. She slept well last night. She denies heartburn/nausea/epigastric pain. She had a large BM this morning and denies feeling constipated. She has been doing the IS.....10 breaths an hour while awake. Denies CP, orthopnea. She does admit to SOB with exertion. The wound GM stain had no WBC's and no organisms. Final wound culture is still pending. The wound was examined by Plastics today and reportedly is looking much better. I looked at the picture taken yesterday and there is much less swelling and less erythema. No odor to the DC. Still with some clotted blood. Please see the plastics note for Objective Data Objective Data Vital Signs: Vital Signs Temp Pulse Resp BP Pulse Ox O2 Del Method O2 Flow Rate 98.3 F 77 16 133/76 H 88 Room Air 1 05/02/25 06:00 05/02/25 06:00 05/02/25 06:00 05/02/25 06:00 05/02/25 06:00 05/02/25 09:00 05/01/25 17:59 FiO2 21 05/01/25 21:55 Oxygen Flow Rate (L/min) 1 Oxygen Delivery Method Room Air Weight: 143 lb 4.807 oz Body Mass Index (BMI) 28.0 Intake & Output: Intake and Output for Last 24 Hours 04/30/25 05/01/25 05/02/25 23:59 23:59 23:59 Intake Total 1540 / 1690 1297 / 1397 440 / 440 Output Total 1350 / 1350 1350 / 1350 Balance 190 / 340 -53 / 47 440 / 440 Lab / Micro Data 04/30/25 07:35 04/30/25 07:35 Micro: Microbiology 04/30/25 14:00 Wound Drainage - Aerobic & Anaerobic Swabs Gram Stain - Final Physical Exam Const Constitutional Narrative: She does not appear as painful today. She is not restless. She is very alert and appropriate. She states she feels better today than yesterday. General Appearance: cooperative Eyes Eyes Narrative: No discharge from the eyes and no conjunctival hemorrhage or injection of the conjunctiva. Resp Resp Narrative: Not tachypneic, not coughing. She was able to take some deep breaths without moaning in pain. The lungs are clear to auscultation today. She has been usingthe I-S consistently. She has no conversational dyspnea and she is not tachypneic. Cardio no murmurs and no gallops Cardio Narrative: She is in atrial fibrillation with a controlled ventricular response. GI normal to inspection, nondistended, normoactive bowel sounds and soft to palpation GI Narrative: She had a large bowel movement this morning and denies feeling constipated any longer. She denies any crampy abdominal pain. Extremity Extremity Narrative: Please see plastic surgery note for description of the R knee today. Assessment & Plan Assessment/Plan (1) Physical debility: (2) Fall: QUALIFIERS: Encounter type: subsequent encounter Qualified Code(s): W19.XXXD - Unspecified fall, subsequent encounter (3) Subdural hematoma: (4) Multiple rib fractures: QUALIFIERS: Encounter type: subsequent encounter Fracture type: closed Laterality: bilateral (5) Traumatic hematoma of right knee: (6) Cellulitis: QUALIFIERS: Site of cellulitis: extremity Site of cellulitis of extremity: lower extremity Laterality: right Qualified Code(s): L03.115 - Cellulitis of right lower limb (7) Vertebral compression fracture: QUALIFIERS: Encounter type: subsequent encounter Fracture of vertebra location: lumbar Lumbar vertebra fracture level: L1 PLAN: T8 and L1 are new. Has had a kyphoplasty of L2 in the past and fractured L3 early in 2024. (8) Osteoporosis: QUALIFIERS: Osteoporosis type: age-related Presence of current pathological fracture: with current pathological fracture Encounter type: subsequent encounter Fracture healing: with delayed healing Qualified Code(s): M80.00XG - Age-related osteoporosis with current pathological fracture, unspecifiedsite, subsequent encounter for fracture with delayed healing PLAN: Severe. Not currently on tx. Vitamin D level is low but, pt tells me that she is taking 50 mcg of Vitamin D daily. (9) Exercise hypoxemia: (10) Compression fracture of L3 vertebra: QUALIFIERS: Encounter type: sequela Qualified Code(s): S32.030S -Wedge compression fracture of third lumbar vertebra, sequela PLAN: Old. Seeing Dr. Malagon for this. (11) Chronic pain: QUALIFIERS: Chronic pain type: chronic pain syndrome Qualified Code(s): G89.4 - Chronic pain syndrome PLAN: She has chronic pain syndrome which is managed by Dr. Hall from pain management. She now has acute exacerbation secondary to a fall with multiple rib fractures and a subdural hematoma. (12) Chronic anticoagulation: PLAN: On hold for SDH. (13) Paroxysmal atrial fibrillation: (14) Dehydration: (15) Psoriatic arthritis: (16) Vitamin D deficiency: (17) Mild cognitive impairment of uncertain or unknown etiology: PLAN: Scored 40 out of a possible 50 on the BCAT. (18) Pulmonary nodule 1 cm or greater in diameter: PLAN: Plan 1. Continue therapy 2. No changes to the drug regimen today 3. Continue wet-to-dry dressing twice daily 4. She is tolerating Fosamax with no exacerbation of GERD/heartburn. Will transition to 70 mg of Fosamax once a week on Monday. Charges/Coding Visit Charges Inpatient E&M: 53620 Subs Hosp L1 05/02/251803 Keerthi Son DO Cosigner Signature (if applicable): CC: ~ Signed [facility]09-11-2025 Progress note Author Keerthi Son [facility] Note Date/Time May 01, 2025 4:18pm [facility] Medical Records Department [address] [place] [address] Progress Note 05/01/25 0832 MR#: [id number] Acct: [id number] Name: LESLI ROSALES Rep #:[id number] : 1940 85 From: Keerthi Son DO PCP: Dr. Marty Guthrie MD Status:ADM I N Location: [place] [address]1 Subjective Subjective Day #2 Keflex for superficial cellulitis of the right knee. Status post incision and drainage by Dr. Plasencia on 04/30/2025. Afebrile VSS -blood pressure over the past 24 hours has ranged from 106/79 to 142/86. The last 3 blood pressures have been at goal. Maintaining appropriate oxygen saturation on RA Oral intake - FOOD good FLUIDS good She has had 2 postvoid residuals and they are both 0. Discussed with nursing - no problems that need addressed Reviewed the THERAPY notes Medication list reviewed. She had 3 doses of oxycodone 5 mg yesterday. Gram stain and culture of the wound drainage is pending. Vitamin D level yesterday was low at 27.6 despite the fact that she is supposed to be taking 50 mcg of [address]calc[address] daily. Dr. Hall increased the Butrans patch to 10 mcg today and pt tells me the pain is better controlled today than yesterday. Denies lightheadedness. She is constipated and has not had a BM in a few days. Denies cough and denies SOB at rest currently. She became SOB early this morning and night nurses applied oxygen. Pulse ox with ambulation today decreased to 86% on room air. Denies dysuria. No hemoptysis. Denies chest pain/heartburn/nausea. She has a small area on the R low back that is itchy and she is worried about shingles. She tells me that she slept well last night. Echocardiogram at [facility] in October 2024 showed an ejection fraction of 60% with a normal left ventricular size. There was biatrial enlargement and mild TR. Has had CHF in the past.......possibly due to AF/RVR? Objective Data Objective Data Vital Signs: Vital Signs Temp Pulse Resp BP Pulse Ox O2 Del Method O2 Flow Rate 97.6 F L 65 15 125/70 H 87 Room Air 1 05/01/25 05:18 05/01/25 05:18 05/01/25 05:18 05/01/25 05:18 05/01/25 07:00 05/01/25 07:00 05/01/25 05:18 Oxygen Flow Rate (L/min) 1 Oxygen Delivery Method Room Air Weight: 136 lb 0.015 oz Body Mass Index (BMI) 26.5 Intake & Output: Intake and Output for Last 24 Hours 04/29/25 04/30/25 05/01/25 23:59 23:59 23:59 Intake Total 1540 / 1690 820 / 820 Output Total 375 / 375 1350 / 1350 200 / 200 Balance -375 / -375 190 / 340 620 / 620 Lab / Micro Data 04/30/25 07:35 04/30/25 07:35 Labs: Laboratory Results - last 24 hr 04/30/25 07:35: Sodium 142, Potassium 3.8, Chloride 103, Carbon Dioxide 31.1, Anion Gap 8, BUN 20 H, Creatinine 0.38 L, Estim Creat Clear Calc 42.95 L, Est GFR (MDRD) Non-Af 99, BUN/Creatinine Ratio 51.2 H, Glucose 119 H, Hemoglobin A1c5.1, Calcium 9.6, Phosphorus 3.5, Magnesium 2.1, Total Bilirubin 1.09, Direct Bilirubin 0.43 H, AST 32, ALT 14, Alkaline Phosphatase 118 H, Total Protein 6.3,Albumin 3.2 L, Globulin 3.1, Vitamin D 25-Hydroxy 27.6 L Physical Exam Const alert Constitutional Narrative: appears tired after having 3 hours of therapy today. She awakens easily and is appropriate. Having pain and moaning with any movement but, tells me that it isbetter than yesterday. General Appearance: cooperative Eyes Eyes Narrative: No discharge from the eyes and no conjunctival hemorrhage or injection of the conjunctiva. Neck supple Resp normal respiratory effort Resp Narrative: Not tachypneic, not coughing. She was able to take some deep breaths without moaning in pain. The lungs anterior and lateral are clear to auscultation with no crackles or wheezes. She has no conversational dyspnea and she is not tachypneic. Cardio no murmurs and no gallops Cardio Narrative: She is in atrial fibrillation with a controlled ventricular response. GI GI Narrative: The abdomen is soft and mildly distended. There are decreased bowel sounds present. No pain with palpation of the abdomen. slightly tympanic. No BM for a few days. Extremity Extremity Narrative: Please see plastic surgery note for description of the R knee today. Skin Wound Narrative: She has a very small skin tear over the low back on the R. There is no rash andshe does not have shingles. The area is not painful to touch. Assessment & Plan Assessment/Plan (1) Physical debility: (2) Fall: QUALIFIERS: Encounter type: subsequent encounter Qualified Code(s): W19.XXXD - Unspecified fall, subsequent encounter (3) Subdural hematoma: (4) Multiple rib fractures: QUALIFIERS: Encounter type: subsequent encounter Fracture type: closed Laterality: bilateral (5) Traumatic hematoma of right knee: (6) Cellulitis: QUALIFIERS: Site of cellulitis: extremity Site of cellulitis of extremity: lower extremity Laterality: right Qualified Code(s): L03.115 - Cellulitis of right lower limb (7) Vertebral compression fracture: QUALIFIERS: Encounter type: subsequent encounter Fracture of vertebra location: lumbar Lumbar vertebra fracture level: L1 PLAN: T8 and L1 are new. Has had a kyphoplasty of L2 in the past and fractured L3 early in 2024. (8) Osteoporosis: QUALIFIERS: Osteoporosis type: age-related Presence of current pathological fracture: with current pathological fracture Encounter type: subsequent encounter Fracture healing: with delayed healing Qualified Code(s): M80.00XG - Age-related osteoporosis with current pathological fracture, unspecified site, subsequent encounter for fracture with delayed healing PLAN: Severe. Not currently on tx. Vitamin D level is low but, pt tells me that she is taking 50 mcg of Vitamin D daily. (9) Exercise hypoxemia: (10) Compression fracture of L3 vertebra: QUALIFIERS: Encounter type: sequela Qualified Code(s): S32.030S -Wedge compression fracture of third lumbar vertebra, sequela PLAN: Old. Seeing Dr. Malagon for this. (11) Chronic pain: QUALIFIERS: Chronic pain type: chronic pain syndrome Qualified Code(s): G89.4 - Chronic pain syndrome PLAN: She has chronic pain syndrome which is managed by Dr. Hall from pain management. She now has acute exacerbation secondary to a fall with multiple rib fractures and a subdural hematoma. (12) Chronic anticoagulation: PLAN: On hold for SDH. (13) Paroxysmal atrial fibrillation: (14) Dehydration: (15) Psoriatic arthritis: (16) Vitamin D deficiency: (17) Mild cognitive impairment of uncertain or unknown etiology: PLAN: Scored 40 out of a possible 50 on the BCAT. (18) Pulmonary nodule 1 cm or greater in diameter: PLAN: Plan 1. Continue therapy 2. She tolerated Fosamax this morning with no complaint of heartburn/chest pain. Will continue Fosamax and the increased dose of famotidine to twice daily. If she tolerates Fosamax daily for a few days we will transition to 70 mg once weekly. She will follow-up with Dr. Kendell Liang postdischarge to arrange for Prolia or Reclast. 3. I reviewed the CT scan of the chest done on 04/22. 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 She can lie flat in bed with no SOB. Will get her records from Dr. Guthrie and see if she has any PFT's or pulmonary consults. She also has a pulmonary nodule in the R lung. Will continue to hold Lasix 4. Overnight trending pulse ox tonight 5. Laxative today and if no bowel movement will obtain a KUB in the a.m. and also a PA and lateral chest x-ray to evaluate for effusion/CHF. 6. Continue to hold Xarelto. Will continue Lovenox 30 mg SQ every 12 hours. Charges/Coding Visit Charges Inpatient E&M: 55875 Subs Hosp L1 05/01/25 1614 <Electronically signed by Keerthi Son DO> Keerthi Son DO Cosigner Signature (if applicable): CC: ~ Signed [facility] Work Phone: [phone]) 925-988209-11-2025 History and physical note [facility] Note Date/Time May 01, 2025 3:54pm [facility] Medical Records Department [address] [place] [address] History & Physical Exam 04/30/25 0959 MR#: [id number] Acct: [id number] Name: LESLI ROSALES Rep #:[id number] : 1940 85 From: Keerthi Son DO PCP: Dr. Marty Guthrie MD Status:ADM I N Location: [place] [address] HPI - General General Date of Admission: 04/29/25 Date of Service: 04/30/25 Chief Complaint: SDH HPI Narrative LESLI ROSALES, is a 85 YO F with a PMH of hypertension, PAF, chronic anticoagulation with Xarelto, chronic diastolic congestive heart failure with preserved ejection fraction of 60%, biatrial enlargement (left greater than right), tricuspid regurgitation, history of tobacco dependence, COPD, anxiety/depression, GERD, psoriatic arthritis (on Skyrizi every 3 months), history of shingles, history of a proximal right humeral fracture, osteoporosis (on Forteo), chronic pain syndrome (follows with Dr. Hall for pain management), CONCEPCION and thoracic/lumbar compression fractures (+ hx of kyphoplasty of L2) who presented to the emergency department at [facility] on 04/22/2025 complaining of feeling dizzy "all day long". The dizziness led to afall and she was complaining of left shoulder pain. CT scan of the brain showeda subdural hemorrhage which was 6 mm in thickness with no mass effect. CT of the chest showed multiple bilateral nondisplaced rib fractures. There were multiple vertebral compression fractures including T8, L1 and L2. Left hand x-ray showed a probable nondisplaced fracture of the left scaphoid but, when seen by ortho at previous hospital they did not feel there was a fx present. XRAYS ofthe right knee showed no fracture or dislocation. There was prepatellar swelling due to a superficial hematoma. She was given K Centra and transferred to [facility] to the trauma service. Consult was obtained with neurosurgery. A repeat CT head showed improvement in the right frontal subdural hematoma and there was also interhemispheric subdural hematoma noted. No surgical intervention was indicated. Neurosurgery recommended holding Xarelto but, they were okay with Lovenox 30 mg SQ every 12 hours. No significant complications while at the previous hospital. She was transferred to the acute inpt rehab unit at [facility] on 04/29/25 for 3 hours of therapy daily to restore function/independence at or near her level prior to the fall. Lesli was transferred to the acute inpt rehab unit at [facility] on 04/29/25 for 3 hours of therapy daily to restore function/independence at or near her level prior to the recent fall. All lab from this morning was personally reviewed. White blood cell count is normal at 8.1 with an unremarkable differential. Hemoglobin is 13.9 which is down from 15.1 on 04/22/25. MCV is elevated at 104.9. Platelets are within normal limits. Sodium is 08/24/2019 with a creatinine of 0.38 and a BUN/creatinine ratio of 51.2. FBS is elevated at 119. Calcium, phosphorus and magnesium are all within normal limits. B12 and folate in December 2024 were normal. TSH was 1.16 in December. Vitamin D level was normal in December 2024. Lesli slept well last night. She is having a lot of pain. Taking Oxycodone 5 mg every 4-5 hours. She is also on Butrans, [facility]. She tells me that she saw a doctor to be treated for osteoporosis and she was prescribed Forteo........insurance denied and so she has not received any tx forosteoporosis. [facility] Medical History (Updated 05/01/25 @ 15:[address] Keerthi Son, ) Chronic anticoagulation Paroxysmal atrial fibrillation Vitamin D deficiency Fracture of humerus, proximal, right, closed COPD exacerbation Acute cystitis without hematuria Osteoporosis Arthritis of left hip Compression fracture of L3 vertebra Osteopenia determined by x-ray Burst fracture of lumbar vertebra Compression fracture of L2 Abnormal finding on urinalysis Intractable back pain Leukocytosis Acute cystitis with hematuria Overweight (BMI 25.0-29.9) Ambulatory dysfunction Generalized weakness Unable to care for self Inability to perform activities of daily living Closed compression fracture of lumbosacral spine Back pain Anxiety Depression Chronic pain GERD (gastroesophageal reflux disease) On home oxygen therapy Atrial fibrillation Congestive heart failure (CHF) Hypertension Psoriatic arthritis COPD (chronic obstructive pulmonary disease) A-fib Home Medications ?Medication ?Instructions ?Recorded ?Last Taken ?Type atenolol 25 mg tablet 25 mg PO DAILY Atrial fibril lation 06/26/21 12/30/24 History famotidine 20 mg tablet 20 mg PO DAILY reflux 04/29/25 History folic acid 1 mg tablet 1 mg PO DAILY supplement 02/0812/24/24 History rivaroxaban 20 mg tablet (Xarelto) 20 mg PO DAILY AFIB 06/26/21 12/24/24 History Held on 04/29/25. Instructions: Ordered cholecalciferol (vitamin D3) 50 50 mcg PO DAILY supple ment 11/17/24 12/24/24 History mcg (2,000 unit) capsule albuterol sulfate 90 mcg/actuation 2 puff inhalation Q 6H PRN dyspnea 11/18/24 Unknown History aerosol inhaler tiotropium bromide 18 mcg capsule 1 cap inhalation RUTH LY PRN 11/18/24 12/24/24 History with inhalation device (Spiriva shortness of breath with HandiHaler) risankizumab-rzaa 150 mg/mL 150 mg subcut Q90D . 12/2412/18/24 History subcutaneous pen injector (Marisanilamthu) Held on 04/29/25. Instructions: pt family to bring lidocaine 5 % topical patch 2 patch topical DAILY pain #60 ea 01/01/25 Unknown Rx baclofen 5 mg tablet 5 mg PO QHS pain 04/22/25 History oxycodone-acetaminophen 5 mg-325 1 tab PO TID pain 10/15 Unknown History mg tablet Held on 04/29/25. Instructions: MD Ordered acetaminophen 500 mg tablet 1,000 mg PO Q8 pain 04/29/25 History empagliflozin 10 mg tablet 10 mg PO DAILY glucose 05/15 Unknown History (Jardiance) enoxaparin 30 mg/0.3 mL 30 mg subcut Q12H dvt 04/29/25 History subcutaneous syringe (Lovenox) furosemide 20 mg tablet (Lasix) 20 mg PO DAILY PRN ruthie ght gain 04/29/25 Unknown History gabapentin 100 mg capsule 100 mg PO Q12H nerve pain 04/29/25 History ipratropium 0.5 mg-albuterol 3 mg 3 ml inhalation Q2H PRN shortness 04/29/25 Unknown History (2.5 mg base)/3 mL nebulization of breath or wheezing soln ipratropium bromide 0.02 % 1.25 ml inhalation Q6H PRN wheezing 04/29/25 Unknown History solution for inhalation melatonin 3 mg capsule 3 mg PO QHS sleep 04/29/25 U nknown History mometasone-formoterol HFA 100 2 inh inhalation BID sob 04/29/25 Unknown History mcg-5 mcg/actuation aerosol inhaler (Dulera) ondansetron 4 mg disintegrating 8 mg PO Q8H PRN nausea and vomiting 04/29/25 Unknown History tablet oxycodone 5 mg tablet 5 mg PO Q4H PRN Pain Score1- 10 04/29/25 04/29/25 History buprenorphine 5 mcg/hour weekly 1 patch transdermal Q7 D blood 04/30/25 04/24/25 History transdermal patch (Butrans) pressure OXYGEN - Supplemental ([facility] 05/01/25 Unknown History INFORMATIONAL USE ONLY) Allergy/AdvReac Type Severity Reaction Status Date / Time No Known Allergies Allergy Verified 04/22/25 18:40 Family History unable to obtain Surgical History (Updated 05/01/25 @ 15:[address] Keerthi Son, DO) Status post kyphoplasty History of partial hysterectomy History of bladder suspension procedure History of appendectomy History of cholecystectomy H/O hernia repair Social History household members: children and none housing: house Smoking Status: Former smoker substance use type: does not use Vital Signs Vital Signs Vital Signs: 04/29/25 18:40 04/29/25 19:05 04/29/25 22:00 Temperature 98.5 F Temperature Source Temporal Pulse Rate 82 Pulse Strength Normal (2+) Respiratory Rate 18 Respiratory Effort Normal Non-Labored Respiratory Depth Normal Blood Pressure 141/88 H Blood Pressure Mean 105 Blood Pressure Source Monitor Blood Pressure Position Semi-Fowlers Blood Pressure Location Right Arm Pulse Ox 95 95 Oxygen Delivery Method Nasal Cannula Nasal Cannula Oxygen Flow Rate (L/min) 1 1 04/29/25 22:00 04/29/25 22:00 04/30/25 06:00 Temperature 98.9 F 98.7 F Temperature Source Temporal Temporal Pulse Rate 71 76 Pulse Strength Respiratory Rate 16 16 Respiratory Effort Normal Non-Labored Respiratory Depth Normal Blood Pressure 136/77 H 142/86 H Blood Pressure Mean 96 104 Blood Pressure Source Monitor Monitor Blood Pressure Position Semi-Fowlers Sitting Blood Pressure Location Right Arm Left Arm Pulse Ox 95 95 92 Oxygen Delivery Method Nasal Cannula Nasal Cannula Nasal Cannula Oxygen Flow Rate (L/min) 1 1 1 04/30/25 08:08 04/30/25 08:16 Temperature Temperature Source Pulse Rate Pulse Strength Normal (2+) Respiratory Rate Respiratory Effort Respiratory Depth Blood Pressure Blood Pressure Mean Blood Pressure Source Blood Pressure Position Blood Pressure Location Pulse Ox Oxygen Delivery Method Nasal Cannula Oxygen Flow Rate (L/min) 1 Weight Weight: 136 lb Body Mass Index (BMI) 26.5 Physical Exam Const alert and oriented x3 Constitutional Narrative: appears to be in pain with any movement Multiple areas of ecchymosis on the face/extremities/torso. General Appearance: cooperative and well kempt HEENT HEENT Narrative: She has periorbital bruising of the R periorbital area/face/forehead MM are dry. No evidence of thrush No lacerations of the scalp Eyes PERRL, EOMs intact bilaterally, conjunctivae normal and no scleral icterus Eyes Narrative: No visual field cuts no discharge from the eyes and no mattering of the eyelashes. Periorbital ecchymosis on the right and some mild swelling. Neck supple and No nodes General: trachea midline Chest Chest Narrative: Splinting the left side of the chest due to pain with inspiration. Resp normal respiratory effort and clear to auscultation bilaterally Resp Narrative: No tachypneic. Desaturated on RA to 86% with ambulation. Wears O2 PRN at home.....when she is SOB Effort and Inspection: able to speak in complete sentences Cardio no gallops and no JVD Cardio Narrative: Irregular irregular rhythm with controlled ventricular response. No murmur appreciated. GI GI Narrative: Decreased bowel sounds. No guarding with palpation. Soft, mildly tympanic. Nobowel movement since admission. Back/Spine Back/Spine Narrative: tender any where I touch her on the back. Extremity Extremity Narrative: There is a hematoma over the R knee with an eschar present in the center. thereis a lot of bruising that extends down to the foot. There is erythema around the hematoma and there is increased warmth to touch. There is no DC from the eschar. She has pain with even light touch. Has pain with weight bearing. Skin General Skin Exam: ecchymosis Rashes: no rashes Neuro oriented x3 and CN's II-XII intact bilaterally Neuro Narrative: Can move all extremities but very painful. No visual field cuts. Tongue protrudes on the midline. No facial asymmetry. Grossly normal mentation. Not somnolent. Psych mental status grossly normal, cooperative and affect normal Psych Narrative: Scored 40 out of a possible 50 on the BCAT. This is consistent with mild cognitive impairment. Results Lab / Micro Data 04/30/25 07:35 04/30/25 07:35 Labs: Laboratory Results - last 24 hr 04/30/25 07:35: WBC 8.1, RBC 4.28, Hgb 13.9, Hct 44.9, MCV 104.9 H, MCH 32.5 H, MCHC 31.0 L, RDW Std Deviation 55.5 H, RDW Coeff of Mildred 14.3, Plt Count 215, MPV10.5, Immature Gran % (Auto) 0.700, Neut % (Auto) 64.6, Lymph % (Auto) 23.4, Sauk % (Auto) 7.5, Eos % (Auto) 3.1, Baso % (Auto) 0.7, Absolute Neuts (auto) 5.2, Absolute Lymphs (auto) 1.90, Nucleated RBC % 0, Sodium 142, Potassium 3.8, Chloride 103, Carbon Dioxide 31.1, Anion Gap 8, BUN 20 H, Creatinine 0.38 L, Estim Creat Clear Calc 42.95 L, Est GFR (MDRD) Non-Af 99, BUN/Creatinine Ratio 51.2 H, Glucose 119 H, Calcium 9.6, Phosphorus 3.5, Magnesium 2.1 Assessment & Plan Assessment/Plan (1) Physical debility: (2) Fall: QUALIFIERS: Encounter type: subsequent encounter Qualified Code(s): W19.XXXD - Unspecified fall, subsequent encounter (3) Subdural hematoma: (4) Multiple rib fractures: QUALIFIERS: Encounter type: subsequent encounter Fracture type: closed Laterality: bilateral (5) Traumatic hematoma of right knee: (6) Cellulitis: QUALIFIERS: Site of cellulitis: extremity Site of cellulitis of extremity: lower extremity Laterality: right Qualified Code(s): L03.115 - Cellulitis of right lower limb (7) Vertebral compression fracture: QUALIFIERS: Encounter type: subsequent encounter Fracture of vertebra location: lumbar Lumbar vertebra fracture level: L1 PLAN: T8 and L1 are new. Has had a kyphoplasty of L2 in the past and fractured L3 early in 2024. (8) Osteoporosis: QUALIFIERS: Osteoporosis type: age-related Presence of current pathological fracture: with current pathological fracture Encounter type: subsequent encounter Fracture healing: with delayed healing Qualified Code(s): M80.00XG - Age-related osteoporosis with current pathological fracture, unspecified site, subsequent encounter for fracture with delayed healing PLAN: Severe. Not currently on tx. Vitamin D level is low but, pt tells me that she is taking 50 mcg of Vitamin D daily. (9) Exercise hypoxemia: (10) Compression fracture of L3 vertebra: QUALIFIERS: Encounter type: sequela Qualified Code(s): S32.030S -Wedge compression fracture of third lumbar vertebra, sequela PLAN: Old. Seeing Dr. Malagon for this. (11) Chronic pain: QUALIFIERS: Chronic pain type: chronic pain syndrome Qualified Code(s): G89.4 - Chronic pain syndrome PLAN: She has chronic pain syndrome which is managed by Dr. Hall from pain management. She now has acute exacerbation secondary to a fall with multiple rib fractures and a subdural hematoma. (12) Chronic anticoagulation: PLAN: On hold for SDH. (13) Paroxysmal atrial fibrillation: (14) Dehydration: (15) Psoriatic arthritis: (16) Vitamin D deficiency: (17) Mild cognitive impairment of uncertain or unknown etiology: PLAN: Scored 40 out of a possible 50 on the BCAT. PLAN: Plan PLAN PT for gait stability OT for ADL's ST for evaluation Analgesics as needed Bowel protocol Fall precautions Assess for Anxiety/Depression GI prophylaxis -famotidine. Increased from 20 mg once daily to 20 mg twice daily because we are starting Fosamax for treatment of severe osteoporosis. Will have her follow-up with Dr. Kendell Liang postdischarge to manage osteoporosis. DVT prophylaxis with Lovenox 30 mg every 12 hours. Continue to hold Xarelto dueto subdural hematoma. Follow up with neurosurgery, PCP, Dr. Kendell Liang for osteoporosis, cardiology and pain management following DC from IP Rehab AM lab including CMP, CBC, Mag and Phos-all personally reviewed Consult Dr. Plasencia for suspected infected hematoma involving the right knee Consult Dr. Hall for assistance with pain management Start Fosamax 10 mg p.o. every morning and if she tolerates this with no exacerbation of GERD will transition to 70 mg once a week Recommend follow-up with Dr. Kendell Liang postdischarge for treatment of severe osteoporosis Continue vitamin D supplement and check a vitamin D level today. Start Keflex 500 mg p.o. 3 times daily 90 Minutes spent reviewing past diagnostic tests, lab results, vital sign trends, medical history, medications, all additional paperwork sent by the previous hospital, and ordering medications, examining the the patient and completing documentation. Charges/Coding Visit Charges Inpatient E&M: 30313 Init Hosp L3 05/01/25 5853 <Electronically signed by Keerthi Son DO> Cosigner Signature (if applicable): CC: Dr. Daniel Hall MD; Dr. Mike Malagon MD; Dr. Keerthi Son DO;Dr. Marty Guthrie MD~ Signed [facility] Work Phone: [phone]) 761-429509-11-2025 Progress note [facility] Medical Records Department [address] [place] [address] Progress Note 05/01/25 0832 MR#: [id number] Acct: [id number] Name: LESLI ROSALES Rep #:[id number] : 1940 85 From: Keerthi Son DO PCP: Dr. Marty Guthrie MD Status:ADM I N Location: ZS580-3 Subjective Subjective Day #2 Keflex for superficial cellulitis of the right knee. Status post incision and drainage by Dr. Plasencia on 04/30/2025. Afebrile VSS -blood pressure over the past 24 hours has ranged from 106/79 to 142/86. The last 3 blood pressures have been at goal. Maintaining appropriate oxygen saturation on RA Oral intake - FOOD good FLUIDS good She has had 2 postvoid residuals and they are both 0. Discussed with nursing - no problems that need addressed Reviewed the THERAPY notes Medication list reviewed. She had 3 doses of oxycodone 5 mg yesterday. Gram stain and culture of the wound drainage is pending. Vitamin D level yesterday was low at 27.6 despite the fact that she is supposed to be taking 50 mcg of cholecalciferol daily. Dr. Hall increased the Butrans patch to 10 mcg today and pt tells me the pain is better controlled today than yesterday. Denies lightheadedness. She is constipated and has not had a BM in a few days. Denies cough and denies SOB at rest currently. She became SOB early this morning and night nursesapplied oxygen. Pulse ox with ambulation today decreased to 86% on room air. Denies dysuria. No hemoptysis. Denies chest pain/heartburn/nausea. She has a small area on the R low back that is "itchy" and she is worried about shingles. She tells me that she slept well last night. Echocardiogram at [facility] in October 2024 showed an ejection fraction of 60% with a normal left ventricular size. There was biatrial enlargement and mild TR. Has had CHF in the past.......possibly due to AF/RVR? Objective Data Objective Data Vital Signs: Vital Signs Temp Pulse Resp BP Pulse Ox O2 Del Method O2 Flow Rate 97.6 F L 65 15 125/70 H 87 Room Air 1 05/01/25 05:18 05/01/25 05:18 05/01/25 05:18 05/01/25 05:18 05/01/25 07:00 05/01/25 07:00 05/01/25 05:18 Oxygen Flow Rate (L/min) 1 Oxygen Delivery Method Room Air Weight: 136 lb 0.015 oz Body Mass Index (BMI) 26.5 Intake & Output: Intake and Output for Last 24 Hours 04/29/25 04/30/25 05/01/25 23:59 23:59 23:59 Intake Total 1540 / 1690 820 / 820 Output Total 375 / 375 1350 / 1350 200 / 200 Balance -375 / -375 190 / 340 620 / 620 Lab / Micro Data 04/30/25 07:35 04/30/25 07:35 Labs: Laboratory Results - last 24 hr 04/30/25 07:35: Sodium 142, Potassium 3.8, Chloride 103, Carbon Dioxide 31.1, Anion Gap 8, BUN 20 H, Creatinine 0.38 L, Estim Creat Clear Calc 42.95 L, Est GFR (MDRD) Non-Af 99, BUN/Creatinine Ratio 51.2 H, Glucose 119 H, Hemoglobin A1c5.1, Calcium 9.6, Phosphorus 3.5, Magnesium 2.1, Total Bilirubin 1.09, Direct Bilirubin 0.43 H, AST 32, ALT 14, Alkaline Phosphatase 118 H, Total Protein 6.3,Albumin 3.2 L, Globulin 3.1, Vitamin D 25-Hydroxy 27.6 L Physical Exam Const alert Constitutional Narrative: appears tired after having 3 hours of therapy today. She awakens easily and is appropriate. Having pain and moaning with any movement but, tells me that it isbetter than yesterday. General Appearance: cooperative Eyes Eyes Narrative: No discharge from the eyes and no conjunctival hemorrhage or injection of the conjunctiva. Neck supple Resp normal respiratory effort Resp Narrative: Not tachypneic, not coughing. She was able to take some deep breaths without moaning in pain. The lungs anterior and lateral are clear to auscultation with no crackles or wheezes. She has no conversational dyspnea and she is not tachypneic. Cardio no murmurs and no gallops Cardio Narrative: She is in atrial fibrillation with a controlled ventricular response. GI GI Narrative: The abdomen is soft and mildly distended. There are decreased bowel sounds present. No pain with palpation of the abdomen. slightly tympanic. No BM for a few days. Extremity Extremity Narrative: Please see plastic surgery note for description of the R knee today. Skin Wound Narrative: She has a very small skin tear over the low back on the R. There is no rash andshe does not have shingles. The area is not painful to touch. Assessment & Plan Assessment/Plan (1) Physical debility: (2) Fall: QUALIFIERS: Encounter type: subsequent encounter Qualified Code(s): W19.XXXD - Unspecified fall, subsequent encounter (3) Subdural hematoma: (4) Multiple rib fractures: QUALIFIERS: Encounter type: subsequent encounter Fracture type: closed Laterality: bilateral (5) Traumatic hematoma of right knee: (6) Cellulitis: QUALIFIERS: Site of cellulitis: extremity Site of cellulitis of extremity: lower extremity Laterality: right Qualified Code(s): L03.115 - Cellulitis of right lower limb (7) Vertebral compression fracture: QUALIFIERS: Encounter type: subsequent encounter Fracture of vertebra location: lumbar Lumbar vertebra fracture level: L1 PLAN: T8 and L1 are new. Has had a kyphoplasty of L2 in the past and fractured L3 early in 2024. (8) Osteoporosis: QUALIFIERS: Osteoporosis type: age-related Presence of current pathological fracture: with current pathological fracture Encounter type: subsequent encounter Fracture healing: with delayed healing Qualified Code(s): M80.00XG - Age-related osteoporosis with current pathological fracture, unspecifiedsite, subsequent encounter for fracture with delayed healing PLAN: Severe. Not currently on tx. Vitamin D level is low but, pt tells me that she is taking 50 mcg of Vitamin D daily. (9) Exercise hypoxemia: (10) Compression fracture of L3 vertebra: QUALIFIERS: Encounter type: sequela Qualified Code(s): S32.030S -Wedge compression fracture of third lumbar vertebra, sequela PLAN: Old. Seeing Dr. Malagon for this. (11) Chronic pain: QUALIFIERS: Chronic pain type: chronic pain syndrome Qualified Code(s): G89.4 - Chronic pain syndrome PLAN: She has chronic pain syndrome which is managed by Dr. Hall from pain management. She now has acute exacerbation secondary to a fall with multiple rib fractures and a subdural hematoma. (12) Chronic anticoagulation: PLAN: On hold for SDH. (13) Paroxysmal atrial fibrillation: (14) Dehydration: (15) Psoriatic arthritis: (16) Vitamin D deficiency: (17) Mild cognitive impairment of uncertain or unknown etiology: PLAN: Scored 40 out of a possible 50 on the BCAT. (18) Pulmonary nodule 1 cm or greater in diameter: PLAN: Plan 1. Continue therapy 2. She tolerated Fosamax this morning with no complaint of heartburn/chest pain. Will continue Fosamax and the increased dose of famotidine to twice daily. If she tolerates Fosamax daily for a few days we will transition to 70 mg once weekly. She will follow-up with Dr. Kendell Liang postdischarge to arrange for Prolia or Reclast. 3. I reviewed the CT scan of the chest done on 04/22. 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 She can lie flat in bed with no SOB. Will get her records from Dr. Guthrie and see if she has any PFT's or pulmonary consults. She also has a pulmonary nodule in the R lung. Will continue to hold Lasix 4. Overnight trending pulse ox tonight 5. Laxative today and if no bowel movement will obtain a KUB in the a.m. and also a PA and lateral chest x-ray to evaluate for effusion/CHF. 6. Continue to hold Xarelto. Will continue Lovenox 30 mg SQ every 12 hours. Charges/Coding Visit Charges Inpatient E&M: 55020 Subs Hosp L1 05/01/25 1610 Keerthi Hernández Signature (if applicable): CC: ~ Signed [facility]09-11-2025 History and physical note [facility] Medical Records Department [address] [place] [address] History & Physical Exam 04/30/25 0959 MR#: [id number] Acct: [id number] Name: LESLI ROSALES Rep #:[id number] : 1940 85 From: Keerthi AmadorMorris Gurjitherminia PAULSON PCP: Dr. Marty Guthrie MD Status:ADM I N Location: [place] [address] HPI - General General Date of Admission: 04/29/25 Date of Service: 04/30/25 Chief Complaint: SDH HPI Narrative LESLI ROSALES, is a 85 YO F with a PMH of hypertension, PAF, chronic anticoagulation with Xarelto, chronic diastolic congestive heart failure with preserved ejection fraction of 60%, biatrial enlargement (left greater than right), tricuspid regurgitation, history of tobacco dependence, COPD, anx iety/depression, GERD, psoriatic arthritis (on Skyrizi every 3 months), history of shingles, history of a proximal right humeral fracture, osteoporosis (on Forteo), chronic pain syndrome (follows with Dr. Hall for pain management), CONCEPCION and thoracic/lumbar compression fractures (+ hx of kyphoplasty of L2) who presented to the emergency department at [facility] on 04/22/2025 complaining of feeling dizzy "all day long". The dizziness led to afall and she was complaining of left shoulder pain. CT scan of the brain showeda subdural hemorrhage which was 6 mm in thickness with no mass effect. CT of the chest showed multiple bilateral nondisplaced rib fractures. There were multiple v ertebral compression fractures including T8, L1 and L2. Left hand x-ray showed a probable nondisplaced fracture of the left scaphoid but, when seen by ortho at previous hospital they did not feel there was a fx present. XRAYS ofthe right knee showed no fracture or dislocation. There was prepatellarswelling due to a superficial hematoma. She was given K Centra and transferred to [facility] to the trauma service. Consult was obtained with neurosurgery. A repeat CT head showed improvement in the rightfrontal subdural hematoma and there was also interhemispheric subdural hematoma noted. No surgical intervention was indicated. Neurosurgery recommended holding Xarelto but, they were okay with Lovenox 30 mg SQ every 12 hours. No significant complications while at the previous hospital. She was transferred to the acute inpt rehab unit at [facility] on 04/29/25 for 3 hours of therapy daily to restore function/independence at or near her level prior to the fall. Lesli was transferred to the acute inpt rehab unit at [facility] on 04/29/25 for 3 hours of therapy dailyto restore function/independence at or near her level prior to the recent fall. All lab from this morning was personally reviewed. White blood cell count is normal at 8.1 with an unremarkable differential. Hemoglobin is 13.9 which is down from 15.1 on 04/22/25. MCV is elevated at 104.9. Platelets are within normal limits. Sodium is 08/24/2019 with a creatinine of 0.38 and a BUN/creatinine ratio of 51.2. FBS is elevated at 119. Calcium, phosphorus and magnesium are all within normal limits. B12 and folate in December 2024 were normal. TSH was 1.16 in December. Vitamin D level was normal in December 2024. Lesli slept well last night. She is having a lot of pain. Taking Oxycodone 5 mg every 4-5 hours.She is also on Butrans, [facility]. She tells me that she saw a doctor to be treated for osteoporosis and she was prescribed Forteo........insurance denied and so she has not received any tx forosteoporosis. [facility] Medical History (Updated 05/01/25 @ 15:[address] Keerthi Son, ) Chronic anticoagulation Paroxysmal atrial fibrillation Vitamin D deficiency Fracture of humerus, proximal, right, closed COPD exacerbation Acute cystitis without hematuria Osteoporosis Arthritis of left hip Compression fracture of L3 vertebra Osteopenia determined by x-ray Burst fracture of lumbar vertebra Compression fracture of L2 Abnormal finding on urinalysis Intractable back pain Leukocytosis Acute cystitis with hematuria Overweight (BMI 25.0-29.9) Ambulatory dysfunction Generalized weakness Unable to care for self Inability to perform activities of daily living Closed compression fracture of lumbosacral spine Back pain Anxiety Depression Chronic pain GERD (gastroesophageal reflux disease) On home oxygen therapy Atrial fibrillation Congestive heart failure (CHF) Hypertension Psoriatic arthritis COPD (chronic obstructive pulmonary disease) A-fib Home Medications ?Medication ?Instructions ?Recorded ?Last Taken ?Type atenolol 25 mg tablet 25 mg PO DAILY Atrial fibril lation 06/26/21 12/30/24 History famotidine 20 mg tablet 20 mg PO DAILY reflux 04/29/25 History folic acid 1 mg tablet 1 mg PO DAILY supplement 02/0812/24/24 History rivaroxaban 20 mg tablet (Xarelto) 20 mg PO DAILY AFIB 06/26/21 12/24/24 History Held on 04/29/25. Instructions: MD Ordered cholecalciferol (vitamin D3) 50 50 mcg PO DAILY supple ment 11/17/24 12/24/24 History mcg (2,000 unit) capsule albuterol sulfate 90 mcg/actuation 2 puff inhalation Q 6H PRN dyspnea 11/18/24 Unknown History aerosol inhaler tiotropium bromide 18 mcg capsule 1 cap inhalation RUTH LY PRN 11/18/24 12/24/24 History with inhalation device (Spiriva shortness of breath with HandiHaler) risankizumab-rzaa 150 mg/mL 150 mg subcut Q90D . 12/2412/18/24 History subcutaneous pen injector (Skyrizi) Held on 04/29/25. Instructions: pt family to bring lidocaine 5 % topical patch 2 patch topical DAILY pain #60 ea 01/01/25 Unknown Rx baclofen 5 mg tablet 5 mg PO QHS pain 04/22/25 History oxycodone-acetaminophen 5 mg-325 1 tab PO TID pain 10/15 Unknown History mg tablet Held on 04/29/25. Instructions: Ordered acetaminophen 500 mg tablet 1,000 mg PO Q8 pain 04/29/25 History empagliflozin 10 mg tablet 10 mg PO DAILY glucose 05/15 Unknown History (Jardiance) enoxaparin 30 mg/0.3 mL 30 mg subcut Q12H dvt 04/29/25 History subcutaneous syringe (Lovenox) furosemide 20 mg tablet (Lasix) 20 mg PO DAILY PRN ruthie ght gain 04/29/25 Unknown History gabapentin 100 mg capsule 100 mg PO Q12H nerve pain 04/29/25 History ipratropium 0.5 mg-albuterol 3 mg 3 ml inhalation Q2H PRN shortness 04/29/25 Unknown History (2.5 mg base)/3 mL nebulization of breath or wheezing soln ipratropium bromide 0.02 % 1.25 ml inhalation Q6H PRN wheezing 04/29/25 Unknown History solution for inhalation melatonin 3 mg capsule 3 mg PO QHS sleep 04/29/25 U nknown History mometasone-formoterol HFA 100 2 inh inhalation BID sob 04/29/25 Unknown History mcg-5 mcg/actuation aerosol inhaler (Dulera) ondansetron 4 mg disintegrating 8 mg PO Q8H PRN nausea and vomiting 04/29/25 Unknown History tablet oxycodone 5 mg tablet 5 mg PO Q4H PRN Pain Score1- 10 04/29/25 04/29/25 History buprenorphine 5 mcg/hour weekly 1 patch transdermal Q7 D blood 04/30/25 04/24/25 History transdermal patch (Butrans) pressure OXYGEN - Supplemental ([facility] 05/01/25 Unknown History INFORMATIONAL USE ONLY) Allergy/AdvReac Type Severity Reaction Status Date / Time No Known Allergies Allergy Verified 04/22/25 18:40 Family History unable to obtain Surgical History (Updated 05/01/25 @ 15:[address] Keerthi Son, DO) Status post kyphoplasty History of partial hysterectomy History of bladder suspension procedure History of appendectomy History of cholecystectomy H/O hernia repair Social History household members: children and none housing: house Smoking Status: Former smoker substance use type: does not use Vital Signs Vital Signs Vital Signs: 04/29/25 18:40 04/29/25 19:05 04/29/25 22:00 Temperature 98.5 F Temperature Source Temporal Pulse Rate 82 Pulse Strength Normal (2+) Respiratory Rate 18 Respiratory Effort Normal Non-Labored Respiratory Depth Normal Blood Pressure 141/88 H Blood Pressure Mean 105 Blood Pressure Source Monitor Blood Pressure Position Semi-Fowlers Blood Pressure Location Right Arm Pulse Ox 95 95 Oxygen Delivery Method Nasal Cannula Nasal Cannula Oxygen Flow Rate (L/min) 1 1 04/29/25 22:00 04/29/25 22:00 04/30/25 06:00 Temperature 98.9 F 98.7 F Temperature Source Temporal Temporal Pulse Rate 71 76 Pulse Strength Respiratory Rate 16 16 Respiratory Effort Normal Non-Labored Respiratory Depth Normal Blood Pressure 136/77 H 142/86 H Blood Pressure Mean 96 104 Blood Pressure Source Monitor Monitor Blood Pressure Position Semi-Fowlers Sitting Blood Pressure Location Right Arm Left Arm Pulse Ox 95 95 92 Oxygen Delivery Method Nasal Cannula Nasal Cannula Nasal Cannula Oxygen Flow Rate (L/min) 1 1 1 04/30/25 08:08 04/30/25 08:16 Temperature Temperature Source Pulse Rate Pulse Strength Normal (2+) Respiratory Rate Respiratory Effort Respiratory Depth Blood Pressure Blood Pressure Mean Blood Pressure Source Blood Pressure Position Blood Pressure Location Pulse Ox Oxygen Delivery Method Nasal Cannula Oxygen Flow Rate (L/min) 1 Weight Weight: 136 lb Body Mass Index (BMI) 26.5 Physical Exam Const alert and oriented x3 Constitutional Narrative: appears to be in pain with any movement Multiple areas of ecchymosis on the face/extremities/torso. General Appearance: cooperative and well kempt HEENT HEENT Narrative: She has periorbital bruising of the R periorbital area/face/forehead MM are dry. No evidence of thrush No lacerations of the scalp Eyes PERRL, EOMs intact bilaterally, conjunctivae normal and no scleral icterus Eyes Narrative: No visual field cuts no discharge from the eyes and no mattering of the eyelashes. Periorbital ecchymosis on the right and some mild swelling. Neck supple and No nodes General: trachea midline Chest Chest Narrative: Splinting the left side of the chest due to pain with inspiration. Resp normal respiratory effort and clear to auscultation bilaterally Resp Narrative: No tachypneic. Desaturated on RA to 86% with ambulation. Wears O2 PRN at home.....when she is SOB Effort and Inspection: able to speak in complete sentences Cardio no gallops and no JVD Cardio Narrative: Irregular irregular rhythm with controlled ventricular response. No murmur appreciated. GI GI Narrative: Decreased bowel sounds. No guarding with palpation. Soft, mildly tympanic. Nobowel movement since admission. Back/Spine Back/Spine Narrative: tender any where I touch her on the back. Extremity Extremity Narrative: There is a hematoma over the R knee with an eschar present in the center. thereis a lot of bruisingthat extends down to the foot. There is erythema around the hematoma and there is increased warmth to touch. There is no DC from the eschar. She has pain with even light touch. Has pain with weight bearing. Skin General Skin Exam: ecchymosis Rashes: no rashes Neuro oriented x3 and CN's II-XII intact bilaterally Neuro Narrative: Can move all extremities but very painful. No visual field cuts. Tongue protrudes on the midline. No facial asymmetry. Grossly normal mentation. Not somnolent. Psych mental status grossly normal, cooperative and affect normal Psych Narrative: Scored 40 out of a possible 50 on the BCAT. This is consistent with mild cognitive impairment. Results Lab / Micro Data 04/30/25 07:35 04/30/25 07:35 Labs: Laboratory Results - last 24 hr 04/30/25 07:35: WBC 8.1, RBC 4.28, Hgb 13.9, Hct 44.9, MCV 104.9 H, MCH 32.5 H, MCHC 31.0 L, RDW Std Deviation 55.5 H, RDW Coeff of Mildred 14.3, Plt Count 215, MPV10.5, Immature Gran % (Auto) 0.700, Neut % (Auto) 64.6, Lymph % (Auto) 23.4, Sauk % (Auto) 7.5, Eos % (Auto) 3.1, Baso % (Auto) 0.7, Absolute Neuts (auto) 5.2, Absolute Lymphs (auto) 1.90, Nucleated RBC % 0, Sodium 142, Potassium 3.8, Chloride 103, Carbon Dioxide 31.1, Anion Gap 8, BUN 20 H, Creatinine 0.38 L, Estim Creat Clear Calc 42.95 L, Est GFR (MDRD) Non-Af 99, BUN/Creatinine Ratio 51.2 H, Glucose 119 H, Calcium 9.6, Phosphorus 3.5, Magnesium 2.1 Assessment & Plan Assessment/Plan (1) Physical debility: (2) Fall: QUALIFIERS: Encounter type: subsequent encounter Qualified Code(s): W19.XXXD - Unspecified fall, subsequent encounter (3) Subdural hematoma: (4) Multiple rib fractures: QUALIFIERS: Encounter type: subsequent encounter Fracture type: closed Laterality: bilateral (5) Traumatic hematoma of right knee: (6) Cellulitis: QUALIFIERS: Site of cellulitis: extremity Site of cellulitis of extremity: lower extremity Laterality: right Qualified Code(s): L03.115 - Cellulitis of right lower limb (7) Vertebral compression fracture: QUALIFIERS: Encounter type: subsequent encounter Fracture of vertebra location: lumbar Lumbar vertebra fracture level: L1 PLAN: T8 and L1 are new. Has had a kyphoplasty of L2 in the past and fractured L3 early in 2024. (8) Osteoporosis: QUALIFIERS: Osteoporosis type: age-related Presence of current pathological fracture: with current pathological fracture Encounter type: subsequent encounter Fracture healing: with delayed healing Qualified Code(s): M80.00XG - Age-related osteoporosis with current pathological fracture, unspecifiedsite, subsequent encounter for fracture with delayed healing PLAN: Severe. Not currently on tx. Vitamin D level is low but, pt tells me that she is taking 50 mcg of Vitamin D daily. (9) Exercise hypoxemia: (10) Compression fracture of L3 vertebra: QUALIFIERS: Encounter type: sequela Qualified Code(s): S32.030S -Wedge compression fracture of third lumbar vertebra, sequela PLAN: Old. Seeing Dr. Malagon for this. (11) Chronic pain: QUALIFIERS: Chronic pain type: chronic pain syndrome Qualified Code(s): G89.4 - Chronic pain syndrome PLAN: She has chronic pain syndrome which is managed by Dr. Hall from pain management. She now has acute exacerbation secondary to a fall with multiple rib fractures and a subdural hematoma. (12) Chronic anticoagulation: PLAN: On hold for SDH. (13) Paroxysmal atrial fibrillation: (14) Dehydration: (15) Psoriatic arthritis: (16) Vitamin D deficiency: (17) Mild cognitive impairment of uncertain or unknown etiology: PLAN: Scored 40 out of a possible 50 on the BCAT. PLAN: Plan PLAN PT for gait stability OT for ADL's ST for evaluation Analgesics as needed Bowel protocol Fall precautions Assess for Anxiety/Depression GI prophylaxis -famotidine. Increased from 20 mg once daily to 20 mg twice daily because we are starting Fosamax for treatment of severe osteoporosis. Will have her follow-up with Dr. Kendell Liang postdischarge to manage osteoporosis. DVT prophylaxis with Lovenox 30 mg every 12 hours. Continue to hold Xarelto dueto subdural hematoma. Follow up with neurosurgery, PCP, Dr. Kendell Liang for osteoporosis, cardiology and pain management following DC from IP Rehab AM lab including CMP, CBC, Mag and Phos-all personally reviewed Consult Dr. Plasencia for suspected infected hematoma involving the right knee Consult Dr. Hall for assistance with pain management Start Fosamax 10 mg p.o. every morning and if she tolerates this with no exacerbation of GERD will transition to 70 mg once a week Recommend follow-up with Dr. Kendell Liang postdischarge for treatment of severe osteoporosis Continue vitamin D supplement and check a vitamin D level today. Start Keflex 500 mg p.o. 3 times daily 90 Minutes spent reviewing past diagnostic tests, lab results, vital sign trends, medical history, medications, all additional paperwork sent by the previous hospital, and ordering medications, examining the the patient and completing documentation. Charges/Coding Visit Charges Inpatient E&M: 84890 Init Hosp L3 05/01/25 1558 Cosigner Signature (if applicable): CC: Dr. Daniel Hall MD; Dr. Mike Malagon MD; Dr. Keerthi Son DO;Dr. Marty Guthrie MD~ Signed [facility]09-11-2025 Telephone encounter Note* Telephone Encounter - Nabeel Payton - 05/01/2025 2:54 PM EDT Reached out to pt, no answer. not set up, [id number] Miscellaneous Notes* Telephone Encounter - Nabeel Payton - 05/01/2025 2:54 PM EDT Reached out to pt, no answer. not set up, cannot LMTCO * Telephone Encounter - Pasclae Carvajal MA - 04/29/2025 1:23 PM EDT Pt will be new to the office. * Telephone Encounter - Allegra Valles RN - 04/29/2025 8:12 AM EDT Patient currently admitted. * Telephone Encounter - Allegra Shi RN - 04/28/2025 8:20 AM EDT Currently admitted * Telephone Encounter - Alicia Arredondo DO - 04/25/2025 4:01 PM EDT Seen inpatient for hematuria. Had CTU. Needs outpatient cysto. Thanks! documented in this [facility]09-10-2025 Consult note Author Triny Todd [facility] Note Date/Time April 30, 2025 4:03pm [facility] Medical Records Department [address] [place] [address] Consultation - Surgical 04/30/25 1504 MR#: [id number] Acct: [id number] Name: LESLI ROSALES Rep #:[id number] : 1940 85 From: Perez COLEMAN PCP: Dr. Marty Guthrie MD Status:ADM I N Location: [place] [address]-1 ADDENDUM by VIRGINIA Khan on 04/30/25 at 1602 Addendum Twice daily packing and dressing changes. Strike wet to dry dressing. 04/30/25 1602<Electronically signed by Perez COLEMAN> Cosigner Signature (if applicable): cc: Dr. Marty Guthrie MD ~* Signed Assessment & Plan Assessment/Plan (1) Traumatic hematoma of right knee: PLAN: Bedside right knee hematoma I&D was performed by Dr. Plasencia today. Right knee cellulitis and septic joint is also in the differential however less likelygiven her exam. - Twice daily wet to dry dressing - Recommend 7 day course of oral Keflex - Continue to monitor for sign of knee infection. - Plastics will follow. HPI Consult Data Date of Consult: 04/30/25 HPI Narrative HPI Narrative: LESLI ROSALES, is a 85 F with PMH significant for osteoporosis, atrial fibrillation on Xarelto, CHF, COPD, chronic pain syndrome who had a dizzy episode at home and fell forward with outstretched hand and hit the side of her head on the coffee table on 04/22/25. Work up demonstrated 6mm SDH, she was reversed with Kcentra and Xarelto held. She was also noted to have multiple rib fractures, new vs chronic spine fractures. She was also noted to have right kneeswelling, bruising and eschar. She complains mostly of left shoulder pain which was negative for acute bony injuries. Right knee xray was negative for bony injuries as well. Left hand xray showed possible nondisplaced fracture however orthopedics at the outside facility assessed and did not think she had one plus she does not endorse any left hand/wrist pain. Since her arrival to our rehab facility she has been ambulating with walker without major significant pain withwalking on it. She denies fever, chills, drainage, numbness, tingling. She does not have history or right knee surgeries. [facility] Medical History Low bone density Arthritis of left hip Compression fracture of L3 vertebra Osteopenia determined by x-ray Burst fracture of lumbar vertebra Compression fracture of L2 Abnormal finding on urinalysis Intractable back pain Leukocytosis Acute cystitis with hematuria Overweight (BMI 25.0-29.9) Chronic anticoagulation Paroxysmal atrial fibrillation Ambulatory dysfunction Generalized weakness Unable to care for self Inability to perform activities of daily living Closed compression fracture of lumbosacral spine Back pain Anxiety Depression Chronic pain GERD (gastroesophageal reflux disease) On home oxygen therapy Atrial fibrillation Congestive heart failure (CHF) Hypertension Shingles Psoriatic arthritis COPD (chronic obstructive pulmonary disease) A-fib Home Medications ?Medication ?Instructions ?Recorded ?Last Taken ?Type atenolol 25 mg tablet 25 mg PO DAILY Atrial fibril lation 06/26/21 12/30/24 History famotidine 20 mg tablet 20 mg PO DAILY reflux 04/29/25 History folic acid 1 mg tablet 1 mg PO DAILY supplement 02/0812/24/24 History rivaroxaban 20 mg tablet (Xarelto) 20 mg PO DAILY AFIB 06/26/21 12/24/24 History Held on 04/29/25. Instructions: Ordered cholecalciferol (vitamin D3) 50 50 mcg PO DAILY supple ment 11/17/24 12/24/24 History mcg (2,000 unit) capsule albuterol sulfate 90 mcg/actuation 2 puff inhalation Q 6H PRN dyspnea 11/18/24 Unknown History aerosol inhaler tiotropium bromide 18 mcg capsule 1 cap inhalation RUTH LY PRN 11/18/24 12/24/24 History with inhalation device (Spiriva shortness of breath with HandiHaler) risankizumab-rzaa 150 mg/mL 150 mg subcut Q90D . 12/2412/18/24 History subcutaneous pen injector (Marisaaugustinaizi) Held on 04/29/25. Instructions: pt family to bring lidocaine 5 % topical patch 2 patch topical DAILY pain #60 ea 01/01/25 Unknown Rx baclofen 5 mg tablet 5 mg PO QHS pain 04/22/25 History oxycodone-acetaminophen 5 mg-325 1 tab PO TID pain 10/15 Unknown History mg tablet Held on 04/29/25. Instructions: Ordered acetaminophen 500 mg tablet 1,000 mg PO Q8 pain 04/29/25 History empagliflozin 10 mg tablet 10 mg PO DAILY glucose 05/15 Unknown History (Jardiance) enoxaparin 30 mg/0.3 mL 30 mg subcut Q12H dvt 04/29/25 History subcutaneous syringe (Lovenox) furosemide 20 mg tablet (Lasix) 20 mg PO DAILY PRN ruthie ght gain 04/29/25 Unknown History gabapentin 100 mg capsule 100 mg PO Q12H nerve pain 04/29/25 History ipratropium 0.5 mg-albuterol 3 mg 3 ml inhalation Q2H PRN shortness 04/29/25 Unknown History (2.5 mg base)/3 mL nebulization of breath or wheezing soln ipratropium bromide 0.02 % 1.25 ml inhalation Q6H PRN wheezing 04/29/25 Unknown History solution for inhalation melatonin 3 mg capsule 3 mg PO QHS sleep 04/29/25 U nknown History mometasone-formoterol HFA 100 2 inh inhalation BID sob 04/29/25 Unknown History mcg-5 mcg/actuation aerosol inhaler (Dulera) ondansetron 4 mg disintegrating 8 mg PO Q8H PRN nausea and vomiting 04/29/25 Unknown History tablet oxycodone 5 mg tablet 5 mg PO Q4H PRN Pain Score1- 10 04/29/25 04/29/25 History buprenorphine 5 mcg/hour weekly 1 patch transdermal Q7 D blood 04/30/25 04/24/25 History transdermal patch (Butrans) pressure Allergy/AdvReac Type Severity Reaction Status Date / Time No Known Allergies Allergy Verified 04/22/25 18:40 Family History unable to obtain Surgical History Status post kyphoplasty History of partial hysterectomy History of bladder suspension procedure History of appendectomy History of cholecystectomy H/O hernia repair Social History household members: children and none housing: house Smoking Status: Former smoker substance use type: does not use ROS ROS Narrative General: Denies fever, chills HEENT: Denies headaches, vision changes, sore throat Cardio: Denies chest pain, leg edema Pulmonary: Denies shortness of pain, cough, wheezing GI: Denies nausea, vomiting, diarrhea Physical Exam Narrative Afebrile/VSS. Sitting in chair with left shoulder sling, Nasal cannula on. In noacute distress Ecchymosis noted on right side of her face, bilateral arms and hands Right lower extremity: Inspection: Ecchymosis and edema with 4cm by 2.5cm patellar eschar. No drainage,induration or ascending redness noted. Palpation: No increased warmth, tender to touch over the hematoma and surrounding eschar. No significant pain with passive or active knee range of motion. No lateral or posterior knee tenderness to palpation. Motor: Flexes and extends leg easily Sensation: Sensation intact to light touch Vascular: Leg is warm, dry, well perfused. After risks, benefits were discussed informed consent was obtained for incision and drainage or right knee hematoma. Dr. Plasencia administed 20cc of local anesthesia surrounding the eschar and using sterile forceps and scissors he removed the eschar. 50cc of clotted red serosanguimeous hematoma was evacuated and irritated throughouly with sterile saline solution and packed with sterile gauze and dressing. Lab / Micro Data 04/30/25 07:35 04/30/25 07:35 Labs: Laboratory Results - last 24 hr 04/30/25 07:35: WBC 8.1, RBC 4.28, Hgb 13.9, Hct 44.9, MCV 104.9 H, MCH 32.5 H, MCHC 31.0 L, RDW Std Deviation 55.5 H, RDW Coeff of Mildred 14.3, Plt Count 215, MPV10.5, Immature Gran % (Auto) 0.700, Neut % (Auto) 64.6, Lymph % (Auto) 23.4, Sauk % (Auto) 7.5, Eos % (Auto) 3.1, Baso % (Auto) 0.7, Absolute Neuts (auto) 5.2, Absolute Lymphs (auto) 1.90, Nucleated RBC % 0, Sodium 142, Potassium 3.8, Chloride 103, Carbon Dioxide 31.1, Anion Gap 8, BUN 20 H, Creatinine 0.38 L, Estim Creat Clear Calc 42.95 L, Est GFR (MDRD) Non-Af 99, BUN/Creatinine Ratio 51.2 H, Glucose 119 H, Hemoglobin A1c 5.1, Calcium 9.6, Phosphorus 3.5, Magnesium 2.1, Total Bilirubin 1.09, Direct Bilirubin 0.43 H, AST 32, ALT 14, Alkaline Phosphatase 118 H, Total Protein 6.3, Albumin 3.2 L, Globulin 3.1, Vitamin D 25-Hydroxy 27.6 L Imaging PROCEDURE: RIGHT KNEE 4 OR MORE VIEWS 04/22/2025 REASON FOR EXAM: PRACHI HAYES TECHNIQUE: Procedure Code: RADKN Modality: DX Procedure: KNEE 4 OR MORE VIEWS Laterality: Right COMPARISON: None. FINDINGS: No acute fracture or dislocation. Alignment is anatomic. Relatively well preserved joint spaces. No joint effusion. Qualitative osteopenia. Mild enthesopathic spurring of the superior patellar pole. Prominent prepatellar soft tissue swelling/contusion. Atherosclerotic vascular calcifications. RAD/Knee 4 or More Views IMPRESSION: No acute fracture or dislocation. Prominent prepatellar soft tissue swelling. Reading Location: [id number] Charges/Coding Visit Charges Office Visits / Consults: 55908 OV L2 New 15min 04/30/25 0659 <Electronically signed by Perez COLEMAN> Cosigner Signature (if applicable): CC: Dr. Marty Guthrie MD~ Signed [facility] Work Phone: [phone] 667-501809-10-2025 History and physical note Author Keerthi Cagleherminia [facility] Note Date/Time April 30, 2025 3:19pm [facility] Medical Records Department [address] [place] [address] Post Admission Physician Papito 04/30/25 1507 MR#: [id number] Acct: [id number] Name: LESLI ROSALES Rep #:[id number] : 1940 85 From: Keerthi Son DO PCP: Dr. Marty Guthrie MD Status:ADM I N Location: [place] [address] Admission Information Primary Diagnosis:: Debility due to trauma from a fall with multiple fractures. Status Changes from Prescreening?: No changes Identified Actual Problem List:: Infection, Falls, Skin Intergrity, Pain, ALteration in Cmfrt, Alteration in Sleep, Mobility Impaired, Self Care Deficit, Fluid Change- Dehydration and Alteration-Leisure Activ. Potential Problem List:: DVT, Bleeding, Infection, UTI, Aspiration, Falls, Skin Integrity and Depression Risk of Complications DVT: LMWH (Lovenox 30 mg SQ every 12 hours), BERTA Hose and - (Continue to hold Xarelto because of subdural hematoma. ) Bleeding: Monitor Lab Values, Nursing to Teach Precautions for anti-coagulation therapy., Wound, if applicable, to be assessed every shift. and Stroke patients assessed for lethargy or change in status. Infection: Clinical Staff to Monitor for S/S of infection: and S/S of infection include fever, redness, warmth, etc. Urinary Tract Infection: Monitor for frequency, burning, discomfort, or incontinence. and Nursing will obtain urine sample for urinalysis and C&S when ordered. Aspiration: Clinical staff will monitor for coughing, drooling, congestion., Speech will evaluate swallowing and dsyphasia. and Nursing will monitor patient swallowing during meals. Falls: Patient will be evaluated for Fall Precautions and Patient will be placedon Fall Precautions as indicated per protocol. Skin Breakdown: Nursing will assess skin daily using assessment tool. and Nursing will place on Skin Breakdown Precautions as indicated. Pain: Clinical staff will assess patient's pain level per protocol., Medicationswill be given, if needed, and the pain level reassessed. and Other methods: Massage, distraction, decrease stimulus, etc. used PRN. Plan of Care Patient requires physician specializing in physical medicine and rehab oversightto provide close medical supervision of rehab issues including: Pain Management,Sleep Problems, Bowel and Bladder, Medical and co-morbidity Management, DVT prophylaxis, Rehabilitation Leadership and Coordination of treatment team Patient needs Physical Therapy: For a minimum of 1 hour and At least 5 out of 7 days Patient needs Physical Therapy to improve:: Mobility, Strengthening, Transfers, Stretching, ROM, Endurance, Stairs, Gait and Balance Patient needs Occupational Therapy: For a minimum of 1 hour and At least 5 out of 7 days Patient needs Occupational Therapy to improve ADL's incl.: Eating, Grooming, Bathing, Dressing, Toileting, Toilet transfers, Community Reintegration, Higher functioning activities, Household tasks, Adaptive Equipment, Splinting and Otheractivities as determined Patient requires speech therapy: For a minimum of 1 hour, At least 5 out of 7 days and - (reported trouble swallowing........ST ordered......I do not know if they will need to pick her up for therapy.) Patient requires speech therapy for: Swallowing, Cognition, Language Skills and Compensatory Strategies Patient requires 24/ Rehabilitation Nursing for: Pain Issues, Identifying and preventing risk factors, Monitoring and reporting current medical conditions, Assisting with ambulation, transfer, and all ADL's, Teaching patients about disease process and medications, Family teaching, Providing safe environment, Bowel and Bladder Issues, Skin integrity and Medication Management Patient needs Sumo Wrestler/ Case Management for: Discharge Planning, Arranging Home Equipment or Services and Family Interventions Patient needs Dietary and Nutrition Services for: Adequate Nutrition, Nutritional Supplements and Nutritional Education Goals Goals Patient will remain: free from falls Patient will perform eating at: MOD I level of assist. Patient will perform bed mobility at: MOD I level of assist. Patient will complete transfers from bed to chair at: Standby Assist. Patient will ambulate: - (150 feet with a wheeled walker at standby assist on various surfaces) Patient will complete upper body dressing at: - (Set up) Patient will complete lower body dressing at: - (Supervision with adaptive equipment as needed.) Patient will complete toilet transfer at: - (Supervision) Patient will complete toileting at: - (Supervision) Patient will perform bathing at: - (Upper body bathing at supervision and lower body bathing is supervision with adaptive equipment as needed) Patient will perform Tub/Shower transfer at: - (Supervision with DME as needed) Patient will complete grooming at: - (Supervision while standing at the sink) Patient will achieve: - (1 curb step with a wheeled walker at contact-guard assist and 4 standard steps with 2 handrails at contact-guard assist to allow access to her home entrance.) Patient will have pain level of: of 3 or less Patient's skin will: remain intact Patient will receive: adequate nutrition. Discharge Planning Pt Prognosis for Sig. Practical Improv. w/in Reasonable Time: Good Estimated Length of stay (days): 21 Anticipated D/C Destination: TBD Was Preadmission Assessment Accurate?: Yes 04/30/25 1519 <Electronically signed by Keerthi Son DO> Cosigner Signature (if applicable): CC: ~ Signed [facility] Work Phone: [phone] Consult note [facility] Medical Records Department [address] [place] [address] Consultation - Surgical 04/30/25 1504 MR#: [id number] Acct: [id number] Name: LESLI ROSALES Rep #:[id number] : 1940 85 From: Perez COLEMAN PCP: Dr. Marty Guthrie MD Status:ADM I N Location: [place] [address] ADDENDUM by VIRGINIA Khan on 04/30/25 at 1602 Addendum Twice daily packing and dressing changes. Strike wet to dry dressing. 04/30/25 1602 Cosigner Signature (if applicable): cc: Dr. Marty Guthrie MD ~* Signed Assessment & Plan Assessment/Plan (1) Traumatic hematoma of right knee: PLAN: Bedside right knee hematoma I&D was performed by Dr. Plasencia today. Right knee cellulitis and septic joint is also in the differential however less likelygiven her exam. - Twice daily wet to dry dressing - Recommend 7 day course of oral Keflex - Continue to monitor for sign of knee infection. - Plastics will follow. HPI Consult Data Date of Consult: 04/30/25 HPI Narrative HPI Narrative: LESLI ROSALES, is a 85 F with PMH significant for osteoporosis, atrial fibrillation on Xarelto,CHF, COPD, chronic pain syndrome who had a dizzy episode at home and fell forward with outstretchedhand and hit the side of her head on the coffee table on 04/22/25. Work up demonstrated 6mm SDH, she was reversed with Kcentra and Xarelto held. She was also noted to have multiple rib fractures, new vs chronic spine fractures. She was also noted to have right kneeswelling, bruising and eschar. She complains mostly of left shoulder pain which was negative for acute bony injuries. Right knee xray was negative for bony injuries as well. Left hand xray showed possible nondisplaced fracture however or thopedics at the outside facility assessed and did not think she had one plus she does not endorse any left hand/wrist pain. Since her arrival to our rehab facility she has been ambulating with walker without major significant pain withwalking on it. She denies fever, chills, drainage, numbness, tingling. She does not have history or right knee surgeries. [facility]LY [facility] Medical History Low bone density Arthritis of left hip Compression fracture of L3 vertebra Osteopenia determined by x-ray Burst fracture of lumbar vertebra Compression fracture of L2 Abnormal finding on urinalysis Intractable back pain Leukocytosis Acute cystitis with hematuria Overweight (BMI 25.0-29.9) Chronic anticoagulation Paroxysmal atrial fibrillation Ambulatory dysfunction Generalized weakness Unable to care for self Inability to perform activities of daily living Closed compression fracture of lumbosacral spine Back pain Anxiety Depression Chronic pain GERD (gastroesophageal reflux disease) On home oxygen therapy Atrial fibrillation Congestive heart failure (CHF) Hypertension Shingles Psoriatic arthritis COPD (chronic obstructive pulmonary disease) A-fib Home Medications ?Medication ?Instructions ?Recorded ?Last Taken ?Type atenolol 25 mg tablet 25 mg PO DAILY Atrial fibril lation 06/26/21 12/30/24 History famotidine 20 mg tablet 20 mg PO DAILY reflux 04/29/25 History folic acid 1 mg tablet 1 mg PO DAILY supplement 02/0812/24/24 History rivaroxaban 20 mg tablet (Xarelto) 20 mg PO DAILY AFIB 06/26/21 12/24/24 History Held on 04/29/25. Instructions: Ordered cholecalciferol (vitamin D3) 50 50 mcg PO DAILY supple ment 11/17/24 12/24/24 History mcg (2,000 unit) capsule albuterol sulfate 90 mcg/actuation 2 puff inhalation Q 6H PRN dyspnea 11/18/24 Unknown History aerosol inhaler tiotropium bromide 18 mcg capsule 1 cap inhalation RUTH LY PRN 11/18/24 12/24/24 History with inhalation device (Spiriva shortness of breath with HandiHaler) risankizumab-rzaa 150 mg/mL 150 mg subcut Q90D . 12/2412/18/24 History subcutaneous pen injector (Skyrizi) Held on 04/29/25. Instructions: pt family to bring lidocaine 5 % topical patch 2 patch topical DAILY pain #60 ea 01/01/25 Unknown Rx baclofen 5 mg tablet 5 mg PO QHS pain 04/22/25 History oxycodone-acetaminophen 5 mg-325 1 tab PO TID pain 10/15 Unknown History mg tablet Held on 04/29/25. Instructions: Ordered acetaminophen 500 mg tablet 1,000 mg PO Q8 pain 04/29/25 History empagliflozin 10 mg tablet 10 mg PO DAILY glucose 05/15 Unknown History (Jardiance) enoxaparin 30 mg/0.3 mL 30 mg subcut Q12H dvt 04/29/25 History subcutaneous syringe (Lovenox) furosemide 20 mg tablet (Lasix) 20 mg PO DAILY PRN ruthie ght gain 04/29/25 Unknown History gabapentin 100 mg capsule 100 mg PO Q12H nerve pain 04/29/25 History ipratropium 0.5 mg-albuterol 3 mg 3 ml inhalation Q2H PRN shortness 04/29/25 Unknown History (2.5 mg base)/3 mL nebulization of breath or wheezing soln ipratropium bromide 0.02 % 1.25 ml inhalation Q6H PRN wheezing 04/29/25 Unknown History solution for inhalation melatonin 3 mg capsule 3 mg PO QHS sleep 04/29/25 U nknown History mometasone-formoterol HFA 100 2 inh inhalation BID sob 04/29/25 Unknown History mcg-5 mcg/actuation aerosol inhaler (Dulera) ondansetron 4 mg disintegrating 8 mg PO Q8H PRN nausea and vomiting 04/29/25 Unknown History tablet oxycodone 5 mg tablet 5 mg PO Q4H PRN Pain Score1- 10 04/29/25 04/29/25 History buprenorphine 5 mcg/hour weekly 1 patch transdermal Q7 D blood 04/30/25 04/24/25 History transdermal patch (Butrans) pressure Allergy/AdvReac Type Severity Reaction Status Date / Time No Known Allergies Allergy Verified 04/22/25 18:40 Family History unable to obtain Surgical History Status post kyphoplasty History of partial hysterectomy History of bladder suspension procedure History of appendectomy History of cholecystectomy H/O hernia repair Social History household members: children and none housing: house Smoking Status: Former smoker substance use type: does not use ROS ROS Narrative General: Denies fever, chills HEENT: Denies headaches, vision changes, sore throat Cardio: Denies chest pain, leg edema Pulmonary: Denies shortness of pain, cough, wheezing GI: Denies nausea, vomiting, diarrhea Physical Exam Narrative Afebrile/VSS. Sitting in chair with left shoulder sling, Nasal cannula on. In noacute distress Ecchymosis noted on right side of her face, bilateral arms and hands Right lower extremity: Inspection: Ecchymosis and edema with 4cm by 2.5cm patellar eschar. No drainage,induration or ascending redness noted. Palpation: No increased warmth, tender to touch over the hematoma and surrounding eschar. No significant pain with passive or active knee range of motion. No lateral or posterior knee tenderness to palpation. Motor: Flexes and extends leg easily Sensation: Sensation intact to light touch Vascular: Leg is warm, dry, well perfused. After risks, benefits were discussed informed consent was obtained for incision and drainage or right knee hematoma. Dr. Plasencia administed 20cc of local anesthesia surrounding the eschar and using sterile forceps and scissors he removed the eschar. 50cc of clotted red serosanguimeous hematoma was evacuated and irritated throughouly with sterile saline solution and packed with sterile gauze and dressing. Lab / Micro Data 04/30/25 07:35 04/30/25 07:35 Labs: Laboratory Results - last 24 hr 04/30/25 07:35: WBC 8.1, RBC 4.28, Hgb 13.9, Hct 44.9, MCV 104.9 H, MCH 32.5 H, MCHC 31.0 L, RDW Std Deviation 55.5 H, RDW Coeff of Mildred 14.3, Plt Count 215, MPV10.5, Immature Gran % (Auto) 0.700, Neut % (Auto) 64.6, Lymph % (Auto) 23.4, [place] % (Auto) 7.5, Eos % (Auto) 3.1, Baso % (Auto) 0.7, Absolute Neuts (auto) 5.2, Absolute Lymphs (auto) 1.90, Nucleated RBC % 0, Sodium 142, Potassium 3.8, Chloride 103, Carbon Dioxide 31.1, Anion Gap 8, BUN 20 H, Creatinine 0.38 L, Estim Creat Clear Calc 42.95 L, Est GFR (MDRD) Non-Af 99, BUN/Creatinine Ratio 51.2 H, Glucose 119 H, Hemoglobin A1c 5.1, Calcium 9.6, Phosphorus 3.5, Magnesium 2.1, Total Bilirubin 1.09, Direct Bilirubin 0.43 H, AST 32, ALT 14, Alkaline Phosphatase 118 H, Total Protein 6.3, Albumin 3.2 L, Globulin 3.1, Vitamin D 25-Hydroxy 27.6 L Imaging PROCEDURE: RIGHT KNEE 4 OR MORE VIEWS 04/22/2025 REASON FOR EXAM: PRACHI HAYES TECHNIQUE: Procedure Code: RADKN Modality: DX Procedure: KNEE 4 OR MORE VIEWS Laterality: Right COMPARISON: None. FINDINGS: No acute fracture or dislocation. Alignment is anatomic. Relatively well preserved joint spaces. Nojoint effusion. Qualitative osteopenia. Mild enthesopathic spurring of the superior patellar pole. Prominent prepatellar soft tissue swelling/contusion. Atherosclerotic vascular calcifications. RAD/Knee 4 or More Views IMPRESSION: No acute fracture or dislocation. Prominent prepatellar soft tissue swelling. Reading Location: [id number] Charges/Coding Visit Charges Office Visits / Consults: 17539 OV L2 New 15min 04/30/25 1559 Cosigner Signature (if applicable): CC: Dr. Marty Guthrie MD~ Signed [facility]09-10-2025 History and physical note [facility] Medical Records Department [address] [place] [id number] Post Admission Physician Papito 04/30/25 1507 MR#: [id number] Acct: [id number] Name: LESLI ROSALES Rep #:[id number] : 1940 85 From: Keerthi Son DO PCP: Dr. Marty Guthrie MD Status:ADM I N Location: [place] [address] Admission Information Primary Diagnosis:: Debility due to trauma from a fall with multiple fractures. Status Changes from Prescreening?: No changes Identified Actual Problem List:: Infection, Falls, Skin Intergrity, Pain, ALteration in Cmfrt, Alteration in Sleep, Mobility Impaired, Self Care Deficit, Fluid Change- Dehydration and Alteration-Leisure Activ. Potential Problem List:: DVT, Bleeding, Infection, UTI, Aspiration, Falls, Skin Integrity and Depression Risk of Complications DVT: LMWH (Lovenox 30 mg SQ every 12 hours), BERTA Hose and - (Continue to hold Xarelto because of subdural hematoma. ) Bleeding: Monitor Lab Values, Nursing to Teach Precautions for anti-coagulation therapy., Wound, ifapplicable, to be assessed every shift. and Stroke patients assessed for lethargy or change in status. Infection: Clinical Staff to Monitor for S/S of infection: and S/S of infection include fever, redness, warmth, etc. Urinary Tract Infection: Monitor for frequency, burning, discomfort, or incontinence. and Nursing will obtain urine sample for urinalysis and C&S when ordered. Aspiration: Clinical staff will monitor for coughing, drooling, congestion., Speech will evaluate swallowing and dsyphasia. and Nursing will monitor patient swallowing during meals. Falls: Patient will be evaluated for Fall Precautions and Patient will be placedon Fall Precautionsas indicated per protocol. Skin Breakdown: Nursing will assess skin daily using assessment tool. and Nursing will place on Skin Breakdown Precautions as indicated. Pain: Clinical staff will assess patient's pain level per protocol., Medicationswill be given, if needed, and the pain level reassessed. and Other methods: Massage, distraction, decrease stimulus, etc. used PRN. Plan of Care Patient requires physician specializing in physical medicine and rehab oversightto provide close medical supervision of rehab issues including: Pain Management,Sleep Problems, Bowel and Bladder, Medical and co-morbidity Management, DVT prophylaxis, Rehabilitation Leadership and Coordination of treat ment team Patient needs Physical Therapy: For a minimum of 1 hour and At least 5 out of 7 days Patient needs Physical Therapy to improve:: Mobility, Strengthening, Transfers, Stretching, ROM, Endurance, Stairs, Gait and Balance Patient needs Occupational Therapy: For a minimum of 1 hour and At least 5 out of 7 days Patient needs Occupational Therapy to improve ADL's incl.: Eating, Grooming, Bathing, Dressing, Toileting, Toilet transfers, Community Reintegration, Higher functioning activities, Household tasks, Adaptive Equipment, Splinting and Otheractivities as determined Patient requires speech therapy: For a minimum of 1 hour, At least 5 out of 7 days and - (reported trouble swallowing........ST ordered......I do not know if they will need to pick her up for therapy.) Patient requires speech therapy for: Swallowing, Cognition, Language Skills and Compensatory Strategies Patient requires 24/ Rehabilitation Nursing for: Pain Issues, Identifying and preventing risk factors, Monitoring and reporting current medical conditions, Assisting with ambulation, transfer, and all ADL's, Teaching patients about disease process and medications, Family teaching, Providing safe environment, Bowel and Bladder Issues, Skin integrity and Medication Management Patient needs Sumo Wrestler/ Case Management for: Discharge Planning, Arranging Home Equipment orServices and Family Interventions Patient needs Dietary and Nutrition Services for: Adequate Nutrition, Nutritional Supplements and Nutritional Education Goals Goals Patient will remain: free from falls Patient will perform eating at: MOD I level of assist. Patient will perform bed mobility at: MOD I level of assist. Patient will complete transfers from bed to chair at: Standby Assist. Patient will ambulate: - (150 feet with a wheeled walker at standby assist on various surfaces) Patient will complete upper body dressing at: - (Set up) Patient will complete lower body dressing at: - (Supervision with adaptive equipment as needed.) Patient will complete toilet transfer at: - (Supervision) Patient will complete toileting at: - (Supervision) Patient will perform bathing at: - (Upper body bathing at supervision and lower body bathing is supervision with adaptive equipment as needed) Patient will perform Tub/Shower transfer at: - (Supervision with DME as needed) Patient will complete grooming at: - (Supervision while standing at the sink) Patient will achieve: - (1 curb step with a wheeled walker at contact-guard assist and 4 standard steps with 2 handrails at contact-guard assist to allow access to her home entrance.) Patient will have pain level of: of 3 or less Patient's skin will: remain intact Patient will receive: adequate nutrition. Discharge Planning Pt Prognosis for Sig. Practical Improv. w/in Reasonable Time: Good Estimated Length of stay (days): 21 Anticipated D/C Destination: TBD Was Preadmission Assessment Accurate?: Yes 04/30/25 1094 Cosigner Signature (if applicable): CC: ~ Signed [facility]09-10-2025 [facility]09-09-2025 Nurse Note* Nati Gordon RN - 04/29/2025 3:09 PM EDT [facility] No further questions. [facility] 1530[id number]* Nati Gordon RN - 04/29/2025 3:09 PM EDT Report called to [facility]. No further questions. Patient transport set up for 1530. * Lavern Steele RN - 04/29/2025 8:31 AM EDT Wound Care consulted for Pressure Injury Prevention. Pt's Hema score= 16 on 04/29 Pt's pressure points assessed. Pt turned with max assist of 1 (this RN) for posterior assessment. Pt's Heels, Buttocks/coccyx, Back, Elbows, Occiput and ears all intact. Bruising and swelling noted to right knee. [place] and blanchable tissues noted to bilateral heels. Blanchable erythema noted to coccyx. Skin tear noted to right lower back, pt states this area is from scratching. Female external catheter in place. Skin intact to medial thighs and labia. Pt incontinent of large amount of urine. Pads changed, incontinence care provided, sacral foam applied. Pt pulled up in bed using glide sheet and repositioned onto right side using pillows at end of visit with assist from this RN and professional nursing assistant. Instructed pt on pressure injury prevention and importance of turning/postioning every 2hrs while in bed and every 15 min while sitting in chair. Instructed on use and care of waffle chair cushion. Verbalized understanding. Prevention Measures in place, including: Valentines sheet with pillows/wedges, Foam heel protectors (obtained and applied), Heels elevated off bed on pillows, Sacral foam (obtained and applied), Zinc/Moisture Barrier ointment (obtained), Waffle chair cushion (obtained for pt). Skin Care precaution orderset in place. Dietitian civil drafting technician involved. PT/OT consult in place. D/W nursing staff. Will continue to follow pt. Please Vocera for any questions or concerns. Lavern Steele RN * Ana Wynne RN - 04/26/2025 10:00 PM EDT Bed bath performed by [facility], linens changed, lotion applied to patient's skin after. Patient very happy. Call light within reach. documented in this [facility]09-09-2025 Miscellaneous Notes* Care Coordination - Unknown Case Management - 04/29/2025 2:41 PM EDT Patient Choice Patient Name: LESLI ROSALES Date of : 1940 All Providers Sent Referral Name: [facility]hab Address: [address] [place] [address] * Care Coordination - Rebekah Escalona RN - 04/29/2025 12:38 PM EDT Care Management Progress Note Short Medical why still here: Pt on 3W s/p fall SDH L 3-7 rib fxs. L wrist fx, R knee hta. Planned Discharge Disposition: Inpatient Rehab Facility ([facility]) Barriers/Today we still Wait: Other (comment) (pt approved, transportation confirmed for 330 pm with Juan M Christensen. nurse and son notified.) Length of Stay (Days): 7 GMLOS: 3 * Care Coordination - Rebekah Escalona RN - 04/28/2025 11:15 AM EDT Care Management Progress Note Short Medical why still here: Pt on 3W s/p fall SDH L 3-7 rib fxs. L wrist fx, R knee hta. Planned Discharge Disposition: Inpatient Rehab Facility ([facility]) can accept pt, still on IV pain meds will follow up on Monday. Barriers/Today we still Wait: Facility pre-cert (need updated notes from PT/OT to start precert) Length of Stay (Days): 6 GMLOS: 3 * Care Coordination - Rebekah Escalona RN - 04/25/2025 11:41 AM EDT Care Management Progress Note Short Medical why still here: Pt on 3W s/p fall SDH L 3-7 rib fxs. L wrist fx, R knee hta. Planned Discharge Disposition: Inpatient Rehab Facility ([facility]) can accept pt, still on IV pain meds will follow up on Monday. Barriers/Today we still Wait: Administering IV medications, Clinical stability (pain control) Length of Stay (Days): 3 GMLOS: No GMLOS Documented * Care Coordination - Rebekah Escalona RN - 04/24/2025 10:54 AM EDT Care Management Progress Note Short Medical why still here: Pt on 3W s/p fall SDH L 3-7 rib fxs. L wrist fx, R knee hta. Planned Discharge Disposition: Inpatient Rehab Facility ([facility]) Pt agreeable to IPR, discussed LOS and therapy requirements. Barriers/Today we still Wait: Administering IV medications, Facility pre-cert, Clinical stability (pain control) Length of Stay (Days): 2 GMLOS: No GMLOS Documented * Care Coordination - Rebekah Escalona RN - 04/23/2025 12:21 PM EDT Care Managment Initial Assessment Date: 04/23/2025 Patient Name: Lesli Rosales : 1940 Patient Information Source of Information: Patient Cognition/Language: WFL - Within Functional Limits Permission given to speak with patient payable representative/caregiver as indicated: Yes Confirmation of Payer with patient/family: Yes Payer Name: [facility] medicare : No Confirmation of Primary Care Physician: Confirmed PCP Name: Marty Guthrie MD Seen in last 2 years?: Yes Primary Caregiver: Self If assistance needed, confirmed caregiver ready, willing and able to care for patient at discharge:Yes Confirmed with: Lesli Living Arrangements Current Residence: Private Residence Number of Floors 1 Number of Entry Steps: 4 Bed/Bath Levels: Both first floor Facility: Facility Name: Plan to Return: Lives with: Children Support Systems: Children, Family members Activities of Daily Living Ambulation: Assistance (walker) Bathing/Dressing: Independent Elimination/Continence/Toileting: Independent Feeding: Independent Who Assists with Activities of Daily Living: Lesli Instrumental Activities of Daily Living Prescription Coverage: Yes Pharmacy Used: [facility] Medication Management: Independent Transportation/Shopping: Independent Transportation Mode: Car (pt doesn't drive) Needs Assistance with Transportation at Discharge: No Meal Preparation: Independent Laundry/Cleaning: Independent Finances/Bill Paying: Independent Communication: Independent Types of Care Services/Equipment Utilized Care Services: Dialysis Type: Durable Medical Equipment: Walker, Oxygen (Continuous or prn) Oxygen Flow Rate: 2L DME Provider: pt unsure Patient's Goal/Discharge Plan Patient expects to be discharged to: home Discharge Planning Actions: Continue to follow Patient's Choice Rights and [employer] and Collaborative Relationships Disclosed as Indicated for Post-Acute Care: Interdisciplinary Team Engagement: PT/OT, Palliative Care, Geriatric Assessment Social Work Referral for: Additional Information: Pt admitted s/p fall SDH L 3-7 rib fxs. L wrist fx, R knee hta. Introduced myself and role. Pt lives with son and has a good support system. PT/OT is pending. Plan for rib block today. * Home Care - Gianni Suarez RN - 04/23/2025 9:19 AM EDT Patient is currently active with [facility]. The patients current certification period will on 05/02/25. The patient is currently receiving SN/PT/OT/GEAR REPAIR SUPERVISOR services through the agency. Cut Out Stitcher to continue to follow. documented in this [facility]09-09-2025 Progress note* Care Coordination - Unknown Case Management - 04/29/2025 2:41 PM EDT Patient Choice Patient Name: LESLI ROSALES Date of : 1940 All Providers Sent Referral Name: [facility] Address: [address] [place] [address] [facility] [id number] Note Attestation signed by Ronald Caldwell MD at 05/04/2025 3:45 PM ~~~~~~~~~~~~~~~~~~~~~~~~~~~~~~~~~~~~~~~~~~~~~~~~~~~~~~~~~~ Attending physician addendum: I independently saw and evaluated the patient. I personally obtained the romero and critical portion of the history and physical exam. I reviewed and agree with the documentation below. I personally reviewed patient's labs and imaging studies. My findings agree with the below note except for any details corrected. I have examined the patient at the date below. Problem List[1] I have evaluated the patient on: 04/29/25 Total Care Time (combined between SHUTTLE DRIVER-RN HEMODIALYSIS/PA-C/resident and myself) throughout the day today was >= 30 minutes (including chart/data review/analysis, care coordination, and [id number] encounter), and was spent discussing/counseling the patient/family regarding the care plan for Lesli Rosales. I examined the patient independently. I reviewed relevant data myself and may have also done so in the context of team rounds. A full chart review was performed. In addition, time was also spent specifically coordinating care regarding: discharge planning, co-ordination with Consultants. I personally spent greater than 30 minutes involved with discharge planning, education, and coordination in arranging this patient's discharge today. Stephen Caldwell MD FACS Trauma, Surgical Critical Care, & General Surgery Division of Trauma Department of Surgery [facility] P [1] Patient Active Problem List Diagnosis Pulmonary fibrosis (HCC) Lung nodule Chronic obstructive pulmonary disease (HCC) CONCEPCION (obstructive sleep apnea) Psoriatic arthritis (HCC) Acute subdural hematoma (HCC) Fall Closed fracture of multiple ribs of left side with routine healing Closed fracture of left wrist Hematoma Chronic systolic (congestive) heart failure (HCC) Paroxysmal atrial fibrillation (HCC) Department of Trauma / Critical Care Discharge Summary Name: Lesli Rosales Date: 04/29/2025 3:01 PM : 1940 Age/Sex: 85 y.o. female Admit Date: 04/22/25 Discharge Date: 04/29/25 Attending: Domonique Gonzalez MD Discharge Diagnosis: 1. Acute subdural hematoma (HCC) 2. Fall, initial encounter 3. Closed fracture of multiple ribs of left side with routine healing 4. Hematoma 5. Chronic systolic (congestive) heart failure (HCC) 6. Paroxysmal atrial fibrillation (HCC) Problem List[1] Body mass index is 27.56 kg/m?. BMI Classification: Overweight (BMI 25.0-29.9) Reason for Hospitalization: The patient was admitted for fall. Hospital Course (Care, treatment and services provided): Please see H&P and prior notes for more detailed summary of previous investigations and clinical assessment prior to this admission. Brief HPI 85 y.o. female status post fall from standing height the incident happened around afternoon on 04/22. The patient was walking through her living room after folding some laundry and fell to the ground striking her right knee and left chest. She is unable to identify the cause of her fall however she does report that she was feeling somewhat dizzy and had a headache throughout the day preceding the fall. She denies any loss of consciousness. Her pain is currently 8/10. She is on Xarelto for A-fib. Patient initially presented to [facility] and was found to have a subdural hematoma 6 mm. She was given PCC prior to transfer for direct admission to T2 ICU. INJURIES: - Left frontal and anterior hemispheric SDH 6mm, no mass effect - Left 3 through 7 rib fractures - Right knee hematoma PROCEDURES: 04/25: Rib block INCIDENTAL FINDINGS: Chronic compression fractures of T8, L1 and L2 Mildly enlarged, calcified left iliac nodes may be due to prior granulomatous disease Hospital course: Direct admission from [facility] to SICU following a fall which resulted in the following injuries: Acute traumatic left frontal and anterior hemispheric subdural hematoma 6mm, no mass effect Acute traumatic left 3 through 7 rib fractures Possible Nondisplaced fracture of the left scaphoid waist Right knee hematoma Neurosurgery consulted, patient Xarelto was held. RCT Head on 04/23 demonstrates improvement in right frontal SDH. Interhemispheric SDH noted on first CT. Patient to hold Xarelto until outpatient follow up with NSGY. Orthopedic team consulted for patient's multiple orthopedic injuries, no acute intervention for left shoulder pain. Patient given left upper extremity sling and left removable thumb spica brace for comfort There is a sizable right knee hematoma following a fall on Xarelto. There are no associated fractures on right knee x-ray. Patient is nontender on the bony prominences of the right knee. Left shoulder will need furth (more content not included)...[facility]09-09-2025 Telephone encounter Note* Telephone Encounter - Pascale Carvajal MA - 04/29/2025 1:23 PM EDT Pt will be new to the office. [id number] Miscellaneous Notes* Telephone Encounter - Pascale Carvajal MA - 04/29/2025 1:23 PM EDT Pt will be new to the office. * Telephone Encounter - Allegra Valles RN - 04/29/2025 8:12 AM EDT Patient currently admitted. * Telephone Encounter - Allegra Shi RN - 04/28/2025 8:20 AM EDT Currently admitted * Telephone Encounter - Alicia Arredondo DO - 04/25/2025 4:01 PM EDT Seen inpatient for hematuria. Had CTU. Needs outpatient cysto. Thanks! documented in this [facility]09-09-2025 NoteCare Management Progress Note Short Medical why still here: Pt on 3W s/p fall SDH L 3-7 rib fxs. L wrist fx, R knee hta. Planned Discharge Disposition: Inpatient Rehab Facility ([facility]) Barriers/Today we still Wait: Other (comment) (pt approved, transportation confirmed for 330 pm with Juan M Christensen. nurse and son notified.) Length of Stay (Days): 7 GMLOS: 3 [facility]09-09-2025 Progress note* Care Coordination - Rebekah Escalona RN - 04/29/2025 12:38 PM EDT Care Management Progress Note Short Medical why still here: Pt on 3W s/p fall SDH L 3-7 rib fxs. L wrist fx, R knee hta. Planned Discharge Disposition: Inpatient Rehab Facility ([facility]) Barriers/Today we still Wait: Other (comment) (pt approved, transportation confirmed for 330 pm with Juan M Christensen. nurse and son notified.) Length of Stay (Days): 7 GMLOS: 3 [id number] Nurse Note* Lavern Steele RN - 04/29/2025 8:31 AM EDT Wound Care consulted for Pressure Injury Prevention. Pt's Hema score= 16 on 04/29 Pt's pressure points assessed. Pt turned with max assist of 1 (this RN) for posterior assessment. Pt's Heels, Buttocks/coccyx, Back, Elbows, Occiput and ears all intact. Bruising and swelling noted to right knee. [place] and blanchable tissues noted to bilateral heels. Blanchable erythema noted to coccyx. Skin tear noted to right lower back, pt states this area is from scratching. Female external catheter in place. Skin intact to medial thighs and labia. Pt incontinent of large amount of urine. Pads changed, incontinence care provided, sacral foam applied. Pt pulled up in bed using glide sheet and repositioned onto right side using pillows at end of visit with assist from this RN and professional nursing assistant. Instructed pt on pressure injury prevention and importance of turning/postioning every 2hrs while in bed and every 15 min while sitting in chair. Instructed on use and care of waffle chair cushion. Verbalized understanding. Prevention Measures in place, including: Valentines sheet with pillows/wedges, Foam heel protectors (obtained and applied), Heels elevated off bed on pillows, Sacral foam (obtained and applied), Zinc/Moisture Barrier ointment (obtained), Waffle chair cushion (obtained for pt). Skin Care precaution orderset in place. Dietitian civil drafting technician involved. PT/OT consult in place. D/W nursing staff. Will continue to follow pt. Please Vocera for any questions or concerns. Lavern Steele RN [id number] Telephone encounter Note* Telephone Encounter - Allegra Valles RN - 04/29/2025 8:12 AM EDT Patient currently admitted. [id number] History of Present illness Narrative* Dania Givens - 04/29/2025 8:04 AM EDT Nutrition update completed. Chart reviewed. Patient to be monitored and followed by the diet civil drafting technician. ARVIND Owen * MARILYN Maharaj - 04/28/2025 12:47 PM EDT Images from the original note were not included. OCCUPATIONAL THERAPY [facility] Treatment Note Name/MRN: Lesli Rosales ([id number]) Date of : 1940 Age: 85 y.o. Room/Bed: W3-325/W3-325 A Discharge Recommendation: IP Rehab Assessment Pt was alert and oriented x3. Pt sat EOB and completed oral hygiene and brushed hair. Pt is limitedby decreased activity tolerance, gen weakness, NWB LUE. Pt would benefit from continued OT servicesto increase ind c/ ADLs, fxl mobility and transfers. Recommending Rehab upon discharge. Subjective Pt was agreeable to tx, sat EOB and completed oral care. Pain: Pizano-Soliz Pain Ratin = Hurts little more Pain Location: LUE, back Medical Precautions: No active isolations Proper PPE donned/doffed in accordance with facility standards. Fall Risk: Curry Fall Risk Score: 85 (Low Risk) Curry Fall Risk Score: 85 (High Risk) Precautions/Restrictions: Lines/Drains/Airways: O2, external catheter, SPO2 Family/Caregiver Present: none Objective ADLs Grooming: Supervision EOB, pt completed oral care and brushed hair. SANDESR completed item retrieval. Bed Mobility Supine to sit: Min Assist Sit to supine: Min Assist Scooting: Mod Assist HOB Elevated Use of bed rail(s) Plan Continue acute OT per plan of care. Safety/Education Safety Safety Devices in place: All fall risk precautions in place, call light within reach, left in bed, bed alarm in place, patient at risk for falls, and nurse notified Restraints: No Education Education Given To: patient Education Provided: OT Role, Plan of Care, Energy Conservation, Discharge Recommendations, and Benefits of Increasing Activity Education Method: Verbal Barriers to Learning: Cognition Education Outcome: Verbalized Understanding AM-PAC AM-PAC Inpatient Daily Activity Raw Score: 13 ADL Inpatient CMS G-Code Modifier: CL Goals Patient Stated Goal: rehab Encounter Problems Encounter Problems (Active) Balance Patient will maintain static standing balance for 3 minutes with CGA in order to demonstrate decreased risk of falling. (Not Addressed) Start: 04/24/25 Expected End: 05/22/25 Dressing Upper Extremities Patient will complete upper body dressing with min assist (Not Addressed) Start: 04/24/25 Expected End: 05/22/25 Dressings Lower Extremities Patient will dress lower body with min assist (Not Addressed) Start: 04/24/25 Expected End: 05/22/25 Grooming Patient will complete daily grooming tasks with set up (Initiated) Start: 04/24/25 Expected End: 05/22/25 Mobility Patient will demonstrate functional ambulation with CGA and LRD (Not Addressed) Start: 04/24/25 Expected End: 05/22/25 Toileting Patient will complete toileting tasks at standard toilet with min assist. (Not Addressed) Start: 04/24/25 Expected End: 05/22/25 Transfers Patient will complete functional transfer with least restrictive device with CGA in order to prepare for ambulation. (Not Addressed) Start: 04/24/25 Expected End: 05/22/25 Patient will perform bed mobility with CGA in order to improve independence and prepare for out of bed mobility. (Not Addressed) Start: 04/24/25 Expected End: 05/22/25 Therapy Time Individual Co-treatment Time In 1206 Time Out 1220 Minutes 14 Timed Code Treatment Minutes: 14 Minutes 1 Self MARILYN Maharaj Cosigned by SUSAN Iglesias/Tennille at 04/29/2025 8:10 AM EDT * Philomena Preciado PTA - 04/28/2025 11:09 AM EDT Images from the original note were not included. PHYSICAL THERAPY [facility] Treatment Note Name/MRN: Lesli Rosales ([id number]) Date of : 1940 Age: 85 y.o. Room/Bed: W3-325/W3-325 A Discharge Recommendation: IP Rehab Equipment Needed: (tbd) Assessment Instability with all activity. Encouraged I.S. use, OOB, increased activity. SpO2 88-92% Rec rehab Subjective Right sidelye. Agree to PT Pain: left shoulder, right knee Medical Precautions: No active isolations Proper PPE donned/doffed in accordance with facility standards. Fall Risk: Curry Fall Risk Score: 85 (Low Risk) Curry Fall Risk Score: 85 (High Risk) Precautions/Restrictions: Lines/Drains/Airways: O2, external catheter, oxygen. NWB LUE; sling for comfort, assist to reposition/don sling. Overall Cognitive Status: WFL Overall Orientation Status: Oriented x4 Family/Caregiver Present: none Objective Bed Mobility Supine to sit: Min Assist Rolling to right: Min Assist Scooting: Min Assist HOB Elevated Use of bed rail(s) Coin RUE assist rail and trunk elevation Exit right, increased effort/time Transfers/Mobility Sit to stand: Min Assist Stand to sit: Min Assist Educated technique,anterior shift Difficulty low surface Ambulation Ambulation 1 Assistive device(s) used: None Assist level: Min Assist, Hand Held Assist Distance (ft): ~12'x2 Quality of gait: B foot clearance, uneven step length, narrow GALLO, slow carla, reaches for objects to stabilize, RUE reliance for support Balance: seated dynamic supervision. Stance unilat UE support min assist,instability all directions Exercises LUE distal AROM encouraged I.S. 500ml; poor ability, cause patient to gag, dry heave Plan Continue acute PT per plan of care. Safety/Education Safety Safety Devices in place: call light within reach, left in chair, chair alarm in place, gait belt, and nurse notified Restraints: No Education I.S., therex, transfers Outcome Measures AM-PAC AM-PAC Inpatient Mobility Raw Score (No Stairs) : 15 JH-HLM -HLM Score: Walked 10 steps or more (i.e. walked to restroom) Goals Patient Stated Goal: rehab Encounter Problems Encounter Problems (Active) Balance Patient will maintain dynamic standing balance for 3 minutes with CGA in order to demonstrate decreased risk of falling. (Progressing) Start: 04/23/25 Expected End: 05/14/25 Mobility Patient will ambulate 30 feet with CGA and rolling walker in order to improve safety and independence with mobility. (Progressing) Start: 04/23/25 Expected End: 05/14/25 Transfers Patient will perform bed mobility with CGA in order to improve independence and prepare for out of bed mobility. (Progressing) Start: 04/23/25 Expected End: 05/14/25 Patient will complete sit to stand transfer with CGA to wheeled walker in order to improve safety and prepare for out of bed mobility. (Progressing) Start: 04/23/25 Expected End: 05/14/25 Therapy Time Individual Co-treatment Time In 929 Time Out 954 Minutes 25 Timed Code Treatment Minutes: (fax2) Philomena Preciado PTA Cosigned by Kamille Mcguire, PT at 04/28/2025 1:28 PM EDT * Domonique Gonzalez MD - 04/28/2025 9:53 AM EDT Physician Response Please review the following and provide your response below. Please clarify which of the following accurately describes the patient's condition: SDH/R knee hematoma worsened by Xarelto This documentation will become part of the patient's medical record. * MARILYN Maharaj - 04/28/2025 9:08 AM EDT Images from the original note were not included. OCCUPATIONAL THERAPY [facility] Name/MRN: Lesli J Connie ([id number]) Date: 04/28/2025 Attempted to see pt this morning for OT, nursing and doctors at bedside. Will continue to follow. MARILYN Maharaj Cosigned by SUSAN Iglesias/Tennille at 04/29/2025 8:10 AM EDT * LAVELLE Jones CNP - 04/28/2025 8:46 AM EDT [facility] Geriatric Medicine Inpatient Consult Service Admission Date: 04/22/2025 Assessment Principal Problem: Acute subdural hematoma (HCC) Active Problems: Fall Closed fracture of multiple ribs of left side with routine healing Closed fracture of left wrist Hematoma Plan Fall with SDH, rib fractures -Multiple risk factors including chronic pain, COPD, deconditioning, decreased hearing -Continue PT/OT as able while inpatient -Vitamin D previously WNL (January 2025) -Check orthostatic vital signs as able -> negative -Medications with associated fall risk include: Atenolol - monitor for bradycardia/hypotension - rare low HR Balcofen - continue only at HS Furosemide - monitor for orthostasis/dehydration Percocet - long-standing med, dose likely reasonable No longer taking gabapentin, amitriptyline at home Acute pain due to trauma Chronic back pain --Recommend scheduled acetaminophen 1g TID with PRN oxycodone (5-10mg, not opioid naive) PRN for breakthrough Lab Results Component Value Date ALT 9 01/23/2025 AST 19 01/23/2025 ALKPHOS 107 01/23/2025 BILITOT 1.2 01/23/2025 -Optimize nonpharmacologic pain treatment modalities. -continue scheduled bowel regimen while on narcotics - recommend continuing on discharge -As above, baclofen only at HS at home, continue HS only here. -Butrans 5mcg at baseline, OK to continue here. -Was no longer taking gabapentin at home, now on 100mg BID, appears to be tolerating oK At risk for delirium --No evidence of at present. --Risk factors: head trauma/head bleed, pain, advanced age, possible medication effect --Encourage PO intake, time up in chair, family visits, supervised ambulation, and sleep hygiene --If agitated, assess for and consider treating for pain --QTc= 467 --No antipsychotic unless patient is danger to self/others/treatment --Continue PRN melatonin at HS --Monitor for constipation/urinary retention - last BM 04/27 --Possible medication contributions: narcotics Declining functional status --Related to acute injuries, chronic pain --Continue PT/OT as able while inpatient --Anticipate d/c to inpatient rehab closer to home, patient agreeable. OK to discharge to inpatient rehab from geriatric perspective Follow-up: 1-2 days Subjective Chief Complaint: fall Geriatrics consulted for Trauma due to fall HPI- The patient is known to me. 85 y.o. year-old female admitted to acute care from home for fall ("and I got woozy and I don't know what happened", only fall in the past 3.5 years). Diagnosed with multiple rib fractures, small subdural hematoma (stable to improved on repeat testing), L wrist fracture, R knee hematoma. Per initial geriatrics consult, lives at home with son. Mild baselien difficulty with short-term memory but not limiting function. Mostly independent at home. Wears O2 PRN. Interval History: Transferred to telemetry. Cooperative with medications. Used PRN oxycodone x 3 yesterday, none overnight. Na 140 this AM, CBC unremarkable. BM 04/27. Working towards inpatient rehab closer to home. Per RN, appears more comfortable since rib block last Monday. Pt reports doing OK. Onoging pain in L shoulder and L ribs, somewhat better after rib block, oxycodone helps. Able to get comfortable and sleep. Appetite is variable. Seen by PT. Mod assist. Ambulated - none. Recommending inpatient rehab. Review of Systems Respiratory: Positive for shortness of breath. Musculoskeletal: Positive for arthralgias and myalgias. Psychiatric/Behavioral: Negative for confusion and sleep disturbance. Objective BP 145/87 (BP Location: Right arm, Patient Position: Lying) Pulse 86 Temp 36.7 C (98 F) (Temporal) Resp 20 Ht 5' (1.524 m) Wt 136 lb 11 oz (62 kg) SpO2 94% BMI 26.69 kg/m Intake/Output Summary (Last 24 hours) at 04/28/2025 0846 Last data filed at 04/27/2025 1749 Gross per 24 hour Intake -- Output 1400 ml Net -1400 ml Wt Readings from Last 3 Encounters: 04/28/25 136 lb 11 oz (62 kg) 01/23/25 140 lb (63.5 kg) 06/07/24 160 lb (72.6 kg) Current Medications[1] Physical Exam Constitutional: No acute distress, well-nourished, well kempt Psych: Mood and affect Appropriate. Good eye contact. Cardiovascular: Regular rate and rhythm, no murmur, no BLE edema Pulmonary/Chest: Diminished to auscultation bilaterally, normal respiratory effort, no coughing noted Abdominal: Soft, not distended, no tenderness to palpation, BS present, Neurological: alert, attentive, speech is clear and appropriate , follows commands, no tremor Labs and Imaging: Recent Results (from the past 24 hours) POCT glucose meter Collection Time: 04/27/25 11:57 AM Result Value Ref Range Glucose 99 70 - 100 mg/dL POCT glucose meter Collection Time: 04/27/25 5:41 PM Result Value Ref Range Glucose 138 (H) 70 - 100 mg/dL POCT glucose meter Collection Time: 04/27/25 7:53 PM Result Value Ref Range Glucose 131 (H) 70 - 100 mg/dL CBC auto differential Collection Time: 04/28/25 5:03 AM Result Value Ref Range Auto WBC 6.9 3.6 - 10.7 10*3/uL RBC 3.94 3.80 - 5.20 10*6/uL Hemoglobin 13.0 11.7 - 16.0 g/dL Hematocrit 40.7 35.0 - 47.0 % MCV 103.3 (H) 77.0 - 99.0 fL MCH 33.0 26.0 - 34.0 pg MCHC 31.9 30.5 - 36.0 % RDW 13.9 11.5 - 15.0 % Platelets 180 140 - 440 10*3/uL MPV 11.1 9.0 - 12.7 fL nRBC 0.0 0.0 - 2.0 /100 WBCs Neutrophils Relative 57.9 38.0 - 82.0 % Lymphocytes Relative 25.3 15.0 - 45.0 % Monocytes Relative 11.6 5.0 - 13.0 % Eosinophils Relative 3.9 0.0 - 6.0 % Basophils Relative 0.7 0.0 - 2.0 % Immature Grans % 0.6 0.0 - 2.0 % Neutrophils Absolute 4.0 1.8 - 7.5 10*3/uL Lymphocytes Absolute 1.7 1.0 - 4.3 10*3/uL Monocytes Absolute 0.8 0.0 - 0.9 10*3/uL Eosinophils Absolute 0.3 0.0 - 0.5 10*3/uL Basophils Absolute 0.1 0.0 - 0.2 10*3/uL Immature Grans Absolute 0.0 <0.1 10*3/uL Basic metabolic panel Collection Time: 04/28/25 5:03 AM Result Value Ref Range SODIUM 140 136 - 145 mmol/L POTASSIUM 3.9 3.5 - 5.1 mmol/L CHLORIDE 103 98 - 107 mmol/L CARBON DIOXIDE 32 (H) 23 - 31 mmol/L UREA NITROGEN 16 9 - 23 mg/dL CREATININE 0.42 (L) 0.57 - 1.11 mg/dL GLUCOSE 76 (L) 82 - 115 mg/dL CALCIUM 8.7 (L) 8.8 - 10.0 mg/dL ANION GAP 5 3 - 13 mmol/L eGFR >90.0 >60.0 mL/min/1.73m*2 POCT glucose meter Collection Time: 04/28/25 7:47 AM Result Value Ref Range Glucose 105 (H) 70 - 100 mg/dL Lab Results Component Value Date TSH 1.35 01/23/2025 No results found for: "[id number]" Lab Results Component Value Date VITD25 63 01/23/2025 Reviewed: active problem lists, medications, and labs [1] Current Facility-Administered Medications: acetaminophen (Tylenol) tablet 1,000 mg, 1,000 mg, Oral, q8h, LAVELLE Shaffer CNP, 1,000 mg at 04/28/25 0819 atenolol (Tenormin) tablet 25 mg, 25 mg, Oral, Daily, LAVELLE Shaffer CNP, 25 mg at 819 baclofen (Lioresal) tablet 5 mg, 5 mg, Oral, Nightly, LAVELLE Jones CNP, 5 mg at [id number] buprenorphine (Butrans) 5 MCG/HR 5 mcg, 5 mcg, TransDERmal, Weekly, LAVELLE Jones CNP, 5 mcg at 04/24/25 1040 ceFAZolin (Ancef) 1,000 mg in sodium chloride 0.9 % 50 mL IVPB, 1,000 mg, IntraVENous, q8h, Alicia Arredondo DO, Stopped at 04/28/25 0638 cholecalciferol (Vitamin D-3) tablet 2,000 Units, 2,000 Units, Oral, Daily, LAVELLE Shaffer CNP, 2,000 Units at 04/28/25 0819 dextrose 5 % infusion, 100 mL/hr, IntraVENous, PRN, LAVELLE Shaffer CNP dextrose 50 % solution 12.5 g, 12.5 g, IntraVENous, PRN, LAVELLE Shaffer CNP docusate sodium (Colace) capsule 100 mg, 100 mg, Oral, BID, LAVELLE Castano CNP, 100 mg at 04/28/25 08 enoxaparin (Lovenox) syringe 30 mg, 30 mg, SubCUTAneous, q12h, Kiara Mendez, LAVELLE - RN HEMODIALYSIS, 30 mg at 04/28/25817 famotidine (Pepcid) tablet 20 mg, 20 mg, Oral, Daily, LAVELLE Shaffer CNP, 20 mg at 9 gabapentin (Neurontin) capsule 100 mg, 100 mg, Oral, q12h, Victorina Garsia APRN - RN HEMODIALYSIS, 100 mg at 04/28/25818 glucagon (human recombinant) injection 1 mg, 1 mg, IntraMUSCular, PRN, LAVELLE Shaffer CNP glucose oral gel 15 g, 15 g, Oral, PRN, LAVELLE Shaffer CNP Insulin Lispro (Humalog) injection 0-12 Units, 0-12 Units, SubCUTAneous, TID WC AND Insulin Lispro (Humalog) injection 0-12 Units, 0-12 Units, SubCUTAneous, Nightly, LAVELLE Shaffer CNP ipratropium-albuterol (Duo-Neb) 0.5-2.5 mg/3 mL nebulizer solution 3 mL, 3 mL, Nebulization, q2h PRN, LAVELLE Shaffer CNP, 3 mL at 04/24/25 0528 ipratropium-albuterol (Duo-Neb) 0.5-2.5 mg/3 mL nebulizer solution 3 mL, 3 mL, Nebulization, 2 times per day, Domonique Gonzalez MD, 3 mL at 04/28/25 0815 melatonin tablet 3 mg, 3 mg, Oral, Nightly PRN, LAVELLE Jones CNP mometasone-formoterol (Dulera 100) 100-5 MCG/ACT inhaler 2 puff, 2 puff, Inhalation, BID, LAVELLE Shaffer CNP, 2 puff at 04/28/25 08 naloxone (Narcan) injection 0.4 mg, 0.4 mg, IntraVENous, PRN, LAVELLE Shaffer CNP ondansetron ODT (Zofran-ODT) disintegrating tablet 4 mg, 4 mg, Oral, q8h PRN OR ondansetron (Zofran) injection 4 mg, 4 mg, IntraVENous, q6h PRN, LAVELLE Shaffer CNP, 4 mg at 04/23/25 0405 oxyCODONE (Roxicodone) immediate release tablet 2.5 mg, 2.5 mg, Oral, q4h PRN OR oxyCODONE (Roxicodone) immediate release tablet 5 mg, 5 mg, Oral, q4h PRN, LAVELLE Noel CNP, 5 mg at 04/28/25 0820 polyethylene glycol (PEG) 3350 (Miralax) packet 17 g, 17 g, Oral, BID, LAVELLE Castano CNP, 17 g at 04/28/25 0818 sennosides (Senokot) tablet 17.2 mg, 2 tablet, Oral, BID, LAVELLE Shaffer CNP, 17.2 mg at 04/28/25 0818 sodium chloride 0.9% (NS) flush 30 mL, 30 mL, IntraVENous, q6h, LAVELLE Shaffer CNP, 30 mL at 04/28/25 0613 sodium chloride 0.9% (NS) flush 30 mL, 30 mL, IntraVENous, PRN, LAVELLE Shaffer CNP sodium chloride 0.9% (NS) flush 30 mL, 30 mL, IntraVENous, PRN, LAVELLE Shaffer CNP sodium chloride 3 % hypertonic nebulizer solution 4 mL, 4 mL, Nebulization, q12h, LAVELLE Shaffer CNP, 4 mL at 04/28/25 0823 tiotropium (Spiriva Respimat) 2.5 MCG/ACT inhaler 2 puff, 2 puff, Inhalation, Daily, LAVELLE Shaffer CNP, 2 puff at 04/28/25 0818 * LAVELLE Castano CNP - 04/27/2025 6:34 AM EDT Images from the original note were not included. Daily Trauma Progress Note ROB 04/26/2025 10:04 AM Admit Date: 04/22/2025 Post Trauma Day 5 Fall of unknown etiology HISTORY OF TRAUMATIC EVENT: 85 y.o. female status post fall from standing height the incident happened around afternoon on 04/22.The patient was walking through her living room after folding some laundry and fell to the ground striking her right knee and left chest. She is unable to identify the cause of her fall however she does report that she was feeling somewhat dizzy and had a headache throughout the day preceding the fall. She denies any loss of consciousness. Her pain is currently 8/10. She is on Xarelto for A-fib. Patient initially presented to [facility] and was found to have a subdural hematoma 6 mm. She was givenPCC prior to transfer for direct admission to T2 ICU. INJURIES: - Left frontal and anterior hemispheric SDH 6mm, no mass effect - Left 3 through 7 rib fractures - Left wrist pain - Right knee hematoma - Acute traumatic pain Imaging reviewed and independently interpreted: CT chest reviewed -multiple acute/chronic rib fractures --> suspect acute 3 through 7 rib fractures anterior on the L CTH - left frontal and interhemispheric subdural hematoma measuring 6 mm without mass effect PROCEDURES: none INCIDENTAL FINDINGS: Chronic compression fractures of T8, L1 and L2 Mildly enlarged, calcified left iliac nodes may be due to prior granulomatous disease CHIEF COMPLAINT: L shoulder pain Headache R knee pain L rib pain PREVIOUS 24 HOUR EVENTS: -ortho re evaluated L shoulder-no fracture Consults: IP CONSULT TO WOUND PREVENTION IP CONSULT TO ORTHOPAEDIC SURGERY IP CONSULT TO GERIATRICS IP CONSULT TO PALLIATIVE CARE IP CONSULT TO NEUROSURGERY IP CONSULT TO ANESTHESIOLOGY - ACUTE PAIN SERVICE IP CONSULT TO UROLOGY MEDICATIONS: Current Medications[1] ARE THERE PERTINENT UPDATES TO PAST,FAMILY, OR SOCIAL HISTORY?: No Subjective: Resting in bed. States rib pain a little improved since rib block. C/O Left shoulder pain. States she is on a carb control diet and can't order syrup. Review of Systems Constitutional: Positive for activity change. HENT: Negative. Eyes: Negative. Respiratory: Positive for shortness of breath (with excertion). Cardiovascular: Positive for chest pain (L rib pain). Gastrointestinal: Negative. Genitourinary: Positive for hematuria. Musculoskeletal: Positive for arthralgias, gait problem, joint swelling and myalgias. Skin: Positive for wound (R knee abrasion). Neurological: Positive for dizziness (intermittent) and headaches. Negative for facial asymmetry, speech difficulty, weakness and light-headedness. Hematological: Bruises/bleeds easily. Psychiatric/Behavioral: Negative for agitation, behavioral problems and confusion. PC-PTSD-5 Had nightmares about the event(s) or thought about the event(s) when you did not want to? No 2. Tried hard not to think about the event(s) or went out of your way to avoid situations that reminded you of the event(s)? No 3. Been constantly on guard, watchful, or easily startled? No 4. Amorita numb or detached from people, activities, or your surroundings? No 5. Amorita guilty or unable to stop blaming yourself or others for the event(s) or any problems the event(s) may have caused? No If yes to 3 or more, [address] CLP consult PHQ In the last 2 weeks have you had: Little interest or pleasure in doing things No Been feeling down, depressed, or hopeless No If greater then 0, place CLP consult Date PHQ completed: 04/23/25 Objective: Patient Vitals for the past 24 hrs: BP Temp Temp src Pulse Resp SpO2 Weight 04/26/25 0957 122/71 36.3 C (97.3 F) Temporal 64 18 97 % -- 04/26/25 0600 -- -- -- -- -- -- 65.8 kg (145 lb 1 oz) 04/26/25 0536 157/91 36.2 C (97.2 F) Temporal 72 16 98 % -- 04/26/25 0127 124/85 36.2 C (97.1 F) Temporal 78 16 96 % -- 04/25/25 2119 124/78 36.5 C (97.7 F) Temporal 70 16 97 % -- 04/25/251999 -- -- -- 63 14 -- -- 04/25/25 1838 134/74 36.6 C (97.9 F) Temporal 68 18 98 % -- 04/25/25 1506 113/71 36.2 C (97.1 F) Temporal 61 18 94 % -- 04/25/25 1321 -- -- -- -- -- 96 % -- 04/25/25 1111 122/78 36.1 C (97 F) Temporal 83 18 96 % -- Intake/Output Summary (Last 24 hours) at 04/26/2025 1004 Last data filed at 04/25/2025 1859 Gross per 24 hour Intake -- Output 900 ml Net -900 ml No intake/output data recorded. 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 Constitutional: General: She is not in acute distress. Appearance: Normal appearance. She is not ill-appearing or toxic-appearing. HENT: Head: Normocephalic. Comments: Ecchymosis R temporal region Right Ear: External ear normal. Left Ear: External ear normal. Nose: Nose normal. Mouth/Throat: Mouth: Mucous membranes are moist. Eyes: Extraocular Movements: Extraocular movements intact. Conjunctiva/sclera: Conjunctivae normal. Cardiovascular: Rate and Rhythm: Normal rate. Pulses: Normal pulses. Pulmonary: Effort: Pulmonary effort is normal. No respiratory distress. Chest: Chest wall: Tenderness present. Abdominal: General: Bowel sounds are normal. There is no distension. Palpations: Abdomen is soft. Tenderness: There is no abdominal tenderness. Musculoskeletal: General: Swelling, tenderness and signs of injury present. Cervical back: Normal range of motion and neck supple. No tenderness. Comments: R knee hematoma with abrasion L thumb spica velcro splint Limited ROM LUE-->L shoulder pain, sling in place Skin: General: Skin is warm and dry. Capillary Refill: Capillary refill takes 2 to 3 seconds. Findings: Bruising present. Neurological: General: No focal deficit present. Mental Status: She is alert and oriented to person, place, and time. Mental status is at baseline. Cranial Nerves: No cranial nerve deficit. Psychiatric: Mood and Affect: Mood normal. Behavior: Behavior normal. Sutures or krissy? No O2: 4L NC, wean to keep 88-92% (wears 2L NC intermittently at home) Data Review Data CBC with Differential: Lab Results Component Value Date WBC 9.6 04/26/2025 RBC 4.20 04/26/2025 HGB 13.7 04/26/2025 HCT 44.3 04/26/2025 PLT 154 04/26/2025 CMP: Lab Results Component Value Date NA 142 04/26/2025 K 4.3 04/26/2025 CL 107 04/26/2025 CO2 29 04/26/2025 BUN 25 (H) 04/26/2025 CREATININE 0.46 (L) 04/26/2025 GLUCOSE 83 04/26/2025 CALCIUM 9.2 04/26/2025 BMP: Hepatic Function Panel:Ionized Calcium: No components found for: "IONCA" Magnesium: No results found for: "MG" Phosphorus: No results found for: "PHOS" PT/INR: No results found for: "PROTIME", "INR" PTT: No results found for: "APTT"[APTT Last 3 Troponin: No results found for: "TROPONINI" Urine Culture: No components found for: "CURINE" Blood Culture: No components found for: "CBLOOD", "CFUNGUSBL" Blood Culture from Central Line: No components found for: "CBLOODLN" Stool Culture: No components found for: "CSTOOL" Sputum Culture: No components found for: "CSPUTUM" Sputum Culture for AFB: No components found for: "CAFBSM" Wound Culture: na Radiology: XR hand 1 or 2 views left Result Date: 04/23/2025 [facility] 1940 [id number] Exam Date/Time: 04/23/2025 02:22 Procedure: XR HAND 1-2 VIEWS LEFT Ordering Provider: GONZALEZ KATIE Reason For Exam: trauma LEFT HAND: CLINICAL INDICATION: trauma. Injury with pain TECHNIQUE: PA, Lat COMPARISON: None. FINDINGS: Artifacts overlie the hand and wrist. There is no fracture or dislocation. Minimal spurring and narrowing is noted about the DIP and PIP joints along with the firstcarpometacarpal joint. No bone lesion is identified. There is no other soft tissue abnormality. No acute abnormality. Minimal degree of osteoarthritis. Report Dictated on Electronically Signed By: Harpreet Hood MD Electronically Signed Date/Time: 04/23/2025 3:16 AM EDT Problem List[2] ASSESSMENT: 85-year-old female status post fall of uncertain etiology from standing height on Bdayto. Presented to [facility] found to have left frontal and interhemispheric subdural hematoma measuring 6 mm without mass effect, as well as concern for acute left rib fractures on personal review of imaging and by comparison with exam most concerning for left 3rd through 7th rib fractures as well as a left scaphoid fx. PLAN: Neuro/Spine: -Neurosurgery consulted, recommend the following: Repeat CT head showed improvement in right frontal SDH. Interhemispheric SDH noted on first CT. CT as above No neurosurgical intervention indicated Continue to hold OAC (xarelto) until OP follow up May start DVT ppx in 48 hrs No need for AED CT head in 1-2 weeks OP Will sign off-info in AVS - Pain control: Tylenol 1gm q8hrs, gabapentin 100mg q12hrs, Oxy 5/10mg prn, Dilaudid for breakthrough - Home Baclofen -changed to HS - Hold home Percocet (Tylenol and Oxy) - Home Buprenorphine patch weekly - Palliative consult - Geriatrics consult -Medications with associated fall risk include: Atenolol - monitor for bradycardia/hypotension Balcofen - takes at HS only, recommend decreasing to HS only here Furosemide - monitor for orthostasis/dehydration Percocet - long-standing med, dose likely reasonable No longer taking gabapentin, amitriptyline at home - Cont Melatonin 3mg HS - APS consult-->rib block complete HEENT: - no concerns Cardiovascular: - Hypotension resolved: SBP 94-141 - Home Atenolol 25mg daily- hold for HR <60 or SBP <100 - BP Goal <160 SBP - Telemetry - Orthostatic BPs negative on 04/23 - 04/23- EKG- A-fib, Qtc 467 ms - Repeat Echo 04/23- LVEF 60% mild, aortic valve stenosis, Left atrium severely dilated -last 02/11/21 echo EF 68% - HOLD Xarelto-->until OP follow up with NSGY - Holding home lasix Pulmonary: Hx COPD, CHF -# Acute left 3rd through 7th rib fractures - Multimodal pain control as above - APS rib block completed - Daily chest x-rays CXR - Pulmonary congestion, small right pleural effusion-daily chest xrays -xray this a.m. demonstrated congestion-20 mg Lasix IV x 1 ordered-follow up chest xray a.m. - Aggressive pulm toilet with incentive spirometry- pulling 250-500ml on IS -Cont AccuPAP - Home Symbicort-->substitute Dulera - Home Spiriva - 3% nebs Q12 - Duonebs QID and prn #COPD - standard O2 protocol; patient on as needed oxygen at home, O2 goal SpO2 greater than 88% - wears home oxygen at 2L NC intermittently FEN/GI: -Diet: Carb control - Zofran PRN - bowel regimen- miralax daily and senna BID - Home Vit D - Daily BMP : - Estimated Creatinine Clearance: 77 mL/min (A) (by C-G formula based on SCr of 0.46 mg/dL (L)). 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, resolved- now noted gross hematuria 04/24 -04/24 UA- (+) UTI 04/24- Rocephin started -Urology consulted- UA +for infxn - check urine culture (p) - No acute urologic surgical intervention at this time - IV Abx - start ancef - adjust per culture results - obtain PVR - Optimize pain/nausea control - Monitor fevers/hypotension - Remainder of care per primary team - Urology will sign off at this time - follow up outpatient prn - 04/25- CT urogram today- no urinary calculi, hydroureteronephrosis, or renal/bladder mass Heme: - Hgb stable 13.7< 13.8 <13.6 - No transfusions indicated - CBC PRN ID: -Afebrile, mild leukocytosis 111.3< 1.3 <10.1 -04/24 UA (+) UTI- 04/24 started on Rocephin Urine cultures pending - CBC PRN Endo: - Hold home Jardiance - Humalog sliding scale AC&HS - MBS checks AC&HS Lines/Devices: - PIV - L velcro thumb spica splint Prophylaxis: DVT: SCDs Lovenox 30 mg subcutaneous q 12 hours-XA level-0.4 Holding home xarelto until OP follow up with NSGY Has DVT PPX been started? Yes If no, why? N/a GI: home Pepcid Pressure Ulcer: reposition Q2 Musculoskeletal: Left shoulder pain-d/w ortho-dedicated L shoulder film completed-no fracture- continue ice and elevate #left scaphoid fx- seen by Ortho- no fx - PT/OT- PT recs for IP rehab Ortho consult: Patient is nontender in the left anatomic snuffbox and there is no evidence of acute fracture of the left scaphoid on scaphoid view. She has tenderness with motion of her shoulder. It is unclear if this is referred from her rib fractures or if this is an exacerbation of left shoulder osteoarthritiscausing pain with motion. Regardless, there are no fractures of the proximal left humerus where thepatient is experiencing pain. -No acute intervention for left shoulder pain. Recommend pain management through the primary service. -Patient given left upper extremity sling and left removable thumb spica brace for comfort -There is a sizable right knee hematoma following a fall on Xarelto. There are no associated fractures on right knee x-ray. Patient is nontender on the bony prominences of the right knee. -No acute intervention for a right knee hematoma without fracture. Recommend compressive dressing for comfort and to aid in hematoma resolution. -Weightbearing as tolerated -Activity as tolerated -Ice & elevate -Neurovascular checks -Skin checks -Follow-up outpatient - Pain and medical management per trauma -Orthopaedic surgery will sign off. WB Status: RUE:at LUE: NWB RLE: at LLE: at Is the patient in restraints?: na Medications Reconciled- Yes [x] NO [], why n/a Disposition: Cont care on 3W, dispo planning [1] Current Facility-Administered Medications: acetaminophen (Tylenol) tablet 1,000 mg, 1,000 mg, Oral, q8h, LAVELLE Shaffer CNP, 1,000 mg at 04/26/25 06 atenolol (Tenormin) tablet 25 mg, 25 mg, Oral, Daily, LAVELLE Shaffer CNP, 25 mg at 820 baclofen (Lioresal) tablet 5 mg, 5 mg, Oral, Nightly, LAVELLE Jones CNP, 5 mg at 211 buprenorphine (Butrans) 5 MCG/HR 5 mcg, 5 mcg, TransDERmal, Weekly, Nabeel J Harvan, SHUTTLE DRIVER - RN HEMODIALYSIS, 5 mcg at 04/24/25 1040 ceFAZolin (Ancef) 1,000 mg in sodium chloride 0.9 % 50 mL IVPB, 1,000 mg, IntraVENous, q8h, Alicia Arredondo DO, Stopped at 04/26/25 0656 cholecalciferol (Vitamin D-3) tablet 2,000 Units, 2,000 Units, Oral, Daily, Victorina Garsia APRN - RN HEMODIALYSIS, 2,000 Units at 04/26/25 0819 dextrose 5 % infusion, 100 mL/hr, IntraVENous, PRN, Victorina Garsia APRN - MARJ dextrose 50 % solution 12.5 g, 12.5 g, IntraVENous, PRN, Victorina Garsia APRN - MARJ docusate sodium (Colace) capsule 100 mg, 100 mg, Oral, BID, Marjorie Tuttle APRN - RN HEMODIALYSIS enoxaparin (Lovenox) syringe 30 mg, 30 mg, SubCUTAneous, q12h, Kiara Simms, LAVELLE - RN HEMODIALYSIS, 30 mg at 04/26/25 0826 famotidine (Pepcid) tablet 20 mg, 20 mg, Oral, Daily, Victorina Garsia APRN - RN HEMODIALYSIS, 20 mg at 821 gabapentin (Neurontin) capsule 100 mg, 100 mg, Oral, q12h, Victorina Garsia APRN - RN HEMODIALYSIS, 100 mg at 04/26/25 0820 glucagon (human recombinant) injection 1 mg, 1 mg, IntraMUSCular, PRN, Victorina Garsia APRN - RN HEMODIALYSIS glucose oral gel 15 g, 15 g, Oral, PRN, Victorina Garsia APRN - RN HEMODIALYSIS HYDROmorphone (Dilaudid) injection 0.5 mg, 0.5 mg, IntraVENous, q4h PRN, Ninfa Colindres MD, 0.5 mg at 04/25/25 1137 Insulin Lispro (Humalog) injection 0-12 Units, 0-12 Units, SubCUTAneous, TID WC AND Insulin Lispro (Humalog) injection 0-12 Units, 0-12 Units, SubCUTAneous, Nightly, Victorina Garsia APRN - RN HEMODIALYSIS ipratropium-albuterol (Duo-Neb) 0.5-2.5 mg/3 mL nebulizer solution 3 mL, 3 mL, Nebulization, q2h PRN, LAVELLE Shaffer CNP, 3 mL at 04/24/25 0528 ipratropium-albuterol (Duo-Neb) 0.5-2.5 mg/3 mL nebulizer solution 3 mL, 3 mL, Nebulization, BID, Domonique Gonzalez MD, 3 mL at 04/25/25 1321 melatonin tablet 3 mg, 3 mg, Oral, Nightly PRN, LAVELLE Jones CNP mometasone-formoterol (Dulera 100) 100-5 MCG/ACT inhaler 2 puff, 2 puff, Inhalation, BID, LAVELLE Shaffer CNP, 2 puff at 04/26/25 0817 naloxone (Narcan) injection 0.4 mg, 0.4 mg, IntraVENous, PRN, LAVELLE Shaffer CNP ondansetron ODT (Zofran-ODT) disintegrating tablet 4 mg, 4 mg, Oral, q8h PRN OR ondansetron (Zofran) injection 4 mg, 4 mg, IntraVENous, q6h PRN, LAVELLE Shaffer CNP, 4 mg at 04/23/25 0405 oxyCODONE (Roxicodone) immediate release tablet 2.5 mg, 2.5 mg, Oral, q4h PRN OR oxyCODONE (Roxicodone) immediate release tablet 5 mg, 5 mg, Oral, q4h PRN, LAVELLE Noel CNP, 5 mg at 04/26/25 0601 polyethylene glycol (PEG) 3350 (Miralax) packet 17 g, 17 g, Oral, BID, LAVELLE Castano CNP sennosides (Senokot) tablet 17.2 mg, 2 tablet, Oral, BID, LAVELLE Shaffer CNP, 17.2 mg at 04/26/25 0820 sodium chloride 0.9% (NS) flush 30 mL, 30 mL, IntraVENous, q6h, LAVELLE Shaffer CNP, 30 mL at 04/26/25 0614 sodium chloride 0.9% (NS) flush 30 mL, 30 mL, IntraVENous, PRN, Victorina Garsia APRN - MARJ sodium chloride 0.9% (NS) flush 30 mL, 30 mL, IntraVENous, PRN, Victorina Garsia APRN - RN HEMODIALYSIS sodium chloride 3 % hypertonic nebulizer solution 4 mL, 4 mL, Nebulization, q12h, LAVELLE Shaffer CNP, 4 mL at 04/25/251999 tiotropium (Spiriva Respimat) 2.5 MCG/ACT inhaler 2 puff, 2 puff, Inhalation, Daily, LAVELLE Shaffer CNP, 2 puff at 04/26/25 0816 [2] Patient Active Problem List Diagnosis Pulmonary fibrosis (HCC) Lung nodule Chronic obstructive pulmonary disease (HCC) CONCEPCION (obstructive sleep apnea) Psoriatic arthritis (HCC) Acute subdural hematoma (HCC) Fall Closed fracture of multiple ribs of left side with routine healing Closed fracture of left wrist Hematoma Cosigned by Domonique Gonzalez MD at 04/27/2025 2:38 PM EDT Associated attestation - Domonique Gonzalez MD - 04/27/2025 2:38 PM EDT ~~~~~~~~~~~~~~~~~~~~~~~~~~~~~~~~~~~~~~~~~~~~~~~~~~~~~~~~~~~~~ ATTENDING ADDENDUM Problem List[1] I have personally performed a face to face diagnostic evaluation on this patient. I have reviewed and agree with the care plan as documented above by my SHUTTLE DRIVER/KILEY. I personally discussed the review of systems and interviewed the patient along with performing a physical examination. In addition, I discussed the patient's condition and treatment options with him/her when possible. All of the patient's questions were answered and family updated when appropriate and possible. I I performed a physical exam and ROS on the same date of service as above. My findings agree with the above note except for any details corrected below. A complete review of systems was obtained and is negative except as stated in HPI. HPI: 85 y.o. female status post fall from standing height the incident happened around afternoon on 04/22.The patient was walking through her living room after folding some laundry and fell to the ground striking her right knee and left chest. She is unable to identify the cause of her fall however she does report that she was feeling somewhat dizzy and had a headache throughout the day preceding the fall. She denies any loss of consciousness. Her pain is currently 8/10. She is on Xarelto for A-fib. Patient initially presented to [facility] and was found to have a subdural hematoma 6 mm. She was givenPCC prior to transfer for direct admission to T2 ICU. Imaging reviewed and independently interpreted: CT chest reviewed -multiple acute/chronic rib fractures --> suspect acute 3 through 7 rib fractures anterior on the L CTH - left frontal and interhemispheric subdural hematoma measuring [address] without mass effect CT urogram - Mildly enlarged, calcified left iliac nodes, nonspecific but may be due to prior granulomatous disease. - Moderate stool throughout the colon. Consider constipation. Problem list: Acute, acute on chronic, unstable or uncontrolled chronic problems/diagnoses: Acute traumatic left frontal and anterior hemispheric subdural hematoma 6mm, no mass effect Acute traumatic left 3 through 7 rib fractures Left shoulder osteoarthritis and a right knee hematoma Acute traumatic pain ?Pre-syncopal fall Constipation Incidental - Chronic compression fractures of T8, L1 and L2 Stable chronic problems, affecting patient care: Past Medical History Diagnosis Date Arthritis Atrial fibrillation (HCC) Chronic obstructive pulmonary disease (HCC) 08/24/2017 Chronic pain Congestive heart failure (CHF) (HCC) GERD (gastroesophageal reflux disease) Hypertension Osteoarthritis Pain management Psoriasis 24h: Complains of L rib pain - Rib pain stable Complains of L shoulder pain - unchanged - Patient is not maximizing oral pain regimen -I explained to the patient that she needs to ask forthe oral pain meds and that she can get them every 4 hours - discussed with Ortho - Patient was previously seen by the orthopedic team on 04/23/2025 and found to have left shoulder osteoarthritis right knee hematoma. Patient was updated on her diagnoses and plan of care which for now will be pain control per primary team and outpatient patient follow-up as needed if she continues to have shoulder pain following hospital discharge. No acute operative intervention is indicated. --> plan for follow up outpatient Patient complains of Morales wrap on her right knee being too tight - This was loosened - Continue Morales to right knee DC L arm splint -this was placed for comfort, patient denies pain in wrist Orthostatics neg Hgb stable at 13.7 DC labs Urology started ancef --> change to rocephin - urine culture --> proteus Mirabilis and Enterococcus faecalis Chest x-ray consistent with hypervolemia -20 cc of Lasix today IV -repeat CXR tomorrow -May require multiple rounds of diuresis Plan: Neurological system #Acute traumatic left frontal and anterior hemispheric subdural hematoma 6mm, no mass effect - Patient received PCC at the OSH for Xarelto - No seizure prophylaxis at this time - Repeat CT in the morning - Elevate head of bed 30 degrees -No neurosurgical intervention indicated -Continue to hold OAC until OP follow up -May start DVT ppx in 48 hrs -No need for AED -CT head in 1-2 weeks OP # Chronic pain - Home amitriptyline --> no longer taking - Home baclofen nightly - home butrans #Acute pain - Multimodal pain control # At risk for delirium/acute encephalopathy - Delirium precautions: increase activity, limit nighttime disturbances, and avoid anticholinergic meds, benzos, etc Circulatory system # Atrial fibrillation, hypertension, HFpEF - 02/11/21 echo EF 68% - Hold Xarelto - atenolol 25 mg - Home Jardiance 10 mg - Echo EF 60% - SBP 110-160 - PRN anti-htn med - HOLD home Lasix 20 mg as needed edema Respiratory system # COPD # Acute traumatic left 3 through 7 rib fractures - Home Symbicort -> substitute Dulera - O2 protocol - Aggressive pulmonary hygiene Gastrointestinal system # GERD -Home Pepcid #Constipation - Bowel regimen Renal function - Strict I/Os #Gross hematuria, cystitis - Labs and imaging reviewed - trend daily labs - No acute urologic surgical intervention at this time - IV Abx -cefazolin x 3 days - obtain PVR - Optimize pain/nausea control - Monitor fevers/hypotension Immunologic system [x] Mupirocin for empiric MRSA decolonization x5 days - Monitor for fevers Hematologic system - Monitor hemoglobin Endocrine system - Monitor glucose Integumentary system (GI and cutaneous) - Skin checks # Right knee hematoma - CTM - morales wrap Musculoskeletal system - PTOT #left shoulder osteoarthritis and a right knee hematoma - Orthopedic consultation - Nonweightbearing left upper extremity -Patient is nontender in the left anatomic snuffbox and there is no evidence of acute fracture of the left scaphoid on scaphoid view. She has tenderness with motion of her shoulder. It is unclear if this is referred from her rib fractures or if this is an exacerbation of left shoulder osteoarthritis causing pain with motion. Regardless, there are no fractures of the proximal left humerus where the patient is experiencing pain. -No acute intervention for left shoulder pain. Recommend pain management through the primary service. -Patient given left upper extremity sling and left removable thumb spica brace for comfort (for comfort) -There is a sizable right knee hematoma following a fall on Xarelto. There are no associated fractures on right knee x-ray. Patient is nontender on the bony prominences of the right knee. -No acute intervention for a right knee hematoma without fracture. Recommend compressive dressing for comfort and to aid in hematoma resolution. -Weightbearing as tolerated -Activity as tolerated -Ice & elevate -Neurovascular checks -Skin checks -Follow-up outpatient Ppx - DVT prophylaxis: SCDs, lovenox - GI prophylaxis: []PPI, [x]Pepcid MEDS: Scheduled PRN Scheduled Meds[2] PRN Meds[3] Continuous Continuous Meds[4] Patient evaluated on 04/27/2025 Level of Medical Decision Making: risk of morbidity from additional diagnostic testing or treatment []High [x]Moderate []Low Complexity: Acute, complicated injury (MOD) Personally Reviewed/Independently interpreted patient's: [x]Epic notes: []Operations Superintendent notes, []Nursing notes, []Case management/SW []Radiology studies: []CT, []CXR, []AXR, []Pelvis XR [x]Labs: [x]CBC, [x]BMP, []CMP/LFTs, []PT/INR []EKG []Ordering tests []Other Discussed/ With: [x]Patient/Family: []Spouse, []Son/Daughter, []Mother/Father, []Friend []RN []Consultants: []Ortho, []Geriatrics, []Palliative, []PRS, []Nephro, []NCC, []NSG, []Cards IP CONSULT TO WOUND PREVENTION IP CONSULT TO ORTHOPAEDIC SURGERY IP CONSULT TO GERIATRICS IP CONSULT TO PALLIATIVE CARE IP CONSULT TO NEUROSURGERY IP CONSULT TO ANESTHESIOLOGY - ACUTE PAIN SERVICE IP CONSULT TO UROLOGY []SW/TCC []Other Time was spent, Reviewing medical record including recent tests and results Ordering prescription medications/tests and procedures Communicating results to the patient/family/caregiver Counseling/educating the patient/family/caregiver Documenting clinical information the patient's electronic record Coordination of care for the patient Performing a medical appropriate exam and evaluation ~~~~~~~~~~~~~~~~~~~~~~~~~~~~~~~~~~~~~~~~~~~~~~~~~~~~~~~~~~~~~ This note may have been dictated using Q[employer]branch Practice Edition 2.6 and/or [employer] Voice Recognition Feature. The document was proofread; however, unrecognized voice recognition ichthyologist errors may be present. [1] Patient Active Problem List Diagnosis Pulmonary fibrosis (HCC) Lung nodule Chronic obstructive pulmonary disease (HCC) CONCEPCION (obstructive sleep apnea) Psoriatic arthritis (HCC) Acute subdural hematoma (HCC) Fall Closed fracture of multiple ribs of left side with routine healing Closed fracture of left wrist Hematoma [2] acetaminophen, 1,000 mg, Oral, q8h atenolol, 25 mg, Oral, Daily baclofen, 5 mg, Oral, Nightly buprenorphine, 5 mcg, TransDERmal, Weekly ceFAZolin, 1,000 mg, IntraVENous, q8h cholecalciferol, 2,000 Units, Oral, Daily docusate sodium, 100 mg, Oral, BID enoxaparin, 30 mg, SubCUTAneous, q12h famotidine, 20 mg, Oral, Daily gabapentin, 100 mg, Oral, q12h insulin lispro, 0-12 Units, SubCUTAneous, TID WC And insulin lispro, 0-12 Units, SubCUTAneous, Nightly ipratropium-albuterol, 3 mL, Nebulization, 2 times per day mometasone-formoterol, 2 puff, Inhalation, BID polyethylene glycol (PEG) 3350, 17 g, Oral, BID sennosides, 2 tablet, Oral, BID sodium chloride 0.9%, 30 mL, IntraVENous, q6h sodium chloride, 4 mL, Nebulization, q12h tiotropium, 2 puff, Inhalation, Daily [3] PRN medications: dextrose, dextrose, glucagon (rDNA), glucose, ipratropium- albuterol, melatonin, naloxone, ondansetron ODT OR ondansetron, oxyCODONE OR oxyCODONE, sodium chloride 0.9%, sodium chloride 0.9% [4] * Angie Tran MD - 04/26/2025 1:52 PM EDT Brief Orthopedic Progress Note Ortho paged by trauma for pt complaints of persistent shoulder pain. XR L shoulder: There is no acute fracture or dislocation of the left proximal humerus clavicle or acromion. There is mild arthritic change of the AC joint. Humeral head is reduced within the glenoid fossa. Patient was previously seen by the orthopedic team on 04/23/2025 and found to have left shoulder osteoarthritis right knee hematoma. Patient was updated on her diagnoses and plan of care which for now will be pain control per primary team and outpatient patient follow-up as needed if she continues tohave shoulder pain following hospital discharge. No acute operative intervention is indicated. Please see prior orthopedic consult note for full orthopedic plan of care Angie Tran MD Orthopaedic Surgery PGY-2 Epic Chat * Sarah Givens RCP - 04/26/2025 12:42 PM EDT [facility] Respiratory Care Department Progress Note As part of the Respiratory Assessment Program (RAP), the following Respiratory Therapist evaluationhas been completed, including a chart review and clinical/physical assessment. Respiratory Therapist RAP Evaluation Guideline Points 0 1 2 3 4 Points Strongly Consider History Factor No Pulmonary conditions Stable Pulmonary condition(s) Surgery or Intervention that may impact Pulmonary system (at risk) Surgery or Intervention that is impacting Pulmonary system Active Exacerbation of Pulmonary Condition 1 Respiratory Pattern Regular, RR= 12-18 GOODWIN or Increased RR= 19-24 Irregular, or RR= 25-30 SOB, talk in short sentences, or RR= 31-35 Severe SOB, accessory muscle use, one word answers, or RR>35 0 Aerosol Med(s), High Flow O2 Breath Sounds Clear Diminished in 1 lobe Diminished in <= 2 lobes Adventitious breath sounds Coarse crackles, Wheezes, or Diminished in >2 lobes 0 Aerosol Med(s), Bronchial Hygiene, Hyperinflation Cough & Sputum Strong cough, no secretion retention or production Weak cough, no secretion retention or production Weak cough, w/ production (less often than Q2hr), or secretion retention No cough, w/ secretion retention or production (less often than Q2hr) Significant secretion production (more often than Q2hr) or mucus plug 0 Aerosol Med(s), Bronchial Hygiene, Hyperinflation Level of Activity Ambulatory Ambulatory with Assist Up in chair or edge of bed (dangle) Non-ambulatory, bedridden with active ROM Completely paralyzed or without active ROM 1 Triage 5 0-2 Triage 4 3-5 Triage 3 6-10 Triage 2 11-14 Triage 1 >=15 Total 2 Triage Score = 5 TRIAGE SCORING - SUGGESTED FREQUENCIES Aerosol Therapy Bronchial Hygiene Hyperinflation Triage Score Q4h & PRN 1 Q4hWA (QID) & PRN 2 TID & PRN 3 BID & PRN 4 PRN 5 Therapy(s) Indicated Yes/No Aerosol Medication y Hyperinflation Bronchial Hygiene High Flow Oxygen Flow Rates PEF (L/Sec) IVC FVC FEV1 FEV1/FVC Patient instructed and returned demonstration on use of MDI (with spacer, as appropriate) None RT to enter/modify frequency of treatment order in EMR/EHR to match this RAP evaluation. Based on this RAP evaluation the following therapy is being initiated: Duoneb At the following frequency: Q12 Comments: HTS is Q12, making duoneb aligned with HTS Thank you for involving Respiratory in the care of this patient, * Marjorie Tuttle APRN - RN HEMODIALYSIS - 04/26/2025 6:34 AM EDT Images from the original note were not included. Daily Trauma Progress Note ORB 04/26/2025 10:04 AM Admit Date: 04/22/2025 Post Trauma Day 4 Fall of unknown etiology HISTORY OF TRAUMATIC EVENT: 85 y.o. female status post fall from standing height the incident happened around afternoon on 04/22.The patient was walking through her living room after folding some laundry and fell to the ground striking her right knee and left chest. She is unable to identify the cause of her fall however she does report that she was feeling somewhat dizzy and had a headache throughout the day preceding the fall. She denies any loss of consciousness. Her pain is currently 8/10. She is on Xarelto for A-fib. Patient initially presented to [facility] and was found to have a subdural hematoma 6 mm. She was givenPCC prior to transfer for direct admission to T2 ICU. INJURIES: - Left frontal and anterior hemispheric SDH 6mm, no mass effect - Left 3 through 7 rib fractures - Left wrist pain - Right knee hematoma - Acute traumatic pain Imaging reviewed and independently interpreted: CT chest reviewed -multiple acute/chronic rib fractures --> suspect acute 3 through 7 rib fractures anterior on the L CTH - left frontal and interhemispheric subdural hematoma measuring 6 mm without mass effect PROCEDURES: none INCIDENTAL FINDINGS: Chronic compression fractures of T8, L1 and L2 Mildly enlarged, calcified left iliac nodes may be due to prior granulomatous disease CHIEF COMPLAINT: L shoulder pain Headache R knee pain L rib pain PREVIOUS 24 HOUR EVENTS: -rib block completed-states rib pain a little better Consults: IP CONSULT TO WOUND PREVENTION IP CONSULT TO ORTHOPAEDIC SURGERY IP CONSULT TO GERIATRICS IP CONSULT TO PALLIATIVE CARE IP CONSULT TO NEUROSURGERY IP CONSULT TO ANESTHESIOLOGY - ACUTE PAIN SERVICE IP CONSULT TO UROLOGY MEDICATIONS: Current Medications[1] ARE THERE PERTINENT UPDATES TO PAST,FAMILY, OR SOCIAL HISTORY?: No Subjective: Resting in bed. States rib pain a little improved since rib block. C/O Left shoulder pain. States she is on a carb control diet and can't order syrup. Review of Systems Constitutional: Positive for activity change. HENT: Negative. Eyes: Negative. Respiratory: Positive for shortness of breath (with excertion). Cardiovascular: Positive for chest pain (L rib pain). Gastrointestinal: Negative. Genitourinary: Positive for hematuria. Musculoskeletal: Positive for arthralgias, gait problem, joint swelling and myalgias. Skin: Positive for wound (R knee abrasion). Neurological: Positive for dizziness (intermittent) and headaches. Negative for facial asymmetry, speech difficulty, weakness and light-headedness. Hematological: Bruises/bleeds easily. Psychiatric/Behavioral: Negative for agitation, behavioral problems and confusion. PC-PTSD-5 Had nightmares about the event(s) or thought about the event(s) when you did not want to? No 2. Tried hard not to think about the event(s) or went out of your way to avoid situations that reminded you of the event(s)? No 3. Been constantly on guard, watchful, or easily startled? No 4. Amorita numb or detached from people, activities, or your surroundings? No 5. Amorita guilty or unable to stop blaming yourself or others for the event(s) or any problems the event(s) may have caused? No If yes to 3 or more, [address] CLP consult PHQ In the last 2 weeks have you had: Little interest or pleasure in doing things No Been feeling down, depressed, or hopeless No If greater then 0, place CLP consult Date PHQ completed: 04/23/25 Objective: Patient Vitals for the past 24 hrs: BP Temp Temp src Pulse Resp SpO2 Weight 04/26/25 0957 122/71 36.3 C (97.3 F) Temporal 64 18 97 % -- 04/26/25 0600 -- -- -- -- -- -- 65.8 kg (145 lb 1 oz) 04/26/25 0536 157/91 36.2 C (97.2 F) Temporal 72 16 98 % -- 04/26/25 0127 124/85 36.2 C (97.1 F) Temporal 78 16 96 % -- 04/25/25 2119 124/78 36.5 C (97.7 F) Temporal 70 16 97 % -- 04/25/251999 -- -- -- 63 14 -- -- 04/25/25 1838 134/74 36.6 C (97.9 F) Temporal 68 18 98 % -- 04/25/25 1506 113/71 36.2 C (97.1 F) Temporal 61 18 94 % -- 04/25/25 1321 -- -- -- -- -- 96 % -- 04/25/25 1111 122/78 36.1 C (97 F) Temporal 83 18 96 % -- Intake/Output Summary (Last 24 hours) at 04/26/2025 1004 Last data filed at 04/25/2025 1859 Gross per 24 hour Intake -- Output 900 ml Net -900 ml No intake/output data recorded. 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 Constitutional: General: She is not in acute distress. Appearance: Normal appearance. She is not ill-appearing or toxic-appearing. HENT: Head: Normocephalic. Comments: Ecchymosis R temporal region Right Ear: External ear normal. Left Ear: External ear normal. Nose: Nose normal. Mouth/Throat: Mouth: Mucous membranes are moist. Eyes: Extraocular Movements: Extraocular movements intact. Conjunctiva/sclera: Conjunctivae normal. Cardiovascular: Rate and Rhythm: Normal rate. Pulses: Normal pulses. Pulmonary: Effort: Pulmonary effort is normal. No respiratory distress. Chest: Chest wall: Tenderness present. Abdominal: General: Bowel sounds are normal. There is no distension. Palpations: Abdomen is soft. Tenderness: There is no abdominal tenderness. Musculoskeletal: General: Swelling, tenderness and signs of injury present. Cervical back: Normal range of motion and neck supple. No tenderness. Comments: R knee hematoma with abrasion L thumb spica velcro splint Limited ROM LUE-->L shoulder pain, sling in place Skin: General: Skin is warm and dry. Capillary Refill: Capillary refill takes 2 to 3 seconds. Findings: Bruising present. Neurological: General: No focal deficit present. Mental Status: She is alert and oriented to person, place, and time. Mental status is at baseline. Cranial Nerves: No cranial nerve deficit. Psychiatric: Mood and Affect: Mood normal. Behavior: Behavior normal. Sutures or krissy? No O2: 4L NC, wean to keep 88-92% (wears 2L NC intermittently at home) Data Review Data CBC with Differential: Lab Results Component Value Date WBC 9.6 04/26/2025 RBC 4.20 04/26/2025 HGB 13.7 04/26/2025 HCT 44.3 04/26/2025 PLT 154 04/26/2025 CMP: Lab Results Component Value Date NA 142 04/26/2025 K 4.3 04/26/2025 CL 107 04/26/2025 CO2 29 04/26/2025 BUN 25 (H) 04/26/2025 CREATININE 0.46 (L) 04/26/2025 GLUCOSE 83 04/26/2025 CALCIUM 9.2 04/26/2025 BMP: Hepatic Function Panel:Ionized Calcium: No components found for: "IONCA" Magnesium: No results found for: "MG" Phosphorus: No results found for: "PHOS" PT/INR: No results found for: "PROTIME", "INR" PTT: No results found for: "APTT"[APTT Last 3 Troponin: No results found for: "TROPONINI" Urine Culture: No components found for: "CURINE" Blood Culture: No components found for: "CBLOOD", "CFUNGUSBL" Blood Culture from Central Line: No components found for: "CBLOODLN" Stool Culture: No components found for: "CSTOOL" Sputum Culture: No components found for: "CSPUTUM" Sputum Culture for AFB: No components found for: "CAFBSM" Wound Culture: na Radiology: XR hand 1 or 2 views left Result Date: 04/23/2025 Patient Name: LESLI ROSALES : 1940 Exam Date/Time: 04/23/2025 02:22 Procedure: XR HAND 1-2 VIEWS LEFT Ordering Provider: GONZALEZ KATIE Reason For Exam: trauma LEFT HAND: CLINICAL INDICATION: trauma. Injury with pain TECHNIQUE: PA, Lat COMPARISON: None. FINDINGS: Artifacts overlie the hand and wrist. There is no fracture or dislocation. Minimal spurring and narrowing is noted about the DIP and PIP joints along with the firstcarpometacarpal joint. No bone lesion is identified. There is no other soft tissue abnormality. No acute abnormality. Minimal degree of osteoarthritis. Report Dictated on Electronically Signed By: Harpreet Hood MD Electronically Signed Date/Time: 04/23/2025 3:16 AM EDT Problem List[2] ASSESSMENT: 85-year-old female status post fall of uncertain etiology from standing height on Xarelto. Presented to [facility] found to have left frontal and interhemispheric subdural hematoma measuring 6 mm without mass effect, as well as concern for acute left rib fractures on personal review of imaging and by comparison with exam most concerning for left 3rd through 7th rib fractures as well as a left scaphoid fx. PLAN: Neuro/Spine: -Neurosurgery consulted, recommend the following: Repeat CT head showed improvement in right frontal SDH. Interhemispheric SDH noted on first CT. CT as above No neurosurgical intervention indicated Continue to hold OAC (xarelto) until OP follow up May start DVT ppx in 48 hrs No need for AED CT head in 1-2 weeks OP Will sign off-info in AVS - Pain control: Tylenol 1gm q8hrs, gabapentin 100mg q12hrs, Oxy 5/10mg prn, Dilaudid for breakthrough - Home Baclofen -changed to HS - Hold home Percocet (Tylenol and Oxy) - Home Buprenorphine patch weekly - Palliative consult - Geriatrics consult -Medications with associated fall risk include: Atenolol - monitor for bradycardia/hypotension Balcofen - takes at HS only, recommend decreasing to HS only here Furosemide - monitor for orthostasis/dehydration Percocet - long-standing med, dose likely reasonable No longer taking gabapentin, amitriptyline at home - Cont Melatonin 3mg HS - APS consult-->rib block complete HEENT: - no concerns Cardiovascular: - Hypotension resolved: SBP 94-141 - Home Atenolol 25mg daily- hold for HR <60 or SBP <100 - BP Goal <160 SBP - Telemetry - Orthostatic BPs negative on 04/23 - 04/23- EKG- A-fib, Qtc 467 ms - Repeat Echo 04/23- LVEF 60% mild, aortic valve stenosis, Left atrium severely dilated -last 02/11/21 echo EF 68% - HOLD Xarelto-->until OP follow up with NSGY - Holding home lasix Pulmonary: Hx COPD, CHF -# Acute left 3rd through 7th rib fractures - Multimodal pain control as above - APS rib block completed - Daily chest x-rays CXR - Pulmonary congestion, small right pleural effusion-monitor - Aggressive pulm toilet with incentive spirometry- pulling 250-500ml on IS -Cont AccuPAP - Home Symbicort-->substitute Dulera - Home Spiriva - 3% nebs Q12 - Duonebs QID and prn #COPD - standard O2 protocol; patient on as needed oxygen at home, O2 goal SpO2 greater than 88% - wears home oxygen at 2L NC intermittently FEN/GI: -Diet: Carb control - Zofran PRN - bowel regimen- miralax daily and senna BID - Home Vit D - Daily BMP : - Estimated Creatinine Clearance: 77 mL/min (A) (by C-G formula based on SCr of 0.46 mg/dL (L)). 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, resolved- now noted gross hematuria 04/24 -04/24 UA- (+) UTI 04/24- Rocephin started -Urology consulted- UA +for infxn - check urine culture (p) - No acute urologic surgical intervention at this time - IV Abx - start ancef - adjust per culture results - obtain PVR - Optimize pain/nausea control - Monitor fevers/hypotension - Remainder of care per primary team - Urology will sign off at this time - follow up outpatient prn - 04/25- CT urogram today- no urinary calculi, hydroureteronephrosis, or renal/bladder mass Heme: - Hgb stable 13.7< 13.8 <13.6 - No transfusions indicated - CBC PRN ID: -Afebrile, mild leukocytosis 111.3< 1.3 <10.1 -04/24 UA (+) UTI- 04/24 started on Rocephin Urine cultures pending - CBC PRN Endo: - Hold home Jardiance - Humalog sliding scale AC&HS - MBS checks AC&HS Lines/Devices: - PIV - L velcro thumb spica splint Prophylaxis: DVT: SCDs Lovenox 30 mg subcutaneous q 12 hours check anti xa level 0100-04/27 Holding home xarelto until OP follow up with NSGY Has DVT PPX been started? Yes If no, why? N/a GI: home Pepcid Pressure Ulcer: reposition Q2 Musculoskeletal: Left shoulder pain-d/w ortho-dedicated L shoulder film ordered #left scaphoid fx- seen by Ortho- no fx - PT/OT- PT recs for IP rehab Ortho consult: Patient is nontender in the left anatomic snuffbox and there is no evidence of acute fracture of the left scaphoid on scaphoid view. She has tenderness with motion of her shoulder. It is unclear if this is referred from her rib fractures or if this is an exacerbation of left shoulder osteoarthritiscausing pain with motion. Regardless, there are no fractures of the proximal left humerus where thepatient is experiencing pain. -No acute intervention for left shoulder pain. Recommend pain management through the primary service. -Patient given left upper extremity sling and left removable thumb spica brace for comfort -There is a sizable right knee hematoma following a fall on Xarelto. There are no associated fractures on right knee x-ray. Patient is nontender on the bony prominences of the right knee. -No acute intervention for a right knee hematoma without fracture. Recommend compressive dressing for comfort and to aid in hematoma resolution. -Weightbearing as tolerated -Activity as tolerated -Ice & elevate -Neurovascular checks -Skin checks -Follow-up outpatient - Pain and medical management per trauma -Orthopaedic surgery will sign off. WB Status: RUE:at LUE: NWB RLE: at LLE: at Is the patient in restraints?: na Medications Reconciled- Yes [x] NO [], why n/a Disposition: Cont care on 3W, dispo planning [1] Current Facility-Administered Medications: acetaminophen (Tylenol) tablet 1,000 mg, 1,000 mg, Oral, q8h, LAVELLE Shaffer CNP, 1,000 mg at 04/26/25 0602 atenolol (Tenormin) tablet 25 mg, 25 mg, Oral, Daily, LAVELLE Shaffer CNP, 25 mg at baclofen (Lioresal) tablet 5 mg, 5 mg, Oral, Nightly, LAVELLE Jones CNP, 5 mg at 211 buprenorphine (Butrans) 5 MCG/HR 5 mcg, 5 mcg, TransDERmal, Weekly, LAVELLE Jones CNP, 5 mcg at 04/24/25 1040 ceFAZolin (Ancef) 1,000 mg in sodium chloride 0.9 % 50 mL IVPB, 1,000 mg, IntraVENous, q8h, Alicia Arredondo DO, Stopped at 04/26/25 0656 cholecalciferol (Vitamin D-3) tablet 2,000 Units, 2,000 Units, Oral, Daily, Victorina Garsia APRN - MARJ, 2,000 Units at 04/26/25 0819 dextrose 5 % infusion, 100 mL/hr, IntraVENous, PRN, Victorina Garsia APRN - MARJ dextrose 50 % solution 12.5 g, 12.5 g, IntraVENous, PRN, Victorina Garsia APRN - MARJ docusate sodium (Colace) capsule 100 mg, 100 mg, Oral, BID, Marjorie Tuttle APRN - MARJ enoxaparin (Lovenox) syringe 30 mg, 30 mg, SubCUTAneous, q12h, Kiara Simms APRN - MARJ, 30 mg at 04/26/25 0826 famotidine (Pepcid) tablet 20 mg, 20 mg, Oral, Daily, Victorina Garsia APRN - RN HEMODIALYSIS, 20 mg at 821 gabapentin (Neurontin) capsule 100 mg, 100 mg, Oral, q12h, Victorina Garsia APRN - RN HEMODIALYSIS, 100 mg at 04/26/25 0820 glucagon (human recombinant) injection 1 mg, 1 mg, IntraMUSCular, PRN, Victorina Garsia APRN - MARJ glucose oral gel 15 g, 15 g, Oral, PRN, Victorina Garsia APRN - [facility] HYDROmorphone (Dilaudid) injection 0.5 mg, 0.5 mg, IntraVENous, q4h PRN, Ninfa Colindres MD, 0.5 mg at 04/25/25 1137 Insulin Lispro (Humalog) injection 0-12 Units, 0-12 Units, SubCUTAneous, TID WC AND Insulin Lispro (Humalog) injection 0-12 Units, 0-12 Units, SubCUTAneous, Nightly, LAVELLE hSaffer CNP ipratropium-albuterol (Duo-Neb) 0.5-2.5 mg/3 mL nebulizer solution 3 mL, 3 mL, Nebulization, q2h PRN, Victorina Garsia APRN - RN HEMODIALYSIS, 3 mL at 04/24/25 0528 ipratropium-albuterol (Duo-Neb) 0.5-2.5 mg/3 mL nebulizer solution 3 mL, 3 mL, Nebulization, BID, Domonique Gonzalez MD, 3 mL at 04/25/25 1321 melatonin tablet 3 mg, 3 mg, Oral, Nightly PRN, LAVELLE Jones CNP mometasone-formoterol (Dulera 100) 100-5 MCG/ACT inhaler 2 puff, 2 puff, Inhalation, BID, LAVELLE Shaffer CNP, 2 puff at 04/26/25 0817 naloxone (Narcan) injection 0.4 mg, 0.4 mg, IntraVENous, PRN, LAVELLE Shaffer CNP ondansetron ODT (Zofran-ODT) disintegrating tablet 4 mg, 4 mg, Oral, q8h PRN OR ondansetron (Zofran) injection 4 mg, 4 mg, IntraVENous, q6h PRN, LAVELLE Shaffer CNP, 4 mg at 04/23/25 0405 oxyCODONE (Roxicodone) immediate release tablet 2.5 mg, 2.5 mg, Oral, q4h PRN OR oxyCODONE (Roxicodone) immediate release tablet 5 mg, 5 mg, Oral, q4h PRN, LAVELLE Noel CNP, 5 mg at 04/26/25 0601 polyethylene glycol (PEG) 3350 (Miralax) packet 17 g, 17 g, Oral, BID, LAVELLE Castano CNP sennosides (Senokot) tablet 17.2 mg, 2 tablet, Oral, BID, LAVELLE Shaffer CNP, 17.2 mg at 04/26/25 0820 sodium chloride 0.9% (NS) flush 30 mL, 30 mL, IntraVENous, q6h, Victorina Garsia APRN - [facility], 30 mL at 04/26/25 0614 sodium chloride 0.9% (NS) flush 30 mL, 30 mL, IntraVENous, PRN, Victorina Garsia APRN - [facility] sodium chloride 0.9% (NS) flush 30 mL, 30 mL, IntraVENous, PRN, LAVELLE Shaffer CNP sodium chloride 3 % hypertonic nebulizer solution 4 mL, 4 mL, Nebulization, q12h, LAVELLE Shaffer CNP, 4 mL at 04/25/251999 tiotropium (Spiriva Respimat) 2.5 MCG/ACT inhaler 2 puff, 2 puff, Inhalation, Daily, LAVELLE Shaffer CNP, 2 puff at 04/26/25 0816 [2] Patient Active Problem List Diagnosis Pulmonary fibrosis (HCC) Lung nodule Chronic obstructive pulmonary disease (HCC) CONCEPCION (obstructive sleep apnea) Psoriatic arthritis (HCC) Acute subdural hematoma (HCC) Fall Closed fracture of multiple ribs of left side with routine healing Closed fracture of left wrist Hematoma Cosigned by Domonique Gonzalez MD at 04/27/2025 8:01 AM EDT Associated attestation - Domonique Gonzalez MD - 04/27/2025 8:01 AM EDT ~~~~~~~~~~~~~~~~~~~~~~~~~~~~~~~~~~~~~~~~~~~~~~~~~~~~~~~~~~~~~ ATTENDING ADDENDUM Problem List[1] I have personally performed a face to face diagnostic evaluation on this patient. I have reviewed and agree with the care plan as documented above by my SHUTTLE DRIVER/KILEY. I personally discussed the review of systems and interviewed the patient along with performing a physical examination. In addition, I discussed the patient's condition and treatment options with him/her when possible. All of the patient's questions were answered and family updated when appropriate and possible. I I performed a physical exam and ROS on the same date of service as above. My findings agree with the above note except for any details corrected below. A complete review of systems was obtained and is negative except as stated in HPI. HPI: 85 y.o. female status post fall from standing height the incident happened around afternoon on 04/22.The patient was walking through her living room after folding some laundry and fell to the ground striking her right knee and left chest. She is unable to identify the cause of her fall however she does report that she was feeling somewhat dizzy and had a headache throughout the day preceding the fall. She denies any loss of consciousness. Her pain is currently 8/10. She is on Xarelto for A-fib. Patient initially presented to [facility] and was found to have a subdural hematoma 6 mm. She was givenPCC prior to transfer for direct admission to T2 ICU. Imaging reviewed and independently interpreted: CT chest reviewed -multiple acute/chronic rib fractures --> suspect acute 3 through 7 rib fractures anterior on the L CTH - left frontal and interhemispheric subdural hematoma measuring 6 mm without mass effect CT urogram - Mildly enlarged, calcified left iliac nodes, nonspecific but may be due to prior granulomatous disease. - Moderate stool throughout the colon. Consider constipation. Problem list: Acute, acute on chronic, unstable or uncontrolled chronic problems/diagnoses: Acute traumatic left frontal and anterior hemispheric subdural hematoma 6mm, no mass effect Acute traumatic left 3 through 7 rib fractures Left shoulder osteoarthritis and a right knee hematoma Acute traumatic pain ?Pre-syncopal fall Constipation Incidental - Chronic compression fractures of T8, L1 and L2 Stable chronic problems, affecting patient care: Past Medical History Diagnosis Date Arthritis Atrial fibrillation (HCC) Chronic obstructive pulmonary disease (HCC) 08/24/2017 Chronic pain Congestive heart failure (CHF) (HCC) GERD (gastroesophageal reflux disease) Hypertension Osteoarthritis Pain management Psoriasis 24h: Complains of L rib pain - APS consult for rib block - gabapentin for pain control 100 mg BID - complains of L chest pain 2/2 rib fractures - improved pain in Ribs - wean O2 as able Complains of L shoulder pain - discuss with Ortho SBP 113-157 Factor Xa 0.4 ppx Orthostatics neg Hgb stable at 13.7 DC labs Urology started ancef --> change to rocephin Plan: Neurological system #Acute traumatic left frontal and anterior hemispheric subdural hematoma 6mm, no mass effect - Patient received PCC at the OSH for Xarelto - No seizure prophylaxis at this time - Repeat CT in the morning - Elevate head of bed 30 degrees -No neurosurgical intervention indicated -Continue to hold OAC until OP follow up -May start DVT ppx in 48 hrs -No need for AED -CT head in 1-2 weeks OP # Chronic pain - Home amitriptyline --> no longer taking - Home baclofen nightly - home butrans #Acute pain - Multimodal pain control # At risk for delirium/acute encephalopathy - Delirium precautions: increase activity, limit nighttime disturbances, and avoid anticholinergic meds, benzos, etc Circulatory system # Atrial fibrillation, hypertension, HFpEF - 02/11/21 echo EF 68% - Hold Xarelto - atenolol 25 mg - Home Jardiance 10 mg - Echo EF 60% - SBP 110-160 - PRN anti-htn med - HOLD home Lasix 20 mg as needed edema Respiratory system # COPD # Acute traumatic left 3 through 7 rib fractures - Home Symbicort -> substitute Dulera - O2 protocol - Aggressive pulmonary hygiene Gastrointestinal system # GERD -Home Pepcid #Constipation - Bowel regimen Renal function - Strict I/Os #Gross hematuria - Labs and imaging reviewed - trend daily labs - Cr @baseline - UA +for infxn - check urine culture (p) - No acute urologic surgical intervention at this time - IV Abx - start ancef - adjust per culture results - obtain PVR - Optimize pain/nausea control - Monitor fevers/hypotension Immunologic system [x] Mupirocin for empiric MRSA decolonization x5 days - Monitor for fevers Hematologic system - Monitor hemoglobin Endocrine system - Monitor glucose Integumentary system (GI and cutaneous) - Skin checks # Right knee hematoma - CTM Musculoskeletal system - PTOT #left shoulder osteoarthritis and a right knee hematoma - Orthopedic consultation - Nonweightbearing left upper extremity -Patient is nontender in the left anatomic snuffbox and there is no evidence of acute fracture of the left scaphoid on scaphoid view. She has tenderness with motion of her shoulder. It is unclear if this is referred from her rib fractures or if this is an exacerbation of left shoulder osteoarthritis causing pain with motion. Regardless, there are no fractures of the proximal left humerus where the patient is experiencing pain. -No acute intervention for left shoulder pain. Recommend pain management through the primary service. -Patient given left upper extremity sling and left removable thumb spica brace for comfort -There is a sizable right knee hematoma following a fall on Xarelto. There are no associated fractures on right knee x-ray. Patient is nontender on the bony prominences of the right knee. -No acute intervention for a right knee hematoma without fracture. Recommend compressive dressing for comfort and to aid in hematoma resolution. -Weightbearing as tolerated -Activity as tolerated -Ice & elevate -Neurovascular checks -Skin checks -Follow-up outpatient Ppx - DVT prophylaxis: SCDs, lovenox - GI prophylaxis: []PPI, [x]Pepcid MEDS: Scheduled PRN Scheduled Meds[2] PRN Meds[3] Continuous Continuous Meds[4] Patient evaluated on 04/26/2025 Level of Medical Decision Making: risk of morbidity from additional diagnostic testing or treatment []High [x]Moderate []Low Complexity: Acute, complicated injury (MOD) Personally Reviewed/Independently interpreted patient's: [x]Epic notes: []Operations Superintendent notes, []Nursing notes, []Case management/SW []Radiology studies: []CT, []CXR, []AXR, []Pelvis XR [x]Labs: [x]CBC, [x]BMP, []CMP/LFTs, []PT/INR []EKG []Ordering tests []Other Discussed/ With: [x]Patient/Family: []Spouse, []Son/Daughter, []Mother/Father, []Friend []RN []Consultants: []Ortho, []Geriatrics, []Palliative, []PRS, []Nephro, []NCC, []NSG, []Cards IP CONSULT TO WOUND PREVENTION IP CONSULT TO ORTHOPAEDIC SURGERY IP CONSULT TO GERIATRICS IP CONSULT TO PALLIATIVE CARE IP CONSULT TO NEUROSURGERY IP CONSULT TO ANESTHESIOLOGY - ACUTE PAIN SERVICE IP CONSULT TO UROLOGY []SW/TCC []Other Time was spent, Reviewing medical record including recent tests and results Ordering prescription medications/tests and procedures Communicating results to the patient/family/caregiver Counseling/educating the patient/family/caregiver Documenting clinical information the patient's electronic record Coordination of care for the patient Performing a medical appropriate exam and evaluation ~~~~~~~~~~~~~~~~~~~~~~~~~~~~~~~~~~~~~~~~~~~~~~~~~~~~~~~~~~~~~ This note may have been dictated using [employer] Medical Practice Edition 2.6 and/or [employer] Voice Recognition Feature. The document was proofread; however, unrecognized voice recognition ichthyologist errors may be present. [1] Patient Active Problem List Diagnosis Pulmonary fibrosis (HCC) Lung nodule Chronic obstructive pulmonary disease (HCC) CONCEPCION (obstructive sleep apnea) Psoriatic arthritis (HCC) Acute subdural hematoma (HCC) Fall Closed fracture of multiple ribs of left side with routine healing Closed fracture of left wrist Hematoma [2] acetaminophen, 1,000 mg, Oral, q8h atenolol, 25 mg, Oral, Daily baclofen, 5 mg, Oral, Nightly buprenorphine, 5 mcg, TransDERmal, Weekly ceFAZolin, 1,000 mg, IntraVENous, q8h cholecalciferol, 2,000 Units, Oral, Daily docusate sodium, 100 mg, Oral, BID enoxaparin, 30 mg, SubCUTAneous, q12h famotidine, 20 mg, Oral, Daily gabapentin, 100 mg, Oral, q12h insulin lispro, 0-12 Units, SubCUTAneous, TID WC And insulin lispro, 0-12 Units, SubCUTAneous, Nightly ipratropium-albuterol, 3 mL, Nebulization, 2 times per day mometasone-formoterol, 2 puff, Inhalation, BID polyethylene glycol (PEG) 3350, 17 g, Oral, BID sennosides, 2 tablet, Oral, BID sodium chloride 0.9%, 30 mL, IntraVENous, q6h sodium chloride, 4 mL, Nebulization, q12h tiotropium, 2 puff, Inhalation, Daily [3] PRN medications: dextrose, dextrose, glucagon (rDNA), glucose, ipratropium- albuterol, melatonin, naloxone, ondansetron ODT OR ondansetron, oxyCODONE OR oxyCODONE, sodium chloride 0.9%, sodium chloride 0.9% [4] * Marlo Palmer, PT - 04/25/2025 1:36 PM EDT Images from the original note were not included. PHYSICAL THERAPY [facility] Treatment Note Name/MRN: Lesli Rosales ([id number]) Date of : 1940 Age: 85 y.o. Room/Bed: 3[facility] A Discharge Recommendation: IP Rehab Equipment Needed: No Assessment Pt tolerated treatment session fair. Pt limited by rib and L shoulder pain on this date. Pt performed bed mobility with Mod assist. Pt declined out of bed mobility on this date but was agreeable to sitting EOB and BLE exercises. Pt with high PLOF. Recommend discharge to IP Rehab to improve strength, balance, activity tolerance, and mobility prior to return home. Subjective Pt supine in bed upon arrival and is agreeable to PT treatment session with education and encouragement. RN administered pain medication prior to mobility. RN okayed session. Pain: 0-10 pain scale: 8/10 Location: L shoulder/ribs Medical Precautions: No active isolations Proper PPE donned/doffed in accordance with facility standards. Fall Risk: Curry Fall Risk Score: 85 (Low Risk) Curry Fall Risk Score: 85 (High Risk) Precautions/Restrictions: Lines/Drains/Airways: O2, external catheter, SPO2 Per order in EMR, pt is NWB LUE. Sling donned on LUE upon arrival and remained donned during session. L wrist brace donned as well. WBAT RLE per note. Overall Cognitive Status: Exceptions - Following commands: follows one step commands consistently - Initiation: requires cues for some - Sequencing: requires cues for some Overall Orientation Status: Oriented x4 Family/Caregiver Present: none Objective Bed Mobility Supine to sit: Mod Assist Sit to supine: Mod Assist Max assist for supine scooting towards HOB. Cues for sequencing when performing supine to sit. Pt sat EOB for ~2 minutes. Pt requesting to return to supine due to increased pain with mobility. Pt declined trial of transfers on this date. Balance During Session: Posture: fair Sitting - Static: Contact Guard Sitting - Dynamic: Contact Guard Mild GOODWIN noted with mobility. SPO2 84-96% during session. Cues for pursed lip breathing. Exercises Pt performed AAROM/AROM BLE exercises in supine to increase strength and activity tolerance needed to improve performance with all mobility. Verbal and tactile cues for proper form. Quad sets: 1x15 reps Ankle pumps: 1x15 reps SAQs: 1x15 reps Hip abduction/adduction: 1x15 reps Heel slides: 1x15 reps SLRs LLE: 1x10 reps Plan Continue acute PT per plan of care. Safety/Education Safety Safety Devices in place: call light within reach, left in bed, and no alarms engaged upon entry Educated pt on use of call light and to have staff assistance for mobility. Pt verbalized understanding. Restraints: No Education Education Given To: patient Education Provided: PT Role, Precautions, Benefits of Increasing Activity, and Breathing Techniques, bed mobility Education Method: Verbal Barriers to Learning: None Education Outcome: Verbalized Understanding and Continued Education Needed Outcome Measures AM-PAC AM-PAC Inpatient Mobility Raw Score (No Stairs) : 10 JH-HLM JH-HLM Score: Sat at edge of bed Goals Patient Stated Goal: to decrease pain Encounter Problems Encounter Problems (Active) Balance Patient will maintain dynamic standing balance for 3 minutes with CGA in order to demonstrate decreased risk of falling. (Not Addressed) Start: 04/23/25 Expected End: 05/14/25 Mobility Patient will ambulate 30 feet with CGA and rolling walker in order to improve safety and independence with mobility. (Not Addressed) Start: 04/23/25 Expected End: 05/14/25 Transfers Patient will perform bed mobility with CGA in order to improve independence and prepare for out of bed mobility. (Progressing) Start: 04/23/25 Expected End: 05/14/25 Patient will complete sit to stand transfer with CGA to wheeled walker in order to improve safety and prepare for out of bed mobility. (Not Addressed) Start: 04/23/25 Expected End: 05/14/25 Therapy Time Individual Co-treatment Time In 1134 Time Out 1201 Minutes 27 Timed Code Treatment Minutes: 27 Minutes (1 unit TP, 1 unit TA) Marlo Palmer, PT * Kiara Simms, LAVELLE - RN HEMODIALYSIS - 04/25/2025 6:42 AM EDT Images from the original note were not included. Daily Trauma Progress Note ROB 04/25/2025 6:42 AM Admit Date: 04/22/2025 Post Trauma Day 3 Fall of unknown etiology HISTORY OF TRAUMATIC EVENT: 85 y.o. female status post fall from standing height the incident happened around afternoon on 04/22.The patient was walking through her living room after folding some laundry and fell to the ground striking her right knee and left chest. She is unable to identify the cause of her fall however she does report that she was feeling somewhat dizzy and had a headache throughout the day preceding the fall. She denies any loss of consciousness. Her pain is currently 8/10. She is on Xarelto for A-fib. Patient initially presented to [facility] and was found to have a subdural hematoma 6 mm. She was givenPCC prior to transfer for direct admission to T2 ICU. INJURIES: - Left frontal and anterior hemispheric SDH 6mm, no mass effect - Left 3 through 7 rib fractures - Left wrist pain - Right knee hematoma - Acute traumatic pain Imaging reviewed and independently interpreted: CT chest reviewed -multiple acute/chronic rib fractures --> suspect acute 3 through 7 rib fractures anterior on the L CTH - left frontal and interhemispheric subdural hematoma measuring 6 mm without mass effect PROCEDURES: none INCIDENTAL FINDINGS: Chronic compression fractures of T8, L1 and L2 Mildly enlarged, calcified left iliac nodes may be due to prior granulomatous disease CHIEF COMPLAINT: L shoulder pain Headache R knee pain L rib pain PREVIOUS 24 HOUR EVENTS: - pain control -Urology consulted for hematuria Consults: IP CONSULT TO WOUND PREVENTION IP CONSULT TO ORTHOPAEDIC SURGERY IP CONSULT TO GERIATRICS IP CONSULT TO PALLIATIVE CARE IP CONSULT TO NEUROSURGERY IP CONSULT TO ANESTHESIOLOGY - ACUTE PAIN SERVICE IP CONSULT TO UROLOGY MEDICATIONS: Current Medications[1] ARE THERE PERTINENT UPDATES TO PAST,FAMILY, OR SOCIAL HISTORY?: No Subjective: Patient reports pain to left shoulder and ribs. Plan for rib block today. Appetite fair. Denies fever, chills, N/V. Review of Systems Constitutional: Positive for activity change. HENT: Negative. Eyes: Negative. Respiratory: Positive for shortness of breath (with excertion). Cardiovascular: Positive for chest pain (L rib pain). Gastrointestinal: Negative. Genitourinary: Positive for hematuria. Musculoskeletal: Positive for arthralgias, gait problem, joint swelling and myalgias. Skin: Positive for wound (R knee abrasion). Neurological: Positive for dizziness (intermittent) and headaches. Negative for facial asymmetry, speech difficulty, weakness and light-headedness. Hematological: Bruises/bleeds easily. Psychiatric/Behavioral: Negative for agitation, behavioral problems and confusion. PC-PTSD-5 Had nightmares about the event(s) or thought about the event(s) when you did not want to? No 2. Tried hard not to think about the event(s) or went out of your way to avoid situations that reminded you of the event(s)? No 3. Been constantly on guard, watchful, or easily startled? No 4. Amorita numb or detached from people, activities, or your surroundings? No 5. Amorita guilty or unable to stop blaming yourself or others for the event(s) or any problems the event(s) may have caused? No If yes to 3 or more, place CLP consult PHQ In the last 2 weeks have you had: Little interest or pleasure in doing things No Been feeling down, depressed, or hopeless No If greater then 0, place CLP consult Date PHQ completed: 04/23/25 Objective: Patient Vitals for the past 24 hrs: BP Temp Temp src Pulse Resp SpO2 Weight 04/25/25 0624 118/68 36.5 C (97.7 F) Temporal 66 20 94 % -- 04/25/25 0506 -- -- -- -- -- -- 65.1 kg (143 lb 8.3 oz) 04/25/25 0133 141/82 36.4 C (97.5 F) Temporal 64 20 95 % -- 04/24/25 2134 101/56 36.6 C (97.9 F) Temporal 67 16 96 % -- 04/24/25 2055 -- -- -- 71 -- 96 % -- 04/24/25 1437 112/59 36.7 C (98.1 F) Temporal 75 19 95 % -- 04/24/25 1145 -- -- -- 78 18 98 % -- 04/24/25 1033 102/54 36.8 C (98.2 F) Temporal 81 17 93 % -- 04/24/25 0817 -- -- -- 79 -- 96 % -- 04/24/25 0805 -- -- -- 78 18 96 % -- 04/24/25 0729 110/76 -- -- -- -- -- -- 04/24/25 0720 94/50 (!) 35.7 C (96.3 F) Temporal 84 17 95 % -- Intake/Output Summary (Last 24 hours) at 04/25/2025 0642 Last data filed at 04/25/2025 0507 Gross per 24 hour Intake -- Output 550 ml Net -550 ml I/O this shift: In: - Out: 550 [Urine:550] 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 Constitutional: General: She is not in acute distress. Appearance: Normal appearance. She is not ill-appearing or toxic-appearing. HENT: Head: Normocephalic. Comments: Ecchymosis R temporal region Right Ear: External ear normal. Left Ear: External ear normal. Nose: Nose normal. Mouth/Throat: Mouth: Mucous membranes are moist. Eyes: Extraocular Movements: Extraocular movements intact. Conjunctiva/sclera: Conjunctivae normal. Cardiovascular: Rate and Rhythm: Normal rate. Pulses: Normal pulses. Pulmonary: Effort: Pulmonary effort is normal. No respiratory distress. Chest: Chest wall: Tenderness present. Abdominal: General: Bowel sounds are normal. There is no distension. Palpations: Abdomen is soft. Tenderness: There is no abdominal tenderness. Musculoskeletal: General: Swelling, tenderness and signs of injury present. Cervical back: Normal range of motion and neck supple. No tenderness. Comments: R knee hematoma with abrasion L thumb spica velcro splint Limited ROM LUE-->L shoulder pain, sling in place Skin: General: Skin is warm and dry. Capillary Refill: Capillary refill takes 2 to 3 seconds. Findings: Bruising present. Neurological: General: No focal deficit present. Mental Status: She is alert and oriented to person, place, and time. Mental status is at baseline. Cranial Nerves: No cranial nerve deficit. Psychiatric: Mood and Affect: Mood normal. Behavior: Behavior normal. Sutures or krissy? No O2: 4L NC, wean to keep 88-92% (wears 2L NC intermittently at home) Data Review Data CBC with Differential: Lab Results Component Value Date WBC 11.3 (H) 04/25/2025 RBC 4.13 04/25/2025 HGB 13.7 04/25/2025 HCT 44.3 04/25/2025 PLT 173 04/25/2025 CMP: Lab Results Component Value Date NA 141 04/24/2025 K 4.2 04/24/2025 CL 108 (H) 04/24/2025 CO2 28 04/24/2025 BUN 19 04/24/2025 CREATININE 0.51 (L) 04/24/2025 GLUCOSE 91 04/24/2025 CALCIUM 8.7 (L) 04/24/2025 BMP: Hepatic Function Panel:Ionized Calcium: No components found for: "IONCA" Magnesium: No results found for: "MG" Phosphorus: No results found for: "PHOS" PT/INR: No results found for: "PROTIME", "INR" PTT: No results found for: "APTT"[APTT Last 3 Troponin: No results found for: "TROPONINI" Urine Culture: No components found for: "CURINE" Blood Culture: No components found for: "CBLOOD", "CFUNGUSBL" Blood Culture from Central Line: No components found for: "CBLOODLN" Stool Culture: No components found for: "CSTOOL" Sputum Culture: No components found for: "CSPUTUM" Sputum Culture for AFB: No components found for: "CAFBSM" Wound Culture: na Radiology: XR hand 1 or 2 views left Result Date: 04/23/2025 Patient Name: LESLI ROSALES : 1940 Exam Date/Time: 04/23/2025 02:22 Procedure: XR HAND 1-2 VIEWS LEFT Ordering Provider: GONZALEZ KATIE Reason For Exam: trauma LEFT HAND: CLINICAL INDICATION: trauma. Injury with pain TECHNIQUE: PA, Lat COMPARISON: None. FINDINGS: Artifacts overlie the hand and wrist. There is no fracture or dislocation. Minimal spurring and narrowing is noted about the DIP and PIP joints along with the firstcarpometacarpal joint. No bone lesion is identified. There is no other soft tissue abnormality. No acute abnormality. Minimal degree of osteoarthritis. Report Dictated on Electronically Signed By: Harpreet Hood MD Electronically Signed Date/Time: 04/23/2025 3:16 AM EDT Problem List[2] ASSESSMENT: 85-year-old female status post fall of uncertain etiology from standing height on Xarelto. Presented to [facility] found to have left frontal and interhemispheric subdural hematoma measuring 6 mm without mass effect, as well as concern for acute left rib fractures on personal review of imaging and by comparison with exam most concerning for left 3rd through 7th rib fractures as well as a left scaphoid fx. PLAN: Neuro/Spine: -Neurosurgery consulted, recommend the following: Repeat CT head showed improvement in right frontal SDH. Interhemispheric SDH noted on first CT. CT as above No neurosurgical intervention indicated Continue to hold OAC (xarelto) until OP follow up May start DVT ppx in 48 hrs No need for AED CT head in 1-2 weeks OP Will sign off-info in AVS - Pain control: Tylenol 1gm q8hrs, gabapentin 100mg q12hrs, Oxy 5/10mg prn, Dilaudid for breakthrough - Home Baclofen -changed to HS - Hold home Percocet (Tylenol and Oxy) - Home Buprenorphine patch weekly - Palliative consult - Geriatrics consult -Medications with associated fall risk include: Atenolol - monitor for bradycardia/hypotension Balcofen - takes at HS only, recommend decreasing to HS only here Furosemide - monitor for orthostasis/dehydration Percocet - long-standing med, dose likely reasonable No longer taking gabapentin, amitriptyline at home - Cont Melatonin 3mg HS - APS consult-->rib block today HEENT: - no concerns Cardiovascular: - Hypotension resolved: SBP 94-141 - Home Atenolol 25mg daily- hold for HR <60 or SBP <100 - BP Goal <160 SBP - Telemetry - Orthostatic BPs negative on 04/23 - 04/23- EKG- A-fib, Qtc 467 ms - Repeat Echo 04/23- LVEF 60% mild, aortic valve stenosis, Left atrium severely dilated -last 02/11/21 echo EF 68% - HOLD Xarelto-->until OP follow up with NSGY - Holding home lasix Pulmonary: Hx COPD, CHF -# Acute left 3rd through 7th rib fractures - Multimodal pain control as above - APS reconsulted for rib block today - Daily chest x-rays CXR today- Pulmonary congestion, small right pleural effusion - Aggressive pulm toilet with incentive spirometry- pulling 250-500ml on IS -Cont AccuPAP - Home Symbicort-->substitute Dulera - Home Spiriva - 3% nebs Q12 - Duonebs QID and prn #COPD - standard O2 protocol; patient on as needed oxygen at home, O2 goal SpO2 greater than 88% - wears home oxygen at 2L NC intermittently FEN/GI: -Diet: Carb control - Zofran PRN - bowel regimen- miralax daily and senna BID - Home Vit D - Daily BMP= difficult stick with multiple attempts. Will post pone until AM 04/26 : - Estimated Creatinine Clearance: 69.1 mL/min (A) (by C-G formula based on SCr of 0.51 mg/dL (L)). 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, resolved- now noted gross hematuria 04/24 -04/24 UA- (+) UTI 04/24- Rocephin started -Urology consulted- UA +for infxn - check urine culture (p) - No acute urologic surgical intervention at this time - IV Abx - start ancef - adjust per culture results - obtain PVR - Optimize pain/nausea control - Monitor fevers/hypotension - Remainder of care per primary team - Urology will sign off at this time - follow up outpatient prn - 04/25- CT urogram today- no urinary calculi, hydroureteronephrosis, or renal/bladder mass Heme: - Hgb stable 13.7< 13.8 <13.6 - No transfusions indicated - CBC PRN ID: -Afebrile, mild leukocytosis 111.3< 1.3 <10.1 -04/24 UA (+) UTI- 04/24 started on Rocephin Urine cultures pending - CBC PRN Endo: - Hold home Jardiance - Humalog sliding scale AC&HS - MBS checks AC&HS Lines/Devices: - PIV - L velcro thumb spica splint Prophylaxis: DVT: SCDs Will start lovenox 30mg q12hrs this evening post block. Holding home xarelto until OP follow up with NSGY Has DVT PPX been started? No If no, why? Patient with Acute Head Bleed GI: home Pepcid Pressure Ulcer: reposition Q2 Musculoskeletal: #left scaphoid fx- seen by Ortho- no fx - PT/OT- PT recs for IP rehab Ortho consult: Patient is nontender in the left anatomic snuffbox and there is no evidence of acute fracture of the left scaphoid on scaphoid view. She has tenderness with motion of her shoulder. It is unclear if this is referred from her rib fractures or if this is an exacerbation of left shoulder osteoarthritiscausing pain with motion. Regardless, there are no fractures of the proximal left humerus where thepatient is experiencing pain. -No acute intervention for left shoulder pain. Recommend pain management through the primary service. -Patient given left upper extremity sling and left removable thumb spica brace for comfort -There is a sizable right knee hematoma following a fall on Xarelto. There are no associated fractures on right knee x-ray. Patient is nontender on the bony prominences of the right knee. -No acute intervention for a right knee hematoma without fracture. Recommend compressive dressing for comfort and to aid in hematoma resolution. -Weightbearing as tolerated -Activity as tolerated -Ice & elevate -Neurovascular checks -Skin checks -Follow-up outpatient - Pain and medical management per trauma -Orthopaedic surgery will sign off. WB Status: RUE:at LUE: NWB RLE: at LLE: at Is the patient in restraints?: na Medications Reconciled- Yes [x] NO [], why Disposition: Cont care on 3W, Pain control. Aggressive pulmonary hygiene with wean as tolerated forsats 88-92%. APS for rib block today. DVT ppx post block today, Follow up Culture sensitivities, cont IV Abx. PT/OT recs pending for dispo planning [1] Current Facility-Administered Medications: acetaminophen (Tylenol) tablet 1,000 mg, 1,000 mg, Oral, q8h, LAVELLE Shaffer CNP, 1,000 mg at 04/25/25 0439 atenolol (Tenormin) tablet 25 mg, 25 mg, Oral, Daily, LAVELLE Shaffer CNP, 25 mg at 817 baclofen (Lioresal) tablet 5 mg, 5 mg, Oral, Nightly, LAVELLE Jones CNP, 5 mg at buprenorphine (Butrans) 5 MCG/HR 5 mcg, 5 mcg, TransDERmal, Weekly, LAVELLE Jones CNP, 5 mcg at 04/24/25 1040 ceFAZolin (Ancef) 1,000 mg in sodium chloride 0.9 % 50 mL IVPB, 1,000 mg, IntraVENous, q8h, Alicia Arredondo DO, Stopped at 04/25/25 0206 cholecalciferol (Vitamin D-3) tablet 2,000 Units, 2,000 Units, Oral, Daily, Victorina Garsia APRN - RN HEMODIALYSIS, 2,000 Units at 04/24/25 0817 dextrose 5 % infusion, 100 mL/hr, IntraVENous, PRN, Victorina Garsia APRN - RN HEMODIALYSIS dextrose 50 % solution 12.5 g, 12.5 g, IntraVENous, PRN, Victorina Chengon, SHUTTLE DRIVER - RN HEMODIALYSIS famotidine (Pepcid) tablet 20 mg, 20 mg, Oral, Daily, Victorina Garsia APRN - RN HEMODIALYSIS, 20 mg at 817 gabapentin (Neurontin) capsule 100 mg, 100 mg, Oral, q12h, Victorina Garsia SHUTTLE DRIVER - RN HEMODIALYSIS, 100 mg at 04/24/251999 glucagon (human recombinant) injection 1 mg, 1 mg, IntraMUSCular, PRN, Victorina Garsia SHUTTLE DRIVER - RN HEMODIALYSIS glucose oral gel 15 g, 15 g, Oral, PRN, Victorina Chengon, SHUTTLE DRIVER - RN HEMODIALYSIS HYDROmorphone (Dilaudid) injection 0.5 mg, 0.5 mg, IntraVENous, q4h PRN, Ninfa Colindres MD, 0.5 mg at 04/25/25 0439 Insulin Lispro (Humalog) injection 0-12 Units, 0-12 Units, SubCUTAneous, TID WC AND Insulin Lispro (Humalog) injection 0-12 Units, 0-12 Units, SubCUTAneous, Nightly, Victorina Garsia SHUTTLE DRIVER - RN HEMODIALYSIS ipratropium-albuterol (Duo-Neb) 0.5-2.5 mg/3 mL nebulizer solution 3 mL, 3 mL, Nebulization, q2h PRN, Victorina Garsia SHUTTLE DRIVER - RN HEMODIALYSIS, 3 mL at 04/24/25 0528 ipratropium-albuterol (Duo-Neb) 0.5-2.5 mg/3 mL nebulizer solution 3 mL, 3 mL, Nebulization, BID, Domonique Gonzalez MD melatonin tablet 3 mg, 3 mg, Oral, Nightly PRN, LAVELLE Jones CNP mometasone-formoterol (Dulera 100) 100-5 MCG/ACT inhaler 2 puff, 2 puff, Inhalation, BID, LAVELLE Shaffer CNP, 2 puff at 04/24/251956 naloxone (Narcan) injection 0.4 mg, 0.4 mg, IntraVENous, PRN, LAVELLE Shaffer CNP ondansetron ODT (Zofran-ODT) disintegrating tablet 4 mg, 4 mg, Oral, q8h PRN OR ondansetron (Zofran) injection 4 mg, 4 mg, IntraVENous, q6h PRN, LAVELLE Shaffer CNP, 4 mg at 04/23/25 0405 oxyCODONE (Roxicodone) immediate release tablet 10 mg, 10 mg, Oral, q4h PRN, Ninfa Colindres MD, 10 mg at 04/25/25 0155 oxyCODONE (Roxicodone) immediate release tablet 5 mg, 5 mg, Oral, q4h PRN, 5 mg at 04/24/25 1040 OR [DISCONTINUED] oxyCODONE (Roxicodone) immediate release tablet 10 mg, 10 mg, Oral, q4h PRN, Marsha Skinner MD, 10 mg at 04/23/25 0402 polyethylene glycol (PEG) 3350 (Miralax) packet 17 g, 17 g, Oral, Daily, LAVELLE Shaffer CNP, 17 g at 04/24/25 0816 sennosides (Senokot) tablet 17.2 mg, 2 tablet, Oral, BID, LAVELLE Shaffer CNP, 17.2 mg at 04/24/25 2000 sodium chloride 0.9% (NS) flush 30 mL, 30 mL, IntraVENous, q6h, LAVELLE Shaffer CNP, 30 mL at 04/24/25 0825 sodium chloride 0.9% (NS) flush 30 mL, 30 mL, IntraVENous, PRN, Victorina Garsia APRN - RN HEMODIALYSIS sodium chloride 0.9% (NS) flush 30 mL, 30 mL, IntraVENous, PRN, LAVELLE Shaffer CNP sodium chloride 3 % hypertonic nebulizer solution 4 mL, 4 mL, Nebulization, q12h, LAVELLE Shaffer CNP, 4 mL at 04/24/252054 tiotropium (Spiriva Respimat) 2.5 MCG/ACT inhaler 2 puff, 2 puff, Inhalation, Daily, LAVELLE Shaffer CNP, 2 puff at 04/24/25 08 [2] Patient Active Problem List Diagnosis Pulmonary fibrosis (HCC) Lung nodule Chronic obstructive pulmonary disease (HCC) CONCEPCION (obstructive sleep apnea) Psoriatic arthritis (HCC) Acute subdural hematoma (HCC) Fall Closed fracture of multiple ribs of left side with routine healing Closed fracture of left wrist Hematoma Cosigned by Domonique Gonzalez MD at 04/25/2025 2:10 PM EDT Associated attestation - Domonique Gonzalez MD - 04/25/2025 2:10 PM EDT ~~~~~~~~~~~~~~~~~~~~~~~~~~~~~~~~~~~~~~~~~~~~~~~~~~~~~~~~~~~~~ ATTENDING ADDENDUM Problem List[1] I have personally performed a face to face diagnostic evaluation on this patient. I have reviewed and agree with the care plan as documented above by my SHUTTLE DRIVER/KILEY. I personally discussed the review of systems and interviewed the patient along with performing a physical examination. In addition, I discussed the patient's condition and treatment options with him/her when possible. All of the patient's questions were answered and family updated when appropriate and possible. I I performed a physical exam and ROS on the same date of service as above. My findings agree with the above note except for any details corrected below. A complete review of systems was obtained and is negative except as stated in HPI. HPI: 85 y.o. female status post fall from standing height the incident happened around afternoon on 04/22.The patient was walking through her living room after folding some laundry and fell to the ground striking her right knee and left chest. She is unable to identify the cause of her fall however she does report that she was feeling somewhat dizzy and had a headache throughout the day preceding the fall. She denies any loss of consciousness. Her pain is currently 8/10. She is on Xarelto for A-fib. Patient initially presented to [facility] and was found to have a subdural hematoma 6 mm. She was givenPCC prior to transfer for direct admission to T2 ICU. Imaging reviewed and independently interpreted: CT chest reviewed -multiple acute/chronic rib fractures --> suspect acute 3 through 7 rib fractures anterior on the L CTH - left frontal and interhemispheric subdural hematoma measuring 6 mm without mass effect CT urogram - Mildly enlarged, calcified left iliac nodes, nonspecific but may be due to prior granulomatous disease. - Moderate stool throughout the colon. Consider constipation. Problem list: Acute, acute on chronic, unstable or uncontrolled chronic problems/diagnoses: Acute traumatic left frontal and anterior hemispheric subdural hematoma 6mm, no mass effect Acute traumatic left 3 through 7 rib fractures Left shoulder osteoarthritis and a right knee hematoma Acute traumatic pain ?Pre-syncopal fall Constipation Incidental - Chronic compression fractures of T8, L1 and L2 Stable chronic problems, affecting patient care: Past Medical History Diagnosis Date Arthritis Atrial fibrillation (HCC) Chronic obstructive pulmonary disease (HCC) 08/24/2017 Chronic pain Congestive heart failure (CHF) (HCC) GERD (gastroesophageal reflux disease) Hypertension Osteoarthritis Pain management Psoriasis 24h: Complains of L rib pain - APS consult for rib block - gabapentin for pain control 100 mg BID - complains of L chest pain 2/2 rib fractures SBP 100-141 Start lovenox 30 BID - check factor Xa after 3rd dose Echo - EF 60% Check orthostatics Afebrile Hgb 13.7 from 13.8 Urology started ancef --> change to rocephin Plan: Neurological system #Acute traumatic left frontal and anterior hemispheric subdural hematoma 6mm, no mass effect - Patient received PCC at the OSH for Xarelto - No seizure prophylaxis at this time - Repeat CT in the morning - Elevate head of bed 30 degrees -No neurosurgical intervention indicated -Continue to hold OAC until OP follow up -May start DVT ppx in 48 hrs -No need for AED -CT head in 1-2 weeks OP # Chronic pain - Home amitriptyline --> no longer taking - Home baclofen nightly - home butrans #Acute pain - Multimodal pain control # At risk for delirium/acute encephalopathy - Delirium precautions: increase activity, limit nighttime disturbances, and avoid anticholinergic meds, benzos, etc Circulatory system # Atrial fibrillation, hypertension, HFpEF - 02/11/21 echo EF 68% - Hold Xarelto - atenolol 25 mg - Home Jardiance 10 mg - Repeat echo - SBP 110-160 - PRN anti-htn med - HOLD home Lasix 20 mg as needed edema Respiratory system # COPD # Acute traumatic left 3 through 7 rib fractures - Home Symbicort -> substitute Dulera - O2 protocol - Aggressive pulmonary hygiene Gastrointestinal system # GERD -Home Pepcid #Constipation - Bowel regimen Renal function - Strict I/Os #Gross hematuria - Labs and imaging reviewed - trend daily labs - Cr @baseline - UA +for infxn - check urine culture (p) - No acute urologic surgical intervention at this time - IV Abx - start ancef - adjust per culture results - obtain PVR - Optimize pain/nausea control - Monitor fevers/hypotension Immunologic system [x] Mupirocin for empiric MRSA decolonization x5 days - Monitor for fevers Hematologic system - Monitor hemoglobin Endocrine system - Monitor glucose Integumentary system (GI and cutaneous) - Skin checks # Right knee hematoma - CTM Musculoskeletal system - PTOT #left shoulder osteoarthritis and a right knee hematoma - Orthopedic consultation - Nonweightbearing left upper extremity -Patient is nontender in the left anatomic snuffbox and there is no evidence of acute fracture of the left scaphoid on scaphoid view. She has tenderness with motion of her shoulder. It is unclear if this is referred from her rib fractures or if this is an exacerbation of left shoulder osteoarthritis causing pain with motion. Regardless, there are no fractures of the proximal left humerus where the patient is experiencing pain. -No acute intervention for left shoulder pain. Recommend pain management through the primary service. -Patient given left upper extremity sling and left removable thumb spica brace for comfort -There is a sizable right knee hematoma following a fall on Xarelto. There are no associated fractures on right knee x-ray. Patient is nontender on the bony prominences of the right knee. -No acute intervention for a right knee hematoma without fracture. Recommend compressive dressing for comfort and to aid in hematoma resolution. -Weightbearing as tolerated -Activity as tolerated -Ice & elevate -Neurovascular checks -Skin checks -Follow-up outpatient Ppx - DVT prophylaxis: SCDs, lovenox - GI prophylaxis: []PPI, [x]Pepcid MEDS: Scheduled PRN Scheduled Meds[2] PRN Meds[3] Continuous Continuous Meds[4] Patient evaluated on 04/25/2025 Level of Medical Decision Making: risk of morbidity from additional diagnostic testing or treatment []High [x]Moderate []Low Complexity: Acute, complicated injury (MOD) Personally Reviewed/Independently interpreted patient's: [x]Epic notes: []Operations Superintendent notes, []Nursing notes, []Case management/SW []Radiology studies: []CT, []CXR, []AXR, []Pelvis XR []Labs: []CBC, []BMP, []CMP/LFTs, []PT/INR []EKG []Ordering tests []Other Discussed/ With: [x]Patient/Family: []Spouse, []Son/Daughter, []Mother/Father, []Friend []RN []Consultants: []Ortho, []Geriatrics, []Palliative, []PRS, []Nephro, []NCC, []NSG, []Cards IP CONSULT TO WOUND PREVENTION IP CONSULT TO ORTHOPAEDIC SURGERY IP CONSULT TO GERIATRICS IP CONSULT TO PALLIATIVE CARE IP CONSULT TO NEUROSURGERY IP CONSULT TO ANESTHESIOLOGY - ACUTE PAIN SERVICE IP CONSULT TO UROLOGY []SW/TCC []Other Time was spent, Reviewing medical record including recent tests and results Ordering prescription medications/tests and procedures Communicating results to the patient/family/caregiver Counseling/educating the patient/family/caregiver Documenting clinical information the patient's electronic record Coordination of care for the patient Performing a medical appropriate exam and evaluation ~~~~~~~~~~~~~~~~~~~~~~~~~~~~~~~~~~~~~~~~~~~~~~~~~~~~~~~~~~~~~ This note may have been dictated using Dragon Medical Practice Edition 2.6 and/or [employer] Voice Recognition Feature. The document was proofread; however, unrecognized voice recognition ichthyologist errors may be present. [1] Patient Active Problem List Diagnosis Pulmonary fibrosis (HCC) Lung nodule Chronic obstructive pulmonary disease (HCC) CONCEPCION (obstructive sleep apnea) Psoriatic arthritis (HCC) Acute subdural hematoma (HCC) Fall Closed fracture of multiple ribs of left side with routine healing Closed fracture of left wrist Hematoma [2] acetaminophen, 1,000 mg, Oral, q8h atenolol, 25 mg, Oral, Daily baclofen, 5 mg, Oral, Nightly buprenorphine, 5 mcg, TransDERmal, Weekly ceFAZolin, 1,000 mg, IntraVENous, q8h cholecalciferol, 2,000 Units, Oral, Daily enoxaparin, 30 mg, SubCUTAneous, q12h famotidine, 20 mg, Oral, Daily gabapentin, 100 mg, Oral, q12h insulin lispro, 0-12 Units, SubCUTAneous, TID WC And insulin lispro, 0-12 Units, SubCUTAneous, Nightly ipratropium-albuterol, 3 mL, Nebulization, BID mometasone-formoterol, 2 puff, Inhalation, BID polyethylene glycol (PEG) 3350, 17 g, Oral, Daily sennosides, 2 tablet, Oral, BID sodium chloride 0.9%, 30 mL, IntraVENous, q6h sodium chloride, 4 mL, Nebulization, q12h tiotropium, 2 puff, Inhalation, Daily [3] PRN medications: dextrose, dextrose, glucagon (rDNA), glucose, HYDROmorphone, ipratropium-albuterol, melatonin, naloxone, ondansetron ODT OR ondansetron, oxyCODONE OR oxyCODONE, sodium chloride 0.9%, sodium chloride 0.9% [4] * Shilpa Ruiz - 04/24/2025 2:32 PM EDT [facility] Respiratory Care Department Progress Note As part of the Respiratory Assessment Program (RAP), the following Respiratory Therapist evaluationhas been completed, including a chart review and clinical/physical assessment. Respiratory Therapist RAP Evaluation Guideline Points 0 1 2 3 4 Points Strongly Consider History Factor No Pulmonary conditions Stable Pulmonary condition(s) Surgery or Intervention that may impact Pulmonary system (at risk) Surgery or Intervention that is impacting Pulmonary system Active Exacerbation of Pulmonary Condition 1 Respiratory Pattern Regular, RR= 12-18 GOODWIN or Increased RR= 19-24 Irregular, or RR= 25-30 SOB, talk in short sentences, or RR= 31-35 Severe SOB, accessory muscle use, one word answers, or RR>35 0 Aerosol Med(s), High Flow O2 Breath Sounds Clear Diminished in 1 lobe Diminished in <= 2 lobes Adventitious breath sounds Coarse crackles, Wheezes, or Diminished in >2 lobes 2 Aerosol Med(s), Bronchial Hygiene, Hyperinflation Cough & Sputum Strong cough, no secretion retention or production Weak cough, no secretion retention or production Weak cough, w/ production (less often than Q2hr), or secretion retention No cough, w/ secretion retention or production (less often than Q2hr) Significant secretion production (more often than Q2hr) or mucus plug 0 Aerosol Med(s), Bronchial Hygiene, Hyperinflation Level of Activity Ambulatory Ambulatory with Assist Up in chair or edge of bed (dangle) Non-ambulatory, bedridden with active ROM Completely paralyzed or without active ROM 0 Triage 5 0-2 Triage 4 3-5 Triage 3 6-10 Triage 2 11-14 Triage 1 >=15 Total 3 Triage Score = 4 TRIAGE SCORING - SUGGESTED FREQUENCIES Aerosol Therapy Bronchial Hygiene Hyperinflation Triage Score Q4h & PRN 1 Q4hWA (QID) & PRN 2 TID & PRN 3 BID & PRN 4 PRN 5 RT to enter/modify frequency of treatment order in EMR/EHR to match this RAP evaluation. Based on this RAP evaluation the following therapy is being initiated: Duoneb At the following frequency: BID and PRN Comments: Thank you for involving Respiratory in the care of this patient, * Jenelle Richards, PT - 04/24/2025 12:44 PM EDT Images from the original note were not included. PHYSICAL THERAPY [facility] Treatment Note Name/MRN: Lesli Rosales ([id number]) Date of : 1940 Age: 85 y.o. Room/Bed: W3-325/W3-325 A Discharge Recommendation: IP Rehab Equipment Needed: No Assessment Pt is primarily limited by rib and L shoulder pain during therapy this date. Irritable, but agreeable to work with PT. Mod A for bed mobility and mod A with retro balance noted for transfer tasks with PT used for support. Pt had sling on at PT arrival and maintained throughout session. Rec IP rehabupon discharge to continue to address deficits post acute care. Subjective Pt reclined in bed and agreeable to therapy. States she is hurting today in her L shoulder and ribsand it gets worse when she moves. RN cleared pt for PT. Pain: 0-10 pain scale: 8/10 Location: L shoulder/ribs Medical Precautions: No active isolations Proper PPE donned/doffed in accordance with facility standards. Fall Risk: Curry Fall Risk Score: 85 (Low Risk) Curry Fall Risk Score: 85 (High Risk) NWB L UE noted in order set, ortho note states WBAT. Pt in sling at PT arrival and significantly limited by L shoulder and rib pain with any functional mobility tasks. NWB L UE maintained throughout session. Precautions/Restrictions: Lines/Drains/Airways: purewick, SPO2, tele, NC Overall Cognitive Status: Exceptions - Arousal/alertness: drowsy during there ex but improved with sitting EOB - Safety judgement: decreased awareness of need for safety - Problem solving: assistance required to generate solutions, assistance required to identify errors made, and decreased awareness of errors - Insights: decreased awareness of deficits Overall Orientation Status: Oriented x4 Family/Caregiver Present: none Objective Bed Mobility Supine to sit: Mod Assist Sit to supine: Mod Assist Use of bed features and VC Transfers/Mobility Sit to stand: Mod Assist, retro initially but improved with static stand Sitting balance: Modified Independent, Supervision Standing balance: Contact Guard, Min Assist Narrow GALLO Device(s) used: Used therapist for support Ambulation Ambulation 1 Assistive device(s) used: Used therapist for support Assist level: Min Assist Distance (ft): 1 step toward HOB laterally Quality of gait: slow carla, instability through all phases Exercises Exercises Quad Sets: x10 BLE Heelslides: AAROM R LE, AROM L LE x10 each Gluteal Sets: x10 Hip Abduction: supine x 10 BLE AROM Hip Adduction: supine x10 BLE AROM Knee Long Arc Quad: 2x5 BLE Ankle Pumps: x10 BLE Plan Continue acute PT per plan of care. Safety/Education Safety Safety Devices in place: call light within reach, left in bed, gait belt, patient at risk for falls, and no alarms engaged upon entry Restraints: N/A Education Education Given To: patient Education Provided: PT Role, Plan of Care, Transfer Training, Discharge Recommendations, and Benefits of Increasing Activity Education Method: Verbal and Demonstration Barriers to Learning: Agitation, Cognition Education Outcome: Continued Education Needed Outcome Measures AM-PAC AM-PAC Inpatient Mobility Raw Score (No Stairs) : 10 JH-HLM JH-HLM Score: Sat at edge of bed Goals Patient Stated Goal: Encounter Problems Encounter Problems (Active) Balance Patient will maintain dynamic standing balance for 3 minutes with CGA in order to demonstrate decreased risk of falling. Start: 04/23/25 Expected End: 05/14/25 Mobility Patient will ambulate 30 feet with CGA and rolling walker in order to improve safety and independence with mobility. Start: 04/23/25 Expected End: 05/14/25 Transfers Patient will perform bed mobility with CGA in order to improve independence and prepare for out of bed mobility. Start: 04/23/25 Expected End: 05/14/25 Patient will complete sit to stand transfer with CGA to wheeled walker in order to improve safety and prepare for out of bed mobility. Start: 04/23/25 Expected End: 05/14/25 Therapy Time Individual Co-treatment Time In 1211 Time Out 1239 Minutes 28 Timed Code Treatment Minutes: 28 Minutes (FA, TP) Jenelle Richards PT * Sharon Falcon OT - 04/24/2025 10:12 AM EDT Images from the original note were not included. OCCUPATIONAL THERAPY [facility] Initial Evaluation Name/MRN: Lesli Rosales ([id number]) Evaluation Date: 04/24/2025 Date of : 1940 Admission Date: 04/22/2025 11:45 PM Age: 85 y.o. Room/Bed: W3325/W3-325 A Discharge Recommendation: IP Rehab Assessment IMPRESSION: Pt presented after a fall resulting in a SDH, L rib fx 3-7, injured L UE but no fx. Pt reports being previously IND with ADLs and ambulation. Pt currently requires min assist for bed mobility, mod assist for standing, min assist for transfer and total assist for ADLs. OT recommending IPR. Admitting Diagnosis: see above Performance Deficits /Impairments: Increased Pain, Decreased Functional Mobility, Decreased ADL status, Decreased Strength, Decreased Safety Awareness, Decreased Endurance, Decreased Balance, Decreased ROM, and Decreased High Level IADLs Prognosis: Fair Decision Making: Low Complexity Subjective Pt supine in bed, agreeable to OT eval. Pain: Pizano-Soliz Pain Ratin = Hurts whole lot Pain Location: L ribs/shoulder Past Medical History: Medical History[1] Past Surgical History: Surgical History[2] Admission Diagnosis: Patient Active Problem List Diagnosis Date Noted Acute subdural hematoma (HCC) 04/23/2025 Fall 04/23/2025 Closed fracture of multiple ribs of left side with routine healing 04/23/2025 Closed fracture of left wrist 04/23/2025 Hematoma 04/23/2025 Chronic obstructive pulmonary disease (HCC) 08/24/2017 Lung nodule 06/28/2017 Pulmonary fibrosis (HCC) 06/01/2017 CONCEPCION (obstructive sleep apnea) 06/01/2017 Psoriatic arthritis (HCC) 06/01/2017 Medical Precautions: No active isolations Proper PPE donned/doffed in accordance with facility standards. Fall Risk: Curry Fall Risk Score: 85 (Low Risk) Curry Fall Risk Score: 85 (High Risk) Precautions/Restrictions: Braces or Orthoses: L wrist brace, L sling for comfort Left UE Weight Bearing: Weight Bearing As Tolerated Lines/Drains/Airways: purewick, tele, O2 Fall Precautions Family/Caregiver Present: none Overall Cognitive Status: WFL Overall Orientation Status: Oriented x4 Social/Functional History Patient admitted from home. Lives With: Son Type of Home: single family home Home Layout: Single Level Home Home Access: Stairs to Enter with Rails (# of stairs: 4) and Ramped Entrance Bathroom Shower/Tub: Tub/Shower Combo and Shower Chair with Back Toilet: Standard and Grab Bars Home Equipment: front wheeled walker Homemaking Responsibilities: Independent Receives Help From: Family Active Scrap Metal Burner: N/A Prior Level of Function Prior Level of ADL Function: Independent Prior Level of Mobility: Independent; Device: Front wheeled walker Prior Level of Transfers: Independent Objective ADLs LE Dressing: Dependent, total assist to don B socks while sitting EOB, reports she does not don them at home d/t difficulty Upper Extremity Assessment AROM: Impaired: R UE limited d/t broken shoulder from previous fall about 4 years ago, L only able to flex shoulder ~ 15 degrees d/t pain PROM: Not assessed this session Strength: Exceptions: R fair+ executive admin strength Bed Mobility Supine to sit: Min Assist, assist to elevate trunk, HOB elevated, able to manage B LE Transfers/Mobility Sit to stand: Mod Assist Stand to sit: Min Assist Stand step: Min Assist Mod assist to elevate from EOB d/t retro lean but once stand required less assist, min assist for balance during steps over tp recliner, min assist for controled decent. Device(s) used: hand held assist Sensation: Normal Sensation AM-PAC AM-PAC Inpatient Daily Activity Raw Score: 13 ADL Inpatient CMS G-Code Modifier: CL Plan Pt would benefit from skilled acute OT services to address Strengthening, ROM, Gait Training, Balance Training, Self-Care/ADL Training, Functional Mobility Training, Endurance Training, Safety Education and Training, Pain Management, Home Management Training, and Patient/Caregiver Training. Frequency: 4x/weekfor 4 weeks Barriers: Pain, Impaired balance, Lower extremity weakness, Limited safety awareness, Decreased endurance, Upper extremity weakness, New weightbearing/ROM restrictions, and Stairs at home Safety/Education Safety Safety Devices in place: All fall risk precautions in place, call light within reach, left in chair, nurse notified, and no alarms engaged upon entry Restraints: No Education Education Given To: patient Education Provided: OT Role, Plan of Care, and Discharge Recommendations Education Method: Verbal Barriers to Learning: Education Outcome: Goals Patient Stated Goal: rehab Encounter Problems Encounter Problems (Active) Balance Patient will maintain static standing balance for 3 minutes with CGA in order to demonstrate decreased risk of falling. Start: 04/24/25 Expected End: 05/22/25 Dressing Upper Extremities Patient will complete upper body dressing with min assist Start: 04/24/25 Expected End: 05/22/25 Dressings Lower Extremities Patient will dress lower body with min assist Start: 04/24/25 Expected End: 05/22/25 Grooming Patient will complete daily grooming tasks with set up Start: 04/24/25 Expected End: 05/22/25 Mobility Patient will demonstrate functional ambulation with CGA and LRD Start: 04/24/25 Expected End: 05/22/25 Toileting Patient will complete toileting tasks at standard toilet with min assist. Start: 04/24/25 Expected End: 05/22/25 Transfers Patient will complete functional transfer with least restrictive device with CGA in order to prepare for ambulation. Start: 04/24/25 Expected End: 05/22/25 Patient will perform bed mobility with CGA in order to improve independence and prepare for out of bed mobility. Start: 04/24/25 Expected End: 05/22/25 Therapy Time Individual Co-Treatment Co-Evaluation Time In 902 Time Out 09 Minutes 26 Timed Code Treatment Minutes: 8 Minutes (FA) Sharon Falcon OT Patient's Occupational Therapy Plan of Care supervision is transferred to a [facility] Therapy Services Occupational Therapist. Goals and/or treatment plan was established in collaboration with patient/family/other representatives. [1] Past Medical History: Diagnosis Date Arthritis Atrial fibrillation (HCC) Chronic obstructive pulmonary disease (HCC) 08/24/2017 Chronic pain Congestive heart failure (CHF) (HCC) GERD (gastroesophageal reflux disease) Hypertension Osteoarthritis Pain management Psoriasis [2] Past Surgical History: Procedure Laterality Date ABDOMINAL SURGERY bladder bowel all dropped APPENDECTOMY BACK SURGERY BLADDER SUSPENSION BRONCHOSCOPY (HISTORICAL) 06/28/2017 Bronch ENB CHOLECYSTECTOMY COLONOSCOPY FINGER SURGERY HERNIA REPAIR 1959' umbilical SHOULDER SURGERY Right SPINE SURGERY 1985 TOTAL ABDOMINAL HYSTERECTOMY UPPER GASTROINTESTINAL ENDOSCOPY * Dania Givens - 04/24/2025 8:24 AM EDT Nutrition rescreen completed. Chart reviewed. Patient to be monitored and followed by the diet civil drafting technician. ARVIND Owen * LAVELLE Noel CNP - 04/24/2025 6:48 AM EDT Images from the original note were not included. Daily Trauma Progress Note ROB 04/24/2025 6:48 AM Admit Date: 04/22/2025 Post Trauma Day 2 Fall of unknown etiology HISTORY OF TRAUMATIC EVENT: 85 y.o. female status post fall from standing height the incident happened around afternoon on 04/22.The patient was walking through her living room after folding some laundry and fell to the ground striking her right knee and left chest. She is unable to identify the cause of her fall however she does report that she was feeling somewhat dizzy and had a headache throughout the day preceding the fall. She denies any loss of consciousness. Her pain is currently 8/10. She is on Xarelto for A-fib. Patient initially presented to [facility] and was found to have a subdural hematoma 6 mm. She was givenPCC prior to transfer for direct admission to T2 ICU. INJURIES: - Left frontal and anterior hemispheric SDH 6mm, no mass effect - Left 3 through 7 rib fractures - Left wrist pain - Right knee hematoma - Acute traumatic pain Imaging reviewed and independently interpreted: CT chest reviewed -multiple acute/chronic rib fractures --> suspect acute 3 through 7 rib fractures anterior on the L CTH - left frontal and interhemispheric subdural hematoma measuring 6 mm without mass effect PROCEDURES: none INCIDENTAL FINDINGS: Chronic compression fractures of T8, L1 and L2 CHIEF COMPLAINT: L shoulder pain Headache R knee pain L rib pain PREVIOUS 24 HOUR EVENTS: Transferred to Trauma floor from ICU yesterday Ortho, geriatrics NSGY and palliative care consulted Pain control- meds adjusted overnight for complaints of rib pain and SOB, breathing treatment givenand dilaudid increased with improvement Consults: IP CONSULT TO WOUND PREVENTION IP CONSULT TO ORTHOPAEDIC SURGERY IP CONSULT TO GERIATRICS IP CONSULT TO PALLIATIVE CARE IP CONSULT TO NEUROSURGERY IP CONSULT TO ANESTHESIOLOGY - ACUTE PAIN SERVICE MEDICATIONS: Current Medications[1] ARE THERE PERTINENT UPDATES TO PAST,FAMILY, OR SOCIAL HISTORY?: No Subjective: Patient having pain to ribs left shoulder and left arm, rib pain worsens with deep breaths. Declined gabapentin stating was given to her to sleep and it made her sleepy. Educated patient about adequate multimodal pain control, amendable to low dose gabapentin trial. Appetite fair. Denies fever, chills, N/V. Addendum 1140: per nursing, patient now with hematuria. To bedside, patient denies any current dysuria, urgency or frequency. States had "this before in October when I hurt myself trying to pick my off the floor when he fell. But they said it was just an injury and it got better. I stopped having blood in my urine" Review of Systems Constitutional: Positive for activity change. HENT: Negative. Eyes: Negative. Respiratory: Positive for shortness of breath (with excertion). Cardiovascular: Positive for chest pain (L rib pain). Gastrointestinal: Negative. Genitourinary: Positive for hematuria. Musculoskeletal: Positive for arthralgias, gait problem, joint swelling and myalgias. Skin: Positive for wound (R knee abrasion). Neurological: Positive for dizziness (intermittent) and headaches. Negative for facial asymmetry, speech difficulty, weakness and light-headedness. Hematological: Bruises/bleeds easily. Psychiatric/Behavioral: Negative for agitation, behavioral problems and confusion. PC-PTSD-5 Had nightmares about the event(s) or thought about the event(s) when you did not want to? No 2. Tried hard not to think about the event(s) or went out of your way to avoid situations that reminded you of the event(s)? No 3. Been constantly on guard, watchful, or easily startled? No 4. Amorita numb or detached from people, activities, or your surroundings? No 5. Amorita guilty or unable to stop blaming yourself or others for the event(s) or any problems the event(s) may have caused? No If yes to 3 or more, [address] CLP consult PHQ In the last 2 weeks have you had: Little interest or pleasure in doing things No Been feeling down, depressed, or hopeless No If greater then 0, place CLP consult Date PHQ completed: 04/23/25 Objective: Patient Vitals for the past 24 hrs: BP Temp Temp src Pulse Resp SpO2 Height Weight 04/24/25 0528 -- -- -- 77 19 97 % -- -- 04/24/25 0521 -- -- -- -- -- -- -- 64.9 kg (143 lb 1.3 oz) 04/24/25 0508 150/77 36.9 C (98.5 F) Temporal 84 20 94 % -- -- 04/24/25 0220 115/60 36.8 C (98.2 F) Temporal 65 18 100 % -- -- 04/23/25 2213 -- -- -- 55 16 99 % -- -- 04/23/25 2212 -- -- -- 51 16 98 % -- -- 04/23/25 2135 112/78 36.8 C (98.2 F) Temporal 74 16 98 % -- -- 04/23/25 1839 131/80 36.1 C (97 F) Temporal 68 20 98 % -- -- 04/23/25 1600 (!) 76/46 -- -- 68 15 97 % -- -- 04/23/25 1459 -- -- -- -- -- -- 1.524 m (5') 63.5 kg (140 lb) 04/23/25 1200 (!) 89/59 37 C (98.6 F) Temporal 79 16 99 % -- -- 04/23/25 0800 130/80 36.9 C (98.4 F) Temporal 70 15 100 % -- -- 04/23/25 0700 108/58 -- -- 80 17 99 % -- -- Intake/Output Summary (Last 24 hours) at 04/24/2025 0648 Last data filed at 04/24/2025 0524 Gross per 24 hour Intake -- Output 600 ml Net -600 ml I/O this shift: In: - Out: 350 [Urine:350] Last BM: TECHNICIAN TERMINAL AND REPEATER Diet: Regular CVP: No Where: na Chest Tubes: none PHYSICAL: Physical Exam Vitals and nursing note reviewed. Constitutional: General: She is not in acute distress. Appearance: Normal appearance. She is not ill-appearing or toxic-appearing. HENT: Head: Normocephalic. Comments: Ecchymosis R temporal region Right Ear: External ear normal. Left Ear: External ear normal. Nose: Nose normal. Mouth/Throat: Mouth: Mucous membranes are moist. Eyes: Extraocular Movements: Extraocular movements intact. Conjunctiva/sclera: Conjunctivae normal. Cardiovascular: Rate and Rhythm: Normal rate. Pulses: Normal pulses. Pulmonary: Effort: Pulmonary effort is normal. No respiratory distress. Chest: Chest wall: Tenderness present. Abdominal: General: Bowel sounds are normal. There is no distension. Palpations: Abdomen is soft. Tenderness: There is no abdominal tenderness. Musculoskeletal: General: Swelling, tenderness and signs of injury present. Cervical back: Normal range of motion and neck supple. No tenderness. Comments: R knee hematoma with abrasion L thumb spica velcro splint Limited ROM LUE-->L shoulder pain, sling in place Skin: General: Skin is warm and dry. Capillary Refill: Capillary refill takes 2 to 3 seconds. Findings: Bruising present. Neurological: General: No focal deficit present. Mental Status: She is alert and oriented to person, place, and time. Mental status is at baseline. Cranial Nerves: No cranial nerve deficit. Psychiatric: Mood and Affect: Mood normal. Behavior: Behavior normal. Sutures or krissy? No O2: 4L NC, wean to keep 88-92% (wears 2L NC intermittently at home) Data Review Data CBC with Differential: Lab Results Component Value Date WBC 11.3 (H) 04/24/2025 RBC 4.20 04/24/2025 HGB 13.8 04/24/2025 HCT 44.6 04/24/2025 PLT 157 04/24/2025 CMP: Lab Results Component Value Date NA 141 04/24/2025 K 4.2 04/24/2025 CL 108 (H) 04/24/2025 CO2 28 04/24/2025 BUN 19 04/24/2025 CREATININE 0.51 (L) 04/24/2025 GLUCOSE 91 04/24/2025 CALCIUM 8.7 (L) 04/24/2025 BMP: Hepatic Function Panel:Ionized Calcium: No components found for: "IONCA" Magnesium: No results found for: "MG" Phosphorus: No results found for: "PHOS" PT/INR: No results found for: "PROTIME", "INR" PTT: No results found for: "APTT"[APTT Last 3 Troponin: No results found for: "TROPONINI" Urine Culture: No components found for: "CURINE" Blood Culture: No components found for: "CBLOOD", "CFUNGUSBL" Blood Culture from Central Line: No components found for: "CBLOODLN" Stool Culture: No components found for: "CSTOOL" Sputum Culture: No components found for: "CSPUTUM" Sputum Culture for AFB: No components found for: "CAFBSM" Wound Culture: na Radiology: XR hand 1 or 2 views left Result Date: 04/23/2025 [facility] 1940 [id number] Exam Date/Time: 04/23/2025 02:22 Procedure: XR HAND 1-2 VIEWS LEFT Ordering Provider: GONZALEZ KATIE Reason For Exam: trauma LEFT HAND: CLINICAL INDICATION: trauma. Injury with pain TECHNIQUE: PA, Lat COMPARISON: None. FINDINGS: Artifacts overlie the hand and wrist. There is no fracture or dislocation. Minimal spurring and narrowing is noted about the DIP and PIP joints along with the firstcarpometacarpal joint. No bone lesion is identified. There is no other soft tissue abnormality. No acute abnormality. Minimal degree of osteoarthritis. Report Dictated on Electronically Signed By: Harpreet Hood MD Electronically Signed Date/Time: 04/23/2025 3:16 AM EDT Problem List[2] ASSESSMENT: 85-year-old female status post fall of uncertain etiology from standing height on Xarelto. Presented to [facility] found to have left frontal and interhemispheric subdural hematoma measuring 6 mm without mass effect, as well as concern for acute left rib fractures on personal review of imaging and by comparison with exam most concerning for left 3rd through 7th rib fractures as well as a left scaphoid fx. PLAN: Neuro/Spine: -Neurosurgery consulted, recommend the following: Repeat CT head showed improvement in right frontal SDH. Interhemispheric SDH noted on first CT. CT as above No neurosurgical intervention indicated Continue to hold OAC (xarelto) until OP follow up May start DVT ppx in 48 hrs No need for AED CT head in 1-2 weeks OP Will sign off-info in AVS - Pain control: Tylenol 1gm q8hrs, gabapentin 100mg q12hrs, Oxy 5/10mg prn, Dilaudid for breakthrough - Home Baclofen -changed to HS - Hold home Percocet (Tylenol and Oxy) - Home Buprenorphine patch weekly - Palliative consult - Geriatrics consult -Medications with associated fall risk include: Atenolol - monitor for bradycardia/hypotension Balcofen - takes at HS only, recommend decreasing to HS only here Furosemide - monitor for orthostasis/dehydration Percocet - long-standing med, dose likely reasonable No longer taking gabapentin, amitriptyline at home - Start Melatonin 3mg HS - APS consult-->rib block, HOLD Xarelto X 72hrs HEENT: - no concerns Cardiovascular: - Hypotension: SBP 76-150 - Home Atenolol 25mg daily- hold for HR <60 or SBP <100 - BP Goal <160 SBP - Telemetry - Orthostatic BPs negative on 04/23 - 04/23- EKG- A-fib, Qtc 467 ms - Repeat Echo 04/23- LVEF 60% mild, aortic valve stenosis, Left atrium severely dilated -last 02/11/21 echo EF 68% - HOLD Xarelto-->rib block pending following 72hr hold - Holding home lasix Pulmonary: Hx COPD, CHF -# Acute left 3rd through 7th rib fractures - Multimodal pain control as above - Daily chest x-rays - Aggressive pulm toilet with incentive spirometry and AccuPAP - Home Symbicort-->substitute Dulera - Home Spiriva - 3% nebs Q12 - Duonebs QID and prn #COPD - standard O2 protocol; patient on as needed oxygen at home, O2 goal SpO2 greater than 88% - wears home oxygen at 2L NC intermittently FEN/GI: -Diet: Carb control - Given 250ml LR yesterday for soft BPs - Zofran PRN - bowel regimen- miralax daily and senna BID - Home Vit D - Daily BMP : - Estimated Creatinine Clearance: 69.1 mL/min (A) (by C-G formula based on SCr of 0.51 mg/dL (L)). 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 No If no, why? Patient with Acute Head Bleed GI: home Pepcid Pressure Ulcer: reposition Q2 Musculoskeletal: #left scaphoid fx- seen by Ortho- no fx - PT/OT- PT recs for IP rehab Ortho consult: Patient is nontender in the left anatomic snuffbox and there is no evidence of acute fracture of the left scaphoid on scaphoid view. She has tenderness with motion of her shoulder. It is unclear if this is referred from her rib fractures or if this is an exacerbation of left shoulder osteoarthritiscausing pain with motion. Regardless, there are no fractures of the proximal left humerus where thepatient is experiencing pain. -No acute intervention for left shoulder pain. Recommend pain management through the primary service. -Patient given left upper extremity sling and left removable thumb spica brace for comfort -There is a sizable right knee hematoma following a fall on Xarelto. There are no associated fractures on right knee x-ray. Patient is nontender on the bony prominences of the right knee. -No acute intervention for a right knee hematoma without fracture. Recommend compressive dressing for comfort and to aid in hematoma resolution. -Weightbearing as tolerated -Activity as tolerated -Ice & elevate -Neurovascular checks -Skin checks -Follow-up outpatient - Pain and medical management per trauma -Orthopaedic surgery will sign off. WB Status: RUE:at LUE: NWB RLE: at LLE: at Is the patient in restraints?: na Medications Reconciled- Yes [x] NO [], why Disposition: Cont care on 3W, cont Q4hr Neurochecks. Pain control. Aggressive pulmonary hygiene with wean as tolerated for sats 88-92%. Holding home xarelto for possible rib block. Follow up urology recs for hematuria. PT/OT recs pending for dispo planning [1] Current Facility-Administered Medications: acetaminophen (Tylenol) tablet 1,000 mg, 1,000 mg, Oral, q8h, LAVELLE Shaffer CNP, 1,000 mg at 04/24/25 0517 atenolol (Tenormin) tablet 25 mg, 25 mg, Oral, Daily, LAVELLE Shaffer CNP, 25 mg at baclofen (Lioresal) tablet 5 mg, 5 mg, Oral, Nightly, LAVELLE Jones CNP, 5 mg at buprenorphine (Butrans) 5 MCG/HR 5 mcg, 5 mcg, TransDERmal, Weekly, LAVELLE Jones CNP cholecalciferol (Vitamin D-3) tablet 2,000 Units, 2,000 Units, Oral, Daily, LAVELLE Shaffer CNP, 2,000 Units at 04/23/25903 dextrose 5 % infusion, 100 mL/hr, IntraVENous, PRN, LAVELLE Shaffer CNP dextrose 50 % solution 12.5 g, 12.5 g, IntraVENous, PRN, LAVELLE Shaffer CNP famotidine (Pepcid) tablet 20 mg, 20 mg, Oral, Daily, LAVELLE Shaffer CNP, 20 mg at gabapentin (Neurontin) capsule 100 mg, 100 mg, Oral, q12h, LAVELLE Shaffer CNP, 100 mg at 04/23/252028 glucagon (human recombinant) injection 1 mg, 1 mg, IntraMUSCular, PRN, LAVELLE Shaffer CNP glucose oral gel 15 g, 15 g, Oral, PRN, LAVELLE Shaffer CNP HYDROmorphone (Dilaudid) injection 0.5 mg, 0.5 mg, IntraVENous, q4h PRN, Ninfa Colindres MD Insulin Lispro (Humalog) injection 0-12 Units, 0-12 Units, SubCUTAneous, TID WC AND Insulin Lispro (Humalog) injection 0-12 Units, 0-12 Units, SubCUTAneous, Nightly, LAVELLE Shaffer CNP ipratropium-albuterol (Duo-Neb) 0.5-2.5 mg/3 mL nebulizer solution 3 mL, 3 mL, Nebulization, 4x daily, LAVELLE Shaffer CNP, 3 mL at 04/23/252211 ipratropium-albuterol (Duo-Neb) 0.5-2.5 mg/3 mL nebulizer solution 3 mL, 3 mL, Nebulization, q2h PRN, LAVELLE Shaffer CNP, 3 mL at 04/24/25 0528 melatonin tablet 3 mg, 3 mg, Oral, Nightly PRN, LAVELLE Jones CNP mometasone-formoterol (Dulera 100) 100-5 MCG/ACT inhaler 2 puff, 2 puff, Inhalation, BID, LAVELLE Shaffer CNP, 2 puff at 04/23/25 0907 mupirocin (Bactroban) 2 % ointment 1 Application, 1 Application, Nasal, BID, LAVELLE Shaffer, 1 Application at 04/23/25 09 naloxone (Narcan) injection 0.4 mg, 0.4 mg, IntraVENous, PRN, LAVELLE Shaffer CNP ondansetron ODT (Zofran-ODT) disintegrating tablet 4 mg, 4 mg, Oral, q8h PRN OR ondansetron (Zofran) injection 4 mg, 4 mg, IntraVENous, q6h PRN, LAVELLE Shaffer CNP, 4 mg at 04/23/25 0405 oxyCODONE (Roxicodone) immediate release tablet 10 mg, 10 mg, Oral, q4h PRN, Ninfa Colindres MD oxyCODONE (Roxicodone) immediate release tablet 5 mg, 5 mg, Oral, q4h PRN, 5 mg at 04/24/25 0504 OR [DISCONTINUED] oxyCODONE (Roxicodone) immediate release tablet 10 mg, 10 mg, Oral, q4h PRN, Marsha Skinner MD, 10 mg at 04/23/25 0402 polyethylene glycol (PEG) 3350 (Miralax) packet 17 g, 17 g, Oral, Daily, LAVELLE Shaffer CNP, 17 g at 04/23/25 0905 sennosides (Senokot) tablet 17.2 mg, 2 tablet, Oral, BID, LAVELLE Shaffer CNP, 17.2 mg at 04/23/252028 sodium chloride 0.9% (NS) flush 30 mL, 30 mL, IntraVENous, q6h, Victorina Garsia, SHUTTLE DRIVER - RN HEMODIALYSIS, 30 mL at 04/23/252028 sodium chloride 0.9% (NS) flush 30 mL, 30 mL, IntraVENous, PRN, Victorina Stoverahon, SHUTTLE DRIVER - RN HEMODIALYSIS sodium chloride 0.9% (NS) flush 30 mL, 30 mL, IntraVENous, PRN, Victorina Garsia, SHUTTLE DRIVER - RN HEMODIALYSIS sodium chloride 3 % hypertonic nebulizer solution 4 mL, 4 mL, Nebulization, q12h, Victorina Garsia, SHUTTLE DRIVER - RN HEMODIALYSIS, 4 mL at 04/23/25 2213 tiotropium (Spiriva Respimat) 2.5 MCG/ACT inhaler 2 puff, 2 puff, Inhalation, Daily, Victorina Garsia APRN - RN HEMODIALYSIS, 2 puff at 04/23/25 0916 [2] Patient Active Problem List Diagnosis Pulmonary fibrosis (HCC) Lung nodule Chronic obstructive pulmonary disease (HCC) CONCEPCION (obstructive sleep apnea) Psoriatic arthritis (HCC) Acute subdural hematoma (HCC) Fall Closed fracture of multiple ribs of left side with routine healing Closed fracture of left wrist Hematoma Cosigned by Domonique Gonzalez MD at 04/24/2025 12:31 PM EDT Associated attestation - Domonique Gonzalez MD - 04/24/2025 12:31 PM EDT ~~~~~~~~~~~~~~~~~~~~~~~~~~~~~~~~~~~~~~~~~~~~~~~~~~~~~~~~~~~~~ ATTENDING ADDENDUM Problem List[1] I have personally performed a face to face diagnostic evaluation on this patient. I have reviewed and agree with the care plan as documented above by my SHUTTLE DRIVER/KILEY. I personally discussed the review of systems and interviewed the patient along with performing a physical examination. In addition, I discussed the patient's condition and treatment options with him/her when possible. All of the patient's questions were answered and family updated when appropriate and possible. I I performed a physical exam and ROS on the same date of service as above. My findings agree with the above note except for any details corrected below. A complete review of systems was obtained and is negative except as stated in HPI. HPI: 85 y.o. female status post fall from standing height the incident happened around afternoon on 04/22.The patient was walking through her living room after folding some laundry and fell to the ground striking her right knee and left chest. She is unable to identify the cause of her fall however she does report that she was feeling somewhat dizzy and had a headache throughout the day preceding the fall. She denies any loss of consciousness. Her pain is currently 8/10. She is on Xarelto for A-fib. Patient initially presented to [facility] and was found to have a subdural hematoma 6 mm. She was givenPCC prior to transfer for direct admission to T2 ICU. Imaging reviewed and independently interpreted: CT chest reviewed -multiple acute/chronic rib fractures --> suspect acute 3 through 7 rib fractures anterior on the L CTH - left frontal and interhemispheric subdural hematoma measuring 6 mm without mass effect Problem list: Acute, acute on chronic, unstable or uncontrolled chronic problems/diagnoses: Acute traumatic left frontal and anterior hemispheric subdural hematoma 6mm, no mass effect Acute traumatic left 3 through 7 rib fractures Left shoulder osteoarthritis and a right knee hematoma Acute traumatic pain ?Pre-syncopal fall Incidental - Chronic compression fractures of T8, L1 and L2 Stable chronic problems, affecting patient care: [Medical History] [Medical History] Past Medical History Diagnosis Date Arthritis Atrial fibrillation (HCC) Chronic obstructive pulmonary disease (HCC) 08/24/2017 Chronic pain Congestive heart failure (CHF) (HCC) GERD (gastroesophageal reflux disease) Hypertension Osteoarthritis Pain management Psoriasis 24h: Geriatric and palliative consultation - Appreciate recommendations Restart gabapentin for pain control 100 mg BID - complains of L chest pain 2/2 rib fractures Patient will need medication reconciliation -Patient no longer taking gabapentin and amitriptyline at home -Takes baclofen nightly Low SBP yesterday - improved today 100s - cont home Start DVT ppx tomorrow PTOT rehab Echo - EF 60% Check orthostatics Plan: Neurological system #Acute traumatic left frontal and anterior hemispheric subdural hematoma 6mm, no mass effect - Patient received PCC at the OSH for Xarelto - No seizure prophylaxis at this time - Repeat CT in the morning - Elevate head of bed 30 degrees -No neurosurgical intervention indicated -Continue to hold OAC until OP follow up -May start DVT ppx in 48 hrs -No need for AED -CT head in 1-2 weeks OP # Chronic pain - Home amitriptyline --> no longer taking - Home baclofen nightly - home butrans #Acute pain - Multimodal pain control # At risk for delirium/acute encephalopathy - Delirium precautions: increase activity, limit nighttime disturbances, and avoid anticholinergic meds, benzos, etc Circulatory system # Atrial fibrillation, hypertension, HFpEF - 02/11/21 echo EF 68% - Hold Xarelto - atenolol 25 mg - Home Jardiance 10 mg - Repeat echo - SBP 110-160 - PRN anti-htn med - HOLD home Lasix 20 mg as needed edema Respiratory system # COPD # Acute traumatic left 3 through 7 rib fractures - Home Symbicort -> substitute Dulera - O2 protocol - Aggressive pulmonary hygiene Gastrointestinal system # GERD -Home Pepcid - Bowel regimen Renal function - Strict I/Os Immunologic system [x] Mupirocin for empiric MRSA decolonization x5 days - Monitor for fevers Hematologic system - Monitor hemoglobin Endocrine system - Monitor glucose Integumentary system (GI and cutaneous) - Skin checks # Right knee hematoma - CTM Musculoskeletal system - PTOT #left shoulder osteoarthritis and a right knee hematoma - Orthopedic consultation - Nonweightbearing left upper extremity -Patient is nontender in the left anatomic snuffbox and there is no evidence of acute fracture of the left scaphoid on scaphoid view. She has tenderness with motion of her shoulder. It is unclear if this is referred from her rib fractures or if this is an exacerbation of left shoulder osteoarthritis causing pain with motion. Regardless, there are no fractures of the proximal left humerus where the patient is experiencing pain. -No acute intervention for left shoulder pain. Recommend pain management through the primary service. -Patient given left upper extremity sling and left removable thumb spica brace for comfort -There is a sizable right knee hematoma following a fall on Xarelto. There are no associated fractures on right knee x-ray. Patient is nontender on the bony prominences of the right knee. -No acute intervention for a right knee hematoma without fracture. Recommend compressive dressing for comfort and to aid in hematoma resolution. -Weightbearing as tolerated -Activity as tolerated -Ice & elevate -Neurovascular checks -Skin checks -Follow-up outpatient Ppx - DVT prophylaxis: SCDs - GI prophylaxis: []PPI, [x]Pepcid MEDS: Scheduled PRN Scheduled Meds[2] PRN Meds[3] Continuous Continuous Meds[4] Patient evaluated on 04/24/2025 Level of Medical Decision Making: risk of morbidity from additional diagnostic testing or treatment []High [x]Moderate []Low Complexity: Acute, complicated injury (MOD) Personally Reviewed/Independently interpreted patient's: [x]Epic notes: []Operations Superintendent notes, []Nursing notes, []Case management/SW []Radiology studies: []CT, []CXR, []AXR, []Pelvis XR [x]Labs: [x]CBC, [x]BMP, []CMP/LFTs, []PT/INR []EKG []Ordering tests []Other Discussed/ With: [x]Patient/Family: []Spouse, []Son/Daughter, []Mother/Father, []Friend []RN []Consultants: []Ortho, []Geriatrics, []Palliative, []PRS, []Nephro, []NCC, []NSG, []Cards IP CONSULT TO WOUND PREVENTION IP CONSULT TO ORTHOPAEDIC SURGERY IP CONSULT TO GERIATRICS IP CONSULT TO PALLIATIVE CARE IP CONSULT TO NEUROSURGERY IP CONSULT TO ANESTHESIOLOGY - ACUTE PAIN SERVICE IP CONSULT TO UROLOGY []SW/TCC []Other Time was spent, Reviewing medical record including recent tests and results Ordering prescription medications/tests and procedures Communicating results to the patient/family/caregiver Counseling/educating the patient/family/caregiver Documenting clinical information the patient's electronic record Coordination of care for the patient Performing a medical appropriate exam and evaluation ~~~~~~~~~~~~~~~~~~~~~~~~~~~~~~~~~~~~~~~~~~~~~~~~~~~~~~~~~~~~~ This note may have been dictated using [employer] Medical Practice Edition 2.6 and/or [employer] Voice Recognition Feature. The document was proofread; however, unrecognized voice recognition ichthyologist errors may be present. [1] Patient Active Problem List Diagnosis Pulmonary fibrosis (HCC) Lung nodule Chronic obstructive pulmonary disease (HCC) CONCEPCION (obstructive sleep apnea) Psoriatic arthritis (HCC) Acute subdural hematoma (HCC) Fall Closed fracture of multiple ribs of left side with routine healing Closed fracture of left wrist Hematoma [2] acetaminophen, 1,000 mg, Oral, q8h atenolol, 25 mg, Oral, Daily baclofen, 5 mg, Oral, Nightly buprenorphine, 5 mcg, TransDERmal, Weekly cholecalciferol, 2,000 Units, Oral, Daily famotidine, 20 mg, Oral, Daily gabapentin, 100 mg, Oral, q12h insulin lispro, 0-12 Units, SubCUTAneous, TID WC And insulin lispro, 0-12 Units, SubCUTAneous, Nightly ipratropium-albuterol, 3 mL, Nebulization, 4x daily mometasone-formoterol, 2 puff, Inhalation, BID polyethylene glycol (PEG) 3350, 17 g, Oral, Daily sennosides, 2 tablet, Oral, BID sodium chloride 0.9%, 30 mL, IntraVENous, q6h sodium chloride, 4 mL, Nebulization, q12h tiotropium, 2 puff, Inhalation, Daily [3] PRN medications: dextrose, dextrose, glucagon (rDNA), glucose, HYDROmorphone, ipratropium-albuterol, melatonin, naloxone, ondansetron ODT OR ondansetron, oxyCODONE, oxyCODONE OR [DISCONTINUED] oxyCODONE, sodium chloride 0.9%, sodium chloride 0.9% [4] * Skylar Shearer - 04/23/2025 1:11 PM EDT Images from the original note were not included. PHYSICAL THERAPY [facility] Initial Evaluation Name/MRN: Lesli Abrams Connie ([id number]) Evaluation Date: 04/23/2025 Date of : 1940 Admission Date: 04/22/2025 11:45 PM Age: 85 y.o. Room/Bed: T2-/T2 A Discharge Recommendation: IP Rehab Equipment Needed: No (Pt uses walker to ambulate) Assessment IMPRESSION: Pt presents after a fall at home and sustained several injuries including a subdural hematoma, fx of ribs 3-7 on the L side, and fx of the L scaphoid. Pt was able to transition from supine to EOB with mod assist with complaints of pain in her L chest area (where her fx ribs are) and shoulders. Pt required repeated cueing to maintain her seated posture and she displayed impaired sitting balance due to pain. Pt the stood up, performed several exercises, and was transferred over to [facility]. Pt was then instructed on how to use an incentive spirometer and given instructions for frequency of use during the day. Pt is currently at high risk for falls and her pain is currently hermost limiting factor. Current discharge recommendation of IPR as pt could appropriately tolerate 3 hours of therapy per day. Admitting Diagnosis: Acute subdural hematoma, L 3-7 rib fx, non-displaced scaphoid fx of the wrist,R knee hematoma Prognosis: good Performance Deficits /Impairments: Increased Pain, Decreased Functional Mobility, Decreased ADL status, Decreased Strength, Decreased Endurance, Decreased Balance, Decreased ROM, and Decreased Posture Decision Making: Low Complexity Subjective Pt found in bed with granddaughter at bedside. Pt agreed to working with PT and was oriented x4. Ptstates that her pain is limiting her most currently and that she feels like it has gotten notably more difficult to breathe. When asked about using assistive devices at home, pt stated the used a rolling walker to ambulate at home and in the community. Pain: 0-10 pain scale: 8/10 Location: L ribs 3-7 Past Medical History: Medical History[1] Past Surgical History: Surgical History[2] Admission Diagnosis: Patient Active Problem List Diagnosis Date Noted Acute subdural hematoma (HCC) 04/23/2025 Fall 04/23/2025 Closed fracture of multiple ribs of left side with routine healing 04/23/2025 Closed fracture of left wrist 04/23/2025 Hematoma 04/23/2025 Chronic obstructive pulmonary disease (HCC) 08/24/2017 Lung nodule 06/28/2017 Pulmonary fibrosis (HCC) 06/01/2017 CONCEPCION (obstructive sleep apnea) 06/01/2017 Psoriatic arthritis (HCC) 06/01/2017 Medical Precautions: No active isolations Proper PPE donned/doffed in accordance with facility standards. Fall Risk: Curry Fall Risk Score: 75 (Low Risk) Curry Fall Risk Score: 75 (High Risk) Precautions/Restrictions: Left UE Weight Bearing: Non-Weight Bearing Lines/Drains/Airways: peripheral IV, tele, SpO2, BP cuff Family/Caregiver Present: granddaughter Overall Cognitive Status: WNL Overall Orientation Status: Oriented x4 Vision: Not Assessed, wears glasses for reading and and are being used during the eval Hearing: normal Social/Functional History Patient admitted from home. Lives With: Son Type of Home: single family home Home Layout: Single Level Home Home Access: Stairs to Enter with Rails (# of stairs: 4) and Ramped Entrance Bathroom Shower/Tub: Tub/Shower Combo and Shower Chair with Back Toilet: Standard and Grab Bars Home Equipment: front wheeled walker Homemaking Responsibilities: Independent Receives Help From: Family Active Scrap Metal Burner: N/A Prior Level of Function Prior Level of ADL Function: Required Assist Prior Level of Mobility: Independent; Device: Front wheeled walker Prior Level of Transfers: Independent Objective Lower Extremity Assessment AROM: Impaired: limited by pain PROM: Impaired: limited by pain Strength: Exceptions: limited by pain; even with LE movements Sensation: WFL Balance: Balance During Session: Posture: fair Sitting - Static: SBA Sitting - Dynamic: Contact Guard Standing - Static: Min Assist Standing - Dynamic: Min Assist Bed Mobility: Supine to sit: Min Assist Rolling to right: Min Assist Scooting: Contact Guard Transfers Sit to stand: Min Assist Stand to sit: Min Assist Bed to chair: Min Assist Ambulation Ambulation 1 Assistive device(s) used: Front wheeled walker Assist level: Min Assist Distance (ft): 3 to chair Quality of gait: step to pattern, shuffling, uneven step length, wide GALLO, slow carla, postural sway Balance During Session: Posture: fair Sitting - Static: SBA Sitting - Dynamic: Contact Guard Standing - Static: Min Assist Standing - Dynamic: Min Assist Exercises Comments: While seated, worked on sitting balance and correcting the pt's posture to midline for several minutes to maintain safety. Repeated tactile and verbal cues were used in posture training. Once standng, pt performed weight shifting and marching 10 time each leg to work on dynamic standing balance impairments noted due to pain. Also worked on incentive spirometry once seated in chair to prevent development of further breathing impairments. Pt was recommended they use the device once per hour while awake for at least 5 breaths to 750 mL. Outcome Measures AM-PAC How much HELP from another person do you currently need Turning from your back to your side while in a flat bed without using bedrails?: A Lot Moving from lying on your back to sitting on the side of a flat bed without using bedrails?: A Lot Moving to and from a bed to a chair (including a wheelchair)?: A Little Standing up from a chair using your arms (wheelchair or bedside chair)?: A Little Walking in a hospital room?: A Lot Stair climbing assessed?: No AM-PAC Inpatient Mobility Raw Score (No Stairs) : 12 [facility] Score: Transferred to chair/commode Plan Pt would benefit from skilled acute PT services to address Strengthening, ROM, Gait Training, Balance Training, Self-Care/ADL Training, Functional Mobility Training, Endurance Training, and Pain Management. Frequency: 3x/weekduring current hospital admission or until additional recommendations are made Barriers: Pain, Impaired balance, Lower extremity weakness, Upper extremity weakness, Decreased endurance, and New weightbearing/ROM restrictions Safety/Education Safety Safety Devices in place: All fall risk precautions in place, call light within reach, left in chair, gait belt, nurse notified, and no alarms engaged upon entry Restraints: No Education Education Given To: patient and granddaughter Education Provided: PT Role, PT Goals, Precautions, and Bracing Education Method: Verbal Barriers to Learning: None Education Outcome: Verbalized Understanding and Demonstrated Understanding Goals Patient Stated Goal: Patient would like to return home. Encounter Problems Encounter Problems (Active) Balance Patient will maintain dynamic standing balance for 3 minutes with CGA in order to demonstrate decreased risk of falling. Start: 04/23/25 Expected End: 05/14/25 Mobility Patient will ambulate 30 feet with CGA and rolling walker in order to improve safety and independence with mobility. Start: 04/23/25 Expected End: 05/14/25 Transfers Patient will perform bed mobility with CGA in order to improve independence and prepare for out of bed mobility. Start: 04/23/25 Expected End: 05/14/25 Patient will complete sit to stand transfer with CGA to wheeled walker in order to improve safety and prepare for out of bed mobility. Start: 04/23/25 Expected End: 05/14/25 Therapy Time Individual Co-Treatment Co-Evaluation Time In 1108 Time Out 1141 Minutes 33 Timed Code Treatment Minutes: 8 Minutes (FA) MIGUEL Moscoso Patient's Physical Therapy Plan of Care supervision is transferred to a [facility] Therapy Services Physical Therapist. Goals and/or treatment plan was established in collaboration with patient/family/other representatives. [1] Past Medical History: Diagnosis Date Arthritis Atrial fibrillation (HCC) Chronic obstructive pulmonary disease (HCC) 08/24/2017 Chronic pain Congestive heart failure (CHF) (HCC) GERD (gastroesophageal reflux disease) Hypertension Osteoarthritis Pain management Psoriasis [2] Past Surgical History: Procedure Laterality Date ABDOMINAL SURGERY bladder bowel all dropped APPENDECTOMY BACK SURGERY BLADDER SUSPENSION BRONCHOSCOPY (HISTORICAL) 06/28/2017 Bronch ENB CHOLECYSTECTOMY COLONOSCOPY FINGER SURGERY HERNIA REPAIR 1959' umbilical SHOULDER SURGERY Right SPINE SURGERY 1984 TOTAL ABDOMINAL HYSTERECTOMY UPPER GASTROINTESTINAL ENDOSCOPY Cosigned by Morales Turner PT at 04/23/2025 3:28 PM EDT * Victorina Garsia, SHUTTLE DRIVER - RN HEMODIALYSIS - 04/23/2025 6:42 AM EDT Images from the original note were not included. Daily Trauma Progress Note ROB 04/23/2025 6:43 AM Admit Date: 04/22/2025 Post Trauma Day 1 Fall of unknown etiology HISTORY OF TRAUMATIC EVENT: 85 y.o. female status post fall from standing height the incident happened around afternoon on 04/22.The patient was walking through her living room after folding some laundry and fell to the ground striking her right knee and left chest. She is unable to identify the cause of her fall however she does report that she was feeling somewhat dizzy and had a headache throughout the day preceding the fall. She denies any loss of consciousness. Her pain is currently 8/10. She is on Xarelto for A-fib. Patient initially presented to [facility] and was found to have a subdural hematoma 6 mm. She was givenPCC prior to transfer for direct admission to T2 ICU. INJURIES: Acute traumatic left frontal and anterior hemispheric subdural hematoma 6mm, no mass effect Acute traumatic left 3 through 7 rib fractures Nondisplaced fracture of the left scaphoid waist Right knee hematoma Imaging reviewed and independently interpreted: CT chest reviewed -multiple acute/chronic rib fractures --> suspect acute 3 through 7 rib fractures anterior on the L CTH - left frontal and interhemispheric subdural hematoma measuring 6 mm without mass effect PROCEDURES: none INCIDENTAL FINDINGS: Chronic compression fractures of T8, L1 and L2 CHIEF COMPLAINT: L shoulder pain Headache R knee pain L rib pain PREVIOUS 24 HOUR EVENTS: Direct admit from [facility] Consults: IP CONSULT TO WOUND PREVENTION IP CONSULT TO ORTHOPAEDIC SURGERY IP CONSULT TO GERIATRICS IP CONSULT TO PALLIATIVE CARE IP CONSULT TO NEUROSURGERY MEDICATIONS: Current Medications[1] ARE THERE PERTINENT UPDATES TO PAST,FAMILY, OR SOCIAL HISTORY?: No Subjective: Patient states she does not know why she fell, she has a slight headache with L shoulder and rib pain this am. Review of Systems Constitutional: Positive for activity change. HENT: Negative. Eyes: Negative. Respiratory: Positive for shortness of breath (with excertion). Cardiovascular: Positive for chest pain (L rib pain). Gastrointestinal: Negative. Genitourinary: Negative. Musculoskeletal: Positive for arthralgias, gait problem, joint swelling and myalgias. Skin: Positive for wound (R knee abrasion). Neurological: Positive for dizziness (intermittent) and headaches. Negative for facial asymmetry, speech difficulty, weakness and light-headedness. Hematological: Bruises/bleeds easily. Psychiatric/Behavioral: Negative for agitation, behavioral problems and confusion. PC-PTSD-5 Had nightmares about the event(s) or thought about the event(s) when you did not want to? No 2. Tried hard not to think about the event(s) or went out of your way to avoid situations that reminded you of the event(s)? No 3. Been constantly on guard, watchful, or easily startled? No 4. Amorita numb or detached from people, activities, or your surroundings? No 5. Amorita guilty or unable to stop blaming yourself or others for the event(s) or any problems the event(s) may have caused? No If yes to 3 or more, [address] CLP consult PHQ In the last 2 weeks have you had: Little interest or pleasure in doing things No Been feeling down, depressed, or hopeless No If greater then 0, place CLP consult Date PHQ completed: 04/23/25 Objective: Patient Vitals for the past 24 hrs: BP Temp Temp src Pulse Resp SpO2 04/23/25 0400 117/58 36.8 C (98.3 F) Temporal 77 14 96 % 04/23/25 0300 124/70 -- -- 75 16 96 % 04/23/25 0252 -- -- -- 71 19 95 % 04/23/25 0200 141/87 -- -- 81 17 97 % 04/23/25 0100 131/75 -- -- 69 16 96 % 04/23/25 0000 152/89 36.7 C (98.1 F) Temporal 70 15 95 % No intake or output data in the 24 hours ending 04/23/25 0643 No intake/output data recorded. 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 Constitutional: General: She is not in acute distress. Appearance: Normal appearance. She is not ill-appearing or toxic-appearing. HENT: Head: Normocephalic. Comments: Ecchymosis R temporal region Right Ear: External ear normal. Left Ear: External ear normal. Nose: Nose normal. Mouth/Throat: Mouth: Mucous membranes are moist. Eyes: Extraocular Movements: Extraocular movements intact. Conjunctiva/sclera: Conjunctivae normal. Cardiovascular: Rate and Rhythm: Normal rate. Pulses: Normal pulses. Pulmonary: Effort: Pulmonary effort is normal. No respiratory distress. Chest: Chest wall: Tenderness present. Abdominal: General: Bowel sounds are normal. There is no distension. Palpations: Abdomen is soft. Tenderness: There is no abdominal tenderness. Musculoskeletal: General: Swelling, tenderness and signs of injury present. Cervical back: Normal range of motion and neck supple. No tenderness. Comments: R knee hematoma with abrasion L thumb spica velcro splint Limited ROM LUE-->L shoulder pain Skin: General: Skin is warm and dry. Capillary Refill: Capillary refill takes 2 to 3 seconds. Findings: Bruising present. Neurological: General: No focal deficit present. Mental Status: She is alert and oriented to person, place, and time. Mental status is at baseline. Cranial Nerves: No cranial nerve deficit. Psychiatric: Mood and Affect: Mood normal. Behavior: Behavior normal. Sutures or krissy? No O2: 6L NC, wean to keep 88-92% (wears 2L NC intermittently at home) / / / Data Review Data CBC with Differential: Lab Results Component Value Date WBC 10.1 04/23/2025 RBC 4.10 04/23/2025 HGB 13.6 04/23/2025 HCT 42.4 04/23/2025 PLT 166 04/23/2025 CMP: Lab Results Component Value Date NA 137 04/23/2025 K 3.9 04/23/2025 CL 107 04/23/2025 CO2 25 04/23/2025 BUN 16 04/23/2025 CREATININE 0.44 (L) 04/23/2025 GLUCOSE 101 04/23/2025 CALCIUM 8.5 (L) 04/23/2025 BMP: Hepatic Function Panel:Ionized Calcium: No components found for: "IONCA" Magnesium: No results found for: "MG" Phosphorus: No results found for: "PHOS" PT/INR: No results found for: "PROTIME", "INR" PTT: No results found for: "APTT"[APTT Last 3 Troponin: No results found for: "TROPONINI" Urine Culture: No components found for: "CURINE" Blood Culture: No components found for: "CBLOOD", "CFUNGUSBL" Blood Culture from Central Line: No components found for: "CBLOODLN" Stool Culture: No components found for: "CSTOOL" Sputum Culture: No components found for: "CSPUTUM" Sputum Culture for AFB: No components found for: "CAFBSM" Wound Culture: na Radiology: XR hand 1 or 2 views left Result Date: 04/23/2025 Patient Name: LESLI ROSALES : 1940 Exam Date/Time: 04/23/2025 02:22 Procedure: XR HAND 1-2 VIEWS LEFT Ordering Provider: GONZALEZ KATIE Reason For Exam: trauma LEFT HAND: CLINICAL INDICATION: trauma. Injury with pain TECHNIQUE: PA, Lat COMPARISON: None. FINDINGS: Artifacts overlie the hand and wrist. There is no fracture or dislocation. Minimal spurring and narrowing is noted about the DIP and PIP joints along with the firstcarpometacarpal joint. No bone lesion is identified. There is no other soft tissue abnormality. No acute abnormality. Minimal degree of osteoarthritis. Report Dictated on Electronically Signed By: Harpreet Hood MD Electronically Signed Date/Time: 04/23/2025 3:16 AM EDT Problem List[2] ASSESSMENT: 85-year-old female status post fall of uncertain etiology from standing height on Xarelto. Presented to [facility] found to have left frontal and interhemispheric subdural hematoma measuring 6 mm without mass effect, as well as concern for acute left rib fractures on personal review of imaging and by comparison with exam most concerning for left 3rd through 7th rib fractures as well as a left scaphoid fx. PLAN: Neuro/Spine: -Neurosurgery consulted, recommend the following: Repeat CT head showed improvement in right frontal SDH. Interhemispheric SDH noted on first CT. CT as above No neurosurgical intervention indicated Continue to hold OAC (xarelto) until OP follow up May start DVT ppx in 48 hrs No need for AED CT head in 1-2 weeks OP Will sign off-info in AVS - Pain control: Tylenol, gabapentin, Oxy prn, Dilaudid for breakthrough, Eve - Home Baclofen - Hold home Percocet (Tylenol and Oxy) - Home Buprenorphine patch weekly - Palliative consult - Geriatrics consult - APS consult-->rib block, HOLD Xarelto X 72hrs HEENT: - no concerns Cardiovascular: - Hemodynamically stable - Home Atenolol 25mg daily - BP Goal <160 SBP - Telemetry - orthostatic Bps pending - EKG pending - Repeat Echo pending; last 02/11/21 echo EF 68% - HOLD Xarelto-->rib block pending following 72hr hold Pulmonary: -# Acute left 3rd through 7th rib fractures - Multimodal pain control as above - Daily chest x-rays - Aggressive pulm toilet with incentive spirometry and AccuPAP - Home Symbicort-->substitute Dulera - Home Spiriva - 3% nebs Q12 - Duonebs QID and prn #COPD - standard O2 protocol; patient on as needed oxygen at home, O2 goal SpO2 greater than 88% - wears home oxygen at 2L NC intermittently FEN/GI: - Carb control diet - Zofran PRN - bowel regimen - Home Vit D - Daily BMP, CBC : - CrCl cannot be calculated (Unknown ideal weight.). - No acute issues - Monitor I/Os - Goal UOP > 0.5 ml/kg/hr Heme: - Hgb stable - No transfusions indicated ID: - No acute issues - No antibiotics indicated Endo: - HoLd home Jardiance - Humalog sliding scale AC&HS - MBS checks AC&HS Lines/Devices: - PIV - L velcro thumb spica splint Prophylaxis: DVT: SCDs Has DVT PPX been started? No If no, why? Patient with Acute Head Bleed GI: home Pepcid Pressure Ulcer: reposition Q2 Musculoskeletal: #left scaphoid fx Ortho consult: Patient is nontender in the left anatomic snuffbox and there is no evidence of acute fracture of the left scaphoid on scaphoid view. She has tenderness with motion of her shoulder. It is unclear if this is referred from her rib fractures or if this is an exacerbation of left shoulder osteoarthritiscausing pain with motion. Regardless, there are no fractures of the proximal left humerus where thepatient is experiencing pain. -No acute intervention for left shoulder pain. Recommend pain management through the primary service. -Patient given left upper extremity sling and left removable thumb spica brace for comfort -There is a sizable right knee hematoma following a fall on Xarelto. There are no associated fractures on right knee x-ray. Patient is nontender on the bony prominences of the right knee. -No acute intervention for a right knee hematoma without fracture. Recommend compressive dressing for comfort and to aid in hematoma resolution. -Weightbearing as tolerated -Activity as tolerated -Ice & elevate -Neurovascular checks -Skin checks -Follow-up outpatient - Pain and medical management per trauma -Orthopaedic surgery will sign off. Please page office 365 consultant orthopaedic resident for questions or concerns. WB Status: RUE:at LUE: NWB RLE: at LLE: at Is the patient in restraints?: na Medications Reconciled- Yes [x] NO [], why Disposition: Transfer to 3W, Q4hr Neurochecks. PT/OT recs pending. Pulmonary hygiene, wean oxygen to keep 88-92%. Dispo planning [1] Current Facility-Administered Medications: acetaminophen (Tylenol) tablet 1,000 mg, 1,000 mg, Oral, q8h, Marsha Skniner MD, 1,000 mg at 04/23/25 0222 atenolol (Tenormin) tablet 25 mg, 25 mg, Oral, Daily, Marsha Skinner MD baclofen (Lioresal) tablet 5 mg, 5 mg, Oral, TID, Marsha Skinner MD dextrose 5 % infusion, 100 mL/hr, IntraVENous, PRN, Marsha Skinner MD dextrose 50 % solution 12.5 g, 12.5 g, IntraVENous, PRN, Marsha Skinner MD gabapentin (Neurontin) capsule 100 mg, 100 mg, Oral, TID, Marsha Skinner MD glucagon (human recombinant) injection 1 mg, 1 mg, IntraMUSCular, PRN, Marsha Skinner MD glucose oral gel 15 g, 15 g, Oral, PRN, Marsha Skinner MD HYDROmorphone (Dilaudid) injection 0.25 mg, 0.25 mg, IntraVENous, q3h PRN OR HYDROmorphone (Dilaudid) injection 0.5 mg, 0.5 mg, IntraVENous, q3h PRN, Marsha Skinner MD, 0.5 mg at 04/23/25221 Insulin Lispro (Humalog) injection 0-12 Units, 0-12 Units, SubCUTAneous, TID WC AND Insulin Lispro (Humalog) injection 0-12 Units, 0-12 Units, SubCUTAneous, Nightly, Marsha Skinner MD ipratropium-albuterol (Duo-Neb) 0.5-2.5 mg/3 mL nebulizer solution 3 mL, 3 mL, Nebulization, TID, Marsha Skinner MD ipratropium-albuterol (Duo-Neb) 0.5-2.5 mg/3 mL nebulizer solution 3 mL, 3 mL, Nebulization, PRN, Marsha Skinner MD mometasone-formoterol (Dulera 100) 100-5 MCG/ACT inhaler 2 puff, 2 puff, Inhalation, BID, Marsha Skinner MD mupirocin (Bactroban) 2 % ointment 1 Application, 1 Application, Nasal, BID, Marsha Skinner MD, 1 Application at 04/23/25 0301 naloxone (Narcan) injection 0.4 mg, 0.4 mg, IntraVENous, PRN, Marsha Skinner MD ondansetron ODT (Zofran-ODT) disintegrating tablet 4 mg, 4 mg, Oral, q8h PRN OR ondansetron (Zofran) injection 4 mg, 4 mg, IntraVENous, q6h PRN, Marsha Skinner MD, 4 mg at 04/23/25 0405 oxyCODONE (Roxicodone) immediate release tablet 5 mg, 5 mg, Oral, q4h PRN OR oxyCODONE (Roxicodone) immediate release tablet 10 mg, 10 mg, Oral, q4h PRN, Marsha Skinner MD, 10 mg at 04/23/25 0402 polyethylene glycol (PEG) 3350 (Miralax) packet 17 g, 17 g, Oral, Daily, Marsha Skinner MD sodium chloride 0.9 % infusion, 75 mL/hr, IntraVENous, Continuous, Marsha Skinner MD, Last Rate: 75 mL/hr at 04/23/25 0300, 75 mL/hr at 04/23/25 0300 sodium chloride 0.9% (NS) flush 30 mL, 30 mL, IntraVENous, q6h, Marsha Skinner MD, 30 mL at sodium chloride 0.9% (NS) flush 30 mL, 30 mL, IntraVENous, PRN, Marsha Skinner MD sodium chloride 0.9% (NS) flush 30 mL, 30 mL, IntraVENous, PRN, Marsha Skinner MD [2] Patient Active Problem List Diagnosis Pulmonary fibrosis (HCC) Lung nodule Chronic obstructive pulmonary disease (HCC) CONCEPCION (obstructive sleep apnea) Psoriatic arthritis (HCC) Acute subdural hematoma (HCC) Fall Closed fracture of multiple ribs of left side with routine healing Closed fracture of left wrist Hematoma * Domonique Gonzalez MD - 04/23/2025 12:42 AM EDT I was notified by the resident that the patient had arrived on T2 as a Direct Admit. I immediately came to T2 ICU to evaluate patient. I was at the bedside within 15 minutes of patient arrival. Please see H&P for further details. documented in this [facility]09-08-2025 NoteCare Management Progress Note Short Medical why still here: Pt on 3W s/p fall SDH L 3-7 rib fxs. L wrist fx, R knee hta. Planned Discharge Disposition: [facility], still on IV pain meds will follow up on Monday. Barriers/Today we still Wait: Facility pre-cert (need updated notes from PT/OT to start precert) Length of Stay (Days): 6 GMLOS: 3 [facility]09-08-2025 Progress note* Care Coordination - Rebekah Escalona RN - 04/28/2025 11:15 AM EDT Care Management Progress Note Short Medical why still here: Pt on 3W s/p fall SDH L 3-7 rib fxs. L wrist fx, R knee hta. Planned Discharge Disposition: Inpatient Rehab Facility ([facility]) can accept pt, still on IV pain meds will follow up on Monday. Barriers/Today we still Wait: Facility pre-cert (need updated notes from PT/OT to start precert) Length of Stay (Days): 6 [id number] Telephone encounter Note* Telephone Encounter - Allegra Shi RN - 04/28/2025 8:20 AM EDT [id number] Miscellaneous Notes* Telephone Encounter - Allegra Shi RN - 04/28/2025 8:20 AM EDT Currently admitted * Telephone Encounter - Alicia Arredondo DO - 04/25/2025 4:01 PM EDT Seen inpatient for hematuria. Had CTU. Needs outpatient cysto. Thanks! documented in this [facility]09-06-2025 Nurse Note* Ana Wynne RN - 04/26/2025 10:00 PM EDT Bed bath performed by Alyssa [facility], linens changed, lotion applied to patient's skin after. Patient very happy. Call light within reach. [id number] NoteBrief Orthopedic Progress Note Ortho paged by trauma for pt complaints of persistent shoulder pain. XR L shoulder: There is no acute fracture or dislocation of the left proximal humerus clavicle or acromion. There is mild arthritic change of the AC joint. Humeral head is reduced within the glenoid fossa. Patient was previously seen by the orthopedic team on 04/23/2025 and found to have left shoulder osteoarthritis right knee hematoma. Patient was updated on her diagnoses and plan of care which for now will be pain control per primary team and outpatient patient follow-up as needed if she continues to have shoulder pain following hospital discharge. No acute operative intervention is indicated. Please see prior orthopedic consult note for full orthopedic plan of care Angie Tran MD Orthopaedic Surgery PGY-2 [facility]09-06-2025 [facility] Respiratory Care Department Progress Note As part of the Respiratory Assessment Program (RAP), the following Respiratory Therapist evaluation has been completed, including a chart review and clinical/physical assessment. Respiratory Therapist RAP Evaluation Guideline Points 0 1 2 3 4 Points Strongly Consider History Factor No Pulmonary conditions Stable Pulmonary condition(s) Surgery or Intervention that may impact Pulmonary system (at risk) Surgery or Intervention that is impacting Pulmonary system Active Exacerbation of Pulmonary Condition 1 Respiratory Pattern Regular, RR= 12-18 GOODWIN or Increased RR= 19-24 Irregular, or RR= 25-30 SOB, talk in short sentences, or RR= 31-35 Severe SOB, accessory muscle use, one word answers, or RR>35 0 Aerosol Med(s), High Flow O2 Breath Sounds Clear Diminished in 1 lobe Diminished in <= 2 lobes Adventitious breath sounds Coarse crackles, Wheezes, or Diminished in >2 lobes 0 Aerosol Med(s), Bronchial Hygiene, Hyperinflation Cough & Sputum Strong cough, no secretion retention or production Weak cough, no secretion retention or production Weak cough, w/ production (less often than Q2hr), or secretion retention No cough, w/ secretion retention or production (less often than Q2hr) Significant secretion production (more often than Q2hr) or mucus plug 0 Aerosol Med(s), Bronchial Hygiene, Hyperinflation Level of Activity Ambulatory Ambulatory with Assist Up in chair or edge of bed (dangle) Non-ambulatory, bedridden with active ROM Completely paralyzed or without active ROM 1 Triage 5 0-2 Triage 4 3-5 Triage 3 6-10 Triage 2 11-14 Triage 1 >=15 Total 2 Triage Score = 5 TRIAGE SCORING - SUGGESTED FREQUENCIES Aerosol Therapy Bronchial Hygiene Hyperinflation Triage Score Q4h & PRN 1 Q4hWA (QID) & PRN 2 TID & PRN 3 BID & PRN 4 PRN 5 Therapy(s) Indicated Yes/No Aerosol Medication y Hyperinflation Bronchial Hygiene High Flow Oxygen Flow Rates PEF (L/Sec) IVC FVC FEV1 FEV1/FVC Patient instructed and returned demonstration on use of MDI (with spacer, as appropriate) None RT to enter/modify frequency of treatment order in EMR/EHR to match this RAP evaluation. Based on this RAP evaluation the following therapy is being initiated: Duoneb At the following frequency: Q12 Comments: HTS is Q12, making duoneb aligned with HTS Thank you for involving Respiratory in the care of this patient, [facility]09-05-2025 Telephone encounter Note* Telephone Encounter - Alicia Arredondo DO - 04/25/2025 4:01 PM EDT Seen inpatient for hematuria. Had CTU. Needs outpatient cysto. Thanks! [facility] Work Phone: [phone] NoteCare Management Progress Note Short Medical why still here: Pt on 3W s/p fall SDH L 3-7 rib fxs. L wrist fx, R knee hta. Planned [facility] Dis[facility], still on IV pain meds will follow up on Monday. Barriers/Today we still Wait: Administering IV medications, Clinical stability (pain control) Length of Stay (Days): 3 GMLOS: No GMLOS Documented [facility]09-05-2025 Progress note* Care Coordination - Rebekah Escalona RN - 04/25/2025 11:41 AM EDT Care Management Progress Note Short Medical why still here: Pt on 3W s/p fall SDH L 3-7 rib fxs. L wrist fx, R knee hta. Planned Discharge Disposition: Inpatient Rehab Facility ([facility]) can accept pt, still on IV pain meds will follow up on Monday. Barriers/Today we still Wait: Administering IV medications, Clinical stability (pain control) Length of Stay (Days): 3 GMLOS: No GMLOS Documented [facility]09-05-2025 NotePeripheral Block Time Out: 04/25/2025 9:25 AM Start time: 04/25/2025 9:26 AM End time: 04/25/2025 9:33 AM Reason for block: procedure for pain and Acute pain service Staffing Performed: IDENTIFICATION CLERK Resident/IDENTIFICATION CLERK: Jitendra Palma APRN - DEVON Preanesthetic Checklist Completed: patient identified, IV checked, site marked, risks and benefits discussed, surgical consent and timeout performed Region: Truncal Primary: Erector Spinae Laterality: Left Patient position: right lateral decubitus Prep: ChloraPrep Patient monitoring: continuous pulse ox O2: Nasal cannula Injection technique: single-shot Guidance: ultrasound guided - tip of the needle identified by ultrasound during injection Needle Needle: 21G X 110 mm Additional Notes T5 level injection Assessment Injection assessment: negative aspiration for heme and incremental injection Heart rate change: no Slow fractionated injection: yes Required Documentation: Relevant anatomy identified (Nerves, Vessels, Muscles), Local anesthetic spread visualized around nerves or plane., No EKG changes noted, Negative for blood on aspiration, Local anesthetic injected incrementally with intermittent aspiration every 5 mL, No symptoms of toxicity, No paresthesias reported by patient during injection and Normal resistance with injection Medications [id number]-mynzgalrsyk-suachyxlqxj (TAP) syringe - Injection 20 mL - 04/25/2025 9:26:00 AM bupivacaine liposome (Exparel) 1.3 % injection - Injection 20 mL - 04/25/2025 9:26:00 AM lidocaine PF (Xylocaine) 2 % injection - Infiltration 5 mL - 04/25/2025 9:26:00 [facility] [id number] Consult note* Alicia Arredondo, - 04/24/2025 5:05 PM EDTAssociated Order(s): IP CONSULT TO UROLOGY Urology Inpatient Consultation 04/24/2025 HISTORY OF PRESENT ILLNESS: The patient is a 85 y.o.female who is admitted for fall. Past medical history as listed below. Patient is unknown to our service. Urology is consulted this admission for hematuria, post tauma day 2 . Today, patient reports voiding well. Has external catheter. Noticed hematuria one time prior after a fall. Improved on its own after ~1mo. No other urinary complaints at this time. Feels as though she empties well. Has not noticed any clots. Urologic history: No prior PAST MEDICAL HISTORY: Medical History[1] PAST SURGICAL HISTORY: Surgical History[2] ALLERGIES: Allergies[3] CURRENT MEDICATIONS: Current Medications[4] FAMILY HISTORY: Family History[5] Social History: Social History Socioeconomic History Marital status: Spouse name: Not on file Number of children: Not on file Years of education: Not on file Highest education level: Not on file Occupational History Not on file Tobacco Use Smoking status: Former Current packs/day: 0.00 Average packs/day: 1 pack/day for 17.0 years (17.0 ttl pk-yrs) Types: Cigarettes Start date: 05/29/1959 Quit date: 05/29/1976 Years since quittin.9 Smokeless tobacco: Never Vaping Use Vaping status: Never Used Substance and Sexual Activity Alcohol use: No Drug use: No Sexual activity: Not on file Other Topics Concern Not on file Social History Narrative Not on file Social Drivers of Health Financial Resource Strain: Not on file Food Insecurity: Not on file Transportation Needs: No Transportation Needs (04/23/2025) PRAPARE - Transportation Lack of Transportation (Medical): No Lack of Transportation (Non-Medical): No Physical Activity: Not on file Stress: Not on file Social Connections: Not on file Intimate Partner Violence: Not At Risk (04/23/2025) Humiliation, Afraid, Rape, and Kick questionnaire Fear of Current or Ex-Partner: No Emotionally Abused: No Physically Abused: No Sexually Abused: No Housing Stability: Low Risk (04/23/2025) Housing Stability Vital Sign Unable to Pay for Housing in the Last Year: No Number of Times Moved in the Last Year: 1 Homeless in the Last Year: No ROS: See HPI PHYSICAL EXAM: VITALS: BP 112/59 (BP Location: Right arm, Patient Position: Sitting) Pulse 75 Temp 36.7 C (98.1 F) (Temporal) Resp 19 Ht 5' (1.524 m) Wt 143 lb 1.3 oz (64.9 kg) SpO2 95% BMI 27.94 kg/m General: Alert, in no acute distress Respiratory: no respiratory distress, normal effort Abdomen: soft, non distended, non tender : no suprapubic tenderness. Ext cath in place draining turbid red-orange urine DATA: LABS: BMP: Lab Results Component Value Date GLUCOSE 91 04/24/2025 CALCIUM 8.7 (L) 04/24/2025 NA 141 04/24/2025 K 4.2 04/24/2025 CO2 28 04/24/2025 CL 108 (H) 04/24/2025 BUN 19 04/24/2025 CREATININE 0.51 (L) 04/24/2025 CBC: Lab Results Component Value Date WBC 11.3 (H) 04/24/2025 HGB 13.8 04/24/2025 HCT 44.6 04/24/2025 MCV 106.2 (H) 04/24/2025 PLT 157 04/24/2025 Urinalysis: No results found for: "UA" Urine Culture: No components found for: "UCX" RADIOLOGY: Reviewed. IMPRESSION & PLAN: 85 y.o. female with gross hematuria - Labs and imaging reviewed - trend daily labs - Cr @baseline - UA +for infxn - check urine culture (p) - No acute urologic surgical intervention at this time - IV Abx - start ancef - adjust per culture results - obtain PVR - Optimize pain/nausea control - Monitor fevers/hypotension - Remainder of care per primary team - Urology will sign off at this time - follow up outpatient prn - Please re-engage with any questions or concerns Alicia Arredondo DO Urology PGY-2 04/24/2025 5:05 PM Please page Senior Drafter Urology Resident with questions [1] Past Medical History: Diagnosis Date Arthritis Atrial fibrillation (HCC) Chronic obstructive pulmonary disease (HCC) 08/24/2017 Chronic pain Congestive heart failure (CHF) (HCC) GERD (gastroesophageal reflux disease) Hypertension Osteoarthritis Pain management Psoriasis [2] Past Surgical History: Procedure Laterality Date ABDOMINAL SURGERY bladder bowel all dropped APPENDECTOMY BACK SURGERY BLADDER SUSPENSION BRONCHOSCOPY (HISTORICAL) 06/28/2017 Bronch ENB CHOLECYSTECTOMY COLONOSCOPY FINGER SURGERY HERNIA REPAIR 1960's umbilical SHOULDER SURGERY Right SPINE SURGERY 1984 TOTAL ABDOMINAL HYSTERECTOMY UPPER GASTROINTESTINAL ENDOSCOPY [3] No Known Allergies [4] Current Facility-Administered Medications: acetaminophen (Tylenol) tablet 1,000 mg, 1,000 mg, Oral, q8h, LAVELLE Shaffer CNP, 1,000 mg at 04/24/25516 atenolol (Tenormin) tablet 25 mg, 25 mg, Oral, Daily, LAVELLE Shaffer CNP, 25 mg at 817 baclofen (Lioresal) tablet 5 mg, 5 mg, Oral, Nightly, LAVELLE Jones CNP, 5 mg at 029 buprenorphine (Butrans) 5 MCG/HR 5 mcg, 5 mcg, TransDERmal, Weekly, LAVELLE Jones CNP, 5 mcg at 04/24/25 1040 cholecalciferol (Vitamin D-3) tablet 2,000 Units, 2,000 Units, Oral, Daily, Victorina Garsia APRN - MARJ, 2,000 Units at 04/24/25 0817 dextrose 5 % infusion, 100 mL/hr, IntraVENous, PRN, Vitcorina Garsia APRN - MARJ dextrose 50 % solution 12.5 g, 12.5 g, IntraVENous, PRN, Victorina Garsia APRN - MARJ famotidine (Pepcid) tablet 20 mg, 20 mg, Oral, Daily, Victorina Garsia APRN - MARJ, 20 mg at 817 gabapentin (Neurontin) capsule 100 mg, 100 mg, Oral, q12h, Victorina Garsia APRN - RN HEMODIALYSIS, 100 mg at 04/24/25 0821 glucagon (human recombinant) injection 1 mg, 1 mg, IntraMUSCular, PRN, Victorina Garsia APRN - MARJ glucose oral gel 15 g, 15 g, Oral, PRN, Victorina Garsia APRN - RN HEMODIALYSIS HYDROmorphone (Dilaudid) injection 0.5 mg, 0.5 mg, IntraVENous, q4h PRN, Ninfa Colindres MD, 0.5 mg at 04/24/25 1703 Insulin Lispro (Humalog) injection 0-12 Units, 0-12 Units, SubCUTAneous, TID WC AND Insulin Lispro (Humalog) injection 0-12 Units, 0-12 Units, SubCUTAneous, Nightly, LAVELLE Shaffer CNP ipratropium-albuterol (Duo-Neb) 0.5-2.5 mg/3 mL nebulizer solution 3 mL, 3 mL, Nebulization, q2h PRN, Victorina Garsia APRN - RN HEMODIALYSIS, 3 mL at 04/24/25 0528 [START ON 04/25/2025] ipratropium-albuterol (Duo-Neb) 0.5-2.5 mg/3 mL nebulizer solution 3 mL, 3 mL, Nebulization, BID, Domonique Gonzalez MD melatonin tablet 3 mg, 3 mg, Oral, Nightly PRN, LAVELLE Jones CNP mometasone-formoterol (Dulera 100) 100-5 MCG/ACT inhaler 2 puff, 2 puff, Inhalation, BID, LAVELLE Shaffer CNP, 2 puff at 04/24/25 0822 naloxone (Narcan) injection 0.4 mg, 0.4 mg, IntraVENous, PRN, Victorina Garsia APRN - MARJ ondansetron ODT (Zofran-ODT) disintegrating tablet 4 mg, 4 mg, Oral, q8h PRN OR ondansetron (Zofran) injection 4 mg, 4 mg, IntraVENous, q6h PRN, LAVELLE Shaffer CNP, 4 mg at 04/23/25 0405 oxyCODONE (Roxicodone) immediate release tablet 10 mg, 10 mg, Oral, q4h PRN, Ninfa Colindres MD, 10 mg at 04/24/25 1703 oxyCODONE (Roxicodone) immediate release tablet 5 mg, 5 mg, Oral, q4h PRN, 5 mg at 04/24/25 1040 OR [DISCONTINUED] oxyCODONE (Roxicodone) immediate release tablet 10 mg, 10 mg, Oral, q4h PRN, Marsha Skinner MD, 10 mg at 04/23/25 0402 polyethylene glycol (PEG) 3350 (Miralax) packet 17 g, 17 g, Oral, Daily, LAVELLE Shaffer CNP, 17 g at 04/24/25 0816 sennosides (Senokot) tablet 17.2 mg, 2 tablet, Oral, BID, Victorina Garsia APRN - MARJ, 17.2 mg at 04/24/25 0817 sodium chloride 0.9% (NS) flush 30 mL, 30 mL, IntraVENous, q6h, Victorina Garsia APRN - MARJ, 30 mL at 04/24/25 0825 sodium chloride 0.9% (NS) flush 30 mL, 30 mL, IntraVENous, PRN, Victorina Garsia APRN - RN HEMODIALYSIS sodium chloride 0.9% (NS) flush 30 mL, 30 mL, IntraVENous, PRN, Victorina Garsia APRN - MARJ sodium chloride 3 % hypertonic nebulizer solution 4 mL, 4 mL, Nebulization, q12h, Victorina LAVELLE Garsia CNP, 4 mL at 04/24/25 0817 tiotropium (Spiriva Respimat) 2.5 MCG/ACT inhaler 2 puff, 2 puff, Inhalation, Daily, Victorina LAVELLE Garsia CNP, 2 puff at 04/24/25 0816 [5] Family History Adopted: Yes Problem Relation Name Age of Onset Chronic bronchitis Mother Emphysema Mother Cosigned by Hi Bear MD at 04/25/2025 3:16 PM EDT Associated attestation - Hi Bear MD - 04/25/2025 3:16 PM EDT I saw and evaluated the patient, participating in the romero portions of the service. I reviewed the resident s note. I agree with the resident s findings and plan. Hi Bear MD [facility] Work Phone: [phone] Consult note* Alicia Arredondo DO - 04/24/2025 5:05 PM EDTAssociated Order(s): IP CONSULT TO UROLOGY Urology Inpatient Consultation 04/24/2025 HISTORY OF PRESENT ILLNESS: The patient is a 85 y.o.female who is admitted for fall. Past medical history as listed below. Patient is unknown to our service. Urology is consulted this admission for hematuria, post tauma day 2 . Today, patient reports voiding well. Has external catheter. Noticed hematuria one time prior after a fall. Improved on its own after ~1mo. No other urinary complaints at this time. Feels as though she empties well. Has not noticed any clots. Urologic history: No prior PAST MEDICAL HISTORY: Medical History[1] PAST SURGICAL HISTORY: Surgical History[2] ALLERGIES: Allergies[3] CURRENT MEDICATIONS: Current Medications[4] FAMILY HISTORY: Family History[5] Social History: Social History Socioeconomic History Marital status: Spouse name: Not on file Number of children: Not on file Years of education: Not on file Highest education level: Not on file Occupational History Not on file Tobacco Use Smoking status: Former Current packs/day: 0.00 Average packs/day: 1 pack/day for 17.0 years (17.0 ttl pk-yrs) Types: Cigarettes Start date: 05/29/1959 Quit date: 05/29/1976 Years since quittin.9 Smokeless tobacco: Never Vaping Use Vaping status: Never Used Substance and Sexual Activity Alcohol use: No Drug use: No Sexual activity: Not on file Other Topics Concern Not on file Social History Narrative Not on file Social Drivers of Health Financial Resource Strain: Not on file Food Insecurity: Not on file Transportation Needs: No Transportation Needs (04/23/2025) PRAPARE - Transportation Lack of Transportation (Medical): No Lack of Transportation (Non-Medical): No Physical Activity: Not on file Stress: Not on file Social Connections: Not on file Intimate Partner Violence: Not At Risk (04/23/2025) Humiliation, Afraid, Rape, and Kick questionnaire Fear of Current or Ex-Partner: No Emotionally Abused: No Physically Abused: No Sexually Abused: No Housing Stability: Low Risk (04/23/2025) Housing Stability Vital Sign Unable to Pay for Housing in the Last Year: No Number of Times Moved in the Last Year: 1 Homeless in the Last Year: No ROS: See HPI PHYSICAL EXAM: VITALS: BP 112/59 (BP Location: Right arm, Patient Position: Sitting) Pulse 75 Temp 36.7 C (98.1 F) (Temporal) Resp 19 Ht 5' (1.524 m) Wt 143 lb 1.3 oz (64.9 kg) SpO2 95% BMI 27.94 kg/m General: Alert, in no acute distress Respiratory: no respiratory distress, normal effort Abdomen: soft, non distended, non tender : no suprapubic tenderness. Ext cath in place draining turbid red-orange urine DATA: LABS: BMP: Lab Results Component Value Date GLUCOSE 91 04/24/2025 CALCIUM 8.7 (L) 04/24/2025 NA 141 04/24/2025 K 4.2 04/24/2025 CO2 28 04/24/2025 CL 108 (H) 04/24/2025 BUN 19 04/24/2025 CREATININE 0.51 (L) 04/24/2025 CBC: Lab Results Component Value Date WBC 11.3 (H) 04/24/2025 HGB 13.8 04/24/2025 HCT 44.6 04/24/2025 MCV 106.2 (H) 04/24/2025 PLT 157 04/24/2025 Urinalysis: No results found for: "UA" Urine Culture: No components found for: "UCX" RADIOLOGY: Reviewed. IMPRESSION & PLAN: 85 y.o. female with gross hematuria - Labs and imaging reviewed - trend daily labs - Cr @baseline - UA +for infxn - check urine culture (p) - No acute urologic surgical intervention at this time - IV Abx - start ancef - adjust per culture results - obtain PVR - Optimize pain/nausea control - Monitor fevers/hypotension - Remainder of care per primary team - Urology will sign off at this time - follow up outpatient prn - Please re-engage with any questions or concerns Alicia Arredondo DO Urology PGY-2 04/24/2025 5:05 PM Please page Senior Drafter Urology Resident with questions [1] Past Medical History: Diagnosis Date Arthritis Atrial fibrillation (HCC) Chronic obstructive pulmonary disease (HCC) 08/24/2017 Chronic pain Congestive heart failure (CHF) (HCC) GERD (gastroesophageal reflux disease) Hypertension Osteoarthritis Pain management Psoriasis [2] Past Surgical History: Procedure Laterality Date ABDOMINAL SURGERY bladder bowel all dropped APPENDECTOMY BACK SURGERY BLADDER SUSPENSION BRONCHOSCOPY (HISTORICAL) 06/28/2017 Bronch ENB CHOLECYSTECTOMY COLONOSCOPY FINGER SURGERY HERNIA REPAIR umbilical SHOULDER SURGERY Right SPINE SURGERY 1985 TOTAL ABDOMINAL HYSTERECTOMY UPPER GASTROINTESTINAL ENDOSCOPY [3] No Known Allergies [4] Current Facility-Administered Medications: acetaminophen (Tylenol) tablet 1,000 mg, 1,000 mg, Oral, q8h, LAVELLE Shaffer CNP, 1,000 mg at 04/24/25 05 atenolol (Tenormin) tablet 25 mg, 25 mg, Oral, Daily, LAVELLE Shaffer CNP, 25 mg at 7 baclofen (Lioresal) tablet 5 mg, 5 mg, Oral, Nightly, LAVELLE Jones CNP, 5 mg at [id number] buprenorphine (Butrans) 5 MCG/HR 5 mcg, 5 mcg, TransDERmal, Weekly, Nabeel Jose Alberto Vega APRN - MARJ, 5 mcg at 04/24/25 1040 cholecalciferol (Vitamin D-3) tablet 2,000 Units, 2,000 Units, Oral, Daily, Victorina Garsia APRN - MARJ, 2,000 Units at 04/24/25 0817 dextrose 5 % infusion, 100 mL/hr, IntraVENous, PRN, Victorina Garsia APRN - MARJ dextrose 50 % solution 12.5 g, 12.5 g, IntraVENous, PRN, Victorina Garsia APRN - MARJ famotidine (Pepcid) tablet 20 mg, 20 mg, Oral, Daily, Victorina Garsia APRN - AMRJ, 20 mg at 817 gabapentin (Neurontin) capsule 100 mg, 100 mg, Oral, q12h, Victorina Garsia APRN - MARJ, 100 mg at 04/24/25 0821 glucagon (human recombinant) injection 1 mg, 1 mg, IntraMUSCular, PRN, LAVELLE Shaffer CNP glucose oral gel 15 g, 15 g, Oral, PRN, Victorina Garsia APRN - MARJ HYDROmorphone (Dilaudid) injection 0.5 mg, 0.5 mg, IntraVENous, q4h PRN, Ninfa Colindres MD, 0.5 mg at 04/24/25 1703 Insulin Lispro (Humalog) injection 0-12 Units, 0-12 Units, SubCUTAneous, TID WC AND Insulin Lispro (Humalog) injection 0-12 Units, 0-12 Units, SubCUTAneous, Nightly, LAVELLE Shaffer CNP ipratropium-albuterol (Duo-Neb) 0.5-2.5 mg/3 mL nebulizer solution 3 mL, 3 mL, Nebulization, q2h PRN, Victorina Garsia APRN - RN HEMODIALYSIS, 3 mL at 04/24/25 0528 [START ON 04/25/2025] ipratropium-albuterol (Duo-Neb) 0.5-2.5 mg/3 mL nebulizer solution 3 mL, 3 mL, Nebulization, BID, Domonique Gonzalez MD melatonin tablet 3 mg, 3 mg, Oral, Nightly PRN, LAVELLE Jones CNP mometasone-formoterol (Dulera 100) 100-5 MCG/ACT inhaler 2 puff, 2 puff, Inhalation, BID, LAVELLE Shaffer CNP, 2 puff at 04/24/25 0822 naloxone (Narcan) injection 0.4 mg, 0.4 mg, IntraVENous, PRN, LAVELLE Shaffer CNP ondansetron ODT (Zofran-ODT) disintegrating tablet 4 mg, 4 mg, Oral, q8h PRN OR ondansetron (Zofran) injection 4 mg, 4 mg, IntraVENous, q6h PRN, LAVELLE Shaffer CNP, 4 mg at 04/23/25 0405 oxyCODONE (Roxicodone) immediate release tablet 10 mg, 10 mg, Oral, q4h PRN, Ninfa Colindres MD, 10 mg at 04/24/25 1703 oxyCODONE (Roxicodone) immediate release tablet 5 mg, 5 mg, Oral, q4h PRN, 5 mg at 04/24/25 1040 OR [DISCONTINUED] oxyCODONE (Roxicodone) immediate release tablet 10 mg, 10 mg, Oral, q4h PRN, Marsha Skinner MD, 10 mg at 04/23/25 0402 polyethylene glycol (PEG) 3350 (Miralax) packet 17 g, 17 g, Oral, Daily, LAVELLE Shaffer CNP, 17 g at 04/24/25 0816 sennosides (Senokot) tablet 17.2 mg, 2 tablet, Oral, BID, LAVELLE Shaffer CNP, 17.2 mg at 04/24/25 0817 sodium chloride 0.9% (NS) flush 30 mL, 30 mL, IntraVENous, q6h, LAVELLE Shaffer CNP, 30 mL at 04/24/25 0825 sodium chloride 0.9% (NS) flush 30 mL, 30 mL, IntraVENous, PRN, LAVELLE Shaffer CNP sodium chloride 0.9% (NS) flush 30 mL, 30 mL, IntraVENous, PRN, LAVELLE Shaffer CNP sodium chloride 3 % hypertonic nebulizer solution 4 mL, 4 mL, Nebulization, q12h, LAVELLE Shaffer CNP, 4 mL at 04/24/25 0817 tiotropium (Spiriva Respimat) 2.5 MCG/ACT inhaler 2 puff, 2 puff, Inhalation, Daily, LAVELLE Shaffer CNP, 2 puff at 04/24/25 0816 [5] Family History Adopted: Yes Problem Relation Name Age of Onset Chronic bronchitis Mother Emphysema Mother Cosigned by Hi Bear MD at 04/25/2025 3:16 PM EDT Associated attestation - Hi Bear MD - 04/25/2025 3:16 PM EDT I saw and evaluated the patient, participating in the romero portions of the service. I reviewed the resident s note. I agree with the resident s findings and plan. Hi Bear MD * LAVELLE Jones CNP - 04/23/2025 12:14 PM EDTAssociated Order(s): IP CONSULT TO GERIATRICS [facility] Geriatric Medicine Inpatient Consult Service Admission Date: 04/22/2025 Admission Status: INPATIENT Chief Complaint: fall Reason for Appointment Geriatrics consulted for Trauma due to fall Assessment & Plan Principal Problem: Acute subdural hematoma (HCC) Active Problems: Fall Closed fracture of multiple ribs of left side with routine healing Closed fracture of left wrist Hematoma Fall with SDH, rib fractures -Multiple risk factors including chronic pain, COPD, deconditioning, decreased hearing -Continue PT/OT as able while inpatient -Vitamin D previously WNL (January 2025) -Check orthostatic vital signs as able -Medications with associated fall risk include: Atenolol - monitor for bradycardia/hypotension Balcofen - takes at HS only, recommend decreasing to HS only here Furosemide - monitor for orthostasis/dehydration Percocet - long-standing med, dose likely reasonable No longer taking gabapentin, amitriptyline at home Acute pain due to trauma Chronic back pain --Recommend scheduled acetaminophen 1g TID with PRN oxycodone (5-10mg, not opioid naive) PRN for breakthrough Lab Results Component Value Date ALT 9 01/23/2025 AST 19 01/23/2025 ALKPHOS 107 01/23/2025 BILITOT 1.2 01/23/2025 -Optimize nonpharmacologic pain treatment modalities. -continue scheduled bowel regimen while on narcotics - recommend continuing on discharge -As above, baclofen only at HS at home, decreased to HS only here. -Butrans 5mcg at baseline, no longer has patch on. Will reorder. -Was no longer taking gabapentin at home, restarted here at 100mg TID, monitor tolerance and consider decreasing if ongoing complaints of dizziness. At risk for delirium --Risk factors: head trauma/head bleed, pain, advanced age, possible medication effect --Encourage PO intake, time up in chair, family visits, supervised ambulation, and sleep hygiene --If agitated, assess for and consider treating for pain --QTc= 467 --No antipsychotic unless patient is danger to self/others/treatment --Start PRN melatonin at HS --Monitor for constipation/urinary retention - last BM 04/21 --Possible medication contributions: narcotics Declining functional status --Related to acute injuries, chronic pain --Continue PT/OT as able while inpatient --Anticipate d/c to TBD - at risk for needing daily therapies at discharge. Subjective: HPI 85 y.o. year-old female presented from home for fall. Dx'd with multiple rib fractures, small subdural hematoma (stable to improved on repeat testing), L wrist fracture, R knee hematoma. Conversation with patient: # of falls in the past 3 months: 1 # of falls in the past year: 1 total History of falls: this is her only fall in the recent past. Had a fall 3.5 years ago where she broke her R arm. Got up to go from one bedroom to another bedroom to get some clothes "and I got woozy and I don't know what happened". Living situation: lives at home with son Assistive device: uses a walker, BSC due to urinary urgency Dizziness: long-standing, gets lightheaded when she stands up, has to sit on the edge of the bed awhile before she starts moving. Pain: acute pain in L wrist and ribs. Chronic back in back and hips Incontinence/urgency (bowel, bladder, nocturia): +urinary urgency at home. Chronic constipation Sleep (including use of medications/OTC for sleep): generally sleeps well Alcohol/drugs: denies any significant issues Mood: reports long-standing issues with depression Memory: reports mild difficulty with short-term memory Numbness: denies any significant issues Vision: sees well, glasses for close up Hearing: admits hearing has been getting worse DM: n/a Exercise/therapy: was active with home PT prior to fall/admission Weight/appetite: denies any significant issues Meds: takes directly from the bottles. Admits that she can't remember at times if she's already taken her medications or not so she'll skip them. Conversation with caregiver: granddaughter, Anna, at bedside. Corroborates patient's history. Advance Care Planning Healthcare Power of Carpet Or Rug Layer Helper: Yes, son Hardik and granddaughter Anna. Financial Power of Carpet Or Rug Layer Helper: No Living Will:No Code Status: Full Code Allergies[1] Current Medications[2] Medical History[3] Surgical History[4] Social History Tobacco Use Smoking status: Former Current packs/day: 0.00 Average packs/day: 1 pack/day for 17.0 years (17.0 ttl pk-yrs) Types: Cigarettes Start date: 05/29/1959 Quit date: 05/29/1976 Years since quittin.9 Smokeless tobacco: Never Substance Use Topics Alcohol use: No Social History Social History Narrative Not on file Family History Family History[5] Family Status Relation Name Status Mother No partnership data on file Parents are as above Review of Systems Constitutional: Negative for appetite change. HENT: Positive for hearing loss. Negative for trouble swallowing. Eyes: Negative for visual disturbance. Respiratory: Positive for shortness of breath (with exertion). Gastrointestinal: Positive for constipation. Genitourinary: Positive for urgency. Musculoskeletal: Positive for arthralgias, back pain and myalgias. Neurological: Positive for light-headedness. Psychiatric/Behavioral: Positive for confusion. Negative for sleep disturbance. Functional Status Prior to Admission: (I: Independent, A: Assisted, D: Dependent) ADLs I A D Notes Bathing [x] [] [] Dressing [x] [] [] Toileting [x] [] [] Transfers [x] [] [] Feeding [x] [] [] Ambulation [x] [] [] Assistive devices: bedside commode and walker IADLs I A D Telephone [x] [] [] Transportation [] [] [x] Shopping [] [x] [] Splits with son Meal prep [] [x] [] Splits with son Housework [] [x] [] Splits with son Medications [x] [] [] Finances [x] [] [] Objective: BP 130/80 (BP Location: Right arm, Patient Position: Lying) Pulse 70 Temp 36.9 C (98.4 F) (Temporal) Resp 15 SpO2 100% No intake or output data in the 24 hours ending 04/23/25 1214 Wt Readings from Last 3 Encounters: 01/23/25 140 lb (63.5 kg) 06/07/24 160 lb (72.6 kg) 10/27/22 180 lb (81.6 kg) Physical Exam Vitals reviewed. Constitutional: General: She is not in acute distress. Appearance: Normal appearance. HENT: Head: Comments: Ecchymosis to R side of face Ears: Comments: Hearing grossly intact to normal conversational volume. Mouth/Throat: Mouth: Mucous membranes are moist. Pharynx: Oropharynx is clear. Eyes: General: Right eye: No discharge. Left eye: No discharge. Extraocular Movements: Extraocular movements intact. Cardiovascular: Rate and Rhythm: Normal rate and regular rhythm. Heart sounds: No murmur heard. Pulmonary: Effort: Pulmonary effort is normal. No respiratory distress. Breath sounds: Normal breath sounds. Comments: Wearing O2 per NC Abdominal: General: Bowel sounds are normal. Palpations: Abdomen is soft. Musculoskeletal: General: Swelling (R knee) present. Right lower leg: No edema. Left lower leg: No edema. Skin: General: Skin is warm and dry. Comments: Abrasion to R knee Neurological: Mental Status: She is alert and oriented to person, place, and time. Cranial Nerves: No cranial nerve deficit. Sensory: No sensory deficit. Motor: Weakness (RLE) present. Coordination: Coordination normal. Psychiatric: Mood and Affect: Mood normal. Comments: Recent memory grossly intact in conversation, remote memory grossly intact Labs and Imaging: Recent Results (from the past 24 hours) Hemoglobin A1c Collection Time: 04/23/25 3:45 AM Result Value Ref Range HEMOGLOBIN A1C 5.2 <5.7 %HbA1C ESTIMATED AVERAGE GLUCOSE 103 mg/dL CBC auto differential Collection Time: 04/23/25 3:45 AM Result Value Ref Range Auto WBC 10.1 3.6 - 10.7 10*3/uL RBC 4.10 3.80 - 5.20 10*6/uL Hemoglobin 13.6 11.7 - 16.0 g/dL Hematocrit 42.4 35.0 - 47.0 % MCV 103.4 (H) 77.0 - 99.0 fL MCH 33.2 26.0 - 34.0 pg MCHC 32.1 30.5 - 36.0 % RDW 13.9 11.5 - 15.0 % Platelets 166 140 - 440 10*3/uL MPV 10.2 9.0 - 12.7 fL nRBC 0.0 0.0 - 2.0 /100 WBCs Neutrophils Relative 82.9 (H) 38.0 - 82.0 % Lymphocytes Relative 9.6 (L) 15.0 - 45.0 % Monocytes Relative 6.3 5.0 - 13.0 % Eosinophils Relative 0.1 0.0 - 6.0 % Basophils Relative 0.5 0.0 - 2.0 % Immature Grans % 0.6 0.0 - 2.0 % Neutrophils Absolute 8.3 (H) 1.8 - 7.5 10*3/uL Lymphocytes Absolute 1.0 1.0 - 4.3 10*3/uL Monocytes Absolute 0.6 0.0 - 0.9 10*3/uL Eosinophils Absolute 0.0 0.0 - 0.5 10*3/uL Basophils Absolute 0.1 0.0 - 0.2 10*3/uL Immature Grans Absolute 0.1 (H) <0.1 10*3/uL Basic metabolic panel Collection Time: 04/23/25 3:45 AM Result Value Ref Range SODIUM 137 136 - 145 mmol/L POTASSIUM 3.9 3.5 - 5.1 mmol/L CHLORIDE 107 98 - 107 mmol/L CARBON DIOXIDE 25 23 - 31 mmol/L UREA NITROGEN 16 9 - 23 mg/dL CREATININE 0.44 (L) 0.57 - 1.11 mg/dL GLUCOSE 101 82 - 115 mg/dL CALCIUM 8.5 (L) 8.8 - 10.0 mg/dL ANION GAP 5 3 - 13 mmol/L eGFR >90.0 >60.0 mL/min/1.73m*2 ECG 12 lead Collection Time: 04/23/25 7:46 AM Result Value Ref Range Heart Rate 68 bpm QRSD Interval 71 ms QT Interval 439 ms QTC Interval 467 ms P Strang 0 degrees QRS Strang 48 degrees T Wave Strang -60 degrees IA Interval 0 ms Lab Results Component Value Date TSH 1.35 01/23/2025 No components found for: "B12" No results found for: "VITD25" Reviewed: active problem list, medication list, social history, lab results, imaging Follow-up: 1-2 days NabeelLAVELLE Tidwell CNP 04/23/25 12:14 PM [1] No Known Allergies [2] Current Facility-Administered Medications: acetaminophen (Tylenol) tablet 1,000 mg, 1,000 mg, Oral, q8h, Marsha Skinner MD, 1,000 mg at 04/23/25 09 atenolol (Tenormin) tablet 25 mg, 25 mg, Oral, Daily, Marsha Skinner MD, 25 mg at 04/23/25 09 baclofen (Lioresal) tablet 5 mg, 5 mg, Oral, TID, Marsha Skinner MD, 5 mg at 04/23/25 09 cholecalciferol (Vitamin D-3) tablet 2,000 Units, 2,000 Units, Oral, Daily, LAVELLE Shaffer CNP, 2,000 Units at 04/23/25903 dextrose 5 % infusion, 100 mL/hr, IntraVENous, PRN, Marsha Skinner MD dextrose 50 % solution 12.5 g, 12.5 g, IntraVENous, PRN, Marsha Skinner MD famotidine (Pepcid) tablet 20 mg, 20 mg, Oral, Daily, LAVELLE Shaffer CNP, 20 mg at 908 gabapentin (Neurontin) capsule 100 mg, 100 mg, Oral, TID, Marsha Skinner MD, 100 mg at 04/23/25 0904 glucagon (human recombinant) injection 1 mg, 1 mg, IntraMUSCular, PRN, Marsha Skinner MD glucose oral gel 15 g, 15 g, Oral, PRN, Marsha Skinner MD HYDROmorphone (Dilaudid) injection 0.25 mg, 0.25 mg, IntraVENous, q4h PRN OR [DISCONTINUED] HYDROmorphone (Dilaudid) injection 0.5 mg, 0.5 mg, IntraVENous, q3h PRN, Marsha Skinner MD, 0.5 mg at 04/23/25 0222 Insulin Lispro (Humalog) injection 0-12 Units, 0-12 Units, SubCUTAneous, TID WC AND Insulin Lispro (Humalog) injection 0-12 Units, 0-12 Units, SubCUTAneous, Nightly, Marsha Skinner MD ipratropium-albuterol (Duo-Neb) 0.5-2.5 mg/3 mL nebulizer solution 3 mL, 3 mL, Nebulization, 4x daily, LAVELLE Shaffer CNP, 3 mL at 04/23/25 1153 ipratropium-albuterol (Duo-Neb) 0.5-2.5 mg/3 mL nebulizer solution 3 mL, 3 mL, Nebulization, q2h PRN, LAVELLE Shaffer CNP mometasone-formoterol (Dulera 100) 100-5 MCG/ACT inhaler 2 puff, 2 puff, Inhalation, BID, Marsha Skinner MD, 2 puff at 04/23/25 0907 mupirocin (Bactroban) 2 % ointment 1 Application, 1 Application, Nasal, BID, Marsha Skinner MD, 1 Application at 04/23/25 0905 naloxone (Narcan) injection 0.4 mg, 0.4 mg, IntraVENous, PRN, Marsha Skinner MD ondansetron ODT (Zofran-ODT) disintegrating tablet 4 mg, 4 mg, Oral, q8h PRN OR ondansetron (Zofran) injection 4 mg, 4 mg, IntraVENous, q6h PRN, Marsha Skinner MD, 4 mg at 04/23/25 0405 oxyCODONE (Roxicodone) immediate release tablet 5 mg, 5 mg, Oral, q4h PRN, 5 mg at 04/23/25 0915 OR [DISCONTINUED] oxyCODONE (Roxicodone) immediate release tablet 10 mg, 10 mg, Oral, q4h PRN, Marsha Skinner MD, 10 mg at 04/23/25 040 polyethylene glycol (PEG) 3350 (Miralax) packet 17 g, 17 g, Oral, Daily, Marsha Skinner MD, 17 g at 04/23/25 09 sennosides (Senokot) tablet 17.2 mg, 2 tablet, Oral, BID, LAVELLE Shaffer CNP, 17.2 mg at 04/23/25904 sodium chloride 0.9% (NS) flush 30 mL, 30 mL, IntraVENous, q6h, Marsha Skinner MD, 30 mL at sodium chloride 0.9% (NS) flush 30 mL, 30 mL, IntraVENous, PRN, Marsha Skinner MD sodium chloride 0.9% (NS) flush 30 mL, 30 mL, IntraVENous, PRN, Marsha Skinner MD sodium chloride 3 % hypertonic nebulizer solution 4 mL, 4 mL, Nebulization, q12h, LAVELLE Shaffer CNP tiotropium (Spiriva Respimat) 2.5 MCG/ACT inhaler 2 puff, 2 puff, Inhalation, Daily, LAVELLE Shaffer CNP, 2 puff at 04/23/25 0916 [3] Past Medical History: Diagnosis Date Arthritis [...] of Onset Chronic bronchitis Mother Emphysema Mother * Piero Kong, LAVELLE Abel CNP - 04/23/2025 9:06 AM EDTAssociated Order(s): IP CONSULT TO PALLIATIVE CARE Images from the original note were not included. Palliative Care Initial Consult Chief Complaint: Lesli Rosales is a 85 y.o. female with chief complaint of fall. Palliative Care is signing off, please re-consult if needed. (add SIGNOFFTRANSITION dotphrase below) Assessment/Plan Goals of care Lesli Rosales retains capacity for medical decision-making -legal surrogate decision maker is son, Hardik Roslaes ( ) -see subjective for details of conversation -goals of care include: 1) get better and go home, 2) continue current medical management Acute Traumatic Left Frontal and Anterior Hemispheric Subdural Hematoma Acute Traumatic Left 3 thru 7 Rib Fractures Non-displaced Fracture of the Left Scaphoid Wrist Right Knee Hematoma - patient fell the afternoon of 04/22 striking her right knee and left chest, no loss of consciousness. - CT head 04/23 reveals an acute mild subdural hemorrhage along the midline falx - Repeat CT pending - XR Hand reveals - Orthopedics consulted; no surgical intervention. Patient provided a sling and a brace for her LUE. - mgmt per primary Acute Pain - 2/2 above - Patient denies pain this morning. Rates as a 0/10 while at rest but notes pain with activity thatis controlled with current medications. - Agree with scheduled acetaminophen 1000 mg PO q8h - Agree with Oxycodone 5 mg PO q4h PRN - Agree with hydromorphoe 0.25 mg q4h PRN Chronic Pain - Patient follows with Pain Management in [place]; patient is attempting to reschedule her next appointment with them that was originally planned for tomorrow. - Patient reports no longer taking home amitriptyline - Uses home buprenorphine patch 5 mcg/hr weekly - Uses home baclofen 10 mg PO TID, - Uses home oxycodone-acetaminophen 5-325 mg 1 tablet PO q6h PRN Palliative Care Encounter -Code Status: Full Code - Palliative Care to sign off. Please re-consult with any acute Palliative Care needs. Discharge planning: Not ready for discharge due to ongoing medical work- up/critical illness Patient meets criteria for general inpatient hospice care: No Palliative Care IDT members involved: None Discussed the plan of care with the other interdisciplinary team (IDT) members of the Palliative Care and Hospice teams and Patient and Primary Attending. Subjective: Subjective/Events Lesli Rosales is a 85 y.o. female with past medical history of arthritis, atrial fibrillation, COPD, chronic pain, CHF, GERD, HTN, osteoarthritis, and psoriasis who presented to [facility] on 04/23/25 as a direct admit from [facility]. Patient was folding laundry during the afternoon of 04/22 when she fell striking her right knee and left chest, prompting her admission to [facility]. Patient is unsure of what caused her fall but does note being dizzy and having a headache throughout theday preceding her fall. Patient denies loss of consciousness. Patient is on Xarelto for her atrial fibrillation. Imaging at [facility] reveals a 6mm subdural hematoma. Patient was given PCC prior to being transferred to [facility] S[facility]. Neurosurgery has been consulted; no surgical indication. Palliative Carehas been consulted for goals of care. Upon assessment today, patient is resting comfortably in her hospital bed eating her breakfast. Patient is alert and oriented x 3. Patient's lung sounds are clear and even on 2 L nasal cannula. Patient is not in acute distress. Patient denies pain. Denies chest pain, lightheadedness, and/or dizziness. Patient endorses a good appetite. Denies nausea, vomiting, diarrhea, and/or constipation. Goals of Care: Introduced self and role of Palliative Care. Provided medical updates and answered all questions. Patient has clearly established goals. She is OK with CPR and/or mechanical ventilation in the event of a medical emergency such as cardiopulmonary arrest. Patient to remain a full code.Patient has HCPOA established, naming her son Hardik as her primary healthcare agent and her granddaughter Anna as her secondary agent. I requested a copy of this document. Patient's goal is to get better and return to home; patient lives with her son Hardik. Patient follows with Pain Management in [place]. Palliative Care will sign off. Pain Assessment No pain - patient rates current pain as a 0/10 at rest. Chronic and acute pain increases with activity but is well controlled with her current medications. Palliative Care Assessments: Goals of care: Continue Current Management, Cure, utilize all available medical therapies necessary, Live Longer, extend life as much as possible, and Improve or Maintain Function/Quality of Life Advanced Directives: Health Care Power of Carpet Or Rug Layer Helper - copy requested Functional Assessment: PPS 60% amb reduced; can't do normal housework/sig disease; occ assistance; normal or reduced intake; full LOC or confusion Prognosis: uncertain at this time Spiritual Assessment: No spiritual distress identified Bereavement and Grief: Grief Issues Not Identified PDMP/OARRS Reviewed: Dnb-Jffexiasx-adgtejhryoapo 5-325 mg tablet #84 on 03/27/25, buprenorphine 5 mcg/hr patch # 4 on 03/20/25 Social history: Marital status: Children: 2 adult child(alexandra) Living status: with family Work history: retired [employer] status: No Temple: [employer] ROS: See palliative care ROS/ESAS below; All other systems were reviewed and are negative. [place] Symptom Assessment Score [place] Score Pain Score (if non-verbal, add .FLACC below) 0 Tiredness Score 0 Nausea Score 0 Depression Score 0 Anxiety Score 0 Drowsiness Score 0 Anorexia Score (0= eating well, 10= not eating) 0 Wellbeing Score (10= worst sense of well-being) 0 Constipation 2 Dyspnea Score (0= no shortness of breath) 2 Family Meeting: Participants: none held Family meeting was held to discuss:N/A Medical History[1] Surgical History[2] Family History[3] Unable to obtain family history due to N/A- family history available Allergies[4] Objective: BP 108/58 Pulse 80 Temp 36.8 C (98.3 F) (Temporal) Resp 17 SpO2 99% Physical Exam Constitutional: General: She is not in acute distress. Appearance: Normal appearance. She is not ill-appearing. HENT: Head: Normocephalic and atraumatic. Right Ear: External ear normal. Left Ear: External ear normal. Mouth/Throat: Mouth: Mucous membranes are moist. Eyes: General: No scleral icterus. Right eye: No discharge. Left eye: No discharge. Pupils: Pupils are equal, round, and reactive to light. Cardiovascular: Rate and Rhythm: Normal rate. Rhythm irregular. Pulses: Normal pulses. Heart sounds: Normal heart sounds. Pulmonary: Effort: Pulmonary effort is normal. No respiratory distress. Breath sounds: Normal breath sounds. No stridor. No wheezing, rhonchi or rales. Abdominal: General: Abdomen is flat. Bowel sounds are normal. There is no distension. Palpations: Abdomen is soft. Tenderness: There is no abdominal tenderness. There is no guarding. Musculoskeletal: General: Signs of injury present. Right knee: Swelling, erythema and ecchymosis present. Tenderness present. Skin: General: Skin is warm and dry. Neurological: General: No focal deficit present. Mental Status: She is alert and oriented to person, place, and time. Mental status is at baseline. Psychiatric: Mood and Affect: Mood normal. Behavior: Behavior normal. Thought Content: Thought content normal. Judgment: Judgment normal. Medication information: 24-hour PRN meds received: oxycodone 5mg PO x 1, Oxycodone 10 mg x1, ondansetron 4mg IV x1, Results/Verification of Data Review Objective data reviewed (must include dates reviewed for labs, imaging reports and other specialty notes): Chart review, medication history, H&P 04/23, Neurosurgery Consult 04/23, Orthopedics Consult 04/23 Data in Support of Terminal Illness: Is patient hospice appropriate? No Transition Note Initiated: No, signing off. Lesli Rosales has been seen in consultation by [facility] during their admission to [facility]. They currently have no uncontrolled symptoms, are not interested in Palliative Care, and have established goals of care and we have signed off of their case. The patient has established follow-up with PCP and chronic pain management. Piero Kong, LAVELLE - MARJ [1] Past Medical History: Diagnosis Date Arthritis Atrial fibrillation (HCC) Chronic obstructive pulmonary disease (HCC) 08/24/2017 Chronic pain Congestive heart failure (CHF) (HCC) GERD (gastroesophageal reflux disease) Hypertension Osteoarthritis Pain management Psoriasis [2] Past Surgical History: Procedure Laterality Date ABDOMINAL SURGERY bladder bowel all dropped APPENDECTOMY BACK SURGERY BLADDER SUSPENSION BRONCHOSCOPY (HISTORICAL) 06/28/2017 Bronch ENB CHOLECYSTECTOMY COLONOSCOPY FINGER SURGERY HERNIA REPAIR 1959' umbilical SHOULDER SURGERY Right SPINE SURGERY 1984 TOTAL ABDOMINAL HYSTERECTOMY UPPER GASTROINTESTINAL ENDOSCOPY [3] Family History Adopted: Yes Problem Relation Name Age of Onset Chronic bronchitis Mother Emphysema Mother [4] No Known Allergies Cosigned by Shane Batres MD at 04/23/2025 11:34 AM EDT * Yasmeen Yanely Hudson, LAVELLE - RN HEMODIALYSIS - 04/23/2025 8:55 AM EDTAssociated Order(s): IP CONSULT TO NEUROSURGERY NEUROSURGERY and SPINE CONSULT NOTE Patient Name: Lesli Rosales Patient : 1940 PCP: Marty Guthrie MD Chief Complaint: fall on OAC History of Present Illness: 85 y.o. female with a PMHX as listed below arrives from OSH with SDH s/p fall on Xeralto . She remembers folding laundry in her living room then falling from standing height. CT head showed a right frontal SDH. She is neurologically intact. Complains of shoulder pain. Xeralto reversed with PCC. Past Medical History: Medical History[1] Past Surgical History: Surgical History[2] Home Medications: Prior to Admission medications Medication Sig Start Date End Date Taking? Authorizing Provider albuterol 108 (90 Base) MCG/ACT inhaler USE 2 INHALATIONS BY MOUTH 4 TIMES DAILY IF NEEDED 10/02/23 Yes Loan Madrigal PA-C atenolol (Tenormin) 25 MG tablet 05/25/22 Yes Historical Provider, baclofen (Lioresal) 10 MG tablet Take 5 mg by mouth 3 times daily. Yes Historical Provider, buprenorphine (Butrans) 5 MCG/HR Place 1 patch on the skin 1 (one) time per week. Yes Historical Provider, empagliflozin (Jardiance) 10 MG Take 10 mg by mouth daily. Yes Historical Provider, famotidine (Pepcid) 20 MG tablet Take 20 mg by mouth in the morning. 05/02/17 Yes Historical Provider, ipratropium (Atrovent) 0.02 % nebulizer solution Take 2.5 mL (0.5 mg) by nebulization every 6 hoursas needed for wheezing or shortness of breath. 08/05/22 Yes Loan Madrigal PA-C oxyCODONE-acetaminophen (Percocet) 5-325 MG tablet Take 1 tablet by mouth every 6 hours as needed for severe pain (7-10). Yes Historical Provider, rivaroxaban (Xarelto) 20 MG tablet Take 20 mg by mouth with evening meal. Take with food. Yes Historical Provider, budesonide-formoterol (Symbicort) 160-4.5 MCG/ACT inhaler Inhale 2 puffs in the morning and 2 puffsin the evening. Rinse mouth with water after use to reduce aftertaste and incidence of candidiasis.Do not swallow.. 08/05/22 01/23/25 Loan Madrigal PA-C budesonide-formoterol (Symbicort) 80-4.5 MCG/ACT inhaler Inhale 2 puffs 2 times daily. Patient not taking: Reported on 04/23/2025 Historical Provider, cholecalciferol (Vitamin D-3) 50 MCG (2000 UT) capsule Take 2,000 Units by mouth daily. Patient not taking: Reported on 04/23/2025 Historical Provider, insulin pen needle (Embrace Pen [place]) 31G X 8 MM misc Use as instructed Patient not taking: Reported on 04/23/2025 04/03/25 LAVELLE Andrews CNP levalbuterol (Xopenex) 0.63 MG/3ML nebulizer solution Take 1 ampule by nebulization as needed for wheezing or shortness of breath. 08/05/22 01/23/25 Loan Madrigal PA-C Risankizumab-rzaa (SKYRIZI SC) Inject under the skin. Historical Provider, teriparatide (Forteo) injection Inject 0.08 mL (20 mcg) under the skin daily. Patient not taking: Reported on 04/23/2025 04/03/25 LAVELLE Andrews CNP tiotropium (Spiriva) [address] 1 capsule (18 mcg) into inhaler and inhale in the morning. 08/05/22 01/23/25 Loan Madrigal PA-C Allergies: Patient has no known allergies. Social History: TOBACCO: reports that she quit smoking about 48 years ago. Her smoking use included cigarettes. Shestarted smoking about 65 years ago. She has a 17 pack- year smoking history. She has never used smokeless tobacco. ETOH: reports no history of alcohol use. RECREATIONAL DRUG USE: Social History Substance and Sexual Activity Drug Use No Family History: Family History[3] ROS: Shoulder pain Denies MCHUGH Physical Examination: Vitals: 04/23/25 0700 BP: 108/58 Pulse: 80 Resp: 17 Temp: SpO2: 99% Physical Exam Facial bruising NEURO: A&O x3 IGNACIO Left arm in brace No focal deficits noted Results Labs: Last 24hrs Recent Results (from the past 24 hours) Hemoglobin A1c Collection Time: 04/23/25 3:45 AM Result Value Ref Range HEMOGLOBIN A1C 5.2 <5.7 %HbA1C ESTIMATED AVERAGE GLUCOSE 103 mg/dL CBC auto differential Collection Time: 04/23/25 3:45 AM Result Value Ref Range Auto WBC 10.1 3.6 - 10.7 10*3/uL RBC 4.10 3.80 - 5.20 10*6/uL Hemoglobin 13.6 11.7 - 16.0 g/dL Hematocrit 42.4 35.0 - 47.0 % MCV 103.4 (H) 77.0 - 99.0 fL MCH 33.2 26.0 - 34.0 pg MCHC 32.1 30.5 - 36.0 % RDW 13.9 11.5 - 15.0 % Platelets 166 140 - 440 10*3/uL MPV 10.2 9.0 - 12.7 fL nRBC 0.0 0.0 - 2.0 /100 WBCs Neutrophils Relative 82.9 (H) 38.0 - 82.0 % Lymphocytes Relative 9.6 (L) 15.0 - 45.0 % Monocytes Relative 6.3 5.0 - 13.0 % Eosinophils Relative 0.1 0.0 - 6.0 % Basophils Relative 0.5 0.0 - 2.0 % Immature Grans % 0.6 0.0 - 2.0 % Neutrophils Absolute 8.3 (H) 1.8 - 7.5 10*3/uL Lymphocytes Absolute 1.0 1.0 - 4.3 10*3/uL Monocytes Absolute 0.6 0.0 - 0.9 10*3/uL Eosinophils Absolute 0.0 0.0 - 0.5 10*3/uL Basophils Absolute 0.1 0.0 - 0.2 10*3/uL Immature Grans Absolute 0.1 (H) <0.1 10*3/uL Basic metabolic panel Collection Time: 04/23/25 3:45 AM Result Value Ref Range SODIUM 137 136 - 145 mmol/L POTASSIUM 3.9 3.5 - 5.1 mmol/L CHLORIDE 107 98 - 107 mmol/L CARBON DIOXIDE 25 23 - 31 mmol/L UREA NITROGEN 16 9 - 23 mg/dL CREATININE 0.44 (L) 0.57 - 1.11 mg/dL GLUCOSE 101 82 - 115 mg/dL CALCIUM 8.5 (L) 8.8 - 10.0 mg/dL ANION GAP 5 3 - 13 mmol/L eGFR >90.0 >60.0 mL/min/1.73m*2 ECG 12 lead Collection Time: 04/23/25 7:46 AM Result Value Ref Range Heart Rate 68 bpm QRSD Interval 71 ms QT Interval 439 ms QTC Interval 467 ms P Strang 0 degrees QRS Strang 48 degrees T Wave Strang -60 degrees IA Interval 0 ms Radiology Personal review: Repeat CT head showed improvement in right frontal SDH. Interhemispheric SDH noted on first CT. ASSESSMENT / PLAN : 85 yo female s/p fall with SDH CT as above No neurosurgical intervention indicated Continue to hold OAC until OP follow up May start DVT ppx in 48 hrs No need for AED CT head in 1-2 weeks OP Will sign off-info in AVS I spent 50 min reviewing images, labs, examining pt, and discussing plan with pt and other providers regarding SDH. [1] Past Medical History: Diagnosis Date Arthritis Atrial fibrillation (HCC) Chronic obstructive pulmonary disease (HCC) 08/24/2017 Chronic pain Congestive heart failure (CHF) (HCC) GERD (gastroesophageal reflux disease) Hypertension Osteoarthritis Pain management Psoriasis [2] Past Surgical History: Procedure Laterality Date ABDOMINAL SURGERY bladder bowel all dropped APPENDECTOMY BACK SURGERY BLADDER SUSPENSION BRONCHOSCOPY (HISTORICAL) 06/28/2017 Bronch ENB CHOLECYSTECTOMY COLONOSCOPY FINGER SURGERY HERNIA REPAIR 1959's umbilical SHOULDER SURGERY Right SPINE SURGERY 1984 TOTAL ABDOMINAL HYSTERECTOMY UPPER GASTROINTESTINAL ENDOSCOPY [3] Family History Adopted: Yes Problem Relation Name Age of Onset Chronic bronchitis Mother Emphysema Mother Cosigned by Anuj Ramos MD at 04/23/2025 1:22 PM EDT * Lucas Mccauley MD - 04/23/2025 2:30 AM EDTAssociated Order(s): IP CONSULT TO ORTHOPAEDIC SURGERY Images from the original note were not included. Ortho Consult Patient: Lesli Rosales Date of : 1940 Acct: [id number] PCP: Marty Guthrie MD Date of Admission: 04/22/2025 Date of Service: Pt seen/examined on 04/24/2025 Chief Complaint: Left shoulder pain, mechanical fall History Of Present Illness: This is a 85 y.o. female presenting with left shoulder pain after a fall from standing earlier today. She is unsure of the mechanism for the fall but believes it was likely mechanical. She initially presented to the [place] ED where initial workup was significant for a subdural hematoma, a left scaphoid fracture, and left 3rd-7th rib fractures. She was placed into a left removable thumb spica brace and was transferred to [facility] for further management. Of note, she does take Xarelto and states her right knee developed significant swelling following the fall but is not painful. On evaluation, she is endorsing left shoulder pain that she only experiences when she movesthe left upper extremity. She denies pain at rest. She denies pain in the left hand. She denies numbness/tingling in the extremities. Prior remote orthopaedic surgery history of back surgery, a right proximal humerus ORIF, and a right thumb surgery done at an outside hospital. She denies tobacco, alcohol, or illicit drug use. Household ambulator at baseline. Patient ambulation status: walker at home, wheelchair for further distances Antiplatelets/Anticoagulation includes: Xarelto Hx from chart and/or Pt. Past Medical History: Medical History[1] Past Surgical History: Surgical History[2] Home Medications: Prior to Admission medications Medication Sig Start Date End Date Taking? Authorizing Provider albuterol 108 (90 Base) MCG/ACT inhaler USE 2 INHALATIONS BY MOUTH 4 TIMES DAILY IF NEEDED 10/02/23 Yes Loan Madrigal PA-C atenolol (Tenormin) 25 MG tablet 05/25/22 Yes Historical Provider, baclofen (Lioresal) 10 MG tablet Take 5 mg by mouth 3 times daily. Yes Historical Provider, buprenorphine (Butrans) 5 MCG/HR Place 1 patch on the skin 1 (one) time per week. Yes Historical Provider, empagliflozin (Jardiance) 10 MG Take 10 mg by mouth daily. Yes Historical Provider, famotidine (Pepcid) 20 MG tablet Take 20 mg by mouth in the morning. 05/02/17 Yes Historical Provider, ipratropium (Atrovent) 0.02 % nebulizer solution Take 2.5 mL (0.5 mg) by nebulization every 6 hoursas needed for wheezing or shortness of breath. 08/05/22 Yes Loan Madrigal PA-C oxyCODONE-acetaminophen (Percocet) 5-325 MG tablet Take 1 tablet by mouth every 6 hours as needed for severe pain (7-10). Yes Historical Provider, rivaroxaban (Xarelto) 20 MG tablet Take 20 mg by mouth with evening meal. Take with food. Yes Historical Provider, budesonide-formoterol (Symbicort) 160-4.5 MCG/ACT inhaler Inhale 2 puffs in the morning and 2 puffsin the evening. Rinse mouth with water after use to reduce aftertaste and incidence of candidiasis.Do not swallow.. 08/05/22 01/23/25 Loan Madrigal PA-C budesonide-formoterol (Symbicort) 80-4.5 MCG/ACT inhaler Inhale 2 puffs 2 times daily. Patient not taking: Reported on 04/23/2025 Historical Provider, cholecalciferol (Vitamin D-3) 50 MCG (1999 UT) capsule Take 2,000 Units by mouth daily. Patient not taking: Reported on 04/23/2025 Historical Provider, insulin pen needle (Embrace Pen [place]) 31G X 8 MM misc Use as instructed Patient not taking: Reported on 04/23/2025 04/03/25 Felecia Mercado, SHUTTLE DRIVER - RN HEMODIALYSIS levalbuterol (Xopenex) 0.63 MG/3ML nebulizer solution Take 1 ampule by nebulization as needed for wheezing or shortness of breath. 08/05/22 01/23/25 Loan Madrigal PA-C Risankizumab-rzaa (SKYRIZI SC) Inject under the skin. Historical Provider, teriparatide (Forteo) injection Inject 0.08 mL (20 mcg) under the skin daily. Patient not taking: Reported on 04/23/2025 04/03/25 Felecia Mercado APRN - MARJ tiotropium (Spiriva) [address] 1 capsule (18 mcg) into inhaler and inhale in the morning. 08/05/22 01/23/25 Loan Madrigal PA-C Current Hospital Medications: Current Medications[3] Allergies: Patient has no known allergies. Social History: Social History Socioeconomic History Marital status: Spouse name: Not on file Number of children: Not on file Years of education: Not on file Highest education level: Not on file Occupational History Not on file Tobacco Use Smoking status: Former Current packs/day: 0.00 Average packs/day: 1 pack/day for 17.0 years (17.0 ttl pk-yrs) Types: Cigarettes Start date: 05/29/1959 Quit date: 05/29/1976 Years since quittin.9 Smokeless tobacco: Never Vaping Use Vaping status: Never Used Substance and Sexual Activity Alcohol use: No Drug use: No Sexual activity: Not on file Other Topics Concern Not on file Social History Narrative Not on file Social Drivers of Health Financial Resource Strain: Not on file Food Insecurity: Not on file Transportation Needs: No Transportation Needs (04/23/2025) PRAPARE - Transportation Lack of Transportation (Medical): No Lack of Transportation (Non-Medical): No Physical Activity: Not on file Stress: Not on file Social Connections: Not on file Intimate Partner Violence: Not At Risk (04/23/2025) Humiliation, Afraid, Rape, and Kick questionnaire Fear of Current or Ex-Partner: No Emotionally Abused: No Physically Abused: No Sexually Abused: No Housing Stability: Low Risk (04/23/2025) Housing Stability Vital Sign Unable to Pay for Housing in the Last Year: No Number of Times Moved in the Last Year: 1 Homeless in the Last Year: No Family History: Family History[4] Further Family History is noncontributory to this injury. REVIEW OF SYSTEMS: Review of Systems - General ROS: negative for - chills, fatigue, fever, malaise or night sweats Psychological ROS: negative Ophthalmic ROS: negative ENT ROS: negative for - headaches or sore throat Hematological and Lymphatic ROS: negative for - bleeding problems or blood clots Respiratory ROS: no cough, shortness of breath, or wheezing Cardiovascular ROS: no chest pain or dyspnea on exertion Gastrointestinal ROS: negative Musculoskeletal ROS: See HPI Neurological ROS: negative for - bowel and bladder control changes, gait disturbance or numbness/tingling All other systems reviewed and are negative PHYSICAL EXAM: BP 102/54 (BP Location: Right arm, Patient Position: Sitting) Pulse 78 Temp 36.8 C (98.2 F) (Temporal) Resp 18 Ht 1.524 m (5') Wt 64.9 kg (143 lb 1.3 oz) SpO2 98% BMI 27.94 kg/m GENERAL APPEARANCE: Awake and oriented x3. No acute distress. MOOD AND AFFECT: Calm appropriate to situation GAIT AND STATION: Patient is in bed and unable to ambulate secondary to rib pain. COORDINATION and BALANCE: Patient is grossly coordinated. Right Upper Extremity: -No obvious pain or deformity to inspection with normal joint range of motion, stability, and muscle strength except noted below -No TTP over clavicle, shoulder, humerus, elbow, forearm, wrist, hand, or fingers -Radial pulse palpable -SILT in radial/median/ulnar nerve distributions -Motor +AIN/PIN/ulnar nerve functions -Skin intact except where noted below -Painless pROM at shoulder/elbow/wrist There is a well healed surgical incision in the deltopectoral interval. There is significant ecchymoses throughout the right upper extremity. Left Upper Extremity: -No obvious pain or deformity to inspection with normal joint range of motion, stability, and muscle strength except noted below -No TTP over clavicle, shoulder, humerus, elbow, forearm, wrist, hand, or fingers -Radial pulse palpable -SILT in radial/median/ulnar nerve distributions -Motor +AIN/PIN/ulnar nerve functions -Skin intact except where noted below -Painless pROM at elbow/wrist There is no tenderness to palpation over any bony prominence throughout the left upper extremity. There is no tenderness to palpation of the anatomic snuffbox. There is an ecchymosis over the thumb extending into the dorsal aspect of the hand. Patient has pain she states radiates posteriorly through her shoulder with movement of her shoulder. She also has left rib pain with movement of her left shoulder. Right Lower Extremity: -No obvious pain or deformity to inspection with normal joint range of motion, stability, and muscle strength except noted below -No TTP over pelvis, hip, thigh, tibia, lateral mal, medial mal, calc, midfoot, forefoot -Pulse: DP Palpable -SILT in the superficial peroneal, deep peroneal, tibial, sural, saphenous nerve distributions -Motor function of quad, tibialis anterior, extensor hallucis longus, and gactrocsoleus complex intact -Skin intact except where noted below -Painless pROM at hip/knee/ankle There is a large hematoma over the anterior aspect of the knee. This is only tender to palpation over a superficial abrasion on the area of swelling. There is no pain with knee joint range of motion or tenderness along the joint line. Left Lower Extremity: -No obvious pain or deformity to inspection with normal joint range of motion, stability, and muscle strength except noted below -No TTP over pelvis, hip, thigh, knee, lateral mal, medial mal, calc, midfoot, forefoot -TTP: tibia -Pulse: DP Palpable, PT Palpable -SILT in the superficial peroneal, deep peroneal, tibial, sural, saphenous nerve distributions -Motor function of quad, tibialis anterior, extensor hallucis longus, and gactrocsoleus complex intact -Skin intact except where noted below -Painless pROM at hip/knee/ankle There is tenderness over the anterior tibia to palpation, patient states this is chronic and unchanged from baseline. Labs: CBC: Lab Results Component Value Date WBC 11.3 (H) 04/24/2025 RBC 4.20 04/24/2025 BMP: Lab Results Component Value Date GLUCOSE 91 04/24/2025 CO2 28 04/24/2025 BUN 19 04/24/2025 CREATININE 0.51 (L) 04/24/2025 CALCIUM 8.7 (L) 04/24/2025 PT/INR: No results found for: "PT", "INR", "APTT" Type and Screen: No results found for: "RH", "LABANTI" CRP: No results found for: "CRP" ESR: No results found for: "SEDRATE" HgBA1c: No components found for: "LABA1C" The above labs were reviewed by me. Radiology: The below images were independently reviewed and interpreted with pertinent findings noted below. XR: Left hand with scaphoid view: There are degenerative changes noted throughout the hand. There are no acute fractures or dislocations. Right knee (PACS): There are degenerative changes of the knee. There is soft tissue swelling anterior to the knee. No acute fractures or dislocations. Left shoulder: There are degenerative changes present within the shoulder and acromioclavicular joints. There are no acute fractures or dislocations. CT: Cervical spine: There are degenerative changes throughout the cervical spine. There is maintenance of cervical lordosis. Facet joints are congruent. Spinal canal is patent. Transverse foramen are patent. No acute fractures or dislocations. Radiology reports reviewed. ASSESSMENT: 85 y.o. female with left shoulder osteoarthritis and a right knee hematoma PLAN: -Patient is nontender in the left anatomic snuffbox and there is no evidence of acute fracture of the left scaphoid on scaphoid view. She has tenderness with motion of her shoulder. It is unclear if this is referred from her rib fractures or if this is an exacerbation of left shoulder osteoarthritis causing pain with motion. Regardless, there are no fractures of the proximal left humerus where the patient is experiencing pain. -No acute intervention for left shoulder pain. Recommend pain management through the primary service. -Patient given left upper extremity sling and left removable thumb spica brace for comfort -There is a sizable right knee hematoma following a fall on Xarelto. There are no associated fractures on right knee x-ray. Patient is nontender on the bony prominences of the right knee. -No acute intervention for a right knee hematoma without fracture. Recommend compressive dressing for comfort and to aid in hematoma resolution. -Weightbearing as tolerated -Activity as tolerated -Ice & elevate -Neurovascular checks -Skin checks -Follow-up outpatient - Pain and medical management per trauma -Orthopaedic surgery will sign off. Please page office 365 consultant orthopaedic resident for questions or concerns. Ezequiel Dent M.D. PGY-2 Orthopaedic Surgery Attestation: The patient was seen, examined and all relevant radiographs were reviewed and independently interpreted which show no acute fractures and only degenerative changes as above. I agree withwhat is documented above with any changes noted. The plan of care was discussed with the evaluatingresident. Electronically signed by Lucas Mccauley M.D. 04/24/2025 at 12:15 PM. [1] Past Medical History: Diagnosis Date Arthritis Atrial fibrillation (HCC) Chronic obstructive pulmonary disease (HCC) 08/24/2017 Chronic pain Congestive heart failure (CHF) (HCC) GERD (gastroesophageal reflux disease) Hypertension Osteoarthritis Pain management Psoriasis [2] Past Surgical History: Procedure Laterality Date ABDOMINAL SURGERY bladder bowel all dropped APPENDECTOMY BACK SURGERY BLADDER SUSPENSION BRONCHOSCOPY (HISTORICAL) 06/28/2017 Bronch ENB CHOLECYSTECTOMY COLONOSCOPY FINGER SURGERY HERNIA REPAIR 1959' umbilical SHOULDER SURGERY Right SPINE SURGERY 1984 TOTAL ABDOMINAL HYSTERECTOMY UPPER GASTROINTESTINAL ENDOSCOPY [3] Current Facility-Administered Medications: acetaminophen (Tylenol) tablet 1,000 mg, 1,000 mg, Oral, q8h, LAVELLE Shaffer CNP, 1,000 mg at 04/24/25 0517 atenolol (Tenormin) tablet 25 mg, 25 mg, Oral, Daily, Victorina Garsia APRN - MARJ, 25 mg at baclofen (Lioresal) tablet 5 mg, 5 mg, Oral, Nightly, LAVELLE Jones CNP, 5 mg at buprenorphine (Butrans) 5 MCG/HR 5 mcg, 5 mcg, TransDERmal, Weekly, LAVELLE Jones CNP, 5 mcg at 04/24/25 1040 cholecalciferol (Vitamin D-3) tablet 2,000 Units, 2,000 Units, Oral, Daily, Victorina Garsia APRN - MARJ, 2,000 Units at 04/24/25 0817 dextrose 5 % infusion, 100 mL/hr, IntraVENous, PRN, LAVELLE Shaffer CNP dextrose 50 % solution 12.5 g, 12.5 g, IntraVENous, PRN, LAVELLE Shaffer CNP famotidine (Pepcid) tablet 20 mg, 20 mg, Oral, Daily, Victorina Garsia APRN - MARJ, 20 mg at gabapentin (Neurontin) capsule 100 mg, 100 mg, Oral, q12h, LAVELLE Shaffer CNP, 100 mg at 04/24/25 0821 glucagon (human recombinant) injection 1 mg, 1 mg, IntraMUSCular, PRN, LAVELLE Shaffer CNP glucose oral gel 15 g, 15 g, Oral, PRN, LAVELLE Shaffer CNP HYDROmorphone (Dilaudid) injection 0.5 mg, 0.5 mg, IntraVENous, q4h PRN, Ninfa Colindres MD, 0.5 mg at 04/24/25 1140 Insulin Lispro (Humalog) injection 0-12 Units, 0-12 Units, SubCUTAneous, TID WC AND Insulin Lispro (Humalog) injection 0-12 Units, 0-12 Units, SubCUTAneous, Nightly, LAVELLE Shaffer CNP ipratropium-albuterol (Duo-Neb) 0.5-2.5 mg/3 mL nebulizer solution 3 mL, 3 mL, Nebulization, 4x daily, LAVELLE Shaffer CNP, 3 mL at 04/24/25 1145 ipratropium-albuterol (Duo-Neb) 0.5-2.5 mg/3 mL nebulizer solution 3 mL, 3 mL, Nebulization, q2h PRN, Victorina Garsia APRN - MARJ, 3 mL at 04/24/25 0528 melatonin tablet 3 mg, 3 mg, Oral, Nightly PRN, LAVELLE Jones CNP mometasone-formoterol (Dulera 100) 100-5 MCG/ACT inhaler 2 puff, 2 puff, Inhalation, BID, LAVELLE Shaffer CNP, 2 puff at 04/24/25 0822 naloxone (Narcan) injection 0.4 mg, 0.4 mg, IntraVENous, PRN, LAVELLE Shaffer CNP ondansetron ODT (Zofran-ODT) disintegrating tablet 4 mg, 4 mg, Oral, q8h PRN OR ondansetron (Zofran) injection 4 mg, 4 mg, IntraVENous, q6h PRN, LAVELLE Shaffer CNP, 4 mg at 04/23/25 0405 oxyCODONE (Roxicodone) immediate release tablet 10 mg, 10 mg, Oral, q4h PRN, Ninfa Colindres MD oxyCODONE (Roxicodone) immediate release tablet 5 mg, 5 mg, Oral, q4h PRN, 5 mg at 04/24/25 1040 OR [DISCONTINUED] oxyCODONE (Roxicodone) immediate release tablet 10 mg, 10 mg, Oral, q4h PRN, Marsha Skinner MD, 10 mg at 04/23/25 0402 polyethylene glycol (PEG) 3350 (Miralax) packet 17 g, 17 g, Oral, Daily, Victorina Garsia APRN - MARJ, 17 g at 04/24/25 0816 sennosides (Senokot) tablet 17.2 mg, 2 tablet, Oral, BID, Victorina Garsia APRN - RN HEMODIALYSIS, 17.2 mg at 04/24/25 0817 sodium chloride 0.9% (NS) flush 30 mL, 30 mL, IntraVENous, q6h, Victorina Garsia APRN - RN HEMODIALYSIS, 30 mL at 04/24/25 0825 sodium chloride 0.9% (NS) flush 30 mL, 30 mL, IntraVENous, PRN, Victorina Garsia APRN - RN HEMODIALYSIS sodium chloride 0.9% (NS) flush 30 mL, 30 mL, IntraVENous, PRN, Victorina Garsia APRN - RN HEMODIALYSIS sodium chloride 3 % hypertonic nebulizer solution 4 mL, 4 mL, Nebulization, q12h, Victorina Garsia APRN - MARJ, 4 mL at 04/24/25 0817 tiotropium (Spiriva Respimat) 2.5 MCG/ACT inhaler 2 puff, 2 puff, Inhalation, Daily, Victorina Garsia APRN - MARJ, 2 puff at 04/24/25 0816 [4] Family History Adopted: Yes Problem Relation Name Age of Onset Chronic bronchitis Mother Emphysema Mother documented in [facility]09-04-2025 [facility] Respiratory Care Department Progress Note As part of the Respiratory Assessment Program (RAP), the following Respiratory Therapist evaluation has been completed, including a chart review and clinical/physical assessment. Respiratory Therapist RAP Evaluation Guideline Points 0 1 2 3 4 Points Strongly Consider History Factor No Pulmonary conditions Stable Pulmonary condition(s) Surgery or Intervention that may impact Pulmonary system (at risk) Surgery or Intervention that is impacting Pulmonary system Active Exacerbation of Pulmonary Condition 1 Respiratory Pattern Regular, RR= 12-18 GOODWIN or Increased RR= 19-24 Irregular, or RR= 25-30 SOB, talk in short sentences, or RR= 31-35 Severe SOB, accessory muscle use, one word answers, or RR>35 0 Aerosol Med(s), High Flow O2 Breath Sounds Clear Diminished in 1 lobe Diminished in <= 2 lobes Adventitious breath sounds Coarse crackles, Wheezes, or Diminished in >2 lobes 2 Aerosol Med(s), Bronchial Hygiene, Hyperinflation Cough & Sputum Strong cough, no secretion retention or production Weak cough, no secretion retention or production Weak cough, w/ production (less often than Q2hr), or secretion retention No cough, w/ secretion retention or production (less often than Q2hr) Significant secretion production (more often than Q2hr) or mucus plug 0 Aerosol Med(s), Bronchial Hygiene, Hyperinflation Level of Activity Ambulatory Ambulatory with Assist Up in chair or edge of bed (dangle) Non-ambulatory, bedridden with active ROM Completely paralyzed or without active ROM 0 Triage 5 0-2 Triage 4 3-5 Triage 3 6-10 Triage 2 11-14 Triage 1 >=15 Total 3 Triage Score = 4 TRIAGE SCORING - SUGGESTED FREQUENCIES Aerosol Therapy Bronchial Hygiene Hyperinflation Triage Score Q4h & PRN 1 Q4hWA (QID) & PRN 2 TID & PRN 3 BID & PRN 4 PRN 5 RT to enter/modify frequency of treatment order in EMR/EHR to match this RAP evaluation. Based on this RAP evaluation the following therapy is being initiated: Duoneb At the following frequency: BID and PRN Comments: Thank you for involving Respiratory in the care of this patient, [facility]09-04-2025 NoteCare Management Progress Note Short Medical why still here: Pt on 3W s/p fall SDH L 3-7 rib fxs. L wrist fx, R knee hta. Planned Discharge Disposition: Inpatient Rehab Facility ([facility]) Pt agreeable to IPR, discussed LOS and therapy requirements. Barriers/Today we still Wait: Administering IV medications, Facility pre-cert, Clinical stability (pain control) Length of Stay (Days): 2 GMLOS: No GMLOS Documented [facility]09-04-2025 Progress note* Care Coordination - Rebekah Escalona RN - 04/24/2025 10:54 AM EDT Care Management Progress Note Short Medical why still here: Pt on 3W s/p fall SDH L 3-7 rib fxs. L wrist fx, R knee hta. Planned Discharge Disposition: Inpatient Rehab Facility ([facility]) Pt agreeable to IPR, discussed LOS and therapy requirements. Barriers/Today we still Wait: Administering IV medications, Facility pre-cert, Clinical stability (pain control) Length of Stay (Days): 2 GMLOS: No GMLOS [facility]ed [id number] NoteOCCUPATIONAL THERAPY [facility] Initial Evaluation Name/MRN: Lesli Rosales ([id number]) Evaluation Date: 04/24/2025 Date of : 1940 Admission Date: 04/22/2025 11:45 PM Age: 85 y.o. Room/Bed: W3-325/W3-325 A Discharge Recommendation: IP Rehab Assessment IMPRESSION: Pt presented after a fall resulting in a SDH, L rib fx 3-7, injured L UE but no fx. Pt reports being previously IND with ADLs and ambulation. Pt currently requires min assist for bed mobility, mod assist for standing, min assist for transfer and total assist for ADLs. OT recommending IPR. Admitting Diagnosis: see above Performance Deficits /Impairments: Increased Pain, Decreased Functional Mobility, Decreased ADL status, Decreased Strength, Decreased Safety Awareness, Decreased Endurance, Decreased Balance, Decreased ROM, and Decreased High Level IADLs Prognosis: Fair Decision Making: Low Complexity Subjective Pt supine in bed, agreeable to OT eval. Pain: Pizano-Soliz Pain Ratin = Hurts whole lot Pain Location: L ribs/shoulder Past Medical History: Medical History[1] Past Surgical History: Surgical History[2] Admission Diagnosis: Patient Active Problem List Diagnosis Date Noted Acute subdural hematoma (HCC) 04/23/2025 Fall 04/23/2025 Closed fracture of multiple ribs of left side with routine healing 04/23/2025 Closed fracture of left wrist 04/23/2025 Hematoma 04/23/2025 Chronic obstructive pulmonary disease (HCC) 08/24/2017 Lung nodule 06/28/2017 Pulmonary fibrosis (HCC) 06/01/2017 CONCEPCION (obstructive sleep apnea) 06/01/2017 Psoriatic arthritis ([facility]) 06/01/2017 Medical Precautions: No active isolations Proper PPE donned/doffed in accordance with facility standards. Fall Risk: Curry Fall Risk Score: 85 (Low Risk) Curry Fall Risk Score: 85 (High Risk) Precautions/Restrictions: Braces or Orthoses: L wrist brace, L sling for comfort Left UE Weight Bearing: Weight Bearing As Tolerated Lines/Drains/Airways: purewick, tele, O2 Fall Precautions Family/Caregiver Present: none Overall Cognitive Status: WFL Overall Orientation Status: Oriented x4 Social/Functional History Patient admitted from home. Lives With: Son Type of Home: single family home Home Layout: Single Level Home Home Access: Stairs to Enter with Rails (# of stairs: 4) and Ramped Entrance Bathroom Shower/Tub: Tub/Shower Combo and Shower Chair with Back Toilet: Standard and Grab Bars Home Equipment: front wheeled walker Homemaking Responsibilities: Independent Receives Help From: Family Active Scrap Metal Burner: N/A Prior Level of Function Prior Level of ADL Function: Independent Prior Level of Mobility: Independent; Device: Front wheeled walker Prior Level of Transfers: Independent Objective ADLs LE Dressing: Dependent, total assist to don B socks while sitting EOB, reports she does not don them at home d/t difficulty Upper Extremity Assessment AROM: Impaired: R UE limited d/t broken shoulder from previous fall about 4 years ago, L only able to flex shoulder ~ 15 degrees d/t pain PROM: Not assessed this session Strength: Exceptions: R fair+ executive admin strength Bed Mobility Supine to sit: Min Assist, assist to elevate trunk, HOB elevated, able to manage B LE Transfers/Mobility Sit to stand: Mod Assist Stand to sit: Min Assist Stand step: Min Assist Mod assist to elevate from EOB d/t retro lean but once stand required less assist, min assist for balance during steps over tp recliner, min assist for controled decent. Device(s) used: hand held assist Sensation: Normal Sensation AM-PAC AM-PAC Inpatient Daily Activity Raw Score: 13 ADL Inpatient CMS G-Code Modifier: CL Plan Pt would benefit from skilled acute OT services to address Strengthening, ROM, Gait Training, Balance Training, Self-Care/ADL Training, Functional Mobility Training, Endurance Training, Safety Education and Training, Pain Management, Home Management Training, and Patient/Caregiver Training. Frequency: 4x/weekfor 4 weeks Barriers: Pain, Impaired balance, Lower extremity weakness, Limited safety awareness, Decreased endurance, Upper extremity weakness, New weightbearing/ROM restrictions, and Stairs at home Safety/Education Safety Safety Devices in place: All fall risk precautions in place, call light within reach, left in chair, nurse notified, and no alarms engaged upon entry Restraints: No Education Education Given To: patient Education Provided: OT Role, Plan of Care, and Discharge Recommendations Education Method: Verbal Barriers to Learning: Education Outcome: Goals Patient Stated Goal: rehab Encounter Problems Encounter Problems (Active) Balance Patient will maintain static standing balance for 3 minutes with CGA in order to demonstrate decreased risk of falling. Start: 04/24/25 Expected End: 05/22/25 Dressing Upper Extremities Patient will complete upper body dressing with min assist Start (more content not included)...[facility] [id number] Note PHYSICAL THERAPY [facility] Initial Evaluation Name/MRN: Lesli Rosales ([id number]) Evaluation Date: 04/23/2025 Date of : 1940 Admission Date: 04/22/2025 11:45 PM Age: 85 y.o. Room/Bed: T2-/T2 A Discharge Recommendation: IP Rehab Equipment Needed: No (Pt uses walker to ambulate) Assessment IMPRESSION: Pt presents after a fall at home and sustained several injuries including a subdural hematoma, fx of ribs 3-7 on the L side, and fx of the L scaphoid. Pt was able to transition from supine to EOB with mod assist with complaints of pain in her L chest area (where her fx ribs are) and shoulders. Pt required repeated cueing to maintain her seated posture and she displayed impaired sitting balance due to pain. Pt the stood up, performed several exercises, and was transferred over to the recliner. Pt was then instructed on how to use an incentive spirometer and given instructions for frequency of use during the day. Pt is currently at high risk for falls and her pain is currently her most limiting factor. Current discharge recommendation of IPR as pt could appropriately tolerate 3 hours of therapy per day. Admitting Diagnosis: Acute subdural hematoma, L 3-7 rib fx, non-displaced scaphoid fx of the wrist, R knee hematoma Prognosis: good Performance Deficits /Impairments: Increased Pain, Decreased Functional Mobility, Decreased ADL status, Decreased Strength, Decreased Endurance, Decreased Balance, Decreased ROM, and Decreased Posture Decision Making: Low Complexity Subjective Pt found in bed with granddaughter at bedside. Pt agreed to working with PT and was oriented x4. Pt states that her pain is limiting her most currently and that she feels like it has gotten notably more difficult to breathe. When asked about using assistive devices at home, pt stated the used a rolling walker to ambulate at home and in the community. Pain: 0-10 pain scale: 8/10 Location: L ribs 3-7 Past Medical History: Medical History[1] Past Surgical History: Surgical History[2] Admission Diagnosis: Patient Active Problem List Diagnosis Date Noted Acute subdural hematoma (HCC) 04/23/2025 Fall 04/23/2025 Closed fracture of multiple ribs of left side with routine healing 04/23/2025 Closed fracture of left wrist 04/23/2025 Hematoma 04/23/2025 Chronic obstructive pulmonary disease (HCC) 08/24/2017 Lung nodule 06/28/2017 Pulmonary fibrosis (HCC) 06/01/2017 CONCEPCION (obstructive sleep apnea) 06/01/2017 Psoriatic arthritis (HCC) 06/01/2017 Medical Precautions: No active isolations Proper PPE donned/doffed in accordance with facility standards. Fall Risk: Curry Fall Risk Score: 75 (Low Risk) Curry Fall Risk Score: 75 (High Risk) Precautions/Restrictions: Left UE Weight Bearing: Non-Weight Bearing Lines/Drains/Airways: peripheral IV, tele, SpO2, BP cuff Family/Caregiver Present: granddaughter Overall Cognitive Status: WNL Overall Orientation Status: Oriented x4 Vision: Not Assessed, wears glasses for reading and and are being used during the eval Hearing: normal Social/Functional History Patient admitted from home. Lives With: Son Type of Home: single family home Home Layout: Single Level Home Home Access: Stairs to Enter with Rails (# of stairs: 4) and Ramped Entrance Bathroom Shower/Tub: Tub/Shower Combo and Shower Chair with Back Toilet: Standard and Grab Bars Home Equipment: front wheeled walker Homemaking Responsibilities: Independent Receives Help From: Family Active Scrap Metal Burner: N/A Prior Level of Function Prior Level of ADL Function: Required Assist Prior Level of Mobility: Independent; Device: Front wheeled walker Prior Level of Transfers: Independent Objective Lower Extremity Assessment AROM: Impaired: limited by pain PROM: Impaired: limited by pain Strength: Exceptions: limited by pain; even with LE movements Sensation: WFL Balance: Balance During Session: Posture: fair Sitting - Static: SBA Sitting - Dynamic: Contact Guard Standing - Static: Min Assist Standing - Dynamic: Min Assist Bed Mobility: Supine to sit: Min Assist Rolling to right: Min Assist Scooting: Contact Guard Transfers Sit to stand: Min Assist Stand to sit: Min Assist Bed to chair: Min Assist Ambulation Ambulation 1 Assistive device(s) used: Front wheeled walker Assist level: Min Assist Distance (ft): 3 to chair Quality of gait: step to pattern, shuffling, uneven step length, wide GALLO, slow carla, postural sway Balance During Session: Posture: fair Sitting - Static: SBA Sitting - Dynamic: Contact Guard Standing - Static: Min Assist Standing - Dynamic: Min Assist Exercises Comments: While seated, worked on sitting balance and correcting the pt's posture to midline for several minutes to maintain safety. Repeated tactile and verbal cues were used in posture training. Once standng, pt performed weight shifting and marching 10 time each le (more content not included)...[facility] [id number] Progress note* Care Coordination - Rebekah Escalona RN - 04/23/2025 12:21 PM EDT Care Managment Initial Assessment Date: 04/23/2025 Patient Name: Lesli Rosales : 1940 Patient Information Source of Information: Patient Cognition/Language: WFL - Within Functional Limits Permission given to speak with patient payable representative/caregiver as indicated: Yes Confirmation of Payer with patient/family: Yes Payer Name: [facility] medicare : No Confirmation of Primary Care Physician: Confirmed PCP Name: Marty Guthrie MD Seen in last 2 years?: Yes Primary Caregiver: Self If assistance needed, confirmed caregiver ready, willing and able to care for patient at discharge:Yes Confirmed with: Lesli Living Arrangements Current Residence: Private Residence Number of Floors 1 Number of Entry Steps: 4 Bed/Bath Levels: Both first floor Facility: Facility Name: Plan to Return: Lives with: Children Support Systems: Children, Family members Activities of Daily Living Ambulation: Assistance (walker) Bathing/Dressing: Independent Elimination/Continence/Toileting: Independent Feeding: Independent Who Assists with Activities of Daily Living: Lesli Instrumental Activities of Daily Living Prescription Coverage: Yes Pharmacy Used: [facility] Medication Management: Independent Transportation/Shopping: Independent Transportation Mode: Car (pt doesn't drive) Needs Assistance with Transportation at Discharge: No Meal Preparation: Independent Laundry/Cleaning: Independent Finances/Bill Paying: Independent Communication: Independent Types of Care Services/Equipment Utilized Care Services: Dialysis Type: Durable Medical Equipment: Walker, Oxygen (Continuous or prn) Oxygen Flow Rate: 2L DME Provider: pt unsure Patient's Goal/Discharge Plan Patient expects to be discharged to: home Discharge Planning Actions: Continue to follow Patient's Choice Rights and [employer] and Collaborative Relationships Disclosed as Indicated for Post-Acute Care: Interdisciplinary Team Engagement: PT/OT, Palliative Care, Geriatric Assessment Social Work Referral for: Additional Information: Pt admitted s/p fall SDH L 3-7 rib fxs. L wrist fx, R knee hta. Introduced myself and role. Pt lives with son and has a good support system. PT/OT is pending. Plan for rib block today. [id number] Consult note* Nabeel Vega APRN - MARJ - 04/23/2025 12:14 PM EDTAssociated Order(s): IP CONSULT TO GERIATRICS [facility] Geriatric Medicine Inpatient Consult Service Admission Date: 04/22/2025 Admission Status: INPATIENT Chief Complaint: fall Reason for Appointment Geriatrics consulted for Trauma due to fall Assessment & Plan Principal Problem: Acute subdural hematoma (HCC) Active Problems: Fall Closed fracture of multiple ribs of left side with routine healing Closed fracture of left wrist Hematoma Fall with SDH, rib fractures -Multiple risk factors including chronic pain, COPD, deconditioning, decreased hearing -Continue PT/OT as able while inpatient -Vitamin D previously WNL (January 2025) -Check orthostatic vital signs as able -Medications with associated fall risk include: Atenolol - monitor for bradycardia/hypotension Balcofen - takes at HS only, recommend decreasing to HS only here Furosemide - monitor for orthostasis/dehydration Percocet - long-standing med, dose likely reasonable No longer taking gabapentin, amitriptyline at home Acute pain due to trauma Chronic back pain --Recommend scheduled acetaminophen 1g TID with PRN oxycodone (5-10mg, not opioid naive) PRN for breakthrough Lab Results Component Value Date ALT 9 01/23/2025 AST 19 01/23/2025 ALKPHOS 107 01/23/2025 BILITOT 1.2 01/23/2025 -Optimize nonpharmacologic pain treatment modalities. -continue scheduled bowel regimen while on narcotics - recommend continuing on discharge -As above, baclofen only at HS at home, decreased to HS only here. -Butrans 5mcg at baseline, no longer has patch on. Will reorder. -Was no longer taking gabapentin at home, restarted here at 100mg TID, monitor tolerance and consider decreasing if ongoing complaints of dizziness. At risk for delirium --Risk factors: head trauma/head bleed, pain, advanced age, possible medication effect --Encourage PO intake, time up in chair, family visits, supervised ambulation, and sleep hygiene --If agitated, assess for and consider treating for pain --QTc= 467 --No antipsychotic unless patient is danger to self/others/treatment --Start PRN melatonin at HS --Monitor for constipation/urinary retention - last BM 04/21 --Possible medication contributions: narcotics Declining functional status --Related to acute injuries, chronic pain --Continue PT/OT as able while inpatient --Anticipate d/c to TBD - at risk for needing daily therapies at discharge. Subjective: HPI 85 y.o. year-old female presented from home for fall. Dx'd with multiple rib fractures, small subdural hematoma (stable to improved on repeat testing), L wrist fracture, R knee hematoma. Conversation with patient: # of falls in the past 3 months: 1 # of falls in the past year: 1 total History of falls: this is her only fall in the recent past. Had a fall 3.5 years ago where she broke her R arm. Got up to go from one bedroom to another bedroom to get some clothes "and I got woozy and I don't know what happened". Living situation: lives at home with son Assistive device: uses a walker, BSC due to urinary urgency Dizziness: long-standing, gets lightheaded when she stands up, has to sit on the edge of the bed awhile before she starts moving. Pain: acute pain in L wrist and ribs. Chronic back in back and hips Incontinence/urgency (bowel, bladder, nocturia): +urinary urgency at home. Chronic constipation Sleep (including use of medications/OTC for sleep): generally sleeps well Alcohol/drugs: denies any significant issues Mood: reports long-standing issues with depression Memory: reports mild difficulty with short-term memory Numbness: denies any significant issues Vision: sees well, glasses for close up Hearing: admits hearing has been getting worse DM: n/a Exercise/therapy: was active with home PT prior to fall/admission Weight/appetite: denies any significant issues Meds: takes directly from the bottles. Admits that she can't remember at times if she's already taken her medications or not so she'll skip them. Conversation with caregiver: granddaughter, Anna, at bedside. Corroborates patient's history. Advance Care Planning Healthcare Power of Carpet Or Rug Layer Helper: Yes, son Hardik and granddaughter Anna. Financial Power of Carpet Or Rug Layer Helper: No Living Will:No Code Status: Full Code Allergies[1] Current Medications[2] Medical History[3] Surgical History[4] Social History Tobacco Use Smoking status: Former Current packs/day: 0.00 Average packs/day: 1 pack/day for 17.0 years (17.0 ttl pk-yrs) Types: Cigarettes Start date: 05/29/1959 Quit date: 05/29/1976 Years since quittin.9 Smokeless tobacco: Never Substance Use Topics Alcohol use: No Social History Social History Narrative Not on file Family History Family History[5] Family Status Relation Name Status Mother No partnership data on file Parents are as above Review of Systems Constitutional: Negative for appetite change. HENT: Positive for hearing loss. Negative for trouble swallowing. Eyes: Negative for visual disturbance. Respiratory: Positive for shortness of breath (with exertion). Gastrointestinal: Positive for constipation. Genitourinary: Positive for urgency. Musculoskeletal: Positive for arthralgias, back pain and myalgias. Neurological: Positive for light-headedness. Psychiatric/Behavioral: Positive for confusion. Negative for sleep disturbance. Functional Status Prior to Admission: (I: Independent, A: Assisted, D: Dependent) ADLs I A D Notes Bathing [x] [] [] Dressing [x] [] [] Toileting [x] [] [] Transfers [x] [] [] Feeding [x] [] [] Ambulation [x] [] [] Assistive devices: bedside commode and walker IADLs I A D Telephone [x] [] [] Transportation [] [] [x] Shopping [] [x] [] Splits with son Meal prep [] [x] [] Splits with son Housework [] [x] [] Splits with son Medications [x] [] [] Finances [x] [] [] Objective: BP 130/80 (BP Location: Right arm, Patient Position: Lying) Pulse 70 Temp 36.9 C (98.4 F) (Temporal) Resp 15 SpO2 100% No intake or output data in the 24 hours ending 04/23/25 1214 Wt Readings from Last 3 Encounters: 01/23/25 140 lb (63.5 kg) 06/07/24 160 lb (72.6 kg) 10/27/22 180 lb (81.6 kg) Physical Exam Vitals reviewed. Constitutional: General: She is not in acute distress. Appearance: Normal appearance. HENT: Head: Comments: Ecchymosis to R side of face Ears: Comments: Hearing grossly intact to normal conversational volume. Mouth/Throat: Mouth: Mucous membranes are moist. Pharynx: Oropharynx is clear. Eyes: General: Right eye: No discharge. Left eye: No discharge. Extraocular Movements: Extraocular movements intact. Cardiovascular: Rate and Rhythm: Normal rate and regular rhythm. Heart sounds: No murmur heard. Pulmonary: Effort: Pulmonary effort is normal. No respiratory distress. Breath sounds: Normal breath sounds. Comments: Wearing O2 per NC Abdominal: General: Bowel sounds are normal. Palpations: Abdomen is soft. Musculoskeletal: General: Swelling (R knee) present. Right lower leg: No edema. Left lower leg: No edema. Skin: General: Skin is warm and dry. Comments: Abrasion to R knee Neurological: Mental Status: She is alert and oriented to person, place, and time. Cranial Nerves: No cranial nerve deficit. Sensory: No sensory deficit. Motor: Weakness (RLE) present. Coordination: Coordination normal. Psychiatric: Mood and Affect: Mood normal. Comments: Recent memory grossly intact in conversation, remote memory grossly intact Labs and Imaging: Recent Results (from the past 24 hours) Hemoglobin A1c Collection Time: 04/23/25 3:45 AM Result Value Ref Range HEMOGLOBIN A1C 5.2 <5.7 %HbA1C ESTIMATED AVERAGE GLUCOSE 103 mg/dL CBC auto differential Collection Time: 04/23/25 3:45 AM Result Value Ref Range Auto WBC 10.1 3.6 - 10.7 10*3/uL RBC 4.10 3.80 - 5.20 10*6/uL Hemoglobin 13.6 11.7 - 16.0 g/dL Hematocrit 42.4 35.0 - 47.0 % MCV 103.4 (H) 77.0 - 99.0 fL MCH 33.2 26.0 - 34.0 pg MCHC 32.1 30.5 - 36.0 % RDW 13.9 11.5 - 15.0 % Platelets 166 140 - 440 10*3/uL MPV 10.2 9.0 - 12.7 fL nRBC 0.0 0.0 - 2.0 /100 WBCs Neutrophils Relative 82.9 (H) 38.0 - 82.0 % Lymphocytes Relative 9.6 (L) 15.0 - 45.0 % Monocytes Relative 6.3 5.0 - 13.0 % Eosinophils Relative 0.1 0.0 - 6.0 % Basophils Relative 0.5 0.0 - 2.0 % Immature Grans % 0.6 0.0 - 2.0 % Neutrophils Absolute 8.3 (H) 1.8 - 7.5 10*3/uL Lymphocytes Absolute 1.0 1.0 - 4.3 10*3/uL Monocytes Absolute 0.6 0.0 - 0.9 10*3/uL Eosinophils Absolute 0.0 0.0 - 0.5 10*3/uL Basophils Absolute 0.1 0.0 - 0.2 10*3/uL Immature Grans Absolute 0.1 (H) <0.1 10*3/uL Basic metabolic panel Collection Time: 04/23/25 3:45 AM Result Value Ref Range SODIUM 137 136 - 145 mmol/L POTASSIUM 3.9 3.5 - 5.1 mmol/L CHLORIDE 107 98 - 107 mmol/L CARBON DIOXIDE 25 23 - 31 mmol/L UREA NITROGEN 16 9 - 23 mg/dL CREATININE 0.44 (L) 0.57 - 1.11 mg/dL GLUCOSE 101 82 - 115 mg/dL CALCIUM 8.5 (L) 8.8 - 10.0 mg/dL ANION GAP 5 3 - 13 mmol/L eGFR >90.0 >60.0 mL/min/1.73m*2 ECG 12 lead Collection Time: 04/23/25 7:46 AM Result Value Ref Range Heart Rate 68 bpm QRSD Interval 71 ms QT Interval 439 ms QTC Interval 467 ms P Strang 0 degrees QRS Strang 48 degrees T Wave Strang -60 degrees IA Interval 0 ms Lab Results Component Value Date TSH 1.35 01/23/2025 No components found for: "B12" No results found for: "VITD25" Reviewed: active problem list, medication list, social history, lab results, imaging Follow-up: 1-2 days NabeelLAVELLE Tidwell CNP 04/23/25 12:14 PM [1] No Known Allergies [2] Current Facility-Administered Medications: acetaminophen (Tylenol) tablet 1,000 mg, 1,000 mg, Oral, q8h, Marsha Skinner MD, 1,000 mg at 04/23/25914 atenolol (Tenormin) tablet 25 mg, 25 mg, Oral, Daily, Marsha Skinner MD, 25 mg at 04/23/25903 baclofen (Lioresal) tablet 5 mg, 5 mg, Oral, TID, Marsha Skinner MD, 5 mg at 04/23/25903 cholecalciferol (Vitamin D-3) tablet 2,000 Units, 2,000 Units, Oral, Daily, LAVELLE Shaffer CNP, 2,000 Units at 04/23/25903 dextrose 5 % infusion, 100 mL/hr, IntraVENous, PRN, Marsha Skinner MD dextrose 50 % solution 12.5 g, 12.5 g, IntraVENous, PRN, Marsha Skinner MD famotidine (Pepcid) tablet 20 mg, 20 mg, Oral, Daily, LAVELLE Shaffer CNP, 20 mg at gabapentin (Neurontin) capsule 100 mg, 100 mg, Oral, TID, Marsha Skinner MD, 100 mg at 04/23/25903 glucagon (human recombinant) injection 1 mg, 1 mg, IntraMUSCular, PRN, Marsha Skinner MD glucose oral gel 15 g, 15 g, Oral, PRN, Marsha Skinner MD HYDROmorphone (Dilaudid) injection 0.25 mg, 0.25 mg, IntraVENous, q4h PRN OR [DISCONTINUED] HYDROmorphone (Dilaudid) injection 0.5 mg, 0.5 mg, IntraVENous, q3h PRN, Marsha Skinner MD, 0.5 mg at 04/23/25 022 Insulin Lispro (Humalog) injection 0-12 Units, 0-12 Units, SubCUTAneous, TID WC AND Insulin Lispro (Humalog) injection 0-12 Units, 0-12 Units, SubCUTAneous, Nightly, Marsha Skinner MD ipratropium-albuterol (Duo-Neb) 0.5-2.5 mg/3 mL nebulizer solution 3 mL, 3 mL, Nebulization, 4x daily, LAVELLE Shaffer CNP, 3 mL at 04/23/25 1153 ipratropium-albuterol (Duo-Neb) 0.5-2.5 mg/3 mL nebulizer solution 3 mL, 3 mL, Nebulization, q2h PRN, LAVELLE Shaffer CNP mometasone-formoterol (Dulera 100) 100-5 MCG/ACT inhaler 2 puff, 2 puff, Inhalation, BID, Marsha Skinner MD, 2 puff at 04/23/25 09 mupirocin (Bactroban) 2 % ointment 1 Application, 1 Application, Nasal, BID, Marsha Skinner MD, 1 Application at 04/23/25904 naloxone (Narcan) injection 0.4 mg, 0.4 mg, IntraVENous, PRN, Marsha Skinner MD ondansetron ODT (Zofran-ODT) disintegrating tablet 4 mg, 4 mg, Oral, q8h PRN OR ondansetron (Zofran) injection 4 mg, 4 mg, IntraVENous, q6h PRN, Marsha Skinner MD, 4 mg at 04/23/25 0405 oxyCODONE (Roxicodone) immediate release tablet 5 mg, 5 mg, Oral, q4h PRN, 5 mg at 04/23/25 0915 OR [DISCONTINUED] oxyCODONE (Roxicodone) immediate release tablet 10 mg, 10 mg, Oral, q4h PRN, Marsha Skinner MD, 10 mg at 04/23/25 040 polyethylene glycol (PEG) 3350 (Miralax) packet 17 g, 17 g, Oral, Daily, Marsha Skinner MD, 17 g at 04/23/25904 sennosides (Senokot) tablet 17.2 mg, 2 tablet, Oral, BID, LAVELLE Shaffer CNP, 17.2 mg at 04/23/25904 sodium chloride 0.9% (NS) flush 30 mL, 30 mL, IntraVENous, q6h, Marsha Skinner MD, 30 mL at 909 sodium chloride 0.9% (NS) flush 30 mL, 30 mL, IntraVENous, PRN, Marsha Skinner MD sodium chloride 0.9% (NS) flush 30 mL, 30 mL, IntraVENous, PRN, Marsha Skinner MD sodium chloride 3 % hypertonic nebulizer solution 4 mL, 4 mL, Nebulization, q12h, LAVELLE Shaffer CNP tiotropium (Spiriva Respimat) 2.5 MCG/ACT inhaler 2 puff, 2 puff, Inhalation, Daily, LAVELLE Shaffer CNP, 2 puff at 04/23/25 0916 [3] Past Medical History: Diagnosis Date Arthritis [...] of Onset Chronic bronchitis Mother Emphysema Mother [id number] Patient's home Note* Home Care - Gianni Suarez RN - 04/23/2025 9:19 AM EDT Patient is currently active with [facility]. The patients current certification period will on 05/02/25. The patient is currently receiving SN/PT/OT/GEAR REPAIR SUPERVISOR services through the agency. Cut Out Stitcher to continue to follow. [employer] [id number] Consult note* LAVELLE Cedeño CNP - 04/23/2025 9:06 AM EDTAssociated Order(s): IP CONSULT TO PALLIATIVE CARE Images from the original note were not included. Palliative Care Initial Consult Chief Complaint: Lesli Rosales is a 85 y.o. female with chief complaint of fall. Palliative Care is signing off, please re-consult if needed. (add SIGNOFFTRANSITION dotphrase below) Assessment/Plan Goals of care Lesli Rosales retains capacity for medical decision-making -legal surrogate decision maker is son, Hardik Rosales ( ) -see subjective for details of conversation -goals of care include: 1) get better and go home, 2) continue current medical management Acute Traumatic Left Frontal and Anterior Hemispheric Subdural Hematoma Acute Traumatic Left 3 thru 7 Rib Fractures Non-displaced Fracture of the Left Scaphoid Wrist Right Knee Hematoma - patient fell the afternoon of 04/22 striking her right knee and left chest, no loss of consciousness. - CT head 04/23 reveals an acute mild subdural hemorrhage along the midline falx - Repeat CT pending - XR Hand reveals - Orthopedics consulted; no surgical intervention. Patient provided a sling and a brace for her LUE. - mgmt per primary Acute Pain - 2/2 above - Patient denies pain this morning. Rates as a 0/10 while at rest but notes pain with activity thatis controlled with current medications. - Agree with scheduled acetaminophen 1000 mg PO q8h - Agree with Oxycodone 5 mg PO q4h PRN - Agree with hydromorphoe 0.25 mg q4h PRN Chronic Pain - Patient follows with Pain Management in [place]; patient is attempting to reschedule her next appointment with them that was originally planned for tomorrow. - Patient reports no longer taking home amitriptyline - Uses home buprenorphine patch 5 mcg/hr weekly - Uses home baclofen 10 mg PO TID, - Uses home oxycodone-acetaminophen 5-325 mg 1 tablet PO q6h PRN Palliative Care Encounter -Code Status: Full Code - Palliative Care to sign off. Please re-consult with any acute Palliative Care needs. Discharge planning: Not ready for discharge due to ongoing medical work- up/critical illness Patient meets criteria for general inpatient hospice care: No Palliative Care IDT members involved: None Discussed the plan of care with the other interdisciplinary team (IDT) members of the Palliative Care and Hospice teams and Patient and Primary Attending. Subjective: Subjective/Events Lesli Rosales is a 85 y.o. female with past medical history of arthritis, atrial fibrillation, COPD, chronic pain, CHF, GERD, HTN, osteoarthritis, and psoriasis who presented to [facility] on 04/23/25 as a direct admit from [place] ED. Patient was folding laundry during the afternoon of 04/22 when she fell striking her right knee and left chest, prompting her admission to [place]. Patient is unsure of what caused her fall but does note being dizzy and having a headache throughout theday preceding her fall. Patient denies loss of consciousness. Patient is on Xarelto for her atrial fibrillation. Imaging at [place] reveals a 6mm subdural hematoma. Patient was given PCC prior to being transferred to [facility]. Neurosurgery has been consulted; no surgical indication. Palliative Carehas been consulted for goals of care. Upon assessment today, patient is resting comfortably in her hospital bed eating her breakfast. Patient is alert and oriented x 3. Patient's lung sounds are clear and even on 2 L nasal cannula. Patient is not in acute distress. Patient denies pain. Denies chest pain, lightheadedness, and/or dizziness. Patient endorses a good appetite. Denies nausea, vomiting, diarrhea, and/or constipation. Goals of Care: Introduced self and role of Palliative Care. Provided medical updates and answered all questions. Patient has clearly established goals. She is OK with CPR and/or mechanical ventilation in the event of a medical emergency such as cardiopulmonary arrest. Patient to remain a full code.Patient has HCPOA established, naming her son Hardik as her primary healthcare agent and her granddaughter Anna as her secondary agent. I requested a copy of this document. Patient's goal is to get better and return to home; patient lives with her son Hardik. Patient follows with Pain Management in [place]. Palliative Care will sign off. Pain Assessment No pain - patient rates current pain as a 0/10 at rest. Chronic and acute pain increases with activity but is well controlled with her current medications. Palliative Care Assessments: Goals of care: Continue Current Management, Cure, utilize all available medical therapies necessary, Live Longer, extend life as much as possible, and Improve or Maintain Function/Quality of Life Advanced Directives: Health Care Power of Carpet Or Rug Layer Helper - copy requested Functional Assessment: PPS 60% amb reduced; can't do normal housework/sig disease; occ assistance; normal or reduced intake; full LOC or confusion Prognosis: uncertain at this time Spiritual Assessment: No spiritual distress identified Bereavement and Grief: Grief Issues Not Identified PDMP/OARRS Reviewed: Qkf-Cxcoelxhc-wikuphynlnbgd 5-325 mg tablet #84 on 03/27/25, buprenorphine 5 mcg/hr patch # 4 on 03/20/25 Social history: Marital status: Children: 2 adult child(alexandra) Living status: with family Work history: retired [employer] [place] status: No Temple: [employer] ROS: See palliative care ROS/ESAS below; All other systems were reviewed and are negative. [place] Symptom Assessment Score [place] Score Pain Score (if non-verbal, add .FLACC below) 0 Tiredness Score 0 Nausea Score 0 Depression Score 0 Anxiety Score 0 Drowsiness Score 0 Anorexia Score (0= eating well, 10= not eating) 0 Wellbeing Score (10= worst sense of well-being) 0 Constipation 2 Dyspnea Score (0= no shortness of breath) 2 Family Meeting: Participants: none held Family meeting was held to discuss:N/A Medical History[1] Surgical History[2] Family History[3] Unable to obtain family history due to N/A- family history available Allergies[4] Objective: BP 108/58 Pulse 80 Temp 36.8 C (98.3 F) (Temporal) Resp 17 SpO2 99% Physical Exam Constitutional: General: She is not in acute distress. Appearance: Normal appearance. She is not ill-appearing. HENT: Head: Normocephalic and atraumatic. Right Ear: External ear normal. Left Ear: External ear normal. Mouth/Throat: Mouth: Mucous membranes are moist. Eyes: General: No scleral icterus. Right eye: No discharge. Left eye: No discharge. Pupils: Pupils are equal, round, and reactive to light. Cardiovascular: Rate and Rhythm: Normal rate. Rhythm irregular. Pulses: Normal pulses. Heart sounds: Normal heart sounds. Pulmonary: Effort: Pulmonary effort is normal. No respiratory distress. Breath sounds: Normal breath sounds. No stridor. No wheezing, rhonchi or rales. Abdominal: General: Abdomen is flat. Bowel sounds are normal. There is no distension. Palpations: Abdomen is soft. Tenderness: There is no abdominal tenderness. There is no guarding. Musculoskeletal: General: Signs of injury present. Right knee: Swelling, erythema and ecchymosis present. Tenderness present. Skin: General: Skin is warm and dry. Neurological: General: No focal deficit present. Mental Status: She is alert and oriented to person, place, and time. Mental status is at baseline. Psychiatric: Mood and Affect: Mood normal. Behavior: Behavior normal. Thought Content: Thought content normal. Judgment: Judgment normal. Medication information: 24-hour PRN meds received: oxycodone 5mg PO x 1, Oxycodone 10 mg x1, ondansetron 4mg IV x1, Results/Verification of Data Review Objective data reviewed (must include dates reviewed for labs, imaging reports and other specialty notes): Chart review, medication history, H&P 04/23, Neurosurgery Consult 04/23, Orthopedics Consult 04/23 Data in Support of Terminal Illness: Is patient hospice appropriate? No Transition Note Initiated: No, signing off. Lesli Rosales has been seen in consultation by [facility] during their admission to [facility]. They currently have no uncontrolled symptoms, are not interested in Palliative Care, and have established goals of care and we have signed off of their case. The patient has established follow-up with PCP and chronic pain management. LAVELLE Cedeño CNP [1] Past Medical History: Diagnosis Date Arthritis Atrial fibrillation (HCC) Chronic obstructive pulmonary disease (HCC) 08/24/2017 Chronic pain Congestive heart failure (CHF) (HCC) GERD (gastroesophageal reflux disease) Hypertension Osteoarthritis Pain management Psoriasis [2] Past Surgical History: Procedure Laterality Date ABDOMINAL SURGERY bladder bowel all dropped APPENDECTOMY BACK SURGERY BLADDER SUSPENSION BRONCHOSCOPY (HISTORICAL) 06/28/2017 Bronch ENB CHOLECYSTECTOMY COLONOSCOPY FINGER SURGERY HERNIA REPAIR umbilical SHOULDER SURGERY Right SPINE SURGERY 1984 TOTAL ABDOMINAL HYSTERECTOMY UPPER GASTROINTESTINAL ENDOSCOPY [3] Family History Adopted: Yes Problem Relation Name Age of Onset Chronic bronchitis Mother Emphysema Mother [4] No Known Allergies Cosigned by Shane Batres MD at 04/23/2025 11:34 AM EDT [facility] [employer] Work Phone: [phone] Consult note* LAVELLE Torres CNP - 04/23/2025 8:55 AM EDTAssociated Order(s): IP CONSULT TO NEUROSURGERY NEUROSURGERY and SPINE CONSULT NOTE Patient Name: Lesli Rosales Patient : 1940 PCP: Marty Guthrie MD Chief Complaint: fall on OAC History of Present Illness: 85 y.o. female with a PMHX as listed below arrives from OSH with SDH s/p fall on Xeralto . She remembers folding laundry in her living room then falling from standing height. CT head showed a right frontal SDH. She is neurologically intact. Complains of shoulder pain. Xeralto reversed with PCC. Past Medical History: Medical History[1] Past Surgical History: Surgical History[2] Home Medications: Prior to Admission medications Medication Sig Start Date End Date Taking? Authorizing Provider albuterol 108 (90 Base) MCG/ACT inhaler USE 2 INHALATIONS BY MOUTH 4 TIMES DAILY IF NEEDED 10/02/23 Yes Loan Madrigal PA-C atenolol (Tenormin) 25 MG tablet 05/25/22 Yes Historical Provider, baclofen (Lioresal) 10 MG tablet Take 5 mg by mouth 3 times daily. Yes Historical Provider, buprenorphine (Butrans) 5 MCG/HR Place 1 patch on the skin 1 (one) time per week. Yes Historical Provider, empagliflozin (Jardiance) 10 MG Take 10 mg by mouth daily. Yes Historical Provider, famotidine (Pepcid) 20 MG tablet Take 20 mg by mouth in the morning. 05/02/17 Yes Historical Provider, ipratropium (Atrovent) 0.02 % nebulizer solution Take 2.5 mL (0.5 mg) by nebulization every 6 hoursas needed for wheezing or shortness of breath. 08/05/22 Yes Loan Madrigal PA-C oxyCODONE-acetaminophen (Percocet) 5-325 MG tablet Take 1 tablet by mouth every 6 hours as needed for severe pain (7-10). Yes Historical Provider, rivaroxaban (Xarelto) 20 MG tablet Take 20 mg by mouth with evening meal. Take with food. Yes Historical Provider, budesonide-formoterol (Symbicort) 160-4.5 MCG/ACT inhaler Inhale 2 puffs in the morning and 2 puffsin the evening. Rinse mouth with water after use to reduce aftertaste and incidence of candidiasis.Do not swallow.. 08/05/22 01/23/25 Loan Madrigal PA-C budesonide-formoterol (Symbicort) 80-4.5 MCG/ACT inhaler Inhale 2 puffs 2 times daily. Patient not taking: Reported on 04/23/2025 Historical Provider, cholecalciferol (Vitamin D-3) 50 MCG (2000 UT) capsule Take 2,000 Units by mouth daily. Patient not taking: Reported on 04/23/2025 Historical Provider, insulin pen needle (Embrace Pen [place]) 31G X 8 MM misc Use as instructed Patient not taking: Reported on 04/23/2025 04/03/25 LAVELLE Andrews CNP levalbuterol (Xopenex) 0.63 MG/3ML nebulizer solution Take 1 ampule by nebulization as needed for wheezing or shortness of breath. 08/05/22 01/23/25 Loan Madrigal PA-C Risankizumab-rzaa (SKYRIZI SC) Inject under the skin. Historical Provider, teriparatide (Forteo) injection Inject 0.08 mL (20 mcg) under the skin daily. Patient not taking: Reported on 04/23/2025 04/03/25 LAVELLE Andrews CNP tiotropium (Spiriva) [address] 1 capsule (18 mcg) into inhaler and inhale in the morning. 08/05/22 01/23/25 Loan Madrigal PA-C Allergies: Patient has no known allergies. Social History: TOBACCO: reports that she quit smoking about 48 years ago. Her smoking use included cigarettes. Shestarted smoking about 65 years ago. She has a 17 pack- year smoking history. She has never used smokeless tobacco. ETOH: reports no history of alcohol use. RECREATIONAL DRUG USE: Social History Substance and Sexual Activity Drug Use No Family History: Family History[3] ROS: Shoulder pain Denies [facility] Physical Examination: Vitals: 04/23/25 0700 BP: 108/58 Pulse: 80 Resp: 17 Temp: SpO2: 99% Physical Exam Facial bruising NEURO: A&O x3 IGNACIO Left arm in brace No focal deficits noted Results Labs: Last 24hrs Recent Results (from the past 24 hours) Hemoglobin A1c Collection Time: 04/23/25 3:45 AM Result Value Ref Range HEMOGLOBIN A1C 5.2 <5.7 %HbA1C ESTIMATED AVERAGE GLUCOSE 103 mg/dL CBC auto differential Collection Time: 04/23/25 3:45 AM Result Value Ref Range Auto WBC 10.1 3.6 - 10.7 10*3/uL RBC 4.10 3.80 - 5.20 10*6/uL Hemoglobin 13.6 11.7 - 16.0 g/dL Hematocrit 42.4 35.0 - 47.0 % MCV 103.4 (H) 77.0 - 99.0 fL MCH 33.2 26.0 - 34.0 pg MCHC 32.1 30.5 - 36.0 % RDW 13.9 11.5 - 15.0 % Platelets 166 140 - 440 10*3/uL MPV 10.2 9.0 - 12.7 fL nRBC 0.0 0.0 - 2.0 /100 WBCs Neutrophils Relative 82.9 (H) 38.0 - 82.0 % Lymphocytes Relative 9.6 (L) 15.0 - 45.0 % Monocytes Relative 6.3 5.0 - 13.0 % Eosinophils Relative 0.1 0.0 - 6.0 % Basophils Relative 0.5 0.0 - 2.0 % Immature Grans % 0.6 0.0 - 2.0 % Neutrophils Absolute 8.3 (H) 1.8 - 7.5 10*3/uL Lymphocytes Absolute 1.0 1.0 - 4.3 10*3/uL Monocytes Absolute 0.6 0.0 - 0.9 10*3/uL Eosinophils Absolute 0.0 0.0 - 0.5 10*3/uL Basophils Absolute 0.1 0.0 - 0.2 10*3/uL Immature Grans Absolute 0.1 (H) <0.1 10*3/uL Basic metabolic panel Collection Time: 04/23/25 3:45 AM Result Value Ref Range SODIUM 137 136 - 145 mmol/L POTASSIUM 3.9 3.5 - 5.1 mmol/L CHLORIDE 107 98 - 107 mmol/L CARBON DIOXIDE 25 23 - 31 mmol/L UREA NITROGEN 16 9 - 23 mg/dL CREATININE 0.44 (L) 0.57 - 1.11 mg/dL GLUCOSE 101 82 - 115 mg/dL CALCIUM 8.5 (L) 8.8 - 10.0 mg/dL ANION GAP 5 3 - 13 mmol/L eGFR >90.0 >60.0 mL/min/1.73m*2 ECG 12 lead Collection Time: 04/23/25 7:46 AM Result Value Ref Range Heart Rate 68 bpm QRSD Interval 71 ms QT Interval 439 ms QTC Interval 467 ms P Strang 0 degrees QRS Strang 48 degrees T Wave Strang -60 degrees IA Interval 0 ms Radiology Personal review: Repeat CT head showed improvement in right frontal SDH. Interhemispheric SDH noted on first CT. ASSESSMENT / PLAN : 85 yo female s/p fall with SDH CT as above No neurosurgical intervention indicated Continue to hold OAC until OP follow up May start DVT ppx in 48 hrs No need for AED CT head in 1-2 weeks OP Will sign off-info in AVS I spent 50 min reviewing images, labs, examining pt, and discussing plan with pt and other providers regarding SDH. [1] Past Medical History: Diagnosis Date Arthritis Atrial fibrillation (HCC) Chronic obstructive pulmonary disease (HCC) 08/24/2017 Chronic pain Congestive heart failure (CHF) (HCC) GERD (gastroesophageal reflux disease) Hypertension Osteoarthritis Pain management Psoriasis [2] Past Surgical History: Procedure Laterality Date ABDOMINAL SURGERY bladder bowel all dropped APPENDECTOMY BACK SURGERY BLADDER SUSPENSION BRONCHOSCOPY (HISTORICAL) 06/28/2017 Bronch ENB CHOLECYSTECTOMY COLONOSCOPY FINGER SURGERY HERNIA REPAIR umbilical SHOULDER SURGERY Right SPINE SURGERY 1984 TOTAL ABDOMINAL HYSTERECTOMY UPPER GASTROINTESTINAL ENDOSCOPY [3] Family History Adopted: Yes Problem Relation Name Age of Onset Chronic bronchitis Mother Emphysema Mother Cosigned by Anuj Ramos MD at 04/23/2025 1:22 PM EDT [id number]charge [facility]* Discharge Instructions* Sophia Donato PA-C - 04/23/2025 7:43 AM EDT Images from the original note were not included. Orthopaedic Surgery Discharge Instructions: - Non weight bearing left upper extremity - Wear the sling and wrist brace for comfort. Ok to come out of both devices for ROM - Activity as tolerated - Ice to reduce pain and swelling. Do not put ice directly on the skin. - Follow-up outpatient with Dr. Mccauley in one week. The office contact information is provided in your paperwork. - Take medications as prescribed by the hospital doctors - HOLD your Xarelto until follow up with NSGY. You will undergo a repeat head CT OP prior to your NSGY follow up appointment. - Follow up OP with Orthopedics for further evaluation of the left shoulder and right knee. Continue close monitoring of the right knee, if the swelling, redness or pain worsens or your start having fevers, chills, etc. Return for evaluation of infection within the right knee. - Follow up in [facility] Behavioral Health Resources for Trauma Survivors After experiencing a traumatic event, some people may find that they experience psychological distress that can impact their daily functioning and relationships. Common reactions to traumatic events include having unwanted memories or dreams of the event, feeling upset when reminded of the event, tr robby to avoid things that may remind you of the event, or experiencing changes in your thinking, relationships, and behaviors that negatively impact your life. There are resources, including counseling and medications, that can help you to talk about and adjust to the traumatic event and limit its impact on your life. Please consider calling one of the following behavioral health agencies for support: [facility] [address] [facility] [address], [facility] [id number] [facility] [address] [facility], [place], [place] [id number] [place] [id number] [facility] [address], [facility] [id number] [facility] [address] [place] [phone] Should you be out of the [facility] area, you can use this resource to locate local mental health agencies: Findtreatment.gov Victim Assistance Program- provides resources and support to victims of violent crimes, offers victim advocates for those involved in legal proceedings [phone] Should you need immediate help in coping with symptoms or should you feel at risk of harming yourself or others, please use the following crisis resources: Crisis Hotline: 411 Crisis Text Helpine: Text "4HOPE" to 670188 Call 911 or go to your nearest emergency department * Discharge Instr - Other Orders* Rebekah Escalona RN - 04/23/2025 5:52 AM EDT Falling is NOT a normal part of aging. If you have had a fall or have a fear of falling, please reach out for more information on Fall Prevention strategies . blank@[email or web address].org or call #[phone]. * Discharge Instr - ANALY* Cedric Nevarez MD - 04/29/2025 12:09 PM EDT Images from the original note were not included. Continuity of Care Form Patient Name: Lesli Rosales : 1940 Admit date: 04/22/2025 Discharge date: 04/29/2025 Code Status Order: Full Code Advance Directives: N Admitting Physician: Dmoonique Gonzalez MD PCP: Marty Guthrie MD Discharging Nurse: LISA Galdamez Discharging Hospital Unit/Room#: [id number]/W3-325 A Discharging Unit Emergency Contact: Extended Emergency Contact Information Primary Emergency Contact: Hardik Lee Mobile Relation: Son Preferred language: Swiss Grants Specialist needed? No Secondary Emergency Contact: Anna Rosales Mobile Relation: Grandchild Past Surgical History: Past Surgical History: Procedure Laterality Date ABDOMINAL SURGERY bladder bowel all dropped APPENDECTOMY BACK SURGERY BLADDER SUSPENSION BRONCHOSCOPY (HISTORICAL) 06/28/2017 Bronch ENB CHOLECYSTECTOMY COLONOSCOPY FINGER SURGERY HERNIA REPAIR 1959' umbilical SHOULDER SURGERY Right SPINE SURGERY 1985 TOTAL ABDOMINAL HYSTERECTOMY UPPER GASTROINTESTINAL ENDOSCOPY Immunization History: Immunization History Administered Date(s) Administered Moderna SARS-CoV-2 Vaccination 11/12/2020, 12/10/2020, 08/05/2021, 04/01/2022 Active Problems: Medical Problems Problem List * (Principal) Acute subdural hematoma (HCC) Fall Closed fracture of multiple ribs of left side with routine healing Closed fracture of left wrist Hematoma Overview Signed 04/23/2025 6:41 AM by LAVELLE Shaffer CNP knee Pulmonary fibrosis (HCC) Lung nodule Chronic obstructive pulmonary disease (HCC) CONCEPCION (obstructive sleep apnea) Psoriatic arthritis (HCC) Isolation/Infection: No active isolations No active infections Nurse Assessment: Last Vital Signs: BP 121/80 (BP Location: Right arm, Patient Position: Sitting) Pulse 67 Temp 36.4 C (97.5 F) (Temporal) Resp 18 Ht 1.524 m (5') Wt 64 kg (141 lb 1.5 oz) SpO2 96% BMI 27.56 kg/m Last documented pain score (0-10 scale): Last Weight: Wt Readings from Last 1 Encounters: 04/29/25 64 kg (141 lb 1.5 oz) Mental Status: ANALY Patient Mental Status: oriented and alert IV Access: ANALY IV Access: None Nursing Mobility/ADLs: Walking Minimal assistance Transfer Minimal assistance Bathing Minimal assistance Dressing Minimal assistance Toileting Minimal assistance Feeding Independent Forgesmith Minimal assistance Med Delivery yes: whole in pudding/appleasauce Wound Care Documentation and Therapy: Wound/Incision 04/23/25 Traumatic Knee Anterior;Right (Active) Wound Image 04/23/25 0026 Site Assessment Purple;Swelling;Painful 04/29/25 0920 Safia-Wound Assessment Edema;Ecchymotic 04/29/25 0300 Odor None 04/29/25 0920 Drainage Amount None 04/29/25 0920 Treatments Ice applied 04/25/25 0439 Primary Dressing Open to air 04/29/25 0920 Dressing Status Clean, dry & intact 04/29/25 0300 Number of days: 6 Wound/Incision 04/23/25 Traumatic Face Right (Active) Site Assessment Purple 04/29/25 0300 Safia-Wound Assessment Painful 04/29/25 0300 Odor None 04/29/25 0300 Drainage Amount Copious 04/29/25 0300 Primary Dressing Open to air 04/29/25 0300 Number of days: 6 Elimination: Continence: Bowel: yes Bladder: no Urinary Catheter: None Colostomy/Ileostomy/Ileal Conduit: None Date of Last BM: 04/28/2025 Intake/Output Summary (Last 24 hours) at 04/29/2025 1209 Last data filed at 04/29/2025 0556 Gross per 24 hour Intake 780 ml Output 1400 ml Net -620 ml I/O last 3 completed shifts: In: 1020 (15.9 mL/kg) [P.O.:1020] Out: 1400 (21.9 mL/kg) [Urine:1400 (0.6 mL/kg/hr)] Weight: 64 kg Safety Concerns: history of falls (last 30 days) and at risk for falls Impairments/Disabilities: none Nutrition Therapy: Current Nutrition Therapy: Oral diet: general Routes of Feeding: oral Liquids: thin liquids Daily Fluid Restriction: no Last Modified Barium Swallow with Video (Video Swallowing Test): not done Treatments at the Time of Hospital Discharge: Respiratory Treatments: as needed Oxygen Therapy: is on oxygen at 1 L/min per nasal cannula. Ventilator: No ventilator support Rehab Therapies: physical therapy and occupational therapy Weight Bearing Status/Restrictions: non-weight bearing LUE Other Medical Equipment (for information only, NOT a DME order): bedside commode Other Treatments: none Patient's personal belongings (please select all that are sent with patient): glasses, purse, clothes, cell phone RN SIGNATURE: MANAGEMENT/SOCIAL WORK SECTION Inpatient Status Date: 04/22/2025 Discharging to Facility/ Agency Name: [facility] Address: [address] [place], [place] [id number] Dialysis Facility (if applicable) Name: Address: Dialysis Schedule: Phone: Fax: Solar Engineer/Egg Buyer signature: ICIAN SECTION Name: Lesli Rosales Prognosis: good Condition at Discharge: stable Rehab Potential (if transferring to Rehab): good Recommended Labs or Other Treatments After Discharge: - HOLD Xarelto until OP follow up with NSGY, repeat CT head OP prior to NSGY follow up. - Closely monitor right knee hematoma, if signs/sxs of infection occur will need to start antibiotic treatment and Ortho evaluation - restarted home Lasix daily, monitor respiratory status The individual is being admitted to a nursing facility directly from an [facility] or a unit of a [facility] that is not operated by or licensed by [facility] under section 5119.14 or 5160-3-15.1 5 The individual requires the level of services provided by a nursing facility for the condition for which he or she was treated in the hospital and, Physician Certification: I certify the above information and transfer of Lesli Rosales is necessary for the continuing treatment of the diagnosis listed and that she requires acute rehab for less than 30 days. Update Admission H&P: No change in H&P PHYSICIAN SIGNATURE: * Attachments The following attachments cannot be sent through Care Everywhere. * Subdural Hematoma Discharge Instructions (Swiss) * Contusion Discharge Instructions (Swiss) documented in this [facility]09-03-2025 NoteDaily Trauma Progress Note ROB 04/23/2025 6:43 AM Admit Date: 04/22/2025 Post Trauma Day 1 Fall of unknown etiology HISTORY OF TRAUMATIC EVENT: 85 y.o. female status post fall from standing height the incident happened around afternoon on 04/22. The patient was walking through her living room after folding some laundry and fell to the ground striking her right knee and left chest. She is unable to identify the cause of her fall however she does report that she was feeling somewhat dizzy and had a headache throughout the day preceding the fall. She denies any loss of consciousness. Her pain is currently 8/10. She is on Xarelto for A-fib. Patient initially presented to [facility] and was found to have a subdural hematoma 6 mm. She was given PCC prior to transfer for direct admission to T2 ICU. INJURIES: Acute traumatic left frontal and anterior hemispheric subdural hematoma 6mm, no mass effect Acute traumatic left 3 through 7 rib fractures Nondisplaced fracture of the left scaphoid waist Right knee hematoma Imaging reviewed and independently interpreted: CT chest reviewed -multiple acute/chronic rib fractures --> suspect acute 3 through 7 rib fractures anterior on the L CTH - left frontal and interhemispheric subdural hematoma measuring 6 mm without mass effect PROCEDURES: none INCIDENTAL FINDINGS: Chronic compression fractures of T8, L1 and L2 CHIEF COMPLAINT: L shoulder pain Headache R knee pain L rib pain PREVIOUS 24 HOUR EVENTS: Direct admit from [facility] Consults: IP CONSULT TO WOUND PREVENTION IP CONSULT TO ORTHOPAEDIC SURGERY IP CONSULT TO GERIATRICS IP CONSULT TO PALLIATIVE CARE IP CONSULT TO NEUROSURGERY MEDICATIONS: Current Medications[1] ARE THERE PERTINENT UPDATES TO PAST,FAMILY, OR SOCIAL HISTORY?: No Subjective: Patient states she does not know why she fell, she has a slight headache with L shoulder and rib pain this am. Review of Systems Constitutional: Positive for activity change. HENT: Negative. Eyes: Negative. Respiratory: Positive for shortness of breath (with excertion). Cardiovascular: Positive for chest pain (L rib pain). Gastrointestinal: Negative. Genitourinary: Negative. Musculoskeletal: Positive for arthralgias, gait problem, joint swelling and myalgias. Skin: Positive for wound (R knee abrasion). Neurological: Positive for dizziness (intermittent) and headaches. Negative for facial asymmetry, speech difficulty, weakness and light-headedness. Hematological: Bruises/bleeds easily. Psychiatric/Behavioral: Negative for agitation, behavioral problems and confusion. PC-PTSD-5 Had nightmares about the event(s) or thought about the event(s) when you did not want to? No 2. Tried hard not to think about the event(s) or went out of your way to avoid situations that reminded you of the event(s)? No 3. Been constantly on guard, watchful, or easily startled? No 4. Amorita numb or detached from people, activities, or your surroundings? No 5. Amorita guilty or unable to stop blaming yourself or others for the event(s) or any problems the event(s) may have caused? No If yes to 3 or more, [address] CLP consult PHQ In the last 2 weeks have you had: Little interest or pleasure in doing things No Been feeling down, depressed, or hopeless No If greater then 0, place CLP consult Date PHQ completed: 04/23/25 Objective: Patient Vitals for the past 24 hrs: BP Temp Temp src Pulse Resp SpO2 04/23/25 0400 117/58 36.8 ?C (98.3 ?F) Temporal 77 14 96 % 04/23/25 0300 124/70 -- -- 75 16 96 % 04/23/25 0252 -- -- -- 71 19 95 % 04/23/25 0200 141/87 -- -- 81 17 97 % 04/23/25 0100 131/75 -- -- 69 16 96 % 04/23/25 0000 152/89 36.7 ?C (98.1 ?F) Temporal 70 15 95 % No intake or output data in the 24 hours ending 04/23/25 0643 No intake/output data recorded. 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 Constitutional: General: She is not in acute distress. Appearance: Normal appearance. She is not ill-appearing or toxic-appearing. HENT: Head: Normocephalic. Comments: Ecchymosis R temporal region Right Ear: External ear normal. Left Ear: External ear normal. Nose: Nose normal. Mouth/Throat: Mouth: Mucous membranes are moist. Eyes: Extraocular Movements: Extraocular movements intact. Conjunctiva/sclera: Conjunctivae normal. Cardiovascular: Rate and Rhythm: Normal rate. Pulses: Normal pulses. Pulmonary: Effort: Pulmonary effort is normal. No respiratory distress. Chest: Chest wall: Tenderness present. Abdominal: General: Bowel sounds are normal. There is no distension. Palpations: Abdomen is soft. Tenderness: There is no abdominal tenderness. Musculoskeletal: General: Swelling, tenderness and signs of injury present. Cervical back: Normal range of motion and neck supple. No tenderness. Comments: R knee hemato (more content not included)...[facility] 04-23-2025 Consult note* Lucas Mccauley MD - 04/23/2025 2:30 AM EDTAssociated Order(s): IP CONSULT TO ORTHOPAEDIC SURGERY Images from the original note were not included. Ortho Consult Patient: Lesli Rosales Date of : 1940 Acct: [id number] PCP: Marty Guthrie MD Date of Admission: 04/22/2025 Date of Service: Pt seen/examined on 04/24/2025 Chief Complaint: Left shoulder pain, mechanical fall History Of Present Illness: This is a 85 y.o. female presenting with left shoulder pain after a fall from standing earlier today. She is unsure of the mechanism for the fall but believes it was likely mechanical. She initially presented to the [facility] ED where initial workup was significant for a subdural hematoma, a left scaphoid fracture, and left 3rd-7th rib fractures. She was placed into a left removable thumb spica brace and was transferred to [facility] for further management. Of note, she does take Xarelto and states her right knee developed significant swelling following the fall but is not painful. On evaluation, she is endorsing left shoulder pain that she only experiences when she movesthe left upper extremity. She denies pain at rest. She denies pain in the left hand. She denies numbness/tingling in the extremities. Prior remote orthopaedic surgery history of back surgery, a right proximal humerus ORIF, and a right thumb surgery done at an outside hospital. She denies tobacco, alcohol, or illicit drug use. Household ambulator at baseline. Patient ambulation status: walker at home, wheelchair for further distances Antiplatelets/Anticoagulation includes: Xarelto Hx from chart and/or Pt. Past Medical History: Medical History[1] Past Surgical History: Surgical History[2] Home Medications: Prior to Admission medications Medication Sig Start Date End Date Taking? Authorizing Provider albuterol 108 (90 Base) MCG/ACT inhaler USE 2 INHALATIONS BY MOUTH 4 TIMES DAILY IF NEEDED 10/02/23 Yes Loan Madrigal PA-C atenolol (Tenormin) 25 MG tablet 05/25/22 Yes Historical Provider, baclofen (Lioresal) 10 MG tablet Take 5 mg by mouth 3 times daily. Yes Historical Provider, buprenorphine (Butrans) 5 MCG/HR Place 1 patch on the skin 1 (one) time per week. Yes Historical Provider, empagliflozin (Jardiance) 10 MG Take 10 mg by mouth daily. Yes Historical Provider, famotidine (Pepcid) 20 MG tablet Take 20 mg by mouth in the morning. 05/02/17 Yes Historical Provider, ipratropium (Atrovent) 0.02 % nebulizer solution Take 2.5 mL (0.5 mg) by nebulization every 6 hoursas needed for wheezing or shortness of breath. 08/05/22 Yes Loan Madrigal PA-C oxyCODONE-acetaminophen (Percocet) 5-325 MG tablet Take 1 tablet by mouth every 6 hours as needed for severe pain (7-10). Yes Historical Provider, rivaroxaban (Xarelto) 20 MG tablet Take 20 mg by mouth with evening meal. Take with food. Yes Historical Provider, budesonide-formoterol (Symbicort) 160-4.5 MCG/ACT inhaler Inhale 2 puffs in the morning and 2 puffsin the evening. Rinse mouth with water after use to reduce aftertaste and incidence of candidiasis.Do not swallow.. 08/05/22 01/23/25 Loan Madrigal PA-C budesonide-formoterol (Symbicort) 80-4.5 MCG/ACT inhaler Inhale 2 puffs 2 times daily. Patient not taking: Reported on 04/23/2025 Historical Provider, cholecalciferol (Vitamin D-3) 50 MCG (2000 UT) capsule Take 2,000 Units by mouth daily. Patient not taking: Reported on 04/23/2025 Historical Provider, insulin pen needle (Embrace Pen [place]) 31G X 8 MM misc Use as instructed Patient not taking: Reported on 04/23/2025 04/03/25 LAVELLE Andrews CNP levalbuterol (Xopenex) 0.63 MG/3ML nebulizer solution Take 1 ampule by nebulization as needed for wheezing or shortness of breath. 08/05/22 01/23/25 Loan Madrigal PA-C Risankizumab-rzaa (SKYRIZI SC) Inject under the skin. Historical Provider, teriparatide (Forteo) injection Inject 0.08 mL (20 mcg) under the skin daily. Patient not taking: Reported on 04/23/2025 04/03/25 LAVELLE Andresw CNP tiotropium (Spiriva) [address] 1 capsule (18 mcg) into inhaler and inhale in the morning. 08/05/22 01/23/25 Loan Madrigal PA-C Current Hospital Medications: Current Medications[3] Allergies: Patient has no known allergies. Social History: Social History Socioeconomic History Marital status: Spouse name: Not on file Number of children: Not on file Years of education: Not on file Highest education level: Not on file Occupational History Not on file Tobacco Use Smoking status: Former Current packs/day: 0.00 Average packs/day: 1 pack/day for 17.0 years (17.0 ttl pk-yrs) Types: Cigarettes Start date: 05/29/1959 Quit date: 05/29/1976 Years since quittin.9 Smokeless tobacco: Never Vaping Use Vaping status: Never Used Substance and Sexual Activity Alcohol use: No Drug use: No Sexual activity: Not on file Other Topics Concern Not on file Social History Narrative Not on file Social Drivers of Health Financial Resource Strain: Not on file Food Insecurity: Not on file Transportation Needs: No Transportation Needs (04/23/2025) PRAPARE - Transportation Lack of Transportation (Medical): No Lack of Transportation (Non-Medical): No Physical Activity: Not on file Stress: Not on file Social Connections: Not on file Intimate Partner Violence: Not At Risk (04/23/2025) Humiliation, Afraid, Rape, and Kick questionnaire Fear of Current or Ex-Partner: No Emotionally Abused: No Physically Abused: No Sexually Abused: No Housing Stability: Low Risk (04/23/2025) Housing Stability Vital Sign Unable to Pay for Housing in the Last Year: No Number of Times Moved in the Last Year: 1 Homeless in the Last Year: No Family History: Family History[4] Further Family History is noncontributory to this injury. REVIEW OF SYSTEMS: Review of Systems - General ROS: negative for - chills, fatigue, fever, malaise or night sweats Psychological ROS: negative Ophthalmic ROS: negative ENT ROS: negative for - headaches or sore throat Hematological and Lymphatic ROS: negative for - bleeding problems or blood clots Respiratory ROS: no cough, shortness of breath, or wheezing Cardiovascular ROS: no chest pain or dyspnea on exertion Gastrointestinal ROS: negative Musculoskeletal ROS: See HPI Neurological ROS: negative for - bowel and bladder control changes, gait disturbance or numbness/tingling All other systems reviewed and are negative PHYSICAL EXAM: BP 102/54 (BP Location: Right arm, Patient Position: Sitting) Pulse 78 Temp 36.8 C (98.2 F) (Temporal) Resp 18 Ht 1.524 m (5') Wt 64.9 kg (143 lb 1.3 oz) SpO2 98% BMI 27.94 kg/m GENERAL APPEARANCE: Awake and oriented x3. No acute distress. MOOD AND AFFECT: Calm appropriate to situation GAIT AND STATION: Patient is in bed and unable to ambulate secondary to rib pain. COORDINATION and BALANCE: Patient is grossly coordinated. Right Upper Extremity: -No obvious pain or deformity to inspection with normal joint range of motion, stability, and muscle strength except noted below -No TTP over clavicle, shoulder, humerus, elbow, forearm, wrist, hand, or fingers -Radial pulse palpable -SILT in radial/median/ulnar nerve distributions -Motor +AIN/PIN/ulnar nerve functions -Skin intact except where noted below -Painless pROM at shoulder/elbow/wrist There is a well healed surgical incision in the deltopectoral interval. There is significant ecchymoses throughout the right upper extremity. Left Upper Extremity: -No obvious pain or deformity to inspection with normal joint range of motion, stability, and muscle strength except noted below -No TTP over clavicle, shoulder, humerus, elbow, forearm, wrist, hand, or fingers -Radial pulse palpable -SILT in radial/median/ulnar nerve distributions -Motor +AIN/PIN/ulnar nerve functions -Skin intact except where noted below -Painless pROM at elbow/wrist There is no tenderness to palpation over any bony prominence throughout the left upper extremity. There is no tenderness to palpation of the anatomic snuffbox. There is an ecchymosis over the thumb extending into the dorsal aspect of the hand. Patient has pain she states radiates posteriorly through her shoulder with movement of her shoulder. She also has left rib pain with movement of her left shoulder. Right Lower Extremity: -No obvious pain or deformity to inspection with normal joint range of motion, stability, and muscle strength except noted below -No TTP over pelvis, hip, thigh, tibia, lateral mal, medial mal, calc, midfoot, forefoot -Pulse: DP Palpable -SILT in the superficial peroneal, deep peroneal, tibial, sural, saphenous nerve distributions -Motor function of quad, tibialis anterior, extensor hallucis longus, and gactrocsoleus complex intact -Skin intact except where noted below -Painless pROM at hip/knee/ankle There is a large hematoma over the anterior aspect of the knee. This is only tender to palpation over a superficial abrasion on the area of swelling. There is no pain with knee joint range of motion or tenderness along the joint line. Left Lower Extremity: -No obvious pain or deformity to inspection with normal joint range of motion, stability, and muscle strength except noted below -No TTP over pelvis, hip, thigh, knee, lateral mal, medial mal, calc, midfoot, forefoot -TTP: tibia -Pulse: DP Palpable, PT Palpable -SILT in the superficial peroneal, deep peroneal, tibial, sural, saphenous nerve distributions -Motor function of quad, tibialis anterior, extensor hallucis longus, and gactrocsoleus complex intact -Skin intact except where noted below -Painless pROM at hip/knee/ankle There is tenderness over the anterior tibia to palpation, patient states this is chronic and unchanged from baseline. Labs: CBC: Lab Results Component Value Date WBC 11.3 (H) 04/24/2025 RBC 4.20 04/24/2025 BMP: Lab Results Component Value Date GLUCOSE 91 04/24/2025 CO2 28 04/24/2025 BUN 19 04/24/2025 CREATININE 0.51 (L) 04/24/2025 CALCIUM 8.7 (L) 04/24/2025 PT/INR: No results found for: "PT", "INR", "APTT" Type and Screen: No results found for: "RH", "LABANTI" CRP: No results found for: "CRP" ESR: No results found for: "SEDRATE" HgBA1c: No components found for: "LABA1C" The above labs were reviewed by me. Radiology: The below images were independently reviewed and interpreted with pertinent findings noted below. XR: Left hand with scaphoid view: There are degenerative changes noted throughout the hand. There are no acute fractures or dislocations. Right knee (PACS): There are degenerative changes of the knee. There is soft tissue swelling anterior to the knee. No acute fractures or dislocations. Left shoulder: There are degenerative changes present within the shoulder and acromioclavicular joints. There are no acute fractures or dislocations. CT: Cervical spine: There are degenerative changes throughout the cervical spine. There is maintenance of cervical lordosis. Facet joints are congruent. Spinal canal is patent. Transverse foramen are patent. No acute fractures or dislocations. Radiology reports reviewed. ASSESSMENT: 85 y.o. female with left shoulder osteoarthritis and a right knee hematoma PLAN: -Patient is nontender in the left anatomic snuffbox and there is no evidence of acute fracture of the left scaphoid on scaphoid view. She has tenderness with motion of her shoulder. It is unclear if this is referred from her rib fractures or if this is an exacerbation of left shoulder osteoarthritis causing pain with motion. Regardless, there are no fractures of the proximal left humerus where the patient is experiencing pain. -No acute intervention for left shoulder pain. Recommend pain management through the primary service. -Patient given left upper extremity sling and left removable thumb spica brace for comfort -There is a sizable right knee hematoma following a fall on Xarelto. There are no associated fractures on right knee x-ray. Patient is nontender on the bony prominences of the right knee. -No acute intervention for a right knee hematoma without fracture. Recommend compressive dressing for comfort and to aid in hematoma resolution. -Weightbearing as tolerated -Activity as tolerated -Ice & elevate -Neurovascular checks -Skin checks -Follow-up outpatient - Pain and medical management per trauma -Orthopaedic surgery will sign off. Please page office 365 consultant orthopaedic resident for questions or concerns. Ezequiel Dent M.D. PGY-2 Orthopaedic Surgery Attestation: The patient was seen, examined and all relevant radiographs were reviewed and independently interpreted which show no acute fractures and only degenerative changes as above. I agree withwhat is documented above with any changes noted. The plan of care was discussed with the evaluatingresident. Electronically signed by Lucas Mccauley M.D. 04/24/2025 at 12:15 PM. [1] Past Medical History: Diagnosis Date Arthritis Atrial fibrillation (HCC) Chronic obstructive pulmonary disease (HCC) 08/24/2017 Chronic pain Congestive heart failure (CHF) (HCC) GERD (gastroesophageal reflux disease) Hypertension Osteoarthritis Pain management Psoriasis [2] Past Surgical History: Procedure Laterality Date ABDOMINAL SURGERY bladder bowel all dropped APPENDECTOMY BACK SURGERY BLADDER SUSPENSION BRONCHOSCOPY (HISTORICAL) 06/28/2017 Bronch ENB CHOLECYSTECTOMY COLONOSCOPY FINGER SURGERY HERNIA REPAIR 1959' umbilical SHOULDER SURGERY Right SPINE SURGERY 1984 TOTAL ABDOMINAL HYSTERECTOMY UPPER GASTROINTESTINAL ENDOSCOPY [3] Current Facility-Administered Medications: acetaminophen (Tylenol) tablet 1,000 mg, 1,000 mg, Oral, q8h, LAVELLE Shaffer CNP, 1,000 mg at 04/24/25 0517 atenolol (Tenormin) tablet 25 mg, 25 mg, Oral, Daily, LAVELLE Shaffer CNP, 25 mg at 817 baclofen (Lioresal) tablet 5 mg, 5 mg, Oral, Nightly, LAVELLE Jones CNP, 5 mg at buprenorphine (Butrans) 5 MCG/HR 5 mcg, 5 mcg, TransDERmal, Weekly, LAVELLE Jones CNP, 5 mcg at 04/24/25 1040 cholecalciferol (Vitamin D-3) tablet 2,000 Units, 2,000 Units, Oral, Daily, LAVELLE Shaffer CNP, 2,000 Units at 04/24/25 0817 dextrose 5 % infusion, 100 mL/hr, IntraVENous, PRN, LAVELLE Shaffer CNP dextrose 50 % solution 12.5 g, 12.5 g, IntraVENous, PRN, LAVELLE Shaffer CNP famotidine (Pepcid) tablet 20 mg, 20 mg, Oral, Daily, LAVELLE Shaffer CNP, 20 mg at 817 gabapentin (Neurontin) capsule 100 mg, 100 mg, Oral, q12h, LAVELLE Shaffer CNP, 100 mg at 04/24/25 0821 glucagon (human recombinant) injection 1 mg, 1 mg, IntraMUSCular, PRN, LAVELLE Shaffer CNP glucose oral gel 15 g, 15 g, Oral, PRN, LAVELLE Shaffer CNP HYDROmorphone (Dilaudid) injection 0.5 mg, 0.5 mg, IntraVENous, q4h PRN, Ninfa Colindres MD, 0.5 mg at 04/24/25 1140 Insulin Lispro (Humalog) injection 0-12 Units, 0-12 Units, SubCUTAneous, TID WC AND Insulin Lispro (Humalog) injection 0-12 Units, 0-12 Units, SubCUTAneous, Nightly, LAVELLE Shaffer CNP ipratropium-albuterol (Duo-Neb) 0.5-2.5 mg/3 mL nebulizer solution 3 mL, 3 mL, Nebulization, 4x daily, LAVELLE Shaffer CNP, 3 mL at 04/24/25 1145 ipratropium-albuterol (Duo-Neb) 0.5-2.5 mg/3 mL nebulizer solution 3 mL, 3 mL, Nebulization, q2h PRN, LAVELLE Shaffer CNP, 3 mL at 04/24/25 0528 melatonin tablet 3 mg, 3 mg, Oral, Nightly PRN, LAVELLE Jones CNP mometasone-formoterol (Dulera 100) 100-5 MCG/ACT inhaler 2 puff, 2 puff, Inhalation, BID, LAVELLE Shaffer CNP, 2 puff at 04/24/25 0822 naloxone (Narcan) injection 0.4 mg, 0.4 mg, IntraVENous, PRN, LAVELLE Shaffer CNP ondansetron ODT (Zofran-ODT) disintegrating tablet 4 mg, 4 mg, Oral, q8h PRN OR ondansetron (Zofran) injection 4 mg, 4 mg, IntraVENous, q6h PRN, LAVELLE Shaffer CNP, 4 mg at 04/23/25 0405 oxyCODONE (Roxicodone) immediate release tablet 10 mg, 10 mg, Oral, q4h PRN, Ninfa Colindres MD oxyCODONE (Roxicodone) immediate release tablet 5 mg, 5 mg, Oral, q4h PRN, 5 mg at 04/24/25 1040 OR [DISCONTINUED] oxyCODONE (Roxicodone) immediate release tablet 10 mg, 10 mg, Oral, q4h PRN, Marsha Skinner MD, 10 mg at 04/23/25 0402 polyethylene glycol (PEG) 3350 (Miralax) packet 17 g, 17 g, Oral, Daily, LAVELLE Shaffer CNP, 17 g at 04/24/25 0816 sennosides (Senokot) tablet 17.2 mg, 2 tablet, Oral, BID, LAVELLE Shaffer CNP, 17.2 mg at 04/24/25 0817 sodium chloride 0.9% (NS) flush 30 mL, 30 mL, IntraVENous, q6h, Victorina Garsia APRN - MARJ, 30 mL at 04/24/25 0825 sodium chloride 0.9% (NS) flush 30 mL, 30 mL, IntraVENous, PRN, Victorina Garsia APRN - MARJ sodium chloride 0.9% (NS) flush 30 mL, 30 mL, IntraVENous, PRN, Victorina Garsia APRN - RN HEMODIALYSIS sodium chloride 3 % hypertonic nebulizer solution 4 mL, 4 mL, Nebulization, q12h, LAVELLE Shaffer CNP, 4 mL at 04/24/25 0817 tiotropium (Spiriva Respimat) 2.5 MCG/ACT inhaler 2 puff, 2 puff, Inhalation, Daily, Victorina Garsia, SHUTTLE DRIVER - RN HEMODIALYSIS, 2 puff at 04/24/25 0816 [4] Family History Adopted: Yes Problem Relation Name Age of Onset Chronic bronchitis Mother Emphysema Mother [facility] Work Phone: [phone] History and physical note* Marsha Skinner MD - 04/23/2025 1:01 AM EDT Images from the original note were not included. Former[facility] Trauma H&P 04/23/2025 2:33 AM Trauma Attending: Dr. Gonzalez Level of Initial Activation: Direct Admit Upgraded: No To:N/A Mechanism of Injury: Fall of uncertain etiology, from standing height Mechanism of Arrival:Transfer from [facility] Chief Complaint: History of Traumatic Injury: 85 y.o. female status post fall from standing height the incident happened around afternoon on 04/22. The patient was walking through her living room after folding some laundry and fell to the ground striking her right knee and left chest. She is unable to identify the cause of her fall however she does report that she was feeling somewhat dizzy and had a headache throughout the day preceding the fall. She denies any loss of consciousness. Her pain is currently 8/10. She is on Xarelto for A-fib. Patient initially presented to [facility] and was found to have a subduralhematoma 6 mm. She was given PCC prior to transfer for direct admission to T2 ICU. Did the Patient have LOC?No C-collar in place on arrival? No Was the patient on an antiplatelet or anticoagulant medication? Yes If yes, which one? Xarelto, status post PCC at [facility] COVID-19 Risk Screening Tool: Has patient previously been tested for COVID-19? Yes Is the patient coming from a nursing facility or congregate care facility? No Has the patient been in close contact with a COVID-19 positive patient? No Has the patient recently experienced any of the following: fever, cough, [id number], myalgias, loss of taste/smell, diarreha/GI symptoms? No If any of the screen questions are answered 'yes,' consider ordering a COVID test Medical History[1] Surgical History[2] Family History[3] Social History Socioeconomic History Marital status: Spouse name: Not on file Number of children: Not on file Years of education: Not on file Highest education level: Not on file Occupational History Not on file Tobacco Use Smoking status: Former Current packs/day: 0.00 Average packs/day: 1 pack/day for 17.0 years (17.0 ttl pk-yrs) Types: Cigarettes Start date: 05/29/1959 Quit date: 05/29/1976 Years since quittin.9 Smokeless tobacco: Never Vaping Use Vaping status: Never Used Substance and Sexual Activity Alcohol use: No Drug use: No Sexual activity: Not on file Other Topics Concern Not on file Social History Narrative Not on file Social Drivers of Health Financial Resource Strain: Not on file Food Insecurity: Not on file Transportation Needs: No Transportation Needs (04/23/2025) PRAPARE - Transportation Lack of Transportation (Medical): No Lack of Transportation (Non-Medical): No Physical Activity: Not on file Stress: Not on file Social Connections: Not on file Intimate Partner Violence: Not At Risk (04/23/2025) Humiliation, Afraid, Rape, and Kick questionnaire Fear of Current or Ex-Partner: No Emotionally Abused: No Physically Abused: No Sexually Abused: No Housing Stability: Low Risk (04/23/2025) Housing Stability Vital Sign Unable to Pay for Housing in the Last Year: No Number of Times Moved in the Last Year: 1 Homeless in the Last Year: No Medications Ordered Prior to Encounter[4] Current Medications[5] Who is healthcare POA or next of kin? SonNathaniel Does the patient have a DNR? No Living Will? No Allergies[6] PRIMARY SURVEY: AIRWAY: Airway Normal EMS Airway Absent Noisy respirations Absent Vomiting/bleeding: Absent BREATHING: Spontaneous Respirations: Present Midaxillary breath sound left: Present Midaxillary breath sound right: Present CIRCULATION: Left Femoral pulse rate: Normal Left Femoral pulse intensity: Present Right Femoral pulse rate: Normal Right Femoral pulse intensity: Present INITIAL VITALS: Patient Vitals for the past 24 hrs: BP Temp Temp src Pulse Resp SpO2 04/23/25 0000 152/89 36.7 C (98.1 F) Temporal 70 15 95 % FAST EXAM: Performed: No Results: N/A DISABILITY: GCS Initial Eye Verbal Motor 4 - Opens eyes on own 5 - Alert and oriented 6 - Follows simple motor commands Neuromuscular blockade: No Pupil size: Left 3mm Right 3mm Pupil reaction: Yes Wiggles fingers: Left Yes Right Yes Wiggles toes: Left Yes Right Yes Hand grasp: Left Normal Right Normal Plantar flexion: Left Normal Right Normal Secondary Survey: SECONDARY VITALS: See above Review of Systems Constitutional: Negative for chills and fever. Eyes: Negative for photophobia and visual disturbance. Respiratory: Negative for chest tightness and shortness of breath. Cardiovascular: Negative for chest pain and palpitations. Gastrointestinal: Negative for abdominal pain. Neurological: Positive for dizziness and headaches. Negative for syncope, speech difficulty, light-headedness and numbness. Physical Exam Vitals and nursing note reviewed. Constitutional: General: She is not in acute distress. Appearance: Normal appearance. She is not diaphoretic. HENT: Head: Normocephalic. Right Ear: External ear normal. Left Ear: External ear normal. Ears: Comments: Grossly atraumatic Nose: Nose normal. No rhinorrhea. Comments: No nasal septal hematoma Mouth/Throat: Comments: No signs of trauma to the oropharynx No malocclusion Eyes: General: No scleral icterus. Right eye: No discharge. Left eye: No discharge. Neck: Comments: C-spine non-tender, no palpable step-offs Trachea Midline Cardiovascular: Rate and Rhythm: Normal rate and regular rhythm. Pulses: Normal pulses. Comments: Left chest wall tenderness Pulmonary: Effort: Pulmonary effort is normal. No respiratory distress. Breath sounds: No stridor. Comments: Chest wall stable but TTP over left anterior inferior chest extending laterally Chest: Chest wall: No tenderness. Abdominal: General: There is no distension. Palpations: Abdomen is soft. Tenderness: There is no abdominal tenderness. There is no guarding or rebound. Genitourinary: Comments: Positive gluteal squeeze. Musculoskeletal: General: Normal range of motion. Comments: Right knee swelling with ecchymosis. Left wrist with bony TTP. Left shoulder motion limited by pain. No visible deformity, motor and sensory intact throughout. Pelvis is stable to AP and lateral compression. T-Spine non-tender, no palpable step offs L-Spine non-tender, no palpable step offs Skin: General: Skin is warm and dry. Neurological: General: No focal deficit present. Mental Status: She is alert and oriented to person, place, and time. Sensory: No sensory deficit. Psychiatric: Mood and Affect: Mood normal. Behavior: Behavior normal. CBC: No results found for: "WBC", "RBC", "HGB", "HCT", "MCV", "MCH", "MCHC", "RDW", "PLT", "MPV" BMP: No results found for: "NA", "K", "CL", "CO2", "BUN", "CREATININE", "CALCIUM", "LABGLOM", "GLUCOSE", "GLU" Urine Toxicology: No components found for: "IAMMENTA", "IBARBIT", "IBENZO", "ICOCAINE", "IMARTHC", "IOPIATES", "IPHENCYC" IV Access: pivs NG/OG: No [place]: No Radiology: Images in PACS, reads from [facility] in media tab as follows: CT head demonstrates 6mm SDH of left frontal and interhemispheric region without mass effect CT C-spine without acute injury CT chest: "multiple bilateral nondisplaced cortical buckle fracture deformities, some of which may be acute. Correlate with point area tenderness. Chronic appearing compression fractures of T8, L1 and L2 with kyphoplasty bone cement at L2 no significant retropulsion." XR left wrist-probable nondisplaced fracture of the left scaphoid waist, no dislocation XR right knee no acute fracture or dislocation, prominent prepatellar soft tissue swelling XR left shoulder-no acute fracture or dislocation ASSESSMENT: 85-year-old female status post fall of uncertain etiology from standing height on Xarelto. Presented to [facility] found to have left frontal and interhemispheric subdural hematoma measuring 6 mm without mass effect, as well as concern for acute left rib fractures on personal review of imaging and by comparison with exam most concerning for left 3rd through 7th rib fractures as well as a left scaphoid fx. Problem List[7] PLAN: Neuro / Spine - Neurosurgery consulted, recommend the following: - Repeat CT head in AM - Seizure ppx: None indicated - SBP less than 160 - Elevate head of bed 30 degrees - Neurochecks every hour per protocol - Pain control: Tylenol, gabapentin, as needed oxy, as needed Dilaudid - Palliative consult - Geriatrics consult Cardiovascular - Hemodynamically stable - BP Goal <160 SBP - Telemetry - orthostatic Bps - EKG Pulmonary # Acute left 3rd through 7th rib fractures - Multimodal pain control as above - Daily chest x-rays - Aggressive pulm toilet with incentive spirometry and AccuPAP - Defer acute pain consult for Xarelto washout (sp PCC) #COPD - DuoNebs - standard O2 protocol; patient on as needed oxygen at home, O2 goal SpO2 greater than 88% FEN/GI - NPO with NS 125cc/H - Zofran PRN - TELEPHONE CLERK TELEGRAPH OFFICE consulted - Daily BMP, CBC - No acute issues - Monitor I/Os - Goal UOP > 0.5 ml/kg/hr Endocrine - No acute issues Heme - Hgb stable - No transfusions indicated ID - No acute issues - No antibiotics indicated Musculoskeletal: #left scaphoid fx - ortho consult, appreciate recs Lines/Devices: - PIV Prophylaxis: DVT: SCDs, no chemoppx Has DVT PPX been started? Yes If no, why? Patient with Acute Head Bleed GI: Pepcid 20mg bid Pressure Ulcer: Continue to monitor, q2 turns Musculoskeletal: - PT/OT - Bedrest Disposition: T2 for neurochecks Neurosurgery Dr Ramos was notified at 132a and responded at same time. He evaluated imaging anddiscussed plan as listed above Orthopedics resident was notified at 206am and responded at same time. He evaluated imaging and thefollowing plan was discussed: to be evaluated by resident team Can DVT PPX be started? No If no, why? Patient with Acute Head Bleed If DVT PPX can be started, has order been placed? No Consultants:see above When Reached: FRAIL SCALE for Patients Greater than Age 65 - All others choose N/A: F:Fatigue - Does the patient fatigue or get exhausted easily? No R:Resistance - Does the patient have trouble walking up one flight of stairs independently? No A:Ambulation - Does the patient have trouble walking one block (1/4 Mile)? Yes I:Illnesses - Does the patient have five or more illnesses (comorbidities)? Yes L:Loss of weight - Has the patient lost weight (5 to 10 percent) over the last 6 months to one year? No Greater than 2 "Yes" answers consider palliative consult. [1] Past Medical History: Diagnosis Date Arthritis Atrial fibrillation (HCC) Chronic obstructive pulmonary disease (HCC) 08/24/2017 Chronic pain Congestive heart failure (CHF) (HCC) GERD (gastroesophageal reflux disease) Hypertension Osteoarthritis Pain management Psoriasis [2] Past Surgical History: Procedure Laterality Date ABDOMINAL SURGERY bladder bowel all dropped APPENDECTOMY BACK SURGERY BLADDER SUSPENSION BRONCHOSCOPY (HISTORICAL) 06/28/2017 Bronch ENB CHOLECYSTECTOMY COLONOSCOPY FINGER SURGERY HERNIA REPAIR 1959' umbilical SHOULDER SURGERY Right SPINE SURGERY 1984 TOTAL ABDOMINAL HYSTERECTOMY UPPER GASTROINTESTINAL ENDOSCOPY [3] Family History Adopted: Yes Problem Relation Name Age of Onset Chronic bronchitis Mother Emphysema Mother [4] No current facility-administered medications on file prior to encounter. Current Outpatient Medications on File Prior to Encounter Medication Sig Dispense Refill albuterol 108 (90 Base) MCG/ACT inhaler USE 2 INHALATIONS BY MOUTH 4 TIMES DAILY IF NEEDED 34 g 2 atenolol (Tenormin) 25 MG tablet baclofen (Lioresal) 10 MG tablet Take 5 mg by mouth 3 times daily. buprenorphine (Butrans) 5 MCG/HR Place 1 patch on the skin 1 (one) time per week. empagliflozin (Jardiance) 10 MG Take 10 mg by mouth daily. famotidine (Pepcid) 20 MG tablet Take 20 mg by mouth in the morning. ipratropium (Atrovent) 0.02 % nebulizer solution Take 2.5 mL (0.5 mg) by nebulization every 6 hoursas needed for wheezing or shortness of breath. 75 mL 11 oxyCODONE-acetaminophen (Percocet) 5-325 MG tablet Take 1 tablet by mouth every 6 hours as needed for severe pain (7-10). rivaroxaban (Xarelto) 20 MG tablet Take 20 mg by mouth with evening meal. Take with food. budesonide-formoterol (Symbicort) 160-4.5 MCG/ACT inhaler Inhale 2 puffs in the morning and 2 puffsin the evening. Rinse mouth with water after use to reduce aftertaste and incidence of candidiasis.Do not swallow.. 3 each 3 budesonide-formoterol (Symbicort) 80-4.5 MCG/ACT inhaler Inhale 2 puffs 2 times daily. (Patient nottaking: Reported on 04/23/2025) cholecalciferol (Vitamin D-3) 50 MCG (2000 UT) capsule Take 2,000 Units by mouth daily. (Patient not taking: Reported on 04/23/2025) insulin pen needle (Embrace Pen [place]) 31G X 8 MM misc Use as instructed (Patient not taking: Reported on 04/23/2025) 100 each 3 levalbuterol (Xopenex) 0.63 MG/3ML nebulizer solution Take 1 ampule by nebulization as needed for wheezing or shortness of breath. 72 mL 5 Risankizumab-rzaa (SKYRIZI SC) Inject under the skin. teriparatide (Forteo) injection Inject 0.08 mL (20 mcg) under the skin daily. (Patient not taking: Reported on 04/23/2025) 1 each 11 tiotropium (Spiriva) [address] 1 capsule (18 mcg) into inhaler and inhale in the morning. 30 capsule 11 [5] Current Facility-Administered Medications: acetaminophen (Tylenol) tablet 1,000 mg, 1,000 mg, Oral, q8h, Marsha Skinner MD, 1,000 mg at 04/23/25 0222 atenolol (Tenormin) tablet 25 mg, 25 mg, Oral, Daily, Marsha Skinner MD baclofen (Lioresal) tablet 5 mg, 5 mg, Oral, TID, Marsha Skinner MD dextrose 5 % infusion, 100 mL/hr, IntraVENous, PRN, Marsha Skinner MD dextrose 50 % solution 12.5 g, 12.5 g, IntraVENous, PRN, Marsha Skinner MD gabapentin (Neurontin) capsule 100 mg, 100 mg, Oral, TID, Marsha Skinner MD glucagon (human recombinant) injection 1 mg, 1 mg, IntraMUSCular, PRN, Marsha Skinner MD glucose oral gel 15 g, 15 g, Oral, PRN, Marsha Skinner MD HYDROmorphone (Dilaudid) injection 0.25 mg, 0.25 mg, IntraVENous, q3h PRN OR HYDROmorphone (Dilaudid) injection 0.5 mg, 0.5 mg, IntraVENous, q3h PRN, Marsha Skinner MD, 0.5 mg at 04/23/25 0222 Insulin Lispro (Humalog) injection 0-12 Units, 0-12 Units, SubCUTAneous, TID WC AND Insulin Lispro (Humalog) injection 0-12 Units, 0-12 Units, SubCUTAneous, Nightly, Marsha Skinner MD ipratropium-albuterol (Duo-Neb) 0.5-2.5 mg/3 mL nebulizer solution 3 mL, 3 mL, Nebulization, TID, Marsha Skinner MD ipratropium-albuterol (Duo-Neb) 0.5-2.5 mg/3 mL nebulizer solution 3 mL, 3 mL, Nebulization, PRN, Marsha Skinner MD mometasone-formoterol (Dulera 100) 100-5 MCG/ACT inhaler 2 puff, 2 puff, Inhalation, BID, Marsha Skinner MD mupirocin (Bactroban) 2 % ointment 1 Application, 1 Application, Nasal, BID, Marsha Skinner MD naloxone (Narcan) injection 0.4 mg, 0.4 mg, IntraVENous, PRN, Marsha Skinner MD ondansetron ODT (Zofran-ODT) disintegrating tablet 4 mg, 4 mg, Oral, q8h PRN OR ondansetron (Zofran) injection 4 mg, 4 mg, IntraVENous, q6h PRN, Marsha Skinner MD oxyCODONE (Roxicodone) immediate release tablet 5 mg, 5 mg, Oral, q4h PRN OR oxyCODONE (Roxicodone) immediate release tablet 10 mg, 10 mg, Oral, q4h PRN, Marsha Skinner MD polyethylene glycol (PEG) 3350 (Miralax) packet 17 g, 17 g, Oral, Daily, Marsha Skinner MD sodium chloride 0.9 % infusion, 75 mL/hr, IntraVENous, Continuous, Marsha Skinner MD sodium chloride 0.9% (NS) flush 30 mL, 30 mL, IntraVENous, q6h, Marsha Skinner MD sodium chloride 0.9% (NS) flush 30 mL, 30 mL, IntraVENous, PRN, Marsha Skinner MD sodium chloride 0.9% (NS) flush 30 mL, 30 mL, IntraVENous, PRN, Marsha Skinner MD [6] No Known Allergies [7] Patient Active Problem List Diagnosis Pulmonary fibrosis (HCC) Lung nodule Chronic obstructive pulmonary disease (HCC) CONCEPCION (obstructive sleep apnea) Psoriatic arthritis (HCC) Acute subdural hematoma (HCC) Cosigned by Domonique Gonzalez MD at 04/23/2025 6:28 AM EDT Associated attestation - Domonique Gonzalez MD - 04/23/2025 6:28 AM EDT ATTENDING ADDENDUM I independently saw the above patient and reviewed the recent events, imaging, labs, vital signs; Iperformed a physical exam and ROS. My findings agree with the above note except for any details corrected below. Problem List[1] A complete review of systems was obtained and is negative except as stated in HPI. HPI: 85 y.o. female status post fall from standing height the incident happened around afternoon on 04/22.The patient was walking through her living room after folding some laundry and fell to the ground striking her right knee and left chest. She is unable to identify the cause of her fall however she does report that she was feeling somewhat dizzy and had a headache throughout the day preceding the fall. She denies any loss of consciousness. Her pain is currently 8/10. She is on Xarelto for A-fib. Patient initially presented to [facility] and was found to have a subdural hematoma 6 mm. She was givenPCC prior to transfer for direct admission to T2 ICU. Imaging reviewed and independently interpreted: CT chest reviewed -multiple acute/chronic rib fractures --> suspect acute 3 through 7 rib fractures anterior on the L CTH - left frontal and interhemispheric subdural hematoma measuring 6 mm without mass effect Problem list: Acute, acute on chronic, unstable or uncontrolled chronic problems/diagnoses: Acute traumatic left frontal and anterior hemispheric subdural hematoma 6mm, no mass effect Acute traumatic left 3 through 7 rib fractures Nondisplaced fracture of the left scaphoid waist Acute traumatic pain Right knee hematoma ?Pre-syncopal fall Incidental - Chronic compression fractures of T8, L1 and L2 Stable chronic problems, affecting patient care: Medical History[2] 24h: TTP L chest wall Complains of left shoulder pain Geriatric and palliative consultation Patient will need medication reconciliation Plan: Neurological system #Acute traumatic left frontal and anterior hemispheric subdural hematoma 6mm, no mass effect - Patient received PCC at the OSH for Xarelto - No seizure prophylaxis at this time - Repeat CT in the morning - Elevate head of bed 30 degrees # Chronic pain - Home amitriptyline - home buprenorphine patch - Home baclofen #Acute pain - Multimodal pain control # At risk for delirium/acute encephalopathy - Delirium precautions: increase activity, limit nighttime disturbances, and avoid anticholinergic meds, benzos, etc Circulatory system # Atrial fibrillation, hypertension, HFpEF - 02/11/21 echo EF 68% - Hold Xarelto - atenolol 25 mg - Hold home Xarelto - restart Home Jardiance 10 mg - Repeat echo - SBP 110-160 - PRN anti-htn med - HOLD home Lasix 20 mg as needed edema Respiratory system # COPD # Acute traumatic left 3 through 7 rib fractures - Home Symbicort -> substitute Dulera - O2 protocol - Aggressive pulmonary hygiene Gastrointestinal system # GERD -Home Pepcid - Bowel regimen Renal function - Strict I/Os Immunologic system [x] Mupirocin for empiric MRSA decolonization x5 days - Monitor for fevers Hematologic system - Monitor hemoglobin Endocrine system - Monitor glucose Integumentary system (GI and cutaneous) - Skin checks # Right knee hematoma - CTM Musculoskeletal system - PTOT #Nondisplaced fracture of the left scaphoid waist - Orthopedic consultation - Nonweightbearing left upper extremity Ppx - DVT prophylaxis: SCDs - GI prophylaxis: []PPI, [x]Pepcid MEDS: Scheduled PRN Scheduled Meds[3] PRN Meds[4] Continuous Continuous Meds[5] Patient evaluated on 04/23/2025 Critical Care time spent 48 min. The time involved in the performance of this care was exclusive ofseparately billable procedures, teaching time and treating other patients. The time was spent personally by the attending physician for the following activities: examination of the patient, ordering and/or performing treatment, reviewing the laboratory and radiographic studies, and if applicable, ventilator management and blood gas interpretation. Critical Care was necessary because of an illness or injury that actively impaired one or more vital organ systems such that there was a high probability of imminent life treatening deterioration in the patient's condition. The following organ systems are involved: Neurologic, Respiratory Level of Medical Decision Making: risk of morbidity from additional diagnostic testing or treatment [x]High []Moderate Complexity: Acute or chronic illness posing a threat to life (HIGH) Risk: Requires close neuro-critical care monitoring due to risk of neurological deterioration (HIGH) Personally Reviewed/Independently interpreted patient's: [x]Epic notes [x]Radiology studies [x]Labs []EKG []Ordering tests []Other Discussed/ With: [x]Patient/Family [x]RN [x]Consultants []SW/TCC []Other Domonique Gonzalez MD Division of Trauma Department of Surgery [facility] ~~~~~~~~~~~~~~~~~~~~~~~~~~~~~~~~~~~~~~~~~~~~~~~~~~~~~~~~~~~~~~~~~~~~~~~ This note may have been dictated using [employer] Medical Practice Edition 2.6 and/or [employer] Voice Recognition Feature. The document was proofread; however, unrecognized voice recognition ichthyologist errors may be present. [1] Patient Active Problem List Diagnosis Pulmonary fibrosis (HCC) Lung nodule Chronic obstructive pulmonary disease (HCC) CONCEPCION (obstructive sleep apnea) Psoriatic arthritis (HCC) Acute subdural hematoma (HCC) [2] Past Medical History: Diagnosis Date Arthritis Atrial fibrillation (HCC) Chronic obstructive pulmonary disease (HCC) 08/24/2017 Chronic pain Congestive heart failure (CHF) (HCC) GERD (gastroesophageal reflux disease) Hypertension Osteoarthritis Pain management Psoriasis [3] acetaminophen, 1,000 mg, Oral, q8h atenolol, 25 mg, Oral, Daily baclofen, 5 mg, Oral, TID gabapentin, 100 mg, Oral, TID insulin lispro, 0-12 Units, SubCUTAneous, TID WC And insulin lispro, 0-12 Units, SubCUTAneous, Nightly ipratropium-albuterol, 3 mL, Nebulization, TID mometasone-formoterol, 2 puff, Inhalation, BID mupirocin, 1 Application, Nasal, BID polyethylene glycol (PEG) 3350, 17 g, Oral, Daily sodium chloride 0.9%, 30 mL, IntraVENous, q6h [4] PRN medications: dextrose, dextrose, glucagon (rDNA), glucose, HYDROmorphone OR HYDROmorphone, ipratropium-albuterol, naloxone, ondansetron ODT OR ondansetron, oxyCODONE OR oxyCODONE,sodium chloride 0.9%, sodium chloride 0.9% [5] sodium chloride, 75 mL/hr, Last Rate: 75 mL/hr (04/23/25 0300) [id number] Attestation signed by Domonique Gonzalez MD at 04/23/2025 6:28 AM ATTENDING ADDENDUM I independently saw the above patient and reviewed the recent events, imaging, labs, vital signs; I performed a physical exam and ROS. My findings agree with the above note except for any details corrected below. Problem List[1] A complete review of systems was obtained and is negative except as stated in HPI. HPI: 85 y.o. female status post fall from standing height the incident happened around afternoon on 04/22. The patient was walking through her living room after folding some laundry and fell to the ground striking her right knee and left chest. She is unable to identify the cause of her fall however she does report that she was feeling somewhat dizzy and had a headache throughout the day preceding the fall. She denies any loss of consciousness. Her pain is currently 8/10. She is on Xarelto for A-fib. Patient initially presented to [facility] and was found to have a subdural hematoma 6 mm. She was given PCC prior to transfer for direct admission to T2 ICU. Imaging reviewed and independently interpreted: CT chest reviewed -multiple acute/chronic rib fractures --> suspect acute 3 through 7 rib fractures anterior on the L CTH - left frontal and interhemispheric subdural hematoma measuring 6 mm without mass effect Problem list: Acute, acute on chronic, unstable or uncontrolled chronic problems/diagnoses: Acute traumatic left frontal and anterior hemispheric subdural hematoma 6mm, no mass effect Acute traumatic left 3 through 7 rib fractures Nondisplaced fracture of the left scaphoid waist Acute traumatic pain Right knee hematoma ?Pre-syncopal fall Incidental - Chronic compression fractures of T8, L1 and L2 Stable chronic problems, affecting patient care: Medical History[2] 24h: TTP L chest wall Complains of left shoulder pain Geriatric and palliative consultation Patient will need medication reconciliation Plan: Neurological system #Acute traumatic left frontal and anterior hemispheric subdural hematoma 6mm, no mass effect - Patient received PCC at the OSH for Xarelto - No seizure prophylaxis at this time - Repeat CT in the morning - Elevate head of bed 30 degrees # Chronic pain - Home amitriptyline - home buprenorphine patch - Home baclofen #Acute pain - Multimodal pain control # At risk for delirium/acute encephalopathy - Delirium precautions: increase activity, limit nighttime disturbances, and avoid anticholinergic meds, benzos, etc Circulatory system # Atrial fibrillation, hypertension, HFpEF - 02/11/21 echo EF 68% - Hold Xarelto - atenolol 25 mg - Hold home Xarelto - restart Home Jardiance 10 mg - Repeat echo - SBP 110-160 - PRN anti-htn med - HOLD home Lasix 20 mg as needed edema Respiratory system # COPD # Acute traumatic left 3 through 7 rib fractures - Home Symbicort -> substitute Dulera - O2 protocol - Aggressive pulmonary hygiene Gastrointestinal system # GERD -Home Pepcid - Bowel regimen Renal function - Strict I/Os Immunologic system [x] Mupirocin for empiric MRSA decolonization x5 days - Monitor for fevers Hematologic system - Monitor hemoglobin Endocrine system - Monitor glucose Integumentary system (GI and cutaneous) - Skin checks # Right knee hematoma - CTM Musculoskeletal system - PTOT #Nondisplaced fracture of the left scaphoid waist - Orthopedic consultation - Nonweightbearing left upper extremity Ppx - DVT prophylaxis: SCDs - GI prophylaxis: []PPI, [x]Pepcid MEDS: Scheduled PRN Scheduled Meds[3] PRN Meds[4] Continuous Continuous Meds[5] Patient evaluated on 04/23/2025 Critical Care time spent 48 min. The time involved in the performance of this care was exclusive of separately billable procedures, teaching time and treating other patients. The time was spent personally by the attending physician for the following activities: examination of the patient, ordering and/or performing treatment, reviewing the laboratory and radiographic studies, and if applicable, ventilator management and blood gas interpretation. Critical Care was necessary because of an illness or injury that actively impaired one or more vital organ systems such that there was a high probability of imminent life treatening deterioration in the patient's condition. The following organ systems are involved: Neurologic, Respiratory Level of Medical Decision Making: risk of morbidity from additional diagnostic testing or treatment [x]High []Moderate Complexity: Acute or chronic illness posing a threat to life (HIGH) Risk: Requires close neuro-critical care monitoring due to risk of neurological deterioration (HIGH) Personally Reviewed/Independently interpreted patient's: [x]Epic notes [x]Radiology studies [x]Labs []EKG []Orderi (more content not included)...[facility] [id number] History and physical note* Marsha Skinner MD - 04/23/2025 1:01 AM EDT Images from the original note were not included. [facility] Trauma H&P 04/23/2025 2:33 AM Trauma Attending: Dr. Gonzalez Level of Initial Activation: Direct Admit Upgraded: No To:N/A Mechanism of Injury: Fall of uncertain etiology, from standing height Mechanism of Arrival:Transfer from [facility] Chief Complaint: History of Traumatic Injury: 85 y.o. female status post fall from standing height the incident happened around afternoon on 04/22. The patient was walking through her living room after folding some laundry and fell to the ground striking her right knee and left chest. She is unable to identify the cause of her fall however she does report that she was feeling somewhat dizzy and had a headache throughout the day preceding the fall. She denies any loss of consciousness. Her pain is currently 8/10. She is on Xarelto for A-fib. Patient initially presented to [facility] and was found to have a subduralhematoma 6 mm. She was given PCC prior to transfer for direct admission to T2 ICU. Did the Patient have LOC?No C-collar in place on arrival? No Was the patient on an antiplatelet or anticoagulant medication? Yes If yes, which one? Xarelto, status post PCC at [facility] COVID-19 Risk Screening Tool: Has patient previously been tested for COVID-19? Yes Is the patient coming from a nursing facility or congregate care facility? No Has the patient been in close contact with a COVID-19 positive patient? No Has the patient recently experienced any of the following: fever, cough, jemydtdpt-[id number], myalgias, loss of taste/smell, diarreha/GI symptoms? No If any of the screen questions are answered 'yes,' consider ordering a COVID test Medical History[1] Surgical History[2] Family History[3] Social History Socioeconomic History Marital status: Spouse name: Not on file Number of children: Not on file Years of education: Not on file Highest education level: Not on file Occupational History Not on file Tobacco Use Smoking status: Former Current packs/day: 0.00 Average packs/day: 1 pack/day for 17.0 years (17.0 ttl pk-yrs) Types: Cigarettes Start date: 05/29/1959 Quit date: 05/29/1976 Years since quittin.9 Smokeless tobacco: Never Vaping Use Vaping status: Never Used Substance and Sexual Activity Alcohol use: No Drug use: No Sexual activity: Not on file Other Topics Concern Not on file Social History Narrative Not on file Social Drivers of Health Financial Resource Strain: Not on file Food Insecurity: Not on file Transportation Needs: No Transportation Needs (04/23/2025) PRAPARE - Transportation Lack of Transportation (Medical): No Lack of Transportation (Non-Medical): No Physical Activity: Not on file Stress: Not on file Social Connections: Not on file Intimate Partner Violence: Not At Risk (04/23/2025) Humiliation, Afraid, Rape, and Kick questionnaire Fear of Current or Ex-Partner: No Emotionally Abused: No Physically Abused: No Sexually Abused: No Housing Stability: Low Risk (04/23/2025) Housing Stability Vital Sign Unable to Pay for Housing in the Last Year: No Number of Times Moved in the Last Year: 1 Homeless in the Last Year: No Medications Ordered Prior to Encounter[4] Current Medications[5] Who is healthcare POA or next of kin? Son, aNthaniel Does the patient have a DNR? No Living Will? No Allergies[6] PRIMARY SURVEY: AIRWAY: Airway Normal EMS Airway Absent Noisy respirations Absent Vomiting/bleeding: Absent BREATHING: Spontaneous Respirations: Present Midaxillary breath sound left: Present Midaxillary breath sound right: Present CIRCULATION: Left Femoral pulse rate: Normal Left Femoral pulse intensity: Present Right Femoral pulse rate: Normal Right Femoral pulse intensity: Present INITIAL VITALS: Patient Vitals for the past 24 hrs: BP Temp Temp src Pulse Resp SpO2 04/23/25 0000 152/89 36.7 C (98.1 F) Temporal 70 15 95 % FAST EXAM: Performed: No Results: N/A DISABILITY: GCS Initial Eye Verbal Motor 4 - Opens eyes on own 5 - Alert and oriented 6 - Follows simple motor commands Neuromuscular blockade: No Pupil size: Left 3mm Right 3mm Pupil reaction: Yes Wiggles fingers: Left Yes Right Yes Wiggles toes: Left Yes Right Yes Hand grasp: Left Normal Right Normal Plantar flexion: Left Normal Right Normal Secondary Survey: SECONDARY VITALS: See above Review of Systems Constitutional: Negative for chills and fever. Eyes: Negative for photophobia and visual disturbance. Respiratory: Negative for chest tightness and shortness of breath. Cardiovascular: Negative for chest pain and palpitations. Gastrointestinal: Negative for abdominal pain. Neurological: Positive for dizziness and headaches. Negative for syncope, speech difficulty, light-headedness and numbness. Physical Exam Vitals and nursing note reviewed. Constitutional: General: She is not in acute distress. Appearance: Normal appearance. She is not diaphoretic. HENT: Head: Normocephalic. Right Ear: External ear normal. Left Ear: External ear normal. Ears: Comments: Grossly atraumatic Nose: Nose normal. No rhinorrhea. Comments: No nasal septal hematoma Mouth/Throat: Comments: No signs of trauma to the oropharynx No malocclusion Eyes: General: No scleral icterus. Right eye: No discharge. Left eye: No discharge. Neck: Comments: C-spine non-tender, no palpable step-offs Trachea Midline Cardiovascular: Rate and Rhythm: Normal rate and regular rhythm. Pulses: Normal pulses. Comments: Left chest wall tenderness Pulmonary: Effort: Pulmonary effort is normal. No respiratory distress. Breath sounds: No stridor. Comments: Chest wall stable but TTP over left anterior inferior chest extending laterally Chest: Chest wall: No tenderness. Abdominal: General: There is no distension. Palpations: Abdomen is soft. Tenderness: There is no abdominal tenderness. There is no guarding or rebound. Genitourinary: Comments: Positive gluteal squeeze. Musculoskeletal: General: Normal range of motion. Comments: Right knee swelling with ecchymosis. Left wrist with bony TTP. Left shoulder motion limited by pain. No visible deformity, motor and sensory intact throughout. Pelvis is stable to AP and lateral compression. T-Spine non-tender, no palpable step offs L-Spine non-tender, no palpable step offs Skin: General: Skin is warm and dry. Neurological: General: No focal deficit present. Mental Status: She is alert and oriented to person, place, and time. Sensory: No sensory deficit. Psychiatric: Mood and Affect: Mood normal. Behavior: Behavior normal. CBC: No results found for: "WBC", "RBC", "HGB", "HCT", "MCV", "MCH", "MCHC", "RDW", "PLT", "MPV" BMP: No results found for: "NA", "K", "CL", "CO2", "BUN", "CREATININE", "CALCIUM", "LABGLOM", "GLUCOSE", "GLU" Urine Toxicology: No components found for: "IAMMENTA", "IBARBIT", "IBENZO", "ICOCAINE", "IMARTHC", "IOPIATES", "IPHENCYC" IV Access: pivs NG/OG: No Llanos: No Radiology: Images in PACS, reads from Romulo in media tab as follows: CT head demonstrates 6mm SDH of left frontal and interhemispheric region without mass effect CT C-spine without acute injury CT chest: "multiple bilateral nondisplaced cortical buckle fracture deformities, some of which may be acute. Correlate with point area tenderness. Chronic appearing compression fractures of T8, L1 and L2 with kyphoplasty bone cement at L2 no significant retropulsion." XR left wrist-probable nondisplaced fracture of the left scaphoid waist, no dislocation XR right knee no acute fracture or dislocation, prominent prepatellar soft tissue swelling XR left shoulder-no acute fracture or dislocation ASSESSMENT: 85-year-old female status post fall of uncertain etiology from standing height on Xarelto. Presented to [facility] found to have left frontal and interhemispheric subdural hematoma measuring 6 mm without mass effect, as well as concern for acute left rib fractures on personal review of imaging and by comparison with exam most concerning for left 3rd through 7th rib fractures as well as a left scaphoid fx. Problem List[7] PLAN: Neuro / Spine - Neurosurgery consulted, recommend the following: - Repeat CT head in AM - Seizure ppx: None indicated - SBP less than 160 - Elevate head of bed 30 degrees - Neurochecks every hour per protocol - Pain control: Tylenol, gabapentin, as needed oxy, as needed Dilaudid - Palliative consult - Geriatrics consult Cardiovascular - Hemodynamically stable - BP Goal <160 SBP - Telemetry - orthostatic Bps - EKG Pulmonary # Acute left 3rd through 7th rib fractures - Multimodal pain control as above - Daily chest x-rays - Aggressive pulm toilet with incentive spirometry and AccuPAP - Defer acute pain consult for Xarelto washout ( PCC) #COPD - DuoNebs - standard O2 protocol; patient on as needed oxygen at home, O2 goal SpO2 greater than 88% FEN/GI - NPO with NS 125cc/H - Zofran PRN - TELEPHONE CLERK TELEGRAPH OFFICE consulted - Daily BMP, CBC - No acute issues - Monitor I/Os - Goal UOP > 0.5 ml/kg/hr Endocrine - No acute issues Heme - Hgb stable - No transfusions indicated ID - No acute issues - No antibiotics indicated Musculoskeletal: #left scaphoid fx - ortho consult, appreciate recs Lines/Devices: - PIV Prophylaxis: DVT: SCDs, no chemoppx Has DVT PPX been started? Yes If no, why? Patient with Acute Head Bleed GI: Pepcid 20mg bid Pressure Ulcer: Continue to monitor, q2 turns Musculoskeletal: - PT/OT - Bedrest Disposition: T2 for neurochecks Neurosurgery Dr Ramos was notified at 132a and responded at same time. He evaluated imaging anddiscussed plan as listed above Orthopedics resident was notified at 206am and responded at same time. He evaluated imaging and thefollowing plan was discussed: to be evaluated by resident team Can DVT PPX be started? No If no, why? Patient with Acute Head Bleed If DVT PPX can be started, has order been placed? No Consultants:see above When Reached: FRAIL SCALE for Patients Greater than Age 65 - All others choose N/A: F:Fatigue - Does the patient fatigue or get exhausted easily? No R:Resistance - Does the patient have trouble walking up one flight of stairs independently? No A:Ambulation - Does the patient have trouble walking one block (1/4 Mile)? Yes I:Illnesses - Does the patient have five or more illnesses (comorbidities)? Yes L:Loss of weight - Has the patient lost weight (5 to 10 percent) over the last 6 months to one year? No Greater than 2 "Yes" answers consider palliative consult. [1] Past Medical History: Diagnosis Date Arthritis Atrial fibrillation (HCC) Chronic obstructive pulmonary disease (HCC) 08/24/2017 Chronic pain Congestive heart failure (CHF) (HCC) GERD (gastroesophageal reflux disease) Hypertension Osteoarthritis Pain management Psoriasis [2] Past Surgical History: Procedure Laterality Date ABDOMINAL SURGERY bladder bowel all dropped APPENDECTOMY BACK SURGERY BLADDER SUSPENSION BRONCHOSCOPY (HISTORICAL) 06/28/2017 Bronch ENB CHOLECYSTECTOMY COLONOSCOPY FINGER SURGERY HERNIA REPAIR 1959' umbilical SHOULDER SURGERY Right SPINE SURGERY 1985 TOTAL ABDOMINAL HYSTERECTOMY UPPER GASTROINTESTINAL ENDOSCOPY [3] Family History Adopted: Yes Problem Relation Name Age of Onset Chronic bronchitis Mother Emphysema Mother [4] No current facility-administered medications on file prior to encounter. Current Outpatient Medications on File Prior to Encounter Medication Sig Dispense Refill albuterol 108 (90 Base) MCG/ACT inhaler USE 2 INHALATIONS BY MOUTH 4 TIMES DAILY IF NEEDED 34 g 2 atenolol (Tenormin) 25 MG tablet baclofen (Lioresal) 10 MG tablet Take 5 mg by mouth 3 times daily. buprenorphine (Butrans) 5 MCG/HR Place 1 patch on the skin 1 (one) time per week. empagliflozin (Jardiance) 10 MG Take 10 mg by mouth daily. famotidine (Pepcid) 20 MG tablet Take 20 mg by mouth in the morning. ipratropium (Atrovent) 0.02 % nebulizer solution Take 2.5 mL (0.5 mg) by nebulization every 6 hoursas needed for wheezing or shortness of breath. 75 mL 11 oxyCODONE-acetaminophen (Percocet) 5-325 MG tablet Take 1 tablet by mouth every 6 hours as needed for severe pain (7-10). rivaroxaban (Xarelto) 20 MG tablet Take 20 mg by mouth with evening meal. Take with food. budesonide-formoterol (Symbicort) 160-4.5 MCG/ACT inhaler Inhale 2 puffs in the morning and 2 puffsin the evening. Rinse mouth with water after use to reduce aftertaste and incidence of candidiasis.Do not swallow.. 3 each 3 budesonide-formoterol (Symbicort) 80-4.5 MCG/ACT inhaler Inhale 2 puffs 2 times daily. (Patient nottaking: Reported on 04/23/2025) cholecalciferol (Vitamin D-3) 50 MCG (2000 UT) capsule Take 2,000 Units by mouth daily. (Patient not taking: Reported on 04/23/2025) insulin pen needle (BabyBusace Pen [place]) 31G X 8 MM [facility] Use as instructed (Patient not taking: Reported on 04/23/2025) 100 each 3 levalbuterol (Xopenex) 0.63 MG/3ML nebulizer solution Take 1 ampule by nebulization as needed for wheezing or shortness of breath. 72 mL 5 Risankizumab-rzaa (SKYRIZI SC) Inject under the skin. teriparatide (Forteo) injection Inject 0.08 mL (20 mcg) under the skin daily. (Patient not taking: Reported on 04/23/2025) 1 each 11 tiotropium (Spiriva) [address] 1 capsule (18 mcg) into inhaler and inhale in the morning. 30 capsule 11 [5] Current Facility-Administered Medications: acetaminophen (Tylenol) tablet 1,000 mg, 1,000 mg, Oral, q8h, Marsha Skinner MD, 1,000 mg at 04/23/25 0222 atenolol (Tenormin) tablet 25 mg, 25 mg, Oral, Daily, Marsha Skinner MD baclofen (Lioresal) tablet 5 mg, 5 mg, Oral, TID, Marsha Skinner MD dextrose 5 % infusion, 100 mL/hr, IntraVENous, PRN, Marsha Skinner MD dextrose 50 % solution 12.5 g, 12.5 g, IntraVENous, PRN, Marsha Skinner MD gabapentin (Neurontin) capsule 100 mg, 100 mg, Oral, TID, Marsha Skinner MD glucagon (human recombinant) injection 1 mg, 1 mg, IntraMUSCular, PRN, Marsha Skinner MD glucose oral gel 15 g, 15 g, Oral, PRN, Marsha Skinner MD HYDROmorphone (Dilaudid) injection 0.25 mg, 0.25 mg, IntraVENous, q3h PRN OR HYDROmorphone (Dilaudid) injection 0.5 mg, 0.5 mg, IntraVENous, q3h PRN, Marsha Skinner MD, 0.5 mg at 04/23/25 0222 Insulin Lispro (Humalog) injection 0-12 Units, 0-12 Units, SubCUTAneous, TID WC AND Insulin Lispro (Humalog) injection 0-12 Units, 0-12 Units, SubCUTAneous, Nightly, Marsha Skinner MD ipratropium-albuterol (Duo-Neb) 0.5-2.5 mg/3 mL nebulizer solution 3 mL, 3 mL, Nebulization, TID, Marsha Skinner MD ipratropium-albuterol (Duo-Neb) 0.5-2.5 mg/3 mL nebulizer solution 3 mL, 3 mL, Nebulization, PRN, Marsha Skinner MD mometasone-formoterol (Dulera 100) 100-5 MCG/ACT inhaler 2 puff, 2 puff, Inhalation, BID, Marsha Skinner MD mupirocin (Bactroban) 2 % ointment 1 Application, 1 Application, Nasal, BID, Marsha Skinner MD naloxone (Narcan) injection 0.4 mg, 0.4 mg, IntraVENous, PRN, Marhsa Skinner MD ondansetron ODT (Zofran-ODT) disintegrating tablet 4 mg, 4 mg, Oral, q8h PRN OR ondansetron (Zofran) injection 4 mg, 4 mg, IntraVENous, q6h PRN, Marsha Skinner MD oxyCODONE (Roxicodone) immediate release tablet 5 mg, 5 mg, Oral, q4h PRN OR oxyCODONE (Roxicodone) immediate release tablet 10 mg, 10 mg, Oral, q4h PRN, Marsha Skinner MD polyethylene glycol (PEG) 3350 (Miralax) packet 17 g, 17 g, Oral, Daily, Marsha Skinner MD sodium chloride 0.9 % infusion, 75 mL/hr, IntraVENous, Continuous, Marsha Skinner MD sodium chloride 0.9% (NS) flush 30 mL, 30 mL, IntraVENous, q6h, Marsha Skinner MD sodium chloride 0.9% (NS) flush 30 mL, 30 mL, IntraVENous, PRN, Marsha Skinner MD sodium chloride 0.9% (NS) flush 30 mL, 30 mL, IntraVENous, PRN, Marsha Skinner MD [6] No Known Allergies [7] Patient Active Problem List Diagnosis Pulmonary fibrosis (HCC) Lung nodule Chronic obstructive pulmonary disease (HCC) CONCEPCION (obstructive sleep apnea) Psoriatic arthritis (HCC) Acute subdural hematoma (HCC) Cosigned by Domonique Gonzalez MD at 04/23/2025 6:28 AM EDT Associated attestation - Domonique Gonzalez MD - 04/23/2025 6:28 AM EDT ATTENDING ADDENDUM I independently saw the above patient and reviewed the recent events, imaging, labs, vital signs; Iperformed a physical exam and ROS. My findings agree with the above note except for any details corrected below. Problem List[1] A complete review of systems was obtained and is negative except as stated in HPI. HPI: 85 y.o. female status post fall from standing height the incident happened around afternoon on 04/22.The patient was walking through her living room after folding some laundry and fell to the ground striking her right knee and left chest. She is unable to identify the cause of her fall however she does report that she was feeling somewhat dizzy and had a headache throughout the day preceding the fall. She denies any loss of consciousness. Her pain is currently 8/10. She is on Xarelto for A-fib. Patient initially presented to [facility] and was found to have a subdural hematoma 6 mm. She was givenPCC prior to transfer for direct admission to T2 ICU. Imaging reviewed and independently interpreted: CT chest reviewed -multiple acute/chronic rib fractures --> suspect acute 3 through 7 rib fractures anterior on the L CTH - left frontal and interhemispheric subdural hematoma measuring 6 mm without mass effect Problem list: Acute, acute on chronic, unstable or uncontrolled chronic problems/diagnoses: Acute traumatic left frontal and anterior hemispheric subdural hematoma 6mm, no mass effect Acute traumatic left 3 through 7 rib fractures Nondisplaced fracture of the left scaphoid waist Acute traumatic pain Right knee hematoma ?Pre-syncopal fall Incidental - Chronic compression fractures of T8, L1 and L2 Stable chronic problems, affecting patient care: Medical History[2] 24h: TTP L chest wall Complains of left shoulder pain Geriatric and palliative consultation Patient will need medication reconciliation Plan: Neurological system #Acute traumatic left frontal and anterior hemispheric subdural hematoma 6mm, no mass effect - Patient received PCC at the OSH for Xarelto - No seizure prophylaxis at this time - Repeat CT in the morning - Elevate head of bed 30 degrees # Chronic pain - Home amitriptyline - home buprenorphine patch - Home baclofen #Acute pain - Multimodal pain control # At risk for delirium/acute encephalopathy - Delirium precautions: increase activity, limit nighttime disturbances, and avoid anticholinergic meds, benzos, etc Circulatory system # Atrial fibrillation, hypertension, HFpEF - 02/11/21 echo EF 68% - Hold Xarelto - atenolol 25 mg - Hold home Xarelto - restart Home Jardiance 10 mg - Repeat echo - SBP 110-160 - PRN anti-htn med - HOLD home Lasix 20 mg as needed edema Respiratory system # COPD # Acute traumatic left 3 through 7 rib fractures - Home Symbicort -> substitute Dulera - O2 protocol - Aggressive pulmonary hygiene Gastrointestinal system # GERD -Home Pepcid - Bowel regimen Renal function - Strict I/Os Immunologic system [x] Mupirocin for empiric MRSA decolonization x5 days - Monitor for fevers Hematologic system - Monitor hemoglobin Endocrine system - Monitor glucose Integumentary system (GI and cutaneous) - Skin checks # Right knee hematoma - CTM Musculoskeletal system - PTOT #Nondisplaced fracture of the left scaphoid waist - Orthopedic consultation - Nonweightbearing left upper extremity Ppx - DVT prophylaxis: SCDs - GI prophylaxis: []PPI, [x]Pepcid MEDS: Scheduled PRN Scheduled Meds[3] PRN Meds[4] Continuous Continuous Meds[5] Patient evaluated on 04/23/2025 Critical Care time spent 48 min. The time involved in the performance of this care was exclusive ofseparately billable procedures, teaching time and treating other patients. The time was spent personally by the attending physician for the following activities: examination of the patient, ordering and/or performing treatment, reviewing the laboratory and radiographic studies, and if applicable, ventilator management and blood gas interpretation. Critical Care was necessary because of an illness or injury that actively impaired one or more vital organ systems such that there was a high probability of imminent life treatening deterioration in the patient's condition. The following organ systems are involved: Neurologic, Respiratory Level of Medical Decision Making: risk of morbidity from additional diagnostic testing or treatment [x]High []Moderate Complexity: Acute or chronic illness posing a threat to life (HIGH) Risk: Requires close neuro-critical care monitoring due to risk of neurological deterioration (HIGH) Personally Reviewed/Independently interpreted patient's: [x]Epic notes [x]Radiology studies [x]Labs []EKG []Ordering tests []Other Discussed/ With: [x]Patient/Family [x]RN [x]Consultants []SW/TCC []Other Domonique Gonzalez MD Division of Trauma Department of Surgery [facility] ~~~~~~~~~~~~~~~~~~~~~~~~~~~~~~~~~~~~~~~~~~~~~~~~~~~~~~~~~~~~~~~~~~~~~~~ This note may have been dictated using [employer] Practice Edition 2.6 and/or [employer] Voice Recognition Feature. The document was proofread; however, unrecognized voice recognition ichthyologist errors may be present. [1] Patient Active Problem List Diagnosis Pulmonary fibrosis (HCC) Lung nodule Chronic obstructive pulmonary disease (HCC) CONCEPCION (obstructive sleep apnea) Psoriatic arthritis (HCC) Acute subdural hematoma (HCC) [2] Past Medical History: Diagnosis Date Arthritis Atrial fibrillation (HCC) Chronic obstructive pulmonary disease (HCC) 08/24/2017 Chronic pain Congestive heart failure (CHF) (HCC) GERD (gastroesophageal reflux disease) Hypertension Osteoarthritis Pain management Psoriasis [3] acetaminophen, 1,000 mg, Oral, q8h atenolol, 25 mg, Oral, Daily baclofen, 5 mg, Oral, TID gabapentin, 100 mg, Oral, TID insulin lispro, 0-12 Units, SubCUTAneous, TID WC And insulin lispro, 0-12 Units, SubCUTAneous, Nightly ipratropium-albuterol, 3 mL, Nebulization, TID mometasone-formoterol, 2 puff, Inhalation, BID mupirocin, 1 Application, Nasal, BID polyethylene glycol (PEG) 3350, 17 g, Oral, Daily sodium chloride 0.9%, 30 mL, IntraVENous, q6h [4] PRN medications: dextrose, dextrose, glucagon (rDNA), glucose, HYDROmorphone OR HYDROmorphone, ipratropium-albuterol, naloxone, ondansetron ODT OR ondansetron, oxyCODONE OR oxyCODONE,sodium chloride 0.9%, sodium chloride 0.9% [5] sodium chloride, 75 mL/hr, Last Rate: 75 mL/hr (04/23/25 0300) documented in this [facility]09-02-2025 Discharge summary [facility] Medical Records Department [address] [place] [address] Emergency Department Summary 04/22/25 MR#: [id number] Acct: [id number] Name: CONNIELESLI Jose Alberto Rep #:[id number] : 1940 85 From: Brisa Ballard PCP: Dr. Marty Guthrie MD Status:REG E R Location: ED HPI History of Present Illness Chief Complaint: Fall Informant: patient Narrative Narrative: Patient is an 85-year-old female with history of COPD, psoriatic arthritis, atrial fibrillation (onXarelto), hypertension and CHF as well as chronic pain and compression fractures presenting for evaluation after fall. Patient states she has been feeling dizzy all day long. She tried it more as spinning sensation. Was going out of her bedroom to the living room when she fell. She is not exactly sure why she fell or how she fell. She does not think she lost consciousness but she is not entirely clear on this. She states she think she landed on her left side mostly on her left shoulder. She is complaining of significant left shoulder pain. Her son helped her up and she thinks that he might have broken a rib when he was helping her out that she heard a crack on her left side. She also has injuries to her right knee and her left thumb. She did sustain a skin tear as well to her right hand. She is having significant pain at this time. She notes that she does follow with Dr. Hall for pain management and takes oxycodone as well as buprenorphine patches. She does clean her back pain but states it feels like her regular chronic back pain [facility] Medical History Low bone density Arthritis of left hip Compression fracture of L3 vertebra Osteopenia determined by x-ray Burst fracture of lumbar vertebra Compression fracture of L2 Abnormal finding on urinalysis Intractable back pain Leukocytosis Acute cystitis with hematuria Overweight (BMI 25.0-29.9) Chronic anticoagulation Paroxysmal atrial fibrillation Ambulatory dysfunction Generalized weakness Unable to care for self Inability to perform activities of daily living Closed compression fracture of lumbosacral spine Back pain Anxiety Depression Chronic pain GERD (gastroesophageal reflux disease) On home oxygen therapy Atrial fibrillation Congestive heart failure (CHF) Hypertension Shingles Psoriatic arthritis COPD (chronic obstructive pulmonary disease) A-fib Home Medications ?Medication ?Instructions ?Recorded ?Last Taken ?Type atenolol 25 mg tablet 25 mg PO DAILY Atrial fibril lation 06/26/21 12/30/24 History famotidine 20 mg tablet 20 mg PO DAILY 06/26/2102/12 History folic acid 1 mg tablet 1 mg PO DAILY supplement 02/0812/24/24 History rivaroxaban 20 mg tablet (Xarelto) 20 mg PO DAILY 02/0812/24/24 History cholecalciferol (vitamin D3) 50 50 mcg PO DAILY 12/24/24 History mcg (2,000 unit) capsule albuterol sulfate 90 mcg/actuation 2 puff inhalation Q 6H PRN dyspnea 11/18/24 Unknown History aerosol inhaler tiotropium bromide 18 mcg capsule 1 cap inhalation RUTH LY PRN 11/18/24 12/24/24 History with inhalation device (Spiriva shortness of breath with HandiHaler) risankizumab-rzaa 150 mg/mL 150 mg subcut Q90D 5 12/18/24 History subcutaneous pen injector (Andria) lidocaine 5 % topical patch 2 patch topical DAILY #60 ea 01/01/25 Unknown Rx oxycodone 5 mg tablet 5 mg PO Q6H PRN PRN Pain Sco re 4-5 01/01/25 Unknown Rx Or Pre Pt/Ot 7 days #35 tabs baclofen 10 mg tablet 5 mg PO BID 04/22/25 Unknown History baclofen 5 mg tablet 5 mg PO DAILY 04/22/25 Unkno wn History oxycodone-acetaminophen 5 mg-325 1 tab PO TID 04/22/25 Unknown History mg tablet Allergy/AdvReac Type Severity Reaction Status Date / Time No Known Allergies Allergy Verified 04/22/25 18:40 Family History no significant family his Surgical History Status post kyphoplasty History of partial hysterectomy History of bladder suspension procedure History of appendectomy History of cholecystectomy H/O hernia repair Social History household members: none Smoking Status: Former smoker substance use type: does not use ROS ROS ED Constitutional Constitutional ED: Denies chills or fever(s) Eyes Eyes: Denies change in vision Cardiovascular Cardiovascular: Denies chest pain Respiratory/Chest Respiratory/Chest: Denies cough or dyspnea Gastrointestinal Gastrointestinal: Denies abdominal pain, nausea or vomiting Musculoskeletal Musculoskeletal: Reports arthralgias, back pain and neck pain Integumentary Reports Abrasions; Denies rash Neurologic Neurologic: Reports headache(s); Denies paresthesias or weakness Hematologic/Lymphatic Hematologic/Lymphatic: Reports easy bleeding, easy bruising and other Details: On Xarelto EXAM Physical Exam Const Vital Signs: 04/22/25 18:40 04/22/25 19:18 04/22/25 19:40 Temperature 96.9 F L Temperature Source Temporal Pulse Rate 79 71 Respiratory Rate 14 17 Respiratory Effort Short of Breath Respiratory Depth Normal Respiratory Pattern Normal Blood Pressure 152/77 H 140/91 H Blood Pressure Mean 102 107 Pulse Ox 98 97 Oxygen Delivery Method Room Air Nasal Cannula Nasal Cannula Oxygen Flow Rate (L/min) 2 2 04/22/25 20:00 04/22/25 21:00 04/22/25 22:00 Temperature Temperature Source Pulse Rate 67 75 73 Respiratory Rate 19 H 18 18 Respiratory Effort Respiratory Depth Respiratory Pattern Blood Pressure 151/78 H 137/74 H 146/88 H Blood Pressure Mean 102 95 107 Pulse Ox 94 95 96 Oxygen Delivery Method Nasal Cannula Nasal Cannula Nasal Cannula Oxygen Flow Rate (L/min) 2 2 2 Positive well nourished and well developed Constitutional Narrative: Patient is uncomfortable appearing General Appearance ED: well developed HEENT Reports TM's clear and moist mucous membranes HEENT Narrative: No signs of basilar skull fracture. Hematoma to the right cheek/lateral periorbital area. trauma Tympanic Membrane ED: Yes TM's clear Eyes PERRL and EOMs intact bilaterally Eyes Narrative: Subtle subconjunctival hemorrhage present on the right eye at approximately the 6 o'clock position near the edge of the iris Neck supple Neck Narrative: Diffuse tenderness but no pinpoint bony tenderness. No step-off sign present. General: tenderness Chest Wall inspection of chest normal Chest Narrative: No chest wall crepitus. Tense palpation of the left lower ribs Resp normal respiratory effort and clear to auscultation bilaterally Cardio regular rhythm Rhythm: abnormal rhythm irregularly irregular GI normal to inspection, nondistended, normoactive bowel sounds Back/Spine Back/Spine Narrative: Mild to palpation of the lumbar spine however patient states this is her chronicpain and none of that is new. No thoracic tenderness to palpation of the spinous process. Thoracic Spine / Upper Back: Negative for thoracic spinal tenderness Extremity Extremity Narrative: No obvious deformity of the extremities. Pain with palpation and general range of motion of the left shoulder. No tenderness across the clavicle on the left. No bony deformity or tenderness of the bilateral elbows or hands. There is ecchymosis of the left thumb with tenderness over the proximal phalanx. No deformity present. Normal range of motion. Normal flexion extension. Pelvis is stable. There is bruising with overlying skin tear and associated edema to the right knee. Range of motion is preserved. Diffuse tenderness present. Neuro oriented x3, CN's II-XII intact bilaterally and no sensory deficits noted Sensorium / Orientation: alert Motor Exam: strength 5/5 throughout and general weakness Psych mental status grossly normal Skin Skin Narrative: Small skin tear to the right hand as well as the right anterior knee. Scatteredecchymosis from her recent fall present. MDM MDM MDM Narrative Medical decision making narrative: Patient evaluated for injuries after fall. It is not clear if is mechanical fall or syncopal related. Patient does not recall. She is obvious signs of trauma on physical exam including bruising around her face, pain and bruising toher left wrist, bruising pain and swelling to her right knee and significant pain to her left ribs and also left shoulder pain. Differential includes arrhythmia, symptomatic anemia, mechanical fall, intracranial hemorrhage, skull fracture, cervical spine fracture, rib fracture, pulmonary contusion, pneumothorax, infection, wrist fracture, phalanx fracture, shoulder fracture, dislocation, tibial plateau fracture and patellarfracture aswell as knee contusion. Patient is given Dilaudid for pain control emergency room especially as she is on chronic pain medication. CBC and BMP largely normal. Urinalysis normal not consistent with infection. EKG shows atrial fibrillation which is chronic for the patient. CT of the brain shows a subdural hemorrhage 6 mm in thickness with no mass effect. CT of the neck does not show any acute traumatic injury. CT of the chest shows multiple bilateral rib nondisplaced cortical buckle fractures some which may be acute. There are 2 need to characterize per my discussionwith radiology to individually thing the ribs. There are chronic appearing compression fractures ofT8, L1 and L2 with kyphoplasty at L2 and no significantretropulsion. No other acute process. Left hand x-ray shows probable nondisplaced fracture of the left scaphoid waist. No dislocation. Patient placed in a thumb spica splint for this. She does have corresponding tenderness and bruising. Knee x-ray reviewed by myself as well as radiology does not show any acute fracture or dislocation does show soft tissue swelling. Patient given Kcentra for reversal given life-threatening hemorrhage of the brain on Xarelto. Spoke with transfer center at [facility] (patient's hospital request) and with Dr. Gonzalez. She accepts the patient to the trauma service. Will be adirect admit. Transportation pending. I did notify the patient's granddaughter, Anna as well as her son Julio Cesar. His phone number is [phone]. At this time patient is GCS of 15, is protecting her airway and remains hemodynamically stable. Will continue to monitor closely Lab Data Attestation: I reviewed the patient's lab results. Labs: Laboratory Results - last 24 hr 04/22/25 04/22/25 20:25 21:43 WBC 10.3 RBC 4.57 Hgb 15.1 H Hct 46.9 MCV 102.6 H MCH 33.0 H MCHC 32.2 RDW Std Deviation 53.5 H RDW Coeff of Mildred 13.9 Plt Count 187 MPV 10.4 Immature Gran % (Auto) 0.800 Neut % (Auto) 77.3 H Lymph % (Auto) 13.5 L Sauk % (Auto) 7.5 Eos % (Auto) 0.4 Baso % (Auto) 0.5 Absolute Neuts (auto) 8.0 H Absolute Lymphs (auto) 1.39 Nucleated RBC % 0 Sodium 141 Potassium 3.8 Chloride 105 Carbon Dioxide 27.3 Anion Gap 9 BUN 19 Creatinine 0.50 L Estim Creat Clear Calc 44.08 L Est GFR (MDRD) Non-Af 93 BUN/Creatinine Ratio 37.1 H Glucose 101 H Calcium 9.3 Urine Color Yellow Urine Clarity Clear Urine pH 5.0 Ur Specific Laurel 1.025 Urine Protein 15 H Urine Glucose (UA) 1000 H Urine Ketones 5 H Urine Occult Blood 10 H Urine Nitrite Negative Urine Bilirubin Negative Urine Urobilinogen Normal Ur Leukocyte Esterase Negative Urine RBC 0-5 SEEN Urine WBC 0-5 SEEN Ur Squamous Epith Cells 0-5 SEEN Urine Bacteria 0 SEEN Urine Mucus RARE Radiography Diagnostic Testing: Clinical Impression(s) from Imaging Studies Shoulder X-Ray 04/22/25 18:50 IMPRESSION: No acute fracture or dislocations. Mild to moderate degenerative changes of theleft shoulder. No acute soft tissue abnormalities. No radiographic foreign body. Reading Location: [facility] Knee X-Ray 09/02/25 20:02 IMPRESSION: No acute fracture or dislocation. Prominent prepatellar soft tissue swelling. Reading Location: [id number] Brain CT 04/22/25 20:40 IMPRESSION: There is subdural blood along the interhemispheric fissure and there is a small amount of subdural blood along the right frontal convexity without mass effect. That measures 6 mm. Reading Location: [id number] Cervical Spine CT 04/22/25 20:40 IMPRESSION: Negative for cervical spine fracture Reading Location: [id number] Chest CT 04/22/25 20:40 IMPRESSION: 1. Multiple bilateral nondisplaced cortical buckle fracture deformities, some ofwhich may be acute.Correlate with point area tenderness. 2. Chronic appearing compression fractures of T8, L1 and L2, with kyphoplasty bone cement at L2, and no significant retropulsion. 3. No pneumothorax. Cardiomegaly with interstitial edema and trace basilar pleural effusions. Reading Location: [id number] Hand X-Ray 04/22/25 20:45 IMPRESSION: Probable nondisplaced fracture of the left scaphoid waist. No dislocation. Reading Location: [facility] Rhythm Strip Rhythm Strip: A-fib Rate: 73 Ectopy: None EKG Initial EKG: Attestation: I personally reviewed and interpreted this EKG as follows: Interpretation: Atrial Fibrillation Comments: Atrial fibrillation at a rate of 73 bpm Normal axis Normal QRS Normal QTc Normal ST segment Prior EKG tracings: available for review Prior: Unchanged Management Discussion w/another healthcare provider: Operations Superintendent and Radiologist Critical Care Time Critical Care Time: Yes Critical care time (excluding procedures): 30-74 minutes (45), Discussing w/Patient &/or Family/Cadd Manager, Discussing w/Consultants and Arranging Admission or Transfer Discharge Plan Triage Chief Complaint: Fall ED Provider: Brisa Gamble Dx/Rx/DC Orders Clinical Impression: Subdural hemorrhage, 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, Fracture of scaphoid bone of left wrist, Rib pain on left side, Fall, Contusion of knee, right Prescriptions: No Action atenolol 25 mg tablet 25 mg PO [...] DAILY PRN (Reason: shortness of breath ) oxycodone-acetaminophen 5-325 mg tablet 1 tab PO TID baclofen 10 mg tablet 5 mg PO BID baclofen 5 mg tablet 5 mg PO DAILY Skyrizi 150 mg/mL pen injector 150 mg SUBCUT Q90D Patient Comments: [NO ORIGINAL SIG] lidocaine 5 % Adhesive Patch,Medicated 2 patch [...] every 6 hours as needed for pain Primary Care Provider: Marty Guthrei Referrals: Marty Guthrie MD [Primary Care Provider] - Print Language: Swiss Disposition Disposition: Acute Care [facility] What to do if you have Problems For any increased pain, shortness of breath, bleeding, nausea or vomiting, chestpain, or any unexpected problems, contact your Primary Care Provider. Call [facility] ([phone]) or report tothe closest Emergency Room. Call 911 if necessary. 04/22/252235 Cosigner Signature (if applicable): CC: Dr. Marty Guthrie MD ~ Signed [facility]09-02-2025 Radiology Diagnostic study note [facility] Imaging Services [address] [place] [address] Chest without Contrast MR#: [id number] Acct: [id number] Name: LESLI ROSALES Rep #: [id number] : 1940 F 85 From: Celso Rain MD PCP: Dr. Marty Guthrie MD Status: REG E R Study:Chest without Contrast Date of Exam: 04/22/25 Exam# [id number] Ordering Dr: Perry Gamble DO ADDENDUM by Dr. Fabiano Rain MD on 04/22/25 at 2218 1. Multiple bilateral rib nondisplaced cortical buckle fracture deformities, some of which may be acute. Correlate with point area tenderness. 2. Chronic appearing compression fractures of T8, L1 and L2, with kyphoplasty bone cement at L2, and no significant retropulsion. 3. No pneumothorax. Cardiomegaly with interstitial edema and trace basilar pleural effusions. Reading Location: [id number] 04/22/259 Date cc: Dr. Brisa Gamble DO; Dr. Marty Guthrie MD ~* Signed PROCEDURE: CT CHEST WITHOUT CONTRAST 04/22/2025 REASON FOR EXAM: TRAUMA, LEFT RIB PAIN TECHNIQUE: Chest CT without contrast. Coronal and Sagittal reconstruction series were provided. One or more dose reduction techniques were used (e.g., Automated exposure control, adjustment of the mA and/or kV according to patient size, use of iterative reconstruction technique RADIATION DOSE SUMMARY: DLP: 1666.87 mGycm COMPARISON: Body CT 11/17/2024. FINDINGS: LUNGS/PLEURA: No focal airspace consolidation or pulmonary contusion. Mild bibasilar dependent atelectasis. No pneumothorax. Trace bibasilar pleural effusions. Interstitial pulmonary edema. Calcified granulomas in the right lung, the largest along the right minor fissure measuring 15 mm. MEDIASTINUM: Unremarkable. No hematoma or significant lymphadenopathy. HEART and VASCULATURE: Four-chamber cardiomegaly. No pericardial effusion. Mild- moderate coronary artery calcifications. Prominent ectatic caliber of the central pulmonary arteries. Normal course and caliber of the thoracic aorta, with moderate atherosclerotic disease. UPPER ABDOMEN: No significant abnormality. BONES: Multiple bilateral nondisplaced cortical buckle fracture deformities, some of which may be acute. Chronic appearing compression fracture deformities involving T8 superior endplate, and the visualized L1 and L2 vertebrae, with kyphoplasty bone cement at L2. Associated mild exaggerated thoracic kyphosis. Mild multilevel degenerative changes of the spine elsewhere. Qualitative osteopenia. Partially imaged right shoulder arthroplasty metallic hardware. CT/Chest without Contrast IMPRESSION: 1. Multiple bilateral nondisplaced cortical buckle fracture deformities, some ofwhich may be acute.Correlate with point area tenderness. 2. Chronic appearing compression fractures of T8, L1 and L2, with kyphoplasty bone cement at L2, and no significant retropulsion. 3. No pneumothorax. Cardiomegaly with interstitial edema and trace basilar pleural effusions. Reading Location: [facility] CC: Dr. Brisa Gamble DO; Dr. Marty Guthrie MD ~ Coat Baster: Signed [facility]09-02-2025 Radiology Diagnostic study note [facility] Imaging Services [address] [place] [address] [id number] Knee 4 or More Views MR#: [id number] Acct: [id number] Name: LESLI ROSALES Rep #: [id number] : 1940 F 85 From: Celso Rain MD PCP: Dr. Marty Guthrie MD Status: REG E R Study:Knee 4 or More Views Date of Exam: 04/22/25 Exam# [id number] Ordering Dr: Perry Gamble DO PROCEDURE: RIGHT KNEE 4 OR MORE VIEWS 04/22/2025 REASON FOR EXAM: PAINB, TRUAMA TECHNIQUE: Procedure Code: RADKN Modality: DX Procedure: KNEE 4 OR MORE VIEWS Laterality: Right COMPARISON: None. FINDINGS: No acute fracture or dislocation. Alignment is anatomic. Relatively well preserved joint spaces. Nojoint effusion. Qualitative osteopenia. Mild enthesopathic spurring of the superior patellar pole. Prominent prepatellar soft tissue swelling/contusion. Atherosclerotic vascular calcifications. RAD/Knee 4 or More Views IMPRESSION: No acute fracture or dislocation. Prominent prepatellar soft tissue swelling. Reading Location: [id number] CC: Dr. Brisa Gamble DO; Dr. Marty Guthrie MD ~ Coat Baster: Signed [facility]09-02-2025 Radiology Diagnostic study note [facility] Imaging Services [address] [place] [address] Hand Min 3 Views MR#: [id number] Acct: [id number] Name: LESLI ROSALES Rep #: [id number] : 1940 F 85 From: Celso Rain MD PCP: Dr. Marty Guthrie MD Status: REG E R Study:Hand Min 3 Views Date of Exam: 10/15 Exam# [id number] Ordering Dr: Perry Gamble DO PROCEDURE: LEFT HAND MIN 3 VIEWS 04/22/2025 REASON FOR EXAM: TRAUMA, PAIN TECHNIQUE: Procedure Code: BETTINA Modality: DX Procedure: HAND MIN 3 VIEWS Laterality: Left COMPARISON: None. FINDINGS: There appears to be a subtle nondisplaced fracture of the scaphoid waist. No additional acute fracture or dislocation is seen. Carpal alignment appears maintained. Diffuse qualitative osteopenia. No markedsoft tissue swelling or radiopaque foreign body appreciated. RAD/Hand Min 3 Views IMPRESSION: Probable nondisplaced fracture of the left scaphoid waist. No dislocation. Reading Location: [id number] CC: Dr. Brisa Gamble DO; Dr. Marty Guthrie MD ~ Coat Baster: Signed [facility]09-02-2025 Radiology Diagnostic study note [facility] Imaging Services [address] [place], [place] [id number] Brain/Head without Contrast MR#: [id number] Acct: [id number] Name: LESLI ROSALES Rep #: [id number] : 1940 F 85 From: Kurt Angela MD PCP: Dr. Marty Guthrie MD Status: REG E R Study:Brain/Head without Contrast Date of Exa m: 04/22/25 Exam# [id number] Ordering Dr: Perry Gamble DO PROCEDURE: BRAIN/HEAD WITHOUT CONTRAST 04/22/2025 REASON FOR EXAM: FALL TECHNIQUE: Procedure Code: CTBR Modality: CT Procedure: BRAIN/HEAD WITHOUT CONTRAST Coronal and Sagittal reconstruction series were provided. One or more dose reduction techniques were used (e.g., Automated exposure control, adjustment of the mA and/or kV according to patient size, use of iterative reconstruction technique. RADIATION DOSE SUMMARY: CTDlvol: 44 mGy DLP: 796 mGycm FINDINGS: Normal brainstem. Normal cerebellum. No hydrocephalus. There is subdural blood along the interhemispheric fissure and there is a small amount of subdural blood along the right frontal convexity without mass effect. That measures 6 mm. The bony calvarium appears intact. CT/Brain/Head without Contrast IMPRESSION: There is subdural blood along the interhemispheric fissure and there is a small amount of subdural blood along the right frontal convexity without mass effect. That measures 6 mm. Reading Location: [id number] CC: Dr. Brisa Gamble DO; Dr. Marty Guthrie MD ~ Coat Baster: Signed [facility]09-02-2025 Radiology Diagnostic study note [facility] Imaging Services [address] [place] [address] [id number] Spine Cervical without Contras MR#: [id number] Acct: [id number] Name: LESLI ROSALES Rep #: [id number] : 1940 F 85 From: Kurt Angela MD PCP: Dr. Marty Guthrie MD Status: REG E R Study:Spine Cervical without Contras Date of Exam: 04/22/25 Exam# [id number] Ordering Dr: Perry Gamble DO PROCEDURE: SPINE CERVICAL WITHOUT CONTRAS 04/22/2025 REASON FOR EXAM: FALL TECHNIQUE: Procedure Code: CTSPC Modality: CT Procedure: SPINE CERVICAL WITHOUT CONTRAS Coronal and Sagittal reconstruction series were provided. One or more dose reduction techniques were used (e.g., Automated exposure control, adjustment of the mA and/or kV according to patient size, use of iterative reconstruction technique. RADIATION DOSE SUMMARY: CTDlvol: 45 mGy DLP: 1666 mGycm FINDINGS: Normal cervical alignment. Diffuse disc space narrowing. No compression deformity. Facet arthrosis is present without facet fracture. Degenerative changes are present at C1-C2. Normal odontoid process. No destructive osseous changes. Normal appearance of the pedicles and lamina. No visible soft tissue masses. CT/Spine Cervical without Contras IMPRESSION: Negative for cervical spine fracture Reading Location: [id number] CC: Dr. Brisa Gamble DO; Dr. Marty Guthrie MD ~ Coat Baster: Signed [facility]09-02-2025 Radiology Diagnostic study note [facility] Imaging Services [address] [place] [address] [id number] Shoulder min 2 Views MR#: [id number] Acct: [id number] Name: LESLI ROSALES Rep #: [id number] : 1940 F 85 From: Iveth Pa MD PCP: Dr. Marty Guthrie MD Status: PRE E R Study:Shoulder min 2 Views Date of Exam: 04/22/25 Exam# [id number] Ordering Dr: Perry Gamble DO PROCEDURE: SHOULDER MIN 2 VIEWS 04/22/2025 REASON FOR EXAM: FALL TECHNIQUE: Procedure Code: RADSH Modality: DX Procedure: SHOULDER MIN 2 VIEWS Laterality: COMPARISON: none RAD/Shoulder min 2 Views IMPRESSION: No acute fracture or dislocations. Mild to moderate degenerative changes of theleft shoulder. No acute soft tissue abnormalities. No radiographic foreign body. Reading Location: [facility] CC: Dr. Brisa Gamble DO; Dr. Marty Guthrie MD ~ Coat Baster: Signed [facility]09-02-2025 Discharge summary Author Brisa Gmable [facility] Note Date/Time April 22, 2025 10:36pm [facility] Medical Records Department [address] [place] [address] Emergency Department Summary 04/22/25 MR#: [id number] Acct: [id number] Name: LESLI ROSALES Rep #:[id number] : 1940 85 From: Brisa Ballard PCP: Dr. Marty Guthrie MD Status:REG E R Location: ED HPI History of Present Illness Chief Complaint: Fall Informant: patient Narrative Narrative: Patient is an 85-year-old female with history of COPD, psoriatic arthritis, atrial fibrillation (on Xarelto), hypertension and CHF as well as chronic pain and compression fractures presenting for evaluation after fall. Patient states she has been feeling dizzy all day long. She tried it more as spinning sensation. Was going out of her bedroom to the living room when she fell. She is not exactly sure why she fell or how she fell. She does not think she lost consciousness but she is not entirely clear on this. She states she think she landed on her left side mostly on her left shoulder. She is complaining of significant left shoulder pain. Her son helped her up and she thinks that he might have broken a rib when he was helping her out that she heard a crack on her left side. She also has injuries to her right knee and her left thumb. She did sustain a skin tear as well to her right hand. She is having significant pain at this time. She notes that she does follow with Dr. Hall for pain management and takes oxycodone as well as buprenorphine patches. She does clean her back pain but states it feels like her regular chronic back pain [facility] Medical History Low bone density Arthritis of left hip Compression fracture of L3 vertebra Osteopenia determined by x-ray Burst fracture of lumbar vertebra Compression fracture of L2 Abnormal finding on urinalysis Intractable back pain Leukocytosis Acute cystitis with hematuria Overweight (BMI 25.0-29.9) Chronic anticoagulation Paroxysmal atrial fibrillation Ambulatory dysfunction Generalized weakness Unable to care for self Inability to perform activities of daily living Closed compression fracture of lumbosacral spine Back pain Anxiety Depression Chronic pain GERD (gastroesophageal reflux disease) On home oxygen therapy Atrial fibrillation Congestive heart failure (CHF) Hypertension Shingles Psoriatic arthritis COPD (chronic obstructive pulmonary disease) A-fib Home Medications ?Medication ?Instructions ?Recorded ?Last Taken ?Type atenolol 25 mg tablet 25 mg PO DAILY Atrial fibril lation 06/26/21 12/30/24 History famotidine 20 mg tablet 20 mg PO DAILY 06/26/2102/12 History folic acid 1 mg tablet 1 mg PO DAILY supplement 02/0812/24/24 History rivaroxaban 20 mg tablet (Xarelto) 20 mg PO DAILY 02/0812/24/24 History cholecalciferol (vitamin D3) 50 50 mcg PO DAILY 12/24/24 History mcg (2,000 unit) capsule albuterol sulfate 90 mcg/actuation 2 puff inhalation Q 6H PRN dyspnea 11/18/24 Unknown History aerosol inhaler tiotropium bromide 18 mcg capsule 1 cap inhalation RUTH LY PRN 11/18/24 12/24/24 History with inhalation device (Spiriva shortness of breath with HandiHaler) risankizumab-rzaa 150 mg/mL 150 mg subcut Q90D 5 12/18/24 History subcutaneous pen injector (Andria) lidocaine 5 % topical patch 2 patch topical DAILY #60 ea 01/01/25 Unknown Rx oxycodone 5 mg tablet 5 mg PO Q6H PRN PRN Pain Sco re 4-5 01/01/25 Unknown Rx Or Pre Pt/Ot 7 days #35 tabs baclofen 10 mg tablet 5 mg PO BID 04/22/25 Unknown History baclofen 5 mg tablet 5 mg PO DAILY 04/22/25 Unkno wn History oxycodone-acetaminophen 5 mg-325 1 tab PO TID 04/22/25 Unknown History mg tablet Allergy/AdvReac Type Severity Reaction Status Date / Time No Known Allergies Allergy Verified 04/22/25 18:40 Family History no significant family his Surgical History Status post kyphoplasty History of partial hysterectomy History of bladder suspension procedure History of appendectomy History of cholecystectomy H/O hernia repair Social History household members: none Smoking Status: Former smoker substance use type: does not use ROS ROS ED Constitutional Constitutional ED: Denies chills or fever(s) Eyes Eyes: Denies change in vision Cardiovascular Cardiovascular: Denies chest pain Respiratory/Chest Respiratory/Chest: Denies cough or dyspnea Gastrointestinal Gastrointestinal: Denies abdominal pain, nausea or vomiting Musculoskeletal Musculoskeletal: Reports arthralgias, back pain and neck pain Integumentary Reports Abrasions; Denies rash Neurologic Neurologic: Reports headache(s); Denies paresthesias or weakness Hematologic/Lymphatic Hematologic/Lymphatic: Reports easy bleeding, easy bruising and other Details: On Xarelto EXAM Physical Exam Const Vital Signs: 04/22/25 18:40 04/22/25 19:18 04/22/25 19:40 Temperature 96.9 F L Temperature Source Temporal Pulse Rate 79 71 Respiratory Rate 14 17 Respiratory Effort Short of Breath Respiratory Depth Normal Respiratory Pattern Normal Blood Pressure 152/77 H 140/91 H Blood Pressure Mean 102 107 Pulse Ox 98 97 Oxygen Delivery Method Room Air Nasal Cannula Nasal Cannula Oxygen Flow Rate (L/min) 2 2 04/22/25 20:00 04/22/25 21:00 04/22/25 22:00 Temperature Temperature Source Pulse Rate 67 75 73 Respiratory Rate 19 H 18 18 Respiratory Effort Respiratory Depth Respiratory Pattern Blood Pressure 151/78 H 137/74 H 146/88 H Blood Pressure Mean 102 95 107 Pulse Ox 94 95 96 Oxygen Delivery Method Nasal Cannula Nasal Cannula Nasal Cannula Oxygen Flow Rate (L/min) 2 2 2 Positive well nourished and well developed Constitutional Narrative: Patient is uncomfortable appearing General Appearance ED: well developed HEENT Reports TM's clear and moist mucous membranes HEENT Narrative: No signs of basilar skull fracture. Hematoma to the right cheek/lateral periorbital area. trauma Tympanic Membrane ED: Yes TM's clear Eyes PERRL and EOMs intact bilaterally Eyes Narrative: Subtle subconjunctival hemorrhage present on the right eye at approximately the 6 o'clock position near the edge of the iris Neck supple Neck Narrative: Diffuse tenderness but no pinpoint bony tenderness. No step-off sign present. General: tenderness Chest Wall inspection of chest normal Chest Narrative: No chest wall crepitus. Tense palpation of the left lower ribs Resp normal respiratory effort and clear to auscultation bilaterally Cardio regular rhythm Rhythm: abnormal rhythm irregularly irregular GI normal to inspection, nondistended, normoactive bowel sounds Back/Spine Back/Spine Narrative: Mild to palpation of the lumbar spine however patient states this is her chronicpain and none of that is new. No thoracic tenderness to palpation of the spinous process. Thoracic Spine / Upper Back: Negative for thoracic spinal tenderness Extremity Extremity Narrative: No obvious deformity of the extremities. Pain with palpation and general range of motion of the left shoulder. No tenderness across the clavicle on the left. No bony deformity or tenderness of the bilateral elbows or hands. There is ecchymosis of the left thumb with tenderness over the proximal phalanx. No deformity present. Normal range of motion. Normal flexion extension. Pelvis is stable. There is bruising with overlying skin tear and associated edema to the right knee. Range of motion is preserved. Diffuse tenderness present. Neuro oriented x3, CN's II-XII intact bilaterally and no sensory deficits noted Sensorium / Orientation: alert Motor Exam: strength 5/5 throughout and general weakness Psych mental status grossly normal Skin Skin Narrative: Small skin tear to the right hand as well as the right anterior knee. Scatteredecchymosis from her recent fall present. MDM MDM MDM Narrative Medical decision making narrative: Patient evaluated for injuries after fall. It is not clear if is mechanical fall or syncopal related. Patient does not recall. She is obvious signs of trauma on physical exam including bruising around her face, pain and bruising toher left wrist, bruising pain and swelling to her right knee and significant pain to her left ribs and also left shoulder pain. Differential includes arrhythmia, symptomatic anemia, mechanical fall, intracranial hemorrhage, skull fracture, cervical spine fracture, rib fracture, pulmonary contusion, pneumothorax, infection, wrist fracture, phalanx fracture, shoulder fracture, dislocation, tibial plateau fracture and patellar fracture aswell as knee contusion. Patient is given Dilaudid for pain control emergency room especially as she is on chronic pain medication. CBC and BMP largely normal. Urinalysis normal not consistent with infection. EKG shows atrial fibrillation which is chronic for the patient. CT of the brain shows a subdural hemorrhage 6 mm in thickness with no mass effect. CT of the neck does not show any acute traumatic injury. CT of the chest shows multiple bilateral rib nondisplaced cortical buckle fractures some which may be acute. There are 2 need to characterize per my discussion with radiology to individually thing the ribs. There are chronic appearing compression fractures of T8, L1 and L2 with kyphoplasty at L2 and no significantretropulsion. No other acute process. Left hand x-ray shows probable nondisplaced fracture of the left scaphoid waist. No dislocation. Patient placed in a thumb spica splint for this. She does have corresponding tenderness and bruising. Knee x-ray reviewed by myself as well as radiology does not show any acute fracture or dislocation does show soft tissue swelling. Patient given Kcentra for reversal given life-threatening hemorrhage of the brain on Xarelto. Spoke with transfer center at [facility] (patient's hospital request) and with Dr. Gonzalez. She accepts the patient to the trauma service. Will be adirect admit. Transportation pending. I did notify the patient's granddaughter, Anna as well as her son Julio Cesar. His phone number is updated [phone]. At this time patient is GCS of 15, is protecting her airway and remains hemodynamically stable. Will continue to monitor closely Lab Data Attestation: I reviewed the patient's lab results. Labs: Laboratory Results - last 24 hr 04/22/25 04/22/25 20:25 21:43 WBC 10.3 RBC 4.57 Hgb 15.1 H Hct 46.9 MCV 102.6 H MCH 33.0 H MCHC 32.2 RDW Std Deviation 53.5 H RDW Coeff of Mildred 13.9 Plt Count 187 MPV 10.4 Immature Gran % (Auto) 0.800 Neut % (Auto) 77.3 H Lymph % (Auto) 13.5 L Sauk % (Auto) 7.5 Eos % (Auto) 0.4 Baso % (Auto) 0.5 Absolute Neuts (auto) 8.0 H Absolute Lymphs (auto) 1.39 Nucleated RBC % 0 Sodium 141 Potassium 3.8 Chloride 105 Carbon Dioxide 27.3 Anion Gap 9 BUN 19 Creatinine 0.50 L Estim Creat Clear Calc 44.08 L Est GFR (MDRD) Non-Af 93 BUN/Creatinine Ratio 37.1 H Glucose 101 H Calcium 9.3 Urine Color Yellow Urine Clarity Clear Urine pH 5.0 Ur Specific Laurel 1.025 Urine Protein 15 H Urine Glucose (UA) 1000 H Urine Ketones 5 H Urine Occult Blood 10 H Urine Nitrite Negative Urine Bilirubin Negative Urine Urobilinogen Normal Ur Leukocyte Esterase Negative Urine RBC 0-5 SEEN Urine WBC 0-5 SEEN Ur Squamous Epith Cells 0-5 SEEN Urine Bacteria 0 SEEN Urine Mucus RARE Radiography Diagnostic Testing: Clinical Impression(s) from Imaging Studies Shoulder X-Ray 04/22/25 18:50 IMPRESSION: No acute fracture or dislocations. Mild to moderate degenerative changes of theleft shoulder. No acute soft tissue abnormalities. No radiographic foreign body. Reading Location: [facility] Knee X-Ray 04/22/25 20:02 IMPRESSION: No acute fracture or dislocation. Prominent prepatellar soft tissue swelling. Reading Location: [facility] Brain CT 04/22/25 20:40 IMPRESSION: There is subdural blood along the interhemispheric fissure and there is a small amount of subdural blood along the right frontal convexity without mass effect. That measures 6 mm. Reading Location: [id number] Cervical Spine CT 04/22/25 20:40 IMPRESSION: Negative for cervical spine fracture Reading Location: [id number] Chest CT 04/22/25 20:40 IMPRESSION: 1. Multiple bilateral nondisplaced cortical buckle fracture deformities, some ofwhich may be acute. Correlate with point area tenderness. 2. Chronic appearing compression fractures of T8, L1 and L2, with kyphoplasty bone cement at L2, and no significant retropulsion. 3. No pneumothorax. Cardiomegaly with interstitial edema and trace basilar pleural effusions. Reading Location: [facility] Hand X-Ray 04/22/25 20:45 IMPRESSION: Probable nondisplaced fracture of the left scaphoid waist. No dislocation. Reading Location: [facility] Rhythm Strip Rhythm Strip: A-fib Rate: 73 Ectopy: None EKG Initial EKG: Attestation: I personally reviewed and interpreted this EKG as follows: Interpretation: Atrial Fibrillation Comments: Atrial fibrillation at a rate of 73 bpm Normal axis Normal QRS Normal QTc Normal ST segment Prior EKG tracings: available for review Prior: Unchanged Management Discussion w/another healthcare provider: Operations Superintendent and Radiologist Critical Care Time Critical Care Time: Yes Critical care time (excluding procedures): 30-74 minutes (45), Discussing w/Patient &/or Family/Cadd Manager, Discussing w/Consultants and Arranging Admission or Transfer Discharge Plan Triage Chief Complaint: Fall ED Provider: Brisa Gmable Dx/Rx/DC Orders Clinical Impression: Subdural hemorrhage, [facility] (current) use of anticoagulants, Fracture of scaphoid bone of left wrist, Rib pain on left side, Fall, Contusion of knee, right Prescriptions: No Action atenolol 25 mg tablet 25 mg PO [...] DAILY PRN (Reason: shortness of breath ) oxycodone-acetaminophen 5-325 mg tablet 1 tab PO TID baclofen 10 mg tablet 5 mg PO BID baclofen 5 mg tablet 5 mg PO DAILY Skyrizi 150 mg/mL pen injector 150 mg SUBCUT Q90D Patient Comments: [NO ORIGINAL SIG] lidocaine 5 % Adhesive Patch,Medicated 2 patch [...] every 6 hours as needed for pain Primary Care Provider: Marty Guthrie Referrals: Marty Guthrie MD [Primary Care Provider] - Print Language: Swiss Disposition Disposition: Acute Care [facility] What to do if you have Problems For any increased pain, shortness of breath, bleeding, nausea or vomiting, chestpain, or any unexpected problems, contact your Primary Care Provider. Call [facility] ([phone]) or report to the closest Emergency Room. Call 911 if necessary. 04/22/252235 <Electronically signed by Brisa Gamble DO> Cosigner Signature (if applicable): CC: Dr. Marty Guthrie MD ~ Signed [facility] Work Phone: [phone] 220-864208-14-2025 Telephone encounter Note* Telephone Encounter - Nisa Cote - 04/03/2025 8:38 AM EDT Name of caller: Annelise Contact phone number: [phone] Relationship to Patient: PCP Provider: Kraig Practice: [facility] Chief Complaint/Reason for Call: Annelise calling in to let Felecia know pt is cleared by PCP to have any medications. Best time of day caller can be reached: Any Patient advised that office/PCP has 24-48 business hours to return [facility] call[id number] Miscellaneous Notes* Telephone Encounter - Nisa Cote - 04/03/2025 8:38 AM EDT Name of caller: Annelise Contact phone number: [phone] Relationship to Patient: PCP Provider: Kraig Practice: [facility] Chief Complaint/Reason for Call: Annelise calling in to let Felecia know pt is cleared by PCP to have any medications. Best time of day caller can be reached: Any Patient advised that office/PCP has 24-48 business hours to return their call: * Telephone Encounter - Le Najera - 03/28/2025 1:07 PM EDT Name of caller: Annelise Contact phone number: [phone] Relationship to Patient: Dr. Guthrie's office Provider: REESE Flowers Practice: [facility] Chief Complaint/Reason for Call: Annelise from Dr. Guthrie's office stated that the patient had a DEXAbone density test don on 03/20/2025 and would like to verify that the office received those results. Annelise stated that the patient's osteo is worsening and the patient has an appointment scheduled with Hematology Oncology in regards to abnormal blood work. Annelise stated that they requested to wait until after the appointment with hematology oncology before specialty medications are prescribed for the patient. Please advise. Best time of day caller can be reached: Any Patient advised that office/PCP has 24-48 business hours to return their call: Yes documented in this [facility]08-11-2025 NoteHNO ID: [id number] Author: GAGAN VIVAR MD Service: ? Author Type: Physician Type: Progress Notes Filed: 2025 14:13 Note Text: HISTORY OF PRESENT ILLNESS: Lesli Rosales is a 85 year old female with severe osteoporosis, saw [facility], they noted monoclonal protein in blood and urine prior to initiating bone anabolic therapy. Here for evaluation. Labs reviewed low level M spike kappa chains in urine. Labs otherwise not suggestive of myeloma. CLINICAL IMPRESSION: Low level monoclonal gammopathy, other labs indicate MGUS RECOMMENDATION/PLAN: 1. See no reason she cannot have bone modifiers on basis of these labs Written and verbal health teaching given to patient, patient verbalizes understanding and agrees with treatment plan. PAST MEDICAL HISTORY[1] PAST SURGICAL HISTORY Procedure Laterality Date APPENDECTOMY BACK SURGERY HX 1985 CHOLECYSTECTOMY HX COLONOSCOPY SCREENING EGD W/O [facility] SPEC VARICIES INJ REPAIR OF RECTOCELE REPAIR UMBILICAL HERNIA 2009 SHX TOTAL SHOULDER REVERSE Right SLING OPER STRES INCONTINENCE UMBILICAL HERNIA REPAIR 5 OR OLDER 1966 VAGINAL HYSTERECTOMY FAMILY HISTORY[2] SOCIAL HISTORY[3] ALLERGIES: ALLERGIES[4] CURRENT OUTPATIENT MEDICATIONS: buprenorphine (BUTRANS) 5 mcg/hour transdermal patch Apply 1 patch as directed one time a week. furosemide (LASIX) 20 mg tablet TAKE 1 TABLET BY MOUTH EVERY DAY NEEDED SWELLING (Patient taking differently: Take 20 mg by mouth once daily as needed.) Cholecalciferol, Vitamin D3, 50 mcg (2,000 unit) cap Take 2,000 Units by mouth. (Patient taking differently: Take 2,000 Units by mouth once daily.) atenolol (TENORMIN) 25 mg tablet TAKE 1 TABLET BY MOUTH ONCE DAILY famotidine (PEPCID) 20 mg tablet TAKE 1 TABLET BY MOUTH ONCE DAILY rivaroxaban (XARELTO) 20 mg tablet Take 1 tablet by mouth daily with dinner. budesonide-formoterol (SYMBICORT) 160-4.5 mcg/actuation inhaler Inhale 2 Puffs as instructed two times a day. risankizumab-rzaa (SKYRIZI) 150 mg/mL injection Inject 150 mg subcutaneously every 3 months. albuterol HFA (PROVENTIL HFA, VENTOLIN HFA) 90 mcg/actuation inhaler (Patient taking differently: Inhale 1 puff as instructed every 4 hours as needed.) baclofen (LIORESAL) 5 mg tablet Take 5 mg by mouth twice daily. (Patient taking differently: Take 5 mg by mouth daily at bedtime.) betamethasone valerate 0.1 % cream Apply to affected area once daily. Apply to arms (Patient taking differently: Apply 1 application to affected area once daily as needed. Apply to arms) amitriptyline (ELAVIL) 25 mg tablet 25 mg daily at bedtime. (Patient not taking: Reported on 2025) hydroCHLOROthiazide 12.5 mg capsule TAKE 1 CAPSULE BY MOUTH ONCE DAILY (Patient not taking: Reported on 2025) tiotropium (SPIRIVA WITH HANDIHALER) 18 mcg inhalation capsule inhale THE CONTENTS OF ONE CAPSULE IN THE HANDIHALER every morning (Patient not taking: Reported on 2025) lidocaine (LIDODERM) 5 % (Patient not taking: Reported on 2025) gabapentin (NEURONTIN) 100 mg capsule Take 100 mg by mouth three times a day. (Patient not taking: Reported on 2025) hydrOXYzine HCl (ATARAX) 25 mg tablet Take 1 tablet by mouth three times a day as needed. (Patient not taking: Reported on 2025) REVIEW OF SYSTEMS: GENERAL: No fever, night sweats, weight loss or malaise. All other reviewed and negative other than HPI. PHYSICAL EXAMINATION: VITAL SIGNS: BP 146/83 Pulse 61 Temp (Src) 98.8 (Temporal) Ht 5' 0" (1.52m) Wt 129 lb 8 oz (58.7kg) SpO2 93% BMI 25.29 kg/(m2). GENERAL APPEARANCE: Well appearing, in no acute distress, alert and oriented x3, well-hydrated, well nourished. I spent a total of 45 minutes on the date of the service which included preparing to see the patient, [id number] patient care, completing clinical documentation, obtaining and/or reviewing separately obtained history, counseling and educating the patient/family/caregiver, communicating with other HCPs (not separately reported), independently interpreting results (not separately reported), and communicating results to the patient/family/caregiver. Electronically Signed: Gagan Vivar MD 2025 1:14 PM [1] Past Medical History: No date: A-fib ([facility]) No date: Chronic obstructive pulmonary disease (COPD) ([facility]) No date: Hypertension No date: Lung nodules No date: Psoriasis No date: Psoriatic arthritis ([facility]) [2] Review of patient's family history indicates: Adopted: Yes [3] Social History Tobacco Use Smoking status: Former Current packs/day: 0.00 Average packs/day: 1 pack/day for 17.0 years (17.0 ttl pk-yrs) Types: Cigarettes Start date: 09/22/1958 Quit date: 09/22/1975 Years since quittin.5 Smokeless tobacco: Never Vaping Use Vaping status: Never Used Substance Use Topics Alcohol use: Not Currently Drug use: Never [4] [facility] History of Present illness Narrative* Gagan Vivar MD - 2025 1:14 PM EDT HISTORY OF PRESENT ILLNESS: Lesli Rosales is a 85 year old female with severe osteoporosis, saw bone health clinic, they noted monoclonal protein in blood and urine prior to initiating bone anabolic therapy. Here for evaluation. Labs reviewed low level M spike kappa chains in urine. Labs otherwise not suggestive of myeloma. CLINICAL IMPRESSION: Low level monoclonal gammopathy, other labs indicate MGUS RECOMMENDATION/PLAN: 1. See no reason she cannot have bone modifiers on basis of these labs Written and verbal health teaching given to patient, patient verbalizes understanding and agrees with treatment plan. PAST MEDICAL HISTORY[1] PAST SURGICAL HISTORY Procedure Laterality Date APPENDECTOMY BACK SURGERY HX 1985 CHOLECYSTECTOMY HX COLONOSCOPY SCREENING EGD W/O [facility] SPEC VARICIES INJ REPAIR OF RECTOCELE REPAIR UMBILICAL HERNIA 2009 SHX TOTAL SHOULDER REVERSE Right SLING OPER STRES INCONTINENCE UMBILICAL HERNIA REPAIR 5 OR OLDER 1965 VAGINAL HYSTERECTOMY FAMILY HISTORY[2] SOCIAL HISTORY[3] ALLERGIES: ALLERGIES[4] CURRENT OUTPATIENT MEDICATIONS: buprenorphine (BUTRANS) 5 mcg/hour transdermal patch Apply 1 patch as directed one time a week. furosemide (LASIX) 20 mg tablet TAKE 1 TABLET BY MOUTH EVERY DAY NEEDED SWELLING (Patient takingdifferently: Take 20 mg by mouth once daily as needed.) Cholecalciferol, Vitamin D3, 50 mcg (2,000 unit) cap Take 2,000 Units by mouth. (Patient taking differently: Take 2,000 Units by mouth once daily.) atenolol (TENORMIN) 25 mg tablet TAKE 1 TABLET BY MOUTH ONCE DAILY famotidine (PEPCID) 20 mg tablet TAKE 1 TABLET BY MOUTH ONCE DAILY rivaroxaban (XARELTO) 20 mg tablet Take 1 tablet by mouth daily with dinner. budesonide-formoterol (SYMBICORT) 160-4.5 mcg/actuation inhaler Inhale 2 Puffs as instructed two times a day. risankizumab-rzaa (SKYRIZI) 150 mg/mL injection Inject 150 mg subcutaneously every 3 months. albuterol HFA (PROVENTIL HFA, VENTOLIN HFA) 90 mcg/actuation inhaler (Patient taking differently: Inhale 1 puff as instructed every 4 hours as needed.) baclofen (LIORESAL) 5 mg tablet Take 5 mg by mouth twice daily. (Patient taking differently: Take 5mg by mouth daily at bedtime.) betamethasone valerate 0.1 % cream Apply to affected area once daily. Apply to arms (Patient takingdifferently: Apply 1 application to affected area once daily as needed. Apply to arms) amitriptyline (ELAVIL) 25 mg tablet 25 mg daily at bedtime. (Patient not taking: Reported on 2025) hydroCHLOROthiazide 12.5 mg capsule TAKE 1 CAPSULE BY MOUTH ONCE DAILY (Patient not taking: Reported on 2025) tiotropium (SPIRIVA WITH HANDIHALER) 18 mcg inhalation capsule inhale THE CONTENTS OF ONE CAPSULE IN THE HANDIHALER every morning (Patient not taking: Reported on 2025) lidocaine (LIDODERM) 5 % (Patient not taking: Reported on 2025) gabapentin (NEURONTIN) 100 mg capsule Take 100 mg by mouth three times a day. (Patient not taking: Reported on 2025) hydrOXYzine HCl (ATARAX) 25 mg tablet Take 1 tablet by mouth three times a day as needed. (Patient not taking: Reported on 2025) REVIEW OF SYSTEMS: GENERAL: No fever, night sweats, weight loss or malaise. All other reviewed and negative other than HPI. PHYSICAL EXAMINATION: VITAL SIGNS: BP 146/83 Pulse 61 Temp (Src) 98.8 (Temporal) Ht 5' 0" (1.52m) Wt 129 lb 8 oz (58.7kg) SpO2 93% BMI 25.29 kg/(m^2). GENERAL APPEARANCE: Well appearing, in no acute distress, alert and oriented x3, well-hydrated, well nourished. I spent a total of 45 minutes on the date of the service which included preparing to see the patient, [id number] patient care, completing clinical documentation, obtaining and/or reviewing separately obtained history, counseling and educating the patient/family/caregiver, communicating with other HCPs (not separately reported), independently interpreting results (not separately reported), and communicating results to the patient/family/caregiver. Electronically Signed: Gagan Vivar MD 2025 1:14 PM [1] Past Medical History: No date: A-fib ([facility]) No date: Chronic obstructive pulmonary disease (COPD) ([facility]) No date: Hypertension No date: Lung nodules No date: Psoriasis No date: Psoriatic arthritis ([facility]) [2] Review of patient's family history indicates: Adopted: Yes [3] Social History Tobacco Use Smoking status: Former Current packs/day: 0.00 Average packs/day: 1 pack/day for 17.0 years (17.0 ttl pk-yrs) Types: Cigarettes Start date: 09/22/1958 Quit date: 09/22/1975 Years since quittin.5 Smokeless tobacco: Never Vaping Use Vaping status: Never Used Substance Use Topics Alcohol use: Not Currently Drug use: Never [4] No Known Allergies [facility] Telephone encounter Note * Telephone Encounter - Le Najera - 03/28/2025 1:07 PM EDT Name of caller: Annelise Contact phone number: [phone] Relationship to Patient: Dr. Guthrie's office Provider: REESE Flowers Practice: [facility] Chief Complaint/Reason for Call: Annelise from Dr. Guthrie's office stated that the patient had a DEXAbone density test don on 03/20/2025 and would like to verify that the office received those results. Annelise stated that the patient's osteo is worsening and the patient has an appointment scheduled with Hematology Oncology in regards to abnormal blood work. Annelise stated that they requested to wait until after the appointment with hematology oncology before specialty medications are prescribed for the patient. Please advise. Best time of day caller can be reached: Any Patient advised that office/PCP has 24-48 business hours to return their call: Yes [facility] Miscellaneous Notes* Telephone Encounter - Le Traylormichelle - 03/28/2025 1:07 PM EDT Name of caller: Annelise Contact phone number: [phone] Relationship to Patient: Dr. Guthrie's office Provider: REESE Flowers Practice: [facility] Chief Complaint/Reason for Call: Annelise from Dr. Guthrie's office stated that the patient had a DEXAbone density test don on 03/20/2025 and would like to verify that the office received those results. Annelise stated that the patient's osteo is worsening and the patient has an appointment scheduled with Hematology Oncology in regards to abnormal blood work. Annelise stated that they requested to wait until after the appointment with hematology oncology before specialty medications are prescribed for the patient. Please advise. Best time of day caller can be reached: Any Patient advised that office/PCP has 24-48 business hours to return their call: Yes documented in this [facility]08-05-2025 Telephone encounter Note* Telephone Encounter - Zulma Senior MA - 03/25/2025 8:41 AM EDT Prescription Refill Information The patient has been identified by name and date of : Yes Caregiver verified no other encounters exist for this prescription request: Yes Caregiver confirmed with patient/requestor that no other refills are due, in the near future, with this provider at this time: Yes The last office visit in the department: 07/10/2024 Does the patient have a future office visit with this provider/department: No Requested Prescriptions Pending Prescriptions Disp Refills atenolol (TENORMIN) 25 mg tablet [Pharmacy Med Name: Atenolol 25 MG Oral Tablet] 100 tablet 2 Sig: TAKE 1 TABLET BY MOUTH ONCE DAILY Zulma Senior MA March 25, 2025 8:41 AM [facility]08-05-2025 Miscellaneous Notes* Telephone Encounter - Zulma Senior MA - 03/25/2025 8:41 AM EDT Prescription Refill Information The patient has been identified by name and date of : Yes Caregiver verified no other encounters exist for this prescription request: Yes Caregiver confirmed with patient/requestor that no other refills are due, in the near future, with this provider at this time: Yes The last office visit in the department: 07/10/2024 Does the patient have a future office visit with this provider/department: No Requested Prescriptions Pending Prescriptions Disp Refills atenolol (TENORMIN) 25 mg tablet [Pharmacy Med Name: Atenolol 25 MG Oral Tablet] 100 tablet 2 Sig: TAKE 1 TABLET BY MOUTH ONCE DAILY Zulma Senior MA March 25, 2025 8:41 AM documented in this encounterC[facility] Evaluation note* Diagnosis Onset Date Resolution Status Admit Date Acute cystitis without hematuria inactive March 08, 2025 10:32am Status post kyphoplasty acute J irlanda 2024 10:24am Arthritis of left hip chronic Barney y 2024 10:24am Compression fracture of L3 vertebra chronic March 13, 2025 10:24am Low bone density deleted February 10:24am Dehydration acute April 6:05pm Fall acute April 29, 2025 6:05pm Left shoulder pain acute Septem delma 2024 6:05pm Multiple rib fractures acute Se ptember 2024 6:05pm Physical debility acute Septemb er 2024 6:05pm Subdural hematoma acute Septemb er 2024 6:05pm Vertebral compression fracture acute April 29, 2025 6:05pm Chronic pain chronic April 6:05pm Compression fracture of L3 vertebra chronic April 29, 025 6:05pm Exercise hypoxemia chronic Septem delma 2024 6:05pm Hypoxemia associated with sleep chronic April 29, 025 6:05pm Mild cognitive impairment of uncertain or unknown etiology chronic Se ptember 2024 6:05pm Osteoporosis chronic April 6:05pm Paroxysmal atrial fibrillation chron ic April 29, 2025 6:05pm Psoriatic arthritis chronic Septe mber 2024 6:05pm Pulmonary hypertension chronic Se ptember 2024 6:05pm Pulmonary nodule 1 cm or greater in diameter chronic April 6:05pm Venous insufficiency chronic Sept ember 2024 6:05pm Vitamin D deficiency chronic Sept ember 2024 6:05pm Cellulitis resolved April 29, 2025 6:05pm Traumatic hematoma of right knee resolved April 29, 025 6:05pm Chronic anticoagulation inactive S epteer 2024 6:05pm [facility] Work Phone: 1(540) 648-512307-19-2025 Evaluation note* Diagnosis Onset Date Resolution Status Admit Date Acute cystitis without hematuria inactive March 08, 2025 10:32am Status post kyphoplasty acute J irlanda 2024 10:24am Arthritis of left hip chronic Barney y 2024 10:24am Compression fracture of L3 vertebra chronic March 13, 2025 10:24am Low bone density deleted February 10:24am Dehydration acute April 6:05pm Fall acute April 29, 2025 6:05pm Left shoulder pain acute Septem 2024 6:05pm Multiple rib fractures acute Se ptember 2024 6:05pm Physical debility acute Septemb er 2024 6:05pm Subdural hematoma acute Septemb er 2024 6:05pm Vertebral compression fracture acute April 29, 2025 6:05pm Chronic pain chronic April 6:05pm Compression fracture of L3 vertebra chronic April 29 025 6:05pm Exercise hypoxemia chronic 2024 6:05pm Hypoxemia associated with sleep chronic April 29, 025 6:05pm Mild cognitive impairment of uncertain or unknown etiology chronic Se ptember 2024 6:05pm Osteoporosis chronic April 6:05pm Paroxysmal atrial fibrillation chron ic April 29, 2025 6:05pm Psoriatic arthritis chronic Septe mber 2024 6:05pm Pulmonary hypertension chronic Se ptember 2024 6:05pm Pulmonary nodule 1 cm or greater in diameter chronic April 6:05pm Venous insufficiency chronic Sept ember 2024 6:05pm Vitamin D deficiency chronic Sept ember 2024 6:05pm Cellulitis resolved April 29, 2025 6:05pm Traumatic hematoma of right knee resolved April 29 025 6:05pm Chronic anticoagulation inactive S eptember 2024 6:05pm Ulcer of right leg acute Septem 2024 2:02pm [facility] Work Phone: 1(881) 839-308507-18-2025 Telephone encounter Note* Telephone Encounter - Mari Lina - 03/07/2025 7:59 PM EDT Name of caller: Annelise Contact phone number: Relationship to Patient: [facility] Provider: [facility] Practice: [facility] Chief Complaint/Reason for Call: calling to report that patient had a high blood pressure reading of 172/98 pulse 72 today , however was having pain at 10 on pain scale at the time Best time of day caller can be reached: anytime Patient advised that office/PCP has 24-48 business hours to return their call: N/A [id number] Miscellaneous Notes* Telephone Encounter - Mari Mills - 03/07/2025 7:59 PM EDT Name of caller: Annelise Contact phone number: Relationship to Patient: [facility] Provider: [facility] Practice: [facility] Chief Complaint/Reason for Call: calling to report that patient had a high blood pressure reading of 172/98 pulse 72 today , however was having pain at 10 on pain scale at the time Best time of day caller can be reached: anytime Patient advised that office/PCP has 24-48 business hours to return their call: N/A documented in this [facility]06-28-2025 Telephone encounter Note* Telephone Encounter - Danae Cooper MA - 02/15/2025 9:15 AM EDT Prescription Refill Information The patient has been identified by name and date of : Yes Caregiver verified no other encounters exist for this prescription request: Yes Caregiver confirmed with patient/requestor that no other refills are due, in the near future, with this provider at this time: Yes The last office visit in the department: 07/10/24 Does the patient have a future office visit with this provider/department: No Requested Prescriptions Pending Prescriptions Disp Refills famotidine (PEPCID) 20 mg tablet [Pharmacy Med Name: Famotidine 20 MG Oral Tablet] 100 tablet 2 Sig: TAKE 1 TABLET BY MOUTH ONCE DAILY Danae Cooper MA February 15, 2025 9:15 AM [facility]06-28-2025 Miscellaneous Notes* Telephone Encounter - Danae Cooper MA - 02/15/2025 9:15 AM EDT Prescription Refill Information The patient has been identified by name and date of : Yes Caregiver verified no other encounters exist for this prescription request: Yes Caregiver confirmed with patient/requestor that no other refills are due, in the near future, with this provider at this time: Yes The last office visit in the department: 07/10/24 Does the patient have a future office visit with this provider/department: No Requested Prescriptions Pending Prescriptions Disp Refills famotidine (PEPCID) 20 mg tablet [Pharmacy Med Name: Famotidine 20 MG Oral Tablet] 100 tablet 2 Sig: TAKE 1 TABLET BY MOUTH ONCE DAILY Danae Cooper MA February 15, 2025 9:15 AM documented in this encounterC[facility]06-[facility]-2025 Radiology Diagnostic study note [facility] Imaging Services [address] [place] [id number] Lumbar Spine 2 or 3 Views MR#: [id number] Acct: [id number] Name: LESLI ROSALES Rep #: [id number] : 1940 F 84 From: Shahbaz Toledo MD PCP: Dr. Marty Guthrie MD Status: REG E R Study:Lumbar Spine 2 or 3 Views Date of Exam: 02/11/25 Exam# [id number] Ordering Dr: Lucas Wong DO PROCEDURE: LUMBAR SPINE 2 OR 3 VIEWS 02/12/2025 REASON FOR EXAM: INJURY/PAIN TECHNIQUE: LUMBAR SPINE 2 OR 3 VIEWS COMPARISON: 12/30/2024 FINDINGS: The bones are osteoporotic. The patient is status post vertebroplasty of L2. There is approximately 25% loss of height of the body of L2 and L3. There is severe narrowing of the intervertebral discs of T12-L1. Grade 1 spondylolisthesis of L5 over S1 is seen. There is severe narrowing of the corresponding intervertebral disc. Degenerative changes are seen involving the intervertebral facet joints. There is leftward scoliosis with its angle tip at the level of L2 estimated at 25?. The abdominal aorta is calcified. RAD/Lumbar Spine 2 or 3 Views IMPRESSION: Osteoporosis. Status post vertebroplasty of L2. Compression fracture of the body of L2-3, age unknown. MRI would be helpful forfurther evaluation. Grade 1 spondylolisthesis of L5 over S1 with severe narrowing of the corresponding axial images. Reading Location: [place] [address] CC: Dr. Lucas Wong DO; Dr. Marty Guthrie MD ~ Coat Baster: Signed [facility]06-13-2025 Telephone encounter Note* Telephone Encounter - Avisshelli Anthony - 01/31/2025 5:31 PM EDT Name of caller: Kaye ([facility]) Contact phone number: [phone] Relationship to Patient: na Provider: Dr. Guthrie Practice: [facility] Chief Complaint/Reason for Call: Calling to advise after several attempts to contact Pt for OT apptthis week. Kaye was unable to reach patient for visit. Please advise Best time of day caller can be reached: Any AM Patient advised that office/PCP has 24-48 business hours to return their call: N/A [id number] Miscellaneous Notes* Telephone Encounter - Avis Anthony - 01/31/2025 5:31 PM EDT Name of caller: Kaye ([facility]) Contact phone number: [phone] Relationship to Patient: na Provider: Dr. Guthrie Practice: [facility] Chief Complaint/Reason for Call: Calling to advise after several attempts to contact Pt for OT apptthis week. Kaye was unable to reach patient for visit. Please advise Best time of day caller can be reached: Any AM Patient advised that office/PCP has 24-48 business hours to return their call: N/A documented in this encounterSOhio State East [id number] History of Present illness Narrative* Felecia Mercado, LAVELLE - RN HEMODIALYSIS - 01/23/2025 9:00 AM EDT Images from the original note were not included. [facility] - [address] [facility] [address] Dept: [phone] Dept Loc: [phone] Visit type: New patient Reason for Visit: [...] guided on dosage adjustment pending labs if n eeded. We discussed limiting alcohol, caffeine and pop. I recommended adding prunes into daily dietfor bone health. Safe weight bearing exercise recommended [...] the patient. Patient understands that physical therapy canbe beneficial for osteoporosis to help with posture, balance/fall prevention and strength. Pillo Method may also be used during therapy to help with muscle strengthening, posture and alignment. Pt declines at this time. Advised pt on the following: Adequate dietary calcium intake of 4999-4979 mg per day through diet and/or supplements. Vitamin D3 8367-6040 IU daily. Participate in weight bearing exercises. [...] Mike Malagon did bone biopsy in 12/2024 [facility] in [place]. Staff is calling to get result. Review [...] HENT: Head: Normocephalic and atraumatic. Mouth/Throat: Lips: [place]. Mouth: Mucous membranes are moist. Dentition: Normal [...] CREATININE 0.53 02/09/2022 No results found for: "ALKPHOS" No results found for: "TSH", "H5TDXIW", "V4SEFGY", "THYROIDAB", "T4FREE" No results found for: "PTH" No components found for: "EGXWFEWA54FN" Imaging/Testing: The combined time I spent reviewing previous notes/test results, evaluating the patient, providing counseling on disease process and treatment plan the day of the visit as well as documenting avogqej65 minutes. I have addressed the above chronic [...] pain (7-10)., Disp: , Rfl: Risankizumab-rzaa (SKYRIZI RI), Inject under the skin., Disp: , Rfl: rivaroxaban (Xarelto) 20 MG tablet, Take 20 mg by mouth with evening meal. Take with food., Disp: ,Rfl: tiotropium (Spiriva) 18 MCG inhalation capsule, Place 1 capsule (18 mcg) into inhaler and inhale inthe morning., Disp: 30 capsule, Rfl: 11 [3] [...] 1985 TOTAL ABDOMINAL HYSTERECTOMY UPPER GASTROINTESTINAL ENDOSCOPY [5] Family History Adopted: Yes Problem Relation Name Age of Onset Chronic bronchitis Mother Emphysema Mother documented in this [facility]06-05-2025 Instructions* Patient Instructions* LAVELLE Andrews CNP - 01/23/2025 9:00 AM EDT Call [phone] to schedule your bone density test * Attachments The following attachments cannot be sent through Care Everywhere. * Abaloparatide, ADULT (Swiss) * Teriparatide, ADULT (Swiss) * Osteoporosis Discharge Instructions (Swiss) documented in this [facility]05-14-2025 Discharge summary [facility] Medical Records Department [address] [place] [address] Instructions for Home/Discharge Instructions 01/01/25 1318 MR#: [id number] Acct: [id number] Name: LESLI ROSALES Rep #:[id number] : 1940 84 From: Goldy Warren DO PCP: NISA GUTHRIE Status:ADM IN Discharge Instructions Diet Discharge Diet: No restrictions DC O2, CPAP, BIPAP needs Home O2 Discharge instructions: No Dressing / Incision Discharge Activity: - (Do not twist or bend, do not tack picker any object heavier than a gallon of milk) Weight Bearing Status: Full weight bearing Follow Up Care Test Results: Test results from this visit will be discussed in further detail at your follow- up appointment, if applicable. Discharge Plan Admission Admit Date/Time: 12/24/24 19:55 Primary Reason for Your Visit: L2 burst fracture Attending Provider: Goldy Warren Primary Care Provider: NISA GUTHRIE Consulting Providers: Kevin Caballero; Daniel Hall; [...] PRN (Reason: pain) Referrals / Follow Up: NISA GUTHRIE [Other] NISA GUTHRIE [Other] Mike Malagon MD [Med Staff - Active Staff] - See Referral Note (In 2 weeks, call for an appointment) Disposition Disposition (needs filled in before D/C Order can be placed): Home, Self Care 01/01/25 1326Goldy Warren DO CC: Dr. Daniel Hall MD; Dr. Mike Malagon MD; Dr. Kevin Caballero DO; Dr. Sveta Macias DO; NISA GUTHRIE ~ Signed [facility]05-14-2025 [facility]05-13-2025 Progress note Author Goldy Warren [facility] Note Date/Time December 31, 2024 4:59p m [facility] Medical Records Department [address] [place] [address] Progress Note - Hospitalist 12/31/241654 MR#: [id number] Acct: [id number] Name: LESLI ROSALES Rep #:[id number] : 1940 84 From: Goldy Warren DO PCP: NISA GUTHRIE Status:ADM IN Location: MS3 NB383-3 Reason for Visit Reason for Visit: Diagnoses [...] sequela (12/24/24) Other specified health status (12/24/24) [facility] (current) use of anticoagulants (12/24/24) Other specified [...] Intake and Output for Last 24 Hours 0512/30/24 12/31/24 23:59 23:59 23:59 Intake Total 100 [...] for possible discharge home versus admission to longterm facility #2 acute cystitis-patient has completed antibiotic treatment #3 paroxysmal Q-hao-afgykuy continues on atenolol, Xarelto was held due to patient's kyphoplasty, orthopedic surgery states that she can resume her Xareltotomorrow #4 osteoporosis-patient continues on vitamin D and calcium supplements #5 acute debility secondary to burst fracture of L2-PT OT will continue to see the patient, she may need temporary placement in the longterm facility for rehab services. [facility] patient if she decides she needs further rehab services as an inpatient. She will be reevaluated tomorrow for possible discharge to their or to her home. Total clinical time spent by myself addressing patient's medical issues, reviewing all her data, and collaborating with patient's care team: 35 minutes Charges/Coding Visit Charges Inpatient E&M: 52058 Subs Hosp L2 12/31/24 6923 <Electronically signed by Goldy Warren DO> Cosigner Signature (if applicable): CC: ~ Signed [facility] Work Phone: 1(341) 721-594005-13-2025 Consult note Author Chris Baer [facility] Note Date/Time December 31, 2024 3:55p [facility] Medical Records Department [address] [place] [address] Anesthesia Postop Eval I 12/30/24 1415 MR#: [id number] Acct: [id number] Name: LESLI ROSALES Rep #:[id number] : 1940 84 From: Chris ZUÑIGA PCP: NISA GUTHRIE Status:ADM IN Y Race: C Location: [place] [address] Anesthesia: Postop Eval I Current Vital Signs [...] document: Postop Eval 1 completed: Yes 12/31/24 7965 <Electronically signed by Chris Baer IDENTIFICATION CLERK> Date _ Chris Baer CRNA 12/30/24 1846<Electronically signed by Donta Mcmillan MD> Cosigner Signature: Date Donta Mcmillan MD CC: ~ Signed [facility] Work Phone: 1(294) 946-266405-13-2025 Progress note [facility] Medical Records Department [address] [place] [address] Progress Note - Hospitalist 12/31/24 1658 MR#: [id number] Acct: [id number] Name: LESLI ROSALES Jose Alberto Rep #:[id number] : 1940 84 From: Goldy Warren DO PCP: NISA GUTHRIE Status:ADM IN [facility] Reason for Visit Reason for Visit: Diagnoses [...] sequela (12/24/24) 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 [facility] the patient if she decides she needs further rehab services as an inpatient. She will be reevaluated tomorrow for possible discharge to their or to her home. Total clinical time spent by myself addressing patient's medical issues, reviewing all her data, and collaborating with patient's care team: 35 minutes Charges/Coding Visit Charges Inpatient E&M: 29070 Subs Hosp L2 12/31/24 7007 Cosigner Signature (if applicable): CC: ~ Signed [facility]05-13-2025 Consult note [facility] Medical Records Department [address] [place] [address] Anesthesia Postop Eval I 12/30/24 1415 MR#: [id number] Acct: [id number] Name: LESLI ROSALES Rep #:[id number] : 1940 84 From: Chris ZUÑIGA PCP: NISA GUTHRIE Status:ADM IN Y Race: C Location: [...] Postop Eval 1 completed: Yes 12/31/24 1555 IDENTIFICATION CLERK> Date _ Chris [place] IDENTIFICATION CLERK 12/30/24 1846 Cosigner Signature: Date Donta Mcmillan MD CC: ~ Signed [facility]05-13-2025 Telephone encounter Note* Telephone Encounter - Ana Rush LPN - 12/31/2024 3:[address] Marty Guthrie's office to inquire if physician will follow/sign for HHC. Spoke with Gerry who confirmed MD will follow for HHC orders. [facility] Work Phone: [phone] Miscellaneous Notes* Telephone Encounter - Ana Rush LPN - 12/31/2024 3:[address] Marty Guthrie's office to inquire if physician will follow/sign for HHC. Spoke with Gerry who confirmed will follow for HHC orders. [facility] Progress note Author Aleksandra Dunlap [facility] Note Date/Time December 31, 2024 1:22p [facility] Medical Records Department [address] [place] [address] Progress Note - Orthopedic 12/31/24 1319 MR#: [id number] Acct: [id number] Name: LESLI ROSALES Rep #:[id number] : 1940 84 From: Aleksandra COLEMAN PCP: NISA GUTHRIE Status:ADM IN Location: MS3 IF133-6 Subjective Subjective Postop day 1 L2 kyphoplasty. [...] kyphoplasty of the L2 vertebrae. Reading Location: [facility] Physical Exam Narrative Neurological examination of the [...] Cosigner Signature (if applicable): CC: ~ Signed [facility] Work Phone: 1(630) 835-768705-13-2025 Progress note [facility] Medical Records Department [address] [place] [address] Progress Note - Orthopedic 12/31/24 1319 MR#: [id number] Acct: [id number] Name: LESLI ROSALES Rep #:[id number] : 1940 84 From: Aleksandra COLEMAN PCP: NISA GUTHRIE Status:ADM IN Location: [facility] OJ455-6 Subjective Subjective Postop day 1 L2 kyphoplasty. [...] kyphoplasty of the L2 vertebrae. Reading Location: [facility] Physical Exam Narrative Neurological examination of the [...] Cosigner Signature (if applicable): CC: ~ Signed [facility]05-12-2025 Consult note Author Donta Mcmillan [facility] Note Date/Time December 30, 2024 6:28p [facility] Medical Records Department [address] [place] [address] Anesthesia Postop Eval II 12/30/24 1828 MR#: [id number] Acct: [id number] Name: LESLI ROSALES Rep #:[id number] : 1940 84 From: Donta Mcmillan MD PCP: NISA GUTHRIE Status:ADM IN Y Race: C Location: [facility] MS306 -1 Anesthesia Postop Eval I Sum Postop Eval Completion status Anesthesia document: Postop Eval 1 completed: Yes Anesthesia Postop Eval I Summary Anesthesia Postop Eval I Summary: Anesthesia Postop Eval I: Assessment Summary Airway patent No 12/30/24 14:16 IDENTIFICATION CLERK.[email or web address] Spontaneous unlabored No 12/30/24 14:16 IDENTIFICATION CLERK.SOBR respirations Mental status Awake 12/30/24 14:16 IDENTIFICATION CLERK.SOBR nausea No 12/30/24 14:16 IDENTIFICATION CLERK.SOBR Vomiting No 12/30/24 14:16 IDENTIFICATION CLERK.SOBR Anesthesia Postop Eval I: Fluid Summary Crystalloid volume administer 500 12/30/24 14:16 IDENTIFICATION CLERK.SOBR (ml) Colloids volume administered ( ml) Blood Product volume administered (ml) Total IV fluid infused 500 12/30/24 14:16 IDENTIFICATION CLERK.SOBR Anesthesia Postop Eval I: Summary Notes Anesthesia Complication No 12/30/24 14:16 IDENTIFICATION CLERK.SOBR Anesthesia Complication Comment: Post-operative progress note Anesthesia: Postop Eval II Evaluation Mental status: Awake and Calm Pain Level: 2 nausea: No Vomiting: No Complications Anesthesia Complication: No 12/30/24 1828 <Electronically signed by Donta sosa MD> Date _ Donta Mcmillan MD Cosigner Signature: Date CC: ~ Signed [facility] Work Phone: [phone]) 977-788405-12-2025 Progress note Author [facility]y [facility] Note Date/Time December 30, 2024 5:23p [facility] Medical Records Department [address] [place] [address] Progress Note 12/30/241714 MR#: [id number] Acct: [id number] Name: LESLI ROSALES Jose Alberto Rep #:[id number] : 1940 84 From: Goldy Warren DO PCP: NISA GUTHRIE Status:ADM IN Location: [facility] ZZ554-0 Subjective Subjective Patient was seen and examined [...] kyphoplasty of the L2 vertebrae. Reading Location: [facility] Physical Exam Const alert, oriented x3 and [...] cystitis-patient has completed antibiotic treatment #3 paroxysmal O-rze-ewtuyrh continues on atenolol, Xarelto was held due to patient's kyphoplasty #4 osteoporosis-patient continues on vitamin D and calcium supplements #5 acute debility secondary to burst fracture of L2-PT OT will continue to see the patient, she may need temporary placement in the longterm facility for rehab services. [facility] has accepted the patient if she decides she needs further rehab services as an inpatient. Total clinical time spent by myself addressing patient's medical issues, reviewing all her data, and collaborating with patient's care team: 35 minutes Charges/Coding Visit Charges Inpatient E&M: 67129 Subs Hosp L2 12/30/24 1723 <Electronically signed by Goldy Warren DO> Goldy Warren DO Cosigner Signature (if applicable): CC: ~ Signed [facility] Work Phone: [phone]) 793-629905-12-2025 Consult note [facility] Medical Records Department [address] [place] [address] Anesthesia Postop Eval II 12/30/24 1828 MR#: [id number] Acct: [id number] Name: LESLI ROSALES Rep #:[id number] : 1940 84 From: Donta Mcmillan MD PCP: NISA GUTHRIE Status:ADM IN Y Race: C Location: [address] Anesthesia Postop Eval I Sum Postop Eval Completion status Anesthesia document: Postop Eval 1 completed: Yes Anesthesia Postop Eval I Summary Anesthesia Postop Eval I Summary: Anesthesia Postop Eval I: Assessment Summary Airway patent No 12/30/24 14:16 IDENTIFICATION CLERK.[email or web address] Spontaneous unlabored No 12/30/24 14:16 IDENTIFICATION CLERK.SOBR respirations Mental status Awake 12/30/24 14:16 IDENTIFICATION CLERK.SOBR nausea No 12/30/24 14:16 IDENTIFICATION CLERK.SOBR Vomiting No 12/30/24 14:16 IDENTIFICATION CLERK.SOBR Anesthesia Postop Eval I: Fluid Summary Crystalloid volume administer 500 12/30/24 14:16 IDENTIFICATION CLERK.SOBR (ml) Colloids volume administered ( ml) Blood Product volume administered (ml) Total IV fluid infused 500 12/30/24 14:16 IDENTIFICATION CLERK.SOBR Anesthesia Postop Eval I: Summary Notes Anesthesia Complication No 12/30/24 14:16 IDENTIFICATION CLERK.SOBR Anesthesia Complication Comment: Post-operative progress note Anesthesia: Postop Eval II Evaluation Mental status: Awake and Calm Pain Level: 2 nausea: No Vomiting: No Complications Anesthesia Complication: No 12/30/24 1828 sheila POLANCO> Date _ Donta Mcmillan MD Cosigner Signature: Date CC: ~ Signed [facility]05-12-2025 Progress note [facility] Medical Records Department [address] [facility] [place] [address] Progress Note 12/30/24 1715 MR#: [id number] Acct: [id number] Name: LESLI ROSALES Jose Alberto Rep #:[id number] : 1940 84 From: Goldy Warren DO PCP: NISA GUTHRIE Status:ADM IN Location: [place] [address] Subjective Subjective Patient was seen and examined [...] Balance 400 / 500 100 / 100 10 / 10 Lab / Micro Data 12/29/24 05:05 12/29/24 05:05 Micro: Microbiology 12/24/24 22:25 Urine, Clean Catch Urine Culture - Final Escherichia coli Proteus mirabilis Radiography Diagnostic Testing: Radiology Impression Lumbar Spine X-Ray 12/30/24 13:12 IMPRESSION: Intraoperative imaging provided for kyphoplasty of the L2 vertebrae. Reading Location: [facility] Physical Exam Const alert, oriented x3 and [...] cystitis-patient has completed antibiotic treatment #3 paroxysmal M-yfg-leydqlu continues on atenolol, Xarelto was held due to patient's kyphoplasty #4 osteoporosis-patient continues on vitamin D and calcium supplements #5 acute debility secondary to burst fracture of L2-PT OT will continue to see the patient, she mayneed temporary placement in the longterm facility for rehab services. [facility] patient if she decides she needs further rehab services as an inpatient. Total clinical time spent by myself addressing patient's medical issues, reviewing all her data, and collaborating with patient's care team: 35 minutes Charges/Coding Visit Charges Inpatient E&M: 63411 Subs Hosp L2 12/30/24 1723 Goldy Warren Cosigner Signature (if applicable): CC: ~ Signed [facility]05-12-2025 Radiology Diagnostic study note [facility] Imaging Services [address] [place], [place] [address] Lumbar Spine 2 or 3 Views MR#: [id number] Acct: [id number] Name: LESLI ROSALES Rep #: [id number] : 1940 F 84 From: Kristian Solis MD PCP: NISA GUTHRIE Status: ADM IN Study:Lumbar Spine 2 or 3 Views Date of Exam: 12/30/24 Exam# [id number] Ordering Dr: Kelsey Malagon MD PROCEDURE: Kyphoplasty [...] kyphoplasty of the L2 vertebrae. Reading Location: [place] CC: Dr. Mike Malagon MD; NISA GUTHRIE ~ Coat Baster: Signed [facility]05-12-2025 Consult note Author Donta Mcmillan [facility] Note Date/Time December 30, 2024 12:45 pm [facility] Medical Records Department [address] [place] [address] Pre-Anesthesia Evaluation 12/30/24 1220 MR#: [id number] Acct: [id number] Name: LESLI ROSALES Rep #:[id number] : 1940 84 From: Donta Mcmillan MD PCP: NISA GUTHRIE Status:ADM IN Y Race: C [facility]* ASA Classification ASA Classification: 3 [...] 12/28/24 TSH 1.160 uIU/mL (0.300-4.200) 12/24/24 16:20 0502/12 COAG PT 18.8 SECONDS (11.7-14.9) H 11/18/24 02:55 10/21 09/14 Pre-Assessment Diagnosis/Proposed Procedure Planned Operative Procedure(s): Kyphoplasty Anesthesia History Anesthesia History - beverage host: Anesthesia History - beverage host Hx Hospitalization Any Problems With Anesthesia No [...] take am of surgery PONV PONV - beverage host: PONV - beverage host Female HX of Motion Sickness HX of N/V After Surgery Non-Smoker Duration of Surgery greater than 60 minutes Number of Risk Factors PONV Score Height & Weight Height & Weight: Anesthesia: Height & Weight Height 4 ft 11.84 in 12/30/24 10:43 Weight: 64.3 kg 12/30/24 10:43 Body Mass Index (BMI) 27.8 12/30/24 10:43 Respiratory Assessment Respiratory Assessment - beverage host: Respiratory Tract Infection Hx - beverage host Hx Respiratory Tract Infection Yes: pneumonia 12/29/24 19:49 Any additional information?: Yes Hx Respiratory Tract Infection: Yes (Pneumonia was back in August. She is now clear.) STOP Sleep Apnea STOP Sleep Apnea - beverage host: STOP Sleep Apnea - beverage host Hx Hypertension Yes 12/25/24 13:07 Hx Sleep [...] Tobacco Use History Tobacco Use History - beverage host: Tobacco Use History - beverage host Tobacco Use Smoking Status Former smoker 12/24/24 21:20 Hx Tobacco Use No 12/24/24 21:20 Years Smoking Packs Smoked per Day Smoking Cessation Date was No - quit smoking greater 12/24/24 21:20 within the last 15 years than 15 years ago Hx Smoking Cessation Date 08/21/75 12/24/24 21:20 Hx Smoking Cessation Counseling Hematologic Medial History Hematologic Hx - beverage host: Hematologic Medical Hx - 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 Hx of Blood Transfusion No 12/24/24 21:20 [...] confused, unrespo /Reproduction History /Reproductive History - beverage host: /Reproductive Hx- beverage host Hx Now No 12/29/24 19:49 Gestational Age [...] mls @ 15 mls/hr 12/24/24 20:58 IV .H10G29M PRN Saline Flush Lactated Ringer's 1,000 mls @ 15 mls/hr 12/30/24 12:00 12/30/24 11:59 IV 15 mls/hr .Q48H [facility] Administration Ipratropium Steens 0.5 mg 12/24/24 21:15 Ipratropium 0.5 Mg/2.5 Ml Solution INHALATION Q6H PRN PRN shortness of breath Lidocaine 2 patch 12/25/24 10:00 12/29/24 08:53 Lidocaine 5% Patch TOPICAL 2 patch DAILY [facility] Administration Protocol Magnesium Hydroxide 30 ml 12/24/24 [...] Powder 15gm Bottle TOPICAL 1 applic BID [facility] Administration Protocol Ondansetron HCl 4 mg 12/24/24 [...] 17 Gm Packet PO Not Given DAILY [facility] Promethazine HCl 12.5 mg 12/24/24 20:57 Promethazine 25 Mg/Ml Syringe IM Q6H PRN PRN Breakthrough nausea/vomiting Rivaroxaban 20 mg 12/25/24 10:00 Rivaroxaban 20 Mg Tablet PO DAILY [facility] Senna/Docusate Sodium 2 tablet 12/25/24 07:32 12/28/24 [...] MD Cosigner Signature: Date CC: ~ Signed [facility] Work Phone: 1(606) 182-958105-12-2025 Procedure note [facility] Medical Records Department [address] [place] [address] Operative Report 12/30/24 1410 MR#: [id number] Acct: [id number] Name: LESLI ROSALES Rep #:[id number] : 1940 84 From: Mike Malagon MD PCP: NISA GUTHRIE Status:ADM IN [facility] Procedures Musculoskeletal 20xxx-29xxx: Other Procedure See Report Operative Report (Standard) Operative Information Date of Procedure: 12/30/24 Pre-Operative Diagnosis: L2 pathologic burst fracture Post-Operative Diagnosis: Same Surgery/Procedure Performed: L2 kyphoplasty cadd manager: No Type of Anesthesia: General RN Documented [...] of surgery: ATTENDING SURGEON: Mike Malagon MD CALL CENTER MANAGER: none PREOPERATIVE DIAGNOSIS: L2 pathologic burst fracture POSTOPERATIVE DIAGNOSIS: Same PROCEDURE PERFORMED: L2 kyphoplasty CPT 01084 INDICATIONS FOR THE PROCEDURE: The patient is [...] cement setting. Jamshidi needles were then removed. Steri-Strips were applied along with 4 x 4 [...] Kevin Caballero DO; Dr. Sveta Macias DO; NISA GUTHRIE~ Signed [facility]05-12-2025 Progress note Author [facility] Note Date/Time December 30, 2024 12:09 pm [facility] Medical Records Department [address] [place] [address] Progress Note - Orthopedic 12/30/24 1205 MR#: [id number] Acct: [id number] Name: LESLI ROSALES Rep #:[id number] : 1940 84 From: Mike Malagon MD PCP: NISA GUTHRIE Status:ADM IN Location: [place] YR248-5 Subjective Subjective Saw patient in preop. Continues [...] was signed. Charges/Coding Visit Charges Inpatient E&M: 29356 Subs Hosp L3 12/30/24 1209 <Electronically signed by Mike Malagon MD> Cosigner Signature (if applicable): CC: ~ Signed [facility] Work Phone: 1(691) 226-136205-12-2025 Consult note [facility] Medical Records Department [address] [place] [address] Pre-Anesthesia Evaluation 12/30/24 1220 MR#: [id number] Acct: [id number] Name: LESLI ROSALES Rep #:[id number] : 1940 84 From: Donta Mcmillan MD PCP: NISA GUTHRIE Status:ADM IN Y Race: C Location: [place] MS306 -1 ASA Classification* ASA Classification ASA [...] PT 18.8 SECONDS (11.7-14.9) H 11/18/24 02:55 03/3 09/14 Pre-Assessment Diagnosis/Proposed Procedure Planned Operative Procedure(s): Kyphoplasty Anesthesia History Anesthesia History - beverage host: Anesthesia History - beverage host Hx Hospitalization Any Problems With Anesthesia No [...] take am of surgery PONV PONV - beverage host: PONV - beverage host Female HX of Motion Sickness HX of N/V After Surgery Non-Smoker Duration of Surgery greater than 60 minutes Number of Risk Factors PONV Score Height & Weight Height & Weight: Anesthesia: Height & Weight Height 4 ft 11.84 in 12/30/24 10:43 Weight: 64.3 kg 12/30/24 10:43 Body Mass Index (BMI) 27.8 12/30/24 10:43 Respiratory Assessment Respiratory Assessment - beverage host: Respiratory Tract Infection Hx - beverage host Hx Respiratory Tract Infection Yes: pneumonia 12/29/24 19:49 Any additional information?: Yes Hx Respiratory Tract Infection: Yes (Pneumonia was back in August. She is now clear.) STOP Sleep Apnea STOP Sleep Apnea - beverage host: STOP Sleep Apnea - beverage host Hx Hypertension Yes 12/25/24 13:07 Hx Sleep [...] Tobacco Use History Tobacco Use History - beverage host: Tobacco Use History - beverage host Tobacco Use Smoking Status Former smoker 12/24/24 21:20 Hx Tobacco Use No 12/24/24 21:20 Years Smoking Packs Smoked per Day Smoking Cessation Date was No - quit smoking greater 12/24/24 21:20 within the last 15 years than 15 years ago Hx Smoking Cessation Date 08/21/75 12/24/24 21:20 Hx Smoking Cessation Counseling Hematologic Medial History Hematologic Hx - beverage host: Hematologic Medical Hx - 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 Hx of Blood Transfusion No 12/24/24 21:20 [...] confused, unrespo /Reproduction History /Reproductive History - beverage host: /Reproductive Hx- beverage host Hx Now No 12/29/24 19:49 Gestational Age [...] 25 Mg Tablet PO 25 mg DAILY [facility] Administration Protocol Calamine/Phenol 1 applic 12/24/24 22:00 [...] mls @ 15 mls/hr 12/24/24 20:58 IV .[id number] PRN Saline Flush Lactated Ringer's 1,000 mls @ 15 mls/hr 12/30/24 12:00 12/30/24 11:59 IV 15 mls/hr .Q48H SUKHJINDER Administration Ipratropium Steens 0.5 mg 12/24/24 21:15 Ipratropium 0.5 Mg/2.5 [...] Powder 15gm Bottle TOPICAL 1 applic BID [facility] Administration Protocol Ondansetron HCl 4 mg 12/24/24 [...] 10:00 Rivaroxaban 20 Mg Tablet PO DAILY [facility] Senna/Docusate Sodium 2 tablet 12/25/24 07:32 12/28/24 [...] mg tablet 20 mg PO DAILY 06/26/21 0502/12 History folic acid 1 mg tablet 1 [...] MD Cosigner Signature: Date CC: ~ Signed [facility]05-12-2025 Progress note [facility] Medical Records Department [address] [place] [address] Progress Note - Orthopedic 12/30/24 1205 MR#: [id number] Acct: [id number] Name: LESLI ROSALES Rep #:[id number] : 1940 84 From: Mike Malagon MD PCP: NISA GUTHRIE Status:ADM IN Location: [facility] HD834-7 Subjective Subjective Saw patient in preop. Continues [...] was signed. Charges/Coding Visit Charges Inpatient E&M: 47330 Subs Hosp L3 12/30/24 1207 Cosigner Signature (if applicable): CC: ~ Signed [facility]05-11-2025 Progress note Author Sveta Macias [facility] Note Date/Time December 29, 2024 12:36 pm [facility] Medical Records Department [address] [place] [address] Progress Note - Hospitalist 12/29/2425 MR#: [id number] Acct: [id number] Name: LESLI ROSALES Rep #:[id number] : 1940 84 From: Sveta Macias DO PCP: NISA GUTHRIE Status:ADM IN Location: [facility] YK543-1 Reason for Visit Reason for Visit: Intractable [...] signal with diffuse marrow replacement in the T3uuprxkqzq body, large left periaortic lymph node and [...] for the Avenues--> anticipate Monday-- - case manager specialist consulted PAF - Rivaroxaban on hold due [...] -Full code Charges/Coding Visit Charges Inpatient E&M: 95279 Subs Hosp L2 12/29/24 1236 <Electronically signed by Sveta Macias DO> Cosigner Signature (if applicable): CC: ~ Signed [facility] Work Phone: 1(403) 781-987705-11-2025 Progress note [facility] Medical Records Department [address] [place] [address] Progress Note - Hospitalist 12/29/24 0725 MR#: [id number] Acct: [id number] Name: LESLI ROSALES Rep #:[id number] : 1940 84 From: Sveta Macias DO PCP: NISA GUTHRIE Status:ADM IN Location: [facility] CE975-7 Reason for Visit Reason for Visit: Intractable [...] signal with diffuse marrow replacement in the T7fwlfbncdt body, large left periaortic lymph node and [...] for the Avenues--> anticipate Monday-- - case manager specialist consulted PAF - Rivaroxaban on hold due [...] -Full code Charges/Coding Visit Charges Inpatient E&M: 70599 Subs Hosp L2 12/29/24 1236 Cosigner Signature (if applicable): CC: ~ Signed [facility]05-10-2025 Progress note Author Sveta Macias [facility] Note Date/Time December 28, 2024 1:20p m [facility] Medical Records Department [address] [place] [address] Progress Note - Hospitalist 12/28/24 0816 MR#: [id number] Acct: [id number] Name: LESLI ROSALES Rep #:[id number] : 1940 84 From: Sveta Macias DO PCP: NISA GUTHRIE Status:ADM IN Location: [facility] YL155-8 Reason for Visit Reason for Visit: Back [...] changes lumbar spine as described. Reading Location: [facility] Physical Exam Const alert, oriented x3, no [...] signal with diffuse marrow replacement in the M4tawdwmrhq body, large left periaortic lymph node and [...] Avenue on Monday> after procedure - case manager specialist consulted PAF - Rivaroxaban on hold due [...] -Full code Charges/Coding Visit Charges Inpatient E&M: 54976 Subs Hosp L1 12/28/24 1320 <Electronically signed by Sveta Macias DO> Cosigner Signature (if applicable): CC: ~ Signed [facility] Work Phone: 1(406) 889-525505-10-2025 Progress note [facility] Medical Records Department [address] [place] [address] Progress Note - Hospitalist 12/28/24815 MR#: [id number] Acct: [id number] Name: LESLI ROSALES Rep #:[id number] : 1940 84 From: Sveta Macias DO PCP: NISA GUTHRIE Status:ADM IN Location: [facility] ZJ961-1 Reason for Visit Reason for Visit: Back [...] Diagnostic Testing: Radiology Impression Lumbar Spine X-Ray 05/09/25 10:30 IMPRESSION: 1. Moderate compression deformity of L2 vertebral body. 2. Grade 1 anterior spondylolisthesis of L5 on S1 by 1.4 cm. 3. Degenerative changes lumbar spine as described. Reading Location: [facility] Physical Exam Const alert, oriented x3, no [...] signal with diffuse marrow replacement in the A4mibtsyhxe body, large left periaortic lymph node and [...] Avenue on Monday> after procedure - case manager specialist consulted PAF - Rivaroxaban on hold due [...] -Full code Charges/Coding Visit Charges Inpatient E&M: 47529 Subs Hosp L1 12/28/24 1320 Cosigner Signature (if applicable): CC: ~ Signed [facility]05-09-2025 Progress note Author Amairani Choudhary [facility] Note Date/Time December 27, 2024 12:23p m [facility] Medical Records Department [address] [place] [address] Progress Note - Orthopedic 12/27/24 1103 MR#: [id number] Acct: [id number] Name: LESLI ROSALES Rep #:[id number] : 1940 84 From: Amairani Choudhary LITHOGRAPHING MACHINE OPERATORPageC PCP: NISA GUTHRIE Status:ADM IN Location: [facility] GF247-3 Subjective Subjective LESLI ROSALES, is a pleasant [...] OT as ordered Social work working with PA planning per [facility] local [facility], anticipatedischarge 12/30/[address] Malagon who will follow up regarding today's lumbar film x-ray findings and will follow up regarding risk benefits of kyphoplasty and/or any other interventions. This document has been transcribed using [employer] dictation software. There may beincorrect words, spelling, and punctuation. Charges/Coding Visit Charges Inpatient E&M: 14827 Subs Hosp L3 12/27/24 1223 <Electronically signed by Amairani NIELSEN> Cosigner Signature (if applicable): CC: ~ Signed [facility] Work Phone: 1(664) 714-541105-09-2025 Progress note Author Sveta Macias [facility] Note Date/Time December 27, 2024 12:18p m [facility] Medical Records Department [address] [place] [address] Progress Note - Hospitalist 12/27/24 0743 MR#: [id number] Acct: [id number] Name: LESLI ROSALES Rep #:[id number] : 1940 84 From: Sveta Macias DO PCP: NISA GUTHRIE Status:ADM IN Location: [place] RW737-0 Reason for Visit Reason for Visit: Intractable [...] Catch Urine Culture - Preliminary GNR lactose it consultant Gram negative estela Physical Exam Const alert, [...] signal with diffuse marrow replacement in the O9bipcotimz body, large left periaortic lymph node and [...] -Case management is sending referral to the [facility] - case manager specialist consulted PAF - Rivaroxaban on hold due [...] -Full code Charges/Coding Visit Charges Inpatient E&M: 01398 Subs Hosp L2 12/27/24 1218 <Electronically signed by Sveta Macias DO> Cosigner Signature (if applicable): CC: ~ Signed [facility] Work Phone: 1(772) 530-183605-09-2025 Progress note [facility] Medical Records Department [address] [place] [address] Progress Note - Orthopedic 12/27/24 1103 MR#: [id number] Acct: [id number] Name: LESLI ROSALES Rep #:[id number] : 1940 84 From: Amairani Choudhary LITHOGRAPHING MACHINE OPERATOR-C PCP: NISA GUTHRIE Status:ADM IN Location: [place] AH633-4 Subjective Subjective LESLI ROSALES, is a pleasant [...] OT as ordered Social work working with PA planning [facility], anticipatedischarge 12/30/[address] Malagon who will follow up regarding today's lumbar film x-ray findings and will follow up regarding risk benefits of kyphoplasty and/or any other interventions. This document has been transcribed using [employer] dictation software. There may beincorrect words, spelling, and punctuation. Charges/Coding Visit Charges Inpatient E&M: 98523 Subs Hosp L3 12/27/24 1223 Cosigner Signature (if applicable): CC: ~ Signed [facility]05-09-2025 Progress note [facility] Medical Records Department [address] [place] [address] Progress Note - Hospitalist 12/27/24 0743 MR#: [id number] Acct: [id number] Name: LESLI ROSALES Rep #:[id number] : 1940 84 From: Sveta Macias DO PCP: NISA GUTHRIE Status:ADM IN Location: [facility] YO755-7 Reason for Visit Reason for Visit: Intractable [...] Catch Urine Culture - Preliminary GNR lactose it consultant Gram negative estela Physical Exam Const alert, [...] signal with diffuse marrow replacement in the W3tkpxyvdsa body, large left periaortic lymph node and [...] -Case management is sending referral to the [facility] - case manager specialist consulted PAF - Rivaroxaban on hold due [...] -Full code Charges/Coding Visit Charges Inpatient E&M: 53647 Subs Hosp L2 12/27/24 1218 Cosigner Signature (if applicable): CC: ~ Signed [facility]05-09-2025 Radiology Diagnostic study note [facility] Imaging Services [address] [place], [place] [address] Lumbar Spine 2 or 3 Views MR#: [id number] Acct: [id number] Name: LESLI ROSALES Rep #: [id number] : 1940 F 84 From: Susan Whitney MD PCP: NISA GUTHRIE Status: ADM IN Study:Lumbar Spine 2 or 3 Views Date of Exam: 12/27/24 Exam# [id number] Ordering Dr: Kelsey Malagon MD EXAM: XR [...] changes lumbar spine as described. Reading Location: [facility] CC: Dr. Mike Malagon MD; NISA GUTHRIE ~ Coat Baster: Signed [facility]05-08-2025 Consult note Author Mike Malagon [facility] Note Date/Time December 26, 2024 4:45pm [facility] Medical Records Department [address] [place] [address] Consultation - Orthopedics 12/26/24 1629 MR#: [id number] Acct: [id number] Name: LESLI ROSALES Rep #:[id number] : 1940 84 From: Mike Malagon MD PCP: NISA GUTHRIE Status:ADM IN Location: [facility] YF591-1 HPI Consult Data Date of Consult: 12/26/24 [...] knownprevious cancers. She denies any recent fevers. [facility] Medical History Anxiety Depression Chronic pain GERD [...] Catch Urine Culture - Preliminary GNR lactose it consultant Gram negative estela Assessment & Plan Assessment/Plan [...] done on 11/17/2024. The CT from October show an L3 compression fracture which is [...] questions answered. Charges/Coding Visit Charges Inpatient E&M: 53206 Init Hosp L3 12/26/24 1643 <Electronically signed by Mike Malagon MD> Cosigner Signature (if applicable): CC: Dr. Sveta Macias DO; NISA GUTHRIE~ Signed [facility] Work Phone: 1(331) 622-802805-08-2025 Consult note [facility] Medical Records Department [address] [place] [address] Consultation - Orthopedics 12/26/24 1626 MR#: [id number] Acct: [id number] Name: LESLI ROSALES Rep #:[id number] : 1940 84 From: Mike Malagon MD PCP: NISA GUTHRIE Status:ADM IN Location: [facility] BJ642-8 HPI Consult Data Date of Consult: 12/26/24 [...] knownprevious cancers. She denies any recent fevers. [facility] Medical History Anxiety Depression Chronic pain GERD [...] Catch Urine Culture - Preliminary GNR lactose it consultant Gram negative estela Assessment & Plan Assessment/Plan [...] questions answered. Charges/Coding Visit Charges Inpatient E&M: 20332 Init Hosp L3 12/26/24 1645 Cosigner Signature (if applicable): CC: Dr. Sveta Macias DO; NISA GUTHRIE~ Signed [facility]05-08-2025 Progress note Author Sveta Macias [facility] Note Date/Time December 26, 2024 12:09p [facility] Medical Records Department [address] [place] [address] Progress Note - Hospitalist 12/26/24 1203 MR#: [id number] Acct: [id number] Name: LESLI ROSALES Rep #:[id number] : 1940 84 From: Sveta Macias DO PCP: NISA GUTHRIE Status:ADM IN Location: [facility] BJ444-8 Reason for Visit Reason for Visit: Intractable [...] Catch Urine Culture - Preliminary GNR lactose it consultant Gram negative estela Radiography Diagnostic Testing: Radiology [...] 5. Additional description as above. Reading Location: [id number] Physical Exam Const alert, oriented x3, no [...] signal with diffuse marrow replacement in the B0elbeyvyrd body, large left periaortic lymph node and [...] likely need placement at discharge - case manager specialist consulted PAF - Rivaroxaban on hold due [...] -Full code Charges/Coding Visit Charges Inpatient E&M: 29418 Subs Hosp L2 12/26/24 1209 <Electronically signed by Sveta Macias DO> Cosigner Signature (if applicable): CC: ~ Signed [facility] Work Phone: 1(828) 872-122105-08-2025 Progress note [facility] Medical Records Department [address] [place] [address] Progress Note - Hospitalist 12/26/24 1203 MR#: [id number] Acct: [id number] Name: LESLI ROSALES Rep #:[id number] : 1940 84 From: Sveta Macias DO PCP: NISA GUTHRIE Status:ADM IN Location: [facility] RN004-9 Reason for Visit Reason for Visit: Intractable [...] Catch Urine Culture - Preliminary GNR lactose it consultant Gram negative estela Radiography Diagnostic Testing: Radiology [...] 5. Additional description as above. Reading Location: [facility] Physical Exam Const alert, oriented x3, [...] signal with diffuse marrow replacement in the I0wdrecunph body, large left periaortic lymph node and [...] likely need placement at discharge - case manager specialist consulted PAF - Rivaroxaban on hold due [...] -Full code Charges/Coding Visit Charges Inpatient E&M: 85171 Subs Hosp L2 12/26/24 1209 Cosigner Signature (if applicable): CC: ~ Signed [facility]05-07-2025 Progress note Author Sveta Macias [facility] Note Date/Time December 25, 2024 9:13pm [facility] Medical Records Department [address] [place] [address] Progress Note - Hospitalist 12/25/24 0739 MR#: [id number] Acct: [id number] Name: LESLI ROSALES Rep #:[id number] : 1940 84 From: Sveta Macias DO PCP: NISA GUTHRIE Status:ADM IN Location: [facility] UM485-5 Reason for Visit Reason for Visit: Intractable [...] % (Auto) 69.6, Lymph % (Auto) 20.6, Sauk % (Auto) 7.6, Eos % (Auto) 1.2, [...] Clarity Clear, Urine pH 5.0, Ur Specific Laurel 1.025, Urine Protein 30 H, Urine Glucose [...] % (Auto) 62.8, Lymph % (Auto) 24.4, Sauk % (Auto) 9.2, Eos % (Auto) 2.6, [...] Other nonacute findings detailed above. Reading Location: [facility] Chest X-Ray 12/24/24 16:25 IMPRESSION: 1. Cardiomegaly without overt pulmonary edema 2. Additional description as above. Reading Location: [facility] Physical Exam Const alert, oriented x3, [...] signal with diffuse marrow replacement in the W4mfxmumgif body, large left periaortic lymph node and [...] Will likely need placement at discharge -case manager specialist consulted PAF - Rivaroxaban on hold due [...] full code Charges/Coding Visit Charges Inpatient E&M: 04841 Subs Hosp L2 12/25/242112 <Electronically signed by Sveta Macias DO> Cosigner Signature (if applicable): CC: ~ Signed [facility] Work Phone: 1(784) 133-457605-07-2025 Progress note [facility] Medical Records Department [address] [place] [address] Progress Note - Hospitalist 12/25/24 0739 MR#: [id number] Acct: [id number] Name: LESLI ROSALES Rep #:[id number] : 1940 84 From: Sveta Macias DO PCP: NISA GUTHRIE Status:ADM IN Location: [facility] FQ439-3 Reason for Visit Reason for Visit: Intractable [...] 12/25/24 02:11 12/25/24 02:11 12/25/24 02:11 12/25/24 02:12/25/24 02:11 12/25/24 02:11 12/25/24 02:11 Oxygen Flow [...] % (Auto) 69.6, Lymph % (Auto) 20.6, Sauk % (Auto) 7.6, Eos % (Auto) 1.2, [...] Clarity Clear, Urine pH 5.0, Ur Specific Laurel 1.025, Urine Protein 30 H, Urine Glucose [...] % (Auto) 62.8, Lymph % (Auto) 24.4, Sauk % (Auto) 9.2, Eos % (Auto) 2.6, [...] 2. Additional description as above. Reading Location: [facility] Physical Exam Const alert, oriented x3, [...] signal with diffuse marrow replacement in the D9zncqorgjx body, large left periaortic lymph node and [...] Will likely need placement at discharge -case manager specialist consulted PAF - Rivaroxaban on hold due [...] full code Charges/Coding Visit Charges Inpatient E&M: 62745 Subs Hosp L2 12/25/242112 Cosigner Signature (if applicable): CC: ~ Signed [facility]05-07-2025 History and physical note Author Kevin Naidu [facility] Note Date/Time December 25, 2024 6:54am [facility] Medical Records Department [address] [facility] [place] [address] H&P Exam - Hospitalist 12/24/241917 MR#: [id number] Acct: [id number] Name: CONNIELESLI Abrams Rep #:[id number] : 1940 84 From: Kevin Benito DO PCP: NISA GUTHRIE Status:ADM IN Location: [facility] BG881-0 HPI - General General Date of Admission: 12/24/24 Date of Service: 12/24/24 Chief Complaint: Severe Back Pain. HPI Narrative LESLI CONNIE, is a 84 F with a past [...] [facility] secondary to pneumonia complicated by acute hypoxia, acute metabolic encephalopathy and AE CHF with elevated NT pro-BNP II of ~22K and elevated troponin of 482 pg/mL attributed to acute cardiac strain from septic shock compounded by NAT and acute transaminitis due to shock liver resulting in severe physical deconditioning with patient discharged to longterm facility in [place] for subacute rehabilitation who now re-presents to [facility] ER complaining of severe back pain. Ms. Rosales reports she has had chronic back pain for the past 5 months which was made worse after her had had fallen backward twice in August 2024 and she tried to help assist him in getting up with pain since that time. She then apparently drove herself to [facility] where she had a CT scan of the spine which showed no acute fractures at that time and she was placed on analgesics. Unfortunately, her symptoms have only worsened since that time withpain worse with movement, severe, sharp and radiating into both hips. Accordingto the ER physician patient apparently discharged herself from her [facility] on December 09, 2024 after her [...] is expected to extend beyond 2 midnights. [facility] Medical History Anxiety Depression Chronic pain GERD [...] results. Lab results narrative: RUN DATE: 12/25/24 [facility], DEPARTMENT OF LABORATORIES PAGE 1 RUN TIME: 0216 Specimen Inquiry [address], [place], [address] PATIENT: LESLI ROSALES LOC: MS3 U #: [id number] : 1940 AGE/SX: 84/F FACILITY: [facility] ROOM: [facility] RE12/24/[address]: Chance Johnson STATUS:ADM IN ED: 1 DIS: ~ SPEC #: [id number] PAMELA: 12/24/24 STATUS: COMP REQ #: [id number] RECD: 12/24/[address]: Dr. Oskar Camargo MD ENTERED: 12/24/24-[address] [facility] [address]: NISA GUTHRIE ~ COMMENTS: COLOR OF URINE MAY [...] % (Auto) 69.6, Lymph % (Auto) 20.6, Sauk % (Auto) 7.6, Eos % (Auto) 1.2, [...] 2. Additional description as above. Reading Location: [facility] Assessment & Plan Assessment/Plan (1) Acute cystitis [...] to claustrophobia. Give acetaminophen as needed for kdoe-kw-egttydzn (level 1-5/10) pain or fever. Give morphine [...] severe physical deconditioning with patient discharged to longterm facility in [place] for subacute rehabilitation compounding #1 - #3 [...] 75 minutes. Charges/Coding Visit Charges Inpatient E&M: 80316 Init Hosp 12/25/24 0654 <Electronically signed by Kevin Caballero DO> Cosigner Signature (if applicable): CC: Dr. Kevin Caballero, DO; NISA GUTHRIE~ Signed [facility] Work Phone: 1(968) 554-927605-07-2025 History and physical note [facility] Medical Records Department [address] [place] [address] H&P Exam - Hospitalist 12/24/241917 MR#: [id number] Acct: [id number] Name: LESLI ROSALES Rep #:[id number] : 1940 84 From: Kevin Benito DO PCP: NISA GUTHRIE Status:ADM IN Location: [facility] RJ712-0 HPI - General General Date of Admission: [...] recent admission here from November 17, 2024 toApr2024 for treatment of septic shock secondary to pneumonia complicated by acute hypoxia, acute metabolic encephalopathy and AE CHF with elevated NT pro-BNP II of ~22K and elevated troponin of 482 pg/mL attributed to acute cardiac strain from septic shock compounded by NAT and acute transaminitis due to shock liver resulting in severe physical deconditioning with patient discharged to longterm facility in [place] for suba cut rehabilitation who now re-presents to [facility] ER complaining of severe backpain. Ms. Rosales reports she has had chronic back pain for the past 5 months which was made worse afterher had had fallen backward twice in August 2024 and she tried to help assist him in getting up with pain since that time. She then apparently drove herself to [facility] where she had a CT scan of the spine which showed no acute fractures at that time and she was placed on analgesics. Unfortunately, her symptoms have only worsened since that time withpain worse with movement, severe,sharp and radiating into both hips. Accordingto the ER physician patient apparently discharged herself from her [facility] on December 09, 2024 after her [...] is expected to extend beyond 2 midnights. [facility] Medical History Anxiety Depression Chronic pain GERD [...] mg tablet (Xarelto) 20 mg PO DAILY 11/0 02/0812/24/24 History cholecalciferol (vitamin D3) 50 50 [...] results. Lab results narrative: RUN DATE: 12/25/24 [facility], DEPARTMENT OF LABORATORIES PAGE 1 RUN TIME: 215 Specimen Inquiry [address], [place], [address] PATIENT: LESLI ROSALES LOC: MS3 U #: [id number] : 1940 AGE/SX: 84/F FACILITY: [facility] ROOM: [facility] RE12/24/[address]: Chance Johnson STATUS:ADM IN ED: 1 DIS: ~ SPEC #: [id number] PAMELA: 12/24/24 STATUS: COMP REQ #: [id number] RECD: 12/24/[address]: Dr. Oskar Camargo MD ENTERED: 12/24/[address]: NISA GUTHRIE ~ COMMENTS: COLOR OF URINE MAY [...] % (Auto) 69.6, Lymph % (Auto) 20.6, Sauk % (Auto) 7.6, Eos % (Auto) 1.2, [...] 2. Additional description as above. Reading Location: [id number] Assessment & Plan Assessment/Plan (1) Acute cystitis [...] to claustrophobia. Give acetaminophen as needed for bdmj-lc-vsewowrw (level 1-5/10) pain or fever. Give morphine [...] severe physical deconditioning with patient discharged to longterm facility in [place] for subacute rehabilitation compounding #1 - #3 [...] 75 minutes. Charges/Coding Visit Charges Inpatient E&M: 14786 Init Hosp 12/25/24 0654 Cosigner Signature (if applicable): CC: Dr. Kevin Caballero, DO; NISA GUTHRIE~ Signed [facility]05-06-2025 Discharge summary Author Oskar Camargo [facility] Note Date/Time December 24, 2024 8:08pm [facility] Medical Records Department [address] [place] [address] Emergency Department Summary 12/24/24 MR#: [id number] Acct: [id number] Name: LESLI ROSALES Jose Alberto Rep #:[id number] : 1940 84 From: Oskar Camargo MD PCP: NISA GUTHRIE Status:REG ER Location: ED HPI History [...] At that time, she had gone to [facility] and was able to drive herself, and [...] floor. She was then transferred to a longterm facility/rehab closer to her daughter in [facility]. She was recently discharged from there on the , approximately 2 weeks ago. She states she has been having problems with mobility since then. She is unable to get up and use even a bedside commode secondary to pain. [facility] Medical History Anxiety Depression Chronic pain [...] that she will require placement in a longterm facility. I reviewed the laboratory work and [...] % (Auto) 69.6 Lymph % (Auto) 20.6 Sauk % (Auto) 7.6 Eos % (Auto) 1.2 [...] Other nonacute findings detailed above. [facility] X-Ray 12/24/24 16:25 IMPRESSION: 1. Cardiomegaly without overt pulmonary edema 2. Additional description as above. Reading Location: [id number] Discharge Plan Dx/Rx/DC Orders Clinical Impression: Back pain, Closed compression fracture of lumbosacral spine, Inability to perform activities of daily living, Unable to care for self Disposition Disposition: Acute Care [facility] What to do if you have Problems For any increased pain, shortness of breath, bleeding, nausea or vomiting, chestpain, or any unexpected problems, contact your Primary Care Provider. Call [facility] ([phone]) or report to the closest Emergency Room. Call 911 if necessary. 12/24/241935 <Electronically signed by Oskar Camargo MD> Cosigner Signature (if applicable): CC: NISA GUTHRIE ~ Signed ADDENDUM by Dr. Oskar Camargo MD on 12/24/24 at 1938 Additionally, EKG was obtained and interpreted by myself independently as atrialfibrillation is rate controlled at [address] changes. No STEMI. However, there is baseline artifact noted, but given her history, I do favor atrial fibrillation. 12/24/241937<Electronically signed by Oskar Camargo MD> Cosigner Signature (if applicable): cc: NISA GUTHRIE ~* Signed ADDENDUM by Dr. Oskar Camargo MD on 12/24/24 at 2007 Portion of the dictation that states marked scoliosis should actually read mild scoliosis/levo curvature. 12/24/242007<Electronically signed by Oskar Camargo MD> Cosigner Signature (if applicable): cc: NISA GUTHRIE ~* Signed [facility] Work Phone: 1(284) 756-952005-06-2025 Evaluation note* Diagnosis Onset Date Resolution Status Admit Date Compression fracture of L3 vertebra acute December 24, 2024 7: 55pm Status post kyphoplasty acute M ay 2024 7:55pm Abnormal finding on urinalysis inact petr December 24, 2024 7:55pm Acute cystitis with hematuria inacti ve December 24, 2024 7:55pm Ambulatory dysfunction inactive Ma y 2024 7:55pm Back pain inactive December 24, 2024 7:55pm Burst fracture of lumbar vertebra inactive December 24, 2024 7: 55pm Chronic anticoagulation inactive M ay 2024 7:55pm Closed compression fracture of lumbosacral spine inactive December 24, 2024 7:55pm Compression fracture of L2 inactive December 24, 2024 7:55pm Generalized weakness inactive December 24, 2024 7:55pm [...] Unable to care for self inactive M ay 2024 7:55pm Compression fracture of L3 vertebra acute January 14, 2025 1 0:23am Status post kyphoplasty acute M ay 2024 10:23am Acute cystitis without hematuria acu te March 08, 2025 10:32am Arthritis of left hip acute Feb 10:24am Compression fracture of L3 vertebra acute March 13, 2025 10:24am Low bone density acute February 10:24am Status post kyphoplasty acute J irlanda 2024 10:24am [facility] Work Phone: 1(223) 617-913105-06-2025 Discharge summary [facility] Medical Records Department [address] [place] [address] Emergency Department Summary 12/24/24 MR#: [id number] Acct: [id number] Name: LESLI ROSALES Rep #:[id number] : 1940 84 From: Oskar Camargo MD PCP: NISA GUTHRIE Status:REG ER Location: ED HPI History [...] At that time, she had gone to [facility] and was able to drive herself, and [...] floor. She was then transferred to a longterm facility/rehab closer to her daughter in [facility]. She was recently discharged from there on the , approximately 2 weeks ago. She states she has been having problems with mobility since then. She is unable to get up and use even a bedside commode secondary to pain. [facility] Medical History Anxiety Depression Chronic pain [...] that she will require placement in a longterm facility. I reviewed the laboratory work and [...] % (Auto) 69.6 Lymph % (Auto) 20.6 Sauk % (Auto) 7.6 Eos % (Auto) 1.2 [...] Other nonacute findings detailed above. Reading [facility] Chest X-Ray 12/24/24 16:25 IMPRESSION: 1. Cardiomegaly without overt pulmonary edema 2. Additional description as above. Reading Location: [id number] Discharge Plan Dx/Rx/DC Orders Clinical Impression: Back pain, Closed compression fracture of lumbosacral spine, Inability to perform activities of daily living, Unable to care for self Disposition Disposition: Acute Care [facility] What to do if you have Problems For any increased pain, shortness of breath, bleeding, nausea or vomiting, chestpain, or any unexpected problems, contact your Primary Care Provider. Call [facility] ([phone]) or report tothe closest Emergency Room. Call 911 if necessary. 12/24/241935 Cosigner Signature (if applicable): CC: NISA GUTHRIE ~ Signed ADDENDUM by Dr. Oskar Camargo MD on 12/24/24 at 1938 Additionally, EKG was obtained and interpreted by myself independently as atrialfibrillation is rate controlled at [address] changes. No STEMI. However, there is baseline artifact noted, but given her history, I do favor atrial fibrillation. 12/24/241937 Cosigner Signature (if applicable): cc: NISA GUTHRIE ~* Signed ADDENDUM by Dr. Oskar Camargo MD on 12/24/24 at 2008 Portion of the dictation that states marked scoliosis should actually read mild scoliosis/levo curvature. 12/24/242007 Cosigner Signature (if applicable): cc: NISA GUTHRIE ~* Signed [facility]05-06-2025 Radiology Diagnostic study note [facility] Imaging Services [address] [place] [address] Spine Lumbar without Contrast MR#: [id number] Acct: [id number] Name: LESLI ROSALES Rep #: [id number] : 1940 F 84 From: Bertha Balderas MD PCP: NISA GUTHRIE Status: REG ER Study:Spine Lumbar without Contrast Date of E xam: 12/24/24 Exam# [id number] Ordering Dr: Oskar Camargo MD PROCEDURE: SPINE [...] detailed above. Reading Location: SHIRA CC: Dr. Oskar Camargo MD; NISA GUTHRIE ~ Coat Baster: Signed [facility]05-06-2025 Radiology Diagnostic study note [facility] Imaging Services [address] [place], [place] [id number] Chest 1 View (Portable) MR#: [id number] Acct: [id number] Name: LESLI ROSALES Rep #: [id number] : 1940 F 84 From: Susan Estrella MD PCP: NISA GUTHRIE Status: [facility] Study:Chest 1 View (Portable) Date of Exam: 12/24/24 Exam# [id number] Ordering Dr: Oskar Camargo MD PROCEDURE: CHEST [...] 2. Additional description as above. Reading Location: [id number] CC: Dr. Oskar Camargo MD; NISA GUTHRIE ~ Coat Baster: Signed [facility]05-06-2025 Discharge summary Author Oskar Camargo [facility] Note Date/Time December 24, 2024 8:08pm [facility] Medical Records Department [address] [place] [address] Emergency Department Summary 12/24/24 MR#: [id number] Acct: [id number] Name: LESLI ROSALES Rep #:[id number] : 1940 84 From: Oskar Camargo MD PCP: NISA GUTHRIE Status:REG ER Location: ED HPI History [...] At that time, she had gone to [facility] and was able to drive herself, and [...] floor. She was then transferred to a longterm facility/rehab closer to her daughter in [facility]. She was recently discharged from there on the , approximately 2 weeks ago. She states she has been having problems with mobility since then. She is unable to get up and use even a bedside commode secondary to pain. [facility] Medical History Anxiety Depression Chronic pain [...] that she will require placement in a longterm facility. I reviewed the laboratory work and [...] % (Auto) 69.6 Lymph % (Auto) 20.6 Sauk % (Auto) 7.6 Eos % (Auto) 1.2 [...] 2. Additional description as above. Reading Location: [id number] Discharge Plan Dx/Rx/DC Orders Clinical Impression: Back pain, Closed compression fracture of lumbosacral spine, Inability to perform activities of daily living, Unable to care for self Disposition Disposition: [facility] What to do if you have Problems For any increased pain, shortness of breath, bleeding, nausea or vomiting, chestpain, or any unexpected problems, contact your Primary Care Provider. Call [facility] ([phone]) or report to the closest Emergency Room. Call 911 if necessary. 12/24/241935 <Electronically signed by Oskar Camargo MD> Cosigner Signature (if applicable): CC: NISA GUTHRIE ~ Signed ADDENDUM by Dr. Oskar Camargo MD on 12/24/24 at 193 Additionally, EKG was obtained and interpreted by myself independently as atrialfibrillation is rate controlled at [address] changes. No STEMI. However, there is baseline artifact noted, but given her history, I do favor atrial fibrillation. 12/24/241937<Electronically signed by Oskar Camargo MD> Cosigner Signature (if applicable): cc: NISA GUTHRIE ~* Signed ADDENDUM by Dr. Oskar Camargo MD on 12/24/24 at 2007 Portion of the dictation that states marked scoliosis should actually read mild scoliosis/levo curvature. 12/24/242007<Electronically signed by Oskar Camargo MD> Cosigner Signature (if applicable): cc: NISA GUTHRIE ~* Signed [facility] Work Phone: 1(348) 111-440304-21-2025 History of Present illness Narrative* Hannah Luciano PA-C - 12/09/2024 8:13 PM EDT Progress Note Facility: [facility] Subjective Chief complaint: Lesli Rosales is a [...] treatments as listed in EMR Scribe Attestation I,Carlos Hartman attest that this documentation has been prepared [...] plan. Hannah Luciano PA-C [facility] History of Present illness Narrative* Keerthi Cuba [...] HTN, A-fib, COPD, GERD, MARIO, MDD, CHF, "compound spinal fracture". Continuous O2 maintained. Sats stable. Tolerating aerosol [...] of severe mid back pain History of "compound spinal fracture" 2023 Tylenol lidocaine patch Tramadol Therapy Other Weakness Continue therapy Medication, treatments and labs reviewed Continue medications and treatments as listed in EMR Keerthi Cuba APRN.RN HEMODIALYSIS documented in this encounterC[facility]04-11-2025 History of Present illness Narrative* Romitanja Keerthi - 11/29/2024 9:13 PM EDT Progress Note Facility: [facility] Subjective Chief complaint:Lesli Rosales is a 84 year old female who is an acute skilled patient being seen and evaluated for weakness HPI: 11/29/2024. Patient is a newer admission, admitted for therapy s/p IPA for PNA, UTI and sepsis. PMH includes HTN, A-fib, COPD, GERD, MARIO, MDD, CHF, "compound spinal fracture". Continuous O2 maintained. Sats stable. Tolerating aerosol [...] sciatica States being told she has a "compound spinal fracture" 2023 Tylenol lidocaine patch Therapy Medication, treatments and labs reviewed Continue medications and treatments as listed in EMR Keerthi Cuba APRN.RN HEMODIALYSIS documented in this encounterC[facility]04-10-2025 Telephone encounter Note * Telephone Encounter - Nichelle Powell - 11/28/2024 5:22 PM EDT We have been unable to reach your patient to schedule their testing. Test Name: echo 1st Attempt: 11/28 spoke with patient will call us to schedule [id number] Miscellaneous Notes* Telephone Encounter - Nichelle Powell - 11/28/2024 5:22 PM EDT We have been unable to reach your patient to schedule their testing. Test Name: echo 1st Attempt: 11/28 spoke with patient will call us to schedule documented in this encounterSOhio State East [id number] History of Present illness Narrative* Isaias Keith DO - 11/26/2024 4:47 PM EDT History and Physical Facility: [facility] Subjective Chief Complaint: Lesli Rosales is a 84 year oldfemale who is a acute skilled care patient being seen and evaluated for multiple problems. Patient presents for admission into longterm facility. HPI: Patient is an 84-year-old female [...] Discussed with nursing and therapy Scribe Attestation I, Juanpablo Northup , Scribe attest that this documentation has been [...] plan. Isaias Keith DO documented in this encounterC[facility]04-06-2025 Discharge summary Author Kevin Robles [facility] Note Date/Time November 24, 2024 8:52 am [facility] Medical Records Department [address] [facility] [place] [address] Discharge Summary 11/24/24 0851 MR#: [id number] Acct: [id number] Name: LESLI ROSALES Rep #:[id number] : 1940 84 From: Kevin Robles MD PCP: NISA GUTHRIE Status:ADM IN [facility] Prov[facility] Date of Admission: 11/17/24 Date of Discharge: 11/24/24 Primary Care Physician: NISA GUTHRIE Consultations 11/17/24 17:50 Consult: Caustic Room Attendant / Pulmonary Medicine Routine Consulting Provider: Intensivists/Pulmonary Med Reason for Consult: septic shock EMERGENT Consult: No MD Notified: No Date Notified: 11/17/24 Time Notified: 16:53 11/17/24 21:56 Consult: Caustic Room Attendant / Pulmonary Medicine Routine Consulting Provider: Intensivists/Pulmonary [...] ? Requested for PT OT eval and outreach and education social worker to assist with discharge planning ? 11/21/2024; patient agrees on being discharged to longterm facility 13. Hypernatremia ? Started patient on [...] 25 mg tablet 25 mg PO QHS 03/30/25 cholecalciferol (vitamin D3) 50 mcg (2,000 unit) [...] 11/24/24 03:25: Lymph % (Auto) 6.6 L, Sauk % (Auto) Cancelled 11/24/24 03:25: Sauk % (Auto) 11.3 H, Eos % (Auto) [...] Cancelled 11/24/24 03:25: Ovalocytes 1+, Stomatocytes Cancelled, Gonzalez-[place] Bodies Cancelled, [place] Cells Cancelled, Bite Cells Cancelled, Crenated Cell [...] Attending Provider: Kevin Robles Primary Care Provider: NISA GUTHRIE Consulting Providers: Elsy Perdomo; Izabel Arias; Daniel Hlal Discharge Orders/Prescriptions Prescriptions: New nystatin 100,000 unit/mL [...] PRN (Reason: pain) Referrals / Follow Up: NISA GUTHRIE [Other] NISA GUTHRIE [Other] Disposition Disposition (needs filled in before D/C Order can be placed): Retirement Facility Charges/Coding Visit Charges Inpatient E&M: 51792 Disch Hosp >30min 11/24/24 0852 <Electronically signed by Kevin Robles MD> Cosigner Signature (if applicable): CC: Dr. Kevin Robles MD; NISA GUTHRIE~ Signed [facility] Work Phone: 1(853) 715-870604-06-2025 Discharge summary Author Kevin Robles [facility] Note Date/Time November 24, 2024 8:51 am [facility] Medical Records Department [address] [place] [address] Transfer to [facility] MR#: [id number] Acct: [id number] Name: LESLI ROSALES Rep #:[id number] : 1940 84 From: Kevin Robles MD PCP: NISA GUTHRIE Status:ADM IN Certification of patient admission REQUIRED AT TIME OF ADMISSION. I CERTIFY THAT POST-HOSPITAL ECF SERVICES ARE REQUIRED TO BE GIVEN ON AN IN-PATIENT BASIS BECAUSE OF THE ABOVE NAMED PATIENT'S NEED FOR [facility] CARE ON A CONTINUING BASIS FOR THE CONDITION(S) FOR WHICH HE/SHE WAS RECEIVING IN-PATIENT HOSPITAL SERVICES PRIOR TO HIS/HER TRANSFER TO THE [facility]. 11/24/24 0851<Electronically signed by Kevin Robles MD> [...] ? Requested for PT OT eval and outreach and education social worker to assist with discharge planning ? 11/21/2024; patient agrees on being discharged to longterm facility 13. Hypernatremia ? Started patient on [...] Recommendations Dietitian Recommendations/Changes: Continue regular diet per TELEPHONE CLERK TELEGRAPH OFFICE consistency/texture recommendations. As PO intake improves, recommend regular, no added salt diet. Will order 120ml EPHP 4x daily with medpass, prefers strawberry. Will monitor weight trends. Discharge Plan Admission Admit Date/Time: 11/17/24 16:40 Attending Provider: Kevin Robles Primary Care Provider: NISA GUTHRIE Consulting Providers: Elsy Perdomo; Izabel Arias; [...] PRN (Reason: pain) Referrals / Follow Up: NISA GUTHRIE [Other] NISA GUTHRIE [Other] Disposition Disposition (needs filled in before D/C Order can be placed): Retirement Facility 11/24/24 0851 <Electronically signed by Kevin Robles MD> Cosigner Signature (if applicable): CC: Dr. Daniel Hall MD; Dr. Izabel Arias MD; Dr. Elsy Perdomo MD; NISA GUTHRIE ~ [facility] Work Phone: 1([phone]) 805-631204-06-2025 Discharge summary [facility] Medical Records Department [address] [place] [address] Discharge Summary 11/24/24 0851 MR#: [id number] Acct: [id number] Name: LESLI ROSALES Rep #:[id number] : 1940 84 From: Kevin Robles MD PCP: NISA GUTHRIE Status:ADM IN Location: [place] [address] Providers Date of Admission: 11/17/24 Date of Discharge: 11/24/24 Primary Care Physician: NISA GUTHRIE Consultations 11/17/24 17:50 Consult: Caustic Room Attendant / Pulmonary Medicine Routine Consulting Provider: Intensivists/Pulmonary Med Reason for Consult: septic shock EMERGENT Consult: No MD Notified: No Date Notified: 11/17/24 Time Notified: 16:53 11/17/24 21:56 Consult: Caustic Room Attendant / Pulmonary Medicine Routine Consulting Provider: Intensivists/Pulmonary [...] ? Requested for PT OT eval and outreach and education social worker to assist with discharge planning ? 11/21/2024; patient agrees on being discharged to longterm facility 13. Hypernatremia ? Started patient on [...] PRN Pain 1-10 Or Fever >100.7 #0 tabs11/24/24 food supplemt, lactose-reduced 0.08 gram-1.5 kcal/mL oral [...] 11/24/24 03:25: Lymph % (Auto) 6.6 L, Sauk % (Auto) Cancelled 11/24/24 03:25: Sauk % (Auto) 11.3 H, Eos % (Auto) [...] Cancelled 11/24/24 03:25: Ovalocytes 1+, Stomatocytes Cancelled, Gonzalez-[place] Bodies Cancelled, Aneta Cells Cancelled, Bite Cells Cancelled, Crenated Cell [...] Attending Provider: Kevin Robles Primary Care Provider: NISA GUTHRIE Consulting Providers: Elsy Perdomo; Izabel Arias; [...] PRN (Reason: pain) Referrals / Follow Up: NISA GUTHRIE [Other] NISA GUTHRIE [Other] Disposition Disposition (needs filled in before D/C Order can be placed): Retirement Facility Charges/Coding Visit Charges Inpatient E&M: 32121 Disch Hosp >30min 11/24/24 0852 Cosigner Signature (if applicable): CC: Dr. Kevin Robles MD; NISA GUTHRIE~ Signed [facility]04-06-2025 Discharge summary [facility] Medical Records Department [address] [place] [address] Transfer to [facility] MR#: [id number] Acct: [id number] Name: LESLI ROSALES Rep #:[id number] : 1940 84 From: Kevin Robles MD PCP: NISA GUTHRIE Status:ADM IN Certification of patient admission REQUIRED AT TIME OF ADMISSION. I CERTIFY THAT POST-HOSPITAL ECF SERVICES ARE REQUIRED TO BE GIVEN ON AN IN-PATIENT BASIS BECAUSE OF THE ABOVE NAMED PATIENT'S NEED FOR [facility] CARE ON A CONTINUING BASIS FOR THE CONDITION(S) FOR WHICH HE/SHE WAS RECEIVING IN-PATIENT HOSPITAL SERVICES PRIOR TO HIS/HER TRANSFER TO THE [facility]. 11/24/24 0851 Diet Diet Order/Speech Therapy: 11/18/24 [...] ? Requested for PT OT eval and outreach and education social worker to assist with discharge planning ? 11/21/2024; patient agrees on being discharged to longterm facility 13. Hypernatremia ? Started patient on [...] Recommendations Dietitian Recommendations/Changes: Continue regular diet per TELEPHONE CLERK TELEGRAPH OFFICE consistency/texture recommendations. As PO intake improves, recommend regular, no added salt diet. Will order 120ml EPHP 4x daily with medpass, prefers strawberry. Will monitor weight trends. Discharge Plan Admission Admit Date/Time: 11/17/24 16:40 Attending Provider: Kevin Robles Primary Care Provider: NISA GUTHRIE Consulting Providers: Elsy Perdomo; Izabel Arias; [...] PRN (Reason: pain) Referrals / Follow Up: NISA GUTHRIE [Other] NISA GUTHRIE [Other] Disposition Disposition (needs filled in before D/C Order can be placed): Retirement Facility 11/24/24 0851 Cosigner Signature (if applicable): CC: Dr. Daniel Hall MD; Dr. Izabel Arias MD; Dr. Elsy Perdomo MD; NISA GUTHRIE ~ [facility]04-06-2025 [facility]04-05-2025 Progress note Author Ester Claros [facility] Note Date/Time November 23, 2024 2:25 pm [facility] Medical Records Department [address] [place] [address] Progress Note - Nephrology 11/20/24 1450 MR#: [id number] Acct: [id number] Name: LESLI ROSALES Rep #:[id number] : 1940 84 From: Ester blank LITHOGRAPHING MACHINE OPERATOR-C PCP: NISA GUTHRIE Status:ADM IN Location: [place] [address] Subjective Subjective Patient resting quietly. Alert and [...] 87.4 H, Lymph % (Auto) 5.4 L, Sauk % (Auto) 6.4, Eos % (Auto) 0.0, [...] creatinine 2.6 mg/dL. No acute indication for ENVELOPE ADDRESSER. Potassium and bicarb acceptable. Patient does have [...] by Izabel Arias MD> CC: ~ Signed [facility] Work Phone: 1(811) 249-157004-05-2025 Progress note Author Ester Claros [facility] Note Date/Time November 23, 2024 2:25 pm [facility] Medical Records Department [address] [place] [address] Progress Note - Nephrology 11/22/2452 MR#: [id number] Acct: [id number] Name: LESLI ROSALES Rep #:[id number] : 1940 84 From: Ester blank LITHOGRAPHING MACHINE OPERATOR-C PCP: NISA GUTHRIE Status:ADM IN Location: [facility] HSQ198- 1 Subjective Subjective Resting in bed, no [...] (Auto) 79.9 H, Lymph % (Auto) 6.4L, Sauk % (Auto) 12.1 H, Eos % (Auto) [...] and plan reviewed with Dr. Arias. 11/22/24 3944 <Electronically signed by Ester NIELSEN> Cosigner Signature (if applicable): 11/23/24 4395 <Electronically signed by Izabel Arias MD> CC: ~ Signed [facility] Work Phone: 1(124) 224-533904-05-2025 Progress note Author Izabel Arias [facility] Note Date/Time November 23, 2024 2:25 pm [facility] Medical Records Department [address] [place] [address] Progress Note - Nephrology 11/23/24 1424 MR#: [id number] Acct: [id number] Name: LESLI ROSALES Rep #:[id number] : 1940 84 From: Izabel harvey MD PCP: NISA GUTHRIE Status:ADM IN Location: [place] [address] Subjective Subjective no new events Objective Data [...] (Auto) 79.8 H, Lymph % (Auto) 6.5L, Sauk % (Auto) 11.0 H, Eos % (Auto) [...] Cosigner Signature (if applicable): CC: ~ Signed [facility] Work Phone: 1(991) 194-700804-05-2025 Progress note [facility] Medical Records Department [address] [place] [address] Progress Note - Nephrology 11/20/24 1450 MR#: [id number] Acct: [id number] Name: LESLI ROSALES Rep #:[id number] : 1940 84 From: Ester blank LITHOGRAPHING MACHINE OPERATOR-C PCP: NISA GUTHRIE Status:ADM IN Location: [place] [address]- 1 Subjective Subjective Patient resting quietly. Alert [...] 87.4 H, Lymph % (Auto) 5.4 L, Sauk % (Auto) 6.4, Eos % (Auto) 0.0, [...] creatinine 2.6 mg/dL. No acute indication for ENVELOPE ADDRESSER. Potassium and bicarb acceptable. Patient does have [...] and plan reviewed with Dr. Arias. 11/20/24 1835 Cosigner Signature (if applicable): 11/23/24 3253 CC: ~ Signed [facility]04-05-2025 Progress note [facility] Medical Records Department [address] [place] [address] Progress Note - Nephrology 11/22/24 0852 MR#: [id number] Acct: [id number] Name: LESLI ROSALES Rep #:[id number] : 1940 84 From: Ester blank LITHOGRAPHING MACHINE OPERATOR-C PCP: NISA GUTHRIE Status:ADM IN Location: [place] [address] Subjective Subjective Resting in bed, no overnight [...] (Auto) 79.9 H, Lymph % (Auto) 6.4L, Sauk % (Auto) 12.1 H, Eos % (Auto) [...] and plan reviewed with Dr. Arias. 11/22/24 7077 Cosigner Signature (if applicable): 11/23/24 1425 CC: ~ Signed [facility]04-05-2025 Progress note [facility] Medical Records Department [address] [place] [address] Progress Note - Nephrology 11/23/24 142 MR#: [id number] Acct: [id number] Name: LESLI ROSALES Rep #:[id number] : 1940 84 From: Izabel harvey MD PCP: NISA GUTHRIE Status:ADM IN Location: [place] [address] Subjective Subjective no new events Objective Data [...] (Auto) 79.8 H, Lymph % (Auto) 6.5L, Sauk % (Auto) 11.0 H, Eos % (Auto) [...] Cosigner Signature (if applicable): CC: ~ Signed [facility]04-05-2025 Progress note Author Kevin Robles [facility] Note Date/Time November 23, 2024 11:1 0am [facility] Medical Records Department [address] [place] [address] Progress Note - Hospitalist 11/23/24 0748 MR#: [id number] Acct: [id number] Name: LESLI ROSALES Rep #:[id number] : 1940 84 From: Kevin Robles MD PCP: NISA GUTHRIE Status:ADM IN Location: [place] [address]- 1 Reason for Visit Reason for Visit: [...] (Auto) 79.8 H, Lymph % (Auto) 6.5L, Sauk % (Auto) 11.0 H, Eos % (Auto) [...] ? Requested for PT OT eval and outreach and education social worker to assist with discharge planning ? 11/21/2024; patient agrees on being discharged to longterm facility 13. Hypernatremia ? Started patient on [...] documentation, 36minutes Charges/Coding Visit Charges Inpatient E&M: 76193 Subs Hosp L2 11/23/24 1110 <Electronically signed by Kevin Robles MD> Cosigner Signature (if applicable): CC: ~ Signed [facility] Work Phone: 1(450) 102-923104-05-2025 Progress note [facility] Medical Records Department [address] [place] [address] Progress Note - Hospitalist 11/23/24 0748 MR#: [id number] Acct: [id number] Name: LESLI ROSALES Rep #:[id number] : 1940 84 From: Kevin Robles MD PCP: NISA GUTHRIE Status:ADM IN Location: [place] [address] Reason for Visit Reason for Visit: Diagnoses [...] (Auto) 79.8 H, Lymph % (Auto) 6.5L, Sauk % (Auto) 11.0 H, Eos % (Auto) [...] ? Requested for PT OT eval and outreach and education social worker to assist with discharge planning ? 11/21/2024; patient agrees on being discharged to longterm facility 13. Hypernatremia ? Started patient on [...] documentation, 36minutes Charges/Coding Visit Charges Inpatient E&M: 64804 Subs Hosp L2 11/23/24 1110 Cosigner Signature (if applicable): CC: ~ Signed [facility]04-04-2025 Progress note Author Kevin Robles [facility] Note Date/Time November 22, 2024 9:07 am [facility] Medical Records Department [address] [place] [address] Progress Note - Hospitalist 11/22/24 0900 MR#: [id number] Acct: [id number] Name: LESLI ROSALES Rep #:[id number] : 1940 84 From: Kevin Robles MD PCP: NISA GUTHRIE Status:ADM IN Location: [place] [address] Reason for Visit Reason for Visit: Diagnoses [...] (Auto) 79.9 H, Lymph % (Auto) 6.4L, Sauk % (Auto) 12.1 H, Eos % (Auto) [...] ? Requested for PT OT eval and outreach and education social worker to assist with discharge planning ? 11/21/2024; patient agrees on being discharged to longterm facility 13. Hypernatremia ? Started patient on 0.45 saline with repeat labs ordered in a.m. ? 11/22/2024; sodium levels down to 142 14. Hypokalemia -Corrected per protocol Time spent in the patient's overall evaluation,decision-making process, review of diagnostic data, adjustment of management, discussion with other providers, nursing nursing and ancillary staff involved in patient's care documentation, 38minutes Charges/Coding Visit Charges Inpatient E&M: 62899 Subs Hosp L2 11/22/24 0907 <Electronically signed by Kevin Robles MD> Cosigner Signature (if applicable): CC: ~ Signed [facility] Work Phone: 1(147) 776-993804-04-2025 Progress note [facility] Medical Records Department [address] [place] [address] Progress Note - Hospitalist 11/22/24 0900 MR#: [id number] Acct: [id number] Name: LESLI ROSALES Rep #:[id number] : 1940 84 From: Kevin Robles MD PCP: NISA GUTHRIE Status:ADM IN Location: [place] [address] Reason for Visit Reason for Visit: Diagnoses [...] (Auto) 79.9 H, Lymph % (Auto) 6.4L, Sauk % (Auto) 12.1 H, Eos % (Auto) [...] ? Requested for PT OT eval and outreach and education social worker to assist with discharge planning ? 11/21/2024; patient agrees on being discharged to longterm facility 13. Hypernatremia ? Started patient on 0.45 saline with repeat labs ordered in a.m. ? 11/22/2024; sodium levels down to 142 14. Hypokalemia -Corrected per protocol Time spent in the patient's overall evaluation,decision-making process, review of diagnostic data, adjustment of management, discussion with other providers, nursing nursing and ancillary staff involved in patient's care documentation, 38minutes Charges/Coding Visit Charges Inpatient E&M: 70586 Subs Hosp L2 11/22/24 0907 Cosigner Signature (if applicable): CC: ~ Signed [facility]04-03-2025 Progress note Author Ester Claros [facility] Note Date/Time November 21, 2024 9:14 pm [facility] Medical Records Department [address] [place] [address] Progress Note - Nephrology 11/21/24 1105 MR#: [id number] Acct: [id number] Name: LESLI ROSALES Rep #:[id number] : 1940 84 From: Ester NIELSEN PCP: NISA GUTHRIE Status:ADM IN Location: [place] [address] Documented by User: MORALES Schaeffer 11/21/24 11:10 [...] (Auto) 80.1 H, Lymph % (Auto) 7.2L, Sauk % (Auto) 11.9 H, Eos % (Auto) [...] last 2 days. No acute indication for ENVELOPE ADDRESSER. Potassium low, receiving replacement and bicarb acceptable. [...] last 2 days. No acute indication for ENVELOPE ADDRESSER. Potassium low, receiving replacement and bicarb acceptable. [...] and plan reviewed with Dr. Arias. Addendum [facility] 11/21/24 1110 <Electronically signed by Ester NIELSEN> Cosigner Signature (if applicable): 11/21/247 <Electronically signed by Izabel Arias MD> CC: ~ Signed [facility] Work Phone: 1(689) 832-710704-03-2025 Progress note [facility] Medical Records Department [address] [place] [address] Progress Note - Nephrology 11/21/24 1105 MR#: [id number] Acct: [id number] Name: LESLI ROSALES Rep #:[id number] : 1940 84 From: Ester NIELSEN PCP: NISA GUTHRIE Status:ADM IN Location: [place] [address] Documented by User: MORALES Schaeffer 11/21/24 11:10 [...] (Auto) 80.1 H, Lymph % (Auto) 7.2L, Sauk % (Auto) 11.9 H, Eos % (Auto) [...] last 2 days. No acute indication for ENVELOPE ADDRESSER. Potassium low, receiving replacement and bicarb acceptable. [...] last 2 days. No acute indication for ENVELOPE ADDRESSER. Potassium low, receiving replacement and bicarb acceptable. [...] plan reviewed with Dr. Arias. Addendum dw RN HEMODIALYSIS 11/21/24 1110 Cosigner Signature (if applicable): 11/21/242113 CC: ~ Signed [facility]04-03-2025 Progress note Author Kevin Robles [facility] Note Date/Time November 21, 2024 10:1 6am [facility] Medical Records Department [address] [place] [address] Progress Note - Hospitalist 11/21/24 1013 MR#: [id number] Acct: [id number] Name: LESLI ROSALES Rep #:[id number] : 1940 84 From: Kevin Robles MD PCP: NISA GUTHRIE Status:ADM IN Location: [place] [address]- 1 Reason for Visit Reason for Visit: [...] (Auto) 80.1 H, Lymph % (Auto) 7.2L, Sauk % (Auto) 11.9 H, Eos % (Auto) [...] ? Requested for PT OT eval and outreach and education social worker to assist with discharge planning ? 11/21/2024; patient agrees on being discharged to longterm facility 13. Hypernatremia ? Started patient on 0.45 saline with repeat labs ordered in a.m. Time spent in the patient's overall evaluation,decision-making process, review of diagnostic data, adjustment of management, discussion with other providers, nursing nursing and ancillary staff involved in patient's care documentation, 50minutes Charges/Coding Visit Charges Inpatient E&M: 12586 Subs Hosp L3 11/21/24 1016 <Electronically signed by Kevin Robles MD> Cosigner Signature (if applicable): CC: ~ Signed [facility] Work Phone: 1(172) 797-179404-03-2025 Progress note Author Gatomitul Givens [facility] Note Date/Time November 21, 2024 9:42 am [facility] Medical Records Department [address] [place] [address] Progress Note - Caustic Room Attendant 11/21/24 0940 MR#: [id number] Acct: [id number] Name: LESLI ROSALES Rep #:[id number] : 1940 84 From: Gato Givens DO PCP: NISA GUTHRIE Status:ADM IN Location: [place] [address] Assessment & Plan Assessment/Plan (1) Shock: PLAN: [...] initially was admitted to the hospital with "septic shock" presumed secondary to pneumonia, subsequent imaging of [...] noted above. This note was generated with [employer] software. It may contain incorrectwords, spelling, and [...] (Auto) 80.1 H, Lymph % (Auto) 7.2L, Sauk % (Auto) 11.9 H, Eos % (Auto) [...] flat affect Charges/Coding Visit Charges Inpatient E&M: 64774 Subs Hosp L2 11/21/24 0942 <Electronically signed by Gato Givens DO> Cosigner Signature (if applicable): CC: ~ Signed [facility] Work Phone: 1(818) 213-753404-03-2025 Progress note [facility] Medical Records Department [address] [place] [address] Progress Note - Hospitalist 11/21/24 1013 MR#: [id number] Acct: [id number] Name: LESLI ROSALES Rep #:[id number] : 1940 84 From: Kevin Robles MD PCP: NISA GUTHRIE Status:ADM IN Location: [place] [address] Reason for Visit Reason for Visit: Diagnoses [...] (Auto) 80.1 H, Lymph % (Auto) 7.2L, Sauk % (Auto) 11.9 H, Eos % (Auto) [...] ? Requested for PT OT eval and outreach and education social worker to assist with discharge planning ? 11/21/2024; patient agrees on being discharged to longterm facility 13. Hypernatremia ? Started patient on 0.45 saline with repeat labs ordered in a.m. Time spent in the patient's overall evaluation,decision-making process, review of diagnostic data, adjustment of management, discussion with other providers, nursing nursing and ancillary staff involved in patient's care documentation, 50minutes Charges/Coding Visit Charges Inpatient E&M: 49928 Subs Hosp L3 11/21/24 1016 Cosigner Signature (if applicable): CC: ~ Signed [facility]04-03-2025 Progress note [facility] Medical Records Department [address] [place] [address] Progress Note - Caustic Room Attendant 11/21/24 0940 MR#: [id number] Acct: [id number] Name: LESLI ROSALES Rep #:[id number] : 1940 84 From: Gato Givens DO PCP: NISA GUTHRIE Status:ADM IN Location: [place] [address]- 1 Assessment & Plan Assessment/Plan (1) Shock: [...] initially was admitted to the hospital with "septic shock" presumed secondary to pneumonia, subsequent imaging of [...] noted above. This note was generated with [employer] software. It may contain incorrectwords, spelling, and [...] (Auto) 80.1 H, Lymph % (Auto) 7.2L, Sauk % (Auto) 11.9 H, Eos % (Auto) [...] flat affect Charges/Coding Visit Charges Inpatient E&M: 28191 Subs Hosp L2 11/21/24 0942 Cosigner Signature (if applicable): CC: ~ Signed [facility]04-03-2025 Progress note Author [facility] Note Date/Time November 20, 2024 10:3 6pm [facility] Medical Records Department [address] [place] [address] Progress Note - Hospitalist 11/20/242235 MR#: [id number] Acct: [id number] Name: LESLI ROSALES Rep #:[id number] : 1940 84 From: Farida Welch MD PCP: NISA GUTHRIE Status:ADM IN Location: [place] [address] Hospitalist Note Llanos with mildly blood tinged urine, not bright red blood, Hgb stable, continueto monitor. 11/20/242235 <Electronically signed by Farida Welch MD> Cosigner Signature (if applicable): CC: ~ Signed [facility] Work Phone: 1(207) 246-147704-02-2025 Progress note [facility] Medical Records Department [address] [place] [address] Progress Note - Hospitalist 11/20/242235 MR#: [id number] Acct: [id number] Name: LESLI ROSALES Rep #:[id number] : 1940 84 From: Farida Welch MD PCP: NISA GUTHRIE Status:ADM IN Location: [place] [address] Hospitalist Note Llanos with mildly blood tinged urine, not bright red blood, Hgb stable, continueto monitor. 11/20/242235 Cosigner Signature (if applicable): CC: ~ Signed [facility]04-02-2025 Progress note Author Gato Givens [facility] Note Date/Time November 20, 2024 9:31 am [facility] Medical Records Department [address] [place] [address] Progress Note - Caustic Room Attendant 11/20/24 0902 MR#: [id number] Acct: [id number] Name: LESLI ROSALES Rep #:[id number] : 1940 84 From: Gato Chon PAULSON PCP: NISA GUTHRIE Status:ADM IN Location: [place] [address] Assessment & Plan Assessment/Plan (1) Shock: PLAN: [...] initially was admitted to the hospital with "septic shock" presumed secondary to pneumonia, subsequent imaging of [...] noted above. This note was generated with Dragon dictation software. It may contain incorrectwords, spelling, [...] 87.4 H, Lymph % (Auto) 5.4 L, Sauk % (Auto) 6.4, Eos % (Auto) 0.0, [...] flat affect Charges/Coding Visit Charges Inpatient E&M: 62737 Subs Hosp L2 11/20/24 0931 <Electronically signed by Gato Givens DO> Cosigner Signature (if applicable): CC: ~ Signed [facility] Work Phone: 1(852) 765-860804-02-2025 Progress note Author Kevin Robles [facility] Note Date/Time November 20, 2024 8:48 am [facility] Medical Records Department [address] [place] [address] Progress Note - Hospitalist 11/20/24 0841 MR#: [id number] Acct: [id number] Name: LESLI ROSALES Rep #:[id number] : 1940 84 From: Kevin Robles MD PCP: NISA GUTHRIE Status:ADM IN Location: [place] [address] Reason for Visit Reason for Visit: Diagnoses [...] H 94 Nasal Cannula 2 11/20/24 04:53 04/02/25 07:00 11/20/24 06:46 11/20/24 04:53 11/20/24 06:46 [...] 87.4 H, Lymph % (Auto) 5.4 L, Sauk % (Auto) 6.4, Eos % (Auto) 0.0, [...] ? Requested for PT OT eval and outreach and education social worker to assist with discharge planning Time spent in the patient's overall evaluation,decision-making process, review of diagnostic data, adjustment of management, discussion with other providers, nursing nursing and ancillary staff involved in patient's care documentation, 50minutes Charges/Coding Visit Charges Inpatient E&M: 66849 Subs Hosp L3 11/20/24 0848 <Electronically signed by Kevin Robles MD> Cosigner Signature (if applicable): CC: ~ Signed [facility] Work Phone: 1(758) 609-754104-02-2025 Progress note [facility] Medical Records Department [address] [place] [address] Progress Note - Caustic Room Attendant 11/20/24901 MR#: [id number] Acct: [id number] Name: LESLI ROSALES Rep #:[id number] : 1940 84 From: Gato Givens DO PCP: NISA GUTHRIE Status:ADM IN Location: [place] [address] Assessment & Plan Assessment/Plan (1) Shock: PLAN: [...] initially was admitted to the hospital with "septic shock" presumed secondary to pneumonia, subsequent imaging of [...] noted above. This note was generated with [employer] software. It may contain incorrectwords, spelling, and [...] 87.4 H, Lymph % (Auto) 5.4 L, Sauk % (Auto) 6.4, Eos % (Auto) 0.0, [...] flat affect Charges/Coding Visit Charges Inpatient E&M: 15370 Subs Hosp L2 11/20/24 0931 Cosigner Signature (if applicable): CC: ~ Signed [facility]04-02-2025 Progress note [facility] Medical Records Department [address] [place] [address] Progress Note - Hospitalist 11/20/24 0841 MR#: [id number] Acct: [id number] Name: LESLI ROSALES Rep #:[id number] : 1940 84 From: Kevin Robles MD PCP: NISA GUTHRIE Status:ADM IN Location: [place] [address] Reason for Visit Reason for Visit: Diagnoses [...] 87.4 H, Lymph % (Auto) 5.4 L, Sauk % (Auto) 6.4, Eos % (Auto) 0.0, [...] ? Requested for PT OT eval and outreach and education social worker to assist with discharge planning Time spent in the patient's overall evaluation,decision-making process, review of diagnostic data, adjustment of management, discussion with other providers, nursing nursing and ancillary staff involved in patient's care documentation, 50minutes Charges/Coding Visit Charges Inpatient E&M: 89098 Subs Hosp L3 11/20/24 0848 Cosigner Signature (if applicable): CC: ~ Signed [facility]04-01-2025 Consult note Author Izabel Arias [facility] Note Date/Time November 19, 2024 6:34 pm [facility] Medical Records Department [address] [place] [address] Consultation - Nephrology 11/19/24 1827 MR#: [id number] Acct: [id number] Name: LESLI ROSALES Rep #:[id number] : 1940 84 From: Izabel harvey MD PCP: NISA GUTHRIE Status:ADM IN Location: [place] [address] Assessment & Plan Assessment/Plan (1) NAT (acute [...] level was found to be significantly elevated. [facility] Medical History (Updated 11/19/24 @ 18:34 by [...] (Auto) 79.5 H, Lymph % (Auto) 8.9L, Sauk % (Auto) 10.8 H, Eos % (Auto) [...] Arias MD> Cosigner Signature (if applicable): CC: NISA GUTHRIE~ Signed [facility] Work Phone: 1(402) 539-775504-01-2025 Consult note [facility] Medical Records Department [address] [place] [address] Consultation - Nephrology 11/19/24 1827 MR#: [id number] Acct: [id number] Name: LESLI ROSALES Rep #:[id number] : 1940 84 From: Izabel harvey MD PCP: NISA GUTHRIE Status:ADM IN Location: [place] [address]- 1 Assessment & Plan Assessment/Plan (1) NAT [...] level was found to be significantly elevated. [facility] Medical History (Updated 11/19/24 @ 18:34 by [...] (Auto) 79.5 H, Lymph % (Auto) 8.9L, Sauk % (Auto) 10.8 H, Eos % (Auto) [...] Preliminary No growth in 48 hours. 11/19/24 2544 Cosigner Signature (if applicable): CC: NISA GUTHRIE~ Signed [facility]04-01-2025 Progress note Author Gato Givens [facility] Note Date/Time November 19, 2024 9:56 am [facility] Medical Records Department [address] [place] [address] Progress Note - Caustic Room Attendant 11/19/24 0740 MR#: [id number] Acct: [id number] Name: LESLI ROSALES Rep #:[id number] : 1940 84 From: Gato Givens DO PCP: NISA GUTHRIE Status:ADM IN Location: ICU ICU04-1 Assessment [...] initially was admitted to the hospital with "septic shock" presumed secondary to pneumonia, subsequent imaging of [...] noted above. This note was generated with [employer] dictation software. It may contain incorrectwords, spelling, [...] (Auto) 79.5 H, Lymph % (Auto) 8.9L, Sauk % (Auto) 10.8 H, Eos % (Auto) [...] flat affect Charges/Coding Visit Charges Inpatient E&M: 30356 Subs Hosp L3 11/19/24 0956 <Electronically signed by Gato Givens DO> Cosigner Signature (if applicable): CC: ~ Signed [facility] Work Phone: 1(590) 982-632604-01-2025 Progress note Author Kevin Robles [facility] Note Date/Time November 19, 2024 8:32 am [facility] Medical Records Department [address] [place] [address] Progress Note - Hospitalist 11/19/24 0717 MR#: [id number] Acct: [id number] Name: LESLI ROSALES Jose Alberto Rep #:[id number] : 1940 84 From: Kevin Robles MD PCP: NISA GUTHRIE [facility] Visit Reason for Visit: Diagnoses [...] (Auto) 79.5 H, Lymph % (Auto) 8.9L, Sauk % (Auto) 10.8 H, Eos % (Auto) [...] of response to therapy with serial BMP ?; given the persistent impaired kidney function consult [...] documentation, 50minutes Charges/Coding Visit Charges Inpatient E&M: 26484 Subs Hosp L3 11/19/24 0832 <Electronically signed by Kevin Robles MD> Cosigner Signature (if applicable): CC: ~ Signed [facility] Work Phone: 1(911) 828-268204-01-2025 Progress note [facility] Medical Records Department [address] [place] [address] Progress Note - Caustic Room Attendant 11/19/24 0740 MR#: [id number] Acct: [id number] Name: LESLI ROSALES Rep #:[id number] : 1940 84 From: Gato Givens DO PCP: NISA GUTHRIE Status:ADM IN Location: ICU ICU04-1 Assessment [...] initially was admitted to the hospital with "septic shock" presumed secondary to pneumonia, subsequent imaging of [...] noted above. This note was generated with [employer] dictation software. It may contain incorrectwords, spelling, [...] (Auto) 79.5 H, Lymph % (Auto) 8.9L, Sauk % (Auto) 10.8 H, Eos % (Auto) [...] flat affect Charges/Coding Visit Charges Inpatient E&M: 58162 Subs Hosp L3 11/19/24 0956 Cosigner Signature (if applicable): CC: ~ Signed [facility]04-01-2025 Progress note [facility] Medical Records Department [address] [place] [address] Progress Note - Hospitalist 11/19/24 0717 MR#: [id number] Acct: [id number] Name: LESLI ROSALES Rep #:[id number] : 1940 84 From: Kevin Robles MD PCP: NISA GUTHRIE Status:ADM IN Location: ICU ICU04-1 Reason [...] (Auto) 79.5 H, Lymph % (Auto) 8.9L, Sauk % (Auto) 10.8 H, Eos % (Auto) [...] documentation, 50minutes Charges/Coding Visit Charges Inpatient E&M: 30732 Subs Hosp L3 11/19/24 0832 Cosigner Signature (if applicable): CC: ~ Signed [facility]2025 Progress note Author Gato Givens [facility] Note Date/Time November 18, 2024 10: 15am [facility] Medical Records Department [address] [place] [address] Progress Note - Caustic Room Attendant 11/18/24 0751 MR#: [id number] Acct: [id number] Name: LESLI ROSALES Rep #:[id number] : 1940 84 From: Gato Givens DO PCP: NISA GUTHRIE Status:ADM IN Location: ICU ICU04-1 Assessment [...] with the patient. 8. Consider referral to rail car painter/sandblaster. IMPRESSIONS: 1. Undifferentiated shock While the patient initially was admitted to the hospital with "septic shock" presumed secondary to pneumonia, subsequent imaging of [...] systemic anticoagulation with Xarelto. Consider referral to rail car painter/sandblaster. TIME: 38 minutes of critical care time, [...] 85.3 H, Lymph % (Auto) 6.2 L, Sauk % (Auto) 7.5, Eos % (Auto) 0.0, [...] Sens 482 H*, [place] [address] H, Total Protein 7.3, Albumin 3.7, Globulin 3.6, Albumin/Globulin Ratio 1.0 11/17/24 13:37: Urine Color Yellow, Urine Clarity Sl. Cloudy, Urine pH 6.0, Ur Specific [place]urel 1.020, Urine Protein 30 H, Urine Glucose [...] 81.6 H, Lymph % (Auto) 8.0 L, Sauk % (Auto) 9.6, Eos % (Auto) 0.0, [...] 83.5 H, Lymph % (Auto) 7.9 L, Sauk % (Auto) 7.7, Eos % (Auto) 0.0, [...] inability to confirm benign pathology. Reading Location: [facility] Hip/Pelvis X-Ray 11/17/24 15:21 IMPRESSION: DEGENERATIVE OSTEOARTHROSIS. NO ACUTE FINDINGS. Reading Location: [facility] Chest/Abdomen/Pelvis CT 11/17/24 20:40 IMPRESSION: 1. [...] Other nonacute findings detailed above. [facility] Const alert and no apparent [...] Affect: flat affect Charges/Coding Procedures Hospitalists Procedures: 64879 Critical Care 1st Hr 11/18/24 1015 <Electronically signed by Gato Givens DO> Cosigner Signature (if applicable): CC: ~ Signed [facility] Work Phone: 1(364) 581-975103-31-2025 Progress note Author Kevin Robles [facility] Note Date/Time November 18, 2024 8:3 6am [facility] Medical Records Department [address] [place] [address] Progress Note - Hospitalist 11/18/2430 MR#: [id number] Acct: [id number] Name: LESLI ROSALES Rep #:[id number] : 1940 84 From: Kevin Robles MD PCP: NISA GUTHRIE Status:ADM [facility] for Visit Reason for Visit: Diagnoses [...] 85.3 H, Lymph % (Auto) 6.2 L, Sauk % (Auto) 7.5, Eos % (Auto) 0.0, [...] Sens 482 H*, [place] [address] H, Total Protein 7.3, Albumin 3.7, Globulin 3.6, Albumin/Globulin Ratio 1.0 11/17/24 13:37: Urine Color Yellow, Urine Clarity Sl. Cloudy, Urine pH 6.0, Ur Specific Laurel 1.020, Urine Protein 30 H, Urine Glucose [...] 81.6 H, Lymph % (Auto) 8.0 L, Sauk % (Auto) 9.6, Eos % (Auto) 0.0, [...] 83.5 H, Lymph % (Auto) 7.9 L, Sauk % (Auto) 7.7, Eos % (Auto) 0.0, [...] inability to confirm benign pathology. Reading Location: [facility] Hip/Pelvis X-Ray 11/17/24 15:21 IMPRESSION: DEGENERATIVE OSTEOARTHROSIS. NO ACUTE FINDINGS. Reading Location: [facility] Chest/Abdomen/Pelvis CT 11/17/24 20:40 IMPRESSION: 1. [...] documentation, 55minutes Charges/Coding Visit Charges Inpatient E&M: 41711 Subs Hosp L3 11/18/24 0836 <Electronically signed by Kevin Robles MD> Cosigner Signature (if applicable): CC: ~ Signed [facility] Work Phone: 1(123) 147-164303-31-2025 Progress note [facility] Medical Records Department [address] [place] [address] Progress Note - Caustic Room Attendant 11/18/24 0751 MR#: [id number] Acct: [id number] Name: LESLI ROSALES Rep #:[id number] : 1940 84 From: Gato Givens DO PCP: NISA GUTHRIE Status:ADM IN Location: ICU ICU04-1 Assessment [...] with the patient. 8. Consider referral to rail car painter/sandblaster. IMPRESSIONS: 1. Undifferentiated shock While the patient initially was admitted to the hospital with "septic shock" presumed secondary to pneumonia, subsequent imaging of [...] systemic anticoagulation with Xarelto. Consider referral to rail car painter/sandblaster. TIME: 38 minutes of critical care time, [...] 85.3 H, Lymph % (Auto) 6.2 L, Sauk % (Auto) 7.5, Eos % (Auto) 0.0, [...] Sens 482 H*, [place] [address] H, Total Protein 7.3, Albumin 3.7, Globulin 3.6, Albumin/Globulin Ratio 1.0 11/17/24 13:37: Urine Color Yellow, Urine Clarity Sl. Cloudy, Urine pH 6.0, Ur Specific Laurel 1.020, Urine Protein 30 H, Urine Glucose [...] 81.6 H, Lymph % (Auto) 8.0 L, Sauk % (Auto) 9.6, Eos % (Auto) 0.0, [...] 83.5 H, Lymph % (Auto) 7.9 L, Sauk % (Auto) 7.7, Eos % (Auto) 0.0, [...] inability to confirm benign pathology. Reading Location: [facility] Hip/Pelvis X-Ray 11/17/24 15:21 IMPRESSION: DEGENERATIVE OSTEOARTHROSIS. NO ACUTE FINDINGS. Reading Location: [facility] Chest/Abdomen/Pelvis CT 11/17/24 20:40 IMPRESSION: 1. [...] Other nonacute findings detailed above. [facility] Const alert and no apparent [...] Affect: flat affect Charges/Coding Procedures Hospitalists Procedures: 27218 Critical Care 1st Hr 11/18/24 1015 Cosigner Signature (if applicable): CC: ~ Signed [facility]2025 Progress note [facility] Medical Records Department [address] [place] [address] Progress Note - Hospitalist 11/18/24729 MR#: [id number] Acct: [id number] Name: LESLI ROSALES Rep #:[id number] : 1940 84 From: Kevin Robles MD PCP: NISA GUTHRIE Status:ADM IN Location: ICU ICU- Reason [...] 85.3 H, Lymph % (Auto) 6.2 L, Sauk % (Auto) 7.5, Eos % (Auto) 0.0, [...] Sens 482 H*, [place] [address] H, Total Protein 7.3, Albumin 3.7, Globulin 3.6, Albumin/Globulin Ratio 1.0 11/17/24 13:37: Urine Color Yellow, Urine Clarity Sl. Cloudy, Urine pH 6.0, Ur Specific Laurel 1.020, Urine Protein 30 H, Urine Glucose [...] 81.6 H, Lymph % (Auto) 8.0 L, Sauk % (Auto) 9.6, Eos % (Auto) 0.0, [...] 83.5 H, Lymph % (Auto) 7.9 L, Sauk % (Auto) 7.7, Eos % (Auto) 0.0, [...] inability to confirm benign pathology. Reading Location: [facility] Hip/Pelvis X-Ray 11/17/24 15:21 IMPRESSION: DEGENERATIVE OSTEOARTHROSIS. NO ACUTE FINDINGS. Reading Location: [facility] Chest/Abdomen/Pelvis CT 11/17/24 20:40 IMPRESSION: 1. [...] Other nonacute findings detailed above. [facility] Exam Narrative GENERAL: Patient appears ill [...] documentation, 55minutes Charges/Coding Visit Charges Inpatient E&M: 85881 Subs Hosp L3 11/18/24 0836 Cosigner Signature (if applicable): CC: ~ Signed [facility]2025 Consult note Author Lorna Salvador [facility] Note Date/Time November 17, 2024 11: 40pm [facility] Medical Records Department [address] [place] [address] Consultation - Caustic Room Attendant 11/17/242043 MR#: [id number] Acct: [id number] Name: LESLI ROSALES Rep #:[id number] : 1940 84 From: Lorna Salvador MD PCP: NISA GUTHRIE Status:ADM IN Location: ICU ICU04-[address] Lorna Salvador MD on 11/17/24 at 2340 Addendum ADDENDUM Reviewed repeat labs and imaging. No e/o pneumonia on CT chest. Stop Doxy. K elevated Calcium, bicarb, kayexlate ordered Follow renal panel 11/17/24 2340<Electronically signed by Lorna Salvador MD> Cosigner Signature (if applicable): cc: NISA GUTHRIE ~* Signed HPI Consult Data Date [...] min prior and reports pain has improved. [facility] Medical History (Updated 11/17/24 @ 18:37 by [...] / Sodium Chloride CONT INF 20 mcg/min .[id number] SUKHJINDER 37.5 mls/hr Titration Protocol 5 MCG/MIN Sodium Chloride 1,000 mls @ 75 mls/hr 11/17/24 17:50 11/17/24 18:09 IV 11/18/24 07:09 75 mls/hr .[id number] SUKHJINDER Administration Piperacillin Sod/Tazobactam 50 mls @ [...] mls/hr 11/17/24 20:40 Chloride CONT INF .[id number] [facility] 0.03 UNITS/MIN Melatonin 3 mg 11/17/24 17:50 [...] 17:00 Rivaroxaban 15 Mg Tablet PO DINNER [facility] Senna/Docusate Sodium 2 tablet 11/17/24 17:50 Senna/Docusate [...] 85.3 H, Lymph % (Auto) 6.2 L, Sauk % (Auto) 7.5, Eos % (Auto) 0.0, [...] Sens 482 H*, [place] [address] H, Total Protein 7.3, Albumin 3.7, Globulin 3.6, Albumin/Globulin Ratio 1.0 11/17/24 13:37: Urine Color Yellow, Urine Clarity Sl. Cloudy, Urine pH 6.0, Ur Specific Laurel 1.020, Urine Protein 30 H, Urine Glucose [...] inability to confirm benign pathology. Reading Location: [facility] Hip/Pelvis X-Ray 11/17/24 15:21 IMPRESSION: DEGENERATIVE OSTEOARTHROSIS. NO ACUTE FINDINGS. Reading Location: [facility] Assessment and Plan . Assessment and [...] Salvador MD> Cosigner Signature (if applicable): CC: NISA GUTHRIE~ Signed [facility] Work Phone: 1([phone]) 319-691203-30-2025 Consult note [facility] Medical Records Department [address] [place] [address] Consultation - Caustic Room Attendant 11/17/242043 MR#: [id number] Acct: [id number] Name: LESLI ROSALES Rep #:[id number] : 1940 84 From: Lorna Salvador MD PCP: NISA GUTHRIE Status:ADM IN Location: ICU ICU04-[address] Lorna Salvador MD on 11/17/24 at 2340 Addendum ADDENDUM Reviewed repeat labs and imaging. No e/o pneumonia on CT chest. Stop Doxy. K elevated Calcium, bicarb, kayexlate ordered Follow renal panel 11/17/242339 Cosigner Signature (if applicable): cc: NISA GUTHRIE ~* Signed HPI Consult Data Date [...] min prior and reports pain has improved. [facility] Medical History (Updated 11/17/24 @ 18:37 by [...] / Sodium Chloride CONT INF 20 mcg/min .[id number] SUKHJINDER 37.5 mls/hr Titration Protocol 5 MCG/MIN Sodium Chloride 1,000 mls @ 75 mls/hr 11/17/24 17:50 11/17/24 18:09 IV 11/18/24 07:09 75 mls/hr .[id number] SUKHJINDER Administration Piperacillin Sod/Tazobactam 50 mls @ [...] 85.3 H, Lymph % (Auto) 6.2 L, Sauk % (Auto) 7.5, Eos % (Auto) 0.0, [...] Sens 482 H*, [place] [address] H, Total Protein 7.3, Albumin 3.7, Globulin 3.6, Albumin/Globulin Ratio 1.0 11/17/24 13:37: Urine Color Yellow, Urine Clarity Sl. Cloudy, Urine pH 6.0, Ur Specific Laurel 1.020, Urine Protein 30 H, Urine Glucose [...] inability to confirm benign pathology. Reading Location: [facility] Hip/Pelvis X-Ray 11/17/24 15:21 IMPRESSION: DEGENERATIVE OSTEOARTHROSIS. NO ACUTE FINDINGS. Reading Location: [facility] Assessment and Plan . Assessment and [...] this encounter was done via Telemedicine 11/17/242100 Cosigner Signature (if applicable): CC: NISA GUTHRIE~ Signed [facility]03-30-2025 Radiology Diagnostic study note [facility] Imaging Services [address] [place] [address] CT Chest, Abd, Pelvis WO [facility] MR#: [id number] Acct: [id number] Name: LESLI ROSALES Rep #: [id number] : 1940 F 84 From: Bertha Balderas MD PCP: NISA GUTHRIE Status: ADM IN Study:CT Chest, Abd, Pelvis WO Cont Date of E xam: 11/17/24 Exam# [id number] Ordering Dr: Gerardo Salvador MD PROCEDURE: CT [...] dependently in the right goran thorax. Heart: [id number] cardiac enlargement Pericardium: No thickening. No pericardial [...] and L4. CT/CT Chest, Abd, Pelvis WO Cont IMPRESSION: 1. Right pleural effusion. 2. Right [...] Location: [facility] CC: Dr. Lorna Salvador MD; NISA GUTHRIE ~ Coat Baster: Signed [facility]03-30-2025 Discharge summary Author Reza Pedraza [facility] Note Date/Time November 17, 2024 6:4 9pm [facility] Medical Records Department [address] [place] [address] Emergency Department Summary 11/17/24 MR#: [id number] Acct: [id number] Name: LESLI ROSALES Rep #:[id number] : 1940 84 From: Reza Ballard PCP: NISA GUTHRIE Status:ADM IN Location: ICU ICU-1 HPI History of Present Illness Chief Complaint: Lower Extremity Injury [facility] Medical History (Updated 11/17/24 @ 18:37 [...] Method Nasal Cannula Oxygen Flow Rate (L/min) [facility] MDM Narrative Medical decision making narrative: HISTORY [...] others: EMS Consults: Social work, internal medicine [facility] Narrative: Patient was initially hypotensive, hypoxic with [...] evidence of pulmonary edema. BMP without significant Needles normalities, there is elevation anion gap as [...] a wire introducer was placed, a 7 Guamanian triple lumen catheter was placed using Seldinger [...] to ICU This note was generated with [employer] dictation software. It may contain incorrectwords, spelling, [...] 85.3 H Lymph % (Auto) 6.2 L Sauk % (Auto) 7.5 Eos % (Auto) 0.0 [...] Hr 441 H* [place] [address] H Total Protein 7.3 Albumin 3.7 Globulin 3.6 Albumin/Globulin Ratio 1.0 Urine Color Yellow Urine Clarity Sl. Cloudy Urine pH 6.0 Ur Specific Laurel 1.020 Urine Protein 30 H Urine Glucose [...] inability to confirm benign pathology. Reading Location: [facility] Hip/Pelvis X-Ray 11/17/24 15:21 IMPRESSION: DEGENERATIVE OSTEOARTHROSIS. NO ACUTE FINDINGS. Reading Location: [facility] Discharge Plan Disposition Disposition: Acute Care Hospital [facility] Discharge Date/Time: 11/17/24 17:45 What to do if you have Problems For any increased pain, shortness of breath, bleeding, nausea or vomiting, chestpain, or any unexpected problems, contact your Primary Care Provider. Call [facility] ([phone]) or report to the closest Emergency Room. Call 911 if necessary. 11/17/24 184 <Electronically signed by Reza Pedraza DO> Cosigner Signature (if applicable): CC: NISA GUTHRIE ~ Signed [facility] Work Phone: 1(453) 581-831003-30-2025 Consult note Author Maki Sher [facility] Note Date/Time November 17, 2024 6:3 3pm [facility] Medical Records Department [address] [place] [address] Pharmacokinetic/Renal -Consult 11/17/241817 MR#: [id number] Acct: [id number] Name: LESLI ROSALES Rep #:[id number] : 1940 84 From: Maki Sher PCP: NISA GUTHRIE Status:ADM IN Y Location: ICU ICU04-1 [...] Date Elsy Perdomo MD CC: ~ Signed [facility] Work Phone: 1(818) 926-894403-30-2025 History and physical note Author Elsy Perdomo [facility] Note Date/Time November 17, 2024 5:0 4pm [facility] Medical Records Department [address] [place] [address] H&P Exam - Hospitalist 11/17/24 1640 MR#: [id number] Acct: [id number] Name: LESLI ROSALES Rep #:[id number] : 1940 84 From: Elsy Perdomo MD PCP: NISA GUTHRIE Status:ADM IN Location: ICU ICU04-1 HPI - General General Date of Admission: 11/17/24 Date of Service: 11/17/24 Chief Complaint: Poor PO, nausea HPI Narrative LESLI ROSALES, is a an 84-year-old female with history of A-fib, psoriatic arthritis, COPD who presented [facility] ED 11/17/2024 with righthip pain with [...] abnormal for her, had not occurred prior. [facility] Medical History (Updated 11/17/24 @ 16:45 by [...] 85.3 H, Lymph % (Auto) 6.2 L, Sauk % (Auto) 7.5, Eos % (Auto) 0.0, [...] Sens 482 H*, [place] [address] H, Total Protein 7.3, Albumin 3.7, Globulin 3.6, Albumin/Globulin Ratio 1.0 11/17/24 13:37: Urine Color Yellow, Urine Clarity Sl. Cloudy, Urine pH 6.0, Ur Specific Laurel 1.020, Urine Protein 30 H, Urine Glucose [...] inability to confirm benign pathology. Reading Location: [facility] Hip/Pelvis X-Ray 11/17/24 15:21 IMPRESSION: DEGENERATIVE OSTEOARTHROSIS. NO ACUTE FINDINGS. Reading Location: [facility] Assessment & Plan Assessment/Plan (1) Septic [...] documentation, 78Minutes Charges/Coding Visit Charges Inpatient E&M: 02621 Init Hosp L3 11/17/24 1704 <Electronically signed by Elsy Perdomo MD> Cosigner Signature (if applicable): CC: Dr. Elsy Perdomo MD; NISA GUTHRIE~ Signed [facility] Work Phone: 1([phone]) 814-148903-30-2025 Discharge summary [facility] Medical Records Department [address] [place] [address] Emergency Department Summary 11/17/24 MR#: [id number] Acct: [id number] Name: LESLI ROSALES Rep #:[id number] : 1940 84 From: Reza Ballard PCP: NISA GUTHRIE Status:ADM IN Location: ICU ICU04-1 HPI History of Present Illness Chief Complaint: Lower Extremity Injury [facility] Medical History (Updated 11/17/24 @ 18:37 [...] Method Nasal Cannula Oxygen Flow Rate (L/min) [facility] [place] [place] Narrative Medical decision making narrative: HISTORY OF [...] evidence of pulmonary edema. BMP without significant Needles normalities, there is elevation anion gap as [...] then a wireintroducer was placed, a 7 Guamanian triple lumen catheter was placed using Seldinger [...] to ICU This note was generated with [employer] dictation software. It may contain incorrectwords, spelling, [...] 85.3 H Lymph % (Auto) 6.2 L Sauk % (Auto) 7.5 Eos % (Auto) 0.0 [...] Hr 441 H* [place] [address] H Total Protein 7.3 Albumin 3.7 Globulin 3.6 Albumin/Globulin Ratio 1.0 Urine Color Yellow Urine Clarity Sl. Cloudy Urine pH 6.0 Ur Specific Laurel 1.020 Urine Protein 30 H Urine Glucose [...] inability to confirm benign pathology. Reading Location: [facility] Hip/Pelvis X-Ray 11/17/24 15:21 IMPRESSION: DEGENERATIVE OSTEOARTHROSIS. NO ACUTE FINDINGS. Reading Location: [facility] Discharge Plan Disposition Disposition: Acute Care Hospital [facility] Discharge Date/Time: 11/17/24 17:45 What to do if you have Problems For any increased pain, shortness of breath, bleeding, nausea or vomiting, chestpain, or any unexpected problems, contact your Primary Care Provider. Call [employer] ([phone]) or report tothe closest Emergency Room. Call 911 if necessary. 11/17/24 184 Cosigner Signature (if applicable): CC: NISA GUTHRIE ~ Signed [facility]03-30-2025 Evaluation note* Diagnosis Onset Date Resolution Status Admit Date NAT (acute kidney injury) acute November 17, 2024 4:40pm Septic shock acute November 17, 2024 4:40pm Shock acute November 17 4:40pm [facility] Work Phone: 1(297) 516-529803-30-2025 Evaluation note* Diagnosis Onset Date Resolution Status Admit Date NAT (acute kidney injury) resolved November 17, 2024 4:40pm Septic shock resolved November 17, 2024 4:40pm Shock resolved November 17 4:40pm Ambulatory dysfunction acute Ma y 2024 7:55pm Back pain acute December 24, 2024 7:55pm Chronic anticoagulation acute ay 2024 7:55pm Closed compression fracture of lumbosacral spine acute December 24, 2024 7:55pm Generalized weakness acute December 24, 2024 7:55pm Inability to perform activit ies of daily living acute December 24, 2024 7: 55pm Overweight (BMI 25.0-29.9) acute December 24, 2024 7:55pm Paroxysmal atrial fibrillation acute December 24, 2024 7:55pm Unable to care for self acute [facility] 2024 7:55pm [facility] Work Phone: [phone]) 403-561303-30-2025 Evaluation note* Diagnosis Onset Date Resolution Status [...] 2024 7:55pm Status post kyphoplasty acute M ay 2024 7:55pm Unable to care for self acute M ay 2024 7:55pm [facility] Work Phone: [phone]) 734-281203-30-2025 Evaluation note* Diagnosis Onset Date Resolution Status Admit Date NAT (acute kidney injury) resolved November 17, 2024 4:40pm Septic shock resolved November 17, 2024 4:40pm Shock resolved November 17 4:40pm Status post kyphoplasty acute M ay 2024 7:55pm Abnormal finding on urinalysis inact petr December 24, 2024 7:55pm Acute cystitis with hematuria inacti ve December 24, 2024 7:55pm Ambulatory dysfunction inactive Ma y 2024 7:55pm Back pain inactive December 24, 2024 7:55pm Burst fracture of lumbar vertebra inactive December 24, 2024 7: 55pm Chronic anticoagulation inactive M ay 2024 7:55pm Closed compression fracture [...] Unable to care for self inactive M ay 2024 7:55pm [facility] Work Phone: 1([phone]) 996-853103-30-2025 Evaluation note* Diagnosis Onset Date Resolution Status Admit Date NAT (acute kidney injury) resolved November 17, 2024 4:40pm Septic shock resolved November 17, 2024 4:40pm Shock resolved November 17 4:40pm Compression fracture of L3 vertebra acute December 24, 2024 7: 55pm Status post kyphoplasty acute M ay 2024 7:55pm Abnormal finding on urinalysis inact petr December 24, 2024 7:55pm Acute cystitis with hematuria inacti ve December 24, 2024 7:55pm Ambulatory dysfunction inactive Ma y 2024 7:55pm Back pain inactive December 24, 2024 7:55pm Burst fracture of lumbar vertebra inactive December 24, 2024 7: 55pm Chronic anticoagulation inactive [facility] 2024 7:55pm Closed compression fracture of lumbosacral spine inactive December 24, 2024 7:55pm Compression fracture of L2 inactive December 24, 2024 7:55pm Generalized weakness inactive December 24, 2024 7:55pm [...] Unable to care for self inactive M ay 2024 7:55pm Compression fracture of L3 vertebra acute January 14, 2025 1 0:23am Status post kyphoplasty acute M 2024 10:23am [facility] Work Phone: 1([phone]) 391-771003-30-2025 Evaluation note* Diagnosis Onset Date Resolution Status Admit Date NAT (acute kidney injury) resolved November 17, 2024 4:40pm Septic shock resolved November 17, 2024 4:40pm Shock resolved November 17 4:40pm Compression fracture of L3 vertebra acute December 24, 2024 7: 55pm Status post kyphoplasty acute M ay 2024 7:55pm Abnormal finding on urinalysis inact petr December 24, 2024 7:55pm Acute cystitis with hematuria inacti ve December 24, 2024 7:55pm Ambulatory dysfunction inactive Ma y 2024 7:55pm Back pain inactive December 24, 2024 7:55pm Burst fracture of lumbar vertebra inactive December 24, 2024 7: 55pm Chronic anticoagulation inactive M ay 2024 7:55pm Closed compression fracture of lumbosacral spine inactive December 24, 2024 7:55pm Compression fracture of L2 inactive December 24, 2024 7:55pm Generalized weakness inactive December 24, 2024 7:55pm [...] care for self inactive M 2024 7:55pm Compression fracture of L3 vertebra acute January 14, 2025 1 0:23am Status post kyphoplasty acute [facility] 2024 10:23am Acute cystitis without hematuria acu te March 08, 2025 10:32am [facility] Work Phone: 1(530) 300-460603-30-2025 Evaluation note* Diagnosis Onset Date Resolution Status Admit Date NAT (acute kidney injury) resolved November 17, 2024 4:40pm Septic shock resolved November 17, 2024 4:40pm Shock resolved November 17 4:40pm Compression fracture of L3 vertebra acute December 24, 2024 7: 55pm Status post kyphoplasty acute M ay 2024 7:55pm Abnormal finding on urinalysis inact petr December 24, 2024 7:55pm Acute cystitis with hematuria inacti ve December 24, 2024 7:55pm Ambulatory dysfunction inactive Ma y 2024 7:55pm Back pain inactive December 24, 2024 7:55pm Burst fracture of lumbar vertebra inactive December 24, 2024 7: 55pm Chronic anticoagulation inactive M ay 2024 7:55pm Closed compression fracture of lumbosacral spine inactive December 24, 2024 7:55pm Compression fracture of L2 inactive December 24, 2024 7:55pm Generalized weakness inactive December 24, 2024 7:55pm [...] 7:55pm Unable to care for self inactive [facility] 2024 7:55pm Compression fracture of L3 vertebra acute January 14, 2025 1 0:23am Status post kyphoplasty acute [facility] 2024 10:23am Acute cystitis without hematuria acu te March 08, 2025 10:32am Arthritis of left hip acute Feb 10:24am Compression fracture of L3 vertebra acute March 13, 2025 10:24am Low bone density acute February 10:24am Status post kyphoplasty acute J irlanda 2024 10:24am [facility] Work Phone: 1(229) 281-813303-30-2025 Consult note [facility] Medical Records Department [address] [place] [address] Pharmacokinetic/Renal -Consult 11/17/248 MR#: [id number] Acct: [id number] Name: LESLI ROSALES Rep #:[id number] : 1940 84 From: Maki Sher PCP: NISA GUTHRIE Status:ADM IN Y Location: ICU ICU04-1 [...] 11/17/24 1820 Date _ Maki Sher 11/17/24 183 > Isaura Signature (if applicable): Date Elsy Perdomo MD CC: ~ Signed [facility]03-30-2025 History and physical note [facility] Medical Records Department [address] [place] [address] H&P Exam - Hospitalist 11/17/24 1640 MR#: [id number] Acct: [id number] Name: LESLI ROSALES Rep #:[id number] : 1940 84 From: Elsy Perdomo MD PCP: NISA GUTHRIE Status:ADM IN Location: ICU ICU04-1 HPI - General General Date of Admission: 11/17/24 Date of Service: 11/17/24 Chief Complaint: Poor PO, nausea HPI Narrative LESLI ROSALES, is a an 84-year-old female with history of A-fib, psoriatic arthritis, COPD who presented [facility] ED 11/17/2024 with righthip pain with [...] abnormal for her, had not occurred prior. [facility] Medical History (Updated 11/17/24 @ 16:45 by [...] 85.3 H, Lymph % (Auto) 6.2 L, Sauk % (Auto) 7.5, Eos % (Auto) 0.0, [...] Sens 482 H*, [place] [address] H, Total Protein 7.3, Albumin 3.7, Globulin 3.6, Albumin/Globulin Ratio 1.0 11/17/24 13:37: Urine Color Yellow, Urine Clarity Sl. Cloudy, Urine pH 6.0, Ur Specific Laurel 1.020, Urine Protein 30 H, Urine Glucose [...] inability to confirm benign pathology. Reading Location: [facility] Hip/Pelvis X-Ray 11/17/24 15:21 IMPRESSION: DEGENERATIVE OSTEOARTHROSIS. NO ACUTE FINDINGS. Reading Location: [facility] Assessment & Plan Assessment/Plan (1) Septic [...] documentation, 78Minutes Charges/Coding Visit Charges Inpatient E&M: 43861 Init Hosp L3 11/17/24 1704 Cosigner Signature (if applicable): CC: Dr. Elsy Perdomo MD; NISA GUTHRIE~ Signed [facility]03-30-2025 Radiology Diagnostic study note [facility] Imaging Services [address] [place], [place] [id number] HIP, UNI W/ Pelvis 2-3 Views MR#: [id number] Acct: [id number] Name: LESLI ROSALES Rep #: [id number] : 1940 F 84 From: Nancy Nation MD PCP: NISA GUTHRIE Status: REG ER Study:HIP, UNI W/ Pelvis 2-3 Views Date of Ex am: 11/17/24 Exam# [id number] Ordering Dr: Yinka Pedraza DO PROCEDURE: HIP, [...] DEGENERATIVE OSTEOARTHROSIS. NO ACUTE FINDINGS. Reading Location: [facility] CC: Dr. Reza Pedraza DO; NISA GUTHRIE ~ Coat Baster: Signed [facility]03-30-2025 Radiology Diagnostic study note [facility] Imaging Services [address] [place], [place] [id number] Chest 1 View (Portable) MR#: [id number] Acct: [id number] Name: LESLI ROSALES Rep #: [id number] : 1940 F 84 From: Nancy Nation MD PCP: NISA GUTHRIE Status: REG ER Study:Chest 1 View (Portable) Date of Exam: 11/17/24 Exam# [id number] Ordering Dr: Yinka Pedraza DO PROCEDURE: CHEST [...] inability to confirm benign pathology. Reading Location: [facility] CC: Dr. Reza Pedraza DO; NISA GUTHRIE ~ Coat Baster: Signed [facility]01-30-2025 Telephone encounter Note* Telephone Encounter - Akshat Bermudez LPN - 09/19/2024 9:35 AM EST Spoke with Cesia at [facility]. Per our office records, patient was advised to continue Symbicort BID and Spiriva once per day. Will fax CT report and H&P to Dr. Guthrie ([phone]) Akshat Bermudez LPN [facility]01-30-2025 Miscellaneous Notes* Telephone Encounter - Akshat Bermudez LPN - 09/19/2024 9:35 AM EST Spoke with Cesia at [facility]. Per our office records, patient was advised to continue Symbicort BID and Spiriva once per day. Will fax CT report and H&P to Dr. Guthrie ([phone]) Akshat Bermudez LPN * Telephone Encounter - Tracy Mota LPN - 09/19/2024 8:45 AM EST [facility] call on behave of Dr. Ariadne Guthrie. Dr. Guthrie is questioning why patient is not on a controller inhaler. Please call office back at [phone]. Tracy Mota LPN documented in this encounterCleveland Clinic [facility]01-30-2025 Telephone encounter Note * Telephone Encounter - Tracy Mota LPN - 09/19/2024 8:45 AM EST [facility] call on behave of Dr. Ariadne Guthrie. Dr. Guthrie is questioning why patient is not on a controller inhaler. Please call office back at [phone]. Tracy Mota LPN [facility] Work Phone: [phone]) 951-584201-23-2025 History of Present illness Narrative* Keely Givens MD - 09/12/2024 11:45 AM EST Images from the original note were not included. . Respiratory Independence Note Patient name: Lesli Rosales PCP: Giselle Elizondo MD CC: Follow-up chest CT HPI: Lesli Rosales 84 year old female former less than 50-kywa-jagl smoker, quitting in 1975 with PMH significant for obesity, PAF, COPD, HTN, psoriatic arthritis, pulmonary nodules, chronic hypoxemic respiratory failure who was initially seen for possible pulmonary fibrosis. She was transferring her pulmonary care from the [facility]. I had no records, unable to [...] of smoking cessation Keely Givens MD Res[facility] Independence documented in this encounterCleveland Clinic [facility]01-23-2025 NoteHNO ID: [id number] Author: KEELY GIVENS MD Service: ? Author Type: Physician Type: Progress Notes Filed: 09/12/2024 13:47 Note Text: . Respiratory Independence Note Patient name: Lesli Rosales PCP: Giselle Elizondo MD CC: Follow-up chest CT HPI: Lesli Rosales 84 year old female former less than 08-gwyv-pjwc smoker, quitting in 1975 with PMH significant for obesity, PAF, COPD, HTN, psoriatic arthritis, pulmonary nodules, chronic hypoxemic respiratory failure who was initially seen for possible pulmonary fibrosis. She was transferring her pulmonary care from the [facility]. I had no records, unable to [...] COPD -She will c (more content not included)...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 Placed in provider's inbox for review. Route to ID for faxing. [facility]12-27-2024 Miscellaneous Notes* Telephone Encounter - Marjorie Redman LPN - 08/16/2024 3:42 PM EST Received 08/16/2024 from [facility]. Placed in provider's inbox for review. Route to ID for faxing. documented in this encounterCleveland Clinic [facility]12-19-2024 Telephone encounter Note * Telephone Encounter - Maddie Costa LPN - 08/08/2024 6:02 PM EST Fax sent [facility]12-19-2024 Miscellaneous Notes* Telephone Encounter - Maddie Costa LPN - 08/08/2024 6:02 PM EST Fax sent * Telephone Encounter - Marjorie Redman LPN - 07/31/2024 11:20 AM EST Orders from [facility] Received and placed in providers box * Telephone Encounter - Dania Jones - 07/31/2024 10:46 AM EST [employer] Caller Name: Giovanna Call Back Number [phone] Reason for Call: 5 year renewal on oxygen machine Additional Information: Faxed on 07-30-24. Checking on receipt of faxed oder. documented in this encounterCleveland Clinic [facility]12-11-2024 Telephone encounter Note * Telephone Encounter - Marjorie Redman LPN - 07/31/2024 11:20 AM EST Orders from [facility] Received and placed in providers box [facility]12-11-2024 Telephone encounter Note* Telephone Encounter - Dania Jones - 07/31/2024 10:46 AM EST [employer] Caller Name: Weldon Call Back Number [phone] Reason for Call: 5 year renewal on oxygen machine Additional Information: Faxed on 07-30-24. Checking on receipt of faxed oder. [facility] Work Phone: [phone] Telephone encounter Note* Telephone Encounter - Fernanda Coleman RN - 07/22/2024 2:29 PM EST Spoke to patient who is aware of results, MRI scheduled 07/26 [facility]12-02-2024 Miscellaneous Notes* Telephone Encounter - Fernanda Coleman RN - 07/22/2024 2:29 PM EST Spoke to patient who is aware of results, MRI scheduled 07/26 * Telephone Encounter - Ana Meza APRN.CNP [...] showed anything on the Pancreas. Please call doc. Patient has been identified by name and birthdate. Duration of symptoms: N/A Person calling: self Call patient at: at home [phone] (home) [phone] (cell) Was an appointment scheduled: No Closing statement: Results or non-symptom based questions: Thank you for calling [facility], your call will be returned within the next business day. Aurea Loya documented in this encounterCleveland Clinic [facility]12-02-2024 Telephone encounter Note * Telephone Encounter - [...] not already done so. Ana Meza APRN.MARJ [facility]12-02-2024 Telephone encounter Note* Telephone Encounter - Aurea Loya - 07/22/2024 10:19 AM EST Lesli is calling Giselle Elizondo MD today with concern regarding Results and Patient Question she would like to ask a nurse. She is asking if the US showed anything on the Pancreas. Please call royerw. Patient has been identified by name and birthdate. Duration of symptoms: N/A Person calling: self Call patient at: at home [phone] (home) [phone] (cell) Was an appointment scheduled: No Closing statement: Results or non-symptom based questions: Thank you for calling [facility], your call will be returned within the next business day. 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 HOSPITAL: No RADIOLOGY DEPARTMENT: Ultrasound PERIPHERAL IV DATA: Not applicable SIGNED BY: Valerie Gutierrez RDMS July 11, 2024 10:07 [facility]11-20-2024 Telephone encounter Note* Telephone Encounter - Ana Meza APRN.CNP - 07/10/2024 4:41 PM EST MRI re-ordered, medication sent Ana Meza APRN.CNP [facility]11-20-2024 Miscellaneous Notes* Telephone Encounter - Ana Meza APRN.CNP - 07/10/2024 4:41 PM EST MRI re-ordered, medication sent Ana Meza APRN.MARJ * Telephone Encounter - Chloe Hills - 07/10/2024 3:48 PM EST Lesli was [...] RX for valium be sent to her [facility] on file in [place]. Please advisChloe ulrich documented in this encounterCleveland Clinic [facility]11-20-2024 Telephone encounter Note * Telephone Encounter - Chloe Hills - 07/10/2024 3:48 PM EST Lesli was [...] RX for valium be sent to her [facility] on file in [place]. Please Chloe blank [facility]11-20-2024 NoteHNO ID: [id number] Author: ANA MEZA APRN.MARJ Service: ? Author Type: Nurse Practitioner Type: Progress Notes Filed: 07/10/2024 11:43 Note Text: This note was created using [employer] Technology[employer]. Subjective Lesli Rosales is a 84 year old female. Patient reports new onset epigastric pain starting about 3 weeks ago, radiates straight through to back. Only occurs with eating. Pain lasts for about a half hour. Takes famotidine every day for GERD, 20 mg in the morning. Pain does not come up into throat. History of hiatal hernia. Feels "hard" and swollen in epigastric area. Doesn't feel [...] (will be provided with radiology test) MRI PANC/MARCK Inject, intravenously, once for 1 dose. No [...] 145/88 Pulse 69 Ht 154 cm (5' 0.63") Wt 73 kg (160 lb 15 oz) [...] Recommend stat US, i (more content not included)...[facility]11-20-2024 History of Present illness Narrative* Ana Meza APRN.RN HEMODIALYSIS - 07/10/2024 10:05 AM EST This note was created using [employer]Build[employer]. Subjective Lesli Rosales is a 84 year old female. Patient reports new onset epigastric pain starting about 3 weeks ago, radiates straight through to back. Only occurs with eating. Pain lasts for about a half hour. Takes famotidine every day for GERD, 20 mg in the morning. Pain does not come up into throat. History of hiatal hernia. Feels "hard" and swollen in epigastric area. Doesn't feel [...] 1985 CHOLECYSTECTOMY HX COLONOSCOPY SCREENING EGD W/O [facility] SPEC VARICIES INJ REPAIR OF RECTOCELE REPAIR [...] (will be provided with radiology test) MRI PANC/MARCK Inject, intravenously, once for 1 dose. No [...] 145/88 Pulse 69 Ht 154 cm (5' 0.63") Wt 73 kg (160 lb 15 oz) [...] for repeat MRI for surveillance. - MRI PANC/MARCK WO/W IVCON; Future - MRI 3D POST PROCESSING; Future - iv contrast (will be provided with radiology test); MRI PANC/MARCK Inject, intravenously, once for 1 dose. No [...] link.Dispense: 1 Each; Refill: 0 Ana Meza APRN.RN HEMODIALYSIS documented in this encounterCleveland Clinic [facility]11-19-2024 Telephone encounter Note * Telephone Encounter - [...] for 07/10 for eval. Keerthi Hanson RN [facility]11-19-2024 Miscellaneous Notes* Telephone Encounter - Keerthi Hanson [...] for 07/10 for eval. Keerthi Hanson RN * Telephone Encounter - [...] calling: self Call patient at: at home [phone] (home) Was an appointment scheduled: No Closing statement: Symptom Call: Thank you for calling [facility], your call is very important. A nurse will call in approximately 2-4 hours during business hours. If this is an emergency, please contact 911. Aurea Loya documented in this encounterCleveland Clinic [facility]11-19-2024 Telephone encounter Note * Telephone Encounter - [...] calling: self Call patient at: at home [phone] (home) Was an appointment scheduled: No Closing statement: Symptom Call: Thank you for calling [facility], your call is very important. A nurse will call in approximately 2-4 hours during business hours. If this is an emergency, please contact 911. Aurea Loya [facility]10-29-2024 Telephone encounter Note* Telephone Encounter - Marjorie [...] Redman LPN June 18, 2024 10:46 AM [facility]10-29-2024 Miscellaneous Notes* Telephone Encounter - Marjorie Redman [...] 18, 2024 10:46 AM documented in this encounterCleveland Clinic [facility]10-25-2024 Telephone encounter Note * Telephone Encounter - Giselle Elizondo MD - 06/14/2024 5:09 PM EDT The following approved medication requests have been transmitted electronically. Requested Prescriptions Signed Prescriptions Disp Refills atenolol (TENORMIN) 25 mg tablet 90 tablet 3 Sig: Take 1 tablet by mouth once daily. Authorizing Provider: GISELLE ELIZONDO MD [facility]10-25-2024 Miscellaneous Notes* Telephone Encounter - Giselle Elizondo [...] 14, 2024 10:09 AM documented in this encounterCleveland Clinic [facility]10-25-2024 Telephone encounter Note * Telephone Encounter - [...] Dania Michele June 14, 2024 10:09 AM [facility] Work Phone: [phone]) 983-818110-18-2024 Emergency department Note* Cesia Sheth RN - 06/07/2024 8:02 PM EDT Patient left prior to receiving discharge papers Cesia Sheth RN 06/07/242002 [facility] Emergency department Note* Cesia Sheth RN - [...] 6:23 PM EDT [facility] report of chronic back pain. Pt states she has had back pain since March. She has seen PCP and also sees pain management. She is on multiple pain meds including [place] and Soma as well as gabapentin. She last took [place] at 1630 but states it did nothing. [...] follows with pain management. She is on [place], Soma, gabapentin. She was previously on Toradol. [...] Problem Relation Name Age of Onset Other (02571) Mother SOCIAL HISTORY Social History Socioeconomic History [...] Physician EKG interpretation can be found in [facility] (Per Emergency Physician): Interpretation per the [...] likely toharm the patient than diagnose SEA. [id number] SHARED DECISION MAKING: I discussed my risk assessment with the patient. The patient understands and consents to the risk of disposition/plan, as well as the risk of uncertainty in estimating outcomes. [id number] Diagnoses as of 06/07/241852 Chronic left-sided thoracic [...] sepsis, or septic shock (If yes use ".sepsiscoremeasure"): no FINAL IMPRESSION 1. Chronic left-sided thoracic back pain DISPOSITION Discharge 06/07/2024 06:35:36 PM PATIENT REFERRED TO: Giselle Elizondo [address] [place] [address] [place] [address] Schedule an appointment as soon as possible [...] signed) Emergency Medicine Provider Nieves Borja MD 06/07/245 documented in this [facility]10-18-2024 Emergency department Note* Yamila Sanchez RN - 06/07/2024 6:53 PM EDT Pt medicated per orders. Advised pt that she will be discharged after registration/med hold time. Pt trying to call a ride. Yamila Sanchez RN 06/07/247 [id number] Discharge instructions* Discharge Instructions* Nieves Borja MD - 06/07/2024 6:47 PM EDT Please follow up with your pain management doctor or PCP for further evaluation. * Attachments The following attachments cannot be sent through Care Everywhere. * Upper Back Pain Discharge Instructions (Swiss) documented in this [facility]10-18-2024 Emergency department Triage note* Yamila Sanchez RN - 06/07/2024 6:23 PM EDT Pt to ED5 via [facility] with report of chronic back pain. Pt states she has had back pain since March. She has seen PCP and also sees pain management. She is on multiple pain meds including [place] and Soma as well as gabapentin. She last took [place] at 1630 but states it did nothing. She is rating her pain 10/10. Pt able to move all extremities. She reports hx of sciatica and states this feels similar. Pain is around left flank to spine. It went down her left leg yesterday but not today. Pt is A&Ox3, respirations even and unlabored, skin warm and dry, no distress noted. [id number] Physician Emergency department Note* Nieves Borja MD [...] follows with pain management. She is on [place], Soma, gabapentin. She was previously on Toradol. [...] Problem Relation Name Age of Onset Other (06394) Mother SOCIAL HISTORY Social History Socioeconomic History [...] Physician EKG interpretation can be found in [facility] (Per Emergency Physician): Interpretation per the [...] likely toharm the patient than diagnose SEA. [id number] SHARED DECISION MAKING: I discussed my risk assessment with the patient. The patient understands and consents to the risk of disposition/plan, as well as the risk of uncertainty in estimating outcomes. [id number] Diagnoses as of 06/07/24 185 Chronic left-sided thoracic back pain Medications ketorolac [...] sepsis, or septic shock (If yes use ".sepsiscoremeasure"): no FINAL IMPRESSION 1. Chronic left-sided thoracic back pain DISPOSITION Discharge 06/07/2024 06:35:36 PM PATIENT REFERRED TO: Giselle Elizondo [address] [place] [address] [place] [address] Schedule an appointment as soon as possible [...] Emergency Medicine Provider Nieves Borja MD 06/07/241853 [facility] HospitalJposhw33-26-2193 Telephone encounter Note* Telephone Encounter - Terrie Hernandez RN - 06/05/2024 3:51 PM EDT Called patient to notify Rx was sent and provider's message about minimizing use. Patient voiced understanding. [facility]10-16-2024 Miscellaneous Notes* Telephone Encounter - Terrie Hernandez [...] her severe pain that was replaced with [place],then with Percocet. Minimal relief with icing. She [...] information in reference Protocols used: No Guideline [id number] * Telephone Encounter - Janneth Deras - [...] calling: self Call patient at: at home [phone] (home) [phone] (cell)- patient , prefers home phone Was an appointment scheduled: No Janneth Matute documented in this encounterCleveland Clinic [facility]10-16-2024 Telephone encounter Note * Telephone Encounter - [...] up with pain mgt. Giselle Elizondo MD [facility]10-15-2024 Telephone encounter Note* Telephone Encounter - Giselle Elizondo MD - 06/04/2024 3:21 PM EDT The following approved medication requests have been transmitted electronically. Requested Prescriptions Signed Prescriptions Disp Refills carisoprodol (SOMA) 350 mg tablet 30 tablet 0 Sig: Take 1 tablet by mouth at bedtime as needed for up to 30 days. Authorizing Provider: GISELLE ELIZONDO MD [facility]10-15-2024 Miscellaneous Notes* Telephone Encounter - Giselle Elizondo [...] Please send refill to her [facility] documented in this encounterCleveland Clinic [facility]10-15-2024 Telephone encounter Note * Telephone Encounter - [...] help in time being. Keerthi Hanson RN [facility]10-15-2024 Telephone encounter Note* Telephone Encounter - Maddie Costa LPN - 06/04/2024 1:50 PM EDT Pended, please advise. [facility]10-15-2024 Telephone encounter Note* Telephone Encounter - Giselle Elizondo MD - 06/04/2024 1:23 PM EDT Rib x ray shows fractures as before, described as age indeterminate. No sign of a thoracic compression fracture . No new insight on source of pain from these images. Follow up with pain mgt, return to office if no relief in a week. Giselle Elizondo MD [facility]10-15-2024 Telephone encounter Note* Telephone Encounter - Keerthi Hanson RN - 06/04/2024 1:06 PM EDT PCP: please review results of 10/9 xray and advise. Keerthi Hanson RN [facility]10-15-2024 Telephone encounter Note* Telephone Encounter - Aurea Loya - 06/04/2024 12:52 PM EDT Patient is calling stating she is still in a lot of pain and that she did not receive a call back from Dr. Elizondo about her xrays last week. She is asking for a call back today as she stated she can hardly stand the pain. [facility]10-15-2024 Telephone encounter Note* Telephone Encounter - Aurea Loya - 06/04/2024 12:46 PM EDT Patient calling for a refill of : carisoprodol (SOMA) 350 mg tablet (not in current refill list) Please send refill to her [facility]10-11-2024 Telephone encounter Note* Telephone Encounter - Terrie Hernandez RN - 05/31/2024 1:35 PM EDT Called patient. She said Dr. Hall put her on Percocet, she has lidocaine patches, and is taking gabapentin. She said she is not taking the tramadol anymore, because of her severe pain that was replaced with [place],then with Percocet. Minimal relief with icing. 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 Author [...] A-fib (HCC) Chronic obstructive pulmonary disease (COPD) ([facility]) Hypertension Lung nodules Psoriasis Psoriatic arthritis ([facility]) PHYSICAL EXAMINATION BP 157/85 Pulse 62 Ht 154 cm (5' 0.63") Wt 75 kg (165 lb 5.5 oz) [...] May 29, 2024 10:55 AM Provider Attestation: IGiselle MD, personally performed the services described in this documentation. All medical record entries made by the scribe were at my direction and in my telephonic presence. I have reviewed the chart and discharge instructions (if applicable), and agree that the record reflects my personal performance and is accurate and complete. Electronically Signed: Giselle Elizondo MD May 29, 2024 1:57 [facility]10-09-2024 History of Present illness Narrative* Giselle Elizondo [...] HISTORY PAST MEDICAL HISTORY Diagnosis Date A-fib ([facility]) Chronic obstructive pulmonary disease (COPD) ([facility]) Hypertension Lung nodules Psoriasis Psoriatic arthritis ([facility]) PHYSICAL EXAMINATION BP 157/85 Pulse 62 Ht 154 cm (5' 0.63") Wt 75 kg (165 lb 5.5 oz) [...] MD May 1:57 PM documented in this encounterC[facility]10-08-2024 Telephone encounter Note * Telephone Encounter - [...] osteoporosis, chronic steroid use) Protocols used: Chest Wzbjjn-OUQLL-MN [facility]10-08-2024 Miscellaneous Notes* Telephone Encounter - Fernanda Coleman [...] osteoporosis, chronic steroid use) Protocols used: Chest Fsnjno-FHRFX-RV documented in this encounterCleveland Clinic [facility]09-30-2024 Telephone encounter Note * Telephone Encounter - [...] tablet by mouth daily with dinner. Susie Carline Michele May 20, 2024 11:00 AM [facility]09-30-2024 Miscellaneous Notes* Telephone Encounter - Susie Cordon [...] tablet by mouth daily with dinner. Susie Crowley [facility] May 20, 2024 11:00 AM documented in this encounterCleveland Clinic [facility]09-18-2024 Note* Addendum Note - Ana Mace APRN.CNP - 05/08/2024 2:50 PM EDTAddended by: ANA MACE on: 05/08/2024 02:50 PM Modules accepted: Orders [facility]09-18-2024 Miscellaneous Notes* Addendum Note - Ana Mace APRN.CNP - 05/08/2024 2:50 PM EDTAddended by: ANA MACE on: 05/08/2024 02:50 PM Modules accepted: Orders * Addendum Note - Maddie Costa LPN - 05/08/2024 2:34 PM EDTAddended by: MADDIE COSTA on: 05/08/2024 02:34 PM Modules accepted: Orders * Telephone Encounter - Maddie Costa LPN - 05/08/2024 2:01 PM EDT Response via covermymeds: LESLI ROSALES (Romero: [id number]) [place] Rx #: [id number] Need Help? Call us at Outcome N/A today by impok Medicare 2017 [facility] This medication or product is on your plan's list of covered drugs. Prior authorization is not required at this time. If your pharmacy has questions regarding the processing of your prescription, please have them call the [facility] pharmacy help desk at . Called pt insurance, confirmed medication does not need a PA. [facility] [place] [facility]. Called and notified pt. Medication just needs sent to updated pharmacy. Pended. Please advise. * Telephone Encounter - Maddie Costa LPN - 05/08/2024 10:51 AM EDT PA submitted through covermymeds. Response pending * Telephone Encounter - Janneht Deras - 05/08/2024 9:25 AM EDT Lesli is calling Giselle Elizondo MD today to advise per [facility] [place] the medication Tiotropium ( Spiriva with handihaler) 18 mcg inhalation capsule Will need a prior authorization Patient is noting she has only 5 capsules left Please advise when PA has been completed Patient has been identified by name and birthdate. Duration of symptoms: N/A Person calling: self Call patient at: cell phone please [phone] (cell) Was an appointment scheduled: No Closing statement: Prior Authorization Calls: Thank you for calling [facility], your call will be returned within the next 24 hours or next business day. Janneth Matute documented in this encounterCleveland Clinic [facility]09-18-2024 Note* Addendum Note - Maddie Costa LPN - 05/08/2024 2:34 PM EDTAddended by: MADDIE COSTA on: 05/08/2024 02:34 PM Modules accepted: Orders [facility]09-18-2024 Telephone encounter Note* Telephone Encounter - Maddie Costa LPN - 05/08/2024 2:01 PM EDT Response via covermymeds: LESLI ROSALES ([place]: [id number]) [place] Rx #: [id number] Need Help? Call us at Outcome N/A today by impok Medicare 2017 [employer] This medication or product is on your plan's list of covered drugs. Prior authorization is not required at this time. If your pharmacy has questions regarding the processing of your prescription, please have them call the impok pharmacy help desk at . Called pt insurance, confirmed medication does not need a PA. [facility] [place] as [facility] previous pharmacy closed. Called and notified pt. Medication just needs sent to updated pharmacy. Pended. Please advise. [facility]09-18-2024 Telephone encounter Note* Telephone Encounter - Maddie Costa LPN - 05/08/2024 10:51 AM EDT PA submitted through coverBenjamin's Deskmeds. Response pending [facility]09-18-2024 Telephone encounter Note* Telephone Encounter - Janneth Deras - 05/08/2024 9:25 AM EDT Lesli is calling Giselle Elizondo MD today to advise per [facility] [place] the medication Tiotropium ( Spiriva with handihaler) 18 mcg inhalation capsule Will need a prior authorization Patient is noting she has only 5 capsules left Please advise when PA has been completed Patient has been identified by name and birthdate. Duration of symptoms: N/A Person calling: self Call patient at: cell phone please [phone] (cell) Was an appointment scheduled: No Closing statement: Prior Authorization Calls: Thank you for calling [facility], your call will be returned within the next 24 hours or next business day. Janneth Matute [facility]09-09-2024 History of Present illness Narrative* Keely Givens MD - 04/29/2024 11:00 AM EDT Images from the original note were not included. . Respiratory Independence Note Patient name: Lesli Rosales PCP: Giselle Elizondo MD Referring Physician: CC: Follow-up CT and COPD HPI: Lesli Rosales 84 year old female former [id number] smoker quitting in 1975 with PMH significant for obesity, paroxysmal atrial fibrillation, COPD, HTN, psoriatic arthritis, pulmonary nodules, chronic hypoxemic respiratory failure who recently presented for evaluation of possible pulmonary fibrosis. Patient was transferring her care from [facility]. She is a very poor historian and I had no records available for review. For inhaled therapy, she was on Spiriva HandiHaler and Symbicort. Multiple requests from [facility] for imaging had been unsuccessful. She [...] DATE OF EXAM: Jan 19 2024 10:56AM [facility] 0541 - CT CHEST WO IVCON / [...] lobe. PAST MEDICAL HISTORY No date: A-fib ([facility]) No date: Chronic obstructive pulmonary disease (COPD) ([facility]) No date: Hypertension No date: Lung nodules No date: Psoriasis No date: Psoriatic arthritis ([facility]) ALLERGIES No Known Allergies carisoprodol (SOMA) 350 [...] EXAMINATION: BP 138/90 Pulse 57 Ht 5' .63" (1.54m) Wt 165 lb 12.8 oz (75.2kg) [...] of the chest Keely Givens MD [facility] documented in this encounterCleveland Clinic [facility]08-20-2024 Telephone encounter Note * Telephone Encounter - Maddie Costa LPN - 04/09/2024 11:51 AM EDT Received rib xray from [facility]. Placed in provider's inbox for review. Route to MA scanning [facility]08-20-2024 Miscellaneous Notes* Telephone Encounter - Maddie Costa LPN - 04/09/2024 11:51 AM EDT Received rib xray from [facility]. Placed in provider's inbox for review. Route to MA scanning documented in this encounterCleveland Clinic [facility]08-16-2024 Telephone encounter Note * Telephone Encounter - Giselle Elizondo MD - 04/05/2024 4:11 PM EDT The following approved medication requests have been transmitted electronically. Requested Prescriptions Signed Prescriptions Disp Refills carisoprodol (SOMA) 350 mg tablet 30 tablet 0 Sig: Take 1 tablet by mouth at bedtime as needed for up to 30 days. Authorizing Provider: GISELLE ELIZONDO MD [facility]08-16-2024 Miscellaneous Notes* Telephone Encounter - Giselle Elizondo [...] 04, 2024 9:57 AM documented in this encounterCleveland Clinic [facility]08-16-2024 Telephone encounter Note * Telephone Encounter - Ana Hernandez MA - 04/05/2024 11:57 AM EDT Routed to provider yesterday. Please allow 24-48 hours for a response. Patient notified. [facility]08-16-2024 Telephone encounter Note* Telephone Encounter - Anthony Michele Dania M - 04/05/2024 10:57 AM EDT Patient is checking on the status of her refill request [facility] Work Phone: [phone] Telephone encounter Note* Telephone Encounter - Anthony Michele Dania M - 04/04/2024 9:56 AM EDT Prescription Refill [...] Dania Michele April 04, 2024 9:57 AM [facility]08-07-2024 Telephone encounter Note* Telephone Encounter - Keri Randolph RN - 03/27/2024 10:26 AM EDT Patient phones requesting refills as follows: Requested Prescriptions Pending Prescriptions Disp Refills budesonide-formoterol (SYMBICORT) 160-4.5 mcg/actuation inhaler 1 Each 11 Sig: Inhale 2 Puffs as instructed two times a day. Please review and advise. Keri Randolph RN [facility]08-07-2024 Miscellaneous Notes* Telephone Encounter - Keri Randolph RN - 03/27/2024 10:26 AM EDT Patient phones requesting refills as follows: Requested Prescriptions Pending Prescriptions Disp Refills budesonide-formoterol (SYMBICORT) 160-4.5 mcg/actuation inhaler 1 Each 11 Sig: Inhale 2 Puffs as instructed two times a day. Please review and advise. Keri Randolph RN documented in this encounterCleveland Clinic [facility]07-19-2024 Telephone encounter Note * Telephone Encounter - Giselle Elizondo MD - 03/08/2024 10:09 AM EDT The following approved medication requests have been transmitted electronically. Requested Prescriptions Signed Prescriptions Disp Refills tiotropium (SPIRIVA WITH HANDIHALER) 18 mcg inhalation capsule 30 capsule 5 Sig: inhale THE CONTENTS OF ONE CAPSULE IN THE HANDIHALER every morning Authorizing Provider: GISELLE ELIZONDO MD [facility]07-19-2024 Miscellaneous Notes* Telephone Encounter - Giselle Elizondo [...] 03/08/2024 10:02 AM EDT Pharmacy verified in [facility] Patient has been identified by name [...] advise. Nadia Jesus MA documented in this encounterCleveland Clinic [facility]07-19-2024 Telephone encounter Note * Telephone Encounter - Nadia Jesus MA - 03/08/2024 10:02 AM EDT Pharmacy verified in [facility] Patient has been identified by name [...] Not applicable Please advise. Nadia Jesus MA [facility]07-01-2024 Telephone encounter Note* Telephone Encounter - Maddie Costa LPN - 02/19/2024 4:00 PM EDT Received visit summary from [facility]. Placed in provider's inbox for review. Route to MA scanning [facility]07-01-2024 Miscellaneous Notes* Telephone Encounter - Maddie Costa LPN - 02/19/2024 4:00 PM EDT Received visit summary from [facility]. Placed in provider's inbox for review. Route to MA scanning documented in this encounterCleveland Clinic [facility]06-25-2024 Telephone encounter Note * Telephone Encounter - Maddie Costa LPN - 02/13/2024 9:56 AM EDT Received carotid duplex us from [facility]. Placed in provider's inbox for review. Route to MA scanning [facility]06-25-2024 Miscellaneous Notes* Telephone Encounter - Maddie Costa LPN - 02/13/2024 9:56 AM EDT Received carotid duplex us from [facility]. Placed in provider's inbox for review. Route to MA scanning documented in this encounterCleveland Clinic [facility]06-12-2024 Telephone encounter Note * Telephone Encounter - Akshat Bermudez LPN - 01/31/2024 9:10 AM EDT Patient notified report is at 2nd floor PSS desk for tack picker Akshat Bermudez LPN [facility]06-12-2024 Miscellaneous Notes* Telephone Encounter - Akshat Bermudez LPN - 01/31/2024 9:10 AM EDT Patient notified report is at 2nd floor PSS desk for tack picker Akshat Bermudez LPN * Telephone Encounter - Lorena Gustafson MA - 01/31/2024 8:34 AM EDT Patient calling and asking if she can have a copy of her lung scan report? She would like it left at the director of front office. She will be here today around 2:30? She would like a call when the report is readyfor tack picker. * Telephone Encounter - Keri Randolph RN - 01/26/2024 4:36 PM EDT Called and spoke with the patient. Patient reports increased sob but denies any increased cough, sputum production, fevers/chills. Keri Randolph RN * Telephone Encounter - Keri Randolph RN - 01/26/2024 4:35 PM EDT Images from the original note were not included. Dania Kent PA-C [facility] Pulmonology Pool; Akshat Bermudez LPN13 minutes [...] 01/19/24. Keri Randolph RN documented in this encounterCleveland Clinic [facility]06-12-2024 Telephone encounter Note * Telephone Encounter - Lorena Gustafson MA - 01/31/2024 8:34 AM EDT Patient calling and asking if she can have a copy of her lung scan report? She would like it left at the director of front office. She will be here today around 2:30? She would like a call when the report is readyfor tack picker. [facility]06-11-2024 Telephone encounter Note* Telephone Encounter - Keely Givens MD - 01/30/2024 4:17 PM EDT Spoke to Lesli regarding most recent chest CT. Minimal areas of subpleural reticulations in lower lobes. Three nodules, largest in RLL, calcified with new area of adjacent ground glass infiltrate,bronchiectasis and mild emphysema. She will need a follow-up CT. [facility]06-11-2024 Miscellaneous Notes* Telephone Encounter - Keely Givens MD - 01/30/2024 4:17 PM EDT Spoke to Lesli regarding most recent chest CT. Minimal areas of subpleural reticulations in lower lobes. Three nodules, largest in RLL, calcified with new area of adjacent ground glass infiltrate,bronchiectasis and mild emphysema. She will need a follow-up CT. documented in this encounterCleveland Clinic [facility]06-07-2024 Telephone encounter Note * Telephone Encounter - Keri Randolph RN - 01/26/2024 4:36 PM EDT Called and spoke with the patient. Patient reports increased sob but denies any increased cough, sputum production, fevers/chills. Keri Randolph RN [facility]06-07-2024 Telephone encounter Note* Telephone Encounter - Keri Randolph RN - 01/26/2024 4:35 PM EDT Images from the original note were not included. Dania Kent PA-C [facility] Pulmonology Pool; Akshat Bermudez LPN13 minutes ago (4:18 PM) Please check on symptoms. Patient has groundglass area around nodule that was not on previous scan.Is she having increased cough, sputum production, fevers/chills? Massiel [facility]06-07-2024 Telephone encounter Note* Telephone Encounter - Keri Randolph RN - 01/26/2024 2:51 PM EDT Patient calling in asking about the results from the Chest CT done on 01/19/24. Keri Randolph RN [facility]06-06-2024 NoteHNO ID: [id number] Author: MADDIE COSTA LPN Service: ? Author Type: LICENSED NURSE Type: Progress Notes Filed: 01/25/2024 11:51 Note Text: Called pt and informed of lab result. Pt indicated [facility]05-31-2024 History of Present illness Narrative* Jomar Arredondo, CT - 01/19/2024 11:00 AM EDT Radiology [...] PATIENT PRESENTS WITH AN IMPLANTABLE OR ATTACHED FOOD SERVICE WORKER HOSPITAL: No RADIOLOGY DEPARTMENT: CT; Exam(s) Completed: Chest PERIPHERAL IV DATA: Not applicable SIGNED BY: JACK Castro January 19, 2024 10:57 AM documented in this encounterCleveland Clinic [facility]05-31-2024 NoteHNO ID: [id number] Author: JOMAR ARREDONDO CT Service: Radiology Author [...] PATIENT PRESENTS WITH AN IMPLANTABLE OR ATTACHED FOOD SERVICE WORKER HOSPITAL: No RADIOLOGY DEPARTMENT: CT; Exam(s) Completed: Chest PERIPHERAL IV DATA: Not applicable SIGNED BY: JACK Castro January 19, 2024 10:57 [facility]* Patient Instructions* Giselle Elizondo MD - 01/17/2024 1:57 PM EDT Screening schedule The following prevention plan is recommended: Pneumococcal Vaccine: 65+(1 of 2 - PCV) Never done DTaP,Tdap,Td Vaccine(1 - Tdap) Never done Shingrix Vaccine(1 of 2) Never done RSV Vaccine(1 - 1-dose 60+ series) Never done Advance Directive Discussion Never done Behavioral Health Screening Never done Covid-19 Vaccine(2022- season) due on 10/24/2023 WHAT YOU CAN [...] review all the medicines you take, even lrmw-mvz-kfvwfrg medicines. As you get older, the way [...] review all the medicines you take, even svew-ipu-ykkodis medicines. As you get older, the way [...] have certain medical conditions. documented in this encounterCleveland Clinic [facility]05-29-2024 History of Present illness Narrative* Giselle Elizondo MD - 01/17/2024 1:43 PM EDT Images from the original note were not included. Lesli Rosales is a 83 year old female here for a Medicare wellness visit. Neuro - Admits to having troubles with her memories - Feels off balance, "wobbly" - Has not been to physical therapy - Has trouble stepping down/up curbs without holding onto something, can not walk a straight line - States "Must be old age I guess" Skin - Has a "splotch" on her back - Onset more than 2 months ago - Seen by master rigger a few weeks ago - Was given [...] 143/85 Pulse 60 Ht 154 cm (5' 0.63") Wt 75 kg (165 lb 5.5 oz) [...] January 17, 2024 1:43 PM Provider Attestation: I, Giselle Elizondo MD, personally [...] 17, 2024 5:21 PM documented in this encounterCleveland Clinic [facility]05-22-2024 Telephone encounter Note * Telephone Encounter - Marjorie Redman LPN - 01/10/2024 2:42 PM EDT Patient will have lab drawn the day of appointment. [facility]05-22-2024 Miscellaneous Notes* Telephone Encounter - Marjorie Redman [...] ok Giselle Elizondo MD documented in this encounterCleveland Clinic [facility]05-22-2024 Telephone encounter Note * Telephone Encounter - Ana Mace APRN.CNP - 01/10/2024 1:47 PM EDT Lab ordered, nonfasting Ana Mace APRN.CNP [facility]05-22-2024 Telephone encounter Note* Telephone Encounter - Maddie [...] be discussed at that time. Please advise. [facility]05-21-2024 Telephone encounter Note* Telephone Encounter - Marjorie Redman LPN - 01/09/2024 4:16 PM EDT Voicemail not activated. [facility]05-21-2024 Telephone encounter Note* Telephone Encounter - Giselle Elizondo MD - 01/09/2024 3:39 PM EDT Blood count ok Giselle Elizondo MD [facility]05-17-2024 Telephone encounter Note* Telephone Encounter - Akshat Bermudez LPN - 01/05/2024 10:02 AM EDT Noted. Thank you! [facility]05-17-2024 Miscellaneous Notes* Telephone Encounter - Akshat Bermudez LPN - 01/05/2024 10:02 AM EDT Noted. Thank you! * Telephone Encounter - Antonina Godinez - 01/05/2024 9:48 AM EDT Patient called and is dropping off her Pulmonology report of her CT back in 2021 from [facility] in the next few weeks. Antonina Godinez documented in this encounterCleveland Clinic [facility]05-17-2024 Telephone encounter Note * Telephone Encounter - Antonina Godinez - 01/05/2024 9:48 AM EDT Patient called and is dropping off her Pulmonology report of her CT back in 2021 from [facility] in the next few weeks. Antonina Godinez [facility] Work Phone: [phone]) 934-435905-09-2024 History of Present illness Narrative* Keely Givens MD - 12/28/2023 10:30 AM EDT Images from the original note were not included. . Respiratory Independence Note Patient name: Lesli Rosales PCP: Giselle Elizondo MD Referring Physician: HPI: Lesli Rosales 83 year old female former 91-rvtv-nhzq smoker, quitting in 1975 with PMH significant for obesity, PAF, COPD, HTN, psoriatic arthritis, pulmonary nodules, possible pulmonary fibrosis, oxygen need. At initial visit, patient was transferring care from [facility]. She is hector poor historian and no records available for review. She was not using her inhaler therapy corre ctly, using Breztri like a rescue inhaler. Current inhaled therapy consists of Spiriva handihaler and Symbicort. 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 Numerous requests from [facility] for records specifically imaging imaging (especially in light of "IPF") have been unsuccessful. Recent abdominal CT with lower lung cuts images donot confirm fibrotic lung disease. She states she has been more short of breath with less activity,feeling fatigued. She has been using her oxygen more often. No specific cough, sputum production, wheezing or chest pain. He does have back pain related to postherpetic neuralgia. DME: [employer] 2 L DATA: Labs: Component Ref Range & Units 4 wk ago SARS-CoV-2 (Agent of COVID-19) See comment Not detected Influenza A PCR Not Detected Not detected Influenza B PCR Not Detected Not detected RSV PCR Not Detected Not detected Imaging / Diagnostic Studies: DATE OF EXAM: Jun 14 2023 11:18AM [facility] 0530 - CT ABD/PEL W IVCON / [...] 1985 CHOLECYSTECTOMY HX COLONOSCOPY SCREENING EGD W/O [facility] SPEC VARICIES INJ REPAIR OF RECTOCELE REPAIR [...] to confirm Former cigarette smoker -Former remote 94-cbew-bbpz smoker -Patient does not qualify for lung cancer screening based on the duration of her smoking cessation and her age Keely Givens MD [facility] documented in this encounterCleveland Clinic [facility]04-08-2024 Miscellaneous Notes* Telephone Encounter - Yadira Fernández PA-C - 11/27/2023 10:33 AM EDT Spoke to patient. Informed her that testing was negative for COVID-19, influenza, and RSV. documented in this encounterCleveland Clinic [facility]04-07-2024 History of Present illness Narrative* Eula Gabriel APRN.RN HEMODIALYSIS - 11/26/2023 2:59 PM EDT This note was created using NoteWriter. Subjective Lesli Rosales is a 83 year [...] - RAPID STREP TEST B/O Eula Gabriel APRN.RN HEMODIALYSIS documented in this encounterCleveland Clinic [facility]03-21-2024 Miscellaneous Notes* Telephone Encounter - Maddie Costa [...] range. Giselle Elizondo MD documented in this encounterCleveland Clinic [facility] For Rehabilitation03-20-2024 Miscellaneous Notes* Telephone Encounter - Giselle Elizondo [...] they are available. Please call her at [phone]. * Telephone Encounter - Dilma Gonsalez - 11/08/2023 12:54 PM EDT Patient said she spoke to a nurse last night and asked for Dr. Elizondo to review her labs. Said she also asked for a refill of Soma. She is upset that no one has called her back. In the [employer] message from yesterday, it is noted someone tried to call the patient at 5:17 pm; noanswer and vm not set up. Patient said that no one ever called her. There was nothing noted about her requesting a refill of Soma. It is not on her current med list. Please review. She uses [facility] in [place]. She wants a call back at [phone]. documented in this encounterCleveland Clinic [facility]03-14-2024 History of Present illness Narrative* Danae Gerardo [...] labs: Medicare Annual Wellness Visit 12/25/2023 in [facility] with KEELY GIVENS - 6 MTH F/U COPD 01/17/2024 in [facility] with GISELLE ELIZONDO - medicare wellness Navigation Signature: Danae Gerardo MA November 02, 2023 2:35 PM documented in this encounterCleveland Clinic [facility]02-15-2024 Miscellaneous Notes* Telephone Encounter - Marjorie Redman LPN - 10/05/2023 8:23 AM EST Pharmacy verified in [facility] Patient has been identified by name [...] advise. Marjorie Redman LPN documented in this encounterCleveland Clinic [facility] Rehabilitation02-12-2024 Miscellaneous Notes* Telephone Encounter - Marjorie Redman LPN - 10/02/2023 10:43 AM EST Pharmacy verified in [facility] Patient has been identified by name [...] advise. Marjorie Redman LPN documented in this encounterCleveland Clinic [facility] Rehabilitation02-08-2024 History of Present illness Narrative* Giselle Elizondo [...] 136/79 Pulse 65 Ht 154 cm (5' 0.63") Wt 74 kg (163 lb 2.3 oz) [...] September 28, 2023 1:02 PM Provider Attestation: I, Giselle Elizondo MD, personally [...] September 28, 2023 2:53PM documented in this encounterCleveland Clinic Children'[facility]01-30-2024 Miscellaneous Notes* Telephone Encounter - Dania Jones - 09/19/2023 10:10 AM EST Patient is out of medication. * Telephone Encounter - Dania Jones - 09/19/2023 10:09 AM EST Pharmacy verified in [facility] Patient has been identified by name [...] kg (164 lb) Not applicable Please advise. Dania Michele documented in this encounterCleveland Clinic Children[facility] Rehabilitation12-22-2023 Telephone encounter Note * Telephone Encounter - [...] and incidence of candidiasis. Do not swallow.. [facility] [id number] Miscellaneous Notes* Telephone Encounter - Gregory Christopher [...] candidiasis. Do not swallow.. documented in this [facility]11-30-2023 History of Present illness Narrative* Allegra Bermudez RT(R) - 07/20/2023 11:15 AM EST Radiology [...] Completed: Body: Pancreas/Biliary SIGNATURE: Allegra Bermudez RDMS, DAGOBERTOTPage Estevez ([facility]) PATIENT NAME: Lesli Rosales DATE: July 20, 2023 TIME: 11:35 AM documented in this [facility]11-29-2023 History of Present illness Narrative* Keely Givens MD - 07/19/2023 10:15 AM EST Despite multiple requests from [facility] [employer], have not received pathology reports of lung biopsy from 2012 and 2016 nor PACS images of last chest CT from 2020. Did receive office notes (not helpful as these are available in Care Everywhere) but did receive latest PFT data (very small print difficult to read): FVC 1.30 L 58% FEV1 0.70 L45% FEV1/FVC 50% DLCO 6.38 28% documented in this [facility]11-17-2023 Miscellaneous Notes* Telephone Encounter - Giselle [...] 07/07/2023 3:40 PM EST Pharmacy verified in [facility] Patient has been identified by name [...] Marjorie Redman LPN * Telephone Encounter - Wesdomo Giovani Janneth - 07/07/2023 2:23 PM EST Lesli Rosales is calling Giselle Elizondo MD today to request a medication not on current med list Carisoprodol (SOMA) 350 mg tablet Please send to [facility] when provider agrees for this fill Patient has been identified by name and birthdate. Duration of symptoms: ongoing Person calling: self Call patient at: at home [phone] (home) [phone] (work) [phone] (cell) Was an appointment scheduled: No Closing statement: Results or non-symptom based questions: Thank you for calling [facility], your call will be returned within the next business day. Janneth Matute documented in this encounterCleveland Clinic Children'S [facility]10-27-2023 History of Present illness Narrative* Keely Givens MD - 06/16/2023 3:15 PM EDT Images from the original note were not included. . Respiratory Independence Note Patient name: Lesli Rosales PCP: Giselle [...] 1984 CHOLECYSTECTOMY HX COLONOSCOPY SCREENING EGD W/O BRS SPEC VARICIES INJ REPAIR OF RECTOCELE REPAIR [...] albuterol rescue inhaler -Request records from previous casting cleaner 2. Restrictive lung disease -Crackles on exam and mention of fibrosis but report of last chest CT does not mention reticulations or evidence of fibrosis -Request PACS images of last chest CT 2. Lung nodules -By report, lung nodules have been stable for more than 5 years which would suggest no need for further yearly surveillance -[facility]. Former cigarette smoker -Former smoker with sequelae of COPD -Patient does not meet criteria for lung cancer screening based on her age and duration of smoking cessation Keely Givens MD Respiratory Independence documented in this encounterCleveland Clinic Children'[facility] Rehabilitation10-27-2023 History of Present illness Narrative* Emilie Hayes RPFT - 06/16/2023 2:59 PM EDT PULM FUNCTION SMARTBLOCK: Provider: Ruby Prater APRN.RN HEMODIALYSIS Assisting Tech: Emilie Hayes RPFT Spirometry: 1 DLCO: 1 documented in this encounterCleveland Clinic Children'S [facility] For Rehabilitation10-27-2023 Miscellaneous Notes* Telephone Encounter - Fernanda Horne [...] pulmonary standpoint would plan for procedure at [facility]. Fernanda Horne PA-C documented in this encounterCleveland Clinic Children'[facility] Rehabilitation10-23-2023 Miscellaneous Notes* Telephone Encounter - Ana Hernandez Ma - 06/12/2023 6:59 PM EDT Last appointment: 11/28/22 Next appointment: n/a Pharmacy verified in [facility]. Refill(s) requested: Requested Prescriptions Pending Prescriptions Disp Refills rivaroxaban (XARELTO) 20 mg tablet 90 tablet 3 Sig: Take 1 tablet by mouth daily with dinner. Order(s) pended. Please advise. Ana Hernandez Ma, DARRIN documented in this encounterCleveland Clinic Children'[facility] For Rehabilitation10-04-2023 Miscellaneous Notes* Telephone Encounter - Danae Garcia - 05/24/2023 2:34 PM EDT Had a hard time scheduling the [place] appt. Called patient and gave her number to schedule * Telephone Encounter - Ruby Prater APRN.CNP - 05/23/2023 4:35 PM EDT Orders placed. Please assist in scheduling. * Telephone Encounter - Maddie Costa - 05/23/2023 1:56 PM EDT Called pt and she stated [facility] would be most convenient for her. Please assist pt with scheduling. * Telephone Encounter - Ana Mace APRN.CNP - 05/22/2023 5:13 PM EDT Sorry that message was sent before I finished it. Barnes, Morgan, or Romulo have providers thatmight be more convenient for her. Ana Mace APRN.CNP * Telephone Encounter - Ana Mace APRN.CNP - 05/22/2023 5:13 PM EDT There are providers in [place] * Telephone Encounter - Dilma Gonsalez - 05/22/2023 4:21 PM EDT Patient stated she is looking for a new lung doctor. Wants to know if Dr. Rebollar can recommend someone closer for her. Said her last doctor was at [facility] and she doesn't want to have to drive all the way to [place] anymore. Please advise at [phone]. Or [phone]. documented in this encounterCleveland Clinic Children'[facility]10-02-2023 Instructions* Patient Instructions* Fernanda Horne PA-C - [...] well to regulate bowels documented in this encounterCleveland Clinic Children'[facility] Rehabilitation10-02-2023 History of Present illness Narrative* Fernanda Horne [...] RELIEF) 50 mcg/actuation nasal spray Use 1 Maxton in each nostril twicedaily. betamethasone valerate 0.1 [...] 132/80 Pulse 70 Ht 154.9 cm (5' 1") BMI 33.44 kg/m Physical Exam Constitutional: General: [...] which included preparing to see the patient, [id number] patient care, completing clinical documentation, obtaining and/or reviewing separately obtained history, performing a medically appropriate examination, counseling and educating the pat ient/family/caregiver, ordering medications, tests, or procedures, communicating with other HCPs (not separately reported), independently interpreting results (not separately reported), communicatingresults to the patient/family/caregiver, and care coordination (not separately reported). Fernanda Horne PA-C May 22, 2023 11:56 AM documented in this encounterCleveland Clinic Children'[facility] Rehabilitation09-27-2023 History of Present illness Narrative* Loan Madrigal PA-C - 05/17/2023 10:10 AM EDT Pulmonary Follow-up [address] [place] [id number] Visit type: Established patient Reason for Visit: [...] stated that they are currently in the state [facility]. If the patient is a minor, [...] Problem Relation Name Age of Onset Other (05931) Mother ROS: Review of Systems Constitutional: Negative [...] day of the visit. documented in this [place] [address]-04-2023 Miscellaneous Notes* Telephone Encounter - Marjorie Redman [...] 03/22/2023 1:47 PM EDT Pharmacy verified in [facility] Patient has been identified by name [...] (SOMA) 350 mg tablet [facility] [place] documented in this encounterCleveland Clinic Children[facility]06-27-2023 Miscellaneous Notes* Telephone Encounter - Giselle Elizondo [...] in current refill list. documented in this encounterCleveland Clinic [facility] Rehabilitation06-23-2023 Miscellaneous Notes* Telephone Encounter - Giselle Elizondo [...] advise. Marjorie Redman LPN documented in this encounterCleveland Clinic Children'[facility]05-18-2023 Telephone encounter Note * Telephone Encounter - Berenice Slaughter - 01/05/2023 1:17 PM EDT Pt is canceled. Dr Rea is out next week. I am waiting on new date/time until I find availability that works between Dr Rea's surgery [facility] [id number] Miscellaneous Notes* Telephone Encounter - Berenice Slaughter - 01/05/2023 1:17 PM EDT Pt is canceled. Dr Rea is out next week. I am waiting on new date/time until I find availability that works between Dr Rea's surgery * Telephone Encounter - Pascale Gage - 01/05/2023 12:47 PM EDT [facility] pre-registration was calling to see if [...] a TE to Berenice. documented in this encounterSOhio State East [id number] Telephone encounter Note* Telephone Encounter - Pascale Gage - 01/05/2023 12:47 PM EDT [facility] Hospital[facility] pre-registration was calling to see if patient [...] Said to send a TE to Berenice. [facility] [id number] Miscellaneous Notes* Telephone Encounter - Marjorie Redman LPN - 12/30/2022 2:17 PM EDT Received 12/30/2022 from [facility]. Placed in provider's inbox for review. Route to ID for scanning. documented in this encounterCleveland Clinic Children'[facility] Rehabilitation05-10-2023 Miscellaneous Notes* Telephone Encounter - Marjorie Redman LPN - 12/28/2022 10:23 AM EDT Pharmacy verified in [facility] Patient has been identified by name [...] notify patient. Zina Huffman documented in this encounterCleveland Clinic Children'[facility] Rehabilitation05-09-2023 Miscellaneous Notes* Telephone Encounter - Zulma Senior MA - 12/27/2022 10:27 AM EDT Last appointment: 11-28-22 Next appointment: na Pharmacy verified in [facility]. Refill(s) requested: Requested Prescriptions Pending Prescriptions Disp Refills hydroCHLOROthiazide 12.5 mg capsule [Pharmacy Med Name: hydroCHLOROthiazide 12.5 MG Oral Capsule] 90 capsule 3 Sig: TAKE 1 CAPSULE BY MOUTH ONCE DAILY Order(s) pended. Please advise. Zulma Senior MA, INTERMEDIATE ACCOUNTANT documented in this encounterCleveland Clinic Children'[facility] Rehabilitation04-28-2023 Telephone encounter Note * Telephone Encounter - Berenice Slaughter - 12/16/2022 11:37 AM EDT Pt scheduled 01/11/23 at 12:00, 11:00 arrival Pt aware she needs to speak to her ordering physician in regards to her blood thinner. [facility] [id number] Miscellaneous Notes* Telephone Encounter - Berenice Slaughter - 12/16/2022 11:37 AM EDT Pt scheduled 01/11/23 at 12:00, 11:00 arrival Pt aware she needs to speak to her ordering physician in regards to her blood thinner. * Telephone Encounter - Berenice Slaughter - 12/15/2022 2:05 PM EDT Spoke to patient. She was at [facility] and will call me back. documented in this encounterSOhio State East [id number] Telephone encounter Note* Telephone Encounter - Berenice Slaughter - 12/15/2022 2:05 PM EDT Spoke to patient. She was at [facility] and will call me back. [facility] HospitalAzjsti09-16-5529 History of Present illness Narrative* Giselle Elizondo [...] 129/68 Pulse 68 Ht 154.9 cm (5' 1") Wt 80.3 kg (177 lb) SpO2 92% [...] LYMPH % 20 - 30 % 20.7 Sauk% 7.5 Eosin% 0.9 Baso% 0.6 Immature Gran [...] 28, 2022 4:21 PM documented in this encounterCleveland Clinic Children'S [facility] Rehabilitation04-04-2023 Miscellaneous Notes* Telephone Encounter - Marjorie Redman LPN - 11/22/2022 9:06 AM EDT Patient verbalized understanding. * Telephone Encounter - Giselle Elizondo MD - 11/21/2022 4:44 PM EDT Ms rosales The red blood count is a little high as before. Potassium mildly low, otherwise electrolytes/ kidney function OK . Hba1c is in non diabetes range. Lipid profile shows well controlled LDL "bad" cholesterol Increase on potassium rich foods. Giselle Elizondo MD documented in this encounterCleveland Clinic Children'S [facility] Rehabilitation03-29-2023 Procedure note* DALILA Rascon - 11/16/2022 1:00 PM EDT Images from the original note were not included. SPEECH LANGUAGE PATHOLOGY MODIFIED BARIUM SWALLOW STUDY Patient Name: Lesli Rosales : 1940 Today's Date: 11/16/2022 Visit Info / [facility] General Information Radiologist: Radha Type of [...] of hiatalhernia and had her esophagus stretched "a long time ago." Pt has COPD. Behavior/Cognition Behavior/Cognition: Alert, Cooperative, [...] referral. Plan & Recommendations Recommendations/Treatment: Recommendations/Treat Requires TELEPHONE CLERK TELEGRAPH OFFICE Intervention: No D/C Recommendations: No follow up [...] and recommendations of this evaluation. Therapy Time TELEPHONE CLERK TELEGRAPH OFFICE Individual Minutes Time In: 1300 Time Out: 1325 Minutes: 25 DALILA Rascon [facility] HospitalIcsepo05-46-3087 Procedure note* DALILA Rascon - 11/16/2022 1:00 PM EDT Images from the original note were not included. SPEECH LANGUAGE PATHOLOGY MODIFIED BARIUM SWALLOW STUDY Patient Name: Lesli Rosales : 1940 Today's Date: 11/16/2022 Visit Info / [facility] General Information Radiologist: Radha Type of [...] of hiatalhernia and had her esophagus stretched "a long time ago." Pt has COPD. Behavior/Cognition Behavior/Cognition: Alert, Cooperative, [...] referral. Plan & Recommendations Recommendations/Treatment: Recommendations/Treat Requires TELEPHONE CLERK TELEGRAPH OFFICE Intervention: No D/C Recommendations: No follow up [...] and recommendations of this evaluation. Therapy Time TELEPHONE CLERK TELEGRAPH OFFICE Individual Minutes Time In: 1300 Time Out: 1325 Minutes: 25 DALILA Rascon documented in this [facility]03-21-2023 Miscellaneous Notes* Telephone Encounter - Marjorie Redman LPN - 11/08/2022 9:36 AM EDT Patient verbalized understanding. * Telephone Encounter - Giselle Elizondo MD - 11/07/2022 1:57 PM EDT Labs: Lipid: Triglycerides within optimal range. HDL "good" cholesterol is in acceptable range. This can be improved with exercise. Target for HDL cholesterol is >45 mg/dl. In low to moderate risk patients, LDL "bad" cholesterol target is less than 100. Excellent result. Hba1c is in near normal range. Giselle Elizondo MD documented in this encounterCleveland Clinic Children'[facility]03-15-2023 Miscellaneous Notes* Telephone Encounter - Ana Mace APRN.CNP - 11/02/2022 4:12 PM EDT That's fine, she can have the A1C and lipid panel drawn at another time when fasting. Ana Mace APRN.CNP * Telephone Encounter - [...] panel drawn. * Telephone Encounter - Dilma Michele - 11/01/2022 3:35 PM EDT Patient called to get lab results. Please call back at [phone]. * Telephone Encounter - Giselle Elizondo MD - 11/01/2022 9:55 AM EDT Lab results Potassium a little low. Kidney function OK, liver enzymes OK Glucose over 125. CBC stable. Will check with lab to see if Hba1c can be added to rule out diabetes. Telephone on 11/01/22 HGB A1C Giselle Elizondo MD documented in this encounterCleveland Clinic Children'[facility]03-10-2023 Miscellaneous Notes* Telephone Encounter - Christine Lua [...] advise. Kaitlyn Doe Ma documented in this encounterCleveland Clinic Children'S [facility]03-09-2023 History of Present illness Narrative* Miguel Ángel Rea MD - 10/27/2022 3:30 PM EST Images from the original note were not included. [facility] Advanced Laparoscopic Surgery Patient Name: Lesli Rosales Date: 10/28/22 Referring Physician: Loan Madrigal* HPI: Lesli Rosales is a 82 y.o. female who presents with long history of persistent choking on liquids and foods as well as dysphagia with liquids and foods. She states that her symptoms have been ongoing for several years, however recently followed up with her casting cleaner who recommended further evaluation of her symptoms. [...] x2. Former smoker. Notes reviewed: -Otoniel Madrigal SHUTTLE DRIVER, 10/20/2022 Data reviewed: -Esophagram, 10/14/2022, personally interpreted, [...] 1984 TOTAL ABDOMINAL HYSTERECTOMY UPPER GASTROINTESTINAL ENDOSCOPY PFMHx: Family History Adopted: Yes Problem Relation Name Age of Onset Other (04063) Mother ALL: No Known Allergies MEDS: Current [...] 36.2 C (97.1 F) (Temporal) Ht 5' 1" (1.549 m) Wt 180 lb (81.6 kg) BMI 34.01 kg/m She stands Height: 5' 1" (154.9 cm) tall with a weight of [...] Harrington study. Antacids such as Gaviscon, Maalox, Lakeisha-[place], Mylanta, or Tums can be taken up [...] General (Family Medicine) se documented in this [facility]03-09-2023 Miscellaneous Notes* Telephone Encounter - Marjorie Redman [...] mg daily * Telephone Encounter - [facility]anneth [facility] - 10/26/2022 12:13 PM EST Patient is calling back, please call to discuss provider message , she will await your call at phone [phone] which is home phone or cell at [phone] Electronically signed by Jannethclif De Jesus [facility] at 10/26/2022 12:15 PM EST * Telephone [...] requested drug. Please advise. documented in this encounterCleveland Clinic Children'[facility]03-02-2023 History of Present illness Narrative* Loan Madrigal PA-C - 10/20/2022 2:10 PM EST Pulmonary Follow-up [address] [place] [address] Visit type: Established patient Reason for Visit: [...] stated that they are currently in the [facility]. If the patient is a minor, permission [...] arthritis (PET 11/15/12, biopsy 2012 and agian 11/8/17). Lung nodules remain stable for > than [...] fibrillation (CMS/HCC) (HCC) Chronic obstructive pulmonary disease ([facility]) 08/24/2017 GERD (gastroesophageal reflux disease) Hypertension Osteoarthritis [...] Problem Relation Name Age of Onset Other (12172) Mother ROS: Review of Systems Constitutional: Negative [...] day of the visit. documented in this encounterSOhio State East HospitalWvknvb30-12-9438 Telephone encounter Note* Telephone Encounter - Trudy Marie MA - 09/16/2022 11:34 AM EST Called mobile #, Unable to leave [facility] for pt. V/m box hasn't been set up yet. Called home #, pt notified. [facility] [id number] Miscellaneous Notes* Telephone Encounter - Trudy Marie [...] barium swallow and complete PFT study at [phone]. * Telephone Encounter - Claudette Espitia - 08/31/2022 2:22 PM EST Name of caller: Lesli Contact phone number: [phone] Relationship to Patient: patient Provider: Dr. Garcia Practice: [facility] Pulmonary Chief Complaint/Reason for Call: Pt states [...] return their call: No documented in this encounterSOhio State East [id number] Telephone encounter Note* Telephone Encounter - Sonya Hitchcock MA - 08/31/2022 2:50 PM EST Unable to left vm. Pt can call central scheduling to schedule FL esophagus barium swallow and complete PFT study at [phone]. [facility] HospitalDtueuj96-20-7365 Miscellaneous Notes* Telephone Encounter - Sonya Hitchcock MA - 08/31/2022 2:50 PM EST Unable to left vm. Pt can call central scheduling to schedule FL esophagus barium swallow and complete PFT study at [phone]. * Telephone Encounter - Claudette Nupur - 08/31/2022 2:22 PM EST Name of caller: Lesli Contact phone number: [phone] Relationship to Patient: patient Provider: Dr. Garcia Practice: [facility] Pulmonary Chief Complaint/Reason for Call: Pt states [...] return their call: No documented in this [facility]01-11-2023 Telephone encounter Note* Telephone Encounter - Claudette Espitia - 08/31/2022 2:22 PM EST Name of caller: Lesli Contact phone number: [phone] Relationship to Patient: patient Provider: Dr. Garcia Practice: [facility] Pulmonary Chief Complaint/Reason for Call: Pt states [...] business hours to return their call: No [facility] [id number] Miscellaneous Notes* Telephone Encounter - Marty Mcdonald [...] ELIZONDO MD * Telephone Encounter - Zina Huffman - 08/09/2022 12:06 PM EST Patient has been identified by name and date of : Yes Requested Prescriptions Pending Prescriptions Disp Refills carisoprodol (SOMA) 350 mg tablet 5 Sig: Take 1 tablet by mouth twice daily as needed. RX INSTRUCTIONS: Patient aware RX will be sent to pharmacy. No need to notify patient. Zina Huffman documented in this encounterCleveland Clinic Children'[facility]11-22-2022 Miscellaneous Notes* Telephone Encounter - Allyson Maradiaga [...] after symptoms have improved. documented in this encounterCleveland Clinic Children'S [facility] For Rehabilitation11-21-2022 History of Present illness Narrative* Allyson Maradiaga, LAVELLE.RN HEMODIALYSIS - 07/11/2022 3:32 PM EST This note was created using NoteWriter. Subjective Lesli Rosales is a 82 year old female. HPI by patient: Lesli Rosales is a 82 year old presenting to the office with the complaint of viral symptoms. Started this morning with the headache. States "I just need antibiotics to help with this"- points to left maxillary area. History of [...] without sciatica Date Noted: 07/05/2022 Psoriatic arthritis ([facility]) Date Noted: 07/05/2022 Resolved Ambulatory Problems No Resolved Ambulatory Problems Past Medical History: No date: A-fib ([facility] [facility]) No date: Chronic obstructive pulmonary disease (COPD) ([facility]) No date: Hypertension No date: Psoriasis Review of Systems Constitutional: Negative. HENT: Positive for sinus pressure and sinus pain. Eyes: Negative. Respiratory: Positive for cough and shortness of breath. Cardiovascular: Negative. Gastrointestinal: Negative. Endocrine: Negative. Genitourinary: Negative. Musculoskeletal: Negative. Skin: Negative. Neurological: Positive for headaches. Hematological: Negative. Objective BP 155/79 Pulse 66 Temp 36.7 C (98.1 F) Resp 16 Ht 154.9 cm (5' 1") Wt 83 kg (183 lb) SpO2 91% [...] which included preparing to see the patient, ofas-jb-wfwi patient care, completing clinical documentation, obtaining and/or reviewing separately obtained history, performing a medically appropriate examination, counseling and educating the pat ient/family/caregiver, and ordering medications, tests, or procedures. This patient encounter involved the screening or treatment of novel coronavirus infection (COVID-19). documented [facility] Instructions* Patient Instructions* Allyson Maradiaga APRN.CNP - [...] status, or other concerns. documented in this encounterC[facility]11-17-2022 Miscellaneous Notes* Telephone Encounter - Maddie Costa [...] Lesli is going to a facility called [facility] For the program she needsa letter from her PCP with a healthy weight goal. It should be on [facility] Letterhead with Dr. Elizondo's signature. The letter can be mailed to Lesli. documented in this encounterC[facility]11-15-2022 History of Present illness Narrative* Giselle Elizondo [...] low back pain. Patient is managed on [place]. She currently follows pain management and has been for 5 years. Afib Patient has been seeing a marketing technology coordinator. adherent to current regimen without side effects from medication. No current symptoms. Patient notes that she feels that she is unable to breathe at times. She also follows a casting cleaner. She is SOB on exertion. Health Maintenance [...] 126/85 Pulse 61 Ht 154.9 cm (5' 1") Wt 83.5 kg (184 lb) BMI 34.77 [...] Scribe Attestation: By signing my name below, IIleana, attest that this documentation has been prepared under the direction and in the presence of Harpreet Elizondo M.D. Electronically Signed: Carlos Gomes. July 05, 2022 8:08 AM Provider Attestation: Giselle Jeter MD, personally [...] July 05, 2022 1:56PM documented in this encounterC[facility]09-22-2022 Miscellaneous Notes* Telephone Encounter - Ana Mace APRN.CNP - 05/12/2022 11:59 AM EDT I am happy to see her, but I will not be filling any controlled substance medications for her during this appointment. She will need to see Dr. Elizondo for discussion about that medication. Ana Mace APRN.CNP * Telephone Encounter - Chloe Hills - 05/12/2022 11:29 AM EDT Lesli is all scheduled now for next week with Megan. Chloe Hills * Telephone Encounter - Marjorie Redman LPN [...] Elizondo MD * Telephone Encounter - Robyn Michele - 05/10/2022 4:04 PM EDT Lesli Rosales [...] calling: self Call patient at: at home [phone] (home) [phone] (cell) Was an appointment scheduled: No Closing statement: Results or non-symptom based questions: Thank you for calling [facility], your call will be returned within the next business day. Robyn Ortiz Pss documented in this encounterCleveland [facility]03-19-2022 Hospital Discharge instructions Patient Education 11/06/2021 10:32:18 5 - [facility] Post-op Instruction 03/2017 (08085) [facility] Post-operative Instructions PLEASE FOLLOW [facility] POST-OP INSTRUCTIONS GIVEN WATCH FOR SIGNS OF INFECTION: call the office ([phone]) if experencing any of the following: (Usually [...] on your follow up instructions. Form: 338A (75754) R: 12/25 Follow Up Care 11/02/2021 14:03:08 With:VIBHA RAMÍREZ PA-C, Orthopedic, Orthopedic, Orthopedic Address: [facility] [address] [place] [phone]- When:11/19/2021 10:45:00 Comments:This is your [facility] appointment. [facility] Address: [address] [place] [phone]- [phone] When:11/22/2021 10:30:00 Comments:This is your first physical therapy appointment. Follow-up as scheduled. [facility] 03-16-2022 Hospital Discharge instructions Patient Education 11/03/2021 11:06:38 Humerus Fracture Treated With Immobilization, Wmxu-ce-Lffq Humerus Fracture Treated With Immobilization The humerus [...] arm heals enough for you to begin elwqt-to-dyilbh exercises. You may also be prescribed pain [...] doctor says that it is safe. Do ukddp-zm-jluykz exercises only as told by your doctor. General instructions Do not put pressure on any part of the cast or splint until it is fully hardened. This may take many hours. Do not use any products that contain nicotine or tobacco, such as cigarettes, e- cigarettes, and chewing tobacco. These can delay bone healing. If you need help quitting, ask your doctor. Take skbk-gvr-ytlatfj and prescription medicines only as told by your doctor. Ask your doctor if the medicine you are taking can cause trouble pooping (constipation). You may need to take steps to prevent or treat trouble pooping: ?Drink enough fluid to keep your pee (urine) pale yellow. ?Take maso-aiz-qgywruk or prescription medicines. ?Eat foods that are [...] 01/23/2009 Document Revised: 04/08/2019 Document Reviewed: 04/08/2019 [employer] Patient Education 2020 [employer]. Follow Up Care 09/28/2021 13:30:21 With:VIBHA RAMÍREZ PA-C, Orthopedic, Orthopedic, Orthopedic Address: [facility] [address] [place] [phone]- When:11/19/2021 10:45:00 Comments:This is your post-op appointment. Follow-up as scheduled. [facility] Address: [address] [place] [phone]- [phone] When:11/22/2021 10:30:00 Comments:This is your first physical therapy appointment. Follow-up as scheduled. [facility] 03-15-2022 Evaluation + Plan noteExtracted from: Title:History and Physical Author:RUBY MARIE APRN-RN HEMODIALYSIS Date:11/02/21 1. Humerus fracture 2. Adverse effect [...] Diet Order Intake and Output Future Appointments [facility] Discharge summary Author Goldy Warren [facility] Note Date/Time January 01, 2025 1:26p [facility] Medical Records Department [address] [place] [address] Instructions for Home/Discharge Instructions 01/01/25 1318 MR#: [id number] Acct: [id number] Name: LESLI ROSALES Rep #:[id number] : 1940 84 From: Goldy Warren DO PCP: NISA GUTHRIE Status:ADM IN Discharge Instructions Diet Discharge Diet: No restrictions DC O2, CPAP, BIPAP needs Home O2 Discharge instructions: No Dressing / Incision Discharge Activity: - (Do not twist or bend, do not tack picker any object heavier than a gallon of milk) Weight Bearing Status: Full weight bearing Follow Up Care Test Results: Test results from this visit will be discussed in further detail at your follow- up appointment, if applicable. Discharge Plan Admission Admit Date/Time: 12/24/24 19:55 Primary Reason for Your Visit: L2 burst fracture Attending Provider: Goldy Warren Primary Care Provider: NISA GUTHRIE Consulting Providers: Kevin Caballero; Daniel Hall; [...] PRN (Reason: pain) Referrals / Follow Up: NISA GUTHRIE [Other] NISA GUTHRIE [Other] Mike Malagon MD [Med Staff - Active Staff] - See Referral Note (In 2 weeks, call for an appointment) Disposition Disposition (needs filled in before D/C Order can be placed): Home, Self Care 01/01/25 1326<Electronically signed by Goldy Warren DO>Goldy Warren DO CC: Dr. Daniel Hall MD; Dr. Mike Malagon MD; Dr. Kevin Caballero DO; Dr. Sveta Macias DO; NISA GUTHRIE ~ Signed [facility] Work Phone: Evaluation + Plan note Future Appointments [facility] Evaluation noteNo assessment information available [facility] Work Phone: Evaluation note* Diagnosis Presence of right artificial shoulder joint Shoulder joint replacement by other means [facility]* Diagnosis Dizziness and giddiness [facility]* Diagnosis Chronic atrial fibrillation (HCC)- Primary Atrial fibrillation Chronic obstructive pulmonary disease, unspecified COPD type (HCC) Essential hypertension Unspecified essential hypertension Cervical spondylosis Cervical spondylosis without myelopathy History of right shoulder replacement Chronic midline low back pain without sciatica Psoriasis, unspecified Psoriatic arthritis (HCC) Psoriatic arthropathy [facility] this encounter [facility] Diagnosis Viral URI with cough- Primary Acute upper respiratory infections of unspecified site [facility] encounter [facility]* Diagnosis Chronic midline low back pain without sciatica- Primary documented in this encounter [facility] note* Diagnosis Cervical spondylosis- Primary Cervical spondylosis without myelopathy Chronic atrial fibrillation (HCC) Atrial fibrillation Essential hypertension Unspecified essential hypertension Screening for lipid disorders [facility]* Diagnosis Chronic midline low back pain without sciatica documented in this encounter [facility] note* Diagnosis Hyperglycemia- Primary Other abnormal glucose [facility]* Diagnosis Dysphagia, unspecified type Choking, sequela documented in this encounter [facility] note* Diagnosis Status post shoulder replacement, right- Primary Osteoporosis of shoulder region Hypokalemia Hypopotassemia Essential hypertension Unspecified essential hypertension Chronic atrial fibrillation (HCC) Atrial fibrillation Chronic obstructive pulmonary disease, unspecified COPD type (HCC) Psoriatic arthritis (HCC) Psoriatic arthropathy documented in this encounter [facility] note* Diagnosis Essential hypertension Unspecified essential hypertension documented in this encounter [facility] note* Diagnosis Chronic midline low back pain without sciatica documented in this encounter [facility] note* Diagnosis Chronic midline low back pain without sciatica documented in this encounter [facility] note* Diagnosis Chronic obstructive pulmonary disease, unspecified COPD type (HCC)- Primary Dysphagia, unspecified type Lung nodule Other diseases of lung, not elsewhere classified Pulmonary fibrosis (HCC) Postinflammatory pulmonary fibrosis documented in this encounter [facility] note* Diagnosis BRBPR (bright red blood per rectum)- Primary Hemorrhage of rectum and anus Chronic constipation Unspecified constipation Abnormal weight loss Loss of weight Abdominal distension (gaseous) Flatulence, eructation, and gas pain Other constipation Nausea Nausea alone documented in this encounter [facility] note* Diagnosis Chronic obstructive pulmonary disease, unspecified COPD type (HCC)- Primary documented in this encounter [facility] note* Diagnosis Abnormal CT scan, colon- Primary Nonspecific (abnormal) findings on radiological and other examination of gastrointestinal tract Chronic constipation Unspecified constipation documented in this encounter [facility] note* Diagnosis Chronic obstructive pulmonary disease, unspecified COPD type (HCC) documented in this encounter [facility] note* Diagnosis Chronic obstructive pulmonary disease, unspecified COPD type (HCC) [facility]* Diagnosis Moderate COPD (chronic obstructive pulmonary disease) (HCC)- Primary Chronic airway obstruction, not elsewhere classified Restrictive lung disease Other diseases of lung, not elsewhere classified Lung nodules Other nonspecific abnormal finding of lung field Former cigarette smoker Personal history of tobacco use, presenting hazards to health [facility]* Diagnosis Chronic midline low back pain without sciatica [facility]* Diagnosis Pancreatic cyst Cyst and pseudocyst of pancreas [facility]* Diagnosis Chronic obstructive pulmonary disease, unspecified COPD type (HCC) Pulmonary fibrosis (HCC) Postinflammatory pulmonary fibrosis Lung nodule Other diseases of lung, not elsewhere classified documented in this encounter [facility] note* Diagnosis Itching- Primary Unspecified pruritic disorder Upper back pain Abnormal weight loss Loss of weight HTN (hypertension), benign Essential hypertension, benign Paroxysmal atrial fibrillation (HCC) Atrial fibrillation Hyperglycemia Other abnormal glucose Chronic constipation Unspecified constipation documented in this encounter [facility] note* Diagnosis Chronic obstructive pulmonary disease, unspecified COPD type (HCC) documented in this encounter [facility] note* Diagnosis Essential hypertension Unspecified essential hypertension [facility]* Diagnosis Chronic midline low back pain without sciatica documented in this encounter [facility] note* Diagnosis URI, acute- Primary Acute upper respiratory infections of unspecified site documented in this encounter [facility] note* Diagnosis Chronic obstructive pulmonary disease, unspecified COPD type (HCC)- Primary Restrictive lung disease Other diseases of lung, not elsewhere classified History of pulmonary fibrosis Personal history of other diseases of respiratory system Pulmonary nodules Other nonspecific abnormal finding of lung field Former cigarette smoker Personal history of tobacco use, presenting hazards to health [facility]* Diagnosis Medication management Encounter for long-term (current) use of other medications [facility] encounter [facility]* Diagnosis Hypokalemia- Primary Hypopotassemia [facility]* Diagnosis Medicare annual wellness visit, subsequent- Primary Routine general medical examination at a health care facility Idiopathic pulmonary fibrosis (HCC) Idiopathic pulmonary fibrosis Psoriatic arthritis (HCC) Psoriatic arthropathy Obesity, Class I, BMI 30-34.9 Obesity, unspecified 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 Abnormality of gait Falling episodes Lack of coordination Skin irritation Unspecified disorder of skin and subcutaneous tissue [facility]* Diagnosis Lung nodules- Primary Other nonspecific abnormal finding of lung field Ground glass opacity present on imaging of lung [facility]* Diagnosis Chronic midline low back pain without sciatica documented [facility] encounter [facility]* Diagnosis Moderate COPD (chronic obstructive pulmonary disease) (HCC)- Primary Chronic airway obstruction, not elsewhere classified Ground glass opacity present on imaging of lung Former smoker Personal history of tobacco use, presenting hazards to health [facility]* Diagnosis Closed fracture of multiple ribs of left side, sequela- Primary Chronic left-sided thoracic back pain documented in this encounter [facility] note* Diagnosis Closed fracture of multiple ribs of left side, sequela Chronic left-sided thoracic back pain documented in this encounter [facility] note* Diagnosis Chronic midline low back pain without sciatica documented in this encounter [facility] note* Diagnosis Closed fracture of multiple ribs of left side with routine healing, subsequent encounter- Primary documented in this encounter [facility] note* Diagnosis Chronic left-sided thoracic back pain- Primary documented in this encounter [facility] note* Diagnosis Essential hypertension Unspecified essential hypertension documented in this encounter [facility] note* Diagnosis Epigastric pain- Primary Abdominal pain, epigastric Pancreatic cyst Cyst and pseudocyst of pancreas documented in this encounter [facility] note* Diagnosis Pancreatic cyst- Primary Cyst and pseudocyst of pancreas documented in this encounter [facility] note* Diagnosis Epigastric pain Abdominal pain, epigastric documented in this encounter [facility] note* Diagnosis Chronic obstructive pulmonary disease, unspecified COPD type (HCC) documented in this encounter [facility] note* Diagnosis Dysphagia, unspecified type documented in this encounter [facility] note* Diagnosis Choking, sequela- Primary Dysphagia, unspecified type Dysphagia, unspecified type Choking, sequela documented in this encounter [facility] note* Diagnosis Chronic obstructive pulmonary disease, unspecified COPD type (HCC)- Primary Dysphagia, unspecified type Lung nodule Other diseases of lung, not elsewhere classified Pulmonary fibrosis (HCC) Postinflammatory pulmonary fibrosis documented in this encounter [facility] note* Diagnosis Lung nodules- Primary Other nonspecific abnormal finding of lung field Moderate COPD (chronic obstructive pulmonary disease) (HCC) Chronic airway obstruction, not elsewhere classified Former smoker Personal history of tobacco use, presenting hazards to health documented in this encounter [facility] note* Diagnosis Lung nodules Other nonspecific abnormal finding of lung field Ground glass opacity present on imaging of lung documented in this encounter [facility] note* Diagnosis Onset Date Resolution Status Admit Date Septic shock acute November 17, 2024 4:40pm [facility] Work Phone: Evaluation note* Diagnosis Mixed [...] sciatica States being told she has a "compound spinal fracture" 2023 Tylenol lidocaine patch Therapy * Assessment [...] albuterol Monitor sats [facility] Diagnosis Mixed simple and mucopurulent chronic [...] bleeding/bruising * Assessment & Plan Note - SkipKeerthi jacob - 12/03/2024 9:51 PM EDTAssociated Problem(s): Chronic midline low back pain without sciatica Complains of severe mid back pain History of "compound spinal fracture" 2023 Tylenol lidocaine patch Tramadol Therapy * [...] Weakness Continue therapy [facility]* Diagnosis Chronic atrial fibrillation (HCC)- Primary [...] Continue current medications [facility]* Diagnosis Chronic atrial fibrillation (HCC)- Primary [...] Weakness PT OT [facility]* Diagnosis Asymptomatic menopausal state- Primary [facility]* Diagnosis Cardiac murmur, unspecified- Primary [facility]* Diagnosis Age-related osteoporosis without current pathological fracture- Primary Postmenopausal Asymptomatic postmenopausal status (age-related) (natural) History of fragility fracture Fracture Risk Assessment Score (FRAX) indicating greater than 20% risk for major osteoporosis-related fracture Fracture Risk Assessment Score (FRAX) indicating greater than 3% risk for hip fracture [facility]* Diagnosis Age-related osteoporosis without current pathological fracture- Primary Postmenopausal Asymptomatic postmenopausal status (age-related) (natural) History of fragility fracture Fracture Risk Assessment Score (FRAX) indicating greater than 20% risk for major osteoporosis-related fracture Fracture Risk Assessment Score (FRAX) indicating greater than 3% risk for hip fracture [facility]* Diagnosis Chronic atrial fibrillation (HCC)- Primary [...] mucopurulent chronic bronchitis (HCC) Other chronic bronchitis Essential hypertension Unspecified essential hypertension documented in this encounter [facility] note* Diagnosis Asymptomatic menopausal state [facility] Diagnosis Chronic atrial fibrillation (HCC)- Primary [...] mucopurulent chronic bronchitis (HCC) Other chronic bronchitis Monoclonal gammopathy- Primary Monoclonal paraproteinemia documented [facility] encounter [facility]* Diagnosis Age-related osteoporosis without current pathological fracture- Primary History of fragility fracture Fracture Risk Assessment Score (FRAX) indicating greater than 20% risk for major osteoporosis-related fracture Fracture Risk Assessment Score (FRAX) indicating greater than 3% risk for hip fracture Postmenopausal Asymptomatic postmenopausal status (age-related) (natural) documented [facility]* Diagnosis Acute subdural hematoma (HCC)- Primary Acute subdural hematoma (HCC) Fall, initial encounter Closed fracture of multiple ribs of left side with routine healing Hematoma Contusion of unspecified site Chronic systolic (congestive) heart failure (HCC) Paroxysmal atrial fibrillation (HCC) Atrial fibrillation Fall Unspecified fall Closed fracture of multiple ribs of left side with routine healing Closed fracture of left wrist Hematoma Contusion of unspecified site Chronic systolic (congestive) heart failure (HCC) Paroxysmal atrial fibrillation (HCC) Atrial fibrillation [facility] Author Elsy Perdomo [facility] Note Date/Time November 17, 2024 5:0 4pm [facility] Medical Records Department [address] [place] [address] H&P Exam - Hospitalist 11/17/24 1640 MR#: [id number] Acct: [id number] Name: CONNIELESLI Jose Alberto Rep #:[id number] : 1940 84 From: Elsy Perdomo MD PCP: NISA GUTHRIE Status:ADM IN Location: ICU ICU04-1 HPI - General General Date of Admission: 11/17/24 Date of Service: 11/17/24 Chief Complaint: Poor PO, nausea HPI Narrative LESLI ROSALES, is a an 84-year-old female with history of A-fib, psoriatic arthritis, COPD who presented [facility] ED 11/17/2024 with righthip pain with [...] abnormal for her, had not occurred prior. [facility] Medical History (Updated 11/17/24 @ 16:45 by [...] 85.3 H, Lymph % (Auto) 6.2 L, [place] % (Auto) 7.5, Eos % (Auto) 0.0, [...] Sens 482 H*, [place] [address] H, Total Protein 7.3, Albumin 3.7, Globulin 3.6, Albumin/Globulin Ratio 1.0 11/17/24 13:37: Urine Color Yellow, Urine Clarity Sl. Cloudy, Urine pH 6.0, Ur Specific [place] 1.020, Urine Protein 30 H, Urine Glucose [...] inability to confirm benign pathology. Reading Location: [facility] Hip/Pelvis X-Ray 11/17/24 15:21 IMPRESSION: DEGENERATIVE OSTEOARTHROSIS. NO ACUTE FINDINGS. Reading Location: [facility] Assessment & Plan Assessment/Plan (1) Septic [...] documentation, 78Minutes Charges/Coding Visit Charges Inpatient E&M: 22058 Init Hosp L3 11/17/24 1706 <Electronically signed by Elsy Perdomo MD> Cosigner Signature (if applicable): CC: Dr. Elsy Perdomo MD; NISA GUTHRIE~ Signed [facility] Work Phone: Hospital course Narrative No data available for this section [facility] Hospital Discharge instructions No data available for this section [facility] Hospital Discharge instructionsAdditional Instructions 1. You will need to follow up with Dr. Hall next week for prescriptions for pain medication. 2. You are going to follow up in the wound care center with Dr. Plasencia for the wound on the R knee 3. I recommend that you follow up with Dr. Kendell Liang, semiautomatic stitcher operator, for treatment of your severe osteoporosis. Even on Vitamin D 50 mcg daily your Vitamin D level was low. We have increased the vitamin D to twice a day. Vitamin D is necessary to be able to absorb calcium from the gastrointestinal tract. Vitamin D comes from the sun........which we don't see for a good portion of the year in [place]. 4. You have chronic lung disease. Your oxygen drops with exertion and also when sleeping. You should be wearing oxygen anytime you are exerting yourself (like with walking) and anytime you are napping/sleeping. You do not have to wear the oxygen if you are just sitting in a chair. 5. You have a history of congestive heart failure. You also have varicose veins in your legs and this causes a condition called chronic venous insufficiency. Both congestive heart failure and venous insufficiency caused swelling in your legs. The things that you can do to help decrease the swelling in your legs are consumed a low salt diet and elevate your legs when you are seated in a chair. Sitting with your legs down increases the swelling in your legs. You can also wear compression stockings and these should be applied the first thing in the morning when you get out of bed and not removed until you get into bed at night. You will also be taking a water pill to help get rid of excess fluid. I have given you some literature to read about how to treat venous insufficiency. Eating too much slat makes your body retain fluid. We did ultra sounds of the veins in the legs to make sure you do not have blood clots contributing to the swelling and there are no blood clots in your legs. You have not been on Xarelto while on rehab because you had bleeding in your head from the fall. You should not restart this medication until the neurosurgeon tells you that it is OK........they will likely want to do a repeat CT scan of the head/brain before restarting anticoagulation. Sometimes when a patient falls regularly and they have had bleeding in the brain/head the anticoagulation does not get restarted because the risk for bleeding is too great. 6. You have some mild chronic kidney disease. Because of this we discontinued Famotidine because it can build up in people with kidney disease. We have substituted a drug called Protonix (also called pantoprazole) to treat your heartburn/reflux. We are giving you this medication twice a day and since we increased it to twice a day you are no longer having heartburn or nausea. 7. I am giving you a prescription for #1 Butrans patch and #21 Percocet. This will get you through next week so you can follow up with Dr. Hall the next week........you are going to be busy with other appts next week. 8. If you have any questions after you leave rehab or you are out of a medication I did not give you a prescription for please do not hesitate to call me. OFFICE: [phone] CELL: [phone] NURSES STATION ON REHAB: [phone] Date of Discharge: 05/16/25[facility] Work Phone: Progress note [facility] [address] [place] [address] Progress Note - Wound Care 05/21/25 0753 MR#: [id number] Acct: [id number] Name: LESLI ROSALES Rep #:[id number] : 1940 85 From: Jack Plasencia MD PCP: Dr. Marty Guthrie MD Status:DIS R CR Location: History of Present Illness Date of Service: 05/19/25 Chief Complaint: HPI Narrative: LESLI ROSALES, is a 85 F with PMH significant for osteoporosis, atrial fibrillation on Xarelto,CHF, COPD, chronic pain syndrome who had a dizzy episode at home and fell forward with outstretchedhand and hit the side of her head on the coffee table on 04/22/25. Work up demonstrated 6mm SDH, she was reversed with Kcentra and Xarelto held. She was also noted to have multiple rib fractures, new vs chronic spine fractures. She was also noted to have right kneeswelling, bruising and eschar. She complains mostly of left shoulder pain which was negative for acute bony injuries. Right knee xray was negative for bony injuries as well. Left hand xray showed possible nondisplaced fracture however or thopedics at the outside facility assessed and did not think she had one plus she does not endorse any left hand/wrist pain. Since her arrival to our rehab facility she has been ambulating with walker without major significant pain withwalking on it. She denies fever, chills, drainage, numbness, tingling. She does not have history or right knee surgeries. Subjective Subjective Current encounter, 21 May 2025: Patient underwent I&D in the rehab facility and subsequent wound care. Presentstoday for follow-up of the right knee hematoma I&D. She has been doing well with no fevers chills or drainage and endorses good dressing changes Objective Data Objective Data Vital Signs: Vital Signs Temp Pulse Resp BP 98.0 F 89 16 149/93 H 05/19/25 14:19 05/19/25 14:19 05/19/25 14:19 05/19/25 14:19 Charges/Coding Procedures Integumentary 111xxx-113xx: 85196 Velma subq tissue 20 sq cm/< Physical Exam Narrative Right knee examined No surrounding induration or fluid collections Hematoma has been evacuated with dressing changes There is beefy red granulation tissue at the base and the wound measures 2 x 1 cm and is 0.2 cm deep Motor: She is able to walk bend and extend her knee without any issues Debridement Note Debridement Note Wound debrided: Right anterior knee wound Laterality: Right Wound Grade/Stage: Stage III, superficial just through the skin Type of Debridement: Excisional debridement Anesthesia Used: 4% Lidocaine Solution Depth: Down to and including healthy tissue Percentage of wound debrided: 100 Instrument Used: 5mm curette Tissue Removed: Fibrinous exudate and necrotic biofilm Severity: Fat Layer Exposed Amount of bleeding with debridement: Mild Bleeding Controlled with: Pressure Patient tolerated procedure: Patient tolerated procedure well Assessment/Plan Assessment/Plan (1) Ulcer of right leg: CODE(S): L97.919 - Non-pressure chronic ulcer of unspecified part of rightlower leg with unspecified severity PLAN: Continue twice daily dressing changes with wet-to-dry dressings Should heal in well over the next couple weeks Follow-up with me next month 05/21/25 0756 Cosigner Signature (if applicable): CC: ~ [facility] Note Date/Time May 21, 2025 7: 56am [facility] [address] [place] [address] Progress Note - Wound Care 05/21/25 0753 MR#: [id number] Acct: [id number] Name: LESLI ROSALES Rep #:[id number] : 1940 85 From: Jack Plasencia MD PCP: Dr. Marty Guthrie MD Status:DIS R CR Location: History of Present Illness Date of Service: 05/19/25 Chief Complaint: HPI Narrative: LESLI ROSALES, is a 85 F with PMH significant for osteoporosis, atrial fibrillation on Xarelto, CHF, COPD, chronic pain syndrome who had a dizzy episode at home and fell forward with outstretched hand and hit the side of her head on the coffee table on 04/22/25. Work up demonstrated 6mm SDH, she was reversed with Kcentra and Xarelto held. She was also noted to have multiple rib fractures, new vs chronic spine fractures. She was also noted to have right kneeswelling, bruising and eschar. She complains mostly of left shoulder pain which was negative for acute bony injuries. Right knee xray was negative for bony injuries as well. Left hand xray showed possible nondisplaced fracture however orthopedics at the outside facility assessed and did not think she had one plus she does not endorse any left hand/wrist pain. Since her arrival to our rehab facility she has been ambulating with walker without major significant pain withwalking on it. She denies fever, chills, drainage, numbness, tingling. She does not have history or right knee surgeries. Subjective Subjective Current encounter, 21 May 2025: Patient underwent I&D in the rehab facility and subsequent wound care. Presentstoday for follow-up of the right knee hematoma I&D. She has been doing well with no fevers chills or drainage and endorses good dressing changes Objective Data Objective Data Vital Signs: Vital Signs Temp Pulse Resp BP 98.0 F 89 16 149/93 H 05/19/25 14:19 05/19/25 14:19 05/19/25 14:19 05/19/25 14:19 Charges/Coding Procedures Integumentary 111xxx-113xx: [id number] Velma subq tissue 20 sq cm/< Physical Exam Narrative Right knee examined No surrounding induration or fluid collections Hematoma has been evacuated with dressing changes There is beefy red granulation tissue at the base and the wound measures 2 x 1 cm and is 0.2 cm deep Motor: She is able to walk bend and extend her knee without any issues Debridement Note Debridement Note Wound debrided: Right anterior knee wound Laterality: Right Wound Grade/Stage: Stage III, superficial just through the skin Type of Debridement: Excisional debridement Anesthesia Used: 4% Lidocaine Solution Depth: Down to and including healthy tissue Percentage of wound debrided: 100 Instrument Used: 5mm curette Tissue Removed: Fibrinous exudate and necrotic biofilm Severity: Fat Layer Exposed Amount of bleeding with debridement: Mild Bleeding Controlled with: Pressure Patient tolerated procedure: Patient tolerated procedure well Assessment/Plan Assessment/Plan (1) Ulcer of right leg: CODE(S): L97.919 - Non-pressure chronic ulcer of unspecified part of rightlower leg with unspecified severity PLAN: Continue twice daily dressing changes with wet-to-dry dressings Should heal in well over the next couple weeks Follow-up with me next month 05/21/25 0756 <Electronically signed by Jack Plasencia MD> Cosigner Signature (if applicable): CC: ~ Signed [facility] Work Phone: Reason for referral (narrative)* Diagnostic Procedure Only (Routine) - Closed Specialty Diagnoses / Procedures Referred By Raudel t Referred To Contact XR IMAGING Diagnoses Closed fracture of multiple ribs of left side, sequela Chronic left-sided thoracic back pain Procedures XR RIBS 2V AP/OBL LEFT RADEX RIBS UNILATERAL 2 VIEWS Giselle Elizondo MD [address] [place] [address] [place] [address] [place] [address] Referral ID Status Reason Start Date Expiration Date V isits Requested Visits Authorized [id number] Closed Auto-Generate d Referral 05/29/2024 06/28/2025 1 1 * Diagnostic Procedure Only (Routine) - Closed Specialty Diagnoses / Procedures Referred By Contac t Referred To Contact XR IMAGING Diagnoses Closed fracture of multiple ribs of left side, sequela Chronic left-sided thoracic back pain Procedures XR THORACIC GENERAL 3V AP/LAT/SWIMMERS RADEX SPINE THORACIC 3 VIEWS Giselle Elizondo MD [address] [place] [address] [place] [address] Referral ID Status Reason Start Date Expiration Date V isits Requested Visits Authorized [id number] Closed Auto-Generate d Referral 05/29/2024 06/28/2025 1 1 [facility] (narrative)* Diagnostic Procedure Only (Urgent) - Authorized Specialty Diagnoses / Procedures Referred By Contac t Referred To Contact US IMAGING Diagnoses Epigastric pain Procedures US ABD RIGHT UPPER QUADRANT US ABDOMINAL REAL TIME W/IMAGE LIMITED Ana Meza APRN.RN HEMODIALYSIS [address] [place] [address] [place] [address] Referral ID Status Reason Start Date Expiration Date Visits Requested Visits Authorized [id number] Authorized Auto-Generat ed Referral 08/09/2025 1 1 * MRI/CT (Routine) - Authorized Specialty Diagnoses / Procedures Referred By Contac t Referred To Contact MR IMAGING Diagnoses Pancreatic cyst Procedures MRI 3D POST PROCESSING 3D RENDERING W/INTERP&POSTPROC DIFF WORK STATION Ana Meza SHUTTLE DRIVER.RN HEMODIALYSIS [address] [place] [address] [place] [address] Referral ID Status Reason Start Date Expiration Date Visits Requested Visits Authorized [id number] Authorized Auto-Generat ed Referral 4 08/20/2024 1 1 * MRI/CT (Routine) - Authorized Specialty Diagnoses / Procedures Referred By Contac t Referred To Contact MR IMAGING Diagnoses Pancreatic cyst Procedures MRI PANC/MARCK WO/W IVCON MRI ABDOMEN W/O & W/CONTRAST MATERIAL Ana Meza APRN.RN HEMODIALYSIS [address] [place] [address] [place] [address] Referral ID Status Reason Start Date Expiration Date Visits Requested Visits Authorized [id number] Authorized Auto-Generat ed Referral 4 08/09/2025 1 1 [facility] (narrative)* Diagnostic Procedure Only (Urgent) - Closed Specialty Diagnoses / Procedures Referred By Contac t Referred To Contact US IMAGING Diagnoses Epigastric pain Procedures US ABD RIGHT UPPER QUADRANT US ABDOMINAL REAL TIME W/IMAGE LIMITED Ana Meza APRN.RN HEMODIALYSIS [address] [place] [address] [place] [address] Referral ID Status Reason Start Date Expiration Date V isits Requested Visits Authorized [id number] Closed Auto-Generate d Referral 07/10/2024 08/09/2025 1 1 [facility] (n[facility]ative)No reason for referral information [facility] Work Phone: Reason for visit Narrative* Diagnostic Procedure Only (Routine) - Closed Specialty Diagnoses / Procedures Referred By Contac t Referred To Contact XR IMAGING Diagnoses Closed fracture of multiple ribs of left side, sequela Chronic left-sided thoracic back pain Procedures XR RIBS 2V AP/OBL LEFT RADEX RIBS UNILATERAL 2 VIEWS Giselle Elizondo MD [address] [place] [address] [place] [address] Referral ID Status Reason Start Date Expiration Date V isits Requested Visits Authorized [id number] Closed Auto-Generate d Referral 05/29/2024 06/28/2025 1 1 [facility] Narrative* Auth/Cert (Routine) Specialty Diagnoses / Procedures Referred By Raudel t Referred To Contact Diagnoses Acute subdural hematoma (HCC) Fall with head injury Procedures .. Domonique Gonzalez MD [address] [place] [address] Phone: tel: fax: [facility] Surgical Trauma Neuro Intensive Care Unit [address] ICU T[address] [place] [address] Phone: tel: Referral ID Status Reason Start Date Expiration Date Visits Re quested Visits Authorized [id number] 1 1 [facility] Health Summary Purpose Family History No Family History Records FoundNo Family History Records FoundNo Family History Records FoundNo Family History Records FoundNo Family History Records FoundNo Family History Records FoundNo Family History Records FoundNo Family History Records FoundNo Family History Records FoundNo Family History Records Found Advance Directives No Advanced Directives Records FoundDocuments on File Type Date Recorded Patient Spot Remover Expl anation Advance Directives and Living Will Power of Carpet Or Rug Layer Helper Documents on File Type Date Recorded Patient Spot Remover Expl anation ACP-Advance Directive ACP-Power of Carpet Or Rug Layer Helper Documents on File Type Date Recorded Patient Spot Remover Expl anation ACP-Advance Directive ACP-Power of Carpet Or Rug Layer Helper Advance Directive Response Recorded Date/ Time Living Will Yes June 26 3:33pm Power of Carpet Or Rug Layer Helper Yes June 26, 2021 3:33pm Advance Directive Response Recorded Date/ Time Living Will Yes November 17, 2024 12:52pm Do you have a Healthcare Power of Carpet Or Rug Layer Helper? Yes November 17, 2024 12:52pm Name of Medical Power of Carpet Or Rug Layer Helper ? November 17, 2024 12:52pm Advance Directive Response Recorded Date/ Time Living Will Yes November 17, 2024 5:40pm Do you have a Healthcare Power of Carpet Or Rug Layer Helper? Yes November 17, 2024 5:40pm Name of Medical Power of Carpet Or Rug Layer Helper ? November 17, 2024 5:40pm Advance Directive Response Recorded Date/ Time Living Will Yes November 17, 2024 5:40pm Do you have a Healthcare Power of Carpet Or Rug Layer Helper? Yes November 17, 2024 5:40pm Name of Medical Power of Carpet Or Rug Layer Helper ? November 17, 2024 5:40pm Do you have a Healthcare Power of Carpet Or Rug Layer Helper? Yes December 24, 2024 3:29pm Advance Directive Response Recorded Date/ Time Living Will Yes November 17, 2024 5:40pm Do you have a Healthcare Power of Carpet Or Rug Layer Helper? Yes November 17, 2024 5:40pm Name of Medical Power of Carpet Or Rug Layer Helper ? November 17, 2024 5:40pm Do you have a Healthcare Power of Carpet Or Rug Layer Helper? Yes December 24, 2024 9:20pm Name of Medical Power of Carpet Or Rug Layer Helper franco hernandez ms December 24, 2024 9:20pm Advance Directive Response Recorded Date/ Time Living Will Yes November 17, 2024 5:40pm Do you have a Healthcare Power of Carpet Or Rug Layer Helper? Yes November 17, 2024 5:40pm Name of Medical Power of Carpet Or Rug Layer Helper ? November 17, 2024 5:40pm Do you have a Healthcare Power of Carpet Or Rug Layer Helper? No February 11, 2025 10:40pm Do you have a Healthcare Power of Carpet Or Rug Layer Helper? Yes December 24, 2024 9:20pm Name of Medical Power of Carpet Or Rug Layer Helper franco hernandez ms December 24, 2024 9:20pm Advance Directive Response Recorded Date/ Time Do you have a Healthcare Pow er of Carpet Or Rug Layer Helper? No February 11, 2025 10:40pm Do you have a Healthcare Pow er of Carpet Or Rug Layer Helper? Yes April 22, 2025 7:18pm Do you have a Healthcare Pow er of Carpet Or Rug Layer Helper? Yes December 24, 2024 9:20pm Name of Medical Power of Carpet Or Rug Layer Helper franco hernandez ms December 24, 2024 9:20pm Date Activated Date Inactivated Comments 04/23/2025 2:02 AM Date Activated Date Inactivated Comments 04/23/2025 2:02 AM 04/29/2025 7:06 PM Date Activated Date Inactivated Comments 04/23/2025 2:02 AM 04/29/2025 7:06 PM Advance Directive Response Recorded Date/ Time Do you have a Healthcare Power of Carpet Or Rug Layer Helper? No February 11, 2025 10:40pm Do you have a Healthcare Power of Carpet Or Rug Layer Helper? Yes April 22, 2025 7:18pm Do you have a Healthcare Power of Carpet Or Rug Layer Helper? Yes April 30, 2025 3:19pm Name of Medical Power of Carpet Or Rug Layer Helper Anna Rosales, daughter April 30, 2025 3:19pm Reason for Referral Status Reason Specialty Diagnoses / Procedures Referred By Contact Referred To Contact Open Specialty Services Required Otolaryngology Diagnoses Epistaxis, recurrent Luke Ireland MD [address] [place] [address] [facility] [address] [place] [address] Scheduling Instructions [facility] [address], [address] [place] [address] F: [phone] Specialty Diagnoses / Procedures Referred By Contac t Referred To Contact Radiology Diagnoses Pulmonary fibrosis (HCC) Procedures CT chest wo IV contrast Loan Madrigal PA-C [address] [place] [address] Referral ID Status Reason Start Date Expiration Date V isits Requested Visits Authorized [id number] Authorized 05/17/2023 11/13/2023 1 1 Specialty Diagnoses / Procedures Referred By Contac t Referred To Contact CT IMAGING Diagnoses BRBPR (bright red blood per rectum) Chronic constipation Abnormal weight loss Abdominal distension (gaseous) Other constipation Nausea Procedures CT ABD/PEL W IVCON CT ABD & PELVIS W/CONTRAST Fernanda Horne PA-C [address] [place] [address] [address] [facility] [place] [address] Referral ID Status Reason Start Date Expiration Date Visits Requested Visits Authorized [id number] Authorized Auto-Generat ed Referral 05/22/2023 06/20/2024 1 1 Specialty Diagnoses / Procedures Referred By Contac t Referred To Contact Pulmonary and Critical Care Medicine Diagnoses Chronic obstructive pulmonary disease, unspecified COPD type (HCC) Procedures CONSULT TO PULM/CRITICAL CARE OFFICE/OUTPATIENT [facility] 60-74 MINUTES Ruby Prater, SHUTTLE DRIVER.RN HEMODIALYSIS [address] [place] [address] Referral ID Status Reason Start Date Expiration Date Visits Requested Visits Authorized [id number] Pending Review PCP Requested Referral 05/23/2023 05/22/2024 1 1 Specialty Diagnoses / Procedures Referred By Contac t Referred To Contact CT IMAGING Diagnoses Interstitial pulmonary disease (HCC) Procedures CT CHEST WO IVCON DIAGNOSTIC COMPUTED TOMOGRAPHY THORAX W/O Keely Amador MD [address] [facility] [address] [address] [facility] [place] [address] Referral ID Status Reason Start Date Expiration Date Visits Requested Visits Authorized [id number] Authorized Auto-Generat ed Referral 12/28/2023 01/26/2025 1 1 Specialty Diagnoses / Procedures Referred By Contac t Referred To Contact CT IMAGING Diagnoses Lung nodules Ground glass opacity present on imaging of lung Procedures CT CHEST WO IVCON DIAGNOSTIC COMPUTED TOMOGRAPHY THORAX W/O Keely Amador MD [address] [place] [address] [address] [facility] [place] [address] Referral ID Status Reason Start Date Expiration Date Visits Requested Visits Authorized [id number] Pending Review Auto-Generat ed Referral 4 02/28/2025 1 1 Specialty Diagnoses / Procedures Referred By Contac t Referred To Contact MR IMAGING Diagnoses Pancreatic cyst Procedures MRI 3D POST PROCESSING 3D RENDERING W/INTERP&POSTPROC DIFF WORK STATION Ana Meza, SHUTTLE DRIVER.RN HEMODIALYSIS [address] [place] [address] Mr Imaging [facility] Referral ID Status Reason Start Date Expiration Date Visits Requested Visits Authorized [id number] New Request Auto-Generat ed Referral 4 08/09/2025 1 1 Specialty Diagnoses / Procedures Referred By Contac t Referred To Contact MR IMAGING Diagnoses Pancreatic cyst Procedures MRI PANC/MARCK WO/W IVCON MRI ABDOMEN W/O & W/CONTRAST MATERIAL Ana Meza, LAVELLE.RN HEMODIALYSIS [address] [place] [address] [place] [address] Referral ID Status Reason Start Date Expiration Date Visits Requested Visits Authorized [id number] New Request Auto-Generat ed Referral 08/09/2025 1 1 Specialty Diagnoses / Procedures Referred By Contac t Referred To Contact Pulmonology Diagnoses Chronic obstructive pulmonary disease, unspecified COPD type (HCC) Procedures Complete PFT study Loan Madrigal PA-C [address] [address] [address]m F[address] [place] [address] Referral ID Status Reason Start Date Expiration Date Visits Re quested Visits Authorized [id number] Closed 08/05/2022 02/01/2023 1 1 Specialty Diagnoses / Procedures Referred By Contac t Referred To Contact Radiology Diagnoses Lung nodule Pulmonary fibrosis (HCC) Procedures CT chest wo IV contrast Loan Madrigal PA-C [address] [address] Referral ID Status Reason Start Date Expiration Date V isits Requested Visits Authorized [id number] Pending Review 10/20/2022 04/18/2023 1 1 Specialty Diagnoses / Procedures Referred By Contac t Referred To Contact General Surgery Diagnoses Dysphagia, unspecified type Procedures IA OFFICE/OUTPATIENT NEW HIGH MDM 60-74 MINUTES Loan Madrigal PA-C [address] [address] [facility] [address] [place] [address] Referral ID Status Reason Start Date Expiration Date Visits Requested Visits Authorized [id number] Authorized Specialty Services Required 10/20/2022 10/20/2023 1 1 Specialty Diagnoses / Procedures Referred By Contac t Referred To Contact CT IMAGING Diagnoses Lung nodules Procedures CT CHEST WO IVCON DIAGNOSTIC COMPUTED TOMOGRAPHY THORAX W/O Keely Amador MD [address] [place] [address] [place] [address] Referral ID Status Reason Start Date Expiration Date Visits Requested Visits Authorized [id number] Authorized Auto-Generat ed Referral 12/11/2024 10/12/2025 1 1 Discharge Instructions * Attachments The following attachments cannot be sent through Care Everywhere. * Nosebleeds (Swiss) documented in this encounter Assessments Diagnosis Epistaxis, [...] 7:55pm Acute cystitis with hematuria December 24, 025 7:55pm Ambulatory dysfunction December 24, 2024 [...] 7:55pm Burst fracture of lumbar vertebra December 62024 7:55pm Chronic anticoagulation December 24, 2024 7: [...] Room 4 January 14, 2025 10:33 am back February 11, 2025 10:3 4pm Reason for Visit Admit Date NAT (acute kidney injury) November 17 4:40pm Septic shock November 17, 2024 4:4 0pm Shock November 17, 2024 4:4 0pm Compression fracture of L3 vertebra December 24, 2024 7:55pm Status post kyphoplasty [...] fracture of L2 December 24, 2024 7:55pm Generalized weakness December [...] for self December 24, 2024 7: 55pm Compression fracture of L3 vertebra January 14, 2025 10:23am Status post kyphoplasty January 14, 2025 1 0:23am Chief Complaint Admit Date SEPTIC SHOCK November [...] BACK PAIN READIATING INTO HIPS W/ LUMBAR May 7th, 2025 7:39am SEVERE BACK PAIN READIATING INTO HIPS [...] Room 4 January 14, 2025 10:33 am back February 11, 2025 10:3 4pm CONCERN FOR BLADDER/KIDNEY INFECTION Barney 2024 10:32am Reason for Visit Admit Date NAT (acute kidney injury) November 17 4:40pm Septic shock November 17, 2024 4:4 0pm Shock November 17, 2024 4:4 0pm Compression fracture of L3 vertebra December 24, 2024 7:55pm Status post kyphoplasty [...] fracture of L2 December 24, 2024 7:55pm Generalized weakness December [...] for self December 24, 2024 7: 55pm Compression fracture of L3 vertebra January 14, 2025 10:23am Status post kyphoplasty January 14, 2025 1 0:23am Acute cystitis without hematuria March 082024 10:32am Chief Complaint Admit Date SEPTIC SHOCK November [...] Room 4 January 14, 2025 10:33 am back February 11, 2025 10:3 4pm CONCERN FOR BLADDER/KIDNEY INFECTION Barney 2024 10:32am LUMBAR SPINE March 13, 2025 10:2 4am Room 4 March 13, 2025 10:3 6am Reason for Visit Admit Date NAT (acute kidney injury) November 17 4:40pm Septic shock November 17, 2024 4:4 0pm Shock November 17, 2024 4:4 0pm Compression fracture of L3 vertebra December 24, 2024 7:55pm Status post kyphoplasty December 24, 2024 7: 55pm Abnormal finding on urinalysis December 24, 2024 7:55pm Acute cystitis with hematuria December 24, 025 7:55pm Ambulatory dysfunction December 24, 2024 7:5 5pm Back pain December 24, 2024 7:55pm Burst fracture of lumbar vertebra December 7:55pm Chronic anticoagulation December 24, 2024 7: 55pm Closed compression fracture of lumbosacr al spine December 24, 2024 7:55pm Compression fracture of L2 December 24, 2024 7:55pm Generalized weakness December [...] for self December 24, 2024 7: 55pm Compression fracture of L3 vertebra January 14, 2025 10:23am Status post kyphoplasty January 14, 2025 1 0:23am Acute cystitis without hematuria March 082024 10:32am Arthritis of left hip March 13, 2025 10 :24am Compression fracture of L3 vertebra March 13, 2025 10:24am Low bone density March 13, 2025 10:2 4am Status post kyphoplasty March 13, 2025 10:24am Chief Complaint Admit Date SEVERE BACK PAIN READIATING INTO HIPS W/ [...] Room 4 January 14, 2025 10:33 am back February 11, 2025 10:3 4pm CONCERN FOR BLADDER/KIDNEY INFECTION Barney 2024 10:32am LUMBAR SPINE March 13, 2025 10:2 4am Room 4 March 13, 2025 10:3 6am FALL April 22, 2025 6:39pm Reason for Visit Admit Date Compression fracture of L3 vertebra December 24, 2024 7:55pm Status post kyphoplasty [...] fracture of L2 December 24, 2024 7:55pm Generalized weakness December [...] for self December 24, 2024 7: 55pm Compression fracture of L3 vertebra January 14, 2025 10:23am Status post kyphoplasty January 14, 2025 1 0:23am Acute cystitis without hematuria March 082024 10:32am Arthritis of left hip March 13, 2025 10 :24am Compression fracture of L3 vertebra March 13, 2025 10:24am Low bone density March 13, 2025 10:2 4am Status post kyphoplasty March 13, 2025 10:24am Chief Complaint Admit Date back February 11, 2025 10:3 4pm CONCERN FOR BLADDER/KIDNEY INFECTION Feb 10:32am LUMBAR SPINE March 13, 2025 10:2 4am Room 4 March 13, 2025 10:3 6am FALL April 22, 2025 6:39pm MULTIPLE TRAUMAS April 29, 2025 6:05pm MULTIPLE TRAUMAS April 30, 2025 3:04pm MULTIPLE TRAUMAS April 30, 2025 3:07pm MULTIPLE TRAUMAS May 01, 2025 8:32am MULTIPLE TRAUMAS May 01, 2025 1:02pm MULTIPLE TRAUMAS May 02, 2025 9:45am MULTIPLE TRAUMAS May 02, 2025 12:46pm MULTIPLE TRAUMAS May 05, 2025 8:41am MULTIPLE TRAUMAS May 06, 2025 9:20am MULTIPLE TRAUMAS May 06, 2025 1:11pm MULTIPLE TRAUMAS May 08, 2025 8:58am MULTIPLE TRAUMAS May 09, 2025 9:38am MULTIPLE TRAUMAS May 12, 2025 9:18am MULTIPLE TRAUMAS May 13, 2025 10:13am MULTIPLE TRAUMAS May 13, 2025 11:48am MULTIPLE TRAUMAS May 14, 2025 1:03pm MULTIPLE TRAUMAS May 15, 2025 11:25am WOUND May 19, 2025 2:02pm Reason for Visit Admit Date Acute cystitis without hematuria March 082024 10:32am Status post kyphoplasty March 13, 2025 10:24am Arthritis of left hip March 13, 2025 10 :24am Compression fracture of L3 vertebra March 13, 2025 10:24am Low bone density March 13, 2025 10:2 4am Dehydration April 29, 2025 6:05pm Fall April 29, 2025 6:05pm Left shoulder pain April 29, 2025 6:05pm Multiple rib fractures April 29 6:05pm Physical debility April 29, 2025 6:05pm Subdural hematoma April 29, 2025 6:05pm Vertebral compression fracture April 29, 2025 6:05pm Chronic pain April 29, 2025 6:05pm Compression fracture of L3 vertebra Sept ember 2024 6:05pm Exercise hypoxemia April 29, 2025 6:05pm Hypoxemia associated with sleep Septembe r 2024 6:05pm 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 April 29, 2025 6:05pm Osteoporosis April 29, 2025 6:05pm Paroxysmal atrial fibrillation April 29, 2025 6:05pm Psoriatic arthritis April 29, 2025 6:05pm Pulmonary hypertension April 29 6:05pm Pulmonary nodule 1 cm or greater in diam eter April 29, 2025 6:05pm Venous insufficiency April 29, 2025 6:05pm Vitamin D deficiency April 29, 2025 6:05pm Cellulitis April 29, 2025 6:05pm Traumatic hematoma of right knee Septemb er 2024 6:05pm Chronic anticoagulation April 29, 025 6:05pm Chief Complaint Admit Date back February 11, 2025 10:3 4pm CONCERN FOR BLADDER/KIDNEY INFECTION Barney 2024 10:32am LUMBAR SPINE March 13, 2025 10:2 4am Room 4 March 13, 2025 10:3 6am FALL April 22, 2025 6:39pm MULTIPLE TRAUMAS April 29, 2025 6:05pm MULTIPLE TRAUMAS April 30, 2025 3:04pm MULTIPLE TRAUMAS April 30, 2025 3:07pm MULTIPLE TRAUMAS May 01, 2025 8:32am MULTIPLE TRAUMAS May 01, 2025 1:02pm MULTIPLE TRAUMAS May 02, 2025 9:45am MULTIPLE TRAUMAS May 02, 2025 12:46pm MULTIPLE TRAUMAS May 05, 2025 8:41am MULTIPLE TRAUMAS May 06, 2025 9:20am MULTIPLE TRAUMAS May 06, 2025 1:11pm MULTIPLE TRAUMAS May 08, 2025 8:58am MULTIPLE TRAUMAS May 09, 2025 9:38am MULTIPLE TRAUMAS May 12, 2025 9:18am MULTIPLE TRAUMAS May 13, 2025 10:13am MULTIPLE TRAUMAS May 13, 2025 11:48am MULTIPLE TRAUMAS May 14, 2025 1:03pm MULTIPLE TRAUMAS May 15, 2025 11:25am WOUND May 19, 2025 2:02pm WOUND May 21, 2025 7: 53am Reason for Visit Admit Date Acute cystitis without hematuria March 082024 10:32am Status post kyphoplasty March 13, 2025 10:24am Arthritis of left hip March 13, 2025 10 :24am Compression fracture of L3 vertebra March 13, 2025 10:24am Low bone density March 13, 2025 10:2 4am Dehydration April 29, 2025 6:05pm Fall April 29, 2025 6:05pm Left shoulder pain April 29, 2025 6:05pm Multiple rib fractures April 29 6:05pm Physical debility April 29, 2025 6:05pm Subdural hematoma April 29, 2025 6:05pm Vertebral compression fracture April 29, 2025 6:05pm Chronic pain April 29, 2025 6:05pm Compression fracture of L3 vertebra Sept ember 2024 6:05pm Exercise hypoxemia April 29, 2025 6:05pm Hypoxemia associated with sleep Septembe r 2024 6:05pm Mild cognitive impairment of uncertain or unknown etiology April 29, 2025 6:05pm Osteoporosis April 29, 2025 6:05pm Paroxysmal atrial fibrillation April 29, 2025 6:05pm Psoriatic arthritis April 29, 2025 6:05pm Pulmonary hypertension April 29 6:05pm Pulmonary nodule 1 cm or greater in diam eter April 29, 2025 6:05pm Venous insufficiency April 29, 2025 6:05pm Vitamin D deficiency April 29, 2025 6:05pm Cellulitis April 29, 2025 6:05pm Traumatic hematoma of right knee Septemb er 2024 6:05pm Chronic anticoagulation April 29 025 6:05pm Ulcer of right leg May 19, 2025 2:02pm Additional Source Comments INFORMATION SOURCE (unrecogn ized section and content) DATE CREATED AUTHOR 02/13/2018 [facility] DATE CREATED AUTHOR AUTHOR'S ORGANIZ ATION 07/11/2021 [facility] DATE CREATED AUTHOR AUTHOR'S ORGANIZ ATION 11/17/2021 [facility] ([place]) DATE CREATED AUTHOR AUTHOR'S ORGANIZ ATION 04/30/2022 [facility] DATE CREATED AUTHOR AUTHOR'S ORGANIZ ATION 12/02/2022 [facility] DATE CREATED AUTHOR AUTHOR'S ORGANIZ ATION 10/05/2024 [facility] DATE CREATED AUTHOR AUTHOR'S ORGANIZ ATION 03/08/2025 [facility] DATE CREATED AUTHOR AUTHOR'S ORGANIZ ATION 05/15/2025 [facility] DATE CREATED AUTHOR AUTHOR'S ORGANIZ ATION 06/01/2025 [facility] DATE CREATED AUTHOR AUTHOR'S ORGANIZ ATION 06/30/2025 [facility] Reason for Visit (unrecogniz ed section and [...] Labs Reason Comments Received Outside Medical Records [facility] Lab draw 11/21/2022 Reason Comments 6 Month Exam Reason Onset Date Comments Surgery Scheduling 12/13/2022 Reason Onset Date Comments Refill Request 12/28/2022 Reason Comments Received Outside Medical Records [facility] Electrodiagnostic testing 12/30/2022 Reason Onset [...] IV contrast Loan Madrigal PA-C [address] [address] Referral ID Status Reason Start Date Expiration Date V isits Requested Visits Authorized [id number] Authorized 05/17/2023 11/13/2023 1 1 Reason Onset Date Comments Refill Request 06/12/2023 Reason Comments Spirometry Specialty Diagnoses / Procedures Referred By Contac t Referred To Contact [facility] Diagnoses Chronic obstructive pulmonary disease, unspecified COPD type (HCC) Procedures LUNG DIFFUSION CAPACITY (DLCO) DIFFUSING CAPACITY Keely Givens MD [address] [place] [address] [address] Referral ID Status Reason Start Date Expiration Date V isits Requested Visits Authorized [id number] Closed Auto-Generate d Referral 06/01/2023 06/30/2024 1 1 Specialty Diagnoses / Procedures Referred By Contac t Referred To Contact [facility] Diagnoses Chronic obstructive pulmonary disease, unspecified COPD type (HCC) Procedures SPIROMETRY WITH DILATOR IF OBSTRUCTED BRNCDILAT RSPSE SPMTRY PRE&POST-BRNCDILAT ADMN Keely Givens MD [address] [place] [address] [address] Referral ID Status Reason Start Date Expiration Date V isits Requested Visits Authorized [id number] Closed Auto-Generate d Referral 06/01/2023 06/30/2024 1 1 Reason Comments New Patient COPD Specialty Diagnoses / Procedures Referred By Contac t Referred To Contact Pulmonary and Critical Care Medicine Diagnoses Chronic obstructive pulmonary disease, unspecified COPD type (HCC) Procedures CONSULT TO PULM/CRITICAL CARE OFFICE/OUTPATIENT [facility] MDM 60-74 MINUTES Ruby Prater, SHUTTLE DRIVER.RN HEMODIALYSIS [address] [place] [address] [address] [place] [address] Referral ID Status Reason Start Date Expiration Date V isits Requested Visits Authorized [id number] Closed PCP Requested Referral 06/01/2023 08/20/2023 1 1 Reason Comments Received Outside Medical Records Specialty Diagnoses / Procedures Referred By Contac t Referred To Contact MR IMAGING Diagnoses Pancreatic cyst Procedures MRI PANC/MARCK WO/W IVCON MRI ABDOMEN W/O & W/CONTRAST MATERIAL Fernanda Horne PA-C [address] [place] [address] Mr Imaging [facility] Referral ID Status Reason Start Date Expiration Date V isits Requested Visits Authorized [id number] Closed Auto-Generate d Referral 06/18/2023 07/17/2024 1 [...] Exam Specialty Diagnoses / Procedures Referred By Contac t Referred To Contact CT IMAGING Diagnoses Interstitial pulmonary disease (HCC) Procedures CT CHEST WO IVCON DIAGNOSTIC COMPUTED TOMOGRAPHY THORAX W/O Keely Amador MD [address] [place] [address] Ct Imaging [facility] Referral ID Status Reason Start Date Expiration Date V isits Requested Visits Authorized [id number] Closed Auto-Generate d Referral 12/28/2023 01/26/2025 1 1 Reason Comments Results Chest CT Reason Comments Received Outside Medical Records [facility] Reason Comments Received Outside Medical Records [facility] 01/29/24 Reason Onset Date Comments Refill Request 03/27/2024 Reason Onset Date Comments Refill Request 04/04/2024 Reason Comments Received Outside Medical Records [facility] xra y 04/08/24 Reason Comments COPD Reason [...] US Specialty Diagnoses / Procedures Referred By Smoothac t Referred To Contact US IMAGING Diagnoses Epigastric pain Procedures US ABD RIGHT UPPER QUADRANT US ABDOMINAL REAL TIME W/IMAGE LIMITED Ana Meza, SHUTTLE DRIVER.RN HEMODIALYSIS [address] [place] [address] [place] [address] Referral ID Status Reason Start Date Expiration Date V isits Requested Visits Authorized [id number] Closed Auto-Generate d Referral 07/10/2024 08/09/2025 1 1 Reason Comments Results Patient Question Results and her Panc reas Specialty Diagnoses / Procedures Referred By Raudel t Referred To Contact Pulmonology Diagnoses Chronic obstructive pulmonary disease, unspecified COPD type (HCC) Procedures Complete PFT study Loan Madrigal PA-C 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 [place] [address] [facility] [address] [place] [address] Referral ID Status Reason Start Date Expiration Date V isits Requested Visits Authorized [id number] Closed Specialty Services Required 10/20/2022 10/20/2023 1 1 Reason Comments Follow-up COPD, dyspnea Reason Comments Orders Reason Comments Received Outside Medical Records [facility] Medical Services Orders for oxygen. 07/30/2024 Reason Comments Established Patient CT results Abnormal Chest X-ray Reason Comments Radiology CT Specialty Diagnoses / Procedures Referred By Contac t Referred To Contact CT IMAGING Diagnoses Lung nodules Ground glass opacity present on imaging of lung Procedures CT CHEST WO IVCON DIAGNOSTIC COMPUTED TOMOGRAPHY THORAX W/O Keely Amador MD [address] [place] [address] [place] [address] Referral ID Status Reason Start Date Expiration Date V isits Requested Visits Authorized [id number] Closed Auto-Generate d Referral 07/31/2024 02/28/2025 1 1 Reason Onset Date Comments Other 11/28/2024 Central scheduli ng Reason Comments Home Care MD to follow Reason Comments Osteoporosis Reason Onset Date Comments Home Visit 01/31/2025 Reason Onset Date Comments Other 03/07/2025 Blood Pressure Check 03/07/2025 Reason Comments New Patient Evaluation Reason Onset Date Comments Other 03/28/2025 DEXA bone densit y results Reason Onset Date Comments Med Management 05/06/2025 Reason Onset Date Comments Appointment Request 05/14/2025 Hospital f/u Goals (unrecognized section and content) Type Treatment Intervention Code Status: Full Code - VerifiedDiscussed with: Patient Goals may be documented in an alternate section Care Teams (unrecognized sec tion and content) Team Status: Active Member Role Status Dates Dr. Marty Guthrie MD Primary Care Provider Active Team Status: [...] Provider Active Start: November 20, 2024 Dr. lEsy Perdomo MD Admit Provider Active Star t: [...] Team Status: Active Member Role Status Dates NISA, GUTHRIE Primary Care Provider Active Star t: [...] Team Status: Active Member Role Status Dates NISA, GUTHRIE Primary Care Provider Active Star t: [...] Team Status: Active Member Role Status Dates NISA, GUTHRIE Primary Care Provider Active Star t: [...] Provider Active Star t: November 24, 2024 Team Status: Inactive Member Role Status Dates NISA, GUTHRIE Primary Care Provider Active Star t: [...] End: January 01, 2025 Dr. Sveta Macias DO Other Provider Active Start : December 24, 2024 End: January 01, 2025 Team Status: Active Member Role Status Dates NISA GUTHRIE Primary Care Provider Active Star t: December 25, 2024 Oskar Camargo MD Emergency Provider Active Star t: December 25, 2024 Dr. Kevin Caballero DO Admit Provider Active Start: December 25, 2024 Dr. Kevin Caballero DO Other Provider Active Start: December 25, 2024 Dr. Sveta Macias DO Attending Provider Active S tart: December 25, 2024 Dr. Sveta Macias DO Other Provider Active Start : December 25, 2024 Dr. Daniel Hall MD Other Provider Active Star t: December 25, 2024 Dr. Mike Malagon MD Other Provider Active Star t: December 25, 2024 Team Status: Active Member Role Status Dates NISANANCYEL Primary Care Provider Active Star t: December 26, 2024 Oskar Camargo MD Emergency Provider Active Star t: December 26, 2024 Dr. Kevin Caballero , DO Admit Provider Active Start: December 26, 2024 Dr. Kevin Caballero , DO Other Provider Active Start: December 26, 2024 Dr. Sveta Macias , Attending Provider Active S tart: December 26, 2024 Dr. Sveta Macias , Other Provider Active Start : December 26, 2024 Dr. Daniel Hall MD Other Provider Active Star t: December 26, 2024 Dr. Mike Malagon MD Other Provider Active Star t: December 26, 2024 Team Status: Active Member Role Status Dates NISANANCYEL Primary Care Provider Active Star t: December 26, 2024 Oskar Camargo MD Emergency Provider Active Star t: December 26, 2024 Dr. Kevin Caballero , Admit Provider Active Start: December 26, 2024 Dr. Kevin Caballero , Other Provider Active Start: December 26, 2024 Dr. Sveta Macias , Other Provider Active Start : December 26, 2024 Dr. Daniel Hall MD Other Provider Active Star t: December 26, 2024 Dr. Mike Malagon MD Attending Provider Active Start: December 26, 2024 Dr. Mike Malagon MD Other Provider Active Star t: December 26, 2024 Dr. Goldy Warren , Referring Provider Active Start: December 26, 2024 Team Status: Active Member Role Status Dates NISANANCY HARRISEL Primary Care Provider Active Star t: December 27, 2024 Oskar Camargo MD Emergency Provider Active Star t: December 27, 2024 Dr. Kevin Caballero , Admit Provider Active Start: December 27, 2024 Dr. Kevin Caballero DO Other Provider Active Start: December 27, 2024 Dr. Sveta Macias , Attending Provider Active S tart: December 27, 2024 Dr. Sveta Macias , DO Other Provider Active Start : December 27, 2024 Dr. Daniel Hall MD Other Provider Active Star t: December 27, 2024 Dr. Mike Malagon MD Other Provider Active Star t: December 27, 2024 Team Status: Active Member Role Status Dates NISA GUTHRIE Primary Care Provider Active Star t: [...] Provider Active Star t: December 27, 2024 MORALES Arias Attending Provider Active Start: December 27, 2024 Team Status: Active Member Role Status Dates NISA GUTHRIE Primary Care Provider Active Star t: [...] Team Status: Active Member Role Status Dates NISA, GUTHRIE Primary Care Provider Active Star t: [...] Team Status: Active Member Role Status Dates NISA GUTHRIE Primary Care Provider Active Star t: [...] 30, 2024 Dr. Goldy Warren , DO Referring Provider Active Start: December 30, 2024 Dr. [...] December 31, 2024 Dr. Goldy Warren , Attending Provider Active Start: December 31, 2024 [...] Goldy Warren , Attending Provider Active Start: January 01, 2025 Dr. Goldy Warren , DO Other Provider Active S tart: January 01, 2025 Dr. Sveta Macias , DO Other Provider Active Start : January 01, 2025 Team Status: Inactive Member Role Status Dates [place] Younger Attending Provider Active Star t: January 14, 2025 End: January 14, 2025 NISACLEVELAND HARRIS Primary Care Provider Active Star t: January 14, 2025 End: January 14, 2025 NISACLEVELAND HARRIS Referring Provider Active Start: January 14, 2025 End: January 14, 2025 Team Status: Inactive Member Role Status Dates Dr. Brendan Mclain MD Attending Provider Active S tart: January 14, 2025 End: January 14, 2025 Team Status: Inactive Member Role Status Dates Dr. Marty Guthrie MD Primary Care Provider Active Start: February 11, 2025 End: February 12, 2025 Dr. Lucas Wong DO Emergency Provider Active Start: February 11, 2025 End: February 12, 2025 Insights Strategist Relationship Specialty Start Date End Date Nieves Frias MD PCP - General 05/07/15 Insights Strategist Relationship Specialty Start Date End Date Nieves Frias MD PCP - General 05/07/15 Insights Strategist Relationship Specialty Start Date End Date Nieves Frias MD PCP - General 05/07/15 Insights Strategist Relationship Specialty Start Date End Date Nieves Frias PCP - General Internal Medicine 07/26/16 Insights Strategist Relationship Specialty Start Date End Date Giselle Elizondo MD [address] [place] [address] [place] [address] PCP - General Family Medicine 07/05/22 Insights Strategist Relationship Specialty Start Date End Date Giselle Elizondo MD [address] [place] [address] [place] [address] PCP - General Family Medicine 07/05/22 Insights Strategist Relationship Specialty Start Date End Date Giselle Elizondo MD [address] [place] [address] [place] [address] PCP - General Family Medicine 07/05/22 Insights Strategist Relationship Specialty Start Date End Date Giselle Elizondo MD [address] [place] [address] [place] [address] PCP - General Family Medicine 07/05/22 Insights Strategist Relationship Specialty Start Date End Date Giselle Elizondo MD [address] [place] [address] [place] [address] PCP - General Family Medicine 07/05/22 Insights Strategist Relationship Specialty Start Date End Date Giselle Elizondo MD [address] [place] [address] [place] [address] PCP - General Family Medicine 07/05/22 Insights Strategist Relationship Specialty Start Date End Date Giselle Elizondo MD [address] [place] [address] [place] [address] PCP - General Family Medicine 07/05/22 Insights Strategist Relationship Specialty Start Date End Date Giselle Elizondo [address] [place] [address] PCP - General Family Medicine 10/14/22 Insights Strategist Relationship Specialty Start Date End Date Giselle Elizondo MD [address] [place] [address] [place] [address] PCP - General Family Medicine 07/05/22 Team Status: Active Member Role Status Dates Dr. Nieves Frias MD Family Provider Active Dr. Harpreet Elizondo MD Primary Care Provider Active Team Status: Inactive Member Role Status Dates Dr. Harpreet Elizondo MD Primary Care Provider Active Dr. Malcom Giron MD Attending Provider, Lori stephen Active Insights Strategist Relationship Specialty Start Date End Date Giselle Elizondo [address] [place] [address] PCP - General Family Medicine 10/14/22 Insights Strategist Relationship Specialty Start Date End Date Giselle Elizondo [address] [place] [address] PCP - General Family Medicine 10/14/22 Insights Strategist Relationship Specialty Start Date End Date Giselle Elizondo MD [address] [place] [address] [place] [address] PCP - General Family Medicine 07/05/22 Insights Strategist Relationship Specialty Start Date End Date Giselle Elizondo MD [address] [facility] [address] [place], [place] [address] PCP - General Family Medicine 07/05/22 Insights Strategist Relationship Specialty Start Date End Date Giselle Elizondo [address] [place], [place] [id number] PCP - General Family Medicine 10/14/22 Insights Strategist Relationship Specialty Start Date End Date Giselle Elizondo MD [address] [facility] [address] [place] [address] PCP - General Family Medicine 07/05/22 Insights Strategist Relationship Specialty Start Date End Date Giselle Elizondo [address] [place] [address] PCP - General Family Medicine 10/14/22 Insights Strategist Relationship Specialty Start Date End Date Giselle Elizondo MD [address] [facility] [place] [address] PCP - General Family Medicine 07/05/22 Insights Strategist Relationship Specialty Start Date End Date Giselle Elizondo MD [address] [facility] [address] [place] [address] PCP - General Family Medicine 07/05/22 Insights Strategist Relationship Specialty Start Date End Date Giselle Elizondo [address] [place], [place] [address] PCP - General Family Medicine 10/14/22 Insights Strategist Relationship Specialty Start Date End Date Giselle Elizondo MD [address] [facility] [address] [place] [id number] PCP - General Family Medicine 07/05/22 Insights Strategist Relationship Specialty Start Date End Date Giselle Elizondo MD [address] [facility] [address] [place] [id number] PCP - General Family Medicine 07/05/22 Insights Strategist Relationship Specialty Start Date End Date Giselle Elizondo MD [address] [facility] [place] [address] PCP - General Family Medicine 07/05/22 Insights Strategist Relationship Specialty Start Date End Date Giselle Elizondo MD [address] [facility] [address] [place] [address] PCP - General Family Medicine 07/05/22 Insights Strategist Relationship Specialty Start Date End Date Giselle Elizondo MD [address] [facility] [address] [place] [address] PCP - General Family Medicine 07/05/22 Insights Strategist Relationship Specialty Start Date End Date Giselle Elizondo [address] [place] [address] PCP - General Family Medicine 10/14/22 Insights Strategist Relationship Specialty Start Date End Date Giselle Elizondo MD [address] [facility] [address] [place], [place] [address] PCP - General Family Medicine 07/05/22 Insights Strategist Relationship Specialty Start Date End Date Giselle Elizondo MD [address] [facility] [address] [place] [id number] PCP - General Family Medicine 07/05/22 Insights Strategist Relationship Specialty Start Date End Date [facility]elle [facility]izondo [facility] [place] [id number] PCP - General Family Medicine 10/14/22 Insights Strategist Relationship Specialty Start Date End Date Giselle Elizondo MD [address] [place] [address] PCP - General Family Medicine 07/05/22 Insights Strategist Relationship Specialty Start Date End Date Giselle Elizondo MD [address] [place] [address] PCP - General Family Medicine 07/05/22 Insights Strategist Relationship Specialty Start Date End Date Giselle Elizondo MD [address] [place] [address] PCP - General Family Medicine 07/05/22 Insights Strategist Relationship Specialty Start Date End Date Giselle Elizondo MD [address] [place] [address] PCP - General Family Medicine 07/05/22 Insights Strategist Relationship Specialty Start Date End Date Giselle Elizondo MD [address] [place] [address] PCP - General Family Medicine 07/05/22 Insights Strategist Relationship Specialty Start Date End Date Giselle Elizondo MD [address] [place] [address] PCP - General Family Medicine 07/05/22 Insights Strategist Relationship Specialty Start Date End Date Giselle Elizondo MD [address] [place] [address] PCP - General Family Medicine 07/05/22 Insights Strategist Relationship Specialty Start Date End Date Giselle Elizondo MD [address] [place] [address] PCP - General Family Medicine 07/05/22 Insights Strategist Relationship Specialty Start Date End Date Giselle Elizondo MD [address] [place] [address] PCP - General Family Medicine 07/05/22 Insights Strategist Relationship Specialty Start Date End Date Giselle Elizondo MD [address] [place] [address] PCP - General Family Medicine 07/05/22 Insights Strategist Relationship Specialty Start Date End Date Giselle Elizondo MD [address] [place] [address] PCP - General Family Medicine 07/05/22 Insights Strategist Relationship Specialty Start Date End Date Giselle Elizondo MD [address] [place] [address] PCP - General Family Medicine 07/05/22 Insights Strategist Relationship Specialty Start Date End Date Giselle Elizondo MD [address] [place] [address] PCP - General Family Medicine 07/05/22 Insights Strategist Relationship Specialty Start Date End Date Giselle Elizondo MD [address] [place] [address] PCP - General Family Medicine 07/05/22 Insights Strategist Relationship Specialty Start Date End Date Giselle Elizondo MD [address] [place] [address] PCP - General Family Medicine 07/05/22 Insights Strategist Relationship Specialty Start Date End Date Giselle Elizondo MD [address] [facility] [address] [place], [place] [address] PCP - General Family Medicine 07/05/22 Insights Strategist Relationship Specialty Start Date End Date Giselle Elizondo [address] [facility] [address] [place], [place] [address] PCP - General Family Medicine 10/14/22 Insights Strategist Relationship Specialty Start Date End Date Giselle Elizondo MD [address] [facility] [place] [address] PCP - General Family Medicine 07/05/22 Insights Strategist Relationship Specialty Start Date End Date Giselle Elizondo MD [address] [facility] [place] [address] PCP - General Family Medicine 07/05/22 Insights Strategist Relationship Specialty Start Date End Date Giselle Elizondo MD [address] [facility] [address] [place], [place] [address] PCP - General Family Medicine 07/05/22 Insights Strategist Relationship Specialty Start Date End Date Giselle Elizondo [address] [place] [address] PCP - General Family Medicine 10/14/22 Insights Strategist Relationship Specialty Start Date End Date Giselle Elizondo [address] [place] [address] PCP - General Family Medicine 10/14/22 Insights Strategist Relationship Specialty Start Date End Date Lexi Merino MD [address] [place] [id number] PCP - General 01/31/22 Insights Strategist Relationship Specialty Start Date End Date Lexi Merino MD [address] [place] [address] [id number] PCP - General 01/31/22 Insights Strategist Relationship Specialty Start Date End Date Giselle Elizondo 1 [facility] [place] [address] PCP - General Family Medicine 10/14/22 Insights Strategist Relationship Specialty Start Date End Date Giselle Elizondo MD [address] [facility] [place] [address] PCP - General Family Medicine 07/05/22 Ana Meza APRN.RN HEMODIALYSIS [address] [facility] [address] [place] [address] Bottom Hoop Driver Internal Medicine 07/28/24 Insights Strategist Relationship Specialty Start Date End Date Giselle Elizondo MD [address] [facility] [place] [address] PCP - General Family Medicine 07/05/22 Ana Meza, LAVELLE.RN HEMODIALYSIS [address] [facility] [address] [place], [place] [address] Bottom Hoop Driver Internal Medicine 07/28/24 Insights Strategist Relationship Specialty Start Date End Date Giselle Elizondo MD [address] [facility] [place] [address] PCP - General Family Medicine 07/05/22 Ana Meza APRN.RN HEMODIALYSIS [address] [facility] [address] [place], [place] [address] Bottom Hoop Driver Internal Medicine 07/28/24 Insights Strategist Relationship Specialty Start Date End Date Giselle Elizondo MD [address] [facility] [address] [place], [place] [address] PCP - General Family Medicine 07/05/22 Ana Meza APRN.RN HEMODIALYSIS [address] [facility] [address] [place] [address] Bottom Hoop Driver Internal Medicine 07/28/24 Insights Strategist Relationship Specialty Start Date End Date Giselle Elizondo MD [address] [facility] [place] [address] PCP - General Family Medicine 07/05/22 Ana Meza APRN.RN HEMODIALYSIS [address] [facility] [address] [place], [place] [address] Bottom Hoop Driver Internal Medicine 07/28/24 Team Status: Active Member Role Status Dates NISA GUTHRIE Primary Care Provider Active Team Status: [...] Star t: November 17, 2024 Team Status: Active Member Role Status [...] t: November 18, 2024 Dr. Gato Givens , Attending Provider Active S tart: November 18, 2024 Dr. Gato Givens , Other Provider Active Start : November 18, [...] t: November 18, 2024 Dr. Jose James , Other Provider Active St art: November 18, [...] Active Star t: November 20, 2024 Dr. Kevni Robles MD Other Provider Active Star t: [...] Star t: November 21, 2024 Dr. Reza Pedarza DO Emergency Provider Active Start: November 21, [...] Provider Active S tart: November 21, 2024 Insights Strategist Relationship Specialty Start Date End Date [facility] [place] [address] PCP - General Family Medicine 09/16/24 Insights Strategist Relationship Specialty Start Date End Date Marty Guthrie MD [address] [place] [id number] PCP - General Family Medicine 10/03/24 Insights Strategist Relationship Specialty Start Date End Date Marty Guthrie MD [address] [place] [address] PCP - General Family Medicine 10/03/24 Insights Strategist Relationship Specialty Start Date End Date Marty Guthrie MD [address] [place] [address] PCP - General Family Medicine 10/03/24 Insights Strategist Relationship Specialty Start Date End Date Marty [facility] [place] [address] PCP - General Family Medicine 09/16/24 Insights Strategist Relationship Specialty Start Date End Date Marty Guthrie MD [address] [place] [address] PCP - General Family Medicine 09/16/24 Team Status: Active Member Role Status Dates [place] Primary Care Provider Active Star t: December 24, 2024 Oskar Camargo MD Emergency Provider Active Star t: December 24, 2024 Dr. Kevin Caballero DO Admit Provider Active Start: December 24, 2024 Dr. Kevin Caballero DO Attending Provider Active Start: December 24, 2024 Insights Strategist Relationship Specialty Start Date End Date Marty Guthrie MD [address] [place] [address] PCP - General Family Medicine 10/03/24 Goldy Warren [address] [place] [phone] Referring Internal Medicine 12/31/24 Marty Guthrie MD [address] [place] [address] Home Care Provider Family Medicine 12/31/24 Team Status: Active Member Role Status Dates [place] Primary Care Provider Active Star t: December 26, 2024 Oskar Camargo MD Emergency Provider Active Star t: December 26, 2024 Dr. Kevin Caballero , DO Admit Provider Active Start: December 26, 2024 Dr. Kevin Caballero , Other Provider Active Start: December 26, 2024 [...] December 30, 2024 Dr. Sveta Macias , Other Provider Active Start : December 30, 2024 Team Status: Active Member Role Status Dates [place] Younger Attending Provider Active Star t: January 14, 2025 [place] Primary Care Provider Active Star t: January 14, 2025 [place] Referring Provider Active Start: January 14, 2025 Insights Strategist Relationship Specialty Start Date End Date Marty Guthrie MD [address] [place] [address] [place] [address] PCP - General Family Medicine 09/16/24 Insights Strategist Relationship Specialty Start Date End Date Marty Guthrie MD [address] [place] [address] PCP - General Family Medicine 09/16/24 Insights Strategist Relationship Specialty Start Date End Date Marty Guthrie MD [address] [place] [address] PCP - General Family Medicine 09/16/24 Insights Strategist Relationship Specialty Start Date End Date Marty Guthrie MD [address] [place] [address] PCP - General Family Medicine 10/03/24 Goldy Warren [address] [facility] [place] [phone] Referring Internal Medicine 12/31/24 Marty Guthrie MD [address] [place] [address] Home Care Provider Family Medicine 12/31/24 Insights Strategist Relationship Specialty Start Date End Date Marty Guthrie MD [address] [place] [address] PCP - General Family Medicine 10/03/24 Goldy Warren [address] [place] [phone] Referring Internal Medicine 12/31/24 Marty Guthrie MD [address] [place] [address] Home Care Provider Family Medicine 12/31/24 Insights Strategist Relationship Specialty Start Date End Date Marty Guthrie MD [address] [place] [address] PCP - General Family Medicine 09/16/24 Team Status: Active Member Role/Relationship Status Dates Dr. Marty Guthrie MD Primary Care Provider Active Team Status: Inactive Member Role/Relationship Status Dates NISACLEVELAND Primary Care Provider Active Star t: November [...] November 24, 2024 Team Status: Active Member Role/Relationship Status Dates NISACLEVELAND Primary Care Provider Active Star t: November [...] Star t: November 18, 2024 Dr. Gato Givesn DO Other Provider Active Start : November [...] November 18, 2024 Team Status: Active Member Role/Relationship Status Dates [place] Primary Care Provider [...] Star t: November 18, 2024 Dr. Jose Jmaes DO Other Provider Active St art: November [...] November 18, 2024 Team Status: Active Member Role/Relationship Status Dates Dr. Brendan Mclain MD Attending Provider Active S tart: November 18, 2024 Team Status: Active Member Role/Relationship Status Dates [place] Primary Care Provider [...] November 19, 2024 Team Status: Active Member Role/Relationship Status Dates [place] Primary Care Provider [...] November 19, 2024 Team Status: Active Member Role/Relationship Status Dates NISAC[place] Primary Care Provider Active Star t: November [...] November 20, 2024 Team Status: Active Member Role/Relationship Status Dates [place] Primary Care Provider [...] November 20, 2024 Team Status: Active Member Role/Relationship Status Dates [place] Primary Care Provider [...] November 21, 2024 Team Status: Active Member Role/Relationship Status Dates NISA, GUTHRIE Primary Care Provider Active Star t: [...] November 21, 2024 Team Status: Active Member Role/Relationship Status Dates NISA, GUTHRIE Primary Care Provider Active Star t: [...] November 22, 2024 Team Status: Active Member Role/Relationship Status Dates NISA, GUTHRIE Primary Care Provider Active Star t: [...] November 23, 2024 Team Status: Active Member Role/Relationship Status Dates [place] Primary Care Provider [...] Provider Active Star t: November 24, 2024 Team Status: Inactive Member Role/Relationship Status Dates NISA GUTHRIE Primary Care Provider Active Star t: December 24, 2024 End: January 01, 2025 Oskar Camargo MD Emergency Provider Active Star t: December 24, 2024 End: January 01, 2025 Dr. Kevin Caballero DO Admit Provider Active Start: December 24, 2024 [...] End: January 01, 2025 Dr. Sveta Macias DO Other Provider Active Start : December 24, 2024 End: January 01, 2025 Team Status: Active Member Role/Relationship Status Dates NISA GUTHRIE Primary Care Provider Active Star t: December 25, 2024 Oskar Camargo MD Emergency Provider Active Star t: December 25, 2024 Dr. Kevin Caballero , Admit Provider Active Start: December 25, 2024 [...] December 25, 2024 Team Status: Active Member Role/Relationship Status Dates NISA GUTHRIE Primary Care Provider Active Star t: December 26, 2024 Oskar Camargo MD Emergency Provider Active Star t: December 26, 2024 Dr. Kevin Caballero , Admit Provider Active Start: December 26, 2024 Dr. Kevin Caballero , Other Provider Active Start: December 26, 2024 Dr. Sveta Macias , DO Attending Provider Active S tart: December 26, 2024 Dr. Sveta Macias , Other Provider Active Start : December 26, 2024 Dr. Daniel Hall MD Other Provider Active Star t: December 26, 2024 Dr. Mike Malagon MD Other Provider Active Star t: December 26, 2024 Team Status: Active Member Role/Relationship Status Dates NISA, GUTHRIE Primary Care Provider Active Star t: December 26, 2024 Oskar Camargo MD Emergency Provider Active Star t: December 26, 2024 Dr. Kevin Caballero DO Admit Provider Active Start: December 26, 2024 Dr. Kevin Caballero , Other Provider Active Start: December 26, 2024 Dr. Sveta Macias , Other Provider Active Start : December 26, 2024 Dr. Daniel Hall MD Other Provider Active Star t: December 26, 2024 Dr. Mike Malagon MD Attending Provider Active Start: December 26, 2024 Dr. Mike Malagon MD Other Provider Active Star t: December 26, 2024 Dr. Goldy Warren , Referring Provider Active Start: December 26, 2024 Team Status: Active Member Role/Relationship Status Dates NANCY VEGAEL Primary Care Provider Active Star t: December [...] December 27, 2024 Team Status: Active Member Role/Relationship Status Dates NISA, GUTHRIE Primary Care Provider Active Star t: [...] Provider Active Star t: December 27, 2024 MORALES Arias Attending Provider Active Start: December 27, 2024 Team Status: Active Member Role/Relationship Status Dates NISA, GUTHRIE Primary Care Provider Active Star t: [...] December 28, 2024 Team Status: Active Member Role/Relationship Status Dates [place] Primary Care Provider [...] December 29, 2024 Team Status: Active Member Role/Relationship Status Dates NISA, GUTHRIE Primary Care Provider Active Star t: December 30, 2024 Oskar Camargo MD Emergency Provider Active Star t: December 30, 2024 Dr. Kevin Caballero , Admit Provider Active Start: December 30, 2024 Dr. Kevin Caballero , Other Provider Active Start: December 30, 2024 Dr. Daniel Hall MD Other Provider Active Star t: December 30, 2024 Dr. Mike Malagon MD Attending Provider Active Start: December 30, 2024 Dr. Mike Malagon MD Other Provider Active Star t: December 30, 2024 Dr. Goldy Warren , Referring Provider Active Start: December 30, 2024 Dr. Goldy Warren , DO Other Provider Active S tart: December 30, 2024 Dr. Sveta Macias , DO Other Provider Active Start : December 30, 2024 Team Status: Active Member Role/Relationship Status Dates [place] Primary Care Provider [...] t: December 30, 2024 Dr. Goldy Warren DO Attending Provider Active Start: December 30, 2024 Dr. Goldy Warren , DO Other Provider Active S tart: December 30, 2024 Dr. Sveta Macias , DO Other Provider Active Start : December 30, 2024 Team Status: Active Member Role/Relationship Status Dates NANCY VEGAEL Primary Care Provider Active Star t: December [...] December 31, 2024 Team Status: Active Member Role/Relationship Status Dates NANCY VEGAEL Primary Care Provider Active Star t: December 31, 2024 Oskar Camargo MD Emergency Provider Active Star t: December 31, 2024 Dr. Kevin Caballero , DO Admit Provider Active Start: December 31, 2024 Dr. Kvein Caballero , DO Other Provider Active Start: [...] December 31, 2024 Team Status: Active Member Role/Relationship Status Dates NISANANCY HARRISEL Primary Care Provider Active Star t: January [...] Goldy Warren , Attending Provider Active Start: January 01, 2025 Dr. Goldy Warern , Other Provider Active S tart: January 01, 2025 Dr. Sveta Macias DO Other Provider Active Start : January 01, 2025 Team Status: Inactive Member Role/Relationship Status Dates [place] Younger Attending Provider Active Star t: January 14, 2025 End: January 14, 2025 [place] Primary Care Provider Active Star t: January 14, 2025 End: January 14, 2025 [place] Referring Provider Active Start: January 14, 2025 End: January 14, 2025 Team Status: Inactive Member Role/Relationship Status Dates Dr. Brendan Mclain MD Attending Provider Active S tart: January 14, 2025 End: January 14, 2025 Team Status: Inactive Member Role/Relationship Status Dates Dr. Marty Guthrie MD Primary Care Provider Active Start: February 11, 2025 End: February 12, 2025 Dr. Lucas Wong DO Attending Provider Active Start: February 11, 2025 End: February 12, 2025 Dr. Lucas Wong DO Emergency Provider Active Start: February 11, 2025 End: February 12, 2025 Team Status: Inactive Member Role/Relationship Status Dates Dr. Marty Guthrie MD Primary Care Provider Active Start: March 08, 2025 End: March 08, 2025 Dr. Marty Guthrie MD Referring Provider Active Start: March 08, 2025 End: March 08, 2025 MORALES Todd Attending Provider Active Start: March 08, 2025 End: March 08, 2025 Team Status: Inactive Member Role/Relationship Status Dates Dr. Marty Guthrie MD Primary Care Provider Active Start: March 08, 2025 End: March 08, 2025 KARY ToddC Attending Provider Active Start: March 08, 2025 End: March 08, 2025 Team Status: Inactive Member Role/Relationship Status Dates Dr. Marty Guthrie MD Primary Care Provider Active Start: March 08, 2025 End: March 08, 2025 Dr. Marty Guthrie MD Referring Provider Active Start: March 08, 2025 End: March 08, 2025 MORALES Todd Attending Provider Active Start: March 08, 2025 End: March 08, 2025 Team Status: Active Member Role/Relationship Status Dates Dr. Mike Malagon MD Attending Provider Active Start: March 13, 2025 Dr. Marty Guthrie MD Primary Care Provider Active Start: March 13, 2025 Dr. Marty Guthrie MD Referring Provider Active Start: March 13, 2025 Team Status: Inactive Member Role/Relationship Status Dates Dr. Marty Guthrie MD Primary Care Provider Active Start: March 13, 2025 End: March 13, 2025 Dr. Brendan Mclain MD Attending Provider Active S tart: March 13, 2025 End: March 13, 2025 Team Status: Inactive Member Role/Relationship Status Dates Dr. Mike Malagon MD Attending Provider Active Start: March 13, 2025 End: March 13, 2025 Dr. Marty Guthrie MD Primary Care Provider Active Start: March 13, 2025 End: March 13, 2025 Dr. Marty Guthrie MD Referring Provider Active Start: March 13, 2025 End: March 13, 2025 Insights Strategist Relationship Specialty Start Date End Date Marty Guthrie MD [address] [place] [id number] PCP - General Family Medicine 09/16/24 Insights Strategist Relationship Specialty Start Date End Date Marty Guthrie MD [address] [place] [address] [id number] PCP - General Family Medicine 10/03/24 Goldy Warren [address] [place] [address] Referring Internal Medicine 12/31/24 Marty Guthrie MD [address] [place] [address] [id number] Home Care Provider Family Medicine 12/31/24 Insights Strategist Relationship Specialty Start Date End Date Marty Guthrie MD [address] [place] [address] PCP - General Family Medicine 09/16/24 Team Status: Inactive Member Role/Relationship Status Dates NISAC[place] Primary Care Provider Active Star t: December [...] End: January 01, 2025 Dr. Goldy Warren DO Attending Provider Active Start: December 24, 2024 End: January 01, 2025 Dr. Sveta Macias DO Other Provider Active Start : December 24, 2024 End: January 01, 2025 Team Status: Active Member Role/Relationship Status Dates NISA, GUTHRIE Primary Care Provider Active Star t: December 25, 2024 Oskar Camargo MD Emergency Provider Active Star t: December 25, 2024 Dr. Kevin Caballero DO Admit Provider Active Start: December 25, 2024 Dr. Kevin Caballero DO Other Provider Active Start: December 25, 2024 Dr. Sveta Macias DO Attending Provider Active S tart: December 25, 2024 Dr. Sveta Macias DO Other Provider Active Start : December 25, 2024 Dr. Daniel Hall MD Other Provider Active Star t: December 25, 2024 Dr. Mike Malagon MD Other Provider Active Star t: December 25, 2024 Team Status: Active Member Role/Relationship Status Dates [place]AC[place] Primary Care Provider Active Star t: December 26, 2024 Oskar Camargo MD Emergency Provider Active Star t: December 26, 2024 Dr. Kevin Caballero , DO Admit Provider Active Start: December 26, 2024 Dr. Kevin Caballero , DO Other Provider Active Start: December 26, 2024 Dr. Sveta Macias , Attending Provider Active S tart: December 26, 2024 Dr. Sveta Macias , DO Other Provider Active Start : December 26, 2024 Dr. Daniel Hall MD Other Provider Active Star t: December 26, 2024 Dr. Mike Malagon MD Other Provider Active Star t: December 26, 2024 Team Status: Active Member Role/Relationship Status Dates NISA, GUTHRIE Primary Care Provider Active Star t: December 26, 2024 Oskar Camargo MD Emergency Provider Active Star t: December 26, 2024 Dr. Kevin Caballero , Admit Provider Active Start: December 26, 2024 Dr. Kevin Caballero , Other Provider Active Start: December 26, 2024 Dr. Sveta Macias , Other Provider Active Start : December 26, 2024 Dr. Daniel Hall MD Other Provider Active Star t: December 26, 2024 Dr. Mike Malagon MD Attending Provider Active Start: December 26, 2024 Dr. Mike Malagon MD Other Provider Active Star t: December 26, 2024 Dr. Goldy Warren , Referring Provider Active Start: December 26, 2024 Team Status: Active Member Role/Relationship Status Dates NISA, GUTHRIE Primary Care Provider Active Star t: December 27, 2024 Oskar Camargo MD Emergency Provider Active Star t: December 27, 2024 Dr. Kevin Caballero , Admit Provider Active Start: December 27, 2024 Dr. Kevin Caballero , Other Provider Active Start: December 27, 2024 Dr. Sveta Macias , Attending Provider Active S tart: December 27, 2024 Dr. Sveta Macias , DO Other Provider Active Start : December 27, 2024 Dr. Daniel Hall MD Other Provider Active Star t: December 27, 2024 Dr. Mike Malagon MD Other Provider Active Star t: December 27, 2024 Team Status: Active Member Role/Relationship Status Dates NISA, GUTHRIE Primary Care Provider Active Star t: [...] Provider Active Star t: December 27, 2024 KARY AriasC Attending Provider Active Start: December 27, 2024 Team Status: Active Member Role/Relationship Status Dates [place] Primary Care Provider [...] December 28, 2024 Team Status: Active Member Role/Relationship Status Dates [place] Primary Care Provider [...] December 29, 2024 Team Status: Active Member Role/Relationship Status Dates NISACLEVELAND HARRIS Primary Care Provider Active Star t: [...] 30, 2024 Dr. Goldy Warren , DO Referring Provider Active Start: December 30, 2024 Dr. Goldy Warren , DO Other Provider Active S tart: December 30, 2024 Dr. Sveta Macias , DO Other Provider Active Start : December 30, 2024 Team Status: Active Member Role/Relationship Status Dates [place] Primary Care Provider [...] December 30, 2024 Dr. Goldy Warren , Attending Provider Active Start: December 30, 2024 Dr. Goldy Warren , DO Other Provider Active S tart: December 30, 2024 Dr. Sevta Macias , DO Other Provider Active Start : December 30, 2024 Team Status: Active Member Role/Relationship Status Dates [place] Primary Care Provider [...] December 31, 2024 Team Status: Active Member Role/Relationship Status Dates NISANANCY HARRISEL Primary Care Provider Active Star t: December [...] Provider Active Start: December 31, 2024 Dr. Godly Warren , DO Other Provider Active S tart: December 31, 2024 Dr. Sveta Macias , DO Other Provider Active Start : December 31, 2024 Team Status: Active Member Role/Relationship Status Dates NISACLEVELAND HARRIS Primary Care Provider Active Star t: [...] Start : January 01, 2025 Team Status: Inactive Member Role/Relationship Status Dates [place] Younger Attending Provider Active Star t: January 14, 2025 End: January 14, 2025 [place]ISACLEVELAND HARRIS Primary Care Provider Active Star t: January 14, 2025 End: January 14, 2025 NISA, GUTHRIE Referring Provider Active Start: January 14, 2025 End: January 14, 2025 Team Status: Inactive Member Role/Relationship Status Dates Dr. Brendan Mclain MD Attending Provider Active S tart: January 14, 2025 End: January 14, 2025 Team Status: Inactive Member Role/Relationship Status Dates Dr. Marty Guthrie MD Primary Care Provider Active Start: February 11, 2025 End: February 12, 2025 Dr. Lucas Wong DO Attending Provider Active Start: February 11, 2025 End: February 12, 2025 Dr. Lucas Wong DO Emergency Provider Active Start: February 11, 2025 End: February 12, 2025 Team Status: Inactive Member Role/Relationship Status Dates Dr. Marty Guthrie MD Primary Care Provider Active Start: March 08, 2025 End: March 08, 2025 María Wasserman NP-C Attending Provider Active Start: March 08, 2025 End: March 08, 2025 Team Status: Inactive Member Role/Relationship Status Dates Dr. Marty Guthrie MD Primary Care Provider Active Start: March 08, 2025 End: March 08, 2025 Dr. Marty Guthrie MD Referring Provider Active Start: March 08, 2025 End: March 08, 2025 María Wasserman NP-C Attending Provider Active Start: March 08, 2025 End: March 08, 2025 Team Status: Inactive Member Role/Relationship Status Dates Dr. Mike Malagon MD Attending Provider Active Start: March 13, 2025 End: March 13, 2025 Dr. Marty Guthrie MD Primary Care Provider Active Start: March 13, 2025 End: March 13, 2025 Dr. Marty Guthrie MD Referring Provider Active Start: March 13, 2025 End: March 13, 2025 Team Status: Inactive Member Role/Relationship Status Dates Dr. Marty Guthrie MD Primary Care Provider Active Start: March 13, 2025 End: March 13, 2025 Dr. Brendan Mclain MD Attending Provider Active S tart: March 13, 2025 End: March 13, 2025 Team Status: Inactive Member Role/Relationship Status Dates Dr. Marty Guthrie MD Primary Care Provider Active Start: April 22, 2025 End: April 22, 2025 Dr. Brisa Gamble DO Emergency Provider Active Start: April 22, 2025 End: April 22, 2025 Insights Strategist Relationship Specialty Start Date End Date Marty Guthrie MD [address] [place], [place] [id number] PCP - General Family Medicine 09/16/24 Insights Strategist Relationship Specialty Start Date End Date Marty Guthrie MD [address] [place], [place] [id number] PCP - General Family Medicine 09/16/24 Insights Strategist Relationship Specialty Start Date End Date Marty Guthrie MD [address] [place], [place] [id number] PCP - General Family Medicine 09/16/24 Insights Strategist Relationship Specialty Start Date End Date Marty Guthrie MD [address] [place], [place] [id number] PCP - General Family Medicine 09/16/24 Team Status: Active Member Role/Relationship Status Dates Dr. Marty Guthrie MD Primary care physician Active Team Status: Inactive Member Role/Relationship Status Dates Dr. Marty Guthrie MD Primary care physician Active Start: February 11, 2025 End: February 12, 2025 Dr. Lucas Wong DO Attending physician Active Start: February 11, 2025 End: February 12, 2025 Dr. Lucas Wong DO Emergency Department Physician Active Start: February 11, 2025 End: February 12, 2025 Team Status: Inactive Member Role/Relationship Status Dates Dr. Marty Guthrei MD Primary care physician Active Start: March 08, 2025 End: March 08, 2025 María Wasserman NP-C Attending physician Active Start: March 08, 2025 End: March 08, 2025 Team Status: Inactive Member Role/Relationship Status Dates Dr. Marty Guthrie MD Primary care physician Active Start: March 08, 2025 End: March 08, 2025 Dr. Marty Guthrie MD Referring Provider Active Start: March 08, 2025 End: March 08, 2025 MORALES Todd Attending physician Active Start: March 08, 2025 End: March 08, 2025 Team Status: Inactive Member Role/Relationship Status Dates Dr. Mike Malagon MD Attending physician Active Start: March 13, 2025 End: March 13, 2025 Dr. Marty Guthrie MD Primary care physician Active Start: March 13, 2025 End: March 13, 2025 Dr. Marty Guthrie MD Referring Provider Active Start: March 13, 2025 End: March 13, 2025 Team Status: Inactive Member Role/Relationship Status Dates Dr. Marty Guthrie MD Primary care physician Active Start: March 13, 2025 End: March 13, 2025 Dr. Brendan Mclain MD Attending physician Active Start: March 13, 2025 End: March 13, 2025 Team Status: Inactive Member Role/Relationship Status Dates Dr. Marty Guthrie MD Primary care physician Active Start: April 22, 2025 End: April 22, 2025 Dr. Brisa Gamble DO Attending physician Active Start: April 22, 2025 End: April 22, 2025 Dr. Brisa Gamble DO Emergency Depart ent Physician Active Start: April 22, 2025 End: April 22, 2025 Team Status: Inactive Member Role/Relationship Status Dates Dr. Marty Guthrie MD Primary care physician Active Start: April 29, 2025 End: May 16, 2025 Dr. Keerthi Son DO Admitting physician Active Start: April End: May 16, 2025 Dr. Keerthi Son DO Attending physician Active Start: April End: May 16, 2025 Dr. Jack Plasencia MD Nurse Practitioner Active Start: April 29, 2025 End: May 16, 2025 Dr. Daniel Hall MD Nurse Practitioner Active Start: April 29, 2025 End: May 16, 2025 Team Status: Active Member Role/Relationship Status Dates Dr. Marty Guthrie MD Primary care physician Active Start: April 30, 2025 Dr. Keerthi Son DO Admitting physician Active Start: April Dr. Keerthi Son DO Nurse Practitioner Active Start: April Dr. Jack Plasencia MD Nurse Practitioner Active Start: April 30, 2025 Dr. Daniel Hall MD Nurse Practitioner Active Start: April 30, 2025 [place] Jiménez Attending physician Active Start : April 30, 2025 Team Status: Active Member Role/Relationship Status Dates Dr. Marty Guthrie MD Primary care physician Active Start: April 30, 2025 Dr. Keerthi Son DO Admitting physician Active Start: April Dr. Keerthi Son DO Attending physician Active Start: April Dr. Keerthi Son DO Nurse Practitioner Active Start: April Dr. Jack Plasencia MD Nurse Practitioner Active Start: April 30, 2025 Dr. Daniel Hall MD Nurse Practitioner Active Start: April 30, 2025 Team Status: Active Member Role/Relationship Status Dates Dr. Marty Guthrie MD Primary care physician Active Start: May 01, 2025 Dr. Keerthi Son DO Admitting physician Active Start: April Dr. Keerthi Son DO Attending physician Active Start: April Dr. Keerthi Son DO Nurse Practitioner Active Start: April Dr. Jack Plasencia MD Nurse Practitioner Active Start: May 01, 2025 Dr. Daniel Hall MD Nurse Practitioner Active Start: May 01, 2025 Team Status: Active Member Role/Relationship Status Dates Dr. Marty Guthrie MD Primary care physician Active Start: May 01, 2025 Dr. Keerthi Son DO Admitting physician Active Start: April Dr. Keerthi Son DO Nurse Practitioner Active Start: April Dr. Jack Plasencia MD Nurse Practitioner Active Start: May 01, 2025 Dr. Daniel Hall MD Nurse Practitioner Active Start: May 01, 2025 [place] Jiménez Attending physician Active Start : May 01, 2025 Team Status: Active Member Role/Relationship Status Dates Dr. Marty Guthrie MD Primary care physician Active Start: May 02, 2025 Dr. Keerthi Son DO Admitting physician Active Start: April Dr. Keerthi Son DO Attending physician Active Start: April Dr. Keerthi Son DO Nurse Practitioner Active Start: April Dr. Jack Plasencia MD Nurse Practitioner Active Start: May 02, 2025 Dr. Daniel Hall MD Nurse Practitioner Active Start: May 02, 2025 Team Status: Active Member Role/Relationship Status Dates Dr. Marty Guthrie MD Primary care physician Active Start: May 02, 2025 Dr. Keerthi Son DO Admitting physician Active Start: April Dr. Keerthi Son DO Nurse Practitioner Active Start: April Dr. Jack Plasencia MD Nurse Practitioner Active Start: May 02, 2025 Dr. Daniel Hall MD Nurse Practitioner Active Start: May 02, 2025 [place] Jiménez Attending physician Active Start : May 02, 2025 Team Status: Active Member Role/Relationship Status Dates Dr. Marty Guthrie MD Primary care physician Active Start: May 05, 2025 Dr. Keerthi Son DO Admitting physician Active Start: April Dr. Keerthi Son DO Attending physician Active Start: April Dr. Keerthi Son DO Nurse Practitioner Active Start: April Dr. Jack Plasencia MD Nurse Practitioner Active Start: May 05, 2025 Dr. Daniel Hall MD Nurse Practitioner Active Start: May 05, 2025 Team Status: Active Member Role/Relationship Status Dates Dr. Marty Guthrie MD Primary care physician Active Start: May 06, 2025 Dr. Keerthi Son DO Admitting physician Active Start: April Dr. Keerthi Son DO Attending physician Active Start: April Dr. Keerthi Son DO Nurse Practitioner Active Start: April Dr. Jack Plasencia MD Nurse Practitioner Active Start: May 06, 2025 Dr. Daniel Hall MD Nurse Practitioner Active Start: May 06, 2025 Team Status: Active Member Role/Relationship Status Dates Dr. Marty Guthrie MD Primary care physician Active Start: May 06, 2025 Dr. Keerthi Son DO Admitting physician Active Start: April Dr. eKerthi Son DO Nurse Practitioner Active Start: April Dr. Jack Plasencia MD Nurse Practitioner Active Start: May 06, 2025 Dr. Daniel Hall MD Nurse Practitioner Active Start: May 06, 2025 [place] Jim[place] Attending physician Active Start : May 06, 2025 Team Status: Active Member Role/Relationship Status Dates Dr. Marty Guthrie MD Primary care physician Active Start: May 08, 2025 Dr. Keerthi Son DO Admitting physician Active Start: April Dr. Keerthi Son DO Attending physician Active Start: April Dr. Keerthi Son DO Nurse Practitioner Active Start: April Dr. Jack Plasencia MD Nurse Practitioner Active Start: May 08, 2025 Dr. Daniel Hall MD Nurse Practitioner Active Start: May 08, 2025 Team Status: Active Member Role/Relationship Status Dates Dr. Marty Guthrie MD Primary care physician Active Start: May 09, 2025 Dr. Keerthi Son DO Admitting physician Active Start: April Dr. Keerthi Son DO Attending physician Active Start: April Dr. Keerthi Son DO Nurse Practitioner Active Start: April Dr. Jack Plasencia MD Nurse Practitioner Active Start: May 09, 2025 Dr. Daniel Hall MD Nurse Practitioner Active Start: May 09, 2025 Team Status: Active Member Role/Relationship Status Dates Dr. Marty Guthrie MD Primary care physician Active Start: May 12, 2025 Dr. Keerthi Son DO Admitting physician Active Start: April Dr. Keerthi Son DO Attending physician Active Start: April Dr. Keerthi Son DO Nurse Practitioner Active Start: April Dr. Jack Plasencia MD Nurse Practitioner Active Start: May 12, 2025 Dr. Daniel Hall MD Nurse Practitioner Active Start: May 12, 2025 Team Status: Active Member Role/Relationship Status Dates Dr. Marty Guthrie MD Primary care physician Active Start: May 13, 2025 Dr. Keerthi Son DO Admitting physician Active Start: April Dr. Keerthi Son DO Attending physician Active Start: April Dr. Keerthi Son DO Nurse Practitioner Active Start: April Dr. Jack Plasencia MD Nurse Practitioner Active Start: May 13, 2025 Dr. Daniel Hall MD Nurse Practitioner Active Start: May 13, 2025 Team Status: Active Member Role/Relationship Status Dates Dr. Marty Guthrie MD Primary care physician Active Start: May 13, 2025 Dr. Keerthi Son DO Admitting physician Active Start: April Dr. Keerthi Son DO Nurse Practitioner Active Start: April Dr. Jack Plasencia MD Nurse Practitioner Active Start: May 13, 2025 Dr. Daniel Hall MD Nurse Practitioner Active Start: May 13, 2025 [place] Jimé[place] Attending physician Active Start : May 13, 2025 Team Status: Active Member Role/Relationship Status Dates Dr. Marty Guthrie MD Primary care physician Active Start: May 14, 2025 Dr. Keerthi Son DO Admitting physician Active Start: April Dr. Keerthi Son DO Attending physician Active Start: April Dr. Keerthi Son DO Nurse Practitioner Active Start: April Dr. Jack Plasencia MD Nurse Practitioner Active Start: May 14, 2025 Dr. Daniel Hall MD Nurse Practitioner Active Start: May 14, 2025 Team Status: Active Member Role/Relationship Status Dates Dr. Marty Guthrie MD Primary care physician Active Start: May 15, 2025 Dr. Keerthi Son DO Admitting physician Active Start: April Dr. Keerthi Son DO Attending physician Active Start: April Dr. Keerthi Son DO Nurse Practitioner Active Start: April Dr. Jack Plasencia MD Nurse Practitioner Active Start: May 15, 2025 Dr. Daniel Hall MD Nurse Practitioner Active Start: May 15, 2025 Team Status: Inactive Member Role/Relationship Status Dates Dr. Marty Guthrie MD Primary care physician Active Start: May 19, 2025 End: May 20, 2025 Dr. Jack Plasencia MD Attending physician Active Start: May 19, 2025 End: May 20, 2025 Dr. Keerthi Son DO Referring Provider Active Start: April End: May 20, 2025 Team Status: Active Member Role/Relationship Status Dates Dr. Marty Guthrie MD Primary care physician Active Start: May 21, 2025 Dr. Jack Plasencia MD Attending physician Active Start: May 21, 2025 Dr. Jack Plasencia MD Nurse Practitioner Active Start: May 21, 2025 Dr. Keerthi Son DO Referring Provider Active Start: May 21, 2025 Source Comments (unrecognize d section and content) In the event this informatio n is protected by the Federal Confidentiality of Alcohol and Drug Abuse Patient Records regulations: The Federal rules restrict any use of the information to criminally investigate or prosecute any alcohol or drug abuse patient.[facility] RehabilitationIn the event this information is protected by the Federal Confidentiality of Alcohol and Drug Abuse Patient Records regulations: The Federal rules restrict any use of the information to criminally investigate or prosecute any alcohol or drug abuse patient.[facility] RehabilitationIn the event this information is protected by the Federal Confidentiality of Alcohol and Drug Abuse Patient Records regulations: The Federal rules restrict any use of the information to criminally investigate or prosecute any alcohol or drug abuse patient.[facility] RehabilitationIn the event this information is protected by the Federal Confidentiality of Alcohol and Drug Abuse Patient Records regulations: The Federal rules restrict any use of the information to criminally investigate or prosecute any alcohol or drug abuse patient.[facility] RehabilitationIn the event this information is protected by the Federal Confidentiality of Alcohol and Drug Abuse Patient Records regulations: The Federal rules restrict any use of the information to criminally investigate or prosecute any alcohol or drug abuse patient.[facility] RehabilitationIn the event this information is protected by the Federal Confidentiality of Alcohol and Drug Abuse Patient Records regulations: The Federal rules restrict any use of the information to criminally investigate or prosecute any alcohol or drug abuse patient.[facility] RehabilitationIn the event this information is protected by the Federal Confidentiality of Alcohol and Drug Abuse Patient Records regulations: The Federal rules restrict any use of the information to criminally investigate or prosecute any alcohol or drug abuse patient.[facility] RehabilitationIn the event this information is protected by the Federal Confidentiality of Alcohol and Drug Abuse Patient Records regulations: The Federal rules restrict any use of the information to criminally investigate or prosecute any alcohol or drug abuse patient.[facility] RehabilitationIn the event this information is protected by the Federal Confidentiality of Alcohol and Drug Abuse Patient Records regulations: The Federal rules restrict any use of the information to criminally investigate or prosecute any alcohol or drug abuse patient.[facility] RehabilitationIn the event this information is protected by the Federal Confidentiality of Alcohol and Drug Abuse Patient Records regulations: The Federal rules restrict any use of the information to criminally investigate or prosecute any alcohol or drug abuse patient.[facility] RehabilitationIn the event this information is protected by the Federal Confidentiality of Alcohol and Drug Abuse Patient Records regulations: The Federal rules restrict any use of the information to criminally investigate or prosecute any alcohol or drug abuse patient.[facility] RehabilitationIn the event this information is protected by the Federal Confidentiality of Alcohol and Drug Abuse Patient Records regulations: The Federal rules restrict any use of the information to criminally investigate or prosecute any alcohol or drug abuse patient.[facility] RehabilitationIn the event this information is protected by the Federal Confidentiality of Alcohol and Drug Abuse Patient Records regulations: The Federal rules restrict any use of the information to criminally investigate or prosecute any alcohol or drug abuse patient.[facility] RehabilitationIn the event this information is protected by the Federal Confidentiality of Alcohol and Drug Abuse Patient Records regulations: The Federal rules restrict any use of the information to criminally investigate or prosecute any alcohol or drug abuse patient.[facility] RehabilitationIn the event this information is protected by the Federal Confidentiality of Alcohol and Drug Abuse Patient Records regulations: The Federal rules restrict any use of the information to criminally investigate or prosecute any alcohol or drug abuse patient.[facility] RehabilitationIn the event this information is protected by the Federal Confidentiality of Alcohol and Drug Abuse Patient Records regulations: The Federal rules restrict any use of the information to criminally investigate or prosecute any alcohol or drug abuse patient.[facility] RehabilitationIn the event this information is protected by the Federal Confidentiality of Alcohol and Drug Abuse Patient Records regulations: The Federal rules restrict any use of the information to criminally investigate or prosecute any alcohol or drug abuse patient.[facility] RehabilitationIn the event this information is protected by the Federal Confidentiality of Alcohol and Drug Abuse Patient Records regulations: The Federal rules restrict any use of the information to criminally investigate or prosecute any alcohol or drug abuse patient.[facility] RehabilitationIn the event this information is protected by the Federal Confidentiality of Alcohol and Drug Abuse Patient Records regulations: The Federal rules restrict any use of the information to criminally investigate or prosecute any alcohol or drug abuse patient.[facility] RehabilitationIn the event this information is protected by the Federal Confidentiality of Alcohol and Drug Abuse Patient Records regulations: The Federal rules restrict any use of the information to criminally investigate or prosecute any alcohol or drug abuse patient.[facility] RehabilitationIn the event this information is protected by the Federal Confidentiality of Alcohol and Drug Abuse Patient Records regulations: The Federal rules restrict any use of the information to criminally investigate or prosecute any alcohol or drug abuse patient.[facility] RehabilitationIn the event this information is protected by the Federal Confidentiality of Alcohol and Drug Abuse Patient Records regulations: The Federal rules restrict any use of the information to criminally investigate or prosecute any alcohol or drug abuse patient.[facility] RehabilitationIn the event this information is protected by the Federal Confidentiality of Alcohol and Drug Abuse Patient Records regulations: The Federal rules restrict any use of the information to criminally investigate or prosecute any alcohol or drug abuse patient.[facility] RehabilitationIn the event this information is protected by the Federal Confidentiality of Alcohol and Drug Abuse Patient Records regulations: The Federal rules restrict any use of the information to criminally investigate or prosecute any alcohol or drug abuse patient.[facility] RehabilitationIn the event this information is protected by the Federal Confidentiality of Alcohol and Drug Abuse Patient Records regulations: The Federal rules restrict any use of the information to criminally investigate or prosecute any alcohol or drug abuse patient.[facility] RehabilitationIn the event this information is protected by the Federal Confidentiality of Alcohol and Drug Abuse Patient Records regulations: The Federal rules restrict any use of the information to criminally investigate or prosecute any alcohol or drug abuse patient.[facility] RehabilitationIn the event this information is protected by the Federal Confidentiality of Alcohol and Drug Abuse Patient Records regulations: The Federal rules restrict any use of the information to criminally investigate or prosecute any alcohol or drug abuse patient.[facility] RehabilitationIn the event this information is protected by the Federal Confidentiality of Alcohol and Drug Abuse Patient Records regulations: The Federal rules restrict any use of the information to criminally investigate or prosecute any alcohol or drug abuse patient.[facility] RehabilitationIn the event this information is protected by the Federal Confidentiality of Alcohol and Drug Abuse Patient Records regulations: The Federal rules restrict any use of the information to criminally investigate or prosecute any alcohol or drug abuse patient.[facility] RehabilitationIn the event this information is protected by the Federal Confidentiality of Alcohol and Drug Abuse Patient Records regulations: The Federal rules restrict any use of the information to criminally investigate or prosecute any alcohol or drug abuse patient.[facility] the event this information is protected by the Federal Confidentiality of Alcohol and Drug Abuse Patient Records regulations: The Federal rules restrict any use of the information to criminally investigate or prosecute any alcohol or drug abuse patient.[facility] RehabilitationIn the event this information is protected by the Federal Confidentiality of Alcohol and Drug Abuse Patient Records regulations: The Federal rules restrict any use of the information to criminally investigate or prosecute any alcohol or drug abuse patient.[facility] RehabilitationIn the event this information is protected by the Federal Confidentiality of Alcohol and Drug Abuse Patient Records regulations: The Federal rules restrict any use of the information to criminally investigate or prosecute any alcohol or drug abuse patient.[facility] the event this information is protected by the Federal Confidentiality of Alcohol and Drug Abuse Patient Records regulations: The Federal rules restrict any use of the information to criminally investigate or prosecute any alcohol or drug abuse patient.[facility] RehabilitationIn the event this information is protected by the Federal Confidentiality of Alcohol and Drug Abuse Patient Records regulations: The Federal rules restrict any use of the information to criminally investigate or prosecute any alcohol or drug abuse patient.[facility] RehabilitationIn the event this information is protected by the Federal Confidentiality of Alcohol and Drug Abuse Patient Records regulations: The Federal rules restrict any use of the information to criminally investigate or prosecute any alcohol or drug abuse patient.[facility] RehabilitationIn the event this information is protected by the Federal Confidentiality of Alcohol and Drug Abuse Patient Records regulations: The Federal rules restrict any use of the information to criminally investigate or prosecute any alcohol or drug abuse patient.[facility] RehabilitationIn the event this information is protected by the Federal Confidentiality of Alcohol and Drug Abuse Patient Records regulations: The Federal rules restrict any use of the information to criminally investigate or prosecute any alcohol or drug abuse patient.[facility] RehabilitationIn the event this information is protected by the Federal Confidentiality of Alcohol and Drug Abuse Patient Records regulations: The Federal rules restrict any use of the information to criminally investigate or prosecute any alcohol or drug abuse patient.[facility] RehabilitationIn the event this information is protected by the Federal Confidentiality of Alcohol and Drug Abuse Patient Records regulations: The Federal rules restrict any use of the information to criminally investigate or prosecute any alcohol or drug abuse patient.[facility] RehabilitationIn the event this information is protected by the Federal Confidentiality of Alcohol and Drug Abuse Patient Records regulations: The Federal rules restrict any use of the information to criminally investigate or prosecute any alcohol or drug abuse patient.[facility] RehabilitationIn the event this information is protected by the Federal Confidentiality of Alcohol and Drug Abuse Patient Records regulations: The Federal rules restrict any use of the information to criminally investigate or prosecute any alcohol or drug abuse patient.[facility] RehabilitationIn the event this information is protected by the Federal Confidentiality of Alcohol and Drug Abuse Patient Records regulations: The Federal rules restrict any use of the information to criminally investigate or prosecute any alcohol or drug abuse patient.[facility] RehabilitationIn the event this information is protected by the Federal Confidentiality of Alcohol and Drug Abuse Patient Records regulations: The Federal rules restrict any use of the information to criminally investigate or prosecute any alcohol or drug abuse patient.[facility] RehabilitationIn the event this information is protected by the Federal Confidentiality of Alcohol and Drug Abuse Patient Records regulations: The Federal rules restrict any use of the information to criminally investigate or prosecute any alcohol or drug abuse patient.[facility] RehabilitationIn the event this information is protected by the Federal Confidentiality of Alcohol and Drug Abuse Patient Records regulations: The Federal rules restrict any use of the information to criminally investigate or prosecute any alcohol or drug abuse patient.[facility] RehabilitationIn the event this information is protected by the Federal Confidentiality of Alcohol and Drug Abuse Patient Records regulations: The Federal rules restrict any use of the information to criminally investigate or prosecute any alcohol or drug abuse patient.[facility] RehabilitationIn the event this information is protected by the Federal Confidentiality of Alcohol and Drug Abuse Patient Records regulations: The Federal rules restrict any use of the information to criminally investigate or prosecute any alcohol or drug abuse patient.[facility] RehabilitationIn the event this information is protected by the Federal Confidentiality of Alcohol and Drug Abuse Patient Records regulations: The Federal rules restrict any use of the information to criminally investigate or prosecute any alcohol or drug abuse patient.[facility] RehabilitationIn the event this information is protected by the Federal Confidentiality of Alcohol and Drug Abuse Patient Records regulations: The Federal rules restrict any use of the information to criminally investigate or prosecute any alcohol or drug abuse patient.[facility] RehabilitationIn the event this information is protected by the Federal Confidentiality of Alcohol and Drug Abuse Patient Records regulations: The Federal rules restrict any use of the information to criminally investigate or prosecute any alcohol or drug abuse patient.[facility] RehabilitationIn the event this information is protected by the Federal Confidentiality of Alcohol and Drug Abuse Patient Records regulations: The Federal rules restrict any use of the information to criminally investigate or prosecute any alcohol or drug abuse patient.[facility] RehabilitationIn the event this information is protected by the Federal Confidentiality of Alcohol and Drug Abuse Patient Records regulations: The Federal rules restrict any use of the information to criminally investigate or prosecute any alcohol or drug abuse patient.[facility] RehabilitationIn the event this information is protected by the Federal Confidentiality of Alcohol and Drug Abuse Patient Records regulations: The Federal rules restrict any use of the information to criminally investigate or prosecute any alcohol or drug abuse patient.[facility] RehabilitationIn the event this information is protected by the Federal Confidentiality of Alcohol and Drug Abuse Patient Records regulations: The Federal rules restrict any use of the information to criminally investigate or prosecute any alcohol or drug abuse patient.[facility] RehabilitationIn the event this information is protected by the Federal Confidentiality of Alcohol and Drug Abuse Patient Records regulations: The Federal rules restrict any use of the information to criminally investigate or prosecute any alcohol or drug abuse patient.[facility] RehabilitationIn the event this information is protected by the Federal Confidentiality of Alcohol and Drug Abuse Patient Records regulations: The Federal rules restrict any use of the information to criminally investigate or prosecute any alcohol or drug abuse patient.[facility] RehabilitationIn the event this information is protected by the Federal Confidentiality of Alcohol and Drug Abuse Patient Records regulations: The Federal rules restrict any use of the information to criminally investigate or prosecute any alcohol or drug abuse patient.[facility] RehabilitationIn the event this information is protected by the Federal Confidentiality of Alcohol and Drug Abuse Patient Records regulations: The Federal rules restrict any use of the information to criminally investigate or prosecute any alcohol or drug abuse patient.[facility] RehabilitationIn the event this information is protected by the Federal Confidentiality of Alcohol and Drug Abuse Patient Records regulations: The Federal rules restrict any use of the information to criminally investigate or prosecute any alcohol or drug abuse patient.[facility] RehabilitationIn the event this information is protected by the Federal Confidentiality of Alcohol and Drug Abuse Patient Records regulations: The Federal rules restrict any use of the information to criminally investigate or prosecute any alcohol or drug abuse patient.[facility] RehabilitationIn the event this information is protected by the Federal Confidentiality of Alcohol and Drug Abuse Patient Records regulations: The Federal rules restrict any use of the information to criminally investigate or prosecute any alcohol or drug abuse patient.[facility] RehabilitationIn the event this information is protected by the Federal Confidentiality of Alcohol and Drug Abuse Patient Records regulations: The Federal rules restrict any use of the information to criminally investigate or prosecute any alcohol or drug abuse patient.[facility] RehabilitationIn the event this information is protected by the Federal Confidentiality of Alcohol and Drug Abuse Patient Records regulations: The Federal rules restrict any use of the information to criminally investigate or prosecute any alcohol or drug abuse patient.[facility] RehabilitationIn the event this information is protected by the Federal Confidentiality of Alcohol and Drug Abuse Patient Records regulations: The Federal rules restrict any use of the information to criminally investigate or prosecute any alcohol or drug abuse patient.[facility] RehabilitationIn the event this information is protected by the Federal Confidentiality of Alcohol and Drug Abuse Patient Records regulations: The Federal rules restrict any use of the information to criminally investigate or prosecute any alcohol or drug abuse patient.[facility] RehabilitationIn the event this information is protected by the Federal Confidentiality of Alcohol and Drug Abuse Patient Records regulations: The Federal rules restrict any use of the information to criminally investigate or prosecute any alcohol or drug abuse patient.[facility] RehabilitationIn the event this information is protected by the Federal Confidentiality of Alcohol and Drug Abuse Patient Records regulations: The Federal rules restrict any use of the information to criminally investigate or prosecute any alcohol or drug abuse patient.[facility] RehabilitationIn the event this information is protected by the Federal Confidentiality of Alcohol and Drug Abuse Patient Records regulations: The Federal rules restrict any use of the information to criminally investigate or prosecute any alcohol or drug abuse patient.[facility] RehabilitationIn the event this information is protected by the Federal Confidentiality of Alcohol and Drug Abuse Patient Records regulations: The Federal rules restrict any use of the information to criminally investigate or prosecute any alcohol or drug abuse patient.[facility] RehabilitationIn the event this information is protected by the Federal Confidentiality of Alcohol and Drug Abuse Patient Records regulations: The Federal rules restrict any use of the information to criminally investigate or prosecute any alcohol or drug abuse patient.[facility] RehabilitationIn the event this information is protected by the Federal Confidentiality of Alcohol and Drug Abuse Patient Records regulations: The Federal rules restrict any use of the information to criminally investigate or prosecute any alcohol or drug abuse patient.[facility] RehabilitationIn the event this information is protected by the Federal Confidentiality of Alcohol and Drug Abuse Patient Records regulations: The Federal rules restrict any use of the information to criminally investigate or prosecute any alcohol or drug abuse patient.[facility] RehabilitationIn the event this information is protected by the Federal Confidentiality of Alcohol and Drug Abuse Patient Records regulations: The Federal rules restrict any use of the information to criminally investigate or prosecute any alcohol or drug abuse patient.[facility] RehabilitationIn the event this information is protected by the Federal Confidentiality of Alcohol and Drug Abuse Patient Records regulations: The Federal rules restrict any use of the information to criminally investigate or prosecute any alcohol or drug abuse patient.[facility] RehabilitationIn the event this information is protected by the Federal Confidentiality of Alcohol and Drug Abuse Patient Records regulations: The Federal rules restrict any use of the information to criminally investigate or prosecute any alcohol or drug abuse patient.[facility] RehabilitationIn the event this information is protected by the Federal Confidentiality of Alcohol and Drug Abuse Patient Records regulations: The Federal rules restrict any use of the information to criminally investigate or prosecute any alcohol or drug abuse patient.[facility] RehabilitationIn the event this information is protected by the Federal Confidentiality of Alcohol and Drug Abuse Patient Records regulations: The Federal rules restrict any use of the information to criminally investigate or prosecute any alcohol or drug abuse patient.[facility] RehabilitationIn the event this information is protected by the Federal Confidentiality of Alcohol and Drug Abuse Patient Records regulations: The Federal rules restrict any use of the information to criminally investigate or prosecute any alcohol or drug abuse patient.[facility] RehabilitationIn the event this information is protected by the Federal Confidentiality of Alcohol and Drug Abuse Patient Records regulations: The Federal rules restrict any use of the information to criminally investigate or prosecute any alcohol or drug abuse patient.[facility] RehabilitationIn the event this information is protected by the Federal Confidentiality of Alcohol and Drug Abuse Patient Records regulations: The Federal rules restrict any use of the information to criminally investigate or prosecute any alcohol or drug abuse patient.[facility] RehabilitationIn the event this information is protected by the Federal Confidentiality of Alcohol and Drug Abuse Patient Records regulations: The Federal rules restrict any use of the information to criminally investigate or prosecute any alcohol or drug abuse patient.[facility] RehabilitationIn the event this information is protected by the Federal Confidentiality of Alcohol and Drug Abuse Patient Records regulations: The Federal rules restrict any use of the information to criminally investigate or prosecute any alcohol or drug abuse patient.[facility] Scheduled Active and Recently Administ ered Medications (unrecognized section and content) Medication Order 06/05/2024 06/06/2024 06/07/2024 cyclobenzaprine (Flexeril) tablet 5 mg (COMPLETED) 5 mg, Oral, Once, On Mon06/07/24 at 1840, For 1 dose 184 (Given - Provid er: Yamila Sanchez, RN) ketorolac (Toradol) injection 30 mg (COMPLETED) 30 mg, IntraMUSCular, Once, On Mon06/07/24 at 1840, For 1 dose 184 (Given - Provid er: Yamila Sanchez, LISA) Scheduled Medication Order 04/27/2025 04/28/2025 04/29/2025 acetaminophen (Tylenol) tablet 1,000 mg 1,000 mg, Oral, Every 8 hours, First dose on Mon04/23/25 at 0215, Maximum dose of acetaminophen is 4000 mg from all sources in 24 hours. 0912 (Given - Provider: Evelin Vines RN - Comment: Patient was asleep, when woke, asked for this to be moved so she could go back to sleep 04/27/25 MR)1300 (Not Given - Provider: Evelin Vines RN - Reason: See Provider Order - Comment: time changed)1743 (Given - Provider: Evelin Vines RN) 0228 (Not Given - Provider: Saskia Bess RN - Reason: Patient/family refused)0819 (Given - Provider: Juliet Black, LISA)1813 (Given - Provider: Juliet Black, LISA) 0316 (Given - Provider: Kristy Contreras, LISA)1152 (Given - Provider: Nati Gordon, LISA) atenolol (Tenormin) tablet 25 mg 25 mg, Oral, Daily, First dose on Mon04/23/25 at 0900, HOLD for SBP<100 or HR<60 09 (Given - Provider: Evelin Vines RN) 0819 (Given - Provider: Juliet Black, LISA) 0919 (Given - Provider: Nati Gordon, LISA) baclofen (Lioresal) tablet 5 mg 5 mg, Oral, Nightly, First dose (after last modification) on Mon04/23/25 at 2100 2017 (Given - Provider: Saskia Bess RN) 2055 (Given - Provider: Kristy Contreras, RN) buprenorphine (Butrans) 5 MCG/HR 5 mcg 5 mcg, TransDERmal, Administer over 168 Hours, Weekly, First dose on Kayleigh 04/24/25 at 0900, Do not cut patch. Rotate Butrans application site weekly, applying to upper outer arm, upper chest, upper back, or side of chest. Do not reapply to same site within 3 weeks. May use first aid tape or semipermeable adhesive dressings to re-adhere if patch begins to pull away from skin. When removing, fold adhesive side of patch to itself before disposing, or per policy. 1644 (Due: Medicatio n Removed - Provider: Automatic Discharge Provider - Comment: Time automatically adjusted from order being discontinued) ceFAZolin (Ancef) 1,000 mg in sodium chloride 0.9 % 50 mL IVPB (CANCELED) 1,000 mg, IntraVENous, at 100 mL/hr, Administer over 30 Minutes, Every 8 hours, First dose on Kayleigh 04/24/25 at 1800, Mini-Bag Plus bag, Suspected Indication (Select all that apply): Urinary Tract Infection 0604 (New Bag - Provider: Ana Wynne RN)0635 (Stopped - Provider: Ana Wynne RN)1358 (New Bag - Provider: Evelin Vines RN)1428 (Stopped - Provider: Evelin Vines RN)2317 (New Bag - Provider: Saskia Bess RN) 0006 (Stopped - Provider: Saskia Bess RN)0612 (New Bag - Provider: Saskia Bess RN)0638 (Stopped - Provider: Saskia Bess RN)1427 (New Bag - Provider: Juliet Black, RN)1540 (Stopped - Provider: Juliet Black, RN)2248 (New Bag - Provider: Kristy Contreras, RN)2318 (Stopped - Provider: Kristy Contreras, RN) 0620 (New Bag - Provider: Kristy Contreras, RN)0703 (Stopped - Provider: Kristy Contreras, RN) cholecalciferol (Vitamin D-3) tablet 2,000 Units 2,000 Units, Oral, Daily, First dose on Mon04/23/25 at 0900 0905 (Given - Provider: Evelin Vines RN) 0819 (Given - Provider: Juliet Black RN) 918 (Given - Provider: Nati Gordon, LISA) docusate sodium (Colace) capsule 100 mg 100 mg, Oral, 2 times daily, First dose on Mon04/26/25 at 0900, Do not crush or break. 0907 (Given - Provider: Evelin Vines RN)2017 (Given - Provider: Saskia Bess RN) 08 (Given - Provider: Juliet Black RN)2044 (Given - Provider: Kristy Contreras, LISA) 919 (Given - Provider: Nati Gordon, LISA) enoxaparin (Lovenox) syringe 30 mg 30 mg, SubCUTAneous, Every 12 hours, First dose on Mon04/25/25 at 2100, Indication of Use: Prophylaxis-DVT/PE, Indications: Prophylaxis of Venous Thromboembolism 09 (Given - Provider: Evelin Vines RN)2016 (Given - Provider: Saskia Bess RN) 08 (Given - Provider: Juliet Black, LISA)2044 (Given - Provider: Kristy Contreras, LISA) 918 (Given - Provider: Nati Gordon, LISA) famotidine (Pepcid) tablet 20 mg 20 mg, Oral, Daily, First dose on Mon04/23/25 at 0800 0906 (Given - Provider: Evelin Vines RN) 08 (Given - Provider: Juliet Black RN) 09 (Given - Provider: Nati Gordon, LISA) furosemide (Lasix) injection 20 mg (COMPLETED) 20 mg, IntraVENous, Once, On Mon04/27/25 at 1200, For 1 dose 1239 (Given - Provider: Evelin Vines RN) furosemide (Lasix) tablet 20 mg 20 mg, Oral, Daily, First dose on Mon04/28/25 at 1130 1404 (Given - Provider: Juliet Black RN) 0919 (Given - Provider: Nati Gordon, LISA) gabapentin (Neurontin) capsule 100 mg 100 mg, Oral, Every 12 hours, First dose (after last modification) on Mon04/23/25 at 2100 0907 (Given - Provider: Evelin Vines RN)2016 (Given - Provider: Saskia Bess RN) 08 (Given - Provider: Juliet Black RN)2044 (Given - Provider: Kristy Contreras, RN) 918 (Given - Provider: Nati Gordon, RN) ipratropium-albuterol (Duo-Neb) 0.5-2.5 mg/3 mL nebulizer solution 3 mL 3 mL, Nebulization, Every 12 hours scheduled (2 times per day), First dose (after last modification) on 04/26/25 at 2100 0701 (Given - Provider: Laura Smith RCP)1709 (Given - Provider: Teagan Ruelas RCP) 0815 (Given - Provider: Kevin Cheney, ENVELOPE ADDRESSER)2145 (Given - Provider: Nieves Beavers ENVELOPE ADDRESSER) 1209 (Given - Provider: Logan Erazo RCP) mometasone-formoterol (Dulera 100) 100-5 MCG/ACT inhaler 2 puff 2 puff, Inhalation, 2 times daily, First dose on Mon04/23/25 at 0800, Administer using an inhaler spacer. Rinse mouth with water after use to reduce aftertaste and incidence of candidiasis. Do not swallow. 09 (Given - Provider: Evelin Vines RN)2017 (Given - Provider: Saskia Bess RN) 08 (Given - Provider: Juliet Black, LISA)2044 (Given - Provider: Kristy Contreras, LISA) 919 (Given - Provider: Nati Gordon, LISA) polyethylene glycol (PEG) 3350 (Miralax) packet 17 g 17 g, Oral, 2 times daily, First dose (after last modification) on 04/26/25 at 2100, 1st line for treatment of constipation - give scheduled if no bowel movement in past 24 hours. 0902 (Given - Provider: Evelin Vines RN)2016 (Given - Provider: Saskia Bess, LISA) 817 (Given - Provider: Juliet Black, LISA)2100 (Not Given - Provider: Kristy Contreras, LISA - Reason: Patient/family refused) 0918 (Not Given - Provider: Nati Gordon RN - Reason: Patient/family refused) sennosides (Senokot) tablet 17.2 mg 17.2 mg (2 tablet), Oral, 2 times daily, First dose on Mon04/23/25 at 0900 0907 (Given - Provider: Evelin Vines RN)2017 (Given - Provider: Saskia Bess RN) 0818 (Given - Provider: Juliet Black RN)2044 (Given - Provider: Kristy Contreras, LISA) 0919 (Given - Provider: Nati Gordon, LISA) sodium chloride 0.9% (NS) flush 30 mL 30 mL, IntraVENous, Every 6 hours, First dose on Mon04/23/25 at 0215 0027 (Given - Provider: Ana Wynne RN)0559 (Given - Provider: Ana Wynne RN)1205 (Given - Provider: Evelin Vines RN)1746 (Given - Provider: Evelin Vines RN) 0007 (Not Given - Provider: Saskia Bess RN - Reason: Other - Comment: Flushed after IV antibiotics were finished)0613 (Given - Provider: Saskia Bess RN)1200 (Given - Provider: Juliet Black RN)1813 (Given - Provider: Juliet Black RN)2300 (Given - Provider: Kristy Contreras, LISA) 0623 (Given - Provider: Kristy Contreras, LISA)1151 (Not Given - Provider: Nati Gordon RN - Reason: Other)1800 (Canceled Entry - Provider: Automatic Discharge Provider - Comment: Automatically canceled at discontinue of medication order) sodium chloride 3 % hypertonic nebulizer solution 4 mL 4 mL, Nebulization, Every 12 hours, First dose on Mon04/23/25 at 0900 0702 (Given - Provider: Laura Smith RCP)1709 (Given - Provider: Teagan Ruelas RCP) 0823 (Given - Provider: Kevin Cheney, IWONA)2145 (Given - Provider: Nieves Beavers, IWONA) 1209 (Given - Provider: Logan Erazo RCP) tiotropium (Spiriva Respimat) 2.5 MCG/ACT inhaler 2 puff 2 puff, Inhalation, Daily, First dose on Mon04/23/25 at 0900, Instruct to hold breath for 10 seconds after each inhalation. Before first use, prime inhaler by actuating until aerosal cloud is seen, then actuating 3 more times. Administer using an inhaler spacer. 902 (Given - Provider: Evelin Vines RN) 817 (Given - Provider: Juliet Black RN) 918 (Given - Provider: Nati Gordon RN) PRN Medication Order 04/27/2025 04/28/2025 04/29/2025 dextrose 5 % infusion 100 mL/hr, IntraVENous, PRN, Blood sugar less than 70mg/dL, Starting on Mon04/23/25 at 0159, Start infusion following administration of dextrose 50% or glucagon. dextrose 50 % solution 12.5 g 12.5 g, IntraVENous, PRN, low blood sugar, Blood glucose less than 70 mg/dL and patient NOT ALERT or NPO., Starting on Mon04/23/25 at 0159, If patient does not respond within 5 minutes, repeat dose x1. Start D5W at 100 mL/hour until ordering provider can be reached. Repeat blood glucose in 15 minutes. If blood glucose is less than 70 mg/dL, repeat treatment and recheck blood glucose in 15 minutes x2. If using Glucostabilizer, dose as instructed per system. glucagon (human recombinant) injection 1 mg 1 mg, IntraMUSCular, PRN, low blood sugar, Blood glucose less than 70 mg/dL and patient NOT ALERT or NPO and does not have IV access., Starting on Mon04/23/25 at 0159, After administration, attempt intravenous access and start D5W at 100 mL/hr. Repeat blood glucose in 15 minutes x2 and notify provider. ipratropium-albuterol (Duo-Neb) 0.5-2.5 mg/3 mL nebulizer solution 3 mL 3 mL, Nebulization, Every 2 hour PRN, wheezing, Starting on Mon04/23/25 at 0734, For Bronchospasm. Consider with ACCUPAP/ESPAP if indicated. melatonin tablet 3 mg 3 mg, Oral, Nightly PRN, sleep, Starting on Mon04/23/25 at 1352 naloxone (Narcan) injection 0.4 mg 0.4 mg, IntraVENous, PRN, opioid reversal, Starting on Mon04/23/25 at 0201, For oversedation/difficult to rouse, pinpoint pupils, RR < 8; notify primary team office 365 consultant if used ondansetron (Zofran) injection 4 mg(Linked Group 1) 4 mg, IntraVENous, Every 6 hours PRN, nausea, vomiting, Starting on Mon04/23/25 at 0153, 1st Line. Give IV if patient is unable to take orally. If inadequate response within 60 minutes, proceed to next-line agent or contact provider if no further options ordered. ondansetron ODT (Zofran-ODT) disintegrating tablet 4 mg(Linked Group 1) 4 mg, Oral, Every 8 hours PRN, nausea, vomiting, Starting on Mon04/23/25 at 0153, 1st Line. If inadequate response within 60 minutes, proceed to next-line agent or contact provider if no further options ordered. Patient should allow tablet to dissolve on tongue. Do not remove from blister pack until just before administering. oxyCODONE (Roxicodone) immediate release tablet 2.5 mg(Linked Group 2) 2.5 mg, Oral, Every 4 hours PRN, moderate pain (4-6), Starting on Mon04/25/25 at 0902 0743 (See Alternative - Provider: Evelin Vines RN)1238 (See Alternative - Provider: Evelin Vines RN)2017 (See Alternative - Provider: Saskia Bess RN) 0820 (See Alternative - Provider: Juliet Black RN)1404 (See Alternative - Provider: Juliet Black RN)1813 (See Alternative - Provider: Juliet Black, RN)2248 (See Alternative - Provider: Kristy Contreras, LISA) 0316 (See Alternative - Provider: Kristy Contreras, LISA)0919 (See Alternative - Provider: Nati Gordon, LISA)1435 (See Alternative - Provider: Nati Gordon, LISA) oxyCODONE (Roxicodone) immediate release tablet 5 mg(Linked Group 2) 5 mg, Oral, Every 4 hours PRN, severe pain (7-10), Starting on Mon04/25/25 at 0902 0743 (Given - Provider: Evelin Vines, RN)1238 (Given - Provider: Evelin iVnes, RN)2017 (Given - Provider: Saskia Bess RN) 0820 (Given - Provider: Juliet Black, RN)1404 (Given - Provider: Juliet Black, RN)1813 (Given - Provider: Juliet Black, RN)2248 (Given - Provider: Kristy Contreras, LISA) 0316 (Given - Provider: Kristy Contreras, LISA)0919 (Given - Provider: Nati Gordon, LISA)1435 (Given - Provider: Nati Gordon, LISA) sodium chloride 0.9% (NS) flush 30 mL 30 mL, IntraVENous, PRN, line care, Starting on Mon04/23/25 at 0153, After every IV line use sodium chloride 0.9% (NS) flush 30 mL 30 mL, IntraVENous, PRN, line care, Starting on Mon04/23/25 at 0153 Linked Groups Order Group 1: ondansetron ODT (Zofran-ODT) disintegrating tablet 4 mgJump to med 4 mg, Oral, Every 8 hours PRN, nausea, vomiting, Starting on Mon04/23/25 at 0153, 1st Line. If inadequate response within 60 minutes, proceed to next-line agent or contact provider if no further options ordered. Patient should allow tablet to dissolve on tongue. Do not remove from blister pack until just before administering. Or ondansetron (Zofran) injection 4 mgJump to med 4 mg, IntraVENous, Every 6 hours PRN, nausea, vomiting, Starting on Mon04/23/25 at 0153, 1st Line. Give IV if patient is unable to take orally. If inadequate response within 60 minutes, proceed to next-line agent or contact provider if no further options ordered. Group 2: oxyCODONE (Roxicodone) immediate release tablet 2.5 mgJump to med 2.5 mg, Oral, Every 4 hours PRN, moderate pain (4-6), Starting on Mon04/25/25 at 0902 Or oxyCODONE (Roxicodone) immediate release tablet 5 mgJump to med 5 mg, Oral, Every 4 hours PRN, severe pain (7-10), Starting on Mon04/25/25 at 0902 FOR RECORDS PERTAINING TO PATIENTS WHO ARE [...] BE BASED ON THE PRIMARY CLINICAL RECORDS. [employer] [facility]. provides no warranty or guarantee of the accuracy or completeness of information in this document.
[2025-07-02 23:34] VITALS: BP 153/93; PULSE 74; RESP 18; TEMP 36.7; O2SAT 92
== END 2025-07-02 23:34 | disposition home or self-care (01) ==
PROVIDERS: Emergency Provider Emergency Medicine; PCP Family Medicine; Visit Provider Emergency Medicine
DX: M25.552 Pain in left hip (principal); I11.0 Hypertensive heart disease with heart failure; I50.9 Heart failure, unspecified; J44.9 Chronic obstructive pulmonary disease, unspecified; I48.0 Paroxysmal atrial fibrillation; M16.12 Unilateral primary osteoarthritis, left hip; Z87.891 Personal history of nicotine dependence; G89.29 Other chronic pain; M54.9 Dorsalgia, unspecified; Z79.891 Long term (current) use of opiate analgesic; Z79.01 Long term (current) use of anticoagulants; Z79.899 Other long term (current) drug therapy; Z79.51 Long term (current) use of inhaled steroids; Z79.84 Long term (current) use of oral hypoglycemic drugs; K21.9 Gastro-esophageal reflux disease without esophagitis; Z90.710 Acquired absence of both cervix and uterus; Z90.49 Acquired absence of other specified parts of digestive tract
CPT/HCPCS: 73502; 73700; 99282